=== PATIENT | female | born 1950 | race Caucasian/White ===

== ENCOUNTER 2017-06-28 02:35 | Inpatient (IN) | payer MEDICARE, SELFPAY ==
[2017-06-28] VITALS (27 sets, daily range): BP systolic 108–157; BP diastolic 55–138; PULSE 89–114; RESP 12–41; TEMP 37.1–38.1; O2SAT 88–99; BMI 31.1; BMI 30.2
--- NOTE | 2017-06-28 02:45 | NURSING ---
CALLED FOR EKG PER RN REQUEST, PULLED OLD EKG'S FOR
--- NOTE | 2017-06-28 02:48 | EKG12_ITS ---
Test Reason : SOB Blood Pressure : / mmHG Vent. Rate : 106 BPM Atrial Rate : 106 BPM P-R Int : 160 ms QRS Dur : 084 ms QT Int : 334 ms P-R-T Axes : 084 063 041 degrees QTc Int : 443 ms Sinus tachycardia Low voltage QRS (limb leads) Confirmed by JAMES LEACH, LUZ ([id number]), editor producer GOPI RAMIREZ ([id number] on 06/29/2017 3:39:27 PM Referred By: CHAPO Confirmed By:LUZ RAMIREZ MD
--- NOTE | 2017-06-28 02:48 | RAD_ITS ---
STUDY: X-RAY CHEST REASON FOR EXAM: Female, 66 years old. Shortness of breath. TECHNIQUE: AP portable chest. COMPARISON: 06/24/2017. FINDINGS: The lungs are clear and expanded. There is no demonstrated pleural abnormality. Normal size heart. Normal mediastinum and denae. Normal visualized pulmonary arteries. Normal visualized aortic arch and descending thoracic aorta. Osseous structures unchanged. There is no demonstrated abnormality of the visualized soft tissue structures of the upper abdomen. RAD/Chest 1 View (Portable) IMPRESSION: No acute cardiopulmonary disease. Electronically Signed: Danilo Rodriguez MD at 4:48 EST , Service support ,
[2017-06-28 03:03] LABS: Absolute Lymphocyte Count 1.08 X10^3/ul (0.83-4.51); Absolute Neutrophil Count 3.8 X10^3/uL (2.0-7.7); Basophil# 0.03 X10^3/uL; Basophil% 0.6 % (0-1); Eosinophil# 0.02 X10^3/uL; Eosinophils% 0.4 % (0-5); Hematocrit 43.3 % (37-47); Lymphocyte # 1.08 X10^3/ul (4.0); Lymphocyte % 20.1 % (19-41); Mean Corp Hgb Conc 32.3 g/gl (32-36); Mean Corpuscular Volume 95.8 fL (81-99); Mean Platelet Vol. 9.3 fl (6.2-12.0); Monocyte# 0.39 X10^3/uL; Monocyte% 7.3 % (0-10); Neutrophil # 3.82 X10^3/uL (2.7-7.7); Neutrophil % 71.2 % (47-70); Platelet Count 171 K/mm3 (150-450); RBC Distribution Width CV 13.6 % (11.6-14.6); RBC Distribution Width SD 46.5 fl (35.1-43.9); Red Blood Count 4.52 M/mm3 (4.2-5.4); White Blood Count 5.4 K/mm3 (4.4-11.0)
[2017-06-28] MEDS: Albuterol 2.5 MG/3 ML VIAL.NEB. INHALATION (03:07)
[2017-06-28] MEDS: Ipratropium/Albuterol Sulfate 3 ML AMPUL.NEB INHALATION ×6 (03:07→22:40)
[2017-06-28 03:11] LABS: Allen Test POS; Base Excess 5 mmol/L (-2 to +2); Bicarbonate 29.6 mmol/L (22-26); Blood Gas Specimen Type ART; FI02 50; PO2 116 mmHG (75-100); SITE L Radial; SO2 98 % (95-99); Time Given 300; Total Carbon Dioxide 31 mmol/L; pCO2 48.4 mmHg (35-45); pH 7.39 (7.35-7.45)
[2017-06-28] MEDS: Acetaminophen 500 MG Tablet 1000 MG PO (03:11)
[2017-06-28] MEDS: 0.9% Normal Saline 1,000 ML 999 ML IV (03:12)
[2017-06-28] MEDS: MethylPREDNISolone 125 MG/2 ML Vial IV (03:17)
[2017-06-28 03:51] LABS: POSITIVE COUNT NO; POSITIVE DIFFERENTIAL NO; POSITIVE MORPHOLOGY NO
[2017-06-28 03:55] LABS: Anion Gap 9 (5-15); BUN 9 mg/dL (7-18); BUN/Creat Ratio 17.8 RATIO (10-20); Calcium,Total 8.3 mg/dL (8.5-10.1); Chloride 101 mmol/L (98-107); Creatinine, Serum 0.51 mg/dL (0.55-1.02); EST Glomerular Filtration Rate 129 mL/min (>60); Est Glom Filt Rate - Afr Amer 156 mL/min (>60); Estimated Creatinine Clearance 49.12 ml/min; Glucose 144 mg/dL (70-110); Potassium 3.7 mmol/L (3.5-5.1); Sodium Level 141 mmol/L (136-145)
--- NOTE | 2017-06-28 05:03 | ED.DCSUM_ITS ---
- ER Visit Summary Date of Service: 06/28/17 Chief Complaint: Shortness of breath History of Present Illness: The patient is a 66 F who presents with shortness of breath. History was somewhat limited as the patient presented in respiratory distress only able speak short sentences. She does have a history of COPD. She states that she has been ill with congestion rhinorrhea fevers and cough. She has had some nausea vomiting and diarrhea as well. She was recently seen in the emergency department. She had a negative flu swab. She states that she has been short of breath since yesterday but it acutely worsened this afternoon. She complains of chest tightness. Physical Examination: Initial blood pressure 157/138 temperature 100.5 heart rate 114 respiratory rate 41 pulse ox 92% Patient is written respiratory distress significantly tachypneic and only able speak in single word sentences she does have diffuse and story and expiratory wheezing and severely diminished air exchange Heart is regular rhythm tachycardia Abdomen soft nontender Alert No focal or lateralizing neurological deficits Test Results: EKG shows sinus rhythm at rate 106. CBC BMP troponin unremarkable. ABG shows pH 7.39 PCO2 48 PO2 116. Chest x-ray shows no acute process. Emergency Department Course and Treatment: Although the patient was maintaining a normal oxygen saturation she was in significant distress and was placed on BiPAP with significant improvement in work of breathing. She was treated with IV Solu-Medrol and IV Levaquin for COPD exacerbation. She was given Tylenol for fever. On reevaluation she is resting comfortably. We will try to wean her off BiPAP to Ventimask or nasal cannula. Patient to be discussed with hospitalist and admitted. Treatment Plan: [] Disposition: Admit Impression: COPD exacerbation This note was generated with epicurio dictation software. It may contain incorrect words, spelling, and punctuation that were not noted in review of the chart prior to signing ED Disposition - Plan for ED Patient: Chief Complaint: Shortness of Breath Referrals: Patel Veliz Chi, MD [Primary Care Provider] -
--- NOTE | 2017-06-28 06:04 | HP.PCM_ITS ---
Problem List (1) Acute exacerbation of chronic obstructive airways disease Status: Acute (2) Depression Status: Chronic (3) Insomnia Status: Chronic Comment: She takes Temazepam every night for sleep, prescribed by Dr. Veliz (4) Hypertension Status: Chronic (5) Physical debility Status: Chronic (6) Degenerative disc disease, lumbar Status: Chronic (7) Pain, chronic Status: Chronic (8) Seizure disorder Status: Chronic (9) Restless leg syndrome Status: Chronic (10) Obstructive sleep apnea Status: Chronic Comment: non-compliant with CPAP but has oxygen to wear at night (11) Smokes with greater than 40 pack year history Status: Chronic History of Present Illness Date of Admission: 06/28/17 Chief Complaint: shortness of breath The patient is a 66 year old female patient with a history of COPD presents to the ER with shortness of breath. She states she has been unable to smoke a cigarette for two days. This morning she was more acute and unable to get a deep breath in. Upon arrival to the ER she was restless and her respiratory rate was at 28 per minute. BIPAP was initiated and ABG done. She responded to this therapy. Chest films are negative for acute disease. The patient will need to be admitted for COPD exacerbation. She is requesting her methadone which she takes for spinal stenosis and seems very anxious about this. Past Medical History Past Medical History (Chronic Problems): Chronic Problems Depression (Chronic) Insomnia (Chronic) She takes Temazepam every night for sleep, prescribed by Dr. Veliz Hypertension (Chronic) Physical debility (Chronic) Degenerative disc disease, lumbar (Chronic) Pain, chronic (Chronic) Seizure disorder (Chronic) Restless leg syndrome (Chronic) COPD (chronic obstructive pulmonary disease) (Chronic) 1 ppd now smoker 4 ppd Obstructive sleep apnea (Chronic) non-compliant with CPAP but has oxygen to wear at night Smokes with greater than 40 pack year history (Chronic) Allergies Penicillins Allergy (Verified 06/28/17 02:38) Anaphylaxis codeine Adverse Reaction (Verified 06/28/17 02:38) Nausea Home Medications: Ambulatory Orders Medication Instructions Recorded Albuterol Aerosols [Ventolin 2.5 mg INHALATION Q4H PRN 05/12/16 Aerosols] Albuterol IH (ProAir) [Proair Hfa] 2 puff INHALATION BID 05/12/16 Alendronate Sodium [Fosamax] 70 mg PO Q7D@0700 05/12/16 Calcium Carbonate/Vitamin D3 1 each PO DAILY 05/12/16 [Oyster Shell 500-Vit D3 200 Tb] Etodolac 400 mg PO BID 05/12/16 Fluticasone/Salmeterol [Advair 2 puff INHALATION BID 05/12/16 250/50 Mcg Diskus] Gabapentin [Neurontin] 300 mg PO BIDCM 05/12/16 Methadone HCl 10 mg PO 4X/DAY 05/12/16 Phenytoin Na [Dilantin] 100 mg PO 4X/DAY 05/12/16 Pravastatin [Pravachol] 40 mg PO DAILY 05/12/16 Ropinirole HCl [Requip] 2 mg PO DAILY 05/12/16 Tolterodine Tartrate [Detrol LA] 4 mg PO DAILY 05/12/16 Bisacodyl [Dulcolax] 10 mg PO DAILY PRN PRN #0 tablet 06/25/16 Famotidine [Pepcid] 20 mg PO BID tablet 06/25/16 Mirtazapine [Remeron] 15 mg PO QHS tablet 06/25/16 Phenobarbital 30 mg PO BID #20 tablet 06/25/16 Benzonatate [Tessalon Perle] 100 mg PO 4X/DAY PRN PRN #30 cap 06/24/17 Oseltamivir Phosphate [Tamiflu] 75 mg PO BID #9 cap 06/24/17 Prednisone [Deltasone] 20 mg PO BID #10 tab 06/24/17 Temazepam [Restoril] 30 mg PO QHS 06/24/17 Surgical History: appendectomy, cholecystectomy, - - Fractured right ankle, carpal tunnel surgery, removal of teeth, right ovariectomy and fallopian tube removal. 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 Denies: Sputum production Gastrointestinal: Denies: Abdominal Pain, Nausea, Vomiting Genitourinary: Denies: Dysuria Musculoskeletal: Reports: Back Pain. Denies: Joint Pain, Joint Tenderness Skin: Denies: Rash, Wounds Neurological: Denies: Numbness, Tingling, Focal weakness Psychiatric: Reports: Anxiety. Denies: Depression, Homicidal Ideations, Suicidal Ideations Hematologic/ Lymphatic: Denies: Easy Bruising, Easy Bleeding VTE Information - Inpt Only VTE Present on Admission: No VTE Mechan Device Prophylaxis: None VTE Pharm Prophylaxis ordered?: Yes - Physical Exam General: Alert, Oriented x3, Cooperative HEENT: Atraumatic, Normocephalic Neck: Supple Lungs: Diminished, Rhonchi, Short of Breath, Tachypneic, Wheezes Cardiovascular: Regular rate, Normal S1, Normal S2, No murmurs Abdomen: Bowel Sounds Present, Soft, Non Tender, Obese Extremities: No edema Skin: No rashes Musculoskeletal: No Tenderness to Palpation of Joints or Extremities Neurological: Neuro grossly intact Psych/Mental Status: Normal Affect, Appropriate Vital Signs Temp Pulse Resp BP Pulse Ox 100.5 F H 99 19 H 139/71 H 98 06/28/17 02:36 06/28/17 04:06 06/28/17 04:06 06/28/17 04:06 06/28/17 04:06 Oxygen Delivery Method Bi-pap Weight: 187 lb 2.759 oz Body Mass Index (BMI) 31.1 Laboratory Tests Past 24 Hrs 06/28/17 06/28/17 06/28/17 02:45 02:45 03:04 WBC 5.4 RBC 4.52 Hgb 14.0 Hct 43.3 MCV 95.8 MCH 31.0 MCHC 32.3 RDW 13.6 RDW Differential 46.5 H Plt Count 171 MPV 9.3 Immature Gran % (Auto) 0.400 Neut % (Auto) 71.2 H Lymph % (Auto) 20.1 [place] % (Auto) 7.3 Eos % (Auto) 0.4 Baso % (Auto) 0.6 Absolute Neuts (auto) 3.8 Absolute Lymphs (auto) 1.08 Total Counted Not Reportable Specimen Type ART Sample Site L Radial pH 7.39 Bicarbonate Actual 29.6 H POC Total CO2 31 Base Excess 5 H O2 Saturation 98 O2 % 50 ABG pCO2 48.4 H ABG pO2 116 H Romario Test POS O2 Delivery Device Vent Mask Blood Gas Notified Whom ED MD Blood Gas Notified Time 300 Sodium 141 Potassium 3.7 Chloride 101 Carbon Dioxide 31.0 Anion Gap 9 BUN 9 Creatinine 0.51 L Estim Creat Clear Calc 49.12 Est GFR (MDRD) Af Amer 156 Est GFR (MDRD) Non-Af 129 BUN/Creatinine Ratio 17.8 Glucose 144 H Calcium 8.3 L Troponin I < 0.02 Assessment/Plan Chronic Problems Depression (Chronic) Insomnia (Chronic) She takes Temazepam every night for sleep, prescribed by Dr. Veliz Hypertension (Chronic) Physical debility (Chronic) Degenerative disc disease, lumbar (Chronic) Pain, chronic (Chronic) Seizure disorder (Chronic) Restless leg syndrome (Chronic) COPD (chronic obstructive pulmonary disease) (Chronic) 1 ppd now smoker 4 ppd Obstructive sleep apnea (Chronic) non-compliant with CPAP but has oxygen to wear at night Smokes with greater than 40 pack year history (Chronic) Assessment - COPD exacerbation Plan - admit to medical surgical floor - continue BIPAP - solumedrol 60mg IV q 6hrs - levaquin 500mg IV q day - Duoneb INH q 4hrs - continue routine home medications for stable conditions - LMWH for DVT prophylaxis - smoking cessation encouraged Code Visit Inpatient E&M: 92827 Init Hosp L3
[2017-06-28] MEDS: LORazepam 2 MG/ML Syringe 1 MG IV (06:25)
--- NOTE | 2017-06-28 06:37 | NURSING ---
304 COPD EXAC CED
--- NOTE | 2017-06-28 09:54 | NURSING ---
NEW ROOM 105
--- NOTE | 2017-06-28 10:07 | CASEMGMT ---
Social Work Note Placed call to Svitlana Walker as she was the pt's old block and case maker through [employer] [facility]. Notified that the pt had been admitted this morning for COPD exacerbation. According to Svitlana the pt has a new block and case maker, Laury Weldon, who can be contacted at [phone]. Svitlana to update Laury. Notified CRISTIANO Pablo, as the pt moved to her unit PCU of this information. DEBBIE CooperW
--- NOTE | 2017-06-28 10:50 | CPS ---
PT TRANSPORTED TO PCU ON 4L NC. SPO2 96%. UPON ARRIVAL TO PCU PT COMPLAINING OF SOB AND COUGH. PT PLACED BACK ON BIPAP AND REPORT GIVEN TO FLOOR THERAPIST. NO FURTHER NEEDS AT THIS TIME.
[2017-06-28] MEDS: Pramipexole Di-HCl 1 MG Tablet PO (12:04)
[2017-06-28] MEDS: Calcium Carb/Vitamin D 1 TABLET Tablet PO (12:04)
[2017-06-28] MEDS: MethylPREDNISolone 125 MG/2 ML Vial 60 MG IV ×3 (13:17→23:01)
[2017-06-28] MEDS: Methadone 10 MG Tablet PO ×3 (13:18→22:58)
[2017-06-28] MEDS: Enoxaparin 40 MG/0.4 ML Syringe SC (13:19)
[2017-06-28] MEDS: Tolterodine Tartrate 4 MG CAP.SA PO (13:19)
[2017-06-28] MEDS: Phenytoin Na 100 MG Capsule PO ×3 (13:19→22:58)
[2017-06-28] MEDS: Gabapentin 300 MG Capsule PO ×2 (13:19→17:13)
[2017-06-28] MEDS: Famotidine 20 MG Tablet PO ×2 (13:19→22:58)
[2017-06-28] MEDS: 0.9% NaCl Peripheral Flush Adult/Peds IV ×3 (13:23→23:02)
--- NOTE | 2017-06-28 13:55 | PCM.PN.HOSP ---
Patient Problems: Active and Suspected Problems Acute exacerbation of chronic obstructive airways disease (Acute) Subjective: Breathing better with the BiPAP Vitals/I&O's: Vital Signs Temp Pulse Resp BP Pulse Ox 37.3 C 96 18 128/77 H 98 06/28/17 11:00 06/28/17 11:13 06/28/17 11:00 06/28/17 11:00 06/28/17 11:00 Oxygen Delivery Method Bi-pap Weight: 82.4 kg Body Mass Index (BMI) 30.2 Intake and Output for Last 24 Hours 06/26/17 06/27/17 06/28/17 23:59 23:59 23:59 Intake Total 120 / 120 Balance 120 / 120 General: Alert, Cooperative, No apparent distress HEENT: Atraumatic, Normocephalic Neck: No Nodes, Thyroid Normal Size and Texture Lungs: No rhonchi, No wheeze, Diminished Cardiovascular: Regular rate, Regular Rhythm, Normal S1, Normal S2, No murmurs Abdomen: Bowel Sounds Present, Soft, Non Tender, Non-Distended, No Hepato-splenomegaly Extremities: No edema, No Calf Tenderness Psych/Mental Status: Normal Affect, Appropriate Current Medications Acetaminophen (Tylenol) 650 mg PO Q6H PRN PRN PRN Reason: Mild Pain (scale 0-3)/T>100.7 Albuterol/Ipratropium (Duoneb) 3 ml INHALATION Q4H.RT [facility] Last Admin: 06/28/17 11:00 Dose: 3 ml Alendronate Sodium (Fosamax) 70 mg PO Q7D@0700 [facility] Benzonatate (Tessalon Perle) 100 mg PO 4X/DAY PRN PRN PRN Reason: COUGH Bisacodyl (Dulcolax) 10 mg PO DAILY PRN PRN PRN Reason: Constipation Calcium/Vitamin D (Os-Nolan 500mg + D) [facility] Last Admin: 06/28/17 12:04 Dose: 1 tablet Enoxaparin Sodium (Lovenox) 40 mg SC DAILY@1000 [facility] Last Admin: 06/28/17 13:19 Dose: 40 mg Famotidine (Pepcid) 20 mg PO BID [facility] Last Admin: 06/28/17 13:19 Dose: 20 mg Gabapentin (Neurontin) [facility] Last Admin: 06/28/17 13:19 Dose: 300 mg Levofloxacin (Levaquin) 500 mg in 100 mls @ 100 mls/hr IV Q24 [facility] Magnesium Hydroxide (Milk Of Magnesia) 30 ml PO DAILY PRN PRN PRN Reason: Constipation Methadone HCl () 10 mg PO 4X/DAY [facility] Last Admin: 06/28/17 13:18 Dose: 10 mg Methylprednisolone (Solu-Medrol) 60 mg IV Q6 [facility] Last Admin: 06/28/17 13:17 Dose: 60 mg Mirtazapine (Remeron) 15 mg PO QHS [facility] Ondansetron HCl (Zofran) 4 mg IV Q8H PRN PRN PRN Reason: Nausea Phenobarbital (Phenobarbital) 32.4 mg PO BID [facility] Last Admin: 06/28/17 13:17 Dose: 32.4 mg Phenytoin Sodium (Dilantin) 100 mg PO 4X/DAY [facility] Last Admin: 06/28/17 13:19 Dose: 100 mg Pramipexole Dihydrochloride (Mirapex) 1 mg PO DAILY [facility] Last Admin: 06/28/17 12:04 Dose: 1 mg Pravastatin Sodium (Pravachol) 40 mg PO DAILY@2200 [facility] Sodium Chloride () 5 - 30 ml IV UD PRN PRN Reason: SALINE FLUSH Last Admin: 06/28/17 13:23 Dose: 10 ml Temazepam (Restoril) 30 mg PO HS [facility] Tolterodine Tartrate (Detrol La) 4 mg PO DAILY [facility] Last Admin: 06/28/17 13:19 Dose: 4 mg Assessment/Plan Active and Suspected Problems Acute exacerbation of chronic obstructive airways disease (Acute) 1. Acute COPD exacerbation . Improved but still requiring BiPAP with bronchodilators, Solu-Medrol. Wean BiPAP as tolerated. 2. DVT prophylaxis with Lovenox Code Visit Procedures: Other Procedure - See Report - Non billable rounding.
--- NOTE | 2017-06-28 13:58 | PN_ITS ---
Patient Problems: Active and Suspected Problems Acute exacerbation of chronic obstructive airways disease (Acute) Subjective: Breathing better with the BiPAP Vitals/I&O's: Vital Signs Temp Pulse Resp BP Pulse Ox 37.3 C 96 18 128/77 H 98 06/28/17 11:00 06/28/17 11:13 06/28/17 11:00 06/28/17 11:00 06/28/17 11:00 Oxygen Delivery Method Bi-pap Weight: 82.4 kg Body Mass Index (BMI) 30.2 Intake and Output for Last 24 Hours 06/26/17 06/27/17 06/28/17 23:59 23:59 23:59 Intake Total 120 / 120 Balance 120 / 120 General: Alert, Cooperative, No apparent distress HEENT: Atraumatic, Normocephalic Neck: No Nodes, Thyroid Normal Size and Texture Lungs: No rhonchi, No wheeze, Diminished Cardiovascular: Regular rate, Regular Rhythm, Normal S1, Normal S2, No murmurs Abdomen: Bowel Sounds Present, Soft, Non Tender, Non-Distended, No Hepato- splenomegaly Extremities: No edema, No Calf Tenderness Psych/Mental Status: Normal Affect, Appropriate Current Medications Acetaminophen (Tylenol) 650 mg PO Q6H PRN PRN PRN Reason: Mild Pain (scale 0-3)/T>100.7 Albuterol/Ipratropium (Duoneb) 3 ml INHALATION Q4H.RT [facility] Last Admin: 06/28/17 11:00 Dose: 3 ml Alendronate Sodium (Fosamax) 70 mg PO Q7D@0700 [facility] Benzonatate (Tessalon Perle) 100 mg PO 4X/DAY PRN PRN PRN Reason: COUGH Bisacodyl (Dulcolax) 10 mg PO DAILY PRN PRN PRN Reason: Constipation Calcium/Vitamin D (Os-Nolan 500mg + D) [facility] Last Admin: 06/28/17 12:04 Dose: 1 tablet Enoxaparin Sodium (Lovenox) 40 mg SC DAILY@1000 [facility] Last Admin: 06/28/17 13:19 Dose: 40 mg Famotidine (Pepcid) 20 mg PO BID [facility] Last Admin: 06/28/17 13:19 Dose: 20 mg Gabapentin (Neurontin) [facility] Last Admin: 06/28/17 13:19 Dose: 300 mg Levofloxacin (Levaquin) 500 mg in 100 mls @ 100 mls/hr IV Q24 [facility] Magnesium Hydroxide (Milk Of Magnesia) 30 ml PO DAILY PRN PRN PRN Reason: Constipation Methadone HCl () 10 mg PO 4X/DAY [facility] Last Admin: 06/28/17 13:18 Dose: 10 mg Methylprednisolone (Solu-Medrol) 60 mg IV Q6 [facility] Last Admin: 06/28/17 13:17 Dose: 60 mg Mirtazapine (Remeron) 15 mg PO QHS [facility] Ondansetron HCl (Zofran) 4 mg IV Q8H PRN PRN PRN Reason: Nausea Phenobarbital (Phenobarbital) 32.4 mg PO BID [facility] Last Admin: 06/28/17 13:17 Dose: 32.4 mg Phenytoin Sodium (Dilantin) 100 mg PO 4X/DAY [facility] Last Admin: 06/28/17 13:19 Dose: 100 mg Pramipexole Dihydrochloride (Mirapex) 1 mg PO DAILY [facility] Last Admin: 06/28/17 12:04 Dose: 1 mg Pravastatin Sodium (Pravachol) 40 mg PO DAILY@2200 [facility] Sodium Chloride () 5 - 30 ml IV UD PRN PRN Reason: SALINE FLUSH Last Admin: 06/28/17 13:23 Dose: 10 ml Temazepam (Restoril) 30 mg PO HS [facility] Tolterodine Tartrate (Detrol La) 4 mg PO DAILY [facility] Last Admin: 06/28/17 13:19 Dose: 4 mg Assessment/Plan Active and Suspected Problems Acute exacerbation of chronic obstructive airways disease (Acute) 1. Acute COPD exacerbation . Improved but still requiring BiPAP with bronchodilators, Solu-Medrol. Wean BiPAP as tolerated. 2. DVT prophylaxis with Lovenox Code Visit Procedures: Other Procedure - See Report - Non billable rounding.
[2017-06-28] MEDS: Temazepam 15 MG Capsule 30 MG PO (22:58)
[2017-06-28] MEDS: Mirtazapine 15 MG Tablet PO (22:58)
[2017-06-28] MEDS: Pravastatin 40 MG Tablet PO (22:59)
[2017-06-29] VITALS (18 sets, daily range): BP systolic 95–130; BP diastolic 44–72; PULSE 59–91; RESP 12–22; TEMP 36.3–36.8; O2SAT 95–99
[2017-06-29] MEDS: Ipratropium/Albuterol Sulfate 3 ML AMPUL.NEB INHALATION ×6 (02:40→23:00)
[2017-06-29] MEDS: MethylPREDNISolone 125 MG/2 ML Vial 60 MG IV ×4 (05:10→23:48)
[2017-06-29] MEDS: 0.9% NaCl Peripheral Flush Adult/Peds IV ×2 (05:10→10:58)
--- NOTE | 2017-06-29 05:32 | NURSING ---
pt states she sometimes cuts her upper arms to relieve stress and denies any suicidal ideations. will continue to monitor.
[2017-06-29 06:39] LABS: Absolute Lymphocyte Count 1.68 X10^3/ul (0.83-4.51); Absolute Neutrophil Count 2.2 X10^3/uL (2.0-7.7); Basophil# 0.04 X10^3/uL; Basophil% 0.9 % (0-1); Hematocrit 34.6 % (37-47); Hemoglobin 11.2 g/dl (12.0-15.0); Lymphocyte # 1.68 X10^3/ul (4.0); Lymphocyte % 36.9 % (19-41); Mean Corp Hgb Conc 32.4 g/gl (32-36); Mean Corpuscular Hgb 31.1 pg (27.0-32.0); Mean Corpuscular Volume 96.1 fL (81-99); Mean Platelet Vol. 9.2 fl (6.2-12.0); Monocyte# 0.61 X10^3/uL; Monocyte% 13.4 % (0-10); Neutrophil # 2.19 X10^3/uL (2.7-7.7); Neutrophil % 48.1 % (47-70); Platelet Count 157 K/mm3 (150-450); RBC Distribution Width CV 13.6 % (11.6-14.6); RBC Distribution Width SD 45.7 fl (35.1-43.9); White Blood Count 4.6 K/mm3 (4.4-11.0)
[2017-06-29 06:43] LABS: Differential Indicated SCAN CRITERIA MET; POSITIVE COUNT NO; POSITIVE DIFFERENTIAL NO; POSITIVE MORPHOLOGY YES
[2017-06-29 07:00] LABS: ALB/GLOB Ratio 0.6 RATIO (0.9-2.4); AST(SGOT) 50 U/L (15-37); Alanine Aminotransfer ALT/SGPT 31 U/L (12-78); Albumin, Serum 2.5 g/dL (3.4-5.0); Alkaline Phosphatase 58 U/L (45-117); Anion Gap 9 (5-15); BUN 19 mg/dL (7-18); BUN/Creat Ratio 47.6 RATIO (10-20); Calcium,Total 7.7 mg/dL (8.5-10.1); Chloride 103 mmol/L (98-107); EST Glomerular Filtration Rate 169 mL/min (>60); Est Glom Filt Rate - Afr Amer 205 mL/min (>60); Estimated Creatinine Clearance 49.12 ml/min; Globulin 3.9 g/dL (2.2-4.2); Glucose 121 mg/dL (70-110); Potassium 3.7 mmol/L (3.5-5.1); Protein, Total 6.4 g/dL (6.4-8.2); Sodium Level 138 mmol/L (136-145)
[2017-06-29 07:05] LABS: Differential Comment SCANNED
[2017-06-29] MEDS: Gabapentin 300 MG Capsule PO ×2 (08:03→17:13)
[2017-06-29] MEDS: Calcium Carb/Vitamin D 1 TABLET Tablet PO (08:03)
--- NOTE | 2017-06-29 08:15 | PCM.CONS.GEN ---
Problem List (1) COPD (chronic obstructive pulmonary disease) Status: Acute Qualifiers: COPD type: COPD with acute exacerbation Qualified Code(s): J44.1 - Chronic obstructive pulmonary disease with (acute) exacerbation Comment: 1 ppd now smoker 4 ppd (2) Depression Status: Chronic (3) Insomnia Status: Chronic Comment: She takes Temazepam every night for sleep, prescribed by Dr. Veliz (4) Hypertension Status: Chronic (5) Degenerative disc disease, lumbar Status: Chronic (6) Pain, chronic Status: Chronic (7) Seizure disorder Status: Chronic (8) Restless leg syndrome Status: Chronic (9) Obstructive sleep apnea Status: Chronic Comment: non-compliant with CPAP but has oxygen to wear at night (10) Smokes with greater than 40 pack year history Status: Chronic Reason for Consult Date of Consultation: 06/29/17 Reason for Consultation: COPD History of Present Illness: The patient is a 66 year old F with a past medical history as below who presented to the ER on 06/28/17 with complaints of increased shortness of breath, intermittent fevers and chills, cough, chest tightness, and chest congestion. The patient did present to the ER on 06/24/17 with upper respiratory symptoms. A chest x-ray was done at that time and showed no acute cardiopulmonary disease. A flu swab was also completed which was normal. The patient was sent home. She reports she then worsened with her cough, shortness of breath, and fevers/chills, so she came back. She denies any recent sick contacts, antibiotic use, or steroids. Actually, she states she has never been on steroids despite her lung history. She denies any history of pneumonia, except when she was a teenager. She has been admitted to the hospital for COPD exacerbation previously, about the same time last year. Patient has a history of obstructive sleep apnea per her report, but she is not compliant with her CPAP. She does however wear 4 L of oxygen continuously throughout the day and night. Patient reports she has been on oxygen for over 10 years, which is when she had her sleep study as well. She believes she had her sleep study here at [facility]. She lives alone in her apartment complex, and states there are several people there that she has been around and that have been coughing. The patient denies any history of tuberculosis or exposure to asbestos. 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 Workup in the ER included chest x-ray which was negative for acute cardiopulmonary disease, did show hyperinflation. Lab work did not show a leukocytosis. Chemistry was remarkable for a creatinine of 0.51, glucose 144. Troponin was negative. ABG was performed on a Venturi mask and showed a pH of 7.39, bicarb of 29.6, PCO2 48.4, PO2 116. She was then placed on BiPAP due to significant respiratory distress and had significant improvement. She was given 4 mg of IV morphine ?1, IV Solu-Medrol, IV Levaquin, and Tylenol for fever. She was admitted to the progressive care unit for further management of her presumed COPD exacerbation. Past Medical History Past Medical History (Chronic Problems): Chronic Problems Depression (Chronic) Insomnia (Chronic) She takes Temazepam every night for sleep, prescribed by Dr. Veliz Hypertension (Chronic) Physical debility (Chronic) Degenerative disc disease, lumbar (Chronic) Pain, chronic (Chronic) Seizure disorder (Chronic) Restless leg syndrome (Chronic) Obstructive sleep apnea (Chronic) non-compliant with CPAP but has oxygen to wear at night Smokes with greater than 40 pack year history (Chronic) Allergies Penicillins Allergy (Verified 06/28/17 02:38) Anaphylaxis codeine Adverse Reaction (Verified 06/28/17 02:38) Nausea Home Medications: Ambulatory Orders Medication Instructions Recorded Albuterol Aerosols [Ventolin 2.5 mg INHALATION Q4H PRN 05/12/16 Aerosols] Albuterol IH (ProAir) [Proair Hfa] 2 puff INHALATION BID 05/12/16 Alendronate Sodium [Fosamax] 70 mg PO Q7D@0700 05/12/16 Calcium Carbonate/Vitamin D3 1 each PO DAILY 05/12/16 [Oyster Shell 500-Vit D3 200 Tb] Etodolac 400 mg PO BID 05/12/16 Fluticasone/Salmeterol [Advair 2 puff INHALATION BID 05/12/16 250/50 Mcg Diskus] Gabapentin [Neurontin] 300 mg PO BIDCM 05/12/16 Methadone HCl 10 mg PO 4X/DAY 05/12/16 Phenytoin Na [Dilantin] 100 mg PO 4X/DAY 05/12/16 Pravastatin [Pravachol] 40 mg PO DAILY 05/12/16 Ropinirole HCl [Requip] 2 mg PO DAILY 05/12/16 Tolterodine Tartrate [Detrol LA] 4 mg PO DAILY 05/12/16 Bisacodyl [Dulcolax] 10 mg PO DAILY PRN PRN #0 tablet 06/25/16 Famotidine [Pepcid] 20 mg PO BID tablet 06/25/16 Mirtazapine [Remeron] 15 mg PO QHS tablet 06/25/16 Phenobarbital 30 mg PO BID #20 tablet 06/25/16 Benzonatate [Tessalon Perle] 100 mg PO 4X/DAY PRN PRN #30 cap 06/24/17 Oseltamivir Phosphate [Tamiflu] 75 mg PO BID #9 cap 06/24/17 Prednisone [Deltasone] 20 mg PO BID #10 tab 06/24/17 Temazepam [Restoril] 30 mg PO QHS 06/24/17 Surgical History: appendectomy, cholecystectomy, - - Fractured right ankle, carpal tunnel surgery, removal of teeth, right ovariectomy and fallopian tube removal. Psychiatric History: Depression - untreated [employer] History: No pertinent [employer] history Lives: Alone Smoking Status: Current every day smoker Tobacco Use: Cigarettes Alcohol: None Drugs: None - *Family History Maternal History Items: No pertinent history Paternal History Items: No pertinent history Sibling History Items: No pertinent history Review of Systems Constitutional: Reports: Chills, Fever, Fatigue. Denies: Anorexia, Night Sweats, Malaise, Weakness, Weight Change Eyes: Denies: Vision Change HEENT: Reports: Head Aches, Post Nasal Drip. Denies: Difficulty Swallowing, Nasal bleeding, Nasal Congestion, Sinus Congestion, Sinus Drainage, Sore Throat Cardiovascular: Reports: Chest Tightness, Orthopnea. Denies: Chest Pain, Claudication, Edema, Light Headedness, Palpitations, Paroxysmal Noc. Dyspnea, Syncope Respiratory: Reports: Cough, Shortness of breath at rest, Shortness of breath upon exertion, Sputum production - white, thick, Wheezing. Denies: Hemoptysis, Pleuritic Pain Gastrointestinal: Reports: Diarrhea - x1 several days ago, none since, Nausea - intermittent. Denies: Abdominal Pain, Constipation, Dyspepsia, Hematemesis, Hematochezia, Melena, Vomiting Genitourinary: Denies: Dysuria, Frequency, Hematuria, Nocturia, Retention Gynecological: Reports: - - no concerns Musculoskeletal: Reports: Back Pain - chronic Skin: Reports: Dryness, - - evidence of cutting on legs and upper arms Neurological: Reports: Tremor - UEs at times. Denies: Change in Speech, Confusion, Difficulty swallowing, Focal weakness, Numbness, Tingling, Seizures - none recently Psychiatric: Reports: Anxiety, Depression. Denies: Homicidal Ideations, Suicidal Ideations Endocrine: Denies: Change in Body Habitus, Polydipsia, Polyuria Hematologic/ Lymphatic: Reports: Easy Bruising. Denies: Adenopathy, Anemia, Easy Bleeding, Hx of blood clot Patient Problems: Active and Suspected Problems Acute exacerbation of chronic obstructive airways disease (Acute) Subjective: Patient was seen and examined, she was in mild respiratory distress upon my entering room and watching the news. She was upset that she was interrupted. Reports ongoing shortness of breath at rest and with exertion. She does have a hoarse, productive cough white thick sputum. She denies any sore throat, hemoptysis, dizziness, or syncope. She does have some chest tightness. Reports she does better on the BiPAP and is requesting to go back on as she became more dyspneic with conversation. - Physical Exam General: Alert, Oriented x3, Cooperative, Well developed, Well nourished, - - Conversational dyspnea, tachypnea. Appears anxious HEENT: Atraumatic, Normocephalic Oral: Moist Mucosa, No Gingival or Mucosal Lesions/ Ulcerations, - - Edentulous Neck: Supple, No Nodes, Trachea Midline Lungs: No rales, - - Diminished throughout with global wheezing, rhonchi Cardiovascular: Regular rate, Regular Rhythm, Normal S1, Normal S2, No murmurs, No rub noted, No Gallop Abdomen: Bowel Sounds Present, Soft, Non Tender, Non-Distended, Passing Flatus, Obese Extremities: No clubbing, No cyanosis, No edema, Capillary Refill Less than 3 Seconds, Peripheral Pulses Normal Skin: No rashes, - - Scratches to upper extremities and bilateral shins, admitted to hospitalist that she has been cutting Musculoskeletal: No Tenderness to Palpation of Joints or Extremities Lymphatic: No Cervical, Supraclavicular, or Inguinal Adenopathy Neurological: Cranial nerves II-XII grossly intact, Neuro grossly intact, Motor Exam 5/5 strength throughout Psych/Mental Status: Anxious, Impulsive, - - cooperative after some discussion Vital Signs Temp Pulse Resp BP Pulse Ox 97.4 F L 86 16 95/44 L 97 06/29/17 02:34 06/29/17 07:28 06/29/17 07:28 06/29/17 02:34 06/29/17 07:28 Oxygen Flow Rate 5 Oxygen Delivery Method Bi-pap Weight: 181 lb 10.574 oz Body Mass Index (BMI) 30.2 Intake and Output for Last 24 Hours 06/27/17 06/28/17 06/29/17 23:59 23:59 23:59 Intake Total 240 / 240 460 / 460 Balance 240 / 240 460 / 460 Laboratory Tests Past 24 Hrs 06/29/17 06/29/17 06:00 06:00 WBC 4.6 RBC 3.60 L Hgb 11.2 L Hct 34.6 L MCV 96.1 MCH 31.1 MCHC 32.4 RDW 13.6 RDW Differential 45.7 H Plt Count 157 MPV 9.2 Immature Gran % (Auto) 0.700 Neut % (Auto) 48.1 Lymph % (Auto) 36.9 [place] % (Auto) 13.4 H Eos % (Auto) 0.0 Baso % (Auto) 0.9 Absolute Neuts (auto) 2.2 Absolute Lymphs (auto) 1.68 Total Counted Not Reportable Differential Comment SCANNED Sodium 138 Potassium 3.7 Chloride 103 Carbon Dioxide 26.0 Anion Gap 9 BUN 19 H Creatinine 0.40 L Estim Creat Clear Calc 49.12 Est GFR (MDRD) Af Amer 205 Est GFR (MDRD) Non-Af 169 BUN/Creatinine Ratio 47.6 H Glucose 121 H Calcium 7.7 L Total Bilirubin 0.30 AST 50 H ALT 31 Alkaline Phosphatase 58 Total Protein 6.4 Albumin 2.5 L Globulin 3.9 Albumin/Globulin Ratio 0.6 L Assessment/Plan Active and Suspected Problems Acute exacerbation of chronic obstructive airways disease (Acute) RECOMMENDATIONS 1. Wean oxygen supplementation to keep saturations 88-92%. 2. Encourage incentive spirometer 3. Increase activity as tolerated 4. Continue aerosols, add PRN albuterol 5. Obtain respiratory panel 6. Obtain sputum culture 7. Continue IV steroids 8. Walking oximetry prior to discharge 9. Patient may follow-up in the pulmonary clinic if she so desires, she should have baseline pulmonary function tests and a repeat PSG IMPRESSIONS 1. Acute exacerbation of COPD, presumed Patient with diffuse wheezing, tachypnea, shortness of breath. Requesting to go on BiPAP during my examination as it provides significant subjective relief. Current home inhalers include Advair and Ventolin as needed. She follows with Dr. Veliz, does not have a emergency medicine physician assistant. She has never had any lung function tests in the past. She is on baseline 4 L of oxygen continuously at home. Her chest x-ray was reviewed, did show hyperinflation but no acute cardiopulmonary process. I suspect the patient does have COPD, likely advanced, however this has not been confirmed with PFTs. Plan: Continue Duonebs, add PRN albuterol aerosol. No leukocytosis and no purulent sputum, so would hold off on antibiotics for now. Had a temp of 100.5 on arrival but currently afebrile. Continue with IV steroids. Encourage incentive spirometer and increase activity as tolerated. Wean oxygen supplementation to keep saturations 88-92%. Obtain respiratory panel and sputum culture. The patient should have a walking oximetry prior to discharge. The patient may follow-up in the pulmonary clinic if she desires, she should have baseline pulmonary function tests performed to evaluate lung function. 2. Acute on chronic respiratory failure with hypoxia and hypercapnia Again, patient is on baseline 4 L of oxygen,and has been for over 10 years per her report. There is no pulmonary function tests to review or walking oximetry. Her last CT of the chest that is available to view reported hyperinflation of the lungs consistent with COPD, no pleural abnormality. There was mild intrahepatic biliary duct dilatation. Otherwise normal. She has a significant smoking history, she smoked about 4 PPD for 45 years, recently decreased to about a 1/2 to 1 PPD. She notes she never smokes with her oxygen on. She is not currently interested in smoking cessation, however she has thought about it. Smoking cessation was encouraged. 3. Obstructive sleep apnea Noncompliant with CPAP at home. Patient is on several sedating medications at home which could complicate her CHUY and cause more hypoxia. She reports she wears 4 L when sleeping. It has been a while since her last sleep study, she is unsure when. There is no record in our system. 3.
--- NOTE | 2017-06-29 08:18 | CON.PCM_ITS ---
Problem List (1) COPD (chronic obstructive pulmonary disease) Status: Acute Qualifiers: COPD type: COPD with acute exacerbation Qualified Code(s): J44.1 - Chronic obstructive pulmonary disease with (acute) exacerbation Comment: 1 ppd now smoker 4 ppd (2) Depression Status: Chronic (3) Insomnia Status: Chronic Comment: She takes Temazepam every night for sleep, prescribed by Dr. Veliz (4) Hypertension Status: Chronic (5) Degenerative disc disease, lumbar Status: Chronic (6) Pain, chronic Status: Chronic (7) Seizure disorder Status: Chronic (8) Restless leg syndrome Status: Chronic (9) Obstructive sleep apnea Status: Chronic Comment: non-compliant with CPAP but has oxygen to wear at night (10) Smokes with greater than 40 pack year history Status: Chronic Reason for Consult Date of Consultation: 06/29/17 Reason for Consultation: COPD History of Present Illness: The patient is a 66 year old F with a past medical history as below who presented to the ER on 06/28/17 with complaints of increased shortness of breath, intermittent fevers and chills, cough, chest tightness, and chest congestion. The patient did present to the ER on 06/24/17 with upper respiratory symptoms. A chest x-ray was done at that time and showed no acute cardiopulmonary disease. A flu swab was also completed which was normal. The patient was sent home. She reports she then worsened with her cough, shortness of breath, and fevers/ chills, so she came back. She denies any recent sick contacts, antibiotic use , or steroids. Actually, she states she has never been on steroids despite her lung history. She denies any history of pneumonia, except when she was a teenager. She has been admitted to the hospital for COPD exacerbation previously, about the same time last year. Patient has a history of obstructive sleep apnea per her report, but she is not compliant with her CPAP. She does however wear 4 L of oxygen continuously throughout the day and night. Patient reports she has been on oxygen for over 10 years, which is when she had her sleep study as well. She believes she had her sleep study here at [facility]. She lives alone in her apartment complex, and states there are several people there that she has been around and that have been coughing. The patient denies any history of tuberculosis or exposure to asbestos. 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 Workup in the ER included chest x-ray which was negative for acute cardiopulmonary disease, did show hyperinflation. Lab work did not show a leukocytosis. Chemistry was remarkable for a creatinine of 0.51, glucose 144. Troponin was negative. ABG was performed on a Venturi mask and showed a pH of 7.39, bicarb of 29.6, PCO2 48.4, PO2 116. She was then placed on BiPAP due to significant respiratory distress and had significant improvement. She was given 4 mg of IV morphine ?1, IV Solu-Medrol, IV Levaquin, and Tylenol for fever. She was admitted to the progressive care unit for further management of her presumed COPD exacerbation. Past Medical History Past Medical History (Chronic Problems): Chronic Problems Depression (Chronic) Insomnia (Chronic) She takes Temazepam every night for sleep, prescribed by Dr. Veliz Hypertension (Chronic) Physical debility (Chronic) Degenerative disc disease, lumbar (Chronic) Pain, chronic (Chronic) Seizure disorder (Chronic) Restless leg syndrome (Chronic) Obstructive sleep apnea (Chronic) non-compliant with CPAP but has oxygen to wear at night Smokes with greater than 40 pack year history (Chronic) Allergies Penicillins Allergy (Verified 06/28/17 02:38) Anaphylaxis codeine Adverse Reaction (Verified 06/28/17 02:38) Nausea Home Medications: Ambulatory Orders Medication Instructions Recorded Albuterol Aerosols [Ventolin 2.5 mg INHALATION Q4H PRN 05/12/16 Aerosols] Albuterol IH (ProAir) [Proair Hfa] 2 puff INHALATION BID 05/12/16 Alendronate Sodium [Fosamax] 70 mg PO Q7D@0700 05/12/16 Calcium Carbonate/Vitamin D3 1 each PO DAILY 05/12/16 [Oyster Shell 500-Vit D3 200 Tb] Etodolac 400 mg PO BID 05/12/16 Fluticasone/Salmeterol [Advair 2 puff INHALATION BID 05/12/16 250/50 Mcg Diskus] Gabapentin [Neurontin] 300 mg PO BIDCM 05/12/16 Methadone HCl 10 mg PO 4X/DAY 05/12/16 Phenytoin Na [Dilantin] 100 mg PO 4X/DAY 05/12/16 Pravastatin [Pravachol] 40 mg PO DAILY 05/12/16 Ropinirole HCl [Requip] 2 mg PO DAILY 05/12/16 Tolterodine Tartrate [Detrol LA] 4 mg PO DAILY 05/12/16 Bisacodyl [Dulcolax] 10 mg PO DAILY PRN PRN #0 tablet 06/25/16 Famotidine [Pepcid] 20 mg PO BID tablet 06/25/16 Mirtazapine [Remeron] 15 mg PO QHS tablet 06/25/16 Phenobarbital 30 mg PO BID #20 tablet 06/25/16 Benzonatate [Tessalon Perle] 100 mg PO 4X/DAY PRN PRN #30 cap 06/24/17 Oseltamivir Phosphate [Tamiflu] 75 mg PO BID #9 cap 06/24/17 Prednisone [Deltasone] 20 mg PO BID #10 tab 06/24/17 Temazepam [Restoril] 30 mg PO QHS 06/24/17 Surgical History: appendectomy, cholecystectomy, - - Fractured right ankle, carpal tunnel surgery, removal of teeth, right ovariectomy and fallopian tube removal. 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 Denies: Anorexia, Night Sweats , Malaise, Weakness, Weight Change Eyes: Denies: Vision Change HEENT: Reports: Head Aches, Post Nasal Drip. Denies: Difficulty Swallowing, Nasal bleeding, Nasal Congestion, Sinus Congestion, Sinus Drainage, Sore Throat Cardiovascular: Reports: Chest Tightness, Orthopnea. Denies: Chest Pain, Claudication, Edema, Light Headedness, Palpitations, Paroxysmal Noc. Dyspnea, Syncope Respiratory: Reports: Cough, Shortness of breath at rest, Shortness of breath upon exertion, Sputum production - white, thick, Wheezing. Denies: Hemoptysis, Pleuritic Pain Gastrointestinal: Reports: Diarrhea - x1 several days ago, none since, Nausea - intermittent. Denies: Abdominal Pain, Constipation, Dyspepsia, Hematemesis, Hematochezia, Melena, Vomiting Genitourinary: Denies: Dysuria, Frequency, Hematuria, Nocturia, Retention Gynecological: Reports: - - no concerns Musculoskeletal: Reports: Back Pain - chronic Skin: Reports: Dryness, - - evidence of cutting on legs and upper arms Neurological: Reports: Tremor - UEs at times. Denies: Change in Speech, Confusion, Difficulty swallowing, Focal weakness, Numbness, Tingling, Seizures - none recently Psychiatric: Reports: Anxiety, Depression. Denies: Homicidal Ideations, Suicidal Ideations Endocrine: Denies: Change in Body Habitus, Polydipsia, Polyuria Hematologic/ Lymphatic: Reports: Easy Bruising. Denies: Adenopathy, Anemia, Easy Bleeding, Hx of blood clot Patient Problems: Active and Suspected Problems Acute exacerbation of chronic obstructive airways disease (Acute) Subjective: Patient was seen and examined, she was in mild respiratory distress upon my entering room and watching the news. She was upset that she was interrupted. Reports ongoing shortness of breath at rest and with exertion. She does have a hoarse, productive cough white thick sputum. She denies any sore throat, hemoptysis, dizziness, or syncope. She does have some chest tightness. Reports she does better on the BiPAP and is requesting to go back on as she became more dyspneic with conversation. - Physical Exam General: Alert, Oriented x3, Cooperative, Well developed, Well nourished, - - Conversational dyspnea, tachypnea. Appears anxious HEENT: Atraumatic, Normocephalic Oral: Moist Mucosa, No Gingival or Mucosal Lesions/ Ulcerations, - - Edentulous Neck: Supple, No Nodes, Trachea Midline Lungs: No rales, - - Diminished throughout with global wheezing, rhonchi Cardiovascular: Regular rate, Regular Rhythm, Normal S1, Normal S2, No murmurs, No rub noted, No Gallop Abdomen: Bowel Sounds Present, Soft, Non Tender, Non-Distended, Passing Flatus, Obese Extremities: No clubbing, No cyanosis, No edema, Capillary Refill Less than 3 Seconds, Peripheral Pulses Normal Skin: No rashes, - - Scratches to upper extremities and bilateral shins, admitted to hospitalist that she has been cutting Musculoskeletal: No Tenderness to Palpation of Joints or Extremities Lymphatic: No Cervical, Supraclavicular, or Inguinal Adenopathy Neurological: Cranial nerves II-XII grossly intact, Neuro grossly intact, Motor Exam 5/5 strength throughout Psych/Mental Status: Anxious, Impulsive, - - cooperative after some discussion Vital Signs Temp Pulse Resp BP Pulse Ox 97.4 F L 86 16 95/44 L 97 06/29/17 02:34 06/29/17 07:28 06/29/17 07:28 06/29/17 02:34 06/29/17 07:28 Oxygen Flow Rate 5 Oxygen Delivery Method Bi-pap Weight: 181 lb 10.574 oz Body Mass Index (BMI) 30.2 Intake and Output for Last 24 Hours 06/27/17 06/28/17 06/29/17 23:59 23:59 23:59 Intake Total 240 / 240 460 / 460 Balance 240 / 240 460 / 460 Laboratory Tests Past 24 Hrs 06/29/17 06/29/17 06:00 06:00 WBC 4.6 RBC 3.60 L Hgb 11.2 L Hct 34.6 L MCV 96.1 MCH 31.1 MCHC 32.4 RDW 13.6 RDW Differential 45.7 H Plt Count 157 MPV 9.2 Immature Gran % (Auto) 0.700 Neut % (Auto) 48.1 Lymph % (Auto) 36.9 [place] % (Auto) 13.4 H Eos % (Auto) 0.0 Baso % (Auto) 0.9 Absolute Neuts (auto) 2.2 Absolute Lymphs (auto) 1.68 Total Counted Not Reportable Differential Comment SCANNED Sodium 138 Potassium 3.7 Chloride 103 Carbon Dioxide 26.0 Anion Gap 9 BUN 19 H Creatinine 0.40 L Estim Creat Clear Calc 49.12 Est GFR (MDRD) Af Amer 205 Est GFR (MDRD) Non-Af 169 BUN/Creatinine Ratio 47.6 H Glucose 121 H Calcium 7.7 L Total Bilirubin 0.30 AST 50 H ALT 31 Alkaline Phosphatase 58 Total Protein 6.4 Albumin 2.5 L Globulin 3.9 Albumin/Globulin Ratio 0.6 L Assessment/Plan Active and Suspected Problems Acute exacerbation of chronic obstructive airways disease (Acute) RECOMMENDATIONS 1. Wean oxygen supplementation to keep saturations 88-92%. 2. Encourage incentive spirometer 3. Increase activity as tolerated 4. Continue aerosols, add PRN albuterol 5. Obtain respiratory panel 6. Obtain sputum culture 7. Continue IV steroids 8. Walking oximetry prior to discharge 9. Patient may follow-up in the pulmonary clinic if she so desires, she should have baseline pulmonary function tests and a repeat PSG IMPRESSIONS 1. Acute exacerbation of COPD, presumed Patient with diffuse wheezing, tachypnea, shortness of breath. Requesting to go on BiPAP during my examination as it provides significant subjective relief. Current home inhalers include Advair and Ventolin as needed. She follows with Dr. Veliz, does not have a prepper. She has never had any lung function tests in the past. She is on baseline 4 L of oxygen continuously at home. Her chest x-ray was reviewed, did show hyperinflation but no acute cardiopulmonary process. I suspect the patient does have COPD, likely advanced , however this has not been confirmed with PFTs. Plan: Continue Duonebs, add PRN albuterol aerosol. No leukocytosis and no purulent sputum, so would hold off on antibiotics for now. Had a temp of 100.5 on arrival but currently afebrile. Continue with IV steroids. Encourage incentive spirometer and increase activity as tolerated. Wean oxygen supplementation to keep saturations 88-92%. Obtain respiratory panel and sputum culture. The patient should have a walking oximetry prior to discharge. The patient may follow-up in the pulmonary clinic if she desires, she should have baseline pulmonary function tests performed to evaluate lung function. 2. Acute on chronic respiratory failure with hypoxia and hypercapnia Again, patient is on baseline 4 L of oxygen,and has been for over 10 years per her report. There is no pulmonary function tests to review or walking oximetry. Her last CT of the chest that is available to view reported hyperinflation of the lungs consistent with COPD, no pleural abnormality. There was mild intrahepatic biliary duct dilatation. Otherwise normal. She has a significant smoking history, she smoked about 4 PPD for 45 years, recently decreased to about a 1/2 to 1 PPD. She notes she never smokes with her oxygen on. She is not currently interested in smoking cessation, however she has thought about it. Smoking cessation was encouraged. 3. Obstructive sleep apnea Noncompliant with CPAP at home. Patient is on several sedating medications at home which could complicate her CHUY and cause more hypoxia. She reports she wears 4 L when sleeping. It has been a while since her last sleep study, she is unsure when. There is no record in our system. 3.
[2017-06-29] MEDS: Acetaminophen 325 MG Tablet 650 MG PO (08:20)
--- NOTE | 2017-06-29 08:54 | PCM.PN.HOSP ---
Patient Problems: Active and Suspected Problems Acute exacerbation of chronic obstructive airways disease (Acute) Subjective: Patient breathing better. Tolerating being off the BiPAP for peers time. I noted some linear scabs on left upper arm and asked that the patient had had an accident. Patient stated that she had not but states that she is a cutter. Denies any suicidal or homicidal ideation. States that she does have a counselor she sees. Vitals/I&O's: Vital Signs Temp Pulse Resp BP Pulse Ox 36.3 C L 86 16 95/44 L 97 06/29/17 02:34 06/29/17 07:28 06/29/17 07:28 06/29/17 02:34 06/29/17 07:28 Oxygen Flow Rate 5 Oxygen Delivery Method Bi-pap Weight: 82.4 kg Body Mass Index (BMI) 30.2 Intake and Output for Last 24 Hours 06/27/17 06/28/17 06/29/17 23:59 23:59 23:59 Intake Total 240 / 240 460 / 460 Balance 240 / 240 460 / 460 General: Alert, Cooperative, No apparent distress HEENT: Atraumatic, Normocephalic Neck: No Nodes, Thyroid Normal Size and Texture Lungs: Diminished, Wheezes Cardiovascular: Regular rate, Regular Rhythm, Normal S1, Normal S2 Abdomen: Bowel Sounds Present, Soft, Non Tender, Non-Distended, No Hepato-splenomegaly Extremities: No edema, No Calf Tenderness Skin: - - Superficial horizontal scabs left upper extremity. No surrounding erythema. No induration. Musculoskeletal: No Tenderness to Palpation of Joints or Extremities, No Muscle Wasting Psych/Mental Status: Normal Affect, Appropriate Laboratory Results 06/29/17 06:00: WBC 4.6, RBC 3.60 L, Hgb 11.2 L, Hct 34.6 L, MCV 96.1, MCH 31.1, MCHC 32.4, RDW 13.6, RDW Differential 45.7 H, Plt Count 157, MPV 9.2, Immature Gran % (Auto) 0.700, Neut % (Auto) 48.1, Lymph % (Auto) 36.9, [place] % (Auto) 13.4 H, Eos % (Auto) 0.0, Baso % (Auto) 0.9, Absolute Neuts (auto) 2.2, Absolute Lymphs (auto) 1.68, Total Counted Not Reportable, Differential Comment SCANNED 06/29/17 06:00: Sodium 138, Potassium 3.7, Chloride 103, Carbon Dioxide 26.0, Anion Gap 9, BUN 19 H, Creatinine 0.40 L, Estim Creat Clear Calc 49.12, Est GFR (MDRD) Af Amer 205, Est GFR (MDRD) Non-Af 169, BUN/Creatinine Ratio 47.6 H, Glucose 121 H, Calcium 7.7 L, Total Bilirubin 0.30, AST 50 H, ALT 31, Alkaline Phosphatase 58, Total Protein 6.4, Albumin 2.5 L, Globulin 3.9, Albumin/Globulin Ratio 0.6 L Current Medications Acetaminophen (Tylenol) 650 mg PO Q6H PRN PRN PRN Reason: Mild Pain (scale 0-3)/T>100.7 Last Admin: 06/29/17 08:20 Dose: 650 mg Albuterol Sulfate (Ventolin Aerosols) 2.5 mg INHALATION Q2H PRN PRN PRN Reason: SOB &/OR WHEEZING Albuterol/Ipratropium (Duoneb) 3 ml INHALATION Q4H.RT [facility] Last Admin: 06/29/17 07:28 Dose: 3 ml Alendronate Sodium (Fosamax) 70 mg PO Q7D@0700 [facility] Benzonatate (Tessalon Perle) 100 mg PO 4X/DAY PRN PRN PRN Reason: COUGH Bisacodyl (Dulcolax) 10 mg PO DAILY PRN PRN PRN Reason: Constipation Calcium/Vitamin D (Os-Nolan 500mg + D) [facility] Last Admin: 06/29/17 08:03 Dose: 1 tablet Enoxaparin Sodium (Lovenox) 40 mg SC DAILY@1000 [facility] Last Admin: 06/28/17 13:19 Dose: 40 mg Famotidine (Pepcid) 20 mg PO BID [facility] Last Admin: 06/28/17 22:58 Dose: 20 mg Gabapentin (Neurontin) [facility] Last Admin: 06/29/17 08:03 Dose: 300 mg Levofloxacin (Levaquin) 500 mg in 100 mls @ 100 mls/hr IV Q24 [facility] Magnesium Hydroxide (Milk Of Magnesia) 30 ml PO DAILY PRN PRN PRN Reason: Constipation Methadone HCl () 10 mg PO 4X/DAY [facility] Last Admin: 06/28/17 22:58 Dose: 10 mg Methylprednisolone (Solu-Medrol) 60 mg IV Q6 [facility] Last Admin: 06/29/17 05:10 Dose: 60 mg Mirtazapine (Remeron) 15 mg PO QHS [facility] Last Admin: 06/28/17 22:58 Dose: 15 mg Ondansetron HCl (Zofran) 4 mg IV Q8H PRN PRN PRN Reason: Nausea Phenobarbital (Phenobarbital) 32.4 mg PO BID [facility] Last Admin: 06/28/17 22:58 Dose: 32.4 mg Phenytoin Sodium (Dilantin) 100 mg PO 4X/DAY [facility] Last Admin: 06/28/17 22:58 Dose: 100 mg Pramipexole Dihydrochloride (Mirapex) 1 mg PO DAILY [facility] Last Admin: 06/28/17 12:04 Dose: 1 mg Pravastatin Sodium (Pravachol) 40 mg PO DAILY@2200 [facility] Last Admin: 06/28/17 22:59 Dose: 40 mg Sodium Chloride () 5 - 30 ml IV UD PRN PRN Reason: SALINE FLUSH Last Admin: 06/29/17 05:10 Dose: 10 ml Temazepam (Restoril) 30 mg PO HS [facility] Last Admin: 06/28/17 22:58 Dose: 30 mg Tolterodine Tartrate (Detrol La) 4 mg PO DAILY [facility] Last Admin: 06/28/17 13:19 Dose: 4 mg Assessment/Plan Active and Suspected Problems Acute exacerbation of chronic obstructive airways disease (Acute) 1. Acute COPD exacerbation Improved overall. Continue with bronchodilators, Solu-Medrol. Consult pulmonology 2. Underlying psych disorder Unclear the patient specifically diagnosed with but does see a counselor. Denies any suicidal nor homicidal ideation 3. DVT prophylaxis with Lovenox Code Visit Inpatient E&M: 49567 Subs Hosp L2
--- NOTE | 2017-06-29 08:59 | PN_ITS ---
Patient Problems: Active and Suspected Problems Acute exacerbation of chronic obstructive airways disease (Acute) Subjective: Patient breathing better. Tolerating being off the BiPAP for peers time. I noted some linear scabs on left upper arm and asked that the patient had had an accident. Patient stated that she had not but states that she is a cutter. Denies any suicidal or homicidal ideation. States that she does have a counselor she sees. Vitals/I&O's: Vital Signs Temp Pulse Resp BP Pulse Ox 36.3 C L 86 16 95/44 L 97 06/29/17 02:34 06/29/17 07:28 06/29/17 07:28 06/29/17 02:34 06/29/17 07:28 Oxygen Flow Rate 5 Oxygen Delivery Method Bi-pap Weight: 82.4 kg Body Mass Index (BMI) 30.2 Intake and Output for Last 24 Hours 06/27/17 06/28/17 06/29/17 23:59 23:59 23:59 Intake Total 240 / 240 460 / 460 Balance 240 / 240 460 / 460 General: Alert, Cooperative, No apparent distress HEENT: Atraumatic, Normocephalic Neck: No Nodes, Thyroid Normal Size and Texture Lungs: Diminished, Wheezes Cardiovascular: Regular rate, Regular Rhythm, Normal S1, Normal S2 Abdomen: Bowel Sounds Present, Soft, Non Tender, Non-Distended, No Hepato- splenomegaly Extremities: No edema, No Calf Tenderness Skin: - - Superficial horizontal scabs left upper extremity. No surrounding erythema. No induration. Musculoskeletal: No Tenderness to Palpation of Joints or Extremities, No Muscle Wasting Psych/Mental Status: Normal Affect, Appropriate Laboratory Results 06/29/17 06:00: WBC 4.6, RBC 3.60 L, Hgb 11.2 L, Hct 34.6 L, MCV 96.1, MCH 31.1 , MCHC 32.4, RDW 13.6, RDW Differential 45.7 H, Plt Count 157, MPV 9.2, Immature Gran % (Auto) 0.700, Neut % (Auto) 48.1, Lymph % (Auto) 36.9, [place] % ( Auto) 13.4 H, Eos % (Auto) 0.0, Baso % (Auto) 0.9, Absolute Neuts (auto) 2.2, Absolute Lymphs (auto) 1.68, Total Counted Not Reportable, Differential Comment SCANNED 06/29/17 06:00: Sodium 138, Potassium 3.7, Chloride 103, Carbon Dioxide 26.0, Anion Gap 9, BUN 19 H, Creatinine 0.40 L, Estim Creat Clear Calc 49.12, Est GFR (MDRD) Af Amer 205, Est GFR (MDRD) Non-Af 169, BUN/Creatinine Ratio 47.6 H, Glucose 121 H, Calcium 7.7 L, Total Bilirubin 0.30, AST 50 H, ALT 31, Alkaline Phosphatase 58, Total Protein 6.4, Albumin 2.5 L, Globulin 3.9, Albumin/ Globulin Ratio 0.6 L Current Medications Acetaminophen (Tylenol) 650 mg PO Q6H PRN PRN PRN Reason: Mild Pain (scale 0-3)/T>100.7 Last Admin: 06/29/17 08:20 Dose: 650 mg Albuterol Sulfate (Ventolin Aerosols) 2.5 mg INHALATION Q2H PRN PRN PRN Reason: SOB &/OR WHEEZING Albuterol/Ipratropium (Duoneb) 3 ml INHALATION Q4H.RT [facility] Last Admin: 06/29/17 07:28 Dose: 3 ml Alendronate Sodium (Fosamax) 70 mg PO Q7D@0700 [facility] Benzonatate (Tessalon Perle) 100 mg PO 4X/DAY PRN PRN PRN Reason: COUGH Bisacodyl (Dulcolax) 10 mg PO DAILY PRN PRN PRN Reason: Constipation Calcium/Vitamin D (Os-Nolan 500mg + D) [facility] Last Admin: 06/29/17 08:03 Dose: 1 tablet Enoxaparin Sodium (Lovenox) 40 mg SC DAILY@1000 [facility] Last Admin: 06/28/17 13:19 Dose: 40 mg Famotidine (Pepcid) 20 mg PO BID [facility] Last Admin: 06/28/17 22:58 Dose: 20 mg Gabapentin ([facility]urontin) [facility] Last Admin: 06/29/17 08:03 Dose: 300 mg Levofloxacin (Levaquin) 500 mg in 100 mls @ 100 mls/hr IV Q24 [facility] Magnesium Hydroxide (Milk Of Magnesia) 30 ml PO DAILY PRN PRN PRN Reason: Constipation Methadone HCl () 10 mg PO 4X/DAY [facility] Last Admin: 06/28/17 22:58 Dose: 10 mg Methylprednisolone (Solu-Medrol) 60 mg IV Q6 [facility] Last Admin: 06/29/17 05:10 Dose: 60 mg Mirtazapine (Remeron) 15 mg PO QHS [facility] Last Admin: 06/28/17 22:58 Dose: 15 mg Ondansetron HCl (Zofran) 4 mg IV Q8H PRN PRN PRN Reason: Nausea Phenobarbital (Phenobarbital) 32.4 mg PO BID [facility] Last Admin: 06/28/17 22:58 Dose: 32.4 mg Phenytoin Sodium (Dilantin) 100 mg PO 4X/DAY [facility] Last Admin: 06/28/17 22:58 Dose: 100 mg Pramipexole Dihydrochloride (Mirapex) 1 mg PO DAILY [facility] Last Admin: 06/28/17 12:04 Dose: 1 mg Pravastatin Sodium (Pravachol) 40 mg PO DAILY@2200 [facility] Last Admin: 06/28/17 22:59 Dose: 40 mg Sodium Chloride () 5 - 30 ml IV UD PRN PRN Reason: SALINE FLUSH Last Admin: 06/29/17 05:10 Dose: 10 ml Temazepam (Restoril) 30 mg PO HS [facility] Last Admin: 06/28/17 22:58 Dose: 30 mg Tolterodine Tartrate (Detrol La) 4 mg PO DAILY [facility] Last Admin: 06/28/17 13:19 Dose: 4 mg Assessment/Plan Active and Suspected Problems Acute exacerbation of chronic obstructive airways disease (Acute) 1. Acute COPD exacerbation Improved overall. Continue with bronchodilators, Solu-Medrol. Consult pulmonology 2. Underlying psych disorder Unclear the patient specifically diagnosed with but does see a counselor. Denies any suicidal nor homicidal ideation 3. DVT prophylaxis with Lovenox Code Visit Inpatient E&M: 14143 Subs Hosp L2
--- NOTE | 2017-06-29 09:49 | CASEMGMT ---
SW received a referral that patient cuts herself to relieve stress. SW introduced self to patient. She was wearing bi-pap so it was difficult for her to talk. SW asked her about this information and she confirmed it. SW started to talk with her about [facility], and she told SW she goes to [facility] already and sees Dr Pendleton. SW asked if he prescribes her meds and she said she is not on medications. She said he is aware of her cutting and they work on this. SW asked patient if she would like SW to stop by a little later when she is not wearing bi-pap and she said that was fine. SW to follow up with patient. Michela CARTER MSW
--- NOTE | 2017-06-29 10:28 | CASEMGMT ---
GRAHAM received a call from Laury at [facility]. She asked about patient. GRAHAM told her about patient cutting herself when she gets stressed. GRAHAM told her patient said she sees a counselor already, but not sure who, as the one she gave is not at [facility]. Laury did not know the answer to this question. She gave SW a fax number to send d/c instructions when ready. (phone: [phone] and fax: [phone]) Michela CARTER MSW
[2017-06-29] MEDS: Enoxaparin 40 MG/0.4 ML Syringe SC (10:48)
[2017-06-29] MEDS: Pramipexole Di-HCl 1 MG Tablet PO (10:49)
[2017-06-29] MEDS: Phenytoin Na 100 MG Capsule PO ×4 (10:49→22:26)
[2017-06-29] MEDS: Famotidine 20 MG Tablet PO ×2 (10:49→22:27)
[2017-06-29] MEDS: Methadone 10 MG Tablet PO ×4 (10:49→22:42)
[2017-06-29] MEDS: Tolterodine Tartrate 4 MG CAP.SA PO (13:14)
[2017-06-29] MEDS: Pravastatin 40 MG Tablet PO (22:26)
[2017-06-29] MEDS: Mirtazapine 15 MG Tablet PO (22:29)
[2017-06-29 22:41] LABS: Bedside Glucose 230 mg/dL (70-110)
[2017-06-29] MEDS: Temazepam 15 MG Capsule 30 MG PO (22:42)
[2017-06-29] MEDS: Latanoprost 0.005% 1 Bottle 1 DRP EACH EYE (23:47)
[2017-06-30] VITALS (16 sets, daily range): BP systolic 99–113; BP diastolic 42–66; PULSE 67–98; RESP 12–21; TEMP 36.8–37.1; O2SAT 94–98
[2017-06-30] MEDS: Ipratropium/Albuterol Sulfate 3 ML AMPUL.NEB INHALATION ×5 (03:44→18:39)
[2017-06-30] MEDS: MethylPREDNISolone 125 MG/2 ML Vial 60 MG IV ×3 (05:57→17:38)
[2017-06-30 07:22] LABS: Anion Gap 6 (5-15); BUN 20 mg/dL (7-18); BUN/Creat Ratio 44.4 RATIO (10-20); Calcium,Total 8.1 mg/dL (8.5-10.1); Chloride 106 mmol/L (98-107); Creatinine, Serum 0.45 mg/dL (0.55-1.02); EST Glomerular Filtration Rate 147 mL/min (>60); Est Glom Filt Rate - Afr Amer 178 mL/min (>60); Estimated Creatinine Clearance 49.12 ml/min; Glucose 149 mg/dL (70-110); Magnesium 2.2 mg/dL (1.8-2.4); Phosphorus 2.5 mg/dL (2.5-4.9); Potassium 3.9 mmol/L (3.5-5.1); Sodium Level 141 mmol/L (136-145)
[2017-06-30 07:45] LABS: Absolute Lymphocyte Count 1.75 X10^3/ul (0.83-4.51); Absolute Neutrophil Count 2.5 X10^3/uL (2.0-7.7); Basophil# 0.03 X10^3/uL; Basophil% 0.6 % (0-1); Hematocrit 34.9 % (37-47); Hemoglobin 11.1 g/dl (12.0-15.0); Lymphocyte # 1.75 X10^3/ul (4.0); Lymphocyte % 35.9 % (19-41); Mean Corp Hgb Conc 31.8 g/gl (32-36); Mean Corpuscular Hgb 30.6 pg (27.0-32.0); Mean Corpuscular Volume 96.1 fL (81-99); Mean Platelet Vol. 9.3 fl (6.2-12.0); Monocyte# 0.52 X10^3/uL; Monocyte% 10.7 % (0-10); Neutrophil # 2.51 X10^3/uL (2.7-7.7); Neutrophil % 51.6 % (47-70); Platelet Count 176 K/mm3 (150-450); RBC Distribution Width CV 13.4 % (11.6-14.6); RBC Distribution Width SD 44.9 fl (35.1-43.9); Red Blood Count 3.63 M/mm3 (4.2-5.4); White Blood Count 4.9 K/mm3 (4.4-11.0)
[2017-06-30 07:46] LABS: Differential Indicated SCAN CRITERIA MET; POSITIVE COUNT NO; POSITIVE DIFFERENTIAL NO; POSITIVE MORPHOLOGY YES
[2017-06-30] MEDS: Calcium Carb/Vitamin D 1 TABLET Tablet PO (08:23)
[2017-06-30] MEDS: Gabapentin 300 MG Capsule PO ×2 (08:23→17:37)
--- NOTE | 2017-06-30 08:39 | PCM.PROGNOTE ---
Patient Problems: Active and Suspected Problems Acute exacerbation of chronic obstructive airways disease (Acute) Subjective: Patient was seen and examined, she is lying in bed and appears to be in no acute distress. Patient reports subjective improvement in her breathing. She is still wheezing and has a mostly nonproductive cough. Complains of a mildly sore throat today. She appears much more relaxed today. She is not tolerating the BiPAP as much is she was initially, she wore briefly overnight and has been maintained on her baseline of 4 L per nasal cannula. - Physical Exam General: Alert, Oriented x3, Cooperative, No apparent distress, Well developed, Well nourished, - - no conversational dyspnea HEENT: Atraumatic, Normocephalic Oral: Moist Mucosa, No Gingival or Mucosal Lesions/ Ulcerations, - - edentulous. No oropharyngeal erythema Neck: Supple, No Nodes, Trachea Midline Lungs: No rhonchi, No rales, Diminished, - - Global wheezing but has improved Cardiovascular: Regular rate, Regular Rhythm, Normal S1, Normal S2 Abdomen: Bowel Sounds Present, Soft, Non Tender Extremities: No clubbing, No cyanosis, No edema Skin: - - Unchanged from previous Musculoskeletal: No Tenderness to Palpation of Joints or Extremities Lymphatic: No Cervical, Supraclavicular, or Inguinal Adenopathy Neurological: Neuro grossly intact Psych/Mental Status: Alert and oriented to time, place, person, mood and affect Vital Signs Temp Pulse Resp BP Pulse Ox 98.8 F 86 18 113/63 97 06/30/17 08:27 06/30/17 08:27 06/30/17 08:27 06/30/17 08:27 06/30/17 08:27 Oxygen Flow Rate 3 Oxygen Delivery Method Nasal Cannula Weight: 181 lb 10.574 oz Body Mass Index (BMI) 30.2 Intake and Output for Last 24 Hours 06/28/17 06/29/17 06/30/17 23:59 23:59 23:59 Intake Total 240 / 240 1682 / 1682 200 / 200 Balance 240 / 240 1682 / 1682 200 / 200 Microbiology Past 72 Hours 06/29/17 10:30 Respiratory Panel (PCR) - Final Mucosa - Nasopharyngeal Laboratory Tests Past 24 Hrs 06/30/17 06/30/17 06:50 06:50 WBC 4.9 RBC 3.63 L Hgb 11.1 L Hct 34.9 L MCV 96.1 MCH 30.6 MCHC 31.8 L RDW 13.4 RDW Differential 44.9 H Plt Count 176 MPV 9.3 Immature Gran % (Auto) 1.200 H Neut % (Auto) 51.6 Lymph % (Auto) 35.9 Faulk % (Auto) 10.7 H Eos % (Auto) 0.0 Baso % (Auto) 0.6 Absolute Neuts (auto) 2.5 Absolute Lymphs (auto) 1.75 Total Counted Not Reportable Differential Comment COMMENT Sodium 141 Potassium 3.9 Chloride 106 Carbon Dioxide 29.0 Anion Gap 6 BUN 20 H Creatinine 0.45 L Estim Creat Clear Calc 49.12 Est GFR (MDRD) Af Amer 178 Est GFR (MDRD) Non-Af 147 BUN/Creatinine Ratio 44.4 H Glucose 149 H Calcium 8.1 L Phosphorus 2.5 Magnesium 2.2 POC Glucose 06/29/17 22:23 POC Glucose 230 H Assessment/Plan Active and Suspected Problems Acute exacerbation of chronic obstructive airways disease (Acute) RECOMMENDATIONS 1. Wean oxygen supplementation to keep saturations 88-92%. 2. Encourage incentive spirometer 3. Increase activity as tolerated 4. Continue aerosols 5. Likely okay to transition to oral steroids tomorrow 6. Watch for delirium given steroids/psych issues 7. Walking oximetry prior to discharge 8. Patient may follow-up in the pulmonary clinic in 2 weeks if she so desires, she should have baseline pulmonary function tests and a repeat PSG as outpatient IMPRESSIONS 1. Acute exacerbation of COPD, presumed Patient with diffuse wheezing, tachypnea, shortness of breath. BiPAP was initially very helpful, now patient is feeling better and does not wish to wear this anymore. Current home inhalers include Advair and Ventolin as needed. She follows with Dr. 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 She has never had any lung function tests in the past. She is on baseline 4 L of oxygen continuously at home. Her chest x-ray was reviewed, did show hyperinflation but no acute cardiopulmonary process. I suspect the patient does have COPD, likely advanced, however this has not been confirmed with PFTs. Patient gave conflicting reports on her lung disease and steroid use. Respiratory panel normal, sputum culture is pending. Plan: Continue Duonebs, add PRN albuterol aerosol. No leukocytosis and no purulent sputum, so would hold off on antibiotics for now. Had a temp of 100.5 on arrival but currently afebrile. Likely okay to transition to oral steroid tomorrow. Encourage incentive spirometer and increase activity as tolerated. Wean oxygen supplementation to keep saturations 88-92%. The patient should have a walking oximetry prior to discharge. The patient may follow-up in the pulmonary clinic if she desires, she should have baseline pulmonary function tests performed to evaluate lung function. Anticipate she will be ready for discharge tomorrow, 07/01. 2. Acute on chronic respiratory failure with hypoxia and hypercapnia Again, patient is on baseline 4 L of oxygen,and has been for over 10 years per her report. There is no pulmonary function tests to review or walking oximetry. Her last CT of the chest in 2012 reported hyperinflation of the lungs consistent with COPD, no pleural abnormality. There was mild intrahepatic biliary duct dilatation. There was some evidence of early bronchiectasis at that time. This can be followed as an outpatient. 3. Obstructive sleep apnea Noncompliant with CPAP at home. Patient is on several sedating medications at home which could complicate her CHUY and cause more hypoxia. She reports she wears 4 L when sleeping. It has been a while since her last sleep study, she is unsure when. There is no record in our system. 4. Tobacco abuse/depression/insomnia/hypertension/lumbar disc disease/seizure disorder/chronic pain/RLS/psychiatric disorder Complicates care, management, recovery, and prognosis. Patient smoked about 4 PPD for 45 years (180 pk year history), recently decreased to about a 1/2 to 1 PPD. She notes she never smokes with her oxygen on. She is not currently interested in smoking cessation, however she has thought about it. Smoking cessation was encouraged. There is some concern for delirium the administration of steroids, given the patient's history of psych issues. This note was generated with [employer] dictation software. It may contain incorrect words, spelling, and punctuation that were not noted in checking the note before signing.
[2017-06-30] MEDS: Phenytoin Na 100 MG Capsule PO ×4 (10:11→21:29)
[2017-06-30] MEDS: Famotidine 20 MG Tablet PO ×2 (10:11→21:29)
[2017-06-30] MEDS: Enoxaparin 40 MG/0.4 ML Syringe SC (10:11)
[2017-06-30] MEDS: Methadone 10 MG Tablet PO ×4 (10:11→21:29)
[2017-06-30] MEDS: 0.9% NaCl Peripheral Flush Adult/Peds IV ×2 (10:11→17:37)
[2017-06-30] MEDS: Tolterodine Tartrate 4 MG CAP.SA PO (10:11)
[2017-06-30] MEDS: Pramipexole Di-HCl 1 MG Tablet PO (10:12)
--- NOTE | 2017-06-30 14:00 | PN_ITS ---
Patient Problems: Active and Suspected Problems Acute exacerbation of chronic obstructive airways disease (Acute) Subjective: Being on BiPAP during the day. Vitals/I&O's: Vital Signs Temp Pulse Resp BP Pulse Ox 37.1 C 69 20 H 113/63 97 06/30/17 08:27 06/30/17 11:24 06/30/17 11:16 06/30/17 08:27 06/30/17 08:27 Oxygen Flow Rate 3 Oxygen Delivery Method Nasal Cannula Weight: 82.4 kg Body Mass Index (BMI) 30.2 Intake and Output for Last 24 Hours 06/28/17 06/29/17 06/30/17 23:59 23:59 23:59 Intake Total 240 / 240 1682 / 1682 680 / 680 Balance 240 / 240 1682 / 1682 680 / 680 General: Alert, Cooperative, No apparent distress HEENT: Atraumatic, Normocephalic Neck: No Nodes, Thyroid Normal Size and Texture Lungs: Diminished, Wheezes Cardiovascular: Regular rate, Regular Rhythm, Normal S1, Normal S2, No murmurs Abdomen: Bowel Sounds Present, Soft, Non Tender, Non-Distended Extremities: No edema, No Calf Tenderness Skin: No rashes, No breakdown Musculoskeletal: No Tenderness to Palpation of Joints or Extremities Psych/Mental Status: Normal Affect, Appropriate Microbiology Past 72 Hours 06/29/17 15:50 Sputum, Expectorated/Coughed Gram Stain - Final 06/29/17 15:50 Sputum, Expectorated/Coughed Respiratory Culture - Preliminary 06/29/17 10:30 Mucosa - Nasopharyngeal Respiratory Panel (PCR) - Final Laboratory Results 06/29/17 22:23: POC Glucose 230 H 06/30/17 06:50: WBC 4.9, RBC 3.63 L, Hgb 11.1 L, Hct 34.9 L, MCV 96.1, MCH 30.6 , MCHC 31.8 L, RDW 13.4, RDW Differential 44.9 H, Plt Count 176, MPV 9.3, Immature Gran % (Auto) 1.200 H, Neut % (Auto) 51.6, Lymph % (Auto) 35.9, [place] % (Auto) 10.7 H, Eos % (Auto) 0.0, Baso % (Auto) 0.6, Absolute Neuts (auto) 2.5, Absolute Lymphs (auto) 1.75, Total Counted Not Reportable, Differential Comment COMMENT 06/30/17 06:50: Sodium 141, Potassium 3.9, Chloride 106, Carbon Dioxide 29.0, Anion Gap 6, BUN 20 H, Creatinine 0.45 L, Estim Creat Clear Calc 49.12, Est GFR (MDRD) Af Amer 178, Est GFR (MDRD) Non-Af 147, BUN/Creatinine Ratio 44.4 H, Glucose 149 H, Calcium 8.1 L, Phosphorus 2.5, Magnesium 2.2 Current Medications Acetaminophen (Tylenol) 650 mg PO Q6H PRN PRN PRN Reason: Mild Pain (scale 0-3)/T>100.7 Last Admin: 06/29/17 08:20 Dose: 650 mg Albuterol Sulfate (Ventolin Aerosols) 2.5 mg INHALATION Q2H PRN PRN PRN Reason: SOB &/OR WHEEZING Albuterol/Ipratropium (Duoneb) 3 ml INHALATION Q4H.RT [facility] Last Admin: 06/30/17 10:38 Dose: 3 ml Alendronate Sodium (Fosamax) 70 mg PO Q7D@0700 [facility] Benzonatate (Tessalon Perle) 100 mg PO 4X/DAY PRN PRN PRN Reason: COUGH Bisacodyl (Dulcolax) 10 mg PO DAILY PRN PRN PRN Reason: Constipation Calcium/Vitamin D (Os-Nolan [facility]mg + D[facility] Last Admin: 06/30/17 08:23 Dose: 1 tablet Enoxaparin Sodium (Lovenox) 40 mg SC DAILY@1000 [facility] Last Admin: 06/30/17 10:11 Dose: 40 mg Famotidine (Pepcid) 20 mg PO BID [facility] Last Admin: 06/30/17 10:11 Dose: 20 mg Gabap[facility]in) [facility] Last Admin: 06/30/17 08:23 Dose: 300 mg Levofloxacin (Levaquin) 500 mg in 100 mls @ 100 mls/hr IV Q24 [facility] Last Admin: 06/30/17 10:11 Dose: 100 mls/hr Latanoprost (Xalatan Opthalmic) 1 drop EACH EYE QHS [facility] Last Admin: 06/29/17 23:47 Dose: 1 drop Magnesium Hydroxide (Milk Of Magnesia) 30 ml PO DAILY PRN PRN PRN Reason: Constipation Methadone HCl () 10 mg PO 4X/DAY [facility] Last Admin: 06/30/17 13:23 Dose: 10 mg Methylprednisolone (Solu-Medrol) 60 mg IV Q6 [facility] Last Admin: 06/30/17 13:23 Dose: 60 mg Mirtazapine (Remeron) 15 mg PO QHS [facility] Last Admin: 06/29/17 22:29 Dose: 15 mg Ondansetron HCl (Zofran) 4 mg IV Q8H PRN PRN PRN Reason: Nausea Phenobarbital (Phenobarbital) 32.4 mg PO BID [facility] Last Admin: 06/30/17 10:11 Dose: 32.4 mg Phenytoin Sodium (Dilantin) 100 mg PO 4X/DAY [facility] Last Admin: 06/30/17 13:23 Dose: 100 mg Pramipexole Dihydrochloride (Mirapex) 1 mg PO DAILY [facility] Last Admin: 06/30/17 10:12 Dose: 1 mg Pravastatin Sodium (Pravachol) 40 mg PO DAILY@2200 [facility] Last Admin: 06/29/17 22:26 Dose: 40 mg Sodium Chloride () 5 - 30 ml IV UD PRN PRN Reason: SALINE FLUSH Last Admin: 06/30/17 10:11 Dose: 10 ml Temazepam (Restoril) 30 mg PO HS [facility] Last Admin: 06/29/17 22:42 Dose: 30 mg Tolterodine Tartrate (Detrol La) 4 mg PO DAILY [facility] Last Admin: 06/30/17 10:11 Dose: 4 mg Assessment/Plan Active and Suspected Problems Acute exacerbation of chronic obstructive airways disease (Acute) 1. Acute COPD exacerbation Improved overall. Continue with bronchodilators, Solu-Medrol. Pulmonary following. Patient follow-up with pulmonology clinic 2 weeks after discharge. Compliance will be a concern. We will be able to transition patient over to oral steroids tomorrow. 2. Underlying psych disorder Unclear the patient specifically diagnosed with but does see a counselor. Denies any suicidal nor homicidal ideation 3. DVT prophylaxis with Lovenox Code Visit Inpatient E&M: 87949 [facility] Hosp L2
[2017-06-30] MEDS: Pravastatin 40 MG Tablet PO (21:29)
[2017-06-30] MEDS: Mirtazapine 15 MG Tablet PO (21:29)
[2017-06-30] MEDS: Temazepam 15 MG Capsule 30 MG PO (21:33)
[2017-06-30] MEDS: Latanoprost 0.005% 1 Bottle 1 DRP EACH EYE (21:39)
--- NOTE | 2017-06-30 22:30 | CPS ---
Pt refusing bipap at this time
[2017-07-01] VITALS (17 sets, daily range): BP systolic 104–133; BP diastolic 52–77; PULSE 72–94; RESP 12–22; TEMP 36.6–37.4; O2SAT 92–99
[2017-07-01] MEDS: MethylPREDNISolone 125 MG/2 ML Vial 60 MG IV ×2 (01:00→06:30)
[2017-07-01] MEDS: Ipratropium/Albuterol Sulfate 3 ML AMPUL.NEB INHALATION ×6 (02:46→23:09)
[2017-07-01] MEDS: 0.9% NaCl Peripheral Flush Adult/Peds IV ×2 (06:30→09:06)
[2017-07-01] MEDS: Alendronate Sodium 70 MG Tablet PO (06:30)
[2017-07-01] MEDS: Gabapentin 300 MG Capsule PO ×2 (08:24→17:18)
[2017-07-01] MEDS: Calcium Carb/Vitamin D 1 TABLET Tablet PO (08:24)
--- NOTE | 2017-07-01 08:24 | PN_ITS ---
Patient Problems: Active and Suspected Problems Acute respiratory failure with hypercapnia (Acute) Acute exacerbation of chronic obstructive airways disease (Acute) Subjective: Patient was seen and examined. She is lying in bed in no acute distress. Reports she has been coughing quite a bit this morning, nonproductive. Still endorsing dyspnea on exertion when ambulating with her walker to the bathroom. Her appetite is good. She has been refusing BiPAP. Patient remains hemodynamically stable and afebrile, she is saturating well on her baseline oxygen requirements. - Physical Exam General: Alert, Oriented x3, Cooperative, No apparent distress, Well developed, Well nourished HEENT: Atraumatic, Normocephalic Oral: Moist Mucosa, No Gingival or Mucosal Lesions/ Ulcerations, - - Edentulous Neck: Supple, No Nodes, Trachea Midline Lungs: No rales, - - Diminished with expiratory wheezing t/o, improved. Scattered rhonchi Cardiovascular: Regular rate, Regular Rhythm, Normal S1, Normal S2 Abdomen: Bowel Sounds Present, Soft, Non Tender, Non-Distended, Obese Extremities: No clubbing, No cyanosis, No edema Skin: No rashes, No breakdown Musculoskeletal: No Tenderness to Palpation of Joints or Extremities Lymphatic: No Cervical, Supraclavicular, or Inguinal Adenopathy Neurological: Cranial nerves II-XII grossly intact, Neuro grossly intact, Motor Exam 5/5 strength throughout Psych/Mental Status: Impulsive, Alert and oriented to time, place, person, mood and affect Vital Signs Temp Pulse Resp BP Pulse Ox 99.1 F 94 16 109/52 L 92 07/01/17 02:58 07/01/17 07:27 07/01/17 06:50 07/01/17 02:58 07/01/17 06:50 Oxygen Flow Rate 3 Oxygen Delivery Method Nasal Cannula Weight: 181 lb 10.574 oz Body Mass Index (BMI) 30.2 Intake and Output for Last 24 Hours 06/29/17 06/30/17 07/01/17 23:59 23:59 23:59 Intake Total 1682 / 1682 920 / 920 240 / 240 Balance 1682 / 1682 920 / 920 240 / 240 Microbiology Past 72 Hours 06/29/17 15:50 Gram Stain - Final Sputum, Expectorated/Coughed Respiratory Culture - Preliminary 06/29/17 10:30 Respiratory Panel (PCR) - Final Mucosa - Nasopharyngeal Laboratory Tests Past 24 Hrs 06/30/17 06:50 Total Counted Not Reportable Differential Comment COMMENT Assessment/Plan Active and Suspected Problems Acute respiratory failure with hypercapnia (Acute) Acute exacerbation of chronic obstructive airways disease (Acute) RECOMMENDATIONS 1. Wean oxygen supplementation to keep saturations 88-92%. 2. Encourage incentive spirometer and Acapella 3. Increase activity as tolerated 4. Continue aerosols 5. Continue steroids, 2 week taper at discharge 6. Watch for delirium given steroids/psych issues 7. Walking oximetry prior to discharge 8. 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 Okay from pulmonary standpoint for discharge IMPRESSIONS 1. Acute exacerbation of COPD, presumed Patient with diffuse wheezing, tachypnea, shortness of breath. BiPAP was initially very helpful, now patient is feeling better and does not wish to wear this anymore. Current home inhalers include Advair and Ventolin as needed. She follows with Dr. Veliz, does not have a nitroglycerin distributor. She has never had any lung function tests in the past. She is on baseline 4 L of oxygen continuously at home. Her chest x-ray was reviewed, did show hyperinflation but no acute cardiopulmonary process. I suspect the patient does have COPD, likely advanced, however this has not been confirmed with PFTs. Patient gave conflicting reports on her lung disease and steroid use, apparently she now acknowledges she has COPD. Respiratory panel normal, sputum culture was not acceptable. Plan: Continue Duonebs, add PRN albuterol aerosol. No leukocytosis and no purulent sputum, so would hold off on antibiotics for now. Remains afebrile. Continue oral steroid. Encourage incentive spirometer Q1H and Acapella BID and PRN. Increase activity as tolerated. Wean oxygen supplementation to keep saturations 88-92%. The patient should have a walking oximetry prior to discharge to clarify O2 requirements with exertion. The patient may follow-up in the pulmonary clinic if she desires, she should have baseline pulmonary function tests performed to evaluate lung function. Okay from pulmonary standpoint to be discharged. 2. Acute on chronic respiratory failure with hypoxia and hypercapnia Again, patient is on baseline 4 L of oxygen,and has been for over 10 years per her report. There is no pulmonary function tests to review or walking oximetry. Her last CT of the chest in 2012 reported hyperinflation of the lungs consistent with COPD, no pleural abnormality. There was mild intrahepatic biliary duct dilatation. There was some evidence of early bronchiectasis at that time. This can be followed as an outpatient. Acapella should be encouraged. 3. Obstructive sleep apnea Noncompliant with CPAP at home. Patient is on several sedating medications at home which could complicate her CHUY and cause more hypoxia. She reports she wears 4 L when sleeping. It has been a while since her last sleep study, she is unsure when. There is no record in our system. This should be repeated as an outpatient if she is willing. 4. Tobacco abuse/depression/insomnia/hypertension/lumbar disc disease/seizure disorder/chronic pain/RLS/psychiatric disorder Complicates care, management, recovery, and prognosis. Patient smoked about 4 PPD for 45 years (180 pk year history), recently decreased to about a 1/2 to 1 PPD. She notes she never smokes with her oxygen on. She is not currently interested in smoking cessation, however she has thought about it. Smoking cessation was encouraged. There is some concern for delirium the administration of steroids, given the patient's history of psych issues. This note was generated with [employer] dictation software. It may contain incorrect words, spelling, and punctuation that were not noted in checking the note before signing.
--- NOTE | 2017-07-01 08:37 | PCM.PN.HOSP ---
Patient Problems: Active and Suspected Problems Acute respiratory failure with hypercapnia (Acute) Acute exacerbation of chronic obstructive airways disease (Acute) Subjective: Breathing better. Vitals/I&O's: Vital Signs Temp Pulse Resp BP Pulse Ox 37.3 C 94 16 109/52 L 92 07/01/17 02:58 07/01/17 07:27 07/01/17 06:50 07/01/17 02:58 07/01/17 06:50 Oxygen Flow Rate 3 Oxygen Delivery Method Nasal Cannula Weight: 82.4 kg Body Mass Index (BMI) 30.2 Intake and Output for Last 24 Hours 06/29/17 06/30/17 07/01/17 23:59 23:59 23:59 Intake Total 1682 / 1682 920 / 920 240 / 240 Balance 1682 / 1682 920 / 920 240 / 240 General: Alert, Cooperative, No apparent distress HEENT: Atraumatic, Normocephalic Neck: No Nodes, Thyroid Normal Size and Texture Lungs: Diminished, Wheezes Cardiovascular: Regular rate, Regular Rhythm, Normal S1, Normal S2, No murmurs Abdomen: Bowel Sounds Present, Soft, Non Tender, Non-Distended Extremities: No clubbing, No edema, No Calf Tenderness Psych/Mental Status: Normal Affect, Appropriate Microbiology Past 72 Hours 06/29/17 15:50 Sputum, Expectorated/Coughed Gram Stain - Final 06/29/17 15:50 Sputum, Expectorated/Coughed Respiratory Culture - Preliminary 06/29/17 10:30 Mucosa - Nasopharyngeal Respiratory Panel (PCR) - Final Current Medications Acetaminophen (Tylenol) 650 mg PO Q6H PRN PRN PRN Reason: Mild Pain (scale 0-3)/T>100.7 Last Admin: 06/29/17 08:20 Dose: 650 mg Albuterol Sulfate (Ventolin Aerosols) 2.5 mg INHALATION Q2H PRN PRN PRN Reason: SOB &/OR WHEEZING Albuterol/Ipratropium (Duoneb) 3 ml INHALATION Q4H.RT [facility] Last Admin: 07/01/17 06:50 Dose: 3 ml Alendronate Sodium (Fosamax) 70 mg PO Q7D@0700 [facility] Last Admin: 07/01/17 06:30 Dose: 70 mg Benzonatate (Tessalon Perle) 100 mg PO 4X/DAY PRN PRN PRN Reason: COUGH Bisacodyl (Dulcolax) 10 mg PO DAILY PRN PRN PRN Reason: Constipation Calcium/Vitamin D (Os-Nolan 500mg + D) [facility] Last Admin: 07/01/17 08:24 Dose: 1 tablet Enoxaparin Sodium (Lovenox) 40 mg SC DAILY@1000 [facility] Last Admin: 06/30/17 10:11 Dose: 40 mg Famotidine (Pepcid) 20 mg PO BID [facility] Last Admin: 06/30/17 21:29 Dose: 20 mg Gabapentin (Neurontin) [facility] Last Admin: 07/01/17 08:24 Dose: 300 mg Levofloxacin (Levaquin) 500 mg in 100 mls @ 100 mls/hr IV Q24 [facility] Last Admin: 06/30/17 10:11 Dose: 100 mls/hr Latanoprost (Xalatan Opthalmic) 1 drop EACH EYE QHS [facility] Last Admin: 06/30/17 21:39 Dose: 1 drop Magnesium Hydroxide (Milk Of Magnesia) 30 ml PO DAILY PRN PRN PRN Reason: Constipation Methadone HCl () 10 mg PO 4X/DAY [facility] Last Admin: 06/30/17 21:29 Dose: 10 mg Methylprednisolone (Solu-Medrol) 60 mg IV Q6 [facility] Last Admin: 07/01/17 06:30 Dose: 60 mg Mirtazapine (Remeron) 15 mg PO QHS [facility] Last Admin: 06/30/17 21:29 Dose: 15 mg Ondansetron HCl (Zofran) 4 mg IV Q8H PRN PRN PRN Reason: Nausea Phenobarbital (Phenobarbital) 32.4 mg PO BID [facility] Last Admin: 06/30/17 21:33 Dose: 32.4 mg Phenytoin Sodium (Dilantin) 100 mg PO 4X/DAY [facility] Last Admin: 06/30/17 21:29 Dose: 100 mg Pramipexole Dihydrochloride (Mirapex) 1 mg PO DAILY [facility] Last Admin: 06/30/17 10:12 Dose: 1 mg Pravastatin Sodium (Pravachol) 40 mg PO DAILY@2200 [facility] Last Admin: 06/30/17 21:29 Dose: 40 mg Sodium Chloride () 5 - 30 ml IV UD PRN PRN Reason: SALINE FLUSH Last Admin: 07/01/17 06:30 Dose: 10 ml Temazepam (Restoril) 30 mg PO HS [facility] Last Admin: 06/30/17 21:33 Dose: 30 mg Tolterodine Tartrate (Detrol La) 4 mg PO DAILY [facility] Last Admin: 06/30/17 10:11 Dose: 4 mg Assessment/Plan Active and Suspected Problems Acute respiratory failure with hypercapnia (Acute) Acute exacerbation of chronic obstructive airways disease (Acute) 1. Acute COPD exacerbation Improved overall. Continue with bronchodilators, Solu-Medrol. Pulmonary following. Patient follow-up with pulmonology clinic 2 weeks after discharge. Compliance will be a concern. We will be able to transition patient over to oral steroids tomorrow. 2. Acute hypercapnic respiratory failure Secondary to above Improved. Tolerating being off the BiPAP. 3. Underlying psych disorder Unclear the patient specifically diagnosed with but does see a counselor. Denies any suicidal nor homicidal ideation 4. DVT prophylaxis with Lovenox Code Visit Inpatient E&M: 95933 [facility] Hosp L2
--- NOTE | 2017-07-01 08:43 | PN_ITS ---
Patient Problems: Active and Suspected Problems Acute respiratory failure with hypercapnia (Acute) Acute exacerbation of chronic obstructive airways disease (Acute) Subjective: Breathing better. Vitals/I&O's: Vital Signs Temp Pulse Resp BP Pulse Ox 37.3 C 94 16 109/52 L 92 07/01/17 02:58 07/01/17 07:27 07/01/17 06:50 07/01/17 02:58 07/01/17 06:50 Oxygen Flow Rate 3 Oxygen Delivery Method Nasal Cannula Weight: 82.4 kg Body Mass Index (BMI) 30.2 Intake and Output for Last 24 Hours 06/29/17 06/30/17 07/01/17 23:59 23:59 23:59 Intake Total 1682 / 1682 920 / 920 240 / 240 Balance 1682 / 1682 920 / 920 240 / 240 General: Alert, Cooperative, No apparent distress HEENT: Atraumatic, Normocephalic Neck: No Nodes, Thyroid Normal Size and Texture Lungs: Diminished, Wheezes Cardiovascular: Regular rate, Regular Rhythm, Normal S1, Normal S2, No murmurs Abdomen: Bowel Sounds Present, Soft, Non Tender, Non-Distended Extremities: No clubbing, No edema, No Calf Tenderness Psych/Mental Status: Normal Affect, Appropriate Microbiology Past 72 Hours 06/29/17 15:50 Sputum, Expectorated/Coughed Gram Stain - Final 06/29/17 15:50 Sputum, Expectorated/Coughed Respiratory Culture - Preliminary 06/29/17 10:30 Mucosa - Nasopharyngeal Respiratory Panel (PCR) - Final Current Medications Acetaminophen (Tylenol) 650 mg PO Q6H PRN PRN PRN Reason: Mild Pain (scale 0-3)/T>100.7 Last Admin: 06/29/17 08:20 Dose: 650 mg Albuterol Sulfate (Ventolin Aerosols) 2.5 mg INHALATION Q2H PRN PRN PRN Reason: SOB &/OR WHEEZING Albuterol/Ipratropium (Duoneb) 3 ml INHALATION Q4H.RT CHEN Last Admin: 07/01/17 06:50 Dose: 3 ml Alendronate Sodium (Fosamax) 70 mg PO Q7D@0700 [facility] Last Admin: 07/01/17 06:30 Dose: 70 mg Benzonatate (Tessalon Perle) 100 mg PO 4X/DAY PRN PRN PRN Reason: COUGH Bisacodyl (Dulcolax) 10 mg PO DAILY PRN PRN PRN Reason: Constipation Calcium/Vitamin D (Os-Nolan 500mg + D) [facility] Last Admin: 07/01/17 08:24 Dose: 1 tablet Enoxaparin Sodium (Lovenox) 40 mg SC DAILY@1000 [facility] Last Admin: 06/30/17 10:11 Dose: 40 mg Famotidine (Pepcid) 20 mg PO BID [facility] Last Admin: 06/30/17 21:29 Dose: 20 mg Gabapentin (Neurontin) [facility] Last Admin: 07/01/17 08:24 Dose: 300 mg Levofloxacin (Levaquin) 500 mg in 100 mls @ 100 mls/hr IV Q24 [facility] Last Admin: 06/30/17 10:11 Dose: 100 mls/hr Latanoprost (Xalatan Opthalmic) 1 drop EACH EYE QHS [facility] Last Admin: 06/30/17 21:39 Dose: 1 drop Magnesium Hydroxide (Milk Of Magnesia) 30 ml PO DAILY PRN PRN PRN Reason: Constipation Methadone HCl () 10 mg PO 4X/DAY [facility] Last Admin: 06/30/17 21:29 Dose: 10 mg Methylprednisolone (Solu-Medrol) 60 mg IV Q6 [facility] Last Admin: 07/01/17 06:30 Dose: 60 mg Mirtazapine (Remeron) 15 mg PO QHS [facility] Last Admin: 06/30/17 21:29 Dose: 15 mg Ondansetron HCl (Zofran) 4 mg IV Q8H PRN PRN PRN Reason: Nausea Phenobarbital (Phenobarbital) 32.4 mg PO BID [facility] Last Admin: 06/30/17 21:33 Dose: 32.4 mg Phenytoin Sodium (Dilantin) 100 mg PO 4X/DAY [facility] Last Admin: 06/30/17 21:29 Dose: 100 mg Pramipexole Dihydrochloride (Mirapex) 1 mg PO DAILY [facility] Last Admin: 06/30/17 10:12 Dose: 1 mg Pravastatin Sodium (Pravachol) 40 mg PO DAILY@2200 [facility] Last Admin: 06/30/17 21:29 Dose: 40 mg Sodium Chloride () 5 - 30 ml IV UD PRN PRN Reason: SALINE FLUSH Last Admin: 07/01/17 06:30 Dose: 10 ml Temazepam (Restoril) 30 mg PO HS [facility] Last Admin: 06/30/17 21:33 Dose: 30 mg Tolterodine Tartrate (Detrol La) 4 mg PO DAILY [facility] Last Admin: 06/30/17 10:11 Dose: 4 mg Assessment/Plan Active and Suspected Problems Acute respiratory failure with hypercapnia (Acute) Acute exacerbation of chronic obstructive airways disease (Acute) 1. Acute COPD exacerbation Improved overall. Continue with bronchodilators, Solu-Medrol. Pulmonary following. Patient follow-up with pulmonology clinic 2 weeks after discharge. Compliance will be a concern. We will be able to transition patient over to oral steroids tomorrow. 2. Acute hypercapnic respiratory failure Secondary to above Improved. Tolerating being off the BiPAP. 3. Underlying psych disorder Unclear the patient specifically diagnosed with but does see a counselor. Denies any suicidal nor homicidal ideation 4. DVT prophylaxis with Lovenox Code Visit Inpatient E&M: 81426 Subs Hosp L2
[2017-07-01] MEDS: Enoxaparin 40 MG/0.4 ML Syringe SC (09:05)
[2017-07-01] MEDS: Famotidine 20 MG Tablet PO ×2 (09:05→21:01)
[2017-07-01] MEDS: Methadone 10 MG Tablet PO ×4 (09:05→21:10)
[2017-07-01] MEDS: Tolterodine Tartrate 4 MG CAP.SA PO (09:05)
[2017-07-01] MEDS: Pramipexole Di-HCl 1 MG Tablet PO (09:05)
[2017-07-01] MEDS: Phenytoin Na 100 MG Capsule PO ×4 (09:05→21:00)
[2017-07-01] MEDS: Mirtazapine 15 MG Tablet PO (21:02)
[2017-07-01] MEDS: Pravastatin 40 MG Tablet PO (21:02)
[2017-07-01] MEDS: Latanoprost 0.005% 1 Bottle 1 DRP EACH EYE (21:04)
[2017-07-01] MEDS: Temazepam 15 MG Capsule 30 MG PO (21:12)
--- NOTE | 2017-07-01 21:47 | CPS ---
PT REFUSING BIPAP TONIGHT.
[2017-07-02] VITALS (10 sets, daily range): BP systolic 99–120; BP diastolic 54–64; PULSE 76–94; RESP 12–20; TEMP 36.9–37.2; O2SAT 85–96
[2017-07-02] MEDS: Ipratropium/Albuterol Sulfate 3 ML AMPUL.NEB INHALATION ×3 (03:50→10:30)
[2017-07-02] MEDS: levoFLOXacin 500 MG Tablet PO (05:00)
--- NOTE | 2017-07-02 06:49 | PCM.PROGNOTE ---
Subjective: The patient was seen and examined at the bedside this morning. Events from the last 24 hours have been reviewed. The patient is currently afebrile, hemodynamically stable and maintaining appropriate oxygen saturations on 3 L/min via nasal cannula. The patient's only complaint this morning is that of back pain, for which she is requesting to be medicated. Objective: The patient's most recent lab work, culture data and imaging studies have all been personally reviewed. Respiratory viral panel was negative. Expectorated sputum culture revealed normal respiratory zulma. - Physical Exam General: Alert, Oriented x3, Cooperative, No apparent distress HEENT: Atraumatic, PERRLA, Normocephalic Oral: No Gingival or Mucosal Lesions/ Ulcerations Neck: Supple, No Nodes, Trachea Midline Lungs: No rhonchi, No wheeze, No rales, Diminished Cardiovascular: Regular rate, Regular Rhythm, Normal S1, Normal S2, No murmurs Abdomen: Bowel Sounds Present, Soft, Non Tender Extremities: No clubbing, No cyanosis, No edema Skin: No rashes, No breakdown Musculoskeletal: No Tenderness to Palpation of Joints or Extremities Lymphatic: No Cervical, Supraclavicular, or Inguinal Adenopathy Neurological: Neuro grossly intact Psych/Mental Status: Normal Affect, Appropriate Vital Signs Temp Pulse Resp BP Pulse Ox 98.7 F 90 18 119/62 92 07/02/17 06:26 07/02/17 06:43 07/02/17 06:43 07/02/17 06:26 07/02/17 06:43 Oxygen Flow Rate 4 Oxygen Delivery Method Nasal Cannula Weight: 181 lb 10.574 oz Body Mass Index (BMI) 30.2 Intake and Output for Last 24 Hours 06/30/17 07/01/17 07/02/17 23:59 23:59 23:59 Intake Total 920 / 920 1082 / 1082 300 / 300 Balance 920 / 920 1082 / 1082 300 / 300 Microbiology Past 72 Hours 06/29/17 15:50 Gram Stain - Final Sputum, Expectorated/Coughed Respiratory Culture - Final 06/29/17 10:30 Respiratory Panel (PCR) - Final Mucosa - Nasopharyngeal Clinical Impression(s) from Imaging Studies Chest X-Ray 06/28/17 02:48 IMPRESSION: No acute cardiopulmonary disease. Electronically Signed: Danilo Rodriguez MD at 4:48 EST , Service support , Assessment/Plan RECOMMENDATIONS 1. Wean oxygen supplementation to keep saturations 88-92%. 2. Encourage incentive spirometer and Acapella 3. Increase activity as tolerated 4. Continue aerosols 5. Continue steroids with taper at discharge 6. Walking oximetry prior to discharge 7. Patient may follow-up in the pulmonary clinic in 2 weeks with GARDENING SUPERVISOR if she so desires. She should have baseline pulmonary function tests and a possible repeat PSG as outpatient. 8. Okay from pulmonary standpoint for discharge IMPRESSIONS 1. Acute exacerbation of COPD, presumed Continue scheduled aerosol regimen. Patient does not have a stereotyper helper at baseline, but does require significant nasal cannula oxygen at baseline. Patient would benefit from outpatient pulmonary function tests. Patient's prednisone therapy can be weaned over the next 12-14 days. Patient should have a walking oximetry prior to discharge. Okay to discharge from a pulmonary perspective. 2. Acute on chronic respiratory failure with hypoxia and hypercapnia Again, patient is on baseline 4 L of oxygen,and has been for over 10 years per her report. There is no pulmonary function tests to review or walking oximetry. Her last CT of the chest in 2012 reported hyperinflation of the lungs consistent with COPD, no pleural abnormality. There was mild intrahepatic biliary duct dilatation. There was some evidence of early bronchiectasis at that time. This can be followed up upon as an outpatient. Acapella should be encouraged. 3. Obstructive sleep apnea Noncompliant with CPAP at home. Patient is on several sedating medications at home which could complicate her CHUY and cause more hypoxia. She reports she wears 4 L when sleeping. Patient is not open to reinitiation of CPAP therapy and has refused BiPAP therapy since admission, so pursuit of a PSG as an outpatient is likely not worthwhile. 4. Tobacco abuse/depression/insomnia/hypertension/lumbar disc disease/seizure disorder/chronic pain/RLS/psychiatric disorder Complicates care, management, recovery, and prognosis. Smoking cessation is advisable. Continue home medications as indicated. This note was generated with [employer] software. It may contain incorrect words, spelling, and punctuation that were not noted in checking the note before signing. Will sign off at this time from a pulmonary perspective. Please call with any additional questions. Code Visit Inpatient E&M: 02076 Subs Hosp L2
--- NOTE | 2017-07-02 06:55 | PN_ITS ---
Subjective: The patient was seen and examined at the bedside this morning. Events from the last 24 hours have been reviewed. The patient is currently afebrile, hemodynamically stable and maintaining appropriate oxygen saturations on 3 L/ min via nasal cannula. The patient's only complaint this morning is that of back pain, for which she is requesting to be medicated. Objective: The patient's most recent lab work, culture data and imaging studies have all been personally reviewed. Respiratory viral panel was negative. Expectorated sputum culture revealed normal respiratory zulma. - Physical Exam General: Alert, Oriented x3, Cooperative, No apparent distress HEENT: Atraumatic, PERRLA, Normocephalic Oral: No Gingival or Mucosal Lesions/ Ulcerations Neck: Supple, No Nodes, Trachea Midline Lungs: No rhonchi, No wheeze, No rales, Diminished Cardiovascular: Regular rate, Regular Rhythm, Normal S1, Normal S2, No murmurs Abdomen: Bowel Sounds Present, Soft, Non Tender Extremities: No clubbing, No cyanosis, No edema Skin: No rashes, No breakdown Musculoskeletal: No Tenderness to Palpation of Joints or Extremities Lymphatic: No Cervical, Supraclavicular, or Inguinal Adenopathy Neurological: Neuro grossly intact Psych/Mental Status: Normal Affect, Appropriate Vital Signs Temp Pulse Resp BP Pulse Ox 98.7 F 90 18 119/62 92 07/02/17 06:26 07/02/17 06:43 07/02/17 06:43 07/02/17 06:26 07/02/17 06:43 Oxygen Flow Rate 4 Oxygen Delivery Method Nasal Cannula Weight: 181 lb 10.574 oz Body Mass Index (BMI) 30.2 Intake and Output for Last 24 Hours 06/30/17 07/01/17 07/02/17 23:59 23:59 23:59 Intake Total 920 / 920 1082 / 1082 300 / 300 Balance 920 / 920 1082 / 1082 300 / 300 Microbiology Past 72 Hours 06/29/17 15:50 Gram Stain - Final Sputum, Expectorated/Coughed Respiratory Culture - Final 06/29/17 10:30 Respiratory Panel (PCR) - Final Mucosa - Nasopharyngeal Clinical Impression(s) from Imaging Studies Chest X-Ray 06/28/17 02:48 IMPRESSION: No acute cardiopulmonary disease. Electronically Signed: Danilo Rodriguez MD at 4:48 EST , Service support , Assessment/Plan RECOMMENDATIONS 1. Wean oxygen supplementation to keep saturations 88-92%. 2. Encourage incentive spirometer and Acapella 3. Increase activity as tolerated 4. Continue aerosols 5. Continue steroids with taper at discharge 6. Walking oximetry prior to discharge 7. Patient may follow-up in the pulmonary clinic in 2 weeks with KNOCKOUT WORKER if she so desires. She should have baseline pulmonary function tests and a possible repeat PSG as outpatient. 8. Okay from pulmonary standpoint for discharge IMPRESSIONS 1. Acute exacerbation of COPD, presumed Continue scheduled aerosol regimen. Patient does not have a civil engineer in training at baseline, but does require significant nasal cannula oxygen at baseline. Patient would benefit from outpatient pulmonary function tests. Patient's prednisone therapy can be weaned over the next 12-14 days. Patient should have a walking oximetry prior to discharge. Okay to discharge from a pulmonary perspective. 2. Acute on chronic respiratory failure with hypoxia and hypercapnia Again, patient is on baseline 4 L of oxygen,and has been for over 10 years per her report. There is no pulmonary function tests to review or walking oximetry. Her last CT of the chest in 2012 reported hyperinflation of the lungs consistent with COPD, no pleural abnormality. There was mild intrahepatic biliary duct dilatation. There was some evidence of early bronchiectasis at that time. This can be followed up upon as an outpatient. Acapella should be encouraged. 3. Obstructive sleep apnea Noncompliant with CPAP at home. Patient is on several sedating medications at home which could complicate her CHUY and cause more hypoxia. She reports she wears 4 L when sleeping. Patient is not open to reinitiation of CPAP therapy and has refused BiPAP therapy since admission, so pursuit of a PSG as an outpatient is likely not worthwhile. 4. Tobacco abuse/depression/insomnia/hypertension/lumbar disc disease/seizure disorder/chronic pain/RLS/psychiatric disorder Complicates care, management, recovery, and prognosis. Smoking cessation is advisable. Continue home medications as indicated. This note was generated with [employer] software. It may contain incorrect words, spelling, and punctuation that were not noted in checking the note before signing. Will sign off at this time from a pulmonary perspective. Please call with any additional questions. Code Visit Inpatient E&M: 01326 Subs Hosp L2
[2017-07-02] MEDS: Calcium Carb/Vitamin D 1 TABLET Tablet PO (08:21)
[2017-07-02] MEDS: Gabapentin 300 MG Capsule PO (08:21)
[2017-07-02] MEDS: Tolterodine Tartrate 4 MG CAP.SA PO (08:22)
[2017-07-02] MEDS: Enoxaparin 40 MG/0.4 ML Syringe SC (08:22)
[2017-07-02] MEDS: Phenytoin Na 100 MG Capsule PO (08:22)
[2017-07-02] MEDS: Methadone 10 MG Tablet PO (08:22)
[2017-07-02] MEDS: Pramipexole Di-HCl 1 MG Tablet PO (08:23)
[2017-07-02] MEDS: Famotidine 20 MG Tablet PO (08:23)
--- NOTE | 2017-07-02 09:22 | CASEMGMT ---
Addendum entered by Michela Rosas 07/02/17 09:52: SW was able to talk with patient. GRAHAM asked her if she will need transport home and she said her son will take her. She will need portable O2 tanks. She gets her O2 through [employer]. SW asked her about home PT/OT, and nursing and she said she didn't care as she has an aide 5 days a week. GRAHAM told her SW will set up home PT/OT and nursing for her. GRAHAM will also contact [facility] [place] see if they can bring her a portable tank. GRAHAM also asked her about her counselor and she said it is Leobardo Price at [facility]. GRAHAM verified he is a Psychologist at [facility]. Michela LEWIS Original Note: GRAHAM attempted to talk with patient about home health and transport home at d/c, however she would not wake up and talk with GRAHAM. She would just mumble answers to some of GRAHAM's questions. GRAHAM will stop back. Michela LEWIS
--- NOTE | 2017-07-02 09:55 | PCM.PN.HOSP ---
Patient Problems: Active and Suspected Problems Acute respiratory failure with hypercapnia (Acute) Acute exacerbation of chronic obstructive airways disease (Acute) Subjective: Breathing better but still is having paroxysms of cough. Patient states that she has a condenser at home but that does not not have portable tanks. Vitals/I&O's: Vital Signs Temp Pulse Resp BP Pulse Ox 37.1 C 91 18 119/62 92 07/02/17 06:26 07/02/17 06:59 07/02/17 06:43 07/02/17 06:26 07/02/17 06:43 Oxygen Flow Rate 3 Oxygen Delivery Method Nasal Cannula Weight: 82.4 kg Body Mass Index (BMI) 30.2 Intake and Output for Last 24 Hours 06/30/17 07/01/17 07/02/17 23:59 23:59 23:59 Intake Total 920 / 920 1082 / 1082 300 / 300 Balance 920 / 920 1082 / 1082 300 / 300 General: Alert, Cooperative, No apparent distress HEENT: Atraumatic, Normocephalic Neck: No Nodes, Thyroid Normal Size and Texture Lungs: Clear to auscultation, No rhonchi, No wheeze, Diminished Cardiovascular: Regular rate, Regular Rhythm, Normal S1, Normal S2 Abdomen: Bowel Sounds Present, Soft, Non Tender, Non-Distended, Obese Microbiology Past 72 Hours 06/29/17 15:50 Sputum, Expectorated/Coughed Gram Stain - Final 06/29/17 15:50 Sputum, Expectorated/Coughed Respiratory Culture - Final 06/29/17 10:30 Mucosa - Nasopharyngeal Respiratory Panel (PCR) - Final Current Medications Acetaminophen (Tylenol) 650 mg PO Q6H PRN PRN PRN Reason: Mild Pain (scale 0-3)/T>100.7 Last Admin: 06/29/17 08:20 Dose: 650 mg Albuterol Sulfate (Ventolin Aerosols) 2.5 mg INHALATION Q2H PRN PRN PRN Reason: SOB &/OR WHEEZING Albuterol/Ipratropium (Duoneb) 3 ml INHALATION Q4H.RT [facility] Last Admin: 07/02/17 06:42 Dose: 3 ml Alendronate Sodium (Fosamax) 70 mg PO Q7D@0700 [facility] Last Admin: 07/01/17 06:30 Dose: 70 mg Benzonatate (Tessalon Perle) 100 mg PO 4X/DAY PRN PRN PRN Reason: COUGH Bisacodyl (Dulcolax) 10 mg PO DAILY PRN PRN PRN Reason: Constipation Calcium/Vitamin D (Os-Nolan 500mg + D) [facility] Last Admin: 07/02/17 08:21 Dose: 1 tablet Enoxaparin Sodium (Lovenox) 40 mg SC DAILY@1000 [facility] Last Admin: 07/02/17 08:22 Dose: 40 mg Famotidine (Pepcid) 20 mg PO BID [facility] Last Admin: 07/02/17 08:23 Dose: 20 mg Gabapentin (Neurontin) [facility] Last Admin: 07/02/17 08:21 Dose: 300 mg Latanoprost (Xalatan Opthalmic) 1 drop EACH EYE QHS [facility] Last Admin: 07/01/17 21:04 Dose: 1 drop Levofloxacin (Levaquin) 500 mg PO DAILY@0600 [facility] Last Admin: 07/02/17 05:00 Dose: 500 mg Magnesium Hydroxide (Milk Of Magnesia) 30 ml PO DAILY PRN PRN PRN Reason: Constipation Methadone HCl () 10 mg PO 4X/DAY [facility] Last Admin: 07/02/17 08:22 Dose: 10 mg Mirtazapine (Remeron) 15 mg PO QHS [facility] Last Admin: 07/01/17 21:02 Dose: 15 mg Nutritional Formula (Lactose Free) (Ensure Enlive) 120 ml PO 4X/DAY [facility] Last Admin: 07/02/17 08:22 Dose: Not Given Ondansetron HCl (Zofran) 4 mg IV Q8H PRN PRN PRN Reason: Nausea Phenobarbital (Phenobarbital) 32.4 mg PO BID [facility] Last Admin: 07/02/17 08:23 Dose: 32.4 mg Phenytoin Sodium (Dilantin) 100 mg PO 4X/DAY [facility] Last Admin: 07/02/17 08:22 Dose: 100 mg Pramipexole Dihydrochloride (Mirapex) 1 mg PO DAILY [facility] Last Admin: 07/02/17 08:23 Dose: 1 mg Pravastatin Sodium (Pravachol) 40 mg PO DAILY@2200 [facility] Last Admin: 07/01/17 21:02 Dose: 40 mg Prednisone (Prednisone) 40 mg PO DAILY@0800 [facility] Last Admin: 07/02/17 08:21 Dose: 40 mg Sodium Chloride () 5 - 30 ml IV UD PRN PRN Reason: SALINE FLUSH Last Admin: 07/01/17 09:06 Dose: 10 ml Temazepam (Restoril) 30 mg PO HS [facility] Last Admin: 07/01/17 21:12 Dose: 30 mg Tolterodine Tartrate (Detrol La) 4 mg PO DAILY [facility] Last Admin: 07/02/17 08:22 Dose: 4 mg Assessment/Plan Active and Suspected Problems Acute respiratory failure with hypercapnia (Acute) Acute exacerbation of chronic obstructive airways disease (Acute) 1. Acute COPD exacerbation Improved overall. Continue with bronchodilators, Solu-Medrol. Pulmonary following. Patient follow-up with pulmonology clinic 2 weeks after discharge. Compliance will be a concern. Continue with prednisone through the 17th complete 5 day course. 2. Acute hypercapnic respiratory failure Secondary to above Improved. Tolerating being off the BiPAP. Patient has oxygen at home but will need portable tanks. Discussed the employment case manager will get the facility. 3. Underlying psych disorder Unclear the patient specifically diagnosed with but does see a counselor. Denies any suicidal nor homicidal ideation 4. Debility: Therapy recommended skilled therapy. Patient declined sniff. Patient is open to home health care. 5. DVT prophylaxis with Lovenox Discharge home.
--- NOTE | 2017-07-02 09:58 | PN_ITS ---
Patient Problems: Active and Suspected Problems Acute respiratory failure with hypercapnia (Acute) Acute exacerbation of chronic obstructive airways disease (Acute) Subjective: Breathing better but still is having paroxysms of cough. Patient states that she has a condenser at home but that does not not have portable tanks. Vitals/I&O's: Vital Signs Temp Pulse Resp BP Pulse Ox 37.1 C 91 18 119/62 92 07/02/17 06:26 07/02/17 06:59 07/02/17 06:43 07/02/17 06:26 07/02/17 06:43 Oxygen Flow Rate 3 Oxygen Delivery Method Nasal Cannula Weight: 82.4 kg Body Mass Index (BMI) 30.2 Intake and Output for Last 24 Hours 06/30/17 07/01/17 07/02/17 23:59 23:59 23:59 Intake Total 920 / 920 1082 / 1082 300 / 300 Balance 920 / 920 1082 / 1082 300 / 300 General: Alert, Cooperative, No apparent distress HEENT: Atraumatic, Normocephalic Neck: No Nodes, Thyroid Normal Size and Texture Lungs: Clear to auscultation, No rhonchi, No wheeze, Diminished Cardiovascular: Regular rate, Regular Rhythm, Normal S1, Normal S2 Abdomen: Bowel Sounds Present, Soft, Non Tender, Non-Distended, Obese Microbiology Past 72 Hours 06/29/17 15:50 Sputum, Expectorated/Coughed Gram Stain - Final 06/29/17 15:50 Sputum, Expectorated/Coughed Respiratory Culture - Final 06/29/17 10:30 Mucosa - Nasopharyngeal Respiratory Panel (PCR) - Final Current Medications Acetaminophen (Tylenol) 650 mg PO Q6H PRN PRN PRN Reason: Mild Pain (scale 0-3)/T>100.7 Last Admin: 06/29/17 08:20 Dose: 650 mg Albuterol Sulfate (Ventolin Aerosols) 2.5 mg INHALATION Q2H PRN PRN PRN Reason: SOB &/OR WHEEZING Albuterol/Ipratropium (Duoneb) 3 ml INHALATION Q4H.RT CHEN Last Admin: 07/02/17 06:42 Dose: 3 ml Alendronate Sodium (Fosamax) 70 mg PO Q7D@0700 [facility] Last Admin: 07/01/17 06:30 Dose: 70 mg Benzonatate (Tessalon Perle) 100 mg PO 4X/DAY PRN PRN PRN Reason: COUGH Bisacodyl (Dulcolax) 10 mg PO DAILY PRN PRN PRN Reason: Constipation Calcium/Vitamin D (Os-Nolan 500mg + D) [facility] Admin: 07/02/17 08:21 Dose: 1 tablet Enoxaparin Sodium (Lovenox) 40 mg SC DAILY@1000 [facility] Last Admin: 07/02/17 08:22 Dose: 40 mg Famotidine (Pepcid) 20 mg PO BID [facility] Last Admin: 07/02/17 08:23 Dose: 20 mg Gabapentin (Neurontin) [facility] Last Admin: 07/02/17 08:21 Dose: 300 mg Latanoprost (Xalatan Opthalmic) 1 drop EACH EYE QHS [facility] Last Admin: 07/01/17 21:04 Dose: 1 drop Levofloxacin (Levaquin) 500 mg PO DAILY@0600 [facility] Last Admin: 07/02/17 05:00 Dose: 500 mg Magnesium Hydroxide (Milk Of Magnesia) 30 ml PO DAILY PRN PRN PRN Reason: Constipation Methadone HCl () 10 mg PO 4X/DAY [facility] Last Admin: 07/02/17 08:22 Dose: 10 mg Mirtazapine (Remeron) 15 mg PO QHS [facility] Last Admin: 07/01/17 21:02 Dose: 15 mg Nutritional Formula (Lactose Free) (Ensure Enlive) 120 ml PO 4X/DAY [facility] Last Admin: 07/02/17 08:22 Dose: Not Given Ondansetron HCl (Zofran) 4 mg IV Q8H PRN PRN PRN Reason: Nausea Phenobarbital (Phenobarbital) 32.4 mg PO BID [facility] Last Admin: 07/02/17 08:23 Dose: 32.4 mg Phenytoin Sodium (Dilantin) 100 mg PO 4X/DAY [facility] Last Admin: 07/02/17 08:22 Dose: 100 mg Pramipexole Dihydrochloride (Mirapex) 1 mg PO DAILY [facility] Last Admin: 07/02/17 08:23 Dose: 1 mg Pravastatin Sodium (Pravachol) 40 mg PO DAILY@2200 [facility] Last Admin: 07/01/17 21:02 Dose: 40 mg Prednisone (Prednisone) 40 mg PO DAILY@0800 [facility] Last Admin: 07/02/17 08:21 Dose: 40 mg Sodium Chloride () 5 - 30 ml IV UD PRN PRN Reason: SALINE FLUSH Last Admin: 07/01/17 09:06 Dose: 10 ml Temazepam (Restoril) 30 mg PO HS [facility] Last Admin: 07/01/17 21:12 Dose: 30 mg Tolterodine Tartrate (Detrol La) 4 mg PO DAILY [facility] Last Admin: 07/02/17 08:22 Dose: 4 mg Assessment/Plan Active and Suspected Problems Acute respiratory failure with hypercapnia (Acute) Acute exacerbation of chronic obstructive airways disease (Acute) 1. Acute COPD exacerbation Improved overall. Continue with bronchodilators, Solu-Medrol. Pulmonary following. Patient follow-up with pulmonology clinic 2 weeks after discharge. Compliance will be a concern. Continue with prednisone through the 17th complete 5 day course. 2. Acute hypercapnic respiratory failure Secondary to above Improved. Tolerating being off the BiPAP. Patient has oxygen at home but will need portable tanks. Discussed the community case manager will get the facility. 3. Underlying psych disorder Unclear the patient specifically diagnosed with but does see a counselor. Denies any suicidal nor homicidal ideation 4. Debility: Therapy recommended skilled therapy. Patient declined sniff. Patient is open to home health care. 5. DVT prophylaxis with Lovenox Discharge home.
--- NOTE | 2017-07-02 10:03 | PCM.DC ---
- Discharge Diagnoses Current Active Problems: Current Active and Chronic Problems Acute respiratory failure with hypercapnia (Acute) Acute exacerbation of chronic obstructive airways disease (Acute) You will use the following diet at home:: No restrictions Your food should be the consistency of: Regular Your liquids should be the consistency of: Regular/Thin Discharge Activity: Return to Normal Activity Call your doctor if you observe: Fever of 101 or Higher, Shortness of breath Instructions: What is COPD?, Discharge Instructions: COPD, COPD: Using Inhalers Additional Instructions: oxygen 2liters continuous. Allergies/Adverse Reactions: Allergies Penicillins Allergy (Verified 06/28/17 02:38) Anaphylaxis codeine Adverse Reaction (Verified 06/28/17 02:38) Nausea Medications to take at Discharge Albuterol Aerosols [Ventolin Aerosols] 2.5 mg INHALATION Q4H PRN 05/12/16 Albuterol IH (ProAir) [Proair Hfa] 2 puff INHALATION BID 05/12/16 Alendronate Sodium [Fosamax] 70 mg PO Q7D@0700 05/12/16 Calcium Carbonate/Vitamin D3 [Oyster Shell 500-Vit D3 200 Tb] 1 each PO DAILY 05/12/16 Etodolac 400 mg PO BID 05/12/16 Fluticasone/Salmeterol [Advair 250/50 Mcg Diskus] 2 puff INHALATION BID 05/12/16 Gabapentin [Neurontin] 300 mg PO BIDCM 05/12/16 Methadone HCl 10 mg PO 4X/DAY 05/12/16 Phenytoin Na [Dilantin] 100 mg PO 4X/DAY 05/12/16 Pravastatin [Pravachol] 40 mg PO DAILY 05/12/16 Ropinirole HCl [Requip] 2 mg PO DAILY 05/12/16 Tolterodine Tartrate [Detrol LA] 4 mg PO DAILY 05/12/16 Bisacodyl [Dulcolax] 10 mg PO DAILY PRN PRN #0 tablet 06/25/16 Famotidine [Pepcid] 20 mg PO BID tablet 06/25/16 Mirtazapine [Remeron] 15 mg PO QHS tablet 06/25/16 Phenobarbital 30 mg PO BID #20 tablet 06/25/16 Benzonatate [Tessalon Perle] 100 mg PO 4X/DAY PRN PRN #30 cap 06/24/17 Oseltamivir Phosphate [Tamiflu] 75 mg PO BID #9 cap 06/24/17 Temazepam [Restoril] 30 mg PO QHS 06/24/17 Levofloxacin [Levaquin] 500 mg PO DAILY@0600 #4 tab 07/02/17 Prednisone 4 tab PO DAILY #16 tab 07/02/17 The following prescriptions were given: Levofloxacin [Levaquin] 500 mg PO DAILY@0600 #4 tab Prednisone 4 tab PO DAILY #16 tab Primary Care Physician: Patel Veliz Chi, MD [Primary Care Provider] - Within 1 Week Proposed Discharge Date: 07/02/17
--- NOTE | 2017-07-02 10:05 | PCM.DC.SUM ---
Discharge Date and Diagnosis - Problem List Patient Problems: Active and Suspected Problems Acute respiratory failure with hypercapnia (Acute) Acute exacerbation of chronic obstructive airways disease (Acute) Date of Admission: 06/28/17 Date of Discharge: 07/02/17 - Primary Discharge Diagnosis Active and Suspected Problems Acute respiratory failure with hypercapnia (Acute) Acute exacerbation of chronic obstructive airways disease (Acute) 1. Acute COPD exacerbation Improved overall. Continue with bronchodilators, Solu-Medrol. Pulmonary following. Patient follow-up with pulmonology clinic 2 weeks after discharge. Compliance will be a concern. Continue with prednisone through the 17th complete 5 day course. 2. Acute hypercapnic respiratory failure Secondary to above Improved. Tolerating being off the BiPAP. Patient has oxygen at home but will need portable tanks. Discussed the nurse outreach case manager will get the facility. 3. Underlying psych disorder Unclear the patient specifically diagnosed with but does see a counselor. Denies any suicidal nor homicidal ideation 4. Debility: Therapy recommended skilled therapy. Patient declined sniff. Patient is open to home health care. - Secondary Discharge Diagnosis Chronic Problems Depression (Chronic) Insomnia (Chronic) She takes Temazepam every night for sleep, prescribed by Dr. Veliz Hypertension (Chronic) Physical debility (Chronic) Degenerative disc disease, lumbar (Chronic) Pain, chronic (Chronic) Seizure disorder (Chronic) Restless leg syndrome (Chronic) Obstructive sleep apnea (Chronic) non-compliant with CPAP but has oxygen to wear at night Smokes with greater than 40 pack year history (Chronic) Hospital Course and Treatment Imaging Results: Clinical Impression(s) from Imaging Studies Chest X-Ray 06/28/17 02:48 IMPRESSION: No acute cardiopulmonary disease. Electronically Signed: Danilo Rodriguez MD at 4:48 EST , Service support , Operations: None Procedures: None Summary of Care Provided: The patient is a 66 year old F Tiffani with acute hypercapnic respiratory failure. Patient was found to have a COPD exacerbation and did require BiPAP. Patient was started on bronchodilators, Solu-Medrol. Subsequent patient was added on Levaquin as well. Patient has done well and has been able to tolerate being off the BiPAP for extended periods of time. The patient will continue with her home medications +40 mg daily of prednisone +4 more days of Levaquin. Patient does have oxygen at home but when he has condenser so she will get portable tanks prior to her being discharged today. Patient is instructed to follow-up with her primary care doctor within the next 1-2 weeks. Additionally, patient was seen by therapy who did recommend fpc facility for the patient, patient declined stating that she would rather go with home health care. [] Discharge Diet: No Restrictions Discharge Activity: Return to Normal Activity Call your doctor if you observe: Fever of 101 or Higher, Shortness of breath Home Medications: Medications to take at Discharge Albuterol Aerosols [Ventolin Aerosols] 2.5 mg INHALATION Q4H PRN 05/12/16 Albuterol IH (ProAir) [Proair Hfa] 2 puff INHALATION BID 05/12/16 Alendronate Sodium [Fosamax] 70 mg PO Q7D@0700 05/12/16 Calcium Carbonate/Vitamin D3 [Oyster Shell 500-Vit D3 200 Tb] 1 each PO DAILY 05/12/16 Etodolac 400 mg PO BID 05/12/16 Fluticasone/Salmeterol [Advair 250/50 Mcg Diskus] 2 puff INHALATION BID 05/12/16 Gabapentin [Neurontin] 300 mg PO BIDCM 05/12/16 Methadone HCl 10 mg PO 4X/DAY 05/12/16 Phenytoin Na [Dilantin] 100 mg PO 4X/DAY 05/12/16 Pravastatin [Pravachol] 40 mg PO DAILY 05/12/16 Ropinirole HCl [Requip] 2 mg PO DAILY 05/12/16 Tolterodine Tartrate [Detrol LA] 4 mg PO DAILY 05/12/16 Bisacodyl [Dulcolax] 10 mg PO DAILY PRN PRN #0 tablet 06/25/16 Famotidine [Pepcid] 20 mg PO BID tablet 06/25/16 Mirtazapine [Remeron] 15 mg PO QHS tablet 06/25/16 Phenobarbital 30 mg PO BID #20 tablet 06/25/16 Benzonatate [Tessalon Perle] 100 mg PO 4X/DAY PRN PRN #30 cap 06/24/17 Oseltamivir Phosphate [Tamiflu] 75 mg PO BID #9 cap 06/24/17 Temazepam [Restoril] 30 mg PO QHS 06/24/17 Levofloxacin [Levaquin] 500 mg PO DAILY@0600 #4 tab 07/02/17 Prednisone 4 tab PO DAILY #16 tab 07/02/17 Following Prescrptions Were Given to Patient: Levofloxacin [Levaquin] 500 mg PO DAILY@0600 #4 tab Prednisone 4 tab PO DAILY #16 tab Primary Care Physician: Patel Veliz Chi, MD [Primary Care Provider] - Within 1 Week Patient Instructions: What is COPD?, Discharge Instructions: COPD, COPD: Using Inhalers Disposition: Home with Home Health Minutes spent on discharge:: 32 Patient Condition:: Fair Meaningful Use Info Meaningful Use Diagnoses (Choose all that apply): None applicable Code Visit Inpatient E&M: 82343 Disch Hosp
--- NOTE | 2017-07-02 10:19 | CASEMGMT ---
Addendum entered by Michela Rosas 07/02/17 11:10: RN received a return call from patient's son and he will be in to sisal picker patient at 1p. He said he lives in [place] and is not driving all the way to [place] to get her O2. GRAHAM called Yudith back and asked for the on-call company truck driver to call SW back. GRAHAM then received a return phone call from Yudith and GRAHAM told him about son and he said he is on his way with portable tank and will be here in a half hour. GRAHAM told RN. GRAHAM also faxed d/c instructions to patient's Direction Home dispatcher chief oil per her request. Plan: home with resumption of Passport services and home health jail, PT, and OT. GRAHAM made referral to [facility] and will follow up on Tuesday to make sure they can take patient. Michela LEWIS Original Note: Addendum entered by Michela Rosas 07/02/17 10:25: GRAHAM called patient's son and left [employer] voice mail letting him know patient is being d/c today and if he is able to pick her up. GRAHAM left GRAHAM's number for return call. Await return call from patient's son, Yaakov. Michela LEWIS Original Note: GRAHAM called Yudith and then received a call back from on-on air personality. He said patient has portables at home. GRAHAM told him that her son will be taking her home and she doesn't have any here. He said if her son goes to her home he could get them. GRAHAM told him patient is saying he cannot do this. He said he will call patient's son and see if he can do this and if not he will bring in a portable tank. GRAHAM faxed referral for home health to [facility]. GRAHAM will follow up on Tuesday to make sure they can take patient as they are closed currently. GRAHAM will call patient's son. Michela LEWIS
== END 2017-07-02 13:05 | disposition home health service (06) | DRG 190 ==
LOC: ED 02:53 → MS3 06:32 → PCU 09:27
PROVIDERS: Internal Medicine Critical Care Medicine; Admitting Provider Family Medicine; Emergency Provider Emergency Medicine; Family Provider Family Medicine Geriatric Medicine; PCP Family Medicine Geriatric Medicine
DX: J44.1 Chronic obstructive pulmonary disease with (acute) exacerbation (principal); J96.22 Acute and chronic respiratory failure with hypercapnia; Z99.81 Dependence on supplemental oxygen; F17.210 Nicotine dependence, cigarettes, uncomplicated; G47.33 Obstructive sleep apnea (adult) (pediatric); Z79.891 Long term (current) use of opiate analgesic; I10 Essential (primary) hypertension; G25.81 Restless legs syndrome; G40.909 Epilepsy, unspecified, not intractable, without status epilepticus; R53.81 Other malaise; F32.9 Major depressive disorder, single episode, unspecified; G47.00 Insomnia, unspecified; Z79.899 Other long term (current) drug therapy; M51.36 Other intervertebral disc degeneration, lumbar region
CPT/HCPCS: 36415; 36600; 71045; 80048; 80053; 82803; 82962; 83735; 84100; 84484; 85025; 87070; 87205; 87633; 93005; 94002; 94003; 94640; 94667; 94668; 97166; 99285; J7030; J7050; A4216

== ENCOUNTER → 2017-08-22 15:32 | Outpatient (CLI) | payer MEDICARE, SELFPAY ==
[2017-08-22 17:16] LABS: Absolute Neutrophil Count 3.1 X10^3/uL (2.0-7.7); Basophil# 0.03 X10^3/uL; Basophil% 0.5 % (0-1); Eosinophil# 0.27 X10^3/uL; Eosinophils% 4.2 % (0-5); Hematocrit 41.7 % (37-47); Hemoglobin 13.5 g/dl (12.0-15.0); Mean Corp Hgb Conc 32.4 g/gl (32-36); Mean Corpuscular Hgb 31.5 pg (27.0-32.0); Mean Corpuscular Volume 97.4 fL (81-99); Mean Platelet Vol. 10.3 fl (6.2-12.0); Neutrophil # 3.09 X10^3/uL (2.7-7.7); Neutrophil % 48.3 % (47-70); Platelet Count 210 K/mm3 (150-450); RBC Distribution Width CV 13.6 % (11.6-14.6); RBC Distribution Width SD 47.8 fl (35.1-43.9); Red Blood Count 4.28 M/mm3 (4.2-5.4); White Blood Count 6.4 K/mm3 (4.4-11.0)
[2017-08-22 17:22] LABS: POSITIVE COUNT NO; POSITIVE DIFFERENTIAL NO; POSITIVE MORPHOLOGY NO
[2017-08-22 17:55] LABS: Vitamin D,25 Hydroxy 16.2 ng/mL (29.95-100.01)
[2017-08-22 18:03] LABS: ALB/GLOB Ratio 0.9 RATIO (0.9-2.4); AST(SGOT) 29 U/L (15-37); Alanine Aminotransfer ALT/SGPT 28 U/L (13-56); Albumin, Serum 3.5 g/dL (3.2-5.0); Alkaline Phosphatase 59 U/L (45-117); Anion Gap 9 (5-15); BUN 14 mg/dL (7-18); Calcium,Total 8.3 mg/dL (8.5-10.1); Chloride 102 mmol/L (98-107); Creatinine, Serum 0.74 mg/dL (0.55-1.02); EST Glomerular Filtration Rate 83 mL/min (>60); Est Glom Filt Rate - Afr Amer 101 mL/min (>60); Globulin 3.7 g/dL (2.2-4.2); Glucose 149 mg/dL (74-106); Potassium 3.6 mmol/L (3.5-5.1); Protein, Total 7.2 g/dL (6.4-8.2); Sodium Level 141 mmol/L (136-145); Thyroid Stim Hormone (TSH) 0.96 uIU/mL (0.358-3.74)
[2017-08-24 11:03] LABS: Hep C Antibodies <0.1 s/co ratio (0.0-0.9)
== END ==
PROVIDERS: Family Provider Family Medicine Geriatric Medicine; PCP Family Medicine Geriatric Medicine; Visit Provider Family Medicine Geriatric Medicine
DX: Z13.89 Encounter for screening for other disorder (principal); E55.9 Vitamin D deficiency, unspecified; I10 Essential (primary) hypertension
CPT/HCPCS: 36415; 80053; 82306; 84443; 85025; 86803

== ENCOUNTER 2017-09-04 21:38 | Emergency (ER) | payer MEDICARE, SELFPAY ==
[2017-09-04 21:39] VITALS: BP 150/69; PULSE 98; RESP 24; TEMP 37.2; O2SAT 93; BMI 29.7
--- NOTE | 2017-09-04 21:40 | NURSING ---
CALLED FOR EKG @2129, PULLED OLD EKG'S FOR DR @THIS TIME
--- NOTE | 2017-09-04 22:25 | EKG12_ITS ---
Test Reason : CP Blood Pressure : / mmHG Vent. Rate : 098 BPM Atrial Rate : 098 BPM P-R Int : 158 ms QRS Dur : 084 ms QT Int : 356 ms P-R-T Axes : 071 006 016 degrees QTc Int : 454 ms Normal sinus rhythm Normal ECG Confirmed by LEONELA GONGORA MD ([id number]), image editor GOPI RAMIREZ ([id number]) on 09/06/2017 3:20:10 PM Referred By: GINGER Confirmed By:LEONELA GONGORA MD
--- NOTE | 2017-09-04 22:27 | ED.VISSUMM ---
- ER Visit Summary Date of Service: 09/04/17 Chief Complaint: Chest pain History of Present Illness: The patient is a 67 F COPD not on O2. States at noon today she started having chest pain. Describes a dull ache radiating her left neck. She denies any associated dyspnea. No nausea. No diaphoresis. Patient cardiac catheterization done 1 year ago which was negative. She has never had a DVT or PE. She denies any recent travel surgery or hospitalization within the last month. She denies any leg swelling, calf pain or hemoptysis. There is no pleuritic nature to the pain. Nothing specifically makes it better or worse. Physical Examination: Older female no acute distress vital signs are stable afebrile. Pulse ox 93% on room air no hypoxia. H EENT exam unremarkable. Neck nontender. No lymphadenopathy. Lungs clear to auscultation bilaterally. Heart regular rhythm no murmur. Chest wall nontender. No ecchymosis or bruising no subcu air. Abdomen soft nontender. Normal bowel sounds no peritoneal signs. She is moving all 4 extremities. There is no edema. Calves are nontender without cords. Neurologically she is awake and alert with no focal deficits. She does have also a complaint of rectal hemorrhoids. There is inflamed hemorrhoids but no active bleeding. Test Results: CBC normal. BMP unremarkable. Normal creatinine and gap. Troponin normal. EKG sinus rhythm rate of 98 with no acute signs of DC or ischemia unchanged from prior EKGs from June of this year. Chest x-ray no acute process read both by myself and the radiologist. Emergency Department Course and Treatment: She will undergo cardiac workup received p.o. aspirin and sublingual nitro. Treatment Plan: Repeat exam patient is doing well at 2358. She is currently being discharged home. She tells me she had a recent cardiac catheterization in the last several months that was negative. Her chest pain does not appear to be cardiac either by history, exam or labs. She continues Preparation H for her hemorrhoids. Disposition: Discharge Impression: Chest pain of uncertain etiology Acute hemorrhoids This note was generated with [employer] dictation software. It may contain incorrect words, spelling, and punctuation that were not noted in review of the chart prior to signing ED Disposition - Plan for ED Patient: Chief Complaint: Chest Pain Referrals: Patel Veliz Chi, MD [Primary Care Provider] -
[2017-09-04 22:50] VITALS: BP 161/92; PULSE 91; RESP 24; O2SAT 93
--- NOTE | 2017-09-04 22:55 | RAD_ITS ---
STUDY: X-RAY CHEST REASON FOR EXAM: Female, 67 years old. Chest pain TECHNIQUE: Single AP portable view of the chest. COMPARISON: 07/03/2017. FINDINGS: The lungs are clear and expanded. There is no demonstrated pleural abnormality. Normal size heart. Normal mediastinum and denae. Normal visualized pulmonary arteries. Normal visualized aortic arch and descending thoracic aorta. Normal visualized thoracic spine. There is degenerative osteoarthritis of the bilateral shoulders. There is no demonstrated abnormality of the visualized soft tissue structures of the upper abdomen. RAD/Chest 1 View (Portable) IMPRESSION: Normal x-ray examination of the chest. Electronically Signed: Terrance Lara MD at 23:19 EDT , Service support ,
[2017-09-04 23:02] LABS: Absolute Lymphocyte Count 2.33 X10^3/ul (0.83-4.51); Absolute Neutrophil Count 5.1 X10^3/uL (2.0-7.7); Basophil# 0.02 X10^3/uL; Basophil% 0.2 % (0-1); Eosinophil# 0.11 X10^3/uL; Eosinophils% 1.3 % (0-5); Lymphocyte # 2.33 X10^3/ul (4.0); Lymphocyte % 27.8 % (19-41); Mean Corp Hgb Conc 31.7 g/gl (32-36); Mean Corpuscular Hgb 30.3 pg (27.0-32.0); Mean Corpuscular Volume 95.6 fL (81-99); Mean Platelet Vol. 9.4 fl (6.2-12.0); Monocyte# 0.78 X10^3/uL; Monocyte% 9.3 % (0-10); Neutrophil # 5.12 X10^3/uL (2.7-7.7); Neutrophil % 61.3 % (47-70); Platelet Count 177 K/mm3 (150-450); RBC Distribution Width CV 13.4 % (11.6-14.6); RBC Distribution Width SD 46.6 fl (35.1-43.9); Red Blood Count 4.29 M/mm3 (4.2-5.4); White Blood Count 8.4 K/mm3 (4.4-11.0)
[2017-09-04 23:03] LABS: POSITIVE COUNT NO; POSITIVE DIFFERENTIAL NO; POSITIVE MORPHOLOGY NO
[2017-09-04 23:16] LABS: Anion Gap 11 (5-15); BUN 13 mg/dL (7-18); BUN/Creat Ratio 25.7 RATIO (10-20); Calcium,Total 8.2 mg/dL (8.5-10.1); Chloride 109 mmol/L (98-107); EST Glomerular Filtration Rate 129 mL/min (>60); Est Glom Filt Rate - Afr Amer 156 mL/min (>60); Estimated Creatinine Clearance 48.45 ml/min; Glucose 101 mg/dL (74-106); Potassium 3.2 mmol/L (3.5-5.1); Sodium Level 146 mmol/L (136-145)
[2017-09-04 23:22] VITALS: BP 153/90; PULSE 85
[2017-09-04 23:27] VITALS: BP 139/85; PULSE 85
[2017-09-04 23:32] VITALS: BP 139/80; PULSE 93
--- NOTE | 2017-09-05 00:02 | ED.DEP ---
ED Disposition - Plan for ED Patient: Disposition: Home or Assisted Living Chief Complaint: Chest Pain Instructions: ED Chest Pain Atypical Unkn Cause, ED Hemorrhoids Referrals: Patel Veliz Chi, MD [Primary Care Provider] - 3-5 Days if not improving Additional Instructions: All your labs were normal tonight. Preparation H or Anusol and warm soaks for your hemorrhoids.
[2017-09-05 00:38] VITALS: BP 140/93; PULSE 90; RESP 22; O2SAT 96
== END 2017-09-05 00:38 | disposition home or self-care (01) ==
PROVIDERS: Emergency Provider Emergency Medicine; Family Provider Family Medicine Geriatric Medicine; PCP Family Medicine Geriatric Medicine
DX: R07.9 Chest pain, unspecified (principal); K64.8 Other hemorrhoids; J44.9 Chronic obstructive pulmonary disease, unspecified; Z72.0 Tobacco use
CPT/HCPCS: 71045; 80048; 84484; 85025; 93005; 99285; J7030

== ENCOUNTER 2017-09-05 11:00 | Emergency (ER) | payer MEDICARE, SELFPAY ==
[2017-09-05 11:04] VITALS: BP 133/69; PULSE 88; RESP 20; TEMP 37.1; O2SAT 97; BMI 30.1
--- NOTE | 2017-09-05 11:36 | ED.VISSUMM ---
- ER Visit Summary Date of Service: 09/05/17 Chief Complaint: Hemorrhoids History of Present Illness: The patient is a [address] Veliz and Dr. Andujar. She reports that she has pain from her hemorrhoids that began yesterday. States the sharp pains 10 at 10 severity. Is worsened by laying her back. She relieved by nothing including the methadone that she is on. She has been using Preparation H for this. She denies any blood in her stools or black tarry stools. She denies any abdominal pain. Review of systems: General: No fever, chills, cold sweats. Cardiovascular: No chest pain, palpitations. Respiratory: No cough, shortness of breath, dyspnea on exertion. Gastrointestinal: No abdominal pain, nausea, vomiting, diarrhea, melena, or hematochezia. Genitourinary: No dysuria, frequency, hematuria. Skin: No rash. Neuro: No headache, numbness, weakness. Physical Examination: Vitals: Stable. Afebrile. General: Well-nourished and well-developed. Head: Normocephalic atraumatic. Neck: Supple, no lymphadenopathy. No JVD. Nontender. Cardiovascular: Regular rate and rhythm. No murmurs. Respiratory: No respiratory distress. Clear to auscultation bilaterally. Abdominal: Soft, nontender, nondistended, normal bowel sounds. No guarding, rebound, or peritoneal signs. Rectal: Inflamed external hemorrhoids with no thrombosis or bleeding. Back: Nontender. Extremities: Nontender, no edema. Skin: Normal color, no rash. Neurologic: Alert and oriented ?3. Cranial nerves II through XII are intact. Normal strength and sensation. Psych: Normal affect. Emergency Department Course and Treatment: I had a prolonged discussion the patient that opiate medications are not appropriate for hemorrhoids. The patient was here 12 hours ago with the same complaint. I did obtain to obtain an OARS report and it came back as forwarded to your special education administrator. The patient is in pain management and on methadone. Treatment Plan: [facility] instructed to follow-up with Dr. Taylor in 1-2 weeks if not improving. Disposition: To home in improved and stable condition. Impression: 1. External hemorrhoids. 2. Opiate seeking behavior. This note was generated with [employer] software. It may contain incorrect words, spelling, and punctuation that were not noted in review of the chart prior to signing ED Disposition - Plan for ED Patient: Disposition: Home or Assisted Living Chief Complaint: Other, Pain/Inj Instructions: Treating Hemorrhoids: Self-Care Prescriptions: Hydrocortisone [Anusol Hc] 25 mg RECTAL TID PRN PRN #20 suppos. PRN Reason: Pain Referrals: Daniel Taylor MD [STAFF PHYSICIAN] - 1-2 Weeks
[2017-09-05 11:56] VITALS: BP 137/54; PULSE 72; RESP 18; O2SAT 97
== END 2017-09-05 11:57 | disposition home or self-care (01) ==
LOC: ED 11:42
PROVIDERS: Emergency Provider Emergency Medicine; Family Provider Family Medicine Geriatric Medicine; PCP Family Medicine Geriatric Medicine
DX: K64.4 Residual hemorrhoidal skin tags (principal); Z79.891 Long term (current) use of opiate analgesic; Z76.5 Malingerer [conscious simulation]; J44.9 Chronic obstructive pulmonary disease, unspecified; I10 Essential (primary) hypertension; Z72.0 Tobacco use; G25.81 Restless legs syndrome; G47.33 Obstructive sleep apnea (adult) (pediatric); G40.909 Epilepsy, unspecified, not intractable, without status epilepticus; Z79.899 Other long term (current) drug therapy
CPT/HCPCS: 99284

== ENCOUNTER 2017-09-05 18:56 | Emergency (ER) | payer MEDICARE, SELFPAY ==
[2017-09-05 18:57] VITALS: BP 117/70; PULSE 101; RESP 16; TEMP 37.1; O2SAT 95; BMI 30.1
== END 2017-09-05 20:59 | disposition left against medical advice (07) ==
LOC: ED 20:50
PROVIDERS: Emergency Provider Emergency Medicine; Family Provider Family Medicine Geriatric Medicine; PCP Family Medicine Geriatric Medicine
DX: K64.4 Residual hemorrhoidal skin tags (principal); Z76.5 Malingerer [conscious simulation]; I10 Essential (primary) hypertension; G25.81 Restless legs syndrome; G47.33 Obstructive sleep apnea (adult) (pediatric); G40.909 Epilepsy, unspecified, not intractable, without status epilepticus; Z79.891 Long term (current) use of opiate analgesic; Z79.899 Other long term (current) drug therapy; Z72.0 Tobacco use
CPT/HCPCS: 99282; 99284

== ENCOUNTER → 2017-11-03 15:09 | Outpatient (CLI) | payer MEDICARE, SELFPAY ==
[2017-11-03 17:55] LABS: Amphetamine Urine VISTA NEGATIVE (<1000 ng/mL); Barbiturate Urine VISTA POSITIVE (< 200 ng/mL); Benzodiazepine Urine VISTA NEGATIVE (< 200 ng/mL); Cocaine Urine VISTA NEGATIVE (< 300 ng/mL); Ecstacy Urine VISTA POSITIVE (< 500 ng/mL); Methadone Urine VISTA POSITIVE (< 300 ng/mL); PCP Urine VISTA NEGATIVE (< 25 ng/mL); THC Urine VISTA NEGATIVE (< 50 ng/mL); Vista UDS pH Range 5
== END ==
PROVIDERS: Family Provider Family Medicine Geriatric Medicine; PCP Family Medicine Geriatric Medicine; Visit Provider Anesthesiology Pain Medicine
DX: F11.20 Opioid dependence, uncomplicated (principal)
CPT/HCPCS: 80307

== ENCOUNTER 2017-11-07 11:18 | Inpatient (IN) | payer MEDICARE, SELFPAY ==
[2017-11-07] VITALS (11 sets, daily range): BP systolic 91–133; BP diastolic 51–74; PULSE 64–89; RESP 13–18; TEMP 36.9–37.5; O2SAT 94–99; BMI 28.0; BMI 27.6
--- NOTE | 2017-11-07 11:34 | EKG12_ITS ---
Test Reason : GEN ILLNESS Blood Pressure : / mmHG Vent. Rate : 072 BPM Atrial Rate : 072 BPM P-R Int : 162 ms QRS Dur : 100 ms QT Int : 426 ms P-R-T Axes : 083 036 049 degrees QTc Int : 466 ms Normal sinus rhythm Low voltage QRS (limb leads) Confirmed by JAMES LEACH, LUZ ([id number]), legal editor GOPI RAMIREZ ([id number]) on 11/11/2017 11:07:01 AM Referred By: Georgiana Andujar Confirmed By:LUZ RAMIREZ MD
[2017-11-07] MEDS: 0.9% Normal Saline 1,000 ML 1000 ML IV (12:00)
[2017-11-07 12:21] LABS: Absolute Lymphocyte Count 1.64 X10^3/ul (0.83-4.51); Absolute Neutrophil Count 3.9 X10^3/uL (2.0-7.7); Basophil# 0.04 X10^3/uL; Basophil% 0.6 % (0-1); Eosinophil# 0.21 X10^3/uL; Eosinophils% 3.3 % (0-5); Hemoglobin 13.8 g/dl (12.0-15.0); Lymphocyte # 1.64 X10^3/ul (4.0); Lymphocyte % 25.7 % (19-41); Mean Corp Hgb Conc 32.1 g/gl (32-36); Mean Corpuscular Hgb 30.7 pg (27.0-32.0); Mean Corpuscular Volume 95.6 fL (81-99); Mean Platelet Vol. 9.4 fl (6.2-12.0); Monocyte# 0.54 X10^3/uL; Monocyte% 8.5 % (0-10); Neutrophil # 3.91 X10^3/uL (2.7-7.7); Neutrophil % 61.4 % (47-70); Platelet Count 224 K/mm3 (150-450); RBC Distribution Width CV 13.8 % (11.6-14.6); RBC Distribution Width SD 47.2 fl (35.1-43.9); White Blood Count 6.4 K/mm3 (4.4-11.0)
[2017-11-07 12:27] LABS: POSITIVE COUNT NO; POSITIVE DIFFERENTIAL NO; POSITIVE MORPHOLOGY NO
--- NOTE | 2017-11-07 12:40 | RAD_ITS ---
STUDY: X-RAY CHEST REASON FOR EXAM: Female, 67 years old. Generalized illness. Weakness. TECHNIQUE: AP and lateral views of the chest. COMPARISON: Comparison is made with prior study dated September 04, 2017. FINDINGS: EKG electrodes are seen. Hyperinflation. The lungs are clear. There is no demonstrated pleural abnormality. Normal size heart. Normal mediastinum and denae. Normal visualized pulmonary arteries. Normal visualized aortic arch and descending thoracic aorta. There are degenerative changes of the visualized thoracic spine. There is degenerative osteoarthritis of the bilateral shoulders. There is no demonstrated abnormality of the visualized soft tissue structures of the upper abdomen. RAD/Chest PA and Lateral IMPRESSION: Hyperinflation. Electronically Signed: Isaias Munroe MD at 13:23 EDT Tel [phone], Service support ,
[2017-11-07 12:42] LABS: ALB/GLOB Ratio 0.7 RATIO (0.9-2.4); AST(SGOT) 40 U/L (15-37); Alanine Aminotransfer ALT/SGPT 42 U/L (13-56); Albumin, Serum 3.1 g/dL (3.2-5.0); Alkaline Phosphatase 133 U/L (45-117); Anion Gap 13 (5-15); BUN 12 mg/dL (7-18); BUN/Creat Ratio 20.8 RATIO (10-20); Calcium,Total 7.9 mg/dL (8.5-10.1); Chloride 105 mmol/L (98-107); Creatinine, Serum 0.58 mg/dL (0.55-1.02); EST Glomerular Filtration Rate 110 mL/min (>60); Est Glom Filt Rate - Afr Amer 133 mL/min (>60); Estimated Creatinine Clearance 48.45 ml/min; Globulin 4.6 g/dL (2.2-4.2); Glucose 65 mg/dL (74-106); Lipase 49 U/L (73-393); Potassium 4.1 mmol/L (3.5-5.1); Protein, Total 7.7 g/dL (6.4-8.2); Sodium Level 135 mmol/L (136-145)
[2017-11-07 13:11] LABS: Bacteria 0 SEEN /hpf (None Seen); White Blood Cells 0 SEEN /hpf (0-5)
[2017-11-07 13:14] LABS: Color, Urine Yellow (Yellow); Glucose, Dipstick Normal (Normal); Leukocyte Esterase-Dipstick Negative /ul (Negative); Nitrite-Dipstick Negative (Negative); Occult Blood-Urine 10 /ul (Negative); Protein-Dipstick 15 mg/dl (Negative); Specific Gravity, Urine 1.025 (1.002-1.030); Urine Bilirubin Dipstick Negative (Negative); Urine Clarity Sl. Cloudy (Clear); Urine Urobilinogen Normal (Normal)
[2017-11-07 13:17] LABS: Ketone-Dipstick 150 mg/dl (Negative)
--- NOTE | 2017-11-07 13:17 | ED.RN ---
URINE KETONE 150, MD AWARE.
[2017-11-07 13:20] LABS: Mucous, Urine 1+ /hpf (<or=2+); Red Blood Cells-Urine 0-5 SEEN /hpf (0-5); Squamous Epithelial Cells - UA 0-5 SEEN /hpf (5-10)
[2017-11-07 13:50] LABS: Base Excess -14 mmol/L (-2 to +2); Bicarbonate 13.2 mmol/L (22-26); Blood Gas Specimen Type ART; O2 Delivery Device Room Air; PO2 73 mmHG (75-100); SITE L Brachial; SO2 93 % (95-99); Time Given 1345; Total Carbon Dioxide 14 mmol/L; pCO2 28.4 mmHg (35-45); pH 7.27 (7.35-7.45)
[2017-11-07] MEDS: HYDROcodone Bitartrate/Apap 5/325 Tablet PO ×2 (14:20→18:23)
[2017-11-07 14:27] LABS: Phenytoin (Dilantin) Level 7.9 mL (10.0-20.0)
[2017-11-07 14:42] LABS: Lactic Acid 0.8 mmol/L (0.4-2.0)
[2017-11-07] MEDS: Dextrose 50%-Water 25 GM/50 ML DISP.SYRIN IV (14:54)
--- NOTE | 2017-11-07 15:31 | CASEMGMT ---
Social Work Note Attempted to see for initial assessment. Pt being seen by hospitalist. Will attempt to see prior to transfer to unit. Maryuri Colvin, FRONT DESK ATTENDANT, AUDIOLOGIST
--- NOTE | 2017-11-07 15:37 | PCM.HP.STD ---
Problem List (1) Acidosis Status: Acute (2) Generalized weakness Status: Chronic (3) Debility Status: Chronic History of Present Illness Date of Admission: 11/07/17 The patient is a 67 year old F who presented to the ER by squad from home after calling for generalized pain. She has chronic back pain for which she sees Dr. Andujar for pain management and is on high dose opiates. She developed severe all over body pain Tuesday. She has still been functioning at home despite this, she ambulates with a rollator. She has not been out of her apartment in 2 weeks and denies sick contacts. She lives alone. She has not eaten in 3 days either. She states she has no appetite and has been mildly nauseous though she has not vomited. Denies diarrhea. She has not had a bowel movement, but does note feel that she is constipated. She has some generalized abdominal pain, not localized. She denies dizziness, LH. She has a hx of COPD and seizures. She has not had a seizure in 2.5 years and denies new tremor or aura. She has no respiratory complaints. She is chronically mildly SOB and has a chronic cough. She smokes a ppd for 20 year now. No fever or chills. Occasional dysuria however UA negative for infection. CXR with hyperinflation. She is somewhat acidotic on ABG and has an elevated ketone level with low blood sugar. She is not diabetic, but again she has not eaten in three days, and has had minimal water intake. [] Past Medical History Past Medical History (Chronic Problems): Chronic Problems Generalized weakness (Chronic) Debility (Chronic) Depression (Chronic) Insomnia (Chronic) She takes Temazepam every night for sleep, prescribed by Dr. Veliz Hypertension (Chronic) Physical debility (Chronic) Degenerative disc disease, lumbar (Chronic) Pain, chronic (Chronic) Seizure disorder (Chronic) Restless leg syndrome (Chronic) Obstructive sleep apnea (Chronic) non-compliant with CPAP but has oxygen to wear at night Smokes with greater than 40 pack year history (Chronic) Allergies Penicillins Allergy (Verified 11/07/17 11:20) Anaphylaxis codeine Adverse Reaction (Verified 11/07/17 11:20) Nausea Home Medications: Ambulatory Orders Medication Instructions Recorded Albuterol Aerosols [Ventolin 2.5 mg INHALATION Q4H PRN 05/12/16 Aerosols] Albuterol IH (ProAir) [Proair Hfa] 2 puff INHALATION BID 05/12/16 Alendronate Sodium [Fosamax] 70 mg PO Q7D@0700 05/12/16 Calcium Carbonate/Vitamin D3 1 each PO DAILY 05/12/16 [Oyster Shell 500-Vit D3 200 Tb] Etodolac 400 mg PO BID 05/12/16 Fluticasone/Salmeterol [Advair 2 puff INHALATION BID 05/12/16 250/50 Mcg Diskus] Gabapentin [Neurontin] 300 mg PO 4X/DAY 05/12/16 Phenytoin Na [Dilantin] 100 mg PO 4X/DAY 05/12/16 Ropinirole HCl [Requip] 2 mg PO DAILY 05/12/16 Tolterodine Tartrate [Detrol LA] 4 mg PO DAILY 05/12/16 Temazepam [Restoril] 30 mg PO QHS 06/24/17 Mirtazapine [Remeron] 15 mg PO QHS 07/03/17 Latanoprost 0.005% [Xalatan 1 drop EACH EYE QHS 07/04/17 Opthalmic] Furosemide [Lasix] 40 mg PO DAILY 09/04/17 Methadone HCl 10 mg PO TID 09/04/17 Phenobarbital 32.4 mg PO BID 09/04/17 Hydrocortisone [Anusol Hc] 25 mg RECTAL TID PRN PRN #20 09/05/17 suppos. Surgical History: appendectomy, cholecystectomy, - - Fractured right ankle, carpal tunnel surgery, removal of teeth, right ovariectomy and fallopian tube removal. Psychiatric History: Depression - untreated INSULATION HELPER History: No pertinent INSULATION HELPER history Lives: Alone Smoking Status: Current every day smoker Tobacco Use: Cigarettes Alcohol: None Drugs: None - *Family History Maternal History Items: Diabetes Paternal History Items: Cancer - colon Sibling History Items: No pertinent history Review of Systems Constitutional: Reports: Malaise, - - generlized pain. Denies: Chills, Fever, Weight Change HEENT: Denies: Head Aches, Sinus Congestion, Sinus Drainage Cardiovascular: Denies: Chest Pain, Palpitations Respiratory: Denies: Cough, Shortness of breath at rest, Sputum production Gastrointestinal: Reports: Abdominal Pain, Nausea. Denies: Vomiting Genitourinary: Reports: Dysuria Musculoskeletal: Denies: Joint Pain, Joint Tenderness Skin: Denies: Rash, Wounds Neurological: Denies: Numbness, Tingling, Focal weakness Psychiatric: Denies: Anxiety, Depression, Homicidal Ideations, Suicidal Ideations Hematologic/ Lymphatic: Denies: Easy Bruising, Easy Bleeding VTE Information - Inpt Only VTE Present on Admission: No VTE Mechan Device Prophylaxis: SCD's VTE Pharm Prophylaxis ordered?: Yes Patient Problems: Active and Suspected Problems Acidosis (Acute) - Physical Exam General: Alert, Oriented x3, Cooperative HEENT: Atraumatic, PERRLA, EOMI, Normocephalic Neck: Supple, No JVD, Negative Carotid Bruits Lungs: Clear to auscultation, Normal air movement Cardiovascular: Regular rate, No murmurs Abdomen: Bowel Sounds Present, Soft, Non Tender, Tender - diffusely tender to light palp Extremities: No edema, Capillary Refill Less than 3 Seconds Skin: No rashes, No breakdown Musculoskeletal: No Tenderness to Palpation of Joints or Extremities Neurological: Cranial nerves II-XII grossly intact Psych/Mental Status: Normal Affect, Appropriate, Alert and oriented to time, place, person, mood and affect Vital Signs Temp Pulse Resp BP Pulse Ox 98.5 F 86 14 115/56 L 96 11/07/17 11:20 11/07/17 15:27 11/07/17 15:27 11/07/17 15:27 11/07/17 15:27 Assessment/Plan Active and Suspected Problems Acidosis (Acute) 1. Acidosis - suspect metabolic 2/2 starvation - low glucose with elevated ketone level, has not eaten in 3 days. Start IV fluids and aggressive antiemetics with gluing machine operator electronic consult and gently encourage PO intake. Generalized abdominal pain. Neg lipase. Mildly elevated Alk phos and AST. Avoid Tylenol containing products. Check acetaminophen level. LA is negative. Trop neg. CXR with hyperinflation. Check resp panel possibly viral syndrome but unlikely. No new respiratory complaints. Renal function normal. No recent seizure or prodrome activity. No new medication/OTC changes. 2. Generalized pain - suspect 2/2 chronic back pain. Pt of Dr. Andujar - continue home meds. Some increased Generlized abdominal pain and tenderness on exam - check KUB. 3. COPD - stable. PRN aerosols. CO2 low. 4. Debility - ambulatory with walker. PTOT. Encourage out of bed. 5. Nicotine abuse - patch if desired. Smokes 1 ppd for 20 years. 6. Hx seizures - low phenytoin level. Continue home meds. 7. ?Osteoporosis - on alendronate/ca2+/vitd DVT ppx: lovenox DC planning: PTOT This patient was seen by Tavo Patino PA-C under the supervision of Dr. Hensley.
--- NOTE | 2017-11-07 15:58 | ED.VISSUMM ---
- ER Visit Summary Date of Service: 11/07/17 Chief Complaint: Body aches History of Present Illness: The patient is a 67 F 0-by ambulance for body aches began on Tuesday. She states that she has been unable to eat or drink since that time. She denies missing any doses of her methadone or any of her other medications. She denies any fevers. No change in breathing. She denies any abdominal pain or urinary symptoms. Notes a history of obstructive sleep apnea spinal stenosis/chronic pain and COPD. She is a patient of Dr. Veliz. Is able to smoke 1 cigarette today. Physical Examination: Afebrile vital signs are stable Gen: Well-nourished well-developed Head: Normocephalic atraumatic Eyes: Perrl EOMI ENT: TMs clear no rhinorrhea moist mucous membranes Neck: Supple no lymphadenopathy no JVD nontender CVS: Regular rate rhythm no murmurs normal S1-S2 Respiratory: No distress clear to auscultation bilaterally chest nontender Abdomen: Soft nontender nondistended normal bowel sounds no masses Back: Nontender Extremity: Nontender no edema Skin: Normal color no rash Neuro: alert orientated ?3 CN II-XII intact normal strength sensation Psych: Patient appears depressed. Test Results: White count 6.4. Chemistry shows sodium 135 glucose is 65 and a CO2 of 17. Liver lipase essentially negative. Urinalysis positive for 150 ketones no overt infection. Troponin less than 0.015. Lactic acid 0.8. Moderate ketones in the blood. PH 7.27 CO2 28.4 bicarb is 13 PO2 at 73 chest x-ray negative. EKG sinus at a rate of 72. Emergency Department Course and Treatment: She received IV fluids of D50. She requested something for pain and given [place]. Given the metabolic acidosis which I am attributing to starvation ketosis has occurred over the past several days her plan will be admission. Impression: 1. Metabolic acidosis 2. Starvation ketosis 3. Hypoglycemia This note was generated with [employer] dictation software. It may contain incorrect words, spelling, and punctuation that were not noted in review of the chart prior to signing ED Disposition - Plan for ED Patient: Disposition: Acute Care [facility] Chief Complaint: General Illness
--- NOTE | 2017-11-07 16:03 | ED.DCSUM_ITS ---
- ER Visit Summary Date of Service: 11/07/17 Chief Complaint: Body aches History of Present Illness: The patient is a 67 F 0-by ambulance for body aches began on Tuesday. She states that she has been unable to eat or drink since that time. She denies missing any doses of her methadone or any of her other medications. She denies any fevers. No change in breathing. She denies any abdominal pain or urinary symptoms. Notes a history of obstructive sleep apnea spinal stenosis/chronic pain and COPD. She is a patient of Dr. Veliz. Is able to smoke 1 cigarette today. Physical Examination: Afebrile vital signs are stable Gen: Well-nourished well-developed Head: Normocephalic atraumatic Eyes: Perrl EOMI ENT: TMs clear no rhinorrhea moist mucous membranes Neck: Supple no lymphadenopathy no JVD nontender CVS: Regular rate rhythm no murmurs normal S1-S2 Respiratory: No distress clear to auscultation bilaterally chest nontender Abdomen: Soft nontender nondistended normal bowel sounds no masses Back: Nontender Extremity: Nontender no edema Skin: Normal color no rash Neuro: alert orientated ?3 CN II-XII intact normal strength sensation Psych: Patient appears depressed. Test Results: White count 6.4. Chemistry shows sodium 135 glucose is 65 and a CO2 of 17. Liver lipase essentially negative. Urinalysis positive for 150 ketones no overt infection. Troponin less than 0.015. Lactic acid 0.8. Moderate ketones in the blood. PH 7.27 CO2 28.4 bicarb is 13 PO2 at 73 chest x- ray negative. EKG sinus at a rate of 72. Emergency Department Course and Treatment: She received IV fluids of D50. She requested something for pain and given [place]. Given the metabolic acidosis which I am attributing to starvation ketosis has occurred over the past several days her plan will be admission. Impression: 1. Metabolic acidosis 2. Starvation ketosis 3. Hypoglycemia This note was generated with [employer] dictation software. It may contain incorrect words, spelling, and punctuation that were not noted in review of the chart prior to signing ED Disposition - Plan for ED Patient: Disposition: Acute Care [facility] Chief Complaint: General Illness
[2017-11-07 16:40] LABS: Magnesium 2.3 mg/dL (1.6-2.6); Phosphorus 2.5 mg/dL (2.5-4.9)
--- NOTE | 2017-11-07 16:43 | NURSING ---
Pt's primary nurse aware that home med list updated and will contact physician
--- NOTE | 2017-11-07 17:15 | RAD_ITS ---
STUDY: X-RAY - ABDOMEN/PELVIS REASON FOR EXAM: Female, 67 years old. PATIENT COMPLAINS OF GENERALIZED ABDOMINAL PAIN TECHNIQUE: Single AP view of the abdomen / pelvis. COMPARISON: None. FINDINGS: Normal visualized lung bases. There are multiple metallic clips in the right upper quadrant. This is consistent for a cholecystectomy. There is an unremarkable bowel gas pattern. There is no demonstrated free abdominal air. The visualized liver, spleen and kidneys are grossly normal in size and morphology. Total right hip arthroplasty. Normal soft tissue structures. There are diffuse degenerative changes of the visualized lumbar spine. RAD/Abdomen Single View IMPRESSION: Normal x-ray examination of the abdomen and pelvis. Electronically Signed: Rocco Christiansen MD at 17:39 EDT , Service support ,
[2017-11-07 17:58] LABS: Acetaminophen (Tylenol) Level < 2.0 ug/mL (10.0-30.0)
[2017-11-07] MEDS: Gabapentin 300 MG Capsule PO ×2 (18:19→22:01)
[2017-11-07] MEDS: Phenytoin Na 100 MG Capsule PO ×2 (18:19→22:01)
[2017-11-07 18:31] LABS: Bedside Glucose 72 mg/dL (70-110)
[2017-11-07] MEDS: Ipratropium/Albuterol Sulfate 3 ML AMPUL.NEB INHALATION (19:20)
[2017-11-07 19:53] LABS: Amphetamine Urine VISTA NEGATIVE (<1000 ng/mL); Barbiturate Urine VISTA POSITIVE (< 200 ng/mL); Benzodiazepine Urine VISTA NEGATIVE (< 200 ng/mL); Cocaine Urine VISTA NEGATIVE (< 300 ng/mL); Ecstacy Urine VISTA POSITIVE (< 500 ng/mL); Methadone Urine VISTA POSITIVE (< 300 ng/mL); PCP Urine VISTA NEGATIVE (< 25 ng/mL); THC Urine VISTA NEGATIVE (< 50 ng/mL); Vista UDS pH Range 6
[2017-11-07] MEDS: Temazepam 15 MG Capsule 30 MG PO (22:02)
[2017-11-07] MEDS: Methadone 10 MG Tablet PO (22:02)
[2017-11-07] MEDS: Mirtazapine 15 MG Tablet PO (22:03)
[2017-11-07] MEDS: Latanoprost 0.005% 1 Bottle 1 DRP EACH EYE (22:03)
[2017-11-07] MEDS: Famotidine 20 MG Tablet PO (22:03)
[2017-11-07 22:11] LABS: Bedside Glucose 182 mg/dL (70-110)
[2017-11-08] VITALS (9 sets, daily range): BP systolic 109–119; BP diastolic 54–60; PULSE 55–100; RESP 16–18; TEMP 36.8–37.1; O2SAT 93–95
[2017-11-08 05:56] LABS: Absolute Lymphocyte Count 2.61 X10^3/ul (0.83-4.51); Absolute Neutrophil Count 2.6 X10^3/uL (2.0-7.7); Basophil# 0.03 X10^3/uL; Basophil% 0.5 % (0-1); Eosinophil# 0.67 X10^3/uL; Eosinophils% 10.1 % (0-5); Hematocrit 37.7 % (37-47); Hemoglobin 12.3 g/dl (12.0-15.0); Lymphocyte # 2.61 X10^3/ul (4.0); Lymphocyte % 39.2 % (19-41); Mean Corp Hgb Conc 32.6 g/gl (32-36); Mean Corpuscular Hgb 29.9 pg (27.0-32.0); Mean Corpuscular Volume 91.7 fL (81-99); Mean Platelet Vol. 8.9 fl (6.2-12.0); Monocyte# 0.76 X10^3/uL; Monocyte% 11.4 % (0-10); Neutrophil # 2.57 X10^3/uL (2.7-7.7); Neutrophil % 38.5 % (47-70); Platelet Count 206 K/mm3 (150-450); RBC Distribution Width SD 47.3 fl (35.1-43.9); Red Blood Count 4.11 M/mm3 (4.2-5.4); White Blood Count 6.7 K/mm3 (4.4-11.0)
[2017-11-08 06:00] LABS: POSITIVE COUNT NO; POSITIVE DIFFERENTIAL NO; POSITIVE MORPHOLOGY NO
[2017-11-08 06:11] LABS: ALB/GLOB Ratio 0.7 RATIO (0.9-2.4); AST(SGOT) 26 U/L (15-37); Alanine Aminotransfer ALT/SGPT 33 U/L (13-56); Albumin, Serum 2.6 g/dL (3.2-5.0); Alkaline Phosphatase 101 U/L (45-117); Anion Gap 9 (5-15); BUN 11 mg/dL (7-18); BUN/Creat Ratio 22.7 RATIO (10-20); Calcium,Total 7.7 mg/dL (8.5-10.1); Chloride 111 mmol/L (98-107); Creatinine, Serum 0.48 mg/dL (0.55-1.02); EST Glomerular Filtration Rate 135 mL/min (>60); Est Glom Filt Rate - Afr Amer 164 mL/min (>60); Estimated Creatinine Clearance 48.45 ml/min; Globulin 3.7 g/dL (2.2-4.2); Glucose 86 mg/dL (74-106); Potassium 3.5 mmol/L (3.5-5.1); Protein, Total 6.3 g/dL (6.4-8.2); Sodium Level 143 mmol/L (136-145)
[2017-11-08] MEDS: Methadone 10 MG Tablet PO (06:13)
[2017-11-08 06:20] LABS: Bedside Glucose 90 mg/dL (70-110)
[2017-11-08] MEDS: Ipratropium/Albuterol Sulfate 3 ML AMPUL.NEB INHALATION ×2 (06:33→13:11)
[2017-11-08] MEDS: Phenytoin Na 100 MG Capsule PO ×2 (09:10→12:34)
[2017-11-08] MEDS: Gabapentin 300 MG Capsule PO ×2 (09:10→12:34)
[2017-11-08] MEDS: Pramipexole Di-HCl 1 MG Tablet PO (10:46)
[2017-11-08] MEDS: Enoxaparin 40 MG/0.4 ML Syringe SC (10:46)
[2017-11-08] MEDS: Famotidine 20 MG Tablet PO (10:46)
[2017-11-08] MEDS: Tolterodine Tartrate 4 MG CAP.SA PO (10:46)
[2017-11-08 11:41] LABS: Bedside Glucose 207 mg/dL (70-110)
--- NOTE | 2017-11-08 11:53 | PCM.DC ---
- Discharge Diagnoses Current Active Problems: Current Active and Chronic Problems Acidosis (Acute) Generalized weakness (Chronic) Debility (Chronic) You will use the following diet at home:: No restrictions Your food should be the consistency of: Regular Your liquids should be the consistency of: Regular/Thin Discharge Activity: Return to Normal Activity, - - stop smoking Allergies/Adverse Reactions: Allergies Penicillins Allergy (Verified 11/07/17 11:20) Anaphylaxis codeine Adverse Reaction (Verified 11/07/17 11:20) Nausea Medications to take at Discharge Albuterol Aerosols [Ventolin Aerosols] 2.5 mg INHALATION Q4H PRN 05/12/16 Albuterol IH (ProAir) [Proair Hfa] 2 puff INHALATION BID PRN 05/12/16 Alendronate Sodium [Fosamax] 70 mg PO FR 05/12/16 Calcium Carbonate/Vitamin D3 [Oyster Shell 500-Vit D3 200 Tb] 1 each PO DAILY 05/12/16 Etodolac 400 mg PO BID 05/12/16 Fluticasone/Salmeterol [Advair 250/50 Mcg Diskus] 2 puff INHALATION BID 05/12/16 Gabapentin [Neurontin] 300 mg PO BID 05/12/16 Phenytoin Na [Dilantin] 100 mg PO 4X/DAY 05/12/16 Ropinirole HCl [Requip] 2 mg PO QHS 05/12/16 Tolterodine Tartrate [Detrol LA] 4 mg PO QHS 05/12/16 Temazepam [Restoril] 30 mg PO QHS 06/24/17 Mirtazapine [Remeron] 15 mg PO QHS 07/03/17 Latanoprost 0.005% [Xalatan Opthalmic] 1 drop EACH EYE QHS 07/04/17 Furosemide [Lasix] 40 mg PO DAILY 09/04/17 Methadone HCl 10 mg PO TID 09/04/17 Hydrocortisone [Anusol Hc] 25 mg RECTAL TID PRN PRN #20 suppos. 09/05/17 Amlodipine [Norvasc] 2.5 mg PO DAILY 11/07/17 Clotrimazole [Lotrimin] 1 applicatio TOPICAL BID PRN PRN 11/07/17 Ergocalciferol [Vitamin D] 50,000 units PO MO 11/07/17 Phenobarbital 32.4 mg PO BID 11/07/17 Potassium Chloride [K-Dur] 20 meq PO DAILY 11/07/17 Pravastatin [Pravachol] 40 mg PO QHS 11/07/17 Ranitidine [Zantac] 300 mg PO DAILY 11/07/17 buPROPion SR [Wellbutrin SR (150mg tablets)] 150 mg PO BID 11/07/17 Primary Care Physician: Patel Veliz Chi, MD [Primary Care Provider] - Please follow up with your Primary Care Physician in: 1-2 weeks Please Follow Up With: Georgiana Andujar MD - call for appointment When: 1 week Proposed Discharge Date: 11/08/17
--- NOTE | 2017-11-08 11:56 | DCINST_ITS ---
- Discharge Diagnoses Current Active Problems: Current Active and Chronic Problems Acidosis (Acute) Generalized weakness (Chronic) Debility (Chronic) You will use the following diet at home:: No restrictions Your food should be the consistency of: Regular Your liquids should be the consistency of: Regular/Thin Discharge Activity: Return to Normal Activity, - - stop smoking Allergies/Adverse Reactions: Allergies Penicillins Allergy (Verified 11/07/17 11:20) Anaphylaxis codeine Adverse Reaction (Verified 11/07/17 11:20) Nausea Medications to take at Discharge Albuterol Aerosols [Ventolin Aerosols] 2.5 mg INHALATION Q4H PRN 05/12/16 Albuterol IH (ProAir) [Proair Hfa] 2 puff INHALATION BID PRN 05/12/16 Alendronate Sodium [Fosamax] 70 mg PO FR 05/12/16 Calcium Carbonate/Vitamin D3 [Oyster Shell 500-Vit D3 200 Tb] 1 each PO DAILY Etodolac 400 mg PO BID 05/12/16 Fluticasone/Salmeterol [Advair 250/50 Mcg Diskus] 2 puff INHALATION BID Gabapentin [Neurontin] 300 mg PO BID 05/12/16 Phenytoin Na [Dilantin] 100 mg PO 4X/DAY 05/12/16 Ropinirole HCl [Requip] 2 mg PO QHS 05/12/16 Tolterodine Tartrate [Detrol LA] 4 mg PO QHS 05/12/16 Temazepam [Restoril] 30 mg PO QHS 06/24/17 Mirtazapine [Remeron] 15 mg PO QHS 07/03/17 Latanoprost 0.005% [Xalatan Opthalmic] 1 drop EACH EYE QHS 07/04/17 Furosemide [Lasix] 40 mg PO DAILY 09/04/17 Methadone HCl 10 mg PO TID 09/04/17 Hydrocortisone [Anusol Hc] 25 mg RECTAL TID PRN PRN #20 suppos. 09/05/17 Amlodipine [Norvasc] 2.5 mg PO DAILY 11/07/17 Clotrimazole [Lotrimin] 1 applicatio TOPICAL BID PRN PRN 11/07/17 Ergocalciferol [Vitamin D] 50,000 units PO MO 11/07/17 Phenobarbital 32.4 mg PO BID 11/07/17 Potassium Chloride [K-Dur] 20 meq PO DAILY 11/07/17 Pravastatin [Pravachol] 40 mg PO QHS 11/07/17 Ranitidine [Zantac] 300 mg PO DAILY 11/07/17 buPROPion SR [Wellbutrin SR (150mg tablets)] 150 mg PO BID 11/07/17 Primary Care Physician: Patel Veliz Chi, MD [Primary Care Provider] - Please follow up with your Primary Care Physician in: 1-2 weeks Please Follow Up With: Georgiana Andujar MD - call for appointment When: 1 week Proposed Discharge Date: 11/08/17
--- NOTE | 2017-11-08 12:44 | PCM.DC.SUM ---
Discharge Date and Diagnosis - Problem List Patient Problems: Active and Suspected Problems Acidosis (Acute) Date of Admission: 11/07/17 Date of Discharge: 11/08/17 - Primary Discharge Diagnosis Active and Suspected Problems Metabolic Acidosis 2/2 not eating Generalized pain and debility 2/2 Chronic pain syndrome COPD without exacerbation Chronic hypoxic respiratory failure Debility Nicotine abuse Hx Seizures Osteoporosis - Secondary Discharge Diagnosis Chronic Problems Generalized weakness (Chronic) Debility (Chronic) Depression (Chronic) Insomnia (Chronic) She takes Temazepam every night for sleep, prescribed by Dr. Veliz Hypertension (Chronic) Physical debility (Chronic) Degenerative disc disease, lumbar (Chronic) Pain, chronic (Chronic) Seizure disorder (Chronic) Restless leg syndrome (Chronic) Obstructive sleep apnea (Chronic) non-compliant with CPAP but has oxygen to wear at night Smokes with greater than 40 pack year history (Chronic) Hospital Course and Treatment Imaging Results: RAD/Abdomen Single View IMPRESSION: Normal x-ray examination of the abdomen and pelvis. RAD/Chest PA and Lateral IMPRESSION: Hyperinflation. Operations: None Procedures: None Summary of Care Provided: Physical exam on day of discharge: General: Resting comfortably NAD Psych: A/Ox3 normal affect HEENT: PEARRLA AT NC Neck: Supple NT CV: RRR no m/t/r/g/h Resp: CTA Abd: [id number] Soft NT no guarding or rigidity Ext: DP2+= no edema Skin: W/D normal turgor Lymph/Heme: No active bleeding or adenopathy Neuro: CN2-12 intact Hospital course: The patient is a 67 year old F with a hx of chronic back pain, pt of Dr. Andujar, with a hx of COPD and chronic hypoxic respiratory failure who still smokes, who reported to the ER from her apartment with 3 days of pain all over and inability to tolerate PO. She was found to have mild acidosis but otherwise unremarkable labs, negative KUB, negative UA, negative CXR. Acidosis was felt to be related to not eating or drinking for 3 days prior. She was admitted and placed on fluids and antiemetics. She was able to tolerate a diet and her pain all over improved. The following morning her symptoms were all improved and her labs normalized. This was felt to be related to her chronic pain and close follow up with Dr. Basali was advised. She was discharged home in stable condition. This patient was seen by Tavo Patino PA-C under the supervision of Doctor Mando. [] Discharge Diet: No Restrictions Discharge Activity: Return to Normal Activity, - - stop smoking Home Medications: Medications to take at Discharge Albuterol Aerosols [Ventolin Aerosols] 2.5 mg INHALATION Q4H PRN 05/12/16 Albuterol IH (ProAir) [Proair Hfa] 2 puff INHALATION BID PRN 05/12/16 Alendronate Sodium [Fosamax] 70 mg PO FR 05/12/16 Calcium Carbonate/Vitamin D3 [Oyster Shell 500-Vit D3 200 Tb] 1 each PO DAILY 05/12/16 Etodolac 400 mg PO BID 05/12/16 Fluticasone/Salmeterol [Advair 250/50 Mcg Diskus] 2 puff INHALATION BID 05/12/16 Gabapentin [Neurontin] 300 mg PO BID 05/12/16 Phenytoin Na [Dilantin] 100 mg PO 4X/DAY 05/12/16 Ropinirole HCl [Requip] 2 mg PO QHS 05/12/16 Tolterodine Tartrate [Detrol LA] 4 mg PO QHS 05/12/16 Temazepam [Restoril] 30 mg PO QHS 06/24/17 Mirtazapine [Remeron] 15 mg PO QHS 07/03/17 Latanoprost 0.005% [Xalatan Opthalmic] 1 drop EACH EYE QHS 07/04/17 Furosemide [Lasix] 40 mg PO DAILY 09/04/17 Methadone HCl 10 mg PO TID 09/04/17 Hydrocortisone [Anusol Hc] 25 mg RECTAL TID PRN PRN #20 suppos. 09/05/17 Amlodipine [Norvasc] 2.5 mg PO DAILY 11/07/17 Clotrimazole [Lotrimin] 1 applicatio TOPICAL BID PRN PRN 11/07/17 Ergocalciferol [Vitamin D] 50,000 units PO MO 11/07/17 Phenobarbital 32.4 mg PO BID 11/07/17 Potassium Chloride [K-Dur] 20 meq PO DAILY 11/07/17 Pravastatin [Pravachol] 40 mg PO QHS 11/07/17 Ranitidine [Zantac] 300 mg PO DAILY 11/07/17 buPROPion SR [Wellbutrin SR (150mg tablets)] 150 mg PO BID 11/07/17 Primary Care Physician: Patel Veliz Chi, MD [Primary Care Provider] - Please follow up with your Primary Care Physician in: 1-2 weeks Please Follow Up With: Georgiana Andujar MD - call for appointment When: 1 week Disposition: Home Minutes spent on discharge:: 35 Patient Condition:: Stable Medical Necessity - Tobacco Use Smoking Status: Current every day smoker Tobacco Use: Cigarettes Meaningful Use Info Meaningful Use Diagnoses (Choose all that apply): None applicable
--- NOTE | 2017-11-08 12:51 | DS.PCM_ITS ---
Discharge Date and Diagnosis - Problem List Patient Problems: Active and Suspected Problems Acidosis (Acute) Date of Admission: 11/07/17 Date of Discharge: 11/08/17 - Primary Discharge Diagnosis Active and Suspected Problems Metabolic Acidosis 2/2 not eating Generalized pain and debility 2/2 Chronic pain syndrome COPD without exacerbation Chronic hypoxic respiratory failure Debility Nicotine abuse Hx Seizures Osteoporosis - Secondary Discharge Diagnosis Chronic Problems Generalized weakness (Chronic) Debility (Chronic) Depression (Chronic) Insomnia (Chronic) She takes Temazepam every night for sleep, prescribed by Dr. Veliz Hypertension (Chronic) Physical debility (Chronic) Degenerative disc disease, lumbar (Chronic) Pain, chronic (Chronic) Seizure disorder (Chronic) Restless leg syndrome (Chronic) Obstructive sleep apnea (Chronic) non-compliant with CPAP but has oxygen to wear at night Smokes with greater than 40 pack year history (Chronic) Hospital Course and Treatment Imaging Results: RAD/Abdomen Single View IMPRESSION: Normal x-ray examination of the abdomen and pelvis. RAD/Chest PA and Lateral IMPRESSION: Hyperinflation. Operations: None Procedures: None Summary of Care Provided: Physical exam on day of discharge: General: Resting comfortably NAD Psych: A/Ox3 normal affect HEENT: PEARRLA AT NC Neck: Supple NT CV: RRR no m/t/r/g/h Resp: CTA Abd: [id number] Soft NT no guarding or rigidity Ext: DP2+= no edema Skin: W/D normal turgor Lymph/Heme: No active bleeding or adenopathy Neuro: CN2-12 intact Hospital course: The patient is a 67 year old F with a hx of chronic back pain, pt of Dr. Andujar , with a hx of COPD and chronic hypoxic respiratory failure who still smokes, who reported to the ER from her apartment with 3 days of pain all over and inability to tolerate PO. She was found to have mild acidosis but otherwise unremarkable labs, negative KUB, negative UA, negative CXR. Acidosis was felt to be related to not eating or drinking for 3 days prior. She was admitted and placed on fluids and antiemetics. She was able to tolerate a diet and her pain all over improved. The following morning her symptoms were all improved and her labs normalized. This was felt to be related to her chronic pain and close follow up with Dr. Basali was advised. She was discharged home in stable condition. This patient was seen by Tavo Patino PA-C under the supervision of Doctor Mando. [] Discharge Diet: No Restrictions Discharge Activity: Return to Normal Activity, - - stop smoking Home Medications: Medications to take at Discharge Albuterol Aerosols [Ventolin Aerosols] 2.5 mg INHALATION Q4H PRN 05/12/16 Albuterol IH (ProAir) [Proair Hfa] 2 puff INHALATION BID PRN 05/12/16 Alendronate Sodium [Fosamax] 70 mg PO FR 05/12/16 Calcium Carbonate/Vitamin D3 [Oyster Shell 500-Vit D3 200 Tb] 1 each PO DAILY Etodolac 400 mg PO BID 05/12/16 Fluticasone/Salmeterol [Advair 250/50 Mcg Diskus] 2 puff INHALATION BID Gabapentin [Neurontin] 300 mg PO BID 05/12/16 Phenytoin Na [Dilantin] 100 mg PO 4X/DAY 05/12/16 Ropinirole HCl [Requip] 2 mg PO QHS 05/12/16 Tolterodine Tartrate [Detrol LA] 4 mg PO QHS 05/12/16 Temazepam [Restoril] 30 mg PO QHS 06/24/17 Mirtazapine [Remeron] 15 mg PO QHS 07/03/17 Latanoprost 0.005% [Xalatan Opthalmic] 1 drop EACH EYE QHS 07/04/17 Furosemide [Lasix] 40 mg PO DAILY 09/04/17 Methadone HCl 10 mg PO TID 09/04/17 Hydrocortisone [Anusol Hc] 25 mg RECTAL TID PRN PRN #20 suppos. 09/05/17 Amlodipine [Norvasc] 2.5 mg PO DAILY 11/07/17 Clotrimazole [Lotrimin] 1 applicatio TOPICAL BID PRN PRN 11/07/17 Ergocalciferol [Vitamin D] 50,000 units PO MO 11/07/17 Phenobarbital 32.4 mg PO BID 11/07/17 Potassium Chloride [K-Dur] 20 meq PO DAILY 11/07/17 Pravastatin [Pravachol] 40 mg PO QHS 11/07/17 Ranitidine [Zantac] 300 mg PO DAILY 11/07/17 buPROPion SR [Wellbutrin SR (150mg tablets)] 150 mg PO BID 11/07/17 Primary Care Physician: Patel Veliz Chi, MD [Primary Care Provider] - Please follow up with your Primary Care Physician in: 1-2 weeks Please Follow Up With: Georgiana Andujar MD - call for appointment When: 1 week Disposition: Home Minutes spent on discharge:: 35 Patient Condition:: Stable Medical Necessity - Tobacco Use Smoking Status: Current every day smoker Tobacco Use: Cigarettes Meaningful Use Info Meaningful Use Diagnoses (Choose all that apply): None applicable
--- NOTE | 2017-11-09 12:54 | CASEMGMT ---
RN CM DC call. Message left with pt's phone stating purpose of call and call back information if pt has questions re: dc instructions, medications or needs assist with f/u appointments. Jm OLIVON RN ACM
== END 2017-11-08 13:25 | disposition home or self-care (01) | DRG 641 ==
LOC: ED 12:54 → MS2 15:35
PROVIDERS: Admitting Provider Family Medicine; Emergency Provider Emergency Medicine; Family Provider Family Medicine Geriatric Medicine; PCP Family Medicine Geriatric Medicine; Visit Provider Internal Medicine
DX: E87.2 Acidosis (principal); J96.11 Chronic respiratory failure with hypoxia; E86.0 Dehydration; E16.2 Hypoglycemia, unspecified; G89.4 Chronic pain syndrome; J44.9 Chronic obstructive pulmonary disease, unspecified; F17.210 Nicotine dependence, cigarettes, uncomplicated; M81.0 Age-related osteoporosis without current pathological fracture; G40.909 Epilepsy, unspecified, not intractable, without status epilepticus; I10 Essential (primary) hypertension; M51.36 Other intervertebral disc degeneration, lumbar region; F51.04 Psychophysiologic insomnia; G47.33 Obstructive sleep apnea (adult) (pediatric); G25.81 Restless legs syndrome; F32.9 Major depressive disorder, single episode, unspecified; F41.9 Anxiety disorder, unspecified; K21.9 Gastro-esophageal reflux disease without esophagitis; K59.09 Other constipation; R63.8 Other symptoms and signs concerning food and fluid intake; Z79.891 Long term (current) use of opiate analgesic; Z79.899 Other long term (current) drug therapy; Z91.19 Patient's noncompliance with other medical treatment and regimen
CPT/HCPCS: 36415; 36600; 71046; 74018; 80053; 80184; 80185; 80307; 80320; 80329; 81001; 82009; 82140; 82803; 82962; 83605; 83690; 83735; 84100; 84484; 85025; 87633; 93005; 94640; 97162; 97165; 99285; 99406; J7030; P9612; A4216; G0480

== ENCOUNTER 2017-12-02 04:55 | Emergency (ER) | payer MEDICARE, SELFPAY ==
[2017-12-02 04:56] VITALS: BP 150/90; PULSE 82; RESP 20; TEMP 36.7; O2SAT 93; BMI 28.5
--- NOTE | 2017-12-02 05:18 | ED.VISSUMM ---
- ER Visit Summary Date of Service: 12/02/17 Chief Complaint: [] Bilateral leg and back pain History of Present Illness: The patient is a 67 F [] complaining of bilateral leg and back pain for years. She has been in pain management for last 2 years. Patient has a history of chronic pineal spinal stenosis. She takes methadone with her last dose at 2 AM. Her doctor decreased her methadone usage from 3 times per day down to twice per day just yesterday. She is unsure if that changed her tolerance of pain. This is similar type pain in her diffuse bilateral legs and low back. No loss of bowel or bladder function. No fevers or chills. No urinary symptoms. Physical Examination: Vital signs reviewed General: Well-nourished well-developed Head: Normocephalic atraumatic Eyes: Pupils equal round and reactive to light extraocular movements intact ENT: TMs clear no hemotympanum no trauma Neck: Nontender full range of motion Cardiovascular: Regular rate rhythm no murmurs normal S1-S2 Respiratory: No distress clear to auscultation bilaterally chest nontender Abdomen: Soft nontender nondistended normal bowel sounds no masses Back: Tenderness across the lower lumbar spine diffusely. No swelling deformity redness. Decreased range of motion secondary to pain Extremities: Decreased range of motion of the legs bilateral secondary to pain. Normal color and temperature. No mottling. Normal pulses. Skin: Normal color no trauma Neuro alert oriented cranial nerves II through XII intact normal strength sensation reflexes Test Results: [] Emergency Department Course and Treatment: [] Given injection of morphine intramuscular. Reevaluation her pain is almost completely resolved. She will follow-up with her pain management doctor. Given dose of Zofran for nausea. I think this is acute on chronic exacerbation of her chronic pain. I do not think she has a cauda equina syndrome. I do not think she has a vascular emergency. Treatment Plan: [] Disposition: [] Impression: [] Acute on chronic back pain Acute on chronic leg pain This note was generated with [employer] dictation software. It may contain incorrect words, spelling, and punctuation that were not noted in review of the chart prior to signing ED Disposition - Plan for ED Patient: Chief Complaint: Lower Extremity Injury Referrals: Patel Veliz Chi, MD [Primary Care Provider] -
[2017-12-02] MEDS: morphine 8 MG/ML Syringe IM (05:25)
--- NOTE | 2017-12-02 06:10 | ED.DEP ---
ED Disposition - Plan for ED Patient: Chief Complaint: Lower Extremity Injury Instructions: Relieving Back Pain Referrals: Patel Veliz Chi, MD [Primary Care Provider] - Georgiana Andujar MD [STAFF PHYSICIAN] -
[2017-12-02] MEDS: Ondansetron ODT 4 MG Tablet 8 MG PO (06:25)
[2017-12-02 07:31] VITALS: BP 142/78; PULSE 78; RESP 16; O2SAT 98
== END 2017-12-02 07:32 | disposition home or self-care (01) ==
LOC: ED 05:19
PROVIDERS: Emergency Provider Emergency Medicine; Family Provider Family Medicine Geriatric Medicine; PCP Family Medicine Geriatric Medicine
DX: M79.605 Pain in left leg (principal); M79.604 Pain in right leg; M54.5 Low back pain; G89.29 Other chronic pain; E66.9 Obesity, unspecified; J44.9 Chronic obstructive pulmonary disease, unspecified; G40.909 Epilepsy, unspecified, not intractable, without status epilepticus; Z68.28 Body mass index [BMI] 28.0-28.9, adult; Z79.891 Long term (current) use of opiate analgesic; Z79.899 Other long term (current) drug therapy; Z72.0 Tobacco use
CPT/HCPCS: 96372; 99284

== ENCOUNTER 2017-12-04 07:03 | Emergency (ER) | payer MEDICARE, SELFPAY ==
[2017-12-04 07:03] VITALS: BP 152/92; PULSE 94; RESP 24; TEMP 36.6; O2SAT 95; BMI 28.0
--- NOTE | 2017-12-04 07:10 | ED.DCSUM_ITS ---
- ER Visit Summary Date of Service: 12/04/17 Chief Complaint: Back pain History of Present Illness: The patient is a 67 F who presents with back pain. She states she has had this pain for years but got worse over the past couple of days. She was seen here 2 days ago given a dose of medications and told to follow-up with her pain management doctor. She continues to have this pain. Is from spinal stenosis. She is in pain management with Dr. Andujar. She takes methadone. She states it was recently cut from 3 times a day to 2 times a day. She denies any fever. No bowel or bladder incontinence. No numbness or tingling in her legs. Physical Examination: Vital signs reviewed. HEENT exam unremarkable. Heart is regular rate and rhythm without murmurs. Lungs are clear to auscultation. Abdomen is soft and nontender. Back exam reveals diffuse lumbar tenderness to palpation. Extremities reveal no edema. Skin exam normal. Neurologic exam normal, including reflexes.. Test Results: None performed Emergency Department Course and Treatment: Patient was given morphine and Norflex intramuscularly. She felt better. This is an acute exacerbation of her chronic pain. She has no red flag symptoms. I do not feel any imaging is necessary. I will treat her with Flexeril at home. She will need to follow-up with her pain management doctor Treatment Plan: [] Disposition: Discharge Impression: Acute on chronic low back pain This note was generated with [employer] dictation software. It may contain incorrect words, spelling, and punctuation that were not noted in review of the chart prior to signing ED Disposition - Plan for ED Patient: Chief Complaint: Back Referrals: Patel Veliz Chi, MD [Primary Care Provider] -
[2017-12-04] MEDS: morphine 8 MG/ML Syringe IM (07:13)
[2017-12-04] MEDS: Orphenadrine 60 MG/2 ML Ampul IM (07:13)
--- NOTE | 2017-12-04 07:20 | ED.RN ---
ASSISTED IN POSITION OF COMFORT. PLACED WARM BLANKET TO BACK TO HELP WITH PAIN. MEDS ADMINISTERED. RESTING IN BED. NO FURTHER NEEDS VOICED.
--- NOTE | 2017-12-04 07:48 | ED.DEP ---
ED Disposition - Plan for ED Patient: Disposition: Home or Assisted Living Chief Complaint: Back Instructions: ED Neck Back Pain General Prescriptions: Cyclobenzaprine [Flexeril] 10 mg PO TID PRN #20 tab PRN Reason: Muscle Spasm Referrals: Patel Veliz Chi, MD [Primary Care Provider] -
[2017-12-04 07:57] VITALS: BP 110/76; PULSE 68; RESP 18; TEMP 36.4; O2SAT 100
--- NOTE | 2017-12-04 08:00 | ED.RN ---
called son natan, to come pick pt up. assisted pt with getting dressed. reviewed dc instructions. no further needs or questions voiced.
== END 2017-12-04 08:26 | disposition home or self-care (01) ==
PROVIDERS: Emergency Provider Emergency Medicine; Family Provider Family Medicine Geriatric Medicine; PCP Family Medicine Geriatric Medicine
DX: M54.5 Low back pain (principal); G89.29 Other chronic pain; J44.9 Chronic obstructive pulmonary disease, unspecified; Z79.899 Other long term (current) drug therapy; Z79.891 Long term (current) use of opiate analgesic; Z72.0 Tobacco use
CPT/HCPCS: 96372; 99284

== ENCOUNTER 2017-12-20 10:42 | Emergency (ER) | payer MEDICARE, SELFPAY ==
[2017-12-20 10:45] VITALS: BP 125/83; PULSE 84; RESP 16; TEMP 37.4; O2SAT 97; BMI 29.2
[2017-12-20] MEDS: Orphenadrine 60 MG/2 ML Ampul IM (11:16)
[2017-12-20] MEDS: Ketorolac 30 MG/ML Syringe IM (11:16)
--- NOTE | 2017-12-20 12:19 | ED.DCSUM_ITS ---
- ER Visit Summary Date of Service: 12/20/17 Chief Complaint: Back pain History of Present Illness: The patient is a 67 F presenting for evaluation secondary to back pain. Patient has chronic history of back pain and is treated with methadone from pain managemen. Patient states about an hour ago she had sudden onset of lower back pain. It is diffuse across her lower back and radiates up into her back. No radiation to legs. No numbness weakness bowel or bladder incontinence fevers. Patient has no history of IV drug abuse. Patient states that the pain is worse with movement. She denies any injuries or lifting twisting pushing or pulling. Physical Examination: Vitals: Within normal limits General: Well-nourished well-developed no acute distress Head: Normocephalic atraumatic ENT: Moist mucous membranes Neck: Supple no JVD Cardiovascular: Heart regular rate and rhythm no murmurs Respiratory: Respirations nondistressed, lung sounds clear to auscultation bilaterally Abdominal: Soft, nontender, nondistended, normal bowel sounds, no evidence of abdominal masses or pulsatile mass Back: Normal to inspection, no midline tenderness to palpation, straight leg raise negative bilaterally, paraspinal tenderness bilaterally Extremities: Nontender, nonedematous, 2+ radial and PT pulses bilaterally symmetric Skin: Normal color no rash Neuro: 5/5 strength hip flexion, knee flexion, knee extension, dorsiflexion, plantarflexion, EHL. Sensation intact over all dermatomes of the lower extremities bilaterally, 2+ patellar and Achilles reflexes bilaterally symmetric , negative clonus bilaterally Test Results: None indicated Emergency Department Course and Treatment: Patient presented with an exacerbation of her chronic back pain. She has a normal neurologic exam, no red flag signs or symptoms no indication for neuroimaging at this point. Patient was treated with a dose of Toradol and Norflex in the emergency department repeat evaluation 1215 showed the patient to have significant improvement. Patient will be discharged with a muscle relaxant to be taken in addition to her home pain medication. She will follow-up with pain management. Disposition: Discharge Impression: 1. Acute on chronic back pain This note was generated with [employer] dictation software. It may contain incorrect words, spelling, and punctuation that were not noted in review of the chart prior to signing ED Disposition - Plan for ED Patient: Disposition: Home or Assisted Living Chief Complaint: Back Diagnosis: Back pain Instructions: ED Spasm Back No Trauma Prescriptions: Cyclobenzaprine [Flexeril] 10 mg PO TID PRN #20 tab PRN Reason: Muscle Spasm Referrals: Patel Veliz Chi, MD [Primary Care Provider] - 1 Week if not improving
[2017-12-20 12:36] VITALS: BP 131/75; PULSE 81; RESP 16; O2SAT 99
== END 2017-12-20 12:37 | disposition home or self-care (01) ==
PROVIDERS: Emergency Provider Emergency Medicine; Family Provider Family Medicine Geriatric Medicine; PCP Family Medicine Geriatric Medicine
DX: M54.5 Low back pain (principal); G89.29 Other chronic pain
CPT/HCPCS: 96372; 99284

== ENCOUNTER 2017-12-20 17:57 | Emergency (ER) | payer MEDICARE, SELFPAY ==
[2017-12-20 18:01] VITALS: BP 145/96; PULSE 95; RESP 18; TEMP 37.1; O2SAT 99; BMI 26.8
[2017-12-20 18:10] VITALS: PULSE 95; RESP 30; O2SAT 96
[2017-12-20 18:11] VITALS: O2SAT 97
--- NOTE | 2017-12-20 18:45 | EKG12_ITS ---
Test Reason : SOB Blood Pressure : / mmHG Vent. Rate : 087 BPM Atrial Rate : 087 BPM P-R Int : 158 ms QRS Dur : 098 ms QT Int : 392 ms P-R-T Axes : 072 -07 012 degrees QTc Int : 471 ms Normal sinus rhythm Low voltage QRS Borderline ECG Confirmed by LEONELA GONGORA MD ([id number]), acquisitions editor GOPI RAMIREZ ([id number]) on 12/22/2017 2:30:29 PM Referred By: TL Confirmed By:LEONELA GONGORA MD
--- NOTE | 2017-12-20 18:45 | RAD_ITS ---
STUDY: X-RAY CHEST REASON FOR EXAM: Female, 67 years old. Short of breath. COPD. TECHNIQUE: Frontal and lateral views of the chest. COMPARISON: 11/07/2017. FINDINGS: There is hyperinflation of the lungs consistent with chronic obstructive lung disease (COPD). No infiltrates or effusions. There is no demonstrated pleural abnormality. Normal size heart. Normal mediastinum and denae. Normal visualized pulmonary arteries. Normal visualized aortic arch and descending thoracic aorta. There are diffuse degenerative changes of the visualized thoracic spine. There is degenerative osteoarthritis of the bilateral shoulders. There is no demonstrated abnormality of the visualized soft tissue structures of the upper abdomen. RAD/Chest PA and Lateral IMPRESSION: There are findings consistent with COPD. There is no evidence of acute chest disease. Electronically Signed: Terrance Lara MD at 22:19 EDT , Service support ,
--- NOTE | 2017-12-20 18:51 | ED.VISSUMM ---
- ER Visit Summary Date of Service: 12/20/17 Chief Complaint: Dyspnea, cough History of Present Illness: The patient is a 67 F 1 month history cough, nonproductive. Worsening dyspnea prior to arrival, states wheezing. History of COPD on as needed oxygen. No fevers. Complains of sweats. States mild chest pain earlier secondary to cough. No nausea or vomiting. EMS reports 88% room air on arrival, status post aerosol treatment. No current wheezing. No further complaints. Physical Examination: General: Alert and oriented ?3, no acute distress HEENT: Normocephalic, atraumatic. Moist mucosa membranes Neck: supple, nontender. Cardiovascular: Regular rate and rhythm, no murmurs Respiratory: Normal breath sounds, symmetric, no distress Abdomen: Soft, nontender, nondistended Extremities: Nontender, no edema, pulses intact ?4 Neuro: no focal neurological deficits. Test Results: EKG: Sinus rate of 87, no ST or T wave changes. Chest x-ray: Negative. Labs White count 7.4, he will 13.4 per creatinine 0.54. Troponin negative. Emergency Department Course and Treatment: Patient presents with COPD history, O2 stable on arrival on room air. No current wheezing after aerosol from EMS. Treated Solu-Medrol, workup initiated. Cardiac workup negative. Chest x-ray negative. Reevaluation remained stable. Ambulated with a pulse ox remained stable at 94-96%. Complains of leg cramping, no history of gastric ulcers. Toradol given. Started on Zithromax for COPD exacerbation. MAURO score 0. Will be treated for 4 additional days of steroids and antibiotics. She will follow-up with her PCP, signs and symptoms discussed to return. All questions were answered. Treatment Plan: [] Disposition: Discharge Impression: 1. COPD exacerbation 2. Atypical chest pain This note was generated with [employer] dictation software. It may contain incorrect words, spelling, and punctuation that were not noted in review of the chart prior to signing ED Disposition - Plan for ED Patient: Disposition: Home or Assisted Living Chief Complaint: Shortness of Breath Diagnosis: COPD exacerbation, Atypical chest pain Instructions: ED COPD Flare, ED Chest Pain Atypical Unkn Cause Prescriptions: Azithromycin [Zithromax] 250 mg PO DAILY #4 tablet Prednisone [Deltasone] 60 mg PO DAILY #12 tablet Referrals: Patel Veliz Chi, MD [Primary Care Provider] - 3-5 Days
[2017-12-20 19:06] LABS: Absolute Lymphocyte Count 2.74 X10^3/ul (0.83-4.51); Absolute Neutrophil Count 3.7 X10^3/uL (2.0-7.7); Basophil# 0.04 X10^3/uL; Basophil% 0.5 % (0-1); Eosinophil# 0.09 X10^3/uL; Eosinophils% 1.2 % (0-5); Hematocrit 40.8 % (37-47); Hemoglobin 13.4 g/dl (12.0-15.0); Lymphocyte # 2.74 X10^3/ul (4.0); Lymphocyte % 37.1 % (19-41); Mean Corp Hgb Conc 32.8 g/gl (32-36); Mean Corpuscular Hgb 30.2 pg (27.0-32.0); Mean Corpuscular Volume 91.9 fL (81-99); Mean Platelet Vol. 9.7 fl (6.2-12.0); Monocyte# 0.79 X10^3/uL; Monocyte% 10.7 % (0-10); Neutrophil # 3.71 X10^3/uL (2.7-7.7); Neutrophil % 50.4 % (47-70); POSITIVE COUNT NO; POSITIVE DIFFERENTIAL NO; POSITIVE MORPHOLOGY NO; Platelet Count 233 K/mm3 (150-450); RBC Distribution Width CV 13.8 % (11.6-14.6); RBC Distribution Width SD 45.8 fl (35.1-43.9); Red Blood Count 4.44 M/mm3 (4.2-5.4); White Blood Count 7.4 K/mm3 (4.4-11.0)
[2017-12-20] MEDS: MethylPREDNISolone 125 MG/2 ML Vial IV (19:07)
[2017-12-20 19:30] LABS: Anion Gap 11 (5-15); BUN 17 mg/dL (7-18); BUN/Creat Ratio 31.2 RATIO (10-20); Calcium,Total 8.3 mg/dL (8.5-10.1); Chloride 106 mmol/L (98-107); Creatinine, Serum 0.54 mg/dL (0.55-1.02); EST Glomerular Filtration Rate 118 mL/min (>60); Est Glom Filt Rate - Afr Amer 143 mL/min (>60); Estimated Creatinine Clearance 48.45 ml/min; Glucose 84 mg/dL (74-106); Potassium 3.3 mmol/L (3.5-5.1); Sodium Level 143 mmol/L (136-145)
[2017-12-20 19:52] VITALS: O2SAT 97
[2017-12-20] MEDS: Ketorolac 30 MG/ML Syringe IV (19:57)
[2017-12-20] MEDS: Azithromycin 250 MG Tablet 500 MG PO (19:57)
[2017-12-20 20:16] VITALS: BP 139/72; PULSE 92; RESP 18; O2SAT 96
--- NOTE | 2017-12-20 20:22 | ED.RN ---
SON ASAD RAMIREZ CALLED, HE WILL BE IN GIVE PT RIDE HOME.
[2017-12-20 20:41] VITALS: BP 137/74; PULSE 79; RESP 17; O2SAT 96
== END 2017-12-20 20:42 | disposition home or self-care (01) ==
PROVIDERS: Emergency Provider Emergency Medicine; Family Provider Family Medicine Geriatric Medicine; PCP Family Medicine Geriatric Medicine
DX: J44.1 Chronic obstructive pulmonary disease with (acute) exacerbation (principal); R07.89 Other chest pain; G40.909 Epilepsy, unspecified, not intractable, without status epilepticus; Z79.899 Other long term (current) drug therapy; Z72.0 Tobacco use; M54.5 Low back pain; G89.29 Other chronic pain
CPT/HCPCS: 71046; 80048; 84484; 85025; 93005; 96372; 96374; 96375; 99284; 99285; A4216

== ENCOUNTER 2017-12-22 19:23 | Emergency (ER) | payer MEDICARE, SELFPAY ==
[2017-12-22 20:01] VITALS: BP 127/90; PULSE 106; RESP 22; TEMP 36.2; O2SAT 95; BMI 26.8
--- NOTE | 2017-12-22 22:20 | RAD_ITS ---
STUDY: X-RAY - ACUTE ABDOMINAL SERIES REASON FOR EXAM: Female, 67 years old. Constipation for 3 days TECHNIQUE: Single view of the chest. Supine, view(s) of the abdomen were obtained. COMPARISON: None. FINDINGS: No lung consolidation, pleural effusion or pneumothorax. No free air under the diaphragm. Slightly elevated right hemidiaphragm. Bowel gas pattern is nonobstructive and nonspecific. Fecal loading of colonic loops. Surgical clips in the right upper quadrant Scattered phleboliths. Right-sided hip arthroplasty. Degenerative changes in the lumbar spine as well as the sacroiliac joints. Degenerative changes in the left hip joint. IMPRESSION: No definite evidence for small bowel obstruction seen. No free air under the diaphragm. Fecal loading of colonic loops Electronically Signed: Yordy Walter, at 23:53 EDT Tel , Service support , RAD/Acute Abdomen Inc Chest
[2017-12-22] MEDS: HYDROmorphone 1 MG/ML Syringe IM (22:36)
--- NOTE | 2017-12-22 23:34 | ED.VISSUMM ---
- ER Visit Summary Date of Service: 12/22/17 Chief Complaint: Constipation History of Present Illness: The patient is a [address] Veliz and Dr. Andujar. She is on methadone for spinal stenosis. She reports that she is constipated and has not had a bowel movement 3 days. Typically she goes daily. She complains of diffuse crampy abdominal pain is 10 out of 10 severity. Is worsened by nothing relieved by nothing. No nausea or vomiting. No dysuria or frequency. Physical Examination: Vitals: Stable. Afebrile. General: Well-nourished and well-developed. Head: Normocephalic atraumatic. Neck: Supple, no lymphadenopathy. No JVD. Nontender. Cardiovascular: Regular rate and rhythm. No murmurs. Respiratory: No respiratory distress. Clear to auscultation bilaterally. Abdominal: Soft, mild diffuse tenderness to palpation, nondistended, normal bowel sounds. No guarding, rebound, or peritoneal signs. Back: Nontender. Extremities: Nontender, no edema. Skin: Normal color, no rash. Neurologic: Alert and oriented ?3. Cranial nerves II through XII are intact. Normal strength and sensation. Psych: Normal affect. Test Results: Three-view of the abdomen shows a nonspecific bowel gas pattern. Emergency Department Course and Treatment: Patient was treated with Dilaudid IM. She refused a fleets enema. Treatment Plan: Patient will be discharged with magnesium citrate. Instructed follow-up Dr. Zhu in 1-2 days if not improving. Return to the emergency department for any worsening symptoms. Disposition: To home in improved and stable condition. Impression: 1. Constipation. This note was generated with [employer] dictation software. It may contain incorrect words, spelling, and punctuation that were not noted in review of the chart prior to signing ED Disposition - Plan for ED Patient: Chief Complaint: Constipation Instructions: ED Constipation Referrals: Patel Veliz Chi, MD [Primary Care Provider] - 1-2 Days if not improving
[2017-12-22] MEDS: Magnesium Citrate 300 ML PO (23:58)
[2017-12-22 23:59] VITALS: BP 105/89; PULSE 85; RESP 12; O2SAT 98
== END 2017-12-23 | disposition home or self-care (01) ==
PROVIDERS: Emergency Provider Emergency Medicine; Family Provider Family Medicine Geriatric Medicine; PCP Family Medicine Geriatric Medicine
DX: K59.00 Constipation, unspecified (principal); J44.9 Chronic obstructive pulmonary disease, unspecified; G40.909 Epilepsy, unspecified, not intractable, without status epilepticus; M48.00 Spinal stenosis, site unspecified; Z79.899 Other long term (current) drug therapy; Z72.0 Tobacco use
CPT/HCPCS: 74022; 96372; 99284

== ENCOUNTER 2018-01-30 06:28 | Emergency (ER) | payer MEDICARE, SELFPAY ==
[2018-01-30 06:30] VITALS: BP 127/52; PULSE 93; RESP 16; TEMP 37.3; O2SAT 94; BMI 26.2
[2018-01-30] MEDS: Dicyclomine 10 MG Capsule 20 MG PO (07:17)
--- NOTE | 2018-01-30 07:23 | ED.DCSUM_ITS ---
- ER Visit Summary Date of Service: 01/30/18 Chief Complaint: Abdominal pain History of Present Illness: The patient is a 67 F who presents the emergency department with abdominal pain. She states that she hurts all over and is globally weak. The patient states she has not had a bowel movement somewhere between 2 and 4 days. It is not clear because she gets a different answer each time he asked her. She states that her body feels like she stuck her finger into a light socket. Patient denies any fever. She has chronic pain is on methadone. Her most recent ER visit was also for constipation in December (1 month ago). No recent seizures. No URI symptoms. No diarrhea or vomiting. Physical Examination: Afebrile vital signs are stable Gen: Well-nourished well-developed patient rolls around in the bed and kicks her legs and moans. She is able to stop this and converse normally. Head: Normocephalic atraumatic Eyes: Perrl EOMI ENT: TMs clear no rhinorrhea moist mucous membranes Neck: Supple no lymphadenopathy no JVD nontender CVS: Regular rate rhythm no murmurs normal S1-S2 Respiratory: No distress clear to auscultation bilaterally chest nontender Abdomen: Soft diffusely tender without guarding or rebound nondistended normal bowel sounds no masses Back: Nontender Extremity: Nontender no edema Skin: Normal color no rash Neuro: alert orientated ?3 CN II-XII intact normal strength sensation reflexes gait cerebellar Psych: Dramatic affect Test Results: KUB demonstrates a nonspecific bowel gas pattern. There is no fecal impaction. Emergency Department Course and Treatment: Patient received Bentyl here in the department. She will be treated at home with magnesium citrate. Impression: 1. Constipation This note was generated with [employer] dictation software. It may contain incorrect words, spelling, and punctuation that were not noted in review of the chart prior to signing ED Disposition - Plan for ED Patient: Disposition: Home or Assisted Living Chief Complaint: Abd Pain Instructions: ED Constipation Prescriptions: Magnesium Citrate [Citrate Of Magnesia] 300 ml PO X1 #2 bottle Referrals: Patel Veliz Chi, MD [Primary Care Provider] - 1-2 Days if not improving
[2018-01-30 08:32] VITALS: BP 119/80; PULSE 80; RESP 16; O2SAT 98
== END 2018-01-30 08:37 | disposition home or self-care (01) ==
PROVIDERS: Emergency Provider Emergency Medicine; Family Provider Family Medicine Geriatric Medicine; PCP Family Medicine Geriatric Medicine
DX: K59.00 Constipation, unspecified (principal); I10 Essential (primary) hypertension; J44.9 Chronic obstructive pulmonary disease, unspecified; G40.909 Epilepsy, unspecified, not intractable, without status epilepticus; G25.81 Restless legs syndrome; Z79.899 Other long term (current) drug therapy; Z72.0 Tobacco use
CPT/HCPCS: 74018; 99284; A4216

== ENCOUNTER 2018-02-01 14:08 | Emergency (ER) | payer MEDICARE, SELFPAY ==
[2018-02-01 14:09] VITALS: BP 151/116; PULSE 108; RESP 17; TEMP 37.2; O2SAT 96; BMI 26.6
--- NOTE | 2018-02-01 14:30 | ED.RN ---
Dr. Simeon notified that patient in large amount of pain and states she has not urinated in [address] ordered [address] dupree cath. IV started with blood and urine in lab. Patient continues to be in pain. Awaiting patient to be seen by .
[2018-02-01 15:16] VITALS: BP 140/96; O2SAT 95
[2018-02-01] MEDS: Ondansetron 4 MG/2 ML Vial IV (15:23)
[2018-02-01] MEDS: HYDROmorphone 1 MG/ML Syringe IV (15:23)
[2018-02-01 15:31] LABS: Bacteria 0 SEEN /hpf (None Seen); Mucous, Urine 0 SEEN /hpf (<or=2+); Red Blood Cells-Urine 0 SEEN /hpf (0-5); Squamous Epithelial Cells - UA 0 SEEN /hpf (5-10); White Blood Cells 0 SEEN /hpf (0-5)
[2018-02-01 15:32] LABS: Absolute Lymphocyte Count 1.75 X10^3/ul (0.83-4.51); Absolute Neutrophil Count 6.6 X10^3/uL (2.0-7.7); Basophil# 0.02 X10^3/uL; Basophil% 0.2 % (0-1); Eosinophils% 1.1 % (0-5); Hematocrit 43.8 % (37-47); Hemoglobin 14.4 g/dl (12.0-15.0); Lymphocyte # 1.75 X10^3/ul (4.0); Lymphocyte % 19.1 % (19-41); Mean Corp Hgb Conc 32.9 g/gl (32-36); Mean Corpuscular Hgb 31.2 pg (27.0-32.0); Mean Corpuscular Volume 94.8 fL (81-99); Mean Platelet Vol. 10.7 fl (6.2-12.0); Monocyte# 0.72 X10^3/uL; Monocyte% 7.8 % (0-10); Neutrophil # 6.58 X10^3/uL (2.7-7.7); Neutrophil % 71.7 % (47-70); Platelet Count 201 K/mm3 (150-450); RBC Distribution Width SD 47.2 fl (35.1-43.9); Red Blood Count 4.62 M/mm3 (4.2-5.4); White Blood Count 9.2 K/mm3 (4.4-11.0)
[2018-02-01 15:33] LABS: Color, Urine Yellow (Yellow); Glucose, Dipstick Normal (Normal); Ketone-Dipstick Negative (Negative); Leukocyte Esterase-Dipstick Negative /ul (Negative); Nitrite-Dipstick Negative (Negative); Occult Blood-Urine Negative /ul (Negative); Protein-Dipstick Negative (Negative); Urine Bilirubin Dipstick Negative (Negative); Urine Clarity Clear (Clear); Urine Urobilinogen Normal (Normal)
[2018-02-01 15:37] LABS: POSITIVE COUNT NO; POSITIVE DIFFERENTIAL NO; POSITIVE MORPHOLOGY NO
[2018-02-01 15:47] LABS: Anion Gap 7 (5-15); BUN 11 mg/dL (7-18); BUN/Creat Ratio 17.5 RATIO (10-20); Calcium,Total 8.3 mg/dL (8.5-10.1); Chloride 109 mmol/L (98-107); Creatinine, Serum 0.63 mg/dL (0.55-1.02); EST Glomerular Filtration Rate 100 mL/min (>60); Est Glom Filt Rate - Afr Amer 121 mL/min (>60); Estimated Creatinine Clearance 48.45 ml/min; Glucose 167 mg/dL (74-106); Potassium 3.6 mmol/L (3.5-5.1); Sodium Level 144 mmol/L (136-145)
--- NOTE | 2018-02-01 15:56 | ED.DCSUM_ITS ---
- ER Visit Summary Date of Service: 02/01/18 Chief Complaint: Constipation and back pain History of Present Illness: The patient is a [address] Andujar and Dr. Veliz. She reports that her last problem was 4 days ago and the typically she goes daily. She drank 2 bottles of magnesium citrate 2 days ago without any relief. She reports that she is on methadone for chronic back pain and that she has not taken this for the past 3 days because of her constipation. She reports that she has been on methadone for approximately 5 years. She reports that she has had problems with constipation in the past, but not as severe as this. Patient complains of an aching lower back pain that is 10 out of 10 severity. Is worsened by movement and relieved by methadone. States that radiates the in the back of both legs to the level of her feet. She denies any numbness or weakness. No problems with her bladder. No recent trauma. No fall, MVA, or change in activity. Patient reports that she has diffuse abdominal pain is 9 out of 10 in severity and describes this as sharp. She is nauseated, but has not vomited. She denies any fever or chills. No other complaints. Physical Examination: Vitals: Stable. Afebrile. General: A&O x 3. NAD. Cardiovascular exam: Regular rate and rhythm, no murmur, rub or gallop. Respiratory exam: Clear to auscultation bilaterally. No wheezes or stridor. Abdominal exam: Soft, nontender, nondistended, normal bowel sounds. No peritoneal signs. Back: Diffuse moderate tenderness to palpation over the lumbar spine and the paraspinous musculature in the lumbar region. No point tenderness. Negative straight leg bilaterally. 5/5 DF, PF, EHL bilaterally. Normal sensation to light touch throughout. Extremity: No clubbing, cyanosis, or edema. 2+ dorsalis pedis pulse bilaterally. Test Results: CBC is remarkable for segmented neutrophils of 72. Chem-7 more for chloride 109, glucose 167, calcium 8.3. UA is negative. KUB shows minimal stool and a nonspecific bowel gas pattern. Emergency Department Course and Treatment: Patient had an IV placed. She was given dose of Dilaudid and Zofran IV. She had a soapsuds enema with no results. Treatment Plan: Had a prolonged discussion the patient that her abdominal pain is not from constipation. I suggested that she restart her methadone and that withdrawal from this alone can cause abdominal pain. She is instructed to follow-up with Dr. Zhu tomorrow as previously scheduled. Return to the emergency department for any worsening symptoms. Disposition: To home in improved and stable condition. Impression: 1. Chronic back pain. 2. Abdominal pain. This note was generated with [employer] dictation software. It may contain incorrect words, spelling, and punctuation that were not noted in review of the chart prior to signing ED Disposition - Plan for ED Patient: Disposition: Home or Assisted Living Chief Complaint: Back Instructions: ED Neck Back Pain General Referrals: Patel Veliz Chi, MD [Primary Care Provider] - Keep Niurka appointment
== END 2018-02-01 17:46 | disposition home or self-care (01) ==
LOC: ED 15:16
PROVIDERS: Emergency Provider Emergency Medicine; Family Provider Family Medicine Geriatric Medicine; PCP Family Medicine Geriatric Medicine
DX: M54.5 Low back pain (principal); G89.29 Other chronic pain; R10.9 Unspecified abdominal pain; K59.00 Constipation, unspecified; J44.9 Chronic obstructive pulmonary disease, unspecified; G40.909 Epilepsy, unspecified, not intractable, without status epilepticus; Z79.891 Long term (current) use of opiate analgesic; Z79.899 Other long term (current) drug therapy; Z72.0 Tobacco use
CPT/HCPCS: 51702; 74022; 80048; 81001; 85025; 99285; J7030; J7040; A4216; J2405

== ENCOUNTER 2018-02-24 07:03 | Emergency (ER) | payer MEDICARE, SELFPAY ==
[2018-02-24 07:04] VITALS: BP 139/123; PULSE 92; RESP 20; TEMP 36.9; O2SAT 96; BMI 27.0
[2018-02-24] MEDS: 0.9% Normal Saline 1,000 ML 1000 ML IV (08:03)
[2018-02-24] MEDS: Morphine 4 MG/ML Syringe IV (08:04)
[2018-02-24] MEDS: Ondansetron 4 MG/2 ML Vial IV (08:04)
[2018-02-24] MEDS: Dicyclomine 20 MG/2 ML Vial IM (08:04)
--- NOTE | 2018-02-24 08:14 | ED.VISSUMM ---
- ER Visit Summary Date of Service: 02/24/18 Chief Complaint: Abdominal pain History of Present Illness: The patient is a 67 F who presents with abdominal pain that has been getting worse over the past 3 days. Patient states the pain is gradually gotten worse. Patient describes her pain as aching. Patient states her pain is diffuse across her abdomen. Patient admits to some nausea but denies any vomiting. Patient denies any diarrhea. Patient admits to some urinary frequency but denies any dysuria. Patient denies any back pain. Physical Examination: Vital signs are stable. Patient is afebrile. Patient is in no acute distress. Oral mucosa is pink and moist. Neck is supple. Trachea is midline. There is no JVD noted. Heart was regular rate and rhythm. Lungs are clear and equal bilaterally. There is good respiratory effort noted. Abdomen is soft. There is mild diffuse tenderness. There is no rebound or guarding noted. Cranial nerves II through XII are intact. There are no focal motor or sensory deficits noted. The remaining physical exam is within normal limits. Test Results: CBC, comprehensive metabolic profile, lipase, and urinalysis were obtained were all essentially within normal limits. CT scan of the abdomen and pelvis with oral and IV contrast was obtained. There is dilatation of the biliary ducts and common bile duct to the ampulla of Vater. Emergency Department Course and Treatment: Patient was given IV fluids, Bentyl, morphine, and Zofran here. Patient felt better on reevaluation. Patient was instructed to follow-up with her primary care physician in 3-5 days. Patient was also given a referral for outpatient follow-up with surgery for possible ERCP. Patient understands and is agreeable with the plan. All questions were answered. Disposition: Discharge home Impression: Abdominal pain This note was generated with [employer] dictation software. It may contain incorrect words, spelling, and punctuation that were not noted in review of the chart prior to signing ED Disposition - Plan for ED Patient: Disposition: Home or Assisted Living Chief Complaint: Abd Pain Diagnosis: Epigastric abdominal pain of unknown etiology Instructions: ED Abdominal Pain Unkn Cause Referrals: Patel Veliz Chi, MD [Primary Care Provider] -
[2018-02-24 08:22] LABS: Color, Urine Yellow (Yellow); Glucose, Dipstick Normal (Normal); Ketone-Dipstick 50 mg/dl (Negative); Leukocyte Esterase-Dipstick 25 /ul (Negative); Nitrite-Dipstick Negative (Negative); Occult Blood-Urine Negative /ul (Negative); Protein-Dipstick Negative (Negative); Urine Clarity Sl. Cloudy (Clear); Urine Urobilinogen Normal (Normal)
[2018-02-24 08:26] LABS: Urine Bilirubin Dipstick 6 mg/dL (Negative)
[2018-02-24 08:30] LABS: Bacteria RARE /hpf (None Seen); Mucous, Urine RARE /hpf (<or=2+); Red Blood Cells-Urine 0-5 SEEN /hpf (0-5); Squamous Epithelial Cells - UA 0-5 SEEN /hpf (5-10); White Blood Cells 0-5 SEEN /hpf (0-5)
[2018-02-24 08:33] LABS: ALB/GLOB Ratio 0.8 RATIO (0.9-2.4); AST(SGOT) 18 U/L (15-37); Alanine Aminotransfer ALT/SGPT 20 U/L (13-56); Albumin, Serum 3.1 g/dL (3.2-5.0); Alkaline Phosphatase 66 U/L (45-117); Anion Gap 8 (5-15); BUN 12 mg/dL (7-18); BUN/Creat Ratio 21.8 RATIO (10-20); Calcium,Total 8.5 mg/dL (8.5-10.1); Chloride 109 mmol/L (98-107); Creatinine, Serum 0.55 mg/dL (0.55-1.02); EST Glomerular Filtration Rate 117 mL/min (>60); Est Glom Filt Rate - Afr Amer 141 mL/min (>60); Estimated Creatinine Clearance 48.45 ml/min; Globulin 3.9 g/dL (2.2-4.2); Glucose 113 mg/dL (74-106); Lipase 47 U/L (73-393); Potassium 3.8 mmol/L (3.5-5.1); Sodium Level 140 mmol/L (136-145)
[2018-02-24 08:44] LABS: Absolute Neutrophil Count 2.6 X10^3/uL (2.0-7.7); Basophil# 0.02 X10^3/uL; Basophil% 0.4 % (0-1); Eosinophil# 0.22 X10^3/uL; Eosinophils% 4.2 % (0-5); Hematocrit 38.9 % (37-47); Hemoglobin 12.5 g/dl (12.0-15.0); Lymphocyte % 38.2 % (19-41); Mean Corp Hgb Conc 32.1 g/gl (32-36); Mean Corpuscular Hgb 30.2 pg (27.0-32.0); Monocyte# 0.42 X10^3/uL; Neutrophil # 2.58 X10^3/uL (2.7-7.7); Neutrophil % 49.2 % (47-70); POSITIVE COUNT NO; POSITIVE DIFFERENTIAL NO; POSITIVE MORPHOLOGY NO; Platelet Count 197 K/mm3 (150-450); RBC Distribution Width SD 47.9 fl (35.1-43.9); Red Blood Count 4.14 M/mm3 (4.2-5.4); White Blood Count 5.2 K/mm3 (4.4-11.0)
[2018-02-24 10:05] VITALS: BP 100/45; PULSE 76; RESP 16; O2SAT 97
[2018-02-24 11:20] VITALS: BP 109/35; PULSE 63; RESP 18; O2SAT 95
--- NOTE | 2018-02-24 11:23 | ED.RN ---
shannan Nuno will be coming in 1/2 hr to pick up worker pt
== END 2018-02-24 11:32 | disposition home or self-care (01) ==
PROVIDERS: Emergency Provider Emergency Medicine; Family Provider Family Medicine Geriatric Medicine; PCP Family Medicine Geriatric Medicine
DX: R10.9 Unspecified abdominal pain (principal); R11.0 Nausea; Z90.49 Acquired absence of other specified parts of digestive tract; Z72.0 Tobacco use
CPT/HCPCS: 36415; 74177; 80053; 81001; 83690; 85025; 96361; 96372; 96374; 96375; 99285; J7030; P9612; Q9967; A4216; J2405

== ENCOUNTER 2018-03-05 13:56 | Inpatient (IN) | payer MEDICARE, SELFPAY ==
[2018-03-05] VITALS (11 sets, daily range): BP systolic 92–151; BP diastolic 48–120; PULSE 58–93; RESP 12–19; TEMP 37.3–39.1; O2SAT 89–96; BMI 31.4; BMI 25.5
--- NOTE | 2018-03-05 14:07 | EKG12_ITS ---
Test Reason : Blood Pressure : / mmHG Vent. Rate : 083 BPM Atrial Rate : 083 BPM P-R Int : 148 ms QRS Dur : 100 ms QT Int : 350 ms P-R-T Axes : 070 044 -27 degrees QTc Int : 411 ms Normal sinus rhythm Poor R wave progression Nonspecific T wave abnormality Abnormal ECG Confirmed by JAMES LEACH, LUZ ([id number]), rewrite editor GOPI ARMIREZ ([id number] on 03/08/2018 2:37:54 PM Referred By: APRIL Confirmed By:LUZ RAMIREZ MD
--- NOTE | 2018-03-05 14:08 | RAD_ITS ---
STUDY: X-RAY CHEST REASON FOR EXAM: Female, 67 years old. Fever, headache. TECHNIQUE: Single frontal view of the chest. COMPARISON: February 01, 2018 FINDINGS: The lungs remain hyperinflated. There is no new focal consolidation. Normal size heart. Normal mediastinum and denae. Normal visualized pulmonary arteries. Normal visualized aortic arch and descending thoracic aorta. Normal visualized thoracic spine. Normal visualized ribs, clavicles, and shoulders. There is no demonstrated abnormality of the visualized soft tissue structures of the upper abdomen. RAD/Chest 1 View (Portable) IMPRESSION: Stable examination demonstrating no acute cardiopulmonary process. Electronically Signed: Elsie Umaña MD at 15:33 EDT Tel , Service support ,
--- NOTE | 2018-03-05 14:15 | CT_ITS ---
STUDY: CT BRAIN WITHOUT CONTRAST REASON FOR EXAM: Female, 67 years old. Headache. RADIATION DOSAGE (If Supplied By Facility): CTDIvol = ( 44.99 ) mGy, DLP = ( 1490.98 ) mGycm TECHNIQUE: Transaxial CT imaging of the brain was performed without administration of intravenous contrast material. There is motion artifact. Individualized dose optimization techniques were used for this CT. COMPARISON: None. FINDINGS: Normal soft tissue structures. Normal calvarium. Normal size ventricles and extra-axial spaces for the patient's age. There are areas of decreased attenuation within the white matter tracts of the supratentorial brain, consistent with microvascular disease changes. Normal basal ganglia and thalami. Normal brainstem. There is mild cerebellar atrophy. There is no intracranial hemorrhage. There are no findings of an acute ischemic infarction. Normal visualized paranasal sinuses. CT/Brain/Head without Contrast IMPRESSION: Chronic involutional changes of the brain. Electronically Signed: Ang Mazariegos MD at 15:29 EDT , Service support ,
--- NOTE | 2018-03-05 14:33 | ED.DCSUM_ITS ---
- ER Visit Summary Date of Service: 03/05/18 Chief Complaint: [] Temperature of 102 diffuse body aches History of Present Illness: The patient is a 67 F [] patient reports history of seizure disorder no other past history walks stating she felt fine had breakfast and she developed a fever to 102 at the [facility] and diffuse body aches and headaches and came in for evaluation. She has had no runny nose no change in vision no neck stiffness no cough or chest pain or shortness of breath no abdominal pain normal bowel bladder habits, no skin lesions no obvious exposures, she indicates she is not prone to high fevers this all began suddenly she is eating and drinking well no recent seizures no obvious exposures at the [facility] Physical Examination: [] Pressure is 102.4 she is awake and alert she is complaining of diffuse body aches HEENT exam is unremarkable her nose is dry throat is unremarkable her neck is very supple her lungs are clear heart tones are normal the abdomen soft nontender upper lower extremity skin exam back exam unremarkable she denies urinary symptoms or skin lesions no meningismus no Kernig's or Brudzinski's she is awake and alert answering questions Test Results: [] Emergency Department Course and Treatment: [] Fever of the differential is rather extensive screening labs blood cultures urine cultures UA IV fluids Tylenol The patient's head CT is generally unremarkable as his chest x-ray and labs except her troponin came back at 0.29 she denies chest pain, she is feeling better with regards to the headache and the body aches, she has no flu type symptoms such as runny nose or cough or shortness of breath, again she denies chest pain she indicates she has no history of CAD or OR. The EKG showed a sinus rhythm nonspecific changes no acute injury pattern appreciated, given the lack of obvious source of the fever we will hold on antibiotics blood and urine cultures were sent, given the abnormal troponin however I have asked the hospital see her for further management admission, management as clinically warranted Treatment Plan: [] Disposition: [] Stable admit Impression: [] Febrile illness etiology unclear, abnormal troponin This note was generated with [employer] dictation software. It may contain incorrect words, spelling, and punctuation that were not noted in review of the chart prior to signing ED Disposition - Plan for ED Patient: Chief Complaint: Headache Referrals: Patel Veliz Chi, MD [Primary Care Provider] -
[2018-03-05] MEDS: Acetaminophen 500 MG Tablet 1000 MG PO (14:57)
[2018-03-05] MEDS: Ondansetron 4 MG/2 ML Vial IV (14:57)
[2018-03-05] MEDS: morphine 8 MG/ML Syringe IV ×2 (14:57→16:13)
[2018-03-05 15:17] LABS: Absolute Lymphocyte Count 1.44 X10^3/ul (0.83-4.51); Absolute Neutrophil Count 6.6 X10^3/uL (2.0-7.7); Basophil# 0.01 X10^3/uL; Basophil% 0.1 % (0-1); Hemoglobin 14.1 g/dl (12.0-15.0); Lymphocyte # 1.44 X10^3/ul (4.0); Mean Corp Hgb Conc 32.8 g/gl (32-36); Mean Corpuscular Hgb 30.2 pg (27.0-32.0); Mean Corpuscular Volume 92.1 fL (81-99); Mean Platelet Vol. 10.5 fl (6.2-12.0); Monocyte# 0.46 X10^3/uL; Monocyte% 5.4 % (0-10); Neutrophil # 6.55 X10^3/uL (2.7-7.7); Neutrophil % 77.3 % (47-70); Platelet Count 242 K/mm3 (150-450); RBC Distribution Width CV 14.2 % (11.6-14.6); RBC Distribution Width SD 47.7 fl (35.1-43.9); Red Blood Count 4.67 M/mm3 (4.2-5.4); White Blood Count 8.5 K/mm3 (4.4-11.0)
[2018-03-05 15:26] LABS: Anion Gap 13 (5-15); BUN 15 mg/dL (7-18); BUN/Creat Ratio 25.3 RATIO (10-20); Calcium,Total 8.7 mg/dL (8.5-10.1); Chloride 102 mmol/L (98-107); Creatinine, Serum 0.59 mg/dL (0.55-1.02); EST Glomerular Filtration Rate 107 mL/min (>60); Est Glom Filt Rate - Afr Amer 129 mL/min (>60); Estimated Creatinine Clearance 48.45 ml/min; Glucose 133 mg/dL (74-106); Potassium 3.3 mmol/L (3.5-5.1); Sodium Level 139 mmol/L (136-145)
[2018-03-05 15:32] LABS: POSITIVE COUNT NO; POSITIVE DIFFERENTIAL NO; POSITIVE MORPHOLOGY NO
[2018-03-05 15:34] LABS: Bacteria 0 SEEN /hpf (None Seen); Squamous Epithelial Cells - UA 0 SEEN /hpf (5-10)
[2018-03-05 15:36] LABS: Lactic Acid 1.3 mmol/L (0.4-2.0)
[2018-03-05 15:39] LABS: Color, Urine Yellow (Yellow); Glucose, Dipstick Normal (Normal); Leukocyte Esterase-Dipstick 25 /ul (Negative); Nitrite-Dipstick Negative (Negative); Occult Blood-Urine 25 /ul (Negative); Protein-Dipstick 30 mg/dl (Negative); Urine Clarity Clear (Clear); Urine Urobilinogen 1 mg/dl (Normal); Urine pH 6.5 (5.0 - 8.0)
[2018-03-05 15:43] LABS: Urine Bilirubin Dipstick 3 mg/dL (Negative)
[2018-03-05 15:44] LABS: Ketone-Dipstick 150 mg/dl (Negative)
[2018-03-05 15:47] LABS: Mucous, Urine 3+ /hpf (<or=2+); Red Blood Cells-Urine 0-5 SEEN /hpf (0-5); White Blood Cells 0-5 SEEN /hpf (0-5)
[2018-03-05 15:57] LABS: BNP,B-Type NATRIURETIC PEPTIDE 181.1 pg/mL (0-100)
[2018-03-05] MEDS: Ketorolac 30 MG/ML Syringe IV (16:13)
--- NOTE | 2018-03-05 16:28 | PCM.HP.STD ---
Problem List (1) Viral illness Status: Acute (2) Cardiac enzymes elevated Status: Acute (3) Tobacco use Status: Chronic (4) Insomnia Status: Chronic Qualifiers: Insomnia type: unspecified Qualified Code(s): G47.00 - Insomnia, unspecified Comment: She takes Temazepam every night for sleep, prescribed by Dr. Veliz (5) Hypertension Status: Chronic Qualifiers: Hypertension type: essential hypertension Qualified Code(s): I10 - Essential (primary) hypertension (6) Degenerative disc disease, lumbar Status: Chronic (7) Pain, chronic Status: Chronic Qualifiers: Chronic pain type: chronic pain syndrome Qualified Code(s): G89.4 - Chronic pain syndrome (8) Seizure disorder Status: Chronic (9) Restless leg syndrome Status: Chronic (10) COPD (chronic obstructive pulmonary disease) Status: Chronic Qualifiers: COPD type: unspecified COPD Qualified Code(s): J44.9 - Chronic obstructive pulmonary disease, unspecified Comment: 1 ppd now smoker 4 ppd (11) Obstructive sleep apnea Status: Chronic Comment: non-compliant with CPAP but has oxygen to wear at night History of Present Illness Date of Admission: 03/05/18 Chief Complaint: Body aches, Fever, Chills, Arthralgia, Headache The patient is a 67 y/o F w/ PMHx: Seizure disorder, Restless leg, CHUY noncompliant with CPAP, Chronic Hypoxic Respiratory Failure (2L NC q HS only), Tobacco use, Chronic COPD, Chronic pain syndrome, Hypertension, Anxiety and Depression/Insomnia who presents to the [facility] ED on 03/05/18 with history of onset whole body aches, arthralgias, fever, chills, throbbing bilateral temporal headache starting at approximately noon with general malaise and fatigue with no recent ill contacts. In the ED workup included T102.3, heart rate 93, BP 139/77, respiratory rate 18, 86% on room air, CBC with WBCs 8.5, hemoglobin 14.1, platelet 242 without market left shift, BMP with potassium 3.3, glucose 133, lactic acid 1.3, troponin 0 0.290, BNP 181.1, CT head with no acute findings, chest x-ray with chronic changes and no acute findings. 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 Discussed patient w/ the ED physician and given these acute findings with sudden onset requested respiratory viral panel with suspected possible flu. Past Medical History Past Medical History (Chronic Problems): Chronic Problems (Last Reviewed 02/07/18 @ 14:36 by Crystal Ibanez) Tobacco use (Chronic) Generalized weakness (Chronic) Debility (Chronic) Depression (Chronic) Insomnia (Chronic) She takes Temazepam every night for sleep, prescribed by Dr. Veliz Hypertension (Chronic) Physical debility (Chronic) Degenerative disc disease, lumbar (Chronic) Pain, chronic (Chronic) Seizure disorder (Chronic) Restless leg syndrome (Chronic) COPD (chronic obstructive pulmonary disease) (Chronic) 1 ppd now smoker 4 ppd Obstructive sleep apnea (Chronic) non-compliant with CPAP but has oxygen to wear at night Smokes with greater than 40 pack year history (Chronic) Medical History: Medical History (Last Reviewed 02/07/18 @ 14:36 by Crystal Ibanez) Acidosis (Acute) E87.2 Generalized weakness (Chronic) R53.1 Debility (Chronic) R53.81 Acute and chronic respiratory failure with hypoxia (Acute) J96.21 Nicotine abuse (Acute) Z72.0 Acute respiratory failure with hypercapnia (Acute) J96.02 Acute respiratory failure with hypoxia and hypercapnia (Acute) J96.01, J96.02 Acute exacerbation of chronic obstructive airways disease (Acute) J44.1 Hypokalemia (Acute) E87.6 Subtherapeutic serum dilantin level (Acute) R78.89 Subtherapeutic phenobarb level (Acute) Depression (Chronic) F32.9 Insomnia (Chronic) G47.00 She takes Temazepam every night for sleep, prescribed by Dr. Veliz Hypertension (Chronic) I10 Fever (Acute) R50.9 Physical debility (Chronic) R53.81 Degenerative disc disease, lumbar (Chronic) M51.36 Pain, chronic (Chronic) G89.29 Seizure disorder (Chronic) G40.909 Restless leg syndrome (Chronic) COPD (chronic obstructive pulmonary disease) (Acute) J44.9 1 ppd now smoker 4 ppd Obstructive sleep apnea (Chronic) G47.33 non-compliant with CPAP but has oxygen to wear at night Smokes with greater than 40 pack year history (Chronic) F17.210 Allergies Penicillins Allergy (Verified 03/05/18 13:59) Anaphylaxis codeine Adverse Reaction (Verified 03/05/18 13:59) Nausea Home Medications: Ambulatory Orders Medication Instructions Recorded Albuterol Aerosols [Ventolin 2.5 mg INHALATION Q4H PRN 05/12/16 Aerosols] Alendronate Sodium [Fosamax] 70 mg PO FR 05/12/16 Calcium Carbonate/Vitamin D3 1 ea PO DAILY 05/12/16 [Oyster Shell 500-Vit D3 200 Tb] Etodolac 400 mg PO BID 05/12/16 Fluticasone/Salmeterol [Advair 2 puff INHALATION BID 05/12/16 250/50 Mcg Diskus] Gabapentin [Neurontin] 300 mg PO BID 05/12/16 Phenytoin Na [Dilantin] 100 mg PO 4X/DAY 05/12/16 Ropinirole HCl [Requip] 2 mg PO QHS 05/12/16 Tolterodine Tartrate [Detrol LA] 4 mg PO QHS 05/12/16 Temazepam [Restoril] 30 mg PO QHS 06/24/17 Mirtazapine [Remeron] 15 mg PO QHS 07/03/17 Latanoprost 0.005% [Xalatan 1 drp EACH EYE QHS 07/04/17 Opthalmic] Furosemide [Lasix] 40 mg PO DAILY 09/04/17 Methadone HCl 10 mg PO TID 09/04/17 Amlodipine [Norvasc] 2.5 mg PO DAILY 11/07/17 Clotrimazole [Lotrimin] 1 applicatio TOPICAL BID PRN PRN 11/07/17 Ergocalciferol [Vitamin D] 50,000 units PO MO 11/07/17 Phenobarbital 32.4 mg PO BID 11/07/17 Potassium Chloride [K-Dur] 20 meq PO DAILY 11/07/17 Pravastatin [Pravachol] 40 mg PO QHS 11/07/17 Ranitidine [Zantac] 300 mg PO DAILY 11/07/17 buPROPion SR [Wellbutrin SR (150mg 150 mg PO BID 11/07/17 tablets)] Cyclobenzaprine [Flexeril] 10 mg PO TID PRN #20 tab 12/20/17 Surgical History: Surgical History (Last Reviewed 02/07/18 @ 14:36 by Crystal Ibanez) History of right hip replacement (Acute) Z96.641 Broken ankle (Acute) S82.899A S/P laparoscopic cholecystectomy (Acute) Z90.49 S/P appendectomy (Acute) Z90.49 Surgical History: appendectomy, cholecystectomy, - - Fractured right ankle, carpal tunnel surgery, removal of teeth, right ovariectomy and fallopian tube removal. 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 Tobacco Use: Cigarettes Alcohol: None Drugs: None - *Family History Maternal Family History: Family History (Last Updated 02/07/18 @ 14:39 by Crystal Ibanez) Mother Diabetes Heart disease Hypertension CAD (coronary artery disease) CVA (cerebral vascular accident) History Items: Diabetes Paternal Family History: Family History (Last Updated 02/07/18 @ 14:39 by Crystal Ibanez) Mother Diabetes Heart disease Hypertension CAD (coronary artery disease) CVA (cerebral vascular accident) History Items: Cancer - colon Sibling Family History: Family History (Last Updated 02/07/18 @ 14:39 by Crystal Ibanez) Mother Diabetes Heart disease Hypertension CAD (coronary artery disease) CVA (cerebral vascular accident) History Items: No pertinent history Review of Systems Constitutional: Reports: Anorexia, Chills, Fever, Malaise, Weakness, Fatigue. Denies: Weight Change HEENT: Reports: Head Aches. Denies: Sinus Congestion, Sinus Drainage Cardiovascular: Denies: Chest Pain, Palpitations Respiratory: Denies: Cough, Shortness of breath at rest, Sputum production Gastrointestinal: Denies: Abdominal Pain, Nausea, Vomiting Genitourinary: Denies: Dysuria Musculoskeletal: Reports: Joint Tenderness, Muscle pain. Denies: Joint Pain Skin: Denies: Rash, Wounds Neurological: Denies: Numbness, Tingling, Focal weakness Psychiatric: Reports: Anxiety, Depression. Denies: Homicidal Ideations, Suicidal Ideations Hematologic/ Lymphatic: Denies: Easy Bruising, Easy Bleeding VTE Information - Inpt Only VTE Present on Admission: No VTE Mechan Device Prophylaxis: SCD's VTE Pharm Prophylaxis ordered?: Yes Patient Problems: Active and Suspected Problems (Last Reviewed 02/07/18 @ 14:36 by Crystal Ibanez) Viral illness (Acute) Cardiac enzymes elevated (Acute) Subjective: Seated upright in the ED bed, very focal regarding her arthralgias and myalgias. Objective: Physical Examination: General: awake, alert, oriented x 3 and cooperative, seated upright in the ED bed, severe ongoing arthralgia and myalgias. Skin: normal color, turgor, no icterus, cyanosis. HEENT: AT/NC, EOMI, PERRLA, moderately MM, OP w/ mild posterior erythema, no carotid bruits or JVD noted, no facial TTP. Lungs: Diminished BS BL, > bases, mild effort, no rales, ronchi or wheezing. Heart: Regular rate and rhythm; no gallop, rub audible. Abdomen: soft, NTTP, ND, unremarkable BS, no HSM. Extremities: no cyanosis, clubbing, edema. Neurological: patient awake, alert, oriented x 3; cognitive function intact; pupils equally reactive to light and accomodation; cranial nerves II-XII grossly normal, moving all 4 extremities, no focal deficits, strength severely globally decreased secondary to acute presentation, noting ongoing subjective whole body pain, BL tenriism SAENZ w/ TTP. Psychiatric: affect appears mildly histrionic, no acute evidence of depressive or anxiety feelings. - Physical Exam Vital Signs Temp Pulse Resp BP Pulse Ox 102.3 F H 80 13 117/63 94 03/05/18 13:57 03/05/18 16:06 03/05/18 16:06 03/05/18 16:06 03/05/18 16:06 Oxygen Delivery Method Room Air Weight: 189 lb Body Mass Index (BMI) 31.4 Laboratory Tests Past 24 Hrs 03/05/18 03/05/18 03/05/18 14:50 14:50 14:50 WBC 8.5 RBC 4.67 Hgb 14.1 Hct 43.0 MCV 92.1 MCH 30.2 MCHC 32.8 RDW 14.2 RDW Differential 47.7 H Plt Count 242 MPV 10.5 Immature Gran % (Auto) 0.200 Neut % (Auto) 77.3 H Lymph % (Auto) 17.0 L [place] % (Auto) 5.4 Eos % (Auto) 0.0 Baso % (Auto) 0.1 Absolute Neuts (auto) 6.6 Absolute Lymphs (auto) 1.44 Total Counted Not Reportable Sodium 139 Potassium 3.3 L Chloride 102 Carbon Dioxide 24.0 Anion Gap 13 BUN 15 Creatinine 0.59 Estim Creat Clear Calc 48.45 Est GFR (MDRD) Af Amer 129 Est GFR (MDRD) Non-Af 107 BUN/Creatinine Ratio 25.3 H Glucose 133 H Lactic Acid Calcium 8.7 Troponin I 0.290 H B-Natriuretic Peptide 181.1 H Urine Color Urine Clarity Urine pH Ur Specific [place] Urine Protein Urine Glucose (UA) Urine Ketones Urine Occult Blood Urine Nitrite Urine Bilirubin Urine Urobilinogen Ur Leukocyte Esterase Urine RBC Urine WBC Ur Squamous Epith Cells Urine Bacteria Urine Mucus 03/05/18 03/05/18 14:50 15:29 WBC RBC Hgb Hct MCV MCH MCHC RDW RDW Differential Plt Count MPV Immature Gran % (Auto) Neut % (Auto) Lymph % (Auto) [place] % (Auto) Eos % (Auto) Baso % (Auto) Absolute Neuts (auto) Absolute Lymphs (auto) Total Counted Sodium Potassium Chloride Carbon Dioxide Anion Gap BUN Creatinine Estim Creat Clear Calc Est GFR (MDRD) Af Amer Est GFR (MDRD) Non-Af BUN/Creatinine Ratio Glucose Lactic Acid 1.3 Calcium Troponin I B-Natriuretic Peptide Urine Color Yellow Urine Clarity Clear Urine pH 6.5 Ur Specific [place] 1.020 Urine Protein 30 H Urine Glucose (UA) Normal Urine Ketones 150 H Urine Occult Blood 25 H Urine Nitrite Negative Urine Bilirubin 3 H Urine Urobilinogen 1 H Ur Leukocyte Esterase 25 H Urine RBC 0-5 SEEN Urine WBC 0-5 SEEN Ur Squamous Epith Cells 0 SEEN Urine Bacteria 0 SEEN Urine Mucus 3+ Assessment/Plan All Active Problems (Last Reviewed 02/07/18 @ 14:36 by Crystal Ibanez) Viral illness (Acute) Cardiac enzymes elevated (Acute) History of right hip replacement (Acute) Broken ankle (Acute) S/P laparoscopic cholecystectomy (Acute) S/P appendectomy (Acute) Acidosis (Acute) Acute and chronic respiratory failure with hypoxia (Acute) Nicotine abuse (Acute) Acute respiratory failure with hypercapnia (Acute) Acute respiratory failure with hypoxia and hypercapnia (Acute) Acute exacerbation of chronic obstructive airways disease (Acute) Hypokalemia (Acute) Subtherapeutic serum dilantin level (Acute) Subtherapeutic phenobarb level (Acute) Fever (Acute) Fracture of left great toe (Resolved) Frequent falls (Resolved) The patient is a 67 y/o F w/ PMHx: Seizure disorder, Restless leg, CHUY noncompliant with CPAP, Chronic Hypoxic Respiratory Failure (2L NC q HS only), Tobacco use, Chronic COPD, Chronic pain syndrome, Hypertension, Anxiety and Depression/Insomnia who presents to the [facility] ED on 03/05/18 with history of onset whole body aches, arthralgias, fever, chills, throbbing bilateral temporal headache starting at approximately noon with general malaise and fatigue with no recent ill contacts. (1) General Malaise,Fever, General Debility suspected secondary to Acute Viral Syndrome, Possible Influenza Viral Syndrome: CBC with WBCs 8.5, hemoglobin 14.1, platelet 242 without market left shift, BMP with potassium 3.3, glucose 133, lactic acid 1.3, troponin 0.290, BNP 181.1, CT head with no acute findings, chest x-ray with chronic changes and no acute findings. Bld Cx x 2 obtained in the ED. UA unremarkable. Pending respiratory viral panel. Will admit to PCU as concurrent elevation cardiac enzymes, maintain on oxygen with wean as tolerated, continue ATC duonebs, PRN albuterol, HOB, IS parameters. (2) Indeterminate cardiac enzyme: EKG in ED w/ specific T-wave changes, CXR w/ COPD changes with no acute findings. Trop elevated, 0.290. Will maintain on a monitored bed, continue serial cardiac enzymes and EKGs. Obtain magnesium level upon admission. Administer therapeutic lovenox pending trend and if stable then transition back to prophylactic dose. Continue medical management w/ asa addition, defer BB given severe underlying COPD history, continue home statin w/ AM FLP. ECHO requested. If further elevation may consider Cardiology consultation. Will be out of to have respiratory viral panel returned as may be possible flu prior to considerations for further intervention. ASA, NG, morphine. (3) Chronic COPD w/ Chronic Hypoxic Respiratory Failure: Continue home O2 supplementation q HS, continue ATC duonebs, PRN albuterol, HOB, IS parameters. (4) Tobacco Abuse: Encouraged cessation, inpatient consultation per RT, NR if desired but declined upon presentation. (5) Seizure disorder: Continue home regimen Dilantin and phenobarbital, Dilantin. (6) Chronic Pain Syndrome: Maintain on patient home methadone and gabapentin regimen regimen. (7) Anxiety and Depression: Maintain on home Wellbutrin, Remeron, Restoril regimen although preference would be to avoid usage of to sedate of p.m. regimens but specific note in system per PCP for continuation. (8) HTN: Maintain on home regimen of Norvasc, Lasix, withhold as needed, PRN oral hydralazine. (9) Hyperlipidemia: Continue home statin regimen. AM FLP. (10) CHUY: CPAP q HS. (11) RLS: Maintain on home requip regimen. (12) GERD: Famotidine. (13) DVT Prophylaxis: SCDs, therapeutic lovenox pending cardiac enzyme trend. Code Visit Inpatient E&M: 57404 Init Hosp L3
--- NOTE | 2018-03-05 16:34 | HP.PCM_ITS ---
Problem List (1) Viral illness Status: Acute (2) Cardiac enzymes elevated Status: Acute (3) Tobacco use Status: Chronic (4) Insomnia Status: Chronic Qualifiers: Insomnia type: unspecified Qualified Code(s): G47.00 - Insomnia, unspecified Comment: She takes Temazepam every night for sleep, prescribed by Dr. Veliz (5) Hypertension Status: Chronic Qualifiers: Hypertension type: essential hypertension Qualified Code(s): I10 - Essential (primary) hypertension (6) Degenerative disc disease, lumbar Status: Chronic (7) Pain, chronic Status: Chronic Qualifiers: Chronic pain type: chronic pain syndrome Qualified Code(s): G89.4 - Chronic pain syndrome (8) Seizure disorder Status: Chronic (9) Restless leg syndrome Status: Chronic (10) COPD (chronic obstructive pulmonary disease) Status: Chronic Qualifiers: COPD type: unspecified COPD Qualified Code(s): J44.9 - Chronic obstructive pulmonary disease, unspecified Comment: 1 ppd now smoker 4 ppd (11) Obstructive sleep apnea Status: Chronic Comment: non-compliant with CPAP but has oxygen to wear at night History of Present Illness Date of Admission: 03/05/18 Chief Complaint: Body aches, Fever, Chills, Arthralgia, Headache The patient is a 67 y/o F w/ PMHx: Seizure disorder, Restless leg, CHUY noncompliant with CPAP, Chronic Hypoxic Respiratory Failure (2L NC q HS only), Tobacco use, Chronic COPD, Chronic pain syndrome, Hypertension, Anxiety and Depression/Insomnia who presents to the [facility] ED on 03/05/18 with history of onset whole body aches, arthralgias, fever, chills, throbbing bilateral temporal headache starting at approximately noon with general malaise and fatigue with no recent ill contacts. In the ED workup included T102.3, heart rate 93, BP 139 /77, respiratory rate 18, 86% on room air, CBC with WBCs 8.5, hemoglobin 14.1, platelet 242 without market left shift, BMP with potassium 3.3, glucose 133, lactic acid 1.3, troponin 0 0.290, BNP 181.1, CT head with no acute findings, chest x-ray with chronic changes and no acute findings. 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 Discussed patient w/ the ED physician and given these acute findings with sudden onset requested respiratory viral panel with suspected possible flu. Past Medical History Past Medical History (Chronic Problems): Chronic Problems (Last Reviewed 02/07/18 @ 14:36 by Crystal Ibanez) Tobacco use (Chronic) Generalized weakness (Chronic) Debility (Chronic) Depression (Chronic) Insomnia (Chronic) She takes Temazepam every night for sleep, prescribed by Dr. Veliz Hypertension (Chronic) Physical debility (Chronic) Degenerative disc disease, lumbar (Chronic) Pain, chronic (Chronic) Seizure disorder (Chronic) Restless leg syndrome (Chronic) COPD (chronic obstructive pulmonary disease) (Chronic) 1 ppd now smoker 4 ppd Obstructive sleep apnea (Chronic) non-compliant with CPAP but has oxygen to wear at night Smokes with greater than 40 pack year history (Chronic) Medical History: Medical History (Last Reviewed 02/07/18 @ 14:36 by Crystal Ibanez) Acidosis (Acute) E87.2 Generalized weakness (Chronic) R53.1 Debility (Chronic) R53.81 Acute and chronic respiratory failure with hypoxia (Acute) J96.21 Nicotine abuse (Acute) Z72.0 Acute respiratory failure with hypercapnia (Acute) J96.02 Acute respiratory failure with hypoxia and hypercapnia (Acute) J96.01, J96.02 Acute exacerbation of chronic obstructive airways disease (Acute) J44.1 Hypokalemia (Acute) E87.6 Subtherapeutic serum dilantin level (Acute) R78.89 Subtherapeutic phenobarb level (Acute) Depression (Chronic) F32.9 Insomnia (Chronic) G47.00 She takes Temazepam every night for sleep, prescribed by Dr. Veliz Hypertension (Chronic) I10 Fever (Acute) R50.9 Physical debility (Chronic) R53.81 Degenerative disc disease, lumbar (Chronic) M51.36 Pain, chronic (Chronic) G89.29 Seizure disorder (Chronic) G40.909 Restless leg syndrome (Chronic) COPD (chronic obstructive pulmonary disease) (Acute) J44.9 1 ppd now smoker 4 ppd Obstructive sleep apnea (Chronic) G47.33 non-compliant with CPAP but has oxygen to wear at night Smokes with greater than 40 pack year history (Chronic) F17.210 Allergies Penicillins Allergy (Verified 03/05/18 13:59) Anaphylaxis codeine Adverse Reaction (Verified 03/05/18 13:59) Nausea Home Medications: Ambulatory Orders Medication Instructions Recorded Albuterol Aerosols [Ventolin 2.5 mg INHALATION Q4H PRN 05/12/16 Aerosols] Alendronate Sodium [Fosamax] 70 mg PO FR 05/12/16 Calcium Carbonate/Vitamin D3 1 ea PO DAILY 05/12/16 [Oyster Shell 500-Vit D3 200 Tb] Etodolac 400 mg PO BID 05/12/16 Fluticasone/Salmeterol [Advair 2 puff INHALATION BID 05/12/16 250/50 Mcg Diskus] Gabapentin [Neurontin] 300 mg PO BID 05/12/16 Phenytoin Na [Dilantin] 100 mg PO 4X/DAY 05/12/16 Ropinirole HCl [Requip] 2 mg PO QHS 05/12/16 Tolterodine Tartrate [Detrol LA] 4 mg PO QHS 05/12/16 Temazepam [Restoril] 30 mg PO QHS 06/24/17 Mirtazapine [Remeron] 15 mg PO QHS 07/03/17 Latanoprost 0.005% [Xalatan 1 drp EACH EYE QHS 07/04/17 Opthalmic] Furosemide [Lasix] 40 mg PO DAILY 09/04/17 Methadone HCl 10 mg PO TID 09/04/17 Amlodipine [Norvasc] 2.5 mg PO DAILY 11/07/17 Clotrimazole [Lotrimin] 1 applicatio TOPICAL BID PRN PRN 11/07/17 Ergocalciferol [Vitamin D] 50,000 units PO MO 11/07/17 Phenobarbital 32.4 mg PO BID 11/07/17 Potassium Chloride [K-Dur] 20 meq PO DAILY 11/07/17 Pravastatin [Pravachol] 40 mg PO QHS 11/07/17 Ranitidine [Zantac] 300 mg PO DAILY 11/07/17 buPROPion SR [Wellbutrin SR (150mg 150 mg PO BID 11/07/17 tablets)] Cyclobenzaprine [Flexeril] 10 mg PO TID PRN #20 tab 12/20/17 Surgical History: Surgical History (Last Reviewed 02/07/18 @ 14:36 by Crystal Ibanez) History of right hip replacement (Acute) Z96.641 Broken ankle (Acute) S82.899A S/P laparoscopic cholecystectomy (Acute) Z90.49 S/P appendectomy (Acute) Z90.49 Surgical History: appendectomy, cholecystectomy, - - Fractured right ankle, carpal tunnel surgery, removal of teeth, right ovariectomy and fallopian tube removal. Psychiatric History: Anxiety, Depression - untreated [employer]ICE G[employer] History: No pertinent [employer] history Lives: Alone Smoking Status: Current every day smoker - 1 ppd ongong. Tobacco Use: Cigarettes Alcohol: None Drugs: None - *Family History Maternal Family History: Family History (Last Updated 02/07/18 @ 14:39 by Crystal Ibanez) Mother Diabetes Heart disease Hypertension CAD (coronary artery disease) CVA (cerebral vascular accident) History Items: Diabetes Paternal Family History: Family History (Last Updated 02/07/18 @ 14:39 by Crystal Ibanez) Mother Diabetes Heart disease Hypertension CAD (coronary artery disease) CVA (cerebral vascular accident) History Items: Cancer - colon Sibling Family History: Family History (Last Updated 02/07/18 @ 14:39 by Crystal Ibanez) Mother Diabetes Heart disease Hypertension CAD (coronary artery disease) CVA (cerebral vascular accident) History Items: No pertinent history Review of Systems Constitutional: Reports: Anorexia, Chills, Fever, Malaise, Weakness, Fatigue. Denies: Weight Change HEENT: Reports: Head Aches. Denies: Sinus Congestion, Sinus Drainage Cardiovascular: Denies: Chest Pain, Palpitations Respiratory: Denies: Cough, Shortness of breath at rest, Sputum production Gastrointestinal: Denies: Abdominal Pain, Nausea, Vomiting Genitourinary: Denies: Dysuria Musculoskeletal: Reports: Joint Tenderness, Muscle pain. Denies: Joint Pain Skin: Denies: Rash, Wounds Neurological: Denies: Numbness, Tingling, Focal weakness Psychiatric: Reports: Anxiety, Depression. Denies: Homicidal Ideations, Suicidal Ideations Hematologic/ Lymphatic: Denies: Easy Bruising, Easy Bleeding VTE Information - Inpt Only VTE Present on Admission: No VTE Mechan Device Prophylaxis: SCD's VTE Pharm Prophylaxis ordered?: Yes Patient Problems: Active and Suspected Problems (Last Reviewed 02/07/18 @ 14:36 by Crystal Ibanez) Viral illness (Acute) Cardiac enzymes elevated (Acute) Subjective: Seated upright in the ED bed, very focal regarding her arthralgias and myalgias. Objective: Physical Examination: General: awake, alert, oriented x 3 and cooperative, seated upright in the ED bed, severe ongoing arthralgia and myalgias. Skin: normal color, turgor, no icterus, cyanosis. HEENT: AT/NC, EOMI, PERRLA, moderately MM, OP w/ mild posterior erythema, no carotid bruits or JVD noted, no facial TTP. Lungs: Diminished BS BL, > bases, mild effort, no rales, ronchi or wheezing. Heart: Regular rate and rhythm; no gallop, rub audible. Abdomen: soft, NTTP, ND, unremarkable BS, no HSM. Extremities: no cyanosis, clubbing, edema. Neurological: patient awake, alert, oriented x 3; cognitive function intact; pupils equally reactive to light and accomodation; cranial nerves II-XII grossly normal, moving all 4 extremities, no focal deficits, strength severely globally decreased secondary to acute presentation, noting ongoing subjective whole body pain, BL presybeterian SAENZ w/ TTP. Psychiatric: affect appears mildly histrionic, no acute evidence of depressive or anxiety feelings. - Physical Exam Vital Signs Temp Pulse Resp BP Pulse Ox 102.3 F H 80 13 117/63 94 03/05/18 13:57 03/05/18 16:06 03/05/18 16:06 03/05/18 16:06 03/05/18 16:06 Oxygen Delivery Method Room Air Weight: 189 lb Body Mass Index (BMI) 31.4 Laboratory Tests Past 24 Hrs 03/05/18 03/05/18 03/05/18 14:50 14:50 14:50 WBC 8.5 RBC 4.67 Hgb 14.1 Hct 43.0 MCV 92.1 MCH 30.2 MCHC 32.8 RDW 14.2 RDW Differential 47.7 H Plt Count 242 MPV 10.5 Immature Gran % (Auto) 0.200 Neut % (Auto) 77.3 H Lymph % (Auto) 17.0 L [place] % (Auto) 5.4 Eos % (Auto) 0.0 Baso % (Auto) 0.1 Absolute Neuts (auto) 6.6 Absolute Lymphs (auto) 1.44 Total Counted Not Reportable Sodium 139 Potassium 3.3 L Chloride 102 Carbon Dioxide 24.0 Anion Gap 13 BUN 15 Creatinine 0.59 Estim Creat Clear Calc 48.45 Est GFR (MDRD) Af Amer 129 Est GFR (MDRD) Non-Af 107 BUN/Creatinine Ratio 25.3 H Glucose 133 H Lactic Acid Calcium 8.7 Troponin I 0.290 H B-Natriuretic Peptide 181.1 H Urine Color Urine Clarity Urine pH Ur Specific [place] Urine Protein Urine Glucose (UA) Urine Ketones Urine Occult Blood Urine Nitrite Urine Bilirubin Urine Urobilinogen Ur Leukocyte Esterase Urine RBC Urine WBC Ur Squamous Epith Cells Urine Bacteria Urine Mucus 03/05/18 03/05/18 14:50 15:29 WBC RBC Hgb Hct MCV MCH MCHC RDW RDW Differential Plt Count MPV Immature Gran % (Auto) Neut % (Auto) Lymph % (Auto) [place] % (Auto) Eos % (Auto) Baso % (Auto) Absolute Neuts (auto) Absolute Lymphs (auto) Total Counted Sodium Potassium Chloride Carbon Dioxide Anion Gap BUN Creatinine Estim Creat Clear Calc Est GFR (MDRD) Af Amer Est GFR (MDRD) Non-Af BUN/Creatinine Ratio Glucose Lactic Acid 1.3 Calcium Troponin I B-Natriuretic Peptide Urine Color Yellow Urine Clarity Clear Urine pH 6.5 Ur Specific [place] 1.020 Urine Protein 30 H Urine Glucose (UA) Normal Urine Ketones 150 H Urine Occult Blood 25 H Urine Nitrite Negative Urine Bilirubin 3 H Urine Urobilinogen 1 H Ur Leukocyte Esterase 25 H Urine RBC 0-5 SEEN Urine WBC 0-5 SEEN Ur Squamous Epith Cells 0 SEEN Urine Bacteria 0 SEEN Urine Mucus 3+ Assessment/Plan All Active Problems (Last Reviewed 02/07/18 @ 14:36 by Crystal Ibanez) Viral illness (Acute) Cardiac enzymes elevated (Acute) History of right hip replacement (Acute) Broken ankle (Acute) S/P laparoscopic cholecystectomy (Acute) S/P appendectomy (Acute) Acidosis (Acute) Acute and chronic respiratory failure with hypoxia (Acute) Nicotine abuse (Acute) Acute respiratory failure with hypercapnia (Acute) Acute respiratory failure with hypoxia and hypercapnia (Acute) Acute exacerbation of chronic obstructive airways disease (Acute) Hypokalemia (Acute) Subtherapeutic serum dilantin level (Acute) Subtherapeutic phenobarb level (Acute) Fever (Acute) Fracture of left great toe (Resolved) Frequent falls (Resolved) The patient is a 67 y/o F w/ PMHx: Seizure disorder, Restless leg, CHUY noncompliant with CPAP, Chronic Hypoxic Respiratory Failure (2L NC q HS only), Tobacco use, Chronic COPD, Chronic pain syndrome, Hypertension, Anxiety and Depression/Insomnia who presents to the [facility] ED on 03/05/18 with history of onset whole body aches, arthralgias, fever, chills, throbbing bilateral temporal headache starting at approximately noon with general malaise and fatigue with no recent ill contacts. (1) General Malaise,Fever, General Debility suspected secondary to Acute Viral Syndrome, Possible Influenza Viral Syndrome: CBC with WBCs 8.5, hemoglobin 14.1 , platelet 242 without market left shift, BMP with potassium 3.3, glucose 133, lactic acid 1.3, troponin 0.290, BNP 181.1, CT head with no acute findings, chest x-ray with chronic changes and no acute findings. Bld Cx x 2 obtained in the ED. UA unremarkable. Pending respiratory viral panel. Will admit to PCU as concurrent elevation cardiac enzymes, maintain on oxygen with wean as tolerated , continue ATC duonebs, PRN albuterol, HOB, IS parameters. (2) Indeterminate cardiac enzyme: EKG in ED w/ specific T-wave changes, CXR w/ COPD changes with no acute findings. Trop elevated, 0.290. Will maintain on a monitored bed, continue serial cardiac enzymes and EKGs. Obtain magnesium level upon admission. Administer therapeutic lovenox pending trend and if stable then transition back to prophylactic dose. Continue medical management w/ asa addition, defer BB given severe underlying COPD history, continue home statin w / AM FLP. ECHO requested. If further elevation may consider Cardiology consultation. Will be out of to have respiratory viral panel returned as may be possible flu prior to considerations for further intervention. ASA, NG, morphine. (3) Chronic COPD w/ Chronic Hypoxic Respiratory Failure: Continue home O2 supplementation q HS, continue ATC duonebs, PRN albuterol, HOB, IS parameters. (4) Tobacco Abuse: Encouraged cessation, inpatient consultation per RT, NR if desired but declined upon presentation. (5) Seizure disorder: Continue home regimen Dilantin and phenobarbital, Dilantin. (6) Chronic Pain Syndrome: Maintain on patient home methadone and gabapentin regimen regimen. (7) Anxiety and Depression: Maintain on home Wellbutrin, Remeron, Restoril regimen although preference would be to avoid usage of to sedate of p.m. regimens but specific note in system per PCP for continuation. (8) HTN: Maintain on home regimen of Norvasc, Lasix, withhold as needed, PRN oral hydralazine. (9) Hyperlipidemia: Continue home statin regimen. AM FLP. (10) CHUY: CPAP q HS. (11) RLS: Maintain on home requip regimen. (12) GERD: Famotidine. (13) DVT Prophylaxis: SCDs, therapeutic lovenox pending cardiac enzyme trend. Code Visit Inpatient E&M: [id number] Init Hosp L3
--- NOTE | 2018-03-05 17:00 | ECHOD_ITS ---
Reason For Study: chest pain Procedure This was a 2D Doppler, Color Flow transthoracic echocardiogram. Exam performed portable in patient room. Left Ventricle Normal LV size. Left ventricular systolic function is normal. The estimated ejection fraction is 60 %. No evidence for diastolic dysfunction. No regional wall motion abnormalities noted. Right Ventricle Normal RV size. Normal systolic function. Atria Normal left atrium. Normal right atrium. Mitral Valve Normal mitral valve. Tricuspid Valve Normal tricuspid valve. Mild tricuspid valve insufficiency. Pulmonary artery systolic pressure is 34 mmHg. Aortic Valve Normal aortic valve. Trisinus/trileaflet aortic valve. Pulmonic Valve Normal pulmonic valve. Great Vessels Normal aortic root. The pulmonary artery is normal size. Normal inferior vena cava. Pericardium/Pleural No pericardial effusion. MMode/2D Measurements & Calculations LVIDd: 4.7 cm IVSd: 1.0 cm Ao root diam: 3.1 cm LVIDs: 2.6 cm LVPWd: 1.3 cm LA dimension: 3.7 cm RVDd: 2.7 cm FS: 45.3 % LAV(MOD-bp): 48.4 ml LA A4 area: 15.3 cm2 RA A4 area: 13.7 cm2 LAV(MOD-bp) Indexed: 27.4 ml/m2 LAV(MOD-sp2): 57.7 ml LAV(MOD-sp4): 38.9 ml Doppler Measurements & Calculations MV E max rusty: 78.0 cm/sec Lat Peak E' Rusty: 8.3 cm/sec Med Peak E' Rusty: 7.3 cm/sec MV A max rusty: 62.4 cm/sec E/E' lat: 9.4 E/E' med: 10.7 MV E/A: 1.3 Ao V2 max: 160.0 cm/sec LV V1 max: 109.4 cm/sec PA V2 max: 116.4 cm/sec Ao max P.2 mmHg LV V1 max P.8 mmHg TR max rusty: 270.1 cm/sec TR max P.3 mmHg Interpretation Summary Normal LV size. Left ventricular systolic function is normal. The estimated ejection fraction is 60 %. No evidence for diastolic dysfunction. Mild tricuspid valve insufficiency. Ordering Physician: Arielle Hensley Referring Physician: Patel Veliz Chi Performed By: Maria Del Rosario Castellon RDCS, RVT
--- NOTE | 2018-03-05 17:00 | EKG12_ITS ---
Test Reason : SERIES EKG Blood Pressure : / mmHG Vent. Rate : 074 BPM Atrial Rate : 074 BPM P-R Int : 142 ms QRS Dur : 094 ms QT Int : 472 ms P-R-T Axes : 068 047 038 degrees QTc Int : 523 ms Normal sinus rhythm T wave abnormality, consider anterolateral ischemia Prolonged QT Abnormal ECG When compared with ECG of 05-MAR-2018 14:21, MANUAL COMPARISON REQUIRED, DATA IS UNCONFIRMED Confirmed by ROLAN LEACH, LEONELA ([id number]), story editor GOPI RAMIREZ ([id number]) on 03/08/2018 3:26:24 PM Referred By: ARTUR Confirmed By:LEONELA GONGORA MD
[2018-03-05 17:24] LABS: Magnesium 2.2 mg/dL (1.6-2.6)
[2018-03-05] MEDS: proMETHazine 25 MG/ML Syringe 12.5 MG IV (18:04)
[2018-03-05] MEDS: HYDROmorphone 1 MG/ML Syringe IV (18:04)
[2018-03-05] MEDS: 0.9% NaCl Peripheral Flush Adult/Peds IV ×2 (18:04→18:30)
[2018-03-05] MEDS: 0.9% Normal Saline 1,000 ML 125 ML IV (18:30)
[2018-03-05] MEDS: Enoxaparin 80 MG/0.8 ML Syringe 70 MG SC (18:30)
[2018-03-05] MEDS: Ipratropium/Albuterol Sulfate 3 ML AMPUL.NEB INHALATION (20:17)
[2018-03-05] MEDS: Phenobarbital 32.4 MG Tablet PO (21:38)
[2018-03-05] MEDS: Mirtazapine 15 MG Tablet PO (21:38)
[2018-03-05] MEDS: Tolterodine Tartrate 4 MG CAP.SA PO (21:38)
[2018-03-05] MEDS: Pravastatin 40 MG Tablet PO (21:38)
[2018-03-05] MEDS: Temazepam 15 MG Capsule 30 MG PO (21:38)
[2018-03-05] MEDS: Famotidine 20 MG Tablet PO (21:38)
[2018-03-05] MEDS: Methadone 10 MG Tablet PO (21:38)
[2018-03-05] MEDS: Phenytoin Na 100 MG Capsule PO (21:38)
[2018-03-05] MEDS: Latanoprost 0.005% 1 Bottle 1 DRP EACH EYE (21:39)
[2018-03-05] MEDS: Pramipexole Di-HCl 1 MG Tablet PO (21:39)
[2018-03-05] MEDS: buPROPion (SR) 150 MG Tablet.SA PO (21:49)
[2018-03-06] VITALS (14 sets, daily range): BP systolic 94–104; BP diastolic 38–65; PULSE 59–82; RESP 12–18; TEMP 36.6–37.2; O2SAT 93–99
[2018-03-06] MEDS: 0.9% Normal Saline 1,000 ML 125 ML IV ×3 (04:26→17:16)
[2018-03-06] MEDS: Enoxaparin 80 MG/0.8 ML Syringe 70 MG SC ×2 (05:22→17:11)
--- NOTE | 2018-03-06 05:55 | EKG12_ITS ---
Test Reason : AM EKG Blood Pressure : / mmHG Vent. Rate : 060 BPM Atrial Rate : 060 BPM P-R Int : 152 ms QRS Dur : 098 ms QT Int : 472 ms P-R-T Axes : 065 043 037 degrees QTc Int : 472 ms Normal sinus rhythm T wave abnormality, consider anterior ischemia Prolonged QT Abnormal ECG When compared with ECG of 05-MAR-2018 17:48, MANUAL COMPARISON REQUIRED, DATA IS UNCONFIRMED Confirmed by ROLAN LEACH, LEONELA ([id number]), editor house organ GOPI RAMIREZ ([id number]) on 03/08/2018 3:23:45 PM Referred By: DR SIDDIQUI Confirmed By:LEONELA GONGORA MD
[2018-03-06 06:39] LABS: Hematocrit 37.2 % (37-47); Hemoglobin 12.2 g/dl (12.0-15.0); Mean Corp Hgb Conc 32.8 g/gl (32-36); Mean Corpuscular Hgb 31.2 pg (27.0-32.0); Mean Corpuscular Volume 95.1 fL (81-99); Platelet Count 194 K/mm3 (150-450); RBC Distribution Width CV 14.4 % (11.6-14.6); RBC Distribution Width SD 48.7 fl (35.1-43.9); Red Blood Count 3.91 M/mm3 (4.2-5.4); White Blood Count 7.6 K/mm3 (4.4-11.0)
[2018-03-06 06:43] LABS: Scan Indicated on CBC? Y/N NO
[2018-03-06] MEDS: Ipratropium/Albuterol Sulfate 3 ML AMPUL.NEB INHALATION ×3 (07:00→18:58)
[2018-03-06 07:05] LABS: ALB/GLOB Ratio 0.9 RATIO (0.9-2.4); AST(SGOT) 22 U/L (15-37); Alanine Aminotransfer ALT/SGPT 33 U/L (13-56); Albumin, Serum 2.9 g/dL (3.2-5.0); Alkaline Phosphatase 54 U/L (45-117); Anion Gap 8 (5-15); BUN 18 mg/dL (7-18); BUN/Creat Ratio 32.5 RATIO (10-20); Calcium,Total 7.4 mg/dL (8.5-10.1); Chloride 110 mmol/L (98-107); Cholesterol 139 mg/dL (200); Creatinine, Serum 0.55 mg/dL (0.55-1.02); EST Glomerular Filtration Rate 116 mL/min (>60); Est Glom Filt Rate - Afr Amer 140 mL/min (>60); Estimated Creatinine Clearance 48.45 ml/min; Globulin 3.1 g/dL (2.2-4.2); Glucose 79 mg/dL (74-106); High Density Lipoprotein 48 mg/dL; Sodium Level 143 mmol/L (136-145); Triglycerides 156 mg/dL; Very Low Density Lipoprotein 31 mg/dL (5-40)
[2018-03-06] MEDS: Phenytoin Na 100 MG Capsule PO ×3 (11:09→21:10)
[2018-03-06] MEDS: Famotidine 20 MG Tablet PO ×2 (11:09→21:11)
[2018-03-06] MEDS: Gabapentin 300 MG Capsule PO ×2 (11:09→17:11)
[2018-03-06] MEDS: Phenobarbital 32.4 MG Tablet PO ×2 (11:09→21:10)
[2018-03-06] MEDS: Furosemide 40 MG Tablet PO (11:09)
[2018-03-06] MEDS: buPROPion (SR) 150 MG Tablet.SA PO ×2 (11:10→21:11)
--- NOTE | 2018-03-06 12:54 | CASEMGMT ---
SW received a call from Beata Simmons at [facility]. She was just wanting an update on patient. She said patient gets Meals on Wheels and she has aide services 3 hours a day M-F. SW will let her know when patient is discharged. Michela CARTER MSW
--- NOTE | 2018-03-06 12:55 | CASEMGMT ---
Face to Face with patient for initial transition planning/care coordination assessment. RN YOSHI introduced self and role at [facility], pt voices understanding and consents to assessment at this time. Pt is lying in bed in no distress at this time. Pt is A/O x4 at this time and answers all questions appropriately at this time. Care providers, pharmacy, and demographics verified. See attached link. Pt voices no further concerns/needs at this time. Advised pt to ask for CM if any further questions/concerns/needs arise, voices understanding. CM to follow for any further discharge planning/needs. PLAN: [place] [facility]
[2018-03-06 16:52] LABS: CPK Total, Creatine Kinase 137 U/L (26-192)
--- NOTE | 2018-03-06 17:45 | PCM.PN.HOSP ---
Patient Problems: Active and Suspected Problems (Last Reviewed 02/07/18 @ 14:36 by Crystal Ibanez) Viral illness (Acute) Cardiac enzymes elevated (Acute) Subjective: Notified by nursing earlier today the patient's respiratory rate dropped 6. Then recommended that the methadone be discontinued. Subsequently, patient complains of severe back pain and was dismissive of the fact that her respiratory rate was low and stating that she would need just oxygen at night. Vitals/I&O's: Vital Signs Temp Pulse Resp BP Pulse Ox 37.2 C 72 18 104/65 96 03/06/18 15:40 03/06/18 15:40 03/06/18 15:40 03/06/18 15:40 03/06/18 15:40 Oxygen Flow Rate (L/min) 2 Oxygen Delivery Method Room Air Weight: 69.6 kg Body Mass Index (BMI) 25.5 Intake and Output for Last 24 Hours 03/04/18 03/05/18 03/06/18 23:59 23:59 23:59 Intake Total 3116 / 3116 Output Total 120 / 120 Balance 2996 / 2996 General: Alert, No apparent distress, - - I initially walked and patient was in any acute distress but the longer is in room patient started writhing in pain HEENT: Atraumatic, Normocephalic Oral: Moist Mucosa, No Gingival or Mucosal Lesions/ Ulcerations Neck: No Nodes, Thyroid Normal Size and Texture Lungs: Clear to auscultation, Normal air movement, No rhonchi, No wheeze Cardiovascular: Regular rate, Regular Rhythm, Normal S1, Normal S2, No murmurs Abdomen: Bowel Sounds Present, Soft, Non Tender, Non-Distended, No Hepato-splenomegaly Extremities: No edema, No Calf Tenderness Skin: No rashes, No breakdown Psych/Mental Status: Flat Affect Microbiology Past 72 Hours 03/05/18 20:30 Mucosa - Nose Respiratory Panel (PCR) - Final Laboratory Results 03/05/18 18:01: Troponin I 0.250 H 03/05/18 21:13: Troponin I 0.220 H 03/06/18 06:15: WBC 7.6, RBC 3.91 L, Hgb 12.2, Hct 37.2, MCV 95.1, MCH 31.2, MCHC 32.8, RDW 14.4, RDW Differential 48.7 H, Plt Count 194, MPV 10.0 03/06/18 06:15: Sodium 143, Potassium 4.0, Chloride 110 H, Carbon Dioxide 25.0, Anion Gap 8, BUN 18, Creatinine 0.55, Estim Creat Clear Calc 48.45, Est GFR (MDRD) Af Amer 140, Est GFR (MDRD) Non-Af 116, BUN/Creatinine Ratio 32.5 H, Glucose 79, Calcium 7.4 L, Total Bilirubin 0.40, AST 22, ALT 33, Alkaline Phosphatase 54, Total Protein 6.0 L, Albumin 2.9 L, Globulin 3.1, Albumin/Globulin Ratio 0.9, Triglycerides 156, Cholesterol 139, LDL Cholesterol 60, VLDL Cholesterol 31, HDL Cholesterol 48 03/06/18 16:08: Total Creatine Kinase 137 Current Medications Acetaminophen (Tylenol) 650 mg PO Q6H PRN PRN PRN Reason: Non-cardiac pain (mod-severe) Al Hydroxide/Mg Hydroxide (Mylanta Ii) 30 ml PO Q6H PRN PRN PRN Reason: Gastric burning Albuterol Sulfate (Ventolin Aerosols) 2.5 mg INHALATION Q2H PRN PRN PRN Reason: dyspnea, wheezing Albuterol Sulfate (Ventolin Aerosols) 2.5 mg INHALATION Q6HWA.RT [facility] Albuterol/Ipratropium (Duoneb) 3 ml INHALATION Q6HWA.RT [facility] Last Admin: 03/06/18 12:59 Dose: 3 ml Alendronate Sodium (Fosamax) 70 mg PO FR CHEN Amlodipine Besylate (Norvasc) 2.5 mg PO DAILY [facility] Last Admin: 03/06/18 10:45 Dose: Not Given Budesonide (Pulmicort Aerosol) 0.5 mg INHALATION Q12H.RT [facility] Bupropion HCl (Wellbutrin Sr (150mg Tablets)) 150 mg PO BID [facility] Last Admin: 03/06/18 11:10 Dose: 150 mg Calcium/Vitamin D (Os-Nolan 500mg + D) 1 tablet PO DAILY@0800 [facility] Clotrimazole (Lotrimin) 1 applicatio TOPICAL BID PRN PRN; Protocol PRN Reason: redness Cyclobenzaprine HCl (Flexeril) 10 mg PO TID PRN PRN Reason: MUSCLE SPASM Last Admin: 03/06/18 11:33 Dose: 10 mg Enoxaparin Sodium (Lovenox) 70 mg 1 mg/kg (90 mg) SC Q12@0600,1800 [facility] Last Admin: 03/06/18 17:11 Dose: 70 mg Ergocalciferol (Vitamin D) 50,000 unit PO [facility] Etodolac (Lodine) 400 mg PO BID [facility] Famotidine (Pepcid) 20 mg PO BID [facility] Last Admin: 03/06/18 11:09 Dose: 20 mg Furosemide (Lasix) 40 mg PO DAILY [facility] Last Admin: 03/06/18 11:09 Dose: 40 mg [facility] Last Admin: 03/06/18 17:11 Dose: 300 mg Sodium Chloride () 1,000 mls @ 125 mls/hr IV .Q8H [facility] Last Admin: 03/06/18 17:16 Dose: 125 mls/hr Latanoprost (Xalatan Opthalmic) 1 drop EACH EYE QHS [facility] Last Admin: 03/05/18 21:39 Dose: 1 drop Magnesium Hydroxide (Milk Of Magnesia) 30 ml PO DAILY PRN PRN Reason: Constipation Methadone HCl () 5 mg PO Q8H PRN PRN PRN Reason: PAIN Last Admin: 03/06/18 17:11 Dose: 5 mg Mirtazapine (Remeron) 15 mg PO QHS [facility] Last Admin: 03/05/18 21:38 Dose: 15 mg Nitroglycerin (Nitrostat) 0.4 mg SUBLINGUAL Q5M PRN PRN Reason: CHEST PAIN Ondansetron HCl (Zofran) 4 mg IV Q8H PRN PRN PRN Reason: NAUSEA Phenobarbital (Phenobarbital) 32.4 mg PO BID [facility] Last Admin: 03/06/18 11:09 Dose: 32.4 mg Phenytoin Sodium (Dilantin) [facility] Last Admin: 03/06/18 17:11 Dose: 100 mg Potassium Chloride (K-Dur) [facility] Last Admin: 03/06/18 11:09 Dose: 20 meq [facility]am[facility]ole [facility]) [facility] Last Admin: 03/05/18 21:39 Dose: 1 mg Pravastatin Sodium ([facility]achol) [facility] Last Admin: 03/05/18 21:38 Dose: 40 mg Promethazine HCl (Phenergan) 12.5 mg IV Q6H PRN PRN PRN Reason: NAUSEA/VOMITING Last Admin: 03/05/18 18:04 Dose: 12.5 mg Psyllium Hydrophilic Mucilloid (Metamucil) 1 packet PO DAILY PRN PRN PRN Reason: CONSTIPATION Sodium Chloride () 5 - 30 ml IV UD PRN PRN Reason: SALINE FLUSH Last Admin: 03/05/18 18:30 Dose: 10 ml Temazepam (Restoril) 30 mg PO QHS [facility] Last Admin: 03/05/18 21:38 Dose: 30 mg Tolterodine Tartrate (Detrol La) 4 mg PO QHS [facility] Last Admin: 03/05/18 21:38 Dose: 4 mg Medical Necessity - Tobacco Use Smoking Status: Current every day smoker Tobacco Use: Cigarettes Assessment/Plan All Active Problems (Last Reviewed 02/07/18 @ 14:36 by Crystal Ibanez) Viral illness (Acute) Cardiac enzymes elevated (Acute) History of right hip replacement (Acute) Broken ankle (Acute) S/P laparoscopic cholecystectomy (Acute) S/P appendectomy (Acute) Acidosis (Acute) Acute and chronic respiratory failure with hypoxia (Acute) Nicotine abuse (Acute) Acute respiratory failure with hypercapnia (Acute) Acute respiratory failure with hypoxia and hypercapnia (Acute) Acute exacerbation of chronic obstructive airways disease (Acute) Hypokalemia (Acute) Subtherapeutic serum dilantin level (Acute) Subtherapeutic phenobarb level (Acute) Fever (Acute) Fracture of left great toe (Resolved) Frequent falls (Resolved) 1. Systemic inflammatory response syndrome Present on arrival Infectious workup has been negative Fever is resolved 2. Elevated troponin of unclear etiology We will add aspirin and high intensity statin discontinue Lovenox Stress test based on the results of the stress test contact, may need to consult cardiology 3. Chronic pain Patient did have decreased respiratory rate today. I talked the patient about concern for overdose even if unintentional. Patient was dismissive of that notion as she has been on methadone for some period of time. I told her that while she is under my care will be judicious about narcotics and its are demonstrated risk for her. I told her that I will resume her methadone but at a reduced dose of 5 mg 3 times daily and only as needed not scheduled Patient may follow-up with Dr. Andujar as outpt 4. DVT proph Change Lovenox to DVT prophylactic dosing Code Visit Inpatient E&M: 06458 Subs Hosp L2
--- NOTE | 2018-03-06 17:51 | PN_ITS ---
Patient Problems: Active and Suspected Problems (Last Reviewed 02/07/18 @ 14:36 by Crystal Ibanez) Viral illness (Acute) Cardiac enzymes elevated (Acute) Subjective: Notified by nursing earlier today the patient's respiratory rate dropped 6. Then recommended that the methadone be discontinued. Subsequently, patient complains of severe back pain and was dismissive of the fact that her respiratory rate was low and stating that she would need just oxygen at night. Vitals/I&O's: Vital Signs Temp Pulse Resp BP Pulse Ox 37.2 C 72 18 104/65 96 03/06/18 15:40 03/06/18 15:40 03/06/18 15:40 03/06/18 15:40 03/06/18 15:40 Oxygen Flow Rate (L/min) 2 Oxygen Delivery Method Room Air Weight: 69.6 kg Body Mass Index (BMI) 25.5 Intake and Output for Last 24 Hours 03/04/18 03/05/18 03/06/18 23:59 23:59 23:59 Intake Total 3116 / 3116 Output Total 120 / 120 Balance 2996 / 2996 General: Alert, No apparent distress, - - I initially walked and patient was in any acute distress but the longer is in room patient started writhing in pain HEENT: Atraumatic, Normocephalic Oral: Moist Mucosa, No Gingival or Mucosal Lesions/ Ulcerations Neck: No Nodes, Thyroid Normal Size and Texture Lungs: Clear to auscultation, Normal air movement, No rhonchi, No wheeze Cardiovascular: Regular rate, Regular Rhythm, Normal S1, Normal S2, No murmurs Abdomen: Bowel Sounds Present, Soft, Non Tender, Non-Distended, No Hepato- splenomegaly Extremities: No edema, No Calf Tenderness Skin: No rashes, No breakdown Psych/Mental Status: Flat Affect Microbiology Past 72 Hours 03/05/18 20:30 Mucosa - Nose Respiratory Panel (PCR) - Final Laboratory Results 03/05/18 18:01: Troponin I 0.250 H 03/05/18 21:13: Troponin I 0.220 H 03/06/18 06:15: WBC 7.6, RBC 3.91 L, Hgb 12.2, Hct 37.2, MCV 95.1, MCH 31.2, MCHC 32.8, RDW 14.4, RDW Differential 48.7 H, Plt Count 194, MPV 10.0 03/06/18 06:15: Sodium 143, Potassium 4.0, Chloride 110 H, Carbon Dioxide 25.0, Anion Gap 8, BUN 18, Creatinine 0.55, Estim Creat Clear Calc 48.45, Est GFR ( MDRD) Af Amer 140, Est GFR (MDRD) Non-Af 116, BUN/Creatinine Ratio 32.5 H, Glucose 79, Calcium 7.4 L, Total Bilirubin 0.40, AST 22, ALT 33, Alkaline Phosphatase 54, Total Protein 6.0 L, Albumin 2.9 L, Globulin 3.1, Albumin/ Globulin Ratio 0.9, Triglycerides 156, Cholesterol 139, LDL Cholesterol 60, VLDL Cholesterol 31, HDL Cholesterol 48 03/06/18 16:08: Total Creatine Kinase 137 Current Medications Acetaminophen (Tylenol) 650 mg PO Q6H PRN PRN PRN Reason: Non-cardiac pain (mod-severe) Al Hydroxide/Mg Hydroxide (Mylanta Ii) 30 ml PO Q6H PRN PRN PRN Reason: Gastric burning Albuterol Sulfate (Ventolin Aerosols) 2.5 mg INHALATION Q2H PRN PRN PRN Reason: dyspnea, wheezing Albuterol Sulfate (Ventolin Aerosols) 2.5 mg INHALATION Q6HWA.RT [facility] Albuterol/Ipratropium (Duoneb) 3 ml INHALATION Q6HWA.RT [facility] Last Admin: 03/06/18 12:59 Dose: 3 ml Alendronate Sodium (Fosamax) 70 mg PO FR CHEN Amlodipine Besylate (Norvasc) 2.5 mg PO DAILY [facility] Last Admin: 03/06/18 10:45 Dose: Not Given Budesonide (Pulmicort Aerosol) 0.5 mg INHALATION Q12H.RT [facility] Bupropion HCl (Wellbutrin Sr (150mg Tablets)) 150 mg PO BID [facility] Last Admin: 03/06/18 11:10 Dose: 150 mg Calcium/Vitamin D (Os-Nolan 500mg + D) 1 tablet PO DAILY@0800 [facility] Clotrimazole (Lotrimin) 1 applicatio TOPICAL BID PRN PRN; Protocol PRN Reason: redness Cyclobenzaprine HCl (Flexeril) 10 mg PO TID PRN PRN Reason: MUSCLE SPASM Last Admin: 03/06/18 11:33 Dose: 10 mg Enoxaparin Sodium (Lovenox) 70 mg 1 mg/kg (90 mg) SC Q12@0600,1800 [facility] Last Admin: 03/06/18 17:11 Dose: 70 mg Ergocalciferol (Vitamin D) 50,000 unit PO [facility] Etodolac (Lodine) 400 mg PO BID [facility] Famotidine (Pepcid) 20 mg PO BID [facility] Last Admin: 03/06/18 11:09 Dose: 20 mg Furosemide (Lasix) 40 mg PO DAILY [facility] Last Admin: 03/06/18 11:09 Dose: 40 mg [facility]) [facility] Last Admin: 03/06/18 17:11 Dose: 300 mg Sodium Chloride () 1,000 mls @ 125 mls/hr IV .Q8H [facility] Last Admin: 03/06/18 17:16 Dose: 125 mls/hr Latanoprost (Xalatan Opthalmic) 1 drop EACH EYE QHS [facility] Last Admin: 03/05/18 21:39 Dose: 1 drop Magnesium Hydroxide (Milk Of Magnesia) 30 ml PO DAILY PRN PRN Reason: Constipation Methadone HCl () 5 mg PO Q8H PRN PRN PRN Reason: PAIN Last Admin: 03/06/18 17:11 Dose: 5 mg Mirtazapine (Remeron) 15 mg PO QHS [facility] Last Admin: 03/05/18 21:38 Dose: 15 mg Nitroglycerin (Nitrostat) 0.4 mg SUBLINGUAL Q5M PRN PRN Reason: CHEST PAIN Ondansetron HCl (Zofran) 4 mg IV Q8H PRN PRN PRN Reason: NAUSEA Phenobarbital (Phenobarbital) 32.4 mg PO BID [facility] Last Admin: 03/06/18 11:09 Dose: 32.4 mg Phenytoin Sodium (Dilantin) [facility] Last Admin: 03/06/18 17:11 Dose: 100 mg Potassium Chloride (K-Dur) 20 [facility]q [facility] Last Admin: 03/06/18 11:09 Dose: 20 meq Pramipexole [facility]hydrochlor[facility] ([facility]x) [facility] Last Admin: 03/05/18 21:39 Dose: 1 mg Pravastatin Sodium (Pravachol) [facility] Last Admin: 03/05/18 21:38 Dose: 40 mg Promethazine HCl (Phenergan) 12.5 mg IV Q6H PRN PRN PRN Reason: NAUSEA/VOMITING Last Admin: 03/05/18 18:04 Dose: 12.5 mg Psyllium Hydrophilic Mucilloid (Metamucil) 1 packet PO DAILY PRN PRN PRN Reason: CONSTIPATION Sodium Chloride () 5 - 30 ml IV UD PRN PRN Reason: SALINE FLUSH Last Admin: 03/05/18 18:30 Dose: 10 ml Temazepam (Restoril) 30 mg PO QHS [facility] Last Admin: 03/05/18 21:38 Dose: 30 mg Tolterodine Tartrate (Detrol La) 4 mg PO QHS [facility] Last Admin: 03/05/18 21:38 Dose: 4 mg Medical Necessity - Tobacco Use Smoking Status: Current every day smoker Tobacco Use: Cigarettes Assessment/Plan All Active Problems (Last Reviewed 02/07/18 @ 14:36 by Crystal Ibanez) Viral illness (Acute) Cardiac enzymes elevated (Acute) History of right hip replacement (Acute) Broken ankle (Acute) S/P laparoscopic cholecystectomy (Acute) S/P appendectomy (Acute) Acidosis (Acute) Acute and chronic respiratory failure with hypoxia (Acute) Nicotine abuse (Acute) Acute respiratory failure with hypercapnia (Acute) Acute respiratory failure with hypoxia and hypercapnia (Acute) Acute exacerbation of chronic obstructive airways disease (Acute) Hypokalemia (Acute) Subtherapeutic serum dilantin level (Acute) Subtherapeutic phenobarb level (Acute) Fever (Acute) Fracture of left great toe (Resolved) Frequent falls (Resolved) 1. Systemic inflammatory response syndrome Present on arrival Infectious workup has been negative Fever is resolved 2. Elevated troponin of unclear etiology We will add aspirin and high intensity statin discontinue Lovenox Stress test based on the results of the stress test contact, may need to consult cardiology 3. Chronic pain Patient did have decreased respiratory rate today. I talked the patient about concern for overdose even if unintentional. Patient was dismissive of that notion as she has been on methadone for some period of time. I told her that while she is under my care will be judicious about narcotics and its are demonstrated risk for her. I told her that I will resume her methadone but at a reduced dose of 5 mg 3 times daily and only as needed not scheduled Patient may follow-up with Dr. Andujar as outpt 4. DVT proph Change Lovenox to DVT prophylactic dosing Code Visit Inpatient E&M: 15689 Subs Hosp L2
[2018-03-06] MEDS: Budesonide Respules 0.5 MG/2 ML AMPUL.NEB. INHALATION (18:58)
[2018-03-06] MEDS: Aspirin 325 MG Tablet PO (19:00)
[2018-03-06] MEDS: Temazepam 15 MG Capsule 30 MG PO (21:10)
[2018-03-06] MEDS: Pravastatin 40 MG Tablet PO (21:11)
[2018-03-06] MEDS: Pramipexole Di-HCl 1 MG Tablet PO (21:11)
[2018-03-06] MEDS: Latanoprost 0.005% 1 Bottle 1 DRP EACH EYE (21:12)
[2018-03-06] MEDS: Mirtazapine 15 MG Tablet PO (21:13)
[2018-03-06] MEDS: Tolterodine Tartrate 4 MG CAP.SA PO (21:13)
[2018-03-06] MEDS: Etodolac 200 MG Capsule 400 MG PO (21:19)
[2018-03-07] VITALS (9 sets, daily range): BP systolic 115–142; BP diastolic 65–81; PULSE 68–101; RESP 16–20; TEMP 36.3–37.1; O2SAT 95–98
[2018-03-07] MEDS: Aspirin 81 MG TAB.CHEW PO (05:33)
--- NOTE | 2018-03-07 05:55 | EKG12_ITS ---
Test Reason : AM EKG Blood Pressure : / mmHG Vent. Rate : 077 BPM Atrial Rate : 077 BPM P-R Int : 158 ms QRS Dur : 100 ms QT Int : 410 ms P-R-T Axes : 064 037 054 degrees QTc Int : 463 ms Normal sinus rhythm T wave abnormality, consider anterior ischemia Abnormal ECG When compared with ECG of 06-MAR-2018 05:56, MANUAL COMPARISON REQUIRED, DATA IS UNCONFIRMED Confirmed by ROLAN LEACH, LEONELA ([id number]), art editor GOPI RAMIREZ ([id number] on 03/09/2018 2:28:37 PM Referred By: DR SIDDIQUI Confirmed By:LEONELA GONGORA MD
[2018-03-07 06:20] LABS: Absolute Neutrophil Count 5.2 X10^3/uL (2.0-7.7); Basophil# 0.06 X10^3/uL; Basophil% 0.7 % (0-1); Eosinophil# 0.19 X10^3/uL; Eosinophils% 2.3 % (0-5); Hemoglobin 12.4 g/dl (12.0-15.0); Lymphocyte % 24.3 % (19-41); Mean Corp Hgb Conc 32.6 g/gl (32-36); Mean Platelet Vol. 10.2 fl (6.2-12.0); Monocyte# 0.82 X10^3/uL; Neutrophil # 5.16 X10^3/uL (2.7-7.7); Neutrophil % 62.6 % (47-70); Platelet Count 171 K/mm3 (150-450); RBC Distribution Width CV 14.4 % (11.6-14.6); RBC Distribution Width SD 48.1 fl (35.1-43.9); White Blood Count 8.2 K/mm3 (4.4-11.0)
[2018-03-07 06:23] LABS: POSITIVE COUNT NO; POSITIVE DIFFERENTIAL NO; POSITIVE MORPHOLOGY NO
[2018-03-07 06:33] LABS: International Normalized Ratio 1.1; Prothrombin Time (Protime)PT. 14.2 SECONDS (11.7-14.9)
[2018-03-07 06:47] LABS: Anion Gap 9 (5-15); BUN 18 mg/dL (7-18); BUN/Creat Ratio 27.1 RATIO (10-20); Calcium,Total 7.8 mg/dL (8.5-10.1); Chloride 110 mmol/L (98-107); Creatinine, Serum 0.66 mg/dL (0.55-1.02); EST Glomerular Filtration Rate 94 mL/min (>60); Est Glom Filt Rate - Afr Amer 113 mL/min (>60); Estimated Creatinine Clearance 48.45 ml/min; Glucose 115 mg/dL (74-106); Potassium 3.2 mmol/L (3.5-5.1); Sodium Level 145 mmol/L (136-145)
[2018-03-07] MEDS: Ipratropium/Albuterol Sulfate 3 ML AMPUL.NEB INHALATION ×2 (07:38→13:16)
[2018-03-07] MEDS: Budesonide Respules 0.5 MG/2 ML AMPUL.NEB. INHALATION (07:38)
[2018-03-07] MEDS: Calcium Carb/Vitamin D 1 TABLET Tablet PO (11:10)
[2018-03-07] MEDS: Gabapentin 300 MG Capsule PO ×2 (11:10→16:42)
[2018-03-07] MEDS: Phenytoin Na 100 MG Capsule PO ×2 (11:10→16:42)
[2018-03-07] MEDS: Etodolac 200 MG Capsule 400 MG PO (11:10)
[2018-03-07] MEDS: Famotidine 20 MG Tablet PO (11:11)
[2018-03-07] MEDS: buPROPion (SR) 150 MG Tablet.SA PO (11:11)
[2018-03-07] MEDS: amLODIPine 2.5 MG Tablet PO (11:11)
--- NOTE | 2018-03-07 11:12 | STRESSREP ---
Stress Test Report Date: 03/07/2018 Procedure: Pharmacologic stress nuclear imaging study Indications: Chest pain Consent: Per the patient Procedure: The patient underwent pharmacologic (Regadenoson) evaluation with a peak heart rate of 109 beats per minute (71 predicted maximal heart rate) and a peak blood pressure of 134/84 mmHg. The baseline ECG demonstrated normal sinus rhythm; nonspecific ST/T-wave abnormality. The peak pharmacologic ECG demonstrated no obvious ECG changes. There were no cardiac dysrhythmias pretest, during pharmacologic infusion, or recovery. There was no complaint of chest discomfort during pharmacologic infusion or recovery. The examination was discontinued secondary to completion of protocol. Impression: 1. Pharmacologic (Regadenoson) evaluation 2. Peak pharmacologic ECG with obvious ECG changes. 3. No cardiac dysrhythmias pretest, during pharmacologic infusion, or recovery 4. Nuclear images pending Myocardial perfusion imaging study: Technique: The patient was injected with 11.8 millicuries of technetium 99m Cardiolite and subsequently rest SPECT Cardiolite nuclear imaging was obtained in the horizontal long, vertical long, and short axis views. The patient underwent pharmacologic (Regadenoson) evaluation with a peak heart rate of 109 beats per minute (71 % percent predicted maximal heart rate) and a peak blood pressure of 134/84 mmHg. The patient was injected with 32.2 millicuries of technetium 99m Cardiolite and subsequently stress SPECT Cardiolite nuclear imaging was obtained in the horizontal long, vertical long, and short axis views. A gated Cardiolite study at peak stress was obtained. Interpretation: Rest and stress SPECT Cardiolite nuclear imaging status post realignment, normalization, and attenuation correction demonstrate an area of diminished tracer uptake in the apical segments without significant change between rest and stress. There is end systolic thickening and brightening. The gated Cardiolite study demonstrates myocardial thickening and inward wall motion. The reported LVEF is 70 %. Impression: 1. Rest and stress SPECT Cardiolite nuclear imaging demonstrate an area of diminished tracer uptake in the apical segments without significant change between rest and stress appearing compatible with physiologic apical thinning with no myocardial perfusion changes considered diagnostic for associated stress-induced myocardial ischemia. 2. The gated Cardiolite study reports an LVEF of 70 %. This note was generated with [employer] software. It may contain incorrect words, spelling, and punctuation that were not noted in checking the note before signing.
[2018-03-07] MEDS: Phenobarbital 32.4 MG Tablet PO (11:15)
--- NOTE | 2018-03-07 11:16 | STRESSREP_ITS ---
Stress Test Report Date: 03/07/2018 Procedure: Pharmacologic stress nuclear imaging study Indications: Chest pain Consent: Per the patient Procedure: The patient underwent pharmacologic (Regadenoson) evaluation with a peak heart rate of 109 beats per minute (71 predicted maximal heart rate) and a peak blood pressure of 134/84 mmHg. The baseline ECG demonstrated normal sinus rhythm; nonspecific ST/T-wave abnormality. The peak pharmacologic ECG demonstrated no obvious ECG changes. There were no cardiac dysrhythmias pretest, during pharmacologic infusion, or recovery. There was no complaint of chest discomfort during pharmacologic infusion or recovery. The examination was discontinued secondary to completion of protocol. Impression: 1. Pharmacologic (Regadenoson) evaluation 2. Peak pharmacologic ECG with obvious ECG changes. 3. No cardiac dysrhythmias pretest, during pharmacologic infusion, or recovery 4. Nuclear images pending Myocardial perfusion imaging study: Technique: The patient was injected with 11.8 millicuries of technetium 99m Cardiolite and subsequently rest SPECT Cardiolite nuclear imaging was obtained in the horizontal long, vertical long, and short axis views. The patient underwent pharmacologic (Regadenoson) evaluation with a peak heart rate of 109 beats per minute (71 % percent predicted maximal heart rate) and a peak blood pressure of 134/84 mmHg. The patient was injected with 32.2 millicuries of technetium 99m Cardiolite and subsequently stress SPECT Cardiolite nuclear imaging was obtained in the horizontal long, vertical long, and short axis views. A gated Cardiolite study at peak stress was obtained. Interpretation: Rest and stress SPECT Cardiolite nuclear imaging status post realignment, normalization, and attenuation correction demonstrate an area of diminished tracer uptake in the apical segments without significant change between rest and stress. There is end systolic thickening and brightening. The gated Cardiolite study demonstrates myocardial thickening and inward wall motion. The reported LVEF is 70 %. Impression: 1. Rest and stress SPECT Cardiolite nuclear imaging demonstrate an area of diminished tracer uptake in the apical segments without significant change between rest and stress appearing compatible with physiologic apical thinning with no myocardial perfusion changes considered diagnostic for associated stress -induced myocardial ischemia. 2. The gated Cardiolite study reports an LVEF of 70 %. This note was generated with [employer] software. It may contain incorrect words, spelling, and punctuation that were not noted in checking the note before signing.
--- NOTE | 2018-03-07 16:10 | PCM.PN.HOSP ---
Patient Problems: Active and Suspected Problems (Last Reviewed 02/07/18 @ 14:36 by Crystal Ibanez) Viral illness (Acute) Cardiac enzymes elevated (Acute) Subjective: Feels good. No new complaints. No shortness of breath. No chest pain. Vitals/I&O's: Vital Signs Temp Pulse Resp BP Pulse Ox 36.3 C L 81 16 142/81 H 96 03/07/18 03:07 03/07/18 15:14 03/07/18 13:16 03/07/18 03:07 03/07/18 13:16 Oxygen Flow Rate (L/min) 2 Oxygen Delivery Method Room Air Weight: 69.6 kg Body Mass Index (BMI) 25.5 Intake and Output for Last 24 Hours 03/05/18 03/06/18 03/07/18 23:59 23:59 23:59 Intake Total 3116 / 3116 200 / 200 Output Total 120 / 120 Balance 2996 / 2996 200 / 200 General: Alert, No apparent distress HEENT: Atraumatic, Normocephalic Oral: Moist Mucosa, No Gingival or Mucosal Lesions/ Ulcerations Neck: No Nodes, Thyroid Normal Size and Texture Lungs: Clear to auscultation, Normal air movement, No rhonchi, No wheeze Cardiovascular: Regular rate, Regular Rhythm, Normal S1, Normal S2, No murmurs Abdomen: Bowel Sounds Present, Soft, Non Tender, Non-Distended Microbiology Past 72 Hours 03/05/18 20:30 Mucosa - Nose Respiratory Panel (PCR) - Final Laboratory Results 03/06/18 16:08: Total Creatine Kinase 137 03/07/18 06:00: Sodium 145, Potassium 3.2 L, Chloride 110 H, Carbon Dioxide 26.0, Anion Gap 9, BUN 18, Creatinine 0.66, Estim Creat Clear Calc 48.45, Est GFR (MDRD) Af Amer 113, Est GFR (MDRD) Non-Af 94, BUN/Creatinine Ratio 27.1 H, Glucose 115 H, Calcium 7.8 L 03/07/18 06:00: WBC 8.2, RBC 4.00 L, Hgb 12.4, Hct 38.0, MCV 95.0, MCH 31.0, MCHC 32.6, RDW 14.4, RDW Differential 48.1 H, Plt Count 171, MPV 10.2, Immature Gran % (Auto) 0.100, Neut % (Auto) 62.6, Lymph % (Auto) 24.3, Routt % (Auto) 10.0, Eos % (Auto) 2.3, Baso % (Auto) 0.7, Absolute Neuts (auto) 5.2, Absolute Lymphs (auto) 2.00, Total Counted Not Reportable 03/07/18 06:00: PT 14.2, INR 1.1, APTT 32.0 Current Medications Acetaminophen (Tylenol) 650 mg PO Q6H PRN PRN PRN Reason: Non-cardiac pain (mod-severe) Al Hydroxide/Mg Hydroxide (Mylanta Ii) 30 ml PO Q6H PRN PRN PRN Reason: Gastric burning Albuterol Sulfate (Ventolin Aerosols) 2.5 mg INHALATION Q2H PRN PRN PRN Reason: dyspnea, wheezing Albuterol Sulfate (Ventolin Aerosols) 2.5 mg INHALATION Q6HWA.RT [facility] Albuterol/Ipratropium (Duoneb) 3 ml INHALATION Q6HWA.RT [facility] Last Admin: 03/07/18 13:16 Dose: 3 ml Alendronate Sodium (Fosamax) 70 mg PO FR CHEN Amlodipine Besylate (Norvasc) 2.5 mg PO DAILY [facility] Last Admin: 03/07/18 11:11 Dose: 2.5 mg Aspirin (Aspirin, Baby) 81 mg PO DAILY@0800 [facility] Last Admin: 03/07/18 05:33 Dose: 81 mg Budesonide (Pulmicort Aerosol) 0.5 mg INHALATION Q12H.RT [facility] Last Admin: 03/07/18 07:38 Dose: 0.5 mg Bupropion HCl (Wellbutrin Sr (150mg Tablets)) 150 mg PO BID [facility] Last Admin: 03/07/18 11:11 Dose: 150 mg Calcium/Vitamin D (Os-Nolan 500mg + D) 1 tablet PO DAILY@0800 [facility] Last Admin: 03/07/18 11:10 Dose: 1 tablet Clotrimazole (Lotrimin) 1 applicatio TOPICAL BID PRN PRN; Protocol PRN Reason: redness Cyclobenzaprine HCl (Flexeril) 10 mg PO TID PRN PRN Reason: MUSCLE SPASM Last Admin: 03/07/18 12:17 Dose: 10 mg Enoxaparin Sodium (Lovenox) 40 mg SC DAILY@0600 [facility] Last Admin: 03/07/18 05:34 Dose: Not Given Ergocalciferol (Vitamin D) 50,000 unit PO [facility] Etodolac (Lodine) 400 mg PO BID [facility] Last Admin: 03/07/18 11:10 Dose: 400 mg Famotidine (Pepcid) 20 mg PO BID [facility] Last Admin: 03/07/18 11:11 Dose: 20 mg Furosemide (Lasix) 40 mg PO DAILY [facility] Last Admin: 03/07/18 11:10 Dose: Not Given [facility]) [facility]: 03/07/18 11:10 Dose: 300 mg Latanoprost (Xalatan Opthalmic) [facility] Last Admin: 03/06/18 21:12 Dose: 1 drop Magnesium Hydroxide (Milk Of Magnesia) 30 ml PO DAILY PRN PRN Reason: Constipation Methadone HCl () 5 mg PO Q8H PRN PRN PRN Reason: PAIN Last Admin: 03/07/18 14:08 Dose: 5 mg Mirtazapine (Remeron) [facility] Last Admin: 03/06/18 21:13 Dose: 15 mg Nitroglycerin (Nitrostat) 0.4 mg SUBLINGUAL Q5M PRN PRN Reason: CHEST PAIN Ondansetron HCl (Zofran) 4 mg IV Q8H PRN PRN PRN Reason: NAUSEA Phenobarbital (Phenobarbital) 32.4 mg PO BID [facility] Last Admin: 03/07/18 11:15 Dose: 32.4 mg Phenytoin Sodium (Dilantin) [facility] Last Admin: 03/07/18 11:10 Dose: 100 mg Potassium Chloride (K-Dur) [facility]q [facility] Last Admin: 03/07/18 11:09 Dose: 20 meq Pramipexole Dihydrochloride (Mirapex) [facility] Last Admin: 03/06/18 21:11 Dose: 1 mg Pravastatin Sodium (Pravachol) 40 [facility] Last Admin: 03/06/18 21:11 Dose: 40 mg Promethazine HCl (Phenergan) 12.5 mg IV Q6H PRN PRN PRN Reason: NAUSEA/VOMITING Last Admin: 03/05/18 18:04 Dose: 12.5 mg Psyllium Hydrophilic Mucilloid (Metamucil) 1 packet PO DAILY PRN PRN PRN Reason: CONSTIPATION Sodium Chloride () 5 - 30 ml IV UD PRN PRN Reason: SALINE FLUSH Last Admin: 03/05/18 18:30 Dose: 10 ml Temazepam (Restoril) 30 mg PO QHS [facility] Last Admin: 03/06/18 21:10 Dose: 30 mg Tolterodine Tartrate (Detrol La) 4 mg PO QHS [facility] Last Admin: 03/06/18 21:13 Dose: 4 mg Medical Necessity - Tobacco Use Smoking Status: Current every day smoker Tobacco Use: Cigarettes Assessment/Plan All Active Problems (Last Reviewed 02/07/18 @ 14:36 by Crystal Ibanez) Viral illness (Acute) Cardiac enzymes elevated (Acute) History of right hip replacement (Acute) Broken ankle (Acute) S/P laparoscopic cholecystectomy (Acute) S/P appendectomy (Acute) Acidosis (Acute) Acute and chronic respiratory failure with hypoxia (Acute) Nicotine abuse (Acute) Acute respiratory failure with hypercapnia (Acute) Acute respiratory failure with hypoxia and hypercapnia (Acute) Acute exacerbation of chronic obstructive airways disease (Acute) Hypokalemia (Acute) Subtherapeutic serum dilantin level (Acute) Subtherapeutic phenobarb level (Acute) Fever (Acute) Fracture of left great toe (Resolved) Frequent falls (Resolved) 1. Systemic inflammatory response syndrome Present on arrival Infectious workup has been negative Fever is resolved stable off abx. 2. Elevated troponin of unclear etiology We will add aspirin and high intensity statin discontinue Lovenox Stress test negative Start Metoprolol Follow up with cardiology as outpt. Type 2 event from SIRS 3. Chronic pain Patient did have decreased respiratory rate today. I talked the patient about concern for overdose even if unintentional. Patient was dismissive of that notion as she has been on methadone for some period of time. I told her that while she is under my care will be judicious about narcotics and its are demonstrated risk for her. I told her that I will resume her methadone but at a reduced dose of 5 mg 3 times daily and only as needed not scheduled Patient may follow-up with Dr. Andujar as outpt No new events today, so will resume Methadone 10mg TID 4. DVT proph Change Lovenox to DVT prophylactic dosing
--- NOTE | 2018-03-07 16:14 | PN_ITS ---
Patient Problems: Active and Suspected Problems (Last Reviewed 02/07/18 @ 14:36 by Crystal Ibanez) Viral illness (Acute) Cardiac enzymes elevated (Acute) Subjective: Feels good. No new complaints. No shortness of breath. No chest pain. Vitals/I&O's: Vital Signs Temp Pulse Resp BP Pulse Ox 36.3 C L 81 16 142/81 H 96 03/07/18 03:07 03/07/18 15:14 03/07/18 13:16 03/07/18 03:07 03/07/18 13:16 Oxygen Flow Rate (L/min) 2 Oxygen Delivery Method Room Air Weight: 69.6 kg Body Mass Index (BMI) 25.5 Intake and Output for Last 24 Hours 03/05/18 03/06/18 03/07/18 23:59 23:59 23:59 Intake Total 3116 / 3116 200 / 200 Output Total 120 / 120 Balance 2996 / 2996 200 / 200 General: Alert, No apparent distress HEENT: Atraumatic, Normocephalic Oral: Moist Mucosa, No Gingival or Mucosal Lesions/ Ulcerations Neck: No Nodes, Thyroid Normal Size and Texture Lungs: Clear to auscultation, Normal air movement, No rhonchi, No wheeze Cardiovascular: Regular rate, Regular Rhythm, Normal S1, Normal S2, No murmurs Abdomen: Bowel Sounds Present, Soft, Non Tender, Non-Distended Microbiology Past 72 Hours 03/05/18 20:30 Mucosa - Nose Respiratory Panel (PCR) - Final Laboratory Results 03/06/18 16:08: Total Creatine Kinase 137 03/07/18 06:00: Sodium 145, Potassium 3.2 L, Chloride 110 H, Carbon Dioxide 26.0 , Anion Gap 9, BUN 18, Creatinine 0.66, Estim Creat Clear Calc 48.45, Est GFR ( MDRD) Af Amer 113, Est GFR (MDRD) Non-Af 94, BUN/Creatinine Ratio 27.1 H, Glucose 115 H, Calcium 7.8 L 03/07/18 06:00: WBC 8.2, RBC 4.00 L, Hgb 12.4, Hct 38.0, MCV 95.0, MCH 31.0, MCHC 32.6, RDW 14.4, RDW Differential 48.1 H, Plt Count 171, MPV 10.2, Immature Gran % (Auto) 0.100, Neut % (Auto) 62.6, Lymph % (Auto) 24.3, [place] % (Auto) 10.0 , Eos % (Auto) 2.3, Baso % (Auto) 0.7, Absolute Neuts (auto) 5.2, Absolute Lymphs (auto) 2.00, Total Counted Not Reportable 03/07/18 06:00: PT 14.2, INR 1.1, APTT 32.0 Current Medications Acetaminophen (Tylenol) 650 mg PO Q6H PRN PRN PRN Reason: Non-cardiac pain (mod-severe) Al Hydroxide/Mg Hydroxide (Mylanta Ii) 30 ml PO Q6H PRN PRN PRN Reason: Gastric burning Albuterol Sulfate (Ventolin Aerosols) 2.5 mg INHALATION Q2H PRN PRN PRN Reason: dyspnea, wheezing Albuterol Sulfate (Ventolin Aerosols) 2.5 mg INHALATION Q6HWA.RT [facility] Albuterol/Ipratropium (Duoneb) 3 ml INHALATION Q6HWA.RT [facility] Last Admin: 03/07/18 13:16 Dose: 3 ml Alendronate Sodium (Fosamax) 70 mg PO FR [facility] Amlodipine Besylate (Norvasc) 2.5 mg PO DAILY [facility] Last Admin: 03/07/18 11:11 Dose: 2.5 mg Aspirin (Aspirin, Baby) 81 mg PO DAILY@0800 [facility] Last Admin: 03/07/18 05:33 Dose: 81 mg Budesonide (Pulmicort Aerosol) 0.5 mg INHALATION Q12H.RT [facility] Last Admin: 03/07/18 07:38 Dose: 0.5 mg Bupropion HCl (Wellbutrin Sr (150mg Tablets)) 150 mg PO BID [facility] Last Admin: 03/07/18 11:11 Dose: 150 mg Calcium/Vitamin D (Os-Nolan 500mg + D) 1 tablet PO DAILY@0800 [facility] Last Admin: 03/07/18 11:10 Dose: 1 tablet Clotrimazole (Lotrimin) 1 applicatio TOPICAL BID PRN PRN; Protocol PRN Reason: redness Cyclobenzaprine HCl (Flexeril) 10 mg PO TID PRN PRN Reason: MUSCLE SPASM Last Admin: 03/07/18 12:17 Dose: 10 mg Enoxaparin Sodium (Lovenox) 40 mg SC DAILY@0600 [facility] Last Admin: 03/07/18 05:34 Dose: Not Given Ergocalciferol (Vitamin D) 50,000 unit PO [facility] Etodolac (Lodine) 400 mg PO BID [facility] Last Admin: 03/07/18 11:10 Dose: 400 mg Famotidine (Pepcid) 20 mg PO BID [facility] Last Admin: 03/07/18 11:11 Dose: 20 mg Furosemide (Lasix) 40 mg PO DAILY [facility] Last Admin: 03/07/18 11:10 Dose: Not Given Gab[facility] ([facility]ontin) [facility] Last Admin: 03/07/18 11:10 Dose: 300 mg Latanoprost (Xalatan Opthalmic) [facility] Admin: 03/06/18 21:12 Dose: 1 drop Magnesium Hydroxide (Milk Of Magnesia) 30 ml PO DAILY PRN PRN Reason: Constipation Methadone HCl () 5 mg PO Q8H PRN PRN PRN Reason: PAIN Last Admin: 03/07/18 14:08 Dose: 5 mg Mirtazapine (Remeron) [facility] Last Admin: 03/06/18 21:13 Dose: 15 mg Nitroglycerin (Nitrostat) 0.4 mg SUBLINGUAL Q5M PRN PRN Reason: CHEST PAIN Ondansetron HCl (Zofran) 4 mg IV Q8H PRN PRN PRN Reason: NAUSEA Phenobarbital (Phenobarbital) 32.4 mg PO BID [facility] Last Admin: 03/07/18 11:15 Dose: 32.4 mg Phenytoin Sodium (Dilantin) 100 [facility] Last Admin: 03/07/18 11:10 Dose: 100 mg Potassium Chloride (K-Dur) 20 meq [facility] Last Admin: 03/07/18 11:09 Dose: 20 meq Pramipexole Dihydrochloride (Mirapex) [facility] Last Admin: 03/06/18 21:11 Dose: 1 mg Pravastatin Sodium (Pravachol) 40 [facility] Last Admin: 03/06/18 21:11 Dose: 40 mg Promethazine HCl (Phenergan) 12.5 mg IV Q6H PRN PRN PRN Reason: NAUSEA/VOMITING Last Admin: 03/05/18 18:04 Dose: 12.5 mg Psyllium Hydrophilic Mucilloid (Metamucil) 1 packet PO DAILY PRN PRN PRN Reason: CONSTIPATION Sodium Chloride () 5 - 30 ml IV UD PRN PRN Reason: SALINE FLUSH Last Admin: 03/05/18 18:30 Dose: 10 ml Temazepam (Restoril) 30 mg PO QHS [facility] Last Admin: 03/06/18 21:10 Dose: 30 mg Tolterodine Tartrate (Detrol La) 4 mg PO QHS [facility] Last Admin: 03/06/18 21:13 Dose: 4 mg Medical Necessity - Tobacco Use Smoking Status: Current every day smoker Tobacco Use: Cigarettes Assessment/Plan All Active Problems (Last Reviewed 02/07/18 @ 14:36 by Crystal Ibanez) Viral illness (Acute) Cardiac enzymes elevated (Acute) History of right hip replacement (Acute) Broken ankle (Acute) S/P laparoscopic cholecystectomy (Acute) S/P appendectomy (Acute) Acidosis (Acute) Acute and chronic respiratory failure with hypoxia (Acute) Nicotine abuse (Acute) Acute respiratory failure with hypercapnia (Acute) Acute respiratory failure with hypoxia and hypercapnia (Acute) Acute exacerbation of chronic obstructive airways disease (Acute) Hypokalemia (Acute) Subtherapeutic serum dilantin level (Acute) Subtherapeutic phenobarb level (Acute) Fever (Acute) Fracture of left great toe (Resolved) Frequent falls (Resolved) 1. Systemic inflammatory response syndrome Present on arrival Infectious workup has been negative Fever is resolved stable off abx. 2. Elevated troponin of unclear etiology We will add aspirin and high intensity statin discontinue Lovenox Stress test negative Start Metoprolol Follow up with cardiology as outpt. Type 2 event from SIRS 3. Chronic pain Patient did have decreased respiratory rate today. I talked the patient about concern for overdose even if unintentional. Patient was dismissive of that notion as she has been on methadone for some period of time. I told her that while she is under my care will be judicious about narcotics and its are demonstrated risk for her. I told her that I will resume her methadone but at a reduced dose of 5 mg 3 times daily and only as needed not scheduled Patient may follow-up with Dr. Andujar as outpt No new events today, so will resume Methadone 10mg TID 4. DVT proph Change Lovenox to DVT prophylactic dosing
--- NOTE | 2018-03-07 16:21 | PCM.DC ---
- Discharge Diagnoses Current Active Problems: Current Active and Chronic Problems (Last Reviewed 02/07/18 @ 14:36 by Crystal Ibanez) Viral illness (Acute) Cardiac enzymes elevated (Acute) Tobacco use (Chronic) You will use the following diet at home:: Cardiac Your food should be the consistency of: Regular Your liquids should be the consistency of: Regular/Thin Discharge Activity: Return to Normal Activity Call your doctor if you observe: Fever of 101 or Higher, Shortness of breath, Chest pain Allergies/Adverse Reactions: Allergies Penicillins Allergy (Verified 03/05/18 13:59) Anaphylaxis codeine Adverse Reaction (Verified 03/05/18 13:59) Nausea Medications to take at Discharge Albuterol Aerosols [Ventolin Aerosols] 2.5 mg INHALATION Q4H PRN 05/12/16 Alendronate Sodium [Fosamax] 70 mg PO FR 05/12/16 Calcium Carbonate/Vitamin D3 [Oyster Shell 500-Vit D3 200 Tb] 1 ea PO DAILY 05/12/16 Etodolac 400 mg PO BID 05/12/16 Fluticasone/Salmeterol [Advair 250/50 Mcg Diskus] 2 puff INHALATION BID 05/12/16 Gabapentin [Neurontin] 300 mg PO BID 05/12/16 Phenytoin Na [Dilantin] 100 mg PO 4X/DAY 05/12/16 Ropinirole HCl [Requip] 2 mg PO QHS 05/12/16 Tolterodine Tartrate [Detrol LA] 4 mg PO QHS 05/12/16 Temazepam [Restoril] 30 mg PO QHS 06/24/17 Mirtazapine [Remeron] 15 mg PO QHS 07/03/17 Latanoprost 0.005% [Xalatan Opthalmic] 1 drp EACH EYE QHS 07/04/17 Furosemide [Lasix] 40 mg PO DAILY 09/04/17 Methadone HCl 10 mg PO TID 09/04/17 Amlodipine [Norvasc] 2.5 mg PO DAILY 11/07/17 Clotrimazole [Lotrimin] 1 applicatio TOPICAL BID PRN PRN 11/07/17 Ergocalciferol [Vitamin D] 50,000 units PO MO 11/07/17 Phenobarbital 32.4 mg PO TID 11/07/17 Potassium Chloride [K-Dur] 20 meq PO DAILY 11/07/17 Pravastatin [Pravachol] 40 mg PO QHS 11/07/17 Ranitidine [Zantac] 300 mg PO DAILY 11/07/17 buPROPion SR [Wellbutrin SR (150mg tablets)] 150 mg PO BID 11/07/17 Cyclobenzaprine [Flexeril] 10 mg PO TID PRN #20 tab 12/20/17 Acetaminophen [Tylenol Tablet] 650 mg PO Q6H PRN PRN tablet 03/07/18 Aspirin [Aspirin, Baby] 81 mg PO DAILY@0800 tab.chew 03/07/18 Metoprolol Tartrate 25 mg PO BID #60 tab 03/07/18 Potassium Chloride [K-Dur] 10 meq PO DAILY #30 tab 03/07/18 The following prescriptions were given: Potassium Chloride [K-Dur] 10 meq PO DAILY #30 tab Metoprolol Tartrate 25 mg PO BID #60 tab Primary Care Physician: Patel Veliz Chi, MD [Primary Care Provider] - Within 2 Weeks Test Results: Test results from this visit will be discussed in further detail at your follow-up appointment, if applicable. Please Follow Up With: Patel Veliz Chi, MD Proposed Discharge Date: 03/07/18
--- NOTE | 2018-03-07 16:22 | PCM.DC.SUM ---
Discharge Date and Diagnosis - Problem List Patient Problems: Active and Suspected Problems (Last Reviewed 02/07/18 @ 14:36 by Crystal Ibanez) SIRS (systemic inflammatory response syndrome) (Acute) Viral illness (Acute) Cardiac enzymes elevated (Acute) Date of Admission: 03/05/18 Date of Discharge: 03/07/18 - Primary Discharge Diagnosis Active and Suspected Problems (Last Reviewed 02/07/18 @ 14:36 by Crystal Ibanez) SIRS (systemic inflammatory response syndrome) (Acute) Viral illness (Acute) Cardiac enzymes elevated (Acute) - Secondary Discharge Diagnosis Chronic Problems (Last Reviewed 02/07/18 @ 14:36 by Crystal Ibanez) Tobacco use (Chronic) Generalized weakness (Chronic) Debility (Chronic) Depression (Chronic) Insomnia (Chronic) She takes Temazepam every night for sleep, prescribed by Dr. Veliz Hypertension (Chronic) Physical debility (Chronic) Degenerative disc disease, lumbar (Chronic) Pain, chronic (Chronic) Seizure disorder (Chronic) Restless leg syndrome (Chronic) COPD (chronic obstructive pulmonary disease) (Chronic) 1 ppd now smoker 4 ppd Obstructive sleep apnea (Chronic) non-compliant with CPAP but has oxygen to wear at night Smokes with greater than 40 pack year history (Chronic) Hospital Course and Treatment Imaging Results: Clinical Impression(s) from Imaging Studies Chest X-Ray 03/05/18 14:08 IMPRESSION: Stable examination demonstrating no acute cardiopulmonary process. Electronically Signed: Elsie Umaña MD at 15:33 EDT Tel , Service support , Brain CT 03/05/18 14:15 IMPRESSION: Chronic involutional changes of the brain. Electronically Signed: Ang Mazariegos MD at 15:29 EDT , Service support , Operations: None Procedures: 2-D Echocardiogram, Stress test Summary of Care Provided: The patient is a 67 year old F presents with SIRS. 1. Systemic inflammatory response syndrome Present on arrival Infectious workup has been negative, likely viral. Fever is resolved stable off abx. 2. Elevated troponin of unclear etiology We will add aspirin and high intensity statin discontinue Lovenox Stress test negative Start Metoprolol Follow up with cardiology as outpt. Type 2 event from SIRS 3. Chronic pain Patient did have decreased respiratory rate today. I talked the patient about concern for overdose even if unintentional. Patient was dismissive of that notion as she has been on methadone for some period of time. I told her that while she is under my care will be judicious about narcotics and its are demonstrated risk for her. I told her that I will resume her methadone but at a reduced dose of 5 mg 3 times daily and only as needed not scheduled Patient may follow-up with Dr. Andujar as outpt No new events today, so will resume Methadone 10mg TID[] Discharge Diet: Low fat/ Low Cholesterol Discharge Activity: Return to Normal Activity Call your doctor if you observe: Fever of 101 or Higher, Shortness of breath, Chest pain Home Medications: Medications to take at Discharge Albuterol Aerosols [Ventolin Aerosols] 2.5 mg INHALATION Q4H PRN 05/12/16 Alendronate Sodium [Fosamax] 70 mg PO FR 05/12/16 Calcium Carbonate/Vitamin D3 [Oyster Shell 500-Vit D3 200 Tb] 1 ea PO DAILY 05/12/16 Etodolac 400 mg PO BID 05/12/16 Fluticasone/Salmeterol [Advair 250/50 Mcg Diskus] 2 puff INHALATION BID 05/12/16 Gabapentin [Neurontin] 300 mg PO BID 05/12/16 Phenytoin Na [Dilantin] 100 mg PO 4X/DAY 05/12/16 Ropinirole HCl [Requip] 2 mg PO QHS 05/12/16 Tolterodine Tartrate [Detrol LA] 4 mg PO QHS 05/12/16 Temazepam [Restoril] 30 mg PO QHS 06/24/17 Mirtazapine [Remeron] 15 mg PO QHS 07/03/17 Latanoprost 0.005% [Xalatan Opthalmic] 1 drp EACH EYE QHS 07/04/17 Furosemide [Lasix] 40 mg PO DAILY 09/04/17 Methadone HCl 10 mg PO TID 09/04/17 Amlodipine [Norvasc] 2.5 mg PO DAILY 11/07/17 Clotrimazole [Lotrimin] 1 applicatio TOPICAL BID PRN PRN 11/07/17 Ergocalciferol [Vitamin D] 50,000 units PO MO 11/07/17 Phenobarbital 32.4 mg PO TID 11/07/17 Potassium Chloride [K-Dur] 20 meq PO DAILY 11/07/17 Pravastatin [Pravachol] 40 mg PO QHS 11/07/17 Ranitidine [Zantac] 300 mg PO DAILY 11/07/17 buPROPion SR [Wellbutrin SR (150mg tablets)] 150 mg PO BID 11/07/17 Cyclobenzaprine [Flexeril] 10 mg PO TID PRN #20 tab 12/20/17 Acetaminophen [Tylenol Tablet] 650 mg PO Q6H PRN PRN tablet 03/07/18 Aspirin [Aspirin, Baby] 81 mg PO DAILY@0800 tab.chew 03/07/18 Metoprolol Tartrate 25 mg PO BID #60 tab 03/07/18 Potassium Chloride [K-Dur] 10 meq PO DAILY #30 tab 03/07/18 Following Prescrptions Were Given to Patient: Potassium Chloride [K-Dur] 10 meq PO DAILY #30 tab Metoprolol Tartrate 25 mg PO BID #60 tab Primary Care Physician: Patel Veliz Chi, MD [Primary Care Provider] - Within 2 Weeks Please Follow Up With: Patel Veliz Chi, MD Please Follow Up With: Tank Hernandez MD When: 4-6 weeks Disposition: Home with Home Health Minutes spent on discharge:: 32 Patient Condition:: Fair Medical Necessity - Tobacco Use Smoking Status: Current every day smoker Tobacco Use: Cigarettes Meaningful Use Info Meaningful Use Diagnoses (Choose all that apply): None applicable Code Visit Inpatient E&M: 87521 Disch Hosp
--- NOTE | 2018-03-07 16:25 | DS.PCM_ITS ---
Discharge Date and Diagnosis - Problem List Patient Problems: Active and Suspected Problems (Last Reviewed 02/07/18 @ 14:36 by Crystal Ibanez) SIRS (systemic inflammatory response syndrome) (Acute) Viral illness (Acute) Cardiac enzymes elevated (Acute) Date of Admission: 03/05/18 Date of Discharge: 03/07/18 - Primary Discharge Diagnosis Active and Suspected Problems (Last Reviewed 02/07/18 @ 14:36 by Crystal Ibanez) SIRS (systemic inflammatory response syndrome) (Acute) Viral illness (Acute) Cardiac enzymes elevated (Acute) - Secondary Discharge Diagnosis Chronic Problems (Last Reviewed 02/07/18 @ 14:36 by Crystal Ibanez) Tobacco use (Chronic) Generalized weakness (Chronic) Debility (Chronic) Depression (Chronic) Insomnia (Chronic) She takes Temazepam every night for sleep, prescribed by Dr. Veliz Hypertension (Chronic) Physical debility (Chronic) Degenerative disc disease, lumbar (Chronic) Pain, chronic (Chronic) Seizure disorder (Chronic) Restless leg syndrome (Chronic) COPD (chronic obstructive pulmonary disease) (Chronic) 1 ppd now smoker 4 ppd Obstructive sleep apnea (Chronic) non-compliant with CPAP but has oxygen to wear at night Smokes with greater than 40 pack year history (Chronic) Hospital Course and Treatment Imaging Results: Clinical Impression(s) from Imaging Studies Chest X-Ray 03/05/18 14:08 IMPRESSION: Stable examination demonstrating no acute cardiopulmonary process. Electronically Signed: Elsie Umaña MD at 15:33 EDT Tel , Service support , Brain CT 03/05/18 14:15 IMPRESSION: Chronic involutional changes of the brain. Electronically Signed: Ang Mazariegos MD at 15:29 EDT , Service support , Operations: None Procedures: 2-D Echocardiogram, Stress test Summary of Care Provided: The patient is a 67 year old F presents with SIRS. 1. Systemic inflammatory response syndrome Present on arrival Infectious workup has been negative, likely viral. Fever is resolved stable off abx. 2. Elevated troponin of unclear etiology We will add aspirin and high intensity statin discontinue Lovenox Stress test negative Start Metoprolol Follow up with cardiology as outpt. Type 2 event from SIRS 3. Chronic pain Patient did have decreased respiratory rate today. I talked the patient about concern for overdose even if unintentional. Patient was dismissive of that notion as she has been on methadone for some period of time. I told her that while she is under my care will be judicious about narcotics and its are demonstrated risk for her. I told her that I will resume her methadone but at a reduced dose of 5 mg 3 times daily and only as needed not scheduled Patient may follow-up with Dr. Andujar as outpt No new events today, so will resume Methadone 10mg TID[] Discharge Diet: Low fat/ Low Cholesterol Discharge Activity: Return to Normal Activity Call your doctor if you observe: Fever of 101 or Higher, Shortness of breath, Chest pain Home Medications: Medications to take at Discharge Albuterol Aerosols [Ventolin Aerosols] 2.5 mg INHALATION Q4H PRN 05/12/16 Alendronate Sodium [Fosamax] 70 mg PO FR 05/12/16 Calcium Carbonate/Vitamin D3 [Oyster Shell 500-Vit D3 200 Tb] 1 ea PO DAILY Etodolac 400 mg PO BID 05/12/16 Fluticasone/Salmeterol [Advair 250/50 Mcg Diskus] 2 puff INHALATION BID Gabapentin [Neurontin] 300 mg PO BID 05/12/16 Phenytoin Na [Dilantin] 100 mg PO 4X/DAY 05/12/16 Ropinirole HCl [Requip] 2 mg PO QHS 05/12/16 Tolterodine Tartrate [Detrol LA] 4 mg PO QHS 05/12/16 Temazepam [Restoril] 30 mg PO QHS 06/24/17 Mirtazapine [Remeron] 15 mg PO QHS 07/03/17 Latanoprost 0.005% [Xalatan Opthalmic] 1 drp EACH EYE QHS 07/04/17 Furosemide [Lasix] 40 mg PO DAILY 09/04/17 Methadone HCl 10 mg PO TID 09/04/17 Amlodipine [Norvasc] 2.5 mg PO DAILY 11/07/17 Clotrimazole [Lotrimin] 1 applicatio TOPICAL BID PRN PRN 11/07/17 Ergocalciferol [Vitamin D] 50,000 units PO MO 11/07/17 Phenobarbital 32.4 mg PO TID 11/07/17 Potassium Chloride [K-Dur] 20 meq PO DAILY 11/07/17 Pravastatin [Pravachol] 40 mg PO QHS 11/07/17 Ranitidine [Zantac] 300 mg PO DAILY 11/07/17 buPROPion SR [Wellbutrin SR (150mg tablets)] 150 mg PO BID 11/07/17 Cyclobenzaprine [Flexeril] 10 mg PO TID PRN #20 tab 12/20/17 Acetaminophen [Tylenol Tablet] 650 mg PO Q6H PRN PRN tablet 03/07/18 Aspirin [Aspirin, Baby] 81 mg PO DAILY@0800 tab.chew 03/07/18 Metoprolol Tartrate 25 mg PO BID #60 tab 03/07/18 Potassium Chloride [K-Dur] 10 meq PO DAILY #30 tab 03/07/18 Following Prescrptions Were Given to Patient: Potassium Chloride [K-Dur] 10 meq PO DAILY #30 tab Metoprolol Tartrate 25 mg PO BID #60 tab Primary Care Physician: Patel Veliz Chi, MD [Primary Care Provider] - Within 2 Weeks Please Follow Up With: Patel Veliz Chi, MD Please Follow Up With: Tank Hernandez MD When: 4-6 weeks Disposition: Home with Home Health Minutes spent on discharge:: 32 Patient Condition:: Fair Medical Necessity - Tobacco Use Smoking Status: Current every day smoker Tobacco Use: Cigarettes Meaningful Use Info Meaningful Use Diagnoses (Choose all that apply): None applicable Code Visit Inpatient E&M: 88561 Disch Hosp
--- NOTE | 2018-03-08 14:45 | CASEMGMT ---
ERIC BELLE Discharge F/U Phone Call LACE: 14 Strata: 4 Discharge date: 03/07/18 Call date: 03/08/18 Call time: [id number] Duration: 3 minutes Admission dx: Viral syndrome, elevated cardiac enzymes Pt states has been 'feeling ok' since discharge yesterday. Pt states that she just tried to go to PCP appt and it had been changed to 03/14/18 and she states she was not aware. Pt states no questions regarding discharge instructions or medications. Pt states plans to f/u with Jose Alfredo again on 03/14/18. Pt states that her aides have been set up to keep coming out to house and states no further questions/concerns/needs at this time. [place] ERIC BELLE
== END 2018-03-07 19:20 | disposition home or self-care (01) | DRG 866 ==
LOC: ED 15:00 → PCU 16:31
PROVIDERS: Family Medicine; Admitting Provider Family Medicine; Emergency Provider Emergency Medicine; Family Provider Family Medicine Geriatric Medicine; PCP Family Medicine Geriatric Medicine
DX: B34.9 Viral infection, unspecified (principal); J96.11 Chronic respiratory failure with hypoxia; G40.909 Epilepsy, unspecified, not intractable, without status epilepticus; G89.4 Chronic pain syndrome; R74.8 Abnormal levels of other serum enzymes; G25.81 Restless legs syndrome; J44.9 Chronic obstructive pulmonary disease, unspecified; G47.33 Obstructive sleep apnea (adult) (pediatric); F17.210 Nicotine dependence, cigarettes, uncomplicated; I10 Essential (primary) hypertension; G47.00 Insomnia, unspecified; Z99.81 Dependence on supplemental oxygen
CPT/HCPCS: 36415; 70450; 71045; 78452; 80048; 80053; 80061; 81001; 82550; 83605; 83735; 83880; 84484; 85025; 85027; 85610; 85730; 87040; 87086; 87633; 93005; 93017; 93306; 94002; 94003; 94640; 97162; 97166; 97530; 97535; 97802; 99285; 99406; A9500; J7030; J7040; P9612; A4216; J2405; J2785

== ENCOUNTER → 2018-03-14 15:02 | Outpatient (CLI) | payer MEDICARE, SELFPAY ==
[2018-03-14 16:32] LABS: Absolute Lymphocyte Count 2.31 X10^3/ul (0.83-4.51); Absolute Neutrophil Count 2.8 X10^3/uL (2.0-7.7); Basophil# 0.03 X10^3/uL; Basophil% 0.5 % (0-1); Eosinophil# 0.59 X10^3/uL; Eosinophils% 9.3 % (0-5); Hematocrit 43.6 % (37-47); Hemoglobin 14.5 g/dl (12.0-15.0); Lymphocyte # 2.31 X10^3/ul (4.0); Lymphocyte % 36.5 % (19-41); Mean Corp Hgb Conc 33.3 g/gl (32-36); Mean Corpuscular Hgb 31.5 pg (27.0-32.0); Mean Corpuscular Volume 94.8 fL (81-99); Mean Platelet Vol. 11.3 fl (6.2-12.0); Monocyte# 0.57 X10^3/uL; Neutrophil # 2.82 X10^3/uL (2.7-7.7); Neutrophil % 44.5 % (47-70); Platelet Count 239 K/mm3 (150-450); RBC Distribution Width CV 14.5 % (11.6-14.6); RBC Distribution Width SD 48.2 fl (35.1-43.9); White Blood Count 6.3 K/mm3 (4.4-11.0)
[2018-03-14 16:35] LABS: AST(SGOT) 42 U/L (15-37); Alanine Aminotransfer ALT/SGPT 48 U/L (13-56); Albumin, Serum 3.5 g/dL (3.2-5.0); Alkaline Phosphatase 88 U/L (45-117); Anion Gap 8 (5-15); BUN 17 mg/dL (7-18); BUN/Creat Ratio 22.1 RATIO (10-20); Calcium,Total 8.4 mg/dL (8.5-10.1); Chloride 103 mmol/L (98-107); Creatinine, Serum 0.77 mg/dL (0.55-1.02); EST Glomerular Filtration Rate 79 mL/min (>60); Est Glom Filt Rate - Afr Amer 96 mL/min (>60); Globulin 3.6 g/dL (2.2-4.2); Glucose 125 mg/dL (74-106); Protein, Total 7.1 g/dL (6.4-8.2); Sodium Level 138 mmol/L (136-145); Thyroid Stim Hormone (TSH) 1.42 uIU/mL (0.358-3.74)
[2018-03-14 16:38] LABS: POSITIVE COUNT NO; POSITIVE DIFFERENTIAL NO; POSITIVE MORPHOLOGY NO
[2018-03-14 16:41] LABS: Vitamin D,25 Hydroxy 33.8 ng/mL (29.95-100.01)
== END ==
PROVIDERS: Family Provider Family Medicine Geriatric Medicine; PCP Family Medicine Geriatric Medicine; Visit Provider Family Medicine Geriatric Medicine
DX: E55.9 Vitamin D deficiency, unspecified (principal); I10 Essential (primary) hypertension
CPT/HCPCS: 36415; 80053; 82306; 84443; 85025

== ENCOUNTER 2018-03-19 20:17 | Inpatient (IN) | payer MEDICARE, SELFPAY ==
[2018-03-19 20:18] VITALS: BP 109/71; PULSE 83; RESP 20; TEMP 37.1; O2SAT 96; BMI 23.7
--- NOTE | 2018-03-19 20:45 | CT_ITS ---
STUDY: CT ABDOMEN AND PELVIS WITHOUT CONTRAST REASON FOR EXAM: Female, 67 years old. Nausea, vomiting, cough RADIATION DOSAGE (If Supplied By Facility): CTDIvol = ( 9.14 ) mGy, DLP = ( 416.51 ) mGycm TECHNIQUE: Transaxial images were obtained from the dome of the diaphragm to the symphysis pubis without oral contrast, and without intravenous contrast. Sagittal and coronal images were reconstructed. Individualized dose optimization techniques were used for this CT. COMPARISON: 02/24/2018 FINDINGS: There are chronic interstitial fibrotic changes of the lung bases. The visualized portions of the heart are within normal limits. Liver is unremarkable aside from stable intrahepatic biliary dilatation, patient has had a previous cholecystectomy. Normal spleen. Normal pancreas. Normal bilateral adrenal glands. Normal right kidney. Normal left kidney. Normal visualized stomach. Normal small intestine. Retained stool noted throughout the colon. Scattered colonic diverticula noted. There is non-visualization of the appendix. There is diffuse atherosclerotic calcification of the abdominal aorta, without a demonstrated aneurysm. Normal inferior vena cava. Normal retroperitoneum. Normal urinary bladder. Uterus is still present, the endometrium cannot be accurately evaluated with CT. Normal abdominal wall. There are diffuse degenerative changes of the visualized lumbar spine. CT/Abdomen/Pelvis without Cont IMPRESSION: No suspicious solid organ abnormality, changes consistent with previous cholecystectomy Retained stool noted throughout the colon. Scattered colonic diverticulosis Uterus is still present, the endometrium cannot be accurately evaluated with CT. Degenerative bony changes Electronically Signed: Edison Lawrence MD at 21:50 EDT , Service support ,
--- NOTE | 2018-03-19 20:48 | RAD_ITS ---
STUDY: X-RAY CHEST REASON FOR EXAM: Female, 67 years old. Cough. TECHNIQUE: Portable chest. COMPARISON: 03/05/2018. FINDINGS: The lungs are clear and expanded. There is no demonstrated pleural abnormality. Normal size heart. Normal mediastinum and denae. Normal visualized pulmonary arteries. Normal visualized aortic arch and descending thoracic aorta. There are mild degenerative changes of the shoulders bilaterally. Soft tissues and bony structures are otherwise unremarkable. RAD/Chest 1 View (Portable) IMPRESSION: No acute process. Electronically Signed: Gabby Medina MD at 21:00 EDT Tel , Service support ,
[2018-03-19 20:56] LABS: Absolute Lymphocyte Count 2.78 X10^3/ul (0.83-4.51); Absolute Neutrophil Count 4.1 X10^3/uL (2.0-7.7); Basophil# 0.07 X10^3/uL; Basophil% 0.8 % (0-1); Eosinophil# 0.47 X10^3/uL; Eosinophils% 5.6 % (0-5); Hematocrit 41.6 % (37-47); Hemoglobin 13.8 g/dl (12.0-15.0); Lymphocyte # 2.78 X10^3/ul (4.0); Lymphocyte % 33.3 % (19-41); Mean Corp Hgb Conc 33.2 g/gl (32-36); Mean Corpuscular Hgb 31.7 pg (27.0-32.0); Mean Corpuscular Volume 95.4 fL (81-99); Mean Platelet Vol. 9.9 fl (6.2-12.0); Monocyte# 0.91 X10^3/uL; Monocyte% 10.9 % (0-10); POSITIVE DIFFERENTIAL NO; POSITIVE MORPHOLOGY NO; Platelet Count 262 K/mm3 (150-450); RBC Distribution Width CV 14.4 % (11.6-14.6); RBC Distribution Width SD 48.2 fl (35.1-43.9); Red Blood Count 4.36 M/mm3 (4.2-5.4); White Blood Count 8.4 K/mm3 (4.4-11.0)
[2018-03-19 20:57] LABS: POSITIVE COUNT NO
[2018-03-19] MEDS: fentaNYL 100 MCG/2 ML Ampul 25 MCG IV (20:58)
[2018-03-19] MEDS: 0.9% Normal Saline 1,000 ML 150 ML IV (20:58)
[2018-03-19] MEDS: Ondansetron 4 MG/2 ML Vial IV (20:58)
[2018-03-19 21:16] LABS: AST(SGOT) 18 U/L (15-37); Alanine Aminotransfer ALT/SGPT 29 U/L (13-56); Albumin, Serum 3.2 g/dL (3.2-5.0); Alkaline Phosphatase 77 U/L (45-117); Anion Gap 9 (5-15); BUN 21 mg/dL (7-18); BUN/Creat Ratio 34.1 RATIO (10-20); Chloride 103 mmol/L (98-107); Creatinine, Serum 0.62 mg/dL (0.55-1.02); EST Glomerular Filtration Rate 102 mL/min (>60); Est Glom Filt Rate - Afr Amer 124 mL/min (>60); Estimated Creatinine Clearance 56.27 ml/min; Globulin 3.6 g/dL (2.2-4.2); Glucose 117 mg/dL (74-106); Potassium 3.9 mmol/L (3.5-5.1); Protein, Total 6.8 g/dL (6.4-8.2); Sodium Level 141 mmol/L (136-145)
[2018-03-19 21:17] LABS: Phenytoin (Dilantin) Level 9.8 mL (10.0-20.0)
[2018-03-19 21:45] VITALS: BP 101/63; PULSE 73
[2018-03-19 21:58] VITALS: BP 97/63; PULSE 67; RESP 14; O2SAT 97
[2018-03-19 21:59] LABS: Mucous, Urine 0 SEEN /hpf (<or=2+); Red Blood Cells-Urine 0 SEEN /hpf (0-5); Squamous Epithelial Cells - UA 0 SEEN /hpf (5-10)
[2018-03-19 22:03] LABS: Color, Urine Yellow (Yellow); Glucose, Dipstick Normal (Normal); Ketone-Dipstick Negative (Negative); Leukocyte Esterase-Dipstick 100 /ul (Negative); Nitrite-Dipstick Negative (Negative); Occult Blood-Urine Negative /ul (Negative); Protein-Dipstick Negative (Negative); Urine Clarity Clear (Clear); Urine Urobilinogen Normal (Normal); Urine pH 6.5 (5.0 - 8.0)
[2018-03-19 22:09] LABS: Urine Bilirubin Dipstick 3 mg/dL (Negative)
[2018-03-19 22:13] LABS: Bacteria 3+ /hpf (None Seen); White Blood Cells 10-25 SEEN /hpf (0-5)
[2018-03-19] MEDS: 0.9% Normal Saline 1,000 ML 999 ML IV (22:50)
[2018-03-19] MEDS: Ceftriaxone 1 GM/50 ML BAG IV (22:50)
[2018-03-19 22:54] VITALS: BP 106/61; PULSE 70; RESP 13; O2SAT 96
--- NOTE | 2018-03-19 22:59 | ED.VISSUMM ---
- ER Visit Summary Date of Service: 03/19/18 Chief Complaint: Nausea, vomiting, cough, abdominal pain History of Present Illness: The patient is a 67 F who states she started feeling ill last evening. She woke this morning with abdominal cramping and headache. She reports cough and posttussive emesis. She reports hot and cold flashes but did not measure her temperature. Past history significant for COPD, hypertension, high cholesterol, seizures. Physical Examination: Blood pressure is 109/71, temperature 98.7, respiratory rate 20, pulse ox 96% on room air. Patient is sitting upright in bed no acute distress. She appears uncomfortable. Head neck examination unremarkable. Heart is regular rate and rhythm. Lung sounds are clear. Abdomen is soft with mild diffuse tenderness. There is no guarding or rebound. Active bowel sounds are noted throughout. Skin examination reveals no rash or lesions Test Results: CBC and chemistry studies are unremarkable. LFTs normal. Dilantin level is borderline low at 9.8. Urinalysis reveals 10-25 white cells with 3+ bacteria. Emergency Department Course and Treatment: Patient was initially ordered a 500 cc fluid bolus followed by drip at 150. She was given a dose of fentanyl and Zofran. Systolic blood pressure was initially in the 90s on my evaluation. It continued to remain low in the 80s and 90s. Urine culture is sent. Patient is given a dose of Rocephin. An additional 1 L IV fluid boluses ordered along with a lactic acid level. Lactic acid returns at 1.8. Blood pressures have now been running in the 100-110 systolic range. At this time patient be admitted for further treatment and evaluation. Treatment Plan: [] Disposition: Admit Impression: 1. Cystitis 2. Hypotension, improved This note was generated with [employer] dictation software. It may contain incorrect words, spelling, and punctuation that were not noted in review of the chart prior to signing ED Disposition - Plan for ED Patient: Chief Complaint: General Illness Referrals: Patel Veliz Chi, MD [Primary Care Provider] -
[2018-03-19 23:22] LABS: Lactic Acid 1.8 mmol/L (0.4-2.0)
--- NOTE | 2018-03-19 23:54 | HP.PCM_ITS ---
Problem List (1) UTI (urinary tract infection) Status: Acute Qualifiers: Urinary tract infection type: acute cystitis (2) Tobacco use Status: Chronic (3) Depression Status: Chronic Qualifiers: Depression Type: unspecified Qualified Code(s): F32.9 - Major depressive disorder, single episode, unspecified (4) Insomnia Status: Chronic Qualifiers: Insomnia type: unspecified Qualified Code(s): G47.00 - Insomnia, unspecified Comment: She takes Temazepam every night for sleep, prescribed by Dr. Veliz (5) Hypertension Status: Chronic Qualifiers: Hypertension type: essential hypertension Qualified Code(s): I10 - Essential (primary) hypertension (6) Degenerative disc disease, lumbar Status: Chronic (7) Pain, chronic Status: Chronic Qualifiers: Chronic pain type: chronic pain syndrome Qualified Code(s): G89.4 - Chronic pain syndrome (8) Seizure disorder Status: Chronic (9) Restless leg syndrome Status: Chronic (10) COPD (chronic obstructive pulmonary disease) Status: Chronic Qualifiers: COPD type: unspecified COPD Qualified Code(s): J44.9 - Chronic obstructive pulmonary disease, unspecified Comment: 1 ppd now smoker 4 ppd (11) Obstructive sleep apnea Status: Chronic Comment: non-compliant with CPAP but has oxygen to wear at night (12) Smokes with greater than 40 pack year history Status: Chronic History of Present Illness Date of Admission: 03/19/18 Chief Complaint: N/V, dysuria The patient is a 67 y/o F w/ PMHx: Seizure disorder, Restless leg, CHUY noncompliant with CPAP, Chronic Hypoxic Respiratory Failure (2L NC q HS only), Tobacco use, Chronic COPD, Chronic pain syndrome, Hypertension, Anxiety and Depression/Insomnia who presents to the [facility] ED on 03/19/18 with history of progressively worsening nausea, emesis, suprapubic TTP, urinary frequency noted to be going nearly hourly in addition to dysuria x 24 hours prompting eventual presentation without fevers but noted chills. In the ED work-up included T 98.7, heart rate 83, BP 97/63, respiratory rate 20, 96% on room air, BC with WBC 8.4, hgb 13.8, platelet 262 without market left shift, CMP with BUN/creatinine 21/0.62, glucose 117, lactic acid 1.8, urinalysis concerning for urinary tract infection with pending urine culture per ED, chest x-ray with chronic changes, CT abdomen and pelvis with no acute findings, retained stool throughout the colon, scattered colonic diverticulosis. In the ED patient administered normal saline, Zofran, fentanyl, IV Rocephin. Following IV fluids in the ED patient blood pressure did improve. Past Medical History Past Medical History (Chronic Problems): Chronic Problems (Last Reviewed 02/07/18 @ 14:36 by Crystal Ibanez) Tobacco use (Chronic) Generalized weakness (Chronic) Debility (Chronic) Depression (Chronic) Insomnia (Chronic) She takes Temazepam every night for sleep, prescribed by Dr. Veliz Hypertension (Chronic) Physical debility (Chronic) Degenerative disc disease, lumbar (Chronic) Pain, chronic (Chronic) Seizure disorder (Chronic) Restless leg syndrome (Chronic) COPD (chronic obstructive pulmonary disease) (Chronic) 1 ppd now smoker 4 ppd Obstructive sleep apnea (Chronic) non-compliant with CPAP but has oxygen to wear at night Smokes with greater than 40 pack year history (Chronic) Medical History: Medical History (Last Reviewed 02/07/18 @ 14:36 by Crystal Ibanez) Acidosis (Acute) E87.2 Generalized weakness (Chronic) R53.1 Debility (Chronic) R53.81 Acute and chronic respiratory failure with hypoxia (Acute) J96.21 Nicotine abuse (Acute) Z72.0 Acute respiratory failure with hypercapnia (Acute) J96.02 Acute respiratory failure with hypoxia and hypercapnia (Acute) J96.01, J96.02 Acute exacerbation of chronic obstructive airways disease (Acute) J44.1 Hypokalemia (Acute) E87.6 Subtherapeutic serum dilantin level (Acute) R78.89 Subtherapeutic phenobarb level (Acute) Depression (Chronic) F32.9 Insomnia (Chronic) G47.00 She takes Temazepam every night for sleep, prescribed by Dr. Veliz Hypertension (Chronic) I10 Fever (Acute) R50.9 Physical debility (Chronic) R53.81 Degenerative disc disease, lumbar (Chronic) M51.36 Pain, chronic (Chronic) G89.29 Seizure disorder (Chronic) G40.909 Restless leg syndrome (Chronic) COPD (chronic obstructive pulmonary disease) (Chronic) J44.9 1 ppd now smoker 4 ppd Obstructive sleep apnea (Chronic) G47.33 non-compliant with CPAP but has oxygen to wear at night Smokes with greater than 40 pack year history (Chronic) F17.210 Allergies Penicillins Allergy (Verified 03/19/18 20:21) Anaphylaxis codeine Adverse Reaction (Verified 03/19/18 20:21) Nausea Home Medications: Ambulatory Orders Medication Instructions Recorded Albuterol Aerosols [Ventolin 2.5 mg INHALATION Q4H PRN 05/12/16 Aerosols] Alendronate Sodium [Fosamax] 70 mg PO FR 05/12/16 Calcium Carbonate/Vitamin D3 1 ea PO DAILY 05/12/16 [Oyster Shell 500-Vit D3 200 Tb] Etodolac 400 mg PO BID 05/12/16 Fluticasone/Salmeterol [Advair 2 puff INHALATION BID 05/12/16 250/50 Mcg Diskus] Gabapentin [Neurontin] 300 mg PO BID 05/12/16 Phenytoin Na [Dilantin] 100 mg PO 4X/DAY 05/12/16 Ropinirole HCl [Requip] 2 mg PO QHS 05/12/16 Tolterodine Tartrate [Detrol LA] 4 mg PO QHS 05/12/16 Temazepam [Restoril] 30 mg PO QHS 06/24/17 Mirtazapine [Remeron] 15 mg PO QHS 07/03/17 Latanoprost 0.005% [Xalatan 1 drp EACH EYE QHS 07/04/17 Opthalmic] Furosemide [Lasix] 40 mg PO DAILY 09/04/17 Methadone HCl 10 mg PO TID 09/04/17 Amlodipine [Norvasc] 2.5 mg PO DAILY 11/07/17 Clotrimazole [Lotrimin] 1 applicatio TOPICAL BID PRN PRN 11/07/17 Ergocalciferol [Vitamin D] 50,000 units PO MO 11/07/17 Phenobarbital 32.4 mg PO TID 11/07/17 Potassium Chloride [K-Dur] 20 meq PO DAILY 11/07/17 Pravastatin [Pravachol] 40 mg PO QHS 11/07/17 Ranitidine [Zantac] 300 mg PO DAILY 11/07/17 buPROPion SR [Wellbutrin SR (150mg 150 mg PO BID 11/07/17 tablets)] Cyclobenzaprine [Flexeril] 10 mg PO TID PRN #20 tab 12/20/17 Acetaminophen [Tylenol Tablet] 650 mg PO Q6H PRN PRN tablet 03/07/18 Aspirin [Aspirin, Baby] 81 mg PO DAILY@0800 tab.chew 03/07/18 Metoprolol Tartrate 25 mg PO BID #60 tab 03/07/18 Surgical History: Surgical History (Last Reviewed 02/07/18 @ 14:36 by Crystal Ibanez) History of right hip replacement (Acute) Z96.641 Broken ankle (Acute) S82.899A S/P laparoscopic cholecystectomy (Acute) Z90.49 S/P appendectomy (Acute) Z90.49 Surgical History: appendectomy, cholecystectomy, - - Fractured right ankle, carpal tunnel surgery, removal of teeth, right ovariectomy and fallopian tube removal. 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 Tobacco Use: Cigarettes Alcohol: None Drugs: None - *Family History Maternal Family History: Family History (Last Updated 02/07/18 @ 14:39 by Crystal Ibanez) Mother Diabetes Heart disease Hypertension CAD (coronary artery disease) CVA (cerebral vascular accident) History Items: Diabetes Paternal Family History: Family History (Last Updated 02/07/18 @ 14:39 by Crystal Ibanez) Mother Diabetes Heart disease Hypertension CAD (coronary artery disease) CVA (cerebral vascular accident) History Items: Cancer - colon Sibling Family History: Family History (Last Updated 02/07/18 @ 14:39 by Crystal Ibanez) Mother Diabetes Heart disease Hypertension CAD (coronary artery disease) CVA (cerebral vascular accident) History Items: No pertinent history Review of Systems Constitutional: Reports: Anorexia, Chills, Malaise, Weakness, Fatigue. Denies: Fever, Weight Change HEENT: Denies: Head Aches, Sinus Congestion, Sinus Drainage Cardiovascular: Denies: Chest Pain, Palpitations Respiratory: Denies: Cough, Shortness of breath at rest, Sputum production Gastrointestinal: Reports: Abdominal Pain, Nausea, Vomiting Genitourinary: Reports: Dysuria, Frequency Musculoskeletal: Denies: Joint Pain, Joint Tenderness Skin: Denies: Rash, Wounds Neurological: Denies: Numbness, Tingling, Focal weakness Psychiatric: Denies: Anxiety, Depression, Homicidal Ideations, Suicidal Ideations Hematologic/ Lymphatic: Denies: Easy Bruising, Easy Bleeding VTE Information - Inpt Only VTE Present on Admission: No VTE Mechan Device Prophylaxis: SCD's VTE Pharm Prophylaxis ordered?: Yes Patient Problems: Active and Suspected Problems (Last Reviewed 02/07/18 @ 14:36 by Crystal Ibanez) UTI (urinary tract infection) (Acute) Subjective: Seated upright in the ED bed, fatigued appearance, NAD. Objective: Physical Examination: General: awake, alert, oriented x 3 and cooperative, seated upright in the ED bed in no apparent distress, fatigued appearing. Skin: normal color, turgor, no icterus, cyanosis. HEENT: AT/NC, EOMI, PERRLA, dry MM, lacking dentition, no carotid bruits or JVD noted. Lungs: Diminished BS BL, > bases, mild effort, no rales, ronchi or wheezing. Heart: Regular rate and rhythm; no gallop, rub audible. Abdomen: soft, mild suprapubic TTP, ND, decreased BS, no HSM. Extremities: no cyanosis, clubbing, or edema. Neurological: patient awake, alert, oriented x 3; cognitive function intact; pupils equally reactive to light and accomodation; cranial nerves II-XII grossly normal, moving all 4 extremities, no focal deficits, strength moderately globally decreased secondary to acute presentation. Psychiatric: affect appears fatigued, no acute evidence of depressive or anxiety feelings. - Physical Exam Vital Signs Temp Pulse Resp BP Pulse Ox 98.7 F 70 13 106/61 96 03/19/18 20:18 03/19/18 22:54 03/19/18 22:54 03/19/18 22:54 03/19/18 22:54 Oxygen Delivery Method Room Air Weight: 160 lb 11.472 oz Body Mass Index (BMI) 23.7 Laboratory Tests Past 24 Hrs 03/19/18 03/19/18 03/19/18 20:25 20:25 20:25 WBC 8.4 RBC 4.36 Hgb 13.8 Hct 41.6 MCV 95.4 MCH 31.7 MCHC 33.2 RDW 14.4 RDW Differential 48.2 H Plt Count 262 MPV 9.9 Immature Gran % (Auto) 0.400 Neut % (Auto) 49.0 Lymph % (Auto) 33.3 [place] % (Auto) 10.9 H Eos % (Auto) 5.6 H Baso % (Auto) 0.8 Absolute Neuts (auto) 4.1 Absolute Lymphs (auto) 2.78 Total Counted Not Reportable Sodium 141 Potassium 3.9 Chloride 103 Carbon Dioxide 29.0 Anion Gap 9 BUN 21 H Creatinine 0.62 Estim Creat Clear Calc 56.27 Est GFR (MDRD) Af Amer 124 Est GFR (MDRD) Non-Af 102 BUN/Creatinine Ratio 34.1 H Glucose 117 H Lactic Acid Calcium 9.0 Total Bilirubin 0.20 Direct Bilirubin 0.10 AST 18 ALT 29 Alkaline Phosphatase 77 Total Protein 6.8 Albumin 3.2 Globulin 3.6 Urine Color Urine Clarity Urine pH Ur Specific [place] Urine Protein Urine Glucose (UA) Urine Ketones Urine Occult Blood Urine Nitrite Urine Bilirubin Urine Urobilinogen Ur Leukocyte Esterase Urine RBC Urine WBC Ur Squamous Epith Cells Urine Bacteria Urine Mucus Phenytoin 9.8 L 03/19/18 03/19/18 21:55 22:45 WBC RBC Hgb Hct MCV MCH MCHC RDW RDW Differential Plt Count MPV Immature Gran % (Auto) Neut % (Auto) Lymph % (Auto) [place] % (Auto) Eos % (Auto) Baso % (Auto) Absolute Neuts (auto) Absolute Lymphs (auto) Total Counted Sodium Potassium Chloride Carbon Dioxide Anion Gap BUN Creatinine Estim Creat Clear Calc Est GFR (MDRD) Af Amer Est GFR (MDRD) Non-Af BUN/Creatinine Ratio Glucose Lactic Acid 1.8 Calcium Total Bilirubin Direct Bilirubin AST ALT Alkaline Phosphatase Total Protein Albumin Globulin Urine Color Yellow Urine Clarity Clear Urine pH 6.5 Ur Specific [place] 1.010 Urine Protein Negative Urine Glucose (UA) Normal Urine Ketones Negative Urine Occult Blood Negative Urine Nitrite Negative Urine Bilirubin 3 H Urine Urobilinogen Normal Ur Leukocyte Esterase 100 H Urine RBC 0 SEEN Urine WBC 10-25 SEEN Ur Squamous Epith Cells 0 SEEN Urine Bacteria 3+ Urine Mucus 0 SEEN Phenytoin Assessment/Plan All Active Problems (Last Reviewed 02/07/18 @ 14:36 by Crystal Ibanez) UTI (urinary tract infection) (Acute) SIRS (systemic inflammatory response syndrome) (Acute) Viral illness (Acute) Cardiac enzymes elevated (Acute) History of right hip replacement (Acute) Broken ankle (Acute) S/P laparoscopic cholecystectomy (Acute) S/P appendectomy (Acute) Acidosis (Acute) Acute and chronic respiratory failure with hypoxia (Acute) Nicotine abuse (Acute) Acute respiratory failure with hypercapnia (Acute) Acute respiratory failure with hypoxia and hypercapnia (Acute) Acute exacerbation of chronic obstructive airways disease (Acute) Hypokalemia (Acute) Subtherapeutic serum dilantin level (Acute) Subtherapeutic phenobarb level (Acute) Fever (Acute) Fracture of left great toe (Resolved) Frequent falls (Resolved) The patient is a 67 y/o F w/ PMHx: Seizure disorder, Restless leg, CHUY noncompliant with CPAP, Chronic Hypoxic Respiratory Failure (2L NC q HS only), Tobacco use, Chronic COPD, Chronic pain syndrome, Hypertension, Anxiety and Depression/Insomnia who presents to the [facility] ED on 03/19/18 with history of progressively worsening nausea, emesis, suprapubic TTP, urinary frequency noted to be going nearly hourly in addition to dysuria x 24 hours prompting eventual presentation without fevers but noted chills. (1) Acute Urinary Tract Infection: Will admit to [facility] upon ED evaluation remarkable, pending UCx, continue IVFs w/ hold parameters on patient BP regimen, monitor I/Os, continue IV Rocephin w/ transition as able pending sensitivities and speciation. Bld Cx not obtained per ED. (2) Recent Indeterminate cardiac enzyme: Recent admission w/ terminate cardiac enzyme 0.2 range, echocardiogram with normal LV size, normal LV systolic function, EF 60%, no evidence for diastolic dysfunction, mild TV insufficiency, 03/07/18 cardiac stress testing with no myocardial perfusion changes consider diagnostic for associated stress-induced myocardial ischemia. (3) Chronic COPD w/ Chronic Hypoxic Respiratory Failure: Continue home O2 supplementation q HS, continue ATC duonebs, PRN albuterol, HOB, IS parameters. (4) Tobacco Abuse: Encouraged cessation, inpatient consultation per RT, NR declined. (5) Seizure disorder: Continue home regimen Dilantin and phenobarbital, Dilantin. (6) Chronic Pain Syndrome: Maintain on patient home methadone and gabapentin regimen regimen. (7) Anxiety and Depression: Maintain on home Wellbutrin, Remeron, Restoril regimen although as noted prior unclear why dual sedation PM regimen. (8) HTN: Maintain on home regimen of Norvasc, Lasix with hold parameters given presentation w/ initially hypotension. (9) Hyperlipidemia: Continue home statin regimen. (10) CHUY: Declines CPAP q HS. (11) RLS: Maintain on home requip regimen. (12) GERD: Continue home regimen Ranitidine. (13) DVT Prophylaxis: SCDs, lovenox. Code Visit Inpatient E&M: 92678 Init Hosp L3
[2018-03-20] VITALS (8 sets, daily range): BP systolic 93–133; BP diastolic 48–67; PULSE 71–97; RESP 16–20; TEMP 36.8–37.1; O2SAT 93–99; BMI 26.4; BMI 26.5
[2018-03-20] MEDS: 0.9% Normal Saline 1,000 ML 150 ML IV ×4 (01:26→23:16)
[2018-03-20] MEDS: Methadone 10 MG Tablet PO ×4 (01:26→22:22)
[2018-03-20] MEDS: Temazepam 15 MG Capsule 30 MG PO ×2 (01:26→21:01)
[2018-03-20] MEDS: Mirtazapine 15 MG Tablet PO ×2 (01:26→21:00)
[2018-03-20] MEDS: Morphine 2 MG/ML Syringe IV ×2 (01:35→09:24)
[2018-03-20 01:41] LABS: Magnesium 2.2 mg/dL (1.6-2.6)
[2018-03-20] MEDS: Phenytoin Na 100 MG Capsule PO ×4 (01:56→20:59)
[2018-03-20] MEDS: Tolterodine Tartrate 4 MG CAP.SA PO ×2 (01:57→20:59)
[2018-03-20] MEDS: Pramipexole Di-HCl 1 MG Tablet PO ×2 (01:57→21:00)
[2018-03-20] MEDS: Pravastatin 40 MG Tablet PO ×2 (01:58→21:00)
[2018-03-20] MEDS: Latanoprost 0.005% 1 Bottle 1 DRP EACH EYE ×2 (01:58→21:01)
[2018-03-20] MEDS: Phenobarbital 32.4 MG Tablet PO ×3 (06:02→21:00)
[2018-03-20 06:15] LABS: Absolute Neutrophil Count 4.5 X10^3/uL (2.0-7.7); Basophil# 0.04 X10^3/uL; Basophil% 0.6 % (0-1); Eosinophil# 0.39 X10^3/uL; Eosinophils% 5.7 % (0-5); Hematocrit 35.8 % (37-47); Hemoglobin 11.5 g/dl (12.0-15.0); Lymphocyte % 19.1 % (19-41); Mean Corp Hgb Conc 32.1 g/gl (32-36); Mean Corpuscular Volume 96.5 fL (81-99); Mean Platelet Vol. 9.8 fl (6.2-12.0); Monocyte# 0.53 X10^3/uL; Monocyte% 7.8 % (0-10); Neutrophil # 4.51 X10^3/uL (2.7-7.7); Neutrophil % 66.4 % (47-70); Platelet Count 201 K/mm3 (150-450); RBC Distribution Width CV 14.5 % (11.6-14.6); RBC Distribution Width SD 49.2 fl (35.1-43.9); Red Blood Count 3.71 M/mm3 (4.2-5.4); White Blood Count 6.8 K/mm3 (4.4-11.0)
[2018-03-20 06:22] LABS: POSITIVE COUNT NO; POSITIVE DIFFERENTIAL NO; POSITIVE MORPHOLOGY NO
[2018-03-20 06:39] LABS: Anion Gap 6 (5-15); BUN 16 mg/dL (7-18); BUN/Creat Ratio 35.2 RATIO (10-20); Calcium,Total 7.5 mg/dL (8.5-10.1); Chloride 112 mmol/L (98-107); Creatinine, Serum 0.46 mg/dL (0.55-1.02); EST Glomerular Filtration Rate 145 mL/min (>60); Est Glom Filt Rate - Afr Amer 176 mL/min (>60); Estimated Creatinine Clearance 48.45 ml/min; Glucose 117 mg/dL (74-106); Sodium Level 144 mmol/L (136-145)
[2018-03-20] MEDS: Ipratropium/Albuterol Sulfate 3 ML AMPUL.NEB INHALATION ×3 (07:05→18:46)
--- NOTE | 2018-03-20 09:14 | PCM.PN.HOSP ---
Patient Problems: Active and Suspected Problems (Last Reviewed 02/07/18 @ 14:36 by Crystal Ibanez) UTI (urinary tract infection) (Acute) Subjective: Still with pain to the lower abdomen, it is slightly better since admission Vitals/I&O's: Vital Signs Temp Pulse Resp BP Pulse Ox 98.3 F 72 20 H 105/48 L 94 03/20/18 06:04 03/20/18 07:11 03/20/18 07:11 03/20/18 06:04 03/20/18 07:11 Oxygen Flow Rate (L/min) 2 Oxygen Delivery Method Nasal Cannula Weight: 158 lb 8.198 oz Body Mass Index (BMI) 26.4 Intake and Output for Last 24 Hours 03/18/18 03/19/18 03/20/18 23:59 23:59 23:59 Intake Total 921 / 921 Output Total 550 / 550 Balance 371 / 371 General: Alert, Oriented x3, Cooperative, No apparent distress HEENT: Atraumatic, EOMI, Normocephalic Oral: Moist Mucosa Neck: Supple, No JVD Lungs: Clear to auscultation, Normal air movement, No rhonchi, No wheeze, No rales Cardiovascular: Regular rate, Regular Rhythm, Normal S1, Normal S2, No murmurs Abdomen: Soft, Non-Distended - to suprpubic region, No Hepato-splenomegaly, Tender Extremities: No edema, Capillary Refill Less than 3 Seconds Skin: No rashes, No breakdown Laboratory Results 03/19/18 20:25: Phenytoin 9.8 L 03/19/18 20:25: WBC 8.4, RBC 4.36, Hgb 13.8, Hct 41.6, MCV 95.4, MCH 31.7, MCHC 33.2, RDW 14.4, RDW Differential 48.2 H, Plt Count 262, MPV 9.9, Immature Gran % (Auto) 0.400, Neut % (Auto) 49.0, Lymph % (Auto) 33.3, [place] % (Auto) 10.9 H, Eos % (Auto) 5.6 H, Baso % (Auto) 0.8, Absolute Neuts (auto) 4.1, Absolute Lymphs (auto) 2.78, Total Counted Not Reportable 03/19/18 20:25: Sodium 141, Potassium 3.9, Chloride 103, Carbon Dioxide 29.0, Anion Gap 9, BUN 21 H, Creatinine 0.62, Estim Creat Clear Calc 56.27, Est GFR (MDRD) Af Amer 124, Est GFR (MDRD) Non-Af 102, BUN/Creatinine Ratio 34.1 H, Glucose 117 H, Calcium 9.0, Total Bilirubin 0.20, Direct Bilirubin 0.10, AST 18, ALT 29, Alkaline Phosphatase 77, Total Protein 6.8, Albumin 3.2, Globulin 3.6 03/19/18 20:25: Magnesium 2.2 03/19/18 21:55: Urine Color Yellow, Urine Clarity Clear, Urine pH 6.5, Ur Specific [place] 1.010, Urine Protein Negative, Urine Glucose (UA) Normal, Urine Ketones Negative, Urine Occult Blood Negative, Urine Nitrite Negative, Urine Bilirubin 3 H, Urine Urobilinogen Normal, Ur Leukocyte Esterase 100 H, Urine RBC 0 SEEN, Urine WBC 10-25 SEEN, Ur Squamous Epith Cells 0 SEEN, Urine Bacteria 3+, Urine Mucus 0 SEEN 03/19/18 22:45: Lactic Acid 1.8 03/20/18 05:28: WBC 6.8, RBC 3.71 L, Hgb 11.5 L, Hct 35.8 L, MCV 96.5, MCH 31.0, MCHC 32.1, RDW 14.5, RDW Differential 49.2 H, Plt Count 201, MPV 9.8, Immature Gran % (Auto) 0.400, Neut % (Auto) 66.4, Lymph % (Auto) 19.1, [place] % (Auto) 7.8, Eos % (Auto) 5.7 H, Baso % (Auto) 0.6, Absolute Neuts (auto) 4.5, Absolute Lymphs (auto) 1.30, Total Counted Not Reportable 03/20/18 05:28: Sodium 144, Potassium 4.0, Chloride 112 H, Carbon Dioxide 26.0, Anion Gap 6, BUN 16, Creatinine 0.46 L, Estim Creat Clear Calc 48.45, Est GFR (MDRD) Af Amer 176, Est GFR (MDRD) Non-Af 145, BUN/Creatinine Ratio 35.2 H, Glucose 117 H, Calcium 7.5 L Current Medications Al Hydroxide/Mg Hydroxide (Mylanta Ii) 30 ml PO Q6H PRN PRN PRN Reason: Gastric burning Albuterol Sulfate (Ventolin Aerosols) 2.5 mg INHALATION Q2H PRN PRN PRN Reason: dyspnea, wheezing Albuterol/Ipratropium (Duoneb) 3 ml INHALATION Q6HWA.RT [facility] Last Admin: 03/20/18 07:05 Dose: 3 ml Amlodipine Besylate (Norvasc) 2.5 mg PO DAILY [facility] Aspirin (Aspirin, Baby) 81 mg PO DAILY@0800 [facility] Bupropion HCl (Wellbutrin Sr (150mg Tablets)) 150 mg PO BID [facility] Calcium/Vitamin D (Os-[place] 500mg + D) 1 tablet PO DAILY [facility] Clotrimazole (Lotrimin) 1 applicatio TOPICAL BID PRN PRN; Protocol PRN Reason: redness Cyclobenzaprine HCl (Flexeril) 10 mg PO TID PRN PRN PRN Reason: MUSCLE SPASM Enoxaparin Sodium (Lovenox) 40 mg SC DAILY@1000 [facility] Ergocalciferol (Vitamin D) 50,000 unit PO MO [facility] Etodolac (Lodine) 400 mg PO BID [facility] Famotidine (Pepcid) 40 mg PO DAILY [facility] Furosemide (Lasix) 40 mg PO DAILY [facility] Gabapentin (Neurontin) 300 mg PO BID [facility] Sodium Chloride () 1,000 mls @ 150 mls/hr IV .[id number] [facility] Last Admin: 03/20/18 01:26 Dose: 150 mls/hr Sodium Chloride () 250 mls @ 15 mls/hr IV .[id number] PRN PRN Reason: SALINE FLUSH Ceftriaxone Sodium (Rocephin) 1 gm in 50 mls @ 100 mls/hr IV Q24 [facility] Latanoprost (Xalatan Opthalmic) 1 drop EACH EYE QHS [facility] Last Admin: 03/20/18 01:58 Dose: 1 drop Magnesium Hydroxide (Milk Of Magnesia) 30 ml PO DAILY PRN PRN PRN Reason: Constipation Methadone HCl () 10 mg PO TID [facility] Last Admin: 03/20/18 06:02 Dose: 10 mg Metoprolol Tartrate (Lopressor (Beta Maci)) 25 mg PO BID [facility] Mirtazapine (Remeron) 15 mg PO QHS [facility] Last Admin: 10/01/18 01:26 Dose: 15 mg Morphine Sulfate () 2 - 4 mg IV Q3H PRN PRN PRN Reason: moderately to severe pain Last Admin: 03/20/18 01:35 Dose: 2 mg Morphine Sulfate () 2 - 4 mg IV Q3H PRN PRN PRN Reason: moderately to severe pain Ondansetron HCl (Zofran) 4 mg IV Q8H PRN PRN PRN Reason: NAUSEA Oxycodone HCl (Oxyir) 10 mg PO Q4H PRN PRN PRN Reason: Moderate Pain (pain scale 4-5) Phenobarbital (Phenobarbital) 32.4 mg PO TID [facility] Last Admin: 03/20/18 06:02 Dose: 32.4 mg Phenytoin Sodium (Dilantin) 100 mg PO 4X/DAY [facility] Last Admin: 03/20/18 01:56 Dose: 100 mg Potassium Chloride (K-Dur) 20 meq PO DAILY [facility] Pramipexole Dihydrochloride (Mirapex) 1 mg PO QHS [facility] Last Admin: 03/20/18 01:57 Dose: 1 mg Pravastatin Sodium (Pravachol) 40 mg PO QHS [facility] Last Admin: 03/20/18 01:58 Dose: 40 mg Promethazine HCl (Phenergan) 12.5 mg IV Q6H PRN PRN PRN Reason: NAUSEA/VOMITING Sodium Chloride () 5 - 30 ml IV UD PRN PRN Reason: SALINE FLUSH Temazepam (Restoril) 30 mg PO QHS [facility] Last Admin: 03/20/18 01:26 Dose: 30 mg Tolterodine Tartrate (Detrol La) 4 mg PO QHS [facility] Last Admin: 03/20/18 01:57 Dose: 4 mg Medical Necessity - Tobacco Use Smoking Status: Current every day smoker Tobacco Use: Cigarettes Assessment/Plan All Active Problems (Last Reviewed 02/07/18 @ 14:36 by Crystal Ibanez) UTI (urinary tract infection) (Acute) SIRS (systemic inflammatory response syndrome) (Acute) Viral illness (Acute) Cardiac enzymes elevated (Acute) History of right hip replacement (Acute) Broken ankle (Acute) S/P laparoscopic cholecystectomy (Acute) S/P appendectomy (Acute) Acidosis (Acute) Acute and chronic respiratory failure with hypoxia (Acute) Nicotine abuse (Acute) Acute respiratory failure with hypercapnia (Acute) Acute respiratory failure with hypoxia and hypercapnia (Acute) Acute exacerbation of chronic obstructive airways disease (Acute) Hypokalemia (Acute) Subtherapeutic serum dilantin level (Acute) Subtherapeutic phenobarb level (Acute) Fever (Acute) Fracture of left great toe (Resolved) Frequent falls (Resolved) 1. Acute UTI/Chronic pain - Cx is pending - c/w rocephin until culture finalized - IVF@150 - Hold lasix in the setting of fluid resuscitation - Will continue patients home methadone regimen 2. HTN/HLD/CHUY - C/w home norvasc and statin - Hold lasix d/t IVF resuscitation - continues to decline CPAP 3. GERD - stable - c/w zantac 4. Seizure disorder - stable - c/w dilatin and phenobarb - Dilantin level is low, but she has been seizure free so no adjustments 5. Chronic COPD from tobacco abuse - C./w home inhalers and nocturnal O2 - Declined smoking cessation 6. Anxiety/Depression - stable - c/w home medication regimen 7. RLS - stable - c/w requip DVT Prophylaxis: SCDs, lovenox. Diet: Cardiac Code Visit Inpatient E&M: 78334 Subs Hosp L2
[2018-03-20] MEDS: Ceftriaxone 1 GM/50 ML BAG IV (09:24)
--- NOTE | 2018-03-20 09:26 | PN_ITS ---
Patient Problems: Active and Suspected Problems (Last Reviewed 02/07/18 @ 14:36 by Crystal Ibanez) UTI (urinary tract infection) (Acute) Subjective: Still with pain to the lower abdomen, it is slightly better since admission Vitals/I&O's: Vital Signs Temp Pulse Resp BP Pulse Ox 98.3 F 72 20 H 105/48 L 94 03/20/18 06:04 03/20/18 07:11 03/20/18 07:11 03/20/18 06:04 03/20/18 07:11 Oxygen Flow Rate (L/min) 2 Oxygen Delivery Method Nasal Cannula Weight: 158 lb 8.198 oz Body Mass Index (BMI) 26.4 Intake and Output for Last 24 Hours 03/18/18 03/19/18 03/20/18 23:59 23:59 23:59 Intake Total 921 / 921 Output Total 550 / 550 Balance 371 / 371 General: Alert, Oriented x3, Cooperative, No apparent distress HEENT: Atraumatic, EOMI, Normocephalic Oral: Moist Mucosa Neck: Supple, No JVD Lungs: Clear to auscultation, Normal air movement, No rhonchi, No wheeze, No rales Cardiovascular: Regular rate, Regular Rhythm, Normal S1, Normal S2, No murmurs Abdomen: Soft, Non-Distended - to suprpubic region, No Hepato-splenomegaly, Tender Extremities: No edema, Capillary Refill Less than 3 Seconds Skin: No rashes, No breakdown Laboratory Results 03/19/18 20:25: Phenytoin 9.8 L 03/19/18 20:25: WBC 8.4, RBC 4.36, Hgb 13.8, Hct 41.6, MCV 95.4, MCH 31.7, MCHC 33.2, RDW 14.4, RDW Differential 48.2 H, Plt Count 262, MPV 9.9, Immature Gran % (Auto) 0.400, Neut % (Auto) 49.0, Lymph % (Auto) 33.3, [place] % (Auto) 10.9 H, Eos % (Auto) 5.6 H, Baso % (Auto) 0.8, Absolute Neuts (auto) 4.1, Absolute Lymphs (auto) 2.78, Total Counted Not Reportable 03/19/18 20:25: Sodium 141, Potassium 3.9, Chloride 103, Carbon Dioxide 29.0, Anion Gap 9, BUN 21 H, Creatinine 0.62, Estim Creat Clear Calc 56.27, Est GFR (MDRD) Af Amer 124, Est GFR (MDRD) Non-Af 102, BUN/Creatinine Ratio 34.1 H, Glucose 117 H, Calcium 9.0, Total Bilirubin 0.20, Direct Bilirubin 0.10, AST 18, ALT 29, Alkaline Phosphatase 77, Total Protein 6.8, Albumin 3.2, Globulin 3.6 03/19/18 20:25: Magnesium 2.2 03/19/18 21:55: Urine Color Yellow, Urine Clarity Clear, Urine pH 6.5, Ur Specific [place] 1.010, Urine Protein Negative, Urine Glucose (UA) Normal, Urine Ketones Negative, Urine Occult Blood Negative, Urine Nitrite Negative, Urine Bilirubin 3 H, Urine Urobilinogen Normal, Ur Leukocyte Esterase 100 H, Urine RBC 0 SEEN, Urine WBC 10-25 SEEN, Ur Squamous Epith Cells 0 SEEN, Urine Bacteria 3+, Urine Mucus 0 SEEN 03/19/18 22:45: Lactic Acid 1.8 03/20/18 05:28: WBC 6.8, RBC 3.71 L, Hgb 11.5 L, Hct 35.8 L, MCV 96.5, MCH 31.0, MCHC 32.1, RDW 14.5, RDW Differential 49.2 H, Plt Count 201, MPV 9.8, Immature Gran % (Auto) 0.400, Neut % (Auto) 66.4, Lymph % (Auto) 19.1, [place] % (Auto) 7.8, Eos % (Auto) 5.7 H, Baso % (Auto) 0.6, Absolute Neuts (auto) 4.5, Absolute Lymphs (auto) 1.30, Total Counted Not Reportable 03/20/18 05:28: Sodium 144, Potassium 4.0, Chloride 112 H, Carbon Dioxide 26.0, Anion Gap 6, BUN 16, Creatinine 0.46 L, Estim Creat Clear Calc 48.45, Est GFR (MDRD) Af Amer 176, Est GFR (MDRD) Non-Af 145, BUN/Creatinine Ratio 35.2 H, Glucose 117 H, Calcium 7.5 L Current Medications Al Hydroxide/Mg Hydroxide (Mylanta Ii) 30 ml PO Q6H PRN PRN PRN Reason: Gastric burning Albuterol Sulfate (Ventolin Aerosols) 2.5 mg INHALATION Q2H PRN PRN PRN Reason: dyspnea, wheezing Albuterol/Ipratropium (Duoneb) 3 ml INHALATION Q6HWA.RT [facility] Last Admin: 03/20/18 07:05 Dose: 3 ml Amlodipine Besylate (Norvasc) 2.5 mg PO DAILY [facility] Aspirin (Aspirin, Baby) 81 mg PO DAILY@0800 [facility] Bupropion HCl (Wellbutrin Sr (150mg Tablets)) 150 mg PO BID [facility] Calcium/Vitamin D (Os-Nolan 500mg + D) 1 tablet PO DAILY [facility] Clotrimazole (Lotrimin) 1 applicatio TOPICAL BID PRN PRN; Protocol PRN Reason: redness Cyclobenzaprine HCl (Flexeril) 10 mg PO TID PRN PRN PRN Reason: MUSCLE SPASM Enoxaparin Sodium (Lovenox) 40 mg SC DAILY@1000 [facility] Ergocalciferol (Vitamin D) 50,000 unit PO MO [facility] Etodolac (Lodine) 400 mg PO BID [facility] Famotidine (Pepcid) 40 mg PO DAILY [facility] Furosemide (Lasix) 40 mg PO DAILY [facility] Gabapentin (Neurontin) 300 mg PO BID [facility] Sodium Chloride () 1,000 mls @ 150 mls/hr IV .Q6H40M [facility] Last Admin: 03/20/18 01:26 Dose: 150 mls/hr Sodium Chloride () 250 mls @ 15 mls/hr IV .[id number] PRN PRN Reason: SALINE FLUSH Ceftriaxone Sodium (Rocephin) 1 gm in 50 mls @ 100 mls/hr IV Q24 [facility] Latanoprost (Xalatan Opthalmic) 1 drop EACH EYE QHS [facility] Last Admin: 03/20/18 01:58 Dose: 1 drop Magnesium Hydroxide (Milk Of Magnesia) 30 ml PO DAILY PRN PRN PRN Reason: Constipation Methadone HCl () 10 mg PO TID [facility] Last Admin: 03/20/18 06:02 Dose: 10 mg Metoprolol Tartrate (Lopressor (Beta Maci)) 25 mg PO BID [facility] Mirtazapine (Remeron) 15 mg PO QHS [facility] Last Admin: 10/01/18 01:26 Dose: 15 mg Morphine Sulfate () 2 - 4 mg IV Q3H PRN PRN PRN Reason: moderately to severe pain Last Admin: 03/20/18 01:35 Dose: 2 mg Morphine Sulfate () 2 - 4 mg IV Q3H PRN PRN PRN Reason: moderately to severe pain Ondansetron HCl (Zofran) 4 mg IV Q8H PRN PRN PRN Reason: NAUSEA Oxycodone HCl (Oxyir) 10 mg PO Q4H PRN PRN PRN Reason: Moderate Pain (pain scale 4-5) Phenobarbital (Phenobarbital) 32.4 mg PO TID [facility] Last Admin: 03/20/18 06:02 Dose: 32.4 mg Phenytoin Sodium (Dilantin) 100 mg PO 4X/DAY [facility] Last Admin: 03/20/18 01:56 Dose: 100 mg Potassium Chloride (K-Dur) 20 meq PO DAILY [facility] Pramipexole Dihydrochloride (Mirapex) 1 mg PO QHS [facility] Last Admin: 03/20/18 01:57 Dose: 1 mg Pravastatin Sodium (Pravachol) 40 mg PO QHS [facility] Last Admin: 03/20/18 01:58 Dose: 40 mg Promethazine HCl (Phenergan) 12.5 mg IV Q6H PRN PRN PRN Reason: NAUSEA/VOMITING Sodium Chloride () 5 - 30 ml IV UD PRN PRN Reason: SALINE FLUSH Temazepam (Restoril) 30 mg PO QHS [facility] Last Admin: 03/20/18 01:26 Dose: 30 mg Tolterodine Tartrate (Detrol La) 4 mg PO QHS [facility] Last Admin: 03/20/18 01:57 Dose: 4 mg Medical Necessity - Tobacco Use Smoking Status: Current every day smoker Tobacco Use: Cigarettes Assessment/Plan All Active Problems (Last Reviewed 02/07/18 @ 14:36 by Crystal Ibanez) UTI (urinary tract infection) (Acute) SIRS (systemic inflammatory response syndrome) (Acute) Viral illness (Acute) Cardiac enzymes elevated (Acute) History of right hip replacement (Acute) Broken ankle (Acute) S/P laparoscopic cholecystectomy (Acute) S/P appendectomy (Acute) Acidosis (Acute) Acute and chronic respiratory failure with hypoxia (Acute) Nicotine abuse (Acute) Acute respiratory failure with hypercapnia (Acute) Acute respiratory failure with hypoxia and hypercapnia (Acute) Acute exacerbation of chronic obstructive airways disease (Acute) Hypokalemia (Acute) Subtherapeutic serum dilantin level (Acute) Subtherapeutic phenobarb level (Acute) Fever (Acute) Fracture of left great toe (Resolved) Frequent falls (Resolved) 1. Acute UTI/Chronic pain - Cx is pending - c/w rocephin until culture finalized - IVF@150 - Hold lasix in the setting of fluid resuscitation - Will continue patients home methadone regimen 2. HTN/HLD/CHUY - C/w home norvasc and statin - Hold lasix d/t IVF resuscitation - continues to decline CPAP 3. GERD - stable - c/w zantac 4. Seizure disorder - stable - c/w dilatin and phenobarb - Dilantin level is low, but she has been seizure free so no adjustments 5. Chronic COPD from tobacco abuse - C./w home inhalers and nocturnal O2 - Declined smoking cessation 6. Anxiety/Depression - stable - c/w home medication regimen 7. RLS - stable - c/w requip DVT Prophylaxis: SCDs, lovenox. Diet: Cardiac Code Visit Inpatient E&M: 54920 Subs Hosp L2
[2018-03-20] MEDS: Famotidine 20 MG Tablet 40 MG PO (09:29)
[2018-03-20] MEDS: buPROPion (SR) 150 MG Tablet.SA PO ×2 (09:29→21:01)
[2018-03-20] MEDS: Calcium Carb/Vitamin D 1 TABLET Tablet PO (09:29)
[2018-03-20] MEDS: Aspirin 81 MG TAB.CHEW PO (09:30)
[2018-03-20] MEDS: Gabapentin 300 MG Capsule PO ×2 (09:30→21:00)
[2018-03-20] MEDS: Enoxaparin 40 MG/0.4 ML Syringe SC (09:30)
[2018-03-20] MEDS: amLODIPine 2.5 MG Tablet PO (09:30)
[2018-03-20] MEDS: Furosemide 40 MG Tablet PO (09:30)
--- NOTE | 2018-03-20 10:57 | CASEMGMT ---
Addendum entered by Dima Novak 03/20/18 12:51: Pt active with [facility]. Has [employer] 3 hours/day, M-F. [employer] providing hot meals 5x week and [employer] providing meals 5xweek. 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 [phone]. (would like DC instructions/summary and call on dc to notify) Original Note: RN CM Readmission Note. Last Admission: 03/05/18-03/07/18. DX: SIRS, Viral illness DC Disposition: Home Admission: 03/19/18 Intro role of CM to patient in room. she states she was doing well @ home until saleem prior to admission. Pt states she is independent, uses [employer] for transportation. Has oxygen @ night and nebulizer through [employer], and rollator she uses around home. No needs identified @ this time. DC PLAN: home
[2018-03-20] MEDS: Etodolac 200 MG Capsule 400 MG PO ×2 (12:45→20:59)
[2018-03-20] MEDS: oxyCODONE 5 MG Tablet 10 MG PO (16:27)
[2018-03-20] MEDS: Metoprolol Tartrate 25 MG Tablet PO (20:59)
[2018-03-21] VITALS (9 sets, daily range): BP systolic 98–110; BP diastolic 51–66; PULSE 66–97; RESP 16–20; TEMP 36.7–37.2; O2SAT 94–99
[2018-03-21] MEDS: oxyCODONE 5 MG Tablet 10 MG PO ×2 (03:16→16:38)
[2018-03-21] MEDS: Phenobarbital 32.4 MG Tablet PO ×3 (05:52→21:48)
[2018-03-21] MEDS: 0.9% Normal Saline 1,000 ML 150 ML IV (05:52)
[2018-03-21] MEDS: Methadone 10 MG Tablet PO ×3 (05:53→21:48)
--- NOTE | 2018-03-21 05:55 | NURSING ---
Pt states believes her last seizure was about 1 week ago. Pt is refusing seizure pads on her bed.
[2018-03-21] MEDS: Ipratropium/Albuterol Sulfate 3 ML AMPUL.NEB INHALATION ×3 (07:03→19:15)
--- NOTE | 2018-03-21 08:42 | PN_ITS ---
Patient Problems: Active and Suspected Problems (Last Reviewed 02/07/18 @ 14:36 by Crystal Ibanez) UTI (urinary tract infection) (Acute) Subjective: Pain is much better controlled today, tolerating PO intake Objective: General: Alert, Oriented x3, Cooperative, No apparent distress HEENT: Atraumatic, EOMI, Normocephalic Oral: Moist Mucosa Neck: Supple, No JVD Lungs: Clear to auscultation, Normal air movement, No rhonchi, No wheeze, No rales Cardiovascular: Regular rate, Regular Rhythm, Normal S1, Normal S2, No murmurs Abdomen: Soft, Non-Distended, No Hepato-splenomegaly, Tender- to suprpubic region Extremities: No edema, Capillary Refill Less than 3 Seconds Skin: No rashes, No breakdown Vitals/I&O's: Vital Signs Temp Pulse Resp BP Pulse Ox 98.9 F 68 16 98/56 L 97 03/21/18 03:09 03/21/18 07:03 03/21/18 07:03 03/21/18 03:09 03/21/18 07:03 Oxygen Flow Rate (L/min) 2 Oxygen Delivery Method Nasal Cannula Weight: 158 lb 8.198 oz Body Mass Index (BMI) 26.4 Intake and Output for Last 24 Hours 03/19/18 03/20/18 03/21/18 23:59 23:59 23:59 Intake Total 2521 / 2521 2402 / 2402 Output Total 2350 / 2350 750 / 750 Balance 171 / 171 1652 / 1652 Current Medications Al Hydroxide/Mg Hydroxide (Mylanta Ii) 30 ml PO Q6H PRN PRN PRN Reason: Gastric burning Albuterol Sulfate (Ventolin Aerosols) 2.5 mg INHALATION Q2H PRN PRN PRN Reason: dyspnea, wheezing Albuterol/Ipratropium (Duoneb) 3 ml INHALATION Q6HWA.RT [facility] Last Admin: 03/21/18 07:03 Dose: 3 ml Amlodipine Besylate (Norvasc) 2.5 mg PO DAILY [facility] Last Admin: 03/20/18 09:30 Dose: 2.5 mg Aspirin (Aspirin, Baby) 81 mg PO DAILY@0800 [facility] Last Admin: 03/20/18 09:30 Dose: 81 mg Bupropion HCl (Wellbutrin Sr (150mg Tablets)) 150 mg PO BID [facility] Last Admin: 03/20/18 21:01 Dose: 150 mg Calcium/Vitamin D (Os-Nolan 500mg + D) 1 tablet PO DAILY [facility] Last Admin: 03/20/18 09:29 Dose: 1 tablet Clotrimazole (Lotrimin) 1 applicatio TOPICAL BID PRN PRN; Protocol PRN Reason: redness Cyclobenzaprine HCl (Flexeril) 10 mg PO TID PRN PRN PRN Reason: MUSCLE SPASM Enoxaparin Sodium (Lovenox) 40 mg SC DAILY@1000 [facility] Last Admin: 03/20/18 09:30 Dose: 40 mg Ergocalciferol (Vitamin D) 50,000 unit PO MO [facility] Last Admin: 03/20/18 09:29 Dose: 50,000 unit Etodolac (Lodine) 400 mg PO BID [facility] Last Admin: 03/20/18 20:59 Dose: 400 mg Famotidine (Pepcid) 40 mg PO DAILY [facility] Last Admin: 03/20/18 09:29 Dose: 40 mg Gabapentin (Neurontin) 300 mg PO BID [facility] Last Admin: 03/20/18 21:00 Dose: 300 mg Sodium Chloride () 1,000 mls @ 150 mls/hr IV .Q6H40M [facility] Last Admin: 03/21/18 05:52 Dose: 150 mls/hr Sodium Chloride () 250 mls @ 15 mls/hr IV .[id number] PRN PRN Reason: SALINE FLUSH Ceftriaxone Sodium (Rocephin) 1 gm in 50 mls @ 100 mls/hr IV Q24 [facility] Last Admin: 03/20/18 09:24 Dose: 100 mls/hr Latanoprost (Xalatan Opthalmic) 1 drop EACH EYE QHS [facility] Last Admin: 03/20/18 21:01 Dose: 1 drop Magnesium Hydroxide (Milk Of Magnesia) 30 ml PO DAILY PRN PRN PRN Reason: Constipation Methadone HCl () 10 mg PO TID [facility] Last Admin: 03/21/18 05:53 Dose: 10 mg Metoprolol Tartrate (Lopressor (Beta Maci)) 25 mg PO BID [facility] Last Admin: 03/20/18 20:59 Dose: 25 mg Mirtazapine (Remeron) 15 mg PO QHS [facility] Last Admin: 03/20/18 21:00 Dose: 15 mg Morphine Sulfate () 2 - 4 mg IV Q3H PRN PRN PRN Reason: moderately to severe pain Last Admin: 03/20/18 09:24 Dose: 2 mg Morphine Sulfate () 2 - 4 mg IV Q3H PRN PRN PRN Reason: moderately to severe pain Ondansetron HCl (Zofran) 4 mg IV Q8H PRN PRN PRN Reason: NAUSEA Oxycodone HCl (Oxyir) 10 mg PO Q4H PRN PRN PRN Reason: Moderate Pain (pain scale 4-5) Last Admin: 03/21/18 03:16 Dose: 10 mg Phenobarbital (Phenobarbital) 32.4 mg PO TID [facility] Last Admin: 03/21/18 05:52 Dose: 32.4 mg Phenytoin Sodium (Dilantin) 100 mg PO 4X/DAY [facility] Last Admin: 03/20/18 20:59 Dose: 100 mg Potassium Chloride (K-Dur) 20 meq PO DAILY [facility] Last Admin: 03/20/18 09:30 Dose: 20 meq Pramipexole Dihydrochloride (Mirapex) 1 mg PO QHS [facility] Last Admin: 03/20/18 21:00 Dose: 1 mg Pravastatin Sodium (Pravachol) 40 mg PO QHS [facility] Last Admin: 03/20/18 21:00 Dose: 40 mg Promethazine HCl (Phenergan) 12.5 mg IV Q6H PRN PRN PRN Reason: NAUSEA/VOMITING Sodium Chloride () 5 - 30 ml IV UD PRN PRN Reason: SALINE FLUSH Temazepam (Restoril) 30 mg PO QHS [facility] Last Admin: 03/20/18 21:01 Dose: 30 mg Tolterodine Tartrate (Detrol La) 4 mg PO QHS [facility] Last Admin: 03/20/18 20:59 Dose: 4 mg Medical Necessity - Tobacco Use Smoking Status: Current every day smoker Tobacco Use: Cigarettes Assessment/Plan All Active Problems (Last Reviewed 02/07/18 @ 14:36 by Crystal Ibanez) UTI (urinary tract infection) (Acute) SIRS (systemic inflammatory response syndrome) (Acute) Viral illness (Acute) Cardiac enzymes elevated (Acute) History of right hip replacement (Acute) Broken ankle (Acute) S/P laparoscopic cholecystectomy (Acute) S/P appendectomy (Acute) Acidosis (Acute) Acute and chronic respiratory failure with hypoxia (Acute) Nicotine abuse (Acute) Acute respiratory failure with hypercapnia (Acute) Acute respiratory failure with hypoxia and hypercapnia (Acute) Acute exacerbation of chronic obstructive airways disease (Acute) Hypokalemia (Acute) Subtherapeutic serum dilantin level (Acute) Subtherapeutic phenobarb level (Acute) Fever (Acute) Fracture of left great toe (Resolved) Frequent falls (Resolved) 1. Acute UTI/Chronic pain - Cx is pending - c/w rocephin until culture finalized - IVF@150, will decrease to 100 - Hold lasix in the setting of fluid resuscitation - Will continue patients home methadone regimen - Remove dupree and attempt voiding trial - PT/OT to eval 2. HTN/HLD/CHUY - C/w home norvasc and statin - Hold lasix d/t IVF resuscitation - continues to decline CPAP 3. GERD - stable - c/w zantac 4. Seizure disorder - stable - c/w dilatin and phenobarb - Dilantin level is low, but she has been seizure free so no adjustments 5. Chronic COPD from tobacco abuse - C./w home inhalers and nocturnal O2 - Declined smoking cessation 6. Anxiety/Depression - stable - c/w home medication regimen 7. RLS - stable - c/w requip DVT Prophylaxis: SCDs, lovenox. Diet: Cardiac Code Visit Inpatient E&M: 05048 Subs Hosp L2
[2018-03-21] MEDS: Phenytoin Na 100 MG Capsule PO ×4 (10:23→21:36)
[2018-03-21] MEDS: Aspirin 81 MG TAB.CHEW PO (10:23)
[2018-03-21] MEDS: Etodolac 200 MG Capsule 400 MG PO ×2 (10:24→21:36)
[2018-03-21] MEDS: Enoxaparin 40 MG/0.4 ML Syringe SC (10:25)
[2018-03-21] MEDS: Gabapentin 300 MG Capsule PO ×2 (10:25→21:36)
[2018-03-21] MEDS: Famotidine 20 MG Tablet 40 MG PO (10:26)
[2018-03-21] MEDS: amLODIPine 2.5 MG Tablet PO (10:26)
[2018-03-21] MEDS: Calcium Carb/Vitamin D 1 TABLET Tablet PO (10:26)
[2018-03-21] MEDS: buPROPion (SR) 150 MG Tablet.SA PO ×2 (10:27→21:36)
[2018-03-21] MEDS: Ceftriaxone 1 GM/50 ML BAG IV (10:51)
[2018-03-21] MEDS: 0.9% Normal Saline 1,000 ML 100 ML IV (17:08)
[2018-03-21] MEDS: Latanoprost 0.005% 1 Bottle 1 DRP EACH EYE (21:32)
[2018-03-21] MEDS: Pravastatin 40 MG Tablet PO (21:36)
[2018-03-21] MEDS: Mirtazapine 15 MG Tablet PO (21:36)
[2018-03-21] MEDS: Pramipexole Di-HCl 1 MG Tablet PO (21:36)
[2018-03-21] MEDS: Tolterodine Tartrate 4 MG CAP.SA PO (21:37)
[2018-03-21] MEDS: Temazepam 15 MG Capsule 30 MG PO (21:48)
[2018-03-21] MEDS: 0.9% NaCl Peripheral Flush Adult/Peds IV (21:49)
[2018-03-22 02:45] VITALS: BP 129/66; PULSE 70; RESP 18; TEMP 36.8; O2SAT 99
[2018-03-22] MEDS: 0.9% Normal Saline 1,000 ML 100 ML IV (04:30)
[2018-03-22] MEDS: Methadone 10 MG Tablet PO ×2 (05:51→13:49)
[2018-03-22] MEDS: Phenobarbital 32.4 MG Tablet PO ×2 (05:52→13:49)
--- NOTE | 2018-03-22 08:26 | DCINST_ITS ---
- Discharge Diagnoses Current Active Problems: Current Active and Chronic Problems (Last Reviewed 02/07/18 @ 14:36 by Crystal Ibanez) UTI (urinary tract infection) (Acute) You will use the following diet at home:: No restrictions, Regular Your food should be the consistency of: Regular Your liquids should be the consistency of: Regular/Thin Discharge Activity: No Restrictions, May not drive while taking narcotic pain medications. Call your doctor if you observe: Fever of 101 or Higher, Inability to urinate, Shortness of breath Allergies/Adverse Reactions: Allergies Penicillins Allergy (Verified 03/19/18 20:21) Anaphylaxis codeine Adverse Reaction (Verified 03/19/18 20:21) Nausea Medications to take at Discharge Albuterol Aerosols [Ventolin Aerosols] 2.5 mg INHALATION Q4H PRN 05/12/16 Alendronate Sodium [Fosamax] 70 mg PO FR 05/12/16 Calcium Carbonate/Vitamin D3 [Oyster Shell 500-Vit D3 200 Tb] 1 ea PO DAILY 05/12/16 Etodolac 400 mg PO BID 05/12/16 Fluticasone/Salmeterol [Advair 250/50 Mcg Diskus] 2 puff INHALATION BID 05/12/16 Gabapentin [Neurontin] 300 mg PO BID 05/12/16 Phenytoin Na [Dilantin] 100 mg PO 4X/DAY 05/12/16 Ropinirole HCl [Requip] 2 mg PO QHS 05/12/16 Tolterodine Tartrate [Detrol LA] 4 mg PO QHS 05/12/16 Temazepam [Restoril] 30 mg PO QHS 06/24/17 Mirtazapine [Remeron] 15 mg PO QHS 07/03/17 Latanoprost 0.005% [Xalatan Opthalmic] 1 drp EACH EYE QHS 07/04/17 Furosemide [Lasix] 40 mg PO DAILY 09/04/17 Methadone HCl 10 mg PO TID 09/04/17 Amlodipine [Norvasc] 2.5 mg PO DAILY 11/07/17 Clotrimazole [Lotrimin] 1 applicatio TOPICAL BID PRN PRN 11/07/17 Ergocalciferol [Vitamin D] 50,000 units PO MO 11/07/17 Phenobarbital 32.4 mg PO TID 11/07/17 Potassium Chloride [K-Dur] 20 meq PO DAILY 11/07/17 Pravastatin [Pravachol] 40 mg PO QHS 11/07/17 Ranitidine [Zantac] 300 mg PO DAILY 11/07/17 buPROPion SR [Wellbutrin SR (150mg tablets)] 150 mg PO BID 11/07/17 Cyclobenzaprine [Flexeril] 10 mg PO TID PRN #20 tab 12/20/17 Acetaminophen [Tylenol Tablet] 650 mg PO Q6H PRN PRN tablet 03/07/18 Aspirin [Aspirin, Baby] 81 mg PO DAILY@0800 tab.chew 03/07/18 Metoprolol Tartrate 25 mg PO BID #60 tab 03/07/18 Cephalexin [Keflex] 500 mg PO Q8 #9 capsule 03/22/18 Enoxaparin [Lovenox] 40 mg SC DAILY@1000 syringe 03/22/18 The following prescriptions were given: Cephalexin [Keflex] 500 mg PO Q8 #9 capsule Primary Care Physician: Patel Veliz Chi, MD [Primary Care Provider] - Please follow up with your Primary Care Physician in: in 3-5 days Test Results: Test results from this visit will be discussed in further detail at your follow- up appointment, if applicable.
--- NOTE | 2018-03-22 08:26 | PCM.DC.SUM ---
Discharge Date and Diagnosis - Problem List Patient Problems: Active and Suspected Problems (Last Reviewed 02/07/18 @ 14:36 by Crystal Ibanez) UTI (urinary tract infection) (Acute) Date of Admission: 03/19/18 Date of Discharge: 03/22/18 - Primary Discharge Diagnosis Active and Suspected Problems (Last Reviewed 02/07/18 @ 14:36 by Crystal Ibanez) UTI (urinary tract infection) (Acute) - Secondary Discharge Diagnosis Chronic Problems (Last Reviewed 02/07/18 @ 14:36 by Crystal Ibanez) Tobacco use (Chronic) Generalized weakness (Chronic) Debility (Chronic) Depression (Chronic) Insomnia (Chronic) She takes Temazepam every night for sleep, prescribed by Dr. Veliz Hypertension (Chronic) Physical debility (Chronic) Degenerative disc disease, lumbar (Chronic) Pain, chronic (Chronic) Seizure disorder (Chronic) Restless leg syndrome (Chronic) COPD (chronic obstructive pulmonary disease) (Chronic) 1 ppd now smoker 4 ppd Obstructive sleep apnea (Chronic) non-compliant with CPAP but has oxygen to wear at night Smokes with greater than 40 pack year history (Chronic) Hospital Course and Treatment Imaging Results: CT Abd/pelvis: IMPRESSION: No suspicious solid organ abnormality, changes consistent with previous cholecystectomy Retained stool noted throughout the colon. Scattered colonic diverticulosis Uterus is still present, the endometrium cannot be accurately evaluated with CT. Degenerative bony changes Consults: None Operations: None Procedures: None Summary of Care Provided: HPI: The patient is a 67 y/o F w/ PMHx: Seizure disorder, Restless leg, CHUY noncompliant with CPAP, Chronic Hypoxic Respiratory Failure (2L NC q HS only), Tobacco use, Chronic COPD, Chronic pain syndrome, Hypertension, Anxiety and Depression/Insomnia who presents to the [facility] ED on 03/19/18 with history of progressively worsening nausea, emesis, suprapubic TTP, urinary frequency noted to be going nearly hourly in addition to dysuria x 24 hours prompting eventual presentation without fevers but noted chills. In the ED work-up included T 98.7, heart rate 83, BP 97/63, respiratory rate 20, 96% on room air, BC with WBC 8.4, hgb 13.8, platelet 262 without market left shift, CMP with BUN/creatinine 21/0.62, glucose 117, lactic acid 1.8, urinalysis concerning for urinary tract infection with pending urine culture per ED, chest x-ray with chronic changes, CT abdomen and pelvis with no acute findings, retained stool throughout the colon, scattered colonic diverticulosis. In the ED patient administered normal saline, Zofran, fentanyl, IV Rocephin. Following IV fluids in the ED patient blood pressure did improve. Vital Signs - 24 hr Temp Pulse Resp BP Pulse Ox 03/22/18 02:45 98.3 F 70 18 129/66 H 99 03/21/18 21:51 68 103/51 L 03/21/18 21:45 98.0 F 68 20 H 103/51 L 94 03/21/18 19:15 70 18 03/21/18 16:39 98.3 F 73 18 107/52 L 99 03/21/18 16:22 97 18 03/21/18 10:24 66 110/66 03/21/18 10:16 98.4 F 66 16 110/64 98 General: Alert, Oriented x3, Cooperative, No apparent distress HEENT: Atraumatic, EOMI, Normocephalic Oral: Moist Mucosa Neck: Supple, No JVD Lungs: Clear to auscultation, Normal air movement, No rhonchi, No wheeze, No rales Cardiovascular: Regular rate, Regular Rhythm, Normal S1, Normal S2, No murmurs Abdomen: Soft, Non-Distended, No Hepato-splenomegaly, Non-tender Extremities: No edema, Capillary Refill Less than 3 Seconds Skin: No rashes, No breakdown Hospital Course: 1. UTI with associated hypotension - Her hypotension resolved in the ER with IVF. Her dupree was removed prior to DC and she was able to urinate. She was maintained on IV rocephin until cultures finalized which grew Aerococcus urinae, so she was discharged with 3 days of PO keflex TID with outpatient follow-up with her PCP. D/t her hypotension and the need for IVF, her lasix were held on admission, which she can restart on discharge. 2. Seizure - She did have her dilantin level checked which was under 10, however she states she has been seizure free so no adjustments were made to her regimen. 3. She was continued on her home medications where appropriate. Discharge Activity: No Restrictions, May not drive while taking narcotic pain medications. Call your doctor if you observe: Fever of 101 or Higher, Inability to urinate, Shortness of breath Home Medications: Medications to take at Discharge Albuterol Aerosols [Ventolin Aerosols] 2.5 mg INHALATION Q4H PRN 05/12/16 Alendronate Sodium [Fosamax] 70 mg PO FR 05/12/16 Calcium Carbonate/Vitamin D3 [Oyster Shell 500-Vit D3 200 Tb] 1 ea PO DAILY 05/12/16 Etodolac 400 mg PO BID 05/12/16 Fluticasone/Salmeterol [Advair 250/50 Mcg Diskus] 2 puff INHALATION BID 05/12/16 Gabapentin [Neurontin] 300 mg PO BID 05/12/16 Phenytoin Na [Dilantin] 100 mg PO 4X/DAY 05/12/16 Ropinirole HCl [Requip] 2 mg PO QHS 05/12/16 Tolterodine Tartrate [Detrol LA] 4 mg PO QHS 05/12/16 Temazepam [Restoril] 30 mg PO QHS 06/24/17 Mirtazapine [Remeron] 15 mg PO QHS 07/03/17 Latanoprost 0.005% [Xalatan Opthalmic] 1 drp EACH EYE QHS 07/04/17 Furosemide [Lasix] 40 mg PO DAILY 09/04/17 Methadone HCl 10 mg PO TID 09/04/17 Amlodipine [Norvasc] 2.5 mg PO DAILY 11/07/17 Clotrimazole [Lotrimin] 1 applicatio TOPICAL BID PRN PRN 11/07/17 Ergocalciferol [Vitamin D] 50,000 units PO MO 11/07/17 Phenobarbital 32.4 mg PO TID 11/07/17 Potassium Chloride [K-Dur] 20 meq PO DAILY 11/07/17 Pravastatin [Pravachol] 40 mg PO QHS 11/07/17 Ranitidine [Zantac] 300 mg PO DAILY 11/07/17 buPROPion SR [Wellbutrin SR (150mg tablets)] 150 mg PO BID 11/07/17 Cyclobenzaprine [Flexeril] 10 mg PO TID PRN #20 tab 12/20/17 Acetaminophen [Tylenol Tablet] 650 mg PO Q6H PRN PRN tablet 03/07/18 Aspirin [Aspirin, Baby] 81 mg PO DAILY@0800 tab.chew 03/07/18 Metoprolol Tartrate 25 mg PO BID #60 tab 03/07/18 Cephalexin [Keflex] 500 mg PO Q8 #9 capsule 03/22/18 Enoxaparin [Lovenox] 40 mg SC DAILY@1000 syringe 03/22/18 Following Prescrptions Were Given to Patient: Cephalexin [Keflex] 500 mg PO Q8 #9 capsule Primary Care Physician: Patel Veliz Chi, MD [Primary Care Provider] - Please follow up with your Primary Care Physician in: in 3-5 days Disposition: Home Minutes spent on discharge:: 35 Patient Condition:: Good Medical Necessity - Tobacco Use Smoking Status: Current every day smoker Tobacco Use: Cigarettes Meaningful Use Info Meaningful Use Diagnoses (Choose all that apply): None applicable Code Visit Inpatient E&M: 30757 Disch Hosp
[2018-03-22 09:48] VITALS: BP 105/63; PULSE 68; RESP 18; TEMP 36.8; O2SAT 100
[2018-03-22] MEDS: Ceftriaxone 1 GM/50 ML BAG IV (09:51)
[2018-03-22 09:52] VITALS: PULSE 68
[2018-03-22] MEDS: Etodolac 200 MG Capsule 400 MG PO (09:52)
[2018-03-22] MEDS: Famotidine 20 MG Tablet 40 MG PO (09:52)
[2018-03-22] MEDS: Calcium Carb/Vitamin D 1 TABLET Tablet PO (09:52)
[2018-03-22] MEDS: Metoprolol Tartrate 25 MG Tablet PO (09:52)
[2018-03-22] MEDS: Phenytoin Na 100 MG Capsule PO ×2 (09:52→13:45)
--- NOTE | 2018-03-22 09:52 | CASEMGMT ---
Pt is discharged. GRAHAM called pt's caser shoe parts, Beata Chen, let her know that pt is discharged. She will call [facility] to let them know pt is going home today. GRAHAM faxed discharge instructions and summary to Beata wesley/Ayanna Grajeda/Markus. No further needs are anticipated. CRISTIANO Moreira, PROGRAMMING ENGINEER
[2018-03-22] MEDS: Enoxaparin 40 MG/0.4 ML Syringe SC (09:53)
[2018-03-22] MEDS: Gabapentin 300 MG Capsule PO (09:53)
[2018-03-22] MEDS: Aspirin 81 MG TAB.CHEW PO (09:53)
[2018-03-22] MEDS: buPROPion (SR) 150 MG Tablet.SA PO (09:54)
[2018-03-22] MEDS: Magnesium Hydroxide 30 ML UDC PO (09:57)
[2018-03-22 11:43] VITALS: BP 119/81; PULSE 67; RESP 18; TEMP 36.7; O2SAT 98
[2018-03-22] MEDS: amLODIPine 2.5 MG Tablet PO (11:45)
--- NOTE | 2018-03-23 15:53 | CASEMGMT ---
[facility] PHONE CALL DC Date: 03/22/18 Disposition: Home with resumption of Passport services through [facility] LACE/STRATA: 01/10 Pt returned home with resuming of Passport. Call to home phone. No answer and no message machine. Jm OLIVON RN AC
== END 2018-03-22 14:29 | disposition home or self-care (01) | DRG 690 ==
LOC: ED 21:02 → MS2 03-20
PROVIDERS: Admitting Provider Family Medicine; Emergency Provider Emergency Medicine; Family Provider Family Medicine Geriatric Medicine; PCP Family Medicine Geriatric Medicine; Visit Provider Family Medicine
DX: N39.0 Urinary tract infection, site not specified (principal); J96.11 Chronic respiratory failure with hypoxia; Z99.81 Dependence on supplemental oxygen; G40.909 Epilepsy, unspecified, not intractable, without status epilepticus; E78.5 Hyperlipidemia, unspecified; G25.81 Restless legs syndrome; F17.210 Nicotine dependence, cigarettes, uncomplicated; G47.33 Obstructive sleep apnea (adult) (pediatric); I95.9 Hypotension, unspecified; B96.89 Other specified bacterial agents as the cause of diseases classified elsewhere; I10 Essential (primary) hypertension; J44.9 Chronic obstructive pulmonary disease, unspecified; F32.9 Major depressive disorder, single episode, unspecified; G47.00 Insomnia, unspecified; M51.36 Other intervertebral disc degeneration, lumbar region
CPT/HCPCS: 71045; 74176; 80048; 80076; 80185; 81001; 83605; 83735; 85025; 87077; 87086; 87088; 94640; 97161; 97165; 99285; J7030; J7040; A4216; J2405

== ENCOUNTER 2018-03-29 16:52 | Emergency (ER) | payer MEDICARE, SELFPAY ==
[2018-03-29 16:53] VITALS: BP 122/96; PULSE 89; RESP 16; TEMP 36.8; O2SAT 93; BMI 26.1
[2018-03-29 18:00] VITALS: BP 109/96; PULSE 96; RESP 20; O2SAT 93
--- NOTE | 2018-03-29 18:06 | RAD_ITS ---
STUDY: X-RAY CHEST REASON FOR EXAM: Female, 67 years old. Cough TECHNIQUE: AP portable COMPARISON: March 19, 2018 FINDINGS: Lungs are mildly hyperinflated but clear. There is no demonstrated pleural abnormality. Normal size heart. Normal mediastinum and denae. Normal visualized pulmonary arteries. Normal visualized aortic arch and descending thoracic aorta. Normal visualized thoracic spine. Normal visualized ribs, clavicles, and shoulders. There is no demonstrated abnormality of the visualized soft tissue structures of the upper abdomen. No significant change since prior exam RAD/Chest 1 View (Portable) IMPRESSION: No acute cardiopulmonary pathology Electronically Signed: Sheng Crawford MD at 19:00 EDT , Service support ,
--- NOTE | 2018-03-29 18:06 | CT_ITS ---
STUDY: CT BRAIN WITHOUT CONTRAST REASON FOR EXAM: Female, 67 years old. Weakness with seizures and dizziness RADIATION DOSAGE (If Supplied By Facility): CTDIvol = ( 44.99 ) mGy, DLP = ( 779.24 ) mGycm TECHNIQUE: Transaxial CT imaging of the brain was performed without administration of intravenous contrast material. Individualized dose optimization techniques were used for this CT. COMPARISON: March 05, 2018 FINDINGS: Normal soft tissue structures. Normal calvarium. Mild atrophy and periventricular white matter ischemic changes.. Normal basal ganglia and thalami. Normal brainstem. Normal cerebellum. There is no intracranial hemorrhage. There are no findings of an acute ischemic infarction. Postsurgical changes of the orbits. Normal visualized paranasal sinuses. No significant changes since prior exam CT/Brain/Head without Contrast IMPRESSION: Mild atrophy and periventricular white matter ischemic changes. No evidence for acute bleed. If concern for acute infarct MRI recommended.. Electronically Signed: Sheng Crawford MD at 20:00 EDT , Service support ,
--- NOTE | 2018-03-29 18:06 | EKG12_ITS ---
Test Reason : SEIZURE Blood Pressure : / mmHG Vent. Rate : 092 BPM Atrial Rate : 092 BPM P-R Int : 158 ms QRS Dur : 086 ms QT Int : 356 ms P-R-T Axes : 071 052 053 degrees QTc Int : 440 ms Normal sinus rhythm Normal ECG Confirmed by ROLAN LEACH, LEONELA ([id number]), rewrite editor GOPI RAMIREZ ([id number] on 04/03/2018 3:40:17 PM Referred By: VITO Confirmed By:LEONEAL GONGORA MD
--- NOTE | 2018-03-29 18:10 | ED.DCSUM_ITS ---
- ER Visit Summary Date of Service: 03/29/18 Chief Complaint: Abdominal pain, loss of consciousness History of Present Illness: The patient is a 67 F with history of seizure disorder who was found unconscious on her floor at home by her health aide. Patient does not remember what happened but was found unconscious. Patient denies any urinary incontinence or biting her tongue. She does not know if she had a seizure. She states for the last 3 days she has been having right lower abdominal pain prior to urination with associated dysuria. She has a history of prior urinary infections. She has been compliant with all her medications for seizures. She denies fever, chest pain, shortness of breath, nausea. She has been vomiting yesterday and is constipated. She is not currently having any neck pain or head pain but does not know if she hit her head. Patient is status post appendectomy and cholecystectomy. Physical Examination: Vital signs: afebrile, hemodynamically stable, no hypoxia on room air General: well nourished, well developed, in no distress Skin: warm, dry, no rash, no pallor HEENT: normocephalic and atraumatic, no tenderness; PERRL, EOMI, moist mucous membranes, no maxillofacial trauma, no tongue lesions Cardiovascular: regular rate and rhythm without murmurs, no peripheral edema, 2+ pulses all distal extremities Respiratory: No increased work of breathing, lungs are diffusely diminished Abdominal: Abdomen is soft, right lower quadrant is tender with normoactive bowel sounds, no guarding or rebound, no masses MSK: Moves all extremities, no deformities, normal strength Neuro: Awake and alert, oriented ?4. No facial droop, sensation and motor fun ction intact and symmetric Test Results: Abnormal Lab Results 03/29/18 03/29/18 03/29/18 19:05 19:05 19:05 WBC 8.4 RBC 4.53 Hgb 13.9 Hct 43.4 MCV 95.8 MCH 30.7 MCHC 32.0 RDW 14.7 H RDW Differential 51.7 H Plt Count 241 MPV 10.0 Immature Gran % (Auto) 0.100 Neut % (Auto) 61.7 Lymph % (Auto) 25.7 [place] % (Auto) 7.5 Eos % (Auto) 4.5 Baso % (Auto) 0.5 Absolute Neuts (auto) 5.2 Absolute Lymphs (auto) 2.15 Total Counted Not Reportable PT 12.9 INR 1.0 APTT 21.0 L Sodium 142 Potassium 4.0 Chloride 106 Carbon Dioxide 30.0 Anion Gap 6 BUN 13 Creatinine 0.66 Estim Creat Clear Calc 48.45 Est GFR (MDRD) Af Amer 115 Est GFR (MDRD) Non-Af 95 BUN/Creatinine Ratio 19.8 Glucose 106 Lactic Acid Calcium 8.7 Total Bilirubin 0.20 AST 29 ALT 37 Alkaline Phosphatase 82 Troponin I < 0.015 Total Protein 7.7 Albumin 3.3 Globulin 4.4 H Albumin/Globulin Ratio 0.8 L Lipase 91 Urine Color Urine Clarity Urine pH Ur Specific [place] Urine Protein Urine Glucose (UA) Urine Ketones Urine Occult Blood Urine Nitrite Urine Bilirubin Urine Urobilinogen Ur Leukocyte Esterase Urine RBC Urine WBC Ur Squamous Epith Cells Urine Bacteria Urine Mucus 03/29/18 03/29/18 19:05 21:14 WBC RBC Hgb Hct MCV MCH MCHC RDW RDW Differential Plt Count MPV Immature Gran % (Auto) Neut % (Auto) Lymph % (Auto) [place] % (Auto) Eos % (Auto) Baso % (Auto) Absolute Neuts (auto) Absolute Lymphs (auto) Total Counted PT INR APTT Sodium Potassium Chloride Carbon Dioxide Anion Gap BUN Creatinine Estim Creat Clear Calc Est GFR (MDRD) Af Amer Est GFR (MDRD) Non-Af BUN/Creatinine Ratio Glucose Lactic Acid 1.4 Calcium Total Bilirubin AST ALT Alkaline Phosphatase Troponin I Total Protein Albumin Globulin Albumin/Globulin Ratio Lipase Urine Color Yellow Urine Clarity Clear Urine pH 8.0 Ur Specific [place] 1.010 Urine Protein Negative Urine Glucose (UA) Normal Urine Ketones Negative Urine Occult Blood Negative Urine Nitrite Negative Urine Bilirubin Negative Urine Urobilinogen Normal Ur Leukocyte Esterase Negative Urine RBC 0 SEEN Urine WBC 0 SEEN Ur Squamous Epith Cells 0-5 SEEN Urine Bacteria 0 SEEN Urine Mucus 0 SEEN Clinical Impression(s) from Imaging Studies Brain CT 03/29/18 18:06 IMPRESSION: Mild atrophy and periventricular white matter ischemic changes. No evidence for acute bleed. If concern for acute infarct MRI recommended.. Electronically Signed: Sheng Crawford MD at 20:00 EDT , Service support , Chest X-Ray 03/29/18 18:06 IMPRESSION: No acute cardiopulmonary pathology Electronically Signed: Sheng Crawford MD at 19:00 EDT , Service support , Medications Given Discontinued Medications Sodium Chloride () 500 mls @ 1,000 mls/hr IV .Q30M CHEN Stop: 03/29/18 18:44 Last Admin: 03/29/18 20:30 Dose: 1,000 mls/hr Morphine Sulfate () 4 mg SC X1 ONE Stop: 03/29/18 20:51 Last Admin: 03/29/18 20:55 Dose: 4 mg Ondansetron HCl (Zofran Odt) 4 mg PO X1 ONE Stop: 03/29/18 20:53 Last Admin: 03/29/18 20:52 Dose: 4 mg Emergency Department Course and Treatment: Patient presents after an unwitnessed loss of consciousness, and it is unclear whether it was a seizure. Because it was unwitnessed and she may have hit her head, CT of the head was performed. Patient is also having intermittent abdominal pain, worse prior to urination, thus workup was performed to look for UTI or other source of patient's complaints. Patient CT head showed no intracranial hemorrhage. CBC showed no leukocytosis or anemia. CMP showed no hepatic, renal or electrolyte derangements. Lipase normal. Troponin negative. Lactate normal at 1.4. EKG showed sinus rhythm without ischemia or ectopy. Chest x-ray showed no acute process. Patient was given morphine and Zofran for symptomatic relief and also received normal saline for hydration. Patient's urine was delayed, and patient began stating she wanted to go home. Because her main complaint was abdominal pain with urination, she was willing to stay and eventually gave a urine sample. It showed no signs of hematuria or pyuria. Culture is pending. I discussed with patient that her abdominal complaint had not been resolved, and a CT abdomen and pelvis might be helpful in eliciting the cause of her abdominal pain. Because her abdominal pain is related to urination and is intermittent, I have low suspicion that this is an abdominal aneurysm or dissection. Patient did not want to stay any longer and declined any further workup, including the abdominal CT. Patient was encouraged to come back if she has any concerns. No alternate cause of patient's brief episode of unresponsiveness that was unwitnessed at home was noted. I suspect patient may have had a breakthrough seizure. She will return if any worsening of her condition. Patient discharged home in improved condition. Treatment Plan: [] Disposition: [] Impression: Acute seizure, lower abdominal pain, dysuria This note was generated with Gamestaq dictation software. It may contain incorrect words, spelling, and punctuation that were not noted in review of the chart prior to signing ED Disposition - Plan for ED Patient: Disposition: Home or Assisted Living Chief Complaint: Seizure Instructions: ED Abdominal Pain Unkn Cause, ED Seizure Recurrent Referrals: Patel Veliz Chi, MD [Primary Care Provider] - 1-2 Days if not improving Additional Instructions: Please follow-up with your doctor within 1-2 days for another evaluation, especially since you had the episode of possible seizure versus passing out. Your lab work and urine showed no signs of a urine infection. If you would like further workup of your abdominal pain, please return emergency department. Use your medications for pain as prescribed by your doctor. If you have any worsening of your condition or any new concerning symptoms, please return immediately to the emergency department for another evaluation.
[2018-03-29 19:27] LABS: Absolute Lymphocyte Count 2.15 X10^3/ul (0.83-4.51); Absolute Neutrophil Count 5.2 X10^3/uL (2.0-7.7); Basophil# 0.04 X10^3/uL; Basophil% 0.5 % (0-1); Eosinophil# 0.38 X10^3/uL; Eosinophils% 4.5 % (0-5); Hematocrit 43.4 % (37-47); Hemoglobin 13.9 g/dl (12.0-15.0); Lymphocyte # 2.15 X10^3/ul (4.0); Lymphocyte % 25.7 % (19-41); Mean Corpuscular Hgb 30.7 pg (27.0-32.0); Mean Corpuscular Volume 95.8 fL (81-99); Monocyte# 0.63 X10^3/uL; Monocyte% 7.5 % (0-10); Neutrophil # 5.15 X10^3/uL (2.7-7.7); Neutrophil % 61.7 % (47-70); Platelet Count 241 K/mm3 (150-450); RBC Distribution Width CV 14.7 % (11.6-14.6); RBC Distribution Width SD 51.7 fl (35.1-43.9); Red Blood Count 4.53 M/mm3 (4.2-5.4); White Blood Count 8.4 K/mm3 (4.4-11.0)
[2018-03-29 19:29] LABS: Prothrombin Time (Protime)PT. 12.9 SECONDS (11.7-14.9)
[2018-03-29 19:32] LABS: POSITIVE COUNT NO; POSITIVE DIFFERENTIAL NO; POSITIVE MORPHOLOGY NO
[2018-03-29 20:04] LABS: ALB/GLOB Ratio 0.8 RATIO (0.9-2.4); AST(SGOT) 29 U/L (15-37); Alanine Aminotransfer ALT/SGPT 37 U/L (13-56); Albumin, Serum 3.3 g/dL (3.2-5.0); Alkaline Phosphatase 82 U/L (45-117); Anion Gap 6 (5-15); BUN 13 mg/dL (7-18); BUN/Creat Ratio 19.8 RATIO (10-20); Calcium,Total 8.7 mg/dL (8.5-10.1); Chloride 106 mmol/L (98-107); Creatinine, Serum 0.66 mg/dL (0.55-1.02); EST Glomerular Filtration Rate 95 mL/min (>60); Est Glom Filt Rate - Afr Amer 115 mL/min (>60); Estimated Creatinine Clearance 48.45 ml/min; Globulin 4.4 g/dL (2.2-4.2); Glucose 106 mg/dL (74-106); Lactic Acid 1.4 mmol/L (0.4-2.0); Lipase 91 U/L (73-393); Protein, Total 7.7 g/dL (6.4-8.2); Sodium Level 142 mmol/L (136-145)
--- NOTE | 2018-03-29 20:17 | ED.RN ---
PATIENT IS REFUSING TO WEAR TELE MONITOR. PT STATING THAT SHE WANTS TO LEAVE AMA. DR. ALMANZA NOTIFIED. PT ALERTED THAT PHYSICIAN WILL SEE HER TO DISCUSS LEAVING AMA
[2018-03-29] MEDS: Ondansetron ODT 4 MG Tablet PO (20:52)
[2018-03-29] MEDS: morphine 10 MG/ML Syringe 4 MG SC (20:55)
[2018-03-29 21:18] LABS: Bacteria 0 SEEN /hpf (None Seen); Mucous, Urine 0 SEEN /hpf (<or=2+); Red Blood Cells-Urine 0 SEEN /hpf (0-5); White Blood Cells 0 SEEN /hpf (0-5)
[2018-03-29 21:24] LABS: Color, Urine Yellow (Yellow); Glucose, Dipstick Normal (Normal); Ketone-Dipstick Negative (Negative); Leukocyte Esterase-Dipstick Negative /ul (Negative); Nitrite-Dipstick Negative (Negative); Occult Blood-Urine Negative /ul (Negative); Protein-Dipstick Negative (Negative); Urine Bilirubin Dipstick Negative (Negative); Urine Clarity Clear (Clear); Urine Urobilinogen Normal (Normal)
[2018-03-29 21:30] LABS: Squamous Epithelial Cells - UA 0-5 SEEN /hpf (5-10)
[2018-03-29 22:14] VITALS: BP 126/70; PULSE 90; RESP 16
--- NOTE | 2018-03-29 22:30 | ED.DEP ---
ED Disposition - Plan for ED Patient: Disposition: Home or Assisted Living Chief Complaint: Seizure Instructions: ED Seizure Recurrent, ED Abdominal Pain Unkn Cause Referrals: Patel Veliz Chi, MD [Primary Care Provider] - 1-2 Days if not improving Additional Instructions: Please follow-up with your doctor within 1-2 days for another evaluation, especially since you had the episode of possible seizure versus passing out. Your lab work and urine showed no signs of a urine infection. If you would like further workup of your abdominal pain, please return emergency department. Use your medications for pain as prescribed by your doctor. If you have any worsening of your condition or any new concerning symptoms, please return immediately to the emergency department for another evaluation.
== END 2018-03-29 22:51 | disposition home or self-care (01) ==
PROVIDERS: Emergency Provider Emergency Medicine; Family Provider Family Medicine Geriatric Medicine; PCP Family Medicine Geriatric Medicine
DX: G40.909 Epilepsy, unspecified, not intractable, without status epilepticus (principal); R10.31 Right lower quadrant pain; R30.0 Dysuria; J44.9 Chronic obstructive pulmonary disease, unspecified; H40.9 Unspecified glaucoma; Z87.440 Personal history of urinary (tract) infections; Z79.82 Long term (current) use of aspirin; Z79.899 Other long term (current) drug therapy
CPT/HCPCS: 70450; 71045; 80053; 81001; 83605; 83690; 84484; 85025; 85610; 85730; 93005; 96372; 99285; J7030; J7040; P9612; A4216; J2405

== ENCOUNTER 2018-04-02 17:47 | Emergency (ER) | payer MEDICARE, SELFPAY ==
[2018-04-02 17:47] VITALS: BP 132/81; PULSE 85; RESP 25; TEMP 36.8; O2SAT 95; BMI 29.4
[2018-04-02 18:05] LABS: Bedside Glucose 81 mg/dL (70-110)
--- NOTE | 2018-04-02 18:30 | EKG12_ITS ---
Test Reason : [facility] [place] Pressure : / mmHG Vent. Rate : 093 BPM Atrial Rate : 093 BPM P-R Int : 166 ms QRS Dur : 066 ms QT Int : 342 ms P-R-T Axes : 069 031 029 degrees QTc Int : 425 ms Normal sinus rhythm Low voltage QRS Septal infarct , age undetermined Abnormal ECG Confirmed by JAMES LEACH, LUZ ([id number]), scientific editor GOPI RAMIREZ ([id number] on 04/06/2018 11:11:41 AM Referred By: KARYNA Confirmed By:LUZ RAMIREZ MD
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
[2018-04-02 18:46] LABS: Absolute Lymphocyte Count 2.41 X10^3/ul (0.83-4.51); Absolute Neutrophil Count 2.8 X10^3/uL (2.0-7.7); Basophil# 0.02 X10^3/uL; Basophil% 0.3 % (0-1); Eosinophil# 0.14 X10^3/uL; Eosinophils% 2.4 % (0-5); Hematocrit 42.3 % (37-47); Hemoglobin 13.4 g/dl (12.0-15.0); Lymphocyte # 2.41 X10^3/ul (4.0); Lymphocyte % 41.1 % (19-41); Mean Corp Hgb Conc 31.7 g/gl (32-36); Mean Corpuscular Hgb 30.2 pg (27.0-32.0); Mean Corpuscular Volume 95.5 fL (81-99); Mean Platelet Vol. 10.3 fl (6.2-12.0); Monocyte# 0.48 X10^3/uL; Monocyte% 8.2 % (0-10); Neutrophil # 2.81 X10^3/uL (2.7-7.7); Neutrophil % 47.8 % (47-70); Platelet Count 227 K/mm3 (150-450); RBC Distribution Width CV 14.4 % (11.6-14.6); RBC Distribution Width SD 50.7 fl (35.1-43.9); Red Blood Count 4.43 M/mm3 (4.2-5.4); White Blood Count 5.9 K/mm3 (4.4-11.0)
[2018-04-02 18:47] VITALS: BP 113/92; PULSE 81; RESP 19; O2SAT 95
[2018-04-02 18:47] LABS: POSITIVE COUNT NO; POSITIVE DIFFERENTIAL NO; POSITIVE MORPHOLOGY NO
[2018-04-02 19:00] LABS: Alcohol, Blood (Medical)-Serum < 3.0 mg/dL
[2018-04-02 19:08] LABS: ALB/GLOB Ratio 0.8 RATIO (0.9-2.4); AST(SGOT) 22 U/L (15-37); Alanine Aminotransfer ALT/SGPT 22 U/L (13-56); Albumin, Serum 3.2 g/dL (3.2-5.0); Alkaline Phosphatase 83 U/L (45-117); Anion Gap 5 (5-15); BUN 10 mg/dL (7-18); BUN/Creat Ratio 16.8 RATIO (10-20); Calcium,Total 8.4 mg/dL (8.5-10.1); Chloride 108 mmol/L (98-107); Creatinine, Serum 0.59 mg/dL (0.55-1.02); EST Glomerular Filtration Rate 107 mL/min (>60); Est Glom Filt Rate - Afr Amer 129 mL/min (>60); Estimated Creatinine Clearance 48.45 ml/min; Globulin 3.9 g/dL (2.2-4.2); Glucose 88 mg/dL (74-106); Protein, Total 7.1 g/dL (6.4-8.2); Sodium Level 142 mmol/L (136-145); Thyroid Stim Hormone (TSH) 0.69 uIU/mL (0.358-3.74)
[2018-04-02 19:14] LABS: Bacteria 0 SEEN /hpf (None Seen); Mucous, Urine 0 SEEN /hpf (<or=2+); Red Blood Cells-Urine 0 SEEN /hpf (0-5); White Blood Cells 0 SEEN /hpf (0-5)
[2018-04-02 19:16] LABS: Color, Urine Yellow (Yellow); Glucose, Dipstick Normal (Normal); Ketone-Dipstick Negative (Negative); Leukocyte Esterase-Dipstick Negative /ul (Negative); Nitrite-Dipstick Negative (Negative); Occult Blood-Urine Negative /ul (Negative); Protein-Dipstick Negative (Negative); Urine Clarity Clear (Clear); Urine Urobilinogen Normal (Normal)
[2018-04-02 19:17] LABS: Urine Bilirubin Dipstick 1 mg/dL (Negative)
[2018-04-02 19:22] VITALS: BP 107/67; PULSE 80; RESP 16; O2SAT 95
[2018-04-02 19:23] LABS: Squamous Epithelial Cells - UA 0-5 SEEN /hpf (5-10)
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
[2018-04-02 19:27] LABS: Amphetamine Urine VISTA NEGATIVE (<1000 ng/mL); Barbiturate Urine VISTA POSITIVE (< 200 ng/mL); Benzodiazepine Urine VISTA POSITIVE (< 200 ng/mL); Cocaine Urine VISTA NEGATIVE (< 300 ng/mL); Ecstacy Urine VISTA NEGATIVE (< 500 ng/mL); Methadone Urine VISTA NEGATIVE (< 300 ng/mL); PCP Urine VISTA NEGATIVE (< 25 ng/mL); THC Urine VISTA NEGATIVE (< 50 ng/mL); Vista UDS pH Range 6
[2018-04-02] MEDS: LORazepam 2 MG/ML Syringe 1 MG IV ×2 (19:50→21:47)
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
[2018-04-02 20:00] VITALS: RESP 18
[2018-04-02 21:38] VITALS: BP 120/84; PULSE 63; RESP 16; O2SAT 97
[2018-04-02 23:04] VITALS: RESP 16
[2018-04-02] MEDS: Morphine 2 MG/ML Syringe IV (23:04)
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
[2018-04-03] VITALS (10 sets, daily range): BP systolic 113–156; BP diastolic 64–96; PULSE 78–97; RESP 14–18; TEMP 36.9; O2SAT 93–97
--- NOTE | 2018-04-03 04:19 | RAD_ITS ---
STUDY: X-RAY CHEST REASON FOR EXAM: Female, 67 years old. COPD TECHNIQUE: Single frontal view of the chest. COMPARISON: None. FINDINGS: The lungs are clear and expanded. There is no demonstrated pleural abnormality. Normal size heart. Normal mediastinum and denae. Normal visualized pulmonary arteries. Normal visualized aortic arch and descending thoracic aorta. Normal visualized thoracic spine. There is degenerative osteoarthritis of the bilateral shoulders. There is no demonstrated abnormality of the visualized soft tissue structures of the upper abdomen. RAD/Chest 1 View (Portable) IMPRESSION: No acute pulmonary findings. Electronically Signed: Merrick Tidwell MD at 4:43 EDT Tel , Service support ,
[2018-04-03] MEDS: Gabapentin 600 MG Tablet 300 MG PO (04:57)
[2018-04-03] MEDS: Mirtazapine 15 MG Tablet PO (04:57)
[2018-04-03] MEDS: oxyCODONE 5 MG Tablet 10 MG PO (04:57)
[2018-04-03] MEDS: Temazepam 15 MG Capsule 30 MG PO (04:57)
--- NOTE | 2018-04-03 08:39 | ED.RN ---
SPOKE WITH KENNETH FROM [facility], REQUESTING THAT [facility] BE FAXED. KENNETH STATED THAT PT HAS BEEN ACCEPTED, JUST WAITING ON [facility].
--- NOTE | 2018-04-03 09:51 | ED.RN ---
[facility] CALLED AND GAVE US ACCEPTING INFORMATION.
[2018-04-03] MEDS: Senna/Docusate Sodium 1 Tablet 2 TABLET PO (10:07)
[2018-04-03] MEDS: Phenytoin Na 100 MG Capsule PO (10:08)
[2018-04-03] MEDS: Metoprolol Tartrate 25 MG Tablet PO (10:08)
[2018-04-03] MEDS: Etodolac 200 MG Capsule 400 MG PO (10:08)
--- NOTE | 2018-04-03 10:22 | ED.RN ---
CALLED [facility] FOR TRANSPORT. DISPATCHER STATED THAT [facility] WOULD BE HERE IN 15-20 MINUTES.
== END 2018-04-03 10:48 ==
PROVIDERS: Emergency Medicine; Emergency Provider Emergency Medicine; Family Provider Family Medicine Geriatric Medicine; PCP Family Medicine Geriatric Medicine
DX: T14.91XA Suicide attempt, initial encounter (principal); S50.812A Abrasion of left forearm, initial encounter; S50.811A Abrasion of right forearm, initial encounter; S70.312A Abrasion, left thigh, initial encounter; S70.311A Abrasion, right thigh, initial encounter; X78.9XXA Intentional self-harm by unspecified sharp object, initial encounter; Y93.89 Activity, other specified; Y92.009 Unspecified place in unspecified non-institutional (private) residence as the place of occurrence of the external cause; F32.9 Major depressive disorder, single episode, unspecified; J44.9 Chronic obstructive pulmonary disease, unspecified; G47.33 Obstructive sleep apnea (adult) (pediatric); G40.909 Epilepsy, unspecified, not intractable, without status epilepticus; Z79.82 Long term (current) use of aspirin; Z79.899 Other long term (current) drug therapy; Z72.0 Tobacco use
CPT/HCPCS: 70450; 71045; 80053; 80307; 80320; 81001; 82962; 84443; 85025; 93005; 96374; 96375; 96376; 99285; A4216; G0480

== ENCOUNTER → 2018-04-26 15:28 | Outpatient (CLI) | payer MEDICARE, SELFPAY ==
--- NOTE | 2018-04-26 15:37 | MRI_ITS ---
STUDY: MRI LUMBAR SPINE WITHOUT CONTRAST REASON FOR EXAM: Female, 67 years old. Low back pain and bilateral leg pain. TECHNIQUE: Standardized fat and water weighted pulse sequences were obtained in the sagittal and axial planes. COMPARISON: 08/31/2012. FINDINGS: T11-T12: (Sagittal only). Minimal anterior wedging of the superior endplates of T11 and T12 vertebral bodies may be developmental or from remote injury. They are unchanged. Normal T11 inferior endplate. Normal disc height, hydration and morphology. Normal central canal and intervertebral neural foramina. T12-L1: (Sagittal only). Normal T12 inferior endplate. Slight anterior wedging of L1 superior endplate may be developmental. Normal disc height, hydration and morphology. No ventral extradural defect. Normal central canal and intervertebral neural foramina. Normal lumbar lordosis. There is no substantial scoliosis. Normal conus medullaris that terminates at the upper L1 vertebral body level. L1-2: Normal endplates. Normal disc height, hydration and morphology. Normal bilateral facet joints. Normal central canal and bilateral lateral recesses. Normal bilateral intervertebral neural foramina. L2-3: Normal endplates. Normal disc height, hydration and morphology. Mild central canal stenosis. The AP canal diameter is 10 mm. Normal bilateral lateral recesses. Mild degenerative facet arthropathy. Normal bilateral intervertebral neural foramina. Small benign focal fatty infiltration in the upper aspect of the L2 vertebral body is confirmed on the sagittal STIR sequence. L3-4: Normal endplates. Normal disc height, hydration and morphology. No ventral extradural defect. Mild central canal stenosis. The AP canal diameter is 10 mm. Normal bilateral lateral recesses. Moderate degenerative facet arthropathy. Normal bilateral intervertebral neural foramina. L4-5: Normal endplates. Mild disc space height narrowing with mild degenerative anterolisthesis of L4 on L5. Very severe central canal stenosis with posterior ligamenta flava hypertrophy. Pronounced bilateral degenerative facet arthropathy, left greater than right. Fluid distention of the left facet joint. Severe stenosis of the bilateral lateral recesses. Mild stenosis of the bilateral intervertebral neural foramina. L5-S1: Anterior marginal spurs. Mild disc space height narrowing with mild Modic type II degenerative vertebral marrow fatty changes underneath the vertebral endplates. Moderately pronounced central canal stenosis surrounded by epidural lipomatosis. Mild degenerative facet arthropathy. Normal bilateral lateral recesses. Normal intervertebral neural foramina. Normal visualized sacral ala. Normal visualized paraspinous soft tissue structures. MRI/Spine Lumbar (Routine) IMPRESSION: 1. Very severe central canal stenosis at L4-L5 disc level, severe stenosis of the bilateral lateral recesses, mild stenosis of the intervertebral neural foramina and mild degenerative anterolisthesis of L4 on L5. 2. No MRI evidence of lumbar extruded disc fragment. 3. Moderately pronounced central canal stenosis at L5-S1 disc level surrounded by epidural lipomatosis and mild bilateral degenerative facet arthropathy. 4. Mild central canal stenosis at L2-L3 and L3-L4 disc space levels. Electronically Signed: Dexter Zavaleta MD at 15:08 EST , Service support ,
== END ==
PROVIDERS: Family Provider Family Medicine Geriatric Medicine; PCP Family Medicine Geriatric Medicine; Referring Provider Anesthesiology Pain Medicine; Visit Provider Anesthesiology Pain Medicine
DX: M48.07 Spinal stenosis, lumbosacral region (principal); M46.86 Other specified inflammatory spondylopathies, lumbar region
CPT/HCPCS: 72148

== ENCOUNTER → 2018-05-19 13:23 | Outpatient (CLI) | payer MEDICARE, SELFPAY ==
--- NOTE | 2018-05-19 13:34 | RAD_ITS ---
HISTORY: SOB AND COUGH WITH WEAKNESS FOR ABOUT 4 DAYS NOW. HX OF COPD. EXAM: XR Chest 2 Views: COMPARISON: 04/03/2018 and 03/29/2018 FINDINGS: No significant changes. Normal heart size. Emphysema with bilateral hyperinflation. No vascular congestion, pleural effusion, or acute pulmonary infiltration. No pneumothorax. Atherosclerotic thoracic aorta. RAD/Chest PA and Lateral IMPRESSION: 1. No acute disease or significant change. 2. Chronic lung disease with emphysema. at 0658 Reported and signed by: Jerel Hall MD Electronically Signed: Jerel Hall, at 6:56 EST Tel , Service support ,
--- OUTSIDE RECORDS SUMMARY | 2018-07-14 12:48 | XMS RPT_ITS ---
:1950 Author Organization [place] Support Name Relationship Address Phone ZAHIDA CATHERINE Unavailable Unavailable + marcus QUAN [id number] ASAD RAMIREZ Unavailable [address] + [place] [address] R Unavailable Unavailable Unavailable ZAHIDA CATHERINE Unavailable Unavailable + marcus QUAN [id number] ASAD RAMIREZ Unavailable [address] + [place] [address] R Unavailable Unavailable Unavailable ZAHIDA CATHERINE Unavailable Unavailable + marcus QUAN [id number] ASAD RAMIREZ Unavailable [address] + [place] [address] R Unavailable Unavailable Unavailable ZAHIDA CATHERINE Unavailable Unavailable + marcus QUAN [id number] ASAD RAMIREZ Unavailable [address] + [place] [address] R Unavailable Unavailable Unavailable ZAHIDA CATHERINE Unavailable Unavailable + marcus QUAN [id number] ASAD RAMIREZ Unavailable [address] + [place] [address] R Unavailable Unavailable Unavailable ASAD RAMIREZ Unavailable [address] + [place] [address] R Unavailable Unavailable Unavailable ASAD RAMIREZ Unavailable [address] + [place] [address] R Unavailable Unavailable Unavailable ASAD RAMIREZ Unavailable [address] + [place] [address] R Unavailable Unavailable Unavailable ASAD RAMIREZ Unavailable [address] + [place] [address] R Unavailable Unavailable Unavailable RAMIREZ, ASAD Unavailable [address] + [place] [address] R Unavailable Unavailable Unavailable RAMIREZ, ASAD Unavailable [address] + [place] [address] R Unavailable Unavailable Unavailable RAMIREZ, ASAD Unavailable [address] + [place] [address] R Unavailable Unavailable Unavailable RAMIREZ, ASAD Unavailable [address] + [place] [address] R Unavailable Unavailable Unavailable RAMIREZ, ASAD Unavailable [address] + [place] [address] R Unavailable Unavailable Unavailable RAMIREZ, ASAD Unavailable [address] + [place] [address] R Unavailable Unavailable Unavailable FLORIN, ZAHIDA Unavailable Unavailable + [place] [address] RAMIREZ, ASAD Unavailable [address] + [place] [address] R Unavailable Unavailable Unavailable FLORIN ZAHIDA Unavailable Unavailable + [place] [address] RAMIREZ, ASAD Unavailable [address] + [place] [address] R Unavailable Unavailable Unavailable FLORIN, ZAHIDA Unavailable Unavailable + [place] [address] RAMIREZ, ASAD Unavailable [address] + [place] [address] R Unavailable Unavailable Unavailable RAMIREZ, ASAD Unavailable [address] + [place] [address] R Unavailable Unavailable Unavailable RAMIREZ, ASAD Unavailable [address] + [place] [address] R Unavailable Unavailable Unavailable RAMIREZ, ASAD Unavailable [address] + [place] [address] R Unavailable Unavailable Unavailable R Unavailable Unavailable Unavailable RAMIREZ, ASAD Unavailable [address] + [place] [address] RAMIREZ, CRYSTAL Unavailable [address] + [address] [place] [address] R Unavailable Unavailable Unavailable RAMIREZ, ASAD Unavailable [address] + [place] [address] RAMIREZ, CRYSTAL Unavailable [address] + [address] [place] [address] R Unavailable Unavailable Unavailable RAMIREZ, ASAD Unavailable [address] + [place] [address] RAMIREZ, CRYSTAL Unavailable [address] + [address] [place] [address] R Unavailable Unavailable Unavailable RAMIREZ, ASAD Unavailable [address] + [place] [address] RAMIREZ, CRYSTAL Unavailable [address] + [address] [place] [address] R Unavailable Unavailable Unavailable RAMIREZ, ASAD Unavailable [address] + [address] [place] [address] RAMIREZ, CRYSTAL Unavailable [address] + [address] [place] [address] R Unavailable Unavailable Unavailable RAMIREZ, ASAD Unavailable [address] + [address] [place] [address] RAMIREZ, CRYSTAL Unavailable [address] + [address] [place] [address] R Unavailable Unavailable Unavailable RAMIREZ, ASAD Unavailable [address] + [address] [place] [address] RAMIREZ, CRYSTAL Unavailable [address] + [address] [place] [address] R Unavailable Unavailable Unavailable RAMIREZ, ASAD Unavailable [address] + [address] [place] [address] RAMIREZ, CRYSTAL Unavailable [address] + [address] [place] [address] R Unavailable Unavailable Unavailable RAMIREZ, ASAD Unavailable [address] + [address] [place] [address] RAMIREZ, CRYSTAL Unavailable [address] + [address] [place] [address] R Unavailable Unavailable Unavailable RAMIREZ, ASAD Unavailable [address] + [address] [place] [address] RAMIREZ, CRYSTAL Unavailable [address] + [address] [place] [address] R Unavailable Unavailable Unavailable RAMIREZ, ASAD Unavailable [address] + [address] [place] [address] RAMIREZ, CRYSTAL Unavailable [address] + [address] [place] [address] R Unavailable Unavailable Unavailable RAMIREZ, ASAD Unavailable [address] + [address] [place] [address] RAMIREZ, CRYSTAL Unavailable [address] + [address] [place] [address] R Unavailable Unavailable Unavailable RAMIREZ, ASAD Unavailable [address] + [address] [place] [address] RAMIREZ, CRYSTAL Unavailable [address] + [address] [place] [address] R Unavailable Unavailable Unavailable RAMIREZ, ASAD Unavailable [address] + [address] [place] [address] RAMIREZ, CRYSTAL Unavailable [address] + [address] [place] [address] R Unavailable Unavailable Unavailable RAMIREZ, ASAD Unavailable [address] + [address] [place] [address] RAMIREZ, CRYSTAL Unavailable [address] + [address] [place] [address] R Unavailable Unavailable Unavailable RAMIREZ, ASAD Unavailable [address] + [address] [place] [address] RAMIREZ, CRYSTAL Unavailable [address] + [address] [place] [address] R Unavailable Unavailable Unavailable RAMIREZ, ASAD Unavailable [address] + [address] [place] [address] RAMIREZ, CRYSTAL Unavailable [address] + [address] [place] [address] R Unavailable Unavailable Unavailable RAMIREZ, ASAD Unavailable [address] + [address] [place] [address] RAMIREZ, CRYSTAL Unavailable [address] + [address] [place] [address] R Unavailable Unavailable Unavailable RAMIREZ, ASAD Unavailable [address] + [address] [place] [address] RAMIREZ, CRYSTAL Unavailable [address] + [address] [place] [address] R Unavailable Unavailable Unavailable RAMIREZ, ASAD Unavailable [address] + [address] [place] [address] RAMIREZ, CRYSTAL Unavailable [address] + [address] [place] [address] R Unavailable Unavailable Unavailable RAMIREZ, ASAD Unavailable [address] + [address] [place] [address] RAMIREZ, CRYSTAL Unavailable [address] + [address] [place] [address] R Unavailable Unavailable Unavailable RAMIREZ, ASAD Unavailable [address] + [address] [place] [address] RAMIREZ, CRYSTAL Unavailable [address] + [address] [place] [address] R Unavailable Unavailable Unavailable RAMIREZ, ASAD Unavailable [address] + [address] [place] [address] RAMIREZ, CRYSTAL Unavailable [address] + [address] [place] [address] R Unavailable Unavailable Unavailable RAMIREZ, ASAD Unavailable [address] + [address] [place] [address] RAMIREZ, CRYSTAL Unavailable [address] + [address] [place] [address] R Unavailable Unavailable Unavailable RAMIREZ, ASAD Unavailable [address] + [address] [place] [address] RAMIREZ, CRYSTAL Unavailable [address] + [address] [place] [address] R Unavailable Unavailable Unavailable RAMIREZ, ASAD Unavailable [address] + [address] [place] [address] RAMIREZ, CRYSTAL Unavailable [address] + [address] [place] [address] R Unavailable Unavailable Unavailable RAMIREZ, ASAD Unavailable [address] + [address] [place] [address] RAMIREZ, CRYSTAL Unavailable [address] + [address] [place] [address] R Unavailable Unavailable Unavailable RAMIREZ, ASAD Unavailable [address] + [address] [place] [address] RAMIREZ, CRYSTAL Unavailable [address] + [address] [place] [address] R Unavailable Unavailable Unavailable RAMIREZ, ASAD Unavailable [address] + [address] [place] [address] RAMIREZ, CRYSTAL Unavailable [address] + [address] [place] [address] R Unavailable Unavailable Unavailable RAMIREZ, ASAD Unavailable [address] + [address] [place] [address] RAMIREZ, CRYSTAL Unavailable [address] + [address] [place] [address] R Unavailable Unavailable Unavailable RAMIREZ, ASAD Unavailable [address] + [address] [place] [address] RAMIREZ, CRYSTAL Unavailable [address] + [address] [place] [address] R Unavailable Unavailable Unavailable RAMIREZ, ASAD Unavailable [address] + [address] [place] [address] RAMIREZ, CRYSTAL Unavailable [address] + [address] [place] [address] R Unavailable Unavailable Unavailable RAMIREZ, ASAD Unavailable [address] + [address] [place] [address] RAMIREZ, CRYSTAL Unavailable [address] + [address] [place] [address] R Unavailable Unavailable Unavailable RAMIREZ, ASAD Unavailable [address] + [address] [place] [address] RAMIREZ, CRYSTAL Unavailable [address] + [address] [place] [address] R Unavailable Unavailable Unavailable RAMIREZ, ASAD Unavailable [address] + [address] [place] [address] RAMIREZ, CRYSTAL Unavailable [address] + [address] [place] [address] R Unavailable Unavailable Unavailable JAMES ASAD Unavailable [address] + [address] [place] [address] RAMIREZ, CRYSTAL Unavailable [address] + [address] [place] [address] R Unavailable Unavailable Unavailable RAMIREZ ASAD Unavailable [address] + [address] [place] [address] RAMIREZ, CRYSTAL Unavailable [address] + [address] [place] [address] R Unavailable Unavailable Unavailable RAMIREZ ASAD Unavailable [address] + [address] [place] [address] RAMIREZ, CRYSTAL Unavailable [address] + [address] [place] [address] R Unavailable Unavailable Unavailable ASAD RAMIREZ Unavailable [address] + [address] [place] [address] RAMIREZ, CRYSTAL Unavailable [address] + [address] [place] [address] R Unavailable Unavailable Unavailable Care Team Providers Name Role Phone Georgiana Andujar Attending Unavailable Jose Alfredo, Patel Chi Primary Care Unavailable Jose Alfredo, Patel Chi Primary Care Unavailable Eva Simeon Attending Unavailable Jose Alfredo, Patel Chi Primary Care Unavailable Saulo Pagan Admitting Unavailable Thai Collado Attending Unavailable Leobardo Ford Consulting Unavailable Jose Alfredo, Patel Chi Attending Unavailable Jose Alfredo, Patel Chi Referring Unavailable Jose Alfredo, Patel Chi Primary Care Unavailable Saulo Pagan Attending Unavailable Thai Collado Attending Unavailable Leobardo Ford Attending Unavailable Saulo Pagan Admitting Unavailable Elana Barajas [employer]ILDER-C Attending Unavailable Jose Alfredo, Patel Chi Primary Care Unavailable Leobardo Ford Consulting Unavailable Thai Collado Consulting Unavailable Saulo Pagan Admitting Unavailable Leobardo Ford Attending Unavailable Jose Alfredo, Patel Chi Primary Care Unavailable Leobardo Ford Consulting Unavailable Thai Collado Consulting Unavailable Saulo Pagan Admitting Unavailable Thai Collado Attending Unavailable Jose Alfredo, Patel Chi Primary Care Unavailable Leobardo Ford Consulting Unavailable Thai Collado Consulting Unavailable Saulo Pagan Admitting Unavailable Leobardo Ford Attending Unavailable Jose Alfredo, Patel Chi Primary Care Unavailable Logan, Leobardo Consulting Unavailable Jopperi, Thai Consulting Unavailable Pagan, Saulo Admitting Unavailable Juvenal Gonsalez D.O. Attending Unavailable Jose Alfredo, Patel Chi Primary Care Unavailable Logan, Leobardo Consulting Unavailable Jopperi, Thai Consulting Unavailable Pagan, Saulo Admitting Unavailable Tobias, Thai Attending Unavailable Jose Alfredo, Patel Chi Primary Care Unavailable Logan, Leobardo Consulting Unavailable Jopperi, Thai Consulting Unavailable Jose Alfredo, Patel Chi Primary Care Unavailable Tereletsky, Dariusz Admitting Unavailable Juvenal Gonsalez D.O. Consulting Unavailable Piero, Valentín Attending Unavailable Tereletsky, Dariusz Admitting Unavailable Jose Alfredo, Patel Chi Primary Care Unavailable Tereletsky, Dariusz Consulting Unavailable Tereletsky, Dariusz Attending Unavailable Tereletsky, Dariusz Admitting Unavailable Juvenal Gonsalez D.O. Attending Unavailable Jose Alfredo, Patel Chi Primary Care Unavailable Juvenal Gonsalez D.O. Consulting Unavailable Tereletsky, Dariusz Consulting Unavailable Tereletsky, Dariusz Admitting Unavailable Tavo Patino Attending Unavailable Jose Alfredo, Patel Chi Primary Care Unavailable Juvenal Gonsalez D.O. Consulting Unavailable Tereletsky, Dariusz Consulting Unavailable Tereletsky, Dariusz Admitting Unavailable Jose Alfredo, Patel Chi Primary Care Unavailable Juvenal Gonsalez D.O. Consulting Unavailable Piero, Valentín Attending Unavailable Piero, Valentín Consulting Unavailable Tereletsky, Dariusz Admitting Unavailable Juvenal Gonsalez D.O. Attending Unavailable Jose Alfredo, Patel Chi Primary Care Unavailable Juvenal Gonsalez D.O. Consulting Unavailable Piero, Valentín Consulting Unavailable Tereletsky, Dariusz Admitting Unavailable Elana Barajas [employer] BUILDER-C Attending Unavailable Jose Alfredo, Patel Chi Primary Care Unavailable Juvenal Gonsalez D.O. Consulting Unavailable Piero, Valentín Consulting Unavailable Tereletsky, Dariusz Admitting Unavailable Jose Alfredo, Patel Chi Primary Care Unavailable Juvenal Gonsalez D.O. Consulting Unavailable Piero, Valentín Attending Unavailable Piero, Valentín Consulting Unavailable Tereletsky, Dariusz Admitting Unavailable Elana Barajas [employer] BUILDER-C Attending Unavailable Jose Alfredo, Patel Chi Primary Care Unavailable Juvenal Gonsalez D.O. Consulting Unavailable Piero, Valentín Consulting Unavailable Piero, Valentín Attending Unavailable Tereletsky, Dariusz Admitting Unavailable Jose Alfredo, Patel Chi Primary Care Unavailable Juvenal Gonsalez D.O. Consulting Unavailable Piero, Valentín Consulting Unavailable Logan Leobardo Attending Unavailable Jopperi, Thai Referring Unavailable Jose Alfredo, Patel Chi Attending Unavailable Jose Alfredo, Patel Chi Primary Care Unavailable Tank Hernandez Attending Unavailable Tereletsky, Dariusz Referring Unavailable Jose Alfredo, Patel Chi Primary Care Unavailable Sheng Melendez Attending Unavailable Jose Alfredo, Patel Chi Primary Care Unavailable Peng Pastrana Attending Unavailable Jose Alfredo, Patel Chi Primary Care Unavailable Roopa Victor Attending Unavailable BasaliGeorgiana Attending Unavailable Basali, Ayman Referring Unavailable Jose Alfredo, Patel Chi Primary Care Unavailable Jose Alfredo, Patel Chi Primary Care Unavailable White, Arielle Admitting Unavailable Tereletsky, Dariusz Attending Unavailable White, Arielle Admitting Unavailable Jose Alfredo, Patel Chi Primary Care Unavailable White, Arielle Consulting Unavailable White, Arielle Attending Unavailable White, Arielle Admitting Unavailable Tavo Patino Attending Unavailable Jose Alfredo, Patel Chi Primary Care Unavailable Tereletsky, Dariusz Consulting Unavailable Jose Alfredo, Patel Chi Primary Care Unavailable Abelardo Grant Attending Unavailable Jose Alfredo, Patel Chi Primary Care Unavailable Harley Garcia Attending Unavailable Jose Alfredo, Patel Chi Primary Care Unavailable Wayne Hi Attending Unavailable Jose Alfredo, Patel Chi Primary Care Unavailable Lukasz Coto Attending Unavailable Jose Alfredo, Patel Chi Primary Care Unavailable Peng Pastrana Attending Unavailable Jose Alfredo, Patel Chi Primary Care Unavailable Daniel Connolly Attending Unavailable Jose Alfredo, Patel Chi Primary Care Unavailable Peng Pastrana Attending Unavailable rJ Dunlap Attending Unavailable Jose Alfredo, Patel Chi Referring Unavailable Jose Alfredo, Patel Chi Primary Care Unavailable Jr Dunlpa Attending Unavailable Jose Alfredo, Patel Chi Referring Unavailable Jose Alfredo, Patel Chi Primary Care Unavailable Thai Alfaro Attending Unavailable Jose Alfredo, Patel Chi Primary Care Unavailable White, Arielle Admitting Unavailable Jopperi, Thai Attending Unavailable White, Arielle Admitting Unavailable White, Arielle Attending Unavailable Jose Alfredo, Patel Chi Primary Care Unavailable White, Arielle Consulting Unavailable White, Arielle Admitting Unavailable Jopperi, Thai Attending Unavailable Jose Alfredo, Patel Chi Primary Care Unavailable Jopperi, Thai Consulting Unavailable White, Arielle Admitting Unavailable Jopperi, Thai Attending Unavailable Jose Alfredo, Patel Chi Primary Care Unavailable Jopperi, Thai Consulting Unavailable Jose Alfredo, Patel Chi Attending Unavailable Jose Alfredo, Patel Chi Primary Care Unavailable Jose Alfredo, Patel Chi Primary Care Unavailable White, Arielle Admitting Unavailable Abelardo Waldrop Attending Unavailable White, Arielle Admitting Unavailable White, Arielle Attending Unavailable Jose Alfredo, Patel Chi Primary Care Unavailable White, Arielle Consulting Unavailable White, Arielle Admitting Unavailable Kotsonis, Abelardo F Attending Unavailable Jose Alfredo, Patel Chi Primary Care Unavailable Kotsonis, Abelardo F Consulting Unavailable White, Arielle Admitting Unavailable Kotsonis, Abelardo F Attending Unavailable Jose Alfredo, Patel Chi Primary Care Unavailable Kotsonis, Abelardo F Consulting Unavailable White, Arielle Admitting Unavailable Kotsonis, Abelardo F Attending Unavailable Jose Alfredo, Patel Chi Primary Care Unavailable Kotsonis, Abelardo F Consulting Unavailable Jose Alfredo, Patel Chi Primary Care Unavailable Roopa Victor Attending Unavailable Mary, Tank Attending Unavailable White, Arielle Referring Unavailable Jose Alfredo, Patel Chi Primary Care Unavailable Harley Garcia Attending Unavailable Saulo Moss Attending Unavailable Thai Collado Referring Unavailable Mary, Tank Attending Unavailable White, Arielle Referring Unavailable Basali, Ayman Attending Unavailable Basali, Ayman Referring Unavailable Jose Alfredo, Patel Chi Primary Care Unavailable Jose Alfredo, Patel Chi Attending Unavailable Jose Alfredo, Patel Chi Referring Unavailable Jose Alfredo, Patel Chi Primary Care Unavailable PROBLEMS PROBLEMS DATE TYPE CONDITION / CODE ATTENDING STATUS SOURCE 06/01/2018 Unknown 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, Jose Alfredo, 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, Hospital uncomplicated / Repository F13.20(ICD-10) 06/01/2018 Unknown R53.83 - Other fatigue Jose Alfredo, Patel Chi Active [facility] / R53.83(ICD-10) [facility] Repository 05/19/2018 Unknown R05 - Cough / Jose Alfredo, Patel Chi Active [facility] R05(ICD-10) [facility] Repository 05/19/2018 Unknown R50.9 - Fever, Jose Alfredo, Ptael Chi Active [facility] unspecified / Community R50.9(ICD-10) Hospital Repository 03/27/2018 Unknown N39.0 - Urinary tract Kotsonis, Active [place] infection, site not Abelardo F Community specified / Hospital N39.0(ICD-10) Repository 04/03/2018 Unknown R74.8 - Abnormal Moodispaw, Active [place] levels of other serum Saulo Community enzymes / Hospital R74.8(ICD-10) Repository 04/10/2018 Unknown R94.31 - Abnormal Mary, Tank Active [facility] electrocardiogram Community [ECG] [EKG] / Hospital R94.31(ICD-10) Repository 11/03/2017 Unknown F11.20 - Opioid Georgiana Andujar Active [facility] dependence, Community uncomplicated / Hospital F11.20(ICD-10) Repository 08/22/2017 Unknown E55.9 - Vitamin D Jose Alfredo, Patel Chi Active [place] deficiency, Community unspecified / Hospital E55.9(ICD-10) Repository 08/22/2017 Unknown I10 - Essential Jose Alfredo, Patel Chi Active [facility] (primary) hypertension Community / I10(ICD-10) Hospital Repository 08/22/2017 Unknown Z13.89 - Encounter for Jose Alfredo, Patel Chi Active [place] screening for other Community disorder / Hospital Z13.89(ICD-10) Repository 08/11/2017 Unknown J96.21 - Acute and Tim Harrysh Active [facility] chronic respiratory Community failure with hypoxia / Hospital J96.21(ICD-10) Repository 07/26/2017 Unknown G89.29 - Other chronic Piero, Valentín Active [place] pain / G89.29(ICD-10) [facility] Hospital Repository 06/24/2017 Unknown J11.1 - Influenza due Ungur, Remus Active [facility] to unidentified Community influenza virus with Hospital other respiratory Repository manifestations / J11.1(ICD-10) 06/24/2017 Unknown J45.909 - Unspecified Ungur, Remus Active [place] asthma, uncomplicated Community / J45.909(ICD-10) Hospital Repository PROCEDURES PROCEDURES No Procedure Records FoundRESULTS RESULTS CBC W/DIFF, AUTOMATED Collected: 06/01/2018 Status: F Source: [place] [facility] TYPE CODE TESTS RESULT OUT OF RANGE REFERENCE UNITS LAB L100.1000 4.4-11.0 K/mm3 Normal WBC 8.5 LAB L100.1200 4.2-5.4 M/mm3 Normal RBC 4.46 LAB L100.1300 12.0-15.0 g/dl Normal HGB 13.7 LAB L100.1400 37-47 % Normal HCT 42.4 LAB L100.1500 81-99 fL Normal MCV 95.1 LAB L100.1600 27.0-32.0 pg Normal MCH 30.7 LAB L100.1700 32-36 g/gl Normal MCHC 32.3 LAB L100.1810 11.6-14.6 % Normal RDW CV 14.2 LAB L100.1820 35.1-43.9 fl High RDW SD 48.8 LAB L100.1900 150-450 K/mm3 Normal PLT 241 LAB L100.2000 6.2-12.0 fl Normal MPV 8.8 LAB L100.2100 47-70 % Normal NEUT% 62.2 LAB L100.2200 19-41 % Normal LY% 23.0 LAB L100.2300 0-10 % High MONO% 11.2 LAB L100.2400 0-5 % Normal EO% 3.0 LAB L100.2500 0-1 % Normal BASO% 0.4 LAB L100.2550 0.0-0.9 % Normal IM GRAN % 0.200 Result Comment: IG% - Immature Granulocytes (promyelocytes, myelocytes and metamyelocytes) > 1% indicates that a LEFT SHIFT is Present. LAB L100.2620 2.0-7.7 X10 3/uL Normal Absolute Neut 5.3 LAB L100.2720 0.83-4.51 X10 3/ul Normal Absolute Lymph 1.94 Performed By: #### L100.0100 #### [facility] [address] [place], [address] COMPREHENSIVE METABOLIC Collected: 06/01/2018 Status: F Source: [facility] 4:53 PM [facility] REPOSITORY TYPE CODE TESTS RESULT OUT OF RANGE REFERENCE UNITS LAB L501.0100 74-106 mg/dL High GLU 119 Result Comment: Fasting Glucose result from 100 to 125 mg/dL suggests IMPAIRED HOMEOSTASIS per A.D.A. criteria. Please note revised GLUCOSE reference range effective 2017. LAB L501.1000 7-18 mg/dL Normal BUN 8 LAB L501.1100 0.55-1.02 mg/dL Normal CREAT,SERUM 0.58 Result Comment: The validity of the calculated GFR AND GFRAA in patients over 70 years has not been determined. Clinical correlation is essential. LAB L501.1110 >60 mL/min Normal EST GFR 109 Result Comment: Non- GFR Calc LAB L501.1115 >60 mL/min Normal EST GFR - AA 132 Result Comment: GFR Calc LAB L501.1300 10-20 RATIO Normal BUN/CRE 13.7 LAB L501.1500 6.4-8.2 g/dL T Normal PROT 6.9 LAB L501.1800 3.2-5.0 g/dL Normal ALB 3.3 LAB L501.1950 2.2-4.2 g/dL Normal GLOB 3.6 LAB L501.2000 0.9-2.4 RATIO Normal A/G 0.9 LAB L501.2200 8.5-10.1 mg/dL CA Normal 8.8 LAB L501.4100 15-37 U/L Normal AST 16 LAB L501.4305 45-117 U/L Normal ALK P 77 LAB L501.4405 13-56 U/L Normal ALT 37 LAB L501.4600 0.20-1.00 mg/dL T Normal BILI 0.20 LAB L501.5300 136-145 mmol/L NA Normal 138 LAB L501.5600 3.5-5.1 mmol/L K Normal 4.3 LAB L501.5900 98-107 mmol/L CL Normal 103 LAB L501.6100 21.0-32.0 mmol/L Normal CO2 26.0 LAB L501.6200 5-15 Normal GAP 9 Performed By: #### L500.4050, L501.9520 #### [facility] [address] [place], [place], [id number] THYROID STIM HORMONE Collected: 06/01/2018 Status: F Source: [place] ([facility]) 4:53 PM [facility] REPOSITORY TYPE CODE TESTS RESULT OUT OF RANGE REFERENCE UNITS LAB L501.9520 0.358-3.74 uIU/mL Normal TSH 1.00 Performed By: #### L500.4050, L501.9520 #### [facility] [address] [place], [place], [id number] PHENYTOIN (DILANTIN) Collected: 06/01/2018 Status: F Source: [place] L[facility]EL 4:53 PM [facility] REPOSITORY Order Comment: Time Medication is to be Given? 0800 TYPE CODE TESTS RESULT OUT OF REFERENCE UNITS RANGE LAB L501.7700 10.0-20.0 mL Low PHENYTOIN 0.9 Performed By: #### L501.7700, L501.8500 #### [facility] [address] [place], [address] PHENOBARBITAL Collected: 06/01/2018 Status: F Source: [place] 4:53 PM [facility] REPOSITORY Order Comment: Time Medication is to be Given? 0800 TYPE CODE TESTS RESULT OUT OF RANGE REFERENCE UNITS LAB L501.8500 10.0-40.0 ug/mL Normal PHENOBARB 12.4 Performed By: #### L501.7700, L501.8500 #### [facility] [address] [place], [address] Observed: 05/19/2018 Status: F Source: [place] RESPIRATORY PANEL 1:45 PM [facility] MOLECULAR REPOSITORY RP PANEL ADENOVIRUS Not Detected HUMAN METAPHNEUMO Not Detected INFLUENZA A Not Detected INFLUENZA A (SUBTYPE H1) Not Detected INFLUENZA A (SUBTYPE H3) Not Detected INFLUENZA B Not Detected PARAINFLUENZA 1 Not Detected PARAINFLUENZA 2 Not Detected PARAINFLUENZA 3 Not Detected PARAINFLUENZA 4 Not Detected RHINOVIRUS Not Detected RSV A Not Detected RSV B Not Detected NAAT METHOD Testing was performed using nucleic acid amplification Performed By: #### M100.638 #### [facility] [address], [address] CHEST PA AND LATERAL Observed: 05/19/2018 Status: F Source: [place] 1:27 PM [facility] REPOSITORY [facility] Imaging Services [address] [place] [address] Chest PA and Lateral MR#: [id number] Acct: [id number] Name: XANDER RAMIREZ Rep #: [id number] : 1950 F 67 From: Jerel Hall MD PCP: Jose Alfredo LEACH,Patel Garvey Status: REG CLI Study: Chest PA and Lateral Date of Exam: 05/19/18 Exam# [id number] Ordering Dr: Patel Veliz MD HISTORY: SOB AND COUGH WITH WEAKNESS FOR ABOUT 4 DAYS NOW. HX OF COPD. EXAM: XR Chest 2 Views: COMPARISON: 04/03/2018 and 03/29/2018 FINDINGS: No significant changes. Normal heart size. Emphysema with bilateral hyperinflation. No vascular congestion, pleural effusion, or acute pulmonary infiltration. No pneumothorax. Atherosclerotic thoracic aorta. RAD/Chest PA and Lateral IMPRESSION: 1. No acute disease or significant change. 2. Chronic lung disease with emphysema. at 0658 Reported and signed by: Jerel Hall MD Electronically Signed: Jerel Hall, at 6:56 EST Tel , Service support , CC: Patel Veliz MD Extraction Operator: Signed SPINE LUMBAR Observed: 04/26/2018 Status: F Source: [place] (ROUTINE) 3:38 PM [facility] REPOSITORY [facility] Imaging Services [address] [place] [address] Spine Lumbar (Routine) MR#: [id number] Acct: [id number] Name: XANDER RAMIREZ Rep #: [id number] : 1950 F 67 From: Dexter Zavaleta MD PCP: Patel Veliz MD, Chi Status: REG CLI Study: Spine Lumbar (Routine) Date of Exam: 04/26/18 Exam# [id number] Ordering Dr: Georgiana Andujar MD STUDY: MRI LUMBAR SPINE WITHOUT CONTRAST REASON FOR EXAM: Female, 67 years old. Low back pain and bilateral leg pain. TECHNIQUE: Standardized fat and water weighted pulse sequences were obtained in the sagittal and axial planes. COMPARISON: 08/31/2012. FINDINGS: T11-T12: (Sagittal only). Minimal anterior wedging of the superior endplates of T11 and T12 vertebral bodies may be developmental or from remote injury. They are unchanged. Normal T11 inferior endplate. Normal disc height, hydration and morphology. Normal central canal and intervertebral neural foramina. T12-L1: (Sagittal only). Normal T12 inferior endplate. Slight anterior wedging of L1 superior endplate may be developmental. Normal disc height, hydration and morphology. No ventral extradural defect. Normal central canal and intervertebral neural foramina. Normal lumbar lordosis. There is no substantial scoliosis. Normal conus medullaris that terminates at the upper L1 vertebral body level. L1-2: Normal endplates. Normal disc height, hydration and morphology. Normal bilateral facet joints. Normal central canal and bilateral lateral recesses. Normal bilateral intervertebral neural foramina. L2-3: Normal endplates. Normal disc height, hydration and morphology. Mild central canal stenosis. The AP canal diameter is 10 mm. Normal bilateral lateral recesses. Mild degenerative facet arthropathy. Normal bilateral intervertebral neural foramina. Small benign focal fatty infiltration in the upper aspect of the L2 vertebral body is confirmed on the sagittal STIR sequence. L3-4: Normal endplates. Normal disc height, hydration and morphology. No ventral extradural defect. Mild central canal stenosis. The AP canal diameter is 10 mm. Normal bilateral lateral recesses. Moderate degenerative facet arthropathy. Normal bilateral intervertebral neural foramina. L4-5: Normal endplates. Mild disc space height narrowing with mild degenerative anterolisthesis of L4 on L5. Very severe central canal stenosis with posterior ligamenta flava hypertrophy. Pronounced bilateral degenerative facet arthropathy, left greater than right. Fluid distention of the left facet joint. Severe stenosis of the bilateral lateral recesses. Mild stenosis of the bilateral intervertebral neural foramina. L5-S1: Anterior marginal spurs. Mild disc space height narrowing with mild Modic type II degenerative vertebral marrow fatty changes underneath the vertebral endplates. Moderately pronounced central canal stenosis surrounded by epidural lipomatosis. Mild degenerative facet arthropathy. Normal bilateral lateral recesses. Normal intervertebral neural foramina. Normal visualized sacral ala. Normal visualized paraspinous soft tissue structures. MRI/Spine Lumbar (Routine) IMPRESSION: 1. Very severe central canal stenosis at L4-L5 disc level, severe stenosis of the bilateral lateral recesses, mild stenosis of the intervertebral neural foramina and mild degenerative anterolisthesis of L4 on L5. 2. No MRI evidence of lumbar extruded disc fragment. 3. Moderately pronounced central canal stenosis at L5-S1 disc level surrounded by epidural lipomatosis and mild bilateral degenerative facet arthropathy. 4. Mild central canal stenosis at L2-L3 and L3-L4 disc space levels. Electronically Signed: Dexter Zavaleta MD at 15:08 EST , Service support , CC: Georgiana Andujar MD; Patel Veliz MD Extraction Operator: Signed CBC WITH PLATELET AND Collected: 04/10/2018 Status: F Source: [facility] 5:10 AM [facility] REPOSITORY TYPE CODE TESTS RESULT OUT OF REFERENCE UNITS RANGE LAB WBCIR 4.8-10.8 K/uL WBC 6.1 LAB RBC 4.20-5.40 M/uL Low RBC 3.79 LAB HGB 12.0-16.0 g/dL Hemoglobin 12.1 LAB HCT 37.0-47.0 % Low Hematocrit 35.8 LAB MCV 82.0-100.0 fL MCV 94.6 LAB MCH 27.0-31.3 pg MCH High alert 31.9 LAB MCHC 33.0-37.0 % MCHC 33.7 LAB RDW 11.5-14.5 % RDW High alert 14.7 LAB PLT 130-400 K/uL Platelet Count 183 LAB SEGR % Neutrophils 37.3 LAB LYMPR % Lymphocytes 44.4 LAB MONOR % Monocytes 10.3 LAB EOSR % Eosinophils 6.8 LAB BASOR % Basophils 1.2 LAB ASEGR 1.4-6.5 K/uL Absolute Neutrophils 2.3 LAB ALYMR 1.0-4.8 K/uL Absolute Lymphocytes 2.7 LAB AMONR 0.2-0.8 K/uL Absolute Monocytes 0.6 LAB AEOSR 0.0-0.7 K/uL Absolute Eosinophils 0.4 LAB ABASR 0.0-0.2 K/uL Absolute Basophils 0.1 BASIC METABOLIC PANEL Collected: 04/10/2018 Status: F Source: [facility] 5:10 [facility] REPOSITORY TYPE CODE TESTS RESULT OUT OF REFERENCE UNITS RANGE LAB NA 132-144 mEq/L Sodium 140 LAB K 3.5-5.1 mEq/L Potassium 4.3 LAB CL 98-107 mEq/L Chloride 102 LAB CO2 22-29 mEq/L CO2 27 LAB AGAP 7-13 mEq/L Anion Gap 11 LAB GLU 74-109 mg/dL Glucose 91 LAB BUN 8-23 mg/dL BUN 17 LAB CREA 0.50-0.90 mg/dL Creatinine 0.64 LAB GFR >60 GFR >60.0 Result Comment: >60 mL/min/1.73m2 EGFR, calc. for ages 18 and older using the MDRD formula (not corrected for weight), is valid for stable renal function. LAB GFRAA >60 eGFR >60.0 Result Comment: >60 mL/min/1.73m2 EGFR, calc. for ages 18 and older using the MDRD formula (not corrected for weight), is valid for stable renal function. LAB CA 8.6-10.2 mg/dL Low Calcium 8.2 OXCARBAZEPINE METABOLITE Collected: 04/10/2018 Status: F Source: [place] 5:10 AM [facility] REPOSITORY TYPE CODE TESTS RESULT OUT OF REFERENCE UNITS RANGE LAB 9883D 3-35 ug/mL Oxcarbazepine Metabolite 20 Result Comment: INTERPRETIVE INFORMATION: Oxcarbazepine Therapeutic range: 3-35 ug/mL. Toxic: Greater than 40 ug/mL This test measures monohydroxyoxcarbazepine (MHD). Adverse effects may include dizziness, fatigue, nausea, headache, somnolence, ataxia and tremor. Performed by [facility], [address] [place] [id number] [email or web address], Angel Correa MD - Lab. Director EMERGENCY DEPARTMENT Observed: 04/07/2018 Status: F Source: [place] SUMMARY 8:24 AM [facility] REPOSITORY [facility] Medical Records Department [address] [place] [address] Emergency Department Summary 04/02/18 2329 MR#: [id number] Acct: [id number] Name: XANDER RAMIREZ Rep #: [id number] : 1950 67 From: Thai Alfaro DO PCP: Jose Alfredo LEACH,[employer] Status: DEP ER - ER Visit Summary Date of Service: 04/02/18 Chief Complaint: Depression and suicidal gesture History of Present Illness: The patient is a 67 F who presents with suicidal gesture that occurred today. Patient was noted to have cuts over both forearms and both anterior thighs by her home health aide today. Patient states she did this to make her son mad. Patient states she has been arguing with her son recently. Patient states she also wrote a suicide note so that her son would find it and become upset. Currently patient denies any suicidal ideations to me. Police wrote a pink slip and noted that the patient also wrote a last will and testament. Physical Examination: Vital signs are stable. Patient is afebrile. Patient is in no acute distress. Oral mucosa is pink and moist. Neck is supple. Trachea is midline. There is no JVD noted. Heart was regular rate and rhythm. Lungs are clear and equal bilaterally. Abdomen is soft. Bowel sounds are normal. There is no tenderness. Cranial nerves II through XII are intact. Strength is 5/5 bilateral in the upper and lower extremities. There are no sensory deficits noted. Skin is warm and dry. There are multiple superficial linear abrasions noted over the dorsal aspect of the forearms bilaterally as well as over the anterior aspect of the thighs bilaterally. There is no active bleeding noted. There is no erythema noted. Patient has not irritable mood and blunted affect. Patient does have suicidal thoughts. The remaining physical exam is within normal limits. Test Results: EKG showed normal sinus rhythm with a rate of 93. There are no acute ST or T wave changes. This was unchanged compared to previous EKG dated 03/07/2018. CT scan of the brain was obtained. There is no acute intracranial abnormality noted. CBC, comprehensive metabolic profile, and urinalysis were obtained were all within normal limits. Urine tox screen was positive for benzodiazepines and barbiturates. Serum alcohol level was normal. Emergency Department Course and Treatment: He was given doses of Ativan and morphine here. Case was discussed with crisis center. They were in to evaluate the patient. Currently they are trying to find a place for admission. Disposition: Transferred to the psychiatric facility Impression: Suicidal gesture This note was generated with Youxinp[employer] software. It may contain incorrect words, spelling, and punctuation that were not noted in review of the chart prior to signing <Thai Alfaro - Last Filed: 04/02/18 23:29> - ER Visit Summary Date of Service: 04/03/18 Chief Complaint: [] History of Present Illness: The patient is a 67 F [] Physical Examination: [] Test Results: [] Emergency Department Course and Treatment: [] Treatment Plan: Patient was evaluated by crisis. Patient will be transferred to [facility]. Disposition: [] Impression: [] This note was generated with Youxinpai software. It may contain incorrect words, spelling, and punctuation that were not noted in review of the chart prior to signing <Harley Garcia - Last Filed: 04/03/18 09:55> ED Disposition <Thai Alfaro - Last Filed: 04/02/18 23:29> <Harley Garcia - Last Filed: 04/03/18 09:55> - Plan for ED Patient: Chief Complaint: Suicidal Diagnosis: Suicide gesture Referrals: Patel Veliz Chi, MD [Primary Care Provider] - What to do if you have Problems For any increased pain, shortness of breath, bleeding, nausea or vomiting, chest pain, or any unexpected problems, contact your Primary Care Provider. Call [facility] ([phone]) or report to the closest Emergency Room. Call 911 if necessary. 04/07/18 0824 <Electronically signed by Thai Alfaro DO> Date Thai Alfaro DO 04/03/18 0955<Electronically signed by Harley Garcia MD> Cosigner Signature (If Indicated): Date Harley Garcia MD CC: Patel Veliz MD 12 LEAD ELECTROCARDIOGRAM Observed: 04/06/2018 Status: F Source: [place] 11:12 AM [facility] REPOSITORY [facility] Cardiovascular Services [address] [place] [address] 12 Lead EKG 04/02/18 1859 MR#: [id number] Acct: [id number] Name: XANDER RAMIREZ Rep #: [id number] : 1950 67 From: Saulo Moss MD Attending Dr: Status: DEP ER Ordering Dr: Thai Alfaro DO Date: 04/02/18 Location: ED Sex: F C Admitted: Test Reason : MHC Blood Pressure : / mmHG Vent. Rate : 093 BPM Atrial Rate : 093 BPM P-R Int : 166 ms QRS Dur : 066 ms QT Int : 342 ms P-R-T Axes : 069 031 029 degrees QTc Int : 425 ms Normal sinus rhythm Low voltage QRS Septal infarct , age undetermined Abnormal ECG Confirmed by JAMES LEACH, SAULO ([id number]), web content editor GOPI RAMIREZ ([id number]) on 04/06/2018 11:11:41 AM Referred By: KARYNA Confirmed By:SAULO MOSS MD 04/06/18 1111 Date Saulo Moss MD CC: Thai Alfaro DO; Harley Garcia MD; Patel Veliz MD Signed PHENOBARBITAL LEVEL Collected: 04/04/2018 Status: F Source: [facility] 5:50 AM [facility] REPOSITORY TYPE CODE TESTS RESULT OUT OF REFERENCE UNITS RANGE LAB PHENB 10.0-30.0 ug/mL Phenobarbital 13.1 PHENYTOIN LEVEL Collected: 04/04/2018 Status: F Source: [facility] 5:50 AM [facility] REPOSITORY TYPE CODE TESTS RESULT OUT OF REFERENCE UNITS RANGE LAB PTN1 10.0-20.0 ug/mL Low Phenytoin 3.9 LIPID PANEL Collected: 04/04/2018 Status: F Source: [facility] 5:44 AM [facility] REPOSITORY TYPE CODE TESTS RESULT OUT OF REFERENCE UNITS RANGE LAB CHOL 0-199 mg/dL Cholesterol 158 Result Comment: ATP III Cholesterol classification is Desirable. LAB TRIG 0-200 mg/dL Triglycerides 126 Result Comment: ATP III Triglycerides Classification is Normal. LAB HDL 40-59 mg/dL HDL Cholesterol 59 Result Comment: ATP III HDL Cholesterol Classification is Desirable. Expected Values: Males: >55 = No Risk 35-55 = Moderate Risk <35 = High Risk Females: >65 = No Risk 45-65 = Moderate Risk <45 = High Risk NCEP Guidelines: Third Report October 2000 >59 = negative risk factor for CHD <40 = major risk factor for CHD LAB LDLC 0-129 mg/dL LDL Cholesterol (Calculated) 74 Result Comment: ATP III LDL Classification is Optimal. T3 TOTAL Collected: 04/04/2018 Status: F Source: [facility] 5:44 AM [facility] REPOSITORY TYPE CODE TESTS RESULT OUT OF RANGE REFERENCE UNITS LAB T3 0.80-2.00 ng/mL T3 Total 1.00 THYROXINE (T4) Collected: 04/04/2018 Status: F Source: [facility] 5:44 AM [facility] REPOSITORY TYPE CODE TESTS RESULT OUT OF REFERENCE UNITS RANGE LAB T4 4.5-11.7 ug/dL Thyroxine (T4) 5.1 TSH W/OUT REFLEX Collected: 04/04/2018 Status: F Source: [facility] 5:44 AM [facility] REPOSITORY TYPE CODE TESTS RESULT OUT OF REFERENCE UNITS RANGE LAB TSH 0.270-4.20 uIU/mL TSH w/out 1.040 Reflex VITAMIN D Collected: 04/04/2018 Status: F Source: [facility] 5:44 AM [facility] REPOSITORY TYPE CODE TESTS RESULT OUT OF REFERENCE UNITS RANGE LAB VITD 30.0-100.0 ng/mL Low VITAMIN D 18.2 Result Comment: (<20 ng/mL) Deficiency This assay accurately quantifies the sum of vitamin D3, 25- Hydroxy and vitamin D2, 25-Hyroxy. 12 LEAD ELECTROCARDIOGRAM Observed: 04/03/2018 Status: F Source: [place] 3:40 PM [facility] REPOSITORY [facility] Cardiovascular Services [address] [place] [address] 12 Lead EKG 03/29/18 1830 MR#: [id number] Acct: [id number] Name: XANDER RAMIREZ Rep #: [id number] : 1950 67 From: Tank Hernandez MD Attending Dr: Status: DEP ER Ordering Dr: Roopa Victor MD Date: 03/29/18 Location: ED Sex: F C Admitted: Test Reason : SEIZURE Blood Pressure : / mmHG Vent. Rate : 092 BPM Atrial Rate : 092 BPM P-R Int : 158 ms QRS Dur : 086 ms QT Int : 356 ms P-R-T Axes : 071 052 053 degrees QTc Int : 440 ms Normal sinus rhythm Normal ECG Confirmed by TANK HERNANDEZ MD ([id number]), web content editor GOPI RAMIREZ ([id number]) on 04/03/2018 3:40:17 PM Referred By: VITO Confirmed By:TANK HERNANDEZ MD 04/03/18 1540 Date Tank Hernandez MD CC: Roopa Victor MD; Patel Veliz MD Signed CHEST 1 VIEW Observed: 04/03/2018 Status: F Source: [place] (PORTABLE) 4:20 AM [facility] REPOSITORY [facility] Imaging Services [address] [place] [address] Chest 1 View (Portable) MR#: [id number] Acct: [id number] Name: XANDER RAMIREZ Rep #: [id number] : 1950 F 67 From: Merrick Tidwell MD PCP: Patel Veliz MD, Chi Status: REG ER Study: Chest 1 View (Portable) Date of Exam: 04/03/18 Exam# [id number] Ordering Dr: Ang Bhatt MD STUDY: X-RAY CHEST REASON FOR EXAM: Female, 67 years old. COPD TECHNIQUE: Single frontal view of the chest. COMPARISON: None. FINDINGS: The lungs are clear and expanded. There is no demonstrated pleural abnormality. Normal size heart. Normal mediastinum and denae. Normal visualized pulmonary arteries. Normal visualized aortic arch and descending thoracic aorta. Normal visualized thoracic spine. There is degenerative osteoarthritis of the bilateral shoulders. There is no demonstrated abnormality of the visualized soft tissue structures of the upper abdomen. RAD/Chest 1 View (Portable) IMPRESSION: No acute pulmonary findings. Electronically Signed: Merrick Tidwell MD at 4:43 EDT Tel , Service support , CC: ANG BHATT MD; Patel Veliz MD Extraction Operator: Signed URINE DRUG SCREEN Collected: 04/02/2018 Status: F Source: [place] (VISTA) 7:10 PM [facility] REPOSITORY TYPE CODE TESTS RESULT OUT OF RANGE REFERENCE UNITS LAB L505.0075 TO BE Normal CONFIRMED Result Comment: CONFIRMATORY TESTING FOR ALL POSITIVE URINE DRUG SCREEN RESULTS WILL ONLY BE SENT OUT UPON PHYSICIAN ORDER. VISTA Urine Drug Screen methods provide only preliminary analytical test results. A more specific alternate chemical method must be used in order to obtain a confirmed analytical result. Gas chromatography/mass spectrometery (GC/MS) is the preferred confirmatory method. Clinical consideration and professional judgement should be applied to any drug of abuse test result, particularly when preliminary positive results are used. URINE TCA TESTING MUST BE ORDERED SEPARATELY. USE TEST MNEMONIC: [facility] LAB L505.5005 VISTA UDS PH 6 Normal LAB L505.5015 <1000 ng/mL AMPHETAMINES Normal NEGATIVE LAB L505.5025 < 200 High ng/mL BARBITIURATES POSITIVE LAB L505.5035 < 200 High ng/mL BENZODIAZIPINE POSITIVE LAB L505.5045 < 300 ng/mL COCAINE Normal NEGATIVE LAB L505.5055 < 500 ng/mL ECSTACY Normal NEGATIVE LAB L505.5065 < 300 ng/mL METHADONE Normal NEGATIVE LAB L505.5075 < 300 ng/mL OPIATES Normal NEGATIVE LAB L505.5085 < 25 ng/mL PCP Normal NEGATIVE LAB L505.5095 < 50 ng/mL THC Normal NEGATIVE Performed By: #### L505.5000 #### [facility] [address] [place], [place], [address] URINALYSIS, COMPLETE Collected: 04/02/2018 Status: F Source: [place] 7:10 PM [facility] REPOSITORY Order Comment: How was Urine Obtained? JORDAN WORKER TO SPECIFY TYPE CODE TESTS RESULT OUT OF RANGE REFERENCE UNITS LAB L400.3000 Yellow COLOR Normal Yellow LAB L400.3050 Clear Normal CLARITY Clear LAB L400.3200 Normal mg/dl Normal GLUCOSE, UR Normal LAB L400.3300 Negative mg/dL High BILIRUBIN URINE 1 Result Comment: COLOR OF URINE MAY AFFECT DIPSTICK RESULTS. LAB L400.3400 Negative mg/dl Normal KETONE UR Negative LAB L400.3465 1.002-1.030 Normal SP.GR. DIPSTX 1.010 LAB L400.3550 5.0 - 8.0 pH Normal UR 8.0 LAB L400.3600 Negative mg/dl Normal PROT DIPSTX Negative LAB L400.3700 Normal mg/dl Normal UROBILI Normal LAB L400.3750 Negative Normal NITRITE UR Negative LAB L400.3780 Negative /ul Normal OCCULT Negative BLOOD-UR LAB L400.3800 Negative /ul Normal LEUK ESTERASE Negative LAB L400.4050 0-5 /hpf Normal WBC 0 SEEN LAB L400.4100 0-5 /hpf Normal RBC-UA 0 SEEN LAB L400.4150 5-10 /hpf Normal SQUAM EPI 0-5 SEEN LAB L400.4300 None Seen /hpf Normal BACTERIA 0 SEEN LAB L400.4350 <or=2+ /hpf Normal MUCUS, URINE 0 SEEN Performed By: #### L400.0001 #### [facility] [address] [facility] [place], [address] BRAIN/HEAD WITHOUT Observed: 04/02/2018 Status: F Source: [place] CONTRAST 6:31 PM [facility] REPOSITORY [facility] Imaging Services [address] [place] [address] Brain/Head without Contrast MR#: [id number] Acct: [id number] Name: XANDER RAMIREZ Rep #: [id number] : 1950 F 67 From: Gabby Medina MD PCP: Jose Alfredo LEACH,[employer]Placement Status: REG ER Study: Brain/Head without Contrast Date of Exam: 04/02/18 Exam# [id number] Ordering Dr: Thai Alfaro DO STUDY: CT BRAIN WITHOUT CONTRAST REASON FOR EXAM: Female, 67 years old. Found with superficial cuts on legs and arms. LOC. Seizures. RADIATION DOSAGE (If Supplied By Facility): CTDIvol = ( 44.99 ) mGy, DLP = ( 796.11 ) mGycm TECHNIQUE: Transaxial CT imaging of the brain was performed without administration of intravenous contrast material. Individualized dose optimization techniques were used for this CT. COMPARISON: 03/29/2018. FINDINGS: Normal soft tissue structures. Normal calvarium. Normal size ventricles and extra-axial spaces for the patient's age. There are areas of decreased attenuation within the white matter tracts of the supratentorial brain, consistent with microvascular disease changes. Normal basal ganglia and thalami. Normal brainstem. Normal cerebellum. There is no intracranial hemorrhage. There are no findings of an acute ischemic infarction. Normal visualized paranasal sinuses. CT/Brain/Head without Contrast IMPRESSION: 1. No acute process. 2. Mild microvascular ischemic changes. Electronically Signed: Gabby Medina MD at 20:17 EDT Tel , Service support , CC: Thai Alfaro DO; Patel Veliz MD Extraction Operator: Signed CBC W/DIFF, AUTOMATED Collected: 04/02/2018 Status: F Source: [place] 6:00 PM [facility] REPOSITORY TYPE CODE TESTS RESULT OUT OF RANGE REFERENCE UNITS LAB L100.1000 4.4-11.0 K/mm3 Normal WBC 5.9 LAB L100.1200 4.2-5.4 M/mm3 Normal RBC 4.43 LAB L100.1300 12.0-15.0 g/dl Normal HGB 13.4 LAB L100.1400 37-47 % Normal HCT 42.3 LAB L100.1500 81-99 fL Normal MCV 95.5 LAB L100.1600 27.0-32.0 pg Normal MCH 30.2 LAB L100.1700 32-36 g/gl Low MCHC 31.7 LAB L100.1810 11.6-14.6 % Normal RDW CV 14.4 LAB L100.1820 35.1-43.9 fl High RDW SD 50.7 LAB L100.1900 150-450 K/mm3 Normal PLT 227 LAB L100.2000 6.2-12.0 fl Normal MPV 10.3 LAB L100.2100 47-70 % Normal NEUT% 47.8 LAB L100.2200 19-41 % High LY% 41.1 LAB L100.2300 0-10 % Normal MONO% 8.2 LAB L100.2400 0-5 % Normal EO% 2.4 LAB L100.2500 0-1 % Normal BASO% 0.3 LAB L100.2550 0.0-0.9 % Normal IM GRAN % 0.200 Result Comment: IG% - Immature Granulocytes (promyelocytes, myelocytes and metamyelocytes) > 1% indicates that a LEFT SHIFT is Present. LAB L100.2620 2.0-7.7 X10 3/uL Normal Absolute Neut 2.8 LAB L100.2720 0.83-4.51 X10 3/ul Normal Absolute Lymph 2.41 Performed By: #### L100.0100 #### [facility] [address] [facility] [place], [address] ALCOHOL, BLOOD Collected: 04/02/2018 Status: F Source: [place] (MEDICAL)-SERUM 6:00 PM [facility] REPOSITORY TYPE CODE TESTS RESULT OUT OF RANGE REFERENCE UNITS LAB L501.9100 mg/dL Normal SERUM < 3.0 ETOH Result Comment: The serum:whole blood ethanol ratio is approximately 1.14 and varies slightly with hematocrit. Medical Alcohol reference interval and critical value in non-tolerant individuals; 50 - 100 Impairment 100 Intoxication 100 - 250 Severe Poisoning 250 - 400 Deep/possible fatal coma Performed By: #### L501.9100 #### [facility] [address] [facility] [place], [address] COMPREHENSIVE METABOLIC Collected: 04/02/2018 Status: F Source: [place] PROFIL 6:00 PM [facility] REPOSITORY TYPE CODE TESTS RESULT OUT OF RANGE REFERENCE UNITS LAB L501.0100 74-106 mg/dL Normal GLU 88 Result Comment: Please note revised GLUCOSE reference range effective 2017. LAB L501.1000 7-18 mg/dL Normal BUN 10 LAB L501.1100 0.55-1.02 mg/dL Normal CREAT,SERUM 0.59 Result Comment: The validity of the calculated GFR AND GFRAA in patients over 70 years has not been determined. Clinical correlation is essential. LAB L501.1110 >60 mL/min Normal EST GFR 107 Result Comment: Non- GFR Calc LAB L501.1115 >60 mL/min Normal EST GFR - AA 129 Result Comment: GFR Calc LAB L501.1255 ml/min Normal Estimated CRCL 48.45 LAB L501.1300 10-20 RATIO Normal BUN/CRE 16.8 LAB L501.1500 6.4-8. g/dL Normal 2 T PROT 7.1 LAB L501.1800 3.2-5. g/dL Normal 0 ALB 3.2 LAB L501.1950 2.2-4. g/dL Normal 2 GLOB 3.9 LAB L501.2000 0.9-2. RATIO Low 4 A/G 0.8 LAB L501.2200 8.5-10 mg/dL Low .1 CA 8.4 LAB L501.4100 15-37 U/L Normal AST 22 Result Comment: Moderate Hemolysis, Result may be falsely increased. LAB L501.4305 45-117 U/L Normal ALK P 83 LAB L501.4405 13-56 U/L Normal ALT 22 LAB L501.4600 0.20-1.00 mg/dL Normal T BILI 0.30 LAB L501.5300 136-145 mmol/L Normal NA 142 LAB L501.5600 3.5-5.1 mmol/L Normal K 4.0 Result Comment: Moderate Hemolysis, Result may be falsely increased. LAB L501.5900 98-107 mmol/L High CL 108 LAB L501.6100 21.0-32.0 mmol/L Normal CO2 29.0 LAB L501.6200 5-15 Normal 5 GAP Performed By: #### L500.4050, L501.9520 #### [facility] [address] [facility]. [place], [place], [id number] THYROID STIM HORMONE Collected: 04/02/2018 Status: F Source: [place] (TSH) 6:00 PM [facility] REPOSITORY TYPE CODE TESTS RESULT OUT OF RANGE REFERENCE UNITS LAB L501.9520 0.358-3.74 uIU/mL Normal TSH 0.69 Performed By: #### L500.4050, L501.9520 #### [facility] [address] [place], [address] BEDSIDE GLUCOSE Collected: 04/02/2018 Status: F Source: [place] 5:50 PM [facility] REPOSITORY TYPE CODE TESTS RESULT OUT OF RANGE REFERENCE UNITS LAB L501.080 70-110 mg/dL Normal BEDSIDE GLU 81 Result Comment: MANAGEMENT OF PATIENT CARE PER NURSING PROTOCOL Performed By: #### L501.080 #### [facility] Point of Care [address] [facility]. [place], [place] [id number] EMERGENCY DEPARTMENT Observed: 03/30/2018 Status: F Source: [place] SUMMARY 12:56 AM [facility] REPOSITORY [facility] Medical Records Department [address] [place] [address] Emergency Department Summary 03/29/18 1808 MR#: [id number] Acct: [id number] Name: XANDER RAMIREZ Rep #: [id number] : 1950 67 From: Roopa Victor MD PCP: Jose Alfredo LEACH,Patel Garvey Status: DEP ER - ER Visit Summary Date of Service: 03/29/18 Chief Complaint: Abdominal pain, loss of consciousness History of Present Illness: The patient is a 67 F with history of seizure disorder who was found unconscious on her floor at home by her health aide. Patient does not remember what happened but was found unconscious. Patient denies any urinary incontinence or biting her tongue. She does not know if she had a seizure. She states for the last 3 days she has been having right lower abdominal pain prior to urination with associated dysuria. She has a history of prior urinary infections. She has been compliant with all her medications for seizures. She denies fever, chest pain, shortness of breath, nausea. She has been vomiting yesterday and is constipated. She is not currently having any neck pain or head pain but does not know if she hit her head. Patient is status post appendectomy and cholecystectomy. Physical Examination: Vital signs: afebrile, hemodynamically stable, no hypoxia on room air General: well nourished, well developed, in no distress Skin: warm, dry, no rash, no pallor HEENT: normocephalic and atraumatic, no tenderness; PERRL, EOMI, moist mucous membranes, no maxillofacial trauma, no tongue lesions Cardiovascular: regular rate and rhythm without murmurs, no peripheral edema, 2+ pulses all distal extremities Respiratory: No increased work of breathing, lungs are diffusely diminished Abdominal: Abdomen is soft, right lower quadrant is tender with normoactive bowel sounds, no guarding or rebound, no masses MSK: Moves all extremities, no deformities, normal strength Neuro: Awake and alert, oriented 4. No facial droop, sensation and motor function intact and symmetric Test Results: Abnormal Lab Results WBC 8.4 RBC 4.53 Hgb 13.9 Hct 43.4 MCV 95.8 MCH 30.7 MCHC 32.0 RDW 14.7 H RDW Differential 51.7 H Clinical Impression(s) from Imaging Studies Brain CT 03/29/18 18:06 IMPRESSION: Mild atrophy and periventricular white matter ischemic changes. No evidence for acute bleed. If concern for acute infarct MRI recommended.. Electronically Signed: Sheng Crawford MD at 20:00 EDT , Service support , Chest X-Ray 03/29/18 18:06 IMPRESSION: No acute cardiopulmonary pathology Electronically Signed: Sheng Crawford MD at 19:00 EDT , Service support , Medications Given Discontinued Medications Sodium Chloride () 500 mls @ 1,000 mls/hr IV .Q30M CHEN Stop: 03/29/18 18:44 Last Admin: 03/29/18 20:30 Dose: 1,000 mls/hr Morphine Sulfate () 4 mg SC X1 ONE Stop: 03/29/18 20:51 Last Admin: 03/29/18 20:55 Dose: 4 mg Ondansetron HCl (Zofran Odt) 4 mg PO X1 ONE Stop: 03/29/18 20:53 Last Admin: 03/29/18 20:52 Dose: 4 mg Emergency Department Course and Treatment: Patient presents after an unwitnessed loss of consciousness, and it is unclear whether it was a seizure. Because it was unwitnessed and she may have hit her head, CT of the head was performed. Patient is also having intermittent abdominal pain, worse prior to urination, thus workup was performed to look for UTI or other source of patient's complaints. Patient CT head showed no intracranial hemorrhage. CBC showed no leukocytosis or anemia. CMP showed no hepatic, renal or electrolyte derangements. Lipase normal. Troponin negative. Lactate normal at 1.4. EKG showed sinus rhythm without ischemia or ectopy. Chest x-ray showed no acute process. Patient was given morphine and Zofran for symptomatic relief and also received normal saline for hydration. Patient's urine was delayed, and patient began stating she wanted to go home. Because her main complaint was abdominal pain with urination, she was willing to stay and eventually gave a urine sample. It showed no signs of hematuria or pyuria. Culture is pending. I discussed with patient that her abdominal complaint had not been resolved, and a CT abdomen and pelvis might be helpful in eliciting the cause of her abdominal pain. Because her abdominal pain is related to urination and is intermittent, I have low suspicion that this is an abdominal aneurysm or dissection. Patient did not want to stay any longer and declined any further workup, including the abdominal CT. Patient was encouraged to come back if she has any concerns. No alternate cause of patient's brief episode of unresponsiveness that was unwitnessed at home was noted. I suspect patient may have had a breakthrough seizure. She will return if any worsening of her condition. Patient discharged home in improved condition. Treatment Plan: [] Disposition: [] Impression: Acute seizure, lower abdominal pain, dysuria This note was generated with [employer] dictation software. It may contain incorrect words, spelling, and punctuation that were not noted in review of the chart prior to signing ED Disposition - Plan for ED Patient: Disposition: Home or Assisted Living Chief Complaint: Seizure Instructions: ED Abdominal Pain Unkn Cause, ED Seizure Recurrent Referrals: Patel Veliz Chi, MD [Primary Care Provider] - 1-2 Days if not improving Additional Instructions: Please follow-up with your doctor within 1-2 days for another evaluation, especially since you had the episode of possible seizure versus passing out. Your lab work and urine showed no signs of a urine infection. If you would like further workup of your abdominal pain, please return emergency department. Use your medications for pain as prescribed by your doctor. If you have any worsening of your condition or any new concerning symptoms, please return immediately to the emergency department for another evaluation. What to do if you have Problems For any increased pain, shortness of breath, bleeding, nausea or vomiting, chest pain, or any unexpected problems, contact your Primary Care Provider. Call [facility] ([phone]) or report to the closest Emergency Room. Call 911 if necessary. 03/30/18 0056 <Electronically signed by Roopa Victor MD> Date Roopa Victor MD Cosigner Signature (If Indicated): Date CC: Patel Veliz MD DISCHARGE INSTRUCTION Observed: 03/30/2018 Status: F Source: [place] 12:20 AM [facility] REPOSITORY [facility] Medical Records Department [address] [place] [address] Discharge Instruction 03/29/182229 MR#: [id number] Acct: [id number] Name: XANDER RAMIREZ Rep #: [id number] : 1950 67 From: Roopa Victor MD PCP: Patel Veliz MD, Chi Status: DEP ER ED Disposition - Plan for ED Patient: Disposition: Home or Assisted Living Chief Complaint: Seizure Instructions: ED Seizure Recurrent, ED Abdominal Pain Unkn Cause Referrals: Patel Veliz Chi, MD [Primary Care Provider] - 1-2 Days if not improving Additional Instructions: Please follow-up with your doctor within 1-2 days for another evaluation, especially since you had the episode of possible seizure versus passing out. Your lab work and urine showed no signs of a urine infection. If you would like further workup of your abdominal pain, please return emergency department. Use your medications for pain as prescribed by your doctor. If you have any worsening of your condition or any new concerning symptoms, please return immediately to the emergency department for another evaluation. What to do if you have Problems For any increased pain, shortness of breath, bleeding, nausea or vomiting, chest pain, or any unexpected problems, contact your Primary Care Provider. Call [facility] ([phone]) or report to the closest Emergency Room. Call 911 if necessary. 03/30/18 0020 <Electronically signed by Roopa Victor MD> Date Roopa Victor MD Cosigner Signature (If Indicated): Date CC: Patel Veliz MD URINALYSIS, COMPLETE Collected: 03/29/2018 Status: F Source: [place] 9:14 PM [facility] REPOSITORY Order Comment: Order Date: 03/29/18 How was Urine Obtained? CLEAN CATCH TYPE CODE TESTS RESULT OUT OF RANGE REFERENCE UNITS LAB L400.3000 Yellow COLOR Normal Yellow LAB L400.3050 Clear Normal CLARITY Clear LAB L400.3200 Normal mg/dl Normal GLUCOSE, UR Normal LAB L400.3300 Negative mg/dL Normal BILIRUBIN URINE Negative LAB L400.3400 Negative mg/dl Normal KETONE UR Negative LAB L400.3465 1.002-1.030 Normal SP.GR. DIPSTX 1.010 LAB L400.3550 5.0 - 8.0 pH UR Normal 8.0 LAB L400.3600 Negative mg/dl PROT Normal DIPSTX Negative LAB L400.3700 Normal mg/dl Normal UROBILI Normal LAB L400.3750 Negative Normal NITRITE UR Negative LAB L400.3780 Negative /ul Normal OCCULT BLOOD-UR Negative LAB L400.3800 Negative /ul LEUK Normal ESTERASE Negative LAB L400.4050 0-5 /hpf WBC 0 Normal SEEN LAB L400.4100 0-5 /hpf 0 Normal RBC-UA SEEN LAB L400.4150 5-10 /hpf SQUAM Normal EPI 0-5 SEEN LAB L400.4300 None Seen /hpf 0 Normal BACTERIA SEEN LAB L400.4350 <or=2+ /hpf 0 Normal MUCUS, URINE SEEN Performed By: #### L400.0001 #### [facility] [address] [place], [address] CBC W/DIFF, AUTOMATED Collected: 03/29/2018 Status: F Source: [place] 7:05 PM [facility] REPOSITORY TYPE CODE TESTS RESULT OUT OF RANGE REFERENCE UNITS LAB L100.1000 4.4-11.0 K/mm3 Normal WBC 8.4 LAB L100.1200 4.2-5.4 M/mm3 Normal RBC 4.53 LAB L100.1300 12.0-15.0 g/dl Normal HGB 13.9 LAB L100.1400 37-47 % Normal HCT 43.4 LAB L100.1500 81-99 fL Normal MCV 95.8 LAB L100.1600 27.0-32.0 pg Normal MCH 30.7 LAB L100.1700 32-36 g/gl Normal MCHC 32.0 LAB L100.1810 11.6-14.6 % High RDW CV 14.7 LAB L100.1820 35.1-43.9 fl High RDW SD 51.7 LAB L100.1900 150-450 K/mm3 Normal PLT 241 LAB L100.2000 6.2-12.0 fl Normal MPV 10.0 LAB L100.2100 47-70 % Normal NEUT% 61.7 LAB L100.2200 19-41 % Normal LY% 25.7 LAB L100.2300 0-10 % Normal MONO% 7.5 LAB L100.2400 0-5 % Normal EO% 4.5 LAB L100.2500 0-1 % Normal BASO% 0.5 LAB L100.2550 0.0-0.9 % Normal IM GRAN % 0.100 Result Comment: IG% - Immature Granulocytes (promyelocytes, myelocytes and metamyelocytes) > 1% indicates that a LEFT SHIFT is Present. LAB L100.2620 2.0-7.7 X10 3/uL Normal Absolute Neut 5.2 LAB L100.2720 0.83-4.51 X10 3/ul Normal Absolute Lymph 2.15 Performed By: #### L100.0100 #### [facility] [address] [place] [address], [id number] PROTHROMBIN TIME W/INR Collected: 03/29/2018 Status: F Source: [place] 7:05 PM [facility] REPOSITORY TYPE CODE TESTS RESULT OUT OF RANGE REFERENCE UNITS LAB L300.4150 11.7-14.9 SECONDS Normal PROTIME 12.9 LAB L300.4200 Normal INR 1.0 Performed By: #### L300.3900, L300.4310 #### [facility] [address] [place], [address] PARTIAL THROMBOPLAST Collected: 03/29/2018 Status: F Source: [place] TIME 7:05 PM [facility] REPOSITORY TYPE CODE TESTS RESULT OUT OF REFERENCE UNITS RANGE LAB L300.4310 24.1-36.2 Seconds Low PTT 21.0 Performed By: #### L300.3900, L300.4310 #### [facility] [address] [place], [address] COMPREHENSIVE METABOLIC Collected: 03/29/2018 Status: F Source: [place] [facility] 7:05 PM [facility] REPOSITORY TYPE CODE TESTS RESULT OUT OF RANGE REFERENCE UNITS LAB L501.0100 74-106 mg/dL Normal GLU 106 Result Comment: Fasting Glucose result from 100 to 125 mg/dL suggests IMPAIRED HOMEOSTASIS per A.D.A. criteria. Please note revised GLUCOSE reference range effective 2017. LAB L501.1000 7-18 mg/dL Normal BUN 13 LAB L501.1100 0.55-1.02 mg/dL Normal CREAT,SERUM 0.66 Result Comment: The validity of the calculated GFR AND GFRAA in patients over 70 years has not been determined. Clinical correlation is essential. LAB L501.1110 >60 mL/min Normal EST GFR 95 Result Comment: Non- GFR Calc LAB L501.1115 >60 mL/min Normal EST GFR - AA 115 Result Comment: GFR Calc LAB L501.1255 ml/min Normal Estimated CRCL 48.45 LAB L501.1300 10-20 RATIO Normal BUN/CRE 19.8 LAB L501.1500 6.4-8. g/dL Normal 2 T PROT 7.7 LAB L501.1800 3.2-5. g/dL Normal 0 ALB 3.3 LAB L501.1950 2.2-4. g/dL High 2 GLOB 4.4 LAB L501.2000 0.9-2. RATIO Low 4 A/G 0.8 LAB L501.2200 8.5-10 mg/dL Normal .1 CA 8.7 LAB L501.4100 15-37 U/L Normal AST 29 Result Comment: Moderate Hemolysis, Result may be falsely increased. LAB L501.4305 45-117 U/L Normal ALK P 82 LAB L501.4405 13-56 U/L Normal ALT 37 LAB L501.4600 0.20-1.00 mg/dL Normal T BILI 0.20 LAB L501.5300 136-145 mmol/L Normal NA 142 LAB L501.5600 3.5-5.1 mmol/L Normal K 4.0 Result Comment: Moderate Hemolysis, Result may be falsely increased. LAB L501.5900 98-107 mmol/L Normal CL 106 LAB L501.6100 21.0-32.0 mmol/L Normal CO2 30.0 LAB L501.6200 5-15 Normal 6 GAP Performed By: #### L500.4050, L501.2450, L501.4010 #### [facility] [address] [place], [address] LIPASE Collected: 03/29/2018 Status: F Source: [place] 7:05 [facility] REPOSITORY TYPE CODE TESTS RESULT OUT OF RANGE REFERENCE UNITS LAB L501.2450 73-393 U/L Normal LIPASE 91 Performed By: #### L500.4050, L501.2450, L501.4010 #### [facility] [address] [place], [place], [id number] TROPONIN-I Collected: 03/29/2018 Status: F Source: [place] 7:05 [facility] REPOSITORY TYPE CODE TESTS RESULT OUT OF RANGE REFERENCE UNITS LAB L501.4010 <0.045 ng/mL Normal < 0.015 TROPONIN-I Result Comment: TROPONIN-I EXPECTED VALUES <0.045 Negative 0.045 - 0.590 Consistent with Cardiac Damage > OR = 0.600 Critical Value Not every elevated troponin is indicative of DE. These values should be used with clinical judgement in examining the patient's clinical picture for diagnosis. To establish a diagnosis of DE versus myocardial injury, there must be a demonstrated rise and/or fall in the troponin values, in addition to ischemic symptoms, EKG changes, new regional wall motion abnormality, and/or angiographical evidence. PLEASE NOTE: REFERENCE RANGES EDITED 17 Performed By: #### L500.4050, L501.2450, L501.4010 #### [facility] [address] [place], [place], [address] LACTIC ACID Collected: 03/29/2018 Status: F Source: [place] 7:05 [facility] REPOSITORY Order Comment: Yes/No query for Sepsis Lactate Rule Y TYPE CODE TESTS RESULT OUT OF RANGE REFERENCE UNITS LAB L503.6005 0.4-2.0 mmol/L Normal LACTIC ACID 1.4 Performed By: #### L503.6005 #### [facility] [address] [place], [address] CHEST 1 VIEW Observed: 03/29/2018 Status: F Source: [place] (PORTABLE) 6:08 PM [facility] REPOSITORY [facility] Imaging Services [address] [place] [address] Chest 1 View (Portable) MR#: [id number] Acct: [id number] Name: XANDER RAMIREZ Rep #: [id number] : 1950 F 67 From: Sheng Crawford MD PCP: Patel Veliz MD, Chi Status: REG ER Study: Chest 1 View (Portable) Date of Exam: 03/29/18 Exam# [id number] Ordering Dr: Roopa Victor MD STUDY: X-RAY CHEST REASON FOR EXAM: Female, 67 years old. Cough TECHNIQUE: AP portable COMPARISON: March 19, 2018 FINDINGS: Lungs are mildly hyperinflated but clear. There is no demonstrated pleural abnormality. Normal size heart. Normal mediastinum and denae. Normal visualized pulmonary arteries. Normal visualized aortic arch and descending thoracic aorta. Normal visualized thoracic spine. Normal visualized ribs, clavicles, and shoulders. There is no demonstrated abnormality of the visualized soft tissue structures of the upper abdomen. No significant change since prior exam RAD/Chest 1 View (Portable) IMPRESSION: No acute cardiopulmonary pathology Electronically Signed: Sheng Crawford MD at 19:00 EDT , Service support , CC: Roopa Victor MD; Patel Veliz MD Extraction Operator: Signed BRAIN/HEAD WITHOUT Observed: 03/29/2018 Status: F Source: [place] CONTRAST 6:08 PM [facility] REPOSITORY [facility] Imaging Services [address] [place] [address] Brain/Head without Contrast MR#: [id number] Acct: [id number] Name: XANDER RAMIREZ Rep #: [id number] : 1950 F 67 From: Sheng Crawford MD PCP: Patel Veliz MD, Chi Status: REG ER Study: Brain/Head without Contrast Date of Exam: 03/29/18 Exam# [id number] Ordering Dr: Roopa Victor MD STUDY: CT BRAIN WITHOUT CONTRAST REASON FOR EXAM: Female, 67 years old. Weakness with seizures and dizziness RADIATION DOSAGE (If Supplied By Facility): CTDIvol = ( 44.99 ) mGy, DLP = ( 779.24 ) mGycm TECHNIQUE: Transaxial CT imaging of the brain was performed without administration of intravenous contrast material. Individualized dose optimization techniques were used for this CT. COMPARISON: March 05, 2018 FINDINGS: Normal soft tissue structures. Normal calvarium. Mild atrophy and periventricular white matter ischemic changes.. Normal basal ganglia and thalami. Normal brainstem. Normal cerebellum. There is no intracranial hemorrhage. There are no findings of an acute ischemic infarction. Postsurgical changes of the orbits. Normal visualized paranasal sinuses. No significant changes since prior exam CT/Brain/Head without Contrast IMPRESSION: Mild atrophy and periventricular white matter ischemic changes. No evidence for acute bleed. If concern for acute infarct MRI recommended.. Electronically Signed: Sheng Crawford MD at 20:00 EDT , Service support , CC: Roopa Victor MD; Patel Veliz MD Extraction Operator: Signed DISCHARGE SUMMARY Observed: 03/22/2018 Status: F Source: [place] 8:34 AM [facility] REPOSITORY [facility] Medical Records Department [address] [place] [address] Discharge Summary 03/22/18 0826 MR#: [id number] Acct: [id number] Name: XANDER RAMIREZ Rep #: [id number] : 1950 67 From: Abelardo Waldrop MD PCP: Jose Alfredo LEACH,Patel Garvey Status: ADM IN Y Location: [place] [address] Discharge Date and Diagnosis - Problem List Patient Problems: Active and Suspected Problems (Last Reviewed 02/07/18 @ 14:36 by Crystal Ibanez) UTI (urinary tract infection) (Acute) Date of Admission: 03/19/18 Date of Discharge: 03/22/18 - Primary Discharge Diagnosis Active and Suspected Problems (Last Reviewed 02/07/18 @ 14:36 by Crystal Ibanez) UTI (urinary tract infection) (Acute) - Secondary Discharge Diagnosis Chronic Problems (Last Reviewed 02/07/18 @ 14:36 by Crystal Ibanez) Tobacco use (Chronic) Generalized weakness (Chronic) Debility (Chronic) Depression (Chronic) Insomnia (Chronic) She takes Temazepam every night for sleep, prescribed by Dr. Veliz Hypertension (Chronic) Physical debility (Chronic) Degenerative disc disease, lumbar (Chronic) Pain, chronic (Chronic) Seizure disorder (Chronic) Restless leg syndrome (Chronic) COPD (chronic obstructive pulmonary disease) (Chronic) 1 ppd now smoker 4 ppd Obstructive sleep apnea (Chronic) non-compliant with CPAP but has oxygen to wear at night Smokes with greater than 40 pack year history (Chronic) Hospital Course and Treatment Imaging Results: CT Abd/pelvis: IMPRESSION: No suspicious solid organ abnormality, changes consistent with previous cholecystectomy Retained stool noted throughout the colon. Scattered colonic diverticulosis Uterus is still present, the endometrium cannot be accurately evaluated with CT. Degenerative bony changes Consults: None Operations: None Procedures: None Summary of Care Provided: HPI: The patient is a 67 y/o F w/ PMHx: Seizure disorder, Restless leg, CHUY noncompliant with CPAP, Chronic Hypoxic Respiratory Failure (2L NC q HS only), Tobacco use, Chronic COPD, Chronic pain syndrome, Hypertension, Anxiety and Depression/Insomnia who [facility] with history of progressively worsening nausea, emesis, suprapubic TTP, urinary frequency noted to be going nearly hourly in addition to dysuria x 24 hours prompting eventual presentation without fevers but noted chills. In the ED work- up included T 98.7, heart rate 83, BP 97/63, respiratory rate 20, 96% on room air, BC with WBC 8.4, hgb 13.8, platelet 262 without market left shift, CMP with BUN/creatinine 21/0.62, glucose 117, lactic acid 1.8, urinalysis concerning for urinary tract infection with pending urine culture per ED, chest x-ray with chronic changes, CT abdomen and pelvis with no acute findings, retained stool throughout the colon, scattered colonic diverticulosis. In the ED patient administered normal saline, Zofran, fentanyl, IV Rocephin. Following IV fluids in the ED patient blood pressure did improve. Vital Signs - 24 hr 03/22/18 02:45 98.3 F 70 18 129/66 H 99 03/21/18 21:51 67 103/51 L 03/21/18 21:45 98.0 F 67 20 H 103/51 L 94 General: Alert, Oriented x3, Cooperative, No apparent distress HEENT: Atraumatic, EOMI, Normocephalic Oral: Moist Mucosa Neck: Supple, No JVD Lungs: Clear to auscultation, Normal air movement, No rhonchi, No wheeze, No rales Cardiovascular: Regular rate, Regular Rhythm, Normal S1, Normal S2, No murmurs Abdomen: Soft, Non-Distended, No Hepato-splenomegaly, Non-tender Extremities: No edema, Capillary Refill Less than 3 Seconds Skin: No rashes, No breakdown Hospital Course: 1. UTI with associated hypotension - Her hypotension resolved in the ER with IVF. Her dupree was removed prior to DC and she was able to urinate. She was maintained on IV rocephin until cultures finalized which grew Aerococcus urinae, so she was discharged with 3 days of PO keflex TID with outpatient follow-up with her PCP. D/t her hypotension and the need for IVF, her lasix were held on admission, which she can restart on discharge. 2. Seizure - She did have her dilantin level checked which was under 10, however she states she has been seizure free so no adjustments were made to her regimen. 3. She was continued on her home medications where appropriate. Discharge Activity: No Restrictions, May not drive while taking narcotic pain medications. Call your doctor if you observe: Fever of 101 or Higher, Inability to urinate, Shortness of breath Home Medications: Medications to take at Discharge Albuterol Aerosols [Ventolin Aerosols] 2.5 mg INHALATION Q4H PRN 05/12/16 Alendronate Sodium [Fosamax] 70 mg PO FR 05/12/16 Calcium Carbonate/Vitamin D3 [Oyster Shell 500-Vit D3 200 Tb] 1 ea PO DAILY 05/12/16 Etodolac 400 mg PO BID 05/12/16 Fluticasone/Salmeterol [Advair 250/50 Mcg Diskus] 2 puff INHALATION BID 05/12/16 Gabapentin [Neurontin] 300 mg PO BID 05/12/16 Phenytoin Na [Dilantin] 100 mg PO 4X/DAY 05/12/16 Ropinirole HCl [Requip] 2 mg PO QHS 05/12/16 Tolterodine Tartrate [Detrol LA] 4 mg PO QHS 05/12/16 Temazepam [Restoril] 30 mg PO QHS 06/24/17 Mirtazapine [Remeron] 15 mg PO QHS 07/03/17 Latanoprost 0.005% [Xalatan Opthalmic] 1 drp EACH EYE QHS 07/04/17 Furosemide [Lasix] 40 mg PO DAILY 09/04/17 Methadone HCl 10 mg PO TID 09/04/17 Amlodipine [Norvasc] 2.5 mg PO DAILY 11/07/17 Clotrimazole [Lotrimin] 1 applicatio TOPICAL BID PRN PRN 11/07/17 Ergocalciferol [Vitamin D] 50,000 units PO MO 11/07/17 Phenobarbital 32.4 mg PO TID 11/07/17 Potassium Chloride [K-Dur] 20 meq PO DAILY 11/07/17 Pravastatin [Pravachol] 40 mg PO QHS 11/07/17 Ranitidine [Zantac] 300 mg PO DAILY 11/07/17 buPROPion SR [Wellbutrin SR (150mg tablets)] 150 mg PO BID 11/07/17 Cyclobenzaprine [Flexeril] 10 mg PO TID PRN #20 tab 12/20/17 Acetaminophen [Tylenol Tablet] 650 mg PO Q6H PRN PRN tablet 03/07/18 Aspirin [Aspirin, Baby] 81 mg PO DAILY@0800 tab.chew 03/07/18 Metoprolol Tartrate 25 mg PO BID #60 tab 03/07/18 Cephalexin [Keflex] 500 mg PO Q8 #9 capsule 03/22/18 Enoxaparin [Lovenox] 40 mg SC DAILY@1000 syringe 03/22/18 Following Prescrptions Were Given to Patient: Cephalexin [Keflex] 500 mg PO Q8 #9 capsule Primary Care Physician: Patel Veliz Chi, MD [Primary Care Provider] - Please follow up with your Primary Care Physician in: in 3- 5 days Disposition: Home Minutes spent on discharge:: 35 Patient Condition:: Good Medical Necessity - Tobacco Use Smoking Status: Current every day smoker Tobacco Use: Cigarettes Meaningful Use Info Meaningful Use Diagnoses (Choose all that apply): None applicable Code Visit Inpatient E AND M: 24254 Disch Hosp 03/22/18 0834 <Electronically signed by Abelardo Waldrop MD> Date Abelardo Waldrop MD Cosigner Signature (if applicable): Date CC: Abelardo Waldrop MD; Patel Veliz MD Signed DISCHARGE INSTRUCTION Observed: 03/22/2018 Status: F Source: [place] 8:26 AM [facility] REPOSITORY [facility] Medical Records Department [address] [place] [id number] Instructions for Home/Discharge Instructions 03/22/18823 MR#: [id number] Acct: [id number] Name: XANDER RAMIREZ Rep #: [id number] : 1950 67 From: Abelardo Waldrop MD PCP: Jose Alfredo LEACH,Patel Garvey Status: ADM IN - Discharge Diagnoses Current Active Problems: Current Active and Chronic Problems (Last Reviewed 02/07/18 @ 14:36 by Crystal Ibanez) UTI (urinary tract infection) (Acute) You will use the following diet at home:: No restrictions, Regular Your food should be the consistency of: Regular Your liquids should be the consistency of: Regular/Thin Discharge Activity: No Restrictions, May not drive while taking narcotic pain medications. Call your doctor if you observe: Fever of 101 or Higher, Inability to urinate, Shortness of breath Allergies/Adverse Reactions: Allergies Penicillins Allergy (Verified 03/19/18 20:21) Anaphylaxis codeine Adverse Reaction (Verified 03/19/18 20:21) Nausea Medications to take at Discharge Albuterol Aerosols [Ventolin Aerosols] 2.5 mg INHALATION Q4H PRN 05/12/16 Alendronate Sodium [Fosamax] 70 mg PO FR 05/12/16 Calcium Carbonate/Vitamin D3 [Oyster Shell 500-Vit D3 200 Tb] 1 ea PO DAILY 05/12/16 Etodolac 400 mg PO BID 05/12/16 Fluticasone/Salmeterol [Advair 250/50 Mcg Diskus] 2 puff INHALATION BID 05/12/16 Gabapentin [Neurontin] 300 mg PO BID 05/12/16 Phenytoin Na [Dilantin] 100 mg PO 4X/DAY 05/12/16 Ropinirole HCl [Requip] 2 mg PO QHS 05/12/16 Tolterodine Tartrate [Detrol LA] 4 mg PO QHS 05/12/16 Temazepam [Restoril] 30 mg PO QHS 06/24/17 Mirtazapine [Remeron] 15 mg PO QHS 07/03/17 Latanoprost 0.005% [Xalatan Opthalmic] 1 drp EACH EYE QHS 07/04/17 Furosemide [Lasix] 40 mg PO DAILY 09/04/17 Methadone HCl 10 mg PO TID 09/04/17 Amlodipine [Norvasc] 2.5 mg PO DAILY 11/07/17 Clotrimazole [Lotrimin] 1 applicatio TOPICAL BID PRN PRN 11/07/17 Ergocalciferol [Vitamin D] 50,000 units PO MO 11/07/17 Phenobarbital 32.4 mg PO TID 11/07/17 Potassium Chloride [K-Dur] 20 meq PO DAILY 11/07/17 Pravastatin [Pravachol] 40 mg PO QHS 11/07/17 Ranitidine [Zantac] 300 mg PO DAILY 11/07/17 buPROPion SR [Wellbutrin SR (150mg tablets)] 150 mg PO BID 11/07/17 Cyclobenzaprine [Flexeril] 10 mg PO TID PRN #20 tab 12/20/17 Acetaminophen [Tylenol Tablet] 650 mg PO Q6H PRN PRN tablet 03/07/18 Aspirin [Aspirin, Baby] 81 mg PO DAILY@0800 tab.chew 03/07/18 Metoprolol Tartrate 25 mg PO BID #60 tab 03/07/18 Cephalexin [Keflex] 500 mg PO Q8 #9 capsule 03/22/18 Enoxaparin [Lovenox] 40 mg SC DAILY@1000 syringe 03/22/18 The following prescriptions were given: Cephalexin [Keflex] 500 mg PO Q8 #9 capsule Primary Care Physician: Patel Veliz Chi, MD [Primary Care Provider] - Please follow up with your Primary Care Physician in: in 3- 5 days Test Results: Test results from this visit will be discussed in further detail at your follow-up appointment, if applicable. 03/22/18 08 <Electronically signed by Abelardo Waldrop MD> Date Abelardo Waldrop MD CC: Patel Veliz MD CBC W/DIFF, AUTOMATED Collected: 03/20/2018 Status: F Source: [place] 5:28 AM [facility] REPOSITORY TYPE CODE TESTS RESULT OUT OF RANGE REFERENCE UNITS LAB L100.1000 4.4-11.0 K/mm3 Normal WBC 6.8 LAB L100.1200 4.2-5.4 M/mm3 Low RBC 3.71 LAB L100.1300 12.0-15.0 g/dl Low HGB 11.5 LAB L100.1400 37-47 % Low HCT 35.8 LAB L100.1500 81-99 fL Normal MCV 96.5 LAB L100.1600 27.0-32.0 pg Normal MCH 31.0 LAB L100.1700 32-36 g/gl Normal MCHC 32.1 LAB L100.1810 11.6-14.6 % Normal RDW CV 14.5 LAB L100.1820 35.1-43.9 fl High RDW SD 49.2 LAB L100.1900 150-450 K/mm3 Normal PLT 201 LAB L100.2000 6.2-12.0 fl Normal MPV 9.8 LAB L100.2100 47-70 % Normal NEUT% 66.4 LAB L100.2200 19-41 % Normal LY% 19.1 LAB L100.2300 0-10 % Normal MONO% 7.8 LAB L100.2400 0-5 % High EO% 5.7 LAB L100.2500 0-1 % Normal BASO% 0.6 LAB L100.2550 0.0-0.9 % Normal IM GRAN % 0.400 Result Comment: IG% - Immature Granulocytes (promyelocytes, myelocytes and metamyelocytes) > 1% indicates that a LEFT SHIFT is Present. LAB L100.2620 2.0-7.7 X10 3/uL Normal Absolute Neut 4.5 LAB L100.2720 0.83-4.51 X10 3/ul Normal Absolute Lymph 1.30 Performed By: #### L100.0100 #### [facility] [address] [place], [place], [id number] BASIC METABOLIC Collected: 03/20/2018 Status: F Source: [place] PROFILE (BMP) 5:28 AM [facility] REPOSITORY TYPE CODE TESTS RESULT OUT OF RANGE REFERENCE UNITS LAB L501.0100 74-106 mg/dL High GLU 117 Result Comment: Fasting Glucose result from 100 to 125 mg/dL suggests IMPAIRED HOMEOSTASIS per A.D.A. criteria. Please note revised GLUCOSE reference range effective 2017. LAB L501.1000 7-18 mg/dL Normal BUN 16 LAB L501.1100 0.55-1.02 mg/dL Low CREAT,SERUM 0.46 Result Comment: The validity of the calculated GFR AND GFRAA in patients over 70 years has not been determined. Clinical correlation is essential. LAB L501.1110 >60 mL/min Normal EST GFR 145 Result Comment: Non- GFR Calc LAB L501.1115 >60 mL/min Normal EST GFR - AA 176 Result Comment: GFR Calc LAB L501.1255 ml/min Normal Estimated CRCL 48.45 LAB L501.1300 10-20 RATIO High BUN/CRE 35.2 LAB L501.2200 8.5-10 mg/dL Low .1 CA 7.5 LAB L501.5300 136-14 mmol/L Normal 5 NA 144 LAB L501.5600 3.5-5. mmol/L Normal 1 K 4.0 LAB L501.5900 98-107 mmol/L High CL 112 LAB L501.6100 21.0-3 mmol/L Normal 2.0 CO2 26.0 LAB L501.6200 5-15 Normal GAP 6 Performed By: #### L500.2500 #### [facility] [address] [facility] [place], [address] HISTORY AND PHYSICAL Observed: 03/20/2018 Status: F Source: [place] EXAM 12:37 AM [facility] REPOSITORY [facility] Medical Records Department [address] [place] [address] History and Physical 03/19/18 2354 MR#: [id number] Acct: [id number] Name: XANDER RAMIREZ Rep #: [id number] : 1950 67 From: Arielle Hensley PCP: Jose Alfredo LEACH,[facility] Status: ADM IN Location: [place] [address] Problem List (1) UTI (urinary tract infection) Status: Acute Qualifiers: Urinary tract infection type: acute cystitis (2) Tobacco use Status: Chronic (3) Depression Status: Chronic Qualifiers: Depression Type: unspecified Qualified Code(s): F32.9 - Major depressive disorder, single episode, unspecified (4) Insomnia Status: Chronic Qualifiers: Insomnia type: unspecified Qualified Code(s): G47.00 - Insomnia, unspecified Comment: She takes Temazepam every night for sleep, prescribed by Dr. Veliz (5) Hypertension Status: Chronic Qualifiers: Hypertension type: essential hypertension Qualified Code(s): I10 - Essential (primary) hypertension (6) Degenerative disc disease, lumbar Status: Chronic (7) Pain, chronic Status: Chronic Qualifiers: Chronic pain type: chronic pain syndrome Qualified Code(s): G89.4 - Chronic pain syndrome (8) Seizure disorder Status: Chronic (9) Restless leg syndrome Status: Chronic (10) COPD (chronic obstructive pulmonary disease) Status: Chronic Qualifiers: COPD type: unspecified COPD Qualified Code(s): J44.9 - Chronic obstructive pulmonary disease, unspecified Comment: 1 ppd now smoker 4 ppd (11) Obstructive sleep apnea Status: Chronic Comment: non-compliant with CPAP but has oxygen to wear at night (12) Smokes with greater than 40 pack year history Status: Chronic History of Present Illness Date of Admission: 03/19/18 Chief Complaint: N/V, dysuria The patient is a 67 y/o F w/ PMHx: Seizure disorder, Restless leg, CHUY noncompliant with CPAP, Chronic Hypoxic Respiratory Failure (2L NC q HS only), Tobacco use, Chronic COPD, Chronic pain syndrome, Hypertension, Anxiety and Depression/Insomnia who [facility] with history of progressively worsening nausea, emesis, suprapubic TTP, urinary frequency noted to be going nearly hourly in addition to dysuria x 24 hours prompting eventual presentation without fevers but noted chills. In the ED work-up included T 98.7, heart rate 83, BP 97/63, respiratory rate 20, 96% on room air, BC with WBC 8.4, hgb 13.8, platelet 262 without market left shift, CMP with BUN/creatinine 21/0.62, glucose 117, lactic acid 1.8, urinalysis concerning for urinary tract infection with pending urine culture per ED, chest x-ray with chronic changes, CT abdomen and pelvis with no acute findings, retained stool throughout the colon, scattered colonic diverticulosis. In the ED patient administered normal saline, Zofran, fentanyl, IV Rocephin. Following IV fluids in the ED patient blood pressure did improve. Past Medical History Past Medical History (Chronic Problems): Chronic Problems (Last Reviewed 02/07/18 @ 14:36 by Crystal Ibanez) Tobacco use (Chronic) Generalized weakness (Chronic) Debility (Chronic) Depression (Chronic) Insomnia (Chronic) She takes Temazepam every night for sleep, prescribed by Dr. Veliz Hypertension (Chronic) Physical debility (Chronic) Degenerative disc disease, lumbar (Chronic) Pain, chronic (Chronic) Seizure disorder (Chronic) Restless leg syndrome (Chronic) COPD (chronic obstructive pulmonary disease) (Chronic) 1 ppd now smoker 4 ppd Obstructive sleep apnea (Chronic) non-compliant with CPAP but has oxygen to wear at night Smokes with greater than 40 pack year history (Chronic) Medical History: Medical History (Last Reviewed 02/07/18 @ 14:36 by Crystal Ibanez) Acidosis (Acute) E87.2 Generalized weakness (Chronic) R53.1 Debility (Chronic) R53.81 Acute and chronic respiratory failure with hypoxia (Acute) J96.21 Nicotine abuse (Acute) Z72.0 Acute respiratory failure with hypercapnia (Acute) J96.02 Acute respiratory failure with hypoxia and hypercapnia (Acute) J96.01, J96.02 Acute exacerbation of chronic obstructive airways disease (Acute) J44.1 Hypokalemia (Acute) E87.6 Subtherapeutic serum dilantin level (Acute) R78.89 Subtherapeutic phenobarb level (Acute) Depression (Chronic) F32.9 Insomnia (Chronic) G47.00 She takes Temazepam every night for sleep, prescribed by Dr. Veliz Hypertension (Chronic) I10 Fever (Acute) R50.9 Physical debility (Chronic) R53.81 Degenerative disc disease, lumbar (Chronic) M51.36 Pain, chronic (Chronic) G89.29 Seizure disorder (Chronic) G40.909 Restless leg syndrome (Chronic) COPD (chronic obstructive pulmonary disease) (Chronic) J44.9 1 ppd now smoker 4 ppd Obstructive sleep apnea (Chronic) G47.33 non-compliant with CPAP but has oxygen to wear at night Smokes with greater than 40 pack year history (Chronic) F17.210 Allergies Penicillins Allergy (Verified 03/19/18 20:21) Anaphylaxis codeine Adverse Reaction (Verified 03/19/18 20:21) Nausea Home Medications: Ambulatory Orders Medication Instructions Recorded Albuterol Aerosols [Ventolin 2.5 mg INHALATION Q4H PRN 05/12/16 Aerosols] Surgical History: Surgical History (Last Reviewed 02/07/18 @ 14:36 by Crystal Ibanez) History of right hip replacement (Acute) Z96.641 Broken ankle (Acute) S82.899A S/P laparoscopic cholecystectomy (Acute) Z90.49 S/P appendectomy (Acute) Z90.49 Surgical History: appendectomy, cholecystectomy, - - Fractured right ankle, carpal tunnel surgery, removal of teeth, right ovariectomy and fallopian tube removal. Psychiatric History: Anxiety, Depression - untreated BACK SIZER History: No pertinent BACK SIZER history Lives: Alone Smoking Status: Current every day smoker - 1 ppd cigarette tobacco use. Tobacco Use: Cigarettes Alcohol: None Drugs: None - *Family History Maternal Family History: Family History (Last Updated 02/07/18 @ 14:39 by Crystal Ibanez) Mother Diabetes Heart disease Hypertension CAD (coronary artery disease) CVA (cerebral vascular accident) History Items: Diabetes Paternal Family History: Family History (Last Updated 02/07/18 @ 14:39 by Crystal Ibanez) Mother Diabetes Heart disease Hypertension CAD (coronary artery disease) CVA (cerebral vascular accident) History Items: Cancer - colon Sibling Family History: Family History (Last Updated 02/07/18 @ 14:39 by Crystal Ibanez) Mother Diabetes Heart disease Hypertension CAD (coronary artery disease) CVA (cerebral vascular accident) History Items: No pertinent history Review of Systems Constitutional: Reports: Anorexia, Chills, Malaise, Weakness, Fatigue. Denies: Fever, Weight Change HEENT: Denies: Head Aches, Sinus Congestion, Sinus Drainage Cardiovascular: Denies: Chest Pain, Palpitations Respiratory: Denies: Cough, Shortness of breath at rest, Sputum production Gastrointestinal: Reports: Abdominal Pain, Nausea, Vomiting Genitourinary: Reports: Dysuria, Frequency Musculoskeletal: Denies: Joint Pain, Joint Tenderness Skin: Denies: Rash, Wounds Neurological: Denies: Numbness, Tingling, Focal weakness Psychiatric: Denies: Anxiety, Depression, Homicidal Ideations, Suicidal Ideations Hematologic/ Lymphatic: Denies: Easy Bruising, Easy Bleeding VTE Information - Inpt Only VTE Present on Admission: No VTE Mechan Device Prophylaxis: SCD's VTE Pharm Prophylaxis ordered?: Yes Patient Problems: Active and Suspected Problems (Last Reviewed 02/07/18 @ 14:36 by Crystal Ibanez) UTI (urinary tract infection) (Acute) Subjective: Seated upright in the ED bed, fatigued appearance, NAD. Objective: Physical Examination: General: awake, alert, oriented x 3 and cooperative, seated upright in the ED bed in no apparent distress, fatigued appearing. Skin: normal color, turgor, no icterus, cyanosis. HEENT: AT/NC, EOMI, PERRLA, dry MM, lacking dentition, no carotid bruits or JVD noted. Lungs: Diminished BS BL, > bases, mild effort, no rales, ronchi or wheezing. Heart: Regular rate and rhythm; no gallop, rub audible. Abdomen: soft, mild suprapubic TTP, ND, decreased BS, no HSM. Extremities: no cyanosis, clubbing, or edema. Neurological: patient awake, alert, oriented x 3; cognitive function intact; pupils equally reactive to light and accomodation; cranial nerves II-XII grossly normal, moving all 4 extremities, no focal deficits, strength moderately globally decreased secondary to acute presentation. Psychiatric: affect appears fatigued, no acute evidence of depressive or anxiety feelings. - Physical Exam Vital Signs Temp Pulse Resp BP Pulse Ox 98.7 F 70 13 106/61 96 03/19/18 20:18 03/19/18 22:54 03/19/18 22:54 03/19/18 22:54 03/19/18 22:54 Oxygen Delivery Method Room Air Weight: 160 lb 11.472 oz Body Mass Index (BMI) 23.7 Laboratory Tests Past 24 Hrs WBC 8.4 RBC 4.36 Hgb 13.8 Hct 41.6 MCV 95.4 MCH 31.7 WBC RBC Hgb Hct MCV MCH MCHC RDW RDW Differential Plt Count MPV Immature Gran % (Auto) Assessment/Plan All Active Problems (Last Reviewed 02/07/18 @ 14:36 by Crystal Ibanez) UTI (urinary tract infection) (Acute) SIRS (systemic inflammatory response syndrome) (Acute) Viral illness (Acute) Cardiac enzymes elevated (Acute) History of right hip replacement (Acute) Broken ankle (Acute) S/P laparoscopic cholecystectomy (Acute) S/P appendectomy (Acute) Acidosis (Acute) Acute and chronic respiratory failure with hypoxia (Acute) Nicotine abuse (Acute) Acute respiratory failure with hypercapnia (Acute) Acute respiratory failure with hypoxia and hypercapnia (Acute) Acute exacerbation of chronic obstructive airways disease (Acute) Hypokalemia (Acute) Subtherapeutic serum dilantin level (Acute) Subtherapeutic phenobarb level (Acute) Fever (Acute) Fracture of left great toe (Resolved) Frequent falls (Resolved) The patient is a 67 y/o F w/ PMHx: Seizure disorder, Restless leg, CHUY noncompliant with CPAP, Chronic Hypoxic Respiratory Failure (2L NC q HS only), Tobacco use, Chronic COPD, Chronic pain syndrome, Hypertension, Anxiety and Depression/Insomnia who [facility] with history of progressively worsening nausea, emesis, suprapubic TTP, urinary frequency noted to be going nearly hourly in addition to dysuria x 24 hours prompting eventual presentation without fevers but noted chills. (1) Acute Urinary Tract Infection: Will admit to [facility] upon ED evaluation remarkable, pending UCx, continue IVFs w/ hold parameters on patient BP regimen, monitor I/Os, continue IV Rocephin w/ transition as able pending sensitivities and speciation. Bld Cx not obtained per ED. (2) Recent Indeterminate cardiac enzyme: Recent admission w/ terminate cardiac enzyme 0.2 range, echocardiogram with normal LV size, normal LV systolic function, EF 60%, no evidence for diastolic dysfunction, mild TV insufficiency, 03/07/18 cardiac stress testing with no myocardial perfusion changes consider diagnostic for associated stress- induced myocardial ischemia. (3) Chronic COPD w/ Chronic Hypoxic Respiratory Failure: Continue home O2 supplementation q HS, continue ATC duonebs, PRN albuterol, HOB, IS parameters. (4) Tobacco Abuse: Encouraged cessation, inpatient consultation per RT, NR declined. (5) Seizure disorder: Continue home regimen Dilantin and phenobarbital, Dilantin. (6) Chronic Pain Syndrome: Maintain on patient home methadone and gabapentin regimen regimen. (7) Anxiety and Depression: Maintain on home Wellbutrin, Remeron, Restoril regimen although as noted prior unclear why dual sedation PM regimen. (8) HTN: Maintain on home regimen of Norvasc, Lasix with hold parameters given presentation w/ initially hypotension. (9) Hyperlipidemia: Continue home statin regimen. (10) CHUY: Declines CPAP q HS. (11) RLS: Maintain on home requip regimen. (12) GERD: Continue home regimen Ranitidine. (13) DVT Prophylaxis: SCDs, lovenox. Code Visit Inpatient E AND M: 17599 Init Hosp L3 03/20/18 0037 <Electronically signed by Arielle Hensley > Date Arielle Hensley Cosigner Signature: Date (if applicable) CC: Arielle Hensley; Patel Veliz MD Signed EMERGENCY DEPARTMENT Observed: 03/20/2018 Status: F Source: [place] SUMMARY 12:21 AM [facility] REPOSITORY [facility] Medical Records Department [address] [place] [address] Emergency Department Summary 03/19/18 2259 MR#: [id number] Acct: [id number] Name: XANDER RAMIREZ Rep #: [id number] : 1950 67 From: Lola Fuentes MD PCP: Patel Veliz MD, Chi Status: ADM IN - ER Visit Summary Date of Service: 03/19/18 Chief Complaint: Nausea, vomiting, cough, abdominal pain History of Present Illness: The patient is a 67 F who states she started feeling ill last evening. She woke this morning with abdominal cramping and headache. She reports cough and posttussive emesis. She reports hot and cold flashes but did not measure her temperature. Past history significant for COPD, hypertension, high cholesterol, seizures. Physical Examination: Blood pressure is 109/71, temperature 98.7, respiratory rate 20, pulse ox 96% on room air. Patient is sitting upright in bed no acute distress. She appears uncomfortable. Head neck examination unremarkable. Heart is regular rate and rhythm. Lung sounds are clear. Abdomen is soft with mild diffuse tenderness. There is no guarding or rebound. Active bowel sounds are noted throughout. Skin examination reveals no rash or lesions Test Results: CBC and chemistry studies are unremarkable. LFTs normal. Dilantin level is borderline low at 9.8. Urinalysis reveals 10-25 white cells with 3+ bacteria. Emergency Department Course and Treatment: Patient was initially ordered a 500 cc fluid bolus followed by drip at 150. She was given a dose of fentanyl and Zofran. Systolic blood pressure was initially in the 90s on my evaluation. It continued to remain low in the 80s and 90s. Urine culture is sent. Patient is given a dose of Rocephin. An additional 1 L IV fluid boluses ordered along with a lactic acid level. Lactic acid returns at 1.8. Blood pressures have now been running in the 100-110 systolic range. At this time patient be admitted for further treatment and evaluation. Treatment Plan: [] Disposition: Admit Impression: 1. Cystitis 2. Hypotension, improved This note was generated with [employer] dictation software. It may contain incorrect words, spelling, and punctuation that were not noted in review of the chart prior to signing ED Disposition - Plan for ED Patient: Chief Complaint: General Illness Referrals: Patel Veliz Chi, MD [Primary Care Provider] - What to do if you have Problems For any increased pain, shortness of breath, bleeding, nausea or vomiting, chest pain, or any unexpected problems, contact your Primary Care Provider. Call [facility] ([phone]) or report to the closest Emergency Room. Call 911 if necessary. 03/20/18 0021 <Electronically signed by Lola Fuentes MD> Date Lola Fuentes MD Cosigner Signature (If Indicated): Date CC: Patel Veliz MD LACTIC ACID Collected: 03/19/2018 Status: F Source: [place] 10:45 PM [facility] REPOSITORY Order Comment: Yes/No query for Sepsis Lactate Rule Y TYPE CODE TESTS RESULT OUT OF RANGE REFERENCE UNITS LAB L503.6005 0.4-2.0 mmol/L Normal LACTIC ACID 1.8 Performed By: #### L503.6005 #### [facility] [address] [place], [address] URINALYSIS, COMPLETE Collected: 03/19/2018 Status: F Source: [place] 9:55 PM [facility] REPOSITORY Order Comment: How was Urine Obtained? JORDAN WORKER TO SPECIFY TYPE CODE TESTS RESULT OUT OF RANGE REFERENCE UNITS LAB L400.3000 Yellow COLOR Normal Yellow LAB L400.3050 Clear Normal CLARITY Clear LAB L400.3200 Normal mg/dl Normal GLUCOSE, UR Normal LAB L400.3300 Negative mg/dL High BILIRUBIN URINE 3 Result Comment: COLOR OF URINE MAY AFFECT DIPSTICK RESULTS. LAB L400.3400 Negative mg/dl Normal KETONE UR Negative LAB L400.3465 1.002-1.030 Normal SP.GR. DIPSTX 1.010 LAB L400.3550 5.0 - 8.0 pH Normal UR 6.5 LAB L400.3600 Negative mg/dl Normal PROT DIPSTX Negative LAB L400.3700 Normal mg/dl Normal UROBILI Normal LAB L400.3750 Negative Normal NITRITE UR Negative LAB L400.3780 Negative /ul Normal OCCULT Negative BLOOD-UR LAB L400.3800 Negative /ul High LEUK ESTERASE 100 LAB L400.4050 0-5 /hpf Normal WBC 10-25 SEEN LAB L400.4100 0-5 /hpf Normal RBC-UA 0 SEEN LAB L400.4150 5-10 /hpf Normal SQUAM EPI 0 SEEN LAB L400.4300 None Seen /hpf Normal BACTERIA 3+ LAB L400.4350 <or=2+ /hpf Normal MUCUS, URINE 0 SEEN Performed By: #### L400.0001 #### [facility] [address] [place], [address] Observed: 03/19/2018 Status: F Source: [place] CULTURE, URINE 9:55 PM [facility] REPOSITORY Urine Culture There are no CLSI standards for interpretation of this Drug/Organism combination. ORGANISM 1: Aerococcus urinae Nemo Count >100,000 Performed By: #### M100.0650 #### [facility] [address] [place], [address] CHEST 1 VIEW Observed: 03/19/2018 Status: F Source: [place] (PORTABLE) 8:46 PM [facility] REPOSITORY [facility] Imaging Services [address] [place] [address] Chest 1 View (Portable) MR#: [id number] Acct: [id number] Name: XANDER RAMIREZ Rep #: [id number] : 1950 F 67 From: Gabby Medina MD PCP: Jose Alfredo LEACH,Patel [facility] Status: REG ER Study: Chest 1 View (Portable) Date of Exam: 03/19/18 Exam# [id number] Ordering Dr: Lola Fuentes MD STUDY: X-RAY CHEST REASON FOR EXAM: Female, 67 years old. Cough. TECHNIQUE: Portable chest. COMPARISON: 03/05/2018. FINDINGS: The lungs are clear and expanded. There is no demonstrated pleural abnormality. Normal size heart. Normal mediastinum and denae. Normal visualized pulmonary arteries. Normal visualized aortic arch and descending thoracic aorta. There are mild degenerative changes of the shoulders bilaterally. Soft tissues and bony structures are otherwise unremarkable. RAD/Chest 1 View (Portable) IMPRESSION: No acute process. Electronically Signed: Gabby Medina MD at 21:00 EDT Tel , Service support , CC: Lola Fuentes MD; Patel Veliz MD Extraction Operator: Signed ABDOMEN/PELVIS WITHOUT Observed: 03/19/2018 Status: F Source: [place] CONT 8:46 PM [facility] REPOSITORY [facility] Imaging Services [address] [place] [address] Abdomen/Pelvis without Cont MR#: [id number] Acct: [id number] Name: XANDER RAMIREZ Rep #: [id number] : 1950 F 67 From: Allen Lawrence MD PCP: Patel Veliz MD, Chi Status: REG ER Study: Abdomen/Pelvis without Cont Date of Exam: 03/19/18 Exam# [id number] Ordering Dr: Lola Fuentes MD STUDY: CT ABDOMEN AND PELVIS WITHOUT CONTRAST REASON FOR EXAM: Female, 67 years old. Nausea, vomiting, cough RADIATION DOSAGE (If Supplied By Facility): CTDIvol = ( 9.14 ) mGy, DLP = ( 416.51 ) mGycm TECHNIQUE: Transaxial images were obtained from the dome of the diaphragm to the symphysis pubis without oral contrast, and without intravenous contrast. Sagittal and coronal images were reconstructed. Individualized dose optimization techniques were used for this CT. COMPARISON: 02/24/2018 FINDINGS: There are chronic interstitial fibrotic changes of the lung bases. The visualized portions of the heart are within normal limits. Liver is unremarkable aside from stable intrahepatic biliary dilatation, patient has had a previous cholecystectomy. Normal spleen. Normal pancreas. Normal bilateral adrenal glands. Normal right kidney. Normal left kidney. Normal visualized stomach. Normal small intestine. Retained stool noted throughout the colon. Scattered colonic diverticula noted. There is non-visualization of the appendix. There is diffuse atherosclerotic calcification of the abdominal aorta, without a demonstrated aneurysm. Normal inferior vena cava. Normal retroperitoneum. Normal urinary bladder. Uterus is still present, the endometrium cannot be accurately evaluated with CT. Normal abdominal wall. There are diffuse degenerative changes of the visualized lumbar spine. CT/Abdomen/Pelvis without Cont IMPRESSION: No suspicious solid organ abnormality, changes consistent with previous cholecystectomy Retained stool noted throughout the colon. Scattered colonic diverticulosis Uterus is still present, the endometrium cannot be accurately evaluated with CT. Degenerative bony changes Electronically Signed: Edison Lawrence MD at 21:50 EDT , Service support , CC: Lola Fuentes MD; Patel Veliz MD Extraction Operator: Signed CBC W/DIFF, AUTOMATED Collected: 03/19/2018 Status: F Source: [place] 8:25 PM [facility] REPOSITORY TYPE CODE TESTS RESULT OUT OF RANGE REFERENCE UNITS LAB L100.1000 4.4-11.0 K/mm3 Normal WBC 8.4 LAB L100.1200 4.2-5.4 M/mm3 Normal RBC 4.36 LAB L100.1300 12.0-15.0 g/dl Normal HGB 13.8 LAB L100.1400 37-47 % Normal HCT 41.6 LAB L100.1500 81-99 fL Normal MCV 95.4 LAB L100.1600 27.0-32.0 pg Normal MCH 31.7 LAB L100.1700 32-36 g/gl Normal MCHC 33.2 LAB L100.1810 11.6-14.6 % Normal RDW CV 14.4 LAB L100.1820 35.1-43.9 fl High RDW SD 48.2 LAB L100.1900 150-450 K/mm3 Normal PLT 262 LAB L100.2000 6.2-12.0 fl Normal MPV 9.9 LAB L100.2100 47-70 % Normal NEUT% 49.0 LAB L100.2200 19-41 % Normal LY% 33.3 LAB L100.2300 0-10 % High MONO% 10.9 LAB L100.2400 0-5 % High EO% 5.6 LAB L100.2500 0-1 % Normal BASO% 0.8 LAB L100.2550 0.0-0.9 % Normal IM GRAN % 0.400 Result Comment: IG% - Immature Granulocytes (promyelocytes, myelocytes and metamyelocytes) > 1% indicates that a LEFT SHIFT is Present. LAB L100.2620 2.0-7.7 X10 3/uL Normal Absolute Neut 4.1 LAB L100.2720 0.83-4.51 X10 3/ul Normal Absolute Lymph 2.78 Performed By: #### L100.0100 #### [facility] [address] [place], [address] BASIC METABOLIC Collected: 03/19/2018 Status: F Source: [place] PROFILE ([facility]) 8:25 PM [facility] REPOSITORY TYPE CODE TESTS RESULT OUT OF RANGE REFERENCE UNITS LAB L501.0100 74-106 mg/dL High GLU 117 Result Comment: Fasting Glucose result from 100 to 125 mg/dL suggests IMPAIRED HOMEOSTASIS per A.D.A. criteria. Please note revised GLUCOSE reference range effective 2017. LAB L501.1000 7-18 mg/dL High BUN 21 LAB L501.1100 0.55-1.02 mg/dL Normal CREAT,SERUM 0.62 Result Comment: The validity of the calculated GFR AND GFRAA in patients over 70 years has not been determined. Clinical correlation is essential. LAB L501.1110 >60 mL/min Normal EST GFR 102 Result Comment: Non- GFR Calc LAB L501.1115 >60 mL/min Normal EST GFR - AA 124 Result Comment: GFR Calc LAB L501.1255 ml/min Normal Estimated CRCL 56.27 LAB L501.1300 10-20 RATIO High BUN/CRE 34.1 LAB L501.2200 8.5-10 mg/dL Normal .1 CA 9.0 LAB L501.5300 136-14 mmol/L Normal 5 NA 141 LAB L501.5600 3.5-5. mmol/L Normal 1 K 3.9 LAB L501.5900 98-107 mmol/L Normal CL 103 LAB L501.6100 21.0-3 mmol/L Normal 2.0 CO2 29.0 LAB L501.6200 5-15 Normal GAP 9 Performed By: #### L500.2500, L500.3400 #### [facility] [address] [place], [address] LIVER PROFILE Collected: 03/19/2018 Status: F Source: [place] 8:25 PM [facility] REPOSITORY TYPE CODE TESTS RESULT OUT OF RANGE REFERENCE UNITS LAB L501.1500 6.4-8.2 g/dL Normal T PROT 6.8 LAB L501.1800 3.2-5.0 g/dL Normal ALB 3.2 LAB L501.1950 2.2-4.2 g/dL Normal GLOB 3.6 LAB L501.4100 15-37 U/L Normal AST 18 LAB L501.4305 45-117 U/L Normal ALK P 77 LAB L501.4405 13-56 U/L Normal ALT 29 LAB L501.4600 0.20-1.00 mg/dL Normal T BILI 0.20 LAB L501.4700 0.00-0.30 mg/dL Normal D BILI 0.10 Performed By: #### L500.2500, L500.3400 #### [facility] [address] [place], [address] PHENYTOIN (DILANTIN) Collected: 03/19/2018 Status: F Source: [facility] 8:25 PM [facility] REPOSITORY TYPE CODE TESTS RESULT OUT OF REFERENCE UNITS RANGE LAB L501.7700 10.0-20.0 mL Low PHENYTOIN 9.8 Performed By: #### L501.7700 #### [facility] [address] [place], [address] MAGNESIUM Collected: 03/19/2018 Status: F Source: [place] 8:25 PM [facility] REPOSITORY TYPE CODE TESTS RESULT OUT OF RANGE REFERENCE UNITS LAB L501.5200 1.6-2.6 mg/dL Normal MG 2.2 Performed By: #### L501.5200 #### [facility] [address] [place], [address] COMPREHENSIVE METABOLIC Collected: 03/14/2018 Status: F Source: [place] PROFIL 3:21 PM [facility] REPOSITORY TYPE CODE TESTS RESULT OUT OF RANGE REFERENCE UNITS LAB L501.0100 74-106 mg/dL High GLU 125 Result Comment: Fasting Glucose result from 100 to 125 mg/dL suggests IMPAIRED HOMEOSTASIS per A.D.A. criteria. Please note revised GLUCOSE reference range effective 2017. LAB L501.1000 7-18 mg/dL Normal BUN 17 LAB L501.1100 0.55-1.02 mg/dL Normal CREAT,SERUM 0.77 Result Comment: The validity of the calculated GFR AND GFRAA in patients over 70 years has not been determined. Clinical correlation is essential. LAB L501.1110 >60 mL/min Normal EST GFR 79 Result Comment: Non- GFR Calc LAB L501.1115 >60 mL/min Normal EST GFR - AA 96 Result Comment: GFR Calc LAB L501.1300 10-20 RATIO High BUN/CRE 22.1 LAB L501.1500 6.4-8.2 g/dL T Normal PROT 7.1 LAB L501.1800 3.2-5.0 g/dL Normal ALB 3.5 LAB L501.1950 2.2-4.2 g/dL Normal GLOB 3.6 LAB L501.2000 0.9-2.4 RATIO Normal A/G 1.0 LAB L501.2200 8.5-10.1 mg/dL Low CA 8.4 LAB L501.4100 15-37 U/L High AST 42 LAB L501.4305 45-117 U/L Normal ALK P 88 LAB L501.4405 13-56 U/L Normal ALT 48 LAB L501.4600 0.20-1.00 mg/dL T Normal BILI 0.30 LAB L501.5300 136-145 mmol/L NA Normal 138 LAB L501.5600 3.5-5.1 mmol/L K Normal 5.0 LAB L501.5900 98-107 mmol/L CL Normal 103 LAB L501.6100 21.0-32.0 mmol/L Normal CO2 27.0 LAB L501.6200 5-15 Normal GAP 8 Performed By: #### L500.4050, L501.9520 #### [facility] [address] [place], [place], [address] THYROID STIM HORMONE Collected: 03/14/2018 Status: F Source: [place] (TSH) 3:21 PM [facility] REPOSITORY TYPE CODE TESTS RESULT OUT OF RANGE REFERENCE UNITS LAB L501.9520 0.358-3.74 uIU/mL Normal TSH 1.42 Performed By: #### L500.4050, L501.9520 #### [facility] [address] [place], [place], [address] CBC W/DIFF, AUTOMATED Collected: 03/14/2018 Status: F Source: [place] 3:21 PM [facility] REPOSITORY TYPE CODE TESTS RESULT OUT OF RANGE REFERENCE UNITS LAB L100.1000 4.4-11.0 K/mm3 Normal WBC 6.3 LAB L100.1200 4.2-5.4 M/mm3 Normal RBC 4.60 LAB L100.1300 12.0-15.0 g/dl Normal HGB 14.5 LAB L100.1400 37-47 % Normal HCT 43.6 LAB L100.1500 81-99 fL Normal MCV 94.8 LAB L100.1600 27.0-32.0 pg Normal MCH 31.5 LAB L100.1700 32-36 g/gl Normal MCHC 33.3 LAB L100.1810 11.6-14.6 % Normal RDW CV 14.5 LAB L100.1820 35.1-43.9 fl High RDW SD 48.2 LAB L100.1900 150-450 K/mm3 Normal PLT 239 LAB L100.2000 6.2-12.0 fl Normal MPV 11.3 LAB L100.2100 47-70 % Low NEUT% 44.5 LAB L100.2200 19-41 % Normal LY% 36.5 LAB L100.2300 0-10 % Normal MONO% 9.0 LAB L100.2400 0-5 % High EO% 9.3 LAB L100.2500 0-1 % Normal BASO% 0.5 LAB L100.2550 0.0-0.9 % Normal IM GRAN % 0.200 Result Comment: IG% - Immature Granulocytes (promyelocytes, myelocytes and metamyelocytes) > 1% indicates that a LEFT SHIFT is Present. LAB L100.2620 2.0-7.7 X10 3/uL Normal Absolute Neut 2.8 LAB L100.2720 0.83-4.51 X10 3/ul Normal Absolute Lymph 2.31 Performed By: #### L100.0100 #### [facility] [address] [facility] [place], [address] VITAMIN D,25 HYDROXY Collected: 03/14/2018 Status: F Source: [place] 3:21 PM [facility] REPOSITORY TYPE CODE TESTS RESULT OUT OF RANGE REFERENCE UNITS LAB L506.1000 29.95-100.01 ng/mL Normal Vitamin D 33.8 25-OH Result Comment: Vitamin D 25(OH) Status Range Deficiency <20 ng/mL (50nmol/L) Insuffciency 20 - 30 ng/mL (50 - 75 nmol/L) Sufficiency 30 - 100 ng/mL (75 - 250 nmol/L) Toxicity >100 ng/mL (>250 nmol/L) Performed By: #### L506.1000 #### [facility] [address] [facility] [place], [address] 12 LEAD ELECTROCARDIOGRAM Observed: 03/09/2018 Status: F Source: [place] 2:28 PM [facility] REPOSITORY [facility] Cardiovascular Services [address] [place] [address] [place] [address] 12 Lead EKG 03/07/18 0457 MR#: [id number] Acct: [id number] Name: XANDER RAMIREZ Rep #: [id number] : 1950 67 From: Tank Hernandez MD Attending Dr: Thai Collado DO Status: DIS IN Ordering Dr: Saulo Pagan MD Date: 03/07/18 Location: [facility] Sex: F C Admitted: 03/05/18 Test Reason : AM EKG Blood Pressure : / mmHG Vent. Rate : 077 BPM Atrial Rate : 077 BPM P-R Int : 158 ms QRS Dur : 100 ms QT Int : 410 ms P-R-T Axes : 064 037 054 degrees QTc Int : 463 ms Normal sinus rhythm T wave abnormality, consider anterior ischemia Abnormal ECG When compared with ECG of 06-MAR-2018 05:56, MANUAL COMPARISON REQUIRED, DATA IS UNCONFIRMED Confirmed by TANK HERNANDEZ MD ([id number]), web content editor GOPI RAMIREZ ([id number]) on 03/09/2018 2:28:37 PM Referred By: DR HENSLEY Confirmed By:TANK HERNANDEZ MD 03/09/18 1428 Date Tank Hernandez MD CC: Thai Collado DO; Saulo Pagan MD; Patel Veliz MD Signed 12 LEAD ELECTROCARDIOGRAM Observed: 03/08/2018 Status: F Source: [place] 3:26 PM [facility] REPOSITORY [facility] Cardiovascular Services [address] [place] [address] 12 Lead EKG 03/05/18 1748 MR#: [id number] Acct: [id number] Name: XANDER RAMIREZ Rep #: [id number] : 1950 67 From: Tank Hernandez MD Attending Dr: Thai Collado DO Status: DIS IN Ordering Dr: Arielle Hensley Date: 03/05/18 Location: [facility] Sex: F C Admitted: 03/05/18 Test Reason : SERIES EKG Blood Pressure : / mmHG Vent. Rate : 074 BPM Atrial Rate : 074 BPM P-R Int : 142 ms QRS Dur : 094 ms QT Int : 472 ms P-R-T Axes : 068 047 038 degrees QTc Int : 523 ms Normal sinus rhythm T wave abnormality, consider anterolateral ischemia Prolonged QT Abnormal ECG When compared with ECG of 05-MAR-2018 14:21, MANUAL COMPARISON REQUIRED, DATA IS UNCONFIRMED Confirmed by TANK HERNANDEZ MD ([id number]), web content editor GOPI RAMIREZ ([id number]) on 03/08/2018 3:26:24 PM Referred By: ARTUR Confirmed By:TANK HERNANDEZ MD 03/08/18 1526 Date Tank Hernandez MD CC: Arielle Hensley; Thai Collado DO; Patel Veliz MD Signed 12 LEAD ELECTROCARDIOGRAM Observed: 03/08/2018 Status: F Source: [place] 3:24 PM [facility] REPOSITORY [facility] Cardiovascular Services [address] [place] [address] 12 Lead EKG 03/06/18 0556 MR#: [id number] Acct: [id number] Name: XANDER RAMIREZ Rep #: [id number] : 1950 67 From: Tank Hernandez MD Attending Dr: Thai Collado DO Status: DIS IN Ordering Dr: Arielle Hensley Date: 03/06/18 Location: [facility] Sex: F C Admitted: 03/05/18 Test Reason : AM EKG Blood Pressure : / mmHG Vent. Rate : 060 BPM Atrial Rate : 060 BPM P-R Int : 152 ms QRS Dur : 098 ms QT Int : 472 ms P-R-T Axes : 065 043 037 degrees QTc Int : 472 ms Normal sinus rhythm T wave abnormality, consider anterior ischemia Prolonged QT Abnormal ECG When compared with ECG of 05-MAR-2018 17:48, MANUAL COMPARISON REQUIRED, DATA IS UNCONFIRMED Confirmed by TANK HERNANDEZ MD ([id number]), web content editor GOPI RAMIREZ ([id number]) on 03/08/2018 3:23:45 PM Referred By: DR HENSLEY Confirmed By:TANK HERNANDEZ MD 03/08/18 1523 Date Tank Hernandez MD CC: Arielle Hensley; Thai Collado DO; Patel Veliz MD Signed 12 LEAD ELECTROCARDIOGRAM Observed: 03/08/2018 Status: F Source: [place] 2:38 PM [facility] REPOSITORY [facility] Cardiovascular Services [address] [place] [address] 12 Lead EKG 03/05/18 1421 MR#: [id number] Acct: [id number] Name: XANDER RAMIREZ Rep #: [id number] : 1950 67 From: Saulo Moss MD Attending Dr: Thai Collado DO Status: DIS IN Ordering Dr: Francis Carr MD Date: 03/05/18 Location: [facility] Sex: F C Admitted: 03/05/18 Test Reason : Blood Pressure : / mmHG Vent. Rate : 083 BPM Atrial Rate : 083 BPM P-R Int : 148 ms QRS Dur : 100 ms QT Int : 350 ms P-R-T Axes : 070 044 -27 degrees QTc Int : 411 ms Normal sinus rhythm Poor R wave progression Nonspecific T wave abnormality Abnormal ECG Confirmed by JAMES ELACH, SAULO ([id number]), web content editor GOPI RAMIREZ ([id number]) on 03/08/2018 2:37:54 PM Referred By: APRIL Confirmed By:SAULO MOSS MD 03/08/18 1437 Date Saulo Moss MD CC: MD Bryan Carr; Thai Veliz MD Signed DISCHARGE INSTRUCTION Observed: 03/07/2018 Status: F Source: [place] 4:26 PM [facility] REPOSITORY [facility] Medical Records Department [address] [place] [address] Instructions for Home/Discharge Instructions 03/07/18 1621 MR#: [id number] Acct: [id number] Name: FLORESITA RAMIREZShauna Mary Rep #: [id number] : 1950 67 From: Thai Collado DO PCP: Patel Veliz MD, Chi Status: ADM IN ADDENDUM by Thai Collado DO on 03/07/18 at [address] Hernandez in 4-6 weeks. Date Thai Collado DO cc: Patel Veliz MD * Signed - Discharge Diagnoses Current Active Problems: Current Active and Chronic Problems (Last Reviewed 02/07/18 @ 14:36 by Crystal Ibanez) Viral illness (Acute) Cardiac enzymes elevated (Acute) Tobacco use (Chronic) You will use the following diet at home:: Cardiac Your food should be the consistency of: Regular Your liquids should be the consistency of: Regular/Thin Discharge Activity: Return to Normal Activity Call your doctor if you observe: Fever of 101 or Higher, Shortness of breath, Chest pain Allergies/Adverse Reactions: Allergies Penicillins Allergy (Verified 03/05/18 13:59) Anaphylaxis codeine Adverse Reaction (Verified 03/05/18 13:59) Nausea Medications to take at Discharge Albuterol Aerosols [Ventolin Aerosols] 2.5 mg INHALATION Q4H PRN 05/12/16 Alendronate Sodium [Fosamax] 70 mg PO FR 05/12/16 Calcium Carbonate/Vitamin D3 [Oyster Shell 500-Vit D3 200 Tb] 1 ea PO DAILY 05/12/16 Etodolac 400 mg PO BID 05/12/16 Fluticasone/Salmeterol [Advair 250/50 Mcg Diskus] 2 puff INHALATION BID 05/12/16 Gabapentin [Neurontin] 300 mg PO BID 05/12/16 Phenytoin Na [Dilantin] 100 mg PO 4X/DAY 05/12/16 Ropinirole HCl [Requip] 2 mg PO QHS 05/12/16 Tolterodine Tartrate [Detrol LA] 4 mg PO QHS 05/12/16 Temazepam [Restoril] 30 mg PO QHS 06/24/17 Mirtazapine [Remeron] 15 mg PO QHS 07/03/17 Latanoprost 0.005% [Xalatan Opthalmic] 1 drp EACH EYE QHS 07/04/17 Furosemide [Lasix] 40 mg PO DAILY 09/04/17 Methadone HCl 10 mg PO TID 09/04/17 Amlodipine [Norvasc] 2.5 mg PO DAILY 11/07/17 Clotrimazole [Lotrimin] 1 applicatio TOPICAL BID PRN PRN 11/07/17 Ergocalciferol [Vitamin D] 50,000 units PO MO 11/07/17 Phenobarbital 32.4 mg PO TID 11/07/17 Potassium Chloride [K-Dur] 20 meq PO DAILY 11/07/17 Pravastatin [Pravachol] 40 mg PO QHS 11/07/17 Ranitidine [Zantac] 300 mg PO DAILY 11/07/17 buPROPion SR [Wellbutrin SR (150mg tablets)] 150 mg PO BID 11/07/17 Cyclobenzaprine [Flexeril] 10 mg PO TID PRN #20 tab 12/20/17 Acetaminophen [Tylenol Tablet] 650 mg PO Q6H PRN PRN tablet 03/07/18 Aspirin [Aspirin, Baby] 81 mg PO DAILY@0800 tab.chew 03/07/18 Metoprolol Tartrate 25 mg PO BID #60 tab 03/07/18 Potassium Chloride [K-Dur] 10 meq PO DAILY #30 tab 03/07/18 The following prescriptions were given: Potassium Chloride [K-Dur] 10 meq PO DAILY #30 tab Metoprolol Tartrate 25 mg PO BID #60 tab Primary Care Physician: Patel Veliz Chi, MD [Primary Care Provider] - Within 2 Weeks Test Results: Test results from this visit will be discussed in further detail at your follow-up appointment, if applicable. Please Follow Up With: Patel Veliz Chi, MD Proposed Discharge Date: 03/07/18 03/07/181621 <Electronically signed by Thai Collado DO> Date Thai Collado DO CC: Patel Veliz MD DISCHARGE SUMMARY Observed: 03/07/2018 Status: F Source: [place] 4:25 PM [facility] REPOSITORY [facility] Medical Records Department [address] [place] [address] [place] [address] Discharge Summary 03/07/181621 MR#: [id number] Acct: [id number] Name: XANDER RAMIREZ Rep #: [id number] : 1950 67 From: Thai Collado DO PCP: Jose Alfredo LEACH,Patel Garvey Status: ADM IN Y Location: [place] [address] Discharge Date and Diagnosis - Problem List Patient Problems: Active and Suspected Problems (Last Reviewed 02/07/18 @ 14:36 by Crystal Ibanez) SIRS (systemic inflammatory response syndrome) (Acute) Viral illness (Acute) Cardiac enzymes elevated (Acute) Date of Admission: 03/05/18 Date of Discharge: 03/07/18 - Primary Discharge Diagnosis Active and Suspected Problems (Last Reviewed 02/07/18 @ 14:36 by Crystal Ibanez) SIRS (systemic inflammatory response syndrome) (Acute) Viral illness (Acute) Cardiac enzymes elevated (Acute) - Secondary Discharge Diagnosis Chronic Problems (Last Reviewed 02/07/18 @ 14:36 by Crystal Ibanez) Tobacco use (Chronic) Generalized weakness (Chronic) Debility (Chronic) Depression (Chronic) Insomnia (Chronic) She takes Temazepam every night for sleep, prescribed by Dr. Veliz Hypertension (Chronic) Physical debility (Chronic) Degenerative disc disease, lumbar (Chronic) Pain, chronic (Chronic) Seizure disorder (Chronic) Restless leg syndrome (Chronic) COPD (chronic obstructive pulmonary disease) (Chronic) 1 ppd now smoker 4 ppd Obstructive sleep apnea (Chronic) non-compliant with CPAP but has oxygen to wear at night Smokes with greater than 40 pack year history (Chronic) Hospital Course and Treatment Imaging Results: Clinical Impression(s) from Imaging Studies Chest X-Ray 03/05/18 14:08 IMPRESSION: Stable examination demonstrating no acute cardiopulmonary process. Electronically Signed: Elsie Umaña MD at 15:33 EDT Tel , Service support , Brain CT 03/05/18 14:15 IMPRESSION: Chronic involutional changes of the brain. Electronically Signed: Ang Mazariegos MD at 15:29 EDT , Service support , Operations: None Procedures: 2-D Echocardiogram, Stress test Summary of Care Provided: The patient is a 67 year old F presents with SIRS. 1. Systemic inflammatory response syndrome Present on arrival Infectious workup has been negative, likely viral. Fever is resolved stable off abx. 2. Elevated troponin of unclear etiology We will add aspirin and high intensity statin discontinue Lovenox Stress test negative Start Metoprolol Follow up with cardiology as outpt. Type 2 event from SIRS 3. Chronic pain Patient did have decreased respiratory rate today. I talked the patient about concern for overdose even if unintentional. Patient was dismissive of that notion as she has been on methadone for some period of time. I told her that while she is under my care will be judicious about narcotics and its are demonstrated risk for her. I told her that I will resume her methadone but at a reduced dose of 5 mg 3 times daily and only as needed not scheduled Patient may follow-up with Dr. Andujar as outpt No new events today, so will resume Methadone 10mg TID[] Discharge Diet: Low fat/ Low Cholesterol Discharge Activity: Return to Normal Activity Call your doctor if you observe: Fever of 101 or Higher, Shortness of breath, Chest pain Home Medications: Medications to take at Discharge Albuterol Aerosols [Ventolin Aerosols] 2.5 mg INHALATION Q4H PRN 05/12/16 Alendronate Sodium [Fosamax] 70 mg PO FR 05/12/16 Calcium Carbonate/Vitamin D3 [Oyster Shell 500-Vit D3 200 Tb] 1 ea PO DAILY 05/12/16 Etodolac 400 mg PO BID 05/12/16 Fluticasone/Salmeterol [Advair 250/50 Mcg Diskus] 2 puff INHALATION BID 05/12/16 Gabapentin [Neurontin] 300 mg PO BID 05/12/16 Phenytoin Na [Dilantin] 100 mg PO 4X/DAY 05/12/16 Ropinirole HCl [Requip] 2 mg PO QHS 05/12/16 Tolterodine Tartrate [Detrol LA] 4 mg PO QHS 05/12/16 Temazepam [Restoril] 30 mg PO QHS 06/24/17 Mirtazapine [Remeron] 15 mg PO QHS 07/03/17 Latanoprost 0.005% [Xalatan Opthalmic] 1 drp EACH EYE QHS 07/04/17 Furosemide [Lasix] 40 mg PO DAILY 09/04/17 Methadone HCl 10 mg PO TID 09/04/17 Amlodipine [Norvasc] 2.5 mg PO DAILY 11/07/17 Clotrimazole [Lotrimin] 1 applicatio TOPICAL BID PRN PRN 11/07/17 Ergocalciferol [Vitamin D] 50,000 units PO MO 11/07/17 Phenobarbital 32.4 mg PO TID 11/07/17 Potassium Chloride [K-Dur] 20 meq PO DAILY 11/07/17 Pravastatin [Pravachol] 40 mg PO QHS 11/07/17 Ranitidine [Zantac] 300 mg PO DAILY 11/07/17 buPROPion SR [Wellbutrin SR (150mg tablets)] 150 mg PO BID 11/07/17 Cyclobenzaprine [Flexeril] 10 mg PO TID PRN #20 tab 12/20/17 Acetaminophen [Tylenol Tablet] 650 mg PO Q6H PRN PRN tablet 03/07/18 Aspirin [Aspirin, Baby] 81 mg PO DAILY@0800 tab.chew 03/07/18 Metoprolol Tartrate 25 mg PO BID #60 tab 03/07/18 Potassium Chloride [K-Dur] 10 meq PO DAILY #30 tab 03/07/18 Following Prescrptions Were Given to Patient: Potassium Chloride [K-Dur] 10 meq PO DAILY #30 tab Metoprolol Tartrate 25 mg PO BID #60 tab Primary Care Physician: Patel Veliz Chi, MD [Primary Care Provider] - Within 2 Weeks Please Follow Up With: Patel Veliz Chi, MD Please Follow Up With: Tank Hernandez MD When: 4-6 weeks Disposition: Home with Home Health Minutes spent on discharge:: 32 Patient Condition:: Fair Medical Necessity - Tobacco Use Smoking Status: Current every day smoker Tobacco Use: Cigarettes Meaningful Use Info Meaningful Use Diagnoses (Choose all that apply): None applicable Code Visit Inpatient E AND M: 04264 Disch Hosp 03/07/18 1625 <Electronically signed by Thai Collado DO> Date Thai Collado DO Cosigner Signature (if applicable): Date CC: Thai Collado DO; Patel Veliz MD Signed STRESS REPORT Observed: 03/07/2018 Status: F Source: [place] 11:16 AM [facility] REPOSITORY [facility] Cardiovascular Services [address] [place] [address] MR#: [id number] Acct: [id number] Name: XANDER RAMIREZ Rep #: [id number] : 1950 67 From: Saulo Moss MD Primary Care: Patel Veliz MD, Chi Status: ADM IN Ordering Dr: Sex: Kate C Stress Test Report Date: 03/07/2018 Procedure: Pharmacologic stress nuclear imaging study Indications: Chest pain Consent: Per the patient Procedure: The patient underwent pharmacologic (Regadenoson) evaluation with a peak heart rate of 109 beats per minute (71 predicted maximal heart rate) and a peak blood pressure of 134/84 mmHg. The baseline ECG demonstrated normal sinus rhythm; nonspecific ST/T-wave abnormality. The peak pharmacologic ECG demonstrated no obvious ECG changes. There were no cardiac dysrhythmias pretest, during pharmacologic infusion, or recovery. There was no complaint of chest discomfort during pharmacologic infusion or recovery. The examination was discontinued secondary to completion of protocol. Impression: 1. Pharmacologic (Regadenoson) evaluation 2. Peak pharmacologic ECG with obvious ECG changes. 3. No cardiac dysrhythmias pretest, during pharmacologic infusion, or recovery 4. Nuclear images pending Myocardial perfusion imaging study: Technique: The patient was injected with 11.8 millicuries of technetium 99m Cardiolite and subsequently rest SPECT Cardiolite nuclear imaging was obtained in the horizontal long, vertical long, and short axis views. The patient underwent pharmacologic (Regadenoson) evaluation with a peak heart rate of 109 beats per minute (71 % percent predicted maximal heart rate) and a peak blood pressure of 134/84 mmHg. The patient was injected with 32.2 millicuries of technetium 99m Cardiolite and subsequently stress SPECT Cardiolite nuclear imaging was obtained in the horizontal long, vertical long, and short axis views. A gated Cardiolite study at peak stress was obtained. Interpretation: Rest and stress SPECT Cardiolite nuclear imaging status post realignment, normalization, and attenuation correction demonstrate an area of diminished tracer uptake in the apical segments without significant change between rest and stress. There is end systolic thickening and brightening. The gated Cardiolite study demonstrates myocardial thickening and inward wall motion. The reported LVEF is 70 %. Impression: 1. Rest and stress SPECT Cardiolite nuclear imaging demonstrate an area of diminished tracer uptake in the apical segments without significant change between rest and stress appearing compatible with physiologic apical thinning with no myocardial perfusion changes considered diagnostic for associated stress-induced myocardial ischemia. 2. The gated Cardiolite study reports an LVEF of 70 %. This note was generated with [employer] software. It may contain incorrect words, spelling, and punctuation that were not noted in checking the note before signing. 03/07/181115 <Electronically signed by Saulo Moss MD> Date Saulo Moss MD CC: Thai Collado DO; Patel Veliz MD Date Dictated: 03/07/181111 Date Transcribed: 03/07/181111 Extraction Operator: PM Signed CBC W/DIFF, AUTOMATED Collected: 03/07/2018 Status: F Source: [place] 6:00 AM [facility] REPOSITORY TYPE CODE TESTS RESULT OUT OF RANGE REFERENCE UNITS LAB L100.1000 4.4-11.0 K/mm3 Normal WBC 8.2 LAB L100.1200 4.2-5.4 M/mm3 Low RBC 4.00 LAB L100.1300 12.0-15.0 g/dl Normal HGB 12.4 LAB L100.1400 37-47 % Normal HCT 38.0 LAB L100.1500 81-99 fL Normal MCV 95.0 LAB L100.1600 27.0-32.0 pg Normal MCH 31.0 LAB L100.1700 32-36 g/gl Normal MCHC 32.6 LAB L100.1810 11.6-14.6 % Normal RDW CV 14.4 LAB L100.1820 35.1-43.9 fl High RDW SD 48.1 LAB L100.1900 150-450 K/mm3 Normal PLT 171 LAB L100.2000 6.2-12.0 fl Normal MPV 10.2 LAB L100.2100 47-70 % Normal NEUT% 62.6 LAB L100.2200 19-41 % Normal LY% 24.3 LAB L100.2300 0-10 % Normal MONO% 10.0 LAB L100.2400 0-5 % Normal EO% 2.3 LAB L100.2500 0-1 % Normal BASO% 0.7 LAB L100.2550 0.0-0.9 % Normal IM GRAN % 0.100 Result Comment: IG% - Immature Granulocytes (promyelocytes, myelocytes and metamyelocytes) > 1% indicates that a LEFT SHIFT is Present. LAB L100.2620 2.0-7.7 X10 3/uL Normal Absolute Neut 5.2 LAB L100.2720 0.83-4.51 X10 3/ul Normal Absolute Lymph 2.00 Performed By: #### L100.0100 #### [facility] [address] [place], [address] PROTHROMBIN TIME W/INR Collected: 03/07/2018 Status: F Source: [place] 6:00 AM [facility] REPOSITORY TYPE CODE TESTS RESULT OUT OF RANGE REFERENCE UNITS LAB L300.4150 11.7-14.9 SECONDS Normal PROTIME 14.2 LAB L300.4200 Normal INR 1.1 Performed By: #### L300.3900, L300.4310 #### [facility] [address] [place], [address] PARTIAL THROMBOPLAST Collected: 03/07/2018 Status: F Source: [place] TIME 6:00 AM [facility] REPOSITORY TYPE CODE TESTS RESULT OUT OF RANGE REFERENCE UNITS LAB L300.4310 24.1-36.2 Seconds Normal PTT 32.0 Performed By: #### L300.3900, L300.4310 #### [facility] [address] [place], [address] BASIC METABOLIC Collected: 03/07/2018 Status: F Source: [place] PROFILE (BMP) 6:00 AM [facility] REPOSITORY TYPE CODE TESTS RESULT OUT OF RANGE REFERENCE UNITS LAB L501.0100 74-106 mg/dL High GLU 115 Result Comment: Fasting Glucose result from 100 to 125 mg/dL suggests IMPAIRED HOMEOSTASIS per A.D.A. criteria. Please note revised GLUCOSE reference range effective 2017. LAB L501.1000 7-18 mg/dL Normal BUN 18 LAB L501.1100 0.55-1.02 mg/dL Normal CREAT,SERUM 0.66 Result Comment: The validity of the calculated GFR AND GFRAA in patients over 70 years has not been determined. Clinical correlation is essential. LAB L501.1110 >60 mL/min Normal EST GFR 94 Result Comment: Non- GFR Calc LAB L501.1115 >60 mL/min Normal EST GFR - AA 113 Result Comment: GFR Calc LAB L501.1255 ml/min Normal Estimated CRCL 48.45 LAB L501.1300 10-20 RATIO High BUN/CRE 27.1 LAB L501.2200 8.5-10 mg/dL Low .1 CA 7.8 LAB L501.5300 136-14 mmol/L Normal 5 NA 145 LAB L501.5600 3.5-5. mmol/L Low 1 K 3.2 LAB L501.5900 98-107 mmol/L High CL 110 LAB L501.6100 21.0-3 mmol/L Normal 2.0 CO2 26.0 LAB L501.6200 5-15 Normal GAP 9 Performed By: #### L500.2500 #### [facility] [address] [facility] [place], [address] CPK TOTAL, CREATINE Collected: 03/06/2018 Status: F Source: [place] KINASE 4:08 PM [facility] REPOSITORY TYPE CODE TESTS RESULT OUT OF RANGE REFERENCE UNITS LAB L501.3620 26-192 U/L Normal CPK TOTAL 137 Performed By: #### L501.3620 #### [facility] [address] [place], [address] ECHOCARDIOGRAM COMPLETE Observed: 03/06/2018 Status: F Source: [place] 2:01 PM [facility] REPOSITORY [facility] Cardiovascular Services [address] [place] [address] [place] [address] Echo Complete 03/06/18 1004 MR#: [id number] Acct: [id number] Name: XANDER RAMIREZ Rep #: [id number] : 1950 67 From: Tank Hernandez MD Attending Dr: Thai Collado DO Status: ADM IN Ordering Dr: Arielle Hensley Date: 03/05/18 Location: [facility] Sex: F C Admitted: 03/05/18 Reason For Study: chest pain Procedure This was a 2D Doppler, Color Flow transthoracic echocardiogram. Exam performed portable in patient room. Left Ventricle Normal LV size. Left ventricular systolic function is normal. The estimated ejection fraction is 60 %. No evidence for diastolic dysfunction. No regional wall motion abnormalities noted. Right Ventricle Normal RV size. Normal systolic function. Atria Normal left atrium. Normal right atrium. Mitral Valve Normal mitral valve. Tricuspid Valve Normal tricuspid valve. Mild tricuspid valve insufficiency. Pulmonary artery systolic pressure is 34 mmHg. Aortic Valve Normal aortic valve. Trisinus/trileaflet aortic valve. Pulmonic Valve Normal pulmonic valve. Great Vessels Normal aortic root. The pulmonary artery is normal size. Normal inferior vena cava. Pericardium/Pleural No pericardial effusion. MMode/2D Measurements AND Calculations LVIDd: 4.7 cm IVSd: 1.0 cm Ao root diam: 3.1 cm LVIDs: 2.6 cm LVPWd: 1.3 cm LA dimension: 3.7 cm RVDd: 2.7 cm FS: 45.3 % LAV(MOD-bp): 48.4 ml LA A4 area: 15.3 cm2 RA A4 area: 13.7 cm2 LAV(MOD-bp) Indexed: 27.4 ml/m2 LAV(MOD-sp2): 57.7 ml LAV(MOD-sp4): 38.9 ml Doppler Measurements AND Calculations MV E max alon: 78.0 cm/sec Lat Peak E' Alon: 8.3 cm/sec Med Peak E' Alon: 7.3 cm/sec MV A max alon: 62.4 cm/sec E/E' lat: 9.4 E/E' med: 10.7 MV E/A: 1.3 Ao V2 max: 160.0 cm/sec LV V1 max: 109.4 cm/sec PA V2 max: 116.4 cm/sec Ao max P.2 mmHg LV V1 max P.8 mmHg TR max alon: 270.1 cm/sec TR max P.3 mmHg Interpretation Summary Normal LV size. Left ventricular systolic function is normal. The estimated ejection fraction is 60 %. No evidence for diastolic dysfunction. Mild tricuspid valve insufficiency. Ordering Physician: Arielle Hensley Referring Physician: Patel Veliz Chi Performed By: Maria Del Rosario Castellon, GREGORIO, RVT 03/06/18 1401 Date Tank Hernandez MD CC: Arielle Hensley; Thai Collado DO; Patel eVliz MD Date Dictated: 03/06/18 1004 Date Transcribed: 03/06/18 1401 Extraction Operator: Signed CBC-COMPLETE BLOOD CNT Collected: 03/06/2018 Status: F Source: [place] NO DIFF 6:15 AM [facility] REPOSITORY TYPE CODE TESTS RESULT OUT OF RANGE REFERENCE UNITS LAB L100.1000 4.4-11.0 K/mm3 Normal WBC 7.6 LAB L100.1200 4.2-5.4 M/mm3 Low RBC 3.91 LAB L100.1300 12.0-15.0 g/dl Normal HGB 12.2 LAB L100.1400 37-47 % Normal HCT 37.2 LAB L100.1500 81-99 fL Normal MCV 95.1 LAB L100.1600 27.0-32.0 pg Normal MCH 31.2 LAB L100.1700 32-36 g/gl Normal MCHC 32.8 LAB L100.1810 11.6-14.6 % Normal RDW CV 14.4 LAB L100.1820 35.1-43.9 fl High RDW SD 48.7 LAB L100.1900 150-450 K/mm3 Normal PLT 194 LAB L100.2000 6.2-12.0 fl Normal MPV 10.0 Performed By: #### L100.0500 #### [facility] [address] [place], [address] COMPREHENSIVE METABOLIC Collected: 03/06/2018 Status: F Source: [place] PROFIL 6:15 AM [facility] REPOSITORY TYPE CODE TESTS RESULT OUT OF RANGE REFERENCE UNITS LAB L501.0100 74-106 mg/dL Normal GLU 79 Result Comment: Please note revised GLUCOSE reference range effective 2017. LAB L501.1000 7-18 mg/dL Normal BUN 18 LAB L501.1100 0.55-1.02 mg/dL Normal CREAT,SERUM 0.55 Result Comment: The validity of the calculated GFR AND GFRAA in patients over 70 years has not been determined. Clinical correlation is essential. LAB L501.1110 >60 mL/min Normal EST GFR 116 Result Comment: Non- GFR Calc LAB L501.1115 >60 mL/min Normal EST GFR - AA 140 Result Comment: GFR Calc LAB L501.1255 ml/min Normal Estimated CRCL 48.45 LAB L501.1300 10-20 RATIO High BUN/CRE 32.5 LAB L501.1500 6.4-8. g/dL Low 2 T PROT 6.0 LAB L501.1800 3.2-5. g/dL Low 0 ALB 2.9 LAB L501.1950 2.2-4. g/dL Normal 2 GLOB 3.1 LAB L501.2000 0.9-2. RATIO Normal 4 A/G 0.9 LAB L501.2200 8.5-10 mg/dL Low .1 CA 7.4 LAB L501.4100 15-37 U/L Normal AST 22 LAB L501.4305 45-117 U/L Normal ALK P 54 LAB L501.4405 13-56 U/L Normal ALT 33 LAB L501.4600 0.20-1 mg/dL Normal .00 T BILI 0.40 LAB L501.5300 136-14 mmol/L Normal 5 NA 143 LAB L501.5600 3.5-5. mmol/L Normal 1 K 4.0 LAB L501.5900 98-107 mmol/L High CL 110 LAB L501.6100 21.0-3 mmol/L Normal 2.0 CO2 25.0 LAB L501.6200 5-15 Normal GAP 8 Performed By: #### L500.4050, L500.4100 #### [facility] [address] [place], [address] LIPID PROFILE Collected: 03/06/2018 Status: F Source: [place] 6:15 AM [facility] REPOSITORY TYPE CODE TESTS RESULT OUT OF RANGE REFERENCE UNITS LAB L501.4900 200 mg/dL Normal CHOL 139 Result Comment: <200 mg/dL Desirable 200-240 mg/dL Borderline >240 mg/dL High Risk LAB L501.5000 mg/dL Normal TRIG 156 Result Comment: The drugs N-Acetylcysteine and Metamizole may falsely depress this assay. Serum Triglycerides Reference Interval Normal <150 mg/dL Borderline high 150 - 199 mg/dL High 200 - 499 mg/dL Very High > or = 500 mg/dL LAB L501.6400 mg/dL Normal HDL 48 Result Comment: The drugs N-Acetylcysteine and Metamizole may falsely depress this assay. Reference Range HDL <40 mg/dL Low HDL Cholesterol HDL >or= 60 mg/dL High HDL Cholesterol LAB L501.6500 0-130 mg/dL Normal LDL 60 LAB L501.6600 5-40 mg/dL Normal VLDL 31 Performed By: #### L500.4050, L500.4100 #### [facility] [address] [place], [address] TROPONIN-I Collected: 03/05/2018 Status: F Source: [place] 9:13 PM [facility] REPOSITORY Order Comment: 'TROP' Serial specimen #1, #2 or #3: 3 TYPE CODE TESTS RESULT OUT OF RANGE REFERENCE UNITS LAB L501.4010 <0.045 ng/mL High 0.220 TROPONIN-I Result Comment: TROPONIN-I EXPECTED VALUES <0.045 Negative 0.045 - 0.590 Consistent with Cardiac Damage > OR = 0.600 Critical Value Not every elevated troponin is indicative of DE. These values should be used with clinical judgement in examining the patient's clinical picture for diagnosis. To establish a diagnosis of DE versus myocardial injury, there must be a demonstrated rise and/or fall in the troponin values, in addition to ischemic symptoms, EKG changes, new regional wall motion abnormality, and/or angiographical evidence. PLEASE NOTE: REFERENCE RANGES EDITED 17 Performed By: #### L501.4010 #### [facility] [address] [facility] [place], [address] Observed: 03/05/2018 Status: F Source: [place] RESPIRATORY PANEL 8:30 PM [facility] MOLECULAR REPOSITORY Order Date: 03/05/18 Has pt arrived? Y RP PANEL ADENOVIRUS Not Detected HUMAN METAPHNEUMO Not Detected INFLUENZA A Not Detected INFLUENZA A (SUBTYPE H1) Not Detected INFLUENZA A (SUBTYPE H3) Not Detected INFLUENZA B Not Detected PARAINFLUENZA 1 Not Detected PARAINFLUENZA 2 Not Detected PARAINFLUENZA 3 Not Detected PARAINFLUENZA 4 Not Detected RHINOVIRUS Not Detected RSV A Not Detected RSV B Not Detected NAAT METHOD Testing was performed using nucleic acid amplification Performed By: #### M100.638 #### [facility] [address] [facility] [place], [address] TROPONIN-I Collected: 03/05/2018 Status: F Source: [place] 6:01 PM [facility] REPOSITORY Order Comment: 'TROP' Serial specimen #1, #2 or #3: 2 TYPE CODE TESTS RESULT OUT OF RANGE REFERENCE UNITS LAB L501.4010 <0.045 ng/mL High 0.250 TROPONIN-I Result Comment: TROPONIN-I EXPECTED VALUES <0.045 Negative 0.045 - 0.590 Consistent with Cardiac Damage > OR = 0.600 Critical Value Not every elevated troponin is indicative of DE. These values should be used with clinical judgement in examining the patient's clinical picture for diagnosis. To establish a diagnosis of DE versus myocardial injury, there must be a demonstrated rise and/or fall in the troponin values, in addition to ischemic symptoms, EKG changes, new regional wall motion abnormality, and/or angiographical evidence. PLEASE NOTE: REFERENCE RANGES EDITED 17 Performed By: #### L501.4010 #### [facility] [address] [place], [address] HISTORY AND PHYSICAL Observed: 03/05/2018 Status: F Source: [place] EXAM 4:47 PM [facility] REPOSITORY [facility] Medical Records Department [address] [place] [address] History and Physical 03/05/18 1628 MR#: [id number] Acct: [id number] Name: XANDER RAMIREZ Rep #: [id number] : 1950 67 From: Arielle Hensley PCP: Jose Alfredo LEACH,Patel Chi Status: ADM IN Location: [place] [address] Problem List (1) Viral illness Status: Acute (2) Cardiac enzymes elevated Status: Acute (3) Tobacco use Status: Chronic (4) Insomnia Status: Chronic Qualifiers: Insomnia type: unspecified Qualified Code(s): G47.00 - Insomnia, unspecified Comment: She takes Temazepam every night for sleep, prescribed by Dr. Veliz (5) Hypertension Status: Chronic Qualifiers: Hypertension type: essential hypertension Qualified Code(s): I10 - Essential (primary) hypertension (6) Degenerative disc disease, lumbar Status: Chronic (7) Pain, chronic Status: Chronic Qualifiers: Chronic pain type: chronic pain syndrome Qualified Code(s): G89.4 - Chronic pain syndrome (8) Seizure disorder Status: Chronic (9) Restless leg syndrome Status: Chronic (10) COPD (chronic obstructive pulmonary disease) Status: Chronic Qualifiers: COPD type: unspecified COPD Qualified Code(s): J44.9 - Chronic obstructive pulmonary disease, unspecified Comment: 1 ppd now smoker 4 ppd (11) Obstructive sleep apnea Status: Chronic Comment: non-compliant with CPAP but has oxygen to wear at night History of Present Illness Date of Admission: 03/05/18 Chief Complaint: Body aches, Fever, Chills, Arthralgia, Headache The patient is a 67 y/o F w/ PMHx: Seizure disorder, Restless leg, CHUY noncompliant with CPAP, Chronic Hypoxic Respiratory Failure (2L NC q HS only), Tobacco use, Chronic COPD, Chronic pain syndrome, Hypertension, Anxiety and Depression/Insomnia who [facility] with history of onset whole body aches, arthralgias, fever, chills, throbbing bilateral temporal headache starting at approximately noon with general malaise and fatigue with no recent ill contacts. In the ED workup included T102.3, heart rate 93, BP 139/77, respiratory rate 18, 86% on room air, CBC with WBCs 8.5, hemoglobin 14.1, platelet 242 without market left shift, BMP with potassium 3.3, glucose 133, lactic acid 1.3, troponin 0 0.290, BNP 181.1, CT head with no acute findings, chest x-ray with chronic changes and no acute findings. 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 Discussed patient w/ the ED physician and given these acute findings with sudden onset requested respiratory viral panel with suspected possible flu. Past Medical History Past Medical History (Chronic Problems): Chronic Problems (Last Reviewed 02/07/18 @ 14:36 by Crystal Ibanez) Tobacco use (Chronic) Generalized weakness (Chronic) Debility (Chronic) Depression (Chronic) Insomnia (Chronic) She takes Temazepam every night for sleep, prescribed by Dr. Veliz Hypertension (Chronic) Physical debility (Chronic) Degenerative disc disease, lumbar (Chronic) Pain, chronic (Chronic) Seizure disorder (Chronic) Restless leg syndrome (Chronic) COPD (chronic obstructive pulmonary disease) (Chronic) 1 ppd now smoker 4 ppd Obstructive sleep apnea (Chronic) non-compliant with CPAP but has oxygen to wear at night Smokes with greater than 40 pack year history (Chronic) Medical History: Medical History (Last Reviewed 02/07/18 @ 14:36 by Crystal Ibanez) Acidosis (Acute) E87.2 Generalized weakness (Chronic) R53.1 Debility (Chronic) R53.81 Acute and chronic respiratory failure with hypoxia (Acute) J96.21 Nicotine abuse (Acute) Z72.0 Acute respiratory failure with hypercapnia (Acute) J96.02 Acute respiratory failure with hypoxia and hypercapnia (Acute) J96.01, J96.02 Acute exacerbation of chronic obstructive airways disease (Acute) J44.1 Hypokalemia (Acute) E87.6 Subtherapeutic serum dilantin level (Acute) R78.89 Subtherapeutic phenobarb level (Acute) Depression (Chronic) F32.9 Insomnia (Chronic) G47.00 She takes Temazepam every night for sleep, prescribed by Dr. Veliz Hypertension (Chronic) I10 Fever (Acute) R50.9 Physical debility (Chronic) R53.81 Degenerative disc disease, lumbar (Chronic) M51.36 Pain, chronic (Chronic) G89.29 Seizure disorder (Chronic) G40.909 Restless leg syndrome (Chronic) COPD (chronic obstructive pulmonary disease) (Acute) J44.9 1 ppd now smoker 4 ppd Obstructive sleep apnea (Chronic) G47.33 non-compliant with CPAP but has oxygen to wear at night Smokes with greater than 40 pack year history (Chronic) F17.210 Allergies Penicillins Allergy (Verified 03/05/18 13:59) Anaphylaxis codeine Adverse Reaction (Verified 03/05/18 13:59) Nausea Home Medications: Ambulatory Orders Medication Instructions Recorded Albuterol Aerosols [Ventolin 2.5 mg INHALATION Q4H PRN 05/12/16 Aerosols] Alendronate Sodium [Fosamax] 70 mg PO FR 05/12/16 Surgical History: Surgical History (Last Reviewed 02/07/18 @ 14:36 by Crystal Ibanez) History of right hip replacement (Acute) Z96.641 Broken ankle (Acute) S82.899A S/P laparoscopic cholecystectomy (Acute) Z90.49 S/P appendectomy (Acute) Z90.49 Surgical History: appendectomy, cholecystectomy, - - Fractured right ankle, carpal tunnel surgery, removal of teeth, right ovariectomy and fallopian tube removal. Psychiatric History: Anxiety, Depression - untreated BACK SIZER History: No pertinent BACK SIZER history Lives: Alone Smoking Status: Current every day smoker - 1 ppd ongong. Tobacco Use: Cigarettes Alcohol: None Drugs: None - *Family History Maternal Family History: Family History (Last Updated 02/07/18 @ 14:39 by Crystal Ibanez) Mother Diabetes Heart disease Hypertension CAD (coronary artery disease) CVA (cerebral vascular accident) History Items: Diabetes Paternal Family History: Family History (Last Updated 02/07/18 @ 14:39 by Crystal Ibanez) Mother Diabetes Heart disease Hypertension CAD (coronary artery disease) CVA (cerebral vascular accident) History Items: Cancer - colon Sibling Family History: Family History (Last Updated 02/07/18 @ 14:39 by Crystal Ibanez) Mother Diabetes Heart disease Hypertension CAD (coronary artery disease) CVA (cerebral vascular accident) History Items: No pertinent history Review of Systems Constitutional: Reports: Anorexia, Chills, Fever, Malaise, Weakness, Fatigue. Denies: Weight Change HEENT: Reports: Head Aches. Denies: Sinus Congestion, Sinus Drainage Cardiovascular: Denies: Chest Pain, Palpitations Respiratory: Denies: Cough, Shortness of breath at rest, Sputum production Gastrointestinal: Denies: Abdominal Pain, Nausea, Vomiting Genitourinary: Denies: Dysuria Musculoskeletal: Reports: Joint Tenderness, Muscle pain. Denies: Joint Pain Skin: Denies: Rash, Wounds Neurological: Denies: Numbness, Tingling, Focal weakness Psychiatric: Reports: Anxiety, Depression. Denies: Homicidal Ideations, Suicidal Ideations Hematologic/ Lymphatic: Denies: Easy Bruising, Easy Bleeding VTE Information - Inpt Only VTE Present on Admission: No VTE Mechan Device Prophylaxis: SCD's VTE Pharm Prophylaxis ordered?: Yes Patient Problems: Active and Suspected Problems (Last Reviewed 02/07/18 @ 14:36 by Crystal Ibanez) Viral illness (Acute) Cardiac enzymes elevated (Acute) Subjective: Seated upright in the ED bed, very focal regarding her arthralgias and myalgias. Objective: Physical Examination: General: awake, alert, oriented x 3 and cooperative, seated upright in the ED bed, severe ongoing arthralgia and myalgias. Skin: normal color, turgor, no icterus, cyanosis. HEENT: AT/NC, EOMI, PERRLA, moderately MM, OP w/ mild posterior erythema, no carotid bruits or JVD noted, no facial TTP. Lungs: Diminished BS BL, > bases, mild effort, no rales, ronchi or wheezing. Heart: Regular rate and rhythm; no gallop, rub audible. Abdomen: soft, NTTP, ND, unremarkable BS, no HSM. Extremities: no cyanosis, clubbing, edema. Neurological: patient awake, alert, oriented x 3; cognitive function intact; pupils equally reactive to light and accomodation; cranial nerves II-XII grossly normal, moving all 4 extremities, no focal deficits, strength severely globally decreased secondary to acute presentation, noting ongoing subjective whole body pain, BL restoration SAENZ w/ TTP. Psychiatric: affect appears mildly histrionic, no acute evidence of depressive or anxiety feelings. - Physical Exam Vital Signs Temp Pulse Resp BP Pulse Ox 102.3 F H 80 13 117/63 94 03/05/18 13:57 03/05/18 16:06 03/05/18 16:06 03/05/18 16:06 03/05/18 16:06 Oxygen Delivery Method Room Air Weight: 189 lb Body Mass Index (BMI) 31.4 Laboratory Tests Past 24 Hrs WBC 8.5 RBC 4.67 Hgb 14.1 Hct 43.0 MCV 92.1 MCH 30.2 MCHC 32.8 RDW 14.2 RDW Differential 47.7 H Plt Count 242 WBC RBC Assessment/Plan All Active Problems (Last Reviewed 02/07/18 @ 14:36 by Crystal Ibanez) Viral illness (Acute) Cardiac enzymes elevated (Acute) History of right hip replacement (Acute) Broken ankle (Acute) S/P laparoscopic cholecystectomy (Acute) S/P appendectomy (Acute) Acidosis (Acute) Acute and chronic respiratory failure with hypoxia (Acute) Nicotine abuse (Acute) Acute respiratory failure with hypercapnia (Acute) Acute respiratory failure with hypoxia and hypercapnia (Acute) Acute exacerbation of chronic obstructive airways disease (Acute) Hypokalemia (Acute) Subtherapeutic serum dilantin level (Acute) Subtherapeutic phenobarb level (Acute) Fever (Acute) Fracture of left great toe (Resolved) Frequent falls (Resolved) The patient is a 67 y/o F w/ PMHx: Seizure disorder, Restless leg, CHUY noncompliant with CPAP, Chronic Hypoxic Respiratory Failure (2L NC q HS only), Tobacco use, Chronic COPD, Chronic pain syndrome, Hypertension, Anxiety and Depression/Insomnia who [facility] with history of onset whole body aches, arthralgias, fever, chills, throbbing bilateral temporal headache starting at approximately noon with general malaise and fatigue with no recent ill contacts. (1) General Malaise,Fever, General Debility suspected secondary to Acute Viral Syndrome, Possible Influenza Viral Syndrome: CBC with WBCs 8.5, hemoglobin 14.1, platelet 242 without market left shift, BMP with potassium 3.3, glucose 133, lactic acid 1.3, troponin 0.290, BNP 181.1, CT head with no acute findings, chest x-ray with chronic changes and no acute findings. Bld Cx x 2 obtained in the ED. UA unremarkable. Pending respiratory viral panel. Will admit to PCU as concurrent elevation cardiac enzymes, maintain on oxygen with wean as tolerated, continue ATC duonebs, PRN albuterol, HOB, IS parameters. (2) Indeterminate cardiac enzyme: EKG in ED w/ specific T- wave changes, CXR w/ COPD changes with no acute findings. Trop elevated, 0.290. Will maintain on a monitored bed, continue serial cardiac enzymes and EKGs. Obtain magnesium level upon admission. Administer therapeutic lovenox pending trend and if stable then transition back to prophylactic dose. Continue medical management w/ asa addition, defer BB given severe underlying COPD history, continue home statin w/ AM FLP. ECHO requested. If further elevation may consider Cardiology consultation. Will be out of to have respiratory viral panel returned as may be possible flu prior to considerations for further intervention. ASA, NG, morphine. (3) Chronic COPD w/ Chronic Hypoxic Respiratory Failure: Continue home O2 supplementation q HS, continue ATC duonebs, PRN albuterol, HOB, IS parameters. (4) Tobacco Abuse: Encouraged cessation, inpatient consultation per RT, NR if desired but declined upon presentation. (5) Seizure disorder: Continue home regimen Dilantin and phenobarbital, Dilantin. (6) Chronic Pain Syndrome: Maintain on patient home methadone and gabapentin regimen regimen. (7) Anxiety and Depression: Maintain on home Wellbutrin, Remeron, Restoril regimen although preference would be to avoid usage of to sedate of p.m. regimens but specific note in system per PCP for continuation. (8) HTN: Maintain on home regimen of Norvasc, Lasix, withhold as needed, PRN oral hydralazine. (9) Hyperlipidemia: Continue home statin regimen. AM FLP. (10) CHUY: CPAP q HS. (11) RLS: Maintain on home requip regimen. (12) GERD: Famotidine. (13) DVT Prophylaxis: SCDs, therapeutic lovenox pending cardiac enzyme trend. Code Visit Inpatient E AND M: [id number] Init Hosp L3 03/05/18 1647 <Electronically signed by Arielle Hensley > Date Arielle Hensley Cosigner Signature: Date (if applicable) CC: Arielle Hensley; Patel Veliz MD Signed EMERGENCY DEPARTMENT Observed: 03/05/2018 Status: F Source: [place] SUMMARY 4:08 PM [facility] REPOSITORY [facility] Medical Records Department [address] [place] [id number] Emergency Department Summary 03/05/18 1431 MR#: [id number] Acct: [id number] Name: XANDER RAMIREZ Rep #: [id number] : 1950 67 From: Francis Carr MD PCP: Patel Vleiz MD, Chi Status: REG ER - ER Visit Summary Date of Service: 03/05/18 Chief Complaint: [] Temperature of 102 diffuse body aches History of Present Illness: The patient is a 67 F [] patient reports history of seizure disorder no other past history walks stating she felt fine had breakfast and she developed a fever to 102 at the [facility] [place] and diffuse body aches and headaches and came in for evaluation. She has had no runny nose no change in vision no neck stiffness no cough or chest pain or shortness of breath no abdominal pain normal bowel bladder habits, no skin lesions no obvious exposures, she indicates she is not prone to high fevers this all began suddenly she is eating and drinking well no recent seizures no obvious exposures at the [facility] Physical Examination: [] Pressure is 102.4 she is awake and alert she is complaining of diffuse body aches HEENT exam is unremarkable her nose is dry throat is unremarkable her neck is very supple her lungs are clear heart tones are normal the abdomen soft nontender upper lower extremity skin exam back exam unremarkable she denies urinary symptoms or skin lesions no meningismus no Kernig's or Brudzinski's she is awake and alert answering questions Test Results: [] Emergency Department Course and Treatment: [] Fever of the differential is rather extensive screening labs blood cultures urine cultures UA IV fluids Tylenol The patient's head CT is generally unremarkable as his chest x-ray and labs except her troponin came back at 0.29 she denies chest pain, she is feeling better with regards to the headache and the body aches, she has no flu type symptoms such as runny nose or cough or shortness of breath, again she denies chest pain she indicates she has no history of CAD or DE. The EKG showed a sinus rhythm nonspecific changes no acute injury pattern appreciated, given the lack of obvious source of the fever we will hold on antibiotics blood and urine cultures were sent, given the abnormal troponin however I have asked the hospital see her for further management admission, management as clinically warranted Treatment Plan: [] Disposition: [] Stable admit Impression: [] Febrile illness etiology unclear, abnormal troponin This note was generated with [employer] dictation software. It may contain incorrect words, spelling, and punctuation that were not noted in review of the chart prior to signing ED Disposition - Plan for ED Patient: Chief Complaint: Headache Referrals: Patel Veliz Chi, MD [Primary Care Provider] - What to do if you have Problems For any increased pain, shortness of breath, bleeding, nausea or vomiting, chest pain, or any unexpected problems, contact your Primary Care Provider. Call [facility] ([phone]) or report to the closest Emergency Room. Call 911 if necessary. 03/05/18 8594 <Electronically signed by Francis Carr MD> Date Francis Bruno LEACH Cosigner Signature (If Indicated): Date CC: Patel Veliz MD URINALYSIS, COMPLETE Collected: 03/05/2018 Status: F Source: [place] 3:29 PM [facility] REPOSITORY Order Comment: Order Date: 03/05/18 How was Urine Obtained? JORDAN WORKER TO SPECIFY TYPE CODE TESTS RESULT OUT OF RANGE REFERENCE UNITS LAB L400.3000 Yellow COLOR Normal Yellow LAB L400.3050 Clear Normal CLARITY Clear LAB L400.3200 Normal mg/dl Normal GLUCOSE, UR Normal LAB L400.3300 Negative mg/dL High BILIRUBIN URINE 3 Result Comment: COLOR OF URINE MAY AFFECT DIPSTICK RESULTS. LAB L400.3400 Negative mg/dl High KETONE UR 150 Result Comment: CRITICAL VALUE VERIFIED. CALLED TO MESFIN IN ED 03/05/18 1543 Kenia Kate. RESULTS READ BACK BY SAME . CRITICAL VALUE *H LAB L400.3465 1.002-1.030 Normal SP.GR. DIPSTX 1.020 LAB L400.3550 5.0 - 8.0 pH Normal UR 6.5 LAB L400.3600 Negative mg/dl High 30 PROT DIPSTX LAB L400.3700 Normal mg/dl High 1 UROBILI LAB L400.3750 Negative Normal NITRITE UR Negative LAB L400.3780 Negative /ul High 25 OCCULT BLOOD-UR LAB L400.3800 Negative /ul High 25 LEUK ESTERASE LAB L400.4050 0-5 /hpf Normal WBC 0-5 SEEN LAB L400.4100 0-5 /hpf Normal RBC-UA 0-5 SEEN LAB L400.4150 5-10 /hpf 0 Normal SQUAM EPI SEEN LAB L400.4300 None Seen /hpf 0 Normal BACTERIA SEEN LAB L400.4350 <or=2+ /hpf 3+ Normal MUCUS, URINE Performed By: #### L400.0001 #### [facility] [address] [place], [address] Observed: 03/05/2018 Status: F Source: [place] CULTURE, URINE 3:29 PM [facility] REPOSITORY Order Date: 03/05/18 Urine Culture Culture exhibits no growth. Performed By: #### M100.0650 #### [facility] [address] [place], [address] Observed: 03/05/2018 Status: F Source: [place] CULTURE, BLOOD (WB) 2:51 PM [facility] REPOSITORY BC No growth in 5 days. Performed By: #### M200.1000 #### [facility] [address] [place], [address] BASIC METABOLIC Collected: 03/05/2018 Status: F Source: [place] PROFILE (BMP) 2:50 PM [facility] REPOSITORY TYPE CODE TESTS RESULT OUT OF RANGE REFERENCE UNITS LAB L501.0100 74-106 mg/dL High GLU 133 Result Comment: Fasting Glucose result greater than or equal to 126 mg/dL suggests DIABETES MELLITUS per A.D.A. criteria. Please note revised GLUCOSE reference range effective 2017. LAB L501.1000 7-18 mg/dL Normal BUN 15 LAB L501.1100 0.55-1.02 mg/dL Normal CREAT,SERUM 0.59 Result Comment: The validity of the calculated GFR AND GFRAA in patients over 70 years has not been determined. Clinical correlation is essential. LAB L501.1110 >60 mL/min Normal EST GFR 107 Result Comment: Non- GFR Calc LAB L501.1115 >60 mL/min Normal EST GFR - AA 129 Result Comment: GFR Calc LAB L501.1255 ml/min Normal Estimated CRCL 48.45 LAB L501.1300 10-20 RATIO High BUN/CRE 25.3 LAB L501.2200 8.5-10 mg/dL Normal .1 CA 8.7 LAB L501.5300 136-14 mmol/L Normal 5 NA 139 LAB L501.5600 3.5-5. mmol/L Low 1 K 3.3 LAB L501.5900 98-107 mmol/L Normal CL 102 LAB L501.6100 21.0-3 mmol/L Normal 2.0 CO2 24.0 LAB L501.6200 5-15 Normal GAP 13 Performed By: #### L500.2500, L501.4010 #### [facility] [address] [place], [address] TROPONIN-I Collected: 03/05/2018 Status: F Source: [place] 2:50 PM [facility] REPOSITORY TYPE CODE TESTS RESULT OUT OF RANGE REFERENCE UNITS LAB L501.4010 <0.045 ng/mL High 0.290 TROPONIN-I Result Comment: TROPONIN-I EXPECTED VALUES <0.045 Negative 0.045 - 0.590 Consistent with Cardiac Damage > OR = 0.600 Critical Value Not every elevated troponin is indicative of DE. These values should be used with clinical judgement in examining the patient's clinical picture for diagnosis. To establish a diagnosis of DE versus myocardial injury, there must be a demonstrated rise and/or fall in the troponin values, in addition to ischemic symptoms, EKG changes, new regional wall motion abnormality, and/or angiographical evidence. PLEASE NOTE: REFERENCE RANGES EDITED 17 Performed By: #### L500.2500, L501.4010 #### [facility] [address] [facility] [place], [address] CBC W/DIFF, AUTOMATED Collected: 03/05/2018 Status: F Source: [place] 2:50 PM [facility] REPOSITORY TYPE CODE TESTS RESULT OUT OF RANGE REFERENCE UNITS LAB L100.1000 4.4-11.0 K/mm3 Normal WBC 8.5 LAB L100.1200 4.2-5.4 M/mm3 Normal RBC 4.67 LAB L100.1300 12.0-15.0 g/dl Normal HGB 14.1 LAB L100.1400 37-47 % Normal HCT 43.0 LAB L100.1500 81-99 fL Normal MCV 92.1 LAB L100.1600 27.0-32.0 pg Normal MCH 30.2 LAB L100.1700 32-36 g/gl Normal MCHC 32.8 LAB L100.1810 11.6-14.6 % Normal RDW CV 14.2 LAB L100.1820 35.1-43.9 fl High RDW SD 47.7 LAB L100.1900 150-450 K/mm3 Normal PLT 242 LAB L100.2000 6.2-12.0 fl Normal MPV 10.5 LAB L100.2100 47-70 % High NEUT% 77.3 LAB L100.2200 19-41 % Low LY% 17.0 LAB L100.2300 0-10 % Normal MONO% 5.4 LAB L100.2400 0-5 % Normal EO% 0.0 LAB L100.2500 0-1 % Normal BASO% 0.1 LAB L100.2550 0.0-0.9 % Normal IM GRAN % 0.200 Result Comment: IG% - Immature Granulocytes (promyelocytes, myelocytes and metamyelocytes) > 1% indicates that a LEFT SHIFT is Present. LAB L100.2620 2.0-7.7 X10 3/uL Normal Absolute Neut 6.6 LAB L100.2720 0.83-4.51 X10 3/ul Normal Absolute Lymph 1.44 Performed By: #### L100.0100 #### [facility] [address] [facility]. [place], [place], [address] LACTIC ACID Collected: 03/05/2018 Status: F Source: [place] 2:50 PM [facility] REPOSITORY Order Comment: Yes/No query for Sepsis Lactate Rule Y TYPE CODE TESTS RESULT OUT OF RANGE REFERENCE UNITS LAB L503.6005 0.4-2.0 mmol/L Normal LACTIC ACID 1.3 Performed By: #### L503.6005 #### [facility] [address] [facility]. [place], [place], [address] BNP,B-TYPE NATRIURETIC Collected: 03/05/2018 Status: F Source: [place] PEPTIDE 2:50 PM [facility] REPOSITORY TYPE CODE TESTS RESULT OUT OF RANGE REFERENCE UNITS LAB L503.6620 0-100 pg/mL High B-TYPE 181.1 BECCA PEP Performed By: #### L503.6620 #### [facility] [address] [place], [place], [address] MAGNESIUM Collected: 03/05/2018 Status: F Source: [place] 2:50 PM [facility] REPOSITORY Order Comment: OK TO ADD PER ADDY TYPE CODE TESTS RESULT OUT OF RANGE REFERENCE UNITS LAB L501.5200 1.6-2.6 mg/dL Normal MG 2.2 Performed By: #### L501.5200 #### [facility] [address] [place], [address] Observed: 03/05/2018 Status: F Source: [place] CULTURE, BLOOD (WB) 2:50 PM [facility] REPOSITORY BC No growth in 5 days. Performed By: #### M200.1000 #### [facility] [address] [place], [address] BRAIN/HEAD WITHOUT Observed: 03/05/2018 Status: F Source: [place] CONTRAST 2:16 PM [facility] REPOSITORY [facility] Imaging Services [address] [place] [address] Brain/Head without Contrast MR#: [id number] Acct: [id number] Name: XANDER RAMIREZ Rep #: [id number] : 1950 F 67 From: Ang Mazariegos MD PCP: Jose Alfredo LEACH,Patel [facility] Status: REG ER Study: Brain/Head without Contrast Date of Exam: 03/05/18 Exam# [id number] Ordering Dr: Francis Carr MD STUDY: CT BRAIN WITHOUT CONTRAST REASON FOR EXAM: Female, 67 years old. Headache. RADIATION DOSAGE (If Supplied By Facility): CTDIvol = ( 44.99 ) mGy, DLP = ( 1490.98 ) mGycm TECHNIQUE: Transaxial CT imaging of the brain was performed without administration of intravenous contrast material. There is motion artifact. Individualized dose optimization techniques were used for this CT. COMPARISON: None. FINDINGS: Normal soft tissue structures. Normal calvarium. Normal size ventricles and extra-axial spaces for the patient's age. There are areas of decreased attenuation within the white matter tracts of the supratentorial brain, consistent with microvascular disease changes. Normal basal ganglia and thalami. Normal brainstem. There is mild cerebellar atrophy. There is no intracranial hemorrhage. There are no findings of an acute ischemic infarction. Normal visualized paranasal sinuses. CT/Brain/Head without Contrast IMPRESSION: Chronic involutional changes of the brain. Electronically Signed: Ang Mazariegos MD at 15:29 EDT , Service support , CC: MD Bryan Carr; Patel Veliz MD Extraction Operator: Signed CHEST 1 VIEW Observed: 03/05/2018 Status: F Source: [place] (PORTABLE) 2:09 PM [facility] REPOSITORY [facility] Imaging Services [address] [place] [address] Chest 1 View (Portable) MR#: [id number] Acct: [id number] Name: XANDER RAMIREZ Rep #: [id number] : 1950 F 67 From: Elsie Umaña MD PCP: Patel Veliz MD, Chi Status: REG ER Study: Chest 1 View (Portable) Date of Exam: 03/05/18 Exam# [id number] Ordering Dr: Francis Carr MD STUDY: X-RAY CHEST REASON FOR EXAM: Female, 67 years old. Fever, headache. TECHNIQUE: Single frontal view of the chest. COMPARISON: February 01, 2018 FINDINGS: The lungs remain hyperinflated. There is no new focal consolidation. Normal size heart. Normal mediastinum and denae. Normal visualized pulmonary arteries. Normal visualized aortic arch and descending thoracic aorta. Normal visualized thoracic spine. Normal visualized ribs, clavicles, and shoulders. There is no demonstrated abnormality of the visualized soft tissue structures of the upper abdomen. RAD/Chest 1 View (Portable) IMPRESSION: Stable examination demonstrating no acute cardiopulmonary process. Electronically Signed: Elsie Umaña MD at 15:33 EDT Tel , Service support , CC: MD Bryan Carr; Patel Veliz MD Extraction Operator: Signed EMERGENCY DEPARTMENT Observed: 02/24/2018 Status: F Source: [place] SUMMARY 10:55 AM [facility] REPOSITORY [facility] Medical Records Department [address] [place] [address] Emergency Department Summary 02/24/18 0814 MR#: [id number] Acct: [id number] Name: XANDER RAMIREZ Rep #: [id number] : 1950 67 From: Thai Alfaro DO PCP: Patel Veliz MD, Chi Status: REG ER - ER Visit Summary Date of Service: 02/24/18 Chief Complaint: Abdominal pain History of Present Illness: The patient is a 67 F who presents with abdominal pain that has been getting worse over the past 3 days. Patient states the pain is gradually gotten worse. Patient describes her pain as aching. Patient states her pain is diffuse across her abdomen. Patient admits to some nausea but denies any vomiting. Patient denies any diarrhea. Patient admits to some urinary frequency but denies any dysuria. Patient denies any back pain. Physical Examination: Vital signs are stable. Patient is afebrile. Patient is in no acute distress. Oral mucosa is pink and moist. Neck is supple. Trachea is midline. There is no JVD noted. Heart was regular rate and rhythm. Lungs are clear and equal bilaterally. There is good respiratory effort noted. Abdomen is soft. There is mild diffuse tenderness. There is no rebound or guarding noted. Cranial nerves II through XII are intact. There are no focal motor or sensory deficits noted. The remaining physical exam is within normal limits. Test Results: CBC, comprehensive metabolic profile, lipase, and urinalysis were obtained were all essentially within normal limits. CT scan of the abdomen and pelvis with oral and IV contrast was obtained. There is dilatation of the biliary ducts and common bile duct to the ampulla of Vater. Emergency Department Course and Treatment: Patient was given IV fluids, Bentyl, morphine, and Zofran here. Patient felt better on reevaluation. Patient was instructed to follow-up with her primary care physician in 3-5 days. Patient was also given a referral for outpatient follow-up with surgery for possible ERCP. Patient understands and is agreeable with the plan. All questions were answered. Disposition: Discharge home Impression: Abdominal pain This note was generated with [employer] dictation software. It may contain incorrect words, spelling, and punctuation that were not noted in review of the chart prior to signing ED Disposition - Plan for ED Patient: Disposition: Home or Assisted Living Chief Complaint: Abd Pain Diagnosis: Epigastric abdominal pain of unknown etiology Instructions: ED Abdominal Pain Unkn Cause Referrals: Patel Veliz Chi, MD [Primary Care Provider] - What to do if you have Problems For any increased pain, shortness of breath, bleeding, nausea or vomiting, chest pain, or any unexpected problems, contact your Primary Care Provider. Call [facility] ([phone]) or report to the closest Emergency Room. Call 911 if necessary. 02/24/18 1055 <Electronically signed by Thai Alfaro DO> Date Thai Alfaro DO Cosigner Signature (If Indicated): Date CC: Patel Veliz MD CBC W/DIFF, AUTOMATED Collected: 02/24/2018 Status: F Source: [place] 8:36 AM [facility] REPOSITORY TYPE CODE TESTS RESULT OUT OF RANGE REFERENCE UNITS LAB L100.1000 4.4-11.0 K/mm3 Normal WBC 5.2 LAB L100.1200 4.2-5.4 M/mm3 Low RBC 4.14 LAB L100.1300 12.0-15.0 g/dl Normal HGB 12.5 LAB L100.1400 37-47 % Normal HCT 38.9 LAB L100.1500 81-99 fL Normal MCV 94.0 LAB L100.1600 27.0-32.0 pg Normal MCH 30.2 LAB L100.1700 32-36 g/gl Normal MCHC 32.1 LAB L100.1810 11.6-14.6 % Normal RDW CV 14.0 LAB L100.1820 35.1-43.9 fl High RDW SD 47.9 LAB L100.1900 150-450 K/mm3 Normal PLT 197 LAB L100.2000 6.2-12.0 fl Normal MPV 9.0 LAB L100.2100 47-70 % Normal NEUT% 49.2 LAB L100.2200 19-41 % Normal LY% 38.2 LAB L100.2300 0-10 % Normal MONO% 8.0 LAB L100.2400 0-5 % Normal EO% 4.2 LAB L100.2500 0-1 % Normal BASO% 0.4 LAB L100.2550 0.0-0.9 % Normal IM GRAN % 0.000 Result Comment: IG% - Immature Granulocytes (promyelocytes, myelocytes and metamyelocytes) > 1% indicates that a LEFT SHIFT is Present. LAB L100.2620 2.0-7.7 X10 3/uL Normal Absolute Neut 2.6 LAB L100.2720 0.83-4.51 X10 3/ul Normal Absolute Lymph 2.00 Performed By: #### L100.0100 #### [facility] [address] [facility]. [place], [place], [address] URINALYSIS, COMPLETE Collected: 02/24/2018 Status: F Source: [place] 8:06 AM [facility] REPOSITORY Order Comment: Order Date: 02/24/18 How was Urine Obtained? CLEAN CATCH TYPE CODE TESTS RESULT OUT OF RANGE REFERENCE UNITS LAB L400.3000 Yellow COLOR Normal Yellow LAB L400.3050 Clear Normal CLARITY Sl. Cloudy LAB L400.3200 Normal mg/dl Normal GLUCOSE, UR Normal LAB L400.3300 Negative mg/dL High BILIRUBIN URINE 6 Result Comment: COLOR OF URINE MAY AFFECT DIPSTICK RESULTS. LAB L400.3400 Negative mg/dl High KETONE UR 50 LAB L400.3465 1.002-1.030 Normal SP.GR. DIPSTX 1.010 LAB L400.3550 5.0 - 8.0 pH Normal UR 7.0 LAB L400.3600 Negative mg/dl Normal PROT DIPSTX Negative LAB L400.3700 Normal mg/dl Normal UROBILI Normal LAB L400.3750 Negative Normal NITRITE UR Negative LAB L400.3780 Negative /ul Normal OCCULT Negative BLOOD-UR LAB L400.3800 Negative /ul High LEUK ESTERASE 25 LAB L400.4050 0-5 /hpf Normal WBC 0-5 SEEN LAB L400.4100 0-5 /hpf Normal RBC-UA 0-5 SEEN LAB L400.4150 5-10 /hpf Normal SQUAM EPI 0-5 SEEN LAB L400.4300 None Seen /hpf Normal BACTERIA RARE LAB L400.4350 <or=2+ /hpf Normal MUCUS, URINE RARE Performed By: #### L400.0001 #### [facility] [address] [place], [address] COMPREHENSIVE METABOLIC Collected: 02/24/2018 Status: F Source: [facility] 8:05 AM [facility] REPOSITORY TYPE CODE TESTS RESULT OUT OF RANGE REFERENCE UNITS LAB L501.0100 74-106 mg/dL High GLU 113 Result Comment: Fasting Glucose result from 100 to 125 mg/dL suggests IMPAIRED HOMEOSTASIS per A.D.A. criteria. Please note revised GLUCOSE reference range effective 2017. LAB L501.1000 7-18 mg/dL Normal BUN 12 LAB L501.1100 0.55-1.02 mg/dL Normal CREAT,SERUM 0.55 Result Comment: The validity of the calculated GFR AND GFRAA in patients over 70 years has not been determined. Clinical correlation is essential. LAB L501.1110 >60 mL/min Normal EST GFR 117 Result Comment: Non- GFR Calc LAB L501.1115 >60 mL/min Normal EST GFR - AA 141 Result Comment: GFR Calc LAB L501.1255 ml/min Normal Estimated CRCL 48.45 LAB L501.1300 10-20 RATIO High BUN/CRE 21.8 LAB L501.1500 6.4-8. g/dL Normal 2 T PROT 7.0 LAB L501.1800 3.2-5. g/dL Low 0 ALB 3.1 LAB L501.1950 2.2-4. g/dL Normal 2 GLOB 3.9 LAB L501.2000 0.9-2. RATIO Low 4 A/G 0.8 LAB L501.2200 8.5-10 mg/dL Normal .1 CA 8.5 LAB L501.4100 15-37 U/L Normal AST 18 LAB L501.4305 45-117 U/L Normal ALK P 66 LAB L501.4405 13-56 U/L Normal ALT 20 LAB L501.4600 0.20-1 mg/dL Normal .00 T BILI 0.30 LAB L501.5300 136-14 mmol/L Normal 5 NA 140 LAB L501.5600 3.5-5. mmol/L Normal 1 K 3.8 LAB L501.5900 98-107 mmol/L High CL 109 LAB L501.6100 21.0-3 mmol/L Normal 2.0 CO2 23.0 LAB L501.6200 5-15 Normal GAP 8 Performed By: #### L500.4050, L501.2450 #### [facility] [address] [place], [address] LIPASE Collected: 02/24/2018 Status: F Source: [place] 8:05 AM [facility] REPOSITORY TYPE CODE TESTS RESULT OUT OF REFERENCE UNITS RANGE LAB L501.2450 73-393 U/L Low LIPASE 47 Performed By: #### L500.4050, L501.2450 #### [facility] [address] [place], [address] ABDOMEN/PELVIS WITH Observed: 02/24/2018 Status: F Source: [place] CONTRAST 7:43 AM [facility] REPOSITORY [facility] Imaging Services [address] [place] [address] Abdomen/Pelvis WITH Contrast MR#: [id number] Acct: [id number] Name: XANDER RAMIREZ Rep #: [id number] : 1950 F 67 From: Isaias Munroe MD PCP: Jose Alfredo LEACH,Patel Chi Status: REG ER Study: Abdomen/Pelvis WITH Contrast Date of Exam: 02/24/18 Exam# [id number] Ordering Dr: Thai Alfaro DO STUDY: CT ABDOMEN AND PELVIS WITH CONTRAST REASON FOR EXAM: Female, 67 years old. Abdominal pain. RADIATION DOSAGE (If Supplied By Facility): CTDIvol = ( 18.01 ) mGy, DLP = ( 885.63 ) mGycm TECHNIQUE: Transaxial images were obtained from the dome of the diaphragm to the symphysis pubis with oral contrast. 100 ml of Isovue 300 contrast was administered. Sagittal and coronal images were reconstructed. Individualized dose optimization techniques were used for this CT. COMPARISON: None. FINDINGS: The visualized lung bases are unremarkable. The visualized portions of the heart are within normal limits. There is evidence of intrahepatic biliary ductal dilatation. The common bile duct is dilated down to the ampullary R5. It measures 1.2 cm in transverse dimension. There are surgical clips in the gallbladder fossa consistent with a prior cholecystectomy. Normal spleen. There are pancreatic calcifications in the distribution of the ducts consistent with chronic pancreatitis. Normal bilateral adrenal glands. Normal right kidney. Normal left kidney. There is a small hiatal hernia. Normal small intestine. There are multiple colonic diverticula consistent with diverticulosis. The appendix is visualized and appears normal. There is diffuse atherosclerotic calcification of the abdominal aorta, without a demonstrated aneurysm. Normal inferior vena cava. Normal retroperitoneum. Normal urinary bladder. There is a small umbilical hernia containing fat. There are degenerative changes of the visualized lumbar spine. Evidence of spinal stenosis in the lower lumbar segments. The patient is status post right total hip replacement. This causes beam hardening artifacts and decreased evaluation of the pelvis. CT/Abdomen/Pelvis WITH Contrast IMPRESSION: Intrahepatic biliary ductal dilatation as well as dilatation of the common bile duct down to the insertion of the ampulla of Vater. Correlation with ERCP is recommended to rule out possible abnormality at the ampulla Vater. Electronically Signed: Isaias Munroe MD at 9:46 EDT Tel [phone], Service support , CC: Thai Alfaro DO; Patel Veliz MD Extraction Operator: Signed SURGERY VISIT REPORT Observed: 02/10/2018 Status: F Source: [place] 8:11 AM [facility] [address] [place] [address] [address] [place] [address] OFFICE VISIT Date of Service: 02/07/18 MR#: [id number] Acct: [id number] Name: XANDER RAMIREZ Rep #: [id number] : 1950 Provider: Jr Dunlap MD Age/Sex: 67/F Location: [facility] Status: Signed Intake Vital Signs02/07/18 Height 5 ft 5 in 02/07/18 Weight: 157 lb 02/07/18 Body Mass Index (BMI) 26.1 Intake Visit Reasons: Painful Hemorrhoids Chief Complaint: Metabolic Acidosis Beauty Sales Consultant Required: No Is patient in pain?: Yes (hemorrhoids) Allergies Penicillins Allergy (Verified 02/07/18 14:40) Anaphylaxis codeine Adverse Reaction (Verified 02/07/18 14:40) Nausea Medications Albuterol Aerosols [Ventolin Aerosols] 2.5 mg INHALATION Q4H PRN 05/12/16 [History Confirmed 02/07/18] Alendronate Sodium [Fosamax] 70 mg PO FR 05/12/16 [History Confirmed 02/07/18] Calcium Carbonate/Vitamin D3 [Oyster Shell 500-Vit D3 200 Tb] 1 ea PO DAILY 05/12/16 [History Confirmed 02/07/18] Etodolac 400 mg PO BID 05/12/16 [History Confirmed 02/07/18] Fluticasone/Salmeterol [Advair 250/50 Mcg Diskus] 2 puff INHALATION BID 05/12/16 [History Confirmed 02/07/18] Gabapentin [Neurontin] 300 mg PO BID 05/12/16 [History Confirmed 02/07/18] Phenytoin Na [Dilantin] 100 mg PO 4X/DAY 05/12/16 [History Confirmed 02/07/18] Ropinirole HCl [Requip] 2 mg PO QHS 05/12/16 [History Confirmed 02/07/18] Tolterodine Tartrate [Detrol LA] 4 mg PO QHS 05/12/16 [History Confirmed 02/07/18] Temazepam [Restoril] 30 mg PO QHS 06/24/17 [History Confirmed 02/07/18] Mirtazapine [Remeron] 15 mg PO QHS 07/03/17 [History Confirmed 02/07/18] Latanoprost 0.005% [Xalatan Opthalmic] 1 drp EACH EYE QHS 07/04/17 [History Confirmed 02/07/18] Furosemide [Lasix] 40 mg PO DAILY 09/04/17 [History Confirmed 02/07/18] Methadone HCl 10 mg PO TID 09/04/17 [History Confirmed 02/07/18] Amlodipine [Norvasc] 2.5 mg PO DAILY 11/07/17 [History Confirmed 02/07/18] Clotrimazole [Lotrimin] 1 applicatio TOPICAL BID PRN PRN 11/07/17 [History Confirmed 02/07/18] Ergocalciferol [Vitamin D] 50,000 units PO MO 11/07/17 [History Confirmed 02/07/18] Phenobarbital 32.4 mg PO BID 11/07/17 [History Confirmed 02/07/18] Potassium Chloride [K-Dur] 20 meq PO DAILY 11/07/17 [History Confirmed 02/07/18] Pravastatin [Pravachol] 40 mg PO QHS 11/07/17 [History Confirmed 02/07/18] Ranitidine [Zantac] 300 mg PO DAILY 11/07/17 [History Confirmed 02/07/18] buPROPion SR [Wellbutrin SR (150mg tablets)] 150 mg PO BID 11/07/17 [History Confirmed 02/07/18] Cyclobenzaprine [Flexeril] 10 mg PO TID PRN #20 tab 12/20/17 [Rx Confirmed 02/07/18] [facility] Medical History Acidosis (Acute) Generalized weakness (Chronic) Debility (Chronic) Acute and chronic respiratory failure with hypoxia (Acute) Nicotine abuse (Acute) Acute respiratory failure with hypercapnia (Acute) Acute respiratory failure with hypoxia and hypercapnia (Acute) Acute exacerbation of chronic obstructive airways disease (Acute) Hypokalemia (Acute) Subtherapeutic serum dilantin level (Acute) Subtherapeutic phenobarb level (Acute) Depression (Chronic) Insomnia (Chronic) Hypertension (Chronic) Fever (Acute) Physical debility (Chronic) Degenerative disc disease, lumbar (Chronic) Pain, chronic (Chronic) Seizure disorder (Chronic) Restless leg syndrome (Chronic) COPD (chronic obstructive pulmonary disease) (Acute) Obstructive sleep apnea (Chronic) Smokes with greater than 40 pack year history (Chronic) Surgical History History of right hip replacement (Acute) Broken ankle (Acute) S/P laparoscopic cholecystectomy (Acute) S/P appendectomy (Acute) Family History Mother Diabetes Heart disease Hypertension CAD (coronary artery disease) CVA (cerebral vascular accident) Social History Smoking Status: Current every day smoker HPI HPI HPI: XANDER RAMIREZ, is a 67 F who presents to the office today for hemorrhoids. The patient says that she has been having painful hemorrhoids and a lot of constipation with very hard stools. The patient was started on MiraLAX by her PCP and this has been helping. She is having softer bowel movements and they are more regular. ROS General General: No weight change or fatigue Cardio Cardiovascular: No murmur, pacemaker, heart disease, atrial fibrillation, high blood pressure, heart attack, heart stent, palpitations, shortness of breat with exertion or chest pain Psych Psychiatric: Yes depression and anxiety Resp Respiratory: No shortness of breath, Yes sleep apnea, Yes cough, Yes COPD, Yes asthma, No emphysema, No wheezing Gastro Gastrointestinal: No abdominal pain, Yes nausea or vomiting, No diarrhea, Yes constipation, Yes blood in stool, No acid reflux, Yes hemorrhoids, No ulcers, No gallbladder problem, No black,tarry stools Faraz Hematologic: No blood thinners Exam Resp Effort AND Inspection: normal respiratory effort Auscultation: clear to auscultation bilaterally Cardio Rate: regular rate Rhythm: regular rhythm Heart Sounds: no murmurs GI Inspection: non-distended Palpation: soft, nontender Other: On rectal exam the patient has soft internal hemorrhoids with external skin tags. No gross blood. Assessment AND Plan Problems 1. Grade III hemorrhoids K64.2 Plan 1. The patient is having some relief from her hard stools and constipation with MiraLAX. I recommend that she continue her MiraLAX regimen and follow- up in 6 weeks. I explained surgery would be painful and last resort. The patient would like to follow-up after trying MiraLAX on a more regular basis. I believe this will help resolve her hemorrhoidal symptoms. Jr Dunlap MD Pager: [facility] [address] [place] [address], [address] [place] [address] Office: Coding Level of Care Code Off vis,new,level 3 Diagnoses Grade III hemorrhoids K64.2 Hemorrhoid type: third degree 02/10/18 0811 <Electronically signed by Jr Dunlap MD> Date Jr Dunlap MD Cosigner Signature: Date (if applicable) CC: Patel Veliz MD EMERGENCY DEPARTMENT Observed: 02/02/2018 Status: F Source: [place] SUMMARY 2:53 PM [facility] REPOSITORY [facility] Medical Records Department [address] [place] [address] Emergency Department Summary 02/01/18 1554 MR#: [id number] Acct: [id number] Name: XANDER RAMIREZ Rep #: [id number] : 1950 67 From: Peng Pastrana MD PCP: Patel Veliz MD, Chi Status: DEP ER - ER Visit Summary Date of Service: 02/01/18 Chief Complaint: Constipation and back pain History of Present Illness: The patient is a [address] Andujar and Dr. Veliz. She reports that her last problem was 4 days ago and the typically she goes daily. She drank 2 bottles of magnesium citrate 2 days ago without any relief. She reports that she is on methadone for chronic back pain and that she has not taken this for the past 3 days because of her constipation. She reports that she has been on methadone for approximately 5 years. She reports that she has had problems with constipation in the past, but not as severe as this. Patient complains of an aching lower back pain that is 10 out of 10 severity. Is worsened by movement and relieved by methadone. States that radiates the in the back of both legs to the level of her feet. She denies any numbness or weakness. No problems with her bladder. No recent trauma. No fall, MVA, or change in activity. Patient reports that she has diffuse abdominal pain is 9 out of 10 in severity and describes this as sharp. She is nauseated, but has not vomited. She denies any fever or chills. No other complaints. Physical Examination: Vitals: Stable. Afebrile. General: A AND O x 3. NAD. Cardiovascular exam: Regular rate and rhythm, no murmur, rub or gallop. Respiratory exam: Clear to auscultation bilaterally. No wheezes or stridor. Abdominal exam: Soft, nontender, nondistended, normal bowel sounds. No peritoneal signs. Back: Diffuse moderate tenderness to palpation over the lumbar spine and the paraspinous musculature in the lumbar region. No point tenderness. Negative straight leg bilaterally. 5/5 DF, PF, EHL bilaterally. Normal sensation to light touch throughout. Extremity: No clubbing, cyanosis, or edema. 2+ dorsalis pedis pulse bilaterally. Test Results: CBC is remarkable for segmented neutrophils of 72. Chem-7 more for chloride 109, glucose 167, calcium 8.3. UA is negative. KUB shows minimal stool and a nonspecific bowel gas pattern. Emergency Department Course and Treatment: Patient had an IV placed. She was given dose of Dilaudid and Zofran IV. She had a soapsuds enema with no results. Treatment Plan: Had a prolonged discussion the patient that her abdominal pain is not from constipation. I suggested that she restart her methadone and that withdrawal from this alone can cause abdominal pain. She is instructed to follow-up with Dr. Zhu tomorrow as previously scheduled. Return to the emergency department for any worsening symptoms. Disposition: To home in improved and stable condition. Impression: 1. Chronic back pain. 2. Abdominal pain. This note was generated with [employer] dictation software. It may contain incorrect words, spelling, and punctuation that were not noted in review of the chart prior to signing ED Disposition - Plan for ED Patient: Disposition: Home or Assisted Living Chief Complaint: Back Instructions: ED Neck Back Pain General Referrals: Patel Veliz Chi, MD [Primary Care Provider] - Keep Chen appointment What to do if you have Problems For any increased pain, shortness of breath, bleeding, nausea or vomiting, chest pain, or any unexpected problems, contact your Primary Care Provider. Call [facility] ([phone]) or report to the closest Emergency Room. Call 911 if necessary. 02/02/18 5298 <Electronically signed by Peng Pastrana MD> Date Peng Pastrana MD Cosigner Signature (If Indicated): Date CC: Patel Veliz MD ACUTE ABDOMEN INC Observed: 02/01/2018 Status: F Source: [place] CHEST 3:11 PM [facility] REPOSITORY [facility] Imaging Services [address] [place] [address] Acute Abdomen Inc Chest MR#: [id number] Acct: [id number] Name: XANDER RAMIREZ Rep #: [id number] : 1950 F 67 From: Micha Pedraza MD PCP: Patel Veliz MD, Chi Status: REG ER Study: Acute Abdomen Inc Chest Date of Exam: 02/01/18 Exam# [id number] Ordering Dr: Peng Pastrana MD STUDY: X-RAY - ACUTE ABDOMINAL SERIES REASON FOR EXAM: Female, 67 years old. Constipation x6 days TECHNIQUE: Single view of the chest. Supine, and erect view(s) of the abdomen were obtained. COMPARISON: Prior study of 01/30/2018 FINDINGS: The lungs are clear and expanded. Normal size heart. Normal mediastinum and denae. Normal visualized pulmonary arteries. There are calcified plaques of the aortic arch. There is a non-specific bowel gas pattern. Multiple small radiopacities are seen in the pelvis consistent with phleboliths versus diverticuli containing contrast. There is a 3.3 cm density of the mid left pelvis appearing to represent radiodense stool. Status post total right hip replacement changes are seen. There are degenerative changes of the left hip. RAD/Acute Abdomen Inc Chest IMPRESSION: 1. Calcified plaques of the aortic arch. 2. There is an actual paucity of colonic stool. There is a 3.3 cm radiopacity of the mid left pelvis appearing to represent relatively radiodense stool. 3. There are multiple small hyperdensities of the left and right pelvis consistent with phleboliths and/or diverticuli containing retained contrast. 4. There are surgical clips in the right upper quadrant of the abdomen. 5. There is no evidence of ileus, obstruction, or free intraperitoneal air. Electronically Signed: Micha Pedraza MD at 16:56 EDT , Service support , CC: Peng Pastrana MD; Patel Veliz MD Extraction Operator: Signed URINALYSIS, COMPLETE Collected: 02/01/2018 Status: F Source: [place] 2:30 PM [facility] REPOSITORY Order Comment: How was Urine Obtained? CATHETER SPECIMEN TYPE CODE TESTS RESULT OUT OF RANGE REFERENCE UNITS LAB L400.3000 Yellow COLOR Normal Yellow LAB L400.3050 Clear Normal CLARITY Clear LAB L400.3200 Normal mg/dl Normal GLUCOSE, UR Normal LAB L400.3300 Negative mg/dL Normal BILIRUBIN URINE Negative LAB L400.3400 Negative mg/dl Normal KETONE UR Negative LAB L400.3465 1.002-1.030 Normal SP.GR. DIPSTX 1.010 LAB L400.3550 5.0 - 8.0 pH UR Normal 8.0 LAB L400.3600 Negative mg/dl PROT Normal DIPSTX Negative LAB L400.3700 Normal mg/dl Normal UROBILI Normal LAB L400.3750 Negative Normal NITRITE UR Negative LAB L400.3780 Negative /ul Normal OCCULT BLOOD-UR Negative LAB L400.3800 Negative /ul LEUK Normal ESTERASE Negative LAB L400.4050 0-5 /hpf WBC 0 Normal SEEN LAB L400.4100 0-5 /hpf 0 Normal RBC-UA SEEN LAB L400.4150 5-10 /hpf SQUAM 0 Normal EPI SEEN LAB L400.4300 None Seen /hpf 0 Normal BACTERIA SEEN LAB L400.4350 <or=2+ /hpf 0 Normal MUCUS, URINE SEEN Performed By: #### L400.0001 #### [facility] [address] [place], [place], [address] CBC W/DIFF, AUTOMATED Collected: 02/01/2018 Status: F Source: [place] 2:15 PM [facility] REPOSITORY TYPE CODE TESTS RESULT OUT OF RANGE REFERENCE UNITS LAB L100.1000 4.4-11.0 K/mm3 Normal WBC 9.2 LAB L100.1200 4.2-5.4 M/mm3 Normal RBC 4.62 LAB L100.1300 12.0-15.0 g/dl Normal HGB 14.4 LAB L100.1400 37-47 % Normal HCT 43.8 LAB L100.1500 81-99 fL Normal MCV 94.8 LAB L100.1600 27.0-32.0 pg Normal MCH 31.2 LAB L100.1700 32-36 g/gl Normal MCHC 32.9 LAB L100.1810 11.6-14.6 % Normal RDW CV 14.0 LAB L100.1820 35.1-43.9 fl High RDW SD 47.2 LAB L100.1900 150-450 K/mm3 Normal PLT 201 LAB L100.2000 6.2-12.0 fl Normal MPV 10.7 LAB L100.2100 47-70 % High NEUT% 71.7 LAB L100.2200 19-41 % Normal LY% 19.1 LAB L100.2300 0-10 % Normal MONO% 7.8 LAB L100.2400 0-5 % Normal EO% 1.1 LAB L100.2500 0-1 % Normal BASO% 0.2 LAB L100.2550 0.0-0.9 % Normal IM GRAN % 0.100 Result Comment: IG% - Immature Granulocytes (promyelocytes, myelocytes and metamyelocytes) > 1% indicates that a LEFT SHIFT is Present. LAB L100.2620 2.0-7.7 X10 3/uL Normal Absolute Neut 6.6 LAB L100.2720 0.83-4.51 X10 3/ul Normal Absolute Lymph 1.75 Performed By: #### L100.0100 #### [facility] [address] [place], [address] BASIC METABOLIC Collected: 02/01/2018 Status: F Source: [place] PROFILE (BMP) 2:15 PM [facility] REPOSITORY TYPE CODE TESTS RESULT OUT OF RANGE REFERENCE UNITS LAB L501.0100 74-106 mg/dL High GLU 167 Result Comment: Fasting Glucose result greater than or equal to 126 mg/dL suggests DIABETES MELLITUS per A.D.A. criteria. Please note revised GLUCOSE reference range effective 2017. LAB L501.1000 7-18 mg/dL Normal BUN 11 LAB L501.1100 0.55-1.02 mg/dL Normal CREAT,SERUM 0.63 Result Comment: The validity of the calculated GFR AND GFRAA in patients over 70 years has not been determined. Clinical correlation is essential. LAB L501.1110 >60 mL/min Normal EST GFR 100 Result Comment: Non- GFR Calc LAB L501.1115 >60 mL/min Normal EST GFR - AA 121 Result Comment: GFR Calc LAB L501.1255 ml/min Normal Estimated CRCL 48.45 LAB L501.1300 10-20 RATIO Normal BUN/CRE 17.5 LAB L501.2200 8.5-10 mg/dL Low .1 CA 8.3 LAB L501.5300 136-14 mmol/L Normal 5 NA 144 LAB L501.5600 3.5-5. mmol/L Normal 1 K 3.6 LAB L501.5900 98-107 mmol/L High CL 109 LAB L501.6100 21.0-3 mmol/L Normal 2.0 CO2 28.0 LAB L501.6200 5-15 Normal GAP 7 Performed By: #### L500.2500 #### [facility] [address] [place], [address] EMERGENCY DEPARTMENT Observed: 01/30/2018 Status: F Source: [place] SUMMARY 4:34 PM [facility] REPOSITORY [facility] Medical Records Department [address] [place] [address] Emergency Department Summary 01/30/18 0720 MR#: [id number] Acct: [id number] Name: XANDER RAMIREZ Rep #: [id number] : 1950 67 From: Daniel Connolly DO PCP: Patel Veliz MD, Chi Status: DEP ER - ER Visit Summary Date of Service: 01/30/18 Chief Complaint: Abdominal pain History of Present Illness: The patient is a 67 F who presents the emergency department with abdominal pain. She states that she hurts all over and is globally weak. The patient states she has not had a bowel movement somewhere between 2 and 4 days. It is not clear because she gets a different answer each time he asked her. She states that her body feels like she stuck her finger into a light socket. Patient denies any fever. She has chronic pain is on methadone. Her most recent ER visit was also for constipation in December (1 month ago). No recent seizures. No URI symptoms. No diarrhea or vomiting. Physical Examination: Afebrile vital signs are stable Gen: Well-nourished well-developed patient rolls around in the bed and kicks her legs and moans. She is able to stop this and converse normally. Head: Normocephalic atraumatic Eyes: Perrl EOMI ENT: TMs clear no rhinorrhea moist mucous membranes Neck: Supple no lymphadenopathy no JVD nontender CVS: Regular rate rhythm no murmurs normal S1-S2 Respiratory: No distress clear to auscultation bilaterally chest nontender Abdomen: Soft diffusely tender without guarding or rebound nondistended normal bowel sounds no masses Back: Nontender Extremity: Nontender no edema Skin: Normal color no rash Neuro: alert orientated 3 CN II-XII intact normal strength sensation reflexes gait cerebellar Psych: Dramatic affect Test Results: KUB demonstrates a nonspecific bowel gas pattern. There is no fecal impaction. Emergency Department Course and Treatment: Patient received Bentyl here in the department. She will be treated at home with magnesium citrate. Impression: 1. Constipation This note was generated with [employer] dictation software. It may contain incorrect words, spelling, and punctuation that were not noted in review of the chart prior to signing ED Disposition - Plan for ED Patient: Disposition: Home or Assisted Living Chief Complaint: Abd Pain Instructions: ED Constipation Prescriptions: Magnesium Citrate [Citrate Of Magnesia] 300 ml PO X1 #2 bottle Referrals: Patel Veliz Chi, MD [Primary Care Provider] - 1-2 Days if not improving What to do if you have Problems For any increased pain, shortness of breath, bleeding, nausea or vomiting, chest pain, or any unexpected problems, contact your Primary Care Provider. Call [facility] ([phone]) or report to the closest Emergency Room. Call 911 if necessary. 01/30/18 1634 <Electronically signed by Daniel Connolly DO> Date Daniel Connolly DO Cosigner Signature (If Indicated): Date CC: Patel Veliz MD ABDOMEN SINGLE VIEW Observed: 01/30/2018 Status: F Source: [place] 7:08 AM [facility] REPOSITORY [facility] Imaging Services [address] [place] [id number] Abdomen Single View MR#: [id number] Acct: [id number] Name: XANDER RAMIREZ Rep #: [id number] : 1950 F 67 From: Tami Ramirez MD PCP: Patel Veliz MD, Chi Status: REG ER Study: Abdomen Single View Date of Exam: 01/30/18 Exam# [id number] Ordering Dr: Daniel Connolly DO STUDY: X-RAY - ABDOMEN/PELVIS REASON FOR EXAM: Female, 67 years old. Abdominal pain for 3 days and constipation. TECHNIQUE: Three AP supine views of the abdomen and pelvis. COMPARISON: Radiographs of the abdomen dated December 22, 2017. FINDINGS: Normal visualized lung bases. There is an unremarkable bowel gas pattern. Surgical clips are visible in the right upper quadrant. There is no obvious organomegaly, mass or dilated bowel. There are calcified phleboliths in the pelvis. There may be retained contrast in sigmoid colonic diverticula. The patient has a total right hip arthroplasty. There are degenerative changes of the left hip. Multiple calcifications are visible in the gluteal areas probably related to injection granulomas. RAD/Abdomen Single View IMPRESSION: No radiographic evidence of acute intra-abdominal disease. Electronically Signed: Tami Ramirez MD at 8:03 EDT , Service support , CC: Daniel Connolly DO; Patel Veliz MD Extraction Operator: Signed EMERGENCY DEPARTMENT Observed: 12/23/2017 Status: F Source: [place] SUMMARY 1:20 AM [facility] REPOSITORY [facility] Medical Records Department [address] [place] [address] [place] [address] Emergency Department Summary 12/22/17 2334 MR#: [id number] Acct: [id number] Name: XANDER RAMIREZ Rep #: [id number] : 1950 67 From: Peng Pastrana MD PCP: Patel Veliz MD, Chi Status: DEP ER - ER Visit Summary Date of Service: 12/22/17 Chief Complaint: Constipation History of Present Illness: The patient is a [address] Veliz and Dr. Andujar. She is on methadone for spinal stenosis. She reports that she is constipated and has not had a bowel movement 3 days. Typically she goes daily. She complains of diffuse crampy abdominal pain is 10 out of 10 severity. Is worsened by nothing relieved by nothing. No nausea or vomiting. No dysuria or frequency. Physical Examination: Vitals: Stable. Afebrile. General: Well-nourished and well-developed. Head: Normocephalic atraumatic. Neck: Supple, no lymphadenopathy. No JVD. Nontender. Cardiovascular: Regular rate and rhythm. No murmurs. Respiratory: No respiratory distress. Clear to auscultation bilaterally. Abdominal: Soft, mild diffuse tenderness to palpation, nondistended, normal bowel sounds. No guarding, rebound, or peritoneal signs. Back: Nontender. Extremities: Nontender, no edema. Skin: Normal color, no rash. Neurologic: Alert and oriented 3. Cranial nerves II through XII are intact. Normal strength and sensation. Psych: Normal affect. Test Results: Three-view of the abdomen shows a nonspecific bowel gas pattern. Emergency Department Course and Treatment: Patient was treated with Dilaudid IM. She refused a fleets enema. Treatment Plan: Patient will be discharged with magnesium citrate. Instructed follow-up Dr. Zhu in 1-2 days if not improving. Return to the emergency department for any worsening symptoms. Disposition: To home in improved and stable condition. Impression: 1. Constipation. This note was generated with [employer] dictation software. It may contain incorrect words, spelling, and punctuation that were not noted in review of the chart prior to signing ED Disposition - Plan for ED Patient: Chief Complaint: Constipation Instructions: ED Constipation Referrals: Patel Veliz Chi, MD [Primary Care Provider] - 1-2 Days if not improving What to do if you have Problems For any increased pain, shortness of breath, bleeding, nausea or vomiting, chest pain, or any unexpected problems, contact your Primary Care Provider. Call [facility] ([phone]) or report to the closest Emergency Room. Call 911 if necessary. 12/23/17 0120 <Electronically signed by Peng Pastrana MD> Date Peng Pastrana MD Cosigner Signature (If Indicated): Date CC: Patel Veliz MD ACUTE ABDOMEN INC Observed: 12/22/2017 Status: F Source: [place] CHEST 10:20 PM [facility] REPOSITORY [facility] Imaging Services [address] [place] [id number] Acute Abdomen Inc Chest MR#: [id number] Acct: [id number] Name: XANDER RAMIREZ Rep #: [id number] : 1950 F 67 From: Yordy Walter MD PCP: Patel Veliz MD, Chi Status: REG ER Study: Acute Abdomen Inc Chest Date of Exam: 12/22/17 Exam# [id number] Ordering Dr: Peng Pastrana MD STUDY: X-RAY - ACUTE ABDOMINAL SERIES REASON FOR EXAM: Female, 67 years old. Constipation for 3 days TECHNIQUE: Single view of the chest. Supine, view(s) of the abdomen were obtained. COMPARISON: None. FINDINGS: No lung consolidation, pleural effusion or pneumothorax. No free air under the diaphragm. Slightly elevated right hemidiaphragm. Bowel gas pattern is nonobstructive and nonspecific. Fecal loading of colonic loops. Surgical clips in the right upper quadrant Scattered phleboliths. Right-sided hip arthroplasty. Degenerative changes in the lumbar spine as well as the sacroiliac joints. Degenerative changes in the left hip joint. IMPRESSION: No definite evidence for small bowel obstruction seen. No free air under the diaphragm. Fecal loading of colonic loops Electronically Signed: Yordy Saba, at 23:53 EDT Tel , Service support , RAD/Acute Abdomen Inc Chest CC: Peng Pastrana MD; Patel Veliz MD Extraction Operator: Signed 12 LEAD ELECTROCARDIOGRAM Observed: 12/22/2017 Status: F Source: [place] 2:30 PM [facility] REPOSITORY [facility] Cardiovascular Services [address] [place] [id number] 12 Lead EKG 12/20/17 1855 MR#: [id number] Acct: [id number] Name: XANDER RAMIREZ Rep #: [id number] : 1950 67 From: Tank Hernandez MD Attending Dr: Status: DEP ER Ordering Dr: Lukasz Coto DO Date: 12/20/17 Location: ED Sex: F C Admitted: Test Reason : SOB Blood Pressure : / mmHG Vent. Rate : 087 BPM Atrial Rate : 087 BPM P-R Int : 158 ms QRS Dur : 098 ms QT Int : 392 ms P-R-T Axes : 072 -07 012 degrees QTc Int : 471 ms Normal sinus rhythm Low voltage QRS Borderline ECG Confirmed by TANK HERNANDEZ MD ([id number]), web content editor GOPI RAMIREZ ([id number]) on 12/22/2017 2:30:29 PM Referred By: TL Confirmed By:TANK HERNANDEZ MD 12/22/17 1430 Date Tank Hernandez MD CC: Patel Veliz MD; Lukasz Coto Signed EMERGENCY DEPARTMENT Observed: 12/21/2017 Status: F Source: [place] SUMMARY 4:40 PM [facility] REPOSITORY [facility] Medical Records Department [address] [place] [address] Emergency Department Summary 12/20/17 1217 MR#: [id number] Acct: [id number] Name: XANDER RAMIREZ Rep #: [id number] : 1950 67 From: Wayne Hi MD PCP: Patel Veliz MD, Chi Status: DEP ER - ER Visit Summary Date of Service: 12/20/17 Chief Complaint: Back pain History of Present Illness: The patient is a 67 F presenting for evaluation secondary to back pain. Patient has chronic history of back pain and is treated with methadone from pain managemen. Patient states about an hour ago she had sudden onset of lower back pain. It is diffuse across her lower back and radiates up into her back. No radiation to legs. No numbness weakness bowel or bladder incontinence fevers. Patient has no history of IV drug abuse. Patient states that the pain is worse with movement. She denies any injuries or lifting twisting pushing or pulling. Physical Examination: Vitals: Within normal limits General: Well-nourished well-developed no acute distress Head: Normocephalic atraumatic ENT: Moist mucous membranes Neck: Supple no JVD Cardiovascular: Heart regular rate and rhythm no murmurs Respiratory: Respirations nondistressed, lung sounds clear to auscultation bilaterally Abdominal: Soft, nontender, nondistended, normal bowel sounds, no evidence of abdominal masses or pulsatile mass Back: Normal to inspection, no midline tenderness to palpation, straight leg raise negative bilaterally, paraspinal tenderness bilaterally Extremities: Nontender, nonedematous, 2+ radial and PT pulses bilaterally symmetric Skin: Normal color no rash Neuro: 5/5 strength hip flexion, knee flexion, knee extension, dorsiflexion, plantarflexion, EHL. Sensation intact over all dermatomes of the lower extremities bilaterally, 2+ patellar and Achilles reflexes bilaterally symmetric, negative clonus bilaterally Test Results: None indicated Emergency Department Course and Treatment: Patient presented with an exacerbation of her chronic back pain. She has a normal neurologic exam, no red flag signs or symptoms no indication for neuroimaging at this point. Patient was treated with a dose of Toradol and Norflex in the emergency department repeat evaluation 1215 showed the patient to have significant improvement. Patient will be discharged with a muscle relaxant to be taken in addition to her home pain medication. She will follow-up with pain management. Disposition: Discharge Impression: 1. Acute on chronic back pain This note was generated with [employer] dictation software. It may contain incorrect words, spelling, and punctuation that were not noted in review of the chart prior to signing ED Disposition - Plan for ED Patient: Disposition: Home or Assisted Living Chief Complaint: Back Diagnosis: Back pain Instructions: ED Spasm Back No Trauma Prescriptions: Cyclobenzaprine [Flexeril] 10 mg PO TID PRN #20 tab PRN Reason: Muscle Spasm Referrals: Patel Veliz Chi, MD [Primary Care Provider] - 1 Week if not improving What to do if you have Problems For any increased pain, shortness of breath, bleeding, nausea or vomiting, chest pain, or any unexpected problems, contact your Primary Care Provider. Call [facility] ([phone]) or report to the closest Emergency Room. Call 911 if necessary. 12/21/17 1640 <Electronically signed by Wayne Hi MD> Date Wayne Hi MD Cosigner Signature (If Indicated): Date CC: Patel Veliz MD EMERGENCY DEPARTMENT Observed: 12/20/2017 Status: F Source: [place] SUMMARY 8:11 PM [facility] REPOSITORY [facility] Medical Records Department [address] [place] [address] Emergency Department Summary 12/20/17 1851 MR#: [id number] Acct: [id number] Name: XANDER RAMIREZ Rep #: [id number] : 1950 67 From: Lukasz Verde PCP: Jose Alfredo LEACH,Patel Garvey Status: REG ER - ER Visit Summary Date of Service: 12/20/17 Chief Complaint: Dyspnea, cough History of Present Illness: The patient is a 67 F 1 month history cough, nonproductive. Worsening dyspnea prior to arrival, states wheezing. History of COPD on as needed oxygen. No fevers. Complains of sweats. States mild chest pain earlier secondary to cough. No nausea or vomiting. EMS reports 88% room air on arrival, status post aerosol treatment. No current wheezing. No further complaints. Physical Examination: General: Alert and oriented 3, no acute distress HEENT: Normocephalic, atraumatic. Moist mucosa membranes Neck: supple, nontender. Cardiovascular: Regular rate and rhythm, no murmurs Respiratory: Normal breath sounds, symmetric, no distress Abdomen: Soft, nontender, nondistended Extremities: Nontender, no edema, pulses intact 4 Neuro: no focal neurological deficits. Test Results: EKG: Sinus rate of 87, no ST or T wave changes. Chest x-ray: Negative. Labs White count 7.4, he will 13.4 per creatinine 0.54. Troponin negative. Emergency Department Course and Treatment: Patient presents with COPD history, O2 stable on arrival on room air. No current wheezing after aerosol from EMS. Treated Solu-Medrol, workup initiated. Cardiac workup negative. Chest x-ray negative. Reevaluation remained stable. Ambulated with a pulse ox remained stable at 94-96%. Complains of leg cramping, no history of gastric ulcers. Toradol given. Started on Zithromax for COPD exacerbation. MAURO score 0. Will be treated for 4 additional days of steroids and antibiotics. She will follow-up with her PCP, signs and symptoms discussed to return. All questions were answered. Treatment Plan: [] Disposition: Discharge Impression: 1. COPD exacerbation 2. Atypical chest pain This note was generated with [employer] software. It may contain incorrect words, spelling, and punctuation that were not noted in review of the chart prior to signing ED Disposition - Plan for ED Patient: Disposition: Home or Assisted Living Chief Complaint: Shortness of Breath Diagnosis: COPD exacerbation, Atypical chest pain Instructions: ED COPD Flare, ED Chest Pain Atypical Unkn Cause Prescriptions: Azithromycin [Zithromax] 250 mg PO DAILY #4 tablet Prednisone [Deltasone] 60 mg PO DAILY #12 tablet Referrals: Patel Veliz Chi, MD [Primary Care Provider] - 3-5 Days What to do if you have Problems For any increased pain, shortness of breath, bleeding, nausea or vomiting, chest pain, or any unexpected problems, contact your Primary Care Provider. Call [facility] ([phone]) or report to the closest Emergency Room. Call 911 if necessary. 12/20/172010 <Electronically signed by Lukasz Verde> Date Lukasz Verde Cosigner Signature (If Indicated): Date CC: Patel Veliz MD CBC W/DIFF, AUTOMATED Collected: 12/20/2017 Status: F Source: [place] 6:55 PM [facility] REPOSITORY TYPE CODE TESTS RESULT OUT OF RANGE REFERENCE UNITS LAB L100.1000 4.4-11.0 K/mm3 Normal WBC 7.4 LAB L100.1200 4.2-5.4 M/mm3 Normal RBC 4.44 LAB L100.1300 12.0-15.0 g/dl Normal HGB 13.4 LAB L100.1400 37-47 % Normal HCT 40.8 LAB L100.1500 81-99 fL Normal MCV 91.9 LAB L100.1600 27.0-32.0 pg Normal MCH 30.2 LAB L100.1700 32-36 g/gl Normal MCHC 32.8 LAB L100.1810 11.6-14.6 % Normal RDW CV 13.8 LAB L100.1820 35.1-43.9 fl High RDW SD 45.8 LAB L100.1900 150-450 K/mm3 Normal PLT 233 LAB L100.2000 6.2-12.0 fl Normal MPV 9.7 LAB L100.2100 47-70 % Normal NEUT% 50.4 LAB L100.2200 19-41 % Normal LY% 37.1 LAB L100.2300 0-10 % High MONO% 10.7 LAB L100.2400 0-5 % Normal EO% 1.2 LAB L100.2500 0-1 % Normal BASO% 0.5 LAB L100.2550 0.0-0.9 % Normal IM GRAN % 0.100 Result Comment: IG% - Immature Granulocytes (promyelocytes, myelocytes and metamyelocytes) > 1% indicates that a LEFT SHIFT is Present. LAB L100.2620 2.0-7.7 X10 3/uL Normal Absolute Neut 3.7 LAB L100.2720 0.83-4.51 X10 3/ul Normal Absolute Lymph 2.74 Performed By: #### L100.0100 #### [facility] [address] [place], [address] BASIC METABOLIC Collected: 12/20/2017 Status: F Source: [place] PROFILE ([facility]) 6:55 PM [facility] REPOSITORY TYPE CODE TESTS RESULT OUT OF RANGE REFERENCE UNITS LAB L501.0100 74-106 mg/dL Normal GLU 84 Result Comment: Please note revised GLUCOSE reference range effective 2017. LAB L501.1000 7-18 mg/dL Normal BUN 17 LAB L501.1100 0.55-1.02 mg/dL Low CREAT,SERUM 0.54 Result Comment: The validity of the calculated GFR AND GFRAA in patients over 70 years has not been determined. Clinical correlation is essential. LAB L501.1110 >60 mL/min Normal EST GFR 118 Result Comment: Non- GFR Calc LAB L501.1115 >60 mL/min Normal EST GFR - AA 143 Result Comment: GFR Calc LAB L501.1255 ml/min Normal Estimated CRCL 48.45 LAB L501.1300 10-20 RATIO High BUN/CRE 31.2 LAB L501.2200 8.5-10 mg/dL Low .1 CA 8.3 LAB L501.5300 136-14 mmol/L Normal 5 NA 143 LAB L501.5600 3.5-5. mmol/L Low 1 K 3.3 Result Comment: Moderate Hemolysis, Result may be falsely increased. LAB L501.5900 98-107 mmol/L Normal CL 106 LAB L501.6100 21.0-32.0 mmol/L Normal CO2 26.0 LAB L501.6200 5-15 Normal GAP 11 Performed By: #### L500.2500, L501.4010 #### [facility] [address] [facility] [place], [address] TROPONIN-I Collected: 12/20/2017 Status: F Source: [place] 6:55 PM [facility] REPOSITORY TYPE CODE TESTS RESULT OUT OF RANGE REFERENCE UNITS LAB L501.4010 <0.045 ng/mL Normal < 0.015 TROPONIN-I Result Comment: TROPONIN-I EXPECTED VALUES <0.045 Negative 0.045 - 0.590 Consistent with Cardiac Damage > OR = 0.600 Critical Value Not every elevated troponin is indicative of DE. These values should be used with clinical judgement in examining the patient's clinical picture for diagnosis. To establish a diagnosis of DE versus myocardial injury, there must be a demonstrated rise and/or fall in the troponin values, in addition to ischemic symptoms, EKG changes, new regional wall motion abnormality, and/or angiographical evidence. PLEASE NOTE: REFERENCE RANGES EDITED 17 Performed By: #### L500.2500, L501.4010 #### [facility] [address] [facility] [place], [address] CHEST PA AND LATERAL Observed: 12/20/2017 Status: F Source: [place] 6:46 PM [facility] REPOSITORY [facility] Imaging Services [address] [place] [address] Chest PA and Lateral MR#: [id number] Acct: [id number] Name: XANDER RAMIREZ Rep #: [id number] : 1950 F 67 From: Terrance Lara MD PCP: Jose Alfredo LEACH,Patel Chi Status: DEP ER Study: Chest PA and Lateral Date of Exam: 12/20/17 Exam# [id number] Ordering Dr: Lukasz Coto DO STUDY: X-RAY CHEST REASON FOR EXAM: Female, 67 years old. Short of breath. COPD. TECHNIQUE: Frontal and lateral views of the chest. COMPARISON: 11/07/2017. FINDINGS: There is hyperinflation of the lungs consistent with chronic obstructive lung disease (COPD). No infiltrates or effusions. There is no demonstrated pleural abnormality. Normal size heart. Normal mediastinum and denae. Normal visualized pulmonary arteries. Normal visualized aortic arch and descending thoracic aorta. There are diffuse degenerative changes of the visualized thoracic spine. There is degenerative osteoarthritis of the bilateral shoulders. There is no demonstrated abnormality of the visualized soft tissue structures of the upper abdomen. RAD/Chest PA and Lateral IMPRESSION: There are findings consistent with COPD. There is no evidence of acute chest disease. Electronically Signed: Terrance Lara MD at 22:19 EDT , Service support , CC: Patel Veliz MD; Lukasz Coto Extraction Operator: Signed DISCHARGE INSTRUCTION Observed: 12/04/2017 Status: F Source: [place] 7:49 AM [facility] REPOSITORY [facility] Medical Records Department [address] [place] [address] Discharge Instruction 12/04/17 0748 MR#: [id number] Acct: [id number] Name: XANDER RAMIREZ Rep #: [id number] : 1950 67 From: Harley Garcia MD PCP: Patel Veliz MD, Chi Status: REG ER ED Disposition - Plan for ED Patient: Disposition: Home or Assisted Living Chief Complaint: Back Instructions: ED Neck Back Pain General Prescriptions: Cyclobenzaprine [Flexeril] 10 mg PO TID PRN #20 tab PRN Reason: Muscle Spasm Referrals: Patel Veliz Chi, MD [Primary Care Provider] - What to do if you have Problems For any increased pain, shortness of breath, bleeding, nausea or vomiting, chest pain, or any unexpected problems, contact your Primary Care Provider. Call [facility] ([phone]) or report to the closest Emergency Room. Call 911 if necessary. 12/04/17 0749 <Electronically signed by Harley Garcia MD> Date Harley Garcia MD Cosigner Signature (If Indicated): Date CC: Patel Veliz MD EMERGENCY DEPARTMENT Observed: 12/04/2017 Status: F Source: [place] SUMMARY 7:48 AM [facility] REPOSITORY [facility] Medical Records Department [address] [place] [address] Emergency Department Summary 12/04/17 0709 MR#: [id number] Acct: [id number] Name: XANDER RAMIREZ Rep #: [id number] : 1950 67 From: Harley Garcia MD PCP: Patel Veliz MD, Chi Status: REG ER - ER Visit Summary Date of Service: 12/04/17 Chief Complaint: Back pain History of Present Illness: The patient is a 67 F who presents with back pain. She states she has had this pain for years but got worse over the past couple of days. She was seen here 2 days ago given a dose of medications and told to follow-up with her pain management doctor. She continues to have this pain. Is from spinal stenosis. She is in pain management with Dr. Andujar. She takes methadone. She states it was recently cut from 3 times a day to 2 times a day. She denies any fever. No bowel or bladder incontinence. No numbness or tingling in her legs. Physical Examination: Vital signs reviewed. HEENT exam unremarkable. Heart is regular rate and rhythm without murmurs. Lungs are clear to auscultation. Abdomen is soft and nontender. Back exam reveals diffuse lumbar tenderness to palpation. Extremities reveal no edema. Skin exam normal. Neurologic exam normal, including reflexes.. Test Results: None performed Emergency Department Course and Treatment: Patient was given morphine and Norflex intramuscularly. She felt better. This is an acute exacerbation of her chronic pain. She has no red flag symptoms. I do not feel any imaging is necessary. I will treat her with Flexeril at home. She will need to follow-up with her pain management doctor Treatment Plan: [] Disposition: Discharge Impression: Acute on chronic low back pain This note was generated with [employer] dictation software. It may contain incorrect words, spelling, and punctuation that were not noted in review of the chart prior to signing ED Disposition - Plan for ED Patient: Chief Complaint: Back Referrals: Patel Veliz Chi, MD [Primary Care Provider] - What to do if you have Problems For any increased pain, shortness of breath, bleeding, nausea or vomiting, chest pain, or any unexpected problems, contact your Primary Care Provider. Call [facility] ([phone]) or report to the closest Emergency Room. Call 911 if necessary. 12/04/17 0748 <Electronically signed by Harley Garcia MD> Date Harley Garcia MD Cosigner Signature (If Indicated): Date CC: Patel Veliz MD EMERGENCY DEPARTMENT Observed: 12/02/2017 Status: F Source: [place] SUMMARY 10:20 PM [facility] REPOSITORY [facility] Medical Records Department [address] [place] [address] Emergency Department Summary 12/02/17 0518 MR#: [id number] Acct: [id number] Name: XANDER RAMIREZ Rep #: [id number] : 1950 67 From: Abelardo Grant MD PCP: Patel Veliz MD, Chi Status: DEP ER - ER Visit Summary Date of Service: 12/02/17 Chief Complaint: [] Bilateral leg and back pain History of Present Illness: The patient is a 67 F [] complaining of bilateral leg and back pain for years. She has been in pain management for last 2 years. Patient has a history of chronic pineal spinal stenosis. She takes methadone with her last dose at 2 AM. Her doctor decreased her methadone usage from 3 times per day down to twice per day just yesterday. She is unsure if that changed her tolerance of pain. This is similar type pain in her diffuse bilateral legs and low back. No loss of bowel or bladder function. No fevers or chills. No urinary symptoms. Physical Examination: Vital signs reviewed General: Well-nourished well-developed Head: Normocephalic atraumatic Eyes: Pupils equal round and reactive to light extraocular movements intact ENT: TMs clear no hemotympanum no trauma Neck: Nontender full range of motion Cardiovascular: Regular rate rhythm no murmurs normal S1-S2 Respiratory: No distress clear to auscultation bilaterally chest nontender Abdomen: Soft nontender nondistended normal bowel sounds no masses Back: Tenderness across the lower lumbar spine diffusely. No swelling deformity redness. Decreased range of motion secondary to pain Extremities: Decreased range of motion of the legs bilateral secondary to pain. Normal color and temperature. No mottling. Normal pulses. Skin: Normal color no trauma Neuro alert oriented cranial nerves II through XII intact normal strength sensation reflexes Test Results: [] Emergency Department Course and Treatment: [] Given injection of morphine intramuscular. Reevaluation her pain is almost completely resolved. She will follow-up with her pain management doctor. Given dose of Zofran for nausea. I think this is acute on chronic exacerbation of her chronic pain. I do not think she has a cauda equina syndrome. I do not think she has a vascular emergency. Treatment Plan: [] Disposition: [] Impression: [] Acute on chronic back pain Acute on chronic leg pain This note was generated with [employer] dictation software. It may contain incorrect words, spelling, and punctuation that were not noted in review of the chart prior to signing ED Disposition - Plan for ED Patient: Chief Complaint: Lower Extremity Injury Referrals: Patel Veliz Chi, MD [Primary Care Provider] - What to do if you have Problems For any increased pain, shortness of breath, bleeding, nausea or vomiting, chest pain, or any unexpected problems, contact your Primary Care Provider. Call [facility] ([phone]) or report to the closest Emergency Room. Call 911 if necessary. 12/02/172219 <Electronically signed by Abelardo Grant MD> Date Abelardo Grant MD Cosigner Signature (If Indicated): Date CC: Patel Veliz MD DISCHARGE INSTRUCTION Observed: 12/02/2017 Status: F Source: [place] 10:20 PM [facility] REPOSITORY [facility] Medical Records Department [facility] [place] [address] Discharge Instruction 12/02/17609 MR#: [id number] Acct: [id number] Name: XANDER RAMIREZ Rep #: [id number] : 1950 67 From: Abelardo Grant MD PCP: Patel Veliz MD, Chi Status: DEP ER ED Disposition - Plan for ED Patient: Chief Complaint: Lower Extremity Injury Instructions: Relieving Back Pain Referrals: Patel Veliz Chi, MD [Primary Care Provider] - Georgiana Andujar MD [STAFF PHYSICIAN] - What to do if you have Problems For any increased pain, shortness of breath, bleeding, nausea or vomiting, chest pain, or any unexpected problems, contact your Primary Care Provider. Call [facility] ([phone]) or report to the closest Emergency Room. Call 911 if necessary. 12/02/172219 <Electronically signed by Abelardo Grant MD> Date Abelardo Grant MD Cosigner Signature (If Indicated): Date CC: Patel Veliz MD 12 LEAD ELECTROCARDIOGRAM Observed: 11/11/2017 Status: F Source: [place] 11:07 AM [facility] REPOSITORY [facility] Cardiovascular Services [address] [place] [address] 12 Lead EKG 11/07/17 1236 MR#: [id number] Acct: [id number] Name: XANDER RAMIREZ Rep #: [id number] : 1950 67 From: Saulo Moss MD Attending Dr: Dariusz Gilmore DO Status: DIS IN Ordering Dr: Daniel Connolly DO Date: 11/07/17 Location: [facility] [place] [facility] Sex: F C Admitted: 11/07/17 Test Reason : GEN ILLNESS Blood Pressure : / mmHG Vent. Rate : 072 BPM Atrial Rate : 072 BPM P-R Int : 162 ms QRS Dur : 100 ms QT Int : 426 ms P-R-T Axes : 083 036 049 degrees QTc Int : 466 ms Normal sinus rhythm Low voltage QRS (limb leads) Confirmed by JAMES LEACH, SAULO ([id number]), web content editor GOPI RAMIREZ ([id number]) on 11/11/2017 11:07:01 AM Referred By: Georgiana Andujar Confirmed By:SAULO MOSS MD 11/11/17 1107 Date Saulo Moss MD CC: Daniel Connolly DO; Dariusz Gilmore DO; Patel Veliz MD Signed EMERGENCY DEPARTMENT Observed: 11/09/2017 Status: F Source: [place] SUMMARY 8:27 AM [facility] REPOSITORY [facility] Medical Records Department [address] [place] [address] Emergency Department Summary 11/07/17 1558 MR#: [id number] Acct: [id number] Name: XANDER RAMIREZ Rep #: [id number] : 1950 67 From: Daniel Connolly DO PCP: Jose Alfredo LEACH,Patel Garvey Status: DIS IN - ER Visit Summary Date of Service: 11/07/17 Chief Complaint: Body aches History of Present Illness: The patient is a 67 F 0-by ambulance for body aches began on Tuesday. She states that she has been unable to eat or drink since that time. She denies missing any doses of her methadone or any of her other medications. She denies any fevers. No change in breathing. She denies any abdominal pain or urinary symptoms. Notes a history of obstructive sleep apnea spinal stenosis/chronic pain and COPD. She is a patient of Dr. Veliz. Is able to smoke 1 cigarette today. Physical Examination: Afebrile vital signs are stable Gen: Well-nourished well-developed Head: Normocephalic atraumatic Eyes: Perrl EOMI ENT: TMs clear no rhinorrhea moist mucous membranes Neck: Supple no lymphadenopathy no JVD nontender CVS: Regular rate rhythm no murmurs normal S1-S2 Respiratory: No distress clear to auscultation bilaterally chest nontender Abdomen: Soft nontender nondistended normal bowel sounds no masses Back: Nontender Extremity: Nontender no edema Skin: Normal color no rash Neuro: alert orientated 3 CN II-XII intact normal strength sensation Psych: Patient appears depressed. Test Results: White count 6.4. Chemistry shows sodium 135 glucose is 65 and a CO2 of 17. Liver lipase essentially negative. Urinalysis positive for 150 ketones no overt infection. Troponin less than 0.015. Lactic acid 0.8. Moderate ketones in the blood. PH 7.27 CO2 28.4 bicarb is 13 PO2 at 73 chest x-ray negative. EKG sinus at a rate of 72. Emergency Department Course and Treatment: She received IV fluids of D50. She requested something for pain and given [place]. Given the metabolic acidosis which I am attributing to starvation ketosis has occurred over the past several days her plan will be admission. Impression: 1. Metabolic acidosis 2. Starvation ketosis 3. Hypoglycemia This note was generated with [employer] dictation software. It may contain incorrect words, spelling, and punctuation that were not noted in review of the chart prior to signing ED Disposition - Plan for ED Patient: Disposition: [facility] Care [facility] Chief Complaint: General Illness What to do if you have Problems For any increased pain, shortness of breath, bleeding, nausea or vomiting, chest pain, or any unexpected problems, contact your Primary Care Provider. Call [facility] ([phone]) or report to the closest Emergency Room. Call 911 if necessary. 11/09/17 0827 <Electronically signed by Daniel Connolly DO> Date Daniel Connolly DO Cosigner Signature (If Indicated): Date CC: Patel Veliz MD DISCHARGE SUMMARY Observed: 11/08/2017 Status: F Source: [place] 4:40 PM [facility] REPOSITORY [facility] Medical Records Department [address] [place] [address] Discharge Summary 11/08/17 1244 MR#: [id number] Acct: [id number] Name: XANDER RAMIREZ Rep #: [id number] : 1950 67 From: Tavo MARTINEZ PCP: Patel Veliz MD, Chi Status: DIS IN Y Location: [facility] [place] [id number] Discharge Date and Diagnosis - Problem List Patient Problems: Active and Suspected Problems Acidosis (Acute) Date of Admission: 11/07/17 Date of Discharge: 11/08/17 - Primary Discharge Diagnosis Active and Suspected Problems Metabolic Acidosis 2/2 not eating Generalized pain and debility 2/2 Chronic pain syndrome COPD without exacerbation Chronic hypoxic respiratory failure Debility Nicotine abuse Hx Seizures Osteoporosis - Secondary Discharge Diagnosis Chronic Problems Generalized weakness (Chronic) Debility (Chronic) Depression (Chronic) Insomnia (Chronic) She takes Temazepam every night for sleep, prescribed by Dr. Veliz Hypertension (Chronic) Physical debility (Chronic) Degenerative disc disease, lumbar (Chronic) Pain, chronic (Chronic) Seizure disorder (Chronic) Restless leg syndrome (Chronic) Obstructive sleep apnea (Chronic) non-compliant with CPAP but has oxygen to wear at night Smokes with greater than 40 pack year history (Chronic) Hospital Course and Treatment Imaging Results: RAD/Abdomen Single View IMPRESSION: Normal x-ray examination of the abdomen and pelvis. RAD/Chest PA and Lateral IMPRESSION: Hyperinflation. Operations: None Procedures: None Summary of Care Provided: Physical exam on day of discharge: General: Resting comfortably NAD Psych: A/Ox3 normal affect HEENT: SHANARLA AT NC Neck: Supple NT CV: RRR no m/t/r/g/h Resp: CTA Abd: [id number] Soft NT no guarding or rigidity Ext: DP2+= no edema Skin: W/D normal turgor Lymph/Heme: No active bleeding or adenopathy Neuro: CN2-12 intact Hospital course: The patient is a 67 year old F with a hx of chronic back pain, pt of Dr. Andujar, with a hx of COPD and chronic hypoxic respiratory failure who still smokes, who reported to the ER from her apartment with 3 days of pain all over and inability to tolerate PO. She was found to have mild acidosis but otherwise unremarkable labs, negative KUB, negative UA, negative CXR. Acidosis was felt to be related to not eating or drinking for 3 days prior. She was admitted and placed on fluids and antiemetics. She was able to tolerate a diet and her pain all over improved. The following morning her symptoms were all improved and her labs normalized. This was felt to be related to her chronic pain and close follow up with Dr. Andujar was advised. She was discharged home in stable condition. This patient was seen by Tavo Patino PA-C under the supervision of Doctor Mando. [] Discharge Diet: No Restrictions Discharge Activity: Return to Normal Activity, - - stop smoking Home Medications: Medications to take at Discharge Albuterol Aerosols [Ventolin Aerosols] 2.5 mg INHALATION Q4H PRN 05/12/16 Albuterol IH (ProAir) [Proair Hfa] 2 puff INHALATION BID PRN 05/12/16 Alendronate Sodium [Fosamax] 70 mg PO FR 05/12/16 Calcium Carbonate/Vitamin D3 [Oyster Shell 500-Vit D3 200 Tb] 1 each PO DAILY 05/12/16 Etodolac 400 mg PO BID 05/12/16 Fluticasone/Salmeterol [Advair 250/50 Mcg Diskus] 2 puff INHALATION BID 05/12/16 Gabapentin [Neurontin] 300 mg PO BID 05/12/16 Phenytoin Na [Dilantin] 100 mg PO 4X/DAY 05/12/16 Ropinirole HCl [Requip] 2 mg PO QHS 05/12/16 Tolterodine Tartrate [Detrol LA] 4 mg PO QHS 05/12/16 Temazepam [Restoril] 30 mg PO QHS 06/24/17 Mirtazapine [Remeron] 15 mg PO QHS 07/03/17 Latanoprost 0.005% [Xalatan Opthalmic] 1 drop EACH EYE QHS 07/04/17 Furosemide [Lasix] 40 mg PO DAILY 09/04/17 Methadone HCl 10 mg PO TID 09/04/17 Hydrocortisone [Anusol Hc] 25 mg RECTAL TID PRN PRN #20 suppos. 09/05/17 Amlodipine [Norvasc] 2.5 mg PO DAILY 11/07/17 Clotrimazole [Lotrimin] 1 applicatio TOPICAL BID PRN PRN 11/07/17 Ergocalciferol [Vitamin D] 50,000 units PO MO 11/07/17 Phenobarbital 32.4 mg PO BID 11/07/17 Potassium Chloride [K-Dur] 20 meq PO DAILY 11/07/17 Pravastatin [Pravachol] 40 mg PO QHS 11/07/17 Ranitidine [Zantac] 300 mg PO DAILY 11/07/17 buPROPion SR [Wellbutrin SR (150mg tablets)] 150 mg PO BID 11/07/17 Primary Care Physician: Patel Veliz Chi, MD [Primary Care Provider] - Please follow up with your Primary Care Physician in: 1-2 weeks Please Follow Up With: Georgiana Andujar MD - call for appointment When: 1 week Disposition: Home Minutes spent on discharge:: 35 Patient Condition:: Stable Medical Necessity - Tobacco Use Smoking Status: Current every day smoker Tobacco Use: Cigarettes Meaningful Use Info Meaningful Use Diagnoses (Choose all that apply): None applicable 11/08/17 1251 <Electronically signed by Tavo MARTINEZ> Date Tavo MARTINEZ 11/08/17 1640<Electronically signed by Dariusz Gilmore DO> Cosigner Signature (if applicable): Date Dariusz Gilmore DO CC: JUAN Patino; Dariusz Gilmore DO; Patel Veliz MD Signed DISCHARGE INSTRUCTION Observed: 11/08/2017 Status: F Source: [place] 11:56 AM [facility] REPOSITORY [facility] Medical Records Department [address] [place] [address] Instructions for Home/Discharge Instructions 11/08/17 1153 MR#: [id number] Acct: [id number] Name: XANDER RAMIREZ Rep #: [id number] : 1950 67 From: Tavo MARTINEZ PCP: Jose Alfredo LEACH,Patel Garvey Status: ADM IN - Discharge Diagnoses Current Active Problems: Current Active and Chronic Problems Acidosis (Acute) Generalized weakness (Chronic) Debility (Chronic) You will use the following diet at home:: No restrictions Your food should be the consistency of: Regular Your liquids should be the consistency of: Regular/Thin Discharge Activity: Return to Normal Activity, - - stop smoking Allergies/Adverse Reactions: Allergies Penicillins Allergy (Verified 11/07/17 11:20) Anaphylaxis codeine Adverse Reaction (Verified 11/07/17 11:20) Nausea Medications to take at Discharge Albuterol Aerosols [Ventolin Aerosols] 2.5 mg INHALATION Q4H PRN 05/12/16 Albuterol IH (ProAir) [Proair Hfa] 2 puff INHALATION BID PRN 05/12/16 Alendronate Sodium [Fosamax] 70 mg PO FR 05/12/16 Calcium Carbonate/Vitamin D3 [Oyster Shell 500-Vit D3 200 Tb] 1 each PO DAILY 05/12/16 Etodolac 400 mg PO BID 05/12/16 Fluticasone/Salmeterol [Advair 250/50 Mcg Diskus] 2 puff INHALATION BID 05/12/16 Gabapentin [Neurontin] 300 mg PO BID 05/12/16 Phenytoin Na [Dilantin] 100 mg PO 4X/DAY 05/12/16 Ropinirole HCl [Requip] 2 mg PO QHS 05/12/16 Tolterodine Tartrate [Detrol LA] 4 mg PO QHS 05/12/16 Temazepam [Restoril] 30 mg PO QHS 06/24/17 Mirtazapine [Remeron] 15 mg PO QHS 07/03/17 Latanoprost 0.005% [Xalatan Opthalmic] 1 drop EACH EYE QHS 07/04/17 Furosemide [Lasix] 40 mg PO DAILY 09/04/17 Methadone HCl 10 mg PO TID 09/04/17 Hydrocortisone [Anusol Hc] 25 mg RECTAL TID PRN PRN #20 suppos. 09/05/17 Amlodipine [Norvasc] 2.5 mg PO DAILY 11/07/17 Clotrimazole [Lotrimin] 1 applicatio TOPICAL BID PRN PRN 11/07/17 Ergocalciferol [Vitamin D] 50,000 units PO MO 11/07/17 Phenobarbital 32.4 mg PO BID 11/07/17 Potassium Chloride [K-Dur] 20 meq PO DAILY 11/07/17 Pravastatin [Pravachol] 40 mg PO QHS 11/07/17 Ranitidine [Zantac] 300 mg PO DAILY 11/07/17 buPROPion SR [Wellbutrin SR (150mg tablets)] 150 mg PO BID 11/07/17 Primary Care Physician: Patel Veliz Chi, MD [Primary Care Provider] - Please follow up with your Primary Care Physician in: 1-2 weeks Please Follow Up With: Georgiana Andujar MD - call for appointment When: 1 week Proposed Discharge Date: 11/08/17 11/08/17 1158 <Electronically signed by Tavo MARTINEZ> Date Tavo MARTINEZ CC: Patel Veliz MD BEDSIDE GLUCOSE Collected: 11/08/2017 Status: F Source: [place] 11:34 AM [facility] REPOSITORY TYPE CODE TESTS RESULT OUT OF REFERENCE UNITS RANGE LAB L501.080 70-110 mg/dL High BEDSIDE GLU 207 Result Comment: MANAGEMENT OF PATIENT CARE PER NURSING PROTOCOL Performed By: #### L501.080 #### [place] [facility] Point of Care [address] [place] [address] BEDSIDE GLUCOSE Collected: 11/08/2017 Status: F Source: [place] 6:12 AM [facility] REPOSITORY TYPE CODE TESTS RESULT OUT OF RANGE REFERENCE UNITS LAB L501.080 70-110 mg/dL Normal BEDSIDE GLU 90 Result Comment: MANAGEMENT OF PATIENT CARE PER NURSING PROTOCOL Performed By: #### L501.080 #### [facility] Point of [address] [place] [address] CBC W/DIFF, AUTOMATED Collected: 11/08/2017 Status: F Source: [place] 5:30 AM [facility] REPOSITORY TYPE CODE TESTS RESULT OUT OF RANGE REFERENCE UNITS LAB L100.1000 4.4-11.0 K/mm3 Normal WBC 6.7 LAB L100.1200 4.2-5.4 M/mm3 Low RBC 4.11 LAB L100.1300 12.0-15.0 g/dl Normal HGB 12.3 LAB L100.1400 37-47 % Normal HCT 37.7 LAB L100.1500 81-99 fL Normal MCV 91.7 LAB L100.1600 27.0-32.0 pg Normal MCH 29.9 LAB L100.1700 32-36 g/gl Normal MCHC 32.6 LAB L100.1810 11.6-14.6 % Normal RDW CV 14.0 LAB L100.1820 35.1-43.9 fl High RDW SD 47.3 LAB L100.1900 150-450 K/mm3 Normal PLT 206 LAB L100.2000 6.2-12.0 fl Normal MPV 8.9 LAB L100.2100 47-70 % Low NEUT% 38.5 LAB L100.2200 19-41 % Normal LY% 39.2 LAB L100.2300 0-10 % High MONO% 11.4 LAB L100.2400 0-5 % High EO% 10.1 LAB L100.2500 0-1 % Normal BASO% 0.5 LAB L100.2550 0.0-0.9 % Normal IM GRAN % 0.300 Result Comment: IG% - Immature Granulocytes (promyelocytes, myelocytes and metamyelocytes) > 1% indicates that a LEFT SHIFT is Present. LAB L100.2620 2.0-7.7 X10 3/uL Normal Absolute Neut 2.6 LAB L100.2720 0.83-4.51 X10 3/ul Normal Absolute Lymph 2.61 Performed By: #### L100.0100 #### [facility] [address] [place], [place], [address] COMPREHENSIVE METABOLIC Collected: 11/08/2017 Status: F Source: [place] 5:30 AM [facility] REPOSITORY TYPE CODE TESTS RESULT OUT OF RANGE REFERENCE UNITS LAB L501.0100 74-106 mg/dL Normal GLU 86 Result Comment: Please note revised GLUCOSE reference range effective 2017. LAB L501.1000 7-18 mg/dL Normal BUN 11 LAB L501.1100 0.55-1.02 mg/dL Low CREAT,SERUM 0.48 Result Comment: The validity of the calculated GFR AND GFRAA in patients over 70 years has not been determined. Clinical correlation is essential. LAB L501.1110 >60 mL/min Normal EST GFR 135 Result Comment: Non- GFR Calc LAB L501.1115 >60 mL/min Normal EST GFR - AA 164 Result Comment: GFR Calc LAB L501.1255 ml/min Normal Estimated CRCL 48.45 LAB L501.1300 10-20 RATIO High BUN/CRE 22.7 LAB L501.1500 6.4-8. g/dL Low 2 T PROT 6.3 LAB L501.1800 3.2-5. g/dL Low 0 ALB 2.6 LAB L501.1950 2.2-4. g/dL Normal 2 GLOB 3.7 LAB L501.2000 0.9-2. RATIO Low 4 A/G 0.7 LAB L501.2200 8.5-10 mg/dL Low .1 CA 7.7 LAB L501.4100 15-37 U/L Normal AST 26 LAB L501.4305 45-117 U/L Normal ALK P 101 LAB L501.4405 13-56 U/L Normal ALT 33 LAB L501.4600 0.20-1 mg/dL Normal .00 T BILI 0.20 LAB L501.5300 136-14 mmol/L Normal 5 NA 143 LAB L501.5600 3.5-5. mmol/L Normal 1 K 3.5 LAB L501.5900 98-107 mmol/L High CL 111 LAB L501.6100 21.0-3 mmol/L Normal 2.0 CO2 23.0 LAB L501.6200 5-15 Normal GAP 9 Performed By: #### L500.4050 #### [facility] [address] [place], [place], [address] BEDSIDE GLUCOSE Collected: 11/07/2017 Status: F Source: [place] 10:01 PM [facility] REPOSITORY TYPE CODE TESTS RESULT OUT OF REFERENCE UNITS RANGE LAB L501.080 70-110 mg/dL High BEDSIDE GLU 182 Result Comment: MANAGEMENT OF PATIENT CARE PER NURSING PROTOCOL Performed By: #### L501.080 #### [facility] Point of Care [address] [place], [place] [address] URINE DRUG SCREEN Collected: 11/07/2017 Status: F Source: [place] ([place]IST[place]) 6:18 PM [facility] REPOSITORY Order Comment: List of Drugs Taken or Suspected? . TYPE CODE TESTS RESULT OUT OF RANGE REFERENCE UNITS LAB L505.0075 TO BE Normal CONFIRMED Result Comment: CONFIRMATORY TESTING FOR ALL POSITIVE URINE DRUG SCREEN RESULTS WILL ONLY BE SENT OUT UPON PHYSICIAN ORDER. VISTA Urine Drug Screen methods provide only preliminary analytical test results. A more specific alternate chemical method must be used in order to obtain a confirmed analytical result. Gas chromatography/mass spectrometery (GC/MS) is the preferred confirmatory method. Clinical consideration and professional judgement should be applied to any drug of abuse test result, particularly when preliminary positive results are used. URINE TCA TESTING MUST BE ORDERED SEPARATELY. USE TEST MNEMONIC: [facility] LAB L505.5005 VISTA UDS PH 6 Normal LAB L505.5015 <1000 ng/mL AMPHETAMINES Normal NEGATIVE LAB L505.5025 < 200 High ng/mL BARBITIURATES POSITIVE LAB L505.5035 < 200 ng/mL BENZODIAZIPINE Normal NEGATIVE LAB L505.5045 < 300 ng/mL COCAINE Normal NEGATIVE LAB L505.5055 < 500 High ng/mL ECSTACY POSITIVE LAB L505.5065 < 300 High ng/mL METHADONE POSITIVE LAB L505.5075 < 300 ng/mL OPIATES Normal NEGATIVE LAB L505.5085 < 25 ng/mL PCP Normal NEGATIVE LAB L505.5095 < 50 ng/mL THC Normal NEGATIVE Performed By: #### L505.5000 #### [facility] [address] [place], [address] BEDSIDE GLUCOSE Collected: 11/07/2017 Status: F Source: [place] 6:14 PM [facility] REPOSITORY TYPE CODE TESTS RESULT OUT OF RANGE REFERENCE UNITS LAB L501.080 70-110 mg/dL Normal BEDSIDE GLU 72 Result Comment: MANAGEMENT OF PATIENT CARE PER NURSING PROTOCOL Performed By: #### L501.080 #### [facility] Point of Care [address] [place] [address] HISTORY AND PHYSICAL Observed: 11/07/2017 Status: F Source: [place] EXAM 5:28 PM [facility] REPOSITORY [facility] Medical Records Department [address] [place] [address] History and Physical 11/07/17 1537 MR#: [id number] Acct: [id number] Name: XANDER RAMIREZ Rep #: [id number] : 1950 67 From: Tavo MARTINEZ PCP: Jose Alfredo LEACH,Patel Garvey Status: ADM IN Y Location: [facility] [place] [facility] [id number] ADDENDUM by Arielle Hensley on 11/07/17 at 1728 Code Visit ATTENDING PHYSICIAN NOTE: I have seen and examined the patient independently and agree with the assessment, plan, history per Tavo Patino as noted. Chief Complaint: The patient is a 67 y/o F w/ PMHx: Seizure disorder, Restless leg, CHUY noncompliant with CPAP, Chronic Hypoxic Respiratory Failure (2L NC q HS only), Tobacco use, Chronic COPD, Chronic pain syndrome, Hypertension, Anxiety and Depression/Insomnia who [facility]17 with history of onset severe diffuse joint discomfort and pain starting this past Tuesday with most recent evaluation per pain specialist the day prior without any event without any fevers or chills with poor intake and no appetite with mild nausea without emesis and possibly mild constipation. The emergency room workup included unremarkable CBC, ABG with pH 7.27, bicarb 13.2, oxygen saturation 93%, PCO2 28.4, PO2 73, CMP with sodium 135, carbon dioxide 17, glucose 65, AST/ALT 40/42, alk phos 133, troponin less than 0.015, lipase 49, urinalysis with 150 ketones, phenytoin level 7.9 ml, moderate acetone. Labs, Allergies, Home medications, Social Hx, PSurgHx, Family Hx per note below. Admission Review of Systems: CONSTITUTIONAL: No weight loss, fever, chills. + Anorexia, weakness or fatigue. HEENT: Eyes: No visual loss, blurred vision, double vision or yellow sclerae. Ears, Nose, Throat: No hearing loss, sneezing, congestion, runny nose or sore throat. SKIN: No rash or itching, lesions, wounds. CARDIOVASCULAR: No chest pain, chest pressure or chest discomfort, palpitations, edema, orthopnea, syncopal events. RESPIRATORY: No shortness of breath, cough or sputum, wheezing, hemoptysis. GASTROINTESTINAL: + anorexia, nausea, consiptation. No vomiting or diarrhea, abdominal pain, melena, BRBPR. GENITOURINARY: No dysuria, frequency, urgency or retention. NEUROLOGICAL: No headache, dizziness, syncope, paralysis, ataxia, numbness or tingling in the extremities, focal weakness, change in bowel or bladder control, seizure. MUSCULOSKELETAL: + Diffuse joing pains, aches. HEMATOLOGIC: No anemia, bleeding or bruising. LYMPHATICS: No enlarged nodes. No history of splenectomy. PSYCHIATRIC: + history of depression or anxiety. ENDOCRINOLOGIC: No reports of sweating, cold or heat intolerance. No polyuria or polydipsia. ALLERGIES: No history of asthma, hives, eczema or rhinitis. Admission VS: As noted below. Physical Examination: General: awake, alert, oriented x 3 and cooperative, seated upright in the ED bed in no apparent distress. Skin: normal color, turgor, no icterus, cyanosis, extremity various staged ecchymoses. HEENT: AT/NC, EOMI, PERRLA, mildly dry MM, no carotid bruits or JVD noted. Lungs: Diminished BS BL, > bases, mild effort, no rales, ronchi or wheezing. Heart: Regular rate and rhythm; no gallop, rub audible. Abdomen: soft, mild generalized TTP, ND, mildly hypoactive BS, no HSM. Extremities: no cyanosis, clubbing, diffuse TTP w/ movement joints, no erythema or marked edema. Neurological: patient awake, alert, oriented x 3; cognitive function intact; pupils equally reactive to light and accomodation; cranial nerves II-XII grossly normal, moving all 4 extremities, no focal deficits, strength severely globally decreased secondary to acute presentation. Psychiatric: affect appears normal, no acute evidence of depressive or anxiety feelings. Assessment and Plan: The patient is a 67 y/o F w/ PMHx: Seizure disorder, Restless leg, CHUY noncompliant with CPAP, Chronic Hypoxic Respiratory Failure (2L NC q HS only), Tobacco use, Chronic COPD, Chronic pain syndrome, Hypertension, Anxiety and Depression/Insomnia who [facility] on 11/07/17 with history of onset severe diffuse joint discomfort and pain starting this past Tuesday with most recent evaluation per pain specialist the day prior without any event without any fevers or chills with poor intake and no appetite with mild nausea without emesis and possibly mild constipation. (1) Suspected Viral Syndrome w/ Poor Intake, Dehydration leading to Metabolic Acidosis, Starvation Ketosis w/ Hypoglycemia: Unclear specific etiology for metabolic acidosis presentation, no marketed medications to elicit current presentation, not diabetic, given presentation suspected ketosis secondary to poor intake recently with resulting acidosis. Will admit to MedSurg, telemetry, obtain phenobarbital level, ammonia level, continue hydration, repeat CBC, CMP in a.m., monitor blood sugar secondary to noted mild hyperglycemia upon presentation, fall precautions, pending Tylenol level, alcohol level, UDS, respiratory viral syndrome panel. Additional Co-morbidities: Chronic constipation: KUB pending, bowel regimen. Chronic COPD w/ Chronic Hypoxic Respiratory Failure: Continue home O2 supplementation q HS, continue ATC duonebs, PRN albuterol, HOB, IS parameters. Tobacco Abuse: Encouraged cessation, inpatient consultation per RT, NR if desired. Seizure disorder: Continue home regimen Dilantin and phenobarbital, Dilantin level low in ED, pending phenobarbital level. Chronic Pain Syndrome: Maintain on patient home methadone and gabapentin regimen regimen. GERD: Famotidine. HTN: Holding lasix given hydration, PRN hydralazine. DVT Prophylaxis: SCDs, lovenox. Inpatient E AND M: [id number] Init Hosp L3 11/07/17 7038 <Electronically signed by Arielle Hensley > Date Arielle Hensley cc: JUAN Patino; Arielle Hensley; Patel Veliz MD * Signed Problem List (1) Acidosis Status: Acute (2) Generalized weakness Status: Chronic (3) Debility Status: Chronic History of Present Illness Date of Admission: 11/07/17 The patient is a 67 year old F who presented to the ER by squad from home after calling for generalized pain. She has chronic back pain for which she sees Dr. Andujar for pain management and is on high dose opiates. She developed severe all over body pain Tuesday. She has still been functioning at home despite this, she ambulates with a rollator. She has not been out of her apartment in 2 weeks and denies sick contacts. She lives alone. She has not eaten in 3 days either. She states she has no appetite and has been mildly nauseous though she has not vomited. Denies diarrhea. She has not had a bowel movement, but does note feel that she is constipated. She has some generalized abdominal pain, not localized. She denies dizziness, LH. She has a hx of COPD and seizures. She has not had a seizure in 2.5 years and denies new tremor or aura. She has no respiratory complaints. She is chronically mildly SOB and has a chronic cough. She smokes a ppd for 20 year now. No fever or chills. Occasional dysuria however UA negative for infection. CXR with hyperinflation. She is somewhat acidotic on ABG and has an elevated ketone level with low blood sugar. She is not diabetic, but again she has not eaten in three days, and has had minimal water intake. [] Past Medical History Past Medical History (Chronic Problems): Chronic Problems Generalized weakness (Chronic) Debility (Chronic) Depression (Chronic) Insomnia (Chronic) She takes Temazepam every night for sleep, prescribed by Dr. Veliz Hypertension (Chronic) Physical debility (Chronic) Degenerative disc disease, lumbar (Chronic) Pain, chronic (Chronic) Seizure disorder (Chronic) Restless leg syndrome (Chronic) Obstructive sleep apnea (Chronic) non-compliant with CPAP but has oxygen to wear at night Smokes with greater than 40 pack year history (Chronic) Allergies Penicillins Allergy (Verified 11/07/17 11:20) Anaphylaxis codeine Adverse Reaction (Verified 11/07/17 11:20) Nausea Home Medications: Ambulatory Orders Medication Instructions Recorded Surgical History: appendectomy, cholecystectomy, - - Fractured right ankle, carpal tunnel surgery, removal of teeth, right ovariectomy and fallopian tube removal. Psychiatric History: Depression - untreated BACK SIZER History: No pertinent BACK SIZER history Lives: Alone Smoking Status: Current every day smoker Tobacco Use: Cigarettes Alcohol: None Drugs: None - *Family History Maternal History Items: Diabetes Paternal History Items: Cancer - colon Sibling History Items: No pertinent history Review of Systems Constitutional: Reports: Malaise, - - generlized pain. Denies: Chills, Fever, Weight Change HEENT: Denies: Head Aches, Sinus Congestion, Sinus Drainage Cardiovascular: Denies: Chest Pain, Palpitations Respiratory: Denies: Cough, Shortness of breath at rest, Sputum production Gastrointestinal: Reports: Abdominal Pain, Nausea. Denies: Vomiting Genitourinary: Reports: Dysuria Musculoskeletal: Denies: Joint Pain, Joint Tenderness Skin: Denies: Rash, Wounds Neurological: Denies: Numbness, Tingling, Focal weakness Psychiatric: Denies: Anxiety, Depression, Homicidal Ideations, Suicidal Ideations Hematologic/ Lymphatic: Denies: Easy Bruising, Easy Bleeding VTE Information - Inpt Only VTE Present on Admission: No VTE Mechan Device Prophylaxis: SCD's VTE Pharm Prophylaxis ordered?: Yes Patient Problems: Active and Suspected Problems Acidosis (Acute) - Physical Exam General: Alert, Oriented x3, Cooperative HEENT: Atraumatic, PERRLA, EOMI, Normocephalic Neck: Supple, No JVD, Negative Carotid Bruits Lungs: Clear to auscultation, Normal air movement Cardiovascular: Regular rate, No murmurs Abdomen: Bowel Sounds Present, Soft, Non Tender, Tender - diffusely tender to light palp Extremities: No edema, Capillary Refill Less than 3 Seconds Skin: No rashes, No breakdown Musculoskeletal: No Tenderness to Palpation of Joints or Extremities Neurological: Cranial nerves II-XII grossly intact Psych/Mental Status: Normal Affect, Appropriate, Alert and oriented to time, place, person, mood and affect Vital Signs Temp Pulse Resp BP Pulse Ox 98.5 F 86 14 115/56 L 96 11/07/17 11:20 11/07/17 15:27 11/07/17 15:27 11/07/17 15:27 11/07/17 15:27 Assessment/Plan Active and Suspected Problems Acidosis (Acute) 1. Acidosis - suspect metabolic 2/2 starvation - low glucose with elevated ketone level, has not eaten in 3 days. Start IV fluids and aggressive antiemetics with yarn inspector consult and gently encourage PO intake. Generalized abdominal pain. Neg lipase. Mildly elevated Alk phos and AST. Avoid Tylenol containing products. Check acetaminophen level. LA is negative. Trop neg. CXR with hyperinflation. Check resp panel possibly viral syndrome but unlikely. No new respiratory complaints. Renal function normal. No recent seizure or prodrome activity. No new medication/OTC changes. 2. Generalized pain - suspect 2/2 chronic back pain. Pt of Dr. Andujar - continue home meds. Some increased Generlized abdominal pain and tenderness on exam - check KUB. 3. COPD - stable. PRN aerosols. CO2 low. 4. Debility - ambulatory with walker. PTOT. Encourage out of bed. 5. Nicotine abuse - patch if desired. Smokes 1 ppd for 20 years. 6. Hx seizures - low phenytoin level. Continue home meds. 7. ?Osteoporosis - on alendronate/ca2+/vitd DVT ppx: lovenox DC planning: PTOT This patient was seen by Tavo Patino PA-C under the supervision of Dr. Hensley. 11/07/17 3486 <Electronically signed by Tavo MARTINEZ> Date Tavo MARTINEZ 11/07/17 1718<Electronically signed by Arielle Hensley > Cosigner Signature: Date (if applicable) Arielle Hensley CC: JUAN Patino; Arielle Hensley; Patel Veliz MD Signed Observed: 11/07/2017 Status: F Source: [place] RESPIRATORY PANEL 5:15 PM [facility] MOLECULAR REPOSITORY RP PANEL ADENOVIRUS Not Detected HUMAN METAPHNEUMO Not Detected INFLUENZA A Not Detected INFLUENZA A (SUBTYPE H1) Not Detected INFLUENZA A (SUBTYPE H3) Not Detected INFLUENZA B Not Detected PARAINFLUENZA 1 Not Detected PARAINFLUENZA 2 Not Detected PARAINFLUENZA 3 Not Detected PARAINFLUENZA 4 Not Detected RHINOVIRUS Not Detected RSV A Not Detected RSV B Not Detected NAAT METHOD Testing was performed using nucleic acid amplification Performed By: #### M100.638 #### [facility] [address] [place], [place], [id number] ACETAMINOPHEN (TYLENOL) Collected: 11/07/2017 Status: F Source: [place] LEVEL 4:55 PM [facility] REPOSITORY TYPE CODE TESTS RESULT OUT OF REFERENCE UNITS RANGE LAB L501.8400 10.0-30.0 ug/mL ACETAMINOPHEN Low < 2.0 Performed By: #### L501.8400, L501.8500, L501.9100 #### [facility] [address] [facility]. [place], [place], [id number] PHENOBARBITAL Collected: 11/07/2017 Status: F Source: [place] 4:55 PM [facility] REPOSITORY TYPE CODE TESTS RESULT OUT OF RANGE REFERENCE UNITS LAB L501.8500 10.0-40.0 ug/mL Normal PHENOBARB 12.9 Performed By: #### L501.8400, L501.8500, L501.9100 #### [facility] [address] [place], [place], [id number] ALCOHOL, BLOOD Collected: 11/07/2017 Status: F Source: [place] (MEDICAL)-SERUM 4:55 PM [facility] REPOSITORY TYPE CODE TESTS RESULT OUT OF RANGE REFERENCE UNITS LAB L501.9100 mg/dL Normal SERUM 10.0 ETOH Result Comment: The serum:whole blood ethanol ratio is approximately 1.14 and varies slightly with hematocrit. Medical Alcohol reference interval and critical value in non-tolerant individuals; 50 - 100 Impairment 100 Intoxication 100 - 250 Severe Poisoning 250 - 400 Deep/possible fatal coma Performed By: #### L501.8400, L501.8500, L501.9100 #### [facility] [address] [facility]. [place], [place], [id number] AMMONIA Collected: 11/07/2017 Status: F Source: [place] 4:55 PM [facility] REPOSITORY TYPE CODE TESTS RESULT OUT OF RANGE REFERENCE UNITS LAB L503.5510 11-32 umol/L Normal AMMONIA 32.0 Performed By: #### L503.5510 #### [facility] [address] [place], [address] ABDOMEN SINGLE VIEW Observed: 11/07/2017 Status: F Source: [place] 3:53 PM [facility] REPOSITORY [facility] Imaging Services [address] [place] [address] Abdomen Single View MR#: [id number] Acct: [id number] Name: XANDER RAMIREZ Rep #: [id number] : 1950 F 67 From: Rocco Christiansen MD PCP: Patel Veliz MD, Chi Status: ADM IN Study: Abdomen Single View Date of Exam: 11/07/17 Exam# [id number] Ordering Dr: Tavo Patino STUDY: X-RAY - ABDOMEN/PELVIS REASON FOR EXAM: Female, 67 years old. PATIENT COMPLAINS OF GENERALIZED ABDOMINAL PAIN TECHNIQUE: Single AP view of the abdomen / pelvis. COMPARISON: None. FINDINGS: Normal visualized lung bases. There are multiple metallic clips in the right upper quadrant. This is consistent for a cholecystectomy. There is an unremarkable bowel gas pattern. There is no demonstrated free abdominal air. The visualized liver, spleen and kidneys are grossly normal in size and morphology. Total right hip arthroplasty. Normal soft tissue structures. There are diffuse degenerative changes of the visualized lumbar spine. RAD/Abdomen Single View IMPRESSION: Normal x-ray examination of the abdomen and pelvis. Electronically Signed: Rocco Christiansen MD at 17:39 EDT , Service support , CC: JUAN Patino; Patel Veliz MD Extraction Operator: Signed LACTIC ACID Collected: 11/07/2017 Status: F Source: [place] 2:10 PM [facility] REPOSITORY Order Comment: Yes/No query for Sepsis Lactate Rule Y TYPE CODE TESTS RESULT OUT OF RANGE REFERENCE UNITS LAB L503.6005 0.4-2.0 mmol/L Normal LACTIC ACID 0.8 Performed By: #### L503.6005 #### [facility] [address] [facility] [place], [address] BLOOD GASES BY CPS Collected: 11/07/2017 Status: F Source: [place] 1:46 PM [facility] REPOSITORY TYPE CODE TESTS RESULT OUT OF RANGE REFERENCE UNITS LAB L9000.9990 Normal BLD GAS TYPE ART LAB L9001.1000 L Normal SITE Brachial LAB L9001.1010 NA Normal AISHA TEST LAB L9001.1050 O2 Normal Delivery Dev Room Air LAB L9001.1104 ED Normal Results To MD LAB L9001.1105 Normal Time Given 1345 LAB L9001.1110 7.35-7.45 Low pH - I-STAT 7.27 LAB L9001.1210 35-45 mmHg Low pCO2 - ISTAT 28.4 LAB L9001.1310 75-100 mmHG Low 73 PO2 I-STAT LAB L9001.2300 22-26 mmol/L Low HCO3 ISTAT 13.2 LAB L9001.2400 -2 to +2 mmol/L Low BE ISTAT -14 LAB L9001.2415 mmol/L 14 Normal TOTAL CO2 ISTAT LAB L9001.2425 95-99 % Low 93 SO2 ISTAT Performed By: #### L9000.0800 #### [facility] Point of Care [address] [place] [address] ACETONE SERUM Collected: 11/07/2017 Status: F Source: [place] 1:40 PM [facility] REPOSITORY TYPE CODE TESTS RESULT OUT OF REFERENCE UNITS RANGE LAB L501.6900 NEG High ACETONE SERUM MODERATE Performed By: #### L501.6900, L501.7700 #### [facility] [address] [place], [address] PHENYTOIN (DILANTIN) Collected: 11/07/2017 Status: F Source: [place] LEVEL 1:40 PM [facility] REPOSITORY TYPE CODE TESTS RESULT OUT OF REFERENCE UNITS RANGE LAB L501.7700 10.0-20.0 mL Low PHENYTOIN 7.9 Performed By: #### L501.6900, L501.7700 #### [facility] [address] [place], [place], [address] URINALYSIS, COMPLETE Collected: 11/07/2017 Status: F Source: [place] 1:00 PM [facility] REPOSITORY Order Comment: How was Urine Obtained? CLEAN CATCH TYPE CODE TESTS RESULT OUT OF RANGE REFERENCE UNITS LAB L400.3000 Yellow COLOR Normal Yellow LAB L400.3050 Clear Normal CLARITY Sl. Cloudy LAB L400.3200 Normal mg/dl Normal GLUCOSE, UR Normal LAB L400.3300 Negative mg/dL Normal BILIRUBIN URINE Negative LAB L400.3400 Negative mg/dl High KETONE UR 150 Result Comment: CRITICAL VALUE *H CRITICAL VALUE VERIFIED. CALLED TO ELAYNE REYES 11/07/17 1316 Jerel Staton. RESULTS READ BACK BY SAME. LAB L400.3465 1.002-1.030 Normal SP.GR. DIPSTX 1.025 LAB L400.3550 5.0 - 8.0 pH Normal UR 6.0 LAB L400.3600 Negative mg/dl High 15 PROT DIPSTX LAB L400.3700 Normal mg/dl Normal UROBILI Normal LAB L400.3750 Negative Normal NITRITE UR Negative LAB L400.3780 Negative /ul High 10 OCCULT BLOOD-UR LAB L400.3800 Negative /ul Normal LEUK ESTERASE Negative LAB L400.4050 0-5 /hpf 0 Normal WBC SEEN LAB L400.4100 0-5 /hpf Normal RBC-UA 0-5 SEEN LAB L400.4150 5-10 /hpf Normal SQUAM EPI 0-5 SEEN LAB L400.4300 None Seen /hpf 0 Normal BACTERIA SEEN LAB L400.4350 <or=2+ /hpf 1+ Normal MUCUS, URINE Performed By: #### L400.0001 #### [facility] [address] [place], [place], [address] CBC W/DIFF, AUTOMATED Collected: 11/07/2017 Status: F Source: [place] 12:05 PM [facility] REPOSITORY TYPE CODE TESTS RESULT OUT OF RANGE REFERENCE UNITS LAB L100.1000 4.4-11.0 K/mm3 Normal WBC 6.4 LAB L100.1200 4.2-5.4 M/mm3 Normal RBC 4.50 LAB L100.1300 12.0-15.0 g/dl Normal HGB 13.8 LAB L100.1400 37-47 % Normal HCT 43.0 LAB L100.1500 81-99 fL Normal MCV 95.6 LAB L100.1600 27.0-32.0 pg Normal MCH 30.7 LAB L100.1700 32-36 g/gl Normal MCHC 32.1 LAB L100.1810 11.6-14.6 % Normal RDW CV 13.8 LAB L100.1820 35.1-43.9 fl High RDW SD 47.2 LAB L100.1900 150-450 K/mm3 Normal PLT 224 LAB L100.2000 6.2-12.0 fl Normal MPV 9.4 LAB L100.2100 47-70 % Normal NEUT% 61.4 LAB L100.2200 19-41 % Normal LY% 25.7 LAB L100.2300 0-10 % Normal MONO% 8.5 LAB L100.2400 0-5 % Normal EO% 3.3 LAB L100.2500 0-1 % Normal BASO% 0.6 LAB L100.2550 0.0-0.9 % Normal IM GRAN % 0.500 Result Comment: IG% - Immature Granulocytes (promyelocytes, myelocytes and metamyelocytes) > 1% indicates that a LEFT SHIFT is Present. LAB L100.2620 2.0-7.7 X10 3/uL Normal Absolute Neut 3.9 LAB L100.2720 0.83-4.51 X10 3/ul Normal Absolute Lymph 1.64 Performed By: #### L100.0100 #### [facility] [address] [place], [place], [id number] COMPREHENSIVE METABOLIC Collected: 11/07/2017 Status: F Source: [place] 12:05 PM [facility] REPOSITORY TYPE CODE TESTS RESULT OUT OF RANGE REFERENCE UNITS LAB L501.0100 74-106 mg/dL Low GLU 65 Result Comment: Please note revised GLUCOSE reference range effective 2017. LAB L501.1000 7-18 mg/dL Normal BUN 12 LAB L501.1100 0.55-1.02 mg/dL Normal CREAT,SERUM 0.58 Result Comment: The validity of the calculated GFR AND GFRAA in patients over 70 years has not been determined. Clinical correlation is essential. LAB L501.1110 >60 mL/min Normal EST GFR 110 Result Comment: Non- GFR Calc LAB L501.1115 >60 mL/min Normal EST GFR - AA 133 Result Comment: GFR Calc LAB L501.1255 ml/min Normal Estimated CRCL 48.45 LAB L501.1300 10-20 RATIO High BUN/CRE 20.8 LAB L501.1500 6.4-8. g/dL Normal 2 T PROT 7.7 LAB L501.1800 3.2-5. g/dL Low 0 ALB 3.1 LAB L501.1950 2.2-4. g/dL High 2 GLOB 4.6 LAB L501.2000 0.9-2. RATIO Low 4 A/G 0.7 LAB L501.2200 8.5-10 mg/dL Low .1 CA 7.9 LAB L501.4100 15-37 U/L High AST 40 Result Comment: Moderate Hemolysis, Result may be falsely increased. LAB L501.4305 45-117 U/L High ALK P 133 LAB L501.4405 13-56 U/L Normal ALT 42 LAB L501.4600 0.20-1.00 mg/dL Normal T BILI 0.40 LAB L501.5300 136-145 mmol/L Low NA 135 LAB L501.5600 3.5-5.1 mmol/L Normal K 4.1 Result Comment: Moderate Hemolysis, Result may be falsely increased. LAB L501.5900 98-107 mmol/L Normal CL 105 LAB L501.6100 21.0-32.0 mmol/L Low CO2 17.0 LAB L501.6200 5-15 Normal GAP 13 Performed By: #### L500.4050, L501.2450, L501.4010 #### [facility] [address] [place], [address] LIPASE Collected: 11/07/2017 Status: F Source: [place] 12:05 PM [facility] REPOSITORY TYPE CODE TESTS RESULT OUT OF REFERENCE UNITS RANGE LAB L501.2450 73-393 U/L Low LIPASE 49 Performed By: #### L500.4050, L501.2450, L501.4010 #### [facility] [address] [place], [address] TROPONIN-I Collected: 11/07/2017 Status: F Source: [place] 12:05 PM [facility] REPOSITORY TYPE CODE TESTS RESULT OUT OF RANGE REFERENCE UNITS LAB L501.4010 <0.045 ng/mL Normal < 0.015 TROPONIN-I Result Comment: TROPONIN-I EXPECTED VALUES <0.045 Negative 0.045 - 0.590 Consistent with Cardiac Damage > OR = 0.600 Critical Value Not every elevated troponin is indicative of DE. These values should be used with clinical judgement in examining the patient's clinical picture for diagnosis. To establish a diagnosis of DE versus myocardial injury, there must be a demonstrated rise and/or fall in the troponin values, in addition to ischemic symptoms, EKG changes, new regional wall motion abnormality, and/or angiographical evidence. PLEASE NOTE: REFERENCE RANGES EDITED 17 Performed By: #### L500.4050, L501.2450, L501.4010 #### [facility] [address] [place], [address] PHOSPHORUS Collected: 11/07/2017 Status: F Source: [place] 12:05 [facility] REPOSITORY TYPE CODE TESTS RESULT OUT OF RANGE REFERENCE UNITS LAB L501.2300 2.5-4.9 mg/dL Normal PHOS 2.5 Performed By: #### L501.2300, L501.5200 #### [facility] [address] [place], [address] MAGNESIUM Collected: 11/07/2017 Status: F Source: [place] 12:05 PM [facility] REPOSITORY TYPE CODE TESTS RESULT OUT OF RANGE REFERENCE UNITS LAB L501.5200 1.6-2.6 mg/dL Normal MG 2.3 Performed By: #### L501.2300, L501.5200 #### [facility] [address] [place], [address] CHEST PA AND LATERAL Observed: 11/07/2017 Status: F Source: [place] 11:35 AM [facility] REPOSITORY [facility] Imaging Services [address] [place] [address] Chest PA and Lateral MR#: [id number] Acct: [id number] Name: XANDER RAMIREZ Rep #: [id number] : 1950 F 67 From: Isaias Munroe MD PCP: Jose Alfredo LEACH,Patel Garvey Status: REG ER Study: Chest PA and Lateral Date of Exam: 11/07/17 Exam# [id number] Ordering Dr: Daniel Connolly DO STUDY: X-RAY CHEST REASON FOR EXAM: Female, 67 years old. Generalized illness. Weakness. TECHNIQUE: AP and lateral views of the chest. COMPARISON: Comparison is made with prior study dated September 04, 2017. FINDINGS: EKG electrodes are seen. Hyperinflation. The lungs are clear. There is no demonstrated pleural abnormality. Normal size heart. Normal mediastinum and denae. Normal visualized pulmonary arteries. Normal visualized aortic arch and descending thoracic aorta. There are degenerative changes of the visualized thoracic spine. There is degenerative osteoarthritis of the bilateral shoulders. There is no demonstrated abnormality of the visualized soft tissue structures of the upper abdomen. RAD/Chest PA and Lateral IMPRESSION: Hyperinflation. Electronically Signed: Isaias Munroe MD at 13:23 EDT Tel [phone], Service support , CC: Daniel Connolly DO; Patel Veliz MD Extraction Operator: Signed URINE DRUG SCREEN Collected: 11/03/2017 Status: F Source: [place] (VISTA) 3:15 PM [facility] REPOSITORY Order Comment: Comments: [id number] URINE DRUG SCREEN RUN LOWEST TEST List of Drugs Taken or Suspected? UNK TYPE CODE TESTS RESULT OUT OF RANGE REFERENCE UNITS LAB L505.0075 TO BE Normal CONFIRMED Result Comment: CONFIRMATORY TESTING FOR ALL POSITIVE URINE DRUG SCREEN RESULTS WILL ONLY BE SENT OUT UPON PHYSICIAN ORDER. VISTA Urine Drug Screen methods provide only preliminary analytical test results. A more specific alternate chemical method must be used in order to obtain a confirmed analytical result. Gas chromatography/mass spectrometery (GC/MS) is the preferred confirmatory method. Clinical consideration and professional judgement should be applied to any drug of abuse test result, particularly when preliminary positive results are used. URINE TCA TESTING MUST BE ORDERED SEPARATELY. USE TEST MNEMONIC: [facility] LAB L505.5005 VISTA UDS PH 5 Normal LAB L505.5015 <1000 ng/mL AMPHETAMINES Normal NEGATIVE LAB L505.5025 < 200 High ng/mL BARBITIURATES POSITIVE LAB L505.5035 < 200 ng/mL BENZODIAZIPINE Normal NEGATIVE LAB L505.5045 < 300 ng/mL COCAINE Normal NEGATIVE LAB L505.5055 < 500 High ng/mL ECSTACY POSITIVE LAB L505.5065 < 300 High ng/mL METHADONE POSITIVE LAB L505.5075 < 300 ng/mL OPIATES Normal NEGATIVE LAB L505.5085 < 25 ng/mL PCP Normal NEGATIVE LAB L505.5095 < 50 ng/mL THC Normal NEGATIVE Performed By: #### L505.5000 #### [facility] [place], [address] MISCELLANEOUS LAB Collected: 11/03/2017 Status: F Source: [place] PROCEDURE 3:15 PM [facility] REPOSITORY Order Comment: Comments: [id number] URINE DRUG SCREEN RUN LOWEST TEST Test(s) Ordered: [id number] URINE DRUG SCREEN RUN LOWEST TEST TYPE CODE TESTS RESULT OUT OF RANGE REFERENCE UNITS LAB L801.1541 Normal [facility] TEST Result Comment: TEST RESULT UNITS REF INTERVAL [id number] 6+Oxycodone-Bund Amphetamines, Urine Negative ng/mL Fvhkyt=1003 Amphetamine test includes Amphetamine and Methamphetamine. Barbiturates Positive Ozwahg=058 Amobarbital Negative Zabxka=055 Secobarbital Negative Orhddt=280 Butalbital Negative Qggwbn=674 Pentobarbital Negative Tjtbzt=930 Phenobarbital Positive Phenobarbital GC/MS Conf >3000 ng/mL Hgtesl=163 Benzodiazepines Negative ng/mL Nzjvye=359 Cannabinoids Negative ng/mL Cutoff=20 Cocaine (Metabolite) Negative ng/mL Kkbiri=970 Opiates Negative ng/mL Ijmapu=929 Opiate test includes Codeine, Morphine, Hydromorphone, Hydrocodone. Oxycodone/Oxymorphone, Urine Negative ng/mL Tynflj=392 Test includes Oxycodone and Oxymorphone TESTING PERFORMED AT [facility]. ORIGINAL REPORT ON FILE IN LAB CONTAINS ADDITIONAL TEST SITE INFORMATION. Performed By: #### L801.1541 #### [facility] [place], [address] [facility] Collected: 11/03/2017 Status: F Source: [place] PROCEDURE 2 3:15 PM [facility] REPOSITORY Order Comment: Comments: [id number] URINE DRUG SCREEN RUN LOWEST TEST List Test(s) Ordered by Physician: [id number] METHADONE URINE TYPE CODE TESTS RESULT OUT OF RANGE REFERENCE UNITS LAB L801.1543 Normal [facility] LAB TEST 2 Result Comment: TEST RESULT LIMITS Methadone Screen, Urine Methadone Screen, Urine Positive ng/mL [id number] Please Note: This assay provides a preliminary unconfirmed analytical test result that may be suitable for clinical management of patients in certain situations. Drug-test results should be interpreted in the context of clinical information. Patient metabolic variables, specific drug chemistry, and specimen characteristics can affect test outcome. Technical consultation is available if a test result is inconsistent with an expected outcome. ([email or web address] or call toll-free [phone]) TESTING PERFORMED AT [facility]. ORIGINAL REPORT ON FILE IN LAB CONTAINS ADDITIONAL TEST SITE INFORMATION. Performed By: #### L801.1543 #### [facility] [address] [place], [address] 12 LEAD ELECTROCARDIOGRAM Observed: 09/06/2017 Status: F Source: [place] 3:20 PM [facility] REPOSITORY [facility] Cardiovascular Services [address] [place] [address] 12 Lead EKG 09/04/17 2142 MR#: [id number] Acct: [id number] Name: XANDER RAMIREZ Rep #: [id number] : 1950 67 From: Tank Hernandez MD Attending Dr: Status: DEP ER Ordering Dr: Sheng Melendez MD Date: 09/04/17 Location: ED Sex: F C Admitted: Test Reason : CP Blood Pressure : / mmHG Vent. Rate : 098 BPM Atrial Rate : 098 BPM P-R Int : 158 ms QRS Dur : 084 ms QT Int : 356 ms P-R-T Axes : 071 006 016 degrees QTc Int : 454 ms Normal sinus rhythm Normal ECG Confirmed by TANK HERNANDEZ MD ([id number]), web content editor GOPI RAMIREZ ([id number]) on 09/06/2017 3:20:10 PM Referred By: [facility] Confirmed By:TANK HERNANDEZ MD 09/06/17 152 Date Tank Hernandez MD CC: Sheng Melendez MD; Patel Veliz MD Signed EMERGENCY DEPARTMENT Observed: 09/05/2017 Status: F Source: [place] SUMMARY 6:52 PM [facility] REPOSITORY [facility] Medical Records Department [address] [place] [address] Emergency Department Summary 09/05/17 1136 MR#: [id number] Acct: [id number] Name: FLORESITA RAMIREZShauna Hernandez Rep #: [id number] : 1950 67 From: Peng Pastrana MD PCP: Jose Alfredo LEACH,Patel Garvey Status: DEP ER - ER Visit Summary Date of Service: 09/05/17 Chief Complaint: Hemorrhoids History of Present Illness: The patient is a [address] Veliz and Dr. Andujar. She reports that she has pain from her hemorrhoids that began yesterday. States the sharp pains 10 at 10 severity. Is worsened by laying her back. She relieved by nothing including the methadone that she is on. She has been using Preparation H for this. She denies any blood in her stools or black tarry stools. She denies any abdominal pain. Review of systems: General: No fever, chills, cold sweats. Cardiovascular: No chest pain, palpitations. Respiratory: No cough, shortness of breath, dyspnea on exertion. Gastrointestinal: No abdominal pain, nausea, vomiting, diarrhea, melena, or hematochezia. Genitourinary: No dysuria, frequency, hematuria. Skin: No rash. Neuro: No headache, numbness, weakness. Physical Examination: Vitals: Stable. Afebrile. General: Well-nourished and well-developed. Head: Normocephalic atraumatic. Neck: Supple, no lymphadenopathy. No JVD. Nontender. Cardiovascular: Regular rate and rhythm. No murmurs. Respiratory: No respiratory distress. Clear to auscultation bilaterally. Abdominal: Soft, nontender, nondistended, normal bowel sounds. No guarding, rebound, or peritoneal signs. Rectal: Inflamed external hemorrhoids with no thrombosis or bleeding. Back: Nontender. Extremities: Nontender, no edema. Skin: Normal color, no rash. Neurologic: Alert and oriented 3. Cranial nerves II through XII are intact. Normal strength and sensation. Psych: Normal affect. Emergency Department Course and Treatment: I had a prolonged discussion the patient that opiate medications are not appropriate for hemorrhoids. The patient was here 12 hours ago with the same complaint. I did obtain to obtain an OARS report and it came back as forwarded to your server security administrator. The patient is in pain management and on methadone. Treatment Plan: Patient will be discharged with [facility] and instructed to follow-up with Dr. Taylor in 1-2 weeks if not improving. Disposition: To home in improved and stable condition. Impression: 1. External hemorrhoids. 2. Opiate seeking behavior. This note was generated with [employer] dictation software. It may contain incorrect words, spelling, and punctuation that were not noted in review of the chart prior to signing ED Disposition - Plan for ED Patient: Disposition: Home or Assisted Living Chief Complaint: Other, Pain/Inj Instructions: Treating Hemorrhoids: Self-Care Prescriptions: Hydrocortisone [Anusol Hc] 25 mg RECTAL TID PRN PRN #20 suppos. PRN Reason: Pain Referrals: Daniel Taylor MD [STAFF PHYSICIAN] - 1-2 Weeks What to do if you have Problems For any increased pain, shortness of breath, bleeding, nausea or vomiting, chest pain, or any unexpected problems, contact your Primary Care Provider. Call [facility] ([phone]) or report to the closest Emergency Room. Call 911 if necessary. 09/05/17 185 <Electronically signed by Peng Pastrana MD> Date Peng Pastrana MD Cosigner Signature (If Indicated): Date CC: Patel Veliz MD EMERGENCY DEPARTMENT Observed: 09/05/2017 Status: F Source: [place] SUMMARY 7:00 AM [facility] Medical Records Department [address] [place] [address] Emergency Department Summary 09/04/17 2227 MR#: [id number] Acct: [id number] Name: XANDER RAMIREZ Rep #: [id number] : 1950 67 From: Sheng Melendez MD PCP: Patel Veliz MD, Chi Status: DEP ER - ER Visit Summary Date of Service: 09/04/17 Chief Complaint: Chest pain History of Present Illness: The patient is a 67 F COPD not on O2. States at noon today she started having chest pain. Describes a dull ache radiating her left neck. She denies any associated dyspnea. No nausea. No diaphoresis. Patient cardiac catheterization done 1 year ago which was negative. She has never had a DVT or PE. She denies any recent travel surgery or hospitalization within the last month. She denies any leg swelling, calf pain or hemoptysis. There is no pleuritic nature to the pain. Nothing specifically makes it better or worse. Physical Examination: Older female no acute distress vital signs are stable afebrile. Pulse ox 93% on room air no hypoxia. H EENT exam unremarkable. Neck nontender. No lymphadenopathy. Lungs clear to auscultation bilaterally. Heart regular rhythm no murmur. Chest wall nontender. No ecchymosis or bruising no subcu air. Abdomen soft nontender. Normal bowel sounds no peritoneal signs. She is moving all 4 extremities. There is no edema. Calves are nontender without cords. Neurologically she is awake and alert with no focal deficits. She does have also a complaint of rectal hemorrhoids. There is inflamed hemorrhoids but no active bleeding. Test Results: CBC normal. BMP unremarkable. Normal creatinine and gap. Troponin normal. EKG sinus rhythm rate of 98 with no acute signs of DE or ischemia unchanged from prior EKGs from June of this year. Chest x-ray no acute process read both by myself and the radiologist. Emergency Department Course and Treatment: She will undergo cardiac workup received p.o. aspirin and sublingual nitro. Treatment Plan: Repeat exam patient is doing well at 2358. She is currently being discharged home. She tells me she had a recent cardiac catheterization in the last several months that was negative. Her chest pain does not appear to be cardiac either by history, exam or labs. She continues Preparation H for her hemorrhoids. Disposition: Discharge Impression: Chest pain of uncertain etiology Acute hemorrhoids This note was generated with [employer] dictation software. It may contain incorrect words, spelling, and punctuation that were not noted in review of the chart prior to signing ED Disposition - Plan for ED Patient: Chief Complaint: Chest Pain Referrals: Patel Veliz Chi, MD [Primary Care Provider] - What to do if you have Problems For any increased pain, shortness of breath, bleeding, nausea or vomiting, chest pain, or any unexpected problems, contact your Primary Care Provider. Call [facility] ([phone]) or report to the closest Emergency Room. Call 911 if necessary. 09/05/17 07 <Electronically signed by Sheng Melendez MD> Date Sheng Melendez MD Cosigner Signature (If Indicated): Date CC: Patel Veliz MD DISCHARGE INSTRUCTION Observed: 09/05/2017 Status: F Source: [place] 7:00 AM [facility] REPOSITORY [facility] Medical Records Department [address] [place] [address] Discharge Instruction 09/05/17 0002 MR#: [id number] Acct: [id number] Name: XANDER RAMIREZ Rep #: [id number] : 1950 67 From: Sheng Melendez MD PCP: Patel Veliz MD, Chi Status: DEP ER ED Disposition - Plan for ED Patient: Disposition: Home or Assisted Living Chief Complaint: Chest Pain Instructions: ED Chest Pain Atypical Unkn Cause, ED Hemorrhoids Referrals: Patel Veliz Chi, MD [Primary Care Provider] - 3-5 Days if not improving Additional Instructions: All your labs were normal tonight. Preparation H or Anusol and warm soaks for your hemorrhoids. What to do if you have Problems For any increased pain, shortness of breath, bleeding, nausea or vomiting, chest pain, or any unexpected problems, contact your Primary Care Provider. Call [facility] ([phone]) or report to the closest Emergency Room. Call 911 if necessary. 09/05/17 07 <Electronically signed by Sheng Melendez MD> Date Sheng Melendez MD Cosigner Signature (If Indicated): Date CC: Patel Veliz MD CBC W/DIFF, AUTOMATED Collected: 09/04/2017 Status: F Source: [place] 10:47 PM [facility] REPOSITORY TYPE CODE TESTS RESULT OUT OF RANGE REFERENCE UNITS LAB L100.1000 4.4-11.0 K/mm3 Normal WBC 8.4 LAB L100.1200 4.2-5.4 M/mm3 Normal RBC 4.29 LAB L100.1300 12.0-15.0 g/dl Normal HGB 13.0 LAB L100.1400 37-47 % Normal HCT 41.0 LAB L100.1500 81-99 fL Normal MCV 95.6 LAB L100.1600 27.0-32.0 pg Normal MCH 30.3 LAB L100.1700 32-36 g/gl Low MCHC 31.7 LAB L100.1810 11.6-14.6 % Normal RDW CV 13.4 LAB L100.1820 35.1-43.9 fl High RDW SD 46.6 LAB L100.1900 150-450 K/mm3 Normal PLT 177 LAB L100.2000 6.2-12.0 fl Normal MPV 9.4 LAB L100.2100 47-70 % Normal NEUT% 61.3 LAB L100.2200 19-41 % Normal LY% 27.8 LAB L100.2300 0-10 % Normal MONO% 9.3 LAB L100.2400 0-5 % Normal EO% 1.3 LAB L100.2500 0-1 % Normal BASO% 0.2 LAB L100.2550 0.0-0.9 % Normal IM GRAN % 0.100 Result Comment: IG% - Immature Granulocytes (promyelocytes, myelocytes and metamyelocytes) > 1% indicates that a LEFT SHIFT is Present. LAB L100.2620 2.0-7.7 X10 3/uL Normal Absolute Neut 5.1 LAB L100.2720 0.83-4.51 X10 3/ul Normal Absolute Lymph 2.33 Performed By: #### L100.0100 #### [facility] [address] [place], [address] BASIC METABOLIC Collected: 09/04/2017 Status: F Source: [place] PROFILE (BMP) 10:47 PM [facility] REPOSITORY Order Comment: 'TROP' Serial specimen #1, #2, #3, or #4: 1 TYPE CODE TESTS RESULT OUT OF RANGE REFERENCE UNITS LAB L501.0100 74-106 mg/dL Normal GLU 101 Result Comment: Fasting Glucose result from 100 to 125 mg/dL suggests IMPAIRED HOMEOSTASIS per A.D.A. criteria. Please note revised GLUCOSE reference range effective 2017. LAB L501.1000 7-18 mg/dL Normal BUN 13 LAB L501.1100 0.55-1.02 mg/dL Low CREAT,SERUM 0.50 Result Comment: The validity of the calculated GFR AND GFRAA in patients over 70 years has not been determined. Clinical correlation is essential. LAB L501.1110 >60 mL/min Normal EST GFR 129 Result Comment: Non- GFR Calc LAB L501.1115 >60 mL/min Normal EST GFR - AA 156 Result Comment: GFR Calc LAB L501.1255 ml/min Normal Estimated CRCL 48.45 LAB L501.1300 10-20 RATIO High BUN/CRE 25.7 LAB L501.2200 8.5-10 mg/dL Low .1 CA 8.2 LAB L501.5300 136-14 mmol/L High 5 NA 146 LAB L501.5600 3.5-5. mmol/L Low 1 K 3.2 LAB L501.5900 98-107 mmol/L High CL 109 LAB L501.6100 21.0-3 mmol/L Normal 2.0 CO2 26.0 LAB L501.6200 5-15 Normal GAP 11 Performed By: #### L500.2500, L501.4010 #### [facility] [address] [place], [place], [address] TROPONIN-I Collected: 09/04/2017 Status: F Source: [place] 10:47 PM [facility] REPOSITORY Order Comment: 'TROP' Serial specimen #1, #2, #3, or #4: 1 TYPE CODE TESTS RESULT OUT OF RANGE REFERENCE UNITS LAB L501.4010 <0.06 ng/mL Normal < 0.02 TROPONIN-I Result Comment: TROPONIN-I EXPECTED VALUES <0.05 NEGATIVE 0.06 - 0.59 AT RISK OF DE > OR = 0.60 SUGGEST DE Performed By: #### L500.2500, L501.4010 #### [facility] [address] [place], [address] CHEST 1 VIEW Observed: 09/04/2017 Status: F Source: [place] (PORTABLE) 10:26 PM [facility] REPOSITORY [facility] Imaging Services [address] [place] [address] Chest 1 View (Portable) MR#: [id number] Acct: [id number] Name: XANDER RAMIREZ Rep #: [id number] : 1950 F 67 From: Terrance Lara MD PCP: Patel Veilz MD, Chi Status: REG ER Study: Chest 1 View (Portable) Date of Exam: 09/04/17 Exam# [id number] Ordering Dr: Sheng Melendez MD STUDY: X-RAY CHEST REASON FOR EXAM: Female, 67 years old. Chest pain TECHNIQUE: Single AP portable view of the chest. COMPARISON: 07/03/2017. FINDINGS: The lungs are clear and expanded. There is no demonstrated pleural abnormality. Normal size heart. Normal mediastinum and denae. Normal visualized pulmonary arteries. Normal visualized aortic arch and descending thoracic aorta. Normal visualized thoracic spine. There is degenerative osteoarthritis of the bilateral shoulders. There is no demonstrated abnormality of the visualized soft tissue structures of the upper abdomen. RAD/Chest 1 View (Portable) IMPRESSION: Normal x-ray examination of the chest. Electronically Signed: Terrance Lara MD at 23:19 EDT , Service support , CC: Sheng Melendez MD; Patel Veliz MD Extraction Operator: Signed CBC W/DIFF, AUTOMATED Collected: 08/22/2017 Status: F Source: [place] 3:37 PM [facility] REPOSITORY TYPE CODE TESTS RESULT OUT OF RANGE REFERENCE UNITS LAB L100.1000 4.4-11.0 K/mm3 Normal WBC 6.4 LAB L100.1200 4.2-5.4 M/mm3 Normal RBC 4.28 LAB L100.1300 12.0-15.0 g/dl Normal HGB 13.5 LAB L100.1400 37-47 % Normal HCT 41.7 LAB L100.1500 81-99 fL Normal MCV 97.4 LAB L100.1600 27.0-32.0 pg Normal MCH 31.5 LAB L100.1700 32-36 g/gl Normal MCHC 32.4 LAB L100.1810 11.6-14.6 % Normal RDW CV 13.6 LAB L100.1820 35.1-43.9 fl High RDW SD 47.8 LAB L100.1900 150-450 K/mm3 Normal PLT 210 LAB L100.2000 6.2-12.0 fl Normal MPV 10.3 LAB L100.2100 47-70 % Normal NEUT% 48.3 LAB L100.2200 19-41 % Normal LY% 36.0 LAB L100.2300 0-10 % High MONO% 11.0 LAB L100.2400 0-5 % Normal EO% 4.2 LAB L100.2500 0-1 % Normal BASO% 0.5 LAB L100.2550 0.0-0.9 % Normal IM GRAN % 0.000 Result Comment: IG% - Immature Granulocytes (promyelocytes, myelocytes and metamyelocytes) > 1% indicates that a LEFT SHIFT is Present. LAB L100.2620 2.0-7.7 X10 3/uL Normal Absolute Neut 3.1 LAB L100.2720 0.83-4.51 X10 3/ul Normal Absolute Lymph 2.30 Performed By: #### L100.0100 #### [facility] [address] [place], [place], [address] VITAMIN D,25 HYDROXY Collected: 08/22/2017 Status: F Source: [place] 3:37 PM [facility] REPOSITORY TYPE CODE TESTS RESULT OUT OF REFERENCE UNITS RANGE LAB L506.1000 29.95-100.01 ng/mL Low Vitamin D 16.2 25-OH Result Comment: Vitamin D 25(OH) Status Range Deficiency <20 ng/mL (50nmol/L) Insuffciency 20 - 30 ng/mL (50 - 75 nmol/L) Sufficiency 30 - 100 ng/mL (75 - 250 nmol/L) Toxicity >100 ng/mL (>250 nmol/L) Performed By: #### L506.1000 #### [facility] [address] [place], [address] COMPREHENSIVE METABOLIC Collected: 08/22/2017 Status: F Source: [place] [facility] 3:37 PM [facility] REPOSITORY TYPE CODE TESTS RESULT OUT OF RANGE REFERENCE UNITS LAB L501.0100 74-106 mg/dL High GLU 149 Result Comment: Fasting Glucose result greater than or equal to 126 mg/dL suggests DIABETES MELLITUS per A.D.A. criteria. Please note revised GLUCOSE reference range effective 2017. LAB L501.1000 7-18 mg/dL Normal BUN 14 LAB L501.1100 0.55-1.02 mg/dL Normal CREAT,SERUM 0.74 Result Comment: The validity of the calculated GFR AND GFRAA in patients over 70 years has not been determined. Clinical correlation is essential. LAB L501.1110 >60 mL/min Normal EST GFR 83 Result Comment: Non- GFR Calc LAB L501.1115 >60 mL/min Normal EST GFR - AA 101 Result Comment: GFR Calc LAB L501.1300 10-20 RATIO Normal BUN/CRE 19.0 LAB L501.1500 6.4-8.2 g/dL T Normal PROT 7.2 LAB L501.1800 3.2-5.0 g/dL Normal ALB 3.5 LAB L501.1950 2.2-4.2 g/dL Normal GLOB 3.7 LAB L501.2000 0.9-2.4 RATIO Normal A/G 0.9 LAB L501.2200 8.5-10.1 mg/dL Low CA 8.3 LAB L501.4100 15-37 U/L Normal AST 29 LAB L501.4305 45-117 U/L Normal ALK P 59 LAB L501.4405 13-56 U/L Normal ALT 28 Result Comment: Please note revised ALT reference range effective 2017. LAB L501.4600 0.20-1.00 mg/dL Normal T BILI 0.20 LAB L501.5300 136-145 mmol/L Normal NA 141 LAB L501.5600 3.5-5.1 mmol/L Normal K 3.6 LAB L501.5900 98-107 mmol/L Normal CL 102 LAB L501.6100 21.0-32.0 mmol/L Normal CO2 30.0 LAB L501.6200 5-15 Normal GAP 9 Performed By: #### L500.4050, L501.9520 #### [facility] [address] [place], [place], [address] THYROID STIM HORMONE Collected: 08/22/2017 Status: F Source: [place] (TSH) 3:37 PM [facility] REPOSITORY TYPE CODE TESTS RESULT OUT OF RANGE REFERENCE UNITS LAB L501.9520 0.358-3.74 uIU/mL Normal TSH 0.96 Performed By: #### L500.4050, L501.9520 #### [facility] [address] [place], [place], [address] HEPATITIS C ANTIBODIES Collected: 08/22/2017 Status: F Source: [place] 3:37 PM [facility] REPOSITORY TYPE CODE TESTS RESULT OUT OF RANGE REFERENCE UNITS LAB L3100.0650 0.0-0.9 s/co ratio Normal HEP C AB <0.1 Result Comment: Negative: < 0.8 Indeterminate: 0.8 - 0.9 Positive: > 0.9 The CDC recommends that a positive HCV antibody result be followed up with a HCV Nucleic Acid Amplification test (472574). Performed at: - [facility] [id number] End Trimmer: Mark Freire PhD, Phone: [phone] Performed By: #### L3100.0625 #### [facility] (refer to report for specific site) refer to report for address and phone number TRANSFER TO [facility] Observed: 07/07/2017 Status: F Source: [place] CARE 4:50 PM [facility] REPOSITORY [facility] Medical Records Department [address] [place] [address] Transfer to [facility] MR#: [id number] Acct: [id number] Name: XANDER RAMIREZ Rep #: [id number] : 1950 66 From: Maryuri Medeiros [employer]annyC PCP: Jose Alfredo LEACH,Patel Garvey Status: DIS IN XANDER RAMIREZ (Patient) (Health Ins. Claim No.) (Day of Discharge to Facility) Certification of patient admission REQUIRED AT TIME OF ADMISSION. I CERTIFY THAT POST-HOSPITAL ECF SERVICES ARE REQUIRED TO BE GIVEN ON AN IN-PATIENT BASIS BECAUSE OF THE ABOVE NAMED PATIENT'S NEED FOR SENIOR CARE CARE ON A CONTINUING BASIS FOR THE CONDITION(S) FOR WHICH HE/SHE WAS RECEIVING IN-PATIENT HOSPITAL SERVICES PRIOR TO HIS/HER TRANSFER TO THE F. 07/07/17 1117 <Electronically signed by Valentín Harry MD> Date: - Diet 07/03/17 15:28 Diet: Cardiac/Low Cholesterol Food consistency:: Regular Liquid Consistency:: Regular/Thin - Routine Orders/Code Status Enema Type: Fleetz Enema Frequency: Daily PRN Suppository Type: Dulcolax 10mg Suppository Frequency: Daily PRN O2 Liters per Minute: 3-4 O2 Frequency: Continuous Keep PO Greater than or Equal to (%): 90 Routine Lab Work: CBC, BMP, - - Weekly Code Status: Full Code - Wound(s) Bilat upper arms Wound Type: Laceration BLE Wound Type: Laceration - Therapies Physical Therapy: Eval and Treat Occupational Therapy: Eval and Treat - Allergies/Procedures Done in Hospital Allergies/Adverse Reactions: Allergies Penicillins Allergy (Verified 07/03/17 12:57) Anaphylaxis codeine Adverse Reaction (Verified 07/03/17 12:57) Nausea Procedures: 2-D Echocardiogram - Type of Care/Length of Stay Estimated LOS: Convalescent Care Less Than 30 days Type of Care Needed: Skilled Rehab Potential: Fair Prognosis: Fair - Additional Orders/Day of Discharge H AND P will serve as current which was dated: 07/03/17 Day of Discharge: 07/07/17 - Dietary and Speech Recommendations Dietitian Recommendations/Changes: Rec continue Cardiac/Low Cholesterol diet. Rec continue Glucerna Shake on medpass routine - Follow Up Care Primary Care Physician: Patel Veliz Chi, MD [Primary Care Provider] - Please follow up with your Primary Care Physician in: 1-2 Weeks Please Follow Up With: Located Within [facility] When: As soon as appointment is available. Please Follow Up With: Susana Oneal NP-C - [facility] When: 1-2 Weeks 07/07/17 1650 <Electronically signed by Maryuri SAUCEDAC> Date Maryuri SAUCEDAC 07/07/17 1117<Electronically signed by Valentín Harry MD> Cosigner Signature: Date Valentín Harry MD CC: Juvenal Gonsalez D.O.; Patel Veliz MD DISCHARGE SUMMARY Observed: 07/07/2017 Status: F Source: [place] 4:33 PM [facility] REPOSITORY [facility] Medical Records Department [address] [place] [address] Discharge Summary 07/07/17906 MR#: [id number] Acct: [id number] Name: XANDER RAMIREZ Rep #: [id number] : 1950 66 From: Maryuri MARTÍNEZ PCP: Jose Alfredo LEACH,Patel Garvey Status: DIS IN Y Location: [facility] [id number] <Maryuri Medeiros - Last Filed: 07/07/17 12:35> Discharge Date and Diagnosis Date of Admission: 07/03/17 Date of Discharge: 07/07/17 - Primary Discharge Diagnosis Active and Suspected Problems Acute on chronic hypoxic respiratory failure secondary to acute COPD exacerbation Hypokalemia-resolved General physical debility with recent fall - Secondary Discharge Diagnosis Chronic Problems Depression (Chronic) Insomnia (Chronic) She takes Temazepam every night for sleep, prescribed by Dr. Veliz Hypertension (Chronic) Physical debility (Chronic) Degenerative disc disease, lumbar (Chronic) Pain, chronic (Chronic) Seizure disorder (Chronic) Restless leg syndrome (Chronic) Obstructive sleep apnea (Chronic) non-compliant with CPAP but has oxygen to wear at night Smokes with greater than 40 pack year history (Chronic) Untreated psychiatric disorder Hospital Course and Treatment Imaging Results: Diagnostic Data Chest X-Ray 07/03/17 12:57 IMPRESSION: Stable chest. Mild bilateral pulmonary interstitial changes. No signs of acute disease Electronically Signed: Rohit Phillips MD, FACR at 13:24 EST , Service support , Chest CTA 07/03/17 14:27 IMPRESSION: 1. Technically limited CTA without evidence for large or central pulmonary embolus. Segmental emboli are not excluded. 2. COPD and pulmonary congestion. 3. Patchy airspace disease, as described. Electronically Signed: Tami Ramirez MD at 17:59 EST , Service support , Brain CT 07/04/17 07:00 IMPRESSION: Normal unenhanced CT scan of the brain. No acute findings in the brain Electronically Signed: Bunny Dawson, at 6:47 EST Tel , Service support , Dr. Gonsalez- Pulmonary Operations: None Procedures: 2-D Echocardiogram Summary of Care Provided: The patient is a 66 year old F admitted 07/03/2017 due to shortness of breath. She has a past medical history of depression, insomnia, hypertension, physical debility, degenerative disc disease of the lumbar spine, chronic pain, seizure disorder, restless leg syndrome, obstructive sleep apnea noncompliant with CPAP, chronic hypoxic respiratory failure requiring 4 L nasal cannula continuously, tobacco dependence, untreated psychiatric disorder. 1. Acute on chronic hypoxic respiratory failure secondary to acute COPD exacerbation-patient improved with IV Solu-Medrol and DuoNeb/albuterol aerosols. She will continue prednisone taper at discharge. She can continue albuterol aerosols and home inhaler regimen at discharge. Patient is on baseline oxygen, 95% on 3 L nasal cannula. Patient wears 3-4 L continuously at home. Echocardiogram showed an estimated ejection fraction of 60%. Pulmonary pressures were unable to be determined. Pulmonary was consulted and patient will need further follow-up at discharge for pulmonary function tests. Sputum culture showed normal respiratory zulma. Respiratory panel negative. No infectious etiology suspected. 2. Obstructive sleep apnea-noncompliant with home CPAP. Encouraged use at discharge. Follow-up with pulmonary. 3. Hypokalemia-resolved with oral replacement. 4. General physical debility-patient states she has had a recent fall at home and difficulty caring for herself. Patient will be discharged to SNF where she will continue PT/OT. 5. Chronic pain/degenerative disc disease of the lumbar spine- continue home regimen. 6. Hypertension-stable, continue current regimen. 7. Nicotine dependence-patient denies recent use although suspect noncompliance. Encouraged continued cessation. 8. Seizure disorder- 9. Untreated psychiatric disorder/depression-patient acted out and became angry during admission. She follows up with counselor at [facility] although she has not followed up in months. Is not currently on medication regimen. Recommend follow-up as soon as possible with a counselor. General: Alert, Oriented x3, Cooperative HEENT: Atraumatic, PERRLA, EOMI, Normocephalic Neck: Supple, No JVD, Negative Carotid Bruits Lungs: Diminished, Wheezes Cardiovascular: Regular rate, No murmurs Abdomen: Bowel Sounds Present, Soft, Non Tender Extremities: No edema, Capillary Refill Less than 3 Seconds Skin: No rashes, No breakdown Musculoskeletal: No Tenderness to Palpation of Joints or Extremities Neurological: Cranial nerves II-XII grossly intact Psych/Mental Status: Agitated, Alert and oriented to time, place, person, mood and affect Patient seen and examined prior to discharge. Physical assessment as noted above. She has a flat affect this morning. She has agreed to discharge to correction facility. Patient is stable for discharge with recommendations as noted above. This patient was seen by MAURICIO Brown under the supervision of Dr. Harry. Home Medications: Medications to take at Discharge Albuterol Aerosols [Ventolin Aerosols] 2.5 mg INHALATION Q4H PRN 05/12/16 Albuterol IH (ProAir) [Proair Hfa] 2 puff INHALATION BID 05/12/16 Alendronate Sodium [Fosamax] 70 mg PO Q7D@0700 05/12/16 Calcium Carbonate/Vitamin D3 [Oyster Shell 500-Vit D3 200 Tb] 1 each PO DAILY 05/12/16 Etodolac 400 mg PO BID 05/12/16 Fluticasone/Salmeterol [Advair 250/50 Mcg Diskus] 2 puff INHALATION BID 05/12/16 Gabapentin [Neurontin] 300 mg PO BIDCM 05/12/16 Phenytoin Na [Dilantin] 100 mg PO 4X/DAY 05/12/16 Pravastatin [Pravachol] 40 mg PO DAILY 05/12/16 Ropinirole HCl [Requip] 2 mg PO DAILY 05/12/16 Tolterodine Tartrate [Detrol LA] 4 mg PO DAILY 05/12/16 Bisacodyl [Dulcolax] 10 mg PO DAILY PRN PRN #0 tablet 06/25/16 Benzonatate [Tessalon Perle] 100 mg PO 4X/DAY PRN PRN #30 cap 06/24/17 Temazepam [Restoril] 30 mg PO QHS 06/24/17 Famotidine [Pepcid] 20 mg PO BID 07/03/17 Mirtazapine [Remeron] 15 mg PO QHS 07/03/17 Latanoprost 0.005% [Xalatan Opthalmic] 1 drop EACH EYE QHS 07/04/17 Methadone HCl 10 mg PO 4X/DAY 7 Days #28 tab 07/07/17 Phenobarbital 30 mg PO BID 7 Days #14 tab 07/07/17 Prednisone 40 mg PO DAILY 5 Days tablet 07/07/17 Following Prescrptions Were Given to Patient: Prednisone 40 mg PO DAILY 5 Days tablet Phenobarbital 30 mg PO BID 7 Days #14 tab Methadone HCl 10 mg PO 4X/DAY 7 Days #28 tab Primary Care Physician: Patel Veliz Chi, MD [Primary Care Provider] - Please follow up with your Primary Care Physician in: 1-2 Weeks Please Follow Up With: Located Within [facility] When: As soon as appointment is available. Please Follow Up With: Susana Oneal NP-C - Pulmonary Medicine [facility] When: 1-2 Weeks Disposition: [facility] facility Minutes spent on discharge:: 35 Patient Condition:: Stable Meaningful Use Info Meaningful Use Diagnoses (Choose all that apply): None applicable <Valentín Harry - Last Filed: 07/07/17 16:33> Discharge Date and Diagnosis - Secondary Discharge Diagnosis Chronic Problems Depression (Chronic) Insomnia (Chronic) She takes Temazepam every night for sleep, prescribed by Dr. Veliz Hypertension (Chronic) Physical debility (Chronic) Degenerative disc disease, lumbar (Chronic) Pain, chronic (Chronic) Seizure disorder (Chronic) Restless leg syndrome (Chronic) Obstructive sleep apnea (Chronic) non-compliant with CPAP but has oxygen to wear at night Smokes with greater than 40 pack year history (Chronic) Hospital Course and Treatment Summary of Care Provided: This patient was seen in conjunction with WOODEN FRAME BUILDERMaryuri. I have independently interviewed and examined the patient and reviewed pertinent history, examination findings, laboratory and plan of management. I have reviewed the note and agree with the documented findings with the few additional points. In brief, patient is admitted for acute on chronic hypoxic respiratory failure secondary to acute COPD exacerbation-patient improved with IV Solu-Medrol and DuoNeb/albuterol aerosols. Patient is being discharged to SNF. Discharge meds reconciliation done. Discharge follow-up instructions given. Patient is to follow-up with lace weaver. I have discussed my assessment with Maryuri CROSS and orders have been reviewed. [] Code Visit Inpatient E AND M: [id number] Disch Hosp 07/07/17 1235 <Electronically signed by Maryuri Medeiros WOODEN FRAME BUILDER-C> Date Maryuri Medeiros WOODEN FRAME BUILDER-C 07/07/17 1633<Electronically signed by Valentín Harry MD> Cosigner Signature (if applicable): Date Valentín Harry MD CC: WOODEN FRAME BUILDER-Felipe Medeiros; Valentín Harry MD; Patel Veliz MD Signed BEDSIDE GLUCOSE Collected: 07/07/2017 Status: F Source: [place] 11:52 AM [facility] REPOSITORY TYPE CODE TESTS RESULT OUT OF REFERENCE UNITS RANGE LAB L501.080 70-110 mg/dL High BEDSIDE GLU 161 Result Comment: MANAGEMENT OF PATIENT CARE PER NURSING PROTOCOL Performed By: #### L501.080 #### [facility] Point of Care [address] [place] [address] BEDSIDE GLUCOSE Collected: 07/07/2017 Status: F Source: [place] 6:45 AM [facility] REPOSITORY TYPE CODE TESTS RESULT OUT OF REFERENCE UNITS RANGE LAB L501.080 70-110 mg/dL High BEDSIDE GLU 128 Result Comment: MANAGEMENT OF PATIENT CARE PER NURSING PROTOCOL Performed By: #### L501.080 #### [facility] Point of Care [address] [place] [address] BEDSIDE GLUCOSE Collected: 07/06/2017 Status: F Source: [place] 10:22 PM [facility] REPOSITORY TYPE CODE TESTS RESULT OUT OF REFERENCE UNITS RANGE LAB L501.080 70-110 mg/dL High BEDSIDE GLU 163 Result Comment: MANAGEMENT OF PATIENT CARE PER NURSING PROTOCOL Performed By: #### L501.080 #### [facility] Point of Care [address] [place] [address] BEDSIDE GLUCOSE Collected: 07/06/2017 Status: F Source: [place] 5:39 PM [facility] REPOSITORY TYPE CODE TESTS RESULT OUT OF REFERENCE UNITS RANGE LAB L501.080 70-110 mg/dL High BEDSIDE GLU 155 Result Comment: MANAGEMENT OF PATIENT CARE PER NURSING PROTOCOL Performed By: #### L501.080 #### [facility] Point of Care [address] [place] [address] BEDSIDE GLUCOSE Collected: 07/06/2017 Status: F Source: [place] 12:01 PM [facility] REPOSITORY TYPE CODE TESTS RESULT OUT OF REFERENCE UNITS RANGE LAB L501.080 70-110 mg/dL High BEDSIDE GLU 179 Result Comment: MANAGEMENT OF PATIENT CARE PER NURSING PROTOCOL Performed By: #### L501.080 #### [facility] Point of Care [address] [place] [address] BEDSIDE GLUCOSE Collected: 07/06/2017 Status: F Source: [place] 6:32 AM [facility] REPOSITORY TYPE CODE TESTS RESULT OUT OF REFERENCE UNITS RANGE LAB L501.080 70-110 mg/dL High BEDSIDE GLU 153 Result Comment: MANAGEMENT OF PATIENT CARE PER NURSING PROTOCOL Performed By: #### L501.080 #### [facility] Point of Care [address] [place], [place] [address] BASIC METABOLIC Collected: 07/06/2017 Status: F Source: [place] PROFILE (BMP) 5:15 AM [facility] REPOSITORY TYPE CODE TESTS RESULT OUT OF RANGE REFERENCE UNITS LAB L501.0100 70-110 mg/dL High GLU 172 Result Comment: Fasting Glucose result greater than or equal to 126 mg/dL suggests DIABETES MELLITUS per A.D.A. criteria. LAB L501.1000 7-18 mg/dL Normal BUN 18 LAB L501.1100 0.55-1.02 mg/dL Normal CREAT,SERUM 0.59 Result Comment: The validity of the calculated GFR AND GFRAA in patients over 70 years has not been determined. Clinical correlation is essential. LAB L501.1110 >60 mL/min Normal EST GFR 107 Result Comment: Non- GFR Calc LAB L501.1115 >60 mL/min Normal EST GFR - AA 130 Result Comment: GFR Calc LAB L501.1255 ml/min Normal Estimated CRCL 45.16 LAB L501.1300 10-20 RATIO High BUN/CRE 30.4 LAB L501.2200 8.5-10 mg/dL Normal .1 CA 8.6 LAB L501.5300 136-14 mmol/L Normal 5 NA 140 LAB L501.5600 3.5-5. mmol/L Normal 1 K 4.2 LAB L501.5900 98-107 mmol/L Normal CL 102 LAB L501.6100 21.0-3 mmol/L Normal 2.0 CO2 31.0 LAB L501.6200 5-15 Normal GAP 7 Performed By: #### L500.2500 #### [facility] [address] [place], [address] CBC W/DIFF, AUTOMATED Collected: 07/06/2017 Status: F Source: [place] 5:15 AM [facility] REPOSITORY TYPE CODE TESTS RESULT OUT OF RANGE REFERENCE UNITS LAB L100.1000 4.4-11.0 K/mm3 Normal WBC 9.0 LAB L100.1200 4.2-5.4 M/mm3 Low RBC 3.71 LAB L100.1300 12.0-15.0 g/dl Low HGB 11.6 LAB L100.1400 37-47 % Low HCT 36.2 LAB L100.1500 81-99 fL Normal MCV 97.6 LAB L100.1600 27.0-32.0 pg Normal MCH 31.3 LAB L100.1700 32-36 g/gl Normal MCHC 32.0 LAB L100.1810 11.6-14.6 % Normal RDW CV 13.7 LAB L100.1820 35.1-43.9 fl High RDW SD 46.4 LAB L100.1900 150-450 K/mm3 Normal PLT 249 LAB L100.2000 6.2-12.0 fl Normal MPV 9.5 LAB L100.2100 47-70 % Normal NEUT% 64.4 LAB L100.2200 19-41 % Normal LY% 23.7 LAB L100.2300 0-10 % Normal MONO% 8.8 LAB L100.2400 0-5 % Normal EO% 0.9 LAB L100.2500 0-1 % Normal BASO% 0.3 LAB L100.2550 0.0-0.9 % High IM GRAN % 1.900 Result Comment: IG% - Immature Granulocytes (promyelocytes, myelocytes and metamyelocytes) > 1% indicates that a LEFT SHIFT is Present. LAB L100.2620 2.0-7.7 X10 3/uL Normal Absolute Neut 5.8 LAB L100.2720 0.83-4.51 X10 3/ul Normal Absolute Lymph 2.13 Performed By: #### L100.0100 #### [facility] [address] [place], [address] BEDSIDE GLUCOSE Collected: 07/05/2017 Status: F Source: [place] 9:11 PM [facility] REPOSITORY TYPE CODE TESTS RESULT OUT OF REFERENCE UNITS RANGE LAB L501.080 70-110 mg/dL High BEDSIDE GLU 226 Result Comment: MANAGEMENT OF PATIENT CARE PER NURSING PROTOCOL Performed By: #### L501.080 #### [facility] Point of Care [address] [place] [address] BEDSIDE GLUCOSE Collected: 07/05/2017 Status: F Source: [place] 4:47 PM [facility] REPOSITORY TYPE CODE TESTS RESULT OUT OF REFERENCE UNITS RANGE LAB L501.080 70-110 mg/dL High BEDSIDE GLU 191 Result Comment: MANAGEMENT OF PATIENT CARE PER NURSING PROTOCOL Performed By: #### L501.080 #### [facility] Point of Care [address] [place] [address] BEDSIDE GLUCOSE Collected: 07/05/2017 Status: F Source: [place] 11:09 AM [facility] REPOSITORY TYPE CODE TESTS RESULT OUT OF REFERENCE UNITS RANGE LAB L501.080 70-110 mg/dL High BEDSIDE GLU 191 Result Comment: MANAGEMENT OF PATIENT CARE PER NURSING PROTOCOL Performed By: #### L501.080 #### [facility] Point of Care [address] [place] [address] BEDSIDE GLUCOSE Collected: 07/05/2017 Status: F Source: [place] 7:39 AM [facility] REPOSITORY TYPE CODE TESTS RESULT OUT OF REFERENCE UNITS RANGE LAB L501.080 70-110 mg/dL High BEDSIDE GLU 149 Result Comment: MANAGEMENT OF PATIENT CARE PER NURSING PROTOCOL Performed By: #### L501.080 #### [facility] Point of Care [address] [place], [place] [address] Observed: 07/05/2017 Status: F Source: [place] LEGIONELLA ANTIGEN 1:40 AM [facility] URINE REPOSITORY Specimen Source: URINE, CLEAN CATCH Legionella, UR Legionella Antigen result interpretation: Negative Presumptive negative for Legionella pneumophila serogroup 1 antigen in urine, suggesting no recent or current infection. Legionella Ag, Urine Negative (See interpretation below) Performed By: #### M300.4500 #### [facility] [address] [place] [address]. [place], [place], [address] STREP Observed: 07/05/2017 Status: F Source: [place] PNEUMONIAE ANTIG(UR,CSF) 1:40 AM [facility] REPOSITORY S pneumo Ag URINE INTERPRETATION Negative Urine Presumptive negative for pneumococcal pneumonia, suggesting no current or recent pneumococcal infection. Infection due to S pneumoniae cannot be ruled out since the antigen present in the sample may be below the detection limit of the test. Strep pneumo Test Negative URINE (See interpretation below) Performed By: #### M300.4600 #### [facility] [address] [place], [address] BEDSIDE GLUCOSE Collected: 07/04/2017 Status: F Source: [place] 11:06 PM [facility] REPOSITORY TYPE CODE TESTS RESULT OUT OF REFERENCE UNITS RANGE LAB L501.080 70-110 mg/dL High BEDSIDE GLU 181 Result Comment: MANAGEMENT OF PATIENT CARE PER NURSING PROTOCOL Performed By: #### L501.080 #### [facility] Point of Care [address] [facility] [place] [address] BEDSIDE GLUCOSE Collected: 07/04/2017 Status: F Source: [place] 4:56 PM [facility] REPOSITORY TYPE CODE TESTS RESULT OUT OF REFERENCE UNITS RANGE LAB L501.080 70-110 mg/dL High BEDSIDE GLU 182 Result Comment: MANAGEMENT OF PATIENT CARE PER NURSING PROTOCOL Performed By: #### L501.080 #### [facility] Point of Care [address] [facility] [place] [address] EMERGENCY DEPARTMENT Observed: 07/04/2017 Status: F Source: [place] SUMMARY 3:41 PM [facility] REPOSITORY [facility] Medical Records Department [address] [place], [place] [address] [address] Emergency Department Summary 07/03/17 1259 MR#: [id number] Acct: [id number] Name: XANDER RAMIREZ Rep #: [id number] : 1950 66 From: Roopa Vicotr MD PCP: Jose Alfredo LEACH,Patel Garvey Status: ADM IN - ER Visit Summary Date of Service: 07/03/17 Chief Complaint: Shortness of breath History of Present Illness: The patient is a 66 F with history of COPD just discharged from the hospital yesterday who presents with severe shortness of breath. Patient states that she feels right now with the way she felt when she was discharged. She has shortness of breath and persistent cough. She is on home oxygen and states she did get her oxygen tanks for home use. Remainder of history difficult to obtain secondary to patient's shortness of breath and refusal to answer questions due to dyspnea. Physical Examination: Vital signs: afebrile, hemodynamically stable, hypoxia General: well nourished, well developed, in moderate distress, frequent coughs Skin: warm, dry, no rash, pallor HEENT: normocephalic and atraumatic; PERRL, EOMI, dry mucous membranes Cardiovascular: Tachycardic rate and regular rhythm without murmurs, trace symmetric peripheral edema, 2+ pulses all distal extremities Respiratory: Tachypnea, increased work of breathing, lungs show diffuse wheezing all tomlinson Abdominal: Abdomen is soft, nontender with normoactive bowel sounds, no guarding or rebound, no masses MSK: Moves all extremities, no deformities, normal strength Neuro: Awake and alert, oriented 4. No facial droop, sensation and motor function intact and symmetric Test Results: Abnormal Lab Results WBC 9.6 RBC 4.69 WBC RBC Hgb Hct Emergency Department Course and Treatment: Patient was given breathing treatments for her wheezing and apparent COPD exacerbation. She was also given Solu-Medrol. Because of her respiratory effort and beginning to fatigue, she was placed on noninvasive and had great improvement in her respiratory effort. O2 sat up to 99% on the noninvasive. Labs were remarkable for mild hypokalemia. No leukocytosis. Troponin negative. EKG showed a sinus tachycardia without ischemia or ectopy. Chest x-ray showed no pneumonia or pneumothorax. ABG showed respiratory acidosis with likely compensatory metabolic alkalosis. Given patient's multiple recent hospitalizations, her hypoxia on her normal oxygen, and her severe dyspnea, a CTA of the chest was performed to evaluate for possible pulmonary embolism. None was noted. Patient was treated as a COPD exacerbation and was placed on Levaquin for coverage. She was discussed with Dr. Gilmore admitted for further management. Critical care time of 35 minutes, including initial evaluation and emergent respiratory interventions, frequent re-evaluations, interpretation of chest x-rays, CTA chest, ABGs and lab work, coordination of care with hospitalist and treatment team. Disposition: Admit To ICU Impression: COPD exacerbation, acute respiratory failure This note was generated with [employer] dictation software. It may contain incorrect words, spelling, and punctuation that were not noted in review of the chart prior to signing ED Disposition - Plan for ED Patient: Chief Complaint: Shortness of Breath What to do if you have Problems For any increased pain, shortness of breath, bleeding, nausea or vomiting, chest pain, or any unexpected problems, contact your Primary Care Provider. Call [facility] ([phone]) or report to the closest Emergency Room. Call 911 if necessary. 07/04/17 1541 <Electronically signed by Roopa Victor MD> Date Roopa Victor MD Cosigner Signature (If Indicated): Date CC: Patel Veliz MD Observed: 07/04/2017 Status: F Source: [place] CULTURE, SPUTUM 2:30 PM [facility] REPOSITORY Order Date: 07/04/17 Has pt arrived? Y Gram Stain Acceptable Specimen? Yes (<25 Epithelial cells per/lpf) Gram Stain 2+ White Blood Cells 1+ Epithelial cells 2+ Gram positive cocci 2+ Gram negative rods 2+ Gram positive rods Resp. Culture Mixed normal respiratory zulma. No Haemophilus, Streptococcus pneumoniae, beta-hemolytic Streptococcus or Staphylococcus aureus isolated. Performed By: #### M100.0800 #### [facility] [address] [facility] [place], [address] 12 LEAD ELECTROCARDIOGRAM Observed: 07/04/2017 Status: F Source: [place] 1:00 PM [facility] REPOSITORY [facility] Cardiovascular Services [address] [place] [address] 12 Lead EKG 07/03/17 1315 MR#: [id number] Acct: [id number] Name: XANDER RAMIREZ Rep #: [id number] : 1950 66 From: Tank Hernandez MD Attending Dr: Dariusz Gilmore DO Status: ADM IN Ordering Dr: Roopa Victor MD Date: 07/03/17 Location: [facility] Sex: F C Admitted: 07/03/17 Test Reason : SOB Blood Pressure : / mmHG Vent. Rate : 123 BPM Atrial Rate : 123 BPM P-R Int : 136 ms QRS Dur : 082 ms QT Int : 324 ms P-R-T Axes : 079 035 050 degrees QTc Int : 463 ms Sinus tachycardia Low voltage QRS Borderline ECG Confirmed by TANK HERNANDEZ MD ([id number]), web content editor GOPI RAMIREZ ([id number]) on 07/04/2017 12:59:50 PM Referred By: CAMI Confirmed By:TANK HERNANDEZ MD 07/04/17 1259 Date Tank Hernandez MD CC: Patel Veliz MD Signed Observed: 07/04/2017 Status: F Source: [place] RESPIRATORY PANEL 12:25 PM [facility] MOLECULAR REPOSITORY RP PANEL ADENOVIRUS Not Detected HUMAN METAPHNEUMO Not Detected INFLUENZA A Not Detected INFLUENZA A (SUBTYPE H1) Not Detected INFLUENZA A (SUBTYPE H3) Not Detected INFLUENZA B Not Detected PARAINFLUENZA 1 Not Detected PARAINFLUENZA 2 Not Detected PARAINFLUENZA 3 Not Detected PARAINFLUENZA 4 Not Detected RHINOVIRUS Not Detected RSV A Not Detected RSV B Not Detected NAAT METHOD Testing was performed using nucleic acid amplification Performed By: #### M100.638 #### [facility] [address] [place] [address], [id number] BEDSIDE GLUCOSE Collected: 07/04/2017 Status: F Source: [place] 11:52 AM [facility] REPOSITORY TYPE CODE TESTS RESULT OUT OF REFERENCE UNITS RANGE LAB L501.080 70-110 mg/dL High BEDSIDE GLU 187 Result Comment: MANAGEMENT OF PATIENT CARE PER NURSING PROTOCOL Performed By: #### L501.080 #### [facility] Point of Care [address] [place], [place] [address] CONSULTATION Observed: 07/04/2017 Status: F Source: [place] 11:48 AM [facility] REPOSITORY [facility] Medical Records Department [address] [place] [address] Consultation 07/04/17 [facility] MR#: [id number] Acct: [id number] Name: XANDER RAMIREZ #: [id number] : 1950 66 From: Juvenal Gonsalez DO PCP: Jose Alfredo LEACH,Patel Garvey Status: ADM IN Y Location: [place] [address]-1 Reason for Consult Date of Consultation: 07/04/17 Reason for Consultation: COPD exacerbation History of Present Illness: The patient is a 66-year-old female, with a history as outlined below, who presented to the emergency department on July 03, having just been discharged from the hospital the day prior, with severe shortness of breath. The patient has a self-reported history of COPD of unknown severity, chronic hypoxic respiratory failure with a baseline 4 L/min oxygen requirement and obstructive sleep apnea for which she is noncompliant with nocturnal PAP therapy. The patient has an extensive smoking history and continues to smoke daily. She is currently prescribed Advair and as needed albuterol as an outpatient. She has never been evaluated by a lace weaver previously, nor has she undergone pulmonary function testing. The patient's recent hospital admission included the dates of June 28-. The patient was treated for respiratory failure secondary to a presumed COPD exacerbation. Infectious workup was negative and the patient was without radiographic evidence of an acute infiltrative process. She was treated with steroids and aerosols. On presentation to the emergency department, the patient was noted to be afebrile, tachycardic and tachypneic. She was initially maintaining appropriate oxygen saturations on 4 L/min via nasal cannula. However, because of her increased work of breathing, a BiPAP was applied. Initial laboratory evaluation revealed no evidence of a leukocytosis. Chemistry profile was notable for a potassium of 3.1. Serum lactate was negative. Troponin was negative. CTA chest was obtained. The study itself was suboptimal, but did not demonstrate a large central PE. There was a mild degree of pulmonary congestion along with questionable bibasilar airspace consolidation. The patient was started on antibiotics, steroids and aerosols. She was subsequently admitted to the progressive care unit for ongoing management. Past Medical History Past Medical History (Chronic Problems): Chronic Problems Depression (Chronic) Insomnia (Chronic) She takes Temazepam every night for sleep, prescribed by Dr. Veliz Hypertension (Chronic) Physical debility (Chronic) Degenerative disc disease, lumbar (Chronic) Pain, chronic (Chronic) Seizure disorder (Chronic) Restless leg syndrome (Chronic) Obstructive sleep apnea (Chronic) non-compliant with CPAP but has oxygen to wear at night Smokes with greater than 40 pack year history (Chronic) Allergies Penicillins Allergy (Verified 07/03/17 12:57) Anaphylaxis codeine Adverse Reaction (Verified 07/03/17 12:57) Nausea Home Medications: Ambulatory Orders Medication Instructions Recorded Surgical History: appendectomy, cholecystectomy, - - Fractured right ankle, carpal tunnel surgery, removal of teeth, right ovariectomy and fallopian tube removal. Psychiatric History: Depression - untreated BACK SIZER History: No pertinent BACK SIZER history Lives: Alone Smoking Status: Former smoker Tobacco Use: Cigarettes Alcohol: None Drugs: None - *Family History Maternal History Items: Diabetes Paternal History Items: No pertinent history Sibling History Items: No pertinent history Review of Systems Constitutional: Denies: Chills, Fever, Weight Change HEENT: Denies: Head Aches, Sinus Congestion, Sinus Drainage Cardiovascular: Denies: Chest Pain, Palpitations Respiratory: Reports: Cough, Shortness of Breath, Wheezing Gastrointestinal: Denies: Abdominal Pain, Nausea, Vomiting Genitourinary: Denies: Dysuria Musculoskeletal: Reports: Back Pain. Denies: Joint Pain, Joint Tenderness Skin: Denies: Rash, Wounds Neurological: Denies: Numbness, Tingling, Focal weakness Psychiatric: Denies: Anxiety, Depression, Homicidal Ideations, Suicidal Ideations Hematologic/ Lymphatic: Denies: Easy Bruising, Easy Bleeding Patient Problems: Active and Suspected Problems Acute and chronic respiratory failure with hypoxia (Acute) Nicotine abuse (Acute) Objective: The patient's most recent lab work, culture data and imaging studies have all been personally reviewed. - Physical Exam General: Alert, Cooperative, No apparent distress HEENT: Atraumatic, PERRLA, Normocephalic Oral: Moist Mucosa, No Gingival or Mucosal Lesions/ Ulcerations Neck: Supple, No Nodes, Trachea Midline Lungs: No rhonchi, No rales, Diminished, Wheezes Cardiovascular: Regular rate, Regular Rhythm, Normal S1, Normal S2, No murmurs Abdomen: Bowel Sounds Present, Soft, Non Tender, Non-Distended Extremities: No clubbing, No cyanosis, No edema Skin: No rashes, No breakdown Musculoskeletal: No Tenderness to Palpation of Joints or Extremities Lymphatic: No Cervical, Supraclavicular, or Inguinal Adenopathy Neurological: Neuro grossly intact Psych/Mental Status: Normal Affect, Appropriate Vital Signs Temp Pulse Resp BP Pulse Ox 98.3 F 88 16 106/75 97 07/04/17 07:00 07/04/17 07:29 07/04/17 07:05 07/04/17 07:00 07/04/17 07:05 Oxygen Flow Rate 3 Oxygen Delivery Method Venturi Mask Weight: 180 lb 15.992 oz Body Mass Index (BMI) 32.1 Intake and Output for Last 24 Hours Intake Total 480 / 480 480 / 480 Balance 480 / 480 480 / 480 Laboratory Tests Past 24 Hrs Sodium 141 Potassium 3.9 Chloride 105 Carbon Dioxide 28.0 Anion Gap 8 POC Glucose POC Glucose 105 117 H 177 H Clinical Impression(s) from Imaging Studies Chest X-Ray 07/03/17 12:57 IMPRESSION: Stable chest. Mild bilateral pulmonary interstitial changes. No signs of acute disease Electronically Signed: Rohit Phillips MD, FACR at 13:24 EST , Service support , Chest CTA 07/03/17 14:27 IMPRESSION: 1. Technically limited CTA without evidence for large or central pulmonary embolus. Segmental emboli are not excluded. 2. COPD and pulmonary congestion. 3. Patchy airspace disease, as described. Electronically Signed: Tami Ramirez MD at 17:59 EST , Service support , Brain CT 07/04/17 07:00 IMPRESSION: Normal unenhanced CT scan of the brain. No acute findings in the brain Electronically Signed: Bunny Dawson, at 6:47 EST Tel , Service support , Assessment/Plan Active and Suspected Problems Acute and chronic respiratory failure with hypoxia (Acute) Nicotine abuse (Acute) RECOMMENDATIONS: 1. Continue scheduled aerosol regimen 2. Wean supplemental oxygen to maintain saturations at or above 88% 3. Continue steroids 4. Obtain sputum and sent for culture. Check strep and urine Legionella antigens, along with a full respiratory viral panel. 5. Encourage incentive spirometer use while in bed 6. Smoking cessation is advisable. Nicotine replacement therapy can be utilized while inpatient 7. Perform walking oximetry study prior to consideration for discharge from the hospital. 8. Consideration for correction placement at the time of discharge. 9. Patient may follow-up in the pulmonary clinic in 2 weeks with [employer] if she so desires. She should have baseline pulmonary function tests and a possible repeat PSG as outpatient. IMPRESSIONS: 1. Acute exacerbation of COPD, presumed Continue scheduled aerosol regimen, along with steroids. The patient has previously completed an antibiotic treatment course. No current indication for the use of antibiotics. If the patient does produce sputum, please send for culture. We will also plan to check full respiratory viral panel. Wean supplemental oxygen to maintain saturations at or above 88%. Would recommend consideration for correction placement following discharge. The patient undoubtedly needs to follow-up closely in the pulmonary medicine clinic. Repeat echocardiogram is pending. 2. Acute on chronic respiratory failure with hypoxia and hypercapnia Again, patient is on baseline 4 L of oxygen,and has been for over 10 years per her report. There is no pulmonary function tests to review or walking oximetry. Her last CT of the chest in 2012 reported hyperinflation of the lungs consistent with COPD, no pleural abnormality. As above, wean supplemental oxygen to maintain saturations at or above 88%. 3. Obstructive sleep apnea Noncompliant with CPAP at home. Patient is on several sedating medications at home which could complicate her CHUY and cause more hypoxia. She reports she wears 4 L when sleeping. Patient is not open to reinitiation of CPAP therapy and has refused BiPAP therapy since admission, so pursuit of a PSG as an outpatient is likely not worthwhile. 4. Tobacco abuse/depression/insomnia/hypertension/lumbar disc disease/seizure disorder/chronic pain/RLS/psychiatric disorder Complicates care, management, recovery, and prognosis. Smoking cessation is advisable. Continue home medications as indicated. Nicotine replacement therapy can be initiated while inpatient. This note was generated with [employer] dictation software. It may contain incorrect words, spelling, and punctuation that were not noted in checking the note before signing. Code Visit Inpatient E AND M: 84068 Init Hosp L2 07/04/17 1148 <Electronically signed by Juvenal Gonsalez DO> Date Juvenal Gonsalez DO Cosigner Signature (if applicable): Date CC: Juvenal Gonsalez D.O.; Patel Veliz MD Signed ECHOCARDIOGRAM COMPLETE Observed: 07/04/2017 Status: F Source: [place] 11:21 AM [facility] REPOSITORY [facility] Cardiovascular Services [address] [place] [address] Echo Complete 07/04/17 0908 MR#: [id number] Acct: [id number] Name: XANDER RAMIREZ Rep #: [id number] : 1950 66 From: Tank Hernandez MD Attending Dr: Dariusz Gilmore DO Status: ADM IN Ordering Dr: Dariusz Gilmore DO Date: 07/04/17 Location: [facility] Sex: F C Admitted: 07/03/17 Reason For Study: DYSPNEA Procedure This was a 2D Doppler, Color Flow transthoracic echocardiogram. Technically difficult. Pt restless due to back pain and SOB due to COPD exacerbation. Exam performed portable in patient room. Left Ventricle Normal LV size. Left ventricular systolic function is normal. The estimated ejection fraction is 60 %. No regional wall motion abnormalities noted. Right Ventricle Normal RV size. Normal systolic function. Atria Normal left atrium. Normal right atrium. Mitral Valve Normal mitral valve. Tricuspid Valve Normal tricuspid valve. Aortic Valve Normal aortic valve. Pulmonic Valve The pulmonic valve is not well visualized. Great Vessels Normal aortic root. The pulmonary artery is normal size. Normal inferior vena cava. Pericardium/Pleural No pericardial effusion. MMode/2D Measurements AND Calculations LVIDd: 4.2 cm IVSd: 0.76 cm EDV(MOD-sp4): 54.1 ml LVIDs: 3.0 cm LVPWd: 0.85 cm ESV(MOD-sp4): 24.4 ml RVDd: 2.7 cm FS: 28.9 % EF(MOD-sp4): 55.0 % EDV(MOD-sp2): 62.7 ml SV(MOD-sp4): 29.8 ml SV(MOD-sp2): 38.9 ml EF(MOD-sp2): 62.1 % Doppler Measurements AND Calculations MV E max alon: 71.8 cm/sec Ao V2 max: 134.5 cm/sec LV V1 max: 114.4 cm/sec MV A max alon: 50.2 cm/sec Ao max P.2 mmHg LV V1 max P.2 mmHg MV E/A: 1.4 Interpretation Summary Normal LV size. Left ventricular systolic function is normal. The estimated ejection fraction is 60 %. The study was technically limited. The study was technically difficult. Structurally normal valves. Ordering Physician: Dariusz Gilmore Referring Physician: PATEL VELIZ CHI Performed By: Meenakshi Serra, GREGORIO, RVT 07/04/171120 Date Tank Hernandez MD CC: Dariusz Gilmore DO; Patel Veliz MD Date Dictated: 07/04/17907 Date Transcribed: 07/04/171120 Extraction Operator: Signed BEDSIDE GLUCOSE Collected: 07/04/2017 Status: F Source: [place] 6:46 AM [facility] REPOSITORY TYPE CODE TESTS RESULT OUT OF RANGE REFERENCE UNITS LAB L501.080 70-110 mg/dL Normal BEDSIDE GLU 105 Result Comment: MANAGEMENT OF PATIENT CARE PER NURSING PROTOCOL Performed By: #### L501.080 #### [facility] Point of Care [address] [place], [place] [address] BASIC METABOLIC Collected: 07/04/2017 Status: F Source: [place] PROFILE (BMP) 5:45 AM [facility] REPOSITORY TYPE CODE TESTS RESULT OUT OF RANGE REFERENCE UNITS LAB L501.0100 70-110 mg/dL High GLU 111 Result Comment: Fasting Glucose result from 110 to <126 mg/dL suggests IMPAIRED HOMEOSTASIS per A.D.A. criteria. LAB L501.1000 7-18 mg/dL Normal BUN 18 LAB L501.1100 0.55-1.02 mg/dL Low CREAT,SERUM 0.43 Result Comment: The validity of the calculated GFR AND GFRAA in patients over 70 years has not been determined. Clinical correlation is essential. LAB L501.1110 >60 mL/min Normal EST GFR 156 Result Comment: Non- GFR Calc LAB L501.1115 >60 mL/min Normal EST GFR - AA 189 Result Comment: GFR Calc LAB L501.1255 ml/min Normal Estimated CRCL 45.16 LAB L501.1300 10-20 RATIO High BUN/CRE 42.1 LAB L501.2200 8.5-10 mg/dL Low .1 CA 8.0 LAB L501.5300 136-14 mmol/L Normal 5 NA 141 LAB L501.5600 3.5-5. mmol/L Normal 1 K 3.9 LAB L501.5900 98-107 mmol/L Normal CL 105 LAB L501.6100 21.0-3 mmol/L Normal 2.0 CO2 28.0 LAB L501.6200 5-15 Normal GAP 8 Performed By: #### L500.2500 #### [facility] [address] [place], [address] BRAIN/HEAD WITHOUT Observed: 07/04/2017 Status: F Source: [place] CONTRAST 3:48 AM [facility] REPOSITORY [facility] Imaging Services [address] [place] [address] Brain/Head without Contrast MR#: [id number] Acct: [id number] Name: XANDER RAMIREZ Rep #: [id number] : 1950 F 66 From: Bunny Dawson MD PCP: Patel Veliz MD, Chi Status: ADM IN Study: Brain/Head without Contrast Date of Exam: 07/04/17 Exam# [id number] Ordering Dr: Williams Palmer MD STUDY: CT BRAIN WITHOUT CONTRAST REASON FOR EXAM: Female, 66 years old. Patient fell RADIATION DOSAGE (If Supplied By Facility): CTDIvol = ( 44.99 ) mGy, DLP = ( 762.36 ) mGycm TECHNIQUE: Transaxial CT imaging of the brain was performed without administration of intravenous contrast material. Individualized dose optimization techniques were used for this CT. COMPARISON: None. FINDINGS: Normal soft tissue structures. Normal calvarium. Normal size ventricles and extra-axial spaces for the patient's age. Normal white matter tracts of the cerebral hemispheres. Normal basal ganglia and thalami. Normal brainstem. Normal cerebellum. There is no intracranial hemorrhage. There are no findings of an acute ischemic infarction. Normal visualized paranasal sinuses. CT/Brain/Head without Contrast IMPRESSION: Normal unenhanced CT scan of the brain. No acute findings in the brain Electronically Signed: Bunny Dawson, at 6:47 EST Tel , Service support , CC: Williams Palmer MD; Patel Veliz MD Extraction Operator: Signed BEDSIDE GLUCOSE Collected: 07/03/2017 Status: F Source: [place] 9:34 PM [facility] REPOSITORY TYPE CODE TESTS RESULT OUT OF REFERENCE UNITS RANGE LAB L501.080 70-110 mg/dL High BEDSIDE GLU 117 Result Comment: MANAGEMENT OF PATIENT CARE PER NURSING PROTOCOL Performed By: #### L501.080 #### [facility] Point of Care [address] [place] [address] BEDSIDE GLUCOSE Collected: 07/03/2017 Status: F Source: [place] 5:36 PM [facility] REPOSITORY TYPE CODE TESTS RESULT OUT OF REFERENCE UNITS RANGE LAB L501.080 70-110 mg/dL High BEDSIDE GLU 177 Result Comment: MANAGEMENT OF PATIENT CARE PER NURSING PROTOCOL Performed By: #### L501.080 #### [facility] Point of Care [address] [place] [address] HISTORY AND PHYSICAL Observed: 07/03/2017 Status: F Source: [place] EXAM 5:31 PM [facility] REPOSITORY [facility] Medical Records Department [address] [place] [address] History and Physical 07/03/17 1531 MR#: [id number] Acct: [id number] Name: XANDER RAMIREZ Rep #: [id number] : 1950 66 From: Tavo MARTINEZ PCP: Jose Alfredo LEACH,Patel Garvey Status: ADM IN Y Location: [place] [address] ADDENDUM by Dariusz Gilmore DO on 07/03/17 at 1731 Code Visit Patient was seen and examined in the emergency room at [facility] independently Tavo Patino. She had a chief complaint of increasing shortness of breath, she had been released from the hospital here yesterday after hospitalization for exacerbation of COPD. Patient states that she did not feel she was improved and she came back today for evaluation due to shortness of breath. Patient denied any fevers or chills. Evaluation by the emergency room physician included labs which showed a slightly low potassium, normal white blood cell count,and glucose was slightly elevated. Chest x-ray was performed, no active infiltrates are noted to be present. Patient required BiPAP to stabilize her pulse ox above 90%. Patient was given IV Solu-Medrol by the emergency room physician and she will be admitted to PCU for acute on chronic hypoxic respiratory failure and acute exacerbation of COPD. I will obtain an echocardiogram to check for pulmonary hypertension, she will remain on IV Solu-Medrol and aggressive aerosol treatments. She will be given oral potassium, labs will be rechecked. I have reviewed Tavo Patino's history and physical and medical plan of care and endorse both Inpatient E AND M: [id number] Init Hosp L3 07/03/17 1731 <Electronically signed by Dariusz Gilmore DO> Date Dariusz Gilmore DO cc: JUAN Patino; Dariusz Gilmore DO; Patel Veliz MD * Signed Problem List (1) Acute and chronic respiratory failure with hypoxia Status: Acute (2) Nicotine abuse Status: Acute (3) Hypertension Status: Chronic (4) Obstructive sleep apnea Status: Chronic Comment: non-compliant with CPAP but has oxygen to wear at night (5) Pain, chronic Status: Chronic (6) Restless leg syndrome Status: Chronic (7) Seizure disorder Status: Chronic History of Present Illness Date of Admission: 07/03/17 Chief Complaint: SOB The patient is a 66 year old F who was discharged from the hospital yesterday after being admitted for an acute COPD exacerbation where she was treated with Bipap, aerosols, steroids, and levaquin. She went home with an oxygen tank and has O2 at home which she uses chronically, 3 lpm at rest and 4 lpm with exertion. She also has CHUY but does not have CPAP or BiPAP at home. She does not follow with pulmonology regularly and is managed by her PCP. She has been coughing with white mucus production. She is currently resting in bed stable on BiPAP in the ER and has received aerosols and steroids. At the time of discharge it as recommended that she go to skilled but she declined. After going home she tripped on her O2 concentrator cord and struck her head on a piece of furniture. Currently without complaints of pain. No fever or chills. She has smoked >40 years but denies smoking since last admission. She denies hx of heart disease, chf, pulm htn or fibrosis. She has chronic back pain from spinal stenosis for which she is on methadone. [] Past Medical History Past Medical History (Chronic Problems): Chronic Problems Depression (Chronic) Insomnia (Chronic) She takes Temazepam every night for sleep, prescribed by Dr. Veliz Hypertension (Chronic) Physical debility (Chronic) Degenerative disc disease, lumbar (Chronic) Pain, chronic (Chronic) Seizure disorder (Chronic) Restless leg syndrome (Chronic) Obstructive sleep apnea (Chronic) non-compliant with CPAP but has oxygen to wear at night Smokes with greater than 40 pack year history (Chronic) Allergies Penicillins Allergy (Verified 07/03/17 12:57) Anaphylaxis codeine Adverse Reaction (Verified 07/03/17 12:57) Nausea Home Medications: Ambulatory Orders Medication Instructions Recorded Surgical History: appendectomy, cholecystectomy, - - Fractured right ankle, carpal tunnel surgery, removal of teeth, right ovariectomy and fallopian tube removal. Psychiatric History: Depression - untreated BACK SIZER History: No pertinent BACK SIZER history Lives: Alone Smoking Status: Former smoker Tobacco Use: Cigarettes Alcohol: None Drugs: None - *Family History Maternal History Items: Diabetes Paternal History Items: No pertinent history Sibling History Items: No pertinent history Review of Systems Constitutional: Denies: Chills, Fever, Weight Change HEENT: Denies: Head Aches, Sinus Congestion, Sinus Drainage Cardiovascular: Denies: Chest Pain, Palpitations Respiratory: Reports: Cough, Shortness of Breath, Shortness of breath at rest, Shortness of breath upon exertion, Sputum production, Wheezing. Denies: Hemoptysis Gastrointestinal: Denies: Abdominal Pain, Nausea, Vomiting Genitourinary: Denies: Dysuria Musculoskeletal: Denies: Joint Pain, Joint Tenderness Skin: Denies: Rash, Wounds Neurological: Denies: Numbness, Tingling, Focal weakness Psychiatric: Denies: Anxiety, Depression, Homicidal Ideations, Suicidal Ideations Hematologic/ Lymphatic: Denies: Easy Bruising, Easy Bleeding VTE Information - Inpt Only VTE Present on Admission: No VTE Mechan Device Prophylaxis: SCD's VTE Pharm Prophylaxis ordered?: Yes Patient Problems: Active and Suspected Problems Acute and chronic respiratory failure with hypoxia (Acute) Nicotine abuse (Acute) - Physical Exam General: Alert, Oriented x3, Cooperative HEENT: Atraumatic, PERRLA, EOMI, Normocephalic Neck: Supple, No JVD, Negative Carotid Bruits Lungs: Diminished, Wheezes Cardiovascular: Regular rate, No murmurs Abdomen: Bowel Sounds Present, Soft, Non Tender Extremities: No edema, Capillary Refill Less than 3 Seconds, - - negative petra/ovi sign Skin: No rashes, No breakdown Musculoskeletal: No Tenderness to Palpation of Joints or Extremities Neurological: Cranial nerves II-XII grossly intact Psych/Mental Status: Normal Affect, Appropriate, Alert and oriented to time, place, person, mood and affect Vital Signs Temp Pulse Resp BP Pulse Ox 97.7 F L 107 H 18 120/74 99 07/03/17 13:08 07/03/17 15:19 07/03/17 15:19 07/03/17 15:19 07/03/17 15:19 Oxygen Flow Rate 4 Oxygen Delivery Method Bi-pap Weight: 70 kg Body Mass Index (BMI) 27.3 Laboratory Tests Past 24 Hrs WBC 9.6 RBC 4.69 WBC RBC Hgb Hct Assessment/Plan Active and Suspected Problems Acute and chronic respiratory failure with hypoxia (Acute) Nicotine abuse (Acute) 1. Acute on chronic hypoxic respiratory failure 2/2 acute COPD exacerbation - currently stable on BiPAP. Very dyspneic with severely diminished lung sounds and faint wheezing on exam. Recent viral and flu studies negative, recent negative sputum. Afebrile with no leukocytosis. Productive cough. Doubt infectious etiology. Solumedrol, aerosols, pulm consult, bipap. CTA is pending. She is tachycardic. CXR is unremarkable. Recently on levaquin. Check Echo and bnp. 2. CHUY - does not use CPAP/BiPAP at home 3. Debility - PTOT. Recent fall at home. 4. Chronic pain from spinal stenosis and insomnia - on benzos and high dose pain meds at home complicating her respiratory care. 5. HTN - stable 6. Nicotine abuse - has not smoked since before last admission. 7. Elevated glucose - check A1C add SSI, will likely worsen with solumedrol. No hx Diabetes. DVT ppx: lovenox, SCDs DC planning: refused SNF at last admission then went home and fell, probably needs placement. This patient was seen by Tavo Patino PA-C under the supervision of Doctor Mando. 07/03/17 1612 <Electronically signed by Tavo MARTINEZ> Date Tavo MARTINEZ 07/03/17 1723<Electronically signed by Dariusz Gilmore DO> Cosigner Signature: Date (if applicable) Dariusz Gilmore DO CC: JUAN Patino; Dariusz Gilmore DO; Patel Veliz MD Signed CTA CHEST W/WO Observed: 07/03/2017 Status: F Source: [place] CONTRAST 2:28 PM [facility] REPOSITORY [facility] Imaging Services [address] [place] [address] CTA Chest W/WO Contrast MR#: [id number] Acct: [id number] Name: XANDER RAMIREZ Rep #: [id number] : 1950 F 66 From: Tami Ramirez MD PCP: Patel Veliz MD, Chi Status: ADM IN Study: CTA Chest W/WO Contrast Date of Exam: 07/03/17 Exam# [id number] Ordering Dr: Roopa Victor MD STUDY: CTA CHEST REASON FOR EXAM: Female, 66 years old. Increased shortness of breath with after recent hospital stay. RADIATION DOSAGE (If Supplied By Facility): CTDIvol = ( 21.02 ) mGy, DLP = ( 631.01 ) mGycm TECHNIQUE: The examination was performed with the intravenous administration of 33 ml of Isovue 370 contrast material. Post-processing of the angiographic images was performed, with multiplanar reformation and 3D reconstruction. Several images are limited by patient motion and streak artifact from patient's arms. Individualized dose optimization techniques were used for this CT. COMPARISON: Prior comparable comparison studies are not available for review at this time. FINDINGS: There is limited enhancement of the main pulmonary artery and right and left pulmonary arteries. There is limited enhancement of the bilateral peripheral pulmonary arteries. No large or central pulmonary emboli are visualized. Segmental emboli are not excluded. There is atherosclerotic tortuosity of the aortic arch and descending thoracic aorta. Maximum transverse dimension of the ascending thoracic aorta measuring about 3.5 cm in greatest transverse dimension. There is no demonstrated aortic dissection. Normal heart and pericardium. There are visualized mediastinal lymph nodes, which are within normal size limits, and with normal morphology. Normal hilar regions. Normal visualized trachea and bronchi. The lungs are hyper expanded, with flattening of the hemidiaphragms. There are patchy areas of airspace consolidation in the posterior segments of both lower lobes. This possible this represents a dependent atelectasis. There is diffuse prominence of bronchovascular markings. There is heterogeneous groundglass attenuation at the lung apices. Normal pleura. Normal chest wall structures. The bones appear osteopenic. There is mild increased thoracic kyphosis. There is a left adrenal nodule measuring approximately 1.3 cm in greatest dimension. The right adrenal gland has a normal appearance. There is a small hiatal hernia CT/CTA Chest W/WO Contrast IMPRESSION: 1. Technically limited CTA without evidence for large or central pulmonary embolus. Segmental emboli are not excluded. 2. COPD and pulmonary congestion. 3. Patchy airspace disease, as described. Electronically Signed: Tami Ramirez MD at 17:59 EST , Service support , CC: Roopa Victor MD; Patel Veliz MD Extraction Operator: Signed BLOOD GASES BY CPS Collected: 07/03/2017 Status: F Source: [place] 1:47 PM [facility] REPOSITORY TYPE CODE TESTS RESULT OUT OF RANGE REFERENCE UNITS LAB L9000.9990 Normal BLD GAS TYPE ART LAB L9001.1000 R Normal SITE Brachial LAB L9001.1050 O2 Bi Normal Delivery Dev / C PAP LAB L9001.1074 50 Normal FI02 LAB L9001.1088 18 Normal IPAP LAB L9001.1090 9 Normal EPAP LAB L9001.1104 ED Normal Results To LAB L9001.1105 Normal Time Given 1340 LAB L9001.1110 7.35-7.45 pH Normal - I-STAT 7.44 LAB L9001.1210 35-45 mmHg High pCO2 - ISTAT 46.8 LAB L9001.1310 75-100 mmHG 88 Normal PO2 I-STAT LAB L9001.2300 22-26 mmol/L High HCO3 ISTAT 32.0 LAB L9001.2400 -2 to +2 mmol/L High BE 8 ISTAT LAB L9001.2415 mmol/L 33 Normal TOTAL CO2 ISTAT LAB L9001.2425 95-99 % 97 Normal SO2 ISTAT Performed By: #### L9000.0800 #### [facility] Point of Care [address] [place] [address] Observed: 07/03/2017 Status: F Source: [place] CULTURE, BLOOD (WB) 1:35 PM [facility] REPOSITORY BC No growth in 5 days. Performed By: #### M200.1000 #### [facility] [address] [place], [address] CBC W/DIFF, AUTOMATED Collected: 07/03/2017 Status: F Source: [place] 1:25 PM [facility] REPOSITORY TYPE CODE TESTS RESULT OUT OF RANGE REFERENCE UNITS LAB L100.1000 4.4-11.0 K/mm3 Normal WBC 9.6 LAB L100.1200 4.2-5.4 M/mm3 Normal RBC 4.69 LAB L100.1300 12.0-15.0 g/dl Normal HGB 14.7 LAB L100.1400 37-47 % Normal HCT 44.0 LAB L100.1500 81-99 fL Normal MCV 93.8 LAB L100.1600 27.0-32.0 pg Normal MCH 31.3 LAB L100.1700 32-36 g/gl Normal MCHC 33.4 LAB L100.1810 11.6-14.6 % Normal RDW CV 13.5 LAB L100.1820 35.1-43.9 fl High RDW SD 44.0 LAB L100.1900 150-450 K/mm3 Normal PLT 283 LAB L100.2000 6.2-12.0 fl Normal MPV 9.4 LAB L100.2100 47-70 % Normal NEUT% 65.6 LAB L100.2200 19-41 % Normal LY% 20.6 LAB L100.2300 0-10 % Normal MONO% 7.3 LAB L100.2400 0-5 % Normal EO% 4.3 LAB L100.2500 0-1 % Normal BASO% 0.3 LAB L100.2550 0.0-0.9 % High IM GRAN % 1.900 Result Comment: IG% - Immature Granulocytes (promyelocytes, myelocytes and metamyelocytes) > 1% indicates that a LEFT SHIFT is Present. LAB L100.2620 2.0-7.7 X10 3/uL Normal Absolute Neut 6.3 LAB L100.2720 0.83-4.51 X10 3/ul Normal Absolute Lymph 1.98 Performed By: #### L100.0100 #### [facility] [address] [facility] [place], [address] BASIC METABOLIC Collected: 07/03/2017 Status: F Source: [place] PROFILE (BMP) 1:25 PM [facility] REPOSITORY Order Comment: 'TROP' Serial specimen #1, #2, #3, or #4: 1 TYPE CODE TESTS RESULT OUT OF RANGE REFERENCE UNITS LAB L501.0100 70-110 mg/dL High GLU 157 Result Comment: Fasting Glucose result greater than or equal to 126 mg/dL suggests DIABETES MELLITUS per A.D.A. criteria. LAB L501.1000 7-18 mg/dL Normal BUN 17 LAB L501.1100 0.55-1.02 mg/dL Normal CREAT,SERUM 0.61 Result Comment: The validity of the calculated GFR AND GFRAA in patients over 70 years has not been determined. Clinical correlation is essential. LAB L501.1110 >60 mL/min Normal EST GFR 103 Result Comment: Non- GFR Calc LAB L501.1115 >60 mL/min Normal EST GFR - AA 125 Result Comment: GFR Calc LAB L501.1255 ml/min Normal Estimated CRCL 45.16 LAB L501.1300 10-20 RATIO High BUN/CRE 27.7 LAB L501.2200 8.5-10 mg/dL Normal .1 CA 9.1 LAB L501.5300 136-14 mmol/L Normal 5 NA 142 LAB L501.5600 3.5-5. mmol/L Low 1 K 3.1 LAB L501.5900 98-107 mmol/L Normal CL 99 LAB L501.6100 21.0-3 mmol/L Normal 2.0 CO2 31.0 LAB L501.6200 5-15 Normal GAP 12 Performed By: #### L500.2500, L501.4010 #### [facility] [address] [facility] [place], [address] TROPONIN-I Collected: 07/03/2017 Status: F Source: [place] 1:25 PM [facility] REPOSITORY Order Comment: 'TROP' Serial specimen #1, #2, #3, or #4: 1 TYPE CODE TESTS RESULT OUT OF RANGE REFERENCE UNITS LAB L501.4010 <0.06 ng/mL Normal < 0.02 TROPONIN-I Result Comment: TROPONIN-I EXPECTED VALUES <0.05 NEGATIVE 0.06 - 0.59 AT RISK OF DE > OR = 0.60 SUGGEST DE Performed By: #### L500.2500, L501.4010 #### [facility] [address] [place], [address] LACTIC ACID Collected: 07/03/2017 Status: F Source: [place] 1:25 PM [facility] REPOSITORY Order Comment: Yes/No query for Sepsis Lactate Rule Y TYPE CODE TESTS RESULT OUT OF RANGE REFERENCE UNITS LAB L503.6005 0.4-2.0 mmol/L Normal LACTIC ACID 1.9 Performed By: #### L503.6005 #### [facility] [address] [facility] [place], [address] Observed: 07/03/2017 Status: F Source: [place] CULTURE, BLOOD (WB) 1:25 PM [facility] REPOSITORY BC No growth in 5 days. Performed By: #### M200.1000 #### [facility] [address] [facility] [place], [address] CHEST 1 VIEW Observed: 07/03/2017 Status: F Source: [place] (PORTABLE) 12:59 PM [facility] REPOSITORY [facility] Imaging Services [address] [place] [address] Chest 1 View (Portable) MR#: [id number] Acct: [id number] Name: XANDER RAMIREZ Rep #: [id number] : 1950 F 66 From: Rohit Phillips MD PCP: Jose Alfredo LEACH,Patel Garvey Status: PRE ER Study: Chest 1 View (Portable) Date of Exam: 07/03/17 Exam# [id number] Ordering Dr: Roopa Victor MD STUDY: X-RAY CHEST REASON FOR EXAM: Female, 66 years old. Shortness of breath TECHNIQUE: Single AP portable view of the chest. COMPARISON: Chest x-ray on June 28, 2017 FINDINGS: EKG leads are in place There are mild bilateral pulmonary interstitial changes There is no demonstrated pleural abnormality. Normal size heart. Normal mediastinum and denae. Normal visualized pulmonary arteries. Normal visualized aortic arch and descending thoracic aorta. Normal visualized thoracic spine. Normal visualized ribs, clavicles, and shoulders. There is no demonstrated abnormality of the visualized soft tissue structures of the upper abdomen. RAD/Chest 1 View (Portable) IMPRESSION: Stable chest. Mild bilateral pulmonary interstitial changes. No signs of acute disease Electronically Signed: Rohit Phillips MD, FACR at 13:24 EST , Service support , CC: Roopa Victor MD; Patel Veliz MD Extraction Operator: Signed DISCHARGE SUMMARY Observed: 07/02/2017 Status: F Source: [place] 10:07 AM [facility] Medical Records Department [address] [place] [address] Discharge Summary 07/02/17 1005 MR#: [id number] Acct: [id number] Name: XANDER RAMIREZ Rep #: [id number] : 1950 66 From: Thai Collado DO PCP: Jose Alfredo LEACH,Patel Garvey Status: ADM IN Location: [place] [address] Discharge Date and Diagnosis - Problem List Patient Problems: Active and Suspected Problems Acute respiratory failure with hypercapnia (Acute) Acute exacerbation of chronic obstructive airways disease (Acute) Date of Admission: 06/28/17 Date of Discharge: 07/02/17 - Primary Discharge Diagnosis Active and Suspected Problems Acute respiratory failure with hypercapnia (Acute) Acute exacerbation of chronic obstructive airways disease (Acute) 1. Acute COPD exacerbation Improved overall. Continue with bronchodilators, Solu-Medrol. Pulmonary following. Patient follow-up with pulmonology clinic 2 weeks after discharge. Compliance will be a concern. Continue with prednisone through the 17th complete 5 day course. 2. Acute hypercapnic respiratory failure Secondary to above Improved. Tolerating being off the BiPAP. Patient has oxygen at home but will need portable tanks. Discussed the rn case manager hospice will get the facility. 3. Underlying psych disorder Unclear the patient specifically diagnosed with but does see a counselor. Denies any suicidal nor homicidal ideation 4. Debility: Therapy recommended skilled therapy. Patient declined sniff. Patient is open to home health care. - Secondary Discharge Diagnosis Chronic Problems Depression (Chronic) Insomnia (Chronic) She takes Temazepam every night for sleep, prescribed by Dr. Veliz Hypertension (Chronic) Physical debility (Chronic) Degenerative disc disease, lumbar (Chronic) Pain, chronic (Chronic) Seizure disorder (Chronic) Restless leg syndrome (Chronic) Obstructive sleep apnea (Chronic) non-compliant with CPAP but has oxygen to wear at night Smokes with greater than 40 pack year history (Chronic) Hospital Course and Treatment Imaging Results: Clinical Impression(s) from Imaging Studies Chest X-Ray 06/28/17 02:48 IMPRESSION: No acute cardiopulmonary disease. Electronically Signed: Danilo Rodriguez MD at 4:48 EST , Service support , Operations: None Procedures: None Summary of Care Provided: The patient is a 66 year old F Tiffani with acute hypercapnic respiratory failure. Patient was found to have a COPD exacerbation and did require BiPAP. Patient was started on bronchodilators, Solu-Medrol. Subsequent patient was added on Levaquin as well. Patient has done well and has been able to tolerate being off the BiPAP for extended periods of time. The patient will continue with her home medications +40 mg daily of prednisone +4 more days of Levaquin. Patient does have oxygen at home but when he has condenser so she will get portable tanks prior to her being discharged today. Patient is instructed to follow-up with her primary care doctor within the next 1-2 weeks. Additionally, patient was seen by therapy who did recommend correction facility for the patient, patient declined stating that she would rather go with home health care. [] Discharge Diet: No Restrictions Discharge Activity: Return to Normal Activity Call your doctor if you observe: Fever of 101 or Higher, Shortness of breath Home Medications: Medications to take at Discharge Albuterol Aerosols [Ventolin Aerosols] 2.5 mg INHALATION Q4H PRN 05/12/16 Albuterol IH (ProAir) [Proair Hfa] 2 puff INHALATION BID 05/12/16 Alendronate Sodium [Fosamax] 70 mg PO Q7D@0700 05/12/16 Calcium Carbonate/Vitamin D3 [Oyster Shell 500-Vit D3 200 Tb] 1 each PO DAILY 05/12/16 Etodolac 400 mg PO BID 05/12/16 Fluticasone/Salmeterol [Advair 250/50 Mcg Diskus] 2 puff INHALATION BID 05/12/16 Gabapentin [Neurontin] 300 mg PO BIDCM 05/12/16 Methadone HCl 10 mg PO 4X/DAY 05/12/16 Phenytoin Na [Dilantin] 100 mg PO 4X/DAY 05/12/16 Pravastatin [Pravachol] 40 mg PO DAILY 05/12/16 Ropinirole HCl [Requip] 2 mg PO DAILY 05/12/16 Tolterodine Tartrate [Detrol LA] 4 mg PO DAILY 05/12/16 Bisacodyl [Dulcolax] 10 mg PO DAILY PRN PRN #0 tablet 06/25/16 Famotidine [Pepcid] 20 mg PO BID tablet 06/25/16 Mirtazapine [Remeron] 15 mg PO QHS tablet 06/25/16 Phenobarbital 30 mg PO BID #20 tablet 06/25/16 Benzonatate [Tessalon Perle] 100 mg PO 4X/DAY PRN PRN #30 cap 06/24/17 Oseltamivir Phosphate [Tamiflu] 75 mg PO BID #9 cap 06/24/17 Temazepam [Restoril] 30 mg PO QHS 06/24/17 Levofloxacin [Levaquin] 500 mg PO DAILY@0600 #4 tab 07/02/17 Prednisone 4 tab PO DAILY #16 tab 07/02/17 Following Prescrptions Were Given to Patient: Levofloxacin [Levaquin] 500 mg PO DAILY@0600 #4 tab Prednisone 4 tab PO DAILY #16 tab Primary Care Physician: Patel Veliz Chi, MD [Primary Care Provider] - Within 1 Week Patient Instructions: What is COPD?, Discharge Instructions: COPD, COPD: Using Inhalers Disposition: Home with Home Health Minutes spent on discharge:: 32 Patient Condition:: Fair Meaningful Use Info Meaningful Use Diagnoses (Choose all that apply): None applicable Code Visit Inpatient E AND M: 09838 Disch Hosp 07/02/17 1007 <Electronically signed by Thai Collado DO> Date Thai Collado DO Cosigner Signature (if applicable): Date CC: Thai Collado DO; Patel Veliz MD Signed DISCHARGE INSTRUCTION Observed: 07/02/2017 Status: F Source: [place] 10:05 AM [facility] REPOSITORY [facility] Medical Records Department [address] [place] [address] Instructions for Home/Discharge Instructions 07/02/17 1003 MR#: [id number] Acct: [id number] Name: XANDER RAMIREZ Rep #: [id number] : 1950 66 From: Thai Collado DO PCP: Patel Veliz MD, Chi Status: ADM IN - Discharge Diagnoses Current Active Problems: Current Active and Chronic Problems Acute respiratory failure with hypercapnia (Acute) Acute exacerbation of chronic obstructive airways disease (Acute) You will use the following diet at home:: No restrictions Your food should be the consistency of: Regular Your liquids should be the consistency of: Regular/Thin Discharge Activity: Return to Normal Activity Call your doctor if you observe: Fever of 101 or Higher, Shortness of breath Instructions: What is COPD?, Discharge Instructions: COPD, COPD: Using Inhalers Additional Instructions: oxygen 2liters continuous. Allergies/Adverse Reactions: Allergies Penicillins Allergy (Verified 06/28/17 02:38) Anaphylaxis codeine Adverse Reaction (Verified 06/28/17 02:38) Nausea Medications to take at Discharge Albuterol Aerosols [Ventolin Aerosols] 2.5 mg INHALATION Q4H PRN 05/12/16 Albuterol IH (ProAir) [Proair Hfa] 2 puff INHALATION BID 05/12/16 Alendronate Sodium [Fosamax] 70 mg PO Q7D@0700 05/12/16 Calcium Carbonate/Vitamin D3 [Oyster Shell 500-Vit D3 200 Tb] 1 each PO DAILY 05/12/16 Etodolac 400 mg PO BID 05/12/16 Fluticasone/Salmeterol [Advair 250/50 Mcg Diskus] 2 puff INHALATION BID 05/12/16 Gabapentin [Neurontin] 300 mg PO BIDCM 05/12/16 Methadone HCl 10 mg PO 4X/DAY 05/12/16 Phenytoin Na [Dilantin] 100 mg PO 4X/DAY 05/12/16 Pravastatin [Pravachol] 40 mg PO DAILY 05/12/16 Ropinirole HCl [Requip] 2 mg PO DAILY 05/12/16 Tolterodine Tartrate [Detrol LA] 4 mg PO DAILY 05/12/16 Bisacodyl [Dulcolax] 10 mg PO DAILY PRN PRN #0 tablet 06/25/16 Famotidine [Pepcid] 20 mg PO BID tablet 06/25/16 Mirtazapine [Remeron] 15 mg PO QHS tablet 06/25/16 Phenobarbital 30 mg PO BID #20 tablet 06/25/16 Benzonatate [Tessalon Perle] 100 mg PO 4X/DAY PRN PRN #30 cap 06/24/17 Oseltamivir Phosphate [Tamiflu] 75 mg PO BID #9 cap 06/24/17 Temazepam [Restoril] 30 mg PO QHS 06/24/17 Levofloxacin [Levaquin] 500 mg PO DAILY@0600 #4 tab 07/02/17 Prednisone 4 tab PO DAILY #16 tab 07/02/17 The following prescriptions were given: Levofloxacin [Levaquin] 500 mg PO DAILY@0600 #4 tab Prednisone 4 tab PO DAILY #16 tab Primary Care Physician: Patel Veliz Chi, MD [Primary Care Provider] - Within 1 Week Proposed Discharge Date: 07/02/17 07/02/17 1005 <Electronically signed by Thai Collado DO> Date Thai Collado DO CC: Leobardo Ford MD; Patel Veliz MD BASIC METABOLIC Collected: 06/30/2017 Status: F Source: [place] PROFILE (BMP) 6:50 AM [facility] REPOSITORY TYPE CODE TESTS RESULT OUT OF RANGE REFERENCE UNITS LAB L501.0100 70-110 mg/dL High GLU 149 Result Comment: Fasting Glucose result greater than or equal to 126 mg/dL suggests DIABETES MELLITUS per A.D.A. criteria. LAB L501.1000 7-18 mg/dL High BUN 20 LAB L501.1100 0.55-1.02 mg/dL Low CREAT,SERUM 0.45 Result Comment: The validity of the calculated GFR AND GFRAA in patients over 70 years has not been determined. Clinical correlation is essential. LAB L501.1110 >60 mL/min Normal EST GFR 147 Result Comment: Non- GFR Calc LAB L501.1115 >60 mL/min Normal EST GFR - AA 178 Result Comment: GFR Calc LAB L501.1255 ml/min Normal Estimated CRCL 49.12 LAB L501.1300 10-20 RATIO High BUN/CRE 44.4 LAB L501.2200 8.5-10 mg/dL Low .1 CA 8.1 LAB L501.5300 136-14 mmol/L Normal 5 NA 141 LAB L501.5600 3.5-5. mmol/L Normal 1 K 3.9 LAB L501.5900 98-107 mmol/L Normal CL 106 LAB L501.6100 21.0-3 mmol/L Normal 2.0 CO2 29.0 LAB L501.6200 5-15 Normal GAP 6 Performed By: #### L500.2500, L501.2300, L501.5200 #### [facility] [address] [place], [place], [address] PHOSPHORUS Collected: 06/30/2017 Status: F Source: [place] 6:50 AM [facility] REPOSITORY TYPE CODE TESTS RESULT OUT OF RANGE REFERENCE UNITS LAB L501.2300 2.5-4.9 mg/dL Normal PHOS 2.5 Performed By: #### L500.2500, L501.2300, L501.5200 #### [facility] [address] [place], [address] MAGNESIUM Collected: 06/30/2017 Status: F Source: [place] 6:50 AM [facility] REPOSITORY TYPE CODE TESTS RESULT OUT OF RANGE REFERENCE UNITS LAB L501.5200 1.8-2.4 mg/dL Normal MG 2.2 Performed By: #### L500.2500, L501.2300, L501.5200 #### [facility] [address] [place], [address] CBC W/DIFF, AUTOMATED Collected: 06/30/2017 Status: F Source: [place] 6:50 AM [facility] REPOSITORY TYPE CODE TESTS RESULT OUT OF RANGE REFERENCE UNITS LAB L100.1000 4.4-11.0 K/mm3 Normal WBC 4.9 LAB L100.1200 4.2-5.4 M/mm3 Low RBC 3.63 LAB L100.1300 12.0-15.0 g/dl Low HGB 11.1 LAB L100.1400 37-47 % Low HCT 34.9 LAB L100.1500 81-99 fL Normal MCV 96.1 LAB L100.1600 27.0-32.0 pg Normal MCH 30.6 LAB L100.1700 32-36 g/gl Low MCHC 31.8 LAB L100.1810 11.6-14.6 % Normal RDW CV 13.4 LAB L100.1820 35.1-43.9 fl High RDW SD 44.9 LAB L100.1900 150-450 K/mm3 Normal PLT 176 LAB L100.2000 6.2-12.0 fl Normal MPV 9.3 LAB L100.2100 47-70 % Normal NEUT% 51.6 LAB L100.2200 19-41 % Normal LY% 35.9 LAB L100.2300 0-10 % High MONO% 10.7 LAB L100.2400 0-5 % Normal EO% 0.0 LAB L100.2500 0-1 % Normal BASO% 0.6 LAB L100.2550 0.0-0.9 % High IM GRAN % 1.200 Result Comment: IG% - Immature Granulocytes (promyelocytes, myelocytes and metamyelocytes) > 1% indicates that a LEFT SHIFT is Present. LAB L100.2620 2.0-7.7 X10 3/uL Normal Absolute Neut 2.5 LAB L100.2720 0.83-4.51 X10 3/ul Normal Absolute Lymph 1.75 LAB L100.4500 Normal SMEAR COMMENT COMMENT Result Comment: SLIDE SCANNED - RARE ATYPICAL LYMPHS SEEN. Performed By: #### L100.0100 #### [facility] [address] [place], [address] BEDSIDE GLUCOSE Collected: 06/29/2017 Status: F Source: [place] 10:23 PM [facility] REPOSITORY TYPE CODE TESTS RESULT OUT OF REFERENCE UNITS RANGE LAB L501.080 70-110 mg/dL High BEDSIDE GLU 230 Result Comment: MANAGEMENT OF PATIENT CARE PER NURSING PROTOCOL Performed By: #### L501.080 #### [facility] Point of Care [address] [place] [address] Observed: 06/29/2017 Status: F Source: [place] CULTURE, SPUTUM 3:50 PM [facility] REPOSITORY Gram Stain Specimen is contaminated with saliva and as such may not represent an accurate assesment of the patients' pulmonary/respiratory condition. Acceptable Specimen? No (>25 Epithelial cells per/lpf) Gram Stain 3+ Epithelial cells 3+ White Blood Cells 3+ Gram positive rods 3+ Gram positive cocci in chains and clusters Resp. Culture Mixed normal respiratory zulma. No Haemophilus, Streptococcus pneumoniae, beta-hemolytic Streptococcus or Staphylococcus aureus isolated. Performed By: #### M100.0800 #### [facility] [address] [place], [address] 12 LEAD ELECTROCARDIOGRAM Observed: 06/29/2017 Status: F Source: [place] 3:40 PM [facility] REPOSITORY [facility] Cardiovascular Services [address] [place] [address] 12 Lead EKG 06/28/17 0319 MR#: [id number] Acct: [id number] Name: XANDER RAMIREZ Rep #: [id number] : 1950 66 From: Saulo Moss MD Attending Dr: Thai Collado DO Status: ADM IN Ordering Dr: Cristofer Marmolejo MD Date: 06/28/17 Location: [facility] Sex: F C Admitted: 06/28/17 Test Reason : SOB Blood Pressure : / mmHG Vent. Rate : 106 BPM Atrial Rate : 106 BPM P-R Int : 160 ms QRS Dur : 084 ms QT Int : 334 ms P-R-T Axes : 084 063 041 degrees QTc Int : 443 ms Sinus tachycardia Low voltage QRS (limb leads) Confirmed by JAMES LEACH, SAULO (1960), web content editor GOPI RAMIREZ ([id number]) on 06/29/2017 3:39:27 PM Referred By: CHAPO Confirmed By:SAULO MOSS MD 06/29/17 1539 Date Saulo Moss MD CC: Patel Veliz MD Signed CONSULTATION Observed: 06/29/2017 Status: F Source: [place] 2:43 PM [facility] REPOSITORY [facility] Medical Records Department [address] [place] [address] Consultation 06/29/17 0815 MR#: [id number] Acct: [id number] Name: XANDER RAMIREZ Rep #: [id number] : 1950 66 From: Elana Barajas [employer] PCP: Patel Veliz MD, Chi Status: ADM IN Y [id number] ADDENDUM by Leobardo Ford MD on 06/29/17 at 1443 Code Visit Patient seen and examined independently in conjunction with nurse practitioner. All data, including note below, was personally reviewed and I agree with the added comments. Patient's history is accurate as listed below. However, patient is giving differing reports. Patient did state that she has been diagnosed with COPD for quite some time and has been on steroids frequently. Patient does have a history of obstructive sleep apnea, but is noncompliant with her CPAP therapy. Patient does wear supplemental oxygen when I need it. She denies any environmental exposures. Patient does report sick exposures. Patient is unclear if she has ever had pulmonary function test previously. Physical exam was and apparently performed. Of note, patient did have wheezing noted throughout all lung tomlinsno with fair air exchange. Patient is edentulous with a Mallampati 3 posterior pharynx. No murmurs were appreciated. Patient did not have any appreciable lower extremity edema. Laboratory data was significant for a lack of leukocytosis, adequate oxygenation and ventilation on Ventimask and possible CO2 retention is demonstrated by elevated bicarbonate. Assessment and plan Agree with obtaining sputum culture and respiratory viral panel. Patient should remain on IV steroids and bronchodilators for now. Patient does have a history of osteoporosis by previous DEXA scan. Review of an old CT scan from 2012 did show early bronchiectasis. This could be followed up as an outpatient. Patient does need complete pulmonary function test. Walking oximetry prior to discharge. Some concern given the need for steroids in someone with a history of psych issues. Will need to watch closely for delirium. Did encourage smoking cessation Inpatient E AND M: [id number] Init Hosp L3 06/29/17 1443 <Electronically signed by Leobardo Ford MD> Date Leobardo Ford MD cc: Leobardo Ford MD; Patel Veliz MD * Signed Problem List (1) COPD (chronic obstructive pulmonary disease) Status: Acute Qualifiers: COPD type: COPD with acute exacerbation Qualified Code(s): J44.1 - Chronic obstructive pulmonary disease with (acute) exacerbation Comment: 1 ppd now smoker 4 ppd (2) Depression Status: Chronic (3) Insomnia Status: Chronic Comment: She takes Temazepam every night for sleep, prescribed by Dr. Veliz (4) Hypertension Status: Chronic (5) Degenerative disc disease, lumbar Status: Chronic (6) Pain, chronic Status: Chronic (7) Seizure disorder Status: Chronic (8) Restless leg syndrome Status: Chronic (9) Obstructive sleep apnea Status: Chronic Comment: non-compliant with CPAP but has oxygen to wear at night (10) Smokes with greater than 40 pack year history Status: Chronic Reason for Consult Date of Consultation: 06/29/17 Reason for Consultation: COPD History of Present Illness: The patient is a 66 year old F with a past medical history as below who presented to the ER on 06/28/17 with complaints of increased shortness of breath, intermittent fevers and chills, cough, chest tightness, and chest congestion. The patient did present to the ER on 06/24/17 with upper respiratory symptoms. A chest x-ray was done at that time and showed no acute cardiopulmonary disease. A flu swab was also completed which was normal. The patient was sent home. She reports she then worsened with her cough, shortness of breath, and fevers/chills, so she came back. She denies any recent sick contacts, antibiotic use, or steroids. Actually, she states she has never been on steroids despite her lung history. She denies any history of pneumonia, except when she was a teenager. She has been admitted to the hospital for COPD exacerbation previously, about the same time last year. Patient has a history of obstructive sleep apnea per her report, but she is not compliant with her CPAP. She does however wear 4 L of oxygen continuously throughout the day and night. Patient reports she has been on oxygen for over 10 years, which is when she had her sleep study as well. She believes [facility] She lives alone in her apartment complex, and states there are several people there that she has been around and that have been coughing. The patient denies any history of tuberculosis or exposure to asbestos. She was a hxdf-hj-yuco mom. Workup in the ER included chest x-ray which was negative for acute cardiopulmonary disease, did show hyperinflation. Lab work did not show a leukocytosis. Chemistry was remarkable for a creatinine of 0.51, glucose 144. Troponin was negative. ABG was performed on a Venturi mask and showed a pH of 7.39, bicarb of 29.6, PCO2 48.4, PO2 116. She was then placed on BiPAP due to significant respiratory distress and had significant improvement. She was given 4 mg of IV morphine 1, IV Solu-Medrol, IV Levaquin, and Tylenol for fever. She was admitted to the progressive care unit for further management of her presumed COPD exacerbation. Past Medical History Past Medical History (Chronic Problems): Chronic Problems Depression (Chronic) Insomnia (Chronic) She takes Temazepam every night for sleep, prescribed by Dr. Veliz Hypertension (Chronic) Physical debility (Chronic) Degenerative disc disease, lumbar (Chronic) Pain, chronic (Chronic) Seizure disorder (Chronic) Restless leg syndrome (Chronic) Obstructive sleep apnea (Chronic) non-compliant with CPAP but has oxygen to wear at night Smokes with greater than 40 pack year history (Chronic) Allergies Penicillins Allergy (Verified 06/28/17 02:38) Anaphylaxis codeine Adverse Reaction (Verified 06/28/17 02:38) Nausea Home Medications: Ambulatory Orders Medication Instructions Recorded Surgical History: appendectomy, cholecystectomy, - - Fractured right ankle, carpal tunnel surgery, removal of teeth, right ovariectomy and fallopian tube removal. Psychiatric History: Depression - untreated BACK SIZER History: No pertinent BACK SIZER history Lives: Alone Smoking Status: Current every day smoker Tobacco Use: Cigarettes Alcohol: None Drugs: None - *Family History Maternal History Items: No pertinent history Paternal History Items: No pertinent history Sibling History Items: No pertinent history Review of Systems Constitutional: Reports: Chills, Fever, Fatigue. Denies: Anorexia, Night Sweats, Malaise, Weakness, Weight Change Eyes: Denies: Vision Change HEENT: Reports: Head Aches, Post Nasal Drip. Denies: Difficulty Swallowing, Nasal bleeding, Nasal Congestion, Sinus Congestion, Sinus Drainage, Sore Throat Cardiovascular: Reports: Chest Tightness, Orthopnea. Denies: Chest Pain, Claudication, Edema, Light Headedness, Palpitations, Paroxysmal Noc. Dyspnea, Syncope Respiratory: Reports: Cough, Shortness of breath at rest, Shortness of breath upon exertion, Sputum production - white, thick, Wheezing. Denies: Hemoptysis, Pleuritic Pain Gastrointestinal: Reports: Diarrhea - x1 several days ago, none since, Nausea - intermittent. Denies: Abdominal Pain, Constipation, Dyspepsia, Hematemesis, Hematochezia, Melena, Vomiting Genitourinary: Denies: Dysuria, Frequency, Hematuria, Nocturia, Retention Gynecological: Reports: - - no concerns Musculoskeletal: Reports: Back Pain - chronic Skin: Reports: Dryness, - - evidence of cutting on legs and upper arms Neurological: Reports: Tremor - UEs at times. Denies: Change in Speech, Confusion, Difficulty swallowing, Focal weakness, Numbness, Tingling, Seizures - none recently Psychiatric: Reports: Anxiety, Depression. Denies: Homicidal Ideations, Suicidal Ideations Endocrine: Denies: Change in Body Habitus, Polydipsia, Polyuria Hematologic/ Lymphatic: Reports: Easy Bruising. Denies: Adenopathy, Anemia, Easy Bleeding, Hx of blood clot Patient Problems: Active and Suspected Problems Acute exacerbation of chronic obstructive airways disease (Acute) Subjective: Patient was seen and examined, she was in mild respiratory distress upon my entering room and watching the news. She was upset that she was interrupted. Reports ongoing shortness of breath at rest and with exertion. She does have a hoarse, productive cough white thick sputum. She denies any sore throat, hemoptysis, dizziness, or syncope. She does have some chest tightness. Reports she does better on the BiPAP and is requesting to go back on as she became more dyspneic with conversation. - Physical Exam General: Alert, Oriented x3, Cooperative, Well developed, Well nourished, - - Conversational dyspnea, tachypnea. Appears anxious HEENT: Atraumatic, Normocephalic Oral: Moist Mucosa, No Gingival or Mucosal Lesions/ Ulcerations, - - Edentulous Neck: Supple, No Nodes, Trachea Midline Lungs: No rales, - - Diminished throughout with global wheezing, rhonchi Cardiovascular: Regular rate, Regular Rhythm, Normal S1, Normal S2, No murmurs, No rub noted, No Gallop Abdomen: Bowel Sounds Present, Soft, Non Tender, Non-Distended, Passing Flatus, Obese Extremities: No clubbing, No cyanosis, No edema, Capillary Refill Less than 3 Seconds, Peripheral Pulses Normal Skin: No rashes, - - Scratches to upper extremities and bilateral shins, admitted to hospitalist that she has been cutting Musculoskeletal: No Tenderness to Palpation of Joints or Extremities Lymphatic: No Cervical, Supraclavicular, or Inguinal Adenopathy Neurological: Cranial nerves II-XII grossly intact, Neuro grossly intact, Motor Exam 5/5 strength throughout Psych/Mental Status: Anxious, Impulsive, - - cooperative after some discussion Vital Signs Temp Pulse Resp BP Pulse Ox 97.4 F L 86 16 95/44 L 97 06/29/17 02:34 06/29/17 07:28 06/29/17 07:28 06/29/17 02:34 06/29/17 07:28 Oxygen Flow Rate 5 Oxygen Delivery Method Bi-pap Weight: 181 lb 10.574 oz Body Mass Index (BMI) 30.2 Intake and Output for Last 24 Hours Intake Total 240 / 240 460 / 460 Balance 240 / 240 460 / 460 Laboratory Tests Past 24 Hrs WBC 4.6 RBC 3.60 L Hgb 11.2 L Hct 34.6 L MCV 96.1 MCH 31.1 MCHC 32.4 RDW 13.6 Assessment/Plan Active and Suspected Problems Acute exacerbation of chronic obstructive airways disease (Acute) RECOMMENDATIONS 1. Wean oxygen supplementation to keep saturations 88-92%. 2. Encourage incentive spirometer 3. Increase activity as tolerated 4. Continue aerosols, add PRN albuterol 5. Obtain respiratory panel 6. Obtain sputum culture 7. Continue IV steroids 8. Walking oximetry prior to discharge 9. Patient may follow-up in the pulmonary clinic if she so desires, she should have baseline pulmonary function tests and a repeat PSG IMPRESSIONS 1. Acute exacerbation of COPD, presumed Patient with diffuse wheezing, tachypnea, shortness of breath. Requesting to go on BiPAP during my examination as it provides significant subjective relief. Current home inhalers include Advair and Ventolin as needed. She follows with Dr. Veliz, does not have a lace weaver. She has never had any lung function tests in the past. She is on baseline 4 L of oxygen continuously at home. Her chest x-ray was reviewed, did show hyperinflation but no acute cardiopulmonary process. I suspect the patient does have COPD, likely advanced, however this has not been confirmed with PFTs. Plan: Continue Duonebs, add PRN albuterol aerosol. No leukocytosis and no purulent sputum, so would hold off on antibiotics for now. Had a temp of 100.5 on arrival but currently afebrile. Continue with IV steroids. Encourage incentive spirometer and increase activity as tolerated. Wean oxygen supplementation to keep saturations 88-92%. Obtain respiratory panel and sputum culture. The patient should have a walking oximetry prior to discharge. The patient may follow-up in the pulmonary clinic if she desires, she should have baseline pulmonary function tests performed to evaluate lung function. 2. Acute on chronic respiratory failure with hypoxia and hypercapnia Again, patient is on baseline 4 L of oxygen,and has been for over 10 years per her report. There is no pulmonary function tests to review or walking oximetry. Her last CT of the chest that is available to view reported hyperinflation of the lungs consistent with COPD, no pleural abnormality. There was mild intrahepatic biliary duct dilatation. Otherwise normal. She has a significant smoking history, she smoked about 4 PPD for 45 years, recently decreased to about a 1/2 to 1 PPD. She notes she never smokes with her oxygen on. She is not currently interested in smoking cessation, however she has thought about it. Smoking cessation was encouraged. 3. Obstructive sleep apnea Noncompliant with CPAP at home. Patient is on several sedating medications at home which could complicate her CHUY and cause more hypoxia. She reports she wears 4 L when sleeping. It has been a while since her last sleep study, she is unsure when. There is no record in our system. 3. 06/29/17 1034 <Electronically signed by Elana MARTÍNEZ> Date Elana MARTÍNEZ Cosigner Signature (if applicable): Date CC: Leobardo Ford MD; Patel Veliz MD Signed Observed: 06/29/2017 Status: F Source: [place] RESPIRATORY PANEL 10:30 AM [facility] MOLECULAR REPOSITORY RP PANEL Normal Reference Range = Not Detected ADENOVIRUS Not Detected HUMAN METAPHNEUMO Not Detected INFLUENZA A Not Detected INFLUENZA A (SUBTYPE H1) Not Detected INFLUENZA A (SUBTYPE H3) Not Detected INFLUENZA B Not Detected PARAINFLUENZA 1 Not Detected PARAINFLUENZA 2 Not Detected PARAINFLUENZA 3 Not Detected PARAINFLUENZA 4 Not Detected RHINOVIRUS Not Detected RSV A Not Detected RSV B Not Detected NAAT METHOD Testing was performed using nucleic acid amplification Performed By: #### M100.638 #### [facility] [place] [address], [address] CBC W/DIFF, AUTOMATED Collected: 06/29/2017 Status: F Source: [place] 6:00 AM [facility] REPOSITORY TYPE CODE TESTS RESULT OUT OF RANGE REFERENCE UNITS LAB L100.1000 4.4-11.0 K/mm3 Normal WBC 4.6 LAB L100.1200 4.2-5.4 M/mm3 Low RBC 3.60 LAB L100.1300 12.0-15.0 g/dl Low HGB 11.2 LAB L100.1400 37-47 % Low HCT 34.6 LAB L100.1500 81-99 fL Normal MCV 96.1 LAB L100.1600 27.0-32.0 pg Normal MCH 31.1 LAB L100.1700 32-36 g/gl Normal MCHC 32.4 LAB L100.1810 11.6-14.6 % Normal RDW CV 13.6 LAB L100.1820 35.1-43.9 fl High RDW SD 45.7 LAB L100.1900 150-450 K/mm3 Normal PLT 157 LAB L100.2000 6.2-12.0 fl Normal MPV 9.2 LAB L100.2100 47-70 % Normal NEUT% 48.1 LAB L100.2200 19-41 % Normal LY% 36.9 LAB L100.2300 0-10 % High MONO% 13.4 LAB L100.2400 0-5 % Normal EO% 0.0 LAB L100.2500 0-1 % Normal BASO% 0.9 LAB L100.2550 0.0-0.9 % Normal IM GRAN % 0.700 Result Comment: IG% - Immature Granulocytes (promyelocytes, myelocytes and metamyelocytes) > 1% indicates that a LEFT SHIFT is Present. LAB L100.2620 2.0-7.7 X10 3/uL Normal Absolute Neut 2.2 LAB L100.2720 0.83-4.51 X10 3/ul Normal Absolute Lymph 1.68 LAB L100.4500 Normal SMEAR COMMENT SCANNED Performed By: #### L100.0100 #### [facility] [address] [place], [place], [address] COMPREHENSIVE METABOLIC Collected: 06/29/2017 Status: F Source: [facility] 6:00 AM [facility] REPOSITORY TYPE CODE TESTS RESULT OUT OF RANGE REFERENCE UNITS LAB L501.0100 70-110 mg/dL High GLU 121 Result Comment: Fasting Glucose result from 110 to <126 mg/dL suggests IMPAIRED HOMEOSTASIS per A.D.A. criteria. LAB L501.1000 7-18 mg/dL High BUN 19 LAB L501.1100 0.55-1.02 mg/dL Low CREAT,SERUM 0.40 Result Comment: The validity of the calculated GFR AND GFRAA in patients over 70 years has not been determined. Clinical correlation is essential. LAB L501.1110 >60 mL/min Normal EST GFR 169 Result Comment: Non- GFR Calc LAB L501.1115 >60 mL/min Normal EST GFR - AA 205 Result Comment: GFR Calc LAB L501.1255 ml/min Normal Estimated CRCL 49.12 LAB L501.1300 10-20 RATIO High BUN/CRE 47.6 LAB L501.1500 6.4-8. g/dL Normal 2 T PROT 6.4 LAB L501.1800 3.4-5. g/dL Low 0 ALB 2.5 Result Comment: Please note revised Albumin AND Globulin reference range effective 2017. LAB L501.1950 2.2-4.2 g/dL Normal GLOB 3.9 LAB L501.2000 0.9-2.4 RATIO Low A/G 0.6 LAB L501.2200 8.5-10.1 mg/dL Low CA 7.7 LAB L501.4100 15-37 U/L High AST 50 LAB L501.4305 45-117 U/L Normal ALK P 58 LAB L501.4405 12-78 U/L Normal ALT 31 LAB L501.4600 0.20-1.00 mg/dL Normal T BILI 0.30 LAB L501.5300 136-145 mmol/L Normal NA 138 LAB L501.5600 3.5-5.1 mmol/L Normal K 3.7 LAB L501.5900 98-107 mmol/L Normal CL 103 LAB L501.6100 21.0-32.0 mmol/L Normal CO2 26.0 LAB L501.6200 5-15 Normal GAP 9 Performed By: #### L500.4050 #### [facility] [address] [facility]. [place], [place], [address] HISTORY AND PHYSICAL Observed: 06/28/2017 Status: F Source: [place] EXAM 6:04 AM [facility] REPOSITORY [facility] Medical Records Department [address] [place] [address] History and Physical 06/28/17 0555 MR#: [id number] Acct: [id number] Name: XANDER RAMIREZ Rep #: [id number] : 1950 66 From: Saulo Pagan MD PCP: Patel Veliz MD, Chi Status: REG ER Y Location: ED Problem List (1) Acute exacerbation of chronic obstructive airways disease Status: Acute (2) Depression Status: Chronic (3) Insomnia Status: Chronic Comment: She takes Temazepam every night for sleep, prescribed by Dr. Veliz (4) Hypertension Status: Chronic (5) Physical debility Status: Chronic (6) Degenerative disc disease, lumbar Status: Chronic (7) Pain, chronic Status: Chronic (8) Seizure disorder Status: Chronic (9) Restless leg syndrome Status: Chronic (10) Obstructive sleep apnea Status: Chronic Comment: non-compliant with CPAP but has oxygen to wear at night (11) Smokes with greater than 40 pack year history Status: Chronic History of Present Illness Date of Admission: 06/28/17 Chief Complaint: shortness of breath The patient is a 66 year old female patient with a history of COPD presents to the ER with shortness of breath. She states she has been unable to smoke a cigarette for two days. This morning she was more acute and unable to get a deep breath in. Upon arrival to the ER she was restless and her respiratory rate was at 28 per minute. BIPAP was initiated and ABG done. She responded to this therapy. Chest films are negative for acute disease. The patient will need to be admitted for COPD exacerbation. She is requesting her methadone which she takes for spinal stenosis and seems very anxious about this. Past Medical History Past Medical History (Chronic Problems): Chronic Problems Depression (Chronic) Insomnia (Chronic) She takes Temazepam every night for sleep, prescribed by Dr. Veliz Hypertension (Chronic) Physical debility (Chronic) Degenerative disc disease, lumbar (Chronic) Pain, chronic (Chronic) Seizure disorder (Chronic) Restless leg syndrome (Chronic) COPD (chronic obstructive pulmonary disease) (Chronic) 1 ppd now smoker 4 ppd Obstructive sleep apnea (Chronic) non-compliant with CPAP but has oxygen to wear at night Smokes with greater than 40 pack year history (Chronic) Allergies Penicillins Allergy (Verified 06/28/17 02:38) Anaphylaxis codeine Adverse Reaction (Verified 06/28/17 02:38) Nausea Home Medications: Ambulatory Orders Medication Instructions Recorded Surgical History: appendectomy, cholecystectomy, - - Fractured right ankle, carpal tunnel surgery, removal of teeth, right ovariectomy and fallopian tube removal. Psychiatric History: Depression - untreated BACK SIZER History: No pertinent BACK SIZER history Smoking Status: Current every day smoker - *Family History Maternal History Items: No pertinent history Paternal History Items: No pertinent history Sibling History Items: No pertinent history Review of Systems Constitutional: Denies: Chills, Fever, Weight Change HEENT: Denies: Head Aches, Sinus Congestion, Sinus Drainage Cardiovascular: Denies: Chest Pain, Palpitations Respiratory: Reports: Cough, Shortness of breath at rest, Shortness of breath upon exertion, Wheezing. Denies: Sputum production Gastrointestinal: Denies: Abdominal Pain, Nausea, Vomiting Genitourinary: Denies: Dysuria Musculoskeletal: Reports: Back Pain. Denies: Joint Pain, Joint Tenderness Skin: Denies: Rash, Wounds Neurological: Denies: Numbness, Tingling, Focal weakness Psychiatric: Reports: Anxiety. Denies: Depression, Homicidal Ideations, Suicidal Ideations Hematologic/ Lymphatic: Denies: Easy Bruising, Easy Bleeding VTE Information - Inpt Only VTE Present on Admission: No VTE Mechan Device Prophylaxis: None VTE Pharm Prophylaxis ordered?: Yes - Physical Exam General: Alert, Oriented x3, Cooperative HEENT: Atraumatic, Normocephalic Neck: Supple Lungs: Diminished, Rhonchi, Short of Breath, Tachypneic, Wheezes Cardiovascular: Regular rate, Normal S1, Normal S2, No murmurs Abdomen: Bowel Sounds Present, Soft, Non Tender, Obese Extremities: No edema Skin: No rashes Musculoskeletal: No Tenderness to Palpation of Joints or Extremities Neurological: Neuro grossly intact Psych/Mental Status: Normal Affect, Appropriate Vital Signs Temp Pulse Resp BP Pulse Ox 100.5 F H 99 19 H 139/71 H 98 06/28/17 02:36 06/28/17 04:06 06/28/17 04:06 06/28/17 04:06 06/28/17 04:06 Oxygen Delivery Method Bi-pap Weight: 187 lb 2.759 oz Body Mass Index (BMI) 31.1 Laboratory Tests Past 24 Hrs WBC 5.4 RBC 4.52 Hgb 14.0 Hct 43.3 MCV 95.8 MCH 31.0 Assessment/Plan Chronic Problems Depression (Chronic) Insomnia (Chronic) She takes Temazepam every night for sleep, prescribed by Dr. Veliz Hypertension (Chronic) Physical debility (Chronic) Degenerative disc disease, lumbar (Chronic) Pain, chronic (Chronic) Seizure disorder (Chronic) Restless leg syndrome (Chronic) COPD (chronic obstructive pulmonary disease) (Chronic) 1 ppd now smoker 4 ppd Obstructive sleep apnea (Chronic) non-compliant with CPAP but has oxygen to wear at night Smokes with greater than 40 pack year history (Chronic) Assessment - COPD exacerbation Plan - admit to medical surgical floor - continue BIPAP - solumedrol 60mg IV q 6hrs - levaquin 500mg IV q day - Duoneb INH q 4hrs - continue routine home medications for stable conditions - LMWH for DVT prophylaxis - smoking cessation encouraged Code Visit Inpatient E AND M: [id number] Init Hosp L3 06/28/17 0604 <Electronically signed by Saulo Pagan MD> Date Saulo Pagan MD Cosign Signature: Date (if applicable) CC: Saulo Pagan MD; Patel Veliz MD Signed EMERGENCY DEPARTMENT Observed: 06/28/2017 Status: F Source: [place] SUMMARY 5:03 AM [facility] REPOSITORY [facility] Medical Records Department [address] [place] [address] Emergency Department Summary 06/28/17 0500 MR#: [id number] Acct: [id number] Name: XANDER RAMIREZ Rep #: [id number] : 1950 66 From: Cristofer Marmolejo MD PCP: Jose Alfredo LEACH,Patel Garvey Status: REG ER - ER Visit Summary Date of Service: 06/28/17 Chief Complaint: Shortness of breath History of Present Illness: The patient is a 66 F who presents with shortness of breath. History was somewhat limited as the patient presented in respiratory distress only able speak short sentences. She does have a history of COPD. She states that she has been ill with congestion rhinorrhea fevers and cough. She has had some nausea vomiting and diarrhea as well. She was recently seen in the emergency department. She had a negative flu swab. She states that she has been short of breath since yesterday but it acutely worsened this afternoon. She complains of chest tightness. Physical Examination: Initial blood pressure 157/138 temperature 100.5 heart rate 114 respiratory rate 41 pulse ox 92% Patient is written respiratory distress significantly tachypneic and only able speak in single word sentences she does have diffuse and story and expiratory wheezing and severely diminished air exchange Heart is regular rhythm tachycardia Abdomen soft nontender Alert No focal or lateralizing neurological deficits Test Results: EKG shows sinus rhythm at rate 106. CBC BMP troponin unremarkable. ABG shows pH 7.39 PCO2 48 PO2 116. Chest x-ray shows no acute process. Emergency Department Course and Treatment: Although the patient was maintaining a normal oxygen saturation she was in significant distress and was placed on BiPAP with significant improvement in work of breathing. She was treated with IV Solu-Medrol and IV Levaquin for COPD exacerbation. She was given Tylenol for fever. On reevaluation she is resting comfortably. We will try to wean her off BiPAP to Ventimask or nasal cannula. Patient to be discussed with hospitalist and admitted. Treatment Plan: [] Disposition: Admit Impression: COPD exacerbation This note was generated with [employer] dictation software. It may contain incorrect words, spelling, and punctuation that were not noted in review of the chart prior to signing ED Disposition - Plan for ED Patient: Chief Complaint: Shortness of Breath Referrals: Patel Veliz Chi, MD [Primary Care Provider] - What to do if you have Problems For any increased pain, shortness of breath, bleeding, nausea or vomiting, chest pain, or any unexpected problems, contact your Primary Care Provider. Call [facility] ([phone]) or report to the closest Emergency Room. Call 911 if necessary. 06/28/17 9986 <Electronically signed by Cristofer Marmolejo MD> Date Cristofer Marmolejo MD Cosigner Signature (If Indicated): Date CC: Patel Veliz MD BLOOD GASES BY CPS Collected: 06/28/2017 Status: F Source: [place] 3:04 AM [facility] REPOSITORY TYPE CODE TESTS RESULT OUT OF RANGE REFERENCE UNITS LAB L9000.9990 Normal BLD GAS TYPE ART LAB L9001.1000 Normal SITE L Radial LAB L9001.1010 Normal AISHA TEST POS LAB L9001.1050 O2 Normal Delivery Dev Vent Mask LAB L9001.1074 Normal FI02 50 LAB L9001.1104 Normal Results To ED LAB L9001.1105 Normal Time Given 300 LAB L9001.1110 7.35-7.45 pH Normal - I-STAT 7.39 LAB L9001.1210 35-45 mmHg High pCO2 - ISTAT 48.4 LAB L9001.1310 75-100 mmHG High PO2 I-STAT 116 LAB L9001.2300 22-26 mmol/L High HCO3 ISTAT 29.6 LAB L9001.2400 -2 to +2 mmol/L High BE ISTAT 5 LAB L9001.2415 mmol/L Normal TOTAL CO2 31 ISTAT LAB L9001.2425 95-99 % Normal SO2 ISTAT 98 Performed By: #### L9000.0800 #### [facility] Point of Care [address] [facility] [place] [address] CHEST 1 VIEW Observed: 06/28/2017 Status: F Source: [place] (PORTABLE) 2:50 AM [facility] REPOSITORY [facility] Imaging Services [address] [place] [address] Chest 1 View (Portable) MR#: [id number] Acct: [id number] Name: XANDER RAMIREZ Rep #: [id number] : 1950 F 66 From: Danilo Rodriguez PCP: Jose Alfredo LEACH,Patel Garvey Status: REG ER Study: Chest 1 View (Portable) Date of Exam: 06/28/17 Exam# [id number] Ordering Dr: Cristofer Marmolejo MD STUDY: X-RAY CHEST REASON FOR EXAM: Female, 66 years old. Shortness of breath. TECHNIQUE: AP portable chest. COMPARISON: 06/24/2017. FINDINGS: The lungs are clear and expanded. There is no demonstrated pleural abnormality. Normal size heart. Normal mediastinum and denae. Normal visualized pulmonary arteries. Normal visualized aortic arch and descending thoracic aorta. Osseous structures unchanged. There is no demonstrated abnormality of the visualized soft tissue structures of the upper abdomen. RAD/Chest 1 View (Portable) IMPRESSION: No acute cardiopulmonary disease. Electronically Signed: Danilo Rodriguez MD at 4:48 EST , Service support , CC: Cristofer Marmolejo MD; Patel Veliz MD Extraction Operator: Signed CBC W/DIFF, AUTOMATED Collected: 06/28/2017 Status: F Source: [place] 2:45 AM [facility] REPOSITORY TYPE CODE TESTS RESULT OUT OF RANGE REFERENCE UNITS LAB L100.1000 4.4-11.0 K/mm3 Normal WBC 5.4 LAB L100.1200 4.2-5.4 M/mm3 Normal RBC 4.52 LAB L100.1300 12.0-15.0 g/dl Normal HGB 14.0 LAB L100.1400 37-47 % Normal HCT 43.3 LAB L100.1500 81-99 fL Normal MCV 95.8 LAB L100.1600 27.0-32.0 pg Normal MCH 31.0 LAB L100.1700 32-36 g/gl Normal MCHC 32.3 LAB L100.1810 11.6-14.6 % Normal RDW CV 13.6 LAB L100.1820 35.1-43.9 fl High RDW SD 46.5 LAB L100.1900 150-450 K/mm3 Normal PLT 171 LAB L100.2000 6.2-12.0 fl Normal MPV 9.3 LAB L100.2100 47-70 % High NEUT% 71.2 LAB L100.2200 19-41 % Normal LY% 20.1 LAB L100.2300 0-10 % Normal MONO% 7.3 LAB L100.2400 0-5 % Normal EO% 0.4 LAB L100.2500 0-1 % Normal BASO% 0.6 LAB L100.2550 0.0-0.9 % Normal IM GRAN % 0.400 Result Comment: IG% - Immature Granulocytes (promyelocytes, myelocytes and metamyelocytes) > 1% indicates that a LEFT SHIFT is Present. LAB L100.2620 2.0-7.7 X10 3/uL Normal Absolute Neut 3.8 LAB L100.2720 0.83-4.51 X10 3/ul Normal Absolute Lymph 1.08 Performed By: #### L100.0100 #### [facility] [address] [place], [place], [address] BASIC METABOLIC Collected: 06/28/2017 Status: F Source: [place] PROFILE (BMP) 2:45 AM [facility] REPOSITORY Order Comment: 'TROP' Serial specimen #1, #2, #3, or #4: 1 TYPE CODE TESTS RESULT OUT OF RANGE REFERENCE UNITS LAB L501.0100 70-110 mg/dL High GLU 144 Result Comment: Fasting Glucose result greater than or equal to 126 mg/dL suggests DIABETES MELLITUS per A.D.A. criteria. LAB L501.1000 7-18 mg/dL Normal BUN 9 LAB L501.1100 0.55-1.02 mg/dL Low CREAT,SERUM 0.51 Result Comment: The validity of the calculated GFR AND GFRAA in patients over 70 years has not been determined. Clinical correlation is essential. LAB L501.1110 >60 mL/min Normal EST GFR 129 Result Comment: Non- GFR Calc LAB L501.1115 >60 mL/min Normal EST GFR - AA 156 Result Comment: GFR Calc LAB L501.1255 ml/min Normal Estimated CRCL 49.12 LAB L501.1300 10-20 RATIO Normal BUN/CRE 17.8 LAB L501.2200 8.5-10 mg/dL Low .1 CA 8.3 LAB L501.5300 136-14 mmol/L Normal 5 NA 141 LAB L501.5600 3.5-5. mmol/L Normal 1 K 3.7 LAB L501.5900 98-107 mmol/L Normal CL 101 LAB L501.6100 21.0-3 mmol/L Normal 2.0 CO2 31.0 LAB L501.6200 5-15 Normal GAP 9 Performed By: #### L500.2500, L501.4010 #### [facility] [address] [place], [address] TROPONIN-I Collected: 06/28/2017 Status: F Source: [place] 2:45 AM [facility] REPOSITORY Order Comment: 'TROP' Serial specimen #1, #2, #3, or #4: 1 TYPE CODE TESTS RESULT OUT OF RANGE REFERENCE UNITS LAB L501.4010 <0.06 ng/mL Normal < 0.02 TROPONIN-I Result Comment: TROPONIN-I EXPECTED VALUES <0.05 NEGATIVE 0.06 - 0.59 AT RISK OF DE > OR = 0.60 SUGGEST DE Performed By: #### L500.2500, L501.4010 #### [facility] [address] [place], [address] EMERGENCY DEPARTMENT Observed: 06/27/2017 Status: F Source: [place] SUMMARY 9:58 AM [facility] REPOSITORY [facility] Medical Records Department [address] [place] [place] [address] Emergency Department Summary 06/24/17 1644 MR#: [id number] Acct: [id number] Name: XANDER RAMIREZ Rep #: [id number] : 1950 66 From: Eva Simeon DO PCP: Patel Veliz MD, Chi Status: DEP ER - ER Visit Summary Date of Service: 06/24/17 Chief Complaint: [Cough and fever] History of Present Illness: The patient is a 66 F [resents the emergency department chief complaint of symptoms that started yesterday. Patient describes body aches, dry cough, headache and sore throat. Patient states that incidentally she had diarrhea 5 days ago but that only lasted a day. Patient denies any sick contacts. Patient presents via EMS today. Patient does have a history of COPD, sleep apnea, and epilepsy.] Physical Examination: [HEENT-PERRLA, EOMI. Cranial nerves II through XII grossly intact. TMs clear. Mucous membranes moist. No adenopathy. Cardiovascular-regular rate and rhythm without murmur or ectopy Lungs-clear to auscultation, chest wall stable without crepitus or subcu emphysema Abdomen-normoactive bowel sounds, soft, nontender, no rebound or rigidity, no peritoneal signs. Extremities-intact 4, normal range of motion, normal pulses, atraumatic] Test Results: [Chest x-ray showed nothing acute. Influenza screen was negative.] Emergency Department Course and Treatment: [Patient received a DuoNeb aerosol here and did feel improved. She had diminished wheezing afterwards. Patient also was given a dose of prednisone p.o. I believe patient still likely has influenza based on her symptomatology therefore will go ahead and start her on Tamiflu as she still within the window treatment.] Treatment Plan: [She will be started on Tamiflu, prednisone, and advised to follow-up with primary care physician within next 3-5 days.] Disposition: [Discharged home in stable condition] Impression: [Asthmatic bronchitis-suspect influenza related] This note was generated with [employer] dictation software. It may contain incorrect words, spelling, and punctuation that were not noted in review of the chart prior to signing ED Disposition - Plan for ED Patient: Chief Complaint: Cough Referrals: Patel Veliz Chi, MD [Primary Care Provider] - What to do if you have Problems For any increased pain, shortness of breath, bleeding, nausea or vomiting, chest pain, or any unexpected problems, contact your Primary Care Provider. Call [facility] ([phone]) or report to the closest Emergency Room. Call 911 if necessary. 06/27/17 0958 <Electronically signed by Eva Simeon DO> Date Eva Simeon DO Cosigner Signature (If Indicated): Date CC: Patel Veliz MD DISCHARGE INSTRUCTION Observed: 06/24/2017 Status: F Source: [place] 5:25 PM [facility] REPOSITORY [facility] Medical Records Department [address] [place] [address] Discharge Instruction 06/24/17 172 MR#: [id number] Acct: [id number] Name: XANDER RAMIREZ Rep #: [id number] : 1950 66 From: Eva Simeon DO PCP: Jose Alfredo LEACH,Patel Garvey Status: REG ER ED Disposition - Plan for ED Patient: Chief Complaint: Cough Instructions: ED Bronchitis Asthmatic Prescriptions: Benzonatate [Tessalon Perle] 100 mg PO 4X/DAY PRN PRN #30 cap PRN Reason: Cough Oseltamivir Phosphate [Tamiflu] 75 mg PO BID #9 cap Prednisone [Deltasone] 20 mg PO BID #10 tab Referrals: Patel Veliz Chi, MD [Primary Care Provider] - 3-5 Days What to do if you have Problems For any increased pain, shortness of breath, bleeding, nausea or vomiting, chest pain, or any unexpected problems, contact your Primary Care Provider. Call [facility] ([phone]) or report to the closest Emergency Room. Call 911 if necessary. 06/24/171724 <Electronically signed by Eva Simeon DO> Date Eva Simeon DO Cosigner Signature (If Indicated): Date CC: Patel Veliz MD Observed: 06/24/2017 Status: F Source: [place] INFLUENZA A+B (RAPID 4:10 PM [facility]) REPOSITORY FLU A/B Rapid Negative test results should be confirmed by culture. Order Rapid Viral Culture for Influenzae A+B ([id number]) if clinically indicated. Influenza Ag, Direct Presumptive NEGATIVE for Influenza A/B Antigen (See Note) Performed By: #### M101.0101 #### [facility] [address] [place], [address] CHEST PA AND LATERAL Observed: 06/24/2017 Status: F Source: [place] 3:19 PM [facility] REPOSITORY [facility] Imaging Services [address] [place] [address] Chest PA and Lateral MR#: [id number] Acct: [id number] Name: XANDER RAMIREZ Rep #: [id number] : 1950 F 66 From: Micha Pedraza MD PCP: Patel Veliz MD, Chi Status: REG ER Study: Chest PA and Lateral Date of Exam: 06/24/17 Exam# [id number] Ordering Dr: Eva Simeon DO STUDY: X-RAY CHEST REASON FOR EXAM: Female, 66 years old. Cough, flulike symptoms TECHNIQUE: PA and lateral views of the chest. COMPARISON: Previous study of June 21, 2016 FINDINGS: The lungs are clear and expanded. There is no demonstrated pleural abnormality. Normal size heart. Normal mediastinum and denae. Normal visualized pulmonary arteries. Normal visualized aortic arch and descending thoracic aorta. There are mild degenerative changes of the thoracic spine. Normal visualized ribs, clavicles, and shoulders. There is no demonstrated abnormality of the visualized soft tissue structures of the upper abdomen. RAD/Chest PA and Lateral IMPRESSION: Mild degenerative changes of the thoracic spine. No acute cardiopulmonary disease process is seen. Chest findings are stable in the interval. Electronically Signed: Micha Pedraza MD at 16:53 EST , Service support , CC: Eva Simeon DO; Patel Veliz MD Extraction Operator: Signed URINE DRUG SCREEN Collected: 06/09/2017 Status: F Source: [place] (VISTA) 3:45 PM [facility] REPOSITORY Order Comment: List of Drugs Taken or Suspected? UNK TYPE CODE TESTS RESULT OUT OF RANGE REFERENCE UNITS LAB L505.0075 TO BE Normal CONFIRMED Result Comment: CONFIRMATORY TESTING FOR ALL POSITIVE URINE DRUG SCREEN RESULTS WILL ONLY BE SENT OUT UPON PHYSICIAN ORDER. VISTA Urine Drug Screen methods provide only preliminary analytical test results. A more specific alternate chemical method must be used in order to obtain a confirmed analytical result. Gas chromatography/mass spectrometery (GC/MS) is the preferred confirmatory method. Clinical consideration and professional judgement should be applied to any drug of abuse test result, particularly when preliminary positive results are used. URINE TCA TESTING MUST BE ORDERED SEPARATELY. USE TEST MNEMONIC: [facility] LAB L505.5005 VISTA UDS PH 5 Normal LAB L505.5015 <1000 ng/mL AMPHETAMINES Normal NEGATIVE LAB L505.5025 < 200 High ng/mL BARBITIURATES POSITIVE LAB L505.5035 < 200 ng/mL BENZODIAZIPINE Normal NEGATIVE LAB L505.5045 < 300 ng/mL COCAINE Normal NEGATIVE LAB L505.5055 < 500 ng/mL ECSTACY Normal NEGATIVE LAB L505.5065 < 300 High ng/mL METHADONE POSITIVE LAB L505.5075 < 300 ng/mL OPIATES Normal NEGATIVE LAB L505.5085 < 25 ng/mL PCP Normal NEGATIVE LAB L505.5095 < 50 ng/mL THC Normal NEGATIVE Performed By: #### L505.5000 #### [facility] [address] [place], [address] MISCELLANEOUS LAB Collected: 06/09/2017 Status: F Source: [place] PROCEDURE 2 3:45 PM [facility] REPOSITORY Order Comment: List Test(s) Ordered by Physician: [id number] METHADONE TYPE CODE TESTS RESULT OUT OF RANGE REFERENCE UNITS LAB L801.1543 Normal [facility] TEST 2 Result Comment: TEST RESULT LIMITS Methadone Screen, Urine Methadone Screen, Urine Positive ng/mL [id number] Please Note: This assay provides a preliminary unconfirmed analytical test result that may be suitable for clinical management of patients in certain situations. Drug-test results should be interpreted in the context of clinical information. Patient metabolic variables, specific drug chemistry, and specimen characteristics can affect test outcome. Technical consultation is available if a test result is inconsistent with an expected outcome. (email-[email or web address] or call toll-free [phone]) TESTING PERFORMED AT [facility]. ORIGINAL REPORT ON FILE IN LAB CONTAINS ADDITIONAL TEST SITE INFORMATION. Performed By: #### L801.1543 #### [facility] [address] [place], [address] MISCELLANEOUS LAB Collected: 06/09/2017 Status: F Source: [place] PROCEDURE 3:45 PM [facility] REPOSITORY Order Comment: Test(s) Ordered: [id number] TYPE CODE TESTS RESULT OUT OF RANGE REFERENCE UNITS LAB L801.1541 Normal [facility] LAB TEST Result Comment: [id number] 6+OXYCODONE-BUND (ng/mL) DRUG RESULT SCREEN CUTOFF ____ Amphetamines,Urine Negative ng/mL 1000 Amphetamine test includes Amphetamine and Methamphetamine. Barbiturates POSITIVE ng/mL 200 Amobarbital Negative 200 Secobarbital Negative 200 Butalbital Negative 200 Pentobarbital Positive Phenobarbital GC/MS Conf 03414 ng/mL 200 Benzodiazepines POSITIVE ng/mL 100 Please Note; Confirmation performed by Mass Spectrometry Nordiazepam Negative 100 Oxazepam Positive Oxazepam Confirm 744 ng/mL 100 Flurazepam Negative 100 Lorazepam Negative 100 Alprazolam Negative 100 Clonazepam Negative 100 Temazepam Positive Temazepam Confirm 9302 ng/mL 100 Triazolam Negative Midazolam Negative Cannabinoid Negative ng/mL 20 Cocaine (Metab) Negative ng/mL 300 Opiates Negative ng/mL 300 Opiates test includes Codeine, Morphine, Hydromorphone, Hydrocodone. Oxycodone/Oxymorphone,Urine Negative ng/mL 300 Test includes Oxydodone and Oxymorphone. TESTING PERFORMED AT [facility]. ORIGINAL REPORT ON FILE IN LAB CONTAINS ADDITIONAL TEST SITE INFORMATION. Performed By: #### L801.1541 #### [facility] [address] [place], [address] ALLERGIES ALLERGIES DATE TYPE / CODE NAME / CODE REACTION SEVERITY SOURCE 03/19/2018 Drug Penicillins Anaphylaxis [facility] Allergy/4160 /[id number] Hospital 66386(SNOMED (RXNORM) Repository CT) 03/19/2018 Drug codeine/F00 Nausea Unknown [facility] Allergy/4160 4152992(RXN Hospital 96143(SNOMED ORM) Repository CT) ENCOUNTERS ENCOUNTERS ADMIT/DISCHARGE ACCOUNT ADMITTING ENCOUNTER LOCATION SOURCE NUMBER CLASS 06/01/2018 [id number] [place] [facility] ing:LAB Repository 05/19/2018 [id number] Amb[place] [facility] ing:RAD Repository 04/26/2018 [id number] Ambulatory [place] 1 [facility] ing:MRI Repository 04/02/2018/ [id number] Emergency [place] 2 [facility] ing:ED Repository 03/29/2018/ [id number] Emergency [place] 8 [facility] ing:ED Repository 03/19/2018/ [id number] WhiteArielle Inpatient [place] 2 Encounter [facility] ing:CM9Shsr: Repository [id number]: 1 03/19/2018 [id number] WhiteArielle Ambulatory [facility] [place] Repository 03/19/2018 [id number] Arielle Hensley Ambulatory BMSBuilding:B [place]Critical access hospital Repository 03/19/2018 [id number] Arielle Hensley Ambulatory [facility]:B [place] [facility].Critical access hospital Repository 03/19/2018 [id number] White, Arielle Ambulatory B[facility]:B [place] [facility]Critical [facility] Repository 03/14/2018 [id number] Ambulatory [place] 5 [facility] ing:POLAB3 Repository 03/05/2018/ [id number] White, Arielle Inpatient [place] 1 Encounter [facility] ing:PCURoom: Repository [id number]: 1 03/05/2018 [id number] White, Arielle Ambulatory BMS[facility]:B [place] 6 [facility]Critical [facility] Repository 03/05/2018 [id number] White, Arielle Ambulatory [facility]:B [place] 2 [place]Critical [facility] Repository 03/05/2018 [id number] White, Arielle Ambulatory [facility]:B [place] 1 [place]Critical [facility] Repository 03/05/2018/ [id number] Ambulatory B[facility]:W [place] 9 [facility] Repository 03/05/2018 [id number] Ambulatory [facility]:W [place] 6 [facility] Repository 03/05/2018 [id number] Ambulatory [facility]:W [place] 7 [facility] Repository 02/24/2018/ [id number] Emergency [place] 3 [facility] ing:ED Repository 02/17/2018 [id number] Ambulatory B[facility]:B [place] 3 [facility] Repository 02/07/2018/ [id number] Ambulatory BMSBuilding:B [place] 9 [facility] Repository 02/01/2018/ [id number] Emergency [place] 9 [facility] ing:ED Repository 01/30/2018/ [id number] Emergency [place] 8 [facility] ing:ED Repository 12/22/2017/ [id number] Emergency [place] 7 [facility] ing:ED Repository 12/20/2017/ [id number] Emergency [place] 7 [facility] ing:ED Repository 12/20/2017/ [id number] Emergency [place] 8 [facility] ing:ED Repository 12/04/2017/ [id number] Emergency [place] 2 [facility] ing:ED Repository 12/02/2017/ [id number] Emergency [place] 9 [facility] ing:ED Repository 11/07/2017/ [id number] Arielle Hensley Inpatient [place] 8 Encounter [facility] ing:LT2Attn: Repository [id number]: 1 11/07/2017 [id number] Arielle Hensley Ambulatory BMS[facility]:B [place] [facility] Repository 11/07/2017 [id number] Arielle Hensley Ambulatory BMS[facility]:B [place] 4 [facility].Critical [facility] hospital Repository 11/03/2017 [id number] Ambulatory [place] 9 [facility] ing:LAB Repository 09/05/2017/ [id number] Emergency [place] 9 [facility] ing:ED Repository 09/05/2017/ [id number] Emergency [place] 6 [facility] ing:ED Repository 09/04/2017/ [id number] Emergency [place] 9 [facility] ing:ED Repository 08/22/2017 [id number] Ambulatory [place] 3 [facility] ing:POLAB3 Repository 07/03/2017/ [id number] Tereletsky, Inpatient [place] 6 [place] Encounter [facility] ing:PCURoom: Repository [id number]: 1 07/03/2017 [id number] Oliveeletsky, Ambulatory BMSBuilding:B [place] 2 [place].Critical [facility] hospital Repository 07/03/2017 [id number] Oliveeletsky, Ambulatory BMSBuilding:W [place] 0 [place] [facility] Repository 07/03/2017 [id number] Oliveeletsky, Ambulatory BMSBuilding:B [place] 3 [place] [facility].Critical access hospital Repository 07/03/2017 [id number] Tereletsky, Ambulatory BMSBuilding:B [place] 6 [place].Critical [facility] hospital Repository 07/03/2017 [id number] Tereletsky, Ambulatory BMSBuilding:W [place] 2 [place] [facility] Repository 07/03/2017 [id number] Tereletsky, Ambulatory BMSBuilding:W [place] 9 [place] [facility] Repository 07/03/2017 [id number] Tereletsky, Ambulatory BMSBuilding:B [place] 7 [place].Critical access hospital Repository 07/03/2017 [id number] Tereletsky, Ambulatory BMSBuilding:W [place] 7 [place] [facility] Repository 07/03/2017 [id number] Tereletsky, Ambulatory BMSBuilding:B [place] 0 [place] [facility].Critical access hospital Repository 07/03/2017/ [id number] Ambulatory BMS[facility]:W [place] 8 2 [facility] Repository 06/29/2017/ [id number] Ambulatory BMS[facility]:W [place] 2 [facility] Repository 06/28/2017/ [id number] Saulo Pagan Inpatient [place] 5 [facility] Hospital ing:PCURoom: Repository [id number]: 1 06/28/2017 [id number] Ambulatory [facility]:B [place] 5 [facility]Critical access hospital Repository 06/28/2017 [id number] Ambulatory [facility]:W [place] 9 [facility] Repository 06/28/2017 [id number] Saulo Pagan Ambulatory BMSBuilding:B [place] 6 [place].Critical access hospital Repository 06/28/2017 [id number] Saulo Pagan Ambulatory [facility]MSBuilding:W [place] 2 [facility] Repository 06/28/2017 [id number] Saulo Pagan Ambulatory BMSBuilding:B [place] 9 [facility].Critical access hospital Repository 06/28/2017 [id number] Saulo Pagan Ambulatory B[facility]Building:W [place] 6 [facility] Repository 06/28/2017 [id number] Saulo Pagan Ambulatory BMSBuilding:W [place] 0 [facility] Repository 06/28/2017 [id number] Saulo Pagan Ambulatory B[facility]Building:B [place] 7 [facility].Critical access hospital Repository 06/28/2017 [id number] Ambulatory BMS[facility]:B [place] 1 [facility].Critical access hospital Repository 06/24/2017/ [id number] Emergency [place] 5 [facility] ing:ED Repository 06/09/2017 [id number] Ambulatory [place] 3 [facility] ing:LAB Repository PAYERS PAYERS ENCOUNTER GUARANTOR PAYER SUBSCRIBER SOURCE 06/01/2018 XANDER Hernandez Primary XANDER Hernandez [place] [id number] E Insurance:MYCARE CRSC MILLERDOB: [place] [address] [place] Number: Repository [address]Wif: 330 [id number] [phone] (HP) Date:0073-16-57BTFB [address]S [address] [address]XT: 06/01/2018 Secondary NOT GIVENUNK [place] Insurance:SELF PAY [facility] Number: Effective Repository Date:2018-06-01 05/19/2018 XANDER Hernandez Primary XANDER Hernandez [place] [id number] E Insurance:MYCARE CRSC MILLERDOB: Community [place] [address], [place] Number: Repository [address]Uzg: 330 [id number] [phone] (HP) Date:6469-13-71XOYY [address]S [address] [address]RO: 05/19/2018 Secondary NOT GIVENUNK [place] Insurance:SELF PAY [facility] Number: Effective Repository Date:2018-05-19 04/26/2018 XANDER Hernandez Primary XANDER Hernandez [place] [id number] E Insurance:MYCARE CRSC MILLERDOB: Community [place] [address], [place] Number: Repository [address]Vte: 330 [id number] [phone] (HP) Date:4860-49-27BPVQ [address]S [address] [address]OC: 04/26/2018 Secondary NOT GIVENUNK [place] Insurance:SELF PAY [facility] Effective Repository Date:2018-04-10 04/02/2018 XANDER Hernandez Primary XANDER Hernandez [place] [id number] E Insurance:MYCARE CRSC MILLERDOB: [place] *[place] [facility] [id number], [place] Number: Repository [address]Kza: 330 [id number] [phone] (HP) Date:4978-46-66NYBI CLAIMS [address] [address]WV: 04/02/2018 Secondary NOT GIVENUNK [place] Insurance:SELF PAY [facility] Number: Effective Repository Date:2018-04-02 03/29/2018 XANDER Hernandez Primary XANDER Hernandez [place] [id number] E Insurance:MYCARE CRSC MILLERDOB: [place] [facility] [id number], [place] Number: Repository [address]Twx: 330 [id number] [phone] () Date:[id number] CLAIMS [address] [place] [address]PS: 03/29/2018 Secondary NOT GIVENUNK [place] Insurance:SELF PAY [facility] Number: Effective Repository Date:2018-03-29 03/19/2018 XANDER Hernandez Primary XANDER Hernandez [place] [id number] E Insurance:MYCARE CRSC MILLERDOB: Community [place] [facility] [id number], [place] Number: Repository [id number]: 330 [id number] [phone] (HP) Date:3805-32-02NDAI [address]S [address] [address]PQ: 03/19/2018 Secondary NOT GIVENUNK [place] Insurance:SELF PAY [facility] Number: Effective Repository Date:2018-03-19 03/19/2018 XANDER Hernandez Primary XANDER Hernandez [place] [id number] E Insurance:MYCARE CRSC MILLERDOB: Community [place] [facility] [id number], [place] Number: Repository [address]Tms: 330 [id number] [phone] () Date:[id number] CLAIMS [address], [place] [address]SL: 03/19/2018 Secondary NOT GIVENUNK [place] Insurance:SELF PAY [facility] Number: Effective Repository Date:2018-03-19 03/19/2018 XANDER Hernandez Primary XANDER Hernandez [place] [id number] E Insurance:MYCARE CRSC MILLERDOB: Community [place] [facility] [id number], [place] Number: Repository [address]Mes: 330 [id number] [phone] () Date:3350-13-01JILT [address]S [address] [address]CX: 03/19/2018 Secondary NOT GIVENUNK [place] Insurance:SELF PAY [facility] Number: Effective Repository Date:2018-03-19 03/19/2018 XANDER Hernandez Primary XANDER Hernandez [place] [id number] E Insurance:MYCARE CRSC MILLERDOB: Community [place] [facility] [id number], [place] Number: Repository [address]Npm: 330 [id number] [phone] () Date:[id number] [address]S [address], [place] [address]WV: 03/19/2018 Secondary NOT GIVENUNK [place] Insurance:SELF PAY [facility] Number: Effective Repository Date:2018-03-19 03/19/2018 XANDER Hernandez Primary XANDER Hernandez [place] [id number] E Insurance:MYCARE CRSC MILLERDOB: Community [place] [facility] [id number], [place] Number: Repository [address]Wnr: 330 [id number] [phone] (HP) Date:3472-71-55OHRE [place] [address] [address]VA: 03/19/2018 Secondary NOT GIVENUNK [place] Insurance:SELF PAY [facility] Number: Effective Repository Date:2018-03-19 03/14/2018 XANDER Hernandez Primary XANDER Hernandez [place] [id number] E Insurance:MYCARE CRSC MILLERDOB: Community [address] *IN [facility] [id number], [place] Number: Repository [address]Gnv: 330 [id number] [phone]) Date:4459-77-31ZRYE [place]S [address] [address]SF: 03/14/2018 Secondary NOT GIVENUNK [place] Insurance:SELF PAY [facility] Number: Effective Repository Date:2018-03-14 03/05/2018 XANDER Hernandez Primary XANDER Hernandez [place] [id number] E Insurance:MYCARE CRSC MILLERDOB: Community [address] *IN [facility] [id number], [place] Number: Repository [address]Zhp: 330 [id number] [phone] Date:4495-23-33LGZR [place]S [address] [address]QA: 03/05/2018 Secondary NOT GIVENUNK [place] Insurance:SELF PAY [facility] Number: Effective Repository Date:2018-03-05 03/05/2018 XANDER Hernandez Primary XANDER Hernandez [place] [id number] E Insurance:MYCARE CRSC MILLERDOB: Community [address] *IN [facility] [id number], [place] Number: Repository [address]Ohc: (330 [id number] [phone] Date:7147-59-23TDBX [place]S [address] [address]RT: 03/05/2018 Secondary NOT GIVENUNK [place] Insurance:SELF PAY [facility] Number: Effective Repository Date:2018-03-05 03/05/2018 XANDER Hernandez Primary XANDER Hernandez [place] [id number] E Insurance:MYCARE CRSC MILLERDOB: Community [address] *IN [facility] [id number], [place] Number: Repository [address]Cvv: 330 [id number] [phone]) Date:6816-25-38FFNG [address]S [address] [address]ZE: 03/05/2018 Secondary NOT GIVENUNK [place] Insurance:SELF PAY [facility] Number: Effective Repository Date:2018-03-05 03/05/2018 XANDER Hernandez Primary XANDER Hernandez [place] [id number] E Insurance:MYCARE CRSC MILLERDOB: Community [address] *IN [facility] [id number], [place] Number: Repository [address]Vfx: 330 [id number] [phone] Date:5873-60-89MRYY [place]S [address] [address]FD: 03/05/2018 Secondary NOT GIVENUNK [place] Insurance:SELF PAY [facility] Number: Effective Repository Date:2018-03-05 03/05/2018 XANDER Hernandez Primary XANDER Hernandez [place] [id number] E Insurance:MYCARE CRSC MILLERDOB: Community [address] *IN [facility] [id number], [place] Number: Repository [address]Tvy: 330 [id number] [phone] (HP) Date:0753-85-60BHQJ [address] [address]EK: 03/05/2018 Secondary NOT GIVENUNK [place] Insurance:SELF PAY [facility] Number: Effective Repository Date:2018-03-05 03/05/2018 XANDER Hernandez Primary XANDER Hernandez [place] [id number] E Insurance:MYCARE CRSC MILLERDOB: Community [address] *IN [facility] [id number], [place] Number: Repository [address]Ahh: 330 [id number] [phone]) Date:9146-14-93WLIY [address]S [address] [address]DW: 03/05/2018 Secondary NOT GIVENUNK [place] Insurance:SELF PAY [facility] Number: Effective Repository Date:2018-03-05 03/05/2018 XANDER Hernandez Primary XANDER Hernandez [place] [id number] E Insurance:MYCARE CRSC MILLERDOB: Community [address] *IN [facility] [id number], [place] Number: Repository [address]Kad: 330 [id number] [phone] (HP) Date:2841-43-24SOHV CLAIMS [address] [address]CS: 03/05/2018 Secondary NOT GIVENUNK [place] Insurance:SELF PAY [facility] Number: Effective Repository Date:2018-03-05 02/24/2018 XANDER Hernandez Primary XANDER Hernandez [place] [id number] E Insurance:MYCARE CRSC MILLERDOB: Community [address] *IN [facility] [id number], [place] Number: Repository [address]Frs: 330 [id number] [phone]) Date:4576-45-95YCVI [address]S [address] [address]VD: 02/24/2018 Secondary NOT GIVENUNK [place] Insurance:SELF PAY [facility] Number: Effective Repository Date:2018-02-24 02/17/2018 XANDER Hernandez Primary XANDER Hernandez [place] [id number] E Insurance:MYCARE CRSC MILLERDOB: Community [address] *IN [facility] [id number], [place] Number: Repository [address]Qzf: 330 [id number] [phone]) Date:5487-61-29GGRR [address]S [address] [address]UH: 02/17/2018 Secondary NOT GIVENUNK [place] Insurance:SELF PAY [facility]: Effective Repository Date:2018-02-16 02/07/2018 XANDER Hernandez Primary XANDER Hernandez [place] [id number] E Insurance:MYCARE CRSC MILLERDOB: [place] [address] *IN [address], [place] Number: Repository [address]Efs: 330 [id number] [phone] () Date:6460-30-53RJQZ CLAIMS [address] [address]TQ: 02/07/2018 Secondary NOT GIVENUNK [place] Insurance:SELF PAY [facility] Number: Effective Repository Date:2018-02-07 02/01/2018 Xander Hernandez Primary Xander Hernandez [place] [id number] E Insurance:MYCARE CRSC MillerDOB: Community [address] *IN [address], [place] Number: Repository [address]Knk: 330 [id number] [phone] () Date:0726-68-15WNVT CLAIMS [address], [place] [address]ZG: 02/01/2018 Secondary NOT GIVENUNK [place] Insurance:SELF PAY [facility] Number: Effective Repository Date:2018-02-01 01/30/2018 Xander Hernandez Primary Xander Hernandez [place] [id number] E Insurance:MYCARE CRSC MillerDOB: Community [address] *[place] [address], [place] Number: Repository [address]Rcm: 330 [id number] [phone] () Date:8309-86-35RSWM CLAIMS [address] [address]XZ: 01/30/2018 Secondary NOT GIVENUNK [place] Insurance:SELF PAY [facility] Number: Effective Repository Date:2018-01-30 12/22/2017 Xander Hernandez Primary Xander Hernandez [place] [id number] E Insurance:MYCARE CRSC MillerDOB: Community [address] *IN [facility] [id number], [place] Number: Repository [address]Sdp: 330 [id number] [phone] () Date:6396-20-29SOQI CLAIMS [address] [address]GZ: 12/22/2017 Secondary NOT GIVENUNK [place] Insurance:SELF PAY [facility] Number: Effective Repository Date:2017-12-22 12/20/2017 Xander Hernandez Primary Xander Hernandez [place] [id number] E Insurance:MYCARE CRSC MillerDOB: Community [address] *IN [address], [place] Number: Repository [address]Tvy: 330 [id number] [phone] () Date:4992-56-58ZBXS CLAIMS [address] [place] [address]SZ: 12/20/2017 Secondary NOT GIVENUNK [place] Insurance:SELF PAY [facility] Number: Effective Repository Date:2017-12-20 12/20/2017 Xander Hernandez Primary Xander Hernandez [place] [id number] E Insurance:MYCARE CRSC MillerDOB: Community [address] *IN [address], [place] Number: Repository [address]Sdv: 330 [id number] [phone] () Date:1100-20-95MJGX CLAIMS [address], [place] [address]OA: 12/20/2017 Secondary NOT GIVENUNK [place] Insurance:SELF PAY [facility] Number: Effective Repository Date:2017-12-20 12/04/2017 Xander Hernandez Primary Xander Hernandez [place] [id number] E Insurance:MYCARE CRSC MillerDOB: Community [address] *IN [address] Number: Repository [address]Wch: [id number] [phone] Date:1871-13-54PKZE -9 (HP) [address]S [address] [address]VX: 12/04/2017 Secondary NOT GIVENUNK [place] Insurance:SELF PAY [facility] Number: Effective Repository Date:2017-12-04 12/02/2017 Xander Hernandez Primary Xander Hernandez [place] [id number] E Insurance:MYCARE CRSC MillerDOB: Community [address] *IN [facility] [id number], [place] Number: Repository [address]Jgd: [id number] [phone] Date:1450-67-77GMJK -9 (HP) [address] [address]SU: 12/02/2017 Secondary NOT GIVENUNK [place] Insurance:SELF PAY [facility] Number: Effective Repository Date:2017-12-02 11/07/2017 Xander Hernandez Primary Xander Hernandez [place] [id number] E Insurance:MYCARE CRSC MillerDOB: Community [address] *IN [facility] [id number], [place] Number: Repository [address]Yvj: [id number] [phone] Date:5218-04-43AGAV -9 (HP) [address] [address]PC: 11/07/2017 Secondary NOT GIVENUNK [place] Insurance:SELF PAY [facility] Number: Effective Repository Date:2017-11-07 11/07/2017 Xander Hernandez Primary Xander Hernandez [place] [id number] E Insurance:MYCARE CRSC MillerDOB: Community [address] *IN [facility] [id number], [place] Number: Repository [address]Fxu: [id number] [phone] Date:2757-71-76AUCJ -9 (HP) [address]S [address] [address]BO: 11/07/2017 Secondary NOT GIVENUNK [place] Insurance:SELF PAY [facility]: Effective Repository Date:2017-11-07 11/07/2017 Xander Hernandez Primary Xander Hernandez [place] [id number] E Insurance:MYCARE CRSC MillerDOB: Community [address] *IN [facility] [id number], [place] Number: Repository [address]Mef: [id number] [phone] Date:8853-56-11LXXX -9 (HP) CLAIMS [address] [address]CN: 11/07/2017 Secondary NOT GIVENUNK [place] Insurance:SELF PAY [facility] Number: Effective Repository Date:2017-11-07 11/03/2017 Xander Hernandez Primary Xander Hernandez [place] [id number] E Insurance:MYCARE CRSC MillerDOB: [place] [address] [address] *[place] [address] Number: Repository [address]Irc: [id number] [phone] Date:8746-40-97RGHU -9 (HP) CLAIMS [address] [address]AB: 11/03/2017 Secondary NOT GIVENUNK [place] Insurance:SELF PAY [facility] Number: Effective Repository Date:2017-11-03 09/05/2017 Xander Hernandez Primary Xander Hernandez [place] [id number] E Insurance:MYCARE CRSC MillerDOB: Community [address] [address] *IN [facility] [id number], [place] Number: Repository [address]Plb: [id number] [phone] Date:7671-87-49XJPB -9 (HP) [address] [address]HS: 09/05/2017 Secondary NOT GIVENUNK [place] Insurance:SELF PAY [facility] Number: Effective Repository Date:2017-09-05 09/05/2017 Xander Hernandez Primary Xander Hernandez [place] [id number] E Insurance:MYCARE CRSC MillerDOB: Community [place] [address] *IN [facility] [id number], [place] Number: Repository [address]Cug: [id number] [phone] Date:1746-79-04QHBY -9 (HP) [address] [address]MX: 09/05/2017 Secondary NOT GIVENUNK [place] Insurance:SELF PAY [facility] Number: Effective Repository Date:2017-09-05 09/04/2017 Xander Hernandez Primary Xander Hernandez [place] [id number] E Insurance:MYCARE CRSC MillerDOB: Community [address] [address] *[place] [address], [place] Number: Repository [address]Bwn: [id number] [phone] Date:3047-62-74TAFR -9 () CLAIMS [address] [address]QI: 09/04/2017 Secondary NOT GIVENUNK [place] Insurance:SELF PAY [facility] Number: Effective Repository Date:2017-09-04 08/22/2017 Xander Hernandez Primary Xander Hernandez [place] [id number] E Insurance:MYCARE CRSC MillerDOB: [place] [address] *[place] [address], [place] Number: Repository [address]Eza: [id number] [phone] Date:6501-40-90HURS -9 () [address]S [address] [address]UK: 08/22/2017 Secondary NOT GIVENUNK [place] Insurance:SELF PAY [facility] Number: Effective Repository Date:2017-08-22 07/03/2017 Xander Hernandez Primary Xander Hernandez [place] [id number] E Insurance:MYCARE CRSC MillerDOB: Community [place] *[place] [address], [place] Number: Repository [address]Qmt: [id number] [phone] Date:7386-16-88HOAP -9 (HP) [address]S [address] [address]JZ: 07/03/2017 Secondary NOT GIVENUNK [place] Insurance:SELF PAY [facility] Number: Effective Repository Date:2017-07-03 07/03/2017 Xander Hernandez Primary Xander Hernandez [place] [id number] E Insurance:MYCARE CRSC MillerDOB: Community [place] [address] *IN [facility] [id number], [place] Number: Repository [address]Buq: [id number] [phone] Date:3844-25-45IYUB -9 (HP) [address] [address]FD: 07/03/2017 Secondary NOT GIVENUNK [place] Insurance:SELF PAY [facility] Number: Effective Repository Date:2017-07-03 07/03/2017 Xander Hernandez Primary Xander Hernandez [place] [id number] E Insurance:MYCARE CRSC MillerDOB: [place] [address] *IN [facility] [id number] Number: Repository [address]Jda: [id number] [phone] Date:8844-77-67KLXM -9 (HP) [address]S [address] [address]WT: 07/03/2017 Secondary NOT GIVENUNK [place] Insurance:SELF PAY [facility] Number: Effective Repository Date:2017-07-03 07/03/2017 Xander Hernandez Primary Xander Hernandez [place] [id number] E Insurance:MYCARE CRSC MillerDOB: [place] [address] *IN [facility] [id number], [place] Number: Repository [address]Ntr: [id number] [phone] Date:2713-89-82JISZ -9 (HP) [address] [address]FK: 07/03/2017 Secondary NOT GIVENUNK [place] Insurance:SELF PAY [facility] Number: Effective Repository Date:2017-07-03 07/03/2017 Xander Hernandez Primary Xander Hernandez [place] [id number] E Insurance:MYCARE CRSC MillerDOB: [place] *[place] [address], [place] Number: Repository [address]Fyy: [id number] [phone] Date:1680-01-21CBXR -9 (HP) CLAIMS [address] [address]LS: 07/03/2017 Secondary NOT GIVENUNK [place] Insurance:SELF PAY [facility] Number: Effective Repository Date:2017-07-03 07/03/2017 Xander Hernandez Primary Xander Hernandez [place] [id number] E Insurance:MYCARE CRSC MillerDOB: [place] *[place] [address], [place] Number: Repository [address]Ksj: [id number] [phone] Date:3822-17-51QIPL -9 (HP) CLAIMS [address] [address]EH: 07/03/2017 Secondary NOT GIVENUNK [place] Insurance:SELF PAY [facility] Number: Effective Repository Date:2017-07-03 07/03/2017 Xander Hernandez Primary Xander Hernandez [place] [id number] E Insurance:MYCARE CRSC MillerDOB: [place] *[place] [address], [place] Number: Repository [address]Xag: [id number] [phone] Date:5247-37-95RLLG -9 (HP) [address]S [address] [address]KG: 07/03/2017 Secondary NOT GIVENUNK [place] Insurance:SELF PAY [facility] Number: Effective Repository Date:2017-07-03 07/03/2017 Xander Hernandez Primary Xander Hernandez [place] [id number] E Insurance:MYCARE CRSC MillerDOB: [place] *[place] [address], [place] Number: Repository [address]Akz: [id number] [phone] Date:4809-31-50YFWM -9 () [address] [address]FO: 07/03/2017 Secondary NOT GIVENUNK [place] Insurance:SELF PAY [facility] Number: Effective Repository Date:2017-07-03 07/03/2017 Xander Hernandez Primary Xander Hernandez [place] [id number] E Insurance:MYCARE CRSC MillerDOB: [place] *[place] [address], [place] Number: Repository [address]Tcu: [id number] [phone] Date:1707-19-14AANR -9 () CLAIMS [address] [address]JX: 07/03/2017 Secondary NOT GIVENUNK [place] Insurance:SELF PAY [facility] Number: Effective Repository Date:2017-07-03 07/03/2017 Xander Hernandez Primary Xander Hernandez [place] [id number] E Insurance:MYCARE CRSC MillerDOB: [place] *[place] [address], [place] Number: Repository [address]Rjv: [id number] [phone] Date:9597-17-71CRVU -9 () [address]S [address] [address]WM: 07/03/2017 Secondary NOT GIVENUNK [place] Insurance:SELF PAY [facility] Number: Effective Repository Date:2017-07-03 07/03/2017 Xander Hernandez Primary Xander Hernandez [place] [id number] E Insurance:MYCARE CRSC MillerDOB: [place] *[place] [address], [place] Number: Repository [address]Iwq: [id number] [phone] Date:7338-34-87MUDX -9 (HP) [address]S [address] [address]XA: 07/03/2017 Secondary NOT GIVENUNK [place] Insurance:SELF PAY [facility] Number: Effective Repository Date:2017-07-03 06/29/2017 Xander Hernandez Primary Xander Hernandez [place] [id number] E Insurance:MYCARE CRSC MillerDOB: [place] *IN [facility] [id number] Number: Repository [address]Nci: [id number] [phone] Date:1270-20-86MMHU -9 (HP) [address] [address]GG: 06/29/2017 Secondary NOT GIVENUNK [place] Insurance:SELF PAY [facility] Number: Effective Repository Date:2017-06-29 06/28/2017 Xander Hernandez Primary Xander Hernandez [place] [id number] E Insurance:MYCARE CRSC MillerDOB: [place] *IN [facility] [id number] Number: Repository [address]Ntc: [id number] [phone] Date:2587-98-46HGKG -9 (HP) [address]S [address] [address]JY: 06/28/2017 Secondary NOT GIVENUNK [place] Insurance:SELF PAY [facility] Number: Effective Repository Date:2017-06-28 06/28/2017 Xander Hernandez Primary Xander Hernandez [place] [id number] E Insurance:MYCARE CRSC MillerDOB: [place] *IN [facility] [id number] Number: Repository [address]Jee: [id number] [phone] Date:7747-05-25UKOG -9 (HP) [address] [address]XI: 06/28/2017 Secondary NOT GIVENUNK [place] Insurance:SELF PAY [facility] Number: Effective Repository Date:2017-06-28 06/28/2017 Xander Hernandez Primary Xander Hernandez [place] [id number] E Insurance:MYCARE CRSC MillerDOB: [place] [address] *IN [facility] [id number] Number: Repository [address]Tjp: [id number] [phone] Date:5808-16-02MPEC -9 (HP) CLAIMS [address] [address]GH: 06/28/2017 Secondary NOT GIVENUNK [place] Insurance:SELF PAY [facility] Number: Effective Repository Date:2017-06-28 06/28/2017 Xander Hernandez Primary Xander Hernandez [place] [id number] E Insurance:MYCARE CRSC MillerDOB: [place] [address] *IN [facility] [id number] Number: Repository [address]Hri: [id number] [phone] Date:8871-61-33NPGR -9 (HP) CLAIMS [address] [address]YW: 06/28/2017 Secondary NOT GIVENUNK [place] Insurance:SELF PAY [facility] Number: Effective Repository Date:2017-06-28 06/28/2017 Xander Hernandez Primary Xander Hernandez [place] [id number] E Insurance:MYCARE CRSC MillerDOB: [place] [address] *IN [facility] [id number] Number: Repository [address]Eyc: [id number] [phone] Date:8146-82-87IJYA -9 (HP) [address]S [address] [address]LO: 06/28/2017 Secondary NOT GIVENUNK [place] Insurance:SELF PAY [facility] Number: Effective Repository Date:2017-06-28 06/28/2017 Xander Hernandez Primary Xander Hernandez [place] [id number] E Insurance:MYCARE CRSC MillerDOB: [place] *IN [facility] [id number] Number: Repository [address]Jex: [id number] [phone] Date:4203-57-50ZPCZ -9 () [address] [address]MO: 06/28/2017 Secondary NOT GIVENUNK [place] Insurance:SELF PAY [facility] Number: Effective Repository Date:2017-06-28 06/28/2017 Xander Hernandez Primary Xander Hernandez [place] [id number] E Insurance:MYCARE CRSC MillerDOB: [place] [address] *IN [facility] [id number] Number: Repository [address]Smg: [id number] [phone] Date:1179-08-74JODI -9 () [address]S [address] [address]IG: 06/28/2017 Secondary NOT GIVENUNK [place] Insurance:SELF PAY [facility] Number: Effective Repository Date:2017-06-28 06/28/2017 Xander Hernandez Primary Xander Hernandez [place] [id number] E Insurance:MYCARE CRSC MillerDOB: [place] [address] [address] *IN [facility] [id number] Number: Repository [address]Tzx: [id number] [phone] Date:3996-96-33GNWT -9 () [address] [address]AJ: 06/28/2017 Secondary NOT GIVENUNK [place] Insurance:SELF PAY [facility] Number: Effective Repository Date:2017-06-28 06/28/2017 Xander Hernandez Primary Xander Hernandez [place] [id number] E Insurance:MYCARE CRSC MillerDOB: [place] [address] [address] *IN [facility] [id number] Number: Repository [address]Omz: [id number] [phone] Date:5328-69-06EHKZ -9 (HP) [address] [address]DC: 06/28/2017 Secondary NOT GIVENUNK [place] Insurance:SELF PAY [facility] Number: Effective Repository Date:2017-06-28 06/28/2017 Xander Hernandez Primary Xander Hernandez [place] [id number] E Insurance:MYCARE CRSC MillerDOB: [place] [address] [address] *IN [facility] [id number] Number: Repository [address]Gau: [id number] [phone] Date:1285-05-79ZTFL -9 (HP) [address] [address]VI: 06/28/2017 Secondary NOT GIVENUNK [place] Insurance:SELF PAY [facility] Number: Effective Repository Date:2017-06-28 06/24/2017 Xander Hernandez Primary Xander Hernandez [place] [id number] E Insurance:MYCARE CRSC MillerDOB: [place] [address] [address] *IN [facility] [id number] Number: Repository [address]Zgp: [id number] [phone] Date:7903-74-64WDIW -9 (HP) [address] [address]VM: 06/24/2017 Secondary NOT GIVENUNK [place] Insurance:SELF PAY [facility] Number: Effective Repository Date:2017-06-24 06/09/2017 Xander Hernandez Primary Xander Hernandez [place] [id number] E Insurance:MYCARE CRSC MillerDOB: [place] [address] [address] *IN [facility] [id number] Number: Repository [address]Ugj: [id number] [phone] Date:4079-77-09OUQA -9 (HP) [address] [address]FN: 06/09/2017 Secondary NOT GIVENUNK [place] Insurance:SELF [facility]Y [facility] Number: Effective Repository Date:2017-06-09
== END ==
PROVIDERS: Family Provider Family Medicine Geriatric Medicine; PCP Family Medicine Geriatric Medicine; Referring Provider Family Medicine Geriatric Medicine; Visit Provider Family Medicine Geriatric Medicine
DX: R05 Cough (principal); R50.9 Fever, unspecified
CPT/HCPCS: 71046; 87633

== ENCOUNTER → 2018-06-01 16:50 | Outpatient (CLI) | payer MEDICARE, SELFPAY ==
[2018-06-01 17:24] LABS: Absolute Lymphocyte Count 1.94 X10^3/ul (0.83-4.51); Absolute Neutrophil Count 5.3 X10^3/uL (2.0-7.7); Basophil# 0.03 X10^3/uL; Basophil% 0.4 % (0-1); Eosinophil# 0.25 X10^3/uL; Hematocrit 42.4 % (37-47); Hemoglobin 13.7 g/dl (12.0-15.0); Lymphocyte # 1.94 X10^3/ul (4.0); Mean Corp Hgb Conc 32.3 g/gl (32-36); Mean Corpuscular Hgb 30.7 pg (27.0-32.0); Mean Corpuscular Volume 95.1 fL (81-99); Mean Platelet Vol. 8.8 fl (6.2-12.0); Monocyte# 0.95 X10^3/uL; Monocyte% 11.2 % (0-10); Neutrophil # 5.26 X10^3/uL (2.7-7.7); Neutrophil % 62.2 % (47-70); Platelet Count 241 K/mm3 (150-450); RBC Distribution Width CV 14.2 % (11.6-14.6); RBC Distribution Width SD 48.8 fl (35.1-43.9); Red Blood Count 4.46 M/mm3 (4.2-5.4); White Blood Count 8.5 K/mm3 (4.4-11.0)
[2018-06-01 17:25] LABS: POSITIVE COUNT NO; POSITIVE DIFFERENTIAL NO; POSITIVE MORPHOLOGY NO
[2018-06-01 18:41] LABS: ALB/GLOB Ratio 0.9 RATIO (0.9-2.4); AST(SGOT) 16 U/L (15-37); Alanine Aminotransfer ALT/SGPT 37 U/L (13-56); Albumin, Serum 3.3 g/dL (3.2-5.0); Alkaline Phosphatase 77 U/L (45-117); Anion Gap 9 (5-15); BUN 8 mg/dL (7-18); BUN/Creat Ratio 13.7 RATIO (10-20); Calcium,Total 8.8 mg/dL (8.5-10.1); Chloride 103 mmol/L (98-107); Creatinine, Serum 0.58 mg/dL (0.55-1.02); EST Glomerular Filtration Rate 109 mL/min (>60); Est Glom Filt Rate - Afr Amer 132 mL/min (>60); Globulin 3.6 g/dL (2.2-4.2); Glucose 119 mg/dL (74-106); Potassium 4.3 mmol/L (3.5-5.1); Protein, Total 6.9 g/dL (6.4-8.2); Sodium Level 138 mmol/L (136-145)
[2018-06-01 19:15] LABS: Phenytoin (Dilantin) Level 0.9 mL (10.0-20.0)
--- OUTSIDE RECORDS SUMMARY | 2018-07-18 14:20 | XMS RPT_ITS ---
:1950 Author Organization [place] Support Name Relationship Address Phone CEM CATHERINEA Unavailable Unavailable + marcus QUAN [id number] ASAD RAMIREZ Unavailable [address] + [place] [address] R Unavailable Unavailable Unavailable FLORIN, ZAHIDA Unavailable Unavailable + [place] [address] ASAD RAMIREZ Unavailable [address] + [place] [address] R Unavailable Unavailable Unavailable FLORIN, ZAHIDA Unavailable Unavailable + [place] [address] ASAD RAMIREZ Unavailable [address] + [place] [address] R Unavailable Unavailable Unavailable FLORIN, ZAHIDA Unavailable Unavailable + [place] [address] ASAD RAMIREZ Unavailable [address] + [place] [address] R Unavailable Unavailable Unavailable FLORIN, ZAHIDA Unavailable Unavailable + [place] [address] ASAD RAMIREZ Unavailable [address] + [place] [address] R Unavailable Unavailable Unavailable FLORIN, ZAHIDA Unavailable Unavailable + [place] [address] ASAD RAMIREZ Unavailable [address] + [place] [address] R Unavailable Unavailable Unavailable FLORIN, ZAHIDA Unavailable Unavailable + [place] [address] ASAD RAMIREZ Unavailable [address] + [place] [address] R Unavailable Unavailable Unavailable FLORIN, ZAHIDA Unavailable Unavailable + [place] [address] ASAD RAMIRZE Unavailable [address] + [place] [address] R Unavailable Unavailable Unavailable FLORIN, ZAHIDA Unavailable Unavailable + [place] [address] JAMES, ASAD Unavailable [address] + [place] [address] R Unavailable Unavailable Unavailable FLORIN, ZAHIDA Unavailable Unavailable + [place] [address] JAMES, ASAD Unavailable [address] + [place] [address] R Unavailable Unavailable Unavailable FLORIN, ZAHIDA Unavailable Unavailable + [place] [address] JAMES ASAD Unavailable [address] + [place] [address] R Unavailable Unavailable Unavailable FLORIN, ZAHIDA Unavailable Unavailable + [place] [address] JAMES ASAD Unavailable [address] + [place] [address] R Unavailable Unavailable Unavailable FLORIN, ZAHIDA Unavailable Unavailable + [place] [address] ASAD RAMIREZ Unavailable [address] + [place] [address] R Unavailable Unavailable Unavailable FLORIN, ZAHIDA Unavailable Unavailable + [place] [address] JAMES, ASAD Unavailable [address] + [place] [address] R Unavailable Unavailable Unavailable FLORIN, ZAHIDA Unavailable Unavailable + [place] [address] ASAD RAMIREZ Unavailable [address] + [place] [address] R Unavailable Unavailable Unavailable FOLRIN, ZAHIDA Unavailable Unavailable + [place] [address] JAMES, ASAD Unavailable [address] + [place] [address] R Unavailable Unavailable Unavailable FLORIN, ZAHIDA Unavailable Unavailable + [place] [address] JAMES, ASAD Unavailable [address] + [place] [address] R Unavailable Unavailable Unavailable RAMIREZ, ASAD Unavailable [address] + [place] [address] R Unavailable Unavailable Unavailable RAMIREZ, ASAD Unavailable [address] + [place] [address] R Unavailable Unavailable Unavailable RAMIREZ, ASAD Unavailable [address] + [place] [address] R Unavailable Unavailable Unavailable RAMIREZ, ASAD Unavailable [address] + [place] [address] R Unavailable Unavailable Unavailable RAMIREZ, ASAD Unavailable [address] + [place] [address] R Unavailable Unavailable Unavailable RAMIREZ, ASAD Unavailable [address] + [place] [address] R Unavailable Unavailable Unavailable RAMIREZ, ASAD Unavailable [address] + [place] [address] R Unavailable Unavailable Unavailable RAMIREZ, ASAD Unavailable [address] + [place] [address] R Unavailable Unavailable Unavailable RAMIREZ, ASAD Unavailable [address] + [place] [address] R Unavailable Unavailable Unavailable RAMIREZ, ASAD Unavailable [address] + [place] [address] R Unavailable Unavailable Unavailable FLORIN, ZAHIDA Unavailable Unavailable + [place] [address] RAMIREZ, ASAD Unavailable [address] + [place] [address] R Unavailable Unavailable Unavailable FLORIN, ZAHIDA Unavailable Unavailable + [place] [address] RAMIREZ, ASAD Unavailable [address] + [place] [address] R Unavailable Unavailable Unavailable FLORIN, ZAHIDA Unavailable Unavailable + [place] [address] RAMIREZ, ASAD Unavailable [address] + [place] [address] R Unavailable Unavailable Unavailable RAMIREZ, ASAD Unavailable [address] + [place] [address] R Unavailable Unavailable Unavailable RAMIREZ, ASAD Unavailable [address] + [place] [address] R Unavailable Unavailable Unavailable RAMIREZ, ASAD Unavailable [address] + [place] [address] R Unavailable Unavailable Unavailable R Unavailable Unavailable Unavailable RAMIREZ, ASAD Unavailable [address] + [place] [address] RAMIREZ, CRYSTAL Unavailable [address] + [address] [place] [address] R Unavailable Unavailable Unavailable RAMIREZ, ASAD Unavailable [address] + [place] [address] RAMIREZ, CRYSTAL Unavailable [address] + [address] [place] [address] R Unavailable Unavailable Unavailable RAMIREZ, ASAD Unavailable [address] + [place] [address] RAMIREZ, CRYSTAL Unavailable [address] + [address] [place] [address] R Unavailable Unavailable Unavailable RAMIREZ, ASAD Unavailable [address] + [place] [address] RAMIREZ, CRYSTAL Unavailable [address] + [address] [place] [address] R Unavailable Unavailable Unavailable RAMIREZ, ASAD Unavailable [address] + [address] [place] [address] RAMIREZ, CRYSTAL Unavailable [address] + [address] [place] [address] R Unavailable Unavailable Unavailable RAMIREZ, ASAD Unavailable [address] + [address] [place] [address] RAMIREZ, CRYSTAL Unavailable [address] + [address] [place] [address] R Unavailable Unavailable Unavailable RAMIREZ, ASAD Unavailable [address] + [address] [place] [address] RAMIREZ, CRYSTAL Unavailable [address] + [address] [place] [address] R Unavailable Unavailable Unavailable RAMIREZ, ASAD Unavailable [address] + [address] [place] [address] RAMIREZ, CRYSTAL Unavailable [address] + [address] [place] [address] R Unavailable Unavailable Unavailable RAMIREZ, ASAD Unavailable [address] + [address] [place] [address] RAMIREZ, CRYSTAL Unavailable [address] + [address] [place] [address] R Unavailable Unavailable Unavailable RAMIREZ, ASAD Unavailable [address] + [address] [place] [address] RAMIREZ, CRYSTAL Unavailable [address] + [address] [place] [address] R Unavailable Unavailable Unavailable RAMIREZ, ASAD Unavailable [address] + [address] [place] [address] RAMIREZ, CRYSTAL Unavailable [address] + [address] [place] [address] R Unavailable Unavailable Unavailable RAMIREZ, ASAD Unavailable [address] + [address] [place] [address] RAMIREZ, CRYSTAL Unavailable [address] + [address] [place] [address] R Unavailable Unavailable Unavailable RAMIREZ, ASAD Unavailable [address] + [address] [place] [address] RAMIREZ, CRYSTAL Unavailable [address] + [address] [place] [address] R Unavailable Unavailable Unavailable RAMIREZ, ASAD Unavailable [address] + [address] [place] [address] RAMIREZ, CRYSTAL Unavailable [address] + [address] [place] [address] R Unavailable Unavailable Unavailable RAMIREZ, ASAD Unavailable [address] + [address] [place] [address] RAMIREZ, CRYSTAL Unavailable [address] + [address] [place] [address] R Unavailable Unavailable Unavailable Care Team Providers Name Role Phone Patel Veliz Chi Attending Unavailable Patel Veliz Chi Referring Unavailable Patel Veliz Chi Primary Care Unavailable Jose Alfredo, Patel Chi Primary Care Unavailable Agyepong, Yunior Admitting Unavailable Koram, Silva Patti Attending Unavailable Agyepong, Yunior Admitting Unavailable Agyepong, Yunior Attending Unavailable Jose Alfredo, Patel Chi Primary Care Unavailable Agyepong, Yunior Consulting Unavailable Agyepong, Yunior Admitting Unavailable KoAbelardo greer Attending Unavailable Jose Alfredo, Patel Chi Primary Care Unavailable Abelardo Waldrop Consulting Unavailable Jose Alfredo, Patel Chi Attending Unavailable Jose Alfredo, Patel Chi Primary Care Unavailable Jose Alfredo, Patel Chi Primary Care Unavailable Sheng Melendez Attending Unavailable Jose Alfredo, Patel Chi Primary Care Unavailable Peng Pastrana Attending Unavailable Jose Alfredo, Patel Chi Primary Care Unavailable Roopa Victor Attending Unavailable Georgiana Andujar Attending Unavailable Basali Aycarmina Referring Unavailable Jose Alfredo, Patel Chi Primary Care Unavailable Jose Alfredo, Patel Chi Primary Care Unavailable White, Arielle Admitting Unavailable Dariusz Gilmore Attending Unavailable White, Arielle Admitting Unavailable Jose Alfredo, Patel Chi Primary Care Unavailable White, Arielle Consulting Unavailable White, Arielle Attending Unavailable Jose Alfredo, Patel Chi Attending Unavailable Jose Alfredo, Patel Chi Referring Unavailable Jose Alfredo, Patel Chi Primary Care Unavailable Agyepong, Yunior Admitting Unavailable Abelardo Waldrop Attending Unavailable Jose Alfredo, Patel Chi Primary Care Unavailable Abelardo Waldrop Consulting Unavailable Agyepong, Yunior Admitting Unavailable Jose Alfredo, Patel Chi Primary Care Unavailable Abelardo Waldrop Consulting Unavailable Abelardo Waldrop Attending Unavailable Agyepong, Yunior Admitting Unavailable Abelardo Waldrop Attending Unavailable Jose Alfredo, Patel Chi Primary Care Unavailable Abelardo Waldrop Consulting Unavailable Agyepong, Yunior Admitting Unavailable Abelardo Waldrop Attending Unavailable Jose Alfredo, Patel Chi Primary Care Unavailable Abelardo Waldrop Consulting Unavailable Agyepong, Yunior Admitting Unavailable Koram, Silva Patti Attending Unavailable Jose Alfredo, Patel Chi Primary Care Unavailable Koram, Silva Patti Consulting Unavailable Agyepong, Yunior Admitting Unavailable Koram, Silva Patti Attending Unavailable Jose Alfredo, Patel Chi Primary Care Unavailable Koram, Silva Patti Consulting Unavailable Agyepong, Yunior Admitting Unavailable Koram, Silva Patti Attending Unavailable Jose Alfredo, Patel Chi Primary Care Unavailable Koram, Silva Patti Consulting Unavailable Jose Alfredo, Patel Chi Attending Unavailable Jose Alfredo, Patel Chi Primary Care Unavailable White, Arielle Admitting Unavailable Tavo Patino Attending Unavailable Jose Alfredo, Patel Chi Primary Care Unavailable Dariusz Gilmore Consulting Unavailable Jose Alfredo, Patel Chi Primary [...] Primary Care Unavailable Peng Pastrana Attending Unavailable Jr Dunlap Attending Unavailable Jose Alfredo, Patel Chi Referring Unavailable Jose Alfredo, Patel Chi Primary Care Unavailable Jr Dunlap Attending Unavailable Jose Alfredo, Patel Chi Referring Unavailable Jose Alfredo, Patel Chi Primary Care Unavailable Thai Alfaro Attending Unavailable Jose Alfredo, Patel Chi Primary Care Unavailable White, Arielle Admitting Unavailable Theoeri Thai Attending Unavailable White, Arielle Admitting Unavailable White, Arielle Attending Unavailable Jose Alfredo, Patel Chi Primary Care Unavailable White, Arielle Consulting Unavailable White, Arielle Admitting Unavailable Jopperi Thai Attending Unavailable Jose Alfredo, Patel Chi Primary Care Unavailable Jopperi, Thai Consulting Unavailable White, Arielle Admitting Unavailable Jopperi Thai Attending Unavailable Jose Alfredo, Patel Chi [...] Arielle Consulting Unavailable White, Arielle Admitting Unavailable KoyvetteoniAbelardo bowens F Attending Unavailable Jose Alfredo, Patel Chi Primary Care Unavailable Carmina Waldrops F Consulting Unavailable White, Arielle Admitting Unavailable Abelardo Waldrop Attending Unavailable Jose Alfredo, Patel Chi Primary Care Unavailable KotsoniCarmina bowenss F Consulting Unavailable White, Arielle Admitting Unavailable KoAbelardo greer F Attending Unavailable Jose Alfredo, Patel Chi Primary Care Unavailable Abelardo Waldrop Consulting Unavailable Jose Alfredo, Patel Chi Primary Care Unavailable Roopa Victor Attending Unavailable Mary, Gilbert Attending Unavailable White, Arielle Referring Unavailable Jose Alfredo, Patel Chi Primary Care Unavailable Harley Garcia Attending Unavailable Saulo Moss Attending Unavailable Thai Collado Referring Unavailable Mary, Gilbert Attending Unavailable White, Arielle Referring Unavailable Basali, Ayman Attending Unavailable Basali, Ayman Referring Unavailable Jose Alfredo, Patel Chi Primary Care Unavailable Jose Alfredo, Patel Chi Attending Unavailable Jose Alfredo, Patel Chi Referring Unavailable Jose Alfredo, Patel Chi Primary Care Unavailable PROBLEMS PROBLEMS DATE TYPE CONDITION / CODE ATTENDING STATUS SOURCE 06/01/2018 Unknown 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, Jose Alfredo, 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8 - Abnormal Moodispaw, Active [facility] levels of other serum Saulo Community enzymes / Hospital R74.8(ICD-10) Repository 04/10/2018 Unknown R94.31 - Abnormal Mary, Tank Active [facility] electrocardiogram Community [ECG] [EKG] / Hospital R94.31(ICD-10) Repository 11/03/2017 Unknown F11.20 - Opioid Basali, Ayman Active [facility] dependence, Community uncomplicated / Hospital F11.20(ICD-10) Repository 08/22/2017 Unknown E55.9 - Vitamin D Jose Alfredo, Patel Chi Active [facility] deficiency, Community unspecified / Hospital E55.9(ICD-10) Repository 08/22/2017 Unknown I10 - Essential Jose Alfredo, Patel Chi Active [facility] (primary) hypertension Community / I10(ICD-10) Hospital Repository 08/22/2017 Unknown Z13.89 - Encounter for Jose Alfredo, Patel Chi Active [facility] screening for other Community disorder / Hospital Z13.89(ICD-10) Repository PROCEDURES PROCEDURES No Procedure Records FoundRESULTS RESULTS DISCHARGE SUMMARY Observed: 06/21/2018 Status: F Source: [place] 1:57 PM [facility] REPOSITORY [facility] Medical Records Department [address] [place] [address] Discharge Summary 06/21/18 1125 MR#: [id number] Acct: [id number] Name: XANDER RAMIREZ Rep #: [id number] : 1950 67 From: Silva Greene MD PCP: Patel Veliz MD, Chi Status: ADM IN Y Location: [place] [address] Discharge Date and Diagnosis - Problem List Patient Problems: Active and Suspected Problems (Last Reviewed 06/13/18 @ 22:00 by Yunior Heaton MD) Severe sepsis (Acute) Hypoxemia (Acute) Suicidal ideation (Acute) COPD with exacerbation (Acute) Severe sepsis (Acute) Community acquired pneumonia (Acute) Date of Admission: 06/13/18 Date of Discharge: 06/21/18 - Primary Discharge Diagnosis Active and Suspected Problems (Last Reviewed 06/13/18 @ 22:00 by Yunior Heaton MD) Severe sepsis (Acute) Hypoxemia (Acute) Suicidal ideation (Acute) COPD with exacerbation (Acute) Severe sepsis (Acute) Community acquired pneumonia (Acute) URTI due to RSV hypokalemia - Secondary Discharge Diagnosis Chronic Problems (Last Reviewed 06/13/18 @ 22:00 by Yunior Heaton MD) Tobacco use (Chronic) Generalized weakness (Chronic) Debility [...] (Chronic) Hospital Course and Treatment Imaging Results: Diagnostic Data Chest X-Ray 06/15/18 13:51 IMPRESSION: Heavy markings noted at the bases but no obvious consolidation or atelectasis no change noted since the study of June 13, 2018 Electronically Signed: Jl Wise, at 14:55 EST Tel , Service support , Consultations 06/13/18 21:07 Consult: Mental Health/Crisis Routine Reason for consult?: Suicial Notified answering service Date Notified:: 06/13/18 Time notified:: 21:08 Operations: None Procedures: None Summary of Care Provided: The patient is a 67 year old F with an extensive past medical history as listed below and includes chronic respiratory failure due to COPD on 2 L of oxygen. She was admitted through the ED with a complaint of worsening shortness of breath, fever chills, wheezing and a productive cough. The ED she was found to be saturating at 87% on 3 L. She also complained of suicidal ideation and says she had a box printer at home which she knew how to use. She was admitted and managed for severe sepsis due to pneumonia on account of tachypnea and tachycardia as well as elevated lactic acid. She was started on IV ceftriaxone and azithromycin and breathing treatments as well as IV Solu-Medrol. Rapid influenza screen was negative. She was also managed for hypokalemia, COPD exacerbation and suicidal ideation. Respiratory panel was positive for RSV infection and sepsis was ruled out as the SIRS criteria was likely due to the RSV infection and upper respiratory tract infection. She remained stable and oxygen was titrated down to a baseline 2-3 L of oxygen. She was evaluated by mental health crisis on 06/19/2018 and cleared by them. She initially wanted to be discharged home but subsequently changed her mind and wanted to go to a halfway as he could not take care of herself at home. She was discharged to a halfway facility on 06/21/2018. She is follow-up with her primary care doctor. She was discharged on a baseline 2-3 L of oxygen. Patient seen and examined prior to discharge. She felt well and had no complaints. She was on 3 L of oxygen. She denied any fever, any chills, any chest pain, shortness of systems is otherwise negative. Labs and vitals reviewed. Home medications reviewed and reconciled. o/e: Vital Signs Height 5 ft 5 in Weight: 157 lb 12.804 oz Weight in Pounds 157.8 lbs Pulse Ox [AMBULATING on Room 91 []General: Alert, Oriented x3, Cooperative, No apparent distress HEENT: Atraumatic, PERRLA, EOMI, Normocephalic Oral: Moist Mucosa Neck: Supple, No JVD, Negative Carotid Bruits, Negative Hepatojugular Reflux, No Nodes, No Nuchal Rigidity Lungs: Clear to auscultation, Normal air movement, No rhonchi, No wheeze, No rales, - - on 3L of oxygen Cardiovascular: Regular rate, Regular Rhythm, Normal S1, Normal S2, No murmurs Abdomen: Bowel Sounds Present, Soft, Non Tender, Non-Distended, No Hepato-splenomegaly Extremities: No clubbing, No cyanosis, No edema, Capillary Refill Less than 3 Seconds Skin: No rashes, No breakdown Musculoskeletal: No Tenderness to Palpation of Joints or Extremities Lymphatic: No Cervical, Supraclavicular, or Inguinal Adenopathy Neurological: Cranial nerves II-XII grossly intact Psych/Mental Status: Normal Affect, Appropriate, Alert and oriented to time, place, person, mood and affect Plan as stated above. Was also discharged with a prescription for p.o. prednisone 40 mg daily for 5 days. Patient Problems: Active and Suspected Problems (Last Reviewed 06/13/18 @ 22:00 by Yunior Heaton MD) Severe sepsis (Acute) Hypoxemia (Acute) Suicidal ideation (Acute) COPD with exacerbation (Acute) Severe sepsis (Acute) Community acquired pneumonia (Acute) - Physical Exam Vital Signs Temp Pulse Resp BP Pulse Ox 98.7 F 74 18 97/74 98 06/21/18 10:00 06/21/18 10:49 06/21/18 10:49 06/21/18 10:00 06/21/18 10:00 Oxygen Flow Rate (L/min) 1 Oxygen Delivery Method Room Air Weight: 157 lb 12.804 oz Body Mass Index (BMI) 26.2 Intake and Output for Last 24 Hours Intake Total 1150 / 1150 820 / 820 720 / 720 Output Total 100 / 100 0 / 0 Balance 1050 / 1050 820 / 820 720 / 720 Microbiology Past 72 Hours 06/13/18 18:24 Blood Culture - Final Discharge Diet: Low fat/ Low Cholesterol Discharge Activity: Return to Normal Activity Weight Bearing Status: Weight bearing as tolerated Call your doctor if you observe: Fever of 101 or Higher, Shortness of breath, Increased palpitations (irregular heartbeat), - - worsening cough Home Medications: Medications to take at Discharge Albuterol Aerosols [Ventolin Aerosols] 2.5 mg INHALATION Q6H PRN 05/12/16 Alendronate Sodium [Fosamax] 70 mg PO FR 05/12/16 Etodolac 400 mg PO BID 05/12/16 Fluticasone/Salmeterol [Advair 250/50 Mcg Diskus] 2 puff INHALATION BID 05/12/16 Gabapentin [Neurontin] 300 mg PO 4X/DAY 05/12/16 Temazepam [Restoril] 30 mg PO QHS 06/24/17 Mirtazapine [Remeron] 15 mg PO QHS 07/03/17 Latanoprost 0.005% [Xalatan Opthalmic] 1 drp EACH EYE QHS 07/04/17 Methadone HCl 10 mg PO TID 09/04/17 Ergocalciferol [Vitamin D] 50,000 units PO MO 11/07/17 Phenobarbital 32.4 mg PO BID 11/07/17 Potassium Chloride [K-Dur] 10 meq PO DAILY 11/07/17 Pravastatin [Pravachol] 40 mg PO QHS 11/07/17 Acetaminophen [Tylenol Tablet] 650 mg PO Q6H PRN PRN tablet 03/07/18 Aspirin [Aspirin, Baby] 81 mg PO DAILY@0800 tab.chew 03/07/18 Metoprolol Tartrate 25 mg PO BID #60 tab 03/07/18 Ipratropium/Albuterol Sulfate [Duoneb] 3 ml INHALATION BID 04/03/18 Sennosides/Docusate Sodium [Senna-Docusate Sodium Tablet] 2 each PO BID 04/03/18 Clotrimazole 1 applic TOPICAL DAILY 06/13/18 Hydrocortisone 1% Crm 1 applic TOPICAL BID 06/13/18 Melatonin 10 mg PO QHS 06/13/18 Oxcarbazepine [Trileptal] 600 mg PO BID 06/13/18 Phenytoin Sodium Extended [Dilantin] 100 mg PO 4X/DAY 06/13/18 Ranitidine HCl [Zantac] 300 mg PO DAILY 06/13/18 Risperidone 0.25 mg PO DAILY 06/13/18 Ropinirole HCl [Requip] 2 mg PO DAILY 06/13/18 Tolterodine Tartrate [Detrol LA] 4 mg PO DAILY 06/13/18 Prednisone 40 mg PO DAILY 5 Days #10 tablet 06/19/18 Following Prescrptions Were Given to Patient: Prednisone 40 mg PO DAILY 5 Days #10 tablet Primary Care Physician: Patel Veliz Chi, MD [Primary Care Provider] - Please follow up with your Primary Care Physician in: one week Please Follow Up With: Patel Veliz Chi, MD Patient Instructions: RSV (Respiratory Syncytial Virus) Disposition: Nursing Home facility Minutes spent on discharge:: 35 Patient Condition:: Stable Medical Necessity - Tobacco Use Smoking Status: Current every day smoker Meaningful Use Info Meaningful Use Diagnoses (Choose all that apply): None applicable Code Visit Inpatient E AND M: [id number] Disch Hosp 06/21/18 1357 <Electronically signed by Silva Greene MD> Date Silva Greene MD Cosigner Signature (if applicable): Date CC: Silva Greene MD; Patel Veliz MD Signed TRANSFER TO EXTENDED Observed: 06/21/2018 Status: F Source: [facility] 11:25 AM [facility] REPOSITORY [facility] Medical Records Department [address] [place] [id number] Transfer to Extended Care MR#: [id number] Acct: [id number] Name: XANDER RAMIREZ Rep #: [id number] : 1950 67 From: Silva Greene MD PCP: Patel Veliz MD, Chi Status: ADM IN XANDER RAMIREZ (Patient) (Health Ins. Claim No.) (Day of Discharge to Facility) Certification of patient admission REQUIRED AT TIME OF ADMISSION. I CERTIFY THAT POST-HOSPITAL ECF SERVICES ARE REQUIRED TO BE GIVEN ON AN IN-PATIENT BASIS BECAUSE OF THE ABOVE NAMED PATIENT'S NEED FOR [facility] CARE ON A CONTINUING BASIS FOR THE CONDITION(S) FOR WHICH HE/SHE WAS RECEIVING IN-PATIENT HOSPITAL SERVICES PRIOR TO HIS/HER TRANSFER TO THE [facility]. 06/21/181124 <Electronically signed by Silva Greene MD> Date Silva Greene MD - Diet 06/13/18 20:34 Diet: Regular Diet Food consistency:: Regular Liquid Consistency:: Regular/Thin - Routine Orders/Code Status Enema Type: Fleetz Enema Frequency: Daily PRN Suppository Type: Dulcolax 10mg Suppository Frequency: Daily PRN O2 Liters per Minute: 3 O2 Frequency: Continuous Keep PO Greater than or Equal to (%): 92 Code Status: Full Code - Wound(s) BUE Wound Type: Abrasion B/L thighs Wound Type: Abrasion - Therapies Physical Therapy: Eval and Treat Occupational Therapy: Eval and Treat - Allergies/Procedures Done in Hospital Allergies/Adverse Reactions: Allergies Penicillins Allergy (Verified 03/19/18 20:21) Anaphylaxis codeine Adverse Reaction (Verified 03/19/18 20:21) Nausea Procedures: None - Type of Care/Length of Stay Estimated LOS: Convalescent Care Less Than 30 days Type of Care Needed: Skilled Rehab Potential: Fair Prognosis: Fair - Additional Orders/Day of Discharge Day of Discharge: 06/21/18 - Dietary and Speech Recommendations Dietitian Recommendations/Changes: Continue regular diet. Ensure Enlive 120 mL 4x/day when pt able to tolerate PO diet better. - Follow Up Care Primary Care Physician: Patel Veliz Chi, MD [Primary Care Provider] - Please follow up with your Primary Care Physician in: one week Please Follow Up With: Patel Veliz Chi, MD 06/21/18 1125 <Electronically signed by Silva Greene MD> Date Silva Greene MD CC: Patel Veliz MD Signed CBC W/DIFF, AUTOMATED Collected: 06/20/2018 Status: F Source: [place] 9:42 AM [facility] REPOSITORY TYPE CODE TESTS RESULT OUT OF RANGE REFERENCE UNITS LAB L100.1000 4.4-11.0 K/mm3 Low WBC 4.0 LAB L100.1200 4.2-5.4 M/mm3 Normal RBC 4.30 LAB L100.1300 12.0-15.0 g/dl Normal HGB 12.9 LAB L100.1400 37-47 % Normal HCT 39.5 LAB L100.1500 81-99 fL Normal MCV 91.9 LAB L100.1600 27.0-32.0 pg Normal MCH 30.0 LAB L100.1700 32-36 g/gl Normal MCHC 32.7 LAB L100.1810 11.6-14.6 % Normal RDW CV 13.8 LAB L100.1820 35.1-43.9 fl High RDW SD 46.0 LAB L100.1900 150-450 K/mm3 Normal PLT 174 LAB L100.2000 6.2-12.0 fl Normal MPV 8.6 LAB L100.2100 47-70 % Normal NEUT% 65.6 LAB L100.2200 19-41 % Normal LY% 25.3 LAB L100.2300 0-10 % Normal MONO% 7.3 LAB L100.2400 0-5 % Normal EO% 0.5 LAB L100.2500 0-1 % Normal BASO% 0.3 LAB L100.2550 0.0-0.9 % High IM GRAN % 1.000 Result Comment: IG% - Immature Granulocytes (promyelocytes, myelocytes and metamyelocytes) > 1% indicates that a LEFT SHIFT is Present. LAB L100.2620 2.0-7.7 X10 3/uL Normal Absolute Neut 2.6 LAB L100.2720 0.83-4.51 X10 3/ul Normal Absolute Lymph 1.01 Performed By: #### L100.0100 #### [facility] [address] [place], [address] BASIC METABOLIC Collected: 06/20/2018 Status: F Source: [place] PROFILE (BMP) 9:42 AM [facility] REPOSITORY TYPE CODE TESTS RESULT OUT OF RANGE REFERENCE UNITS LAB L501.0100 74-106 mg/dL High GLU 161 Result Comment: Fasting Glucose result greater than or equal to 126 mg/dL suggests DIABETES MELLITUS per A.D.A. criteria. Please note revised GLUCOSE reference range effective 2017. LAB L501.1000 7-18 mg/dL Normal BUN 14 LAB L501.1100 0.55-1.02 mg/dL Low CREAT,SERUM 0.40 Result Comment: The validity of the calculated GFR AND GFRAA in patients over 70 years has not been determined. Clinical correlation is essential. LAB L501.1110 >60 mL/min Normal EST GFR 167 Result Comment: Non- GFR Calc LAB L501.1115 >60 mL/min Normal EST GFR - AA 203 Result Comment: GFR Calc LAB L501.1255 ml/min Normal Estimated CRCL 48.45 LAB L501.1300 10-20 RATIO High BUN/CRE 34.8 LAB L501.2200 8.5-10 mg/dL Low .1 CA 8.1 LAB L501.5300 136-14 mmol/L Low 5 NA 135 LAB L501.5600 3.5-5. mmol/L Normal 1 K 4.1 LAB L501.5900 98-107 mmol/L Normal CL 98 LAB L501.6100 21.0-3 mmol/L Normal 2.0 CO2 28.0 LAB L501.6200 5-15 Normal GAP 9 Performed By: #### L500.2500 #### [facility] [address] [facility] [facility] [place], [address] DISCHARGE INSTRUCTION Observed: 06/19/2018 Status: F Source: [place] 2:12 PM [facility] REPOSITORY [facility] Medical Records Department [address] [place] [address] Instructions for Home/Discharge Instructions 06/19/18 1407 MR#: [id number] Acct: [id number] Name: XANDER RAMIREZ Rep #: [id number] : 1950 67 From: Silva Greene MD PCP: Jose Alfredo LEACH,Patel Garvey Status: ADM IN - Discharge Diagnoses Current Active Problems: Current Active and Chronic Problems (Last Reviewed 06/13/18 @ 22:00 by Yunior Heaton MD) Severe sepsis (Acute) Hypoxemia (Acute) Suicidal ideation (Acute) COPD with exacerbation (Acute) Severe sepsis (Acute) Community acquired pneumonia (Acute) COPD (chronic obstructive pulmonary disease) (Chronic) 1 ppd now smoker 4 ppd You will use the following diet at home:: Cardiac Your food should be the consistency of: Regular Your liquids should be the consistency of: Regular/Thin Discharge Activity: Return to Normal Activity Weight Bearing Status: Weight bearing as tolerated Call your doctor if you observe: Fever of 101 or Higher, Shortness of breath, Increased palpitations (irregular heartbeat), - - worsening cough Instructions: RSV (Respiratory Syncytial Virus) Allergies/Adverse Reactions: Allergies Penicillins Allergy (Verified 03/19/18 20:21) Anaphylaxis codeine Adverse Reaction (Verified 03/19/18 20:21) Nausea Medications to take at Discharge Albuterol Aerosols [Ventolin Aerosols] 2.5 mg INHALATION Q6H PRN 05/12/16 Alendronate Sodium [Fosamax] 70 mg PO FR 05/12/16 Etodolac 400 mg PO BID 05/12/16 Fluticasone/Salmeterol [Advair 250/50 Mcg Diskus] 2 puff INHALATION BID 05/12/16 Gabapentin [Neurontin] 300 mg PO 4X/DAY 05/12/16 Temazepam [Restoril] 30 mg PO QHS 06/24/17 Mirtazapine [Remeron] 15 mg PO QHS 07/03/17 Latanoprost 0.005% [Xalatan Opthalmic] 1 drp EACH EYE QHS 07/04/17 Methadone HCl 10 mg PO TID 09/04/17 Ergocalciferol [Vitamin D] 50,000 units PO MO 11/07/17 Phenobarbital 32.4 mg PO BID 11/07/17 Potassium Chloride [K-Dur] 10 meq PO DAILY 11/07/17 Pravastatin [Pravachol] 40 mg PO QHS 11/07/17 Acetaminophen [Tylenol Tablet] 650 mg PO Q6H PRN PRN tablet 03/07/18 Aspirin [Aspirin, Baby] 81 mg PO DAILY@0800 tab.chew 03/07/18 Metoprolol Tartrate 25 mg PO BID #60 tab 03/07/18 Ipratropium/Albuterol Sulfate [Duoneb] 3 ml INHALATION BID 04/03/18 Sennosides/Docusate Sodium [Senna-Docusate Sodium Tablet] 2 each PO BID 04/03/18 Clotrimazole 1 applic TOPICAL DAILY 06/13/18 Hydrocortisone 1% Crm 1 applic TOPICAL BID 06/13/18 Melatonin 10 mg PO QHS 06/13/18 Oxcarbazepine [Trileptal] 600 mg PO BID 06/13/18 Phenytoin Sodium Extended [Dilantin] 100 mg PO 4X/DAY 06/13/18 Ranitidine HCl [Zantac] 300 mg PO DAILY 06/13/18 Risperidone 0.25 mg PO DAILY 06/13/18 Ropinirole HCl [Requip] 2 mg PO DAILY 06/13/18 Tolterodine Tartrate [Detrol LA] 4 mg PO DAILY 06/13/18 Prednisone 40 mg PO DAILY 5 Days #10 tablet 06/19/18 The following prescriptions were given: Prednisone 40 mg PO DAILY 5 Days #10 tablet Primary Care Physician: Patel Veliz Chi, MD [Primary Care Provider] - Please follow up with your Primary Care Physician in: one week Test Results: Test results from this visit will be discussed in further detail at your follow-up appointment, if applicable. Proposed Discharge Date: 06/19/18 - with home health care 06/19/18 1412 <Electronically signed by Silva Greene MD> Date Silva Greene MD CC: Patel Veliz MD Signed BASIC METABOLIC Collected: 06/17/2018 Status: F Source: [place] PROFILE (BMP) 5:35 AM [facility] REPOSITORY TYPE CODE TESTS RESULT OUT OF RANGE REFERENCE UNITS LAB L501.0100 74-106 mg/dL High GLU 119 Result Comment: Fasting Glucose result from 100 to 125 mg/dL suggests IMPAIRED HOMEOSTASIS per A.D.A. criteria. Please note revised GLUCOSE reference range effective 2017. LAB L501.1000 7-18 mg/dL Normal BUN 12 LAB L501.1100 0.55-1.02 mg/dL Low CREAT,SERUM 0.37 Result Comment: The validity of the calculated GFR AND GFRAA in patients over 70 years has not been determined. Clinical correlation is essential. LAB L501.1110 >60 mL/min Normal EST GFR 185 Result Comment: Non- GFR Calc LAB L501.1115 >60 mL/min Normal EST GFR - AA 224 Result Comment: GFR Calc LAB L501.1255 ml/min Normal Estimated CRCL 48.45 LAB L501.1300 10-20 RATIO High BUN/CRE 32.6 LAB L501.2200 8.5-10 mg/dL Low .1 CA 7.6 LAB L501.5300 136-14 mmol/L Normal 5 NA 142 LAB L501.5600 3.5-5. mmol/L Normal 1 K 4.1 LAB L501.5900 98-107 mmol/L Normal CL 105 LAB L501.6100 21.0-3 mmol/L Normal 2.0 CO2 27.0 LAB L501.6200 5-15 Normal GAP 10 Performed By: #### L500.2500 #### [facility] [address] [facility] [facility] [place], [address] 12 LEAD ELECTROCARDIOGRAM Observed: 06/16/2018 Status: F Source: [place] 3:14 PM [facility] REPOSITORY [facility] Cardiovascular Services [address] [place] [address] 12 Lead EKG 06/13/18 1810 MR#: [id number] Acct: [id number] Name: XANDER RAMIREZ Rep #: [id number] : 1950 67 From: Saulo Moss MD Attending Dr: Abelardo Waldrop MD Status: ADM IN Ordering Dr: Lukasz Coto DO Date: 06/13/18 Location: U Sex: F C Admitted: 06/13/18 Test Reason : SOB Blood Pressure : / mmHG Vent. Rate : 107 BPM Atrial Rate : 107 BPM P-R Int : 140 ms QRS Dur : 084 ms QT Int : 322 ms P-R-T Axes : 085 079 050 degrees QTc Int : 429 ms Sinus tachycardia Confirmed by JAMES LEACH, SAULO ([id number]), website/blog editor GOPI RAMIREZ ([id number]) on 06/16/2018 3:13:53 PM Referred By: TL Confirmed By:SAULO MOSS MD 06/16/18 1513 Date Saulo Moss MD CC: Abelardo Waldrop MD; Patel Veliz MD; Lukasz Le Signed CBC W/DIFF, AUTOMATED Collected: 06/16/2018 Status: F Source: [place] 6:13 AM [facility] REPOSITORY TYPE CODE TESTS RESULT OUT OF RANGE REFERENCE UNITS LAB L100.1000 4.4-11.0 K/mm3 Normal WBC 5.0 LAB L100.1200 4.2-5.4 M/mm3 Normal RBC 4.26 LAB L100.1300 12.0-15.0 g/dl Normal HGB 13.2 LAB L100.1400 37-47 % Normal HCT 41.4 LAB L100.1500 81-99 fL Normal MCV 97.2 LAB L100.1600 27.0-32.0 pg Normal MCH 31.0 LAB L100.1700 32-36 g/gl Low MCHC 31.9 LAB L100.1810 11.6-14.6 % Normal RDW CV 14.4 LAB L100.1820 35.1-43.9 fl High RDW SD 50.0 LAB L100.1900 150-450 K/mm3 Normal PLT 157 LAB L100.2000 6.2-12.0 fl Normal MPV 9.1 LAB L100.2100 47-70 % High NEUT% 75.3 LAB L100.2200 19-41 % Low LY% 13.1 LAB L100.2300 0-10 % High MONO% 11.0 LAB L100.2400 0-5 % Normal EO% 0.0 LAB L100.2500 0-1 % Normal BASO% 0.4 LAB L100.2550 0.0-0.9 % Normal IM GRAN % 0.200 Result Comment: IG% - Immature Granulocytes (promyelocytes, myelocytes and metamyelocytes) > 1% indicates that a LEFT SHIFT is Present. LAB L100.2620 2.0-7.7 X10 3/uL Normal Absolute Neut 3.8 LAB L100.2720 0.83-4.51 X10 3/ul Low Absolute Lymph 0.66 Performed By: #### L100.0100 #### [facility] [address] [place], [place], [id number] BLOOD GASES BY CPS Collected: 06/16/2018 Status: F Source: [place] 1:30 AM [facility] REPOSITORY TYPE CODE TESTS RESULT OUT OF RANGE REFERENCE UNITS LAB L9000.9990 Normal BLD GAS TYPE ART LAB L9001.1000 Normal SITE R Radial LAB L9001.1010 Normal AISHA TEST POS LAB L9001.1050 O2 Normal Delivery Dev Vent Mask LAB L9001.1074 Normal FI02 40 LAB L9001.1104 Normal Results To HOSP LAB L9001.1105 Normal Time Given 115 LAB L9001.1110 7.35-7.45 Low pH - I-STAT 7.31 LAB L9001.1210 35-45 mmHg High pCO2 - ISTAT 55.1 LAB L9001.1310 75-100 mmHG Normal PO2 I-STAT 94 LAB L9001.2300 22-26 mmol/L High HCO3 ISTAT 27.8 LAB L9001.2400 -2 to +2 mmol/L BE Normal ISTAT 2 LAB L9001.2415 mmol/L Normal TOTAL CO2 29 ISTAT LAB L9001.2425 95-99 % Normal SO2 ISTAT 96 Performed By: #### L9000.0800 #### [facility] Point of Care [address] [place], [place] [address] BLOOD GASES BY CPS Collected: 06/15/2018 Status: F Source: [place] 3:29 PM [facility] REPOSITORY TYPE CODE TESTS RESULT OUT OF RANGE REFERENCE UNITS LAB L9000.9990 Normal BLD GAS TYPE ART LAB L9001.1000 L Normal SITE Brachial LAB L9001.1010 NA Normal AISHA TEST LAB L9001.1050 O2 Normal Delivery Dev Nasal Can LAB L9001.1055 /min Normal LPM 3.0 LAB L9001.1104 Normal Results To HOSP LAB L9001.1105 Normal Time Given 1525 LAB L9001.1110 7.35-7.45 Low pH - I-STAT 7.33 LAB L9001.1210 35-45 mmHg Normal pCO2 - ISTAT 44.2 LAB L9001.1310 75-100 mmHG Low 60 PO2 I-STAT LAB L9001.2300 22-26 mmol/L Normal HCO3 ISTAT 23.3 LAB L9001.2400 -2 to +2 mmol/L Low BE -3 ISTAT LAB L9001.2415 mmol/L 25 Normal TOTAL CO2 ISTAT LAB L9001.2425 95-99 % Low 88 SO2 ISTAT Performed By: #### L9000.0800 #### [facility] Point of Care [address] [place] [address] CHEST PA AND LATERAL Observed: 06/15/2018 Status: F Source: [place] 1:27 PM [facility] REPOSITORY [facility] Imaging Services [address] [place] [address] Chest PA and Lateral MR#: [id number] Acct: [id number] Name: XANDER RAMIREZ Rep #: [id number] : 1950 F 67 From: Jl Wise MD PCP: Jose Alfredo LEACH,Patel [facility] Status: ADM IN Study: Chest PA and Lateral Date of Exam: 06/15/18 Exam# [id number] Ordering Dr: Abelardo Waldrop MD STUDY: X-RAY CHEST REASON FOR EXAM: Female, 67 years old. TECHNIQUE: COMPARISON: June 13, 2018 FINDINGS: The lungs are clear and expanded heavy markings seen at the bases. There is no demonstrated pleural abnormality. Normal size heart. Normal mediastinum and denae. Normal visualized pulmonary arteries. Normal visualized aortic arch and descending thoracic aorta. Normal visualized thoracic spine. Normal visualized ribs, clavicles, and shoulders. There is no demonstrated abnormality of the visualized soft tissue structures of the upper abdomen. RAD/Chest PA and Lateral IMPRESSION: Heavy markings noted at the bases but no obvious consolidation or atelectasis no change noted since the study of June 13, 2018 Electronically Signed: Jl Wise, at 14:55 EST Tel , Service support , CC: Abelardo Waldrop MD; Patel Veliz MD Edge Burnisher: Signed PHENYTOIN (DILANTIN) Collected: 06/15/2018 Status: F Source: [place] LEVEL 12:20 PM [facility] REPOSITORY TYPE CODE TESTS RESULT OUT OF RANGE REFERENCE UNITS LAB L501.7700 10.0-20.0 mL Normal PHENYTOIN 16.8 Performed By: #### L501.7700 #### [facility] [address] [place], [address] BASIC METABOLIC Collected: 06/15/2018 Status: F Source: [place] PROFILE (BMP) 6:36 AM [facility] REPOSITORY TYPE CODE TESTS RESULT OUT OF RANGE REFERENCE UNITS LAB L501.0100 74-106 mg/dL High GLU 134 Result Comment: Fasting Glucose result greater than or equal to 126 mg/dL suggests DIABETES MELLITUS per A.D.A. criteria. Please note revised GLUCOSE reference range effective 2017. LAB L501.1000 7-18 mg/dL Low BUN 6 LAB L501.1100 0.55-1.02 mg/dL Low CREAT,SERUM 0.43 Result Comment: The validity of the calculated GFR AND GFRAA in patients over 70 years has not been determined. Clinical correlation is essential. LAB L501.1110 >60 mL/min Normal EST GFR 154 Result Comment: Non- GFR Calc LAB L501.1115 >60 mL/min Normal EST GFR - AA 187 Result Comment: GFR Calc LAB L501.1255 ml/min Normal Estimated CRCL 48.45 LAB L501.1300 10-20 RATIO Normal BUN/CRE 13.9 LAB L501.2200 8.5-10 mg/dL Low .1 CA 7.7 LAB L501.5300 136-14 mmol/L Normal 5 NA 141 LAB L501.5600 3.5-5. mmol/L Normal 1 K 3.7 Result Comment: Slight Hemolysis, Result may be falsely increased. LAB L501.5900 98-107 mmol/L High CL 109 LAB L501.6100 21.0-32.0 mmol/L Normal CO2 24.0 LAB L501.6200 5-15 Normal 8 GAP Performed By: #### L500.2500 #### [facility] [address] [place], [place], [address] CBC W/DIFF, AUTOMATED Collected: 06/14/2018 Status: F Source: [place] 5:40 AM [facility] REPOSITORY TYPE CODE TESTS RESULT OUT OF RANGE REFERENCE UNITS LAB L100.1000 4.4-11.0 K/mm3 Normal WBC 4.6 LAB L100.1200 4.2-5.4 M/mm3 Low RBC 3.74 LAB L100.1300 12.0-15.0 g/dl Low HGB 11.5 LAB L100.1400 37-47 % Normal HCT 37.2 LAB L100.1500 81-99 fL High MCV 99.5 LAB L100.1600 27.0-32.0 pg Normal MCH 30.7 LAB L100.1700 32-36 g/gl Low MCHC 30.9 LAB L100.1810 11.6-14.6 % Normal RDW CV 14.6 LAB L100.1820 35.1-43.9 fl High RDW SD 51.6 LAB L100.1900 150-450 K/mm3 Normal PLT 180 LAB L100.2000 6.2-12.0 fl Normal MPV 9.6 LAB L100.2100 47-70 % Normal NEUT% 69.8 LAB L100.2200 19-41 % Low LY% 18.3 LAB L100.2300 0-10 % High MONO% 11.1 LAB L100.2400 0-5 % Normal EO% 0.2 LAB L100.2500 0-1 % Normal BASO% 0.4 LAB L100.2550 0.0-0.9 % Normal IM GRAN % 0.200 Result Comment: IG% - Immature Granulocytes (promyelocytes, myelocytes and metamyelocytes) > 1% indicates that a LEFT SHIFT is Present. LAB L100.2620 2.0-7.7 X10 3/uL Normal Absolute Neut 3.2 LAB L100.2720 0.83-4.51 X10 3/ul Normal Absolute Lymph 0.84 Performed By: #### L100.0100, M100.638 #### [facility] [address] [place], [place], [address] BASIC METABOLIC Collected: 06/14/2018 Status: F Source: [place] PROFILE (BMP) 5:40 AM [facility] REPOSITORY TYPE CODE TESTS RESULT OUT OF RANGE REFERENCE UNITS LAB L501.0100 74-106 mg/dL High GLU 116 Result Comment: Fasting Glucose result from 100 to 125 mg/dL suggests IMPAIRED HOMEOSTASIS per A.D.A. criteria. Please note revised GLUCOSE reference range effective 2017. LAB L501.1000 7-18 mg/dL Low BUN 6 LAB L501.1100 0.55-1.02 mg/dL Low CREAT,SERUM 0.49 Result Comment: The validity of the calculated GFR AND GFRAA in patients over 70 years has not been determined. Clinical correlation is essential. LAB L501.1110 >60 mL/min Normal EST GFR 134 Result Comment: Non- GFR Calc LAB L501.1115 >60 mL/min Normal EST GFR - AA 162 Result Comment: GFR Calc LAB L501.1255 ml/min Normal Estimated CRCL 48.45 LAB L501.1300 10-20 RATIO Normal BUN/CRE 12.3 LAB L501.2200 8.5-10 mg/dL Low .1 CA 7.3 LAB L501.5300 136-14 mmol/L High 5 NA 147 LAB L501.5600 3.5-5. mmol/L Normal 1 K 5.0 LAB L501.5900 98-107 mmol/L High CL 114 LAB L501.6100 21.0-3 mmol/L Normal 2.0 CO2 27.0 LAB L501.6200 5-15 Normal GAP 6 Performed By: #### L500.2500 #### [facility] [address] [place], [place], [address] LACTIC ACID Collected: 06/13/2018 Status: F Source: [place] 11:46 PM [facility] REPOSITORY TYPE CODE TESTS RESULT OUT OF RANGE REFERENCE UNITS LAB L503.6005 0.4-2.0 mmol/L Normal LACTIC ACID 1.6 Performed By: #### L503.6005 #### [facility] [address] [place], [place], [address] TROPONIN-I Collected: 06/13/2018 Status: F Source: FR[place]AN 11:46 PM [facility] REPOSITORY Order Comment: 'TROP' Serial specimen #1, #2 or #3: 3 TYPE CODE TESTS RESULT OUT OF RANGE REFERENCE UNITS LAB L501.4010 <0.045 ng/mL Normal < 0.015 TROPONIN-I Result Comment: TROPONIN-I EXPECTED VALUES <0.045 Negative 0.045 - 0.590 Consistent with Cardiac Damage > OR = 0.600 Critical Value Not every elevated troponin is indicative of UT. These values should be used with clinical judgement in examining the patient's clinical picture for diagnosis. To establish a diagnosis of UT versus myocardial injury, there must be a demonstrated rise and/or fall in the troponin values, in addition to ischemic symptoms, EKG changes, new regional wall motion abnormality, and/or angiographical evidence. PLEASE NOTE: REFERENCE RANGES EDITED 17 Performed By: #### L501.4010 #### [facility] [address] [facility] [facility]. [place], [place], [id number] Observed: 06/13/2018 Status: F Source: VAN [place]UYS RESPIRATORY PANEL 11:10 PM [facility] MOLECULAR REPOSITORY Order Date: 06/13/18 Has pt arrived? Y RP PANEL Normal Reference Range = Not Detected Copy of report sent to Infection Control Printer [id number] 06/14/18 0950 LAN. RESULTS CALLED TO CHARISMA 06/14/18 0951 Maria Del Rosario Hinton. REPORT READ BACK BY STEPHANIE. ADENOVIRUS Not Detected HUMAN METAPHNEUMO Not Detected INFLUENZA A Not Detected INFLUENZA A (SUBTYPE H1) Not Detected INFLUENZA A (SUBTYPE H3) Not Detected INFLUENZA B Not Detected PARAINFLUENZA 1 Not Detected PARAINFLUENZA 2 Not Detected PARAINFLUENZA 3 Not Detected PARAINFLUENZA 4 Not Detected RHINOVIRUS Not Detected RSV A Not Detected RSV B Positive for RSV B by NAAT technology NAAT METHOD Testing was performed using nucleic acid amplification ORGANISM 1: RSV B Performed By: #### L100.0100, M100.638 #### [facility] [address] [facility] [facility] [facility] [place], [place], [address] HISTORY AND PHYSICAL Observed: 06/13/2018 Status: F Source: VAN NUYS EXAM 10:16 PM [facility] REPOSITORY [facility] Medical Records Department [address] [place] [address] History and Physical 06/13/181940 MR#: [id number] Acct: [id number] Name: XANDER RAMIREZ Rep #: [id number] : 1950 67 From: Yunior Heaton MD PCP: Jose Alfredo LEACH,Patel Garvey Status: ADM IN Y Location: [place] [address] Problem List (1) COPD with exacerbation Status: Acute (2) Severe sepsis Status: Acute (3) Community acquired pneumonia Status: Acute History of Present Illness Date of Admission: 06/13/18 Chief Complaint: Shortness of breath The patient is a 67 year old F with a significant history of degenerative degenerative disc disease; COPD; sleep apnea; depression; anxiety; hypertension who presented with 4-day history of progressively worsening shortness of breath that occurs at rest and increases with exertion. Associated with her symptoms is fever of 99-100F while at home. Also she reports chills and wheezing. At home she uses 2 L of nasal cannula at night. She reported that she uses the nighttime home oxygen for sleep apnea. However the last couple of days she increased her nasal cannula to 4 L of nasal cannula [id number]. She reports a productive cough of clear thick sputum. At emergency department her oxygen saturation was found to be 87% on 3 L. Reportedly within the last 1-2 weeks patient signed a contract with crisis for suicidal ideation. At the ED she reported to me that every now and then she has episodic suicidal ideation. She reported that her suicidal ideation peaked in March 2018 when her . She has a box printer and apparent times at home but then she insists that she does not intend to use these. She denies any active plan to hurt herself. At emergency department patient was found to have tachycardia; tachypnea temperature of 101.7. Lactic acid was 2.1. Calcium was 7.9 and her potassium was 3.3. At emergency department patient received ceftriaxone, azithromycin and potassium supplementation. Suicidal watch with a one-to-one sitter was started at the emergency department and a consult with Case Management for Mental Health was made. While admitted and on the floor she continued to express suicidal ideation to her Sitter. Past Medical History Past Medical History (Chronic Problems): Chronic Problems (Last Reviewed 06/13/18 @ 22:00 by Yunior Heaton MD) Tobacco use (Chronic) Generalized weakness (Chronic) Debility [...] (Chronic) Medical History: Medical History (Last Reviewed 06/13/18 @ 22:00 by Yunior Heaton MD) Acidosis (Acute) E87.2 Generalized weakness (Chronic) R53.1 [...] Recorded Albuterol Aerosols [Ventolin 2.5 mg INHALATION Q6H PRN 05/12/16 Surgical History: Surgical History (Last Reviewed 06/13/18 @ 22:00 by Yunior Heaton MD) History of right hip replacement (Acute) Z96.641 Broken ankle (Acute) S82.899A S/P laparoscopic cholecystectomy (Acute) Z90.49 S/P appendectomy (Acute) Z90.49 Surgical History: appendectomy, cholecystectomy, - - Fractured right ankle, carpal tunnel surgery, removal of teeth, right ovariectomy and fallopian tube removal. 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 Lives: Alone Smoking Status: Current every day smoker Alcohol: None - Denies - *Family History Maternal Family History: Family History (Last Reviewed 06/13/18 @ 22:00 by Yunior Heaton MD) Mother Diabetes Heart disease Hypertension CAD (coronary artery disease) CVA (cerebral vascular accident) History Items: Diabetes Paternal Family History: Family History (Last Reviewed 06/13/18 @ 22:00 by Yunior Heaton MD) Mother Diabetes Heart disease Hypertension CAD (coronary artery disease) CVA (cerebral vascular accident) History Items: Cancer - colon Sibling Family History: Family History (Last Reviewed 06/13/18 @ 22:00 by Yunior Heaton MD) Mother Diabetes Heart disease Hypertension CAD (coronary artery disease) CVA (cerebral vascular accident) History Items: No pertinent history Review of Systems Constitutional: Reports: Chills, Fever, Malaise. Denies: Weight Change HEENT: Denies: Head Aches, Sinus Congestion, Sinus Drainage Cardiovascular: Reports: Chest Pain. Denies: Palpitations Respiratory: Reports: Cough, Shortness of Breath. Denies: Shortness of breath at rest, Sputum production [...] Prophylaxis: None VTE Pharm Prophylaxis ordered?: Yes Patient Problems: Active and Suspected Problems (Last Reviewed 06/13/18 @ 22:00 by Yunior Heaton MD) Severe sepsis (Acute) Hypoxemia (Acute) Suicidal ideation (Acute) COPD with exacerbation (Acute) Severe sepsis (Acute) Community acquired pneumonia (Acute) - Physical Exam General: Alert, Oriented x3, Cooperative HEENT: Atraumatic, PERRLA, EOMI, Normocephalic Neck: Supple, No JVD, Negative Carotid Bruits Lungs: Wheezes Cardiovascular: No murmurs, Tachycardic Abdomen: Bowel Sounds Present, Soft, Non Tender Extremities: No edema, Capillary Refill Less than 3 Seconds Skin: No rashes, No breakdown Musculoskeletal: No Tenderness to Palpation of Joints or Extremities Neurological: Neuro grossly intact Psych/Mental Status: Anxious Vital Signs Temp Pulse Resp BP Pulse Ox 98.7 F 98 20 H 106/88 H 95 06/13/18 19:00 06/13/18 19:00 06/13/18 19:00 06/13/18 19:00 06/13/18 19:00 Oxygen Flow Rate (L/min) 3 Oxygen Delivery Method Nasal Cannula Weight: 72.3 kg Body Mass Index (BMI) 26.5 Microbiology Past 72 Hours 06/13/18 18:18 Influenza Types A,B Direct FA (JASWANT) - Final Mucosa - Nasopharyngeal Laboratory Tests Past 24 Hrs WBC 5.8 RBC 4.31 Hgb 13.2 Hct 41.8 MCV 97.0 MCH 30.6 MCHC 31.6 L RDW 14.6 RDW Differential 52.0 H WBC RBC Hgb Hct MCV MCH MCHC RDW RDW Differential Plt Count MPV Immature Gran % (Auto) WBC RBC Hgb Hct MCV MCH MCHC RDW RDW Differential Plt Count MPV Immature Gran % (Auto) Neut % (Auto) Assessment/Plan All Active Problems (Last Reviewed 06/13/18 @ 22:00 by Yunior Heaton MD) UTI (urinary tract infection) (Acute) Severe sepsis (Acute) Hypoxemia (Acute) Suicidal ideation (Acute) COPD with exacerbation (Acute) Severe sepsis (Acute) Community acquired pneumonia (Acute) SIRS (systemic inflammatory response syndrome) (Acute) Viral illness (Acute) History of right hip replacement (Acute) [...] falls (Resolved) The patient is a 67 year old F with a significant history of degenerative degenerative disc disease; COPD; sleep apnea; depression; anxiety; hypertension who presented with 4-day history of progressively worsening shortness of breath; productive cough and found to meet SIRS criteria; also patient has suicidal ideation. Severe sepsis Chest x-ray was unremarkable. However with tachycardia; tachypnea; fever and productive cough it is probable that patient has severe sepsis due to pneumonia. There is no infiltrates on radiographic examination. This may be that the patient's is dehydrated Additional diagnoses include acute COPD exacerbation; viral illness. Lactic acid: 2.1 RR 28 at admission Tachycardia highest 109 at admission Oxygen saturation: Reportedly 87% on 3 L Blood culture 2 is pending Chest x-ray: Independently reviewed showed hyperinflation without any acute cardiopulmonary syndrome. Respiratory Gram stain and culture pending Antibiotics: Ceftriaxone and azithromycin was started at emergency department. Importantly on patient allergy is anaphylaxis to penicillin but she received ceftriaxone at emergency departments without any adverse effect. IV hydration with normal saline was started at emergency department. Because of hypokalemia; and hyperchloremia we will start patient on normal saline with 20 of potassium at 100 MLS per hour for 1 L. DuoNeb scheduled. Albuterol as needed Legionella antigen screen and Strep antigen ordered Rapid Influenza screen was negative. Will order comprehensive viral panel Mucinex ordered. Patient had chest pain which likely is pleuritic from her pneumonia/COPD will trend troponin and place patient on telemetry. COPD exacerbation DuoNeb and as needed albuterol as above. Home inhaled corticosteroid continued. Suicidal ideation Case management was consulted from the emergency department. 'Crisis' to see patient when she is medically cleared. Hypokalemia On admission her potassium was 3.3. Repleted emergency department Because of concomitant hyperchloremia half-normal saline normal saline with 20 of potassium infusion was ordered. Trend BMP. Pseudo-hypocalcemia On her admission her calcium was 7.9 Her albumin was 3.5. Corrected calcium is 8.3; which is appropriate. Tobacco abuse Counseled Report that she is unable to tolerate nicotine patch Hypertension Although hypertension is listed on the medical profile. She denies any history of hypertension. Her blood pressure is not within goal at this time. Trend blood pressures Sleep apnea Patient reports using nasal cannula at 07/29 because of sleep apnea. oxygen per nasal cannula to maintain oxygen saturation above 90% ordered. DVT prophylaxis Subcutaneous Lovenox ordered. Code Visit Inpatient E AND M: 37932 Init Hosp L3 06/13/18 2216 <Electronically signed by Yunior Heaton MD> Date Yunior Heaton MD Cosigner Signature: Date (if applicable) CC: Yunior Heaton MD; Patel Veliz MD Signed Observed: 06/13/2018 Status: P Source: [place] CULTURE, SPUTUM 9:16 PM [facility] REPOSITORY Order Date: 06/13/18 Has pt arrived? Y Gram Stain Insufficient quant. Performed By: #### M100.0800 #### [facility] [address] [place], [address] URINE DRUG SCREEN Collected: 06/13/2018 Status: F Source: [place]AN (VISTA) 9:11 PM [facility] REPOSITORY TYPE CODE TESTS RESULT OUT OF [...] Normal NEGATIVE Performed By: #### L505.5000 #### [facility] [address] [facility] [place], [address] TROPONIN-I Collected: 06/13/2018 Status: F Source: [place] 9:10 PM [facility] REPOSITORY Order Comment: 'TROP' Serial specimen #1, #2 or #3: 2 TYPE CODE TESTS RESULT OUT OF RANGE REFERENCE UNITS LAB L501.4010 <0.045 ng/mL Normal < 0.015 TROPONIN-I Result Comment: TROPONIN-I EXPECTED VALUES <0.045 Negative 0.045 - 0.590 Consistent with Cardiac Damage > OR = 0.600 Critical Value Not every elevated troponin is indicative of UT. These values should be used with clinical judgement in examining the patient's clinical picture for diagnosis. To establish a diagnosis of UT versus myocardial injury, there must be a demonstrated rise and/or fall in the troponin values, in addition to ischemic symptoms, EKG changes, new regional wall motion abnormality, and/or angiographical evidence. PLEASE NOTE: REFERENCE RANGES EDITED 17 Performed By: #### L501.4010 #### [facility] [address] [place], [address] EMERGENCY DEPARTMENT Observed: 06/13/2018 Status: F Source: [place] SUMMARY 7:54 PM [facility] REPOSITORY [facility] Medical Records Department [address] [place] [id number] Emergency Department Summary 06/13/18 1801 MR#: [id number] Acct: [id number] Name: XANDER RAMIREZ Rep #: [id number] : 1950 67 From: Lukasz Verde PCP: Jose Alfredo LEACH,[employer] Status: REG ER - ER Visit Summary Date of Service: 06/13/18 Chief Complaint: Dyspnea History of Present Illness: The patient is a 67 F brought in by EMS from home worsening dyspnea for the past 4 days. Productive sputum, subjective fever, chills, sweats. No chest pains. History of COPD on chronic 2 L of oxygen. Reports wheezing. Status post 2 rounds aerosols by EMS with improvement of wheezing. No vomiting or diarrhea. No urinary symptoms. Reported by nursing, patient was suicidal ideations over the past 2 weeks. Patient history of anxiety and depression, reports that her parents and spouse are not alive. Her only child is 41. She reports there is no need to be around. She has been seen by [facility] and has a safety contract with him the past 2 weeks. Reported to nursing that she has a box printer and nose had a use it. During my questioning, she denies these symptoms. Physical Examination: General: Alert and oriented 3, Speaking in almost full sentences HEENT: Normocephalic, atraumatic. Moist mucosa membranes Neck: supple, nontender. Cardiovascular: Regular tachycardic rate and rhythm, no murmurs Respiratory: Normal breath sounds, symmetric, no distress Abdomen: Soft, nontender, nondistended Extremities: Nontender, minimum edema, pulses intact 4 Neuro: no focal neurological deficits. Psych: Cooperative, denies SI on my exam. Test Results: White count 5.8 hemoglobin 13.2. Potassium 3.3. Creatinine 0.66 INR 1.1. Influenza negative. Lactic acid 2.1. Blood cultures x2 pending. Urine pending. Alcohol negative. Tox screen pending. Chest x-ray 2 views negative. Emergency Department Course and Treatment: Patient with temp of 101.7, tachycardic, mild tachypnea take triage. Patient O2 was 87% on my initial evaluation. She stable on 3 L of oxygen 93%. Sepsis workup initiated. Due to reported comments to nursing on arrival with SI, suicide precautions will be placed. Currently no wheezing on exam. Reported wheezing prior to arrival we will give Solu-Medrol for COPD concerns. Will start antibiotics for concerns for clinical pneumonia. Results labs potassium 3.3, orally placed. She is on potassium supplements at home, however no diuretics are seen her medications. Influenza negative. Chest x-ray negative. Blood and urine cultures pending. Sputum culture pending. Fever of 101.7 productive sputum, concern for clinical pneumonia. O2 currently stable on 3 L. Lactic acid returned at 2.1, she is given fluid replacement according to the sepsis criteria. Blood pressure is stable. With suicidal ideations, alcohol negative tox screen pending. Discussed with hospitalist for admission for her hypoxemia. Treatment Plan: [] Disposition: Admission Impression: 1. Severe sepsis 2. Clinical pneumonia 3. History of COPD 4. Hypokalemia 5. Suicidal ideation This note was generated with nDreamsation software. It may contain incorrect words, spelling, and punctuation that were not noted in review of the chart prior to signing ED Disposition - Plan for ED Patient: Disposition: Acute Care Hospital [facility] Chief Complaint: Shortness of Breath Diagnosis: Severe sepsis, clincal pneumonia, COPD (chronic obstructive pulmonary disease), Hypoxemia, Suicidal ideation Referrals: Patel Veliz Chi, MD [Primary Care Provider] - What to do if you have Problems For any increased pain, shortness of breath, bleeding, nausea or vomiting, chest pain, or any unexpected problems, contact your Primary Care Provider. Call [facility] ([phone]) or report to the closest Emergency Room. Call 911 if necessary. 06/13/181953 <Electronically signed by Lukasz Verde> Date Lukasz Verde Cosigner Signature (If Indicated): Date CC: Patel Veliz MD URINALYSIS, COMPLETE Collected: 06/13/2018 Status: F Source: [place] 7:08 PM [facility] REPOSITORY Order Comment: Order Date: 06/13/18 Has pt arrived? Y How was Urine Obtained? 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 TYPE CODE TESTS RESULT OUT OF RANGE REFERENCE UNITS LAB L400.3000 Yellow COLOR Normal Yellow LAB L400.3050 Clear Normal CLARITY Clear LAB L400.3200 Normal mg/dl Normal GLUCOSE, UR Normal LAB L400.3300 Negative mg/dL High BILIRUBIN URINE 6 Result Comment: YCOLOR OF URINE MAY AFFECT DIPSTICK RESULTS. LAB L400.3400 Negative mg/dl Normal KETONE UR Negative LAB L400.3465 1.002-1.030 Normal SP.GR. DIPSTX 1.010 LAB L400.3550 5.0 - 8.0 pH Normal UR 6.5 LAB L400.3600 Negative mg/dl Normal PROT DIPSTX Negative LAB L400.3700 Normal mg/dl Normal UROBILI Normal LAB L400.3750 Negative Normal NITRITE UR Negative LAB L400.3780 Negative /ul High OCCULT 10 BLOOD-UR LAB L400.3800 Negative /ul High LEUK ESTERASE 25 LAB L400.4050 0-5 /hpf Normal WBC 0 SEEN LAB L400.4100 0-5 /hpf Normal RBC-UA 0 SEEN LAB L400.4150 5-10 /hpf Normal SQUAM EPI 10-25 SEEN LAB L400.4300 None Seen /hpf Normal BACTERIA 0 SEEN LAB L400.4350 <or=2+ /hpf Normal MUCUS, URINE 0 SEEN Performed By: #### L400.0001 #### [facility] [address] [facility]. [place], [place], [id number] Observed: 06/13/2018 Status: F Source: [place] LEGIONELLA ANTIGEN 7:08 PM [facility] URINE REPOSITORY Specimen Source: URINE, CLEAN CATCH Legionella, UR Legionella Antigen result interpretation: Negative Presumptive negative for Legionella pneumophila serogroup 1 antigen in urine, suggesting no recent or current infection. Legionella Ag, Urine Negative (See interpretation below) Performed By: #### M300.4500 #### [facility] [address] [place], [place], [address] STREP Observed: 06/13/2018 Status: F Source: [place] PNEUMONIAE ANTIG(UR,CSF) 7:08 PM [facility] REPOSITORY S pneumo Ag URINE INTERPRETATION Negative Urine Presumptive negative for pneumococcal pneumonia, suggesting no current or recent pneumococcal infection. Infection due to S pneumoniae cannot be ruled out since the antigen present in the sample may be below the detection limit of the test. Strep pneumo Test Negative URINE (See interpretation below) Performed By: #### M300.4600 #### [facility] [address] [place], [address] Observed: 06/13/2018 Status: F Source: [place] CULTURE, URINE 7:08 PM [facility] REPOSITORY Order Date: 06/13/18 Has pt arrived? Y Urine Culture ORGANISM 1: Mixed Gram Positive Organisms [place] Count 1000-10,000 MIX CULTURE Mixed contaminants. Submit a new specimen if indicated. Performed By: #### M100.0650 #### [facility] [address] [place], [address] TROPONIN-I Collected: 06/13/2018 Status: F Source: [place] 6:26 PM [facility] REPOSITORY TYPE CODE TESTS RESULT OUT OF RANGE REFERENCE UNITS LAB L501.4010 <0.045 ng/mL Normal < 0.015 TROPONIN-I Result Comment: TROPONIN-I EXPECTED VALUES <0.045 Negative 0.045 - 0.590 Consistent with Cardiac Damage > OR = 0.600 Critical Value Not every elevated troponin is indicative of UT. These values should be used with clinical judgement in examining the patient's clinical picture for diagnosis. To establish a diagnosis of UT versus myocardial injury, there must be a demonstrated rise and/or fall in the troponin values, in addition to ischemic symptoms, EKG changes, new regional wall motion abnormality, and/or angiographical evidence. PLEASE NOTE: REFERENCE RANGES EDITED 17 Performed By: #### L501.4010 #### [facility] [address] [place], [address] Observed: 06/13/2018 Status: F Source: [place] CULTURE, BLOOD (WB) 6:24 PM [facility] REPOSITORY LAC BC No growth in 5 days. Performed By: #### M200.1000 #### [facility] [address] [place], [address] Observed: 06/13/2018 Status: F Source: [place] INFLUENZA A+B (RAPID 6:18 PM [facility]) REPOSITORY Order Date: 06/13/18 Has pt arrived? Y FLU A/B Rapid Negative test results should be confirmed with FLU PANEL MOLECULAR if indicated. Influenza Ag, Direct Presumptive NEGATIVE for Influenza A/B Antigen (See Note) Performed By: #### M101.0101 #### [facility] [address] [place], [place], [address] CBC W/DIFF, AUTOMATED Collected: 06/13/2018 Status: F Source: [place] 6:12 PM [facility] REPOSITORY TYPE CODE TESTS RESULT OUT OF RANGE REFERENCE UNITS LAB L100.1000 4.4-11.0 K/mm3 Normal WBC 5.8 LAB L100.1200 4.2-5.4 M/mm3 Normal RBC 4.31 LAB L100.1300 12.0-15.0 g/dl Normal HGB 13.2 LAB L100.1400 37-47 % Normal HCT 41.8 LAB L100.1500 81-99 fL Normal MCV 97.0 LAB L100.1600 27.0-32.0 pg Normal MCH 30.6 LAB L100.1700 32-36 g/gl Low MCHC 31.6 LAB L100.1810 11.6-14.6 % Normal RDW CV 14.6 LAB L100.1820 35.1-43.9 fl High RDW SD 52.0 LAB L100.1900 150-450 K/mm3 Normal PLT 186 LAB L100.2000 6.2-12.0 fl Normal MPV 9.0 LAB L100.2100 47-70 % High NEUT% 71.6 LAB L100.2200 19-41 % Low LY% 17.4 LAB L100.2300 0-10 % Normal MONO% 7.2 LAB L100.2400 0-5 % Normal EO% 3.1 LAB L100.2500 0-1 % Normal BASO% 0.5 LAB L100.2550 0.0-0.9 % Normal IM GRAN % 0.200 Result Comment: IG% - Immature Granulocytes (promyelocytes, myelocytes and metamyelocytes) > 1% indicates that a LEFT SHIFT is Present. LAB L100.2620 2.0-7.7 X10 3/uL Normal Absolute Neut 4.2 LAB L100.2720 0.83-4.51 X10 3/ul Normal Absolute Lymph 1.01 Performed By: #### L100.0100 #### [facility] [address] [place], [address] PROTHROMBIN TIME W/INR Collected: 06/13/2018 Status: F Source: [place] 6:12 PM [facility] REPOSITORY TYPE CODE TESTS RESULT OUT OF RANGE REFERENCE UNITS LAB L300.4150 11.7-14.9 SECONDS Normal PROTIME 13.8 LAB L300.4200 Normal INR 1.1 Performed By: #### L300.3900, L300.4310 #### [facility] [address] [place], [address] PARTIAL THROMBOPLAST Collected: 06/13/2018 Status: F Source: [place] TIME 6:12 PM [facility] REPOSITORY TYPE CODE TESTS RESULT OUT OF RANGE REFERENCE UNITS LAB L300.4310 24.1-36.2 Seconds Normal PTT 31.0 Performed By: #### L300.3900, L300.4310 #### [facility] [address] [place], [address] COMPREHENSIVE METABOLIC Collected: 06/13/2018 Status: F Source: [place] PROFIL 6:12 PM [facility] REPOSITORY TYPE CODE TESTS RESULT OUT OF RANGE REFERENCE UNITS LAB L501.0100 74-106 mg/dL Normal GLU 95 Result Comment: Please note revised GLUCOSE reference range effective 2017. LAB L501.1000 7-18 mg/dL Low BUN 6 LAB L501.1100 0.55-1.02 mg/dL Normal CREAT,SERUM 0.66 Result Comment: The validity of the calculated GFR AND GFRAA in patients over 70 years has not been determined. Clinical correlation is essential. LAB L501.1110 >60 mL/min Normal EST GFR 94 Result Comment: Non- GFR Calc LAB L501.1115 >60 mL/min Normal EST GFR - AA 114 Result Comment: GFR Calc LAB L501.1255 ml/min Normal Estimated CRCL 48.45 LAB L501.1300 10-20 RATIO Low BUN/CRE 9.0 LAB L501.1500 6.4-8. g/dL Normal 2 T PROT 7.1 LAB L501.1800 3.2-5. g/dL Normal 0 ALB 3.5 LAB L501.1950 2.2-4. g/dL Normal 2 GLOB 3.6 LAB L501.2000 0.9-2. RATIO Normal 4 A/G 1.0 LAB L501.2200 8.5-10 mg/dL Low .1 CA 7.9 LAB L501.4100 15-37 U/L Low AST 14 LAB L501.4305 45-117 U/L Normal ALK P 89 LAB L501.4405 13-56 U/L Normal ALT 18 LAB L501.4600 0.20-1 mg/dL Normal .00 T BILI 0.20 LAB L501.5300 136-14 mmol/L Normal 5 NA 143 LAB L501.5600 3.5-5. mmol/L Low 1 K 3.3 LAB L501.5900 98-107 mmol/L High CL 108 LAB L501.6100 21.0-3 mmol/L Normal 2.0 CO2 27.0 LAB L501.6200 5-15 Normal GAP 8 Performed By: #### L500.4050 #### [facility] [address] [place], [place], [address] ALCOHOL, BLOOD Collected: 06/13/2018 Status: F Source: [place] (MEDICAL)-SERUM 6:12 PM [facility] REPOSITORY TYPE CODE TESTS RESULT OUT OF RANGE REFERENCE UNITS LAB L501.9100 mg/dL Normal SERUM 4.0 ETOH Result Comment: The serum:whole blood ethanol ratio is approximately 1.14 and varies slightly with hematocrit. Medical Alcohol reference interval and critical value in non-tolerant individuals; 50 - 100 Impairment 100 Intoxication 100 - 250 Severe Poisoning 250 - 400 Deep/possible fatal coma Performed By: #### L501.9100 #### [facility] [address] [place], [address] LACTIC ACID Collected: 06/13/2018 Status: F Source: [place] 6:12 PM [facility] REPOSITORY Order Comment: Yes/No query for Sepsis Lactate Rule Y TYPE CODE TESTS RESULT OUT OF REFERENCE UNITS RANGE LAB L503.6005 0.4-2.0 mmol/L High LACTIC ACID 2.1 Result Comment: Critical Result(s) Called at: 19:44:02 06/13/2018 by: [facility] Performed By: #### L503.6005 #### [facility] [address] [place], [address] PHENYTOIN (DILANTIN) Collected: 06/13/2018 Status: F Source: [place] LEVEL 6:12 PM [facility] REPOSITORY TYPE CODE TESTS RESULT OUT OF REFERENCE UNITS RANGE LAB L501.7700 10.0-20.0 mL High alert PHENYTOIN 21.1 Result Comment: Critical Result(s) Called at: 00:25:16 06/14/2018 by: JONH GRAMAJO TO Jennifer GOMEZ Performed By: #### L501.7700 #### [facility] [address] [place], [address] Observed: 06/13/2018 Status: F Source: [place] CULTURE, BLOOD (WB) 6:12 PM [facility] REPOSITORY BC No growth in 5 days. Performed By: #### M200.1000 #### [facility] [address] [place], [address] CHEST 1 VIEW Observed: 06/13/2018 Status: F Source: [place] (PORTABLE) 5:58 PM [facility] REPOSITORY [facility] Imaging Services [address] [place] [address] Chest 1 View (Portable) MR#: [id number] Acct: [id number] Name: XANDER RAMIREZ Rep #: [id number] : 1950 F 67 From: Alfredo Mills MD PCP: Jose Alfredo LEACH,Patel Garvey Status: REG ER Study: Chest 1 View (Portable) Date of Exam: 06/13/18 Exam# [id number] Ordering Dr: Lukasz Coto DO STUDY: X-RAY CHEST REASON FOR EXAM: Female, 67 years old. Cough TECHNIQUE: Frontal view of the chest COMPARISON: 05/19/2018 FINDINGS: The lungs are hyperinflated, but clear. There are no pleural effusions. There is no pneumothorax. The heart is normal in size. The visualized osseous structures are within normal limits. RAD/Chest 1 View (Portable) IMPRESSION: No acute thoracic pathology. Electronically Signed: Alfredo Mills, at 19:19 EST Tel , Service support , CC: Patel Veliz MD; Lukasz Coto Edge Burnisher: Signed CBC W/DIFF, AUTOMATED Collected: 06/01/2018 Status: F Source: [place] 4:53 PM [facility] REPOSITORY TYPE CODE TESTS RESULT OUT OF [...] Lymph 1.94 Performed By: #### L100.0100 #### [facility] [address] [place], [address] COMPREHENSIVE METABOLIC Collected: 06/01/2018 Status: F Source: [place] [facility] 4:53 PM [facility] REPOSITORY TYPE CODE TESTS RESULT OUT OF [...] 9 Performed By: #### L500.4050, L501.9520 #### [facility] [address] [place], [place], [id number] THYROID STIM HORMONE Collected: 06/01/2018 Status: F Source: [place] (TSH) 4:53 PM [facility] REPOSITORY TYPE CODE TESTS RESULT OUT OF RANGE REFERENCE UNITS LAB L501.9520 0.358-3.74 uIU/mL Normal TSH 1.00 Performed By: #### L500.4050, L501.9520 #### [facility] [address] [place], [address] PHENYTOIN (DILANTIN) Collected: 06/01/2018 Status: F Source: [place] LEVEL 4:53 PM [facility] REPOSITORY Order Comment: Time Medication is to be Given? 0800 TYPE CODE TESTS RESULT OUT OF REFERENCE UNITS RANGE LAB L501.7700 10.0-20.0 mL Low PHENYTOIN 0.9 Performed By: #### L501.7700, L501.8500 #### [facility] [address] [place], [place], [address] PHENOBARBITAL Collected: 06/01/2018 Status: F Source: [place] 4:53 PM [facility] REPOSITORY Order Comment: Time Medication is to be Given? 0800 TYPE CODE TESTS RESULT OUT OF RANGE REFERENCE UNITS LAB L501.8500 10.0-40.0 ug/mL Normal PHENOBARB 12.4 Performed By: #### L501.7700, L501.8500 #### [facility] [address] [place], [address] Observed: 05/19/2018 Status: F Source: [place] RESPIRATORY PANEL 1:45 PM [facility] MOLECULAR REPOSITORY RP PANEL ADENOVIRUS Not Detected [...] acid amplification Performed By: #### M100.638 #### [facility] [address] [place], [address] CHEST PA AND LATERAL Observed: 05/19/2018 Status: F Source: [place] 1:27 PM [facility] REPOSITORY [facility] Imaging Services [address] [place] [address] Chest PA and Lateral MR#: [id number] Acct: [id number] Name: XANDER RAMIREZ Rep #: [id number] : 1950 F 67 From: Jerel Hall MD PCP: Patel Veliz MD, Chi Status: REG CLI Study: Chest PA and Lateral Date of Exam: 05/19/18 Exam# [id number] Ordering Dr: Patel Veliz MD HISTORY: SOB [...] Service support , CC: Patel Veliz MD Edge Burnisher: Signed SPINE LUMBAR Observed: 04/26/2018 Status: F Source: [place] (ROUTINE) 3:38 PM [facility] REPOSITORY [facility] Imaging Services [address] [place] [address] Spine Lumbar (Routine) MR#: [id number] Acct: [id number] Name: XANDER RAMIREZ Rep #: [id number] : 1950 F 67 From: Dexter Zavaleta MD PCP: Jose Alfredo LEACH,Patel Chi Status: REG CLI Study: Spine Lumbar (Routine) Date of Exam: 04/26/18 Exam# [id number] Ordering Dr: Georgiana Andujar MD STUDY: MRI [...] CC: Georgiana Andujar MD; Patel Veliz MD Edge Burnisher: Signed CBC WITH PLATELET AND Collected: 04/10/2018 Status: F [facility] REPOSITORY TYPE CODE TESTS RESULT OUT [...] METABOLIC PANEL Collected: 04/10/2018 Status: F Source: [facility] 5:10 [facility] REPOSITORY TYPE CODE TESTS RESULT OUT [...] OXCARBAZEPINE METABOLITE Collected: 04/10/2018 Status: F Source: [facility] 5:10 AM [facility] REPOSITORY TYPE CODE TESTS RESULT OUT OF REFERENCE UNITS RANGE LAB 9883D 3-35 ug/mL Oxcarbazepine Metabolite 20 Result Comment: INTERPRETIVE INFORMATION: Oxcarbazepine Therapeutic range: 3-35 ug/mL. Toxic: Greater than 40 ug/mL This test measures monohydroxyoxcarbazepine (MHD). Adverse effects may include dizziness, fatigue, nausea, headache, somnolence, ataxia and tremor. Performed by [facility], [address] [place] [id number] [email or web address], Angel Correa MD - Lab. Director EMERGENCY DEPARTMENT Observed: 04/07/2018 Status: F Source: [place] SUMMARY 8:24 AM [facility] REPOSITORY [facility] Medical Records Department [address] [place] [address] Emergency Department Summary 04/02/18 2329 MR#: [id number] Acct: [id number] Name: XANDER RAMIREZ Rep #: [id number] : 1950 67 From: Thai Alfaro DO PCP: Jose Alfredo LEACH,Patel Garvey Status: DEP [...] Suicidal gesture This note was generated with nDreamsation software. It may contain incorrect words, spelling, [...] by crisis. Patient will be transferred to [facility]. Disposition: [] Impression: [] This note was generated with Alo7 dictation software. It may contain incorrect words, [...] your Primary Care Provider. Call [facility] ([phone]) or report to the closest Emergency Room. Call 911 if necessary. 04/07/18 0824 <Electronically signed by Thai Alfaro DO> Date Thai Alfaro DO 04/03/18 0955<Electronically signed by Harley Garcia MD> Cosigner Signature (If Indicated): Date Harley Garcia MD CC: Patel Veliz MD 12 LEAD ELECTROCARDIOGRAM Observed: 04/06/2018 Status: F Source: [place] 11:12 AM [facility] REPOSITORY [facility] Cardiovascular Services [address] [place] [address] 12 Lead EKG 04/02/18 1859 MR#: [id number] Acct: [id number] Name: XANDER RAMIREZ Rep #: [id number] : 1950 67 From: Saulo Moss MD [...] Abnormal ECG Confirmed by JAMES LEACH, SAULO ([id number]), website/blog editor GOPI RAMIREZ ([id number]) on 04/06/2018 11:11:41 AM Referred By: KARYNA Confirmed By:SAULO MOSS MD 04/06/18 1111 Date Saulo Moss MD CC: Thai Alfaro DO; Harley Garcia MD; Patel Veliz MD Signed PHENOBARBITAL LEVEL Collected: 04/04/2018 Status: F Source: [facility] 5:50 AM [facility] REPOSITORY TYPE CODE TESTS RESULT OUT OF REFERENCE UNITS RANGE LAB PHENB 10.0-30.0 ug/mL Phenobarbital 13.1 PHENYTOIN LEVEL Collected: 04/04/2018 Status: F Source: [facility] 5:50 AM [facility] REPOSITORY TYPE CODE TESTS RESULT OUT OF REFERENCE UNITS RANGE LAB PTN1 10.0-20.0 ug/mL Low Phenytoin 3.9 LIPID PANEL Collected: 04/04/2018 Status: F Source: [facility] 5:44 AM [facility] REPOSITORY TYPE CODE TESTS RESULT OUT [...] T3 TOTAL Collected: 04/04/2018 Status: F Source: [facility] 5:44 AM [facility] REPOSITORY TYPE CODE TESTS RESULT OUT OF RANGE REFERENCE UNITS LAB T3 0.80-2.00 ng/mL T3 Total 1.00 THYROXINE (T4) Collected: 04/04/2018 Status: F Source: [facility] 5:44 AM [facility] REPOSITORY TYPE CODE TESTS RESULT OUT OF REFERENCE UNITS RANGE LAB T4 4.5-11.7 ug/dL Thyroxine (T4) 5.1 TSH W/OUT REFLEX Collected: 04/04/2018 Status: F Source: [facility] 5:44 AM [facility] REPOSITORY TYPE CODE TESTS RESULT OUT OF REFERENCE UNITS RANGE LAB TSH 0.270-4.20 uIU/mL TSH w/out 1.040 Reflex VITAMIN D Collected: 04/04/2018 Status: F Source: [facility] 5:44 AM [facility] REPOSITORY TYPE CODE TESTS RESULT OUT OF REFERENCE UNITS RANGE LAB VITD 30.0-100.0 ng/mL Low VITAMIN D 18.2 Result Comment: (<20 ng/mL) Deficiency This assay accurately quantifies the sum of vitamin D3, 25- Hydroxy and vitamin D2, 25-Hyroxy. 12 LEAD ELECTROCARDIOGRAM Observed: 04/03/2018 Status: F Source: [place] 3:40 PM [facility] REPOSITORY [facility] Cardiovascular Services [address] [place] [address] 12 Lead EKG 03/29/18 1830 MR#: [id number] Acct: [id number] Name: XANDER RAMIREZ Rep #: [id number] : 1950 67 From: Tank Hernandez MD [...] Normal sinus rhythm Normal ECG Confirmed by MARY LEACH, TANK ([id number]), website/blog editor GOPI RAMIREZ ([id number]) on 04/03/2018 3:40:17 PM Referred By: LD Confirmed By:TANK HERNANDEZ MD 04/03/18 1540 Date Tank Hernandez MD CC: Roopa Victor MD; Patel Veliz MD Signed CHEST 1 VIEW Observed: 04/03/2018 Status: F Source: [place] (PORTABLE) 4:20 AM [facility] REPOSITORY [facility] Imaging Services [address] [place] [address] Chest 1 View (Portable) MR#: [id number] Acct: [id number] Name: XANDER RAMIREZ Rep #: [id number] : 1950 F 67 From: Merrick Tidwell MD PCP: Patel Veliz MD, Chi Status: REG ER Study: Chest 1 View (Portable) Date of Exam: 04/03/18 Exam# [id number] Ordering Dr: Ang Bhatt MD STUDY: X-RAY [...] CC: ANG BHATT MD; Patel Veliz MD Edge Burnisher: Signed URINE DRUG SCREEN Collected: 04/02/2018 Status: F Source: [place] (VISTA) 7:10 PM [facility] REPOSITORY TYPE CODE TESTS RESULT OUT OF [...] Normal NEGATIVE Performed By: #### L505.5000 #### [facility] [address] [place], [place], [address] URINALYSIS, COMPLETE Collected: 04/02/2018 Status: F Source: [place] 7:10 PM [facility] REPOSITORY Order Comment: How was Urine Obtained? 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 TYPE CODE TESTS RESULT OUT [...] 0 SEEN Performed By: #### L400.0001 #### [facility] [address] [facility] [place], [place], [address] BRAIN/HEAD WITHOUT Observed: 04/02/2018 Status: F Source: [place] CONTRAST 6:31 PM [facility] REPOSITORY [facility] Imaging Services [address] [place] [address] [place] [address] Brain/Head without Contrast MR#: [id number] Acct: [id number] Name: XANDER RAMIREZ Rep #: [id number] : 1950 F 67 From: Gabby Medina MD PCP: Patel Veliz MD, Chi Status: REG ER Study: Brain/Head without Contrast Date of Exam: 04/02/18 Exam# [id number] Ordering Dr: Thai Alfaro DO STUDY: CT [...] CC: Thai Alfaro DO; Patel Veliz MD Edge Burnisher: Signed CBC W/DIFF, AUTOMATED Collected: 04/02/2018 Status: F Source: [place] 6:00 PM [facility] REPOSITORY TYPE CODE TESTS RESULT OUT OF [...] Lymph 2.41 Performed By: #### L100.0100 #### [facility] [address] [place], [address] ALCOHOL, BLOOD Collected: 04/02/2018 Status: F Source: [facility] ([facility] 6:00 PM [facility] REPOSITORY TYPE CODE TESTS RESULT OUT OF [...] fatal coma Performed By: #### L501.9100 #### [facility] [address] [place], [place], [address] COMPREHENSIVE METABOLIC Collected: 04/02/2018 Status: F Source: [place] [place] 6:00 PM [facility] REPOSITORY TYPE CODE TESTS RESULT OUT OF [...] GAP Performed By: #### L500.4050, L501.9520 #### [facility] [address] [place], [address] THYROID STIM HORMONE Collected: 04/02/2018 Status: F Source: [place] (TSH) 6:00 PM [facility] REPOSITORY TYPE CODE TESTS RESULT OUT OF RANGE REFERENCE UNITS LAB L501.9520 0.358-3.74 uIU/mL Normal TSH 0.69 Performed By: #### L500.4050, L501.9520 #### [facility] [address] [place], [address] BEDSIDE GLUCOSE Collected: 04/02/2018 Status: F Source: [place] 5:50 PM [facility] REPOSITORY TYPE CODE TESTS RESULT OUT OF RANGE REFERENCE UNITS LAB L501.080 70-110 mg/dL Normal BEDSIDE GLU 81 Result Comment: MANAGEMENT OF PATIENT CARE PER NURSING PROTOCOL Performed By: #### L501.080 #### [facility] Point of Care [address] [place] [address] EMERGENCY DEPARTMENT Observed: 03/30/2018 Status: F Source: [place] SUMMARY 12:56 AM [facility] REPOSITORY [facility] Medical Records Department [address] [place] [address] Emergency Department Summary 03/29/18 1808 MR#: [id number] Acct: [id number] Name: XANDER RAMIREZ Rep #: [id number] : 1950 67 From: Roopa Victor MD [...] pain, dysuria This note was generated with Dragon dictation software. It may contain incorrect words, [...] problems, contact your Primary Care Provider. Call [facility] ([phone]) or report to the closest Emergency Room. Call 911 if necessary. 03/30/18 0056 <Electronically signed by Roopa Victor MD> Date Roopa Victor MD Cosigner Signature (If Indicated): Date CC: Patel Veliz MD DISCHARGE INSTRUCTION Observed: 03/30/2018 Status: F Source: [place] 12:20 AM [facility] REPOSITORY [facility] Medical Records Department [address] [place] [address] Discharge Instruction 03/29/180 MR#: [id number] Acct: [id number] Name: XANDER RAMIREZ Rep #: [id number] : 1950 67 From: Roopa Victor MD PCP: Patel Veliz MD, Chi Status: [facility] ER ED Disposition - Plan for ED [...] problems, contact your Primary Care Provider. Call [facility] ([phone]) or report to the closest Emergency Room. Call 911 if necessary. 03/30/18 0020 <Electronically signed by Roopa Victor MD> Date Roopa Victor MD Cosigner Signature (If Indicated): Date CC: Patel Veliz MD URINALYSIS, COMPLETE Collected: 03/29/2018 Status: F Source: [place] 9:14 PM [facility] REPOSITORY Order Comment: Order Date: 03/29/18 How [...] URINE SEEN Performed By: #### L400.0001 #### [facility] [address] [place], [place], [address] CBC W/DIFF, AUTOMATED Collected: 03/29/2018 Status: F Source: [place] 7:05 PM [facility] REPOSITORY TYPE CODE TESTS RESULT OUT OF [...] Lymph 2.15 Performed By: #### L100.0100 #### [facility] [address] [facility] [address] PROTHROMBIN TIME W/INR Collected: 03/29/2018 Status: F Source: [place] 7:05 PM [facility] REPOSITORY TYPE CODE TESTS RESULT OUT OF RANGE REFERENCE UNITS LAB L300.4150 11.7-14.9 SECONDS Normal PROTIME 12.9 LAB L300.4200 Normal INR 1.0 Performed By: #### L300.3900, L300.4310 #### [facility] [address] [facility] [address] PARTIAL THROMBOPLAST Collected: 03/29/2018 Status: F Source: [facility] 7:05 PM [facility] REPOSITORY TYPE CODE TESTS RESULT OUT OF REFERENCE UNITS RANGE LAB L300.4310 24.1-36.2 Seconds Low PTT 21.0 Performed By: #### L300.3900, L300.4310 #### [facility] [address] [facility] [address] COMPREHENSIVE METABOLIC Collected: 03/29/2018 Status: F Source: [place] PROFIL 7:05 PM [facility] REPOSITORY TYPE CODE TESTS RESULT OUT OF [...] Performed By: #### L500.4050, L501.2450, L501.4010 #### [facility] [address] [place], [address] LIPASE Collected: 03/29/2018 Status: F Source: [place] 7:05 PM [facility] REPOSITORY TYPE CODE TESTS RESULT OUT OF RANGE REFERENCE UNITS LAB L501.2450 73-393 U/L Normal LIPASE 91 Performed By: #### L500.4050, L501.2450, L501.4010 #### [facility] [address] [facility] [place], [address] TROPONIN-I Collected: 03/29/2018 Status: F Source: [place] 7:05 PM [facility] REPOSITORY TYPE CODE TESTS RESULT OUT OF RANGE REFERENCE UNITS LAB L501.4010 <0.045 ng/mL Normal < 0.015 TROPONIN-I Result Comment: TROPONIN-I EXPECTED VALUES <0.045 Negative 0.045 - 0.590 Consistent with Cardiac Damage > OR = 0.600 Critical Value Not every elevated troponin is indicative of UT. These values should be used with clinical judgement in examining the patient's clinical picture for diagnosis. To establish a diagnosis of UT versus myocardial injury, there must be a demonstrated rise and/or fall in the troponin values, in addition to ischemic symptoms, EKG changes, new regional wall motion abnormality, and/or angiographical evidence. PLEASE NOTE: REFERENCE RANGES EDITED 17 Performed By: #### L500.4050, L501.2450, L501.4010 #### [facility] [address] [facility] [place], [address] LACTIC ACID Collected: 03/29/2018 Status: F Source: [place] 7:05 PM [facility] REPOSITORY Order Comment: Yes/No query for Sepsis Lactate Rule Y TYPE CODE TESTS RESULT OUT OF RANGE REFERENCE UNITS LAB L503.6005 0.4-2.0 mmol/L Normal LACTIC ACID 1.4 Performed By: #### L503.6005 #### [facility] [address] [facility] [place], [address] CHEST 1 VIEW Observed: 03/29/2018 Status: F Source: [place] (PORTABLE) 6:08 PM [facility] REPOSITORY [facility] Imaging Services [address] [place] [address] Chest 1 View (Portable) MR#: [id number] Acct: [id number] Name: XANDER RAMIREZ Rep #: [id number] : 1950 F 67 From: Sheng Crawford MD PCP: Jose Alfredo LEACH,Patel Chi Status: REG ER Study: Chest 1 View (Portable) Date of Exam: 03/29/18 Exam# [id number] Ordering Dr: Roopa Victor MD STUDY: X-RAY [...] CC: Roopa Victor MD; Patel Veliz MD Edge Burnisher: Signed BRAIN/HEAD WITHOUT Observed: 03/29/2018 Status: F Source: [place] CONTRAST 6:08 PM [facility] REPOSITORY [facility] Imaging Services [address] [place] [address] Brain/Head without Contrast MR#: [id number] Acct: [id number] Name: XANDER RAMIREZ Rep #: [id number] : 1950 F 67 From: Sheng Crawford MD PCP: Patel Veliz MD, Chi Status: REG ER Study: Brain/Head without Contrast Date of Exam: 03/29/18 Exam# [id number] Ordering Dr: Roopa Victor MD STUDY: CT [...] CC: Roopa Victor MD; Patel Veliz MD Edge Burnisher: Signed DISCHARGE SUMMARY Observed: 03/22/2018 Status: F Source: [place] 8:34 AM [facility] REPOSITORY [facility] Medical Records Department [address] [place] [address] Discharge Summary 03/22/18825 MR#: [id number] Acct: [id number] Name: XANDER RAMIREZ Rep #: [id number] : 1950 67 From: Abelrado Waldrop MD PCP: Jose Alfredo LEACH,Patel Garvey Status: ADM IN Location: [place] [address]-1 Discharge Date and Diagnosis - Problem List [...] Anxiety and Depression/Insomnia who presents to the [facility] ED on 03/19/18 with history [...] applicable Code Visit Inpatient E AND M: 55571 Disch Hosp 03/22/18 0834 <Electronically signed by Abelardo Waldrop MD> Date Abelardo Waldrop MD Cosigner Signature (if applicable): Date ___ CC: Abelardo Waldrop MD; Patel Veliz MD Signed DISCHARGE INSTRUCTION Observed: 03/22/2018 Status: F Source: [place] 8:26 AM [facility] REPOSITORY [facility] Medical Records Department [address] [place] [address] [place] [address] Instructions for Home/Discharge Instructions 03/22/18 0824 MR#: [id number] Acct: [id number] Name: XANDER RAMIREZ Rep #: [id number] : 1950 67 From: Abelardo Waldrop MD [...] at your follow-up appointment, if applicable. 03/22/18 0826 <Electronically signed by Abelardo Waldrop MD> Date Abelardo Waldrop MD CC: Patel Veliz MD CBC W/DIFF, AUTOMATED Collected: 03/20/2018 Status: F Source: [place] 5:28 AM [facility] REPOSITORY TYPE CODE TESTS RESULT OUT OF [...] Lymph 1.30 Performed By: #### L100.0100 #### [facility] [address] [place], [address] BASIC METABOLIC Collected: 03/20/2018 Status: F Source: [place] PROFILE (BMP) 5:28 AM [facility] REPOSITORY TYPE CODE TESTS RESULT OUT OF [...] GAP 6 Performed By: #### L500.2500 #### [facility] [address] [place], [address] HISTORY AND PHYSICAL Observed: 03/20/2018 Status: F Source: [place] EXAM 12:37 AM [facility] REPOSITORY [facility] Medical Records Department [address] [place] [address] History and Physical 03/19/18 9444 MR#: [id number] Acct: [id number] Name: XANDER RAMIREZ Rep #: [id number] : 1950 67 From: Arielle Hensley PCP: Jose Alfredo LEACH,Patel Chi Status: ADM IN Y Location: [place] [address] Problem List (1) UTI (urinary tract infection) [...] Anxiety and Depression/Insomnia who presents to the [facility] ED on 03/19/18 with history [...] removal. 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 Code Visit Inpatient E AND M: [id number] Init Hosp L3 03/20/18 0037 <Electronically signed by Arielle Hensley > Date Arielle Hensley Cosigner Signature: Date (if applicable) CC: Arielle Hensley; Patel Veliz MD Signed EMERGENCY DEPARTMENT Observed: 03/20/2018 Status: F Source: [place] SUMMARY 12:21 AM [facility] REPOSITORY [facility] Medical Records Department [address] [place] [address] Emergency Department Summary 03/19/18 2259 MR#: [id number] Acct: [id number] Name: XANDER RAMIREZ Rep #: [id number] : 1950 67 From: Lola Fuentes MD [...] Hypotension, improved This note was generated with Alo7 dictation software. It may contain incorrect words, [...] problems, contact your Primary Care Provider. Call [facility] ([phone]) or report to the closest Emergency Room. Call 911 if necessary. 03/20/18 0021 <Electronically signed by Lola Fuentes MD> Date Lola Albarado Signature (If Indicated): Date CC: Patel Veliz MD LACTIC ACID Collected: 03/19/2018 Status: F Source: [place] 10:45 PM [facility] REPOSITORY Order Comment: Yes/No query for Sepsis Lactate Rule Y TYPE CODE TESTS RESULT OUT OF RANGE REFERENCE UNITS LAB L503.6005 0.4-2.0 mmol/L Normal LACTIC ACID 1.8 Performed By: #### L503.6005 #### [facility] [address] [place], [address] URINALYSIS, COMPLETE Collected: 03/19/2018 Status: F Source: [place] 9:55 PM [facility] REPOSITORY Order Comment: How was Urine Obtained? 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, [address] Observed: 03/19/2018 Status: F Source: [place] CULTURE, URINE 9:55 PM [facility] REPOSITORY Urine Culture There are no CLSI standards for interpretation of this Drug/Organism combination. ORGANISM 1: Aerococcus urinae [place] Count >100,000 Performed By: #### M100.0650 #### [facility] [address] [facility] [place], [address] CHEST 1 VIEW Observed: 03/19/2018 Status: F Source: [place] (PORTABLE) 8:46 PM [facility] REPOSITORY [facility] Imaging Services [address] [place] [address] Chest 1 View (Portable) MR#: [id number] Acct: [id number] Name: XANDER RAMIREZ Rep #: [id number] : 1950 F 67 From: Gabby Medina MD PCP: Jose Alfredo LEACH,Patel Garvey Status: REG ER Study: Chest 1 View (Portable) Date of Exam: 03/19/18 Exam# [id number] Ordering Dr: Lola Fuentes MD STUDY: X-RAY [...] CC: Lola Fuentes MD; Patel Veliz MD Edge Burnisher: Signed ABDOMEN/PELVIS WITHOUT Observed: 03/19/2018 Status: F Source: [place] CONT 8:46 PM [facility] REPOSITORY [facility] Imaging Services [address] [place] [address] Abdomen/Pelvis without Cont MR#: [id number] Acct: [id number] Name: XANDER RAMIREZ Rep #: [id number] : 1950 F 67 From: Allen Lawrence MD PCP: Patel Veliz MD, Chi Status: REG ER Study: Abdomen/Pelvis without Cont Date of Exam: 03/19/18 Exam# [id number] Ordering Dr: Lola Fuentes MD STUDY: CT [...] CC: Lola Fuentes MD; Patel Veliz MD Edge Burnisher: Signed CBC W/DIFF, AUTOMATED Collected: 03/19/2018 Status: F Source: [place] 8:25 PM [facility] REPOSITORY TYPE CODE TESTS RESULT OUT OF [...] Lymph 2.78 Performed By: #### L100.0100 #### [facility] [address] [facility] [place], [address] BASIC METABOLIC Collected: 03/19/2018 Status: F Source: [place] PROFILE (BMP) 8:25 PM [facility] REPOSITORY TYPE CODE TESTS RESULT OUT OF [...] 9 Performed By: #### L500.2500, L500.3400 #### [facility] [address] [place], [address] LIVER PROFILE Collected: 03/19/2018 Status: F Source: [place] 8:25 PM [facility] REPOSITORY TYPE CODE TESTS RESULT OUT OF [...] 0.10 Performed By: #### L500.2500, L500.3400 #### [facility] [place], [address] PHENYTOIN (DILANTIN) Collected: 03/19/2018 Status: F [facility] REPOSITORY TYPE CODE TESTS RESULT OUT OF REFERENCE UNITS RANGE LAB L501.7700 10.0-20.0 mL Low PHENYTOIN 9.8 Performed By: #### L501.7700 #### [facility] [address] [place] [address], [address] MAGNESIUM Collected: 03/19/2018 Status: F Source: [place] 8:25 PM [facility] REPOSITORY TYPE CODE TESTS RESULT OUT OF RANGE REFERENCE UNITS LAB L501.5200 1.6-2.6 mg/dL Normal MG 2.2 Performed By: #### L501.5200 #### [facility] [address] [place], [address] COMPREHENSIVE METABOLIC Collected: 03/14/2018 Status: F Source: [place] PROFIL 3:21 PM [facility] REPOSITORY TYPE CODE TESTS RESULT OUT OF [...] 8 Performed By: #### L500.4050, L501.9520 #### [facility] [address] [place], [address] THYROID STIM HORMONE Collected: 03/14/2018 Status: F Source: [place] (TSH) 3:21 PM [facility] REPOSITORY TYPE CODE TESTS RESULT OUT OF RANGE REFERENCE UNITS LAB L501.9520 0.358-3.74 uIU/mL Normal TSH 1.42 Performed By: #### L500.4050, L501.9520 #### [facility] [address] [place], [address] CBC W/DIFF, AUTOMATED Collected: 03/14/2018 Status: F Source: [place] 3:21 PM [facility] REPOSITORY TYPE CODE TESTS RESULT OUT OF [...] Lymph 2.31 Performed By: #### L100.0100 #### [facility] [address] [place], [address] VITAMIN D,25 HYDROXY Collected: 03/14/2018 Status: F Source: [place] 3:21 PM [facility] REPOSITORY TYPE CODE TESTS RESULT OUT OF RANGE REFERENCE UNITS LAB L506.1000 29.95-100.01 ng/mL Normal Vitamin D 33.8 25-OH Result Comment: Vitamin D 25(OH) Status Range Deficiency <20 ng/mL (50nmol/L) Insuffciency 20 - 30 ng/mL (50 - 75 nmol/L) Sufficiency 30 - 100 ng/mL (75 - 250 nmol/L) Toxicity >100 ng/mL (>250 nmol/L) Performed By: #### L506.1000 #### [facility] [address] [place], [address] 12 LEAD ELECTROCARDIOGRAM Observed: 03/09/2018 Status: F Source: [place] 2:28 PM [facility] REPOSITORY [facility] Cardiovascular Services [address] [place] [address] 12 Lead EKG 03/07/18 0457 MR#: [id number] Acct: [id number] Name: RAMIREZXANDER Rep #: [id number] : 1950 67 From: Tank Hernandez MD Attending Dr: Thai Collado DO Status: DIS IN Ordering Dr: Saulo Pagan MD Date: 03/07/18 Location: [facility] Sex: F C Admitted: 03/05/18 Test Reason [...] UNCONFIRMED Confirmed by TANK HERNANDEZ MD ([id number]), website/blog editor GOPI RAMIREZ ([id number]) on 03/09/2018 2:28:37 PM Referred By: DR HENSLEY Confirmed By:TANK HERNANDEZ MD 03/09/18 1238 Date Tank Hernandez MD CC: Thai Collado DO; Saulo Pagan MD; Patel Veliz MD Signed 12 LEAD ELECTROCARDIOGRAM Observed: 03/08/2018 Status: F Source: [place] 3:26 PM [facility] REPOSITORY [facility] Cardiovascular Services [address] [place] [address] 12 Lead EKG 03/05/18 1748 MR#: [id number] Acct: [id number] Name: KATALINA RAMIREZTYRONE Hernandez Rep #: [id number] : 1950 67 From: Tank Hernandez MD Attending Dr: Thai Collado DO Status: DIS IN Ordering Dr: Arielle Hensley Date: 03/05/18 Location: [facility] Sex: F C Admitted: 03/05/18 Test Reason [...] UNCONFIRMED Confirmed by TANK HERNANDEZ MD ([id number]), website/blog editor GOPI RAMIREZ ([id number]) on 03/08/2018 3:26:24 PM Referred By: ARTUR Confirmed By:TANK HERNANDEZ MD 03/08/18 1526 Date Tank Hernandez MD CC: Arielle Hensley; Thai Collado DO; Patel Veliz MD Signed 12 LEAD ELECTROCARDIOGRAM Observed: 03/08/2018 Status: F Source: [place] 3:24 PM [facility] REPOSITORY [facility] Cardiovascular Services [address] [place] [address] 12 Lead EKG 03/06/18 0556 MR#: [id number] Acct: [id number] Name: XANDER RAMIREZ Rep #: [id number] : 1950 67 From: Tank Hernandez MD Attending Dr: Thai Collado DO Status: DIS IN Ordering Dr: Arielle Hensley Date: 03/06/18 Location: [facility] Sex: F C Admitted: 03/05/18 Test Reason [...] UNCONFIRMED Confirmed by TANK HERNANDEZ MD ([id number]), website/blog editor GOPI RAMIREZ ([id number]) on 03/08/2018 3:23:45 PM Referred By: DR HENSLEY Confirmed By:TANK HERNANDEZ MD 03/08/18 1523 Date Tank Hernandez MD CC: Arielle Hensley; Thai Collado DO; Patel Veliz MD Signed 12 LEAD ELECTROCARDIOGRAM Observed: 03/08/2018 Status: F Source: [place] 2:38 PM [facility] REPOSITORY [facility] Cardiovascular Services [address] [place] [address] 12 Lead EKG 03/05/18 1421 MR#: [id number] Acct: [id number] Name: XANDER RAMIREZ Rep #: [id number] : 1950 67 From: Saulo Moss MD Attending Dr: Thai Collado DO Status: DIS IN Ordering Dr: Francis Carr MD Date: 03/05/18 Location: [facility] Sex: F C Admitted: 03/05/18 Test Reason [...] wave abnormality Abnormal ECG Confirmed by JAMES LEACH, SAULO ([id number]), website/blog editor GOPI RAMIREZ (56) on 03/08/2018 2:37:54 PM Referred By: APRIL Confirmed By:SAULO MOSS MD 03/08/18 1435 Date Saulo Moss MD CC: MD Bryan Carr; Thai Collado DO; Patel Veliz MD Signed DISCHARGE INSTRUCTION Observed: 03/07/2018 Status: F Source: [place] 4:26 PM [facility] REPOSITORY [facility] Medical Records Department [address] [place] [address] Instructions for Home/Discharge Instructions 03/07/18 1621 MR#: [id number] Acct: [id number] Name: XANDER RAMIREZ Rep #: [id number] : 1950 67 From: Thai Collado DO [...] DISCHARGE SUMMARY Observed: 03/07/2018 Status: F Source: [place] 4:25 PM [facility] REPOSITORY [facility] Medical Records Department [address] [place] [address] Discharge Summary 03/07/181621 MR#: [id number] Acct: [id number] Name: XANDER RAMIREZ Rep #: [id number] : 1950 67 From: Thai Collado DO PCP: Patel Veliz MD, Chi Status: ADM IN Location: [place] [address] Discharge Date and Diagnosis - Problem List [...] not scheduled Patient may follow-up with Dr. Basali as outpt No new events today, so [...] applicable Code Visit Inpatient E AND M: 12060 Disch Hosp 03/07/18 1625 <Electronically signed by Thai Collado DO> Date Thai Collado DO Cosigner Signature (if applicable): Date CC: Thai Collado DO; Patel Veliz MD Signed STRESS REPORT Observed: 03/07/2018 Status: F Source: [place] 11:16 AM [facility] REPOSITORY [facility] Cardiovascular Services [facility] [place] [address] MR#: [id number] Acct: [id number] Name: XANDER RAMIREZ Rep #: [id number] : 1950 67 From: Saulo Moss MD Primary Care: Patel Veliz MD, Chi Status: ADM IN Ordering Dr: Sex: F C Stress Test Report Date: 03/07/2018 Procedure: [...] 70 %. This note was generated with nDreamsation software. It may contain incorrect words, spelling, and punctuation that were not noted in checking the note before signing. 03/07/18 1116 <Electronically signed by Saulo Moss MD> Date Saulo Moss MD CC: Thai Collado DO; Patel Veliz MD Date Dictated: 03/07/181111 Date Transcribed: 03/07/181111 Edge Burnisher: PM Signed CBC W/DIFF, AUTOMATED Collected: 03/07/2018 Status: F Source: [place] 6:00 AM [facility] REPOSITORY TYPE CODE TESTS RESULT OUT OF [...] Lymph 2.00 Performed By: #### L100.0100 #### [facility] [address] [place], [address] PROTHROMBIN TIME W/INR Collected: 03/07/2018 Status: F Source: [place] 6:00 AM [facility] REPOSITORY TYPE CODE TESTS RESULT OUT OF RANGE REFERENCE UNITS LAB L300.4150 11.7-14.9 SECONDS Normal PROTIME 14.2 LAB L300.4200 Normal INR 1.1 Performed By: #### L300.3900, L300.4310 #### [facility] [address] [place], [address] PARTIAL THROMBOPLAST Collected: 03/07/2018 Status: F Source: [place] TIME 6:00 AM [facility] REPOSITORY TYPE CODE TESTS RESULT OUT OF RANGE REFERENCE UNITS LAB L300.4310 24.1-36.2 Seconds Normal PTT 32.0 Performed By: #### L300.3900, L300.4310 #### [facility] [address] [place], [address] BASIC METABOLIC Collected: 03/07/2018 Status: F Source: [place] PROFILE (BMP) 6:00 AM [facility] REPOSITORY TYPE CODE TESTS RESULT OUT OF [...] GAP 9 Performed By: #### L500.2500 #### [facility] [address] [facility] [place], [address] CPK TOTAL, CREATINE Collected: 03/06/2018 Status: F Source: [place] KINASE 4:08 PM [facility] REPOSITORY TYPE CODE TESTS RESULT OUT OF RANGE REFERENCE UNITS LAB L501.3620 26-192 U/L Normal CPK TOTAL 137 Performed By: #### L501.3620 #### [facility] [address] [place], [address] ECHOCARDIOGRAM COMPLETE Observed: 03/06/2018 Status: F Source: [place] 2:01 PM [facility] REPOSITORY [facility] Cardiovascular Services [address] [place] [address] Echo Complete 03/06/18 1004 MR#: [id number] Acct: [id number] Name: XANDER RAMIREZ Rep #: [id number] : 1950 67 From: Tank Hernandez MD Attending Dr: Thai Collado DO Status: ADM IN Ordering Dr: Arielle Hensley Date: 03/05/18 Location: PCU Sex: F C Admitted: 03/05/18 Reason For [...] Hensley; Thai Collado DO; Patel Veliz MD Date Dictated: 03/06/18 1004 Date Transcribed: 03/06/18 1401 Edge Burnisher: Signed CBC-COMPLETE BLOOD CNT Collected: 03/06/2018 Status: F Source: [place] NO DIFF 6:15 AM [facility] REPOSITORY TYPE CODE TESTS RESULT OUT OF [...] MPV 10.0 Performed By: #### L100.0500 #### [facility] [address] [place], [address] COMPREHENSIVE METABOLIC Collected: 03/06/2018 Status: F Source: [facility] 6:15 AM [facility] REPOSITORY TYPE CODE TESTS RESULT OUT OF [...] 8 Performed By: #### L500.4050, L500.4100 #### [facility] [address] [place], [place], [address] LIPID PROFILE Collected: 03/06/2018 Status: F Source: [place] 6:15 AM [facility] REPOSITORY TYPE CODE TESTS RESULT OUT OF [...] 31 Performed By: #### L500.4050, L500.4100 #### [facility] [address] [place], [place], [address] TROPONIN-I Collected: 03/05/2018 Status: F Source: [place] 9:13 PM [facility] REPOSITORY Order Comment: 'TROP' Serial specimen #1, #2 or #3: 3 TYPE CODE TESTS RESULT OUT OF RANGE REFERENCE UNITS LAB L501.4010 <0.045 ng/mL High 0.220 TROPONIN-I Result Comment: TROPONIN-I EXPECTED VALUES <0.045 Negative 0.045 - 0.590 Consistent with Cardiac Damage > OR = 0.600 Critical Value Not every elevated troponin is indicative of UT. These values should be used with clinical judgement in examining the patient's clinical picture for diagnosis. To establish a diagnosis of UT versus myocardial injury, there must be a demonstrated rise and/or fall in the troponin values, in addition to ischemic symptoms, EKG changes, new regional wall motion abnormality, and/or angiographical evidence. PLEASE NOTE: REFERENCE RANGES EDITED 17 Performed By: #### L501.4010 #### [facility] [address] [place], [address] Observed: 03/05/2018 Status: F Source: [place] RESPIRATORY PANEL 8:30 PM [facility] MOLECULAR REPOSITORY Order Date: 03/05/18 Has pt [...] acid amplification Performed By: #### M100.638 #### [facility] [address] [facility] [place], [address] TROPONIN-I Collected: 03/05/2018 Status: F Source: [place] 6:01 PM [facility] REPOSITORY Order Comment: 'TROP' Serial specimen #1, #2 or #3: 2 TYPE CODE TESTS RESULT OUT OF RANGE REFERENCE UNITS LAB L501.4010 <0.045 ng/mL High 0.250 TROPONIN-I Result Comment: TROPONIN-I EXPECTED VALUES <0.045 Negative 0.045 - 0.590 Consistent with Cardiac Damage > OR = 0.600 Critical Value Not every elevated troponin is indicative of UT. These values should be used with clinical judgement in examining the patient's clinical picture for diagnosis. To establish a diagnosis of UT versus myocardial injury, there must be a demonstrated rise and/or fall in the troponin values, in addition to ischemic symptoms, EKG changes, new regional wall motion abnormality, and/or angiographical evidence. PLEASE NOTE: REFERENCE RANGES EDITED 17 Performed By: #### L501.4010 #### [facility] [address] [place], [address] HISTORY AND PHYSICAL Observed: 03/05/2018 Status: F Source: [place] EXAM 4:47 PM [facility] REPOSITORY [facility] Medical Records Department [address] [place] [address] History and Physical 03/05/18 1628 MR#: [id number] Acct: [id number] Name: XANDER RAMIREZ Rep #: [id number] : 1950 67 From: Arielle Hensley PCP: Jose Alfredo LEACH,[employer] Status: ADM IN Location: [place] [address] Problem List (1) Viral illness Status: Acute [...] Anxiety and Depression/Insomnia who presents to the [facility] ED on 03/05/18 with history [...] acute findings. In the ED patient a osteopathic resident Tylenol, morphine, Zofran, normal saline. Discussed patient [...] removal. 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 Psychiatric: affect appears mildly [...] Anxiety and Depression/Insomnia who presents to the [facility] ED on 03/05/18 with history [...] trend. Code Visit Inpatient E AND M: 23317 Init Hosp L3 03/05/18 3869 <Electronically signed by Arielle Hensley > Date Arielle Hensley Cosigner Signature: Date (if applicable) CC: Arielle Hensley; Patel Veliz MD Signed EMERGENCY DEPARTMENT Observed: 03/05/2018 Status: F Source: [place] SUMMARY 4:08 PM [facility] REPOSITORY [facility] Medical Records Department [address] [place] [address] Emergency Department Summary 03/05/18 1431 MR#: [id number] Acct: [id number] Name: XANDER RAMIREZ Rep #: [id number] : 1950 67 From: Francis Carr MD PCP: Patel Veliz MD, Chi Status: REG ER - ER Visit Summary Date of Service: 03/05/18 Chief Complaint: [] Temperature of 102 diffuse body aches History of Present Illness: The patient is a 67 F [] patient reports history of seizure disorder no other past history walks stating she felt fine had breakfast and she developed a fever to 102 at the [facility] and diffuse body aches and headaches and [...] recent seizures no obvious exposures at the [facility] Physical Examination: [] Pressure is 102.4 [...] she has no history of CAD or UT. The EKG showed a sinus rhythm nonspecific [...] abnormal troponin This note was generated with Alo7 dictation software. It may contain incorrect words, [...] your Primary Care Provider. Call [facility] ([phone]) or report to the closest Emergency Room. Call 911 if necessary. 03/05/18 1608 <Electronically signed by Francis Carr MD> Date Francis Carr MD Cosigner Signature (If Indicated): Date CC: Patel Veliz MD URINALYSIS, COMPLETE Collected: 03/05/2018 Status: F Source: [place] 3:29 PM [facility] REPOSITORY Order Comment: Order Date: 03/05/18 How was Urine Obtained? 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. [place], [place], [address] Observed: 03/05/2018 Status: F Source: [place] CULTURE, URINE 3:29 PM [facility] REPOSITORY Order Date: 03/05/18 Urine Culture Culture exhibits no growth. Performed By: #### M100.0650 #### [facility]. [place], [place], [address] Observed: 03/05/2018 Status: F Source: [place] CULTURE, BLOOD (WB) 2:51 PM [facility] REPOSITORY BC No growth in 5 days. Performed By: #### M200.1000 #### [facility] [place], [address] BASIC METABOLIC Collected: 03/05/2018 Status: F Source: [place] PROFILE (BMP) 2:50 PM [facility] REPOSITORY TYPE CODE TESTS RESULT OUT OF [...] 13 Performed By: #### L500.2500, L501.4010 #### [facility] [address], [address] TROPONIN-I Collected: 03/05/2018 Status: F Source: [place] 2:50 PM [facility] REPOSITORY TYPE CODE TESTS RESULT OUT OF RANGE REFERENCE UNITS LAB L501.4010 <0.045 ng/mL High 0.290 TROPONIN-I Result Comment: TROPONIN-I EXPECTED VALUES <0.045 Negative 0.045 - 0.590 Consistent with Cardiac Damage > OR = 0.600 Critical Value Not every elevated troponin is indicative of UT. These values should be used with clinical judgement in examining the patient's clinical picture for diagnosis. To establish a diagnosis of UT versus myocardial injury, there must be a demonstrated rise and/or fall in the troponin values, in addition to ischemic symptoms, EKG changes, new regional wall motion abnormality, and/or angiographical evidence. PLEASE NOTE: REFERENCE RANGES EDITED 17 Performed By: #### L500.2500, L501.4010 #### [facility] [place], [address] CBC W/DIFF, AUTOMATED Collected: 03/05/2018 Status: F Source: [place] 2:50 PM [facility] REPOSITORY TYPE CODE TESTS RESULT OUT OF [...] Lymph 1.44 Performed By: #### L100.0100 #### [facility] [address] [facility], [address] LACTIC ACID Collected: 03/05/2018 Status: F Source: [place] 2:50 PM [facility] REPOSITORY Order Comment: Yes/No query for Sepsis Lactate Rule Y TYPE CODE TESTS RESULT OUT OF RANGE REFERENCE UNITS LAB L503.6005 0.4-2.0 mmol/L Normal LACTIC ACID 1.3 Performed By: #### L503.6005 #### [facility], [address] BNP,B-TYPE NATRIURETIC Collected: 03/05/2018 Status: F Source: [place] PEPTIDE 2:50 PM [facility] REPOSITORY TYPE CODE TESTS RESULT OUT OF RANGE REFERENCE UNITS LAB L503.6620 0-100 pg/mL High B-TYPE 181.1 BECCA PEP Performed By: #### L503.6620 #### [facility] [address] [place] [address]. [place], [address] MAGNESIUM Collected: 03/05/2018 Status: F Source: [place] 2:50 PM [facility] REPOSITORY Order Comment: OK TO ADD PER ADDY TYPE CODE TESTS RESULT OUT OF RANGE REFERENCE UNITS LAB L501.5200 1.6-2.6 mg/dL Normal MG 2.2 Performed By: #### L501.5200 #### [facility] [address] [place] [address]. [place], [address] Observed: 03/05/2018 Status: F Source: [place] CULTURE, BLOOD (WB) 2:50 PM [facility] REPOSITORY BC No growth in 5 days. Performed By: #### M200.1000 #### [facility] [address] [place] [address]. [place], [id number] BRAIN/HEAD WITHOUT Observed: 03/05/2018 Status: F Source: [place] CONTRAST 2:16 PM [facility] REPOSITORY [facility] Imaging Services [address] [place] [address] [place] [address] Brain/Head without Contrast MR#: [id number] Acct: [id number] Name: XANDER RAMIREZ Rep #: [id number] : 1950 F 67 From: Ang Mazariegos MD PCP: Patel Veliz MD, Chi Status: REG ER Study: Brain/Head without Contrast Date of Exam: 03/05/18 Exam# [id number] Ordering Dr: Francis Carr MD STUDY: CT [...] CC: MD Bryan Carr; Patel Veliz MD Edge Burnisher: Signed CHEST 1 VIEW Observed: 03/05/2018 Status: F Source: [place] (PORTABLE) 2:09 PM [facility] REPOSITORY [facility] Imaging Services [address] [place] [address] Chest 1 View (Portable) MR#: [id number] Acct: [id number] Name: XANDER RAMIREZ Rep #: [id number] : 1950 F 67 From: Elsie Umaña MD PCP: Patel Veliz MD, Chi Status: REG ER Study: Chest 1 View (Portable) Date of Exam: 03/05/18 Exam# [id number] Ordering Dr: Francis Carr MD STUDY: X-RAY [...] CC: MD Bryan Carr; Patel Veliz MD Edge Burnisher: Signed EMERGENCY DEPARTMENT Observed: 02/24/2018 Status: F Source: [place] SUMMARY 10:55 AM [facility] REPOSITORY [facility] Medical Records Department [address] [place] [address] Emergency Department Summary 02/24/18 0814 MR#: [id number] Acct: [id number] Name: XANDER RAMIREZ Rep #: [id number] : 1950 67 From: Thai Alfaro DO [...] Abdominal pain This note was generated with Alo7 dictation software. It may contain incorrect words, [...] problems, contact your Primary Care Provider. Call [facility] ([phone]) or report to the closest Emergency Room. Call 911 if necessary. 02/24/18 1055 <Electronically signed by Thai Alfaro DO> Date Thai Alfaro DO Cosigner Signature (If Indicated): Date CC: Patel Veliz MD CBC W/DIFF, AUTOMATED Collected: 02/24/2018 Status: F Source: [place] 8:36 AM [facility] REPOSITORY TYPE CODE TESTS RESULT OUT OF [...] Lymph 2.00 Performed By: #### L100.0100 #### [facility] [address] [place], [place], [address] URINALYSIS, COMPLETE Collected: 02/24/2018 Status: F Source: [place] 8:06 AM [facility] REPOSITORY Order Comment: Order Date: 02/24/18 How [...] URINE RARE Performed By: #### L400.0001 #### [facility] [address] [place], [address] COMPREHENSIVE METABOLIC Collected: 02/24/2018 Status: F Source: [place] [facility] 8:05 AM [facility] REPOSITORY TYPE CODE TESTS RESULT OUT OF [...] 8 Performed By: #### L500.4050, L501.2450 #### [facility] [place], [address] LIPASE Collected: 02/24/2018 Status: F Source: [place] 8:05 AM [facility] REPOSITORY TYPE CODE TESTS RESULT OUT OF REFERENCE UNITS RANGE LAB L501.2450 73-393 U/L Low LIPASE 47 Performed By: #### L500.4050, L501.2450 #### [facility] [address] [place], [address] ABDOMEN/PELVIS WITH Observed: 02/24/2018 Status: F Source: [place] CONTRAST 7:43 AM [facility] REPOSITORY [facility] Imaging Services [address] [place] [address] Abdomen/Pelvis WITH Contrast MR#: [id number] Acct: [id number] Name: XANDER RAMIREZ Rep #: [id number] : 1950 F 67 From: Isaias Munroe MD PCP: Jose Alfredo LEACH,Patel Garvey Status: REG ER Study: Abdomen/Pelvis WITH Contrast Date of Exam: 02/24/18 Exam# [id number] Ordering Dr: Thai Alfaro DO STUDY: CT [...] Isaias Munroe MD at 9:46 EDT Tel [phone], Service support , CC: hTai Alfaro DO; Patel Veliz MD Edge Burnisher: Signed SURGERY VISIT REPORT Observed: 02/10/2018 Status: F Source: [place] 8:11 AM [facility] [address] [place] [address] [address] [place] [address] OFFICE VISIT Date of Service: 02/07/18 MR#: [id number] Acct: [id number] Name: XANDER RAMIREZ Rep #: [id number] : 1950 Provider: Jr Dunlap MD Age/Sex: 67/F Location: [facility] Status: Signed Intake Vital Signs02/07/18 Height 5 ft 5 in 02/07/18 Weight: 157 lb 02/07/18 Body Mass Index (BMI) 26.1 Intake Visit Reasons: Painful Hemorrhoids Chief Complaint: Metabolic Acidosis 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 Jr Dunlap MD Pager: [facility] [address] [place] [address], [address] [place] [address] Office: Coding Level of Care Code Off vis,new,level 3 Diagnoses Grade III hemorrhoids K64.2 Hemorrhoid type: third degree 02/10/18 0811 <Electronically signed by Jr Dunlap MD> Date Jr Dunlap MD Cosigner Signature: Date (if applicable) CC: Patel Veliz MD EMERGENCY DEPARTMENT Observed: 02/02/2018 Status: F Source: [place] SUMMARY 2:53 PM [facility] REPOSITORY [facility] Medical Records Department [address] [place] [address] Emergency Department Summary 02/01/18 1554 MR#: [id number] Acct: [id number] Name: XANDER RMAIREZ Rep #: [id number] : 1950 67 From: Peng Pastrana MD [...] Abdominal pain. This note was generated with Alo7 dictation software. It may contain incorrect words, [...] your Primary Care Provider. Call [facility] ([phone]) or report to the closest Emergency Room. Call 911 if necessary. 02/02/18 8879 <Electronically signed by Peng Pastrana MD> Date Peng Pastrana MD Cosigner Signature (If Indicated): Date CC: Patel Veliz MD ACUTE ABDOMEN INC Observed: 02/01/2018 Status: F Source: [place] CHEST 3:11 PM [facility] REPOSITORY [facility] Imaging Services [address] [place] [address] Acute Abdomen Inc Chest MR#: [id number] Acct: [id number] Name: XANDER RAMIREZ Rep #: [id number] : 1950 F 67 From: Micha Pedraza MD PCP: Jose Alfredo LEACH,Patel Garvey Status: REG ER Study: Acute Abdomen Inc Chest Date of Exam: 02/01/18 Exam# [id number] Ordering Dr: Peng Pastrana MD STUDY: X-RAY [...] CC: Peng Pastrana MD; Patel Veliz MD Edge Burnisher: Signed URINALYSIS, COMPLETE Collected: 02/01/2018 Status: F Source: [place] 2:30 PM [facility] REPOSITORY Order Comment: How was Urine Obtained? [...] URINE SEEN Performed By: #### L400.0001 #### [facility] [address] [place], [place], [address] CBC W/DIFF, AUTOMATED Collected: 02/01/2018 Status: F Source: [place] 2:15 PM [facility] REPOSITORY TYPE CODE TESTS RESULT OUT OF [...] Lymph 1.75 Performed By: #### L100.0100 #### [facility] [address] [place], [address] BASIC METABOLIC Collected: 02/01/2018 Status: F Source: [place] PROFILE ([facility]) 2:15 PM [facility] REPOSITORY TYPE CODE TESTS RESULT OUT OF [...] GAP 7 Performed By: #### L500.2500 #### [facility] [address] [facility] [place], [address] EMERGENCY DEPARTMENT Observed: 01/30/2018 Status: F Source: [place] SUMMARY 4:34 PM [facility] REPOSITORY [facility] Medical Records Department [address] [place] [address] Emergency Department Summary 01/30/18 0720 MR#: [id number] Acct: [id number] Name: XANDER RAMIREZ Rep #: [id number] : 1950 67 From: Daniel Connolly DO PCP: Jose Alfredo LEACH,Patel Garvey Status: DEP [...] 1. Constipation This note was generated with Alo7 dictation software. It may contain incorrect words, [...] your Primary Care Provider. Call [facility] ([phone]) or report to the closest Emergency Room. Call 911 if necessary. 01/30/18 9799 <Electronically signed by Daniel Connolly DO> Date Daniel Connolly DO Cosigner Signature (If Indicated): Date CC: Patel Veliz MD ABDOMEN SINGLE VIEW Observed: 01/30/2018 Status: F Source: [place] 7:08 AM [facility] REPOSITORY [facility] Imaging Services [address] [place] [address] Abdomen Single View MR#: [id number] Acct: [id number] Name: XANDER RAMIREZ Rep #: [id number] : 1950 F 67 From: Tami Ramirez MD PCP: Patel Veliz MD, Chi Status: REG ER Study: Abdomen Single View Date of Exam: 01/30/18 Exam# [id number] Ordering Dr: Daniel Connolly DO STUDY: X-RAY [...] support , CC: Daniel Connolly DO; Patel Velzi MD Edge Burnisher: Signed EMERGENCY DEPARTMENT Observed: 12/23/2017 Status: F Source: [place] SUMMARY 1:20 AM [facility] REPOSITORY [facility] Medical Records Department [address] [place] [address] Emergency Department Summary 12/22/17 2334 MR#: [id number] Acct: [id number] Name: XANDER RAMIREZ Rep #: [id number] : 1950 67 From: Peng Pastrana MD [...] 1. Constipation. This note was generated with Alo7 dictation software. It may contain incorrect words, [...] your Primary Care Provider. Call [facility] ([phone]) or report to the closest Emergency Room. Call 911 if necessary. 12/23/17 0120 <Electronically signed by Peng Pastrana MD> Date Peng Pastrana MD Cosigner Signature (If Indicated): Date CC: Patel Veliz MD ACUTE ABDOMEN INC Observed: 12/22/2017 Status: F Source: [place] CHEST 10:20 PM [facility] REPOSITORY [facility] Imaging Services [address] [place] [address] Acute Abdomen Inc Chest MR#: [id number] Acct: [id number] Name: XANDER RAMIREZ Rep #: [id number] : 1950 F 67 From: Yordy Walter MD PCP: Patel Veliz MD, Chi Status: REG ER Study: Acute Abdomen Inc Chest Date of Exam: 12/22/17 Exam# [id number] Ordering Dr: Peng Pastrana MD STUDY: X-RAY [...] loading of colonic loops Electronically Signed: Yordy Walter, at 23:53 EDT Tel , Service support , RAD/Acute Abdomen Inc Chest CC: Peng Pastrana MD; Patel Veliz MD Edge Burnisher: Signed 12 LEAD ELECTROCARDIOGRAM Observed: 12/22/2017 Status: F Source: [place] 2:30 PM [facility] REPOSITORY [facility] Cardiovascular Services [address] [place] [address] 12 Lead EKG 12/20/17 1855 MR#: [id number] Acct: [id number] Name: XANDER RAMIREZ Rep #: [id number] : 1950 67 From: Tank Hernandez MD [...] ECG Confirmed by TANK HERNANDEZ MD ([id number]), website/blog editor GOPI RAMIREZ ([id number]) on 12/22/2017 2:30:29 PM Referred By: TL Confirmed By:TANK HERNANDEZ MD 12/22/17 1430 Date Tank Hernandez MD CC: Patel Veliz MD; Lukasz Coto Signed EMERGENCY DEPARTMENT Observed: 12/21/2017 Status: F Source: [place] SUMMARY 4:40 PM [facility] REPOSITORY [facility] Medical Records Department [address] [place] [address] Emergency Department Summary 12/20/17 1217 MR#: [id number] Acct: [id number] Name: XANDER RAMIREZ Rep #: [id number] : 1950 67 From: Wayne Hi MD [...] back pain This note was generated with nDreamsation software. It may contain incorrect words, spelling, [...] your Primary Care Provider. Call [facility] ([phone]) or report to the closest Emergency Room. Call 911 if necessary. 12/21/17 1640 <Electronically signed by Wayne Hi MD> Date Wayne Hi MD Cosigner Signature (If Indicated): Date CC: Patel Veliz MD EMERGENCY DEPARTMENT Observed: 12/20/2017 Status: F Source: [place] SUMMARY 8:11 PM [facility] REPOSITORY [facility] Medical Records Department [address] [place] [address] Emergency Department Summary 12/20/17 1851 MR#: [id number] Acct: [id number] Name: XANDER RAMIREZ Rep #: [id number] : 1950 67 From: Lukasz Verde PCP: Patel Veliz MD, Chi Status: REG [...] chest pain This note was generated with Alo7 dictation software. It may contain incorrect words, [...] your Primary Care Provider. Call [facility] ([phone]) or report to the closest Emergency Room. Call 911 if necessary. 12/20/172010 <Electronically signed by Lukasz Verde> Date Lukasz Chica DO Cosigner Signature (If Indicated): Date CC: Patel Veliz MD CBC W/DIFF, AUTOMATED Collected: 12/20/2017 Status: F Source: [place] 6:55 PM [facility] REPOSITORY TYPE CODE TESTS RESULT OUT OF [...] Lymph 2.74 Performed By: #### L100.0100 #### [facility] [address] [place], [address] BASIC METABOLIC Collected: 12/20/2017 Status: F Source: [place] PROFILE (BMP) 6:55 PM [facility] REPOSITORY TYPE CODE TESTS RESULT OUT OF [...] 11 Performed By: #### L500.2500, L501.4010 #### [facility] [address] [place], [address] TROPONIN-I Collected: 12/20/2017 Status: F Source: [place] 6:55 PM [facility] REPOSITORY TYPE CODE TESTS RESULT OUT OF RANGE REFERENCE UNITS LAB L501.4010 <0.045 ng/mL Normal < 0.015 TROPONIN-I Result Comment: TROPONIN-I EXPECTED VALUES <0.045 Negative 0.045 - 0.590 Consistent with Cardiac Damage > OR = 0.600 Critical Value Not every elevated troponin is indicative of UT. These values should be used with clinical judgement in examining the patient's clinical picture for diagnosis. To establish a diagnosis of UT versus myocardial injury, there must be a demonstrated rise and/or fall in the troponin values, in addition to ischemic symptoms, EKG changes, new regional wall motion abnormality, and/or angiographical evidence. PLEASE NOTE: REFERENCE RANGES EDITED 17 Performed By: #### L500.2500, L501.4010 #### [facility] [address] [facility] [place], [address] CHEST PA AND LATERAL Observed: 12/20/2017 Status: F Source: [place] 6:46 PM [facility] REPOSITORY [facility] Imaging Services [address] [place] [address] Chest PA and Lateral MR#: [id number] Acct: [id number] Name: XANDER RAMIREZ Rep #: [id number] : 1950 F 67 From: Terrance Lara MD PCP: Patel Veliz MD, Chi Status: DEP ER Study: Chest PA and Lateral Date of Exam: 12/20/17 Exam# [id number] Ordering Dr: Lukasz Coto DO STUDY: X-RAY [...] , CC: Patel Veliz MD; Lukasz Coto Edge Burnisher: Signed DISCHARGE INSTRUCTION Observed: 12/04/2017 Status: F Source: [place] 7:49 AM [facility] REPOSITORY [facility] Medical Records Department [address] [place] [address] Discharge Instruction 12/04/17 0748 MR#: [id number] Acct: [id number] Name: XANDER RAMIREZ Rep #: [id number] : 1950 67 From: Harley Garcia MD [...] your Primary Care Provider. Call [facility] ([phone]) or report to the closest Emergency Room. Call 911 if necessary. 12/04/17 0749 <Electronically signed by Harley Garcia MD> Date Harley Garcia MD Cosigner Signature (If Indicated): Date CC: Patel Veliz MD EMERGENCY DEPARTMENT Observed: 12/04/2017 Status: F Source: [place] SUMMARY 7:48 AM [facility] REPOSITORY [facility] Medical Records Department [address] [place] [address] Emergency Department Summary 12/04/17 0709 MR#: [id number] Acct: [id number] Name: XANDER RAMIREZ Rep #: [id number] : 1950 67 From: Harley Garcia MD [...] back pain This note was generated with Alo7 dictation software. It may contain incorrect words, [...] problems, contact your Primary Care Provider. Call [facility] ([phone]) or report to the closest Emergency Room. Call 911 if necessary. 12/04/17 0748 <Electronically signed by Harley Garcia MD> Date Harley Garcia MD Cosigner Signature (If Indicated): Date __ CC: Patel Veliz MD EMERGENCY DEPARTMENT Observed: 12/02/2017 Status: F Source: [place] SUMMARY 10:20 PM [facility] REPOSITORY [facility] Medical Records Department [address] [place] [address] Emergency Department Summary 12/02/17 0518 MR#: [id number] Acct: [id number] Name: XANDER RAMIREZ Rep #: [id number] : 1950 67 From: Abelardo Grant MD [...] leg pain This note was generated with nDreamsation software. It may contain incorrect words, spelling, [...] your Primary Care Provider. Call [facility] ([phone]) or report to the closest Emergency Room. Call 911 if necessary. 12/02/172219 <Electronically signed by Abelardo Grant MD> Date Abelardo Grant MD Cosigner Signature (If Indicated): Date CC: Patel Veliz MD DISCHARGE INSTRUCTION Observed: 12/02/2017 Status: F Source: [place] 10:20 PM [facility] REPOSITORY [facility] Medical Records Department [address] [place] [address] Discharge Instruction 12/02/17 0610 MR#: [id number] Acct: [id number] Name: XANDER RAMIREZ Rep #: [id number] : 1950 67 From: Abelardo Grant MD [...] your Primary Care Provider. Call [facility] ([phone]) or report to the closest Emergency Room. Call 911 if necessary. 12/02/172219 <Electronically signed by Abelardo Grant MD> Date Abelardo Grant MD Cosigner Signature (If Indicated): Date CC: Patel Veliz MD 12 LEAD ELECTROCARDIOGRAM Observed: 11/11/2017 Status: F Source: [place] 11:07 AM [facility] REPOSITORY [facility] Cardiovascular Services [address] [place] [address] 12 Lead EKG 11/07/17 1236 MR#: [id number] Acct: [id number] Name: XANDER RAMIREZ Rep #: [id number] : 1950 67 From: Saulo Moss MD Attending Dr: Dariusz Gilmore DO Status: DIS IN Ordering Dr: Daniel Connolly DO Date: 11/07/17 [place] [facility] F C Admitted: [...] (limb leads) Confirmed by JAMES LEACH, SAULO ([id number]), website/blog editor GOPI RAMIREZ ([id number]) on 11/11/2017 11:07:01 AM Referred By: Georgiana Andujar Confirmed By:SAULO MOSS MD 11/11/17 1107 Date Saulo Moss MD CC: Daniel Connolly DO; Dariusz Gilmore DO; Patel Veliz MD Signed EMERGENCY DEPARTMENT Observed: 11/09/2017 Status: F Source: [place] SUMMARY 8:27 AM [facility] REPOSITORY [facility] Medical Records Department [address] [place] [address] Emergency Department Summary 11/07/17 1558 MR#: [id number] Acct: [id number] Name: XANDER RAMIREZ Rep #: [id number] : 1950 67 From: Daniel Connolly DO PCP: Patel Veliz MD, Chi Status: DIS IN - ER Visit Summary [...] She requested something for pain and given [place]. Given the metabolic acidosis which I am attributing to starvation ketosis has occurred over the past several days her plan will be admission. Impression: 1. Metabolic acidosis 2. Starvation ketosis 3. Hypoglycemia This note was generated with Alo7 dictation software. It may contain incorrect words, spelling, and punctuation that were not noted in review of the chart prior to signing ED Disposition - Plan for ED Patient: Disposition: Acute Care Hospital [facility] Chief Complaint: General Illness What to do if you have Problems For any increased pain, shortness of breath, bleeding, nausea or vomiting, chest pain, or any unexpected problems, contact your Primary Care Provider. Call [facility] ([phone]) or report to the closest Emergency Room. Call 911 if necessary. 11/09/17 0827 <Electronically signed by Daniel Connolly DO> Date Daniel Connolly DO Cosigner Signature (If Indicated): Date CC: Patel Veliz MD DISCHARGE SUMMARY Observed: 11/08/2017 Status: F Source: [place] 4:40 PM [facility] REPOSITORY [facility] Medical Records Department [address] [place] [address] Discharge Summary 11/08/17 1244 MR#: [id number] Acct: [id number] Name: XANDER RAMIREZ Rep #: [id number] : 1950 67 From: Tavo MARTINEZ PCP: Jose Alfredo LEACH,Patel Garvey Status: DIS IN Y Location: [place] [address]-1 Discharge Date and Diagnosis - Problem List [...] comfortably NAD Psych: A/Ox3 normal affect HEENT: PEARRLA AT NC Neck: Supple NT CV: RRR [...] applicable 11/08/17 1251 <Electronically signed by Tavo Patino PA> Date Tavo MARTINEZ 11/08/17 1640<Electronically signed by Dariusz Gilmore DO> Cosigner Signature (if applicable): Date Dariusz Gilmore DO CC: JUAN Patino; Dariusz Gilmore DO; Patel Veliz MD Signed DISCHARGE INSTRUCTION Observed: 11/08/2017 Status: F Source: [place] 11:56 AM [facility] REPOSITORY [facility] Medical Records Department [address] [place] [address] Instructions for Home/Discharge Instructions 11/08/17 1153 MR#: [id number] Acct: [id number] Name: XANDER RAMIREZ Rep #: [id number] : 1950 67 From: Tavo MARTINEZ PCP: [...] 1 week Proposed Discharge Date: 11/08/17 11/08/17 1156 <Electronically signed by Tavo MARTINEZ> Date Tavo MARTINEZ CC: Patel Veliz MD BEDSIDE GLUCOSE Collected: 11/08/2017 Status: F Source: [place] 11:34 AM [facility] REPOSITORY TYPE CODE TESTS RESULT OUT OF REFERENCE UNITS RANGE LAB L501.080 70-110 mg/dL High BEDSIDE GLU 207 Result Comment: MANAGEMENT OF PATIENT CARE PER NURSING PROTOCOL Performed By: #### L501.080 #### [facility] Point of Care [address] [place] [address] BEDSIDE GLUCOSE Collected: 11/08/2017 Status: F Source: [place] 6:12 AM [facility] REPOSITORY TYPE CODE TESTS RESULT OUT OF RANGE REFERENCE UNITS LAB L501.080 70-110 mg/dL Normal BEDSIDE GLU 90 Result Comment: MANAGEMENT OF PATIENT CARE PER NURSING PROTOCOL Performed By: #### L501.080 #### [facility] Point of Care [address] [place] [address] CBC W/DIFF, AUTOMATED Collected: 11/08/2017 Status: F Source: [place] 5:30 AM [facility] REPOSITORY TYPE CODE TESTS RESULT OUT OF [...] Lymph 2.61 Performed By: #### L100.0100 #### [facility] [address] [place], [address] COMPREHENSIVE METABOLIC Collected: 11/08/2017 Status: F Source: [facility] 5:30 AM [facility] REPOSITORY TYPE CODE TESTS RESULT OUT OF [...] GAP 9 Performed By: #### L500.4050 #### [facility] [address] [place], [place], [address] BEDSIDE GLUCOSE Collected: 11/07/2017 Status: F Source: [place] 10:01 PM [facility] REPOSITORY TYPE CODE TESTS RESULT OUT OF REFERENCE UNITS RANGE LAB L501.080 70-110 mg/dL High BEDSIDE GLU 182 Result Comment: MANAGEMENT OF PATIENT CARE PER NURSING PROTOCOL Performed By: #### L501.080 #### [facility] Point of Care [address] [place], [place] [address] URINE DRUG SCREEN Collected: 11/07/2017 Status: F Source: [place] (VISTA) 6:18 PM [facility] REPOSITORY Order Comment: List of Drugs Taken [...] Normal NEGATIVE Performed By: #### L505.5000 #### [facility] [address] [facility] [place], [address] BEDSIDE GLUCOSE Collected: 11/07/2017 Status: F Source: [place] 6:14 PM [facility] REPOSITORY TYPE CODE TESTS RESULT OUT OF RANGE REFERENCE UNITS LAB L501.080 70-110 mg/dL Normal BEDSIDE GLU 72 Result Comment: MANAGEMENT OF PATIENT CARE PER NURSING PROTOCOL Performed By: #### L501.080 #### [facility] Point of Care [address] [facility] [place] [address] HISTORY AND PHYSICAL Observed: 11/07/2017 Status: F Source: [place] EXAM 5:28 PM [facility] REPOSITORY [facility] Medical Records Department [address] [place] [address] History and Physical 11/07/17 1537 MR#: [id number] Acct: [id number] Name: XANDER RAMIREZ Rep #: [id number] : 1950 67 From: Tavo MARTINEZ PCP: Jose Alfredo LEACH,Patel [facility] Status: ADM IN Y Location: [address] ADDENDUM by Arielle Hensley on 11/07/17 at [...] Anxiety and Depression/Insomnia who presents to the [facility] ED on 11/07/17 with history [...] Anxiety and Depression/Insomnia who presents to the [facility] ED on 11/07/17 with history [...] Prophylaxis: SCDs, lovenox. Inpatient E AND M: [id number] Init Hosp L3 11/07/17 1728 <Electronically signed by Arielle Hensley > Date [...] She developed severe all over body pain Kenny. She has still been functioning at home [...] tube removal. 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 Generalized [...] under the supervision of Dr. Hensley. 11/07/17 3694 <Electronically signed by Tavo MARTINEZ> Date Tavo MARTINEZ 11/07/17 1711<Electronically signed by Arielle Hensley > Cosigner Signature: Date (if applicable) Arielle Hensley CC: JUAN Patino; Arielle Hensley; Patel Veliz MD Signed Observed: 11/07/2017 Status: F Source: [place] RESPIRATORY PANEL 5:15 PM [facility] MOLECULAR REPOSITORY RP PANEL ADENOVIRUS Not Detected [...] acid amplification Performed By: #### M100.638 #### [facility] [address] [facility] [place], [place], [address] ACETAMINOPHEN (TYLENOL) Collected: 11/07/2017 Status: F Source: [place] LEVEL 4:55 PM [facility] REPOSITORY TYPE CODE TESTS RESULT OUT OF REFERENCE UNITS RANGE LAB L501.8400 10.0-30.0 ug/mL ACETAMINOPHEN Low < 2.0 Performed By: #### L501.8400, L501.8500, L501.9100 #### [facility] [address] [place], [address] PHENOBARBITAL Collected: 11/07/2017 Status: F Source: [place] 4:55 PM [facility] REPOSITORY TYPE CODE TESTS RESULT OUT OF RANGE REFERENCE UNITS LAB L501.8500 10.0-40.0 ug/mL Normal PHENOBARB 12.9 Performed By: #### L501.8400, L501.8500, L501.9100 #### [facility] [address] [place], [address] ALCOHOL, BLOOD Collected: 11/07/2017 Status: F Source: [place] (MEDICAL)-SERUM 4:55 PM [facility] REPOSITORY TYPE CODE TESTS RESULT OUT OF [...] Performed By: #### L501.8400, L501.8500, L501.9100 #### [facility] [address] [place], [address] AMMONIA Collected: 11/07/2017 Status: F Source: [place] 4:55 PM [facility] REPOSITORY TYPE CODE TESTS RESULT OUT OF RANGE REFERENCE UNITS LAB L503.5510 11-32 umol/L Normal AMMONIA 32.0 Performed By: #### L503.5510 #### [facility] [address] [place], [address] ABDOMEN SINGLE VIEW Observed: 11/07/2017 Status: F Source: [place] 3:53 PM [facility] REPOSITORY [facility] Imaging Services [address] [place] [address] Abdomen Single View MR#: [id number] Acct: [id number] Name: XANDER RAMIREZ Rep #: [id number] : 1950 F 67 From: Rocco Christiansen MD PCP: Jose Alfredo LEACH,Patel Garvey Status: ADM IN Study: Abdomen Single View Date of Exam: 11/07/17 Exam# [id number] Ordering Dr: Tavo Patino STUDY: X-RAY - [...] , CC: JUAN Patino; Patel Veliz MD Edge Burnisher: Signed LACTIC ACID Collected: 11/07/2017 Status: F Source: [place] 2:10 PM [facility] REPOSITORY Order Comment: Yes/No query for Sepsis Lactate Rule Y TYPE CODE TESTS RESULT OUT OF RANGE REFERENCE UNITS LAB L503.6005 0.4-2.0 mmol/L Normal LACTIC ACID 0.8 Performed By: #### L503.6005 #### [facility] [address] [place], [address] BLOOD GASES BY [facility] Collected: 11/07/2017 Status: F Source: [place] 1:46 PM [facility] REPOSITORY TYPE CODE TESTS RESULT OUT OF RANGE REFERENCE UNITS LAB L9000.9990 Normal BLD GAS TYPE ART LAB L9001.1000 L Normal SITE Brachial LAB L9001.1010 NA Normal AISHA TEST LAB L9001.1050 O2 Normal Delivery Dev Room Air LAB L9001.1104 ED Normal Results To LAB L9001.1105 Normal Time Given 1345 LAB [...] SO2 ISTAT Performed By: #### L9000.0800 #### [facility] Point of Care [address] [facility] [place] [address] ACETONE SERUM Collected: 11/07/2017 Status: F Source: [place] 1:40 PM [facility] REPOSITORY TYPE CODE TESTS RESULT OUT OF REFERENCE UNITS RANGE LAB L501.6900 NEG High ACETONE SERUM MODERATE Performed By: #### L501.6900, L501.7700 #### [facility] [address] [place], [address] PHENYTOIN (DILANTIN) Collected: 11/07/2017 Status: F Source: [facility] 1:40 PM [facility] REPOSITORY TYPE CODE TESTS RESULT OUT OF REFERENCE UNITS RANGE LAB L501.7700 10.0-20.0 mL Low PHENYTOIN 7.9 Performed By: #### L501.6900, L501.7700 #### [facility] [address] [facility] [place], [address] URINALYSIS, COMPLETE Collected: 11/07/2017 Status: F Source: [place] 1:00 PM [facility] REPOSITORY Order Comment: How was Urine Obtained? [...] MUCUS, URINE Performed By: #### L400.0001 #### [facility] [address] [place], [address] CBC W/DIFF, AUTOMATED Collected: 11/07/2017 Status: F Source: [place] 12:05 PM [facility] REPOSITORY TYPE CODE TESTS RESULT OUT OF [...] Lymph 1.64 Performed By: #### L100.0100 #### [facility] [address] [place], [address] COMPREHENSIVE METABOLIC Collected: 11/07/2017 Status: F Source: [facility] 12:05 PM [facility] REPOSITORY TYPE CODE TESTS RESULT OUT OF [...] Performed By: #### L500.4050, L501.2450, L501.4010 #### [facility] [address] [facility] [place], [place], [address] LIPASE Collected: 11/07/2017 Status: F Source: [place] 12:05 [facility] REPOSITORY TYPE CODE TESTS RESULT OUT OF REFERENCE UNITS RANGE LAB L501.2450 73-393 U/L Low LIPASE 49 Performed By: #### L500.4050, L501.2450, L501.4010 #### [facility] [address] [facility] [place], [address] TROPONIN-I Collected: 11/07/2017 Status: F Source: [place] 12:05 [facility] REPOSITORY TYPE CODE TESTS RESULT OUT OF RANGE REFERENCE UNITS LAB L501.4010 <0.045 ng/mL Normal < 0.015 TROPONIN-I Result Comment: TROPONIN-I EXPECTED VALUES <0.045 Negative 0.045 - 0.590 Consistent with Cardiac Damage > OR = 0.600 Critical Value Not every elevated troponin is indicative of UT. These values should be used with clinical judgement in examining the patient's clinical picture for diagnosis. To establish a diagnosis of UT versus myocardial injury, there must be a demonstrated rise and/or fall in the troponin values, in addition to ischemic symptoms, EKG changes, new regional wall motion abnormality, and/or angiographical evidence. PLEASE NOTE: REFERENCE RANGES EDITED 17 Performed By: #### L500.4050, L501.2450, L501.4010 #### [facility] [address] [place], [address] PHOSPHORUS Collected: 11/07/2017 Status: F Source: [place] 12:05 PM [facility] REPOSITORY TYPE CODE TESTS RESULT OUT OF RANGE REFERENCE UNITS LAB L501.2300 2.5-4.9 mg/dL Normal PHOS 2.5 Performed By: #### L501.2300, L501.5200 #### [facility] [address] [place], [address] MAGNESIUM Collected: 11/07/2017 Status: F Source: [place] 12:05 PM [facility] REPOSITORY TYPE CODE TESTS RESULT OUT OF RANGE REFERENCE UNITS LAB L501.5200 1.6-2.6 mg/dL Normal MG 2.3 Performed By: #### L501.2300, L501.5200 #### [facility] [address] [place], [address] CHEST PA AND LATERAL Observed: 11/07/2017 Status: F Source: [place] 11:35 AM [facility] REPOSITORY [facility] Imaging Services [address] [place] [address] Chest PA and Lateral MR#: [id number] Acct: [id number] Name: XANDER RAMIREZ Rep #: [id number] : 1950 F 67 From: Isaias Munroe MD PCP: Jose Alfredo LEACH,Patel Chi Status: REG ER Study: Chest PA and Lateral Date of Exam: 11/07/17 Exam# [id number] Ordering Dr: Daniel Connolly DO STUDY: X-RAY [...] Isaias Munroe MD at 13:23 EDT Tel [phone], Service support , CC: Daniel Connolly DO; Patel Veliz MD Edge Burnisher: Signed URINE DRUG SCREEN Collected: 11/03/2017 Status: F Source: [place] (VISTA) 3:15 PM [facility] REPOSITORY Order Comment: Comments: [id number] URINE DRUG SCREEN RUN LOWEST TEST List [...] Normal NEGATIVE Performed By: #### L505.5000 #### [facility] [address], [address] MISCELLANEOUS LAB Collected: 11/03/2017 Status: F Source: [place] PROCEDURE 3:15 PM [facility] REPOSITORY Order Comment: Comments: [id number] URINE DRUG SCREEN RUN LOWEST TEST Test(s) Ordered: [id number] URINE DRUG SCREEN RUN LOWEST TEST TYPE CODE TESTS RESULT OUT OF RANGE REFERENCE UNITS LAB L801.1541 Normal [facility] TEST Result Comment: TEST RESULT UNITS REF INTERVAL [id number] 6+Oxycodone-Bund Amphetamines, Urine Negative ng/mL Nbfgch=2490 Amphetamine test includes Amphetamine and Methamphetamine. Barbiturates Positive Rzcpog=467 Amobarbital Negative Hgfkfp=471 Secobarbital Negative Tnneqa=790 Butalbital Negative Llfkad=859 Pentobarbital Negative Wzcrxk=180 Phenobarbital Positive Phenobarbital GC/MS Conf >3000 ng/mL Mbjlyv=592 Benzodiazepines Negative ng/mL Vnbpua=320 Cannabinoids Negative ng/mL Cutoff=20 Cocaine (Metabolite) Negative ng/mL Acjlqz=385 Opiates Negative ng/mL Uvghsp=980 Opiate test includes Codeine, Morphine, Hydromorphone, Hydrocodone. Oxycodone/Oxymorphone, Urine Negative ng/mL Ahwvhh=158 Test includes Oxycodone and Oxymorphone TESTING PERFORMED AT [facility]. ORIGINAL REPORT ON FILE IN LAB CONTAINS ADDITIONAL TEST SITE INFORMATION. Performed By: #### L801.1541 #### [facility] [address] [place], [address] MISCELLANEOUS LAB Collected: 11/03/2017 Status: F Source: [place] PROCEDURE 2 3:15 PM [facility] REPOSITORY Order Comment: Comments: [id number] URINE DRUG SCREEN RUN LOWEST TEST List Test(s) Ordered by Physician: [id number] METHADONE URINE TYPE CODE TESTS RESULT OUT OF RANGE REFERENCE UNITS LAB L801.1543 Normal [facility] TEST 2 Result Comment: TEST RESULT LIMITS Methadone Screen, Urine Methadone Screen, Urine Positive ng/mL Nxcgtv=637 Please Note: This assay provides a preliminary unconfirmed analytical test result that may be suitable for clinical management of patients in certain situations. Drug-test results should be interpreted in the context of clinical information. Patient metabolic variables, specific drug chemistry, and specimen characteristics can affect test outcome. Technical consultation is available if a test result is inconsistent with an expected outcome. ([email or web address] or call toll-free [phone]) TESTING PERFORMED AT [facility]. ORIGINAL REPORT ON FILE IN LAB CONTAINS ADDITIONAL TEST SITE INFORMATION. Performed By: #### L801.1543 #### [facility] [address] [place], [address] 12 LEAD ELECTROCARDIOGRAM Observed: 09/06/2017 Status: F Source: [place] 3:20 PM [facility] REPOSITORY [facility] Cardiovascular Services [address] [place] [address] 12 Lead EKG 09/04/17 2142 MR#: [id number] Acct: [id number] Name: XANDER RAMIREZ Rep #: [id number] : 1950 67 From: Tank Hernandez MD [...] ECG Confirmed by TANK HERNANDEZ MD ([id number]), website/blog editor GOPI RAMIREZ ([id number]) on 09/06/2017 3:20:10 PM Referred By: GINGER Confirmed By:TANK HERNANDEZ MD 09/06/17 1520 Date Tank Hernandez MD CC: Sheng Melendez MD; Patel Veliz MD Signed EMERGENCY DEPARTMENT Observed: 09/05/2017 Status: F Source: [place] SUMMARY 6:52 PM [facility] REPOSITORY [facility] Medical Records Department [address] [place] [address] Emergency Department Summary 09/05/17 1136 MR#: [id number] Acct: [id number] Name: XANDER RAMIREZ Rep #: [id number] : 1950 67 From: Peng Pastrana MD [...] it came back as forwarded to your desktop administrator. The patient is in pain management and on methadone. Treatment Plan: Patient will be discharged with Anusol HC and instructed to follow-up with Dr. Taylor in 1-2 weeks if not improving. Disposition: To home in improved and stable condition. Impression: 1. External hemorrhoids. 2. Opiate seeking behavior. This note was generated with Alo7 dictation software. It may contain incorrect words, [...] problems, contact your Primary Care Provider. Call [facility] ([phone]) or report to the closest Emergency Room. Call 911 if necessary. 09/05/17 185 <Electronically signed by Peng Pastrana MD> Date Peng Pastrana MD Cosigner Signature (If Indicated): Date CC: Patel Veliz MD EMERGENCY DEPARTMENT Observed: 09/05/2017 Status: F Source: [place] SUMMARY 7:00 AM [facility] REPOSITORY [facility] Medical Records Department [address] [place] [address] Emergency Department Summary 09/04/17 2227 MR#: [id number] Acct: [id number] Name: XANDER RAMIREZ Rep #: [id number] : 1950 67 From: Sheng Melendez MD [...] of 89 with no acute signs of UT or ischemia unchanged from prior EKGs from [...] Acute hemorrhoids This note was generated with Alo7 dictation software. It may contain incorrect words, [...] your Primary Care Provider. Call [facility] ([phone]) or report to the closest Emergency Room. Call 911 if necessary. 09/05/17 0700 <Electronically signed by Sheng Melendez MD> Date Sheng Melendez MD Cosigner Signature (If Indicated): Date CC: Patel Veliz MD DISCHARGE INSTRUCTION Observed: 09/05/2017 Status: F Source: [place] 7:00 AM [facility] REPOSITORY [facility] Medical Records Department [address] [place] [address] Discharge Instruction 09/05/17 0002 MR#: [id number] Acct: [id number] Name: XANDER RAMIREZ Rep #: [id number] : 1950 67 From: Sheng Melendez MD [...] your Primary Care Provider. Call [facility] ([phone]) or report to the closest Emergency Room. Call 911 if necessary. 09/05/17 0700 <Electronically signed by Sheng Melendez MD> Date Sheng Melendez MD Cosigner Signature (If Indicated): Date CC: Patel Veliz MD CBC W/DIFF, AUTOMATED Collected: 09/04/2017 Status: F Source: [place] 10:47 PM [facility] REPOSITORY TYPE CODE TESTS RESULT OUT OF [...] Lymph 2.33 Performed By: #### L100.0100 #### [facility] [address] [place], [place], [address] BASIC METABOLIC Collected: 09/04/2017 Status: F Source: [place] PROFILE (BMP) 10:47 PM [facility] REPOSITORY Order Comment: 'TROP' Serial specimen #1, [...] 11 Performed By: #### L500.2500, L501.4010 #### [facility] [address] [place], [address] TROPONIN-I Collected: 09/04/2017 Status: F Source: [place] 10:47 PM [facility] REPOSITORY Order Comment: 'TROP' Serial specimen #1, #2, #3, or #4: 1 TYPE CODE TESTS RESULT OUT OF RANGE REFERENCE UNITS LAB L501.4010 <0.06 ng/mL Normal < 0.02 TROPONIN-I Result Comment: TROPONIN-I EXPECTED VALUES <0.05 NEGATIVE 0.06 - 0.59 AT RISK OF UT > OR = 0.60 SUGGEST UT Performed By: #### L500.2500, L501.4010 #### [facility] [address] [place], [place], [address] CHEST 1 VIEW Observed: 09/04/2017 Status: F Source: [place] (PORTABLE) 10:26 PM [facility] REPOSITORY [facility] Imaging Services [address] [place] [address] Chest 1 View (Portable) MR#: [id number] Acct: [id number] Name: XANDER RAMIREZ Rep #: [id number] : 1950 F 67 From: Terrance Lara MD PCP: Jose Alfredo LEACH,Patel Garvey Status: REG ER Study: Chest 1 View (Portable) Date of Exam: 09/04/17 Exam# [id number] Ordering Dr: Sheng Melendez MD STUDY: X-RAY [...] CC: Sheng Melendez MD; Patel Veliz MD Edge Burnisher: Signed CBC W/DIFF, AUTOMATED Collected: 08/22/2017 Status: F Source: [place] 3:37 PM [facility] REPOSITORY TYPE CODE TESTS RESULT OUT OF [...] Lymph 2.30 Performed By: #### L100.0100 #### [facility] [address] [facility] [place], [place], [address] VITAMIN D,25 HYDROXY Collected: 08/22/2017 Status: F Source: [place] 3:37 PM [facility] REPOSITORY TYPE CODE TESTS RESULT OUT OF REFERENCE UNITS RANGE LAB L506.1000 29.95-100.01 ng/mL Low Vitamin D 16.2 25-OH Result Comment: Vitamin D 25(OH) Status Range Deficiency <20 ng/mL (50nmol/L) Insuffciency 20 - 30 ng/mL (50 - 75 nmol/L) Sufficiency 30 - 100 ng/mL (75 - 250 nmol/L) Toxicity >100 ng/mL (>250 nmol/L) Performed By: #### L506.1000 #### [facility] [address] [facility] [address] [address] [place], [place], [address] COMPREHENSIVE METABOLIC Collected: 08/22/2017 Status: F Source: [facility] 3:37 PM [facility] REPOSITORY TYPE CODE TESTS RESULT OUT OF [...] 9 Performed By: #### L500.4050, L501.9520 #### [facility] [address] [place], [place], [address] THYROID STIM HORMONE Collected: 08/22/2017 Status: F Source: [place] (TSH) 3:37 PM [facility] REPOSITORY TYPE CODE TESTS RESULT OUT OF RANGE REFERENCE UNITS LAB L501.9520 0.358-3.74 uIU/mL Normal TSH 0.96 Performed By: #### L500.4050, L501.9520 #### [facility] [address] [place], [place], [address] HEPATITIS C ANTIBODIES Collected: 08/22/2017 Status: F Source: [place] 3:37 PM [facility] REPOSITORY TYPE CODE TESTS RESULT OUT OF RANGE REFERENCE UNITS LAB L3100.0650 0.0-0.9 s/co ratio Normal HEP C AB <0.1 Result Comment: Negative: < 0.8 Indeterminate: 0.8 - 0.9 Positive: > 0.9 The CDC recommends that a positive HCV antibody result be followed up with a HCV Nucleic Acid Amplification test (119067). Performed at: [facility] [id number] Overweaver: Mark Freire PhD, Phone: [phone] Performed By: #### L3100.0625 #### [facility] (refer to report for specific site) refer to report for address and phone number ALLERGIES ALLERGIES DATE TYPE / CODE NAME / CODE REACTION SEVERITY SOURCE 03/19/2018 Drug Penicillins Anaphylaxis Unknown [facility] Allergy/4160 /[id number] [place] 0294602(SNOMED (RXNORM) Repository CT) 03/19/2018 Drug codeine/F00 Nausea Unknown [facility] Allergy/4160 [id number]([place] 1356102(SNOMED ORM) Repository CT) ENCOUNTERS ENCOUNTERS ADMIT/DISCHARGE ACCOUNT ADMITTING ENCOUNTER LOCATION SOURCE NUMBER CLASS 07/07/2018 [id number] Ambulatory [place] 7 [facility] ing:LAB.FUTUR Repository E 06/19/2018 [id number] Ambulatory [place] 0 [facility] ing:MRI Repository 06/13/2018/ [id number] Agyepong, Inpatient [place] 9 0 [place] Encounter [facility] ing:PCURoom: Repository [id number]: 1 06/13/2018 [id number] [place], Ambulatory BMSBuilding:B [place] 9 [place] [facility] Repository 06/13/2018 [id number] [place], Ambulatory BMSBuilding:B [place] 8 [place] [facility] Repository 06/13/2018 [id number] [place], Ambulatory BMSBuilding:B [place] 4 [place] [facility] Repository 06/13/2018 [id number] [place], Ambulatory BMSBuilding:B [place] 8 [place] [facility] Repository 06/13/2018 [id number] [place], Ambulatory BMSBuilding:B [place] 6 [place] [facility] Repository 06/13/2018 [id number] [place], Ambulatory BMSBuilding:B [place] 4 [place] [facility] Repository 06/13/2018 [id number] [place], Ambulatory BMSBuilding:B [place] 9 [place] [facility] Repository 06/13/2018 [id number] [place], Ambulatory BMSBuilding:B [place] 8 [place] [facility] Repository 06/13/2018 [id number] Agyep[place], Ambulatory BMSBuilding:B [place] 1 [place] [facility] Repository 06/01/2018 [id number] Ambulatory [place] 7 [facility] ing:LAB Repository 05/19/2018 [id number] Ambulatory [place] 1 [facility] ing:RAD Repository 04/26/2018 [id number] Ambulatory [place] 1 [facility] ing:MRI Repository 04/02/2018/ [id number] Emergency [place] 8 2 [facility] ing:ED Repository 03/29/2018/ [id number] Emergency [place] 8 8 [facility] ing:ED Repository 03/19/2018/ [id number] White, Arielle Inpatient [place] 8 2 [facility] ing:PH9Xius: Repository [id number]: 1 03/19/2018 [id number] White, Arielle Ambulatory BMSBuilding:B [place] 5 [facility] Repository 03/19/2018 [id number] White, Arielle Ambulatory BMSBuilding:B [place] 0 [facility] Repository 03/19/2018 [id number] White, Arielle Ambulatory BMSBuilding:B [place] 5 [facility] Repository 03/19/2018 [id number] White, Arielle Ambulatory BMSBuilding:B [place] 5 [facility] Repository 03/14/2018 [id number] Ambulatory [place] 5 [facility] ing:POLAB3 Repository 03/05/2018/ [id number] White, Arielle Inpatient [place] 8 1 Encounter [facility] ing:PCURoom: Repository [id number]: 1 03/05/2018 [id number] White, Arielle Ambulatory BMSBuilding:B [place] 6 [facility] Repository 03/05/2018 [id number] White, Arielle Ambulatory BMSBuilding:B [place] 2 [facility] Repository 03/05/2018 [id number] White, Arielle Ambulatory BMSBuilding:B [place] 1 [facility] Repository 03/05/2018/ [id number] Ambulatory BMSBuilding:W [place] 8 9 [facility] Repository 03/05/2018 [id number] Ambulatory BMSBuilding:W [place] 6 [facility] Repository 03/05/2018 [id number] Ambulatory BMSBuilding:W [place] 7 [facility] Repository 02/24/2018/ [id number] Emergency [place] 8 3 [facility] ing:ED Repository 02/17/2018 [id number] Ambulatory BMSBuilding:B [place] 3 [facility] Repository 02/07/2018/ [id number] Ambulatory BMSBuilding:B [place] 8 9 [facility] Repository 02/01/2018/ [id number] Emergency [place] 8 9 [facility] ing:ED Repository 01/30/2018/ [id number] Emergency [place] 8 8 [facility] ing:ED Repository 12/22/2017/ [id number] Emergency [place] 8 7 [facility] ing:ED Repository 12/20/2017/ [id number] Emergency [place] 8 7 [facility] ing:ED Repository 12/20/2017/ [id number] Emergency [place] 8 8 [facility] ing:ED Repository 12/04/2017/ [id number] Emergency [place] 8 2 [facility] ing:ED Repository 12/02/2017/ [id number] Emergency [place] 8 9 [facility] ing:ED Repository 11/07/2017/ [id number] [place] Inpatient [place] 8 8 Encounter [facility] ing:RZ1Zmka: Repository [id number]: 1 11/07/2017 [id number] [place] Ambulatory BMSBuilding:B [place] 2 [facility] Repository 11/07/2017 [id number] [place] Ambulatory BMSBuilding:B [place] 4 [facility] Repository 11/03/2017 [id number] Ambulatory [place] 9 [facility] ing:LAB Repository 09/05/2017/ [id number] Emergency [place] 8 9 [facility] ing:ED Repository 09/05/2017/ [id number] Emergency [place] 8 6 [facility] ing:ED Repository 09/04/2017/ [id number] Emergency [place] 8 9 [facility] ing:ED Repository 08/22/2017 [id number] Ambulatory [place] 3 [facility] ing:POLAB3 Repository PAYERS PAYERS ENCOUNTER GUARANTOR PAYER SUBSCRIBER SOURCE 07/07/2018 XANDER Hernandez Primary XANDER [place] [id number] E Insurance:[facility] MILLERDOB[facility] [id number] Number: Repository [address]Mcl: [phone]) [id number] [phone] () Date:5840-43-12BQSG CLAIMS [address] [place] [address]NQ: 07/07/2018 Secondary NOT GIVENUNK [place] Insurance:SELF PAY [facility] Number: Effective Repository Date:2018-06-22 06/19/2018 XANDER Hernandez Primary XANDER Hernandez [place] [id number] E Insurance:[employer] MILLERDOB: [place] *IN [facility] [id number], [place] Number: Repository [address]Ybg: 330 [id number] [phone] () Date:2259-49-88EGUL CLAIMS [address] [address]GR: 06/19/2018 Secondary NOT GIVENUNK [place] Insurance:SELF PAY [facility] Number: Effective Repository Date:2018-06-09 06/13/2018 XANDER Hernandez Primary XANDER Hernandez [place] [id number] E Insurance:[employer] MILLERDOB: Community [place] *IN [address], [place] Number: Repository [address]Lle: 330 [id number] [phone] () Date:4858-60-69EBLB CLAIMS [address] [address]KB: 06/13/2018 Secondary NOT GIVENUNK [place] Insurance:SELF PAY [facility] Number: Effective Repository Date:2018-06-13 06/13/2018 XANDER Hernandez Primary XANDER Hernandez [place] [id number] E Insurance:[employer] MILLERDOB: Community [place] *IN [address], [place] Number: Repository [address]Umk: 330 [id number] [phone] () Date:5914-81-88QUOF CLAIMS [address], [place] [address]AZ: 06/13/2018 Secondary NOT GIVENUNK [place] Insurance:SELF PAY [facility] Number: Effective Repository Date:2018-06-13 06/13/2018 XANDER Hernandez Primary XANDER Hernandez [place] [id number] E Insurance:[employer] MILLERDOB: [place] *[place] [address], [place] Number: Repository [address]Tlg: 330 [id number] [phone] (HP) Date:1673-93-24RPZG [place]S [address] [address]WI: 06/13/2018 Secondary NOT GIVENUNK [place] Insurance:SELF PAY [facility] Number: Effective Repository Date:2018-06-13 06/13/2018 XANDER Hernandez Primary XANDER Hernandez [place] [id number] E Insurance:[employer] MILLERDOB: Community [place] *IN [facility] [id number], [place] Number: Repository [address]Xvi: 330 [id number] [phone] (HP) Date:3857-59-84YDNX CLAIMS [address] [address]TO: 06/13/2018 Secondary NOT GIVENUNK [place] Insurance:SELF PAY [facility] Number: Effective Repository Date:2018-06-13 06/13/2018 XANDER Hernandez Primary XANDER Hernandez [place] [id number] E Insurance:[employer] MILLERDOB: [place] *IN [facility] [id number], [place] Number: Repository [id number]: (330 [id number] [phone] (HP) Date:9418-70-52EKOJ CLAIMS [address] [address]TW: 06/13/2018 Secondary NOT GIVENUNK [place] Insurance:SELF PAY [facility] Number: Effective Repository Date:2018-06-13 06/13/2018 XANDER Hernandez Primary XANDER Hernandez [place] [id number] E Insurance:[employer] MILLERDOB: Community [place] *IN [facility] [id number], [place] Number: Repository [address]Cff: (330 [id number] [phone] (HP) Date:7122-74-56IDJJ CLAIMS [address] [address]XI: 06/13/2018 Secondary NOT GIVENUNK [place] Insurance:SELF PAY [facility] Number: Effective Repository Date:2018-06-13 06/13/2018 XANDER Hernandez Primary XANDER Hernandez [place] [id number] E Insurance:[employer] MILLERDOB: Community [place] *IN [facility] [id number], [place] Number: Repository [address]Oux: 330 [id number] [phone] () Date:8584-30-04PMHW CLAIMS [address] [address]AJ: 06/13/2018 Secondary NOT GIVENUNK [place] Insurance:SELF PAY [facility] Number: Effective Repository Date:2018-06-13 06/13/2018 XANDER Hernandez Primary XANDER Hernandez [place] [id number] E Insurance:[employer] MILLERDOB: Community [place] *IN [facility] [id number] Number: Repository [address]Zvz: 330 [id number] [phone] () Date:5381-30-92LWBL CLAIMS [address] [address]NO: 06/13/2018 Secondary NOT GIVENUNK [place] Insurance:SELF PAY [facility] Number: Effective Repository Date:2018-06-13 06/13/2018 XANDER Hernandez Primary XANDER Hernandez [place] [id number] E Insurance:[employer] MILLERDOB: Community [place] *IN [facility] [id number], [place] Number: Repository [address]Avc: 330 [id number] [phone] () Date:9973-96-00NQTI CLAIMS [address] [address]NH: 06/13/2018 Secondary NOT GIVENUNK [place] Insurance:SELF PAY [facility] Number: Effective Repository Date:2018-06-13 06/13/2018 XANDER Hernandez Primary XANDER Hernandez [place] [id number] E Insurance:[employer] MILLERDOB: Community [place] *[place] [address], [place] Number: Repository [address]Pnj: 330 [id number] [phone] (HP) Date:0331-71-24OASK CLAIMS [address] [address]AI: 06/13/2018 Secondary NOT GIVENUNK [place] Insurance:SELF PAY [facility] Number: Effective Repository Date:2018-06-13 06/01/2018 XANDER Hernandez Primary XANDER Hernandez [place] [id number] E Insurance:[employer] MILLERDOB: [place] *[place] [address], [place] Number: Repository [address]Vaj: 330 [id number] [phone] (HP) Date:3028-51-03WSZZ CLAIMS [address] [address]WL: 06/01/2018 Secondary NOT GIVENUNK [place] Insurance:SELF PAY [facility] Number: Effective Repository Date:2018-06-01 05/19/2018 XANDER Hernandez Primary XANDER Hernandez [place] [id number] E Insurance:[employer] MILLERDOB: [place] *IN [address], [place] Number: Repository [address]Ejo: 330 [id number] [phone] () Date:5148-51-68QRWA CLAIMS [address] [address]IH: 05/19/2018 Secondary NOT GIVENUNK [place] Insurance:SELF PAY [facility] Number: Effective Repository Date:2018-05-19 04/26/2018 XANDER Hernandez Primary XANDER Hernandez [place] [id number] E Insurance:[employer] MILLERDOB: Community [place] *[place] [address], [place] Number: Repository [address]Msp: 330 [id number] [phone] (HP) Date:6581-77-29BWII CLAIMS [address] [address]RL: 04/26/2018 Secondary NOT GIVENUNK [place] Insurance:SELF PAY [facility] Number: Effective Repository Date:2018-04-10 04/02/2018 XANDER Hernandez Primary XANDER Hernandez [place] [id number] E Insurance:[employer] MILLERDOB: Community [place] *IN [facility] [id number], [place] Number: Repository [address]Gdo: 330 [id number] [phone] (HP) Date:0272-15-27PNZH CLAIMS [address] [address]OU: 04/02/2018 Secondary NOT GIVENUNK [place] Insurance:SELF PAY [facility] Number: Effective Repository Date:2018-04-02 03/29/2018 XANDER Hernandez Primary XANDER Hernandez [place] [id number] E Insurance:[employer] MILLERDOB: Community [place] *IN [facility] [id number], [place] Number: Repository [address]Zhb: 330 [id number] [phone] (HP) Date:2827-83-70BOOR CLAIMS [address] [address]BK: 03/29/2018 Secondary NOT GIVENUNK [place] Insurance:SELF PAY [facility] Number: Effective Repository Date:2018-03-29 03/19/2018 XANDER Hernandez Primary XANDER Hernandez [place] [id number] E Insurance:[employer] MILLERDOB: Community [address] [place] [facility] [id number], [place] Number: Repository [address]Kfu: 330 [id number] [phone] (HP) Date:6429-26-03JXOM [place]S [address] [address]EP: 03/19/2018 Secondary NOT GIVENUNK Fro[place] Insurance:SELF PAY [facility] Number: Effective Repository Date:2018-03-19 03/19/2018 XANDER Hernandez Primary XANDER Hernandez Fro[place] [id number] E Insurance:MYCARE CRSC MILLERDOB: Community [address] [place] [facility] [id number], [place] Number: Repository [address]Aof: 330 [id number] [phone] () Date:6010-67-27UIBO [address]S [address] [address]UE: 03/19/2018 Secondary NOT GIVENUNK [place] Insurance:SELF PAY [facility] Number: Effective Repository Date:2018-03-19 03/19/2018 XANDER Hernandez Primary XANDER Hernandez Fro[place] [id number] E Insurance:MYCARE CRSC MILLERDOB: Community [address] [facility] [id number], [place] Number: Repository [address]Mro: 330 [id number] [phone] () Date:5705-94-07TRDA CLAIMS [address] [address]LW: 03/19/2018 Secondary NOT GIVENUNK [place] Insurance:SELF PAY [facility] Number: Effective Repository Date:2018-03-19 03/19/2018 XANDER Hernandez Primary XANDER Hernandez Froylan [id number] E Insurance:MYCARE CRSC MILLERDOB: Community [address] [address] [facility] [id number], [place] Number: Repository [address]Sop: 330 [id number] [phone] () Date:7445-57-26XOXM [address]S [address] [address]UE: 03/19/2018 Secondary NOT GIVENUNK [place] Insurance:SELF PAY [facility] Number: Effective Repository Date:2018-03-19 03/19/2018 XANDER Hernandez Primary XANDER Hernandez [place] [id number] E Insurance:MYCARE CRSC MILLERDOB: Community [place] [address] [facility] [id number], [place] Number: Repository [address]Gpl: 330 [id number] [phone] (HP) Date:8561-82-12GULZ [address]S [address] [address]LA: 03/19/2018 Secondary NOT GIVENUNK [place] Insurance:SELF PAY [facility] Number: Effective Repository Date:2018-03-19 03/14/2018 XANDER Hernandez Primary XANDER Hernandez [place] [id number] E Insurance:MYCARE CRSC MILLERDOB: Community [address] [address] [facility] [id number] [place] Number: Repository [address]Udn: 330 [id number] [phone] (HP) Date:3210-62-52PEBQ CLAIMS [address] [address]IS: 03/14/2018 Secondary NOT GIVENUNK [place] Insurance:SELF PAY [facility] Number: Effective Repository Date:2018-03-14 03/05/2018 XANDER Hernandez Primary XANDER Hernandez Fro[place] [id number] E Insurance:MYCARE CRSC MILLERDOB: Community [address] [facility] [id number] [place] Number: Repository [address]Bvr: (330 [id number] [phone] () Date:6979-40-08OPCO [address]S [address] [address]UH: 03/05/2018 Secondary NOT GIVENUNK [place] Insurance:SELF PAY [facility] Number: Effective Repository Date:2018-03-05 03/05/2018 XANDER Hernandez Primary XANDER Hernandez Froylan [id number] E Insurance:MYCARE CRSC MILLERDOB: Community [address] [facility] [id number], [place] Number: Repository [address]Wte: (330 [id number] [phone] (HP) Date:8828-32-12BIDM [address]S [address] [address]CZ: 03/05/2018 Secondary NOT GIVENUNK [place] Insurance:SELF PAY [facility] Number: Effective Repository Date:2018-03-05 03/05/2018 XANDER Hernandez Primary XANDER Hernandez Froylan [id number] E Insurance:MYCARE CRSC MILLERDOB: Community [address] [facility] [id number], [place] Number: Repository [address]Ryo: 330 [id number] [phone] () Date:2774-57-01OINS CLAIMS [address] [address]GF: 03/05/2018 Secondary NOT GIVENUNK [place] Insurance:SELF PAY [facility] Number: Effective Repository Date:2018-03-05 03/05/2018 XANDER Hernandez Primary XANDER Hernandez [place] [id number] E Insurance:MYCARE CRSC MILLERDOB: Community [address] [facility] [id number], [place] Number: Repository [address]Fcq: 330 [id number] [phone] () Date:9506-20-72LPTU CLAIMS [address] [address]AU: 03/05/2018 Secondary NOT GIVENUNK [place] Insurance:SELF PAY [facility] Number: Effective Repository Date:2018-03-05 03/05/2018 XANDER Hernandez Primary XANDER Hernandez [place] [id number] E Insurance:MYCARE CRSC MILLERDOB: Community [place] [address] [facility] [id number], [place] Number: Repository [address]Cvo: 330 [id number] [phone] () Date:4490-83-61ORIV CLAIMS [address] [address]PA: 03/05/2018 Secondary NOT GIVENUNK [place] Insurance:SELF PAY [facility] Number: Effective Repository Date:2018-03-05 03/05/2018 XANDER Hernandez Primary XANDER Hernandez Fro[place] [id number] E Insurance:MYCARE CRSC MILLERDOB: Community [address] [facility] [id number], [place] Number: Repository [address]Bxy: 330 [id number] [phone]) Date:7482-25-74BUBH CLAIMS [address] [address]UL: 03/05/2018 Secondary NOT GIVENUNK [place] Insurance:SELF PAY [facility] Number: Effective Repository Date:2018-03-05 03/05/2018 XANDER Hernandez Primary XANDER Hernandez [place] [id number] E Insurance:MYCARE CRSC MILLERDOB: Community [address] [place] [facility] [id number], [place] Number: Repository [address]Feo: 330 [id number] [phone] (HP) Date:6013-39-42EDVV CLAIMS [address] [address]MN: 03/05/2018 Secondary NOT GIVENUNK [place] Insurance:SELF PAY [facility] Number: Effective Repository Date:2018-03-05 02/24/2018 XANDER Hernandez Primary XANDER Hernandez [place] [id number] E Insurance:MYCARE CRSC MILLERDOB: Community [address] [address] [facility] [id number], [place] Number: Repository [address]Pas: (330 [id number] [phone] (HP) Date:1695-26-40RTRZ CLAIMS [address] [address]JI: 02/24/2018 Secondary NOT GIVENUNK [place] Insurance:SELF PAY [facility] Number: Effective Repository Date:2018-02-24 02/17/2018 XANDER Hernandez Primary XANDER Hernandez [place] [id number] E Insurance:MYCARE CRSC MILLERDOB: Community [address] [address] [facility] [id number], [place] Number: Repository [address]Lcf: 330 [id number] [phone] (HP) Date:6541-69-99OPFV CLAIMS DEPTPO [address] [place] [address]DV: 02/17/2018 Secondary NOT GIVENUNK [place] Insurance:SELF PAY [facility]: Effective Repository Date:2018-02-16 02/07/2018 XANDER Hernandez Primary XANDER Hernandez [place] [id number] E Insurance:MYCARE CRSC MILLERDOB: Community [address] [address] [facility] [id number], [place] Number: Repository [address]Nps: 330 [id number] [phone] (HP) Date:4844-67-90VSMT CLAIMS [address] [address]WK: 02/07/2018 Secondary NOT GIVENUNK [place] Insurance:SELF PAY [facility] Number: Effective Repository Date:2018-02-07 02/01/2018 Xander Hernandez Primary Xander Hernandez Fro[place] [id number] E Insurance:MYCARE CRSC MillerDOB: Community [address] [address] [address], [place] Number: Repository [address]Tzs: 330 [id number] [phone] () Date:7246-81-54WJJT CLAIMS [address] [address]QE: 02/01/2018 Secondary NOT GIVENUNK [place] Insurance:SELF PAY [facility] Number: Effective Repository Date:2018-02-01 01/30/2018 Xander Hernandez Primary Xander Hernandez [place] [id number] E Insurance:MYCARE CRSC MillerDOB: Community [address] [facility] [id number], [place] Number: Repository [address]Hwe: 330 [id number] [phone] (HP) Date:5863-52-81BJHZ CLAIMS [address] [address]UI: 01/30/2018 Secondary NOT GIVENUNK [place] Insurance:SELF PAY [facility] Number: Effective Repository Date:2018-01-30 12/22/2017 Xander Hernandez Primary Xander Hernandez [place] [id number] E Insurance:MYCARE CRSC MillerDOB: Community [address] [address] [facility] [id number], [place] Number: Repository [address]Nkc: 330 [id number] [phone] () Date:6519-74-97QPLL CLAIMS [address] [address]KF: 12/22/2017 Secondary NOT GIVENUNK [place] Insurance:SELF PAY [facility] Number: Effective Repository Date:2017-12-22 12/20/2017 Xander Hernandez Primary Xander Hernandez [place] [id number] E Insurance:MYCARE CRSC MillerDOB: Community [place] [address] [facility] [id number], [place] Number: Repository [address]Cxk: 330 [id number] [phone] () Date:5765-74-61QMNF CLAIMS [address] [address]HQ: 12/20/2017 Secondary NOT GIVENUNK [place] Insurance:SELF PAY [facility] Number: Effective Repository Date:2017-12-20 12/20/2017 Xander Hernandez Primary Xander Hernandez [place] [id number] E Insurance:MYCARE CRSC MillerDOB: Community [place] [address] [address] Number: Repository [address]Bel: 330 [id number] [phone] () Date:7500-07-56KEAK CLAIMS [address] [address]GQ: 12/20/2017 Secondary NOT GIVENUNK [place] Insurance:SELF PAY [facility] Number: Effective Repository Date:2017-12-20 12/04/2017 Xander Hernandez Primary Xander Hernandez [place] [id number] E Insurance:MYCARE CRSC MillerDOB: Community [place] [address] [facility] [id number] Number: Repository [address]Rgv: [id number] [phone] Date:3625-74-29FFYX -9 (HP) CLAIMS [address] [address]ZF: 12/04/2017 Secondary NOT GIVENUNK [place] Insurance:SELF PAY [facility] Number: Effective Repository Date:2017-12-04 12/02/2017 Xander Hernandez Primary Xander Hernandez [place] [id number] [address] Insurance:MYCARE CRSC MillerDOB: Community [address] [address] [facility] [id number] Number: Repository [address]Lhv: [id number] [phone] Date:0501-06-06RPJR -9 (HP) CLAIMS [address] [address]FE: 12/02/2017 Secondary NOT GIVENUNK [place] Insurance:SELF PAY [facility] Number: Effective Repository Date:2017-12-02 11/07/2017 Xander Hernandez Primary Xander Hernandez [place] [id number] E Insurance:MYCARE CRSC MillerDOB: Community [place] [address] [facility] [id number] Number: Repository [address]Wgv: [id number] [phone] Date:7761-83-22UCQE -9 (HP) [address] [address]NW: 11/07/2017 Secondary NOT GIVENUNK [place] Insurance:SELF PAY [facility] Number: Effective Repository Date:2017-11-07 11/07/2017 Xander Hernandez Primary Xander Hernandez [place] [id number] E Insurance:MYCARE CRSC MillerDOB: Community [place] [address] [facility] [id number] Number: Repository [address]Jwu: [id number] [phone] Date:5165-71-05QLIL -9 (HP) CLAIMS [address] [address]UL: 11/07/2017 Secondary NOT GIVENUNK [place] Insurance:SELF PAY [facility]: Effective Repository Date:2017-11-07 11/07/2017 Xander Hernandez Primary Xander Hernandez [place] [id number] [address] Insurance:MYCARE CRSC MillerDOB: Community [place] [address] [facility] [id number] Number: Repository [address]Ese: [id number] [phone] Date:6142-71-74OPPZ -9 (HP) [address]S [address] [address]QX: 11/07/2017 Secondary NOT GIVENUNK [place] Insurance:SELF PAY [facility] Number: Effective Repository Date:2017-11-07 11/03/2017 Xander Hernandez Primary Xander Hernandez [place] [id number] E Insurance:MYCARE CRSC MillerDOB: Community [place] [address] [facility] [id number] Number: Repository [address]Iuv: [id number] [phone] Date:4102-77-65WEPL -9 (HP) CLAIMS [address] [address]HS: 11/03/2017 Secondary NOT GIVENUNK [place] Insurance:SELF PAY [facility] Number: Effective Repository Date:2017-11-03 09/05/2017 Xander Hernandez Primary Xander Hernandez [place] [id number] E Insurance:MYCARE CRSC MillerDOB: Community [place] [address] [facility] [id number] Number: Repository [address]Bmm: [id number] [phone] Date:5298-45-07SPNU -9 (HP) CLAIMS [address] [address]ZZ: 09/05/2017 Secondary NOT GIVENUNK [place] Insurance:SELF PAY [facility] Number: Effective Repository Date:2017-09-05 09/05/2017 Xander Hernandez Primary [place] [id number] E Insurance:MYCARE CRSC MillerDOB: Community [place] [address] [facility] [id number] Number: Repository [address]Uuv: [id number] [phone] Date:2757-60-50TNZP -9 (HP) [address]S [address] [address]MD: 09/05/2017 Secondary NOT GIVENUNK [place] Insurance:SELF PAY [facility] Number: Effective Repository Date:2017-09-05 09/04/2017 Xander Hernandez Primary Xander G Fro[place] [id number] E Insurance:MYCARE CRSC MillerDOB: Community [place] [address] [facility] [id number] Number: Repository [address]Bkk: [id number] [phone] Date:6376-77-52YBGJ -9 (HP) [address]S [address] [address]YR: 09/04/2017 Secondary NOT GIVENUNK [place] Insurance:SELF PAY [facility] Number: Effective Repository Date:2017-09-04 08/22/2017 Xander Hernandez Primary Xander Hernandez [place] [id number] E Insurance:MYCARE CRSC MillerDOB: Community [place] [address] [facility] [id number] Number: Repository [address]Ikm: [id number] [phone] Date:4801-13-32WGFK -9 (HP) [address] [address]ET: 08/22/2017 Secondary NOT GIVENUNK [place] Insurance:SELF PAY [facility] Number: Effective Repository Date:2017-08-22
== END ==
PROVIDERS: Family Provider Family Medicine Geriatric Medicine; PCP Family Medicine Geriatric Medicine; Referring Provider Family Medicine Geriatric Medicine; Visit Provider Family Medicine Geriatric Medicine
DX: F13.20 Sedative, hypnotic or anxiolytic dependence, uncomplicated (principal); R53.83 Other fatigue
CPT/HCPCS: 36415; 80053; 80184; 80185; 84443; 85025

== ENCOUNTER 2018-06-13 17:45 | Inpatient (IN) | payer MEDICARE, SELFPAY ==
[2018-06-13] VITALS (11 sets, daily range): BP systolic 105–150; BP diastolic 60–125; PULSE 74–109; RESP 18–28; TEMP 36.9–38.7; O2SAT 93–98; BMI 26.5; BMI 26.2; BMI 26.3
--- NOTE | 2018-06-13 17:54 | ED.RN ---
PT ASKED IF SHE IS HAVING THOUGHTS OF HARMING HERSELF OR OTHERS, PT RESPONDS SAYING YES AND SHE HAS A PLAN OF USING A [employer]TE[employer]CE [employer]CH[employer]IC AND STATES I KNOW HOW TO USE IT
--- NOTE | 2018-06-13 17:55 | EKG12_ITS ---
Test Reason : SOB Blood Pressure : / mmHG Vent. Rate : 107 BPM Atrial Rate : 107 BPM P-R Int : 140 ms QRS Dur : 084 ms QT Int : 322 ms P-R-T Axes : 085 079 050 degrees QTc Int : 429 ms Sinus tachycardia Confirmed by JAMES LEACH, LUZ ([id number]), editor trade journal GOPI RAMIREZ ([id number] on 06/16/2018 3:13:53 PM Referred By: TL Confirmed By:LUZ RAMIREZ MD
--- NOTE | 2018-06-13 18:01 | ED.VISSUMM ---
- ER Visit Summary Date of Service: 06/13/18 Chief Complaint: Dyspnea History of Present Illness: The patient is a 67 F brought in by EMS from home worsening dyspnea for the past 4 days. Productive sputum, subjective fever, chills, sweats. No chest pains. History of COPD on chronic 2 L of oxygen. Reports wheezing. Status post 2 rounds aerosols by EMS with improvement of wheezing. No vomiting or diarrhea. No urinary symptoms. Reported by nursing, patient was suicidal ideations over the past 2 weeks. Patient history of anxiety and depression, reports that her parents and spouse are not alive. Her only child is 41. She reports there is no need to be around. She has been seen by [facility] and has a safety contract with him the past 2 weeks. 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 During my questioning, she denies these symptoms. Physical Examination: General: Alert and oriented ?3, Speaking in almost full sentences HEENT: Normocephalic, atraumatic. Moist mucosa membranes Neck: supple, nontender. Cardiovascular: Regular tachycardic rate and rhythm, no murmurs Respiratory: Normal breath sounds, symmetric, no distress Abdomen: Soft, nontender, nondistended Extremities: Nontender, minimum edema, pulses intact ?4 Neuro: no focal neurological deficits. Psych: Cooperative, denies SI on my exam. Test Results: White count 5.8 hemoglobin 13.2. Potassium 3.3. Creatinine 0.66 INR 1.1. Influenza negative. Lactic acid 2.1. Blood cultures x2 pending. Urine pending. Alcohol negative. Tox screen pending. Chest x-ray 2 views negative. Emergency Department Course and Treatment: Patient with temp of 101.7, tachycardic, mild tachypnea take triage. Patient O2 was 87% on my initial evaluation. She stable on 3 L of oxygen 93%. Sepsis workup initiated. Due to reported comments to nursing on arrival with SI, suicide precautions will be placed. Currently no wheezing on exam. Reported wheezing prior to arrival we will give Solu-Medrol for COPD concerns. Will start antibiotics for concerns for clinical pneumonia. Results labs potassium 3.3, orally placed. She is on potassium supplements at home, however no diuretics are seen her medications. Influenza negative. Chest x-ray negative. Blood and urine cultures pending. Sputum culture pending. Fever of 101.7 productive sputum, concern for clinical pneumonia. O2 currently stable on 3 L. Lactic acid returned at 2.1, she is given fluid replacement according to the sepsis criteria. Blood pressure is stable. With suicidal ideations, alcohol negative tox screen pending. Discussed with hospitalist for admission for her hypoxemia. Treatment Plan: [] Disposition: Admission Impression: 1. Severe sepsis 2. Clinical pneumonia 3. History of COPD 4. Hypokalemia 5. Suicidal ideation This note was generated with [employer] software. It may contain incorrect words, spelling, and punctuation that were not noted in review of the chart prior to signing ED Disposition - Plan for ED Patient: Disposition: Acute Care Hospital [facility] Chief Complaint: Shortness of Breath Diagnosis: Severe sepsis, clincal pneumonia, COPD (chronic obstructive pulmonary disease), Hypoxemia, Suicidal ideation Referrals: Patel Veliz Chi, MD [Primary Care Provider] -
--- NOTE | 2018-06-13 18:05 | ED.DCSUM_ITS ---
- ER Visit Summary Date of Service: 06/13/18 Chief Complaint: Dyspnea History of Present Illness: The patient is a 67 F brought in by EMS from home worsening dyspnea for the past 4 days. Productive sputum, subjective fever, chills, sweats. No chest pains. History of COPD on chronic 2 L of oxygen. Reports wheezing. Status post 2 rounds aerosols by EMS with improvement of wheezing. No vomiting or diarrhea. No urinary symptoms. Reported by nursing, patient was suicidal ideations over the past 2 weeks. Patient history of anxiety and depression, reports that her parents and spouse are not alive. Her only child is 41. She reports there is no need to be around. She has been seen by [facility] and has a safety contract with him the past 2 weeks. 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 During my questioning, she denies these symptoms. Physical Examination: General: Alert and oriented ?3, Speaking in almost full sentences HEENT: Normocephalic, atraumatic. Moist mucosa membranes Neck: supple, nontender. Cardiovascular: Regular tachycardic rate and rhythm, no murmurs Respiratory: Normal breath sounds, symmetric, no distress Abdomen: Soft, nontender, nondistended Extremities: Nontender, minimum edema, pulses intact ?4 Neuro: no focal neurological deficits. Psych: Cooperative, denies SI on my exam. Test Results: White count 5.8 hemoglobin 13.2. Potassium 3.3. Creatinine 0.66 INR 1.1. Influenza negative. Lactic acid 2.1. Blood cultures x2 pending. Urine pending. Alcohol negative. Tox screen pending. Chest x-ray 2 views negative. Emergency Department Course and Treatment: Patient with temp of 101.7, tachycardic, mild tachypnea take triage. Patient O2 was 87% on my initial evaluation. She stable on 3 L of oxygen 93%. Sepsis workup initiated. Due to reported comments to nursing on arrival with SI, suicide precautions will be placed. Currently no wheezing on exam. Reported wheezing prior to arrival we will give Solu-Medrol for COPD concerns. Will start antibiotics for concerns for clinical pneumonia. Results labs potassium 3.3, orally placed. She is on potassium supplements at home, however no diuretics are seen her medications. Influenza negative. Chest x-ray negative. Blood and urine cultures pending. Sputum culture pending. Fever of 101.7 productive sputum, concern for clinical pneumonia. O2 currently stable on 3 L. Lactic acid returned at 2.1, she is given fluid replacement according to the sepsis criteria. Blood pressure is stable. With suicidal ideations, alcohol negative tox screen pending. Discussed with hospitalist for admission for her hypoxemia. Treatment Plan: [] Disposition: Admission Impression: 1. Severe sepsis 2. Clinical pneumonia 3. History of COPD 4. Hypokalemia 5. Suicidal ideation This note was generated with [employer] software. It may contain incorrect words, spelling, and punctuation that were not noted in review of the chart prior to signing ED Disposition - Plan for ED Patient: Disposition: Acute Care Hospital [facility] Chief Complaint: Shortness of Breath Diagnosis: Severe sepsis, clincal pneumonia, COPD (chronic obstructive pulmonary disease), Hypoxemia, Suicidal ideation Referrals: Patel Veliz Chi, MD [Primary Care Provider] -
[2018-06-13] MEDS: Acetaminophen 500 MG Tablet 1000 MG PO (18:17)
[2018-06-13] MEDS: MethylPREDNISolone 125 MG/2 ML Vial IV (18:17)
[2018-06-13] MEDS: 0.9% Normal Saline 1,000 ML 150 ML IV (18:17)
[2018-06-13 18:29] LABS: Absolute Lymphocyte Count 1.01 X10^3/ul (0.83-4.51); Absolute Neutrophil Count 4.2 X10^3/uL (2.0-7.7); Basophil# 0.03 X10^3/uL; Basophil% 0.5 % (0-1); Eosinophil# 0.18 X10^3/uL; Eosinophils% 3.1 % (0-5); Hematocrit 41.8 % (37-47); Hemoglobin 13.2 g/dl (12.0-15.0); Lymphocyte # 1.01 X10^3/ul (4.0); Lymphocyte % 17.4 % (19-41); Mean Corp Hgb Conc 31.6 g/gl (32-36); Mean Corpuscular Hgb 30.6 pg (27.0-32.0); Monocyte# 0.42 X10^3/uL; Monocyte% 7.2 % (0-10); Neutrophil # 4.16 X10^3/uL (2.7-7.7); Neutrophil % 71.6 % (47-70); Platelet Count 186 K/mm3 (150-450); RBC Distribution Width CV 14.6 % (11.6-14.6); Red Blood Count 4.31 M/mm3 (4.2-5.4); White Blood Count 5.8 K/mm3 (4.4-11.0)
[2018-06-13 18:30] LABS: International Normalized Ratio 1.1; POSITIVE COUNT NO; POSITIVE DIFFERENTIAL NO; POSITIVE MORPHOLOGY NO; Prothrombin Time (Protime)PT. 13.8 SECONDS (11.7-14.9)
[2018-06-13 18:44] LABS: AST(SGOT) 14 U/L (15-37); Alanine Aminotransfer ALT/SGPT 18 U/L (13-56); Albumin, Serum 3.5 g/dL (3.2-5.0); Alkaline Phosphatase 89 U/L (45-117); Anion Gap 8 (5-15); BUN 6 mg/dL (7-18); Calcium,Total 7.9 mg/dL (8.5-10.1); Chloride 108 mmol/L (98-107); Creatinine, Serum 0.66 mg/dL (0.55-1.02); EST Glomerular Filtration Rate 94 mL/min (>60); Est Glom Filt Rate - Afr Amer 114 mL/min (>60); Estimated Creatinine Clearance 48.45 ml/min; Globulin 3.6 g/dL (2.2-4.2); Glucose 95 mg/dL (74-106); Potassium 3.3 mmol/L (3.5-5.1); Protein, Total 7.1 g/dL (6.4-8.2); Sodium Level 143 mmol/L (136-145)
--- NOTE | 2018-06-13 19:06 | RAD_ITS ---
STUDY: X-RAY CHEST REASON FOR EXAM: Female, 67 years old. Cough TECHNIQUE: Frontal view of the chest COMPARISON: 05/19/2018 FINDINGS: The lungs are hyperinflated, but clear. There are no pleural effusions. There is no pneumothorax. The heart is normal in size. The visualized osseous structures are within normal limits. RAD/Chest 1 View (Portable) IMPRESSION: No acute thoracic pathology. Electronically Signed: Alfredo Mills, at 19:19 EST Tel , Service support ,
[2018-06-13] MEDS: Ceftriaxone 1 GM/50 ML BAG IV (19:14)
[2018-06-13 19:15] LABS: Bacteria 0 SEEN /hpf (None Seen); Mucous, Urine 0 SEEN /hpf (<or=2+); Red Blood Cells-Urine 0 SEEN /hpf (0-5); White Blood Cells 0 SEEN /hpf (0-5)
[2018-06-13 19:41] LABS: Color, Urine Yellow (Yellow); Glucose, Dipstick Normal (Normal); Ketone-Dipstick Negative (Negative); Leukocyte Esterase-Dipstick 25 /ul (Negative); Nitrite-Dipstick Negative (Negative); Occult Blood-Urine 10 /ul (Negative); Protein-Dipstick Negative (Negative); Urine Clarity Clear (Clear); Urine Urobilinogen Normal (Normal); Urine pH 6.5 (5.0 - 8.0)
--- NOTE | 2018-06-13 19:41 | HP.PCM_ITS ---
Problem List (1) COPD with exacerbation Status: Acute (2) Severe sepsis Status: Acute (3) Community acquired pneumonia Status: Acute History of Present Illness Date of Admission: 06/13/18 Chief Complaint: Shortness of breath The patient is a 67 year old F with a significant history of degenerative degenerative disc disease; COPD; sleep apnea; depression; anxiety; hypertension who presented with 4-day history of progressively worsening shortness of breath that occurs at rest and increases with exertion. Associated with her symptoms is fever of 99-100F while at home. Also she reports chills and wheezing. At home she uses 2 L of nasal cannula at night. She reported that she uses the nighttime home oxygen for sleep apnea. However the last couple of days she in creased her nasal cannula to 4 L of nasal cannula [id number]. She reports a productive cough of clear thick sputum. At emergency department her oxygen saturation was found to be 87% on 3 L. Reportedly within the last 1-2 weeks patient signed a contract with crisis for suicidal ideation. At the ED she reported to me that every now and then she has episodic suicidal ideation. She reported that her suicidal ideation peaked in March 2018 when her . 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 She denies any active plan to hurt herself. At emergency department patient was found to have tachycardia; tachypnea temperature of 101.7. Lactic acid was 2.1. Calcium was 7.9 and her potassium was 3.3. At emergency department patient received ceftriaxone, azithromycin and potassium supplementation. Suicidal watch with a one-to-one sitter was started at the emergency department and a consult with Case Management for Mental Health was made. While admitted and on the floor she continued to express suicidal ideation to her Sitter. Past Medical History Past Medical History (Chronic Problems): Chronic Problems (Last Reviewed 06/13/18 @ 22:00 by Yunior Heaton MD) Tobacco use (Chronic) Generalized weakness (Chronic) Debility (Chronic) Depression (Chronic) Insomnia (Chronic) She takes Temazepam every night for sleep, prescribed by Dr. Veliz Hypertension (Chronic) Physical debility (Chronic) Degenerative disc disease, lumbar (Chronic) Pain, chronic (Chronic) Seizure disorder (Chronic) Restless leg syndrome (Chronic) COPD (chronic obstructive pulmonary disease) (Chronic) 1 ppd now smoker 4 ppd Obstructive sleep apnea (Chronic) non-compliant with CPAP but has oxygen to wear at night Smokes with greater than 40 pack year history (Chronic) Medical History: Medical History (Last Reviewed 06/13/18 @ 22:00 by Yunior Heaton MD) Acidosis (Acute) E87.2 Generalized weakness (Chronic) R53.1 Debility (Chronic) R53.81 Acute and chronic respiratory failure with hypoxia (Acute) J96.21 Nicotine abuse (Acute) Z72.0 Acute respiratory failure with hypercapnia (Acute) J96.02 Acute respiratory failure with hypoxia and hypercapnia (Acute) J96.01, J96.02 Acute exacerbation of chronic obstructive airways disease (Acute) J44.1 Hypokalemia (Acute) E87.6 Subtherapeutic serum dilantin level (Acute) R78.89 Subtherapeutic phenobarb level (Acute) Depression (Chronic) F32.9 Insomnia (Chronic) G47.00 She takes Temazepam every night for sleep, prescribed by Dr. Veliz Hypertension (Chronic) I10 Fever (Acute) R50.9 Physical debility (Chronic) R53.81 Degenerative disc disease, lumbar (Chronic) M51.36 Pain, chronic (Chronic) G89.29 Seizure disorder (Chronic) G40.909 Restless leg syndrome (Chronic) COPD (chronic obstructive pulmonary disease) (Chronic) J44.9 1 ppd now smoker 4 ppd Obstructive sleep apnea (Chronic) G47.33 non-compliant with CPAP but has oxygen to wear at night Smokes with greater than 40 pack year history (Chronic) F17.210 Allergies Penicillins Allergy (Verified 03/19/18 20:21) Anaphylaxis codeine Adverse Reaction (Verified 03/19/18 20:21) Nausea Home Medications: Ambulatory Orders Medication Instructions Recorded Albuterol Aerosols [Ventolin 2.5 mg INHALATION Q6H PRN 05/12/16 Aerosols] Alendronate Sodium [Fosamax] 70 mg PO FR 05/12/16 Etodolac 400 mg PO BID 05/12/16 Fluticasone/Salmeterol [Advair 2 puff INHALATION BID 05/12/16 250/50 Mcg Diskus] Gabapentin [Neurontin] 300 mg PO 4X/DAY 05/12/16 Temazepam [Restoril] 30 mg PO QHS 06/24/17 Mirtazapine [Remeron] 15 mg PO QHS 07/03/17 Latanoprost 0.005% [Xalatan 1 drp EACH EYE QHS 07/04/17 Opthalmic] Methadone HCl 10 mg PO TID 09/04/17 Ergocalciferol [Vitamin D] 50,000 units PO MO 11/07/17 Phenobarbital 32.4 mg PO BID 11/07/17 Potassium Chloride [K-Dur] 10 meq PO DAILY 11/07/17 Pravastatin [Pravachol] 40 mg PO QHS 11/07/17 Acetaminophen [Tylenol Tablet] 650 mg PO Q6H PRN PRN tablet 03/07/18 Aspirin [Aspirin, Baby] 81 mg PO DAILY@0800 tab.chew 03/07/18 Metoprolol Tartrate 25 mg PO BID #60 tab 03/07/18 Ipratropium/Albuterol Sulfate 3 ml INHALATION BID 04/03/18 [Duoneb] Sennosides/Docusate Sodium 2 each PO BID 04/03/18 [Senna-Docusate Sodium Tablet] Clotrimazole 1 applic TOPICAL DAILY 06/13/18 Hydrocortisone 1% Crm 1 applic TOPICAL BID 06/13/18 Melatonin 10 mg PO QHS 06/13/18 Oxcarbazepine [Trileptal] 600 mg PO BID 06/13/18 Ranitidine HCl [Zantac] 300 mg PO DAILY 06/13/18 Risperidone 0.25 mg PO DAILY 06/13/18 Ropinirole HCl [Requip] 2 mg PO DAILY 06/13/18 Tolterodine Tartrate [Detrol LA] 4 mg PO DAILY 06/13/18 Surgical History: Surgical History (Last Reviewed 06/13/18 @ 22:00 by Yunior Heaton MD) History of right hip replacement (Acute) Z96.641 Broken ankle (Acute) S82.899A S/P laparoscopic cholecystectomy (Acute) Z90.49 S/P appendectomy (Acute) Z90.49 Surgical History: appendectomy, cholecystectomy, - - Fractured right ankle, carpal tunnel surgery, removal of teeth, right ovariectomy and fallopian tube removal. 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 Lives: Alone Smoking Status: Current every day smoker Alcohol: None - Denies - *Family History Maternal Family History: Family History (Last Reviewed 06/13/18 @ 22:00 by Yunior Heaton MD) Mother Diabetes Heart disease Hypertension CAD (coronary artery disease) CVA (cerebral vascular accident) History Items: Diabetes Paternal Family History: Family History (Last Reviewed 06/13/18 @ 22:00 by Yunior Heaton MD) Mother Diabetes Heart disease Hypertension CAD (coronary artery disease) CVA (cerebral vascular accident) History Items: Cancer - colon Sibling Family History: Family History (Last Reviewed 06/13/18 @ 22:00 by Yunior Heaton MD) Mother Diabetes Heart disease Hypertension CAD (coronary artery disease) CVA (cerebral vascular accident) History Items: No pertinent history Review of Systems Constitutional: Reports: Chills, Fever, Malaise. Denies: Weight Change HEENT: Denies: Head Aches, Sinus Congestion, Sinus Drainage Cardiovascular: Reports: Chest Pain. Denies: Palpitations Respiratory: Reports: Cough, Shortness of Breath. Denies: Shortness of breath at rest, Sputum production Gastrointestinal: Denies: Abdominal Pain, Nausea, Vomiting Genitourinary: Denies: Dysuria Musculoskeletal: Denies: Joint Pain, Joint Tenderness Skin: Denies: Rash, Wounds Neurological: Denies: Numbness, Tingling, Focal weakness Psychiatric: Denies: Anxiety, Depression, Homicidal Ideations, Suicidal Ideations Hematologic/ Lymphatic: Denies: Easy Bruising, Easy Bleeding VTE Information - Inpt Only VTE Present on Admission: No VTE Mechan Device Prophylaxis: None VTE Pharm Prophylaxis ordered?: Yes Patient Problems: Active and Suspected Problems (Last Reviewed 06/13/18 @ 22:00 by Yunior Heaton MD) Severe sepsis (Acute) Hypoxemia (Acute) Suicidal ideation (Acute) COPD with exacerbation (Acute) Severe sepsis (Acute) Community acquired pneumonia (Acute) - Physical Exam General: Alert, Oriented x3, Cooperative HEENT: Atraumatic, PERRLA, EOMI, Normocephalic Neck: Supple, No JVD, Negative Carotid Bruits Lungs: Wheezes Cardiovascular: No murmurs, Tachycardic Abdomen: Bowel Sounds Present, Soft, Non Tender Extremities: No edema, Capillary Refill Less than 3 Seconds Skin: No rashes, No breakdown Musculoskeletal: No Tenderness to Palpation of Joints or Extremities Neurological: Neuro grossly intact Psych/Mental Status: Anxious Vital Signs Temp Pulse Resp BP Pulse Ox 98.7 F 98 20 H 106/88 H 95 06/13/18 19:00 06/13/18 19:00 06/13/18 19:00 06/13/18 19:00 06/13/18 19:00 Oxygen Flow Rate (L/min) 3 Oxygen Delivery Method Nasal Cannula Weight: 72.3 kg Body Mass Index (BMI) 26.5 Microbiology Past 72 Hours 06/13/18 18:18 Influenza Types A,B Direct FA (JASWANT) - Final Mucosa - Nasopharyngeal Laboratory Tests Past 24 Hrs 06/13/18 06/13/18 06/13/18 18:12 18:12 18:12 WBC 5.8 RBC 4.31 Hgb 13.2 Hct 41.8 MCV 97.0 MCH 30.6 MCHC 31.6 L RDW 14.6 RDW Differential 52.0 H Plt Count 186 MPV 9.0 Immature Gran % (Auto) 0.200 Neut % (Auto) 71.6 H Lymph % (Auto) 17.4 L [place] % (Auto) 7.2 Eos % (Auto) 3.1 Baso % (Auto) 0.5 Absolute Neuts (auto) 4.2 Absolute Lymphs (auto) 1.01 Total Counted Not Reportable PT 13.8 INR 1.1 APTT 31.0 Sodium 143 Potassium 3.3 L Chloride 108 H Carbon Dioxide 27.0 Anion Gap 8 BUN 6 L Creatinine 0.66 Estim Creat Clear Calc 48.45 Est GFR (MDRD) Af Amer 114 Est GFR (MDRD) Non-Af 94 BUN/Creatinine Ratio 9.0 L Glucose 95 Lactic Acid Calcium 7.9 L Total Bilirubin 0.20 AST 14 L ALT 18 Alkaline Phosphatase 89 Troponin I Total Protein 7.1 Albumin 3.5 Globulin 3.6 Albumin/Globulin Ratio 1.0 Urine Color Urine Clarity Urine pH Ur Specific Luck Urine Protein Urine Glucose (UA) Urine Ketones Urine Occult Blood Urine Nitrite Urine Bilirubin Urine Urobilinogen Ur Leukocyte Esterase Urine RBC Urine WBC Ur Squamous Epith Cells Urine Bacteria Urine Mucus Ethyl Alcohol 06/13/18 06/13/18 06/13/18 18:12 18:12 18:26 WBC RBC Hgb Hct MCV MCH MCHC RDW RDW Differential Plt Count MPV Immature Gran % (Auto) Neut % (Auto) Lymph % (Auto) [place] % (Auto) Eos % (Auto) Baso % (Auto) Absolute Neuts (auto) Absolute Lymphs (auto) Total Counted PT INR APTT Sodium Potassium Chloride Carbon Dioxide Anion Gap BUN Creatinine Estim Creat Clear Calc Est GFR (MDRD) Af Amer Est GFR (MDRD) Non-Af BUN/Creatinine Ratio Glucose Lactic Acid Pending Calcium Total Bilirubin AST ALT Alkaline Phosphatase Troponin I Pending Total Protein Albumin Globulin Albumin/Globulin Ratio Urine Color Urine Clarity Urine pH Ur Specific Luck Urine Protein Urine Glucose (UA) Urine Ketones Urine Occult Blood Urine Nitrite Urine Bilirubin Urine Urobilinogen Ur Leukocyte Esterase Urine RBC Urine WBC Ur Squamous Epith Cells Urine Bacteria Urine Mucus Ethyl Alcohol 4.0 06/13/18 19:08 WBC RBC Hgb Hct MCV MCH MCHC RDW RDW Differential Plt Count MPV Immature Gran % (Auto) Neut % (Auto) Lymph % (Auto) [place] % (Auto) Eos % (Auto) Baso % (Auto) Absolute Neuts (auto) Absolute Lymphs (auto) Total Counted PT INR APTT Sodium Potassium Chloride Carbon Dioxide Anion Gap BUN Creatinine Estim Creat Clear Calc Est GFR (MDRD) Af Amer Est GFR (MDRD) Non-Af BUN/Creatinine Ratio Glucose Lactic Acid Calcium Total Bilirubin AST ALT Alkaline Phosphatase Troponin I Total Protein Albumin Globulin Albumin/Globulin Ratio Urine Color Pending Urine Clarity Pending Urine pH Pending Ur Specific Luck Pending Urine Protein Pending Urine Glucose (UA) Pending Urine Ketones Pending Urine Occult Blood Pending Urine Nitrite Pending Urine Bilirubin Pending Urine Urobilinogen Pending Ur Leukocyte Esterase Pending Urine RBC Pending Urine WBC Pending Ur Squamous Epith Cells Pending Urine Bacteria Pending Urine Mucus Pending Ethyl Alcohol Assessment/Plan All Active Problems (Last Reviewed 06/13/18 @ 22:00 by Yunior Heaton MD) UTI (urinary tract infection) (Acute) Severe sepsis (Acute) Hypoxemia (Acute) Suicidal ideation (Acute) COPD with exacerbation (Acute) Severe sepsis (Acute) Community acquired pneumonia (Acute) SIRS (systemic inflammatory response syndrome) (Acute) Viral illness (Acute) History of right hip replacement (Acute) Broken ankle (Acute) S/P laparoscopic cholecystectomy (Acute) S/P appendectomy (Acute) Acidosis (Acute) Acute and chronic respiratory failure with hypoxia (Acute) Nicotine abuse (Acute) Acute respiratory failure with hypercapnia (Acute) Acute respiratory failure with hypoxia and hypercapnia (Acute) Acute exacerbation of chronic obstructive airways disease (Acute) Hypokalemia (Acute) Subtherapeutic serum dilantin level (Acute) Subtherapeutic phenobarb level (Acute) Fever (Acute) Fracture of left great toe (Resolved) Frequent falls (Resolved) The patient is a 67 year old F with a significant history of degenerative degenerative disc disease; COPD; sleep apnea; depression; anxiety; hypertension who presented with 4-day history of progressively worsening shortness of breath; productive cough and found to meet SIRS criteria; also patient has suicidal ideation. Severe sepsis Chest x-ray was unremarkable. However with tachycardia; tachypnea; fever and productive cough it is probable that patient has severe sepsis due to pneumonia. There is no infiltrates on radiographic examination. This may be that the patient's is dehydrated Additional diagnoses include acute COPD exacerbation; viral illness. Lactic acid: 2.1 RR ~28 at admission Tachycardia highest 109 at admission Oxygen saturation: Reportedly 87% on 3 L Blood culture ?2 is pending Chest x-ray: Independently reviewed showed hyperinflation without any acute cardiopulmonary syndrome. Respiratory Gram stain and culture pending Antibiotics: Ceftriaxone and azithromycin was started at emergency department. Importantly on patient allergy is anaphylaxis to penicillin but she received ceftriaxone at emergency departments without any adverse effect. IV hydration with normal saline was started at emergency department. Because of hypokalemia; and hyperchloremia we will start patient on normal saline with 20 of potassium at 100 MLS per hour for 1 L. DuoNeb scheduled. Albuterol as needed Legionella antigen screen and Strep antigen ordered Rapid Influenza screen was negative. Will order comprehensive viral panel Mucinex ordered. Patient had chest pain which likely is pleuritic from her pneumonia/COPD will trend troponin and place patient on telemetry. COPD exacerbation DuoNeb and as needed albuterol as above. Home inhaled corticosteroid continued. Suicidal ideation Case management was consulted from the emergency department. '[facility]' to see patient when she is medically cleared. Hypokalemia On admission her potassium was 3.3. Repleted emergency department Because of concomitant hyperchloremia half-normal saline normal saline with 20 of potassium infusion was ordered. Trend BMP. Pseudo-hypocalcemia On her admission her calcium was 7.9 Her albumin was 3.5. Corrected calcium is 8.3; which is appropriate. Tobacco abuse Counseled Report that she is unable to tolerate nicotine patch Hypertension Although hypertension is listed on the medical profile. She denies any history of hypertension. Her blood pressure is not within goal at this time. Trend blood pressures Sleep apnea Patient reports using nasal cannula at 07/29 because of sleep apnea. oxygen per nasal cannula to maintain oxygen saturation above 90% ordered. DVT prophylaxis Subcutaneous Lovenox ordered. Code Visit Inpatient E&M: 73782 Init Hosp L3
--- NOTE | 2018-06-13 19:42 | ED.RN ---
LAB CALLED WITH CRITICAL LAB RESULTS. LACTIC ACID 2.1. DR. BASHIR MADE AWARE. NO NEW ORDERS AT THIS TIME
[2018-06-13 19:43] LABS: Lactic Acid 2.1 mmol/L (0.4-2.0)
[2018-06-13 19:43] LABS: Urine Bilirubin Dipstick 6 mg/dL (Negative)
[2018-06-13 19:48] LABS: Squamous Epithelial Cells - UA 10-25 SEEN /hpf (5-10)
--- NOTE | 2018-06-13 21:13 | NURSING ---
Kareem from ED called and keyon Juarez from counseling center called, they will not see patient until she is medically cleared. Please call crisis to eval once medically cleared.
--- NOTE | 2018-06-13 21:14 | ED.RN ---
TIFFANI FROM [facility] CALLED TO ASK ABOUT PT. NOTIFIED TIFFANI THAT PT WAS ADMITTED. TIFFANI STATES THEY ARE NOT ALLOWED TO SEE PT UNTIL THE PT IS MEDICALLY CLEARED. NOTIFIED PCU THAT THEY WILL NEED TO CALL [facility] WHEN PT IS MEDICALLY CLEARED.
[2018-06-13 22:19] LABS: Reflex Lactate? Y
[2018-06-13 22:26] LABS: Amphetamine Urine VISTA NEGATIVE (<1000 ng/mL); Barbiturate Urine VISTA POSITIVE (< 200 ng/mL); Benzodiazepine Urine VISTA NEGATIVE (< 200 ng/mL); Cocaine Urine VISTA NEGATIVE (< 300 ng/mL); Ecstacy Urine VISTA NEGATIVE (< 500 ng/mL); Methadone Urine VISTA POSITIVE (< 300 ng/mL); PCP Urine VISTA NEGATIVE (< 25 ng/mL); THC Urine VISTA NEGATIVE (< 50 ng/mL); Vista UDS pH Range 6
[2018-06-13] MEDS: Ipratropium/Albuterol Sulfate 3 ML AMPUL.NEB INHALATION (22:59)
[2018-06-13] MEDS: Budesonide Respules 0.5 MG/2 ML AMPUL.NEB. INHALATION (22:59)
[2018-06-13] MEDS: Tolterodine Tartrate 4 MG CAP.SA PO (23:26)
[2018-06-13] MEDS: Gabapentin 300 MG Capsule PO (23:26)
[2018-06-13] MEDS: Latanoprost 0.005% 1 Bottle 1 DRP EACH EYE (23:26)
[2018-06-13] MEDS: guaiFENesin 1,200 MG Tablet 1200 MG PO (23:26)
[2018-06-13] MEDS: Methadone 10 MG Tablet PO (23:26)
[2018-06-13] MEDS: Phenytoin Na 100 MG Capsule PO (23:47)
[2018-06-13] MEDS: Pramipexole Di-HCl 1 MG Tablet PO (23:48)
[2018-06-14] VITALS (15 sets, daily range): BP systolic 95–114; BP diastolic 45–54; PULSE 66–91; RESP 16–26; TEMP 36.8–37.4; O2SAT 95–97
[2018-06-14 00:17] LABS: Lactic Acid 1.6 mmol/L (0.4-2.0)
[2018-06-14 00:24] LABS: Phenytoin (Dilantin) Level 21.1 mL (10.0-20.0)
[2018-06-14] MEDS: Methadone 10 MG Tablet PO ×3 (05:34→21:20)
[2018-06-14 06:26] LABS: Absolute Lymphocyte Count 0.84 X10^3/ul (0.83-4.51); Absolute Neutrophil Count 3.2 X10^3/uL (2.0-7.7); Basophil# 0.02 X10^3/uL; Basophil% 0.4 % (0-1); Eosinophil# 0.01 X10^3/uL; Eosinophils% 0.2 % (0-5); Hematocrit 37.2 % (37-47); Hemoglobin 11.5 g/dl (12.0-15.0); Lymphocyte # 0.84 X10^3/ul (4.0); Lymphocyte % 18.3 % (19-41); Mean Corp Hgb Conc 30.9 g/gl (32-36); Mean Corpuscular Hgb 30.7 pg (27.0-32.0); Mean Corpuscular Volume 99.5 fL (81-99); Mean Platelet Vol. 9.6 fl (6.2-12.0); Monocyte# 0.51 X10^3/uL; Monocyte% 11.1 % (0-10); Neutrophil % 69.8 % (47-70); Platelet Count 180 K/mm3 (150-450); RBC Distribution Width CV 14.6 % (11.6-14.6); RBC Distribution Width SD 51.6 fl (35.1-43.9); Red Blood Count 3.74 M/mm3 (4.2-5.4); White Blood Count 4.6 K/mm3 (4.4-11.0)
[2018-06-14 06:27] LABS: POSITIVE COUNT NO; POSITIVE DIFFERENTIAL NO; POSITIVE MORPHOLOGY NO
[2018-06-14 06:31] LABS: Anion Gap 6 (5-15); BUN 6 mg/dL (7-18); BUN/Creat Ratio 12.3 RATIO (10-20); Calcium,Total 7.3 mg/dL (8.5-10.1); Chloride 114 mmol/L (98-107); Creatinine, Serum 0.49 mg/dL (0.55-1.02); EST Glomerular Filtration Rate 134 mL/min (>60); Est Glom Filt Rate - Afr Amer 162 mL/min (>60); Estimated Creatinine Clearance 48.45 ml/min; Glucose 116 mg/dL (74-106); Sodium Level 147 mmol/L (136-145)
[2018-06-14] MEDS: Budesonide Respules 0.5 MG/2 ML AMPUL.NEB. INHALATION ×2 (07:12→19:57)
[2018-06-14] MEDS: Ipratropium/Albuterol Sulfate 3 ML AMPUL.NEB INHALATION ×4 (07:12→19:57)
[2018-06-14] MEDS: Acetaminophen 325 MG Tablet 650 MG PO (09:18)
[2018-06-14] MEDS: Phenobarbital 32.4 MG Tablet PO ×2 (09:18→21:21)
[2018-06-14] MEDS: Etodolac 200 MG Capsule 400 MG PO ×2 (09:20→17:36)
[2018-06-14] MEDS: 0.9% Normal Saline 1,000 ML 100 ML IV ×2 (09:20→18:34)
[2018-06-14] MEDS: Senna/Docusate Sodium 1 Tablet PO ×2 (09:20→21:21)
[2018-06-14] MEDS: OXcarbazepine 600 MG Tablet PO ×2 (09:20→21:20)
[2018-06-14] MEDS: Famotidine 20 MG Tablet 40 MG PO (09:20)
[2018-06-14] MEDS: Gabapentin 300 MG Capsule PO ×4 (09:20→21:21)
[2018-06-14] MEDS: RisperiDONE 0.25 MG Tablet PO (09:20)
[2018-06-14] MEDS: Metoprolol Tartrate 25 MG Tablet PO ×2 (09:20→21:20)
[2018-06-14] MEDS: Tolterodine Tartrate 4 MG CAP.SA PO (09:20)
[2018-06-14] MEDS: Hydrocortisone 2.5% Crm 1 APPLIC TOPICAL (09:21)
[2018-06-14] MEDS: Enoxaparin 40 MG/0.4 ML Syringe SC (09:21)
[2018-06-14] MEDS: Aspirin 81 MG TAB.CHEW PO (09:21)
[2018-06-14] MEDS: guaiFENesin 1,200 MG Tablet 1200 MG PO ×2 (09:22→21:21)
--- NOTE | 2018-06-14 09:59 | PCM.PN.HOSP ---
Patient Problems: Active and Suspected Problems (Last Reviewed 06/13/18 @ 22:00 by Yunior Heaton MD) Severe sepsis (Acute) Hypoxemia (Acute) Suicidal ideation (Acute) COPD with exacerbation (Acute) Severe sepsis (Acute) Community acquired pneumonia (Acute) Subjective: Still feeling sick, needs O2 via NC which she is not on at home, still with cough Vitals/I&O's: Vital Signs Temp Pulse Resp BP Pulse Ox 99.3 F H 76 18 101/45 L 97 06/14/18 09:20 06/14/18 09:20 06/14/18 09:20 06/14/18 09:20 06/14/18 09:20 Oxygen Flow Rate (L/min) 3 Oxygen Delivery Method Nasal Cannula Weight: 157 lb 12.8 oz Body Mass Index (BMI) 26.2 Intake and Output for Last 24 Hours 06/12/18 06/13/18 06/14/18 23:59 23:59 23:59 Intake Total 98 / 98 661 / 661 Output Total 175 / 175 500 / 500 Balance -77 / -77 161 / 161 General: Alert, Oriented x3, Cooperative HEENT: Atraumatic, EOMI, Normocephalic Neck: Supple, No JVD Lungs: Normal air movement, No rhonchi, No rales, Wheezes Cardiovascular: Regular rate, Regular Rhythm, Normal S1, Normal S2, No murmurs Abdomen: Soft, Non Tender, Non-Distended, No Hepato-splenomegaly Extremities: No edema, Capillary Refill Less than 3 Seconds Skin: No rashes, No breakdown Neurological: Neuro grossly intact, Sensory exam intact to light touch and pain Psych/Mental Status: Flat Affect, Depressed Microbiology Past 72 Hours 06/13/18 19:08 Urine, Clean Catch Urine Culture - Preliminary Culture exhibits no growth. 06/13/18 23:10 Mucosa - Nose Respiratory Panel (PCR) - Final RSV B 06/13/18 19:08 Urine, Clean Catch Streptococcus pneumoniae Antigen (M - Final 06/13/18 19:08 Urine, Clean Catch Legionella Antigen - Final 06/13/18 18:18 Mucosa - Nasopharyngeal Influenza Types A,B Direct FA (JASWANT) - Final Laboratory Results 06/13/18 18:12: WBC 5.8, RBC 4.31, Hgb 13.2, Hct 41.8, MCV 97.0, MCH 30.6, MCHC 31.6 L, RDW 14.6, RDW Differential 52.0 H, Plt Count 186, MPV 9.0, Immature Gran % (Auto) 0.200, Neut % (Auto) 71.6 H, Lymph % (Auto) 17.4 L, [place] % (Auto) 7.2, Eos % (Auto) 3.1, Baso % (Auto) 0.5, Absolute Neuts (auto) 4.2, Absolute Lymphs (auto) 1.01, Total Counted Not Reportable 06/13/18 18:12: PT 13.8, INR 1.1, APTT 31.0 06/13/18 18:12: Sodium 143, Potassium 3.3 L, Chloride 108 H, Carbon Dioxide 27.0, Anion Gap 8, BUN 6 L, Creatinine 0.66, Estim Creat Clear Calc 48.45, Est GFR (MDRD) Af Amer 114, Est GFR (MDRD) Non-Af 94, BUN/Creatinine Ratio 9.0 L, Glucose 95, Calcium 7.9 L, Total Bilirubin 0.20, AST 14 L, ALT 18, Alkaline Phosphatase 89, Total Protein 7.1, Albumin 3.5, Globulin 3.6, Albumin/Globulin Ratio 1.0 06/13/18 18:12: Lactic Acid 2.1 H 06/13/18 18:12: Ethyl Alcohol 4.0 06/13/18 18:12: Phenytoin 21.1 H* 06/13/18 18:26: Troponin I < 0.015 06/13/18 19:08: Urine Color Yellow, Urine Clarity Clear, Urine pH 6.5, Ur Specific [place] 1.010, Urine Protein Negative, Urine Glucose (UA) Normal, Urine Ketones Negative, Urine Occult Blood 10 H, Urine Nitrite Negative, Urine Bilirubin 6 H, Urine Urobilinogen Normal, Ur Leukocyte Esterase 25 H, Urine RBC 0 SEEN, Urine WBC 0 SEEN, Ur Squamous Epith Cells 10-25 SEEN, Urine Bacteria 0 SEEN, Urine Mucus 0 SEEN 06/13/18 21:10: Troponin I < 0.015 06/13/18 21:11: Urine Opiates Screen NEGATIVE, Urine Methadone Screen POSITIVE H, Ur Barbiturates Screen POSITIVE H, Ur Phencyclidine Scrn NEGATIVE, Ur Amphetamines Screen NEGATIVE, U Methamphetamin-MDMA NEGATIVE, U Benzodiazepines Scrn NEGATIVE, Urine Cocaine Screen NEGATIVE, U Cannabinoids Screen NEGATIVE, Ur Drug Screen Comment 06/13/18 23:46: Troponin I < 0.015 06/13/18 23:46: Lactic Acid 1.6 06/14/18 05:40: WBC 4.6, RBC 3.74 L, Hgb 11.5 L, Hct 37.2, MCV 99.5 H, MCH 30.7, MCHC 30.9 L, RDW 14.6, RDW Differential 51.6 H, Plt Count 180, MPV 9.6, Immature Gran % (Auto) 0.200, Neut % (Auto) 69.8, Lymph % (Auto) 18.3 L, [place] % (Auto) 11.1 H, Eos % (Auto) 0.2, Baso % (Auto) 0.4, Absolute Neuts (auto) 3.2, Absolute Lymphs (auto) 0.84, Total Counted Not Reportable 06/14/18 05:40: Sodium 147 H, Potassium 5.0, Chloride 114 H, Carbon Dioxide 27.0, Anion Gap 6, BUN 6 L, Creatinine 0.49 L, Estim Creat Clear Calc 48.45, Est GFR (MDRD) Af Amer 162, Est GFR (MDRD) Non-Af 134, BUN/Creatinine Ratio 12.3, Glucose 116 H, Calcium 7.3 L Current Medications Acetaminophen (Tylenol) 650 mg PO Q4H PRN PRN PRN Reason: FEVER Last Admin: 06/14/18 09:18 Dose: 650 mg Albuterol Sulfate (Ventolin Aerosols) 2.5 mg INHALATION Q2H PRN PRN PRN Reason: SHORTNESS OF BREATH Albuterol/Ipratropium (Duoneb) 3 ml INHALATION Q4H.RT REPLACED BY [facility] Last Admin: 06/14/18 07:12 Dose: 3 ml Alendronate Sodium (Fosamax) 70 mg PO Fr@0600 REPLACED BY [facility] Aspirin (Aspirin, Baby) 81 mg PO DAILY@0800 REPLACED BY [facility] Last Admin: 06/14/18 09:21 Dose: 81 mg Bisacodyl (Dulcolax) 5 mg PO DAILY PRN PRN PRN Reason: Constipation Budesonide (Pulmicort Aerosol) 0.5 mg INHALATION Q12H.RT REPLACED BY [facility] Last Admin: 06/14/18 07:12 Dose: 0.5 mg Enoxaparin Sodium (Lovenox) 40 mg SC DAILY@1000 REPLACED BY [facility] Last Admin: 06/14/18 09:21 Dose: 40 mg Ergocalciferol (Vitamin D) 50,000 unit PO MO REPLACED BY [facility] Etodolac (Lodine) [facility] Last Admin: 06/14/18 09:20 Dose: 400 mg Famotidine (Pepcid) 40 mg PO DAILY REPLACED BY [facility] Last Admin: 06/14/18 09:20 Dose: 40 mg Gabapentin (Neurontin) 300 [facility] 4X[facility] Last Admin: 06/14/18 09:20 Dose: 300 mg Guaifenesin (Mucinex) 1,200 mg PO BID REPLACED BY [facility] Last Admin: 06/14/18 09:22 Dose: 1,200 mg Hydrocortisone (Hytone) 1 applic TOPICAL BID REPLACED BY [facility] Last Admin: 06/14/18 09:21 Dose: 1 applic Azithromycin 500 mg/ Dextrose 255 mls @ 250 mls/hr IV Q24@2200 REPLACED BY [facility] Stop: 06/16/18 23:02 Ceftriaxone Sodium (Rocephin) 1 gm in 50 mls @ 100 mls/hr IV Q24@2200 REPLACED BY [facility] Latanoprost (Xalatan Opthalmic) 1 drop EACH EYE QHS REPLACED BY [facility] Last Admin: 06/13/18 23:26 Dose: 1 drop Magnesium Hydroxide (Milk Of Magnesia) 30 ml PO DAILY PRN PRN PRN Reason: Constipation Melatonin (Melatonin) 10 mg PO QHS REPLACED BY [facility] Methadone HCl () 10 mg PO TID REPLACED BY [facility] Last Admin: 06/14/18 05:34 Dose: 10 mg Metoprolol Tartrate (Lopressor (Beta Maci)) 25 mg PO BID REPLACED BY [facility] Last Admin: 06/14/18 09:20 Dose: 25 mg Mirtazapine (Remeron) 15 mg PO QHS REPLACED BY [facility] Ondansetron HCl (Zofran) 4 mg IV Q8H PRN PRN PRN Reason: Nausea Oxcarbazepine (Trileptal) 600 mg PO BID REPLACED BY [facility] Last Admin: 06/14/18 09:20 Dose: 600 mg Phenobarbital (Phenobarbital) 32.4 mg PO BID REPLACED BY [facility] Last Admin: 06/14/18 09:18 Dose: 32.4 mg Potassium Chloride (K-Dur) 10 meq [facility] Last Admin: 06/14/18 09:22 Dose: Not Given Pramipexole Dihydrochloride (Mirapex) 1 mg PO DAILY@2200 REPLACED BY [facility] Last Admin: 06/13/18 23:48 Dose: 1 mg Pravastatin Sodium (Pravachol) 40 mg PO QHS REPLACED BY [facility] Risperidone (Risperdal) 0.25 mg PO DAILY REPLACED BY [facility] Last Admin: 06/14/18 09:20 Dose: 0.25 mg Senna/Docusate Sodium (Senokot-S, Clotilde-Colace) 1 tablet PO BID REPLACED BY [facility] Last Admin: 06/14/18 09:20 Dose: 1 tablet Sodium Chloride () 5 - 15 ml IV UD PRN PRN Reason: SALINE FLUSH Temazepam (Restoril) 30 mg PO QHS REPLACED BY [facility] Tolterodine Tartrate (Detrol La) 4 mg PO DAILY REPLACED BY [facility] Last Admin: 06/14/18 09:20 Dose: 4 mg Medical Necessity - Tobacco Use Smoking Status: Current every day smoker Assessment/Plan All Active Problems (Last Reviewed 06/13/18 @ 22:00 by Yunior Heaton MD) UTI (urinary tract infection) (Acute) Severe sepsis (Acute) Hypoxemia (Acute) Suicidal ideation (Acute) COPD with exacerbation (Acute) Severe sepsis (Acute) Community acquired pneumonia (Acute) SIRS (systemic inflammatory response syndrome) (Acute) Viral illness (Acute) History of right hip replacement (Acute) Broken ankle (Acute) S/P laparoscopic cholecystectomy (Acute) S/P appendectomy (Acute) Acidosis (Acute) Acute and chronic respiratory failure with hypoxia (Acute) Nicotine abuse (Acute) Acute respiratory failure with hypercapnia (Acute) Acute respiratory failure with hypoxia and hypercapnia (Acute) Acute exacerbation of chronic obstructive airways disease (Acute) Hypokalemia (Acute) Subtherapeutic serum dilantin level (Acute) Subtherapeutic phenobarb level (Acute) Fever (Acute) Fracture of left great toe (Resolved) Frequent falls (Resolved) 1. Sepsis secondary to possible pneumonia versus his respiratory virus/COPD exacerbation -Respiratory panel returns with RSVP positive, so far cultures are negative and chest x-ray was unremarkable for consolidation -We will continue with Rocephin and azithromycin at the moment and can discontinue if cultures come back negative -Continue with her duo nebs and inhaled corticosteroids, can also add IV Solu-Medrol. -Normal saline at 100 -Legionella and strep antigen were negative 2. Suicidal ideation/depression -She states today she has depression that comes and goes periodically. 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 -Continue with Remeron, risperidone, temazepam 3. Glaucoma -Stable -Continue with eyedrops 4. Seizure disorder/restless legs -Stable currently -Continue with Requip, phenobarbital, Dilantin, Trileptal -Phenytoin level was slightly elevated to 21.1, normal is 10-20. -We will back off of the dosing for the Dilantin and monitor levels 5. Hypertension/hyperlipidemia -Stable -Continue with metoprolol and pravastatin 6. GERD -Stable -Continue with Zantac 7. Osteoporosis -On a bisphosphonate -Can continue if she is here on the day of the week she takes DVT: Lovenox Code Visit Inpatient E&M: 02467 Subs Hosp L2
--- NOTE | 2018-06-14 10:11 | PN_ITS ---
Patient Problems: Active and Suspected Problems (Last Reviewed 06/13/18 @ 22:00 by Yunior Heaton MD) Severe sepsis (Acute) Hypoxemia (Acute) Suicidal ideation (Acute) COPD with exacerbation (Acute) Severe sepsis (Acute) Community acquired pneumonia (Acute) Subjective: Still feeling sick, needs O2 via NC which she is not on at home, still with cough Vitals/I&O's: Vital Signs Temp Pulse Resp BP Pulse Ox 99.3 F H 76 18 101/45 L 97 06/14/18 09:20 06/14/18 09:20 06/14/18 09:20 06/14/18 09:20 06/14/18 09:20 Oxygen Flow Rate (L/min) 3 Oxygen Delivery Method Nasal Cannula Weight: 157 lb 12.8 oz Body Mass Index (BMI) 26.2 Intake and Output for Last 24 Hours 06/12/18 06/13/18 06/14/18 23:59 23:59 23:59 Intake Total 98 / 98 661 / 661 Output Total 175 / 175 500 / 500 Balance -77 / -77 161 / 161 General: Alert, Oriented x3, Cooperative HEENT: Atraumatic, EOMI, Normocephalic Neck: Supple, No JVD Lungs: Normal air movement, No rhonchi, No rales, Wheezes Cardiovascular: Regular rate, Regular Rhythm, Normal S1, Normal S2, No murmurs Abdomen: Soft, Non Tender, Non-Distended, No Hepato-splenomegaly Extremities: No edema, Capillary Refill Less than 3 Seconds Skin: No rashes, No breakdown Neurological: Neuro grossly intact, Sensory exam intact to light touch and pain Psych/Mental Status: Flat Affect, Depressed Microbiology Past 72 Hours 06/13/18 19:08 Urine, Clean Catch Urine Culture - Preliminary Culture exhibits no growth. 06/13/18 23:10 Mucosa - Nose Respiratory Panel (PCR) - Final RSV B 06/13/18 19:08 Urine, Clean Catch Streptococcus pneumoniae Antigen (M - Final 06/13/18 19:08 Urine, Clean Catch Legionella Antigen - Final 06/13/18 18:18 Mucosa - Nasopharyngeal Influenza Types A,B Direct FA (JASWANT) - Final Laboratory Results 06/13/18 18:12: WBC 5.8, RBC 4.31, Hgb 13.2, Hct 41.8, MCV 97.0, MCH 30.6, MCHC 31.6 L, RDW 14.6, RDW Differential 52.0 H, Plt Count 186, MPV 9.0, Immature Gran % (Auto) 0.200, Neut % (Auto) 71.6 H, Lymph % (Auto) 17.4 L, [place] % (Auto) 7.2, Eos % (Auto) 3.1, Baso % (Auto) 0.5, Absolute Neuts (auto) 4.2, Absolute Lymphs (auto) 1.01, Total Counted Not Reportable 06/13/18 18:12: PT 13.8, INR 1.1, APTT 31.0 06/13/18 18:12: Sodium 143, Potassium 3.3 L, Chloride 108 H, Carbon Dioxide 27.0, Anion Gap 8, BUN 6 L, Creatinine 0.66, Estim Creat Clear Calc 48.45, Est GFR (MDRD) Af Amer 114, Est GFR (MDRD) Non-Af 94, BUN/Creatinine Ratio 9.0 L, Glucose 95, Calcium 7.9 L, Total Bilirubin 0.20, AST 14 L, ALT 18, Alkaline Phosphatase 89, Total Protein 7.1, Albumin 3.5, Globulin 3.6, Albumin/Globulin Ratio 1.0 06/13/18 18:12: Lactic Acid 2.1 H 06/13/18 18:12: Ethyl Alcohol 4.0 06/13/18 18:12: Phenytoin 21.1 H* 06/13/18 18:26: Troponin I < 0.015 06/13/18 19:08: Urine Color Yellow, Urine Clarity Clear, Urine pH 6.5, Ur Specific [place] 1.010, Urine Protein Negative, Urine Glucose (UA) Normal, Urine Ketones Negative, Urine Occult Blood 10 H, Urine Nitrite Negative, Urine Bilirubin 6 H, Urine Urobilinogen Normal, Ur Leukocyte Esterase 25 H, Urine RBC 0 SEEN, Urine WBC 0 SEEN, Ur Squamous Epith Cells 10-25 SEEN, Urine Bacteria 0 SEEN, Urine Mucus 0 SEEN 06/13/18 21:10: Troponin I < 0.015 06/13/18 21:11: Urine Opiates Screen NEGATIVE, Urine Methadone Screen POSITIVE H , Ur Barbiturates Screen POSITIVE H, Ur Phencyclidine Scrn NEGATIVE, Ur Amphetamines Screen NEGATIVE, U Methamphetamin-MDMA NEGATIVE, U Benzodiazepines Scrn NEGATIVE, Urine Cocaine Screen NEGATIVE, U Cannabinoids Screen NEGATIVE, Ur Drug Screen Comment 06/13/18 23:46: Troponin I < 0.015 06/13/18 23:46: Lactic Acid 1.6 06/14/18 05:40: WBC 4.6, RBC 3.74 L, Hgb 11.5 L, Hct 37.2, MCV 99.5 H, MCH 30.7, MCHC 30.9 L, RDW 14.6, RDW Differential 51.6 H, Plt Count 180, MPV 9.6, Immature Gran % (Auto) 0.200, Neut % (Auto) 69.8, Lymph % (Auto) 18.3 L, [place] % (Auto) 11.1 H, Eos % (Auto) 0.2, Baso % (Auto) 0.4, Absolute Neuts (auto) 3.2, Absolute Lymphs (auto) 0.84, Total Counted Not Reportable 06/14/18 05:40: Sodium 147 H, Potassium 5.0, Chloride 114 H, Carbon Dioxide 27.0, Anion Gap 6, BUN 6 L, Creatinine 0.49 L, Estim Creat Clear Calc 48.45, Est GFR (MDRD) Af Amer 162, Est GFR (MDRD) Non-Af 134, BUN/Creatinine Ratio 12.3, Glucose 116 H, Calcium 7.3 L Current Medications Acetaminophen (Tylenol) 650 mg PO Q4H PRN PRN PRN Reason: FEVER Last Admin: 06/14/18 09:18 Dose: 650 mg Albuterol Sulfate (Ventolin Aerosols) 2.5 mg INHALATION Q2H PRN PRN PRN Reason: SHORTNESS OF BREATH Albuterol/Ipratropium (Duoneb) 3 ml INHALATION Q4H.RT [facility] Last Admin: 06/14/18 07:12 Dose: 3 ml Alendronate Sodium (Fosamax) 70 mg PO Fr@0600 [facility] Aspirin (Aspirin, Baby) 81 mg PO DAILY@0800 [facility] Last Admin: 06/14/18 09:21 Dose: 81 mg Bisacodyl (Dulcolax) 5 mg PO DAILY PRN PRN PRN Reason: Constipation Budesonide (Pulmicort Aerosol) 0.5 mg INHALATION Q12H.RT [facility] Last Admin: 06/14/18 07:12 Dose: 0.5 mg Enoxaparin Sodium (Lovenox) 40 mg SC DAILY@1000 [facility] Last Admin: 06/14/18 09:21 Dose: 40 mg Ergocalciferol (Vitamin D) 50,000 unit PO MO [facility]od[facility] (Lodine) [facility] Last Admin: 06/14/18 09:20 Dose: 400 mg Famotidine (Pepcid) 40 mg PO DAILY [facility] Last Admin: 06/14/18 09:20 Dose: 40 mg Gabapentin (Neurontin) [facility] Last Admin: 06/14/18 09:20 Dose: 300 mg Guaifenesin (Mucinex) 1,200 mg PO BID [facility] Last Admin: 06/14/18 09:22 Dose: 1,200 mg Hydrocortisone (Hytone) 1 applic TOPICAL BID [facility] Last Admin: 06/14/18 09:21 Dose: 1 applic Azithromycin 500 mg/ Dextrose 255 mls @ 250 mls/hr IV Q24@2200 [facility] Stop: 06/16/18 23:02 Ceftriaxone Sodium (Rocephin) 1 gm in 50 mls @ 100 mls/hr IV Q24@2200 [facility] Latanoprost (Xalatan Opthalmic) 1 drop EACH EYE QHS [facility] Last Admin: 06/13/18 23:26 Dose: 1 drop Magnesium Hydroxide (Milk Of Magnesia) 30 ml PO DAILY PRN PRN PRN Reason: Constipation Melatonin (Melatonin) 10 mg PO QHS [facility] Methadone HCl () 10 mg PO TID [facility] Last Admin: 06/14/18 05:34 Dose: 10 mg Metoprolol Tartrate (Lopressor (Beta Maci)) 25 mg PO BID [facility] Last Admin: 06/14/18 09:20 Dose: 25 mg Mirtazapine (Remeron) 15 mg PO QHS [facility] Ondansetron HCl (Zofran) 4 mg IV Q8H PRN PRN PRN Reason: Nausea Oxcarbazepine (Trileptal) 600 mg PO BID [facility] Last Admin: 06/14/18 09:20 Dose: 600 mg Phenobarbital (Phenobarbital) 32.4 mg PO BID [facility] Last Admin: 06/14/18 09:18 Dose: 32.4 mg Potassium Chloride (K-Dur) [facility]q [facility] Last Admin: 06/14/18 09:22 Dose: Not Given Pramipexole Dihydrochloride (Mirapex) 1 mg PO DAILY@2200 [facility] Last Admin: 06/13/18 23:48 Dose: 1 mg Pravastatin Sodium (Pravachol) 40 mg PO QHS [facility] Risperidone (Risperdal) 0.25 mg PO DAILY [facility] Last Admin: 06/14/18 09:20 Dose: 0.25 mg Senna/Docusate Sodium (Senokot-S, Clotilde-Colace) 1 tablet PO BID [facility] Last Admin: 06/14/18 09:20 Dose: 1 tablet Sodium Chloride () 5 - 15 ml IV UD PRN PRN Reason: SALINE FLUSH Temazepam (Restoril) 30 mg PO QHS [facility] Tolterodine Tartrate (Detrol La) 4 mg PO DAILY [facility] Last Admin: 06/14/18 09:20 Dose: 4 mg Medical Necessity - Tobacco Use Smoking Status: Current every day smoker Assessment/Plan All Active Problems (Last Reviewed 06/13/18 @ 22:00 by Yunior Heaton MD) UTI (urinary tract infection) (Acute) Severe sepsis (Acute) Hypoxemia (Acute) Suicidal ideation (Acute) COPD with exacerbation (Acute) Severe sepsis (Acute) Community acquired pneumonia (Acute) SIRS (systemic inflammatory response syndrome) (Acute) Viral illness (Acute) History of right hip replacement (Acute) Broken ankle (Acute) S/P laparoscopic cholecystectomy (Acute) S/P appendectomy (Acute) Acidosis (Acute) Acute and chronic respiratory failure with hypoxia (Acute) Nicotine abuse (Acute) Acute respiratory failure with hypercapnia (Acute) Acute respiratory failure with hypoxia and hypercapnia (Acute) Acute exacerbation of chronic obstructive airways disease (Acute) Hypokalemia (Acute) Subtherapeutic serum dilantin level (Acute) Subtherapeutic phenobarb level (Acute) Fever (Acute) Fracture of left great toe (Resolved) Frequent falls (Resolved) 1. Sepsis secondary to possible pneumonia versus his respiratory virus/COPD exacerbation -Respiratory panel returns with RSVP positive, so far cultures are negative and chest x-ray was unremarkable for consolidation -We will continue with Rocephin and azithromycin at the moment and can discontinue if cultures come back negative -Continue with her duo nebs and inhaled corticosteroids, can also add IV Solu- Medrol. -Normal saline at 100 -Legionella and strep antigen were negative 2. Suicidal ideation/depression -She states today she has depression that comes and goes periodically. 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 -Continue with Remeron, risperidone, temazepam 3. Glaucoma -Stable -Continue with eyedrops 4. Seizure disorder/restless legs -Stable currently -Continue with Requip, phenobarbital, Dilantin, Trileptal -Phenytoin level was slightly elevated to 21.1, normal is 10-20. -We will back off of the dosing for the Dilantin and monitor levels 5. Hypertension/hyperlipidemia -Stable -Continue with metoprolol and pravastatin 6. GERD -Stable -Continue with Zantac 7. Osteoporosis -On a bisphosphonate -Can continue if she is here on the day of the week she takes DVT: Lovenox Code Visit Inpatient E&M: 98411 Subs Hosp L2
[2018-06-14] MEDS: Phenytoin Na 100 MG Capsule PO ×2 (11:55→17:36)
--- NOTE | 2018-06-14 15:07 | CASEMGMT ---
Addendum entered by Michela Rosas 06/14/18 15:10: Patient is active with [facility]. Tammy's contact number is [phone] Michela LEWIS Original Note: SW received a call from Tammy Simmons from [facility]. She is patient's Clinical Informatics Physician. Patient has [employer] M-F 3 hours a day, 5 meals from [employer], and 5 meals from [employer]. She also has a medical alert button. She said patient did have a Psych hospitalization in the fall of 2017. It was the anniversary of her 's . SW told her crisis will see her once she is medically cleared. Michela LEWIS
[2018-06-14] MEDS: Ceftriaxone 1 GM/50 ML BAG IV (17:37)
[2018-06-14] MEDS: Latanoprost 0.005% 1 Bottle 1 DRP EACH EYE (21:20)
[2018-06-14] MEDS: MELATONIN 10 MG TABLET PO (21:20)
[2018-06-14] MEDS: Temazepam 15 MG Capsule 30 MG PO (21:21)
[2018-06-14] MEDS: Mirtazapine 15 MG Tablet PO (21:21)
[2018-06-14] MEDS: Pramipexole Di-HCl 1 MG Tablet PO (21:21)
[2018-06-14] MEDS: Pravastatin 40 MG Tablet PO (21:21)
[2018-06-15] VITALS (24 sets, daily range): BP systolic 84–158; BP diastolic 38–103; PULSE 76–113; RESP 16–34; TEMP 36.2–37.2; O2SAT 93–99
[2018-06-15] MEDS: Acetaminophen 325 MG Tablet 650 MG PO (03:18)
[2018-06-15] MEDS: Methadone 10 MG Tablet PO ×2 (05:10→21:20)
[2018-06-15] MEDS: 0.9% Normal Saline 1,000 ML 100 ML IV ×2 (05:10→16:25)
[2018-06-15 07:03] LABS: Anion Gap 8 (5-15); BUN 6 mg/dL (7-18); BUN/Creat Ratio 13.9 RATIO (10-20); Calcium,Total 7.7 mg/dL (8.5-10.1); Chloride 109 mmol/L (98-107); Creatinine, Serum 0.43 mg/dL (0.55-1.02); EST Glomerular Filtration Rate 154 mL/min (>60); Est Glom Filt Rate - Afr Amer 187 mL/min (>60); Estimated Creatinine Clearance 48.45 ml/min; Glucose 134 mg/dL (74-106); Potassium 3.7 mmol/L (3.5-5.1); Sodium Level 141 mmol/L (136-145)
[2018-06-15] MEDS: Budesonide Respules 0.5 MG/2 ML AMPUL.NEB. INHALATION (07:32)
[2018-06-15] MEDS: Ipratropium/Albuterol Sulfate 3 ML AMPUL.NEB INHALATION ×4 (07:32→22:56)
[2018-06-15] MEDS: Etodolac 200 MG Capsule 400 MG PO ×2 (09:07→17:50)
[2018-06-15] MEDS: Gabapentin 300 MG Capsule PO ×4 (09:08→21:21)
[2018-06-15] MEDS: Phenytoin Na 100 MG Capsule PO ×2 (09:08→17:50)
[2018-06-15] MEDS: Aspirin 81 MG TAB.CHEW PO (09:08)
[2018-06-15] MEDS: guaiFENesin 1,200 MG Tablet 1200 MG PO ×2 (09:11→21:21)
[2018-06-15] MEDS: OXcarbazepine 600 MG Tablet PO ×2 (09:11→21:22)
[2018-06-15] MEDS: Famotidine 20 MG Tablet 40 MG PO (09:11)
[2018-06-15] MEDS: RisperiDONE 0.25 MG Tablet PO (09:11)
[2018-06-15] MEDS: Phenobarbital 32.4 MG Tablet PO ×2 (09:12→21:30)
[2018-06-15] MEDS: Tolterodine Tartrate 4 MG CAP.SA PO (09:12)
[2018-06-15] MEDS: Enoxaparin 40 MG/0.4 ML Syringe SC (09:12)
[2018-06-15] MEDS: Senna/Docusate Sodium 1 Tablet PO ×2 (09:20→21:22)
--- NOTE | 2018-06-15 09:39 | NURSING ---
Crisis center notified of need to evaluate patient, MD has medically cleared.
--- NOTE | 2018-06-15 09:45 | PCM.PN.HOSP ---
Patient Problems: Active and Suspected Problems (Last Reviewed 06/13/18 @ 22:00 by Yunior Heaton MD) Severe sepsis (Acute) Hypoxemia (Acute) Suicidal ideation (Acute) COPD with exacerbation (Acute) Severe sepsis (Acute) Community acquired pneumonia (Acute) Subjective: Sleeping, still feels short of breath nasal cannula, continuing with a cough Vitals/I&O's: Vital Signs Temp Pulse Resp BP Pulse Ox 97.6 F L 78 20 H 94/45 L 94 06/15/18 09:10 06/15/18 09:10 06/15/18 09:10 06/15/18 09:10 06/15/18 09:10 Oxygen Flow Rate (L/min) 4 Oxygen Delivery Method Nasal Cannula Weight: 157 lb 12.8 oz Body Mass Index (BMI) 26.2 Intake and Output for Last 24 Hours 06/13/18 06/14/18 06/15/18 23:59 23:59 23:59 Intake Total 98 / 98 3558 / 3558 700 / 700 Output Total 175 / 175 1650 / 1650 150 / 150 Balance -77 / -77 1908 / 1908 550 / 550 General: Alert, Oriented x3, Cooperative HEENT: Atraumatic, EOMI, Normocephalic Neck: Supple, No JVD Lungs: Normal air movement, No rhonchi, No rales, Wheezes, coarse Cardiovascular: Regular rate, Regular Rhythm, Normal S1, Normal S2, No murmurs Abdomen: Soft, Non Tender, Non-Distended, No Hepato-splenomegaly Extremities: No edema, Capillary Refill Less than 3 Seconds Skin: No rashes, No breakdown Neurological: Neuro grossly intact, Sensory exam intact to light touch and pain Psych/Mental Status: Flat Affect, Depressed Microbiology Past 72 Hours 06/13/18 19:08 Urine, Clean Catch Urine Culture - Final Mixed Gram Positive Organisms 06/13/18 23:10 Mucosa - Nose Respiratory Panel (PCR) - Final RSV B 06/13/18 19:08 Urine, Clean Catch Streptococcus pneumoniae Antigen (M - Final 06/13/18 19:08 Urine, Clean Catch Legionella Antigen - Final 06/13/18 18:18 Mucosa - Nasopharyngeal Influenza Types A,B Direct FA (JASWANT) - Final Laboratory Results 06/15/18 06:36: Sodium 141, Potassium 3.7, Chloride 109 H, Carbon Dioxide 24.0, Anion Gap 8, BUN 6 L, Creatinine 0.43 L, Estim Creat Clear Calc 48.45, Est GFR (MDRD) Af Amer 187, Est GFR (MDRD) Non-Af 154, BUN/Creatinine Ratio 13.9, Glucose 134 H, Calcium 7.7 L Current Medications Acetaminophen (Tylenol) 650 mg PO Q4H PRN PRN PRN Reason: FEVER Last Admin: 06/15/18 03:18 Dose: 650 mg Albuterol Sulfate (Ventolin Aerosols) 2.5 mg INHALATION Q2H PRN PRN PRN Reason: SHORTNESS OF BREATH Albuterol/Ipratropium (Duoneb) 3 ml INHALATION Q4H.RT [facility] [place] Last Admin: 06/15/18 07:32 Dose: 3 ml Alendronate Sodium (Fosamax) 70 mg PO Fr@0600 [facility] [place] Aspirin (Aspirin, Baby) 81 mg PO DAILY@0800 [facility] [place] Last Admin: 06/15/18 09:08 Dose: 81 mg Bisacodyl (Dulcolax) 5 mg PO DAILY PRN PRN PRN Reason: Constipation Budesonide (Pulmicort Aerosol) 0.5 mg INHALATION Q12H.RT [facility] [place] Last Admin: 06/15/18 07:32 Dose: 0.5 mg Enoxaparin Sodium (Lovenox) 40 mg SC DAILY@1000 [facility] [place] Last Admin: 06/15/18 09:12 Dose: 40 mg Ergocalciferol (Vitamin D) 50,000 unit PO MO CHEN Etodolac (Lodine) 400 mg PO BIDCM [facility] [place] Last Admin: 06/15/18 09:07 Dose: 400 mg Famotidine (Pepcid) 40 mg PO DAILY [facility] [place] Last Admin: 06/15/18 09:11 Dose: 40 mg Gabapentin (Neurontin) 300 mg PO 4X/DAYCM [facility] [place] Last Admin: 06/15/18 09:08 Dose: 300 mg Guaifenesin (Mucinex) 1,200 mg PO BID [facility] [place] Last Admin: 06/15/18 09:11 Dose: 1,200 mg Hydrocortisone (Hytone) 1 applic TOPICAL BID [facility] [place] Last Admin: 06/15/18 09:14 Dose: Not Given Sodium Chloride () 1,000 mls @ 100 mls/hr IV .Q10H [facility] [place] Last Admin: 06/15/18 05:10 Dose: 100 mls/hr Latanoprost (Xalatan Opthalmic) 1 drop EACH EYE QHS [facility] [place] Last Admin: 06/14/18 21:20 Dose: 1 drop Magnesium Hydroxide (Milk Of Magnesia) 30 ml PO DAILY PRN PRN PRN Reason: Constipation Melatonin (Melatonin) 10 mg PO QHS [facility] [place] Last Admin: 06/14/18 21:20 Dose: 10 mg Methadone HCl () 10 mg PO TID [facility] [place] Last Admin: 06/15/18 05:10 Dose: 10 mg Metoprolol Tartrate (Lopressor (Beta Maci)) 25 mg PO BID [facility] [place] Last Admin: 06/15/18 09:25 Dose: Not Given Mirtazapine (Remeron) 15 mg PO QHS [facility] [place] Last Admin: 06/14/18 21:21 Dose: 15 mg Ondansetron HCl (Zofran) 4 mg IV Q8H PRN PRN PRN Reason: Nausea Oxcarbazepine (Trileptal) 600 mg PO BID [facility] [place] Last Admin: 06/15/18 09:11 Dose: 600 mg Phenobarbital (Phenobarbital) 32.4 mg PO BID [facility] [place] Last Admin: 06/15/18 09:12 Dose: 32.4 mg Phenytoin Sodium (Dilantin) 100 mg PO TIDCM [facility] [place] Last Admin: 06/15/18 09:08 Dose: 100 mg Potassium [facility] Last Admin: 06/15/18 09:08 Dose: 10 meq Pramipexole Dihydrochloride (Mirapex) 1 mg PO DAILY@2200 [facility] [place] Last Admin: 06/14/18 21:21 Dose: 1 mg Pravastatin Sodium (Pravachol) 40 mg PO QHS [facility] [place] Last Admin: 06/14/18 21:21 Dose: 40 mg Risperidone (Risperdal) 0.25 mg PO DAILY [facility] [place] Last Admin: 06/15/18 09:11 Dose: 0.25 mg Senna/Docusate Sodium (Senokot-S, Clotilde-Colace) 1 tablet PO BID [facility] [place] Last Admin: 06/15/18 09:20 Dose: 1 tablet Sodium Chloride () 5 - 15 ml IV UD PRN PRN Reason: SALINE FLUSH Temazepam (Restoril) 30 mg PO QHS [facility] [place] Last Admin: 06/14/18 21:21 Dose: 30 mg Tolterodine Tartrate (Detrol La) 4 mg PO DAILY [facility] Last Admin: 06/15/18 09:12 Dose: 4 mg Medical Necessity - Tobacco Use Smoking Status: Current every day smoker Assessment/Plan All Active Problems (Last Reviewed 06/13/18 @ 22:00 by Yunior Heaton MD) UTI (urinary tract infection) (Acute) Severe sepsis (Acute) Hypoxemia (Acute) Suicidal ideation (Acute) COPD with exacerbation (Acute) Severe sepsis (Acute) Community acquired pneumonia (Acute) SIRS (systemic inflammatory response syndrome) (Acute) Viral illness (Acute) History of right hip replacement (Acute) Broken ankle (Acute) S/P laparoscopic cholecystectomy (Acute) S/P appendectomy (Acute) Acidosis (Acute) Acute and chronic respiratory failure with hypoxia (Acute) Nicotine abuse (Acute) Acute respiratory failure with hypercapnia (Acute) Acute respiratory failure with hypoxia and hypercapnia (Acute) Acute exacerbation of chronic obstructive airways disease (Acute) Hypokalemia (Acute) Subtherapeutic serum dilantin level (Acute) Subtherapeutic phenobarb level (Acute) Fever (Acute) Fracture of left great toe (Resolved) Frequent falls (Resolved) 1. Sepsis secondary to possible pneumonia versus his respiratory virus/COPD exacerbation -Respiratory panel returns with RSVP positive, so far cultures are negative and chest x-ray was unremarkable for consolidation -DC Rocephin and azithromycin today -Continue with her duo nebs, will add prednisone for COPD, and continue with the budesonide aerosol -Normal saline at 100 -Legionella and strep antigen were negative 2. Suicidal ideation/depression -She states today she has depression that comes and goes periodically. -Mentioned in the ER that she had a primer boxer and knows how to use it which was interpreted as suicidal ideation -Crisis will evaluate the patient when she is medically cleared which will likely be tomorrow if everything continues to progress. -Continue with Remeron, risperidone, temazepam 3. Glaucoma -Stable -Continue with eyedrops 4. Seizure disorder/restless legs -Stable currently -Continue with Requip, phenobarbital, Dilantin, Trileptal -Phenytoin level was slightly elevated to 21.1, normal is 10-20. -We will back off of the dosing for the Dilantin and monitor levels 5. Hypertension/hyperlipidemia -Stable -Continue with metoprolol and pravastatin 6. GERD -Stable -Continue with Zantac 7. Osteoporosis -On a bisphosphonate -Can continue if she is here on the day of the week she takes it DVT: Hiltonx Code Visit Inpatient E&M: 53556 Subs Hosp L2
--- NOTE | 2018-06-15 09:49 | PN_ITS ---
Patient Problems: Active and Suspected Problems (Last Reviewed 06/13/18 @ 22:00 by Yunior Heaton MD) Severe sepsis (Acute) Hypoxemia (Acute) Suicidal ideation (Acute) COPD with exacerbation (Acute) Severe sepsis (Acute) Community acquired pneumonia (Acute) Subjective: Sleeping, still feels short of breath nasal cannula, continuing with a cough Vitals/I&O's: Vital Signs Temp Pulse Resp BP Pulse Ox 97.6 F L 78 20 H 94/45 L 94 06/15/18 09:10 06/15/18 09:10 06/15/18 09:10 06/15/18 09:10 06/15/18 09:10 Oxygen Flow Rate (L/min) 4 Oxygen Delivery Method Nasal Cannula Weight: 157 lb 12.8 oz Body Mass Index (BMI) 26.2 Intake and Output for Last 24 Hours 06/13/18 06/14/18 06/15/18 23:59 23:59 23:59 Intake Total 98 / 98 3558 / 3558 700 / 700 Output Total 175 / 175 1650 / 1650 150 / 150 Balance -77 / -77 1908 / 1908 550 / 550 General: Alert, Oriented x3, Cooperative HEENT: Atraumatic, EOMI, Normocephalic Neck: Supple, No JVD Lungs: Normal air movement, No rhonchi, No rales, Wheezes, coarse Cardiovascular: Regular rate, Regular Rhythm, Normal S1, Normal S2, No murmurs Abdomen: Soft, Non Tender, Non-Distended, No Hepato-splenomegaly Extremities: No edema, Capillary Refill Less than 3 Seconds Skin: No rashes, No breakdown Neurological: Neuro grossly intact, Sensory exam intact to light touch and pain Psych/Mental Status: Flat Affect, Depressed Microbiology Past 72 Hours 06/13/18 19:08 Urine, Clean Catch Urine Culture - Final Mixed Gram Positive Organisms 06/13/18 23:10 Mucosa - Nose Respiratory Panel (PCR) - Final RSV B 06/13/18 19:08 Urine, Clean Catch Streptococcus pneumoniae Antigen (M - Final 06/13/18 19:08 Urine, Clean Catch Legionella Antigen - Final 06/13/18 18:18 Mucosa - Nasopharyngeal Influenza Types A,B Direct FA (JASWANT) - Final Laboratory Results 06/15/18 06:36: Sodium 141, Potassium 3.7, Chloride 109 H, Carbon Dioxide 24.0, Anion Gap 8, BUN 6 L, Creatinine 0.43 L, Estim Creat Clear Calc 48.45, Est GFR (MDRD) Af Amer 187, Est GFR (MDRD) Non-Af 154, BUN/Creatinine Ratio 13.9, Glucose 134 H, Calcium 7.7 L Current Medications Acetaminophen (Tylenol) 650 mg PO Q4H PRN PRN PRN Reason: FEVER Last Admin: 06/15/18 03:18 Dose: 650 mg Albuterol Sulfate (Ventolin Aerosols) 2.5 mg INHALATION Q2H PRN PRN PRN Reason: SHORTNESS OF BREATH Albuterol/Ipratropium (Duoneb) 3 ml INHALATION Q4H.RT [facility] Last Admin: 06/15/18 07:32 Dose: 3 ml Alendronate Sodium (Fosamax) 70 mg PO Fr@0600 [facility] Aspirin (Aspirin, Baby) 81 mg PO DAILY@0800 [facility] Last Admin: 06/15/18 09:08 Dose: 81 mg Bisacodyl (Dulcolax) 5 mg PO DAILY PRN PRN PRN Reason: Constipation Budesonide (Pulmicort Aerosol) 0.5 mg INHALATION Q12H.RT [facility] Last Admin: 06/15/18 07:32 Dose: 0.5 mg Enoxaparin Sodium (Lovenox) 40 mg SC DAILY@1000 [facility] Last Admin: 06/15/18 09:12 Dose: 40 mg Ergocalciferol (Vitamin D) 50,000 unit PO MO CHEN Etodolac (Lodine) 400 mg PO BIDCM [facility] Last Admin: 06/15/18 09:07 Dose: 400 mg Famotidine (Pepcid) 40 mg PO DAILY [facility] Last Admin: 06/15/18 09:11 Dose: 40 mg Gabapentin (Neurontin) 300 mg PO 4X/DAYCM [facility] Last Admin: 06/15/18 09:08 Dose: 300 mg Guaifenesin (Mucinex) 1,200 mg PO BID [facility] Last Admin: 06/15/18 09:11 Dose: 1,200 mg Hydrocortisone (Hytone) 1 applic TOPICAL BID [facility] Last Admin: 06/15/18 09:14 Dose: Not Given Sodium Chloride () 1,000 mls @ 100 mls/hr IV .Q10H [facility] Last Admin: 06/15/18 05:10 Dose: 100 mls/hr Latanoprost (Xalatan Opthalmic) 1 drop EACH EYE QHS [facility] Last Admin: 06/14/18 21:20 Dose: 1 drop Magnesium Hydroxide (Milk Of Magnesia) 30 ml PO DAILY PRN PRN PRN Reason: Constipation Melatonin (Melatonin) 10 mg PO QHS [facility] Last Admin: 06/14/18 21:20 Dose: 10 mg Methadone HCl () 10 mg PO TID [facility] Last Admin: 06/15/18 05:10 Dose: 10 mg Metoprolol Tartrate (Lopressor (Beta Maci)) 25 mg PO BID [facility] Last Admin: 06/15/18 09:25 Dose: Not Given Mirtazapine (Remeron) 15 mg PO QHS [facility] Last Admin: 06/14/18 21:21 Dose: 15 mg Ondansetron HCl (Zofran) 4 mg IV Q8H PRN PRN PRN Reason: Nausea Oxcarbazepine (Trileptal) 600 mg PO BID [facility] Last Admin: 06/15/18 09:11 Dose: 600 mg Phenobarbital (Phenobarbital) 32.4 mg PO BID [facility] Last Admin: 06/15/18 09:12 Dose: 32.4 mg Phenytoin Sodium (Dilantin) 100 mg PO TIDCM [facility] Last Admin: 06/15/18 09:08 Dose: 100 mg Potassium [facility] ([facility] Admin: 06/15/18 09:08 Dose: 10 meq Pramipexole Dihydrochloride (Mirapex) 1 mg PO DAILY@2200 [facility] Last Admin: 06/14/18 21:21 Dose: 1 mg Pravastatin Sodium (Pravachol) 40 mg PO QHS [facility] Last Admin: 06/14/18 21:21 Dose: 40 mg Risperidone (Risperdal) 0.25 mg PO DAILY [facility] Last Admin: 06/15/18 09:11 Dose: 0.25 mg Senna/Docusate Sodium (Senokot-S, Clotilde-Colace) 1 tablet PO BID [facility] Last Admin: 06/15/18 09:20 Dose: 1 tablet Sodium Chloride () 5 - 15 ml IV UD PRN PRN Reason: SALINE FLUSH Temazepam (Restoril) 30 mg PO QHS [facility] Last Admin: 06/14/18 21:21 Dose: 30 mg Tolterodine Tartrate (Detrol La) 4 mg PO DAILY [facility] Last Admin: 06/15/18 09:12 Dose: 4 mg Medical Necessity - Tobacco Use Smoking Status: Current every day smoker Assessment/Plan All Active Problems (Last Reviewed 06/13/18 @ 22:00 by Yunior Heaton MD) UTI (urinary tract infection) (Acute) Severe sepsis (Acute) Hypoxemia (Acute) Suicidal ideation (Acute) COPD with exacerbation (Acute) Severe sepsis (Acute) Community acquired pneumonia (Acute) SIRS (systemic inflammatory response syndrome) (Acute) Viral illness (Acute) History of right hip replacement (Acute) Broken ankle (Acute) S/P laparoscopic cholecystectomy (Acute) S/P appendectomy (Acute) Acidosis (Acute) Acute and chronic respiratory failure with hypoxia (Acute) Nicotine abuse (Acute) Acute respiratory failure with hypercapnia (Acute) Acute respiratory failure with hypoxia and hypercapnia (Acute) Acute exacerbation of chronic obstructive airways disease (Acute) Hypokalemia (Acute) Subtherapeutic serum dilantin level (Acute) Subtherapeutic phenobarb level (Acute) Fever (Acute) Fracture of left great toe (Resolved) Frequent falls (Resolved) 1. Sepsis secondary to possible pneumonia versus his respiratory virus/COPD exacerbation -Respiratory panel returns with RSVP positive, so far cultures are negative and chest x-ray was unremarkable for consolidation -DC Rocephin and azithromycin today -Continue with her duo nebs, will add prednisone for COPD, and continue with the budesonide aerosol -Normal saline at 100 -Legionella and strep antigen were negative 2. Suicidal ideation/depression -She states today she has depression that comes and goes periodically. -Mentioned in the ER that she had a boxing inspector and knows how to use it which was interpreted as suicidal ideation -Crisis will evaluate the patient when she is medically cleared which will likely be tomorrow if everything continues to progress. -Continue with Remeron, risperidone, temazepam 3. Glaucoma -Stable -Continue with eyedrops 4. Seizure disorder/restless legs -Stable currently -Continue with Requip, phenobarbital, Dilantin, Trileptal -Phenytoin level was slightly elevated to 21.1, normal is 10-20. -We will back off of the dosing for the Dilantin and monitor levels 5. Hypertension/hyperlipidemia -Stable -Continue with metoprolol and pravastatin 6. GERD -Stable -Continue with Zantac 7. Osteoporosis -On a bisphosphonate -Can continue if she is here on the day of the week she takes it DVT: Hiltonx Code Visit Inpatient E&M: 11926 Subs Hosp L2
[2018-06-15] MEDS: predniSONE 20 MG Tablet 40 MG PO (12:58)
[2018-06-15 13:08] LABS: Phenytoin (Dilantin) Level 16.8 mL (10.0-20.0)
--- NOTE | 2018-06-15 13:51 | RAD_ITS ---
STUDY: X-RAY CHEST REASON FOR EXAM: Female, 67 years old. TECHNIQUE: COMPARISON: June 13, 2018 FINDINGS: The lungs are clear and expanded heavy markings seen at the bases. There is no demonstrated pleural abnormality. Normal size heart. Normal mediastinum and denae. Normal visualized pulmonary arteries. Normal visualized aortic arch and descending thoracic aorta. Normal visualized thoracic spine. Normal visualized ribs, clavicles, and shoulders. There is no demonstrated abnormality of the visualized soft tissue structures of the upper abdomen. RAD/Chest PA and Lateral IMPRESSION: Heavy markings noted at the bases but no obvious consolidation or atelectasis no change noted since the study of June 13, 2018 Electronically Signed: Jl Wise, at 14:55 EST Tel , Service support ,
[2018-06-15 15:36] LABS: Base Excess -3 mmol/L (-2 to +2); Bicarbonate 23.3 mmol/L (22-26); Blood Gas Specimen Type ART; O2 Delivery Device Nasal Can; PO2 60 mmHG (75-100); SITE L Brachial; SO2 88 % (95-99); Time Given 1525; Total Carbon Dioxide 25 mmol/L; pCO2 44.2 mmHg (35-45); pH 7.33 (7.35-7.45)
--- NOTE | 2018-06-15 15:40 | CASEMGMT ---
RN CM NOTE: To room to complete assessment. Pt very SOB and having difficulty talking d/t SOB. RN states getting ready to put pt on BIPAP. CM to assess pt when medically stable and able to participate in assessment. Mariam REYES CM
[2018-06-15] MEDS: Metoprolol Tartrate 25 MG Tablet PO (21:20)
[2018-06-15] MEDS: Pramipexole Di-HCl 1 MG Tablet PO (21:20)
[2018-06-15] MEDS: MELATONIN 10 MG TABLET PO (21:20)
[2018-06-15] MEDS: Pravastatin 40 MG Tablet PO (21:21)
[2018-06-15] MEDS: Mirtazapine 15 MG Tablet PO (21:21)
[2018-06-15] MEDS: Latanoprost 0.005% 1 Bottle 1 DRP EACH EYE (21:24)
[2018-06-15] MEDS: Temazepam 15 MG Capsule 30 MG PO (21:30)
[2018-06-16] VITALS (36 sets, daily range): BP systolic 90–168; BP diastolic 46–147; PULSE 76–112; RESP 12–34; TEMP 36.3–37.1; O2SAT 94–100
[2018-06-16 01:35] LABS: Allen Test POS; Base Excess 2 mmol/L (-2 to +2); Bicarbonate 27.8 mmol/L (22-26); Blood Gas Specimen Type ART; FI02 40; PO2 94 mmHG (75-100); SITE R Radial; SO2 96 % (95-99); Time Given 115; Total Carbon Dioxide 29 mmol/L; pCO2 55.1 mmHg (35-45); pH 7.31 (7.35-7.45)
[2018-06-16] MEDS: Ipratropium/Albuterol Sulfate 3 ML AMPUL.NEB INHALATION ×5 (02:32→19:00)
--- NOTE | 2018-06-16 02:45 | CPS ---
pt refused CPAP and Bipap at first but then finally agreed to wear it due to SOB. Pt did not tolerate CPAP and felt more comfortable on Bipap
--- NOTE | 2018-06-16 03:30 | NURSING ---
Bipap was placed on patient by respiratory therapy at 0255 and patient requested for it to be removed at 0330. Bipap was removed at 0330.
[2018-06-16] MEDS: Acetaminophen 325 MG Tablet 650 MG PO (03:50)
--- NOTE | 2018-06-16 04:11 | NURSING ---
Patient asked for bipap to be put back on, bipap was reapplied at 0405, respiratory therapy was informed of it being reapplied.
[2018-06-16] MEDS: Alendronate Sodium 70 MG Tablet PO (05:36)
[2018-06-16] MEDS: Methadone 10 MG Tablet PO ×2 (05:36→13:39)
[2018-06-16 06:33] LABS: Absolute Lymphocyte Count 0.66 X10^3/ul (0.83-4.51); Absolute Neutrophil Count 3.8 X10^3/uL (2.0-7.7); Basophil# 0.02 X10^3/uL; Basophil% 0.4 % (0-1); Hematocrit 41.4 % (37-47); Hemoglobin 13.2 g/dl (12.0-15.0); Lymphocyte # 0.66 X10^3/ul (4.0); Lymphocyte % 13.1 % (19-41); Mean Corp Hgb Conc 31.9 g/gl (32-36); Mean Corpuscular Volume 97.2 fL (81-99); Mean Platelet Vol. 9.1 fl (6.2-12.0); Monocyte# 0.55 X10^3/uL; Neutrophil # 3.78 X10^3/uL (2.7-7.7); Neutrophil % 75.3 % (47-70); Platelet Count 157 K/mm3 (150-450); RBC Distribution Width CV 14.4 % (11.6-14.6); Red Blood Count 4.26 M/mm3 (4.2-5.4)
[2018-06-16 06:41] LABS: POSITIVE COUNT NO; POSITIVE DIFFERENTIAL NO; POSITIVE MORPHOLOGY NO
[2018-06-16] MEDS: Etodolac 200 MG Capsule 400 MG PO ×2 (09:38→16:49)
[2018-06-16] MEDS: Phenytoin Na 100 MG Capsule PO ×3 (09:38→16:49)
[2018-06-16] MEDS: Gabapentin 300 MG Capsule PO ×4 (09:38→21:53)
[2018-06-16] MEDS: Budesonide Respules 0.5 MG/2 ML AMPUL.NEB. INHALATION ×2 (10:30→19:10)
[2018-06-16] MEDS: Aspirin 81 MG TAB.CHEW PO (10:56)
[2018-06-16] MEDS: Metoprolol Tartrate 25 MG Tablet PO (10:56)
[2018-06-16] MEDS: Tolterodine Tartrate 4 MG CAP.SA PO (10:56)
[2018-06-16] MEDS: OXcarbazepine 600 MG Tablet PO ×2 (10:57→21:55)
[2018-06-16] MEDS: RisperiDONE 0.25 MG Tablet PO (10:57)
[2018-06-16] MEDS: Senna/Docusate Sodium 1 Tablet PO ×2 (10:57→21:54)
[2018-06-16] MEDS: Enoxaparin 40 MG/0.4 ML Syringe SC (10:57)
[2018-06-16] MEDS: Phenobarbital 32.4 MG Tablet PO ×2 (10:57→21:54)
[2018-06-16] MEDS: Famotidine 20 MG Tablet 40 MG PO (10:57)
[2018-06-16] MEDS: guaiFENesin 1,200 MG Tablet 1200 MG PO ×2 (11:04→21:53)
--- NOTE | 2018-06-16 12:19 | PCM.PROGNOTE ---
<Tavo Patino - Last Filed: 06/16/18 12:19> Patient Problems: Active and Suspected Problems (Last Reviewed 06/13/18 @ 22:00 by Yunior Heaton MD) Severe sepsis (Acute) Hypoxemia (Acute) Suicidal ideation (Acute) COPD with exacerbation (Acute) Severe sepsis (Acute) Community acquired pneumonia (Acute) Subjective: Pt continues to have some wheezing, SOB even with bipap thereapy. Nonproductive cough. No CP. No pain with deep inspiration. Pt does not use her CPAP at home, she wears a nasal canula at night instead. No LE edema or pain. No tachy or palpitations. No fever or chills. + Hx DVT. She still smokes and would like a patch. - Physical Exam General: Alert, Oriented x3, Cooperative HEENT: Atraumatic, PERRLA, EOMI, Normocephalic Neck: Supple, No JVD, Negative Carotid Bruits Lungs: Clear to auscultation, Normal air movement Cardiovascular: Regular rate, No murmurs Abdomen: Bowel Sounds Present, Soft, Non Tender Extremities: No edema, Capillary Refill Less than 3 Seconds Skin: No rashes, No breakdown Musculoskeletal: No Tenderness to Palpation of Joints or Extremities Neurological: Cranial nerves II-XII grossly intact Psych/Mental Status: Normal Affect, Appropriate, Alert and oriented to time, place, person, mood and affect Vital Signs Temp Pulse Resp BP Pulse Ox 97.3 F L 90 25 H 123/76 H 100 06/16/18 09:00 06/16/18 10:56 06/16/18 10:30 06/16/18 09:00 06/16/18 10:30 Oxygen Flow Rate (L/min) 15 Oxygen Delivery Method Bi-pap Weight: 157 lb 12.8 oz Body Mass Index (BMI) 26.2 Intake and Output for Last 24 Hours 06/14/18 06/15/18 06/16/18 23:59 23:59 23:59 Intake Total 3558 / 3558 1970 / 1970 793 / 793 Output Total 1650 / 1650 151 / 151 Balance 1908 / 1908 1820 / 1820 793 / 793 Microbiology Past 72 Hours 06/13/18 18:24 Blood Culture - Preliminary Blood Culture (Wb) - Anticubital Left No growth in 48 hours. 06/13/18 18:12 Blood Culture - Preliminary Blood Culture (Wb) - Anticubital Right No growth in 48 hours. 06/13/18 19:08 Urine Culture - Final Urine, Clean Catch Mixed Gram Positive Organisms 06/13/18 23:10 Respiratory Panel (PCR) - Final Mucosa - Nose RSV B 06/13/18 19:08 Streptococcus pneumoniae Antigen (M - Final Urine, Clean Catch 06/13/18 19:08 Legionella Antigen - Final Urine, Clean Catch 06/13/18 18:18 Influenza Types A,B Direct FA (JASWANT) - Final Mucosa - Nasopharyngeal Laboratory Tests Past 24 Hrs 06/15/18 06/15/18 06/16/18 12:20 15:29 01:30 WBC RBC Hgb Hct MCV MCH MCHC RDW RDW Differential Plt Count MPV Immature Gran % (Auto) Neut % (Auto) Lymph % (Auto) [place] % (Auto) Eos % (Auto) Baso % (Auto) Absolute Neuts (auto) Absolute Lymphs (auto) Total Counted Specimen Type ART ART Sample Site L Brachial R Radial pH 7.33 L 7.31 L Bicarbonate Actual 23.3 27.8 H POC Total CO2 25 29 Base Excess -3 L 2 O2 Saturation 88 L 96 O2 % 40 ABG pCO2 44.2 55.1 H ABG pO2 60 L 94 Romario Test NA POS O2 Delivery Device Nasal Can Vent Mask Liter Flow 3.0 Blood Gas Notified Whom HOSP MD HOSP MD Blood Gas Notified Time 1525 115 Phenytoin 16.8 06/16/18 06:13 WBC 5.0 RBC 4.26 Hgb 13.2 Hct 41.4 MCV 97.2 MCH 31.0 MCHC 31.9 L RDW 14.4 RDW Differential 50.0 H Plt Count 157 MPV 9.1 Immature Gran % (Auto) 0.200 Neut % (Auto) 75.3 H Lymph % (Auto) 13.1 L [place] % (Auto) 11.0 H Eos % (Auto) 0.0 Baso % (Auto) 0.4 Absolute Neuts (auto) 3.8 Absolute Lymphs (auto) 0.66 L Total Counted Not Reportable Specimen Type Sample Site pH Bicarbonate Actual POC Total CO2 Base Excess O2 Saturation O2 % ABG pCO2 ABG pO2 Romario Test O2 Delivery Device Liter Flow Blood Gas Notified Whom Blood Gas Notified Time Phenytoin Medical Necessity - Tobacco Use Smoking Status: Current every day smoker Assessment/Plan All Active Problems (Last Reviewed 06/13/18 @ 22:00 by Yunior Heaton MD) UTI (urinary tract infection) (Acute) Severe sepsis (Acute) Hypoxemia (Acute) Suicidal ideation (Acute) COPD with exacerbation (Acute) Severe sepsis (Acute) Community acquired pneumonia (Acute) SIRS (systemic inflammatory response syndrome) (Acute) Viral illness (Acute) History of right hip replacement (Acute) Broken ankle (Acute) S/P laparoscopic cholecystectomy (Acute) S/P appendectomy (Acute) Acidosis (Acute) Acute and chronic respiratory failure with hypoxia (Acute) Nicotine abuse (Acute) Acute respiratory failure with hypercapnia (Acute) Acute respiratory failure with hypoxia and hypercapnia (Acute) Acute exacerbation of chronic obstructive airways disease (Acute) Hypokalemia (Acute) Subtherapeutic serum dilantin level (Acute) Subtherapeutic phenobarb level (Acute) Fever (Acute) Fracture of left great toe (Resolved) Frequent falls (Resolved) 1. Acute hypoxic respiratory failure 2/2 acute severe sepsis 2/2 RSV bronchitis and acute COPD exacerbation - continue bipap, IV steroids, aerosols, azithromycin, supportive care. Still somewhat acidotic with inc. co2 on ABG today. 2. Chronic hypoxic respiratory failure - normally only uses O2 at night 3. Hx CHUY - noncompliant with CPAP 4. Nicotine abuse - continues to smoke. Place patch today, 5. Glaucoma - home drops 6. Seizure disorder / RLS - home meds 7. HTN - stable 8. Osteoporosis - bisphosphonate. 9. Hx DVT - not on OAC. No cp, pleurisy, LE edema, calf pain, tenderness. Continue dvt ppx. DVT ppx: lovenox DC planning: pt unable to tolerate off Bipap yet. This patient was seen by Tavo Patino PA-C under the supervision of Doctor Palma. <Abelardo Waldrop F - Last Filed: 06/16/18 16:48> - Physical Exam Vital Signs Temp Pulse Resp BP Pulse Ox 97.6 F L 84 23 H 108/63 98 06/16/18 13:00 06/16/18 15:08 06/16/18 15:00 06/16/18 15:00 06/16/18 15:00 Oxygen Flow Rate (L/min) 15 Oxygen Delivery Method Bi-pap Weight: 157 lb 12.804 oz Body Mass Index (BMI) 26.2 Intake and Output for Last 24 Hours 06/14/18 06/15/18 06/16/18 23:59 23:59 23:59 Intake Total 3558 / 3558 1970 793 / 793 Output Total 1650 / 1650 151 / 151 Balance 1908 / 1908 1820 / 1820 793 / 793 Microbiology Past 72 Hours 06/13/18 18:24 Blood Culture - Preliminary Blood Culture (Wb) - Anticubital Left No growth in 48 hours. 06/13/18 18:12 Blood Culture - Preliminary Blood Culture (Wb) - Anticubital Right No growth in 48 hours. 06/13/18 19:08 Urine Culture - Final Urine, Clean Catch Mixed Gram Positive Organisms 06/13/18 23:10 Respiratory Panel (PCR) - Final Mucosa - Nose RSV B 06/13/18 19:08 Streptococcus pneumoniae Antigen (M - Final Urine, Clean Catch 06/13/18 19:08 Legionella Antigen - Final Urine, Clean Catch 06/13/18 18:18 Influenza Types A,B Direct FA (JASWANT) - Final Mucosa - Nasopharyngeal Laboratory Tests Past 24 Hrs 06/16/18 06/16/18 01:30 06:13 WBC 5.0 RBC 4.26 Hgb 13.2 Hct 41.4 MCV 97.2 MCH 31.0 MCHC 31.9 L RDW 14.4 RDW Differential 50.0 H Plt Count 157 MPV 9.1 Immature Gran % (Auto) 0.200 Neut % (Auto) 75.3 H Lymph % (Auto) 13.1 L [place] % (Auto) 11.0 H Eos % (Auto) 0.0 Baso % (Auto) 0.4 Absolute Neuts (auto) 3.8 Absolute Lymphs (auto) 0.66 L Total Counted Not Reportable Specimen Type ART Sample Site R Radial pH 7.31 L Bicarbonate Actual 27.8 H POC Total CO2 29 Base Excess 2 O2 Saturation 96 O2 % 40 ABG pCO2 55.1 H ABG pO2 94 Romario Test POS O2 Delivery Device Vent Mask Blood Gas Notified Whom HOSP Blood Gas Notified Time 115 Assessment/Plan Addendum: Dr. Waldrop I personally examined the patient and reviewed the chart. I agree with the above. 67-year-old female presenting with RSV bronchitis leading to a COPD exacerbation. At this time I do not think that she had severe sepsis on presentation and this was all a combination of her respiratory virus and her underlying pulmonary disease. Will treat as a COPD exacerbation with steroids and duo nebs. We will continue with the BiPAP at this time, until she can demonstrate stability in her vital signs. She does appear to be less tachypneic today than she was yesterday. She does continue with suicidal ideation and depression and therefore once she is more medically stable will contact crisis for evaluation and treatment. Code Visit Inpatient E&M: 96269 Subs Hosp L2
[2018-06-16] MEDS: 0.9% NaCl Peripheral Flush Adult/Peds IV ×2 (13:45→21:56)
--- NOTE | 2018-06-16 14:00 | NURSING ---
Per patient Yaakov can take home her personal belongings that include her purse and keys. Patients bag of belongings given to Yaakov at patients request. Darnell REYES and GAURAVc[employer]gage witness of converstaion.
[2018-06-16] MEDS: MELATONIN 10 MG TABLET PO (21:53)
[2018-06-16] MEDS: Pramipexole Di-HCl 1 MG Tablet PO (21:53)
[2018-06-16] MEDS: Mirtazapine 15 MG Tablet PO (21:54)
[2018-06-16] MEDS: Pravastatin 40 MG Tablet PO (21:54)
[2018-06-16] MEDS: Latanoprost 0.005% 1 Bottle 1 DRP EACH EYE (21:55)
[2018-06-17] VITALS (21 sets, daily range): BP systolic 100–135; BP diastolic 53–99; PULSE 81–96; RESP 12–26; TEMP 36.6–37.1; O2SAT 96–100
[2018-06-17] MEDS: Acetaminophen 325 MG Tablet 650 MG PO (02:43)
[2018-06-17 06:27] LABS: Anion Gap 10 (5-15); BUN 12 mg/dL (7-18); BUN/Creat Ratio 32.6 RATIO (10-20); Calcium,Total 7.6 mg/dL (8.5-10.1); Chloride 105 mmol/L (98-107); Creatinine, Serum 0.37 mg/dL (0.55-1.02); EST Glomerular Filtration Rate 185 mL/min (>60); Est Glom Filt Rate - Afr Amer 224 mL/min (>60); Estimated Creatinine Clearance 48.45 ml/min; Glucose 119 mg/dL (74-106); Potassium 4.1 mmol/L (3.5-5.1); Sodium Level 142 mmol/L (136-145)
[2018-06-17] MEDS: Methadone 10 MG Tablet PO ×3 (06:50→22:25)
[2018-06-17] MEDS: 0.9% NaCl Peripheral Flush Adult/Peds IV ×3 (06:58→22:27)
[2018-06-17] MEDS: Ipratropium/Albuterol Sulfate 3 ML AMPUL.NEB INHALATION ×4 (07:09→19:35)
[2018-06-17] MEDS: Budesonide Respules 0.5 MG/2 ML AMPUL.NEB. INHALATION ×2 (07:09→19:35)
[2018-06-17] MEDS: Etodolac 200 MG Capsule 400 MG PO ×2 (08:09→16:01)
[2018-06-17] MEDS: Aspirin 81 MG TAB.CHEW PO (08:09)
[2018-06-17] MEDS: Gabapentin 300 MG Capsule PO ×4 (08:09→22:25)
[2018-06-17] MEDS: Phenytoin Na 100 MG Capsule PO ×3 (08:13→16:01)
--- NOTE | 2018-06-17 08:28 | PCM.PN.HOSP ---
Patient Problems: Active and Suspected Problems (Last Reviewed 06/13/18 @ 22:00 by Yunior Heaton MD) Severe sepsis (Acute) Hypoxemia (Acute) Suicidal ideation (Acute) COPD with exacerbation (Acute) Severe sepsis (Acute) Community acquired pneumonia (Acute) Subjective: Much better on BiPAP seems to be breathing easier, no chest pain. Vitals/I&O's: Vital Signs Temp Pulse Resp BP Pulse Ox 98.2 F 88 20 H 125/81 H 99 06/17/18 07:40 06/17/18 07:40 06/17/18 07:40 06/17/18 07:40 06/17/18 07:40 Oxygen Flow Rate (L/min) 4 Oxygen Delivery Method Nasal Cannula Weight: 157 lb 12.804 oz Body Mass Index (BMI) 26.2 Intake and Output for Last 24 Hours 06/15/18 06/16/18 06/17/18 23:59 23:59 23:59 Intake Total 1970 / 1970 793 / 793 480 / 480 Output Total 151 / 151 Balance 1820 / 1820 793 / 793 479 / 479 General: Alert, Oriented x3, Cooperative HEENT: Atraumatic, EOMI, Normocephalic Neck: Supple, No JVD Lungs: Normal air movement, No rhonchi, No rales, min wheezes Cardiovascular: Regular rate, Regular Rhythm, Normal S1, Normal S2, No murmurs Abdomen: Soft, Non Tender, Non-Distended, No Hepato-splenomegaly Extremities: No edema, Capillary Refill Less than 3 Seconds Skin: No rashes, No breakdown Neurological: Neuro grossly intact, Sensory exam intact to light touch and pain Psych/Mental Status: Flat Affect, Depressed Microbiology Past 72 Hours 06/13/18 18:24 Blood Culture (Wb) - Anticubital Left Blood Culture - Preliminary No growth in 48 hours. 06/13/18 18:12 Blood Culture (Wb) - Anticubital Right Blood Culture - Preliminary No growth in 48 hours. 06/13/18 19:08 Urine, Clean Catch Urine Culture - Final Mixed Gram Positive Organisms 06/13/18 23:10 Mucosa - Nose Respiratory Panel (PCR) - Final RSV B Laboratory Results 06/17/18 05:35: Sodium 142, Potassium 4.1, Chloride 105, Carbon Dioxide 27.0, Anion Gap 10, BUN 12, Creatinine 0.37 L, Estim Creat Clear Calc 48.45, Est GFR (MDRD) Af Amer 224, Est GFR (MDRD) Non-Af 185, BUN/Creatinine Ratio 32.6 H, Glucose 119 H, Calcium 7.6 L Current Medications Acetaminophen (Tylenol) 650 mg PO Q4H PRN PRN PRN Reason: FEVER Last Admin: 06/17/18 02:43 Dose: 650 mg Albuterol Sulfate (Ventolin Aerosols) 2.5 mg INHALATION Q2H PRN PRN PRN Reason: SHORTNESS OF BREATH Albuterol/Ipratropium (Duoneb) 3 ml INHALATION Q4H.RT [facility] Last Admin: 06/17/18 07:09 Dose: 3 ml Alendronate Sodium (Fosamax) 70 mg PO Fr@0600 [facility] Last Admin: 06/16/18 05:36 Dose: 70 mg Aspirin (Aspirin, Baby) 81 mg PO DAILY@0800 [facility] Last Admin: 06/17/18 08:09 Dose: 81 mg Bisacodyl (Dulcolax) 5 mg PO DAILY PRN PRN PRN Reason: Constipation Budesonide (Pulmicort Aerosol) 0.5 mg INHALATION Q12H.RT [facility] Last Admin: 06/17/18 07:09 Dose: 0.5 mg Enoxaparin Sodium (Lovenox) 40 mg SC DAILY@1000 [facility] Last Admin: 06/16/18 10:57 Dose: 40 mg Ergocalciferol (Vitamin D) 50,000 unit PO MO [facility] Etodolac (Lodine) 400 mg PO BIDCM [facility] Last Admin: 06/17/18 08:09 Dose: 400 mg Famotidine (Pepcid) 40 mg PO DAILY [facility] Last Admin: 06/16/18 10:57 Dose: 40 mg Gabapentin (Neurontin) 300 mg PO 4X/DAYCM [facility] Last Admin: 06/17/18 08:09 Dose: 300 mg Guaifenesin (Mucinex) 1,200 mg PO BID [facility] Last Admin: 06/16/18 21:53 Dose: 1,200 mg Hydrocortisone (Hytone) 1 applic TOPICAL BID [facility] Last Admin: 06/16/18 21:52 Dose: Not Given Latanoprost (Xalatan Opthalmic) 1 drop EACH EYE QHS [facility] Last Admin: 06/16/18 21:55 Dose: 1 drop Magnesium Hydroxide (Milk Of Magnesia) 30 ml PO DAILY PRN PRN PRN Reason: Constipation Melatonin (Melatonin) 10 mg PO QHS [facility] Last Admin: 06/16/18 21:53 Dose: 10 mg Methadone HCl () 10 mg PO TID [facility] Last Admin: 06/17/18 06:50 Dose: 10 mg Methylprednisolone (Solu-Medrol) 40 mg IV Q8 [facility] Last Admin: 06/17/18 06:50 Dose: 40 mg Metoprolol Tartrate (Lopressor (Beta Maci)) 25 mg PO BID [facility] Last Admin: 06/16/18 21:52 Dose: Not Given Mirtazapine (Remeron) 15 mg PO QHS [facility] Last Admin: 06/16/18 21:54 Dose: 15 mg Nicotine (Nicoderm Cq (Pbkc)) 21 mg TRANSDERM. DAILY [facility] Last Admin: 06/16/18 13:38 Dose: 21 mg Ondansetron HCl (Zofran) 4 mg IV Q8H PRN PRN PRN Reason: Nausea Oxcarbazepine (Trileptal) 600 mg PO BID [facility] Last Admin: 06/16/18 21:55 Dose: 600 mg Phenobarbital (Phenobarbital) 32.4 mg PO BID [facility] Last Admin: 06/16/18 21:54 Dose: 32.4 mg Phenytoin Sodium (Dilantin) 100 mg PO TIDCM [facility] Last Admin: 06/17/18 08:13 Dose: 100 mg Potassium Chloride (K-Dur) 10 meq [facility] Last Admin: 06/17/18 08:09 Dose: 10 meq Pramipexole Dihydrochloride (Mirapex) 1 mg PO DAILY@2200 [facility] Last Admin: 06/16/18 21:53 Dose: 1 mg Pravastatin Sodium (Pravachol) 40 mg PO QHS [facility] Last Admin: 06/16/18 21:54 Dose: 40 mg Risperidone (Risperdal) 0.25 mg PO DAILY [facility] Last Admin: 06/16/18 10:57 Dose: 0.25 mg Senna/Docusate Sodium (Senokot-S, Clotilde-Colace) 1 tablet PO BID [facility] Last Admin: 06/16/18 21:54 Dose: 1 tablet Sodium Chloride () 5 - 15 ml IV UD PRN PRN Reason: SALINE FLUSH Last Admin: 06/17/18 06:58 Dose: 10 ml Temazepam (Restoril) 30 mg PO QHS [facility] Last Admin: 06/16/18 21:54 Dose: Not Given Tolterodine Tartrate (Detrol La) 4 mg PO DAILY [facility] Last Admin: 06/16/18 10:56 Dose: 4 mg Medical Necessity - Tobacco Use Smoking Status: Current every day smoker Assessment/Plan All Active Problems (Last Reviewed 06/13/18 @ 22:00 by Yunior Heaton MD) UTI (urinary tract infection) (Acute) Severe sepsis (Acute) Hypoxemia (Acute) Suicidal ideation (Acute) COPD with exacerbation (Acute) Severe sepsis (Acute) Community acquired pneumonia (Acute) SIRS (systemic inflammatory response syndrome) (Acute) Viral illness (Acute) History of right hip replacement (Acute) Broken ankle (Acute) S/P laparoscopic cholecystectomy (Acute) S/P appendectomy (Acute) Acidosis (Acute) Acute and chronic respiratory failure with hypoxia (Acute) Nicotine abuse (Acute) Acute respiratory failure with hypercapnia (Acute) Acute respiratory failure with hypoxia and hypercapnia (Acute) Acute exacerbation of chronic obstructive airways disease (Acute) Hypokalemia (Acute) Subtherapeutic serum dilantin level (Acute) Subtherapeutic phenobarb level (Acute) Fever (Acute) Fracture of left great toe (Resolved) Frequent falls (Resolved) 1. RSV B URI/COPD exacerbation -Respiratory panel returns with RSVP positive, so far cultures are negative and chest x-ray was unremarkable for consolidation -Continue with her duo nebs, solumedrol TID and continue with the budesonide aerosol -Legionella and strep antigen were negative -Sepsis ruled out 2. Suicidal ideation/depression -She states today she has depression that comes and goes periodically. -Mentioned in the ER that she had a box coverer hand and knows how to use it which was interpreted as suicidal ideation -Crisis will evaluate the patient when she is medically cleared which will likely be tomorrow if everything continues to progress. -Continue with Remeron, risperidone, temazepam 3. Glaucoma -Stable -Continue with eyedrops 4. Seizure disorder/restless legs -Stable currently -Continue with Requip, phenobarbital, Dilantin, Trileptal -Phenytoin level was slightly elevated to 21.1, normal is 10-20. -We will back off of the dosing for the Dilantin and monitor levels, repeat was 16.1 5. Hypertension/hyperlipidemia -Stable -Continue with metoprolol and pravastatin 6. GERD -Stable -Continue with Zantac 7. Osteoporosis -On a bisphosphonate -Can continue if she is here on the day of the week she takes it DVT: Lovenox Code Visit Inpatient E&M: 60763 Subs Hosp L2
--- NOTE | 2018-06-17 08:31 | PN_ITS ---
Patient Problems: Active and Suspected Problems (Last Reviewed 06/13/18 @ 22:00 by Yunior Heaton MD) Severe sepsis (Acute) Hypoxemia (Acute) Suicidal ideation (Acute) COPD with exacerbation (Acute) Severe sepsis (Acute) Community acquired pneumonia (Acute) Subjective: Much better on BiPAP seems to be breathing easier, no chest pain. Vitals/I&O's: Vital Signs Temp Pulse Resp BP Pulse Ox 98.2 F 88 20 H 125/81 H 99 06/17/18 07:40 06/17/18 07:40 06/17/18 07:40 06/17/18 07:40 06/17/18 07:40 Oxygen Flow Rate (L/min) 4 Oxygen Delivery Method Nasal Cannula Weight: 157 lb 12.804 oz Body Mass Index (BMI) 26.2 Intake and Output for Last 24 Hours 06/15/18 06/16/18 06/17/18 23:59 23:59 23:59 Intake Total 1970 / 1970 793 / 793 480 / 480 Output Total 151 / 151 Balance 1820 / 1820 793 / 793 479 / 479 General: Alert, Oriented x3, Cooperative HEENT: Atraumatic, EOMI, Normocephalic Neck: Supple, No JVD Lungs: Normal air movement, No rhonchi, No rales, min wheezes Cardiovascular: Regular rate, Regular Rhythm, Normal S1, Normal S2, No murmurs Abdomen: Soft, Non Tender, Non-Distended, No Hepato-splenomegaly Extremities: No edema, Capillary Refill Less than 3 Seconds Skin: No rashes, No breakdown Neurological: Neuro grossly intact, Sensory exam intact to light touch and pain Psych/Mental Status: Flat Affect, Depressed Microbiology Past 72 Hours 06/13/18 18:24 Blood Culture (Wb) - Anticubital Left Blood Culture - Preliminary No growth in 48 hours. 06/13/18 18:12 Blood Culture (Wb) - Anticubital Right Blood Culture - Preliminary No growth in 48 hours. 06/13/18 19:08 Urine, Clean Catch Urine Culture - Final Mixed Gram Positive Organisms 06/13/18 23:10 Mucosa - Nose Respiratory Panel (PCR) - Final RSV B Laboratory Results 06/17/18 05:35: Sodium 142, Potassium 4.1, Chloride 105, Carbon Dioxide 27.0, Anion Gap 10, BUN 12, Creatinine 0.37 L, Estim Creat Clear Calc 48.45, Est GFR (MDRD) Af Amer 224, Est GFR (MDRD) Non-Af 185, BUN/Creatinine Ratio 32.6 H, Glucose 119 H, Calcium 7.6 L Current Medications Acetaminophen (Tylenol) 650 mg PO Q4H PRN PRN PRN Reason: FEVER Last Admin: 06/17/18 02:43 Dose: 650 mg Albuterol Sulfate (Ventolin Aerosols) 2.5 mg INHALATION Q2H PRN PRN PRN Reason: SHORTNESS OF BREATH Albuterol/Ipratropium (Duoneb) 3 ml INHALATION Q4H.RT [facility] Last Admin: 06/17/18 07:09 Dose: 3 ml Alendronate Sodium (Fosamax) 70 mg PO Fr@0600 [facility] Last Admin: 06/16/18 05:36 Dose: 70 mg Aspirin (Aspirin, Baby) 81 mg PO DAILY@0800 [facility] Last Admin: 06/17/18 08:09 Dose: 81 mg Bisacodyl (Dulcolax) 5 mg PO DAILY PRN PRN PRN Reason: Constipation Budesonide (Pulmicort Aerosol) 0.5 mg INHALATION Q12H.RT [facility] Last Admin: 06/17/18 07:09 Dose: 0.5 mg Enoxaparin Sodium (Lovenox) 40 mg SC DAILY@1000 [facility] Last Admin: 06/16/18 10:57 Dose: 40 mg Ergocalciferol (Vitamin D) 50,000 unit PO MO [facility] Etodolac (Lodine) 400 mg PO BIDCM [facility] Last Admin: 06/17/18 08:09 Dose: 400 mg Famotidine (Pepcid) 40 mg PO DAILY [facility] Last Admin: 06/16/18 10:57 Dose: 40 mg Gabapentin (Neurontin) 300 mg PO 4X/DAYCM [facility] Last Admin: 06/17/18 08:09 Dose: 300 mg Guaifenesin (Mucinex) 1,200 mg PO BID [facility] Last Admin: 06/16/18 21:53 Dose: 1,200 mg Hydrocortisone (Hytone) 1 applic TOPICAL BID [facility] Last Admin: 06/16/18 21:52 Dose: Not Given Latanoprost (Xalatan Opthalmic) 1 drop EACH EYE QHS [facility] Last Admin: 06/16/18 21:55 Dose: 1 drop Magnesium Hydroxide (Milk Of Magnesia) 30 ml PO DAILY PRN PRN PRN Reason: Constipation Melatonin (Melatonin) 10 mg PO QHS [facility] Last Admin: 06/16/18 21:53 Dose: 10 mg Methadone HCl () 10 mg PO TID [facility] Last Admin: 06/17/18 06:50 Dose: 10 mg Methylprednisolone (Solu-Medrol) 40 mg IV Q8 [facility] Last Admin: 06/17/18 06:50 Dose: 40 mg Metoprolol Tartrate (Lopressor (Beta Maci)) 25 mg PO BID [facility] Last Admin: 06/16/18 21:52 Dose: Not Given Mirtazapine (Remeron) 15 mg PO QHS [facility] Last Admin: 06/16/18 21:54 Dose: 15 mg Nicotine (Nicoderm Cq (Pbkc)) 21 mg TRANSDERM. DAILY [facility] Last Admin: 06/16/18 13:38 Dose: 21 mg Ondansetron HCl (Zofran) 4 mg IV Q8H PRN PRN PRN Reason: Nausea Oxcarbazepine (Trileptal) 600 mg PO BID [facility] Last Admin: 06/16/18 21:55 Dose: 600 mg Phenobarbital (Phenobarbital) 32.4 mg PO BID [facility] Last Admin: 06/16/18 21:54 Dose: 32.4 mg Phenytoin Sodium (Dilantin) 100 mg PO TIDCM [facility] Last Admin: 06/17/18 08:13 Dose: 100 mg Potassium [facility] ([facility]) [facility] Last Admin: 06/17/18 08:09 Dose: 10 meq Pramipexole Dihydrochloride (Mirapex) 1 mg PO DAILY@2200 [facility] Last Admin: 06/16/18 21:53 Dose: 1 mg Pravastatin Sodium (Pravachol) 40 mg PO QHS [facility] Last Admin: 06/16/18 21:54 Dose: 40 mg Risperidone (Risperdal) 0.25 mg PO DAILY [facility] Last Admin: 06/16/18 10:57 Dose: 0.25 mg Senna/Docusate Sodium (Senokot-S, Clotilde-Colace) 1 tablet PO BID [facility] Last Admin: 06/16/18 21:54 Dose: 1 tablet Sodium Chloride () 5 - 15 ml IV UD PRN PRN Reason: SALINE FLUSH Last Admin: 06/17/18 06:58 Dose: 10 ml Temazepam (Restoril) 30 mg PO QHS [facility] Last Admin: 06/16/18 21:54 Dose: Not Given Tolterodine Tartrate (Detrol La) 4 mg PO DAILY [facility] Last Admin: 06/16/18 10:56 Dose: 4 mg Medical Necessity - Tobacco Use Smoking Status: Current every day smoker Assessment/Plan All Active Problems (Last Reviewed 06/13/18 @ 22:00 by Yunior Heaton MD) UTI (urinary tract infection) (Acute) Severe sepsis (Acute) Hypoxemia (Acute) Suicidal ideation (Acute) COPD with exacerbation (Acute) Severe sepsis (Acute) Community acquired pneumonia (Acute) SIRS (systemic inflammatory response syndrome) (Acute) Viral illness (Acute) History of right hip replacement (Acute) Broken ankle (Acute) S/P laparoscopic cholecystectomy (Acute) S/P appendectomy (Acute) Acidosis (Acute) Acute and chronic respiratory failure with hypoxia (Acute) Nicotine abuse (Acute) Acute respiratory failure with hypercapnia (Acute) Acute respiratory failure with hypoxia and hypercapnia (Acute) Acute exacerbation of chronic obstructive airways disease (Acute) Hypokalemia (Acute) Subtherapeutic serum dilantin level (Acute) Subtherapeutic phenobarb level (Acute) Fever (Acute) Fracture of left great toe (Resolved) Frequent falls (Resolved) 1. RSV B URI/COPD exacerbation -Respiratory panel returns with RSVP positive, so far cultures are negative and chest x-ray was unremarkable for consolidation -Continue with her duo nebs, solumedrol TID and continue with the budesonide aerosol -Legionella and strep antigen were negative -Sepsis ruled out 2. Suicidal ideation/depression -She states today she has depression that comes and goes periodically. -Mentioned in the ER that she had a box feeder and knows how to use it which was interpreted as suicidal ideation -Crisis will evaluate the patient when she is medically cleared which will likely be tomorrow if everything continues to progress. -Continue with Remeron, risperidone, temazepam 3. Glaucoma -Stable -Continue with eyedrops 4. Seizure disorder/restless legs -Stable currently -Continue with Requip, phenobarbital, Dilantin, Trileptal -Phenytoin level was slightly elevated to 21.1, normal is 10-20. -We will back off of the dosing for the Dilantin and monitor levels, repeat was 16.1 5. Hypertension/hyperlipidemia -Stable -Continue with metoprolol and pravastatin 6. GERD -Stable -Continue with Zantac 7. Osteoporosis -On a bisphosphonate -Can continue if she is here on the day of the week she takes it DVT: Lovenox Code Visit Inpatient E&M: 70416 Subs Hosp L2
[2018-06-17] MEDS: Enoxaparin 40 MG/0.4 ML Syringe SC (10:28)
[2018-06-17] MEDS: Metoprolol Tartrate 25 MG Tablet PO ×2 (10:29→22:26)
[2018-06-17] MEDS: Phenobarbital 32.4 MG Tablet PO ×2 (10:29→22:26)
[2018-06-17] MEDS: guaiFENesin 1,200 MG Tablet 1200 MG PO ×2 (10:29→22:25)
[2018-06-17] MEDS: Tolterodine Tartrate 4 MG CAP.SA PO (10:29)
[2018-06-17] MEDS: RisperiDONE 0.25 MG Tablet PO (10:30)
[2018-06-17] MEDS: OXcarbazepine 600 MG Tablet PO ×2 (10:30→22:25)
[2018-06-17] MEDS: Senna/Docusate Sodium 1 Tablet PO ×2 (10:30→22:25)
[2018-06-17] MEDS: Famotidine 20 MG Tablet 40 MG PO (10:31)
[2018-06-17] MEDS: Benzonatate 100 MG Capsule PO ×2 (16:01→23:55)
[2018-06-17] MEDS: Latanoprost 0.005% 1 Bottle 1 DRP EACH EYE (22:24)
[2018-06-17] MEDS: Pramipexole Di-HCl 1 MG Tablet PO (22:25)
[2018-06-17] MEDS: MELATONIN 10 MG TABLET PO (22:26)
[2018-06-17] MEDS: Mirtazapine 15 MG Tablet PO (22:26)
[2018-06-17] MEDS: Pravastatin 40 MG Tablet PO (22:26)
[2018-06-17] MEDS: Temazepam 15 MG Capsule 30 MG PO (22:26)
[2018-06-18] VITALS (25 sets, daily range): BP systolic 106–132; BP diastolic 55–71; PULSE 71–100; RESP 12–33; TEMP 36.3–37.2; O2SAT 97–100
[2018-06-18] MEDS: Ipratropium/Albuterol Sulfate 3 ML AMPUL.NEB INHALATION ×6 (00:10→22:10)
[2018-06-18] MEDS: 0.9% NaCl Peripheral Flush Adult/Peds IV ×3 (05:49→21:16)
[2018-06-18] MEDS: Methadone 10 MG Tablet PO ×3 (05:49→21:15)
--- NOTE | 2018-06-18 06:56 | PCM.PN.HOSP ---
Patient Problems: Active and Suspected Problems (Last Reviewed 06/13/18 @ 22:00 by Yunior Heaton MD) Severe sepsis (Acute) Hypoxemia (Acute) Suicidal ideation (Acute) COPD with exacerbation (Acute) Severe sepsis (Acute) Community acquired pneumonia (Acute) Subjective: Feels much better currently on nasal cannula, appears to be breathing easier. No chest pain. Vitals/I&O's: Vital Signs Temp Pulse Resp BP Pulse Ox 98.9 F 82 22 H 113/71 100 06/18/18 05:45 06/18/18 05:45 06/18/18 05:45 06/18/18 05:45 06/18/18 05:45 Oxygen Flow Rate (L/min) 4 Oxygen Delivery Method Bi-pap Weight: 157 lb 12.804 oz Body Mass Index (BMI) 26.2 Intake and Output for Last 24 Hours 06/16/18 06/17/18 06/18/18 23:59 23:59 23:59 Intake Total 793 / 793 2150 / 2150 Output Total 100 / 100 Balance 793 / 793 2149 / 2149 -70 / -70 General: Alert, Oriented x3, Cooperative HEENT: Atraumatic, EOMI, Normocephalic Neck: Supple, No JVD Lungs: Normal air movement, No rhonchi, No rales, min wheezes Cardiovascular: Regular rate, Regular Rhythm, Normal S1, Normal S2, No murmurs Abdomen: Soft, Non Tender, Non-Distended, No Hepato-splenomegaly Extremities: No edema, Capillary Refill Less than 3 Seconds Skin: No rashes, No breakdown Neurological: Neuro grossly intact, Sensory exam intact to light touch and pain Psych/Mental Status: Flat Affect, Depressed Microbiology Past 72 Hours 06/13/18 18:24 Blood Culture (Wb) - Anticubital Left Blood Culture - Preliminary No growth in 48 hours. 06/13/18 18:12 Blood Culture (Wb) - Anticubital Right Blood Culture - Preliminary No growth in 48 hours. 06/13/18 19:08 Urine, Clean Catch Urine Culture - Final Mixed Gram Positive Organisms Current Medications Acetaminophen (Tylenol) 650 mg PO Q4H PRN PRN PRN Reason: FEVER Last Admin: 06/17/18 02:43 Dose: 650 mg Albuterol Sulfate (Ventolin Aerosols) 2.5 mg INHALATION Q2H PRN PRN PRN Reason: SHORTNESS OF BREATH Albuterol/Ipratropium (Duoneb) 3 ml INHALATION Q4H.RT [facility] Last Admin: 06/18/18 03:38 Dose: 3 ml Alendronate Sodium (Fosamax) 70 mg PO Fr@0600 [facility] Last Admin: 06/16/18 05:36 Dose: 70 mg Aspirin (Aspirin, Baby) 81 mg PO DAILY@0800 [facility] Last Admin: 06/17/18 08:09 Dose: 81 mg Benzonatate (Tessalon Perle) 100 mg PO TID PRN PRN PRN Reason: COUGH Last Admin: 06/17/18 23:55 Dose: 100 mg Bisacodyl (Dulcolax) 5 mg PO DAILY PRN PRN PRN Reason: Constipation Budesonide (Pulmicort Aerosol) 0.5 mg INHALATION Q12H.RT [facility] Last Admin: 06/17/18 19:35 Dose: 0.5 mg Enoxaparin Sodium (Lovenox) 40 mg SC DAILY@1000 [facility] Last Admin: 06/17/18 10:28 Dose: 40 mg Ergocalciferol (Vitamin D) 50,000 unit PO MO [facility] Etodolac (Lodine) 400 mg PO BIDCM [facility] Last Admin: 06/17/18 16:01 Dose: 400 mg Famotidine (Pepcid) 40 mg PO DAILY [facility] Last Admin: 06/17/18 10:31 Dose: 40 mg Gabapentin (Neurontin) 300 mg PO 4X/DAYCM [facility] Last Admin: 06/17/18 22:25 Dose: 300 mg Guaifenesin (Mucinex) 1,200 mg PO BID [facility] Last Admin: 06/17/18 22:25 Dose: 1,200 mg Hydrocortisone (Hytone) 1 applic TOPICAL BID [facility] Last Admin: 06/17/18 22:23 Dose: Not Given Latanoprost (Xalatan Opthalmic) 1 drop EACH EYE QHS [facility] Last Admin: 06/17/18 22:24 Dose: 1 drop Magnesium Hydroxide (Milk Of Magnesia) 30 ml PO DAILY PRN PRN PRN Reason: Constipation Melatonin (Melatonin) 10 mg PO QHS [facility] Last Admin: 06/17/18 22:26 Dose: 10 mg Methadone HCl () 10 mg PO TID [facility] Last Admin: 06/18/18 05:49 Dose: 10 mg Methylprednisolone (Solu-Medrol) 40 mg IV Q8 [facility] Last Admin: 06/18/18 05:49 Dose: 40 mg Metoprolol Tartrate (Lopressor (Beta Maci)) 25 mg PO BID [facility] Last Admin: 06/17/18 22:26 Dose: 25 mg Mirtazapine (Remeron) 15 mg PO QHS [facility] Last Admin: 06/17/18 22:26 Dose: 15 mg Nicotine (Nicoderm Cq (Pbkc)) 21 mg TRANSDERM. DAILY [facility] Last Admin: 06/17/18 10:29 Dose: 21 mg Ondansetron HCl (Zofran) 4 mg IV Q8H PRN PRN PRN Reason: Nausea Oxcarbazepine (Trileptal) 600 mg PO BID [facility] Last Admin: 06/17/18 22:25 Dose: 600 mg Phenobarbital (Phenobarbital) 32.4 mg PO BID [facility] Last Admin: 06/17/18 22:26 Dose: 32.4 mg Phenytoin Sodium (Dilantin) 100 mg PO TIDCM [facility] Last Admin: 06/17/18 16:01 Dose: 100 mg Potassium Chloride (K-Dur) [facility]q [facility] Last Admin: 06/17/18 08:09 Dose: 10 meq Pramipexole Dihydrochloride (Mirapex) 1 mg PO DAILY@2200 [facility] Last Admin: 06/17/18 22:25 Dose: 1 mg Pravastatin Sodium (Pravachol) 40 mg PO QHS [facility] Last Admin: 06/17/18 22:26 Dose: 40 mg Risperidone (Risperdal) 0.25 mg PO DAILY [facility] Last Admin: 06/17/18 10:30 Dose: 0.25 mg Senna/Docusate Sodium (Senokot-S, Clotilde-Colace) 1 tablet PO BID [facility] Last Admin: 06/17/18 22:25 Dose: 1 tablet Sodium Chloride () 5 - 15 ml IV UD PRN PRN Reason: SALINE FLUSH Last Admin: 06/18/18 05:49 Dose: 10 ml Temazepam (Restoril) 30 mg PO QHS [facility] Last Admin: 06/17/18 22:26 Dose: 30 mg Tolterodine Tartrate (Detrol La) 4 mg PO DAILY [facility] Last Admin: 06/17/18 10:29 Dose: 4 mg Medical Necessity - Tobacco Use Smoking Status: Current every day smoker Assessment/Plan All Active Problems (Last Reviewed 06/13/18 @ 22:00 by Yunior Heaton MD) UTI (urinary tract infection) (Acute) Severe sepsis (Acute) Hypoxemia (Acute) Suicidal ideation (Acute) COPD with exacerbation (Acute) Severe sepsis (Acute) Community acquired pneumonia (Acute) SIRS (systemic inflammatory response syndrome) (Acute) Viral illness (Acute) History of right hip replacement (Acute) Broken ankle (Acute) S/P laparoscopic cholecystectomy (Acute) S/P appendectomy (Acute) Acidosis (Acute) Acute and chronic respiratory failure with hypoxia (Acute) Nicotine abuse (Acute) Acute respiratory failure with hypercapnia (Acute) Acute respiratory failure with hypoxia and hypercapnia (Acute) Acute exacerbation of chronic obstructive airways disease (Acute) Hypokalemia (Acute) Subtherapeutic serum dilantin level (Acute) Subtherapeutic phenobarb level (Acute) Fever (Acute) Fracture of left great toe (Resolved) Frequent falls (Resolved) 1. RSV B URI/COPD exacerbation -Respiratory panel returns with RSVP positive, so far cultures are negative and chest x-ray was unremarkable for consolidation -Continue with her duo nebs, solumedrol TID and continue with the budesonide aerosol -Legionella and strep antigen were negative -Sepsis ruled out 2. Suicidal ideation/depression -She states today she has depression that comes and goes periodically. -Mentioned in the ER that she had a preparing box tender and knows how to use it which was interpreted as suicidal ideation -Crisis will evaluate the patient when she is medically cleared which will likely be tomorrow if everything continues to progress. -Continue with Remeron, risperidone, temazepam 3. Glaucoma -Stable -Continue with eyedrops 4. Seizure disorder/restless legs -Stable currently -Continue with Requip, phenobarbital, Dilantin, Trileptal -Phenytoin level was slightly elevated to 21.1, normal is 10-20. -We will back off of the dosing for the Dilantin and monitor levels, repeat was 16.1 5. Hypertension/hyperlipidemia -Stable -Continue with metoprolol and pravastatin 6. GERD -Stable -Continue with Zantac 7. Osteoporosis -On a bisphosphonate -Can continue if she is here on the day of the week she takes it DVT: Lovenox Code Visit Inpatient E&M: 15631 Subs Hosp L2
[2018-06-18] MEDS: Budesonide Respules 0.5 MG/2 ML AMPUL.NEB. INHALATION ×2 (07:32→19:09)
[2018-06-18] MEDS: Enoxaparin 40 MG/0.4 ML Syringe SC (09:04)
[2018-06-18] MEDS: Acetaminophen 325 MG Tablet 650 MG PO (09:04)
[2018-06-18] MEDS: BENZOCAINE/MENTHOL 1 LOZENGE 2 LOZENGE MUCOUS MEM ×3 (09:04→21:18)
[2018-06-18] MEDS: Phenytoin Na 100 MG Capsule PO ×3 (09:05→17:51)
[2018-06-18] MEDS: Aspirin 81 MG TAB.CHEW PO (09:05)
[2018-06-18] MEDS: Tolterodine Tartrate 4 MG CAP.SA PO (09:06)
[2018-06-18] MEDS: guaiFENesin 1,200 MG Tablet 1200 MG PO ×2 (09:06→21:16)
[2018-06-18] MEDS: Gabapentin 300 MG Capsule PO ×4 (09:06→21:15)
[2018-06-18] MEDS: RisperiDONE 0.25 MG Tablet PO (09:06)
[2018-06-18] MEDS: Senna/Docusate Sodium 1 Tablet PO ×2 (09:06→21:15)
[2018-06-18] MEDS: Benzonatate 100 MG Capsule PO ×2 (09:06→14:12)
[2018-06-18] MEDS: Famotidine 20 MG Tablet 40 MG PO (09:06)
[2018-06-18] MEDS: OXcarbazepine 600 MG Tablet PO ×2 (09:06→21:15)
[2018-06-18] MEDS: Metoprolol Tartrate 25 MG Tablet PO ×2 (09:06→21:15)
[2018-06-18] MEDS: Etodolac 200 MG Capsule 400 MG PO ×2 (09:06→17:51)
[2018-06-18] MEDS: Phenobarbital 32.4 MG Tablet PO ×2 (09:14→21:15)
[2018-06-18] MEDS: Pravastatin 40 MG Tablet PO (21:15)
[2018-06-18] MEDS: Pramipexole Di-HCl 1 MG Tablet PO (21:15)
[2018-06-18] MEDS: MELATONIN 10 MG TABLET PO (21:15)
[2018-06-18] MEDS: Temazepam 15 MG Capsule 30 MG PO (21:15)
[2018-06-18] MEDS: Mirtazapine 15 MG Tablet PO (21:16)
[2018-06-18] MEDS: Latanoprost 0.005% 1 Bottle 1 DRP EACH EYE (21:16)
[2018-06-19] VITALS (22 sets, daily range): BP systolic 106–124; BP diastolic 50–75; PULSE 72–89; RESP 12–22; TEMP 35.9–36.7; O2SAT 91–99
[2018-06-19] MEDS: Ipratropium/Albuterol Sulfate 3 ML AMPUL.NEB INHALATION ×6 (02:49→23:32)
[2018-06-19] MEDS: Methadone 10 MG Tablet PO ×3 (06:42→22:41)
[2018-06-19] MEDS: 0.9% NaCl Peripheral Flush Adult/Peds IV ×3 (06:42→22:48)
[2018-06-19] MEDS: Budesonide Respules 0.5 MG/2 ML AMPUL.NEB. INHALATION ×2 (07:24→19:33)
[2018-06-19] MEDS: Etodolac 200 MG Capsule 400 MG PO ×2 (08:50→17:35)
[2018-06-19] MEDS: Phenytoin Na 100 MG Capsule PO ×3 (08:50→17:35)
[2018-06-19] MEDS: Gabapentin 300 MG Capsule PO ×4 (08:50→22:41)
[2018-06-19] MEDS: Aspirin 81 MG TAB.CHEW PO (08:50)
[2018-06-19] MEDS: Enoxaparin 40 MG/0.4 ML Syringe SC (10:16)
[2018-06-19] MEDS: Metoprolol Tartrate 25 MG Tablet PO ×2 (10:17→22:40)
[2018-06-19] MEDS: Phenobarbital 32.4 MG Tablet PO ×2 (10:17→22:41)
[2018-06-19] MEDS: RisperiDONE 0.25 MG Tablet PO (10:17)
[2018-06-19] MEDS: Tolterodine Tartrate 4 MG CAP.SA PO (10:17)
[2018-06-19] MEDS: guaiFENesin 1,200 MG Tablet 1200 MG PO ×2 (10:17→22:40)
[2018-06-19] MEDS: Famotidine 20 MG Tablet 40 MG PO (10:17)
[2018-06-19] MEDS: Senna/Docusate Sodium 1 Tablet PO ×2 (10:17→22:41)
[2018-06-19] MEDS: OXcarbazepine 600 MG Tablet PO ×2 (10:17→22:41)
--- NOTE | 2018-06-19 10:22 | CASEMGMT ---
Addendum entered by Lina Fairchild 06/19/18 11:11: SW received a message from Robel at [facility], she will be here to see pt this afternoon. CRISTIANO Moreira, DEBBIE Original Note: Addendum entered by Lina Fairchild 06/19/18 11:03: GRAHAM spoke w/Dariusz at [facility], he states Robel will come see pt after she is done with another patient. GRAHAM let extension service specialist in charge know. CRISTIANO Moreira, DEBBIE Original Note: As per physician, pt is ready for discharge. GRAHAM called crisis at [facility], spoke to Dariusz, and asked for someone to come see pt today as she is medically cleared. He states someone will call this SW back as to when someone can come to see pt. CRISTIANO Moreira, DEBBIE
[2018-06-19] MEDS: BENZOCAINE/MENTHOL 1 LOZENGE 2 LOZENGE MUCOUS MEM ×2 (10:24→22:40)
--- NOTE | 2018-06-19 13:12 | NURSING ---
Crisis here to evaluate suicidal ideation. Per crisis, patient not suicidal at this time. Sitter removed from room.
--- NOTE | 2018-06-19 13:44 | CASEMGMT ---
Pt was cleared by crisis. Pt told RN she wanted to go to a [facility]. Pt is needing minimum assist X 2 at present. SW met w/pt and son in room in regard to discharge plan. Pt states that she thinks she can manage at home with her rollator walker, is declining mcc placement at this time. SW explained to pt that as per PT, it was taking two people to get her up--she still thinks she will be able to do it at home with her rollator. She states her bed is easier to get out of also. Pt's son states that she has a bedside commode as well if needed. Pt confirms has aide services 3 hours/day, 5 days per week, and her aide will come to see her tomorrow. SW asked pt if she would like PT/OT at home, pt agreeable to this, has no preference for agency. SW explained will make a referral to [facility]. SW spoke w/YOSHI Edward. She made a referral to [facility], they can take pt. GRAHAM called Beata Aparicio, pt's casework specialist, was not available. GRAHAM spoke w/covering casework specialist Diego Rider, let him know pt is going home today. He will notify pt's providers. No further needs, pt home today w/[facility] and aide services through [employer]. CRISTIANO Moreira, FINANCIAL ANALYSIS ADVISOR
--- NOTE | 2018-06-19 14:11 | DCINST_ITS ---
- Discharge Diagnoses Current Active Problems: Current Active and Chronic Problems (Last Reviewed 06/13/18 @ 22:00 by Yunior Heaton MD) Severe sepsis (Acute) Hypoxemia (Acute) Suicidal ideation (Acute) COPD with exacerbation (Acute) Severe sepsis (Acute) Community acquired pneumonia (Acute) COPD (chronic obstructive pulmonary disease) (Chronic) 1 ppd now smoker 4 ppd You will use the following diet at home:: Cardiac Your food should be the consistency of: Regular Your liquids should be the consistency of: Regular/Thin Discharge Activity: Return to Normal Activity Weight Bearing Status: Weight bearing as tolerated Call your doctor if you observe: Fever of 101 or Higher, Shortness of breath, Increased palpitations (irregular heartbeat), - - worsening cough Instructions: RSV (Respiratory Syncytial Virus) Allergies/Adverse Reactions: Allergies Penicillins Allergy (Verified 03/19/18 20:21) Anaphylaxis codeine Adverse Reaction (Verified 03/19/18 20:21) Nausea Medications to take at Discharge Albuterol Aerosols [Ventolin Aerosols] 2.5 mg INHALATION Q6H PRN 05/12/16 Alendronate Sodium [Fosamax] 70 mg PO FR 05/12/16 Etodolac 400 mg PO BID 05/12/16 Fluticasone/Salmeterol [Advair 250/50 Mcg Diskus] 2 puff INHALATION BID 05/12/16 Gabapentin [Neurontin] 300 mg PO 4X/DAY 05/12/16 Temazepam [Restoril] 30 mg PO QHS 06/24/17 Mirtazapine [Remeron] 15 mg PO QHS 07/03/17 Latanoprost 0.005% [Xalatan Opthalmic] 1 drp EACH EYE QHS 07/04/17 Methadone HCl 10 mg PO TID 09/04/17 Ergocalciferol [Vitamin D] 50,000 units PO MO 11/07/17 Phenobarbital 32.4 mg PO BID 11/07/17 Potassium Chloride [K-Dur] 10 meq PO DAILY 11/07/17 Pravastatin [Pravachol] 40 mg PO QHS 11/07/17 Acetaminophen [Tylenol Tablet] 650 mg PO Q6H PRN PRN tablet 03/07/18 Aspirin [Aspirin, Baby] 81 mg PO DAILY@0800 tab.chew 03/07/18 Metoprolol Tartrate 25 mg PO BID #60 tab 03/07/18 Ipratropium/Albuterol Sulfate [Duoneb] 3 ml INHALATION BID 04/03/18 Sennosides/Docusate Sodium [Senna-Docusate Sodium Tablet] 2 each PO BID 04/03/18 Clotrimazole 1 applic TOPICAL DAILY 06/13/18 Hydrocortisone 1% Crm 1 applic TOPICAL BID 06/13/18 Melatonin 10 mg PO QHS 06/13/18 Oxcarbazepine [Trileptal] 600 mg PO BID 06/13/18 Phenytoin Sodium Extended [Dilantin] 100 mg PO 4X/DAY 06/13/18 Ranitidine HCl [Zantac] 300 mg PO DAILY 06/13/18 Risperidone 0.25 mg PO DAILY 06/13/18 Ropinirole HCl [Requip] 2 mg PO DAILY 06/13/18 Tolterodine Tartrate [Detrol LA] 4 mg PO DAILY 06/13/18 Prednisone 40 mg PO DAILY 5 Days #10 tablet 06/19/18 The following prescriptions were given: Prednisone 40 mg PO DAILY 5 Days #10 tablet Primary Care Physician: Patel Veliz Chi, MD [Primary Care Provider] - Please follow up with your Primary Care Physician in: one week Test Results: Test results from this visit will be discussed in further detail at your follow- up appointment, if applicable. Proposed Discharge Date: 06/19/18 - with home health care
--- NOTE | 2018-06-19 14:12 | PCM.DC.SUM ---
Discharge Date and Diagnosis - Problem List Patient Problems: Active and Suspected Problems (Last Reviewed 06/13/18 @ 22:00 by Yunior Heaton MD) Severe sepsis (Acute) Hypoxemia (Acute) Suicidal ideation (Acute) COPD with exacerbation (Acute) Severe sepsis (Acute) Community acquired pneumonia (Acute) Date of Admission: 06/13/18 - Primary Discharge Diagnosis Active and Suspected Problems (Last Reviewed 06/13/18 @ 22:00 by Yunior Heaton MD) Severe sepsis (Acute) Hypoxemia (Acute) Suicidal ideation (Acute) COPD with exacerbation (Acute) Severe sepsis (Acute) Community acquired pneumonia (Acute) - Secondary Discharge Diagnosis Chronic Problems (Last Reviewed 06/13/18 @ 22:00 by Yunior Heaton MD) Tobacco use (Chronic) Generalized weakness (Chronic) Debility (Chronic) Depression (Chronic) Insomnia (Chronic) She takes Temazepam every night for sleep, prescribed by Dr. Veliz Hypertension (Chronic) Physical debility (Chronic) Degenerative disc disease, lumbar (Chronic) Pain, chronic (Chronic) Seizure disorder (Chronic) Restless leg syndrome (Chronic) COPD (chronic obstructive pulmonary disease) (Chronic) 1 ppd now smoker 4 ppd Obstructive sleep apnea (Chronic) non-compliant with CPAP but has oxygen to wear at night Smokes with greater than 40 pack year history (Chronic) Hospital Course and Treatment Consultations 06/13/18 21:07 Consult: Mental Health/Crisis Routine Reason for consult?: Suicial Notified answering service Date Notified:: 06/13/18 Time notified:: 21:08 Operations: None Summary of Care Provided: The patient is a 67 year old F [] Patient Problems: Active and Suspected Problems (Last Reviewed 06/13/18 @ 22:00 by Yunior Heaton MD) Severe sepsis (Acute) Hypoxemia (Acute) Suicidal ideation (Acute) COPD with exacerbation (Acute) Severe sepsis (Acute) Community acquired pneumonia (Acute) - Physical Exam Vital Signs Temp Pulse Resp BP Pulse Ox 97.6 F L 86 16 108/73 94 06/19/18 08:48 06/19/18 11:02 06/19/18 11:02 06/19/18 08:48 06/19/18 08:48 Oxygen Flow Rate (L/min) 2.5 Oxygen Delivery Method Room Air Weight: 157 lb 12.804 oz Body Mass Index (BMI) 26.2 Intake and Output for Last 24 Hours 06/17/18 06/18/18 06/19/18 23:59 23:59 23:59 Intake Total 2150 / 2150 1650 / 1650 550 / 550 Output Total 100 / 100 100 / 100 Balance 2149 / 2149 1550 / 1550 450 / 450 Microbiology Past 72 Hours 06/13/18 18:24 Blood Culture - Final Blood Culture (Wb) - Anticubital Left No growth in 5 days. 06/13/18 18:12 Blood Culture - Final Blood Culture (Wb) - Anticubital Right No growth in 5 days. Discharge Activity: Return to Normal Activity Weight Bearing Status: Weight bearing as tolerated Call your doctor if you observe: Fever of 101 or Higher, Shortness of breath, Increased palpitations (irregular heartbeat), - - worsening cough Home Medications: Medications to take at Discharge Albuterol Aerosols [Ventolin Aerosols] 2.5 mg INHALATION Q6H PRN 05/12/16 Alendronate Sodium [Fosamax] 70 mg PO FR 05/12/16 Etodolac 400 mg PO BID 05/12/16 Fluticasone/Salmeterol [Advair 250/50 Mcg Diskus] 2 puff INHALATION BID 05/12/16 Gabapentin [Neurontin] 300 mg PO 4X/DAY 05/12/16 Temazepam [Restoril] 30 mg PO QHS 06/24/17 Mirtazapine [Remeron] 15 mg PO QHS 07/03/17 Latanoprost 0.005% [Xalatan Opthalmic] 1 drp EACH EYE QHS 07/04/17 Methadone HCl 10 mg PO TID 09/04/17 Ergocalciferol [Vitamin D] 50,000 units PO MO 11/07/17 Phenobarbital 32.4 mg PO BID 11/07/17 Potassium Chloride [K-Dur] 10 meq PO DAILY 11/07/17 Pravastatin [Pravachol] 40 mg PO QHS 11/07/17 Acetaminophen [Tylenol Tablet] 650 mg PO Q6H PRN PRN tablet 03/07/18 Aspirin [Aspirin, Baby] 81 mg PO DAILY@0800 tab.chew 03/07/18 Metoprolol Tartrate 25 mg PO BID #60 tab 03/07/18 Ipratropium/Albuterol Sulfate [Duoneb] 3 ml INHALATION BID 04/03/18 Sennosides/Docusate Sodium [Senna-Docusate Sodium Tablet] 2 each PO BID 04/03/18 Clotrimazole 1 applic TOPICAL DAILY 06/13/18 Hydrocortisone 1% Crm 1 applic TOPICAL BID 06/13/18 Melatonin 10 mg PO QHS 06/13/18 Oxcarbazepine [Trileptal] 600 mg PO BID 06/13/18 Phenytoin Sodium Extended [Dilantin] 100 mg PO 4X/DAY 06/13/18 Ranitidine HCl [Zantac] 300 mg PO DAILY 06/13/18 Risperidone 0.25 mg PO DAILY 06/13/18 Ropinirole HCl [Requip] 2 mg PO DAILY 06/13/18 Tolterodine Tartrate [Detrol LA] 4 mg PO DAILY 06/13/18 Prednisone 40 mg PO DAILY 5 Days #10 tablet 06/19/18 Following Prescrptions Were Given to Patient: Prednisone 40 mg PO DAILY 5 Days #10 tablet Primary Care Physician: Patel Veliz Chi, MD [Primary Care Provider] - Please follow up with your Primary Care Physician in: one week Patient Instructions: RSV (Respiratory Syncytial Virus) Medical Necessity - Tobacco Use Smoking Status: Current every day smoker
--- NOTE | 2018-06-19 14:55 | CASEMGMT ---
Addendum entered by Lina Fairchild 06/19/18 16:39: [facility] can take pt and is starting precert. SW let pt know. CRISTIANO Moreira, TIRE SORTER Original Note: Son asked to speak w/SW. Son let this SW know that now pt is worried about how she will manage at home, and that she now would like to consider SNF. SW walked in the room, pt tearful. SW explained we can [facility] a referral to [facility] and see if insurance will approve. Son states pt has been to [facility] and Ronnie pt agreeable to referral to [facility]. SW called [facility], referral faxed. SW called [facility], let Diego Rider know pt is not going home now, likely to [facility]. CM called [facility] and let them know pt is now going to SNF. SW will continue to follow, did let pt and son know that we will need to wait for precert so it is anticipated pt will be here until Tuesday. SW let pt know that it is likely [facility] will take her and will work on precert. Physician notified as well. SW will continue to follow. CRISTIANO Moreira, TIRE SORTER
--- NOTE | 2018-06-19 15:16 | PCM.PN.HOSP ---
Patient Problems: Active and Suspected Problems (Last Reviewed 06/13/18 @ 22:00 by Yunior Heaton MD) Severe sepsis (Acute) Hypoxemia (Acute) Suicidal ideation (Acute) COPD with exacerbation (Acute) Severe sepsis (Acute) Community acquired pneumonia (Acute) Subjective: Patient seen and examined. He was admitted with a complaint of fever and worsening shortness of breath. She was found to have RSV infection. Patient also complained of suicidal ideation at time of admission and had had a recent psychiatric admission. 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 She was admitted and managed initially for severe sepsis due to pneumonia. She was started on IV ceftriaxone and azithromycin. She was also managed for hypokalemia and COPD exacerbation as well as suicidal ideation. Symptoms subsequently resolved and cultures were negative. Respiratory panel was positive for RSV infection and therefore sepsis was ruled out. Patient remained stable and was titrated back to baseline 2-3 L of oxygen. She was evaluated by crisis on 06/19/2018 and cleared by them. Patient stated that she wanted to go home and so a discharge order was put in. However patient subsequently changed her mind after his son spoke to her and said she wanted to go to a [facility]pc as she did not think she could take care of herself alone at home. Patient seen and examined she has no complaints. He denies any fever chills, cough or shortness of breath, any abdominal pain, any diarrhea vomiting. Review of systems otherwise negative. Labs and vitals reviewed. Vitals/I&O's: Vital Signs Temp Pulse Resp BP Pulse Ox 97.6 F L 86 16 108/73 94 06/19/18 08:48 06/19/18 11:02 06/19/18 11:02 06/19/18 08:48 06/19/18 14:20 Oxygen Flow Rate (L/min) 2.5 Oxygen Delivery Method Room Air Weight: 157 lb 12.804 oz Body Mass Index (BMI) 26.2 Intake and Output for Last 24 Hours 06/17/18 06/18/18 06/19/18 23:59 23:59 23:59 Intake Total 2150 / 2150 1650 / 1650 550 / 550 Output Total 100 / 100 100 / 100 Balance 2149 / 2149 1550 / 1550 450 / 450 General: Alert, Oriented x3, Cooperative, No apparent distress HEENT: Atraumatic, PERRLA, EOMI, Normocephalic Oral: Moist Mucosa Neck: Supple, No JVD, Negative Carotid Bruits, Negative Hepatojugular Reflux, No Nodes, No Nuchal Rigidity Lungs: Clear to auscultation, Normal air movement, No rhonchi, No wheeze, No rales, - - on 2L of oxygen Cardiovascular: Regular rate, Regular Rhythm, Normal S1, Normal S2, No murmurs Abdomen: Bowel Sounds Present, Soft, Non Tender, Non-Distended, No Hepato-splenomegaly Extremities: No clubbing, No cyanosis, No edema, Capillary Refill Less than 3 Seconds Skin: No rashes, No breakdown Musculoskeletal: No Tenderness to Palpation of Joints or Extremities Lymphatic: No Cervical, Supraclavicular, or Inguinal Adenopathy Neurological: Cranial nerves II-XII grossly intact Psych/Mental Status: Normal Affect, Appropriate, Alert and oriented to time, place, person, mood and affect Microbiology Past 72 Hours 06/13/18 18:24 Blood Culture (Wb) - Anticubital Left Blood Culture - Final No growth in 5 days. 06/13/18 18:12 Blood Culture (Wb) - Anticubital Right Blood Culture - Final No growth in 5 days. Current Medications Acetaminophen (Tylenol) 650 mg PO Q4H PRN PRN PRN Reason: FEVER Last Admin: 06/18/18 09:04 Dose: 650 mg Albuterol Sulfate (Ventolin Aerosols) 2.5 mg INHALATION Q2H PRN PRN PRN Reason: SHORTNESS OF BREATH Albuterol/Ipratropium (Duoneb) 3 ml INHALATION Q4H.RT [facility] Last Admin: 06/19/18 15:00 Dose: 3 ml Alendronate Sodium (Fosamax) 70 mg PO Fr@0600 [facility] Last Admin: 06/16/18 05:36 Dose: 70 mg Aspirin (Aspirin, Baby) 81 mg PO DAILY@0800 [facility] Last Admin: 06/19/18 08:50 Dose: 81 mg Benzonatate (Tessalon Perle) 100 mg PO TID PRN PRN PRN Reason: COUGH Last Admin: 06/18/18 14:12 Dose: 100 mg Bisacodyl (Dulcolax) 5 mg PO DAILY PRN PRN PRN Reason: Constipation Budesonide (Pulmicort Aerosol) 0.5 mg INHALATION Q12H.RT [facility] Last Admin: 06/19/18 07:24 Dose: 0.5 mg Enoxaparin Sodium (Lovenox) 40 mg SC DAILY@1000 [facility] Last Admin: 06/19/18 10:16 Dose: 40 mg Ergocalciferol (Vitamin D) 50,000 unit PO MO [facility] Last Admin: 06/19/18 10:17 Dose: 50,000 unit Etodolac (Lodine) 400 mg PO BIDCM [facility] Last Admin: 06/19/18 08:50 Dose: 400 mg Famotidine (Pepcid) 40 mg PO DAILY [facility] Last Admin: 06/19/18 10:17 Dose: 40 mg [facility] ([facility]in) [facility] Last Admin: 06/19/18 11:44 Dose: 300 mg Guaifenesin (Mucinex) 1,200 mg PO BID [facility] Last Admin: 06/19/18 10:17 Dose: 1,200 mg Hydrocortisone (Hytone) 1 applic TOPICAL BID [facility] Last Admin: 06/19/18 10:18 Dose: Not Given Latanoprost (Xalatan Opthalmic) 1 drop EACH EYE QHS [facility] Last Admin: 06/18/18 21:16 Dose: 1 drop Magnesium Hydroxide (Milk Of Magnesia) 30 ml PO DAILY PRN PRN PRN Reason: Constipation Melatonin (Melatonin) 10 mg PO QHS [facility] Last Admin: 06/18/18 21:15 Dose: 10 mg Methadone HCl () 10 mg PO TID [facility] Last Admin: 06/19/18 14:26 Dose: 10 mg Methylprednisolone (Solu-Medrol) 40 mg IV Q8 [facility] Last Admin: 06/19/18 14:26 Dose: 40 mg Metoprolol Tartrate (Lopressor (Beta Maci)) 25 mg PO BID [facility] Last Admin: 06/19/18 10:17 Dose: 25 mg Mirtazapine (Remeron) 15 mg PO QHS [facility] Last Admin: 06/18/18 21:16 Dose: 15 mg Nicotine (Nicoderm Cq (Pbkc)) 21 mg TRANSDERM. DAILY [facility] Last Admin: 06/19/18 10:17 Dose: 21 mg Ondansetron HCl (Zofran) 4 mg IV Q8H PRN PRN PRN Reason: Nausea Oxcarbazepine (Trileptal) 600 mg PO BID [facility] Last Admin: 06/19/18 10:17 Dose: 600 mg Phenobarbital (Phenobarbital) 32.4 mg PO BID [facility] Last Admin: 06/19/18 10:17 Dose: 32.4 mg Phenytoin Sodium (Dilantin) 100 mg PO TIDCM [facility] Last Admin: 06/19/18 11:44 Dose: 100 mg Potassium Chloride (K-Dur) 10 meq PO DAILYCM [facility] Last Admin: 06/19/18 08:50 Dose: 10 meq Pramipexole Dihydrochloride (Mirapex) 1 mg PO DAILY@2200 [facility] Last Admin: 06/18/18 21:15 Dose: 1 mg Pravastatin Sodium (Pravachol) 40 mg PO QHS [facility] Last Admin: 06/18/18 21:15 Dose: 40 mg Risperidone (Risperdal) 0.25 mg PO DAILY [facility] Last Admin: 06/19/18 10:17 Dose: 0.25 mg Senna/Docusate Sodium (Senokot-S, Clotilde-Colace) 1 tablet PO BID [facility] Last Admin: 06/19/18 10:17 Dose: 1 tablet Sodium Chloride () 5 - 15 ml IV UD PRN PRN Reason: SALINE FLUSH Last Admin: 06/19/18 14:26 Dose: 10 ml Temazepam (Restoril) 30 mg PO QHS [facility] Last Admin: 06/18/18 21:15 Dose: 30 mg Throat Lozenges (Cepacol Sore Throat Lozenge) 2 lozenge MUCOUS MEM Q2H PRN PRN PRN Reason: COUGH Last Admin: 06/19/18 10:24 Dose: 2 lozenge Tolterodine Tartrate (Detrol La) 4 mg PO DAILY [facility] Last Admin: 06/19/18 10:17 Dose: 4 mg Medical Necessity - Tobacco Use Smoking Status: Current every day smoker Assessment/Plan All Active Problems (Last Reviewed 06/13/18 @ 22:00 by Yunior Heaton MD) UTI (urinary tract infection) (Acute) Severe sepsis (Acute) Hypoxemia (Acute) Suicidal ideation (Acute) COPD with exacerbation (Acute) Severe sepsis (Acute) Community acquired pneumonia (Acute) SIRS (systemic inflammatory response syndrome) (Acute) Viral illness (Acute) History of right hip replacement (Acute) Broken ankle (Acute) S/P laparoscopic cholecystectomy (Acute) S/P appendectomy (Acute) Acidosis (Acute) Acute and chronic respiratory failure with hypoxia (Acute) Nicotine abuse (Acute) Acute respiratory failure with hypercapnia (Acute) Acute respiratory failure with hypoxia and hypercapnia (Acute) Acute exacerbation of chronic obstructive airways disease (Acute) Hypokalemia (Acute) Subtherapeutic serum dilantin level (Acute) Subtherapeutic phenobarb level (Acute) Fever (Acute) Fracture of left great toe (Resolved) Frequent falls (Resolved) 1. URTI due to RSV infection resolving. Has no complaints. SOB has resolved on duonebs; will switch solumedrol to PO prednisone 2. COPD exacerbation due to URTI as under 1. 3. Suicidal ideation and depression evaluated by [facility] today, and she was cleared by them continue risperidone, temazepam and remeron 4. Seizure disorder: on phenobarbital, dilantin and Trileptal. Phenytoin level was slightly elevated at 21.4 with upper limit being 20. Repeat level of the dose was decreased was 16.1. Will continue to monitor. 5. Restless leg sydrome: on Requip 6. Hypertension and hyperlipidemia: on metoprolol and pravastatin 7. Cirrhosis: On bisphosphonates 8. GERD: Stable. On Zantac 9. Glaucoma: Stable. Continue eyedrops. DVT prophylaxis: lovenox Patient: Awaiting placement Code Visit Inpatient E&M: 50262 Subs Hosp L2
--- NOTE | 2018-06-19 15:24 | PN_ITS ---
Patient Problems: Active and Suspected Problems (Last Reviewed 06/13/18 @ 22:00 by Yunior Heaton MD) Severe sepsis (Acute) Hypoxemia (Acute) Suicidal ideation (Acute) COPD with exacerbation (Acute) Severe sepsis (Acute) Community acquired pneumonia (Acute) Subjective: Patient seen and examined. He was admitted with a complaint of fever and worsening shortness of breath. She was found to have RSV infection. Patient also complained of suicidal ideation at time of admission and had had a recent psychiatric admission. 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 She was admitted and managed initially for severe sepsis due to pneumonia. She was started on IV ceftriaxone and azithromycin. She was also managed for hypokalemia and COPD exacerbation as well as suicidal ideation. Symptoms subsequently resolved and cultures were negative. Respiratory panel was positive for RSV infection and therefore sepsis was ruled out. Patient remained stable and was titrated back to baseline 2-3 L of oxygen. She was evaluated by crisis on 06/19/2018 and cleared by them. Patient stated that she wanted to go home and so a discharge order was put in. However patient subsequently changed her mind after his son spoke to her and said she [facility] a [facility] as she did not think she could take care of herself alone at home. Patient seen and examined she has no complaints. He denies any fever chills, cough or shortness of breath, any abdominal pain, any diarrhea vomiting. Review of systems otherwise negative. Labs and vitals reviewed. Vitals/I&O's: Vital Signs Temp Pulse Resp BP Pulse Ox 97.6 F L 86 16 108/73 94 06/19/18 08:48 06/19/18 11:02 06/19/18 11:02 06/19/18 08:48 06/19/18 14:20 Oxygen Flow Rate (L/min) 2.5 Oxygen Delivery Method Room Air Weight: 157 lb 12.804 oz Body Mass Index (BMI) 26.2 Intake and Output for Last 24 Hours 06/17/18 06/18/18 06/19/18 23:59 23:59 23:59 Intake Total 2150 / 2150 1650 / 1650 550 / 550 Output Total 100 / 100 100 / 100 Balance 2149 / 2149 1550 / 1550 450 / 450 General: Alert, Oriented x3, Cooperative, No apparent distress HEENT: Atraumatic, PERRLA, EOMI, Normocephalic Oral: Moist Mucosa Neck: Supple, No JVD, Negative Carotid Bruits, Negative Hepatojugular Reflux, No Nodes, No Nuchal Rigidity Lungs: Clear to auscultation, Normal air movement, No rhonchi, No wheeze, No rales, - - on 2L of oxygen Cardiovascular: Regular rate, Regular Rhythm, Normal S1, Normal S2, No murmurs Abdomen: Bowel Sounds Present, Soft, Non Tender, Non-Distended, No Hepato- splenomegaly Extremities: No clubbing, No cyanosis, No edema, Capillary Refill Less than 3 Seconds Skin: No rashes, No breakdown Musculoskeletal: No Tenderness to Palpation of Joints or Extremities Lymphatic: No Cervical, Supraclavicular, or Inguinal Adenopathy Neurological: Cranial nerves II-XII grossly intact Psych/Mental Status: Normal Affect, Appropriate, Alert and oriented to time, place, person, mood and affect Microbiology Past 72 Hours 06/13/18 18:24 Blood Culture (Wb) - Anticubital Left Blood Culture - Final No growth in 5 days. 06/13/18 18:12 Blood Culture (Wb) - Anticubital Right Blood Culture - Final No growth in 5 days. Current Medications Acetaminophen (Tylenol) 650 mg PO Q4H PRN PRN PRN Reason: FEVER Last Admin: 06/18/18 09:04 Dose: 650 mg Albuterol Sulfate (Ventolin Aerosols) 2.5 mg INHALATION Q2H PRN PRN PRN Reason: SHORTNESS OF BREATH Albuterol/Ipratropium (Duoneb) 3 ml INHALATION Q4H.RT [facility] Last Admin: 06/19/18 15:00 Dose: 3 ml Alendronate Sodium (Fosamax) 70 mg PO Fr@0600 [facility] Last Admin: 06/16/18 05:36 Dose: 70 mg Aspirin (Aspirin, Baby) 81 mg PO DAILY@0800 [facility] Last Admin: 06/19/18 08:50 Dose: 81 mg Benzonatate (Tessalon Perle) 100 mg PO TID PRN PRN PRN Reason: COUGH Last Admin: 06/18/18 14:12 Dose: 100 mg Bisacodyl (Dulcolax) 5 mg PO DAILY PRN PRN PRN Reason: Constipation Budesonide (Pulmicort Aerosol) 0.5 mg INHALATION Q12H.RT [facility] Last Admin: 06/19/18 07:24 Dose: 0.5 mg Enoxaparin Sodium (Lovenox) 40 mg SC DAILY@1000 [facility] Last Admin: 06/19/18 10:16 Dose: 40 mg Ergocalciferol (Vitamin D) 50,000 unit PO MO [facility] Last Admin: 06/19/18 10:17 Dose: 50,000 unit Etodolac (Lodine) 400 mg PO BIDCM [facility] Last Admin: 06/19/18 08:50 Dose: 400 mg Famotidine (Pepcid) 40 mg PO DAILY [facility] Last Admin: 06/19/18 10:17 Dose: 40 mg Gabap[facility] ([facility]urontin) [facility] Last Admin: 06/19/18 11:44 Dose: 300 mg Guaifenesin (Mucinex) 1,200 mg PO BID [facility] Last Admin: 06/19/18 10:17 Dose: 1,200 mg Hydrocortisone (Hytone) 1 applic TOPICAL BID [facility] Last Admin: 06/19/18 10:18 Dose: Not Given Latanoprost (Xalatan Opthalmic) 1 drop EACH EYE QHS [facility] Last Admin: 06/18/18 21:16 Dose: 1 drop Magnesium Hydroxide (Milk Of Magnesia) 30 ml PO DAILY PRN PRN PRN Reason: Constipation Melatonin (Melatonin) 10 mg PO QHS [facility] Last Admin: 06/18/18 21:15 Dose: 10 mg Methadone HCl () 10 mg PO TID [facility] Last Admin: 06/19/18 14:26 Dose: 10 mg Methylprednisolone (Solu-Medrol) 40 mg IV Q8 [facility] Last Admin: 06/19/18 14:26 Dose: 40 mg Metoprolol Tartrate (Lopressor (Beta Maci)) 25 mg PO BID [facility] Last Admin: 06/19/18 10:17 Dose: 25 mg Mirtazapine (Remeron) 15 mg PO QHS [facility] Last Admin: 06/18/18 21:16 Dose: 15 mg Nicotine (Nicoderm Cq (Pbkc)) 21 mg TRANSDERM. DAILY [facility] Last Admin: 06/19/18 10:17 Dose: 21 mg Ondansetron HCl (Zofran) 4 mg IV Q8H PRN PRN PRN Reason: Nausea Oxcarbazepine (Trileptal) 600 mg PO BID [facility] Last Admin: 06/19/18 10:17 Dose: 600 mg Phenobarbital (Phenobarbital) 32.4 mg PO BID [facility] Last Admin: 06/19/18 10:17 Dose: 32.4 mg Phenytoin Sodium (Dilantin) 100 mg PO TIDCM [facility] Last Admin: 06/19/18 11:44 Dose: 100 mg Potassium Chloride (K-Dur) 10 meq PO DAILYCM [facility] Last Admin: 06/19/18 08:50 Dose: 10 meq Pramipexole Dihydrochloride (Mirapex) 1 mg PO DAILY@2200 [facility] Last Admin: 06/18/18 21:15 Dose: 1 mg Pravastatin Sodium (Pravachol) 40 mg PO QHS [facility] Last Admin: 06/18/18 21:15 Dose: 40 mg Risperidone (Risperdal) 0.25 mg PO DAILY [facility] Last Admin: 06/19/18 10:17 Dose: 0.25 mg Senna/Docusate Sodium (Senokot-S, Clotilde-Colace) 1 tablet PO BID [facility] Last Admin: 06/19/18 10:17 Dose: 1 tablet Sodium Chloride () 5 - 15 ml IV UD PRN PRN Reason: SALINE FLUSH Last Admin: 06/19/18 14:26 Dose: 10 ml Temazepam (Restoril) 30 mg PO QHS [facility] Last Admin: 06/18/18 21:15 Dose: 30 mg Throat Lozenges (Cepacol Sore Throat Lozenge) 2 lozenge MUCOUS MEM Q2H PRN PRN PRN Reason: COUGH Last Admin: 06/19/18 10:24 Dose: 2 lozenge Tolterodine Tartrate (Detrol La) 4 mg PO DAILY [facility] Last Admin: 06/19/18 10:17 Dose: 4 mg Medical Necessity - Tobacco Use Smoking Status: Current every day smoker Assessment/Plan All Active Problems (Last Reviewed 06/13/18 @ 22:00 by Yunior Heaton MD) UTI (urinary tract infection) (Acute) Severe sepsis (Acute) Hypoxemia (Acute) Suicidal ideation (Acute) COPD with exacerbation (Acute) Severe sepsis (Acute) Community acquired pneumonia (Acute) SIRS (systemic inflammatory response syndrome) (Acute) Viral illness (Acute) History of right hip replacement (Acute) Broken ankle (Acute) S/P laparoscopic cholecystectomy (Acute) S/P appendectomy (Acute) Acidosis (Acute) Acute and chronic respiratory failure with hypoxia (Acute) Nicotine abuse (Acute) Acute respiratory failure with hypercapnia (Acute) Acute respiratory failure with hypoxia and hypercapnia (Acute) Acute exacerbation of chronic obstructive airways disease (Acute) Hypokalemia (Acute) Subtherapeutic serum dilantin level (Acute) Subtherapeutic phenobarb level (Acute) Fever (Acute) Fracture of left great toe (Resolved) Frequent falls (Resolved) 1. URTI due to RSV infection * resolving. Has no complaints. SOB has resolved * on duonebs; will switch solumedrol to PO prednisone * 2. COPD exacerbation due to URTI * as under 1. * 3. Suicidal ideation and depression * evaluated by [facility] today, and she was cleared by them * continue risperidone, temazepam and remeron * 4. Seizure disorder: * on phenobarbital, dilantin and Trileptal. * Phenytoin level was slightly elevated at 21.4 with upper limit being 20. * Repeat level of the dose was decreased was 16.1. * Will continue to monitor. * 5. Restless leg sydrome: on Requip 6. Hypertension and hyperlipidemia: on metoprolol and pravastatin 7. Cirrhosis: On bisphosphonates 8. GERD: Stable. On Zantac 9. Glaucoma: Stable. Continue eyedrops. DVT prophylaxis: lovenox Patient: Awaiting placement Code Visit Inpatient E&M: [id number] [facility] Hosp L2
[2018-06-19] MEDS: Acetaminophen 325 MG Tablet 650 MG PO (17:35)
[2018-06-19] MEDS: Benzonatate 100 MG Capsule PO (22:40)
[2018-06-19] MEDS: MELATONIN 10 MG TABLET PO (22:41)
[2018-06-19] MEDS: Pravastatin 40 MG Tablet PO (22:41)
[2018-06-19] MEDS: Pramipexole Di-HCl 1 MG Tablet PO (22:41)
[2018-06-19] MEDS: Temazepam 15 MG Capsule 30 MG PO (22:41)
[2018-06-19] MEDS: Mirtazapine 15 MG Tablet PO (22:41)
[2018-06-19] MEDS: Latanoprost 0.005% 1 Bottle 1 DRP EACH EYE (22:46)
[2018-06-20] VITALS (19 sets, daily range): BP systolic 110–128; BP diastolic 63–74; PULSE 66–97; RESP 12–20; TEMP 36.5–36.9; O2SAT 95–98
[2018-06-20] MEDS: Ipratropium/Albuterol Sulfate 3 ML AMPUL.NEB INHALATION ×6 (03:15→22:44)
[2018-06-20] MEDS: Methadone 10 MG Tablet PO ×3 (06:57→22:04)
[2018-06-20] MEDS: 0.9% NaCl Peripheral Flush Adult/Peds IV (06:58)
[2018-06-20] MEDS: Budesonide Respules 0.5 MG/2 ML AMPUL.NEB. INHALATION ×2 (07:05→20:23)
[2018-06-20] MEDS: guaiFENesin 1,200 MG Tablet 1200 MG PO ×2 (08:22→22:04)
[2018-06-20] MEDS: OXcarbazepine 600 MG Tablet PO ×2 (08:22→22:12)
[2018-06-20] MEDS: Metoprolol Tartrate 25 MG Tablet PO ×2 (08:22→22:11)
[2018-06-20] MEDS: RisperiDONE 0.25 MG Tablet PO (08:22)
[2018-06-20] MEDS: Phenobarbital 32.4 MG Tablet PO ×2 (08:22→22:04)
[2018-06-20] MEDS: Senna/Docusate Sodium 1 Tablet PO ×2 (08:22→22:04)
[2018-06-20] MEDS: Famotidine 20 MG Tablet 40 MG PO (08:22)
[2018-06-20] MEDS: Gabapentin 300 MG Capsule PO ×4 (08:23→22:04)
[2018-06-20] MEDS: Aspirin 81 MG TAB.CHEW PO (08:23)
[2018-06-20] MEDS: Etodolac 200 MG Capsule 400 MG PO ×2 (08:23→17:54)
[2018-06-20] MEDS: Tolterodine Tartrate 4 MG CAP.SA PO (08:23)
[2018-06-20] MEDS: Phenytoin Na 100 MG Capsule PO ×3 (08:23→17:54)
[2018-06-20] MEDS: Enoxaparin 40 MG/0.4 ML Syringe SC (08:26)
[2018-06-20 10:03] LABS: Absolute Lymphocyte Count 1.01 X10^3/ul (0.83-4.51); Absolute Neutrophil Count 2.6 X10^3/uL (2.0-7.7); Basophil# 0.01 X10^3/uL; Basophil% 0.3 % (0-1); Eosinophil# 0.02 X10^3/uL; Eosinophils% 0.5 % (0-5); Hematocrit 39.5 % (37-47); Hemoglobin 12.9 g/dl (12.0-15.0); Lymphocyte # 1.01 X10^3/ul (4.0); Lymphocyte % 25.3 % (19-41); Mean Corp Hgb Conc 32.7 g/gl (32-36); Mean Corpuscular Volume 91.9 fL (81-99); Mean Platelet Vol. 8.6 fl (6.2-12.0); Monocyte# 0.29 X10^3/uL; Monocyte% 7.3 % (0-10); Neutrophil # 2.62 X10^3/uL (2.7-7.7); Neutrophil % 65.6 % (47-70); POSITIVE COUNT NO; POSITIVE DIFFERENTIAL NO; POSITIVE MORPHOLOGY NO; Platelet Count 174 K/mm3 (150-450); RBC Distribution Width CV 13.8 % (11.6-14.6)
[2018-06-20 10:12] LABS: Anion Gap 9 (5-15); BUN 14 mg/dL (7-18); BUN/Creat Ratio 34.8 RATIO (10-20); Calcium,Total 8.1 mg/dL (8.5-10.1); Chloride 98 mmol/L (98-107); EST Glomerular Filtration Rate 167 mL/min (>60); Est Glom Filt Rate - Afr Amer 203 mL/min (>60); Estimated Creatinine Clearance 48.45 ml/min; Glucose 161 mg/dL (74-106); Potassium 4.1 mmol/L (3.5-5.1); Sodium Level 135 mmol/L (136-145)
--- NOTE | 2018-06-20 11:57 | PN_ITS ---
Patient Problems: Active and Suspected Problems (Last Reviewed 06/13/18 @ 22:00 by Yunior Heaton MD) Severe sepsis (Acute) Hypoxemia (Acute) Suicidal ideation (Acute) COPD with exacerbation (Acute) Severe sepsis (Acute) Community acquired pneumonia (Acute) Subjective: Patient seen and examined. No acute events noted overnight.She denied any fever, any chills, cough or chest pain, any shortness of breath, abdominal pain, any diarrhea vomiting. Patient wants to go to longterm and is awaiting placement. Labs and vitals reviewed. Vitals/I&O's: Vital Signs Temp Pulse Resp BP Pulse Ox 98.2 F 84 20 H 128/68 H 96 06/20/18 08:34 06/20/18 11:41 06/20/18 10:37 06/20/18 08:34 06/20/18 08:34 Oxygen Flow Rate (L/min) 2 Oxygen Delivery Method Nasal Cannula Weight: 157 lb 12.804 oz Body Mass Index (BMI) 26.2 Intake and Output for Last 24 Hours 06/18/18 06/19/18 06/20/18 23:59 23:59 23:59 Intake Total 1650 / 1650 1150 / 1150 580 / 580 Output Total 100 / 100 100 / 100 0 / 0 Balance 1550 / 1550 1050 / 1050 580 / 580 General: Alert, Oriented x3, Cooperative, No apparent distress HEENT: Atraumatic, PERRLA, EOMI, Normocephalic Oral: Moist Mucosa Neck: Supple, No JVD, Negative Carotid Bruits, Negative Hepatojugular Reflux, No Nodes, No Nuchal Rigidity Lungs: Clear to auscultation, Normal air movement, No rhonchi, No wheeze, No rales, - - on 2L of oxygen Cardiovascular: Regular rate, Regular Rhythm, Normal S1, Normal S2, No murmurs Abdomen: Bowel Sounds Present, Soft, Non Tender, Non-Distended, No Hepato- splenomegaly Extremities: No clubbing, No cyanosis, No edema, Capillary Refill Less than 3 Seconds Skin: No rashes, No breakdown Musculoskeletal: No Tenderness to Palpation of Joints or Extremities Lymphatic: No Cervical, Supraclavicular, or Inguinal Adenopathy Neurological: Cranial nerves II-XII grossly intact Psych/Mental Status: Normal Affect, Appropriate, Alert and oriented to time, place, person, mood and affect Microbiology Past 72 Hours 06/13/18 18:24 Blood Culture (Wb) - Anticubital Left Blood Culture - Final No growth in 5 days. 06/13/18 18:12 Blood Culture (Wb) - Anticubital Right Blood Culture - Final No growth in 5 days. Laboratory Results 06/20/18 09:42: WBC 4.0 L, RBC 4.30, Hgb 12.9, Hct 39.5, MCV 91.9, MCH 30.0, MCHC 32.7, RDW 13.8, RDW Differential 46.0 H, Plt Count 174, MPV 8.6, Immature Gran % (Auto) 1.000 H, Neut % (Auto) 65.6, Lymph % (Auto) 25.3, [place] % (Auto) 7.3, Eos % (Auto) 0.5, Baso % (Auto) 0.3, Absolute Neuts (auto) 2.6, Absolute Lymphs (auto) 1.01, Total Counted Not Reportable 06/20/18 09:42: Sodium 135 L, Potassium 4.1, Chloride 98, Carbon Dioxide 28.0, Anion Gap 9, BUN 14, Creatinine 0.40 L, Estim Creat Clear Calc 48.45, Est GFR (MDRD) Af Amer 203, Est GFR (MDRD) Non-Af 167, BUN/Creatinine Ratio 34.8 H, Glucose 161 H, Calcium 8.1 L Current Medications Acetaminophen (Tylenol) 650 mg PO Q4H PRN PRN PRN Reason: FEVER Last Admin: 06/19/18 17:35 Dose: 650 mg Albuterol Sulfate (Ventolin Aerosols) 2.5 mg INHALATION Q2H PRN PRN PRN Reason: SHORTNESS OF BREATH Albuterol/Ipratropium (Duoneb) 3 ml INHALATION Q4H.RT [facility] Last Admin: 06/20/18 10:37 Dose: 3 ml Alendronate Sodium (Fosamax) 70 mg PO Fr@0600 [facility] Last Admin: 06/16/18 05:36 Dose: 70 mg Aspirin (Aspirin, Baby) 81 mg PO DAILY@0800 [facility] Last Admin: 06/20/18 08:23 Dose: 81 mg Benzonatate (Tessalon Perle) 100 mg PO TID PRN PRN PRN Reason: COUGH Last Admin: 06/19/18 22:40 Dose: 100 mg Bisacodyl (Dulcolax) 5 mg PO DAILY PRN PRN PRN Reason: Constipation Budesonide (Pulmicort Aerosol) 0.5 mg INHALATION Q12H.RT [facility] Last Admin: 06/20/18 07:05 Dose: 0.5 mg Enoxaparin Sodium (Lovenox) 40 mg SC DAILY@1000 [facility] Last Admin: 06/20/18 08:26 Dose: 40 mg Ergocalciferol (Vitamin D) 50,000 unit PO MO [facility] Last Admin: 06/19/18 10:17 Dose: 50,000 unit Etodolac (Lodine) 400 mg PO BIDCM [facility] Last Admin: 06/20/18 08:23 Dose: 400 mg Famotidine (Pepcid) 40 mg PO DAILY [facility] Last Admin: 06/20/18 08:22 Dose: 40 mg Gabapentin (Neurontin) 300 mg PO 4X/DAYCM [facility] Last Admin: 06/20/18 11:32 Dose: 300 mg Guaifenesin (Mucinex) 1,200 mg PO BID [facility] Last Admin: 06/20/18 08:22 Dose: 1,200 mg Hydrocortisone (Hytone) 1 applic TOPICAL BID [facility] Last Admin: 06/20/18 08:26 Dose: Not Given Latanoprost (Xalatan Opthalmic) 1 drop EACH EYE QHS [facility] Last Admin: 06/19/18 22:46 Dose: 1 drop Magnesium Hydroxide (Milk Of Magnesia) 30 ml PO DAILY PRN PRN PRN Reason: Constipation Melatonin (Melatonin) 10 mg PO QHS [facility] Last Admin: 06/19/18 22:41 Dose: 10 mg Methadone HCl () 10 mg PO TID [facility] Last Admin: 06/20/18 06:57 Dose: 10 mg Methylprednisolone (Solu-Medrol) 40 mg IV Q8 [facility] Last Admin: 06/20/18 06:58 Dose: 40 mg Metoprolol Tartrate (Lopressor (Beta Maci)) 25 mg PO BID [facility] Last Admin: 06/20/18 08:22 Dose: 25 mg Mirtazapine (Remeron) 15 mg PO QHS [facility] Last Admin: 06/19/18 22:41 Dose: 15 mg Nicotine (Nicoderm Cq (Pbkc)) 21 mg TRANSDERM. DAILY [facility] Last Admin: 06/20/18 08:27 Dose: 21 mg Ondansetron HCl (Zofran) 4 mg IV Q8H PRN PRN PRN Reason: Nausea Oxcarbazepine (Trileptal) 600 mg PO BID [facility] Last Admin: 06/20/18 08:22 Dose: 600 mg Phenobarbital (Phenobarbital) 32.4 mg PO BID [facility] Last Admin: 06/20/18 08:22 Dose: 32.4 mg Phenytoin Sodium (Dilantin) 100 mg PO TIDCM [facility] Last Admin: 06/20/18 11:32 Dose: 100 mg Potassium Chloride (K-Dur) 10 meq PO DAILYCM [facility] Last Admin: 06/20/18 08:23 Dose: 10 meq Pramipexole Dihydrochloride (Mirapex) 1 mg PO DAILY@2200 [facility] Last Admin: 06/19/18 22:41 Dose: 1 mg Pravastatin Sodium (Pravachol) 40 mg PO QHS [facility] Last Admin: 06/19/18 22:41 Dose: 40 mg Risperidone (Risperdal) 0.25 mg PO DAILY [facility] Last Admin: 06/20/18 08:22 Dose: 0.25 mg Senna/Docusate Sodium (Senokot-S, Clotilde-Colace) 1 tablet PO BID [facility] Last Admin: 06/20/18 08:22 Dose: 1 tablet Sodium Chloride () 5 - 15 ml IV UD PRN PRN Reason: SALINE FLUSH Last Admin: 06/20/18 06:58 Dose: 10 ml Temazepam (Restoril) 30 mg PO QHS [facility] Last Admin: 06/19/18 22:41 Dose: 30 mg Throat Lozenges (Cepacol Sore Throat Lozenge) 2 lozenge MUCOUS MEM Q2H PRN PRN PRN Reason: COUGH Last Admin: 06/19/18 22:40 Dose: 1 lozenge Tolterodine Tartrate (Detrol La) 4 mg PO DAILY [facility] Last Admin: 06/20/18 08:23 Dose: 4 mg Medical Necessity - Tobacco Use Smoking Status: Current every day smoker Assessment/Plan All Active Problems (Last Reviewed 06/13/18 @ 22:00 by Yunior Heaton MD) UTI (urinary tract infection) (Acute) Severe sepsis (Acute) Hypoxemia (Acute) Suicidal ideation (Acute) COPD with exacerbation (Acute) Severe sepsis (Acute) Community acquired pneumonia (Acute) SIRS (systemic inflammatory response syndrome) (Acute) Viral illness (Acute) History of right hip replacement (Acute) Broken ankle (Acute) S/P laparoscopic cholecystectomy (Acute) S/P appendectomy (Acute) Acidosis (Acute) Acute and chronic respiratory failure with hypoxia (Acute) Nicotine abuse (Acute) Acute respiratory failure with hypercapnia (Acute) Acute respiratory failure with hypoxia and hypercapnia (Acute) Acute exacerbation of chronic obstructive airways disease (Acute) Hypokalemia (Acute) Subtherapeutic serum dilantin level (Acute) Subtherapeutic phenobarb level (Acute) Fever (Acute) Fracture of left great toe (Resolved) Frequent falls (Resolved) 1. URTI due to RSV infection * resolving. Has no complaints. SOB has resolved * on duonebs and PO prednisone (x 5 days). * 2. COPD exacerbation due to URTI * as under 1. * 3. Suicidal ideation and depression * stable. cleared by mental health crises for dc to SNF * continue risperidone, temazepam and remeron * 4. Seizure disorder: * on phenobarbital, dilantin and Trileptal. * Phenytoin level was slightly elevated at 21.4 with upper limit being 20. * Repeat level of the dose was decreased was 16.1. * 5. Restless leg sydrome: on Requip 6. Hypertension and hyperlipidemia: on metoprolol and pravastatin 7. Cirrhosis: On bisphosphonates 8. GERD: Stable. On Zantac 9. Glaucoma: Stable. Continue eyedrops. DVT prophylaxis: lovenox Patient: Awaiting placement Code Visit Inpatient E&M: 01500 Subs Hosp L2
[2018-06-20] MEDS: Temazepam 15 MG Capsule 30 MG PO (22:03)
[2018-06-20] MEDS: Mirtazapine 15 MG Tablet PO (22:03)
[2018-06-20] MEDS: Pramipexole Di-HCl 1 MG Tablet PO (22:04)
[2018-06-20] MEDS: Pravastatin 40 MG Tablet PO (22:04)
[2018-06-20] MEDS: MELATONIN 10 MG TABLET PO (22:04)
[2018-06-20] MEDS: Latanoprost 0.005% 1 Bottle 1 DRP EACH EYE (22:12)
[2018-06-21] VITALS (11 sets, daily range): BP systolic 96–111; BP diastolic 50–74; PULSE 68–87; RESP 15–20; TEMP 36.6–37.1; O2SAT 94–98
[2018-06-21] MEDS: Ipratropium/Albuterol Sulfate 3 ML AMPUL.NEB INHALATION ×4 (03:00→14:59)
[2018-06-21] MEDS: Methadone 10 MG Tablet PO ×2 (06:04→15:10)
[2018-06-21] MEDS: 0.9% NaCl Peripheral Flush Adult/Peds IV ×2 (06:04→15:11)
[2018-06-21] MEDS: BENZOCAINE/MENTHOL 1 LOZENGE 2 LOZENGE MUCOUS MEM (06:10)
[2018-06-21] MEDS: Budesonide Respules 0.5 MG/2 ML AMPUL.NEB. INHALATION (07:11)
[2018-06-21] MEDS: Phenytoin Na 100 MG Capsule PO ×2 (08:18→11:15)
[2018-06-21] MEDS: Aspirin 81 MG TAB.CHEW PO (08:18)
[2018-06-21] MEDS: Gabapentin 300 MG Capsule PO ×2 (08:18→11:15)
[2018-06-21] MEDS: Etodolac 200 MG Capsule 400 MG PO (08:19)
[2018-06-21] MEDS: Tolterodine Tartrate 4 MG CAP.SA PO (09:56)
[2018-06-21] MEDS: guaiFENesin 1,200 MG Tablet 1200 MG PO (09:56)
[2018-06-21] MEDS: Senna/Docusate Sodium 1 Tablet PO (09:57)
[2018-06-21] MEDS: OXcarbazepine 600 MG Tablet PO (09:57)
[2018-06-21] MEDS: RisperiDONE 0.25 MG Tablet PO (09:57)
[2018-06-21] MEDS: Famotidine 20 MG Tablet 40 MG PO (09:57)
[2018-06-21] MEDS: Phenobarbital 32.4 MG Tablet PO (09:57)
[2018-06-21] MEDS: Metoprolol Tartrate 25 MG Tablet PO (10:00)
[2018-06-21] MEDS: Enoxaparin 40 MG/0.4 ML Syringe SC (10:01)
[2018-06-21] MEDS: Acetaminophen 325 MG Tablet 650 MG PO (10:47)
--- NOTE | 2018-06-21 10:59 | CASEMGMT ---
Patient was approved to go to [facility]. SW notified Physician. They asked SW to set up transport for later as they have to re-arrange some rooms. [place] called [facility] [place] and arranged for patient to get picked up at 4p via van. Michela CARTER MSW
--- NOTE | 2018-06-21 11:23 | PCM.TXEXTCAR ---
- Diet 06/13/18 20:34 Diet: Regular Diet Food consistency:: Regular Liquid Consistency:: Regular/Thin - Routine Orders/Code Status Enema Type: Fleetz Enema Frequency: Daily PRN Suppository Type: Dulcolax 10mg Suppository Frequency: Daily PRN O2 Liters per Minute: 3 O2 Frequency: Continuous Keep PO Greater than or Equal to (%): 92 Code Status: Full Code - Wound(s) BUE Wound Type: Abrasion B/L thighs Wound Type: Abrasion - Therapies Physical Therapy: Eval and Treat Occupational Therapy: Eval and Treat - Allergies/Procedures Done in Hospital Allergies/Adverse Reactions: Allergies Penicillins Allergy (Verified 03/19/18 20:21) Anaphylaxis codeine Adverse Reaction (Verified 03/19/18 20:21) Nausea Procedures: None - Type of Care/Length of Stay Estimated LOS: Convalescent Care Less Than 30 days Type of Care Needed: Skilled Rehab Potential: Fair Prognosis: Fair - Additional Orders/Day of Discharge Day of Discharge: 06/21/18 - Dietary and Speech Recommendations Dietitian Recommendations/Changes: Continue regular diet. Ensure Enlive 120 mL 4x/day when pt able to tolerate PO diet better. - Follow Up Care Primary Care Physician: Patel Veliz Chi, MD [Primary Care Provider] - Please follow up with your Primary Care Physician in: one week Please Follow Up With: Patel Veliz Chi, MD
--- NOTE | 2018-06-21 11:24 | CASEMGMT ---
Convalescent completed on [facility]. GRAHAM notified patient of d/c and peanut picker at 4p. She asked SW to notify her son. GRAHAM called her son and left him a voice mail letting him know patient will be going to [facility] today and will be picked up at 4p. Await orders. Michela CARTER MSW
--- NOTE | 2018-06-21 11:26 | DS.PCM_ITS ---
Discharge Date and Diagnosis - Problem List Patient Problems: Active and Suspected Problems (Last Reviewed 06/13/18 @ 22:00 by Yunior Heaton MD) Severe sepsis (Acute) Hypoxemia (Acute) Suicidal ideation (Acute) COPD with exacerbation (Acute) Severe sepsis (Acute) Community acquired pneumonia (Acute) Date of Admission: 06/13/18 Date of Discharge: 06/21/18 - Primary Discharge Diagnosis Active and Suspected Problems (Last Reviewed 06/13/18 @ 22:00 by Yunior Heaton MD) Severe sepsis (Acute) Hypoxemia (Acute) Suicidal ideation (Acute) COPD with exacerbation (Acute) Severe sepsis (Acute) Community acquired pneumonia (Acute) URTI due to RSV hypokalemia - Secondary Discharge Diagnosis Chronic Problems (Last Reviewed 06/13/18 @ 22:00 by Yunior Heaton MD) Tobacco use (Chronic) Generalized weakness (Chronic) Debility (Chronic) Depression (Chronic) Insomnia (Chronic) She takes Temazepam every night for sleep, prescribed by Dr. Veliz Hypertension (Chronic) Physical debility (Chronic) Degenerative disc disease, lumbar (Chronic) Pain, chronic (Chronic) Seizure disorder (Chronic) Restless leg syndrome (Chronic) COPD (chronic obstructive pulmonary disease) (Chronic) 1 ppd now smoker 4 ppd Obstructive sleep apnea (Chronic) non-compliant with CPAP but has oxygen to wear at night Smokes with greater than 40 pack year history (Chronic) Hospital Course and Treatment Imaging Results: Diagnostic Data Chest X-Ray 06/15/18 13:51 IMPRESSION: Heavy markings noted at the bases but no obvious consolidation or atelectasis no change noted since the study of June 13, 2018 Electronically Signed: Jl Wise, at 14:55 EST Tel , Service support , Consultations 06/13/18 21:07 Consult: Mental Health/Crisis Routine Reason for consult?: Suicial Notified answering service Date Notified:: 06/13/18 Time notified:: 21:08 Operations: None Procedures: None Summary of Care Provided: The patient is a 67 year old F with an extensive past medical history as listed below and includes chronic respiratory failure due to COPD on 2 L of oxygen. She was admitted through the ED with a complaint of worsening shortness of breath, fever chills, wheezing and a productive cough. The ED she was found to be saturating at 87% on 3 L. 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 She was admitted and managed for severe sepsis due to pneumonia on account of tachypnea and tachycardia as well as elevated lactic acid. She was started on IV ceftriaxone and azithromycin and breathing treatments as well as IV Solu-Medrol. Rapid influenza screen was negative. She was also managed for hypokalemia, COPD exacerbation and suicidal ideation. Respiratory panel was positive for RSV infection and sepsis was ruled out as the SIRS criteria was likely due to the RSV infection and upper respiratory tract infection. She remained stable and oxygen was titrated down to a baseline 2-3 L of oxygen. She was evaluated by mental health crisis on 06/19/2018 and cleared by them. She initially wanted to be discharged home but subsequently changed her mind and wanted to go to a senior living as he could not take care of herself at home. She was [facility] to a correction facility on 06/21/2018. She is follow-up with her primary care doctor. She was discharged on a baseline 2-3 L of oxygen. Patient seen and examined prior to discharge. She felt well and had no complaints. She was on 3 L of oxygen. She denied any fever, any chills, any chest pain, shortness of systems is otherwise negative. Labs and vitals reviewed. Home medications reviewed and reconciled. o/e: Vital Signs Height 5 ft 5 in Weight: 157 lb 12.804 oz Weight in Pounds 157.8 lbs Pulse Ox [AMBULATING on Room 91 Air] Pulse Ox [At REST on Room Air] 94 Pulse Ox 98 Temperature 98.7 F Pulse Rate 73 Respiratory Rate 18 Blood Pressure [BP] 98/46 Blood Pressure 97/74 Blood Pressure Position [BP] Right Lateral Blood Pressure Position Sitting []General: Alert, Oriented x3, Cooperative, No apparent distress HEENT: Atraumatic, PERRLA, EOMI, Normocephalic Oral: Moist Mucosa Neck: Supple, No JVD, Negative Carotid Bruits, Negative Hepatojugular Reflux, No Nodes, No Nuchal Rigidity Lungs: Clear to auscultation, Normal air movement, No rhonchi, No wheeze, No rales, - - on 3L of oxygen Cardiovascular: Regular rate, Regular Rhythm, Normal S1, Normal S2, No murmurs Abdomen: Bowel Sounds Present, Soft, Non Tender, Non-Distended, No Hepato- splenomegaly Extremities: No clubbing, No cyanosis, No edema, Capillary Refill Less than 3 Seconds Skin: No rashes, No breakdown Musculoskeletal: No Tenderness to Palpation of Joints or Extremities Lymphatic: No Cervical, Supraclavicular, or Inguinal Adenopathy Neurological: Cranial nerves II-XII grossly intact Psych/Mental Status: Normal Affect, Appropriate, Alert and oriented to time, place, person, mood and affect Plan as stated above. Was also discharged with a prescription for p.o. prednisone 40 mg daily for 5 days. Patient Problems: Active and Suspected Problems (Last Reviewed 06/13/18 @ 22:00 by Yunior Heaton MD) Severe sepsis (Acute) Hypoxemia (Acute) Suicidal ideation (Acute) COPD with exacerbation (Acute) Severe sepsis (Acute) Community acquired pneumonia (Acute) - Physical Exam Vital Signs Temp Pulse Resp BP Pulse Ox 98.7 F 74 18 97/74 98 06/21/18 10:00 06/21/18 10:49 06/21/18 10:49 06/21/18 10:00 06/21/18 10:00 Oxygen Flow Rate (L/min) 1 Oxygen Delivery Method Room Air Weight: 157 lb 12.804 oz Body Mass Index (BMI) 26.2 Intake and Output for Last 24 Hours 06/19/18 06/20/18 06/21/18 23:59 23:59 23:59 Intake Total 1150 / 1150 820 / 820 720 / 720 Output Total 100 / 100 0 / 0 Balance 1050 / 1050 820 / 820 720 / 720 Microbiology Past 72 Hours 06/13/18 18:24 Blood Culture - Final Blood Culture (Wb) - Anticubital Left No growth in 5 days. 06/13/18 18:12 Blood Culture - Final Blood Culture (Wb) - Anticubital Right No growth in 5 days. Discharge Diet: Low fat/ Low Cholesterol Discharge Activity: Return to Normal Activity Weight Bearing Status: Weight bearing as tolerated Call your doctor if you observe: Fever of 101 or Higher, Shortness of breath, Increased palpitations (irregular heartbeat), - - worsening cough Home Medications: Medications to take at Discharge Albuterol Aerosols [Ventolin Aerosols] 2.5 mg INHALATION Q6H PRN 05/12/16 Alendronate Sodium [Fosamax] 70 mg PO FR 05/12/16 Etodolac 400 mg PO BID 05/12/16 Fluticasone/Salmeterol [Advair 250/50 Mcg Diskus] 2 puff INHALATION BID 05/12/16 Gabapentin [Neurontin] 300 mg PO 4X/DAY 05/12/16 Temazepam [Restoril] 30 mg PO QHS 06/24/17 Mirtazapine [Remeron] 15 mg PO QHS 07/03/17 Latanoprost 0.005% [Xalatan Opthalmic] 1 drp EACH EYE QHS 07/04/17 Methadone HCl 10 mg PO TID 09/04/17 Ergocalciferol [Vitamin D] 50,000 units PO MO 11/07/17 Phenobarbital 32.4 mg PO BID 11/07/17 Potassium Chloride [K-Dur] 10 meq PO DAILY 11/07/17 Pravastatin [Pravachol] 40 mg PO QHS 11/07/17 Acetaminophen [Tylenol Tablet] 650 mg PO Q6H PRN PRN tablet 03/07/18 Aspirin [Aspirin, Baby] 81 mg PO DAILY@0800 tab.chew 03/07/18 Metoprolol Tartrate 25 mg PO BID #60 tab 03/07/18 Ipratropium/Albuterol Sulfate [Duoneb] 3 ml INHALATION BID 04/03/18 Sennosides/Docusate Sodium [Senna-Docusate Sodium Tablet] 2 each PO BID 04/03/18 Clotrimazole 1 applic TOPICAL DAILY 06/13/18 Hydrocortisone 1% Crm 1 applic TOPICAL BID 06/13/18 Melatonin 10 mg PO QHS 06/13/18 Oxcarbazepine [Trileptal] 600 mg PO BID 06/13/18 Phenytoin Sodium Extended [Dilantin] 100 mg PO 4X/DAY 06/13/18 Ranitidine HCl [Zantac] 300 mg PO DAILY 06/13/18 Risperidone 0.25 mg PO DAILY 06/13/18 Ropinirole HCl [Requip] 2 mg PO DAILY 06/13/18 Tolterodine Tartrate [Detrol LA] 4 mg PO DAILY 12/25/18 Prednisone 40 mg PO DAILY 5 Days #10 tablet 06/19/18 Following Prescrptions Were Given to Patient: Prednisone 40 mg PO DAILY 5 Days #10 tablet Primary Care Physician: Patel Veliz Chi, MD [Primary Care Provider] - Please follow up with your Primary Care Physician in: one week Please Follow Up With: Patel Veliz Chi, MD Patient Instructions: RSV (Respiratory Syncytial Virus) Disposition: Nursing Home facility Minutes spent on discharge:: 35 Patient Condition:: Stable Medical Necessity - Tobacco Use Smoking Status: Current every day smoker Meaningful Use Info Meaningful Use Diagnoses (Choose all that apply): None applicable Code Visit Inpatient E&M: 97344 Disch Hosp
--- NOTE | 2018-06-21 15:32 | NURSING ---
report called to [employer]
== END 2018-06-21 15:25 | disposition skilled nursing facility (03) | DRG 190 ==
LOC: ED 19:54 → PCU 20:07
PROVIDERS: Family Medicine; Physician Assistant; Admitting Provider Hospitalist; Emergency Provider Emergency Medicine; Family Provider Family Medicine Geriatric Medicine; PCP Family Medicine Geriatric Medicine; Visit Provider Student in an Organized Health Care Education/Training Program
DX: J44.1 Chronic obstructive pulmonary disease with (acute) exacerbation (principal); J96.21 Acute and chronic respiratory failure with hypoxia; R45.851 Suicidal ideations; G40.919 Epilepsy, unspecified, intractable, without status epilepticus; J06.9 Acute upper respiratory infection, unspecified; B97.4 Respiratory syncytial virus as the cause of diseases classified elsewhere; G25.81 Restless legs syndrome; G47.33 Obstructive sleep apnea (adult) (pediatric); F17.210 Nicotine dependence, cigarettes, uncomplicated; E87.6 Hypokalemia; M51.36 Other intervertebral disc degeneration, lumbar region; I10 Essential (primary) hypertension; Z91.19 Patient's noncompliance with other medical treatment and regimen; Z99.81 Dependence on supplemental oxygen; H40.9 Unspecified glaucoma; E78.5 Hyperlipidemia, unspecified; M81.0 Age-related osteoporosis without current pathological fracture; Z79.83 Long term (current) use of bisphosphonates; K21.9 Gastro-esophageal reflux disease without esophagitis
CPT/HCPCS: 36415; 36600; 71045; 71046; 80048; 80053; 80185; 80307; 80320; 81001; 82803; 83605; 84484; 85025; 85610; 85730; 87040; 87086; 87088; 87449; 87633; 87804; 93005; 94002; 94003; 94640; 94667; 94668; 97110; 97116; 97162; 97165; 97530; 97535; 99251; 99285; 99406; J7030; A4216; G0463; G0480

== ENCOUNTER 2018-07-14 15:59 | Inpatient (IN) | payer MEDICARE, SELFPAY ==
[2018-06-13 20:43] VITALS: BMI 26.2
[2018-07-14] VITALS (9 sets, daily range): BP systolic 106–168; BP diastolic 64–108; PULSE 92–110; RESP 18–30; TEMP 36.8–37.7; O2SAT 88–97; BMI 28.5; BMI 26.0
--- NOTE | 2018-07-14 16:01 | EKG12_ITS ---
Test Reason : SOB Blood Pressure : / mmHG Vent. Rate : 091 BPM Atrial Rate : 091 BPM P-R Int : 138 ms QRS Dur : 088 ms QT Int : 370 ms P-R-T Axes : 076 022 045 degrees QTc Int : 455 ms Normal sinus rhythm Normal ECG Confirmed by JAMES LEACH, LUZ ([id number]), website/blog editor GOPI RAMIREZ ([id number] on 07/18/2018 3:30:26 PM Referred By: CALVIN Confirmed By:LUZ RAMIREZ MD
--- NOTE | 2018-07-14 16:05 | ED.VISSUMM ---
- ER Visit Summary Date of Service: 07/14/18 Chief Complaint: Shortness of breath History of Present Illness: The patient is a 67 F presents to the emergency department shortness of breath and cough. The patient does have a history of COPD. She does continue to smoke. She is on 2 L oxygen at home. She states yesterday, she had a mechanical fall. She landed on her buttocks. She states she had a hard time walking since. Over the past 24 hours, she had worsening dyspnea, productive cough, and wheezing. She is unsure if she had fevers but she does admit to chills. When she fell, she did not strike her head. She denies any chest pain. She has been using her oxygen with little improvement. She is also tried nebulized treatments with little improvement. Physical Examination: Vital signs reviewed General: Well-nourished, well-developed Head: Normocephalic, atraumatic Eyes: Pupils equal and reactive, extraocular muscles intact Neck, supple, no lymphadenopathy Heart: Regular rate and rhythm Respiratory: No distress, wheezing throughout all lung tomlinson Abdomen: Soft, nontender, nondistended, no peritoneal signs Back: Nontender Extremities: Nontender, no edema, no cords Skin: Normal color no rash Neuro: Alert and oriented, no focal or lateralizing deficits Test Results: [] Emergency Department Course and Treatment: The patient presents with cough and shortness of breath. She has diffuse wheezing throughout all lung tomlinson. With her 2 L, she was not hypoxic. Sepsis workup was pursued. Her EKG shows sinus rhythm without acute ischemic change. She does have a mild leukocytosis. X-ray demonstrates right lower lobe infiltrate. Blood cultures were obtained. Her lactic is normal. With nebulized treatments, she does have some improvement in aeration, but really no symptomatic change. The patient was recently hospitalized a month ago for pneumonia. She is going to require broad-spectrum coverage for healthcare associated pneumonia. At this time, the patient will be admitted due to her increased risk of respiratory failure. The patient was discussed with the hospitalist. Treatment Plan: [] Disposition: Admission Impression: 1. Healthcare associated pneumonia 2. Dyspnea This note was generated with [employer] software. It may contain incorrect words, spelling, and punctuation that were not noted in review of the chart prior to signing ED Disposition - Plan for ED Patient: Chief Complaint: Shortness of Breath Referrals: Patel Veliz Chi, MD [Primary Care Provider] -
[2018-07-14] MEDS: Ipratropium/Albuterol Sulfate 3 ML AMPUL.NEB INHALATION ×3 (16:43→23:10)
[2018-07-14] MEDS: Albuterol 2.5 MG/3 ML VIAL.NEB. INHALATION ×3 (16:43→17:03)
--- NOTE | 2018-07-14 16:50 | RAD_ITS ---
STUDY: X-RAY CHEST REASON FOR EXAM: Female, 67 years old. Increased shortness of breath. TECHNIQUE: Single AP portable view of the chest. COMPARISON: June 15, 2018. FINDINGS: Road E There is a questionable infiltrate at the right lung base not previously noted. There is no demonstrated pleural abnormality. Normal size heart. Normal mediastinum and denae. Normal visualized pulmonary arteries. Normal visualized aortic arch and descending thoracic aorta. The thoracic spine is obscured by the mediastinum. There is degenerative osteoarthritis of the bilateral shoulders. There is no demonstrated abnormality of the visualized soft tissue structures of the upper abdomen. RAD/Chest 1 View (Portable) IMPRESSION: Right basilar infiltrate. Electronically Signed: Tony Mckeon DO at 17:24 EST Tel [phone], Service support ,
--- NOTE | 2018-07-14 16:50 | RAD_ITS ---
STUDY: X-RAY - PELVIS REASON FOR EXAM: Female, 67 years old. Pain. TECHNIQUE: One view of the pelvis was obtained. COMPARISON: June 21, 2016. FINDINGS: There is a non-specific bowel gas pattern. Normal visualized soft tissue structures. Normal bilateral iliac wings, sacroiliac joints and visualized sacrum. Normal visualized bilateral superior and inferior pubic rami. Normal pubic symphysis. Normal ischial tuberosities. Stable right total hip arthroplasty. There is no fracture or loosening from the underlying bone. There is no dislocation. Normal visualized left femoral head. Normal left acetabulum. There is moderate articular joint space narrowing of the left hip. RAD/Pelvis 1 or 2 Views IMPRESSION: 1. Stable degenerative changes of the left hip without acute abnormality. 2. Stable right total hip arthroplasty. Electronically Signed: Tony Mckeon DO at 17:23 EST Tel [phone], Service support ,
[2018-07-14] MEDS: 0.9% Normal Saline 1,000 ML 150 ML IV (16:58)
[2018-07-14] MEDS: MethylPREDNISolone 125 MG/2 ML Vial IV (16:58)
[2018-07-14 17:43] LABS: Absolute Lymphocyte Count 3.03 X10^3/ul (0.83-4.51); Absolute Neutrophil Count 10.1 X10^3/uL (2.0-7.7); Basophil# 0.02 X10^3/uL; Basophil% 0.1 % (0-1); Eosinophil# 0.24 X10^3/uL; Eosinophils% 1.7 % (0-5); Hematocrit 39.5 % (37-47); Hemoglobin 12.5 g/dl (12.0-15.0); Lymphocyte # 3.03 X10^3/ul (4.0); Lymphocyte % 21.5 % (19-41); Mean Corp Hgb Conc 31.6 g/gl (32-36); Mean Corpuscular Hgb 30.9 pg (27.0-32.0); Mean Corpuscular Volume 97.8 fL (81-99); Mean Platelet Vol. 9.1 fl (6.2-12.0); Monocyte# 0.69 X10^3/uL; Monocyte% 4.9 % (0-10); Neutrophil # 10.08 X10^3/uL (2.7-7.7); Neutrophil % 71.5 % (47-70); Platelet Count 165 K/mm3 (150-450); RBC Distribution Width CV 15.4 % (11.6-14.6); RBC Distribution Width SD 53.1 fl (35.1-43.9); Red Blood Count 4.04 M/mm3 (4.2-5.4); White Blood Count 14.1 K/mm3 (4.4-11.0)
[2018-07-14 17:47] LABS: Anion Gap 7 (5-15); BUN 8 mg/dL (7-18); Calcium,Total 8.9 mg/dL (8.5-10.1); Chloride 104 mmol/L (98-107); EST Glomerular Filtration Rate 130 mL/min (>60); Est Glom Filt Rate - Afr Amer 157 mL/min (>60); Estimated Creatinine Clearance 48.45 ml/min; Glucose 111 mg/dL (74-106); Potassium 4.2 mmol/L (3.5-5.1); Sodium Level 137 mmol/L (136-145)
[2018-07-14 17:47] LABS: POSITIVE COUNT NO; POSITIVE DIFFERENTIAL NO; POSITIVE MORPHOLOGY NO
--- NOTE | 2018-07-14 17:47 | ED.RN ---
PT IS VERY HARD STICK. MULTIPLE STICKS TO OBTAIN AN IV AND INITIAL BLOOD WORK. LAB CALLED TO COME DRAW PT. LAB UNABLE TO OBTAIN A LACTIC ACID ON PATIENT. DR. SIMPSON INFORMED. AWAITING FURTHER ORDERS. PT UP FOR RE-EVAL.
--- NOTE | 2018-07-14 17:56 | ED.RN ---
DR. SIMPSON INFORMED OF PT MEETING SEPSIS SCREEN CRITERIA. PT HARD STICK. DR. SIMPSON INFORMED OF SHORTNESS OF BREATH CONTINUED. ORDERS FOR ANTIBIOTICS PLACED.
[2018-07-14] MEDS: levoFLOXacin IV 750 MG/150 ML BAG 100 MG IV (18:01)
[2018-07-14 18:08] LABS: BNP,B-Type NATRIURETIC PEPTIDE 42.9 pg/mL (0-100)
[2018-07-14 18:19] LABS: Lactic Acid 1.3 mmol/L (0.4-2.0)
--- NOTE | 2018-07-14 18:36 | PCM.HP.STD ---
Problem List (1) Tobacco use Status: Chronic (2) Depression Status: Chronic Qualifiers: (3) Insomnia Status: Chronic Qualifiers: Comment: She takes Temazepam every night for sleep, prescribed by Dr. Veliz (4) Hypertension Status: Chronic Qualifiers: (5) Physical debility Status: Chronic (6) Degenerative disc disease, lumbar Status: Chronic (7) Seizure disorder Status: Chronic (8) Restless leg syndrome Status: Chronic (9) COPD (chronic obstructive pulmonary disease) Status: Chronic Qualifiers: Comment: 1 ppd now smoker 4 ppd (10) Obstructive sleep apnea Status: Chronic Comment: non-compliant with CPAP but has oxygen to wear at night History of Present Illness Date of Admission: 07/14/18 Chief Complaint: Shortness of breath. The patient is a 67 year old F with past medical history as mentioned above presented to the emergency room because of shortness of breath and cough. Her symptoms started to worsen for the last couple of days, getting more short of breath than usual, mainly with activity, minimally relieved with rest, associated with productive cough with minimal sputum as well as occasional wheezes. She mentioned that yesterday, she was dizzy and she felt on her buttocks and she has been having some intermittent discomfort and pain. She denies chest pain, palpitation, syncope or presyncope. She denied abdominal pain, nausea or vomiting. She denied urinary symptoms. She denies fever or chills. In the emergency department, patient was afebrile, tachycardic, blood pressure was stable and pulse ox was 88% on room air, improved to 97% on 3 L. When I saw the patient and because she was on the bedside commode, her pulse ox was 93% on 4 L after she came back to the bed. Her routine blood work was remarkable for leukocytosis with neutrophilia, otherwise normal. Lactic acid was normal. BNP and troponin was negative. EKG revealed normal sinus rhythm without evidence of acute ischemic changes or cardiac arrhythmias. Chest x-ray revealed right lower lobe infiltrate. She is being Pepcid for right lower lobe healthcare associated pneumonia with SIRS and acute on chronic hypoxic respiratory failure. Past Medical History Past Medical History (Chronic Problems): Chronic Problems (Last Updated 07/14/18 @ 18:36 by Judson Hyman MD) Tobacco use (Chronic) History of right hip replacement (Chronic) S/P laparoscopic cholecystectomy (Chronic) S/P appendectomy (Chronic) Depression (Chronic) Insomnia (Chronic) She takes Temazepam every night for sleep, prescribed by Dr. Veliz Hypertension (Chronic) Physical debility (Chronic) Degenerative disc disease, lumbar (Chronic) Pain, chronic (Chronic) Seizure disorder (Chronic) Restless leg syndrome (Chronic) COPD (chronic obstructive pulmonary disease) (Chronic) 1 ppd now smoker 4 ppd Obstructive sleep apnea (Chronic) non-compliant with CPAP but has oxygen to wear at night Smokes with greater than 40 pack year history (Chronic) Medical History: Medical History (Last Updated 07/14/18 @ 18:36 by Judson Hyman MD) Depression (Chronic) F32.9 Insomnia (Chronic) G47.00 She takes Temazepam every night for sleep, prescribed by Dr. Veliz Hypertension (Chronic) I10 Physical debility (Chronic) R53.81 Degenerative disc disease, lumbar (Chronic) M51.36 Pain, chronic (Chronic) G89.29 Seizure disorder (Chronic) G40.909 Restless leg syndrome (Chronic) COPD (chronic obstructive pulmonary disease) (Chronic) J44.9 1 ppd now smoker 4 ppd Obstructive sleep apnea (Chronic) G47.33 non-compliant with CPAP but has oxygen to wear at night Smokes with greater than 40 pack year history (Chronic) F17.210 Allergies Penicillins Allergy (Verified 03/19/18 20:21) Anaphylaxis codeine Adverse Reaction (Verified 03/19/18 20:21) Nausea Home Medications: Ambulatory Orders Medication Instructions Recorded Albuterol Aerosols [Ventolin 2.5 mg INHALATION Q6H PRN 05/12/16 Aerosols] Alendronate Sodium [Fosamax] 70 mg PO FR 05/12/16 Etodolac 400 mg PO BID 05/12/16 Fluticasone/Salmeterol [Advair 2 puff INHALATION BID 05/12/16 250/50 Mcg Diskus] Gabapentin [Neurontin] 300 mg PO 4X/DAY 05/12/16 Temazepam [Restoril] 30 mg PO QHS 06/24/17 Mirtazapine [Remeron] 15 mg PO QHS 07/03/17 Latanoprost 0.005% [Xalatan 1 drp EACH EYE QHS 07/04/17 Opthalmic] Methadone HCl 10 mg PO TID 09/04/17 Ergocalciferol [Vitamin D] 50,000 units PO MO 11/07/17 Phenobarbital 32.4 mg PO BID 11/07/17 Pravastatin [Pravachol] 40 mg PO QHS 11/07/17 Acetaminophen [Tylenol Tablet] 650 mg PO Q6H PRN PRN tablet 03/07/18 Aspirin [Aspirin, Baby] 81 mg PO DAILY@0800 tab.chew 03/07/18 Sennosides/Docusate Sodium 2 each PO BID 04/03/18 [Senna-Docusate Sodium Tablet] Clotrimazole 1 applic TOPICAL PRN PRN 06/13/18 Melatonin 10 mg PO QHS 06/13/18 Oxcarbazepine [Trileptal] 600 mg PO BID 06/13/18 Phenytoin Sodium Extended 100 mg PO 4X/DAY 06/13/18 [Dilantin] Ranitidine HCl [Zantac] 300 mg PO DAILY 06/13/18 Risperidone 0.25 mg PO DAILY 06/13/18 Ropinirole HCl [Requip] 2 mg PO DAILY 06/13/18 Tolterodine Tartrate [Detrol LA] 4 mg PO DAILY 06/13/18 Albuterol Sulfate [Ventolin Hfa] 2 puff INHALATION BID 07/14/18 Multivitamin with Minerals 1 tab PO DAILY 07/14/18 [Multiple Vitamin] Potassium Chloride [Klor-Con M10] 10 meq PO DAILY 07/14/18 Surgical History: Surgical History (Last Updated 07/14/18 @ 18:35 by Judson Hyman MD) History of right hip replacement (Chronic) Z96.641 S/P laparoscopic cholecystectomy (Chronic) Z90.49 S/P appendectomy (Chronic) Z90.49 Surgical History: appendectomy, cholecystectomy, - - Fractured right ankle, carpal tunnel surgery, removal of teeth, right ovariectomy and fallopian tube removal. 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 Lives: Alone Smoking Status: Current some day smoker Tobacco Use: Cigarettes Alcohol: None Drugs: None - *Family History Maternal Family History: Family History (Last Reviewed 06/13/18 @ 22:00 by Yunior Heaton MD) Mother Diabetes Heart disease Hypertension CAD (coronary artery disease) CVA (cerebral vascular accident) History Items: Diabetes Paternal Family History: Family History (Last Reviewed 06/13/18 @ 22:00 by Yunior Heaton MD) Mother Diabetes Heart disease Hypertension CAD (coronary artery disease) CVA (cerebral vascular accident) History Items: Cancer - colon Sibling Family History: Family History (Last Reviewed 06/13/18 @ 22:00 by Yunior Heaton MD) Mother Diabetes Heart disease Hypertension CAD (coronary artery disease) CVA (cerebral vascular accident) History Items: No pertinent history Review of Systems Constitutional: Reports: Anorexia, Weakness. Denies: Chills, Fever, Fatigue Eyes: Denies: Blurred vision, Double vision, Drainage, Redness HEENT: Denies: Difficulty Hearing, Ear Pain, Eye Pain, Nasal Congestion, Sore Throat Cardiovascular: Denies: Chest Pain, Chest Pressure, Chest Tightness, Edema, Heaviness, Palpitations, Syncope Respiratory: Reports: Cough, Shortness of Breath, Shortness of breath upon exertion, Sputum production, Wheezing. Denies: Pleuritic Pain Gastrointestinal: Denies: Abdominal Pain, Constipation, Diarrhea, Nausea, Vomiting Genitourinary: Denies: Dysuria, Frequency, Hematuria Musculoskeletal: Denies: Arm Pain, Back Pain, Foot Pain Skin: Denies: Dryness, Rash Neurological: Denies: Balance problems, Double vision, Change in Speech, Slurred speech, Confusion, Headaches, Incoordination, Numbness Psychiatric: Reports: Depression. Denies: Anxiety Endocrine: Denies: Change in Body Habitus, Polydipsia VTE Information - Inpt Only VTE Present on Admission: No VTE Mechan Device Prophylaxis: None VTE Pharm Prophylaxis ordered?: Yes - Physical Exam General: Alert, Oriented x3, Cooperative, - - Short of breath, tachypneic, anxious. HEENT: Atraumatic, PERRLA, EOMI, Normocephalic Oral: Moist Mucosa, No Gingival or Mucosal Lesions/ Ulcerations Neck: Supple, No JVD, Negative Carotid Bruits, Trachea Midline, Thyroid Normal Size and Texture Lungs: Clear to auscultation, Diminished, Rhonchi, Short of Breath, Tachypneic, - - Decreased breath sounds bilateral, diffuse bilateral rhonchi, crackles and bronchial breathing on the right base. Cardiovascular: Regular rate, Regular Rhythm, Normal S1, Normal S2, PMI Normal, Tachycardic Abdomen: Bowel Sounds Present, Soft, Non Tender, Non-Distended, No Hepato-splenomegaly Extremities: No clubbing, No cyanosis, No edema Skin: No rashes, No breakdown Lymphatic: No Cervical, Supraclavicular, or Inguinal Adenopathy Neurological: Cranial nerves II-XII grossly intact, Motor Exam 5/5 strength throughout Psych/Mental Status: Normal Affect, Anxious, Alert and oriented to time, place, person, mood and affect Vital Signs Temp Pulse Resp BP Pulse Ox 99.9 F H 110 H 20 H 168/108 H 95 07/14/18 18:32 07/14/18 18:32 07/14/18 18:32 07/14/18 18:32 07/14/18 18:32 Oxygen Flow Rate (L/min) 4 Oxygen Delivery Method Nasal Cannula Weight: 171 lb 8.314 oz Body Mass Index (BMI) 28.5 Microbiology Past 72 Hours 07/14/18 16:20 Influenza Types A,B Direct FA (JASWANT) - Final Mucosa - Nose Laboratory Tests Past 24 Hrs 07/14/18 07/14/18 07/14/18 17:01 17:12 17:31 WBC 14.1 H RBC 4.04 L Hgb 12.5 Hct 39.5 MCV 97.8 MCH 30.9 MCHC 31.6 L RDW 15.4 H RDW Differential 53.1 H Plt Count 165 MPV 9.1 Immature Gran % (Auto) 0.300 Neut % (Auto) 71.5 H Lymph % (Auto) 21.5 [place] % (Auto) 4.9 Eos % (Auto) 1.7 Baso % (Auto) 0.1 Absolute Neuts (auto) 10.1 H Absolute Lymphs (auto) 3.03 Total Counted Not Reportable Sodium 137 Potassium 4.2 Chloride 104 Carbon Dioxide 26.0 Anion Gap 7 BUN 8 Creatinine 0.50 L Estim Creat Clear Calc 48.45 Est GFR (MDRD) Af Amer 157 Est GFR (MDRD) Non-Af 130 BUN/Creatinine Ratio 16.0 Glucose 111 H Lactic Acid 1.3 Calcium 8.9 Troponin I < 0.015 B-Natriuretic Peptide 07/14/18 17:31 WBC RBC Hgb Hct MCV MCH MCHC RDW RDW Differential Plt Count MPV Immature Gran % (Auto) Neut % (Auto) Lymph % (Auto) [place] % (Auto) Eos % (Auto) Baso % (Auto) Absolute Neuts (auto) Absolute Lymphs (auto) Total Counted Sodium Potassium Chloride Carbon Dioxide Anion Gap BUN Creatinine Estim Creat Clear Calc Est GFR (MDRD) Af Amer Est GFR (MDRD) Non-Af BUN/Creatinine Ratio Glucose Lactic Acid Calcium Troponin I B-Natriuretic Peptide 42.9 Clinical Impression(s) from Imaging Studies Chest X-Ray 07/14/18 16:50 IMPRESSION: Right basilar infiltrate. Electronically Signed: Tony LindaDO at 17:24 EST Tel [phone], Service support , Pelvis X-Ray 07/14/18 16:50 IMPRESSION: 1. Stable degenerative changes of the left hip without acute abnormality. 2. Stable right total hip arthroplasty. Electronically Signed: Tony LindaDO at 17:23 EST Tel [phone], Service support , Assessment/Plan This is a 67 years old male patient presented to the emergency room because of shortness of breath and cough and she was found to right lower lobe infiltrate on chest x-ray and she is being admitted for healthcare associated pneumonia with SIRS as well as acute on chronic hypoxic respiratory failure. # #1 right lower lobe healthcare associated pneumonia/SIRS: Chest x-ray reviewed as above. Patient is tachycardic, tachypneic and have leukocytosis with neutrophilia. Lactic acid was normal. She is afebrile. Patient was admitted to the hospital on late May,. Plan: Admit to Med[facility] floor, telemetry, blood culture, sputum culture, urinalysis, start IV vancomycin and aztreonam, bronchodilators, inhaled steroids, incentive spirometer, chest physiotherapy, respiratory panel for viruses, repeat CBC and BMP tomorrow morning, PT OT evaluation and treatment. #2 acute on chronic hypoxic respiratory failure: Secondary to above in addition to history of COPD and obstructive sleep apnea. Patient has been on oxygen at home at 2 L. After she got out of the bed in the ED, she required up to 4 L of oxygen. Plan: Bronchodilators, IV antibiotics, inhaled steroids, incentive spirometer as above. #3 hypertension: Blood pressure stable, continue home medications. #4 seizure disorder: Continue Dilantin, Trileptal and phenobarbital. #5 chronic pain syndrome: Continue Neurontin, methadone and Restoril. #6 depression: Stable, continue risperidone and Remeron. #7 restless leg syndrome: Continue Requip. #8 tobacco abuse: Nicotine patch if desired. #9 obstructive sleep apnea: Noncompliant with CPAP and she is on home oxygen. #10 DVT prophylaxis: Subcu Lovenox. This note was generated with [employer]ation software. It may contain incorrect words, spelling, and punctuation that were not noted in checking the note before signing. Code Visit Inpatient E&M: 55124 Init Hosp L3
--- NOTE | 2018-07-14 18:41 | HP.PCM_ITS ---
Problem List (1) Tobacco use Status: Chronic (2) Depression Status: Chronic Qualifiers: (3) Insomnia Status: Chronic Qualifiers: Comment: She takes Temazepam every night for sleep, prescribed by Dr. Veliz (4) Hypertension Status: Chronic Qualifiers: (5) Physical debility Status: Chronic (6) Degenerative disc disease, lumbar Status: Chronic (7) Seizure disorder Status: Chronic (8) Restless leg syndrome Status: Chronic (9) COPD (chronic obstructive pulmonary disease) Status: Chronic Qualifiers: Comment: 1 ppd now smoker 4 ppd (10) Obstructive sleep apnea Status: Chronic Comment: non-compliant with CPAP but has oxygen to wear at n ight History of Present Illness Date of Admission: 07/14/18 Chief Complaint: Shortness of breath. The patient is a 67 year old F with past medical history as mentioned above presented to the emergency room because of shortness of breath and cough. Her symptoms started to worsen for the last couple of days, getting more short of breath than usual, mainly with activity, minimally relieved with rest, associated with productive cough with minimal sputum as well as occasional wheezes. She mentioned that yesterday, she was dizzy and she felt on her buttocks and she has been having some intermittent discomfort and pain. She denies chest pain, palpitation, syncope or presyncope. She denied abdominal pain, nausea or vomiting. She denied urinary symptoms. She denies fever or chills. In the emergency department, patient was afebrile, tachycardic, blood pressure was stable and pulse ox was 88% on room air, improved to 97% on 3 L. When I saw the patient and because she was on the bedside commode, her pulse ox was 93% on 4 L after she came back to the bed. Her routine blood work was remarkable for leukocytosis with neutrophilia, otherwise normal. Lactic acid was normal. BNP and troponin was negative. EKG revealed normal sinus rhythm without evidence of acute ischemic changes or cardiac arrhythmias. Chest x-ray revealed right lower lobe infiltrate. She is being Pepcid for right lower lobe healthcare associated pneumonia with SIRS and acute on chronic hypoxic respiratory failure. Past Medical History Past Medical History (Chronic Problems): Chronic Problems (Last Updated 07/14/18 @ 18:36 by Judson Hyman MD) Tobacco use (Chronic) History of right hip replacement (Chronic) S/P laparoscopic cholecystectomy (Chronic) S/P appendectomy (Chronic) Depression (Chronic) Insomnia (Chronic) She takes Temazepam every night for sleep, prescribed by Dr. Veliz Hypertension (Chronic) Physical debility (Chronic) Degenerative disc disease, lumbar (Chronic) Pain, chronic (Chronic) Seizure disorder (Chronic) Restless leg syndrome (Chronic) COPD (chronic obstructive pulmonary disease) (Chronic) 1 ppd now smoker 4 ppd Obstructive sleep apnea (Chronic) non-compliant with CPAP but has oxygen to wear at night Smokes with greater than 40 pack year history (Chronic) Medical History: Medical History (Last Updated 07/14/18 @ 18:36 by Judson Hyman MD) Depression (Chronic) F32.9 Insomnia (Chronic) G47.00 She takes Temazepam every night for sleep, prescribed by Dr. Veliz Hypertension (Chronic) I10 Physical debility (Chronic) R53.81 Degenerative disc disease, lumbar (Chronic) M51.36 Pain, chronic (Chronic) G89.29 Seizure disorder (Chronic) G40.909 Restless leg syndrome (Chronic) COPD (chronic obstructive pulmonary disease) (Chronic) J44.9 1 ppd now smoker 4 ppd Obstructive sleep apnea (Chronic) G47.33 non-compliant with CPAP but has oxygen to wear at night Smokes with greater than 40 pack year history (Chronic) F17.210 Allergies Penicillins Allergy (Verified 03/19/18 20:21) Anaphylaxis codeine Adverse Reaction (Verified 03/19/18 20:21) Nausea Home Medications: Ambulatory Orders Medication Instructions Recorded Albuterol Aerosols [Ventolin 2.5 mg INHALATION Q6H PRN 05/12/16 Aerosols] Alendronate Sodium [Fosamax] 70 mg PO FR 05/12/16 Etodolac 400 mg PO BID 05/12/16 Fluticasone/Salmeterol [Advair 2 puff INHALATION BID 05/12/16 250/50 Mcg Diskus] Gabapentin [Neurontin] 300 mg PO 4X/DAY 05/12/16 Temazepam [Restoril] 30 mg PO QHS 06/24/17 Mirtazapine [Remeron] 15 mg PO QHS 07/03/17 Latanoprost 0.005% [Xalatan 1 drp EACH EYE QHS 07/04/17 Opthalmic] Methadone HCl 10 mg PO TID 09/04/17 Ergocalciferol [Vitamin D] 50,000 units PO MO 11/07/17 Phenobarbital 32.4 mg PO BID 11/07/17 Pravastatin [Pravachol] 40 mg PO QHS 11/07/17 Acetaminophen [Tylenol Tablet] 650 mg PO Q6H PRN PRN tablet 03/07/18 Aspirin [Aspirin, Baby] 81 mg PO DAILY@0800 tab.chew 03/07/18 Sennosides/Docusate Sodium 2 each PO BID 04/03/18 [Senna-Docusate Sodium Tablet] Clotrimazole 1 applic TOPICAL PRN PRN 06/13/18 Melatonin 10 mg PO QHS 06/13/18 Oxcarbazepine [Trileptal] 600 mg PO BID 06/13/18 Phenytoin Sodium Extended 100 mg PO 4X/DAY 06/13/18 [Dilantin] Ranitidine HCl [Zantac] 300 mg PO DAILY 06/13/18 Risperidone 0.25 mg PO DAILY 06/13/18 Ropinirole HCl [Requip] 2 mg PO DAILY 06/13/18 Tolterodine Tartrate [Detrol LA] 4 mg PO DAILY 06/13/18 Albuterol Sulfate [Ventolin Hfa] 2 puff INHALATION BID 07/14/18 Multivitamin with Minerals 1 tab PO DAILY 07/14/18 [Multiple Vitamin] Potassium Chloride [Klor-Con M10] 10 meq PO DAILY 07/14/18 Surgical History: Surgical History (Last Updated 07/14/18 @ 18:35 by Judson Hyman MD) History of right hip replacement (Chronic) Z96.641 S/P laparoscopic cholecystectomy (Chronic) Z90.49 S/P appendectomy (Chronic) Z90.49 Surgical History: appendectomy, cholecystectomy, - - Fractured right ankle, carpal tunnel surgery, removal of teeth, right ovariectomy and fallopian tube removal. 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 Lives: Alone Smoking Status: Current some day smoker Tobacco Use: Cigarettes Alcohol: None Drugs: None - *Family History Maternal Family History: Family History (Last Reviewed 06/13/18 @ 22:00 by Yunior Heaton MD) Mother Diabetes Heart disease Hypertension CAD (coronary artery disease) CVA (cerebral vascular accident) History Items: Diabetes Paternal Family History: Family History (Last Reviewed 06/13/18 @ 22:00 by Yunior Heaton MD) Mother Diabetes Heart disease Hypertension CAD (coronary artery disease) CVA (cerebral vascular accident) History Items: Cancer - colon Sibling Family History: Family History (Last Reviewed 06/13/18 @ 22:00 by Yunior Heaton MD) Mother Diabetes Heart disease Hypertension CAD (coronary artery disease) CVA (cerebral vascular accident) History Items: No pertinent history Review of Systems Constitutional: Reports: Anorexia, Weakness. Denies: Chills, Fever, Fatigue Eyes: Denies: Blurred vision, Double vision, Drainage, Redness HEENT: Denies: Difficulty Hearing, Ear Pain, Eye Pain, Nasal Congestion, Sore Throat Cardiovascular: Denies: Chest Pain, Chest Pressure, Chest Tightness, Edema, Heaviness, Palpitations, Syncope Respiratory: Reports: Cough, Shortness of Breath, Shortness of breath upon exertion, Sputum production, Wheezing. Denies: Pleuritic Pain Gastrointestinal: Denies: Abdominal Pain, Constipation, Diarrhea, Nausea, Vomiting Genitourinary: Denies: Dysuria, Frequency, Hematuria Musculoskeletal: Denies: Arm Pain, Back Pain, Foot Pain Skin: Denies: Dryness, Rash Neurological: Denies: Balance problems, Double vision, Change in Speech, Slurred speech, Confusion, Headaches, Incoordination, Numbness Psychiatric: Reports: Depression. Denies: Anxiety Endocrine: Denies: Change in Body Habitus, Polydipsia VTE Information - Inpt Only VTE Present on Admission: No VTE Mechan Device Prophylaxis: None VTE Pharm Prophylaxis ordered?: Yes - Physical Exam General: Alert, Oriented x3, Cooperative, - - Short of breath, tachypneic, anxious. HEENT: Atraumatic, PERRLA, EOMI, Normocephalic Oral: Moist Mucosa, No Gingival or Mucosal Lesions/ Ulcerations Neck: Supple, No JVD, Negative Carotid Bruits, Trachea Midline, Thyroid Normal Size and Texture Lungs: Clear to auscultation, Diminished, Rhonchi, Short of Breath, Tachypneic, - - Decreased breath sounds bilateral, diffuse bilateral rhonchi, crackles and bronchial breathing on the right base. Cardiovascular: Regular rate, Regular Rhythm, Normal S1, Normal S2, PMI Normal, Tachycardic Abdomen: Bowel Sounds Present, Soft, Non Tender, Non-Distended, No Hepato- splenomegaly Extremities: No clubbing, No cyanosis, No edema Skin: No rashes, No breakdown Lymphatic: No Cervical, Supraclavicular, or Inguinal Adenopathy Neurological: Cranial nerves II-XII grossly intact, Motor Exam 5/5 strength throughout Psych/Mental Status: Normal Affect, Anxious, Alert and oriented to time, place, person, mood and affect Vital Signs Temp Pulse Resp BP Pulse Ox 99.9 F H 110 H 20 H 168/108 H 95 07/14/18 18:32 07/14/18 18:32 07/14/18 18:32 07/14/18 18:32 07/14/18 18:32 Oxygen Flow Rate (L/min) 4 Oxygen Delivery Method Nasal Cannula Weight: 171 lb 8.314 oz Body Mass Index (BMI) 28.5 Microbiology Past 72 Hours 07/14/18 16:20 Influenza Types A,B Direct FA (JASWANT) - Final Mucosa - Nose Laboratory Tests Past 24 Hrs 07/14/18 07/14/18 07/14/18 17:01 17:12 17:31 WBC 14.1 H RBC 4.04 L Hgb 12.5 Hct 39.5 MCV 97.8 MCH 30.9 MCHC 31.6 L RDW 15.4 H RDW Differential 53.1 H Plt Count 165 MPV 9.1 Immature Gran % (Auto) 0.300 Neut % (Auto) 71.5 H Lymph % (Auto) 21.5 [place] % (Auto) 4.9 Eos % (Auto) 1.7 Baso % (Auto) 0.1 Absolute Neuts (auto) 10.1 H Absolute Lymphs (auto) 3.03 Total Counted Not Reportable Sodium 137 Potassium 4.2 Chloride 104 Carbon Dioxide 26.0 Anion Gap 7 BUN 8 Creatinine 0.50 L Estim Creat Clear Calc 48.45 Est GFR (MDRD) Af Amer 157 Est GFR (MDRD) Non-Af 130 BUN/Creatinine Ratio 16.0 Glucose 111 H Lactic Acid 1.3 Calcium 8.9 Troponin I < 0.015 B-Natriuretic Peptide 07/14/18 17:31 WBC RBC Hgb Hct MCV MCH MCHC RDW RDW Differential Plt Count MPV Immature Gran % (Auto) Neut % (Auto) Lymph % (Auto) [place] % (Auto) Eos % (Auto) Baso % (Auto) Absolute Neuts (auto) Absolute Lymphs (auto) Total Counted Sodium Potassium Chloride Carbon Dioxide Anion Gap BUN Creatinine Estim Creat Clear Calc Est GFR (MDRD) Af Amer Est GFR (MDRD) Non-Af BUN/Creatinine Ratio Glucose Lactic Acid Calcium Troponin I B-Natriuretic Peptide 42.9 Clinical Impression(s) from Imaging Studies Chest X-Ray 07/14/18 16:50 IMPRESSION: Right basilar infiltrate. Electronically Signed: Tony LindaDO at 17:24 EST Tel [phone], Service support , Pelvis X-Ray 07/14/18 16:50 IMPRESSION: 1. Stable degenerative changes of the left hip without acute abnormality. 2. Stable right total hip arthroplasty. Electronically Signed: Tony Mckeon DO at 17:23 EST Tel [phone], Service support , Assessment/Plan This is a 67 years old male patient presented to the emergency room because of shortness of breath and cough and she was found to right lower lobe infiltrate on chest x-ray and she is being admitted for healthcare associated pneumonia with SIRS as well as acute on chronic hypoxic respiratory failure. # #1 right lower lobe healthcare associated pneumonia/SIRS: Chest x-ray reviewed as above. Patient is tachycardic, tachypneic and have leukocytosis with neutrop hilia. Lactic acid was normal. She is afebrile. Patient was admitted to the hospital on late May,. Plan: Admit to Medr floor, telemetry, blood culture, sputum culture, urinalysis, start IV vancomycin and aztreonam, bronchodilators, inhaled steroids, incentive spirometer, chest physiotherapy, respiratory panel for viruses, repeat CBC and BMP tomorrow morning, PT OT evaluation and treatment. #2 acute on chronic hypoxic respiratory failure: Secondary to above in addition to history of COPD and obstructive sleep apnea. Patient has been on oxygen at home at 2 L. After she got out of the bed in the ED, she required up to 4 L of oxygen. Plan: Bronchodilators, IV antibiotics, inhaled steroids, incentive spirometer as above. #3 hypertension: Blood pressure stable, continue home medications. #4 seizure disorder: Continue Dilantin, Trileptal and phenobarbital. #5 chronic pain syndrome: Continue Neurontin, methadone and Restoril. #6 depression: Stable, continue risperidone and Remeron. #7 restless leg syndrome: Continue Requip. #8 tobacco abuse: Nicotine patch if desired. #9 obstructive sleep apnea: Noncompliant with CPAP and she is on home oxygen. #10 DVT prophylaxis: Subcu Lovenox. This note was generated with [employer] dictation software. It may contain incorrect words, spelling, and punctuation that were not noted in checking the note before signing. Code Visit Inpatient E&M: 64899 Init Hosp L3
[2018-07-14] MEDS: Budesonide Respules 0.5 MG/2 ML AMPUL.NEB. INHALATION (20:21)
--- NOTE | 2018-07-14 20:37 | NURSING ---
pt refusing seizure precautions
--- NOTE | 2018-07-14 20:54 | PCM.RX.CS ---
Consult Pharmacy has been consulted to manage selected antiobiotic: Vancomycin Type of Consult: New start Suspected Infection: Pneumonia Prior Doses of Antibiotics Received/Current Regimen: VANCOMYCIN 1250MG IV X1 07/14/18 @2031 Labs: Sodium 137 mmol/L (136-145) 07/14/18 17:01 Potassium 4.2 mmol/L (3.5-5.1) 07/14/18 17:01 Chloride 104 mmol/L (98-107) 07/14/18 17:01 Carbon Dioxide 26.0 mmol/L (21.0-32.0) 07/14/18 17:01 Anion Gap 7 (5-15) 07/14/18 17:01 BUN 8 mg/dL (7-18) 07/14/18 17:01 Creatinine 0.50 mg/dL (0.55-1.02) L 07/14/18 17:01 Est GFR (MDRD) Af Amer 157 mL/min (>60) 07/14/18 17:01 Est GFR (MDRD) Non-Af 130 mL/min (>60) 07/14/18 17:01 BUN/Creatinine Ratio 16.0 RATIO (10-20) 07/14/18 17:01 Glucose 111 mg/dL (74-106) H 07/14/18 17:01 Microbiology: Microbiology 07/14/18 16:20 Mucosa - Nose Influenza Types A,B Direct FA (JASWANT) - Final Weight used for dosin kg Estimated Creatinine Clearance: 48ML/MIN Goal Trough: 15-20 mcg/mL Pharmacy Plan for Drug Dosing: PLAN/RECOMMENDATIONS 1. Vancomycin 500mg IV Q12hrs to start 07/15/18 @0800 2. Trough scheduled 07/16/18 @0730 3.Pharmacy Service will continue to monitor and adjust dosing as required.
[2018-07-14] MEDS: Etodolac 200 MG Capsule 400 MG PO (22:00)
[2018-07-14] MEDS: Senna/Docusate Sodium 1 Tablet 2 TABLET PO (22:00)
[2018-07-14] MEDS: OXcarbazepine 600 MG Tablet PO (22:01)
[2018-07-14] MEDS: RisperiDONE 0.25 MG Tablet PO (22:01)
[2018-07-14] MEDS: Pravastatin 40 MG Tablet PO (22:01)
[2018-07-14] MEDS: Phenytoin Na 100 MG Capsule PO (22:01)
[2018-07-14] MEDS: Pramipexole Di-HCl 1 MG Tablet PO (22:01)
[2018-07-14] MEDS: Gabapentin 300 MG Capsule PO (22:01)
[2018-07-14] MEDS: Temazepam 15 MG Capsule 30 MG PO (22:04)
[2018-07-14] MEDS: Phenobarbital 32.4 MG Tablet PO (22:04)
[2018-07-14] MEDS: guaiFENesin 1,200 MG Tablet 1200 MG PO (22:04)
[2018-07-14] MEDS: Mirtazapine 15 MG Tablet PO (22:05)
[2018-07-14] MEDS: Methadone 10 MG Tablet PO (22:05)
[2018-07-14] MEDS: Latanoprost 0.005% 1 Bottle 1 DRP EACH EYE (22:15)
[2018-07-14] MEDS: MELATONIN 10 MG TABLET PO (22:20)
[2018-07-15] VITALS (17 sets, daily range): BP systolic 104–113; BP diastolic 50–62; PULSE 70–102; RESP 18–26; TEMP 36.9–37.6; O2SAT 94–97
[2018-07-15] MEDS: Ipratropium/Albuterol Sulfate 3 ML AMPUL.NEB INHALATION ×5 (02:03→22:38)
[2018-07-15 05:35] LABS: Color, Urine Yellow (Yellow); Glucose, Dipstick Normal (Normal); Ketone-Dipstick 50 mg/dl (Negative); Leukocyte Esterase-Dipstick 25 /ul (Negative); Nitrite-Dipstick Negative (Negative); Occult Blood-Urine Negative /ul (Negative); Protein-Dipstick 15 mg/dl (Negative); Urine Clarity Sl. Cloudy (Clear); Urine Urobilinogen Normal (Normal)
[2018-07-15 05:55] LABS: Urine Bilirubin Dipstick 3 mg/dL (Negative)
[2018-07-15] MEDS: Methadone 10 MG Tablet PO ×3 (06:18→21:19)
[2018-07-15 07:03] LABS: Absolute Lymphocyte Count 1.54 X10^3/ul (0.83-4.51); Absolute Neutrophil Count 7.7 X10^3/uL (2.0-7.7); Basophil# 0.01 X10^3/uL; Basophil% 0.1 % (0-1); Eosinophil# 0.03 X10^3/uL; Eosinophils% 0.3 % (0-5); Hemoglobin 10.3 g/dl (12.0-15.0); Lymphocyte # 1.54 X10^3/ul (4.0); Lymphocyte % 15.5 % (19-41); Mean Corp Hgb Conc 32.2 g/gl (32-36); Mean Corpuscular Hgb 30.8 pg (27.0-32.0); Mean Corpuscular Volume 95.8 fL (81-99); Mean Platelet Vol. 8.6 fl (6.2-12.0); Neutrophil # 7.72 X10^3/uL (2.7-7.7); Neutrophil % 77.9 % (47-70); Platelet Count 157 K/mm3 (150-450); RBC Distribution Width CV 15.6 % (11.6-14.6); RBC Distribution Width SD 54.8 fl (35.1-43.9); Red Blood Count 3.34 M/mm3 (4.2-5.4); White Blood Count 9.9 K/mm3 (4.4-11.0)
[2018-07-15 07:08] LABS: POSITIVE COUNT NO; POSITIVE DIFFERENTIAL NO; POSITIVE MORPHOLOGY NO
[2018-07-15 07:24] LABS: Anion Gap 9 (5-15); BUN 9 mg/dL (7-18); BUN/Creat Ratio 20.9 RATIO (10-20); Calcium,Total 8.1 mg/dL (8.5-10.1); Chloride 108 mmol/L (98-107); Creatinine, Serum 0.43 mg/dL (0.55-1.02); EST Glomerular Filtration Rate 154 mL/min (>60); Est Glom Filt Rate - Afr Amer 187 mL/min (>60); Estimated Creatinine Clearance 48.45 ml/min; Glucose 114 mg/dL (74-106); Potassium 3.4 mmol/L (3.5-5.1); Sodium Level 142 mmol/L (136-145)
[2018-07-15] MEDS: Vancomycin IV 500 MG/100 ML BAG 100 MG IV ×2 (08:19→20:04)
[2018-07-15] MEDS: Enoxaparin 40 MG/0.4 ML Syringe SC (09:00)
[2018-07-15] MEDS: Etodolac 200 MG Capsule 400 MG PO ×2 (09:00→21:18)
[2018-07-15] MEDS: Gabapentin 300 MG Capsule PO ×4 (09:00→21:18)
[2018-07-15] MEDS: Famotidine 20 MG Tablet PO (09:00)
[2018-07-15] MEDS: Phenytoin Na 100 MG Capsule PO ×4 (09:00→21:18)
[2018-07-15] MEDS: Phenobarbital 32.4 MG Tablet PO ×2 (09:00→21:19)
[2018-07-15] MEDS: Senna/Docusate Sodium 1 Tablet 2 TABLET PO ×2 (09:00→21:18)
[2018-07-15] MEDS: OXcarbazepine 600 MG Tablet PO ×2 (09:00→21:18)
[2018-07-15] MEDS: Tolterodine Tartrate 4 MG CAP.SA PO (09:00)
[2018-07-15] MEDS: guaiFENesin 1,200 MG Tablet 1200 MG PO ×2 (09:00→21:19)
[2018-07-15] MEDS: Aspirin 81 MG TAB.CHEW PO (09:00)
--- NOTE | 2018-07-15 09:19 | PCM.PN.HOSP ---
Subjective: Doing okay states she is a little bit improved from admission though she still is requiring oxygen at 2 L nasal cannula. Denies any chest pain, fevers or chills. Vitals/I&O's: Vital Signs Temp Pulse Resp BP Pulse Ox 98.7 F 75 18 104/60 96 07/15/18 09:00 07/15/18 09:00 07/15/18 09:00 07/15/18 09:00 07/15/18 09:00 Oxygen Flow Rate (L/min) 2 Oxygen Delivery Method Nasal Cannula Weight: 156 lb 11.2 oz Body Mass Index (BMI) 26.0 Intake and Output for Last 24 Hours 07/13/18 07/14/18 07/15/18 23:59 23:59 23:59 Intake Total 932 / 932 Output Total 150 / 150 Balance 782 / 782 General: Alert, Oriented x3, Cooperative, No apparent distress HEENT: Atraumatic, EOMI, Normocephalic Oral: Moist Mucosa Neck: Supple, No JVD, Trachea Midline Lungs: Clear to auscultation, Normal air movement, No rhonchi, No wheeze, No rales, Diminished Cardiovascular: Regular rate, Regular Rhythm, Normal S1, Normal S2, No murmurs, No rub noted, No Gallop Abdomen: Soft, Non Tender, Non-Distended, No Hepato-splenomegaly Extremities: No edema, Capillary Refill Less than 3 Seconds Skin: No rashes, No breakdown Neurological: Neuro grossly intact, Sensory exam intact to light touch and pain Psych/Mental Status: Normal Affect, Appropriate Microbiology Past 72 Hours 07/15/18 05:15 Urine Catheter - Catheter Streptococcus pneumoniae Antigen (M - Final 07/15/18 05:15 Urine Catheter - Catheter Legionella Antigen - Final 07/14/18 16:20 Mucosa - Nose Influenza Types A,B Direct FA (JASWANT) - Final Laboratory Results 07/14/18 17:01: Sodium 137, Potassium 4.2, Chloride 104, Carbon Dioxide 26.0, Anion Gap 7, BUN 8, Creatinine 0.50 L, Estim Creat Clear Calc 48.45, Est GFR (MDRD) Af Amer 157, Est GFR (MDRD) Non-Af 130, BUN/Creatinine Ratio 16.0, Glucose 111 H, Calcium 8.9, Troponin I < 0.015 07/14/18 17:12: WBC 14.1 H, RBC 4.04 L, Hgb 12.5, Hct 39.5, MCV 97.8, MCH 30.9, MCHC 31.6 L, RDW 15.4 H, RDW Differential 53.1 H, Plt Count 165, MPV 9.1, Immature Gran % (Auto) 0.300, Neut % (Auto) 71.5 H, Lymph % (Auto) 21.5, [place] % (Auto) 4.9, Eos % (Auto) 1.7, Baso % (Auto) 0.1, Absolute Neuts (auto) 10.1 H, Absolute Lymphs (auto) 3.03, Total Counted Not Reportable 07/14/18 17:31: Lactic Acid 1.3 07/14/18 17:31: B-Natriuretic Peptide 42.9 07/15/18 05:15: Urine Color Yellow, Urine Clarity Sl. Cloudy, Urine pH 6.0, Ur Specific [place] 1.020, Urine Protein 15 H, Urine Glucose (UA) Normal, Urine Ketones 50 H, Urine Occult Blood Negative, Urine Nitrite Negative, Urine Bilirubin 3 H, Urine Urobilinogen Normal, Ur Leukocyte Esterase 25 H 07/15/18 06:40: Sodium 142, Potassium 3.4 L, Chloride 108 H, Carbon Dioxide 25.0, Anion Gap 9, BUN 9, Creatinine 0.43 L, Estim Creat Clear Calc 48.45, Est GFR (MDRD) Af Amer 187, Est GFR (MDRD) Non-Af 154, BUN/Creatinine Ratio 20.9 H, Glucose 114 H, Calcium 8.1 L 07/15/18 06:40: WBC 9.9, RBC 3.34 L, Hgb 10.3 L, Hct 32.0 L, MCV 95.8, MCH 30.8, MCHC 32.2, RDW 15.6 H, RDW Differential 54.8 H, Plt Count 157, MPV 8.6, Immature Gran % (Auto) 0.200, Neut % (Auto) 77.9 H, Lymph % (Auto) 15.5 L, [place] % (Auto) 6.0, Eos % (Auto) 0.3, Baso % (Auto) 0.1, Absolute Neuts (auto) 7.7, Absolute Lymphs (auto) 1.54, Total Counted Not Reportable Current Medications Acetaminophen (Tylenol) 650 mg PO Q4H PRN PRN PRN Reason: FEVER Albuterol Sulfate (Ventolin Aerosols) 2.5 mg INHALATION Q2H PRN PRN PRN Reason: SHORTNESS OF BREATH Albuterol/Ipratropium (Duoneb) 3 ml INHALATION Q4H.RT [facility] Last Admin: 07/15/18 07:15 Dose: Not Given Aspirin (Aspirin, Baby) 81 mg PO DAILY@0800 [facility] Last Admin: 07/15/18 09:00 Dose: 81 mg Budesonide (Pulmicort Aerosol) 0.5 mg INHALATION BID.RT [facility] Last Admin: 07/15/18 07:15 Dose: Not Given Enoxaparin Sodium (Lovenox) 40 mg SC DAILY@1000 [facility] Last Admin: 07/15/18 09:00 Dose: 40 mg Etodolac (Lodine) 400 mg PO BID [facility] Last Admin: 07/15/18 09:00 Dose: 400 mg Famotidine (Pepcid) 20 mg PO DAILY [facility] Last Admin: 07/15/18 09:00 Dose: 20 mg Gabapentin (Neurontin) 300 mg PO 4X/DAY [facility] Last Admin: 07/15/18 09:00 Dose: 300 mg Guaifenesin (Mucinex) 1,200 mg PO BID [facility] Last Admin: 07/15/18 09:00 Dose: 1,200 mg Aztreonam 2 gm/ Sodium (Chloride) 100 mls @ 150 mls/hr IV Q8 [facility] Last Admin: 07/15/18 06:15 Dose: 150 mls/hr Vancomycin IV Pharmacy to Dose (1 ea/ Sodium Chloride) 500 mls @ 250 mls/hr IV PRN PRN; Protocol PRN Reason: Rx to Dose Vancomycin HCl () 500 mg in 100 mls @ 100 mls/hr IV Q12H [facility] Last Admin: 07/15/18 08:19 Dose: 100 mls/hr Latanoprost (Xalatan Opthalmic) 1 drop EACH EYE QHS [facility] Last Admin: 07/14/18 22:15 Dose: 1 drop Magnesium Hydroxide (Milk Of Magnesia) 30 ml PO DAILY PRN PRN PRN Reason: Constipation Melatonin (Melatonin) 10 mg PO QHS [facility] Last Admin: 07/14/18 22:20 Dose: 10 mg Methadone HCl () 10 mg PO TID [facility] Last Admin: 07/15/18 06:18 Dose: 10 mg Mirtazapine (Remeron) 15 mg PO QHS [facility] Last Admin: 07/14/18 22:05 Dose: 15 mg Nutritional Formula (Lactose Free) (Ensure Enlive) 120 ml PO 4X/DAY [facility] Last Admin: 07/15/18 09:00 Dose: 120 ml Ondansetron HCl (Zofran) 4 mg IV Q8H PRN PRN PRN Reason: NAUSEA Oxcarbazepine (Trileptal) 600 mg PO BID [facility] Last Admin: 07/15/18 09:00 Dose: 600 mg Phenobarbital (Phenobarbital) 32.4 mg PO BID [facility] Last Admin: 07/15/18 09:00 Dose: 32.4 mg Phenytoin Sodium (Dilantin) 100 mg PO 4X/DAY [facility] Last Admin: 07/15/18 09:00 Dose: 100 mg Pramipexole Dihydrochloride (Mirapex) 1 mg PO QHS [facility] Last Admin: 07/14/18 22:01 Dose: 1 mg Pravastatin Sodium (Pravachol) 40 mg PO QHS [facility] Last Admin: 07/14/18 22:01 Dose: 40 mg Risperidone (Risperdal) 0.25 mg PO QHS [facility] Last Admin: 07/14/18 22:01 Dose: 0.25 mg Senna/Docusate Sodium (Senokot-S, Clotilde-Colace) 2 tablet PO BID [facility] Last Admin: 07/15/18 09:00 Dose: 2 tablet Sodium Chloride () 5 - 15 ml IV UD PRN PRN Reason: SALINE FLUSH Temazepam (Restoril) 30 mg PO QHS [facility] Last Admin: 07/14/18 22:04 Dose: 30 mg Tolterodine Tartrate (Detrol La) 4 mg PO DAILY [facility] Last Admin: 07/15/18 09:00 Dose: 4 mg Medical Necessity - Tobacco Use Smoking Status: Current some day smoker Tobacco Use: Cigarettes Assessment/Plan 1. Acute on chronic hypoxic respiratory failure secondary to healthcare associated pneumonia/COPD/CHUY -Initially on 4 L of oxygen currently down to 2 L nasal cannula -She has anaphylaxis to penicillins therefore she is on vancomycin and aztreonam -We will obtain an MRSA screen, and if negative can discontinue the vancomycin and possibly transition to Levaquin as a single oral agent on discharge -We will continue with her home inhalers -Legionella antigen and strep antigen as well as influenza screen are all negative 2. Seizure disorder -Currently stable -Continue with her Dilantin, Trileptal, and phenobarbital 3. Depression/chronic pain syndrome/restless leg syndrome -Stable -Continue with all of her home medications 4. HTN -Stable -Continue home medications 5. Tobacco abuse -Advised cessation and discussed strategies -Nicotine patch if necessary DVT: Lovenox Code Visit Inpatient E&M: 92075 Subs Hosp L2
--- NOTE | 2018-07-15 09:25 | PN_ITS ---
Subjective: Doing okay states she is a little bit improved from admission though she still is requiring oxygen at 2 L nasal cannula. Denies any chest pain, fevers or chills. Vitals/I&O's: Vital Signs Temp Pulse Resp BP Pulse Ox 98.7 F 75 18 104/60 96 07/15/18 09:00 07/15/18 09:00 07/15/18 09:00 07/15/18 09:00 07/15/18 09:00 Oxygen Flow Rate (L/min) 2 Oxygen Delivery Method Nasal Cannula Weight: 156 lb 11.2 oz Body Mass Index (BMI) 26.0 Intake and Output for Last 24 Hours 07/13/18 07/14/18 07/15/18 23:59 23:59 23:59 Intake Total 932 / 932 Output Total 150 / 150 Balance 782 / 782 General: Alert, Oriented x3, Cooperative, No apparent distress HEENT: Atraumatic, EOMI, Normocephalic Oral: Moist Mucosa Neck: Supple, No JVD, Trachea Midline Lungs: Clear to auscultation, Normal air movement, No rhonchi, No wheeze, No rales, Diminished Cardiovascular: Regular rate, Regular Rhythm, Normal S1, Normal S2, No murmurs, No rub noted, No Gallop Abdomen: Soft, Non Tender, Non-Distended, No Hepato-splenomegaly Extremities: No edema, Capillary Refill Less than 3 Seconds Skin: No rashes, No breakdown Neurological: Neuro grossly intact, Sensory exam intact to light touch and pain Psych/Mental Status: Normal Affect, Appropriate Microbiology Past 72 Hours 07/15/18 05:15 Urine Catheter - Catheter Streptococcus pneumoniae Antigen (M - Final 07/15/18 05:15 Urine Catheter - Catheter Legionella Antigen - Final 07/14/18 16:20 Mucosa - Nose Influenza Types A,B Direct FA (JASWANT) - Final Laboratory Results 07/14/18 17:01: Sodium 137, Potassium 4.2, Chloride 104, Carbon Dioxide 26.0, Anion Gap 7, BUN 8, Creatinine 0.50 L, Estim Creat Clear Calc 48.45, Est GFR (MDRD) Af Amer 157, Est GFR (MDRD) Non-Af 130, BUN/Creatinine Ratio 16.0, Glucose 111 H, Calcium 8.9, Troponin I < 0.015 07/14/18 17:12: WBC 14.1 H, RBC 4.04 L, Hgb 12.5, Hct 39.5, MCV 97.8, MCH 30.9, MCHC 31.6 L, RDW 15.4 H, RDW Differential 53.1 H, Plt Count 165, MPV 9.1, Immature Gran % (Auto) 0.300, Neut % (Auto) 71.5 H, Lymph % (Auto) 21.5, Saunders % (Auto) 4.9, Eos % (Auto) 1.7, Baso % (Auto) 0.1, Absolute Neuts (auto) 10.1 H, Absolute Lymphs (auto) 3.03, Total Counted Not Reportable 07/14/18 17:31: Lactic Acid 1.3 07/14/18 17:31: B-Natriuretic Peptide 42.9 07/15/18 05:15: Urine Color Yellow, Urine Clarity Sl. Cloudy, Urine pH 6.0, Ur Specific Bovina 1.020, Urine Protein 15 H, Urine Glucose (UA) Normal, Urine Ketones 50 H, Urine Occult Blood Negative, Urine Nitrite Negative, Urine Bilirubin 3 H, Urine Urobilinogen Normal, Ur Leukocyte Esterase 25 H 07/15/18 06:40: Sodium 142, Potassium 3.4 L, Chloride 108 H, Carbon Dioxide 25.0, Anion Gap 9, BUN 9, Creatinine 0.43 L, Estim Creat Clear Calc 48.45, Est GFR (MDRD) Af Amer 187, Est GFR (MDRD) Non-Af 154, BUN/Creatinine Ratio 20.9 H, Glucose 114 H, Calcium 8.1 L 07/15/18 06:40: WBC 9.9, RBC 3.34 L, Hgb 10.3 L, Hct 32.0 L, MCV 95.8, MCH 30.8, MCHC 32.2, RDW 15.6 H, RDW Differential 54.8 H, Plt Count 157, MPV 8.6, Immature Gran % (Auto) 0.200, Neut % (Auto) 77.9 H, Lymph % (Auto) 15.5 L, Saunders % (Auto) 6.0, Eos % (Auto) 0.3, Baso % (Auto) 0.1, Absolute Neuts (auto) 7.7, Absolute Lymphs (auto) 1.54, Total Counted Not Reportable Current Medications Acetaminophen (Tylenol) 650 mg PO Q4H PRN PRN PRN Reason: FEVER Albuterol Sulfate (Ventolin Aerosols) 2.5 mg INHALATION Q2H PRN PRN PRN Reason: SHORTNESS OF BREATH Albuterol/Ipratropium (Duoneb) 3 ml INHALATION Q4H.RT [facility] Last Admin: 07/15/18 07:15 Dose: Not Given Aspirin (Aspirin, Baby) 81 mg PO DAILY@0800 [facility] Last Admin: 07/15/18 09:00 Dose: 81 mg Budesonide (Pulmicort Aerosol) 0.5 mg INHALATION BID.RT [facility] Last Admin: 07/15/18 07:15 Dose: Not Given Enoxaparin Sodium (Lovenox) 40 mg SC DAILY@1000 [facility] Last Admin: 07/15/18 09:00 Dose: 40 mg Etodolac (Lodine) 400 mg PO BID [facility] Last Admin: 07/15/18 09:00 Dose: 400 mg Famotidine (Pepcid) 20 mg PO DAILY [facility] Last Admin: 07/15/18 09:00 Dose: 20 mg Gabapentin (Neurontin) 300 mg PO 4X/DAY [facility] Last Admin: 07/15/18 09:00 Dose: 300 mg Guaifenesin (Mucinex) 1,200 mg PO BID [facility] Last Admin: 07/15/18 09:00 Dose: 1,200 mg Aztreonam 2 gm/ Sodium (Chloride) 100 mls @ 150 mls/hr IV Q8 [facility] Last Admin: 07/15/18 06:15 Dose: 150 mls/hr Vancomycin IV Pharmacy to Dose (1 ea/ Sodium Chloride) 500 mls @ 250 mls/hr IV PRN PRN; Protocol PRN Reason: Rx to Dose Vancomycin HCl () 500 mg in 100 mls @ 100 mls/hr IV Q12H [facility] Last Admin: 07/15/18 08:19 Dose: 100 mls/hr Latanoprost (Xalatan Opthalmic) 1 drop EACH EYE QHS [facility] Last Admin: 07/14/18 22:15 Dose: 1 drop Magnesium Hydroxide (Milk Of Magnesia) 30 ml PO DAILY PRN PRN PRN Reason: Constipation Melatonin (Melatonin) 10 mg PO QHS [facility] Last Admin: 07/14/18 22:20 Dose: 10 mg Methadone HCl () 10 mg PO TID [facility] Last Admin: 07/15/18 06:18 Dose: 10 mg Mirtazapine (Remeron) 15 mg PO QHS [facility] Last Admin: 07/14/18 22:05 Dose: 15 mg Nutritional Formula (Lactose Free) (Ensure Enlive) 120 ml PO 4X/DAY [facility] Last Admin: 07/15/18 09:00 Dose: 120 ml Ondansetron HCl (Zofran) 4 mg IV Q8H PRN PRN PRN Reason: NAUSEA Oxcarbazepine (Trileptal) 600 mg PO BID [facility] Last Admin: 07/15/18 09:00 Dose: 600 mg Phenobarbital (Phenobarbital) 32.4 mg PO BID [facility] Last Admin: 07/15/18 09:00 Dose: 32.4 mg Phenytoin Sodium (Dilantin) 100 mg PO 4X/DAY [facility] Last Admin: 07/15/18 09:00 Dose: 100 mg Pramipexole Dihydrochloride (Mirapex) 1 mg PO QHS [facility] Last Admin: 07/14/18 22:01 Dose: 1 mg Pravastatin Sodium (Pravachol) 40 mg PO QHS [facility] Last Admin: 07/14/18 22:01 Dose: 40 mg Risperidone (Risperdal) 0.25 mg PO QHS [facility] Last Admin: 07/14/18 22:01 Dose: 0.25 mg Senna/Docusate Sodium (Senokot-S, Clotilde-Colace) 2 tablet PO BID [facility] Last Admin: 07/15/18 09:00 Dose: 2 tablet Sodium Chloride () 5 - 15 ml IV UD PRN PRN Reason: SALINE FLUSH Temazepam (Restoril) 30 mg PO QHS [facility] Last Admin: 07/14/18 22:04 Dose: 30 mg Tolterodine Tartrate (Detrol La) 4 mg PO DAILY [facility] Last Admin: 07/15/18 09:00 Dose: 4 mg Medical Necessity - Tobacco Use Smoking Status: Current some day smoker Tobacco Use: Cigarettes Assessment/Plan 1. Acute on chronic hypoxic respiratory failure secondary to healthcare associated pneumonia/COPD/CHUY -Initially on 4 L of oxygen currently down to 2 L nasal cannula -She has anaphylaxis to penicillins therefore she is on vancomycin and aztreonam -We will obtain an MRSA screen, and if negative can discontinue the vancomycin and possibly transition to Levaquin as a single oral agent on discharge -We will continue with her home inhalers -Legionella antigen and strep antigen as well as influenza screen are all negative 2. Seizure disorder -Currently stable -Continue with her Dilantin, Trileptal, and phenobarbital 3. Depression/chronic pain syndrome/restless leg syndrome -Stable -Continue with all of her home medications 4. HTN -Stable -Continue home medications 5. Tobacco abuse -Advised cessation and discussed strategies -Nicotine patch if necessary DVT: Lovenox Code Visit Inpatient E&M: 89297 Subs Hosp L2
--- NOTE | 2018-07-15 11:30 | CASEMGMT ---
Addendum entered by Cheyanne Tamayo 07/15/18 14:09: Patient has been to [facility] and [facility] in the past. Original Note: RN CM Face to Face with patient for initial transition planning/care coordination assessment. RN CM introduced self and role at [facility]. Patient lying in bed, alert and oriented. Patient willing to participate in assessment and is able to answer all questions appropriately. Care providers, pharmacy, and demographics verified. Patient wishes to discharge home, denies need for home health at this time. Patient states she has no further needs or concerns at this time. CM to follow for discharge planning needs that may arise. PCP: Jose Alfredo Specialists: None Preferred [facility]acy: [facility] Insurance: [employer] [facility] Prescription Benefit: Yes Living Will/HPOA: Yes son Yaakov Sandoval LNOK: Son Living Arrangements: Patient lives alone in apartment with elevator. [facility]. DME/HHC: Patient has shower chair, raised toilet, grab bars, rollator, nebulizer, Oyxgen through [facility] while sleeping. Patient has Passport services with [facility]. Aides 3 hrs/day 5 days/week through [employer]. Disposition Plan: Patient to discharge home with resumption of aide services, family support, and follow-up plans inplace. Cheyanne LARSON, RN, CM
[2018-07-15] MEDS: Albuterol 2.5 MG/3 ML VIAL.NEB. INHALATION (13:10)
[2018-07-15 13:45] LABS: M R Staph aureus DNA By PCR Negative (Negative); Probe Check PASS; Specimen Processing Control PASS
--- NOTE | 2018-07-15 16:45 | CASEMGMT ---
Social Work MS3 Report received from RN YOSHI about initial assessment and patient being a current Waiver Client with the [facility]. Beata Chen is the worker. Called [facility] at and left message or Beata with an update. Left this board writer's and Cheyanne Manning's number if Beata needs an update after the weekend on patient's status in the hospital. -CRISTIANO Dougherty, SCRAP HOOKER
[2018-07-15] MEDS: Mirtazapine 15 MG Tablet PO (21:18)
[2018-07-15] MEDS: Pravastatin 40 MG Tablet PO (21:18)
[2018-07-15] MEDS: Pramipexole Di-HCl 1 MG Tablet PO (21:18)
[2018-07-15] MEDS: RisperiDONE 0.25 MG Tablet PO (21:18)
[2018-07-15] MEDS: Latanoprost 0.005% 1 Bottle 1 DRP EACH EYE (21:19)
[2018-07-15] MEDS: Temazepam 15 MG Capsule 30 MG PO (21:19)
[2018-07-15] MEDS: MELATONIN 10 MG TABLET PO (21:19)
[2018-07-15] MEDS: 0.9% NaCl Peripheral Flush Adult/Peds IV (22:31)
[2018-07-16] VITALS (19 sets, daily range): BP systolic 92–149; BP diastolic 51–77; PULSE 73–92; RESP 16–20; TEMP 36.9–37.2; O2SAT 94–96
[2018-07-16] MEDS: Methadone 10 MG Tablet PO ×3 (05:31→21:45)
[2018-07-16 06:07] LABS: Anion Gap 8 (5-15); BUN 11 mg/dL (7-18); BUN/Creat Ratio 24.1 RATIO (10-20); Calcium,Total 8.4 mg/dL (8.5-10.1); Chloride 106 mmol/L (98-107); Creatinine, Serum 0.46 mg/dL (0.55-1.02); EST Glomerular Filtration Rate 145 mL/min (>60); Est Glom Filt Rate - Afr Amer 175 mL/min (>60); Estimated Creatinine Clearance 48.45 ml/min; Glucose 136 mg/dL (74-106); Potassium 4.1 mmol/L (3.5-5.1); Sodium Level 142 mmol/L (136-145)
[2018-07-16] MEDS: Ipratropium/Albuterol Sulfate 3 ML AMPUL.NEB INHALATION ×4 (07:15→22:49)
[2018-07-16] MEDS: Budesonide Respules 0.5 MG/2 ML AMPUL.NEB. INHALATION ×2 (07:15→19:40)
[2018-07-16] MEDS: 0.9% NaCl IVPB Med Flush (250 mL) 15 ML IV (07:23)
--- NOTE | 2018-07-16 08:04 | PCM.PN.HOSP ---
Subjective: States that she is having more difficult time breathing today, denies any fevers or chills. No chest pain. Vitals/I&O's: Vital Signs Temp Pulse Resp BP Pulse Ox 98.9 F 77 16 113/70 96 07/16/18 05:29 07/16/18 07:15 07/16/18 07:15 07/16/18 05:29 07/16/18 05:29 Oxygen Flow Rate (L/min) 2 Oxygen Delivery Method Nasal Cannula Weight: 156 lb 11.203 oz Body Mass Index (BMI) 26.0 Intake and Output for Last 24 Hours 07/14/18 07/15/18 07/16/18 23:59 23:59 23:59 Intake Total 2035 / 2035 655 / 655 Output Total 150 / 150 Balance 188 / 1885 655 / 655 General: Alert, Oriented x3, Cooperative, No apparent distress HEENT: Atraumatic, EOMI, Normocephalic Oral: Moist Mucosa Neck: Supple, No JVD, Trachea Midline Lungs: Poor air movement with wheezing throughout, no rhonchi, No rales, Diminished Cardiovascular: Regular rate, Regular Rhythm, Normal S1, Normal S2, No murmurs, No rub noted, No Gallop Abdomen: Soft, Non Tender, Non-Distended, No Hepato-splenomegaly Extremities: No edema, Capillary Refill Less than 3 Seconds Skin: No rashes, No breakdown Neurological: Neuro grossly intact, Sensory exam intact to light touch and pain Psych/Mental Status: Normal Affect, Appropriate Microbiology Past 72 Hours 07/14/18 16:20 Mucosa - Nasopharyngeal Respiratory Panel (PCR) - Final 07/15/18 05:15 Urine Catheter - Catheter Streptococcus pneumoniae Antigen (M - Final 07/15/18 05:15 Urine Catheter - Catheter Legionella Antigen - Final 07/14/18 16:20 Mucosa - Nose Influenza Types A,B Direct FA (JASWANT) - Final Laboratory Results 07/15/18 10:55: MRSA (PCR) Negative 07/16/18 05:36: Sodium 142, Potassium 4.1, Chloride 106, Carbon Dioxide 28.0, Anion Gap 8, BUN 11, Creatinine 0.46 L, Estim Creat Clear Calc 48.45, Est GFR (MDRD) Af Amer 175, Est GFR (MDRD) Non-Af 145, BUN/Creatinine Ratio 24.1 H, Glucose 136 H, Calcium 8.4 L 07/16/18 07:12: Vancomycin Trough Cancelled Current Medications Acetaminophen (Tylenol) 650 mg PO Q4H PRN PRN PRN Reason: FEVER Albuterol Sulfate (Ventolin Aerosols) 2.5 mg INHALATION Q2H PRN PRN PRN Reason: SHORTNESS OF BREATH Last Admin: 07/15/18 13:10 Dose: 2.5 mg Albuterol/Ipratropium (Duoneb) 3 ml INHALATION Q4H.RT [facility] Last Admin: 07/16/18 07:15 Dose: 3 ml Aspirin (Aspirin, Baby) 81 mg PO DAILY@0800 [facility] Last Admin: 07/15/18 09:00 Dose: 81 mg Budesonide (Pulmicort Aerosol) 0.5 mg INHALATION BID.RT [facility] Last Admin: 07/16/18 07:15 Dose: 0.5 mg Enoxaparin Sodium (Lovenox) 40 mg SC DAILY@1000 [facility] Last Admin: 07/15/18 09:00 Dose: 40 mg Etodolac (Lodine) 400 mg PO BID [facility] Last Admin: 07/15/18 21:18 Dose: 400 mg Famotidine (Pepcid) 20 mg PO DAILY [facility] Last Admin: 07/15/18 09:00 Dose: 20 mg Gabapentin (Neurontin) 300 mg PO 4X/DAY [facility] Last Admin: 07/15/18 21:18 Dose: 300 mg Guaifenesin (Mucinex) 1,200 mg PO BID [facility] Last Admin: 07/15/18 21:19 Dose: 1,200 mg Aztreonam 2 gm/ Sodium (Chloride) 100 mls @ 150 mls/hr IV Q8 [facility] Last Admin: 07/16/18 05:31 Dose: 150 mls/hr Sodium Chloride () 250 mls @ 15 mls/hr IV .[id number] PRN PRN Reason: SALINE FLUSH Last Admin: 07/16/18 07:23 Dose: 15 mls/hr Levofloxacin (Levaquin Iv) 750 mg in 150 mls @ 100 mls/hr IV Q48 [facility] Latanoprost (Xalatan Opthalmic) 1 drop EACH EYE QHS [facility] Last Admin: 07/15/18 21:19 Dose: 1 drop Magnesium Hydroxide (Milk Of Magnesia) 30 ml PO DAILY PRN PRN PRN Reason: Constipation Melatonin (Melatonin) 10 mg PO QHS [facility] Last Admin: 07/15/18 21:19 Dose: 10 mg Methadone HCl () 10 mg PO TID [facility] Last Admin: 07/16/18 05:31 Dose: 10 mg Methylprednisolone (Solu-Medrol) 40 mg IV Q8 [facility] Mirtazapine (Remeron) 15 mg PO QHS [facility] Last Admin: 07/15/18 21:18 Dose: 15 mg Nutritional Formula (Lactose Free) (Ensure Enlive) 120 ml PO 4X/DAY [facility] Last Admin: 07/15/18 21:19 Dose: 120 ml Ondansetron HCl (Zofran) 4 mg IV Q8H PRN PRN PRN Reason: NAUSEA Oxcarbazepine (Trileptal) 600 mg PO BID [facility] Last Admin: 07/15/18 21:18 Dose: 600 mg Phenobarbital (Phenobarbital) 32.4 mg PO BID [facility] Last Admin: 07/15/18 21:19 Dose: 32.4 mg Phenytoin Sodium (Dilantin) 100 mg PO 4X/DAY [facility] Last Admin: 07/15/18 21:18 Dose: 100 mg Pramipexole Dihydrochloride (Mirapex) 1 mg PO QHS [facility] Last Admin: 07/15/18 21:18 Dose: 1 mg Pravastatin Sodium (Pravachol) 40 mg PO QHS [facility] Last Admin: 07/15/18 21:18 Dose: 40 mg Risperidone (Risperdal) 0.25 mg PO QHS [facility] Last Admin: 07/15/18 21:18 Dose: 0.25 mg Senna/Docusate Sodium (Senokot-S, Clotilde-Colace) 2 tablet PO BID [facility] Last Admin: 07/15/18 21:18 Dose: 2 tablet Sodium Chloride () 5 - 15 ml IV UD PRN PRN Reason: SALINE FLUSH Last Admin: 07/15/18 22:31 Dose: 10 ml Temazepam (Restoril) 30 mg PO QHS [facility] Last Admin: 07/15/18 21:19 Dose: 30 mg Tolterodine Tartrate (Detrol La) 4 mg PO DAILY [facility] Last Admin: 07/15/18 09:00 Dose: 4 mg Medical Necessity - Tobacco Use Smoking Status: Current some day smoker Tobacco Use: Cigarettes Assessment/Plan 1. Acute on chronic hypoxic respiratory failure secondary to healthcare associated pneumonia/COPD exacerbation/CHUY -Initially on 4 L of oxygen currently down to 2 L nasal cannula -MRSA screen is negative will DC vancomycin and transition to Levaquin every 48 -We will continue with her home inhalers, and will add Solu-Medrol for what appears to be a COPD exacerbation currently. -Legionella antigen and strep antigen as well as influenza screen are all negative 2. Seizure disorder -Currently stable -Continue with her Dilantin, Trileptal, and phenobarbital 3. Depression/chronic pain syndrome/restless leg syndrome -Stable -Continue with all of her home medications 4. HTN -Stable -Continue home medications 5. Tobacco abuse -Advised cessation and discussed strategies -Nicotine patch if necessary DVT: Lovenox Code Visit Inpatient E&M: 87555 Subs Hosp L2
[2018-07-16] MEDS: Senna/Docusate Sodium 1 Tablet 2 TABLET PO ×2 (09:25→21:36)
[2018-07-16] MEDS: Phenytoin Na 100 MG Capsule PO ×4 (09:25→21:33)
[2018-07-16] MEDS: Tolterodine Tartrate 4 MG CAP.SA PO (09:25)
[2018-07-16] MEDS: Phenobarbital 32.4 MG Tablet PO ×2 (09:25→21:45)
[2018-07-16] MEDS: guaiFENesin 1,200 MG Tablet 1200 MG PO ×2 (09:25→21:33)
[2018-07-16] MEDS: Etodolac 200 MG Capsule 400 MG PO ×2 (09:25→21:34)
[2018-07-16] MEDS: Enoxaparin 40 MG/0.4 ML Syringe SC (09:25)
[2018-07-16] MEDS: OXcarbazepine 600 MG Tablet PO ×2 (09:25→21:36)
[2018-07-16] MEDS: Aspirin 81 MG TAB.CHEW PO (09:25)
[2018-07-16] MEDS: Gabapentin 300 MG Capsule PO ×4 (09:25→21:35)
[2018-07-16] MEDS: Famotidine 20 MG Tablet PO (09:25)
[2018-07-16] MEDS: levoFLOXacin IV 750 MG/150 ML BAG 100 MG IV (11:40)
[2018-07-16] MEDS: Ondansetron 4 MG/2 ML Vial IV (11:42)
[2018-07-16 18:41] LABS: Bedside Glucose 165 mg/dL (70-110)
[2018-07-16] MEDS: 0.9% NaCl Peripheral Flush Adult/Peds IV (21:33)
[2018-07-16] MEDS: RisperiDONE 0.25 MG Tablet PO (21:35)
[2018-07-16] MEDS: Pramipexole Di-HCl 1 MG Tablet PO (21:35)
[2018-07-16] MEDS: Mirtazapine 15 MG Tablet PO (21:35)
[2018-07-16] MEDS: Pravastatin 40 MG Tablet PO (21:35)
[2018-07-16] MEDS: Latanoprost 0.005% 1 Bottle 1 DRP EACH EYE (21:36)
[2018-07-16] MEDS: MELATONIN 10 MG TABLET PO (21:45)
[2018-07-16] MEDS: Temazepam 15 MG Capsule 30 MG PO (21:45)
[2018-07-17] VITALS (12 sets, daily range): BP systolic 105–117; BP diastolic 59–73; PULSE 71–86; RESP 16–20; TEMP 36.6–37; O2SAT 95–97
[2018-07-17] MEDS: 0.9% NaCl IVPB Med Flush (250 mL) 15 ML IV (03:06)
[2018-07-17] MEDS: Ipratropium/Albuterol Sulfate 3 ML AMPUL.NEB INHALATION ×6 (03:10→23:27)
[2018-07-17] MEDS: Methadone 10 MG Tablet PO ×3 (05:51→21:46)
[2018-07-17] MEDS: 0.9% NaCl Peripheral Flush Adult/Peds IV ×2 (05:52→21:48)
[2018-07-17] MEDS: BENZOCAINE/MENTHOL 1 LOZENGE MUCOUS MEM (05:56)
[2018-07-17] MEDS: Budesonide Respules 0.5 MG/2 ML AMPUL.NEB. INHALATION ×2 (07:16→19:10)
[2018-07-17] MEDS: Phenytoin Na 100 MG Capsule PO ×4 (08:49→21:46)
[2018-07-17] MEDS: Gabapentin 300 MG Capsule PO ×4 (08:49→21:46)
[2018-07-17] MEDS: Etodolac 200 MG Capsule 400 MG PO ×2 (08:49→21:46)
[2018-07-17] MEDS: Senna/Docusate Sodium 1 Tablet 2 TABLET PO ×2 (08:49→21:55)
[2018-07-17] MEDS: Famotidine 20 MG Tablet PO (08:50)
[2018-07-17] MEDS: Tolterodine Tartrate 4 MG CAP.SA PO (08:50)
[2018-07-17] MEDS: OXcarbazepine 600 MG Tablet PO ×2 (08:50→21:46)
[2018-07-17] MEDS: guaiFENesin 1,200 MG Tablet 1200 MG PO ×2 (08:50→21:46)
[2018-07-17] MEDS: Aspirin 81 MG TAB.CHEW PO (08:50)
[2018-07-17] MEDS: Enoxaparin 40 MG/0.4 ML Syringe SC (08:57)
[2018-07-17] MEDS: Phenobarbital 32.4 MG Tablet PO ×2 (08:57→21:55)
[2018-07-17] MEDS: Acetaminophen 325 MG Tablet 650 MG PO (08:57)
--- NOTE | 2018-07-17 09:42 | CASEMGMT ---
Social Work Note HCPOA and LW printed from pt's e-chart and placed on pt's chart. Cheyanne Cee DELIVERY ENGINEER, STRAIGHT RULING MACHINE OPERATOR
--- NOTE | 2018-07-17 10:39 | PCM.PN.HOSP ---
Subjective: Patient is a 67-year-old lady recently discharged from the hospital following admission for upper respiratory tract infection secondary to RSV who presented with progressive shortness of breath imaging studies on admission demonstrated right basilar infiltrate consistent with healthcare associated pneumonia. Patient was also found to be wheezing Objective: GENERAL: cooperative HEENT: Atraumatic; moist oral mucosa EYES; Anicteric, Normal Conjunctiva NECK; supple, normal thyroid, no distended JVD. RESPIRATORY: Diminished to auscultation bilaterally, CARDIOVASCULAR: Regular S1 S2, no audible murmurs GI: soft, non-tender, normoactive bowel sounds, : No Renal angle tenderness; EXTREMITIES: No edema, no clubbing, no cyanosis. MUSCULOSKELETAL: No Joint Tenderness; no muscle waisting NEURO: Awake; no lateralizing signs. SKIN: No Rash PSYCH; Normal affect Vitals/I&O's: Vital Signs Temp Pulse Resp BP Pulse Ox 98.3 F 84 18 117/73 95 07/17/18 08:55 07/17/18 08:55 07/17/18 08:55 07/17/18 08:55 07/17/18 08:55 Oxygen Flow Rate (L/min) 2 Oxygen Delivery Method Nasal Cannula Weight: 71.078 kg Body Mass Index (BMI) 26.0 Intake and Output for Last 24 Hours 07/15/18 07/16/18 07/17/18 23:59 23:59 23:59 Intake Total 2035 / 2035 2066 / 2066 187 / 187 Output Total 150 / 150 400 / 400 200 / 200 Balance 1886 / 1886 1667 / 1667 -13 / -13 Microbiology Past 72 Hours 07/14/18 16:20 Mucosa - Nasopharyngeal Respiratory Panel (PCR) - Final 07/15/18 05:15 Urine Catheter - Catheter Streptococcus pneumoniae Antigen (M - Final 07/15/18 05:15 Urine Catheter - Catheter Legionella Antigen - Final 07/14/18 16:20 Mucosa - Nose Influenza Types A,B Direct FA (JASWANT) - Final Laboratory Results 07/16/18 18:24: POC Glucose 165 H Current Medications Acetaminophen (Tylenol) 650 mg PO Q4H PRN PRN PRN Reason: FEVER Last Admin: 07/17/18 08:57 Dose: 650 mg Albuterol Sulfate (Ventolin Aerosols) 2.5 mg INHALATION Q2H PRN PRN PRN Reason: SHORTNESS OF BREATH Last Admin: 07/15/18 13:10 Dose: 2.5 mg Albuterol/Ipratropium (Duoneb) 3 ml INHALATION Q4H.RT [facility] Last Admin: 07/17/18 07:16 Dose: 3 ml Aspirin (Aspirin, Baby) 81 mg PO DAILY@0800 [facility] Last Admin: 07/17/18 08:50 Dose: 81 mg Budesonide (Pulmicort Aerosol) 0.5 mg INHALATION BID.RT [facility] Last Admin: 07/17/18 07:16 Dose: 0.5 mg Enoxaparin Sodium (Lovenox) 40 mg SC DAILY@1000 [facility] Last Admin: 07/17/18 08:57 Dose: 40 mg Etodolac (Lodine) 400 mg PO BID [facility] Last Admin: 07/17/18 08:49 Dose: 400 mg Famotidine (Pepcid) 20 mg PO DAILY [facility] Last Admin: 07/17/18 08:50 Dose: 20 mg Gabapentin (Neurontin) 300 mg PO 4X/DAY [facility] Last Admin: 07/17/18 08:49 Dose: 300 mg Guaifenesin (Mucinex) 1,200 mg PO BID [facility] Last Admin: 07/17/18 08:50 Dose: 1,200 mg Sodium Chloride () 250 mls @ 15 mls/hr IV .[id number] PRN PRN Reason: SALINE FLUSH Last Admin: 07/17/18 03:06 Dose: 15 mls/hr Levofloxacin (Levaquin Iv) 750 mg in 150 mls @ 100 mls/hr IV Q48 [facility] Last Admin: 07/16/18 11:40 Dose: 100 mls/hr Latanoprost (Xalatan Opthalmic) 1 drop EACH EYE QHS [facility] Last Admin: 07/16/18 21:36 Dose: 1 drop Magnesium Hydroxide (Milk Of Magnesia) 30 ml PO DAILY PRN PRN PRN Reason: Constipation Melatonin (Melatonin) 10 mg PO QHS [facility] Last Admin: 07/16/18 21:45 Dose: 10 mg Methadone HCl () 10 mg PO TID [facility] Last Admin: 07/17/18 05:51 Dose: 10 mg Methylprednisolone (Solu-Medrol) 40 mg IV Q8 [facility] Last Admin: 07/17/18 05:51 Dose: 40 mg Mirtazapine (Remeron) 15 mg PO QHS [facility] Last Admin: 07/16/18 21:35 Dose: 15 mg Nutritional Formula (Lactose Free) (Ensure Enlive) 120 ml PO 4X/DAY [facility] Last Admin: 07/17/18 08:57 Dose: 120 ml Ondansetron HCl (Zofran) 4 mg IV Q8H PRN PRN PRN Reason: NAUSEA Last Admin: 07/16/18 11:42 Dose: 4 mg Oxcarbazepine (Trileptal) 600 mg PO BID [facility] Last Admin: 07/17/18 08:50 Dose: 600 mg Phenobarbital (Phenobarbital) 32.4 mg PO BID [facility] Last Admin: 07/17/18 08:57 Dose: 32.4 mg Phenytoin Sodium (Dilantin) 100 mg PO 4X/DAY [facility] Last Admin: 07/17/18 08:49 Dose: 100 mg Pramipexole Dihydrochloride (Mirapex) 1 mg PO QHS [facility] Last Admin: 07/16/18 21:35 Dose: 1 mg Pravastatin Sodium (Pravachol) 40 mg PO QHS [facility] Last Admin: 07/16/18 21:35 Dose: 40 mg Risperidone (Risperdal) 0.25 mg PO QHS [facility] Last Admin: 07/16/18 21:35 Dose: 0.25 mg Senna/Docusate Sodium (Senokot-S, Clotilde-Colace) 2 tablet PO BID [facility] Last Admin: 07/17/18 08:49 Dose: 2 tablet Sodium Chloride () 5 - 15 ml IV UD PRN PRN Reason: SALINE FLUSH Last Admin: 07/17/18 05:52 Dose: 5 ml Temazepam (Restoril) 30 mg PO QHS [facility] Last Admin: 07/16/18 21:45 Dose: 30 mg Throat Lozenges (Cepacol Sore Throat Lozenge) 1 lozenge MUCOUS MEM Q2H PRN PRN PRN Reason: SORE THROAT Last Admin: 07/17/18 05:56 Dose: 1 lozenge Tolterodine Tartrate (Detrol La) 4 mg PO DAILY [facility] Last Admin: 07/17/18 08:50 Dose: 4 mg Medical Necessity - Tobacco Use Smoking Status: Current some day smoker Tobacco Use: Cigarettes Assessment/Plan Patient is a 67-year-old lady recently discharged from the hospital following admission for upper respiratory tract infection secondary to RSV who presented with progressive shortness of breath imaging studies on admission demonstrated right basilar infiltrate consistent with healthcare associated pneumonia. Patient was also found to be wheezing 1. Acute on chronic hypoxic respiratory failure secondary to healthcare associated pneumonia/COPD exacerbation/CHUY 2. Healthcare associated pneumonia with suspected gram-negative organisms patient was initially managed with broad-spectrum antibiotics which has since been scaled down to Levaquin. Remains significantly dyspneic at rest on supplemental oxygen 3. COPD with acute exacerbation secondary to above age with systemic steroid antibiotics and aerosol treatment 4. Seizure disorder: Patient is on Dilantin and Trileptal as well as phenobarbital did continue 5. Depression with previous history of suicidal ideation 6. Chronic pain syndrome 7. Dyslipidemia-patient is on statin therapy, continued at home dose 8. Hypertension: Blood pressure stable 9. GERD 10. Tobacco dependence counseled on cessation, offered nicotine patch for tobacco cravings 11. DVT: Lovenox Active Medications Acetaminophen (Tylenol) 650 mg PO Q4H PRN PRN PRN Reason: FEVER Last Admin: 07/17/18 08:57 Dose: 650 mg Albuterol Sulfate (Ventolin Aerosols) 2.5 mg INHALATION Q2H PRN PRN PRN Reason: SHORTNESS OF BREATH Last Admin: 07/15/18 13:10 Dose: 2.5 mg Albuterol/Ipratropium (Duoneb) 3 ml INHALATION Q4H.RT [facility] Last Admin: 07/17/18 07:16 Dose: 3 ml Aspirin (Aspirin, Baby) 81 mg PO DAILY@0800 [facility] Last Admin: 07/17/18 08:50 Dose: 81 mg Budesonide (Pulmicort Aerosol) 0.5 mg INHALATION BID.RT [facility] Last Admin: 07/17/18 07:16 Dose: 0.5 mg Enoxaparin Sodium (Lovenox) 40 mg SC DAILY@1000 [facility] Last Admin: 07/17/18 08:57 Dose: 40 mg Etodolac (Lodine) 400 mg PO BID [facility] Last Admin: 07/17/18 08:49 Dose: 400 mg Famotidine (Pepcid) 20 mg PO DAILY [facility] Last Admin: 07/17/18 08:50 Dose: 20 mg Gabapentin (Neurontin) 300 mg PO 4X/DAY [facility] Last Admin: 07/17/18 08:49 Dose: 300 mg Guaifenesin (Mucinex) 1,200 mg PO BID [facility] Last Admin: 07/17/18 08:50 Dose: 1,200 mg Sodium Chloride () 250 mls @ 15 mls/hr IV .[id number] PRN PRN Reason: SALINE FLUSH Last Admin: 07/17/18 03:06 Dose: 15 mls/hr Levofloxacin (Levaquin Iv) 750 mg in 150 mls @ 100 mls/hr IV Q48 [facility] Last Admin: 07/16/18 11:40 Dose: 100 mls/hr Latanoprost (Xalatan Opthalmic) 1 drop EACH EYE QHS [facility] Last Admin: 07/16/18 21:36 Dose: 1 drop Magnesium Hydroxide (Milk Of Magnesia) 30 ml PO DAILY PRN PRN PRN Reason: Constipation Melatonin (Melatonin) 10 mg PO QHS [facility] Last Admin: 07/16/18 21:45 Dose: 10 mg Methadone HCl () 10 mg PO TID [facility] Last Admin: 07/17/18 05:51 Dose: 10 mg Methylprednisolone (Solu-Medrol) 40 mg IV Q8 [facility] Last Admin: 07/17/18 05:51 Dose: 40 mg Mirtazapine (Remeron) 15 mg PO QHS [facility] Last Admin: 07/16/18 21:35 Dose: 15 mg Nutritional Formula (Lactose Free) (Ensure Enlive) 120 ml PO 4X/DAY [facility] Last Admin: 07/17/18 08:57 Dose: 120 ml Ondansetron HCl (Zofran) 4 mg IV Q8H PRN PRN PRN Reason: NAUSEA Last Admin: 07/16/18 11:42 Dose: 4 mg Oxcarbazepine (Trileptal) 600 mg PO BID [facility] Last Admin: 07/17/18 08:50 Dose: 600 mg Phenobarbital (Phenobarbital) 32.4 mg PO BID [facility] Last Admin: 07/17/18 08:57 Dose: 32.4 mg Phenytoin Sodium (Dilantin) 100 mg PO 4X/DAY [facility] Last Admin: 07/17/18 08:49 Dose: 100 mg Pramipexole Dihydrochloride (Mirapex) 1 mg PO QHS [facility] Last Admin: 07/16/18 21:35 Dose: 1 mg Pravastatin Sodium (Pravachol) 40 mg PO QHS [facility] Last Admin: 07/16/18 21:35 Dose: 40 mg Risperidone (Risperdal) 0.25 mg PO QHS [facility] Last Admin: 07/16/18 21:35 Dose: 0.25 mg Senna/Docusate Sodium (Senokot-S, Clotilde-Colace) 2 tablet PO BID [facility] Last Admin: 07/17/18 08:49 Dose: 2 tablet Sodium Chloride () 5 - 15 ml IV UD PRN PRN Reason: SALINE FLUSH Last Admin: 07/17/18 05:52 Dose: 5 ml Temazepam (Restoril) 30 mg PO QHS [facility] Last Admin: 07/16/18 21:45 Dose: 30 mg Throat Lozenges (Cepacol Sore Throat Lozenge) 1 lozenge MUCOUS MEM Q2H PRN PRN PRN Reason: SORE THROAT Last Admin: 07/17/18 05:56 Dose: 1 lozenge Tolterodine Tartrate (Detrol La) 4 mg PO DAILY [facility] Last Admin: 07/17/18 08:50 Dose: 4 mg Clinical Impression(s) from Imaging Studies Chest X-Ray 07/14/18 16:50 IMPRESSION: Right basilar infiltrate. Electronically Signed: Tony Mckeon DO at 17:24 EST Tel [phone], Service support , Pelvis X-Ray 07/14/18 16:50 IMPRESSION: 1. Stable degenerative changes of the left hip without acute abnormality. 2. Stable right total hip arthroplasty. Electronically Signed: Tony Mckeon DO at 17:23 EST Tel [phone], Service support , Code Visit Inpatient E&M: 57217 Subs Hosp L3
--- NOTE | 2018-07-17 13:54 | CASEMGMT ---
ERIC BELLE reviewed and spoke with therapy, recommending potential placement for additional therapy. Patient ambulated 20ft min assist. ERIC BELLE spoke with patient regarding therapy and recommendation for SNF at discharge. Patient is wishing to discharge to home and is agreeable to [facility] for SN, PT, OT. Patient would like [facility]. ERIC BELLE encouraged patient to continue to work with therapy and ambulating further. Patient states that it is more difficult for her to ambulate with FWW, she uses a rollator at home. ERIC BELLE continued to encourage patient to work with therapy. Referral sent to [facility] awaiting acceptance. ERIC BELLE updated therapy on encouragement to participate more.
[2018-07-17] MEDS: Ondansetron 4 MG/2 ML Vial IV (17:34)
[2018-07-17] MEDS: Temazepam 15 MG Capsule 30 MG PO (21:46)
[2018-07-17] MEDS: Pramipexole Di-HCl 1 MG Tablet PO (21:46)
[2018-07-17] MEDS: Mirtazapine 15 MG Tablet PO (21:46)
[2018-07-17] MEDS: Pravastatin 40 MG Tablet PO (21:46)
[2018-07-17] MEDS: RisperiDONE 0.25 MG Tablet PO (21:46)
[2018-07-17] MEDS: MELATONIN 10 MG TABLET PO (21:46)
[2018-07-17] MEDS: Latanoprost 0.005% 1 Bottle 1 DRP EACH EYE (21:55)
[2018-07-18] VITALS (9 sets, daily range): BP systolic 108–146; BP diastolic 56–62; PULSE 73–100; RESP 16–20; TEMP 36.6–37.2; O2SAT 78–97
[2018-07-18] MEDS: Ipratropium/Albuterol Sulfate 3 ML AMPUL.NEB INHALATION ×4 (03:08→14:27)
[2018-07-18] MEDS: 0.9% NaCl Peripheral Flush Adult/Peds IV ×3 (05:06→09:51)
[2018-07-18] MEDS: Methadone 10 MG Tablet PO ×2 (06:17→13:48)
[2018-07-18 07:07] LABS: Hematocrit 36.1 % (37-47); Hemoglobin 11.4 g/dl (12.0-15.0); Mean Corp Hgb Conc 31.6 g/gl (32-36); Mean Corpuscular Hgb 30.6 pg (27.0-32.0); Mean Platelet Vol. 8.5 fl (6.2-12.0); Platelet Count 225 K/mm3 (150-450); RBC Distribution Width SD 51.4 fl (35.1-43.9); Red Blood Count 3.72 M/mm3 (4.2-5.4); White Blood Count 5.4 K/mm3 (4.4-11.0)
[2018-07-18 07:08] LABS: Scan Indicated on CBC? Y/N NO
[2018-07-18 07:24] LABS: Anion Gap 9 (5-15); BUN 15 mg/dL (7-18); BUN/Creat Ratio 37.8 RATIO (10-20); Calcium,Total 8.6 mg/dL (8.5-10.1); Chloride 101 mmol/L (98-107); EST Glomerular Filtration Rate 170 mL/min (>60); Est Glom Filt Rate - Afr Amer 205 mL/min (>60); Estimated Creatinine Clearance 48.45 ml/min; Glucose 137 mg/dL (74-106); Magnesium 2.2 mg/dL (1.6-2.6); Potassium 4.3 mmol/L (3.5-5.1); Sodium Level 139 mmol/L (136-145)
[2018-07-18] MEDS: Ondansetron 4 MG/2 ML Vial IV (08:10)
--- NOTE | 2018-07-18 09:34 | CASEMGMT ---
ERIC BELLE in to discuss discharge plans with patient. Received notification from nursing that patient does not feel safe to go home but states she is not able to go to SNF because she has bills due. RN YOSHI discussed plans with patient. Patient states that she does not feel safe to go home because of her shaking. RN YOSHI discussed possible SNF at discharge. Patient states that she has bills that need to be paid and feels she cannot arrange this while in SNF. RN YOSHI asked if son would be able to bring bills to SNF, patient stated her son is dyslexic and does not know where things are. Patient states that her son wouldn't be able to bring her clothes and TV to SNF due to his car and the drive. RN CM inquired if her friend would be able to help and she states that her friend is her aide and she is not allowed in home if patient is not there. RN CM encouraged patient to work with therapy and to ambulate in hallway. Patient states again that this is difficult because of the FWW, she is use to her rollator. RN YOSHI asked if she will be able to ambulate in home to bathroom and kitchen and patient stated she has a BSC and WC and if she can get to those then she'll be fine. Patient states that she want to go home and will be good with [facility] for SN, PT/OT, and her aide services. RN YOSHI inquired about her oxygen at home states she has concentrator and portability but doesn't know how to use portability. RN CM encouraged patient to ask son to bring in oxygen tank and regulator from home and nursing can instruct on how to use. Patient stated she wasn't going to need oxygen and didn't want her son driving back and forth several times for her. ERIC BELLE inquired with [employer] for patient's script is for and it is 2 lpm at night only. ERIC BELLE updated floor nurse that patient will need home oxygen qualification testing completed. ERIC BELLE will continue to follow this patient and plan for a safe discharge.
[2018-07-18] MEDS: levoFLOXacin IV 750 MG/150 ML BAG 100 MG IV (09:51)
[2018-07-18] MEDS: Senna/Docusate Sodium 1 Tablet 2 TABLET PO (09:51)
[2018-07-18] MEDS: Phenytoin Na 100 MG Capsule PO ×2 (09:52→13:48)
[2018-07-18] MEDS: Tolterodine Tartrate 4 MG CAP.SA PO (09:52)
[2018-07-18] MEDS: Etodolac 200 MG Capsule 400 MG PO (09:52)
[2018-07-18] MEDS: Aspirin 81 MG TAB.CHEW PO (09:52)
[2018-07-18] MEDS: Phenobarbital 32.4 MG Tablet PO (09:52)
[2018-07-18] MEDS: Famotidine 20 MG Tablet PO (09:53)
[2018-07-18] MEDS: guaiFENesin 1,200 MG Tablet 1200 MG PO (09:53)
[2018-07-18] MEDS: Gabapentin 300 MG Capsule PO ×2 (09:53→13:48)
[2018-07-18] MEDS: Enoxaparin 40 MG/0.4 ML Syringe SC (09:53)
[2018-07-18] MEDS: OXcarbazepine 600 MG Tablet PO (09:54)
--- NOTE | 2018-07-18 10:14 | DCINST_ITS ---
You will use the following diet at home:: No restrictions Discharge Activity: May not drive while taking narcotic pain medications. Allergies/Adverse Reactions: Allergies Penicillins Allergy (Verified 03/19/18 20:21) Anaphylaxis codeine Adverse Reaction (Verified 03/19/18 20:21) Nausea Medications to take at Discharge Albuterol Aerosols [Ventolin Aerosols] 2.5 mg INHALATION Q6H PRN 05/12/16 Alendronate Sodium [Fosamax] 70 mg PO FR 05/12/16 Etodolac 400 mg PO BID 05/12/16 Fluticasone/Salmeterol [Advair 250/50 Mcg Diskus] 2 puff INHALATION BID 05/12/16 Gabapentin [Neurontin] 300 mg PO 4X/DAY 05/12/16 Temazepam [Restoril] 30 mg PO QHS 06/24/17 Mirtazapine [Remeron] 15 mg PO QHS 07/03/17 Latanoprost 0.005% [Xalatan Opthalmic] 1 drp EACH EYE QHS 07/04/17 Methadone HCl 10 mg PO TID 09/04/17 Ergocalciferol [Vitamin D] 50,000 units PO MO 11/07/17 Phenobarbital 32.4 mg PO BID 11/07/17 Pravastatin [Pravachol] 40 mg PO QHS 11/07/17 Acetaminophen [Tylenol Tablet] 650 mg PO Q6H PRN PRN tablet 03/07/18 Aspirin [Aspirin, Baby] 81 mg PO DAILY@0800 tab.chew 03/07/18 Sennosides/Docusate Sodium [Senna-Docusate Sodium Tablet] 2 each PO BID 04/03/18 Clotrimazole 1 applic TOPICAL PRN PRN 06/13/18 Melatonin 10 mg PO QHS 06/13/18 Oxcarbazepine [Trileptal] 600 mg PO BID 06/13/18 Phenytoin Sodium Extended [Dilantin] 100 mg PO 4X/DAY 06/13/18 Ranitidine HCl [Zantac] 300 mg PO DAILY 06/13/18 Risperidone 0.25 mg PO DAILY 06/13/18 Ropinirole HCl [Requip] 2 mg PO DAILY 06/13/18 Tolterodine Tartrate [Detrol LA] 4 mg PO DAILY 12/25/18 Albuterol Sulfate [Ventolin Hfa] 2 puff INHALATION BID 07/14/18 Multivitamin with Minerals [Multiple Vitamin] 1 tab PO DAILY 07/14/18 Potassium Chloride [Klor-Con M10] 10 meq PO DAILY 07/14/18 Guaifenesin [Mucinex] 1,200 mg PO BID #14 tablet 07/18/18 levoFLOXacin tablet [Levaquin tablet] 750 mg PO DAILY #3 tablet 07/18/18 The following prescriptions were given: Guaifenesin [Mucinex] 1,200 mg PO BID #14 tablet levoFLOXacin tablet [Levaquin tablet] 750 mg PO DAILY #3 tablet Primary Care Physician: Patel Veliz Chi, MD [Primary Care Provider] - Please follow up with your Primary Care Physician in: in 1-2 weeks Test Results: Test results from this visit will be discussed in further detail at your follow- up appointment, if applicable. Proposed Discharge Date: 07/18/18
--- NOTE | 2018-07-18 10:14 | PCM.DC.SUM ---
Discharge Date and Diagnosis - Problem List Patient Problems: Active and Suspected Problems (Last Updated 07/14/18 @ 18:36 by Judson Hyman MD) HABP (hospital-acquired bacterial pneumonia) (Acute) Date of Admission: 07/14/18 Date of Discharge: 07/18/18 - Primary Discharge Diagnosis Active and Suspected Problems (Last Updated 07/14/18 @ 18:36 by Judson Hyman MD) HABP (hospital-acquired bacterial pneumonia) (Acute) - Secondary Discharge Diagnosis Chronic Problems (Last Updated 07/14/18 @ 18:36 by Judson Hyman MD) Tobacco use (Chronic) History of right hip replacement (Chronic) S/P laparoscopic cholecystectomy (Chronic) S/P appendectomy (Chronic) Depression (Chronic) Insomnia (Chronic) She takes Temazepam every night for sleep, prescribed by Dr. Veliz Hypertension (Chronic) Physical debility (Chronic) Degenerative disc disease, lumbar (Chronic) Pain, chronic (Chronic) Seizure disorder (Chronic) Restless leg syndrome (Chronic) COPD (chronic obstructive pulmonary disease) (Chronic) 1 ppd now smoker 4 ppd Obstructive sleep apnea (Chronic) non-compliant with CPAP but has oxygen to wear at night Smokes with greater than 40 pack year history (Chronic) Hospital Course and Treatment Imaging Results: Clinical Impression(s) from Imaging Studies Chest X-Ray 07/14/18 16:50 IMPRESSION: Right basilar infiltrate. Electronically Signed: Tony Mckeon DO at 17:24 EST Tel [phone], Service support , Pelvis X-Ray 07/14/18 16:50 IMPRESSION: 1. Stable degenerative changes of the left hip without acute abnormality. 2. Stable right total hip arthroplasty. Electronically Signed: Tony Mckeon DO at 17:23 EST Tel [phone], Service support , Operations: None Summary of Care Provided: Patient is a 67-year-old lady recently discharged from the hospital following admission for upper respiratory tract infection secondary to RSV who presented with progressive shortness of breath imaging studies on admission demonstrated right basilar infiltrate consistent with healthcare associated pneumonia. Patient was also found to be wheezing 1. Acute on chronic hypoxic respiratory failure secondary to healthcare associated pneumonia/COPD exacerbation/CHUY patient was assessed for continuous home O2 at baseline which she did qualify patient will need portability since she is mobile both at home as well as in the community 2. Healthcare associated pneumonia with suspected gram-negative organisms patient was initially managed with broad-spectrum antibiotics which has since been scaled down to Levaquin. 3. COPD with acute exacerbation secondary to above age with systemic steroid antibiotics and aerosol treatment 4. Seizure disorder: Patient is on Dilantin and Trileptal as well as phenobarbital did continue 5. Depression with previous history of suicidal ideation 6. Chronic pain syndrome 7. Dyslipidemia-patient is on statin therapy, continued at home dose 8. Hypertension: Blood pressure stable 9. GERD 10. Tobacco dependence counseled on cessation, offered nicotine patch for tobacco cravings 11. DVT prophylaxis: Lovenox Patient Problems: Active and Suspected Problems (Last Updated 07/14/18 @ 18:36 by Judson Hyman MD) HABP (hospital-acquired bacterial pneumonia) (Acute) - Physical Exam General: Cooperative HEENT: Atraumatic Neck: Supple Lungs: Diminished Neurological: Neuro grossly intact Vital Signs Temp Pulse Resp BP Pulse Ox 98.6 F 77 18 108/62 91 07/18/18 09:45 07/18/18 09:45 07/18/18 09:45 07/18/18 09:45 07/18/18 09:45 Oxygen Flow Rate (L/min) 2 Oxygen Delivery Method Room Air Weight: 71.078 kg Body Mass Index (BMI) 26.0 Intake and Output for Last 24 Hours 07/16/18 07/17/18 07/18/18 23:59 23:59 23:59 Intake Total 2067 / 2067 1616 / 1616 120 / 120 Output Total 400 / 400 1700 / 1700 400 / 400 Balance 1667 / 1667 -84 / -84 -280 / -280 Microbiology Past 72 Hours 07/14/18 19:35 Blood Culture - Preliminary Blood Culture (Wb) - Anticubital Right No growth in 48 hours. 07/14/18 16:20 Respiratory Panel (PCR) - Final Mucosa - Nasopharyngeal 07/15/18 05:15 Streptococcus pneumoniae Antigen (M - Final Urine Catheter - Catheter 07/15/18 05:15 Legionella Antigen - Final Urine Catheter - Catheter Laboratory Tests Past 24 Hrs 07/18/18 07/18/18 06:37 06:37 WBC 5.4 RBC 3.72 L Hgb 11.4 L Hct 36.1 L MCV 97.0 MCH 30.6 MCHC 31.6 L RDW 15.0 H RDW Differential 51.4 H Plt Count 225 MPV 8.5 Sodium 139 Potassium 4.3 Chloride 101 Carbon Dioxide 29.0 Anion Gap 9 BUN 15 Creatinine 0.40 L Estim Creat Clear Calc 48.45 Est GFR (MDRD) Af Amer 205 Est GFR (MDRD) Non-Af 170 BUN/Creatinine Ratio 37.8 H Glucose 137 H Calcium 8.6 Magnesium 2.2 Discharge Diet: No Restrictions Discharge Activity: May not drive while taking narcotic pain medications. Home Medications: Medications to take at Discharge Albuterol Aerosols [Ventolin Aerosols] 2.5 mg INHALATION Q6H PRN 05/12/16 Alendronate Sodium [Fosamax] 70 mg PO FR 05/12/16 Etodolac 400 mg PO BID 05/12/16 Fluticasone/Salmeterol [Advair 250/50 Mcg Diskus] 2 puff INHALATION BID 05/12/16 Gabapentin [Neurontin] 300 mg PO 4X/DAY 05/12/16 Temazepam [Restoril] 30 mg PO QHS 06/24/17 Mirtazapine [Remeron] 15 mg PO QHS 07/03/17 Latanoprost 0.005% [Xalatan Opthalmic] 1 drp EACH EYE QHS 07/04/17 Methadone HCl 10 mg PO TID 09/04/17 Ergocalciferol [Vitamin D] 50,000 units PO MO 11/07/17 Phenobarbital 32.4 mg PO BID 11/07/17 Pravastatin [Pravachol] 40 mg PO QHS 11/07/17 Acetaminophen [Tylenol Tablet] 650 mg PO Q6H PRN PRN tablet 03/07/18 Aspirin [Aspirin, Baby] 81 mg PO DAILY@0800 tab.chew 03/07/18 Sennosides/Docusate Sodium [Senna-Docusate Sodium Tablet] 2 each PO BID 04/03/18 Clotrimazole 1 applic TOPICAL PRN PRN 06/13/18 Melatonin 10 mg PO QHS 06/13/18 Oxcarbazepine [Trileptal] 600 mg PO BID 06/13/18 Phenytoin Sodium Extended [Dilantin] 100 mg PO 4X/DAY 06/13/18 Ranitidine HCl [Zantac] 300 mg PO DAILY 06/13/18 Risperidone 0.25 mg PO DAILY 06/13/18 Ropinirole HCl [Requip] 2 mg PO DAILY 06/13/18 Tolterodine Tartrate [Detrol LA] 4 mg PO DAILY 06/13/18 Albuterol Sulfate [Ventolin Hfa] 2 puff INHALATION BID 07/14/18 Multivitamin with Minerals [Multiple Vitamin] 1 tab PO DAILY 07/14/18 Potassium Chloride [Klor-Con M10] 10 meq PO DAILY 07/14/18 Guaifenesin [Mucinex] 1,200 mg PO BID #14 tablet 07/18/18 levoFLOXacin tablet [Levaquin tablet] 750 mg PO DAILY #3 tablet 07/18/18 Following Prescrptions Were Given to Patient: Guaifenesin [Mucinex] 1,200 mg PO BID #14 tablet levoFLOXacin tablet [Levaquin tablet] 750 mg PO DAILY #3 tablet Primary Care Physician: Patel Veliz Chi, MD [Primary Care Provider] - Please follow up with your Primary Care Physician in: in 1-2 weeks Disposition: Home with Home Health Minutes spent on discharge:: 38 Patient Condition:: Stable Medical Necessity - Tobacco Use Smoking Status: Current some day smoker Tobacco Use: Cigarettes Meaningful Use Info Meaningful Use Diagnoses (Choose all that apply): None applicable Code Visit Inpatient E&M: 52612 Disch Hosp
--- NOTE | 2018-07-18 13:57 | CASEMGMT ---
Social Work Note GRAHAM placed a all to pt's CM Beata Chen at [facility] and informed her that pt is being discharged home today. GRAHAM faxed discharge summary and instructions. Cheyanne Cee LOG BUYER, INSTRUCTIONAL TECHNOLOGIST
--- NOTE | 2018-07-18 14:32 | CASEMGMT ---
ERIC BELLE updated that patient qualified for portable oxygen at home. Script received and referral sent to [facility] who [place] is established with. ERIC BELLE arranged for portable oxygen tank be delivered to hospital prior to discharge. ERIC BELLE will continue to follow this paitent and plan for a safe discharge.
--- NOTE | 2018-07-20 14:05 | CASEMGMT ---
RN CM Discharge F/U Phone Call LACE: 16 Strata: 4 Discharge date: 07/19/18 Call date: 07/20/18 Call time: 1407 Attempted to reach pt without success at this time and pt's voicemail has not been set up yet so this RN CM is unable to leave a message at this time. Harish REYES CM aware, voices understanding. Ace REYES CM
== END 2018-07-18 14:59 | disposition home or self-care (01) | DRG 177 ==
LOC: ED 18:27 → MS3 18:46
PROVIDERS: Family Medicine; Admitting Provider Hospitalist; Emergency Provider Emergency Medicine; Family Provider Family Medicine Geriatric Medicine; PCP Family Medicine Geriatric Medicine; Visit Provider Internal Medicine
DX: J15.6 Pneumonia due to other Gram-negative bacteria (principal); J96.21 Acute and chronic respiratory failure with hypoxia; J44.1 Chronic obstructive pulmonary disease with (acute) exacerbation; J44.0 Chronic obstructive pulmonary disease with (acute) lower respiratory infection; Z99.81 Dependence on supplemental oxygen; G40.909 Epilepsy, unspecified, not intractable, without status epilepticus; G47.33 Obstructive sleep apnea (adult) (pediatric); G89.4 Chronic pain syndrome; G25.81 Restless legs syndrome; I10 Essential (primary) hypertension; Y95 Nosocomial condition; Z79.899 Other long term (current) drug therapy; Z79.891 Long term (current) use of opiate analgesic; F17.210 Nicotine dependence, cigarettes, uncomplicated; E78.5 Hyperlipidemia, unspecified; F32.9 Major depressive disorder, single episode, unspecified; K21.9 Gastro-esophageal reflux disease without esophagitis; Z96.641 Presence of right artificial hip joint; M51.36 Other intervertebral disc degeneration, lumbar region; G47.00 Insomnia, unspecified; G89.29 Other chronic pain
CPT/HCPCS: 36415; 71045; 72170; 80048; 81002; 82962; 83605; 83735; 83880; 84484; 85025; 85027; 87040; 87449; 87633; 87641; 87804; 93005; 94640; 97162; 97166; 97530; 97535; 97802; 99285; 99406; J7030; J7050; A4216; J2405

== ENCOUNTER 2018-08-01 16:56 | Emergency (ER) | payer MEDICARE, SELFPAY ==
[2018-07-14 19:19] VITALS: BMI 26.0
[2018-08-01 16:58] VITALS: PULSE 86; RESP 17; RESP 23; TEMP 37.2; O2SAT 93; O2SAT 94; BMI 27.8
[2018-08-01 17:00] VITALS: BP 118/87; PULSE 78; RESP 20; O2SAT 95
--- NOTE | 2018-08-01 17:15 | EKG12_ITS ---
Test Reason : CP Blood Pressure : / mmHG Vent. Rate : 086 BPM Atrial Rate : 086 BPM P-R Int : 154 ms QRS Dur : 080 ms QT Int : 372 ms P-R-T Axes : 085 041 071 degrees QTc Int : 445 ms Normal sinus rhythm Normal ECG Confirmed by ROLAN LEACH, LEONELA ([id number]), supervising editor news reel GOPI RAMIREZ ([id number]) on 08/04/2018 8:27:44 AM Referred By: VIV Confirmed By:LEONELA GONGORA MD
--- NOTE | 2018-08-01 17:30 | RAD_ITS ---
STUDY: X-RAY CHEST REASON FOR EXAM: Female, 67 years old. Weakness. TECHNIQUE: Single AP portable view of the chest. COMPARISON: July 14, 2018. FINDINGS: The lungs are mildly hyperexpanded. There is chronic interstitial coarsening without acute infiltrate or mass. There is no infiltrate at the right lung base. There is no demonstrated pleural abnormality. Normal size heart. Normal mediastinum and denae. Normal visualized pulmonary arteries. Normal visualized aortic arch and descending thoracic aorta. The thoracic spine is obscured by the mediastinum. There is degenerative osteoarthritis of the bilateral shoulders. There is no demonstrated abnormality of the visualized soft tissue structures of the upper abdomen. RAD/Chest 1 View (Portable) IMPRESSION: No acute cardiopulmonary disease. Electronically Signed: Tony Mckeon DO at 17:47 EST Tel [phone], Service support ,
[2018-08-01 17:46] LABS: Bacteria 0 SEEN /hpf (None Seen); Mucous, Urine 0 SEEN /hpf (<or=2+); Red Blood Cells-Urine 0 SEEN /hpf (0-5); Squamous Epithelial Cells - UA 0 SEEN /hpf (5-10); White Blood Cells 0 SEEN /hpf (0-5)
[2018-08-01 17:51] LABS: Color, Urine Yellow (Yellow); Glucose, Dipstick Normal (Normal); Ketone-Dipstick Negative (Negative); Leukocyte Esterase-Dipstick Negative /ul (Negative); Nitrite-Dipstick Negative (Negative); Occult Blood-Urine Negative /ul (Negative); Protein-Dipstick Negative (Negative); Urine Clarity Clear (Clear); Urine Urobilinogen Normal (Normal)
[2018-08-01 18:00] LABS: Absolute Lymphocyte Count 2.15 X10^3/ul (0.83-4.51); Absolute Neutrophil Count 3.5 X10^3/uL (2.0-7.7); Basophil# 0.02 X10^3/uL; Basophil% 0.3 % (0-1); Eosinophil# 0.04 X10^3/uL; Eosinophils% 0.6 % (0-5); Hematocrit 39.7 % (37-47); Hemoglobin 12.8 g/dl (12.0-15.0); Lymphocyte # 2.15 X10^3/ul (4.0); Lymphocyte % 34.2 % (19-41); Mean Corp Hgb Conc 32.2 g/gl (32-36); Mean Corpuscular Hgb 30.3 pg (27.0-32.0); Mean Corpuscular Volume 94.1 fL (81-99); Mean Platelet Vol. 8.9 fl (6.2-12.0); Monocyte# 0.56 X10^3/uL; Monocyte% 8.9 % (0-10); Neutrophil # 3.51 X10^3/uL (2.7-7.7); Neutrophil % 55.8 % (47-70); Platelet Count 307 K/mm3 (150-450); RBC Distribution Width CV 15.2 % (11.6-14.6); RBC Distribution Width SD 51.9 fl (35.1-43.9); Red Blood Count 4.22 M/mm3 (4.2-5.4); White Blood Count 6.3 K/mm3 (4.4-11.0)
[2018-08-01 18:01] LABS: Urine Bilirubin Dipstick 3 mg/dL (Negative)
[2018-08-01 18:02] LABS: POSITIVE COUNT NO; POSITIVE DIFFERENTIAL NO; POSITIVE MORPHOLOGY NO
[2018-08-01 18:10] LABS: Anion Gap 6 (5-15); BUN 15 mg/dL (7-18); BUN/Creat Ratio 31.1 RATIO (10-20); Calcium,Total 8.3 mg/dL (8.5-10.1); Chloride 100 mmol/L (98-107); Creatinine, Serum 0.48 mg/dL (0.55-1.02); EST Glomerular Filtration Rate 135 mL/min (>60); Est Glom Filt Rate - Afr Amer 164 mL/min (>60); Estimated Creatinine Clearance 48.45 ml/min; Glucose 111 mg/dL (74-106); Potassium 3.9 mmol/L (3.5-5.1); Sodium Level 133 mmol/L (136-145)
[2018-08-01 18:14] LABS: Lactic Acid 1.4 mmol/L (0.4-2.0)
[2018-08-01 18:21] VITALS: BP 110/81; PULSE 80; RESP 21; O2SAT 93
[2018-08-01] MEDS: 0.9% Normal Saline 1,000 ML 150 ML IV (18:35)
[2018-08-01 19:07] LABS: Phenytoin (Dilantin) Level 11.7 mL (10.0-20.0)
[2018-08-01 19:12] LABS: Carbamazepine (Tegretol) < 0.5 ug/mL (4.0-12.0)
[2018-08-01 20:37] VITALS: BP 168/112; PULSE 78; RESP 21; O2SAT 96
[2018-08-01] MEDS: LORazepam 1 MG Tablet PO (20:43)
--- NOTE | 2018-08-01 20:57 | CT_ITS ---
STUDY: CT BRAIN WITHOUT CONTRAST REASON FOR EXAM: Female, 67 years old. Twitching of the right arm. RADIATION DOSAGE (If Supplied By Facility): CTDIvol = ( 60.81 ) mGy, DLP = ( 2179.77 ) mGycm TECHNIQUE: Transaxial CT imaging of the brain was performed without administration of intravenous contrast material. Individualized dose optimization techniques were used for this CT. COMPARISON: April 02, 2018. FINDINGS: Normal soft tissue structures. Normal calvarium. Normal size ventricles and extra-axial spaces for the patient's age. There are areas of decreased attenuation within the white matter tracts of the supratentorial brain, consistent with microvascular disease changes. Normal basal ganglia and thalami. Normal brainstem. Normal cerebellum. There is no intracranial hemorrhage. There are no findings of an acute ischemic infarction. Normal visualized paranasal sinuses. CT/Brain/Head without Contrast IMPRESSION: No acute intracranial or calvarial abnormality. There is no major interval change. Electronically Signed: Tony Mckeon DO at 22:09 EST Tel [phone], Service support ,
[2018-08-01] MEDS: LORazepam 2 MG/ML Syringe 1 MG IV (21:05)
--- NOTE | 2018-08-01 22:11 | ED.VISSUMM ---
- ER Visit Summary Date of Service: 08/01/18 Chief Complaint: [Shaking] History of Present Illness: The patient is a 67 F [presents to the emergency department via EMS with complaint of shaking that started around 11 AM. Patient states that her right side seems to intermittently shake. Patient states that she has not had symptoms like this in the past. Patient does have a history of seizure disorder as well as restless leg and some psychiatric issues with depression. Patient denies any recent illness. She denies fever or cough. She denies vomiting or diarrhea. Patient has felt hot and cold today. Patient denies any falls or head injuries. She tells me she is never had symptoms like this before. Patient has not had seizure in many years.] Physical Examination: [HEENT-PERRLA, EOMI. Cranial nerves II through XII grossly intact. TMs clear. Mucous membranes moist. No adenopathy. Cardiovascular-regular rate and rhythm without murmur or ectopy Lungs-clear to auscultation, chest wall stable without crepitus or subcu emphysema Abdomen-normoactive bowel sounds, soft, nontender, no rebound or rigidity, no peritoneal signs. My neuro ihmi-lsrwuc-lgjs and heel carbajal testing within normal limits, negative Romberg, negative pronator drift, fundi benign. Patient does have a fine tremor of her head. Patient will have intermittent twitching of her right arm noted. Nurses note that while they are not in the room there is no artifact noted on the cardiac cath technologist however as they enter the room she begins to twitch more and they noticed more activity on the monitor. Extremities-intact ?4, normal range of motion, normal pulses, atraumatic] Test Results: [CT scan of the brain without contrast ordered results are currently pending however on my interpretation she has some chronic microvascular changes I do not appreciate any acute hemorrhage. EKG obtained shows sinus rhythm with a ventricular rate of 86 bpm with no acute I segment changes. CBC with differential showed a white count 6.3, hemoglobin 12.8, hematocrit 39.7, platelets 307. Chemistries unremarkable. Urinalysis was normal. Troponin was less than 0.015. Dilantin was 11.7, phenobarbital 11.7, Tegretol less than 0.5.] Emergency Department Course and Treatment: [Patient was given Ativan 1 mg p.o. initially followed by another milligram of Ativan IV. Patient stop shaking. Patient requested multiple times to be allowed to go home and wants to sign out AGAINST MEDICAL ADVICE. At this point the shaking is unclear and it is unclear if this is seizure activity or anxiety or other neurologic symptom. I recommended admission for further workup and evaluation. Patient is refusing. She understands I do not have a clear etiology for her symptoms. Patient's son who is with her also attempted to convince her to stay and she is refusing.] Treatment Plan: [Patient to follow-up with her primary care physician and I will refer to her neurologist.] Disposition: [Discharged to home AGAINST MEDICAL ADVICE] Impression: [Tremor Seizure Patient signed out AGAINST MEDICAL ADVICE] This note was generated with [employer] dictation software. It may contain incorrect words, spelling, and punctuation that were not noted in review of the chart prior to signing ED Disposition - Plan for ED Patient: Referrals: Patel Veliz Chi, MD [Primary Care Provider] -
--- NOTE | 2018-08-01 22:14 | ED.DCSUM_ITS ---
- ER Visit Summary Date of Service: 08/01/18 Chief Complaint: [Shaking] History of Present Illness: The patient is a 67 F [presents to the emergency department via EMS with complaint of shaking that started around 11 AM. Patient states that her right side seems to intermittently shake. Patient states that she has not had symptoms like this in the past. Patient does have a history of seizure disorder as well as restless leg and some psychiatric issues with depression. Patient denies any recent illness. She denies fever or cough. She denies vomiting or diarrhea. Patient has felt hot and cold today. Patient denies any falls or head injuries. She tells me she is never had symptoms like this before. Patient has not had seizure in many years.] Physical Examination: [HEENT-PERRLA, EOMI. Cranial nerves II through XII grossly intact. TMs clear. Mucous membranes moist. No adenopathy. Cardiovascular-regular rate and rhythm without murmur or ectopy Lungs-clear to auscultation, chest wall stable without crepitus or subcu emphysema Abdomen-normoactive bowel sounds, soft, nontender, no rebound or rigidity, no peritoneal signs. My neuro [id number] and heel carbajal testing within normal limits, negative Romberg, negative pronator drift, fundi benign. Patient does have a fine tremor of her head. Patient will have intermittent twitching of her right arm noted. Nurses note that while they are not in the room there is no artifact noted on the cardiac catheterization technologist however as they enter the room she begins to twitch more and they noticed more activity on the monitor. Extremities-intact ?4, normal range of motion, normal pulses, atraumatic] Test Results: [CT scan of the brain without contrast ordered results are currently pending however on my interpretation she has some chronic microvascular changes I do not appreciate any acute hemorrhage. EKG obtained shows sinus rhythm with a ventricular rate of 86 bpm with no acute I segment changes. CBC with differential showed a white count 6.3, hemoglobin 12.8, hematocrit 39.7, platelets 307. Chemistries unremarkable. Urinalysis was normal. Troponin was less than 0.015. Dilantin was 11.7, phenobarbital 11.7, Tegretol less than 0.5.] Emergency Department Course and Treatment: [Patient was given Ativan 1 mg p.o. initially followed by another milligram of Ativan IV. Patient stop shaking. Patient requested multiple times to be allowed to go home and wants to sign out AGAINST MEDICAL ADVICE. At this point the shaking is unclear and it is unclear if this is seizure activity or anxiety or other neurologic symptom. I recommended admission for further workup and evaluation. Patient is refusing. She understands I do not have a clear etiology for her symptoms. Patient's son who is with her also attempted to convince her to stay and she is refusing.] Treatment Plan: [Patient to follow-up with her primary care physician and I will refer to her neurologist.] Disposition: [Discharged to home AGAINST MEDICAL ADVICE] Impression: [Tremor Seizure Patient signed out AGAINST MEDICAL ADVICE] This note was generated with [employer] dictation software. It may contain incorrect words, spelling, and punctuation that were not noted in review of the chart prior to signing ED Disposition - Plan for ED Patient: Referrals: Patel Veliz Chi, MD [Primary Care Provider] -
--- NOTE | 2018-08-01 22:17 | ED.DEP ---
ED Disposition - Plan for ED Patient: Instructions: ED Seizure Recurrent, Essential Tremor Disorder Referrals: Patel Veliz Chi, MD [Primary Care Provider] - 3-5 Days Tran Sebastian MD [STAFF PHYSICIAN] - 3-5 Days
== END 2018-08-01 22:36 | disposition left against medical advice (07) ==
PROVIDERS: Emergency Provider Emergency Medicine; Family Provider Family Medicine Geriatric Medicine; PCP Family Medicine Geriatric Medicine
DX: G40.909 Epilepsy, unspecified, not intractable, without status epilepticus (principal); Z53.21 Procedure and treatment not carried out due to patient leaving prior to being seen by health care provider; I10 Essential (primary) hypertension; J44.9 Chronic obstructive pulmonary disease, unspecified; F32.9 Major depressive disorder, single episode, unspecified; G25.81 Restless legs syndrome; Z79.82 Long term (current) use of aspirin; Z79.899 Other long term (current) drug therapy; Z72.0 Tobacco use
CPT/HCPCS: 70450; 71045; 80048; 80156; 80184; 80185; 81001; 83605; 84484; 85025; 87040; 93005; 96361; 96374; 99285; J7030; A4216

== ENCOUNTER → 2018-08-07 15:37 | Outpatient (CLI) | payer MEDICARE, SELFPAY ==
[2018-08-01 16:58] VITALS: BMI 27.8
[2018-08-07 17:00] LABS: Amphetamine Urine VISTA NEGATIVE (<1000 ng/mL); Barbiturate Urine VISTA POSITIVE (< 200 ng/mL); Benzodiazepine Urine VISTA POSITIVE (< 200 ng/mL); Cocaine Urine VISTA NEGATIVE (< 300 ng/mL); Ecstacy Urine VISTA NEGATIVE (< 500 ng/mL); Methadone Urine VISTA POSITIVE (< 300 ng/mL); PCP Urine VISTA NEGATIVE (< 25 ng/mL); THC Urine VISTA NEGATIVE (< 50 ng/mL); Vista UDS pH Range 6
== END ==
PROVIDERS: Family Provider Family Medicine Geriatric Medicine; PCP Family Medicine Geriatric Medicine; Referring Provider Anesthesiology Pain Medicine; Visit Provider Anesthesiology Pain Medicine
DX: F11.20 Opioid dependence, uncomplicated (principal)
CPT/HCPCS: 80307

== ENCOUNTER 2018-08-12 19:01 | Emergency (ER) | payer MEDICARE, SELFPAY ==
[2018-08-12 19:02] VITALS: BP 111/90; PULSE 78; RESP 24; TEMP 36.6; O2SAT 95; BMI 26.8
--- NOTE | 2018-08-12 19:20 | CT_ITS ---
STUDY: CT ABDOMEN AND PELVIS WITHOUT CONTRAST REASON FOR EXAM: Female, 67 years old. Constipation. RADIATION DOSAGE (If Supplied By Facility): CTDIvol = ( 8.31 ) mGy, DLP = ( 390.44 ) mGycm TECHNIQUE: Transaxial images were obtained from the dome of the diaphragm to the symphysis pubis without oral contrast, and without intravenous contrast. Sagittal and coronal images were reconstructed. Individualized dose optimization techniques were used for this CT. COMPARISON: 03/19/2018. FINDINGS: Lung bases are clear. Visualized heart is normal. There is a small hiatal hernia. The liver is unremarkable. The gallbladder is surgically absent. The spleen and pancreas are unremarkable. The adrenal glands are normal. The kidneys are unremarkable. No stones or hydronephrosis. The aorta is normal in caliber. There is no free fluid, free air, or organized collection. No bowel obstruction or inflammatory change. Stool burden is moderate. Urinary bladder is unremarkable. Normal abdominal wall. Degenerative changes of the lumbar spine are noted. Patient is status post right hip replacement. CT/Abdomen/Pelvis without Cont IMPRESSION: 1. No acute findings. 2. Small hiatal hernia. 3. Chronic and postsurgical changes are detailed above. Electronically Signed: Gabby Medina MD at 21:44 EST Tel , Service support ,
[2018-08-12 19:57] LABS: Absolute Lymphocyte Count 1.74 X10^3/ul (0.83-4.51); Absolute Neutrophil Count 3.6 X10^3/uL (2.0-7.7); Basophil# 0.04 X10^3/uL; Basophil% 0.6 % (0-1); Eosinophil# 0.39 X10^3/uL; Hematocrit 38.7 % (37-47); Hemoglobin 12.7 g/dl (12.0-15.0); Lymphocyte # 1.74 X10^3/ul (4.0); Lymphocyte % 26.8 % (19-41); Mean Corp Hgb Conc 32.8 g/gl (32-36); Mean Corpuscular Hgb 31.4 pg (27.0-32.0); Mean Corpuscular Volume 95.6 fL (81-99); Mean Platelet Vol. 9.4 fl (6.2-12.0); Monocyte# 0.67 X10^3/uL; Monocyte% 10.3 % (0-10); Neutrophil # 3.63 X10^3/uL (2.7-7.7); Neutrophil % 55.8 % (47-70); Platelet Count 208 K/mm3 (150-450); RBC Distribution Width CV 15.1 % (11.6-14.6); RBC Distribution Width SD 52.9 fl (35.1-43.9); Red Blood Count 4.05 M/mm3 (4.2-5.4); White Blood Count 6.5 K/mm3 (4.4-11.0)
[2018-08-12 19:58] LABS: POSITIVE COUNT NO; POSITIVE DIFFERENTIAL NO; POSITIVE MORPHOLOGY NO
--- NOTE | 2018-08-12 19:58 | ED.RN ---
pt stated she could not void as she sat on the bsc.preparing to straight cath the pt and found her depends soaked with urine.pt straight cath for cl yellow urine.
[2018-08-12 19:59] LABS: Red Blood Cells-Urine 0 SEEN /hpf (0-5); Squamous Epithelial Cells - UA 0 SEEN /hpf (5-10)
[2018-08-12 20:12] LABS: ALB/GLOB Ratio 0.9 RATIO (0.9-2.4); AST(SGOT) 45 U/L (15-37); Alanine Aminotransfer ALT/SGPT 30 U/L (13-56); Alkaline Phosphatase 63 U/L (45-117); Anion Gap 5 (5-15); BUN 8 mg/dL (7-18); BUN/Creat Ratio 20.5 RATIO (10-20); Calcium,Total 7.9 mg/dL (8.5-10.1); Chloride 97 mmol/L (98-107); Creatinine, Serum 0.39 mg/dL (0.55-1.02); EST Glomerular Filtration Rate 173 mL/min (>60); Est Glom Filt Rate - Afr Amer 209 mL/min (>60); Estimated Creatinine Clearance 48.45 ml/min; Globulin 3.4 g/dL (2.2-4.2); Glucose 88 mg/dL (74-106); Potassium 4.8 mmol/L (3.5-5.1); Protein, Total 6.4 g/dL (6.4-8.2); Sodium Level 130 mmol/L (136-145)
[2018-08-12 20:18] LABS: Color, Urine Yellow (Yellow); Glucose, Dipstick Normal (Normal); Ketone-Dipstick Negative (Negative); Leukocyte Esterase-Dipstick 25 /ul (Negative); Nitrite-Dipstick Negative (Negative); Occult Blood-Urine Negative /ul (Negative); Protein-Dipstick Negative (Negative); Urine Bilirubin Dipstick 3 mg/dL (Negative); Urine Clarity Clear (Clear); Urine Urobilinogen 1 mg/dl (Normal)
--- NOTE | 2018-08-12 20:18 | ED.VISSUMM ---
- ER Visit Summary Date of Service: 08/12/18 Chief Complaint: Constipation History of Present Illness: The patient is a 67 F who says she has no bowel movements for 7 or 8 days, she also notes she has decreased urine output over the past 8 hours, however she is got adult diapers that are quite wet. She denies any significant abdominal pain. She has no fever or chills. She does have a psychiatric history and thus my history of present illness is somewhat limited. Physical Examination: She has rhythmic dystonic movements of her head. Her heart is regular lungs are clear abdomen is soft on palpating throughout the entire abdomen and she is not resisting me, quite benign abdomen without any guarding. Rectal exam does not show any stool in the vault. She has normal external genitalia. She does not appear in significant distress she does not appear toxic. Emergency Department Course and Treatment: Patient is found to have an unremarkable workup she appears well there is no severe constipation I believe she is safe for discharge. She was able to urinate just fine. Discharge stable condition Impression: Abdominal pain This note was generated with [employer] dictation software. It may contain incorrect words, spelling, and punctuation that were not noted in review of the chart prior to signing ED Disposition - Plan for ED Patient: Disposition: Home or Assisted Living Instructions: ED Abdominal Pain Unkn Cause Referrals: Patel Veliz Chi, MD [Primary Care Provider] - 3-5 Days
[2018-08-12 20:23] LABS: Bacteria RARE /hpf (None Seen); Mucous, Urine 1+ /hpf (<or=2+); White Blood Cells 0-5 SEEN /hpf (0-5)
[2018-08-12 21:56] VITALS: BP 115/85; PULSE 70; RESP 14; O2SAT 97
[2018-08-12] MEDS: oxyCODONE 5 MG Tablet PO (22:02)
== END 2018-08-12 22:21 | disposition home or self-care (01) ==
PROVIDERS: Emergency Provider Emergency Medicine; Family Provider Family Medicine Geriatric Medicine; PCP Family Medicine Geriatric Medicine
DX: R10.9 Unspecified abdominal pain (principal)
CPT/HCPCS: 51702; 74176; 80053; 81001; 85025; 87077; 87086; 87088; 87186; 99285; A4216

== ENCOUNTER 2018-08-15 13:01 | Inpatient (IN) | payer MEDICARE, SELFPAY ==
[2018-08-15] VITALS (9 sets, daily range): BP systolic 104–124; BP diastolic 58–77; PULSE 65–77; RESP 16–19; TEMP 36.1–36.9; O2SAT 96–100; BMI 19.2; BMI 25.4; BMI 25.5
--- NOTE | 2018-08-15 13:45 | CM.ED ---
SOCIAL WORK NOTE DISCUSSED CASE WITH NURSING. PT WITH SUICIDE ATTEMPT AND WILL NEED EVALUATION BY CRISIS. KENIA PHILIPPE, DITCHER, REHABILITATION COUNSELLOR.
[2018-08-15 13:49] LABS: Absolute Lymphocyte Count 1.65 X10^3/ul (0.83-4.51); Absolute Neutrophil Count 3.6 X10^3/uL (2.0-7.7); Basophil# 0.04 X10^3/uL; Basophil% 0.7 % (0-1); Eosinophils% 4.9 % (0-5); Hematocrit 38.8 % (37-47); Hemoglobin 12.5 g/dl (12.0-15.0); Lymphocyte # 1.65 X10^3/ul (4.0); Mean Corp Hgb Conc 32.2 g/gl (32-36); Mean Corpuscular Hgb 31.7 pg (27.0-32.0); Mean Corpuscular Volume 98.5 fL (81-99); Mean Platelet Vol. 8.3 fl (6.2-12.0); Monocyte# 0.51 X10^3/uL; Monocyte% 8.4 % (0-10); Neutrophil # 3.58 X10^3/uL (2.7-7.7); Neutrophil % 58.7 % (47-70); POSITIVE COUNT NO; POSITIVE DIFFERENTIAL NO; POSITIVE MORPHOLOGY NO; Platelet Count 170 K/mm3 (150-450); RBC Distribution Width CV 14.9 % (11.6-14.6); RBC Distribution Width SD 52.4 fl (35.1-43.9); Red Blood Count 3.94 M/mm3 (4.2-5.4); White Blood Count 6.1 K/mm3 (4.4-11.0)
[2018-08-15 14:02] LABS: Anion Gap 11 (5-15); BUN 6 mg/dL (7-18); BUN/Creat Ratio 13.6 RATIO (10-20); Calcium,Total 7.9 mg/dL (8.5-10.1); Chloride 102 mmol/L (98-107); Creatinine, Serum 0.44 mg/dL (0.55-1.02); EST Glomerular Filtration Rate 150 mL/min (>60); Est Glom Filt Rate - Afr Amer 182 mL/min (>60); Estimated Creatinine Clearance 45.99 ml/min; Glucose 95 mg/dL (74-106); Potassium 3.5 mmol/L (3.5-5.1); Sodium Level 142 mmol/L (136-145)
[2018-08-15 14:14] LABS: Alcohol, Blood (Medical)-Serum < 3.0 mg/dL
[2018-08-15 14:34] LABS: Phenytoin (Dilantin) Level 21.9 mL (10.0-20.0)
[2018-08-15 14:51] LABS: Amphetamine Urine VISTA NEGATIVE (<1000 ng/mL); Barbiturate Urine VISTA POSITIVE (< 200 ng/mL); Benzodiazepine Urine VISTA POSITIVE (< 200 ng/mL); Cocaine Urine VISTA NEGATIVE (< 300 ng/mL); Ecstacy Urine VISTA NEGATIVE (< 500 ng/mL); Methadone Urine VISTA POSITIVE (< 300 ng/mL); PCP Urine VISTA NEGATIVE (< 25 ng/mL); THC Urine VISTA NEGATIVE (< 50 ng/mL); Vista UDS pH Range 6
[2018-08-15] MEDS: Diphth,Pertuss(Acell),Tet Vac 0.5 ML Vial IM (14:59)
[2018-08-15] MEDS: 0.9% Normal Saline 1,000 ML 999 ML IV ×2 (15:40)
--- NOTE | 2018-08-15 15:52 | ED.DCSUM_ITS ---
- ER Visit Summary Date of Service: 08/15/18 Chief Complaint: Suicidal History of Present Illness: The patient is a 67 F presenting with suicidal ideation. Patient states she has been suicidal for several months but just today got the guts to kill herself. She cut both of her wrists today. Home health called EMS. She states she does not know what she cut her wrist with. She refuses to answer multiple questions. She has a history of COPD, hypertension, seizures. She is on home O2 4 L. Denies alcohol or drug use. Physical Examination: Vitals are stable. Patient is afebrile. Alert no acute distress. 96% on 4 L HEENT exam is unremarkable. Neck is supple. Lungs are clear and equal bilaterally. Heart is regular rate and rhythm. Abdomen is soft nontender nondistended. Extremities superficial abrasions bilateral wrists Skin is warm and dry. No focal neurologic deficit. Remainder of exam is unremarkable. Emergency Department Course and Treatment: CBC chemistries unremarkable. Tox positive for methadone, barbiturates, benzodiazepines. Alcohol negative. Dilantin level 21.9. She was given tetanus IM. She was given IV fluids. Due to elevated Dilantin level, discussed with the hospitalist for admission. Disposition: Admission Impression: Supratherapeutic Dilantin level, encephalopathy, suicidal ideation This note was generated with [employer] dictation software. It may contain incorrect words, spelling, and punctuation that were not noted in review of the chart prior to signing ED Disposition - Plan for ED Patient: Referrals: Patel Veliz Chi, MD [Primary Care Provider] -
--- NOTE | 2018-08-15 15:59 | NURSING ---
ICU 5 ENCEPHALOPATHIC, SUPRATHERAPEUTIC DILANTIN LEVEL, SUICIDAL WHITE
--- NOTE | 2018-08-15 16:10 | HP.PCM_ITS ---
Problem List (1) Suicide attempt Status: Acute (2) Tobacco use Status: Chronic (3) Depression Status: Chronic Qualifiers: (4) Insomnia Status: Chronic Qualifiers: Comment: She takes Temazepam every night for sleep, prescribed by Dr. Veliz (5) Physical debility Status: Chronic (6) Seizure disorder Status: Chronic (7) Restless leg syndrome Status: Chronic (8) COPD (chronic obstructive pulmonary disease) Status: Chronic Qualifiers: Comment: 1 ppd now smoker 4 ppd (9) Obstructive sleep apnea Status: Chronic Comment: non-compliant with CPAP but has oxygen to wear at night History of Present Illness Date of Admission: 08/15/18 Chief Complaint: suicidality The patient is a 67 year old F with pmhx of depression, seizure disorder, COPD with ongoing nicotine abuse, insomnia, RLS, HTN, who presents to the ER by squad for suicide attempt. EMS was called and she was found with cut wrists and was minimally responsive, bleeding was controlled at that time. Per ER physician the patient told her that she has wanted to kill herself for months but today decided to do it. She cut her wrists. The bleeding remains controlled. She feels somewhat SOB. She uses 4 lpm O2 chronically at home. No cough, no fever/chills. No nausea/vomiting. She c/o being thirsty. No SAENZ/Dizziness. Pt was to be transferred to inpatient psycho however her dilantin level was elevated so she cannot be transferred yet. She states she has not taken any medications in several days. She denies overdosing on medications. [] Past Medical History Past Medical History (Chronic Problems): Chronic Problems (Last Updated 07/14/18 @ 18:36 by Judson Hyman MD) Tobacco use (Chronic) History of right hip replacement (Chronic) S/P laparoscopic cholecystectomy (Chronic) S/P appendectomy (Chronic) Depression (Chronic) Insomnia (Chronic) She takes Temazepam every night for sleep, prescribed by Dr. Veliz Hypertension (Chronic) Physical debility (Chronic) Degenerative disc disease, lumbar (Chronic) Pain, chronic (Chronic) Seizure disorder (Chronic) Restless leg syndrome (Chronic) COPD (chronic obstructive pulmonary disease) (Chronic) 1 ppd now smoker 4 ppd Obstructive sleep apnea (Chronic) non-compliant with CPAP but has oxygen to wear at night Smokes with greater than 40 pack year history (Chronic) Medical History: Medical History (Last Updated 07/14/18 @ 18:36 by Judson Hyman MD) Depression (Chronic) F32.9 Insomnia (Chronic) G47.00 She takes Temazepam every night for sleep, prescribed by Dr. Veliz Hypertension (Chronic) I10 Physical debility (Chronic) R53.81 Degenerative disc disease, lumbar (Chronic) M51.36 Pain, chronic (Chronic) G89.29 Seizure disorder (Chronic) G40.909 Restless leg syndrome (Chronic) COPD (chronic obstructive pulmonary disease) (Chronic) J44.9 1 ppd now smoker 4 ppd Obstructive sleep apnea (Chronic) G47.33 non-compliant with CPAP but has oxygen to wear at night Smokes with greater than 40 pack year history (Chronic) F17.210 Allergies Penicillins Allergy (Verified 08/12/18 19:08) Anaphylaxis codeine Adverse Reaction (Verified 08/12/18 19:08) Nausea Home Medications: Ambulatory Orders Medication Instructions Recorded Albuterol Aerosols [Ventolin 2.5 mg INHALATION Q6H PRN 05/12/16 Aerosols] Alendronate Sodium [Fosamax] 70 mg PO FR 05/12/16 Etodolac 400 mg PO BID 05/12/16 Fluticasone/Salmeterol [Advair 2 puff INHALATION BID 05/12/16 250/50 Mcg Diskus] Temazepam [Restoril] 30 mg PO QHS 06/24/17 Mirtazapine [Remeron] 15 mg PO QHS 07/03/17 Latanoprost 0.005% [Xalatan 1 drp EACH EYE QHS 07/04/17 Opthalmic] Methadone HCl 10 mg PO TID 09/04/17 Phenobarbital 32.4 mg PO BID 11/07/17 Pravastatin [Pravachol] 40 mg PO QHS 11/07/17 Acetaminophen [Tylenol Tablet] 650 mg PO Q6H PRN PRN tablet 03/07/18 Aspirin [Aspirin, Baby] 81 mg PO DAILY@0800 tab.chew 03/07/18 Sennosides/Docusate Sodium 2 each PO BID 04/03/18 [Senna-Docusate Sodium Tablet] Clotrimazole 1 applic TOPICAL PRN PRN 06/13/18 Oxcarbazepine [Trileptal] 600 mg PO BID 06/13/18 Phenytoin Sodium Extended 100 mg PO 4X/DAY 06/13/18 [Dilantin] Ranitidine HCl [Zantac] 300 mg PO DAILY 06/13/18 Risperidone 0.25 mg PO DAILY 06/13/18 Ropinirole HCl [Requip] 2 mg PO DAILY 06/13/18 Tolterodine Tartrate [Detrol LA] 4 mg PO DAILY 06/13/18 Albuterol Sulfate [Ventolin Hfa] 2 puff INHALATION BID 07/14/18 Multivitamin with Minerals 1 tab PO DAILY 07/14/18 [Multiple Vitamin] Surgical History: Surgical History (Last Updated 07/14/18 @ 18:35 by Judson Hyman MD) History of right hip replacement (Chronic) Z96.641 S/P laparoscopic cholecystectomy (Chronic) Z90.49 S/P appendectomy (Chronic) Z90.49 Surgical History: appendectomy, cholecystectomy, - - Fractured right ankle, carpal tunnel surgery, removal of teeth, right ovariectomy and fallopian tube removal. Psychiatric History: Anxiety, Depression - untreated STAFFING COORDINATOR History: No pertinent STAFFING COORDINATOR history Lives: Alone Smoking Status: Current every day smoker Tobacco Use: Non-smoker Alcohol: None Drugs: None - *Family History Maternal Family History: Family History (Last Reviewed 06/13/18 @ 22:00 by Yunior Heaton MD) Mother Diabetes Heart disease Hypertension CAD (coronary artery disease) CVA (cerebral vascular accident) History Items: Diabetes Paternal Family History: Family History (Last Reviewed 06/13/18 @ 22:00 by Yunior Heaton MD) Mother Diabetes Heart disease Hypertension CAD (coronary artery disease) CVA (cerebral vascular accident) History Items: Cancer - colon Sibling Family History: Family History (Last Reviewed 06/13/18 @ 22:00 by Yunior Heaton MD) Mother Diabetes Heart disease Hypertension CAD (coronary artery disease) CVA (cerebral vascular accident) History Items: No pertinent history Review of Systems Constitutional: Denies: Chills, Fever, Weight Change HEENT: Denies: Head Aches, Sinus Congestion, Sinus Drainage Cardiovascular: Denies: Chest Pain, Palpitations Respiratory: Reports: Shortness of Breath. Denies: Cough, Shortness of breath at rest, Sputum production Gastrointestinal: Denies: Abdominal Pain, Nausea, Vomiting Genitourinary: Denies: Dysuria Musculoskeletal: Denies: Joint Pain, Joint Tenderness Skin: Denies: Rash, Wounds Neurological: Denies: Numbness, Tingling, Focal weakness Psychiatric: Reports: Depression, Suicidal Ideations. Denies: Anxiety, Homicidal Ideations Hematologic/ Lymphatic: Denies: Easy Bruising, Easy Bleeding VTE Information - Inpt Only VTE Present on Admission: No VTE Mechan Device Prophylaxis: None VTE Pharm Prophylaxis ordered?: Yes Patient Problems: Active and Suspected Problems (Last Updated 07/14/18 @ 18:36 by Judson Hyman MD) Suicide attempt (Acute) - Physical Exam General: Alert, Oriented x3, Lethargic HEENT: Atraumatic, PERRLA, EOMI, Normocephalic Neck: Supple, No JVD, Negative Carotid Bruits Lungs: Clear to auscultation, Normal air movement, Wheezes Cardiovascular: Regular rate, No murmurs Abdomen: Bowel Sounds Present, Soft, Non Tender Extremities: No edema, Capillary Refill Less than 3 Seconds Skin: No rashes, No breakdown Musculoskeletal: No Tenderness to Palpation of Joints or Extremities Neurological: Cranial nerves II-XII grossly intact Psych/Mental Status: Agitated, Depressed, Suicidal Vital Signs Temp Pulse Resp BP Pulse Ox 97 F L 73 16 106/61 99 08/15/18 13:02 08/15/18 15:39 08/15/18 15:39 08/15/18 15:39 08/15/18 14:27 Oxygen Flow Rate (L/min) 2 Oxygen Delivery Method Nasal Cannula Weight: 119 lb 4.321 oz Body Mass Index (BMI) 19.2 Laboratory Tests Past 24 Hrs 08/15/18 08/15/18 08/15/18 13:35 13:35 13:35 WBC 6.1 RBC 3.94 L Hgb 12.5 Hct 38.8 MCV 98.5 MCH 31.7 MCHC 32.2 RDW 14.9 H RDW Differential 52.4 H Plt Count 170 MPV 8.3 Immature Gran % (Auto) 0.300 Neut % (Auto) 58.7 Lymph % (Auto) 27.0 [place] % (Auto) 8.4 Eos % (Auto) 4.9 Baso % (Auto) 0.7 Absolute Neuts (auto) 3.6 Absolute Lymphs (auto) 1.65 Total Counted Not Reportable Sodium 142 Potassium 3.5 Chloride 102 Carbon Dioxide 29.0 Anion Gap 11 BUN 6 L Creatinine 0.44 L Estim Creat Clear Calc 45.99 Est GFR (MDRD) Af Amer 182 Est GFR (MDRD) Non-Af 150 BUN/Creatinine Ratio 13.6 Glucose 95 Calcium 7.9 L Urine Opiates Screen Urine Methadone Screen Ur Barbiturates Screen Phenytoin Carbamazepine Ur Phencyclidine Scrn Ur Amphetamines Screen U Methamphetamin-MDMA Phenobarbital U Benzodiazepines Scrn Urine Cocaine Screen U Cannabinoids Screen Ur Drug Screen Comment Ethyl Alcohol < 3.0 08/15/18 08/15/18 08/15/18 13:35 14:25 15:40 WBC RBC Hgb Hct MCV MCH MCHC RDW RDW Differential Plt Count MPV Immature Gran % (Auto) Neut % (Auto) Lymph % (Auto) [place] % (Auto) Eos % (Auto) Baso % (Auto) Absolute Neuts (auto) Absolute Lymphs (auto) Total Counted Sodium Potassium Chloride Carbon Dioxide Anion Gap BUN Creatinine Estim Creat Clear Calc Est GFR (MDRD) Af Amer Est GFR (MDRD) Non-Af BUN/Creatinine Ratio Glucose Calcium Urine Opiates Screen NEGATIVE Urine Methadone Screen POSITIVE H Ur Barbiturates Screen POSITIVE H Phenytoin 21.9 H* Carbamazepine Pending Ur Phencyclidine Scrn NEGATIVE Ur Amphetamines Screen NEGATIVE U Methamphetamin-MDMA NEGATIVE Phenobarbital 31.0 U Benzodiazepines Scrn POSITIVE H Urine Cocaine Screen NEGATIVE U Cannabinoids Screen NEGATIVE Ur Drug Screen Comment Ethyl Alcohol Assessment/Plan All Active Problems (Last Updated 07/14/18 @ 18:36 by Judson Hyman MD) Suicide attempt (Acute) HABP (hospital-acquired bacterial pneumonia) (Acute) 1. Suicide attempt, history of depression- tx to inpatient psych when appropriate. Wrists are superficial and not bleeding. Dress as needed. Suicide precautions. Currently lethargic. Hold sedating meds. Cannot be admitted until phenytoin level normalizes. Received 2 liters NS in ER 2. Hx seizures - elevated phenytoin level. Hold. Recheck. Free phenytoin level unavailable at this lab. Check tegratol level. Monitor for seizure. PRN ativan if needed. We cannot be sure what she has and hasnt taken. 3. COPD with chronic hypoxic respiratory failure-on 4 L/min at home, somewhat wheezy on exam, continue home oxygen, provide DuoNeb's and albuterol as needed. Pt requested nicotine patch - will provide. 4. Chronic pain-on home methadone. This will be held for lethargy. 5. Hypertension-stable 6. Restless leg syndrome-Requip 7. Hyperlipidemia-statin DVT ppx: lovenox DC planning: to inpatient psych when phenytoin level down This patient was seen by Tavo Patino PA-C under the supervision of Doctor Shellie.
[2018-08-15 16:36] LABS: Carbamazepine (Tegretol) < 0.5 ug/mL (4.0-12.0)
--- NOTE | 2018-08-15 17:06 | NURSING ---
Pt is refusing all treatment at this time, patient is agitated ripping off blood pressure cuff SPO2 sensor, states she wants to go home and that she did not attempt to kill herself she states that if she wanted to kill herself she would actually do it. Pt refusing CT of head at this time and states she wants the papers to sign out AMA. Dr. Hensley notified of the above and sending Tavo MARTINEZ to speak with patient and see if he can deescalate her and reassess her neuro status
[2018-08-15 17:15] LABS: Magnesium 2.2 mg/dL (1.6-2.6); Thyroid Stim Hormone (TSH) 0.29 uIU/mL (0.358-3.74)
[2018-08-15 18:08] LABS: Free T3 1.6 pg/mL (2.18-3.98); T4 Free Direct 0.69 ng/dL (0.76-1.46)
--- NOTE | 2018-08-15 18:24 | NURSING ---
This RN notified Tavo MARTINEZ that patient was refusing blood pressures and pulse ox as well as head CT him and Dr hernandez discussed changed pt status to PCU no head CT at this time due to patient refusal
[2018-08-15] MEDS: OXcarbazepine 600 MG Tablet PO (21:03)
--- NOTE | 2018-08-15 21:45 | NURSING ---
This RN notifying Dr. Collado of pt's request for Methadone. Dr. Collado states okay to order if Methadone on home med list is verified by pharmacy. Methadone prescription of 10mg tablet TID is verified by pharmacist and was last dispensed on 08/08/2018.
[2018-08-15] MEDS: Methadone 10 MG Tablet PO (22:06)
[2018-08-16] VITALS (11 sets, daily range): BP systolic 91–117; BP diastolic 50–83; PULSE 67–92; RESP 15–20; TEMP 36.7–37.1; O2SAT 96–100
[2018-08-16 04:42] LABS: Absolute Lymphocyte Count 2.24 X10^3/ul (0.83-4.51); Absolute Neutrophil Count 6.6 X10^3/uL (2.0-7.7); Basophil# 0.03 X10^3/uL; Basophil% 0.3 % (0-1); Eosinophil# 0.32 X10^3/uL; Eosinophils% 3.2 % (0-5); Hematocrit 37.9 % (37-47); Hemoglobin 12.1 g/dl (12.0-15.0); Lymphocyte # 2.24 X10^3/ul (4.0); Lymphocyte % 22.2 % (19-41); Mean Corp Hgb Conc 31.9 g/gl (32-36); Mean Corpuscular Hgb 31.7 pg (27.0-32.0); Mean Corpuscular Volume 99.2 fL (81-99); Mean Platelet Vol. 8.6 fl (6.2-12.0); Monocyte# 0.87 X10^3/uL; Monocyte% 8.6 % (0-10); Neutrophil # 6.58 X10^3/uL (2.7-7.7); Neutrophil % 65.3 % (47-70); POSITIVE COUNT NO; POSITIVE DIFFERENTIAL NO; POSITIVE MORPHOLOGY NO; Platelet Count 180 K/mm3 (150-450); RBC Distribution Width CV 14.9 % (11.6-14.6); RBC Distribution Width SD 52.6 fl (35.1-43.9); Red Blood Count 3.82 M/mm3 (4.2-5.4); White Blood Count 10.1 K/mm3 (4.4-11.0)
[2018-08-16 04:56] LABS: Phenytoin (Dilantin) Level 18.6 mL (10.0-20.0)
[2018-08-16 04:57] LABS: ALB/GLOB Ratio 0.9 RATIO (0.9-2.4); AST(SGOT) 17 U/L (15-37); Alanine Aminotransfer ALT/SGPT 25 U/L (13-56); Albumin, Serum 2.8 g/dL (3.2-5.0); Alkaline Phosphatase 70 U/L (45-117); Anion Gap 10 (5-15); BUN 6 mg/dL (7-18); BUN/Creat Ratio 19.4 RATIO (10-20); Calcium,Total 7.2 mg/dL (8.5-10.1); Chloride 108 mmol/L (98-107); Creatinine, Serum 0.31 mg/dL (0.55-1.02); EST Glomerular Filtration Rate 227 mL/min (>60); Est Glom Filt Rate - Afr Amer 274 mL/min (>60); Estimated Creatinine Clearance 48.45 ml/min; Glucose 79 mg/dL (74-106); Potassium 3.7 mmol/L (3.5-5.1); Protein, Total 5.8 g/dL (6.4-8.2); Sodium Level 143 mmol/L (136-145)
[2018-08-16] MEDS: Methadone 10 MG Tablet PO ×3 (05:20→22:03)
[2018-08-16] MEDS: Albuterol 2.5 MG/3 ML VIAL.NEB. INHALATION (05:34)
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
[2018-08-16] MEDS: Hydrocortisone 25 MG Suppository RECTAL ×2 (09:33→22:03)
[2018-08-16] MEDS: Fleet Enema 1 ML RECTAL (09:33)
[2018-08-16] MEDS: Polyethylene Glycol 3350 17 GM PACKET PO (09:33)
[2018-08-16] MEDS: Bisacodyl 10 MG Suppository RECTAL (09:33)
[2018-08-16] MEDS: OXcarbazepine 600 MG Tablet PO ×2 (09:35→22:22)
[2018-08-16] MEDS: Bisacodyl 5 MG Tablet 10 MG PO (10:12)
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
--- NOTE | 2018-08-16 10:45 | RAD_ITS ---
STUDY: X-RAY CHEST REASON FOR EXAM: Female, 67 years old. Hypoxemia. TECHNIQUE: Single AP portable view of the chest. COMPARISON: Comparison is made with prior study dated August 01, 2018. FINDINGS: EKG electrodes are seen. Hyperinflation. Scattered calcified granulomas. There is no demonstrated pleural abnormality. Normal size heart. Normal mediastinum and denae. Normal visualized pulmonary arteries. Normal visualized aortic arch and descending thoracic aorta. Normal visualized thoracic spine. There is degenerative osteoarthritis of the bilateral shoulders. There is no demonstrated abnormality of the visualized soft tissue structures of the upper abdomen. RAD/Chest 1 View (Portable) IMPRESSION: Hyperinflation. The lungs are clear. Electronically Signed: Isaias Munroe, at 15:02 EST , Service support ,
[2018-08-16] MEDS: Phenobarbital 32.4 MG Tablet PO ×2 (11:32→22:03)
[2018-08-16] MEDS: Pramipexole Di-HCl 1 MG Tablet PO (11:33)
--- NOTE | 2018-08-16 12:26 | CASEMGMT ---
Addendum entered by Lina Fairchild 08/16/18 13:31: SW spoke w/pt's son, he states that pt has not seen a neurologist in years. He states he worries about pt, and that pt would benefit from assisted living possibly. Son states however she would not get the aide services she has now. He states pt has been hospitalized in a psychiatric facility in the past. She has been in a few different facilities, managed well with the facility in [place], but did not like [facility]. Son also states that he is POA but Crystal is his ex and is no longer the second contact, it is now his fiance Samson Slade([phone]). SW explained that pt would need to redo the forms, gave him the rack card to set up an appointment with SW to complete new POA forms. SW explained that pt needs to be the one to complete the POA forms and add Samson, take off Crystal. Son states understanding. Son also states he wants to change PCP's. SW gave son list of PCP's in the area. SW will continue to follow and remains available to family for support. CRSITIANO Moreira, JAW SKINNER Original Note: Addendum entered by Lina Fairchild 08/16/18 12:56: GRAHAM received a call back from [facility] Simmons regarding pt. She states pt has not been to see a neurologist in the last year. She has been following up at [facility] at least monthly. Pt does see a psychiatrist for medication management, and did see a psychologist on 08/11 at [facility] for counseling. SW let physician know the above information. Pt's case aide was trying to have pt start utilizing [place] for medications as pt is on a lot of medications at present. Beata is not certain if pt followed through with this or not. Also, as per RN, pt's son is here. Physician plans to speak w/him. SW will continue to follow. CRISTIANO Moreira, JAW SKINNER Original Note: Physician inquired who pt sees for neurology. Last time pt was here she stated she sees no specialists. Pt is asleep at this time. GRAHAM called Dr. Veliz's RN and left a message inquiring about neurologist. GRAHAM also called pt's case aide at [facility] and left a message inquiring about neurologist. Message left for son already, so SW will ask son as well should he return the call. SW will continue to follow. CRISTIANO Moreira, JAW SKINNER
[2018-08-16] MEDS: Magnesium Citrate 300 ML PO (14:02)
[2018-08-16 14:36] LABS: Mucous, Urine 0 SEEN /hpf (<or=2+); Red Blood Cells-Urine 0 SEEN /hpf (0-5); Squamous Epithelial Cells - UA 0 SEEN /hpf (5-10)
[2018-08-16 14:38] LABS: Color, Urine Yellow (Yellow); Glucose, Dipstick 100 mg/dl (Normal); Ketone-Dipstick 50 mg/dl (Negative); Leukocyte Esterase-Dipstick 500 /ul (Negative); Nitrite-Dipstick Negative (Negative); Occult Blood-Urine 10 /ul (Negative); Protein-Dipstick 30 mg/dl (Negative); Urine Clarity Sl. Cloudy (Clear); Urine Urobilinogen 4 mg/dl (Normal); Urine pH 6.5 (5.0 - 8.0)
[2018-08-16 14:43] LABS: Urine Bilirubin Dipstick 3 mg/dL (Negative)
[2018-08-16 14:44] LABS: White Blood Cells >100 SEEN /hpf (0-5)
[2018-08-16 14:45] LABS: Bacteria 3+ /hpf (None Seen)
[2018-08-16] MEDS: Etodolac 200 MG Capsule 400 MG PO (16:10)
[2018-08-16] MEDS: Ceftriaxone 1 GM/50 ML BAG IV (17:03)
[2018-08-16] MEDS: 0.9% NaCl Peripheral Flush Adult/Peds IV (17:03)
[2018-08-16] MEDS: Mirtazapine 15 MG Tablet PO (22:03)
[2018-08-16] MEDS: Pravastatin 40 MG Tablet PO (22:03)
[2018-08-16] MEDS: Latanoprost 0.005% 1 Bottle 1 DRP EACH EYE (22:04)
[2018-08-17] VITALS (12 sets, daily range): BP systolic 97–113; BP diastolic 53–69; PULSE 64–82; RESP 16–20; TEMP 37.1–37.4; O2SAT 96–99
[2018-08-17] MEDS: Methadone 10 MG Tablet PO ×3 (06:00→21:07)
[2018-08-17] MEDS: Levothyroxine 50 MCG Tablet PO (06:00)
[2018-08-17] MEDS: 0.9% NaCl Peripheral Flush Adult/Peds IV ×3 (06:01→12:35)
[2018-08-17 07:08] LABS: Phenytoin (Dilantin) Level 13.8 mL (10.0-20.0)
[2018-08-17] MEDS: Albuterol 2.5 MG/3 ML VIAL.NEB. INHALATION ×3 (07:09→18:35)
[2018-08-17] MEDS: Budesonide Respules 0.5 MG/2 ML AMPUL.NEB. INHALATION ×2 (07:09→18:35)
[2018-08-17 07:47] LABS: Albumin, Serum 2.8 g/dL (3.2-5.0)
--- NOTE | 2018-08-17 09:34 | PCM.PROGNOTE ---
Patient Problems: Active and Suspected Problems (Last Updated 07/14/18 @ 18:36 by Judson Hyman MD) Suicide attempt (Acute) Subjective: Rocephin day #2 All events of the past 24 hours have been reviewed. Afebrile since admission Vital signs stable 96-99% saturated on a 4 L nasal cannula Fair oral intake-took 870 p.o. yesterday. Albumin is 2.8 today with a phenytoin level of 13.8. UA on 08/16/2018 showed greater than 100 WBCs per high-power field with 3+ bacteria and this was a catheterized specimen. She was started on Rocephin. Urine culture is pending. Dilantin level today when corrected for hypoalbuminemia is down to 21. She is much better today. Continues to c/o rectal pain but it is not as bad and the suppositories help. She has had several BM's and the lower abd pain and cramping have resolved Denies dysuria today She is thirsty and is requesting water at her bedside Objective: PHYSICAL EXAM: GENERAL: alert, oriented X 3, Cooperative, NAD, much improved from yesterday but still c/o being sleepy ORAL: moist mucosa, no mucosal lesions, edentulous NECK: No JVD, supple, trachea midline LUNGS: CTA, symmetric chest expansion, diminished HEART: RRR, Normal S1 and S2, no rub, no gallop, no murmur ABDOMEN: soft, NT, ND, BS present, no guarding with palpation EXTREMITIES: no edema, no cyanosis, no calf tenderness, no clubbing SKIN: No rashes, no breakdown NEUROLOGIC: no focal neurologic deficits PSYCH: appropriate, normal affect, pleasant - Physical Exam Vital Signs Temp Pulse Resp BP Pulse Ox 98.8 F 77 16 108/69 99 08/17/18 06:12 08/17/18 06:12 08/17/18 06:12 08/17/18 06:12 08/17/18 06:12 Oxygen Flow Rate (L/min) 4 Oxygen Delivery Method Nasal Cannula Weight: 151 lb 9.6 oz Body Mass Index (BMI) 25.4 Intake and Output for Last 24 Hours 08/15/18 08/16/18 08/17/18 23:59 23:59 23:59 Intake Total 3001 / 3001 870 / 870 240 / 240 Output Total 250 / 250 300 / 300 Balance 2751 / 2751 570 / 570 240 / 240 Laboratory Tests Past 24 Hrs 08/16/18 08/17/18 08/17/18 14:25 06:22 06:22 Albumin 2.8 L Urine Color Yellow Urine Clarity Sl. Cloudy Urine pH 6.5 Ur Specific [place] 1.010 Urine Protein 30 H Urine Glucose (UA) 100 H Urine Ketones 50 H Urine Occult Blood 10 H Urine Nitrite Negative Urine Bilirubin 3 H Urine Urobilinogen 4 H Ur Leukocyte Esterase 500 H Urine RBC 0 SEEN Urine WBC >100 SEEN Ur Squamous Epith Cells 0 SEEN Urine Bacteria 3+ Urine Mucus 0 SEEN Phenytoin 13.8 Medical Necessity - Tobacco Use Smoking Status: Current every day smoker Tobacco Use: Cigarettes Assessment/Plan All Active Problems (Last Updated 07/14/18 @ 18:36 by Judson Hyman MD) Suicide attempt (Acute) HABP (hospital-acquired bacterial pneumonia) (Acute) Impressions 1. encephalopathy at admission - due to intentional OD of her sedating medications? due to Dilantin toxicity? Suicide attempt? One of the adverse reactions of dilantin toxicity is suicidal ideation....also causes constipation. I suspect that the confusion at admission was due to Dilantin toxicity 2. Diantin toxicity - the Dilantin level today when corrected for hypoalbuminemia is still high at 21 3. hx of mental illness - per her son Samson she has had multiple psych admissions in the past 4. seizure disorder on 3 different antiepileptics - phenobarb, dilantin and Trileptal. Has not seen a neurologist in many years and in fact the last neurologist she saw has a few years ago. Dr. Veliz has been managing her antiepileptic drugs 5. History of spinal stenosis 6. Chronic pain syndrome-follows with Dr. Dr. Andujar 7. Tobacco dependence 8. Hypertension 9. Hyperlipidemia 10. Glaucoma 11. COPD 12. Restless leg syndrome 13. Chronic respiratory failure with hypoxemia on 4 L/min of nasal O2 at home 14. Obstructive sleep apnea-noncompliant with CPAP 15. Edentulous 16. chronic methadone use 17. Hypothyroidism - low TSH, T3 and T4 18. Obstipation 19. Grade 3 hemorrhoids-has seen Dr. Dunlap in the past 2 recommended MiraLAX and follow-up with him in 6 weeks. She was seen in January of 2018 Dr. Sebastian will see her today and manage the anti-epileptic drugs Continue to hold phenytoin Recheck phenytoin level in the a.m. and if it is less than 20 will have her evaluated by the crisis counselor Continue the Miralax BID Code Visit Inpatient E&M: 00883 Subs Hosp L2
[2018-08-17] MEDS: Ceftriaxone 1 GM/50 ML BAG IV (10:10)
[2018-08-17] MEDS: Phenobarbital 32.4 MG Tablet PO ×2 (10:11→21:07)
[2018-08-17] MEDS: Etodolac 200 MG Capsule 400 MG PO ×2 (10:12→18:18)
[2018-08-17] MEDS: Aspirin 81 MG TAB.CHEW PO (10:12)
[2018-08-17] MEDS: OXcarbazepine 600 MG Tablet PO (10:12)
[2018-08-17] MEDS: Pramipexole Di-HCl 1 MG Tablet PO (10:13)
[2018-08-17] MEDS: Hydrocortisone 25 MG Suppository RECTAL ×2 (10:21→21:27)
--- NOTE | 2018-08-17 10:21 | CASEMGMT ---
Addendum entered by Lina Fairchild 08/17/18 10:24: SW spoke w/PT, they will see pt today. CRISTIANO Moreira, ENTRY LEVEL STAFF ACCOUNTANT Original Note: Pt is not yet ready for discharge. Pt will be seen by crisis when medically stable. CRISTIANO Moreira, ENTRY LEVEL STAFF ACCOUNTANT
--- NOTE | 2018-08-17 12:25 | CASEMGMT ---
SW spoke w/PT/OT after they worked w/pt. Pt was able to walk but is weak. SW spoke w/pt in room. Pt would not be agreeable to alf placement, she states that she has home health already for therapy through [facility]. Pt states she is at her usual level of mobility and would want to go home from here with home health. The plan as of now is still for pt to be seen by crisis when medically stable. If psych placement is not needed, pt at this time is not agreeable for alf placement for rehab. SW called [facility], pt is with [facility]([phone]) for home care. SW called [facility], they are current w/pt for PT/OT/long-term. SW will let [facility] know when pt is discharged and her disposition. GRAHAM will continue to follow. CRISTIANO Moreira, CAN STACKER
--- NOTE | 2018-08-17 14:25 | CON.PCM_ITS ---
Problem List (1) Change in mental status Status: Acute (2) Phenytoin toxicity Status: Acute Reason for Consult Date of Consultation: 08/17/18 Reason for Consultation: Phenytoin toxicity History of Present Illness: The patient is a 67 year old F with PMH HTN, HLD, H/O seizures, COPD, RLS, chronic pain, CHUY not compliant with CPAP admitted with altered mental status, confusion and possible suicidal ideation. Per patient at present she tells me that she did not attempt to hurt herself but on admission she was found to have superficial lacerations on her wrist and she was very confused at that time, per patient she does not remember doing that. On admission her phenytoin level was high at 21.9, carbamazepine level was low at 0.5 and phenobarbital level was normal at 31. She was found to have UTI on admission for which she has been treated. Per patient at present she denies any confusion, per patient she had seizures for about 40 yrs, last seizure which was GTCs was about 6 months ago, at baseline per patient she is on phenytoin 100 mg 4 times a day, phenobarbital 32.4 mg PO BID and recently has been started on Trileptal 600 mg PO BID by her PCP Dr. Veliz, per patient she has not seen any neurologist for seizures in the past. She lives alone, smokes about 2 PPD, has occasional falls, does not drive and does need some assistance for ADLs. [] Past Medical History Past Medical History (Chronic Problems): Chronic Problems (Last Updated 07/14/18 @ 18:36 by Judson Hyman MD) Tobacco use (Chronic) History of right hip replacement (Chronic) S/P laparoscopic cholecystectomy (Chronic) S/P appendectomy (Chronic) Depression (Chronic) Insomnia (Chronic) She takes Temazepam every night for sleep, prescribed by Dr. Veliz Hypertension (Chronic) Physical debility (Chronic) Degenerative disc disease, lumbar (Chronic) Pain, chronic (Chronic) Seizure disorder (Chronic) Restless leg syndrome (Chronic) COPD (chronic obstructive pulmonary disease) (Chronic) 1 ppd now smoker 4 ppd Obstructive sleep apnea (Chronic) non-compliant with CPAP but has oxygen to wear at night Smokes with greater than 40 pack year history (Chronic) Medical History: Medical History (Last Updated 07/14/18 @ 18:36 by Judson Hyman MD) Depression (Chronic) F32.9 Insomnia (Chronic) G47.00 She takes Temazepam every night for sleep, prescribed by Dr. Veliz Hypertension (Chronic) I10 Physical debility (Chronic) R53.81 Degenerative disc disease, lumbar (Chronic) M51.36 Pain, chronic (Chronic) G89.29 Seizure disorder (Chronic) G40.909 Restless leg syndrome (Chronic) COPD (chronic obstructive pulmonary disease) (Chronic) J44.9 1 ppd now smoker 4 ppd Obstructive sleep apnea (Chronic) G47.33 non-compliant with CPAP but has oxygen to wear at night Smokes with greater than 40 pack year history (Chronic) F17.210 Allergies Penicillins Allergy (Verified 08/12/18 19:08) Anaphylaxis codeine Adverse Reaction (Verified 08/12/18 19:08) Nausea Home Medications: Ambulatory Orders Medication Instructions Recorded Alendronate Sodium [Fosamax] 70 mg PO FR 05/12/16 Etodolac 400 mg PO BID 05/12/16 Temazepam [Restoril] 30 mg PO QHS 06/24/17 Mirtazapine [Remeron] 15 mg PO QHS PRN 07/03/17 Latanoprost 0.005% [Xalatan 1 drp EACH EYE QHS 07/04/17 Opthalmic] Methadone HCl 10 mg PO TID 09/04/17 Phenobarbital 32.4 mg PO BID 11/07/17 Pravastatin [Pravachol] 40 mg PO QHS 11/07/17 Aspirin [Aspirin, Baby] 81 mg PO DAILY@0800 tab.chew 03/07/18 Sennosides/Docusate Sodium 2 each PO BID 04/03/18 [Senna-Docusate Sodium Tablet] Oxcarbazepine [Trileptal] 600 mg PO BID 06/13/18 Phenytoin Sodium Extended 100 mg PO 4X/DAY 06/13/18 [Dilantin] Ranitidine HCl [Zantac] 300 mg PO DAILY 06/13/18 Risperidone 0.25 mg PO DAILY 06/13/18 Ropinirole HCl [Requip] 2 mg PO DAILY 06/13/18 Tolterodine Tartrate [Detrol LA] 4 mg PO DAILY 06/13/18 Albuterol Sulfate [Ventolin Hfa] 1 - 2 puff INHALATION Q6H PRN PRN 07/14/18 Multivitamin with Minerals 1 tab PO DAILY 07/14/18 [Multiple Vitamin] Amlodipine Besylate 2.5 mg PO DAILY 08/15/18 Ergocalciferol [Vitamin D] 50,000 units PO MO 08/15/18 Fluticasone/Vilanterol [Breo 2 puff INHALATION BID 08/15/18 Ellipta 100-25 Mcg INH] Hydrocortisone 1% Crm [Hytone] 1 applicatio TOPICAL 08/15/18 Ipratropium/Albuterol Sulfate 3 ml INHALATION BID 08/15/18 [Duoneb] Metoprolol Tartrate 25 mg PO BID 08/15/18 Nicotine [Nicoderm Cq] 21 mg TOPICAL DAILY 08/15/18 Nystatin 1 applicatio TOPICAL PRN PRN 08/15/18 Potassium Chloride [K-Dur] 10 meq PO DAILY 08/15/18 Surgical History: Surgical History (Last Updated 07/14/18 @ 18:35 by Judson Hyman MD) History of right hip replacement (Chronic) Z96.641 S/P laparoscopic cholecystectomy (Chronic) Z90.49 S/P appendectomy (Chronic) Z90.49 Surgical History: appendectomy, cholecystectomy, - - Fractured right ankle, carpal tunnel surgery, removal of teeth, right ovariectomy and fallopian tube removal. 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 Lives: Alone Smoking Status: Current every day smoker Tobacco Use: Cigarettes Alcohol: None Drugs: None - *Family History Maternal Family History: Family History (Last Reviewed 06/13/18 @ 22:00 by Yunior Heaton MD) Mother Diabetes Heart disease Hypertension CAD (coronary artery disease) CVA (cerebral vascular accident) History Items: Diabetes Paternal Family History: Family History (Last Reviewed 06/13/18 @ 22:00 by Yunior Heaton MD) Mother Diabetes Heart disease Hypertension CAD (coronary artery disease) CVA (cerebral vascular accident) History Items: Cancer - colon Sibling Family History: Family History (Last Reviewed 06/13/18 @ 22:00 by Yunior Heaton MD) Mother Diabetes Heart disease Hypertension CAD (coronary artery disease) CVA (cerebral vascular accident) History Items: No pertinent history Review of Systems Constitutional: Reports: - - complete ROS negative except as documented in HPI Patient Problems: Active and Suspected Problems (Last Updated 07/14/18 @ 18:36 by Judson Hyman MD) Suicide attempt (Acute) Change in mental status (Acute) Phenytoin toxicity (Acute) - Physical Exam General: Alert HEENT: Normocephalic Neck: Supple Lungs: Normal air movement Cardiovascular: Normal S1, Normal S2 Abdomen: Bowel Sounds Present Extremities: No cyanosis Neurological: Cranial nerves II-XII grossly intact, Deep Tendon Reflexes 2+/4 and Symmetrical, Neuro grossly intact, Motor Exam 5/5 strength throughout, Muscle tone normal, Sensory exam intact to light touch and pain, Coordination normal, - Psych/Mental Status: Normal Affect Vital Signs Temp Pulse Resp BP Pulse Ox 98.8 F 75 16 113/58 L 96 08/17/18 10:10 08/17/18 13:38 08/17/18 13:38 08/17/18 10:10 08/17/18 13:38 Oxygen Flow Rate (L/min) 4 Oxygen Delivery Method Nasal Cannula Weight: 68.765 kg Body Mass Index (BMI) 25.4 Intake and Output for Last 24 Hours 08/15/18 08/16/18 08/17/18 23:59 23:59 23:59 Intake Total 3001 / 3001 870 / 870 768 / 768 Output Total 250 / 250 300 / 300 Balance 2751 / 2751 570 / 570 768 / 768 Microbiology Past 72 Hours 08/16/18 14:25 Urine Culture - Preliminary Urine Catheter - Catheter GNR lactose assistant site manager 08/15/18 14:25 Urine Culture - Preliminary Urine Catheter - Catheter GNR lactose assistant site manager Laboratory Tests Past 24 Hrs 08/16/18 08/17/18 08/17/18 14:25 06:22 06:22 Albumin 2.8 L Urine Color Yellow Urine Clarity Sl. Cloudy Urine pH 6.5 Ur Specific [place] 1.010 Urine Protein 30 H Urine Glucose (UA) 100 H Urine Ketones 50 H Urine Occult Blood 10 H Urine Nitrite Negative Urine Bilirubin 3 H Urine Urobilinogen 4 H Ur Leukocyte Esterase 500 H Urine RBC 0 SEEN Urine WBC >100 SEEN Ur Squamous Epith Cells 0 SEEN Urine Bacteria 3+ Urine Mucus 0 SEEN Phenytoin 13.8 Assessment/Plan All Active Problems (Last Updated 07/14/18 @ 18:36 by Judson Hyman MD) Suicide attempt (Acute) Change in mental status (Acute) Phenytoin toxicity (Acute) HABP (hospital-acquired bacterial pneumonia) (Acute) The patient is a 67 year old F with PMH HTN, HLD, H/O seizures, COPD, RLS, chronic pain, CHUY not compliant with CPAP admitted with altered mental status, confusion and possible suicidal ideation. Per patient at present she tells me that she did not attempt to hurt herself but on admission she was found to have superficial lacerations on her wrist and she was very confused at that time, per patient she does not remember doing that. On admission her phenytoin level was high at 21.9, carbamazepine level was low at 0.5 and phenobarbital level was normal at 31. She was found to have UTI on admission for which she has been treated. Per patient at present she denies any confusion, per patient she had seizures for about 40 yrs, last seizure which was GTCs was about 6 months ago, at baseline per patient she is on phenytoin 100 mg 4 times a day, phenobarbital 32.4 mg PO BID and recently has been started on Trileptal 600 mg PO BID by her PCP Dr. Veliz, per patient she has not seen any neurologist for seizures in the past. She lives alone, smokes about 2 PPD, has occasional falls, does not drive and does need some assistance for ADLs. Impression Phenytoin toxicity Metabolic/toxic encephalopathy RLS Plan -Phenytoin level still high. Hold off and avoid phenytoin use -Increase Trileptal to 750 mg PO BID from 600 mg PO BID. -On Phenobarbital 32.4 mg PO BID. Continue home dose -MRI brain w/o contrast -Labs reviewed. check ammonia level. -On Mirapex for RLS. -Seizure precautions. Patient does not drive. Counseled not to drive for 6 months from the last seizure -Fall precautions -GI/DVT prophylaxis -Psychiatry consult for possible suicidal ideation. But at present patient denies any suicidal ideation. Has a sitter -Further medical management per hospitalist team -Please call with questions if any -Follow up with Neurology in 6 weeks -Thank you for allowing us to participate in patient's care and management. Code Visit Inpatient E&M: [id number] Init Hosp L3
--- NOTE | 2018-08-17 14:29 | MRI_ITS ---
STUDY: MRI BRAIN WITHOUT CONTRAST REASON FOR EXAM: Female, 67 years old. Encephalopathy and altered mental status TECHNIQUE: Standardized multiplanar fat and water weighted pulse sequences were obtained. COMPARISON: August 01, 2018 CT brain FINDINGS: There is moderate cerebral atrophy with widening of the extra-axial spaces and ventricular dilatation. There are a limited number of small white matter hyperintensities, distributed throughout the deep white matter tracts of the cerebral hemispheres, consistent with mild chronic white matter ischemic changes. There is no evidence for recent intracranial ischemia or other cause of cytotoxic edema on diffusion weighted imaging (DWI). Normal bilateral basal ganglia. Normal thalami. There is no extra-axial fluid accumulation. Normal flow voids within the major intracranial circulation suggesting patency by spin echo criteria. Normal sella turcica, pituitary gland, infundibular stalk, optic chiasm and hypothalamus. Normal tectal plate and pineal gland. Normal midbrain, dominga and medulla. Normal cerebellum. Normal basal cisterns. Normal bilateral temporal bones. Normal bilateral internal auditory canals. Fluid in the right mastoid air cells. No demonstrated orbital abnormality, within the constraints of a routine brain study. Normal visualized paranasal sinuses. Normal calvarium and skull base. Normal visualized soft tissue structures. Normal visualized upper cervical spine. MRI/Brain without Contrast IMPRESSION: Involutional changes of the brain, as described above. Right mastoid effusion. Electronically Signed: Con Decker MD at 17:02 EST , Service support ,
--- NOTE | 2018-08-17 16:03 | PCA ---
PT OFF FLOOR
[2018-08-17] MEDS: Pravastatin 40 MG Tablet PO (21:06)
[2018-08-17] MEDS: OXcarbazepine 300 MG Tablet 600 MG PO (21:06)
[2018-08-17] MEDS: OXcarbazepine 150 MG Tablet PO (21:07)
[2018-08-17] MEDS: Latanoprost 0.005% 1 Bottle 1 DRP EACH EYE (21:07)
[2018-08-18] VITALS (10 sets, daily range): BP systolic 105–110; BP diastolic 51–68; PULSE 60–77; RESP 16–18; TEMP 36.7–37.5; O2SAT 97–100
[2018-08-18] MEDS: Levothyroxine 50 MCG Tablet PO (05:54)
[2018-08-18] MEDS: Methadone 10 MG Tablet PO ×3 (05:54→21:32)
[2018-08-18 06:31] LABS: Phenytoin (Dilantin) Level 8.6 mL (10.0-20.0)
[2018-08-18] MEDS: Budesonide Respules 0.5 MG/2 ML AMPUL.NEB. INHALATION ×2 (07:31→20:16)
[2018-08-18] MEDS: Albuterol 2.5 MG/3 ML VIAL.NEB. INHALATION ×3 (07:31→20:15)
[2018-08-18] MEDS: 0.9% NaCl Peripheral Flush Adult/Peds IV (09:17)
[2018-08-18] MEDS: Ceftriaxone 1 GM/50 ML BAG IV (09:17)
[2018-08-18] MEDS: OXcarbazepine 300 MG Tablet 600 MG PO ×2 (09:18→21:32)
[2018-08-18] MEDS: Etodolac 200 MG Capsule 400 MG PO ×2 (09:21→18:09)
[2018-08-18] MEDS: Aspirin 81 MG TAB.CHEW PO (09:22)
[2018-08-18] MEDS: Hydrocortisone 25 MG Suppository RECTAL ×2 (09:28→21:32)
[2018-08-18] MEDS: Polyethylene Glycol 3350 17 GM PACKET PO (09:28)
[2018-08-18] MEDS: Phenobarbital 32.4 MG Tablet PO ×2 (09:28→21:32)
[2018-08-18] MEDS: OXcarbazepine 150 MG Tablet PO ×2 (09:46→21:32)
[2018-08-18] MEDS: Pramipexole Di-HCl 1 MG Tablet PO (09:47)
--- NOTE | 2018-08-18 11:10 | CASEMGMT ---
Addendum entered by Lina Fairchild 08/18/18 11:38: Crisis was called, they are to see pt today. CRISTIANO Moreira, KNITTER HELPER Original Note: SW received a message from Beata Simmons with [facility], inquiring about discharge plan. SW called Beata back and left a message([phone]) letting her know that it's uncertain at this time what the plan will be. Beata also requested the discharge instructions be faxed to her([phone]). SW will place a green sheet on the chart for the weekend with all information for pt's services to be reinstated, if pt is not ready to be seen by crisis today, or if she is seen and does not need placement Pt has indicated she would like to return home with home health care that is already in place. CRISTIANO Moreira, KNITTER HELPER
--- NOTE | 2018-08-18 13:02 | NURSING ---
Crisis in to see pt at this time.
--- NOTE | 2018-08-18 13:33 | DCINST_ITS ---
- Discharge Diagnoses Current Active Problems: Current Active and Chronic Problems (Last Updated 07/14/18 @ 18:36 by Judson Hyman MD) Suicide attempt (Acute) Change in mental status (Acute) Phenytoin toxicity (Acute) You will use the following diet at home:: High fiber Your food should be the consistency of: Regular Your liquids should be the consistency of: Regular/Thin Discharge Activity: Return to Normal Activity, May Not Drive Call your doctor if you observe: Fever of 101 or Higher, Shortness of breath, Dizziness, Fainting spells, Chest pain, - - Call your PCP if severe diarrhea ( > 5 stools a day), painful sores in the mouth, painful swallowing, rash or itching. Taking a probiotic such as Lactobacillus or Kefir can help with loose stools while taking antibiotics. Additional Instructions: You will no longer be taking phenytoin/Dilantin. The neurologist, Dr. Sebastian, has increased the Trileptal to 750 mg twice daily. He will continue the same dose of phenobarbital. I am going to have you follow up with the neurologist to manage the seizure medications. You have very bad hemorrhoids and you need to keep your bowel movements very soft. I want you to take Miralax twice a day every day and eat a high fiber diet. The goal is for you to have 1 or 12 soft BM's a day......this will help keep the hemorrhoids from getting worse and will cut down on the pain. If you are unable to do this you will probably need to follow up with Dr. Dunlap for surgery. It would be in your best interest to quit smoking......[place] since you are on oxygen. I have given you a prescription for a nicotine patch. You have an appt with Leobardo Waller at the counselling center TuesdayAugust 22 at 8 AM.......make sure you keep this appt Allergies/Adverse Reactions: Allergies Penicillins Allergy (Verified 08/12/18 19:08) Anaphylaxis codeine Adverse Reaction (Verified 08/12/18 19:08) Nausea Medications to take at Discharge Alendronate Sodium [Fosamax] 70 mg PO FR 05/12/16 Etodolac 400 mg PO BID 05/12/16 Temazepam [Restoril] 30 mg PO QHS 06/24/17 Mirtazapine [Remeron] 15 mg PO QHS PRN 07/03/17 Latanoprost 0.005% [Xalatan Opthalmic] 1 drp EACH EYE QHS 07/04/17 Methadone HCl 10 mg PO TID 09/04/17 Phenobarbital 32.4 mg PO BID 11/07/17 Pravastatin [Pravachol] 40 mg PO QHS 11/07/17 Aspirin [Aspirin, Baby] 81 mg PO DAILY@0800 tab.chew 03/07/18 Sennosides/Docusate Sodium [Senna-Docusate Sodium Tablet] 2 each PO BID 04/03/18 Ranitidine HCl [Zantac] 300 mg PO DAILY 06/13/18 Risperidone 0.25 mg PO DAILY 06/13/18 Ropinirole HCl [Requip] 2 mg PO DAILY 06/13/18 Tolterodine Tartrate [Detrol LA] 4 mg PO DAILY 06/13/18 Albuterol Sulfate [Ventolin Hfa] 1 - 2 puff INHALATION Q6H PRN PRN 07/14/18 Multivitamin with Minerals [Multiple Vitamin] 1 tab PO DAILY 07/14/18 Ergocalciferol [Vitamin D] 50,000 units PO MO 08/15/18 Fluticasone/Vilanterol [Breo Ellipta 100-25 Mcg INH] 2 puff INHALATION BID 08/15/18 Hydrocortisone 1% Crm [Hytone] 1 applicatio TOPICAL 08/15/18 Ipratropium/Albuterol Sulfate [Duoneb] 3 ml INHALATION BID 08/15/18 Metoprolol Tartrate 25 mg PO BID 08/15/18 Nicotine [Nicoderm Cq] 21 mg TOPICAL DAILY 08/15/18 Nystatin 1 applicatio TOPICAL PRN PRN 08/15/18 Potassium Chloride [K-Dur] 10 meq PO DAILY 08/15/18 Cefadroxil 1 gm PO DAILY #7 tablet 08/18/18 Hydrocortisone [Anusol Hc] 25 mg RECTAL BID #14 suppos. 08/18/18 Levothyroxine [Synthroid] 50 mcg PO DAILY@0600 #30 tablet 08/18/18 Nicotine [Nicoderm Cq] 21 mg TRANSDERM. DAILY #28 patch 08/18/18 Oxcarbazepine [Trileptal] 150 mg PO BID #60 tablet 08/18/18 Oxcarbazepine [Trileptal] 600 mg PO BID #60 tablet 08/18/18 The following prescriptions were given: Cefadroxil 1 gm PO DAILY #7 tablet Levothyroxine [Synthroid] 50 mcg PO DAILY@0600 #30 tablet Nicotine [Nicoderm Cq] 21 mg TRANSDERM. DAILY #28 patch Hydrocortisone [Anusol Hc] 25 mg RECTAL BID #14 suppos. Oxcarbazepine [Trileptal] 150 mg PO BID #60 tablet Oxcarbazepine [Trileptal] 600 mg PO BID #60 tablet Primary Care Physician: Patel Veliz Chi, MD [Primary Care Provider] - Please follow up with your Primary Care Physician in: 1 week Test Results: Test results from this visit will be discussed in further detail at your follow- up appointment, if applicable. Please Follow Up With: counselling center When: August 22 at 0800 with Leobardo Waller Please Follow Up With: Tran Sebastian MD When: 1 MONTH Proposed Discharge Date: 08/18/18
--- NOTE | 2018-08-18 13:41 | CASEMGMT ---
Addendum entered by Lina Fairchild 08/18/18 14:01: GRAHAM faxed discharge instructions and order to both [facility] and to Beata at [facility]. CRISTIANO Moreira, BEHAVIORAL THERAPIST Original Note: Pt has been cleared by crisis to go home. SW spoke w/pt in room, she still is wanting to go home. SW explained will call her service providers to let them know, offered to call her son, pt agreeable. GRAHAM asked about pt getting home, she initially said she would like a wheelchair van ride home. GRAHAM called pt's son Yaakov. GRAHAM explained that pt has been cleared by crisis and is wanting to go home, so she will be discharged today. Yaakov is able to come pickling tank operator pt this afternoon. SW let pt know that her son can actually pick her up, she is agreeable to this. GRAHAM called [facility], let them know pt is going home today. GRAHAM called [facility], let them know pt will be going home today. GRAHAM called [facility], let them know also pt is going home today. GRAHAM called [facility], Beata Chen did not answer her phone, GRAHAM let the covering business case analyst know pt is going home today. Once the discharge instructions are completed, GRAHAM will fax them to Beata and to [facility]. CRISTIANO Moreira, BEHAVIORAL THERAPIST
--- NOTE | 2018-08-18 13:46 | DS.PCM_ITS ---
Discharge Date and Diagnosis - Problem List Patient Problems: Active and Suspected Problems (Last Updated 07/14/18 @ 18:36 by Judson Hyman MD) Hypothyroidism (Acute) Urinary tract infection (Acute) Toxic metabolic encephalopathy (Acute) Suicide attempt (Acute) Phenytoin toxicity (Acute) Date of Admission: 08/15/18 Date of Discharge: 08/18/18 - Primary Discharge Diagnosis Active and Suspected Problems (Last Updated 07/14/18 @ 18:36 by Judson Hyman MD) Toxic metabolic encephalopathy (Acute) Suicide attempt (Acute) Phenytoin toxicity (Acute) Hypothyroidism (Acute) Urinary tract infection (Acute) - Secondary Discharge Diagnosis Chronic Problems (Last Updated 07/14/18 @ 18:36 by Judson Hyman MD) Grade III hemorrhoids (Chronic) Glaucoma (Chronic) Obstipation (Chronic) Edentulous (Chronic) Chronic hypoxemic respiratory failure (Chronic) Tobacco use (Chronic) Depression (Chronic) Insomnia (Chronic) She takes Temazepam every night for sleep, prescribed by Dr. Veliz Hypertension (Chronic) Physical debility (Chronic) Degenerative disc disease, lumbar (Chronic) Pain, chronic (Chronic) Seizure disorder (Chronic) Restless leg syndrome (Chronic) COPD (chronic obstructive pulmonary disease) (Chronic) 1 ppd now smoker 4 ppd Obstructive sleep apnea (Chronic) non-compliant with CPAP but has oxygen to wear at night Smokes with greater than 40 pack year history (Chronic) Hospital Course and Treatment Imaging Results: Clinical Impression(s) from Imaging Studies Chest X-Ray 08/16/18 10:45 IMPRESSION: Hyperinflation. The lungs are clear. Electronically Signed: Isaias Munroe, at 15:02 EST , Service support , Brain MRI 08/17/18 14:29 IMPRESSION: Involutional changes of the brain, as described above. Right mastoid effusion. Electronically Signed: Con Decker MD at 17:02 EST , Service support , Laboratory Results - last 24 hr 08/17/18 08/18/18 14:48 05:50 Ammonia 40.0 H Phenytoin 8.6 L Microbiology 08/16/18 14:25 Urine Catheter - Catheter Urine Culture - Final Klebsiella pneumoniae sp pneum 08/15/18 14:25 Urine Catheter - Catheter Urine Culture - Final Klebsiella pneumoniae sp pneum Consultations 08/15/18 15:55 Consult: Mental Health/Crisis Routine Reason for consult?: suicide attempt Date Notified:: 08/18/18 Time notified:: 07:40 Operations: None Procedures: None Summary of Care Provided: Ms Sandoval is a 67 YOF with a PMH of tobacco dependence, hypertension, hyperlipidemia, glaucoma, seizure disorder, COPD, restless leg syndrome, chronic pain syndrome(managed by Dr. Andujar), spinal stenosis, chronic respiratory failure with hypoxemia on 4 L/min of oxygen at home, narcotic dependence and CHUY (noncompliant with CPAP) who was brought to the ED by EMS with a history of being found with decreased responsiveness and superficial lacerations to her wrists. She reported to the emergency room physician that she wanted to kill herself for several months but finally decided to do it. She was very lethargic upon presentation to the emergency room and confused. She was unable to give a good history. Vital signs in the ED were temp 97, heart rate 69, blood pressure 124/58, respiratory rate 16 and she was 96% saturated on a 2 L nasal cannula. White blood cell count was normal at 6.1 with an unremarkable differential. Hemoglobin and platelets were within normal limits. BMP was unremarkable. Phosphorus and magnesium were within normal limits. TSH was low at 0.29 and the free T4 and free T3 were also low. Urine drug screen was positive for methadone, barbiturates and benzodiazepines. Dilantin level was 21.9 and the ethyl alcohol was less than 3. Patient later became more alert and she denied any suicidal ideation and stated that this was homemade up. A pink slip was performed. Patient Problems: Active and Suspected Problems (Last Updated 07/14/18 @ 18:36 by Judson Hyman MD) Hypothyroidism (Acute) Urinary tract infection (Acute) Toxic metabolic encephalopathy (Acute) Suicide attempt (Acute) Phenytoin toxicity (Acute) - Physical Exam Vital Signs Temp Pulse Resp BP Pulse Ox 98.1 F 77 18 105/51 L 100 08/18/18 09:12 08/18/18 12:00 08/18/18 09:12 08/18/18 09:12 08/18/18 09:12 Oxygen Flow Rate (L/min) 4 Oxygen Delivery Method Nasal Cannula Weight: 151 lb 9.6 oz Body Mass Index (BMI) 25.4 Intake and Output for Last 24 Hours 08/16/18 08/17/18 08/18/18 23:59 23:59 23:59 Intake Total 870 / 870 968 / 968 120 / 120 Output Total 300 / 300 Balance 570 / 570 968 / 968 120 / 120 Microbiology Past 72 Hours 08/16/18 14:25 Urine Culture - Final Urine Catheter - Catheter Klebsiella pneumoniae sp pneum 08/15/18 14:25 Urine Culture - Final Urine Catheter - Catheter Klebsiella pneumoniae sp pneum Laboratory Tests Past 24 Hrs 08/17/18 08/18/18 14:48 05:50 Ammonia 40.0 H Phenytoin 8.6 L Discharge Activity: Return to Normal Activity, May Not Drive Call your doctor if you observe: Fever of 101 or Higher, Shortness of breath, Dizziness, Fainting spells, Chest pain, - - Call your PCP if severe diarrhea ( > 5 stools a day), painful sores in the mouth, painful swallowing, rash or itching. Taking a probiotic such as Lactobacillus or Kefir can help with loose stools while taking antibiotics. Home Medications: Medications to take at Discharge Alendronate Sodium [Fosamax] 70 mg PO FR 05/12/16 Etodolac 400 mg PO BID 05/12/16 Temazepam [Restoril] 30 mg PO QHS 06/24/17 Mirtazapine [Remeron] 15 mg PO QHS PRN 07/03/17 Latanoprost 0.005% [Xalatan Opthalmic] 1 drp EACH EYE QHS 07/04/17 Methadone HCl 10 mg PO TID 09/04/17 Phenobarbital 32.4 mg PO BID 11/07/17 Pravastatin [Pravachol] 40 mg PO QHS 11/07/17 Aspirin [Aspirin, Baby] 81 mg PO DAILY@0800 tab.chew 03/07/18 Sennosides/Docusate Sodium [Senna-Docusate Sodium Tablet] 2 each PO BID 04/03/18 Ranitidine HCl [Zantac] 300 mg PO DAILY 06/13/18 Risperidone 0.25 mg PO DAILY 06/13/18 Ropinirole HCl [Requip] 2 mg PO DAILY 06/13/18 Tolterodine Tartrate [Detrol LA] 4 mg PO DAILY 06/13/18 Albuterol Sulfate [Ventolin Hfa] 1 - 2 puff INHALATION Q6H PRN PRN 07/14/18 Multivitamin with Minerals [Multiple Vitamin] 1 tab PO DAILY 07/14/18 Ergocalciferol [Vitamin D] 50,000 units PO MO 08/15/18 Fluticasone/Vilanterol [Breo Ellipta 100-25 Mcg INH] 2 puff INHALATION BID 08/15/18 Hydrocortisone 1% Crm [Hytone] 1 applicatio TOPICAL 08/15/18 Ipratropium/Albuterol Sulfate [Duoneb] 3 ml INHALATION BID 08/15/18 Metoprolol Tartrate 25 mg PO BID 08/15/18 Nicotine [Nicoderm Cq] 21 mg TOPICAL DAILY 08/15/18 Nystatin 1 applicatio TOPICAL PRN PRN 08/15/18 Potassium Chloride [K-Dur] 10 meq PO DAILY 08/15/18 Cefadroxil 1 gm PO DAILY #7 tablet 08/18/18 Hydrocortisone [Anusol Hc] 25 mg RECTAL BID #14 suppos. 08/18/18 Levothyroxine [Synthroid] 50 mcg PO DAILY@0600 #30 tablet 08/18/18 Nicotine [Nicoderm Cq] 21 mg TRANSDERM. DAILY #28 patch 08/18/18 Oxcarbazepine [Trileptal] 150 mg PO BID #60 tablet 08/18/18 Oxcarbazepine [Trileptal] 600 mg PO BID #60 tablet 08/18/18 Polyethylene Glycol 3350 [Miralax] 17 gm PO BID #1 bottle 08/18/18 Following Prescrptions Were Given to Patient: Cefadroxil 1 gm PO DAILY #7 tablet Levothyroxine [Synthroid] 50 mcg PO DAILY@0600 #30 tablet Nicotine [Nicoderm Cq] 21 mg TRANSDERM. DAILY #28 patch Hydrocortisone [Anusol Hc] 25 mg RECTAL BID #14 suppos. Oxcarbazepine [Trileptal] 150 mg PO BID #60 tablet Oxcarbazepine [Trileptal] 600 mg PO BID #60 tablet Polyethylene Glycol 3350 [Miralax] 17 gm PO BID #1 bottle Primary Care Physician: Patel Veliz Chi, MD [Primary Care Provider] - Please follow up with your Primary Care Physician in: 1 week [facility] Follow Up With[facility] When: August 22 at 0800 with Leobardo Waller Please Follow Up With: Tran Sebastian MD When: 1 MONTH Medical Necessity - Tobacco Use Smoking Status: Current every day smoker Tobacco Use: Cigarettes
--- NOTE | 2018-08-18 15:15 | CASEMGMT ---
Addendum entered by Khurram Lipscomb 08/18/18 16:41: ERIC BELLE informed by GRAHAM Evans, that pt is now agreeable to going to [facility]. Call placed to Yesy @ [facility] and she was made aware and made aware that [facility] referral has been cancelled. Dr Lnych notified that pt agreeable to going to SNF/[facility]. Per Cristina, precert to [facility] will be started on Tuesday. Original Note: Addendum entered by Khurram Lipscomb 08/18/18 16:00: PT eval has been completed and verbal report given to this RN YOSHI. She stated pt is not safe to return home and SNF is recommended. ERIC CM to room to talk with pt again. Pt continues to refuse to go to a SNF. Dr Lynch notified of PT's eval/recommendations and also that pt is refusing to go to a SNF. Dr Lynch inquired if APS should be contacted. Call placed to GRAHAM Evans, and she was notified of all of the above and up to talk with pt at this time. Call received from Yesy from [facility] who states that they were not aware of pt's recent suicide attempt/ideations and that they are unable to take pt with this kind of mental health needs. She was made aware Crisis has seen pt today and that she was cleared to return home, but Yesy states they are still unable to accept pt. Yesy states she will contact [facility] agency to see if they are able to accept pt. Original Note: Addendum entered by Khurram Lipscomb 08/18/18 15:50: ERIC BELLE in room to talk with pt and son. Intro self to pt. Discussed pt's concerns of discharging home with her and pt. Pt continues to say that she is not ready to go home. Pt states that she is weak and that she will be by herself until Tuesday when her aide comes to see her. Discussed SNF with pt and she adamantly stated on several occasions that she does not want to go to a SNF, stating, I've already been to a place like that and all they want to do is therapy. That's just stupid when I already have therapy at home. Explained that with a SNF that she would have 24-hr care but she continues to refuse SNF and stated, I'm not going there. I'll just go home. Original Note: RN YOSHI NOTE : RN YOSHI notified that pt's son, Yaakov, would like to talk to CM. This RN CM met with Yaakov. Introduced self to Yaakov. Yaakov states I am concerned because my mom is saying she does not feel that she is ready to go home. ERIC BELLE asked Yaakov if his mother relayed to him why she was feeling this way. Yaakov stated, because she doesn't feel good, is sick. Yaakov stated, she's going to be home alone all weekend until Tuesday and I'm concerned for her. We've been through this so many times and I know what's going to happen when she says this, we'll just be right back in here. Dr Lynch notified and states that pt is medically stable able to be discharged. Pt has been seen by Crisis and has been cleared to return home. Call placed to GRAHAM Evans human resources talent manager to inform her of son's concerns and she states she will have SW come talk to pt. Pt's RN, Leah, made aware of all of the above and states she will talk with pt as well. Mariam LARSON RN, CM
--- NOTE | 2018-08-18 15:27 | NURSING ---
Informed by Rosas REYES CM, that pt just doesn't feel good to go home. Bela Sandoval did repeat this to this nurse. When further investigated, pt said I just don't feel good all over. Explained she feels anxious. Does not want to go home b/c she will be home all on her own all weekend. Khurram called Dr. Lynch informed, no new orders. Dr. Lynch still wants pt to go home.
--- NOTE | 2018-08-18 17:00 | CASEMGMT ---
Social Work: Met with patient and son in room to discuss D/C planning. Patient just completed PT evaluation and is now agreeable to SNF placement for short term therapy. Patient states that [facility] is the preferred SNF and is giving this SW permission to call for bed availability. Patient tearful throughout meeting with SW stating I would rather go home. Patient's son also in agreement with SNF placement and is supportive to patient in decision making. Emotional support and active listening provided. SW to continue to follow to assist as needed with D/C planning and emotional support. TC to Rebeca at [facility]. Rebeca states that female beds are available and is asking this SW to send clinicals for review. Clinicals faxed to [facility]. PLAN: Tentative plan is for patient to be discharged to [facility] once accepted and insurance pre-cert obtained. CRISTIANO Luna
--- NOTE | 2018-08-18 18:48 | PCM.PROGNOTE ---
Patient Problems: Active and Suspected Problems (Last Updated 07/14/18 @ 18:36 by Judson Hyman MD) Suicide attempt (Acute) Phenytoin toxicity (Acute) Subjective: We Rocephin All of the events of the past 24 hours been reviewed. Afebrile. Vital signs stable. Phenytoin level is therapeutic today but, phenytoin has been discontinued by Dr. Sebastian. No seizure activity Urine culture grew Klebsiella pneumoniae which is sensitive to ceftriaxone and first generation cephalosporins. pt states that she does not feel that she is ready to go home. When anyone enters the room she begins shaking her head but, if you watch her from the door she has no tremor and is watching TV in no distress. She was seen by the crisis counselor today and was not suicidal. The counselor felt she was stable for discharge. He stated she did not feel that she was stable to go home we offered half-way but she initially refused. She was seen by physical therapy and they do not feel she is safe to go home. She has been seen on prior admissions by the same physical therapist who states that she has declined significantly on every visit over the past several months. She decided that she would go to half-way. Will need to precertification so she will be in the hospital throughout the weekend. Objective: GENERAL: alert, oriented X 3, Cooperative, NAD, much improved from yesterday but still c/o being sleepy ORAL: moist mucosa, no mucosal lesions, edentulous NECK: No JVD, supple, trachea midline LUNGS: CTA, symmetric chest expansion, diminished HEART: RRR, Normal S1 and S2, no rub, no gallop, no murmur ABDOMEN: soft, NT, ND, BS present, no guarding with palpation EXTREMITIES: no edema, no cyanosis, no calf tenderness, no clubbing SKIN: No rashes, no breakdown NEUROLOGIC: no focal neurologic deficits PSYCH: appropriate, normal affect, pleasant, I feel that she is being somewhat manipulative tremoring her head when anyone walks in the room but, never on camera when she is in the room by herself or when I watch her from the doorway - Physical Exam Vital Signs Temp Pulse Resp BP Pulse Ox 98.4 F 77 18 110/68 98 08/18/18 15:15 08/18/18 15:15 08/18/18 15:15 08/18/18 15:15 08/18/18 15:15 Oxygen Flow Rate (L/min) 4 Oxygen Delivery Method Room Air Weight: 151 lb 9.6 oz Body Mass Index (BMI) 25.4 Intake and Output for Last 24 Hours 08/16/18 08/17/18 08/18/18 23:59 23:59 23:59 Intake Total 870 / 870 968 / 968 340 / 340 Output Total 300 / 300 Balance 570 / 570 968 / 968 340 / 340 Microbiology Past 72 Hours 08/16/18 14:25 Urine Culture - Final Urine Catheter - Catheter Klebsiella pneumoniae sp pneum 08/15/18 14:25 Urine Culture - Final Urine Catheter - Catheter Klebsiella pneumoniae sp pneum Laboratory Tests Past 24 Hrs 08/18/18 05:50 Phenytoin 8.6 L Medical Necessity - Tobacco Use Smoking Status: Current every day smoker Tobacco Use: Cigarettes Assessment/Plan All Active Problems (Last Updated 07/14/18 @ 18:36 by Judson Hyman MD) Hypothyroidism (Acute) Urinary tract infection (Acute) Toxic metabolic encephalopathy (Acute) Suicide attempt (Acute) Phenytoin toxicity (Acute) HABP (hospital-acquired bacterial pneumonia) (Ruled-out) Impressions 1. encephalopathy at admission - due to intentional OD of her sedating medications? due to Dilantin toxicity? Suicide attempt? One of the adverse reactions of dilantin toxicity is suicidal ideation....also causes constipation. I suspect that the confusion at admission was due to Dilantin toxicity 2. Diantin toxicity - the Dilantin level today when corrected for hypoalbuminemia is still high at 21 3. hx of mental illness - per her son Samson she has had multiple psych admissions in the past 4. seizure disorder on 3 different antiepileptics - phenobarb, dilantin and Trileptal. Has not seen a neurologist in many years and in fact the last neurologist she saw has a few years ago. Dr. Veliz has been managing her antiepileptic drugs 5. History of spinal stenosis 6. Chronic pain syndrome-follows with Dr. Dr. Andujar 7. Tobacco dependence 8. Hypertension 9. Hyperlipidemia 10. Glaucoma 11. COPD 12. Restless leg syndrome 13. Chronic respiratory failure with hypoxemia on 4 L/min of nasal O2 at home 14. Obstructive sleep apnea-noncompliant with CPAP 15. Edentulous 16. chronic methadone use 17. Hypothyroidism - low TSH, T3 and T4 18. Obstipation 19. Grade 3 hemorrhoids-has seen Dr. Dunlap in the past 2 recommended MiraLAX and follow-up with him in 6 weeks. She was seen in January of 2018 20. Urinary tract infection secondary to Klebsiella pneumoniae Will go to SNF at [facility] and I suspect she needs to be placed.....she is no longer able to take care of herself and I think she requires 24 H supervision.[facility] will not pick her up again because of the suicide attempt. If she attempts to go home we will need to call APS. Discontinue Rocephin and start Duricef 500 mg p.o. twice daily Code Visit Inpatient E&M: 62589 Subs Hosp L2
--- NOTE | 2018-08-18 18:54 | PN_ITS ---
Patient Problems: Active and Suspected Problems (Last Updated 07/14/18 @ 18:36 by Judson Hyman MD) Suicide attempt (Acute) Phenytoin toxicity (Acute) Subjective: We Rocephin All of the events of the past 24 hours been reviewed. Afebrile. Vital signs stable. Phenytoin level is therapeutic today but, phenytoin has been discontinued by Dr. Sebastian. No seizure activity Urine culture grew Klebsiella pneumoniae which is sensitive to ceftriaxone and first generation cephalosporins. pt states that she does not feel that she is ready to go home. When anyone enters the room she begins shaking her head but, if you watch her from the door she has no tremor and is watching TV in no distress. She was seen by the crisis counselor today and was not suicidal. The counselor felt she was stable for discharge. He stated she did not feel that she was stable to go home we offered [facility] but she initially refused. She was seen by physical therapy and they do not feel she is safe to go home. She has been seen on prior admissions by the same physical therapist who states that she has declined significantly on every visit over the past several months. She decided that she would go to [facility]. Will need to precertification so she will be in the hospital throughout the weekend. Objective: GENERAL: alert, oriented X 3, Cooperative, NAD, much improved from yesterday but still c/o being sleepy ORAL: moist mucosa, no mucosal lesions, edentulous NECK: No JVD, supple, trachea midline LUNGS: CTA, symmetric chest expansion, diminished HEART: RRR, Normal S1 and S2, no rub, no gallop, no murmur ABDOMEN: soft, NT, ND, BS present, no guarding with palpation EXTREMITIES: no edema, no cyanosis, no calf tenderness, no clubbing SKIN: No rashes, no breakdown NEUROLOGIC: no focal neurologic deficits PSYCH: appropriate, normal affect, pleasant, I feel that she is being somewhat manipulative tremoring her head when anyone walks in the room but, never on camera when she is in the room by herself or when I watch her from the doorway - Physical Exam Vital Signs Temp Pulse Resp BP Pulse Ox 98.4 F 77 18 110/68 98 08/18/18 15:15 08/18/18 15:15 08/18/18 15:15 08/18/18 15:15 08/18/18 15:15 Oxygen Flow Rate (L/min) 4 Oxygen Delivery Method Room Air Weight: 151 lb 9.6 oz Body Mass Index (BMI) 25.4 Intake and Output for Last 24 Hours 08/16/18 08/17/18 08/18/18 23:59 23:59 23:59 Intake Total 870 / 870 968 / 968 340 / 340 Output Total 300 / 300 Balance 570 / 570 968 / 968 340 / 340 Microbiology Past 72 Hours 08/16/18 14:25 Urine Culture - Final Urine Catheter - Catheter Klebsiella pneumoniae sp pneum 08/15/18 14:25 Urine Culture - Final Urine Catheter - Catheter Klebsiella pneumoniae sp pneum Laboratory Tests Past 24 Hrs 08/18/18 05:50 Phenytoin 8.6 L Medical Necessity - Tobacco Use Smoking Status: Current every day smoker Tobacco Use: Cigarettes Assessment/Plan All Active Problems (Last Updated 07/14/18 @ 18:36 by Judson Hyman MD) Hypothyroidism (Acute) Urinary tract infection (Acute) Toxic metabolic encephalopathy (Acute) Suicide attempt (Acute) Phenytoin toxicity (Acute) HABP (hospital-acquired bacterial pneumonia) (Ruled-out) Impressions 1. encephalopathy at admission - due to intentional OD of her sedating medications? due to Dilantin toxicity? Suicide attempt? One of the adverse reactions of dilantin toxicity is suicidal ideation....also causes constipation. I suspect that the confusion at admission was due to Dilantin toxicity 2. Diantin toxicity - the Dilantin level today when corrected for hypoalbuminemia is still high at 21 3. hx of mental illness - per her son Samson she has had multiple psych admissions in the past 4. seizure disorder on 3 different antiepileptics - phenobarb, dilantin and Trileptal. Has not seen a neurologist in many years and in fact the last neurologist she saw has a few years ago. Dr. Veliz has been managing her antiepileptic drugs 5. History of spinal stenosis 6. Chronic pain syndrome-follows with Dr. Dr. Andujar 7. Tobacco dependence 8. Hypertension 9. Hyperlipidemia 10. Glaucoma 11. COPD 12. Restless leg syndrome 13. Chronic respiratory failure with hypoxemia on 4 L/min of nasal O2 at home 14. Obstructive sleep apnea-noncompliant with CPAP 15. Edentulous 16. chronic methadone use 17. Hypothyroidism - low TSH, T3 and T4 18. Obstipation 19. Grade 3 hemorrhoids-has seen Dr. Dunlap in the past 2 recommended MiraLAX and follow-up with him in 6 weeks. She was seen in January of 2018 20. Urinary tract infection secondary to Klebsiella pneumoniae Will go to SNF at [facility] and I suspect she needs to be placed.....she is no longer able to take care of herself and I think she requires 24 H supervision.[facility] will not pick her up again because of the suicide attempt. If she attempts to go home we will need to call APS. Discontinue Rocephin and start Duricef 500 mg p.o. twice daily Code Visit Inpatient E&M: 07831 Subs Hosp L2
[2018-08-18] MEDS: Pravastatin 40 MG Tablet PO (21:32)
[2018-08-18] MEDS: Latanoprost 0.005% 1 Bottle 1 DRP EACH EYE (21:32)
[2018-08-18] MEDS: Cefadroxil 500 MG CAPSULE PO (21:33)
[2018-08-18] MEDS: Mirtazapine 15 MG Tablet PO (21:35)
[2018-08-19] VITALS (8 sets, daily range): BP systolic 102–117; BP diastolic 54–75; PULSE 57–77; RESP 16–21; TEMP 36.6–37.2; O2SAT 93–100
[2018-08-19] MEDS: Methadone 10 MG Tablet PO ×3 (05:09→21:33)
[2018-08-19] MEDS: Levothyroxine 50 MCG Tablet PO (05:09)
[2018-08-19] MEDS: Budesonide Respules 0.5 MG/2 ML AMPUL.NEB. INHALATION ×2 (07:25→20:11)
[2018-08-19] MEDS: Albuterol 2.5 MG/3 ML VIAL.NEB. INHALATION ×2 (07:26→20:10)
[2018-08-19] MEDS: Aspirin 81 MG TAB.CHEW PO (08:14)
[2018-08-19] MEDS: Etodolac 200 MG Capsule 400 MG PO ×2 (08:14→16:37)
[2018-08-19] MEDS: Cefadroxil 500 MG CAPSULE PO ×2 (08:15→21:33)
[2018-08-19] MEDS: Pramipexole Di-HCl 1 MG Tablet PO ×2 (08:15→21:33)
[2018-08-19] MEDS: OXcarbazepine 300 MG Tablet 600 MG PO ×2 (08:17→21:34)
[2018-08-19] MEDS: OXcarbazepine 150 MG Tablet PO ×2 (08:17→21:37)
[2018-08-19] MEDS: Polyethylene Glycol 3350 17 GM PACKET PO (08:17)
[2018-08-19] MEDS: Phenobarbital 32.4 MG Tablet PO ×2 (08:21→21:33)
--- NOTE | 2018-08-19 10:44 | PCM.PROGNOTE ---
Patient Problems: Active and Suspected Problems (Last Updated 07/14/18 @ 18:36 by Judson Hyman MD) Suicide attempt (Acute) Phenytoin toxicity (Acute) Subjective: Day #4 antibiotics for Klebsiella pneumoniae UTI Afebrile, vital signs stable Last BM was 08/18/18 Incontinent of both urine and stool - states this has been going on for about 8 years......stress incontinence No seizures Denies any suicidal ideation She is c/o restless - Physical Exam General: Alert, Cooperative, No apparent distress HEENT: Atraumatic Oral: Moist Mucosa Neck: Supple Lungs: Clear to auscultation, Diminished Cardiovascular: Regular rate, Regular Rhythm, Normal S2, No Gallop Abdomen: Bowel Sounds Present, Soft, Non Tender, Non-Distended Extremities: No edema Skin: No rashes, No breakdown Psych/Mental Status: Appropriate Vital Signs Temp Pulse Resp BP Pulse Ox 97.9 F 57 L 16 112/57 L 100 08/19/18 07:46 08/19/18 07:46 08/19/18 07:46 08/19/18 07:46 08/19/18 07:46 Oxygen Flow Rate (L/min) 4 Oxygen Delivery Method Nasal Cannula Weight: 155 lb Body Mass Index (BMI) 25.4 Intake and Output for Last 24 Hours 08/17/18 08/18/18 08/19/18 23:59 23:59 23:59 Intake Total 968 / 968 820 / 820 120 / 120 Balance 968 / 968 820 / 820 120 / 120 Microbiology Past 72 Hours 08/16/18 14:25 Urine Culture - Final Urine Catheter - Catheter Klebsiella pneumoniae sp pneum 08/15/18 14:25 Urine Culture - Final Urine Catheter - Catheter Klebsiella pneumoniae sp pneum Medical Necessity - Tobacco Use Smoking Status: Current every day smoker Tobacco Use: Cigarettes Assessment/Plan All Active Problems (Last Updated 07/14/18 @ 18:36 by Judson Hyman MD) Hypothyroidism (Acute) Urinary tract infection (Acute) Toxic metabolic encephalopathy (Acute) Suicide attempt (Acute) Phenytoin toxicity (Acute) HABP (hospital-acquired bacterial pneumonia) (Ruled-out) Impressions 1. encephalopathy at admission - due to intentional OD of her sedating medications? due to Dilantin toxicity? Suicide attempt? One of the adverse reactions of dilantin toxicity is suicidal ideation....also causes constipation. I suspect that the confusion at admission was due to Dilantin toxicity 2. Diantin toxicity - the Dilantin level today when corrected for hypoalbuminemia is still high at 21 3. hx of mental illness - per her son Samson she has had multiple psych admissions in the past 4. seizure disorder on 3 different antiepileptics - phenobarb, dilantin and Trileptal. Has not seen a neurologist in many years and in fact the last neurologist she saw has a few years ago. Dr. Veliz has been managing her antiepileptic drugs 5. History of spinal stenosis 6. Chronic pain syndrome-follows with Dr. Dr. Andujar 7. Tobacco dependence 8. Hypertension 9. Hyperlipidemia 10. Glaucoma 11. COPD 12. Restless leg syndrome 13. Chronic respiratory failure with hypoxemia on 4 L/min of nasal O2 at home 14. Obstructive sleep apnea-noncompliant with CPAP 15. Edentulous 16. chronic methadone use 17. Hypothyroidism - low TSH, T3 and T4 18. Obstipation 19. Grade 3 hemorrhoids-has seen Dr. Dunlap in the past 2 recommended MiraLAX and follow-up with him in 6 weeks. She was seen in January of 2018 20. Urinary tract infection secondary to Klebsiella pneumoniae SNF at [facility] the Mirapex and start Requip 2 mg daily....per pt request....states the Requip works better Recheck lab in the a.m. Encouraged her to do physical therapy because if she does not do physical therapy and she has been laying in bed for 4-5 days now she will continue to lose strength. We have been cuong to wean the O2 - probably because she haS not been smoking since admission to the hospital Code Visit Inpatient E&M: 18441 Subs Hosp L1
--- NOTE | 2018-08-19 12:24 | NURSING ---
decreased o2 to 2l nc
[2018-08-19] MEDS: Hydrocortisone 25 MG Suppository RECTAL (13:26)
--- NOTE | 2018-08-19 16:21 | CASEMGMT ---
Social Work MS2 Handoff report received from Cristina CARTER indicating the new plan is for patient to go to SNF. Patient changed mind late in the day on 08.18.2018 and agreed to SNF placement. Need precert for SNF level of care, which cannot be started until Tuesday. Plan: working on placement at [place] and precert to be initiated on Tuesday08.21.2018. -CRISTIANO Solis, TRAINING DEVELOPMENT DIRECTOR
[2018-08-19] MEDS: Mirtazapine 15 MG Tablet PO (21:33)
[2018-08-19] MEDS: Pravastatin 40 MG Tablet PO (21:35)
[2018-08-19] MEDS: Latanoprost 0.005% 1 Bottle 1 DRP EACH EYE (21:35)
[2018-08-20 03:05] VITALS: BP 93/48; PULSE 68; RESP 16; TEMP 36.3; O2SAT 97
[2018-08-20] MEDS: 0.9% NaCl Peripheral Flush Adult/Peds IV (05:28)
[2018-08-20] MEDS: Levothyroxine 50 MCG Tablet PO (05:28)
[2018-08-20] MEDS: Methadone 10 MG Tablet PO ×3 (05:29→21:14)
[2018-08-20 07:14] LABS: Hematocrit 39.5 % (37-47); Hemoglobin 12.6 g/dl (12.0-15.0); Mean Corp Hgb Conc 31.9 g/gl (32-36); Mean Corpuscular Hgb 31.8 pg (27.0-32.0); Mean Corpuscular Volume 99.7 fL (81-99); Platelet Count 201 K/mm3 (150-450); RBC Distribution Width CV 14.8 % (11.6-14.6); Red Blood Count 3.96 M/mm3 (4.2-5.4); White Blood Count 6.2 K/mm3 (4.4-11.0)
[2018-08-20 07:24] LABS: Scan Indicated on CBC? Y/N NO
[2018-08-20 07:26] LABS: Anion Gap 8 (5-15); BUN 19 mg/dL (7-18); BUN/Creat Ratio 46.7 RATIO (10-20); Calcium,Total 8.2 mg/dL (8.5-10.1); Chloride 105 mmol/L (98-107); Creatinine, Serum 0.41 mg/dL (0.55-1.02); EST Glomerular Filtration Rate 165 mL/min (>60); Est Glom Filt Rate - Afr Amer 200 mL/min (>60); Estimated Creatinine Clearance 48.45 ml/min; Glucose 140 mg/dL (74-106); Magnesium 2.3 mg/dL (1.6-2.6); Phosphorus 4.1 mg/dL (2.5-4.9); Potassium 4.1 mmol/L (3.5-5.1); Sodium Level 142 mmol/L (136-145)
[2018-08-20 07:41] VITALS: BP 105/67; PULSE 78; RESP 16; TEMP 37.1; O2SAT 99
--- NOTE | 2018-08-20 07:49 | PCM.PROGNOTE ---
Patient Problems: Active and Suspected Problems (Last Updated 07/14/18 @ 18:36 by Judson Hyman MD) Suicide attempt (Acute) Phenytoin toxicity (Acute) Subjective: Day #5 antibiotics for Klebsiella pneumoniae UTI Ms Sandoval is a 67 YOF with a PMH of tobacco dependence, hypertension, hyperlipidemia, glaucoma, seizure disorder, COPD, restless leg syndrome, chronic pain syndrome(managed by Dr. Andujar), spinal stenosis, chronic respiratory failure with hypoxemia on 4 L/min of oxygen at home, narcotic dependence and CHUY (noncompliant with CPAP) who was brought to the ED by EMS with a history of being found with decreased responsiveness and superficial lacerations to her wrists. She reported to the emergency room physician that she wanted to kill herself for several months but finally decided to do it. She was very lethargic upon presentation to the emergency room and confused. Phenytoin level when corrected for hypoalbuminemia was 33. She was admitted to the hospital with phenytoin toxicity and suicide attempt. Dilantin was obviously held. As the Phenytoin level decreased she became alert, oriented and appropriate. She denied any suicidal ideation. She was seen by the crisis counselor who feels she is safe for discharge home or to a snf. She is weak and did poorly with PT/OT. They do not feel that she is safe to go home and we are awaiting pre-cert for transfer to half-way. All events of the past 24 hours been reviewed. Afebrile. Vital signs are stable. She is now 99% saturated on room air this morning. She smokes 2 packs of cigarettes a day at home and is chronically on oxygen 3-4 L/min. Oral intake has started to cotton picker Lab potassium, magnesium and phosphorus are all within normal limits. The BUN is 19 with a creatinine of 0.41. Phenobarbital level was therapeutic. She is sitting up in a chair today in the room. She ambulated 75 feet with physical therapy today using her Rollator. Her only complaint today is stress urinary incontinence every time she coughs. Denies suicidal ideation. She is appropriate, pleasant and conversant. - Physical Exam General: Alert, Oriented x3, Cooperative, No apparent distress, - - benign essential tremor of the head? HEENT: Atraumatic, PERRLA, EOMI Oral: Moist Mucosa, No Gingival or Mucosal Lesions/ Ulcerations, - - Edentulous Neck: Supple, No Nodes, Trachea Midline Lungs: Clear to auscultation, Diminished Cardiovascular: Regular rate, Regular Rhythm, Normal S1, Normal S2, No Gallop Abdomen: Bowel Sounds Present, Soft, Non Tender, Non-Distended Extremities: No clubbing, No cyanosis, No edema Skin: No rashes, No breakdown, - - the self inflicted scratches on the flexor surface of the wrists are healing Neurological: Cranial nerves II-XII grossly intact, Neuro grossly intact, - - tremor of the head only Psych/Mental Status: Normal Affect, Appropriate Vital Signs Temp Pulse Resp BP Pulse Ox 98.7 F 78 16 105/67 99 08/20/18 07:41 08/20/18 07:41 08/20/18 07:41 08/20/18 07:41 08/20/18 07:41 Oxygen Flow Rate (L/min) 1 Oxygen Delivery Method Room Air Weight: 155 lb Body Mass Index (BMI) 25.4 Intake and Output for Last 24 Hours 08/18/18 08/19/18 08/20/18 23:59 23:59 23:59 Intake Total 820 / 820 1310 / 1310 120 / 120 Balance 820 / 820 1310 / 1310 120 / 120 Microbiology Past 72 Hours 08/16/18 14:25 Urine Culture - Final Urine Catheter - Catheter Klebsiella pneumoniae sp pneum 08/15/18 14:25 Urine Culture - Final Urine Catheter - Catheter Klebsiella pneumoniae sp pneum Laboratory Tests Past 24 Hrs 08/20/18 08/20/18 08/20/18 06:34 06:34 06:34 WBC 6.2 RBC 3.96 L Hgb 12.6 Hct 39.5 MCV 99.7 H MCH 31.8 MCHC 31.9 L RDW 14.8 H RDW Differential 53.0 H Plt Count 201 MPV 9.0 Sodium 142 Potassium 4.1 Chloride 105 Carbon Dioxide 29.0 Anion Gap 8 BUN 19 H Creatinine 0.41 L Estim Creat Clear Calc 48.45 Est GFR (MDRD) Af Amer 200 Est GFR (MDRD) Non-Af 165 BUN/Creatinine Ratio 46.7 H Glucose 140 H Calcium 8.2 L Phosphorus 4.1 Magnesium 2.3 Phenobarbital 25.2 Medical Necessity - Tobacco Use Smoking Status: Current every day smoker Tobacco Use: Cigarettes Assessment/Plan All Active Problems (Last Updated 07/14/18 @ 18:36 by Judson Hyman MD) Hypothyroidism (Acute) Urinary tract infection (Acute) Toxic metabolic encephalopathy (Acute) Suicide attempt (Acute) Phenytoin toxicity (Acute) HABP (hospital-acquired bacterial pneumonia) (Ruled-out) Impressions 1. encephalopathy at admission - due to intentional OD of her sedating medications? due to Dilantin toxicity? Suicide attempt? One of the adverse reactions of dilantin toxicity is suicidal ideation....also causes constipation. I suspect that the confusion at admission was due to Dilantin toxicity the dilantin level corrected for hypoalbuminemia was 33 2. Diantin toxicity 3. hx of mental illness - per her son Samson she has had multiple psych admissions in the past 4. seizure disorder on 3 different antiepileptics at admission ( managed by Dr. Veliz)- phenobarb, dilantin and Trileptal. Multiple toxic levels on prior visits with phenytoin. Has not seen a neurologist in many years and in fact the last neurologist she saw a few years ago. Dr. Veliz has been managing her antiepileptic drugs 5. History of spinal stenosis with chronic pain 6. Chronic pain syndrome-follows with Dr. Dr. Andujar 7. Tobacco dependence - 2 PPD 8. Hypertension 9. Hyperlipidemia 10. Glaucoma 11. COPD 12. Restless leg syndrome 13. Chronic respiratory failure with hypoxemia on 4 L/min of nasal O2 at home 14. Obstructive sleep apnea-noncompliant with CPAP.....wears O2 at night 15. Edentulous 16. chronic methadone use 17. Hypothyroidism - low TSH, T3 and T4 - started on Levothyroid 50 mcg 18. Obstipation - having a BM daily now with the current regimen of stool softeners, no longer c/o rectal pain 19. Grade 3 hemorrhoids-has seen Dr. Dunlap in the past 2 recommended MiraLAX and follow-up with him in 6 weeks. She was seen in January of 2018 20. Urinary tract infection secondary to Klebsiella pneumoniae SNF at [place] [facility] is not working so will discontinue Consult Dr. Richardson - back in town tomorrow Start Estrace intravaginal daily for 2 weeks Transfer to SNF when pre-certification comes through Code Visit Inpatient E&M: 98990 [facility] Hosp L1
--- NOTE | 2018-08-20 07:56 | PN_ITS ---
Patient Problems: Active and Suspected Problems (Last Updated 07/14/18 @ 18:36 by Judson Hyman MD) Suicide attempt (Acute) Phenytoin toxicity (Acute) Subjective: Day #5 antibiotics for Klebsiella pneumoniae UTI Ms Sandoval is a 67 YOF with a PMH of tobacco dependence, hypertension, hyperlipidemia, glaucoma, seizure disorder, COPD, restless leg syndrome, chronic pain syndrome(managed by Dr. Andujar), spinal stenosis, chronic respiratory failure with hypoxemia on 4 L/min of oxygen at home, narcotic dependence and CHUY (noncompliant with CPAP) who was brought to the ED by EMS with a history of being found with decreased responsiveness and superficial lacerations to her wrists. She reported to the emergency room physician that she wanted to kill herself for several months but finally decided to do it. She was very lethargic upon presentation to the emergency room and confused. Phenytoin level when corrected for hypoalbuminemia was 33. She was admitted to the hospital with phenytoin toxicity and suicide attempt. Dilantin was obviously held. As the Phenytoin level decreased she became alert, oriented and appropriate. She denied any suicidal ideation. She was seen by the crisis counselor who feels she is safe for discharge home or to a alf. She is weak and did poorly with PT/OT. They do not feel that she is safe to go home and we are awaiting pre- cert for transfer to [facility]. All events of the past 24 hours been reviewed. Afebrile. Vital signs are stable. She is now 99% saturated on room air this morning. She smokes 2 packs of cigarettes a day at home and is chronically on oxygen 3-4 L/min. Oral intake has started to berry picker Lab potassium, magnesium and phosphorus are all within normal limits. The BUN is 19 with a creatinine of 0.41. Phenobarbital level was therapeutic. She is sitting up in a chair today in the room. She ambulated 75 feet with physical therapy today using her Rollator. Her only complaint today is stress urinary incontinence every time she coughs. Denies suicidal ideation. She is appropriate, pleasant and conversant. - Physical Exam General: Alert, Oriented x3, Cooperative, No apparent distress, - - benign essential tremor of the head? HEENT: Atraumatic, PERRLA, EOMI Oral: Moist Mucosa, No Gingival or Mucosal Lesions/ Ulcerations, - - Edentulous Neck: Supple, No Nodes, Trachea Midline Lungs: Clear to auscultation, Diminished Cardiovascular: Regular rate, Regular Rhythm, Normal S1, Normal S2, No Gallop Abdomen: Bowel Sounds Present, Soft, Non Tender, Non-Distended Extremities: No clubbing, No cyanosis, No edema Skin: No rashes, No breakdown, - - the self inflicted scratches on the flexor surface of the wrists are healing Neurological: Cranial nerves II-XII grossly intact, Neuro grossly intact, - - tremor of the head only Psych/Mental Status: Normal Affect, Appropriate Vital Signs Temp Pulse Resp BP Pulse Ox 98.7 F 78 16 105/67 99 08/20/18 07:41 08/20/18 07:41 08/20/18 07:41 08/20/18 07:41 08/20/18 07:41 Oxygen Flow Rate (L/min) 1 Oxygen Delivery Method Room Air Weight: 155 lb Body Mass Index (BMI) 25.4 Intake and Output for Last 24 Hours 08/18/18 08/19/18 08/20/18 23:59 23:59 23:59 Intake Total 820 / 820 1310 / 1310 120 / 120 Balance 820 / 820 1310 / 1310 120 / 120 Microbiology Past 72 Hours 08/16/18 14:25 Urine Culture - Final Urine Catheter - Catheter Klebsiella pneumoniae sp pneum 08/15/18 14:25 Urine Culture - Final Urine Catheter - Catheter Klebsiella pneumoniae sp pneum Laboratory Tests Past 24 Hrs 08/20/18 08/20/18 08/20/18 06:34 06:34 06:34 WBC 6.2 RBC 3.96 L Hgb 12.6 Hct 39.5 MCV 99.7 H MCH 31.8 MCHC 31.9 L RDW 14.8 H RDW Differential 53.0 H Plt Count 201 MPV 9.0 Sodium 142 Potassium 4.1 Chloride 105 Carbon Dioxide 29.0 Anion Gap 8 BUN 19 H Creatinine 0.41 L Estim Creat Clear Calc 48.45 Est GFR (MDRD) Af Amer 200 Est GFR (MDRD) Non-Af 165 BUN/Creatinine Ratio 46.7 H Glucose 140 H Calcium 8.2 L Phosphorus 4.1 Magnesium 2.3 Phenobarbital 25.2 Medical Necessity - Tobacco Use Smoking Status: Current every day smoker Tobacco Use: Cigarettes Assessment/Plan All Active Problems (Last Updated 07/14/18 @ 18:36 by Judson Hyman MD) Hypothyroidism (Acute) Urinary tract infection (Acute) Toxic metabolic encephalopathy (Acute) Suicide attempt (Acute) Phenytoin toxicity (Acute) HABP (hospital-acquired bacterial pneumonia) (Ruled-out) Impressions 1. encephalopathy at admission - due to intentional OD of her sedating medications? due to Dilantin toxicity? Suicide attempt? One of the adverse reactions of dilantin toxicity is suicidal ideation....also causes constipation. I suspect that the confusion at admission was due to Dilantin toxicity the dilantin level corrected for hypoalbuminemia was 33 2. Diantin toxicity 3. hx of mental illness - per her son Samson she has had multiple psych admissions in the past 4. seizure disorder on 3 different antiepileptics at admission ( managed by Dr. Veliz)- phenobarb, dilantin and Trileptal. Multiple toxic levels on prior visits with phenytoin. Has not seen a neurologist in many years and in fact the last neurologist she saw a few years ago. Dr. Veliz has been managing her antiepileptic drugs 5. History of spinal stenosis with chronic pain 6. Chronic pain syndrome-follows with Dr. Dr. Andujar 7. Tobacco dependence - 2 PPD 8. Hypertension 9. Hyperlipidemia 10. Glaucoma 11. COPD 12. Restless leg syndrome 13. Chronic respiratory failure with hypoxemia on 4 L/min of nasal O2 at home 14. Obstructive sleep apnea-noncompliant with CPAP.....wears O2 at night 15. Edentulous 16. chronic methadone use 17. Hypothyroidism - low TSH, T3 and T4 - started on Levothyroid 50 mcg 18. Obstipation - having a BM daily now with the current regimen of stool softeners, no longer c/o rectal pain 19. Grade 3 hemorrhoids-has seen Dr. Dunlap in the past 2 recommended MiraLAX and follow-up with him in 6 weeks. She was seen in January of 2018 20. Urinary tract infection secondary to Klebsiella pneumoniae SNF at [place] [facility] is not working so will discontinue Consult Dr. Richardson - back in town tomorrow Start Estrace intravaginal daily for 2 weeks Transfer to SNF when pre-certification comes through Code Visit Inpatient E&M: 79402 [facility] Hosp L1
[2018-08-20] MEDS: Hydrocortisone 25 MG Suppository RECTAL (08:16)
[2018-08-20] MEDS: Polyethylene Glycol 3350 17 GM PACKET PO (08:17)
[2018-08-20] MEDS: Phenobarbital 32.4 MG Tablet PO ×2 (08:18→21:20)
[2018-08-20] MEDS: Etodolac 200 MG Capsule 400 MG PO ×2 (08:20→18:07)
[2018-08-20] MEDS: OXcarbazepine 150 MG Tablet PO ×2 (08:20→21:14)
[2018-08-20] MEDS: Tolterodine Tartrate 4 MG CAP.SA PO (08:20)
[2018-08-20] MEDS: OXcarbazepine 300 MG Tablet 600 MG PO ×2 (08:21→21:14)
[2018-08-20] MEDS: Aspirin 81 MG TAB.CHEW PO (08:21)
[2018-08-20] MEDS: Cefadroxil 500 MG CAPSULE PO ×2 (08:21→21:14)
[2018-08-20 11:59] VITALS: BP 124/69; PULSE 78; RESP 16; TEMP 36.6; O2SAT 99
[2018-08-20] MEDS: DULoxetine Hcl 20 MG Capsule PO (13:46)
[2018-08-20] MEDS: Estrogens,Conj. 1 Tube 1 DOSE VAGINAL (13:46)
[2018-08-20 14:53] VITALS: BP 101/57; PULSE 81; RESP 16; TEMP 36.6; O2SAT 97
[2018-08-20 19:36] VITALS: PULSE 78; RESP 18; O2SAT 95
[2018-08-20] MEDS: Albuterol 2.5 MG/3 ML VIAL.NEB. INHALATION (19:36)
[2018-08-20] MEDS: Budesonide Respules 0.5 MG/2 ML AMPUL.NEB. INHALATION (19:36)
[2018-08-20 20:32] VITALS: BP 125/90; PULSE 92; RESP 18; TEMP 36.9; O2SAT 98
[2018-08-20] MEDS: Latanoprost 0.005% 1 Bottle 1 DRP EACH EYE (21:14)
[2018-08-20] MEDS: Pramipexole Di-HCl 1 MG Tablet PO (21:14)
[2018-08-20] MEDS: Pravastatin 40 MG Tablet PO (21:14)
[2018-08-20] MEDS: Mirtazapine 15 MG Tablet PO (21:14)
[2018-08-21 03:45] VITALS: BP 124/64; PULSE 77; RESP 16; TEMP 36.8; O2SAT 98
[2018-08-21] MEDS: Levothyroxine 50 MCG Tablet PO (06:15)
[2018-08-21] MEDS: 0.9% NaCl Peripheral Flush Adult/Peds IV (06:15)
[2018-08-21] MEDS: Methadone 10 MG Tablet PO ×2 (06:15→13:39)
[2018-08-21 06:49] VITALS: PULSE 77; RESP 16; O2SAT 97
[2018-08-21] MEDS: Albuterol 2.5 MG/3 ML VIAL.NEB. INHALATION ×2 (06:49→13:04)
[2018-08-21] MEDS: Budesonide Respules 0.5 MG/2 ML AMPUL.NEB. INHALATION (06:49)
--- NOTE | 2018-08-21 07:41 | CASEMGMT ---
Social Work: Updated clinicals faxed to [facility]. PLAN: Patient to be discharged to [facility] pending acceptance and insurance pre-cert. CRISTIANO Luna
--- NOTE | 2018-08-21 07:59 | NURSING ---
Addendum entered by Danya Hardwick 08/21/18 09:24: Dr. Waldrop was notified and spoke with pt-- she states that she doesn't want to make any decisions and wants her son to be contacted. This RN notified of same and spoke with patient- she requested that this RN call her son and allow him to make the decision. This RN called Yaakov per pt request and notified him of situation and of patient refusing to make a decision and requesting that he make it for her. Yaakov states he wants to personally call the home health agency and speak with them prior to deciding. Notified that staff needs decision this morning- given this RN's cell phone number to return call when has the info. he needs. Original Note: Pt. reported to night guard extension service specialist in charge- [place]- that she is refusing to go to any shelter. She became very agitated- and emotional support was provided.
[2018-08-21 08:40] VITALS: BP 126/65; PULSE 81; RESP 16; TEMP 37.1; O2SAT 100
--- NOTE | 2018-08-21 08:40 | NURSING ---
Pt refusing seizure pads-- sitting on table in pt's room. Pt asked and verbalized she does not want them- despite education regarding same.
--- NOTE | 2018-08-21 09:02 | PCM.CONS.GEN ---
Problem List (1) Stress bladder incontinence, female Status: Acute (2) Urge incontinence Status: Acute (3) Urinary tract infection Status: Acute Reason for Consult Date of Consultation: 08/21/18 Reason for Consultation: Urinary incontinence, urinary tract infection History of Present Illness: The patient is a 67 year old F admitted with encephalopathy and suicidal ideation. She has a long-standing history of severe urinary continence. She has been on Detrol LA 4 mg for the past 4-5 years. Currently she voids every 2 hours during the daytime as well as the nighttime. She goes through approximately 3 depends a day due to her incontinence. Her incontinence is a mixed picture with both urge and stress incontinence with the urge portion being more severe than the stress leakage. She also has significant constipation and recurrent urinary tract infections with at least 2 in the last year. Her medications tend to constipate her. Detrol is the only medication she has been treated with. She is not sexually active currently. She reports discomfort related to her infections including both vaginal and lower abdominal cramping. She has had no surgical intervention for her bladder but has had her right ovary and fallopian tube removed secondary to blood clots. She has had a long-standing history of clotting in her lower extremities as well. She is a heavy smoker and currently smokes approximately 2 packs/day. She has never noticed gross hematuria and has never been told she has microhematuria. Plan is for discharge in the near future. Past Medical History Past Medical History (Chronic Problems): Chronic Problems (Last Updated 07/14/18 @ 18:36 by Judson Hyman MD) Grade III hemorrhoids (Chronic) Glaucoma (Chronic) Obstipation (Chronic) Edentulous (Chronic) Chronic hypoxemic respiratory failure (Chronic) Tobacco use (Chronic) Depression (Chronic) Insomnia (Chronic) She takes Temazepam every night for sleep, prescribed by Dr. Veliz Hypertension (Chronic) Physical debility (Chronic) Degenerative disc disease, lumbar (Chronic) Pain, chronic (Chronic) Seizure disorder (Chronic) Restless leg syndrome (Chronic) COPD (chronic obstructive pulmonary disease) (Chronic) 1 ppd now smoker 4 ppd Obstructive sleep apnea (Chronic) non-compliant with CPAP but has oxygen to wear at night Smokes with greater than 40 pack year history (Chronic) Medical History: Medical History (Last Reviewed 08/21/18 @ 09:06 by Dee Richardson MD) Depression (Chronic) F32.9 Insomnia (Chronic) G47.00 She takes Temazepam every night for sleep, prescribed by Dr. Veliz Hypertension (Chronic) I10 Physical debility (Chronic) R53.81 Degenerative disc disease, lumbar (Chronic) M51.36 Pain, chronic (Chronic) G89.29 Seizure disorder (Chronic) G40.909 Restless leg syndrome (Chronic) COPD (chronic obstructive pulmonary disease) (Chronic) J44.9 1 ppd now smoker 4 ppd Obstructive sleep apnea (Chronic) G47.33 non-compliant with CPAP but has oxygen to wear at night Smokes with greater than 40 pack year history (Chronic) F17.210 Allergies Penicillins Allergy (Verified 08/12/18 19:08) Anaphylaxis codeine Adverse Reaction (Verified 08/12/18 19:08) Nausea Home Medications: Ambulatory Orders Medication Instructions Recorded Alendronate Sodium [Fosamax] 70 mg PO FR 05/12/16 Etodolac 400 mg PO BID 05/12/16 Temazepam [Restoril] 30 mg PO QHS 06/24/17 Mirtazapine [Remeron] 15 mg PO QHS PRN 07/03/17 Latanoprost 0.005% [Xalatan 1 drp EACH EYE QHS 07/04/17 Opthalmic] Methadone HCl 10 mg PO TID 09/04/17 Phenobarbital 32.4 mg PO BID 11/07/17 Pravastatin [Pravachol] 40 mg PO QHS 11/07/17 Aspirin [Aspirin, Baby] 81 mg PO DAILY@0800 tab.chew 03/07/18 Sennosides/Docusate Sodium 2 each PO BID 04/03/18 [Senna-Docusate Sodium Tablet] Ranitidine HCl [Zantac] 300 mg PO DAILY 06/13/18 Risperidone 0.25 mg PO DAILY 06/13/18 Ropinirole HCl [Requip] 2 mg PO DAILY 06/13/18 Tolterodine Tartrate [Detrol LA] 4 mg PO DAILY 06/13/18 Albuterol Sulfate [Ventolin Hfa] 1 - 2 puff INHALATION Q6H PRN PRN 07/14/18 Multivitamin with Minerals 1 tab PO DAILY 07/14/18 [Multiple Vitamin] Ergocalciferol [Vitamin D] 50,000 units PO MO 08/15/18 Fluticasone/Vilanterol [Breo 2 puff INHALATION BID 08/15/18 Ellipta 100-25 Mcg INH] Hydrocortisone 1% Crm [Hytone] 1 applicatio TOPICAL 08/15/18 Ipratropium/Albuterol Sulfate 3 ml INHALATION BID 08/15/18 [Duoneb] Metoprolol Tartrate 25 mg PO BID 08/15/18 Nicotine [Nicoderm Cq] 21 mg TOPICAL DAILY 08/15/18 Nystatin 1 applicatio TOPICAL PRN PRN 08/15/18 Potassium Chloride [K-Dur] 10 meq PO DAILY 08/15/18 Cefadroxil 1 gm PO DAILY #7 tablet 08/18/18 Hydrocortisone [Anusol Hc] 25 mg RECTAL BID #14 suppos. 08/18/18 Levothyroxine [Synthroid] 50 mcg PO DAILY@0600 #30 tablet 08/18/18 Nicotine [Nicoderm Cq] 21 mg TRANSDERM. DAILY #28 patch 08/18/18 Oxcarbazepine [Trileptal] 150 mg PO BID #60 tablet 08/18/18 Oxcarbazepine [Trileptal] 600 mg PO BID #60 tablet 08/18/18 Polyethylene Glycol 3350 [Miralax] 17 gm PO BID #1 bottle 08/18/18 Surgical History: Surgical History (Last Updated 08/18/18 @ 13:33 by Susan Lynch DO) History of right hip replacement (Inactive) Z96.641 S/P appendectomy (Inactive) Z90.49 S/P laparoscopic cholecystectomy (Inactive) Z90.49 Surgical History: appendectomy, cholecystectomy, - - Fractured right ankle, carpal tunnel surgery, removal of teeth, right ovariectomy and fallopian tube removal. 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 Lives: Alone Smoking Status: Current every day smoker Tobacco Use: Cigarettes Alcohol: None Drugs: None - *Family History Maternal Family History: Family History (Last Reviewed 06/13/18 @ 22:00 by Yunior Heaton MD) Mother Diabetes Heart disease Hypertension CAD (coronary artery disease) CVA (cerebral vascular accident) History Items: Diabetes Paternal Family History: Family History (Last Reviewed 06/13/18 @ 22:00 by Yunior Heaton MD) Mother Diabetes Heart disease Hypertension CAD (coronary artery disease) CVA (cerebral vascular accident) History Items: Cancer - colon Sibling Family History: Family History (Last Reviewed 06/13/18 @ 22:00 by Yunior Heaton MD) Mother Diabetes Heart disease Hypertension CAD (coronary artery disease) CVA (cerebral vascular accident) History Items: No pertinent history Review of Systems Constitutional: Denies: Chills, Fever Eyes: Denies: Vision Change HEENT: Denies: Difficulty Hearing Cardiovascular: Denies: Chest Pain Respiratory: Reports: Shortness of breath upon exertion Gastrointestinal: Reports: Abdominal Pain, Constipation. Denies: Diarrhea, Nausea Genitourinary: Reports: Dysuria, Frequency, Incontinence, Nocturia, Urgency. Denies: Hematuria, Hesitancy, Retention Skin: Denies: Skin Changes Neurological: Reports: Seizures. Denies: Headaches Psychiatric: Reports: Depression Patient Problems: Active and Suspected Problems (Last Updated 07/14/18 @ 18:36 by Judson Hyman MD) Stress bladder incontinence, female (Acute) Urge incontinence (Acute) Suicide attempt (Acute) Phenytoin toxicity (Acute) - Physical Exam General: Alert, Oriented x3, Cooperative, No apparent distress HEENT: Atraumatic, Normocephalic Oral: Moist Mucosa Neck: Supple Lungs: Normal air movement Cardiovascular: Regular rate Abdomen: Soft, Tender - mildly tender lower abdominal Musculoskeletal: No Muscle Wasting Neurological: Cranial nerves II-XII grossly intact, Neuro grossly intact Psych/Mental Status: Normal Affect Vital Signs Temp Pulse Resp BP Pulse Ox 98.8 F 81 16 126/65 H 100 08/21/18 08:40 08/21/18 08:40 08/21/18 08:40 08/21/18 08:40 08/21/18 08:40 Oxygen Flow Rate (L/min) 1 Oxygen Delivery Method Nasal Cannula Weight: 70.307 kg Body Mass Index (BMI) 25.4 Intake and Output for Last 24 Hours 08/19/18 08/20/18 08/21/18 23:59 23:59 23:59 Intake Total 1310 / 1310 1090 / 1090 120 / 120 Balance 1310 / 1310 1090 / 1090 120 / 120 Microbiology Past 72 Hours 08/16/18 14:25 Urine Culture - Final Urine Catheter - Catheter Klebsiella pneumoniae sp pneum 08/15/18 14:25 Urine Culture - Final Urine Catheter - Catheter Klebsiella pneumoniae sp pneum Assessment/Plan All Active Problems (Last Updated 07/14/18 @ 18:36 by Judson Hyman MD) Stress bladder incontinence, female (Acute) Urge incontinence (Acute) Hypothyroidism (Acute) Urinary tract infection (Acute) Toxic metabolic encephalopathy (Acute) Suicide attempt (Acute) Phenytoin toxicity (Acute) HABP (hospital-acquired bacterial pneumonia) (Ruled-out) Stop Detrol LA. Bladder scan post void residual. Start Myrbetriq 50mg daily. 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 This medication should not interfere with her other medications, and will not increase her constipation. She will need further evaluation in the office with pelvic exam and cystoscopy. Renal u/s for the recurrent UTI's. Maintain aggressive management of her constipation as this will increase her leakage and risk for UTI. I would avoid estrogen cream due to history of DVT and smoking. Complete antibiotics for the klebsiella UTI. I will see her in the office in the next 2-3 weeks for follow up and further evaluation. Thank you for the privilege of this consult.
--- NOTE | 2018-08-21 09:14 | US_ITS ---
STUDY: RENAL ULTRASOUND - COMPLETE REASON FOR EXAM: Female, 67 years old. Abnormal labs. TECHNIQUE: Ultrasound evaluation of the kidneys was performed with real-time and static danielson-scale imaging. COMPARISON: None. FINDINGS: RIGHT KIDNEY: Normal location of the right kidney, which is normal in size. The right kidney measures 9.1 cm in length. There is a normal cortex of the right kidney. There is no right renal mass or cyst. There are no right renal calculi. There is no right hydronephrosis. DISTAL RIGHT URETER: There is no demonstrated right ureteral jet. LEFT KIDNEY: Normal location of the left kidney, which is normal in size. The left kidney measures 10.1 cm in length. There is a normal cortex of the left kidney. There is no left renal mass or cyst. There are no left renal calculi. There is no left hydronephrosis. DISTAL LEFT URETER: There is a visualized left ureteral jet. BLADDER: The distended urinary bladder has a volume of 193.3 ml. There is a normal wall thickness of the distended urinary bladder. There is no demonstrated mass within the urinary bladder. There are no demonstrated bladder calculi. US/Kidney and Bladder IMPRESSION: Within normal limits ultrasound of the kidneys and urinary bladder. Electronically Signed: Elsie Umaña MD at 16:24 EST Tel , Service support ,
--- NOTE | 2018-08-21 09:24 | NURSING ---
pt requesting to take all medications at the same time- communication sent to pharmacy, requesting some of pt's missing meds- awaiting delivery.
--- NOTE | 2018-08-21 10:17 | PCM.DC ---
- Discharge Diagnoses Current Active Problems: Current Active and Chronic Problems (Last Reviewed 08/21/18 @ 09:06 by Dee Richardson MD) Stress bladder incontinence, female (Acute) Urge incontinence (Acute) Suicide attempt (Acute) Phenytoin toxicity (Acute) You will use the following diet at home:: Cardiac Your food should be the consistency of: Regular Your liquids should be the consistency of: Regular/Thin Discharge Activity: Return to Normal Activity, May Not Drive Call your doctor if you observe: Fever of 101 or Higher, Shortness of breath, Dizziness, Fainting spells, Chest pain, - - Call your PCP if severe diarrhea ( > 5 stools a day), painful sores in the mouth, painful swallowing, rash or itching. Taking a probiotic such as Lactobacillus or Kefir can help with loose stools while taking antibiotics. Allergies/Adverse Reactions: Allergies Penicillins Allergy (Verified 08/12/18 19:08) Anaphylaxis codeine Adverse Reaction (Verified 08/12/18 19:08) Nausea Medications to take at Discharge Alendronate Sodium [Fosamax] 70 mg PO FR 05/12/16 Etodolac 400 mg PO BID 05/12/16 Temazepam [Restoril] 30 mg PO QHS 06/24/17 Mirtazapine [Remeron] 15 mg PO QHS PRN 07/03/17 Latanoprost 0.005% [Xalatan Opthalmic] 1 drp EACH EYE QHS 07/04/17 Methadone HCl 10 mg PO TID 09/04/17 Phenobarbital 32.4 mg PO BID 11/07/17 Pravastatin [Pravachol] 40 mg PO QHS 11/07/17 Aspirin [Aspirin, Baby] 81 mg PO DAILY@0800 tab.chew 03/07/18 Sennosides/Docusate Sodium [Senna-Docusate Sodium Tablet] 2 each PO BID 04/03/18 Ranitidine HCl [Zantac] 300 mg PO DAILY 06/13/18 Risperidone 0.25 mg PO DAILY 06/13/18 Ropinirole HCl [Requip] 2 mg PO DAILY 06/13/18 Albuterol Sulfate [Ventolin Hfa] 1 - 2 puff INHALATION Q6H PRN PRN 07/14/18 Multivitamin with Minerals [Multiple Vitamin] 1 tab PO DAILY 07/14/18 Ergocalciferol [Vitamin D] 50,000 units PO MO 08/15/18 Fluticasone/Vilanterol [Breo Ellipta 100-25 Mcg INH] 2 puff INHALATION BID 08/15/18 Hydrocortisone 1% Crm [Hytone] 1 applicatio TOPICAL 08/15/18 Ipratropium/Albuterol Sulfate [Duoneb] 3 ml INHALATION BID 08/15/18 Metoprolol Tartrate 25 mg PO BID 08/15/18 Nicotine [Nicoderm Cq] 21 mg TOPICAL DAILY 08/15/18 Nystatin 1 applicatio TOPICAL PRN PRN 08/15/18 Potassium Chloride [K-Dur] 10 meq PO DAILY 08/15/18 Hydrocortisone [Anusol Hc] 25 mg RECTAL BID #14 suppos. 08/18/18 Levothyroxine [Synthroid] 50 mcg PO DAILY@0600 #30 tablet 08/18/18 Nicotine [Nicoderm Cq] 21 mg TRANSDERM. DAILY #28 patch 08/18/18 Oxcarbazepine [Trileptal] 150 mg PO BID #60 tablet 08/18/18 Oxcarbazepine [Trileptal] 600 mg PO BID #60 tablet 08/18/18 Polyethylene Glycol 3350 [Miralax] 17 gm PO BID #1 bottle 08/18/18 Duloxetine Hcl [Cymbalta] 20 mg PO DAILY #30 capsule 08/21/18 Mirabegron [Myrbetriq] 50 mg PO DAILY #30 tab.er.24h 08/21/18 The following prescriptions were given: Duloxetine Hcl [Cymbalta] 20 mg PO DAILY #30 capsule Levothyroxine [Synthroid] 50 mcg PO DAILY@0600 #30 tablet Mirabegron [Myrbetriq] 50 mg PO DAILY #30 tab.er.24h Nicotine [Nicoderm Cq] 21 mg TRANSDERM. DAILY #28 patch Hydrocortisone [Anusol Hc] 25 mg RECTAL BID #14 suppos. Oxcarbazepine [Trileptal] 150 mg PO BID #60 tablet Oxcarbazepine [Trileptal] 600 mg PO BID #60 tablet Polyethylene Glycol 3350 [Miralax] 17 gm PO BID #1 bottle Primary Care Physician: Patel Veliz Chi, MD [Primary Care Provider] - Please follow up with your Primary Care Physician in: 1 week Test Results: Test results from this visit will be discussed in further detail at your follow-up appointment, if applicable. Please Follow Up With: [facility] When: August 22 at 0800 with Leobardo Waller Please Follow Up With: Tran Sebastian MD When: 1 MONTH Please Follow Up With: Dee Richardson MD When: 2-3 Weeks Proposed Discharge Date: 08/21/18
[2018-08-21 10:19] VITALS: BP 113/65; PULSE 75; RESP 18; TEMP 36.8; O2SAT 100
--- NOTE | 2018-08-21 10:19 | PCM.DC.SUM ---
Discharge Date and Diagnosis Date of Admission: 08/15/18 Date of Discharge: 08/21/18 - \ - Primary Discharge Diagnosis Active and Suspected Problems (Last Reviewed 08/21/18 @ 09:06 by Dee Richardson MD) Stress bladder incontinence, female (Acute) Urge incontinence (Acute) Suicide attempt (Acute) Phenytoin toxicity (Acute) - Secondary Discharge Diagnosis Chronic Problems (Last Reviewed 08/21/18 @ 09:06 by Dee Richardson MD) Grade III hemorrhoids (Chronic) Glaucoma (Chronic) Obstipation (Chronic) Edentulous (Chronic) Chronic hypoxemic respiratory failure (Chronic) Tobacco use (Chronic) Depression (Chronic) Insomnia (Chronic) She takes Temazepam every night for sleep, prescribed by Dr. Veliz Hypertension (Chronic) Physical debility (Chronic) Degenerative disc disease, lumbar (Chronic) Pain, chronic (Chronic) Seizure disorder (Chronic) Restless leg syndrome (Chronic) COPD (chronic obstructive pulmonary disease) (Chronic) 1 ppd now smoker 4 ppd Obstructive sleep apnea (Chronic) non-compliant with CPAP but has oxygen to wear at night Smokes with greater than 40 pack year history (Chronic) Hospital Course and Treatment Imaging Results: 08/21/18 09:14 Kidney and Bladder [US] Urgent CXR: Normal MRI Brains: IMPRESSION: Involutional changes of the brain, as described above. Right mastoid effusion. Consultations 08/15/18 15:55 Consult: Mental Health/Crisis Routine Reason for consult?: suicide attempt Date Notified:: 08/18/18 Time notified:: 07:40 Neurology Urology Operations: None Procedures: None Summary of Care Provided: Per HPI: The patient is a 67 y/o F w/ PMHx: Tobacco use, Hypertension, Hyperlipidemia, Seizure disorder, Chronic COPD, Restless leg syndrome, Chronic pain syndrome on chronic narcotic therapy, CHUY noncompliant with CPAP who presents to the [facility] ED on 08/15/18 w/ history per EMS as patient found decreased responsiveness with superficial lacerations to her wrists with bleeding controlled at that time with presentation to the ED and reported to the ED physician that she wanted to kill herself for months but it finally decided to do it. In the ED upon initial presentation patient was extremely lethargic, confused, unable to give good history and only complaint was intimately saying she was thirsty. ED workup included T 97, heart rate 69, BP 124/58, respiratory rate 16, 96% on 2 L nasal cannula, BC with WBC 6.1, hemoglobin 12.5, platelet 170 without market shift, BMP with BUN/Cr 6/0.44, UDS w/ methadone, barbiturates, phenytoin level mildly elevated 21.9, carbamazepine less than 0.5, positive benzodiazepines, ethyl alcohol less than 3. Patient aggressively hydrated in the ED and transition to the ICU given concern for suicidal ideations with plan to crisis evaluation once more alert and repeat between level obtained within normal range; however, upon transition to the ICU patient more alert, oriented and initially denying suicidal ideations and stating that this was made up however a pink slip was performed and patient amenable to remaining. Patient declined further evaluation including labs, CT head, VS once alert and oriented, which had been ordered given her notable findings upon presentation. Hospital Course: 1. Metabolic versus toxic encephalopathy 4/Dilantin toxicity/seizure disorder/depression and suicidal [id number] female who presented to the hospital with decreased responsiveness and Dilantin toxicity. As her Dilantin level improved so did her encephalopathy. She did have suicidal ideation and appears to have possibly made a suicide attempt with superficial wrist lacerations. Crisis was consulted who did not think she needed inpatient psych, and she was continued on antidepressants as well as antiseizure medications. Today in my discussion with her she refused to go to a shelter facility and demanded to go home with home health. I discussed the case with the son who is the power of neuropsychiatrist who felt that that since that with his mom wants as what he was going to do. So she was discharged home today and will need outpatient follow-up with her primary care doctor. We will continue with risperidone and started Cymbalta. 2. Chronic respiratory failure with hypoxemia-she is on a baseline of 4 L nasal cannula at home and she was continued on this on discharged and while in the hospital. 3. Hypothyroidism-she is found to have a low TSH as well as a T3-T4 and was therefore started on Synthroid 50 mcg daily. She will need to have outpatient follow-up with repeat thyroid levels in about 6 weeks. 4. UTI-she was found to have a Klebsiella pneumonia pansensitive urinary tract infection she received 3 days of inpatient antibiotics and therefore is not discharged on any further antibiotics. If she does have urinary symptoms as an outpatient would recommend retreatment. 5. Urinary incontinence-urology was consult did to evaluate her urinary incontinence. She stopped her Detrol LA and started Ms. Sandoval on Myrbetriq. Also did not recommend estrogen cream given her history of smoking and DVTs. Renal ultrasound was normal and she was discharged on medications to help treat her constipation in the hopes that this would decrease any urinary leakage. She was also started on Cymbalta as there was some literature to show that this could help. Follow-up with urology in 2-3 weeks as an outpatient. 6. Her other medical diagnoses were evaluated and her home medications were continued were appropriate - Physical Exam General: Alert, Oriented x3, Cooperative, No apparent distress HEENT: Atraumatic, PERRLA, EOMI, Normocephalic Oral: Moist Mucosa Neck: Supple, No JVD, Trachea Midline Lungs: Clear to auscultation, Normal air movement, No rhonchi, No wheeze, Diminished Cardiovascular: Regular rate, Regular Rhythm, Normal S1, Normal S2, No murmurs Abdomen: Soft, Non Tender, Non-Distended, No Hepato-splenomegaly Extremities: No edema, Capillary Refill Less than 3 Seconds Skin: No rashes, No breakdown Neurological: Neuro grossly intact, Sensory exam intact to light touch and pain Vital Signs Temp Pulse Resp BP Pulse Ox 98.8 F 81 16 126/65 H 100 08/21/18 08:40 08/21/18 08:40 08/21/18 08:40 08/21/18 08:40 08/21/18 08:40 Oxygen Flow Rate (L/min) 1 Oxygen Delivery Method Nasal Cannula Weight: 155 lb Body Mass Index (BMI) 25.4 Intake and Output for Last 24 Hours 08/19/18 08/20/18 08/21/18 23:59 23:59 23:59 Intake Total 1310 / 1310 1090 / 1090 120 / 120 Balance 1310 / 1310 1090 / 1090 120 / 120 Microbiology Past 72 Hours 08/16/18 14:25 Urine Culture - Final Urine Catheter - Catheter Klebsiella pneumoniae sp pneum 08/15/18 14:25 Urine Culture - Final Urine Catheter - Catheter Klebsiella pneumoniae sp pneum Discharge Activity: Return to Normal Activity, May Not Drive Call your doctor if you observe: Fever of 101 or Higher, Shortness of breath, Dizziness, Fainting spells, Chest pain, - - Call your PCP if severe diarrhea ( > 5 stools a day), painful sores in the mouth, painful swallowing, rash or itching. Taking a probiotic such as Lactobacillus or Kefir can help with loose stools while taking antibiotics. Home Medications: Medications to take at Discharge RX: Alendronate Sodium [Fosamax] 70 mg PO FR 05/12/16 RX: Etodolac 400 mg PO BID 05/12/16 RX: Temazepam [Restoril] 30 mg PO QHS 06/24/17 RX: Mirtazapine [Remeron] 15 mg PO QHS PRN 07/03/17 RX: Latanoprost 0.005% [Xalatan Opthalmic] 1 drp EACH EYE QHS 07/04/17 RX: Methadone HCl 10 mg PO TID 09/04/17 RX: Phenobarbital 32.4 mg PO BID 11/07/17 RX: Pravastatin [Pravachol] 40 mg PO QHS 11/07/17 RX: Aspirin [Aspirin, Baby] 81 mg PO DAILY@0800 tab.chew 03/07/18 RX: Sennosides/Docusate Sodium [Senna-Docusate Sodium Tablet] 2 each PO BID 04/03/18 RX: Ranitidine HCl [Zantac] 300 mg PO DAILY 06/13/18 RX: Risperidone 0.25 mg PO DAILY 06/13/18 RX: Ropinirole HCl [Requip] 2 mg PO DAILY 06/13/18 RX: Albuterol Sulfate [Ventolin Hfa] 1 - 2 puff INHALATION Q6H PRN PRN 07/14/18 RX: Multivitamin with Minerals [Multiple Vitamin] 1 tab PO DAILY 07/14/18 RX: Ergocalciferol [Vitamin D] 50,000 units PO MO 08/15/18 RX: Fluticasone/Vilanterol [Breo Ellipta 100-25 Mcg INH] 2 puff INHALATION BID 08/15/18 RX: Hydrocortisone 1% Crm [Hytone] 1 applicatio TOPICAL 08/15/18 RX: Ipratropium/Albuterol Sulfate [Duoneb] 3 ml INHALATION BID 08/15/18 RX: Metoprolol Tartrate 25 mg PO BID 08/15/18 RX: Nicotine [Nicoderm Cq] 21 mg TOPICAL DAILY 08/15/18 RX: Nystatin 1 applicatio TOPICAL PRN PRN 08/15/18 RX: Potassium Chloride [K-Dur] 10 meq PO DAILY 08/15/18 Polyethylene Glycol 3350 [Miralax] 17 gm PO BID #1 bottle 08/18/18 RX: Hydrocortisone [Anusol Hc] 25 mg RECTAL BID #14 suppos. 08/18/18 RX: Levothyroxine [Synthroid] 50 mcg PO DAILY@0600 #30 tablet 08/18/18 RX: Nicotine [Nicoderm Cq] 21 mg TRANSDERM. DAILY #28 patch 08/18/18 RX: Oxcarbazepine [Trileptal] 150 mg PO BID #60 tablet 08/18/18 RX: Oxcarbazepine [Trileptal] 600 mg PO BID #60 tablet 08/18/18 RX: Duloxetine Hcl [Cymbalta] 20 mg PO DAILY #30 capsule 08/21/18 RX: Mirabegron [Myrbetriq] 50 mg PO DAILY #30 tab.er.24h 08/21/18 Following Prescrptions Were Given to Patient: RX: Duloxetine Hcl [Cymbalta] 20 mg PO DAILY #30 capsule RX: Levothyroxine [Synthroid] 50 mcg PO DAILY@0600 #30 tablet RX: Mirabegron [Myrbetriq] 50 mg PO DAILY #30 tab.er.24h RX: Nicotine [Nicoderm Cq] 21 mg TRANSDERM. DAILY #28 patch RX: Hydrocortisone [Anusol Hc] 25 mg RECTAL BID #14 suppos. RX: Oxcarbazepine [Trileptal] 150 mg PO BID #60 tablet RX: Oxcarbazepine [Trileptal] 600 mg PO BID #60 tablet Polyethylene Glycol 3350 [Miralax] 17 gm PO BID #1 bottle Primary Care Physician: Patel Veliz Chi, MD [Primary Care Provider] - Please follow up with your Primary Care Physician in: 1 week Please Follow Up With: counselling center When: August 22 at 0800 with Leobardo Waller Please Follow Up With: Tran Sebastian MD When: 1 MONTH Please Follow Up With: Dee Richardson MD When: 2-3 Weeks Disposition: Home with Home Health Minutes spent on discharge:: 35 Patient Condition:: Stable Medical Necessity - Tobacco Use Smoking Status: Current every day smoker Tobacco Use: Cigarettes Meaningful Use Info Meaningful Use Diagnoses (Choose all that apply): None applicable Code Visit Inpatient E&M: 66524 Disch Hosp
--- NOTE | 2018-08-21 10:24 | DS.PCM_ITS ---
Discharge Date and Diagnosis Date of Admission: 08/15/18 Date of Discharge: 08/21/18 - \ - Primary Discharge Diagnosis Active and Suspected Problems (Last Reviewed 08/21/18 @ 09:06 by Dee Richardson MD) Stress bladder incontinence, female (Acute) Urge incontinence (Acute) Suicide attempt (Acute) Phenytoin toxicity (Acute) - Secondary Discharge Diagnosis Chronic Problems (Last Reviewed 08/21/18 @ 09:06 by Dee Richardson MD) Grade III hemorrhoids (Chronic) Glaucoma (Chronic) Obstipation (Chronic) Edentulous (Chronic) Chronic hypoxemic respiratory failure (Chronic) Tobacco use (Chronic) Depression (Chronic) Insomnia (Chronic) She takes Temazepam every night for sleep, prescribed by Dr. Veliz Hypertension (Chronic) Physical debility (Chronic) Degenerative disc disease, lumbar (Chronic) Pain, chronic (Chronic) Seizure disorder (Chronic) Restless leg syndrome (Chronic) COPD (chronic obstructive pulmonary disease) (Chronic) 1 ppd now smoker 4 ppd Obstructive sleep apnea (Chronic) non-compliant with CPAP but has oxygen to wear at night Smokes with greater than 40 pack year history (Chronic) Hospital Course and Treatment Imaging Results: 08/21/18 09:14 Kidney and Bladder [US] Urgent CXR: Normal MRI Brains: IMPRESSION: Involutional changes of the brain, as described above. Right mastoid effusion. Consultations 08/15/18 15:55 Consult: Mental Health/Crisis Routine Reason for consult?: suicide attempt Date Notified:: 08/18/18 Time notified:: 07:40 Neurology Urology Operations: None Procedures: None Summary of Care Provided: Per HPI: The patient is a 67 y/o F w/ PMHx: Tobacco use, Hypertension, Hyperlipidemia, Seizure disorder, Chronic COPD, Restless leg syndrome, Chronic pain syndrome on chronic narcotic therapy, CHUY noncompliant with CPAP who presents to the [facility] ED on 08/15/18 w/ history per EMS as patient found decreased responsiveness with superficial lacerations to her wrists with bleeding controlled at that time with presentation to the ED and reported to the ED phys deanna that she wanted to kill herself for months but it finally decided to do it. In the ED upon initial presentation patient was extremely lethargic, confused, unable to give good history and only complaint was intimately saying she was thirsty. ED workup included T 97, heart rate 69, BP 124/58, respiratory rate 16, 96% on 2 L nasal cannula, BC with WBC 6.1, hemoglobin 12.5, platelet 170 without market shift, BMP with BUN/Cr 6/0.44, UDS w/ methadone, barbiturates, phenytoin level mildly elevated 21.9, carbamazepine less than 0.5, positive benzodiazepines, ethyl alcohol less than 3. Patient aggressively hydrated in the ED and transition to the ICU given concern for suicidal ideations with plan to crisis evaluation once more alert and repeat between level obtained within normal range; however, upon transition to the ICU patient more alert, oriented and initially denying suicidal ideations and stating that this was made up however a pink slip was performed and patient amenable to nehemiah ining. Patient declined further evaluation including labs, CT head, VS once alert and oriented, which had been ordered given her notable findings upon presentation. Hospital Course: 1. Metabolic versus toxic encephalopathy 4/Dilantin toxicity/seizure disorder/depression and suicidal [id number]-old female who presented to the hospital with decreased responsiveness and Dilantin toxicity. As her Dilantin level improved so did her encephalopathy. She did have suicidal ideation and appears to have possibly made a suicide attempt with superficial wrist lacerations. Crisis was consulted who did not think she needed inpatient psych, and she was continued on antidepressants as well as antiseizure medications. Today in my discussion with her she refused to go to a [facility] facility and demanded to go home with home health. I discussed the case with the son who is the power of employment attorney who felt that that since that with his mom wants as what he was going to do. So she was discharged home today and will need outpatient follow-up with her primary care doctor. We will continue with risperidone and started Cymbalta. 2. Chronic respiratory failure with hypoxemia-she is on a baseline of 4 L nasal cannula at home and she was continued on this on discharged and while in the hospital. 3. Hypothyroidism-she is found to have a low TSH as well as a T3-T4 and was therefore started on Synthroid 50 mcg daily. She will need to have outpatient follow-up with repeat thyroid levels in about 6 weeks. 4. UTI-she was found to have a Klebsiella pneumonia pansensitive urinary tract infection she received 3 days of inpatient antibiotics and therefore is not discharged on any further antibiotics. If she does have urinary symptoms as an outpatient would recommend retreatment. 5. Urinary incontinence-urology was consult did to evaluate her urinary incontinence. She stopped her Detrol LA and started Ms. Sandoval on Myrbetriq. Also did not recommend estrogen cream given her history of smoking and DVTs. Renal ultrasound was normal and she was discharged on medications to help treat her constipation in the hopes that this would decrease any urinary leakage. She was also started on Cymbalta as there was some literature to show that this could help. Follow-up with urology in 2-3 weeks as an outpatient. 6. Her other medical diagnoses were evaluated and her home medications were continued were appropriate - Physical Exam General: Alert, Oriented x3, Cooperative, No apparent distress HEENT: Atraumatic, PERRLA, EOMI, Normocephalic Oral: Moist Mucosa Neck: Supple, No JVD, Trachea Midline Lungs: Clear to auscultation, Normal air movement, No rhonchi, No wheeze, Diminished Cardiovascular: Regular rate, Regular Rhythm, Normal S1, Normal S2, No murmurs Abdomen: Soft, Non Tender, Non-Distended, No Hepato-splenomegaly Extremities: No edema, Capillary Refill Less than 3 Seconds Skin: No rashes, No breakdown Neurological: Neuro grossly intact, Sensory exam intact to light touch and pain Vital Signs Temp Pulse Resp BP Pulse Ox 98.8 F 81 16 126/65 H 100 08/21/18 08:40 08/21/18 08:40 08/21/18 08:40 08/21/18 08:40 08/21/18 08:40 Oxygen Flow Rate (L/min) 1 Oxygen Delivery Method Nasal Cannula Weight: 155 lb Body Mass Index (BMI) 25.4 Intake and Output for Last 24 Hours 08/19/18 08/20/18 08/21/18 23:59 23:59 23:59 Intake Total 1310 / 1310 1090 / 1090 120 / 120 Balance 1310 / 1310 1090 / 1090 120 / 120 Microbiology Past 72 Hours 08/16/18 14:25 Urine Culture - Final Urine Catheter - Catheter Klebsiella pneumoniae sp pneum 08/15/18 14:25 Urine Culture - Final Urine Catheter - Catheter Klebsiella pneumoniae sp pneum Discharge Activity: Return to Normal Activity, May Not Drive Call your doctor if you observe: Fever of 101 or Higher, Shortness of breath, Dizziness, Fainting spells, Chest pain, - - Call your PCP if severe diarrhea ( > 5 stools a day), painful sores in the mouth, painful swallowing, rash or itching. Taking a probiotic such as Lactobacillus or Kefir can help with loose stools while taking antibiotics. Home Medications: Medications to take at Discharge RX: Alendronate Sodium [Fosamax] 70 mg PO FR 05/12/16 RX: Etodolac 400 mg PO BID 05/12/16 RX: Temazepam [Restoril] 30 mg PO QHS 06/24/17 RX: Mirtazapine [Remeron] 15 mg PO QHS PRN 07/03/17 RX: Latanoprost 0.005% [Xalatan Opthalmic] 1 drp EACH EYE QHS 07/04/17 RX: Methadone HCl 10 mg PO TID 09/04/17 RX: Phenobarbital 32.4 mg PO BID 11/07/17 RX: Pravastatin [Pravachol] 40 mg PO QHS 11/07/17 RX: Aspirin [Aspirin, Baby] 81 mg PO DAILY@0800 tab.chew 03/07/18 RX: Sennosides/Docusate Sodium [Senna-Docusate Sodium Tablet] 2 each PO BID 04/03/18 RX: Ranitidine HCl [Zantac] 300 mg PO DAILY 06/13/18 RX: Risperidone 0.25 mg PO DAILY 06/13/18 RX: Ropinirole HCl [Requip] 2 mg PO DAILY 06/13/18 RX: Albuterol Sulfate [Ventolin Hfa] 1 - 2 puff INHALATION Q6H PRN PRN 07/14/18 RX: Multivitamin with Minerals [Multiple Vitamin] 1 tab PO DAILY 07/14/18 RX: Ergocalciferol [Vitamin D] 50,000 units PO MO 08/15/18 RX: Fluticasone/Vilanterol [Breo Ellipta 100-25 Mcg INH] 2 puff INHALATION BID 08/15/18 RX: Hydrocortisone 1% Crm [Hytone] 1 applicatio TOPICAL 08/15/18 RX: Ipratropium/Albuterol Sulfate [Duoneb] 3 ml INHALATION BID 08/15/18 RX: Metoprolol Tartrate 25 mg PO BID 08/15/18 RX: Nicotine [Nicoderm Cq] 21 mg TOPICAL DAILY 08/15/18 RX: Nystatin 1 applicatio TOPICAL PRN PRN 08/15/18 RX: Potassium Chloride [K-Dur] 10 meq PO DAILY 08/15/18 Polyethylene Glycol 3350 [Miralax] 17 gm PO BID #1 bottle 08/18/18 RX: Hydrocortisone [Anusol Hc] 25 mg RECTAL BID #14 suppos. 08/18/18 RX: Levothyroxine [Synthroid] 50 mcg PO DAILY@0600 #30 tablet 08/18/18 RX: Nicotine [Nicoderm Cq] 21 mg TRANSDERM. DAILY #28 patch 08/18/18 RX: Oxcarbazepine [Trileptal] 150 mg PO BID #60 tablet 08/18/18 RX: Oxcarbazepine [Trileptal] 600 mg PO BID #60 tablet 08/18/18 RX: Duloxetine Hcl [Cymbalta] 20 mg PO DAILY #30 capsule 08/21/18 RX: Mirabegron [Myrbetriq] 50 mg PO DAILY #30 tab.er.24h 08/21/18 Following Prescrptions Were Given to Patient: RX: Duloxetine Hcl [Cymbalta] 20 mg PO DAILY #30 capsule RX: Levothyroxine [Synthroid] 50 mcg PO DAILY@0600 #30 tablet RX: Mirabegron [Myrbetriq] 50 mg PO DAILY #30 tab.er.24h RX: Nicotine [Nicoderm Cq] 21 mg TRANSDERM. DAILY #28 patch RX: Hydrocortisone [Anusol Hc] 25 mg RECTAL BID #14 suppos. RX: Oxcarbazepine [Trileptal] 150 mg PO BID #60 tablet RX: Oxcarbazepine [Trileptal] 600 mg PO BID #60 tablet Polyethylene Glycol 3350 [Miralax] 17 gm PO BID #1 bottle Primary Care Physician: Patel Veliz Chi, MD [Primary Care Provider] - Please follow up with your Primary Care Physician in: 1 week Please Follow Up With: [facility] When: August 22 at 0800 with Leobardo Waller Please Follow Up With: Tran Sebastian MD When: 1 MONTH Please Follow Up With: Dee Richardson MD When: 2-3 Weeks Disposition: Home with Home Health Minutes spent on discharge:: 35 Patient Condition:: Stable Medical Necessity - Tobacco Use Smoking Status: Current every day smoker Tobacco Use: Cigarettes Meaningful Use Info Meaningful Use Diagnoses (Choose all that apply): None applicable Code Visit Inpatient E&M: 28980 Disch Hosp
[2018-08-21] MEDS: Etodolac 200 MG Capsule 400 MG PO (10:48)
[2018-08-21] MEDS: Cefadroxil 500 MG CAPSULE PO (10:48)
[2018-08-21] MEDS: RisperiDONE 0.25 MG Tablet PO (10:49)
[2018-08-21] MEDS: Polyethylene Glycol 3350 17 GM PACKET PO (10:49)
[2018-08-21] MEDS: Aspirin 81 MG TAB.CHEW PO (10:49)
[2018-08-21] MEDS: DULoxetine Hcl 20 MG Capsule PO (10:49)
[2018-08-21] MEDS: OXcarbazepine 150 MG Tablet PO (10:50)
[2018-08-21] MEDS: OXcarbazepine 300 MG Tablet 600 MG PO (10:50)
[2018-08-21] MEDS: Mirabegron 50 MG TAB.ER.24H PO (10:54)
[2018-08-21] MEDS: Phenobarbital 32.4 MG Tablet PO (11:01)
[2018-08-21 13:04] VITALS: PULSE 82; RESP 16
== END 2018-08-21 14:50 | disposition home or self-care (01) | DRG 92 ==
LOC: ED 15:21 → ICU 15:57 → MS2 08-17 09:37
PROVIDERS: Internal Medicine; Physician Assistant; Psychiatry & Neurology Neurology; Admitting Provider Family Medicine; Emergency Provider Emergency Medicine; Family Provider Family Medicine Geriatric Medicine; PCP Family Medicine Geriatric Medicine; Visit Provider Family Medicine
DX: G92 Toxic encephalopathy (principal); J96.11 Chronic respiratory failure with hypoxia; N39.0 Urinary tract infection, site not specified; T14.91XA Suicide attempt, initial encounter; G40.909 Epilepsy, unspecified, not intractable, without status epilepticus; E78.5 Hyperlipidemia, unspecified; G25.81 Restless legs syndrome; G47.33 Obstructive sleep apnea (adult) (pediatric); Z99.81 Dependence on supplemental oxygen; G89.4 Chronic pain syndrome; J44.9 Chronic obstructive pulmonary disease, unspecified; T42.0X5A Adverse effect of hydantoin derivatives, initial encounter; Z23 Encounter for immunization; I10 Essential (primary) hypertension; H40.9 Unspecified glaucoma; K64.2 Third degree hemorrhoids; K59.00 Constipation, unspecified; E03.9 Hypothyroidism, unspecified; B96.1 Klebsiella pneumoniae [K. pneumoniae] as the cause of diseases classified elsewhere; F17.210 Nicotine dependence, cigarettes, uncomplicated; M48.00 Spinal stenosis, site unspecified; N39.46 Mixed incontinence; S61.512A Laceration without foreign body of left wrist, initial encounter; S61.511A Laceration without foreign body of right wrist, initial encounter; Z79.899 Other long term (current) drug therapy; Z79.891 Long term (current) use of opiate analgesic; Z91.19 Patient's noncompliance with other medical treatment and regimen; X78.9XXA Intentional self-harm by unspecified sharp object, initial encounter; F32.9 Major depressive disorder, single episode, unspecified; R10.9 Unspecified abdominal pain
CPT/HCPCS: 36415; 51702; 70551; 71045; 74176; 76770; 80048; 80053; 80156; 80184; 80185; 80307; 80320; 81001; 82040; 82140; 83735; 84100; 84439; 84443; 84481; 85025; 85027; 87077; 87086; 87088; 87186; 90715; 94640; 97110; 97162; 97165; 97530; 99285; J7040; A4216; G0480

== ENCOUNTER → 2018-08-24 13:44 | Outpatient (CLI) | payer MEDICARE, SELFPAY ==
[2018-08-15 16:40] VITALS: BMI 25.4
[2018-08-24 16:53] LABS: Absolute Lymphocyte Count 2.35 X10^3/ul (0.83-4.51); Absolute Neutrophil Count 4.2 X10^3/uL (2.0-7.7); Basophil# 0.05 X10^3/uL; Basophil% 0.6 % (0-1); Eosinophil# 0.38 X10^3/uL; Eosinophils% 4.9 % (0-5); Hematocrit 46.4 % (37-47); Hemoglobin 14.6 g/dl (12.0-15.0); Lymphocyte # 2.35 X10^3/ul (4.0); Lymphocyte % 30.1 % (19-41); Mean Corp Hgb Conc 31.5 g/gl (32-36); Mean Corpuscular Hgb 30.5 pg (27.0-32.0); Mean Corpuscular Volume 97.1 fL (81-99); Mean Platelet Vol. 10.5 fl (6.2-12.0); Monocyte# 0.84 X10^3/uL; Monocyte% 10.8 % (0-10); Neutrophil # 4.15 X10^3/uL (2.7-7.7); Neutrophil % 53.2 % (47-70); Platelet Count 298 K/mm3 (150-450); RBC Distribution Width CV 14.4 % (11.6-14.6); RBC Distribution Width SD 50.2 fl (35.1-43.9); Red Blood Count 4.78 M/mm3 (4.2-5.4); White Blood Count 7.8 K/mm3 (4.4-11.0)
[2018-08-24 17:20] LABS: ALB/GLOB Ratio 0.8 RATIO (0.9-2.4); AST(SGOT) 36 U/L (15-37); Alanine Aminotransfer ALT/SGPT 52 U/L (13-56); Albumin, Serum 3.5 g/dL (3.2-5.0); Alkaline Phosphatase 77 U/L (45-117); Anion Gap 7 (5-15); BUN 15 mg/dL (7-18); BUN/Creat Ratio 27.3 RATIO (10-20); Calcium,Total 8.6 mg/dL (8.5-10.1); Chloride 108 mmol/L (98-107); Creatinine, Serum 0.55 mg/dL (0.55-1.02); EST Glomerular Filtration Rate 117 mL/min (>60); Est Glom Filt Rate - Afr Amer 141 mL/min (>60); Globulin 4.2 g/dL (2.2-4.2); Glucose 107 mg/dL (74-106); Potassium 3.9 mmol/L (3.5-5.1); Protein, Total 7.7 g/dL (6.4-8.2); Sodium Level 141 mmol/L (136-145); Thyroid Stim Hormone (TSH) 0.81 uIU/mL (0.358-3.74)
[2018-08-24 18:02] LABS: POSITIVE COUNT NO; POSITIVE DIFFERENTIAL NO; POSITIVE MORPHOLOGY NO
== END ==
PROVIDERS: Family Provider Family Medicine Geriatric Medicine; PCP Family Medicine Geriatric Medicine; Visit Provider Family Medicine Geriatric Medicine
DX: E55.9 Vitamin D deficiency, unspecified (principal); I10 Essential (primary) hypertension
CPT/HCPCS: 36415; 80053; 82306; 84443; 85025

== ENCOUNTER 2018-11-07 15:07 | Observation (INO) | payer MEDICARE, SELFPAY ==
[2018-08-15 16:40] VITALS: BMI 25.4
[2018-11-07] VITALS (14 sets, daily range): BP systolic 113–141; BP diastolic 65–98; PULSE 93–106; RESP 17–23; TEMP 37.4–39.3; O2SAT 94–99; BMI 25.4; BMI 25.5; BMI 25.7
--- NOTE | 2018-11-07 15:33 | RAD_ITS ---
STUDY: X-RAY CHEST REASON FOR EXAM: Female, 68 years old. Nausea and vomiting for 2 days. TECHNIQUE: Single frontal view of the chest. COMPARISON: August 16, 2018 FINDINGS: There is stable hyperexpansion with a diffuse interstitial pattern. There is no demonstrated pleural abnormality. There is stable moderate cardiomegaly. Normal mediastinum and denae. Normal visualized pulmonary arteries. There is atherosclerotic calcification of the aortic arch with tortuosity. Normal visualized thoracic spine. Normal visualized ribs, clavicles, and shoulders. There is no demonstrated abnormality of the visualized soft tissue structures of the upper abdomen. RAD/Chest 1 View (Portable) IMPRESSION: Stable borderline cardiomegaly with hyperexpansion. No acute finding. Electronically Signed: Maximino Whitney MD at 15:58 EDT , Service support ,
--- NOTE | 2018-11-07 15:34 | ED.RN ---
PT WAS ASKED IF SHE WANTED ANY FAMILY NOTIFIED SHE WAS HERE SHE STATED NO. PT WISHED FOLLOWED. NO FAMILY CONTACTED. Darrell GAUTHIER, RN [id number]
[2018-11-07] MEDS: 0.9% Normal Saline 1,000 ML 1000 ML IV (15:38)
[2018-11-07] MEDS: Ondansetron 4 MG/2 ML Vial IV (15:38)
--- NOTE | 2018-11-07 15:49 | ED.DCSUM_ITS ---
- ER Visit Summary Date of Service: 11/07/18 Chief Complaint: Fever with nausea, vomiting and diarrhea History of Present Illness: The patient is a 68 F unsure of past medical history patient is a very limited informant. She is brought in by squad for fever with nausea, vomiting and diarrhea. Denies any abdominal pain. Denies any dysuria. Currently there is no one accompanying the patient. Physical Examination: Older female with a fever of 102.9. Initial blood pressure 130/98. She does not look septic. Mildly dehydrated. HEENT exam mild dry mixed memories. No signs of trauma. No facial droop. Neck nontender. Lungs clear to auscultation bilaterally. Heart tachycardic rate 101 no murmur. Chest nontender. Abdomen soft nontender. Normal bowel sounds no peritoneal signs. Nondistended no signs of obstruction. Right upper right lower quadrant unremarkable. Prior cholecystectomy scar. Patient is moving all 4 extremities. Neurologically awake alert moving all 4 extremities. Test Results: Chest x-ray 1 view no acute abnormality read both by myself and radiologist no infiltrate. EKG sinus tachycardia rate of 109. No ischemia. White count 11.7. Hemoglobin 15. No bands. Electrolytes unremarkable potassium 3.0. Normal creatinine and gap. Normal liver and lipase. Normal UA. Lactic acid slightly elevated 2.6. Emergency Department Course and Treatment: Treated with IV fluids, IV Zofran and Tylenol with her nausea improved and fever. Patient just looks like she does not feel well after Tylenol and IV fluids I did a repeat temperature she was still 101.6 orally. Given her age and her elevated lactic acid I do think she would warrant overnight admission continued IV fluids and awaiting blood culture results and further evaluation. Treatment Plan: I spoke to the patient a family member in the hospitalist and she will be admitted. Disposition: Admission Impression: Acute nausea, vomiting and diarrhea secondary to gastroenteritis Fever This note was generated with [employer] dictation software. It may contain incorrect words, spelling, and punctuation that were not noted in review of the chart prior to signing ED Disposition - Plan for ED Patient: Referrals: Patel Veliz Chi, MD [Primary Care Provider] -
[2018-11-07] MEDS: Acetaminophen 500 MG Tablet 1000 MG PO (16:15)
[2018-11-07 16:22] LABS: Absolute Lymphocyte Count 1.44 X10^3/ul (0.83-4.51); Absolute Neutrophil Count 9.4 X10^3/uL (2.0-7.7); Basophil# 0.01 X10^3/uL; Basophil% 0.1 % (0-1); Hematocrit 44.8 % (37-47); Lymphocyte # 1.44 X10^3/ul (4.0); Lymphocyte % 12.3 % (19-41); Mean Corp Hgb Conc 33.5 g/gl (32-36); Mean Corpuscular Hgb 30.9 pg (27.0-32.0); Mean Corpuscular Volume 92.2 fL (81-99); Mean Platelet Vol. 9.4 fl (6.2-12.0); Monocyte# 0.79 X10^3/uL; Monocyte% 6.8 % (0-10); Neutrophil # 9.42 X10^3/uL (2.7-7.7); Neutrophil % 80.5 % (47-70); Platelet Count 290 K/mm3 (150-450); RBC Distribution Width CV 13.7 % (11.6-14.6); RBC Distribution Width SD 46.2 fl (35.1-43.9); Red Blood Count 4.86 M/mm3 (4.2-5.4); White Blood Count 11.7 K/mm3 (4.4-11.0)
[2018-11-07 16:23] LABS: POSITIVE COUNT NO; POSITIVE DIFFERENTIAL NO; POSITIVE MORPHOLOGY NO
[2018-11-07 16:54] LABS: AST(SGOT) 32 U/L (15-37); Alanine Aminotransfer ALT/SGPT 22 U/L (13-56); Albumin, Serum 3.7 g/dL (3.2-5.0); Alkaline Phosphatase 72 U/L (45-117); Anion Gap 10 (5-15); BUN 12 mg/dL (7-18); BUN/Creat Ratio 15.9 RATIO (10-20); Bilirubin, Direct 0.15 mg/dL (0.00-0.30); Calcium,Total 8.8 mg/dL (8.5-10.1); Chloride 100 mmol/L (98-107); Creatinine, Serum 0.75 mg/dL (0.55-1.02); EST Glomerular Filtration Rate 81 mL/min (>60); Est Glom Filt Rate - Afr Amer 98 mL/min (>60); Estimated Creatinine Clearance 47.78 ml/min; Globulin 4.6 g/dL (2.2-4.2); Glucose 169 mg/dL (74-106); LDH 307 U/L (84-246); Lipase 81 U/L (73-393); Protein, Total 8.3 g/dL (6.4-8.2); Sodium Level 138 mmol/L (136-145)
[2018-11-07 17:01] LABS: Bacteria 0 SEEN /hpf (None Seen); Mucous, Urine 0 SEEN /hpf (<or=2+); Squamous Epithelial Cells - UA 0 SEEN /hpf (5-10); White Blood Cells 0 SEEN /hpf (0-5)
--- NOTE | 2018-11-07 17:01 | EKG12_ITS ---
Test Reason : SOB Blood Pressure : / mmHG Vent. Rate : 109 BPM Atrial Rate : 109 BPM P-R Int : 148 ms QRS Dur : 096 ms QT Int : 360 ms P-R-T Axes : 082 024 026 degrees QTc Int : 484 ms Sinus tachycardia Nonspecific ST abnormality Abnormal ECG Confirmed by GREGORY QUESADA ([id number]), editorial intern WESLY CASTAÑEDA ([id number]) on 11/16/2018 9:31:11 AM Referred By: Silva Greene Confirmed By:GREGORY QUESADA
[2018-11-07 17:05] LABS: Color, Urine Yellow (Yellow); Glucose, Dipstick Normal (Normal); Leukocyte Esterase-Dipstick Negative /ul (Negative); Nitrite-Dipstick Negative (Negative); Occult Blood-Urine 25 /ul (Negative); Protein-Dipstick 30 mg/dl (Negative); Urine Bilirubin Dipstick Negative (Negative); Urine Clarity Clear (Clear); Urine Urobilinogen Normal (Normal)
[2018-11-07 17:11] LABS: Ketone-Dipstick 150 mg/dl (Negative)
[2018-11-07 17:13] LABS: Red Blood Cells-Urine 0-5 SEEN /hpf (0-5)
[2018-11-07 17:14] LABS: Yeast-Urine RARE /hpf (None Seen)
--- NOTE | 2018-11-07 19:09 | ED.RN ---
PT ARRIVES TO ED AND ACTIVATED SEPSIS ALERT. INCOME TAX ANALYST NOTIFIED AND APPROPRIATE BLOOD WORK DRAWN. AFTER EVALUATION OF PATIENT DR VALENZUELA CONSULTED ON POSSIBLE SEPSIS. DR VALENZUELA STATED IT'S PROBABLY VIRAL BRONCHITIS. NO ORDERS WERE PLACED AT THAT TIME. Darrell GAUTHIER RN [id number]
[2018-11-07] MEDS: 0.9% Normal Saline 1,000 ML 999 ML IV (19:15)
[2018-11-07 19:57] LABS: Lactic Acid 2.6 mmol/L (0.4-2.0)
--- NOTE | 2018-11-07 20:00 | ED.RN ---
Addendum entered by Rosalba Boykin 11/07/18 20:28: notified Dr. Melendez Original Note: notified of lactic 2.6
--- NOTE | 2018-11-07 20:36 | PCM.HP.STD ---
Problem List (1) Chronic constipation Status: Chronic (2) Gastroenteritis Status: Acute (3) Stress bladder incontinence, female Status: Chronic (4) Urge incontinence Status: Chronic (5) Grade III hemorrhoids Status: Chronic (6) Hypothyroidism Status: Chronic (7) Glaucoma Status: Chronic (8) Obstipation Status: Chronic (9) Edentulous Status: Chronic (10) Urinary tract infection Status: Acute (11) Chronic hypoxemic respiratory failure Status: Chronic (12) Toxic metabolic encephalopathy Status: Chronic (13) Suicide attempt Status: Chronic (14) Phenytoin toxicity Status: Chronic (15) HABP (hospital-acquired bacterial pneumonia) Status: Ruled-out (16) Tobacco use Status: Chronic (17) Depression Status: Chronic Qualifiers: (18) Insomnia Status: Chronic Qualifiers: Comment: She takes Temazepam every night for sleep, prescribed by Dr. Veliz (19) Hypertension Status: Chronic Qualifiers: (20) Physical debility Status: Chronic (21) Degenerative disc disease, lumbar Status: Chronic (22) Pain, chronic Status: Chronic Qualifiers: Chronic pain type: chronic pain syndrome Qualified Code(s): G89.4 - Chronic pain syndrome (23) Seizure disorder Status: Chronic (24) Restless leg syndrome Status: Chronic (25) COPD (chronic obstructive pulmonary disease) Status: Chronic Qualifiers: Comment: 1 ppd now smoker 4 ppd (26) Obstructive sleep apnea Status: Chronic Comment: non-compliant with CPAP but has oxygen to wear at night (27) Smokes with greater than 40 pack year history Status: Chronic History of Present Illness Date of Admission: 11/07/18 Chief Complaint: Nausea, vomiting and diarrhea for 2 days The patient is a 68 year old F with history of tobacco use, Hypertension, Hyperlipidemia, Seizure disorder, chronic hypoxic respiratory failure on 4 L of oxygen secondary to COPD, Restless leg syndrome, Chronic pain syndrome on chronic narcotic therapy, CHUY noncompliant with CPAP came to ED with nausea, vomiting and diarrhea for 2 days. Prior to that, she had a big chunk of hard stool passed as son near the bedside. Patient has a history of chronic constipation and previous CT scan of July 2018 reviewed and shows moderate amount of stool in colon. She also had mild fever at home. In ED, her temperature was 102.4 F. Hemodynamically stable. Patient denies any abdominal pain. She was last admitted for toxic encephalopathy secondary to elevated Dilantin level in August 2018. Past Medical History Past Medical History (Chronic Problems): Chronic Problems (Last Reviewed 08/21/18 @ 09:06 by Dee Richardson MD) Stress bladder incontinence, female (Chronic) Urge incontinence (Chronic) Chronic constipation (Chronic) Grade III hemorrhoids (Chronic) Hypothyroidism (Chronic) Glaucoma (Chronic) Obstipation (Chronic) Edentulous (Chronic) Chronic hypoxemic respiratory failure (Chronic) Toxic metabolic encephalopathy (Chronic) Suicide attempt (Chronic) Phenytoin toxicity (Chronic) Tobacco use (Chronic) Depression (Chronic) Insomnia (Chronic) She takes Temazepam every night for sleep, prescribed by Dr. Veliz Hypertension (Chronic) Physical debility (Chronic) Degenerative disc disease, lumbar (Chronic) Pain, chronic (Chronic) Seizure disorder (Chronic) Restless leg syndrome (Chronic) COPD (chronic obstructive pulmonary disease) (Chronic) 1 ppd now smoker 4 ppd Obstructive sleep apnea (Chronic) non-compliant with CPAP but has oxygen to wear at night Smokes with greater than 40 pack year history (Chronic) Medical History: Medical History (Last Reviewed 08/21/18 @ 09:06 by Dee Richardson MD) Depression (Chronic) F32.9 Insomnia (Chronic) G47.00 She takes Temazepam every night for sleep, prescribed by Dr. Veliz Hypertension (Chronic) I10 Physical debility (Chronic) R53.81 Degenerative disc disease, lumbar (Chronic) M51.36 Pain, chronic (Chronic) G89.29 Seizure disorder (Chronic) G40.909 Restless leg syndrome (Chronic) COPD (chronic obstructive pulmonary disease) (Chronic) J44.9 1 ppd now smoker 4 ppd Obstructive sleep apnea (Chronic) G47.33 non-compliant with CPAP but has oxygen to wear at night Smokes with greater than 40 pack year history (Chronic) F17.210 Allergies Penicillins Allergy (Verified 11/07/18 15:12) Anaphylaxis codeine Adverse Reaction (Verified 11/07/18 15:12) Nausea Home Medications: Ambulatory Orders Medication Instructions Recorded Alendronate Sodium [Fosamax] 70 mg PO FR 05/12/16 Etodolac 400 mg PO BID 05/12/16 Temazepam [Restoril] 30 mg PO QHS 06/24/17 Mirtazapine [Remeron] 15 mg PO QHS PRN 07/03/17 Latanoprost 0.005% [Xalatan 1 drp EACH EYE QHS 07/04/17 Opthalmic] Methadone HCl 10 mg PO TID 09/04/17 Phenobarbital 32.4 mg PO BID 11/07/17 Pravastatin [Pravachol] 40 mg PO QHS 11/07/17 Sennosides/Docusate Sodium 2 each PO BID 04/03/18 [Senna-Docusate Sodium Tablet] Ranitidine HCl [Zantac] 300 mg PO DAILY 06/13/18 Risperidone 0.25 mg PO DAILY 06/13/18 Albuterol Sulfate [Ventolin Hfa] 1 - 2 puff INHALATION Q6H PRN PRN 07/14/18 Multivitamin with Minerals 1 tab PO DAILY 07/14/18 [Multiple Vitamin] Ergocalciferol [Vitamin D] 50,000 units PO MO 08/15/18 Fluticasone/Vilanterol [Breo 2 puff INHALATION BID 08/15/18 Ellipta 100-25 Mcg INH] Hydrocortisone 1% Crm [Hytone] 1 applicatio TOPICAL DAILY PRN PRN 08/15/18 Ipratropium/Albuterol Sulfate 3 ml INHALATION BID 08/15/18 [Duoneb] Metoprolol Tartrate 25 mg PO BID 08/15/18 Nicotine [Nicoderm Cq] 21 mg TOPICAL DAILY 08/15/18 Nystatin 1 applicatio TOPICAL PRN PRN 08/15/18 Potassium Chloride [K-Dur] 10 meq PO DAILY 08/15/18 Oxcarbazepine [Trileptal] 600 mg PO BID #60 tablet 08/18/18 Aspirin [Aspirin, Baby] 81 mg PO DAILY@0800 11/07/18 Duloxetine Hcl [Cymbalta] 20 mg PO DAILY 11/07/18 Levothyroxine [Synthroid] 50 mcg PO DAILY@0600 11/07/18 Mirabegron [Myrbetriq] 50 mg PO DAILY 11/07/18 Oxcarbazepine [Trileptal] 150 mg PO BID 11/07/18 Polyethylene Glycol 3350 [Miralax] 17 gm PO BID 11/07/18 Ropinirole HCl [Requip] 2 mg PO DAILY 11/07/18 Surgical History: Surgical History (Last Updated 08/18/18 @ 13:33 by Susan Lynch DO) History of right hip replacement (Inactive) Z96.641 S/P appendectomy (Inactive) Z90.49 S/P laparoscopic cholecystectomy (Inactive) Z90.49 Surgical History: appendectomy, cholecystectomy, - - Fractured right ankle, carpal tunnel surgery, removal of teeth, right ovariectomy and fallopian tube removal. Psychiatric History: Anxiety, Depression - untreated CLEAN OUT DRILLER History: No pertinent CLEAN OUT DRILLER history Smoking Status: Current every day smoker - *Family History Maternal Family History: Family History (Last Reviewed 06/13/18 @ 22:00 by Yunior Heaton MD) Mother Diabetes Heart disease Hypertension CAD (coronary artery disease) CVA (cerebral vascular accident) History Items: Diabetes Paternal Family History: Family History (Last Reviewed 06/13/18 @ 22:00 by Yunior Heaton MD) Mother Diabetes Heart disease Hypertension CAD (coronary artery disease) CVA (cerebral vascular accident) History Items: Cancer - colon Sibling Family History: Family History (Last Reviewed 06/13/18 @ 22:00 by Yunior Heaton MD) Mother Diabetes Heart disease Hypertension CAD (coronary artery disease) CVA (cerebral vascular accident) History Items: No pertinent history Review of Systems Constitutional: Reports: Chills, Fever, Malaise, - - Chronic shaking/tremors; mainly head and neck., - - No recent seizure as per the son. HEENT: Denies: Head Aches, Sinus Congestion, Sinus Drainage Cardiovascular: Denies: Chest Pain, Palpitations Respiratory: Denies: Cough, Shortness of breath at rest, Sputum production Gastrointestinal: Reports: Vomiting. Denies: Abdominal Pain, Hematemesis, Hematochezia, Nausea, Melena Genitourinary: Denies: Dysuria, Frequency, Hematuria Musculoskeletal: Reports: Back Pain, Joint Pain Skin: Reports: Dryness Neurological: Reports: Balance problems. Denies: Focal weakness, Numbness, Tingling Psychiatric: Reports: Anxiety, Depression Hematologic/ Lymphatic: Denies: Easy Bruising, Easy Bleeding VTE Information - Inpt Only VTE Present on Admission: No VTE Mechan Device Prophylaxis: None VTE Pharm Prophylaxis ordered?: Yes Patient Problems: Active and Suspected Problems (Last Reviewed 08/21/18 @ 09:06 by Dee Richardson MD) Gastroenteritis (Acute) - Physical Exam General: Alert, Oriented x3, Cooperative HEENT: Atraumatic, PERRLA, EOMI, Normocephalic Oral: Dry Mucosa Neck: Supple, No JVD, Negative Carotid Bruits Lungs: Clear to auscultation, Normal air movement, No rhonchi, No wheeze, No rales Cardiovascular: Regular rate, Regular Rhythm, Normal S1, Normal S2, No murmurs Abdomen: Bowel Sounds Present, Soft, Tender - Mild deep tenderness present in right lower quadrant. No distention. No guarding/rigidity. No palpable mass. Extremities: No edema, Capillary Refill Less than 3 Seconds Skin: No rashes, No breakdown Musculoskeletal: No Tenderness to Palpation of Joints or Extremities, Arthritic Changes Neurological: Cranial nerves II-XII grossly intact, Deep Tendon Reflexes 2+/4 and Symmetrical, Neuro grossly intact Psych/Mental Status: Normal Affect, Appropriate Vital Signs Temp Pulse Resp BP Pulse Ox 101.1 F H 93 23 H 129/83 H 98 11/07/18 18:42 11/07/18 20:03 11/07/18 20:03 11/07/18 20:03 11/07/18 20:03 Oxygen Flow Rate (L/min) 4 Oxygen Delivery Method Nasal Cannula Weight: 153 lb 3.54 oz Body Mass Index (BMI) 25.4 Laboratory Tests Past 24 Hrs 11/07/18 11/07/18 11/07/18 15:30 15:30 15:30 WBC 11.7 H RBC 4.86 Hgb 15.0 Hct 44.8 MCV 92.2 MCH 30.9 MCHC 33.5 RDW 13.7 RDW Differential 46.2 H Plt Count 290 MPV 9.4 Immature Gran % (Auto) 0.300 Neut % (Auto) 80.5 H Lymph % (Auto) 12.3 L [place] % (Auto) 6.8 Eos % (Auto) 0.0 Baso % (Auto) 0.1 Absolute Neuts (auto) 9.4 H Absolute Lymphs (auto) 1.44 Total Counted Not Reportable Sodium 138 Potassium 3.0 L Chloride 100 Carbon Dioxide 28.0 Anion Gap 10 BUN 12 Creatinine 0.75 Estim Creat Clear Calc 47.78 Est GFR (MDRD) Af Amer 98 Est GFR (MDRD) Non-Af 81 BUN/Creatinine Ratio 15.9 Glucose 169 H Lactic Acid 2.6 H Calcium 8.8 Total Bilirubin 0.50 Direct Bilirubin 0.15 AST 32 ALT 22 Alkaline Phosphatase 72 Lactate Dehydrogenase 307 H Total Protein 8.3 H Albumin 3.7 Globulin 4.6 H Lipase 81 Urine Color Urine Clarity Urine pH Ur Specific [place] Urine Protein Urine Glucose (UA) Urine Ketones Urine Occult Blood Urine Nitrite Urine Bilirubin Urine Urobilinogen Ur Leukocyte Esterase Urine RBC Urine WBC Ur Squamous Epith Cells Urine Bacteria Urine Mucus Urine Yeast 11/07/18 16:55 WBC RBC Hgb Hct MCV MCH MCHC RDW RDW Differential Plt Count MPV Immature Gran % (Auto) Neut % (Auto) Lymph % (Auto) [place] % (Auto) Eos % (Auto) Baso % (Auto) Absolute Neuts (auto) Absolute Lymphs (auto) Total Counted Sodium Potassium Chloride Carbon Dioxide Anion Gap BUN Creatinine Estim Creat Clear Calc Est GFR (MDRD) Af Amer Est GFR (MDRD) Non-Af BUN/Creatinine Ratio Glucose Lactic Acid Calcium Total Bilirubin Direct Bilirubin AST ALT Alkaline Phosphatase Lactate Dehydrogenase Total Protein Albumin Globulin Lipase Urine Color Yellow Urine Clarity Clear Urine pH 7.0 Ur Specific [place] 1.010 Urine Protein 30 H Urine Glucose (UA) Normal Urine Ketones 150 H Urine Occult Blood 25 H Urine Nitrite Negative Urine Bilirubin Negative Urine Urobilinogen Normal Ur Leukocyte Esterase Negative Urine RBC 0-5 SEEN Urine WBC 0 SEEN Ur Squamous Epith Cells 0 SEEN Urine Bacteria 0 SEEN Urine Mucus 0 SEEN Urine Yeast RARE Assessment/Plan All Active Problems (Last Reviewed 08/21/18 @ 09:06 by Dee Richardson MD) Gastroenteritis (Acute) Urinary tract infection (Acute) HABP (hospital-acquired bacterial pneumonia) (Ruled-out) The patient is a 68 year old F with history of tobacco use, Hypertension, Hyperlipidemia, Seizure disorder, chronic hypoxic respiratory failure on 4 L of oxygen secondary to COPD, Restless leg syndrome, Chronic pain syndrome on chronic narcotic therapy, CHUY noncompliant with CPAP came to ED with nausea, vomiting and diarrhea for 2 days. Prior to that, she had a big chunk of hard stool passed as son near the bedside. Patient has a history of chronic constipation and previous CT scan of July 2018 reviewed and shows moderate amount of stool in colon. She also had mild fever at home. In ED, her temperature was 102.4 F. Hemodynamically stable. Patient denies any abdominal pain. She was last admitted for toxic encephalopathy secondary to elevated Dilantin level in August 2018. ER labs shows K3.0, lactic acid 2.6, mild leukocytosis 11.7 thousand. No bands. 1. Acute gastroenteritis probably viral gastroenteritis or secondary to chronic constipation: Patient is being admitted on [facility] floor. No abdominal imaging done in ED, abdominal x-ray including pelvis ordered. Patient denies GI bleed. Last colonoscopy about 1-2 year ago was normal as per son. Conservative treatment with antiemetics, IV fluid renal from lactate. Enteric bacteriology panel, stool for occult blood and lactoferrin ordered. Serum Dilantin, U tox also ordered. Patient denies any recent antibiotic intake. 2. Chronic constipation: Patient had diarrhea started after passing big chunk of hard stool so possible spurious diarrhea. 3. History of epilepsy/seizure disorder and Dilantin toxicity and encephalopathy with suicidal ideation. No Recent seizure. Currently patient is on Trileptal 600 mg twice daily. 4. Other chronic comorbidities include chronic hypoxic respiratory failure on 4 L of oxygen, hypothyroidism, chronic tremors: Is stable. 5. Hypertension, dyslipidemia, restless leg syndrome and chronic pain disorder: Home medication reconciliation done. DVT prophylaxis: Lovenox 40 minutes subcu daily if stool for occult blood negative. Code Visit OBSV E&M: 19451 Initial observation care L3
[2018-11-07 21:16] LABS: GGTP 64 U/L (5-55)
[2018-11-07 21:20] LABS: Amphetamine Urine VISTA NEGATIVE (<1000 ng/mL); Barbiturate Urine VISTA POSITIVE (< 200 ng/mL); Benzodiazepine Urine VISTA NEGATIVE (< 200 ng/mL); Cocaine Urine VISTA NEGATIVE (< 300 ng/mL); Ecstacy Urine VISTA NEGATIVE (< 500 ng/mL); Methadone Urine VISTA NEGATIVE (< 300 ng/mL); PCP Urine VISTA NEGATIVE (< 25 ng/mL); THC Urine VISTA NEGATIVE (< 50 ng/mL); Vista UDS pH Range 6
[2018-11-07 21:23] LABS: Phenytoin (Dilantin) Level < 0.4 mL (10.0-20.0)
--- NOTE | 2018-11-07 21:25 | RAD_ITS ---
STUDY: X-RAY - ABDOMEN/PELVIS REASON FOR EXAM: Female, 68 years old. Nausea and vomiting. TECHNIQUE: AP supine and decubitus views of the abdomen and pelvis. COMPARISON: February 01, 2018 FINDINGS: Normal visualized lung bases. There is mild distention of bowel loops. There is moderate stool. There is no demonstrated free abdominal air. There are surgical clips in the right upper quadrant of the abdomen. There is right hip replacement. There is degenerative change of the spine . RAD/Abd Inc Decub and/or Erect IMPRESSION: There is mild distention of bowel loops with ileus or enteritis Electronically Signed: Ang Mazarigeos MD at 22:38 EDT , Service support ,
--- NOTE | 2018-11-07 21:32 | NURSING ---
Checked with ER charge nurse regarding a broad spectrum antibiotic since this pt triggered a sepsis alert. They responded that Dr. Melendez didn't think it was necessary.
[2018-11-07 21:33] LABS: Magnesium 2.2 mg/dL (1.6-2.6); Phosphorus 2.4 mg/dL (2.5-4.9)
--- NOTE | 2018-11-07 21:56 | NURSING ---
Pt's son, Yaakov, provided the health hx etc when pt was admitted. He states that the pt sees Dr. Andujar for pain management. He further indicated that pt is able to talk but will usually answer yes or no to questions when she is stressed but she is able to talk ok. She lives alone and has a home health aid that comes in Mon-Fri and every other Sat. He further advises that pt uses a rollator because she is very unsteady with a standard walker. Son indicates that pt sometimes will answer yes to every question a physician asks her.
[2018-11-07] MEDS: Lactated Ringers 1,000 ML 100 ML IV (23:12)
[2018-11-07] MEDS: Potassium Chloride 10mEq/100mL 10 MEQ/100 ML IV.SOLN. 100 MEQ IV BOLUS (23:12)
[2018-11-07] MEDS: 0.9% NaCl Peripheral Flush Adult/Peds IV (23:15)
[2018-11-07 23:31] LABS: Bedside Glucose 138 mg/dL (70-110)
[2018-11-07 23:40] LABS: Reflex Lactate? Y
[2018-11-07] MEDS: Morphine 2 MG/ML Syringe IV (23:51)
[2018-11-08 00:31] LABS: Lactic Acid 1.3 mmol/L (0.4-2.0)
[2018-11-08] MEDS: Potassium Chloride 10mEq/100mL 10 MEQ/100 ML IV.SOLN. 100 MEQ IV BOLUS ×3 (00:46→04:38)
[2018-11-08 03:37] VITALS: BP 119/87; PULSE 91; RESP 18; TEMP 37.6; O2SAT 99
[2018-11-08] MEDS: Morphine 2 MG/ML Syringe IV ×2 (03:43→19:38)
[2018-11-08 06:18] LABS: Absolute Lymphocyte Count 2.32 X10^3/ul (0.83-4.51); Absolute Neutrophil Count 9.2 X10^3/uL (2.0-7.7); Basophil# 0.02 X10^3/uL; Basophil% 0.2 % (0-1); Hematocrit 40.4 % (37-47); Hemoglobin 13.1 g/dl (12.0-15.0); Lymphocyte # 2.32 X10^3/ul (4.0); Lymphocyte % 17.9 % (19-41); Mean Corp Hgb Conc 32.4 g/gl (32-36); Mean Corpuscular Hgb 30.2 pg (27.0-32.0); Mean Corpuscular Volume 93.1 fL (81-99); Mean Platelet Vol. 9.2 fl (6.2-12.0); Monocyte# 1.39 X10^3/uL; Monocyte% 10.7 % (0-10); Neutrophil # 9.22 X10^3/uL (2.7-7.7); Neutrophil % 70.9 % (47-70); Platelet Count 252 K/mm3 (150-450); RBC Distribution Width CV 13.7 % (11.6-14.6); RBC Distribution Width SD 45.3 fl (35.1-43.9); Red Blood Count 4.34 M/mm3 (4.2-5.4)
[2018-11-08 06:20] LABS: POSITIVE COUNT NO; POSITIVE DIFFERENTIAL NO; POSITIVE MORPHOLOGY NO
[2018-11-08 07:02] LABS: Anion Gap 8 (5-15); BUN 15 mg/dL (7-18); BUN/Creat Ratio 27.7 RATIO (10-20); Calcium,Total 7.8 mg/dL (8.5-10.1); Chloride 109 mmol/L (98-107); Creatinine, Serum 0.54 mg/dL (0.55-1.02); EST Glomerular Filtration Rate 118 mL/min (>60); Est Glom Filt Rate - Afr Amer 143 mL/min (>60); Estimated Creatinine Clearance 45.85 ml/min; Glucose 132 mg/dL (74-106); Potassium 4.1 mmol/L (3.5-5.1); Sodium Level 142 mmol/L (136-145); T4 Free Direct 0.98 ng/dL (0.76-1.46); Thyroid Stim Hormone (TSH) 0.64 uIU/mL (0.358-3.74)
[2018-11-08 07:11] LABS: Bedside Glucose 126 mg/dL (70-110)
[2018-11-08 08:34] VITALS: BP 115/61; PULSE 69; RESP 18; TEMP 37; O2SAT 95
[2018-11-08] MEDS: Acetaminophen 325 MG Tablet 650 MG PO (08:36)
--- NOTE | 2018-11-08 10:24 | CASEMGMT ---
Social Work Note SW reviewed previous notes, pt's CM at [facility] is Beata Chen. SW placed a call to Beata Chen, left message updating her on pt's admission to [facility]. GRAHAM will fax discharge paperwork to Beata once pt is discharged. Cheyanne Cee BREAKER MECHANIC, NETWORK ASSOCIATE
[2018-11-08] MEDS: Lactated Ringers 1,000 ML 100 ML IV (11:18)
--- NOTE | 2018-11-08 11:48 | RAD_ITS ---
STUDY: GASTROGRAFIN ENEMA. REASON FOR EXAM: Female, 68 years old. Constipation. FLUOROSCOPY TIME (if supplied): (0:38) minutes/seconds TECHNIQUE: Attempted Gastrografin enema was performed. Despite several attempts, the patient was unable to retain the Gastrografin. COMPARISON: None. FINDINGS: Incomplete study. RAD/Barium Enema No Air Cont IMPRESSION: Incomplete study. Electronically Signed: Isaias Munroe, at 15:16 EDT , Service support ,
--- NOTE | 2018-11-08 11:55 | CON.PCM_ITS ---
Problem List (1) Rectal prolapse Status: Acute Reason for Consult Date of Consultation: 11/08/18 History of Present Illness: The patient is a 68 year old F who was admitted yesterday with nausea vomiting, Chronic constipation possible gastroenteritis.. I was asked to see her today by written compromise surgical consult will return to her. The patient apparently was constipated received an enema in the hospital day had a large bowel movement and then by nursing report was felt to have rectal prolapse that was reduced per nursing but immediately reoccurred. I have been asked to see her for the rectal prolapse. Upon inspecting the patient lying in left lateral decubitus position in bed there are certainly stage IV internal/external hemorrhoids. I am not detecting a rectal prolapse at this moment. The patient is quite jittery hyper anxious active. Tremors. She states that she has never had any occasion of rectal prolapse at home. She has had a remote many year ago colonoscopy nothing recently. She currently denies any abdominal pain. She denies any nausea or current vomiting. Her laboratory yesterday demonstrated a white count of 11.7 today is 13. Hemoglobin today is 13.1 with hematocrit 40.7 and platelet count of 252,000. BUN is 15 and creatinine 0.54. Lactic acid level yesterday was 2.6 today is 1.3. The patient states that she has had a very remote cholecystectomy and that she has had a remote salpingo-oophorectomy. Past Medical History Past Medical History (Chronic Problems): Chronic Problems (Last Reviewed 08/21/18 @ 09:06 by Dee Richardson MD) Stress bladder incontinence, female (Chronic) Urge incontinence (Chronic) Chronic constipation (Chronic) Grade III hemorrhoids (Chronic) Hypothyroidism (Chronic) Glaucoma (Chronic) Obstipation (Chronic) Edentulous (Chronic) Chronic hypoxemic respiratory failure (Chronic) Toxic metabolic encephalopathy (Chronic) Suicide attempt (Chronic) Phenytoin toxicity (Chronic) Tobacco use (Chronic) Depression (Chronic) Insomnia (Chronic) She takes Temazepam every night for sleep, prescribed by Dr. Veliz Hypertension (Chronic) Physical debility (Chronic) Degenerative disc disease, lumbar (Chronic) Pain, chronic (Chronic) Seizure disorder (Chronic) Restless leg syndrome (Chronic) COPD (chronic obstructive pulmonary disease) (Chronic) 1 ppd now smoker 4 ppd Obstructive sleep apnea (Chronic) non-compliant with CPAP but has oxygen to wear at night Smokes with greater than 40 pack year history (Chronic) Medical History: Medical History (Last Reviewed 08/21/18 @ 09:06 by Dee Richardson MD) Depression (Chronic) F32.9 Insomnia (Chronic) G47.00 She takes Temazepam every night for sleep, prescribed by Dr. Veliz Hypertension (Chronic) I10 Physical debility (Chronic) R53.81 Degenerative disc disease, lumbar (Chronic) M51.36 Pain, chronic (Chronic) G89.29 Seizure disorder (Chronic) G40.909 Restless leg syndrome (Chronic) COPD (chronic obstructive pulmonary disease) (Chronic) J44.9 1 ppd now smoker 4 ppd Obstructive sleep apnea (Chronic) G47.33 non-compliant with CPAP but has oxygen to wear at night Smokes with greater than 40 pack year history (Chronic) F17.210 Allergies Penicillins Allergy (Verified 11/07/18 15:12) Anaphylaxis codeine Adverse Reaction (Verified 11/07/18 15:12) Nausea Home Medications: Ambulatory Orders Medication Instructions Recorded Alendronate Sodium [Fosamax] 70 mg PO FR 05/12/16 Etodolac 400 mg PO BID 05/12/16 Temazepam [Restoril] 30 mg PO QHS 06/24/17 Mirtazapine [Remeron] 15 mg PO QHS PRN 07/03/17 Latanoprost 0.005% [Xalatan 1 drp EACH EYE QHS 07/04/17 Opthalmic] Methadone HCl 10 mg PO TID 09/04/17 Phenobarbital 32.4 mg PO BID 11/07/17 Pravastatin [Pravachol] 40 mg PO QHS 11/07/17 Sennosides/Docusate Sodium 2 each PO BID 04/03/18 [Senna-Docusate Sodium Tablet] Ranitidine HCl [Zantac] 300 mg PO DAILY 06/13/18 Risperidone 0.25 mg PO DAILY 06/13/18 Albuterol Sulfate [Ventolin Hfa] 1 - 2 puff INHALATION Q6H PRN PRN 07/14/18 Multivitamin with Minerals 1 tab PO DAILY 07/14/18 [Multiple Vitamin] Ergocalciferol [Vitamin D] 50,000 units PO MO 08/15/18 Fluticasone/Vilanterol [Breo 2 puff INHALATION BID 08/15/18 Ellipta 100-25 Mcg INH] Hydrocortisone 1% Crm [Hytone] 1 applicatio TOPICAL DAILY PRN PRN 08/15/18 Ipratropium/Albuterol Sulfate 3 ml INHALATION BID 08/15/18 [Duoneb] Metoprolol Tartrate 25 mg PO BID 08/15/18 Nicotine [Nicoderm Cq] 21 mg TOPICAL DAILY 08/15/18 Nystatin 1 applicatio TOPICAL PRN PRN 08/15/18 Potassium Chloride [K-Dur] 10 meq PO DAILY 08/15/18 Oxcarbazepine [Trileptal] 600 mg PO BID #60 tablet 08/18/18 Aspirin [Aspirin, Baby] 81 mg PO DAILY@0800 11/07/18 Duloxetine Hcl [Cymbalta] 20 mg PO DAILY 11/07/18 Levothyroxine [Synthroid] 50 mcg PO DAILY@0600 11/07/18 Mirabegron [Myrbetriq] 50 mg PO DAILY 11/07/18 Oxcarbazepine [Trileptal] 150 mg PO BID 11/07/18 Polyethylene Glycol 3350 [Miralax] 17 gm PO BID 11/07/18 Ropinirole HCl [Requip] 2 mg PO DAILY 11/07/18 Surgical History: Surgical History (Last Updated 08/18/18 @ 13:33 by Susan Lynch DO) History of right hip replacement (Inactive) Z96.641 S/P appendectomy (Inactive) Z90.49 S/P laparoscopic cholecystectomy (Inactive) Z90.49 Surgical History: appendectomy, cholecystectomy, - - Fractured right ankle, carpal tunnel surgery, removal of teeth, right ovariectomy and fallopian tube removal. 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 Smoking Status: Current every day smoker - *Family History Maternal Family History: Family History (Last Reviewed 06/13/18 @ 22:00 by Yunior Heaton MD) Mother Diabetes Heart disease Hypertension CAD (coronary artery disease) CVA (cerebral vascular accident) History Items: Diabetes Paternal Family History: Family History (Last Reviewed 06/13/18 @ 22:00 by Yunior Heaton MD) Mother Diabetes Heart disease Hypertension CAD (coronary artery disease) CVA (cerebral vascular accident) History Items: Cancer - colon Sibling Family History: Family History (Last Reviewed 06/13/18 @ 22:00 by Yunior Heaton MD) Mother Diabetes Heart disease Hypertension CAD (coronary artery disease) CVA (cerebral vascular accident) History Items: No pertinent history Review of Systems Constitutional: Denies: Fever HEENT: Denies: Difficulty Swallowing Cardiovascular: Denies: Chest Pain Respiratory: Reports: Shortness of Breath Gastrointestinal: Denies: Abdominal Pain, Nausea Neurological: Reports: Balance problems Endocrine: Denies: Change in Body Habitus Patient Problems: Active and Suspected Problems (Last Reviewed 08/21/18 @ 09:06 by Dee Richardson MD) Gastroenteritis (Acute) Rectal prolapse (Acute) - Physical Exam General: Alert, - - Jittery anxious HEENT: Atraumatic Oral: Moist Mucosa Neck: Supple Lungs: Clear to auscultation, - - 2 L of oxygen in place Cardiovascular: Regular rate, Regular Rhythm Abdomen: Bowel Sounds Present, Soft, Non Tender, Non-Distended, - - Rectal exam demonstrates grade 3-4 internal/external hemorrhoids. On very deep palpation suggestive of possible intussuscepted colon. Skin: - - Excoriated injury right lateral proximal calf Vital Signs Temp Pulse Resp BP Pulse Ox 98.6 F 69 18 115/61 95 11/08/18 08:34 11/08/18 08:34 11/08/18 08:34 11/08/18 08:34 11/08/18 08:34 Oxygen Flow Rate (L/min) 4 Oxygen Delivery Method Room Air Weight: 154 lb 12.232 oz Body Mass Index (BMI) 25.7 Intake and Output for Last 24 Hours 11/06/18 11/07/18 11/08/18 23:59 23:59 23:59 Intake Total 2063 / 2063 Output Total 200 / 200 Balance 1864 / 1864 Laboratory Tests Past 24 Hrs 11/07/18 11/07/18 11/07/18 15:30 15:30 15:30 WBC 11.7 H RBC 4.86 Hgb 15.0 Hct 44.8 MCV 92.2 MCH 30.9 MCHC 33.5 RDW 13.7 RDW Differential 46.2 H Plt Count 290 MPV 9.4 Immature Gran % (Auto) 0.300 Neut % (Auto) 80.5 H Lymph % (Auto) 12.3 L Bremer % (Auto) 6.8 Eos % (Auto) 0.0 Baso % (Auto) 0.1 Absolute Neuts (auto) 9.4 H Absolute Lymphs (auto) 1.44 Total Counted Not Reportable Sodium 138 Potassium 3.0 L Chloride 100 Carbon Dioxide 28.0 Anion Gap 10 BUN 12 Creatinine 0.75 Estim Creat Clear Calc 47.78 Est GFR (MDRD) Af Amer 98 Est GFR (MDRD) Non-Af 81 BUN/Creatinine Ratio 15.9 Glucose 169 H Lactic Acid 2.6 H Calcium 8.8 Phosphorus Magnesium Total Bilirubin 0.50 Direct Bilirubin 0.15 GGT AST 32 ALT 22 Alkaline Phosphatase 72 Lactate Dehydrogenase 307 H Total Protein 8.3 H Albumin 3.7 Globulin 4.6 H Lipase 81 TSH Free T4 Urine Color Urine Clarity Urine pH Ur Specific [place] Urine Protein Urine Glucose (UA) Urine Ketones Urine Occult Blood Urine Nitrite Urine Bilirubin Urine Urobilinogen Ur Leukocyte Esterase Urine RBC Urine WBC Ur Squamous Epith Cells Urine Bacteria Urine Mucus Urine Yeast Urine Opiates Screen Urine Methadone Screen Ur Barbiturates Screen Phenytoin Ur Phencyclidine Scrn Ur Amphetamines Screen U Methamphetamin-MDMA U Benzodiazepines Scrn Urine Cocaine Screen U Cannabinoids Screen Ur Drug Screen Comment 11/07/18 11/07/18 11/07/18 15:30 15:30 15:30 WBC RBC Hgb Hct MCV MCH MCHC RDW RDW Differential Plt Count MPV Immature Gran % (Auto) Neut % (Auto) Lymph % (Auto) Bremer % (Auto) Eos % (Auto) Baso % (Auto) Absolute Neuts (auto) Absolute Lymphs (auto) Total Counted Sodium Potassium Chloride Carbon Dioxide Anion Gap BUN Creatinine Estim Creat Clear Calc Est GFR (MDRD) Af Amer Est GFR (MDRD) Non-Af BUN/Creatinine Ratio Glucose Lactic Acid Calcium Phosphorus 2.4 L Magnesium 2.2 Total Bilirubin Direct Bilirubin GGT 64 H AST ALT Alkaline Phosphatase Lactate Dehydrogenase Total Protein Albumin Globulin Lipase TSH Free T4 Urine Color Urine Clarity Urine pH Ur Specific [place] Urine Protein Urine Glucose (UA) Urine Ketones Urine Occult Blood Urine Nitrite Urine Bilirubin Urine Urobilinogen Ur Leukocyte Esterase Urine RBC Urine WBC Ur Squamous Epith Cells Urine Bacteria Urine Mucus Urine Yeast Urine Opiates Screen Urine Methadone Screen Ur Barbiturates Screen Phenytoin < 0.4 L Ur Phencyclidine Scrn Ur Amphetamines Screen U Methamphetamin-MDMA U Benzodiazepines Scrn Urine Cocaine Screen U Cannabinoids Screen Ur Drug Screen Comment 11/07/18 11/07/18 11/08/18 16:55 16:55 00:00 WBC RBC Hgb Hct MCV MCH MCHC RDW RDW Differential Plt Count MPV Immature Gran % (Auto) Neut % (Auto) Lymph % (Auto) Bremer % (Auto) Eos % (Auto) Baso % (Auto) Absolute Neuts (auto) Absolute Lymphs (auto) Total Counted Sodium Potassium Chloride Carbon Dioxide Anion Gap BUN Creatinine Estim Creat Clear Calc Est GFR (MDRD) Af Amer Est GFR (MDRD) Non-Af BUN/Creatinine Ratio Glucose Lactic Acid 1.3 Calcium Phosphorus Magnesium Total Bilirubin Direct Bilirubin GGT AST ALT Alkaline Phosphatase Lactate Dehydrogenase Total Protein Albumin Globulin Lipase TSH Free T4 Urine Color Yellow Urine Clarity Clear Urine pH 7.0 Ur Specific [place] 1.010 Urine Protein 30 H Urine Glucose (UA) Normal Urine Ketones 150 H Urine Occult Blood 25 H Urine Nitrite Negative Urine Bilirubin Negative Urine Urobilinogen Normal Ur Leukocyte Esterase Negative Urine RBC 0-5 SEEN Urine WBC 0 SEEN Ur Squamous Epith Cells 0 SEEN Urine Bacteria 0 SEEN Urine Mucus 0 SEEN Urine Yeast RARE Urine Opiates Screen NEGATIVE Urine Methadone Screen NEGATIVE Ur Barbiturates Screen POSITIVE H Phenytoin Ur Phencyclidine Scrn NEGATIVE Ur Amphetamines Screen NEGATIVE U Methamphetamin-MDMA NEGATIVE U Benzodiazepines Scrn NEGATIVE Urine Cocaine Screen NEGATIVE U Cannabinoids Screen NEGATIVE Ur Drug Screen Comment 11/08/18 11/08/18 05:44 05:44 WBC 13.0 H RBC 4.34 Hgb 13.1 Hct 40.4 MCV 93.1 MCH 30.2 MCHC 32.4 RDW 13.7 RDW Differential 45.3 H Plt Count 252 MPV 9.2 Immature Gran % (Auto) 0.300 Neut % (Auto) 70.9 H Lymph % (Auto) 17.9 L Bremer % (Auto) 10.7 H Eos % (Auto) 0.0 Baso % (Auto) 0.2 Absolute Neuts (auto) 9.2 H Absolute Lymphs (auto) 2.32 Total Counted Not Reportable Sodium 142 Potassium 4.1 Chloride 109 H Carbon Dioxide 25.0 Anion Gap 8 BUN 15 Creatinine 0.54 L Estim Creat Clear Calc 45.85 Est GFR (MDRD) Af Amer 143 Est GFR (MDRD) Non-Af 118 BUN/Creatinine Ratio 27.7 H Glucose 132 H Lactic Acid Calcium 7.8 L Phosphorus Magnesium Total Bilirubin Direct Bilirubin GGT AST ALT Alkaline Phosphatase Lactate Dehydrogenase Total Protein Albumin Globulin Lipase TSH 0.64 Free T4 0.98 Urine Color Urine Clarity Urine pH Ur Specific [place] Urine Protein Urine Glucose (UA) Urine Ketones Urine Occult Blood Urine Nitrite Urine Bilirubin Urine Urobilinogen Ur Leukocyte Esterase Urine RBC Urine WBC Ur Squamous Epith Cells Urine Bacteria Urine Mucus Urine Yeast Urine Opiates Screen Urine Methadone Screen Ur Barbiturates Screen Phenytoin Ur Phencyclidine Scrn Ur Amphetamines Screen U Methamphetamin-MDMA U Benzodiazepines Scrn Urine Cocaine Screen U Cannabinoids Screen Ur Drug Screen Comment POC Glucose 11/08/18 11/07/18 06:56 23:22 POC Glucose 126 H 138 H Assessment/Plan All Active Problems (Last Reviewed 08/21/18 @ 09:06 by Dee Richardson MD) Gastroenteritis (Acute) Rectal prolapse (Acute) Urinary tract infection (Acute) HABP (hospital-acquired bacterial pneumonia) (Ruled-out) Patient with report of having a very large formed stool followed by what was felt to be rectal prolapse. Currently clinically she has grade 3-4 hemorrhoids. It is not clear to me on digital exam with her he possibly could have intussusception more proximally. Patient has significant COPD requiring constant oxygen. I recommend that we obtain a Gastrografin enema for diagnosis and potential to reduce any intussusception that might be present. We will proceed with that today. I appreciate the opportunity of assisting with her surgical care Sinan Wright M.D., F.A.C.S. November 08, 2018 6 PM Additional secondary patient visit and evaluation The Gastrografin enema earlier today was incomplete. The patient could not hold the material. I have personally inspected the films. There is definition of the rectum distal and mid sigmoid. Diverticulosis is noted. I am not seeing distinct evidence of obstruction or mass. At this point there was nursing description of rectal prolapse. I have detected so far hemorrhoids but if not detected rectal prolapse or mass. The radiologic imaging study incomplete. I have offered the patient a flexible sigmoidoscopy tomorrow morning. She is recently within the past year had a complete colonoscopy and this is not required. A careful inspection of the sigmoid rectosigmoid area should be sufficient. If no lead point or evidence that would suggest prolapse is identified then conservative measures will be recommended. I have discussed with the patient the current recommendations benefit risk complications. She has had an opportunity to ask and have questions answered. She is agreeable. She has been placed on clear liquids. We will proceed as noted tomorrow morning. Sinan Wright M.D., F.A.C.S.
--- NOTE | 2018-11-08 12:00 | CASEMGMT ---
ERIC BELLE COSMETIC MAKER CM to room to meet with patient for initial transition planning/care coordination assessment. ERIC BELLE introduced self and role at [facility]. Pt voices understanding and consents to assessment at this time. Pt resting in bed in no distress at this time. Pt is A/O at this time to name and place. Pt states she is forgetful at times. Pt able to state correct address, give details about aides that come to her home, and answers all questions appropriately at this time. Care providers, pharmacy, and demographics verified/updated at this time PCP: Jose Alfredo Specialists: [employer]. Preferred Pharmacy: [facility] Insurance: [employer]. Prescription Benefit: Yes Living Will/HPOA: Has both LW and HCPOA, who is her son, Yaakov. . Copies of both found in e-chart. Pt made aware. LNOK: SonYaakov. Living Arrangements: Lives alone in 3rd-floor apt w/elevator. has an aide come to her home M-F and every other Sat for 3 hrs each day. She states the aide assists her with her shower and does laundry. Pt states she receives Meals on Wheels and makes her meals on other days. Son buys her groceries. Transportation: [employer]. States if she goes home on d/c, she thinks her son can drive her home. DME: has the following DME: shower chair, raised toilet seat, lift chair, rails/grab bars, hand held shower, rollator, W/C, medical alert button, nebulizer, and O2 @ 2 L/M continuously through [employer]. Pt states no need for further DME at this time. HHC/SNF: Hx of [facility] and [facility]. Pt states she wishes to go to [facility] @ discharge. SW, Cheyanne Cee, made aware. Pt stated if she is unable to go to [facility], then she would like to go home w/HHC. CM to follow for discharge planning/needs. Pt voices no further concerns/needs at this time. Advised pt to ask for CM if any further questions/concerns/needs arise. Voices understanding. PLAN: SNF. Pt prefers [facility]. Mariam LARSON RN, CM
--- NOTE | 2018-11-08 13:32 | CASEMGMT ---
Social Work Note RN YOSHI Lipscomb updated this worker that pt is agreeable to [facility] at discharge. GRAHAM placed a call to Rebeca at [facility], provided referral. GRAHAM informed Rebeca that if she is able to accept pt to submit for pre-cert. GRAHAM faxed referral. Plan: [facility] pending acceptance and pre-cert Cheyanne Cee APPLICATION PACKAGING CONSULTANT, NATURAL SCIENCES MANAGER
--- NOTE | 2018-11-08 13:47 | PCM.PN.HOSP ---
Patient Problems: Active and Suspected Problems (Last Reviewed 08/21/18 @ 09:06 by Dee Richardson MD) Gastroenteritis (Acute) Rectal prolapse (Acute) Subjective: Patient seen and examined. He was admitted with a complaint of diarrhea and was managed for gastroenteritis. Patient says diarrhea has stopped but she was just very constipated. Review of systems otherwise negative. Labs and vitals reviewed. Vitals/I&O's: Vital Signs Temp Pulse Resp BP Pulse Ox 98.6 F 69 18 115/61 95 11/08/18 08:34 11/08/18 08:34 11/08/18 08:34 11/08/18 08:34 11/08/18 08:34 Oxygen Flow Rate (L/min) 3 Oxygen Delivery Method Room Air Weight: 154 lb 12.232 oz Body Mass Index (BMI) 25.7 Intake and Output for Last 24 Hours 11/06/18 11/07/18 11/08/18 23:59 23:59 23:59 Intake Total 2063 / 2063 Output Total 200 / 200 Balance 1863 / 1863 General: Alert, Oriented x3, Cooperative, No apparent distress HEENT: Atraumatic, PERRLA, EOMI, Normocephalic Oral: Moist Mucosa Neck: Supple, No JVD, Negative Carotid Bruits Lungs: Clear to auscultation, Normal air movement, No rhonchi, No wheeze, No rales, - - on 3L of oxygen, which is chronic Cardiovascular: Regular rate, Regular Rhythm, Normal S1, Normal S2, No murmurs Abdomen: Bowel Sounds Present, Soft, Non Tender, Non-Distended, No Hepato-splenomegaly, Passing Flatus Extremities: No clubbing, No cyanosis, No edema, Capillary Refill Less than 3 Seconds Skin: No rashes, No breakdown Musculoskeletal: No Tenderness to Palpation of Joints or Extremities Lymphatic: No Cervical, Supraclavicular, or Inguinal Adenopathy Neurological: Cranial nerves II-XII grossly intact, Neuro grossly intact, Motor Exam 5/5 strength throughout Psych/Mental Status: Normal Affect, Appropriate, Alert and oriented to time, place, person, mood and affect Microbiology Past 72 Hours 11/08/18 11:20 Stool Stool Lactoferrin - Final 11/08/18 11:20 Stool Stool Occult Blood (JASWANT) - Final Laboratory Results 11/07/18 15:30: WBC 11.7 H, RBC 4.86, Hgb 15.0, Hct 44.8, MCV 92.2, MCH 30.9, MCHC 33.5, RDW 13.7, RDW Differential 46.2 H, Plt Count 290, MPV 9.4, Immature Gran % (Auto) 0.300, Neut % (Auto) 80.5 H, Lymph % (Auto) 12.3 L, [place] % (Auto) 6.8, Eos % (Auto) 0.0, Baso % (Auto) 0.1, Absolute Neuts (auto) 9.4 H, Absolute Lymphs (auto) 1.44, Total Counted Not Reportable 11/07/18 15:30: Sodium 138, Potassium 3.0 L, Chloride 100, Carbon Dioxide 28.0, Anion Gap 10, BUN 12, Creatinine 0.75, Estim Creat Clear Calc 47.78, Est GFR (MDRD) Af Amer 98, Est GFR (MDRD) Non-Af 81, BUN/Creatinine Ratio 15.9, Glucose 169 H, Calcium 8.8, Total Bilirubin 0.50, Direct Bilirubin 0.15, AST 32, ALT 22, Alkaline Phosphatase 72, Lactate Dehydrogenase 307 H, Total Protein 8.3 H, Albumin 3.7, Globulin 4.6 H, Lipase 81 11/07/18 15:30: Lactic Acid 2.6 H 11/07/18 15:30: GGT 64 H 11/07/18 15:30: Phenytoin < 0.4 L 11/07/18 15:30: Phosphorus 2.4 L, Magnesium 2.2 11/07/18 16:55: Urine Color Yellow, Urine Clarity Clear, Urine pH 7.0, Ur Specific [place] 1.010, Urine Protein 30 H, Urine Glucose (UA) Normal, Urine Ketones 150 H, Urine Occult Blood 25 H, Urine Nitrite Negative, Urine Bilirubin Negative, Urine Urobilinogen Normal, Ur Leukocyte Esterase Negative, Urine RBC 0-5 SEEN, Urine WBC 0 SEEN, Ur Squamous Epith Cells 0 SEEN, Urine Bacteria 0 SEEN, Urine Mucus 0 SEEN, Urine Yeast RARE 11/07/18 16:55: Urine Opiates Screen NEGATIVE, Urine Methadone Screen NEGATIVE, Ur Barbiturates Screen POSITIVE H, Ur Phencyclidine Scrn NEGATIVE, Ur Amphetamines Screen NEGATIVE, U Methamphetamin-MDMA NEGATIVE, U Benzodiazepines Scrn NEGATIVE, Urine Cocaine Screen NEGATIVE, U Cannabinoids Screen NEGATIVE, Ur Drug Screen Comment 11/07/18 23:22: POC Glucose 138 H 11/08/18 00:00: Lactic Acid 1.3 11/08/18 05:44: Sodium 142, Potassium 4.1, Chloride 109 H, Carbon Dioxide 25.0, Anion Gap 8, BUN 15, Creatinine 0.54 L, Estim Creat Clear Calc 45.85, Est GFR (MDRD) Af Amer 143, Est GFR (MDRD) Non-Af 118, BUN/Creatinine Ratio 27.7 H, Glucose 132 H, Calcium 7.8 L, TSH 0.64, Free T4 0.98 11/08/18 05:44: WBC 13.0 H, RBC 4.34, Hgb 13.1, Hct 40.4, MCV 93.1, MCH 30.2, MCHC 32.4, RDW 13.7, RDW Differential 45.3 H, Plt Count 252, MPV 9.2, Immature Gran % (Auto) 0.300, Neut % (Auto) 70.9 H, Lymph % (Auto) 17.9 L, [place] % (Auto) 10.7 H, Eos % (Auto) 0.0, Baso % (Auto) 0.2, Absolute Neuts (auto) 9.2 H, Absolute Lymphs (auto) 2.32, Total Counted Not Reportable 11/08/18 06:56: POC Glucose 126 H Diagnostic Data Chest X-Ray 11/07/18 15:33 IMPRESSION: Stable borderline cardiomegaly with hyperexpansion. No acute finding. Electronically Signed: Maximino Whitney MD at 15:58 EDT , Service support , Abdomen X-Ray 11/07/18 21:25 IMPRESSION: There is mild distention of bowel loops with ileus or enteritis Electronically Signed: Ang Mazariegos MD at 22:38 EDT , Service support , Current Medications Acetaminophen (Tylenol) 650 mg PO Q6H PRN PRN PRN Reason: Mild Pain (1-3)/Temp > 100.7 F Last Admin: 11/08/18 08:36 Dose: 650 mg Bisacodyl (Dulcolax) 10 mg RECTAL DAILY PRN PRN Reason: constipation Dextrose (D50w Syringe) 0 gm IV X1 PRN; Protocol PRN Reason: Hypoglycemia Glucagon () 1 mg IM .X1 PRN PRN Reason: Hypoglycemia Lactated Ringer's () 1,000 mls @ 100 mls/hr IV .Q10H CHEN Last Admin: 11/08/18 11:18 Dose: 100 mls/hr Morphine Sulfate () 2 mg IV Q3H PRN PRN PRN Reason: Severe pain (7-10/10) Last Admin: 11/08/18 03:43 Dose: 2 mg Nutritional Formula (Lactose Free) (Ensure Enlive) 120 ml PO 4X/DAY CHEN Ondansetron HCl (Zofran) 4 mg IV Q8H PRN PRN PRN Reason: NAUSEA/VOMITING Promethazine HCl (Phenergan) 25 mg IV Q6H PRN PRN PRN Reason: Breakthrough nausea/vomiting Senna/Docusate Sodium (Senokot-S, Clotilde-Colace) 2 tablet PO BID PRN PRN PRN Reason: Constipation Sodium Chloride () 5 - 15 ml IV UD PRN PRN Reason: SALINE FLUSH Last Admin: 11/07/18 23:15 Dose: 10 ml Zolpidem Tartrate (Ambien (Generic)) 5 mg PO QHS PRN PRN PRN Reason: INSOMNIA Medical Necessity - Tobacco Use Smoking Status: Current every day smoker Assessment/Plan All Active Problems (Last Reviewed 08/21/18 @ 09:06 by Dee Richardson MD) Gastroenteritis (Acute) Rectal prolapse (Acute) Urinary tract infection (Acute) HABP (hospital-acquired bacterial pneumonia) (Ruled-out) 1. Slow transit constipation with overflow diarrhea patient came in with diarrhea which has now resolved. However, she feels very constipated abdominal xray showed mild distention of bowel loops with ileus or enteritis will give soap suds enema to help relieve constipation dulcolax for constipation 2. Rectal prolapse: had rectral prolapse that she had minimal. General surgery consulted. Prolapse successfully reduced. To have Gastrografin enema to assess for intussusception. 3. History of seizure disorder: on tirleptal 600mg bid 4. Chronic hypoxic respiratory failure due to COPD: stable. on 4L of oxygen baseline 5. COPD: on fluticasone Vilanterol and breathing treatments. 6. Hypokalemia: Resolved. Potassium was 3 on admission and is now 4.1. 7. Hypothyroidism: On Synthroid. 8. Hyperlipidemia: On pravastatin. 9. Restless leg syndrome: On Requip 2 mg daily. 10. Depression: On mirtazapine DVT prophylaxis: SCDs Code Visit OBSV E&M: 33205 Subsequent observation care L3
--- NOTE | 2018-11-08 13:54 | PN_ITS ---
Patient Problems: Active and Suspected Problems (Last Reviewed 08/21/18 @ 09:06 by Dee Richardson MD) Gastroenteritis (Acute) Rectal prolapse (Acute) Subjective: Patient seen and examined. He was admitted with a complaint of diarrhea and was managed for gastroenteritis. Patient says diarrhea has stopped but she was just very constipated. Review of systems otherwise negative. Labs and vitals reviewed. Vitals/I&O's: Vital Signs Temp Pulse Resp BP Pulse Ox 98.6 F 69 18 115/61 95 11/08/18 08:34 11/08/18 08:34 11/08/18 08:34 11/08/18 08:34 11/08/18 08:34 Oxygen Flow Rate (L/min) 3 Oxygen Delivery Method Room Air Weight: 154 lb 12.232 oz Body Mass Index (BMI) 25.7 Intake and Output for Last 24 Hours 11/06/18 11/07/18 11/08/18 23:59 23:59 23:59 Intake Total 2063 / 2063 Output Total 200 / 200 Balance 1863 / 1863 General: Alert, Oriented x3, Cooperative, No apparent distress HEENT: Atraumatic, PERRLA, EOMI, Normocephalic Oral: Moist Mucosa Neck: Supple, No JVD, Negative Carotid Bruits Lungs: Clear to auscultation, Normal air movement, No rhonchi, No wheeze, No rales, - - on 3L of oxygen, which is chronic Cardiovascular: Regular rate, Regular Rhythm, Normal S1, Normal S2, No murmurs Abdomen: Bowel Sounds Present, Soft, Non Tender, Non-Distended, No Hepato- splenomegaly, Passing Flatus Extremities: No clubbing, No cyanosis, No edema, Capillary Refill Less than 3 Seconds Skin: No rashes, No breakdown Musculoskeletal: No Tenderness to Palpation of Joints or Extremities Lymphatic: No Cervical, Supraclavicular, or Inguinal Adenopathy Neurological: Cranial nerves II-XII grossly intact, Neuro grossly intact, Motor Exam 5/5 strength throughout Psych/Mental Status: Normal Affect, Appropriate, Alert and oriented to time, place, person, mood and affect Microbiology Past 72 Hours 11/08/18 11:20 Stool Stool Lactoferrin - Final 11/08/18 11:20 Stool Stool Occult Blood (JASWANT) - Final Laboratory Results 11/07/18 15:30: WBC 11.7 H, RBC 4.86, Hgb 15.0, Hct 44.8, MCV 92.2, MCH 30.9, MCHC 33.5, RDW 13.7, RDW Differential 46.2 H, Plt Count 290, MPV 9.4, Immature Gran % (Auto) 0.300, Neut % (Auto) 80.5 H, Lymph % (Auto) 12.3 L, [place] % (Auto) 6.8, Eos % (Auto) 0.0, Baso % (Auto) 0.1, Absolute Neuts (auto) 9.4 H, Absolute Lymphs (auto) 1.44, Total Counted Not Reportable 11/07/18 15:30: Sodium 138, Potassium 3.0 L, Chloride 100, Carbon Dioxide 28.0, Anion Gap 10, BUN 12, Creatinine 0.75, Estim Creat Clear Calc 47.78, Est GFR (MDRD) Af Amer 98, Est GFR (MDRD) Non-Af 81, BUN/Creatinine Ratio 15.9, Glucose 169 H, Calcium 8.8, Total Bilirubin 0.50, Direct Bilirubin 0.15, AST 32, ALT 22, Alkaline Phosphatase 72, Lactate Dehydrogenase 307 H, Total Protein 8.3 H, Albumin 3.7, Globulin 4.6 H, Lipase 81 11/07/18 15:30: Lactic Acid 2.6 H 11/07/18 15:30: GGT 64 H 11/07/18 15:30: Phenytoin < 0.4 L 11/07/18 15:30: Phosphorus 2.4 L, Magnesium 2.2 11/07/18 16:55: Urine Color Yellow, Urine Clarity Clear, Urine pH 7.0, Ur Specific [place] 1.010, Urine Protein 30 H, Urine Glucose (UA) Normal, Urine Ketones 150 H, Urine Occult Blood 25 H, Urine Nitrite Negative, Urine Bilirubin Negative, Urine Urobilinogen Normal, Ur Leukocyte Esterase Negative, Urine RBC 0-5 SEEN, Urine WBC 0 SEEN, Ur Squamous Epith Cells 0 SEEN, Urine Bacteria 0 SEEN, Urine Mucus 0 SEEN, Urine Yeast RARE 11/07/18 16:55: Urine Opiates Screen NEGATIVE, Urine Methadone Screen NEGATIVE, Ur Barbiturates Screen POSITIVE H, Ur Phencyclidine Scrn NEGATIVE, Ur Amphetamines Screen NEGATIVE, U Methamphetamin-MDMA NEGATIVE, U Benzodiazepines Scrn NEGATIVE, Urine Cocaine Screen NEGATIVE, U Cannabinoids Screen NEGATIVE, Ur Drug Screen Comment 11/07/18 23:22: POC Glucose 138 H 11/08/18 00:00: Lactic Acid 1.3 11/08/18 05:44: Sodium 142, Potassium 4.1, Chloride 109 H, Carbon Dioxide 25.0, Anion Gap 8, BUN 15, Creatinine 0.54 L, Estim Creat Clear Calc 45.85, Est GFR (MDRD) Af Amer 143, Est GFR (MDRD) Non-Af 118, BUN/Creatinine Ratio 27.7 H, Glucose 132 H, Calcium 7.8 L, TSH 0.64, Free T4 0.98 11/08/18 05:44: WBC 13.0 H, RBC 4.34, Hgb 13.1, Hct 40.4, MCV 93.1, MCH 30.2, MCHC 32.4, RDW 13.7, RDW Differential 45.3 H, Plt Count 252, MPV 9.2, Immature Gran % (Auto) 0.300, Neut % (Auto) 70.9 H, Lymph % (Auto) 17.9 L, [place] % (Auto) 10.7 H, Eos % (Auto) 0.0, Baso % (Auto) 0.2, Absolute Neuts (auto) 9.2 H, Absolute Lymphs (auto) 2.32, Total Counted Not Reportable 11/08/18 06:56: POC Glucose 126 H Diagnostic Data Chest X-Ray 11/07/18 15:33 IMPRESSION: Stable borderline cardiomegaly with hyperexpansion. No acute finding. Electronically Signed: Maximino Whitney MD at 15:58 EDT , Service support , Abdomen X-Ray 11/07/18 21:25 IMPRESSION: There is mild distention of bowel loops with ileus or enteritis Electronically Signed: Ang Mazariegos MD at 22:38 EDT , Service support , Current Medications Acetaminophen (Tylenol) 650 mg PO Q6H PRN PRN PRN Reason: Mild Pain (1-3)/Temp > 100.7 F Last Admin: 11/08/18 08:36 Dose: 650 mg Bisacodyl (Dulcolax) 10 mg RECTAL DAILY PRN PRN Reason: constipation Dextrose (D50w Syringe) 0 gm IV X1 PRN; Protocol PRN Reason: Hypoglycemia Glucagon () 1 mg IM .X1 PRN PRN Reason: Hypoglycemia Lactated Ringer's () 1,000 mls @ 100 mls/hr IV .Q10H CHEN Last Admin: 11/08/18 11:18 Dose: 100 mls/hr Morphine Sulfate () 2 mg IV Q3H PRN PRN PRN Reason: Severe pain (7-10/10) Last Admin: 11/08/18 03:43 Dose: 2 mg Nutritional Formula (Lactose Free) (Ensure Enlive) 120 ml PO 4X/DAY CHEN Ondansetron HCl (Zofran) 4 mg IV Q8H PRN PRN PRN Reason: NAUSEA/VOMITING Promethazine HCl (Phenergan) 25 mg IV Q6H PRN PRN PRN Reason: Breakthrough nausea/vomiting Senna/Docusate Sodium (Senokot-S, Clotilde-Colace) 2 tablet PO BID PRN PRN PRN Reason: Constipation Sodium Chloride () 5 - 15 ml IV UD PRN PRN Reason: SALINE FLUSH Last Admin: 11/07/18 23:15 Dose: 10 ml Zolpidem Tartrate (Ambien (Generic)) 5 mg PO QHS PRN PRN PRN Reason: INSOMNIA Medical Necessity - Tobacco Use Smoking Status: Current every day smoker Assessment/Plan All Active Problems (Last Reviewed 08/21/18 @ 09:06 by Dee Richardson MD) Gastroenteritis (Acute) Rectal prolapse (Acute) Urinary tract infection (Acute) HABP (hospital-acquired bacterial pneumonia) (Ruled-out) 1. Slow transit constipation with overflow diarrhea * patient came in with diarrhea which has now resolved. However, she feels very constipated * abdominal xray showed mild distention of bowel loops with ileus or enteritis * will give soap suds enema to help relieve constipation * dulcolax for constipation * 2. Rectal prolapse: * had rectral prolapse that she had minimal. General surgery consulted. * Prolapse successfully reduced. * To have Gastrografin enema to assess for intussusception. * 3. History of seizure disorder: on tirleptal 600mg bid 4. Chronic hypoxic respiratory failure due to COPD: stable. on 4L of oxygen baseline 5. COPD: on fluticasone Vilanterol and breathing treatments. 6. Hypokalemia: Resolved. Potassium was 3 on admission and is now 4.1. 7. Hypothyroidism: On Synthroid. 8. Hyperlipidemia: On pravastatin. 9. Restless leg syndrome: On Requip 2 mg daily. 10. Depression: On mirtazapine DVT prophylaxis: SCDs Code Visit OBSV E&M: 00894 Subsequent observation care L3
--- NOTE | 2018-11-08 14:01 | CASEMGMT ---
Addendum entered by Khurram Lipscomb 11/08/18 14:17: Son aware that pt's wishes are to go to [facility] @ discharge. Original Note: ERIC BELLE NOTE: Reviewed WILDE form with pt. Son, Yaakov/CATRACHO, @ bedside. Questions answered. WILDE form signed by pt, copy made and placed in chart, and original given to pt. Mariam LARSON RN CM
[2018-11-08 15:05] VITALS: BP 139/72; PULSE 86; RESP 18; TEMP 36.9; O2SAT 95
[2018-11-08 15:08] VITALS: BP 139/72; PULSE 86; RESP 18; TEMP 36.8; O2SAT 95
[2018-11-08 20:02] VITALS: BP 155/95; PULSE 95; RESP 18; TEMP 37.8; O2SAT 99
[2018-11-08] MEDS: Fleet Enema 1 ML RECTAL (20:14)
[2018-11-08] MEDS: Zolpidem Tartrate 5 MG Tablet PO (21:26)
[2018-11-09] VITALS (11 sets, daily range): BP systolic 121–137; BP diastolic 71–105; PULSE 78–99; RESP 16–18; TEMP 36.8–37.6; O2SAT 98–100
[2018-11-09] MEDS: Morphine 2 MG/ML Syringe IV ×4 (01:05→13:55)
[2018-11-09] MEDS: Lactated Ringers 1,000 ML 100 ML IV ×2 (01:05→13:56)
[2018-11-09] MEDS: Fleet Enema 1 ML RECTAL (04:13)
--- NOTE | 2018-11-09 05:44 | NURSING ---
Called report to [facility] in Endo for Pt's Flexible Sigmoidoscopy with possible biopsies to be performed by Dr. Wright @ [id number] on 11/09/18.
[2018-11-09 05:49] LABS: Absolute Lymphocyte Count 1.91 X10^3/ul (0.83-4.51); Absolute Neutrophil Count 7.7 X10^3/uL (2.0-7.7); Basophil# 0.01 X10^3/uL; Basophil% 0.1 % (0-1); Eosinophils% 0.9 % (0-5); Hematocrit 36.2 % (37-47); Hemoglobin 11.7 g/dl (12.0-15.0); Lymphocyte # 1.91 X10^3/ul (4.0); Lymphocyte % 17.2 % (19-41); Mean Corp Hgb Conc 32.3 g/gl (32-36); Mean Corpuscular Hgb 30.2 pg (27.0-32.0); Mean Corpuscular Volume 93.3 fL (81-99); Mean Platelet Vol. 9.2 fl (6.2-12.0); Monocyte# 1.35 X10^3/uL; Monocyte% 12.2 % (0-10); Neutrophil % 69.5 % (47-70); Platelet Count 209 K/mm3 (150-450); RBC Distribution Width CV 13.6 % (11.6-14.6); Red Blood Count 3.88 M/mm3 (4.2-5.4); White Blood Count 11.1 K/mm3 (4.4-11.0)
[2018-11-09 05:50] LABS: POSITIVE COUNT NO; POSITIVE DIFFERENTIAL NO; POSITIVE MORPHOLOGY NO
[2018-11-09 05:58] LABS: Anion Gap 5 (5-15); BUN 10 mg/dL (7-18); BUN/Creat Ratio 22.3 RATIO (10-20); Calcium,Total 7.4 mg/dL (8.5-10.1); Chloride 110 mmol/L (98-107); Creatinine, Serum 0.45 mg/dL (0.55-1.02); EST Glomerular Filtration Rate 148 mL/min (>60); Est Glom Filt Rate - Afr Amer 179 mL/min (>60); Estimated Creatinine Clearance 45.85 ml/min; Glucose 130 mg/dL (74-106); Potassium 2.9 mmol/L (3.5-5.1); Sodium Level 144 mmol/L (136-145)
--- NOTE | 2018-11-09 06:58 | OP.ENDO_ITS ---
11/09/2018 Patel Veliz MD [address] [place] [address] Re : Flexible Sigmoidoscopy procedure for Bela Sandoval Dear Dr. Veliz This procedure was performed on October. My impressions and recommendations are as follows: Impressions : - Internal hemorrhoids that do not return to the anal canal, thus continuously prolapsed (Grade IV) found on digital rectal exam. Possibly some lax rectal tissue at the very low rectum, no acute abnormality or congestion identified - Diverticulosis in the sigmoid colon. - No specimens collected. Rectal prolapse not currently identified on clinical exam yesterday or today Recommendations : - Resume previous diet. My findings are described in the full procedure note, which is enclosed. If I can be of further assistance, please feel free to contact me at Doctor phone number(s): Work: . Sincerely, Sinan Wright MD 11/09/2018 6:57:47 AM This report has been signed electronically.
--- NOTE | 2018-11-09 06:58 | PCM.PN.BLA ---
Progress Note Successful flexible sigmoidoscopy with very minimal sedation. Grade 4 internal and external hemorrhoids. No thrombosis or bleeding. No rectal prolapse identified yesterday on clinical examination nor today on clinical examination. Sigmoid diverticulosis identified. No acute findings. Recommendations Routine bowel regimen including daily fiber supplementation. The patient might be a future candidate for hemorrhoid surgery however her significant COPD places her at increased risk. She does not appear to be currently acutely symptomatic and no surgical treatment is recommended at this time. Sinan Wright M.D., F.A.C.S.
[2018-11-09] MEDS: Potassium Chloride 10mEq/100mL 10 MEQ/100 ML IV.SOLN. 50 MEQ IV BOLUS ×4 (08:13→14:22)
[2018-11-09] MEDS: 0.9% NaCl Peripheral Flush Adult/Peds IV ×2 (09:21→13:55)
--- NOTE | 2018-11-09 09:50 | PCM.PN.HOSP ---
Patient Problems: Active and Suspected Problems (Last Reviewed 08/21/18 @ 09:06 by Dee Richardson MD) Gastroenteritis (Acute) Rectal prolapse (Acute) Subjective: Patient seen and examined. She has no complaints. General surgery reviewed her yesterday on account of rectal prolapse. This was successfully reduced. She had a barium enema which was incomplete. She had a flexible sigmoidoscopy today which was negative. Labs and vitals reviewed. Review of systems otherwise negative. Vitals/I&O's: Vital Signs Temp Pulse Resp BP Pulse Ox 98.3 F 82 18 121/80 H 98 11/09/18 08:16 11/09/18 08:16 11/09/18 08:16 11/09/18 08:16 11/09/18 08:16 Oxygen Flow Rate (L/min) 3 Oxygen Delivery Method Nasal Cannula Weight: 154 lb 12.232 oz Body Mass Index (BMI) 25.7 Intake and Output for Last 24 Hours 11/07/18 11/08/18 11/09/18 23:59 23:59 23:59 Intake Total 2652 / 2652 1520 / 1520 Output Total 200 / 200 Balance 2452 / 2452 1520 / 1520 General: Alert, Oriented x3, Cooperative, No apparent distress HEENT: Atraumatic, PERRLA, EOMI, Normocephalic Oral: Moist Mucosa Neck: Supple, No JVD, Negative Carotid Bruits Lungs: Clear to auscultation, Normal air movement, No rhonchi, No wheeze, No rales, - - on 3L of oxygen, which is chronic Cardiovascular: Regular rate, Regular Rhythm, Normal S1, Normal S2, No murmurs Abdomen: Bowel Sounds Present, Soft, Non Tender, Non-Distended, No Hepato-splenomegaly, Passing Flatus Extremities: No clubbing, No cyanosis, No edema, Capillary Refill Less than 3 Seconds Skin: No rashes, No breakdown Musculoskeletal: No Tenderness to Palpation of Joints or Extremities Lymphatic: No Cervical, Supraclavicular, or Inguinal Adenopathy Neurological: Cranial nerves II-XII grossly intact, Neuro grossly intact, Motor Exam 5/5 strength throughout Psych/Mental Status: Normal Affect, Appropriate, Alert and oriented to time, place, person, mood and affect Microbiology Past 72 Hours 11/08/18 11:20 Stool Enteric Bacteriology - Final 11/08/18 11:20 Stool Stool Lactoferrin - Final 11/08/18 11:20 Stool Stool Occult Blood (JASWANT) - Final Laboratory Results 11/09/18 05:22: Sodium 144, Potassium 2.9 L, Chloride 110 H, Carbon Dioxide 29.0, Anion Gap 5, BUN 10, Creatinine 0.45 L, Estim Creat Clear Calc 45.85, Est GFR (MDRD) Af Amer 179, Est GFR (MDRD) Non-Af 148, BUN/Creatinine Ratio 22.3 H, Glucose 130 H, Calcium 7.4 L 11/09/18 05:22: WBC 11.1 H, RBC 3.88 L, Hgb 11.7 L, Hct 36.2 L, MCV 93.3, MCH 30.2, MCHC 32.3, RDW 13.6, RDW Differential 45.0 H, Plt Count 209, MPV 9.2, Immature Gran % (Auto) 0.100, Neut % (Auto) 69.5, Lymph % (Auto) 17.2 L, [place] % (Auto) 12.2 H, Eos % (Auto) 0.9, Baso % (Auto) 0.1, Absolute Neuts (auto) 7.7, Absolute Lymphs (auto) 1.91, Total Counted Not Reportable 11/09/18 05:22: Magnesium 2.0 Current Medications Acetaminophen (Tylenol) 650 mg PO Q6H PRN PRN PRN Reason: Mild Pain (1-3)/Temp > 100.7 F Last Admin: 11/08/18 08:36 Dose: 650 mg Bisacodyl (Dulcolax) 10 mg RECTAL DAILY PRN PRN Reason: constipation Dextrose (D50w Syringe) 0 gm IV X1 PRN; Protocol PRN Reason: Hypoglycemia Glucagon () 1 mg IM .X1 PRN PRN Reason: Hypoglycemia Lactated Ringer's () 1,000 mls @ 100 mls/hr IV .Q10H CHEN Last Admin: 11/09/18 01:05 Dose: 100 mls/hr Potassium Chloride () 10 meq in 100 mls @ 100 mls/hr IV BOLUS Q1H CHEN Stop: 11/09/18 11:59 Last Admin: 11/09/18 08:13 Dose: 50 mls/hr Morphine Sulfate () 2 mg IV Q3H PRN PRN PRN Reason: Severe pain (7-10/10) Last Admin: 11/09/18 09:20 Dose: 2 mg Nutritional Formula (Lactose Free) (Ensure Enlive) 120 ml PO 4X/DAY [facility] Last Admin: 11/09/18 09:25 Dose: 120 ml Ondansetron HCl (Zofran) 4 mg IV Q8H PRN PRN PRN Reason: NAUSEA/VOMITING Promethazine HCl (Phenergan) 25 mg IV Q6H PRN PRN PRN Reason: Breakthrough nausea/vomiting Psyllium Hydrophilic Mucilloid (Metamucil) 1 packet PO BID [facility] Last Admin: 11/09/18 09:24 Dose: Not Given Senna/Docusate Sodium (Senokot-S, Clotilde-Colace) 2 tablet PO BID PRN PRN PRN Reason: Constipation Sodium Chloride () 5 - 15 ml IV UD PRN PRN Reason: SALINE FLUSH Last Admin: 11/09/18 09:21 Dose: 10 ml Zolpidem Tartrate (Ambien (Generic)) 5 mg PO QHS PRN PRN PRN Reason: INSOMNIA Last Admin: 11/08/18 21:26 Dose: 5 mg Medical Necessity - Tobacco Use Smoking Status: Current every day smoker Assessment/Plan All Active Problems (Last Reviewed 08/21/18 @ 09:06 by Dee Richardson MD) Gastroenteritis (Acute) Rectal prolapse (Acute) Urinary tract infection (Acute) HABP (hospital-acquired bacterial pneumonia) (Ruled-out) 1. Slow transit constipation with overflow diarrhea resovled. Had soapsuds enema which helped with bowel movements on dulcolax 2. Rectal prolapse: had rectal prolapse which was successfully reduced by general surgery had flexible sigmoidoscoy with showed grade 4 internal and external hemorrhoids and sigmoid diverticulosis to have daily fiber supplementation and follow up with general surgery on discharge To have Gastrografin enema to assess for intussusception. 3. History of seizure disorder: on trileptal 600mg bid 4. Chronic hypoxic respiratory failure due to COPD: stable. on 4L of oxygen baseline 5. COPD: on fluticasone Vilanterol and breathing treatments. 6. Hypokalemia: potassium is 2.9 today. Will replace and monitor. Mg is 2. 7. Hypothyroidism: On Synthroid. 8. Hyperlipidemia: On pravastatin. 9. Restless leg syndrome: On Requip 2 mg daily. 10. Depression: On mirtazapine DVT prophylaxis: SCDs Disposition: awaiting DC to [facility] Code Visit Inpatient E&M: 89497 Subs Hosp L2
--- NOTE | 2018-11-09 09:54 | PN_ITS ---
Patient Problems: Active and Suspected Problems (Last Reviewed 08/21/18 @ 09:06 by Dee Richardson MD) Gastroenteritis (Acute) Rectal prolapse (Acute) Subjective: Patient seen and examined. She has no complaints. General surgery reviewed her yesterday on account of rectal prolapse. This was successfully reduced. She had a barium enema which was incomplete. She had a flexible sigmoidoscopy today which was negative. Labs and vitals reviewed. Review of systems otherwise negative. Vitals/I&O's: Vital Signs Temp Pulse Resp BP Pulse Ox 98.3 F 82 18 121/80 H 98 11/09/18 08:16 11/09/18 08:16 11/09/18 08:16 11/09/18 08:16 11/09/18 08:16 Oxygen Flow Rate (L/min) 3 Oxygen Delivery Method Nasal Cannula Weight: 154 lb 12.232 oz Body Mass Index (BMI) 25.7 Intake and Output for Last 24 Hours 11/07/18 11/08/18 11/09/18 23:59 23:59 23:59 Intake Total 2652 / 2652 1520 / 1520 Output Total 200 / 200 Balance 2452 / 2452 1520 / 1520 General: Alert, Oriented x3, Cooperative, No apparent distress HEENT: Atraumatic, PERRLA, EOMI, Normocephalic Oral: Moist Mucosa Neck: Supple, No JVD, Negative Carotid Bruits Lungs: Clear to auscultation, Normal air movement, No rhonchi, No wheeze, No rales, - - on 3L of oxygen, which is chronic Cardiovascular: Regular rate, Regular Rhythm, Normal S1, Normal S2, No murmurs Abdomen: Bowel Sounds Present, Soft, Non Tender, Non-Distended, No Hepato- splenomegaly, Passing Flatus Extremities: No clubbing, No cyanosis, No edema, Capillary Refill Less than 3 Seconds Skin: No rashes, No breakdown Musculoskeletal: No Tenderness to Palpation of Joints or Extremities Lymphatic: No Cervical, Supraclavicular, or Inguinal Adenopathy Neurological: Cranial nerves II-XII grossly intact, Neuro grossly intact, Motor Exam 5/5 strength throughout Psych/Mental Status: Normal Affect, Appropriate, Alert and oriented to time, place, person, mood and affect Microbiology Past 72 Hours 11/08/18 11:20 Stool Enteric Bacteriology - Final 11/08/18 11:20 Stool Stool Lactoferrin - Final 11/08/18 11:20 Stool Stool Occult Blood (JASWANT) - Final Laboratory Results 11/09/18 05:22: Sodium 144, Potassium 2.9 L, Chloride 110 H, Carbon Dioxide 29.0, Anion Gap 5, BUN 10, Creatinine 0.45 L, Estim Creat Clear Calc 45.85, Est GFR (MDRD) Af Amer 179, Est GFR (MDRD) Non-Af 148, BUN/Creatinine Ratio 22.3 H, Glucose 130 H, Calcium 7.4 L 11/09/18 05:22: WBC 11.1 H, RBC 3.88 L, Hgb 11.7 L, Hct 36.2 L, MCV 93.3, MCH 30.2, MCHC 32.3, RDW 13.6, RDW Differential 45.0 H, Plt Count 209, MPV 9.2, Immature Gran % (Auto) 0.100, Neut % (Auto) 69.5, Lymph % (Auto) 17.2 L, Tucker % (Auto) 12.2 H, Eos % (Auto) 0.9, Baso % (Auto) 0.1, Absolute Neuts (auto) 7.7, Absolute Lymphs (auto) 1.91, Total Counted Not Reportable 11/09/18 05:22: Magnesium 2.0 Current Medications Acetaminophen (Tylenol) 650 mg PO Q6H PRN PRN PRN Reason: Mild Pain (1-3)/Temp > 100.7 F Last Admin: 11/08/18 08:36 Dose: 650 mg Bisacodyl (Dulcolax) 10 mg RECTAL DAILY PRN PRN Reason: constipation Dextrose (D50w Syringe) 0 gm IV X1 PRN; Protocol PRN Reason: Hypoglycemia Glucagon () 1 mg IM .X1 PRN PRN Reason: Hypoglycemia Lactated Ringer's () 1,000 mls @ 100 mls/hr IV .Q10H CHEN Last Admin: 11/09/18 01:05 Dose: 100 mls/hr Potassium Chloride () 10 meq in 100 mls @ 100 mls/hr IV BOLUS Q1H CHEN Stop: 11/09/18 11:59 Last Admin: 11/09/18 08:13 Dose: 50 mls/hr Morphine Sulfate () 2 mg IV Q3H PRN PRN PRN Reason: Severe pain (7-10/10) Last Admin: 11/09/18 09:20 Dose: 2 mg Nutritional Formula (Lactose Free) (Ensure Enlive) 120 ml PO 4X/DAY [facility] Last Admin: 11/09/18 09:25 Dose: 120 ml Ondansetron HCl (Zofran) 4 mg IV Q8H PRN PRN PRN Reason: NAUSEA/VOMITING Promethazine HCl (Phenergan) 25 mg IV Q6H PRN PRN PRN Reason: Breakthrough nausea/vomiting Psyllium Hydrophilic Mucilloid (Metamucil) 1 packet PO BID [facility] Last Admin: 11/09/18 09:24 Dose: Not Given Senna/Docusate Sodium (Senokot-S, Clotilde-Colace) 2 tablet PO BID PRN PRN PRN Reason: Constipation Sodium Chloride () 5 - 15 ml IV UD PRN PRN Reason: SALINE FLUSH Last Admin: 11/09/18 09:21 Dose: 10 ml Zolpidem Tartrate (Ambien (Generic)) 5 mg PO QHS PRN PRN PRN Reason: INSOMNIA Last Admin: 11/08/18 21:26 Dose: 5 mg Medical Necessity - Tobacco Use Smoking Status: Current every day smoker Assessment/Plan All Active Problems (Last Reviewed 08/21/18 @ 09:06 by Dee Richardson MD) Gastroenteritis (Acute) Rectal prolapse (Acute) Urinary tract infection (Acute) HABP (hospital-acquired bacterial pneumonia) (Ruled-out) 1. Slow transit constipation with overflow diarrhea * resovled. Had soapsuds enema which helped with bowel movements * on dulcolax * * 2. Rectal prolapse: * had rectal prolapse which was successfully reduced by general surgery * had flexible sigmoidoscoy with showed grade 4 internal and external hemorrhoids and sigmoid diverticulosis * to have daily fiber supplementation and follow up with general surgery on discharge * To have Gastrografin enema to assess for intussusception. * 3. History of seizure disorder: on trileptal 600mg bid 4. Chronic hypoxic respiratory failure due to COPD: stable. on 4L of oxygen baseline 5. COPD: on fluticasone Vilanterol and breathing treatments. 6. Hypokalemia: potassium is 2.9 today. Will replace and monitor. Mg is 2. 7. Hypothyroidism: On Synthroid. 8. Hyperlipidemia: On pravastatin. 9. Restless leg syndrome: On Requip 2 mg daily. 10. Depression: On mirtazapine DVT prophylaxis: SCDs Disposition: awaiting DC to [facility] Code Visit Inpatient E&M: 51742 Subs Hosp L2
--- NOTE | 2018-11-09 11:10 | CASEMGMT ---
Social Work Note GRAHAM placed a call to Rebeca at [facility]. Rebeca confirms that she is able to accept pt and has submitted for pre-cert. GRAHAM faxed updated clinicals to [facility]. Plan: [facility] pending pre-cert Cheyanne Cee ENDBANDER, TERRITORY MANAGER GENERAL SALES
--- NOTE | 2018-11-09 11:44 | PCM.TXEXTCAR ---
- Diet 11/09/18 07:00 Diet: Regular Diet Is pt able to select menu?: Yes - Routine Orders/Code Status Enema Type: Fleetz Enema Frequency: Daily PRN Suppository Type: Dulcolax 10mg Suppository Frequency: Daily PRN O2 Frequency: Continuous Keep PO Greater than or Equal to (%): 90 Routine Lab Work: BMP - in 2 days to check potassium level - Therapies Weight Bearing: Weight bearing as tolerated Physical Therapy: Eval and Treat Occupational Therapy: Eval and Treat - Allergies/Procedures Done in Hospital Allergies/Adverse Reactions: Allergies Penicillins Allergy (Verified 11/07/18 15:12) Anaphylaxis codeine Adverse Reaction (Verified 11/07/18 15:12) Nausea Procedures: - - flexible sigmoidoscopy - Type of Care/Length of Stay Estimated LOS: Convalescent Care Less Than 30 days Type of Care Needed: Skilled Rehab Potential: Fair Prognosis: Fair - Additional Orders/Day of Discharge Day of Discharge: 11/09/18 - Dietary and Speech Recommendations Dietitian Recommendations/Changes: Rec diet change to regular. Will switch ONS from Glucerna TID to Ensure Enlive 120 mL 4x/day. - Follow Up Care Primary Care Physician: Patel Veliz Chi, MD [Primary Care Provider] - Please follow up with your Primary Care Physician in: one week Please Follow Up With: Sinan Wright MD When: 2-3 weeks
--- NOTE | 2018-11-09 13:44 | CASEMGMT ---
Social Work Note GRAHAM received call from Rebeca at [facility] stating pre-cert has been obtained and pt is able to discharge today. GRAHAM met with pt, introduced self and role at [facility]. Pt is alert and orientated x3. SW informed pt that [facility] is able to accept pt and pre-cert has been obtained. Pt states understanding and is still agreeable to going to [facility]. Pt gave this worker permission to call her son Yaakov to update him. SW placed a call to pt's son Yaakov and updated him on acceptance and approval to go to [facility] today. Yaakov states understanding. Pt is needing Potassium and won't be done with her potassium until later this evening. Green sheet on chart and transportation form. Discharge paperwork will need to be faxed once completed. Plan: Discharge to [facility] today Cheyanne Cee PHOTOGRAMMETRY [employer]PLANE [employer]OT, REFURBISH TECHNICIAN
--- NOTE | 2018-11-09 14:52 | PCM.DC.SUM ---
Discharge Date and Diagnosis - Problem List Patient Problems: Active and Suspected Problems (Last Reviewed 08/21/18 @ 09:06 by Dee Richardson MD) Gastroenteritis (Acute) Rectal prolapse (Acute) Date of Admission: 11/07/18 Date of Discharge: 11/09/18 - Primary Discharge Diagnosis Active and Suspected Problems (Last Reviewed 08/21/18 @ 09:06 by Dee Richardson MD) Rectal prolapse (Acute) slow transit constipation with overflow diarrhea - Secondary Discharge Diagnosis Chronic Problems (Last Reviewed 08/21/18 @ 09:06 by Dee Richardson MD) Stress bladder incontinence, female (Chronic) Urge incontinence (Chronic) Chronic constipation (Chronic) Grade III hemorrhoids (Chronic) Hypothyroidism (Chronic) Glaucoma (Chronic) Obstipation (Chronic) Edentulous (Chronic) Chronic hypoxemic respiratory failure (Chronic) Toxic metabolic encephalopathy (Chronic) Suicide attempt (Chronic) Phenytoin toxicity (Chronic) Tobacco use (Chronic) Depression (Chronic) Insomnia (Chronic) She takes Temazepam every night for sleep, prescribed by Dr. Veliz Hypertension (Chronic) Physical debility (Chronic) Degenerative disc disease, lumbar (Chronic) Pain, chronic (Chronic) Seizure disorder (Chronic) Restless leg syndrome (Chronic) COPD (chronic obstructive pulmonary disease) (Chronic) 1 ppd now smoker 4 ppd Obstructive sleep apnea (Chronic) non-compliant with CPAP but has oxygen to wear at night Smokes with greater than 40 pack year history (Chronic) Hospital Course and Treatment Imaging Results: Diagnostic Data Chest X-Ray 11/07/18 15:33 IMPRESSION: Stable borderline cardiomegaly with hyperexpansion. No acute finding. Electronically Signed: Maximino Whitney MD at 15:58 EDT , Service support , Abdomen X-Ray 11/07/18 21:25 IMPRESSION: There is mild distention of bowel loops with ileus or enteritis Electronically Signed: Ang Mazariegos MD at 22:38 EDT , Service support , Barium Enema 11/08/18 11:48 IMPRESSION: Incomplete study. Electronically Signed: Isaias Munroe at 15:16 EDT , Service support , general surgery- Dr Wright Operations: None Procedures: - - flexible sigmoidoscopy Summary of Care Provided: The patient is a 68 year old F with a PMH as listed. She was admitted with a complaint of nause, vomiting and diarrhea for 2 days prior to admission. Patient admitted to being severely constipated prior to the symptoms. She was admitted and managed for possible gastroenteritis. However diarrhea resolved and patient remained very constipated and says she felt like there was a big block of stool inside had no wanting to come out. Diagnosis was revised to overflow incontinence due to severe constipation. Patient was given a soapsuds enema and had a large bowel movement. Symptoms subsequently resolved the patient had rectal prolapse after she had a bowel movement which was not reducible bedside. General surgery was therefore consulted and successfully reduced rectal prolapse at the bedside. Barium enema was ordered to assess for possible intussusception but the study was incomplete as patient was unable to retain the Gastrografin. Patient therefore had flexible sigmoidoscopy with minimal sedation by general surgery which showed grade 4 internal and external hemorrhoids with no thrombosis or bleeding and no rectal prolapse identified. Sigmoid diverticulosis was identified. Plan was for routine bowel regimen including daily fiber supplementation. She is to follow-up with her primary care doctor and with general surgery. Patient seen and examined prior to discharge. She had no complaints and felt well. Review of systems otherwise negative. Labs and vitals reviewed. Home medication reviewed and reconciled. o/e: Vital Signs Height 5 ft 4.96 in Weight: 154 lb 12.232 oz Weight in Pounds 154.8 lbs Pulse Ox 100 Temperature 99.5 F Pulse Rate 99 Respiratory Rate 16 Blood Pressure [Assessment 5] 126/105 Blood Pressure [Assessment 4] 129/104 Blood Pressure [Assessment 2] 132/98 Blood Pressure [Assessment 1] 130/80 Blood Pressure 137/74 Blood Pressure Position Sitting General: Alert, Oriented x3, Cooperative, No apparent distress HEENT: Atraumatic, PERRLA, EOMI, Normocephalic Oral: Moist Mucosa Neck: Supple, No JVD, Negative Carotid Bruits Lungs: Clear to auscultation, Normal air movement, No rhonchi, No wheeze, No rales, - - on 3L of oxygen, which is chronic Cardiovascular: Regular rate, Regular Rhythm, Normal S1, Normal S2, No murmurs Abdomen: Bowel Sounds Present, Soft, Non Tender, Non-Distended, No Hepato-splenomegaly, Passing Flatus Extremities: No clubbing, No cyanosis, No edema, Capillary Refill Less than 3 Seconds Skin: No rashes, No breakdown Musculoskeletal: No Tenderness to Palpation of Joints or Extremities Lymphatic: No Cervical, Supraclavicular, or Inguinal Adenopathy Neurological: Cranial nerves II-XII grossly intact, Neuro grossly intact, Motor Exam 5/5 strength throughout Psych/Mental Status: Normal Affect, Appropriate, Alert and oriented to time, place, person, mood and affect [] Patient Problems: Active and Suspected Problems (Last Reviewed 08/21/18 @ 09:06 by Dee Richardson MD) Gastroenteritis (Acute) Rectal prolapse (Acute) - Physical Exam Vital Signs Temp Pulse Resp BP Pulse Ox 99.5 F H 99 16 137/74 H 100 11/09/18 14:25 11/09/18 14:25 11/09/18 14:25 11/09/18 14:25 11/09/18 14:25 Oxygen Flow Rate (L/min) 3 Oxygen Delivery Method Nasal Cannula Weight: 154 lb 12.232 oz Body Mass Index (BMI) 25.7 Intake and Output for Last 24 Hours 11/07/18 11/08/18 11/09/18 23:59 23:59 23:59 Intake Total 2652 / 2652 3666 / 3666 Output Total 200 / 200 Balance 2452 / 2452 3666 / 3666 Microbiology Past 72 Hours 11/08/18 11:20 Enteric Bacteriology - Final Stool 11/08/18 11:20 Stool Lactoferrin - Final Stool 11/08/18 11:20 Stool Occult Blood (JASWANT) - Final Stool Laboratory Tests Past 24 Hrs 11/09/18 11/09/18 11/09/18 05:22 05:22 05:22 WBC 11.1 H RBC 3.88 L Hgb 11.7 L Hct 36.2 L MCV 93.3 MCH 30.2 MCHC 32.3 RDW 13.6 RDW Differential 45.0 H Plt Count 209 MPV 9.2 Immature Gran % (Auto) 0.100 Neut % (Auto) 69.5 Lymph % (Auto) 17.2 L [place] % (Auto) 12.2 H Eos % (Auto) 0.9 Baso % (Auto) 0.1 Absolute Neuts (auto) 7.7 Absolute Lymphs (auto) 1.91 Total Counted Not Reportable Sodium 144 Potassium 2.9 L Chloride 110 H Carbon Dioxide 29.0 Anion Gap 5 BUN 10 Creatinine 0.45 L Estim Creat Clear Calc 45.85 Est GFR (MDRD) Af Amer 179 Est GFR (MDRD) Non-Af 148 BUN/Creatinine Ratio 22.3 H Glucose 130 H Calcium 7.4 L Magnesium 2.0 Home Medications: Medications to take at Discharge Alendronate Sodium [Fosamax] 70 mg PO FR 05/12/16 Etodolac 400 mg PO BID 05/12/16 Temazepam [Restoril] 30 mg PO QHS 06/24/17 Mirtazapine [Remeron] 15 mg PO QHS PRN 07/03/17 Latanoprost 0.005% [Xalatan Opthalmic] 1 drp EACH EYE QHS 07/04/17 Methadone HCl 10 mg PO TID 09/04/17 Phenobarbital 32.4 mg PO BID 11/07/17 Pravastatin [Pravachol] 40 mg PO QHS 11/07/17 Sennosides/Docusate Sodium [Senna-Docusate Sodium Tablet] 2 each PO BID 04/03/18 Ranitidine HCl [Zantac] 300 mg PO DAILY 06/13/18 Risperidone 0.25 mg PO DAILY 06/13/18 Albuterol Sulfate [Ventolin Hfa] 1 - 2 puff INHALATION Q6H PRN PRN 07/14/18 Multivitamin with Minerals [Multiple Vitamin] 1 tab PO DAILY 07/14/18 Ergocalciferol [Vitamin D] 50,000 units PO MO 08/15/18 Fluticasone/Vilanterol [Breo Ellipta 100-25 Mcg INH] 2 puff INHALATION BID 08/15/18 Hydrocortisone 1% Crm [Hytone] 1 applicatio TOPICAL DAILY PRN PRN 08/15/18 Ipratropium/Albuterol Sulfate [Duoneb] 3 ml INHALATION BID 08/15/18 Metoprolol Tartrate 25 mg PO BID 08/15/18 Nicotine [Nicoderm Cq] 21 mg TOPICAL DAILY 08/15/18 Nystatin 1 applicatio TOPICAL PRN PRN 08/15/18 Potassium Chloride [K-Dur] 10 meq PO DAILY 08/15/18 Oxcarbazepine [Trileptal] 600 mg PO BID #60 tablet 08/18/18 Aspirin [Aspirin, Baby] 81 mg PO DAILY@0800 11/07/18 Duloxetine Hcl [Cymbalta] 20 mg PO DAILY 11/07/18 Levothyroxine [Synthroid] 50 mcg PO DAILY@0600 11/07/18 Mirabegron [Myrbetriq] 50 mg PO DAILY 11/07/18 Oxcarbazepine [Trileptal] 150 mg PO BID 11/07/18 Polyethylene Glycol 3350 [Miralax] 17 gm PO BID 11/07/18 Ropinirole HCl [Requip] 2 mg PO DAILY 11/07/18 Calcium Carbonate [Tums] 500 mg PO BIDCM #20 tab 11/09/18 Potassium Chloride [K-Dur] 20 meq PO BID #30 tab 11/09/18 Following Prescrptions Were Given to Patient: Calcium Carbonate [Tums] 500 mg PO BIDCM #20 tab Potassium Chloride [K-Dur] 20 meq PO BID #30 tab Primary Care Physician: Patel Veliz Chi, MD [Primary Care Provider] - Please follow up with your Primary Care Physician in: one week Please Follow Up With: Sinan Wright MD When: 2-3 weeks Medical Necessity - Tobacco Use Smoking Status: Current every day smoker Meaningful Use Info Meaningful Use Diagnoses (Choose all that apply): None applicable
--- NOTE | 2018-11-09 14:57 | CASEMGMT ---
Patient has a Healthcare POA and Healthcare LW on file at [facility]. Michela CARTER LAP CHECKER
[2018-11-09] MEDS: Calcium Carbonate 500 MG Tablet PO (16:01)
== END 2018-11-09 17:45 | disposition skilled nursing facility (03) ==
LOC: ED 15:39 → MS3 20:39
PROVIDERS: Surgery; Admitting Provider Internal Medicine; Emergency Provider Emergency Medicine; Family Provider Family Medicine Geriatric Medicine; PCP Family Medicine Geriatric Medicine; Referring Provider Student in an Organized Health Care Education/Training Program; Visit Provider Student in an Organized Health Care Education/Training Program
PROC: 0DJD8ZZ Inspection of Lower Intestinal Tract, Via Natural or Artificial Opening Endoscopic (ICD-10-PCS; CPT 45330; principal; 2018-11-09 06:25)
DX: K52.9 Noninfective gastroenteritis and colitis, unspecified (principal); K62.3 Rectal prolapse; N39.46 Mixed incontinence; E03.9 Hypothyroidism, unspecified; J96.11 Chronic respiratory failure with hypoxia; F32.9 Major depressive disorder, single episode, unspecified; F17.200 Nicotine dependence, unspecified, uncomplicated; E87.6 Hypokalemia; G25.81 Restless legs syndrome; K57.30 Diverticulosis of large intestine without perforation or abscess without bleeding; K64.3 Fourth degree hemorrhoids; M51.36 Other intervertebral disc degeneration, lumbar region; I10 Essential (primary) hypertension; G89.4 Chronic pain syndrome; G40.909 Epilepsy, unspecified, not intractable, without status epilepticus; G47.33 Obstructive sleep apnea (adult) (pediatric); J44.9 Chronic obstructive pulmonary disease, unspecified; Z79.899 Other long term (current) drug therapy; Z79.51 Long term (current) use of inhaled steroids; Z79.82 Long term (current) use of aspirin; Z99.81 Dependence on supplemental oxygen; Z91.19 Patient's noncompliance with other medical treatment and regimen; E78.5 Hyperlipidemia, unspecified
CPT/HCPCS: 45330; 36415; 71045; 74019; 74270; 80048; 80076; 80185; 80307; 81001; 82274; 82962; 82977; 83605; 83615; 83630; 83690; 83735; 84100; 84439; 84443; 85025; 87040; 87506; 93005; 96361; 96374; 96375; 96376; 97162; 97166; 97530; 97535; 97802; 99152; 99218; 99285; J7030; J7040; J7120; P9612; A4216; G0378; J2405

== ENCOUNTER → 2018-11-22 10:42 | Outpatient (CLI) | payer MEDICARE, SELFPAY ==
[2018-11-07 22:18] VITALS: BMI 25.7
[2018-11-22 14:59] LABS: Absolute Lymphocyte Count 2.41 X10^3/ul (0.83-4.51); Absolute Neutrophil Count 4.1 X10^3/uL (2.0-7.7); Basophil# 0.06 X10^3/uL; Basophil% 0.8 % (0-1); Eosinophil# 0.41 X10^3/uL; Eosinophils% 5.3 % (0-5); Hematocrit 39.6 % (37-47); Hemoglobin 12.8 g/dl (12.0-15.0); Lymphocyte # 2.41 X10^3/ul (4.0); Mean Corp Hgb Conc 32.3 g/gl (32-36); Mean Corpuscular Hgb 30.4 pg (27.0-32.0); Mean Corpuscular Volume 94.1 fL (81-99); Mean Platelet Vol. 9.5 fl (6.2-12.0); Monocyte# 0.78 X10^3/uL; Neutrophil % 52.6 % (47-70); Platelet Count 324 K/mm3 (150-450); RBC Distribution Width CV 13.7 % (11.6-14.6); RBC Distribution Width SD 47.1 fl (35.1-43.9); Red Blood Count 4.21 M/mm3 (4.2-5.4); White Blood Count 7.8 K/mm3 (4.4-11.0)
[2018-11-22 15:05] LABS: POSITIVE COUNT NO; POSITIVE DIFFERENTIAL NO; POSITIVE MORPHOLOGY NO
[2018-11-22 15:36] LABS: Vitamin D,25 Hydroxy 45.7 ng/mL (29.95-100.01)
[2018-11-22 15:37] LABS: ALB/GLOB Ratio 0.9 RATIO (0.9-2.4); AST(SGOT) 14 U/L (15-37); Alanine Aminotransfer ALT/SGPT 23 U/L (13-56); Albumin, Serum 3.4 g/dL (3.2-5.0); Alkaline Phosphatase 77 U/L (45-117); Anion Gap 6 (5-15); BUN 24 mg/dL (7-18); BUN/Creat Ratio 32.1 RATIO (10-20); Calcium,Total 8.6 mg/dL (8.5-10.1); Chloride 102 mmol/L (98-107); Creatinine, Serum 0.75 mg/dL (0.55-1.02); EST Glomerular Filtration Rate 82 mL/min (>60); Est Glom Filt Rate - Afr Amer 99 mL/min (>60); Globulin 3.9 g/dL (2.2-4.2); Glucose 128 mg/dL (74-106); Potassium 3.8 mmol/L (3.5-5.1); Protein, Total 7.3 g/dL (6.4-8.2); Sodium Level 137 mmol/L (136-145); Thyroid Stim Hormone (TSH) 0.71 uIU/mL (0.358-3.74)
== END ==
PROVIDERS: Family Provider Family Medicine Geriatric Medicine; PCP Family Medicine Geriatric Medicine; Visit Provider Family Medicine Geriatric Medicine
DX: E55.9 Vitamin D deficiency, unspecified (principal); I10 Essential (primary) hypertension
CPT/HCPCS: 36415; 80053; 82306; 84443; 85025

== ENCOUNTER → 2018-12-26 15:22 | Outpatient (CLI) | payer MEDICARE, SELFPAY ==
[2018-11-07 22:18] VITALS: BMI 25.7
[2018-12-26 16:56] LABS: Amphetamine Urine VISTA NEGATIVE (<1000 ng/mL); Barbiturate Urine VISTA POSITIVE (< 200 ng/mL); Benzodiazepine Urine VISTA NEGATIVE (< 200 ng/mL); Cocaine Urine VISTA NEGATIVE (< 300 ng/mL); Ecstacy Urine VISTA NEGATIVE (< 500 ng/mL); Methadone Urine VISTA NEGATIVE (< 300 ng/mL); PCP Urine VISTA NEGATIVE (< 25 ng/mL); THC Urine VISTA NEGATIVE (< 50 ng/mL); Vista UDS pH Range 6
== END ==
PROVIDERS: Family Provider Family Medicine Geriatric Medicine; PCP Family Medicine Geriatric Medicine; Referring Provider Anesthesiology Pain Medicine; Visit Provider Anesthesiology Pain Medicine
DX: F11.20 Opioid dependence, uncomplicated (principal)
CPT/HCPCS: 80307

== ENCOUNTER 2019-01-07 10:20 | Emergency (ER) | payer MEDICARE, SELFPAY ==
[2018-11-07 22:18] VITALS: BMI 25.7
[2019-01-07 10:21] VITALS: BP 134/66; PULSE 90; RESP 19; TEMP 37.5; O2SAT 96; BMI 27.9
--- NOTE | 2019-01-07 10:33 | EKG12_ITS ---
Test Reason : Blood Pressure : / mmHG Vent. Rate : 089 BPM Atrial Rate : 089 BPM P-R Int : 164 ms QRS Dur : 090 ms QT Int : 370 ms P-R-T Axes : 078 015 079 degrees QTc Int : 450 ms Normal sinus rhythm Normal ECG Confirmed by ROLAN LEACH, LEONELA ([id number]), associate editor RADHA MALIN ([id number]) on 01/09/2019 1:45:02 PM Referred By: AMLLY Confirmed By:LEONELA GONGORA MD
[2019-01-07 10:48] VITALS: PULSE 107; RESP 20
[2019-01-07] MEDS: Ipratropium/Albuterol Sulfate 3 ML AMPUL.NEB INHALATION (10:48)
[2019-01-07] MEDS: Morphine 4 MG/ML Syringe IV (11:26)
[2019-01-07] MEDS: 0.9% Normal Saline 1,000 ML 1000 ML IV (11:26)
[2019-01-07] MEDS: Ondansetron 4 MG/2 ML Vial IV ×2 (11:26→12:50)
[2019-01-07 11:29] VITALS: BP 198/99; PULSE 97; RESP 15; O2SAT 96
--- NOTE | 2019-01-07 11:31 | ED.RN ---
Pt's son POA called to notify him of his mother's arrival.
--- NOTE | 2019-01-07 11:33 | NURSING ---
lab called to obtain bloodwork on pt as EMT not able to draw blood off iv start
--- NOTE | 2019-01-07 11:45 | NURSING ---
missile and missile checkout technician in room
[2019-01-07 11:59] LABS: Absolute Lymphocyte Count 1.51 X10^3/uL (0.83-4.51); Absolute Neutrophil Count 9.1 X10^3/uL (2.0-7.7); Basophil# 0.04 X10^3/uL; Basophil% 0.4 % (0-1); Eosinophil# 0.07 X10^3/uL; Eosinophils% 0.6 % (0-5); Hematocrit 41.3 % (37-47); Hemoglobin 13.4 g/dL (12.0-15.0); Lymphocyte # 1.51 X10^3/ul (4.0); Lymphocyte % 13.2 % (19-41); Mean Corp Hgb Conc 32.4 g/dL (32-36); Mean Corpuscular Hgb 30.9 pg (27.0-32.0); Mean Corpuscular Volume 95.4 fL (81-99); Mean Platelet Vol. 8.8 fl (6.2-12.0); Monocyte# 0.61 X10^3/uL; Monocyte% 5.4 % (0-10); NRBC Flagged by Analyzer 0 % (0-5); Neutrophil # 9.13 X10^3/uL (2.7-7.7); Platelet Count 246 K/mm3 (150-450); RBC Distribution Width CV 13.4 % (11.6-14.6); RBC Distribution Width SD 47.8 fl (35.1-43.9); Red Blood Count 4.33 M/mm3 (4.2-5.4); White Blood Count 11.4 K/mm3 (4.4-11.0)
[2019-01-07 12:16] LABS: ALB/GLOB Ratio 0.9 RATIO (0.9-2.4); AST(SGOT) 15 U/L (15-37); Alanine Aminotransfer ALT/SGPT 24 U/L (13-56); Albumin, Serum 3.4 g/dL (3.2-5.0); Alkaline Phosphatase 73 U/L (45-117); Anion Gap 10 (5-15); BUN 14 mg/dL (7-18); BUN/Creat Ratio 19.6 RATIO (10-20); Calcium,Total 8.3 mg/dL (8.5-10.1); Chloride 102 mmol/L (98-107); Creatinine, Serum 0.71 mg/dL (0.55-1.02); EST Glomerular Filtration Rate 86 mL/min (>60); Est Glom Filt Rate - Afr Amer 104 mL/min (>60); Estimated Creatinine Clearance 47.78 ml/min; Globulin 3.6 g/dL (2.2-4.2); Glucose 131 mg/dL (74-106); Lipase 58 U/L (73-393); Potassium 4.1 mmol/L (3.5-5.1); Sodium Level 140 mmol/L (136-145)
--- NOTE | 2019-01-07 12:20 | ED.VISSUMM ---
- ER Visit Summary Date of Service: 01/07/19 Chief Complaint: Vomiting and diarrhea History of Present Illness: The patient is a [address] Veliz. She has vomiting and diarrhea that began approximately 8 hours ago. States that she is vomited 3 times. No blood in her emesis. She had 14 episodes of diarrhea. She denies any blood in her stools. She reports that she has cramping diffuse abdominal pain that is 10 out of 10 severity. This is worsened by nothing and relieved by nothing. Patient denies any dysuria or frequency. She denies any fever or chills. Patient denies sick contacts. Has not been camping out of the country. No possible bad food exposure. Does not drink well water. No recent antibiotic use. Patient reports that she has chest pain that began approximately 2 hours ago while she was at rest. This did begin after vomiting. She describes it as an aching constant pain that stated 10 at worst and 6 out of 10 currently. Physical Examination: Vitals: Stable. Afebrile. General: Well-nourished and well-developed. Head: Normocephalic atraumatic. Neck: Supple, no lymphadenopathy. No JVD. Nontender. Cardiovascular: Regular rate and rhythm. No murmurs. Respiratory: No respiratory distress. Clear to auscultation bilaterally. Abdominal: Soft, mild diffuse tenderness to palpation, nondistended, normal bowel sounds. No guarding, rebound, or peritoneal signs. Back: Nontender. Extremities: Nontender, no edema. Skin: Normal color, no rash. Neurologic: Alert and oriented ?3. Cranial nerves II through XII are intact. Normal strength and sensation. Psych: Normal affect. Test Results: EKG is sinus at 89 with no acute changes. Troponin is negative. LFTs are normal. Lipase is 58. Chem-7 shows a glucose of 131 and calcium of 8.3. CBC shows a white count 11.4 with 80 segmented neutrophils and 13 lymphocytes. Emergency Department Course and Treatment: Patient was given a liter of normal saline. She was given Zofran and morphine IV. She is had no vomiting or diarrhea while here. Treatment Plan: Patient will be discharged with Zofran. Instructed to follow-up with Dr. Veliz in 1 to 2 days if not improving. Return to the emergency department for any worsening symptoms. Disposition: To home in improved and stable condition. Impression: 1. Vomiting/diarrhea. This note was generated with Oncovision dictation software. It may contain incorrect words, spelling, and punctuation that were not noted in review of the chart prior to signing ED Disposition - Plan for ED Patient: Instructions: VOMITING AND DIARRHEA, Nonspecific (Adult) Prescriptions: Ondansetron [Zofran Odt] 4 mg PO Q8H PRN PRN #10 tablet PRN Reason: Nausea Referrals: Patel Veliz Chi, MD [Primary Care Provider] - 1-2 Days if not improving
[2019-01-07 12:48] VITALS: BP 161/100; PULSE 93; RESP 16; O2SAT 97
--- NOTE | 2019-01-07 12:58 | NURSING ---
SON CALLED, MESSAGE LEFT THAT HIS MOTHER HAS BEEN DISCHARGED AND NEEDS A RIDE HOME. ATTEMPTED TO CALL CONTACT [facility]; NO ANSWER AND NOT ABLE TO LEAVE MESSAGE.
== END 2019-01-07 13:55 | disposition home or self-care (01) ==
LOC: ED 11:07
PROVIDERS: Emergency Provider Emergency Medicine; Family Provider Family Medicine Geriatric Medicine; PCP Family Medicine Geriatric Medicine
DX: R11.10 Vomiting, unspecified (principal); R19.7 Diarrhea, unspecified; R07.9 Chest pain, unspecified; J44.9 Chronic obstructive pulmonary disease, unspecified; G40.909 Epilepsy, unspecified, not intractable, without status epilepticus; Z79.82 Long term (current) use of aspirin; Z79.899 Other long term (current) drug therapy; Z72.0 Tobacco use
CPT/HCPCS: 36415; 80053; 83690; 84484; 85025; 93005; 94640; 96361; 96374; 96375; 96376; 99285; J7030; A4216; J2405

== ENCOUNTER 2019-01-08 11:51 | Observation (INO) | payer MEDICARE, SELFPAY ==
[2019-01-07 10:21] VITALS: BMI 27.9
[2019-01-08 11:52] VITALS: BP 138/91; PULSE 101; RESP 20; TEMP 37.3; O2SAT 94; BMI 26.6
--- NOTE | 2019-01-08 12:06 | EKG12_ITS ---
Test Reason : CP Blood Pressure : / mmHG Vent. Rate : 100 BPM Atrial Rate : 100 BPM P-R Int : 146 ms QRS Dur : 086 ms QT Int : 370 ms P-R-T Axes : 071 -14 077 degrees QTc Int : 477 ms Normal sinus rhythm Possible Left atrial enlargement Septal infarct , age undetermined Abnormal ECG Confirmed by ROLAN LEACH, LEONELA ([id number]), social media editor WESLY CASTAÑEDA ([id number]) on 01/10/2019 1:38:20 PM Referred By: Valentín Harry Confirmed By:LEONELA GONGORA MD
--- NOTE | 2019-01-08 12:06 | CT_ITS ---
STUDY: CT ABDOMEN AND PELVIS WITHOUT CONTRAST REASON FOR EXAM: Female, 68 years old. RADIATION DOSAGE (If Supplied By Facility): CTDIvol = ( 8.35 ) mGy, DLP = ( 409.04 ) mGycm TECHNIQUE: Transaxial images were obtained from the dome of the diaphragm to the symphysis pubis without oral contrast, and without intravenous contrast. Sagittal and coronal images were reconstructed. Individualized dose optimization techniques were used for this CT. COMPARISON: 08/12/18 FINDINGS: There are chronic interstitial fibrotic changes of the lung bases. The visualized portions of the heart are within normal limits. Normal liver. There are surgical clips in the gallbladder fossa consistent with a prior cholecystectomy. Normal spleen. Normal pancreas. Normal bilateral adrenal glands. Normal right kidney. Normal left kidney. There is a large hiatal hernia composed mostly of the fundus of the stomach. Normal small intestine. Scattered sigmoid diverticulosis. There is non-visualization of the appendix. There is diffuse atherosclerotic calcification of the abdominal aorta, without a demonstrated aneurysm. Normal inferior vena cava. Normal retroperitoneum. Normal urinary bladder. Normal visualized uterus. Endometrium cannot be accurately evaluated with CT Normal abdominal wall. There are diffuse degenerative changes of the visualized lumbar spine, and pelvis. Replaced right hip joint demonstrates anatomic alignment. CT/Abdomen/Pelvis without Cont IMPRESSION: No suspicious solid organ abnormality Large retrocardiac hiatal hernia Sigmoid diverticulosis Uterus is still present Degenerative bony changes Electronically Signed: Edison Lawrence MD at 13:44 EDT , Service support ,
--- NOTE | 2019-01-08 12:24 | ED.DCSUM_ITS ---
History of Present Illness Chief Complaint: Diarrhea Narrative: 68-year-old female was here yesterday with diarrhea. She denies recent medication changes or recent antibiotics. No unusual food intake. She was evaluated here and treated. She felt much better and was discharged home after an unremarkable work-up. Since that time, she has developed abdominal pain. She describes it as an upper abdominal pain radiating into her chest. There is no exertional component or associated shortness of breath/diaphoresis. She denies previous similar symptoms. She has had approximately 10 more episodes of diarrhea since then and is not vomiting as well multiple times this morning. Current severity is severe Past Medical History - Allergies and Home Meds Allergies/Adverse Reactions: Allergies Penicillins Allergy (Verified 01/08/19 11:54) Anaphylaxis codeine Adverse Reaction (Verified 01/08/19 11:54) Nausea Prior records reviewed: Yes Surgical History: appendectomy, cholecystectomy, - - Fractured right ankle, carpal tunnel surgery, removal of teeth, right ovariectomy and fallopian tube removal. Smoking Status: Current every day smoker - Family History Maternal Family History: Family History (Last Reviewed 06/13/18 @ 22:00 by Yunior Heaton MD) Mother Diabetes Heart disease Hypertension CAD (coronary artery disease) CVA (cerebral vascular accident) Family History: Reports: Diabetes Paternal Family History: Family History (Last Reviewed 06/13/18 @ 22:00 by Yunior Heaton MD) Mother Diabetes Heart disease Hypertension CAD (coronary artery disease) CVA (cerebral vascular accident) Family History: Reports: Cancer - colon Sibling Family History: Family History (Last Reviewed 06/13/18 @ 22:00 by Yunior Heaton MD) Mother Diabetes Heart disease Hypertension CAD (coronary artery disease) CVA (cerebral vascular accident) Family History: Reports: No pertinent history Review of Systems General: Reports: Malaise. Denies: Chills, Fever, Sweats Eyes: Denies: Visual changes - bilaterally, Diplopia ENT: Denies: Rhinorrhea, Sore throat Cardiovascular: Reports: Chest pain. Denies: Palpitations Respiratory: Denies: Dyspnea, Cough, Dyspnea on exertion Gastrointestinal: Reports: Abdominal pain, Nausea, Vomiting, Diarrhea. Denies: Melena, Hematochezia Genitourinary: Denies: Dysuria, Hematuria, Frequency Musculoskeletal: Denies: Back pain, Extremity Pain Skin: Denies: Rash, Wounds Neurological: Denies: Headache, Weakness, Numbness Physical Exam Vital Signs/Narrative: Vital Signs Temp Pulse Resp BP Pulse Ox 01/08/19 11:52 99.1 F 101 H 20 H 138/91 H 94 Inital Vital Signs reviewed: Yes General: Cachectic, Acute Distress Head: Normocephalic, Atraumatic Eyes: Perrl, EOMI ENT: No rhinorrhea, Dry mucous membranes Neck: Supple, Nontender Cardiovascular: Regular rate, Regular rhythm, No murmurs Respiratory: No distress, CTA bilaterally, Chest nontender Abdomen: Nontender, Nondistended, Normal bowel sounds, Tender Back: Nontender, Normal Inspection Extremities: Nontender, No edema Skin: Normal color, No rash Neurological: Alert, Oriented x3, Cranial nerves II-XII grossly intact, Normal Strength, Normal Sensation Psychological: Normal affect, Normal Mood Diagnostic/Tx/Re-eval - Medical Decision Making White blood cell count is nearly 16,000. Potassium is 3. Other lecture lites are fairly unremarkable. Troponin is negative. CT abdomen/pelvis unremarkable. She was given IV fluids and antiemetics. She continued to have profuse diarrhea here, at least 15 episodes, loose and watery. C. difficile studies were sent off although she denies recent antibiotic use. She is feeling quite weak and does appear dehydrated. I do feel she meets criteria for observation and rehydration. I spoke with the hospitalist and she was admitted. ED Disposition - Plan for ED Patient: Disposition: Acute Care Hospital [facility] Diagnosis: Diarrhea, Dehydration, Weakness
--- NOTE | 2019-01-08 12:39 | ED.RN ---
Notified the son of pt arrival.
[2019-01-08] MEDS: Ondansetron 4 MG/2 ML Vial IV ×2 (13:00→22:58)
[2019-01-08] MEDS: 0.9% Normal Saline 1,000 ML 1000 ML IV (13:00)
[2019-01-08 13:04] LABS: Absolute Lymphocyte Count 1.32 X10^3/uL (0.83-4.51); Basophil# 0.02 X10^3/uL; Basophil% 0.1 % (0-1); Eosinophil# 0.01 X10^3/uL; Eosinophils% 0.1 % (0-5); Hemoglobin 15.7 g/dL (12.0-15.0); Lymphocyte # 1.32 X10^3/ul (4.0); Lymphocyte % 8.5 % (19-41); Mean Corp Hgb Conc 33.4 g/dL (32-36); Mean Corpuscular Hgb 30.8 pg (27.0-32.0); Mean Corpuscular Volume 92.2 fL (81-99); Mean Platelet Vol. 9.2 fl (6.2-12.0); Monocyte# 1.16 X10^3/uL; Monocyte% 7.5 % (0-10); NRBC Flagged by Analyzer 0 % (0-5); Neutrophil # 12.98 X10^3/uL (2.7-7.7); Neutrophil % 83.4 % (47-70); Platelet Count 286 K/mm3 (150-450); RBC Distribution Width CV 13.5 % (11.6-14.6); White Blood Count 15.6 K/mm3 (4.4-11.0)
[2019-01-08 13:21] LABS: AST(SGOT) 23 U/L (15-37); Alanine Aminotransfer ALT/SGPT 25 U/L (13-56); Albumin, Serum 3.7 g/dL (3.2-5.0); Alkaline Phosphatase 84 U/L (45-117); Anion Gap 7 (5-15); BUN 18 mg/dL (7-18); BUN/Creat Ratio 25.7 RATIO (10-20); Bilirubin, Direct 0.16 mg/dL (0.00-0.30); Calcium,Total 8.9 mg/dL (8.5-10.1); Chloride 100 mmol/L (98-107); EST Glomerular Filtration Rate 88 mL/min (>60); Est Glom Filt Rate - Afr Amer 106 mL/min (>60); Estimated Creatinine Clearance 47.78 ml/min; Globulin 4.4 g/dL (2.2-4.2); Glucose 155 mg/dL (74-106); Lipase 56 U/L (73-393); Protein, Total 8.1 g/dL (6.4-8.2); Sodium Level 136 mmol/L (136-145)
[2019-01-08 13:25] LABS: Lactic Acid 1.6 mmol/L (0.4-2.0)
[2019-01-08 14:24] VITALS: BP 183/100; PULSE 98; RESP 22; O2SAT 93
[2019-01-08] MEDS: proCHLORPERazine 10 MG/2 ML Vial 5 MG IV (15:21)
--- NOTE | 2019-01-08 15:37 | NURSING ---
DR WELLS LET KNOW DR MONTOYA KNOW ABOUT PATIENT
[2019-01-08 15:39] LABS: Color, Urine Yellow (Yellow); Glucose, Dipstick 50 mg/dl (Normal); Ketone-Dipstick 50 mg/dl (Negative); Leukocyte Esterase-Dipstick Negative /ul (Negative); Nitrite-Dipstick Negative (Negative); Occult Blood-Urine 50 /ul (Negative); Protein-Dipstick 100 mg/dl (Negative); Specific Gravity, Urine 1.015 (1.002-1.030); Urine Bilirubin Dipstick Negative (Negative); Urine Clarity Clear (Clear); Urine Urobilinogen Normal (Normal); Urine pH 6.5 (5.0 - 8.0)
[2019-01-08 15:51] LABS: Bacteria RARE /hpf (None Seen); Mucous, Urine 3+ /hpf (<or=2+); Red Blood Cells-Urine 0-5 SEEN /hpf (0-5); Squamous Epithelial Cells - UA 0-5 SEEN /hpf (5-10); White Blood Cells 0-5 SEEN /hpf (0-5)
[2019-01-08 16:28] VITALS: RESP 18
--- NOTE | 2019-01-08 16:58 | PCM.HP.STD ---
Problem List (1) Stress bladder incontinence, female Status: Chronic (2) Urge incontinence Status: Chronic (3) Chronic constipation Status: Chronic (4) Gastroenteritis Status: Acute (5) Rectal prolapse Status: Acute (6) Diarrhea Status: Acute (7) Dehydration Status: Acute (8) Weakness Status: Acute (9) Grade III hemorrhoids Status: Chronic (10) Hypothyroidism Status: Chronic (11) Glaucoma Status: Chronic (12) Obstipation Status: Chronic (13) Edentulous Status: Chronic (14) Urinary tract infection Status: Acute (15) Chronic hypoxemic respiratory failure Status: Chronic (16) Toxic metabolic encephalopathy Status: Chronic (17) Suicide attempt Status: Chronic (18) Phenytoin toxicity Status: Chronic (19) HABP (hospital-acquired bacterial pneumonia) Status: Ruled-out (20) Tobacco use Status: Chronic (21) Depression Status: Chronic Qualifiers: (22) Insomnia Status: Chronic Qualifiers: Comment: She takes Temazepam every night for sleep, prescribed by Dr. Veliz (23) Hypertension Status: Chronic Qualifiers: (24) Physical debility Status: Chronic (25) Degenerative disc disease, lumbar Status: Chronic (26) Pain, chronic Status: Chronic Qualifiers: Chronic pain type: chronic pain syndrome Qualified Code(s): G89.4 - Chronic pain syndrome (27) Seizure disorder Status: Chronic (28) Restless leg syndrome Status: Chronic (29) COPD (chronic obstructive pulmonary disease) Status: Chronic Qualifiers: Comment: 1 ppd now smoker 4 ppd (30) Obstructive sleep apnea Status: Chronic Comment: non-compliant with CPAP but has oxygen to wear at night (31) Smokes with greater than 40 pack year history Status: Chronic History of Present Illness Date of Admission: 01/08/19 Chief Complaint: Diarrhea for 2 days and abdominal pain The patient is a 68 year old F with multiple comorbidities as listed above, last admission between 11/07 two 11/09 after she was admitted for similar nausea vomiting and diarrhea and then constipation with a diagnosis of rectal prolapse came to ED with nausea vomiting and diarrhea multiple times for last 2 days. Patient was seen in ER yesterday and was sent home as she did not had abdominal pain at that time. Abdominal pain started today in the morning, diffuse epigastric, stabbing in nature and localized. Patient denies fever or chills. She recalls that she was in contact with home health care record about 2 days ago who had diarrhea. She had 14 times watery stool yesterday and about 7-8 times today. Denies GI bleed. In ED, she had CT abdomen done which shows large retrocardiac hiatus hernia, composed of mainly fundus of the stomach and sigmoid diverticulosis. Normal small intestine. Patient already had appendectomy and cholecystectomy in the past. No recent blood work shows hypokalemia, potassium 3.0, leukocytosis 15.6 thousand with neutrophils 83%. Lipase is normal. LFTs normal. Past Medical History Past Medical History (Chronic Problems): Chronic Problems (Last Reviewed 08/21/18 @ 09:06 by Dee Richardson MD) Stress bladder incontinence, female (Chronic) Urge incontinence (Chronic) Chronic constipation (Chronic) Grade III hemorrhoids (Chronic) Hypothyroidism (Chronic) Glaucoma (Chronic) Obstipation (Chronic) Edentulous (Chronic) Chronic hypoxemic respiratory failure (Chronic) Toxic metabolic encephalopathy (Chronic) Suicide attempt (Chronic) Phenytoin toxicity (Chronic) Tobacco use (Chronic) Depression (Chronic) Insomnia (Chronic) She takes Temazepam every night for sleep, prescribed by Dr. Veliz Hypertension (Chronic) Physical debility (Chronic) Degenerative disc disease, lumbar (Chronic) Pain, chronic (Chronic) Seizure disorder (Chronic) Restless leg syndrome (Chronic) COPD (chronic obstructive pulmonary disease) (Chronic) 1 ppd now smoker 4 ppd Obstructive sleep apnea (Chronic) non-compliant with CPAP but has oxygen to wear at night Smokes with greater than 40 pack year history (Chronic) Medical History: Medical History (Last Reviewed 08/21/18 @ 09:06 by Dee Richardson MD) Depression (Chronic) F32.9 Insomnia (Chronic) G47.00 She takes Temazepam every night for sleep, prescribed by Dr. Veliz Hypertension (Chronic) I10 Physical debility (Chronic) R53.81 Degenerative disc disease, lumbar (Chronic) M51.36 Pain, chronic (Chronic) G89.29 Seizure disorder (Chronic) G40.909 Restless leg syndrome (Chronic) COPD (chronic obstructive pulmonary disease) (Chronic) J44.9 1 ppd now smoker 4 ppd Obstructive sleep apnea (Chronic) G47.33 non-compliant with CPAP but has oxygen to wear at night Smokes with greater than 40 pack year history (Chronic) F17.210 Allergies Penicillins Allergy (Verified 07/22/19 11:54) Anaphylaxis codeine Adverse Reaction (Verified 01/08/19 11:54) Nausea Home Medications: Ambulatory Orders Medication Instructions Recorded Aspirin [Aspirin EC] 81 mg PO DAILY 01/07/19 Calcium Carbonate [Tums] 500 mg PO BIDCM 01/07/19 Calcium Carbonate/Vitamin D3 500 mg PO BID 01/07/19 [Oyster Shell Calcium-Vit D Tab] Duloxetine HCl 20 mg PO DAILY 01/07/19 Etodolac 400 mg PO BID 01/07/19 Gabapentin [Neurontin] 300 mg PO 4X/DAY 01/07/19 Levothyroxine [Synthroid] 50 mcg PO DAILY 01/07/19 Methadone HCl 10 mg PO TID 01/07/19 Methylnaltrexone [place] [Relistor] 150 mg PO DAILY 01/07/19 Mirabegron [Myrbetriq] 50 mg PO DAILY 01/07/19 Mirtazapine 7.5 mg PO QHS 01/07/19 Multivitamins,Therapeutic 1 tab PO DAILY 01/07/19 [Multivitamin] Ondansetron [Zofran Odt] 4 mg PO Q8H PRN PRN #10 tab 01/07/19 Oxcarbazepine [Trileptal] 600 mg PO BID 01/07/19 Phenobarbital 32.4 mg PO BID 01/07/19 Potassium Chloride [K-Dur] 20 meq PO BID 01/07/19 Primidone [Mysoline] 50 mg PO DAILY 01/07/19 Ranitidine [Zantac] 300 mg PO DAILY 01/07/19 Risperidone 0.25 mg PO DAILY 01/07/19 Sennosides [Senna] 2 tab PO BID 01/07/19 Smz/Tmp Ds [Bactrim Ds] 1 tab PO BID 01/07/19 Temazepam 2 tab PO QHS 01/07/19 Surgical History: Surgical History (Last Updated 08/18/18 @ 13:33 by Kristel Lynch DO) History of right hip replacement (Inactive) Z96.641 S/P appendectomy (Inactive) Z90.49 S/P laparoscopic cholecystectomy (Inactive) Z90.49 Surgical History: appendectomy, cholecystectomy, - - Fractured right ankle, carpal tunnel surgery, removal of teeth, right ovariectomy and fallopian tube removal. 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 Smoking Status: Current every day smoker - *Family History Maternal Family History: Family History (Last Reviewed 06/13/18 @ 22:00 by Yunior Heaton MD) Mother Diabetes Heart disease Hypertension CAD (coronary artery disease) CVA (cerebral vascular accident) History Items: Diabetes Paternal Family History: Family History (Last Reviewed 06/13/18 @ 22:00 by Yunior Heaton MD) Mother Diabetes Heart disease Hypertension CAD (coronary artery disease) CVA (cerebral vascular accident) History Items: Cancer - colon Sibling Family History: Family History (Last Reviewed 06/13/18 @ 22:00 by Yunior Heaton MD) Mother Diabetes Heart disease Hypertension CAD (coronary artery disease) CVA (cerebral vascular accident) History Items: No pertinent history Review of Systems Constitutional: Reports: Malaise, Fatigue. Denies: Chills, Fever, Weight Change HEENT: Denies: Head Aches, Sinus Congestion, Sinus Drainage Cardiovascular: Denies: Chest Pain, Palpitations Respiratory: Denies: Cough, Shortness of breath at rest, Sputum production Gastrointestinal: Reports: Abdominal Pain, Diarrhea, Nausea, Vomiting Genitourinary: Reports: Dysuria, Frequency, Urgency Musculoskeletal: Reports: Back Pain. Denies: Joint Pain, Joint Tenderness Skin: Denies: Rash, Wounds Neurological: Denies: Numbness, Tingling, Focal weakness Psychiatric: Denies: Anxiety, Depression, Homicidal Ideations, Suicidal Ideations Hematologic/ Lymphatic: Denies: Easy Bruising, Easy Bleeding VTE Information - Inpt Only VTE Present on Admission: No VTE Mechan Device Prophylaxis: None VTE Pharm Prophylaxis ordered?: Yes Patient Problems: Active and Suspected Problems (Last Reviewed 08/21/18 @ 09:06 by Dee Ricahrdson MD) Diarrhea (Acute) Dehydration (Acute) Weakness (Acute) - Physical Exam General: Alert, Oriented x3, Cooperative HEENT: Atraumatic, PERRLA, EOMI, Normocephalic Oral: No Gingival or Mucosal Lesions/ Ulcerations, Dry Mucosa Neck: Supple, No JVD, Negative Carotid Bruits Lungs: Clear to auscultation, Normal air movement Cardiovascular: Regular rate, Regular Rhythm, Normal S1, Normal S2, No murmurs Abdomen: Bowel Sounds Present, Soft, Non-Distended, Hypoactive Bowel Sounds, Tender - Tenderness present on upper abdominal. No rebound tenderness. No guarding/rigidity., Hernia - Hiatus hernia on CT scan Extremities: No edema, Capillary Refill Less than 3 Seconds Skin: No rashes, No breakdown Musculoskeletal: No Tenderness to Palpation of Joints or Extremities Neurological: Cranial nerves II-XII grossly intact Psych/Mental Status: Normal Affect, Appropriate Vital Signs Temp Pulse Resp BP Pulse Ox 99.1 F 98 18 183/100 H 93 01/08/19 11:52 01/08/19 14:24 01/08/19 16:28 01/08/19 14:24 01/08/19 14:24 Oxygen Delivery Method Room Air Weight: 159 lb 13.362 oz Body Mass Index (BMI) 26.6 Laboratory Tests Past 24 Hrs 01/08/19 01/08/19 01/08/19 12:53 12:53 12:53 WBC 15.6 H RBC 5.10 Hgb 15.7 H Hct 47.0 MCV 92.2 MCH 30.8 MCHC 33.4 RDW Std Deviation 46.0 H RDW Coeff of Jordin 13.5 Plt Count 286 MPV 9.2 Immature Gran % (Auto) 0.400 Neut % (Auto) 83.4 H Lymph % (Auto) 8.5 L Cecil % (Auto) 7.5 Eos % (Auto) 0.1 Baso % (Auto) 0.1 Absolute Neuts (auto) 13.0 H Absolute Lymphs (auto) 1.32 Absolute Nucleated RBC 0.00 Nucleated RBC % 0 Sodium 136 Potassium 3.0 L Chloride 100 Carbon Dioxide 29.0 Anion Gap 7 BUN 18 Creatinine 0.70 Estim Creat Clear Calc 47.78 Est GFR (MDRD) Af Amer 106 Est GFR (MDRD) Non-Af 88 BUN/Creatinine Ratio 25.7 H Glucose 155 H Lactic Acid 1.6 Calcium 8.9 Magnesium Total Bilirubin 0.60 Direct Bilirubin 0.16 AST 23 ALT 25 Alkaline Phosphatase 84 Troponin I < 0.015 Total Protein 8.1 Albumin 3.7 Globulin 4.4 H Lipase 56 L Urine Color Urine Clarity Urine pH Ur Specific [place] Urine Protein Urine Glucose (UA) Urine Ketones Urine Occult Blood Urine Nitrite Urine Bilirubin Urine Urobilinogen Ur Leukocyte Esterase Urine RBC Urine WBC Ur Squamous Epith Cells Urine Bacteria Urine Mucus 01/08/19 01/08/19 12:53 15:30 WBC RBC Hgb Hct MCV MCH MCHC RDW Std Deviation RDW Coeff of Jordin Plt Count MPV Immature Gran % (Auto) Neut % (Auto) Lymph % (Auto) Cecil % (Auto) Eos % (Auto) Baso % (Auto) Absolute Neuts (auto) Absolute Lymphs (auto) Absolute Nucleated RBC Nucleated RBC % Sodium Potassium Chloride Carbon Dioxide Anion Gap BUN Creatinine Estim Creat Clear Calc Est GFR (MDRD) Af Amer Est GFR (MDRD) Non-Af BUN/Creatinine Ratio Glucose Lactic Acid Calcium Magnesium Pending Total Bilirubin Direct Bilirubin AST ALT Alkaline Phosphatase Troponin I Total Protein Albumin Globulin Lipase Urine Color Yellow Urine Clarity Clear Urine pH 6.5 Ur Specific [place] 1.015 Urine Protein 100 H Urine Glucose (UA) 50 H Urine Ketones 50 H Urine Occult Blood 50 H Urine Nitrite Negative Urine Bilirubin Negative Urine Urobilinogen Normal Ur Leukocyte Esterase Negative Urine RBC 0-5 SEEN Urine WBC 0-5 SEEN Ur Squamous Epith Cells 0-5 SEEN Urine Bacteria RARE Urine Mucus 3+ Assessment/Plan All Active Problems (Last Reviewed 08/21/18 @ 09:06 by Dee Richardson MD) Gastroenteritis (Acute) Rectal prolapse (Acute) Diarrhea (Acute) Dehydration (Acute) Weakness (Acute) Urinary tract infection (Acute) HABP (hospital-acquired bacterial pneumonia) (Ruled-out) The patient is a 68 year old F with multiple comorbidities as listed above, last admission between 11/07 two 11/09 after she was admitted for similar nausea vomiting and diarrhea and then constipation with a diagnosis of rectal prolapse came to ED with nausea vomiting and diarrhea multiple times for last 2 days. Patient was seen in ER yesterday and was sent home as she did not had abdominal pain at that time. Abdominal pain started today in the morning, diffuse epigastric, stabbing in nature and localized. Patient denies fever or chills. She recalls that she was in contact with home health care record about 2 days ago who had diarrhea. In ED, she had CT abdomen done which shows large retrocardiac hiatus hernia, composed of mainly fundus of the stomach and sigmoid diverticulosis. Normal small intestine. Patient already had appendectomy and cholecystectomy in the past. No recent blood work shows hypokalemia, potassium 3.0, leukocytosis 15.6 thousand with neutrophils 83%. Lipase is normal. LFTs normal. 1. Acute gastroenteritis possible viral gastroenteritis/experienced diarrhea secondary to long-standing constipation/small GI transit: [facility] She denies any recent antibiotic exposure. Stool for C. difficile, enteric bacterial D panel, occult blood and leukocytes ordered. On IV fluid normal saline at 125 mill per hour and titrate as per the intake and output. 2. Lower urinary tract symptoms: Patient complains of mild burning micturition, along with increased frequency and urgency for last 2 to 3 days. UA shows rare bacteria, WBC 0-5 cells, RBC 0-5 cells LE and nitrite negative. Urine culture is ordered. Hold for antibiotic. 3. Mild hypokalemia: Potassium being replaced. 4. COPD: Currently breathing is on baseline. Not wheezing or in respiratory distress. Continue current home medications 5. Seizure disorder: Patient is on phenobarbital, oxcarbazepine at home and is being continued. Other chronic comorbidities include chronic constipation, urge incontinence, rectal prolapse, grade 3 hemorrhoids diffuse degenerative disorder. DVT prophylaxis: On Lovenox 40 subcu daily. Discontinue his stool for occult blood or any obvious decrease in H&H. Discontinue if platelet count drops less than 50,000 or hemoglobin less than 8 g% Laboratory Results 01/08/19 12:53: WBC 15.6 H, RBC 5.10, Hgb 15.7 H, Hct 47.0, MCV 92.2, MCH 30.8, MCHC 33.4, RDW Std Deviation 46.0 H, RDW Coeff of Jordin 13.5, Plt Count 286, MPV 9.2, Immature Gran % (Auto) 0.400, Neut % (Auto) 83.4 H, Lymph % (Auto) 8.5 L, Cecil % (Auto) 7.5, Eos % (Auto) 0.1, Baso % (Auto) 0.1, Absolute Neuts (auto) 13.0 H, Absolute Lymphs (auto) 1.32, Absolute Nucleated RBC 0.00, Nucleated RBC % 0 01/08/19 12:53: Sodium 136, Potassium 3.0 L, Chloride 100, Carbon Dioxide 29.0, Anion Gap 7, BUN 18, Creatinine 0.70, Estim Creat Clear Calc 47.78, Est GFR (MDRD) Af Amer 106, Est GFR (MDRD) Non-Af 88, BUN/Creatinine Ratio 25.7 H, Glucose 155 H, Calcium 8.9, Total Bilirubin 0.60, Direct Bilirubin 0.16, AST 23, ALT 25, Alkaline Phosphatase 84, Troponin I < 0.015, Total Protein 8.1, Albumin 3.7, Globulin 4.4 H, Lipase 56 L 01/08/19 12:53: Lactic Acid 1.6 01/08/19 12:53: Magnesium Pending 01/08/19 15:30: Urine Color Yellow, Urine Clarity Clear, Urine pH 6.5, Ur Specific [place] 1.015, Urine Protein 100 H, Urine Glucose (UA) 50 H, Urine Ketones 50 H, Urine Occult Blood 50 H, Urine Nitrite Negative, Urine Bilirubin Negative, Urine Urobilinogen Normal, Ur Leukocyte Esterase Negative, Urine RBC 0-5 SEEN, Urine WBC 0-5 SEEN, Ur Squamous Epith Cells 0-5 SEEN, Urine Bacteria RARE, Urine Mucus 3+ Clinical Impression(s) from Imaging Studies Abdomen/Pelvis CT 01/08/19 12:06 IMPRESSION: No suspicious solid organ abnormality Large retrocardiac hiatal hernia Sigmoid diverticulosis Uterus is still present Degenerative bony changes Code Visit Inpatient E&M: 78188 Init Hosp L3
[2019-01-08 17:22] LABS: Magnesium 2.3 mg/dL (1.6-2.6)
[2019-01-08] MEDS: 0.9% Normal Saline 1,000 ML 125 ML IV (18:17)
[2019-01-08] MEDS: Enoxaparin 40 MG/0.4 ML Syringe SC (18:29)
[2019-01-08] MEDS: Gabapentin 300 MG Capsule PO ×2 (18:29→22:56)
[2019-01-08] MEDS: Potassium Chloride 10mEq/100mL 10 MEQ/100 ML IV.SOLN. 100 MEQ IV BOLUS ×2 (18:30→20:03)
[2019-01-08 18:34] VITALS: BMI 26.6
[2019-01-08] MEDS: Morphine 2 MG/ML Syringe IV (20:03)
[2019-01-08 20:07] VITALS: BMI 26.0
[2019-01-08] MEDS: 0.9% NaCl Peripheral Flush Adult/Peds IV ×2 (20:24→22:56)
[2019-01-08] MEDS: proMETHazine 25 MG/ML Syringe 12.5 MG IV (20:24)
[2019-01-08 20:42] VITALS: BP 148/85; PULSE 109; RESP 20; TEMP 38; O2SAT 93
[2019-01-08 21:47] VITALS: O2SAT 93
[2019-01-08 22:45] LABS: Bedside Glucose 129 mg/dL (70-110)
[2019-01-08] MEDS: Famotidine 20 MG Tablet PO (22:56)
[2019-01-08] MEDS: Mirtazapine 15 MG Tablet 7.5 MG PO (22:56)
[2019-01-08] MEDS: Acetaminophen 325 MG Tablet 650 MG PO (22:56)
[2019-01-08] MEDS: OXcarbazepine 600 MG Tablet PO (22:56)
[2019-01-08] MEDS: Methadone 10 MG Tablet PO (22:58)
[2019-01-08] MEDS: Temazepam 15 MG Capsule 30 MG PO (23:10)
[2019-01-08] MEDS: Calcium Carb/Vitamin D 1 TABLET Tablet PO (23:11)
[2019-01-08] MEDS: Phenobarbital 32.4 MG Tablet PO (23:11)
[2019-01-08 23:13] VITALS: TEMP 37.6
[2019-01-09] MEDS: 0.9% Normal Saline 1,000 ML 125 ML IV (03:04)
[2019-01-09 03:06] VITALS: BP 107/61; PULSE 83; RESP 18; TEMP 37.2; O2SAT 97
[2019-01-09 05:34] LABS: Absolute Lymphocyte Count 2.83 X10^3/uL (0.83-4.51); Absolute Neutrophil Count 9.8 X10^3/uL (2.0-7.7); Basophil# 0.03 X10^3/uL; Basophil% 0.2 % (0-1); Eosinophil# 0.01 X10^3/uL; Eosinophils% 0.1 % (0-5); Lymphocyte # 2.83 X10^3/ul (4.0); Lymphocyte % 20.4 % (19-41); Mean Corp Hgb Conc 31.6 g/dL (32-36); Mean Platelet Vol. 8.9 fl (6.2-12.0); Monocyte# 1.21 X10^3/uL; Monocyte% 8.7 % (0-10); NRBC Flagged by Analyzer 0 % (0-5); Neutrophil # 9.75 X10^3/uL (2.7-7.7); Neutrophil % 70.2 % (47-70); Platelet Count 231 K/mm3 (150-450); RBC Distribution Width CV 13.8 % (11.6-14.6); RBC Distribution Width SD 48.6 fl (35.1-43.9); White Blood Count 13.9 K/mm3 (4.4-11.0)
[2019-01-09 06:22] LABS: Anion Gap 8 (5-15); BUN 16 mg/dL (7-18); BUN/Creat Ratio 34.9 RATIO (10-20); Calcium,Total 7.4 mg/dL (8.5-10.1); Chloride 111 mmol/L (98-107); Creatinine, Serum 0.46 mg/dL (0.55-1.02); EST Glomerular Filtration Rate 143 mL/min (>60); Est Glom Filt Rate - Afr Amer 174 mL/min (>60); Estimated Creatinine Clearance 47.78 ml/min; Glucose 96 mg/dL (74-106); Phosphorus 2.7 mg/dL (2.5-4.9); Potassium 3.5 mmol/L (3.5-5.1); Sodium Level 143 mmol/L (136-145); Thyroid Stim Hormone (TSH) 0.21 uIU/mL (0.358-3.74)
[2019-01-09] MEDS: 0.9% NaCl Peripheral Flush Adult/Peds IV ×3 (06:25→14:10)
[2019-01-09] MEDS: proMETHazine 25 MG/ML Syringe 12.5 MG IV ×2 (06:25→14:09)
[2019-01-09] MEDS: Methadone 10 MG Tablet PO ×2 (06:26→14:01)
[2019-01-09] MEDS: Levothyroxine 50 MCG Tablet PO (06:29)
[2019-01-09] MEDS: Morphine 2 MG/ML Syringe IV ×3 (06:36→14:10)
[2019-01-09 06:55] LABS: Bedside Glucose 95 mg/dL (70-110)
[2019-01-09 07:44] LABS: Albumin, Serum 2.5 g/dL (3.2-5.0)
[2019-01-09] MEDS: Ondansetron 4 MG/2 ML Vial IV (07:59)
[2019-01-09] MEDS: Aspirin E.C. 81 MG Tablet PO (08:05)
[2019-01-09] MEDS: Multivitamins,Therapeutic Tablet 1 TABLET PO (08:05)
[2019-01-09] MEDS: Calcium Carbonate 500 MG Tablet PO (08:05)
[2019-01-09 08:12] VITALS: BP 151/90; PULSE 95; RESP 16; TEMP 37.2; O2SAT 94
[2019-01-09] MEDS: Gabapentin 300 MG Capsule PO ×2 (09:37→14:01)
[2019-01-09] MEDS: Phenobarbital 32.4 MG Tablet PO (09:37)
[2019-01-09] MEDS: DULoxetine Hcl 20 MG Capsule PO (09:37)
[2019-01-09] MEDS: RisperiDONE 0.25 MG Tablet PO (09:37)
[2019-01-09] MEDS: Mirabegron 50 MG TAB.ER.24H PO (09:37)
[2019-01-09] MEDS: Mirtazapine 15 MG Tablet 7.5 MG PO (09:37)
[2019-01-09] MEDS: OXcarbazepine 600 MG Tablet PO (09:37)
[2019-01-09] MEDS: Enoxaparin 40 MG/0.4 ML Syringe SC (09:38)
[2019-01-09] MEDS: Famotidine 20 MG Tablet PO (09:42)
[2019-01-09] MEDS: Primidone 50 MG Tablet PO (09:42)
[2019-01-09] MEDS: Calcium Carb/Vitamin D 1 TABLET Tablet PO (09:42)
[2019-01-09] MEDS: Lidocaine 5% Patch 1 PATCH TOPICAL (11:10)
[2019-01-09] MEDS: Insulin Lispro 100 UNIT/ML INSULN.PEN SC (11:13)
[2019-01-09 11:14] VITALS: BP 156/86; PULSE 98; RESP 16; TEMP 36.7; O2SAT 92
[2019-01-09 11:46] LABS: Bedside Glucose 196 mg/dL (70-110)
--- NOTE | 2019-01-09 13:36 | CASEMGMT ---
RN CM Assessment Presentation: Nausea/Vomiting/diarrhea. Intro role of CM and purpose of RN CM assessment to patient in room. Pt is awake and alert. Demographics, PCP and Pharmacy verified, however pt became very nauseas and could not continue with assessment. PCP: Dr. Veliz Preferred Pharmacy: [facility] Pharmacy Insurance: [employer] Prescription Benefit: yes LNOK: Akhil Sandoval Living Arrangements: Lives in one story apt. Has aide come 5xweek alternating with 6x week. 3 hours/day through [facility] . Called to notify of pt's admission. Call to [facility] Oenologist: Beata Chen . - requested DC instructions be faxed to her on dc. 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 HHC: ERIC BELLE returned to room to discuss Home Health Care with patient. Pt declining stating she did not want. DME: rollator, raised toilet seat, toilet side rails, shower chair, grab bars, wheeled walker Patient DC goals: Home DC PLAN: Home w/ resumption of aide services through [facility]. Will fax DC instructions and Summary to pt's Sales Special Agent when available. Call to CM and message left that pt will be dc'd today. Jm LARSON RN ACM
[2019-01-09 13:38] LABS: Free T3 1.8 pg/mL (2.18-3.98); T4 Free Direct 0.87 ng/dL (0.76-1.46)
--- NOTE | 2019-01-09 13:43 | DCINST_ITS ---
- Discharge Diagnoses Current Active Problems: Current Active and Chronic Problems (Last Reviewed 08/21/18 @ 09:06 by Dee Richardson MD) Diarrhea (Acute) Dehydration (Acute) Weakness (Acute) Reason(s) for Visit for Discharge Instructions: Diarrhea, abdominal pain You will use the following diet at home:: Regular Your food should be the consistency of: Regular Your liquids should be the consistency of: Regular/Thin Discharge Activity: Return to Normal Activity Additional Instructions: Continue on your medications as prescribed. Follow-up with your PCPwithin 1-2 weeks for a referral to see the general surgeon for hiatal hernia repair. Continue to keep yourself hydrated. Allergies/Adverse Reactions: Allergies Penicillins Allergy (Verified 01/08/19 11:54) Anaphylaxis codeine Adverse Reaction (Verified 01/08/19 11:54) Nausea Medications to take at Discharge Aspirin [Aspirin EC] 81 mg PO DAILY 01/07/19 Calcium Carbonate [Tums] 500 mg PO BIDCM 01/07/19 Calcium Carbonate/Vitamin D3 [Oyster Shell Calcium-Vit D Tab] 500 mg PO BID 01/07/19 Duloxetine HCl 20 mg PO DAILY 01/07/19 Etodolac 400 mg PO BID 01/07/19 Gabapentin [Neurontin] 300 mg PO 4X/DAY 01/07/19 Levothyroxine [Synthroid] 50 mcg PO DAILY 01/07/19 Methadone HCl 10 mg PO TID 01/07/19 Methylnaltrexone [place] [Relistor] 150 mg PO DAILY 01/07/19 Mirabegron [Myrbetriq] 50 mg PO DAILY 01/07/19 Mirtazapine 7.5 mg PO QHS 01/07/19 Multivitamins,Therapeutic [Multivitamin] 1 tab PO DAILY 01/07/19 Ondansetron [Zofran Odt] 4 mg PO Q8H PRN PRN #10 tab 01/07/19 Oxcarbazepine [Trileptal] 600 mg PO BID 01/07/19 Phenobarbital 32.4 mg PO BID 01/07/19 Potassium Chloride [K-Dur] 20 meq PO BID 01/07/19 Primidone [Mysoline] 50 mg PO DAILY 01/07/19 Ranitidine [Zantac] 300 mg PO DAILY 01/07/19 Risperidone 0.25 mg PO DAILY 01/07/19 Sennosides [Senna] 2 tab PO BID 01/07/19 Smz/Tmp Ds [Bactrim Ds] 1 tab PO BID 01/07/19 Temazepam 2 tab PO QHS 01/07/19 Ensure Enlive 120 ml PO 4X/DAY #120 liquid 01/09/19 Lidocaine [Lidoderm Patch] 1 patch TOPICAL DAILY #20 patch 01/09/19 The following prescriptions were given: Ensure Enlive 120 ml PO 4X/DAY #120 liquid Transmission Status: Pending to [facility]/pharmacy #[id number] Lidocaine [Lidoderm Patch] 1 patch TOPICAL DAILY #20 patch Transmission Status: Pending to [facility]/pharmacy #[id number] Primary Care Physician: Patel Veliz Chi, MD [Primary Care Provider] - Please follow up with your Primary Care Physician in: within 1-2 weeks Test Results: Test results from this visit will be discussed in further detail at your follow- up appointment, if applicable. Proposed Discharge Date: 01/09/19
--- NOTE | 2019-01-09 13:47 | DS.PCM_ITS ---
Discharge Date and Diagnosis - Problem List Patient Problems: Active and Suspected Problems (Last Reviewed 08/21/18 @ 09:06 by Dee Richardson MD) Diarrhea (Acute) Dehydration (Acute) Weakness (Acute) Date of Admission: 01/08/19 Date of Discharge: 01/09/19 - Primary Discharge Diagnosis Active and Suspected Problems (Last Reviewed 08/21/18 @ 09:06 by Dee Richardson MD) Gastroenteritis, acute, likely viral, resolved Hypokalemia, resolved - Secondary Discharge Diagnosis Chronic Problems (Last Reviewed 08/21/18 @ 09:06 by Dee Richardson MD) Stress bladder incontinence, female (Chronic) Urge incontinence (Chronic) Chronic constipation (Chronic) Grade III hemorrhoids (Chronic) Hypothyroidism (Chronic) Glaucoma (Chronic) Obstipation (Chronic) Edentulous (Chronic) Chronic hypoxemic respiratory failure (Chronic) Toxic metabolic encephalopathy (Chronic) Suicide attempt (Chronic) Phenytoin toxicity (Chronic) Tobacco use (Chronic) Depression (Chronic) Insomnia (Chronic) She takes Temazepam every night for sleep, prescribed by Dr. Veliz Hypertension (Chronic) Physical debility (Chronic) Degenerative disc disease, lumbar (Chronic) Pain, chronic (Chronic) Seizure disorder (Chronic) Restless leg syndrome (Chronic) COPD (chronic obstructive pulmonary disease) (Chronic) 1 ppd now smoker 4 ppd Obstructive sleep apnea (Chronic) non-compliant with CPAP but has oxygen to wear at night Smokes with greater than 40 pack year history (Chronic) Hospital Course and Treatment Operations: None Procedures: None Summary of Care Provided: The patient is a 68 year old F multiple comorbidities who comes in with persistent nausea, vomiting and diarrhea ongoing for the past 2 days. Patient complains of abdominal pain that is mostly epigastric, diffuse, stabbing. She complains of diarrhea about 14 times the day before admission 7-8 times in a day of admission. She had a CT scan of the abdomen which showed a large hiatal hernia which consist mainly of the fundus of the stomach and sigmoid diverticulosis. She did not have any diarrhea during her hospital stay. She was very insistent on her pain medication despite being on methadone and multiple pain regimen. She exhibited pain seeking behavior with she being comfortably sleeping but when woken up, will complain of having severe pain all over. She had leukocytosis on admission which improved the next day with the antibiotics. She also had hypokalemia which was replaced. Patient's stool for C. difficile was negative. Stool for ova and parasites were pending at the time of discharge. Her FOBT was positive but her hemoglobin remained stable. Patient has been advised to follow-up with her primary care doctor for referral to see gastroenterology and also see a general surgeon for a hiatal hernia. Patient Problems: Active and Suspected Problems (Last Reviewed 08/21/18 @ 09:06 by Dee Richardson MD) Diarrhea (Acute) Dehydration (Acute) Weakness (Acute) Subjective: On the day of discharge, patient was seen and examined. She complained of pain in her back. Lidoderm patches were prescribed. No diarrhea was seen in this admission. Stool for C. difficile was negative. Stool for ova and parasite was pending at time of discharge. Her FOBT was positive however hemoglobin remained stable. Repeat H&H was stable. - Physical Exam General: Alert, Oriented x3, Cooperative, No apparent distress HEENT: Atraumatic, PERRLA, EOMI, Normocephalic Oral: Moist Mucosa Neck: Supple Lungs: Clear to auscultation, Normal air movement Cardiovascular: Regular rate, Regular Rhythm, Normal S1, Normal S2, No murmurs Abdomen: Bowel Sounds Present, Soft, Non Tender, Non-Distended, No Hepato-s plenomegaly Extremities: No edema Skin: No rashes, No breakdown Musculoskeletal: No Tenderness to Palpation of Joints or Extremities Lymphatic: No Cervical, Supraclavicular, or Inguinal Adenopathy Neurological: Cranial nerves II-XII grossly intact, Neuro grossly intact Psych/Mental Status: Normal Affect, Appropriate Vital Signs Temp Pulse Resp BP Pulse Ox 98.1 F 98 16 156/86 H 92 01/09/19 11:14 01/09/19 11:14 01/09/19 11:14 01/09/19 11:14 01/09/19 11:14 Oxygen Delivery Method Room Air Weight: 72.6 kg Body Mass Index (BMI) 26.0 Intake and Output for Last 24 Hours 01/07/19 01/08/19 01/09/19 23:59 23:59 23:59 Intake Total 1252 / 1252 1383 / 1383 Balance 1252 / 1252 1383 / 1383 Microbiology Past 72 Hours 01/08/19 15:00 Stool Lactoferrin - Final Stool 01/08/19 15:00 Stool Occult Blood (JASWANT) - Final Stool Occult Blood Positive 01/08/19 15:30 Urine Culture - Preliminary Urine, Clean Catch Culture exhibits no growth. 01/08/19 15:00 C. difficile DNA Amplification - Final Stool Laboratory Tests Past 24 Hrs 01/08/19 01/08/19 01/09/19 12:53 15:30 05:18 WBC RBC Hgb Hct MCV MCH MCHC RDW Std Deviation RDW Coeff of Jordin Plt Count MPV Immature Gran % (Auto) Neut % (Auto) Lymph % (Auto) Avery % (Auto) Eos % (Auto) Baso % (Auto) Absolute Neuts (auto) Absolute Lymphs (auto) Absolute Nucleated RBC Nucleated RBC % Sodium 143 Potassium 3.5 Chloride 111 H Carbon Dioxide 24.0 Anion Gap 8 BUN 16 Creatinine 0.46 L Estim Creat Clear Calc 47.78 Est GFR (MDRD) Af Amer 174 Est GFR (MDRD) Non-Af 143 BUN/Creatinine Ratio 34.9 H Glucose 96 Calcium 7.4 L Phosphorus 2.7 Magnesium 2.3 Albumin TSH 0.21 L Free T4 Free T3 pg/dL Urine Color Yellow Urine Clarity Clear Urine pH 6.5 Ur Specific Blackstock 1.015 Urine Protein 100 H Urine Glucose (UA) 50 H Urine Ketones 50 H Urine Occult Blood 50 H Urine Nitrite Negative Urine Bilirubin Negative Urine Urobilinogen Normal Ur Leukocyte Esterase Negative Urine RBC 0-5 SEEN Urine WBC 0-5 SEEN Ur Squamous Epith Cells 0-5 SEEN Urine Bacteria RARE Urine Mucus 3+ 01/09/19 01/09/19 01/09/19 05:18 05:18 13:05 WBC 13.9 H RBC 4.00 L Hgb 12.0 Hct 38.0 MCV 95.0 MCH 30.0 MCHC 31.6 L RDW Std Deviation 48.6 H RDW Coeff of Jordin 13.8 Plt Count 231 MPV 8.9 Immature Gran % (Auto) 0.400 Neut % (Auto) 70.2 H Lymph % (Auto) 20.4 Avery % (Auto) 8.7 Eos % (Auto) 0.1 Baso % (Auto) 0.2 Absolute Neuts (auto) 9.8 H Absolute Lymphs (auto) 2.83 Absolute Nucleated RBC 0.00 Nucleated RBC % 0 Sodium Potassium Chloride Carbon Dioxide Anion Gap BUN Creatinine Estim Creat Clear Calc Est GFR (MDRD) Af Amer Est GFR (MDRD) Non-Af BUN/Creatinine Ratio Glucose Calcium Phosphorus Magnesium Albumin 2.5 L TSH Free T4 0.87 Free T3 pg/dL 1.8 L Urine Color Urine Clarity Urine pH Ur Specific Blackstock Urine Protein Urine Glucose (UA) Urine Ketones Urine Occult Blood Urine Nitrite Urine Bilirubin Urine Urobilinogen Ur Leukocyte Esterase Urine RBC Urine WBC Ur Squamous Epith Cells Urine Bacteria Urine Mucus POC Glucose 01/09/19 01/09/19 01/08/19 11:08 06:32 22:39 POC Glucose 196 H 95 129 H Discharge Diet: No Restrictions Discharge Activity: Return to Normal Activity Home Medications: Medications to take at Discharge Aspirin [Aspirin EC] 81 mg PO DAILY 01/07/19 Calcium Carbonate [Tums] 500 mg PO BIDCM 01/07/19 Calcium Carbonate/Vitamin D3 [Oyster Shell Calcium-Vit D Tab] 500 mg PO BID 01/07/19 Duloxetine HCl 20 mg PO DAILY 01/07/19 Etodolac 400 mg PO BID 01/07/19 Gabapentin [Neurontin] 300 mg PO 4X/DAY 01/07/19 Levothyroxine [Synthroid] 50 mcg PO DAILY 01/07/19 Methadone HCl 10 mg PO TID 01/07/19 Methylnaltrexone Dexter [Relistor] 150 mg PO DAILY 01/07/19 Mirabegron [Myrbetriq] 50 mg PO DAILY 01/07/19 Mirtazapine 7.5 mg PO QHS 01/07/19 Multivitamins,Therapeutic [Multivitamin] 1 tab PO DAILY 01/07/19 Ondansetron [Zofran Odt] 4 mg PO Q8H PRN PRN #10 tab 01/07/19 Oxcarbazepine [Trileptal] 600 mg PO BID 01/07/19 Phenobarbital 32.4 mg PO BID 01/07/19 Potassium Chloride [K-Dur] 20 meq PO BID 01/07/19 Primidone [Mysoline] 50 mg PO DAILY 01/07/19 Ranitidine [Zantac] 300 mg PO DAILY 01/07/19 Risperidone 0.25 mg PO DAILY 01/07/19 Sennosides [Senna] 2 tab PO BID 01/07/19 Smz/Tmp Ds [Bactrim Ds] 1 tab PO BID 01/07/19 Temazepam 2 tab PO QHS 01/07/19 Ensure Enlive 120 ml PO 4X/DAY #120 liquid 01/09/19 Lidocaine [Lidoderm Patch] 1 patch TOPICAL DAILY #20 patch 01/09/19 Following Prescrptions Were Given to Patient: Ensure Enlive 120 ml PO 4X/DAY #120 liquid Transmission Status: Received by [facility]/pharmacy #[id number] Lidocaine [Lidoderm Patch] 1 patch TOPICAL DAILY #20 patch Transmission Status: Received by [facility]/pharmacy #[id number] Primary Care Physician: Patel Veliz Chi, MD [Primary Care Provider] - Please follow up with your Primary Care Physician in: within 1-2 weeks Disposition: Home Minutes spent on discharge:: 40 Patient Condition:: Stable Medical Necessity - Tobacco Use Smoking Status: Current every day smoker Tobacco Use: Cigarettes Meaningful Use Info Meaningful Use Diagnoses (Choose all that apply): None applicable Code Visit OBSV E&M: 23355 Observation care discharge
--- NOTE | 2019-01-09 13:50 | NURSING ---
This RN called Dr. Veliz's office to see if pt has been prescribed Bactrim. Awaiting return phone call from Dr. Jose Alfredo Vela's nurse.
[2019-01-09 14:18] VITALS: BP 158/92; PULSE 88; RESP 18; TEMP 37.2; O2SAT 92
[2019-01-09 14:21] VITALS: BP 158/92; PULSE 88; RESP 18; TEMP 37.2; O2SAT 92
[2019-01-09 14:57] LABS: Hematocrit 41.4 % (37-47); Hemoglobin 13.8 g/dL (12.0-15.0)
--- NOTE | 2019-01-09 15:08 | CASEMGMT ---
ERIC BELLE Note: [facility] Jm LARSON RN ACM
== END 2019-01-09 16:00 | disposition home or self-care (01) ==
LOC: ED 12:42 → MS3 16:17
PROVIDERS: Admitting Provider Internal Medicine; Emergency Provider Emergency Medicine; Family Provider Family Medicine Geriatric Medicine; PCP Family Medicine Geriatric Medicine; Referring Provider Internal Medicine; Visit Provider Internal Medicine
DX: E86.0 Dehydration (principal); K52.9 Noninfective gastroenteritis and colitis, unspecified; E87.6 Hypokalemia; N39.46 Mixed incontinence; H40.9 Unspecified glaucoma; E03.9 Hypothyroidism, unspecified; F32.9 Major depressive disorder, single episode, unspecified; I10 Essential (primary) hypertension; G25.81 Restless legs syndrome; J44.9 Chronic obstructive pulmonary disease, unspecified; M51.36 Other intervertebral disc degeneration, lumbar region; F17.210 Nicotine dependence, cigarettes, uncomplicated; G89.29 Other chronic pain; G40.909 Epilepsy, unspecified, not intractable, without status epilepticus; G47.33 Obstructive sleep apnea (adult) (pediatric); K57.30 Diverticulosis of large intestine without perforation or abscess without bleeding; K44.9 Diaphragmatic hernia without obstruction or gangrene; Z79.899 Other long term (current) drug therapy; Z79.82 Long term (current) use of aspirin; Z91.19 Patient's noncompliance with other medical treatment and regimen; Z79.891 Long term (current) use of opiate analgesic
CPT/HCPCS: 36415; 74176; 80048; 80076; 81001; 82040; 82274; 82962; 83605; 83630; 83690; 83735; 84100; 84439; 84443; 84481; 84484; 85014; 85018; 85025; 87086; 87177; 87209; 87493; 93005; 96361; 96372; 96374; 96375; 96376; 97162; 97166; 97802; 99218; 99285; J7030; A4216; G0378; J2405

== ENCOUNTER 2019-01-10 19:09 | Emergency (ER) | payer MEDICARE, SELFPAY ==
[2019-01-10 19:10] VITALS: BP 159/112; PULSE 107; RESP 24; TEMP 37.2; O2SAT 92; BMI 28.3
--- NOTE | 2019-01-10 19:27 | ED.VISSUMM ---
- ER Visit Summary Date of Service: 01/10/19 Chief Complaint: Abdominal pain, nausea, vomiting, diarrhea History of Present Illness: The patient is a 68 F who presents with the above symptoms. It started 3 days ago. She just left the hospital last night for the same symptoms. She had negative C. difficile and WBC in her stool. She did have some blood but her hemoglobin was stable. She was hydrated and discharged to home. She states that she vomited 4 times today and still has diarrhea. She took no medications for any of this at home. She denies any significant fevers at home. Her pain is diffuse and cramping. Physical Examination: Vital signs reviewed. HEENT exam unremarkable. Heart is tachycardic and regular rhythm without murmurs. Lungs are clear to auscultation. Abdomen is soft and nontender. Extremities reveal no edema. Skin exam normal. Neurologic exam normal. Test Results: White blood cell count 11.3 which is trending down. Sodium 135, potassium 3.1. Urinalysis negative for infection Emergency Department Course and Treatment: Patient was given saline, Zofran and Bentyl. She is still having pain so she was given morphine. This is still likely gastroenteritis. Her labs are improving. I do not feel she needs to be readmitted to the hospital. She is not significantly dehydrated. Patient will be given Bentyl and Zofran ODT for home. She will call her PCP tomorrow for follow-up. Treatment Plan: [] Disposition: Discharge Impression: Gastroenteritis This note was generated with [email or web address] dictation software. It may contain incorrect words, spelling, and punctuation that were not noted in review of the chart prior to signing ED Disposition - Plan for ED Patient: Referrals: Patel Veliz Chi, MD [Primary Care Provider] -
[2019-01-10] MEDS: 0.9% Normal Saline 1,000 ML 1000 ML IV (19:34)
[2019-01-10] MEDS: Dicyclomine 20 MG/2 ML Vial IM (19:37)
[2019-01-10 19:41] LABS: Absolute Lymphocyte Count 2.19 X10^3/uL (0.83-4.51); Absolute Neutrophil Count 7.9 X10^3/uL (2.0-7.7); Basophil# 0.05 X10^3/uL; Basophil% 0.4 % (0-1); Eosinophil# 0.03 X10^3/uL; Eosinophils% 0.3 % (0-5); Hematocrit 43.6 % (37-47); Hemoglobin 14.5 g/dL (12.0-15.0); Lymphocyte # 2.19 X10^3/ul (4.0); Lymphocyte % 19.4 % (19-41); Mean Corp Hgb Conc 33.3 g/dL (32-36); Mean Corpuscular Volume 93.4 fL (81-99); Mean Platelet Vol. 9.1 fl (6.2-12.0); Monocyte# 1.04 X10^3/uL; Monocyte% 9.2 % (0-10); NRBC Flagged by Analyzer 0 % (0-5); Neutrophil # 7.91 X10^3/uL (2.7-7.7); Neutrophil % 70.2 % (47-70); Platelet Count 265 K/mm3 (150-450); RBC Distribution Width CV 13.2 % (11.6-14.6); RBC Distribution Width SD 44.9 fl (35.1-43.9); Red Blood Count 4.67 M/mm3 (4.2-5.4); White Blood Count 11.3 K/mm3 (4.4-11.0)
[2019-01-10] MEDS: Ondansetron 4 MG/2 ML Vial IV (19:42)
[2019-01-10 19:57] LABS: ALB/GLOB Ratio 0.9 RATIO (0.9-2.4); AST(SGOT) 15 U/L (15-37); Alanine Aminotransfer ALT/SGPT 21 U/L (13-56); Albumin, Serum 3.5 g/dL (3.2-5.0); Alkaline Phosphatase 79 U/L (45-117); Anion Gap 6 (5-15); BUN 11 mg/dL (7-18); BUN/Creat Ratio 19.1 RATIO (10-20); Calcium,Total 8.5 mg/dL (8.5-10.1); Chloride 99 mmol/L (98-107); Creatinine, Serum 0.58 mg/dL (0.55-1.02); EST Glomerular Filtration Rate 110 mL/min (>60); Est Glom Filt Rate - Afr Amer 133 mL/min (>60); Estimated Creatinine Clearance 47.78 ml/min; Globulin 4.1 g/dL (2.2-4.2); Glucose 134 mg/dL (74-106); Lipase 75 U/L (73-393); Potassium 3.1 mmol/L (3.5-5.1); Protein, Total 7.6 g/dL (6.4-8.2); Sodium Level 135 mmol/L (136-145)
[2019-01-10 20:30] LABS: Bacteria 0 SEEN /hpf (None Seen); Mucous, Urine 0 SEEN /hpf (<or=2+); Squamous Epithelial Cells - UA 0 SEEN /hpf (5-10); White Blood Cells 0 SEEN /hpf (0-5)
[2019-01-10 20:33] LABS: Color, Urine Yellow (Yellow); Glucose, Dipstick 50 mg/dl (Normal); Ketone-Dipstick 5 mg/dl (Negative); Leukocyte Esterase-Dipstick Negative /ul (Negative); Nitrite-Dipstick Negative (Negative); Occult Blood-Urine 10 /ul (Negative); Protein-Dipstick 30 mg/dl (Negative); Specific Gravity, Urine 1.005 (1.002-1.030); Urine Bilirubin Dipstick Negative (Negative); Urine Clarity Sl. Cloudy (Clear); Urine Urobilinogen Normal (Normal)
[2019-01-10 20:39] LABS: Red Blood Cells-Urine 0-5 SEEN /hpf (0-5)
--- NOTE | 2019-01-10 20:47 | ED.DEP ---
ED Disposition - Plan for ED Patient: Disposition: Home or Assisted Living Instructions: FOOD POISONING or GASTROENTERITIS (5y-Adult) Prescriptions: Dicyclomine HCl [Bentyl] 20 mg PO TIDAC #20 cap Prescription Printed Ondansetron [Zofran Odt] 4 mg PO Q8H PRN PRN #10 tab PRN Reason: Nausea Prescription Printed Referrals: Patel Veliz Chi, MD [Primary Care Provider] -
[2019-01-10] MEDS: Morphine 4 MG/ML Syringe IV (20:52)
[2019-01-10 21:08] VITALS: BP 178/104; PULSE 95; RESP 16; O2SAT 94
== END 2019-01-10 21:08 | disposition home or self-care (01) ==
PROVIDERS: Emergency Provider Emergency Medicine; Family Provider Family Medicine Geriatric Medicine; PCP Family Medicine Geriatric Medicine
DX: K52.9 Noninfective gastroenteritis and colitis, unspecified (principal)
CPT/HCPCS: 80053; 81001; 83690; 85025; 96361; 96372; 96374; 96375; 99285; J7030; A4216; J2405

== ENCOUNTER → 2019-01-11 15:07 | Outpatient (CLI) | payer MEDICARE, SELFPAY ==
[2019-01-10 19:10] VITALS: BMI 28.3
[2019-01-11 17:04] LABS: Absolute Lymphocyte Count 2.05 X10^3/uL (0.83-4.51); Absolute Neutrophil Count 6.4 X10^3/uL (2.0-7.7); Basophil# 0.06 X10^3/uL; Basophil% 0.6 % (0-1); Eosinophil# 0.02 X10^3/uL; Eosinophils% 0.2 % (0-5); Hematocrit 45.7 % (37-47); Hemoglobin 15.2 g/dL (12.0-15.0); Lymphocyte # 2.05 X10^3/ul (4.0); Lymphocyte % 21.6 % (19-41); Mean Corp Hgb Conc 33.3 g/dL (32-36); Mean Corpuscular Hgb 30.4 pg (27.0-32.0); Mean Corpuscular Volume 91.4 fL (81-99); Monocyte# 0.96 X10^3/uL; Monocyte% 10.1 % (0-10); NRBC Flagged by Analyzer 0 % (0-5); Neutrophil # 6.38 X10^3/uL (2.7-7.7); Neutrophil % 67.3 % (47-70); Platelet Count 282 K/mm3 (150-450); RBC Distribution Width CV 13.2 % (11.6-14.6); RBC Distribution Width SD 44.7 fl (35.1-43.9); White Blood Count 9.5 K/mm3 (4.4-11.0)
[2019-01-11 17:53] LABS: Anion Gap 11 (5-15); BUN 12 mg/dL (7-18); BUN/Creat Ratio 21.9 RATIO (10-20); Calcium,Total 9.1 mg/dL (8.5-10.1); Chloride 97 mmol/L (98-107); Creatinine, Serum 0.55 mg/dL (0.55-1.02); EST Glomerular Filtration Rate 117 mL/min (>60); Est Glom Filt Rate - Afr Amer 142 mL/min (>60); Glucose 135 mg/dL (74-106); Potassium 3.5 mmol/L (3.5-5.1); Sodium Level 136 mmol/L (136-145)
== END ==
PROVIDERS: Family Provider Family Medicine Geriatric Medicine; PCP Family Medicine Geriatric Medicine; Visit Provider Family Medicine Geriatric Medicine
DX: E87.6 Hypokalemia (principal)
CPT/HCPCS: 36415; 80048; 85025

== ENCOUNTER 2019-01-12 03:44 | Emergency (ER) | payer MEDICARE, SELFPAY ==
[2019-01-12 03:46] VITALS: BP 193/116; PULSE 110; RESP 19; TEMP 37.3; O2SAT 93; BMI 26.7
[2019-01-12] MEDS: Ondansetron 4 MG/2 ML Vial IV (04:16)
[2019-01-12] MEDS: 0.9% Normal Saline 1,000 ML 1000 ML IV (04:16)
[2019-01-12] MEDS: Morphine 4 MG/ML Syringe IV (04:17)
[2019-01-12 04:28] LABS: Absolute Lymphocyte Count 1.63 X10^3/uL (0.83-4.51); Absolute Neutrophil Count 7.5 X10^3/uL (2.0-7.7); Basophil# 0.01 X10^3/uL; Basophil% 0.1 % (0-1); Hematocrit 44.4 % (37-47); Hemoglobin 14.8 g/dL (12.0-15.0); Lymphocyte # 1.63 X10^3/ul (4.0); Lymphocyte % 15.9 % (19-41); Mean Corp Hgb Conc 33.3 g/dL (32-36); Mean Corpuscular Hgb 30.5 pg (27.0-32.0); Mean Corpuscular Volume 91.5 fL (81-99); Mean Platelet Vol. 9.3 fl (6.2-12.0); Monocyte# 1.08 X10^3/uL; Monocyte% 10.5 % (0-10); NRBC Flagged by Analyzer 0 % (0-5); Neutrophil # 7.49 X10^3/uL (2.7-7.7); Neutrophil % 73.1 % (47-70); POSITIVE MORPHOLOGY YES; Platelet Count 268 K/mm3 (150-450); RBC Distribution Width CV 12.9 % (11.6-14.6); RBC Distribution Width SD 43.5 fl (35.1-43.9); Red Blood Count 4.85 M/mm3 (4.2-5.4); White Blood Count 10.3 K/mm3 (4.4-11.0)
[2019-01-12 04:29] LABS: ALB/GLOB Ratio 0.9 RATIO (0.9-2.4); AST(SGOT) 22 U/L (15-37); Alanine Aminotransfer ALT/SGPT 25 U/L (13-56); Albumin, Serum 3.2 g/dL (3.2-5.0); Alkaline Phosphatase 66 U/L (45-117); Anion Gap 11 (5-15); BUN 14 mg/dL (7-18); BUN/Creat Ratio 23.3 RATIO (10-20); Calcium,Total 9.3 mg/dL (8.5-10.1); Chloride 99 mmol/L (98-107); Differential Indicated SCAN CRITERIA MET; EST Glomerular Filtration Rate 105 mL/min (>60); Est Glom Filt Rate - Afr Amer 127 mL/min (>60); Estimated Creatinine Clearance 47.78 ml/min; Globulin 3.6 g/dL (2.2-4.2); Glucose 139 mg/dL (74-106); Lipase 47 U/L (73-393); Potassium 3.6 mmol/L (3.5-5.1); Protein, Total 6.8 g/dL (6.4-8.2); Sodium Level 137 mmol/L (136-145)
[2019-01-12 04:58] LABS: Differential Comment SCANNED
[2019-01-12 05:05] VITALS: BP 194/108; PULSE 102; RESP 19; O2SAT 93
--- NOTE | 2019-01-12 05:26 | ED.DCSUM_ITS ---
- ER Visit Summary Date of Service: 01/12/19 Chief Complaint: Abdominal pain, nausea, vomiting, diarrhea History of Present Illness: The patient is a 68 F who presents with abdominal pain nausea vomiting diarrhea. She had multiple recent ER visits for the same and was recently hospitalized as well. Her symptoms have been going on for about 1 week. She has had negative studies for C. difficile and an unremarkable CT. She also complains of some headache and rhinorrhea. Physical Examination: Heart rate 110 blood pressure 193/116 Moist mucous membranes Heart regular tachycardia Lungs are clear Abdomen soft and nondistended. She does have some epigastric tenderness without guarding without rebound Test Results: CBC CMP lipase unremarkable. Emergency Department Course and Treatment: Patient was treated with IV fluids morphine Zofran. She was resting comfortably on reevaluation. I do not see an indication for hospitalization at this time. She does not have nausea medications at home. I did prescribe a prescription. She was advised to follow-up with her primary care physician. I discussed that she may need further outpatient work-up or referral such as gastroenterology or potentially surgery in regards to her hiatal hernia. Treatment Plan: [] Disposition: Discharge Impression: Abdominal pain Nausea vomiting Diarrhea This note was generated with [employer] dictation software. It may contain incorrect words, spelling, and punctuation that were not noted in review of the chart prior to signing ED Disposition - Plan for ED Patient: Referrals: Patel Veliz Chi, MD [Primary Care Provider] -
--- NOTE | 2019-01-12 05:28 | ED.DEP ---
ED Disposition - Plan for ED Patient: Instructions: ABDOMINAL PAIN, Unknown Cause, (Female) Prescriptions: Loperamide [Imodium] 2 mg PO Q6H PRN PRN #20 cap PRN Reason: Diarrhea Prescription Printed Ondansetron [Zofran Odt] 4 mg PO Q8H PRN PRN #10 tab PRN Reason: Nausea Prescription Printed Referrals: Patel Veliz Chi, MD [Primary Care Provider] -
[2019-01-12 05:33] VITALS: BP 173/105; PULSE 101; RESP 14; O2SAT 94
== END 2019-01-12 06:06 | disposition home or self-care (01) ==
LOC: ED 04:30
PROVIDERS: Emergency Provider Emergency Medicine; Family Provider Family Medicine Geriatric Medicine; PCP Family Medicine Geriatric Medicine
DX: R10.13 Epigastric pain (principal); R11.2 Nausea with vomiting, unspecified; R19.7 Diarrhea, unspecified; J44.9 Chronic obstructive pulmonary disease, unspecified; Z79.899 Other long term (current) drug therapy
CPT/HCPCS: 80053; 83690; 85025; 96361; 96374; 96375; 99285; J7030; A4216; J2405

== ENCOUNTER 2019-01-12 12:02 | Emergency (ER) | payer MEDICARE, SELFPAY ==
[2019-01-12] VITALS (11 sets, daily range): BP systolic 122–157; BP diastolic 74–85; PULSE 85–99; RESP 14–18; TEMP 36.6–37.1; O2SAT 92–94; BMI 26.7; BMI 25.9
--- NOTE | 2019-01-12 12:30 | EKG12_ITS ---
Test Reason : Blood Pressure : / mmHG Vent. Rate : 089 BPM Atrial Rate : 089 BPM P-R Int : 132 ms QRS Dur : 086 ms QT Int : 380 ms P-R-T Axes : 061 -17 040 degrees QTc Int : 462 ms Normal sinus rhythm Normal ECG Confirmed by BLUE LEACH, GO ([id number]), general expeditor WESLY CASTAÑEDA ([id number]) on 01/15/2019 1:47:00 PM Referred By: ANNIE Confirmed By:SAMI MCARTHUR MD
--- NOTE | 2019-01-12 12:30 | RAD_ITS ---
STUDY: X-RAY CHEST REASON FOR EXAM: Female, 68 years old. Altered mental status TECHNIQUE: Single AP portable view of the chest. COMPARISON: 11/07/2018 FINDINGS: The lungs are clear and expanded. There is no demonstrated pleural abnormality. Normal size heart. Normal mediastinum and denae. Normal visualized pulmonary arteries. Normal visualized aortic arch and descending thoracic aorta. There are diffuse degenerative changes of the visualized thoracic spine. There is degenerative osteoarthritis of the bilateral shoulders. There is no demonstrated abnormality of the visualized soft tissue structures of the upper abdomen. RAD/Chest 1 View (Portable) IMPRESSION: No acute pulmonary process Electronically Signed: Edison Lawrence MD at 12:50 EDT , Service support ,
--- NOTE | 2019-01-12 12:30 | CT_ITS ---
STUDY: CT BRAIN WITHOUT CONTRAST REASON FOR EXAM: Female, 68 years old. Mental status change RADIATION DOSAGE (If Supplied By Facility): CTDIvol = ( 60.81 ) mGy, DLP = ( 1021.47 ) mGycm TECHNIQUE: Transaxial CT imaging of the brain was performed without administration of intravenous contrast material. Individualized dose optimization techniques were used for this CT. COMPARISON: 08/01/18 FINDINGS: Normal soft tissue structures. Normal calvarium. Normal size ventricles and extra-axial spaces for the patient's age. Normal white matter tracts of the cerebral hemispheres. Normal basal ganglia and thalami. Normal brainstem. Normal cerebellum. There is no intracranial hemorrhage. There are no findings of an acute ischemic infarction. Normal visualized paranasal sinuses. CT/Brain/Head without Contrast IMPRESSION: Chronic involutional changes of the brain. Electronically Signed: Edison Lawrence MD at 13:06 EDT , Service support ,
[2019-01-12 12:47] LABS: Absolute Lymphocyte Count 2.13 X10^3/uL (0.83-4.51); Absolute Neutrophil Count 8.6 X10^3/uL (2.0-7.7); Basophil# 0.02 X10^3/uL; Basophil% 0.2 % (0-1); Eosinophil# 0.02 X10^3/uL; Eosinophils% 0.2 % (0-5); Hematocrit 45.3 % (37-47); Hemoglobin 15.2 g/dL (12.0-15.0); Lymphocyte # 2.13 X10^3/ul (4.0); Lymphocyte % 17.9 % (19-41); Mean Corp Hgb Conc 33.6 g/dL (32-36); Mean Corpuscular Hgb 30.7 pg (27.0-32.0); Mean Corpuscular Volume 91.5 fL (81-99); Mean Platelet Vol. 9.1 fl (6.2-12.0); Monocyte# 1.08 X10^3/uL; Monocyte% 9.1 % (0-10); NRBC Flagged by Analyzer 0 % (0-5); Neutrophil # 8.58 X10^3/uL (2.7-7.7); Neutrophil % 72.3 % (47-70); Platelet Count 298 K/mm3 (150-450); RBC Distribution Width SD 43.8 fl (35.1-43.9); Red Blood Count 4.95 M/mm3 (4.2-5.4); White Blood Count 11.9 K/mm3 (4.4-11.0)
[2019-01-12 13:06] LABS: ALB/GLOB Ratio 0.8 RATIO (0.9-2.4); AST(SGOT) 15 U/L (15-37); Alanine Aminotransfer ALT/SGPT 23 U/L (13-56); Albumin, Serum 3.4 g/dL (3.2-5.0); Alkaline Phosphatase 73 U/L (45-117); Anion Gap 5 (5-15); BUN 17 mg/dL (7-18); BUN/Creat Ratio 24.2 RATIO (10-20); Calcium,Total 8.9 mg/dL (8.5-10.1); Chloride 98 mmol/L (98-107); EST Glomerular Filtration Rate 88 mL/min (>60); Est Glom Filt Rate - Afr Amer 106 mL/min (>60); Estimated Creatinine Clearance 47.78 ml/min; Glucose 136 mg/dL (74-106); Potassium 3.2 mmol/L (3.5-5.1); Protein, Total 7.4 g/dL (6.4-8.2); Sodium Level 133 mmol/L (136-145); Thyroid Stim Hormone (TSH) 0.44 uIU/mL (0.358-3.74)
[2019-01-12 14:25] LABS: Bacteria 0 SEEN /hpf (None Seen); Mucous, Urine 0 SEEN /hpf (<or=2+); Squamous Epithelial Cells - UA 0 SEEN /hpf (5-10)
[2019-01-12 14:28] LABS: Color, Urine Yellow (Yellow); Glucose, Dipstick 50 mg/dl (Normal); Ketone-Dipstick 50 mg/dl (Negative); Leukocyte Esterase-Dipstick 25 /ul (Negative); Nitrite-Dipstick Negative (Negative); Occult Blood-Urine 10 /ul (Negative); Protein-Dipstick 30 mg/dl (Negative); Specific Gravity, Urine 1.015 (1.002-1.030); Urine Bilirubin Dipstick Negative (Negative); Urine Clarity Sl. Cloudy (Clear); Urine Urobilinogen Normal (Normal); Urine pH 6.5 (5.0 - 8.0)
[2019-01-12] MEDS: Ondansetron ODT 4 MG Tablet PO (14:29)
[2019-01-12] MEDS: Diphth,Pertuss(Acell),Tet Vac 0.5 ML Vial IM (14:29)
[2019-01-12 14:38] LABS: Red Blood Cells-Urine 0-5 SEEN /hpf (0-5); White Blood Cells 0-5 SEEN /hpf (0-5)
[2019-01-12 14:42] LABS: Amphetamine Urine VISTA NEGATIVE (<1000 ng/mL); Barbiturate Urine VISTA POSITIVE (< 200 ng/mL); Benzodiazepine Urine VISTA POSITIVE (< 200 ng/mL); Cocaine Urine VISTA NEGATIVE (< 300 ng/mL); Ecstacy Urine VISTA NEGATIVE (< 500 ng/mL); Methadone Urine VISTA NEGATIVE (< 300 ng/mL); PCP Urine VISTA NEGATIVE (< 25 ng/mL); THC Urine VISTA NEGATIVE (< 50 ng/mL); Vista UDS pH Range 6
--- NOTE | 2019-01-12 14:44 | NURSING ---
CALLED [facility]. THEY SAID THEY ARE SHORT HANDED TO CALL CRISIS. CALLED CRISIS AND TALKED TO DEBBIE. THEY WILL BE HERE, HAVE SOME THINGS TO FINISH UP FIRST
--- NOTE | 2019-01-12 15:15 | ED.VISSUMM ---
- ER Visit Summary Date of Service: 01/12/19 Chief Complaint: Suicidal ideation History of Present Illness: The patient is a 68 F who states that she is tired of having chronic back and abdominal pain. 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 She states that she leaves the emergency department she will go home and cut her jugular or find another way to kill herself. She states that this morning was an effort to kill herself but that she failed and is upset of herself for failing to kill herself. She has multiple chronic medical conditions. Unknown last tetanus. At the end of July beginning of August she was hospitalized a toxic Dilantin level. She is no longer on Dilantin. At that time she had a superficial wrist abrasions was seen by crisis and is felt that she did not need inpatient evaluation by psychiatry. Physical Examination: Afebrile vital signs stable Gen: Well-nourished well-developed morbidly obese Head: Normocephalic atraumatic Eyes: Perrl EOMI ENT: TMs clear no rhinorrhea moist mucous membranes Neck: Supple no lymphadenopathy no JVD nontender CVS: Regular rate rhythm no murmurs normal S1-S2 Respiratory: No distress clear to auscultation bilaterally chest nontender Abdomen: Soft nontender nondistended normal bowel sounds no masses Back: Nontender Extremity: Nontender no edema there are numerous superficial abrasions to the bilateral volar wrist. No active bleeding. Skin: Normal color no rash Neuro: alert orientated ?3 CN II-XII intact normal strength sensation Psych: Flat blunted affect. Minimal eye contact. Admits to suicidality Test Results: Screening labs were obtained. Since urine tox is positive for opiates (she is on methadone), barbiturates (she is on phenobarbital), and benzodiazepines (she is prescribed this) Emergency Department Course and Treatment: Wounds were cleansed and dressed tetanus was updated with Adacel. Crisis was contacted to help in transferring the patient to psychiatric facility. Impression: 1. Suicidal ideation with attempt 2. Bilateral wrist abrasions 3. Tetanus update This note was generated with [employer] dictation software. It may contain incorrect words, spelling, and punctuation that were not noted in review of the chart prior to signing ED Disposition - Plan for ED Patient: Referrals: Patel Veliz Chi, MD [Primary Care Provider] -
--- NOTE | 2019-01-12 15:58 | NURSING ---
[place], CRISIS, ON HIS WAY
--- NOTE | 2019-01-12 16:07 | NURSING ---
[facility], [facility]ISIS, HERE
[2019-01-12] MEDS: Acetaminophen 500 MG Tablet 1000 MG PO (17:00)
[2019-01-12] MEDS: oxyCODONE 5 MG Tablet 10 MG PO (17:00)
[2019-01-12] MEDS: Ondansetron 8 MG Tablet 4 MG PO (19:03)
--- NOTE | 2019-01-12 20:24 | ED.RN ---
PT REQUESTED O2 WHEN SHE SLEEPS, SPOKE WITH MD REGARDING THIS REQUEST, PT WILL INFORM STAFF WHEN SHE IS READY FOR THE O2.
--- NOTE | 2019-01-12 20:26 | ED.RN ---
PT IS COMPLAINING ABOUT STAFF NOT CARING ABOUT HER, COMPLAINING ABOUT THE BED HURTING HER BACK. MD AWARE, NO NEW ORDERS GIVEN.
[2019-01-12] MEDS: Phenobarbital 32.4 MG Tablet PO (21:19)
[2019-01-12] MEDS: OXcarbazepine 600 MG Tablet PO (21:20)
[2019-01-12] MEDS: Temazepam 15 MG Capsule 30 MG PO (21:20)
[2019-01-12] MEDS: Mirtazapine 15 MG Tablet 7.5 MG PO (21:20)
[2019-01-13] VITALS (9 sets, daily range): BP systolic 141–162; BP diastolic 80–100; PULSE 79–93; RESP 12–18; O2SAT 97–99
--- NOTE | 2019-01-13 02:02 | NURSING ---
ACCEPTED [facility] [phone] REPORT
[2019-01-13] MEDS: oxyCODONE 5 MG Tablet PO (04:33)
[2019-01-13] MEDS: Ondansetron ODT 4 MG Tablet 8 MG PO (05:57)
[2019-01-13] MEDS: Levothyroxine 50 MCG Tablet PO (07:58)
[2019-01-13] MEDS: Methadone 10 MG Tablet PO (07:58)
[2019-01-13] MEDS: RisperiDONE 0.25 MG Tablet PO (07:59)
[2019-01-13] MEDS: DULoxetine Hcl 20 MG Capsule PO (07:59)
[2019-01-13] MEDS: OXcarbazepine 600 MG Tablet PO (07:59)
--- NOTE | 2019-01-13 08:01 | ED.RN ---
MORNING MEDS GIVEN AT TIMES PT TYPICALLY TAKES AT HOME PER PT REQUEST.
[2019-01-13] MEDS: Primidone 50 MG Tablet PO (11:02)
[2019-01-13] MEDS: Gabapentin 300 MG Capsule PO (11:02)
[2019-01-13] MEDS: Phenobarbital 32.4 MG Tablet PO (11:02)
[2019-01-13] MEDS: Latanoprost 0.005% 1 Bottle 1 DRP OPHTHALMIC (11:07)
--- NOTE | 2019-01-13 11:39 | ED.RN ---
[facility] NUMBER CALLED PER PT REQUEST. NOTIFIED ASAD'S SO OF PT TRANSFER
== END 2019-01-13 11:15 ==
PROVIDERS: Emergency Medicine; Emergency Provider Emergency Medicine; Family Provider Family Medicine Geriatric Medicine; PCP Family Medicine Geriatric Medicine
DX: S60.812A Abrasion of left wrist, initial encounter (principal); S60.811A Abrasion of right wrist, initial encounter; X78.8XXA Intentional self-harm by other sharp object, initial encounter; Y93.89 Activity, other specified; Y92.9 Unspecified place or not applicable; G40.909 Epilepsy, unspecified, not intractable, without status epilepticus; F79 Unspecified intellectual disabilities; J44.9 Chronic obstructive pulmonary disease, unspecified; Z79.82 Long term (current) use of aspirin; Z79.899 Other long term (current) drug therapy; R10.13 Epigastric pain; G89.29 Other chronic pain; R11.2 Nausea with vomiting, unspecified; R19.7 Diarrhea, unspecified
CPT/HCPCS: 70450; 71045; 80053; 80184; 80307; 80320; 81001; 83690; 84443; 85025; 90715; 93005; 96361; 96374; 96375; 99285; J7030; P9612; A4216; G0480; J2405

== ENCOUNTER → 2019-02-20 09:25 | Outpatient (CLI) | payer MEDICARE, SELFPAY ==
[2019-01-12 12:03] VITALS: BMI 25.9
[2019-02-20 15:07] LABS: Absolute Lymphocyte Count 2.01 X10^3/uL (0.83-4.51); Absolute Neutrophil Count 3.8 X10^3/uL (2.0-7.7); Basophil# 0.04 X10^3/uL; Basophil% 0.6 % (0-1); Eosinophil# 0.28 X10^3/uL; Eosinophils% 4.2 % (0-5); Hematocrit 39.9 % (37-47); Hemoglobin 13.1 g/dL (12.0-15.0); Lymphocyte # 2.01 X10^3/ul (4.0); Lymphocyte % 29.8 % (19-41); Mean Corp Hgb Conc 32.8 g/dL (32-36); Mean Corpuscular Hgb 31.3 pg (27.0-32.0); Mean Corpuscular Volume 95.5 fL (81-99); Mean Platelet Vol. 9.4 fl (6.2-12.0); Monocyte# 0.64 X10^3/uL; Monocyte% 9.5 % (0-10); NRBC Flagged by Analyzer 0 % (0-5); Neutrophil # 3.75 X10^3/uL (2.7-7.7); Neutrophil % 55.6 % (47-70); Platelet Count 225 K/mm3 (150-450); RBC Distribution Width CV 13.6 % (11.6-14.6); RBC Distribution Width SD 47.8 fl (35.1-43.9); Red Blood Count 4.18 M/mm3 (4.2-5.4); White Blood Count 6.7 K/mm3 (4.4-11.0)
[2019-02-20 15:26] LABS: Vitamin D,25 Hydroxy 14.5 ng/mL (29.95-100.01)
[2019-02-20 15:31] LABS: ALB/GLOB Ratio 0.9 RATIO (0.9-2.4); AST(SGOT) 14 U/L (15-37); Alanine Aminotransfer ALT/SGPT 26 U/L (13-56); Albumin, Serum 3.2 g/dL (3.2-5.0); Alkaline Phosphatase 78 U/L (45-117); Anion Gap 6 (5-15); BUN 14 mg/dL (7-18); BUN/Creat Ratio 26.3 RATIO (10-20); Calcium,Total 8.4 mg/dL (8.5-10.1); Chloride 104 mmol/L (98-107); Creatinine, Serum 0.53 mg/dL (0.55-1.02); EST Glomerular Filtration Rate 121 mL/min (>60); Est Glom Filt Rate - Afr Amer 146 mL/min (>60); Globulin 3.4 g/dL (2.2-4.2); Glucose 99 mg/dL (74-106); Potassium 4.3 mmol/L (3.5-5.1); Protein, Total 6.6 g/dL (6.4-8.2); Sodium Level 140 mmol/L (136-145); Thyroid Stim Hormone (TSH) 0.79 uIU/mL (0.358-3.74)
== END ==
PROVIDERS: Family Provider Family Medicine Geriatric Medicine; PCP Family Medicine Geriatric Medicine; Visit Provider Family Medicine Geriatric Medicine
DX: E55.9 Vitamin D deficiency, unspecified (principal); I10 Essential (primary) hypertension
CPT/HCPCS: 36415; 80053; 82306; 84443; 85025

== ENCOUNTER 2019-03-07 09:24 | Day surgery (SDC) | payer MEDICARE, SELFPAY ==
[2019-02-21 14:31] VITALS: BMI 25.9
--- NOTE | 2019-02-24 17:35 | HP_ITS ---
Intake Vital Signs 02/21/19 Body Mass Index (BMI) 25.9 02/21/19 Height 5 ft 5 in 02/21/19 Weight: 164 lb 2 oz 02/21/19 Body Mass Index (BMI) 27.3 02/21/19 Blood Pressure 133/79 H 02/21/19 Blood Pressure Location Rt brachial 02/21/19 Respiratory Rate 20 H 02/21/19 Pulse Rate 99 02/21/19 Pulse Ox 96 Intake Visit Reasons: Abdominal Pain & Nausea Chief Complaint: Department Mgr Required: No Is patient in pain?: No Allergies codeine Allergy (Mild, Verified 02/21/19 14:28) HIVES Penicillins Allergy (Verified 01/12/19 12:10) Anaphylaxis Medications Aspirin [Aspirin EC] 81 mg PO DAILY 01/07/19 [History Confirmed 02/21/19] Duloxetine HCl 20 mg PO DAILY 01/07/19 [History Confirmed 02/21/19] Etodolac 400 mg PO BID 01/07/19 [History Confirmed 02/21/19] Levothyroxine [Synthroid] 50 mcg PO DAILY 01/07/19 [History Confirmed 02/21/19] Mirabegron [Myrbetriq] 50 mg PO DAILY 01/07/19 [History Confirmed 02/21/19] Multivitamins,Therapeutic [Multivitamin] 1 tab PO DAILY 01/07/19 [History Confirmed 02/21/19] Oxcarbazepine [Trileptal] 600 mg PO BID 01/07/19 [History Confirmed 02/21/19] Phenobarbital 32.4 mg PO BID 01/07/19 [History Confirmed 02/21/19] Potassium Chloride [K-Dur] 20 meq PO BID 01/07/19 [History Confirmed 02/21/19] Ranitidine [Zantac] 300 mg PO DAILY 01/07/19 [History Confirmed 02/21/19] Risperidone 0.25 mg PO DAILY 01/07/19 [History Confirmed 02/21/19] Sennosides [Senna] 2 tab PO BID 01/07/19 [History Confirmed 02/21/19] Temazepam 2 tab PO QHS 01/07/19 [History Confirmed 02/21/19] calcium carbonate 500 mg calcium (1,250 mg) tablet 500 mg PO BID 02/21/19 [History Confirmed 02/21/19] methylnaltrexone 150 mg tablet 450 mg PO DAILY 02/21/19 [History Confirmed 02/21/19] mirtazapine 7.5 mg tablet 15 mg PO QHS tab 02/21/19 [History Confirmed 02/21/19] pravastatin 40 mg tablet 40 mg PO DAILY 02/21/19 [History] Is last menstrual period known: No Post menopausal: Yes Patient : No PFSH Medical History Depression (Chronic) Insomnia (Chronic) Hypertension (Chronic) Physical debility (Chronic) Degenerative disc disease, lumbar (Chronic) Pain, chronic (Chronic) Seizure disorder (Chronic) Restless leg syndrome (Chronic) COPD (chronic obstructive pulmonary disease) (Chronic) Obstructive sleep apnea (Chronic) Smokes with greater than 40 pack year history (Chronic) Surgical History History of bilateral cataract extraction (Acute) History of blepharoplasty (Acute) History of right salpingo-oophorectomy (Acute) Status post ORIF of fracture of ankle (Acute) History of cystoscopy (Acute) History of bilateral carpal tunnel release (Acute) History of right hip replacement (Inactive) S/P appendectomy (Inactive) S/P laparoscopic cholecystectomy (Inactive) Family History Mother Diabetes Heart disease Hypertension CAD (coronary artery disease) CVA (cerebral vascular accident) Thyroid disorder Father Colon cancer Social History (Updated 02/24/19 @ 13:37 by Daniel Taylor MD) Smoking Status: Former smoker HPI HPI HPI: XANDER RAMIREZ, is a 68 F who presents to the office today for HPI HPI Surgical H&P: Yes HPI: XANDER RAMIREZ, is a 68 F who presents to the office today for Evaluation for endoscopy.Patient has been presenting to the emergency department with nausea vomiting and diarrhea. She has had several episodes of this her studies for C. difficile have Been negative. She has had a CT scan of her abdomen and pelvis which was read as a large retrocardiac hiatal hernia sigmoid diverticulosis and degenerative bony changes.She states that food is been getting stuck in her esophagus. She is has been placed on Zantac and her symptoms have been slowly abating Patient states that she has rectal prolapse which has been increasing in nature over the last several months to year. ROS General General: Yes weight change and fatigue; no appetite, colon cancer, breast cancer or weakness HEENT HEENT: Yes eye surgery; no difficulty swallowing, eye injury, swollen glands or hoarseness Endo Endocrine: Yes thyroid disease; no diabetes mellitus, thyroid cancer, Hair loss, heat intolerance or cold intolerance Cardio Cardiovascular: No murmur, pacemaker, heart disease, atrial fibrillation, high blood pressure, heart attack, heart stent, palpitations, shortness of breat with exertion or chest pain Psych Psychiatric: No depression, anxiety or hearing voices Resp Respiratory: Yes shortness of breath, Yes sleep apnea, Yes cough, Yes COPD, No asthma, No emphysema, No wheezing Gastro Gastrointestinal: Yes abdominal pain, Yes nausea or vomiting, Yes diarrhea, Yes constipation, No blood in stool, Yes acid reflux, Yes hemorrhoids, No ulcers, No gallbladder problem, No black,tarry stools Neuro Neurologic: No weakness Exam Const General: no acute distress, well developed, well hydrated Orientation: oriented to person, oriented to place, oriented to time [facility] Head: normocephalic, atraumatic Ears: external ears normal Mouth: moist mucous membranes Eyes Sclera: sclerae normal Pupils: normal by confrontation Neck Neck: no lymphadenopathy noted Neck mass: No Thyroid: thyroid normal, symmetrical Chest Chest palpation & inspection: normal inspection of the chest Resp Effort & Inspection: normal respiratory effort Auscultation: clear to auscultation bilaterally Percussion: percussion normal Cardio Rate: regular rate Rhythm: regular rhythm Heart Sounds: no murmurs GI Inspection: obesity Palpation: soft, no hepatosplenomegaly, no masses, nontender Rectal Exam: other Other: Rectal exam deferred. Extrem General: normal to inspection, no clubbing, cyanosis or edema Assessment & Plan Problems 1. Esophageal dysphagia R13.10 2. Hiatal hernia K44.9 Plan I have discussed the above with the patient. I have offered the patient esophagogastroduodenoscopy for evaluation. I have explained the risks/benefits of the procedure and described the procedure. I have discussed the risks with the patient, including but not limited to: infection, bleeding, perforation of the GI tract requiring emergency surgery, inability to complete the procedure, injury to any internal organs, complications of anesthesia, etc. - the patient understands and agrees to proceed. I have answered all the patient's questions to the patient's satisfaction and the patient has no further questions. The patient has been given instructions for the colon cleansing preparation. At the present time I think that she is going to have to be evaluated by colorectal surgery for her rectal prolapse and I will defer any endoscopies to them. Orders Orders: EGD 02/21/19 Medications New: methylnaltrexone (Relistor) 450 mg PO DAILY calcium carbonate (Oyster Shell Calcium) 500 mg PO BID Coding Level of Care Code Off vis,new,level 3 Diagnoses Esophageal dysphagia R13.10 ??Dysphagia type: esophageal phase Hiatal hernia K44.9 02/24/19 1337 <Electronically signed by Daniel mcknight MD> Date _ Daniel Taylor MD I have re-examined the patient. There are no clinical changes since date of exam.
[2019-03-07 09:50] VITALS: BP 137/92; PULSE 86; RESP 16; TEMP 37; O2SAT 96; BMI 27.2
[2019-03-07] MEDS: Lactated Ringers 1,000 ML 100 ML IV (10:13)
--- NOTE | 2019-03-07 10:30 | IMM_PTH ---
PATIENT: XANDER RAMIREZ LOC: EN U#:[id number] AGE/SX: 68/F ROOM: RE03/07/[address]: Dr. Daniel Taylor MD : 1950 BED: DIS: 03/07/2019 SPEC #: [id number] RECD: 03/07/19 15:23 STATUS: DWAYNE REQ #: [id number] DANNY: 03/07/19 10:[address]: Daniel Taylor DEPT: IMMUNOHISTOCHEMISTRY RECD BY: Vanessa Cabrera ENTERED: 03/07/19 15:23 SP TYPE: IMMUNO OTHR DR: Dr. Patel Veliz MD Tissues: Stomach, NOS Procedures: H Pylori (initial) PHYSICIAN & INSTITUTION [place] [id number] SPECIMEN INFORMATION: Tissue Source: Antral biopsy Clinical Info: Dysphagia, hiatal hernia, abdominal pain, nausea Specimen Number: [id number] CPT code: 81995 METHODOLOGY: Deparaffinized sections of prefer/formalin-fixed tissue or PAP/DQ stained slides are incubated with monoclonal/polyclonal antibodies/oligonucleotide probes. Localization is made via biotin free immunoperoxidase method. Appropriate controls are performed and reacted as expected. Results on target cell population are indicated in the following table: RESULTS: ANTIBODY / CLONE RESULT H Pylori (polyclonal) negative These tests were developed and their performance characteristics determined by [facility]. They may not have been cleared or approved by the U.S. Food and Drug Administration. The FDA has determined that such clearance or approval is not necessary. INTERPRETATION: Antral biopsy: Negative for Helicobacter pylori organisms. SJ:ethan 03/08/19
--- NOTE | 2019-03-07 10:30 | EGD_PTH ---
PATIENT: XANDER RAMIREZ LOC: EN U#:[id number] AGE/SX: 68/F ROOM: RE03/07/[address]: Dr. Daniel Taylor MD : 1950 BED: DIS: 03/07/2019 SPEC #: [id number] RECD: 03/07/19 13:41 STATUS: DWAYNE ROBERTH #: [id number] DANNY: 03/07/19 10:[address]: Daniel Taylor DEPT: SURGICAL PATHOLOGY RECD BY: Gaurang Estrada ENTERED: 03/07/19 14:32 SP TYPE: EGD BIOPSY OT DR: Dr. Patel Veliz MD Tissues: Gastric mucous membrane Procedures: Surgery Specimen Level IV HEADER OPER[place] [place] DIAGNOSIS: Dysphagia, hiatal hernia, abdominal pain, nausea TISSUE SUBMITTED: Antral biopsy MICROSCOPIC DIAGNOSIS Antral biopsy: Minimal gastritis. See microscopic description and comment. SJ:ethan 03/08/19 COMMENT The results of immunohistochemistry for Helicobacter pylori will be reported separately ([id number]). MICROSCOPIC DESCRIPTION Slides are reviewed. The specimen shows fragments of gastric mucosa with chronic inflammatory cell infiltrates in the lamina propria consisting of lymphocytes and plasma cells, consistent with minimal chronic gastritis. GROSS DESCRIPTION Received in fixative is one container labeled with the patient's name and designated antral biopsy. The specimen consists of one irregular fragment of light johnson soft tissue that measures 0.7 x 0.2 x 0.1 cm. The specimen is totally submitted in one cassette. / SJ:rg 03/07/19 TC:3 CPT: 37779
--- NOTE | 2019-03-07 10:41 | HP.PCM_ITS ---
History and Physical Date of Admission: 03/07/19 [facility] [address] [place] [address] OFFICE VISIT Date of Service: 02/21/19 MR#: [id number] Acct: [id number] Name: XANDER RAMIREZ Rep #: [id number] : 1950 Provider: Daniel jeffries MD Age/Sex: 68/F Location: [facility] Status: Signed Intake Vital Signs 02/21/19 Body Mass Index (BMI) 25.9 02/21/19 Height 5 ft 5 in 02/21/19 Weight: 164 lb 2 oz 02/21/19 Body Mass Index (BMI) 27.3 02/21/19 Blood Pressure 133/79 H 02/21/19 Blood Pressure Location Rt brachial 02/21/19 Respiratory Rate 20 H 02/21/19 Pulse Rate 99 02/21/19 Pulse Ox 96 Intake Visit Reasons: Abdominal Pain & Nausea Chief Complaint: Manager Client Service Required: No Is patient in pain?: No Allergies codeine Allergy (Mild, Verified 02/21/19 14:28) HIVES Penicillins Allergy (Verified 01/12/19 12:10) Anaphylaxis Medications Aspirin [Aspirin EC] 81 mg PO DAILY 01/07/19 [History Confirmed 02/21/19] Duloxetine HCl 20 mg PO DAILY 01/07/19 [History Confirmed 02/21/19] Etodolac 400 mg PO BID 01/07/19 [History Confirmed 02/21/19] Levothyroxine [Synthroid] 50 mcg PO DAILY 01/07/19 [History Confirmed 02/21/19] Mirabegron [Myrbetriq] 50 mg PO DAILY 01/07/19 [History Confirmed 02/21/19] Multivitamins,Therapeutic [Multivitamin] 1 tab PO DAILY 01/07/19 [History Confirmed 02/21/19] Oxcarbazepine [Trileptal] 600 mg PO BID 01/07/19 [History Confirmed 02/21/19] Phenobarbital 32.4 mg PO BID 01/07/19 [History Confirmed 02/21/19] Potassium Chloride [K-Dur] 20 meq PO BID 01/07/19 [History Confirmed 02/21/19] Ranitidine [Zantac] 300 mg PO DAILY 01/07/19 [History Confirmed 02/21/19] Risperidone 0.25 mg PO DAILY 01/07/19 [History Confirmed 02/21/19] Sennosides [Senna] 2 tab PO BID 01/07/19 [History Confirmed 02/21/19] Temazepam 2 tab PO QHS 01/07/19 [History Confirmed 02/21/19] calcium carbonate 500 mg calcium (1,250 mg) tablet 500 mg PO BID 02/21/19 [History Confirmed 02/21/19] methylnaltrexone 150 mg tablet 450 mg PO DAILY 02/21/19 [History Confirmed 02/21/19] mirtazapine 7.5 mg tablet 15 mg PO QHS tab 02/21/19 [History Confirmed 02/21/19] pravastatin 40 mg tablet 40 mg PO DAILY 02/21/19 [History] Is last menstrual period known: No Post menopausal: Yes Patient : No PFSH Medical History Depression (Chronic) Insomnia (Chronic) Hypertension (Chronic) Physical debility (Chronic) Degenerative disc disease, lumbar (Chronic) Pain, chronic (Chronic) Seizure disorder (Chronic) Restless leg syndrome (Chronic) COPD (chronic obstructive pulmonary disease) (Chronic) Obstructive sleep apnea (Chronic) Smokes with greater than 40 pack year history (Chronic) Surgical History History of bilateral cataract extraction (Acute) History of blepharoplasty (Acute) History of right salpingo-oophorectomy (Acute) Status post ORIF of fracture of ankle (Acute) History of cystoscopy (Acute) History of bilateral carpal tunnel release (Acute) History of right hip replacement (Inactive) S/P appendectomy (Inactive) S/P laparoscopic cholecystectomy (Inactive) Family History Mother Diabetes Heart disease Hypertension CAD (coronary artery disease) CVA (cerebral vascular accident) Thyroid disorder Father Colon cancer Social History (Updated 02/24/19 @ 13:37 by Daniel Taylor MD) Smoking Status: Former smoker HPI HPI HPI: KATALINATYRONE RAMIRZE, is a 68 F who presents to the office today for HPI HPI Surgical H&P: Yes HPI: XANDER RAMIREZ, is a 68 F who presents to the office today for Evaluation for endoscopy.Patient has been presenting to the emergency department with nausea vomiting and diarrhea. She has had several episodes of this her studies for C. difficile have Been negative. She has had a CT scan of her abdomen and pelvis which was read as a large retrocardiac hiatal hernia sigmoid diverticulosis and degenerative bony changes.She states that food is been getting stuck in her esophagus. She is has been placed on Zantac and her symptoms have been slowly abating Patient states that she has rectal prolapse which has been increasing in nature over the last several months to year. ROS General General: Yes weight change and fatigue; no appetite, colon cancer, breast cancer or weakness HEENT HEENT: Yes eye surgery; no difficulty swallowing, eye injury, swollen glands or hoarseness Endo Endocrine: Yes thyroid disease; no diabetes mellitus, thyroid cancer, Hair loss, heat intolerance or cold intolerance Cardio Cardiovascular: No murmur, pacemaker, heart disease, atrial fibrillation, high blood pressure, heart attack, heart stent, palpitations, shortness of breat with exertion or chest pain Psych Psychiatric: No depression, anxiety or hearing voices Resp Respiratory: Yes shortness of breath, Yes sleep apnea, Yes cough, Yes COPD, No asthma, No emphysema, No wheezing Gastro Gastrointestinal: Yes abdominal pain, Yes nausea or vomiting, Yes diarrhea, Yes constipation, No blood in stool, Yes acid reflux, Yes hemorrhoids, No ulcers, No gallbladder problem, No black,tarry stools Neuro Neurologic: No weakness Exam Const General: no acute distress, well developed, well hydrated Orientation: oriented to person, oriented to place, oriented to time [facility] Head: normocephalic, atraumatic Ears: external ears normal Mouth: moist mucous membranes Eyes Sclera: sclerae normal Pupils: normal by confrontation Neck Neck: no lymphadenopathy noted Neck mass: No Thyroid: thyroid normal, symmetrical Chest Chest palpation & inspection: normal inspection of the chest Resp Effort & Inspection: normal respiratory effort Auscultation: clear to auscultation bilaterally Percussion: percussion normal Cardio Rate: regular rate Rhythm: regular rhythm Heart Sounds: no murmurs GI Inspection: obesity Palpation: soft, no hepatosplenomegaly, no masses, nontender Rectal Exam: other Other: Rectal exam deferred. Extrem General: normal to inspection, no clubbing, cyanosis or edema Assessment & Plan Problems 1. Esophageal dysphagia R13.10 2. Hiatal hernia K44.9 Plan I have discussed the above with the patient. I have offered the patient esophagogastroduodenoscopy for evaluation. I have explained the risks/benefits of the procedure and described the procedure. I have discussed the risks with the patient, including but not limited to: infection, bleeding, perforation of the GI tract requiring emerge ncy surgery, inability to complete the procedure, injury to any internal organs, complications of anesthesia, etc. - the patient understands and agrees to proceed. I have answered all the patient's questions to the patient's satisfaction and the patient has no further questions. The patient has been given instructions for the colon cleansing preparation. At the present time I think that she is going to have to be evaluated by colorectal surgery for her rectal prolapse and I will defer any endoscopies to them. Orders Orders: EGD 02/21/19 Medications New: methylnaltrexone (Relistor) 450 mg PO DAILY calcium carbonate (Oyster Shell Calcium) 500 mg PO BID Coding Level of Care Code Off vis,new,level 3 Diagnoses Esophageal dysphagia R13.10 ??Dysphagia type: esophageal phase Hiatal hernia K44.9 02/24/19 1337 <Electronically signed by Daniel mcknight MD> Date _ Daniel Taylor MD Cosigner Signature: Date (if applicable) CC: Dee Richardson MD; Patel Veliz MD ~
[2019-03-07 10:42] VITALS: BP 118/89; BP 137/92; PULSE 82; RESP 18; TEMP 36.2; O2SAT 98
[2019-03-07 10:46] VITALS: BP 120/78; BP 137/92; PULSE 80; RESP 17; O2SAT 98
--- NOTE | 2019-03-07 10:50 | OP.ENDO_ITS ---
03/07/2019 Patel Veliz MD [address] [place] [address] Re : Upper GI endoscopy procedure for Bela Sandoval Dear Dr. Veliz This procedure was performed on Thursday, March 07, 2019. My impressions and recommendations are as follows: Impressions : - Food in the middle third of the esophagus. No specimens collected. - Small hiatal hernia. - A large amount of food (residue) in the stomach. Patient will need to have a gastric emptying study as well as esophageal manometry studies. - Erythematous mucosa in the stomach. Biopsied. Recommendations : - Await pathology results. - Repeat upper endoscopy (date not yet determined) for surveillance. - Return to my office in 1 week. - Continue present medications. My findings are described in the full procedure note, which is enclosed. If I can be of further assistance, please feel free to contact me at Doctor phone number(s): , Fax: [phone], Work: . Sincerely, MD Daniel Contreras MD 03/07/2019 10:50:35 AM This report has been signed electronically.
[2019-03-07 10:52] VITALS: BP 127/78; BP 137/92; PULSE 76; RESP 18; O2SAT 97
[2019-03-07 10:57] VITALS: BP 129/77; BP 137/92; PULSE 72; RESP 16; TEMP 36.6; O2SAT 96
[2019-03-07 11:25] VITALS: BP 137/92
== END 2019-03-07 11:37 | disposition home or self-care (01) ==
LOC: EN 09:27 → AC 09:27
PROVIDERS: Family Provider Family Medicine Geriatric Medicine; PCP Family Medicine Geriatric Medicine; Referring Provider Family Medicine Geriatric Medicine; Visit Provider Surgery
PROC: 0DJ08ZZ Inspection of Upper Intestinal Tract, Via Natural or Artificial Opening Endoscopic (ICD-10-PCS; CPT 43235; principal; 2019-03-07 10:25)
DX: T18.128A Food in esophagus causing other injury, initial encounter (principal); K29.70 Gastritis, unspecified, without bleeding; K44.9 Diaphragmatic hernia without obstruction or gangrene; R13.14 Dysphagia, pharyngoesophageal phase; K62.3 Rectal prolapse; K21.9 Gastro-esophageal reflux disease without esophagitis; F32.9 Major depressive disorder, single episode, unspecified; I10 Essential (primary) hypertension; J44.9 Chronic obstructive pulmonary disease, unspecified; M51.36 Other intervertebral disc degeneration, lumbar region; G40.909 Epilepsy, unspecified, not intractable, without status epilepticus; G25.81 Restless legs syndrome; G47.33 Obstructive sleep apnea (adult) (pediatric); E78.00 Pure hypercholesterolemia, unspecified; E03.9 Hypothyroidism, unspecified; Z79.82 Long term (current) use of aspirin; Z79.899 Other long term (current) drug therapy; Z87.891 Personal history of nicotine dependence; Z80.0 Family history of malignant neoplasm of digestive organs
CPT/HCPCS: 43239; 88305; 88342; J7120

== ENCOUNTER → 2019-04-04 13:19 | Outpatient (CLI) | payer MEDICARE, SELFPAY ==
[2019-03-07 09:50] VITALS: BMI 27.2
--- NOTE | 2019-04-04 13:22 | NM_ITS ---
CLINICAL: 68-year-old female with reported history of clinical gastroparesis. SEMI-SOLID PHASE 99m Tc SULFUR COLLOID GASTRIC EMPTYING STUDY COMPARISON: None available FINDINGS: The patient was administered 1.0 mCi of 99m Tc sulfur colloid mixed with oatmeal and consumed per os. Image acquisitions in the anterior-posterior projections for a total of 60 minutes. There is prompt visualization of the stomach. There is no gastroesophageal reflux identified. The T1/2 linear fit was calculated to be 32.28 minutes, (Normal: 12-56 minutes). NM/Gastric Emptying Study IMPRESSION: 1. NORMAL 99m Tc sulfur colloid semi-solid phase (oatmeal) gastric emptying imaging examination. A. There is normal and preserved semi-solid phase gastric emptying compared to normal controls. (Maria Del Carmen et al, J Nucl Med Tech 38: 186, 2010). Electronically Signed: Tomi Suarez DO at 23:14 EDT Tel , Service support ,
== END ==
PROVIDERS: Family Provider Family Medicine Geriatric Medicine; PCP Family Medicine Geriatric Medicine; Referring Provider Physician Assistant; Visit Provider Physician Assistant
DX: R13.10 Dysphagia, unspecified (principal)
CPT/HCPCS: 78264; A9541

== ENCOUNTER → 2019-05-21 14:53 | Outpatient (CLI) | payer MEDICARE, SELFPAY ==
[2019-04-06 15:07] VITALS: BMI 27.2
[2019-05-21 17:38] LABS: Absolute Lymphocyte Count 1.81 X10^3/uL (0.83-4.51); Absolute Neutrophil Count 3.2 X10^3/uL (2.0-7.7); Basophil# 0.07 X10^3/uL; Basophil% 1.2 % (0-1); Eosinophil# 0.23 X10^3/uL; Eosinophils% 3.9 % (0-5); Hematocrit 43.1 % (37-47); Hemoglobin 13.6 g/dL (12.0-15.0); Lymphocyte # 1.81 X10^3/ul (4.0); Lymphocyte % 30.3 % (19-41); Mean Corp Hgb Conc 31.6 g/dL (32-36); Mean Corpuscular Hgb 31.1 pg (27.0-32.0); Mean Corpuscular Volume 98.4 fL (81-99); Mean Platelet Vol. 9.9 fl (6.2-12.0); Monocyte# 0.68 X10^3/uL; Monocyte% 11.4 % (0-10); NRBC Flagged by Analyzer 0 % (0-5); Neutrophil # 3.16 X10^3/uL (2.7-7.7); Neutrophil % 52.9 % (47-70); Platelet Count 256 K/mm3 (150-450); RBC Distribution Width CV 13.2 % (11.6-14.6); Red Blood Count 4.38 M/mm3 (4.2-5.4)
[2019-05-21 18:06] LABS: ALB/GLOB Ratio 0.9 RATIO (0.9-2.4); AST(SGOT) 20 U/L (15-37); Alanine Aminotransfer ALT/SGPT 27 U/L (13-56); Albumin, Serum 3.4 g/dL (3.2-5.0); Alkaline Phosphatase 79 U/L (45-117); Anion Gap 6 (5-15); BUN 13 mg/dL (7-18); BUN/Creat Ratio 18.6 RATIO (10-20); Calcium,Total 8.7 mg/dL (8.5-10.1); Chloride 106 mmol/L (98-107); EST Glomerular Filtration Rate 88 mL/min (>60); Est Glom Filt Rate - Afr Amer 107 mL/min (>60); Globulin 3.7 g/dL (2.2-4.2); Glucose 106 mg/dL (74-106); Potassium 4.3 mmol/L (3.5-5.1); Protein, Total 7.1 g/dL (6.4-8.2); Sodium Level 141 mmol/L (136-145)
[2019-05-22 10:05] LABS: Vitamin D,25 Hydroxy 22.4 ng/mL (29.95-100.01)
== END ==
PROVIDERS: Family Provider Family Medicine Geriatric Medicine; PCP Family Medicine Geriatric Medicine; Visit Provider Family Medicine Geriatric Medicine
DX: E55.9 Vitamin D deficiency, unspecified (principal); I10 Essential (primary) hypertension
CPT/HCPCS: 36415; 80053; 82306; 84443; 85025

== ENCOUNTER 2019-06-26 13:45 | Emergency (ER) | payer MEDICARE, SELFPAY ==
[2019-04-06 15:07] VITALS: BMI 27.2
[2019-06-26 13:47] VITALS: BP 115/62; PULSE 84; RESP 18; TEMP 37.2; O2SAT 96; BMI 30.4
--- NOTE | 2019-06-26 15:15 | EKG12_ITS ---
Test Reason : Blood Pressure : / mmHG Vent. Rate : 078 BPM Atrial Rate : 078 BPM P-R Int : 150 ms QRS Dur : 094 ms QT Int : 392 ms P-R-T Axes : 064 029 048 degrees QTc Int : 446 ms Normal sinus rhythm Normal ECG Confirmed by GREGORY QUESADA ([id number]), scientific publications editor GOPI RAMIREZ ([id number]) on 06/28/2019 10:49:59 AM Referred By: MALLY Confirmed By:GREGORY QUESADA
--- NOTE | 2019-06-26 15:15 | CT_ITS ---
STUDY: CT ABDOMEN AND PELVIS WITHOUT CONTRAST REASON FOR EXAM: Female, 68 years old. Abdominal pain nausea vomiting RADIATION DOSAGE (If Supplied By Facility): CTDIvol = ( 15.89 ) mGy, DLP = ( 802.05 ) mGycm TECHNIQUE: Transaxial images were obtained from the dome of the diaphragm to the symphysis pubis without oral contrast, and without intravenous contrast. Sagittal and coronal images were reconstructed. Individualized dose optimization techniques were used for this CT. COMPARISON: 08 January 2019, 12 August 2018 FINDINGS: Examination is limited due to lack of IV contrast. Diagnostic information is available. The visualized lung bases are unremarkable. There is a small hiatal hernia. Normal liver. There is cholecystectomy.. There is stable extrahepatic biliary dilation. Intrahepatic biliary dilation cannot be evaluated but is probably present. Normal spleen. Normal pancreas. Normal bilateral adrenal glands. Normal right kidney. Normal left kidney. Examination of the gastric intestinal tract is limited due to lack of IV contrast, cleansing and therapeutic distention. There is no intestinal obstruction. There is sigmoid diverticulosis. There is possible large rectal/perineal mass which is evaluated in limited fashion. Normal abdominal aorta. Normal inferior vena cava. Normal retroperitoneum. Normal urinary bladder. There is a small umbilical hernia. There is grade 1 degenerative anterolisthesis of L4 and L5 with spondylotic severe canal stenosis. There are no osseous destructive lesions. There is right total hip replacement. CT/Abdomen/Pelvis without Cont IMPRESSION: 1. Anal/rectal/perineal mass/lesion, limited assessment. Refer to endoscopy and visual inspection. CT with contrast can be utilized for further characterization. 2. Severe thecal sac stenosis at the L4-L5. Electronically Signed: Navin Shahid, at 16:13 EST Tel , Service support ,
--- NOTE | 2019-06-26 15:28 | NURSING ---
CHEMISTRIES HEMOLIZED
[2019-06-26] MEDS: Morphine 4 MG/ML Syringe IV (15:37)
[2019-06-26] MEDS: 0.9% Normal Saline 1,000 ML 1000 ML IV (15:37)
[2019-06-26] MEDS: Ondansetron 4 MG/2 ML Vial IV (15:37)
--- NOTE | 2019-06-26 15:44 | NURSING ---
CBCD CLOTTED, NEEDS REDRAWN
--- NOTE | 2019-06-26 15:44 | ED.VISSUMM ---
- ER Visit Summary Date of Service: 06/26/19 Chief Complaint: Abdominal pain, vomiting, and diarrhea History of Present Illness: The patient is a [address] Veliz. She reports that she has abdominal pain that began yesterday and is gradually gotten worse. It is a crampy epigastric pain that is 10 out of 10 in severity. Is worsened by laying down. Is relieved by moving around. She reports she is been nauseated vomited twice. No blood or emesis. No coffee-ground emesis. She is also had 2 episodes of diarrhea. No blood in her stools or black tarry stools. She does complain of dysuria. She denies any hematuria or frequency. Patient reports she has had similar symptoms previously a long time ago. Patient denies sick contacts. Has not been camping out of the country. No possible bad food exposure. Does not drink well water. No recent antibiotic use. Physical Examination: Vitals: Stable. Afebrile. General: Well-nourished and well-developed. Head: Normocephalic atraumatic. Neck: Supple, no lymphadenopathy. No JVD. Nontender. Cardiovascular: Regular rate and rhythm. No murmurs. Respiratory: No respiratory distress. Clear to auscultation bilaterally. Abdominal: Soft, mild epigastric tenderness to palpation, nondistended, normal bowel sounds. No guarding, rebound, or peritoneal signs. Back: Mild left CVA tenderness. Extremities: Nontender, no edema. Skin: Normal color, no rash. Neurologic: Alert and oriented ?3. Cranial nerves II through XII are intact. Normal strength and sensation. Psych: Depressed affect. Test Results: EKG is sinus at [address] changes. Is unchanged from December of this year. CBC is normal. Chem-7 shows a chloride of 109. LFTs are normal. UA is negative. Troponin is negative. Phenobarbital level is 14.7. Clinical Impression(s) from Imaging Studies Abdomen/Pelvis CT 06/26/19 15:15 IMPRESSION: 1. Anal/rectal/perineal mass/lesion, limited assessment. Refer to endoscopy and visual inspection. CT with contrast can be utilized for further characterization. 2. Severe thecal sac stenosis at the L4-L5. Electronically Signed: Navin Shahid, at 16:13 EST Tel , Service support , Emergency Department Course and Treatment: Patient had an IV placed. She was given morphine and Zofran IV. She is resting more comfortably. When the CT return I discussed with the patient the results. She reports that she has a history of rectal prolapse. She states that he had prolapse 2 days ago and typically resolves after 3 days. On exam there is what appears to be fleshy external hemorrhoids. I do not appreciate any rectal prolapse. The area is tender to palpation. Treatment Plan: Patient is in pain management and sees Dr. Andujar. She is on methadone currently. She understands that she will be not given any other opiate-based medications. She was discussed with Dr. Potter who reports that the patient has been referred to a colorectal specialist for her rectal prolapse in the past. I discussed this with the patient she is instructed to follow-up with this person soon as possible. She is instructed to follow-up with Dr. Veliz for further evaluation of her abdominal pain. Disposition: To home in improved and stable condition. Impression: 1. Abdominal pain, uncertain cause. 2. External hemorrhoids. This note was generated with [employer] dictation software. It may contain incorrect words, spelling, and punctuation that were not noted in review of the chart prior to signing ED Disposition - Plan for ED Patient: Disposition: Home or Assisted Living Instructions: ABDOMINAL PAIN, Unknown Cause, (Female), Rectal Prolapse Referrals: Patel Veliz Chi, MD [Primary Care Provider] - 1-2 Days if not improving Daniel Taylor MD [STAFF PHYSICIAN] - Additional Instructions: call Dr. Taylor's office to get the name of the colorectal specialist to see for your rectal prolapse.
[2019-06-26 16:02] LABS: AST(SGOT) 23 U/L (15-37); Alanine Aminotransfer ALT/SGPT 28 U/L (13-56); Albumin, Serum 3.6 g/dL (3.2-5.0); Alkaline Phosphatase 95 U/L (45-117); Anion Gap 5 (5-15); BUN 11 mg/dL (7-18); BUN/Creat Ratio 18.8 RATIO (10-20); Chloride 109 mmol/L (98-107); Creatinine, Serum 0.59 mg/dL (0.55-1.02); EST Glomerular Filtration Rate 108 mL/min (>60); Est Glom Filt Rate - Afr Amer 131 mL/min (>60); Estimated Creatinine Clearance 47.78 ml/min; Globulin 3.7 g/dL (2.2-4.2); Glucose 100 mg/dL (74-106); Potassium 3.7 mmol/L (3.5-5.1); Protein, Total 7.3 g/dL (6.4-8.2); Sodium Level 141 mmol/L (136-145)
[2019-06-26 16:13] LABS: Absolute Lymphocyte Count 1.84 X10^3/uL (0.83-4.51); Absolute Neutrophil Count 4.9 X10^3/uL (2.0-7.7); Basophil# 0.03 X10^3/uL; Basophil% 0.4 % (0-1); Eosinophil# 0.11 X10^3/uL; Eosinophils% 1.5 % (0-5); Hematocrit 42.6 % (37-47); Hemoglobin 13.9 g/dL (12.0-15.0); Lymphocyte # 1.84 X10^3/ul (4.0); Lymphocyte % 24.5 % (19-41); Mean Corp Hgb Conc 32.6 g/dL (32-36); Mean Corpuscular Hgb 30.7 pg (27.0-32.0); Mean Platelet Vol. 8.5 fl (6.2-12.0); Monocyte# 0.59 X10^3/uL; Monocyte% 7.8 % (0-10); NRBC Flagged by Analyzer 0 % (0-5); Neutrophil # 4.92 X10^3/uL (2.7-7.7); Neutrophil % 65.4 % (47-70); Platelet Count 214 K/mm3 (150-450); RBC Distribution Width CV 12.6 % (11.6-14.6); RBC Distribution Width SD 43.7 fl (35.1-43.9); Red Blood Count 4.53 M/mm3 (4.2-5.4); White Blood Count 7.5 K/mm3 (4.4-11.0)
[2019-06-26 17:07] LABS: Mucous, Urine 0 SEEN /hpf (<or=2+); Red Blood Cells-Urine 0 SEEN /hpf (0-5); White Blood Cells 0 SEEN /hpf (0-5)
[2019-06-26 17:13] VITALS: BP 137/75; PULSE 86; RESP 16; O2SAT 92
[2019-06-26 17:14] LABS: Color, Urine Yellow (Yellow); Glucose, Dipstick Normal (Normal); Ketone-Dipstick 50 mg/dl (Negative); Leukocyte Esterase-Dipstick Negative /ul (Negative); Nitrite-Dipstick Negative (Negative); Occult Blood-Urine Negative /ul (Negative); Protein-Dipstick Negative (Negative); Urine Bilirubin Dipstick Negative (Negative); Urine Clarity Clear (Clear); Urine Urobilinogen Normal (Normal)
[2019-06-26 17:25] LABS: Bacteria RARE /hpf (None Seen); Squamous Epithelial Cells - UA 0-5 SEEN /hpf (5-10)
--- NOTE | 2019-06-26 19:30 | ED.RN ---
pt son contacted for ride. message left at [phone] and this RN returned call at 1930. son states he is driving from [place] and will pick pt up around 2100. son states there is no one else who can transport pt at this time. pt informed of plan.
== END 2019-06-26 21:00 | disposition home or self-care (01) ==
PROVIDERS: Emergency Provider Emergency Medicine; Family Provider Family Medicine Geriatric Medicine; PCP Family Medicine Geriatric Medicine
DX: R10.13 Epigastric pain (principal); R11.2 Nausea with vomiting, unspecified; K64.4 Residual hemorrhoidal skin tags; K62.3 Rectal prolapse
CPT/HCPCS: 74176; 80053; 80184; 81001; 84484; 85025; 93005; 96361; 96374; 96375; 99285; J7030; A4216; J2405

== ENCOUNTER 2019-08-08 12:08 | Inpatient (IN) | payer MEDICARE, MEDICAID, SELFPAY ==
[2019-08-08] VITALS (10 sets, daily range): BP systolic 110–133; BP diastolic 68–109; PULSE 73–115; RESP 17–27; TEMP 36.8–37.2; O2SAT 95–98; BMI 30.3; BMI 29.2; BMI 29.3
--- NOTE | 2019-08-08 12:18 | EKG12_ITS ---
Test Reason : SOB Blood Pressure : / mmHG Vent. Rate : 112 BPM Atrial Rate : 112 BPM P-R Int : 154 ms QRS Dur : 088 ms QT Int : 334 ms P-R-T Axes : 063 034 070 degrees QTc Int : 455 ms Sinus tachycardia Low voltage QRS Borderline ECG Confirmed by BLUE LEACH, GO ([id number]), deputy editor in chief WESLY CASTAÑEDA ([id number]) on 08/13/2019 2:26:39 PM Referred By: CALVIN Confirmed By:SAMI MCARTHUR MD
[2019-08-08] MEDS: Ipratropium/Albuterol Sulfate 3 ML AMPUL.NEB INHALATION ×3 (12:23→19:49)
[2019-08-08] MEDS: MethylPREDNISolone 125 MG/2 ML Vial IV (12:35)
--- NOTE | 2019-08-08 12:40 | RAD_ITS ---
STUDY: X-RAY CHEST REASON FOR EXAM: Female, 68 years old. COUGH, CHEST PAIN, WEAKNESS; -- COPD -- H/O SEIZURE TECHNIQUE: Single AP portable view of the chest. COMPARISON: Comparison is made with prior study dated January 12, 2019. FINDINGS: EKG electrodes are seen. Hyperinflation. Scattered calcified granulomas. There is no demonstrated pleural abnormality. Normal size heart. Normal mediastinum and denae. Normal visualized pulmonary arteries. Normal visualized aortic arch and descending thoracic aorta. There are diffuse degenerative changes of the visualized thoracic spine. Normal visualized ribs, clavicles, and shoulders. There is no demonstrated abnormality of the visualized soft tissue structures of the upper abdomen. RAD/Chest 1 View (Portable) IMPRESSION: Hyperinflation. No acute abnormality is seen. Electronically Signed: Isaias Munroe, at 13:05 EST , Service support ,
--- NOTE | 2019-08-08 12:45 | ED.VIS.GEN ---
History of Present Illness Chief Complaint: Shortness of Breath Informant: Patient Onset: Days Context: Gradual Onset Timing: Continuous Current Severity: Moderate Maximum Severity: Moderate Narrative: The patient is a 68-year-old female that presents to the emergency department with cough and shortness of breath. Patient has a history of COPD and is on 3 L of oxygen at baseline. She states over the past 3 days, she has had chest tightness, cough with productive sputum, fevers, and chills. She states that today, her shortness of breath was worsening. She is unsure of the last time that she was on antibiotics. She did get a flu shot this year. She denies any recent sick contacts. She denies weight gain or orthopnea. She denies any other systemic symptoms. Prior similar symptoms: Yes Recent Illness/Hospitalization: No Past Medical History - Allergies and Home Meds Allergies/Adverse Reactions: Allergies codeine Allergy (Mild, Verified 08/08/19 12:09) HIVES Penicillins Allergy (Verified 08/08/19 12:09) Anaphylaxis Primary Care Physician: Patel Veliz Chi, MD [Primary Care Provider] - Prior records reviewed: Yes Past Medical History: - - COPD, depression Surgical History: appendectomy, cholecystectomy, - - Fractured right ankle, carpal tunnel surgery, removal of teeth, right ovariectomy and fallopian tube removal. Smoking Status: Former smoker - Family History Maternal Family History: Family History (Last Reviewed 04/15/19 @ 11:09 by Daniel Taylor MD) Mother Diabetes Heart disease Hypertension CAD (coronary artery disease) CVA (cerebral vascular accident) Thyroid disorder Father Colon cancer Family History: Reports: Diabetes Paternal Family History: Family History (Last Reviewed 04/15/19 @ 11:09 by Daniel Taylor MD) Mother Diabetes Heart disease Hypertension CAD (coronary artery disease) CVA (cerebral vascular accident) Thyroid disorder Father Colon cancer Family History: Reports: Cancer Sibling Family History: Family History (Last Reviewed 04/15/19 @ 11:09 by Daniel Taylor MD) Mother Diabetes Heart disease Hypertension CAD (coronary artery disease) CVA (cerebral vascular accident) Thyroid disorder Father Colon cancer Family History: Reports: No pertinent history Review of Systems General: Reports: Chills Eyes: Denies: Visual changes - bilaterally, Diplopia ENT: Denies: Rhinorrhea, Sore throat Cardiovascular: Denies: Chest pain, Palpitations Respiratory: Reports: Dyspnea, Cough, Sputum Gastrointestinal: Denies: Abdominal pain, Nausea, Vomiting, Diarrhea, Melena, Hematochezia Genitourinary: Denies: Dysuria, Hematuria, Frequency Musculoskeletal: Denies: Back pain, Extremity Pain Skin: Denies: Rash, Wounds Neurological: Denies: Headache, Weakness, Numbness Physical Exam Vital Signs/Narrative: Vital Signs Temp Pulse Resp BP Pulse Ox 08/08/19 12:43 95 08/08/19 12:33 115 H 27 H 133/94 H 95 08/08/19 12:30 73 20 H 08/08/19 12:11 98.5 F 115 H 26 H 119/109 H 96 Inital Vital Signs reviewed: Yes General: Well nourished, Well developed, No Acute Distress Head: Normocephalic, Atraumatic Eyes: Perrl, EOMI ENT: Moist mucous membranes, No rhinorrhea Neck: Supple, Nontender Cardiovascular: Regular rate, Regular rhythm, No murmurs Respiratory: No distress, Chest nontender, Rales, Wheezing Abdomen: Soft, Nontender, Nondistended, Normal bowel sounds Back: Nontender, Normal Inspection Extremities: Nontender, No edema Skin: Normal color, No rash Neurological: Alert, Oriented x3, Cranial nerves II-XII grossly intact, Normal Strength, Normal Sensation Psychological: Normal affect, Normal Mood Diagnostic/Tx/Re-eval Chest X-Ray - ED: 2 View, Chronic Changes, No Infiltrates Clinical Impression(s) from Imaging Studies Chest X-Ray 08/08/19 12:40 IMPRESSION: Hyperinflation. No acute abnormality is seen. Electronically Signed: Isaias Munroe, at 13:05 EST , Service support , Abnormal Lab Results 08/08/19 08/08/19 08/08/19 12:35 12:35 12:35 WBC 11.3 H RBC 4.98 Hgb 15.1 H Hct 46.9 MCV 94.2 MCH 30.3 MCHC 32.2 RDW Std Deviation 45.7 H RDW Coeff of Jordin 13.2 Plt Count 239 MPV 8.6 Immature Gran % (Auto) 0.400 Neut % (Auto) 82.3 H Lymph % (Auto) 10.1 L [place] % (Auto) 5.9 Eos % (Auto) 1.0 Baso % (Auto) 0.3 Absolute Neuts (auto) 9.3 H Absolute Lymphs (auto) 1.14 Nucleated RBC % 0 Sodium 140 Potassium 4.0 Chloride 107 Carbon Dioxide 28.0 Anion Gap 5 BUN 11 Creatinine 0.72 Estim Creat Clear Calc 47.78 Est GFR (MDRD) Af Amer 103 Est GFR (MDRD) Non-Af 85 BUN/Creatinine Ratio 15.2 Glucose 128 H Lactic Acid 1.9 Calcium 9.0 Troponin I < 0.015 B-Natriuretic Peptide 08/08/19 12:35 WBC RBC Hgb Hct MCV MCH MCHC RDW Std Deviation RDW Coeff of Jordin Plt Count MPV Immature Gran % (Auto) Neut % (Auto) Lymph % (Auto) [place] % (Auto) Eos % (Auto) Baso % (Auto) Absolute Neuts (auto) Absolute Lymphs (auto) Nucleated RBC % Sodium Potassium Chloride Carbon Dioxide Anion Gap BUN Creatinine Estim Creat Clear Calc Est GFR (MDRD) Af Amer Est GFR (MDRD) Non-Af BUN/Creatinine Ratio Glucose Lactic Acid Calcium Troponin I B-Natriuretic Peptide 10.4 - Rhythm Strip Rhythm Strip: Sinus Tach Rate: 102 Ectopy: None - EKG Initial EKG Interpretation: No Acute Injury Pattern, Sinus Tachycardia Prior: Unchanged - Medical Decision Making The patient presents to the emergency department with cough and shortness of breath. She does have history of COPD and is on 3 L of oxygen at baseline. She is had persistent bronchospasm, tachypnea, subjective fevers, and productive sputum. Septic work-up was pursued. EKG was obtained which showed sinus tachycardia without acute ischemia. Screening labs do show mild leukocytosis, but otherwise unremarkable. Cardiac enzymes were negative. X-ray does not show focal infiltrative process. The patient was treated with Solu-Medrol and breathing treatments. She still has persistent bronchospasm and increased work of breathing. I do feel that this is likely an infectious process contributing to COPD exacerbation. At this point, given the patient's lack of rebound from therapy, I do feel that she would benefit from admission. Impression 1. COPD exacerbation with persistent bronchospasm ED Disposition - Plan for ED Patient: Referrals: Patel Veliz Chi, MD [Primary Care Provider] -
[2019-08-08 12:48] LABS: Absolute Lymphocyte Count 1.14 X10^3/uL (0.83-4.51); Absolute Neutrophil Count 9.3 X10^3/uL (2.0-7.7); Basophil# 0.03 X10^3/uL; Basophil% 0.3 % (0-1); Eosinophil# 0.11 X10^3/uL; Hematocrit 46.9 % (37-47); Hemoglobin 15.1 g/dL (12.0-15.0); Lymphocyte # 1.14 X10^3/ul (4.0); Lymphocyte % 10.1 % (19-41); Mean Corp Hgb Conc 32.2 g/dL (32-36); Mean Corpuscular Hgb 30.3 pg (27.0-32.0); Mean Corpuscular Volume 94.2 fL (81-99); Mean Platelet Vol. 8.6 fl (6.2-12.0); Monocyte# 0.67 X10^3/uL; Monocyte% 5.9 % (0-10); NRBC Flagged by Analyzer 0 % (0-5); Neutrophil # 9.34 X10^3/uL (2.7-7.7); Neutrophil % 82.3 % (47-70); Platelet Count 239 K/mm3 (150-450); RBC Distribution Width CV 13.2 % (11.6-14.6); RBC Distribution Width SD 45.7 fl (35.1-43.9); Red Blood Count 4.98 M/mm3 (4.2-5.4); White Blood Count 11.3 K/mm3 (4.4-11.0)
[2019-08-08 13:06] LABS: Anion Gap 5 (5-15); BUN 11 mg/dL (7-18); BUN/Creat Ratio 15.2 RATIO (10-20); Chloride 107 mmol/L (98-107); Creatinine, Serum 0.72 mg/dL (0.55-1.02); EST Glomerular Filtration Rate 85 mL/min (>60); Est Glom Filt Rate - Afr Amer 103 mL/min (>60); Estimated Creatinine Clearance 47.78 ml/min; Glucose 128 mg/dL (74-106); Sodium Level 140 mmol/L (136-145)
[2019-08-08 13:07] LABS: Lactic Acid 1.9 mmol/L (0.4-1.9)
[2019-08-08 13:20] LABS: BNP,B-Type NATRIURETIC PEPTIDE 10.4 pg/mL (0-100)
--- NOTE | 2019-08-08 16:07 | PCM.HP.STD ---
<Maryuri Medeiros - Last Filed: 08/08/19 16:35> Problem List (1) History of bilateral cataract extraction Status: Chronic (2) History of blepharoplasty Status: Chronic (3) History of right salpingo-oophorectomy Status: Chronic (4) Status post ORIF of fracture of ankle Status: Chronic (5) History of cystoscopy Status: Chronic (6) History of bilateral carpal tunnel release Status: Chronic (7) Stress bladder incontinence, female Status: Chronic (8) Urge incontinence Status: Chronic (9) Chronic constipation Status: Chronic (10) Rectal prolapse Status: Acute (11) Diarrhea Status: Acute (12) Grade III hemorrhoids Status: Chronic (13) Hypothyroidism Status: Chronic (14) Glaucoma Status: Chronic (15) Obstipation Status: Chronic (16) Edentulous Status: Chronic (17) Chronic hypoxemic respiratory failure Status: Chronic (18) Suicide attempt Status: Chronic (19) Phenytoin toxicity Status: Resolved (20) Tobacco use Status: Chronic (21) Depression Status: Chronic (22) Insomnia Status: Chronic Comment: She takes Temazepam every night for sleep, prescribed by Dr. Veliz (23) Hypertension Status: Chronic (24) Physical debility Status: Chronic (25) Degenerative disc disease, lumbar Status: Chronic (26) Pain, chronic Status: Chronic Qualifiers: Chronic pain type: chronic pain syndrome Qualified Code(s): G89.4 - Chronic pain syndrome (27) Seizure disorder Status: Chronic (28) Restless leg syndrome Status: Chronic (29) COPD (chronic obstructive pulmonary disease) Status: Chronic Comment: 1 ppd now smoker 4 ppd (30) Obstructive sleep apnea Status: Chronic Comment: non-compliant with CPAP but has oxygen to wear at night (31) Smokes with greater than 40 pack year history Status: Chronic History of Present Illness Date of Admission: 08/08/19 Chief Complaint: Shortness of breath. The patient is a 68 year old F who presents the emergency room due to shortness of breath. Patient reports ongoing upper respiratory infection for the past week with increased shortness of breath, cough and intermittent fever/chills. She also reports intermittent nausea without emesis. Denies diarrhea. Patient states she is not coughing up any sputum. She has not required increased oxygen supplementation. She chronically wears 3 L nasal cannula at baseline due to chronic COPD. She has a past medical history of COPD with chronic hypoxic respiratory failure, history of seizures, depression and anxiety with history of suicide attempt, tobacco dependence, chronic pain syndrome, chronic constipation, restless leg syndrome, hypertension, hyperlipidemia, hypothyroidism. Past Medical History Past Medical History (Chronic Problems): Chronic Problems History of bilateral cataract extraction (Chronic) History of blepharoplasty (Chronic) History of right salpingo-oophorectomy (Chronic) Status post ORIF of fracture of ankle (Chronic) History of cystoscopy (Chronic) History of bilateral carpal tunnel release (Chronic) Stress bladder incontinence, female (Chronic) Urge incontinence (Chronic) Chronic constipation (Chronic) Grade III hemorrhoids (Chronic) Hypothyroidism (Chronic) Glaucoma (Chronic) Obstipation (Chronic) Edentulous (Chronic) Chronic hypoxemic respiratory failure (Chronic) Suicide attempt (Chronic) Tobacco use (Chronic) Depression (Chronic) Insomnia (Chronic) She takes Temazepam every night for sleep, prescribed by Dr. Veliz Hypertension (Chronic) Physical debility (Chronic) Degenerative disc disease, lumbar (Chronic) Pain, chronic (Chronic) Seizure disorder (Chronic) Restless leg syndrome (Chronic) COPD (chronic obstructive pulmonary disease) (Chronic) 1 ppd now smoker 4 ppd Obstructive sleep apnea (Chronic) non-compliant with CPAP but has oxygen to wear at night Smokes with greater than 40 pack year history (Chronic) Medical History: Medical History (Last Reviewed 04/15/19 @ 11:09 by Daniel Taylor MD) Depression (Chronic) F32.9 Insomnia (Chronic) G47.00 She takes Temazepam every night for sleep, prescribed by Dr. Veliz Hypertension (Chronic) I10 Physical debility (Chronic) R53.81 Degenerative disc disease, lumbar (Chronic) M51.36 Pain, chronic (Chronic) G89.29 Seizure disorder (Chronic) G40.909 Restless leg syndrome (Chronic) COPD (chronic obstructive pulmonary disease) (Chronic) J44.9 1 ppd now smoker 4 ppd Obstructive sleep apnea (Chronic) G47.33 non-compliant with CPAP but has oxygen to wear at night Smokes with greater than 40 pack year history (Chronic) F17.210 Gastritis K29.70 Allergies codeine Allergy (Mild, Verified 08/08/19 12:09) HIVES Penicillins Allergy (Verified 08/08/19 12:09) Anaphylaxis Home Medications: Ambulatory Orders Medication Instructions Recorded Aspirin [Aspirin EC] 81 mg PO DAILY 01/07/19 Duloxetine HCl 20 mg PO DAILY 01/07/19 Levothyroxine [Synthroid] 50 mcg PO DAILY 01/07/19 Mirabegron [Myrbetriq] 50 mg PO DAILY 01/07/19 Multivitamins,Therapeutic 1 tab PO DAILY 01/07/19 [Multivitamin] Oxcarbazepine [Trileptal] 600 mg PO BID 01/07/19 Phenobarbital 32.4 mg PO BID 01/07/19 Potassium Chloride [K-Dur] 20 meq PO BID 01/07/19 Ranitidine [Zantac] 300 mg PO DAILY 01/07/19 Risperidone 0.25 mg PO DAILY 01/07/19 Sennosides [Senna] 2 tab PO BID 01/07/19 Temazepam 2 tab PO QHS 01/07/19 calcium carbonate 500 mg calcium 500 mg PO BID 02/21/19 (1,250 mg) tablet mirtazapine 7.5 mg tablet 7.5 mg PO QHS tab 02/21/19 Latanoprost/Pf [Latanoprost 0.005% 1 drp EACHEYE QHS 08/08/19 Eye Drop] Methadone HCl 10 mg PO TID 08/08/19 Methylnaltrexone [place] [Relistor] 150 mg PO DAILY 08/08/19 Nicotine [Nicoderm Cq] 1 patch TOPICAL DAILY 08/08/19 Ropinirole HCl 2 mg PO QHS 08/08/19 Surgical History: Surgical History (Last Reviewed 08/08/19 @ 16:13 by MAURICIO Brown) History of bilateral cataract extraction (Chronic) Z98.41, Z98.42 History of blepharoplasty (Chronic) Z98.890 History of right salpingo-oophorectomy (Chronic) Z90.79, Z90.721 Status post ORIF of fracture of ankle (Chronic) Z98.890, Z87.81 History of cystoscopy (Chronic) Z98.890 History of bilateral carpal tunnel release (Chronic) Z98.890 History of esophagogastroduodenoscopy (EGD) Onset Date: ~03/07/19 Z98.890 History of right hip replacement (Inactive) Z96.641 S/P appendectomy (Inactive) Z90.49 S/P laparoscopic cholecystectomy (Inactive) Z90.49 Surgical History: appendectomy, cholecystectomy, - - Fractured right ankle, carpal tunnel surgery, removal of teeth, right ovariectomy and fallopian tube removal. Psychiatric History: Anxiety, Depression - untreated SUB PRIOR History: No pertinent SUB PRIOR history Lives: Alone Smoking Status: Current every day smoker Tobacco Use: Cigarettes Alcohol: None Drugs: None - *Family History Maternal Family History: Family History (Last Reviewed 08/08/19 @ 16:14 by MAURICIO Brown) Mother Diabetes Heart disease Hypertension CAD (coronary artery disease) CVA (cerebral vascular accident) Thyroid disorder Father Colon cancer History Items: Diabetes Paternal Family History: Family History (Last Reviewed 08/08/19 @ 16:14 by MAURICIO Brown) Mother Diabetes Heart disease Hypertension CAD (coronary artery disease) CVA (cerebral vascular accident) Thyroid disorder Father Colon cancer History Items: Cancer Sibling Family History: Family History (Last Reviewed 08/08/19 @ 16:14 by MAURICIO Brown) Mother Diabetes Heart disease Hypertension CAD (coronary artery disease) CVA (cerebral vascular accident) Thyroid disorder Father Colon cancer History Items: - - Denies known significant sibling history including cardiac history. Review of Systems Constitutional: Reports: Chills, Fever, Malaise HEENT: Denies: Head Aches, Sinus Congestion, Sinus Drainage Cardiovascular: Denies: Chest Pain, Palpitations Respiratory: Reports: Cough, Shortness of Breath, Wheezing Gastrointestinal: Reports: Nausea. Denies: Abdominal Pain, Vomiting Genitourinary: Denies: Dysuria Musculoskeletal: Denies: Joint Pain, Joint Tenderness Skin: Denies: Rash, Wounds Neurological: Denies: Numbness, Tingling, Focal weakness Psychiatric: Reports: Anxiety, Depression Hematologic/ Lymphatic: Denies: Easy Bruising, Easy Bleeding VTE Information - Inpt Only VTE Present on Admission: No VTE Mechan Device Prophylaxis: None VTE Pharm Prophylaxis ordered?: Yes - Physical Exam Vitals/I&O's: Vital Signs Temp Pulse Resp BP Pulse Ox 98.9 F 102 H 20 H 110/96 H 96 08/08/19 15:17 08/08/19 15:17 08/08/19 15:17 08/08/19 15:17 08/08/19 15:17 Oxygen Flow Rate (L/min) 3 Oxygen Delivery Method Nasal Cannula Weight: 176 lb Body Mass Index (BMI) 29.2 General: Alert, Oriented x3, Cooperative HEENT: Atraumatic, PERRLA, EOMI, Normocephalic Neck: Supple, No JVD, Negative Carotid Bruits Lungs: Diminished, Wheezes Cardiovascular: Regular Rhythm, Normal S1, Normal S2, No murmurs, Tachycardic Abdomen: Bowel Sounds Present, Soft, Non Tender, Non-Distended Extremities: No clubbing, No cyanosis, No edema, Capillary Refill Less than 3 Seconds Skin: No rashes, No breakdown Musculoskeletal: No Tenderness to Palpation of Joints or Extremities Neurological: Cranial nerves II-XII grossly intact, Neuro grossly intact Psych/Mental Status: Normal Affect, Appropriate Microbiology Past 72 Hours 08/08/19 12:25 Mucosa - Nasopharyngeal Influenza Types A,B Direct FA (JASWANT) - Final Laboratory Results 08/08/19 12:35: WBC 11.3 H, RBC 4.98, Hgb 15.1 H, Hct 46.9, MCV 94.2, MCH 30.3, MCHC 32.2, RDW Std Deviation 45.7 H, RDW Coeff of Jordin 13.2, Plt Count 239, MPV 8.6, Immature Gran % (Auto) 0.400, Neut % (Auto) 82.3 H, Lymph % (Auto) 10.1 L, [place] % (Auto) 5.9, Eos % (Auto) 1.0, Baso % (Auto) 0.3, Absolute Neuts (auto) 9.3 H, Absolute Lymphs (auto) 1.14, Nucleated RBC % 0 08/08/19 12:35: Sodium 140, Potassium 4.0, Chloride 107, Carbon Dioxide 28.0, Anion Gap 5, BUN 11, Creatinine 0.72, Estim Creat Clear Calc 47.78, Est GFR (MDRD) Af Amer 103, Est GFR (MDRD) Non-Af 85, BUN/Creatinine Ratio 15.2, Glucose 128 H, Calcium 9.0, Troponin I < 0.015 08/08/19 12:35: Lactic Acid 1.9 08/08/19 12:35: B-Natriuretic Peptide 10.4 Current Medications Acetaminophen (Tylenol) 650 mg PO Q6H PRN PRN PRN Reason: Pain Score 1-10/Temp > 100.7 F Albuterol/Ipratropium (Duoneb) 3 ml INHALATION Q4HWA.RT COUNT INCLUDES THE [facility] Aspirin (Ecotrin) 81 mg PO DAILYCM COUNT INCLUDES THE [facility] Calcium Carbonate (Os-Nolan 500) 500 mg PO BIDCM COUNT INCLUDES THE [facility] Duloxetine HCl (Cymbalta) 20 mg PO DAILY COUNT INCLUDES THE [facility] Enoxaparin Sodium (Lovenox) 40 mg SC DAILY COUNT INCLUDES THE [facility] Famotidine (Pepcid) 20 mg PO DAILY COUNT INCLUDES THE [facility] Sodium Chloride () 250 mls @ 15 mls/hr IV .[id number] PRN PRN Reason: Saline Flush Latanoprost (Xalatan Opthalmic) 1 drop EACH EYE QHS COUNT INCLUDES THE [facility] Levothyroxine Sodium (Synthroid) 50 mcg PO DAILY@0600 COUNT INCLUDES THE [facility] Methadone HCl () 10 mg PO TID COUNT INCLUDES THE [facility] Methylprednisolone (Solu-Medrol) 40 mg IV Q8 COUNT INCLUDES THE [facility] Mirabegron (Myrbetriq) 50 mg PO DAILY COUNT INCLUDES THE [facility] Mirtazapine (Remeron) 7.5 mg PO QHS COUNT INCLUDES THE [facility] Multivit[facility] ([facility]) [facility] Nicotine (Nicoderm Cq (Pbkc)) 21 mg TRANSDERM. DAILY COUNT INCLUDES THE [facility] Non-Formulary Medication (Methylnaltrexone [place]) 150 mg PO DAILY COUNT INCLUDES THE [facility] Oxcarbazepine (Trileptal) 600 mg PO BID COUNT INCLUDES THE [facility] Phenobarbital (Phenobarbital) 32.4 mg PO BID COUNT INCLUDES THE [facility] Potassium Chloride (K-Dur) [facility] Pramipexole Dihydrochloride (Mirapex) 1 mg PO QHS COUNT INCLUDES THE [facility] Risperidone (Risperdal) 0.25 mg PO DAILY COUNT INCLUDES THE [facility] Senna (Senokot) 2 tablet PO BID COUNT INCLUDES THE [facility] Sodium Chloride () 10 - 40 ml IV UD PRN PRN Reason: SALINE FLUSH Temazepam (Restoril) 30 mg PO QHS COUNT INCLUDES THE [facility] Assessment/Plan All Active Problems (Last Reviewed 04/15/19 @ 11:09 by Daniel Taylor MD) Rectal prolapse (Acute) Diarrhea (Acute) Phenytoin toxicity (Resolved) 1. Acute COPD exacerbation with chronic hypoxic respiratory failure-patient wears 3 L nasal cannula at baseline. Influenza negative. Check respiratory panel. Albuterol and DuoNeb aerosols. Chest x-ray without acute process. IV Solu-Medrol. Continue supplement oxygen to maintain O2 at or above 90%. Currently on baseline O2 requirements. 2. History of seizures-on phenobarbital, Trileptal. 3. Depression and anxiety with history of suicide attempt-stable. Continue duloxetine, mirtazapine, Risperdal, temazepam. 4. Tobacco dependence-encouraged cessation. Nicotine replacement patch. 5. Chronic pain syndrome-on methadone. 6. Chronic constipation-continue home bowel regimen including Relistor. 7. Restless leg syndrome-continue Requip regimen. 8. Hypertension-does not appear to be on regimen. BP stable. 9. Hyperlipidemia-not on statin. 10. Hypothyroidism-continue Synthroid regimen. DVT prophylaxis-Lovenox subcu This patient was seen by MAURICIO Brown under the supervision of Dr. Waldrop. <Abelardo Waldrop F - Last Filed: 08/08/19 17:16> History of Present Illness The patient is a 68 year old F [] Past Medical History Medical History: Medical History (Last Reviewed 04/15/19 @ 11:09 by Daniel Taylor MD) Depression (Chronic) F32.9 Insomnia (Chronic) G47.00 She takes Temazepam every night for sleep, prescribed by Dr. Veliz Hypertension (Chronic) I10 Physical debility (Chronic) R53.81 Degenerative disc disease, lumbar (Chronic) M51.36 Pain, chronic (Chronic) G89.29 Seizure disorder (Chronic) G40.909 Restless leg syndrome (Chronic) COPD (chronic obstructive pulmonary disease) (Chronic) J44.9 1 ppd now smoker 4 ppd Obstructive sleep apnea (Chronic) G47.33 non-compliant with CPAP but has oxygen to wear at night Smokes with greater than 40 pack year history (Chronic) F17.210 Gastritis K29.70 Allergies codeine Allergy (Mild, Verified 08/08/19 12:09) HIVES Penicillins Allergy (Verified 08/08/19 12:09) Anaphylaxis Surgical History: Surgical History (Last Reviewed 08/08/19 @ 16:13 by MAURICIO Brown) History of bilateral cataract extraction (Chronic) Z98.41, Z98.42 History of blepharoplasty (Chronic) Z98.890 History of right salpingo-oophorectomy (Chronic) Z90.79, Z90.721 Status post ORIF of fracture of ankle (Chronic) Z98.890, Z87.81 History of cystoscopy (Chronic) Z98.890 History of bilateral carpal tunnel release (Chronic) Z98.890 History of esophagogastroduodenoscopy (EGD) Onset Date: ~03/07/19 Z98.890 History of right hip replacement (Inactive) Z96.641 S/P appendectomy (Inactive) Z90.49 S/P laparoscopic cholecystectomy (Inactive) Z90.49 - *Family History Maternal Family History: Family History (Last Reviewed 08/08/19 @ 16:14 by MAUIRCIO Brown) Mother Diabetes Heart disease Hypertension CAD (coronary artery disease) CVA (cerebral vascular accident) Thyroid disorder Father Colon cancer Paternal Family History: Family History (Last Reviewed 08/08/19 @ 16:14 by MAURICIO Brown) Mother Diabetes Heart disease Hypertension CAD (coronary artery disease) CVA (cerebral vascular accident) Thyroid disorder Father Colon cancer Sibling Family History: Family History (Last Reviewed 08/08/19 @ 16:14 by MAURICIO Brown) Mother Diabetes Heart disease Hypertension CAD (coronary artery disease) CVA (cerebral vascular accident) Thyroid disorder Father Colon cancer - Physical Exam Vitals/I&O's: Vital Signs Temp Pulse Resp BP Pulse Ox 98.9 F 101 H 20 H 110/96 H 95 08/08/19 15:17 08/08/19 16:30 08/08/19 16:30 08/08/19 15:17 08/08/19 16:30 Oxygen Flow Rate (L/min) 3 Oxygen Delivery Method Nasal Cannula Weight: 176 lb Body Mass Index (BMI) 29.2 Microbiology Past 72 Hours 08/08/19 12:25 Mucosa - Nasopharyngeal Influenza Types A,B Direct FA (JASWANT) - Final Laboratory Results 08/08/19 12:35: WBC 11.3 H, RBC 4.98, Hgb 15.1 H, Hct 46.9, MCV 94.2, MCH 30.3, MCHC 32.2, RDW Std Deviation 45.7 H, RDW Coeff of Jordin 13.2, Plt Count 239, MPV 8.6, Immature Gran % (Auto) 0.400, Neut % (Auto) 82.3 H, Lymph % (Auto) 10.1 L, [place] % (Auto) 5.9, Eos % (Auto) 1.0, Baso % (Auto) 0.3, Absolute Neuts (auto) 9.3 H, Absolute Lymphs (auto) 1.14, Nucleated RBC % 0 08/08/19 12:35: Sodium 140, Potassium 4.0, Chloride 107, Carbon Dioxide 28.0, Anion Gap 5, BUN 11, Creatinine 0.72, Estim Creat Clear Calc 47.78, Est GFR (MDRD) Af Amer 103, Est GFR (MDRD) Non-Af 85, BUN/Creatinine Ratio 15.2, Glucose 128 H, Calcium 9.0, Troponin I < 0.015 08/08/19 12:35: Lactic Acid 1.9 08/08/19 12:35: B-Natriuretic Peptide 10.4 Current Medications Acetaminophen (Tylenol) 650 mg PO Q6H PRN PRN PRN Reason: Pain Score 1-10/Temp > 100.7 F Albuterol Sulfate (Ventolin Aerosols) 2.5 mg INHALATION Q2H PRN PRN PRN Reason: SHORTNESS OF BREATH Albuterol/Ipratropium (Duoneb) 3 ml INHALATION Q4HWA.RT COUNT INCLUDES [facility] Last Admin: 08/08/19 16:28 Dose: 3 ml Documented by: Aspirin (Ecotrin) 81 mg PO DAILYCM COUNT INCLUDES THE [facility] Benzonatate (Tessalon Perle) 100 mg PO TID PRN PRN PRN Reason: COUGH Calcium Carbonate (Os-Nolan 500) 500 mg PO BIDCM COUNT INCLUDES THE [facility] Last Admin: 08/08/19 16:34 Dose: 500 mg Documented by: Duloxetine HCl (Cymbalta) 20 mg PO DAILY COUNT INCLUDES THE [facility] Enoxaparin Sodium (Lovenox) 40 mg SC DAILY COUNT INCLUDES THE [facility] Famotidine (Pepcid) 20 mg PO DAILY COUNT INCLUDES THE [facility] Sodium Chloride () 250 mls @ 15 mls/hr IV .[id number] PRN PRN Reason: Saline Flush Latanoprost (Xalatan Opthalmic) 1 drop EACH EYE QHS COUNT INCLUDES THE [facility] Levothyroxine Sodium (Synthroid) 50 mcg PO DAILY@0600 COUNT INCLUDES THE [facility] Methadone HCl () 10 mg PO TID COUNT INCLUDES THE [facility] Last Admin: 08/08/19 16:34 Dose: 10 mg Documented by: Methylprednisolone (Solu-Medrol) 40 mg IV Q8 COUNT INCLUDES THE [facility] Mirabegron (Myrbetriq) 50 mg PO DAILY [facility] Mirtazapine (Remeron) 7.5 mg PO QHS COUNT INCLUDES THE [facility] Multivitamins (Multivitamin) 1 tablet PO DAILYCM COUNT INCLUDES THE [facility] Nicotine (Nicoderm Cq (Pbkc)) 21 mg TRANSDERM. DAILY [facility] Ondansetron HCl (Zofran) 4 mg IV Q8H PRN PRN PRN Reason: NAUSEA Oxcarbazepine (Trileptal) 600 mg PO BID [facility] Phenobarbital (Phenobarbital) 32.4 mg PO BID [facility] Polyethylene Glycol (Miralax) 17 gm PO BID [facility] Potassium Chloride (K-Dur) 20 meq PO BIDCM COUNT INCLUDES [facility] Last Admin: 08/08/19 16:34 Dose: 20 meq Documented by: Pramipexole Dihydrochloride (Mirapex) 1 mg PO QHS [facility] Risperidone (Risperdal) 0.25 mg PO DAILY [facility] Senna (Senokot) 2 tablet PO BID [facility] Sodium Chloride () 10 - 40 ml IV UD PRN PRN Reason: SALINE FLUSH Temazepam (Restoril) 30 mg PO QHS COUNT INCLUDES THE [facility] Code Visit Addendum: Dr. Waldrop I personally examined the patient and reviewed the chart. I agree with the above. 68-year-old female with a history of COPD presents with shortness of breath for about the last week. She has not talked to her PCP and has really gotten worse. She came in today because she was significantly worse. She is on 3 L nasal cannula at home and has not increased nasal cannula usage. Chest x-ray was unremarkable for pneumonia he was started on Solu-Medrol as well as duo nebs. We will continue to monitor and adjust oxygen as necessary. OBSV E&M: [id number] Initial observation care L2
[2019-08-08] MEDS: Methadone 10 MG Tablet PO ×2 (16:34→21:44)
[2019-08-08] MEDS: Calcium (Elemental) 500 MG Tablet PO (16:34)
[2019-08-08] MEDS: Mirtazapine 15 MG Tablet 7.5 MG PO (21:44)
[2019-08-08] MEDS: Phenobarbital 32.4 MG Tablet PO (21:44)
[2019-08-08] MEDS: Pramipexole Di-HCl 1 MG Tablet PO (21:45)
[2019-08-08] MEDS: Latanoprost 0.005% 1 Bottle 1 DRP EACH EYE (21:47)
[2019-08-08] MEDS: Senna Tablet 2 TABLET PO (21:48)
[2019-08-08] MEDS: OXcarbazepine 600 MG Tablet PO (22:07)
[2019-08-08] MEDS: Temazepam 15 MG Capsule 30 MG PO (22:07)
[2019-08-09] VITALS (9 sets, daily range): BP systolic 104–152; BP diastolic 67–88; PULSE 84–109; RESP 18–22; TEMP 36.9–37.4; O2SAT 93–97
[2019-08-09] MEDS: Ipratropium/Albuterol Sulfate 3 ML AMPUL.NEB INHALATION ×5 (03:19→19:32)
[2019-08-09] MEDS: Methadone 10 MG Tablet PO ×3 (06:14→21:55)
[2019-08-09] MEDS: Levothyroxine 50 MCG Tablet PO (06:14)
[2019-08-09 06:50] LABS: Absolute Lymphocyte Count 0.48 X10^3/uL (0.83-4.51); Basophil# 0.02 X10^3/uL; Basophil% 0.2 % (0-1); Hematocrit 42.8 % (37-47); Lymphocyte # 0.48 X10^3/ul (4.0); Lymphocyte % 5.2 % (19-41); Mean Corp Hgb Conc 32.7 g/dL (32-36); Mean Corpuscular Hgb 30.8 pg (27.0-32.0); Mean Corpuscular Volume 94.1 fL (81-99); Mean Platelet Vol. 8.9 fl (6.2-12.0); Monocyte# 0.67 X10^3/uL; Monocyte% 7.2 % (0-10); NRBC Flagged by Analyzer 0 % (0-5); Neutrophil % 86.5 % (47-70); POSITIVE DIFFERENTIAL YES; Platelet Count 199 K/mm3 (150-450); RBC Distribution Width CV 13.2 % (11.6-14.6); RBC Distribution Width SD 45.7 fl (35.1-43.9); Red Blood Count 4.55 M/mm3 (4.2-5.4); White Blood Count 9.3 K/mm3 (4.4-11.0)
[2019-08-09 07:09] LABS: Differential Indicated SCAN CRITERIA MET
[2019-08-09 07:14] LABS: Anion Gap 5 (5-15); BUN 13 mg/dL (7-18); Calcium,Total 8.6 mg/dL (8.5-10.1); Chloride 106 mmol/L (98-107); Creatinine, Serum 0.62 mg/dL (0.55-1.02); EST Glomerular Filtration Rate 102 mL/min (>60); Est Glom Filt Rate - Afr Amer 123 mL/min (>60); Estimated Creatinine Clearance 47.78 ml/min; Glucose 158 mg/dL (74-106); Sodium Level 140 mmol/L (136-145)
[2019-08-09] MEDS: Multivitamins,Therapeutic Tablet 1 TABLET PO (09:09)
[2019-08-09] MEDS: Famotidine 20 MG Tablet PO (09:09)
[2019-08-09] MEDS: Calcium (Elemental) 500 MG Tablet PO ×2 (09:09→17:06)
[2019-08-09] MEDS: Aspirin E.C. 81 MG Tablet PO (09:10)
[2019-08-09] MEDS: OXcarbazepine 600 MG Tablet PO ×2 (09:10→21:56)
[2019-08-09] MEDS: DULoxetine Hcl 20 MG Capsule PO (09:10)
[2019-08-09] MEDS: Senna Tablet 2 TABLET PO ×2 (09:10→21:57)
[2019-08-09] MEDS: Enoxaparin 40 MG/0.4 ML Syringe SC (09:10)
[2019-08-09] MEDS: RisperiDONE 0.25 MG Tablet PO (09:11)
[2019-08-09] MEDS: Mirabegron 50 MG TAB.ER.24H PO (09:11)
[2019-08-09] MEDS: Polyethylene Glycol 3350 17 GM PACKET PO (09:15)
[2019-08-09] MEDS: Phenobarbital 32.4 MG Tablet PO ×2 (09:15→21:56)
--- NOTE | 2019-08-09 11:07 | CASEMGMT ---
Social Work Note Pt is at [facility] for COPD Exacerbation. SW completed Palliative screening tool, pt scored a 6. SW in to speak with pt. SW introduced self and role at [facility]. Pt soundly sleeping but woke up when this worker entered the room. Pt states that Beata Chen is her CM through [facility] and she has aide services. Per previous notes pt has aide 5x week alternating 6x week for 3 hours a day through [facility]. SW spoke with pt regarding Palliative Care and provided brochure. Pt states not interested in Palliative at this time. SW placed a call to pt's CM Beata Chen and left message regarding pt's admission to [facility]. SW also updated Beata that this worker spoke with pt regarding Palliative Care and asked that pt be talked to about Palliative in the community as well. Cheyanne Cee DENTAL ASSOCIATE, PLUMBER ASSISTANT
[2019-08-09] MEDS: Calcium Carbonate 500 MG Tablet 1000 MG PO (13:46)
[2019-08-09] MEDS: 0.9% Saline Lock 10 ML Syringe IV ×2 (13:46→22:01)
--- NOTE | 2019-08-09 14:44 | CHAPLAIN ---
Type of Pastoral Visit _x__ Initial Visit ___ Follow-up Visit ___ On-call Visit ___ General Patient Visit ___ Spiritual Assessment ___ Family Conference ___ Bereavement ___ Rapid Response ___ Code Blue ___ Other (describe below) Pastoral Care Referral From _x__ Patient ___ Family ___ Nurse ___ Physician ___ Cartridge Assembler ___ Web Feeder ___ Other (describe below) Sacrament/Intervention _x__ Active listening ___ Anointing ___ Taoist ___ Bereavement ___ Communion ___ Kimberly exploration ___ ___ Life review _x__ Prayer ___ Reconciliation ___ Sacrament of Sick ___ Supportive presence ___ Wedding ___ Other (describe below) Pastoral Comments
--- NOTE | 2019-08-09 15:19 | CASEMGMT ---
ERIC BELLE completed WILDE with patient at this time. ERIC BELLE reviewed WILDE form with patient, patient voiced understanding and had no questions at this time. Patient signed form and copy provided to patient. Original filed in chart.
--- NOTE | 2019-08-09 17:08 | PCM.PN.HOSP ---
Reason for Visit: Follow-up on acute COPD exacerbation. Subjective: Patient appears very weak. Denied any fever or chills. Remains on high home 3 L of oxygen. Vitals/I&O's: Vital Signs Temp Pulse Resp BP Pulse Ox 98.9 F 107 H 18 152/88 H 96 08/09/19 15:15 08/09/19 15:15 08/09/19 15:15 08/09/19 15:15 08/09/19 15:15 Oxygen Flow Rate (L/min) 3 Oxygen Delivery Method Nasal Cannula Weight: 79.832 kg Body Mass Index (BMI) 29.2 Intake and Output for Last 24 Hours 08/07/19 08/08/19 08/09/19 23:59 23:59 23:59 Intake Total 400 / 900 1250 / 1250 Output Total 500 / 500 Balance 400 / 800 750 / 750 General: Alert, Oriented x3, Cooperative, - - lethargic HEENT: Atraumatic, PERRLA, EOMI, Normocephalic Oral: Dry Mucosa Neck: Supple Lungs: Diminished Cardiovascular: Regular rate, Regular Rhythm, Normal S1, Normal S2, No murmurs Abdomen: Bowel Sounds Present, Soft, Non Tender, Non-Distended, No Hepato-splenomegaly Extremities: No edema Skin: No rashes, No breakdown Musculoskeletal: No Tenderness to Palpation of Joints or Extremities Lymphatic: No Cervical, Supraclavicular, or Inguinal Adenopathy Neurological: Cranial nerves II-XII grossly intact Psych/Mental Status: Normal Affect, Appropriate Microbiology Past 72 Hours 08/08/19 16:27 Mucosa - Nasopharyngeal Respiratory Panel (PCR) - Final 08/08/19 12:25 Mucosa - Nasopharyngeal Influenza Types A,B Direct FA (JASWANT) - Final Laboratory Results 08/09/19 06:35: WBC 9.3, RBC 4.55, Hgb 14.0, Hct 42.8, MCV 94.1, MCH 30.8, MCHC 32.7, RDW Std Deviation 45.7 H, RDW Coeff of Jordin 13.2, Plt Count 199, MPV 8.9, Immature Gran % (Auto) 0.900, Neut % (Auto) 86.5 H, Lymph % (Auto) 5.2 L, Grayson % (Auto) 7.2, Eos % (Auto) 0.0, Baso % (Auto) 0.2, Absolute Neuts (auto) 8.0 H, Absolute Lymphs (auto) 0.48 L, Nucleated RBC % 0, Differential Comment COMMENT 08/09/19 06:35: Sodium 140, Potassium 4.0, Chloride 106, Carbon Dioxide 29.0, Anion Gap 5, BUN 13, Creatinine 0.62, Estim Creat Clear Calc 47.78, Est GFR (MDRD) Af Amer 123, Est GFR (MDRD) Non-Af 102, BUN/Creatinine Ratio 21.0 H, Glucose 158 H, Calcium 8.6 Current Medications Acetaminophen (Tylenol) 650 mg PO Q6H PRN PRN PRN Reason: Pain Score 1-10/Temp > 100.7 F Albuterol Sulfate (Ventolin Aerosols) 2.5 mg INHALATION Q2H PRN PRN PRN Reason: SHORTNESS OF BREATH Albuterol/Ipratropium (Duoneb) 3 ml INHALATION Q4HWA.RT [facility] Last Admin: 08/09/19 15:04 Dose: 3 ml Documented by: [facility]) [facility] Last Admin: 08/09/19 09:10 Dose: 81 mg Documented by: Benzonatate (Tessalon Perle) 100 mg PO TID PRN PRN PRN Reason: COUGH Calcium Carbonate (Os-Nolan 500) [facility] Last Admin: 08/09/19 17:06 Dose: 500 mg Documented by: Calcium Carbonate (Tums) 1,000 mg PO Q4H PRN PRN PRN Reason: INDIGESTION Last Admin: 08/09/19 13:46 Dose: 1,000 mg Documented by: Duloxetine HCl (Cymbalta) 20 mg PO DAILY [facility] Last Admin: 08/09/19 09:10 Dose: 20 mg Documented by: Enoxaparin Sodium (Lovenox) 40 mg SC DAILY [facility] Last Admin: 08/09/19 09:10 Dose: 40 mg Documented by: Famotidine (Pepcid) 20 mg PO DAILY [facility] Last Admin: 08/09/19 09:09 Dose: 20 mg Documented by: Sodium Chloride () 250 mls @ 15 mls/hr IV .[id number] PRN PRN Reason: Saline Flush Latanoprost (Xalatan Opthalmic) 1 drop EACH EYE QHS [facility] Last Admin: 08/08/19 21:47 Dose: 1 drop Documented by: Levothyroxine Sodium (Synthroid) 50 mcg PO DAILY@0600 [facility] Last Admin: 08/09/19 06:14 Dose: 50 mcg Documented by: Methadone HCl () 10 mg PO TID [facility] Last Admin: 08/09/19 13:46 Dose: 10 mg Documented by: Methylprednisolone (Solu-Medrol) 40 mg IV Q8 [facility] Last Admin: 08/09/19 13:46 Dose: 40 mg Documented by: Mirabegron (Myrbetriq) 50 mg PO DAILY [facility] Last Admin: 08/09/19 09:11 Dose: 50 mg Documented by: Mirtazapine (Remeron) 7.5 mg PO QHS [facility] Last Admin: 08/08/19 21:44 Dose: 7.5 mg Documented by: Multivitamins (Multivitamin) [facility] Last Admin: 08/09/19 09:09 Dose: 1 tablet Documented by: Nicotine (Nicoderm Cq (Pbkc)) 21 mg TRANSDERM. DAILY [facility] Last Admin: 08/09/19 09:11 Dose: 21 mg Documented by: Ondansetron HCl (Zofran) 4 mg IV Q8H PRN PRN PRN Reason: NAUSEA Oxcarbazepine (Trileptal) 600 mg PO BID [facility] Last Admin: 08/09/19 09:10 Dose: 600 mg Documented by: Phenobarbital (Phenobarbital) 32.4 mg PO BID [facility] Last Admin: 08/09/19 09:15 Dose: 32.4 mg Documented by: Polyethylene Glycol (Miralax) 17 gm PO BID [facility] Last Admin: 08/09/19 09:15 Dose: 17 gm Documented by: Potassium Chloride (K-Dur) [facility]q [facility] Last Admin: 08/09/19 17:06 Dose: 20 meq Documented by: Pramipexole Dihydrochloride (Mirapex) 1 mg PO QHS [facility] Last Admin: 08/08/19 21:45 Dose: 1 mg Documented by: Risperidone (Risperdal) 0.25 mg PO DAILY [facility] Last Admin: 08/09/19 09:11 Dose: 0.25 mg Documented by: Senna (Senokot) 2 tablet PO BID [facility] Last Admin: 08/09/19 09:10 Dose: 2 tablet Documented by: Sodium Chloride () 10 - 40 ml IV UD PRN PRN Reason: SALINE FLUSH Last Admin: 08/09/19 13:46 Dose: 10 ml Documented by: Temazepam (Restoril) 30 mg PO QHS [facility] Last Admin: 08/08/19 22:07 Dose: 30 mg Documented by: STROKE Vital Signs/Narrative: Vital Signs Temp Pulse Resp BP Pulse Ox 08/09/19 15:15 98.9 F 107 H 18 152/88 H 96 08/09/19 15:04 95 18 Medical Necessity - Tobacco Use Smoking Status: Current every day smoker Tobacco Use: Cigarettes Assessment/Plan All Active Problems (Last Reviewed 04/15/19 @ 11:[address] Daniel Taylor MD) Rectal prolapse (Acute) Diarrhea (Acute) Phenytoin toxicity (Resolved) 1. Acute COPD exacerbation, in a patient with chronic hypoxic respiratory failure, 3L home oxygen Admitting chest x-ray is negative for acute infiltrate Influenza screen is negative, respiratory panel negative We will continue on breathing treatment, IV Solu-Medrol 2. History of seizures, on phenobarbital, Trileptal. 3. Depression/anxiety with history of suicide attempt, continue on duloxetine, mirtazapine, Risperdal, temazepam. 4. Tobacco dependence, on nicotine replacement 5. Chronic pain syndrome, continue on methadone. 6. Chronic constipation, continue home bowel regimen including Relistor. 7. Restless leg syndrome, continue Requip regimen. 8. Hypothyroidism, continue Synthroid regimen. 9. DVT ppx- Lovenox SC Code Visit Inpatient E&M: 79136 Subs Hosp L2
[2019-08-09] MEDS: Temazepam 15 MG Capsule 30 MG PO (21:55)
[2019-08-09] MEDS: Latanoprost 0.005% 1 Bottle 1 DRP EACH EYE (21:56)
[2019-08-09] MEDS: Pramipexole Di-HCl 1 MG Tablet PO (21:57)
[2019-08-09] MEDS: Mirtazapine 15 MG Tablet 7.5 MG PO (21:58)
[2019-08-10] VITALS (10 sets, daily range): BP systolic 112–147; BP diastolic 22–75; PULSE 85–110; RESP 18–24; TEMP 36.8–37.4; O2SAT 92–97
[2019-08-10] MEDS: Ipratropium/Albuterol Sulfate 3 ML AMPUL.NEB INHALATION ×3 (03:16→18:46)
[2019-08-10] MEDS: Levothyroxine 50 MCG Tablet PO (06:27)
[2019-08-10] MEDS: Methadone 10 MG Tablet PO ×3 (06:27→21:15)
[2019-08-10] MEDS: Multivitamins,Therapeutic Tablet 1 TABLET PO (09:22)
[2019-08-10] MEDS: Aspirin E.C. 81 MG Tablet PO (09:22)
[2019-08-10] MEDS: DULoxetine Hcl 20 MG Capsule PO (09:22)
[2019-08-10] MEDS: Mirabegron 50 MG TAB.ER.24H PO (09:23)
[2019-08-10] MEDS: Calcium (Elemental) 500 MG Tablet PO ×2 (09:23→15:41)
[2019-08-10] MEDS: Senna Tablet 2 TABLET PO ×2 (09:24→21:15)
[2019-08-10] MEDS: Famotidine 20 MG Tablet PO (09:24)
[2019-08-10] MEDS: Enoxaparin 40 MG/0.4 ML Syringe SC (09:25)
[2019-08-10] MEDS: RisperiDONE 0.25 MG Tablet PO (09:25)
[2019-08-10] MEDS: OXcarbazepine 600 MG Tablet PO ×2 (09:28→21:16)
[2019-08-10] MEDS: Polyethylene Glycol 3350 17 GM PACKET PO (09:33)
[2019-08-10] MEDS: Phenobarbital 32.4 MG Tablet PO ×2 (09:33→21:15)
--- NOTE | 2019-08-10 10:10 | CASEMGMT ---
Addendum entered by Khurram Lipscomb 08/10/19 16:59: 1030: Call received back from Aminah @ [facility]. They are able to accept pt. She was made aware anticipate discharge tomorrow. She states plan is for start of care on Tuesday. Pt notified. Addendum entered by Khurram Lipscomb 08/10/19 16:57: 1020: Pt c/o SOB and wheezing noted. Pt was just up with therapy and states has worsened since being up and would like a breathing tx. Resp therapy notifie.d Dr Lanier notified of pt's complaints. Original Note: RN CM SHEAR HELPER CM to room to meet with patient for initial transition planning/care coordination assessment. RN CM introduced self and role at [facility]. Pt voices understanding and consents to assessment at this time. Pt is A/O at this time and answers all questions appropriately. Care providers, pharmacy, and demographics verified/updated at this time. PCP: Dr Veliz Specialists: [facility] Preferred Pharmacy: [facility] Retail Insurance: [employer] Dual Prescription Benefit: Yes Living Will/HPOA: Has both LW and Healthcare POA, who is her son, Yaakov. Records of both found on file @ [facility]. LNOK: SonYaakov Living Arrangements: Lives alone in an apt. No steps to enter. [facility] has Passport services and has an aide through [employer]. [employer] Draftsperson is Beata Chen. [facility] her aide assists with care, home mgmt tasks, and grocery shopping. Transportation: [employer] for appts. Son also provides transportation. Son will take her home @ D/C DME: [facility] has the following DME: shower chair, rollator, nebulizer. O2 @ 3 L/M through [employer]--has concentrator and portability. States her son can bring in portable O2 tank @ discharge. Pt states no need for further DME at this time. HHC/SNF: has been to several SNF's in the past but has not had HHC. Pt states she wishes to return home. Discussed HHC and pt agreeable. Given list of local HHC agencies and 1st choice is [facility]. Call placed to Aminah @ [facility] and referral made. CM to follow for home oxygen needs and any further discharge planning/needs. Advised pt to ask for CM if any further questions/concerns/needs arise. Voices understanding. PLAN: Home w/HHC. Pt on CM to follow for increased O2 needs @ d/c. If requires more than 3 L/M n/c, will need new script faxed to [facility] @ discharge. Mariam OLIVON RN CM
[2019-08-10] MEDS: levoFLOXacin IV 750 MG/150 ML BAG 100 MG IV (15:39)
--- NOTE | 2019-08-10 17:39 | PN_ITS ---
Reason for Visit: Follow-up on acute COPD exacerbation Subjective: Patient seen and examined. She feels progressively worse. She has been coughing greenish sputum. She has audible wheezing. No other acute events overnight Objective: Physical exam: General: Alert, Oriented x3, Cooperative, audible wheezes, in mild respiratory distress, on 3L oxygen HEENT: Atraumatic, PERRLA, EOMI, Normocephalic Oral: Dry Mucosa Neck: Supple Lungs: Diminished, wheezes +++ Cardiovascular: Regular rate, Regular Rhythm, Normal S1, Normal S2, No murmurs Abdomen: Bowel Sounds Present, Soft, Non Tender, Non-Distended, No Hepato- splenomegaly Extremities: No edema Skin: No rashes, No breakdown Musculoskeletal: No Tenderness to Palpation of Joints or Extremities Lymphatic: No Cervical, Supraclavicular, or Inguinal Adenopathy Neurological: Cranial nerves II-XII grossly intact Psych/Mental Status: Normal Affect, Appropriate Vitals/I&O's: Vital Signs Temp Pulse Resp BP Pulse Ox 98.3 F 98 18 112/71 96 08/10/19 15:40 08/10/19 15:40 08/10/19 15:40 08/10/19 15:40 08/10/19 15:40 Oxygen Flow Rate (L/min) [ 3 AMBULATION with Oxygen] Oxygen Flow Rate (L/min) 3 Oxygen Delivery Method Room Air Weight: 79.832 kg Body Mass Index (BMI) 29.2 Intake and Output for Last 24 Hours 08/08/19 08/09/19 08/10/19 23:59 23:59 23:59 Intake Total 400 / 900 1500 / 1900 550.75 / 550.75 Output Total 700 / 800 100 / 100 Balance 400 / 800 800 / 1100 450.75 / 450.75 Microbiology Past 72 Hours 08/08/19 13:11 Blood Culture (Wb) #2 - Anticubital Left Blood Culture - Preliminary No growth in 48 hours. 08/08/19 12:35 Blood Culture (Wb) - Anticubital Left Blood Culture - Preliminary No growth in 48 hours. 08/08/19 16:27 Mucosa - Nasopharyngeal Respiratory Panel (PCR) - Final 08/08/19 12:25 Mucosa - Nasopharyngeal Influenza Types A,B Direct FA (JASWANT) - Final Current Medications Acetaminophen (Tylenol) 650 mg PO Q6H PRN PRN PRN Reason: Pain Score 1-10/Temp > 100.7 F Albuterol Sulfate (Ventolin Aerosols) 2.5 mg INHALATION Q2H PRN PRN PRN Reason: SHORTNESS OF BREATH Albuterol/Ipratropium (Duoneb) 3 ml INHALATION Q4HWA.RT [facility] Last Admin: 08/10/19 07:22 Dose: 3 ml Documented by: [facility]) [facility] Last Admin: 08/10/19 09:22 Dose: 81 mg Documented by: Benzonatate (Tessalon Perle) 100 mg PO TID PRN PRN PRN Reason: COUGH Calcium Carbonate (Os-Nolan 500) 500 mg PO BIDCM [facility] Last Admin: 08/10/19 15:41 Dose: 500 mg Documented by: Calcium Carbonate (Tums) 1,000 mg PO Q4H PRN PRN PRN Reason: INDIGESTION Last Admin: 08/09/19 13:46 Dose: 1,000 mg Documented by: Duloxetine HCl (Cymbalta) 20 mg PO DAILY [facility] Last Admin: 08/10/19 09:22 Dose: 20 mg Documented by: Enoxaparin Sodium (Lovenox) 40 mg SC DAILY [facility] Last Admin: 08/10/19 09:25 Dose: 40 mg Documented by: Famotidine (Pepcid) 20 mg PO DAILY [facility] Last Admin: 08/10/19 09:24 Dose: 20 mg Documented by: Sodium Chloride () 250 mls @ 15 mls/hr IV .[id number] PRN PRN Reason: Saline Flush Last Infusion: 08/10/19 17:10 Dose: 15 mls/hr Documented by: Levofloxacin (Levaquin Iv) 750 mg in 150 mls @ 100 mls/hr IV Q24 [facility] Last Infusion: 08/10/19 17:09 Dose: Infused Documented by: Latanoprost (Xalatan Opthalmic) 1 drop EACH EYE QHS [facility] Last Admin: 08/09/19 21:56 Dose: 1 drop Documented by: Levothyroxine Sodium (Synthroid) 50 mcg PO DAILY@0600 [facility] Last Admin: 08/10/19 06:27 Dose: 50 mcg Documented by: Methadone HCl () 10 mg PO TID [facility] Last Admin: 02/21/20 15:39 Dose: 10 mg Documented by: Methylprednisolone (Solu-Medrol) 40 mg IV Q8 [facility] Last Admin: 08/10/19 15:39 Dose: 40 mg Documented by: Mirabegron (Myrbetriq) 50 mg PO DAILY [facility] Last Admin: 08/10/19 09:23 Dose: 50 mg Documented by: Mirtazapine (Remeron) 7.5 mg PO QHS [facility] Last Admin: 08/09/19 21:58 Dose: 7.5 mg Documented by: Multivitamins (Multivitamin) [facility] Last Admin: 08/10/19 09:22 Dose: 1 tablet Documented by: Nicotine (Nicoderm Cq (Pbkc)) 21 mg TRANSDERM. DAILY [facility] Last Admin: 08/10/19 09:23 Dose: 21 mg Documented by: Ondansetron HCl (Zofran) 4 mg IV Q8H PRN PRN PRN Reason: NAUSEA Oxcarbazepine (Trileptal) 600 mg PO BID [facility] Last Admin: 08/10/19 09:28 Dose: 600 mg Documented by: Phenobarbital (Phenobarbital) 32.4 mg PO BID [facility] Last Admin: 08/10/19 09:33 Dose: 32.4 mg Documented by: Polyethylene Glycol (Miralax) 17 gm PO BID [facility] Last Admin: 08/10/19 09:33 Dose: 17 gm Documented by: Potassium Chloride (K-Dur) [facility] Last Admin: 08/10/19 15:42 Dose: 20 meq Documented by: Pramipexole Dihydrochloride (Mirapex) 1 mg PO QHS [facility] Last Admin: 08/09/19 21:57 Dose: 1 mg Documented by: Risperidone (Risperdal) 0.25 mg PO DAILY [facility] Last Admin: 08/10/19 09:25 Dose: 0.25 mg Documented by: Senna (Senokot) 2 tablet PO BID [facility] Last Admin: 08/10/19 09:24 Dose: 2 tablet Documented by: Sodium Chloride () 10 - 40 ml IV UD PRN PRN Reason: SALINE FLUSH Last Admin: 08/09/19 22:01 Dose: 10 ml Documented by: Temazepam (Restoril) 30 mg PO QHS [facility] Last Admin: 08/09/19 21:55 Dose: 30 mg Documented by: STROKE Vital Signs/Narrative: Vital Signs Temp Pulse Resp BP Pulse Ox 08/10/19 15:40 98.3 F 98 18 112/71 96 Medical Necessity - Tobacco Use Smoking Status: Current every day smoker Tobacco Use: Cigarettes Assessment/Plan All Active Problems (Last Reviewed 04/15/19 @ 11:[address] Daniel Taylor MD) Rectal prolapse (Acute) Diarrhea (Acute) Phenytoin toxicity (Resolved) 1. Acute COPD exacerbation, in a patient with chronic hypoxic respiratory failure, 3L home oxygen, worse today Admitting chest x-ray is negative for acute infiltrate.Influenza screen is negative, respiratory panel negative Will start on Levaquin IV, breathing treatments, IV Solu-Medrol 2. History of seizures, on phenobarbital, Trileptal. 3. Depression/anxiety with history of suicide attempt, continue on duloxetine, mirtazapine, Risperdal, temazepam. 4. Tobacco dependence, on nicotine replacement 5. Chronic pain syndrome, continue on methadone. 6. Chronic constipation, continue home bowel regimen including Relistor. 7. Restless leg syndrome, continue Requip regimen. 8. Hypothyroidism, continue Synthroid regimen. 9. DVT ppx- Lovenox SC Code Visit Inpatient E&M: 35634 Subs Hosp L2
[2019-08-10] MEDS: Mirtazapine 15 MG Tablet 7.5 MG PO (21:15)
[2019-08-10] MEDS: Temazepam 15 MG Capsule 30 MG PO (21:15)
[2019-08-10] MEDS: Pramipexole Di-HCl 1 MG Tablet PO (21:17)
[2019-08-10] MEDS: Latanoprost 0.005% 1 Bottle 1 DRP EACH EYE (21:17)
[2019-08-11] VITALS (7 sets, daily range): BP systolic 113–122; BP diastolic 74–80; PULSE 80–104; RESP 18; TEMP 36.3–36.9; O2SAT 86–99
[2019-08-11] MEDS: Levothyroxine 50 MCG Tablet PO (05:45)
[2019-08-11] MEDS: Methadone 10 MG Tablet PO ×2 (05:45→13:05)
[2019-08-11] MEDS: Ipratropium/Albuterol Sulfate 3 ML AMPUL.NEB INHALATION ×3 (07:02→14:05)
[2019-08-11] MEDS: OXcarbazepine 600 MG Tablet PO (08:35)
[2019-08-11] MEDS: Mirabegron 50 MG TAB.ER.24H PO (08:35)
[2019-08-11] MEDS: Aspirin E.C. 81 MG Tablet PO (08:35)
[2019-08-11] MEDS: Multivitamins,Therapeutic Tablet 1 TABLET PO (08:35)
[2019-08-11] MEDS: Famotidine 20 MG Tablet PO (08:35)
[2019-08-11] MEDS: Calcium (Elemental) 500 MG Tablet PO (08:35)
[2019-08-11] MEDS: Senna Tablet 2 TABLET PO (08:35)
[2019-08-11] MEDS: DULoxetine Hcl 20 MG Capsule PO ×2 (08:36)
[2019-08-11] MEDS: Enoxaparin 40 MG/0.4 ML Syringe SC (08:37)
[2019-08-11] MEDS: RisperiDONE 0.25 MG Tablet PO (08:37)
[2019-08-11] MEDS: Phenobarbital 32.4 MG Tablet PO (08:39)
[2019-08-11] MEDS: levoFLOXacin IV 750 MG/150 ML BAG 100 MG IV (10:19)
[2019-08-11] MEDS: 0.9% Saline Lock 10 ML Syringe IV (10:19)
--- NOTE | 2019-08-11 10:48 | DCINST_ITS ---
- Discharge Diagnoses Reason(s) for Visit for Discharge Instructions: Acute COPD exacerbation You will use the following diet at home:: Regular Your food should be the consistency of: Regular Your liquids should be the consistency of: Regular/Thin Discharge Activity: Return to Normal Activity Instructions: Chronic Lung Disease: Maximizing Your Energy, Chronic Lung Disease: Becoming More Active, Good Nutrition for Chronic Lung Disease, Care for COPD Additional Instructions: Continue to take all your medications as scheduled. Use your oxygen all the the time; wear 3L oxygen at rest and increase to 4L oxygen when you move. Complete your antibiotics as prescribed. Allergies/Adverse Reactions: Allergies codeine Allergy (Mild, Verified 08/08/19 12:09) HIVES Penicillins Allergy (Verified 08/08/19 12:09) Anaphylaxis Medications to take at Discharge Aspirin [Aspirin EC] 81 mg PO DAILY 01/07/19 Duloxetine HCl 20 mg PO DAILY 01/07/19 Levothyroxine [Synthroid] 50 mcg PO DAILY 01/07/19 Mirabegron [Myrbetriq] 50 mg PO DAILY 01/07/19 Multivitamins,Therapeutic [Multivitamin] 1 tab PO DAILY 01/07/19 Oxcarbazepine [Trileptal] 600 mg PO BID 01/07/19 Phenobarbital 32.4 mg PO BID 01/07/19 Potassium Chloride [K-Dur] 20 meq PO BID 01/07/19 Ranitidine [Zantac] 300 mg PO DAILY 01/07/19 Risperidone 0.25 mg PO DAILY 01/07/19 Sennosides [Senna] 2 tab PO BID 01/07/19 Temazepam 2 tab PO QHS 01/07/19 calcium carbonate 500 mg calcium (1,250 mg) tablet 500 mg PO BID 02/21/19 mirtazapine 7.5 mg tablet 7.5 mg PO QHS tab 02/21/19 Latanoprost/Pf [Latanoprost 0.005% Eye Drop] 1 drp EACHEYE QHS 08/08/19 Methadone HCl 10 mg PO TID 08/08/19 Methylnaltrexone [place] [Relistor] 150 mg PO DAILY 08/08/19 Nicotine [Nicoderm Cq] 1 patch TOPICAL DAILY 08/08/19 Ropinirole HCl 2 mg PO QHS 08/08/19 Acetaminophen [Tylenol Tablet] 650 mg PO Q6H PRN PRN tablet 08/11/19 Benzonatate [Tessalon Perle] 100 mg PO TID PRN PRN 5 Days #20 cap 08/11/19 Levofloxacin [Levaquin] 750 mg PO DAILY 3 Days #3 tab 08/11/19 Prednisone 10 mg PO DAILY 12 Days #30 tab 08/11/19 The following prescriptions were given: Levofloxacin [Levaquin] 750 mg PO DAILY 3 Days #3 tab Transmission Status: Pending to [facility] Prednisone 10 mg PO DAILY 12 Days #30 tab Transmission Status: Pending to [facility] Benzonatate [Tessalon Perle] 100 mg PO TID PRN PRN 5 Days #20 cap PRN Reason: COUGH Transmission Status: Pending to [facility] Primary Care Physician: Patel Veliz Chi, MD [Primary Care Provider] - Please follow up with your Primary Care Physician in: within 2 weeks Test Results: Test results from this visit will be discussed in further detail at your follow- up appointment, if applicable. Proposed Discharge Date: 08/11/19
--- NOTE | 2019-08-11 11:04 | PCM.DC.SUM ---
Discharge Date and Diagnosis Date of Admission: 08/08/19 Date of Discharge: 08/11/19 - Primary Discharge Diagnosis Acute COPD exacerbation - Secondary Discharge Diagnosis Chronic Problems History of bilateral cataract extraction (Chronic) History of blepharoplasty (Chronic) History of right salpingo-oophorectomy (Chronic) Status post ORIF of fracture of ankle (Chronic) History of cystoscopy (Chronic) History of bilateral carpal tunnel release (Chronic) Stress bladder incontinence, female (Chronic) Urge incontinence (Chronic) Chronic constipation (Chronic) Grade III hemorrhoids (Chronic) Hypothyroidism (Chronic) Glaucoma (Chronic) Obstipation (Chronic) Edentulous (Chronic) Chronic hypoxemic respiratory failure (Chronic) Suicide attempt (Chronic) Tobacco use (Chronic) Depression (Chronic) Insomnia (Chronic) She takes Temazepam every night for sleep, prescribed by Dr. Veliz Hypertension (Chronic) Physical debility (Chronic) Degenerative disc disease, lumbar (Chronic) Pain, chronic (Chronic) Seizure disorder (Chronic) Restless leg syndrome (Chronic) COPD (chronic obstructive pulmonary disease) (Chronic) 1 ppd now smoker 4 ppd Obstructive sleep apnea (Chronic) non-compliant with CPAP but has oxygen to wear at night Smokes with greater than 40 pack year history (Chronic) Hospital Course and Treatment Imaging Results: Clinical Impression(s) from Imaging Studies Chest X-Ray 08/08/19 12:40 IMPRESSION: Hyperinflation. No acute abnormality is seen. Electronically Signed: Isaias Ludwig, at 13:05 EST , Service support , None Operations: None Procedures: None Summary of Care Provided: The patient is a 68 year old F past medical history of COPD on chronic 3 L home oxygen, who has had recent upper respiratory infection for the past 1 week presented with progressive shortness of breath, cough and intermittent fever or chills. She had associated nausea without diarrhea. She was seen in the emergency department and was saturating on 3 L of oxygen but was in mild respiratory failure. Rapid influenza screen was negative in the emergency department. Respiratory panel was also negative during the hospital stay. Chest x-ray did not show any acute cardiopulmonary infiltrate. She was started on IV Solu-Medrol with breathing treatments. Patient was reassessed the next day and continued to be short of breath requiring more oxygen on exertion. She was kept and monitored. She was started on Levaquin on 08/10/19. The next day patient felt improved. No wheezes on exam. She was discharged to complete 5 days of Levaquin and a prednisone taper. She was asked to use 3 L of oxygen at rest and increased to 4 L when she exerted herself. She was also asked to use her incentive spirometer and her Acapella. 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 She will be followed up also by home health. Subjective: On the day of discharge, patient was seen and examined. She feels much better than she did previously. She still coughing, productive of greenish sputum. No wheezes. Objective: Physical exam: General: Alert, Oriented x3, Cooperative, audible wheezes, looks improved, on 3L oxygen HEENT: Atraumatic, PERRLA, EOMI, Normocephalic Oral: Dry Mucosa Neck: Supple Lungs: Diminished, no wheezes heard at the time of exam Cardiovascular: Regular rate, Regular Rhythm, Normal S1, Normal S2, No murmurs Abdomen: Bowel Sounds Present, Soft, Non Tender, Non-Distended, No Hepato-splenomegaly Extremities: No edema Skin: No rashes, No breakdown Musculoskeletal: No Tenderness to Palpation of Joints or Extremities Lymphatic: No Cervical, Supraclavicular, or Inguinal Adenopathy Neurological: Cranial nerves II-XII grossly intact Psych/Mental Status: Normal Affect, Appropriate - Physical Exam Vitals/I&O's: Vital Signs Temp Pulse Resp BP Pulse Ox 98.5 F 92 18 122/80 H 86 08/11/19 08:55 08/11/19 08:55 08/11/19 08:55 08/11/19 08:55 08/11/19 09:11 Oxygen Flow Rate (L/min) [ 3 AMBULATION with Oxygen] Oxygen Flow Rate (L/min) 3 Oxygen Delivery Method Room Air Weight: 79.832 kg Body Mass Index (BMI) 29.2 Intake and Output for Last 24 Hours 08/09/19 08/10/19 08/11/19 23:59 23:59 23:59 Intake Total 1500 / 1900 919.00 / 919.00 Output Total 700 / 800 400 / 400 450 / 450 Balance 800 / 1100 519.00 / 519.00 -450 / -450 Microbiology Past 72 Hours 08/08/19 13:11 Blood Culture (Wb) #2 - Anticubital Left Blood Culture - Preliminary No growth in 48 hours. 08/08/19 12:35 Blood Culture (Wb) - Anticubital Left Blood Culture - Preliminary No growth in 48 hours. 08/08/19 16:27 Mucosa - Nasopharyngeal Respiratory Panel (PCR) - Final 08/08/19 12:25 Mucosa - Nasopharyngeal Influenza Types A,B Direct FA (JASWANT) - Final Current Medications Acetaminophen (Tylenol) 650 mg PO Q6H PRN PRN PRN Reason: Pain Score 1-10/Temp > 100.7 F Albuterol Sulfate (Ventolin Aerosols) 2.5 mg INHALATION Q2H PRN PRN PRN Reason: SHORTNESS OF BREATH Albuterol/Ipratropium (Duoneb) 3 ml INHALATION Q4HWA.RT [facility], [facility] Last Admin: 08/11/19 07:02 Dose: 3 ml Documented by: [facility] ([facility]cot[facility]) [facility] Last Admin: 08/11/19 08:35 Dose: 81 mg Documented by: Benzonatate (Tessalon Perle) 100 mg PO TID PRN PRN PRN Reason: COUGH Calcium Carbonate (Os-Nolan 500) 500 [facility] Last Admin: 08/11/19 08:35 Dose: 500 mg Documented by: Calcium Carbonate (Tums) 1,000 mg PO Q4H PRN PRN PRN Reason: INDIGESTION Last Admin: 08/09/19 13:46 Dose: 1,000 mg Documented by: Duloxetine HCl (Cymbalta) 20 mg PO DAILY [facility] Last Admin: 08/11/19 08:36 Dose: 20 mg Documented by: Enoxaparin Sodium (Lovenox) 40 mg SC DAILY [facility] Last Admin: 08/11/19 08:37 Dose: 40 mg Documented by: Famotidine (Pepcid) 20 mg PO DAILY [facility] Last Admin: 08/11/19 08:35 Dose: 20 mg Documented by: Sodium Chloride () 250 mls @ 15 mls/hr IV .[id number] PRN PRN Reason: Saline Flush Last Infusion: 08/10/19 17:43 Dose: 0 mls/hr Documented by: Levofloxacin (Levaquin Iv) 750 mg in 150 mls @ 100 mls/hr IV Q24 [facility] Last Admin: 08/11/19 10:19 Dose: 100 mls/hr Documented by: Latanoprost (Xalatan Opthalmic) 1 drop EACH EYE QHS [facility] Last Admin: 08/10/19 21:17 Dose: 1 drop Documented by: Levothyroxine Sodium (Synthroid) 50 mcg PO DAILY@0600 [facility] Last Admin: 08/11/19 05:45 Dose: 50 mcg Documented by: Methadone HCl () 10 mg PO TID [facility] Last Admin: 08/11/19 05:45 Dose: 10 mg Documented by: Methylprednisolone (Solu-Medrol) 40 mg IV Q8 [facility] Last Admin: 08/11/19 05:45 Dose: 40 mg Documented by: Mirabegron (Myrbetriq) 50 mg PO DAILY [facility] Last Admin: 08/11/19 08:35 Dose: 50 mg Documented by: Mirtazapine (Remeron) 7.5 mg PO QHS [facility] Last Admin: 08/10/19 21:15 Dose: 7.5 mg Documented by: Multivitamins (Multivitamin) [facility] tablet [facility] Last Admin: 08/11/19 08:35 Dose: 1 tablet Documented by: Nicotine (Nicoderm Cq (Pbkc)) 21 mg TRANSDERM. DAILY [facility] Last Admin: 08/11/19 08:33 Dose: 21 mg Documented by: Ondansetron HCl (Zofran) 4 mg IV Q8H PRN PRN PRN Reason: NAUSEA Oxcarbazepine (Trileptal) 600 mg PO BID [facility] Last Admin: 08/11/19 08:35 Dose: 600 mg Documented by: Phenobarbital (Phenobarbital) 32.4 mg PO BID [facility] Last Admin: 08/11/19 08:39 Dose: 32.4 mg Documented by: Polyethylene Glycol (Miralax) 17 gm PO BID [facility] Last Admin: 08/11/19 08:37 Dose: Not Given Documented by: Potassium Chloride (K-Dur) 20 meq PO [facility]IDB[facility] Last Admin: 08/11/19 08:37 Dose: 20 meq Documented by: Pramipexole Dihydrochloride (Mirapex) 1 mg PO QHS [facility] Last Admin: 08/10/19 21:17 Dose: 1 mg Documented by: Risperidone (Risperdal) 0.25 mg PO DAILY [facility] Last Admin: 08/11/19 08:37 Dose: 0.25 mg Documented by: Senna (Senokot) 2 tablet PO BID [facility] Last Admin: 08/11/19 08:35 Dose: 2 tablet Documented by: Sodium Chloride () 10 - 40 ml IV UD PRN PRN Reason: SALINE FLUSH Last Admin: 08/11/19 10:19 Dose: 10 ml Documented by: Temazepam (Restoril) 30 mg PO QHS [facility] Last Admin: 08/10/19 21:15 Dose: 30 mg Documented by: Discharge Diet: No Restrictions Discharge Activity: Return to Normal Activity Home Medications: Medications to take at Discharge Aspirin [Aspirin EC] 81 mg PO DAILY 01/07/19 Duloxetine HCl 20 mg PO DAILY 01/07/19 Levothyroxine [Synthroid] 50 mcg PO DAILY 01/07/19 Mirabegron [Myrbetriq] 50 mg PO DAILY 01/07/19 Multivitamins,Therapeutic [Multivitamin] 1 tab PO DAILY 01/07/19 Oxcarbazepine [Trileptal] 600 mg PO BID 01/07/19 Phenobarbital 32.4 mg PO BID 01/07/19 Potassium Chloride [K-Dur] 20 meq PO BID 01/07/19 Ranitidine [Zantac] 300 mg PO DAILY 01/07/19 Risperidone 0.25 mg PO DAILY 01/07/19 Sennosides [Senna] 2 tab PO BID 01/07/19 Temazepam 2 tab PO QHS 01/07/19 calcium carbonate 500 mg calcium (1,250 mg) tablet 500 mg PO BID 02/21/19 mirtazapine 7.5 mg tablet 7.5 mg PO QHS tab 02/21/19 Latanoprost/Pf [Latanoprost 0.005% Eye Drop] 1 drp EACHEYE QHS 08/08/19 Methadone HCl 10 mg PO TID 08/08/19 Methylnaltrexone [place] [Relistor] 150 mg PO DAILY 08/08/19 Nicotine [Nicoderm Cq] 1 patch TOPICAL DAILY 08/08/19 Ropinirole HCl 2 mg PO QHS 08/08/19 Acetaminophen [Tylenol Tablet] 650 mg PO Q6H PRN PRN tab 08/11/19 Benzonatate [Tessalon Perle] 100 mg PO TID PRN PRN 5 Days #20 cap 08/11/19 Levofloxacin [Levaquin] 750 mg PO DAILY 3 Days #3 tab 08/11/19 Prednisone 10 mg PO DAILY 12 Days #30 tab 08/11/19 Following Prescrptions Were Given to Patient: Levofloxacin [Levaquin] 750 mg PO DAILY 3 Days #3 tab Transmission Status: Received by [facility] Prednisone 10 mg PO DAILY 12 Days #30 tab Transmission Status: Received by [facility] Benzonatate [Tessalon Perle] 100 mg PO TID PRN PRN 5 Days #20 cap PRN Reason: COUGH Transmission Status: Received by [facility] Primary Care Physician: Patel Veliz Chi, MD [Primary Care Provider] - Please follow up with your Primary Care Physician in: within 2 weeks Patient Instructions: Chronic Lung Disease: Becoming More Active, Chronic Lung Disease: Maximizing Your Energy, Care for COPD, Good Nutrition for Chronic Lung Disease Disposition: Home with Home Health Minutes spent on discharge:: 40 Patient Condition:: Stable Medical Necessity - Tobacco Use Smoking Status: Current every day smoker Tobacco Use: Cigarettes Meaningful Use Info Meaningful Use Diagnoses (Choose all that apply): None applicable Code Visit Inpatient E&M: 26634 Disch Hosp
[2019-08-11] MEDS: Benzonatate 100 MG Capsule PO (13:05)
--- NOTE | 2019-08-13 09:00 | CASEMGMT ---
Social Work Note Pt discharged home 08/11/2019. SW faxed completed discharge paperwork to [facility] and wrote on fax coversheet that pt discharged home 08/11/2019. Cheyanne Cee WELFARE PROJECT MANAGER, PHARMACY CLINICAL COORDINATOR
--- NOTE | 2019-08-13 15:56 | CASEMGMT ---
Case Management DC F/u Call: DC Date: 08/11/2019 DC Diagnosis: Acute COPD exacerbation DC Disposition: Home with [facility], On Home O2 w/Dasco Lace/Strata: 03/22 Called patient listed cell phone number on demographics, number listed is inactive. Tammy Adler RNCM
== END 2019-08-11 14:24 | disposition home health service (06) | DRG 191 ==
LOC: ED 12:42 → MS3 14:40
PROVIDERS: Admitting Provider Family Medicine; Emergency Provider Emergency Medicine; PCP Family Medicine Geriatric Medicine; Visit Provider Internal Medicine
DX: J44.1 Chronic obstructive pulmonary disease with (acute) exacerbation (principal); J96.11 Chronic respiratory failure with hypoxia; Z99.81 Dependence on supplemental oxygen; F17.210 Nicotine dependence, cigarettes, uncomplicated; G89.4 Chronic pain syndrome; K59.09 Other constipation; G25.81 Restless legs syndrome; E03.9 Hypothyroidism, unspecified; F32.9 Major depressive disorder, single episode, unspecified; G47.33 Obstructive sleep apnea (adult) (pediatric); G40.909 Epilepsy, unspecified, not intractable, without status epilepticus; N39.46 Mixed incontinence; H40.9 Unspecified glaucoma; G47.00 Insomnia, unspecified; M51.36 Other intervertebral disc degeneration, lumbar region; Z79.891 Long term (current) use of opiate analgesic; I10 Essential (primary) hypertension; R53.81 Other malaise
CPT/HCPCS: 36415; 71045; 80048; 83605; 83880; 84484; 85025; 87040; 87633; 87804; 93005; 94640; 94667; 94668; 97162; 97166; 99285; 99406; J7050; A4216

== ENCOUNTER → 2019-08-28 11:10 | Outpatient (CLI) | payer MEDICARE, MEDICAID, SELFPAY ==
[2019-08-08 15:14] VITALS: BMI 29.2
[2019-08-28 16:12] LABS: Absolute Lymphocyte Count 1.97 X10^3/uL (0.83-4.51); Absolute Neutrophil Count 3.8 X10^3/uL (2.0-7.7); Basophil# 0.02 X10^3/uL; Basophil% 0.3 % (0-1); Eosinophil# 0.29 X10^3/uL; Eosinophils% 4.4 % (0-5); Hematocrit 40.5 % (37-47); Hemoglobin 12.9 g/dL (12.0-15.0); Lymphocyte # 1.97 X10^3/ul (4.0); Mean Corp Hgb Conc 31.9 g/dL (32-36); Mean Corpuscular Hgb 30.1 pg (27.0-32.0); Mean Corpuscular Volume 94.6 fL (81-99); Mean Platelet Vol. 9.9 fl (6.2-12.0); Monocyte# 0.52 X10^3/uL; Monocyte% 7.9 % (0-10); NRBC Flagged by Analyzer 0 % (0-5); Neutrophil # 3.76 X10^3/uL (2.7-7.7); Neutrophil % 57.2 % (47-70); Platelet Count 268 K/mm3 (150-450); RBC Distribution Width CV 13.7 % (11.6-14.6); RBC Distribution Width SD 47.2 fl (35.1-43.9); Red Blood Count 4.28 M/mm3 (4.2-5.4); White Blood Count 6.6 K/mm3 (4.4-11.0)
[2019-08-28 16:37] LABS: ALB/GLOB Ratio 0.8 RATIO (0.9-2.4); AST(SGOT) 100 U/L (15-37); Alanine Aminotransfer ALT/SGPT 70 U/L (13-56); Albumin, Serum 3.2 g/dL (3.2-5.0); Alkaline Phosphatase 109 U/L (45-117); Anion Gap 6 (5-15); BUN 16 mg/dL (7-18); BUN/Creat Ratio 22.5 RATIO (10-20); Calcium,Total 8.8 mg/dL (8.5-10.1); Chloride 104 mmol/L (98-107); Creatinine, Serum 0.71 mg/dL (0.55-1.02); EST Glomerular Filtration Rate 86 mL/min (>60); Est Glom Filt Rate - Afr Amer 105 mL/min (>60); Globulin 3.9 g/dL (2.2-4.2); Glucose 103 mg/dL (74-106); Potassium 3.6 mmol/L (3.5-5.1); Protein, Total 7.1 g/dL (6.4-8.2); Sodium Level 141 mmol/L (136-145); Thyroid Stim Hormone (TSH) 0.78 uIU/mL (0.358-3.74)
== END ==
PROVIDERS: PCP Family Medicine Geriatric Medicine; Visit Provider Family Medicine Geriatric Medicine
DX: E55.9 Vitamin D deficiency, unspecified (principal); I10 Essential (primary) hypertension
CPT/HCPCS: 36415; 80053; 82306; 84443; 85025

== ENCOUNTER → 2019-08-29 15:05 | Outpatient (CLI) | payer MEDICARE, MEDICAID, SELFPAY ==
[2019-08-08 15:14] VITALS: BMI 29.2
[2019-08-29 16:22] LABS: Amphetamine Urine VISTA NEGATIVE (<1000 ng/mL); Barbiturate Urine VISTA POSITIVE (< 200 ng/mL); Benzodiazepine Urine VISTA POSITIVE (< 200 ng/mL); Cocaine Urine VISTA NEGATIVE (< 300 ng/mL); Ecstacy Urine VISTA NEGATIVE (< 500 ng/mL); Methadone Urine VISTA POSITIVE (< 300 ng/mL); PCP Urine VISTA NEGATIVE (< 25 ng/mL); THC Urine VISTA NEGATIVE (< 50 ng/mL); Vista UDS pH Range 6
== END ==
PROVIDERS: PCP Family Medicine Geriatric Medicine; Referring Provider Anesthesiology Pain Medicine; Visit Provider Anesthesiology Pain Medicine
DX: F11.20 Opioid dependence, uncomplicated (principal)
CPT/HCPCS: 80307

== ENCOUNTER → 2019-12-11 14:20 | Outpatient (CLI) | payer MEDICARE, MEDICAID, SELFPAY ==
[2019-08-08 15:14] VITALS: BMI 29.2
[2019-12-11 17:41] LABS: Absolute Lymphocyte Count 1.66 X10^3/uL (0.83-4.51); Absolute Neutrophil Count 3.1 X10^3/uL (2.0-7.7); Basophil# 0.05 X10^3/uL; Basophil% 0.8 % (0-1); Eosinophils% 10.1 % (0-5); Hematocrit 41.6 % (37-47); Hemoglobin 12.8 g/dL (12.0-15.0); Lymphocyte # 1.66 X10^3/ul (4.0); Lymphocyte % 27.9 % (19-41); Mean Corp Hgb Conc 30.8 g/dL (32-36); Mean Corpuscular Volume 97.4 fL (81-99); Mean Platelet Vol. 10.4 fl (6.2-12.0); Monocyte# 0.52 X10^3/uL; Monocyte% 8.7 % (0-10); NRBC Flagged by Analyzer 0 % (0-5); Neutrophil # 3.11 X10^3/uL (2.7-7.7); Neutrophil % 52.2 % (47-70); Platelet Count 232 K/mm3 (150-450); RBC Distribution Width CV 13.1 % (11.6-14.6); RBC Distribution Width SD 46.2 fl (35.1-43.9); Red Blood Count 4.27 M/mm3 (4.2-5.4)
[2019-12-11 18:05] LABS: Vitamin D,25 Hydroxy 21.5 ng/mL
[2019-12-11 18:25] LABS: ALB/GLOB Ratio 0.8 RATIO (0.9-2.4); AST(SGOT) 15 U/L (15-37); Alanine Aminotransfer ALT/SGPT 21 U/L (13-56); Albumin, Serum 3.1 g/dL (3.2-5.0); Alkaline Phosphatase 96 U/L (45-117); Anion Gap 7 (5-15); BUN 11 mg/dL (7-18); BUN/Creat Ratio 16.5 RATIO (10-20); Calcium,Total 8.6 mg/dL (8.5-10.1); Chloride 106 mmol/L (98-107); Creatinine, Serum 0.67 mg/dL (0.55-1.02); EST Glomerular Filtration Rate 93 mL/min (>60); Est Glom Filt Rate - Afr Amer 113 mL/min (>60); Glucose 190 mg/dL (74-106); Potassium 3.8 mmol/L (3.5-5.1); Protein, Total 7.1 g/dL (6.4-8.2); Sodium Level 142 mmol/L (136-145); Thyroid Stim Hormone (TSH) 0.64 uIU/mL (0.358-3.74)
== END ==
PROVIDERS: PCP Family Medicine Geriatric Medicine; Visit Provider Family Medicine Geriatric Medicine
DX: E55.9 Vitamin D deficiency, unspecified (principal); I10 Essential (primary) hypertension
CPT/HCPCS: 36415; 80053; 82306; 84443; 85025

== ENCOUNTER → 2020-03-11 14:33 | Outpatient (CLI) | payer MEDICARE, MEDICAID, SELFPAY ==
[2019-08-08 15:14] VITALS: BMI 29.2
[2020-03-11 17:50] LABS: Absolute Lymphocyte Count 1.63 X10^3/uL (0.83-4.51); Absolute Neutrophil Count 6.6 X10^3/uL (2.0-7.7); Basophil# 0.05 X10^3/uL; Basophil% 0.6 % (0-1); Eosinophils% 2.2 % (0-5); Hematocrit 43.8 % (37-47); Hemoglobin 13.7 g/dL (12.0-15.0); Lymphocyte # 1.63 X10^3/ul (4.0); Mean Corp Hgb Conc 31.3 g/dL (32-36); Mean Corpuscular Hgb 29.5 pg (27.0-32.0); Mean Corpuscular Volume 94.2 fL (81-99); Mean Platelet Vol. 10.5 fl (6.2-12.0); Monocyte# 0.56 X10^3/uL; Monocyte% 6.2 % (0-10); NRBC Flagged by Analyzer 0 % (0-5); Neutrophil # 6.59 X10^3/uL (2.7-7.7); Neutrophil % 72.7 % (47-70); Platelet Count 256 K/mm3 (150-450); RBC Distribution Width CV 13.2 % (11.6-14.6); RBC Distribution Width SD 45.8 fl (35.1-43.9); Red Blood Count 4.65 M/mm3 (4.2-5.4); White Blood Count 9.1 K/mm3 (4.4-11.0)
[2020-03-11 18:03] LABS: ALB/GLOB Ratio 0.8 RATIO (0.9-2.4); AST(SGOT) 15 U/L (15-37); Alanine Aminotransfer ALT/SGPT 22 U/L (13-56); Albumin, Serum 3.3 g/dL (3.2-5.0); Alkaline Phosphatase 120 U/L (45-117); Anion Gap 5 (5-15); BUN 13 mg/dL (7-18); BUN/Creat Ratio 21.8 RATIO (10-20); Calcium,Total 8.8 mg/dL (8.5-10.1); Chloride 102 mmol/L (98-107); EST Glomerular Filtration Rate 106 mL/min (>60); Est Glom Filt Rate - Afr Amer 128 mL/min (>60); Globulin 4.2 g/dL (2.2-4.2); Glucose 128 mg/dL (74-106); Protein, Total 7.5 g/dL (6.4-8.2); Sodium Level 138 mmol/L (136-145); Thyroid Stim Hormone (TSH) 0.67 uIU/mL (0.358-3.74)
== END ==
PROVIDERS: PCP Family Medicine Geriatric Medicine; Visit Provider Family Medicine Geriatric Medicine
DX: E55.9 Vitamin D deficiency, unspecified (principal); I10 Essential (primary) hypertension
CPT/HCPCS: 36415; 80053; 82306; 84443; 85025

== ENCOUNTER → 2020-05-13 15:24 | Outpatient (CLI) | payer MEDICARE, MEDICAID, SELFPAY ==
[2020-05-13 14:19] VITALS: BMI 30.9
[2020-05-13 16:34] LABS: Vitamin B12 826 pg/mL (211-911)
[2020-05-20 03:06] LABS: Free Lambda Light Chains 15.8 mg/L (5.7-26.3)
[2020-05-20 08:26] LABS: Trileptal-Oxcarbazepine 25 ug/mL (10-35)
== END ==
PROVIDERS: PCP Family Medicine Geriatric Medicine; Referring Provider Psychiatry & Neurology Neurology; Visit Provider Psychiatry & Neurology Neurology
DX: G62.9 Polyneuropathy, unspecified (principal); G40.909 Epilepsy, unspecified, not intractable, without status epilepticus
CPT/HCPCS: 36415; 80184; 82140; 82542; 82607; 82746; 83883

== ENCOUNTER → 2020-06-16 11:36 | Outpatient (CLI) | payer MEDICARE, SELFPAY ==
[2020-05-13 14:19] VITALS: BMI 30.9
[2020-06-16 17:09] LABS: Absolute Lymphocyte Count 1.64 X10^3/uL (0.83-4.51); Absolute Neutrophil Count 5.1 X10^3/uL (2.0-7.7); Basophil# 0.05 X10^3/uL; Basophil% 0.6 % (0-1); Eosinophil# 0.37 X10^3/uL; Eosinophils% 4.7 % (0-5); Hematocrit 44.3 % (37-47); Hemoglobin 13.9 g/dL (12.0-15.0); Lymphocyte # 1.64 X10^3/ul (4.0); Mean Corp Hgb Conc 31.4 g/dL (32-36); Mean Corpuscular Hgb 29.8 pg (27.0-32.0); Mean Corpuscular Volume 95.1 fL (81-99); Mean Platelet Vol. 10.2 fl (6.2-12.0); Monocyte# 0.58 X10^3/uL; Monocyte% 7.4 % (0-10); NRBC Flagged by Analyzer 0 % (0-5); Neutrophil # 5.09 X10^3/uL (2.7-7.7); Neutrophil % 65.4 % (47-70); Platelet Count 270 K/mm3 (150-450); RBC Distribution Width CV 13.5 % (11.6-14.6); RBC Distribution Width SD 47.4 fl (35.1-43.9); Red Blood Count 4.66 M/mm3 (4.2-5.4); White Blood Count 7.8 K/mm3 (4.4-11.0)
[2020-06-16 17:16] LABS: Vitamin D,25 Hydroxy 27.2 ng/mL
[2020-06-16 17:27] LABS: ALB/GLOB Ratio 0.8 RATIO (0.9-2.4); AST(SGOT) 15 U/L (15-37); Alanine Aminotransfer ALT/SGPT 22 U/L (13-56); Albumin, Serum 3.4 g/dL (3.2-5.0); Alkaline Phosphatase 136 U/L (45-117); Anion Gap 6 (5-15); BUN 13 mg/dL (7-18); BUN/Creat Ratio 19.5 RATIO (10-20); Calcium,Total 8.8 mg/dL (8.5-10.1); Chloride 104 mmol/L (98-107); Creatinine, Serum 0.67 mg/dL (0.55-1.02); EST Glomerular Filtration Rate 93 mL/min (>60); Est Glom Filt Rate - Afr Amer 112 mL/min (>60); Globulin 4.1 g/dL (2.2-4.2); Glucose 119 mg/dL (74-106); Protein, Total 7.5 g/dL (6.4-8.2); Sodium Level 140 mmol/L (136-145); Thyroid Stim Hormone (TSH) 0.43 uIU/mL (0.358-3.74)
== END ==
PROVIDERS: PCP Family Medicine Geriatric Medicine; Visit Provider Family Medicine Geriatric Medicine
DX: I10 Essential (primary) hypertension (principal); E55.9 Vitamin D deficiency, unspecified
CPT/HCPCS: 36415; 80053; 82306; 84443; 85025

== ENCOUNTER → 2020-08-28 15:39 | Outpatient (CLI) | payer MEDICARE, MEDICAID, SELFPAY ==
[2020-06-30 07:25] VITALS: BMI 30.9
[2020-08-28 17:09] LABS: Absolute Lymphocyte Count 1.66 X10^3/uL (0.83-4.51); Absolute Neutrophil Count 5.3 X10^3/uL (2.0-7.7); Basophil# 0.04 X10^3/uL; Basophil% 0.5 % (0-1); Eosinophil# 0.22 X10^3/uL; Eosinophils% 2.8 % (0-5); Hematocrit 40.3 % (37-47); Hemoglobin 13.2 g/dL (12.0-15.0); Lymphocyte # 1.66 X10^3/ul (4.0); Mean Corp Hgb Conc 32.8 g/dL (32-36); Mean Corpuscular Hgb 30.3 pg (27.0-32.0); Mean Corpuscular Volume 92.4 fL (81-99); Mean Platelet Vol. 9.7 fl (6.2-12.0); Monocyte# 0.69 X10^3/uL; Monocyte% 8.7 % (0-10); NRBC Flagged by Analyzer 0 % (0-5); Neutrophil # 5.26 X10^3/uL (2.7-7.7); Neutrophil % 66.4 % (47-70); Platelet Count 327 K/mm3 (150-450); RBC Distribution Width CV 13.3 % (11.6-14.6); RBC Distribution Width SD 45.6 fl (35.1-43.9); Red Blood Count 4.36 M/mm3 (4.2-5.4); White Blood Count 7.9 K/mm3 (4.4-11.0)
[2020-08-28 17:30] LABS: Vitamin D,25 Hydroxy 49.8 ng/mL
[2020-08-28 17:35] LABS: ALB/GLOB Ratio 0.9 RATIO (0.9-2.4); AST(SGOT) 15 U/L (15-37); Alanine Aminotransfer ALT/SGPT 20 U/L (13-56); Albumin, Serum 3.4 g/dL (3.2-5.0); Alkaline Phosphatase 108 U/L (45-117); Anion Gap 6 (5-15); BUN 9 mg/dL (7-18); BUN/Creat Ratio 14.1 RATIO (10-20); Calcium,Total 8.9 mg/dL (8.5-10.1); Chloride 95 mmol/L (98-107); Creatinine, Serum 0.64 mg/dL (0.55-1.02); EST Glomerular Filtration Rate 98 mL/min (>60); Est Glom Filt Rate - Afr Amer 118 mL/min (>60); Globulin 3.8 g/dL (2.2-4.2); Glucose 117 mg/dL (74-106); Potassium 4.1 mmol/L (3.5-5.1); Protein, Total 7.2 g/dL (6.4-8.2); Sodium Level 132 mmol/L (136-145); Thyroid Stim Hormone (TSH) 0.43 uIU/mL (0.358-3.74)
== END ==
PROVIDERS: PCP Family Medicine Geriatric Medicine; Visit Provider Family Medicine Geriatric Medicine
DX: E55.9 Vitamin D deficiency, unspecified (principal); I10 Essential (primary) hypertension
CPT/HCPCS: 36415; 80053; 82306; 84443; 85025

== ENCOUNTER 2020-08-29 15:36 | Outpatient (RCR) | payer MEDICARE, SELFPAY ==
[2020-06-30 07:25] VITALS: BMI 30.9
[2020-08-29] MEDS: COVID-19 VACC, MRNA(PFIZER)/PF 30 MCG/0.3 ML SYRINGE IM (14:48)
[2020-09-19] MEDS: COVID-19 VACC, MRNA(PFIZER)/PF 30 MCG/0.3 ML SYRINGE IM (14:44)
== END 2020-11-25 23:59 ==
LOC: IMMUN 15:36
PROVIDERS: PCP Family Medicine Geriatric Medicine; Referring Provider Family Medicine; Visit Provider Family Medicine
DX: Z23 Encounter for immunization (principal)
CPT/HCPCS: 0001A; 0002A; 91300

== ENCOUNTER 2020-09-15 14:36 | Emergency (ER) | payer MEDICARE, MEDICAID, SELFPAY ==
[2020-09-15 14:37] VITALS: BP 144/92; PULSE 93; RESP 25; TEMP 37.4; O2SAT 95; BMI 36.5
--- NOTE | 2020-09-15 15:01 | CT_ITS ---
STUDY: CT ABDOMEN AND PELVIS WITHOUT CONTRAST REASON FOR EXAM: Female, 70 years old. Pain. Constipation. History of cholecystectomy and appendectomy. History of right oophrectomy. RADIATION DOSAGE (If Supplied By Facility): CTDIvol = ( 18.55 ) mGy, DLP = ( 866.70 ) mGycm TECHNIQUE: Transaxial images were obtained from the dome of the diaphragm to the symphysis pubis without oral contrast, and without intravenous contrast. Sagittal and coronal images were reconstructed. Individualized dose optimization techniques were used for this CT. COMPARISON: 06/26/2019. FINDINGS: Mild emphysematous changes of the lung bases without mass or infiltrate. The visualized portions of the heart are within normal limits. Normal liver. There are surgical clips in the gallbladder fossa consistent with a prior cholecystectomy. Normal spleen. Partial fatty replacement of the pancreas without mass. Normal bilateral adrenal glands. Normal right kidney. Normal left kidney. Normal visualized ureters. Hiatal hernia. The stomach is otherwise unremarkable. Normal small intestine. Diverticulosis without acute inflammatory change. Again seen is soft tissue thickening of the soft tissues of the presacral region which extends downward to the rectum. The possibility of a mass cannot be ruled out. There is non-visualization of the appendix. There is diffuse atherosclerotic calcification of the abdominal aorta, without a demonstrated aneurysm. Normal inferior vena cava. Normal retroperitoneum. Normal urinary bladder. Normal uterus. Ovaries not visualized. There is no pelvic lymphadenopathy. No free air or free fluid is seen within the peritoneal cavity. Normal abdominal wall. Mild degenerative changes lumbar spine. Again seen is severe spinal stenosis at L4-5. There is a right hip replacement. CT/Abdomen/Pelvis without Cont IMPRESSION: 1. Question rectal mass. This appears unchanged from the prior study. 2. No evidence of other acute intra-abdominal process or interval change. Electronically Signed: Tony Mckeon DO at 16:40 EDT Tel [phone], Service support ,
[2020-09-15] MEDS: Ipratropium/Albuterol Sulfate 3 ML AMPUL.NEB INHALATION (15:08)
[2020-09-15 15:09] VITALS: PULSE 85; RESP 20
[2020-09-15 15:23] LABS: Absolute Lymphocyte Count 1.34 X10^3/uL (0.83-4.51); Absolute Neutrophil Count 5.5 X10^3/uL (2.0-7.7); Basophil# 0.05 X10^3/uL; Basophil% 0.6 % (0-1); Eosinophil# 0.21 X10^3/uL; Eosinophils% 2.7 % (0-5); Hematocrit 39.5 % (37-47); Hemoglobin 13.2 g/dL (12.0-15.0); Lymphocyte # 1.34 X10^3/ul (4.0); Mean Corp Hgb Conc 33.4 g/dL (32-36); Mean Corpuscular Hgb 30.8 pg (27.0-32.0); Mean Corpuscular Volume 92.1 fL (81-99); Mean Platelet Vol. 8.8 fl (6.2-12.0); Monocyte# 0.69 X10^3/uL; Monocyte% 8.8 % (0-10); NRBC Flagged by Analyzer 0 % (0-5); Neutrophil # 5.53 X10^3/uL (2.7-7.7); Neutrophil % 70.3 % (47-70); Platelet Count 291 K/mm3 (150-450); RBC Distribution Width CV 13.2 % (11.6-14.6); RBC Distribution Width SD 44.3 fl (35.1-43.9); Red Blood Count 4.29 M/mm3 (4.2-5.4); White Blood Count 7.9 K/mm3 (4.4-11.0)
[2020-09-15 15:25] LABS: Bacteria 0 SEEN /hpf (None Seen); Mucous, Urine 0 SEEN /hpf (<or=2+); Red Blood Cells-Urine 0 SEEN /hpf (0-5); Squamous Epithelial Cells - UA 0 SEEN /hpf (5-10); White Blood Cells 0 SEEN /hpf (0-5)
[2020-09-15] MEDS: Ondansetron 4 MG/2 ML Vial IV (15:29)
[2020-09-15] MEDS: 0.9% Normal Saline 1,000 ML 1000 ML IV (15:29)
[2020-09-15] MEDS: Morphine 4 MG/ML Syringe IV (15:29)
[2020-09-15 15:30] LABS: Color, Urine Yellow (Yellow); Glucose, Dipstick Normal (Normal); Ketone-Dipstick 5 mg/dl (Negative); Leukocyte Esterase-Dipstick 25 /ul (Negative); Nitrite-Dipstick Negative (Negative); Occult Blood-Urine Negative /ul (Negative); Protein-Dipstick Negative (Negative); Specific Gravity, Urine 1.015 (1.002-1.030); Urine Bilirubin Dipstick Negative (Negative); Urine Clarity Clear (Clear); Urine Urobilinogen 1 mg/dl (Normal); Urine pH 6.5 (5.0 - 8.0)
[2020-09-15 15:33] LABS: ALB/GLOB Ratio 0.8 RATIO (0.9-2.4); AST(SGOT) 16 U/L (15-37); Alanine Aminotransfer ALT/SGPT 18 U/L (13-56); Albumin, Serum 3.2 g/dL (3.2-5.0); Alkaline Phosphatase 100 U/L (45-117); Anion Gap 6 (5-15); BUN 7 mg/dL (7-18); Calcium,Total 8.8 mg/dL (8.5-10.1); Chloride 95 mmol/L (98-107); Creatinine, Serum 0.54 mg/dL (0.55-1.02); EST Glomerular Filtration Rate 119 mL/min (>60); Est Glom Filt Rate - Afr Amer 144 mL/min (>60); Estimated Creatinine Clearance 44.56 ml/min; Glucose 126 mg/dL (74-106); Lipase 40 U/L (73-393); Protein, Total 7.2 g/dL (6.4-8.2); Sodium Level 131 mmol/L (136-145)
[2020-09-15 16:41] VITALS: BP 115/60; PULSE 71; RESP 16; O2SAT 93
--- NOTE | 2020-09-15 16:47 | ED.VISSUMM ---
- ER Visit Summary Date of Service: 09/15/20 Chief Complaint: Abdominal pain History of Present Illness: The patient is a [address] Veliz. She reports that she has diffuse abdominal pain that began today. Is an aching pain is 10 out of 10 at worst 9 out of 10 currently. Is worsened by nothing relieved by nothing. She had nausea, but no vomiting. She reports her last bowel was 3 days ago. Typically she goes daily. She denies any blood in her stools or black tarry stools. Patient also reports that she has not urinated for 2 days. Physical Examination: Vitals: Stable. Afebrile. General: Well-nourished and well-developed. Head: Normocephalic atraumatic. Neck: Supple, no lymphadenopathy. No JVD. Nontender. Cardiovascular: Regular rate and rhythm. No murmurs. Respiratory: No respiratory distress. Clear to auscultation bilaterally. Poor air movement. Abdominal: Soft, mild diffuse tenderness to palpation, nondistended, normal bowel sounds. No guarding, rebound, or peritoneal signs. Back: Nontender. Extremities: Nontender, no edema. Skin: Normal color, no rash. Neurologic: Alert and oriented ?3. Cranial nerves II through XII are intact. Normal strength and sensation. Psych: Normal affect. Test Results: CBC shows lymphocytes 17. Chem-7 shows a sodium 131, chloride 95, glucose 126, creatinine 0.54. LFTs are normal. Lipase is normal. Urinalysis is negative. Clinical Impression(s) from Imaging Studies Abdomen/Pelvis CT 09/15/20 15:01 IMPRESSION: 1. Question rectal mass. This appears unchanged from the prior study. 2. No evidence of other acute intra-abdominal process or interval change. Electronically Signed: Tony MckeonDO at 16:40 EDT Tel [phone], Service support , Emergency Department Course and Treatment: Patient had an IV placed. She was given morphine and Zofran IV. She was given albuterol Atrovent aerosols. She is resting comfortably. When the CT returned I did ask if she had had a colonoscopy previously and she states that her last was approximately 2 years ago. She does not remember who performed this. Treatment Plan: Patient will be discharged with Zofran. Instructed to follow-up with Dr. Veliz in 1 to 2 days if not improving. She is also to speak with Dr. Veliz about possible referral for a another colonoscopy. Return to the emergency department for any worsening symptoms. Disposition: To home in improved and stable condition. Impression: 1. Abdominal pain, uncertain cause. 2. Questionable rectal mass. This note was generated with [employer] dictation software. It may contain incorrect words, spelling, and punctuation that were not noted in review of the chart prior to signing ED Disposition - Plan for ED Patient: Disposition: Home or Assisted Living Instructions: ED Abdominal Pain Unkn Cause Fem Prescriptions: Ondansetron [Zofran Odt] 4 mg PO Q8H PRN PRN #10 tablet PRN Reason: Nausea Prescription Printed Referrals: Patel Veliz Chi, MD [Primary Care Provider] - 1-2 Days if not improving
[2020-09-15 17:04] VITALS: BP 117/54; PULSE 82; RESP 13; O2SAT 94
== END 2020-09-15 17:14 | disposition home or self-care (01) ==
PROVIDERS: Emergency Provider Emergency Medicine; PCP Family Medicine Geriatric Medicine
DX: R10.9 Unspecified abdominal pain (principal); R11.0 Nausea; J44.9 Chronic obstructive pulmonary disease, unspecified; Z72.0 Tobacco use; Z79.899 Other long term (current) drug therapy
CPT/HCPCS: 74176; 80053; 81001; 83690; 85025; 94640; 96361; 96374; 96375; 99285; J7030; A4216; J2405

== ENCOUNTER → 2020-09-30 14:49 | Outpatient (CLI) | payer MEDICARE, MEDICAID, SELFPAY ==
[2020-09-15 14:37] VITALS: BMI 36.5
--- NOTE | 2020-09-30 15:00 | RAD_ITS ---
STUDY: X-RAY - ABDOMEN/PELVIS REASON FOR EXAM: Female, 70 years old. FECAL IMPACTION TECHNIQUE: AP supine and decubitus views of the abdomen and pelvis. COMPARISON: X-ray September 15, 2020 FINDINGS: Normal visualized lung bases. There is an unremarkable bowel gas pattern. No dilated loops of bowel. There is mild to moderate stool. There is no demonstrated free abdominal air. There are surgical clips in the right upper quadrant of the abdomen. Normal soft tissue structures. There is mild degenerative change of the spine. There is right hip replacement. There is degenerative change of the left hip. RAD/Abd Inc Decub and/or Erect IMPRESSION: No obstruction. Electronically Signed: Ang Mazariegos MD at 16:21 EDT , Service support ,
== END ==
PROVIDERS: PCP Family Medicine Geriatric Medicine; Referring Provider Family Medicine Geriatric Medicine; Visit Provider Family Medicine Geriatric Medicine
DX: K56.41 Fecal impaction (principal)
CPT/HCPCS: 74019

== ENCOUNTER 2020-10-20 12:45 | Inpatient (IN) | payer MEDICARE, MEDICAID, SELFPAY ==
[2020-10-13 14:33] VITALS: BMI 30.9
[2020-10-20] VITALS (7 sets, daily range): BP systolic 106–190; BP diastolic 64–148; PULSE 82–103; RESP 14–26; TEMP 36.9–37.2; O2SAT 97–100; BMI 31.8; BMI 31.2
--- NOTE | 2020-10-20 13:37 | CT_ITS ---
STUDY: CT ABDOMEN AND PELVIS WITHOUT CONTRAST REASON FOR EXAM: Female, 70 years old. Abdominal pain following a recent fall. RADIATION DOSAGE (If Supplied By Facility): CTDIvol = ( 14.79 ) mGy, DLP = ( 785.77 ) mGycm TECHNIQUE: Transaxial images were obtained from the dome of the diaphragm to the symphysis pubis without oral contrast, and without intravenous contrast. Sagittal and coronal images were reconstructed. Individualized dose optimization techniques were used for this CT. COMPARISON: Comparison is made with prior examination dated 09/15/2020. FINDINGS: Minimal increased markings at the lung bases suggest mild scarring. The visualized portions of the heart are within normal limits. Normal liver. There are surgical clips in the gallbladder fossa consistent with a prior cholecystectomy. Normal spleen. There are pancreatic calcifications in the distribution of the ducts consistent with chronic pancreatitis. Normal bilateral adrenal glands. Normal right kidney. Normal left kidney. There is a small hiatal hernia. Normal small intestine. There are scattered colonic diverticula consistent with diverticulosis. There is non-visualization of the appendix. There is diffuse atherosclerotic calcification of the abdominal aorta and its major visceral branches, without a demonstrated aneurysm. Normal inferior vena cava. Normal retroperitoneum. Normal urinary bladder. There is absence of the uterus consistent with a prior hysterectomy. Normal abdominal wall. There are mild degenerative changes of the visualized lumbar spine. Minimal anterior listhesis of L4 on L5 most likely secondary to facet joint osteoarthritis. Status post right total hip replacement. CT/Abdomen/Pelvis without Cont IMPRESSION: Scattered sigmoid diverticula. Status post cholecystectomy. No acute abnormality is seen. Electronically Signed: Isaias Munroe MD at 15:11 EDT , Service support ,
--- NOTE | 2020-10-20 13:37 | EKG12_ITS ---
Test Reason : ABD PAIN Blood Pressure : / mmHG Vent. Rate : 092 BPM Atrial Rate : 092 BPM P-R Int : 146 ms QRS Dur : 090 ms QT Int : 346 ms P-R-T Axes : 087 -30 074 degrees QTc Int : 427 ms Normal sinus rhythm Left axis deviation Low voltage QRS (Limb Leads) Poor R wave progression Anteroseptal CT, age undetermined, cannot be excluded Nonspecific T wave abnormality Abnormal ECG Confirmed by JAMES LEACH, LUZ ([id number]), medical transcription editor WESLY CASTAÑEDA ([id number]) on 10/22/2020 8:56:05 AM Referred By: LAURO/VIV Confirmed By:LUZ RAMIREZ MD
[2020-10-20] MEDS: Ipratropium/Albuterol Sulfate 3 ML AMPUL.NEB INHALATION ×2 (13:50→20:32)
[2020-10-20 13:58] LABS: Absolute Lymphocyte Count 1.61 X10^3/uL (0.83-4.51); Absolute Neutrophil Count 6.8 X10^3/uL (2.0-7.7); Basophil# 0.03 X10^3/uL; Basophil% 0.3 % (0-1); Eosinophil# 0.08 X10^3/uL; Eosinophils% 0.9 % (0-5); Hematocrit 40.7 % (37-47); Hemoglobin 13.3 g/dL (12.0-15.0); Lymphocyte # 1.61 X10^3/ul (0.83-4.51); Lymphocyte % 17.3 % (19-41); Mean Corp Hgb Conc 32.7 g/dL (32-36); Mean Corpuscular Hgb 29.6 pg (27.0-32.0); Mean Corpuscular Volume 90.6 fL (81-99); Monocyte# 0.76 X10^3/uL; Monocyte% 8.2 % (0-10); NRBC Flagged by Analyzer 0 % (0-5); Neutrophil # 6.76 X10^3/uL (2.7-7.7); Neutrophil % 72.9 % (47-70); Platelet Count 349 K/mm3 (150-450); RBC Distribution Width CV 13.4 % (11.6-14.6); RBC Distribution Width SD 45.1 fl (35.1-43.9); Red Blood Count 4.49 M/mm3 (4.2-5.4); White Blood Count 9.3 K/mm3 (4.4-11.0)
--- NOTE | 2020-10-20 14:00 | RAD_ITS ---
STUDY: X-RAY - RIGHT FOOT CLINICAL: Female, 70 years old. Injury TECHNIQUE: 3 view(s) of the foot. COMPARISON: None. FINDINGS: Normal talus, calcaneus, and tarsal bones. Prior ORIF of the distal fibula. Degenerative changes of the tarsal articulations as well as the tarsal metatarsal articulations. There is demineralization of the metatarsi. There is degenerative arthrosis of the metatarsophalangeal joint of the hallux with a hallux valgus deformity. Normal tibial and fibular sesamoid bones. Normal interphalangeal joint of the great toe. Normal phalanges of the great toe. Normal second through fifth metatarsophalangeal joints. Normal interphalangeal joints and phalanges of the lesser toes. There is non-specific soft tissue swelling of the foot. RAD/Foot min 3 Views IMPRESSION: Degenerative changes of the tarsal articulations. Hallux valgus deformity. Status post ORIF of the distal fibula. Electronically Signed: Isaias Munroe MD at 14:18 EDT , Service support ,
--- NOTE | 2020-10-20 14:00 | RAD_ITS ---
STUDY: X-RAY CHEST REASON FOR EXAM: Female, 70 years old. Sob TECHNIQUE: Single AP portable view of the chest. COMPARISON: Comparison is made with prior study dated 08/08/2019. FINDINGS: EKG electrodes are seen. Hyperinflation. The lungs are clear. There is no demonstrated pleural abnormality. Normal size heart. Normal mediastinum and denae. Normal visualized pulmonary arteries. Normal visualized aortic arch and descending thoracic aorta. There are diffuse degenerative changes of the visualized thoracic spine. There is degenerative osteoarthritis of the bilateral shoulders. Small hiatal hernia. RAD/Chest 1 View (Portable) IMPRESSION: Hyperinflation. The lungs are clear. Electronically Signed: Isaias Munroe MD at 14:16 EDT , Service support ,
--- NOTE | 2020-10-20 14:03 | NURSING ---
PER LAB, PT, PTT AND BMP HEMOLIZED. WILL SEND NEW LABELS
[2020-10-20] MEDS: Albuterol 2.5 MG/3 ML VIAL.NEB. INHALATION ×2 (14:08)
[2020-10-20 14:52] LABS: Anion Gap 8 (5-15); BUN 10 mg/dL (7-18); Chloride 98 mmol/L (98-107); Creatinine, Serum 0.56 mg/dL (0.55-1.02); EST Glomerular Filtration Rate 114 mL/min (>60); Est Glom Filt Rate - Afr Amer 138 mL/min (>60); Estimated Creatinine Clearance 46.43 ml/min; Glucose 135 mg/dL (74-106); Potassium 3.4 mmol/L (3.5-5.1); Sodium Level 136 mmol/L (136-145)
[2020-10-20 14:58] LABS: International Normalized Ratio 1.1; Partial Thromboplast Time 29.9 Seconds (24.1-36.2); Prothrombin Time (Protime)PT. 13.5 SECONDS (11.7-14.9)
[2020-10-20] MEDS: fentaNYL 100 MCG/2 ML Ampul 25 MCG IV (16:03)
--- NOTE | 2020-10-20 17:15 | RAD_ITS ---
INDICATION: pain EXAMINATION/TECHNIQUE: X-RAY - RIGHT XR Ankle Min 3 Views COMPARISON: None. FINDINGS: No acute fracture or malalignment. No blastic or lytic lesions. Prior ORIF of the distal fibula. Degenerative changes of the tarsal articulations, tarsal metatarsal articulations and tibiotalar articulation. Mild soft tissue swelling of the ankle. Diffuse demineralization. RAD/Ankle min 3 Views IMPRESSION: Mild soft tissue swelling of the ankle. No fracture. Degenerative changes of the midfoot and hindfoot. Status post ORIF of the distal fibula. Electronically Signed: Dorian Castle MD at 17:52 EDT Tel , Service support ,
--- NOTE | 2020-10-20 17:20 | EDS_ITS ---
HPI History of Present Illness Chief Complaint: Abd Pain Detail of Chief Complaint: Abdominal pain, right foot pain status post fall Informant: patient Onset/Context/Timing Onset: Yesterday Current Severity: Moderate Maximum Severity: Moderate Narrative Narrative: Patient lives in assisted living. She wears chronic home O2 secondary to COPD. She ambulates with a walker. Patient states yesterday she was walking with her walker when her knee gave out on her and she fell. She is complaining of increased pain to her right foot and difficulty bearing weight. Patient also does note increased shortness of breath and wheezing with her COPD. Today she noted anterior abdominal wall pain and stated that she did fall onto her abdomen. She denies blood in her urine or stool. [facility] Medical History COPD (chronic obstructive pulmonary disease) Degenerative disc disease, lumbar Depression Gastritis Hypertension Insomnia Obstructive sleep apnea Pain, chronic Physical debility Restless leg syndrome Seizure disorder Smokes with greater than 40 pack year history Home Medications aspirin 81 mg PO DAILY 01/07/19 [History Last Taken 08/07/19] duloxetine 20 mg PO DAILY 01/07/19 [History Last Taken 08/07/19] levothyroxine 50 mcg PO DAILY 01/07/19 [History Last Taken 08/08/19] potassium chloride 20 meq PO BID 01/07/19 [History Last Taken 08/08/19] risperidone 0.25 mg PO DAILY 01/07/19 [History Last Taken 08/08/19] temazepam 2 tablet PO QHS 01/07/19 [History Last Taken 08/07/19] mirtazapine 7.5 mg tablet 7.5 mg PO QHS tablet 02/21/19 [History Last Taken 08/07/19] latanoprost (PF) 1 drp EACHEYE QHS 08/08/19 [History Last Taken 08/07/19] methadone 10 mg PO TID 08/08/19 [History Last Taken 08/08/19] methylnaltrexone 150 mg PO DAILY 08/08/19 [History Last Taken 08/08/19] nicotine 1 patch TOPICAL DAILY 08/08/19 [History Last Taken 08/08/19] ropinirole 2 mg PO QHS 08/08/19 [History Last Taken 08/07/19] acetaminophen 650 mg PO Q6H PRN PRN tablet 08/11/19 [Rx Last Taken Unknown] albuterol sulfate 90 mcg/actuation aerosol inhaler 1 inh INHALATION ONCE 05/13/20 [History Last Taken Unknown] calcium carbonate 500 mg calcium (1,250 mg) tablet 500 mg PO DAILY 05/13/20 [History Last Taken Unknown] fluticasone furoate 100 mcg-vilanterol 25 mcg/dose inhalation powder 2 puff INHALATION DAILY 05/13/20 [History Last Taken Unknown] mirabegron 25 mg tablet,extended release 24 hr 25 mg PO BID tab 05/13/20 [History Last Taken Unknown] multivitamin 1 tab PO DAILY 05/13/20 [History Last Taken Unknown] omeprazole 20 mg capsule,delayed release 20 mg PO DAILY cap 05/13/20 [History Last Taken Unknown] sennosides 8.6 mg-docusate sodium 50 mg tablet 1 tab-cap PO QHS 05/13/20 [History Last Taken Unknown] brimonidine 0.15 % eye drops 1 drp OPHTHALMIC BID 07/09/20 [History Last Taken Unknown] ondansetron 4 mg PO Q8H PRN PRN #10 tablet 09/15/20 [Rx Last Taken Unknown] benztropine 2 mg tablet 2 mg PO BID #60 tab 10/13/20 [Rx Last Taken Unknown] cholecalciferol (vitamin D3) 1,250 mcg (50,000 unit) capsule 1,250 mcg PO QWEEK #4 cap 10/13/20 [Rx Last Taken Unknown] oxcarbazepine 600 mg tablet 600 mg PO BID #60 tab 10/13/20 [Rx Last Taken Unknown] phenobarbital 32.4 mg tablet 32.4 mg PO BID #60 tab 10/13/20 [Rx Last Taken Unknown] Allergy/AdvReac Type Severity Reaction Status Date / Time codeine Allergy Mild HIVES Verified 10/20/20 12:50 Penicillins Allergy Anaphylaxis Verified 10/20/20 12:50 Family History Mother Diabetes Heart disease Hypertension CAD (coronary artery disease) CVA (cerebral vascular accident) Thyroid disorder Father Colon cancer Surgical History History of bilateral carpal tunnel release History of bilateral cataract extraction History of blepharoplasty History of cystoscopy History of esophagogastroduodenoscopy (EGD) (~03/07/19) History of right hip replacement History of right salpingo-oophorectomy S/P appendectomy S/P laparoscopic cholecystectomy Status post ORIF of fracture of ankle Social History Smoking Status: Current every day smoker tobacco type: cigarettes Tobacco: How many years used: 48 alcohol intake: never substance use type: does not use ROS ROS ED Constitutional Constitutional ED: Denies chills or fever(s) Eyes Eyes: Denies change in vision ENT ENT ED: Denies sore throat Cardiovascular Cardiovascular: Denies chest pain Respiratory/Chest Respiratory/Chest: Denies cough or dyspnea Gastrointestinal Gastrointestinal: Reports abdominal pain; Denies diarrhea, nausea or vomiting Genitourinary Genitourinary ED: Denies dysuria Musculoskeletal Musculoskeletal: Reports arthralgias; Denies back pain Integumentary Denies rash Neurologic Neurologic: Denies headache(s) or weakness Psychiatric Psychiatric: Denies anxiety or depression Endocrine Endocrinology: Denies polydipsia or polyuria Allergic/Immunologic Allergic/Immunologic ED: Denies urticaria EXAM Physical Exam Const Vital Signs: 10/20/20 12:46 10/20/20 13:50 10/20/20 15:28 Temperature 98.9 F Temperature Source Oral Pulse Rate 90 92 88 Respiratory Rate 22 H 26 H 14 Blood Pressure 190/148 H 114/64 Blood Pressure Mean 162 80 Pulse Ox 97 97 100 Oxygen Delivery Method Nasal Cannula Nasal Cannula Nasal Cannula Oxygen Flow Rate (L/min) 3 3 3 10/20/20 17:03 Temperature Temperature Source Pulse Rate 103 H Respiratory Rate 19 H Blood Pressure Blood Pressure Mean Pulse Ox 98 Oxygen Delivery Method Nasal Cannula Oxygen Flow Rate (L/min) 3 Positive well nourished and well developed General Appearance ED: well developed HEENT Reports normocephalic and head/scalp atraumatic Eyes PERRL and EOMs intact bilaterally Neck supple Chest Wall inspection of chest normal and palpation of chest normal Resp normal respiratory effort Auscultation: wheezes expiratory wheezes Cardio regular rate and regular rhythm GI Palpation: soft and tender other (Mild lower abdominal tenderness palpation.) Back/Spine no CVA tenderness Extremity Extremity Narrative: Tenderness diffusely over the foot. No obvious deformity. General Extremety ED: Yes tenderness Neuro oriented x3 and no sensory deficits noted Sensorium / Orientation: alert Psych mental status grossly normal Skin no rashes or lesions noted MDM MDM MDM Narrative Medical decision making narrative: Patient was given fentanyl for pain. She was given DuoNeb treatment and 2 albuterol's. Chest x-ray per my interpretation shows no focal infiltrate. Right foot x-ray and right ankle x-rays reveal no acute fracture. Blood work is unremarkable. Lab Data Labs: Laboratory Results - last 24 hr 10/20/20 10/20/20 10/20/20 13:32 13:32 13:32 WBC 9.3 RBC 4.49 Hgb 13.3 Hct 40.7 MCV 90.6 MCH 29.6 MCHC 32.7 RDW Std Deviation 45.1 H RDW Coeff of Jordin 13.4 Plt Count 349 MPV 9.0 Immature Gran % (Auto) 0.400 Neut % (Auto) 72.9 H Lymph % (Auto) 17.3 L [place] % (Auto) 8.2 Eos % (Auto) 0.9 Baso % (Auto) 0.3 Absolute Neuts (auto) 6.8 Absolute Lymphs (auto) 1.61 Nucleated RBC % 0 PT Cancelled INR Cancelled APTT Cancelled Sodium Cancelled Potassium Cancelled Chloride Cancelled Carbon Dioxide Cancelled Anion Gap Cancelled BUN Cancelled Creatinine Cancelled Estim Creat Clear Calc Cancelled Est GFR (MDRD) Af Amer Cancelled Est GFR (MDRD) Non-Af Cancelled BUN/Creatinine Ratio Cancelled Glucose Cancelled Calcium Cancelled 10/20/20 10/20/20 14:27 14:27 WBC RBC Hgb Hct MCV MCH MCHC RDW Std Deviation RDW Coeff of Jordin Plt Count MPV Immature Gran % (Auto) Neut % (Auto) Lymph % (Auto) [place] % (Auto) Eos % (Auto) Baso % (Auto) Absolute Neuts (auto) Absolute Lymphs (auto) Nucleated RBC % PT 13.5 INR 1.1 APTT 29.9 Sodium 136 Potassium 3.4 L Chloride 98 Carbon Dioxide 30.0 Anion Gap 8 BUN 10 Creatinine 0.56 Estim Creat Clear Calc 46.43 Est GFR (MDRD) Af Amer 138 Est GFR (MDRD) Non-Af 114 BUN/Creatinine Ratio 18.0 Glucose 135 H Calcium 9.0 Radiography Diagnostic Testing: Radiology Impression Abdomen/Pelvis CT 10/20/20 13:37 IMPRESSION: Scattered sigmoid diverticula. Status post cholecystectomy. No acute abnormality is seen. Electronically Signed: Isaias Munroe MD at 15:11 EDT , Service support , Chest X-Ray 10/20/20 14:00 IMPRESSION: Hyperinflation. The lungs are clear. Electronically Signed: Isaias Munroe MD at 14:16 EDT , Service support , Foot X-Ray 10/20/20 14:00 IMPRESSION: Degenerative changes of the tarsal articulations. Hallux valgus deformity. Status post ORIF of the distal fibula. Electronically Signed: Isaias Munroe MD at 14:18 EDT , Service support , EKG Initial EKG: Interpretation: Sinus Rhythm (Sinus at 92. Nonspecific lateral T wave flattening. No acute ST change.) Treatment and Re-Evaluation Comments:: Test results discussed with the patient. She advised that she was not comfortable going home. I told her we would need to get her up to test walker to see if she was physically able to. She tells me that she does not want to go to a snf and is currently in assisted living. Nursing staff states patient got up and walked from the bed to the sink only. She stated she could not go any further. She did appear quite dyspneic but patient states that is her baseline secondary to her COPD. I will speak with the hospitalist regarding admission for physical therapy evaluation. Patient may require rehab or TCU for strengthening. I did advise her that it may be recommended that she go to a snf for rehab as well. Discharge Plan Triage Chief Complaint: Abd Pain ED Provider: Lola Fuentes Dx/Rx/DC Orders Clinical Impression: Right foot sprain, Abdominal wall contusion Prescriptions: No Action Myrbetriq 25 mg tablet extended release 24 hr 25 mg PO BID RF: 0 omeprazole 20 mg capsule,delayed release(DR/EC) 20 mg PO DAILY RF: 0 multivitamin [Tab-A-Korey] Tablet 1 tab PO DAILY RF: 0 sennosides-docusate sodium [Senexon-S] 8.6-50 mg tablet 1 tab-cap PO QHS RF: 0 calcium carbonate [[place]yster [place] Calcium] 500 mg calcium (1,250 mg) tablet 500 mg PO DAILY RF: 0 fluticasone furoate-vilanterol 100-25 mcg/dose blister with device 2 puff INHALATION DAILY RF: 0 albuterol sulfate [Ventolin HFA] 90 mcg/actuation HFA aerosol inhaler 1 inh INHALATION ONCE RF: 0 brimonidine 0.15 % drops 1 drp OPHTHALMIC BID RF: 0 benztropine 2 mg tablet 2 mg PO BID Qty: 60 RF: 3 oxcarbazepine 600 mg tablet 600 mg PO BID Qty: 60 RF: 3 phenobarbital 32.4 mg tablet 32.4 mg PO BID Qty: 60 RF: 3 cholecalciferol (vitamin D3) 1,250 mcg (50,000 unit) capsule 1,250 mcg PO QWEEK Qty: 4 RF: 3 risperidone 0.25 MG tablet 0.25 mg PO DAILY RF: 0 aspirin 81 MG tablet,delayed release (DR/EC) 81 mg PO DAILY RF: 0 potassium chloride 20 MEQ tablet 20 meq PO BID RF: 0 temazepam 15 MG capsule 2 tablet PO QHS RF: 0 levothyroxine 50 MCG tablet 50 mcg PO DAILY RF: 0 duloxetine 20 MG capsule,delayed release(DR/EC) 20 mg PO DAILY RF: 0 mirtazapine 7.5 mg tablet 7.5 mg PO QHS RF: 0 ropinirole 2 MG tablet 2 mg PO QHS RF: 0 methylnaltrexone 150 mg tablet 150 mg PO DAILY RF: 0 methadone 10 mg tablet 10 mg PO TID RF: 0 nicotine 21 mg/24 hr patch 24 hour 1 patch TOPICAL DAILY RF: 0 latanoprost (PF) 7.5 ML drops 1 drp EACHEYE QHS RF: 0 acetaminophen 325 MG tablet 650 mg PO Q6H PRN PRN (Reason: Pain Score 1-10/Temp > 100.7 F) RF: 0 ondansetron 4 MG tablet 4 mg PO Q8H PRN PRN (Reason: Nausea) Qty: 10 RF: 0 Primary Care Provider: Patel Veliz Chi: Patel Veliz Chi, MD [Primary Care Provider] - Disposition Disposition: Acute Care Hospital [facility]
--- NOTE | 2020-10-20 17:52 | PCM.HP.STD ---
Documented by User: MAURICIO Zamora 10/20/20 18:27 HPI - General General Date of Admission: 10/20/20 HPI Narrative XANDER RAMIREZ, is a 70 F who presents today following a fall at assisted living. Patient states that she fell yesterday due to her knee giving out but has had continued right leg/foot pain and lower extremity weakness. Patient was ambulated in the ER and was only able to ambulate approximately 10 feet with her walker before becoming weak and fatigued. Patient also complains of anterior wall abdominal pain and reports that when she fell she fell on her abdomen. Patient denies fever, chills, chest pain, increasing short of breath, diarrhea, constipation. PFSH Medical History Anxiety COPD (chronic obstructive pulmonary disease) Degenerative disc disease, lumbar Depression Gastritis Hypertension Insomnia Obstructive sleep apnea On home oxygen therapy Pain, chronic Physical debility Restless leg syndrome Seizure disorder Seizures Sleep apnea Smoker Smokes with greater than 40 pack year history Home Medications aspirin 81 mg PO DAILY 01/07/19 [History Last Taken 10/20/20] duloxetine 20 mg PO DAILY 01/07/19 [History Last Taken 10/20/20] levothyroxine 50 mcg PO DAILY 01/07/19 [History Last Taken 10/20/20] potassium chloride 20 meq PO BID 01/07/19 [History Last Taken 10/20/20] risperidone 0.25 mg PO DAILY 01/07/19 [History Last Taken 10/19/20] mirtazapine 7.5 mg tablet 7.5 mg PO QHS tablet 02/21/19 [History Last Taken 10/19/20] latanoprost (PF) 1 drp EACHEYE QHS 08/08/19 [History Last Taken 10/19/20] methadone 10 mg PO TID 08/08/19 [History Last Taken 10/20/20] nicotine 1 patch TOPICAL DAILY 08/08/19 [History Last Taken 10/20/20] ropinirole 2 mg PO QHS 08/08/19 [History Last Taken 10/19/20] acetaminophen 650 mg PO Q6H PRN PRN tablet 08/11/19 [Rx Last Taken Unknown] albuterol sulfate 90 mcg/actuation aerosol inhaler 1 inh INHALATION ONCE 05/13/20 [History Last Taken 3 Days Ago ~10/17/20] calcium carbonate 500 mg calcium (1,250 mg) tablet 500 mg PO DAILY 05/13/20 [History Last Taken 10/20/20] fluticasone furoate 100 mcg-vilanterol 25 mcg/dose inhalation powder 2 puff INHALATION DAILY 05/13/20 [History Last Taken 10/20/20] mirabegron 25 mg tablet,extended release 24 hr 25 mg PO BID tab 05/13/20 [History Last Taken 10/20/20] omeprazole 20 mg capsule,delayed release 20 mg PO DAILY cap 05/13/20 [History Last Taken 10/20/20] sennosides 8.6 mg-docusate sodium 50 mg tablet 2 tab PO BID 05/13/20 [History Last Taken 10/20/20] brimonidine 0.15 % eye drops 1 drp OPHTHALMIC BID 07/09/20 [History Last Taken 10/20/20] benztropine 2 mg tablet 2 mg PO BID #60 tab 10/13/20 [Rx Last Taken 10/20/20] oxcarbazepine 600 mg tablet 600 mg PO BID #60 tab 10/13/20 [Rx Last Taken 10/20/20] phenobarbital 32.4 mg tablet 32.4 mg PO BID #60 tab 10/13/20 [Rx Last Taken 10/20/20] cholecalciferol (vitamin D3) 1,250 mcg PO WE 10/20/20 [History Last Taken 10/15/20] multivitamin 1 tab PO DAILY 10/20/20 [History Last Taken 10/20/20] temazepam 30 mg PO QHS PRN 10/20/20 [History Last Taken 10/19/20] Allergy/AdvReac Type Severity Reaction Status Date / Time codeine Allergy Mild HIVES Verified 10/20/20 12:50 Penicillins Allergy Anaphylaxis Verified 10/20/20 12:50 Family History Mother Diabetes Heart disease Hypertension CAD (coronary artery disease) CVA (cerebral vascular accident) Thyroid disorder Father Colon cancer Surgical History History of bilateral carpal tunnel release History of bilateral cataract extraction History of blepharoplasty History of cystoscopy History of esophagogastroduodenoscopy (EGD) (~03/07/19) History of right hip replacement History of right salpingo-oophorectomy S/P appendectomy S/P laparoscopic cholecystectomy Status post ORIF of fracture of ankle Social History (Updated 10/20/20 @ 17:56 by Chapis Silva NP-C) Smoking Status: Current every day smoker tobacco type: cigarettes Tobacco: How many years used: 50 alcohol intake: never substance use type: does not use ROS Constitutional Constitutional: Reports weakness; Denies anorexia, chills or fatigue Eyes Eyes: Denies blurry vision ENT HEENT: Denies abnormal hearing or dysphagia Cardiovascular Cardiovascular: Denies chest pain or edema Respiratory/Chest Respiratory/Chest: Denies cough or hemoptysis Gastrointestinal Gastrointestinal: Reports abdominal pain Genitourinary Genitourinary: Denies dysuria or hematuria Musculoskeletal Musculoskeletal: Reports joint pain; Denies back pain or extremity pain Integumentary Integumentary: Denies dry skin or jaundice Neurologic Neurologic: Reports weakness; Denies abnormal gait Psychiatric Psychiatric: Denies anxiety or depression Endocrine Endocrinology: Denies change in body appearance Hematologic/Lymphatic Hematologic/Lymphatic: Denies easy bleeding or easy bruising Vital Signs Vital Signs Vital Signs: 10/20/20 12:46 10/20/20 13:50 10/20/20 15:28 Temperature 98.9 F Temperature Source Oral Pulse Rate 90 92 88 Respiratory Rate 22 H 26 H 14 Blood Pressure 190/148 H 114/64 Blood Pressure Mean 162 80 Pulse Ox 97 97 100 Oxygen Delivery Method Nasal Cannula Nasal Cannula Nasal Cannula Oxygen Flow Rate (L/min) 3 3 3 10/20/20 17:03 Temperature Temperature Source Pulse Rate 103 H Respiratory Rate 19 H Blood Pressure Blood Pressure Mean Pulse Ox 98 Oxygen Delivery Method Nasal Cannula Oxygen Flow Rate (L/min) 3 Physical Exam Const alert and oriented x3 General Appearance: cooperative HEENT normocephalic and head/scalp atraumatic Eyes PERRL and EOMs intact bilaterally Neck supple and no JVD Lymph Lymphatic: no lymphadenopathy noted Resp normal respiratory effort Auscultation: diminished lung sounds diffuse Cardio regular rate, regular rhythm, S1 normal heart sound and S2 normal heart sound GI normal to inspection, nondistended, normoactive bowel sounds and soft to palpation Palpation: tender Extremity normal capillary refill and no clubbing, cyanosis or edema General Extremity: no tenderness to palpation of joints or extremities Skin General Skin Exam: no breakdown and turgor normal Lesions: no lesions Rashes: no rashes Neuro CN's II-XII intact bilaterally Psych affect normal Appearance: appropriate Lab / Micro Data Result Diagrams: 10/20/20 13:32 10/20/20 14:27 Labs: Laboratory Results - last 24 hr 10/20/20 10/20/20 10/20/20 13:32 13:32 13:32 WBC 9.3 RBC 4.49 Hgb 13.3 Hct 40.7 MCV 90.6 MCH 29.6 MCHC 32.7 RDW Std Deviation 45.1 H RDW Coeff of Jordin 13.4 Plt Count 349 MPV 9.0 Immature Gran % (Auto) 0.400 Neut % (Auto) 72.9 H Lymph % (Auto) 17.3 L [place] % (Auto) 8.2 Eos % (Auto) 0.9 Baso % (Auto) 0.3 Absolute Neuts (auto) 6.8 Absolute Lymphs (auto) 1.61 Nucleated RBC % 0 PT Cancelled INR Cancelled APTT Cancelled Sodium Cancelled Potassium Cancelled Chloride Cancelled Carbon Dioxide Cancelled Anion Gap Cancelled BUN Cancelled Creatinine Cancelled Estim Creat Clear Calc Cancelled Est GFR (MDRD) Af Amer Cancelled Est GFR (MDRD) Non-Af Cancelled BUN/Creatinine Ratio Cancelled Glucose Cancelled Calcium Cancelled 10/20/20 10/20/20 14:27 14:27 WBC RBC Hgb Hct MCV MCH MCHC RDW Std Deviation RDW Coeff of Jordin Plt Count MPV Immature Gran % (Auto) Neut % (Auto) Lymph % (Auto) [place] % (Auto) Eos % (Auto) Baso % (Auto) Absolute Neuts (auto) Absolute Lymphs (auto) Nucleated RBC % PT 13.5 INR 1.1 APTT 29.9 Sodium 136 Potassium 3.4 L Chloride 98 Carbon Dioxide 30.0 Anion Gap 8 BUN 10 Creatinine 0.56 Estim Creat Clear Calc 46.43 Est GFR (MDRD) Af Amer 138 Est GFR (MDRD) Non-Af 114 BUN/Creatinine Ratio 18.0 Glucose 135 H Calcium 9.0 Radiology Impression Abdomen/Pelvis CT 10/20/20 13:37 IMPRESSION: Scattered sigmoid diverticula. Status post cholecystectomy. No acute abnormality is seen. Electronically Signed: Isaias Munroe MD at 15:11 EDT , Service support , Chest X-Ray 10/20/20 14:00 IMPRESSION: Hyperinflation. The lungs are clear. Electronically Signed: Isaias Munroe MD at 14:16 EDT , Service support , Foot X-Ray 10/20/20 14:00 IMPRESSION: Degenerative changes of the tarsal articulations. Hallux valgus deformity. Status post ORIF of the distal fibula. Electronically Signed: Isaias Munroe MD at 14:18 EDT , Service support , Assessment & Plan Assessment/Plan (1) Physical debility: Status: Chronic Code(s): R53.81 - Other malaise (2) Right foot sprain: Status: Acute Code(s): S93.601A - Unspecified sprain of right foot, initial encounter (3) Abdominal wall contusion: Status: Acute Code(s): S30.1XXA - Contusion of abdominal wall, initial encounter (4) Hypokalemia: Status: Acute Code(s): E87.6 - Hypokalemia (5) Epilepsy: Status: Chronic Code(s): G40.909 - Epilepsy, unspecified, not intractable, without status epilepticus Qualifiers: Epilepsy type: other generalized Intractability: not intractable Status epilepticus: without status epilepticus Qualified Code(s): G40.409 - Other generalized epilepsy and epileptic syndromes, not intractable, without status epilepticus (6) COPD (chronic obstructive pulmonary disease): Status: Chronic Code(s): J44.9 - Chronic obstructive pulmonary disease, unspecified (7) Obstructive sleep apnea: Status: Chronic Code(s): G47.33 - Obstructive sleep apnea (adult) (pediatric) (8) Hypothyroidism: Status: Chronic Code(s): E03.9 - Hypothyroidism, unspecified (9) Restless leg syndrome: Status: Chronic (10) Depression: Status: Chronic Code(s): F32.9 - Major depressive disorder, single episode, unspecified (11) Degenerative disc disease, lumbar: Status: Chronic Code(s): M51.36 - Other intervertebral disc degeneration, lumbar region (12) Stress bladder incontinence, female: Status: Chronic Code(s): N39.3 - Stress incontinence (female) (male) (13) Tobacco use: Status: Chronic Code(s): Z72.0 - Tobacco use (14) Smokes with greater than 40 pack year history: Status: Chronic Code(s): F17.210 - Nicotine dependence, cigarettes, uncomplicated Plan: 1. Physical debility -Admit to [facility] for therapy evaluation and ECF placement -Case management consulted for correction placement for continued therapy -PT and OT to eval and treat -Vital signs per protocol 2. Right ankle sprain -Treat per PT recommendations 3. Abdominal wall contusion -CT negative for acute findings 4. Hypokalemia -Patient currently on potassium chloride 20 mEq p.o. twice daily 5. Epilepsy -Continue current home medication regimen 6. COPD -Encourage incentive spirometry -O2 per protocol, patient on 3 L nasal cannula at home -DuoNeb and as needed albuterol treatments ordered 7. Obstructive sleep apnea -CPAP ordered per home settings 8. Restless leg syndrome -Continue current home medication regimen 9. Hypothyroidism -Continue levothyroxine 10. Depression -Continue home medication regimen 11. Degenerative disc disease -Continue home medication regimen 12. Stress bladder incontinence, female -Continue home medication regimen 13. Tobacco use, smokes with greater than [id number] history -NicoDerm transdermal patch ordered -Tobacco cessation ordered Documented by User: Dr. Judson Hyman MD 10/20/20 19:19 HPI - General General Date of Admission: 10/20/20 PFSH Medical History Anxiety COPD (chronic obstructive pulmonary disease) Degenerative disc disease, lumbar Depression Gastritis Hypertension Insomnia Obstructive sleep apnea On home oxygen therapy Pain, chronic Physical debility Restless leg syndrome Seizure disorder Seizures Sleep apnea Smoker Smokes with greater than 40 pack year history Home Medications aspirin 81 mg PO DAILY 01/07/19 [History Last Taken 10/20/20] duloxetine 20 mg PO DAILY 01/07/19 [History Last Taken 10/20/20] levothyroxine 50 mcg PO DAILY 01/07/19 [History Last Taken 10/20/20] potassium chloride 20 meq PO BID 01/07/19 [History Last Taken 10/20/20] risperidone 0.25 mg PO DAILY 01/07/19 [History Last Taken 10/19/20] mirtazapine 7.5 mg tablet 7.5 mg PO QHS tablet 02/21/19 [History Last Taken 10/19/20] latanoprost (PF) 1 drp EACHEYE QHS 08/08/19 [History Last Taken 10/19/20] methadone 10 mg PO TID 08/08/19 [History Last Taken 10/20/20] nicotine 1 patch TOPICAL DAILY 08/08/19 [History Last Taken 10/20/20] ropinirole 2 mg PO QHS 08/08/19 [History Last Taken 10/19/20] acetaminophen 650 mg PO Q6H PRN PRN tablet 08/11/19 [Rx Last Taken Unknown] albuterol sulfate 90 mcg/actuation aerosol inhaler 1 inh INHALATION ONCE 05/13/20 [History Last Taken 3 Days Ago ~10/17/20] calcium carbonate 500 mg calcium (1,250 mg) tablet 500 mg PO DAILY 05/13/20 [History Last Taken 10/20/20] fluticasone furoate 100 mcg-vilanterol 25 mcg/dose inhalation powder 2 puff INHALATION DAILY 05/13/20 [History Last Taken 10/20/20] mirabegron 25 mg tablet,extended release 24 hr 25 mg PO BID tab 05/13/20 [History Last Taken 10/20/20] omeprazole 20 mg capsule,delayed release 20 mg PO DAILY cap 05/13/20 [History Last Taken 10/20/20] sennosides 8.6 mg-docusate sodium 50 mg tablet 2 tab PO BID 05/13/20 [History Last Taken 10/20/20] brimonidine 0.15 % eye drops 1 drp OPHTHALMIC BID 07/09/20 [History Last Taken 10/20/20] benztropine 2 mg tablet 2 mg PO BID #60 tab 10/13/20 [Rx Last Taken 10/20/20] oxcarbazepine 600 mg tablet 600 mg PO BID #60 tab 10/13/20 [Rx Last Taken 10/20/20] phenobarbital 32.4 mg tablet 32.4 mg PO BID #60 tab 10/13/20 [Rx Last Taken 10/20/20] cholecalciferol (vitamin D3) 1,250 mcg PO WE 10/20/20 [History Last Taken 10/15/20] multivitamin 1 tab PO DAILY 10/20/20 [History Last Taken 10/20/20] temazepam 30 mg PO QHS PRN 10/20/20 [History Last Taken 10/19/20] Allergy/AdvReac Type Severity Reaction Status Date / Time codeine Allergy Mild HIVES Verified 10/20/20 12:50 Penicillins Allergy Anaphylaxis Verified 10/20/20 12:50 Family History Mother Diabetes Heart disease Hypertension CAD (coronary artery disease) CVA (cerebral vascular accident) Thyroid disorder Father Colon cancer Surgical History History of bilateral carpal tunnel release History of bilateral cataract extraction History of blepharoplasty History of cystoscopy History of esophagogastroduodenoscopy (EGD) (~03/07/19) History of right hip replacement History of right salpingo-oophorectomy S/P appendectomy S/P laparoscopic cholecystectomy Status post ORIF of fracture of ankle Social History (Updated 10/20/20 @ 17:56 by Chapis Silva NP-C) Smoking Status: Current every day smoker tobacco type: cigarettes Tobacco: How many years used: 50 alcohol intake: never substance use type: does not use Lab / Micro Data Result Diagrams: 10/20/20 13:32 10/20/20 14:27 Assessment & Plan Assessment/Plan (1) Fall: Status: Acute Code(s): W19.XXXA - Unspecified fall, initial encounter (2) Abdominal pain: Status: Acute Code(s): R10.9 - Unspecified abdominal pain (3) Right foot pain: Status: Acute Code(s): M79.671 - Pain in right foot (4) Debility: Status: Acute Code(s): R53.81 - Other malaise Plan: Hospitalist note: I am seeing this patient in conjunction with Chapis Silva . I independently seen and examined the patient. History and physical, laboratory data and imaging studies reviewed and I concur with the above admission and treatment plan. Patient presented to the emergency room because of fall. She stated that her legs gave out and she fell and she started having right foot pain. Also, she complained of abdominal pain after the mechanical fall, nonspecific, vague, not radiating and no associated symptoms. She denied fever or chills. She denied chest pain or shortness of breath. She does have COPD and chronic respiratory failure and she has been on oxygen at 3 L at home. In the emergency department, her vital signs were stable. She was on 3 L of oxygen which is her baseline. Her routine blood work was unremarkable except for potassium of 3.4. CT scan abdomen and pelvis without contrast showed no acute abnormality. Chest x-ray showed no acute findings. X-ray of the right foot and right ankle showed mild soft tissue swelling, no fractures. Patient is being admitted for fall, right foot/ankle pain, debility and difficulty ambulating and probably she will need placement to shelter facility. - Physical Exam General: Alert, Oriented x3, Cooperative, No apparent distress. HEENT: Atraumatic, PERRLA, EOMI. Neck: Supple, No JVD, Negative Carotid Bruits, Trachea Midline, Thyroid Normal. Lungs: Diminished breath sounds bilateral, otherwise clear, No rhonchi, No wheeze, No rales. Cardiovascular: Regular rate, Regular Rhythm, Normal S1, Normal S2, PMI Normal. Abdomen: Bowel Sounds Present, Soft, Non Tender, Non-Distended, No Hepato-splenomegaly. Extremities: No clubbing, No cyanosis, No edema Skin: No rashes, No breakdown Neurological: Cranial nerves are intact, neuro grossly intact Vital Signs are stable. Assessment and plan: #1 physical debility/fall/functional decline: Imaging study showed no acute fractures dislocations. CT scan abdomen and pelvis was unremarkable. Routine blood was unremarkable. Patient lives at the assisted living. Plan: Admit to [facility] for observation, Tylenol as needed, Zofran as needed, OxyIR as needed for pain, PT OT evaluation and treatment, patient probably need placement to shelter facility. #2 right ankle/right foot pain: No fracture on x-ray. Plan for pain control, PT OT. #3 abdominal pain: Started after the mechanical fall, CT scan abdomen showed no acute findings. #4 other chronic medical problems: Stable, continue current medication as above. This note was generated with [employer] dictation software. It may contain incorrect words, spelling, and punctuation that were not noted in checking the note before signing. Visit Charges OBSV E&M: 90783 Initial observation care L2
--- NOTE | 2020-10-20 18:22 | NURSING ---
320 [address]FA[address] FALL, FOOT CONTUSION
[2020-10-20] MEDS: oxyCODONE 5 MG Tablet PO (19:34)
[2020-10-20] MEDS: Acetaminophen 325 MG Tablet 650 MG PO (19:35)
[2020-10-20] MEDS: BRIMONIDINE 0.15% 5 ML Bottle 1 DRP OPHTHALMIC (20:59)
[2020-10-20] MEDS: Mirabegron 25 MG TAB.ER.24H PO (21:00)
[2020-10-20] MEDS: Benztropine 2 MG Tablet PO (21:00)
[2020-10-20] MEDS: Methadone 10 MG Tablet PO (21:00)
[2020-10-20] MEDS: Pramipexole Di-HCl 1 MG Tablet PO (21:00)
[2020-10-20] MEDS: Mirtazapine 15 MG Tablet 7.5 MG PO (21:01)
[2020-10-20] MEDS: Latanoprost 0.005% 1 Bottle 1 DRP OPHTHALMIC (21:01)
[2020-10-20] MEDS: OXcarbazepine 600 MG Tablet PO (21:03)
[2020-10-20] MEDS: Temazepam 15 MG Capsule 30 MG PO (21:06)
[2020-10-20] MEDS: Senna/Docusate Sodium 1 Tablet 2 TABLET PO (21:07)
[2020-10-20] MEDS: Phenobarbital 32.4 MG Tablet PO (21:07)
[2020-10-21] VITALS (7 sets, daily range): BP systolic 109–130; BP diastolic 55–86; PULSE 68–104; RESP 16–24; TEMP 36.6–37.6; O2SAT 95–99
[2020-10-21] MEDS: oxyCODONE 5 MG Tablet PO ×2 (02:48→12:10)
[2020-10-21] MEDS: Acetaminophen 325 MG Tablet 650 MG PO (02:48)
[2020-10-21] MEDS: Levothyroxine 50 MCG Tablet PO (06:33)
[2020-10-21] MEDS: Methadone 10 MG Tablet PO ×3 (06:33→21:34)
[2020-10-21] MEDS: Ipratropium/Albuterol Sulfate 3 ML AMPUL.NEB INHALATION ×2 (06:57→19:54)
--- NOTE | 2020-10-21 08:44 | CASEMGMT ---
Social Work Note GRAHAM reviewed chart. Pt has CM Beata Chen through [facility]. SW placed a call to Beata at [facility] and updated her on pt's admission to [facility]. Beata states pt lives in regular apartments, not independent living or assisted living. Beata states pt gets Meals Delivered through [facility]. Pt also has Aides 4 hours a day M- and every other Tuesday through [facility]. 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
[2020-10-21] MEDS: BRIMONIDINE 0.15% 5 ML Bottle 1 DRP OPHTHALMIC ×2 (09:20→21:33)
[2020-10-21] MEDS: DULoxetine Hcl 20 MG Capsule PO (09:21)
[2020-10-21] MEDS: Mirabegron 25 MG TAB.ER.24H PO ×2 (09:21→21:34)
[2020-10-21] MEDS: Potassium Chloride Oral Tablet 20 MEQ PO ×2 (09:21→16:50)
[2020-10-21] MEDS: Enoxaparin 40 MG/0.4 ML Syringe SC (09:22)
[2020-10-21] MEDS: Pantoprazole Sodium 20 MG Tablet PO ×2 (09:22→16:50)
[2020-10-21] MEDS: Benztropine 2 MG Tablet PO ×2 (09:22→21:34)
[2020-10-21] MEDS: Aspirin E.C. 81 MG Tablet PO (09:22)
[2020-10-21] MEDS: OXcarbazepine 600 MG Tablet PO ×2 (09:23→21:35)
[2020-10-21] MEDS: RisperiDONE 0.25 MG Tablet PO (09:23)
[2020-10-21] MEDS: Phenobarbital 32.4 MG Tablet PO ×2 (09:25→21:34)
--- NOTE | 2020-10-21 12:12 | PN.HOSP_ITS ---
Documented by User: Rolando MARTINEZ 10/21/20 12:41 Subjective Subjective: Patient is a 70-year-old female who is complete resting in bed, alert and oriented x3. Patient appears acutely short of breath, however she reports that she always gets short of breath after she eats. Patient also demonstrates dystonic movements of her head and neck. Denies chest pain, shortness of breath, palpitations, fever, chills, N/V/D. Objective Data Objective Data Vital Signs: Vital Signs Temp Pulse Resp BP Pulse Ox 97.8 F 68 16 110/67 99 10/21/20 07:50 10/21/20 07:50 10/21/20 07:50 10/21/20 07:50 10/21/20 07:50 Oxygen Flow Rate (L/min) 3 Oxygen Delivery Method Nasal Cannula Weight: 187 lb 9.814 oz Body Mass Index (BMI) 31.2 Intake & Output: Intake and Output for Last 24 Hours 10/19/20 10/20/20 10/21/20 23:59 23:59 23:59 Intake Total 150 / 150 Output Total 150 / 150 Balance 0 / 0 Lab / Micro Data Result Diagrams: 10/20/20 13:32 10/20/20 14:27 Labs: Laboratory Results - last 24 hr 10/20/20 10/20/20 10/20/20 13:32 13:32 13:32 WBC 9.3 RBC 4.49 Hgb 13.3 Hct 40.7 MCV 90.6 MCH 29.6 MCHC 32.7 RDW Std Deviation 45.1 H RDW Coeff of Jordin 13.4 Plt Count 349 MPV 9.0 Immature Gran % (Auto) 0.400 Neut % (Auto) 72.9 H Lymph % (Auto) 17.3 L [place] % (Auto) 8.2 Eos % (Auto) 0.9 Baso % (Auto) 0.3 Absolute Neuts (auto) 6.8 Absolute Lymphs (auto) 1.61 Nucleated RBC % 0 PT Cancelled INR Cancelled APTT Cancelled Sodium Cancelled Potassium Cancelled Chloride Cancelled Carbon Dioxide Cancelled Anion Gap Cancelled BUN Cancelled Creatinine Cancelled Estim Creat Clear Calc Cancelled Est GFR (MDRD) Af Amer Cancelled Est GFR (MDRD) Non-Af Cancelled BUN/Creatinine Ratio Cancelled Glucose Cancelled Calcium Cancelled 10/20/20 10/20/20 14:27 14:27 WBC RBC Hgb Hct MCV MCH MCHC RDW Std Deviation RDW Coeff of Jordin Plt Count MPV Immature Gran % (Auto) Neut % (Auto) Lymph % (Auto) [place] % (Auto) Eos % (Auto) Baso % (Auto) Absolute Neuts (auto) Absolute Lymphs (auto) Nucleated RBC % PT 13.5 INR 1.1 APTT 29.9 Sodium 136 Potassium 3.4 L Chloride 98 Carbon Dioxide 30.0 Anion Gap 8 BUN 10 Creatinine 0.56 Estim Creat Clear Calc 46.43 Est GFR (MDRD) Af Amer 138 Est GFR (MDRD) Non-Af 114 BUN/Creatinine Ratio 18.0 Glucose 135 H Calcium 9.0 Radiography Diagnostic Testing: Radiology Impression Abdomen/Pelvis CT 10/20/20 13:37 IMPRESSION: Scattered sigmoid diverticula. Status post cholecystectomy. No acute abnormality is seen. Electronically Signed: Isaias Munroe MD at 15:11 EDT , Service support , Chest X-Ray 10/20/20 14:00 IMPRESSION: Hyperinflation. The lungs are clear. Electronically Signed: Isaias Munroe MD at 14:16 EDT , Service support , Foot X-Ray 10/20/20 14:00 IMPRESSION: Degenerative changes of the tarsal articulations. Hallux valgus deformity. Status post ORIF of the distal fibula. Electronically Signed: Isaias Munroe MD at 14:18 EDT , Service support , Ankle X-Ray 10/20/20 17:15 IMPRESSION: Mild soft tissue swelling of the ankle. No fracture. Degenerative changes of the midfoot and hindfoot. Status post ORIF of the distal fibula. Electronically Signed: Dorian Castle MD at 17:52 EDT Tel , Service support , Physical Exam Narrative See subjective. Const alert, oriented x3 and no apparent distress HEENT head/scalp atraumatic Head and Scalp: normocephalic Eyes EOMs intact bilaterally Neck no lymphadenopathy, supple and no JVD Resp normal respiratory effort, no use of accessory muscles and clear to auscultation bilaterally Cardio regular rate, regular rhythm, no murmurs and no JVD GI normal to inspection, nondistended, normoactive bowel sounds, soft to palpation and non-tender Extremity full ROM Skin no rashes or lesions noted and no wounds Neuro CN's II-XII intact bilaterally Psych affect normal Assessment & Plan Assessment/Plan (1) Fall: Status: Acute Code(s): W19.XXXA - Unspecified fall, initial encounter (2) Abdominal pain: Status: Acute Code(s): R10.9 - Unspecified abdominal pain (3) Right foot pain: Status: Acute Code(s): M79.671 - Pain in right foot (4) Debility: Status: Acute Code(s): R53.81 - Other malaise Plan: Patient is a 70-year-old female who was admitted on 10/20/2020 status post mechanical fall. No evidence of fracture or acute findings on imaging. On exam today, patient demonstrates dystonic movements of the head and neck. Most likely related to her home dose of Risperdal. Today patient reports no progression of symptoms from admission, does endorse being short of breath however reports that this is normal for her after she eats. Patient is still open to the idea of temporary placement at SNF for rehabilitative care, case management to initiate placement pending PT/OT eval. 1) Physical debility/fall/fucntional decline X-ray of the chest right foot and ankle demonstrated only soft tissue swelling and no evidence of fracture. CT of abdomen and pelvis unremarkable. Plan; PT/OT evaluation and treatment, case management evaluation for probable placement to SNF. 2) right ankle/foot pain X-ray of the right foot and ankle demonstrate only soft tissue swelling and no evidence of fracture. Plan; Tylenol and OxyIR as needed. 3) abdominal pain Patient reports abdominal pain began after her fall. Physical exam demonstrated no tenderness to palpation throughout the abdomen. CT of the abdomen and pelvis demonstrated no acute findings. Plan; as above for pain. DVT prophylaxis -Lovenox OH Patient seen by Rolando Palencia PA-C, under the supervision of Dr. Greene. Documented by User: Dr. Silva Greene MD 10/21/20 16:05 Objective Data Lab / Micro Data Result Diagrams: 10/20/20 13:32 10/20/20 14:27 Visit Charges OBSV E&M: 10809 Subsequent observation care L2 Addendum Patient seen by Rolando Palencia PA-C under my supervision Patient seen and examined. She was admitted with complaint of mechanical fall. Patient fell after she sees any gave out. She also complained of anterior abdominal pain on account of the mechanical fall. She has been managed for debility due to mechanical fall. Patient has no complaints this morning. Review of symptoms otherwise negative. Patient was noted to be wheezing but she said this is chronic for her due to her chronic COPD for which she uses 2 L of oxygen at home. Patient is open to going to detention facility for rehab if needed. She has remained hemodynamically stable. O/E: Const alert, oriented x3 and no apparent distress HEENT head/scalp atraumatic Head and Scalp: normocephalic Eyes EOMs intact bilaterally Neck no lymphadenopathy, supple and no JVD Resp has bilateral wheezing in all lung [place].. on 2L of oxygen which is chronic Cardio regular rate, regular rhythm, no murmurs and no JVD GI normal to inspection, nondistended, normoactive bowel sounds, soft to palpation and non-tender Extremity full ROM Skin no rashes or lesions noted and no wounds Neuro CN's II-XII intact bilaterally Psych affect normal Plan is for PT OT to evaluate her to determine if she can go back to assisted living safely or she would need to go to a rehab facility. Fall precautions. Patient also request for a rollator. Case management informed. Continue breathing treatments with bronchodilators. Of note, CT of the abdomen and pelvis showed no acute findings of his complaint of the abdominal pain and this likely musculoskeletal after fall. X-ray of the right foot and ankle which also showed only soft tissue swelling and no evidence of fracture. On Tylenol and oxycodone as needed for pain. PT OT on board. Rest as per Rolando Palencia PA-C's note, which I have reviewed and endorsed. OBSV E&M: 46771 Subsequent observation care L2
--- NOTE | 2020-10-21 12:21 | CASEMGMT ---
Social Work Assessment Referral Date: 10/21/2020 Date of Assessment: 10/21/2020 Reason for consult: Home vs SNF Informant: SW Personal Status: SW met with pt to complete initial assessment. SW introduced self and role at [facility]. Pt is alert and orientated x3. Living Arrangements: Pt states she lives alone, with a cat, in a 3 level apartment. Pt states she has no steps to enter the apartment has she has an elevator. Pt states she primarily stays on one floor of her apartment. Pt states she primarily stays in her apartment as there are 46 apartments total. DME: Wheelchair, rollator, Oxygen. Pt states she uses her rollator when walking. Pt states she is on 3 Liters of Oxygen through [employer]. Pt states she usually just wears Oxygen at night but thinks she needs it continuously. PCP: Dr. Veliz [facility]: [facility] Transportation: [facility] in the Home: Pt confirms she has Beata Chen as a CM through [facility]. Pt confirms she gets Home Delivered Meals and Aide services through [facility] HHC: Pt states a RN comes out 1x a year through [facility]. SNF: Pt states she has been to [facility], [facility], and [facility] in the past. Substance Use: Pt states she smokes cigarettes for the last 50 years, states she is trying to quit. Mental Health Hx: Pt states history of depression. Pt states I live alone. Pt states she is currently on medication that is prescribed through [facility]. Pt states she see's a Psychiatrist/Counselor at [facility], unable to recall name of Psychiatrist. Pt states she talks to her Psychiatrist on the phone. Pt states she has no Case Management through [facility]. SW spoke with pt about depression. SW asked pt about history of suicidal thoughts/plans/ideations. Pt states she tried to commit suicide about a year ago. Pt states it was what would've been her 's birthday and their wedding anniversary. Pt states her 20 years ago. SW offered support to pt. SW asked pt how she attempted suicide. Pt states I slit my wrists. Pt states she was brought to the Hospital and then had to be placed in a psychiatric hospital. Pt states it was somewhere in [place]. SW asked pt how she is managing this year with the anniversaries. Pt states she feels her depression is currently well managed. Pt states she likes to do things to take her mind off of things. Pt denied any current suicidal thoughts/plans/ideations. Coping Skills: Pt state she likes to read and do word searches. 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 Financial: Pt state she receives SSI for years due to her back. Support: Pt states her son Yaakov and REYNA Davies are good support for her. Pt states her cat is also good support for her. Intervention: Pt with appropriate affect and eye contact during conversation. Pt is able to identify coping skills and identify a support system. Pt is currently active with [facility] where she is active with a psychiatrist and is currently taking medications for her depression. Pt denied any current suicidal thoughts/plans/ideations. SW provided pt with much support during conversation. Discharge: SW spoke with pt about discharge plans. Pt states she wishes to discharge home with [facility] and resumption of her services through [facility]. Plan: Pt wishes to discharge home with [facility]. ERIC CM updated. Cheyanne Cee CHOCOLATE REFINING ROLLER, STILL CLEANER TUBE
[2020-10-21] MEDS: Ondansetron 4 MG/2 ML Vial IV ×2 (13:30→21:26)
[2020-10-21] MEDS: 0.9% Saline Lock 10 ML Syringe IV ×2 (13:30→21:26)
--- NOTE | 2020-10-21 15:21 | CASEMGMT ---
Social Work Note SW spoke with PT/OT, pt assist of two, only did about two feet, recommendation is SNF. SW in to speak with pt. SW updated pt on recommendation for SNF. Pt states again she really wants to go home. SW asked pt if she would consider going to SNF short term and pt states I've been to them before, I don't really want to go back. Pt agreeable to taking SNF list. Patient was provided a list of SNF providers including quality and resource use data and consistent with the patient?s preferred geographic region, medical needs, and insurance network. At this time though, pt is refusing SNF, states she will be going home. Cheyanne Cee MIDDLEWARE ADMINISTRATOR, LICENSED ESTHETICIAN
--- NOTE | 2020-10-21 15:47 | CASEMGMT ---
ERIC BELLE in to discuss WILDE form with patient. ERIC BELLE explained WILDE form to patient, patient voices understanding. Patient signed WILDE form and place in chart. Patient provided with copy of signed WILDE form. Patient had no further questions or concerns at this time.
[2020-10-21] MEDS: Mag Hydrox/Al Hydrox/Simeth 30 ML UDC PO (20:09)
[2020-10-21] MEDS: Mirtazapine 15 MG Tablet 7.5 MG PO (21:34)
[2020-10-21] MEDS: Pramipexole Di-HCl 1 MG Tablet PO (21:34)
[2020-10-21] MEDS: Latanoprost 0.005% 1 Bottle 1 DRP OPHTHALMIC (21:35)
[2020-10-21] MEDS: Senna/Docusate Sodium 1 Tablet 2 TABLET PO (21:35)
[2020-10-22] VITALS (9 sets, daily range): BP systolic 100–147; BP diastolic 55–91; PULSE 71–99; RESP 16–20; TEMP 37.3–37.5; O2SAT 95–100
[2020-10-22] MEDS: Ipratropium/Albuterol Sulfate 3 ML AMPUL.NEB INHALATION ×4 (00:55→19:25)
[2020-10-22] MEDS: 0.9% Saline Lock 10 ML Syringe IV (01:28)
[2020-10-22] MEDS: proMETHazine 25 MG/ML Syringe 12.5 MG IM (01:28)
[2020-10-22] MEDS: Methadone 10 MG Tablet PO ×3 (05:46→21:07)
[2020-10-22] MEDS: Levothyroxine 50 MCG Tablet PO (05:46)
[2020-10-22 06:04] LABS: Absolute Lymphocyte Count 1.47 X10^3/uL (0.83-4.51); Absolute Neutrophil Count 8.1 X10^3/uL (2.0-7.7); Basophil# 0.01 X10^3/uL; Basophil% 0.1 % (0-1); Eosinophil# 0.01 X10^3/uL; Eosinophils% 0.1 % (0-5); Hematocrit 39.2 % (37-47); Hemoglobin 12.6 g/dL (12.0-15.0); Lymphocyte # 1.47 X10^3/ul (0.83-4.51); Lymphocyte % 14.6 % (19-41); Mean Corp Hgb Conc 32.1 g/dL (32-36); Mean Corpuscular Hgb 29.6 pg (27.0-32.0); Mean Corpuscular Volume 92.2 fL (81-99); Mean Platelet Vol. 8.5 fl (6.2-12.0); Monocyte# 0.49 X10^3/uL; Monocyte% 4.9 % (0-10); NRBC Flagged by Analyzer 0 % (0-5); Neutrophil # 8.05 X10^3/uL (2.7-7.7); Neutrophil % 79.9 % (47-70); Platelet Count 302 K/mm3 (150-450); RBC Distribution Width CV 13.3 % (11.6-14.6); RBC Distribution Width SD 44.9 fl (35.1-43.9); Red Blood Count 4.25 M/mm3 (4.2-5.4); White Blood Count 10.1 K/mm3 (4.4-11.0)
[2020-10-22 06:31] LABS: Anion Gap 3 (5-15); BUN 10 mg/dL (7-18); BUN/Creat Ratio 21.9 RATIO (10-20); Calcium,Total 8.8 mg/dL (8.5-10.1); Chloride 99 mmol/L (98-107); Creatinine, Serum 0.46 mg/dL (0.55-1.02); EST Glomerular Filtration Rate 143 mL/min (>60); Est Glom Filt Rate - Afr Amer 173 mL/min (>60); Estimated Creatinine Clearance 44.56 ml/min; Glucose 166 mg/dL (74-106); Potassium 3.6 mmol/L (3.5-5.1); Sodium Level 136 mmol/L (136-145)
[2020-10-22] MEDS: Ondansetron 4 MG/2 ML Vial IV (08:03)
[2020-10-22] MEDS: Morphine 2 MG/ML Syringe IV (08:25)
--- NOTE | 2020-10-22 09:20 | RAD_ITS ---
STUDY: X-RAY - ABDOMEN/PELVIS REASON FOR EXAM: Female, 70 years old. Persistent vomiting, inability to pass gas TECHNIQUE: AP supine and decubitus views of the abdomen and pelvis. COMPARISON: Comparison is made with prior study dated 09/30/2020. FINDINGS: Normal visualized lung bases. There is a moderate amount of colonic fecal material. There is no demonstrated free abdominal air. The visualized liver, spleen and kidneys are grossly normal in size and morphology. The patient is status post cholecystectomy. Normal soft tissue structures. There are diffuse degenerative changes of the visualized lumbar spine. The patient is status post right total hip replacement. RAD/Abd Inc Decub and/or Erect IMPRESSION: Moderate amount of fecal material is seen in the colon. Electronically Signed: Isaias Munroe MD at 9:34 EDT , Service support ,
--- NOTE | 2020-10-22 09:37 | NURSING ---
pt to x ray
[2020-10-22] MEDS: Enoxaparin 40 MG/0.4 ML Syringe SC (09:52)
[2020-10-22] MEDS: BRIMONIDINE 0.15% 5 ML Bottle 1 DRP OPHTHALMIC ×2 (09:52→21:07)
[2020-10-22] MEDS: 0.9% Normal Saline 1,000 ML 100 ML IV ×2 (09:54→19:57)
--- NOTE | 2020-10-22 10:14 | CASEMGMT ---
Social Work Note SW updated that pt is now agreeable to SNF. SW in to speak with pt. Pt confirms she is agreeable to SNF, states she looked at the SNF list last night and is agreeable to [facility]. SW explained referral process and that pt will need pre-cert. Pt asked that her son Yaakov, who is POA, be updated. SW informed pt that this worker will update Yaakov once a SNF has accepted pt. Pt states understanding. SW placed a call to Yana at [facility] and provided referral. SW faxed referral. If pt remains in observation statis, pt will need a PAS/RR to go to SNF and pt will trip the screen due to recent psych hospitalization. Plan: [facility] pending acceptance and pre-cert. Cheyanne Cee CYBER REVERSE ENGINEER, FRUIT CANNER
--- NOTE | 2020-10-22 11:43 | CON.PCM.SX_ITS ---
Assessment & Plan Assessment/Plan (1) Chronic constipation: Status: Chronic Code(s): K59.09 - Other constipation (2) Nausea & vomiting: Status: Acute Code(s): R11.2 - Nausea with vomiting, unspecified Qualifiers: Vomiting type: unspecified Vomiting Intractability: unspecified Qualified Code(s): R11.2 - Nausea with vomiting, unspecified Plan: The patient has been having nausea and vomiting since before her fall. The patient's white count is normal with a slight left shift. Patient is CT scan upon arrival of her abdomen and pelvis which was essentially normal. The patient has been having lower abdominal pain for 5 days and has not had a bowel movement in over 5 days. I would like to give the patient enemas to see if this helps relieve her constipation but I am unsure as to the etiology of her nausea and vomiting. X-ray today did not reveal any dilated small bowel only copious stool in the colon. At this time I do not believe there is a surgical indication. Will continue to follow. Jr Dunlap MD Pager: [facility] [address] [place] [address], [address] [place] [address] Office: HPI Consult Data Date of Consult: 10/22/20 HPI Narrative HPI Narrative: XANDER RAMIREZ, is a 70 F who is admitted to the hospital after a fall. The patient was admitted after a fall 3 days ago. The patient reports that she has been having nausea and vomiting abdominal pain for 5 days. She reports her last bowel movement was over 5 days ago. The patient reports she is having lower abdominal pain which does not radiate. She has been having nausea and vomiting since before her fall. The patient has never had any issues like this before. [facility] Medical History Anxiety COPD (chronic obstructive pulmonary disease) Degenerative disc disease, lumbar Depression Gastritis Hypertension Insomnia Obstructive sleep apnea On home oxygen therapy Pain, chronic Physical debility Restless leg syndrome Seizure disorder Seizures Sleep apnea Smoker Smokes with greater than 40 pack year history Home Medications aspirin 81 mg PO DAILY 01/07/19 [History Last Taken 10/20/20] duloxetine 20 mg PO DAILY 01/07/19 [History Last Taken 10/20/20] levothyroxine 50 mcg PO DAILY 01/07/19 [History Last Taken 10/20/20] potassium chloride 20 meq PO BID 01/07/19 [History Last Taken 10/20/20] risperidone 0.25 mg PO DAILY 01/07/19 [History Last Taken 10/19/20] mirtazapine 7.5 mg tablet 7.5 mg PO QHS tablet 02/21/19 [History Last Taken 10/19/20] latanoprost (PF) 1 drp EACHEYE QHS 08/08/19 [History Last Taken 10/19/20] methadone 10 mg PO TID 08/08/19 [History Last Taken 10/20/20] nicotine 1 patch TOPICAL DAILY 08/08/19 [History Last Taken 10/20/20] ropinirole 2 mg PO QHS 08/08/19 [History Last Taken 10/19/20] acetaminophen 650 mg PO Q6H PRN PRN tablet 08/11/19 [Rx Last Taken Unknown] albuterol sulfate 90 mcg/actuation aerosol inhaler 1 inh INHALATION ONCE 05/13/20 [History Last Taken 3 Days Ago ~10/17/20] calcium carbonate 500 mg calcium (1,250 mg) tablet 500 mg PO DAILY 05/13/20 [History Last Taken 10/20/20] fluticasone furoate 100 mcg-vilanterol 25 mcg/dose inhalation powder 2 puff INHALATION DAILY 05/13/20 [History Last Taken 10/20/20] mirabegron 25 mg tablet,extended release 24 hr 25 mg PO BID tab 05/13/20 [History Last Taken 10/20/20] omeprazole 20 mg capsule,delayed release 20 mg PO DAILY cap 05/13/20 [History Last Taken 10/20/20] sennosides 8.6 mg-docusate sodium 50 mg tablet 2 tab PO BID 05/13/20 [History Last Taken 10/20/20] brimonidine 0.15 % eye drops 1 drp OPHTHALMIC BID 07/09/20 [History Last Taken 10/20/20] benztropine 2 mg tablet 2 mg PO BID #60 tab 10/13/20 [Rx Last Taken 10/20/20] oxcarbazepine 600 mg tablet 600 mg PO BID #60 tab 10/13/20 [Rx Last Taken 10/20/20] phenobarbital 32.4 mg tablet 32.4 mg PO BID #60 tab 10/13/20 [Rx Last Taken 10/20/20] cholecalciferol (vitamin D3) 1,250 mcg PO WE 10/20/20 [History Last Taken 10/15/20] multivitamin 1 tab PO DAILY 10/20/20 [History Last Taken 10/20/20] temazepam 30 mg PO QHS PRN 10/20/20 [History Last Taken 10/19/20] Allergy/AdvReac Type Severity Reaction Status Date / Time codeine Allergy Mild HIVES Verified 10/20/20 12:50 Penicillins Allergy Anaphylaxis Verified 10/20/20 12:50 Family History Mother Diabetes Heart disease Hypertension CAD (coronary artery disease) CVA (cerebral vascular accident) Thyroid disorder Father Colon cancer Surgical History History of bilateral carpal tunnel release History of bilateral cataract extraction History of blepharoplasty History of cystoscopy History of esophagogastroduodenoscopy (EGD) (~03/07/19) History of right hip replacement History of right salpingo-oophorectomy S/P appendectomy S/P laparoscopic cholecystectomy Status post ORIF of fracture of ankle Social History (Updated 10/20/20 @ 17:56 by Chapis Silva NP-C) Smoking Status: Current every day smoker tobacco type: cigarettes Tobacco: How many years used: 50 alcohol intake: never substance use type: does not use ROS Constitutional Constitutional: Denies chills or fatigue Cardiovascular Cardiovascular: Denies chest pain Respiratory/Chest Respiratory/Chest: Denies cough Gastrointestinal Gastrointestinal: Reports abdominal pain, constipation, nausea and vomiting Integumentary Integumentary: Denies jaundice Neurologic Neurologic: Denies focal weakness Physical Exam Const oriented x3 General Appearance: cooperative HEENT normocephalic Eyes PERRL Neck full ROM Resp normal respiratory effort Cardio Rate: regular rate GI soft to palpation and non-distended GI Narrative: Tender in the lower abdomen with no guarding or rebound Lab / Micro Data Result Diagrams: 10/22/20 05:56 10/22/20 05:56 Labs: Laboratory Results - last 24 hr 10/22/20 10/22/20 05:56 05:56 WBC 10.1 RBC 4.25 Hgb 12.6 Hct 39.2 MCV 92.2 MCH 29.6 MCHC 32.1 RDW Std Deviation 44.9 H RDW Coeff of Jordin 13.3 Plt Count 302 MPV 8.5 Immature Gran % (Auto) 0.400 Neut % (Auto) 79.9 H Lymph % (Auto) 14.6 L [place] % (Auto) 4.9 Eos % (Auto) 0.1 Baso % (Auto) 0.1 Absolute Neuts (auto) 8.1 H Absolute Lymphs (auto) 1.47 Nucleated RBC % 0 Sodium 136 Potassium 3.6 Chloride 99 Carbon Dioxide 34.0 H Anion Gap 3 L BUN 10 Creatinine 0.46 L Estim Creat Clear Calc 44.56 Est GFR (MDRD) Af Amer 173 Est GFR (MDRD) Non-Af 143 BUN/Creatinine Ratio 21.9 H Glucose 166 H Calcium 8.8 Micro: Microbiology 10/22/20 08:10 Gastric Occult Blood - Final [facility] Radiology Impression Abdomen X-Ray 10/22/20 09:20 IMPRESSION: Moderate amount of fecal material is seen in the colon. Electronically Signed: Isaias Munroe MD at 9:34 EDT , Service support ,
--- NOTE | 2020-10-22 11:46 | CASEMGMT ---
Social Work Note SW received call from Ayna at [facility] stating they are able to accept pt. Yana states to make sure pt is aware she will not be allowed to smoke while at the facility and Yana also asked if pt has had her COVID vaccinations yet. SW in to speak with pt. SW updated pt that [facility] is able to accept pt but wanted to make sure pt was aware she will not able to smoke there. Pt states understanding. SW asked pt about the COVID vaccinations. Pt states she has had both COVID vaccination shots. SW updated pt that [facility] is able to accept pt pending pre-cert and that this worker will call her son Yaakov to update him. Pt states understanding. SW placed a call to pt's son Yaakov and updated him that pt is agreeable to SNF, will be going to [facility] pending pre-cert. Yaakov states understanding. Plan: [facility] pending pre-cert Cheyanne Cee UTILITY BILL COLLECTOR, PRODUCT ANALYST
[2020-10-22] MEDS: Fleet Enema 1 ML RC (12:08)
--- NOTE | 2020-10-22 12:44 | NURSING ---
fleet enema given with no result. soap suds enema given pt given 500cc warm soapy water, pt passed 1 small round hard stool.
[2020-10-22] MEDS: Benztropine 2 MG Tablet PO ×2 (13:04→21:07)
[2020-10-22] MEDS: OXcarbazepine 600 MG Tablet PO ×2 (13:05→21:07)
[2020-10-22] MEDS: DULoxetine Hcl 20 MG Capsule PO (13:05)
[2020-10-22] MEDS: RisperiDONE 0.25 MG Tablet PO (13:06)
[2020-10-22] MEDS: Phenobarbital 32.4 MG Tablet PO ×2 (13:06→21:07)
--- NOTE | 2020-10-22 13:16 | PN.HOSP_ITS ---
Documented by User: Rolando MARTINEZ 10/22/20 13:27 Subjective Subjective: Patient is a 70-year-old female currently lying in bed, alert and oriented x3. Today patient complains of worsening abdominal pain and continuing constipation. Patient reluctant to go to SNF, however it was commits that this was in her best interest. Patient is agreeable understands that she needs to go to care home facility for rehabilitation. Denies chest pain, shortness of breath, palpitations, fever, chills, N/V/D. Objective Data Objective Data Vital Signs: Vital Signs Temp Pulse Resp BP Pulse Ox 99.1 F 71 16 100/55 L 96 10/22/20 12:45 10/22/20 12:45 10/22/20 12:45 10/22/20 12:45 10/22/20 12:45 Oxygen Flow Rate (L/min) 3 Oxygen Delivery Method Nasal Cannula Weight: 187 lb 9.814 oz Body Mass Index (BMI) 31.2 Intake & Output: Intake and Output for Last 24 Hours 10/20/20 10/21/20 10/22/20 23:59 23:59 23:59 Intake Total 700 / 800 150 / 150 Output Total 850 / 2050 1550 / 1550 Balance -150 / -1250 -1400 / -1400 Lab / Micro Data Result Diagrams: 10/22/20 05:56 10/22/20 05:56 Labs: Laboratory Results - last 24 hr 10/22/20 10/22/20 05:56 05:56 WBC 10.1 RBC 4.25 Hgb 12.6 Hct 39.2 MCV 92.2 MCH 29.6 MCHC 32.1 RDW Std Deviation 44.9 H RDW Coeff of Jordin 13.3 Plt Count 302 MPV 8.5 Immature Gran % (Auto) 0.400 Neut % (Auto) 79.9 H Lymph % (Auto) 14.6 L [place] % (Auto) 4.9 Eos % (Auto) 0.1 Baso % (Auto) 0.1 Absolute Neuts (auto) 8.1 H Absolute Lymphs (auto) 1.47 Nucleated RBC % 0 Sodium 136 Potassium 3.6 Chloride 99 Carbon Dioxide 34.0 H Anion Gap 3 L BUN 10 Creatinine 0.46 L Estim Creat Clear Calc 44.56 Est GFR (MDRD) Af Amer 173 Est GFR (MDRD) Non-Af 143 BUN/Creatinine Ratio 21.9 H Glucose 166 H Calcium 8.8 Micro: Microbiology 10/22/20 08:10 Vomitus Gastric Occult Blood - Final Radiography Diagnostic Testing: Radiology Impression Abdomen X-Ray 10/22/20 09:20 IMPRESSION: Moderate amount of fecal material is seen in the colon. Electronically Signed: Isaias Munroe MD at 9:34 EDT , Service support , Physical Exam Narrative See subjective. Const alert and oriented x3 Constitutional Narrative: Patient appears to be in a moderate amount of discomfort and reports that she needs her pain medication. HEENT head/scalp atraumatic and oropharynx normal Head and Scalp: normocephalic Eyes EOMs intact bilaterally Neck no lymphadenopathy, supple and no JVD Resp normal respiratory effort, no retractions, no use of accessory muscles and clear to auscultation bilaterally Cardio regular rate, regular rhythm, no murmurs and no rub GI normal to inspection, nondistended, normoactive bowel sounds Palpation: tender LUQ and RUQ Extremity full ROM Skin no rashes or lesions noted, no wounds and no jaundice Neuro CN's II-XII intact bilaterally Psych affect normal Assessment & Plan Assessment/Plan (1) Fall: Status: Acute Code(s): W19.XXXA - Unspecified fall, initial encounter (2) Right foot pain: Status: Acute Code(s): M79.671 - Pain in right foot (3) Debility: Status: Acute Code(s): R53.81 - Other malaise (4) Abdominal pain: Status: Acute Code(s): R10.9 - Unspecified abdominal pain (5) Constipation: Status: Acute Code(s): K59.00 - Constipation, unspecified Plan: Patient is a 70-year-old female who was admitted on 10/20/2020 status post mechanical fall. As per subjective, patient reports of moderate bilateral upper quadrant abdominal pain and continuing constipation from yesterday. Abdominal x-ray will revealed a moderate amount of stool in the colon, general surgery consulted. Enemas ordered per general surgery, surgical intervention not indicated. Small amount of stool relieved by enemas. Lactulose ordered. Patient reports nausea and abdominal pain are better for now. Patient agreeable to SNF placement, discharge pending resolution of ongoing abdominal pain/constipation. 1) Physical debility/fall/fucntional decline X-ray of the chest right foot and ankle demonstrated only soft tissue swelling and no evidence of fracture. CT of abdomen and pelvis unremarkable. Plan; as above. 2) right ankle/foot pain X-ray of the right foot and ankle demonstrate only soft tissue swelling and no evidence of fracture. Plan; Tylenol and OxyIR as needed. 3) Abdominal pain/constipation. As above. CT of the abdomen and pelvis on admission demonstrated no acute findings. DVT prophylaxis - Lovenox [place] Patient seen by Rolando Palencia PA-C, under the supervision of Dr. Greene. Documented by User: Dr. Silva Greene MD 10/22/20 16:22 Objective Data Lab / Micro Data Result Diagrams: 10/22/20 05:56 10/22/20 05:56 Visit Charges Inpatient E&M: 06176 Subs Hosp L3 Addendum Patient seen and examined. She tells me she has had profuse bilious vomiting overnight,with no diarrhea. She says she is unable to pass gas and hasnt had any bowel movement. She has a mild fever of 99.4 Fahrenheit today. She initially said vomiting just started overnight, but later said it had been going on for about 5 days. Reveiw of systems otherwise negative. Labs and vitals reviewed. Const alert and oriented x3, lethargic HEENT head/scalp atraumatic and oropharynx normal Head and Scalp: normocephalic Eyes EOMs intact bilaterally Neck no lymphadenopathy, supple and no JVD Resp normal respiratory effort, no retractions, no use of accessory muscles and clear to auscultation bilaterally Cardio regular rate, regular rhythm, no murmurs and no rub GI normal to inspection, minimal bowel sounds, has bilious emesis on her gown. Palpation: tender LUQ and RUQ Extremity full ROM Skin no rashes or lesions noted, no wounds and no jaundice Neuro CN's II-XII intact bilaterally Psych affect normal Plan is to get KUB to assess for obstruction or ileus and also to get general surgery consult. Keep n.p.o. for now and continue hydration with IV fluid. IV Zofran. X-ray did not reveal any dilated small bowel and only showed copious stool in the colon. Per general surgery, to give patient an enema to help with bowel movements as she says she had not had a bowel movement in over 5 days. Rest as per Rolando Palencia PA-C's note, which I have reviewed and endorsed. Inpatient E&M: 18890 Subs Hosp L3
[2020-10-22] MEDS: Lactulose 20 GM/30 ML UDC PO (14:04)
[2020-10-22] MEDS: Pramipexole Di-HCl 1 MG Tablet PO (21:07)
[2020-10-22] MEDS: Mirabegron 25 MG TAB.ER.24H PO (21:07)
[2020-10-22] MEDS: Mirtazapine 15 MG Tablet 7.5 MG PO (21:07)
[2020-10-22] MEDS: Latanoprost 0.005% 1 Bottle 1 DRP OPHTHALMIC (21:08)
[2020-10-22] MEDS: Temazepam 15 MG Capsule 30 MG PO (21:14)
[2020-10-23] VITALS (7 sets, daily range): BP systolic 92–107; BP diastolic 46–63; PULSE 69–91; RESP 12–16; TEMP 36.9–37.3; O2SAT 95–97
[2020-10-23] MEDS: Levothyroxine 50 MCG Tablet PO (05:51)
[2020-10-23] MEDS: Methadone 10 MG Tablet PO ×3 (05:51→20:42)
[2020-10-23] MEDS: 0.9% Normal Saline 1,000 ML 100 ML IV ×2 (05:51→16:30)
[2020-10-23 05:56] LABS: Absolute Lymphocyte Count 1.97 X10^3/uL (0.83-4.51); Absolute Neutrophil Count 4.6 X10^3/uL (2.0-7.7); Basophil# 0.04 X10^3/uL; Basophil% 0.5 % (0-1); Eosinophil# 0.11 X10^3/uL; Eosinophils% 1.5 % (0-5); Hematocrit 33.3 % (37-47); Hemoglobin 10.5 g/dL (12.0-15.0); Lymphocyte # 1.97 X10^3/ul (0.83-4.51); Lymphocyte % 26.7 % (19-41); Mean Corp Hgb Conc 31.5 g/dL (32-36); Mean Corpuscular Hgb 29.7 pg (27.0-32.0); Mean Corpuscular Volume 94.1 fL (81-99); Mean Platelet Vol. 8.6 fl (6.2-12.0); Monocyte# 0.69 X10^3/uL; Monocyte% 9.3 % (0-10); NRBC Flagged by Analyzer 0 % (0-5); Neutrophil # 4.55 X10^3/uL (2.7-7.7); Neutrophil % 61.7 % (47-70); Platelet Count 271 K/mm3 (150-450); RBC Distribution Width CV 13.5 % (11.6-14.6); RBC Distribution Width SD 46.5 fl (35.1-43.9); Red Blood Count 3.54 M/mm3 (4.2-5.4); White Blood Count 7.4 K/mm3 (4.4-11.0)
[2020-10-23 06:18] LABS: Anion Gap 4 (5-15); BUN 10 mg/dL (7-18); Calcium,Total 7.9 mg/dL (8.5-10.1); Chloride 104 mmol/L (98-107); Creatinine, Serum 0.42 mg/dL (0.55-1.02); EST Glomerular Filtration Rate 160 mL/min (>60); Est Glom Filt Rate - Afr Amer 193 mL/min (>60); Estimated Creatinine Clearance 46.43 ml/min; Glucose 107 mg/dL (74-106); Potassium 3.3 mmol/L (3.5-5.1); Sodium Level 139 mmol/L (136-145)
--- NOTE | 2020-10-23 07:15 | CT_ITS ---
STUDY: CT ABDOMEN AND PELVIS WITH CONTRAST REASON FOR EXAM: Female, 70 years old. Abdominal pain. Chronic constipation. Lower abdominal pain. RADIATION DOSAGE (If Supplied By Facility): CTDIvol = ( 17.09 ) mGy, DLP = ( 1136.32 ) mGycm TECHNIQUE: Transaxial images were obtained from the dome of the diaphragm to the symphysis pubis with oral contrast. Oral and amp;amp; IV Gastrografin and amp;amp; 100mL Isovue-300 was administered. Sagittal and coronal images were reconstructed. Individualized dose optimization techniques were used for this CT. COMPARISON: Comparison is made with prior study dated 10/20/2020. FINDINGS: Stable mild increased markings at the lung bases suggestive of scarring. The visualized portions of the heart are within normal limits. Mild degree of central intrahepatic biliary ducts. There are surgical clips in the gallbladder fossa consistent with a prior cholecystectomy. Normal spleen. There are pancreatic calcifications in the distribution of the ducts consistent with chronic pancreatitis. Normal bilateral adrenal glands. Normal right kidney. Normal left kidney. There is a small hiatal hernia. Normal small intestine. Normal colon. There is non-visualization of the appendix. There is scattered atherosclerotic calcification of the abdominal aorta, without a demonstrated aneurysm. Normal inferior vena cava. Normal retroperitoneum. Normal urinary bladder. There is absence of the uterus consistent with a prior hysterectomy. Normal abdominal wall. There are mild degenerative changes of the visualized lumbar spine. Stable minimal anterolisthesis of L4 on L5 most likely secondary to facet joint osteoarthritis. The patient is status post right hip replacement. CT/Abdomen/Pelvis WITH Contrast IMPRESSION: Stable examination. Electronically Signed: Isaias Munroe MD at 12:27 EDT , Service support ,
[2020-10-23] MEDS: Ipratropium/Albuterol Sulfate 3 ML AMPUL.NEB INHALATION ×2 (07:24→13:32)
[2020-10-23] MEDS: Potassium Chloride Oral Tablet 20 MEQ PO ×2 (07:55→16:31)
--- NOTE | 2020-10-23 08:19 | PN.SURG_ITS ---
Subjective Subjective: The patient reports she is still having lower abdominal pain. She did have 2 enemas yesterday and that did yield a small formed bowel movement. She had no vomiting overnight. Objective Data Objective Data Vital Signs: Vital Signs Temp Pulse Resp BP Pulse Ox 99.1 F 91 16 95/51 L 95 10/23/20 07:44 10/23/20 07:44 10/23/20 07:44 10/23/20 07:44 10/23/20 07:44 Oxygen Flow Rate (L/min) 3 Oxygen Delivery Method Nasal Cannula Weight: 187 lb 9.814 oz Body Mass Index (BMI) 31.2 Intake & Output: Intake and Output for Last 24 Hours 10/21/20 10/22/20 10/23/20 23:59 23:59 23:59 Intake Total 700 / 800 1150 / 1150 1070 / 1070 Output Total 850 / 2050 1550 / 1550 300 / 300 Balance -150 / -1250 -400 / -400 770 / 770 Lab / Micro Data Result Diagrams: 10/23/20 05:31 10/23/20 05:31 Labs: Laboratory Results - last 24 hr 10/23/20 10/23/20 05:31 05:31 WBC 7.4 RBC 3.54 L Hgb 10.5 L Hct 33.3 L MCV 94.1 MCH 29.7 MCHC 31.5 L RDW Std Deviation 46.5 H RDW Coeff of Jordin 13.5 Plt Count 271 MPV 8.6 Immature Gran % (Auto) 0.300 Neut % (Auto) 61.7 Lymph % (Auto) 26.7 [place] % (Auto) 9.3 Eos % (Auto) 1.5 Baso % (Auto) 0.5 Absolute Neuts (auto) 4.6 Absolute Lymphs (auto) 1.97 Nucleated RBC % 0 Sodium 139 Potassium 3.3 L Chloride 104 Carbon Dioxide 31.0 Anion Gap 4 L BUN 10 Creatinine 0.42 L Estim Creat Clear Calc 46.43 Est GFR (MDRD) Af Amer 193 Est GFR (MDRD) Non-Af 160 BUN/Creatinine Ratio 24.0 H Glucose 107 H Calcium 7.9 L Micro: Microbiology 10/22/20 08:10 Vomitus Gastric Occult Blood - Final Radiography Diagnostic Testing: Radiology Impression Abdomen X-Ray 10/22/20 09:20 IMPRESSION: Moderate amount of fecal material is seen in the colon. Electronically Signed: Isaias Munroe MD at 9:34 EDT , Service support , Physical Exam Cardio regular rate and regular rhythm GI Inspection: Negative for abdominal distention Palpation: tender other (Lower abdomen) Assessment & Plan Assessment/Plan (1) Nausea & vomiting: QUALIFIERS: Vomiting type: unspecified Vomiting Intractability: unspecified Qualified Code(s): R11.2 - Nausea with vomiting, unspecified (2) Constipation: QUALIFIERS: Constipation type: unspecified constipation type Qual ified Code(s): K59.00 - Constipation, unspecified (3) Abdominal pain: QUALIFIERS: Abdominal location: lower abdomen, unspecified Qualified Code(s): R10.30 - Lower abdominal pain, unspecified PLAN: The patient is still having lower abdominal pain. Her nausea and vomiting have improved. I will order CT scan with oral contrast to see if there is any changes since her last CT was done without contrast. If the CT does not show any pathology I would recommend trying to resume a diet. Jr Dunlap MD Pager: [facility] [address] [place] [address], [address] [place] [address] Office:
--- NOTE | 2020-10-23 09:44 | CASEMGMT ---
Social Work Note GRAHAM placed a call to Yana at [facility] and asked her to let this worker know when pre-cert is obtained. SW in to speak with pt. SW updated pt that this worker did call pt's son Yaakov yesterday to udpate him on plan for [facility]. Pt asked if Yaakov was agreeable. SW informed pt that Yaakov was agreeable, he stated understanding on the plan, and thanked this worker for providing the update. SW informed pt that this wroker will be back to update pt once pre-cert is obtained. Pt states understanding. Plan: [facility] pending pre-cert Cheyanne Cee LIVE TRUCK OPERATOR, CERTIFIED PHYSICAL THERAPIST ASSISTANT
--- NOTE | 2020-10-23 10:07 | PN.HOSP_ITS ---
Documented by User: Maryuri Medeiros NP, OUTPATIENT FACILITY PHYSICAL THERAPIST-C 10/23/20 10:20 Subjective Subjective: Patient seen and examined. Denies abdominal pain, nausea, vomiting. States she has passing flatus, no bowel movement yet. Drinking contrast to undergo CT of abdomen/pelvis. Amenable to SNF if her son feels this is what is best for her. Objective Data Objective Data Vital Signs: Vital Signs Temp Pulse Resp BP Pulse Ox 99.1 F 91 16 95/51 L 95 10/23/20 07:44 10/23/20 07:44 10/23/20 07:44 10/23/20 07:44 10/23/20 07:44 Oxygen Flow Rate (L/min) 3 Oxygen Delivery Method Nasal Cannula Weight: 187 lb 9.814 oz Body Mass Index (BMI) 31.2 Intake & Output: Intake and Output for Last 24 Hours 10/21/20 10/22/20 10/23/20 23:59 23:59 23:59 Intake Total 700 / 800 1150 / 1150 1070 / 1070 Output Total 850 / 2050 1550 / 1550 300 / 300 Balance -150 / -1250 -400 / -400 770 / 770 Lab / Micro Data Result Diagrams: 10/23/20 05:31 10/23/20 05:31 Labs: Laboratory Results - last 24 hr 10/23/20 10/23/20 05:31 05:31 WBC 7.4 RBC 3.54 L Hgb 10.5 L Hct 33.3 L MCV 94.1 MCH 29.7 MCHC 31.5 L RDW Std Deviation 46.5 H RDW Coeff of Jordin 13.5 Plt Count 271 MPV 8.6 Immature Gran % (Auto) 0.300 Neut % (Auto) 61.7 Lymph % (Auto) 26.7 [place] % (Auto) 9.3 Eos % (Auto) 1.5 Baso % (Auto) 0.5 Absolute Neuts (auto) 4.6 Absolute Lymphs (auto) 1.97 Nucleated RBC % 0 Sodium 139 Potassium 3.3 L Chloride 104 Carbon Dioxide 31.0 Anion Gap 4 L BUN 10 Creatinine 0.42 L Estim Creat Clear Calc 46.43 Est GFR (MDRD) Af Amer 193 Est GFR (MDRD) Non-Af 160 BUN/Creatinine Ratio 24.0 H Glucose 107 H Calcium 7.9 L Micro: Microbiology 10/22/20 08:10 Vomitus Gastric Occult Blood - Final Physical Exam Const alert, oriented x3 and no apparent distress Orientation / Consciousness: awake, oriented to person, oriented to place and oriented to time HEENT normocephalic and moist oral mucous membranes Eyes PERRL, EOMs intact bilaterally and conjunctivae normal Neck no lymphadenopathy Resp normal respiratory effort and clear to auscultation bilaterally Cardio regular rate, regular rhythm and no murmurs Peripheral Pulses: pulses 2+ throughout GI normal to inspection, nondistended, normoactive bowel sounds, non-tender and non-distended Extremity normal to inspection Skin no rashes or lesions noted Lesions: no lesions Rashes: no rashes Trauma: no lacerations or abrasions Neuro oriented x3 Sensorium / Orientation: awake and alert Psych affect normal Assessment & Plan Assessment/Plan (1) Debility: (2) Constipation: QUALIFIERS: Constipation type: unspecified constipation type Qualified Code(s): K59.00 - Constipation, unspecified PLAN: 1. Debility with fall-amenable to SNF pending insurance approval. PT/OT. Imaging negative for acute findings/fractures. 2. Abdominal pain/Constipation-General surgery consulted. CT of abdomen pelvis pending. If CT is unremarkable, will resume diet and continue aggressive bowel regimen. 3. Seizure history-continue home medications. 4. COPD with chronic hypoxic respiratory failure-on baseline home O2. 5. CHUY-continue PAP regimen. 6. Restless leg syndrome 7. Hypothyroidism-continue Synthroid. 8. Depression-continue home medications. 9. Degenerative disc disease 10. Stress bladder incontinence-continue home medications. 11. Tobacco dependence-encouraged cessation. Nicotine replacement patch. DVT prophylaxis- Lovenox [place] Discharge planning: SNF pending insurance approval. This patient was seen by MAURICIO Brown under the supervision of Dr. Greene. Documented by User: Dr. Silva Greene MD 10/23/20 15:30 Objective Data Lab / Micro Data Result Diagrams: 10/23/20 05:31 10/23/20 05:31 Visit Charges Inpatient E&M: [id number] Subs Hosp L2 Addendum Patient seen and examined. She did have any more vomiting overnight. She has no complaints this morning and feels well. Patient tells me that she wants medical team to call her son to touch base with him about her going to a halfway as she really does not want to go but if her son says she should call she well. She is to have a CT of the abdomen with oral contrast today. O/E: Const alert and oriented x3, HEENT head/scalp atraumatic and oropharynx normal Head and Scalp: normocephalic Eyes EOMs intact bilaterally Neck no lymphadenopathy, supple and no JVD Resp normal respiratory effort, no retractions, no use of accessory muscles and clear to auscultation bilaterally Cardio regular rate, regular rhythm, no murmurs and no rub GI normal to inspection, minimal bowel sounds, has bilious emesis on her gown. Palpation: tender LUQ and RUQ Extremity full ROM Skin no rashes or lesions noted, no wounds and no jaundice Neuro CN's II-XII intact bilaterally Psych affect normal Patient had KUB yesterday which was negative for any obstruction but showed copious amount of stool. She did get an enema which helped with bowel movements and feels better today. CT of the abdomen and pelvis with contrast today showed a small hiatal hernia with no evidence of obstruction. PT OT on board. Fall precautions. Patient disposition is correction facility pending pre-CERT. Rest as per MAURICIO Brown's notes which I have reviewed and endorsed. Inpatient E&M: 46336 Subs Hosp L2
--- NOTE | 2020-10-23 10:26 | NURSING ---
pt to ct via bed
[2020-10-23] MEDS: BRIMONIDINE 0.15% 5 ML Bottle 1 DRP OPHTHALMIC ×2 (11:06→20:40)
[2020-10-23] MEDS: DULoxetine Hcl 20 MG Capsule PO (11:08)
[2020-10-23] MEDS: Benztropine 2 MG Tablet PO ×2 (11:08→20:42)
[2020-10-23] MEDS: Enoxaparin 40 MG/0.4 ML Syringe SC (11:09)
[2020-10-23] MEDS: Pantoprazole Sodium 20 MG Tablet PO (11:09)
[2020-10-23] MEDS: Aspirin E.C. 81 MG Tablet PO (11:09)
[2020-10-23] MEDS: Mirabegron 25 MG TAB.ER.24H PO ×2 (11:09→20:42)
[2020-10-23] MEDS: OXcarbazepine 600 MG Tablet PO ×2 (11:10→20:41)
[2020-10-23] MEDS: Polyethylene Glycol 3350 17 GM PACKET PO (11:10)
[2020-10-23] MEDS: RisperiDONE 0.25 MG Tablet PO (11:10)
[2020-10-23] MEDS: Phenobarbital 32.4 MG Tablet PO ×2 (11:14→20:42)
--- NOTE | 2020-10-23 14:48 | CASEMGMT ---
Social Work Note SW faxed updated clinicals to [facility]. Plan: [facility] pending pre-cert Cheyanne Cee TANK CAR RECONDITIONER, CLINICAL DIETITIAN
--- NOTE | 2020-10-23 16:15 | CASEMGMT ---
ERIC BELLE NOTE: Pt qualifies for a Palliative referral per the [facility] palliative screening tool at this time. Dr Greene made aware but is not agreeable to Palliative referral at this time. Mariam LARSON RN CM
[2020-10-23] MEDS: 0.9% Saline Lock 10 ML Syringe IV (17:27)
[2020-10-23] MEDS: Latanoprost 0.005% 1 Bottle 1 DRP OPHTHALMIC (20:40)
[2020-10-23] MEDS: Mirtazapine 15 MG Tablet 7.5 MG PO (20:41)
[2020-10-23] MEDS: Pramipexole Di-HCl 1 MG Tablet PO (20:41)
[2020-10-24] VITALS (7 sets, daily range): BP systolic 137–152; BP diastolic 70–83; PULSE 72–97; RESP 16–20; TEMP 36.8–37.4; O2SAT 97–100
[2020-10-24] MEDS: 0.9% Normal Saline 1,000 ML 100 ML IV ×2 (01:30→12:22)
[2020-10-24] MEDS: Methadone 10 MG Tablet PO ×2 (05:39→13:33)
[2020-10-24] MEDS: Levothyroxine 50 MCG Tablet PO (05:39)
[2020-10-24] MEDS: Senna/Docusate Sodium 1 Tablet 2 TABLET PO (05:39)
--- NOTE | 2020-10-24 06:34 | PN.SURG_ITS ---
Subjective Subjective: Patient reports he vomited with trying to eat regular food yesterday. She has no lower abdominal pain today and did have a bowel movement Objective Data Objective Data Vital Signs: Vital Signs Temp Pulse Resp BP Pulse Ox 98.6 F 82 18 137/70 H 97 10/24/20 02:10 10/24/20 02:10 10/24/20 02:10 10/24/20 02:10 10/24/20 02:10 Oxygen Flow Rate (L/min) 3 Oxygen Delivery Method Nasal Cannula Weight: 187 lb 9.814 oz Body Mass Index (BMI) 31.2 Intake & Output: Intake and Output for Last 24 Hours 10/22/20 10/23/20 10/24/20 23:59 23:59 23:59 Intake Total 1150 / 1150 2053.34 / 2053.34 900 / 900 Output Total 1550 / 1550 300 / 300 600 / 600 Balance -400 / -400 1753.34 / 1753.34 300 / 300 Lab / Micro Data Result Diagrams: 10/23/20 05:31 10/23/20 05:31 Micro: Microbiology 10/22/20 08:10 Vomitus Gastric Occult Blood - Final Radiography Diagnostic Testing: Radiology Impression Abdomen/Pelvis CT 10/23/20 07:15 IMPRESSION: Stable examination. Electronically Signed: Isaias Munroe MD at 12:27 EDT , Service support , Physical Exam Const no apparent distress Resp normal respiratory effort Cardio regular rate and regular rhythm GI normal to inspection, nondistended, normoactive bowel sounds Assessment & Plan Assessment/Plan (1) Nausea & vomiting: QUALIFIERS: Vomiting type: unspecified Vomiting Intractability: unspecified Qualified Code(s): R11.2 - Nausea with vomiting, unspecified (2) Constipation: QUALIFIERS: Constipation type: unspecified constipation type Qualified Code(s): K59.00 - Constipation, unspecified PLAN: The patient did have bowel movement and she tried regular food but then threw it up yesterday. She blames it on her hiatal hernia but reviewing her CT scan her hiatal hernia seems very small and there is no large part of her stomach up in her chest on the CT scan. I am unsure why she is having vomiting. I do not believe it is anything surgical and her lower abdominal pain has resolved. I will sign off at this time please call me if there are any issues or concerns. Jr Dunlap MD Pager: [facility] [address] [place] [address], [address] [place] [address] Office:
[2020-10-24] MEDS: Ipratropium/Albuterol Sulfate 3 ML AMPUL.NEB INHALATION ×3 (06:47→20:00)
[2020-10-24 08:23] LABS: Anion Gap 7 (5-15); BUN 5 mg/dL (7-18); BUN/Creat Ratio 13.9 RATIO (10-20); Calcium,Total 8.3 mg/dL (8.5-10.1); Chloride 103 mmol/L (98-107); Creatinine, Serum 0.36 mg/dL (0.55-1.02); EST Glomerular Filtration Rate 189 mL/min (>60); Est Glom Filt Rate - Afr Amer 229 mL/min (>60); Estimated Creatinine Clearance 46.43 ml/min; Glucose 99 mg/dL (74-106); Potassium 3.4 mmol/L (3.5-5.1); Sodium Level 136 mmol/L (136-145)
[2020-10-24] MEDS: Mirabegron 25 MG TAB.ER.24H PO (09:51)
[2020-10-24] MEDS: BRIMONIDINE 0.15% 5 ML Bottle 1 DRP OPHTHALMIC ×2 (09:51→20:41)
[2020-10-24] MEDS: Potassium Chloride Oral Tablet 20 MEQ PO ×2 (09:51→17:29)
[2020-10-24] MEDS: Polyethylene Glycol 3350 17 GM PACKET PO (09:51)
[2020-10-24] MEDS: Benztropine 2 MG Tablet PO (09:51)
[2020-10-24] MEDS: DULoxetine Hcl 20 MG Capsule PO (09:52)
[2020-10-24] MEDS: Aspirin E.C. 81 MG Tablet PO (09:52)
[2020-10-24] MEDS: Enoxaparin 40 MG/0.4 ML Syringe SC (09:52)
[2020-10-24] MEDS: OXcarbazepine 600 MG Tablet PO (09:52)
[2020-10-24] MEDS: Pantoprazole Sodium 20 MG Tablet PO (09:53)
[2020-10-24] MEDS: RisperiDONE 0.25 MG Tablet PO (09:53)
[2020-10-24] MEDS: Phenobarbital 32.4 MG Tablet PO (09:56)
--- NOTE | 2020-10-24 12:57 | TREXTCAR_ITS ---
Documented by User: Maryuri Medeiros [employer], [employer] 10/24/20 13:06 Diet 10/23/20 16:44 Diet: Regular - General Is pt able to select menu?: Yes Routine Orders/Code Status Enema Type: Fleetz Enema Frequency: Daily PRN Suppository Type: Dulcolax 10mg Suppository Frequency: Daily PRN O2 Liters per Minute: 3 O2 Frequency: Continuous Keep PO Greater than or Equal to (%): 90 Routine Lab Work: - (CBC, BMP weekly) Code Status: DNRCC-A (no intubation) Suggestions for Active Care Change Position every (hours): 2 Times a day to sit in chair: 3 Therapies Physical Therapy: Eval and Treat Occupational Therapy: Eval and Treat Problem/Diagnosis (1) Constipation: Status: Acute (2) Debility: Status: Acute Allergies/Procedures Done in Hospital Allergies codeine Allergy (Mild, Verified 10/20/20 12:50) HIVES Penicillins Allergy (Verified 10/20/20 12:50) Anaphylaxis Procedures: None Type of Care/Length of Stay Estimated LOS: Convalescent Care Less Than 30 days Type of Care Needed: Skilled Rehab Potential: Good Prognosis: Good Additional Orders/Day of Discharge H&P will serve as current which was dated: 10/20/20 Day of Discharge: 10/24/20 Dietary and Speech Recommendations Dietitian Recommendations/Changes: Suggest advance diet as medically able to transitional/carb-controlled as needed. Will add ONS as needed once diet advanced from NPO. Carb-controlled diet education/restriction as needed if blood glucose remains elevated. Discharge Plan Admission Admit Date/Time: 10/22/20 11:27 Attending Provider: Silva Greene Primary Care Provider: Patel Veliz Chi Consulting Providers: Jr Dunlap Discharge Orders/Prescriptions Prescriptions: Continued Myrbetriq 25 mg tablet extended release 24 hr 25 mg PO BID RF: 0 omeprazole 20 mg capsule,delayed release(DR/EC) 20 mg PO DAILY RF: 0 sennosides-docusate sodium [Senexon-S] 8.6-50 mg tablet 2 tab PO BID RF: 0 calcium carbonate [Oyster Shell Calcium] 500 mg calcium (1,250 mg) tablet 500 mg PO DAILY RF: 0 fluticasone furoate-vilanterol 100-25 mcg/dose blister with device 2 puff INHALATION DAILY RF: 0 albuterol sulfate [Ventolin HFA] 90 mcg/actuation HFA aerosol inhaler 1 inh INHALATION ONCE RF: 0 brimonidine 0.15 % drops 1 drp OPHTHALMIC BID RF: 0 benztropine 2 mg tablet 2 mg PO BID Qty: 60 RF: 3 oxcarbazepine 600 mg tablet 600 mg PO BID Qty: 60 RF: 3 phenobarbital 32.4 mg tablet 32.4 mg PO BID Qty: 60 RF: 3 risperidone 0.25 MG tablet 0.25 mg PO DAILY RF: 0 aspirin 81 MG tablet,delayed release (DR/EC) 81 mg PO DAILY RF: 0 potassium chloride 20 MEQ tablet 20 meq PO BID RF: 0 levothyroxine 50 MCG tablet 50 mcg PO DAILY RF: 0 duloxetine 20 MG capsule,delayed release(DR/EC) 20 mg PO DAILY RF: 0 mirtazapine 7.5 mg tablet 7.5 mg PO QHS RF: 0 ropinirole 2 MG tablet 2 mg PO QHS RF: 0 methadone 10 mg tablet 10 mg PO TID RF: 0 nicotine 21 mg/24 hr patch 24 hour 1 patch TOPICAL DAILY RF: 0 latanoprost (PF) 7.5 ML drops 1 drp EACHEYE QHS RF: 0 acetaminophen 325 MG tablet 650 mg PO Q6H PRN PRN (Reason: Pain Score 1-10/Temp > 100.7 F) RF: 0 multivitamin Tablet 1 tab PO DAILY RF: 0 temazepam 30 mg Capsule 30 mg PO QHS PRN (Reason: Sleep) RF: 0 cholecalciferol (vitamin D3) 1,250 mcg (50,000 unit) capsule 1,250 mcg PO WE RF: 0 Referrals / Follow Up: Patel Veliz Chi, MD [Primary Care Provider] - In 1 Week Disposition Disposition (needs filled in before D/C Order can be placed): [facility]-Way Facility Documented by User: Dr. Silva Greene MD 10/24/20 17:32 Allergies/Procedures Done in Hospital Allergies codeine Allergy (Mild, Verified 10/20/20 12:50) HIVES Penicillins Allergy (Verified 10/20/20 12:50) Anaphylaxis Discharge Plan Admission Admit Date/Time: 10/22/20 11:27 Attending Provider: Silva Greene Primary Care Provider: Patel Veliz Chi Consulting Providers: Jr Dunlap Discharge Orders/Prescriptions Prescriptions: Continued Myrbetriq 25 mg tablet extended release 24 hr 25 mg PO BID RF: 0 omeprazole 20 mg capsule,delayed release(DR/EC) 20 mg PO DAILY RF: 0 sennosides-docusate sodium [Senexon-S] 8.6-50 mg tablet 2 tab PO BID RF: 0 calcium carbonate [Oyster Shell Calcium] 500 mg calcium (1,250 mg) tablet 500 mg PO DAILY RF: 0 fluticasone furoate-vilanterol 100-25 mcg/dose blister with device 2 puff INHALATION DAILY RF: 0 albuterol sulfate [Ventolin HFA] 90 mcg/actuation HFA aerosol inhaler 1 inh INHALATION ONCE RF: 0 brimonidine 0.15 % drops 1 drp OPHTHALMIC BID RF: 0 benztropine 2 mg tablet 2 mg PO BID Qty: 60 RF: 3 oxcarbazepine 600 mg tablet 600 mg PO BID Qty: 60 RF: 3 phenobarbital 32.4 mg tablet 32.4 mg PO BID Qty: 60 RF: 3 risperidone 0.25 MG tablet 0.25 mg PO DAILY RF: 0 aspirin 81 MG tablet,delayed release (DR/EC) 81 mg PO DAILY RF: 0 potassium chloride 20 MEQ tablet 20 meq PO BID RF: 0 levothyroxine 50 MCG tablet 50 mcg PO DAILY RF: 0 duloxetine 20 MG capsule,delayed release(DR/EC) 20 mg PO DAILY RF: 0 mirtazapine 7.5 mg tablet 7.5 mg PO QHS RF: 0 ropinirole 2 MG tablet 2 mg PO QHS RF: 0 methadone 10 mg tablet 10 mg PO TID RF: 0 nicotine 21 mg/24 hr patch 24 hour 1 patch TOPICAL DAILY RF: 0 latanoprost (PF) 7.5 ML drops 1 drp EACHEYE QHS RF: 0 acetaminophen 325 MG tablet 650 mg PO Q6H PRN PRN (Reason: Pain Score 1-10/Temp > 100.7 F) RF: 0 multivitamin Tablet 1 tab PO DAILY RF: 0 temazepam 30 mg Capsule 30 mg PO QHS PRN (Reason: Sleep) RF: 0 cholecalciferol (vitamin D3) 1,250 mcg (50,000 unit) capsule 1,250 mcg PO WE RF: 0 Referrals / Follow Up: Patel Veliz Chi, MD [Primary Care Provider] - In 1 Week Disposition Disposition (needs filled in before D/C Order can be placed): Half-Way Facility
--- NOTE | 2020-10-24 13:08 | DS.PCM_ITS ---
Documented by User: Maryuri Medeiros NP, [employer] OPER[employer] 10/24/20 13:17 Providers Date of Admission: 10/22/20 Primary Care Physician: Dr. Patel Veliz MD Consultations 10/22/20 09:45 Consult: General Surgery Routine Consulting Provider: Jr Dunlap Reason for Consult: constipation EMERGENT Consult: No MD Notified: Yes Date Notified:: 10/22/20 Time Notified: 09:45 Method of Notification: Answering Service Reason For Visit: FALL, ABDOMINAL PAIN, FOOT PAIN, DEBITLIY Diagnosis Discharge Diagnosis (1) Constipation: Status: Acute Code(s): K59.00 - Constipation, unspecified Qualifiers: Constipation type: unspecified constipation type Qualified Code(s): K59.00 - Constipation, unspecified (2) Debility: Status: Acute Code(s): R53.81 - Other malaise Medications at Discharge Home Medications aspirin 81 mg PO DAILY 01/07/19 duloxetine 20 mg PO DAILY 01/07/19 levothyroxine 50 mcg PO DAILY 01/07/19 potassium chloride 20 meq PO BID 01/07/19 risperidone 0.25 mg PO DAILY 01/07/19 mirtazapine 7.5 mg tablet 7.5 mg PO QHS tablet 02/21/19 latanoprost (PF) 1 drp EACHEYE QHS 08/08/19 methadone 10 mg PO TID 08/08/19 nicotine 1 patch TOPICAL DAILY 08/08/19 ropinirole 2 mg PO QHS 08/08/19 acetaminophen 650 mg PO Q6H PRN PRN tablet 08/11/19 albuterol sulfate 90 mcg/actuation aerosol inhaler 1 inh INHALATION ONCE 05/13/20 calcium carbonate 500 mg calcium (1,250 mg) tablet 500 mg PO DAILY 05/13/20 fluticasone furoate 100 mcg-vilanterol 25 mcg/dose inhalation powder 2 puff INHALATION DAILY 05/13/20 mirabegron 25 mg tablet,extended release 24 hr 25 mg PO BID tab 05/13/20 omeprazole 20 mg capsule,delayed release 20 mg PO DAILY cap 05/13/20 sennosides 8.6 mg-docusate sodium 50 mg tablet 2 tab PO BID 05/13/20 brimonidine 0.15 % eye drops 1 drp OPHTHALMIC BID 07/09/20 benztropine 2 mg tablet 2 mg PO BID #60 tab 10/13/20 oxcarbazepine 600 mg tablet 600 mg PO BID #60 tab 10/13/20 phenobarbital 32.4 mg tablet 32.4 mg PO BID #60 tab 10/13/20 cholecalciferol (vitamin D3) 1,250 mcg PO WE 10/20/20 multivitamin 1 tab PO DAILY 10/20/20 temazepam 30 mg PO QHS PRN 10/20/20 Hospital Course Operations None Procedures None Summary of Care Provided Minutes Spent on Discharge: 35 Hospital Course: Patient is a 70-year-old female admitted 10/20/2020 due to fall at home. 1. Debility with fall- PT/OT. Imaging negative for acute findings/fractures. SNF at discharge. 2. Abdominal pain/Constipation-General surgery consulted. CT of abdomen pelvis without acute process. Continue bowel regimen. Abdominal pain/constipation resolved. 3. Seizure history-continue home medications. 4. COPD with chronic hypoxic respiratory failure-on baseline home O2. 5. CHUY-continue PAP regimen. 6. Restless leg syndrome 7. Hypothyroidism-continue Synthroid. 8. Depression-continue home medications. 9. Degenerative disc disease 10. Stress bladder incontinence-continue home medications. 11. Tobacco dependence-encouraged cessation. Nicotine replacement patch. Physical Exam Const alert, oriented x3 and no apparent distress Orientation / Consciousness: awake, oriented to person, oriented to place and oriented to time HEENT normocephalic and moist oral mucous membranes Eyes PERRL, EOMs intact bilaterally and conjunctivae normal Neck no lymphadenopathy Resp normal respiratory effort and clear to auscultation bilaterally Cardio regular rate, regular rhythm and no murmurs Peripheral Pulses: pulses 2+ throughout GI normal to inspection, nondistended, normoactive bowel sounds, non-tender and non-distended Extremity normal to inspection Skin no rashes or lesions noted Lesions: no lesions Rashes: no rashes Trauma: no lacerations or abrasions Neuro oriented x3 Sensorium / Orientation: awake and alert Psych affect normal Patient seen and examined prior to discharge. Physical assessment as noted above. Patient is stable for discharge with follow up recommendations as noted above. This patient was seen by MAURICIO Brown under the supervision of Dr. Greene. ABG / Lab / Microbiology Data Result Diagrams: 10/23/20 05:31 10/24/20 07:26 Laboratory: Laboratory Results - last 24 hr 10/24/20 10/24/20 06:40 07:26 Sodium Cancelled 136 Potassium Cancelled 3.4 L Chloride Cancelled 103 Carbon Dioxide Cancelled 26.0 Anion Gap Cancelled 7 BUN Cancelled 5 L Creatinine Cancelled 0.36 L Estim Creat Clear Calc Cancelled 46.43 Est GFR (MDRD) Af Amer Cancelled 229 Est GFR (MDRD) Non-Af Cancelled 189 BUN/Creatinine Ratio Cancelled 13.9 Glucose Cancelled 99 Calcium Cancelled 8.3 L Microbiology: Microbiology 10/22/20 08:10 Vomitus Gastric Occult Blood - Final Meaningful Use Info Meaningful Use Diagnoses (Choose all that apply): None applicable Discharge Plan Admission Admit Date/Time: 10/22/20 11:27 Attending Provider: Silva Greene Primary Care Provider: Patel Veliz Chi Consulting Providers: Jr Dunlap Discharge Orders/Prescriptions Prescriptions: Continued Myrbetriq 25 mg tablet extended release 24 hr 25 mg PO BID RF: 0 omeprazole 20 mg capsule,delayed release(DR/EC) 20 mg PO DAILY RF: 0 sennosides-docusate sodium [Senexon-S] 8.6-50 mg tablet 2 tab PO BID RF: 0 calcium carbonate [Oyster Shell Calcium] 500 mg calcium (1,250 mg) tablet 500 mg PO DAILY RF: 0 fluticasone furoate-vilanterol 100-25 mcg/dose blister with device 2 puff INHALATION DAILY RF: 0 albuterol sulfate [Ventolin HFA] 90 mcg/actuation HFA aerosol inhaler 1 inh INHALATION ONCE RF: 0 brimonidine 0.15 % drops 1 drp OPHTHALMIC BID RF: 0 benztropine 2 mg tablet 2 mg PO BID Qty: 60 RF: 3 oxcarbazepine 600 mg tablet 600 mg PO BID Qty: 60 RF: 3 phenobarbital 32.4 mg tablet 32.4 mg PO BID Qty: 60 RF: 3 risperidone 0.25 MG tablet 0.25 mg PO DAILY RF: 0 aspirin 81 MG tablet,delayed release (DR/EC) 81 mg PO DAILY RF: 0 potassium chloride 20 MEQ tablet 20 meq PO BID RF: 0 levothyroxine 50 MCG tablet 50 mcg PO DAILY RF: 0 duloxetine 20 MG capsule,delayed release(DR/EC) 20 mg PO DAILY RF: 0 mirtazapine 7.5 mg tablet 7.5 mg PO QHS RF: 0 ropinirole 2 MG tablet 2 mg PO QHS RF: 0 methadone 10 mg tablet 10 mg PO TID RF: 0 nicotine 21 mg/24 hr patch 24 hour 1 patch TOPICAL DAILY RF: 0 latanoprost (PF) 7.5 ML drops 1 drp EACHEYE QHS RF: 0 acetaminophen 325 MG tablet 650 mg PO Q6H PRN PRN (Reason: Pain Score 1-10/Temp > 100.7 F) RF: 0 multivitamin Tablet 1 tab PO DAILY RF: 0 temazepam 30 mg Capsule 30 mg PO QHS PRN (Reason: Sleep) RF: 0 cholecalciferol (vitamin D3) 1,250 mcg (50,000 unit) capsule 1,250 mcg PO WE RF: 0 Referrals / Follow Up: Patel Veliz Chi, MD [Primary Care Provider] - In 1 Week Disposition Disposition (needs filled in before D/C Order can be placed): Nursing Home Facility Documented by User: Dr. Silva Greene MD 10/24/20 17:30 Providers Date of Admission: 10/22/20 Reason For Visit: FALL, ABDOMINAL PAIN, FOOT PAIN, DEBITLIY Medications at Discharge Home Medications aspirin 81 mg PO DAILY 01/07/19 duloxetine 20 mg PO DAILY 01/07/19 levothyroxine 50 mcg PO DAILY 01/07/19 potassium chloride 20 meq PO BID 01/07/19 risperidone 0.25 mg PO DAILY 01/07/19 mirtazapine 7.5 mg tablet 7.5 mg PO QHS tablet 02/21/19 latanoprost (PF) 1 drp EACHEYE QHS 08/08/19 methadone 10 mg PO TID 08/08/19 nicotine 1 patch TOPICAL DAILY 08/08/19 ropinirole 2 mg PO QHS 08/08/19 acetaminophen 650 mg PO Q6H PRN PRN tablet 08/11/19 albuterol sulfate 90 mcg/actuation aerosol inhaler 1 inh INHALATION ONCE 05/13/20 calcium carbonate 500 mg calcium (1,250 mg) tablet 500 mg PO DAILY 05/13/20 fluticasone furoate 100 mcg-vilanterol 25 mcg/dose inhalation powder 2 puff INHALATION DAILY 05/13/20 mirabegron 25 mg tablet,extended release 24 hr 25 mg PO BID tab 05/13/20 omeprazole 20 mg capsule,delayed release 20 mg PO DAILY cap 05/13/20 sennosides 8.6 mg-docusate sodium 50 mg tablet 2 tab PO BID 05/13/20 brimonidine 0.15 % eye drops 1 drp OPHTHALMIC BID 07/09/20 benztropine 2 mg tablet 2 mg PO BID #60 tab 10/13/20 oxcarbazepine 600 mg tablet 600 mg PO BID #60 tab 10/13/20 phenobarbital 32.4 mg tablet 32.4 mg PO BID #60 tab 10/13/20 cholecalciferol (vitamin D3) 1,250 mcg PO WE 10/20/20 multivitamin 1 tab PO DAILY 10/20/20 temazepam 30 mg PO QHS PRN 10/20/20 ABG / Lab / Microbiology Data Result Diagrams: 10/23/20 05:31 10/24/20 07:26 Discharge Plan Admission Admit Date/Time: 10/22/20 11:27 Attending Provider: Silva Greene Primary Care Provider: Patel Veliz Chi Consulting Providers: Jr Dunlap Discharge Orders/Prescriptions Prescriptions: Continued Myrbetriq 25 mg tablet extended release 24 hr 25 mg PO BID RF: 0 omeprazole 20 mg capsule,delayed release(DR/EC) 20 mg PO DAILY RF: 0 sennosides-docusate sodium [Senexon-S] 8.6-50 mg tablet 2 tab PO BID RF: 0 calcium carbonate [Oyster Shell Calcium] 500 mg calcium (1,250 mg) tablet 500 mg PO DAILY RF: 0 fluticasone furoate-vilanterol 100-25 mcg/dose blister with device 2 puff INHALATION DAILY RF: 0 albuterol sulfate [Ventolin HFA] 90 mcg/actuation HFA aerosol inhaler 1 inh INHALATION ONCE RF: 0 brimonidine 0.15 % drops 1 drp OPHTHALMIC BID RF: 0 benztropine 2 mg tablet 2 mg PO BID Qty: 60 RF: 3 oxcarbazepine 600 mg tablet 600 mg PO BID Qty: 60 RF: 3 phenobarbital 32.4 mg tablet 32.4 mg PO BID Qty: 60 RF: 3 risperidone 0.25 MG tablet 0.25 mg PO DAILY RF: 0 aspirin 81 MG tablet,delayed release (DR/EC) 81 mg PO DAILY RF: 0 potassium chloride 20 MEQ tablet 20 meq PO BID RF: 0 levothyroxine 50 MCG tablet 50 mcg PO DAILY RF: 0 duloxetine 20 MG capsule,delayed release(DR/EC) 20 mg PO DAILY RF: 0 mirtazapine 7.5 mg tablet 7.5 mg PO QHS RF: 0 ropinirole 2 MG tablet 2 mg PO QHS RF: 0 methadone 10 mg tablet 10 mg PO TID RF: 0 nicotine 21 mg/24 hr patch 24 hour 1 patch TOPICAL DAILY RF: 0 latanoprost (PF) 7.5 ML drops 1 drp EACHEYE QHS RF: 0 acetaminophen 325 MG tablet 650 mg PO Q6H PRN PRN (Reason: Pain Score 1-10/Temp > 100.7 F) RF: 0 multivitamin Tablet 1 tab PO DAILY RF: 0 temazepam 30 mg Capsule 30 mg PO QHS PRN (Reason: Sleep) RF: 0 cholecalciferol (vitamin D3) 1,250 mcg (50,000 unit) capsule 1,250 mcg PO WE RF: 0 Referrals / Follow Up: Patel Veliz Chi, MD [Primary Care Provider] - In 1 Week Disposition Disposition (needs filled in before D/C Order can be placed): Nursing Home Facility Addendum Addendum: Patient seen by Maryuri MARTÍNEZ under my supervision Patient is a 70-year-old female who was admitted through the ED on 10/20/2020 after she had a fall at her assisted living facility. She said her knee gave out and she fell. She also complained of anterior abdominal pain as she landed on her belly. Vitals in the ED was stable and CT of the abdomen and pelvis without contrast was negative. Chest x-ray showed no acute cardiopulmonary findings and x-ray of the right foot and right ankle showed mild soft tissue swelling with no fractures. She was admitted to be managed for debility due to mechanical fall. PT OT was consulted. Hospital stay was complicated by vomiting and abdominal pain. KUB done was negative for any distal obstruction and patient was found to have copious amount of stool. She had an enema given which resulted in passage of significant bowel movements and vomiting and abdominal pain was stopped. Patient was called as needing SNF. [facility]. She is follow-up with her primary care doctor in 1 to 2 weeks. Patient was seen and examined prior to discharge. She had no complaints. Review of systems otherwise negative. Labs and vitals reviewed. Her medication reviewed and reconciled. O/E: alert, oriented x3 and no apparent distress HEENT head/scalp atraumatic Head and Scalp: normocephalic Eyes EOMs intact bilaterally Neck no lymphadenopathy, supple and no JVD Resp has chronic bilateral wheezing in all lung [place].. on 2L of oxygen which is chronic Cardio regular rate, regular rhythm, no murmurs and no JVD GI normal to inspection, nondistended, normoactive bowel sounds, soft to palpation and non-tender Extremity full ROM Skin no rashes or lesions noted and no wounds Neuro CN's II-XII intact bilaterally Psych affect normal Plan is for discharge to SNF today. Rest as per Maryuri Medeiros LUMBER P[employer]ER OPERATOR-C's note, which I have reviewed and endorsed Visit Charges Inpatient E&M: 37749 Disch Hosp
--- NOTE | 2020-10-24 14:24 | CASEMGMT ---
Social Work Note GRAHAM received call from Yana at [facility] stating pre-cert is still pending but pt can still admit today under pt's Medicaid. GRAHAM informed Yana that pt is medically ready for discharge today. Yana states pt can admit today, will need COVID test. GRAHAM updated PA. SW in to speak with pt. SW updated pt that she will be discharged to [facility] today. Pt states she called her son Yaakov and updated him and asked him to bring in her walker. RN updated this worker that pt will need speech eval completed before pt can discharge. RN states pt can transport via cot. SW will arrange transportation once speech evaluates pt. Plan: Discharge to [facility] today Cheyanne Cee COURT ORDERLY, FIREFIGHTER TYPE ONE
--- NOTE | 2020-10-24 15:31 | NURSING ---
Report called to nurse Norma.
--- NOTE | 2020-10-24 17:20 | CASEMGMT ---
Addendum entered by Cheyanne Cee 10/24/20 18:24: GRAHAM completed [facility]valescent [facility] in [facility]. Original in SNF folder and copy on pt's chart. GRAHAM placed a call to pt's CM Beata Chen at [facility] and left message updating her on pt's discharge to [facility]. SW faxed discharge paperwork to [facility]. Original Note: Social Work Note Speech has evaluated pt, pt can discharge to [facility]. GRAHAM faxed completed discharge paperwork to [facility] including transfer to extended care facility, signed medication list, any scripts, COVID test and COVID tool. Original in SNF folder and copy on pt's chart. SW accessed trip assist and earliest Physician's can transport pt is 8:00pm. Transportation form completed and placed on SNF folder and copy on pt's chart. SW updated RN on transportation time. SW in to speak with pt and updated her on transportation time. Pt states understanding. Pt gave this worker permission to call her son Yaakov to update. SW placed a call to pt's son Yaakov and updated him on discharge to [facility] today. GRAHAM placed a call to Yana at [facility] and updated her on transportation time. Plan: [facility] skilled today with Physician's transporting pt via cot at 8:00pm Cheyanne Cee MSW, FENCE POST CUTTER
[2020-10-24] MEDS: Latanoprost 0.005% 1 Bottle 1 DRP OPHTHALMIC (20:41)
== END 2020-10-24 20:58 | DRG 948 ==
LOC: ED 17:29 → MS3 17:56
PROVIDERS: Hospitalist; Physician Assistant; Admitting Provider Hospitalist; Emergency Provider Emergency Medicine; PCP Family Medicine Geriatric Medicine; Visit Provider Student in an Organized Health Care Education/Training Program
DX: R53.81 Other malaise (principal); J96.11 Chronic respiratory failure with hypoxia; S93.601A Unspecified sprain of right foot, initial encounter; S30.1XXA Contusion of abdominal wall, initial encounter; W18.30XA Fall on same level, unspecified, initial encounter; Y92.009 Unspecified place in unspecified non-institutional (private) residence as the place of occurrence of the external cause; K59.09 Other constipation; G40.409 Other generalized epilepsy and epileptic syndromes, not intractable, without status epilepticus; J44.9 Chronic obstructive pulmonary disease, unspecified; G47.33 Obstructive sleep apnea (adult) (pediatric); G25.81 Restless legs syndrome; E03.9 Hypothyroidism, unspecified; N39.3 Stress incontinence (female) (male); M51.36 Other intervertebral disc degeneration, lumbar region; F32.9 Major depressive disorder, single episode, unspecified; F17.210 Nicotine dependence, cigarettes, uncomplicated; Z66 Do not resuscitate; Z90.49 Acquired absence of other specified parts of digestive tract; Z79.82 Long term (current) use of aspirin; Z79.890 Hormone replacement therapy; Z79.899 Other long term (current) drug therapy; Z99.81 Dependence on supplemental oxygen
CPT/HCPCS: 36415; 71045; 73610; 73630; 74019; 74176; 74177; 80048; 82271; 85025; 85610; 85730; 87426; 92610; 93005; 94640; 97110; 97162; 97166; 97530; 99251; 99285; J7030; Q9967; A4216; G0463; J2405

== ENCOUNTER 2020-11-22 16:51 | Observation (INO) | payer MEDICARE, MEDICAID, SELFPAY ==
[2020-10-20 18:49] VITALS: BMI 31.2
[2020-11-22 16:56] VITALS: BP 130/67; PULSE 93; RESP 18; TEMP 37; O2SAT 95; BMI 32.1
--- NOTE | 2020-11-22 17:10 | ED.VIS.FEGU ---
HPI HPI - Female History of Present Illness Chief Complaint: Vag Bleeding Informant: patient and family Associated Symptoms Associated Symptoms: Negative for Dysuria and Frequency PFSH PFSH Medical History Anxiety COPD (chronic obstructive pulmonary disease) Degenerative disc disease, lumbar Depression Gastritis Hypertension Insomnia Obstructive sleep apnea On home oxygen therapy Pain, chronic Physical debility Restless leg syndrome Seizure disorder Seizures Sleep apnea Smoker Smokes with greater than 40 pack year history Home Medications aspirin 81 mg PO DAILY 01/07/19 [History Last Taken 10/20/20] duloxetine 20 mg PO DAILY 01/07/19 [History Last Taken 10/20/20] levothyroxine 50 mcg PO DAILY 01/07/19 [History Last Taken 10/20/20] potassium chloride 20 meq PO BID 01/07/19 [History Last Taken 10/20/20] risperidone 0.25 mg PO DAILY 01/07/19 [History Last Taken 10/19/20] mirtazapine 7.5 mg tablet 7.5 mg PO QHS tablet 02/21/19 [History Last Taken 10/19/20] latanoprost (PF) 1 drp EACHEYE QHS 08/08/19 [History Last Taken 10/19/20] nicotine 1 patch TOPICAL DAILY 08/08/19 [History Last Taken 10/20/20] ropinirole 2 mg PO QHS 08/08/19 [History Last Taken 10/19/20] acetaminophen 650 mg PO Q6H PRN PRN tablet 08/11/19 [Rx Last Taken Unknown] albuterol sulfate 90 mcg/actuation aerosol inhaler 1 inh INHALATION ONCE 05/13/20 [History Last Taken 3 Days Ago ~10/17/20] calcium carbonate 500 mg calcium (1,250 mg) tablet 500 mg PO DAILY 05/13/20 [History Last Taken 10/20/20] fluticasone furoate 100 mcg-vilanterol 25 mcg/dose inhalation powder 2 puff INHALATION DAILY 05/13/20 [History Last Taken 10/20/20] mirabegron 25 mg tablet,extended release 24 hr 25 mg PO BID tab 05/13/20 [History Last Taken 10/20/20] omeprazole 20 mg capsule,delayed release 20 mg PO DAILY cap 05/13/20 [History Last Taken 10/20/20] sennosides 8.6 mg-docusate sodium 50 mg tablet 2 tab PO BID 05/13/20 [History Last Taken 10/20/20] brimonidine 0.15 % eye drops 1 drp OPHTHALMIC BID 07/09/20 [History Last Taken 10/20/20] benztropine 2 mg tablet 2 mg PO BID #60 tab 10/13/20 [Rx Last Taken 10/20/20] oxcarbazepine 600 mg tablet 600 mg PO BID #60 tab 10/13/20 [Rx Last Taken 10/20/20] phenobarbital 32.4 mg tablet 32.4 mg PO BID #60 tab 10/13/20 [Rx Last Taken 10/20/20] cholecalciferol (vitamin D3) 1,250 mcg PO WE 10/20/20 [History Last Taken 10/15/20] multivitamin 1 tab PO DAILY 10/20/20 [History Last Taken 10/20/20] temazepam 30 mg PO QHS PRN 10/20/20 [History Last Taken 10/19/20] methadone 10 mg PO TID 5 Days #15 tab 10/25/20 [Rx Last Taken Unknown] Allergy/AdvReac Type Severity Reaction Status Date / Time codeine Allergy Mild HIVES Verified 11/22/20 16:58 Penicillins Allergy Anaphylaxis Verified 11/22/20 16:58 Family History Mother Diabetes Heart disease Hypertension CAD (coronary artery disease) CVA (cerebral vascular accident) Thyroid disorder Father Colon cancer Surgical History History of bilateral carpal tunnel release History of bilateral cataract extraction History of blepharoplasty History of cystoscopy History of esophagogastroduodenoscopy (EGD) (~03/07/19) History of right hip replacement History of right salpingo-oophorectomy S/P appendectomy S/P laparoscopic cholecystectomy Status post ORIF of fracture of ankle Social History Smoking Status: Current every day smoker tobacco type: cigarettes Tobacco: How many years used: 50 alcohol intake: never substance use type: does not use EXAM Physical Exam Const Vital Signs: 11/22/20 16:56 Temperature 98.6 F Temperature Source Oral Pulse Rate 93 Respiratory Rate 18 Blood Pressure 130/67 H Blood Pressure Mean 88 Pulse Ox 95 Oxygen Delivery Method Room Air Discharge Plan Triage Chief Complaint: Vag Bleeding ED Provider: Mainor Melendez Dx/Rx/DC Orders Prescriptions: No Action Myrbetriq 25 mg tablet extended release 24 hr 25 mg PO BID RF: 0 omeprazole 20 mg capsule,delayed release(DR/EC) 20 mg PO DAILY RF: 0 sennosides-docusate sodium [Senexon-S] 8.6-50 mg tablet 2 tab PO BID RF: 0 calcium carbonate [Oyster Shell Calcium] 500 mg calcium (1,250 mg) tablet 500 mg PO DAILY RF: 0 fluticasone furoate-vilanterol 100-25 mcg/dose blister with device 2 puff INHALATION DAILY RF: 0 albuterol sulfate [Ventolin HFA] 90 mcg/actuation HFA aerosol inhaler 1 inh INHALATION ONCE RF: 0 brimonidine 0.15 % drops 1 drp OPHTHALMIC BID RF: 0 benztropine 2 mg tablet 2 mg PO BID Qty: 60 RF: 3 oxcarbazepine 600 mg tablet 600 mg PO BID Qty: 60 RF: 3 phenobarbital 32.4 mg tablet 32.4 mg PO BID Qty: 60 RF: 3 risperidone 0.25 MG tablet 0.25 mg PO DAILY RF: 0 aspirin 81 MG tablet,delayed release (DR/EC) 81 mg PO DAILY RF: 0 potassium chloride 20 MEQ tablet 20 meq PO BID RF: 0 levothyroxine 50 MCG tablet 50 mcg PO DAILY RF: 0 duloxetine 20 MG capsule,delayed release(DR/EC) 20 mg PO DAILY RF: 0 mirtazapine 7.5 mg tablet 7.5 mg PO QHS RF: 0 ropinirole 2 MG tablet 2 mg PO QHS RF: 0 nicotine 21 mg/24 hr patch 24 hour 1 patch TOPICAL DAILY RF: 0 latanoprost (PF) 7.5 ML drops 1 drp EACHEYE QHS RF: 0 acetaminophen 325 MG tablet 650 mg PO Q6H PRN PRN (Reason: Pain Score 1-10/Temp > 100.7 F) RF: 0 multivitamin Tablet 1 tab PO DAILY RF: 0 temazepam 30 mg Capsule 30 mg PO QHS PRN (Reason: Sleep) RF: 0 cholecalciferol (vitamin D3) 1,250 mcg (50,000 unit) capsule 1,250 mcg PO WE RF: 0 methadone 10 mg tablet 10 mg PO TID 5 Days Qty: 15 RF: 0 Primary Care Provider: Patel Veliz Chi
--- NOTE | 2020-11-22 17:15 | ED.VIS.GI ---
HPI HPI - GI History of Present Illness Chief Complaint: GI Bleed Detail of Chief Complaint: Patient 5 possible vaginal bleed this appears to be GI bleed Informant: patient and family Diarrhea/Melena/Hematochezia GI Symptom: Positive for Hematochezia; Negative for Diarrhea and Melena Onset: Today Associated Symptoms Associated Symptoms: Negative for Dysuria and Frequency Narrative Narrative: 70-year-old female was just in a long term and discharged today from the long term back home. At home she is already had 1 fall and she had a significant amount of blood in the toilet which initially she thought was vaginal bleeding but appears to be rectal bleeding. She does have a history of external hemorrhoids but no significant history of GI bleed. She denies being on any blood thinners. Son is in the room and states when he went to help his mother at home there was a significant amount of bright red blood in the toilet but no clots. Prior similar symptoms: No Recent Illness/Hospitalization: No PFSH PFSH Medical History Anxiety COPD (chronic obstructive pulmonary disease) Degenerative disc disease, lumbar Depression Gastritis Hypertension Insomnia Obstructive sleep apnea On home oxygen therapy Pain, chronic Physical debility Restless leg syndrome Seizure disorder Seizures Sleep apnea Smoker Smokes with greater than 40 pack year history Home Medications aspirin 81 mg PO DAILY 01/07/19 [History Last Taken 10/20/20] duloxetine 20 mg PO DAILY 01/07/19 [History Last Taken 10/20/20] levothyroxine 50 mcg PO DAILY 01/07/19 [History Last Taken 10/20/20] potassium chloride 20 meq PO BID 01/07/19 [History Last Taken 10/20/20] risperidone 0.25 mg PO DAILY 01/07/19 [History Last Taken 10/19/20] mirtazapine 7.5 mg tablet 7.5 mg PO QHS tablet 02/21/19 [History Last Taken 10/19/20] latanoprost (PF) 1 drp EACHEYE QHS 08/08/19 [History Last Taken 10/19/20] nicotine 1 patch TOPICAL DAILY 08/08/19 [History Last Taken 10/20/20] ropinirole 2 mg PO QHS 08/08/19 [History Last Taken 10/19/20] acetaminophen 650 mg PO Q6H PRN PRN tablet 08/11/19 [Rx Last Taken Unknown] albuterol sulfate 90 mcg/actuation aerosol inhaler 1 inh INHALATION ONCE 05/13/20 [History Last Taken 3 Days Ago ~10/17/20] calcium carbonate 500 mg calcium (1,250 mg) tablet 500 mg PO DAILY 05/13/20 [History Last Taken 10/20/20] fluticasone furoate 100 mcg-vilanterol 25 mcg/dose inhalation powder 2 puff INHALATION DAILY 05/13/20 [History Last Taken 10/20/20] mirabegron 25 mg tablet,extended release 24 hr 25 mg PO BID tab 05/13/20 [History Last Taken 10/20/20] omeprazole 20 mg capsule,delayed release 20 mg PO DAILY cap 05/13/20 [History Last Taken 10/20/20] sennosides 8.6 mg-docusate sodium 50 mg tablet 2 tab PO BID 05/13/20 [History Last Taken 10/20/20] brimonidine 0.15 % eye drops 1 drp OPHTHALMIC BID 07/09/20 [History Last Taken 10/20/20] benztropine 2 mg tablet 2 mg PO BID #60 tab 10/13/20 [Rx Last Taken 10/20/20] oxcarbazepine 600 mg tablet 600 mg PO BID #60 tab 10/13/20 [Rx Last Taken 10/20/20] phenobarbital 32.4 mg tablet 32.4 mg PO BID #60 tab 10/13/20 [Rx Last Taken 10/20/20] cholecalciferol (vitamin D3) 1,250 mcg PO WE 10/20/20 [History Last Taken 10/15/20] multivitamin 1 tab PO DAILY 10/20/20 [History Last Taken 10/20/20] temazepam 30 mg PO QHS PRN 10/20/20 [History Last Taken 10/19/20] methadone 10 mg PO TID 5 Days #15 tab 10/25/20 [Rx Last Taken Unknown] Allergy/AdvReac Type Severity Reaction Status Date / Time codeine Allergy Mild HIVES Verified 11/22/20 16:58 Penicillins Allergy Anaphylaxis Verified 11/22/20 16:58 Family History Mother Diabetes Heart disease Hypertension CAD (coronary artery disease) CVA (cerebral vascular accident) Thyroid disorder Father Colon cancer Surgical History History of bilateral carpal tunnel release History of bilateral cataract extraction History of blepharoplasty History of cystoscopy History of esophagogastroduodenoscopy (EGD) (~03/07/19) History of right hip replacement History of right salpingo-oophorectomy S/P appendectomy S/P laparoscopic cholecystectomy Status post ORIF of fracture of ankle Social History Smoking Status: Current every day smoker tobacco type: cigarettes Tobacco: How many years used: 50 alcohol intake: never substance use type: does not use ROS ROS ED ROS Narrative Patient denies recent illness. Review of Systems ROS Unobtainable: Denies due to encephalopathy Constitutional Constitutional ED: Denies chills or fever(s) ENT ENT ED: Denies ear pain or sore throat Cardiovascular Cardiovascular: Denies chest pain Respiratory/Chest Respiratory/Chest: Denies dyspnea Gastrointestinal Gastrointestinal: Denies abdominal pain, diarrhea, melena, nausea or vomiting Genitourinary Genitourinary ED: Denies dysuria Musculoskeletal Musculoskeletal: Denies myalgias Integumentary Denies rash Neurologic Neurologic: Denies headache(s) Psychiatric Psychiatric: Denies depression Endocrine Endocrinology: Denies polyuria Hematologic/Lymphatic Hematologic/Lymphatic: Denies easy bruising Allergic/Immunologic Allergic/Immunologic ED: Denies urticaria EXAM Physical Exam Narrative Exam Narrative: Older female no acute distress. Vital signs stable afebrile. Initial blood pressure 130/67. Patient does not look septic or toxic. HEENT exam unremarkable. Moist weeks membranes. Lungs are clear equal symmetrical. Heart regular rhythm rate about 90. Abdomen soft nontender normal bowel sounds no peritoneal signs. External exam there is no obvious blood on external vaginal area. She does have multiple large hemorrhoids in her perianal area. There is a small amount of blood there. On rectal exam there is a small amount of blood but no black stool and very limited stool. This was done with her son present in the room. Moving all 4 extremities. No edema. No bruising. Neurologically she is awake and alert. Const Vital Signs: 11/22/20 16:56 Temperature 98.6 F Temperature Source Oral Pulse Rate 93 Respiratory Rate 18 Blood Pressure 130/67 H Blood Pressure Mean 88 Pulse Ox 95 Oxygen Delivery Method Room Air HEENT Reports moist mucous membranes normocephalic and atraumatic; Negative for tenderness Eyes PERRL and EOMs intact bilaterally Neck no lymphadenopathy, supple and no JVD Resp normal respiratory effort and clear to auscultation bilaterally GI non-tender, non-distended and no masses GI Narrative: External hemorrhoids with bright red blood and a small amount of blood on rectal exam no melena. Limited stool. Auscultation: normoactive bowel sounds Palpation: soft; Negative for tender, guarding or rigid Back/Spine no CVA tenderness General Back: Negative for CVA tenderness Extremity full ROM General Extremety ED: Negative for edema or tenderness General Extremity: Negative for edema Neuro Sensorium / Orientation: alert, oriented to person, oriented to place and oriented to time Psych mental status grossly normal Skin Rashes: no rashes MDM MDM MDM Narrative Medical decision making narrative: Patient with bleeding in the toilet appears to be GI bleed either external hemorrhoids or lower GI bleed. Labs are being obtained. Type and screen obtained. Repeat exam patient is doing well at 6:10 PM. She and I and her son discussed treatment plan they are not comfortable with her being discharged home with outpatient follow-up. He feels she is too weak to go home. I spoke to the hospitalist patient will be admitted have serial blood counts obtained and will eventually most likely be ready admitted to the extended care facility. Lab Data Attestation: I reviewed the patient's lab results. Lab results narrative: Patient's CBC shows white count 8. Hemoglobin 11.4 but is actually better than the prior 10.5. Normal platelets. Her PT/INR normal. Chemistries unremarkable normal BUN and creatinine. Labs: Laboratory Results - last 24 hr 11/22/20 11/22/20 11/22/20 17:30 17:30 17:30 WBC 8.7 RBC 3.89 L Hgb 11.4 L Hct 36.0 L MCV 92.5 MCH 29.3 MCHC 31.7 L RDW Std Deviation 46.5 H RDW Coeff of Jordin 13.5 Plt Count 352 MPV 8.4 PT 14.0 INR 1.1 Sodium 134 L Potassium 4.5 Chloride 99 Carbon Dioxide 27.0 Anion Gap 8 BUN 14 Creatinine 0.96 Estim Creat Clear Calc 48.37 Est GFR (MDRD) Af Amer 73 Est GFR (MDRD) Non-Af 61 BUN/Creatinine Ratio 14.5 Glucose 104 Calcium 8.6 Blood Type Antibody Screen 11/22/20 17:30 WBC RBC Hgb Hct MCV MCH MCHC RDW Std Deviation RDW Coeff of Jordin Plt Count MPV PT INR Sodium Potassium Chloride Carbon Dioxide Anion Gap BUN Creatinine Estim Creat Clear Calc Est GFR (MDRD) Af Amer Est GFR (MDRD) Non-Af BUN/Creatinine Ratio Glucose Calcium Blood Type A POSITIVE Antibody Screen NEGATIVE Discharge Plan Triage Chief Complaint: GI Bleed ED Provider: Mainor Melendez Dx/Rx/DC Orders Clinical Impression: Bleeding external hemorrhoids, Adult failure to thrive, Acute lower gastrointestinal hemorrhage Instructions: ED Hemorrhoids Prescriptions: No Action Myrbetriq 25 mg tablet extended release 24 hr 25 mg PO BID RF: 0 omeprazole 20 mg capsule,delayed release(DR/EC) 20 mg PO DAILY RF: 0 sennosides-docusate sodium [Senexon-S] 8.6-50 mg tablet 2 tab PO BID RF: 0 calcium carbonate [Oyster Shell Calcium] 500 mg calcium (1,250 mg) tablet 500 mg PO DAILY RF: 0 fluticasone furoate-vilanterol 100-25 mcg/dose blister with device 2 puff INHALATION DAILY RF: 0 albuterol sulfate [Ventolin HFA] 90 mcg/actuation HFA aerosol inhaler 1 inh INHALATION ONCE RF: 0 brimonidine 0.15 % drops 1 drp OPHTHALMIC BID RF: 0 benztropine 2 mg tablet 2 mg PO BID Qty: 60 RF: 3 oxcarbazepine 600 mg tablet 600 mg PO BID Qty: 60 RF: 3 phenobarbital 32.4 mg tablet 32.4 mg PO BID Qty: 60 RF: 3 risperidone 0.25 MG tablet 0.25 mg PO DAILY RF: 0 aspirin 81 MG tablet,delayed release (DR/EC) 81 mg PO DAILY RF: 0 potassium chloride 20 MEQ tablet 20 meq PO BID RF: 0 levothyroxine 50 MCG tablet 50 mcg PO DAILY RF: 0 duloxetine 20 MG capsule,delayed release(DR/EC) 20 mg PO DAILY RF: 0 mirtazapine 7.5 mg tablet 7.5 mg PO QHS RF: 0 ropinirole 2 MG tablet 2 mg PO QHS RF: 0 nicotine 21 mg/24 hr patch 24 hour 1 patch TOPICAL DAILY RF: 0 latanoprost (PF) 7.5 ML drops 1 drp EACHEYE QHS RF: 0 acetaminophen 325 MG tablet 650 mg PO Q6H PRN PRN (Reason: Pain Score 1-10/Temp > 100.7 F) RF: 0 multivitamin Tablet 1 tab PO DAILY RF: 0 temazepam 30 mg Capsule 30 mg PO QHS PRN (Reason: Sleep) RF: 0 cholecalciferol (vitamin D3) 1,250 mcg (50,000 unit) capsule 1,250 mcg PO WE RF: 0 methadone 10 mg tablet 10 mg PO TID 5 Days Qty: 15 RF: 0 Primary Care Provider: Patel Veliz Chi Referrals: Patel Veliz Chi, MD [Primary Care Provider] - Laina Potter MD [STAFF PHYSICIAN] - As soon as possible Activity Restrictions/Additional Instructions: Bleeding appears to be coming from external hemorrhoids. Use Preparation H at least twice daily. Warm soaks. Call and follow-up with Dr. Lis decker of general surgery to have your hemorrhoids addressed. Return if bleeding is a lot worse. Disposition Disposition: Home, self care
[2020-11-22 17:39] LABS: Hemoglobin 11.4 g/dL (12.0-15.0); Mean Corp Hgb Conc 31.7 g/dL (32-36); Mean Corpuscular Hgb 29.3 pg (27.0-32.0); Mean Corpuscular Volume 92.5 fL (81-99); Mean Platelet Vol. 8.4 fl (6.2-12.0); Platelet Count 352 K/mm3 (150-450); RBC Distribution Width CV 13.5 % (11.6-14.6); RBC Distribution Width SD 46.5 fl (35.1-43.9); Red Blood Count 3.89 M/mm3 (4.2-5.4); White Blood Count 8.7 K/mm3 (4.4-11.0)
[2020-11-22 17:48] LABS: International Normalized Ratio 1.1
[2020-11-22 17:59] LABS: Anion Gap 8 (5-15); BUN 14 mg/dL (7-18); BUN/Creat Ratio 14.5 RATIO (10-20); Calcium,Total 8.6 mg/dL (8.5-10.1); Chloride 99 mmol/L (98-107); Creatinine, Serum 0.96 mg/dL (0.55-1.02); EST Glomerular Filtration Rate 61 mL/min (>60); Est Glom Filt Rate - Afr Amer 73 mL/min (>60); Estimated Creatinine Clearance 48.37 ml/min; Glucose 104 mg/dL (74-106); Potassium 4.5 mmol/L (3.5-5.1); Sodium Level 134 mmol/L (136-145)
--- NOTE | 2020-11-22 18:26 | ED.RN ---
THIS RN IN ROOM TO DC PT. PT STATES I DON'T FEEL SAFE GOING HOME. PT SON CONFIRMS HE DOES NOT WANT PT DC'D HOME. DR VALENZUELA IN TO TALK WITH PT AND SON. PT TO BE ADMITTED TO HOSPITAL
--- NOTE | 2020-11-22 19:36 | HP.PCM.HOS_ITS ---
HPI - General General Date of Admission: 11/22/20 Date of Service: 11/22/20 Chief Complaint: Red rectal bleeding, generalized debility HPI Narrative XANDER RAMIREZ, is a 70 F who presents to the emergency room at [facility] with complaints of red rectal bleeding this afternoon and generalized weakness. She was released from a long-term facility today after undergoing outpatient rehab services for approximately a month, the family did not think that she was strong enough to go home but she had not reached her all otted days in the intermediate according to the family. Patient has multiple medical problems including spinal stenosis, COPD, essential hypertension, seizure disorder, and chronic pain syndrome. Labs obtained in the emergency room showed a normal chemistry profile, patient's hemoglobin was 11.4, the patient was not tachycardic, the emergency room physician did a rectal examination which showed no evidence of melena or blood on his finger exam. There is no signs of any vaginal bleeding. There is noted to be external hemorrhoids present on examination. I talked with the patient and her son who was in the room at the time of my examination, the son lives with the patient but he is gone from the home during the day and they do not feel safe with the patient going back home. I talked to the patient about going back to a long-term facility and she is not opposed to this and has come to the conclusion that she will need more outpatient rehab services in the intermediate. [facility], PT and OT will see the patient, I will get repeat CBC in the morning, I do not think patient needs a surgical consultation at this time. PFSH Medical History Anxiety COPD (chronic obstructive pulmonary disease) Degenerative disc disease, lumbar Depression Gastritis Hypertension Insomnia Obstructive sleep apnea On home oxygen therapy Pain, chronic Physical debility Restless leg syndrome Seizure disorder Seizures Sleep apnea Smoker Smokes with greater than 40 pack year history Home Medications aspirin 81 mg PO DAILY 01/07/19 [History Last Taken 10/20/20] duloxetine 20 mg PO DAILY 01/07/19 [History Last Taken 10/20/20] levothyroxine 50 mcg PO DAILY 01/07/19 [History Last Taken 10/20/20] potassium chloride 20 meq PO BID 01/07/19 [History Last Taken 10/20/20] risperidone 0.25 mg PO DAILY 01/07/19 [History Last Taken 10/19/20] mirtazapine 7.5 mg tablet 7.5 mg PO QHS tablet 02/21/19 [History Last Taken 10/19/20] latanoprost (PF) 1 drp EACHEYE QHS 08/08/19 [History Last Taken 10/19/20] nicotine 1 patch TOPICAL DAILY 08/08/19 [History Last Taken 10/20/20] ropinirole 2 mg PO QHS 08/08/19 [History Last Taken 10/19/20] acetaminophen 650 mg PO Q6H PRN PRN tablet 08/11/19 [Rx Last Taken Unknown] albuterol sulfate 90 mcg/actuation aerosol inhaler 1 inh INHALATION ONCE 05/13/20 [History Last Taken 3 Days Ago ~10/17/20] calcium carbonate 500 mg calcium (1,250 mg) tablet 500 mg PO DAILY 05/13/20 [History Last Taken 10/20/20] fluticasone furoate 100 mcg-vilanterol 25 mcg/dose inhalation powder 2 puff INHALATION DAILY 05/13/20 [History Last Taken 10/20/20] mirabegron 25 mg tablet,extended release 24 hr 25 mg PO BID tab 05/13/20 [History Last Taken 10/20/20] omeprazole 20 mg capsule,delayed release 20 mg PO DAILY cap 05/13/20 [History Last Taken 10/20/20] sennosides 8.6 mg-docusate sodium 50 mg tablet 2 tab PO BID 05/13/20 [History Last Taken 10/20/20] brimonidine 0.15 % eye drops 1 drp OPHTHALMIC BID 07/09/20 [History Last Taken 10/20/20] benztropine 2 mg tablet 2 mg PO BID #60 tab 10/13/20 [Rx Last Taken 10/20/20] oxcarbazepine 600 mg tablet 600 mg PO BID #60 tab 10/13/20 [Rx Last Taken 10/20/20] phenobarbital 32.4 mg tablet 32.4 mg PO BID #60 tab 10/13/20 [Rx Last Taken 10/20/20] cholecalciferol (vitamin D3) 1,250 mcg PO WE 10/20/20 [History Last Taken 10/15/20] multivitamin 1 tab PO DAILY 10/20/20 [History Last Taken 10/20/20] temazepam 30 mg PO QHS PRN 10/20/20 [History Last Taken 10/19/20] methadone 10 mg PO TID 5 Days #15 tab 10/25/20 [Rx Last Taken Unknown] Allergy/AdvReac Type Severity Reaction Status Date / Time codeine Allergy Mild HIVES Verified 11/22/20 16:58 Penicillins Allergy Anaphylaxis Verified 11/22/20 16:58 Family History Mother Diabetes Heart disease Hypertension CAD (coronary artery disease) CVA (cerebral vascular accident) Thyroid disorder Father Colon cancer Surgical History History of bilateral carpal tunnel release History of bilateral cataract extraction History of blepharoplasty History of cystoscopy History of esophagogastroduodenoscopy (EGD) (~03/07/19) History of right hip replacement History of right salpingo-oophorectomy S/P appendectomy S/P laparoscopic cholecystectomy Status post ORIF of fracture of ankle Social History Smoking Status: Current every day smoker tobacco type: cigarettes Tobacco: How many years used: 50 alcohol intake: never substance use type: does not use ROS Constitutional Constitutional: Reports fatigue and weakness; Denies anorexia, change in weight, fever(s) or night sweats Eyes Eyes: Denies blurry vision, change in vision, discharge from eye(s) or eye pain Cardiovascular Cardiovascular: Denies chest pain, claudication, dyspnea on exertion, edema, li ghtheadedness, orthopnea or palpitations Respiratory/Chest Respiratory/Chest: Denies cough, dyspnea, hemoptysis, productive cough, shortness of breath at rest or shortness of breath with exertion Gastrointestinal Gastrointestinal: Reports hematochezia and other Details: Painless red rectal bleeding today without evidence of clot ; Denies abdominal pain, constipation, diarrhea, dyspepsia, hematemesis, melena, nausea or vomiting Genitourinary Genitourinary: Denies burning urination, dysuria or hematuria Musculoskeletal Musculoskeletal: Reports back pain, joint pain and joint stiffness; Denies joint swelling, myalgias or neck pain Neurologic Neurologic: Reports other Details: Generalized lower extremity weakness worse on the right ; Denies abnormal gait, abnormal speech, dizziness, focal weakness, headache(s), loss of vision, numbness, other visual disturbances, paresthesias, syncope or tingling Psychiatric Psychiatric: Denies anxiety, cognitive impairment, depression, irritability, mood swings or suicidal ideation Endocrine Endocrinology: Denies change in body appearance, cold intolerance, excessive sweating, heat intolerance, polydipsia or polyuria Hematologic/Lymphatic Hematologic/Lymphatic: Denies none, anemia, easy bleeding, easy bruising or lymphadenopathy Allergic/Immunologic Allergic/Immunologic: Denies rhinitis, urticaria, eczemia or asthma Vital Signs Vital Signs Vital Signs: 11/22/20 16:56 Temperature 98.6 F Temperature Source Oral Pulse Rate 93 Respiratory Rate 18 Blood Pressure 130/67 H Blood Pressure Mean 88 Pulse Ox 95 Oxygen Delivery Method Room Air Weight Weight: 87.6 kg Body Mass Index (BMI) 32.1 Physical Exam Const alert, oriented x3, no apparent distress and healthy appearing General Appearance: cooperative, well kempt and well developed Orientation / Consciousness: awake, oriented to person, oriented to place and oriented to time HEENT normocephalic, head/scalp atraumatic, hearing grossly normal bilaterally and moist oral mucous membranes Eyes PERRL, EOMs intact bilaterally and conjunctivae normal Neck nuchal rigidity, supple, no JVD, thyroid normal and no carotid bruits General: trachea midline Resp normal respiratory effort, no retractions, no use of accessory muscles and clear to auscultation bilaterally Auscultation: Negative for rales, rhonchi or wheezes Cardio regular rate, regular rhythm, S1 normal heart sound, S2 normal heart sound, no murmurs, no rub, no gallops and no clicks GI normal to inspection, nondistended, normoactive bowel sounds, soft to palpation, non-tender and non-distended Extremity Extremity Narrative: Mild pretibial edema is noted in the lower legs bilaterally Skin no rashes or lesions noted, no wounds and no jaundice General Skin Exam: no breakdown Neuro oriented x3, CN's II-XII intact bilaterally, moves all extremities, no focal motor deficits and no sensory deficits noted Neuro Narrative: Generalized lower extremity weakness is noted Sensorium / Orientation: awake and alert Speech: speech normal Psych thought process normal and affect normal Results Lab / Micro Data Result Diagrams: 11/22/20 17:30 11/22/20 17:30 Labs: Laboratory Results - last 24 hr 11/22/20 11/22/20 11/22/20 17:30 17:30 17:30 WBC 8.7 RBC 3.89 L Hgb 11.4 L Hct 36.0 L MCV 92.5 MCH 29.3 MCHC 31.7 L RDW Std Deviation 46.5 H RDW Coeff of Jordin 13.5 Plt Count 352 MPV 8.4 PT 14.0 INR 1.1 Sodium 134 L Potassium 4.5 Chloride 99 Carbon Dioxide 27.0 Anion Gap 8 BUN 14 Creatinine 0.96 Estim Creat Clear Calc 48.37 Est GFR (MDRD) Af Amer 73 Est GFR (MDRD) Non-Af 61 BUN/Creatinine Ratio 14.5 Glucose 104 Calcium 8.6 Blood Type Antibody Screen 11/22/20 17:30 WBC RBC Hgb Hct MCV MCH MCHC RDW Std Deviation RDW Coeff of Jordin Plt Count MPV PT INR Sodium Potassium Chloride Carbon Dioxide Anion Gap BUN Creatinine Estim Creat Clear Calc Est GFR (MDRD) Af Amer Est GFR (MDRD) Non-Af BUN/Creatinine Ratio Glucose Calcium Blood Type A POSITIVE Antibody Screen NEGATIVE Assessment & Plan Assessment/Plan (1) Bleeding external hemorrhoids: PLAN: 1. Bright red rectal bleeding-probably secondary to external hemorrhoids-patient will be placed in observation status on [facility] 3, CBC will be repeated tomorrow, if patient has any more episodes of rectal bleeding I may elect to get another H&H before then. #2 generalized debility secondary to spinal stenosis and multiple medical problems-PT and OT will see the patient, she will need readmission to a long-term facility for further rehab services, this will not occur till next week. #3 spinal stenosis #4 seizure disorder #5 COPD #6 essential hypertension #7 chronic pain syndrome #8 restless leg syndrome #9 degenerative joint disease of the lumbar spine #10 polyneuropathy by history #11 hypothyroidism #12 obstructive sleep apnea-patient is noncompliant with CPAP, patient uses 2 L of oxygen via nasal cannula at night, she will continue this while she is in the hospital Charges/Coding Visit Charges OBSV E&M: 01212 Initial observation care L3
[2020-11-22 19:56] VITALS: BP 102/87; PULSE 96; RESP 20; TEMP 37.1; O2SAT 100
[2020-11-22 20:49] VITALS: BMI 31.3
[2020-11-22 20:53] VITALS: BP 132/99; PULSE 85; RESP 18; TEMP 37.8; O2SAT 99
[2020-11-22] MEDS: Heparin Injection (Vial) 5,000 UNIT/ML VIAL 5000 UNIT SC (21:55)
[2020-11-22] MEDS: BRIMONIDINE 0.15% 5 ML Bottle 1 DRP OPHTHALMIC (21:56)
[2020-11-22] MEDS: Latanoprost 0.005% 1 Bottle 1 DRP OPHTHALMIC (21:56)
[2020-11-22] MEDS: Mirabegron 25 MG TAB.ER.24H PO (21:57)
[2020-11-22] MEDS: Benztropine 2 MG Tablet PO (21:57)
[2020-11-22] MEDS: Potassium Chloride Oral Tablet 20 MEQ PO (21:58)
[2020-11-22] MEDS: Mirtazapine 15 MG Tablet 7.5 MG PO (21:59)
[2020-11-22] MEDS: Pramipexole Di-HCl 1 MG Tablet PO (21:59)
[2020-11-22] MEDS: OXcarbazepine 600 MG Tablet PO (22:00)
[2020-11-22] MEDS: Temazepam 15 MG Capsule 30 MG PO (22:05)
[2020-11-22] MEDS: Phenobarbital 32.4 MG Tablet PO (22:05)
[2020-11-22] MEDS: Methadone 10 MG Tablet PO (22:05)
[2020-11-22] MEDS: Acetaminophen 325 MG Tablet 650 MG PO (23:17)
[2020-11-23 02:16] VITALS: BP 101/54; PULSE 82; RESP 18; TEMP 36.7; O2SAT 97
[2020-11-23] MEDS: Levothyroxine 50 MCG Tablet PO (05:37)
[2020-11-23] MEDS: Methadone 10 MG Tablet PO ×3 (05:38→20:58)
[2020-11-23 06:02] LABS: Absolute Lymphocyte Count 2.13 X10^3/uL (0.83-4.51); Absolute Neutrophil Count 3.6 X10^3/uL (2.0-7.7); Basophil# 0.03 X10^3/uL; Basophil% 0.4 % (0-1); Eosinophil# 0.28 X10^3/uL; Eosinophils% 4.2 % (0-5); Hematocrit 32.9 % (37-47); Hemoglobin 10.2 g/dL (12.0-15.0); Lymphocyte # 2.13 X10^3/ul (0.83-4.51); Lymphocyte % 31.8 % (19-41); Mean Corpuscular Hgb 28.8 pg (27.0-32.0); Mean Corpuscular Volume 92.9 fL (81-99); Mean Platelet Vol. 8.3 fl (6.2-12.0); Monocyte# 0.61 X10^3/uL; Monocyte% 9.1 % (0-10); NRBC Flagged by Analyzer 0 % (0-5); Neutrophil # 3.63 X10^3/uL (2.7-7.7); Neutrophil % 54.2 % (47-70); Platelet Count 322 K/mm3 (150-450); RBC Distribution Width CV 13.3 % (11.6-14.6); RBC Distribution Width SD 45.8 fl (35.1-43.9); Red Blood Count 3.54 M/mm3 (4.2-5.4); White Blood Count 6.7 K/mm3 (4.4-11.0)
--- NOTE | 2020-11-23 06:32 | PCM.PN.HOSP ---
Subjective Subjective Patient with no acute events overnight per self and per nursing report. Patient had no further episodes of rectal/hemorrhoidal bleeding but states she has not gone to the bathroom. Patient does admit to history of significant constipation with recent admission attributed to constipation. Patient does note mild nausea this morning but is yet to eat. Patient denies fevers, chills, emesis, abdominal pain, chest pain or dyspnea. Objective Data Objective Data Vital Signs: Vital Signs Temp Pulse Resp BP Pulse Ox 98.1 F 82 18 101/54 L 97 11/23/20 02:16 11/23/20 02:16 11/23/20 02:16 11/23/20 02:16 11/23/20 02:16 Oxygen Flow Rate (L/min) 2 Oxygen Delivery Method Nasal Cannula Weight: 188 lb 0.869 oz Body Mass Index (BMI) 31.3 Intake & Output: Intake and Output for Last 24 Hours 11/21/20 11/22/20 11/23/20 23:59 23:59 23:59 Output Total 200 / 200 300 / 300 Balance -200 / -200 -300 / -300 Lab / Micro Data Result Diagrams: 11/23/20 05:39 11/22/20 17:30 Labs: Laboratory Results - last 24 hr 11/22/20 11/22/20 11/22/20 17:30 17:30 17:30 WBC 8.7 RBC 3.89 L Hgb 11.4 L Hct 36.0 L MCV 92.5 MCH 29.3 MCHC 31.7 L RDW Std Deviation 46.5 H RDW Coeff of Jordin 13.5 Plt Count 352 MPV 8.4 Immature Gran % (Auto) Neut % (Auto) Lymph % (Auto) [place] % (Auto) Eos % (Auto) Baso % (Auto) Absolute Neuts (auto) Absolute Lymphs (auto) Nucleated RBC % PT 14.0 INR 1.1 Sodium 134 L Potassium 4.5 Chloride 99 Carbon Dioxide 27.0 Anion Gap 8 BUN 14 Creatinine 0.96 Estim Creat Clear Calc 48.37 Est GFR (MDRD) Af Amer 73 Est GFR (MDRD) Non-Af 61 BUN/Creatinine Ratio 14.5 Glucose 104 Calcium 8.6 Blood Type Antibody Screen 11/22/20 11/23/20 17:30 05:39 WBC 6.7 RBC 3.54 L Hgb 10.2 L Hct 32.9 L MCV 92.9 MCH 28.8 MCHC 31.0 L RDW Std Deviation 45.8 H RDW Coeff of Jordin 13.3 Plt Count 322 MPV 8.3 Immature Gran % (Auto) 0.300 Neut % (Auto) 54.2 Lymph % (Auto) 31.8 [place] % (Auto) 9.1 Eos % (Auto) 4.2 Baso % (Auto) 0.4 Absolute Neuts (auto) 3.6 Absolute Lymphs (auto) 2.13 Nucleated RBC % 0 PT INR Sodium Potassium Chloride Carbon Dioxide Anion Gap BUN Creatinine Estim Creat Clear Calc Est GFR (MDRD) Af Amer Est GFR (MDRD) Non-Af BUN/Creatinine Ratio Glucose Calcium Blood Type A POSITIVE Antibody Screen NEGATIVE Physical Exam Narrative Physical Examination: General: awake, alert, oriented to self, place and recent events, seated upright, initially sleeping in the MS bed, NAD, does report mild nausea. Skin: normal color, turgor, no icterus, cyanosis. HEENT: AT/NC, EOMI, PERRLA, mildly dry MM. Lungs: Milldy diminished, > bases, moderate effort, no rales, ronchi or wheezing. Heart: Regular rate and rhythm; no gallop, rub audible. Abdomen: soft, NTTP, ND, normal BS, no HSM. Extremities: no cyanosis, clubbing, or edema. Neurological: awake, alert, oriented to self, place and recent events; cognitive function baseline intact; pupils equally reactive to light and accomodation; cranial nerves II-XII grossly normal, moving all 4 extremities, no focal deficits, strength moderately globally decreased. Psychiatric: affect appears fatigued, no acute evidence of depressive or anxiety feelings. Assessment & Plan Assessment/Plan (1) Adult failure to thrive: (2) Bleeding external hemorrhoids: PLAN: The patient is a 70 y/o F w/ PMHx: Anxiety and Depression/? Borderline, Seizure disorder, Chronic back pain with spinal stenosis/DDD w/ polyneuropathy, HTN, HLD, Chronic pain syndrome, RLS, Hypothyroidism, CHUY non-compliant with CPAP and instead uses 2L NC q HS, Chronic COPD (2L NC q HS) who presents to the [facility] ED on 11/22/20 following recent SNF discharge the day prior with weakness, debility, fall, rectal hemorrhoidal bleeding with bowel movement prompting family to bring her to the ED. 1. Rectal bleeding suspected to secondary to external hemorrhoidal bleeding: Patient hemoglobin similar to prior, no further episodes of hemorrhoidal bleeding since presentation, will maintain on medical surgical floor, trend CBC although if recurrent rectal bleeding would opt to obtain H&H and alter treatment as needed. Temporarily hold aspirin and any chemoprophylaxis. If recurrent hemorrhoidal bleeding may consider consultation with general surgery for banding or other intervention if necessary. 2. Failure to thrive, debility in adult secondary to significant chronic pain syndrome with chronic back pain with spinal stenosis and generative disc disease: We will maintain on fall precautions, PT, OT as well as case management consultations for discharge planning with likely need for return to skilled facility versus rehab. We will continue patient home chronic methadone regimen with adjustments as needed, frequent positional changes. 3. Anxiety and depression, possible underlying borderline history: We will continue patient home duloxetine, risperidone, mirtazapine home regimen. 4. Seizure disorder, epilepsy: We will continue patient home oxcarbazepine, phenobarbital regimen, may consider levels of any concern. Encourage continued outpatient follow-up with neurology. 5. Restless leg syndrome: We will continue patient home Requip regimen. 6. Hypothyroidism: Continue home synthroid regimen. 7. Hypertension: Not on hypertensive regimen, BP normal, continue to monitor. As needed agents if needed. 8. Hyperlipidemia: Not on regimen, defer to outpatient. 9. Chronic COPD w/ Chronic Hypoxic Respiratory Failure: Patient with chronic 2 L nasal cannula usage at night, complicated by CHUY with noncompliance with CPAP, not on chronic inhaler regimen, PRN albuterol, HOB, IS parameters. 10. Tobacco Abuse: Encouraged cessation, inpatient consultation per RT, NR if desired. 11. DVT prophylaxis: SCDs, defer chemoprophylaxis given acute presentation as noted #1. Charges/Coding Visit Charges OBSV E&M: 61575 Subsequent observation care L2
[2020-11-23] MEDS: 0.9% Saline Lock 10 ML Syringe IV (07:33)
[2020-11-23] MEDS: Ondansetron 4 MG/2 ML Vial IV (07:33)
[2020-11-23 07:37] VITALS: BP 117/60; PULSE 80; RESP 18; TEMP 36.7; O2SAT 99
[2020-11-23] MEDS: Benztropine 2 MG Tablet PO ×2 (09:24→20:57)
[2020-11-23] MEDS: Phenobarbital 32.4 MG Tablet PO ×2 (09:24→20:58)
[2020-11-23] MEDS: DULoxetine Hcl 20 MG Capsule PO (09:24)
[2020-11-23] MEDS: Mirabegron 25 MG TAB.ER.24H PO ×2 (09:24→20:58)
[2020-11-23] MEDS: OXcarbazepine 600 MG Tablet PO ×2 (09:24→20:59)
[2020-11-23] MEDS: Pantoprazole Sodium 20 MG Tablet PO (09:24)
[2020-11-23] MEDS: Potassium Chloride Oral Tablet 20 MEQ PO ×2 (09:24→20:58)
[2020-11-23] MEDS: RisperiDONE 0.25 MG Tablet PO (09:24)
[2020-11-23] MEDS: BRIMONIDINE 0.15% 5 ML Bottle 1 DRP OPHTHALMIC ×2 (09:25→20:57)
[2020-11-23 11:49] VITALS: BP 112/52; PULSE 89; RESP 18; TEMP 36.8; O2SAT 98
[2020-11-23] MEDS: Senna/Docusate Sodium 1 Tablet 2 TABLET PO (11:50)
[2020-11-23] MEDS: Polyethylene Glycol 3350 17 GM PACKET PO (11:50)
--- NOTE | 2020-11-23 12:20 | RAD_ITS ---
STUDY: X-RAY - LEFT KNEE REASON FOR EXAM: Female, 70 years old. Left knee pain, fall TECHNIQUE: 3 view(s) of the knee. COMPARISON: None. FINDINGS: Normal visualized distal femur. Normal visualized proximal tibia and fibula. Normal proximal tibiofibular articulation. Normal medial femorotibial compartment. Normal lateral femorotibial compartment. Normal patellofemoral articulation. The soft tissue structures are unremarkable. RAD/Knee 3 Views IMPRESSION: Normal x-ray examination of the knee. Electronically Signed: Navin Shahid MD at 15:32 EDT Tel , Service support ,
[2020-11-23 13:25] VITALS: O2SAT 90
[2020-11-23] MEDS: Calcium Carbonate 500 MG Tablet PO (16:16)
[2020-11-23] MEDS: Mag Hydrox/Al Hydrox/Simeth 30 ML UDC 15 ML PO (16:16)
[2020-11-23 16:18] VITALS: BP 144/60; PULSE 100; RESP 18; TEMP 37.2; O2SAT 94
[2020-11-23 20:52] VITALS: BP 112/62; PULSE 94; RESP 18; TEMP 37.6; O2SAT 95
[2020-11-23] MEDS: Pramipexole Di-HCl 1 MG Tablet PO (20:58)
[2020-11-23] MEDS: Mirtazapine 15 MG Tablet 7.5 MG PO (20:58)
[2020-11-23] MEDS: Latanoprost 0.005% 1 Bottle 1 DRP OPHTHALMIC (20:59)
[2020-11-24 02:50] VITALS: BP 102/59; PULSE 75; RESP 18; TEMP 36.9; O2SAT 94
[2020-11-24] MEDS: Methadone 10 MG Tablet PO ×3 (05:55→22:01)
[2020-11-24] MEDS: Levothyroxine 50 MCG Tablet PO (05:56)
[2020-11-24 07:18] VITALS: O2SAT 94
[2020-11-24 08:58] VITALS: BP 132/70; PULSE 70; PULSE 93; RESP 18; TEMP 37.4; O2SAT 94
[2020-11-24] MEDS: Polyethylene Glycol 3350 17 GM PACKET PO (09:16)
[2020-11-24] MEDS: Pantoprazole Sodium 20 MG Tablet PO (09:17)
[2020-11-24] MEDS: Acetaminophen 325 MG Tablet 650 MG PO ×2 (09:18→20:30)
[2020-11-24] MEDS: Potassium Chloride Oral Tablet 20 MEQ PO ×2 (09:18→22:01)
[2020-11-24] MEDS: Senna/Docusate Sodium 1 Tablet 2 TABLET PO (09:18)
[2020-11-24] MEDS: BRIMONIDINE 0.15% 5 ML Bottle 1 DRP OPHTHALMIC ×2 (09:19→22:00)
[2020-11-24] MEDS: Phenobarbital 32.4 MG Tablet PO ×2 (09:19→22:23)
[2020-11-24] MEDS: RisperiDONE 0.25 MG Tablet PO (09:19)
[2020-11-24] MEDS: Mirabegron 25 MG TAB.ER.24H PO ×2 (09:20→22:01)
[2020-11-24] MEDS: OXcarbazepine 600 MG Tablet PO ×2 (09:20→22:01)
[2020-11-24] MEDS: Benztropine 2 MG Tablet PO ×2 (09:21→22:01)
[2020-11-24] MEDS: DULoxetine Hcl 20 MG Capsule PO (09:21)
--- NOTE | 2020-11-24 11:18 | CASEMGMT ---
ERIC BELLE in to discuss WILDE Form with patient. RN YOSHI explained WILDE form to patient, patient voiced understanding. Patient signed WILDE Form and filed in chart. Patient provided with copy of signed WILDE form. Patient had no further questions or concerns at this time.
--- NOTE | 2020-11-24 11:39 | CASEMGMT ---
Addendum entered by Cheyanne Cee 11/24/20 14:44: SW completed PAS/RR in [facility]. Pt tripped the screen. SW faxed referral to [facility]. SW placed a call to [facility] and left message updating them on referral. SW placed a call to Carla at [facility] and updated her. Plan: [facility] pending pre-cert and approval from [facility]. Addendum entered by Cheyanne Cee 11/24/20 14:09: SW received call from Roopa at [facility] stating they are able to accept pt. SW in to speak with pt. SW updated pt that [facility] is able to accept pt and will submit for pre-cert. Pt confirms she has a psychiatric hospitalization last year, states it was somewhere in [place]. SW asked pt about SSI. Pt states she receives SSI due to her back. Pt states she was diagnosed with seizure disorder at the age of 20. Pt will trip the screen due to recent psych hospitalization. SW received call from pt's REYNA Davies. Samson states he and his brother have started looking for apartments in [place] for pt and plans to move pt to apartment in [place]. SW updated Samson that plan is for pt to return to [facility] pending pre-cert. Samson states he brought pt's cell phone in to pt. SW will complete PAS/RR and submit to [facility]. Addendum entered by Cheyanne Cee 11/24/20 13:12: Pt had also requested that this worker call her son Yaakov to ask him to bring in her cell phone. GRAHAM placed a call to pt's son Yaakov and updated him on pt's request for her call phone. Yaakov states it will be brought in today. Original Note: Social Work Note SW reviewed chart, pt is agreeable to SNF placement. SW in to speak with pt. SW familiar with pt from previous visits. SW introduced self and role at [facility]. Pt is alert and orientated. Pt confirms she is agreeable to return to SNF. Pt states she was at [facility] and discharged home. Patient was provided a list of SNF providers including quality and resource use data and consistent with the patient?s preferred geographic region, medical needs, and insurance network. Pt states her preferred provider is to return to [facility]. SW explained new referral will need to be started and pt will need pre-cert again. Pt states understanding. GRAHAM placed a call to Roopa at [facility] and provided referral. GRAHAM faxed referral. Roopa to review referral. GRAHAM placed a call to pt's CM Beata Chen and updated her on pt's admission to [facility] and discharge plan of SNF. Plan: [facility] pending pre-cert. Pt is in observation status and will need a PAS/RR. Due to pt's recent psych hospitalization and receiving SSI pt will trip the screen. Cheyanne Cee CUSTOMER SERVICE AGENT, TAX PROFESSIONAL
--- NOTE | 2020-11-24 13:25 | PN.HOSP_ITS ---
Subjective Subjective Patient was seen and examined. Denied having any more bleeding. Denied any rectal pain. She complains of pain in her left foot. Admits to falling a couple of days ago in the care home. Objective Data Objective Data Vital Signs: Vital Signs Temp Pulse Resp BP Pulse Ox 99.3 F H 93 18 132/70 H 94 11/24/20 08:58 11/24/20 08:58 11/24/20 08:58 11/24/20 08:58 11/24/20 08:58 Oxygen Flow Rate (L/min) 2 Oxygen Delivery Method Room Air Weight: 85.3 kg Body Mass Index (BMI) 31.3 Intake & Output: Intake and Output for Last 24 Hours 11/22/20 11/23/20 11/24/20 23:59 23:59 23:59 Intake Total 540 / 540 Output Total 200 / 200 925 / 925 400 / 400 Balance -200 / -200 -385 / -385 -400 / -400 Lab / Micro Data Result Diagrams: 11/23/20 05:39 11/22/20 17:30 Radiography Diagnostic Testing: Radiology Impression Knee X-Ray 11/23/20 12:20 IMPRESSION: Normal x-ray examination of the knee. Electronically Signed: Navin Shahid MD at 15:32 EDT Tel , Service support , Physical Exam Narrative Physical exam: General: Alert, Oriented x3, Cooperative, No apparent distress, Well developed HEENT: Atraumatic Oral: Moist Mucosa Neck: Supple Lungs: Clear to auscultation Cardiovascular: HS I+II, regular, no murmurs Abdomen: Bowel Sounds Present, Soft, Non Tender Extremities: Left foot is swollen, edema +1 Assessment & Plan Assessment/Plan (1) Bleeding external hemorrhoids: (2) Adult failure to thrive: (3) Acute lower gastrointestinal hemorrhage: (4) Left foot pain: PLAN: 1. Acute lower GI bleeding likely secondary to hemorrhoids; patient has had no more bleeding in the last 24 hours Vitals are stable. Hemoglobin also remained stable. We will continue to monitor 2. Left foot pain, status post fall, will get x-ray of the left foot, podiatry consult 3. Rest of chronic medical conditions complicates care and are stable for now?c hronic respiratory failure, COPD, anxiety/depression, seizure disorder, restless leg syndrome, hypertension, hypothyroidism Home medications reviewed Charges/Coding Visit Charges Inpatient E&M: 21018 Subs Hosp L2
--- NOTE | 2020-11-24 14:00 | RAD_ITS ---
STUDY: X-RAY - LEFT FOOT CLINICAL: Female, 70 years old. Fall, left foot pain TECHNIQUE: 3 view(s) of the foot. COMPARISON: None. FINDINGS: Normal talus, calcaneus, and tarsal bones. Normal visualized subtalar, talonavicular, calcaneocuboid, tarsal and tarsometatarsal articulations. There is demineralization of the metatarsi. There is degenerative arthrosis of the metatarsophalangeal joint of the hallux with a hallux valgus deformity. Normal tibial and fibular sesamoid bones. Normal interphalangeal joint of the great toe. Normal phalanges of the great toe. Normal second through fifth metatarsophalangeal joints. Normal interphalangeal joints and phalanges of the lesser toes. Dorsal soft tissue swelling. RAD/Foot min 3 Views IMPRESSION: Dorsal soft tissue swelling. No fracture is seen. No bony destruction is present. Electronically Signed: Isaias Munroe MD at 14:38 EDT , Service support ,
[2020-11-24 14:29] VITALS: BP 116/68; PULSE 89; RESP 18; TEMP 36.7; O2SAT 97
--- NOTE | 2020-11-24 17:21 | PCM.CONS.GEN ---
Assessment & Plan Assessment/Plan (1) Left foot pain: (2) Left ankle pain: (3) Walking difficulty due to ankle and foot: (4) Sprain of foot, left: (5) Edema, lower extremity: PLAN: I reviewed and discussed her plan including diagnostic data. Vitals are stable and she is afebrile. She does not have leukocytosis. Three nonweightbearing left foot x-rays were reviewed without acute fracture dislocation or diastases to the midfoot. There is significant reduction in bone density with increased visualization of the primary trabecular patterns consistent with bone loss. Ankle x-rays were ordered and results are pending. I recommend nonweightbearing until her x-rays are reviewed. If these are negative I would treat her for a foot and ankle sprain. Immobilization will be selected including surgical shoe or walking boot after the x-ray is reviewed and interpreted. To elevate at rest. Palmer wrap applied as recommended to reduce edema. Is noted she injured her knee and this may also contribute to referred pain. To work with PT and OT on ambulation assistance Her other comorbidities and medical management are noted. Thank you for the consultation. Please do not hesitate to have you have any questions. Kristine Cee DPM, FACF[facility] [phone] HPI Consult Data Date of Consult: 11/24/20 HPI Narrative Reason for Consultation: Left foot and ankle pain HPI Narrative: XANDER RAMIREZ, is a 70 F who complains of left foot and ankle pain rated as 8 out of 10 is dull and aching. This is aggravated with movement and attempt to walk. She reports she fell 4 days ago when her left knee gave out even though she was using a roller walker. She has swelling and denies known bruising or redness. She reports she does have a history of neuropathy and osteoporosis. She is not aware of her exact mechanism of injury. [facility] Medical History Anxiety COPD (chronic obstructive pulmonary disease) Degenerative disc disease, lumbar Depression Gastritis Hypertension Insomnia Obstructive sleep apnea On home oxygen therapy Pain, chronic Physical debility Restless leg syndrome Seizure disorder Seizures Sleep apnea Smoker Smokes with greater than 40 pack year history Home Medications aspirin 81 mg PO 1200 01/07/19 [History Last Taken 11/22/20] duloxetine 20 mg PO DAILY 01/07/19 [History Last Taken 11/22/20] levothyroxine 50 mcg PO DAILY 01/07/19 [History Last Taken 11/21/20] potassium chloride 20 meq PO BID 01/07/19 [History Last Taken 11/22/20] risperidone 0.25 mg PO QHS 01/07/19 [History Last Taken 11/21/20] mirtazapine 7.5 mg tablet 7.5 mg PO QHS tablet 02/21/19 [History Last Taken 11/21/20] latanoprost (PF) 1 drp EACHEYE QHS 08/08/19 [History Last Taken 11/21/20] nicotine 1 patch TOPICAL DAILY 08/08/19 [History Last Taken 11/22/20] ropinirole 2 mg PO QHS 08/08/19 [History Last Taken 11/21/20] acetaminophen 650 mg PO Q6H PRN PRN tablet 08/11/19 [Rx Last Taken Unknown] albuterol sulfate 90 mcg/actuation aerosol inhaler 1 inh INHALATION BID PRN PRN 05/13/20 [History Last Taken 11/21/20] calcium carbonate 500 mg calcium (1,250 mg) tablet 500 mg PO BID 05/13/20 [History Last Taken 11/22/20] fluticasone furoate 100 mcg-vilanterol 25 mcg/dose inhalation powder 2 puff INHALATION DAILY 05/13/20 [History Last Taken 11/22/20] mirabegron 25 mg tablet,extended release 24 hr 25 mg PO BID tab 05/13/20 [History Last Taken 11/22/20] omeprazole 20 mg capsule,delayed release 20 mg PO DAILY cap 05/13/20 [History Last Taken 11/22/20] sennosides 8.6 mg-docusate sodium 50 mg tablet 2 tab PO BID 05/13/20 [History Last Taken 11/22/20] brimonidine 0.15 % eye drops 1 drp OPHTHALMIC BID 07/09/20 [History Last Taken 11/22/20] benztropine 2 mg tablet 2 mg PO BID #60 tab 10/13/20 [Rx Last Taken 11/22/20] oxcarbazepine 600 mg tablet 600 mg PO BID #60 tab 10/13/20 [Rx Last Taken 11/22/20] phenobarbital 32.4 mg tablet 32.4 mg PO BID #60 tab 10/13/20 [Rx Last Taken 11/22/20] cholecalciferol (vitamin D3) 1,250 mcg PO WE 10/20/20 [History Last Taken 11/19/20] multivitamin 1 tab PO 1200 10/20/20 [History Last Taken 11/22/20] temazepam 30 mg PO QHS PRN 10/20/20 [History Last Taken 11/21/20] methadone 10 mg PO TID 5 Days #15 tab 10/25/20 [Rx Last Taken 11/22/20] Allergy/AdvReac Type Severity Reaction Status Date / Time codeine Allergy Mild HIVES Verified 11/22/20 16:58 Penicillins Allergy Anaphylaxis Verified 11/22/20 16:58 Family History Mother Diabetes Heart disease Hypertension CAD (coronary artery disease) CVA (cerebral vascular accident) Thyroid disorder Father Colon cancer Surgical History History of bilateral carpal tunnel release History of bilateral cataract extraction History of blepharoplasty History of cystoscopy History of esophagogastroduodenoscopy (EGD) (~03/07/19) History of right hip replacement History of right salpingo-oophorectomy S/P appendectomy S/P laparoscopic cholecystectomy Status post ORIF of fracture of ankle Social History Smoking Status: Current every day smoker tobacco type: cigarettes Tobacco: How many years used: 50 alcohol intake: never substance use type: does not use ROS Review of Systems ROS Unobtainable: Denies due to encephalopathy Constitutional Constitutional: Reports fatigue and weakness; Denies anorexia, change in weight, chills, fever(s) or night sweats Cardiovascular Cardiovascular: Denies chest pain, claudication, dyspnea on exertion, edema, lightheadedness, orthopnea or palpitations Musculoskeletal Musculoskeletal: Reports back pain, joint pain and joint stiffness; Denies joint swelling, myalgias or neck pain Integumentary Integumentary: Denies rash Neurologic Neurologic: Reports paresthesias and tingling Hematologic/Lymphatic Hematologic/Lymphatic: Denies none, anemia, easy bleeding, easy bruising or lymphadenopathy Physical Exam Const alert and oriented x3 General Appearance: cooperative HEENT normocephalic Extremity Extremity Narrative: No calf tenderness Diminished pulses but palpable bilateral pt and dp Muscle wasting noted She has pain on palpation reported at every site tested however seems to be more localized around the lateral ankle and sinus tarsi area and also to the metatarsal phalangeal joint area of the fourth and fifth rays. There is also manipulation discomfort to the midfoot Compartments remain soft to palpate Edema left lower extremity pitting more than the contralateral right limb General Extremity: edema and no tenderness to palpation of joints or extremities; Negative for cyanosis Skin Skin Narrative: no purulence, no streaking, no odor, no infection. No ecchymosis, necrosis, bogginess, ulcer bilateral General Skin Exam: Negative for erythema Neuro Neuro Narrative: lack of normal epicritic sensation via light touch is consistent with neuropathy status Psych cooperative and affect normal Lab / Micro Data Result Diagrams: 11/23/20 05:39 11/22/20 17:30 Radiology Impression Foot X-Ray 11/24/20 14:00 IMPRESSION: Dorsal soft tissue swelling. No fracture is seen. No bony destruction is present. Electronically Signed: Isaias Munroe MD at 14:38 EDT , Service support ,
--- NOTE | 2020-11-24 17:25 | RAD_ITS ---
HISTORY: pain s/p fall 4 days ago EXAMINATION/TECHNIQUE: XR Ankle 3 Views: Left ankle COMPARISON: None FINDINGS: SOFT TISSUES: No significant ankle soft tissue swelling. BONES/JOINTS: No acute fracture or subluxation. Small chronic avulsion fragment abutting tip of medial malleolus. Normal alignment. Preservation of the joint spaces. No destructive changes observed. RAD/Ankle min 3 Views IMPRESSION: Small chronic avulsion fragment at medial malleolus. at 0138 Reported and signed by: Dariusz Goodwin MD Electronically Signed: Dariusz Goodwin MD at 1:37 EDT Tel , Service support ,
[2020-11-24 20:18] VITALS: BP 145/69; PULSE 92; RESP 18; TEMP 37; O2SAT 98
[2020-11-24] MEDS: Temazepam 15 MG Capsule 30 MG PO (20:30)
[2020-11-24] MEDS: Heparin Injection (Vial) 5,000 UNIT/ML VIAL 5000 UNIT SC (22:00)
[2020-11-24] MEDS: Latanoprost 0.005% 1 Bottle 1 DRP OPHTHALMIC (22:00)
[2020-11-24] MEDS: Pramipexole Di-HCl 1 MG Tablet PO (22:01)
[2020-11-24] MEDS: Mirtazapine 15 MG Tablet 7.5 MG PO (22:23)
[2020-11-25 02:54] VITALS: BP 140/73; PULSE 80; RESP 18; TEMP 36.7; O2SAT 100
[2020-11-25] MEDS: Acetaminophen 325 MG Tablet 650 MG PO ×2 (02:58→20:23)
[2020-11-25 05:47] LABS: Absolute Lymphocyte Count 1.89 X10^3/uL (0.83-4.51); Absolute Neutrophil Count 3.4 X10^3/uL (2.0-7.7); Basophil# 0.05 X10^3/uL; Basophil% 0.8 % (0-1); Eosinophil# 0.28 X10^3/uL; Eosinophils% 4.5 % (0-5); Hematocrit 33.9 % (37-47); Hemoglobin 10.9 g/dL (12.0-15.0); Lymphocyte # 1.89 X10^3/ul (0.83-4.51); Lymphocyte % 30.6 % (19-41); Mean Corp Hgb Conc 32.2 g/dL (32-36); Mean Corpuscular Hgb 29.8 pg (27.0-32.0); Mean Corpuscular Volume 92.6 fL (81-99); Mean Platelet Vol. 8.5 fl (6.2-12.0); Monocyte# 0.52 X10^3/uL; Monocyte% 8.4 % (0-10); NRBC Flagged by Analyzer 0 % (0-5); Neutrophil % 55.1 % (47-70); Platelet Count 327 K/mm3 (150-450); RBC Distribution Width CV 13.1 % (11.6-14.6); RBC Distribution Width SD 44.6 fl (35.1-43.9); Red Blood Count 3.66 M/mm3 (4.2-5.4); White Blood Count 6.2 K/mm3 (4.4-11.0)
[2020-11-25 06:09] LABS: ALB/GLOB Ratio 0.6 RATIO (0.9-2.4); AST(SGOT) 14 U/L (15-37); Alanine Aminotransfer ALT/SGPT 11 U/L (13-56); Albumin, Serum 2.3 g/dL (3.2-5.0); Alkaline Phosphatase 68 U/L (45-117); Anion Gap 4 (5-15); BUN 11 mg/dL (7-18); BUN/Creat Ratio 19.3 RATIO (10-20); Calcium,Total 8.2 mg/dL (8.5-10.1); Chloride 101 mmol/L (98-107); Creatinine, Serum 0.57 mg/dL (0.55-1.02); EST Glomerular Filtration Rate 111 mL/min (>60); Est Glom Filt Rate - Afr Amer 135 mL/min (>60); Estimated Creatinine Clearance 46.43 ml/min; Globulin 3.7 g/dL (2.2-4.2); Glucose 141 mg/dL (74-106); Potassium 4.1 mmol/L (3.5-5.1); Sodium Level 135 mmol/L (136-145)
[2020-11-25] MEDS: Methadone 10 MG Tablet PO ×3 (06:09→21:08)
[2020-11-25] MEDS: Levothyroxine 50 MCG Tablet PO (06:09)
[2020-11-25 07:31] VITALS: O2SAT 97
[2020-11-25 08:43] VITALS: BP 130/77; PULSE 82; RESP 18; TEMP 37; O2SAT 100
[2020-11-25] MEDS: Magnesium Hydroxide 30 ML UDC 15 ML PO (09:49)
[2020-11-25] MEDS: Polyethylene Glycol 3350 17 GM PACKET PO (09:50)
[2020-11-25] MEDS: Potassium Chloride Oral Tablet 20 MEQ PO ×2 (09:50→21:08)
[2020-11-25] MEDS: Phenobarbital 32.4 MG Tablet PO ×2 (09:50→21:08)
[2020-11-25] MEDS: Senna/Docusate Sodium 1 Tablet 2 TABLET PO (09:50)
[2020-11-25] MEDS: DULoxetine Hcl 20 MG Capsule PO (09:51)
[2020-11-25] MEDS: Benztropine 2 MG Tablet PO ×2 (09:51→21:08)
[2020-11-25] MEDS: Heparin Injection (Vial) 5,000 UNIT/ML VIAL 5000 UNIT SC ×2 (09:51→21:07)
[2020-11-25] MEDS: RisperiDONE 0.25 MG Tablet PO (09:52)
[2020-11-25] MEDS: Mirabegron 25 MG TAB.ER.24H PO ×2 (09:52→21:08)
[2020-11-25] MEDS: Pantoprazole Sodium 20 MG Tablet PO (09:52)
[2020-11-25] MEDS: OXcarbazepine 600 MG Tablet PO ×2 (09:52→21:08)
[2020-11-25] MEDS: BRIMONIDINE 0.15% 5 ML Bottle 1 DRP OPHTHALMIC ×2 (10:53→21:08)
--- NOTE | 2020-11-25 11:06 | PCM.PN.HOSP ---
Subjective Subjective Patient was seen and examined. No more bleeding seen. She complains of constipation; stool softeners ordered X-ray of the left ankle shows small chronic avulsion fragment at the medial malleolus. Patient is nonweightbearing by podiatry Objective Data Objective Data Vital Signs: Vital Signs Temp Pulse Resp BP Pulse Ox 98.6 F 82 18 130/77 H 100 11/25/20 08:43 11/25/20 08:43 11/25/20 08:43 11/25/20 08:43 11/25/20 08:43 Oxygen Flow Rate (L/min) 2 Oxygen Delivery Method Nasal Cannula Weight: 85.3 kg Body Mass Index (BMI) 31.3 Intake & Output: Intake and Output for Last 24 Hours 11/23/20 11/24/20 11/25/20 23:59 23:59 23:59 Intake Total 540 / 540 350 / 350 150 / 150 Output Total 925 / 925 950 / 950 300 / 300 Balance -385 / -385 -600 / -600 -150 / -150 Lab / Micro Data Result Diagrams: 11/25/20 05:40 11/25/20 05:40 Labs: Laboratory Results - last 24 hr 11/25/20 11/25/20 05:40 05:40 WBC 6.2 RBC 3.66 L Hgb 10.9 L Hct 33.9 L MCV 92.6 MCH 29.8 MCHC 32.2 RDW Std Deviation 44.6 H RDW Coeff of Jordin 13.1 Plt Count 327 MPV 8.5 Immature Gran % (Auto) 0.600 Neut % (Auto) 55.1 Lymph % (Auto) 30.6 [place] % (Auto) 8.4 Eos % (Auto) 4.5 Baso % (Auto) 0.8 Absolute Neuts (auto) 3.4 Absolute Lymphs (auto) 1.89 Nucleated RBC % 0 Sodium 135 L Potassium 4.1 Chloride 101 Carbon Dioxide 30.0 Anion Gap 4 L BUN 11 Creatinine 0.57 Estim Creat Clear Calc 46.43 Est GFR (MDRD) Af Amer 135 Est GFR (MDRD) Non-Af 111 BUN/Creatinine Ratio 19.3 Glucose 141 H Calcium 8.2 L Total Bilirubin 0.20 AST 14 L ALT 11 L Alkaline Phosphatase 68 Total Protein 6.0 L Albumin 2.3 L Globulin 3.7 Albumin/Globulin Ratio 0.6 L Radiography Diagnostic Testing: Radiology Impression Foot X-Ray 11/24/20 14:00 IMPRESSION: Dorsal soft tissue swelling. No fracture is seen. No bony destruction is present. Electronically Signed: Isaias Munroe MD at 14:38 EDT , Service support , Ankle X-Ray 11/24/20 17:25 IMPRESSION: Small chronic avulsion fragment at medial malleolus. at 0138 Reported and signed by: Dariusz Goodwin MD Electronically Signed: Dariusz Goodwin MD at 1:37 EDT Tel , Service support , Physical Exam Narrative Physical exam: General: Alert, Oriented x3, Cooperative, No apparent distress, Well developed HEENT: Atraumatic Oral: Moist Mucosa Neck: Supple Lungs: Clear to auscultation Cardiovascular: HS I+II, regular, no murmurs Abdomen: Bowel Sounds Present, Soft, Non Tender Extremities: Left foot is swollen, edema +1 HEENT normocephalic, head/scalp atraumatic, hearing grossly normal bilaterally and moist oral mucous membranes Assessment & Plan Assessment/Plan (1) Bleeding external hemorrhoids: (2) Adult failure to thrive: (3) Acute lower gastrointestinal hemorrhage: (4) Left foot pain: PLAN: 1. Acute lower GI bleeding likely secondary to hemorrhoids; appears to be resolved Vitals are stable. Hemoglobin also remained stable. Will continue to monitor 2. Microcytic microchromic anemia, likely secondary to chronic blood loss from hemorrhoids We will check iron stores, start patient on oral iron 3. Left foot pain, status post fall, x-ray of the left ankle show small chronic avulsion fracture of the medial malleolus 4. Rest of chronic medical conditions complicates care and are stable for now?chronic respiratory failure, COPD, anxiety/depression, seizure disorder, restless leg syndrome, hypertension, hypothyroidism Home medications reviewed 5. Disposition: Awaiting discharge to long-term facility Charges/Coding Visit Charges Inpatient E&M: 79903 Subs Hosp L2
--- NOTE | 2020-11-25 11:26 | CASEMGMT ---
Social Work Note GRAHAM placed a call to Yana at [facility], pre-cert is still pending. GRAHAM informed Yana that pt did trip the screen and will need approval from [facility]. Yana states understanding. Plan: [facility] NONPROFIT FUNDRAISER, OUTSIDE COLLECTOR
[2020-11-25 12:26] VITALS: O2SAT 94
--- NOTE | 2020-11-25 13:02 | CASEMGMT ---
Social Work Note SW received message from [facility] with [facility] requesting clinicals either be uploaded in [facility] system or clinical be faxed to . SW did fax clinicals yesterday to [facility] but will refax. [facility] also requested SW call her back at [phone]. SW attempted to call [facility] back, no answer, no identifying information on voicemail, SW left message for [facility] to call this worker back. SW faxed clinicals to [facility]. Plan: [facility] pending pre-cert and approval from [facility] Cheyanne Cee FLUORESCENT LAMP REPLACER, PAINTER TUMBLING BARREL
[2020-11-25 13:51] LABS: Ferritin 111 ng/mL (8-252); Iron 71 ug/dL (50-170); Iron Binding Capacity,Total 251 ug/dL (250-450); PERCENT IRON SATURATION 28.3 % (15.0-55.0)
--- NOTE | 2020-11-25 14:24 | CASEMGMT ---
Social Work Note SW received call from Olga at [facility] with questions, SW answered questions. Olga asked if she is able to speak with pt to interview pt. GRAHAM informed Olga that pt has her cell phone in her room, can call that. GRAHAM provided Olga with pt's cell phone number. Olga states that when she calls pt it will be on a secured line and pt will need to press 1 to talk to Olga, Olga asked for this worker to inform pt of that. SW in to speak with pt. GRAHAM spoke with pt about [facility] and how they will be calling pt to complete assessment. SW informed pt that she tripped the screen due to recent psychiatric hospitalization. Pt spoke with this worker about her suicide attempt. Pt states she thought at that moment that her family would be better off without her and it was around her 's anniversary. SW offered support to pt. Pt denied any current suicidal thoughts/plans/ideations. GRAHAM spoke with pt about how [facility] will be calling her to complete assessment, pt states understanding. GRAHAM received call from pt's REYNA Davies stating his brother Yaakov received a call from [facility] for an update and Yaakov was not able to answer it. Samson asked for update. GRAHAM spoke with RN, she had called Yaakov but the update was just that pre-cert is still pending. GRAHAM placed a call to Samson ([phone]) and updated him that the update was just that pre-cert is still pending. Samson asked that a note be made that Yaakov works 7:00-3:30pm and can't really get to his phone during the day and to call Samson with updates as Samson is more available to answer the phone. Cheyanne Cee WAREHOUSE EXAMINER, STUDY HALL SUPERVISOR
[2020-11-25 14:45] VITALS: BP 136/107; PULSE 80; RESP 18; TEMP 37.1; O2SAT 94
[2020-11-25] MEDS: Ferrous Sulfate 325 MG Tablet PO (16:34)
[2020-11-25 20:17] VITALS: BP 122/109; PULSE 90; RESP 18; TEMP 36.6; O2SAT 99
[2020-11-25] MEDS: Latanoprost 0.005% 1 Bottle 1 DRP OPHTHALMIC (21:07)
[2020-11-25] MEDS: Temazepam 15 MG Capsule 30 MG PO (21:08)
[2020-11-25] MEDS: Mirtazapine 15 MG Tablet 7.5 MG PO (21:08)
[2020-11-25] MEDS: Pramipexole Di-HCl 1 MG Tablet PO (21:08)
[2020-11-26 02:40] VITALS: BP 112/89; PULSE 86; RESP 18; TEMP 36.8; O2SAT 99
[2020-11-26 06:17] LABS: Absolute Lymphocyte Count 1.97 X10^3/uL (0.83-4.51); Absolute Neutrophil Count 3.6 X10^3/uL (2.0-7.7); Basophil# 0.03 X10^3/uL; Basophil% 0.5 % (0-1); Eosinophil# 0.27 X10^3/uL; Eosinophils% 4.2 % (0-5); Hematocrit 33.2 % (37-47); Hemoglobin 10.7 g/dL (12.0-15.0); Lymphocyte # 1.97 X10^3/ul (0.83-4.51); Lymphocyte % 30.7 % (19-41); Mean Corp Hgb Conc 32.2 g/dL (32-36); Mean Corpuscular Hgb 29.5 pg (27.0-32.0); Mean Corpuscular Volume 91.5 fL (81-99); Mean Platelet Vol. 8.1 fl (6.2-12.0); Monocyte# 0.52 X10^3/uL; Monocyte% 8.1 % (0-10); NRBC Flagged by Analyzer 0 % (0-5); Neutrophil # 3.58 X10^3/uL (2.7-7.7); Neutrophil % 55.7 % (47-70); Platelet Count 329 K/mm3 (150-450); RBC Distribution Width CV 12.9 % (11.6-14.6); RBC Distribution Width SD 43.7 fl (35.1-43.9); Red Blood Count 3.63 M/mm3 (4.2-5.4); White Blood Count 6.4 K/mm3 (4.4-11.0)
[2020-11-26] MEDS: Methadone 10 MG Tablet PO ×3 (06:24→21:57)
[2020-11-26] MEDS: Levothyroxine 50 MCG Tablet PO (06:24)
[2020-11-26 06:50] LABS: ALB/GLOB Ratio 0.6 RATIO (0.9-2.4); AST(SGOT) 15 U/L (15-37); Alanine Aminotransfer ALT/SGPT 14 U/L (13-56); Albumin, Serum 2.3 g/dL (3.2-5.0); Alkaline Phosphatase 70 U/L (45-117); Anion Gap 6 (5-15); BUN 14 mg/dL (7-18); BUN/Creat Ratio 32.2 RATIO (10-20); Calcium,Total 8.2 mg/dL (8.5-10.1); Chloride 100 mmol/L (98-107); Creatinine, Serum 0.44 mg/dL (0.55-1.02); EST Glomerular Filtration Rate 152 mL/min (>60); Est Glom Filt Rate - Afr Amer 184 mL/min (>60); Estimated Creatinine Clearance 46.43 ml/min; Globulin 3.7 g/dL (2.2-4.2); Glucose 158 mg/dL (74-106); Potassium 3.9 mmol/L (3.5-5.1); Sodium Level 135 mmol/L (136-145)
[2020-11-26 07:18] VITALS: O2SAT 96
[2020-11-26] MEDS: Calcium Carbonate 500 MG Tablet PO ×2 (07:58→16:34)
[2020-11-26] MEDS: Mag Hydrox/Al Hydrox/Simeth 30 ML UDC 15 ML PO (08:20)
[2020-11-26 08:30] VITALS: BP 146/92; PULSE 98; RESP 18; TEMP 36.8; O2SAT 95
[2020-11-26] MEDS: Pantoprazole Sodium 20 MG Tablet PO (09:47)
[2020-11-26] MEDS: OXcarbazepine 600 MG Tablet PO ×2 (09:47→21:59)
[2020-11-26] MEDS: DULoxetine Hcl 20 MG Capsule PO (09:47)
[2020-11-26] MEDS: Benztropine 2 MG Tablet PO ×2 (09:49→21:57)
[2020-11-26] MEDS: Potassium Chloride Oral Tablet 20 MEQ PO ×2 (09:49→21:58)
[2020-11-26] MEDS: Mirabegron 25 MG TAB.ER.24H PO ×2 (09:49→21:58)
[2020-11-26] MEDS: Polyethylene Glycol 3350 17 GM PACKET PO (09:50)
[2020-11-26] MEDS: BRIMONIDINE 0.15% 5 ML Bottle 1 DRP OPHTHALMIC ×2 (09:50→21:55)
[2020-11-26] MEDS: Senna/Docusate Sodium 1 Tablet 2 TABLET PO (09:51)
[2020-11-26] MEDS: Heparin Injection (Vial) 5,000 UNIT/ML VIAL 5000 UNIT SC ×2 (09:51→21:58)
[2020-11-26] MEDS: RisperiDONE 0.25 MG Tablet PO (09:52)
[2020-11-26] MEDS: Acetaminophen 325 MG Tablet 650 MG PO (09:58)
[2020-11-26] MEDS: Phenobarbital 32.4 MG Tablet PO ×2 (09:58→21:57)
--- NOTE | 2020-11-26 10:52 | CASEMGMT ---
Addendum entered by Cheyanne Cee 11/26/20 14:24: GRAHAM received call from Yana at [facility] stating if [facility] approves pt today, [facility] is able to accept pt today. GRAHAM placed a call to [facility] with [facility] and left message inquiring about approval from [facility]. GRAHAM checked [facility] website, no determination has been made yet. Original Note: Social Work Note GRAHAM faxed updated clinicals to [facility]. Plan: [facility] pending pre-cert and approval from [facility] CAR WRECKER, SIDE PANEL HANGER
--- NOTE | 2020-11-26 11:27 | PCM.PN.HOSP ---
Subjective Subjective Patient was seen and examined. No more rectal bleeding. No acute events. Waiting on discharge planning. Objective Data Objective Data Vital Signs: Vital Signs Temp Pulse Resp BP Pulse Ox 98.3 F 98 18 146/92 H 95 11/26/20 08:30 11/26/20 08:30 11/26/20 08:30 11/26/20 08:30 11/26/20 08:30 Oxygen Flow Rate (L/min) 2 Oxygen Delivery Method Room Air Weight: 85.3 kg Body Mass Index (BMI) 31.3 Intake & Output: Intake and Output for Last 24 Hours 11/24/20 11/25/20 11/26/20 23:59 23:59 23:59 Intake Total 350 / 350 1500 / 1500 400 / 400 Output Total 950 / 950 1200 / 1200 450 / 450 Balance -600 / -600 300 / 300 -50 / -50 Lab / Micro Data Result Diagrams: 11/26/20 06:08 11/26/20 06:08 Labs: Laboratory Results - last 24 hr 11/25/20 11/26/20 11/26/20 05:40 06:08 06:08 WBC 6.4 RBC 3.63 L Hgb 10.7 L Hct 33.2 L MCV 91.5 MCH 29.5 MCHC 32.2 RDW Std Deviation 43.7 RDW Coeff of Jordin 12.9 Plt Count 329 MPV 8.1 Immature Gran % (Auto) 0.800 Neut % (Auto) 55.7 Lymph % (Auto) 30.7 [place] % (Auto) 8.1 Eos % (Auto) 4.2 Baso % (Auto) 0.5 Absolute Neuts (auto) 3.6 Absolute Lymphs (auto) 1.97 Nucleated RBC % 0 Sodium 135 L Potassium 3.9 Chloride 100 Carbon Dioxide 29.0 Anion Gap 6 BUN 14 Creatinine 0.44 L Estim Creat Clear Calc 46.43 Est GFR (MDRD) Af Amer 184 Est GFR (MDRD) Non-Af 152 BUN/Creatinine Ratio 32.2 H Glucose 158 H Calcium 8.2 L Iron 71 TIBC 251 Iron Saturation 28.3 Ferritin 111 Total Bilirubin 0.20 AST 15 ALT 14 Alkaline Phosphatase 70 Total Protein 6.0 L Albumin 2.3 L Globulin 3.7 Albumin/Globulin Ratio 0.6 L Physical Exam Narrative Physical exam: General: Alert, Oriented x3, Cooperative, No apparent distress, Well developed HEENT: Atraumatic Oral: Moist Mucosa Neck: Supple Lungs: Clear to auscultation Cardiovascular: HS I+II, regular, no murmurs Abdomen: Bowel Sounds Present, Soft, Non Tender Extremities: Left foot is swollen, edema +1 Assessment & Plan Assessment/Plan (1) Bleeding external hemorrhoids: (2) Adult failure to thrive: (3) Acute lower gastrointestinal hemorrhage: (4) Left foot pain: PLAN: 1. Acute lower GI bleeding likely secondary to hemorrhoids; appears to be resolved Hemoglobin is stable at 10.7; will continue to monitor 2. Microcytic microchromic anemia, likely secondary to chronic blood loss from hemorrhoids Continue on oral iron with stool softners 3. Left foot pain, status post fall, x-ray of the left ankle show small chronic avulsion fracture of the medial malleolus 4. Rest of chronic medical conditions complicates care and are stable for now?chronic respiratory failure, COPD, anxiety/depression, seizure disorder, restless leg syndrome, hypertension, hypothyroidism Home medications reviewed 5. Disposition: Awaiting discharge to [facility] facility Charges/Coding Visit Charges Inpatient E&M: 60638 Subs Hosp L2
--- NOTE | 2020-11-26 12:02 | PCM.TXEXTCAR ---
Diet 11/22/20 20:48 Diet: Regular - General Food consistency:: Regular Liquid Consistency:: Regular/Thin Routine Orders/Code Status O2 Liters per Minute: 2 O2 Frequency: Continuous Keep PO Greater than or Equal to (%): 94 Routine Lab Work: CBC (within 3 days) and BMP (within 3 days) Therapies Weight Bearing: Weight bearing as tolerated Physical Therapy: Eval and Treat Occupational Therapy: Eval and Treat Problem/Diagnosis (1) Bleeding external hemorrhoids: Status: Acute (2) Adult failure to thrive: Status: Acute (3) Acute lower gastrointestinal hemorrhage: Status: Acute (4) Left foot pain: Status: Acute Allergies/Procedures Done in Hospital Allergies codeine Allergy (Mild, Verified 11/22/20 16:58) HIVES Penicillins Allergy (Verified 11/22/20 16:58) Anaphylaxis Procedures: None Type of Care/Length of Stay Estimated LOS: Convalescent Care Less Than 30 days Type of Care Needed: Skilled Rehab Potential: Good Prognosis: Good Additional Orders/Day of Discharge Day of Discharge: 11/27/20 Follow Up Care Please Follow Up With: Kristnie Cee DPM When: in 2 weeks Discharge Plan Admission Admit Date/Time: 11/22/20 19:35 Attending Provider: Julia Noonan Primary Care Provider: Patel Veliz Chi Consulting Providers: Kristine Cee Instructions Patient Instructions: ED Hemorrhoids Additional Instructions / Restrictions: Bleeding appears to be coming from external hemorrhoids. Use Preparation H at least twice daily. Warm soaks. Call and follow-up with Dr. Lis decker of general surgery to have your hemorrhoids addressed. Return if bleeding is a lot worse. Weight bear as tolerated to left foot with surgical shoe. Use walker for assistance. Elevate left lower extremity at rest as tolerated and continue LIDIA wrap to reduce your limb swelling. Discharge Orders/Prescriptions Prescriptions: No Action Myrbetriq 25 mg tablet extended release 24 hr 25 mg PO BID RF: 0 omeprazole 20 mg capsule,delayed release(DR/EC) 20 mg PO DAILY RF: 0 sennosides-docusate sodium [Senexon-S] 8.6-50 mg tablet 2 tab PO BID RF: 0 calcium carbonate [Oyster Shell Calcium] 500 mg calcium (1,250 mg) tablet 500 mg PO BID RF: 0 fluticasone furoate-vilanterol 100-25 mcg/dose blister with device 2 puff INHALATION DAILY RF: 0 albuterol sulfate [Ventolin HFA] 90 mcg/actuation HFA aerosol inhaler 1 inh INHALATION BID PRN PRN (Reason: COPD) RF: 0 brimonidine 0.15 % drops 1 drp OPHTHALMIC BID RF: 0 benztropine 2 mg tablet 2 mg PO BID Qty: 60 RF: 3 oxcarbazepine 600 mg tablet 600 mg PO BID Qty: 60 RF: 3 phenobarbital 32.4 mg tablet 32.4 mg PO BID Qty: 60 RF: 3 risperidone 0.25 MG tablet 0.25 mg PO QHS RF: 0 aspirin 81 MG tablet,delayed release (DR/EC) 81 mg PO 1200 RF: 0 potassium chloride 20 MEQ tablet 20 meq PO BID RF: 0 levothyroxine 50 MCG tablet 50 mcg PO DAILY RF: 0 duloxetine 20 MG capsule,delayed release(DR/EC) 20 mg PO DAILY RF: 0 mirtazapine 7.5 mg tablet 7.5 mg PO QHS RF: 0 ropinirole 2 MG tablet 2 mg PO QHS RF: 0 nicotine 21 mg/24 hr patch 24 hour 1 patch TOPICAL DAILY RF: 0 latanoprost (PF) 7.5 ML drops 1 drp EACHEYE QHS RF: 0 acetaminophen 325 MG tablet 650 mg PO Q6H PRN PRN (Reason: Pain Score 1-10/Temp > 100.7 F) RF: 0 multivitamin Tablet 1 tab PO 1200 RF: 0 temazepam 30 mg Capsule 30 mg PO QHS PRN (Reason: Sleep) RF: 0 cholecalciferol (vitamin D3) 1,250 mcg (50,000 unit) capsule 1,250 mcg PO WE RF: 0 methadone 10 mg tablet 10 mg PO TID 5 Days Qty: 15 RF: 0 Referrals / Follow Up: Kristine Cee DPM [STAFF PHYSICIAN] - None (Follow up within 3 weeks. ) Patel Veliz Chi, MD [Primary Care Provider] - Laina Potter MD [STAFF PHYSICIAN] - As soon as possible
[2020-11-26] MEDS: Ferrous Sulfate 325 MG Tablet PO ×2 (12:35→16:31)
[2020-11-26 15:00] VITALS: BP 136/59; PULSE 83; RESP 18; TEMP 36.9; O2SAT 97
[2020-11-26 21:49] VITALS: BP 108/68; PULSE 91; RESP 18; TEMP 37.6; O2SAT 95
[2020-11-26] MEDS: Latanoprost 0.005% 1 Bottle 1 DRP OPHTHALMIC (21:55)
[2020-11-26] MEDS: Mirtazapine 15 MG Tablet 7.5 MG PO (21:57)
[2020-11-26] MEDS: Temazepam 15 MG Capsule 30 MG PO (21:57)
[2020-11-26] MEDS: Pramipexole Di-HCl 1 MG Tablet PO (21:58)
[2020-11-27 03:54] VITALS: BP 128/75; PULSE 88; RESP 18; TEMP 36.7; O2SAT 99
[2020-11-27] MEDS: Levothyroxine 50 MCG Tablet PO (05:24)
[2020-11-27] MEDS: Methadone 10 MG Tablet PO ×3 (05:24→21:10)
[2020-11-27 08:38] VITALS: BP 135/75; PULSE 90; RESP 18; TEMP 36.8
--- NOTE | 2020-11-27 10:10 | CASEMGMT ---
Social Work Note GRAHAM placed a call to [facility] at [facility] stating she submitted the assessment on Tuesday, unable to tell this worker any updates. [facility] suggested that this worker call [facility]'s main number ([phone]). GRAHAM placed a call to [facility], no answer, SW left message requesting update. Cheyanne Cee MEASUREMENT SPECIALIST, GASOLINE CATALYST OPERATOR
[2020-11-27 10:30] VITALS: O2SAT 97
[2020-11-27] MEDS: BRIMONIDINE 0.15% 5 ML Bottle 1 DRP OPHTHALMIC ×2 (10:41→21:06)
--- NOTE | 2020-11-27 10:41 | CASEMGMT ---
Addendum entered by Cheyanne Cee 11/27/20 14:30: GRAHAM received call from Yana at [facility] stating pre-cert was obtained. Pre-cert is good until the 16. SW checked [employer] website, no determination has been made. Addendum entered by Cheyanne Cee 11/27/20 13:34: SW checked [employer], no determination has been made. Original Note: Social Work Note SW received message from [employer] stating pt's assessment is in the que for review. It is a regular PAS/RR and PAS/RR results can take 3-5 business days for results. Cheyanne Cee LINING SETTER, PRECISION ASSEMBLER BENCH
[2020-11-27] MEDS: DULoxetine Hcl 20 MG Capsule PO (10:42)
[2020-11-27] MEDS: Benztropine 2 MG Tablet PO ×2 (10:42→21:10)
[2020-11-27] MEDS: Phenobarbital 32.4 MG Tablet PO ×2 (10:43→21:09)
[2020-11-27] MEDS: Pantoprazole Sodium 20 MG Tablet PO (10:43)
[2020-11-27] MEDS: Mirabegron 25 MG TAB.ER.24H PO ×2 (10:43→21:10)
[2020-11-27] MEDS: Potassium Chloride Oral Tablet 20 MEQ PO ×2 (10:43→21:10)
[2020-11-27] MEDS: Polyethylene Glycol 3350 17 GM PACKET PO (10:43)
[2020-11-27] MEDS: RisperiDONE 0.25 MG Tablet PO (10:44)
[2020-11-27] MEDS: OXcarbazepine 600 MG Tablet PO ×2 (10:44→21:10)
[2020-11-27] MEDS: Heparin Injection (Vial) 5,000 UNIT/ML VIAL 5000 UNIT SC ×2 (10:45→21:08)
[2020-11-27] MEDS: Senna/Docusate Sodium 1 Tablet 2 TABLET PO (10:49)
[2020-11-27] MEDS: Ferrous Sulfate 325 MG Tablet PO ×2 (12:33→17:19)
[2020-11-27 13:40] VITALS: BP 117/74; PULSE 90; RESP 18; TEMP 37; O2SAT 95
--- NOTE | 2020-11-27 15:12 | PCM.PN.HOSP ---
Subjective Subjective Patient was seen and examined. Denied new complaints. Still waiting on discharge Objective Data Objective Data Vital Signs: Vital Signs Temp Pulse Resp BP Pulse Ox 98.6 F 90 18 117/74 95 11/27/20 13:40 11/27/20 13:40 11/27/20 13:40 11/27/20 13:40 11/27/20 13:40 Oxygen Flow Rate (L/min) 2 Oxygen Delivery Method Nasal Cannula Weight: 85.3 kg Body Mass Index (BMI) 31.3 Intake & Output: Intake and Output for Last 24 Hours 11/25/20 11/26/20 11/27/20 23:59 23:59 23:59 Intake Total 1500 / 1500 750 / 750 150 / 150 Output Total 1200 / 1200 450 / 450 250 / 250 Balance 300 / 300 300 / 300 -100 / -100 Lab / Micro Data Result Diagrams: 11/26/20 06:08 11/26/20 06:08 Physical Exam Narrative Physical exam: General: Alert, Oriented x3, Cooperative, No apparent distress, Well developed HEENT: Atraumatic Oral: Moist Mucosa Neck: Supple Lungs: Clear to auscultation Cardiovascular: HS I+II, regular, no murmurs Abdomen: Bowel Sounds Present, Soft, Non Tender Extremities: Left foot is swollen, edema +1 Assessment & Plan Assessment/Plan (1) Bleeding external hemorrhoids: (2) Adult failure to thrive: (3) Acute lower gastrointestinal hemorrhage: (4) Left foot pain: PLAN: 1. Acute lower GI bleeding likely secondary to hemorrhoids; appears to be resolved Continue to monitor 2. Microcytic microchromic anemia, likely secondary to chronic blood loss from hemorrhoids Continue on oral iron with stool softners 3. Left foot pain, status post fall, x-ray of the left ankle show small chronic avulsion fracture of the medial malleolus 4. Rest of chronic medical conditions complicates care and are stable for now?chronic respiratory failure, COPD, anxiety/depression, seizure disorder, restless leg syndrome, hypertension, hypothyroidism Home medications reviewed 5. Disposition: Awaiting discharge to [facility] facility Charges/Coding Visit Charges Inpatient E&M: 22906 Subs Hosp L2
[2020-11-27 18:50] VITALS: BP 112/90; PULSE 82; RESP 16; TEMP 37.1; O2SAT 94
[2020-11-27] MEDS: Mag Hydrox/Al Hydrox/Simeth 30 ML UDC 15 ML PO (20:03)
[2020-11-27 20:38] VITALS: BP 146/81; PULSE 93; RESP 16; TEMP 37.6; O2SAT 99
[2020-11-27] MEDS: Latanoprost 0.005% 1 Bottle 1 DRP OPHTHALMIC (21:06)
[2020-11-27] MEDS: Mirtazapine 15 MG Tablet 7.5 MG PO (21:10)
[2020-11-27] MEDS: Pramipexole Di-HCl 1 MG Tablet PO (21:10)
[2020-11-27] MEDS: Temazepam 15 MG Capsule 30 MG PO (22:44)
[2020-11-28 03:52] VITALS: BP 115/63; PULSE 75; RESP 16; TEMP 36.6; O2SAT 99
[2020-11-28] MEDS: Levothyroxine 50 MCG Tablet PO (05:51)
[2020-11-28] MEDS: Methadone 10 MG Tablet PO ×3 (05:51→20:38)
[2020-11-28] MEDS: 0.9% Saline Lock 10 ML Syringe IV ×2 (05:53→20:48)
[2020-11-28 07:15] VITALS: O2SAT 96
[2020-11-28 08:24] VITALS: BP 107/44; PULSE 68; RESP 18; TEMP 36.8; O2SAT 98
[2020-11-28] MEDS: Heparin Injection (Vial) 5,000 UNIT/ML VIAL 5000 UNIT SC ×2 (08:46→20:26)
[2020-11-28] MEDS: OXcarbazepine 600 MG Tablet PO ×2 (08:47→20:27)
[2020-11-28] MEDS: Potassium Chloride Oral Tablet 20 MEQ PO ×2 (08:47→20:25)
[2020-11-28] MEDS: RisperiDONE 0.25 MG Tablet PO (08:48)
[2020-11-28] MEDS: Pantoprazole Sodium 20 MG Tablet PO (08:49)
[2020-11-28] MEDS: Polyethylene Glycol 3350 17 GM PACKET PO (08:49)
[2020-11-28] MEDS: Mirabegron 25 MG TAB.ER.24H PO ×2 (08:49→20:26)
[2020-11-28] MEDS: DULoxetine Hcl 20 MG Capsule PO (08:49)
[2020-11-28] MEDS: Benztropine 2 MG Tablet PO ×2 (08:49→20:28)
[2020-11-28] MEDS: BRIMONIDINE 0.15% 5 ML Bottle 1 DRP OPHTHALMIC ×2 (08:50→20:24)
[2020-11-28] MEDS: Senna/Docusate Sodium 1 Tablet 2 TABLET PO (08:59)
[2020-11-28] MEDS: Phenobarbital 32.4 MG Tablet PO ×2 (08:59→20:37)
[2020-11-28 10:00] VITALS: O2SAT 2
--- NOTE | 2020-11-28 10:16 | PN_ITS ---
Subjective Subjective This 70-year-old female was seen bedside this morning for follow-up of left foot pain with suspected sprain. Her foot pain is rated as very mild this morning. She has been working with physical therapy and uses a walker. She reports reduction in pain and swelling. She has an Palmer wrap in place. She asks for hel p trimming her toenails. She denies new injuries. Objective Data Objective Data Vital Signs: Vital Signs Temp Pulse Resp BP Pulse Ox 98.2 F 68 18 107/44 L 98 11/28/20 08:24 11/28/20 08:24 11/28/20 08:24 11/28/20 08:24 11/28/20 08:24 Oxygen Flow Rate (L/min) 2 Oxygen Delivery Method Nasal Cannula Weight: 85.3 kg Body Mass Index (BMI) 31.3 Intake & Output: Intake and Output for Last 24 Hours 11/26/20 11/27/20 11/28/20 23:59 23:59 23:59 Intake Total 750 / 750 990 / 990 100 / 100 Output Total 450 / 450 450 / 450 150 / 150 Balance 300 / 300 540 / 540 -50 / -50 Lab / Micro Data Result Diagrams: 11/26/20 06:08 11/26/20 06:08 Physical Exam Const alert and oriented x3 General Appearance: cooperative HEENT normocephalic Extremity Extremity Narrative: No calf tenderness Diminished pulses but palpable bilateral pt and dp Muscle wasting noted She has resolution of palpation pain to the midfoot and forefoot and ankle. She did not have pain with palpation to the medial lateral malleolus. She has reduced pain on palpation to the sinus tarsi and with passive inversion eversion. There is no pain with passive sagittal plane range of motion of the ankle or digits, left There is also resolved manipulation discomfort to the midfoot Compartments remain soft to palpate Edema left lower extremity reduced and Palmer wrap is in place General Extremity: edema; Negative for cyanosis Skin Skin Narrative: no purulence, no streaking, no odor, no infection. No ecchymosis, necrosis, bogginess, ulcer bilateral General Skin Exam: Negative for erythema Neuro Neuro Narrative: lack of normal epicritic sensation via light touch is consistent with neuropathy status Psych cooperative and affect normal Assessment & Plan Assessment/Plan (1) Left foot pain: (2) Left ankle pain: (3) Walking difficulty due to ankle and foot: (4) Sprain of foot, left: (5) Edema, lower extremity: PLAN: I reviewed and discussed her plan including diagnostic data. Vitals are stable and she is afebrile. Foot and ankle x-rays were previously reviewed. Clinically her discomfort is primarily around the sinus tarsi area and I recommend continuation of treatment for foot sprain with walking difficulty. To weight-bear as tolerated in surgical shoe with walker for assistance. I reviewed her case previously with her physical therapist and she is doing much better after therapy sessions. Her pain is reduced and she is advised to continue with activity as tolerated. To elevate at rest. Palmer wrap applied as recommended to reduce edema. Her other comorbidities and medical management are noted. She will be discharged after placement is confirmed. [facility] in about 3 weeks. Discharge recommend ations were placed electronically. At her follow-up visit her toenails will be debrided as well per her request when appropriate instrumentation is available. Please do not hesitate to have you have any questions. Kristine Cee DPM, FACFAS [facility] [phone]
--- NOTE | 2020-11-28 10:30 | CASEMGMT ---
Addendum entered by Cheyanne Cee 11/28/20 16:03: Pt needs approval from [facility] before pt can discharge to SNF. Addendum entered by Cheyanne Cee 11/28/20 15:49: SW checked [email or web address] website, no determination has been made from [facility]. SW in to speak with pt. SW informed pt that pre-cert has been obtained but pt has to stay at [facility] until results from [facility] are obtained. Pt states understanding. GRAHAM placed a call to Yana at [facility] and left message that results from [facility] are still pending. [facility] has already told this worker that they will only provide results on business days so if results are not obtained today, pt will be at [facility] through the weekend. Original Note: Social Work Note GRAHAM checked [email or web address] website, no determination has been made from [facility]. Cheyanne Cee [employer]ESS [employer], [employer]
[2020-11-28] MEDS: Ferrous Sulfate 325 MG Tablet PO ×2 (13:04→18:49)
--- NOTE | 2020-11-28 15:32 | PN.HOSP_ITS ---
Subjective Subjective No new complaints. Waiting on discharge. Objective Data Objective Data Vital Signs: Vital Signs Temp Pulse Resp BP Pulse Ox 98.2 F 68 18 107/44 L 2 11/28/20 08:24 11/28/20 08:24 11/28/20 08:24 11/28/20 08:24 11/28/20 10:00 Oxygen Flow Rate (L/min) 2 Oxygen Delivery Method Nasal Cannula Weight: 85.3 kg Body Mass Index (BMI) 31.3 Intake & Output: Intake and Output for Last 24 Hours 11/26/20 11/27/20 11/28/20 23:59 23:59 23:59 Intake Total 750 / 750 990 / 990 100 / 100 Output Total 450 / 450 450 / 450 150 / 150 Balance 300 / 300 540 / 540 -50 / -50 Lab / Micro Data Result Diagrams: 11/26/20 06:08 11/26/20 06:08 Physical Exam Narrative Physical exam: General: Alert, Oriented x3, Cooperative, No apparent distress, Well developed HEENT: Atraumatic Oral: Moist Mucosa Neck: Supple Lungs: Clear to auscultation Cardiovascular: HS I+II, regular, no murmurs Abdomen: Bowel Sounds Present, Soft, Non Tender Extremities: Left foot is swollen, edema +1 Assessment & Plan Assessment/Plan (1) Bleeding external hemorrhoids: (2) Adult failure to thrive: (3) Acute lower gastrointestinal hemorrhage: (4) Left foot pain: PLAN: 1. Acute lower GI bleeding likely secondary to hemorrhoids; appears to be resolved Continue to monitor 2. Microcytic microchromic anemia, likely secondary to chronic blood loss from hemorrhoids Continue on oral iron with stool softners 3. Left foot pain, status post fall, x-ray of the left ankle show small chronic avulsion fracture of the medial malleolus 4. Rest of chronic medical conditions complicates care and are stable for now?chronic respiratory failure, COPD, anxiety/depression, seizure disorder, restless leg syndrome, hypertension, hypothyroidism Home medications reviewed 5. Disposition: Awaiting discharge to residential facility Charges/Coding Visit Charges Inpatient E&M: 59414 Subs Hosp L1
[2020-11-28 15:39] VITALS: BP 108/64; PULSE 95; RESP 18; TEMP 37.1; O2SAT 96
[2020-11-28 20:23] VITALS: BP 108/70; PULSE 94; RESP 16; TEMP 37.5; O2SAT 96
[2020-11-28] MEDS: Pramipexole Di-HCl 1 MG Tablet PO (20:25)
[2020-11-28] MEDS: Latanoprost 0.005% 1 Bottle 1 DRP OPHTHALMIC (20:27)
[2020-11-28] MEDS: Mirtazapine 15 MG Tablet 7.5 MG PO (20:27)
[2020-11-28] MEDS: Temazepam 15 MG Capsule 30 MG PO (20:38)
[2020-11-29 02:46] VITALS: BP 114/62; PULSE 85; RESP 16; TEMP 37.1; O2SAT 99
[2020-11-29] MEDS: Methadone 10 MG Tablet PO ×3 (05:28→20:18)
[2020-11-29] MEDS: Levothyroxine 50 MCG Tablet PO (05:28)
[2020-11-29 07:27] LABS: Absolute Lymphocyte Count 1.82 X10^3/uL (0.83-4.51); Absolute Neutrophil Count 3.3 X10^3/uL (2.0-7.7); Basophil# 0.03 X10^3/uL; Basophil% 0.5 % (0-1); Eosinophil# 0.27 X10^3/uL; Eosinophils% 4.4 % (0-5); Hematocrit 32.4 % (37-47); Hemoglobin 10.2 g/dL (12.0-15.0); Lymphocyte # 1.82 X10^3/ul (0.83-4.51); Lymphocyte % 29.9 % (19-41); Mean Corp Hgb Conc 31.5 g/dL (32-36); Mean Corpuscular Hgb 29.4 pg (27.0-32.0); Mean Corpuscular Volume 93.4 fL (81-99); Mean Platelet Vol. 9.1 fl (6.2-12.0); Monocyte# 0.64 X10^3/uL; Monocyte% 10.5 % (0-10); NRBC Flagged by Analyzer 0 % (0-5); Neutrophil # 3.25 X10^3/uL (2.7-7.7); Neutrophil % 53.4 % (47-70); Platelet Count 410 K/mm3 (150-450); RBC Distribution Width CV 13.2 % (11.6-14.6); RBC Distribution Width SD 44.4 fl (35.1-43.9); Red Blood Count 3.47 M/mm3 (4.2-5.4); White Blood Count 6.1 K/mm3 (4.4-11.0)
[2020-11-29 07:43] LABS: ALB/GLOB Ratio 0.7 RATIO (0.9-2.4); AST(SGOT) 25 U/L (15-37); Alanine Aminotransfer ALT/SGPT 18 U/L (13-56); Albumin, Serum 2.4 g/dL (3.2-5.0); Alkaline Phosphatase 69 U/L (45-117); Anion Gap 3 (5-15); BUN 12 mg/dL (7-18); BUN/Creat Ratio 27.4 RATIO (10-20); Calcium,Total 8.7 mg/dL (8.5-10.1); Chloride 100 mmol/L (98-107); Creatinine, Serum 0.44 mg/dL (0.55-1.02); EST Glomerular Filtration Rate 151 mL/min (>60); Est Glom Filt Rate - Afr Amer 182 mL/min (>60); Estimated Creatinine Clearance 46.43 ml/min; Globulin 3.6 g/dL (2.2-4.2); Glucose 153 mg/dL (74-106); Potassium 4.2 mmol/L (3.5-5.1); Sodium Level 133 mmol/L (136-145)
[2020-11-29 09:00] VITALS: BP 116/68; PULSE 90; RESP 18; TEMP 36.9; O2SAT 96
[2020-11-29] MEDS: BRIMONIDINE 0.15% 5 ML Bottle 1 DRP OPHTHALMIC ×2 (09:11→20:07)
[2020-11-29] MEDS: Heparin Injection (Vial) 5,000 UNIT/ML VIAL 5000 UNIT SC ×2 (09:11→20:19)
[2020-11-29] MEDS: RisperiDONE 0.25 MG Tablet PO (09:12)
[2020-11-29] MEDS: Pantoprazole Sodium 20 MG Tablet PO (09:12)
[2020-11-29] MEDS: Phenobarbital 32.4 MG Tablet PO ×2 (09:12→20:18)
[2020-11-29] MEDS: Polyethylene Glycol 3350 17 GM PACKET PO (09:12)
[2020-11-29] MEDS: Potassium Chloride Oral Tablet 20 MEQ PO ×2 (09:12→20:10)
[2020-11-29] MEDS: Senna/Docusate Sodium 1 Tablet 2 TABLET PO (09:12)
[2020-11-29] MEDS: Acetaminophen 325 MG Tablet 650 MG PO (09:12)
[2020-11-29] MEDS: OXcarbazepine 600 MG Tablet PO ×2 (09:13→20:13)
[2020-11-29] MEDS: Mirabegron 25 MG TAB.ER.24H PO ×2 (09:13→20:11)
[2020-11-29] MEDS: DULoxetine Hcl 20 MG Capsule PO (09:14)
[2020-11-29] MEDS: Benztropine 2 MG Tablet PO ×2 (09:14→20:14)
--- NOTE | 2020-11-29 09:55 | PN.HOSP_ITS ---
Subjective Subjective Patient was seen and examined. No new complaint. Patient likely be here over the weekend waiting on discharge. Objective Data Objective Data Vital Signs: Vital Signs Temp Pulse Resp BP Pulse Ox 98.4 F 90 18 116/68 96 11/29/20 09:00 11/29/20 09:00 11/29/20 09:00 11/29/20 09:00 11/29/20 09:00 Oxygen Flow Rate (L/min) 2 Oxygen Delivery Method Room Air Weight: 85.3 kg Body Mass Index (BMI) 31.3 Intake & Output: Intake and Output for Last 24 Hours 11/27/20 11/28/20 11/29/20 23:59 23:59 23:59 Intake Total 990 / 990 700 / 950 250 / 250 Output Total 450 / 450 500 / 500 Balance 540 / 540 200 / 450 250 / 250 Lab / Micro Data Result Diagrams: 11/29/20 06:42 11/29/20 06:42 Labs: Laboratory Results - last 24 hr 11/29/20 11/29/20 06:42 06:42 WBC 6.1 RBC 3.47 L Hgb 10.2 L Hct 32.4 L MCV 93.4 MCH 29.4 MCHC 31.5 L RDW Std Deviation 44.4 H RDW Coeff of Jordin 13.2 Plt Count 410 MPV 9.1 Immature Gran % (Auto) 1.300 H Neut % (Auto) 53.4 Lymph % (Auto) 29.9 Barnwell % (Auto) 10.5 H Eos % (Auto) 4.4 Baso % (Auto) 0.5 Absolute Neuts (auto) 3.3 Absolute Lymphs (auto) 1.82 Nucleated RBC % 0 Sodium 133 L Potassium 4.2 Chloride 100 Carbon Dioxide 30.0 Anion Gap 3 L BUN 12 Creatinine 0.44 L Estim Creat Clear Calc 46.43 Est GFR (MDRD) Af Amer 182 Est GFR (MDRD) Non-Af 151 BUN/Creatinine Ratio 27.4 H Glucose 153 H Calcium 8.7 Total Bilirubin 0.30 AST 25 ALT 18 Alkaline Phosphatase 69 Total Protein 6.0 L Albumin 2.4 L Globulin 3.6 Albumin/Globulin Ratio 0.7 L Physical Exam Narrative Physical exam: General: Alert, Oriented x3, Cooperative, No apparent distress, Well developed HEENT: Atraumatic Oral: Moist Mucosa Neck: Supple Lungs: Clear to auscultation Cardiovascular: HS I+II, regular, no murmurs Abdomen: Bowel Sounds Present, Soft, Non Tender Extremities: Left foot is swollen, edema +1 Assessment & Plan Assessment/Plan (1) Bleeding external hemorrhoids: (2) Adult failure to thrive: (3) Acute lower gastrointestinal hemorrhage: (4) Left foot pain: PLAN: 1. Acute lower GI bleeding likely secondary to hemorrhoids, resolved Continue to monitor 2. Microcytic microchromic anemia, likely secondary to chronic blood loss from hemorrhoids Continue on oral iron with stool softners 3. Left foot pain, status post fall, x-ray of the left ankle show small chronic avulsion fracture of the medial malleolus Continue with pain control 4. Rest of chronic medical conditions complicates care and are stable for now?chronic respiratory failure, COPD, anxiety/depression, seizure disorder, restless leg syndrome, hypertension, hypothyroidism Home medications reviewed 5. Disposition: Awaiting discharge to care home facility Charges/Coding Visit Charges Inpatient E&M: 29142 Subs Hosp L1
[2020-11-29] MEDS: Ferrous Sulfate 325 MG Tablet PO ×2 (12:42→17:21)
[2020-11-29 15:35] VITALS: BP 123/74; PULSE 89; RESP 18; TEMP 36.8; O2SAT 94
[2020-11-29] MEDS: Mirtazapine 15 MG Tablet 7.5 MG PO (20:10)
[2020-11-29] MEDS: Pramipexole Di-HCl 1 MG Tablet PO (20:11)
[2020-11-29] MEDS: Latanoprost 0.005% 1 Bottle 1 DRP OPHTHALMIC (20:13)
[2020-11-29 20:15] VITALS: BP 137/79; PULSE 104; RESP 20; TEMP 37.9; O2SAT 99
[2020-11-30 02:50] VITALS: BP 119/68; PULSE 78; RESP 18; TEMP 36.9; O2SAT 97
[2020-11-30] MEDS: Polyethylene Glycol 3350 17 GM PACKET PO (05:55)
[2020-11-30] MEDS: BRIMONIDINE 0.15% 5 ML Bottle 1 DRP OPHTHALMIC ×2 (05:55→20:25)
[2020-11-30] MEDS: DULoxetine Hcl 20 MG Capsule PO (05:56)
[2020-11-30] MEDS: RisperiDONE 0.25 MG Tablet PO (05:56)
[2020-11-30] MEDS: Phenobarbital 32.4 MG Tablet PO ×2 (05:56→20:27)
[2020-11-30] MEDS: Benztropine 2 MG Tablet PO ×2 (05:56→20:26)
[2020-11-30] MEDS: Senna/Docusate Sodium 1 Tablet 2 TABLET PO (05:56)
[2020-11-30] MEDS: Methadone 10 MG Tablet PO ×3 (05:57→20:29)
[2020-11-30] MEDS: Potassium Chloride Oral Tablet 20 MEQ PO ×2 (05:57→20:26)
[2020-11-30] MEDS: Levothyroxine 50 MCG Tablet PO (05:57)
[2020-11-30] MEDS: Pantoprazole Sodium 20 MG Tablet PO (05:57)
[2020-11-30] MEDS: Mirabegron 25 MG TAB.ER.24H PO ×2 (05:57→20:27)
[2020-11-30] MEDS: OXcarbazepine 600 MG Tablet PO ×2 (05:58→20:29)
--- NOTE | 2020-11-30 08:44 | PN.HOSP_ITS ---
Subjective Subjective Patient was seen and examined. No new complaints. [facility] to [facility] facility. No rectal bleeding seen. Objective Data Objective Data Vital Signs: Vital Signs Temp Pulse Resp BP Pulse Ox 98.4 F 78 18 119/68 97 11/30/20 02:50 11/30/20 02:50 11/30/20 02:50 11/30/20 02:50 11/30/20 02:50 Oxygen Flow Rate (L/min) 2 Oxygen Delivery Method Room Air Weight: 85.3 kg Body Mass Index (BMI) 31.3 Intake & Output: Intake and Output for Last 24 Hours 11/28/20 11/29/20 11/30/20 23:59 23:59 23:59 Intake Total 700 / 950 490 / 490 240 / 240 Output Total 500 / 500 350 / 350 Balance 200 / 450 490 / 490 -110 / -110 Lab / Micro Data Result Diagrams: 11/29/20 06:42 11/29/20 06:42 Physical Exam Narrative Physical exam: General: Alert, Oriented x3, Cooperative, No apparent distress, Well developed HEENT: Atraumatic Oral: Moist Mucosa Neck: Supple Lungs: Clear to auscultation Cardiovascular: HS I+II, regular, no murmurs Abdomen: Bowel Sounds Present, Soft, Non Tender Extremities: Left foot is swollen, edema +1, wrapped up in Palmer bandages Assessment & Plan Assessment/Plan (1) Bleeding external hemorrhoids: (2) Adult failure to thrive: (3) Acute lower gastrointestinal hemorrhage: (4) Left foot pain: PLAN: Summary: 70-year-old female who was admitted on 11/22/20 with rectal bleeding and generalized weakness. She was [facility] from detention facility prior to admission. There has been no evidence of active bleeding in this admission. Her hemoglobin has remained stable. Waiting on pre-CERT for discharge to detention facility. 1. Acute lower GI bleeding likely secondary to hemorrhoids, resolved 2. Microcytic microchromic anemia, likely secondary to chronic blood loss from hemorrhoids Continue on oral iron with stool softners 3. Left foot pain, status post fall, x-ray of the left ankle show small chronic avulsion fracture of the medial malleolus Continue with pain control 4. Rest of chronic medical conditions complicates care and are stable for now?chronic respiratory failure, COPD, anxiety/depression, seizure disorder, restless leg syndrome, hypertension, hypothyroidism Home medications reviewed 5. Disposition: Awaiting discharge to detention facility Charges/Coding Visit Charges Inpatient E&M: 28038 Subs Hosp L2
[2020-11-30 09:00] VITALS: BP 125/68; PULSE 83; RESP 20; TEMP 36.9; O2SAT 97
--- NOTE | 2020-11-30 09:10 | PCM.PROGNOTE ---
Subjective Subjective This 70-year-old female was seen bedside this morning. She was previously treated for a left foot sprain. This morning she was seen for long and thick toenails in which she does not feel safe trimming on her own. She asked for help. She has neuropathy with rest paresthesias and intermittent edema that places her at risk for safely trimming these without assistance. Objective Data Objective Data Vital Signs: Vital Signs Temp Pulse Resp BP Pulse Ox 98.4 F 78 18 119/68 97 11/30/20 02:50 11/30/20 02:50 11/30/20 02:50 11/30/20 02:50 11/30/20 02:50 Oxygen Flow Rate (L/min) 2 Oxygen Delivery Method Room Air Weight: 85.3 kg Body Mass Index (BMI) 31.3 Intake & Output: Intake and Output for Last 24 Hours 11/28/20 11/29/20 11/30/20 23:59 23:59 23:59 Intake Total 700 / 950 490 / 490 240 / 240 Output Total 500 / 500 350 / 350 Balance 200 / 450 490 / 490 -110 / -110 Lab / Micro Data Result Diagrams: 11/29/20 06:42 11/29/20 06:42 Physical Exam Const alert and oriented x3 General Appearance: cooperative HEENT normocephalic Extremity normal capillary refill Extremity Narrative: no cyanosis, no calf tenderness, diminished pulses muscle wasting noted. Pain with compression of long dystrophic toenails bilateral 1, 2, 3, 4, 5 Pain to palpate sinus tarsi, left consistent with prior exam Limb edema decreasing with Palmer wrap left General Extremity: edema Skin Skin Narrative: no purulence, no erythema, no streaking, no odor, no infection. Adjacent skin is atrophic Neuro Neuro Narrative: lack of normal epicritic sensation via light touch consistent with neuropathy Assessment & Plan Assessment/Plan (1) Tinea unguium: (2) Other hereditary and idiopathic neuropathies: PLAN: I reviewed the patient's case. The etiology of thickened toenails was briefly reviewed including fungus or microtrauma. The nails were debrided with a nail nipper after verbal consent was obtained without incident (bilateral 1, 2, 3, 4, 5). The nails were debrided in length and thickness to reduce pressure, potential fungal load, and to prevent wound formation. The patient tolerated this well. The patient elects proceed with palliative care only at this time with the nails and will hold off on further work-up. Neuropathy status including her classic neuropathy findings make her higher risk for ulcer development. To follow-up with the [facility] if needed in the future for this condition. To wear protective and supportive shoes. To check feet daily and keep webspaces clean and dry. To moisturize skin to preserve skin integrity was also recommended. Medical management per primary team is noted. Prior foot sprain recommendations were placed; she is doing better. She will follow-up with the [facility] in 3 weeks. Please do not hesitate to call if you have any questions. Kristine Cee DPM, FACFAS [facility] [phone]
[2020-11-30 10:00] VITALS: PULSE 83; RESP 20; O2SAT 92
[2020-11-30] MEDS: Heparin Injection (Vial) 5,000 UNIT/ML VIAL 5000 UNIT SC ×2 (10:16→20:30)
[2020-11-30] MEDS: Acetaminophen 325 MG Tablet 650 MG PO ×2 (10:18→18:00)
[2020-11-30] MEDS: Ferrous Sulfate 325 MG Tablet PO ×2 (13:29→17:49)
[2020-11-30] MEDS: Glycerin/Hypromellose/PEG400 15 ml Bottle 2 DRP EACH EYE (13:31)
[2020-11-30 15:00] VITALS: BP 124/48; PULSE 80; RESP 20; TEMP 36.8; O2SAT 98
[2020-11-30 16:00] VITALS: PULSE 80
[2020-11-30 20:22] VITALS: BP 146/73; PULSE 88; RESP 20; TEMP 37.2; O2SAT 92
[2020-11-30] MEDS: Mirtazapine 15 MG Tablet 7.5 MG PO (20:27)
[2020-11-30] MEDS: Pramipexole Di-HCl 1 MG Tablet PO (20:27)
[2020-11-30] MEDS: Temazepam 15 MG Capsule 30 MG PO (20:28)
[2020-11-30] MEDS: Latanoprost 0.005% 1 Bottle 1 DRP OPHTHALMIC (20:29)
[2020-11-30] MEDS: 0.9% Saline Lock 10 ML Syringe IV (20:30)
[2020-12-01 03:18] VITALS: BP 122/62; PULSE 66; RESP 16; TEMP 36.6; O2SAT 100
[2020-12-01 03:22] VITALS: RESP 16
[2020-12-01] MEDS: DULoxetine Hcl 20 MG Capsule PO (06:12)
[2020-12-01] MEDS: Mirabegron 25 MG TAB.ER.24H PO ×2 (06:12→20:13)
[2020-12-01] MEDS: Potassium Chloride Oral Tablet 20 MEQ PO ×2 (06:13→20:15)
[2020-12-01] MEDS: Levothyroxine 50 MCG Tablet PO (06:13)
[2020-12-01] MEDS: Benztropine 2 MG Tablet PO ×2 (06:13→20:14)
[2020-12-01] MEDS: OXcarbazepine 600 MG Tablet PO ×2 (06:14→20:13)
[2020-12-01] MEDS: RisperiDONE 0.25 MG Tablet PO (06:14)
[2020-12-01] MEDS: Methadone 10 MG Tablet PO ×3 (06:15→20:12)
[2020-12-01] MEDS: Senna/Docusate Sodium 1 Tablet 2 TABLET PO (06:15)
[2020-12-01] MEDS: Phenobarbital 32.4 MG Tablet PO ×2 (06:15→20:12)
[2020-12-01] MEDS: BRIMONIDINE 0.15% 5 ML Bottle 1 DRP OPHTHALMIC ×2 (06:16→20:11)
[2020-12-01] MEDS: Polyethylene Glycol 3350 17 GM PACKET PO (06:20)
--- NOTE | 2020-12-01 06:23 | NURSING ---
Patient refused seizure pads. (Patient has history of seizures.)
[2020-12-01] MEDS: Pantoprazole Sodium 20 MG Tablet PO (06:26)
[2020-12-01 08:06] VITALS: O2SAT 98
[2020-12-01] MEDS: Heparin Injection (Vial) 5,000 UNIT/ML VIAL 5000 UNIT SC ×2 (09:20→20:12)
[2020-12-01] MEDS: Acetaminophen 325 MG Tablet 650 MG PO ×2 (09:30→17:43)
[2020-12-01 09:54] VITALS: BP 105/64; PULSE 86; RESP 16; TEMP 36.6; O2SAT 94
--- NOTE | 2020-12-01 10:04 | CASEMGMT ---
Addendum entered by Lina Fairchild 12/01/20 14:03: SW did call Yana at [facility] to let her know that we are still waiting for [facility] to make their determination, SW let pt know as well. SW will continue to follow. CRISTIANO Moreira Original Note: GRAHAM called [facility], pt's information is still in que for review. SW will continue to follow. CRISTIANO Moreira
[2020-12-01] MEDS: Ferrous Sulfate 325 MG Tablet PO ×2 (12:07→17:41)
[2020-12-01 14:00] VITALS: BP 115/61; PULSE 80; RESP 16; TEMP 36.8; O2SAT 100
--- NOTE | 2020-12-01 15:37 | PN.HOSP_ITS ---
Subjective Subjective Patient seen and examined. She feels well and has no complaints today. Review of systems otherwise negative. She has remained hemodynamically stable. She is awaiting placement. Objective Data Objective Data Vital Signs: Vital Signs Temp Pulse Resp BP Pulse Ox 98.3 F 80 16 115/61 100 12/01/20 14:00 12/01/20 14:00 12/01/20 14:00 12/01/20 14:00 12/01/20 14:00 Oxygen Flow Rate (L/min) 2 Oxygen Delivery Method Nasal Cannula Weight: 188 lb 0.869 oz Body Mass Index (BMI) 31.3 Intake & Output: Intake and Output for Last 24 Hours 11/29/20 11/30/20 12/01/20 23:59 23:59 23:59 Intake Total 490 / 490 1400 / 1400 300 / 300 Output Total 800 / 800 150 / 150 Balance 490 / 490 600 / 600 150 / 150 Lab / Micro Data Result Diagrams: 11/29/20 06:42 11/29/20 06:42 Physical Exam Const alert, oriented x3 and no apparent distress Exam Limitations: no limitations HEENT head/scalp atraumatic, moist oral mucous membranes and oropharynx normal Head and Scalp: normocephalic Eyes PERRL, EOMs intact bilaterally and conjunctivae normal Neck no lymphadenopathy Resp normal respiratory effort, no retractions, no use of accessory muscles and clear to auscultation bilaterally Cardio regular rate, regular rhythm, S1 normal heart sound, S2 normal heart sound and no murmurs GI normal to inspection, nondistended, normoactive bowel sounds Extremity normal to inspection and no clubbing, cyanosis or edema Peripheral Pulses: Yes pulses 2+ throughout Skin no rashes or lesions noted Neuro oriented x3 Sensorium / Orientation: awake and alert Psych affect normal Assessment & Plan Assessment/Plan (1) Acute lower gastrointestinal hemorrhage: PLAN: #Lower GI bleed due to hemorrhoids * resolved. * * #Anemia * on oral iron * #Left foot pain * small chronic avulsion fracture of the medial malleolus * stable * #Chronic hypoxic respiratory failure due to COPD * stable. * breathing treatment with bronchodilators * #Hypothyroidism: on synthroid. #Depressio: on mirtazapine. DVT prophylaxis: SCDs. No anticoagulation o/a of rectal bleeding Disposition: awaiting placement. Charges/Coding Visit Charges Inpatient E&M: 63977 Subs Hosp L2
[2020-12-01] MEDS: Glycerin/Hypromellose/PEG400 15 ml Bottle 2 DRP EACH EYE (17:41)
[2020-12-01] MEDS: Latanoprost 0.005% 1 Bottle 1 DRP OPHTHALMIC (20:11)
[2020-12-01] MEDS: Mirtazapine 15 MG Tablet 7.5 MG PO (20:13)
[2020-12-01] MEDS: Pramipexole Di-HCl 1 MG Tablet PO (20:15)
[2020-12-01] MEDS: Temazepam 15 MG Capsule 30 MG PO (20:21)
[2020-12-01 20:25] VITALS: BP 110/65; PULSE 97; RESP 18; TEMP 36.7; O2SAT 97
[2020-12-02 02:51] VITALS: BP 102/69; PULSE 91; RESP 16; TEMP 36.4; O2SAT 99
[2020-12-02] MEDS: Levothyroxine 50 MCG Tablet PO (05:59)
[2020-12-02] MEDS: BRIMONIDINE 0.15% 5 ML Bottle 1 DRP OPHTHALMIC ×2 (05:59→20:26)
[2020-12-02] MEDS: Phenobarbital 32.4 MG Tablet PO ×2 (05:59→20:25)
[2020-12-02] MEDS: Methadone 10 MG Tablet PO ×3 (05:59→20:25)
[2020-12-02] MEDS: Benztropine 2 MG Tablet PO ×2 (05:59→20:26)
[2020-12-02] MEDS: RisperiDONE 0.25 MG Tablet PO (05:59)
[2020-12-02] MEDS: DULoxetine Hcl 20 MG Capsule PO (06:00)
[2020-12-02] MEDS: Potassium Chloride Oral Tablet 20 MEQ PO ×2 (06:00→20:26)
[2020-12-02] MEDS: Mirabegron 25 MG TAB.ER.24H PO ×2 (06:00→20:27)
[2020-12-02] MEDS: OXcarbazepine 600 MG Tablet PO ×2 (06:01→20:28)
[2020-12-02] MEDS: Pantoprazole Sodium 20 MG Tablet PO (06:02)
[2020-12-02] MEDS: Senna/Docusate Sodium 1 Tablet 2 TABLET PO (06:04)
[2020-12-02] MEDS: Heparin Injection (Vial) 5,000 UNIT/ML VIAL 5000 UNIT SC ×2 (08:37→20:25)
[2020-12-02] MEDS: Acetaminophen 325 MG Tablet 650 MG PO (08:39)
[2020-12-02 08:45] VITALS: BP 91/53; PULSE 82; RESP 16; TEMP 37; O2SAT 96
--- NOTE | 2020-12-02 11:14 | PN.HOSP_ITS ---
Subjective Subjective Patient seen and examined. She complains of back pain which is chronic. She has no other complaints. Review of systems otherwise negative. She is awaiting placement. Objective Data Objective Data Vital Signs: Vital Signs Temp Pulse Resp BP Pulse Ox 98.6 F 82 16 91/53 L 96 12/02/20 08:45 12/02/20 08:45 12/02/20 08:45 12/02/20 08:45 12/02/20 08:45 Oxygen Flow Rate (L/min) 2 Oxygen Delivery Method Nasal Cannula Weight: 188 lb 0.869 oz Body Mass Index (BMI) 31.3 Intake & Output: Intake and Output for Last 24 Hours 11/30/20 12/01/20 12/02/20 23:59 23:59 23:59 Intake Total 1400 / 1400 900 / 900 Output Total 800 / 800 200 / 200 100 / 100 Balance 600 / 600 700 / 700 -100 / -100 Lab / Micro Data Result Diagrams: 11/29/20 06:42 11/29/20 06:42 Physical Exam Const alert, oriented x3, no apparent distress and healthy appearing General Appearance: cooperative, well kempt and well developed Orientation / Consciousness: awake, oriented to person, oriented to place and oriented to time Exam Limitations: no limitations HEENT normocephalic, head/scalp atraumatic, hearing grossly normal bilaterally, moist oral mucous membranes and oropharynx normal Eyes PERRL, EOMs intact bilaterally and conjunctivae normal Neck nuchal rigidity, no lymphadenopathy, supple, no JVD, thyroid normal and no carotid bruits General: trachea midline Resp normal respiratory effort, no retractions, no use of accessory muscles and clear to auscultation bilaterally Auscultation: Negative for rales, rhonchi or wheezes Cardio regular rate, regular rhythm, S1 normal heart sound, S2 normal heart sound, no murmurs, no rub, no gallops and no clicks GI normal to inspection, nondistended, normoactive bowel sounds, soft to palpation, non-tender and non-distended Extremity normal to inspection and no clubbing, cyanosis or edema Skin no rashes or lesions noted, no wounds and no jaundice General Skin Exam: no breakdown Neuro oriented x3, CN's II-XII intact bilaterally, moves all extremities, no focal motor deficits and no sensory deficits noted Sensorium / Orientation: awake and alert Speech: speech normal Psych thought process normal and affect normal Assessment & Plan Assessment/Plan (1) Acute lower gastrointestinal hemorrhage: PLAN: #Lower GI bleed due to hemorrhoids * resolved. * #Anemia * on oral iron * #Left foot pain * small chronic avulsion fracture of the medial malleolus * stable * #Chronic hypoxic respiratory failure due to COPD * stable. * breathing treatment with bronchodilators * #Hypothyroidism: on synthroid. #Depression: on mirtazapine. DVT prophylaxis: SCDs. No anticoagulation o/a of rectal bleeding Disposition: awaiting placement. Charges/Coding Visit Charges Inpatient E&M: 95523 Subs Hosp L2
--- NOTE | 2020-12-02 11:18 | CASEMGMT ---
Addendum entered by Lina Fairchild 12/02/20 14:44: SW checked again online in the [employer] system, no results in yet. SW called [facility] again, message left. SW attempted to let pt know, she is sleeping at present. CRISTIANO Moreira Addendum entered by Lina Fairchild 12/02/20 12:32: Stefano at [facility] called this SW. He explained that pt's case is in que to be reviewed by the state. Stefano explains that once it is reviewed, the state will enter the information into the [employer] system and send a fax. Stefano is not sure when it will be sent to the [facility], he is going to send an email asking for it to be sent. Stefano also does not know how long it will take the state to review, but states once it goes to the [facility] it doesn't take too long. GRAHAM will continue to follow. CRISTIANO Moreira Original Note: GRAHAM checked the online PAS[employer]RR system, no results are in yet. GRAHAM called [facility], message left. CRISTIANO Moreira
[2020-12-02] MEDS: Ferrous Sulfate 325 MG Tablet PO ×2 (12:04→17:06)
[2020-12-02 12:15] VITALS: BP 109/71; PULSE 81; RESP 16; TEMP 37.3; O2SAT 97
[2020-12-02 14:38] VITALS: BP 108/97; PULSE 96; RESP 16; TEMP 36.7; O2SAT 99
[2020-12-02 15:46] VITALS: O2SAT 97
--- NOTE | 2020-12-02 15:50 | CASEMGMT ---
Addendum entered by Lina Fairchild 12/02/20 16:09: SW logged into the [employer] system, no results yet for pt. CRISTIANO Moreira Original Note: SW spoke w/[facility] again, they anticipate having results today or tomorrow. NORMAN MoreiraS
[2020-12-02 20:25] VITALS: BP 114/80; PULSE 85; RESP 18; TEMP 36.9; O2SAT 93
[2020-12-02] MEDS: Temazepam 15 MG Capsule 30 MG PO (20:25)
[2020-12-02] MEDS: Mirtazapine 15 MG Tablet 7.5 MG PO (20:26)
[2020-12-02] MEDS: Latanoprost 0.005% 1 Bottle 1 DRP OPHTHALMIC (20:26)
[2020-12-02] MEDS: Pramipexole Di-HCl 1 MG Tablet PO (20:28)
[2020-12-03 02:25] VITALS: BP 103/43; PULSE 78; RESP 16; TEMP 36.6; O2SAT 94
[2020-12-03] MEDS: Phenobarbital 32.4 MG Tablet PO (05:58)
[2020-12-03] MEDS: BRIMONIDINE 0.15% 5 ML Bottle 1 DRP OPHTHALMIC (05:58)
[2020-12-03] MEDS: Methadone 10 MG Tablet PO ×2 (05:58→15:05)
[2020-12-03] MEDS: Benztropine 2 MG Tablet PO (05:58)
[2020-12-03] MEDS: Levothyroxine 50 MCG Tablet PO (05:59)
[2020-12-03] MEDS: OXcarbazepine 600 MG Tablet PO (05:59)
[2020-12-03] MEDS: DULoxetine Hcl 20 MG Capsule PO (05:59)
[2020-12-03] MEDS: RisperiDONE 0.25 MG Tablet PO (05:59)
[2020-12-03] MEDS: Potassium Chloride Oral Tablet 20 MEQ PO (05:59)
[2020-12-03] MEDS: Mirabegron 25 MG TAB.ER.24H PO (06:00)
[2020-12-03] MEDS: Pantoprazole Sodium 20 MG Tablet PO (06:00)
[2020-12-03] MEDS: Polyethylene Glycol 3350 17 GM PACKET PO (06:00)
[2020-12-03] MEDS: Senna/Docusate Sodium 1 Tablet 2 TABLET PO (06:04)
--- NOTE | 2020-12-03 09:30 | CASEMGMT ---
Social Work Pt has been assessed by [facility] and is approved to go to SNF. Physician updated and pt to be discharged on this date. SW left VM with Yana at [facility] and updated that pt will be coming today. GRAHAM met with pt and informed of discharge planned for today to the [facility]. Pt is agreeable to plan. GRAHAM will continue to follow for d/c. S. KRYSTINA Starkey
[2020-12-03 09:32] VITALS: BP 117/95; PULSE 69; RESP 18; TEMP 37.1; O2SAT 96
[2020-12-03] MEDS: Heparin Injection (Vial) 5,000 UNIT/ML VIAL 5000 UNIT SC (09:43)
[2020-12-03 10:15] VITALS: O2SAT 95
--- NOTE | 2020-12-03 11:11 | PCM.DC.SUM ---
Providers Date of Admission: 11/22/20 Primary Care Physician: Dr. Patel Veliz MD Consultations 11/24/20 13:24 Consult: Podiatry Routine Consulting Provider: Kristine Cee Reason for Consult: left foot pain, fall EMERGENT Consult: No MD Notified: Yes Date Notified: 11/24/20 Time Notified: 13:24 Method of Notification: Verbal Method of Consult:: Telemedicine Reason For Visit: RECTAL BLEEDING, DEBILITY Diagnosis Discharge Diagnosis (1) Acute lower gastrointestinal hemorrhage: Status: Acute Code(s): K92.2 - Gastrointestinal hemorrhage, unspecified Medications at Discharge Home Medications aspirin 81 mg PO 1200 01/07/19 duloxetine 20 mg PO DAILY 01/07/19 levothyroxine 50 mcg PO DAILY 01/07/19 potassium chloride 20 meq PO BID 01/07/19 risperidone 0.25 mg PO QHS 01/07/19 mirtazapine 7.5 mg tablet 7.5 mg PO QHS tablet 02/21/19 latanoprost (PF) 1 drp EACHEYE QHS 08/08/19 nicotine 1 patch TOPICAL DAILY 08/08/19 ropinirole 2 mg PO QHS 08/08/19 acetaminophen 650 mg PO Q6H PRN PRN tablet 08/11/19 albuterol sulfate 90 mcg/actuation aerosol inhaler 1 inh INHALATION BID PRN PRN 05/13/20 calcium carbonate 500 mg calcium (1,250 mg) tablet 500 mg PO BID 05/13/20 fluticasone furoate 100 mcg-vilanterol 25 mcg/dose inhalation powder 2 puff INHALATION DAILY 05/13/20 mirabegron 25 mg tablet,extended release 24 hr 25 mg PO BID tab 05/13/20 omeprazole 20 mg capsule,delayed release 20 mg PO DAILY cap 05/13/20 sennosides 8.6 mg-docusate sodium 50 mg tablet 2 tab PO BID 05/13/20 brimonidine 0.15 % eye drops 1 drp OPHTHALMIC BID 07/09/20 benztropine 2 mg tablet 2 mg PO BID #60 tab 10/13/20 oxcarbazepine 600 mg tablet 600 mg PO BID #60 tab 10/13/20 phenobarbital 32.4 mg tablet 32.4 mg PO BID #60 tab 10/13/20 cholecalciferol (vitamin D3) 1,250 mcg PO WE 10/20/20 multivitamin 1 tab PO 1200 10/20/20 temazepam 30 mg PO QHS PRN 10/20/20 methadone 10 mg PO TID 5 Days #15 tab 10/25/20 ferrous sulfate [FeroSul] 325 mg PO 1200,1700 #60 tab 12/03/20 Hospital Course Operations None Procedures None Summary of Care Provided Minutes Spent on Discharge: 40 Hospital Course: Patient is a 70-year-old female with an extensive past medical history as outlined was admitted through the ED on 11/22/2020 with a complaint of rectal bleeding was started the day of admission. She also complained of generalized weakness. Patient had been released from a residential facility on the day of admission after undergoing rehab for about a month but family did not think she was well enough to go home. On admission, hemoglobin was 11.4 and rectal exam done showed no evidence of melena or bright red blood on examining finger. There was noted to be external hemorrhoids. Patient was admitted and managed for lower GI bleed thought to be due to hemorrhoidal bleed. She was also managed for debility due to spinal stenosis. PT OT was consulted. Rectal bleed did not recur during this admission and hemoglobin remained stable. Podiatry was consulted on account of left foot pain. She was done showed significant reduction in bone density of the left foot but no evidence of acute fracture. Start recommended Palmer wraps to reduce edema and PT OT for therapy and she was managed for foot and ankle sprain. Patient remained stable and was [place] [facility] on 12/03/2020. Her prolonged stay in the hospital was only because she was awaiting insurance approval to go to a [place] [facility] [place]. She was discharged on 12/03/2020 is follow-up with her primary care doctor in 1 to 2 weeks. Patient was seen and reviewed examined prior to discharge. She has complained of some back pain due to her spinal stenosis which was chronic but had no left leg complaints. Review of systems otherwise negative. Labs and vitals reviewed. Home medication reviewed and reconciled. Physical Exam Const alert, oriented x3, no apparent distress and healthy appearing General Appearance: cooperative, well kempt and well developed Orientation / Consciousness: awake, oriented to person, oriented to place and oriented to time Exam Limitations: no limitations HEENT normocephalic, head/scalp atraumatic, hearing grossly normal bilaterally, moist oral mucous membranes and oropharynx normal Eyes PERRL, EOMs intact bilaterally and conjunctivae normal Neck nuchal rigidity, no lymphadenopathy, supple, no JVD, thyroid normal and no carotid bruits General: trachea midline Resp normal respiratory effort, no retractions, no use of accessory muscles and clear to auscultation bilaterally Auscultation: Negative for rales, rhonchi or wheezes Cardio regular rate, regular rhythm, S1 normal heart sound, S2 normal heart sound, no murmurs, no rub, no gallops and no clicks GI normal to inspection, nondistended, normoactive bowel sounds, soft to palpation, non-tender and non-distended Extremity normal to inspection and no clubbing, cyanosis or edema Skin no rashes or lesions noted, no wounds and no jaundice General Skin Exam: no breakdown Neuro oriented x3, CN's II-XII intact bilaterally, moves all extremities, no focal motor deficits and no sensory deficits noted Sensorium / Orientation: awake and alert Speech: speech normal Psych thought process normal and affect normal Weight / BMI Weight Weight: 188 lb 0.869 oz Body Mass Index (BMI) 31.3 ABG / Lab / Microbiology Data Result Diagrams: 11/29/20 06:42 11/29/20 06:42 Microbiology: Microbiology 12/03/20 09:35 SARS-CoV-2 Antigen (Rapid) - Final Mucosa - Nose Microbiology 12/03/20 09:35 Mucosa - Nose SARS-CoV-2 Antigen (Rapid) - Final D/C Instructions Please Follow Up With: Kristine Cee DPM Meaningful Use Info Meaningful Use Diagnoses (Choose all that apply): None applicable Discharge Plan Admission Admit Date/Time: 11/22/20 19:35 Primary Reason for Your Visit: rectal bleeding, debility Attending Provider: Silva Greene Primary Care Provider: Patel Veliz Chi Consulting Providers: Kristine Cee Instructions Patient Instructions: ED Hemorrhoids Additional Instructions / Restrictions: Bleeding appears to be coming from external hemorrhoids. Use Preparation H at least twice daily. Warm soaks. Call and follow-up with Dr. Lis Potter of general surgery to have your hemorrhoids addressed. Return if bleeding is a lot worse. Weight bear as tolerated to left foot with surgical shoe. Use walker for assistance. Elevate left lower extremity at rest as tolerated and continue PALMER wrap to reduce your limb swelling. Discharge Orders/Prescriptions Prescriptions: New ferrous sulfate [FeroSul] 325 mg (65 mg iron) Tablet 325 mg PO 1200,1700 Qty: 60 RF: 1 Continued Myrbetriq 25 mg tablet extended release 24 hr 25 mg PO BID RF: 0 omeprazole 20 mg capsule,delayed release(DR/EC) 20 mg PO DAILY RF: 0 sennosides-docusate sodium [Senexon-S] 8.6-50 mg tablet 2 tab PO BID RF: 0 calcium carbonate [Oyster Shell Calcium] 500 mg calcium (1,250 mg) tablet 500 mg PO BID RF: 0 fluticasone furoate-vilanterol 100-25 mcg/dose blister with device 2 puff INHALATION DAILY RF: 0 albuterol sulfate [Ventolin HFA] 90 mcg/actuation HFA aerosol inhaler 1 inh INHALATION BID PRN PRN (Reason: COPD) RF: 0 brimonidine 0.15 % drops 1 drp OPHTHALMIC BID RF: 0 benztropine 2 mg tablet 2 mg PO BID Qty: 60 RF: 3 oxcarbazepine 600 mg tablet 600 mg PO BID Qty: 60 RF: 3 phenobarbital 32.4 mg tablet 32.4 mg PO BID Qty: 60 RF: 3 risperidone 0.25 MG tablet 0.25 mg PO QHS RF: 0 aspirin 81 MG tablet,delayed release (DR/EC) 81 mg PO 1200 RF: 0 potassium chloride 20 MEQ tablet 20 meq PO BID RF: 0 levothyroxine 50 MCG tablet 50 mcg PO DAILY RF: 0 duloxetine 20 MG capsule,delayed release(DR/EC) 20 mg PO DAILY RF: 0 mirtazapine 7.5 mg tablet 7.5 mg PO QHS RF: 0 ropinirole 2 MG tablet 2 mg PO QHS RF: 0 nicotine 21 mg/24 hr patch 24 hour 1 patch TOPICAL DAILY RF: 0 latanoprost (PF) 7.5 ML drops 1 drp EACHEYE QHS RF: 0 acetaminophen 325 MG tablet 650 mg PO Q6H PRN PRN (Reason: Pain Score 1-10/Temp > 100.7 F) RF: 0 multivitamin Tablet 1 tab PO 1200 RF: 0 temazepam 30 mg Capsule 30 mg PO QHS PRN (Reason: Sleep) RF: 0 cholecalciferol (vitamin D3) 1,250 mcg (50,000 unit) capsule 1,250 mcg PO WE RF: 0 methadone 10 mg tablet 10 mg PO TID 5 Days Qty: 15 RF: 0 Referrals / Follow Up: Kristine Cee DPM [STAFF PHYSICIAN] - None (Follow up within 3 weeks. ) Patel Veliz Chi, MD [Primary Care Provider] - Laina Potter MD [STAFF PHYSICIAN] - As soon as possible Disposition Disposition (needs filled in before D/C Order can be placed): Detention Facility
--- NOTE | 2020-12-03 11:34 | TREXTCAR_ITS ---
Diet 11/22/20 20:48 Diet: Regular - General Food consistency:: Regular Liquid Consistency:: Regular/Thin Routine Orders/Code Status O2 Frequency: Continuous Keep PO Greater than or Equal to (%): 94 Routine Lab Work: CBC (within 3 days) and BMP (within 3 days) Therapies Weight Bearing: Weight bearing as tolerated Physical Therapy: Eval and Treat Occupational Therapy: Eval and Treat Problem/Diagnosis (1) Acute lower gastrointestinal hemorrhage: Status: Acute Allergies/Procedures Done in Hospital Allergies codeine Allergy (Mild, Verified 11/22/20 16:58) HIVES Penicillins Allergy (Verified 11/22/20 16:58) Anaphylaxis Procedures: None Type of Care/Length of Stay Estimated LOS: Convalescent Care Less Than 30 days Type of Care Needed: Skilled Rehab Potential: Good Prognosis: Good Additional Orders/Day of Discharge Day of Discharge: 11/27/20 Follow Up Care Please Follow Up With: Kristine Cee DPM When: in 2 weeks Discharge Plan Admission Admit Date/Time: 11/22/20 19:35 Primary Reason for Your Visit: rectal bleeding, debility Attending Provider: Silva Greene Primary Care Provider: Patel Veliz Chi Consulting Providers: Kristine Cee Instructions Patient Instructions: ED Hemorrhoids Additional Instructions / Restrictions: Bleeding appears to be coming from external hemorrhoids. Use Preparation H at least twice daily. Warm soaks. Call and follow-up with Dr. Lis Potter of general surgery to have your hem orrhoids addressed. Return if bleeding is a lot worse. Weight bear as tolerated to left foot with surgical shoe. Use walker for assistance. Elevate left lower extremity at rest as tolerated and continue LIDIA wrap to reduce your limb swelling. Discharge Orders/Prescriptions Prescriptions: New ferrous sulfate [FeroSul] 325 mg (65 mg iron) Tablet 325 mg PO 1200,1700 Qty: 60 RF: 1 Continued Myrbetriq 25 mg tablet extended release 24 hr 25 mg PO BID RF: 0 omeprazole 20 mg capsule,delayed release(DR/EC) 20 mg PO DAILY RF: 0 sennosides-docusate sodium [Senexon-S] 8.6-50 mg tablet 2 tab PO BID RF: 0 calcium carbonate [Oyster Shell Calcium] 500 mg calcium (1,250 mg) tablet 500 mg PO BID RF: 0 fluticasone furoate-vilanterol 100-25 mcg/dose blister with device 2 puff INHALATION DAILY RF: 0 albuterol sulfate [Ventolin HFA] 90 mcg/actuation HFA aerosol inhaler 1 inh INHALATION BID PRN PRN (Reason: COPD) RF: 0 brimonidine 0.15 % drops 1 drp OPHTHALMIC BID RF: 0 benztropine 2 mg tablet 2 mg PO BID Qty: 60 RF: 3 oxcarbazepine 600 mg tablet 600 mg PO BID Qty: 60 RF: 3 phenobarbital 32.4 mg tablet 32.4 mg PO BID Qty: 60 RF: 3 risperidone 0.25 MG tablet 0.25 mg PO QHS RF: 0 aspirin 81 MG tablet,delayed release (DR/EC) 81 mg PO 1200 RF: 0 potassium chloride 20 MEQ tablet 20 meq PO BID RF: 0 levothyroxine 50 MCG tablet 50 mcg PO DAILY RF: 0 duloxetine 20 MG capsule,delayed release(DR/EC) 20 mg PO DAILY RF: 0 mirtazapine 7.5 mg tablet 7.5 mg PO QHS RF: 0 ropinirole 2 MG tablet 2 mg PO QHS RF: 0 nicotine 21 mg/24 hr patch 24 hour 1 patch TOPICAL DAILY RF: 0 latanoprost (PF) 7.5 ML drops 1 drp EACHEYE QHS RF: 0 acetaminophen 325 MG tablet 650 mg PO Q6H PRN PRN (Reason: Pain Score 1-10/Temp > 100.7 F) RF: 0 multivitamin Tablet 1 tab PO 1200 RF: 0 temazepam 30 mg Capsule 30 mg PO QHS PRN (Reason: Sleep) RF: 0 cholecalciferol (vitamin D3) 1,250 mcg (50,000 unit) capsule 1,250 mcg PO WE RF: 0 methadone 10 mg tablet 10 mg PO TID 5 Days Qty: 15 RF: 0 Referrals / Follow Up: Kristine Cee DPM [STAFF PHYSICIAN] - None (Follow up within 3 weeks. ) Patel Veliz Chi, MD [Primary Care Provider] - Laina Potter MD [STAFF PHYSICIAN] - As soon as possible Disposition Disposition (needs filled in before D/C Order can be placed): Shelter Facility
--- NOTE | 2020-12-03 14:35 | PHA.DC.MR ---
Pharmacy Service has performed discharge medication reconciliation for this patient. The patient's discharge medication list was reviewed for discrepancies and discrepancies were resolved. Home Medications aspirin 81 mg PO 1200 01/07/19 duloxetine 20 mg PO DAILY 01/07/19 levothyroxine 50 mcg PO DAILY 01/07/19 potassium chloride 20 meq PO BID 01/07/19 risperidone 0.25 mg PO QHS 01/07/19 mirtazapine 7.5 mg tablet 7.5 mg PO QHS tablet 02/21/19 latanoprost (PF) 1 drp EACHEYE QHS 08/08/19 nicotine 1 patch TOPICAL DAILY 08/08/19 ropinirole 2 mg PO QHS 08/08/19 acetaminophen 650 mg PO Q6H PRN PRN tablet 08/11/19 albuterol sulfate 90 mcg/actuation aerosol inhaler 1 inh INHALATION BID PRN PRN 05/13/20 calcium carbonate 500 mg calcium (1,250 mg) tablet 500 mg PO BID 05/13/20 fluticasone furoate 100 mcg-vilanterol 25 mcg/dose inhalation powder 2 puff INHALATION DAILY 05/13/20 mirabegron 25 mg tablet,extended release 24 hr 25 mg PO BID tab 05/13/20 omeprazole 20 mg capsule,delayed release 20 mg PO DAILY cap 05/13/20 sennosides 8.6 mg-docusate sodium 50 mg tablet 2 tab PO BID 05/13/20 brimonidine 0.15 % eye drops 1 drp OPHTHALMIC BID 07/09/20 benztropine 2 mg tablet 2 mg PO BID #60 tab 10/13/20 oxcarbazepine 600 mg tablet 600 mg PO BID #60 tab 10/13/20 phenobarbital 32.4 mg tablet 32.4 mg PO BID #60 tab 10/13/20 cholecalciferol (vitamin D3) 1,250 mcg PO WE 10/20/20 multivitamin 1 tab PO 1200 10/20/20 temazepam 30 mg PO QHS PRN 10/20/20 methadone 10 mg PO TID 5 Days #15 tab 10/25/20 ferrous sulfate [FeroSul] 325 mg PO 1200,1700 #60 tab 12/03/20
[2020-12-03] MEDS: Ferrous Sulfate 325 MG Tablet PO (15:05)
[2020-12-03 15:06] VITALS: BP 105/60; PULSE 64; RESP 18; TEMP 36.6; O2SAT 95
--- NOTE | 2020-12-03 15:11 | CASEMGMT ---
Social Work Pt ready for discharge at this time. Orders faxed to Yana at the [facility] and transportation arranged with [facility] for [address] by wheelchair van. Pt updated on discharge time and agreeable. Phone call to the [facility] with discharge time. With pt permission, phone call to shannan Nuno and explained d/c plan. Nursing notified of d/c time. KRYSTINA Schofield
--- NOTE | 2020-12-03 15:28 | NURSING ---
Report called the the [facility].
== END 2020-12-03 17:13 ==
LOC: ED 19:19 → MS3 19:51
PROVIDERS: Internal Medicine; Admitting Provider Internal Medicine; Emergency Provider Emergency Medicine; PCP Family Medicine Geriatric Medicine; Visit Provider Student in an Organized Health Care Education/Training Program
DX: K64.4 Residual hemorrhoidal skin tags (principal); K92.1 Melena; J44.9 Chronic obstructive pulmonary disease, unspecified; G25.81 Restless legs syndrome; J96.11 Chronic respiratory failure with hypoxia; F17.210 Nicotine dependence, cigarettes, uncomplicated; G47.33 Obstructive sleep apnea (adult) (pediatric); I10 Essential (primary) hypertension; G40.909 Epilepsy, unspecified, not intractable, without status epilepticus; R62.7 Adult failure to thrive; R53.1 Weakness; G89.4 Chronic pain syndrome; F32.9 Major depressive disorder, single episode, unspecified; F41.9 Anxiety disorder, unspecified; D50.9 Iron deficiency anemia, unspecified; E78.5 Hyperlipidemia, unspecified; G62.9 Polyneuropathy, unspecified; E03.9 Hypothyroidism, unspecified; S93.602A Unspecified sprain of left foot, initial encounter; W19.XXXA Unspecified fall, initial encounter; Y93.9 Activity, unspecified; Y92.9 Unspecified place or not applicable; Z99.81 Dependence on supplemental oxygen; Z79.899 Other long term (current) drug therapy; Z79.82 Long term (current) use of aspirin; Z68.32 Body mass index [BMI] 32.0-32.9, adult; Z91.19 Patient's noncompliance with other medical treatment and regimen; B35.1 Tinea unguium
CPT/HCPCS: 36415; 73562; 73610; 73630; 80048; 80053; 82728; 83540; 83550; 85025; 85027; 85610; 86850; 86900; 86901; 87426; 96372; 96374; 97110; 97116; 97162; 97166; 97530; 97535; 99218; 99285; 99406; A4216; G0378; J2405

== ENCOUNTER → 2020-12-30 11:41 | Outpatient (CLI) | payer MEDICARE, MEDICAID, SELFPAY ==
--- NOTE | 2020-12-30 11:45 | RAD_ITS ---
STUDY: X-RAY - LUMBAR SPINE REASON FOR EXAM: Female, 70 years old. FALL. Severe low back pain. TECHNIQUE: 3 view(s) of the lumbar spine were obtained. COMPARISON: None FINDINGS: Normal lumbar lordosis. There is no substantial scoliosis. Anterior listhesis of L4 on L5. Normal vertebral bodies and endplates. Moderate degree of disc space narrowing at the L4-L5 level and a marked degree of disc space narrowing at the L5-S1 level. Facet joint osteoarthritis. Fecal material is seen within the colon. Opaque tablets are seen within the bowel. RAD/Lumbar Spine 2 or 3 Views IMPRESSION: Degenerative changes of the spine, as detailed above. Electronically Signed: Isaias Munroe MD at 13:20 EDT , Service support ,
== END ==
PROVIDERS: PCP Family Medicine Geriatric Medicine; Referring Provider Anesthesiology Pain Medicine; Visit Provider Anesthesiology Pain Medicine
DX: M54.5 Low back pain (principal)
CPT/HCPCS: 72100

== ENCOUNTER 2021-01-10 16:11 | Observation (INO) | payer MEDICARE, MEDICAID, SELFPAY ==
[2021-01-10 16:13] VITALS: BP 138/108; PULSE 104; RESP 20; TEMP 36.9; O2SAT 95; BMI 30.4
--- NOTE | 2021-01-10 16:20 | CT_ITS ---
STUDY: CT ABDOMEN AND PELVIS WITH CONTRAST REASON FOR EXAM: Female, 70 years old. abdominal pain RADIATION DOSAGE (If Supplied By Facility): CTDIvol = ( 16.72 ) mGy, DLP = ( 1053.67 ) mGycm TECHNIQUE: Transaxial images were obtained from the dome of the diaphragm to the symphysis pubis without oral contrast. IV 100mL Isovue-370 was administered. Sagittal and coronal images were reconstructed. Individualized dose optimization techniques were used for this CT. COMPARISON: 01/10/2021 FINDINGS: The visualized lung bases are unremarkable. The visualized portions of the heart are within normal limits. Normal liver. Gallbladder is surgically absent. Similar left more than right intrahepatic and extrahepatic bile duct dilation similar since previous study, likely related to prior cholecystectomy. Normal spleen. Normal pancreas. Normal bilateral adrenal glands. Normal right kidney. Normal left kidney. Normal visualized stomach. Normal small intestine. There are multiple colonic diverticula consistent with diverticulosis. Inferior positioning of the rectum in relation to the pelvic floor is stable, suggesting pelvic floor instability/rectocele.. The appendix is visualized and appears normal. There is diffuse atherosclerotic calcification of the abdominal aorta, without a demonstrated aneurysm. Normal inferior vena cava. Normal retroperitoneum. Normal urinary bladder. There is atrophy of the uterus. Normal abdominal wall. There are diffuse degenerative changes of the visualized lumbar spine. Right hip replacement causes moderate spray artifact. CT/Abdomen/Pelvis W IV Cont ONLY IMPRESSION: 1. No acute inflammatory process or bowel obstruction. Stable exam, detailed above. Electronically Signed: Fabricio Garsia MD ([place]) at 17:44 EDT , Service support ,
--- NOTE | 2021-01-10 16:21 | EDS_ITS ---
HPI HPI - GI History of Present Illness Chief Complaint: Abd Pain Detail of Chief Complaint: Abdominal pain that started early this morning Informant: patient Abdominal Pain/Flank Pain Quality: Cramping, Dull and Sharp Current Severity: 10/10 Nausea/Vomiting/Emesis GI Symptom: Positive for Nausea and Vomiting Narrative Narrative: Patient presents with abdominal pain that started early this morning. Patient states the pain is continuous and rates it a 10 out of 10 currently. Patient states that she has vomited at least six times. She denies any blood in her vomitus. She denies diarrhea. Her last bowel movement was 4 days ago. Patient denies any fever. She does describe some dysuria. Patient has had an appendectomy and cholecystectomy. Patient had plain abdominal x-rays at the group home that were essentially unremarkable without evidence of obstruction. Prior similar symptoms: No PFSH PFSH Medical History Anxiety COPD (chronic obstructive pulmonary disease) Degenerative disc disease, lumbar Depression Gastritis Hypertension Insomnia Obstructive sleep apnea On home oxygen therapy Pain, chronic Physical debility Restless leg syndrome Seizure disorder Seizures Sleep apnea Smoker Smokes with greater than 40 pack year history Home Medications aspirin 81 mg PO 1200 01/07/19 [History Last Taken 11/22/20] duloxetine 20 mg PO DAILY 01/07/19 [History Last Taken 11/22/20] levothyroxine 50 mcg PO DAILY 01/07/19 [History Last Taken 11/21/20] potassium chloride 20 meq PO BID 01/07/19 [History Last Taken 11/22/20] mirtazapine 7.5 mg tablet 7.5 mg PO QHS tablet 02/21/19 [History Last Taken 11/21/20] latanoprost (PF) 1 drp EACHEYE QHS 08/08/19 [History Last Taken 11/21/20] nicotine 1 patch TOPICAL DAILY 08/08/19 [History Last Taken 11/22/20] ropinirole 2 mg PO QHS 08/08/19 [History Last Taken 11/21/20] acetaminophen 650 mg PO Q6H PRN PRN tablet 08/11/19 [Rx Last Taken Unknown] albuterol sulfate 90 mcg/actuation aerosol inhaler 1 inh INHALATION BID PRN PRN 05/13/20 [History Last Taken 11/21/20] calcium carbonate 500 mg calcium (1,250 mg) tablet 500 mg PO BID 05/13/20 [History Last Taken 11/22/20] fluticasone furoate 100 mcg-vilanterol 25 mcg/dose inhalation powder 2 puff INHALATION DAILY 05/13/20 [History Last Taken 11/22/20] mirabegron 25 mg tablet,extended release 24 hr 25 mg PO BID tab 05/13/20 [History Last Taken 11/22/20] omeprazole 20 mg capsule,delayed release 20 mg PO DAILY cap 05/13/20 [History Last Taken 11/22/20] sennosides 8.6 mg-docusate sodium 50 mg tablet 2 tab PO BID 05/13/20 [History Last Taken 11/22/20] brimonidine 0.15 % eye drops 1 drp OPHTHALMIC BID 07/09/20 [History Last Taken 11/22/20] benztropine 2 mg tablet 2 mg PO BID #60 tab 10/13/20 [Rx Last Taken 11/22/20] oxcarbazepine 600 mg tablet 600 mg PO BID #60 tab 10/13/20 [Rx Last Taken 11/22/20] phenobarbital 32.4 mg tablet 32.4 mg PO BID #60 tab 10/13/20 [Rx Last Taken 11/22/20] cholecalciferol (vitamin D3) 1,250 mcg PO WE 10/20/20 [History Last Taken 11/19/20] multivitamin 1 tab PO 1200 10/20/20 [History Last Taken 11/22/20] temazepam 30 mg PO QHS PRN 10/20/20 [History Last Taken 11/21/20] methadone 10 mg PO TID 5 Days #15 tab 10/25/20 [Rx Last Taken 11/22/20] ferrous sulfate [FeroSul] 325 mg PO 1200,1700 #60 tab 12/03/20 [Rx Last Taken Unknown] ondansetron 4 mg PO Q6H PRN 01/10/21 [History Last Taken Unknown] Allergy/AdvReac Type Severity Reaction Status Date / Time codeine Allergy Mild HIVES Verified 11/22/20 16:58 Penicillins Allergy Anaphylaxis Verified 11/22/20 16:58 Family History Mother Diabetes Heart disease Hypertension CAD (coronary artery disease) CVA (cerebral vascular accident) Thyroid disorder Father Colon cancer Surgical History History of bilateral carpal tunnel release History of bilateral cataract extraction History of blepharoplasty History of cystoscopy History of esophagogastroduodenoscopy (EGD) (~03/07/19) History of right hip replacement History of right salpingo-oophorectomy S/P appendectomy S/P laparoscopic cholecystectomy Status post ORIF of fracture of ankle Social History Smoking Status: Current every day smoker tobacco type: cigarettes Tobacco: How many years used: 50 alcohol intake: never substance use type: does not use ROS ROS ED Constitutional Constitutional ED: Reports systems reviewed and no addt'l complaints, except as documented; Denies body ache(s), change in weight or chills Eyes Eyes: Denies acute decrease in peripheral vision, change in vision, double vision or loss of vision ENT ENT ED: Reports none; Denies ear pain, lip swelling, loss taste/smell, neck pain, otalgia or sore throat Cardiovascular Cardiovascular: Reports none; Denies abdominal pain, chest pain with activity, leg edema, lightheadedness, palpitations, rapid heart rate or syncope Respiratory/Chest Respiratory/Chest: Reports none; Denies change in mental status, dry cough, dyspnea, hemoptysis, shortness of breath at rest or shortness of breath with exertion Gastrointestinal Gastrointestinal: Reports none, abdominal pain, nausea and vomiting; Denies change in stool character, diarrhea, hematemesis, hematochezia, melena or rectal bleeding Genitourinary Genitourinary ED: Reports none and dysuria; Denies abdominal discomfort, anuria, genital pain or polyuria Musculoskeletal Musculoskeletal: Reports none; Denies arthralgias, back pain, difficulty walking, extremity pain, muscle weakness or myalgias Integumentary Reports none; Denies abscess or rash Neurologic Neurologic: Reports none; Denies abnormal gait, confusion, focal weakness, frequent falls, headache(s), loss of vision, numbness, paresthesias, radicular pain, vertigo or weakness Psychiatric Psychiatric: Reports systems reviewed and no addt'l complaints, except as documented and none; Denies behavioral changes, confusion, difficulty concentrating, hallucinations, suicidal ideation, tactile hallucinations or visual hallucinations Endocrine Endocrinology: Denies none, cold intolerance, excessive sweating, fatigue or heat intolerance Hematologic/Lymphatic Hematologic/Lymphatic: Reports none; Denies anemia, easy bleeding or easy bruising Allergic/Immunologic Allergic/Immunologic ED: Denies as per HPI, none, lip swelling, mouth swelling, throat swelling, tongue swelling or hives EXAM Physical Exam Const Vital Signs: 01/10/21 16:13 01/10/21 18:37 Temperature 98.5 F Temperature Source Oral Pulse Rate 104 H 76 Respiratory Rate 20 H 18 Blood Pressure 138/108 H 149/101 H Blood Pressure Mean 118 117 Pulse Ox 95 97 Oxygen Delivery Method Room Air Room Air Positive well nourished and well developed General Appearance ED: well developed and NAD HEENT Reports TM's clear and moist mucous membranes normocephalic and atraumatic; Negative for trauma or tenderness Tympanic Membrane ED: Yes TM's clear Eyes PERRL and EOMs intact bilaterally General Eye ED: Negative for pale conjunctiva or scleral icterus Neck no lymphadenopathy, supple and no JVD General: Negative for tenderness Chest Wall inspection of chest normal and palpation of chest normal Chest: Negative for tenderness Resp normal respiratory effort and clear to auscultation bilaterally Effort and Inspection: Negative for respiratory distress or pain with movement Auscultation: Negative for rhonchi, wheezes or diminished lung sounds Cardio regular rate, regular rhythm, S1 normal heart sound, S2 normal heart sound and no murmurs Peripheral Pulses: pulses 2+ throughout GI normal to inspection, nondistended, normoactive bowel sounds, soft to palpation, non-tender, non-distended and no masses GI Narrative: Diffuse lower abdomen tenderness on palpation. There is no rebound, rigidity, or peritoneal signs. Abdomen is soft and not distended. Palpation: tender Back/Spine no CVA tenderness and no thoracic nor lumbar tenderness Extremity normal to inspection General Extremety ED: Negative for edema General Extremity: Negative for edema Neuro oriented x3, CN's II-XII intact bilaterally, no sensory deficits noted and gait normal Sensorium / Orientation: awake, alert, oriented to person, oriented to place and oriented to time Motor Exam: strength 5/5 throughout and strength abnormal Psych mental status grossly normal Skin no rashes or lesions noted and no wounds MDM MDM MDM Narrative Medical decision making narrative: Etiology of patient's abdominal pain unclear. Patient continues to complain of pain despite 2 doses of morphine and Zofran. Case discussed with hospitalist will evaluate patient for admission. Lab Data Attestation: I reviewed the patient's lab results. Labs: Laboratory Results - last 24 hr 01/10/21 01/10/21 01/10/21 16:19 16:19 16:40 WBC 8.4 RBC 4.87 Hgb 14.1 Hct 42.9 MCV 88.1 MCH 29.0 MCHC 32.9 RDW Std Deviation 42.0 RDW Coeff of Jordin 13.0 Plt Count 367 MPV 8.5 Immature Gran % (Auto) 0.400 Neut % (Auto) 82.3 H Lymph % (Auto) 13.5 L [place] % (Auto) 3.7 Eos % (Auto) 0.0 Baso % (Auto) 0.1 Absolute Neuts (auto) 6.9 Absolute Lymphs (auto) 1.13 Nucleated RBC % 0 Sodium 130 L Potassium 3.1 L Chloride 91 L Carbon Dioxide 28.0 Anion Gap 11 BUN 6 L Creatinine 0.36 L Estim Creat Clear Calc 46.43 Est GFR (MDRD) Af Amer 225 Est GFR (MDRD) Non-Af 186 BUN/Creatinine Ratio 16.5 Glucose 161 H Lactic Acid 1.0 Calcium 8.8 Total Bilirubin 0.40 AST 19 ALT 20 Alkaline Phosphatase 81 Total Protein 7.9 Albumin 3.9 Globulin 4.0 Albumin/Globulin Ratio 1.0 Lipase 20 L Urine Color Urine Clarity Urine pH Ur Specific [place] Urine Protein Urine Glucose (UA) Urine Ketones Urine Occult Blood Urine Nitrite Urine Bilirubin Urine Urobilinogen Ur Leukocyte Esterase Urine RBC Urine WBC Ur Squamous Epith Cells Urine Bacteria Urine Mucus 01/10/21 18:15 WBC RBC Hgb Hct MCV MCH MCHC RDW Std Deviation RDW Coeff of Jordin Plt Count MPV Immature Gran % (Auto) Neut % (Auto) Lymph % (Auto) [place] % (Auto) Eos % (Auto) Baso % (Auto) Absolute Neuts (auto) Absolute Lymphs (auto) Nucleated RBC % Sodium Potassium Chloride Carbon Dioxide Anion Gap BUN Creatinine Estim Creat Clear Calc Est GFR (MDRD) Af Amer Est GFR (MDRD) Non-Af BUN/Creatinine Ratio Glucose Lactic Acid Calcium Total Bilirubin AST ALT Alkaline Phosphatase Total Protein Albumin Globulin Albumin/Globulin Ratio Lipase Urine Color Straw Urine Clarity Clear Urine pH 8.0 Ur Specific [place] 1.010 Urine Protein 15 H Urine Glucose (UA) 50 H Urine Ketones 150 A* Urine Occult Blood 10 H Urine Nitrite Negative Urine Bilirubin Negative Urine Urobilinogen Normal Ur Leukocyte Esterase Negative Urine RBC 0-5 SEEN Urine WBC 0 SEEN Ur Squamous Epith Cells 0 SEEN Urine Bacteria 0 SEEN Urine Mucus 0 SEEN Radiography Diagnostic Testing: Radiology Impression Abdomen/Pelvis CT 01/10/21 16:20 IMPRESSION: 1. No acute inflammatory process or bowel obstruction. Stable exam, detailed above. Electronically Signed: Fabricio Garsia MD ([place]) at 17:44 EDT , Service support , Discharge Plan Triage Chief Complaint: Abd Pain ED Provider: Eva Simeon Dx/Rx/DC Orders Clinical Impression: Intractable abdominal pain Prescriptions: No Action Myrbetriq 25 mg tablet extended release 24 hr 25 mg PO BID RF: 0 omeprazole 20 mg capsule,delayed release(DR/EC) 20 mg PO DAILY RF: 0 sennosides-docusate sodium [Senexon-S] 8.6-50 mg tablet 2 tab PO BID RF: 0 calcium carbonate [Oyster Shell Calcium] 500 mg calcium (1,250 mg) tablet 500 mg PO BID RF: 0 fluticasone furoate-vilanterol 100-25 mcg/dose blister with device 2 puff INHALATION DAILY RF: 0 albuterol sulfate [Ventolin HFA] 90 mcg/actuation HFA aerosol inhaler 1 inh INHALATION BID PRN PRN (Reason: COPD) RF: 0 brimonidine 0.15 % drops 1 drp OPHTHALMIC BID RF: 0 benztropine 2 mg tablet 2 mg PO BID Qty: 60 RF: 3 oxcarbazepine 600 mg tablet 600 mg PO BID Qty: 60 RF: 3 phenobarbital 32.4 mg tablet 32.4 mg PO BID Qty: 60 RF: 3 aspirin 81 MG tablet,delayed release (DR/EC) 81 mg PO 1200 RF: 0 potassium chloride 20 MEQ tablet 20 meq PO BID RF: 0 levothyroxine 50 MCG tablet 50 mcg PO DAILY RF: 0 duloxetine 20 MG capsule,delayed release(DR/EC) 20 mg PO DAILY RF: 0 mirtazapine 7.5 mg tablet 7.5 mg PO QHS RF: 0 ropinirole 2 MG tablet 2 mg PO QHS RF: 0 nicotine 21 mg/24 hr patch 24 hour 1 patch TOPICAL DAILY RF: 0 latanoprost (PF) 7.5 ML drops 1 drp EACHEYE QHS RF: 0 acetaminophen 325 MG tablet 650 mg PO Q6H PRN PRN (Reason: Pain Score 1-10/Temp > 100.7 F) RF: 0 multivitamin Tablet 1 tab PO 1200 RF: 0 temazepam 30 mg Capsule 30 mg PO QHS PRN (Reason: Sleep) RF: 0 cholecalciferol (vitamin D3) 1,250 mcg (50,000 unit) capsule 1,250 mcg PO WE RF: 0 methadone 10 mg tablet 10 mg PO TID 5 Days Qty: 15 RF: 0 ferrous sulfate [FeroSul] 325 mg (65 mg iron) Tablet 325 mg PO 1200,1700 Qty: 60 RF: 1 ondansetron 4 mg Tablet,Disintegrating 4 mg PO Q6H PRN (Reason: Nausea) RF: 0 Primary Care Provider: Patel Veliz Chi Referrals: Patel Veliz Chi, MD [Primary Care Provider] - Disposition Disposition: Acute Care Hospital [facility]
[2021-01-10 16:26] LABS: Absolute Lymphocyte Count 1.13 X10^3/uL (0.83-4.51); Absolute Neutrophil Count 6.9 X10^3/uL (2.0-7.7); Basophil# 0.01 X10^3/uL; Basophil% 0.1 % (0-1); Hematocrit 42.9 % (37-47); Hemoglobin 14.1 g/dL (12.0-15.0); Lymphocyte # 1.13 X10^3/ul (0.83-4.51); Lymphocyte % 13.5 % (19-41); Mean Corp Hgb Conc 32.9 g/dL (32-36); Mean Corpuscular Volume 88.1 fL (81-99); Mean Platelet Vol. 8.5 fl (6.2-12.0); Monocyte# 0.31 X10^3/uL; Monocyte% 3.7 % (0-10); NRBC Flagged by Analyzer 0 % (0-5); Neutrophil # 6.91 X10^3/uL (2.7-7.7); Neutrophil % 82.3 % (47-70); Platelet Count 367 K/mm3 (150-450); Red Blood Count 4.87 M/mm3 (4.2-5.4); White Blood Count 8.4 K/mm3 (4.4-11.0)
[2021-01-10] MEDS: 0.9% Normal Saline 1,000 ML 125 ML IV (16:30)
[2021-01-10] MEDS: Morphine 4 MG/ML Syringe IV ×2 (16:30→18:32)
[2021-01-10] MEDS: Ondansetron 4 MG/2 ML Vial IV (16:32)
[2021-01-10 16:42] LABS: AST(SGOT) 19 U/L (15-37); Alanine Aminotransfer ALT/SGPT 20 U/L (13-56); Albumin, Serum 3.9 g/dL (3.2-5.0); Alkaline Phosphatase 81 U/L (45-117); Anion Gap 11 (5-15); BUN 6 mg/dL (7-18); BUN/Creat Ratio 16.5 RATIO (10-20); Calcium,Total 8.8 mg/dL (8.5-10.1); Chloride 91 mmol/L (98-107); Creatinine, Serum 0.36 mg/dL (0.55-1.02); EST Glomerular Filtration Rate 186 mL/min (>60); Est Glom Filt Rate - Afr Amer 225 mL/min (>60); Estimated Creatinine Clearance 46.43 ml/min; Glucose 161 mg/dL (74-106); Lipase 20 U/L (73-393); Potassium 3.1 mmol/L (3.5-5.1); Protein, Total 7.9 g/dL (6.4-8.2); Sodium Level 130 mmol/L (136-145)
[2021-01-10 18:17] LABS: Bacteria 0 SEEN /hpf (None Seen); Mucous, Urine 0 SEEN /hpf (<or=2+); Squamous Epithelial Cells - UA 0 SEEN /hpf (5-10); White Blood Cells 0 SEEN /hpf (0-5)
[2021-01-10 18:20] LABS: Color, Urine Straw (Yellow); Glucose, Dipstick 50 mg/dl (Normal); Leukocyte Esterase-Dipstick Negative /ul (Negative); Nitrite-Dipstick Negative (Negative); Occult Blood-Urine 10 /ul (Negative); Protein-Dipstick 15 mg/dl (Negative); Urine Bilirubin Dipstick Negative (Negative); Urine Clarity Clear (Clear); Urine Urobilinogen Normal (Normal)
[2021-01-10 18:24] LABS: Ketone-Dipstick 150 mg/dl (Negative)
[2021-01-10 18:29] LABS: Red Blood Cells-Urine 0-5 SEEN /hpf (0-5)
[2021-01-10 18:37] VITALS: BP 149/101; PULSE 76; RESP 18; O2SAT 97
[2021-01-10 19:00] VITALS: BP 120/71; PULSE 88; RESP 15; O2SAT 99
[2021-01-10 19:08] VITALS: BP 120/71; PULSE 88; RESP 16; TEMP 36.9; O2SAT 99
--- NOTE | 2021-01-10 19:17 | PCM.HP.STD ---
[facility] - General General Date of Admission: 01/10/21 HPI Narrative XANDER RAMIREZ, is a 70 F with a significant history of restless leg syndrome; seizure disorder; degenerative disc disease on chronic methadone who presents to the emergency department with a persistent lower abdominal pain that started a day before presentation. She describes her pain as aching. The pain worsens with movement and improves somewhat with rest. The pain is nonradiating. Associated with her symptoms is nausea and vomiting. She reported that her vomitus is coffee-ground. She reported last time her bowels moved on its own was 4-day before presentation. A day before presentation he was given an enema and she had a [place] meatball size bowel movements. [facility] Medical History Anxiety COPD (chronic obstructive pulmonary disease) Degenerative disc disease, lumbar Depression Gastritis Hypertension Insomnia Obstructive sleep apnea On home oxygen therapy Pain, chronic Physical debility Restless leg syndrome Seizure disorder Seizures Sleep apnea Smoker Smokes with greater than 40 pack year history Home Medications aspirin 81 mg PO 1200 01/07/19 [History Last Taken 11/22/20] duloxetine 20 mg PO DAILY 01/07/19 [History Last Taken 11/22/20] levothyroxine 50 mcg PO DAILY 01/07/19 [History Last Taken 11/21/20] potassium chloride 20 meq PO BID 01/07/19 [History Last Taken 11/22/20] mirtazapine 7.5 mg tablet 7.5 mg PO QHS tablet 02/21/19 [History Last Taken 11/21/20] latanoprost (PF) 1 drp EACHEYE QHS 08/08/19 [History Last Taken 11/21/20] nicotine 1 patch TOPICAL DAILY 08/08/19 [History Last Taken 11/22/20] ropinirole 2 mg PO QHS 08/08/19 [History Last Taken 11/21/20] acetaminophen 650 mg PO Q6H PRN PRN tablet 08/11/19 [Rx Last Taken Unknown] albuterol sulfate 90 mcg/actuation aerosol inhaler 1 inh INHALATION BID PRN PRN 05/13/20 [History Last Taken 11/21/20] calcium carbonate 500 mg calcium (1,250 mg) tablet 500 mg PO BID 05/13/20 [History Last Taken 11/22/20] fluticasone furoate 100 mcg-vilanterol 25 mcg/dose inhalation powder 2 puff INHALATION DAILY 05/13/20 [History Last Taken 11/22/20] mirabegron 25 mg tablet,extended release 24 hr 25 mg PO BID tab 05/13/20 [History Last Taken 11/22/20] omeprazole 20 mg capsule,delayed release 20 mg PO DAILY cap 05/13/20 [History Last Taken 11/22/20] sennosides 8.6 mg-docusate sodium 50 mg tablet 2 tab PO BID 05/13/20 [History Last Taken 11/22/20] brimonidine 0.15 % eye drops 1 drp OPHTHALMIC BID 07/09/20 [History Last Taken 11/22/20] benztropine 2 mg tablet 2 mg PO BID #60 tab 10/13/20 [Rx Last Taken 11/22/20] oxcarbazepine 600 mg tablet 600 mg PO BID #60 tab 10/13/20 [Rx Last Taken 11/22/20] phenobarbital 32.4 mg tablet 32.4 mg PO BID #60 tab 10/13/20 [Rx Last Taken 11/22/20] cholecalciferol (vitamin D3) 1,250 mcg PO WE 10/20/20 [History Last Taken 11/19/20] multivitamin 1 tab PO 1200 10/20/20 [History Last Taken 11/22/20] temazepam 30 mg PO QHS PRN 10/20/20 [History Last Taken 11/21/20] methadone 10 mg PO TID 5 Days #15 tab 10/25/20 [Rx Last Taken 11/22/20] ferrous sulfate [FeroSul] 325 mg PO 1200,1700 #60 tab 12/03/20 [Rx Last Taken Unknown] ondansetron 4 mg PO Q6H PRN 01/10/21 [History Last Taken Unknown] Allergy/AdvReac Type Severity Reaction Status Date / Time codeine Allergy Mild HIVES Verified 11/22/20 16:58 Penicillins Allergy Anaphylaxis Verified 11/22/20 16:58 Family History Mother Diabetes Heart disease Hypertension CAD (coronary artery disease) CVA (cerebral vascular accident) Thyroid disorder Father Colon cancer Surgical History History of bilateral carpal tunnel release History of bilateral cataract extraction History of blepharoplasty History of cystoscopy History of esophagogastroduodenoscopy (EGD) (~03/07/19) History of right hip replacement History of right salpingo-oophorectomy S/P appendectomy S/P laparoscopic cholecystectomy Status post ORIF of fracture of ankle Social History Smoking Status: Current every day smoker tobacco type: cigarettes Tobacco: How many years used: 50 alcohol intake: never substance use type: does not use ROS ROS Narrative Constitutional: Denies fever; chills; and change in weight Eyes: Denies blurry vision, change in eye color, change in vision, discharge from eye(s), double vision, erythema, eye pain, loss of vision or other HEENT: Denies abnormal hearing, dysphagia, ear pain, epistaxis, headache(s), hearing loss, nasal congestion, nasal discharge, post nasal drip, sinus pressure, sore throat or other Cardiovascular: Denies chest pain. Denies dyspnea on exertion, orthopnea and paroxysmal nocturnal dyspnea Respiratory/Chest: Denies cough, excessive phlegm production, shortness of breath with exertion and wheezing Gastrointestinal: Reports abdominal pain, nausea coffee ground emesis, and constipation. Genitourinary: Denies burning urination, difficulty urinating, dysuria, hematuria, nocturia, urinary frequency, urinary hesitancy, urinary incontinence, urinary urgency or other Musculoskeletal: Reports back pain (back pain). Denies myalgias, neck pain or other Neurologic: With repeated movements of head. Psychiatric: Denies anxiety, depression, homicidal ideation, suicidal ideation or other Endocrinology: Denies change in body appearance, cold intolerance, excessive sweating, heat intolerance, polydipsia, polyuria or other Hematologic/Lymphatic: Denies anemia, easy bleeding, easy bruising, lymphadenopathy or other Integumentary: Denies ulcer on buttocks. Allergic/Immunologic: Denies rhinitis, hives, eczema, asthma or other Vital Signs Vital Signs Vital Signs: 01/10/21 16:13 01/10/21 18:37 Temperature 98.5 F Temperature Source Oral Pulse Rate 104 H 76 Respiratory Rate 20 H 18 Blood Pressure 138/108 H 149/101 H Blood Pressure Mean 118 117 Pulse Ox 95 97 Oxygen Delivery Method Room Air Room Air Weight Weight: 82.8 kg Body Mass Index (BMI) 30.4 Physical Exam Narrative Physical exam: General: Well-nourished, well-developed, no acute distress Head: Normocephalic, atraumatic, no tenderness Eyes: PERRLA, EOMI ENT, no trauma, moist mucous membranes, no rhinorrhea Neck: Nontender, full range of motion, no spinal tenderness, deformities, step-off CVS: Regular rate and rhythm Respiratory no acute distress, clear to auscultation bilaterally, chest wall nontender, no wheezing Abdomen: Soft, nontender, nondistended, normal bowel sounds, no masses : Deferred Back: Nontender, no CVA tenderness, no midline spinal tenderness, deformities, step-offs Extremities: Nontender full range of motion, no trauma Skin: Normal color, no trauma, abrasions Neuro: Alert, oriented, cranial nerves II through XII grossly intact. With repeated movements of head. Psychiatry: Normal mood. Normal affect. Not depressed. Not anxious. Results Lab / Micro Data Result Diagrams: 01/10/21 16:19 01/10/21 16:19 Labs: Laboratory Results - last 24 hr 01/10/21 16:19: WBC 8.4, RBC 4.87, Hgb 14.1, Hct 42.9, MCV 88.1, MCH 29.0, MCHC 32.9, RDW Std Deviation 42.0, RDW Coeff of Jordin 13.0, Plt Count 367, MPV 8.5, Immature Gran % (Auto) 0.400, Neut % (Auto) 82.3 H, Lymph % (Auto) 13.5 L, [place] % (Auto) 3.7, Eos % (Auto) 0.0, Baso % (Auto) 0.1, Absolute Neuts (auto) 6.9, Absolute Lymphs (auto) 1.13, Nucleated RBC % 0 01/10/21 16:19: Sodium 130 L, Potassium 3.1 L, Chloride 91 L, Carbon Dioxide 28.0, Anion Gap 11, BUN 6 L, Creatinine 0.36 L, Estim Creat Clear Calc 46.43, Est GFR (MDRD) Af Amer 225, Est GFR (MDRD) Non-Af 186, BUN/Creatinine Ratio 16.5, Glucose 161 H, Calcium 8.8, Total Bilirubin 0.40, AST 19, ALT 20, Alkaline Phosphatase 81, Total Protein 7.9, Albumin 3.9, Globulin 4.0, Albumin/Globulin Ratio 1.0, Lipase 20 L 01/10/21 16:40: Lactic Acid 1.0 01/10/21 18:15: Urine Color Straw, Urine Clarity Clear, Urine pH 8.0, Ur Specific [place] 1.010, Urine Protein 15 H, Urine Glucose (UA) 50 H, Urine Ketones 150 A*, Urine Occult Blood 10 H, Urine Nitrite Negative, Urine Bilirubin Negative, Urine Urobilinogen Normal, Ur Leukocyte Esterase Negative, Urine RBC 0-5 SEEN, Urine WBC 0 SEEN, Ur Squamous Epith Cells 0 SEEN, Urine Bacteria 0 SEEN, Urine Mucus 0 SEEN Radiology Impression Abdomen/Pelvis CT 01/10/21 16:20 IMPRESSION: 1. No acute inflammatory process or bowel obstruction. Stable exam, detailed above. Electronically Signed: Fabricio Garsia MD ([place]) at 17:44 EDT , Service support , Assessment & Plan Assessment/Plan (1) Acute gastritis: QUALIFIERS: Gastritis type: other gastritis Gastritis bleeding: without bleeding Qualified Code(s): K29.00 - Acute gastritis without bleeding (2) Constipation: QUALIFIERS: Constipation type: unspecified constipation type Qualified Code(s): K59.00 - Constipation, unspecified PLAN: Acute gastritis N.p.o. except essential meds with sips of water. Normal saline with potassium maintenance rate ordered. At home p.o. Protonix to IV Protonix 40 mg IV twice daily Hypokalemia We will begin department labs showed potassium of 3.1. IV potassium ordered. Normal saline potassium ordered. Trend BMP. Acute constipation. Abdominal x-ray obtained outpatient showed some mild constipation. Radiology impression of abdomen pelvis CT: No acute infiltrative process or bowel obstruction. Actual abdomen/pelvis CT was independently reviewed and agree radiologist interpretation. Dulcolax suppository x1 ordered. Senokot-S twice daily ordered. Hyponatremia Low sodium of 138 likely secondary to oxcarbazepine. Normal saline hydration as above. Trend BMP Seizure disorder Oxcarbazepine continued Movement disorder Benztropine continued Tobacco abuse Reportedly last time she smoked was about a month ago she is still on nicotine patch and requesting for same. Nicotine patch prescribed. DVT prophylaxis: Subcutaneous Lovenox. Charges/Coding Multi Select Codes Visit Charges Observation E&M Codin Initial observation care L3
[2021-01-10 20:03] VITALS: BP 125/62; PULSE 86; RESP 20; TEMP 37.1; O2SAT 97
[2021-01-10 20:05] VITALS: BMI 29.7
--- NOTE | 2021-01-10 20:18 | NURSING ---
pt unsure of what medications she is taking. states we have it on file and nothing has changed
[2021-01-10] MEDS: 0.9% Saline Lock 10 ML Syringe IV (20:42)
[2021-01-10] MEDS: Methadone 10 MG Tablet PO (20:48)
[2021-01-10] MEDS: Temazepam 15 MG Capsule 30 MG PO (21:05)
[2021-01-10] MEDS: Mirtazapine 15 MG Tablet 7.5 MG PO (21:05)
[2021-01-10] MEDS: Pramipexole Di-HCl 1 MG Tablet PO (21:05)
[2021-01-10] MEDS: Bisacodyl 10 MG Suppository RC (21:05)
[2021-01-10] MEDS: Potassium Chloride 10mEq/100mL 10 MEQ/100 ML IV.SOLN. 100 MEQ IV BOLUS ×3 (21:13→23:27)
[2021-01-10] MEDS: BRIMONIDINE 0.15% 5 ML Bottle 1 DRP OPHTHALMIC (21:16)
[2021-01-10] MEDS: Latanoprost 0.005% 1 Bottle 1 DRP OPHTHALMIC (21:17)
[2021-01-10] MEDS: Potassium Chloride 40 MEQ in 0.9% Normal Saline 1,000 ML 100 MEQ IV (22:24)
[2021-01-10 23:35] LABS: Magnesium 2.2 mg/dL (1.6-2.6)
[2021-01-11] MEDS: Potassium Chloride 10mEq/100mL 10 MEQ/100 ML IV.SOLN. 100 MEQ IV BOLUS (00:27)
[2021-01-11] MEDS: Morphine 4 MG/ML Syringe IV (00:54)
[2021-01-11 02:00] VITALS: BP 108/60; PULSE 71; RESP 18; TEMP 36.6; O2SAT 97
[2021-01-11] MEDS: Morphine 2 MG/ML Syringe IV ×2 (05:22→09:21)
[2021-01-11] MEDS: Methadone 10 MG Tablet PO ×2 (06:04→14:09)
[2021-01-11 06:49] LABS: Absolute Lymphocyte Count 2.23 X10^3/uL (0.83-4.51); Absolute Neutrophil Count 4.9 X10^3/uL (2.0-7.7); Basophil# 0.03 X10^3/uL; Basophil% 0.4 % (0-1); Eosinophil# 0.02 X10^3/uL; Eosinophils% 0.2 % (0-5); Hematocrit 36.9 % (37-47); Hemoglobin 12.1 g/dL (12.0-15.0); Lymphocyte # 2.23 X10^3/ul (0.83-4.51); Lymphocyte % 27.1 % (19-41); Mean Corp Hgb Conc 32.8 g/dL (32-36); Mean Corpuscular Hgb 29.4 pg (27.0-32.0); Mean Corpuscular Volume 89.8 fL (81-99); Mean Platelet Vol. 8.2 fl (6.2-12.0); Monocyte# 1.05 X10^3/uL; Monocyte% 12.8 % (0-10); NRBC Flagged by Analyzer 0 % (0-5); Neutrophil # 4.87 X10^3/uL (2.7-7.7); Neutrophil % 59.3 % (47-70); Platelet Count 293 K/mm3 (150-450); RBC Distribution Width CV 13.2 % (11.6-14.6); RBC Distribution Width SD 43.8 fl (35.1-43.9); Red Blood Count 4.11 M/mm3 (4.2-5.4); White Blood Count 8.2 K/mm3 (4.4-11.0)
[2021-01-11 06:58] VITALS: PULSE 82; RESP 18; O2SAT 92
[2021-01-11] MEDS: Albuterol 2.5 MG/3 ML VIAL.NEB. INHALATION ×2 (06:58→13:20)
[2021-01-11] MEDS: Budesonide Respules 0.5 MG/2 ML AMPUL.NEB. INHALATION (06:58)
[2021-01-11 07:11] LABS: Anion Gap 6 (5-15); BUN 8 mg/dL (7-18); BUN/Creat Ratio 18.1 RATIO (10-20); Chloride 101 mmol/L (98-107); Creatinine, Serum 0.44 mg/dL (0.55-1.02); EST Glomerular Filtration Rate 149 mL/min (>60); Est Glom Filt Rate - Afr Amer 180 mL/min (>60); Estimated Creatinine Clearance 46.43 ml/min; Glucose 99 mg/dL (74-106); Potassium 3.6 mmol/L (3.5-5.1); Sodium Level 134 mmol/L (136-145)
[2021-01-11 09:05] VITALS: BP 102/83; PULSE 81; RESP 16; TEMP 37.1; O2SAT 99
[2021-01-11] MEDS: Potassium Chloride 40 MEQ in 0.9% Normal Saline 1,000 ML 100 MEQ IV (09:08)
[2021-01-11] MEDS: Bisacodyl 10 MG Suppository RC (09:13)
[2021-01-11] MEDS: OXcarbazepine 600 MG Tablet PO (09:14)
[2021-01-11] MEDS: Benztropine 2 MG Tablet PO (09:14)
[2021-01-11] MEDS: Phenobarbital 32.4 MG Tablet PO (09:17)
[2021-01-11] MEDS: BRIMONIDINE 0.15% 5 ML Bottle 1 DRP OPHTHALMIC (09:19)
--- NOTE | 2021-01-11 10:02 | NURSING ---
talked with Cheryl Cleaning Staff Supervisor, aware if physician requesting may dc back to [facility] today, no precert required.
--- NOTE | 2021-01-11 10:38 | PCM.TXEXTCAR ---
Documented by User: Rolando MARTINEZ 01/11/21 12:35 Diet 01/10/21 20:32 Diet: Nothing Per Oral Diet Comments: except meds with sips Therapies Physical Therapy: Eval and Treat Occupational Therapy: Eval and Treat Speech Therapy: Eval and Treat Problem/Diagnosis (1) Acute gastritis: Status: Acute (2) Constipation: Status: Acute Allergies/Procedures Done in Hospital Allergies codeine Allergy (Mild, Verified 01/10/21 20:20) HIVES Penicillins Allergy (Verified 01/10/21 20:20) Anaphylaxis Type of Care/Length of Stay Estimated LOS: More Than 30 Days Type of Care Needed: Skilled Rehab Potential: Fair Prognosis: Fair Additional Orders/Day of Discharge Day of Discharge: 01/11/21 Dietary and Speech Recommendations Dietitian Recommendations/Changes: Rec AMIE Cardiac as pt medically able. Follow Up Care Please follow up with your Primary Care Physician in: Within the next two weeks. Discharge Plan Admission Admit Date/Time: 01/10/21 19:17 Primary Reason for Your Visit: Abdominal pain Attending Provider: Valentín Harry Primary Care Provider: Patel Veliz Chi Discharge Orders/Prescriptions Prescriptions: Continued Myrbetriq 25 mg tablet extended release 24 hr 25 mg PO BID RF: 0 omeprazole 20 mg capsule,delayed release(DR/EC) 20 mg PO DAILY RF: 0 sennosides-docusate sodium [Senexon-S] 8.6-50 mg tablet 2 tab PO BID RF: 0 calcium carbonate [Oyster Shell Calcium] 500 mg calcium (1,250 mg) tablet 500 mg PO BID RF: 0 fluticasone furoate-vilanterol 100-25 mcg/dose blister with device 2 puff INHALATION DAILY RF: 0 albuterol sulfate [Ventolin HFA] 90 mcg/actuation HFA aerosol inhaler 1 inh INHALATION BID PRN PRN (Reason: COPD) RF: 0 brimonidine 0.15 % drops 1 drp OPHTHALMIC BID RF: 0 benztropine 2 mg tablet 2 mg PO BID Qty: 60 RF: 3 oxcarbazepine 600 mg tablet 600 mg PO BID Qty: 60 RF: 3 phenobarbital 32.4 mg tablet 32.4 mg PO BID Qty: 60 RF: 3 aspirin 81 MG tablet,delayed release (DR/EC) 81 mg PO 1200 RF: 0 potassium chloride 20 MEQ tablet 20 meq PO BID RF: 0 levothyroxine 50 MCG tablet 50 mcg PO DAILY RF: 0 duloxetine 20 MG capsule,delayed release(DR/EC) 20 mg PO DAILY RF: 0 mirtazapine 7.5 mg tablet 7.5 mg PO QHS RF: 0 ropinirole 2 MG tablet 2 mg PO QHS RF: 0 nicotine 21 mg/24 hr patch 24 hour 1 patch TOPICAL DAILY RF: 0 latanoprost (PF) 7.5 ML drops 1 drp EACHEYE QHS RF: 0 acetaminophen 325 MG tablet 650 mg PO Q6H PRN PRN (Reason: Pain Score 1-10/Temp > 100.7 F) RF: 0 multivitamin Tablet 1 tab PO 1200 RF: 0 temazepam 30 mg Capsule 30 mg PO QHS PRN (Reason: Sleep) RF: 0 cholecalciferol (vitamin D3) 1,250 mcg (50,000 unit) capsule 1,250 mcg PO WE RF: 0 methadone 10 mg tablet 10 mg PO TID 5 Days Qty: 15 RF: 0 ferrous sulfate [FeroSul] 325 mg (65 mg iron) Tablet 325 mg PO 1200,1700 Qty: 60 RF: 1 ondansetron 4 mg Tablet,Disintegrating 4 mg PO Q6H PRN (Reason: Nausea) RF: 0 Referrals / Follow Up: Patel Veliz Chi, MD [Primary Care Provider] - Within 2 Weeks Disposition Disposition (needs filled in before D/C Order can be placed): [facility] Documented by User: Dr. Valentín Harry MD 01/11/21 16:23 Allergies/Procedures Done in Hospital Allergies codeine Allergy (Mild, Verified 01/10/21 20:20) HIVES Penicillins Allergy (Verified 01/10/21 20:20) Anaphylaxis Discharge Plan Admission Admit Date/Time: 01/10/21 19:17 Primary Reason for Your Visit: Abdominal pain Attending Provider: Valentín Harry Primary Care Provider: Patel Veliz Chi Discharge Orders/Prescriptions Prescriptions: Continued Myrbetriq 25 mg tablet extended release 24 hr 25 mg PO BID RF: 0 omeprazole 20 mg capsule,delayed release(DR/EC) 20 mg PO DAILY RF: 0 sennosides-docusate sodium [Senexon-S] 8.6-50 mg tablet 2 tab PO BID RF: 0 calcium carbonate [Oyster Shell Calcium] 500 mg calcium (1,250 mg) tablet 500 mg PO BID RF: 0 fluticasone furoate-vilanterol 100-25 mcg/dose blister with device 2 puff INHALATION DAILY RF: 0 albuterol sulfate [Ventolin HFA] 90 mcg/actuation HFA aerosol inhaler 1 inh INHALATION BID PRN PRN (Reason: COPD) RF: 0 brimonidine 0.15 % drops 1 drp OPHTHALMIC BID RF: 0 benztropine 2 mg tablet 2 mg PO BID Qty: 60 RF: 3 oxcarbazepine 600 mg tablet 600 mg PO BID Qty: 60 RF: 3 phenobarbital 32.4 mg tablet 32.4 mg PO BID Qty: 60 RF: 3 aspirin 81 MG tablet,delayed release (DR/EC) 81 mg PO 1200 RF: 0 potassium chloride 20 MEQ tablet 20 meq PO BID RF: 0 levothyroxine 50 MCG tablet 50 mcg PO DAILY RF: 0 duloxetine 20 MG capsule,delayed release(DR/EC) 20 mg PO DAILY RF: 0 mirtazapine 7.5 mg tablet 7.5 mg PO QHS RF: 0 ropinirole 2 MG tablet 2 mg PO QHS RF: 0 nicotine 21 mg/24 hr patch 24 hour 1 patch TOPICAL DAILY RF: 0 latanoprost (PF) 7.5 ML drops 1 drp EACHEYE QHS RF: 0 acetaminophen 325 MG tablet 650 mg PO Q6H PRN PRN (Reason: Pain Score 1-10/Temp > 100.7 F) RF: 0 multivitamin Tablet 1 tab PO 1200 RF: 0 temazepam 30 mg Capsule 30 mg PO QHS PRN (Reason: Sleep) RF: 0 cholecalciferol (vitamin D3) 1,250 mcg (50,000 unit) capsule 1,250 mcg PO WE RF: 0 methadone 10 mg tablet 10 mg PO TID 5 Days Qty: 15 RF: 0 ferrous sulfate [FeroSul] 325 mg (65 mg iron) Tablet 325 mg PO 1200,1700 Qty: 60 RF: 1 ondansetron 4 mg Tablet,Disintegrating 4 mg PO Q6H PRN (Reason: Nausea) RF: 0 Referrals / Follow Up: Patel Veliz Chi, MD [Primary Care Provider] - Within 2 Weeks Disposition Disposition (needs filled in before D/C Order can be placed): [facility]
[2021-01-11] MEDS: DULoxetine Hcl 20 MG Capsule PO (12:06)
[2021-01-11] MEDS: Mirabegron 25 MG TAB.ER.24H PO (12:06)
[2021-01-11] MEDS: Senna/Docusate Sodium 1 Tablet 2 TABLET PO (12:07)
--- NOTE | 2021-01-11 13:15 | DS.PCM_ITS ---
Documented by User: Rolando MARTINEZ 01/11/21 13:22 Providers Date of Admission: 01/10/21 Primary Care Physician: Dr. Patel Veliz MD Reason For Visit: abd pain and n/v that started today/poss blood Diagnosis Discharge Diagnosis (1) Acute gastritis: Status: Acute Code(s): K29.00 - Acute gastritis without bleeding Qualifiers: Gastritis bleeding: without bleeding Gastritis type: other gastritis Qualified Code(s): K29.00 - Acute gastritis without bleeding (2) Constipation: Status: Acute Code(s): K59.00 - Constipation, unspecified Qualifiers: Constipation type: unspecified constipation type Qualified Code(s): K59.00 - Constipation, unspecified Medications at Discharge Home Medications aspirin 81 mg PO 1200 01/07/19 duloxetine 20 mg PO DAILY 01/07/19 levothyroxine 50 mcg PO DAILY 01/07/19 potassium chloride 20 meq PO BID 01/07/19 mirtazapine 7.5 mg tablet 7.5 mg PO QHS tablet 02/21/19 latanoprost (PF) 1 drp EACHEYE QHS 08/08/19 nicotine 1 patch TOPICAL DAILY 08/08/19 ropinirole 2 mg PO QHS 08/08/19 acetaminophen 650 mg PO Q6H PRN PRN tablet 08/11/19 albuterol sulfate 90 mcg/actuation aerosol inhaler 1 inh INHALATION BID PRN PRN 05/13/20 calcium carbonate 500 mg calcium (1,250 mg) tablet 500 mg PO BID 05/13/20 fluticasone furoate 100 mcg-vilanterol 25 mcg/dose inhalation powder 2 puff INHALATION DAILY 05/13/20 mirabegron 25 mg tablet,extended release 24 hr 25 mg PO BID tab 05/13/20 omeprazole 20 mg capsule,delayed release 20 mg PO DAILY cap 05/13/20 sennosides 8.6 mg-docusate sodium 50 mg tablet 2 tab PO BID 05/13/20 brimonidine 0.15 % eye drops 1 drp OPHTHALMIC BID 07/09/20 benztropine 2 mg tablet 2 mg PO BID #60 tab 10/13/20 oxcarbazepine 600 mg tablet 600 mg PO BID #60 tab 10/13/20 phenobarbital 32.4 mg tablet 32.4 mg PO BID #60 tab 10/13/20 cholecalciferol (vitamin D3) 1,250 mcg PO WE 10/20/20 multivitamin 1 tab PO 1200 10/20/20 temazepam 30 mg PO QHS PRN 10/20/20 methadone 10 mg PO TID 5 Days #15 tab 10/25/20 ferrous sulfate [FeroSul] 325 mg PO 1200,1700 #60 tab 12/03/20 ondansetron 4 mg PO Q6H PRN 01/10/21 Hospital Course Summary of Care Provided Minutes Spent on Discharge: 35 Hospital Course: Disposition: Patient to be discharged back to [facility]. 1) acute gastritis Diet advanced from n.p.o. to clears to regular diet, patient was able to tolerate without any complications. Plan; discharge back to SNF, continue omeprazole 20 mg p.o. daily. 2) hypokalemia Resolved, currently 3.6. 3) acute constipation CT obtained demonstrated no acute infiltrative process or evidence of bowel obstruction. Diet advanced and patient was able to tolerate. Patient was respons russell to stool softeners and suppositories ordered on admission. 4) hyponatremia Stable, currently 134. 5) seizure disorder Continue oxcarbazepine. 6) movement disorder Continue benztropine. Patient seen by Rolando Palencia PA-C, under the supervision of Dr. Harry. Physical Exam Narrative Patient is a 70-year-old female comfortably resting in bed, alert and orient x3. Denies any abdominal pain and has had a good bowel movements through progression of diet. Const alert, oriented x3 and no apparent distress HEENT normocephalic, head/scalp atraumatic and hearing grossly normal bilaterally Eyes PERRL, EOMs intact bilaterally and conjunctivae normal Neck no lymphadenopathy, supple and no JVD Resp normal respiratory effort, no retractions, no use of accessory muscles and clear to auscultation bilaterally Cardio regular rate, regular rhythm, no murmurs and no JVD GI normal to inspection, nondistended, normoactive bowel sounds, soft to palpation and non-tender Extremity normal to inspection, full ROM and no clubbing, cyanosis or edema Skin no rashes or lesions noted, no wounds and skin turgor normal Neuro CN's II-XII intact bilaterally Psych affect normal Medical Records Data Medical Nutrition Assessment Dietitian: Nutrition Therapy Diagnosis Start: 01/11/21 09:56 Freq: Status: Active Protocol: Document 01/11/21 10:30 BP (Rec: 01/11/21 10:30 BP [id number]) Nutrition Malnutrition Evidence of Malnutrition Exists No Intake Problem Inadequate Oral Intake Etiology related to altered GI function Signs/Symptoms as evidenced by pt with constipation & acute gastritis requiring NPO status. Status Active Problem Recommendation Dietitian Recommendations/Changes Rec [facility]IE Cardiac as pt medically able. Weight / BMI Weight Weight: 179 lb 0.246 oz Body Mass Index (BMI) 29.7 ABG / Lab / Microbiology Data Result Diagrams: 01/11/21 06:35 01/11/21 06:35 Laboratory: Laboratory Results - last 24 hr 01/10/21 16:19: WBC 8.4, RBC 4.87, Hgb 14.1, Hct 42.9, MCV 88.1, MCH 29.0, MCHC 32.9, RDW Std Deviation 42.0, RDW Coeff of Jordin 13.0, Plt Count 367, MPV 8.5, Immature Gran % (Auto) 0.400, Neut % (Auto) 82.3 H, Lymph % (Auto) 13.5 L, Tompkins % (Auto) 3.7, Eos % (Auto) 0.0, Baso % (Auto) 0.1, Absolute Neuts (auto) 6.9, Absolute Lymphs (auto) 1.13, Nucleated RBC % 0 01/10/21 16:19: Sodium 130 L, Potassium 3.1 L, Chloride 91 L, Carbon Dioxide 28.0, Anion Gap 11, BUN 6 L, Creatinine 0.36 L, Estim Creat Clear Calc 46.43, Est GFR (MDRD) Af Amer 225, Est GFR (MDRD) Non-Af 186, BUN/Creatinine Ratio 16.5, Glucose 161 H, Calcium 8.8, Total Bilirubin 0.40, AST 19, ALT 20, Alkaline Phosphatase 81, Total Protein 7.9, Albumin 3.9, Globulin 4.0, Albumin/Globulin Ratio 1.0, Lipase 20 L 01/10/21 16:19: Magnesium 2.2 01/10/21 16:40: Lactic Acid 1.0 01/10/21 18:15: Urine Color Straw, Urine Clarity Clear, Urine pH 8.0, Ur Specific [place] 1.010, Urine Protein 15 H, Urine Glucose (UA) 50 H, Urine Ketones 150 A*, Urine Occult Blood 10 H, Urine Nitrite Negative, Urine Bilirubin Negative, Urine Urobilinogen Normal, Ur Leukocyte Esterase Negative, Urine RBC 0-5 SEEN, Urine WBC 0 SEEN, Ur Squamous Epith Cells 0 SEEN, Urine Bacteria 0 SEEN, Urine Mucus 0 SEEN 01/11/21 06:35: WBC 8.2, RBC 4.11 L, Hgb 12.1, Hct 36.9 L, MCV 89.8, MCH 29.4, MCHC 32.8, RDW Std Deviation 43.8, RDW Coeff of Jordin 13.2, Plt Count 293, MPV 8.2, Immature Gran % (Auto) 0.200, Neut % (Auto) 59.3, Lymph % (Auto) 27.1, Tompkins % (Auto) 12.8 H, Eos % (Auto) 0.2, Baso % (Auto) 0.4, Absolute Neuts (auto) 4.9, Absolute Lymphs (auto) 2.23, Nucleated RBC % 0 01/11/21 06:35: Sodium 134 L, Potassium 3.6, Chloride 101, Carbon Dioxide 27.0, Anion Gap 6, BUN 8, Creatinine 0.44 L, Estim Creat Clear Calc 46.43, Est GFR (MDRD) Af Amer 180, Est GFR (MDRD) Non-Af 149, BUN/Creatinine Ratio 18.1, Glucose 99, Calcium 8.0 L Radiography Diagnostic Testing: Radiology Impression Abdomen/Pelvis CT 01/10/21 16:20 IMPRESSION: 1. No acute inflammatory process or bowel obstruction. Stable exam, detailed above. Electronically Signed: Fabricio Garsia MD ([place]) at 17:44 EDT , Service support , Meaningful Use Info Meaningful Use Diagnoses (Choose all that apply): None applicable Discharge Plan Admission Admit Date/Time: 01/10/21 19:17 Primary Reason for Your Visit: Abdominal pain Attending Provider: Valentín Harry Primary Care Provider: Patel Veliz Chi Discharge Orders/Prescriptions Prescriptions: Continued Myrbetriq 25 mg tablet extended release 24 hr 25 mg PO BID RF: 0 omeprazole 20 mg capsule,delayed release(DR/EC) 20 mg PO DAILY RF: 0 sennosides-docusate sodium [Senexon-S] 8.6-50 mg tablet 2 tab PO BID RF: 0 calcium carbonate [Oyster Shell Calcium] 500 mg calcium (1,250 mg) tablet 500 mg PO BID RF: 0 fluticasone furoate-vilanterol 100-25 mcg/dose blister with device 2 puff INHALATION DAILY RF: 0 albuterol sulfate [Ventolin HFA] 90 mcg/actuation HFA aerosol inhaler 1 inh INHALATION BID PRN PRN (Reason: COPD) RF: 0 brimonidine 0.15 % drops 1 drp OPHTHALMIC BID RF: 0 benztropine 2 mg tablet 2 mg PO BID Qty: 60 RF: 3 oxcarbazepine 600 mg tablet 600 mg PO BID Qty: 60 RF: 3 phenobarbital 32.4 mg tablet 32.4 mg PO BID Qty: 60 RF: 3 aspirin 81 MG tablet,delayed release (DR/EC) 81 mg PO 1200 RF: 0 potassium chloride 20 MEQ tablet 20 meq PO BID RF: 0 levothyroxine 50 MCG tablet 50 mcg PO DAILY RF: 0 duloxetine 20 MG capsule,delayed release(DR/EC) 20 mg PO DAILY RF: 0 mirtazapine 7.5 mg tablet 7.5 mg PO QHS RF: 0 ropinirole 2 MG tablet 2 mg PO QHS RF: 0 nicotine 21 mg/24 hr patch 24 hour 1 patch TOPICAL DAILY RF: 0 latanoprost (PF) 7.5 ML drops 1 drp EACHEYE QHS RF: 0 acetaminophen 325 MG tablet 650 mg PO Q6H PRN PRN (Reason: Pain Score 1-10/Temp > 100.7 F) RF: 0 multivitamin Tablet 1 tab PO 1200 RF: 0 temazepam 30 mg Capsule 30 mg PO QHS PRN (Reason: Sleep) RF: 0 cholecalciferol (vitamin D3) 1,250 mcg (50,000 unit) capsule 1,250 mcg PO WE RF: 0 methadone 10 mg tablet 10 mg PO TID 5 Days Qty: 15 RF: 0 ferrous sulfate [FeroSul] 325 mg (65 mg iron) Tablet 325 mg PO 1200,1700 Qty: 60 RF: 1 ondansetron 4 mg Tablet,Disintegrating 4 mg PO Q6H PRN (Reason: Nausea) RF: 0 Referrals / Follow Up: Jose Alfredo,Patel Chi, MD [Primary Care Provider] - Within 2 Weeks Disposition Disposition (needs filled in before D/C Order can be placed): [facility] Documented by User: Dr. Valentín Harry MD 01/11/21 16:29 Providers Date of Admission: 01/10/21 Reason For Visit: abd pain and n/v that started today/poss blood Medications at Discharge Home Medications aspirin 81 mg PO 1200 01/07/19 duloxetine 20 mg PO DAILY 01/07/19 levothyroxine 50 mcg PO DAILY 01/07/19 potassium chloride 20 meq PO BID 01/07/19 mirtazapine 7.5 mg tablet 7.5 mg PO QHS tablet 02/21/19 latanoprost (PF) 1 drp EACHEYE QHS 08/08/19 nicotine 1 patch TOPICAL DAILY 08/08/19 ropinirole 2 mg PO QHS 08/08/19 acetaminophen 650 mg PO Q6H PRN PRN tablet 08/11/19 albuterol sulfate 90 mcg/actuation aerosol inhaler 1 inh INHALATION BID PRN PRN 05/13/20 calcium carbonate 500 mg calcium (1,250 mg) tablet 500 mg PO BID 05/13/20 fluticasone furoate 100 mcg-vilanterol 25 mcg/dose inhalation powder 2 puff INH ALATION DAILY 05/13/20 mirabegron 25 mg tablet,extended release 24 hr 25 mg PO BID tab 05/13/20 omeprazole 20 mg capsule,delayed release 20 mg PO DAILY cap 05/13/20 sennosides 8.6 mg-docusate sodium 50 mg tablet 2 tab PO BID 05/13/20 brimonidine 0.15 % eye drops 1 drp OPHTHALMIC BID 07/09/20 benztropine 2 mg tablet 2 mg PO BID #60 tab 10/13/20 oxcarbazepine 600 mg tablet 600 mg PO BID #60 tab 10/13/20 phenobarbital 32.4 mg tablet 32.4 mg PO BID #60 tab 10/13/20 cholecalciferol (vitamin D3) 1,250 mcg PO WE 10/20/20 multivitamin 1 tab PO 1200 10/20/20 temazepam 30 mg PO QHS PRN 10/20/20 methadone 10 mg PO TID 5 Days #15 tab 10/25/20 ferrous sulfate [FeroSul] 325 mg PO 1200,1700 #60 tab 12/03/20 ondansetron 4 mg PO Q6H PRN 01/10/21 Hospital Course Summary of Care Provided Hospital Course: This patient was seen in conjunction with JUAN Zamarripa. I have independently interviewed and examined the patient and reviewed pertinent history, examination findings, laboratory and plan of management. I have reviewed the note and agree with the documented findings with the few additional points. In brief, patient is admitted for nausea, vomiting and mild upper abdominal cramps after she had food last night. Symptoms have resolved. CT abdomen did not show acute inflammatory process or bowel obstruction. 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 She is on benztropine, oxcarba zepine and ropinirole. Discharge medication reconciliation done. Discharge follow-up instructions c ompleted. Discharge process discussed with the patient and all questions were answered to patient's satisfaction. Discharge to assisted living center. Total time spent, exact 35 minutes on discharge meds reconciliation, examination, coordination of care with nurses and ancillary staff, review of imaging and blood test and discussion with the patient on follow-up instructions I have discussed my assessment with JUAN Zamarripa and orders have been reviewed. Clinical Impression(s) from Imaging Studies Abdomen/Pelvis CT 01/10/21 16:20 IMPRESSION: 1. No acute inflammatory process or bowel obstruction. Stable exam, detailed above. Physical Exam Narrative Patient has history of hiatus hernia. She had some food with cataract yesterday and then started having abdominal cramps, nausea and vomiting. Currently no abdominal pain. Nausea and vomiting has resolved. She also has extrapyramidal disorder of unclear type. Physical exam General: Alert, Oriented x3, Cooperative HEENT: Atraumatic, PERRLA, EOMI, Normocephalic Oral: No Gingival or Mucosal Lesions/ Ulcerations Neck: Supple, No JVD, Negative Carotid Bruits Lungs: Air entry diminished in bilateral lung bases. No crepitation/rhonchi Cardiovascular: Regular rate, Regular Rhythm, Normal S1, Normal S2, No murmurs Abdomen: Bowel Sounds Present, Soft, Non Tender, Non-Distended. No palpable mass. : No renal angle tenderness. No suprapubic tenderness. Extremities: No edema, Capillary Refill Less than 3 Seconds Skin: No rashes, No breakdown Musculoskeletal: No Tenderness to Palpation of Joints or Extremities Neurological: Cranial nerves II-XII grossly intact, Deep Tendon Reflexes 2+/4. Involuntary of cervical, head and neck dyskinesia/dystonia. Unstable gait, chronic. Uses walker Psych/Mental Status: Normal Affect, Appropriate. ABG / Lab / Microbiology Data Result Diagrams: 01/11/21 06:35 01/11/21 06:35 Discharge Plan Admission Admit Date/Time: 01/10/21 19:17 Primary Reason for Your Visit: Abdominal pain Attending Provider: Valentín Harry Primary Care Provider: Patel Vleiz Chi Discharge Orders/Prescriptions Prescriptions: Continued Myrbetriq 25 mg tablet extended release 24 hr 25 mg PO BID RF: 0 omeprazole 20 mg capsule,delayed release(DR/EC) 20 mg PO DAILY RF: 0 sennosides-docusate sodium [Senexon-S] 8.6-50 mg tablet 2 tab PO BID RF: 0 calcium carbonate [Oyster Shell Calcium] 500 mg calcium (1,250 mg) tablet 500 mg PO BID RF: 0 fluticasone furoate-vilanterol 100-25 mcg/dose blister with device 2 puff INHALATION DAILY RF: 0 albuterol sulfate [Ventolin HFA] 90 mcg/actuation HFA aerosol inhaler 1 inh INHALATION BID PRN PRN (Reason: COPD) RF: 0 brimonidine 0.15 % drops 1 drp OPHTHALMIC BID RF: 0 benztropine 2 mg tablet 2 mg PO BID Qty: 60 RF: 3 oxcarbazepine 600 mg tablet 600 mg PO BID Qty: 60 RF: 3 phenobarbital 32.4 mg tablet 32.4 mg PO BID Qty: 60 RF: 3 aspirin 81 MG tablet,delayed release (DR/EC) 81 mg PO 1200 RF: 0 potassium chloride 20 MEQ tablet 20 meq PO BID RF: 0 levothyroxine 50 MCG tablet 50 mcg PO DAILY RF: 0 duloxetine 20 MG capsule,delayed release(DR/EC) 20 mg PO DAILY RF: 0 mirtazapine 7.5 mg tablet 7.5 mg PO QHS RF: 0 ropinirole 2 MG tablet 2 mg PO QHS RF: 0 nicotine 21 mg/24 hr patch 24 hour 1 patch TOPICAL DAILY RF: 0 latanoprost (PF) 7.5 ML drops 1 drp EACHEYE QHS RF: 0 acetaminophen 325 MG tablet 650 mg PO Q6H PRN PRN (Reason: Pain Score 1-10/Temp > 100.7 F) RF: 0 multivitamin Tablet 1 tab PO 1200 RF: 0 temazepam 30 mg Capsule 30 mg PO QHS PRN (Reason: Sleep) RF: 0 cholecalciferol (vitamin D3) 1,250 mcg (50,000 unit) capsule 1,250 mcg PO WE RF: 0 methadone 10 mg tablet 10 mg PO TID 5 Days Qty: 15 RF: 0 ferrous sulfate [FeroSul] 325 mg (65 mg iron) Tablet 325 mg PO 1200,1700 Qty: 60 RF: 1 ondansetron 4 mg Tablet,Disintegrating 4 mg PO Q6H PRN (Reason: Nausea) RF: 0 Referrals / Follow Up: Patel Veliz Chi, MD [Primary Care Provider] - Within 2 Weeks Disposition Disposition (needs filled in before D/C Order can be placed): [facility] Charges/Coding Visit Charges Inpatient E&M: 63410 Disch Hosp
[2021-01-11 13:20] VITALS: PULSE 83; RESP 18
--- NOTE | 2021-01-11 14:04 | NURSING ---
[facility] called to arrange transport. aware ETA: [id number]. primary RN updated.
[2021-01-11 14:15] VITALS: BP 125/52; PULSE 97; RESP 16; TEMP 36.8; O2SAT 98
--- NOTE | 2021-01-11 14:32 | NURSING ---
report called to [facility], aware that transport will be here to pick pt up [phone].
== END 2021-01-11 15:07 | disposition skilled nursing facility (03) ==
LOC: ED 19:10 → MS3 19:20
PROVIDERS: Admitting Provider Hospitalist; Emergency Provider Emergency Medicine; PCP Family Medicine Geriatric Medicine; Visit Provider Internal Medicine
DX: K29.00 Acute gastritis without bleeding (principal); K59.09 Other constipation; G40.909 Epilepsy, unspecified, not intractable, without status epilepticus; E87.1 Hypo-osmolality and hyponatremia; G25.9 Extrapyramidal and movement disorder, unspecified; E87.6 Hypokalemia; F41.9 Anxiety disorder, unspecified; G25.81 Restless legs syndrome; J44.9 Chronic obstructive pulmonary disease, unspecified; F32.9 Major depressive disorder, single episode, unspecified; M51.36 Other intervertebral disc degeneration, lumbar region; I10 Essential (primary) hypertension; F17.210 Nicotine dependence, cigarettes, uncomplicated; G89.29 Other chronic pain; G47.33 Obstructive sleep apnea (adult) (pediatric); Z99.81 Dependence on supplemental oxygen; Z79.899 Other long term (current) drug therapy; Z79.82 Long term (current) use of aspirin; Z79.51 Long term (current) use of inhaled steroids; Z79.891 Long term (current) use of opiate analgesic
CPT/HCPCS: 36415; 74177; 80048; 80053; 81001; 83605; 83690; 83735; 85025; 94640; 96361; 96365; 96366; 96367; 96375; 96376; 97802; 99218; 99285; 99406; J7030; J7040; P9612; Q9967; A4216; G0378; J2405

== ENCOUNTER 2021-01-16 13:13 | Inpatient (IN) | payer MEDICARE, MEDICAID, SELFPAY ==
[2021-01-16] VITALS (20 sets, daily range): BP systolic 62–140; BP diastolic 35–103; PULSE 86–109; RESP 15–19; TEMP 35.9–36.8; O2SAT 92–100; BMI 31.0; BMI 29.5
--- NOTE | 2021-01-16 14:01 | EKG12_ITS ---
Test Reason : ABD PAIN Blood Pressure : / mmHG Vent. Rate : 100 BPM Atrial Rate : 100 BPM P-R Int : 150 ms QRS Dur : 084 ms QT Int : 410 ms P-R-T Axes : 049 -10 -25 degrees QTc Int : 528 ms Normal sinus rhythm Possible Left atrial enlargement Septal infarct, age undetermined T wave abnormality, consider anterolateral ischemia Prolonged QT Abnormal ECG Confirmed by JAMES LEACH, LUZ ([id number]), editor managing director WESLY CASTAÑEDA ([id number]) on 01/22/2021 1:13:25 PM Referred By: DANIEL Confirmed By:LUZ RAMIREZ MD
[2021-01-16] MEDS: Ondansetron 4 MG/2 ML Vial IV (14:23)
[2021-01-16] MEDS: 0.9% Normal Saline 1,000 ML 150 ML IV ×2 (14:23→20:11)
[2021-01-16] MEDS: HYDROmorphone 1 MG/ML Syringe IV (14:24)
[2021-01-16 14:29] LABS: Absolute Lymphocyte Count 2.18 X10^3/uL (0.83-4.51); Absolute Neutrophil Count 5.7 X10^3/uL (2.0-7.7); Basophil# 0.04 X10^3/uL; Basophil% 0.5 % (0-1); Eosinophil# 0.05 X10^3/uL; Eosinophils% 0.6 % (0-5); Hematocrit 40.7 % (37-47); Hemoglobin 13.3 g/dL (12.0-15.0); Lymphocyte # 2.18 X10^3/ul (0.83-4.51); Lymphocyte % 25.2 % (19-41); Mean Corp Hgb Conc 32.7 g/dL (32-36); Mean Corpuscular Hgb 29.2 pg (27.0-32.0); Mean Corpuscular Volume 89.5 fL (81-99); Mean Platelet Vol. 8.8 fl (6.2-12.0); Monocyte# 0.71 X10^3/uL; Monocyte% 8.2 % (0-10); NRBC Flagged by Analyzer 0 % (0-5); Neutrophil # 5.65 X10^3/uL (2.7-7.7); Neutrophil % 65.3 % (47-70); Platelet Count 345 K/mm3 (150-450); RBC Distribution Width CV 13.4 % (11.6-14.6); RBC Distribution Width SD 44.2 fl (35.1-43.9); Red Blood Count 4.55 M/mm3 (4.2-5.4); White Blood Count 8.7 K/mm3 (4.4-11.0)
--- NOTE | 2021-01-16 14:50 | RAD_ITS ---
EXAM: XR CHEST, 1 VIEW CLINICAL INDICATION: Chest pain. TECHNIQUE: Frontal view of the chest. This report was created using [email or web address] report generation technology. COMPARISON: 10/20/2020. FINDINGS: LUNGS AND PLEURAL SPACES: Rotated chest positioning. Mild right upper lobe emphysema. No confluent infiltrates. Pulmonary hyperinflation with flattening of the hemidiaphragms. No pneumothorax. No effusion. HEART: Unremarkable. Cardiac silhouette not enlarged. MEDIASTINUM: Central airways and mediastinal contour are unremarkable. BONES/JOINTS: Degenerative osteoarthrosis of the left glenohumeral articulation is unchanged. SOFT TISSUES: Unremarkable. RAD/Chest 1 View (Portable) IMPRESSION: 1. No acute cardiopulmonary pathology. 2. Mild COPD with right upper lobe emphysema. 3. 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 4. No interval change when compared to 10/20/2020. Electronically Signed: Dexter Zavaleta MD at 15:11 EDT , Service support ,
[2021-01-16 14:56] LABS: AST(SGOT) 21 U/L (15-37); Alanine Aminotransfer ALT/SGPT 25 U/L (13-56); Albumin, Serum 3.6 g/dL (3.2-5.0); Alkaline Phosphatase 83 U/L (45-117); Anion Gap 6 (5-15); BUN 10 mg/dL (7-18); BUN/Creat Ratio 19.8 RATIO (10-20); Bilirubin, Direct 0.12 mg/dL (0.00-0.30); Calcium,Total 8.5 mg/dL (8.5-10.1); Chloride 94 mmol/L (98-107); EST Glomerular Filtration Rate 128 mL/min (>60); Est Glom Filt Rate - Afr Amer 155 mL/min (>60); Estimated Creatinine Clearance 46.43 ml/min; Glucose 145 mg/dL (74-106); Lipase 23 U/L (73-393); Potassium 3.6 mmol/L (3.5-5.1); Protein, Total 7.6 g/dL (6.4-8.2); Sodium Level 129 mmol/L (136-145); Troponin-I HS 103.9 pg/mL (3.0-53.7)
--- NOTE | 2021-01-16 15:01 | EKG12_ITS ---
Test Reason : REPEAT EKG Blood Pressure : / mmHG Vent. Rate : 096 BPM Atrial Rate : 096 BPM P-R Int : 142 ms QRS Dur : 082 ms QT Int : 416 ms P-R-T Axes : 059 002 -30 degrees QTc Int : 525 ms Normal sinus rhythm Septal infarct , age undetermined T wave abnormality, consider anterolateral ischemia Prolonged QT Abnormal ECG Confirmed by JAMES LEACH, LUZ ([id number]), scientific publications editor WESLY CASTAÑEDA ([id number]) on 01/22/2021 1:13:43 PM Referred By: DANIEL Confirmed By:LUZ RAMIREZ MD
--- NOTE | 2021-01-16 15:34 | EX.ED.DYSGE1 ---
[facility] <Dr. Lola Fuentes MD - Last Filed: 01/16/21 15:41> History of Present Illness Informant: patient Onset/Context/Timing Onset: Days Context: Gradual Onset Timing: Waxes and wanes Current Severity: Severe Maximum Severity: Severe Narrative Narrative: Patient presents secondary epigastric abdominal pain. Pain is been ongoing for at least 6 days. She was seen in the ER at that time and had lab work and a CT scan with IV contrast. No significant findings were noted and she was treated for gastritis. [facility] with continued pain that is now radiating up in her chest. She is on chronic methadone for back pain and refused this medication today stating that she is concerned that her symptoms are secondary to constipation. She denies any cardiac history. [facility] <Dr. Lola Fuentes MD - Last Filed: 01/16/21 15:41> [facility] Medical History Anxiety COPD (chronic obstructive pulmonary disease) Degenerative disc disease, lumbar Depression Diverticulosis DVT (deep venous thrombosis) Gastritis Hypertension Insomnia Obstructive sleep apnea On home oxygen therapy Pain, chronic Physical debility Restless leg syndrome Seizure disorder Sleep apnea Smoker Spinal stenosis Home Medications aspirin 81 mg PO 1200 01/07/19 [History Last Taken 11/22/20] duloxetine 20 mg PO DAILY 01/07/19 [History Last Taken 11/22/20] levothyroxine 50 mcg PO DAILY 01/07/19 [History Last Taken 11/21/20] potassium chloride 20 meq PO BID 01/07/19 [History Last Taken 11/22/20] mirtazapine 7.5 mg tablet 7.5 mg PO QHS tablet 02/21/19 [History Last Taken 11/21/20] nicotine 1 patch TOPICAL DAILY 08/08/19 [History Last Taken 11/22/20] ropinirole 2 mg PO QHS 08/08/19 [History Last Taken 11/21/20] acetaminophen 650 mg PO Q6H PRN PRN tablet 08/11/19 [Rx Last Taken Unknown] albuterol sulfate 90 mcg/actuation aerosol inhaler 1 inh INHALATION BID PRN PRN 05/13/20 [History Last Taken 11/21/20] calcium carbonate 500 mg calcium (1,250 mg) tablet 500 mg PO BID 05/13/20 [History Last Taken 11/22/20] fluticasone furoate 100 mcg-vilanterol 25 mcg/dose inhalation powder 2 puff INHALATION DAILY 05/13/20 [History Last Taken 11/22/20] mirabegron 25 mg tablet,extended release 24 hr 25 mg PO BID tab 05/13/20 [History Last Taken 11/22/20] omeprazole 20 mg capsule,delayed release 20 mg PO DAILY cap 05/13/20 [History Last Taken 11/22/20] sennosides 8.6 mg-docusate sodium 50 mg tablet 2 tab PO BID 05/13/20 [History Last Taken 11/22/20] brimonidine 0.15 % eye drops 1 drp OPHTHALMIC BID 07/09/20 [History Last Taken 11/22/20] benztropine 2 mg tablet 2 mg PO BID #60 tab 10/13/20 [Rx Last Taken 11/22/20] oxcarbazepine 600 mg tablet 600 mg PO BID #60 tab 10/13/20 [Rx Last Taken 11/22/20] phenobarbital 32.4 mg tablet 32.4 mg PO BID #60 tab 10/13/20 [Rx Last Taken 11/22/20] cholecalciferol (vitamin D3) 1,250 mcg PO WE 10/20/20 [History Last Taken 11/19/20] multivitamin 1 tab PO 1200 10/20/20 [History Last Taken 11/22/20] temazepam 30 mg PO QHS PRN 10/20/20 [History Last Taken 11/21/20] methadone 10 mg PO TID 5 Days #15 tab 10/25/20 [Rx Last Taken 11/22/20] ferrous sulfate [FeroSul] 325 mg PO 1200,1700 #60 tab 12/03/20 [Rx Last Taken Unknown] ondansetron 4 mg PO Q6H PRN 01/10/21 [History Last Taken Unknown] sulfamethoxazole-trimethoprim [Bactrim DS] 1 tab PO BID 01/16/21 [History Last Taken Unknown] Allergy/AdvReac Type Severity Reaction Status Date / Time codeine Allergy Mild HIVES Verified 01/16/21 13:14 Penicillins Allergy Anaphylaxis Verified 01/16/21 13:14 Family History Mother Diabetes Heart disease Hypertension CAD (coronary artery disease) CVA (cerebral vascular accident) Thyroid disorder Father Colon cancer Surgical History History of bilateral carpal tunnel release History of bilateral cataract extraction History of blepharoplasty History of cystoscopy History of esophagogastroduodenoscopy (EGD) (~03/07/19) History of right hip replacement History of right salpingo-oophorectomy S/P appendectomy S/P laparoscopic cholecystectomy Status post ORIF of fracture of ankle Social History Smoking Status: Former smoker Tobacco: How many years used: 50 alcohol intake: never substance use type: does not use ROS <Dr. Lola Fuentes MD - Last Filed: 01/16/21 15:41> ROS ED Constitutional Constitutional ED: Denies chills or fever(s) Eyes Eyes: Denies change in vision ENT ENT ED: Denies sore throat Cardiovascular Cardiovascular: Reports chest pain Respiratory/Chest Respiratory/Chest: Denies cough or dyspnea Gastrointestinal Gastrointestinal: Reports abdominal pain, constipation and nausea; Denies diarrhea or vomiting Genitourinary Genitourinary ED: Denies dysuria Musculoskeletal Musculoskeletal: Denies back pain Integumentary Denies rash Neurologic Neurologic: Denies headache(s) or weakness Psychiatric Psychiatric: Denies anxiety or depression Endocrine Endocrinology: Denies polydipsia or polyuria Allergic/Immunologic Allergic/Immunologic ED: Denies urticaria EXAM <Dr. Lola Fuentes MD - Last Filed: 01/16/21 15:41> Physical Exam Const Vital Signs: 01/16/21 13:14 01/16/21 15:24 01/16/21 15:52 Temperature 98.3 F 96.6 F L Temperature Source Oral Temporal Pulse Rate 102 H 96 96 Respiratory Rate 17 15 19 H Blood Pressure 140/103 H 134/95 H Blood Pressure Mean 115 108 Pulse Ox 97 95 95 Oxygen Delivery Method Room Air Room Air Room Air Positive well nourished and well developed General Appearance ED: well developed HEENT Reports normocephalic and head/scalp atraumatic Eyes PERRL and EOMs intact bilaterally Neck supple Chest Wall inspection of chest normal and palpation of chest normal Chest Narrative: No chest wall tenderness. Resp normal respiratory effort and clear to auscultation bilaterally Cardio regular rate and regular rhythm GI Palpation: soft and tender epigastric Extremity normal to inspection Neuro oriented x3 and no sensory deficits noted Sensorium / Orientation: alert Motor Exam: strength 5/5 throughout Psych Mood & Affect: anxious Skin no rashes or lesions noted <Dr. Asha Jones MD - Last Filed: 01/16/21 17:12> Physical Exam Const Vital Signs: 01/16/21 13:14 01/16/21 15:24 01/16/21 15:52 Temperature 98.3 F 96.6 F L Temperature Source Oral Temporal Pulse Rate 102 H 96 96 Respiratory Rate 17 15 19 H Blood Pressure 140/103 H 134/95 H Blood Pressure Mean 115 108 Pulse Ox 97 95 95 Oxygen Delivery Method Room Air Room Air Room Air MDM <Dr. Lola Fuentes MD - Last Filed: 01/16/21 15:41> MDM MDM Narrative Medical decision making narrative: Patient was given IV fluids, Dilaudid, labs, EKG, chest x-ray. I did review her previous recent work-up. Lab Data Attestation: I reviewed the patient's lab results. Labs: Laboratory Results - last 24 hr 01/16/21 01/16/21 01/16/21 13:43 13:43 14:20 WBC 8.7 RBC 4.55 Hgb 13.3 Hct 40.7 MCV 89.5 MCH 29.2 MCHC 32.7 RDW Std Deviation 44.2 H RDW Coeff of Jordin 13.4 Plt Count 345 MPV 8.8 Immature Gran % (Auto) 0.200 Neut % (Auto) 65.3 Lymph % (Auto) 25.2 [place] % (Auto) 8.2 Eos % (Auto) 0.6 Baso % (Auto) 0.5 Absolute Neuts (auto) 5.7 Absolute Lymphs (auto) 2.18 Nucleated RBC % 0 Sodium 129 L Potassium 3.6 Chloride 94 L Carbon Dioxide 29.0 Anion Gap 6 BUN 10 Creatinine 0.50 L Estim Creat Clear Calc 46.43 Est GFR (MDRD) Af Amer 155 Est GFR (MDRD) Non-Af 128 BUN/Creatinine Ratio 19.8 Glucose 145 H Calcium 8.5 Magnesium 2.3 Total Bilirubin 0.30 Direct Bilirubin 0.12 AST 21 ALT 25 Alkaline Phosphatase 83 Troponin I High Sens 103.9 H* Total Protein 7.6 Albumin 3.6 Globulin 4.0 Lipase 23 L Radiography Chest X-Ray - ED: 1 View, Read by ED Physician and Chronic Changes Diagnostic Testing: Radiology Impression Chest X-Ray 01/16/21 14:50 IMPRESSION: 1. No acute cardiopulmonary pathology. 2. Mild COPD with right upper lobe emphysema. 3. 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 4. No interval change when compared to 10/20/2020. Electronically Signed: Dexter Zavaleta MD at 15:11 EDT , Service support , EKG Initial EKG: Attestation: I personally reviewed and interpreted this EKG as follows: Interpretation: Sinus Rhythm (Sinus at 100 bpm. Significant T wave inversion noted in the anterior lateral leads. This is a new change when compared to prior study of October 20, 2020. Mild, 1/[address] elevation in V2 and V3.) Follow-up EKG: Attestation: I personally reviewed and interpreted this EKG as follows: Interpretation: Sinus Rhythm (Sinus at 96. Continue deep T wave inversions with mild ST elevation in V2 V3. Study limited by motion artifact.) Treatment and Re-Evaluation Comments:: On repeat evaluation patient did note some improvement in her pain with Dilaudid. She states the pain is still waxing and waning and she still appears quite uncomfortable. Test results are discussed with her. I did discuss that she will likely need a heart cath at some point. I sent the images to Dr. Moss, on-call for cardiology. He recommended sending the images to the STEMI doc for review. I did speak with Dr. Jones. He will begin to take the patient to the In[facility] from the emergency room. This is not a STEMI alert but is going straight to the In[facility]. Other than aspirin he did not want any specific medications given until they could look at the cath. I will speak with hospitalist as well. <Dr. Asha Jones MD - Last Filed: 01/16/21 17:12> MDM Lab Data Labs: Laboratory Results - last 24 hr 01/16/21 01/16/21 01/16/21 13:43 13:43 14:20 WBC 8.7 RBC 4.55 Hgb 13.3 Hct 40.7 MCV 89.5 MCH 29.2 MCHC 32.7 RDW Std Deviation 44.2 H RDW Coeff of Jordin 13.4 Plt Count 345 MPV 8.8 Immature Gran % (Auto) 0.200 Neut % (Auto) 65.3 Lymph % (Auto) 25.2 [place] % (Auto) 8.2 Eos % (Auto) 0.6 Baso % (Auto) 0.5 Absolute Neuts (auto) 5.7 Absolute Lymphs (auto) 2.18 Nucleated RBC % 0 Sodium 129 L Potassium 3.6 Chloride 94 L Carbon Dioxide 29.0 Anion Gap 6 BUN 10 Creatinine 0.50 L Estim Creat Clear Calc 46.43 Est GFR (MDRD) Af Amer 155 Est GFR (MDRD) Non-Af 128 BUN/Creatinine Ratio 19.8 Glucose 145 H Calcium 8.5 Magnesium 2.3 Total Bilirubin 0.30 Direct Bilirubin 0.12 AST 21 ALT 25 Alkaline Phosphatase 83 Troponin I High Sens 103.9 H* Total Protein 7.6 Albumin 3.6 Globulin 4.0 Lipase 23 L Radiography Diagnostic Testing: Radiology Impression Chest X-Ray 01/16/21 14:50 IMPRESSION: 1. No acute cardiopulmonary pathology. 2. Mild COPD with right upper lobe emphysema. 3. 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 4. No interval change when compared to 10/20/2020. Electronically Signed: Dexter Zavaleta MD at 15:11 EDT , Service support , Discharge Plan Dx/Rx/DC Orders Clinical Impression: Acute non-ST elevation myocardial infarction (NSTEMI) Disposition Disposition: Acute Care Hospital [facility] [place] Discharge Date/Time: 01/16/21 16:25
[2021-01-16] MEDS: HYDROmorphone 0.5 MG/0.5 ML SYRINGE IV (15:35)
[2021-01-16] MEDS: Aspirin 81 MG TAB.CHEW 243 MG PO (15:37)
--- NOTE | 2021-01-16 15:40 | CM.ED ---
SOCIAL WORK Reason for Consult: Support- NSTEMI Patient from [facility]. 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 Emotional support provided to patient's son and son-in-law. This worker to remain available for needs. Eder Rogers, CHIMNEY [employer]PA[employer]
--- NOTE | 2021-01-16 15:54 | NURSING ---
DIRECTOR OF [employer] [facility]
--- NOTE | 2021-01-16 15:54 | NURSING ---
ICU [facility] NSTEMI
[2021-01-16] MEDS: DiphenhydrAMINE 50 MG/ML Syringe 25 MG IV (16:05)
[2021-01-16] MEDS: Metoclopramide 10 MG/2 ML Vial 5 MG IV (16:06)
--- NOTE | 2021-01-16 16:17 | NURSING ---
[facility] AFTER [facility]
--- NOTE | 2021-01-16 16:27 | HP.PCM.HOS_ITS ---
HPI - General General Date of Admission: 01/16/21 HPI Narrative XANDER RAMIREZ, is a 70 F who [facility] for epigastric abdominal pain. Patient in the ER restless with pain and anxiety and therefore complete history is not obtainable. As per ER physician, patient has pain for 6 days. Patient was also admitted on 01/10 for abdominal pain and CT abdomen revealed fecal matter otherwise no significant finding contributing to pain therefore discharged. Patient is not able to tell me whether she has associated shortness of breath, palpitation but she is restless and constantly moving on the bed. She said she moved a large ball of hard stool yesterday. She is also on Bactrim DS, indication unclear as he was not discharged on Bactrim. Last UA was showed urine bacteria 0, WBC 0 LE and nitrite negative. Patient has involuntary movement and with history of seizure and is on oxcarbazepine, benztropine Twelve-lead EKG in the ER shows normal sinus rhythm at 96 bpm, T wave inversion V3 to V6, ST elevation 2 to 3 mm V2 to V3. EKG is not of good quality with motion artifact. There is significant change from previous EKG of October 2020 when she had isoelectric ST segments and upright T waves. EKG seen by crystal machining coordinator and protected non-STEMI. Troponin high. [facility] Medical History Anxiety COPD (chronic obstructive pulmonary disease) Degenerative disc disease, lumbar Depression Diverticulosis DVT (deep venous thrombosis) Gastritis Hypertension Insomnia Obstructive sleep apnea On home oxygen therapy Pain, chronic Physical debility Restless leg syndrome Seizure disorder Sleep apnea Smoker Spinal stenosis Home Medications aspirin 81 mg PO 1200 01/07/19 [History Last Taken 11/22/20] duloxetine 20 mg PO DAILY 01/07/19 [History Last Taken 11/22/20] levothyroxine 50 mcg PO DAILY 01/07/19 [History Last Taken 11/21/20] potassium chloride 20 meq PO BID 01/07/19 [History Last Taken 11/22/20] mirtazapine 7.5 mg tablet 7.5 mg PO QHS tablet 02/21/19 [History Last Taken 11/21/20] nicotine 1 patch TOPICAL DAILY 08/08/19 [History Last Taken 11/22/20] ropinirole 2 mg PO QHS 08/08/19 [History Last Taken 11/21/20] acetaminophen 650 mg PO Q6H PRN PRN tablet 08/11/19 [Rx Last Taken Unknown] albuterol sulfate 90 mcg/actuation aerosol inhaler 1 inh INHALATION BID PRN PRN 05/13/20 [History Last Taken 11/21/20] calcium carbonate 500 mg calcium (1,250 mg) tablet 500 mg PO BID 05/13/20 [History Last Taken 11/22/20] fluticasone furoate 100 mcg-vilanterol 25 mcg/dose inhalation powder 2 puff INHALATION DAILY 05/13/20 [History Last Taken 11/22/20] mirabegron 25 mg tablet,extended release 24 hr 25 mg PO BID tab 05/13/20 [History Last Taken 11/22/20] omeprazole 20 mg capsule,delayed release 20 mg PO DAILY cap 05/13/20 [History Last Taken 11/22/20] sennosides 8.6 mg-docusate sodium 50 mg tablet 2 tab PO BID 05/13/20 [History Last Taken 11/22/20] brimonidine 0.15 % eye drops 1 drp OPHTHALMIC BID 07/09/20 [History Last Taken 11/22/20] benztropine 2 mg tablet 2 mg PO BID #60 tab 10/13/20 [Rx Last Taken 11/22/20] oxcarbazepine 600 mg tablet 600 mg PO BID #60 tab 10/13/20 [Rx Last Taken 11/22/20] phenobarbital 32.4 mg tablet 32.4 mg PO BID #60 tab 10/13/20 [Rx Last Taken 11/22/20] cholecalciferol (vitamin D3) 1,250 mcg PO WE 10/20/20 [History Last Taken 11/19/20] multivitamin 1 tab PO 1200 10/20/20 [History Last Taken 11/22/20] temazepam 30 mg PO QHS PRN 10/20/20 [History Last Taken 11/21/20] methadone 10 mg PO TID 5 Days #15 tab 10/25/20 [Rx Last Taken 11/22/20] ferrous sulfate [FeroSul] 325 mg PO 1200,1700 #60 tab 12/03/20 [Rx Last Taken Unknown] ondansetron 4 mg PO Q6H PRN 01/10/21 [History Last Taken Unknown] sulfamethoxazole-trimethoprim [Bactrim DS] 1 tab PO BID 01/16/21 [History Last Taken Unknown] Allergy/AdvReac Type Severity Reaction Status Date / Time codeine Allergy Mild HIVES Verified 01/16/21 13:14 Penicillins Allergy Anaphylaxis Verified 01/16/21 13:14 Family History Mother Diabetes Heart disease Hypertension CAD (coronary artery disease) CVA (cerebral vascular accident) Thyroid disorder Father Colon cancer Surgical History History of bilateral carpal tunnel release History of bilateral cataract extraction History of blepharoplasty History of cystoscopy History of esophagogastroduodenoscopy (EGD) (~03/07/19) History of right hip replacement History of right salpingo-oophorectomy S/P appendectomy S/P laparoscopic cholecystectomy Status post ORIF of fracture of ankle Social History Smoking Status: Former smoker Tobacco: How many years used: 50 alcohol intake: never substance use type: does not use ROS ROS Narrative Complete ROS unobtainable as patient is restless, anxious and constantly mov ing/with confusion Chest and abdominal pain. Constipation Movement disorder mainly cervical dystonia/dyskinesia Review of Systems ROS Unobtainable: due to mental status Vital Signs Vital Signs Vital Signs: 01/16/21 13:14 01/16/21 15:24 01/16/21 15:52 Temperature 98.3 F 96.6 F L Temperature Source Oral Temporal Pulse Rate 102 H 96 96 Respiratory Rate 17 15 19 H Blood Pressure 140/103 H 134/95 H Blood Pressure Mean 115 108 Pulse Ox 97 95 95 Oxygen Delivery Method Room Air Room Air Room Air Weight Weight: 186 lb 8.177 oz Body Mass Index (BMI) 31.0 Physical Exam Narrative Physical exam General: Awake, disoriented. Restless and anxious HEENT: Atraumatic, PERRLA, EOMI, Normocephalic Oral: No Gingival or Mucosal Lesions/ Ulcerations Neck: Supple, No JVD, Negative Carotid Bruits Lungs: Air entry diminished in bilateral lung bases. No crepitation/rhonchi Cardiovascular: Sinus rhythm. Normal S1, Normal S2, No murmurs Abdomen: Mild epigastric tenderness. Bowel Sounds Present, Soft, Non-Distended : No renal angle tenderness. No suprapubic tenderness. Extremities: No edema, Capillary Refill Less than 3 Seconds Skin: No rashes, No breakdown Musculoskeletal: No Tenderness to Palpation of Joints or Extremities Neurological: Involuntary movement of head and neck. Cranial nerves II-XII grossly intact, Deep Tendon Reflexes 2+/4 Psych/Mental Status: Anxious. Results Lab / Micro Data Result Diagrams: 01/16/21 14:20 01/16/21 13:43 Labs: Laboratory Results - last 24 hr 01/16/21 13:43: Sodium 129 L, Potassium 3.6, Chloride 94 L, Carbon Dioxide 29.0, Anion Gap 6, BUN 10, Creatinine 0.50 L, Estim Creat Clear Calc 46.43, Est GFR (MDRD) Af Amer 155, Est GFR (MDRD) Non-Af 128, BUN/Creatinine Ratio 19.8, Glucose 145 H, Calcium 8.5, Total Bilirubin 0.30, Direct Bilirubin 0.12, AST 21, ALT 25, Alkaline Phosphatase 83, Troponin I High Sens 103.9 H*, Total Protein 7.6, Albumin 3.6, Globulin 4.0, Lipase 23 L 01/16/21 14:20: WBC 8.7, RBC 4.55, Hgb 13.3, Hct 40.7, MCV 89.5, MCH 29.2, MCHC 32.7, RDW Std Deviation 44.2 H, RDW Coeff of Jordin 13.4, Plt Count 345, MPV 8.8, Immature Gran % (Auto) 0.200, Neut % (Auto) 65.3, Lymph % (Auto) 25.2, [place] % (Auto) 8.2, Eos % (Auto) 0.6, Baso % (Auto) 0.5, Absolute Neuts (auto) 5.7, Absolute Lymphs (auto) 2.18, Nucleated RBC % 0 Radiology Impression Chest X-Ray 01/16/21 14:50 IMPRESSION: 1. No acute cardiopulmonary pathology. 2. Mild COPD with right upper lobe emphysema. 3. 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 4. No interval change when compared to 10/20/2020. Electronically Signed: Dexter Zavaleta MD at 15:11 EDT , Service support , Assessment & Plan Assessment/Plan (1) Acute non-ST elevation myocardial infarction (NSTEMI): PLAN: This 70-year-old female being admitted for abdominal and chest pain found to have non-STEMI 1. Non-STEMI: MAURO risk score is high 5 points. Patient is being taken to [facility] directly. After that she will admitted in ICU. Patient is on aspirin. Heart rate and blood pressure are in normal range. After heart cath, patient will be on Brilinta, metoprolol and high intensity statin. LIDIA/ARB in meter permitting blood pressure. 2. Abdominal pain and acute on chronic constipation CT obtained done last week demonstrated no acute infiltrative process or evidence of bowel obstruction. Stool regimen including Dulcolax suppository ordered. 3 chronic hyponatremia: Patient was discharged on sodium 134 and she is back to 129. 4 seizure disorder Continue oxcarbazepine. 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 6 COPD: Patient not on exacerbation VT prophylaxis: Lovenox 40 mg subcu daily. DVT prophylaxis Other multiple problem includes physical debility, restless leg syndrome, sleep apnea, chronic spinal stenosis, anxiety and depression: Living will/advanced directive/end of life care: Patient does not have living will or advanced directive. Her son present in the room is power of environmental attorney of health. After discussion of benefits/risks procedures involved with full code, DNR CC arrest and DNR CC, the patient and her son agreed for DNR-CC Arrest with no intubation Patient and her son does not want artificial life support including intubation, tube feed, ventilator and/chest compression, central venous catheter, vasopressor and DC shock if needed Total time spent in [id number] encounter in discussion of advanced directive 16 minutes. Charges/Coding Visit Charges Inpatient E&M: 88935 Init Hosp L3 Procedures Hospitalists Procedures: 51756 Advncd Care Plan 30 Min
[2021-01-16 16:39] LABS: Magnesium 2.3 mg/dL (1.6-2.6)
--- NOTE | 2021-01-16 17:09 | CL.D_ITS ---
Patient Name: XANDER RAMIREZ Study Date: 01/16/2021 Performing: Kathy Jones MD Ht: 64.96 inches 165 cm : 1950 Wt: 187.39 lbs 85 kg Age: 70 Gender: female BSA: 1.92 PROCEDURE(S) PERFORMED EG94-ENA/COR/LV CLINICAL PROFILE AND INDICATIONS Indications: ACS <= 24 hrs Heart Failure: None Stress/Imaging Stress/Image Study Performed: No CAD Presentations: Non-STEMI. Symptom onset Date/Time: 01/16/21 Time Not Available CONCLUSIONS Mild non obstructive CAD. EF 35-40%, wall motion abnormalities consistent with takotsubo cardiomyopat hy. No significant or MR RECOMMENDATIONS DESCRIPTION OF PROCEDURE The patient arrived to the procedure lab. The risks and benefits of the procedure as well as a full d escription of our services here and current unavailability of surgical backup were fully explained to the patient and/or their significant other prior to the catheterization. The Timeout was completed, verifying the correct patient and procedure. The patient's procedural site was prepped and draped in the usual fashion. Local anesthetic was given subcutaneously to right groin region with Lidocaine 2%. Using a modified Seldinger technique, arterial access was obtained via the right femoral artery, a 5 Fr sheath was inserted. Left Coronary Artery selective angiography was performed in multiple views u sing a 5 Fr. JL4 catheter. Left Ventriculography was performed in FORREST projection using a 5 Fr. JR 4. Right Coronary Artery selective angiography was then performed in multiple views using a 5 Fr. JR 4 c atheter.Contrast was injected through the sheath and the Right Iliac and Femoral artery were assessed for possible closure device.The arterial sheath was pulled and a Perclose closure devic e was deployed for hemostasis CORONARY ANGIOGRAPHY DOMINANCE: Right Dominant LEFT HEART ASSESSMENT Left Ventricular Ejection Fraction: by LV Gram 35-40 % The base of the LV is pramod well. Rest of the LV is hypokinetic consistent with takotsubo cardi omyopathy LEFT MAIN: Mild luminal irregularities LEFT ANTERIOR DESCENDING ARTERY: Mild luminal irregularities. Myocardial bridging in mLAD CIRCUMFLEX ARTERY: Mild luminal irregularities RIGHT CORONARY ARTERY: Mild luminal irregularities VALVE FINDINGS: No Aortic Valve Stenosis No Mitral Insufficiency COMPLICATIONS No Complications PROCEDURE MEDICATIONS Versed 2 mg IV Oxygen: 2 L/min via simple mask IV Bolus: .9 NaCl 250 ml total 01/16/2021 16:44:31 SUMMARY OF HEMODYNAMIC DATA Time AIR REST ECG 16:33:04 ECG 16:41:08 AO 78/60 (68) SA 16:43:11 LV 99/-3, 11 16:46:14 LV 98/-5, 8 16:46:20 LV 102/-2, 11 16:46:51 LV 98/0, 11 16:46:57 LVp 96/4, 20 16:47:16 AOp 79/50 (64) 16:47:21 AO 93/43 (67) 16:49:38 Signed By Kathy Jones MD On 01/16/2021 17:08:21 Kathy Jones MD
--- NOTE | 2021-01-16 17:12 | CON.PCM.CA_ITS ---
Assessment & Plan Assessment/Plan (1) Chest pain: QUALIFIERS: Chest pain type: unspecified Qualified Code(s): R07.9 - Chest pain, unspecified PLAN: Initially there was concern for non-STEMI/late presentation of NH. Coronary angiography and LV gram demonstrate that her EKG changes are secondary to Takotsubo cardiomyopathy. I would recommend starting the patient on metoprolol succinate, LIDIA inhibitor if blood pressure tolerates. Patient is going to be admitted to the PCU for further management. HPI Consult Data Date of Consult: 01/16/21 HPI Narrative HPI Narrative: 70-year-old male presenting with epigastric pain that has been going on for a few days now radiating to her chest. Patient was writhing in pain and has EKG changes that are concerning for acute coronary syndrome/late presentation of acute NH. Patient was brought emergently to the cardiac [facility] and underwent coronary angiography which revealed no significant CAD and wall motion abnormalities on LV gram consistent with Takotsubo cardiomyopathy. Review of systems: All systems reviewed. All else is negative except as in HPI PFSH Medical History Anxiety COPD (chronic obstructive pulmonary disease) Degenerative disc disease, lumbar Depression Diverticulosis DVT (deep venous thrombosis) Gastritis Hypertension Insomnia Obstructive sleep apnea On home oxygen therapy Pain, chronic Physical debility Restless leg syndrome Seizure disorder Sleep apnea Smoker Spinal stenosis Home Medications aspirin 81 mg PO 1200 01/07/19 [History Last Taken 11/22/20] duloxetine 20 mg PO DAILY 01/07/19 [History Last Taken 11/22/20] levothyroxine 50 mcg PO DAILY 01/07/19 [History Last Taken 11/21/20] potassium chloride 20 meq PO BID 01/07/19 [History Last Taken 11/22/20] mirtazapine 7.5 mg tablet 7.5 mg PO QHS tablet 02/21/19 [History Last Taken 11/21/20] nicotine 1 patch TOPICAL DAILY 08/08/19 [History Last Taken 11/22/20] ropinirole 2 mg PO QHS 08/08/19 [History Last Taken 11/21/20] acetaminophen 650 mg PO Q6H PRN PRN tablet 08/11/19 [Rx Last Taken Unknown] albuterol sulfate 90 mcg/actuation aerosol inhaler 1 inh INHALATION BID PRN PRN 05/13/20 [History Last Taken 11/21/20] calcium carbonate 500 mg calcium (1,250 mg) tablet 500 mg PO BID 05/13/20 [History Last Taken 11/22/20] fluticasone furoate 100 mcg-vilanterol 25 mcg/dose inhalation powder 2 puff INHALATION DAILY 05/13/20 [History Last Taken 11/22/20] mirabegron 25 mg tablet,extended release 24 hr 25 mg PO BID tab 05/13/20 [History Last Taken 11/22/20] omeprazole 20 mg capsule,delayed release 20 mg PO DAILY cap 05/13/20 [History Last Taken 11/22/20] sennosides 8.6 mg-docusate sodium 50 mg tablet 2 tab PO BID 05/13/20 [History Last Taken 11/22/20] brimonidine 0.15 % eye drops 1 drp OPHTHALMIC BID 07/09/20 [History Last Taken 11/22/20] benztropine 2 mg tablet 2 mg PO BID #60 tab 10/13/20 [Rx Last Taken 11/22/20] oxcarbazepine 600 mg tablet 600 mg PO BID #60 tab 10/13/20 [Rx Last Taken 11/22/20] phenobarbital 32.4 mg tablet 32.4 mg PO BID #60 tab 10/13/20 [Rx Last Taken 11/07] cholecalciferol (vitamin D3) 1,250 mcg PO WE 10/20/20 [History Last Taken 11/19/20] multivitamin 1 tab PO 1200 10/20/20 [History Last Taken 11/22/20] temazepam 30 mg PO QHS PRN 10/20/20 [History Last Taken 11/21/20] methadone 10 mg PO TID 5 Days #15 tab 10/25/20 [Rx Last Taken 11/22/20] ferrous sulfate [FeroSul] 325 mg PO 1200,1700 #60 tab 12/03/20 [Rx Last Taken Unknown] ondansetron 4 mg PO Q6H PRN 01/10/21 [History Last Taken Unknown] sulfamethoxazole-trimethoprim [Bactrim DS] 1 tab PO BID 01/16/21 [History Last Taken Unknown] Allergy/AdvReac Type Severity Reaction Status Date / Time codeine Allergy Mild HIVES Verified 01/16/21 13:14 Penicillins Allergy Anaphylaxis Verified 01/16/21 13:14 Family History Mother Diabetes Heart disease Hypertension CAD (coronary artery disease) CVA (cerebral vascular accident) Thyroid disorder Father Colon cancer Surgical History History of bilateral carpal tunnel release History of bilateral cataract extraction History of blepharoplasty History of cystoscopy History of esophagogastroduodenoscopy (EGD) (~03/07/19) History of right hip replacement History of right salpingo-oophorectomy S/P appendectomy S/P laparoscopic cholecystectomy Status post ORIF of fracture of ankle Social History Smoking Status: Former smoker Tobacco: How many years used: 50 alcohol intake: never substance use type: does not use Physical Exam Const alert and oriented x3 Orientation / Consciousness: awake HEENT normocephalic Eyes no scleral icterus Chest inspection of chest normal Resp normal respiratory effort Cardio regular rate Skin no rashes or lesions noted Neuro oriented x3 Charges/Coding Visit Charges Inpatient E&M: 53682 Init Hosp L2 Objective Data Vital Signs: Vital Signs Temp Pulse Resp BP Pulse Ox 96.6 F L 96 19 H 134/95 H 95 01/16/21 15:52 01/16/21 15:52 01/16/21 15:52 01/16/21 15:52 01/16/21 15:52 Oxygen Delivery Method Room Air Weight: 186 lb 8.177 oz Body Mass Index (BMI) 31.0 Lab / Micro Data Result Diagrams: 01/16/21 14:20 01/16/21 13:43 Labs: Laboratory Results - last 24 hr 01/16/21 13:43: Sodium 129 L, Potassium 3.6, Chloride 94 L, Carbon Dioxide 29.0, Anion Gap 6, BUN 10, Creatinine 0.50 L, Estim Creat Clear Calc 46.43, Est GFR (MDRD) Af Amer 155, Est GFR (MDRD) Non-Af 128, BUN/Creatinine Ratio 19.8, Glucose 145 H, Calcium 8.5, Total Bilirubin 0.30, Direct Bilirubin 0.12, AST 21, ALT 25, Alkaline Phosphatase 83, Troponin I High Sens 103.9 H*, Total Protein 7.6, Albumin 3.6, Globulin 4.0, Lipase 23 L 01/16/21 13:43: Magnesium 2.3 01/16/21 14:20: WBC 8.7, RBC 4.55, Hgb 13.3, Hct 40.7, MCV 89.5, MCH 29.2, MCHC 32.7, RDW Std Deviation 44.2 H, RDW Coeff of Jordin 13.4, Plt Count 345, MPV 8.8, Immature Gran % (Auto) 0.200, Neut % (Auto) 65.3, Lymph % (Auto) 25.2, [place] % (Auto) 8.2, Eos % (Auto) 0.6, Baso % (Auto) 0.5, Absolute Neuts (auto) 5.7, Absolute Lymphs (auto) 2.18, Nucleated RBC % 0 Cardiology Labs/Tests 01/16/21 13:43: Sodium 129 L, Potassium 3.6, Chloride 94 L, Carbon Dioxide 29.0, Anion Gap 6, BUN 10, Creatinine 0.50 L, Est GFR (MDRD) Af Amer 155, Est GFR (MDRD) Non-Af 128, BUN/Creatinine Ratio 19.8, Glucose 145 H, Calcium 8.5, Total Bilirubin 0.30, Direct Bilirubin 0.12 01/16/21 13:43: Magnesium 2.3 01/16/21 14:20: WBC 8.7, RBC 4.55, Hgb 13.3, Hct 40.7, MCV 89.5, MCH 29.2, MCHC 32.7, Plt Count 345, MPV 8.8, Immature Gran % (Auto) 0.200, Neut % (Auto) 65.3, Lymph % (Auto) 25.2, [place] % (Auto) 8.2, Eos % (Auto) 0.6, Baso % (Auto) 0.5, Absolute Neuts (auto) 5.7, Nucleated RBC % 0 Rhythm: EKG: ECHO: Stress Test: Cardiac Cath: PCI: CT Surgery: Holter monitor: EPS: PPM: CXR: Chest CT Scan: Radiography Diagnostic Testing: Radiology Impression Chest X-Ray 01/16/21 14:50 IMPRESSION: 1. No acute cardiopulmonary pathology. 2. Mild COPD with right upper lobe emphysema. 3. 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 4. No interval change when compared to 10/20/2020. Electronically Signed: Dexter Zavaleta MD at 15:11 EDT , Service support ,
--- NOTE | 2021-01-16 17:30 | EKG12_ITS ---
Test Reason : Blood Pressure : / mmHG Vent. Rate : 090 BPM Atrial Rate : 090 BPM P-R Int : 142 ms QRS Dur : 088 ms QT Int : 456 ms P-R-T Axes : 079 045 031 degrees QTc Int : 557 ms Normal sinus rhythm Low voltage QRS T wave abnormality, consider anterior-lateral ischemia Prolonged QT Abnormal ECG Confirmed by JAMES LEACH, LUZ ([id number]), publications editor WESLY CASTAÑEDA ([id number]) on 01/23/2021 9:11:10 AM Referred By: BLUE Confirmed By:LUZ RAMIREZ MD
--- NOTE | 2021-01-16 17:57 | ECHOD_ITS ---
Reason For Study: NSTEMI Procedure This was a 2D Doppler, Color Flow transthoracic echocardiogram. Technially difficult study, patient would not stop moving and complained of being in extreme pain. The study was technically difficult. Exam performed portable in ICU/CCU. Left Ventricle Normal LV size. Moderate segmental systolic dysfunction (see wall motion). The estimated ejection fraction is 35 %. Diastolic function is indeterminate. Mid-Anterior : Akinetic. Mid-Lateral : Akinetic. Mid-Posterior: Akinetic. Mid-Inferior: Akinetic. Mid-inferoseptal : Akinetic. Mid- anteroseptal : Akinetic. Richardson : Akinetic. Right Ventricle Normal RV size. Normal systolic function. Atria Normal left atrium. Normal right atrium. No doppler evidence for ASD. Mitral Valve There is no mitral annular calcification. Normal mitral valve. Mild (1+) eccentric mitral valve insufficiency. Tricuspid Valve Normal tricuspid valve. Mild eccentric tricuspid valve insufficiency. Unable to estimate RV systolic pressure/pulmonary artery pressure due to technically difficult study. Aortic Valve The aortic valve is not well visualized. Pulmonic Valve The pulmonic valve is not well visualized. Great Vessels The aortic root is not well visualized. Pericardium/Pleural Trivial pericardial effusion. There are no echocardiographic indications of cardiac tamponade. MMode/2D Measurements & Calculations LVIDd: 4.9 cm IVSd: 1.4 cm LA dimension: 3.8 cm LVIDs: 2.8 cm LVPWd: 0.86 cm RVDd: 3.2 cm FS: 43.0 % LAV(MOD-bp): 35.7 ml LVAd ap4: 24.1 cm2 SV(MOD-sp4): 32.2 ml LAV(MOD-bp) Indexed: 18.4 ml/m2 LVLd ap4: 6.6 cm LAV(MOD-sp2): 29.1 ml EDV(MOD-sp4): 72.1 ml LAV(MOD-sp4): 40.2 ml EDV(sp4-el): 74.1 ml LVAs ap4: 17.2 cm2 LVLs ap4: 6.0 cm ESV(MOD-sp4): 39.8 ml ESV(sp4-el): 42.1 ml EF(MOD-sp4): 44.7 % EF(sp4-el): 43.2 % SV(sp4-el): 32.0 ml LA A4 area: 15.6 cm2 RA A4 area: 10.7 cm2 Time Measurements MV dec time: 0.15 sec Doppler Measurements & Calculations MV E max rusty: 83.8 cm/sec Lat Peak E' Rusty: 8.5 cm/sec Med Peak E' Rusty: 6.6 cm/sec MV A max rusty: 75.1 cm/sec E/E' lat: 9.9 E/E' med: 12.7 MV E/A: 1.1 Ao V2 max: 131.4 cm/sec LV V1 max: 102.2 cm/sec PA V2 max: 75.7 cm/sec Ao max P.9 mmHg LV V1 max P.2 mmHg ECHO/Echo Complete Interpretation Summary The study was technically difficult. Moderate segmental systolic dysfunction (see wall motion). The estimated ejection fraction is 35 %. Mild (1+) eccentric mitral valve insufficiency. Mild eccentric tricuspid valve insufficiency. Trivial pericardial effusion. There are no echocardiographic indications of cardiac tamponade. Unable to estimate RV systolic pressure/pulmonary artery pressure due to techni trav difficult study. Diastolic function is indeterminate. Ordering Physician: Valentín Harry Referring Physician: Patel Veliz Chi Performed By: Mao Cheng RCS
[2021-01-16 18:43] LABS: Hematocrit 36.1 % (37-47); Hemoglobin 11.8 g/dL (12.0-15.0)
[2021-01-16] MEDS: oxyCODONE 5 MG Tablet PO (19:48)
[2021-01-16] MEDS: Bisacodyl 10 MG Suppository RC (19:49)
[2021-01-16] MEDS: Ferrous Sulfate 325 MG Tablet PO (19:50)
[2021-01-16] MEDS: Lisinopril 2.5 MG Tablet PO (19:54)
[2021-01-16] MEDS: Albuterol 2.5 MG/3 ML VIAL.NEB. INHALATION (20:04)
[2021-01-16] MEDS: Budesonide Respules 0.5 MG/2 ML AMPUL.NEB. INHALATION (20:04)
[2021-01-16] MEDS: Lactated Ringers 1,000 ML 999 ML IV (20:11)
--- NOTE | 2021-01-16 20:46 | PCM.HOSP.N ---
Hospitalist Note Patient with transient hypotension, asymptomatic, improved with 500 cc normal saline bolus, now 98/81, continue closely monitor, remains in the ICU, will transition to maintenance IV fluids and continue to closely assess blood pressure. BP parameter hold placed.
[2021-01-16] MEDS: Mirtazapine 15 MG Tablet 7.5 MG PO (20:49)
[2021-01-16] MEDS: BRIMONIDINE 0.15% 5 ML Bottle 1 DRP OPHTHALMIC (21:01)
[2021-01-16] MEDS: OXcarbazepine 600 MG Tablet PO (21:02)
[2021-01-16] MEDS: Pramipexole Di-HCl 1 MG Tablet PO (21:02)
[2021-01-16] MEDS: Potassium Chloride Oral Tablet 20 MEQ PO (21:02)
[2021-01-16] MEDS: Mirabegron 25 MG TAB.ER.24H PO (21:03)
[2021-01-16] MEDS: Atorvastatin Calcium 40 MG Tablet PO (21:03)
[2021-01-16] MEDS: Senna/Docusate Sodium 1 Tablet 2 TABLET PO (21:03)
[2021-01-16] MEDS: Benztropine 2 MG Tablet PO (21:03)
[2021-01-16] MEDS: 0.9% Normal Saline 1,000 ML 100 ML IV (21:05)
[2021-01-16] MEDS: 0.9% Normal Saline 1,000 ML 999 ML IV (22:18)
[2021-01-17] VITALS (62 sets, daily range): BP systolic 60–173; BP diastolic 33–141; PULSE 14–118; RESP 12–103; TEMP 36.8–37.6; O2SAT 92–100
[2021-01-17 05:14] LABS: Mucous, Urine 0 SEEN /hpf (<or=2+)
[2021-01-17 05:15] LABS: Color, Urine Yellow (Yellow); Glucose, Dipstick Normal (Normal); Ketone-Dipstick 15 mg/dl (Negative); Leukocyte Esterase-Dipstick 500 /ul (Negative); Nitrite-Dipstick Negative (Negative); Occult Blood-Urine 150 /ul (Negative); Protein-Dipstick 30 mg/dl (Negative); Specific Gravity, Urine 1.005 (1.002-1.030); Urine Bilirubin Dipstick Negative (Negative); Urine Clarity Cloudy (Clear); Urine Urobilinogen Normal (Normal)
[2021-01-17] MEDS: Levothyroxine 50 MCG Tablet PO (05:15)
[2021-01-17] MEDS: 0.9% Normal Saline 1,000 ML 100 ML IV (05:17)
--- NOTE | 2021-01-17 05:35 | CON.PCM.CC_ITS ---
Assessment & Plan Assessment/Plan (1) Acute non-ST elevation myocardial infarction (NSTEMI): PLAN: RECOMMENDATIONS: 1. Continue empiric antimicrobials, pending infectious work-up. 2. Discontinue supplemental IV fluids. 3. PICC line to be placed. 4. Wean Levophed to maintain a mean arterial pressure at or above 65 mmHg. 5. Check lactate, TSH and procalcitonin. 6. Encourage incentive spirometer use and mobilize patient as tolerated. IMPRESSIONS: 1. Undifferentiated shock The exact etiology for the patient's hypotension is unclear. The patient's hypotension was fluid refractory and she was therefore started on vasopressor support. There does not appear to be any focal source of blood loss. There is no concern for cardiogenic shock. The patient is afebrile with only a mildly elevated white blood cell count. However, the patient does report the presence of dysuria and had a UA which was positive for leukocyte esterase, white blood cells and 2+ urine bacteria. Therefore, the patient was placed on antimicrobial therapy to cover for potential urinary tract source of infection. Cultures are currently pending. In the interim, the patient's continuous IV fluids were discontinued. She will be continued on Levophed to maintain a mean arterial pressure at or above 65 mmHg. PICC line to be placed. 2. Non-ST segment elevation ID/Takotsubo cardiomyopathy The patient did undergo cardiac catheterization, which revealed mild nonobstructive coronary disease and an ejection fraction of 35 to 40%. Plan to continue medical management. Continuous IV fluids will be discontinued. 3. Chronic constipation/unspecified seizure disorder/essential tremor/chronic back pain/depression Complicates care, management, recovery and prognosis. Continue home medications as indicated. TIME: 40 minutes of critical care, independent of procedures, spent addressing the patient's undifferentiated shock, non-ST segment elevation ID, review of all data and collaboration with care team. ([id number]) HPI Consult Data Date of Consult: 01/18/21 HPI Narrative HPI Narrative: The patient is a 70-year-old female, with a history as outlined below, who presented to the emergency department on January 16 with abdominal pain. The patient was just discharged from the hospital on January 11 after having been admitted with suspected gastritis, following negative CT abdomen/pelvis. On presentation to the emergency department, the patient was noted to be afebrile and hemodynamically stable. She was maintaining appropriate oxygen saturations on room air. Laboratory evaluation revealed a normal white blood cell count. Chemistry profile was notable for a sodium 129, chloride of 94, and creatinine of 0.50. Troponin was elevated to 104. Liver function was within normal limits. Lipase was within normal limits. Chest x-ray demonstrated no acute cardiopulmonary process. EKG obtained in the emergency department revealed T wave inversions in the anterior lateral leads. The case was reviewed with cardiology and the decision was made to take the patient to the cardiac catheterization lab. Catheterization revealed mild nonobstructive coronary disease with an ejection fraction of 35 to 40% and wall motion abnormalities consistent with Takotsubo cardiomyopathy. Overnight, the patient apparently developed hypotension, which was treated initially with supplemental fluids. Despite this, the patient r emained hypotensive and was initiated on vasopressor support. In total, the patient received between 3 and 4 L of fluid. Hemoglobin remained stable this morning at 11.7 g/dL. Lactate was normal at 1.1. Urine analysis was notable for leukocyte esterase, greater than 100 white blood cells and 2+ urine bacteria. The patient currently reports the presence of chronic back pain, but denies any abdominal discomfort. She does report the presence of dysuria. FORMERLY [facility], [facility] Medical History (Updated 01/17/21 @ 09:[address] Saulo Moss MD) Anxiety COPD (chronic obstructive pulmonary disease) Degenerative disc disease, lumbar Depression Diverticulosis DVT (deep venous thrombosis) Gastritis Hypertension Hypotension Insomnia Obstructive sleep apnea On home oxygen therapy Pain, chronic Physical debility Restless leg syndrome Seizure disorder Sleep apnea Smoker Spinal stenosis Takotsubo cardiomyopathy Home Medications aspirin 81 mg PO 1200 01/07/19 [History Last Taken 01/15/21] duloxetine 20 mg PO DAILY 01/07/19 [History Last Taken 01/15/21] levothyroxine 50 mcg PO DAILY 01/07/19 [History Last Taken 11/21/20] potassium chloride 20 meq PO BID 01/07/19 [History Last Taken 01/15/21] mirtazapine 7.5 mg tablet 7.5 mg PO QHS tablet 02/21/19 [History Last Taken 01/15/21] nicotine 1 patch TOPICAL DAILY 08/08/19 [History Last Taken 01/14/21] ropinirole 2 mg PO QHS 08/08/19 [History Last Taken 01/15/21] acetaminophen 650 mg PO Q6H PRN PRN tablet 08/11/19 [Rx Last Taken Unknown] albuterol sulfate 90 mcg/actuation aerosol inhaler 1 inh INHALATION BID PRN PRN 05/13/20 [History Last Taken 11/21/20] calcium carbonate 500 mg calcium (1,250 mg) tablet 500 mg PO BID 05/13/20 [History Last Taken 01/15/21] fluticasone furoate 100 mcg-vilanterol 25 mcg/dose inhalation powder 2 puff INHALATION DAILY 05/13/20 [History Last Taken 11/22/20] mirabegron 25 mg tablet,extended release 24 hr 25 mg PO BID tab 05/13/20 [History Last Taken 01/15/21] omeprazole 20 mg capsule,delayed release 20 mg PO DAILY cap 05/13/20 [History Last Taken 01/15/21] sennosides 8.6 mg-docusate sodium 50 mg tablet 2 tab PO BID 05/13/20 [History Last Taken 01/15/21] brimonidine 0.15 % eye drops 1 drp OPHTHALMIC BID 07/09/20 [History Last Taken 01/15/21] benztropine 2 mg tablet 2 mg PO BID #60 tab 10/13/20 [Rx Last Taken 01/15/21] oxcarbazepine 600 mg tablet 600 mg PO BID #60 tab 10/13/20 [Rx Last Taken 01/15/21] phenobarbital 32.4 mg tablet 32.4 mg PO BID #60 tab 10/13/20 [Rx Last Taken 01/15/21] cholecalciferol (vitamin D3) 1,250 mcg PO WE 10/20/20 [History Last Taken 01/14/21] multivitamin 1 tab PO 1200 10/20/20 [History Last Taken 01/15/21] temazepam 30 mg PO QHS PRN 10/20/20 [History Last Taken 01/15/21] methadone 10 mg PO TID 5 Days #15 tab 10/25/20 [Rx Last Taken 01/15/21] ferrous sulfate [FeroSul] 325 mg PO 1200,1700 #60 tab 12/03/20 [Rx Last Taken 01/15/21] ondansetron 4 mg PO Q6H PRN 01/10/21 [History Last Taken Unknown] bisacodyl 10 mg DE DAILY PRN 01/16/21 [History Last Taken 01/10/21] loperamide [Imodium A-D] 2 mg PO Q6H PRN 01/16/21 [History Last Taken Unknown] magnesium hydroxide [Milk of Magnesia] 400 mg PO DAILY PRN 01/16/21 [History Last Taken 01/14/21] mineral oil 118 ml DE DAILY PRN 01/16/21 [History Last Taken Unknown] sulfamethoxazole-trimethoprim [Bactrim DS] 1 tab PO BID 01/16/21 [History Last Taken 01/16/21] Allergy/AdvReac Type Severity Reaction Status Date / Time codeine Allergy Mild HIVES Verified 01/16/21 13:14 Penicillins Allergy Anaphylaxis Verified 01/16/21 13:14 Family History Mother Diabetes Heart disease Hypertension CAD (coronary artery disease) CVA (cerebral vascular accident) Thyroid disorder Father Colon cancer Surgical History History of bilateral carpal tunnel release History of bilateral cataract extraction History of blepharoplasty History of cystoscopy History of esophagogastroduodenoscopy (EGD) (~03/07/19) History of right hip replacement History of right salpingo-oophorectomy S/P appendectomy S/P laparoscopic cholecystectomy Status post ORIF of fracture of ankle Social History Smoking Status: Former smoker Tobacco: How many years used: 50 alcohol intake: never substance use type: does not use ROS Constitutional Constitutional: Denies chills or fever(s) Eyes Eyes: Denies blurry vision or change in vision ENT HEENT: Denies dizziness, headache(s), loss taste/smell or nasal congestion Cardiovascular Cardiovascular: Denies chest pain or edema Respiratory/Chest Respiratory/Chest: Denies chest tightness or dyspnea Gastrointestinal Gastrointestinal: Denies abdominal pain Genitourinary Genitourinary: Reports dysuria Musculoskeletal Musculoskeletal: Reports back pain Integumentary Integumentary: Denies lesions, rash or skin ulcer Neurologic Neurologic: Denies abnormal gait or abnormal speech Psychiatric Psychiatric: Reports anxiety and depression Endocrine Endocrinology: Denies fatigue Hematologic/Lymphatic Hematologic/Lymphatic: Denies easy bleeding or easy bruising Physical Exam Const alert and no apparent distress General Appearance: cooperative HEENT normocephalic, head/scalp atraumatic and moist oral mucous membranes Eyes PERRL, EOMs intact bilaterally and conjunctivae normal Neck supple General: trachea midline Resp normal respiratory effort and no use of accessory muscles Auscultation: Negative for rales, rhonchi or wheezes Cardio regular rate and regular rhythm GI normal to inspection, nondistended, normoactive bowel sounds Extremity no clubbing, cyanosis or edema Skin no rashes or lesions noted Neuro no focal motor deficits Psych cooperative and affect normal Lab / Micro Data Result Diagrams: 01/18/21 05:30 01/18/21 05:30 Labs: Laboratory Results - last 24 hr 01/16/21 13:43: Sodium 129 L, Potassium 3.6, Chloride 94 L, Carbon Dioxide 29.0, Anion Gap 6, BUN 10, Creatinine 0.50 L, Estim Creat Clear Calc 46.43, Est GFR (MDRD) Af Amer 155, Est GFR (MDRD) Non-Af 128, BUN/Creatinine Ratio 19.8, Glucose 145 H, Calcium 8.5, Total Bilirubin 0.30, Direct Bilirubin 0.12, AST 21, ALT 25, Alkaline Phosphatase 83, Troponin I High Sens 103.9 H*, Total Protein 7 .6, Albumin 3.6, Globulin 4.0, Lipase 23 L 01/16/21 13:43: Magnesium 2.3 01/16/21 14:20: WBC 8.7, RBC 4.55, Hgb 13.3, Hct 40.7, MCV 89.5, MCH 29.2, MCHC 32.7, RDW Std Deviation 44.2 H, RDW Coeff of Jordin 13.4, Plt Count 345, MPV 8.8, Immature Gran % (Auto) 0.200, Neut % (Auto) 65.3, Lymph % (Auto) 25.2, [place] % (Auto) 8.2, Eos % (Auto) 0.6, Baso % (Auto) 0.5, Absolute Neuts (auto) 5.7, Absolute Lymphs (auto) 2.18, Nucleated RBC % 0 01/16/21 18:32: Troponin I High Sens 98.0 H* 01/16/21 18:32: Hgb 11.8 L, Hct 36.1 L 01/17/21 04:45: Urine Color Yellow, Urine Clarity Cloudy, Urine pH 7.0, Ur Specific [place] 1.005, Urine Protein 30 H, Urine Glucose (UA) Normal, Urine Ketones 15 H, Urine Occult Blood 150 H, Urine Nitrite Negative, Urine Bilirubin Negative, Urine Urobilinogen Normal, Ur Leukocyte Esterase 500 H Radiology Impression Chest X-Ray 01/16/21 14:50 IMPRESSION: 1. No acute cardiopulmonary pathology. 2. Mild COPD with right upper lobe emphysema. 3. 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 4. No interval change when compared to 10/20/2020. Electronically Signed: Dexter Zavaleta MD at 15:11 EDT , Service support , Charges/Coding Procedures Hospitalists Procedures: [id number] Critial Care 1st Hr
[2021-01-17 05:37] LABS: Bacteria 2+ /hpf (None Seen); Red Blood Cells-Urine 10-25 SEEN /hpf (0-5); Squamous Epithelial Cells - UA 0-5 SEEN /hpf (5-10); White Blood Cells >100 SEEN /hpf (0-5)
[2021-01-17 06:46] LABS: Absolute Lymphocyte Count 2.92 X10^3/uL (0.83-4.51); Absolute Neutrophil Count 6.9 X10^3/uL (2.0-7.7); Basophil# 0.07 X10^3/uL; Basophil% 0.6 % (0-1); Eosinophil# 0.17 X10^3/uL; Eosinophils% 1.5 % (0-5); Hematocrit 36.1 % (37-47); Hemoglobin 11.7 g/dL (12.0-15.0); Lymphocyte # 2.92 X10^3/ul (0.83-4.51); Lymphocyte % 25.5 % (19-41); Mean Corp Hgb Conc 32.4 g/dL (32-36); Mean Corpuscular Hgb 29.5 pg (27.0-32.0); Mean Corpuscular Volume 91.2 fL (81-99); Mean Platelet Vol. 9.1 fl (6.2-12.0); Monocyte# 1.32 X10^3/uL; Monocyte% 11.5 % (0-10); NRBC Flagged by Analyzer 0 % (0-5); Neutrophil # 6.92 X10^3/uL (2.7-7.7); Neutrophil % 60.5 % (47-70); Platelet Count 308 K/mm3 (150-450); RBC Distribution Width CV 13.6 % (11.6-14.6); RBC Distribution Width SD 46.2 fl (35.1-43.9); Red Blood Count 3.96 M/mm3 (4.2-5.4); White Blood Count 11.5 K/mm3 (4.4-11.0)
[2021-01-17] MEDS: Budesonide Respules 0.5 MG/2 ML AMPUL.NEB. INHALATION ×2 (06:57→19:43)
[2021-01-17] MEDS: Albuterol 2.5 MG/3 ML VIAL.NEB. INHALATION ×2 (06:57→19:44)
[2021-01-17 07:02] LABS: Lactic Acid 1.1 mmol/L (0.4-1.9)
[2021-01-17 07:04] LABS: Phosphorus 3.5 mg/dL (2.5-4.9)
[2021-01-17 07:10] LABS: AST(SGOT) 15 U/L (15-37); Alanine Aminotransfer ALT/SGPT 22 U/L (13-56); Alkaline Phosphatase 66 U/L (45-117); Anion Gap 9 (5-15); BUN 9 mg/dL (7-18); BUN/Creat Ratio 22.7 RATIO (10-20); Calcium,Total 7.8 mg/dL (8.5-10.1); Chloride 102 mmol/L (98-107); Cholesterol 162 mg/dL (200); EST Glomerular Filtration Rate 169 mL/min (>60); Est Glom Filt Rate - Afr Amer 205 mL/min (>60); Estimated Creatinine Clearance 46.43 ml/min; Glucose 154 mg/dL (74-106); High Density Lipoprotein 66 mg/dL; Potassium 3.6 mmol/L (3.5-5.1); Sodium Level 135 mmol/L (136-145); Thyroid Stim Hormone (TSH) 0.74 uIU/mL (0.358-3.74); Triglycerides 137 mg/dL; Very Low Density Lipoprotein 27 mg/dL (5-40)
[2021-01-17 07:37] LABS: Procalcitonin 0.04 ng/mL (0.00-0.09)
[2021-01-17] MEDS: oxyCODONE 5 MG Tablet PO ×2 (07:37→16:04)
[2021-01-17] MEDS: Potassium Chloride Oral Tablet 20 MEQ PO (07:37)
--- NOTE | 2021-01-17 08:22 | PN.HOSP_ITS ---
Subjective Subjective Patient denies any chest pain/pressure. Yesterday events noticed. Patient blood pressure was persistently low despite fluid boluses therefore started on IV norepinephrine drip. As per my last note, cath findings supported a questionable cardiomyopathy. Patient has chronic constipation. Objective Data Objective Data Vital Signs: Vital Signs Temp Pulse Resp BP Pulse Ox 98.4 F 93 14 123/61 H 100 01/17/21 06:00 01/17/21 07:00 01/17/21 07:00 01/17/21 07:00 01/17/21 07:00 Oxygen Flow Rate (L/min) 2 Oxygen Delivery Method Nasal Cannula Weight: 190 lb 4.143 oz Body Mass Index (BMI) 29.5 Intake & Output: Intake and Output for Last 24 Hours 01/15/21 01/16/21 01/17/21 23:59 23:59 23:59 Intake Total 1966.5 / 1966.5 2665.20 / 2665.20 Output Total 0 / 0 / 1 Balance 1966.5 / 1966.5 2664.20 / 2664.20 Lab / Micro Data Result Diagrams: 01/17/21 06:22 01/17/21 06:22 Labs: Laboratory Results - last 24 hr 01/16/21 13:43: Sodium 129 L, Potassium 3.6, Chloride 94 L, Carbon Dioxide 29.0, Anion Gap 6, BUN 10, Creatinine 0.50 L, Estim Creat Clear Calc 46.43, Est GFR (MDRD) Af Amer 155, Est GFR (MDRD) Non-Af 128, BUN/Creatinine Ratio 19.8, Glucose 145 H, Calcium 8.5, Total Bilirubin 0.30, Direct Bilirubin 0.12, AST 21, ALT 25, Alkaline Phosphatase 83, Troponin I High Sens 103.9 H*, Total Protein 7.6, Albumin 3.6, Globulin 4.0, Lipase 23 L 01/16/21 13:43: Magnesium 2.3 01/16/21 14:20: WBC 8.7, RBC 4.55, Hgb 13.3, Hct 40.7, MCV 89.5, MCH 29.2, MCHC 32.7, RDW Std Deviation 44.2 H, RDW Coeff of Jordin 13.4, Plt Count 345, MPV 8.8, Immature Gran % (Auto) 0.200, Neut % (Auto) 65.3, Lymph % (Auto) 25.2, [place] % (Auto) 8.2, Eos % (Auto) 0.6, Baso % (Auto) 0.5, Absolute Neuts (auto) 5.7, Absolute Lymphs (auto) 2.18, Nucleated RBC % 0 01/16/21 18:32: Troponin I High Sens 98.0 H* 01/16/21 18:32: Hgb 11.8 L, Hct 36.1 L 01/17/21 04:45: Urine Color Yellow, Urine Clarity Cloudy, Urine pH 7.0, Ur Specific [place] 1.005, Urine Protein 30 H, Urine Glucose (UA) Normal, Urine Ketones 15 H, Urine Occult Blood 150 H, Urine Nitrite Negative, Urine Bilirubin Negative, Urine Urobilinogen Normal, Ur Leukocyte Esterase 500 H, Urine RBC 10- 25 SEEN, Urine WBC >100 SEEN, Ur Squamous Epith Cells 0-5 SEEN, Urine Bacteria 2+, Urine Mucus 0 SEEN 01/17/21 06:22: WBC 11.5 H, RBC 3.96 L, Hgb 11.7 L, Hct 36.1 L, MCV 91.2, MCH 29.5, MCHC 32.4, RDW Std Deviation 46.2 H, RDW Coeff of Jordin 13.6, Plt Count 308, MPV 9.1, Immature Gran % (Auto) 0.400, Neut % (Auto) 60.5, Lymph % (Auto) 25.5, [place] % (Auto) 11.5 H, Eos % (Auto) 1.5, Baso % (Auto) 0.6, Absolute Neuts (auto) 6.9, Absolute Lymphs (auto) 2.92, Nucleated RBC % 0 01/17/21 06:22: Sodium 135 L, Potassium 3.6, Chloride 102, Carbon Dioxide 24.0, Anion Gap 9, BUN 9, Creatinine 0.40 L, Estim Creat Clear Calc 46.43, Est GFR (MDRD) Af Amer 205, Est GFR (MDRD) Non-Af 169, BUN/Creatinine Ratio 22.7 H, Glucose 154 H, Calcium 7.8 L, Total Bilirubin 0.30, AST 15, ALT 22, Alkaline Phosphatase 66, Total Protein 6.0 L, Albumin 3.0 L, Globulin 3.0, Albumin/Globulin Ratio 1.0, Triglycerides 137, Cholesterol 162, LDL Cholesterol 69, VLDL Cholesterol 27, HDL Cholesterol 66, TSH 0.74 01/17/21 06:22: Phosphorus 3.5 01/17/21 06:22: Procalcitonin 0.04 01/17/21 06:22: Lactic Acid 1.1 Radiography Diagnostic Testing: Radiology Impression Chest X-Ray 01/16/21 14:50 IMPRESSION: 1. No acute cardiopulmonary pathology. 2. Mild COPD with right upper lobe emphysema. 3. 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 4. No interval change when compared to 10/20/2020. Electronically Signed: Dexter Zavaleta MD at 15:11 EDT , Service support , Physical Exam Narrative Sinus rhythm with PVCs on radiographer cardiac catheterization Physical exam General: Awake, alert oriented x3. HEENT: Atraumatic, PERRLA, EOMI, Normocephalic Oral: No Gingival or Mucosal Lesions/ Ulcerations Neck: Supple, No JVD, Negative Carotid Bruits Lungs: Air entry diminished in bilateral lung bases. No crepitation/rhonchi Cardiovascular: Sinus rhythm. Normal S1, Normal S2, grade 2/6 LLSB systolic murmur Abdomen: Bowel Sounds Present, Soft, Non-Distended, nontender : No renal angle tenderness. No suprapubic tenderness. Extremities: No edema, Capillary Refill Less than 3 Seconds Skin: No rashes, No breakdown Musculoskeletal: No Tenderness to Palpation of Joints or Extremities Neurological: Involuntary movement of head and neck. Cranial nerves II-XII grossly intact, Deep Tendon Reflexes 2+/4 Psych/Mental Status: Anxious. Assessment & Plan Assessment/Plan (1) Acute non-ST elevation myocardial infarction (NSTEMI): PLAN: This 70-year-old female being admitted for abdominal and chest pain found to have non-STEMI 1. Non-STEMI complicated with hypotension probably cardiogenic/undifferentiated shock: MAURO risk score is high 5 points. The patient was taken to [facility] and was found to have a EF 35 to 40% consistent with Takotsubo cardiomyopathy. No significant or MR. After that she will admitted in ICU. Patient is on aspirin. Heart rate and blood pressure are in normal range. After heart cath, patient will be on Brilinta, metoprolol and high intensity statin. LIDIA/ARB in meter permitting blood pressure. 01/17: BP was consistently low despite fluid boluses started on norepinephrine drip. Patient last echo shows EF 60% with mild renal restlessness and, mild TR. 2D echo is ordered. PICC line is ordered. Lactic acid 1.1. Procalcitonin, TSH, magnesium and phosphorus are normal. 2. Abdominal pain and acute on chronic constipation CT obtained done last week demonstrated no acute infiltrative process or evidence of bowel obstruction. Patient on stool regimen including Dulcolax suppository 3 chronic hyponatremia probably related to medication cocci Cardizem: Patient was discharged on sodium 134 and admitting sodium 129. 01/17: Sodium 135 4 seizure disorder Continue oxcarbazepine. 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 6 COPD: Patient not on exacerbation VT prophylaxis: Lovenox 40 mg subcu daily. DVT prophylaxis Other multiple problem includes physical debility, restless leg syndrome, sleep apnea, chronic spinal stenosis, anxiety and depression: Living will/advanced directive/end of life care: Patient does not have living will or advanced directive. Her son present in the room is power of immigration attorney of health. After discussion of benefits/risks procedures involved with full code, DNR CC arrest and DNR CC, the patient and her son agreed for DNR-CC Arrest with no intubation Patient and her son does not want artificial life support including intubation, ventilator and/chest compression, DC shock Charges/Coding Visit Charges Inpatient E&M: 20472 Subs Hosp L3
[2021-01-17] MEDS: Ondansetron ODT 4 MG Tablet PO (09:24)
--- NOTE | 2021-01-17 09:47 | PN.CARD_ITS ---
Subjective Subjective The patient is awake and alert. She states she has experienced abdominal discomfort that she feels radiates to her chest. She denies any obvious shortness of breath or dyspnea. She states she has been under a lot of emotional stress at home with her son. Objective Data Vital Signs: Vital Signs Temp Pulse Resp BP Pulse Ox 98.4 F 101 H 14 135/85 H 100 01/17/21 06:00 01/17/21 08:45 01/17/21 08:00 01/17/21 08:45 01/17/21 08:00 Oxygen Flow Rate (L/min) 2 Oxygen Delivery Method Nasal Cannula Weight: 190 lb 4.143 oz Body Mass Index (BMI) 29.5 Intake & Output: Intake and Output for Last 24 Hours 01/15/21 01/16/21 01/17/21 23:59 23:59 23:59 Intake Total 1966. / 1966.5 3128.22 / 3128.22 Output Total 0 / 0 / 1 Balance 1966. / 1966.5 3127.22 / 3127.22 Lab / Micro Data Result Diagrams: 01/17/21 06:22 01/17/21 06:22 Labs: Laboratory Results - last 24 hr 01/16/21 13:43: Sodium 129 L, Potassium 3.6, Chloride 94 L, Carbon Dioxide 29.0, Anion Gap 6, BUN 10, Creatinine 0.50 L, Estim Creat Clear Calc 46.43, Est GFR (MDRD) Af Amer 155, Est GFR (MDRD) Non-Af 128, BUN/Creatinine Ratio 19.8, Glucose 145 H, Calcium 8.5, Total Bilirubin 0.30, Direct Bilirubin 0.12, AST 21, ALT 25, Alkaline Phosphatase 83, Troponin I High Sens 103.9 H*, Total Protein 7.6, Albumin 3.6, Globulin 4.0, Lipase 23 L 01/16/21 13:43: Magnesium 2.3 01/16/21 14:20: WBC 8.7, RBC 4.55, Hgb 13.3, Hct 40.7, MCV 89.5, MCH 29.2, MCHC 32.7, RDW Std Deviation 44.2 H, RDW Coeff of Jordin 13.4, Plt Count 345, MPV 8.8, Immature Gran % (Auto) 0.200, Neut % (Auto) 65.3, Lymph % (Auto) 25.2, [place] % (Auto) 8.2, Eos % (Auto) 0.6, Baso % (Auto) 0.5, Absolute Neuts (auto) 5.7, Absolute Lymphs (auto) 2.18, Nucleated RBC % 0 01/16/21 18:32: Troponin I High Sens 98.0 H* 01/16/21 18:32: Hgb 11.8 L, Hct 36.1 L 01/17/21 04:45: Urine Color Yellow, Urine Clarity Cloudy, Urine pH 7.0, Ur Specific [place] 1.005, Urine Protein 30 H, Urine Glucose (UA) Normal, Urine Ketones 15 H, Urine Occult Blood 150 H, Urine Nitrite Negative, Urine Bilirubin Negative, Urine Urobilinogen Normal, Ur Leukocyte Esterase 500 H, Urine RBC 10- 25 SEEN, Urine WBC >100 SEEN, Ur Squamous Epith Cells 0-5 SEEN, Urine Bacteria 2+, Urine Mucus 0 SEEN 01/17/21 06:22: WBC 11.5 H, RBC 3.96 L, Hgb 11.7 L, Hct 36.1 L, MCV 91.2, MCH 29.5, MCHC 32.4, RDW Std Deviation 46.2 H, RDW Coeff of Jordin 13.6, Plt Count 308, MPV 9.1, Immature Gran % (Auto) 0.400, Neut % (Auto) 60.5, Lymph % (Auto) 25.5, [place] % (Auto) 11.5 H, Eos % (Auto) 1.5, Baso % (Auto) 0.6, Absolute Neuts (auto) 6.9, Absolute Lymphs (auto) 2.92, Nucleated RBC % 0 01/17/21 06:22: Sodium 135 L, Potassium 3.6, Chloride 102, Carbon Dioxide 24.0, Anion Gap 9, BUN 9, Creatinine 0.40 L, Estim Creat Clear Calc 46.43, Est GFR (MDRD) Af Amer 205, Est GFR (MDRD) Non-Af 169, BUN/Creatinine Ratio 22.7 H, Glucose 154 H, Calcium 7.8 L, Total Bilirubin 0.30, AST 15, ALT 22, Alkaline Phosphatase 66, Total Protein 6.0 L, Albumin 3.0 L, Globulin 3.0, Albumin/Gl obulin Ratio 1.0, Triglycerides 137, Cholesterol 162, LDL Cholesterol 69, VLDL Cholesterol 27, HDL Cholesterol 66, TSH 0.74 01/17/21 06:22: Phosphorus 3.5 01/17/21 06:22: Procalcitonin 0.04 01/17/21 06:22: Lactic Acid 1.1 Cardiology Labs/Tests 01/16/21 13:43: Sodium 129 L, Potassium 3.6, Chloride 94 L, Carbon Dioxide 29.0, Anion Gap 6, BUN 10, Creatinine 0.50 L, Est GFR (MDRD) Af Amer 155, Est GFR (MDRD) Non-Af 128, BUN/Creatinine Ratio 19.8, Glucose 145 H, Calcium 8.5, Total Bilirubin 0.30, Direct Bilirubin 0.12 01/16/21 13:43: Magnesium 2.3 01/16/21 14:20: WBC 8.7, RBC 4.55, Hgb 13.3, Hct 40.7, MCV 89.5, MCH 29.2, MCHC 32.7, Plt Count 345, MPV 8.8, Immature Gran % (Auto) 0.200, Neut % (Auto) 65.3, Lymph % (Auto) 25.2, [place] % (Auto) 8.2, Eos % (Auto) 0.6, Baso % (Auto) 0.5, Absolute Neuts (auto) 5.7, Nucleated RBC % 0 01/16/21 18:32: Hgb 11.8 L, Hct 36.1 L 01/17/21 04:45: Urine Color Yellow, Urine Clarity Cloudy, Urine pH 7.0, Ur Specific [place] 1.005, Urine Protein 30 H, Urine Glucose (UA) Normal, Urine Ketones 15 H, Urine Occult Blood 150 H, Urine Nitrite Negative, Urine Bilirubin Negative, Urine Urobilinogen Normal, Ur Leukocyte Esterase 500 H, Urine RBC 10- 25 SEEN, Urine WBC >100 SEEN 01/17/21 06:22: WBC 11.5 H, RBC 3.96 L, Hgb 11.7 L, Hct 36.1 L, MCV 91.2, MCH 29 .5, MCHC 32.4, Plt Count 308, MPV 9.1, Immature Gran % (Auto) 0.400, Neut % (Auto) 60.5, Lymph % (Auto) 25.5, [place] % (Auto) 11.5 H, Eos % (Auto) 1.5, Baso % (Auto) 0.6, Absolute Neuts (auto) 6.9, Nucleated RBC % 0 01/17/21 06:22: Sodium 135 L, Potassium 3.6, Chloride 102, Carbon Dioxide 24.0, Anion Gap 9, BUN 9, Creatinine 0.40 L, Est GFR (MDRD) Af Amer 205, Est GFR (MDRD) Non-Af 169, BUN/Creatinine Ratio 22.7 H, Glucose 154 H, Calcium 7.8 L, Total Bilirubin 0.30, Triglycerides 137, Cholesterol 162, LDL Cholesterol 69, VLDL Cholesterol 27, HDL Cholesterol 66 01/17/21 06:22: Phosphorus 3.5 01/17/21 06:22: Lactic Acid 1.1 Rhythm: Sinus rhythm EKG: Sinus rhythm; T wave abnormality; consider myocardial ischemia; anterior/lateral/inferior; compared to the previous ECG the T wave abnormalities appear to be less prominent at this time Cardiac Cath: CONCLUSIONS Mild non obstructive CAD. EF 35-40%, wall motion abnormalities consistent with takotsubo cardiomyopathy. No significant or MR RECOMMENDATIONS DESCRIPTION OF PROCEDURE The patient arrived to the procedure lab. The risks and benefits of the procedure as well as a full description of our services here and current unavailability of surgical backup were fully explained to the patient and/or their significant other prior to the catheterization. The Timeout was completed, verifying the correct patient and procedure. The patient's procedural site was prepped and draped in the usual fashion. Local anesthetic was given subcutaneously to right groin region with Lidocaine 2%. Using a modified Seldinger technique, arterial access was obtained via the right femoral artery, a 5Fr sheath was inserted. Left Coronary Artery selective angiography was performed in multiple views using a 5 Fr. JL4 catheter. Left Ventriculography was performed in FORREST projection using a 5 Fr. JR 4. Right Coronary Artery selective angiography was then performed in multiple views using a 5 Fr. JR 4 catheter.Contrast was injected through the sheath and the Right Iliac and Femoral artery were assessed for possible closure device.The arterial sheath was pulled and a Perclose closure device was deployed for hemostasis CORONARY ANGIOGRAPHY DOMINANCE: Right Dominant LEFT HEART ASSESSMENT Left Ventricular Ejection Fraction: by LV Gram 35-40 % The base of the LV is pramod well. Rest of the LV is hypokinetic consistent with takotsubo cardiomyopathy LEFT MAIN: Mild luminal irregularities LEFT ANTERIOR DESCENDING ARTERY: Mild luminal irregularities. Myocardial bridging in mLAD CIRCUMFLEX ARTERY: Mild luminal irregularities RIGHT CORONARY ARTERY: Mild luminal irregularities VALVE FINDINGS: No Aortic Valve Stenosis No Mitral Insufficiency Radiography Diagnostic Testing: Radiology Impression Chest X-Ray 01/16/21 14:50 IMPRESSION: 1. No acute cardiopulmonary pathology. 2. Mild COPD with right upper lobe emphysema. 3. 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 4. No interval change when compared to 10/20/2020. Electronically Signed: Dexter Zavaleta MD at 15:11 EDT , Service support , Physical Exam Narrative The patient appears to be awake and alert. Const alert and oriented x3 Orientation / Consciousness: awake HEENT normocephalic, head/scalp atraumatic and hearing grossly normal bilaterally Eyes PERRL, EOMs intact bilaterally and conjunctivae normal Neck full ROM, supple and no JVD Chest inspection of chest normal Resp normal respiratory effort and clear to auscultation bilaterally Cardio regular rate, regular rhythm, S1 normal heart sound and S2 normal heart sound GI normal to inspection, nondistended, normoactive bowel sounds Extremity no pedal edema Peripheral Pulses: Yes femoral pulses present right 2+ Assessment & Plan Assessment/Plan (1) Takotsubo cardiomyopathy: PLAN: The patient has been diagnosed by Dr. 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 The initial plan was for the patient to be treated medically with agents such as beta-blockers and afterload reducing agents. However the patient was subsequently noted to be hypotensive. She was placed in the ICU for further evaluation and care. She received IV fluid supplements without significant improvement in her blood pressure. She was subsequently placed on IV vasopressor agents. She is pending further evaluation with a transthoracic echocardiogram. In the interim she has been evaluated by the ICU staff. (2) Hypotension: QUALIFIERS: Hypotension type: unspecified hypotension type Qualified Code(s): I95.9 - Hypotension, unspecified PLAN: The etiology of the patient's hypotension appears to be somewhat unclear at this time. Again she continues in the ICU. She has received IV fluids. She is receiving IV vasopressors. She has pending further evaluation with a transthoracic echocardiogram to assist in her evaluation and care. (3) Abdominal pain: QUALIFIERS: Abdominal location: lower abdomen, unspecified Qualified Code(s): R10.30 - Lower abdominal pain, unspecified PLAN: The patient has been undergoing evaluation of abdominal discomfort. She recently underwent evaluation [facility] with an abdominal/pelvic CT scan which apparently demonstrated no acute findings. She continues with concerns of abdominal discomfort. Is unclear whether this is a contributing factor to her clinical scenario and her objective findings. She will need further evaluation care per internal medicine, the ICU staff, etc. as deemed appropriate. Addt'l Comments The patient's case has been discussed and reviewed with the patient, Dr. Harry, and Dr. Jones. This note was generated using a voice recognition system and there may be incorrect words, spelling or punctuation that were not noted when reviewing the office note prior to saving.
--- NOTE | 2021-01-17 10:00 | NURSING ---
This RN saw the patient on camera sticking her fingers in her mouth attempting to make herself throw up. This RN witnessed the patient do this several times, then went into the patient room. This RN informed the patient that was seen and she needs to stop trying to make herself throw up. The patient initially said she was not doing that, however admitted she did after this RN explained to the patient that she was seen on camera several times doing it. This RN explained to the patient that Zofran PO was given to her already and if she is still feeling nauseated she needs to let this RN know so that the MD can be notified. Patient agreed.
--- NOTE | 2021-01-17 10:00 | EKG12_ITS ---
Test Reason : AM EKG Blood Pressure : / mmHG Vent. Rate : 079 BPM Atrial Rate : 079 BPM P-R Int : 150 ms QRS Dur : 088 ms QT Int : 368 ms P-R-T Axes : 084 057 063 degrees QTc Int : 421 ms Normal sinus rhythm Low voltage QRS Poor R wave progression Confirmed by JAMES LEACH, LUZ ([id number]), editor book WESLY CASTAÑEDA ([id number]) on 01/23/2021 9:15:43 AM Referred By: LINDSAY Confirmed By:LUZ RAMIREZ MD
[2021-01-17] MEDS: TITRATION PARAMETER CHANGE 1 EACH IV (10:37)
[2021-01-17] MEDS: Ondansetron 4 MG/2 ML Vial IV (10:37)
[2021-01-17] MEDS: Bisacodyl 10 MG Suppository RC (12:46)
[2021-01-17] MEDS: Senna/Docusate Sodium 1 Tablet 2 TABLET PO ×2 (12:55→20:23)
[2021-01-17] MEDS: BRIMONIDINE 0.15% 5 ML Bottle 1 DRP OPHTHALMIC ×2 (12:55→20:26)
[2021-01-17] MEDS: Benztropine 2 MG Tablet PO (12:56)
[2021-01-17] MEDS: Psyllium 1 PACKET PO ×2 (12:57→20:27)
[2021-01-17] MEDS: DULoxetine Hcl 20 MG Capsule PO (12:57)
[2021-01-17] MEDS: Pantoprazole Sodium 20 MG Tablet PO (12:58)
[2021-01-17] MEDS: Aspirin E.C. 81 MG Tablet PO (12:59)
[2021-01-17] MEDS: OXcarbazepine 600 MG Tablet PO ×2 (13:01→20:28)
[2021-01-17] MEDS: Phenobarbital 32.4 MG Tablet PO ×2 (13:07→20:31)
[2021-01-17] MEDS: Bisacodyl 5 MG Tablet PO (13:07)
--- NOTE | 2021-01-17 16:37 | NURSING ---
Soap Suds enema done, no results at time of enema
[2021-01-17] MEDS: Mirtazapine 15 MG Tablet 7.5 MG PO (20:22)
[2021-01-17] MEDS: Mirabegron 25 MG TAB.ER.24H PO (20:23)
[2021-01-17] MEDS: Pramipexole Di-HCl 1 MG Tablet PO (20:24)
[2021-01-17] MEDS: Atorvastatin Calcium 40 MG Tablet PO (20:25)
[2021-01-18] VITALS (62 sets, daily range): BP systolic 71–139; BP diastolic 43–100; PULSE 73–96; RESP 10–22; TEMP 36.8–37.6; O2SAT 98–100
[2021-01-18] MEDS: oxyCODONE 5 MG Tablet PO ×5 (00:20→20:11)
[2021-01-18] MEDS: Levothyroxine 50 MCG Tablet PO (04:20)
[2021-01-18 05:49] LABS: Absolute Lymphocyte Count 1.88 X10^3/uL (0.83-4.51); Absolute Neutrophil Count 4.5 X10^3/uL (2.0-7.7); Basophil# 0.04 X10^3/uL; Basophil% 0.5 % (0-1); Eosinophil# 0.13 X10^3/uL; Eosinophils% 1.8 % (0-5); Hematocrit 34.3 % (37-47); Hemoglobin 11.2 g/dL (12.0-15.0); Lymphocyte # 1.88 X10^3/ul (0.83-4.51); Lymphocyte % 25.5 % (19-41); Mean Corp Hgb Conc 32.7 g/dL (32-36); Mean Corpuscular Hgb 29.6 pg (27.0-32.0); Mean Corpuscular Volume 90.5 fL (81-99); Mean Platelet Vol. 8.8 fl (6.2-12.0); Monocyte# 0.76 X10^3/uL; Monocyte% 10.3 % (0-10); NRBC Flagged by Analyzer 0 % (0-5); Neutrophil # 4.51 X10^3/uL (2.7-7.7); Neutrophil % 61.4 % (47-70); Platelet Count 263 K/mm3 (150-450); RBC Distribution Width CV 13.7 % (11.6-14.6); RBC Distribution Width SD 45.4 fl (35.1-43.9); Red Blood Count 3.79 M/mm3 (4.2-5.4); White Blood Count 7.4 K/mm3 (4.4-11.0)
--- NOTE | 2021-01-18 05:55 | PCM.PN.INT ---
Assessment & Plan Assessment/Plan (1) Acute non-ST elevation myocardial infarction (NSTEMI): PLAN: RECOMMENDATIONS: 1. Continue empiric antimicrobials, pending infectious work-up. 2. Wean supplemental oxygen to maintain saturations at or above 90%. 3. Encourage incentive spirometer use and mobilize patient as tolerated. IMPRESSIONS: 1. Undifferentiated shock The exact etiology for the patient's hypotension is unclear. The patient's hypotension was fluid refractory and she was therefore started on vasopressor support, which has since been weaned off. There does not appear to be any focal source of blood loss. There is no concern for cardiogenic shock. The patient is afebrile with only a mildly elevated white blood cell count. However, the patient does report the presence of dysuria and had a UA which was positive for leukocyte esterase, white blood cells and 2+ urine bacteria. Therefore, the patient was placed on antimicrobial therapy to cover for potential urinary tract source of infection. Cultures are currently pending. 2. Non-ST segment elevation NC/Takotsubo cardiomyopathy The patient did undergo cardiac catheterization, which revealed mild nonobstructive coronary disease and an ejection fraction of 35 to 40%. Plan to continue medical management. 3. Chronic constipation/unspecified seizure disorder/essential tremor/chronic back pain/depression Complicates care, management, recovery and prognosis. Continue home medications as indicated. This note was generated with [employer] dictation software. It may contain incorrect words, spelling, and punctuation that were not noted in checking the note before signing. Subjective Subjective The patient was seen and examined at the bedside this morning. Events from the last 24 hours have been reviewed. The patient is currently afebrile, hemodynamically stable and maintaining appropriate oxygen saturations on 2 L/min via nasal cannula. The patient was able to be weaned off of Levophed yesterday. However, per nursing report, overnight while sleeping the patient had to be restarted on low-dose Levophed for very short period of time. She has since been weaned off of vasopressor support once again. She is currently documented to be overall net +4.8 L for the hospital admission. Hemoglobin remains stable. The patient does report some mild low back pain this morning. Objective Data Objective Data The patient's most recent lab work, culture data and imaging studies have all been personally reviewed. Surface echocardiogram revealed moderate segmental systolic dysfunction with an ejection fraction of 35%. Blood and urine cultures are pending. Vital Signs: Vital Signs Temp Pulse Resp BP Pulse Ox 99.6 F H 96 14 117/67 100 01/18/21 00:06 01/18/21 03:32 01/18/21 00:06 01/18/21 05:30 01/18/21 00:06 Oxygen Flow Rate (L/min) 2 Oxygen Delivery Method Nasal Cannula Weight: 81.9 kg Body Mass Index (BMI) 29.5 Intake & Output: Intake and Output for Last 24 Hours 01/16/21 01/17/21 01/18/21 23:59 23:59 23:59 Intake Total 1966.1966. 3403.47 / 3410.52 154.70 / 154.70 Output Total 0 / 0 451 / 451 200 / 200 Balance 2952.47 / 2959.52 -45.30 / -45.30 Medical Nutrition Assessment Dietitian: Nutrition Therapy Diagnosis Start: 01/17/21 09:17 Freq: Status: Active Protocol: Document 01/17/21 09:33 SLA (Rec: 01/17/21 09:33 SLA [id number]) Nutrition Malnutrition Evidence of Malnutrition Exists No Clinical Problem Biting/Chewing Difficulty Etiology related to edentulous Signs/Symptoms as evidenced by pt requesting for mech soft diet consistency for ease of eating Status Active Problem Recommendation Dietitian Recommendations/Changes Will continue Cardiac diet - but will make mech soft consistency per pt request Will provide ensure enlive 4x/ day with medpass for increased nutrition if consumed. Lab / Micro Data Attestation: I reviewed the patient's lab results. Result Diagrams: 01/18/21 05:30 01/18/21 05:30 Labs: Laboratory Results - last 24 hr 01/17/21 06:22: WBC 11.5 H, RBC 3.96 L, Hgb 11.7 L, Hct 36.1 L, MCV 91.2, MCH 29.5, MCHC 32.4, RDW Std Deviation 46.2 H, RDW Coeff of Jordin 13.6, Plt Count 308, MPV 9.1, Immature Gran % (Auto) 0.400, Neut % (Auto) 60.5, Lymph % (Auto) 25.5, [place] % (Auto) 11.5 H, Eos % (Auto) 1.5, Baso % (Auto) 0.6, Absolute Neuts (auto) 6.9, Absolute Lymphs (auto) 2.92, Nucleated RBC % 0 01/17/21 06:22: Sodium 135 L, Potassium 3.6, Chloride 102, Carbon Dioxide 24.0, Anion Gap 9, BUN 9, Creatinine 0.40 L, Estim Creat Clear Calc 46.43, Est GFR (MDRD) Af Amer 205, Est GFR (MDRD) Non-Af 169, BUN/Creatinine Ratio 22.7 H, Glucose 154 H, Calcium 7.8 L, Total Bilirubin 0.30, AST 15, ALT 22, Alkaline Phosphatase 66, Total Protein 6.0 L, Albumin 3.0 L, Globulin 3.0, Albumin/Globulin Ratio 1.0, Triglycerides 137, Cholesterol 162, LDL Cholesterol 69, VLDL Cholesterol 27, HDL Cholesterol 66, TSH 0.74 01/17/21 06:22: Phosphorus 3.5 01/17/21 06:22: Procalcitonin 0.04 01/17/21 06:22: Lactic Acid 1.1 01/18/21 05:30: WBC 7.4, RBC 3.79 L, Hgb 11.2 L, Hct 34.3 L, MCV 90.5, MCH 29.6, MCHC 32.7, RDW Std Deviation 45.4 H, RDW Coeff of Jordin 13.7, Plt Count 263, MPV 8.8, Immature Gran % (Auto) 0.500, Neut % (Auto) 61.4, Lymph % (Auto) 25.5, [place] % (Auto) 10.3 H, Eos % (Auto) 1.8, Baso % (Auto) 0.5, Absolute Neuts (auto) 4.5, Absolute Lymphs (auto) 1.88, Nucleated RBC % 0 Radiography Diagnostic Testing: Radiology Impression Echocardiogram 01/16/21 17:57 Interpretation Summary The study was technically difficult. Moderate segmental systolic dysfunction (see wall motion). The estimated ejection fraction is 35 %. Mild (1+) eccentric mitral valve insufficiency. Mild eccentric tricuspid valve insufficiency. Trivial pericardial effusion. There are no echocardiographic indications of cardiac tamponade. Unable to estimate RV systolic pressure/pulmonary artery pressure due to technically difficult study. Diastolic function is indeterminate. Ordering Physician: Valentín Harry Referring Physician: Patel Veliz Chi Performed By: Mao Cheng RCS Physical Exam Const alert and no apparent distress General Appearance: cooperative HEENT normocephalic, head/scalp atraumatic and moist oral mucous membranes Eyes PERRL, EOMs intact bilaterally and conjunctivae normal Neck supple General: trachea midline Resp normal respiratory effort and no use of accessory muscles Auscultation: Negative for rales, rhonchi or wheezes Cardio regular rate and regular rhythm GI normal to inspection, nondistended, normoactive bowel sounds Extremity no clubbing, cyanosis or edema Skin no rashes or lesions noted Neuro no focal motor deficits Psych cooperative and affect normal Charges/Coding Visit Charges Inpatient E&M: 80346 Subs Hosp L3
[2021-01-18 06:13] LABS: Anion Gap 7 (5-15); BUN 5 mg/dL (7-18); BUN/Creat Ratio 15.1 RATIO (10-20); Calcium,Total 7.8 mg/dL (8.5-10.1); Chloride 102 mmol/L (98-107); Creatinine, Serum 0.33 mg/dL (0.55-1.02); EST Glomerular Filtration Rate 207 mL/min (>60); Est Glom Filt Rate - Afr Amer 251 mL/min (>60); Estimated Creatinine Clearance 46.43 ml/min; Glucose 144 mg/dL (74-106); Potassium 3.5 mmol/L (3.5-5.1); Sodium Level 135 mmol/L (136-145)
[2021-01-18] MEDS: Albuterol 2.5 MG/3 ML VIAL.NEB. INHALATION (06:51)
[2021-01-18] MEDS: Budesonide Respules 0.5 MG/2 ML AMPUL.NEB. INHALATION ×2 (06:51→19:22)
[2021-01-18] MEDS: Psyllium 1 PACKET PO ×2 (08:35→21:11)
[2021-01-18] MEDS: Senna/Docusate Sodium 1 Tablet 2 TABLET PO ×2 (08:35→21:12)
[2021-01-18] MEDS: Pantoprazole Sodium 20 MG Tablet PO (08:35)
[2021-01-18] MEDS: OXcarbazepine 600 MG Tablet PO ×2 (08:35→21:11)
[2021-01-18] MEDS: Potassium Chloride Oral Tablet 20 MEQ PO ×2 (08:35→17:42)
[2021-01-18] MEDS: BRIMONIDINE 0.15% 5 ML Bottle 1 DRP OPHTHALMIC ×2 (08:35→21:13)
[2021-01-18] MEDS: DULoxetine Hcl 20 MG Capsule PO (08:35)
[2021-01-18] MEDS: Mirabegron 25 MG TAB.ER.24H PO (08:35)
[2021-01-18] MEDS: Bisacodyl 10 MG Suppository RC (08:36)
[2021-01-18] MEDS: Phenobarbital 32.4 MG Tablet PO ×2 (08:40→21:13)
[2021-01-18] MEDS: Acetaminophen 325 MG Tablet 650 MG PO (08:45)
--- NOTE | 2021-01-18 10:00 | EKG12_ITS ---
Test Reason : AM EKG Blood Pressure : / mmHG Vent. Rate : 096 BPM Atrial Rate : 096 BPM P-R Int : 154 ms QRS Dur : 088 ms QT Int : 352 ms P-R-T Axes : 053 -04 057 degrees QTc Int : 444 ms Normal sinus rhythm Nonspecific T wave abnormality Abnormal ECG Confirmed by JAMES LEACH, LUZ ([id number]), associate editor WESLY CASATÑEDA ([id number]) on 01/23/2021 9:17:36 AM Referred By: LINDSAY Confirmed By:LUZ RAMIREZ MD
--- NOTE | 2021-01-18 10:10 | PCM.PN.HOSP ---
Subjective Subjective T-max 99. 6 Fahrenheit. Heart rate is controlled. Patient did not had good bowel movement. Suppository and enema was given. Anticholinergic medications were held. On multiple neurological medications for extrapyramidal syndrome Objective Data Objective Data Vital Signs: Vital Signs Temp Pulse Resp BP Pulse Ox 98.6 F 93 20 H 102/60 99 01/18/21 08:30 01/18/21 08:30 01/18/21 08:30 01/18/21 08:30 01/18/21 08:30 Oxygen Flow Rate (L/min) 2 Oxygen Delivery Method Nasal Cannula Weight: 180 lb 8.937 oz Body Mass Index (BMI) 29.5 Intake & Output: Intake and Output for Last 24 Hours 01/16/21 01/17/21 01/18/21 23:59 23:59 23:59 Intake Total 1966. / 1966. 3403.47 / 3410.52 274.70 / 274.70 Output Total 0 / 0 451 / 451 200 / 200 Balance 1966.1966. 2952.47 / 2959.52 74.70 / 74.70 Medical Nutrition Assessment Dietitian: Nutrition Therapy Diagnosis Start: 01/17/21 09:17 Freq: Status: Active Protocol: Document 01/18/21 09:22 LEONARD (Rec: 01/18/21 09:22 [facility] [id number]) Nutrition Malnutrition Evidence of Malnutrition Exists No Intake Problem Inadequate Oral Intake Etiology related to issues w/ constipation Signs/Symptoms as evidenced by last BM 01/11 and pt c/o feeling full when eating only small amounts. Status Active Problem Clinical Problem Biting/Chewing Difficulty Etiology related to edentulous Signs/Symptoms as evidenced by pt requesting for mech soft diet consistency for ease of eating Status Active Problem Recommendation Dietitian Recommendations/Changes Will continue Cardiac diet - but will make mech soft consistency per pt request Will continue to provide ensure enlive 4x/day with medpass for increased nutrition if consumed. Lab / Micro Data Result Diagrams: 01/18/21 05:30 01/18/21 05:30 Labs: Laboratory Results - last 24 hr 01/18/21 05:30: WBC 7.4, RBC 3.79 L, Hgb 11.2 L, Hct 34.3 L, MCV 90.5, MCH 29.6, MCHC 32.7, RDW Std Deviation 45.4 H, RDW Coeff of Jordin 13.7, Plt Count 263, MPV 8.8, Immature Gran % (Auto) 0.500, Neut % (Auto) 61.4, Lymph % (Auto) 25.5, [place] % (Auto) 10.3 H, Eos % (Auto) 1.8, Baso % (Auto) 0.5, Absolute Neuts (auto) 4.5, Absolute Lymphs (auto) 1.88, Nucleated RBC % 0 01/18/21 05:30: Sodium 135 L, Potassium 3.5, Chloride 102, Carbon Dioxide 26.0, Anion Gap 7, BUN 5 L, Creatinine 0.33 L, Estim Creat Clear Calc 46.43, Est GFR (MDRD) Af Amer 251, Est GFR (MDRD) Non-Af 207, BUN/Creatinine Ratio 15.1, Glucose 144 H, Calcium 7.8 L Radiography Diagnostic Testing: Radiology Impression Echocardiogram 01/16/21 17:57 Interpretation Summary The study was technically difficult. Moderate segmental systolic dysfunction (see wall motion). The estimated ejection fraction is 35 %. Mild (1+) eccentric mitral valve insufficiency. Mild eccentric tricuspid valve insufficiency. Trivial pericardial effusion. There are no echocardiographic indications of cardiac tamponade. Unable to estimate RV systolic pressure/pulmonary artery pressure due to technically difficult study. Diastolic function is indeterminate. Ordering Physician: Valentín Harry Referring Physician: Patel Veliz Chi Performed By: Mao Cheng RCS Physical Exam Narrative Seen and examined. No chest pain or abdominal pain. Physical exam General: Awake, alert oriented x3. HEENT: Atraumatic, PERRLA, EOMI, Normocephalic Oral: No Gingival or Mucosal Lesions/ Ulcerations Neck: Supple, No JVD, Negative Carotid Bruits Lungs: Air entry diminished in bilateral lung bases. No crepitation/rhonchi Cardiovascular: Sinus rhythm. Normal S1, Normal S2, grade 2/6 LLSB systolic murmur Abdomen: Bowel Sounds Present, Soft, Non-Distended, nontender : No renal angle tenderness. No suprapubic tenderness. Extremities: No edema, Capillary Refill Less than 3 Seconds Skin: No rashes, No breakdown Musculoskeletal: ROM restricted. Weakness of lower extremity muscles. No Tenderness to Palpation of Joints or Extremities Neurological: Involuntary movement of head and neck. Cranial nerves II-XII grossly intact, Deep Tendon Reflexes 2+/4 Psych/Mental Status: Anxious. Assessment & Plan Assessment/Plan (1) Acute non-ST elevation myocardial infarction (NSTEMI): PLAN: This 70-year-old female being admitted for abdominal and chest pain found to have non-STEMI 1. Non-STEMI complicated with hypotension probably cardiogenic/undifferentiated shock: MAURO risk score is high 5 points. The patient was taken to [facility] and was found to have a EF 35 to 40% consistent with Takotsubo cardiomyopathy. No significant or MR. After that she will admitted in ICU. Patient is on aspirin. Heart rate and blood pressure are in normal range. After heart cath, patient will be on Brilinta, metoprolol and high intensity statin. LIDIA/ARB in meter permitting blood pressure. 01/17: BP was consistently low despite fluid boluses started on norepinephrine drip. Patient last echo shows EF 60% with mild renal restlessness and, mild TR. 2D echo is ordered. PICC line is ordered. Lactic acid 1.1. Procalcitonin, TSH, magnesium and phosphorus are normal. 01/18: Patient had midline in right arm. Patient is off Levophed since 4 AM. Blood pressure on lower side 107/71. Second 81/48. Monitor and if needed will restart Levophed drip 2. Abdominal pain and acute on chronic constipation CT obtained done last week demonstrated no acute infiltrative process or evidence of bowel obstruction. Patient on stool regimen including Dulcolax suppository 01/18: Patient did not had success with Dulcolax suppository, enema and oral regimen. Dulcolax oral ordered. Soapsuds enema. CT abdomen showed rectocele/pelvic floor instability. 3 chronic hyponatremia probably related to medication cocci Cardizem: Patient was discharged on sodium 134 and admitting sodium 129. 01/17: Sodium 135 4 seizure disorder Continue oxcarbazepine. 5 involuntary/extrapyramidal movement disorder 01/18: Benztropine, Myrbetriq are held. 6 COPD: Patient not on exacerbation VT prophylaxis: Lovenox 40 mg subcu daily. DVT prophylaxis Other multiple problem includes physical debility, restless leg syndrome, sleep apnea, chronic spinal stenosis, anxiety and depression: Living will/advanced directive/end of life care: Patient does not have living will or advanced directive. Her son present in the room is power of corporate attorney of [facility]. After discussion of benefits/risks procedures involved with full code, DNR CC arrest and DNR CC, the patient and her son agreed for DNR-CC Arrest with no intubation Patient and her son does not want artificial life support including intubation, ventilator and/chest compression, DC shock Charges/Coding Visit Charges Inpatient E&M: 68688 Subs Hosp L3
--- NOTE | 2021-01-18 10:55 | PN.CARD_ITS ---
Subjective Subjective The patient remains in the ICU. She appears to be resting comfortably in the supine position. Objective Data Vital Signs: Vital Signs Temp Pulse Resp BP Pulse Ox 98.4 F 88 20 H 81/48 L 99 01/18/21 09:01 01/18/21 10:01/18/21 10:01 01/18/21 10:01/18/21 10:01 Oxygen Flow Rate (L/min) 2 Oxygen Delivery Method Nasal Cannula Weight: 180 lb 8.937 oz Body Mass Index (BMI) 29.5 Intake & Output: Intake and Output for Last 24 Hours 01/16/21 01/17/21 01/18/21 23:59 23:59 23:59 Intake Total 1966. / 1966.5 3403.47 / 3410.52 274.70 / 274.70 Output Total 0 / 0 451 / 451 200 / 200 Balance 1966. / 1966. 2952.47 / 2959.52 74.70 / 74.70 Lab / Micro Data Result Diagrams: 01/18/21 05:30 01/18/21 05:30 Labs: Laboratory Results - last 24 hr 01/18/21 05:30: WBC 7.4, RBC 3.79 L, Hgb 11.2 L, Hct 34.3 L, MCV 90.5, MCH 29.6, MCHC 32.7, RDW Std Deviation 45.4 H, RDW Coeff of Jordin 13.7, Plt Count 263, MPV 8.8, Immature Gran % (Auto) 0.500, Neut % (Auto) 61.4, Lymph % (Auto) 25.5, [place] % (Auto) 10.3 H, Eos % (Auto) 1.8, Baso % (Auto) 0.5, Absolute Neuts (auto) 4.5, Absolute Lymphs (auto) 1.88, Nucleated RBC % 0 01/18/21 05:30: Sodium 135 L, Potassium 3.5, Chloride 102, Carbon Dioxide 26.0, Anion Gap 7, BUN 5 L, Creatinine 0.33 L, Estim Creat Clear Calc 46.43, Est GFR (MDRD) Af Amer 251, Est GFR (MDRD) Non-Af 207, BUN/Creatinine Ratio 15.1, Glucose 144 H, Calcium 7.8 L Cardiology Labs/Tests 01/18/21 05:30: WBC 7.4, RBC 3.79 L, Hgb 11.2 L, Hct 34.3 L, MCV 90.5, MCH 29.6, MCHC 32.7, Plt Count 263, MPV 8.8, Immature Gran % (Auto) 0.500, Neut % (Auto) 61.4, Lymph % (Auto) 25.5, [place] % (Auto) 10.3 H, Eos % (Auto) 1.8, Baso % (Auto) 0.5, Absolute Neuts (auto) 4.5, Nucleated RBC % 0 01/18/21 05:30: Sodium 135 L, Potassium 3.5, Chloride 102, Carbon Dioxide 26.0, Anion Gap 7, BUN 5 L, Creatinine 0.33 L, Est GFR (MDRD) Af Amer 251, Est GFR (MDRD) Non-Af 207, BUN/Creatinine Ratio 15.1, Glucose 144 H, Calcium 7.8 L Rhythm: Sinus rhythm EKG: Sinus rhythm; nonspecific T wave abnormality (less prominent than previous ECGs) ECHO: As noted below Cardiac Cath: CONCLUSIONS Mild non obstructive CAD. EF 35-40%, wall motion abnormalities consistent with takotsubo cardiomyopathy. No significant or MR RECOMMENDATIONS DESCRIPTION OF PROCEDURE The patient arrived to the procedure lab. The risks and benefits of the procedure as well as a full description of our services here and current unavailability of surgical backup were fully explained to the patient and/or the ir significant other prior to the catheterization. The Timeout was completed, verifying the correct patient and procedure. The patient's procedural site was prepped and draped in the usual fashion. Local anesthetic was given subcutaneously to right groin region with Lidocaine 2%. Using a modified Se wilkes technique, arterial access was obtained via the right femoral artery, a 5Fr sheath was inserted. Left Coronary Artery selective angiography was performed in multiple views using a 5 Fr. JL4 catheter. Left Ventriculography was performed in FORREST projection using a 5 Fr. JR 4. Right Coronary Artery selective angiography was then performed in multiple views using a 5 Fr. JR 4 catheter.Contrast was injected through the sheath and the Right Iliac and Femoral artery were assessed for possible closure device.The arterial sheath was pulled and a Perclose closure device was deployed for hemostasis CORONARY ANGIOGRAPHY DOMINANCE: Right Dominant LEFT HEART ASSESSMENT Left Ventricular Ejection Fraction: by LV Gram 35-40 % The base of the LV is pramod well. Rest of the LV is hypokinetic consistent with takotsubo cardiomyopathy LEFT MAIN: Mild luminal irregularities LEFT ANTERIOR DESCENDING ARTERY: Mild luminal irregularities. Myocardial bridging in mLAD CIRCUMFLEX ARTERY: Mild luminal irregularities RIGHT CORONARY ARTERY: Mild luminal irregularities VALVE FINDINGS: No Aortic Valve Stenosis No Mitral Insufficiency Radiography Diagnostic Testing: Radiology Impression Echocardiogram 01/16/21 17:57 Interpretation Summary The study was technically difficult. Moderate segmental systolic dysfunction (see wall motion). The estimated ejection fraction is 35 %. Mild (1+) eccentric mitral valve insufficiency. Mild eccentric tricuspid valve insufficiency. Trivial pericardial effusion. There are no echocardiographic indications of cardiac tamponade. Unable to estimate RV systolic pressure/pulmonary artery pressure due to technically difficult study. Diastolic function is indeterminate. Ordering Physician: Valentín Harry Referring Physician: Patel Veliz Chi Performed By: Mao Cheng RCS Physical Exam Narrative The patient appears to be awake and alert. Const alert and oriented x3 Orientation / Consciousness: awake HEENT normocephalic, head/scalp atraumatic and hearing grossly normal bilaterally Eyes PERRL, EOMs intact bilaterally, conjunctivae normal and no scleral icterus Neck full ROM, supple and no JVD Chest inspection of chest normal Resp normal respiratory effort and clear to auscultation bilaterally Cardio regular rate, regular rhythm, S1 normal heart sound and S2 normal heart sound GI normal to inspection, nondistended, normoactive bowel sounds Extremity General Extremity: edema bilateral lower extremity Details: trace Skin no rashes or lesions noted Neuro oriented x3 Assessment & Plan Assessment/Plan (1) Takotsubo cardiomyopathy: PLAN: The patient has been diagnosed by Dr. 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 The initial plan was for the patient to be treated medically with agents such as beta-blockers and afterload reducing agents. However the patient was subsequently noted to be hypotensive. She was placed in the ICU for further evaluation and care. She received IV fluid supplements without significant improvement in her blood pressure. She was subsequently placed on IV vasopressor agents. She is now off of the IV vasopressor agents. However, her blood pressure remains borderline low to low, thus, making challenging to initiate additional cardiovascular medication such as beta-blockers or LIDIA inhibitor/ARB 80s. She did have a follow-up transthoracic echocardiogram. The results are as noted below. At the present time she'll continue to be monitored. Hopefully her vital signs will stabilize which will allow her to initiate additional cardiovascular medical therapy. (2) Hypotension: QUALIFIERS: Hypotension type: unspecified hypotension type Qualified Code(s): I95.9 - Hypotension, unspecified PLAN: The etiology of the patient's hypotension appears to be somewhat unclear at this time. Again she continues in the ICU. She has received IV fluids. She did receive IV vasopressor agents. She is currently without them. However, as noted above, her blood pressure remains borderline low to low thus making it difficult to initiate additional cardiovascular medical therapy such as beta-blockers or afterload reducing agents. Her echocardiogram is as noted. She'll continue to be followed with the hopes that her vital signs stabilized so that she can initiate additional cardiovascular medical therapy to assist with her acute cardiovascular event/Takotsubo syndrome. (3) Abdominal pain: QUALIFIERS: Abdominal location: lower abdomen, unspecified Qualified Code(s): R10.30 - Lower abdominal pain, unspecified PLAN: The patient has been undergoing evaluation of abdominal discomfort. She recently underwent evaluation [facility] with an abdominal/pelvic CT scan which apparently demonstrated no acute findings. She continues with concerns of abdominal discomfort. Is unclear whether this is a contributing factor to her clinical scenario and her objective findings. She will need further evaluation care per internal medicine, the ICU staff, etc. as deemed appropriate. Addt'l Comments This note was generated using a voice recognition system and there may be incorrect words, spelling or punctuation that were not noted when reviewing the office note prior to saving.
[2021-01-18] MEDS: Enoxaparin 40 MG/0.4 ML Syringe SC (10:58)
[2021-01-18] MEDS: Bisacodyl 5 MG Tablet 10 MG PO (10:58)
[2021-01-18] MEDS: Aspirin E.C. 81 MG Tablet PO (10:58)
[2021-01-18] MEDS: Multivitamins,Therapeutic Tablet 1 TABLET PO (10:58)
[2021-01-18] MEDS: Midodrine HCl 5 MG Tablet 10 MG PO ×2 (10:58→17:42)
[2021-01-18] MEDS: Mirtazapine 15 MG Tablet 7.5 MG PO (21:11)
[2021-01-18] MEDS: Temazepam 15 MG Capsule 30 MG PO (21:12)
[2021-01-18] MEDS: Atorvastatin Calcium 40 MG Tablet PO (21:12)
[2021-01-18] MEDS: Pramipexole Di-HCl 1 MG Tablet PO (21:12)
[2021-01-18] MEDS: Ondansetron 4 MG/2 ML Vial IV (21:23)
--- NOTE | 2021-01-18 23:34 | NURSING ---
2315: restarted levophed at this time as pt is hypotensive . BP 77/50, HR 75. pt currently sleeping but easily arouses to verbal stimuli and reports she just wants to sleep. explained to patient was going to restart levophed d/t low blood pressure. pt said ok & fell back to sleep
[2021-01-19] VITALS (39 sets, daily range): BP systolic 94–159; BP diastolic 49–101; PULSE 78–115; RESP 13–25; TEMP 36.8–37.1; O2SAT 94–100
[2021-01-19 04:29] LABS: Absolute Lymphocyte Count 2.52 X10^3/uL (0.83-4.51); Absolute Neutrophil Count 4.5 X10^3/uL (2.0-7.7); Basophil# 0.07 X10^3/uL; Basophil% 0.9 % (0-1); Eosinophil# 0.37 X10^3/uL; Eosinophils% 4.5 % (0-5); Hematocrit 37.7 % (37-47); Hemoglobin 12.1 g/dL (12.0-15.0); Lymphocyte # 2.52 X10^3/ul (0.83-4.51); Lymphocyte % 30.7 % (19-41); Mean Corp Hgb Conc 32.1 g/dL (32-36); Mean Corpuscular Hgb 29.7 pg (27.0-32.0); Mean Corpuscular Volume 92.4 fL (81-99); Mean Platelet Vol. 9.1 fl (6.2-12.0); Monocyte# 0.74 X10^3/uL; NRBC Flagged by Analyzer 0 % (0-5); Neutrophil # 4.48 X10^3/uL (2.7-7.7); Neutrophil % 54.5 % (47-70); Platelet Count 311 K/mm3 (150-450); RBC Distribution Width CV 13.7 % (11.6-14.6); RBC Distribution Width SD 46.6 fl (35.1-43.9); Red Blood Count 4.08 M/mm3 (4.2-5.4); White Blood Count 8.2 K/mm3 (4.4-11.0)
[2021-01-19 04:44] LABS: Anion Gap 6 (5-15); BUN 7 mg/dL (7-18); BUN/Creat Ratio 16.9 RATIO (10-20); Chloride 101 mmol/L (98-107); Creatinine, Serum 0.41 mg/dL (0.55-1.02); EST Glomerular Filtration Rate 161 mL/min (>60); Est Glom Filt Rate - Afr Amer 195 mL/min (>60); Estimated Creatinine Clearance 46.43 ml/min; Glucose 162 mg/dL (74-106); Potassium 3.9 mmol/L (3.5-5.1); Sodium Level 137 mmol/L (136-145)
[2021-01-19] MEDS: Ondansetron 4 MG/2 ML Vial IV ×3 (05:23→18:43)
[2021-01-19] MEDS: Levothyroxine 50 MCG Tablet PO (05:30)
--- NOTE | 2021-01-19 06:32 | PN.CC_ITS ---
Assessment & Plan Assessment/Plan (1) Acute non-ST elevation myocardial infarction (NSTEMI): PLAN: RECOMMENDATIONS: 1. Continue empiric antimicrobials, pending urine culture. 2. Wean supplemental oxygen to maintain saturations at or above 90%. 3. Encourage incentive spirometer use and mobilize patient as tolerated. 4. Wean pressors as tolerated IMPRESSIONS: 1. Undifferentiated shock The exact etiology for the patient's hypotension is unclear. The patient's hypotension was fluid refractory and she was therefore started on vasopressor support, which continues to be required overnight. There does not appear to be any focal source of blood loss. Patient does have a decreased EF, but is also noted to have a positive urine culture. The patient is afebrile with only a mildly elevated white blood cell count. However, the patient does report the presence of dysuria and had a UA which was positive for leukocyte esterase, white blood cells and 2+ urine bacteria. Therefore, the patient was placed on antimicrobial therapy to cover for potential urinary tract source of infection. Cultures are currently pending. 2. Non-ST segment elevation NH/Takotsubo cardiomyopathy The patient did undergo cardiac catheterization, which revealed mild nonobstructive coronary disease and an ejection fraction of 35 to 40%. Plan to continue medical management. 3. Chronic constipation/unspecified seizure disorder/essential tremor/chronic back pain/depression Complicates care, management, recovery and prognosis. Continue home medications as indicated. Unclear if medications nocturnally are adding to current situation. If patient is unresponsive to antibiotics, may need to assess removal of medications in a stepwise fashion. TIME: 32 minutes critical care time spent addressing patient's shock, chest pain, nausea, review of all data and collaboration with care team (5:20 AM to 6:20 AM) Subjective Subjective Patient did okay throughout the evening. Patient did have recurrence of chest pain and nausea this morning and was treated symptomatically. Patient has required Levophed overnight to maintain appropriate blood pressures. Patient was on oxygen, but saturating 100%. Objective Data Objective Data Echocardiogram shows an EF of 35% with multiple segments with decreased motion Vital Signs: Vital Signs Temp Pulse Resp BP Pulse Ox 37.0 C 88 19 H 136/75 H 100 01/18/21 20:00 01/19/21 06:00 01/19/21 06:00 01/19/21 06:00 01/19/21 05:15 Oxygen Flow Rate (L/min) 2 Oxygen Delivery Method Nasal Cannula Weight: 82.1 kg Body Mass Index (BMI) 29.5 Intake & Output: Intake and Output for Last 24 Hours 01/17/21 01/18/21 01/19/21 23:59 23:59 23:59 Intake Total 3403.47 / 3410.52 1528.27 / 1530.62 171.70 / 171.70 Output Total 451 / 451 1150 / 1150 Balance 2952.47 / 2959.52 378.27 / 380.62 171.70 / 171.70 Medical Nutrition Assessment Dietitian: Nutrition Therapy Diagnosis Start: 01/17/21 09:17 Freq: Status: Active Protocol: Document 01/18/21 09:22 [facility] (Rec: 01/18/21 09:22 [facility] [id number]) Nutrition Malnutrition Evidence of Malnutrition Exists No Intake Problem Inadequate Oral Intake Etiology related to issues w/ constipation Signs/Symptoms as evidenced by last BM 01/11 and pt c/o feeling full when eating only small amounts. Status Active Problem Clinical Problem Biting/Chewing Difficulty Etiology related to edentulous Signs/Symptoms as evidenced by pt requesting for mech soft diet consistency for ease of eating Status Active Problem Recommendation Dietitian Recommendations/Changes Will continue Cardiac diet - but will make mech soft consistency per pt request Will continue to provide ensure enlive 4x/day with medpass for increased nutrition if consumed. Lab / Micro Data Result Diagrams: 01/19/21 04:25 01/19/21 04:25 Labs: Laboratory Results - last 24 hr 01/19/21 04:25: WBC 8.2, RBC 4.08 L, Hgb 12.1, Hct 37.7, MCV 92.4, MCH 29.7, MCHC 32.1, RDW Std Deviation 46.6 H, RDW Coeff of Jordin 13.7, Plt Count 311, MPV 9.1, Immature Gran % (Auto) 0.400, Neut % (Auto) 54.5, Lymph % (Auto) 30.7, [place] % (Auto) 9.0, Eos % (Auto) 4.5, Baso % (Auto) 0.9, Absolute Neuts (auto) 4.5, Absolute Lymphs (auto) 2.52, Nucleated RBC % 0 01/19/21 04:25: Sodium 137, Potassium 3.9, Chloride 101, Carbon Dioxide 30.0, Anion Gap 6, BUN 7, Creatinine 0.41 L, Estim Creat Clear Calc 46.43, Est GFR (MDRD) Af Amer 195, Est GFR (MDRD) Non-Af 161, BUN/Creatinine Ratio 16.9, Glucose 162 H, Calcium 8.0 L Micro: Microbiology 01/17/21 04:45 Urine, Clean Catch Urine Culture - Preliminary Alpha hemolytic organism Mixed Gram Positive Organisms Physical Exam Const alert and no apparent distress General Appearance: cooperative and well developed HEENT normocephalic, head/scalp atraumatic and moist oral mucous membranes Eyes PERRL and EOMs intact bilaterally Neck full ROM and no lymphadenopathy Chest inspection of chest normal Resp normal respiratory effort and no use of accessory muscles Effort and Inspection: able to speak in complete sentences Auscultation: clear to auscultation bilaterally; Negative for rales, rhonchi or wheezes Percussion: Negative for dullness Cardio regular rate, regular rhythm, S1 normal heart sound, S2 normal heart sound, no murmurs, no rub and no gallops GI normal to inspection, nondistended, normoactive bowel sounds no CVA tenderness Extremity no clubbing, cyanosis or edema Skin no rashes or lesions noted Neuro CN's II-XII intact bilaterally, moves all extremities and no focal motor deficits Psych cooperative and affect normal Charges/Coding Procedures Hospitalists Procedures: 67113 Critial Care 1st Hr
--- NOTE | 2021-01-19 07:56 | PN.HOSP_ITS ---
Subjective Subjective Patient was started on Levophed drip as her blood pressure dropped. She complained of generalized nonspecific abdominal pain which feels like constant and achy. No fever or chills. T-max 99.3 Objective Data Objective Data Vital Signs: Vital Signs Temp Pulse Resp BP Pulse Ox 98.6 F 94 18 149/70 H 100 01/18/21 20:00 01/19/21 07:54 01/19/21 07:15 01/19/21 07:45 01/19/21 07:15 Oxygen Flow Rate (L/min) 2 Oxygen Delivery Method Nasal Cannula Weight: 180 lb 15.992 oz Body Mass Index (BMI) 29.5 Intake & Output: Intake and Output for Last 24 Hours 01/17/21 01/18/21 01/19/21 23:59 23:59 23:59 Intake Total 3403.47 / 3410.52 1528.27 / 1530.62 195.20 / 195.20 Output Total 451 / 451 1150 / 1150 200 / 200 Balance 2952.47 / 2959.52 378.27 / 380.62 -4.80 / -4.80 Medical Nutrition Assessment Dietitian: Nutrition Therapy Diagnosis Start: 01/17/21 09:17 Freq: Status: Active Protocol: Document 01/18/21 09:22 [facility] (Rec: 01/18/21 09:22 [facility] [id number]) Nutrition Malnutrition Evidence of Malnutrition Exists No Intake Problem Inadequate Oral Intake Etiology related to issues w/ constipation Signs/Symptoms as evidenced by last BM 01/11 and pt c/o feeling full when eating only small amounts. Status Active Problem Clinical Problem Biting/Chewing Difficulty Etiology related to edentulous Signs/Symptoms as evidenced by pt requesting for mech soft diet consistency for ease of eating Status Active Problem Recommendation Dietitian Recommendations/Changes Will continue Cardiac diet - but will make mech soft consistency per pt request Will continue to provide ensure enlive 4x/day with medpass for increased nutrition if consumed. Lab / Micro Data Result Diagrams: 01/19/21 04:25 01/19/21 04:25 Labs: Laboratory Results - last 24 hr 01/19/21 04:25: WBC 8.2, RBC 4.08 L, Hgb 12.1, Hct 37.7, MCV 92.4, MCH 29.7, MC HC 32.1, RDW Std Deviation 46.6 H, RDW Coeff of Jordin 13.7, Plt Count 311, MPV 9.1, Immature Gran % (Auto) 0.400, Neut % (Auto) 54.5, Lymph % (Auto) 30.7, [place] % (Auto) 9.0, Eos % (Auto) 4.5, Baso % (Auto) 0.9, Absolute Neuts (auto) 4.5, Absolute Lymphs (auto) 2.52, Nucleated RBC % 0 01/19/21 04:25: Sodium 137, Potassium 3.9, Chloride 101, Carbon Dioxide 30.0, Anion Gap 6, BUN 7, Creatinine 0.41 L, Estim Creat Clear Calc 46.43, Est GFR (MDRD) Af Amer 195, Est GFR (MDRD) Non-Af 161, BUN/Creatinine Ratio 16.9, Glucose 162 H, Calcium 8.0 L Micro: Microbiology 01/17/21 06:37 Blood Culture (Wb) - Left Foot Blood Culture - Preliminary No growth in 48 hours. 01/17/21 06:22 Blood Culture (Wb) - Right Foot Blood Culture - Preliminary No growth in 48 hours. 01/17/21 04:45 Urine, Clean Catch Urine Culture - Preliminary Alpha hemolytic organism Mixed Gram Positive Organisms Physical Exam Narrative Seen and examined. lunchroom monitor shows sinus rhythm with PVCs. On Levophed drip Physical exam General: Awake, alert oriented x3. HEENT: Atraumatic, PERRLA, EOMI, Normocephalic Oral: No Gingival or Mucosal Lesions/ Ulcerations Neck: Supple, No JVD, Negative Carotid Bruits Lungs: Air entry diminished in bilateral lung bases. No crepitation/rhonchi Cardiovascular: Sinus rhythm. Normal S1, Normal S2, grade 2/6 LLSB systolic murmur Abdomen: Bowel Sounds Present, Soft, Non-Distended, mild probably muscular abdominal wall tenderness on the left side. : No renal angle tenderness. No suprapubic tenderness. Extremities: No edema, Capillary Refill Less than 3 Seconds Skin: No rashes, No breakdown Musculoskeletal: ROM restricted. Weakness of lower extremity muscles. No Tenderness to Palpation of Joints or Extremities Neurological: Involuntary movement of head and neck. Cranial nerves II-XII grossly intact, Deep Tendon Reflexes 2+/4 Psych/Mental Status: Anxious. Assessment & Plan Assessment/Plan (1) Acute non-ST elevation myocardial infarction (NSTEMI): PLAN: This 70-year-old female being admitted for abdominal and chest pain found to have non-STEMI 1. Non-STEMI complicated with hypotension probably cardiogenic/undifferentiated shock: MAURO risk score is high 5 points. The patient was taken to [facility] and was found to have a EF 35 to 40% consistent with Takotsubo cardiomyopathy. No significant or MR. After that she will admitted in ICU. Patient is on aspirin. Heart rate and blood pressure are in normal range. After heart cath, patient will be on Brilinta, metoprolol and high intensity statin. LIDIA/ARB in meter permitting blood pressure. 01/17: BP was consistently low despite fluid boluses started on norepinephrine drip. Patient last echo shows EF 60% with mild renal restlessness and, mild TR. 2D echo is ordered. PICC line is ordered. Lactic acid 1.1. Procalcitonin, TSH, magnesium and phosphorus are normal. 01/18: Patient had midline in right arm. Patient is off Levophed since 4 AM. Blood pressure on lower side 107/71. Second 81/48. Monitor and if needed will restart Levophed drip 01/19: Patient is back on Levophed drip. 2. Abdominal pain and acute on chronic constipation CT obtained done last week demonstrated no acute infiltrative process or evidence of bowel obstruction. Patient on stool regimen including Dulcolax suppository 01/18: Patient did not had success with Dulcolax suppository, enema and oral regimen. Dulcolax oral ordered. Soapsuds enema. CT abdomen showed rectocele/pelvic floor instability. 01/19: Mild abdominal tenderness probably abdominal wall. I think patient might have neurogenic/musculoskeletal pain. Magnesium citrate not ordered yesterday due to low BP. 3 chronic hyponatremia probably related to medication cocci Cardizem: Patient was discharged on sodium 134 and admitting sodium 129. 01/17: Sodium 135 01/19: Sodium 137. Electrolytes in normal range. 4 seizure disorder Continue oxcarbazepine. 5 involuntary/extrapyramidal movement disorder 01/18: Benztropine, Myrbetriq are held. 6 COPD: Patient not on exacerbation VT prophylaxis: Lovenox 40 mg subcu daily. DVT prophylaxis Other multiple problem includes physical debility, restless leg syndrome, sleep apnea, chronic spinal stenosis, anxiety and depression: Living will/advanced directive/end of life care: Patient does not have living will or advanced directive. Her son present in the room is power of contracts attorney of health. After discussion of benefits/risks procedures involved with full code, DNR CC arrest and DNR CC, the patient and her son agreed for DNR-CC Arrest with no intubation Patient and her son does not want artificial life support including intubation, ventilator and/chest compression, DC shock Charges/Coding Visit Charges Inpatient E&M: 62029 Subs Hosp L3
[2021-01-19] MEDS: oxyCODONE 5 MG Tablet PO ×2 (09:49→15:13)
[2021-01-19] MEDS: Phenobarbital 32.4 MG Tablet PO ×2 (09:49→20:23)
[2021-01-19] MEDS: Potassium Chloride Oral Tablet 20 MEQ PO (09:50)
[2021-01-19] MEDS: Benztropine 2 MG Tablet PO ×2 (09:51→20:08)
[2021-01-19] MEDS: Midodrine HCl 5 MG Tablet 10 MG PO ×2 (09:51→12:15)
[2021-01-19] MEDS: Polyethylene Glycol 3350 17 GM PACKET PO (09:53)
[2021-01-19] MEDS: DULoxetine Hcl 20 MG Capsule PO (09:53)
[2021-01-19] MEDS: Enoxaparin 40 MG/0.4 ML Syringe SC (09:53)
[2021-01-19] MEDS: Psyllium 1 PACKET PO (09:53)
[2021-01-19] MEDS: Pantoprazole Sodium 20 MG Tablet PO (09:54)
[2021-01-19] MEDS: Senna/Docusate Sodium 1 Tablet 2 TABLET PO ×2 (09:54→20:07)
[2021-01-19] MEDS: Ferrous Sulfate 325 MG Tablet PO (09:55)
[2021-01-19] MEDS: OXcarbazepine 600 MG Tablet PO ×2 (09:55→20:07)
[2021-01-19] MEDS: Multivitamins,Therapeutic Tablet 1 TABLET PO (09:56)
[2021-01-19] MEDS: Aspirin E.C. 81 MG Tablet PO (09:56)
[2021-01-19] MEDS: BRIMONIDINE 0.15% 5 ML Bottle 1 DRP OPHTHALMIC ×2 (10:00→20:11)
--- NOTE | 2021-01-19 10:00 | EKG12_ITS ---
Test Reason : AM EKG Blood Pressure : / mmHG Vent. Rate : 084 BPM Atrial Rate : 084 BPM P-R Int : 164 ms QRS Dur : 086 ms QT Int : 394 ms P-R-T Axes : 058 000 -18 degrees QTc Int : 465 ms Normal sinus rhythm T wave abnormality, consider anterolateral ischemia T wave abnormality, consider inferior ischemia Abnormal ECG Confirmed by JAMES LEACH, LUZ ([id number]), editorial assistant WESLY CASTAÑEDA ([id number]) on 01/23/2021 9:18:40 AM Referred By: LINDSAY Confirmed By:LUZ RAMIREZ MD
[2021-01-19] MEDS: Bisacodyl 10 MG Suppository RC (10:01)
--- NOTE | 2021-01-19 10:38 | CASEMGMT ---
Addendum entered by Eileen Wheeler 01/19/21 15:34: Telephone call to Kathy DALAL. Kathy updated on patient admission. Original Note: Social Work Consult: Placement/discharge planning Referral source: RN YOSHI Met with patient in room. Introduced self and social sciences instructor role. Patient is agreeable to speak with this social sciences instructor. Patient with recent skilled stay [facility]. Patient denies plan to return to the [facility] and plans to return to home. PT/OT evaluations are pending. Medical team is concerned about patient returning to home, this social sciences instructor educated patient on medical team concerns. Patient voiced understanding. Living Arrangements: Home alone, apartment. No steps to enter DME: [employer], [employer], [employer], [employer]. LNOK: Yaakov Landaverde and Samson ORELLANA. HCPOA: Yaakov June. PCP: Dr. Veliz Community Resources: [employer]. used car make ready worker is Beata Chen. Patient has aides 5 days a week for 4 hours a day. Transportation: [employer]. Pharmacy: [facility]. Meals: TV dinners. Will continue to follow. Irvin LEWIS, CRISTIANO
--- NOTE | 2021-01-19 12:26 | PCM.PN.CARD ---
Subjective Subjective The patient was evaluated earlier this day. She appears to be resting comfortably. Objective Data Vital Signs: Vital Signs Temp Pulse Resp BP Pulse Ox 98.7 F 100 14 144/92 H 100 01/19/21 08:00 01/19/21 11:53 01/19/21 11:00 01/19/21 11:00 01/19/21 11:00 Oxygen Flow Rate (L/min) 2 Oxygen Delivery Method Nasal Cannula Weight: 180 lb 15.992 oz Body Mass Index (BMI) 29.5 Intake & Output: Intake and Output for Last 24 Hours 01/17/21 01/18/21 01/19/21 23:59 23:59 23:59 Intake Total 3403.47 / 3410.52 1528.27 / 1530.62 675.20 / 675.20 Output Total 451 / 451 1150 / 1150 450 / 450 Balance 2952.47 / 2959.52 378.27 / 380.62 225.20 / 225.20 Lab / Micro Data Result Diagrams: 01/19/21 04:25 01/19/21 04:25 Labs: Laboratory Results - last 24 hr 01/19/21 04:25: WBC 8.2, RBC 4.08 L, Hgb 12.1, Hct 37.7, MCV 92.4, MCH 29.7, MCHC 32.1, RDW Std Deviation 46.6 H, RDW Coeff of Jordin 13.7, Plt Count 311, MPV 9.1, Immature Gran % (Auto) 0.400, Neut % (Auto) 54.5, Lymph % (Auto) 30.7, [place] % (Auto) 9.0, Eos % (Auto) 4.5, Baso % (Auto) 0.9, Absolute Neuts (auto) 4.5, Absolute Lymphs (auto) 2.52, Nucleated RBC % 0 01/19/21 04:25: Sodium 137, Potassium 3.9, Chloride 101, Carbon Dioxide 30.0, Anion Gap 6, BUN 7, Creatinine 0.41 L, Estim Creat Clear Calc 46.43, Est GFR (MDRD) Af Amer 195, Est GFR (MDRD) Non-Af 161, BUN/Creatinine Ratio 16.9, Glucose 162 H, Calcium 8.0 L Micro: Microbiology 01/19/21 10:20 Stool Stool Occult Blood (JASWANT) - Final 01/17/21 04:45 Urine, Clean Catch Urine Culture - Final Mixed Gram Positive Organisms 01/17/21 06:37 Blood Culture (Wb) - Left Foot Blood Culture - Preliminary No growth in 48 hours. 01/17/21 06:22 Blood Culture (Wb) - Right Foot Blood Culture - Preliminary No growth in 48 hours. Cardiology Labs/Tests 01/19/21 04:25: WBC 8.2, RBC 4.08 L, Hgb 12.1, Hct 37.7, MCV 92.4, MCH 29.7, MCHC 32.1, Plt Count 311, MPV 9.1, Immature Gran % (Auto) 0.400, Neut % (Auto) 54.5, Lymph % (Auto) 30.7, [place] % (Auto) 9.0, Eos % (Auto) 4.5, Baso % (Auto) 0.9, Absolute Neuts (auto) 4.5, Nucleated RBC % 0 01/19/21 04:25: Sodium 137, Potassium 3.9, Chloride 101, Carbon Dioxide 30.0, Anion Gap 6, BUN 7, Creatinine 0.41 L, Est GFR (MDRD) Af Amer 195, Est GFR (MDRD) Non-Af 161, BUN/Creatinine Ratio 16.9, Glucose 162 H, Calcium 8.0 L Rhythm: Sinus rhythm EKG: Sinus rhythm; nonspecific T wave abnormality (less prominent than previous ECGs) Physical Exam Narrative The patient appears to be awake and alert. Const alert and oriented x3 Orientation / Consciousness: awake HEENT normocephalic, head/scalp atraumatic and hearing grossly normal bilaterally Eyes PERRL, EOMs intact bilaterally, conjunctivae normal and no scleral icterus Neck full ROM, supple and no JVD Chest inspection of chest normal Resp normal respiratory effort and clear to auscultation bilaterally Cardio regular rate, regular rhythm, S1 normal heart sound and S2 normal heart sound GI normal to inspection, nondistended, normoactive bowel sounds Extremity no pedal edema General Extremity: edema bilateral lower extremity Details: trace Skin no rashes or lesions noted Neuro oriented x3 Assessment & Plan Assessment/Plan (1) Takotsubo cardiomyopathy: PLAN: The patient has been diagnosed by Dr. 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 The initial plan was for the patient to be treated medically with agents such as beta-blockers and afterload reducing agents. Her medications have been on hold secondary to her low blood pressure. She is currently on midodrine. Her blood pressures have improved somewhat. Consideration might be given over time as to when she may attempt medical management such as beta-blockers or afterload reducing agents to assist with her cardiovascular event and LV systolic dysfunction. (2) Hypotension: QUALIFIERS: Hypotension type: unspecified hypotension type Qualified Code(s): I95.9 - Hypotension, unspecified PLAN: The etiology of the patient's hypotension appears to be somewhat unclear at this time. Again she continues in the ICU. She has received IV fluids. She did receive IV vasopressor agents. She is now receiving midodrine therapy. She'll continue to be followed with the hopes that her vital signs stabilized so that she can initiate additional cardiovascular medical therapy to assist with her acute cardiovascular event/Takotsubo syndrome. (3) Abdominal pain: QUALIFIERS: Abdominal location: lower abdomen, unspecified Qualified Code(s): R10.30 - Lower abdominal pain, unspecified PLAN: The patient has been undergoing evaluation of abdominal discomfort. She recently underwent evaluation [facility] with an abdominal/pelvic CT scan which apparently demonstrated no acute findings. She will need further evaluation care per internal medicine, the ICU staff, etc. as deemed appropriate. Addt'l Comments This note was generated using a voice recognition system and there may be incorrect words, spelling or punctuation that were not noted when reviewing the office note prior to saving.
[2021-01-19] MEDS: Albuterol 2.5 MG/3 ML VIAL.NEB. INHALATION (13:37)
[2021-01-19] MEDS: Acetaminophen 325 MG Tablet 650 MG PO (15:13)
--- NOTE | 2021-01-19 16:55 | RAD_ITS ---
STUDY: X-RAY - ABDOMEN/PELVIS REASON FOR EXAM: Female, 70 years old. Emesis, abd pain TECHNIQUE: 4 AP views COMPARISON: None. FINDINGS: Normal visualized lung bases. There is an abundance of fecal material throughout the colon. There is no demonstrated free abdominal air. The visualized liver, spleen and kidneys are grossly normal in size and morphology. Normal soft tissue structures. Degenerative bony changes noted, replaced right hip joint free of complication RAD/Abd Decub and/or Erect(Portabl IMPRESSION: No acute findings, retained stool Electronically Signed: Edison Lawrence MD at 19:42 EDT , Service support ,
--- NOTE | 2021-01-19 20:00 | NURSING ---
Patient agitated on entrance to room, patient states I am sick of this shit give me my fucking meds so I can go to sleep. Will give evening medications early, see MAR.
[2021-01-19] MEDS: Pramipexole Di-HCl 1 MG Tablet PO (20:12)
[2021-01-19] MEDS: Atorvastatin Calcium 40 MG Tablet PO (20:12)
[2021-01-19] MEDS: Mirtazapine 15 MG Tablet 7.5 MG PO (20:15)
[2021-01-20] VITALS (17 sets, daily range): BP systolic 100–152; BP diastolic 51–85; PULSE 77–100; RESP 14–20; TEMP 36.8–37.1; O2SAT 96–99
[2021-01-20 05:03] LABS: Absolute Lymphocyte Count 2.49 X10^3/uL (0.83-4.51); Absolute Neutrophil Count 3.6 X10^3/uL (2.0-7.7); Basophil# 0.05 X10^3/uL; Basophil% 0.7 % (0-1); Eosinophil# 0.27 X10^3/uL; Eosinophils% 3.7 % (0-5); Hematocrit 35.7 % (37-47); Hemoglobin 11.4 g/dL (12.0-15.0); Lymphocyte # 2.49 X10^3/ul (0.83-4.51); Lymphocyte % 34.4 % (19-41); Mean Corp Hgb Conc 31.9 g/dL (32-36); Mean Corpuscular Hgb 29.3 pg (27.0-32.0); Mean Corpuscular Volume 91.8 fL (81-99); Mean Platelet Vol. 8.8 fl (6.2-12.0); Monocyte# 0.77 X10^3/uL; Monocyte% 10.7 % (0-10); NRBC Flagged by Analyzer 0 % (0-5); Neutrophil # 3.61 X10^3/uL (2.7-7.7); Neutrophil % 49.9 % (47-70); Platelet Count 269 K/mm3 (150-450); RBC Distribution Width CV 13.5 % (11.6-14.6); RBC Distribution Width SD 45.6 fl (35.1-43.9); Red Blood Count 3.89 M/mm3 (4.2-5.4); White Blood Count 7.2 K/mm3 (4.4-11.0)
[2021-01-20] MEDS: Levothyroxine 50 MCG Tablet PO (05:04)
[2021-01-20 05:16] LABS: Anion Gap 4 (5-15); BUN 6 mg/dL (7-18); BUN/Creat Ratio 18.8 RATIO (10-20); Calcium,Total 8.1 mg/dL (8.5-10.1); Chloride 99 mmol/L (98-107); Creatinine, Serum 0.32 mg/dL (0.55-1.02); EST Glomerular Filtration Rate 217 mL/min (>60); Est Glom Filt Rate - Afr Amer 262 mL/min (>60); Estimated Creatinine Clearance 46.43 ml/min; Glucose 131 mg/dL (74-106); Potassium 4.2 mmol/L (3.5-5.1); Sodium Level 136 mmol/L (136-145)
[2021-01-20] MEDS: Albuterol 2.5 MG/3 ML VIAL.NEB. INHALATION ×2 (06:22→21:48)
[2021-01-20] MEDS: Budesonide Respules 0.5 MG/2 ML AMPUL.NEB. INHALATION ×2 (06:22→21:48)
--- NOTE | 2021-01-20 06:50 | PN.CC_ITS ---
Assessment & Plan Assessment/Plan (1) Acute non-ST elevation myocardial infarction (NSTEMI): PLAN: RECOMMENDATIONS: 1. Continue empiric antimicrobials to complete 7 days of total antibiotics 2. Wean supplemental oxygen to maintain saturations at or above 90%. 3. Encourage incentive spirometer use and mobilize patient as tolerated. 4. Okay to leave the intensive care unit from my perspective IMPRESSIONS: 1. Undifferentiated shock The exact etiology for the patient's hypotension is unclear. The patient's hypotension was fluid refractory and she was therefore started on vasopressor support, which continues to be required overnight. There does not appear to be any focal source of blood loss. Patient does have a decreased EF, but is also noted to have a positive urine culture. The patient is afebrile with only a mildly elevated white blood cell count. Unfortunately, urine appears to be contaminated. Consider completion of 7 days of total antibiotics given the concern for possible bacteremia with hypotension. 2. Non-ST segment elevation MS/Takotsubo cardiomyopathy The patient did undergo cardiac catheterization, which revealed mild nonobstructive coronary disease and an ejection fraction of 35 to 40%. Plan to continue medical management. 3. Chronic constipation/unspecified seizure disorder/essential tremor/chronic back pain/depression Complicates care, management, recovery and prognosis. Continue home medications as indicated. Unclear if medications nocturnally are adding to current situation. If patient is unresponsive to antibiotics, may need to assess removal of medications in a stepwise fashion. Subjective Subjective The patient did well overnight. Patient's nausea has significantly improved and no vomiting has been reported overnight. Patient is not currently reporting any chest pain and feels subjectively improved compared to yesterday. Patient is still requiring minimal nasal cannula oxygen to maintain saturations, but this is typically with sleep. No pressors were required overnight. Objective Data Objective Data Vital Signs: Vital Signs Temp Pulse Resp BP Pulse Ox 36.9 C 86 18 100/51 L 99 01/20/21 00:00 01/20/21 06:23 01/20/21 06:23 01/20/21 03:00 01/20/21 06:23 Oxygen Flow Rate (L/min) 2 Oxygen Delivery Method Nasal Cannula Weight: 81.3 kg Body Mass Index (BMI) 29.5 Intake & Output: Intake and Output for Last 24 Hours 01/18/21 01/19/21 01/20/21 23:59 23:59 23:59 Intake Total 1528.27 / 1530.62 946.45 / 946.45 0 / 0 Output Total 1150 / 1150 550 / 550 0 / 0 Balance 378.27 / 380.62 396.45 / 396.45 0 / 0 Medical Nutrition Assessment Dietitian: Nutrition Therapy Diagnosis Start: 01/17/21 09:17 Freq: Status: Active Protocol: Document 01/19/21 11:08 LEONARD (Rec: 01/19/21 11:08 SLA [id number]) Nutrition Malnutrition Evidence of Malnutrition Exists No Intake Problem Inadequate Oral Intake Etiology related to issues w/ constipation Signs/Symptoms as evidenced by last BM 01/11 and pt c/o feeling full when eating only small amounts; pt has orders for stooling agents . Status Active Problem Clinical Problem Biting/Chewing Difficulty Etiology related to edentulous Signs/Symptoms as evidenced by pt requesting for mech soft diet consistency for ease of eating Status Active Problem Recommendation Dietitian Recommendations/Changes Will continue Cardiac diet mech soft consistency per pt request Will continue to provide ensure enlive 4x/day with medpass for increased nutrition if consumed. Lab / Micro Data Result Diagrams: 01/20/21 05:00 01/20/21 05:00 Labs: Laboratory Results - last 24 hr 01/20/21 05:00: WBC 7.2, RBC 3.89 L, Hgb 11.4 L, Hct 35.7 L, MCV 91.8, MCH 29.3, MCHC 31.9 L, RDW Std Deviation 45.6 H, RDW Coeff of Jordin 13.5, Plt Count 269, MPV 8.8, Immature Gran % (Auto) 0.600, Neut % (Auto) 49.9, Lymph % (Auto) 34.4, [place] % (Auto) 10.7 H, Eos % (Auto) 3.7, Baso % (Auto) 0.7, Absolute Neuts (auto) 3.6, Absolute Lymphs (auto) 2.49, Nucleated RBC % 0 01/20/21 05:00: Sodium 136, Potassium 4.2, Chloride 99, Carbon Dioxide 33.0 H, Anion Gap 4 L, BUN 6 L, Creatinine 0.32 L, Estim Creat Clear Calc 46.43, Est GFR (MDRD) Af Amer 262, Est GFR (MDRD) Non-Af 217, BUN/Creatinine Ratio 18.8, Glucose 131 H, Calcium 8.1 L Micro: Microbiology 01/19/21 10:20 Stool Stool Occult Blood (JASWANT) - Final 01/17/21 04:45 Urine, Clean Catch Urine Culture - Final Mixed Gram Positive Organisms 01/17/21 06:37 Blood Culture (Wb) - Left Foot Blood Culture - Preliminary No growth in 48 hours. 01/17/21 06:22 Blood Culture (Wb) - Right Foot Blood Culture - Preliminary No growth in 48 hours. Radiography Diagnostic Testing: Radiology Impression Abdomen X-Ray 01/19/21 16:55 IMPRESSION: No acute findings, retained stool Electronically Signed: Edison Lawrence MD at 19:42 EDT , Service support , Physical Exam Const alert and no apparent distress General Appearance: cooperative and well developed HEENT normocephalic, head/scalp atraumatic and moist oral mucous membranes Eyes PERRL and EOMs intact bilaterally Neck full ROM and no lymphadenopathy Chest inspection of chest normal Resp normal respiratory effort and no use of accessory muscles Effort and Inspection: able to speak in complete sentences Auscultation: clear to auscultation bilaterally; Negative for rales, rhonchi or wheezes Percussion: Negative for dullness Cardio regular rate, regular rhythm, S1 normal heart sound, S2 normal heart sound, no murmurs, no rub and no gallops GI normal to inspection, nondistended, normoactive bowel sounds no CVA tenderness Extremity no clubbing, cyanosis or edema Skin no rashes or lesions noted Neuro CN's II-XII intact bilaterally, moves all extremities and no focal motor deficits Psych cooperative and affect normal Charges/Coding Visit Charges Inpatient E&M: 41637 Subs Hosp L3
[2021-01-20] MEDS: 0.9% Saline Lock 10 ML Syringe IV ×3 (08:29→19:27)
[2021-01-20] MEDS: oxyCODONE 5 MG Tablet PO ×3 (08:29→17:11)
[2021-01-20] MEDS: Ondansetron 4 MG/2 ML Vial IV ×2 (08:29→19:27)
[2021-01-20] MEDS: Midodrine HCl 5 MG Tablet 10 MG PO ×2 (08:37→17:12)
--- NOTE | 2021-01-20 09:08 | PN.CARD_ITS ---
Subjective Subjective The patient is awake and alert this morning. She denies any ongoing chest discomfort or difficulty breathing. Her main concern revolves around her chronic abdominal discomfort. Objective Data Vital Signs: Vital Signs Temp Pulse Resp BP Pulse Ox 98.6 F 96 14 108/66 97 01/20/21 08:44 01/20/21 08:44 01/20/21 08:44 01/20/21 08:44 01/20/21 08:44 Oxygen Flow Rate (L/min) 2 Oxygen Delivery Method Nasal Cannula Weight: 179 lb 3.773 oz Body Mass Index (BMI) 29.5 Intake & Output: Intake and Output for Last 24 Hours 01/18/21 01/19/21 01/20/21 23:59 23:59 23:59 Intake Total 1528.27 / 1530.62 946.45 / 946.45 0 / 0 Output Total 1150 / 1150 550 / 550 0 / 0 Balance 378.27 / 380.62 396.45 / 396.45 0 / 0 Lab / Micro Data Result Diagrams: 01/20/21 05:00 01/20/21 05:00 Labs: Laboratory Results - last 24 hr 01/20/21 05:00: WBC 7.2, RBC 3.89 L, Hgb 11.4 L, Hct 35.7 L, MCV 91.8, MCH 29.3, MCHC 31.9 L, RDW Std Deviation 45.6 H, RDW Coeff of Jordin 13.5, Plt Count 269, MPV 8.8, Immature Gran % (Auto) 0.600, Neut % (Auto) 49.9, Lymph % (Auto) 34.4, [place] % (Auto) 10.7 H, Eos % (Auto) 3.7, Baso % (Auto) 0.7, Absolute Neuts (auto) 3.6, Absolute Lymphs (auto) 2.49, Nucleated RBC % 0 01/20/21 05:00: Sodium 136, Potassium 4.2, Chloride 99, Carbon Dioxide 33.0 H, Anion Gap 4 L, BUN 6 L, Creatinine 0.32 L, Estim Creat Clear Calc 46.43, Est GFR (MDRD) Af Amer 262, Est GFR (MDRD) Non-Af 217, BUN/Creatinine Ratio 18.8, Glucose 131 H, Calcium 8.1 L Micro: Microbiology 01/19/21 10:20 Stool Stool Occult Blood (JASWANT) - Final 01/17/21 04:45 Urine, Clean Catch Urine Culture - Final Mixed Gram Positive Organisms 01/17/21 06:37 Blood Culture (Wb) - Left Foot Blood Culture - Preliminary No growth in 48 hours. 01/17/21 06:22 Blood Culture (Wb) - Right Foot Blood Culture - Preliminary No growth in 48 hours. Cardiology Labs/Tests 01/20/21 05:00: WBC 7.2, RBC 3.89 L, Hgb 11.4 L, Hct 35.7 L, MCV 91.8, MCH 29.3, MCHC 31.9 L, Plt Count 269, MPV 8.8, Immature Gran % (Auto) 0.600, Neut % (Auto) 49.9, Lymph % (Auto) 34.4, [place] % (Auto) 10.7 H, Eos % (Auto) 3.7, Baso % (Auto) 0.7, Absolute Neuts (auto) 3.6, Nucleated RBC % 0 01/20/21 05:00: Sodium 136, Potassium 4.2, Chloride 99, Carbon Dioxide 33.0 H, Anion Gap 4 L, BUN 6 L, Creatinine 0.32 L, Est GFR (MDRD) Af Amer 262, Est GFR (MDRD) Non-Af 217, BUN/Creatinine Ratio 18.8, Glucose 131 H, Calcium 8.1 L Rhythm: Sinus rhythm Radiography Diagnostic Testing: Radiology Impression Abdomen X-Ray 01/19/21 16:55 IMPRESSION: No acute findings, retained stool Electronically Signed: Edison Lawrence MD at 19:42 EDT , Service support , Physical Exam Narrative The patient appears to be awake and alert. Const alert and oriented x3 Orientation / Consciousness: awake HEENT normocephalic, head/scalp atraumatic and hearing grossly normal bilaterally Eyes PERRL, EOMs intact bilaterally, conjunctivae normal and no scleral icterus Neck full ROM, supple and no JVD Chest inspection of chest normal Resp normal respiratory effort and clear to auscultation bilaterally Cardio regular rate, regular rhythm, S1 normal heart sound and S2 normal heart sound GI normal to inspection, nondistended, normoactive bowel sounds Extremity no pedal edema General Extremity: edema bilateral lower extremity Details: trace Skin no rashes or lesions noted Neuro oriented x3 Assessment & Plan Assessment/Plan (1) Takotsubo cardiomyopathy: PLAN: The patient has been diagnosed by Dr. 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 The initial plan was for the patient to be treated medically with agents such as beta-blockers and afterload reducing agents. Her medications have been on hold secondary to her low blood pressure. She is currently on midodrine. Her blood pressures have improved somewhat. Depending upon her clinical course and her vital signs hopefully she will be able to initiate low-dose beta-antonio therapy/afterload reducing therapy to assist in recovery of her Takotsubo syndrome. (2) Hypotension: QUALIFIERS: Hypotension type: unspecified hypotension type Qualified Code(s): I95.9 - Hypotension, unspecified PLAN: The patient's blood pressure appears to have improved after receiving IV fluids and now being on midodrine. However, it is still somewhat challenging to initiate cardiovascular medicine that would lower her blood pressure. Hopefully over time her blood pressure will stabilize or she can initiate such medication to assist in recovery of her cardiovascular event. (3) Abdominal pain: QUALIFIERS: Abdominal location: lower abdomen, unspecified Qualified Code(s): R10.30 - Lower abdominal pain, unspecified PLAN: The patient has been undergoing evaluation of abdominal discomfort. She recently underwent evaluation [facility] with an abdominal/pelvic CT scan which apparently demonstrated no acute findings. She will need further evaluation care per internal medicine, the ICU staff, etc. as deemed appropriate. Addt'l Comments This note was generated using a voice recognition system and there may be incorrect words, spelling or punctuation that were not noted when reviewing the office note prior to saving.
--- NOTE | 2021-01-20 10:22 | NURSING ---
report called to maurice Brower
--- NOTE | 2021-01-20 10:47 | CASEMGMT ---
ERIC BELLE NOTE: Palliative screening done d/t [facility]. Pt qualifies for a Palliative referral at this time. Dr Harry aware and states ok for Palliative c/s at this time. Order placed. Palliative updated at this time. Face Sheet faxed to Palliative at this time. Mariam LARSON RN CM
[2021-01-20] MEDS: Bisacodyl 10 MG Suppository RC (10:53)
--- NOTE | 2021-01-20 11:28 | PN.HOSP_ITS ---
Subjective Subjective The patient blood pressure is stable off Levophed for 24 hours.. Currently 143/75. Mild abdominal pain and nausea in the morning. No fever. Objective Data Objective Data Vital Signs: Vital Signs Temp Pulse Resp BP Pulse Ox 98.7 F 98 15 143/85 H 96 01/20/21 09:44 01/20/21 09:44 01/20/21 09:44 01/20/21 09:44 01/20/21 09:44 Oxygen Flow Rate (L/min) 1 Oxygen Delivery Method Nasal Cannula Weight: 179 lb 3.773 oz Body Mass Index (BMI) 29.5 Intake & Output: Intake and Output for Last 24 Hours 01/18/21 01/19/21 01/20/21 23:59 23:59 23:59 Intake Total 1528.27 / 1530.62 946.45 / 946.45 0 / 0 Output Total 1150 / 1150 550 / 550 0 / 0 Balance 378.27 / 380.62 396.45 / 396.45 0 / 0 Medical Nutrition Assessment Dietitian: Nutrition Therapy Diagnosis Start: 01/17/21 09:17 Freq: Status: Active Protocol: Document 01/19/21 11:08 LEONARD (Rec: 01/19/21 11:08 SLA [id number]) Nutrition Malnutrition Evidence of Malnutrition Exists No Intake Problem Inadequate Oral Intake Etiology related to issues w/ constipation Signs/Symptoms as evidenced by last BM 01/11 and pt c/o feeling full when eating only small amounts; pt has orders for stooling agents . Status Active Problem Clinical Problem Biting/Chewing Difficulty Etiology related to edentulous Signs/Symptoms as evidenced by pt requesting for mech soft diet consistency for ease of eating Status Active Problem Recommendation Dietitian Recommendations/Changes Will continue Cardiac diet mech soft consistency per pt request Will continue to provide ensure enlive 4x/day with medpass for increased nutrition if consumed. Lab / Micro Data Result Diagrams: 01/20/21 05:00 01/20/21 05:00 Labs: Laboratory Results - last 24 hr 01/20/21 05:00: WBC 7.2, RBC 3.89 L, Hgb 11.4 L, Hct 35.7 L, MCV 91.8, MCH 29.3, MCHC 31.9 L, RDW Std Deviation 45.6 H, RDW Coeff of Jordin 13.5, Plt Count 269, MPV 8.8, Immature Gran % (Auto) 0.600, Neut % (Auto) 49.9, Lymph % (Auto) 34.4, [place] % (Auto) 10.7 H, Eos % (Auto) 3.7, Baso % (Auto) 0.7, Absolute Neuts (auto) 3.6, Absolute Lymphs (auto) 2.49, Nucleated RBC % 0 01/20/21 05:00: Sodium 136, Potassium 4.2, Chloride 99, Carbon Dioxide 33.0 H, Anion Gap 4 L, BUN 6 L, Creatinine 0.32 L, Estim Creat Clear Calc 46.43, Est GFR (MDRD) Af Amer 262, Est GFR (MDRD) Non-Af 217, BUN/Creatinine Ratio 18.8, Glucose 131 H, Calcium 8.1 L Micro: Microbiology 01/19/21 10:20 Stool Stool Occult Blood (JASWANT) - Final 01/17/21 04:45 Urine, Clean Catch Urine Culture - Final Mixed Gram Positive Organisms 01/17/21 06:37 Blood Culture (Wb) - Left Foot Blood Culture - Preliminary No growth in 48 hours. 01/17/21 06:22 Blood Culture (Wb) - Right Foot Blood Culture - Preliminary No growth in 48 hours. Radiography Diagnostic Testing: Radiology Impression Abdomen X-Ray 01/19/21 16:55 IMPRESSION: No acute findings, retained stool Electronically Signed: Edison Lawrence MD at 19:42 EDT , Service support , Physical Exam Narrative Seen and examined. equipment monitor phototypesetting shows sinus rhythm with PVCs. On Levophed drip Physical exam General: Awake, alert oriented x3. HEENT: Atraumatic, PERRLA, EOMI, Normocephalic Oral: No Gingival or Mucosal Lesions/ Ulcerations Neck: Supple, No JVD, Negative Carotid Bruits Lungs: Air entry diminished in bilateral lung bases. No crepitation/rhonchi Cardiovascular: Sinus rhythm. Normal S1, Normal S2, grade 2/6 LLSB systolic murmur Abdomen: Bowel Sounds Present, Soft, Non-Distended, mild nonspecific tenderness in left side of her abdomen. : No renal angle tenderness. No suprapubic tenderness. Extremities: No edema, Capillary Refill Less than 3 Seconds Skin: No rashes, No breakdown Musculoskeletal: ROM restricted. Weakness of lower extremity muscles. No Tenderness to Palpation of Joints or Extremities Neurological: Involuntary movement of head and neck. Cranial nerves II-XII grossly intact, Deep Tendon Reflexes 2+/4 Psych/Mental Status: Normal affect. Assessment & Plan Assessment/Plan (1) Acute non-ST elevation myocardial infarction (NSTEMI): PLAN: This 70-year-old female being admitted for abdominal and chest pain found to have non-STEMI 1. Non-STEMI complicated with hypotension probably cardiogenic/undifferentiated shock: MAURO risk score is high 5 points. The patient was taken to [facility] and was found to have a EF 35 to 40% consistent with Takotsubo cardiomyopathy. No significant or MR. After that she will admitted in ICU. Patient is on aspirin. Heart rate and blood pressure are in normal range. After heart cath, patient will be on Brilinta, metoprolol and high intensity statin. LIDIA/ARB in meter permitting blood pressure. 01/17: BP was consistently low despite fluid boluses started on norepinephrine drip. Patient last echo shows EF 60% with mild renal restlessness and, mild TR. 2D echo is ordered. PICC line is ordered. Lactic acid 1.1. Procalcitonin, TSH, magnesium and phosphorus are normal. 01/18: Patient had midline in right arm. Patient is off Levophed since 4 AM. Blood pressure on lower side 107/71. Second 81/48. Monitor and if needed will restart Levophed drip 01/19: Patient is back on Levophed drip. Levophed drip was discontinued yesterday 01/20: Patient blood pressure is stable for about 24 hours of Levophed drip. Patient on midodrine. EF 35% with mild eccentric MR, TR. Patient transferred to PCU 2. Abdominal pain and acute on chronic constipation CT obtained done last week demonstrated no acute infiltrative process or evidence of bowel obstruction. Patient on stool regimen including Dulcolax suppository 01/18: Patient did not had success with Dulcolax suppository, enema and oral regimen. Dulcolax oral ordered. Soapsuds enema. CT abdomen showed rectocele/pelvic floor instability. 01/19: Mild abdominal tenderness probably abdominal wall. I think patient might have neurogenic/musculoskeletal pain. Magnesium citrate not ordered yesterday due to low BP. 01/20: Symptomatic management 3 chronic hyponatremia probably related to medication cocci Cardizem: Patient was discharged on sodium 134 and admitting sodium 129. 01/17: Sodium 135 01/19: Sodium 137. Electrolytes in normal range. 4 seizure disorder Continue oxcarbazepine. 5 involuntary/extrapyramidal movement disorder 01/18: Benztropine, Myrbetriq are held. 6 COPD: Patient not on exacerbation VT prophylaxis: Lovenox 40 mg subcu daily. DVT prophylaxis Other multiple problem includes physical debility, restless leg syndrome, sleep apnea, chronic spinal stenosis, anxiety and depression: Living will/advanced directive/end of life care: Patient does not have living will or advanced directive. Her son present in the room is power of estate planning attorney of health. After discussion of benefits/risks procedures involved with full code, DNR CC arrest and DNR CC, the patient and her son agreed for DNR-CC Arrest with no intubation Patient and her son does not want artificial life support including intubation, ventilator and/chest compression, DC shock Charges/Coding Visit Charges Inpatient E&M: 17776 Subs Hosp L3
--- NOTE | 2021-01-20 13:13 | CASEMGMT ---
Social Work Per therapy recommendation patient is able to return to home. This social media community manager met with patient in room and updated on above. Patient continues to be agreeable to plan to discharge to home. Patient plans to discharge to home alone. Irvin LEWIS, NORMANS
[2021-01-20] MEDS: Metoclopramide 10 MG/2 ML Vial 5 MG IV ×2 (13:14→21:33)
--- NOTE | 2021-01-20 13:59 | CASEMGMT ---
Social Work Telephone call from Jyothi Soler, . Jyothi is currently the [employer] assurance senior manager insurance covering for patient. This social science analyst updated Jyothi on patient status. Jyothi ask to be contacted when patient discharges. Jyothi . Will continue to follow. Irvin LEWIS, CRISTIANO
--- NOTE | 2021-01-20 16:43 | CON.PCM.PA_ITS ---
Assessment & Plan Assessment/Plan (1) Chronic constipation: (2) Abdominal pain: QUALIFIERS: Abdominal location: lower abdomen, unspecified Qualified Code(s): R10.30 - Lower abdominal pain, unspecified (3) Acute non-ST elevation myocardial infarction (NSTEMI): (4) Chest pain: QUALIFIERS: Chest pain type: unspecified Qualified Code(s): R07.9 - Chest pain, unspecified (5) Takotsubo cardiomyopathy: (6) Tobacco use: (7) Chronic hypoxemic respiratory failure: (8) Hypothyroidism: (9) Suicide attempt: (10) Stress bladder incontinence, female: (11) Rectal prolapse: (12) Essential tremor: (13) Extrapyramidal disorder: (14) Polyneuropathy: (15) Vitamin D deficiency: (16) Epilepsy: QUALIFIERS: Epilepsy type: other generalized Intractability: not intractable Status epilepticus: without status epilepticus Qualified Code(s): G40.409 - Other generalized epilepsy and epileptic syndromes, not intractable, without status epilepticus (17) Spinal stenosis of lumbar region: QUALIFIERS: Neurogenic claudication status: unspecified Qualified Code(s): M48.061 - Spinal stenosis, lumbar region without neurogenic claudication (18) Restless leg syndrome: (19) Degenerative disc disease, lumbar: (20) Obstructive sleep apnea: (21) COPD (chronic obstructive pulmonary disease): (22) Hypertension: (23) Seizure disorder: (24) Pain, chronic: QUALIFIERS: Chronic pain type: chronic pain syndrome Qualified Code(s): G89.4 - Chronic pain syndrome PLAN: 70-year-old female with chronic constipation, presented with abdominal pain on 2 occasions, found to have fecal matter and possible pelvic floor instability/rectocele. Seen today for palliative referral regarding chronic shortness of breath in the setting of COPD and chronic hypoxemic respiratory failure. She wears supplemental oxygen at night mostly. 1. COPD/respiratory failure: Appears to be controlled at this time, she is requiring 1 to 2 L during the day and wears 2 L at night. No current shortness of breath, no medications or interventions recommended at this time. 2. Abdominal pain: Unclear etiology, seen by surgery, no intervention recommended. Possibly mesenteric ischemia? Would recommend increasing her stool softeners to control her constipation more effectively. Unclear what she is on at home but it appears to be methadone and Tylenol. 3. Chronic back pain: Again, follows with Dr. Andujar. Defer management to pain management. 4. CHUY (untreated)/HTN/seizure disorder/RLS/epilepsy/neuropathy/essential tremor/hypothyroidism on/rectal prolapse/history of suicide attempt/acute non- STEMI/Takotsubo cardiomyopathy/ongoing tobacco abuse: Complicates overall care and management. She should follow-up with her specialists and regularly with her primary care. Recommended smoking cessation, patient is not interested. Thank you for the opportunity to participate in this patient's care, please do not hesitate to contact [facility] with any further questions or concerns. Palliative direct line is [phone]. We will follow up after discharge and will discuss palliative services further at that time. She is agreeable to set up a time with liaison to obtain more information. Greater than 50% of F2F visit dedicated to education and counseling of palliative care services, medications, comorbid conditions and potential assistance with management, and plan of care moving forward. Start time: 1705 End time: 1756 HPI Consult Data Date of Consult: 01/20/21 HPI Narrative HPI Narrative: XANDER RAMIREZ, is a 70 F who presents to [facility] 01/16/2021 with complaints of a several day history of epigastric abdominal pain. She was apparently also admitted 01/10-01/11 for similar complaints, CT of the abdomen at that showed findings consistent with pelvic floor instability/rectocele. Also diverticulosis and diffuse degenerative changes of the lumbar spine. There is no acute inflammatory process or bowel obstruction to explain her symptoms. She had EKG changes this visit so was admitted for further evaluation and management in the ICU. Patient diagnosed with acute non-ST elevation myocardial infarction and unclear etiology of hypertension. She required vasopressor support. She is required supplemental oxygen but that has been weaned to minimal amount. She did have an abdominal x-ray 01/19 that showed only stool. She has reportedly been off Levophed for 24 hours. Blood pressure has improved. She had some mild abdominal pain with nausea at this morning. She does have chronic constipation. She was given Dulcolax suppository, enema, and scheduled oral regimen with no success. Patient also went underwent a cardiac catheterization which showed an EF of 35 to 40%, otherwise findings consistent with Takotsubo cardiomyopathy. Patient was seen by surgery today who suggested possible chronic mesenteric ischemia given her CT results of significant aortic calcifications. There were no surgical options offered. Did mention hiatal hernia, for which dietary recommendations of small meals and sitting upright, as well as Carafate was advised. Patient has also seen Dr. Dunlap for similar complaints. Probable chronic constipation. Seen today for palliative care consultation for symptom management of shortness of breath secondary to COPD, she is oxygen dependent. She does have chronic pain to the abdomen. Patient is currently residing at the [facility]. She currently has passport with an aide 5 days a week for 4 hours/day. She uses [email or web address] for transportation and her pharmacy is through [facility]. Apparently she has told social work that she will be returning home upon discharge and not going back to the [place]. There has been concerns from the medical team about patient returning home alone. She lives in apartment with no steps to enter. DME in the home include a Rollator, nebulizer, grab bars, and a med alert. She does have a son Yaakov and son-in-law Samson Sin who are [facility]. Patient denies any current abdominal pain. States she has chronic back pain and follows with Dr. Andujar. Patient takes acetaminophen 650 mg every 6 hours PRN and methadone 10 mg 3 times a day. It appears that here at the hospital patient is taking oxycodone 5 mg every 4 hours as needed, I do not see methadone ordered. She does have chronic constipation issues and may need an increase in her stool softeners. We did discuss chronic disease management through palliative care and plan of care moving forward. She is open to palliative services, we will have a liaison contact her and schedule a time to go out to her home to further review services, patient can sign on at that time if she is still in agreement. [facility] Medical History Acute gastritis Anxiety COPD (chronic obstructive pulmonary disease) Degenerative disc disease, lumbar Depression Diverticulosis DVT (deep venous thrombosis) Gastritis Hypertension Hypotension Insomnia Obstructive sleep apnea On home oxygen therapy Pain, chronic Physical debility Restless leg syndrome Seizure disorder Sleep apnea Smoker Spinal stenosis Takotsubo cardiomyopathy Home Medications aspirin 81 mg PO 1200 01/07/19 [History Last Taken 01/15/21] duloxetine 20 mg PO DAILY 01/07/19 [History Last Taken 01/15/21] levothyroxine 50 mcg PO DAILY 01/07/19 [History Last Taken 11/21/20] potassium chloride 20 meq PO BID 01/07/19 [History Last Taken 01/15/21] mirtazapine 7.5 mg tablet 7.5 mg PO QHS tablet 02/21/19 [History Last Taken 01/15/21] nicotine 1 patch TOPICAL DAILY 08/08/19 [History Last Taken 01/14/21] ropinirole 2 mg PO QHS 08/08/19 [History Last Taken 01/15/21] acetaminophen 650 mg PO Q6H PRN PRN tablet 08/11/19 [Rx Last Taken Unknown] albuterol sulfate 90 mcg/actuation aerosol inhaler 1 inh INHALATION BID PRN PRN 05/13/20 [History Last Taken 11/21/20] calcium carbonate 500 mg calcium (1,250 mg) tablet 500 mg PO BID 05/13/20 [History Last Taken 01/15/21] fluticasone furoate 100 mcg-vilanterol 25 mcg/dose inhalation powder 2 puff INHALATION DAILY 05/13/20 [History Last Taken 11/22/20] mirabegron 25 mg tablet,extended release 24 hr 25 mg PO BID tab 05/13/20 [History Last Taken 01/15/21] omeprazole 20 mg capsule,delayed release 20 mg PO DAILY cap 05/13/20 [History Last Taken 01/15/21] sennosides 8.6 mg-docusate sodium 50 mg tablet 2 tab PO BID 05/13/20 [History Last Taken 01/15/21] brimonidine 0.15 % eye drops 1 drp OPHTHALMIC BID 07/09/20 [History Last Taken 01/15/21] benztropine 2 mg tablet 2 mg PO BID #60 tab 10/13/20 [Rx Last Taken 01/15/21] oxcarbazepine 600 mg tablet 600 mg PO BID #60 tab 10/13/20 [Rx Last Taken 01/15/21] phenobarbital 32.4 mg tablet 32.4 mg PO BID #60 tab 10/13/20 [Rx Last Taken 01/15/21] cholecalciferol (vitamin D3) 1,250 mcg PO WE 10/20/20 [History Last Taken 01/14/21] multivitamin 1 tab PO 1200 10/20/20 [History Last Taken 01/15/21] temazepam 30 mg PO QHS PRN 10/20/20 [History Last Taken 01/15/21] methadone 10 mg PO TID 5 Days #15 tab 10/25/20 [Rx Last Taken 01/15/21] ferrous sulfate [FeroSul] 325 mg PO 1200,1700 #60 tab 12/03/20 [Rx Last Taken 01/15/21] ondansetron 4 mg PO Q6H PRN 01/10/21 [History Last Taken Unknown] bisacodyl 10 mg [place] DAILY PRN 01/16/21 [History Last Taken 01/10/21] loperamide [Imodium A-D] 2 mg PO Q6H PRN 01/16/21 [History Last Taken Unknown] magnesium hydroxide [Milk of Magnesia] 400 mg PO DAILY PRN 01/16/21 [History Las t Taken 01/14/21] mineral oil 118 ml [place] DAILY PRN 01/16/21 [History Last Taken Unknown] sulfamethoxazole-trimethoprim [Bactrim DS] 1 tab PO BID 01/16/21 [History Last Taken 01/16/21] Allergy/AdvReac Type Severity Reaction Status Date / Time codeine Allergy Mild HIVES Verified 01/16/21 13:14 Penicillins Allergy Anaphylaxis Verified 01/16/21 13:14 Family History Mother Diabetes Heart disease Hypertension CAD (coronary artery disease) CVA (cerebral vascular accident) Thyroid disorder Father Colon cancer Surgical History History of bilateral carpal tunnel release History of bilateral cataract extraction History of blepharoplasty History of cystoscopy History of esophagogastroduodenoscopy (EGD) (~03/07/19) History of left heart catheterization (01/16/21) History of right hip replacement History of right salpingo-oophorectomy S/P appendectomy S/P laparoscopic cholecystectomy Status post ORIF of fracture of ankle Social History Smoking Status: Former smoker Tobacco: How many years used: 50 alcohol intake: never substance use type: does not use ROS ROS Narrative Review of systems otherwise negative from a constitutional, HEENT, respiratory, cardiovascular, GI, genitourinary, musculoskeletal, skin, neurologic, psychia tric and hematologic system unless stated above. Physical Exam Const alert, oriented x3 and no apparent distress HEENT normocephalic and head/scalp atraumatic Teeth and Gingiva: edentulous Lymph Lymphatic: no lymphadenopathy noted Resp normal respiratory effort Effort and Inspection: able to speak in complete sentences and symmetric chest movement Auscultation: clear to auscultation bilaterally and diminished lung sounds Cardio regular rate, regular rhythm, S1 normal heart sound and S2 normal heart sound GI normal to inspection, nondistended, normoactive bowel sounds GI Narrative: obese Extremity no clubbing, cyanosis or edema Skin no wounds Neuro CN's II-XII intact bilaterally and no focal motor deficits Neuro Narrative: Appears to have some tardive dyskinesia, some smacking of lips Psych denies hallucinations Attitude: bizarre Activity / Motor Behavior: appropriate eye contact, psychomotor agitation and fidgetting Memory / Cognition: memory grossly intact
--- NOTE | 2021-01-20 16:54 | CON.PCM.SX_ITS ---
HPI Consult Data Date of Consult: 01/20/21 HPI Narrative HPI Narrative: XANDER RAMIREZ, is a 70 F who presents with complaint of lower abdominal pain. This has been ongoing, as patient has been seen in the past by Dr. Dunlap for the same. Patient feels that it is related to her constipation, she states that she last had a bowel movement about 3-4 days ago, however, the nurse told me that she was disimpacted yesterday. Patient notes problems with chronic constipation. [facility] Medical History (Updated 01/19/21 @ 08:31 by Shannon Hinds) Acute gastritis Anxiety COPD (chronic obstructive pulmonary disease) Degenerative disc disease, lumbar Depression Diverticulosis DVT (deep venous thrombosis) Gastritis Hypertension Hypotension Insomnia Obstructive sleep apnea On home oxygen therapy Pain, chronic Physical debility Restless leg syndrome Seizure disorder Sleep apnea Smoker Spinal stenosis Takotsubo cardiomyopathy Home Medications aspirin 81 mg PO 1200 01/07/19 [History Last Taken 01/15/21] duloxetine 20 mg PO DAILY 01/07/19 [History Last Taken 01/15/21] levothyroxine 50 mcg PO DAILY 01/07/19 [History Last Taken 11/21/20] potassium chloride 20 meq PO BID 01/07/19 [History Last Taken 01/15/21] mirtazapine 7.5 mg tablet 7.5 mg PO QHS tablet 02/21/19 [History Last Taken 01/15/21] nicotine 1 patch TOPICAL DAILY 08/08/19 [History Last Taken 01/14/21] ropinirole 2 mg PO QHS 08/08/19 [History Last Taken 01/15/21] acetaminophen 650 mg PO Q6H PRN PRN tablet 08/11/19 [Rx Last Taken Unknown] albuterol sulfate 90 mcg/actuation aerosol inhaler 1 inh INHALATION BID PRN PRN 05/13/20 [History Last Taken 11/21/20] calcium carbonate 500 mg calcium (1,250 mg) tablet 500 mg PO BID 05/13/20 [History Last Taken 01/15/21] fluticasone furoate 100 mcg-vilanterol 25 mcg/dose inhalation powder 2 puff INHALATION DAILY 05/13/20 [History Last Taken 11/22/20] mirabegron 25 mg tablet,extended release 24 hr 25 mg PO BID tab 05/13/20 [History Last Taken 01/15/21] omeprazole 20 mg capsule,delayed release 20 mg PO DAILY cap 05/13/20 [History Last Taken 01/15/21] sennosides 8.6 mg-docusate sodium 50 mg tablet 2 tab PO BID 05/13/20 [History Last Taken 01/15/21] brimonidine 0.15 % eye drops 1 drp OPHTHALMIC BID 07/09/20 [History Last Taken 01/15/21] benztropine 2 mg tablet 2 mg PO BID #60 tab 10/13/20 [Rx Last Taken 01/15/21] oxcarbazepine 600 mg tablet 600 mg PO BID #60 tab 10/13/20 [Rx Last Taken 01/15/21] phenobarbital 32.4 mg tablet 32.4 mg PO BID #60 tab 10/13/20 [Rx Last Taken 01/15/21] cholecalciferol (vitamin D3) 1,250 mcg PO WE 10/20/20 [History Last Taken 01/14/21] multivitamin 1 tab PO 1200 10/20/20 [History Last Taken 01/15/21] temazepam 30 mg PO QHS PRN 10/20/20 [History Last Taken 01/15/21] methadone 10 mg PO TID 5 Days #15 tab 10/25/20 [Rx Last Taken 01/15/21] ferrous sulfate [FeroSul] 325 mg PO 1200,1700 #60 tab 12/03/20 [Rx Last Taken 0 01/15/21] ondansetron 4 mg PO Q6H PRN 01/10/21 [History Last Taken Unknown] bisacodyl 10 mg [place] DAILY PRN 01/16/21 [History Last Taken 01/10/21] loperamide [Imodium A-D] 2 mg PO Q6H PRN 01/16/21 [History Last Taken Unknown] magnesium hydroxide [Milk of Magnesia] 400 mg PO DAILY PRN 01/16/21 [History L ast Taken 01/14/21] mineral oil 118 ml [place] DAILY PRN 01/16/21 [History Last Taken Unknown] sulfamethoxazole-trimethoprim [Bactrim DS] 1 tab PO BID 01/16/21 [History Last Taken 01/16/21] Allergy/AdvReac Type Severity Reaction Status Date / Time codeine Allergy Mild HIVES Verified 01/16/21 13:14 Penicillins Allergy Anaphylaxis Verified 01/16/21 13:14 Family History Mother Diabetes Heart disease Hypertension CAD (coronary artery disease) CVA (cerebral vascular accident) Thyroid disorder Father Colon cancer Surgical History (Updated 01/19/21 @ 08:31 by Shannon Hinds) History of bilateral carpal tunnel release History of bilateral cataract extraction History of blepharoplasty History of cystoscopy History of esophagogastroduodenoscopy (EGD) (~03/07/19) History of left heart catheterization (01/16/21) History of right hip replacement History of right salpingo-oophorectomy S/P appendectomy S/P laparoscopic cholecystectomy Status post ORIF of fracture of ankle Social History Smoking Status: Former smoker Tobacco: How many years used: 50 alcohol intake: never substance use type: does not use ROS ROS Narrative states that she has poor appetite and is afraid to eat due to abdominal pain Cardiovascular Cardiovascular: Reports other Details: followed by cardiology for Takotsubo cardiomyopathy, card cath results reviewed by me, EF around 40% Gastrointestinal Gastrointestinal: Reports other Details: see HPI Physical Exam Narrative 70 y/o WF in no apparent distress, alert and oriented she states that she is 8 out of 10 abdominal pain, however, I can easily press on her abdomen and it is soft and she does not exhibit any signs of pain, no wincing, etc. Rectal examination - no stool in vault, patient does have a rectocele Medical Records Data Medical Nutrition Assessment Dietitian: Nutrition Therapy Diagnosis Start: 01/17/21 09:17 Freq: Status: Active Protocol: Document 01/19/21 11:08 LEONARD (Rec: 01/19/21 11:08 LEONARD [id number]) Nutrition Malnutrition Evidence of Malnutrition Exists No Intake Problem Inadequate Oral Intake Etiology related to issues w/ constipation Signs/Symptoms as evidenced by last BM 01/11 and pt c/o feeling full when eating only small amounts; pt has orders for stooling agents . Status Active Problem Clinical Problem Biting/Chewing Difficulty Etiology related to edentulous Signs/Symptoms as evidenced by pt requesting for [facility] soft diet consistency for ease of eating Status Active Problem Recommendation Dietitian Recommendations/Changes Will continue Cardiac diet mech soft consistency per pt request Will continue to provide ensure enlive 4x/day with medpass for increased nutrition if consumed. Lab / Micro Data Result Diagrams: 01/20/21 05:00 01/20/21 05:00 Labs: Laboratory Results - last 24 hr 01/20/21 05:00: WBC 7.2, RBC 3.89 L, Hgb 11.4 L, Hct 35.7 L, MCV 91.8, MCH 29.3, MCHC 31.9 L, RDW Std Deviation 45.6 H, RDW Coeff of Jordin 13.5, Plt Count 269, MPV 8.8, Immature Gran % (Auto) 0.600, Neut % (Auto) 49.9, Lymph % (Auto) 34.4, [place] % (Auto) 10.7 H, Eos % (Auto) 3.7, Baso % (Auto) 0.7, Absolute Neuts (auto) 3.6, Absolute Lymphs (auto) 2.49, Nucleated RBC % 0 01/20/21 05:00: Sodium 136, Potassium 4.2, Chloride 99, Carbon Dioxide 33.0 H, Anion Gap 4 L, BUN 6 L, Creatinine 0.32 L, Estim Creat Clear Calc 46.43, Est GFR (MDRD) Af Amer 262, Est GFR (MDRD) Non-Af 217, BUN/Creatinine Ratio 18.8, Glucose 131 H, Calcium 8.1 L Radiology Impression Abdomen X-Ray 01/19/21 16:55 IMPRESSION: No acute findings, retained stool Electronically Signed: Edison Lawrence MD at 19:42 EDT , Service support ,
[2021-01-20] MEDS: Acetaminophen 325 MG Tablet 650 MG PO (17:10)
[2021-01-20] MEDS: Potassium Chloride Oral Tablet 20 MEQ PO (17:12)
[2021-01-20] MEDS: Pramipexole Di-HCl 1 MG Tablet PO (21:35)
[2021-01-20] MEDS: Temazepam 15 MG Capsule 30 MG PO (21:35)
[2021-01-20] MEDS: Benztropine 2 MG Tablet PO (21:36)
[2021-01-20] MEDS: Mirtazapine 15 MG Tablet 7.5 MG PO (21:37)
[2021-01-20] MEDS: Phenobarbital 32.4 MG Tablet PO (21:39)
[2021-01-20] MEDS: OXcarbazepine 600 MG Tablet PO (21:41)
[2021-01-21] VITALS (7 sets, daily range): BP systolic 99–150; BP diastolic 47–91; PULSE 85–93; RESP 16–18; TEMP 36.8–37.3; O2SAT 94–99
[2021-01-21] MEDS: Ondansetron 4 MG/2 ML Vial IV ×2 (03:40→09:49)
[2021-01-21] MEDS: Metoclopramide 10 MG/2 ML Vial 5 MG IV (04:35)
[2021-01-21] MEDS: 0.9% Saline Lock 10 ML Syringe IV ×2 (04:36→09:49)
[2021-01-21] MEDS: Levothyroxine 50 MCG Tablet PO (05:16)
--- NOTE | 2021-01-21 08:52 | PCM.PN.INT ---
Assessment & Plan Assessment/Plan (1) Acute non-ST elevation myocardial infarction (NSTEMI): PLAN: RECOMMENDATIONS: 1. Monitor off antibiotics 2. Wean supplemental oxygen to maintain saturations at or above 90%. 3. Encourage incentive spirometer use and mobilize patient as tolerated. 4. Hemodynamically stable on baseline supplemental oxygen. Will sign off from a critical care perspective IMPRESSIONS: 1. Undifferentiated shock The exact etiology for the patient's hypotension is unclear. The patient's hypotension was fluid refractory and she was therefore started on vasopressor support, which continues to be required overnight. There does not appear to be any focal source of blood loss. Patient does have a decreased EF. Unfortunately, urine appears to be contaminated. Clinical concern for bowel ischemia from surgery. Patient appears to have poor insight. Given patient has been hemodynamically stable on minimal nasal cannula oxygen, will sign off from a critical care perspective. Please call with any issues. 2. Non-ST segment elevation [place]/Takotsubo cardiomyopathy The patient did undergo cardiac catheterization, which revealed mild nonobstructive coronary disease and an ejection fraction of 35 to 40%. Plan to continue medical management. 3. Chronic constipation/unspecified seizure disorder/essential tremor/chronic back pain/depression Complicates care, management, recovery and prognosis. Continue home medications as indicated. Unclear if medications nocturnally are adding to current situation. If patient is unresponsive to antibiotics, may need to assess removal of medications in a stepwise fashion. Subjective Subjective Patient transferred from the intensive care unit yesterday. No acute issues were reported overnight. Patient continues to have significant reflux symptoms, but denies any nausea or vomiting. Patient is not having any respiratory complaints at this time Objective Data Objective Data Vital Signs: Vital Signs Temp Pulse Resp BP Pulse Ox 36.8 C 85 16 150/91 H 98 01/21/21 03:35 01/21/21 07:00 01/21/21 03:35 01/21/21 03:35 01/21/21 07:25 Oxygen Flow Rate (L/min) 2 Oxygen Delivery Method Nasal Cannula Weight: 78.9 kg Body Mass Index (BMI) 29.5 Intake & Output: Intake and Output for Last 24 Hours 01/19/21 01/20/21 01/21/21 23:59 23:59 23:59 Intake Total 946.45 / 946.45 220 / 370 200 / 200 Output Total 550 / 550 500 / 900 900 / 900 Balance 396.45 / 396.45 -280 / -530 -700 / -700 Medical Nutrition Assessment Dietitian: Nutrition Therapy Diagnosis Start: 01/17/21 09:17 Freq: Status: Active Protocol: Document 01/20/21 09:50 AG (Rec: 01/21/21 07:35 AG [id number]) Nutrition Malnutrition Evidence of Malnutrition Exists No Intake Problem Inadequate Oral Intake Etiology related to decreased appetite w/ constipation Signs/Symptoms as evidenced by estimated PO intake meeting <50% of estimated nutritional needs x 3 days Status Active Problem Clinical Problem Biting/Chewing Difficulty Etiology related to poor dentition Signs/Symptoms as evidenced by difficulty chewing regular textured foods and need for altered consistency Status Active Problem Recommendation Dietitian Recommendations/Changes continue cardiac diet- mechanical (minced/moist) d/t poor dentition. Continue Ensure Enlive 120mL 4x/day d/t poor appetite/PO intake. Lab / Micro Data Result Diagrams: 01/20/21 05:00 01/20/21 05:00 Micro: Microbiology 01/19/21 10:20 Stool Stool Occult Blood (JASWANT) - Final 01/17/21 04:45 Urine, Clean Catch Urine Culture - Final Mixed Gram Positive Organisms 01/17/21 06:37 Blood Culture (Wb) - Left Foot Blood Culture - Preliminary No growth in 48 hours. 01/17/21 06:22 Blood Culture (Wb) - Right Foot Blood Culture - Preliminary No growth in 48 hours. Physical Exam Const alert and no apparent distress General Appearance: cooperative and well developed HEENT normocephalic, head/scalp atraumatic and moist oral mucous membranes Eyes PERRL and EOMs intact bilaterally Neck full ROM and no lymphadenopathy Chest inspection of chest normal Resp normal respiratory effort and no use of accessory muscles Effort and Inspection: able to speak in complete sentences Auscultation: clear to auscultation bilaterally; Negative for rales, rhonchi or wheezes Percussion: Negative for dullness Cardio regular rate, regular rhythm, S1 normal heart sound, S2 normal heart sound, no murmurs, no rub and no gallops GI normal to inspection, nondistended, normoactive bowel sounds no CVA tenderness Extremity no clubbing, cyanosis or edema Skin no rashes or lesions noted Neuro CN's II-XII intact bilaterally, moves all extremities and no focal motor deficits Psych cooperative and affect normal Charges/Coding Visit Charges Inpatient E&M: 97259 Subs Hosp L2
[2021-01-21] MEDS: BRIMONIDINE 0.15% 5 ML Bottle 1 DRP OPHTHALMIC (09:36)
[2021-01-21] MEDS: Midodrine HCl 5 MG Tablet 10 MG PO ×2 (09:36→13:31)
[2021-01-21] MEDS: Benztropine 2 MG Tablet PO (09:36)
[2021-01-21] MEDS: Potassium Chloride Oral Tablet 20 MEQ PO (09:36)
[2021-01-21] MEDS: Pantoprazole Sodium 20 MG Tablet PO (09:37)
[2021-01-21] MEDS: Bisacodyl 10 MG Suppository RC (09:37)
[2021-01-21] MEDS: Senna/Docusate Sodium 1 Tablet 2 TABLET PO (09:37)
[2021-01-21] MEDS: Ergocalciferol 1.25 MG (50, 000 UNIT) Capsule PO (09:38)
[2021-01-21] MEDS: OXcarbazepine 600 MG Tablet PO (09:38)
[2021-01-21] MEDS: Phenobarbital 32.4 MG Tablet PO (09:41)
--- NOTE | 2021-01-21 09:56 | PCM.DC ---
Discharge Instructions Diet Discharge Diet: 2000 mg Sodium Diet Activity Discharge Activity: Return to Normal Activity, May Not Drive and - (Patient has Rollator at home.) Weight Bearing Status: Weight bearing as tolerated and - (Advised ) Dressing / Incision Call your doctor if you observe: Fever of 101 or Higher, Coldness, Increased Pain, Numbness or Tingling, Inability to urinate, Inability to have a bowel movement, Shortness of breath, Dizziness, Swelling in the ankles, Prolonged hiccupping, Increased palpitations (irregular heartbeat), Calf discomfort and Uncontrolled pain Follow Up Care Test Results: Test results from this visit will be discussed in further detail at your follow-up appointment, if applicable. Discharge Plan Admission Admit Date/Time: 01/16/21 16:10 Primary Reason for Your Visit: Takotsubo cardiomyopathy Attending Provider: Valentín Harry Primary Care Provider: Patel Veliz Chi Consulting Providers: Juvenal Gonsalez ; Jade Sy Instructions Patient Instructions: ED Chest Pain, Noncardiac Discharge Orders/Prescriptions Prescriptions: New atorvastatin 40 mg Tablet 40 mg PO QHS Qty: 30 RF: 0 polyethylene glycol 3350 17 gram Powder In Packet 17 g PO DAILY Qty: 0 RF: 0 nitroglycerin 0.4 mg Tablet, Sublingual 0.4 mg sublingual Q5M PRN (Reason: CHEST PAIN) Qty: 30 RF: 0 Metamucil Fiber Singles 3.4 gram Powder In Packet 1 packet PO TID Qty: 0 RF: 0 metoprolol succinate 25 mg capsule,sprinkle,ER 24hr 25 mg PO DAILY Qty: 30 RF: 0 midodrine 10 mg tablet 10 mg PO TID Qty: 90 RF: 0 magnesium hydroxide [Milk of Magnesia] 400 mg/5 mL suspension 5 ml PO DAILY PRN (Reason: constipation) Qty: 150 RF: 0 Continued Myrbetriq 25 mg tablet extended release 24 hr 25 mg PO BID RF: 0 omeprazole 20 mg capsule,delayed release(DR/EC) 20 mg PO DAILY RF: 0 sennosides-docusate sodium [Senexon-S] 8.6-50 mg tablet 2 tab PO BID RF: 0 calcium carbonate [Oyster Shell Calcium] 500 mg calcium (1,250 mg) tablet 500 mg PO BID RF: 0 fluticasone furoate-vilanterol 100-25 mcg/dose blister with device 2 puff INHALATION DAILY RF: 0 albuterol sulfate [Ventolin HFA] 90 mcg/actuation HFA aerosol inhaler 1 inh INHALATION BID PRN PRN (Reason: COPD) RF: 0 brimonidine 0.15 % drops 1 drp OPHTHALMIC BID RF: 0 benztropine 2 mg tablet 2 mg PO BID Qty: 60 RF: 3 oxcarbazepine 600 mg tablet 600 mg PO BID Qty: 60 RF: 3 phenobarbital 32.4 mg tablet 32.4 mg PO BID Qty: 60 RF: 3 potassium chloride 20 MEQ tablet 20 meq PO BID RF: 0 levothyroxine 50 MCG tablet 50 mcg PO DAILY RF: 0 duloxetine 20 MG capsule,delayed release(DR/EC) 20 mg PO DAILY RF: 0 mirtazapine 7.5 mg tablet 7.5 mg PO QHS RF: 0 ropinirole 2 MG tablet 2 mg PO QHS RF: 0 acetaminophen 325 MG tablet 650 mg PO Q6H PRN PRN (Reason: Pain Score 1-10/Temp > 100.7 F) RF: 0 multivitamin Tablet 1 tab PO 1200 RF: 0 cholecalciferol (vitamin D3) 1,250 mcg (50,000 unit) capsule 1,250 mcg PO WE RF: 0 methadone 10 mg tablet 10 mg PO TID 5 Days Qty: 15 RF: 0 ferrous sulfate [FeroSul] 325 mg (65 mg iron) Tablet 325 mg PO 1200,1700 Qty: 60 RF: 1 ondansetron 4 mg Tablet,Disintegrating 4 mg PO Q6H PRN (Reason: Nausea) RF: 0 loperamide [Imodium A-D] 2 mg Tablet 2 mg PO Q6H PRN (Reason: Diarrhea) RF: 0 mineral oil Enema 118 ml [place] DAILY PRN (Reason: Constipation) RF: 0 bisacodyl 10 mg Suppository 10 mg [place] DAILY PRN (Reason: Constipation) RF: 0 aspirin 81 MG tablet,delayed release (DR/EC) 81 mg PO 1200 Qty: 30 RF: 0 temazepam 30 mg Capsule 30 mg PO QHS PRN (Reason: Sleep) Qty: 0 RF: 0 nicotine 21 mg/24 hr patch 24 hour 1 patch TOPICAL DAILY Qty: 30 RF: 0 Discontinued sulfamethoxazole-trimethoprim [Bactrim DS] 800-160 mg Tablet 1 tab PO BID RF: 0 magnesium hydroxide [Milk of Magnesia] 400 mg/5 mL Suspension 400 mg PO DAILY PRN (Reason: Constipation) RF: 0 Referrals / Follow Up: Saulo Moss MD [STAFF PHYSICIAN] - Within 2 Weeks (Takotsubo cardiomyopathy) Patel Veliz Chi, MD [Primary Care Provider] - In 1 Week August Ames MD [STAFF PHYSICIAN] - Within 2 Weeks (For extrapyramidal syndrome) Disposition Disposition (needs filled in before D/C Order can be placed): Home, Self Care
--- NOTE | 2021-01-21 09:57 | PCM.DC.SUM ---
Providers Date of Admission: 01/16/21 Primary Care Physician: Dr. Patel Veliz MD Consultations 01/17/21 01:04 Consult: Online Banking Specialist / Pulmonary Medicine Routine Consulting Provider: Juvenal Gonsalez Reason for Consult: Admit w/ NSTEMI, cath per Cardio, following ICU transition hypotension EMERGENT Consult: No MD Notified: Yes Date Notified: 01/17/21 Time Notified: 01:04 Method of Notification: Cortext 01/20/21 12:36 Consult: General Surgery Routine Consulting Provider: Jade Sy Reason for Consult: Nonspecific abdominal pain probably constipation. Nonresolving contipation EMERGENT Consult: No MD Notified: Yes Date Notified: 01/20/21 Time Notified: 12:36 Method of Notification: telephone Reason For Visit: NSTEMI Diagnosis Discharge Diagnosis (1) Acute non-ST elevation myocardial infarction (NSTEMI): Status: Acute Code(s): I21.4 - Non-ST elevation (NSTEMI) myocardial infarction Medications at Discharge Home Medications duloxetine 20 mg PO DAILY 01/07/19 levothyroxine 50 mcg PO DAILY 01/07/19 potassium chloride 20 meq PO BID 01/07/19 mirtazapine 7.5 mg tablet 7.5 mg PO QHS tablet 02/21/19 ropinirole 2 mg PO QHS 08/08/19 acetaminophen 650 mg PO Q6H PRN PRN tablet 08/11/19 albuterol sulfate 90 mcg/actuation aerosol inhaler 1 inh INHALATION BID PRN PRN 05/13/20 calcium carbonate 500 mg calcium (1,250 mg) tablet 500 mg PO BID 05/13/20 fluticasone furoate 100 mcg-vilanterol 25 mcg/dose inhalation powder 2 puff INHALATION DAILY 05/13/20 mirabegron 25 mg tablet,extended release 24 hr 25 mg PO BID tab 05/13/20 omeprazole 20 mg capsule,delayed release 20 mg PO DAILY cap 05/13/20 sennosides 8.6 mg-docusate sodium 50 mg tablet 2 tab PO BID 05/13/20 brimonidine 0.15 % eye drops 1 drp OPHTHALMIC BID 07/09/20 benztropine 2 mg tablet 2 mg PO BID #60 tab 10/13/20 oxcarbazepine 600 mg tablet 600 mg PO BID #60 tab 10/13/20 phenobarbital 32.4 mg tablet 32.4 mg PO BID #60 tab 10/13/20 cholecalciferol (vitamin D3) 1,250 mcg PO WE 10/20/20 multivitamin 1 tab PO 1200 10/20/20 methadone 10 mg PO TID 5 Days #15 tab 10/25/20 ferrous sulfate [FeroSul] 325 mg PO 1200,1700 #60 tab 12/03/20 ondansetron 4 mg PO Q6H PRN 01/10/21 bisacodyl 10 mg [place] DAILY PRN 01/16/21 loperamide [Imodium A-D] 2 mg PO Q6H PRN 01/16/21 mineral oil 118 ml [place] DAILY PRN 01/16/21 aspirin 81 mg PO 1200 #30 tab 01/21/21 atorvastatin 40 mg PO QHS #30 tab 01/21/21 magnesium hydroxide [Milk of Magnesia] 5 ml PO DAILY PRN #150 ml 01/21/21 midodrine 10 mg PO TID #90 tab 01/21/21 nicotine 1 patch TOPICAL DAILY #30 ea 01/21/21 nitroglycerin 0.4 mg SUBLINGUAL Q5M PRN #30 tab 01/21/21 polyethylene glycol 3350 17 g PO DAILY #0 ea 01/21/21 psyllium husk (aspartame) [Metamucil Fiber Singles] 1 packet PO TID #0 ea 01/21/21 temazepam 30 mg PO QHS PRN #0 cap 01/21/21 Hospital Course Summary of Care Provided Hospital Course: This 70-year-old female being admitted for abdominal and chest pain found to have non-STEMI 1. Non-STEMI complicated with hypotension probably cardiogenic/undifferentiated shock: MAURO risk score is high 5 points. The patient was taken to Leak Detection Engineer and was found to have a EF 35 to 40% consistent with Takotsubo cardiomyopathy. No significant or MR. After that she will admitted in ICU. Patient is on aspirin. Heart rate and blood pressure are in normal range. After heart cath, patient will be on Brilinta, and high intensity statin. The patient was on Levophed drip as blood pressure was persistently low despite fluid boluses. Patient heart rate and blood pressure are low; actually she requires midodrine to keep blood pressure systolic more than 90 therefore not a candidate for metoprolol and LIDIA inhibitors/ARB. Repeat echo EF 35% with mild eccentric MR, TR. Patient last echo shows EF 60% with mild renal restlessness and, mild TR.Lactic acid 1.1. Procalcitonin, TSH, magnesium and phosphorus are normal. Patient came off Levophed drip, on midodrine. Was transferred to PCU and blood pressure is stable. Discontinue patient's medline which was inserted. . 2. Abdominal pain and acute on chronic constipation CT obtained done last week demonstrated no acute infiltrative process or evidence of bowel obstruction, rectocele/pelvic floor instability. Patient on stool regimen including Dulcolax suppository. Surgery consult was done. Discussed with Dr. Sy and I agree with her finding of abdominal pain out of proportion to physical findings history of chronic mesenteric ischemia. She further states he found significant aortic calcification in the area of SMA and GIORGI. She is not a candidate for any surgical options therefore follow with PCP. She follows Dr. Andujar for pain management. 3 chronic hyponatremia probably related to medication cocci Cardizem: Patient was discharged on sodium 134 and admitting sodium 129. Sodium was corrected. Last sodium 136. 4 seizure disorder Continue oxcarbazepine. 5 involuntary/extrapyramidal movement disorder Benztropine, Myrbetriq resumed 6 COPD: Patient not on exacerbation VT prophylaxis: Lovenox 40 mg subcu daily. DVT prophylaxis Other multiple problem includes physical debility, restless leg syndrome, sleep apnea, chronic spinal stenosis, anxiety and depression: Last time, she was discharged on [facility] about a week ago. This time she did not want to go back therefore discharged to home. Patient was evaluated by case technician and social media content manager and she has all the equipments at home. Living will/advanced directive/end of life care: Patient does not have living will or advanced directive. Her son present in the room is power of bankruptcy attorney of [facility]. After discussion of benefits/risks procedures involved with full code, DNR CC arrest and DNR CC, the patient and her son agreed for DNR-CC Arrest with no intubation Patient and her son does not want artificial life support including intubation, ventilator and/chest compression, DC shock Palliative care consult was done. Physical Exam Narrative Seen and examined. traffic monitor specialist shows sinus rhythm with PVCs. Patient blood pressure is maintained on midodrine. She is off Levophed drip for last 2 day. Patient also has GERD symptoms complaining of heartburn/acid reflux with sour taste in mouth and has history of hiatus hernia. Discussed with Dr. Sy. Physical exam General: Awake, alert oriented x3. HEENT: Atraumatic, PERRLA, EOMI, Normocephalic Oral: No Gingival or Mucosal Lesions/ Ulcerations Neck: Supple, No JVD, Negative Carotid Bruits Lungs: Air entry diminished in bilateral lung bases. No crepitation/rhonchi Cardiovascular: Sinus rhythm. Normal S1, Normal S2, grade 2/6 LLSB systolic murmur Abdomen: Bowel Sounds Present, Soft, Non-Distended, no tenderness. : No renal angle tenderness. No suprapubic tenderness. Extremities: No edema, Capillary Refill Less than 3 Seconds Skin: No rashes, No breakdown Musculoskeletal: ROM restricted. Weakness of lower extremity muscles. No Tenderness to Palpation of Joints or Extremities Neurological: Involuntary movement of head and neck. Cranial nerves II-XII grossly intact, Deep Tendon Reflexes 2+/4 Psych/Mental Status: Normal affect. Medical Records Data Medical Nutrition Assessment Dietitian: Nutrition Therapy Diagnosis Start: 01/17/21 09:17 Freq: Status: Active Protocol: Document 01/20/21 09:50 AG (Rec: 01/21/21 07:35 AG [id number]) Nutrition Malnutrition Evidence of Malnutrition Exists No Intake Problem Inadequate Oral Intake Etiology related to decreased appetite w/ constipation Signs/Symptoms as evidenced by estimated PO intake meeting <50% of estimated nutritional needs x 3 days Status Active Problem Clinical Problem Biting/Chewing Difficulty Etiology related to poor dentition Signs/Symptoms as evidenced by difficulty chewing regular textured foods and need for altered consistency Status Active Problem Recommendation Dietitian Recommendations/Changes continue cardiac diet- mechanical (minced/moist) d/t poor dentition. Continue Ensure Enlive 120mL 4x/day d/t poor appetite/PO intake. Weight / BMI Weight Weight: 173 lb 15.115 oz Body Mass Index (BMI) 29.5 ABG / Lab / Microbiology Data Result Diagrams: 01/20/21 05:00 01/20/21 05:00 Microbiology: Microbiology 01/19/21 10:20 Stool Stool Occult Blood (JASWANT) - Final 01/17/21 04:45 Urine, Clean Catch Urine Culture - Final Mixed Gram Positive Organisms 01/17/21 06:37 Blood Culture (Wb) - Left Foot Blood Culture - Preliminary No growth in 48 hours. 01/17/21 06:22 Blood Culture (Wb) - Right Foot Blood Culture - Preliminary No growth in 48 hours. Meaningful Use Info Meaningful Use Diagnoses (Choose all that apply): None applicable Discharge Plan Admission Admit Date/Time: 01/16/21 16:10 Primary Reason for Your Visit: Takotsubo cardiomyopathy Attending Provider: Valentín Harry Primary Care Provider: Patel Veliz Chi Consulting Providers: Juvenal Gonsalez ; Jade Sy Instructions Patient Instructions: ED Chest Pain, Noncardiac Discharge Orders/Prescriptions Prescriptions: New atorvastatin 40 mg Tablet 40 mg PO QHS Qty: 30 RF: 0 polyethylene glycol 3350 17 gram Powder In Packet 17 g PO DAILY Qty: 0 RF: 0 nitroglycerin 0.4 mg Tablet, Sublingual 0.4 mg sublingual Q5M PRN (Reason: CHEST PAIN) Qty: 30 RF: 0 Metamucil Fiber Singles 3.4 gram Powder In Packet 1 packet PO TID Qty: 0 RF: 0 midodrine 10 mg tablet 10 mg PO TID Qty: 90 RF: 0 magnesium hydroxide [Milk of Magnesia] 400 mg/5 mL suspension 5 ml PO DAILY PRN (Reason: constipation) Qty: 150 RF: 0 Continued Myrbetriq 25 mg tablet extended release 24 hr 25 mg PO BID RF: 0 omeprazole 20 mg capsule,delayed release(DR/EC) 20 mg PO DAILY RF: 0 sennosides-docusate sodium [Senexon-S] 8.6-50 mg tablet 2 tab PO BID RF: 0 calcium carbonate [Oyster Shell Calcium] 500 mg calcium (1,250 mg) tablet 500 mg PO BID RF: 0 fluticasone furoate-vilanterol 100-25 mcg/dose blister with device 2 puff INHALATION DAILY RF: 0 albuterol sulfate [Ventolin HFA] 90 mcg/actuation HFA aerosol inhaler 1 inh INHALATION BID PRN PRN (Reason: COPD) RF: 0 brimonidine 0.15 % drops 1 drp OPHTHALMIC BID RF: 0 benztropine 2 mg tablet 2 mg PO BID Qty: 60 RF: 3 oxcarbazepine 600 mg tablet 600 mg PO BID Qty: 60 RF: 3 phenobarbital 32.4 mg tablet 32.4 mg PO BID Qty: 60 RF: 3 potassium chloride 20 MEQ tablet 20 meq PO BID RF: 0 levothyroxine 50 MCG tablet 50 mcg PO DAILY RF: 0 duloxetine 20 MG capsule,delayed release(DR/EC) 20 mg PO DAILY RF: 0 mirtazapine 7.5 mg tablet 7.5 mg PO QHS RF: 0 ropinirole 2 MG tablet 2 mg PO QHS RF: 0 acetaminophen 325 MG tablet 650 mg PO Q6H PRN PRN (Reason: Pain Score 1-10/Temp > 100.7 F) RF: 0 multivitamin Tablet 1 tab PO 1200 RF: 0 cholecalciferol (vitamin D3) 1,250 mcg (50,000 unit) capsule 1,250 mcg PO WE RF: 0 methadone 10 mg tablet 10 mg PO TID 5 Days Qty: 15 RF: 0 ferrous sulfate [FeroSul] 325 mg (65 mg iron) Tablet 325 mg PO 1200,1700 Qty: 60 RF: 1 ondansetron 4 mg Tablet,Disintegrating 4 mg PO Q6H PRN (Reason: Nausea) RF: 0 loperamide [Imodium A-D] 2 mg Tablet 2 mg PO Q6H PRN (Reason: Diarrhea) RF: 0 mineral oil Enema 118 ml [place] DAILY PRN (Reason: Constipation) RF: 0 bisacodyl 10 mg Suppository 10 mg [place] DAILY PRN (Reason: Constipation) RF: 0 aspirin 81 MG tablet,delayed release (DR/EC) 81 mg PO 1200 Qty: 30 RF: 0 temazepam 30 mg Capsule 30 mg PO QHS PRN (Reason: Sleep) Qty: 0 RF: 0 nicotine 21 mg/24 hr patch 24 hour 1 patch TOPICAL DAILY Qty: 30 RF: 0 Discontinued sulfamethoxazole-trimethoprim [Bactrim DS] 800-160 mg Tablet 1 tab PO BID RF: 0 magnesium hydroxide [Milk of Magnesia] 400 mg/5 mL Suspension 400 mg PO DAILY PRN (Reason: Constipation) RF: 0 Referrals / Follow Up: Saulo Moss MD [STAFF PHYSICIAN] - 02/05/21 1:30 pm (Takotsubo cardiomyopathy) August Ames MD [STAFF PHYSICIAN] - 01/26/21 2:00 pm (For extrapyramidal syndrome) Patel Veliz Chi, MD [Primary Care Provider] - 01/21/21 3:20 pm (Lunch Hour is 12-1) Disposition Disposition (needs filled in before D/C Order can be placed): Home, Self Care Charges/Coding Visit Charges Inpatient E&M: 91696 Disch Hosp
--- NOTE | 2021-01-21 10:07 | CASEMGMT ---
This RN CM to room to update pt on therapy notes and discuss discharge plan. Pt declines need for any further therapy at discharge(HHC/OP) and is aware that she can call PCP, if she decides she does need therapy once home, voices understanding. Pt declines need for any further resources. SStbreanna RN YOSHI
--- NOTE | 2021-01-21 10:28 | CASEMGMT ---
Social Work Telephone call to Elly DALAL. Elly updated on patient discharge to home today. Discharge information faxed to Elly per request. Proposed discharge date: 01/21/2021 Disposition: Home alone with continued PASSPORT services. Irvin LEWIS, NORMANS
[2021-01-21] MEDS: Aspirin E.C. 81 MG Tablet PO (13:31)
[2021-01-21] MEDS: Ferrous Sulfate 325 MG Tablet PO (13:32)
[2021-01-21] MEDS: oxyCODONE 5 MG Tablet PO (13:32)
--- NOTE | 2021-01-21 15:16 | PHA.DC.MC ---
Pharmacy Service has performed discharge medication reconciliation and counseling for this patient. 1. ASPIRIN 81MG PO DAILY 2. ATORVASTATIN 40MG PO QHS 3. MIDODRINE 10MG PO TID 4. METAMUCIL 3.4GM PO TID 5. MIRALAX 17GM PO DAILY The patient's discharge medication list was reviewed for discrepancies and discrepancies were resolved. [facility] spoke to patient's son-in-law, Samson, he would like her medications sent to our retail pharmacy. [facility] spoke to Nicole in retail and she will have the meds transferred to our retail pharmacy. Home Medications duloxetine 20 mg PO DAILY 01/07/19 levothyroxine 50 mcg PO DAILY 01/07/19 potassium chloride 20 meq PO BID 01/07/19 mirtazapine 7.5 mg tablet 7.5 mg PO QHS tablet 02/21/19 ropinirole 2 mg PO QHS 08/08/19 acetaminophen 650 mg PO Q6H PRN PRN tablet 08/11/19 albuterol sulfate 90 mcg/actuation aerosol inhaler 1 inh INHALATION BID PRN PRN 05/13/20 calcium carbonate 500 mg calcium (1,250 mg) tablet 500 mg PO BID 05/13/20 fluticasone furoate 100 mcg-vilanterol 25 mcg/dose inhalation powder 2 puff INHALATION DAILY 05/13/20 mirabegron 25 mg tablet,extended release 24 hr 25 mg PO BID tab 05/13/20 omeprazole 20 mg capsule,delayed release 20 mg PO DAILY cap 05/13/20 sennosides 8.6 mg-docusate sodium 50 mg tablet 2 tab PO BID 05/13/20 brimonidine 0.15 % eye drops 1 drp OPHTHALMIC BID 07/09/20 benztropine 2 mg tablet 2 mg PO BID #60 tab 10/13/20 oxcarbazepine 600 mg tablet 600 mg PO BID #60 tab 10/13/20 phenobarbital 32.4 mg tablet 32.4 mg PO BID #60 tab 10/13/20 cholecalciferol (vitamin D3) 1,250 mcg PO WE 10/20/20 multivitamin 1 tab PO 1200 10/20/20 methadone 10 mg PO TID 5 Days #15 tab 10/25/20 ferrous sulfate [FeroSul] 325 mg PO 1200,1700 #60 tab 12/03/20 ondansetron 4 mg PO Q6H PRN 01/10/21 bisacodyl 10 mg [place] DAILY PRN 01/16/21 loperamide [Imodium A-D] 2 mg PO Q6H PRN 01/16/21 mineral oil 118 ml [place] DAILY PRN 01/16/21 aspirin 81 mg PO 1200 #30 tab 01/21/21 atorvastatin 40 mg PO QHS #30 tab 01/21/21 magnesium hydroxide [Milk of Magnesia] 5 ml PO DAILY PRN #150 ml 01/21/21 midodrine 10 mg PO TID #90 tab 01/21/21 nicotine 1 patch TOPICAL DAILY #30 ea 01/21/21 nitroglycerin 0.4 mg SUBLINGUAL Q5M PRN #30 tab 01/21/21 polyethylene glycol 3350 17 g PO DAILY #0 ea 01/21/21 psyllium husk (aspartame) [Metamucil Fiber Singles] 1 packet PO TID #0 ea 01/21/21 temazepam 30 mg PO QHS PRN #0 cap 01/21/21 The patient was counseled on the following discharge medications and changes in medications for homegoing were reviewed. The Reason for Use, instructions for use, and potential side effects were reviewed for all new medications. The patient's questions regarding all of their medications were answered. The patient was able to verbally demonstrate an understanding of their discharge medications.
--- NOTE | 2021-01-22 14:12 | CASEMGMT ---
ERIC BELLE Discharge Follow-up Phone Call: YOUNG: 14 Strata: 4 Call Date: 01/22/21 Discharge Date: 01/21/21 Time of Call: 1415 Duration: 5 min Admitting Diagnosis: NSTEMI ERIC BELLE completed follow-up phone call after recent hospitalization. Patient states she is doing fine. Patient states she has not received her meds yet from [place] but has number to inquire and will call. Patient states she is aware of follow-up appts as scheduled. Patient is concerned with getting her things put aware, RN CM encourage patient to call CM at [facility] for additional assistance. RN CM encouraged patient to reach out to son for assistance as well, she voiced understanding. Patient had no further questions or concerns.
== END 2021-01-21 15:16 | disposition home or self-care (01) | DRG 281 ==
LOC: ED 15:48 → ICU 16:25 → PCU 17:27 → ICU 01-17 11:09 → PCU 01-20 10:38
PROVIDERS: Internal Medicine Critical Care Medicine; Specialist; Admitting Provider Internal Medicine; Emergency Provider Emergency Medicine; PCP Family Medicine Geriatric Medicine; Visit Provider Internal Medicine
DX: I21.4 Non-ST elevation (NSTEMI) myocardial infarction (principal); I51.81 Takotsubo syndrome; E87.1 Hypo-osmolality and hyponatremia; R57.9 Shock, unspecified; T46.1X5A Adverse effect of calcium-channel blockers, initial encounter; I25.10 Atherosclerotic heart disease of native coronary artery without angina pectoris; I70.0 Atherosclerosis of aorta; K59.09 Other constipation; J44.9 Chronic obstructive pulmonary disease, unspecified; G40.909 Epilepsy, unspecified, not intractable, without status epilepticus; G25.81 Restless legs syndrome; G25.0 Essential tremor; G47.33 Obstructive sleep apnea (adult) (pediatric); F32.9 Major depressive disorder, single episode, unspecified; F41.9 Anxiety disorder, unspecified; R30.0 Dysuria; R53.81 Other malaise; M48.00 Spinal stenosis, site unspecified; G89.29 Other chronic pain; K21.9 Gastro-esophageal reflux disease without esophagitis; Z66 Do not resuscitate; Z79.82 Long term (current) use of aspirin; Z79.899 Other long term (current) drug therapy; Z87.891 Personal history of nicotine dependence
CPT/HCPCS: 36415; 71045; 74019; 80048; 80053; 80061; 80076; 81001; 82274; 83605; 83690; 83735; 84100; 84145; 84443; 84484; 85014; 85018; 85025; 87040; 87086; 87088; 93005; 93306; 93458; 94640; 97162; 97166; 99152; 99153; 99251; 99285; J2185; J7030; J7040; J7050; J7120; Q9957; Q9967; A4216; C1760; C1769; G0463; J2405; J3490

== ENCOUNTER → 2021-01-21 16:05 | Outpatient (CLI) | payer MEDICARE, MEDICAID, SELFPAY ==
[2021-01-16 17:18] VITALS: BMI 29.5
[2021-01-21 17:20] LABS: Absolute Lymphocyte Count 2.62 X10^3/uL (0.83-4.51); Basophil# 0.07 X10^3/uL; Basophil% 0.8 % (0-1); Eosinophil# 0.18 X10^3/uL; Eosinophils% 2.1 % (0-5); Hemoglobin 13.1 g/dL (12.0-15.0); Lymphocyte # 2.62 X10^3/ul (0.83-4.51); Lymphocyte % 30.3 % (19-41); Mean Corpuscular Hgb 29.2 pg (27.0-32.0); Mean Corpuscular Volume 91.5 fL (81-99); Mean Platelet Vol. 10.2 fl (6.2-12.0); Monocyte# 0.75 X10^3/uL; Monocyte% 8.7 % (0-10); NRBC Flagged by Analyzer 0 % (0-5); Neutrophil # 4.98 X10^3/uL (2.7-7.7); Neutrophil % 57.6 % (47-70); Platelet Count 398 K/mm3 (150-450); RBC Distribution Width CV 13.6 % (11.6-14.6); RBC Distribution Width SD 46.2 fl (35.1-43.9); Red Blood Count 4.48 M/mm3 (4.2-5.4); White Blood Count 8.6 K/mm3 (4.4-11.0)
[2021-01-21 17:30] LABS: Vitamin D,25 Hydroxy 49.5 ng/mL
[2021-01-21 17:56] LABS: AST(SGOT) 29 U/L (15-37); Alanine Aminotransfer ALT/SGPT 34 U/L (13-56); Albumin, Serum 3.5 g/dL (3.2-5.0); Alkaline Phosphatase 74 U/L (45-117); Anion Gap 8 (5-15); BUN 9 mg/dL (7-18); BUN/Creat Ratio 17.9 RATIO (10-20); Calcium,Total 8.9 mg/dL (8.5-10.1); Chloride 98 mmol/L (98-107); EST Glomerular Filtration Rate 129 mL/min (>60); Est Glom Filt Rate - Afr Amer 156 mL/min (>60); Globulin 3.6 g/dL (2.2-4.2); Glucose 152 mg/dL (74-106); Potassium 3.9 mmol/L (3.5-5.1); Protein, Total 7.1 g/dL (6.4-8.2); Sodium Level 135 mmol/L (136-145)
== END ==
PROVIDERS: PCP Family Medicine Geriatric Medicine; Visit Provider Family Medicine Geriatric Medicine
DX: I10 Essential (primary) hypertension (principal); E55.9 Vitamin D deficiency, unspecified
CPT/HCPCS: 36415; 80053; 82306; 84443; 85025

== ENCOUNTER 2021-01-31 11:03 | Emergency (ER) | payer MEDICARE, MEDICAID, SELFPAY ==
[2021-01-16 17:18] VITALS: BMI 29.5
[2021-01-31 11:04] VITALS: BP 121/79; PULSE 102; RESP 18; TEMP 37.7; O2SAT 96; BMI 29.0
--- NOTE | 2021-01-31 11:34 | ED.RN ---
pt reports pain to rectum. external hemmrroid noted with scant bleeding.pt reports it feels like he has to go, severe pain/pressure of needing to move bowels
--- NOTE | 2021-01-31 12:07 | EDS_ITS ---
HPI History of Present Illness Chief Complaint: Fall Informant: patient Narrative Narrative: Patient is a 70-year-old female who presents to the emergency department for rectal pain and bleeding. She has a very significant past medical history of hemorrhoids. This has been going on for years. She states that it just flared up last night. Laying on her back makes her symptoms worse. Nothing seems to make her symptoms better. She has had bright red blood per rectum. She denies any abdominal pain or back pain. No fevers or chills. No nausea vomiting. Patient did have a fall today but denies any injury. She is not on any blood thinning medications. She states that she typically uses Preparation H. She has never required surgery on the before in the past. [facility] Medical History Acute gastritis Anxiety COPD (chronic obstructive pulmonary disease) Degenerative disc disease, lumbar Depression Diverticulosis DVT (deep venous thrombosis) Gastritis Hypertension Hypotension Insomnia Obstructive sleep apnea On home oxygen therapy Pain, chronic Physical debility Restless leg syndrome Seizure disorder Sleep apnea Smoker Spinal stenosis Takotsubo cardiomyopathy Home Medications duloxetine 20 mg PO DAILY 01/07/19 [History Last Taken 01/15/21] levothyroxine 50 mcg PO DAILY 01/07/19 [History Last Taken 11/21/20] potassium chloride 20 meq PO BID 01/07/19 [History Last Taken 01/15/21] mirtazapine 7.5 mg tablet 7.5 mg PO QHS tablet 02/21/19 [History Last Taken ] ropinirole 2 mg PO QHS 08/08/19 [History Last Taken 01/15/21] acetaminophen 650 mg PO Q6H PRN PRN tablet 08/11/19 [Rx Last Taken Unknown] albuterol sulfate 90 mcg/actuation aerosol inhaler 1 inh INHALATION BID PRN PRN 05/13/20 [History Last Taken 11/21/20] calcium carbonate 500 mg calcium (1,250 mg) tablet 500 mg PO BID 05/13/20 [History Last Taken 01/15/21] fluticasone furoate 100 mcg-vilanterol 25 mcg/dose inhalation powder 2 puff INHALATION DAILY 05/13/20 [History Last Taken 11/22/20] mirabegron 25 mg tablet,extended release 24 hr 25 mg PO BID tab 05/13/20 [History Last Taken 01/15/21] omeprazole 20 mg capsule,delayed release 20 mg PO DAILY cap 05/13/20 [History Last Taken 01/15/21] sennosides 8.6 mg-docusate sodium 50 mg tablet 2 tab PO BID 05/13/20 [History Last Taken 01/15/21] brimonidine 0.15 % eye drops 1 drp OPHTHALMIC BID 07/09/20 [History Last Taken 01/15/21] benztropine 2 mg tablet 2 mg PO BID #60 tab 10/13/20 [Rx Last Taken 01/15/21] oxcarbazepine 600 mg tablet 600 mg PO BID #60 tab 10/13/20 [Rx Last Taken 01/15/21] phenobarbital 32.4 mg tablet 32.4 mg PO BID #60 tab 10/13/20 [Rx Last Taken 01/15/21] cholecalciferol (vitamin D3) 1,250 mcg PO WE 10/20/20 [History Last Taken 01/14/21] multivitamin 1 tab PO 1200 10/20/20 [History Last Taken 01/15/21] methadone 10 mg PO TID 5 Days #15 tab 10/25/20 [Rx Last Taken 01/15/21] ferrous sulfate [FeroSul] 325 mg PO 1200,1700 #60 tab 12/03/20 [Rx Last Taken 01/15/21] ondansetron 4 mg PO Q6H PRN 01/10/21 [History Last Taken Unknown] bisacodyl 10 mg ND DAILY PRN 01/16/21 [History Last Taken 01/10/21] loperamide [Imodium A-D] 2 mg PO Q6H PRN 01/16/21 [History Last Taken Unknown] mineral oil 118 ml ND DAILY PRN 01/16/21 [History Last Taken Unknown] aspirin 81 mg PO 1200 #30 tab 01/21/21 [Rx Last Taken Unknown] atorvastatin 40 mg PO QHS #30 tab 01/21/21 [Rx Last Taken Unknown] magnesium hydroxide [Milk of Magnesia] 5 ml PO DAILY PRN #150 ml 01/21/21 [Rx Last Taken Unknown] midodrine 10 mg PO TID #90 tab 01/21/21 [Rx Last Taken Unknown] nicotine 1 patch TOPICAL DAILY #30 ea 01/21/21 [Rx Last Taken Unknown] nitroglycerin 0.4 mg SUBLINGUAL Q5M PRN #30 tab 01/21/21 [Rx Last Taken Unknown] polyethylene glycol 3350 17 g PO DAILY #0 ea 01/21/21 [Rx Last Taken Unknown] psyllium husk (aspartame) [Metamucil Fiber Singles] 1 packet PO TID #0 ea 01/21/21 [Rx Last Taken Unknown] temazepam 30 mg PO QHS PRN #0 cap 01/21/21 [Rx Last Taken 01/15/21] docusate sodium [Colace] 100 mg PO DAILY #10 cap 01/31/21 [Rx Last Taken Unknown] hydrocortisone [Procto-Med HC] 1 applic ND DAILY PRN #30 g 01/31/21 [Rx Last Taken Unknown] Allergy/AdvReac Type Severity Reaction Status Date / Time codeine Allergy Mild HIVES Verified 01/31/21 11:04 Penicillins Allergy Anaphylaxis Verified 01/31/21 11:04 Family History Mother Diabetes Heart disease Hypertension CAD (coronary artery disease) CVA (cerebral vascular accident) Thyroid disorder Father Colon cancer Surgical History History of bilateral carpal tunnel release History of bilateral cataract extraction History of blepharoplasty History of cystoscopy History of esophagogastroduodenoscopy (EGD) (~03/07/19) History of left heart catheterization (01/16/21) History of right hip replacement History of right salpingo-oophorectomy S/P appendectomy S/P laparoscopic cholecystectomy Status post ORIF of fracture of ankle Social History Smoking Status: Former smoker Tobacco: How many years used: 50 alcohol intake: never substance use type: does not use ROS ROS ED Constitutional Constitutional ED: Denies chills or fever(s) ENT ENT ED: Denies epistaxis Cardiovascular Cardiovascular: Denies chest pain Respiratory/Chest Respiratory/Chest: Denies cough, dyspnea or dyspnea on exertion Gastrointestinal Gastrointestinal: Reports other Details: Rectal pain and bleeding ; Denies abdominal pain, diarrhea, nausea or vomiting Genitourinary Genitourinary ED: Denies dysuria, hematuria or urinary frequency Musculoskeletal Musculoskeletal: Denies back pain or neck pain Integumentary Denies rash Neurologic Neurologic: Denies dizziness, headache(s) or weakness EXAM Physical Exam Const Vital Signs: 01/31/21 11:04 01/31/21 13:08 01/31/21 15:04 Temperature 99.8 F H Temperature Source Oral Pulse Rate 102 H 97 78 Respiratory Rate 18 20 H 16 Blood Pressure 121/79 H 145/97 H 137/88 H Blood Pressure Mean 93 113 104 Pulse Ox 96 98 99 Oxygen Delivery Method Nasal Cannula Room Air Oxygen Flow Rate (L/min) 2 Positive well nourished and well developed Constitutional Narrative: Patient appears uncomfortable and moaning due to pain. General Appearance ED: well developed HEENT Reports normocephalic and head/scalp atraumatic Eyes PERRL and EOMs intact bilaterally Neck supple Chest Wall inspection of chest normal Resp normal respiratory effort and clear to auscultation bilaterally Auscultation: Negative for rales, rhonchi or wheezes Cardio regular rate, regular rhythm and no murmurs GI normal to inspection, nondistended, normoactive bowel sounds and non-tender GI Narrative: Extensive external hemorrhoids present. No obvious thrombosis. No active bleeding at this time. Palpation: soft; Negative for guarding or rebound tenderness present Extremity normal to inspection General Extremety ED: Negative for edema or tenderness General Extremity: Negative for edema Neuro no sensory deficits noted Sensorium / Orientation: alert Motor Exam: strength 5/5 throughout Psych mental status grossly normal Skin no rashes or lesions noted MDM MDM MDM Narrative Medical decision making narrative: Patient presents the ED for rectal pain and bleeding. She does have a hemorrhoid history. On physical exam she does have extensive hemorrhoids without any obvious thrombosis. We will give her a dose of IM morphine for symptomatic treatment. I did speak with patient's son-in-law about patient issues. Patient was agreeable with me talking to him. 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 She saw the patient fall out of the bed after she was in a lot of pain from the rectum. She had a did strike her head and it took her a while to recover. Patient does not remember this completely. We will do a CT scan of the head and basic lab work. CT scan was performed and did not reveal any acute traumatic findings. Lab work does not show the patient to be anemic. She is resting a lot more comfortably after she is given a dose of morphine and lidocaine was applied to the affected area. At this time will discharge home in stable condition. She is given a prescription for Anusol and Colace. She is given a general surgery referral as well. Return precautions are reviewed. She understands and is agreeable this plan. All questions are answered. Lab Data Labs: Laboratory Results - last 24 hr 01/31/21 01/31/21 15:30 15:32 WBC Cancelled Corrected WBC Cancelled RBC Cancelled Hgb Cancelled Hct Cancelled MCV Cancelled MCH Cancelled MCHC Cancelled RDW Std Deviation Cancelled RDW Coeff of Jordin Cancelled Plt Count Cancelled MPV Cancelled Immature Gran % (Auto) Cancelled Neut % (Auto) Cancelled Lymph % (Auto) Cancelled Arthur % (Auto) Cancelled Eos % (Auto) Cancelled Baso % (Auto) Cancelled Absolute Neuts (auto) Cancelled Absolute Lymphs (auto) Cancelled Total Counted Cancelled Neutrophils % (Manual) Cancelled Band Neutrophils % Cancelled Lymphocytes % (Manual) Cancelled Monocytes % (Manual) Cancelled Eosinophils % (Manual) Cancelled Basophils % (Manual) Cancelled Metamyelocytes % Cancelled Myelocytes % Cancelled Promyelocytes % Cancelled Blast Cells % Cancelled Plasma Cell % (Manual) Cancelled Other Cells % Cancelled Nucleated RBC % Cancelled Nucleated RBCs/100 WBC Cancelled Differential Comment Cancelled Diff Path Review Cancelled Hypersegmented Neuts Cancelled Atypical Lymphocytes Cancelled Reactive Lymphocytes Cancelled Smudge Cells Cancelled Toxic Granulation Cancelled Toxic Vacuolation Cancelled Dohle Bodies Cancelled Sunita Rods Cancelled Platelet Estimate Cancelled Plt Morphology Comment Cancelled RBC Morphology Cancelled Polychromasia Cancelled Hypochromasia Cancelled Poikilocytosis Cancelled Basophilic Stippling Cancelled Anisocytosis Cancelled Microcytosis Cancelled Macrocytosis Cancelled Spherocytes Cancelled Sickle Cells Cancelled Target Cells Cancelled Tear Drop Cells Cancelled Ovalocytes Cancelled Stomatocytes Cancelled Vazquez-Lynnwood Bodies Cancelled Jay Cells Cancelled Bite Cells Cancelled Crenated Cell Cancelled Acanthocytes (Spur) Cancelled Rouleaux Cancelled Schistocytes Cancelled Sodium 139 Potassium 3.5 Chloride 108 H Carbon Dioxide 24.0 Anion Gap 7 BUN 8 Creatinine 0.38 L Estim Creat Clear Calc 46.43 Est GFR (MDRD) Af Amer 214 Est GFR (MDRD) Non-Af 177 BUN/Creatinine Ratio 21.1 H Glucose 106 Calcium 9.0 Radiography Diagnostic Testing: Radiology Impression Brain CT 01/31/21 14:00 IMPRESSION: No acute intracranial hemorrhage or mass effect. Electronically Signed: Fabricio Garsia MD ([place]) at 14:56 EDT , Service support , Discharge Plan Triage Chief Complaint: Fall ED Provider: Yunior Cook Dx/Rx/DC Orders Clinical Impression: Hemorrhoids Instructions: ED Hemorrhoids Prescriptions: New docusate sodium [Colace] 100 mg capsule 100 mg PO DAILY Qty: 10 RF: 0 hydrocortisone [Procto-Med HC] 2.5 % cream with perineal applicator 1 applic ND DAILY PRN (Reason: hemorrhoids) Qty: 30 RF: 0 No Action Myrbetriq 25 mg tablet extended release 24 hr 25 mg PO BID RF: 0 omeprazole 20 mg capsule,delayed release(DR/EC) 20 mg PO DAILY RF: 0 sennosides-docusate sodium [Senexon-S] 8.6-50 mg tablet 2 tab PO BID RF: 0 calcium carbonate [Oyster Shell Calcium] 500 mg calcium (1,250 mg) tablet 500 mg PO BID RF: 0 fluticasone furoate-vilanterol 100-25 mcg/dose blister with device 2 puff INHALATION DAILY RF: 0 albuterol sulfate [Ventolin HFA] 90 mcg/actuation HFA aerosol inhaler 1 inh INHALATION BID PRN PRN (Reason: COPD) RF: 0 brimonidine 0.15 % drops 1 drp OPHTHALMIC BID RF: 0 benztropine 2 mg tablet 2 mg PO BID Qty: 60 RF: 3 oxcarbazepine 600 mg tablet 600 mg PO BID Qty: 60 RF: 3 phenobarbital 32.4 mg tablet 32.4 mg PO BID Qty: 60 RF: 3 potassium chloride 20 MEQ tablet 20 meq PO BID RF: 0 levothyroxine 50 MCG tablet 50 mcg PO DAILY RF: 0 duloxetine 20 MG capsule,delayed release(DR/EC) 20 mg PO DAILY RF: 0 mirtazapine 7.5 mg tablet 7.5 mg PO QHS RF: 0 ropinirole 2 MG tablet 2 mg PO QHS RF: 0 acetaminophen 325 MG tablet 650 mg PO Q6H PRN PRN (Reason: Pain Score 1-10/Temp > 100.7 F) RF: 0 multivitamin Tablet 1 tab PO 1200 RF: 0 cholecalciferol (vitamin D3) 1,250 mcg (50,000 unit) capsule 1,250 mcg PO WE RF: 0 methadone 10 mg tablet 10 mg PO TID 5 Days Qty: 15 RF: 0 ferrous sulfate [FeroSul] 325 mg (65 mg iron) Tablet 325 mg PO 1200,1700 Qty: 60 RF: 1 ondansetron 4 mg Tablet,Disintegrating 4 mg PO Q6H PRN (Reason: Nausea) RF: 0 loperamide [Imodium A-D] 2 mg Tablet 2 mg PO Q6H PRN (Reason: Diarrhea) RF: 0 mineral oil Enema 118 ml ND DAILY PRN (Reason: Constipation) RF: 0 bisacodyl 10 mg Suppository 10 mg ND DAILY PRN (Reason: Constipation) RF: 0 atorvastatin 40 mg Tablet 40 mg PO QHS Qty: 30 RF: 0 polyethylene glycol 3350 17 gram Powder In Packet 17 g PO DAILY Qty: 0 RF: 0 nitroglycerin 0.4 mg Tablet, Sublingual 0.4 mg sublingual Q5M PRN (Reason: CHEST PAIN) Qty: 30 RF: 0 Metamucil Fiber Singles 3.4 gram Powder In Packet 1 packet PO TID Qty: 0 RF: 0 aspirin 81 MG tablet,delayed release (DR/EC) 81 mg PO 1200 Qty: 30 RF: 0 temazepam 30 mg Capsule 30 mg PO QHS PRN (Reason: Sleep) Qty: 0 RF: 0 nicotine 21 mg/24 hr patch 24 hour 1 patch TOPICAL DAILY Qty: 30 RF: 0 midodrine 10 mg tablet 10 mg PO TID Qty: 90 RF: 0 magnesium hydroxide [Milk of Magnesia] 400 mg/5 mL suspension 5 ml PO DAILY PRN (Reason: constipation) Qty: 150 RF: 0 Primary Care Provider: Patel Veliz Chi Referrals: Jr Dunlap MD [STAFF PHYSICIAN] - As soon as possible Patel Veliz Chi, MD [Primary Care Provider] - Disposition Disposition: Home, Self Care Discharge Date/Time: 01/31/21 16:48
[2021-01-31] MEDS: Morphine 4 MG/ML Syringe IM (12:18)
[2021-01-31 13:08] VITALS: BP 145/97; PULSE 97; RESP 20; O2SAT 98
[2021-01-31] MEDS: Lidocaine 2% Jelly 1 APPLIC Tube TOPICAL (13:13)
--- NOTE | 2021-01-31 14:00 | CT_ITS ---
STUDY: CT BRAIN WITHOUT CONTRAST REASON FOR EXAM: Female, 70 years old. Fall with LOC RADIATION DOSAGE (If Supplied By Facility): CTDIvol = ( 44.99 ) mGy, DLP = ( 762.36 ) mGycm TECHNIQUE: Transaxial CT imaging of the brain was performed without administration of intravenous contrast material. Individualized dose optimization techniques were used for this CT. COMPARISON: No relevant priors. FINDINGS: Normal soft tissue structures. Normal calvarium. There is mild cerebral atrophy with widening of the extra-axial spaces and ventricular dilatation. There are areas of decreased attenuation within the white matter tracts of the supratentorial brain, consistent with microvascular disease changes. Normal basal ganglia and thalami. Normal brainstem. Normal cerebellum. There is no intracranial hemorrhage. There are no findings of an acute ischemic infarction. Normal visualized paranasal sinuses. CT/Brain/Head without Contrast IMPRESSION: No acute intracranial hemorrhage or mass effect. Electronically Signed: Fabricio Garsia MD ([place]) at 14:56 EDT , Service support ,
[2021-01-31 15:04] VITALS: BP 137/88; PULSE 78; RESP 16; O2SAT 99
[2021-01-31 16:19] LABS: Anion Gap 7 (5-15); BUN 8 mg/dL (7-18); BUN/Creat Ratio 21.1 RATIO (10-20); Chloride 108 mmol/L (98-107); Creatinine, Serum 0.38 mg/dL (0.55-1.02); EST Glomerular Filtration Rate 177 mL/min (>60); Est Glom Filt Rate - Afr Amer 214 mL/min (>60); Estimated Creatinine Clearance 46.43 ml/min; Glucose 106 mg/dL (74-106); Potassium 3.5 mmol/L (3.5-5.1); Sodium Level 139 mmol/L (136-145)
== END 2021-01-31 16:48 | disposition home or self-care (01) ==
PROVIDERS: Emergency Provider Emergency Medicine; PCP Family Medicine Geriatric Medicine
DX: Z04.3 Encounter for examination and observation following other accident (principal); K64.9 Unspecified hemorrhoids; I10 Essential (primary) hypertension; J44.9 Chronic obstructive pulmonary disease, unspecified; G47.33 Obstructive sleep apnea (adult) (pediatric); G40.909 Epilepsy, unspecified, not intractable, without status epilepticus; F32.9 Major depressive disorder, single episode, unspecified; Z79.82 Long term (current) use of aspirin; Z99.81 Dependence on supplemental oxygen; Z79.899 Other long term (current) drug therapy; Z87.891 Personal history of nicotine dependence
CPT/HCPCS: 70450; 80048; 96372; 99284; J7030

== ENCOUNTER 2021-02-01 09:26 | Observation (INO) | payer MEDICARE, MEDICAID, SELFPAY ==
[2021-01-31 11:04] VITALS: BMI 29.0
[2021-02-01] VITALS (11 sets, daily range): BP systolic 123–147; BP diastolic 63–92; PULSE 85–108; RESP 16–27; TEMP 36.4–37.2; O2SAT 96–99; BMI 28.7; BMI 28.5
--- NOTE | 2021-02-01 09:47 | EKG12_ITS ---
Test Reason : Blood Pressure : / mmHG Vent. Rate : 104 BPM Atrial Rate : 104 BPM P-R Int : 164 ms QRS Dur : 084 ms QT Int : 416 ms P-R-T Axes : 077 -31 230 degrees QTc Int : 547 ms Sinus tachycardia Left axis deviation ST & Marked T wave abnormality, consider anterolateral ischemia Prolonged QT Abnormal ECG Confirmed by ROLAN LEACH, LEONELA ([id number]), news copy editor WESLY CASTAÑEDA ([id number]) on 02/03/2021 9:29:44 AM Referred By: Confirmed By:LEONELA GONGORA MD
--- NOTE | 2021-02-01 09:47 | RAD_ITS ---
STUDY: X-RAY CHEST REASON FOR EXAM: Female, 70 years old. Chest pain. TECHNIQUE: Single frontal view of the chest. COMPARISON: 01/16/2021 FINDINGS: Stable mild hyperexpansion with scattered healed granulomatous calcifications. There is no demonstrated pleural abnormality. Stable mild cardiac enlargement Normal mediastinum and denae. Normal visualized pulmonary arteries. Aortic tortuosity with calcification unchanged. Normal visualized thoracic spine. Normal visualized ribs, clavicles, and shoulders. There is no demonstrated abnormality of the visualized soft tissue structures of the upper abdomen. RAD/Chest 1 View (Portable) IMPRESSION: Stable cardiomegaly with mild hyperexpansion. No active or acute cardiopulmonary disease. Electronically Signed: Maximino Whitney MD at 10:35 EDT , Service support ,
[2021-02-01] MEDS: Ipratropium/Albuterol Sulfate 3 ML AMPUL.NEB INHALATION (09:59)
[2021-02-01] MEDS: Albuterol 2.5 MG/3 ML VIAL.NEB. INHALATION (10:01)
--- NOTE | 2021-02-01 10:10 | EDS_ITS ---
HPI History of Present Illness Chief Complaint: Shortness of Breath Informant: patient Narrative Narrative: Patient is a 70-year-old female who presents to the emergency department for shortness of breath. She states that this started around 2 AM last night. She has had episodes like this before in the past. She denies any chest pain or heart palpitations associated with this. She denies any significant cough or fever/chills. She was seen in the emergency department yesterday by myself for hemorrhoid pain and bleeding from her rectum. She also had a fall out of bed which had a negative work-up. Patient still having the hemorrhoid pain. She is not sure if she still having bleeding from her rectum. Her pain is still present. She is saying that she does not remember even being in the hospital yesterday. She did talk to her son who reminded her of this. She denies any leg swelling or calf pain. [facility] Medical History Acute gastritis Anxiety COPD (chronic obstructive pulmonary disease) Degenerative disc disease, lumbar Depression Diverticulosis DVT (deep venous thrombosis) Gastritis Hypertension Hypotension Insomnia Obstructive sleep apnea On home oxygen therapy Pain, chronic Physical debility Restless leg syndrome Seizure disorder Sleep apnea Smoker Spinal stenosis Takotsubo cardiomyopathy Home Medications duloxetine 20 mg PO DAILY 01/07/19 [History Last Taken 01/15/21] levothyroxine 50 mcg PO DAILY 01/07/19 [History Last Taken 11/21/20] potassium chloride 20 meq PO BID 01/07/19 [History Last Taken 01/15/21] mirtazapine 7.5 mg tablet 7.5 mg PO QHS tablet 02/21/19 [History Last Taken 01/15/21] ropinirole 2 mg PO QHS 08/08/19 [History Last Taken 01/15/21] acetaminophen 650 mg PO Q6H PRN PRN tablet 08/11/19 [Rx Last Taken Unknown] albuterol sulfate 90 mcg/actuation aerosol inhaler 1 inh INHALATION BID PRN PRN 05/13/20 [History Last Taken 11/21/20] calcium carbonate 500 mg calcium (1,250 mg) tablet 500 mg PO BID 05/13/20 [History Last Taken 01/15/21] fluticasone furoate 100 mcg-vilanterol 25 mcg/dose inhalation powder 2 puff INHALATION DAILY 05/13/20 [History Last Taken 11/22/20] mirabegron 25 mg tablet,extended release 24 hr 25 mg PO BID tab 05/13/20 [History Last Taken 01/15/21] omeprazole 20 mg capsule,delayed release 20 mg PO DAILY cap 05/13/20 [History Last Taken 01/15/21] sennosides 8.6 mg-docusate sodium 50 mg tablet 2 tab PO BID 05/13/20 [History Last Taken 01/15/21] brimonidine 0.15 % eye drops 1 drp OPHTHALMIC BID 07/09/20 [History Last Taken 01/15/21] benztropine 2 mg tablet 2 mg PO BID #60 tab 10/13/20 [Rx Last Taken 01/15/21] oxcarbazepine 600 mg tablet 600 mg PO BID #60 tab 10/13/20 [Rx Last Taken 01/15/21] phenobarbital 32.4 mg tablet 32.4 mg PO BID #60 tab 10/13/20 [Rx Last Taken 01/15/21] cholecalciferol (vitamin D3) 1,250 mcg PO WE 10/20/20 [History Last Taken 01/14/21] multivitamin 1 tab PO 1200 10/20/20 [History Last Taken 01/15/21] methadone 10 mg PO TID 5 Days #15 tab 10/25/20 [Rx Last Taken 01/15/21] ferrous sulfate [FeroSul] 325 mg PO 1200,1700 #60 tab 12/03/20 [Rx Last Taken 01/15/21] ondansetron 4 mg PO Q6H PRN 01/10/21 [History Last Taken Unknown] bisacodyl 10 mg HI DAILY PRN 01/16/21 [History Last Taken 01/10/21] loperamide [Imodium A-D] 2 mg PO Q6H PRN 01/16/21 [History Last Taken Unknown] mineral oil 118 ml HI DAILY PRN 01/16/21 [History Last Taken Unknown] aspirin 81 mg PO 1200 #30 tab 01/21/21 [Rx Last Taken Unknown] atorvastatin 40 mg PO QHS #30 tab 01/21/21 [Rx Last Taken Unknown] magnesium hydroxide [Milk of Magnesia] 5 ml PO DAILY PRN #150 ml 01/21/21 [Rx Last Taken Unknown] midodrine 10 mg PO TID #90 tab 01/21/21 [Rx Last Taken Unknown] nicotine 1 patch TOPICAL DAILY #30 ea 01/21/21 [Rx Last Taken Unknown] nitroglycerin 0.4 mg SUBLINGUAL Q5M PRN #30 tab 01/21/21 [Rx Last Taken Unknown] polyethylene glycol 3350 17 g PO DAILY #0 ea 01/21/21 [Rx Last Taken Unknown] psyllium husk (aspartame) [Metamucil Fiber Singles] 1 packet PO TID #0 ea 01/21/21 [Rx Last Taken Unknown] temazepam 30 mg PO QHS PRN #0 cap 01/21/21 [Rx Last Taken 01/15/21] docusate sodium [Colace] 100 mg PO DAILY #10 cap 01/31/21 [Rx Last Taken Unknown] hydrocortisone [Procto-Med HC] 1 applic HI DAILY PRN #30 g 01/31/21 [Rx Last Taken Unknown] Allergy/AdvReac Type Severity Reaction Status Date / Time codeine Allergy Mild HIVES Verified 01/31/21 11:04 Penicillins Allergy Anaphylaxis Verified 01/31/21 11:04 Family History Mother Diabetes Heart disease Hypertension CAD (coronary artery disease) CVA (cerebral vascular accident) Thyroid disorder Father Colon cancer Surgical History History of bilateral carpal tunnel release History of bilateral cataract extraction History of blepharoplasty History of cystoscopy History of esophagogastroduodenoscopy (EGD) (~03/07/19) History of left heart catheterization (01/16/21) History of right hip replacement History of right salpingo-oophorectomy S/P appendectomy S/P laparoscopic cholecystectomy Status post ORIF of fracture of ankle Social History Smoking Status: Former smoker Tobacco: How many years used: 50 alcohol intake: never substance use type: does not use ROS ROS ED Constitutional Constitutional ED: Denies chills or fever(s) Eyes Eyes: Denies change in vision ENT ENT ED: Denies epistaxis or rhinorrhea Cardiovascular Cardiovascular: Denies chest pain or palpitations Respiratory/Chest Respiratory/Chest: Reports dyspnea; Denies cough Gastrointestinal Gastrointestinal: Denies abdominal pain, nausea or vomiting Genitourinary Genitourinary ED: Denies dysuria, hematuria or urinary frequency Musculoskeletal Musculoskeletal: Denies back pain or neck pain Integumentary Denies rash Neurologic Neurologic: Denies dizziness, headache(s) or weakness EXAM Physical Exam Const Vital Signs: 02/01/21 09:27 02/01/21 09:30 02/01/21 09:47 Temperature 97.6 F L Temperature Source Oral Pulse Rate 97 Respiratory Rate 17 Respiratory Effort Normal Non-Labored Respiratory Depth Normal Respiratory Pattern Normal Blood Pressure 132/75 H Blood Pressure Mean 94 Pulse Ox 98 96 Oxygen Delivery Method Nasal Cannula Nasal Cannula Nasal Cannula Oxygen Flow Rate (L/min) 2 2 Fraction of Inspired Oxygen (FIO2) 2 02/01/21 10:03 02/01/21 12:32 Temperature Temperature Source Pulse Rate 107 H 99 Respiratory Rate 27 H 18 Respiratory Effort Short of Breath Respiratory Depth Respiratory Pattern Tachypnea Blood Pressure 139/82 H Blood Pressure Mean 101 Pulse Ox 96 99 Oxygen Delivery Method Nasal Cannula Nasal Cannula Oxygen Flow Rate (L/min) 2 2 Fraction of Inspired Oxygen (FIO2) Positive well nourished and well developed General Appearance ED: well developed and NAD HEENT Reports normocephalic, head/scalp atraumatic and moist mucous membranes Eyes PERRL and EOMs intact bilaterally Neck supple General: Negative for tenderness Chest Wall inspection of chest normal Resp normal respiratory effort and clear to auscultation bilaterally Resp Narrative: Mild expiratory wheezes Auscultation: Negative for rales or rhonchi Cardio regular rate, regular rhythm and no murmurs GI normal to inspection, nondistended, normoactive bowel sounds and non-tender Palpation: soft; Negative for guarding or rebound tenderness present Extremity normal to inspection General Extremety ED: Negative for edema or tenderness General Extremity: Negative for edema Neuro CN's II-XII intact bilaterally and no sensory deficits noted Neuro Narrative: Patient is oriented to person place and year but having a difficult time remembering the month. No focal neurological deficits appreciated. Sensorium / Orientation: alert Motor Exam: strength 5/5 throughout Psych mental status grossly normal Skin no rashes or lesions noted MDM MDM MDM Narrative Medical decision making narrative: Patient presents to the emergency department for shortness of breath. On arrival to the emergency department she is satting 98% on 2 L of supplemental oxygen. She does wear oxygen at nighttime. She does have a former smoking history. The rest of her vitals within normal limits. EKG was obtained which showed deep inversions of her T waves in the anterior lateral leads. Compared this to her prior EKGs this is a new finding. She is currently denying any chest pain and denies having any recently. Will check basic lab work and obtain chest x-ray. She will be given a DuoNeb breathing treatment for the wheezing and shortness of breath. Given the patient's T wave changes, mildly elevated troponin CT angio was performed. This did not reveal any evidence of acute cardiopulmonary abnormality including pulmonary embolism. Patient sarika did come to bedside and states that she has been having left arm weakness since sometime last night. Patient does lift her arm for me and has sensation intact but states it does feel heavy to her. She would does move it well otherwise. CT scan was then performed although this was limited as she is already gotten CT contrast for the CTA of the chest. This otherwise was unremarkable. Given patient's multiple issues I do feel she will require hospitalization. I did speak with the hospitalist who requested I speak to the on-call [employer] consultant about her EKG and troponin. They believe that the EKG changes are related to her recent hospitalization stay for Takotsubo cardiomyopathy. Her troponin does appear to be stable from previous lab draws. There was not a significant increase on the delta troponin today. The [employer] consultant states that with the apical ballooning that can develop a thrombus so patient will be admitted for echocardiogram as well as MRI. Patient not a TPA candidate as her symptoms are subjective and there is no objective findings of stroke. She is also not within the window as it occurred sometime yesterday. Her lab work otherwise showed a low potassium and this has been replaced. She has remained stable throughout ED stay. Lab Data Labs: Laboratory Results - last 24 hr 02/01/21 02/01/21 02/01/21 10:30 10:30 10:38 WBC Cancelled Corrected WBC Cancelled RBC Cancelled Hgb Cancelled Hct Cancelled MCV Cancelled MCH Cancelled MCHC Cancelled RDW Std Deviation Cancelled RDW Coeff of Jordin Cancelled Plt Count Cancelled MPV Cancelled Immature Gran % (Auto) Cancelled Neut % (Auto) Cancelled Lymph % (Auto) Cancelled Pettis % (Auto) Cancelled Eos % (Auto) Cancelled Baso % (Auto) Cancelled Absolute Neuts (auto) Cancelled Absolute Lymphs (auto) Cancelled Total Counted Cancelled Neutrophils % (Manual) Cancelled Band Neutrophils % Cancelled Lymphocytes % (Manual) Cancelled Monocytes % (Manual) Cancelled Eosinophils % (Manual) Cancelled Basophils % (Manual) Cancelled Metamyelocytes % Cancelled Myelocytes % Cancelled Promyelocytes % Cancelled Blast Cells % Cancelled Plasma Cell % (Manual) Cancelled Other Cells % Cancelled Nucleated RBC % Cancelled Nucleated RBCs/100 WBC Cancelled Differential Comment Cancelled Diff Path Review Cancelled Hypersegmented Neuts Cancelled Atypical Lymphocytes Cancelled Reactive Lymphocytes Cancelled Smudge Cells Cancelled Toxic Granulation Cancelled Toxic Vacuolation Cancelled Dohle Bodies Cancelled Sunita Rods Cancelled Platelet Estimate Cancelled Plt Morphology Comment Cancelled RBC Morphology Cancelled Polychromasia Cancelled Hypochromasia Cancelled Poikilocytosis Cancelled Basophilic Stippling Cancelled Anisocytosis Cancelled Microcytosis Cancelled Macrocytosis Cancelled Spherocytes Cancelled Sickle Cells Cancelled Target Cells Cancelled Tear Drop Cells Cancelled Ovalocytes Cancelled Stomatocytes Cancelled Vazquez-Horatio Bodies Cancelled [place] Cells Cancelled Bite Cells Cancelled Crenated Cell Cancelled Acanthocytes (Spur) Cancelled Rouleaux Cancelled Schistocytes Cancelled Sodium 137 Potassium 2.9 L Chloride 104 Carbon Dioxide 23.0 Anion Gap 10 BUN 11 Creatinine 0.43 L Estim Creat Clear Calc 46.43 Est GFR (MDRD) Af Amer 186 Est GFR (MDRD) Non-Af 154 BUN/Creatinine Ratio 25.6 H Glucose 123 H Calcium 9.0 Magnesium Troponin I High Sens 76.5 H* Urine Color Yellow Urine Clarity Clear Urine pH 6.0 Ur Specific [place] 1.025 Urine Protein 15 H Urine Glucose (UA) Normal Urine Ketones 150 A* Urine Occult Blood Negative Urine Nitrite Negative Urine Bilirubin Negative Urine Urobilinogen Normal Ur Leukocyte Esterase 25 H Urine RBC 0 SEEN Urine WBC 0-5 SEEN Ur Squamous Epith Cells 0 SEEN Urine Bacteria 0 SEEN Urine Mucus 0 SEEN 02/01/21 02/01/21 02/01/21 11:00 11:00 13:20 WBC 7.6 Corrected WBC RBC 4.06 L Hgb 12.2 Hct 38.1 MCV 93.8 MCH 30.0 MCHC 32.0 RDW Std Deviation 47.2 H RDW Coeff of Jordin 13.9 Plt Count 339 MPV 8.8 Immature Gran % (Auto) 0.100 Neut % (Auto) 60.4 Lymph % (Auto) 31.3 Pettis % (Auto) 6.9 Eos % (Auto) 0.8 Baso % (Auto) 0.5 Absolute Neuts (auto) 4.6 Absolute Lymphs (auto) 2.39 Total Counted Neutrophils % (Manual) Band Neutrophils % Lymphocytes % (Manual) Monocytes % (Manual) Eosinophils % (Manual) Basophils % (Manual) Metamyelocytes % Myelocytes % Promyelocytes % Blast Cells % Plasma Cell % (Manual) Other Cells % Nucleated RBC % 0 Nucleated RBCs/100 WBC Differential Comment Diff Path Review Hypersegmented Neuts Atypical Lymphocytes Reactive Lymphocytes Smudge Cells Toxic Granulation Toxic Vacuolation Dohle Bodies Sunita Rods Platelet Estimate Plt Morphology Comment RBC Morphology Polychromasia Hypochromasia Poikilocytosis Basophilic Stippling Anisocytosis Microcytosis Macrocytosis Spherocytes Sickle Cells Target Cells Tear Drop Cells Ovalocytes Stomatocytes Vazquez-Horatio Bodies Highmount Cells Bite Cells Crenated Cell Acanthocytes (Spur) Rouleaux Schistocytes Sodium Potassium Chloride Carbon Dioxide Anion Gap BUN Creatinine Estim Creat Clear Calc Est GFR (MDRD) Af Amer Est GFR (MDRD) Non-Af BUN/Creatinine Ratio Glucose Calcium Magnesium 2.0 Troponin I High Sens 83.8 H* Urine Color Urine Clarity Urine pH Ur Specific [place] Urine Protein Urine Glucose (UA) Urine Ketones Urine Occult Blood Urine Nitrite Urine Bilirubin Urine Urobilinogen Ur Leukocyte Esterase Urine RBC Urine WBC Ur Squamous Epith Cells Urine Bacteria Urine Mucus Radiography Diagnostic Testing: Radiology Impression Chest X-Ray 02/01/21 09:47 IMPRESSION: Stable cardiomegaly with mild hyperexpansion. No active or acute cardiopulmonary disease. Electronically Signed: Maximino Whitney MD at 10:35 EDT , Service support , Chest CTA 02/01/21 11:17 IMPRESSION: Normal CTA chest examination, without a demonstrated pulmonary embolism or arterial dissection. Electronically Signed: Tomi Coyle MD at 12:54 EDT Tel , Service support , Brain CT 02/01/21 13:15 IMPRESSION: Chronic involutional changes of the brain. Electronically Signed: Tomi Coyle MD at 13:55 EDT Tel , Service support , EKG Initial EKG: Attestation: I personally reviewed and interpreted this EKG as follows: (Rate of 104 bpm sinus tachycardia. Normal axis. There is prolonged QTC. T wave inversions in the anterior lateral leads. No significant ST elevations or depressions.) Discharge Plan Triage Chief Complaint: Shortness of Breath ED Provider: Yunior Cook Dx/Rx/DC Orders Clinical Impression: Dyspnea, Hemorrhoids, Left arm weakness Primary Care Provider: Patel Veliz Chi Disposition Disposition: Home, Self Care
[2021-02-01 10:42] LABS: Bacteria 0 SEEN /hpf (None Seen); Mucous, Urine 0 SEEN /hpf (<or=2+); Red Blood Cells-Urine 0 SEEN /hpf (0-5); Squamous Epithelial Cells - UA 0 SEEN /hpf (5-10)
[2021-02-01 10:45] LABS: Color, Urine Yellow (Yellow); Glucose, Dipstick Normal (Normal); Ketone-Dipstick 150 mg/dl (Negative); Leukocyte Esterase-Dipstick 25 /ul (Negative); Nitrite-Dipstick Negative (Negative); Occult Blood-Urine Negative /ul (Negative); Protein-Dipstick 15 mg/dl (Negative); Specific Gravity, Urine 1.025 (1.002-1.030); Urine Bilirubin Dipstick Negative (Negative); Urine Clarity Clear (Clear); Urine Urobilinogen Normal (Normal)
[2021-02-01 10:55] LABS: White Blood Cells 0-5 SEEN /hpf (0-5)
[2021-02-01 11:03] LABS: Absolute Lymphocyte Count 2.39 X10^3/uL (0.83-4.51); Absolute Neutrophil Count 4.6 X10^3/uL (2.0-7.7); Basophil# 0.04 X10^3/uL; Basophil% 0.5 % (0-1); Eosinophil# 0.06 X10^3/uL; Eosinophils% 0.8 % (0-5); Hematocrit 38.1 % (37-47); Hemoglobin 12.2 g/dL (12.0-15.0); Lymphocyte # 2.39 X10^3/ul (0.83-4.51); Lymphocyte % 31.3 % (19-41); Mean Corpuscular Volume 93.8 fL (81-99); Mean Platelet Vol. 8.8 fl (6.2-12.0); Monocyte# 0.53 X10^3/uL; Monocyte% 6.9 % (0-10); NRBC Flagged by Analyzer 0 % (0-5); Neutrophil # 4.61 X10^3/uL (2.7-7.7); Neutrophil % 60.4 % (47-70); Platelet Count 339 K/mm3 (150-450); RBC Distribution Width CV 13.9 % (11.6-14.6); RBC Distribution Width SD 47.2 fl (35.1-43.9); Red Blood Count 4.06 M/mm3 (4.2-5.4); White Blood Count 7.6 K/mm3 (4.4-11.0)
--- NOTE | 2021-02-01 11:09 | MRI_ITS ---
STUDY: MRI BRAIN WITHOUT CONTRAST REASON FOR EXAM: Female, 70 years old patient with left-sided weakness. TECHNIQUE: Standardized multiplanar fat and water weighted pulse sequences were obtained. COMPARISON: CT of the head dated 02/01/2021. FINDINGS: There is mild cerebral atrophy with widening of the extra-axial spaces and ventricular dilatation. There are a limited number of small white matter hyperintensities, distributed throughout the deep white matter tracts of the cerebral hemispheres, consistent with mild chronic white matter ischemic changes. There is confluent periventricular hyperintensity cloaking the lateral ventricles, consistent with periventricular leukoaraiosis. There is no evidence for recent intracranial ischemia or other cause of cytotoxic edema on diffusion weighted imaging (DWI). Normal T2* images of the brain without demonstrated susceptibility artifact. There is no demonstrated hemosiderin stain. There are prominent perivascular spaces (PVS) involving the basal ganglia. Normal thalami. There is no extra-axial fluid accumulation. Normal flow voids within the major intracranial circulation suggesting patency by spin echo criteria. Normal sella turcica, pituitary gland, infundibular stalk, optic chiasm and hypothalamus. Normal tectal plate and pineal gland. There are chronic white matter ischemic changes of the dominga. The midbrain and medulla are otherwise normal. There are moderate involutional changes of the cerebellum with a large amount of CSF surrounding the cerebellum. There are large basal cisterns. Normal bilateral temporal bones. Normal bilateral internal auditory canals. There are bilateral ocular lens implants with otherwise normal intraorbital contents. Normal visualized paranasal sinuses. Normal calvarium and skull base. Normal visualized soft tissue structures. Normal visualized upper cervical spine. MRI/Brain without Contrast IMPRESSION: 1. Involutional changes of the brain, as described above. 2. No MR evidence for acute infarct. Electronically Signed: Tami Sandoval MD at 13:02 EDT , Service support ,
--- NOTE | 2021-02-01 11:17 | CT_ITS ---
STUDY: CTA CHEST REASON FOR EXAM: Female, 70 years old. SOB, eval for PE RADIATION DOSAGE (If Supplied By Facility): CTDIvol = ( 8.39 ) mGy, DLP = ( 358.32 ) mGycm TECHNIQUE: The examination was performed with the intravenous administration of IV 100mL [id number]. Post-processing of the angiographic images was performed, with multiplanar reformation and 3D reconstruction. Individualized dose optimization techniques were used for this CT. COMPARISON: Chest x-ray earlier today FINDINGS: Normal enhancement of the main pulmonary artery and right and left pulmonary arteries. Normal enhancement of the bilateral peripheral pulmonary arteries. There is no demonstrated pulmonary embolism. Normal thoracic aorta and visualized great vessels. There is no demonstrated aortic dissection. Normal heart and pericardium. Moderate-sized hiatal hernia. Normal mediastinum. Normal hilar regions. Mild diffuse cylindrical bronchiectasis. The lungs are well expanded. Mild emphysematous changes. No noncalcified nodule or mass. Normal pleura. Normal chest wall structures. Normal osseous structures. Normal visualized upper abdomen. CT/CTA Chest W/WO Contrast IMPRESSION: Normal CTA chest examination, without a demonstrated pulmonary embolism or arterial dissection. Electronically Signed: Tomi Coyle MD at 12:54 EDT Tel , Service support ,
[2021-02-01 11:18] LABS: Anion Gap 10 (5-15); BUN 11 mg/dL (7-18); BUN/Creat Ratio 25.6 RATIO (10-20); Chloride 104 mmol/L (98-107); Creatinine, Serum 0.43 mg/dL (0.55-1.02); EST Glomerular Filtration Rate 154 mL/min (>60); Est Glom Filt Rate - Afr Amer 186 mL/min (>60); Estimated Creatinine Clearance 46.43 ml/min; Glucose 123 mg/dL (74-106); Potassium 2.9 mmol/L (3.5-5.1); Sodium Level 137 mmol/L (136-145); Troponin-I HS 76.5 pg/mL (3.0-53.7)
[2021-02-01] MEDS: Potassium Chloride Oral Tablet 20 MEQ 40 MEQ PO ×2 (11:31→18:36)
[2021-02-01] MEDS: Potassium Chloride 10mEq/100mL 10 MEQ/100 ML IV.SOLN. 100 MEQ IV BOLUS (12:31)
--- NOTE | 2021-02-01 13:15 | CT_ITS ---
STUDY: CT BRAIN WITHOUT CONTRAST REASON FOR EXAM: Female, 70 years old. LEft arm heaviness, amnesia PATIENT HAD CONTRAST AT 1153 TODAY WANTED RADIOLOGIST AWARE SO WONT BE CONFUSED WITH BLOOD RADIATION DOSAGE (If Supplied By Facility): CTDIvol = ( 44.99 ) mGy, DLP = ( 745.49 ) mGycm TECHNIQUE: Transaxial CT imaging of the brain was performed without administration of intravenous contrast material. Individualized dose optimization techniques were used for this CT. COMPARISON: 01/31/2021 FINDINGS: Normal soft tissue structures. Normal calvarium. There is mild cerebral atrophy with widening of the extra-axial spaces and ventricular dilatation. There are areas of decreased attenuation within the white matter tracts of the supratentorial brain, consistent with microvascular disease changes. Normal basal ganglia and thalami. Normal brainstem. Normal cerebellum. There is no intracranial hemorrhage. There are no findings of an acute ischemic infarction. Normal visualized paranasal sinuses. CT/Brain/Head without Contrast IMPRESSION: Chronic involutional changes of the brain. Electronically Signed: Tomi Coyle MD at 13:55 EDT Tel , Service support ,
[2021-02-01 13:51] LABS: Troponin-I HS 83.8 pg/mL (3.0-53.7)
--- NOTE | 2021-02-01 14:51 | HP.PCM.HOS_ITS ---
Documented by User: Maryuri Medeiros NP, [address] 02/01/21 16:32 HPI - General General Date of Admission: 02/01/21 HPI Narrative XANDER RAMIREZ, is a 70 F who presents to multiple complaints including shortness of breath, left-sided weakness, fall yesterday, memory loss and hemorrhoidal pain. Patient was evaluated in the emergency room yesterday due to rectal pain and bleeding. She was treated for her hemorrhoidal symptoms and discharged home. Patient's son at bedside reports patient had a fall yesterday onto her left side when the home health aide was present and she has complained of left- sided weakness since that time. Patient states she is unable to recall the events of yesterday afternoon or overnight. She does not remember being in the emergency room. She states she woke up at 2 AM short of breath and continued to feel weak on her left side. She denies cough, fever, chills. She denies speech changes. States her vision is foggy. She states she does not ambulate at baseline and is in a wheelchair or Rollator. She reports left-sided numbness on exam. She denies further bleeding per rectum. She has a past medical history of seizure, COPD with chronic hypoxia respiratory failure, CHUY, restless leg syndrome, hypothyroidism, depression, degenerative disc disease, chronic pain, chronic constipation. [facility] Medical History Acute gastritis Anxiety COPD (chronic obstructive pulmonary disease) Degenerative disc disease, lumbar Depression Diverticulosis DVT (deep venous thrombosis) Gastritis Hypertension Hypotension Insomnia Obstructive sleep apnea On home oxygen therapy Pain, chronic Physical debility Restless leg syndrome Seizure disorder Sleep apnea Smoker Spinal stenosis Takotsubo cardiomyopathy Home Medications duloxetine 20 mg PO DAILY 01/07/19 [History Last Taken 01/15/21] levothyroxine 50 mcg PO DAILY 01/07/19 [History Last Taken 11/21/20] potassium chloride 20 meq PO BID 01/07/19 [History Last Taken 01/15/21] mirtazapine 7.5 mg tablet 7.5 mg PO QHS tablet 02/21/19 [History Last Taken 01/15/21] ropinirole 2 mg PO QHS 08/08/19 [History Last Taken 01/15/21] acetaminophen 650 mg PO Q6H PRN PRN tablet 08/11/19 [Rx Last Taken Unknown] albuterol sulfate 90 mcg/actuation aerosol inhaler 1 inh INHALATION BID PRN PRN 05/13/20 [History Last Taken 11/21/20] calcium carbonate 500 mg calcium (1,250 mg) tablet 500 mg PO BID 05/13/20 [History Last Taken 01/15/21] fluticasone furoate 100 mcg-vilanterol 25 mcg/dose inhalation powder 2 puff INHALATION DAILY 05/13/20 [History Last Taken 11/22/20] mirabegron 25 mg tablet,extended release 24 hr 25 mg PO BID tab 05/13/20 [History Last Taken 01/15/21] omeprazole 20 mg capsule,delayed release 20 mg PO DAILY cap 05/13/20 [History Last Taken 01/15/21] sennosides 8.6 mg-docusate sodium 50 mg tablet 2 tab PO BID 05/13/20 [History Last Taken 01/15/21] brimonidine 0.15 % eye drops 1 drp OPHTHALMIC BID 07/09/20 [History Last Taken 01/15/21] benztropine 2 mg tablet 2 mg PO BID #60 tab 10/13/20 [Rx Last Taken 01/15/21] oxcarbazepine 600 mg tablet 600 mg PO BID #60 tab 10/13/20 [Rx Last Taken 01/15/21] phenobarbital 32.4 mg tablet 32.4 mg PO BID #60 tab 10/13/20 [Rx Last Taken 01/15/21] cholecalciferol (vitamin D3) 1,250 mcg PO WE 10/20/20 [History Last Taken 01/14/21] multivitamin 1 tab PO 1200 10/20/20 [History Last Taken 01/15/21] methadone 10 mg PO TID 5 Days #15 tab 10/25/20 [Rx Last Taken 01/15/21] ferrous sulfate [FeroSul] 325 mg PO 1200,1700 #60 tab 12/03/20 [Rx Last Taken 01/15/21] ondansetron 4 mg PO Q6H PRN 01/10/21 [History Last Taken Unknown] bisacodyl 10 mg IL DAILY PRN 01/16/21 [History Last Taken 01/10/21] loperamide [Imodium A-D] 2 mg PO Q6H PRN 01/16/21 [History Last Taken Unknown] mineral oil 118 ml IL DAILY PRN 01/16/21 [History Last Taken Unknown] aspirin 81 mg PO 1200 #30 tab 01/21/21 [Rx Last Taken Unknown] atorvastatin 40 mg PO QHS #30 tab 01/21/21 [Rx Last Taken Unknown] magnesium hydroxide [Milk of Magnesia] 5 ml PO DAILY PRN #150 ml 01/21/21 [Rx Last Taken Unknown] midodrine 10 mg PO TID #90 tab 01/21/21 [Rx Last Taken Unknown] nicotine 1 patch TOPICAL DAILY #30 ea 01/21/21 [Rx Last Taken Unknown] nitroglycerin 0.4 mg SUBLINGUAL Q5M PRN #30 tab 01/21/21 [Rx Last Taken Unknown] polyethylene glycol 3350 17 g PO DAILY #0 ea 01/21/21 [Rx Last Taken Unknown] psyllium husk (aspartame) [Metamucil Fiber Singles] 1 packet PO TID #0 ea 01/21/21 [Rx Last Taken Unknown] temazepam 30 mg PO QHS PRN #0 cap 01/21/21 [Rx Last Taken 01/15/21] docusate sodium [Colace] 100 mg PO DAILY #10 cap 01/31/21 [Rx Last Taken Unknown] hydrocortisone [Procto-Med HC] 1 applic [place] DAILY PRN #30 g 01/31/21 [Rx Last Taken Unknown] Allergy/AdvReac Type Severity Reaction Status Date / Time codeine Allergy Mild HIVES Verified 01/31/21 11:04 Penicillins Allergy Anaphylaxis Verified 01/31/21 11:04 Family History (Reviewed 02/01/21 @ 16:26 by Maryuri Medeiros [address], [address]) Mother Diabetes Heart disease Hypertension CAD (coronary artery disease) CVA (cerebral vascular accident) Thyroid disorder Father Colon cancer Surgical History (Reviewed 02/01/21 @ 16:26 by Maryuri Medeiros [address], [address]) History of bilateral carpal tunnel release History of bilateral cataract extraction History of blepharoplasty History of cystoscopy History of esophagogastroduodenoscopy (EGD) (~03/07/19) History of left heart catheterization (01/16/21) History of right hip replacement History of right salpingo-oophorectomy S/P appendectomy S/P laparoscopic cholecystectomy Status post ORIF of fracture of ankle Social History (Reviewed 02/01/21 @ 16:26 by Maryuri Medeiros [address], [address]) household members: none housing: apartment pets and animals: Yes (cat) pets and animals: cat(s) Smoking Status: Former smoker Tobacco: How many years used: 50 alcohol intake: never substance use type: does not use well-balanced diet: rarely or never do you feel safe at home: Yes ROS Constitutional Constitutional: Denies change in weight, chills, fatigue or fever(s) Cardiovascular Cardiovascular: Denies chest pain, edema, lightheadedness, palpitations or syncope Respiratory/Chest Respiratory/Chest: Reports shortness of breath at rest; Denies cough, productive cough or wheezing Gastrointestinal Gastrointestinal: Reports constipation and other Details: Hemorrhoidal pain ; Denies abdominal pain, diarrhea, nausea or vomiting Genitourinary Genitourinary: Denies burning urination, difficulty urinating, dysuria, song turia, urinary frequency, urinary incontinence or urinary urgency Musculoskeletal Musculoskeletal: Denies back pain, joint pain or muscle weakness Integumentary Integumentary: Denies erythema, lesions, rash or wounds Neurologic Neurologic: Reports numbness and other Details: Left-sided numbness and weakness ; Denies abnormal speech, confusion, dizziness, paresthesias, seizure-like activity or syncope Psychiatric Psychiatric: Reports depression; Denies anxiety Hematologic/Lymphatic Hematologic/Lymphatic: Denies anemia, easy bleeding or easy bruising Allergic/Immunologic Allergic/Immunologic: Denies hives or asthma Vital Signs Vital Signs Vital Signs: 02/01/21 09:27 02/01/21 09:30 02/01/21 09:47 Temperature 97.6 F L Temperature Source Oral Pulse Rate 97 Respiratory Rate 17 Respiratory Effort Normal Non-Labored Respiratory Depth Normal Respiratory Pattern Normal Blood Pressure 132/75 H Blood Pressure Mean 94 Pulse Ox 98 96 Oxygen Delivery Method Nasal Cannula Nasal Cannula Nasal Cannula Oxygen Flow Rate (L/min) 2 2 Fraction of Inspired Oxygen (FIO2) 2 02/01/21 10:03 02/01/21 12:32 Temperature Temperature Source Pulse Rate 107 H 99 Respiratory Rate 27 H 18 Respiratory Effort Short of Breath Respiratory Depth Respiratory Pattern Tachypnea Blood Pressure 139/82 H Blood Pressure Mean 101 Pulse Ox 96 99 Oxygen Delivery Method Nasal Cannula Nasal Cannula Oxygen Flow Rate (L/min) 2 2 Fraction of Inspired Oxygen (FIO2) Weight Weight: 172 lb 6.424 oz Body Mass Index (BMI) 28.7 Physical Exam Const alert, oriented x3 and no apparent distress Orientation / Consciousness: awake, oriented to person, oriented to place and oriented to time HEENT normocephalic Mouth: dry mucous membranes Eyes PERRL, EOMs intact bilaterally and conjunctivae normal Neck no lymphadenopathy Resp clear to auscultation bilaterally Auscultation: diminished lung sounds Cardio regular rate, regular rhythm and no murmurs Peripheral Pulses: pulses 2+ throughout GI normal to inspection, nondistended, normoactive bowel sounds, non-tender and non-distended Extremity normal to inspection Skin no rashes or lesions noted Skin Narrative: Left shoulder area ecchymosis. Lesions: no lesions Rashes: no rashes Trauma: no lacerations or abrasions Neuro CN's II-XII intact bilaterally, no focal motor deficits, no sensory deficits noted and deep tendon reflexes 2+ bilaterally Neuro Narrative: Neuro exam inconsistent however general mild left-sided weakness and subjective left-sided sensory deficit. Psych mental status grossly normal and affect normal Results Lab / Micro Data Result Diagrams: 02/01/21 11:00 02/01/21 10:30 Labs: Laboratory Results - last 24 hr 02/01/21 10:30: WBC Cancelled, Corrected WBC Cancelled, RBC Cancelled, Hgb Cancelled, Hct Cancelled, MCV Cancelled, MCH Cancelled, MCHC Cancelled, RDW Std Deviation Cancelled, RDW Coeff of Jordin Cancelled, Plt Count Cancelled, MPV Cancelled, Immature Gran % (Auto) Cancelled, Neut % (Auto) Cancelled, Lymph % (Auto) Cancelled, [place] % (Auto) Cancelled, Eos % (Auto) Cancelled, Baso % (Auto) Cancelled, Absolute Neuts (auto) Cancelled, Absolute Lymphs (auto) Cancelled, Total Counted Cancelled, Neutrophils % (Manual) Cancelled, Band Neutrophils % Cancelled, Lymphocytes % (Manual) Cancelled, Monocytes % (Manual) Cancelled, Eosinophils % (Manual) Cancelled, Basophils % (Manual) Cancelled, Metamyelocytes % Cancelled, Myelocytes % Cancelled, Promyelocytes % Cancelled, Blast Cells % Cancelled, Plasma Cell % (Manual) Cancelled, Other Cells % Cancelled, Nucleated RBC % Cancelled, Nucleated RBCs/100 WBC Cancelled, Differential Comment Cancelled, Diff Path Review Cancelled, Hypersegmented Neuts Cancelled, Atypical Lymphocytes Cancelled, Reactive Lymphocytes Cancelled, Smudge Cells Cancelled, Toxic Granulation Cancelled, Toxic Vacuolation Cancelled, Dohle Bodies Cancelled, Sunita Rods Cancelled, Platelet Estimate Cancelled, Plt Morphology Comment Cancelled, RBC Morphology Cancelled, Polychromasia Cancelled, Hypochromasia Cancelled, Poikilocytosis Cancelled, Basophilic Stippling Cancelled, Anisocytosis Cancelled, Microcytosis Cancelled, Macrocytosis Cancelled, Spherocytes Cancelled, Sickle Cells Cancelled, Target Cells Cancelled, Tear Drop Cells Cancelled, Ovalocytes Cancelled, Stomatocytes Cancelled, Vazquez-[place] Bodies Cancelled, Jay Cells Cancelled, Bite Cells Cancelled, Crenated Cell Cancelled, Acanthocytes (Spur) Cancelled, Rouleaux Cancelled, Schistocytes Cancelled 02/01/21 10:30: Sodium 137, Potassium 2.9 L, Chloride 104, Carbon Dioxide 23.0, Anion Gap 10, BUN 11, Creatinine 0.43 L, Estim Creat Clear Calc 46.43, Est GFR (MDRD) Af Amer 186, Est GFR (MDRD) Non-Af 154, BUN/Creatinine Ratio 25.6 H, Glucose 123 H, Calcium 9.0, Troponin I High Sens 76.5 H* 02/01/21 10:38: Urine Color Yellow, Urine Clarity Clear, Urine pH 6.0, Ur Specific [place] 1.025, Urine Protein 15 H, Urine Glucose (UA) Normal, Urine Ketones 150 A*, Urine Occult Blood Negative, Urine Nitrite Negative, Urine Bilirubin Negative, Urine Urobilinogen Normal, Ur Leukocyte Esterase 25 H, Urine RBC 0 SEEN, Urine WBC 0-5 SEEN, Ur Squamous Epith Cells 0 SEEN, Urine Bacteria 0 SEEN, Urine Mucus 0 SEEN 02/01/21 11:00: WBC 7.6, RBC 4.06 L, Hgb 12.2, Hct 38.1, MCV 93.8, MCH 30.0, MCHC 32.0, RDW Std Deviation 47.2 H, RDW Coeff of Jordin 13.9, Plt Count 339, MPV 8.8, Immature Gran % (Auto) 0.100, Neut % (Auto) 60.4, Lymph % (Auto) 31.3, [place] % (Auto) 6.9, Eos % (Auto) 0.8, Baso % (Auto) 0.5, Absolute Neuts (auto) 4.6, Absolute Lymphs (auto) 2.39, Nucleated RBC % 0 02/01/21 11:00: Magnesium 2.0 02/01/21 13:20: Troponin I High Sens 83.8 H* Radiology Impression Chest X-Ray 02/01/21 09:47 IMPRESSION: Stable cardiomegaly with mild hyperexpansion. No active or acute cardiopulmonary disease. Electronically Signed: Maximino Whitney MD at 10:35 EDT , Service support , Chest CTA 02/01/21 11:17 IMPRESSION: Normal CTA chest examination, without a demonstrated pulmonary embolism or arterial dissection. Electronically Signed: Tomi Coyle MD at 12:54 EDT Tel , Service support , Brain CT 02/01/21 13:15 IMPRESSION: Chronic involutional changes of the brain. Electronically Signed: Tomi Coyle MD at 13:55 EDT Tel , Service support , Assessment & Plan Assessment/Plan (1) Fall: (2) Debility: PLAN: 1. Left-sided weakness-rule out CVA. Patient has chronic debility/weakness however reports new symptoms. Brain CT with chronic changes. Obtain MRI of brain, MRA of head and neck. Aspirin, statin. PT/OT/ST. Patient had recent echo 01/17/2021, will not repeat at this time. 2. Hemorrhoidal pain/chronic constipation-continue bowel regimen. Patient has follow-up with general surgery as outpatient for hemorrhoid evaluation. 3. Seizure history-continue home medications. 4. COPD with chronic hypoxic respiratory failure-on baseline home O2. Chest CTA on admission unremarkable. 5. CHUY-continue PAP regimen. 6. Restless leg syndrome 7. Hypothyroidism-continue Synthroid. 8. Depression-continue home medications. 9. Degenerative disc disease/chronic pain-on methadone. 10. Stress bladder incontinence-continue home medications. 11. Tobacco dependence-encouraged cessation. Nicotine replacement patch. DVT prophylaxis-Lovenox subcu This patient was seen by Maryuri Medeiros NP-C under the supervision of Dr. King. Documented by User: Dr. Carol King DO 02/01/21 17:06 HPI - General General Date of Admission: 02/01/21 Date of Service: 02/01/21 Chief Complaint: SOB HPI Narrative This patient was seen in conjunction with Maryuri Medeiros NP. The following represents my independent history and physical examination. Please see below for any addendum to the above. Ms. Ramirez is a 70-year-old white female who presented to the emergency department with shortness of breath. She reports that approximately 2 AM last night she woke up from sleeping with acute onset of shortness of breath. She wears 2 L nasal cannula at baseline. She denied any chest pain or palpitations associated with her shortness of breath and has had no chest pain at this time. She evidently presented to the emergency department yesterday for hemorrhoid pain which has been an ongoing issue for her she states she has an appointment with Dr. Dunlap. She also evidently had a fall out of bed yesterday but had negative imaging at that time. She currently is complaining of some left-sided weakness upper and lower extremity with sensory changes on the left side and left facial numbness although this ported until the exam was initiated. She had a recent admission in which she was diagnosed with Takotsubo cardiomyopathy. Her vital signs are stable. And her oxygenation is 99% on her baseline 2 L nasal cannula. Her CBC is unremarkable. Her BMP shows mild hypokalemia with potassium of 2.9 but was otherwise unremarkable. Her initial troponin was 76.5 on repeat it was 83.8. Both of these values are less than they had been at the end of December when she was admitted for her Takotsubo cardiomyopathy. The case was discussed with Dr. Moss and there is no intent to repeat imaging as she had a recent left heart cath which showed nonobstructive coronary disease and an EF of 35 to 40%. She will be admitted as observation to PCU for stroke rule out and repeat echocardiogram given her depressed EF to rule out apical thrombus. [facility] Medical History Acute gastritis Anxiety COPD (chronic obstructive pulmonary disease) Degenerative disc disease, lumbar Depression Diverticulosis DVT (deep venous thrombosis) Gastritis Hypertension Hypotension Insomnia Obstructive sleep apnea On home oxygen therapy Pain, chronic Physical debility Restless leg syndrome Seizure disorder Sleep apnea Smoker Spinal stenosis Takotsubo cardiomyopathy Home Medications duloxetine 20 mg PO DAILY 01/07/19 [History Last Taken 01/15/21] levothyroxine 50 mcg PO DAILY 01/07/19 [History Last Taken 11/21/20] potassium chloride 20 meq PO BID 01/07/19 [History Last Taken 01/15/21] mirtazapine 7.5 mg tablet 7.5 mg PO QHS tablet 02/21/19 [History Last Taken 01/15/21] ropinirole 2 mg PO QHS 08/08/19 [History Last Taken 01/15/21] acetaminophen 650 mg PO Q6H PRN PRN tablet 08/11/19 [Rx Last Taken Unknown] albuterol sulfate 90 mcg/actuation aerosol inhaler 1 inh INHALATION BID PRN PRN 05/13/20 [History Last Taken 11/21/20] calcium carbonate 500 mg calcium (1,250 mg) tablet 500 mg PO BID 05/13/20 [History Last Taken 01/15/21] fluticasone furoate 100 mcg-vilanterol 25 mcg/dose inhalation powder 2 puff INHALATION DAILY 05/13/20 [History Last Taken 11/22/20] mirabegron 25 mg tablet,extended release 24 hr 25 mg PO BID tab 05/13/20 [History Last Taken 01/15/21] omeprazole 20 mg capsule,delayed release 20 mg PO DAILY cap 05/13/20 [History Last Taken 01/15/21] sennosides 8.6 mg-docusate sodium 50 mg tablet 2 tab PO BID 05/13/20 [History Last Taken 01/15/21] brimonidine 0.15 % eye drops 1 drp OPHTHALMIC BID 07/09/20 [History Last Taken 01/15/21] benztropine 2 mg tablet 2 mg PO BID #60 tab 10/13/20 [Rx Last Taken 01/15/21] oxcarbazepine 600 mg tablet 600 mg PO BID #60 tab 10/13/20 [Rx Last Taken 01/15/21] phenobarbital 32.4 mg tablet 32.4 mg PO BID #60 tab 10/13/20 [Rx Last Taken 01/15/21] cholecalciferol (vitamin D3) 1,250 mcg PO WE 10/20/20 [History Last Taken ] multivitamin 1 tab PO 1200 10/20/20 [History Last Taken 01/15/21] methadone 10 mg PO TID 5 Days #15 tab 10/25/20 [Rx Last Taken 01/15/21] ferrous sulfate [FeroSul] 325 mg PO 1200,1700 #60 tab 12/03/20 [Rx Last Taken 01/15/21] ondansetron 4 mg PO Q6H PRN 01/10/21 [History Last Taken Unknown] bisacodyl 10 mg IL DAILY PRN 01/16/21 [History Last Taken 01/10/21] loperamide [Imodium A-D] 2 mg PO Q6H PRN 01/16/21 [History Last Taken Unknown] mineral oil 118 ml IL DAILY PRN 01/16/21 [History Last Taken Unknown] aspirin 81 mg PO 1200 #30 tab 01/21/21 [Rx Last Taken Unknown] atorvastatin 40 mg PO QHS #30 tab 01/21/21 [Rx Last Taken Unknown] magnesium hydroxide [Milk of Magnesia] 5 ml PO DAILY PRN #150 ml 01/21/21 [Rx Last Taken Unknown] midodrine 10 mg PO TID #90 tab 01/21/21 [Rx Last Taken Unknown] nicotine 1 patch TOPICAL DAILY #30 ea 01/21/21 [Rx Last Taken Unknown] nitroglycerin 0.4 mg SUBLINGUAL Q5M PRN #30 tab 01/21/21 [Rx Last Taken Unknown] polyethylene glycol 3350 17 g PO DAILY #0 ea 01/21/21 [Rx Last Taken Unknown] psyllium husk (aspartame) [Metamucil Fiber Singles] 1 packet PO TID #0 ea 01/21/21 [Rx Last Taken Unknown] temazepam 30 mg PO QHS PRN #0 cap 01/21/21 [Rx Last Taken 01/15/21] docusate sodium [Colace] 100 mg PO DAILY #10 cap 01/31/21 [Rx Last Taken Unknown] hydrocortisone [Procto-Med HC] 1 applic IL DAILY PRN #30 g 01/31/21 [Rx Last Taken Unknown] Allergy/AdvReac Type Severity Reaction Status Date / Time codeine Allergy Mild HIVES Verified 01/31/21 11:04 Penicillins Allergy Anaphylaxis Verified 01/31/21 11:04 Family History (Reviewed 02/01/21 @ 16:26 by Maryuri Medeiros [address], [address]) Mother Diabetes Heart disease Hypertension CAD (coronary artery disease) CVA (cerebral vascular accident) Thyroid disorder Father Colon cancer Surgical History History of bilateral carpal tunnel release History of bilateral cataract extraction History of blepharoplasty History of cystoscopy History of esophagogastroduodenoscopy (EGD) (~03/07/19) History of left heart catheterization (01/16/21) History of right hip replacement History of right salpingo-oophorectomy S/P appendectomy S/P laparoscopic cholecystectomy Status post ORIF of fracture of ankle Social History household members: none housing: apartment pets and animals: Yes (cat) pets and animals: cat(s) Smoking Status: Former smoker Tobacco: How many years used: 50 alcohol intake: never substance use type: does not use well-balanced diet: rarely or never do you feel safe at home: Yes ROS Constitutional Constitutional: Denies anorexia, change in weight, chills, fatigue, fever(s), malaise, night sweats, weakness or other Eyes Eyes: Denies blurry vision, change in eye color, change in vision, discharge from eye(s), double vision, erythema, eye pain, loss of vision or other ENT HEENT: Denies abnormal hearing, dysphagia, ear pain, epistaxis, headache(s), hearing loss, nasal congestion, nasal discharge, post nasal drip, sinus pressure, sore throat or other Cardiovascular Cardiovascular: Denies chest pain, claudication, dyspnea on exertion, edema, lightheadedness, orthopnea, palpitations, paroxysmal nocturnal dyspnea, rapid heart rate, syncope or other Respiratory/Chest Respiratory/Chest: Reports shortness of breath at rest and shortness of breath with exertion; Denies cough, dyspnea, excessive phlegm production, hemoptysis, productive cough, wheezing or other Gastrointestinal Gastrointestinal: Reports other Details: Hemorrhoids ; Denies abdominal pain, coffee ground emesis, constipation, diarrhea, dyspepsia, hematemesis, hematochezia, loose stools, melena, nausea or vomiting Genitourinary Genitourinary: Denies burning urination, difficulty urinating, dysuria, hematuria, nocturia, urinary frequency, urinary hesitancy, urinary incontinence, urinary urgency or other Musculoskeletal Musculoskeletal: Reports arthralgias, back pain, joint pain and joint stiffness; Denies joint swelling, myalgias, neck pain or other Neurologic Neurologic: Reports abnormal gait, confusion, focal weakness, numbness and paresthesias; Denies abnormal speech, disequilibrium, dizziness, headache(s), seizure-like activity, seizures, syncope, tingling, tremor(s) or other Psychiatric Psychiatric: Denies anxiety, depression, homicidal ideation, suicidal ideation or other Endocrine Endocrinology: Denies change in body appearance, cold intolerance, excessive sweating, heat intolerance, polydipsia, polyuria or other Hematologic/Lymphatic Hematologic/Lymphatic: Denies anemia, easy bleeding, easy bruising, lymphadenopathy or other Allergic/Immunologic Allergic/Immunologic: Denies rhinitis, hives, eczemia, asthma or other Physical Exam Const alert, oriented x3 and no apparent distress Constitutional Narrative: Elderly white female who appears much older than stated age, lying in right side lying in the bed, son and his partner at the bedside, patient appears comfortable she seems agitated that she still in the emergency department General Appearance: cooperative HEENT normocephalic, head/scalp atraumatic, hearing grossly normal bilaterally, moist oral mucous membranes and oropharynx normal HEENT Narrative: Poor dentition Mouth: oral and palatal mucosa normal Eyes PERRL, EOMs intact bilaterally and conjunctivae normal Neck no lymphadenopathy, supple, no JVD and no carotid bruits Neck Narrative: Trachea midline, thyroid without enlargement no nodules noted Resp normal respiratory effort, no retractions, no use of accessory muscles and clear to auscultation bilaterally Auscultation: Negative for crackles, rales, rhonchi or wheezes Cardio regular rate, regular rhythm, S1 normal heart sound, S2 normal heart sound, no murmurs, no rub, no gallops, no clicks and no JVD GI normal to inspection, nondistended, normoactive bowel sounds, soft to palpation, non-tender and non-distended Extremity normal to inspection and no clubbing, cyanosis or edema Extremity Narrative: Right knee appears arthritic Peripheral Pulses: Yes pulses 2+ throughout Skin no rashes or lesions noted, no wounds, skin turgor normal, no jaundice, no petechiae and no mottling Skin Narrative: Skin is pale, some superficial abrasions on left side of face and left shoulders, ecchymosis on left shoulder Neuro oriented x3 Neuro Narrative: Patient reports sensory changes in the left face in all 3 branches of the trigeminal nerve, sensory exam with superficial touch reveals complete left-sided sensory deficits upper and lower extremities-pain and temperature not assessed, strength exam was very inconsistent as patient was intermittently able to move extremities on the left when attention was diverted without difficulty but when specifically examined she demonstrated weakness, reflexes were 2+ bilateral upper and lower extremities, no clonus, Babinski normal, cranial nerves normal other than trigeminal nerve sensation on the left Sensorium / Orientation: awake and alert Speech: speech normal Psych affect normal Results Lab / Micro Data Attestation: I reviewed the patient's lab results. Result Diagrams: 02/01/21 11:00 02/01/21 10:30 Assessment & Plan Assessment/Plan (1) Left arm weakness: (2) Grade III hemorrhoids: (3) Paresthesias: PLAN: Assessment: Left-sided weakness -Exam is inconsistent Left-sided numbness Takotsubo cardiomyopathy -EF 35 to 40% Grade 3 hemorrhoids Seizure history Chronic hypoxic respiratory failure -Home O2 baseline 2 L COPD CHUY Restless leg Hypothyroidism Depression DJD/chronic pain Stress incontinence Tobacco abuse Plan: -Admit as observation to PCU -Stroke rule out with MRI tomorrow -Repeat echocardiogram to rule apical thrombus with recent diagnosis of Takotsubo cardiomyopathy -Case discussed with Dr. Moss -Potassium replacement -Mag level pending -Jorge BMP in a.m. -Continue home medications as appropriate -Family was requesting patient to be seen by general surgery during admission for her hemorrhoids -Hemoglobin stable -Recommended outpatient follow-up Charges/Coding Visit Charges Inpatient E&M: 34588 Init Hosp L3
--- NOTE | 2021-02-01 17:10 | ECHOD_ITS ---
Reason For Study: CHF, R/O LV thrombus Procedure This was a limited 2D transthoracic echocardiogram. The study was technically difficult. Patient scanned sitting up due to nausea. Limited views were obtained. Exam performed portable in patient room. Left Ventricle Segmental dysfunction with preserved ejection fraction (see wall motion). The estimated ejection fraction is 55 %. Mid-Anterior : Hypokinetic. Mid-Inferior: Hypokinetic. [place] : Hypokinetic. Right Ventricle Normal RV size. Normal systolic function. Atria Normal left atrium. Normal right atrium. Mitral Valve There is no mitral annular calcification. Normal mitral valve. Tricuspid Valve Normal tricuspid valve. Aortic Valve The aortic valve is not well visualized. Pulmonic Valve The pulmonic valve is not well visualized. Pericardium/Pleural No pericardial effusion. MMode/2D Measurements & Calculations LVAd ap4: 22.5 cm2 LVAd ap2: 17.9 cm2 SV(MOD-sp4): 37.1 ml LVLd ap4: 6.9 cm LVLd ap2: 6.5 cm EDV(MOD-sp4): 62.6 ml EDV(MOD-sp2): 43.4 ml EDV(sp4-el): 62.3 ml EDV(sp2-el): 41.9 ml LVAs ap4: 13.6 cm2 LVAs ap2: 11.3 cm2 LVLs ap4: 6.1 cm LVLs ap2: 6.0 cm ESV(MOD-sp4): 25.5 ml ESV(MOD-sp2): 18.7 ml ESV(sp4-el): 25.6 ml ESV(sp2-el): 17.9 ml EF(MOD-sp4): 59.3 % EF(MOD-sp2): 56.8 % EF(sp4-el): 58.8 % SV(MOD-sp2): 24.6 ml SV(sp4-el): 36.7 ml ECHO/Echo, Limited Study Interpretation Summary The study was technically difficult. Limited views were obtained. Segmental dysfunction with preserved ejection fraction (see wall motion). The estimated ejection fraction is 55 %. Comment: no obvious intracardiac mass lesion / thrombus identified. Ordering Physician: Carol King Referring Physician: Patel Veliz Chi Performed By: Sarahi Falcon RDCS
[2021-02-01 17:20] LABS: Troponin-I HS 82.4 pg/mL (3.0-53.7)
[2021-02-01] MEDS: Ferrous Sulfate 325 MG Tablet PO (20:57)
[2021-02-01] MEDS: BRIMONIDINE 0.15% 5 ML Bottle 1 DRP OPHTHALMIC (20:57)
[2021-02-01] MEDS: Atorvastatin Calcium 40 MG Tablet PO (20:58)
[2021-02-01] MEDS: Potassium Chloride Oral Tablet 20 MEQ PO (20:58)
[2021-02-01] MEDS: Benztropine 2 MG Tablet PO (20:58)
[2021-02-01] MEDS: Pramipexole Di-HCl 1 MG Tablet PO (20:59)
[2021-02-01] MEDS: Mirabegron 25 MG TAB.ER.24H PO (20:59)
[2021-02-01] MEDS: OXcarbazepine 600 MG Tablet PO (20:59)
[2021-02-01] MEDS: Mirtazapine 15 MG Tablet 7.5 MG PO (20:59)
[2021-02-01] MEDS: Psyllium 1 PACKET PO (20:59)
[2021-02-01] MEDS: Methadone 10 MG Tablet PO (20:59)
[2021-02-01] MEDS: Phenobarbital 32.4 MG Tablet PO (20:59)
[2021-02-01] MEDS: Senna/Docusate Sodium 1 Tablet 2 TABLET PO (20:59)
[2021-02-02] VITALS (11 sets, daily range): BP systolic 97–158; BP diastolic 52–103; PULSE 83–109; RESP 18–20; TEMP 36.4–37.2; O2SAT 95–100; BMI 28.5
[2021-02-02] MEDS: Ondansetron 4 MG/2 ML Vial IV ×2 (04:59→20:44)
[2021-02-02] MEDS: 0.9% Saline Lock 10 ML Syringe IV ×2 (05:00→07:06)
[2021-02-02] MEDS: Enoxaparin 40 MG/0.4 ML Syringe SC (06:12)
[2021-02-02] MEDS: Metoclopramide 10 MG/2 ML Vial 5 MG IV (06:53)
[2021-02-02 07:08] LABS: Anion Gap 5 (5-15); BUN 16 mg/dL (7-18); BUN/Creat Ratio 36.3 RATIO (10-20); Calcium,Total 9.1 mg/dL (8.5-10.1); Chloride 105 mmol/L (98-107); Cholesterol 172 mg/dL (200); Creatinine, Serum 0.44 mg/dL (0.55-1.02); EST Glomerular Filtration Rate 149 mL/min (>60); Est Glom Filt Rate - Afr Amer 181 mL/min (>60); Estimated Creatinine Clearance 46.43 ml/min; Glucose 164 mg/dL (74-106); High Density Lipoprotein 61 mg/dL; Potassium 4.2 mmol/L (3.5-5.1); Sodium Level 139 mmol/L (136-145); Triglycerides 104 mg/dL; Very Low Density Lipoprotein 21 mg/dL (5-40)
--- NOTE | 2021-02-02 09:57 | CASEMGMT ---
Call from Beata Simmons, pt's CM thru [facility], and she states pt is active with [facility] for aide services M- and every other tuesday for 4hours, meals, and medical alert. Steve STEVENSON aware, voices understanding. SStbreanna REYES CM
--- NOTE | 2021-02-02 10:00 | MRI_ITS ---
STUDY: MRA NECK WITHOUT CONTRAST REASON FOR EXAM: Female, 70 years old patient with left sided weakness. TECHNIQUE: Source images were obtained, MIPs were performed. The study was performed unenhanced. Multiple images are limited by patient motion. COMPARISON: Prior comparison studies are not available for review at this time. FINDINGS: RIGHT CAROTID ARTERIES: Normal right common carotid artery (CCA). There is mild atherosclerotic plaque formation with minimal narrowing of the right carotid bulb. Normal origin of the right internal carotid (ICA) artery without a hemodynamically significant stenosis. There is atherosclerotic tortuous elongation of the cervical portion of the right internal carotid artery. Normal origin of the right external carotid artery (ECA). LEFT CAROTID ARTERIES: Normal left common carotid artery (CCA). There is mild atherosclerotic plaque formation with minimal narrowing of the left carotid bulb. Normal origin of the left internal carotid (ICA) artery without a hemodynamically significant stenosis. There is atherosclerotic tortuous elongation of the cervical portion of the left internal carotid artery. Normal origin of the left external carotid artery (ECA). VERTEBRAL ARTERIES: Normal antegrade flow within the bilateral vertebral artery without a hemodynamically significant stenosis. MRI/MRA Neck without Contrast IMPRESSION: Technically limited study due to patient motion without obvious acute thrombosis. Electronically Signed: Tami Sandoval MD at 12:52 EDT , Service support ,
--- NOTE | 2021-02-02 10:00 | MRI_ITS ---
STUDY: MRA OF THE HEAD WITHOUT CONTRAST REASON FOR EXAM: Female, 70 years old patient with left sided weakness. TECHNIQUE: 3-D [id number] (TOF) imaging was performed with MIPs. The study was performed unenhanced. COMPARISON: Prior comparison studies are not available for review at this time. FINDINGS: Normal bilateral petrous carotid arteries. There is elongation and tortuosity of the right cavernous carotid artery, without a demonstrated hemodynamically significant stenosis. There is elongation and tortuosity of the left cavernous carotid artery, without a demonstrated hemodynamically significant stenosis. Normal right A1 segments of the anterior cerebral artery. Normal left A1 segments of the anterior cerebral artery. Normal intact anterior communicating artery (ACOM). Normal bilateral A2 segments of the anterior cerebral arteries. Normal right M1 and M2 segments of the middle cerebral arteries, with a normal M1 bifurcation. Normal left M1 and M2 segments of the middle cerebral arteries, with a normal M1 bifurcation. There is non-visualization of the right posterior communicating artery (PCOM). There is non-visualization of the left posterior communicating artery (PCOM). Normal bilateral vertebral arteries. Normal basilar artery with a normal basilar bifurcation. The visualized bilateral superior cerebellar (SCA) arteries are normal. Normal bilateral P1, P2 and visualized P3 segments of the posterior cerebral arteries. There is no demonstrated aneurysm of the [place]. There is no major vessel occlusion or hemodynamically significant stenosis. There are involutional changes of the brain. MRI/MRA Head ONLY without Contrast IMPRESSION: No MRA evidence for hemodynamically significant stenosis or aneurysm. Electronically Signed: Tami Sandoval MD at 13:07 EDT , Service support ,
--- NOTE | 2021-02-02 11:31 | EKG12_ITS ---
Test Reason : CP Blood Pressure : / mmHG Vent. Rate : 107 BPM Atrial Rate : 107 BPM P-R Int : 160 ms QRS Dur : 080 ms QT Int : 384 ms P-R-T Axes : 079 038 240 degrees QTc Int : [address] & Marked T wave abnormality, consider anterolateral ischemia ST and T Wave Abnormality, Consider Inferior Ischemia Abnormal ECG Confirmed by JAMES LEACH, LUZ ([id number]), medical transcription editor WESLY CASTAÑEDA ([id number]) on 02/04/2021 10:19:43 AM Referred By: BRENDEN Confirmed By:LUZ RAMIREZ MD
[2021-02-02] MEDS: BRIMONIDINE 0.15% 5 ML Bottle 1 DRP OPHTHALMIC ×2 (11:56→21:57)
[2021-02-02] MEDS: proMETHazine 25 MG/ML Syringe 6.25 MG IM (13:38)
--- NOTE | 2021-02-02 15:02 | CHAPLAIN ---
Type of Pastoral Visit _x__ Initial Visit ___ Follow-up Visit ___ On-call Visit ___ General Patient Visit ___ Spiritual Assessment ___ Family Conference ___ Bereavement ___ Rapid Response ___ Code Blue ___ Other (describe below) Pastoral Care Referral From _x__ Patient ___ Family ___ Nurse ___ Physician ___ Production Miner ___ Spectrographer ___ Other (describe below) Sacrament/Intervention ___ Active listening ___ Anointing ___ Methodist ___ Bereavement ___ Communion ___ Kimberly exploration ___ ___ Life review ___ Prayer ___ Reconciliation ___ Sacrament of Sick _x__ Supportive presence ___ Wedding ___ Other (describe below) Pastoral Comments RN administering care and pt lying down in bed; pt states that she is not feeling well and does not wish to have a visit; pt says her son is coming in today to visit
--- NOTE | 2021-02-02 15:47 | CASEMGMT ---
This RN CM to room with WILDE form, explanation done-pt voices understanding, and signed WILDE form. Original to chart and copy to pt. Pt has a copy of the MCR IP vs OBS booklet at bedside. This RN CM also discussed discharge plan with pt and pt is agreeable to SNF. Pt was provided a list of SNF providers including quality and resource use data and consistent with the patient?s preferred geographic region, medical needs, and insurance network. Pt states she would like to go to [facility] at discharge. Steve mishra, voices understanding. SStaten RN CM
--- NOTE | 2021-02-02 15:47 | PCM.PN.HOSP ---
Documented by User: Maryuri Medeiros TAX ACCOUNTING MANAGER, TAX ACCOUNTING MANAGER-C 02/02/21 15:53 Subjective Subjective Patient seen and examined. Reports nausea and vomiting this morning. Left-sided weakness improved. Patient very anxious, tearful. Amenable to SNF at discharge. Objective Data Objective Data Vital Signs: Vital Signs Temp Pulse Resp BP Pulse Ox 97.9 F 109 H 18 158/103 H 100 02/02/21 08:45 02/02/21 11:00 02/02/21 08:45 02/02/21 08:45 02/02/21 08:45 Oxygen Flow Rate (L/min) 1 Oxygen Delivery Method Nasal Cannula Weight: 171 lb 8 oz Body Mass Index (BMI) 28.5 Intake & Output: Intake and Output for Last 24 Hours 01/31/21 02/01/21 02/02/21 23:59 23:59 23:59 Intake Total 460 / 1060 920 / 920 Output Total 700 / 700 Balance 460 / 860 220 / 220 Lab / Micro Data Result Diagrams: 02/01/21 11:00 02/02/21 06:02 Labs: Laboratory Results - last 24 hr 02/01/21 16:40: Magnesium 2.0, Troponin I High Sens 82.4 H* 02/02/21 06:02: Sodium 139, Potassium 4.2, Chloride 105, Carbon Dioxide 29.0, Anion Gap 5, BUN 16, Creatinine 0.44 L, Estim Creat Clear Calc 46.43, Est GFR (MDRD) Af Amer 181, Est GFR (MDRD) Non-Af 149, BUN/Creatinine Ratio 36.3 H, Glucose 164 H, Calcium 9.1, Triglycerides 104, Cholesterol 172, LDL Cholesterol 90, VLDL Cholesterol 21, HDL Cholesterol 61 Radiography Diagnostic Testing: Radiology Impression Brain MRI 02/01/21 11:09 IMPRESSION: 1. Involutional changes of the brain, as described above. 2. No MR evidence for acute infarct. Electronically Signed: Tami Sandoval MD at 13:02 EDT , Service support , Head MRA 02/02/21 10:00 IMPRESSION: No MRA evidence for hemodynamically significant stenosis or aneurysm. Electronically Signed: Tami Sandoval MD at 13:07 EDT , Service support , Neck MRA 02/02/21 10:00 IMPRESSION: Technically limited study due to patient motion without obvious acute thrombosis. Electronically Signed: Tami Sandoval MD at 12:52 EDT , Service support , Physical Exam Const alert, oriented x3 and no apparent distress Orientation / Consciousness: awake, oriented to person, oriented to place and oriented to time HEENT normocephalic Mouth: dry mucous membranes Eyes PERRL, EOMs intact bilaterally and conjunctivae normal Neck no lymphadenopathy Resp clear to auscultation bilaterally Auscultation: diminished lung sounds Cardio regular rate, regular rhythm and no murmurs Peripheral Pulses: pulses 2+ throughout GI normal to inspection, nondistended, normoactive bowel sounds, non-tender and non-distended Extremity normal to inspection Skin no rashes or lesions noted Lesions: no lesions Rashes: no rashes Trauma: no lacerations or abrasions Neuro CN's II-XII intact bilaterally, no focal motor deficits, no sensory deficits noted and deep tendon reflexes 2+ bilaterally Neuro Narrative: Neuro exam inconsistent however general mild left-sided weakness and subjective left-sided sensory deficit. Psych mental status grossly normal and affect normal Assessment & Plan Assessment/Plan (1) Paresthesias: (2) Left arm weakness: PLAN: 1. Left-sided weakness-CVA ruled out. Patient has chronic debility/weakness with recent fall onto the left side. Brain CT with chronic changes. MRI of brain without acute infarct. MRA of head with no significant stenosis or aneurysm. MRA of neck without obvious acute thrombosis. On aspirin, statin at baseline. PT/OT. Patient amendable to SNF. 2. Hemorrhoidal pain/chronic constipation-continue bowel regimen. Patient has follow-up with general surgery as outpatient for hemorrhoid evaluation. 3. Seizure history-continue home medications. 4. COPD with chronic hypoxic respiratory failure-on baseline home O2. Chest CTA on admission unremarkable. 5. CHUY-continue PAP regimen. 6. Restless leg syndrome 7. Hypothyroidism-continue Synthroid. 8. Depression/anxiety-continue home medications. 9. Degenerative disc disease/chronic pain-on methadone. 10. Stress bladder incontinence-continue home medications. 11. Tobacco dependence-encouraged cessation. Nicotine replacement patch. DVT prophylaxis-Lovenox subcu Discharge plan: Await SNF pre-cert. This patient was seen by Maryuri Medeiros NP-C under the supervision of Dr. Noonan. Documented by User: Dr. Julia Noonan MD 02/03/21 07:51 Objective Data Lab / Micro Data Result Diagrams: 02/01/21 11:00 02/02/21 06:02 Charges/Coding Addendum Addendum: This patient was seen in conjunction with Maryuri Medeiros. I have independently interviewed and examined the patient and reviewed pertinent historical, laboratory, and other data. I have reviewed her note and concur with her documentation Patient was seen and examined. She complains of multiple things including the fact that she could not remember what brought her in. I reassured her that her MRI was negative for stroke. She appears anxious and frustrated. Physical Exam: Gen: Anxious, not pale, not jaundiced CVS:HS I +II, regular, no murmurs RESP: CTA GI: BS present and normal, soft, nontender, no palpable organs EXT:No edema ASSESSMENT: 1. Left arm weakness, acute CVA ruled out 2. Seizure disorder 3. COPD with chronic home oxygen use 4. CHUY 5. Restless leg syndrome 6. Hypothyroidism 7. Anxiety/depression Plan: We will continue to monitor PT/OT to evaluate and treat for discharge planning Possible DC in a.m. Visit Charges Inpatient E&M: 41241 Subs Hosp L2
--- NOTE | 2021-02-02 16:17 | CASEMGMT ---
Per RN CM patient is open to going to [facility]. SW faxed referral. SW will follow up in am. Michela CARTER
[2021-02-02] MEDS: Midodrine HCl 5 MG Tablet 10 MG PO (18:20)
[2021-02-02] MEDS: Ferrous Sulfate 325 MG Tablet PO (18:21)
--- NOTE | 2021-02-02 19:52 | NURSING ---
Pandemic charting in use
[2021-02-02] MEDS: Mirtazapine 15 MG Tablet 7.5 MG PO (21:58)
[2021-02-02] MEDS: Atorvastatin Calcium 40 MG Tablet PO (21:58)
[2021-02-02] MEDS: OXcarbazepine 600 MG Tablet PO (21:59)
[2021-02-02] MEDS: Mirabegron 25 MG TAB.ER.24H PO (22:00)
[2021-02-02] MEDS: Pramipexole Di-HCl 1 MG Tablet PO (22:00)
[2021-02-02] MEDS: Benztropine 2 MG Tablet PO (22:01)
[2021-02-02] MEDS: Potassium Chloride Oral Tablet 20 MEQ PO (22:01)
[2021-02-02] MEDS: Methadone 10 MG Tablet PO (22:08)
[2021-02-02] MEDS: Phenobarbital 32.4 MG Tablet PO (22:13)
[2021-02-02] MEDS: Temazepam 15 MG Capsule 30 MG PO (23:57)
[2021-02-03] VITALS (11 sets, daily range): BP systolic 96–154; BP diastolic 51–92; PULSE 86–115; RESP 16–18; TEMP 36.7–37.6; O2SAT 94–97
[2021-02-03] MEDS: Enoxaparin 40 MG/0.4 ML Syringe SC (06:04)
[2021-02-03] MEDS: Levothyroxine 50 MCG Tablet PO (06:05)
[2021-02-03] MEDS: Methadone 10 MG Tablet PO ×3 (06:10→22:19)
[2021-02-03] MEDS: Ondansetron 4 MG/2 ML Vial IV (09:35)
[2021-02-03] MEDS: 0.9% Saline Lock 10 ML Syringe IV (09:35)
--- NOTE | 2021-02-03 10:24 | CASEMGMT ---
GRAHAM has tried to fax referral to [facility] at least 4 times and it will not go through. (2 different fax numbers) GRAHAM spoke with Yesy with [facility] and she told GRAHAM to try [phone]. Michela Rosas RIM ROLLER OPERATOR [facility]
--- NOTE | 2021-02-03 10:46 | PCM.PN.HOSP ---
Documented by User: Maryuri Medeiros ADVERTISING OPERATIONS COORDINATOR, ADVERTISING OPERATIONS COORDINATOR-C 02/03/21 10:49 Subjective Subjective Patient seen and examined. Resting comfortably in bed. States she is tired, wants to be left alone. Denies further nausea, vomiting. Objective Data Objective Data Vital Signs: Vital Signs Temp Pulse Resp BP Pulse Ox 99.7 F H 105 H 16 121/83 H 95 02/03/21 04:31 02/03/21 07:20 02/03/21 04:31 02/03/21 04:31 02/03/21 07:33 Oxygen Flow Rate (L/min) 2 Oxygen Delivery Method Nasal Cannula Weight: 171 lb 8.314 oz Body Mass Index (BMI) 28.5 Intake & Output: Intake and Output for Last 24 Hours 02/01/21 02/02/21 02/03/21 23:59 23:59 23:59 Intake Total 460 / 1060 1040 / 1340 500 / 500 Output Total 700 / 700 120 / 120 Balance 460 / 860 340 / 640 380 / 380 Medical Nutrition Assessment Dietitian: Malnutrition Criteria Met Start: 02/02/21 16:55 Freq: Status: Active Protocol: Document 02/02/21 16:55 RMA (Rec: 02/02/21 16:55 RMA [id number]) Nutrition Malnutrition Evidence of Malnutrition Exists Yes Malnutrition (severe): Chronic Evidenced By Suboptimal Energy Intake ( Severe),Weight Loss (Severe) Clinical Problem Chronic Disease or Condition Related Malnutrition Etiology Severe protein/calorie malnutrition in the context of chronic disease/debility related to weakness/nausea and inability to consume adequate energy/nutrition Signs/Symptoms as evidenced by 9% wt loss x past 2 months, 19% wt loss x past 4 months, PO meeting less than 50% estimated nutrition needs x past 4-6 months per pt report and taking less than 50% meals since admit. Status Active Problem Recommendation Dietitian Recommendations/Changes Will continue liberalized regular diet as ordered and encourage intake at meals. Monitor need to restrict carbohydrates. Will continue 120ml ensure enlive 4 times per day w/ medpass as tolerated. Will add magic cup BID w/ lunch and dinner for tolerance . Lab / Micro Data Result Diagrams: 02/01/21 11:00 02/02/21 06:02 Radiography Diagnostic Testing: Radiology Impression Brain MRI 02/01/21 11:09 IMPRESSION: 1. Involutional changes of the brain, as described above. 2. No MR evidence for acute infarct. Electronically Signed: Tami Sandoval MD at 13:02 EDT , Service support , Head MRA 02/02/21 10:00 IMPRESSION: No MRA evidence for hemodynamically significant stenosis or aneurysm. Electronically Signed: Tami Sandoval MD at 13:07 EDT , Service support , Neck MRA 02/02/21 10:00 IMPRESSION: Technically limited study due to patient motion without obvious acute thrombosis. Electronically Signed: Tami Sandoval MD at 12:52 EDT , Service support , Physical Exam Const alert, oriented x3 and no apparent distress Orientation / Consciousness: awake, oriented to person, oriented to place and oriented to time HEENT normocephalic and moist oral mucous membranes Eyes PERRL, EOMs intact bilaterally and conjunctivae normal Neck no lymphadenopathy Resp clear to auscultation bilaterally Auscultation: diminished lung sounds Cardio regular rate, regular rhythm and no murmurs Peripheral Pulses: pulses 2+ throughout GI normal to inspection, nondistended, normoactive bowel sounds, non-tender and non-distended Extremity normal to inspection Skin no rashes or lesions noted Lesions: no lesions Rashes: no rashes Trauma: no lacerations or abrasions Neuro CN's II-XII intact bilaterally, no focal motor deficits, no sensory deficits noted and deep tendon reflexes 2+ bilaterally Psych mental status grossly normal and affect normal Assessment & Plan Assessment/Plan (1) Left arm weakness: PLAN: 1. Left-sided weakness-CVA ruled out. Patient has chronic debility/weakness with recent fall onto the left side. Brain CT with chronic changes. MRI of brain without acute infarct. MRA of head with no significant stenosis or aneurysm. MRA of neck without obvious acute thrombosis. On aspirin, statin at baseline. PT/OT. Patient amendable to SNF. 2. Hemorrhoidal pain/chronic constipation-continue bowel regimen. Patient has follow-up with general surgery as outpatient for hemorrhoid evaluation. 3. Seizure history-continue home medications. 4. COPD with chronic hypoxic respiratory failure-on baseline home O2. Chest CTA on admission unremarkable. 5. CHUY-continue PAP regimen. 6. Restless leg syndrome 7. Hypothyroidism-continue Synthroid. 8. Depression/anxiety-continue home medications. 9. Degenerative disc disease/chronic pain-on methadone. 10. Stress bladder incontinence-continue home medications. 11. Tobacco dependence-encouraged cessation. Nicotine replacement patch. DVT prophylaxis-Lovenox subcu Discharge plan: Await SNF pre-cert. This patient was seen by MAURICIO Brown under the supervision of Dr. Noonan. Documented by User: Dr. Julia Noonan MD 02/03/21 12:37 Objective Data Lab / Micro Data Result Diagrams: 02/01/21 11:00 02/02/21 06:02 Charges/Coding Addendum Addendum: This patient was seen in conjunction with Maryuri Medeiros. I have independently interviewed and examined the patient and reviewed pertinent historical, laboratory, and other data. I have reviewed her note and concur with her documentation Patient was seen and examined. She complains of feeling tired and not able to sleep. No other acute events overnight. Physical Exam: Gen: Anxious, not pale, not jaundiced CVS:HS I +II, regular, no murmurs RESP: CTA GI: BS present and normal, soft, nontender, no palpable organs EXT:No edema ASSESSMENT: 1. Left arm weakness, acute CVA ruled out 2. Seizure disorder 3. COPD with chronic home oxygen use 4. CHUY 5. Restless leg syndrome 6. Hypothyroidism 7. Anxiety/depression Plan: Waiting on discharge planning to halfway facility Visit Charges Inpatient E&M: 88104 Disch Hosp
[2021-02-03] MEDS: Calcium (Elemental) 500 MG Tablet PO (11:02)
[2021-02-03] MEDS: BRIMONIDINE 0.15% 5 ML Bottle 1 DRP OPHTHALMIC ×2 (11:02→22:18)
[2021-02-03] MEDS: Docusate Sodium 100 MG Capsule PO (11:03)
[2021-02-03] MEDS: Benztropine 2 MG Tablet PO ×2 (11:03→22:18)
[2021-02-03] MEDS: Mirabegron 25 MG TAB.ER.24H PO ×2 (11:04→22:18)
[2021-02-03] MEDS: Potassium Chloride Oral Tablet 20 MEQ PO ×2 (11:04→22:19)
[2021-02-03] MEDS: Senna/Docusate Sodium 1 Tablet 2 TABLET PO ×2 (11:05→22:18)
[2021-02-03] MEDS: OXcarbazepine 600 MG Tablet PO ×2 (11:05→22:19)
[2021-02-03] MEDS: Pantoprazole Sodium 20 MG Tablet PO (11:05)
[2021-02-03] MEDS: Aspirin E.C. 81 MG Tablet PO (11:06)
[2021-02-03] MEDS: Ferrous Sulfate 325 MG Tablet PO ×2 (11:06→16:57)
[2021-02-03] MEDS: Phenobarbital 32.4 MG Tablet PO ×2 (11:10→22:19)
--- NOTE | 2021-02-03 11:44 | CASEMGMT ---
spoke with Yesy and she said they did get the referral. She said they will verify insurance and start the pre-cert. Plan: d[facility] to [facility] pre-cert. Michela CARTER
--- NOTE | 2021-02-03 13:46 | CASEMGMT ---
Patient is observation status so SW will have to complete a PASRR and patient will trip the screen as she had a Psych hospitalization within the last 2 years. SW completed the PASRR and faxed all necessary information to [facility]. SW met with patient, introduced self and role at [facility]. SW let patient know that [facility] can take her. SW explained that we will have to wait on her insurance to approve her. Patient said, That makes it easier on my son. Can they take my walker too.? SW told her they probably can, but will find out when we get closer. Michela Rosas SECTION CHIEF [facility]
[2021-02-03] MEDS: Psyllium 1 PACKET PO (14:53)
[2021-02-03] MEDS: Midodrine HCl 5 MG Tablet 10 MG PO (16:57)
[2021-02-03] MEDS: Mirtazapine 15 MG Tablet 7.5 MG PO (22:18)
[2021-02-03] MEDS: Pramipexole Di-HCl 1 MG Tablet PO (22:18)
[2021-02-03] MEDS: Atorvastatin Calcium 40 MG Tablet PO (22:19)
[2021-02-03] MEDS: Acetaminophen 325 MG Tablet 650 MG PO (22:19)
[2021-02-04] VITALS (10 sets, daily range): BP systolic 105–133; BP diastolic 73–82; PULSE 81–105; RESP 18–20; TEMP 36.6–37.3; O2SAT 91–96
[2021-02-04] MEDS: Levothyroxine 50 MCG Tablet PO (06:24)
[2021-02-04] MEDS: Enoxaparin 40 MG/0.4 ML Syringe SC (06:25)
[2021-02-04] MEDS: Methadone 10 MG Tablet PO ×3 (06:25→21:16)
[2021-02-04] MEDS: Senna/Docusate Sodium 1 Tablet 2 TABLET PO ×2 (10:00→21:12)
[2021-02-04] MEDS: Docusate Sodium 100 MG Capsule PO (10:00)
[2021-02-04] MEDS: Midodrine HCl 5 MG Tablet 10 MG PO ×2 (10:00→11:36)
[2021-02-04] MEDS: Mirabegron 25 MG TAB.ER.24H PO ×2 (10:00→21:12)
[2021-02-04] MEDS: BRIMONIDINE 0.15% 5 ML Bottle 1 DRP OPHTHALMIC ×2 (10:00→21:16)
[2021-02-04] MEDS: Calcium (Elemental) 500 MG Tablet PO ×2 (10:00→11:36)
[2021-02-04] MEDS: Pantoprazole Sodium 20 MG Tablet PO (10:01)
[2021-02-04] MEDS: Ferrous Sulfate 325 MG Tablet PO (10:01)
[2021-02-04] MEDS: OXcarbazepine 600 MG Tablet PO ×2 (10:01→21:13)
[2021-02-04] MEDS: Aspirin E.C. 81 MG Tablet PO (10:01)
[2021-02-04] MEDS: Benztropine 2 MG Tablet PO ×2 (10:02→21:13)
[2021-02-04] MEDS: Potassium Chloride Oral Tablet 20 MEQ PO ×2 (10:02→21:13)
[2021-02-04] MEDS: Phenobarbital 32.4 MG Tablet PO ×2 (10:06→21:12)
--- NOTE | 2021-02-04 11:21 | PN.HOSP_ITS ---
Documented by User: Maryuri Medeiros NP, [employer] DIRECTOR-C 02/04/21 11:25 Subjective Subjective Patient seen and examined. Tearful, stating she cannot go home because she is not able to ambulate. Discussed plan of care including awaiting insurance approval to SNF. Patient denies other symptoms or complaints. Objective Data Objective Data Vital Signs: Vital Signs Temp Pulse Resp BP Pulse Ox 98.6 F 102 H 18 133/77 H 95 02/04/21 10:10 02/04/21 10:10 02/04/21 10:10 02/04/21 10:10 02/04/21 10:10 Oxygen Flow Rate (L/min) 2 Oxygen Delivery Method Nasal Cannula Weight: 171 lb 8.314 oz Body Mass Index (BMI) 28.5 Intake & Output: Intake and Output for Last 24 Hours 02/02/21 02/03/21 02/04/21 23:59 23:59 23:59 Intake Total 1040 / 1340 860 / 1100 360 / 360 Output Total 700 / 700 270 / 370 100 / 100 Balance 340 / 640 590 / 730 260 / 260 Medical Nutrition Assessment Dietitian: Malnutrition Criteria Met Start: 02/02/21 16:55 Freq: Status: Active Protocol: Document 02/02/21 16:55 RMA (Rec: 02/02/21 16:55 RMA [id number]) Nutrition Malnutrition Evidence of Malnutrition Exists Yes Malnutrition (severe): Chronic Evidenced By Suboptimal Energy Intake ( Severe),Weight Loss (Severe) Clinical Problem Chronic Disease or Condition Related Malnutrition Etiology Severe protein/calorie malnutrition in the context of chronic disease/debility related to weakness/nausea and inability to consume adequate energy/nutrition Signs/Symptoms as evidenced by 9% wt loss x past 2 months, 19% wt loss x past 4 months, PO meeting less than 50% estimated nutrition needs x past 4-6 months per pt report and taking less than 50% meals since admit. Status Active Problem Recommendation Dietitian Recommendations/Changes Will continue liberalized regular diet as ordered and encourage intake at meals. Monitor need to restrict carbohydrates. Will continue 120ml ensure enlive 4 times per day w/ medpass as tolerated. Will add magic cup BID w/ lunch and dinner for tolerance . Lab / Micro Data Result Diagrams: 02/01/21 11:00 02/02/21 06:02 Radiography Diagnostic Testing: Radiology Impression Echocardiogram 02/01/21 17:10 Interpretation Summary The study was technically difficult. Limited views were obtained. Segmental dysfunction with preserved ejection fraction (see wall motion). The estimated ejection fraction is 55 %. Comment: no obvious intracardiac mass lesion / thrombus identified. Ordering Physician: Carol King Referring Physician: Patel Veliz Chi Performed By: Sarahi Falcon RDCS Physical Exam Const alert, oriented x3 and no apparent distress Orientation / Consciousness: awake, oriented to person, oriented to place and oriented to time HEENT normocephalic and moist oral mucous membranes Eyes PERRL, EOMs intact bilaterally and conjunctivae normal Neck no lymphadenopathy Resp clear to auscultation bilaterally Auscultation: diminished lung sounds Cardio regular rate, regular rhythm and no murmurs Peripheral Pulses: pulses 2+ throughout GI normal to inspection, nondistended, normoactive bowel sounds, non-tender and non-distended Extremity normal to inspection Skin no rashes or lesions noted Lesions: no lesions Rashes: no rashes Trauma: no lacerations or abrasions Neuro CN's II-XII intact bilaterally, no focal motor deficits, no sensory deficits noted and deep tendon reflexes 2+ bilaterally Psych mental status grossly normal and affect normal Assessment & Plan Assessment/Plan (1) Left arm weakness: PLAN: 1. Left-sided weakness-CVA ruled out. Patient has chronic debil ity/weakness with recent fall onto the left side. Brain CT with chronic changes. MRI of brain without acute infarct. MRA of head with no significant stenosis or aneurysm. MRA of neck without obvious acute thrombosis. On aspirin, statin at baseline. PT/OT. Patient amendable to SNF. 2. Hemorrhoidal pain/chronic constipation-continue bowel regimen. Patient has follow-up with general surgery as outpatient for hemorrhoid evaluation. 3. Seizure history-continue home medications. 4. COPD with chronic hypoxic respiratory failure-on baseline home O2. Chest CTA on admission unremarkable. 5. CHUY-continue PAP regimen. 6. Restless leg syndrome 7. Hypothyroidism-continue Synthroid. 8. Depression/anxiety-continue home medications. 9. Degenerative disc disease/chronic pain-on methadone. 10. Stress bladder incontinence-continue home medications. 11. Tobacco dependence-encouraged cessation. Nicotine replacement patch. DVT prophylaxis-Lovenox subcu Discharge plan: Await SNF pre-cert. This patient was seen by Maryuri Medeiros NP-C under the supervision of Dr. Noonan. Documented by User: Dr. Julia Noonan MD 02/04/21 17:21 Objective Data Lab / Micro Data Result Diagrams: 02/01/21 11:00 02/02/21 06:02 Charges/Coding Addendum Addendum: This patient was seen in conjunction with Maryuri Medeiros. I have independently interviewed and examined the patient and reviewed pertinent historical, laboratory, and other data. I have reviewed her note and concur with her documentation Patient was seen and examined. No other acute events overnight. Physical Exam: Gen: Anxious, not pale, not jaundiced CVS:HS I +II, regular, no murmurs RESP: CTA GI: BS present and normal, soft, nontender, no palpable organs EXT:No edema ASSESSMENT: 1. Left arm weakness, acute CVA ruled out 2. Seizure disorder 3. COPD with chronic home oxygen use 4. CHUY 5. Restless leg syndrome 6. Hypothyroidism 7. Anxiety/depression Plan: Waiting on discharge planning to residential facility Visit Charges Inpatient E&M: 34101 Subs Hosp L2
--- NOTE | 2021-02-04 11:28 | CASEMGMT ---
Addendum entered by Michela Rossa 02/04/21 11:51: GRAHAM did find another number to call for [facility]. SW left a voice mail. A few minutes later SW received a return call from Stefano and he said they did get SW's fax yesterday. Michela CARTER Original Note: GRAHAM has attempted to call [facility] to verify they received SW's fax. However a recording comes on stating voice mail is not available for this number. GRAHAM will continue to try and reach [facility]. Michela CARTER
--- NOTE | 2021-02-04 14:53 | CASEMGMT ---
SW received a call from patient's son in law. He said patient has become increasingly confused. He asked that SW communicate with patient's son or him regarding d/c planning. He said he is aware she will be going to [facility] and we are waiting on insurance. GRAHAM told him SW can communicate with patient's son. Michela CARTER
--- NOTE | 2021-02-04 16:19 | CASEMGMT ---
Social Work Note GRAHAM received call from Aura at [facility] stating pre-cert has been obtained. GRAHAM informed Aura that pt is on PCU floor so SW is Laney Rosas that is following pt. GRAHAM reviewed notes, it appears pt tripped the screen and are awaiting results from [facility]. GRAHAM informed Aura of this and that pt cannot discharge from [facility] until those results are received. Aura states she will follow up with Laney Rosas tomorrow. GRAHAM placed a call to Laney Rosas, pt does still need results from [facility]. GRAHAM updated Laney Rosas on conversation with Aura at [facility]. Cheyanne Cee TIME LOCK EXPERT, ROLLER CLEANER
--- NOTE | 2021-02-04 16:19 | CASEMGMT ---
GRAHAM Edward received a call that patient was approved. Cheyanne did let them know that we are waiting on [facility] to clear patient. Aura will call GRAHAM tomorrow. Michela CARTER
[2021-02-04] MEDS: Pramipexole Di-HCl 1 MG Tablet PO (21:12)
[2021-02-04] MEDS: Atorvastatin Calcium 40 MG Tablet PO (21:12)
[2021-02-04] MEDS: Mirtazapine 15 MG Tablet 7.5 MG PO (21:12)
[2021-02-04] MEDS: Temazepam 15 MG Capsule 30 MG PO (21:13)
[2021-02-04] MEDS: Acetaminophen 325 MG Tablet 650 MG PO (21:13)
[2021-02-05] VITALS (13 sets, daily range): BP systolic 121–159; BP diastolic 52–138; PULSE 81–103; RESP 16–18; TEMP 36.7–37.7; O2SAT 93–100; BMI 28.5
[2021-02-05] MEDS: Levothyroxine 50 MCG Tablet PO (06:29)
[2021-02-05] MEDS: Enoxaparin 40 MG/0.4 ML Syringe SC (06:30)
[2021-02-05] MEDS: Methadone 10 MG Tablet PO ×3 (06:30→21:05)
[2021-02-05] MEDS: BRIMONIDINE 0.15% 5 ML Bottle 1 DRP OPHTHALMIC ×2 (09:14→21:03)
[2021-02-05] MEDS: Senna/Docusate Sodium 1 Tablet 2 TABLET PO ×2 (09:16→21:06)
[2021-02-05] MEDS: Mirabegron 25 MG TAB.ER.24H PO ×2 (09:16→21:06)
[2021-02-05] MEDS: Potassium Chloride Oral Tablet 20 MEQ PO ×2 (09:16→21:06)
[2021-02-05] MEDS: Calcium (Elemental) 500 MG Tablet PO ×2 (09:17→11:55)
[2021-02-05] MEDS: Aspirin E.C. 81 MG Tablet PO (09:17)
[2021-02-05] MEDS: Pantoprazole Sodium 20 MG Tablet PO (09:17)
[2021-02-05] MEDS: Benztropine 2 MG Tablet PO ×2 (09:17→21:05)
[2021-02-05] MEDS: OXcarbazepine 600 MG Tablet PO ×2 (09:18→21:06)
[2021-02-05] MEDS: Phenobarbital 32.4 MG Tablet PO ×2 (09:25→21:06)
[2021-02-05] MEDS: Docusate Sodium 100 MG Capsule PO (09:25)
[2021-02-05] MEDS: Polyethylene Glycol 3350 17 GM PACKET PO (09:25)
--- NOTE | 2021-02-05 11:37 | PN.HOSP_ITS ---
Documented by User: Rolando MARTINEZ 02/05/21 11:59 Subjective Subjective Patient is a 70-year-old female resting in a chair eating breakfast, alert and orient x3. Denies chest pain, shortness of breath, palpitations, hemoptysis, sputum production, fever, chills, N/V/D. . Objective Data Objective Data Vital Signs: Vital Signs Temp Pulse Resp BP Pulse Ox 98.1 F 86 18 159/138 H 93 02/05/21 09:11 02/05/21 10:46 02/05/21 09:11 02/05/21 09:11 02/05/21 09:11 Oxygen Flow Rate (L/min) 2 Oxygen Delivery Method Room Air Weight: 171 lb 8.314 oz Body Mass Index (BMI) 28.5 Intake & Output: Intake and Output for Last 24 Hours 02/03/21 02/04/21 02/05/21 23:59 23:59 23:59 Intake Total 860 / 1100 860 / 860 200 / 200 Output Total 270 / 370 300 / 300 Balance 590 / 730 560 / 560 200 / 200 Medical Nutrition Assessment Dietitian: Malnutrition Criteria Met Start: 02/02/21 16:55 Freq: Status: Active Protocol: Document 02/02/21 16:55 RMA (Rec: 02/02/21 16:55 RMA [id number]) Nutrition Malnutrition Evidence of Malnutrition Exists Yes Malnutrition (severe): Chronic Evidenced By Suboptimal Energy Intake ( Severe),Weight Loss (Severe) Clinical Problem Chronic Disease or Condition Related Malnutrition Etiology Severe protein/calorie malnutrition in the context of chronic disease/debility related to weakness/nausea and inability to consume adequate energy/nutrition Signs/Symptoms as evidenced by 9% wt loss x past 2 months, 19% wt loss x past 4 months, PO meeting less than 50% estimated nutrition needs x past 4-6 months per pt report and taking less than 50% meals since admit. Status Active Problem Recommendation Dietitian Recommendations/Changes Will continue liberalized regular diet as ordered and encourage intake at meals. Monitor need to restrict carbohydrates. Will continue 120ml ensure enlive 4 times per day w/ medpass as tolerated. Will add magic cup BID w/ lunch and dinner for tolerance . Lab / Micro Data Result Diagrams: 02/01/21 11:00 02/02/21 06:02 Physical Exam Const alert, oriented x3 and no apparent distress HEENT head/scalp atraumatic and moist oral mucous membranes Head and Scalp: normocephalic Eyes PERRL, EOMs intact bilaterally and conjunctivae normal Neck no lymphadenopathy, supple and no JVD Resp normal respiratory effort, no retractions and no use of accessory muscles Cardio regular rate, regular rhythm, no murmurs and no JVD GI normal to inspection, nondistended, normoactive bowel sounds, soft to palpation and non-tender Extremity normal to inspection, full ROM and no clubbing, cyanosis or edema Skin no rashes or lesions noted, no wounds, skin turgor normal and no jaundice Neuro CN's II-XII intact bilaterally Psych Mood & Affect: anxious Assessment & Plan Assessment/Plan (1) Left arm weakness: PLAN: Day 4: See subjective. Discharge planning: Awaiting SNF pre-CERT to [facility]. 1) left-sided weakness CVA ruled out. Brain CT with chronic changes. MRI of brain without acute infarct. MRA of head with no significant stenosis or aneurysm. MRA of neck without obvious acute thrombosis. Disposition as above. 2) seizure history Continue oxcarbazepine, benztropine and phenobarbital. 3) COPD Not in acute exacerbation, continue home medication regimen. 4) CHUY Continue CPAP nightly. 5) hypothyroidism Continue Synthroid 6) depression/anxiety Continue Remeron, 7) degenerative disc disease Continue methadone. 8) stress bladder incontinence Continue mirabegron. 9) tobacco dependence Cessation encouraged, nicotine patch ordered. DVT prophylaxis- Lovenox Patient seen by Rolando Palencia PA-C, under the supervision of Dr. Noonan. Documented by User: Dr. Julia Noonan MD 02/05/21 16:51 Objective Data Lab / Micro Data Result Diagrams: 02/01/21 11:00 02/02/21 06:02 Charges/Coding Addendum Addendum: This patient was seen in conjunction with JUAN Cruz. I have independently interviewed and examined the patient and reviewed pertinent historical, laboratory, and other data. Please refer to JUAN Cruz's note for his patient's presentation, findings, and recommendations. I have reviewed and his note and concur with his documentation Patient was seen and examined. No acute events overnight. Physical Exam: Gen: Anxious, not pale, not jaundiced CVS:HS I +II, regular, no murmurs RESP: CTA GI: BS present and normal, soft, nontender, no palpable organs EXT:No edema ASSESSMENT: 1. Left arm weakness, acute CVA ruled out 2. Seizure disorder 3. COPD with chronic home oxygen use 4. CHUY 5. Restless leg syndrome 6. Hypothyroidism 7. Anxiety/depression Plan: Waiting on discharge planning to assisted facilitygular, no murmurs Hold midodrine on account of elevated blood pressure Visit Charges Inpatient E&M: 57997 Subs Hosp L2
[2021-02-05] MEDS: Ferrous Sulfate 325 MG Tablet PO (11:55)
--- NOTE | 2021-02-05 12:02 | CASEMGMT ---
GRAHAM called [facility] to check on the status of patient's case. GRAHAM left a voice mail requesting a return call. Michela CARTER
[2021-02-05] MEDS: Ondansetron 4 MG/2 ML Vial IV (19:12)
[2021-02-05] MEDS: 0.9% Saline Lock 10 ML Syringe IV (19:12)
[2021-02-05] MEDS: Mirtazapine 15 MG Tablet 7.5 MG PO (21:04)
[2021-02-05] MEDS: Atorvastatin Calcium 40 MG Tablet PO (21:05)
[2021-02-05] MEDS: Psyllium 1 PACKET PO (21:06)
[2021-02-05] MEDS: Pramipexole Di-HCl 1 MG Tablet PO (21:06)
[2021-02-06] VITALS (13 sets, daily range): BP systolic 110–152; BP diastolic 63–100; PULSE 77–98; RESP 14–18; TEMP 36.6–37.1; O2SAT 93–97
[2021-02-06] MEDS: Methadone 10 MG Tablet PO ×3 (05:02→21:51)
[2021-02-06] MEDS: Levothyroxine 50 MCG Tablet PO (05:03)
[2021-02-06] MEDS: Enoxaparin 40 MG/0.4 ML Syringe SC (05:03)
[2021-02-06 06:19] LABS: Absolute Lymphocyte Count 2.15 X10^3/uL (0.83-4.51); Absolute Neutrophil Count 4.1 X10^3/uL (2.0-7.7); Basophil# 0.03 X10^3/uL; Basophil% 0.4 % (0-1); Eosinophils% 2.8 % (0-5); Hematocrit 35.7 % (37-47); Hemoglobin 11.2 g/dL (12.0-15.0); Lymphocyte # 2.15 X10^3/ul (0.83-4.51); Lymphocyte % 30.3 % (19-41); Mean Corp Hgb Conc 31.4 g/dL (32-36); Mean Corpuscular Hgb 28.9 pg (27.0-32.0); Mean Corpuscular Volume 92.2 fL (81-99); Mean Platelet Vol. 9.6 fl (6.2-12.0); Monocyte# 0.56 X10^3/uL; Monocyte% 7.9 % (0-10); NRBC Flagged by Analyzer 0 % (0-5); Neutrophil # 4.12 X10^3/uL (2.7-7.7); Neutrophil % 58.2 % (47-70); Platelet Count 309 K/mm3 (150-450); RBC Distribution Width SD 47.3 fl (35.1-43.9); Red Blood Count 3.87 M/mm3 (4.2-5.4); White Blood Count 7.1 K/mm3 (4.4-11.0)
[2021-02-06 06:47] LABS: Anion Gap 6 (5-15); BUN 11 mg/dL (7-18); BUN/Creat Ratio 33.8 RATIO (10-20); Calcium,Total 8.9 mg/dL (8.5-10.1); Chloride 99 mmol/L (98-107); Creatinine, Serum 0.32 mg/dL (0.55-1.02); EST Glomerular Filtration Rate 212 mL/min (>60); Est Glom Filt Rate - Afr Amer 257 mL/min (>60); Estimated Creatinine Clearance 46.43 ml/min; Glucose 116 mg/dL (74-106); Potassium 3.9 mmol/L (3.5-5.1); Sodium Level 135 mmol/L (136-145)
[2021-02-06] MEDS: 0.9% Saline Lock 10 ML Syringe IV ×2 (08:04→15:19)
[2021-02-06] MEDS: Ondansetron 4 MG/2 ML Vial IV (08:04)
--- NOTE | 2021-02-06 09:58 | PCM.TXEXTCAR ---
Diet 02/01/21 16:28 Diet: Regular - General Food consistency:: Pureed Liquid Consistency:: Regular/Thin Type of Dietary Supplement:: Magic Cup Dessert Diet Comments: Direct sup., assist feeding as needed; magic cup BID w/ lunch and dinner Routine Orders/Code Status O2 Liters per Minute: 2 O2 Frequency: Continuous Keep PO Greater than or Equal to (%): 94 Routine Lab Work: CBC (within 3 days) and BMP (within 3 days) Code Status: DNRCC-A Therapies Weight Bearing: Weight bearing as tolerated Physical Therapy: Eval and Treat Occupational Therapy: Eval and Treat Problem/Diagnosis (1) Left arm weakness: Status: Acute Allergies/Procedures Done in Hospital Allergies codeine Allergy (Mild, Verified 01/31/21 11:04) HIVES Penicillins Allergy (Verified 01/31/21 11:04) Anaphylaxis Procedures: 2-D Echocardiogram Type of Care/Length of Stay Estimated LOS: Convalescent Care Less Than 30 days Type of Care Needed: Skilled Rehab Potential: Good Prognosis: Good Additional Orders/Day of Discharge Day of Discharge: 02/06/21 Dietary and Speech Recommendations Dietitian Recommendations/Changes: Will continue liberalized regular diet as ordered and encourage intake at meals. Monitor need to restrict carbohydrates. Will continue 120ml ensure enlive 4 times per day w/ medpass as tolerated. Will add magic cup BID w/ lunch and dinner for tolerance. Speech Linguistic Eval Summary: Orientation: Pt fully oriented with exception of her age. Pt self-corrected her age when prompted by BRICK POINTER after answering incorrectly 2X. Auditory Comprehension: Pt followed commands with 100% accuracy for oral [facility] exam. She answered questions appropriately throughout session. Verbal Expression: Pt participated in complex conversation, reporting personal history with fluent speech and no concerns for difficulty with word retrieval. Speech clarity appeared to be WNL. Memory: Pt was able to recall participation in MRI on this date. She recalled the symptoms that brought her to the hospital; however, she reported concerns for poor memory of events of previous date. She immediately recalled 3 words with 3/3 acc. With 5 minute delay, she recalled words again with 3/3 acc. The patient appears to have resolving confusion at this time. Will follow 1-2X to ensure resolving concerns for difficulty with memory and orientation as patient lives home alone. Discharge Plan Admission Admit Date/Time: 02/01/21 15:35 Primary Reason for Your Visit: Debility Attending Provider: Julia Noonan Primary Care Provider: Patel Veliz Chi Instructions Patient Instructions: ED Chest Pain, Noncardiac Discharge Orders/Prescriptions Prescriptions: No Action Myrbetriq 25 mg tablet extended release 24 hr 25 mg PO BID RF: 0 omeprazole 20 mg capsule,delayed release(DR/EC) 20 mg PO DAILY RF: 0 sennosides-docusate sodium [Senexon-S] 8.6-50 mg tablet 2 tab PO BID RF: 0 calcium carbonate [Oyster Shell Calcium] 500 mg calcium (1,250 mg) tablet 500 mg PO BID RF: 0 fluticasone furoate-vilanterol 100-25 mcg/dose blister with device 2 puff INHALATION DAILY RF: 0 albuterol sulfate [Ventolin HFA] 90 mcg/actuation HFA aerosol inhaler 1 inh INHALATION BID PRN PRN (Reason: COPD) RF: 0 brimonidine 0.15 % drops 1 drp OPHTHALMIC BID RF: 0 benztropine 2 mg tablet 2 mg PO BID Qty: 60 RF: 3 oxcarbazepine 600 mg tablet 600 mg PO BID Qty: 60 RF: 3 phenobarbital 32.4 mg tablet 32.4 mg PO BID Qty: 60 RF: 3 potassium chloride 20 MEQ tablet 20 meq PO BID RF: 0 levothyroxine 50 MCG tablet 50 mcg PO DAILY RF: 0 duloxetine 20 MG capsule,delayed release(DR/EC) 20 mg PO DAILY RF: 0 mirtazapine 7.5 mg tablet 7.5 mg PO QHS RF: 0 ropinirole 2 MG tablet 2 mg PO QHS RF: 0 acetaminophen 325 MG tablet 650 mg PO Q6H PRN PRN (Reason: Pain Score 1-10/Temp > 100.7 F) RF: 0 multivitamin Tablet 1 tab PO 1200 RF: 0 cholecalciferol (vitamin D3) 1,250 mcg (50,000 unit) capsule 1,250 mcg PO WE RF: 0 methadone 10 mg tablet 10 mg PO TID 5 Days Qty: 15 RF: 0 ferrous sulfate [FeroSul] 325 mg (65 mg iron) Tablet 325 mg PO 1200,1700 Qty: 60 RF: 1 ondansetron 4 mg Tablet,Disintegrating 4 mg PO Q6H PRN (Reason: Nausea) RF: 0 loperamide [Imodium A-D] 2 mg Tablet 2 mg PO Q6H PRN (Reason: Diarrhea) RF: 0 mineral oil Enema 118 ml TN DAILY PRN (Reason: Constipation) RF: 0 bisacodyl 10 mg Suppository 10 mg TN DAILY PRN (Reason: Constipation) RF: 0 atorvastatin 40 mg Tablet 40 mg PO QHS Qty: 30 RF: 0 polyethylene glycol 3350 17 gram Powder In Packet 17 g PO DAILY Qty: 0 RF: 0 nitroglycerin 0.4 mg Tablet, Sublingual 0.4 mg sublingual Q5M PRN (Reason: CHEST PAIN) Qty: 30 RF: 0 Metamucil Fiber Singles 3.4 gram Powder In Packet 1 packet PO TID Qty: 0 RF: 0 aspirin 81 MG tablet,delayed release (DR/EC) 81 mg PO 1200 Qty: 30 RF: 0 temazepam 30 mg Capsule 30 mg PO QHS PRN (Reason: Sleep) Qty: 0 RF: 0 nicotine 21 mg/24 hr patch 24 hour 1 patch TOPICAL DAILY Qty: 30 RF: 0 midodrine 10 mg tablet 10 mg PO TID Qty: 90 RF: 0 magnesium hydroxide [Milk of Magnesia] 400 mg/5 mL suspension 5 ml PO DAILY PRN (Reason: constipation) Qty: 150 RF: 0 docusate sodium [Colace] 100 mg capsule 100 mg PO DAILY Qty: 10 RF: 0 hydrocortisone [Procto-Med HC] 2.5 % cream with perineal applicator 1 applic TN DAILY PRN (Reason: hemorrhoids) Qty: 30 RF: 0 Referrals / Follow Up: Patel Veliz Chi, MD [Primary Care Provider] -
[2021-02-06] MEDS: Docusate Sodium 100 MG Capsule PO (10:11)
[2021-02-06] MEDS: Pantoprazole Sodium 20 MG Tablet PO (10:11)
[2021-02-06] MEDS: Calcium (Elemental) 500 MG Tablet PO ×2 (10:11→13:26)
[2021-02-06] MEDS: BRIMONIDINE 0.15% 5 ML Bottle 1 DRP OPHTHALMIC ×2 (10:12→21:52)
[2021-02-06] MEDS: Benztropine 2 MG Tablet PO ×2 (10:12→21:52)
[2021-02-06] MEDS: Potassium Chloride Oral Tablet 20 MEQ PO ×2 (10:13→21:52)
[2021-02-06] MEDS: Mirabegron 25 MG TAB.ER.24H PO ×2 (10:13→21:51)
[2021-02-06] MEDS: Senna/Docusate Sodium 1 Tablet 2 TABLET PO (10:14)
[2021-02-06] MEDS: OXcarbazepine 600 MG Tablet PO ×2 (10:14→21:52)
--- NOTE | 2021-02-06 10:20 | CASEMGMT ---
SW called [facility] and left a voice mail requesting return call regarding status of case. Michela Rosas MC KAY STITCHER EMMA
[2021-02-06] MEDS: Phenobarbital 32.4 MG Tablet PO ×2 (10:22→21:51)
[2021-02-06] MEDS: Polyethylene Glycol 3350 17 GM PACKET PO (10:22)
--- NOTE | 2021-02-06 10:35 | CASEMGMT ---
SW [facility] He said patient's case is 3rd in line to go to reviewer. The reviewer with then look at the case, interview patient and SW, and make their recommendation. Case then goes back to [facility] and a committee meets regarding case and then it goes back to the state to approve it. He said it will be next week. Plan: [facility] pending approval from the state and will also need another pre-cert as the other one . Michela Rosas ELECTRIC SHAVER MECHANIC EMMA
--- NOTE | 2021-02-06 11:19 | PCM.PN.HOSP ---
Documented by User: Rolando MARTINEZ 02/06/21 11:22 Subjective Subjective Patient is a 70-year-old female comfortably resting in a chair, alert and oriented x3. Denies chest pain, shortness of breath, palpitations, hemoptysis, sputum production, fever, chills, N/V/D. Objective Data Objective Data Vital Signs: Vital Signs Temp Pulse Resp BP Pulse Ox 98.4 F 82 15 129/100 H 97 02/06/21 10:03 02/06/21 10:03 02/06/21 10:03 02/06/21 10:03 02/06/21 10:49 Oxygen Flow Rate (L/min) 2 Oxygen Delivery Method Nasal Cannula Weight: 171 lb 8.314 oz Body Mass Index (BMI) 28.5 Intake & Output: Intake and Output for Last 24 Hours 02/04/21 02/05/21 02/06/21 23:59 23:59 23:59 Intake Total 860 / 860 1100 / 1100 150 / 150 Output Total 300 / 300 Balance 560 / 560 1100 / 1100 150 / 150 Medical Nutrition Assessment Dietitian: Malnutrition Criteria Met Start: 02/02/21 16:55 Freq: Status: Active Protocol: Document 02/06/21 11:03 AG (Rec: 02/06/21 11:04 [id number]) Nutrition Malnutrition Evidence of Malnutrition Exists Yes Malnutrition (severe): Chronic Evidenced By Suboptimal Energy Intake ( Severe),Weight Loss (Severe) Clinical Problem Chronic Disease or Condition Related Malnutrition Etiology Severe protein/calorie malnutrition in the context of chronic disease/debility related to weakness/nausea and inability to consume adequate energy/nutrition Signs/Symptoms as evidenced by 9% wt loss x past 2 months, 19% wt loss x past 4 months, PO meeting less than 50% estimated nutrition needs x past 4-6 months per pt report and taking less than 50% meals since admit. Status Active Problem Recommendation Dietitian Recommendations/Changes Will continue liberalized regular diet (consistency/ texture per TRAILER SECTIONS ASSEMBLER) as ordered and encourage intake at meals. Will continue 120ml ensure enlive 4 times per day and magic cup BID w/ lunch and dinner. Lab / Micro Data Result Diagrams: 02/06/21 06:00 02/06/21 06:00 Labs: Laboratory Results - last 24 hr 02/06/21 06:00: WBC 7.1, RBC 3.87 L, Hgb 11.2 L, Hct 35.7 L, MCV 92.2, MCH 28.9, MCHC 31.4 L, RDW Std Deviation 47.3 H, RDW Coeff of Jordin 14.0, Plt Count 309, MPV 9.6, Immature Gran % (Auto) 0.400, Neut % (Auto) 58.2, Lymph % (Auto) 30.3, Hardin % (Auto) 7.9, Eos % (Auto) 2.8, Baso % (Auto) 0.4, Absolute Neuts (auto) 4.1, Absolute Lymphs (auto) 2.15, Nucleated RBC % 0 02/06/21 06:00: Sodium 135 L, Potassium 3.9, Chloride 99, Carbon Dioxide 30.0, Anion Gap 6, BUN 11, Creatinine 0.32 L, Estim Creat Clear Calc 46.43, Est GFR (MDRD) Af Amer 257, Est GFR (MDRD) Non-Af 212, BUN/Creatinine Ratio 33.8 H, Glucose 116 H, Calcium 8.9 Physical Exam Const alert, oriented x3 and no apparent distress HEENT head/scalp atraumatic and moist oral mucous membranes Head and Scalp: normocephalic Eyes PERRL, EOMs intact bilaterally and conjunctivae normal Neck no lymphadenopathy, supple and no JVD Resp normal respiratory effort, no retractions, no use of accessory muscles and clear to auscultation bilaterally Cardio regular rate, regular rhythm, no murmurs and no JVD GI normal to inspection, nondistended, normoactive bowel sounds and soft to palpation Extremity normal to inspection, full ROM and no clubbing, cyanosis or edema Skin no rashes or lesions noted, no wounds and skin turgor normal Neuro CN's II-XII intact bilaterally Psych affect normal Assessment & Plan Assessment/Plan (1) Left arm weakness: PLAN: Day 5: See subjective. Discharge planning: Awaiting SNF pre-CERT to [facility], most likely will take place next week. 1) left-sided weakness CVA ruled out. Brain CT with chronic changes. MRI of brain without acute infarct. MRA of head with no significant stenosis or aneurysm. MRA of neck without obvious acute thrombosis. Disposition as above. 2) seizure history Continue oxcarbazepine, benztropine and phenobarbital. 3) COPD Not in acute exacerbation, continue home medication regimen. 4) CHUY Continue CPAP nightly. 5) hypothyroidism Continue Synthroid 6) depression/anxiety Continue Remeron, 7) degenerative disc disease Continue methadone. 8) stress bladder incontinence Continue mirabegron. 9) tobacco dependence Cessation encouraged, nicotine patch ordered. DVT prophylaxis- Lovenox Patient seen by Rolando Palencia PA-C, under the supervision of Dr. Noonan. Documented by User: Dr. Julia Noonan MD 02/06/21 13:15 Objective Data Lab / Micro Data Result Diagrams: 02/06/21 06:00 02/06/21 06:00 Charges/Coding Addendum Addendum: This patient was seen in conjunction with JUAN Cruz. I have independently interviewed and examined the patient and reviewed pertinent historical, laboratory, and other data. Please refer to JUAN Cruz's note for his patient's presentation, findings, and recommendations. I have reviewed and his note and concur with his documentation Patient was seen and examined. No acute events overnight. Seen working with therapy. Physical Exam: Gen: Anxious, not pale, not jaundiced CVS:HS I +II, regular, no murmurs RESP: CTA GI: BS present and normal, soft, nontender, no palpable organs EXT:No edema ASSESSMENT: 1. Left arm weakness, acute CVA ruled out 2. Seizure disorder 3. COPD with chronic home oxygen use 4. CHUY 5. Restless leg syndrome 6. Hypothyroidism 7. Anxiety/depression Plan: Waiting on [facility], no murmurs Hold midodrine on account of elevated blood pressure Visit Charges Inpatient E&M: 77298 Subs Hosp L2
[2021-02-06] MEDS: Ferrous Sulfate 325 MG Tablet PO (13:26)
[2021-02-06] MEDS: Aspirin E.C. 81 MG Tablet PO (13:26)
[2021-02-06] MEDS: Psyllium 1 PACKET PO (13:26)
--- NOTE | 2021-02-06 14:13 | CASEMGMT ---
GRAHAM spoke with [facility] and let them know that [facility] said we will not have an answer from them until next week. SW faxed updates. SW attempted to call patient's son Yaakov and son in law Samson. Yaakov's phone has a voice mail that has not been set up. Samson's phone went right to voice mail and there is no identifying information. SW will try again before the end of the day to call them and update one of them at least. Michela Rosas CLINICAL NURSE EDUCATOR EMMA
--- NOTE | 2021-02-06 14:53 | CASEMGMT ---
GRAHAM received a call from Kristel Lynn with [facility]. She interviewed SW about patient. She will call patient and interview her as well. Michela CARTER
[2021-02-06] MEDS: proCHLORPERazine 10 MG/2 ML Vial IV (15:18)
--- NOTE | 2021-02-06 16:02 | CASEMGMT ---
GRAHAM was able to talk with both Samson and Yaakov. GRAHAM updated them that patient will be here through the weekend. Michela Rosas CELL TENDER HELPER EMMA
[2021-02-06] MEDS: Pramipexole Di-HCl 1 MG Tablet PO (21:51)
[2021-02-06] MEDS: Atorvastatin Calcium 40 MG Tablet PO (21:51)
[2021-02-06] MEDS: Mirtazapine 15 MG Tablet 7.5 MG PO (21:52)
[2021-02-07] VITALS (12 sets, daily range): BP systolic 98–143; BP diastolic 63–88; PULSE 84–98; RESP 16–18; TEMP 36.8–37.6; O2SAT 94–98
[2021-02-07] MEDS: Methadone 10 MG Tablet PO ×3 (05:53→21:52)
[2021-02-07] MEDS: Levothyroxine 50 MCG Tablet PO (05:53)
[2021-02-07] MEDS: Enoxaparin 40 MG/0.4 ML Syringe SC (05:54)
--- NOTE | 2021-02-07 08:42 | RAD_ITS ---
STUDY: X-RAY - LEFT SHOULDER REASON FOR EXAM: Female, 70 years old. Left shoulder pain TECHNIQUE: 2 view(s) of the shoulder. COMPARISON: February 01, 2021 FINDINGS: There is moderate degenerative arthrosis of the glenohumeral articulation. Normal acromioclavicular joint. Normal acromion. No fractures seen. The soft tissue structures are unremarkable. Normal visualized pulmonary apex. RAD/Shoulder min 2 Views IMPRESSION: Degenerative changes of the shoulder. Electronically Signed: Bright Carpio MD at 17:16 EDT , Service support ,
[2021-02-07] MEDS: Mirabegron 25 MG TAB.ER.24H PO ×2 (09:20→21:42)
[2021-02-07] MEDS: Senna/Docusate Sodium 1 Tablet 2 TABLET PO ×2 (09:20→21:43)
[2021-02-07] MEDS: Pantoprazole Sodium 20 MG Tablet PO (09:20)
[2021-02-07] MEDS: Potassium Chloride Oral Tablet 20 MEQ PO ×2 (09:21→21:40)
[2021-02-07] MEDS: OXcarbazepine 600 MG Tablet PO ×2 (09:21→21:43)
[2021-02-07] MEDS: Benztropine 2 MG Tablet PO ×2 (09:22→21:40)
[2021-02-07] MEDS: Docusate Sodium 100 MG Capsule PO (09:22)
[2021-02-07] MEDS: Calcium (Elemental) 500 MG Tablet PO ×2 (09:22→11:03)
[2021-02-07] MEDS: BRIMONIDINE 0.15% 5 ML Bottle 1 DRP OPHTHALMIC ×2 (09:22→21:39)
[2021-02-07] MEDS: 0.9% Saline Lock 10 ML Syringe IV ×4 (09:27→23:42)
[2021-02-07] MEDS: Phenobarbital 32.4 MG Tablet PO ×2 (09:27→21:52)
[2021-02-07] MEDS: Polyethylene Glycol 3350 17 GM PACKET PO (09:27)
[2021-02-07] MEDS: Lidocaine 5% Patch 2 PATCH TOPICAL (11:00)
[2021-02-07] MEDS: Ferrous Sulfate 325 MG Tablet PO ×2 (11:02→17:57)
[2021-02-07] MEDS: Aspirin E.C. 81 MG Tablet PO (11:03)
--- NOTE | 2021-02-07 11:45 | PN.HOSP_ITS ---
Documented by User: Rolando MARTINEZ 02/07/21 11:48 Subjective Subjective Patient is a 70-year-old female comfortably resting in a chair, alert and oriented x3. Denies chest pain, shortness of breath, palpitations, hemoptysis, sputum production, fever, chills, N/V/D. Objective Data Objective Data Vital Signs: Vital Signs Temp Pulse Resp BP Pulse Ox 98.6 F 96 16 128/63 H 96 02/07/21 09:20 02/07/21 09:20 02/07/21 09:20 02/07/21 09:20 02/07/21 09:20 Oxygen Flow Rate (L/min) 2 Oxygen Delivery Method Nasal Cannula Weight: 171 lb 8.314 oz Body Mass Index (BMI) 28.5 Intake & Output: Intake and Output for Last 24 Hours 02/05/21 02/06/21 02/07/21 23:59 23:59 23:59 Intake Total 1100 / 1100 1350 / 1350 60 / 60 Output Total 100 / 100 200 / 200 Balance 1100 / 1100 1250 / 1250 -140 / -140 Medical Nutrition Assessment Dietitian: Malnutrition Criteria Met Start: 02/02/21 16:55 Freq: Status: Active Protocol: Document 02/06/21 11:03 AG (Rec: 02/06/21 11:04 [id number]) Nutrition Malnutrition Evidence of Malnutrition Exists Yes Malnutrition (severe): Chronic Evidenced By Suboptimal Energy Intake ( Severe),Weight Loss (Severe) Clinical Problem Chronic Disease or Condition Related Malnutrition Etiology Severe protein/calorie malnutrition in the context of chronic disease/debility related to weakness/nausea and inability to consume adequate energy/nutrition Signs/Symptoms as evidenced by 9% wt loss x past 2 months, 19% wt loss x past 4 months, PO meeting less than 50% estimated nutrition needs x past 4-6 months per pt report and taking less than 50% meals since admit. Status Active Problem Recommendation Dietitian Recommendations/Changes Will continue liberalized regular diet (consistency/ texture per LAUNDRY ROOM ATTENDANT) as ordered and encourage intake at meals. Will continue 120ml ensure enlive 4 times per day and magic cup BID w/ lunch and dinner. Lab / Micro Data Result Diagrams: 02/06/21 06:00 02/06/21 06:00 Physical Exam Const alert, oriented x3 and no apparent distress HEENT head/scalp atraumatic and moist oral mucous membranes Head and Scalp: normocephalic Eyes PERRL, EOMs intact bilaterally and conjunctivae normal Neck no lymphadenopathy, supple and no JVD Resp normal respiratory effort, no retractions, no use of accessory muscles and clear to auscultation bilaterally Cardio regular rate, regular rhythm, no murmurs and no JVD GI normal to inspection, nondistended, normoactive bowel sounds, soft to palpation and non-tender Extremity normal to inspection, full ROM and no clubbing, cyanosis or edema Skin no rashes or lesions noted, no wounds, skin turgor normal and no jaundice Neuro CN's II-XII intact bilaterally Psych affect normal Assessment & Plan Assessment/Plan (1) Left arm weakness: PLAN: Day 6: See subjective. Discharge planning: Awaiting SNF pre-CERT to [facility], most likely will take place next week. 1) left-sided weakness CVA ruled out. Brain CT with chronic changes. MRI of brain without acute infarct. MRA of head with no significant stenosis or aneurysm. MRA of neck without obvious acute thrombosis. Disposition as above. 2) seizure history Continue oxcarbazepine, benztropine and phenobarbital. 3) COPD Not in acute exacerbation, continue home medication regimen. 4) CHUY Continue CPAP nightly. 5) hypothyroidism Continue Synthroid 6) depression/anxiety Continue Remeron, 7) degenerative disc disease Continue methadone. 8) stress bladder incontinence Continue mirabegron. 9) tobacco dependence Cessation encouraged, nicotine patch ordered. DVT prophylaxis- Lovenox Patient seen by Rolando Palencia PA-C, under the supervision of Dr. Noonan. Documented by User: Dr. Julia Noonan MD 02/07/21 12:33 Objective Data Lab / Micro Data Result Diagrams: 02/06/21 06:00 02/06/21 06:00 Charges/Coding Addendum Addendum: This patient was seen in conjunction with JUAN Cruz. I have independently interviewed and examined the patient and reviewed pertinent historical, laboratory, and other data. Please refer to JUAN Cruz's note for his patient's presentation, findings, and recommendations. I have reviewed and his note and concur with his documentation Patient was seen and examined. She complains of pain in her left shoulder. She has a bruise over the left shoulder. She is unable to lift the shoulder above her head. Physical Exam: Gen: Anxious, not pale, not jaundiced CVS:HS I +II, regular, no murmurs RESP: CTA GI: BS present and normal, soft, nontender, no palpable organs EXT:No edema, tenderness on palpation of the left shoulder, resolving bruise at the humeral head ASSESSMENT: 1. Left arm weakness, acute CVA ruled out 2. Left upper extremity pain secondary to fall 3. Seizure disorder 4. COPD with chronic home oxygen use 5. CHUY 6. Restless leg syndrome 7. Hypothyroidism 8. Anxiety/depression Plan: We will get a left shoulder x-ray Lidoderm patches to the left shoulder Tylenol on a scheduled basis Continue rest of her other medications Visit Charges Inpatient E&M: 66436 Subs Hosp L2
[2021-02-07] MEDS: Acetaminophen 500 MG Tablet 1000 MG PO ×2 (13:29→21:43)
[2021-02-07] MEDS: Ondansetron 4 MG/2 ML Vial IV ×2 (13:32→23:40)
[2021-02-07] MEDS: Atorvastatin Calcium 40 MG Tablet PO (21:41)
[2021-02-07] MEDS: Mirtazapine 15 MG Tablet 7.5 MG PO (21:42)
[2021-02-07] MEDS: Pramipexole Di-HCl 1 MG Tablet PO (21:42)
[2021-02-07] MEDS: Temazepam 15 MG Capsule 30 MG PO (23:38)
[2021-02-08] VITALS (10 sets, daily range): BP systolic 121–135; BP diastolic 64–89; PULSE 89–108; RESP 16–18; TEMP 37.1–37.5; O2SAT 92–97
--- NOTE | 2021-02-08 00:04 | NURSING ---
Patches removed x2 from left shoulder
[2021-02-08 07:00] LABS: Absolute Lymphocyte Count 1.42 X10^3/uL (0.83-4.51); Absolute Neutrophil Count 8.9 X10^3/uL (2.0-7.7); Basophil# 0.04 X10^3/uL; Basophil% 0.4 % (0-1); Eosinophil# 0.09 X10^3/uL; Eosinophils% 0.8 % (0-5); Hematocrit 38.4 % (37-47); Hemoglobin 12.1 g/dL (12.0-15.0); Lymphocyte # 1.42 X10^3/ul (0.83-4.51); Lymphocyte % 12.6 % (19-41); Mean Corp Hgb Conc 31.5 g/dL (32-36); Mean Corpuscular Hgb 29.2 pg (27.0-32.0); Mean Corpuscular Volume 92.8 fL (81-99); Mean Platelet Vol. 9.7 fl (6.2-12.0); Monocyte# 0.71 X10^3/uL; Monocyte% 6.3 % (0-10); NRBC Flagged by Analyzer 0 % (0-5); Neutrophil # 8.91 X10^3/uL (2.7-7.7); Neutrophil % 79.3 % (47-70); Platelet Count 349 K/mm3 (150-450); RBC Distribution Width SD 47.2 fl (35.1-43.9); Red Blood Count 4.14 M/mm3 (4.2-5.4); White Blood Count 11.2 K/mm3 (4.4-11.0)
[2021-02-08] MEDS: Ondansetron 4 MG/2 ML Vial IV ×2 (07:18→16:24)
[2021-02-08] MEDS: 0.9% Saline Lock 10 ML Syringe IV ×2 (07:18→16:24)
[2021-02-08 07:22] LABS: Anion Gap 5 (5-15); BUN 14 mg/dL (7-18); BUN/Creat Ratio 37.3 RATIO (10-20); Calcium,Total 8.8 mg/dL (8.5-10.1); Chloride 98 mmol/L (98-107); Creatinine, Serum 0.38 mg/dL (0.55-1.02); EST Glomerular Filtration Rate 180 mL/min (>60); Est Glom Filt Rate - Afr Amer 218 mL/min (>60); Estimated Creatinine Clearance 46.43 ml/min; Glucose 208 mg/dL (74-106); Potassium 3.9 mmol/L (3.5-5.1); Sodium Level 135 mmol/L (136-145)
[2021-02-08] MEDS: Mirabegron 25 MG TAB.ER.24H PO ×2 (09:15→21:42)
[2021-02-08] MEDS: Senna/Docusate Sodium 1 Tablet 2 TABLET PO ×2 (09:15→21:42)
[2021-02-08] MEDS: OXcarbazepine 600 MG Tablet PO ×2 (09:15→21:42)
[2021-02-08] MEDS: Lidocaine 5% Patch 2 PATCH TOPICAL (09:16)
[2021-02-08] MEDS: BRIMONIDINE 0.15% 5 ML Bottle 1 DRP OPHTHALMIC ×2 (09:16→21:43)
[2021-02-08] MEDS: Benztropine 2 MG Tablet PO ×2 (09:16→21:42)
[2021-02-08] MEDS: Polyethylene Glycol 3350 17 GM PACKET PO (09:20)
[2021-02-08] MEDS: Phenobarbital 32.4 MG Tablet PO ×2 (09:20→21:41)
[2021-02-08] MEDS: Docusate Sodium 100 MG Capsule PO (09:21)
[2021-02-08] MEDS: proCHLORPERazine 5 MG Tablet PO ×2 (10:15→20:11)
--- NOTE | 2021-02-08 11:10 | PN.HOSP_ITS ---
Documented by User: Rolando MARTINEZ 02/08/21 11:21 Subjective Subjective Patient is a 70-year-old female resting in bed, alert and orient x3. Patient reports ongoing nausea and vomiting with some coffee-ground emesis. Denies any other complaints. Denies chest pain, shortness of breath, palpitations, hemo ptysis, sputum production, fever, chills, N/V/D. Objective Data Objective Data Vital Signs: Vital Signs Temp Pulse Resp BP Pulse Ox 98.8 F 101 H 16 124/89 H 97 02/08/21 09:15 02/08/21 09:15 02/08/21 09:15 02/08/21 09:15 02/08/21 09:15 Oxygen Flow Rate (L/min) 2 Oxygen Delivery Method Nasal Cannula Weight: 171 lb 8.314 oz Body Mass Index (BMI) 28.5 Intake & Output: Intake and Output for Last 24 Hours 02/06/21 02/07/21 02/08/21 23:59 23:59 23:59 Intake Total 1350 / 1350 860 / 1100 470 / 470 Output Total 100 / 100 450 / 850 800 / 800 Balance 1250 / 1250 410 / 250 -330 / -330 Medical Nutrition Assessment Dietitian: Malnutrition Criteria Met Start: 02/02/21 16:55 Freq: Status: Active Protocol: Document 02/06/21 11:03 (Rec: 02/06/21 11:04 [id number]) Nutrition Malnutrition Evidence of Malnutrition Exists Yes Malnutrition (severe): Chronic Evidenced By Suboptimal Energy Intake ( Severe),Weight Loss (Severe) Clinical Problem Chronic Disease or Condition Related Malnutrition Etiology Severe protein/calorie malnutrition in the context of chronic disease/debility related to weakness/nausea and inability to consume adequate energy/nutrition Signs/Symptoms as evidenced by 9% wt loss x past 2 months, 19% wt loss x past 4 months, PO meeting less than 50% estimated nutrition needs x past 4-6 months per pt report and taking less than 50% meals since admit. Status Active Problem Recommendation Dietitian Recommendations/Changes Will continue liberalized regular diet (consistency/ texture per POCKETS AND PIECES NECKTIE OPERATOR) as ordered and encourage intake at meals. Will continue 120ml ensure enlive 4 times per day and magic cup BID w/ lunch and dinner. Lab / Micro Data Result Diagrams: 02/08/21 06:24 02/08/21 06:24 Labs: Laboratory Results - last 24 hr 02/08/21 06:24: WBC 11.2 H, RBC 4.14 L, Hgb 12.1, Hct 38.4, MCV 92.8, MCH 29.2, MCHC 31.5 L, RDW Std Deviation 47.2 H, RDW Coeff of Jordin 14.0, Plt Count 349, MPV 9.7, Immature Gran % (Auto) 0.600, Neut % (Auto) 79.3 H, Lymph % (Auto) 12.6 L, [place] % (Auto) 6.3, Eos % (Auto) 0.8, Baso % (Auto) 0.4, Absolute Neuts (auto) 8.9 H, Absolute Lymphs (auto) 1.42, Nucleated RBC % 0 02/08/21 06:24: Sodium 135 L, Potassium 3.9, Chloride 98, Carbon Dioxide 32.0, Anion Gap 5, BUN 14, Creatinine 0.38 L, Estim Creat Clear Calc 46.43, Est GFR (MDRD) Af Amer 218, Est GFR (MDRD) Non-Af 180, BUN/Creatinine Ratio 37.3 H, Glucose 208 H, Calcium 8.8 Micro: Microbiology 02/08/21 06:00 Gastric Fluid/Contents Gastric Occult Blood - Final Radiography Diagnostic Testing: Radiology Impression Shoulder X-Ray 02/07/21 08:42 IMPRESSION: Degenerative changes of the shoulder. Electronically Signed: Bright Carpio MD at 17:16 EDT , Service support , Physical Exam Const alert, oriented x3 and no apparent distress HEENT head/scalp atraumatic and moist oral mucous membranes Head and Scalp: normocephalic Eyes PERRL, EOMs intact bilaterally and conjunctivae normal Neck no lymphadenopathy, supple and no JVD Resp normal respiratory effort, no retractions, no use of accessory muscles and clear to auscultation bilaterally Cardio regular rate, regular rhythm, no murmurs and no JVD GI normal to inspection, nondistended, normoactive bowel sounds, soft to palpation and non-tender Extremity normal to inspection, full ROM and no clubbing, cyanosis or edema Skin no rashes or lesions noted, no wounds, skin turgor normal and no jaundice Neuro CN's II-XII intact bilaterally Psych affect normal Assessment & Plan Assessment/Plan (1) Left arm weakness: PLAN: Day 7: See subjective. Discharge planning: Awaiting SNF pre-CERT to [facility], most likely will take place next week. 1) left-sided weakness CVA ruled out. Brain CT with chronic changes. MRI of brain without acute infarct. MRA of head with no significant stenosis or aneurysm. MRA of neck without obvious acute thrombosis. Disposition as above. 2) seizure history Continue oxcarbazepine, benztropine and phenobarbital. 3) COPD Not in acute exacerbation, continue home medication regimen. 4) CHUY Continue CPAP nightly. 5) hypothyroidism Continue Synthroid 6) depression/anxiety Continue Remeron, 7) degenerative disc disease Continue methadone. 8) stress bladder incontinence Continue mirabegron. 9) tobacco dependence Cessation encouraged, nicotine patch ordered. 10) Nausea and vomiting Patient developed an episode of N/V overnight, some coffee ground emesis although hemoglobin is stable and vital signs do not demonstrate any evidence of hemodynamic compromise. Patient does have a history of acute gastritis. Plan; continue Zofran, prochlorperazine initiated, continue IV Protonix. DVT prophylaxis- Lovenox Patient seen by Rolando Palencia PA-C, under the supervision of Dr. Noonan. Documented by User: Dr. Julia Noonan MD 02/08/21 12:48 Objective Data Lab / Micro Data Result Diagrams: 02/08/21 06:24 02/08/21 06:24 Charges/Coding Addendum Addendum: This patient was seen in conjunction with JUAN Cruz. I have independently interviewed and examined the patient and reviewed pertinent historical, laboratory, and other data. Please refer to JUAN Cruz's note for his patient's presentation, findings, and recommendations. I have reviewed and his note and concur with his documentation Patient was seen and examined. Overnight, she is reported to have coffee-ground emesis. Gastro-occult blood was negative. She was started on IV PPI. Physical Exam: Gen: Anxious, not pale, not jaundiced CVS:HS I +II, regular, no murmurs RESP: CTA GI: BS present and normal, soft, nontender, no palpable organs EXT:No edema, tenderness on palpation of the left shoulder, resolving bruise at the humeral head ASSESSMENT: 1. Left arm weakness, acute CVA ruled out 2. Left upper extremity pain secondary to fall 3. Seizure disorder 4. COPD with chronic home oxygen use 5. CHUY 6. Restless leg syndrome 7. Hypothyroidism 8. Anxiety/depression Plan: Transition from IV PPI to oral PPI daily Continue rest of her other medications Continue to await discharge planning to custodial facility Visit Charges Inpatient E&M: 71719 Subs Hosp L2
[2021-02-08] MEDS: Methadone 10 MG Tablet PO ×2 (13:16→21:41)
[2021-02-08] MEDS: Acetaminophen 500 MG Tablet 1000 MG PO ×2 (13:16→20:11)
[2021-02-08] MEDS: Bisacodyl 10 MG Suppository RC (13:18)
[2021-02-08] MEDS: Pramipexole Di-HCl 1 MG Tablet PO (21:42)
[2021-02-08] MEDS: Potassium Chloride Oral Tablet 20 MEQ PO (21:42)
[2021-02-08] MEDS: Atorvastatin Calcium 40 MG Tablet PO (21:42)
[2021-02-08] MEDS: Mirtazapine 15 MG Tablet 7.5 MG PO (21:42)
[2021-02-09] VITALS (14 sets, daily range): BP systolic 109–139; BP diastolic 64–97; PULSE 70–103; RESP 14–18; TEMP 36.7–37; O2SAT 95–100
[2021-02-09] MEDS: Acetaminophen 500 MG Tablet 1000 MG PO ×3 (05:10→21:14)
[2021-02-09] MEDS: Methadone 10 MG Tablet PO ×3 (05:10→21:18)
[2021-02-09] MEDS: Levothyroxine 50 MCG Tablet PO (05:10)
[2021-02-09 06:19] LABS: Absolute Lymphocyte Count 2.38 X10^3/uL (0.83-4.51); Absolute Neutrophil Count 4.5 X10^3/uL (2.0-7.7); Basophil# 0.03 X10^3/uL; Basophil% 0.4 % (0-1); Eosinophil# 0.22 X10^3/uL; Eosinophils% 2.8 % (0-5); Hematocrit 35.8 % (37-47); Hemoglobin 11.7 g/dL (12.0-15.0); Lymphocyte # 2.38 X10^3/ul (0.83-4.51); Lymphocyte % 29.8 % (19-41); Mean Corp Hgb Conc 32.7 g/dL (32-36); Mean Corpuscular Volume 91.8 fL (81-99); Mean Platelet Vol. 9.5 fl (6.2-12.0); Monocyte# 0.76 X10^3/uL; Monocyte% 9.5 % (0-10); NRBC Flagged by Analyzer 0 % (0-5); Neutrophil # 4.51 X10^3/uL (2.7-7.7); Neutrophil % 56.5 % (47-70); Platelet Count 314 K/mm3 (150-450); RBC Distribution Width CV 14.4 % (11.6-14.6)
[2021-02-09] MEDS: BRIMONIDINE 0.15% 5 ML Bottle 1 DRP OPHTHALMIC ×2 (09:58→21:10)
[2021-02-09] MEDS: Calcium (Elemental) 500 MG Tablet PO ×2 (09:58→13:02)
[2021-02-09] MEDS: Senna/Docusate Sodium 1 Tablet 2 TABLET PO (09:59)
[2021-02-09] MEDS: Docusate Sodium 100 MG Capsule PO (10:00)
[2021-02-09] MEDS: OXcarbazepine 600 MG Tablet PO ×2 (10:00→21:14)
[2021-02-09] MEDS: Mirabegron 25 MG TAB.ER.24H PO ×2 (10:00→21:12)
[2021-02-09] MEDS: Lidocaine 5% Patch 2 PATCH TOPICAL (10:01)
[2021-02-09] MEDS: Potassium Chloride Oral Tablet 20 MEQ PO ×2 (10:02→21:11)
[2021-02-09] MEDS: Benztropine 2 MG Tablet PO ×2 (10:02→21:11)
[2021-02-09] MEDS: Phenobarbital 32.4 MG Tablet PO ×2 (10:18→21:18)
[2021-02-09] MEDS: Pantoprazole Sodium 40 MG Tablet PO (10:18)
[2021-02-09] MEDS: 0.9% Saline Lock 10 ML Syringe IV ×2 (10:19→16:50)
[2021-02-09] MEDS: Ondansetron 4 MG/2 ML Vial IV ×2 (10:19→16:50)
--- NOTE | 2021-02-09 11:21 | PN.HOSP_ITS ---
Documented by User: Rolando MARTINEZ 02/09/21 11:24 Subjective Subjective Patient is a 70-year-old female comfortably resting in a chair, alert and oriented x3. Patient reports improvement of her nausea and vomiting from yesterday and reports it is currently controlled. Denies chest pain, shortness of breath, palpitations, hemoptysis, sputum production, fever, chills, N/V/D. Objective Data Objective Data Vital Signs: Vital Signs Temp Pulse Resp BP Pulse Ox 98.5 F 88 18 122/91 H 100 02/09/21 09:53 02/09/21 09:53 02/09/21 09:53 02/09/21 09:53 02/09/21 09:53 Oxygen Flow Rate (L/min) 2 Oxygen Delivery Method Nasal Cannula Weight: 171 lb 8.314 oz Body Mass Index (BMI) 28.5 Intake & Output: Intake and Output for Last 24 Hours 02/07/21 02/08/21 02/09/21 23:59 23:59 23:59 Intake Total 860 / 1100 1110 / 1110 240 / 240 Output Total 450 / 850 1000 / 1000 Balance 410 / 250 110 / 110 240 / 240 Medical Nutrition Assessment Dietitian: Malnutrition Criteria Met Start: 02/02/21 16:55 Freq: Status: Active Protocol: Document 02/06/21 11:03 (Rec: 02/06/21 11:04 [id number]) Nutrition Malnutrition Evidence of Malnutrition Exists Yes Malnutrition (severe): Chronic Evidenced By Suboptimal Energy Intake ( Severe),Weight Loss (Severe) Clinical Problem Chronic Disease or Condition Related Malnutrition Etiology Severe protein/calorie malnutrition in the context of chronic disease/debility related to weakness/nausea and inability to consume adequate energy/nutrition Signs/Symptoms as evidenced by 9% wt loss x past 2 months, 19% wt loss x past 4 months, PO meeting less than 50% estimated nutrition needs x past 4-6 months per pt report and taking less than 50% meals since admit. Status Active Problem Recommendation Dietitian Recommendations/Changes Will continue liberalized regular diet (consistency/ texture per SERVICE UNIT OPERATOR OIL WELL) as ordered and encourage intake at meals. Will continue 120ml ensure enlive 4 times per day and magic cup BID w/ lunch and dinner. Lab / Micro Data Result Diagrams: 02/09/21 05:54 02/08/21 06:24 Labs: Laboratory Results - last 24 hr 02/09/21 05:54: WBC 8.0, RBC 3.90 L, Hgb 11.7 L, Hct 35.8 L, MCV 91.8, MCH 30.0, MCHC 32.7, RDW Std Deviation 48.0 H, RDW Coeff of Jordin 14.4, Plt Count 314, MPV 9 .5, Immature Gran % (Auto) 1.000 H, Neut % (Auto) 56.5, Lymph % (Auto) 29.8, [place] % (Auto) 9.5, Eos % (Auto) 2.8, Baso % (Auto) 0.4, Absolute Neuts (auto) 4.5, Absolute Lymphs (auto) 2.38, Nucleated RBC % 0 Micro: Microbiology 02/08/21 06:00 Gastric Fluid/Contents Gastric Occult Blood - Final Physical Exam Const alert, oriented x3 and no apparent distress HEENT head/scalp atraumatic and moist oral mucous membranes Head and Scalp: normocephalic Eyes PERRL, EOMs intact bilaterally and conjunctivae normal Neck no lymphadenopathy, supple and no JVD Resp normal respiratory effort, no retractions, no use of accessory muscles and clear to auscultation bilaterally Cardio regular rate, regular rhythm, no murmurs and no JVD GI normal to inspection, nondistended, normoactive bowel sounds, soft to palpation and non-tender Extremity normal to inspection, full ROM and no clubbing, cyanosis or edema Skin no rashes or lesions noted, no wounds, skin turgor normal and no jaundice Neuro CN's II-XII intact bilaterally Psych affect normal Assessment & Plan Assessment/Plan (1) Left arm weakness: PLAN: Day 8 Discharge planning: Awaiting SNF pre-CERT to [facility]. 1) left-sided weakness CVA ruled out. Brain CT with chronic changes. MRI of brain without acute infarct. MRA of head with no significant stenosis or aneurysm. MRA of neck without obvious acute thrombosis. Disposition as above. 2) seizure history Continue oxcarbazepine, benztropine and phenobarbital. 3) COPD Not in acute exacerbation, continue home medication regimen. 4) CHUY Continue CPAP nightly. 5) hypothyroidism Continue Synthroid 6) depression/anxiety Continue Remeron, 7) degenerative disc disease Continue methadone. 8) stress bladder incontinence Continue mirabegron. 9) tobacco dependence Cessation encouraged, nicotine patch ordered. 10) Nausea and vomiting Patient developed an episode of N/V overnight, some coffee ground emesis although hemoglobin is stable and vital signs do not demonstrate any evidence of hemodynamic compromise. Patient does have a history of acute gastritis. Plan; continue Zofran, prochlorperazine initiated, continue IV Protonix. DVT prophylaxis- Lovenox Patient seen by Rolando Palencia PA-C, under the supervision of Dr. Greene. Documented by User: Dr. Silva Greene MD 02/09/21 15:33 Objective Data Lab / Micro Data Result Diagrams: 02/09/21 05:54 02/08/21 06:24 Charges/Coding Addendum Addendum: Patient seen by Rolando Palencia PA-C under my supervision Patient seen and examined. She feels well and has no complaints. Her nausea and vomiting have improved. Review of sounds otherwise negative. She is awaiting placement. She has remained hemodynamically stable. O/E: Const alert, oriented x3 and no apparent distress HEENT head/scalp atraumatic and moist oral mucous membranes Head and Scalp: normocephalic Eyes PERRL, EOMs intact bilaterally and conjunctivae normal Neck no lymphadenopathy, supple and no JVD Resp normal respiratory effort, no retractions, no use of accessory muscles and clear to auscultation bilaterally Cardio regular rate, regular rhythm, no murmurs and no JVD GI normal to inspection, nondistended, normoactive bowel sounds, soft to palpation and non-tender Extremity normal to inspection, full ROM and no clubbing, cyanosis or edema Skin no rashes or lesions noted, no wounds, skin turgor normal and no jaundice Neuro CN's II-XII intact bilaterally Psych affect normal Patient has been managed for left-sided weakness and stroke has been ruled out. MRI of the brain was negative and MRI also did not show any significant stenosis. She is currently awaiting placement. Continue seizure medications, namely oxcarbazepine, phenobarbital and benztropine. On methadone for pain management for degenerative disc disease. On Lovenox for DVT prophylaxis. Currently awaiting placement. Rest as per Gloria Cruz which I reviewed and endorsed. Visit Charges OBSV E&M: 76161 Subsequent observation care L2
--- NOTE | 2021-02-09 11:40 | CASEMGMT ---
GRAHAM called [facility] and left a voice mail requesting a return call with an update. Michela Rosas DIRECT MARKETING REPRESENTATIVE EMMA
--- NOTE | 2021-02-09 11:50 | CASEMGMT ---
GRAHAM received a call from Stefano with [facility]. He said that information is being sent to the State today so GRAHAM should have an answer today. GRAHAM then called [facility] and spoke with Kely. Patient's pre-cert is still good. They are aware she could come today. Michela Rosas MSW EMMA
--- NOTE | 2021-02-09 12:39 | CASEMGMT ---
GRAHAM received a call from Kristel Lynn with [facility]. She asked if patient has a Developmental Disability. SW told her she does not. She said they way the questions were answered on the PASS patient trips the screen for DD. She will now also have to be cleared by Board of DD. GRAHAM told her patient tripped the mental health screen last time, but not the DD screen. SW told her everything is exactly the same and she did not trip the DD screen before. She said it must have been over looked. She said it could take another week. GRAHAM reviewed PAS[facility] and GRAHAM does not believe patient trips the DD screen as SW did not answer yes to questions 2,3,4, and 5 only 2,3, and 4. Therefore she does not trip the DD screen. GRAHAM then called [facility] and left a message regarding this issue. GRAHAM did receive a call right away from Stefano with [facility] and he agrees patient does not trip the DD screen. He said he sent a message to their management and if for some reason they try to say she is dual he will have management reach out and correct it. GRAHAM should have an answer today. Michela Rosas PRESSROOM SUPERVISOR EMMA
[2021-02-09] MEDS: Aspirin E.C. 81 MG Tablet PO (13:02)
[2021-02-09] MEDS: Ferrous Sulfate 325 MG Tablet PO (13:03)
[2021-02-09] MEDS: Psyllium 1 PACKET PO (13:06)
[2021-02-09] MEDS: Bisacodyl 10 MG Suppository RC (13:22)
--- NOTE | 2021-02-09 14:26 | CASEMGMT ---
GRAHAM received a call from Stefano with [facility]. He said that information was sent to DD so we do have to wait on them to respond whether or not they wish to review patient. GRAHAM asked why this is the case as she technically did not trip the screen for DD. He said he is not sure why. They are hoping DD will get back with them today. Michela Rosas TRAVEL ATTENDANTS EMMA
[2021-02-09] MEDS: proCHLORPERazine 5 MG Tablet PO (14:56)
[2021-02-09] MEDS: Atorvastatin Calcium 40 MG Tablet PO (21:12)
[2021-02-09] MEDS: Pramipexole Di-HCl 1 MG Tablet PO (21:12)
[2021-02-09] MEDS: Mirtazapine 15 MG Tablet 7.5 MG PO (21:13)
--- NOTE | 2021-02-09 21:48 | NURSING ---
pt requesting all 4 bed rails be up for positioning needs.
[2021-02-10] VITALS (8 sets, daily range): BP systolic 115–123; BP diastolic 65–87; PULSE 60–93; RESP 14–16; TEMP 36.3–37; O2SAT 94–96
[2021-02-10] MEDS: Acetaminophen 500 MG Tablet 1000 MG PO ×2 (05:28→14:18)
[2021-02-10] MEDS: Levothyroxine 50 MCG Tablet PO (05:28)
[2021-02-10] MEDS: Methadone 10 MG Tablet PO ×2 (05:29→14:18)
[2021-02-10 07:31] LABS: Anion Gap 5 (5-15); BUN 14 mg/dL (7-18); BUN/Creat Ratio 39.5 RATIO (10-20); Calcium,Total 8.5 mg/dL (8.5-10.1); Chloride 100 mmol/L (98-107); Creatinine, Serum 0.35 mg/dL (0.55-1.02); EST Glomerular Filtration Rate 192 mL/min (>60); Est Glom Filt Rate - Afr Amer 233 mL/min (>60); Estimated Creatinine Clearance 46.43 ml/min; Glucose 119 mg/dL (74-106); Potassium 4.3 mmol/L (3.5-5.1); Sodium Level 134 mmol/L (136-145)
[2021-02-10] MEDS: Polyethylene Glycol 3350 17 GM PACKET PO (09:15)
[2021-02-10] MEDS: Benztropine 2 MG Tablet PO (09:16)
[2021-02-10] MEDS: Phenobarbital 32.4 MG Tablet PO (09:16)
[2021-02-10] MEDS: OXcarbazepine 600 MG Tablet PO (09:16)
[2021-02-10] MEDS: Potassium Chloride Oral Tablet 20 MEQ PO (09:17)
[2021-02-10] MEDS: Docusate Sodium 100 MG Capsule PO (09:17)
[2021-02-10] MEDS: Pantoprazole Sodium 40 MG Tablet PO (09:17)
[2021-02-10] MEDS: Senna/Docusate Sodium 1 Tablet 2 TABLET PO (09:18)
[2021-02-10] MEDS: Calcium (Elemental) 500 MG Tablet PO ×2 (09:18→11:30)
[2021-02-10] MEDS: Mirabegron 25 MG TAB.ER.24H PO (09:18)
[2021-02-10] MEDS: BRIMONIDINE 0.15% 5 ML Bottle 1 DRP OPHTHALMIC (09:19)
[2021-02-10] MEDS: Lidocaine 5% Patch 2 PATCH TOPICAL (09:19)
--- NOTE | 2021-02-10 09:53 | CASEMGMT ---
GRAHAM called [facility] and left a voice mail inquiring if there are any updates. Michela Rosas CORE PLACER EMMA
[2021-02-10] MEDS: Ondansetron 4 MG/2 ML Vial IV (09:58)
[2021-02-10] MEDS: 0.9% Saline Lock 10 ML Syringe IV (09:58)
--- NOTE | 2021-02-10 11:15 | CASEMGMT ---
GRAHAM received a call from Stefano at [facility] and patient has been approved. He also faxed the approval. GRAHAM called [facility] and notified Froylan that patient will be coming today. GRAHAM also faxed the approval from [facility]. Michela CARTER
--- NOTE | 2021-02-10 11:17 | TREXTCAR_ITS ---
Documented by User: Rolando MARTINEZ 02/10/21 11:25 Diet 02/01/21 16:28 Diet: Regular - General Food consistency:: Soft & Bite Sized Liquid Consistency:: Regular/Thin Type of Dietary Supplement:: Magic Cup Dessert Diet Comments: Direct sup., assist feeding as needed; magic cup BID w/ lunch and dinner Routine Orders/Code Status O2 Frequency: Continuous Keep PO Greater than or Equal to (%): 94 Routine Lab Work: CBC (within 3 days) and BMP (within 3 days) Code Status: DNRCC-A Therapies Weight Bearing: Weight bearing as tolerated Physical Therapy: Eval and Treat Occupational Therapy: Eval and Treat Problem/Diagnosis (1) Left arm weakness: Status: Acute Allergies/Procedures Done in Hospital Allergies codeine Allergy (Mild, Verified 01/31/21 11:04) HIVES Penicillins Allergy (Verified 01/31/21 11:04) Anaphylaxis Procedures: 2-D Echocardiogram Type of Care/Length of Stay Estimated LOS: Convalescent Care Less Than 30 days Type of Care Needed: Skilled Rehab Potential: Good Prognosis: Good Additional Orders/Day of Discharge Day of Discharge: 02/06/21 Dietary and Speech Recommendations Dietitian Recommendations/Changes: Will continue liberalized regular diet (consistency/texture per [employer]) as ordered and encourage intake at meals. Will continue 120ml ensure enlive 4 times per day and magic cup BID w/ lunch and dinner. Speech Linguistic Eval Summary: Orientation: Pt fully oriented with exception of her age. Pt self-corrected her age when prompted by [employer] after answering incorre ctly 2X. Auditory Comprehension: Pt followed commands with 100% accuracy for oral [facility] exam. She answered questions appropriately throughout session. Verbal Expression: Pt participated in complex conversation, reporting personal history with fluent speech and no concerns for difficulty with word retrieval. Speech clarity appeared to be WNL. Memory: Pt was able to recall participation in MRI on this date. She recalled the symptoms that brought her to the hospital; however, she reported concerns for poor memory of events of previous date. She immediately recalled 3 words with 3/3 acc. With 5 minute delay, she recalled words again with 3/3 acc. The patient appears to have resolving confusion at this time. Will follow 1-2X to ensure resolving concerns for difficulty with memory and orientation as patient lives home alone. Discharge Plan Admission Admit Date/Time: 02/01/21 15:35 Primary Reason for Your Visit: Debility Attending Provider: Silva Greene Primary Care Provider: Patel Veliz Chi Instructions Patient Instructions: ED Chest Pain, Noncardiac Discharge Orders/Prescriptions Prescriptions: Continued Myrbetriq 25 mg tablet extended release 24 hr 25 mg PO BID RF: 0 omeprazole 20 mg capsule,delayed release(DR/EC) 20 mg PO DAILY RF: 0 sennosides-docusate sodium [Senexon-S] 8.6-50 mg tablet 2 tab PO BID RF: 0 calcium carbonate [Oyster Shell Calcium] 500 mg calcium (1,250 mg) tablet 500 mg PO BID RF: 0 fluticasone furoate-vilanterol 100-25 mcg/dose blister with device 2 puff INHALATION DAILY RF: 0 albuterol sulfate [Ventolin HFA] 90 mcg/actuation HFA aerosol inhaler 1 inh INHALATION BID PRN PRN (Reason: COPD) RF: 0 brimonidine 0.15 % drops 1 drp OPHTHALMIC BID RF: 0 benztropine 2 mg tablet 2 mg PO BID Qty: 60 RF: 3 oxcarbazepine 600 mg tablet 600 mg PO BID Qty: 60 RF: 3 phenobarbital 32.4 mg tablet 32.4 mg PO BID Qty: 60 RF: 3 potassium chloride 20 MEQ tablet 20 meq PO BID RF: 0 levothyroxine 50 MCG tablet 50 mcg PO DAILY RF: 0 duloxetine 20 MG capsule,delayed release(DR/EC) 20 mg PO DAILY RF: 0 mirtazapine 7.5 mg tablet 7.5 mg PO QHS RF: 0 ropinirole 2 MG tablet 2 mg PO QHS RF: 0 acetaminophen 325 MG tablet 650 mg PO Q6H PRN PRN (Reason: Pain Score 1-10/Temp > 100.7 F) RF: 0 multivitamin Tablet 1 tab PO 1200 RF: 0 cholecalciferol (vitamin D3) 1,250 mcg (50,000 unit) capsule 1,250 mcg PO WE RF: 0 methadone 10 mg tablet 10 mg PO TID 5 Days Qty: 15 RF: 0 ferrous sulfate [FeroSul] 325 mg (65 mg iron) Tablet 325 mg PO 1200,1700 Qty: 60 RF: 1 ondansetron 4 mg Tablet,Disintegrating 4 mg PO Q6H PRN (Reason: Nausea) RF: 0 loperamide [Imodium A-D] 2 mg Tablet 2 mg PO Q6H PRN (Reason: Diarrhea) RF: 0 mineral oil Enema 118 ml OK DAILY PRN (Reason: Constipation) RF: 0 bisacodyl 10 mg Suppository 10 mg OK DAILY PRN (Reason: Constipation) RF: 0 atorvastatin 40 mg Tablet 40 mg PO QHS Qty: 30 RF: 0 polyethylene glycol 3350 17 gram Powder In Packet 17 g PO DAILY Qty: 0 RF: 0 nitroglycerin 0.4 mg Tablet, Sublingual 0.4 mg sublingual Q5M PRN (Reason: CHEST PAIN) Qty: 30 RF: 0 Metamucil Fiber Singles 3.4 gram Powder In Packet 1 packet PO TID Qty: 0 RF: 0 aspirin 81 MG tablet,delayed release (DR/EC) 81 mg PO 1200 Qty: 30 RF: 0 temazepam 30 mg Capsule 30 mg PO QHS PRN (Reason: Sleep) Qty: 0 RF: 0 nicotine 21 mg/24 hr patch 24 hour 1 patch TOPICAL DAILY Qty: 30 RF: 0 midodrine 10 mg tablet 10 mg PO TID Qty: 90 RF: 0 magnesium hydroxide [Milk of Magnesia] 400 mg/5 mL suspension 5 ml PO DAILY PRN (Reason: constipation) Qty: 150 RF: 0 docusate sodium [Colace] 100 mg capsule 100 mg PO DAILY Qty: 10 RF: 0 hydrocortisone [Procto-Med HC] 2.5 % cream with perineal applicator 1 applic OK DAILY PRN (Reason: hemorrhoids) Qty: 30 RF: 0 Referrals / Follow Up: Patel Veliz Chi, MD [Primary Care Provider] - Within 2 Weeks Disposition Disposition (needs filled in before D/C Order can be placed): [facility] Facility Documented by User: Dr. Silva Greene MD 02/10/21 17:03 Allergies/Procedures Done in Hospital Allergies codeine Allergy (Mild, Verified 01/31/21 11:04) HIVES Penicillins Allergy (Verified 01/31/21 11:04) Anaphylaxis Discharge Plan Admission Admit Date/Time: 02/01/21 15:35 Primary Reason for Your Visit: Debility Attending Provider: Silva Greene Primary Care Provider: Patel Veliz Chi Instructions Patient Instructions: ED Chest Pain, Noncardiac Discharge Orders/Prescriptions Prescriptions: Continued Myrbetriq 25 mg tablet extended release 24 hr 25 mg PO BID RF: 0 omeprazole 20 mg capsule,delayed release(DR/EC) 20 mg PO DAILY RF: 0 sennosides-docusate sodium [Senexon-S] 8.6-50 mg tablet 2 tab PO BID RF: 0 calcium carbonate [Oyster Shell Calcium] 500 mg calcium (1,250 mg) tablet 500 mg PO BID RF: 0 fluticasone furoate-vilanterol 100-25 mcg/dose blister with device 2 puff INHALATION DAILY RF: 0 albuterol sulfate [Ventolin HFA] 90 mcg/actuation HFA aerosol inhaler 1 inh INHALATION BID PRN PRN (Reason: COPD) RF: 0 brimonidine 0.15 % drops 1 drp OPHTHALMIC BID RF: 0 benztropine 2 mg tablet 2 mg PO BID Qty: 60 RF: 3 oxcarbazepine 600 mg tablet 600 mg PO BID Qty: 60 RF: 3 phenobarbital 32.4 mg tablet 32.4 mg PO BID Qty: 60 RF: 3 potassium chloride 20 MEQ tablet 20 meq PO BID RF: 0 levothyroxine 50 MCG tablet 50 mcg PO DAILY RF: 0 duloxetine 20 MG capsule,delayed release(DR/EC) 20 mg PO DAILY RF: 0 mirtazapine 7.5 mg tablet 7.5 mg PO QHS RF: 0 ropinirole 2 MG tablet 2 mg PO QHS RF: 0 acetaminophen 325 MG tablet 650 mg PO Q6H PRN PRN (Reason: Pain Score 1-10/Temp > 100.7 F) RF: 0 multivitamin Tablet 1 tab PO 1200 RF: 0 cholecalciferol (vitamin D3) 1,250 mcg (50,000 unit) capsule 1,250 mcg PO WE RF: 0 methadone 10 mg tablet 10 mg PO TID 5 Days Qty: 15 RF: 0 ferrous sulfate [FeroSul] 325 mg (65 mg iron) Tablet 325 mg PO 1200,1700 Qty: 60 RF: 1 ondansetron 4 mg Tablet,Disintegrating 4 mg PO Q6H PRN (Reason: Nausea) RF: 0 loperamide [Imodium A-D] 2 mg Tablet 2 mg PO Q6H PRN (Reason: Diarrhea) RF: 0 mineral oil Enema 118 ml OK DAILY PRN (Reason: Constipation) RF: 0 bisacodyl 10 mg Suppository 10 mg OK DAILY PRN (Reason: Constipation) RF: 0 atorvastatin 40 mg Tablet 40 mg PO QHS Qty: 30 RF: 0 polyethylene glycol 3350 17 gram Powder In Packet 17 g PO DAILY Qty: 0 RF: 0 nitroglycerin 0.4 mg Tablet, Sublingual 0.4 mg sublingual Q5M PRN (Reason: CHEST PAIN) Qty: 30 RF: 0 Metamucil Fiber Singles 3.4 gram Powder In Packet 1 packet PO TID Qty: 0 RF: 0 aspirin 81 MG tablet,delayed release (DR/EC) 81 mg PO 1200 Qty: 30 RF: 0 temazepam 30 mg Capsule 30 mg PO QHS PRN (Reason: Sleep) Qty: 0 RF: 0 nicotine 21 mg/24 hr patch 24 hour 1 patch TOPICAL DAILY Qty: 30 RF: 0 midodrine 10 mg tablet 10 mg PO TID Qty: 90 RF: 0 magnesium hydroxide [Milk of Magnesia] 400 mg/5 mL suspension 5 ml PO DAILY PRN (Reason: constipation) Qty: 150 RF: 0 docusate sodium [Colace] 100 mg capsule 100 mg PO DAILY Qty: 10 RF: 0 hydrocortisone [Procto-Med HC] 2.5 % cream with perineal applicator 1 applic OK DAILY PRN (Reason: hemorrhoids) Qty: 30 RF: 0 Referrals / Follow Up: Patel Veliz Chi, MD [Primary Care Provider] - Within 2 Weeks Disposition Disposition (needs filled in before D/C Order can be placed): [facility] Facility
[2021-02-10] MEDS: Ferrous Sulfate 325 MG Tablet PO ×2 (11:30→16:31)
[2021-02-10] MEDS: Aspirin E.C. 81 MG Tablet PO (11:30)
--- NOTE | 2021-02-10 12:01 | PCM.DC.SUM ---
Documented by User: Rolando MARTINEZ 02/10/21 12:11 Providers Date of Admission: 02/01/21 Primary Care Physician: Dr. Patel Veliz MD Reason For Visit: LEFT SIDED WEAKNESS Diagnosis Discharge Diagnosis (1) Left arm weakness: Status: Acute Code(s): R29.898 - Other symptoms and signs involving the musculoskeletal system Medications at Discharge Home Medications duloxetine 20 mg PO DAILY 01/07/19 levothyroxine 50 mcg PO DAILY 01/07/19 potassium chloride 20 meq PO BID 01/07/19 mirtazapine 7.5 mg tablet 7.5 mg PO QHS tablet 02/21/19 ropinirole 2 mg PO QHS 08/08/19 acetaminophen 650 mg PO Q6H PRN PRN tablet 08/11/19 albuterol sulfate 90 mcg/actuation aerosol inhaler 1 inh INHALATION BID PRN PRN 05/13/20 calcium carbonate 500 mg calcium (1,250 mg) tablet 500 mg PO BID 05/13/20 fluticasone furoate 100 mcg-vilanterol 25 mcg/dose inhalation powder 2 puff INHALATION DAILY 05/13/20 mirabegron 25 mg tablet,extended release 24 hr 25 mg PO BID tab 05/13/20 omeprazole 20 mg capsule,delayed release 20 mg PO DAILY cap 05/13/20 sennosides 8.6 mg-docusate sodium 50 mg tablet 2 tab PO BID 05/13/20 brimonidine 0.15 % eye drops 1 drp OPHTHALMIC BID 07/09/20 benztropine 2 mg tablet 2 mg PO BID #60 tab 10/13/20 oxcarbazepine 600 mg tablet 600 mg PO BID #60 tab 10/13/20 phenobarbital 32.4 mg tablet 32.4 mg PO BID #60 tab 10/13/20 cholecalciferol (vitamin D3) 1,250 mcg PO WE 10/20/20 multivitamin 1 tab PO 1200 10/20/20 methadone 10 mg PO TID 5 Days #15 tab 10/25/20 ferrous sulfate [FeroSul] 325 mg PO 1200,1700 #60 tab 12/03/20 ondansetron 4 mg PO Q6H PRN 01/10/[address] DAILY PRN 01/16/21 loperamide [Imodium A-D] 2 mg PO Q6H PRN 01/16/[address] DAILY PRN 01/16/21 Metamucil Fiber Singles 1 packet PO TID #0 ea 01/21/21 aspirin 81 mg PO 1200 #30 tab 01/21/21 atorvastatin 40 mg PO QHS #30 tab 01/21/21 magnesium hydroxide [Milk of Magnesia] 5 ml PO DAILY PRN #150 ml 01/21/21 midodrine 10 mg PO TID #90 tab 01/21/21 nicotine 1 patch TOPICAL DAILY #30 ea 01/21/21 nitroglycerin 0.4 mg SUBLINGUAL Q5M PRN #30 tab 01/21/21 polyethylene glycol 3350 17 g PO DAILY #0 ea 01/21/21 temazepam 30 mg PO QHS PRN #0 cap 01/21/21 docusate sodium [Colace] 100 mg PO DAILY #10 cap 01/31/21 hydrocortisone [Procto-Med HC] [address] DAILY PRN #30 g 01/31/21 Hospital Course Summary of Care Provided Minutes Spent on Discharge: 35 Hospital Course: Disposition: Patient will be discharged to [facility] for additional correction care. 1) left-sided weakness CVA ruled out. Brain CT with chronic changes. MRI of brain without acute infarct. MRA of head with no significant stenosis or aneurysm. MRA of neck without obvious acute thrombosis. Disposition as above. 2) seizure history Continue oxcarbazepine, benztropine and phenobarbital. 3) COPD Not in acute exacerbation, continue home medication regimen. 4) CHUY Continue CPAP nightly. 5) hypothyroidism Continue Synthroid 6) depression/anxiety Continue Remeron, 7) degenerative disc disease Continue methadone. 8) stress bladder incontinence Continue mirabegron. 9) tobacco dependence Cessation encouraged. 10) Nausea and vomiting Resolved. Patient seen by Rolando Palencia PA-C, under the supervision of Dr. Greene. Physical Exam Narrative Patient is a 70-year-old female comfortably resting in bed, alert and orient x3. Patient denies any change or progression of symptoms. Denies chest pain, shortness of breath, palpitations, hemoptysis, sputum production, fever, chills, N/V/D. Const alert, oriented x3 and no apparent distress HEENT normocephalic, head/scalp atraumatic and hearing grossly normal bilaterally Eyes EOMs intact bilaterally and conjunctivae normal Neck no lymphadenopathy, supple and no JVD Resp normal respiratory effort, no retractions, no use of accessory muscles and clear to auscultation bilaterally Cardio regular rate, regular rhythm, no murmurs and no JVD GI normal to inspection, nondistended, normoactive bowel sounds, soft to palpation and non-tender Extremity normal to inspection, full ROM and no clubbing, cyanosis or edema Skin no rashes or lesions noted, no wounds and skin turgor normal Neuro CN's II-XII intact bilaterally Psych affect normal Medical Records Data Medical Nutrition Assessment Dietitian: Malnutrition Criteria Met Start: 02/02/21 16:55 Freq: Status: Active Protocol: Document 02/06/21 11:03 (Rec: 02/06/21 11:04 [id number]) Nutrition Malnutrition Evidence of Malnutrition Exists Yes Malnutrition (severe): Chronic Evidenced By Suboptimal Energy Intake ( Severe),Weight Loss (Severe) Clinical Problem Chronic Disease or Condition Related Malnutrition Etiology Severe protein/calorie malnutrition in the context of chronic disease/debility related to weakness/nausea and inability to consume adequate energy/nutrition Signs/Symptoms as evidenced by 9% wt loss x past 2 months, 19% wt loss x past 4 months, PO meeting less than 50% estimated nutrition needs x past 4-6 months per pt report and taking less than 50% meals since admit. Status Active Problem Recommendation Dietitian Recommendations/Changes Will continue liberalized regular diet (consistency/ texture per FICTION AND NONFICTION AUTHOR) as ordered and encourage intake at meals. Will continue 120ml ensure enlive 4 times per day and magic cup BID w/ lunch and dinner. Weight / BMI Weight Weight: 171 lb 8.314 oz Body Mass Index (BMI) 28.5 ABG / Lab / Microbiology Data Result Diagrams: 02/09/21 05:54 02/10/21 05:55 Laboratory: Laboratory Results - last 24 hr 02/10/21 05:55: Sodium 134 L, Potassium 4.3, Chloride 100, Carbon Dioxide 29.0, Anion Gap 5, BUN 14, Creatinine 0.35 L, Estim Creat Clear Calc 46.43, Est GFR (MDRD) Af Amer 233, Est GFR (MDRD) Non-Af 192, BUN/Creatinine Ratio 39.5 H, Glucose 119 H, Calcium 8.5 Microbiology: Microbiology 02/08/21 06:00 Gastric Fluid/Contents Gastric Occult Blood - Final Meaningful Use Info Meaningful Use Diagnoses (Choose all that apply): None applicable Discharge Plan Admission Admit Date/Time: 02/01/21 15:35 Primary Reason for Your Visit: Debility Attending Provider: Silva Greene Primary Care Provider: Patel Veliz Chi Instructions Patient Instructions: ED Chest Pain, Noncardiac Discharge Orders/Prescriptions Prescriptions: Continued Myrbetriq 25 mg tablet extended release 24 hr 25 mg PO BID RF: 0 omeprazole 20 mg capsule,delayed release(DR/EC) 20 mg PO DAILY RF: 0 sennosides-docusate sodium [Senexon-S] 8.6-50 mg tablet 2 tab PO BID RF: 0 calcium carbonate [Oyster Shell Calcium] 500 mg calcium (1,250 mg) tablet 500 mg PO BID RF: 0 fluticasone furoate-vilanterol 100-25 mcg/dose blister with device 2 puff INHALATION DAILY RF: 0 albuterol sulfate [Ventolin HFA] 90 mcg/actuation HFA aerosol inhaler 1 inh INHALATION BID PRN PRN (Reason: COPD) RF: 0 brimonidine 0.15 % drops 1 drp OPHTHALMIC BID RF: 0 benztropine 2 mg tablet 2 mg PO BID Qty: 60 RF: 3 oxcarbazepine 600 mg tablet 600 mg PO BID Qty: 60 RF: 3 phenobarbital 32.4 mg tablet 32.4 mg PO BID Qty: 60 RF: 3 potassium chloride 20 MEQ tablet 20 meq PO BID RF: 0 levothyroxine 50 MCG tablet 50 mcg PO DAILY RF: 0 duloxetine 20 MG capsule,delayed release(DR/EC) 20 mg PO DAILY RF: 0 mirtazapine 7.5 mg tablet 7.5 mg PO QHS RF: 0 ropinirole 2 MG tablet 2 mg PO QHS RF: 0 acetaminophen 325 MG tablet 650 mg PO Q6H PRN PRN (Reason: Pain Score 1-10/Temp > 100.7 F) RF: 0 multivitamin Tablet 1 tab PO 1200 RF: 0 cholecalciferol (vitamin D3) 1,250 mcg (50,000 unit) capsule 1,250 mcg PO WE RF: 0 methadone 10 mg tablet 10 mg PO TID 5 Days Qty: 15 RF: 0 ferrous sulfate [FeroSul] 325 mg (65 mg iron) Tablet 325 mg PO 1200,1700 Qty: 60 RF: 1 ondansetron 4 mg Tablet,Disintegrating 4 mg PO Q6H PRN (Reason: Nausea) RF: 0 loperamide [Imodium A-D] 2 mg Tablet 2 mg PO Q6H PRN (Reason: Diarrhea) RF: 0 mineral oil Enema [address] DAILY PRN (Reason: Constipation) RF: 0 bisacodyl 10 mg Suppository [address] DAILY PRN (Reason: Constipation) RF: 0 atorvastatin 40 mg Tablet 40 mg PO QHS Qty: 30 RF: 0 polyethylene glycol 3350 17 gram Powder In Packet 17 g PO DAILY Qty: 0 RF: 0 nitroglycerin 0.4 mg Tablet, Sublingual 0.4 mg sublingual Q5M PRN (Reason: CHEST PAIN) Qty: 30 RF: 0 Metamucil Fiber Singles 3.4 gram Powder In Packet 1 packet PO TID Qty: 0 RF: 0 aspirin 81 MG tablet,delayed release (DR/EC) 81 mg PO 1200 Qty: 30 RF: 0 temazepam 30 mg Capsule 30 mg PO QHS PRN (Reason: Sleep) Qty: 0 RF: 0 nicotine 21 mg/24 hr patch 24 hour 1 patch TOPICAL DAILY Qty: 30 RF: 0 midodrine 10 mg tablet 10 mg PO TID Qty: 90 RF: 0 magnesium hydroxide [Milk of Magnesia] 400 mg/5 mL suspension 5 ml PO DAILY PRN (Reason: constipation) Qty: 150 RF: 0 docusate sodium [Colace] 100 mg capsule 100 mg PO DAILY Qty: 10 RF: 0 hydrocortisone [Procto-Med HC] 2.5 % cream with perineal applicator [address] DAILY PRN (Reason: hemorrhoids) Qty: 30 RF: 0 Referrals / Follow Up: Patel Veliz Chi, MD [Primary Care Provider] - Within 2 Weeks Disposition Disposition (needs filled in before D/C Order can be placed): Half-Way Facility Documented by User: Dr. Silva Greene MD 02/10/21 17:20 Providers Date of Admission: 02/01/21 Reason For Visit: LEFT SIDED WEAKNESS Medications at Discharge Home Medications duloxetine 20 mg PO DAILY 01/07/19 levothyroxine 50 mcg PO DAILY 01/07/19 potassium chloride 20 meq PO BID 01/07/19 mirtazapine 7.5 mg tablet 7.5 mg PO QHS tablet 02/21/19 ropinirole 2 mg PO QHS 08/08/19 acetaminophen 650 mg PO Q6H PRN PRN tablet 08/11/19 albuterol sulfate 90 mcg/actuation aerosol inhaler 1 inh INHALATION BID PRN PRN 05/13/20 calcium carbonate 500 mg calcium (1,250 mg) tablet 500 mg PO BID 05/13/20 fluticasone furoate 100 mcg-vilanterol 25 mcg/dose inhalation powder 2 puff INHALATION DAILY 05/13/20 mirabegron 25 mg tablet,extended release 24 hr 25 mg PO BID tab 05/13/20 omeprazole 20 mg capsule,delayed release 20 mg PO DAILY cap 05/13/20 sennosides 8.6 mg-docusate sodium 50 mg tablet 2 tab PO BID 05/13/20 brimonidine 0.15 % eye drops 1 drp OPHTHALMIC BID 07/09/20 benztropine 2 mg tablet 2 mg PO BID #60 tab 10/13/20 oxcarbazepine 600 mg tablet 600 mg PO BID #60 tab 10/13/20 phenobarbital 32.4 mg tablet 32.4 mg PO BID #60 tab 10/13/20 cholecalciferol (vitamin D3) 1,250 mcg PO WE 10/20/20 multivitamin 1 tab PO 1200 10/20/20 methadone 10 mg PO TID 5 Days #15 tab 10/25/20 ferrous sulfate [FeroSul] 325 mg PO 1200,1700 #60 tab 12/03/20 ondansetron 4 mg PO Q6H PRN 01/10/[address] DAILY PRN 01/16/21 loperamide [Imodium A-D] 2 mg PO Q6H PRN 01/16/[address] DAILY PRN 01/16/21 Metamucil Fiber Singles 1 packet PO TID #0 ea 01/21/21 aspirin 81 mg PO 1200 #30 tab 01/21/21 atorvastatin 40 mg PO QHS #30 tab 01/21/21 magnesium hydroxide [Milk of Magnesia] 5 ml PO DAILY PRN #150 ml 01/21/21 midodrine 10 mg PO TID #90 tab 01/21/21 nicotine 1 patch TOPICAL DAILY #30 ea 01/21/21 nitroglycerin 0.4 mg SUBLINGUAL Q5M PRN #30 tab 01/21/21 polyethylene glycol 3350 17 g PO DAILY #0 ea 01/21/21 temazepam 30 mg PO QHS PRN #0 cap 01/21/21 docusate sodium [Colace] 100 mg PO DAILY #10 cap 01/31/21 hydrocortisone [Procto-Med HC] [address] DAILY PRN #30 g 01/31/21 ABG / Lab / Microbiology Data Result Diagrams: 02/09/21 05:54 02/10/21 05:55 Discharge Plan Admission Admit Date/Time: 02/01/21 15:35 Primary Reason for Your Visit: Debility Attending Provider: Silva Greene Primary Care Provider: Patel Veliz Chi Instructions Patient Instructions: ED Chest Pain, Noncardiac Discharge Orders/Prescriptions Prescriptions: Continued Myrbetriq 25 mg tablet extended release 24 hr 25 mg PO BID RF: 0 omeprazole 20 mg capsule,delayed release(DR/EC) 20 mg PO DAILY RF: 0 sennosides-docusate sodium [Senexon-S] 8.6-50 mg tablet 2 tab PO BID RF: 0 calcium carbonate [Oyster Shell Calcium] 500 mg calcium (1,250 mg) tablet 500 mg PO BID RF: 0 fluticasone furoate-vilanterol 100-25 mcg/dose blister with device 2 puff INHALATION DAILY RF: 0 albuterol sulfate [Ventolin HFA] 90 mcg/actuation HFA aerosol inhaler 1 inh INHALATION BID PRN PRN (Reason: COPD) RF: 0 brimonidine 0.15 % drops 1 drp OPHTHALMIC BID RF: 0 benztropine 2 mg tablet 2 mg PO BID Qty: 60 RF: 3 oxcarbazepine 600 mg tablet 600 mg PO BID Qty: 60 RF: 3 phenobarbital 32.4 mg tablet 32.4 mg PO BID Qty: 60 RF: 3 potassium chloride 20 MEQ tablet 20 meq PO BID RF: 0 levothyroxine 50 MCG tablet 50 mcg PO DAILY RF: 0 duloxetine 20 MG capsule,delayed release(DR/EC) 20 mg PO DAILY RF: 0 mirtazapine 7.5 mg tablet 7.5 mg PO QHS RF: 0 ropinirole 2 MG tablet 2 mg PO QHS RF: 0 acetaminophen 325 MG tablet 650 mg PO Q6H PRN PRN (Reason: Pain Score 1-10/Temp > 100.7 F) RF: 0 multivitamin Tablet 1 tab PO 1200 RF: 0 cholecalciferol (vitamin D3) 1,250 mcg (50,000 unit) capsule 1,250 mcg PO WE RF: 0 methadone 10 mg tablet 10 mg PO TID 5 Days Qty: 15 RF: 0 ferrous sulfate [FeroSul] 325 mg (65 mg iron) Tablet 325 mg PO 1200,1700 Qty: 60 RF: 1 ondansetron 4 mg Tablet,Disintegrating 4 mg PO Q6H PRN (Reason: Nausea) RF: 0 loperamide [Imodium A-D] 2 mg Tablet 2 mg PO Q6H PRN (Reason: Diarrhea) RF: 0 mineral oil Enema [address] DAILY PRN (Reason: Constipation) RF: 0 bisacodyl 10 mg Suppository [address] DAILY PRN (Reason: Constipation) RF: 0 atorvastatin 40 mg Tablet 40 mg PO QHS Qty: 30 RF: 0 polyethylene glycol 3350 17 gram Powder In Packet 17 g PO DAILY Qty: 0 RF: 0 nitroglycerin 0.4 mg Tablet, Sublingual 0.4 mg sublingual Q5M PRN (Reason: CHEST PAIN) Qty: 30 RF: 0 Metamucil Fiber Singles 3.4 gram Powder In Packet 1 packet PO TID Qty: 0 RF: 0 aspirin 81 MG tablet,delayed release (DR/EC) 81 mg PO 1200 Qty: 30 RF: 0 temazepam 30 mg Capsule 30 mg PO QHS PRN (Reason: Sleep) Qty: 0 RF: 0 nicotine 21 mg/24 hr patch 24 hour 1 patch TOPICAL DAILY Qty: 30 RF: 0 midodrine 10 mg tablet 10 mg PO TID Qty: 90 RF: 0 magnesium hydroxide [Milk of Magnesia] 400 mg/5 mL suspension 5 ml PO DAILY PRN (Reason: constipation) Qty: 150 RF: 0 docusate sodium [Colace] 100 mg capsule 100 mg PO DAILY Qty: 10 RF: 0 hydrocortisone [Procto-Med HC] 2.5 % cream with perineal applicator [address] DAILY PRN (Reason: hemorrhoids) Qty: 30 RF: 0 Referrals / Follow Up: Patel Veliz Chi, MD [Primary Care Provider] - Within 2 Weeks Disposition Disposition (needs filled in before D/C Order can be placed): Half-Way Facility Charges/Coding Addendum Addendum: Patient seen by Rolando Palencia PA-C under my supervision Patient is a 70-year-old female with extensive pathological history as outlined was admitted through the ED on 02/01/2021 with a myriad of complaints including left-sided weakness, fall and memory loss as well as rectal pain. She had been treated in the ED a day before this current admission for rectal pain and bleeding and was managed for hemorrhoids and discharged home. She was admitted and managed for left leg weakness with concerns for stroke. CT of the brain was negative and MRI of the brain was also negative for stroke. 2D echo showed EF of 55% with segmental dysfunction and preserved ejection fraction with no obvious intracardiac mass lesion or thrombus identified. She remained stable and was skilled for half-way. She obtained precertification on 02/10/2021 and was discharged to [facility]. She is follow-up with her primary care doctor in 1 to 2 weeks. Patient seen and examined prior to discharge. She had no complaints and review of systems otherwise negative. Labs and vitals reviewed. Medication reviewed and reconciled. O/E: Const alert, oriented x3 and no apparent distress HEENT head/scalp atraumatic and moist oral mucous membranes Head and Scalp: normocephalic Eyes PERRL, EOMs intact bilaterally and conjunctivae normal Neck no lymphadenopathy, supple and no JVD Resp normal respiratory effort, no retractions, no use of accessory muscles and clear to auscultation bilaterally Cardio regular rate, regular rhythm, no murmurs and no JVD GI normal to inspection, nondistended, normoactive bowel sounds, soft to palpation and non-tender Extremity normal to inspection, full ROM and no clubbing, cyanosis or edema Skin no rashes or lesions noted, no wounds, skin turgor normal and no jaundice Neuro CN's II-XII intact bilaterally Psych affect normal Plan is for discharge to SNF today. Rest as per Rolando Palencia PA-C's note, which I have reviewed and endorsed. Visit Charges Inpatient E&M: 04670 Disch Hosp
--- NOTE | 2021-02-10 12:42 | PHA.DC.MR ---
Pharmacy Service has performed discharge medication reconciliation for this patient. The patient's discharge medication list was reviewed for discrepancies and discrepancies were resolved. Home Medications duloxetine 20 mg PO DAILY 01/07/19 levothyroxine 50 mcg PO DAILY 01/07/19 potassium chloride 20 meq PO BID 01/07/19 mirtazapine 7.5 mg tablet 7.5 mg PO QHS tablet 02/21/19 ropinirole 2 mg PO QHS 08/08/19 acetaminophen 650 mg PO Q6H PRN PRN tablet 08/11/19 albuterol sulfate 90 mcg/actuation aerosol inhaler 1 inh INHALATION BID PRN PRN 05/13/20 calcium carbonate 500 mg calcium (1,250 mg) tablet 500 mg PO BID 05/13/20 fluticasone furoate 100 mcg-vilanterol 25 mcg/dose inhalation powder 2 puff INHALATION DAILY 05/13/20 mirabegron 25 mg tablet,extended release 24 hr 25 mg PO BID tab 05/13/20 omeprazole 20 mg capsule,delayed release 20 mg PO DAILY cap 05/13/20 sennosides 8.6 mg-docusate sodium 50 mg tablet 2 tab PO BID 05/13/20 brimonidine 0.15 % eye drops 1 drp OPHTHALMIC BID 07/09/20 benztropine 2 mg tablet 2 mg PO BID #60 tab 10/13/20 oxcarbazepine 600 mg tablet 600 mg PO BID #60 tab 10/13/20 phenobarbital 32.4 mg tablet 32.4 mg PO BID #60 tab 10/13/20 cholecalciferol (vitamin D3) 1,250 mcg PO WE 10/20/20 multivitamin 1 tab PO 1200 10/20/20 methadone 10 mg PO TID 5 Days #15 tab 10/25/20 ferrous sulfate [FeroSul] 325 mg PO 1200,1700 #60 tab 12/03/20 ondansetron 4 mg PO Q6H PRN 01/10/21 bisacodyl 10 mg OK DAILY PRN 01/16/21 loperamide [Imodium A-D] 2 mg PO Q6H PRN 01/16/21 mineral oil 118 ml [place] DAILY PRN 01/16/21 Metamucil Fiber Singles 1 packet PO TID #0 ea 01/21/21 aspirin 81 mg PO 1200 #30 tab 01/21/21 atorvastatin 40 mg PO QHS #30 tab 01/21/21 magnesium hydroxide [Milk of Magnesia] 5 ml PO DAILY PRN #150 ml 01/21/21 midodrine 10 mg PO TID #90 tab 01/21/21 nicotine 1 patch TOPICAL DAILY #30 ea 01/21/21 nitroglycerin 0.4 mg SUBLINGUAL Q5M PRN #30 tab 01/21/21 polyethylene glycol 3350 17 g PO DAILY #0 ea 01/21/21 temazepam 30 mg PO QHS PRN #0 cap 01/21/21 docusate sodium [Colace] 100 mg PO DAILY #10 cap 01/31/21 hydrocortisone [Procto-Med HC] 1 applic OK DAILY PRN #30 g 01/31/21
--- NOTE | 2021-02-10 13:19 | CASEMGMT ---
SW arranged for patient to get picked up at 430 via cot. SW called patient's son Yaakov and spoke with him letting him know that patient will be going to [facility] today at 430. He thanked GRAHAM for the update. SW faxed orders, negative COVID, and transport time to [facility]. SW called [facility] and notified the covering CM that patient is going to [facility] today. SW also faxed the d/c orders to [facility]. RN and workers compensation legal secretary notified of oyster picker time. SW went to notify patient, but she was sleeping. She has a lot of anxiety so SW did not want to wake her up. Plan: d/c to [facility] under skilled level of care on a PASRR as she is observation status. She did trip the screen, but the state has now approved her to go to SNF. [facility] transported via cot. Michela CARTER
[2021-02-10] MEDS: Psyllium 1 PACKET PO (14:18)
--- NOTE | 2021-02-10 14:45 | NURSING ---
Called report to Daniela REYES at [facility]
== END 2021-02-10 11:24 | disposition skilled nursing facility (03) ==
LOC: ED 10:16 → PCU 15:34
PROVIDERS: Nurse Practitioner Family; Physician Assistant; Admitting Provider Internal Medicine; Emergency Provider Emergency Medicine; PCP Family Medicine Geriatric Medicine; Visit Provider Student in an Organized Health Care Education/Training Program
DX: R53.1 Weakness (principal); G40.909 Epilepsy, unspecified, not intractable, without status epilepticus; J44.9 Chronic obstructive pulmonary disease, unspecified; K64.2 Third degree hemorrhoids; G25.81 Restless legs syndrome; I11.0 Hypertensive heart disease with heart failure; I50.9 Heart failure, unspecified; G47.33 Obstructive sleep apnea (adult) (pediatric); M51.36 Other intervertebral disc degeneration, lumbar region; J96.11 Chronic respiratory failure with hypoxia; K59.09 Other constipation; E03.9 Hypothyroidism, unspecified; F41.9 Anxiety disorder, unspecified; F32.9 Major depressive disorder, single episode, unspecified; N39.3 Stress incontinence (female) (male); Z79.899 Other long term (current) drug therapy; Z79.82 Long term (current) use of aspirin; Z87.891 Personal history of nicotine dependence; Z91.81 History of falling; Z99.81 Dependence on supplemental oxygen; E87.6 Hypokalemia; R20.2 Paresthesia of skin; G89.29 Other chronic pain; E43 Unspecified severe protein-calorie malnutrition; Z68.28 Body mass index [BMI] 28.0-28.9, adult; R00.0 Tachycardia, unspecified; R94.31 Abnormal electrocardiogram [ECG] [EKG]; R11.0 Nausea; R41.3 Other amnesia; R20.0 Anesthesia of skin; H53.8 Other visual disturbances; Z87.19 Personal history of other diseases of the digestive system
CPT/HCPCS: 36415; 70450; 70544; 70547; 70551; 71045; 71275; 73030; 80048; 80061; 81001; 82271; 83735; 84484; 85025; 87426; 92507; 92523; 92526; 92610; 93005; 93308; 94640; 94762; 96361; 96365; 96372; 96375; 96376; 97110; 97162; 97165; 97530; 97535; 97802; 97803; 99218; 99251; 99285; 99406; P9612; A4216; G0378; G0463; J2405

== ENCOUNTER 2021-03-23 20:00 | Observation (INO) | payer MEDICARE, MEDICAID, SELFPAY ==
[2021-03-23 20:02] VITALS: BP 146/119; PULSE 116; RESP 31; TEMP 36.1; O2SAT 96; BMI 27.4
--- NOTE | 2021-03-23 20:19 | RAD_ITS ---
STUDY: XR Chest 1 View 03/23/2021 8:20 PM REASON FOR EXAM: Female, 70 years old. CHEST PAIN chest pain COMPARISON: 02/01/2021 TECHNIQUE: XR Chest 1 View FINDINGS: There is no demonstrated pleural abnormality. Enlarged heart size. Normal mediastinum. Normal denae. Prominent appearing increased interstitial lung markings. Normal visualized pulmonary arteries. There is atherosclerotic calcification of the aortic arch with tortuosity. There are diffuse degenerative changes of the visualized thoracic spine. There is degenerative osteoarthritis of the bilateral shoulders. There is no demonstrated abnormality of the visualized soft tissue structures of the upper abdomen. RAD/Chest 1 View (Portable) IMPRESSION: There are no acute findings. Electronically Signed: Rocco Christiansen MD at 20:42 EDT , Service support ,
--- NOTE | 2021-03-23 20:19 | EKG12_ITS ---
Test Reason : CP Blood Pressure : / mmHG Vent. Rate : 108 BPM Atrial Rate : 108 BPM P-R Int : 138 ms QRS Dur : 084 ms QT Int : 350 ms P-R-T Axes : 069 010 123 degrees QTc Int : 469 ms Sinus tachycardia Low voltage QRS Nonspecific ST and T wave abnormality Abnormal ECG Confirmed by JAMES LEACH, LUZ ([id number]), scientific publications editor WESLY CASTAÑEDA ([id number]) on 03/24/2021 8:42:29 AM Referred By: KATELYN Confirmed By:LUZ RAMIREZ MD
[2021-03-23 20:20] VITALS: PULSE 100; PULSE 112; RESP 12; RESP 28; RESP 32; O2SAT 97
[2021-03-23] MEDS: Albuterol 2.5 MG/3 ML VIAL.NEB. INHALATION (20:20)
[2021-03-23] MEDS: Ipratropium/Albuterol Sulfate 3 ML AMPUL.NEB INHALATION (20:20)
[2021-03-23 20:51] LABS: Absolute Lymphocyte Count 2.46 X10^3/uL (0.83-4.51); Absolute Neutrophil Count 6.8 X10^3/uL (2.0-7.7); Basophil% 0.9 % (0-1); Eosinophil# 0.55 X10^3/uL; Hemoglobin 12.6 g/dL (12.0-15.0); Lymphocyte # 2.46 X10^3/ul (0.83-4.51); Lymphocyte % 22.4 % (19-41); Mean Corp Hgb Conc 31.5 g/dL (32-36); Mean Corpuscular Hgb 29.5 pg (27.0-32.0); Mean Corpuscular Volume 93.7 fL (81-99); Mean Platelet Vol. 9.4 fl (6.2-12.0); NRBC Flagged by Analyzer 0 % (0-5); Neutrophil # 6.75 X10^3/uL (2.7-7.7); Neutrophil % 61.3 % (47-70); Platelet Count 401 K/mm3 (150-450); RBC Distribution Width CV 13.7 % (11.6-14.6); RBC Distribution Width SD 47.1 fl (35.1-43.9); Red Blood Count 4.27 M/mm3 (4.2-5.4)
[2021-03-23 20:52] LABS: Anion Gap 8 (5-15); BUN 6 mg/dL (7-18); BUN/Creat Ratio 11.9 RATIO (10-20); Calcium,Total 9.2 mg/dL (8.5-10.1); Chloride 97 mmol/L (98-107); EST Glomerular Filtration Rate 128 mL/min (>60); Est Glom Filt Rate - Afr Amer 154 mL/min (>60); Estimated Creatinine Clearance 46.43 ml/min; Glucose 190 mg/dL (74-106); Potassium 3.4 mmol/L (3.5-5.1); Sodium Level 136 mmol/L (136-145); Troponin-I HS 19 pg/mL (3.0-54.0)
--- NOTE | 2021-03-23 21:27 | ED.RN ---
PATIENTS FAMILY AT THE BEDSIDE. PATIENT WAS JUST DISCHARGED FROM THE [facility] ON TUESDAY. PATIENT SPOKE TO THE HEATER MECHANIC. HEATER MECHANIC IS WORKING ON GETTING HER TO THE [facility]. PER FAMILY PATIENT NOT ABLE TO TAKE CARE OF HERSELF AT HOME AND NEEDS TO BE PERMANENTLY PLACED IN CARE HOME OR ASSISTED LIVING
--- NOTE | 2021-03-23 21:42 | EX.ED.DYSGE1 ---
HPI History of Present Illness Chief Complaint: Chest Pain Informant: patient and EMS Narrative Narrative: Presents by EMS from home for increasing dyspnea and chest pain for last 2 days. COPD 4 L of chronic oxygen. Reports nonproductive cough increasing dyspnea with wheeze at home. Patient brought in on 4 L however nursing reporting increased working of breathing with respiratory rate 30s to 40s. She was placed on BiPAP on arrival prior to my evaluation. In addition was given aerosol treatments by respiratory due to decreased air movement. She states chest pains due to the cough. Currently reports feels better on the BiPAP. Per report from nursing just discharged from [facility] days ago she is in an apartment has not been taking her medications. [facility] is [facility] Patient reports Covid vaccinated. Denies fevers. Denies vomiting or diarrhea. Records reviewed was discharged to [facility] on February 10 for left-sided weakness with a negative stroke work-up. Prior similar symptoms: Yes [facility] Medical History Abdominal pain Acute gastritis Acute non-ST elevation myocardial infarction (NSTEMI) Anxiety Chronic constipation Chronic hypoxemic respiratory failure COPD (chronic obstructive pulmonary disease) Debility Degenerative disc disease, lumbar Depression Diverticulosis DVT (deep venous thrombosis) Dyspnea Epilepsy Essential tremor Extrapyramidal disorder Fall Gastritis Grade III hemorrhoids Hemorrhoids Hypertension Hypotension Hypothyroidism Insomnia Left arm weakness Obstructive sleep apnea On home oxygen therapy Pain, chronic Paresthesias Physical debility Polyneuropathy Rectal prolapse Restless leg syndrome Seizure disorder Sleep apnea Smoker Spinal stenosis Spinal stenosis of lumbar region Stress bladder incontinence, female Suicide attempt Takotsubo cardiomyopathy Tobacco use Vitamin D deficiency Home Medications duloxetine 20 mg PO DAILY 01/07/19 [History Last Taken 01/15/21] levothyroxine 50 mcg PO DAILY 01/07/19 [History Last Taken 11/21/20] potassium chloride 20 meq PO BID 01/07/19 [History Last Taken 01/15/21] mirtazapine 7.5 mg tablet 7.5 mg PO QHS tablet 02/21/19 [History Last Taken 01/15/21] ropinirole 2 mg PO QHS 08/08/19 [History Last Taken 01/15/21] acetaminophen 650 mg PO Q6H PRN PRN tablet 08/11/19 [Rx Last Taken Unknown] albuterol sulfate 90 mcg/actuation aerosol inhaler 1 inh INHALATION BID PRN PRN 05/13/20 [History Last Taken 11/21/20] calcium carbonate 500 mg calcium (1,250 mg) tablet 500 mg PO BID 05/13/20 [History Last Taken 01/15/21] fluticasone furoate 100 mcg-vilanterol 25 mcg/dose inhalation powder 2 puff INHALATION DAILY 05/13/20 [History Last Taken 11/22/20] mirabegron 25 mg tablet,extended release 24 hr 25 mg PO BID tab 05/13/20 [History Last Taken 01/15/21] omeprazole 20 mg capsule,delayed release 20 mg PO DAILY cap 05/13/20 [History Last Taken 01/15/21] sennosides 8.6 mg-docusate sodium 50 mg tablet 2 tab PO BID 05/13/20 [History Last Taken 01/15/21] brimonidine 0.15 % eye drops 1 drp OPHTHALMIC BID 07/09/20 [History Last Taken 01/15/21] benztropine 2 mg tablet 2 mg PO BID #60 tab 10/13/20 [Rx Last Taken 01/15/21] oxcarbazepine 600 mg tablet 600 mg PO BID #60 tab 10/13/20 [Rx Last Taken 01/15/21] phenobarbital 32.4 mg tablet 32.4 mg PO BID #60 tab 10/13/20 [Rx Last Taken 01/15/21] cholecalciferol (vitamin D3) 1,250 mcg PO WE 10/20/20 [History Last Taken 01/14/21] multivitamin 1 tab PO 1200 10/20/20 [History Last Taken 01/15/21] methadone 10 mg PO TID 5 Days #15 tab 10/25/20 [Rx Last Taken 01/15/21] ferrous sulfate [FeroSul] 325 mg PO 1200,1700 #60 tab 12/03/20 [Rx Last Taken 01/15/21] ondansetron 4 mg PO Q6H PRN 01/10/21 [History Last Taken Unknown] bisacodyl 10 mg CA DAILY PRN 01/16/21 [History Last Taken 01/10/21] loperamide [Imodium A-D] 2 mg PO Q6H PRN 01/16/21 [History Last Taken Unknown] mineral oil 118 ml CA DAILY PRN 01/16/21 [History Last Taken Unknown] Metamucil Fiber Singles 1 packet PO TID #0 ea 01/21/21 [Rx Last Taken Unknown] aspirin 81 mg PO 1200 #30 tab 01/21/21 [Rx Last Taken Unknown] atorvastatin 40 mg PO QHS #30 tab 01/21/21 [Rx Last Taken Unknown] magnesium hydroxide [Milk of Magnesia] 5 ml PO DAILY PRN #150 ml 01/21/21 [Rx Last Taken Unknown] midodrine 10 mg PO TID #90 tab 01/21/21 [Rx Last Taken Unknown] nicotine 1 patch TOPICAL DAILY #30 ea 01/21/21 [Rx Last Taken Unknown] nitroglycerin 0.4 mg SUBLINGUAL Q5M PRN #30 tab 01/21/21 [Rx Last Taken Unknown] polyethylene glycol 3350 17 g PO DAILY #0 ea 01/21/21 [Rx Last Taken Unknown] temazepam 30 mg PO QHS PRN #0 cap 01/21/21 [Rx Last Taken 01/15/21] docusate sodium [Colace] 100 mg PO DAILY #10 cap 01/31/21 [Rx Last Taken Unknown] hydrocortisone [Procto-Med HC] 1 applic CA DAILY PRN #30 g 01/31/21 [Rx Last Taken Unknown] Allergy/AdvReac Type Severity Reaction Status Date / Time codeine Allergy Mild HIVES Verified 03/23/21 20:02 Penicillins Allergy Anaphylaxis Verified 03/23/21 20:02 Family History Mother Diabetes Heart disease Hypertension CAD (coronary artery disease) CVA (cerebral vascular accident) Thyroid disorder Father Colon cancer Surgical History History of bilateral carpal tunnel release History of bilateral cataract extraction History of blepharoplasty History of cystoscopy History of esophagogastroduodenoscopy (EGD) (~03/07/19) History of left heart catheterization (01/16/21) History of right hip replacement History of right salpingo-oophorectomy S/P appendectomy S/P laparoscopic cholecystectomy Status post ORIF of fracture of ankle Social History household members: none housing: apartment pets and animals: Yes (cat) pets and animals: cat(s) Smoking Status: Former smoker Tobacco: How many years used: 50 alcohol intake: never substance use type: does not use well-balanced diet: rarely or never do you feel safe at home: Yes ROS ROS ED Constitutional Constitutional ED: Denies chills, fever(s) or sweats Eyes Eyes: Denies change in vision ENT ENT ED: Denies dysphagia or sore throat Cardiovascular Cardiovascular: Reports chest pain; Denies leg edema, palpitations or racing heartbeat Respiratory/Chest Respiratory/Chest: Reports cough and dyspnea; Denies dyspnea on exertion Gastrointestinal Gastrointestinal: Denies abdominal pain, diarrhea, nausea or vomiting Genitourinary Genitourinary ED: Denies dysuria, hematuria or urinary frequency Musculoskeletal Musculoskeletal: Denies back pain, extremity pain or neck pain Integumentary Denies rash or wounds Neurologic Neurologic: Denies headache(s), paresthesias or weakness EXAM Physical Exam Const Vital Signs: 03/23/21 20:02 03/23/21 20:20 03/23/21 20:33 Temperature 96.9 F L Temperature Source Temporal Pulse Rate 116 H 100 Respiratory Rate 31 H 32 H Respiratory Effort Short of Breath Labored Respiratory Depth Shallow Respiratory Pattern Tachypnea Blood Pressure 146/119 H Blood Pressure Mean 128 Pulse Ox 96 97 Oxygen Delivery Method Nasal Cannula Bi-pap Bi-pap Oxygen Flow Rate (L/min) 4 Fraction of Inspired Oxygen (FIO2) 30 03/23/21 20:34 03/23/21 22:28 Temperature 97.9 F Temperature Source Temporal Pulse Rate 83 Respiratory Rate 23 H Respiratory Effort Labored Respiratory Depth Respiratory Pattern Blood Pressure 97/67 Blood Pressure Mean 77 Pulse Ox 99 Oxygen Delivery Method Nasal Cannula Oxygen Flow Rate (L/min) 4 Fraction of Inspired Oxygen (FIO2) Positive well nourished and well developed Constitutional Narrative: On BiPAP, no respiratory distress. General Appearance ED: well developed and NAD HEENT normocephalic and atraumatic Eyes EOMs intact bilaterally and conjunctivae normal General Eye ED: Yes normal appearance of both eyes Neck no lymphadenopathy and supple General: Negative for tenderness Chest Wall Chest: Negative for tenderness Resp normal respiratory effort and normal air movement Effort and Inspection: symmetric chest movement; Negative for respiratory distress Cardio regular rate, regular rhythm and no murmurs Peripheral Pulses: pulses 2+ throughout GI normal to inspection, nondistended, normoactive bowel sounds and non-tender Palpation: Negative for guarding or rebound tenderness present Back/Spine no CVA tenderness and no thoracic nor lumbar tenderness Extremity normal to inspection General Extremety ED: Negative for edema or tenderness General Extremity: Negative for edema Neuro oriented x3 and no sensory deficits noted Sensorium / Orientation: awake and alert Skin no rashes or lesions noted and no wounds MDM MDM MDM Narrative Medical decision making narrative: Patient was on a BiPAP during my evaluation she was in no respiratory distress. Chest x-ray negative. Per report from respiratory therapy she had tight lungs on exam breathing 30-40 times a minute. Solu-Medrol was given. Status post aerosol treatments prior to my exam. Labs stable troponin negative at 19. EKG is sinus tachycardia with no acute findings. Evaluation of records noted she was admitted for an NSTEMI earlier in January had a heart cath that was normal with a EF of 35% concerning for Takotsubo's cardiomyopathy. Therefore with her pain symptoms less likely cardiac in nature. She was weaned off the BiPAP back to her 4 L of oxygen and monitored remained stable. She has been noncompliant with her medications since being home. Family has plans to [facility] to [facility]. With her exacerbation however discussed with hospitalist service for admission. Lab Data Attestation: I reviewed the patient's lab results. Labs: Laboratory Results - last 24 hr 03/23/21 03/23/21 20:12 20:12 WBC 11.0 RBC 4.27 Hgb 12.6 Hct 40.0 MCV 93.7 MCH 29.5 MCHC 31.5 L RDW Std Deviation 47.1 H RDW Coeff of Jordin 13.7 Plt Count 401 MPV 9.4 Immature Gran % (Auto) 0.400 Neut % (Auto) 61.3 Lymph % (Auto) 22.4 [place] % (Auto) 10.0 Eos % (Auto) 5.0 Baso % (Auto) 0.9 Absolute Neuts (auto) 6.8 Absolute Lymphs (auto) 2.46 Nucleated RBC % 0 Sodium 136 Potassium 3.4 L Chloride 97 L Carbon Dioxide 31.0 Anion Gap 8 BUN 6 L Creatinine 0.50 L Estim Creat Clear Calc 46.43 Est GFR (MDRD) Af Amer 154 Est GFR (MDRD) Non-Af 128 BUN/Creatinine Ratio 11.9 Glucose 190 H Calcium 9.2 Troponin I High Sens 19 ABG Data ABG results: ABG 03/23/21 21:58 Specimen Type ART Sample Site L Radial pH 7.44 Bicarbonate Actual 28.0 H Total CO2 29 Base Excess 4 H O2 Saturation 97 O2 % 30 ABG pCO2 41.1 ABG pO2 87 Romario Test Positive Respiration Rate 12 O2 Delivery Device BiPAP Clinical Comments BiPAP 14/6 12f 30% Radiography Chest X-Ray - ED: 1 View, Read by ED Physician and Read by Radiologist Diagnostic Testing: Radiology Impression Chest X-Ray 03/23/21 20:19 IMPRESSION: There are no acute findings. Electronically Signed: Rocco Christiansen MD at 20:42 EDT , Service support , EKG Initial EKG: Attestation: I personally reviewed and interpreted this EKG as follows: Interpretation: Sinus Rhythm Comments: Sinus rate of 108, no ST changes. T wave inversions V4 to V6. Discharge Plan Dx/Rx/DC Orders Clinical Impression: COPD exacerbation, Chest pain Disposition Disposition: Acute Care [facility]
[2021-03-23] MEDS: MethylPREDNISolone 125 MG/2 ML Vial IV (21:50)
[2021-03-23 22:05] LABS: Allen Test Positive; Base Excess 4 mmol/L (-2 to +2); Blood Gas Specimen Type ART; FI02 30; O2 Delivery Device BiPAP; PO2 87 mmHG (75-100); RR 12; SITE L Radial; SO2 97 % (95-99); Total Carbon Dioxide 29 mmol/L; pCO2 41.1 mmHg (35-45); pH 7.44 (7.35-7.45)
[2021-03-23] MEDS: Morphine 4 MG/ML Syringe IV (22:26)
[2021-03-23 22:28] VITALS: BP 97/67; PULSE 83; RESP 23; TEMP 36.6; O2SAT 99
--- NOTE | 2021-03-23 22:40 | CPS ---
Pt. given break from BiPAP and placed back on to 4L NC per Dr. Coto
--- NOTE | 2021-03-23 22:43 | CPS ---
x1 Albuterol given to pt. in ER as well
--- NOTE | 2021-03-23 23:53 | HP.PCM_ITS ---
Documented by User: MAURICIO Zamora 03/24/21 01:01 HPI - General General Date of Admission: 03/23/21 Date of Service: 03/23/21 Chief Complaint: Chest pain, Debility HPI Narrative XANDER RAMIREZ, is a 70 F who presents for complaints of chest pain. Patient left [facility] approximately 2 days ago after an extended stay. Patient's family is concerned that patient has not been taking all of her medications as patient has had increased shortness of breath. Patient's family reports that they are wanting [facility]. Patient denies fever, chills, cough, nausea, vomiting, constipation, diarrhea. Patient reports chest pain and shortness of breath. Patient has been admitted multiple times this year for various complaints. [facility] Medical History Abdominal pain Acute gastritis Acute non-ST elevation myocardial infarction (NSTEMI) Anxiety Chronic constipation Chronic hypoxemic respiratory failure COPD (chronic obstructive pulmonary disease) Debility Degenerative disc disease, lumbar Depression Diverticulosis DVT (deep venous thrombosis) Dyspnea Epilepsy Essential tremor Extrapyramidal disorder Fall Gastritis Grade III hemorrhoids Hemorrhoids Hypertension Hypotension Hypothyroidism Insomnia Left arm weakness Obstructive sleep apnea On home oxygen therapy Pain, chronic Paresthesias Physical debility Polyneuropathy Rectal prolapse Restless leg syndrome Seizure disorder Sleep apnea Smoker Spinal stenosis Spinal stenosis of lumbar region Stress bladder incontinence, female Suicide attempt Takotsubo cardiomyopathy Tobacco use Vitamin D deficiency Home Medications duloxetine 20 mg PO DAILY 01/07/19 [History Last Taken 01/15/21] levothyroxine 50 mcg PO DAILY 01/07/19 [History Last Taken 11/21/20] potassium chloride 20 meq PO BID 01/07/19 [History Last Taken 01/15/21] mirtazapine 7.5 mg tablet 7.5 mg PO QHS tablet 02/21/19 [History Last Taken 01/15/21] ropinirole 2 mg PO QHS 08/08/19 [History Last Taken 01/15/21] acetaminophen 650 mg PO Q6H PRN PRN tablet 08/11/19 [Rx Last Taken Unknown] albuterol sulfate 90 mcg/actuation aerosol inhaler 1 inh INHALATION BID PRN PRN 05/13/20 [History Last Taken 11/21/20] calcium carbonate 500 mg calcium (1,250 mg) tablet 500 mg PO BID 05/13/20 [History Last Taken 01/15/21] fluticasone furoate 100 mcg-vilanterol 25 mcg/dose inhalation powder 2 puff INHALATION DAILY 05/13/20 [History Last Taken 11/22/20] mirabegron 25 mg tablet,extended release 24 hr 25 mg PO BID tab 05/13/20 [History Last Taken 01/15/21] omeprazole 20 mg capsule,delayed release 20 mg PO DAILY cap 05/13/20 [History Last Taken 01/15/21] sennosides 8.6 mg-docusate sodium 50 mg tablet 2 tab PO BID 05/13/20 [History Last Taken 01/15/21] brimonidine 0.15 % eye drops 1 drp OPHTHALMIC BID 07/09/20 [History Last Taken 01/15/21] benztropine 2 mg tablet 2 mg PO BID #60 tab 10/13/20 [Rx Last Taken 01/15/21] oxcarbazepine 600 mg tablet 600 mg PO BID #60 tab 10/13/20 [Rx Last Taken 01/15/21] phenobarbital 32.4 mg tablet 32.4 mg PO BID #60 tab 10/13/20 [Rx Last Taken 01/15/21] cholecalciferol (vitamin D3) 1,250 mcg PO WE 10/20/20 [History Last Taken 01/14/21] multivitamin 1 tab PO 1200 10/20/20 [History Last Taken 01/15/21] methadone 10 mg PO TID 5 Days #15 tab 10/25/20 [Rx Last Taken 01/15/21] ferrous sulfate [FeroSul] 325 mg PO 1200,1700 #60 tab 12/03/20 [Rx Last Taken 01/15/21] ondansetron 4 mg PO Q6H PRN 01/10/21 [History Last Taken Unknown] bisacodyl 10 mg AK DAILY PRN 01/16/21 [History Last Taken 01/10/21] loperamide [Imodium A-D] 2 mg PO Q6H PRN 01/16/21 [History Last Taken Unknown] mineral oil 118 ml AK DAILY PRN 01/16/21 [History Last Taken Unknown] Metamucil Fiber Singles 1 packet PO TID #0 ea 01/21/21 [Rx Last Taken Unknown] aspirin 81 mg PO 1200 #30 tab 01/21/21 [Rx Last Taken Unknown] atorvastatin 40 mg PO QHS #30 tab 01/21/21 [Rx Last Taken Unknown] magnesium hydroxide [Milk of Magnesia] 5 ml PO DAILY PRN #150 ml 01/21/21 [Rx Last Taken Unknown] midodrine 10 mg PO TID #90 tab 01/21/21 [Rx Last Taken Unknown] nicotine 1 patch TOPICAL DAILY #30 ea 01/21/21 [Rx Last Taken Unknown] nitroglycerin 0.4 mg SUBLINGUAL Q5M PRN #30 tab 01/21/21 [Rx Last Taken Unknown] polyethylene glycol 3350 17 g PO DAILY #0 ea 01/21/21 [Rx Last Taken Unknown] temazepam 30 mg PO QHS PRN #0 cap 01/21/21 [Rx Last Taken 01/15/21] docusate sodium [Colace] 100 mg PO DAILY #10 cap 01/31/21 [Rx Last Taken Unknown] hydrocortisone [Procto-Med HC] 1 applic AK DAILY PRN #30 g 01/31/21 [Rx Last Taken Unknown] Allergy/AdvReac Type Severity Reaction Status Date / Time codeine Allergy Mild HIVES Verified 03/23/21 20:02 Penicillins Allergy Anaphylaxis Verified 03/23/21 20:02 Family History Mother Diabetes Heart disease Hypertension CAD (coronary artery disease) CVA (cerebral vascular accident) Thyroid disorder Father Colon cancer Surgical History History of bilateral carpal tunnel release History of bilateral cataract extraction History of blepharoplasty History of cystoscopy History of esophagogastroduodenoscopy (EGD) (~03/07/19) History of left heart catheterization (01/16/21) History of right hip replacement History of right salpingo-oophorectomy S/P appendectomy S/P laparoscopic cholecystectomy Status post ORIF of fracture of ankle Social History household members: none housing: apartment pets and animals: Yes (cat) pets and animals: cat(s) Smoking Status: Former smoker Tobacco: How many years used: 50 alcohol intake: never substance use type: does not use well-balanced diet: rarely or never do you feel safe at home: Yes ROS Constitutional Constitutional: Reports weakness; Denies anorexia, chills, fatigue, fever(s) or malaise Cardiovascular Cardiovascular: Reports chest pain; Denies edema, palpitations or syncope Respiratory/Chest Respiratory/Chest: Reports shortness of breath at rest, shortness of breath with exertion and wheezing; Denies cough Gastrointestinal Gastrointestinal: Denies abdominal pain, constipation, diarrhea, nausea or vomiting Genitourinary Genitourinary: Denies dysuria Musculoskeletal Musculoskeletal: Denies back pain, extremity pain, joint pain, joint stiffness or joint swelling Integumentary Integumentary: Denies dry skin Neurologic Neurologic: Denies abnormal gait, abnormal speech, confusion or dizziness Psychiatric Psychiatric: Denies anxiety or depression Endocrine Endocrinology: Denies change in body appearance Hematologic/Lymphatic Hematologic/Lymphatic: Denies anemia, easy bleeding or easy bruising Vital Signs Vital Signs Vital Signs: 03/23/21 20:02 03/23/21 20:20 03/23/21 20:33 Temperature 96.9 F L Temperature Source Temporal Pulse Rate 116 H 100 Respiratory Rate 31 H 32 H Respiratory Effort Short of Breath Labored Respiratory Depth Shallow Respiratory Pattern Tachypnea Blood Pressure 146/119 H Blood Pressure Mean 128 Pulse Ox 96 97 Oxygen Delivery Method Nasal Cannula Bi-pap Bi-pap Oxygen Flow Rate (L/min) 4 Fraction of Inspired Oxygen (FIO2) 30 03/23/21 20:34 03/23/21 22:28 Temperature 97.9 F Temperature Source Temporal Pulse Rate 83 Respiratory Rate 23 H Respiratory Effort Labored Respiratory Depth Respiratory Pattern Blood Pressure 97/67 Blood Pressure Mean 77 Pulse Ox 99 Oxygen Delivery Method Nasal Cannula Oxygen Flow Rate (L/min) 4 Fraction of Inspired Oxygen (FIO2) Weight Weight: 164 lb 14.492 oz Body Mass Index (BMI) 27.4 Physical Exam Const alert, oriented x3 and no apparent distress General Appearance: cooperative HEENT normocephalic and head/scalp atraumatic Eyes conjunctivae normal and no scleral icterus Neck supple General: trachea midline Resp normal respiratory effort Effort and Inspection: tachypneic Auscultation: wheezes expiratory wheezes and diminished lung sounds Cardio regular rate, regular rhythm, S1 normal heart sound, S2 normal heart sound and peripheral pulses 2+ throughout Extremity normal capillary refill and no clubbing, cyanosis or edema General Extremity: no tenderness to palpation of joints or extremities Skin General Skin Exam: turgor normal Lesions: no lesions Rashes: no rashes Neuro no focal motor deficits and no sensory deficits noted Speech: speech normal Motor Exam: general weakness Psych thought process normal, cooperative and affect normal Appearance: appropriate Results Lab / Micro Data Result Diagrams: 03/24/21 04:08 03/24/21 04:08 Labs: Laboratory Results - last 24 hr 03/23/21 20:12: WBC 11.0, RBC 4.27, Hgb 12.6, Hct 40.0, MCV 93.7, MCH 29.5, MCHC 31.5 L, RDW Std Deviation 47.1 H, RDW Coeff of Jordin 13.7, Plt Count 401, MPV 9.4, Immature Gran % (Auto) 0.400, Neut % (Auto) 61.3, Lymph % (Auto) 22.4, Jones % (Auto) 10.0, Eos % (Auto) 5.0, Baso % (Auto) 0.9, Absolute Neuts (auto) 6.8, Absolute Lymphs (auto) 2.46, Nucleated RBC % 0 03/23/21 20:12: Sodium 136, Potassium 3.4 L, Chloride 97 L, Carbon Dioxide 31.0, Anion Gap 8, BUN 6 L, Creatinine 0.50 L, Estim Creat Clear Calc 46.43, Est GFR (MDRD) Af Amer 154, Est GFR (MDRD) Non-Af 128, BUN/Creatinine Ratio 11.9, Glucose 190 H, Calcium 9.2, Troponin I High Sens 19 Micro: Microbiology 03/23/21 21:45 Nasal Secretion SARS-CoV-2 Antigen (Rapid) - Final ABG Data ABG results: ABG 03/23/21 21:58 Specimen Type ART Sample Site L Radial pH 7.44 Bicarbonate Actual 28.0 H Total CO2 29 Base Excess 4 H O2 Saturation 97 O2 % 30 ABG pCO2 41.1 ABG pO2 87 Romario Test Positive Respiration Rate 12 O2 Delivery Device BiPAP Clinical Comments BiPAP 14/6 12f 30% Radiology Impression Chest X-Ray 03/23/21 20:19 IMPRESSION: There are no acute findings. Electronically Signed: Rocco Christiansen MD at 20:42 EDT , Service support , Assessment & Plan Assessment/Plan (1) COPD exacerbation: (2) Physical debility: PLAN: 1. COPD exacerbation -Admit to PCU -Continue albuterol treatments every 6 hours while awake -IV Solu-Medrol ordered -No antibiotics ordered at this time, no increased sputum production or severity of cough -CBC, BMP, mag, Phos, TSH ordered for a.m. -Oxygen per protocol, currently on 5 L nasal cannula oxygen -Encourage incentive spirometry -BiPAP at at bedtime and as needed -PT and OT to eval and treat -Consult case management for discharge planning to [facility] 2. Chest pain -Cardiac Catheterization performed on 01/16/2021 demonstrates EF 35 to 40% and hypokinetic LV consistent with Takotsubo cardiomyopathy -Trend cardiac enzymes -Obtain EKG for any arrhythmia or symptom changes We will continue outpatient medications related to patient's chronic diseases. DVT prophylaxis-subcu Lovenox This patient was seen by MAURICIO Zamora under the supervision of Dr. Pagan. Documented by User: Dr. Saulo Pagan MD 03/24/21 04:56 HPI - General General Date of Admission: 03/23/21 [facility] Medical History Abdominal pain Acute gastritis Acute non-ST elevation myocardial infarction (NSTEMI) Anxiety Chronic constipation Chronic hypoxemic respiratory failure COPD (chronic obstructive pulmonary disease) Debility Degenerative disc disease, lumbar Depression Diverticulosis DVT (deep venous thrombosis) Dyspnea Epilepsy Essential tremor Extrapyramidal disorder Fall Gastritis Grade III hemorrhoids Hemorrhoids Hypertension Hypotension Hypothyroidism Insomnia Left arm weakness Obstructive sleep apnea On home oxygen therapy Pain, chronic Paresthesias Physical debility Polyneuropathy Rectal prolapse Restless leg syndrome Seizure disorder Sleep apnea Smoker Spinal stenosis Spinal stenosis of lumbar region Stress bladder incontinence, female Suicide attempt Takotsubo cardiomyopathy Tobacco use Vitamin D deficiency Home Medications duloxetine 20 mg PO DAILY 01/07/19 [History Last Taken 01/15/21] levothyroxine 50 mcg PO DAILY 01/07/19 [History Last Taken 11/21/20] potassium chloride 20 meq PO BID 01/07/19 [History Last Taken 01/15/21] mirtazapine 7.5 mg tablet 7.5 mg PO QHS tablet 02/21/19 [History Last Taken 01/15/21] ropinirole 2 mg PO QHS 08/08/19 [History Last Taken 01/15/21] acetaminophen 650 mg PO Q6H PRN PRN tablet 08/11/19 [Rx Last Taken Unknown] albuterol sulfate 90 mcg/actuation aerosol inhaler 1 inh INHALATION BID PRN PRN 05/13/20 [History Last Taken 11/21/20] calcium carbonate 500 mg calcium (1,250 mg) tablet 500 mg PO BID 05/13/20 [History Last Taken 01/15/21] fluticasone furoate 100 mcg-vilanterol 25 mcg/dose inhalation powder 2 puff INHALATION DAILY 05/13/20 [History Last Taken 11/22/20] mirabegron 25 mg tablet,extended release 24 hr 25 mg PO BID tab 05/13/20 [History Last Taken 01/15/21] omeprazole 20 mg capsule,delayed release 20 mg PO DAILY cap 05/13/20 [History Last Taken 01/15/21] sennosides 8.6 mg-docusate sodium 50 mg tablet 2 tab PO BID 05/13/20 [History Last Taken 01/15/21] brimonidine 0.15 % eye drops 1 drp OPHTHALMIC BID 07/09/20 [History Last Taken 01/15/21] benztropine 2 mg tablet 2 mg PO BID #60 tab 10/13/20 [Rx Last Taken 01/15/21] oxcarbazepine 600 mg tablet 600 mg PO BID #60 tab 10/13/20 [Rx Last Taken 01/15/21] phenobarbital 32.4 mg tablet 32.4 mg PO BID #60 tab 10/13/20 [Rx Last Taken 01/15/21] cholecalciferol (vitamin D3) 1,250 mcg PO WE 10/20/20 [History Last Taken 01/14/21] multivitamin 1 tab PO 1200 10/20/20 [History Last Taken 01/15/21] methadone 10 mg PO TID 5 Days #15 tab 10/25/20 [Rx Last Taken 01/15/21] ferrous sulfate [FeroSul] 325 mg PO 1200,1700 #60 tab 12/03/20 [Rx Last Taken 01/15/21] ondansetron 4 mg PO Q6H PRN 01/10/21 [History Last Taken Unknown] bisacodyl 10 mg AK DAILY PRN 01/16/21 [History Last Taken 01/10/21] loperamide [Imodium A-D] 2 mg PO Q6H PRN 01/16/21 [History Last Taken Unknown] mineral oil 118 ml AK DAILY PRN 01/16/21 [History Last Taken Unknown] Metamucil Fiber Singles 1 packet PO TID #0 ea 01/21/21 [Rx Last Taken Unknown] aspirin 81 mg PO 1200 #30 tab 01/21/21 [Rx Last Taken Unknown] atorvastatin 40 mg PO QHS #30 tab 01/21/21 [Rx Last Taken Unknown] magnesium hydroxide [Milk of Magnesia] 5 ml PO DAILY PRN #150 ml 01/21/21 [Rx Last Taken Unknown] midodrine 10 mg PO TID #90 tab 01/21/21 [Rx Last Taken Unknown] nicotine 1 patch TOPICAL DAILY #30 ea 01/21/21 [Rx Last Taken Unknown] nitroglycerin 0.4 mg SUBLINGUAL Q5M PRN #30 tab 01/21/21 [Rx Last Taken Unknown] polyethylene glycol 3350 17 g PO DAILY #0 ea 01/21/21 [Rx Last Taken Unknown] temazepam 30 mg PO QHS PRN #0 cap 01/21/21 [Rx Last Taken 01/15/21] docusate sodium [Colace] 100 mg PO DAILY #10 cap 01/31/21 [Rx Last Taken Unknow n] hydrocortisone [Procto-Med HC] 1 applic AK DAILY PRN #30 g 01/31/21 [Rx Last Taken Unknown] Allergy/AdvReac Type Severity Reaction Status Date / Time codeine Allergy Mild HIVES Verified 03/23/21 20:02 Penicillins Allergy Anaphylaxis Verified 03/23/21 20:02 Family History Mother Diabetes Heart disease Hypertension CAD (coronary artery disease) CVA (cerebral vascular accident) Thyroid disorder Father Colon cancer Surgical History History of bilateral carpal tunnel release History of bilateral cataract extraction History of blepharoplasty History of cystoscopy History of esophagogastroduodenoscopy (EGD) (~03/07/19) History of left heart catheterization (01/16/21) History of right hip replacement History of right salpingo-oophorectomy S/P appendectomy S/P laparoscopic cholecystectomy Status post ORIF of fracture of ankle Social History household members: none housing: apartment pets and animals: Yes (cat) pets and animals: cat(s) Smoking Status: Former smoker Tobacco: How many years used: 50 alcohol intake: never substance use type: does not use well-balanced diet: rarely or never do you feel safe at home: Yes Results Lab / Micro Data Result Diagrams: 03/24/21 04:08 03/24/21 04:08 Charges/Coding Addendum Addendum: Seen and examined by myself agree with above assessment and plan
[2021-03-24] VITALS (16 sets, daily range): BP systolic 110–177; BP diastolic 74–84; PULSE 71–100; RESP 12–20; TEMP 36.2–37.2; O2SAT 96–100; BMI 26.6
[2021-03-24] MEDS: OXcarbazepine 600 MG Tablet PO ×3 (01:16→09:25)
[2021-03-24] MEDS: Pramipexole Di-HCl 1 MG Tablet PO ×2 (01:16→22:19)
[2021-03-24] MEDS: Phenobarbital 32.4 MG Tablet PO ×2 (01:17→09:22)
[2021-03-24] MEDS: Temazepam 15 MG Capsule 30 MG PO ×2 (01:17→22:00)
[2021-03-24] MEDS: Mirtazapine 15 MG Tablet 7.5 MG PO ×2 (01:17→22:22)
[2021-03-24] MEDS: Benztropine 2 MG Tablet PO ×2 (01:17→09:25)
[2021-03-24] MEDS: Methadone 10 MG Tablet PO ×3 (01:17→13:20)
[2021-03-24 01:26] LABS: Troponin-I HS 16 pg/mL (3.0-54.0)
[2021-03-24 04:17] LABS: Absolute Lymphocyte Count 0.95 X10^3/uL (0.83-4.51); Absolute Neutrophil Count 5.2 X10^3/uL (2.0-7.7); Basophil# 0.04 X10^3/uL; Basophil% 0.6 % (0-1); Hematocrit 33.4 % (37-47); Hemoglobin 10.8 g/dL (12.0-15.0); Lymphocyte # 0.95 X10^3/ul (0.83-4.51); Mean Corp Hgb Conc 32.3 g/dL (32-36); Mean Corpuscular Hgb 30.3 pg (27.0-32.0); Mean Corpuscular Volume 93.6 fL (81-99); Mean Platelet Vol. 8.7 fl (6.2-12.0); Monocyte% 1.6 % (0-10); NRBC Flagged by Analyzer 0 % (0-5); Neutrophil # 5.22 X10^3/uL (2.7-7.7); Neutrophil % 82.5 % (47-70); Platelet Count 272 K/mm3 (150-450); RBC Distribution Width CV 13.6 % (11.6-14.6); RBC Distribution Width SD 46.5 fl (35.1-43.9); Red Blood Count 3.57 M/mm3 (4.2-5.4); White Blood Count 6.3 K/mm3 (4.4-11.0)
[2021-03-24 04:39] LABS: Anion Gap 8 (5-15); BUN 7 mg/dL (7-18); BUN/Creat Ratio 23.3 RATIO (10-20); Calcium,Total 8.3 mg/dL (8.5-10.1); Chloride 100 mmol/L (98-107); EST Glomerular Filtration Rate 232 mL/min (>60); Est Glom Filt Rate - Afr Amer 281 mL/min (>60); Estimated Creatinine Clearance 46.43 ml/min; Glucose 160 mg/dL (74-106); Magnesium 2.1 mg/dL (1.6-2.6); Phosphorus 3.7 mg/dL (2.5-4.9); Potassium 3.6 mmol/L (3.5-5.1); Sodium Level 136 mmol/L (136-145); Thyroid Stim Hormone (TSH) 0.24 uIU/mL (0.358-3.74); Troponin-I HS 15 pg/mL (3.0-54.0)
[2021-03-24] MEDS: Psyllium 1 PACKET PO ×2 (06:28→13:20)
[2021-03-24] MEDS: 0.9% Saline Lock 10 ML Syringe IV ×4 (06:28→22:00)
[2021-03-24] MEDS: Midodrine HCl 5 MG Tablet 10 MG PO ×2 (06:28→13:21)
[2021-03-24] MEDS: Levothyroxine 50 MCG Tablet PO (06:31)
[2021-03-24] MEDS: Albuterol 2.5 MG/3 ML VIAL.NEB. INHALATION ×2 (07:10→13:37)
[2021-03-24] MEDS: Polyethylene Glycol 3350 17 GM PACKET PO (09:20)
[2021-03-24] MEDS: BRIMONIDINE 0.15% 5 ML Bottle 1 DRP OPHTHALMIC ×2 (09:22→22:04)
[2021-03-24] MEDS: DULoxetine Hcl 20 MG Capsule PO (09:25)
[2021-03-24] MEDS: Calcium (Elemental) 500 MG Tablet PO (09:25)
[2021-03-24] MEDS: Mirabegron 25 MG TAB.ER.24H PO (09:25)
[2021-03-24] MEDS: Potassium Chloride Oral Tablet 20 MEQ PO (09:25)
[2021-03-24] MEDS: Pantoprazole Sodium 20 MG Tablet PO (09:25)
[2021-03-24] MEDS: Docusate Sodium 100 MG Capsule PO (09:25)
[2021-03-24] MEDS: Enoxaparin 40 MG/0.4 ML Syringe SC (09:26)
--- NOTE | 2021-03-24 10:04 | CASEMGMT ---
SW reviewed chart and noted patient's family has been trying to get her into [facility]. SW called Yana at [facility] and she said Beata Gustavo from [facility] and patient's son in law called her yesterday. They were trying to get her into [facility] from home, but they did not have any luck getting paperwork from [facility] as no one would respond. She said she can take patient when she is ready. SW told her SW will have to check as patient may trip the screen on her PASRR due to her past psych admission. SW will send clinicals to [facility]. SW called Beata Chen. She said that she was trying to get patient into [facility] from home, but [facility] would not get back to her with paperwork she needed. She said patient wants to go correction. SW told her SW will work on this. SW spoke with patient. Introduced self and role at [facility]. Patient confirmed she plans on going [facility]. She said Beata Chen was working on this. SW let her know SW spoke with Beata. Michela Rosas CONTRACTS INTERN EMMA
--- NOTE | 2021-03-24 11:10 | CASEMGMT ---
SW completed PASRR and submitted it. However, now on the PASRR if a patient has Epilepsy,was diagnosed before age 21, and it will last indefinitely the patient trips the screen for review by Board of DD. Unfortunately we will have to wait on the state to approve patient to move to [facility]. Michela Rosas AMMUNITION ASSEMBLY LABORER EMMA
[2021-03-24] MEDS: Multivitamins,Therapeutic Tablet 1 TABLET PO (11:17)
[2021-03-24] MEDS: Aspirin E.C. 81 MG Tablet PO (11:17)
[2021-03-24] MEDS: Ferrous Sulfate 325 MG Tablet PO (11:17)
--- NOTE | 2021-03-24 13:18 | CASEMGMT ---
GRAHAM called patient's son Yaakov and let him know SW spoke with patient and she said she was trying to get into [facility]. SW told him that [facility] can take her. GRAHAM told him similar to last time she had to stay extra days waiting on the state to approve her due to her past psych admission she will have to stay this time due to her epilepsy. GRAHAM told him SW will keep him updated as SW hears more information. Michela Rosas BAR HOSTESS EMMA
--- NOTE | 2021-03-24 14:06 | CASEMGMT ---
Addendum entered by Michela Rosas 03/24/21 14:25: GRAHAM received a return phone call from Val with [facility] and SW read her the letter that was in the [employer] system. She said patient can be discharged. GRAHAM notified physician. GRAHAM will also notify patient and her son Yaakov. Michela Rosas WASTEWATER ANALYST LAB ANALYST EMMA Original Note: GRAHAM reviewed the PASRR on [employer] and it appears that patient has been approved. However, GRAHAM has not received a fax or phone call. GRAHAM called [facility] and left a voice mail requesting a return call. GRAHAM also updated Yana at [place]. [facility] GRAHAM will notify physician. Michela Rosas WASTEWATER ANALYST LAB ANALYSTMichelle CARTER
--- NOTE | 2021-03-24 14:16 | PCM.DC ---
Discharge Instructions Diet Discharge Diet: No restrictions Activity Discharge Activity: Return to Normal Activity Weight Bearing Status: Weight bearing as tolerated Dressing / Incision Call your doctor if you observe: Fever of 101 or Higher, Numbness or Tingling, Shortness of breath, Dizziness, Chest pain, Increased palpitations (irregular heartbeat) and Calf discomfort Follow Up Care Please Follow Up With: Primary care provider When: Within the next two weeks. Test Results: Test results from this visit will be discussed in further detail at your follow-up appointment, if applicable. Discharge Plan Admission Admit Date/Time: 03/23/21 23:40 Primary Reason for Your Visit: Chest pain & Shortness of breath Attending Provider: Silva Greene Primary Care Provider: Patel Veliz Chi Discharge Orders/Prescriptions Prescriptions: New prednisone 20 mg tablet 40 mg PO DAILY Qty: 10 RF: 0 Continued Myrbetriq 25 mg tablet extended release 24 hr 25 mg PO BID RF: 0 omeprazole 20 mg capsule,delayed release(DR/EC) 20 mg PO DAILY RF: 0 sennosides-docusate sodium [Senexon-S] 8.6-50 mg tablet 2 tab PO BID RF: 0 calcium carbonate [Oyster Shell Calcium] 500 mg calcium (1,250 mg) tablet 500 mg PO BID RF: 0 fluticasone furoate-vilanterol 100-25 mcg/dose blister with device 2 puff INHALATION DAILY RF: 0 albuterol sulfate [Ventolin HFA] 90 mcg/actuation HFA aerosol inhaler 1 inh INHALATION BID PRN PRN (Reason: COPD) RF: 0 brimonidine 0.15 % drops 1 drp OPHTHALMIC BID RF: 0 benztropine 2 mg tablet 2 mg PO BID Qty: 60 RF: 3 oxcarbazepine 600 mg tablet 600 mg PO BID Qty: 60 RF: 3 phenobarbital 32.4 mg tablet 32.4 mg PO BID Qty: 60 RF: 3 potassium chloride 20 MEQ tablet 20 meq PO BID RF: 0 levothyroxine 50 MCG tablet 50 mcg PO DAILY RF: 0 duloxetine 20 MG capsule,delayed release(DR/EC) 20 mg PO DAILY RF: 0 mirtazapine 7.5 mg tablet 7.5 mg PO QHS RF: 0 ropinirole 2 MG tablet 2 mg PO QHS RF: 0 acetaminophen 325 MG tablet 650 mg PO Q6H PRN PRN (Reason: Pain Score 1-10/Temp > 100.7 F) RF: 0 multivitamin Tablet 1 tab PO 1200 RF: 0 cholecalciferol (vitamin D3) 1,250 mcg (50,000 unit) capsule 1,250 mcg PO WE RF: 0 methadone 10 mg tablet 10 mg PO TID 5 Days Qty: 15 RF: 0 ferrous sulfate [FeroSul] 325 mg (65 mg iron) Tablet 325 mg PO 1200,1700 Qty: 60 RF: 1 ondansetron 4 mg Tablet,Disintegrating 4 mg PO Q6H PRN (Reason: Nausea) RF: 0 loperamide [Imodium A-D] 2 mg Tablet 2 mg PO Q6H PRN (Reason: Diarrhea) RF: 0 mineral oil Enema 118 ml OH DAILY PRN (Reason: Constipation) RF: 0 bisacodyl 10 mg Suppository 10 mg OH DAILY PRN (Reason: Constipation) RF: 0 atorvastatin 40 mg Tablet 40 mg PO QHS Qty: 30 RF: 0 polyethylene glycol 3350 17 gram Powder In Packet 17 g PO DAILY Qty: 0 RF: 0 nitroglycerin 0.4 mg Tablet, Sublingual 0.4 mg sublingual Q5M PRN (Reason: CHEST PAIN) Qty: 30 RF: 0 Metamucil Fiber Singles 3.4 gram Powder In Packet 1 packet PO TID Qty: 0 RF: 0 aspirin 81 MG tablet,delayed release (DR/EC) 81 mg PO 1200 Qty: 30 RF: 0 temazepam 30 mg Capsule 30 mg PO QHS PRN (Reason: Sleep) Qty: 0 RF: 0 nicotine 21 mg/24 hr patch 24 hour 1 patch TOPICAL DAILY Qty: 30 RF: 0 midodrine 10 mg tablet 10 mg PO TID Qty: 90 RF: 0 magnesium hydroxide [Milk of Magnesia] 400 mg/5 mL suspension 5 ml PO DAILY PRN (Reason: constipation) Qty: 150 RF: 0 docusate sodium [Colace] 100 mg capsule 100 mg PO DAILY Qty: 10 RF: 0 hydrocortisone [Procto-Med HC] 2.5 % cream with perineal applicator 1 applic OH DAILY PRN (Reason: hemorrhoids) Qty: 30 RF: 0 Referrals / Follow Up: Patel Veliz Chi, MD [Primary Care Provider] - Within 2 Weeks Disposition Disposition (needs filled in before D/C Order can be placed): [facility] Facility
--- NOTE | 2021-03-24 14:27 | TREXTCAR_ITS ---
Documented by User: Rolando MARTINEZ 03/24/21 14:28 Diet 03/24/21 00:18 Diet: Cardiac - Heart Healthy Food consistency:: Regular Liquid Consistency:: Regular/Thin Therapies Weight Bearing: Weight bearing as tolerated Physical Therapy: Eval and Treat Occupational Therapy: Eval and Treat Speech Therapy: Eval and Treat Problem/Diagnosis (1) COPD exacerbation: Status: Chronic (2) Physical debility: Status: Chronic Allergies/Procedures Done in Hospital Allergies codeine Allergy (Mild, Verified 03/23/21 20:02) HIVES Penicillins Allergy (Verified 03/23/21 20:02) Anaphylaxis Type of Care/Length of Stay Estimated LOS: Convalescent Care Less Than 30 days Type of Care Needed: Skilled Rehab Potential: Good Prognosis: Good Additional Orders/Day of Discharge Day of Discharge: 03/24/21 Discharge Plan Admission Admit Date/Time: 03/23/21 23:40 Primary Reason for Your Visit: Chest pain & Shortness of breath Attending Provider: Silva Greene Primary Care Provider: Patel Veliz Chi Discharge Orders/Prescriptions Prescriptions: New prednisone 20 mg tablet 40 mg PO DAILY Qty: 10 RF: 0 Continued Myrbetriq 25 mg tablet extended release 24 hr 25 mg PO BID RF: 0 omeprazole 20 mg capsule,delayed release(DR/EC) 20 mg PO DAILY RF: 0 sennosides-docusate sodium [Senexon-S] 8.6-50 mg tablet 2 tab PO BID RF: 0 calcium carbonate [Oyster Shell Calcium] 500 mg calcium (1,250 mg) tablet 500 mg PO BID RF: 0 fluticasone furoate-vilanterol 100-25 mcg/dose blister with device 2 puff INHALATION DAILY RF: 0 albuterol sulfate [Ventolin HFA] 90 mcg/actuation HFA aerosol inhaler 1 inh INHALATION BID PRN PRN (Reason: COPD) RF: 0 brimonidine 0.15 % drops 1 drp OPHTHALMIC BID RF: 0 benztropine 2 mg tablet 2 mg PO BID Qty: 60 RF: 3 oxcarbazepine 600 mg tablet 600 mg PO BID Qty: 60 RF: 3 phenobarbital 32.4 mg tablet 32.4 mg PO BID Qty: 60 RF: 3 potassium chloride 20 MEQ tablet 20 meq PO BID RF: 0 levothyroxine 50 MCG tablet 50 mcg PO DAILY RF: 0 duloxetine 20 MG capsule,delayed release(DR/EC) 20 mg PO DAILY RF: 0 mirtazapine 7.5 mg tablet 7.5 mg PO QHS RF: 0 ropinirole 2 MG tablet 2 mg PO QHS RF: 0 acetaminophen 325 MG tablet 650 mg PO Q6H PRN PRN (Reason: Pain Score 1-10/Temp > 100.7 F) RF: 0 multivitamin Tablet 1 tab PO 1200 RF: 0 cholecalciferol (vitamin D3) 1,250 mcg (50,000 unit) capsule 1,250 mcg PO WE RF: 0 methadone 10 mg tablet 10 mg PO TID 5 Days Qty: 15 RF: 0 ferrous sulfate [FeroSul] 325 mg (65 mg iron) Tablet 325 mg PO 1200,1700 Qty: 60 RF: 1 ondansetron 4 mg Tablet,Disintegrating 4 mg PO Q6H PRN (Reason: Nausea) RF: 0 loperamide [Imodium A-D] 2 mg Tablet 2 mg PO Q6H PRN (Reason: Diarrhea) RF: 0 mineral oil Enema 118 ml NE DAILY PRN (Reason: Constipation) RF: 0 bisacodyl 10 mg Suppository 10 mg NE DAILY PRN (Reason: Constipation) RF: 0 atorvastatin 40 mg Tablet 40 mg PO QHS Qty: 30 RF: 0 polyethylene glycol 3350 17 gram Powder In Packet 17 g PO DAILY Qty: 0 RF: 0 nitroglycerin 0.4 mg Tablet, Sublingual 0.4 mg sublingual Q5M PRN (Reason: CHEST PAIN) Qty: 30 RF: 0 Metamucil Fiber Singles 3.4 gram Powder In Packet 1 packet PO TID Qty: 0 RF: 0 aspirin 81 MG tablet,delayed release (DR/EC) 81 mg PO 1200 Qty: 30 RF: 0 temazepam 30 mg Capsule 30 mg PO QHS PRN (Reason: Sleep) Qty: 0 RF: 0 nicotine 21 mg/24 hr patch 24 hour 1 patch TOPICAL DAILY Qty: 30 RF: 0 midodrine 10 mg tablet 10 mg PO TID Qty: 90 RF: 0 magnesium hydroxide [Milk of Magnesia] 400 mg/5 mL suspension 5 ml PO DAILY PRN (Reason: constipation) Qty: 150 RF: 0 docusate sodium [Colace] 100 mg capsule 100 mg PO DAILY Qty: 10 RF: 0 hydrocortisone [Procto-Med HC] 2.5 % cream with perineal applicator 1 applic NE DAILY PRN (Reason: hemorrhoids) Qty: 30 RF: 0 Referrals / Follow Up: Patel Veliz Chi, MD [Primary Care Provider] - Within 2 Weeks Disposition Disposition (needs filled in before D/C Order can be placed): [facility] Documented by User: Dr. Silva Greene MD 03/24/21 14:57 Allergies/Procedures Done in Hospital Allergies codeine Allergy (Mild, Verified 03/23/21 20:02) HIVES Penicillins Allergy (Verified 03/23/21 20:02) Anaphylaxis Discharge Plan Admission Admit Date/Time: 03/23/21 23:40 Primary Reason for Your Visit: Chest pain & Shortness of breath Attending Provider: Silva Greene Primary Care Provider: Patel Veliz Chi Discharge Orders/Prescriptions Prescriptions: New prednisone 20 mg tablet 40 mg PO DAILY Qty: 10 RF: 0 Continued Myrbetriq 25 mg tablet extended release 24 hr 25 mg PO BID RF: 0 omeprazole 20 mg capsule,delayed release(DR/EC) 20 mg PO DAILY RF: 0 sennosides-docusate sodium [Senexon-S] 8.6-50 mg tablet 2 tab PO BID RF: 0 calcium carbonate [Oyster Shell Calcium] 500 mg calcium (1,250 mg) tablet 500 mg PO BID RF: 0 fluticasone furoate-vilanterol 100-25 mcg/dose blister with device 2 puff INHALATION DAILY RF: 0 albuterol sulfate [Ventolin HFA] 90 mcg/actuation HFA aerosol inhaler 1 inh INHALATION BID PRN PRN (Reason: COPD) RF: 0 brimonidine 0.15 % drops 1 drp OPHTHALMIC BID RF: 0 benztropine 2 mg tablet 2 mg PO BID Qty: 60 RF: 3 oxcarbazepine 600 mg tablet 600 mg PO BID Qty: 60 RF: 3 phenobarbital 32.4 mg tablet 32.4 mg PO BID Qty: 60 RF: 3 potassium chloride 20 MEQ tablet 20 meq PO BID RF: 0 levothyroxine 50 MCG tablet 50 mcg PO DAILY RF: 0 duloxetine 20 MG capsule,delayed release(DR/EC) 20 mg PO DAILY RF: 0 mirtazapine 7.5 mg tablet 7.5 mg PO QHS RF: 0 ropinirole 2 MG tablet 2 mg PO QHS RF: 0 acetaminophen 325 MG tablet 650 mg PO Q6H PRN PRN (Reason: Pain Score 1-10/Temp > 100.7 F) RF: 0 multivitamin Tablet 1 tab PO 1200 RF: 0 cholecalciferol (vitamin D3) 1,250 mcg (50,000 unit) capsule 1,250 mcg PO WE RF: 0 methadone 10 mg tablet 10 mg PO TID 5 Days Qty: 15 RF: 0 ferrous sulfate [FeroSul] 325 mg (65 mg iron) Tablet 325 mg PO 1200,1700 Qty: 60 RF: 1 ondansetron 4 mg Tablet,Disintegrating 4 mg PO Q6H PRN (Reason: Nausea) RF: 0 loperamide [Imodium A-D] 2 mg Tablet 2 mg PO Q6H PRN (Reason: Diarrhea) RF: 0 mineral oil Enema 118 ml NE DAILY PRN (Reason: Constipation) RF: 0 bisacodyl 10 mg Suppository 10 mg NE DAILY PRN (Reason: Constipation) RF: 0 atorvastatin 40 mg Tablet 40 mg PO QHS Qty: 30 RF: 0 polyethylene glycol 3350 17 gram Powder In Packet 17 g PO DAILY Qty: 0 RF: 0 nitroglycerin 0.4 mg Tablet, Sublingual 0.4 mg sublingual Q5M PRN (Reason: CHEST PAIN) Qty: 30 RF: 0 Metamucil Fiber Singles 3.4 gram Powder In Packet 1 packet PO TID Qty: 0 RF: 0 aspirin 81 MG tablet,delayed release (DR/EC) 81 mg PO 1200 Qty: 30 RF: 0 temazepam 30 mg Capsule 30 mg PO QHS PRN (Reason: Sleep) Qty: 0 RF: 0 nicotine 21 mg/24 hr patch 24 hour 1 patch TOPICAL DAILY Qty: 30 RF: 0 midodrine 10 mg tablet 10 mg PO TID Qty: 90 RF: 0 magnesium hydroxide [Milk of Magnesia] 400 mg/5 mL suspension 5 ml PO DAILY PRN (Reason: constipation) Qty: 150 RF: 0 docusate sodium [Colace] 100 mg capsule 100 mg PO DAILY Qty: 10 RF: 0 hydrocortisone [Procto-Med HC] 2.5 % cream with perineal applicator 1 applic NE DAILY PRN (Reason: hemorrhoids) Qty: 30 RF: 0 Referrals / Follow Up: Patel Veliz Chi, MD [Primary Care Provider] - Within 2 Weeks Disposition Disposition (needs filled in before D/C Order can be placed): [facility]
--- NOTE | 2021-03-24 14:28 | PCM.DC.SUM ---
Documented by User: Rolando MARTINEZ 03/24/21 14:35 Providers Date of Admission: 03/23/21 Primary Care Physician: Dr. Patel Veliz MD Reason For Visit: CHEST PAIN Diagnosis Discharge Diagnosis (1) COPD exacerbation: Status: Chronic Code(s): J44.1 - Chronic obstructive pulmonary disease with (acute) exacerbation (2) Physical debility: Status: Chronic Code(s): R53.81 - Other malaise Medications at Discharge Home Medications duloxetine 20 mg PO DAILY 01/07/19 levothyroxine 50 mcg PO DAILY 01/07/19 potassium chloride 20 meq PO BID 01/07/19 mirtazapine 7.5 mg tablet 7.5 mg PO QHS tablet 02/21/19 ropinirole 2 mg PO QHS 08/08/19 acetaminophen 650 mg PO Q6H PRN PRN tablet 08/11/19 albuterol sulfate 90 mcg/actuation aerosol inhaler 1 inh INHALATION BID PRN PRN 05/13/20 calcium carbonate 500 mg calcium (1,250 mg) tablet 500 mg PO BID 05/13/20 fluticasone furoate 100 mcg-vilanterol 25 mcg/dose inhalation powder 2 puff INHALATION DAILY 05/13/20 mirabegron 25 mg tablet,extended release 24 hr 25 mg PO BID tab 05/13/20 omeprazole 20 mg capsule,delayed release 20 mg PO DAILY cap 05/13/20 sennosides 8.6 mg-docusate sodium 50 mg tablet 2 tab PO BID 05/13/20 brimonidine 0.15 % eye drops 1 drp OPHTHALMIC BID 07/09/20 benztropine 2 mg tablet 2 mg PO BID #60 tab 10/13/20 oxcarbazepine 600 mg tablet 600 mg PO BID #60 tab 10/13/20 phenobarbital 32.4 mg tablet 32.4 mg PO BID #60 tab 10/13/20 cholecalciferol (vitamin D3) 1,250 mcg PO WE 10/20/20 multivitamin 1 tab PO 1200 10/20/20 methadone 10 mg PO TID 5 Days #15 tab 10/25/20 ferrous sulfate [FeroSul] 325 mg PO 1200,1700 #60 tab 12/03/20 ondansetron 4 mg PO Q6H PRN 01/10/21 bisacodyl 10 mg FL DAILY PRN 01/16/21 loperamide [Imodium A-D] 2 mg PO Q6H PRN 01/16/21 mineral oil 118 ml FL DAILY PRN 01/16/21 Metamucil Fiber Singles 1 packet PO TID #0 ea 01/21/21 aspirin 81 mg PO 1200 #30 tab 01/21/21 atorvastatin 40 mg PO QHS #30 tab 01/21/21 magnesium hydroxide [Milk of Magnesia] 5 ml PO DAILY PRN #150 ml 01/21/21 midodrine 10 mg PO TID #90 tab 01/21/21 nicotine 1 patch TOPICAL DAILY #30 ea 01/21/21 nitroglycerin 0.4 mg SUBLINGUAL Q5M PRN #30 tab 01/21/21 polyethylene glycol 3350 17 g PO DAILY #0 ea 01/21/21 temazepam 30 mg PO QHS PRN #0 cap 01/21/21 docusate sodium [Colace] 100 mg PO DAILY #10 cap 01/31/21 hydrocortisone [Procto-Med HC] 1 applic FL DAILY PRN #30 g 01/31/21 prednisone 40 mg PO DAILY #10 tab 03/24/21 Hospital Course Summary of Care Provided Minutes Spent on Discharge: 35 Hospital Course: Disposition: Patient to discharge to [facility]. 1) COPD exacerbation Resolved, currently satting 96% on 3 L via nasal cannula. Patient reports resolution of shortness of breath from admission. Prednisone burst initiated on discharge, patient is to continue with home COPD regimen. 2) chest pain Patient reports resolution of chest pain from mission. Vital signs stable throughout admission. High-sensitivity troponins not elevated. 3) physical debility/adult failure to thrive On admission, patient's family believe that patient was not being compliant with home medications, and believe this to be the cause of patient's current symptoms. Family requested that patient be placed into senior care care. Patient seen by Rolando Palencia PA-C, under the supervision of Dr. Greene. Physical Exam Narrative Patient is a 70-year-old female comfortably resting in bed, alert and orient x3. Patient reports resolution of chest pain or shortness of breath from admission. Denies development of any new symptoms overnight. Does not appear to be in acute distress. Const alert, oriented x3 and no apparent distress HEENT normocephalic, head/scalp atraumatic and hearing grossly normal bilaterally Eyes PERRL, EOMs intact bilaterally and conjunctivae normal Neck no lymphadenopathy, supple, no JVD and no carotid bruits Resp normal respiratory effort, no retractions, no use of accessory muscles and clear to auscultation bilaterally Cardio regular rate, regular rhythm, no murmurs and no JVD GI normal to inspection, nondistended, normoactive bowel sounds, soft to palpation and non-tender Extremity normal to inspection, full ROM and no clubbing, cyanosis or edema Skin no rashes or lesions noted, no wounds and skin turgor normal Neuro CN's II-XII intact bilaterally Psych affect normal Weight / BMI Weight Weight: 160 lb 0.889 oz Body Mass Index (BMI) 26.6 ABG / Lab / Microbiology Data Result Diagrams: 03/24/21 04:08 03/24/21 04:08 Laboratory: Laboratory Results - last 24 hr 03/23/21 20:12: WBC 11.0, RBC 4.27, Hgb 12.6, Hct 40.0, MCV 93.7, MCH 29.5, MCHC 31.5 L, RDW Std Deviation 47.1 H, RDW Coeff of Jordin 13.7, Plt Count 401, MPV 9.4, Immature Gran % (Auto) 0.400, Neut % (Auto) 61.3, Lymph % (Auto) 22.4, [place] % (Auto) 10.0, Eos % (Auto) 5.0, Baso % (Auto) 0.9, Absolute Neuts (auto) 6.8, Absolute Lymphs (auto) 2.46, Nucleated RBC % 0 03/23/21 20:12: Sodium 136, Potassium 3.4 L, Chloride 97 L, Carbon Dioxide 31.0, Anion Gap 8, BUN 6 L, Creatinine 0.50 L, Estim Creat Clear Calc 46.43, Est GFR (MDRD) Af Amer 154, Est GFR (MDRD) Non-Af 128, BUN/Creatinine Ratio 11.9, Glucose 190 H, Calcium 9.2, Troponin I High Sens 19 03/24/21 00:42: Troponin I High Sens 16 03/24/21 04:08: WBC 6.3, RBC 3.57 L, Hgb 10.8 L, Hct 33.4 L, MCV 93.6, MCH 30.3, MCHC 32.3, RDW Std Deviation 46.5 H, RDW Coeff of Jordin 13.6, Plt Count 272, MPV 8.7, Immature Gran % (Auto) 0.300, Neut % (Auto) 82.5 H, Lymph % (Auto) 15.0 L, [place] % (Auto) 1.6, Eos % (Auto) 0.0, Baso % (Auto) 0.6, Absolute Neuts (auto) 5.2, Absolute Lymphs (auto) 0.95, Nucleated RBC % 0 03/24/21 04:08: Sodium 136, Potassium 3.6, Chloride 100, Carbon Dioxide 28.0, Anion Gap 8, BUN 7, Creatinine 0.30 L, Estim Creat Clear Calc 46.43, Est GFR (MDRD) Af Amer 281, Est GFR (MDRD) Non-Af 232, BUN/Creatinine Ratio 23.3 H, Glucose 160 H, Calcium 8.3 L, Phosphorus 3.7, Magnesium 2.1, Troponin I High Sens 15, TSH 0.24 L Microbiology: Microbiology 03/23/21 21:45 Nasal Secretion SARS-CoV-2 Antigen (Rapid) - Final ABG: ABG 03/23/21 21:58 Specimen Type ART Sample Site L Radial pH 7.44 Bicarbonate Actual 28.0 H Total CO2 29 Base Excess 4 H O2 Saturation 97 O2 % 30 ABG pCO2 41.1 ABG pO2 87 Romario Test Positive Respiration Rate 12 O2 Delivery Device BiPAP Clinical Comments BiPAP 14/6 12f 30% Radiography Diagnostic Testing: Radiology Impression Chest X-Ray 03/23/21 20:19 IMPRESSION: There are no acute findings. Electronically Signed: Rocco Christiansen MD at 20:42 EDT , Service support , Meaningful Use Info Meaningful Use Diagnoses (Choose all that apply): None applicable Discharge Plan Admission Admit Date/Time: 03/23/21 23:40 Primary Reason for Your Visit: Chest pain & Shortness of breath Attending Provider: Silva Greene Primary Care Provider: Patel Veliz Chi Discharge Orders/Prescriptions Prescriptions: New prednisone 20 mg tablet 40 mg PO DAILY Qty: 10 RF: 0 Continued Myrbetriq 25 mg tablet extended release 24 hr 25 mg PO BID RF: 0 omeprazole 20 mg capsule,delayed release(DR/EC) 20 mg PO DAILY RF: 0 sennosides-docusate sodium [Senexon-S] 8.6-50 mg tablet 2 tab PO BID RF: 0 calcium carbonate [Oyster Shell Calcium] 500 mg calcium (1,250 mg) tablet 500 mg PO BID RF: 0 fluticasone furoate-vilanterol 100-25 mcg/dose blister with device 2 puff INHALATION DAILY RF: 0 albuterol sulfate [Ventolin HFA] 90 mcg/actuation HFA aerosol inhaler 1 inh INHALATION BID PRN PRN (Reason: COPD) RF: 0 brimonidine 0.15 % drops 1 drp OPHTHALMIC BID RF: 0 benztropine 2 mg tablet 2 mg PO BID Qty: 60 RF: 3 oxcarbazepine 600 mg tablet 600 mg PO BID Qty: 60 RF: 3 phenobarbital 32.4 mg tablet 32.4 mg PO BID Qty: 60 RF: 3 potassium chloride 20 MEQ tablet 20 meq PO BID RF: 0 levothyroxine 50 MCG tablet 50 mcg PO DAILY RF: 0 duloxetine 20 MG capsule,delayed release(DR/EC) 20 mg PO DAILY RF: 0 mirtazapine 7.5 mg tablet 7.5 mg PO QHS RF: 0 ropinirole 2 MG tablet 2 mg PO QHS RF: 0 acetaminophen 325 MG tablet 650 mg PO Q6H PRN PRN (Reason: Pain Score 1-10/Temp > 100.7 F) RF: 0 multivitamin Tablet 1 tab PO 1200 RF: 0 cholecalciferol (vitamin D3) 1,250 mcg (50,000 unit) capsule 1,250 mcg PO WE RF: 0 methadone 10 mg tablet 10 mg PO TID 5 Days Qty: 15 RF: 0 ferrous sulfate [FeroSul] 325 mg (65 mg iron) Tablet 325 mg PO 1200,1700 Qty: 60 RF: 1 ondansetron 4 mg Tablet,Disintegrating 4 mg PO Q6H PRN (Reason: Nausea) RF: 0 loperamide [Imodium A-D] 2 mg Tablet 2 mg PO Q6H PRN (Reason: Diarrhea) RF: 0 mineral oil Enema 118 ml FL DAILY PRN (Reason: Constipation) RF: 0 bisacodyl 10 mg Suppository 10 mg FL DAILY PRN (Reason: Constipation) RF: 0 atorvastatin 40 mg Tablet 40 mg PO QHS Qty: 30 RF: 0 polyethylene glycol 3350 17 gram Powder In Packet 17 g PO DAILY Qty: 0 RF: 0 nitroglycerin 0.4 mg Tablet, Sublingual 0.4 mg sublingual Q5M PRN (Reason: CHEST PAIN) Qty: 30 RF: 0 Metamucil Fiber Singles 3.4 gram Powder In Packet 1 packet PO TID Qty: 0 RF: 0 aspirin 81 MG tablet,delayed release (DR/EC) 81 mg PO 1200 Qty: 30 RF: 0 temazepam 30 mg Capsule 30 mg PO QHS PRN (Reason: Sleep) Qty: 0 RF: 0 nicotine 21 mg/24 hr patch 24 hour 1 patch TOPICAL DAILY Qty: 30 RF: 0 midodrine 10 mg tablet 10 mg PO TID Qty: 90 RF: 0 magnesium hydroxide [Milk of Magnesia] 400 mg/5 mL suspension 5 ml PO DAILY PRN (Reason: constipation) Qty: 150 RF: 0 docusate sodium [Colace] 100 mg capsule 100 mg PO DAILY Qty: 10 RF: 0 hydrocortisone [Procto-Med HC] 2.5 % cream with perineal applicator 1 applic FL DAILY PRN (Reason: hemorrhoids) Qty: 30 RF: 0 Referrals / Follow Up: Patel Veliz Chi, MD [Primary Care Provider] - Within 2 Weeks Disposition Disposition (needs filled in before D/C Order can be placed): Senior Care Facility Documented by User: Dr. Silva Greene MD 03/24/21 15:10 Providers Date of Admission: 03/23/21 Reason For Visit: CHEST PAIN Medications at Discharge Home Medications duloxetine 20 mg PO DAILY 01/07/19 levothyroxine 50 mcg PO DAILY 01/07/19 potassium chloride 20 meq PO BID 01/07/19 mirtazapine 7.5 mg tablet 7.5 mg PO QHS tablet 02/21/19 ropinirole 2 mg PO QHS 08/08/19 acetaminophen 650 mg PO Q6H PRN PRN tablet 08/11/19 albuterol sulfate 90 mcg/actuation aerosol inhaler 1 inh INHALATION BID PRN PRN 05/13/20 calcium carbonate 500 mg calcium (1,250 mg) tablet 500 mg PO BID 05/13/20 fluticasone furoate 100 mcg-vilanterol 25 mcg/dose inhalation powder 2 puff INHALATION DAILY 05/13/20 mirabegron 25 mg tablet,extended release 24 hr 25 mg PO BID tab 05/13/20 omeprazole 20 mg capsule,delayed release 20 mg PO DAILY cap 05/13/20 sennosides 8.6 mg-docusate sodium 50 mg tablet 2 tab PO BID 05/13/20 brimonidine 0.15 % eye drops 1 drp OPHTHALMIC BID 07/09/20 benztropine 2 mg tablet 2 mg PO BID #60 tab 10/13/20 oxcarbazepine 600 mg tablet 600 mg PO BID #60 tab 10/13/20 phenobarbital 32.4 mg tablet 32.4 mg PO BID #60 tab 10/13/20 cholecalciferol (vitamin D3) 1,250 mcg PO WE 10/20/20 multivitamin 1 tab PO 1200 10/20/20 methadone 10 mg PO TID 5 Days #15 tab 10/25/20 ferrous sulfate [FeroSul] 325 mg PO 1200,1700 #60 tab 12/03/20 ondansetron 4 mg PO Q6H PRN 01/10/21 bisacodyl 10 mg FL DAILY PRN 01/16/21 loperamide [Imodium A-D] 2 mg PO Q6H PRN 01/16/21 mineral oil 118 ml FL DAILY PRN 01/16/21 Metamucil Fiber Singles 1 packet PO TID #0 ea 01/21/21 aspirin 81 mg PO 1200 #30 tab 01/21/21 atorvastatin 40 mg PO QHS #30 tab 01/21/21 magnesium hydroxide [Milk of Magnesia] 5 ml PO DAILY PRN #150 ml 01/21/21 midodrine 10 mg PO TID #90 tab 01/21/21 nicotine 1 patch TOPICAL DAILY #30 ea 01/21/21 nitroglycerin 0.4 mg SUBLINGUAL Q5M PRN #30 tab 01/21/21 polyethylene glycol 3350 17 g PO DAILY #0 ea 01/21/21 temazepam 30 mg PO QHS PRN #0 cap 01/21/21 docusate sodium [Colace] 100 mg PO DAILY #10 cap 01/31/21 hydrocortisone [Procto-Med HC] 1 applic FL DAILY PRN #30 g 01/31/21 prednisone 40 mg PO DAILY #10 tab 03/24/21 ABG / Lab / Microbiology Data Result Diagrams: 03/24/21 04:08 03/24/21 04:08 Discharge Plan Admission Admit Date/Time: 03/23/21 23:40 Primary Reason for Your Visit: Chest pain & Shortness of breath Attending Provider: Silva Greene Primary Care Provider: Patel Veliz Chi Discharge Orders/Prescriptions Prescriptions: New prednisone 20 mg tablet 40 mg PO DAILY Qty: 10 RF: 0 Continued Myrbetriq 25 mg tablet extended release 24 hr 25 mg PO BID RF: 0 omeprazole 20 mg capsule,delayed release(DR/EC) 20 mg PO DAILY RF: 0 sennosides-docusate sodium [Senexon-S] 8.6-50 mg tablet 2 tab PO BID RF: 0 calcium carbonate [Oyster Shell Calcium] 500 mg calcium (1,250 mg) tablet 500 mg PO BID RF: 0 fluticasone furoate-vilanterol 100-25 mcg/dose blister with device 2 puff INHALATION DAILY RF: 0 albuterol sulfate [Ventolin HFA] 90 mcg/actuation HFA aerosol inhaler 1 inh INHALATION BID PRN PRN (Reason: COPD) RF: 0 brimonidine 0.15 % drops 1 drp OPHTHALMIC BID RF: 0 benztropine 2 mg tablet 2 mg PO BID Qty: 60 RF: 3 oxcarbazepine 600 mg tablet 600 mg PO BID Qty: 60 RF: 3 phenobarbital 32.4 mg tablet 32.4 mg PO BID Qty: 60 RF: 3 potassium chloride 20 MEQ tablet 20 meq PO BID RF: 0 levothyroxine 50 MCG tablet 50 mcg PO DAILY RF: 0 duloxetine 20 MG capsule,delayed release(DR/EC) 20 mg PO DAILY RF: 0 mirtazapine 7.5 mg tablet 7.5 mg PO QHS RF: 0 ropinirole 2 MG tablet 2 mg PO QHS RF: 0 acetaminophen 325 MG tablet 650 mg PO Q6H PRN PRN (Reason: Pain Score 1-10/Temp > 100.7 F) RF: 0 multivitamin Tablet 1 tab PO 1200 RF: 0 cholecalciferol (vitamin D3) 1,250 mcg (50,000 unit) capsule 1,250 mcg PO WE RF: 0 methadone 10 mg tablet 10 mg PO TID 5 Days Qty: 15 RF: 0 ferrous sulfate [FeroSul] 325 mg (65 mg iron) Tablet 325 mg PO 1200,1700 Qty: 60 RF: 1 ondansetron 4 mg Tablet,Disintegrating 4 mg PO Q6H PRN (Reason: Nausea) RF: 0 loperamide [Imodium A-D] 2 mg Tablet 2 mg PO Q6H PRN (Reason: Diarrhea) RF: 0 mineral oil Enema 118 ml FL DAILY PRN (Reason: Constipation) RF: 0 bisacodyl 10 mg Suppository 10 mg FL DAILY PRN (Reason: Constipation) RF: 0 atorvastatin 40 mg Tablet 40 mg PO QHS Qty: 30 RF: 0 polyethylene glycol 3350 17 gram Powder In Packet 17 g PO DAILY Qty: 0 RF: 0 nitroglycerin 0.4 mg Tablet, Sublingual 0.4 mg sublingual Q5M PRN (Reason: CHEST PAIN) Qty: 30 RF: 0 Metamucil Fiber Singles 3.4 gram Powder In Packet 1 packet PO TID Qty: 0 RF: 0 aspirin 81 MG tablet,delayed release (DR/EC) 81 mg PO 1200 Qty: 30 RF: 0 temazepam 30 mg Capsule 30 mg PO QHS PRN (Reason: Sleep) Qty: 0 RF: 0 nicotine 21 mg/24 hr patch 24 hour 1 patch TOPICAL DAILY Qty: 30 RF: 0 midodrine 10 mg tablet 10 mg PO TID Qty: 90 RF: 0 magnesium hydroxide [Milk of Magnesia] 400 mg/5 mL suspension 5 ml PO DAILY PRN (Reason: constipation) Qty: 150 RF: 0 docusate sodium [Colace] 100 mg capsule 100 mg PO DAILY Qty: 10 RF: 0 hydrocortisone [Procto-Med HC] 2.5 % cream with perineal applicator 1 applic FL DAILY PRN (Reason: hemorrhoids) Qty: 30 RF: 0 Referrals / Follow Up: Patel Veliz Chi, MD [Primary Care Provider] - Within 2 Weeks Disposition Disposition (needs filled in before D/C Order can be placed): Senior Care Facility Charges/Coding Addendum Addendum: Patient seen by Rolando Palencia PA-C under my supervision. Patient is a 70-year-old female with an extensive past medical history as outlined was admitted through the ED on 03/23/2021 with a complaint of chest pain and shortness of breath. Patient has been in and out of the hospital multiple times over the past few months for similar complaints and she just left [facility] 2 days prior to this admission after she had an extended stay there. Family was concerned so not been taking or medications as prescribed. She denied any palpitations, dizziness, cough, nausea vomiting or diarrhea. Review of systems otherwise negative. She was admitted and managed for acute COPD exacerbation. Patient symptoms resolved with breathing treatments and felt much better. Family requested the patient be placed at the [facility]. She was put on breathing treatment with bronchodilators IV Solu-Medrol. Patient had recently had a cath done on 01/16/2021 which showed EF 35 to 40% and hypokinetic left ventricle consistent with Takotsubo cardiomyopathy. Troponins x3 were not elevated during this admission. Patient felt much better and was accepted at the [facility]. She was discharged on 03/24/2021 is follow-up with her primary care doctor in 1 to 2 weeks. In light of patient's very frequent admissions, will be beneficial for patient to go up with palliative and hospice care on outpatient basis. Patient seen and examined prior to discharge. She had no complaints and felt well. Review of systems otherwise negative. Labs and vitals reviewed. Home medication reviewed and reconciled. O/E: Const alert, oriented x3 and no apparent distress HEENT normocephalic, head/scalp atraumatic and hearing grossly normal bilaterally Eyes PERRL, EOMs intact bilaterally and conjunctivae normal Neck no lymphadenopathy, supple, no JVD and no carotid bruits Resp normal respiratory effort, no retractions, no use of accessory muscles and clear to auscultation bilaterally Cardio regular rate, regular rhythm, no murmurs and no JVD GI normal to inspection, nondistended, normoactive bowel sounds, soft to palpation and non-tender Extremity normal to inspection, full ROM and no clubbing, cyanosis or edema Skin no rashes or lesions noted, no wounds and skin turgor normal Neuro CN's II-XII intact bilaterally Psych affect normal Plan is for discharge to SNF today. Rest as per Rolando Palencia PA-c's note, which I have reviewed and endorsed. Visit Charges OBSV E&M: 32834 Initial observation care L2
--- NOTE | 2021-03-24 14:37 | CASEMGMT ---
ERIC BELLE Care Coordination: This RN CM contacted Anamaria, Guinea Pig Breeder and Kaylyn, Baggage Screener from [facility] regarding circumstances of discharge from [facility] for transitions of care coordination. Per Anamaria and Kaylyn, the [facility] was received after business hours on Tuesday. The [facility] was reviewed with the patient by Anamaria and the pt stated she did not want to appeal her discharge. Pt's son in law Samson was contacted and a message was left. Pt's last covered day was to be on Tuesday, 03/22 with financial responsibility on patient as of 03/23. Pt's family chose to corn picker patient on Tuesday as this was convenient to their schedules. [facility]'s discharge planning staff were not available until Tuesday to facilitate discharge plans which were to include resumption of [facility] services and skilled home PT/OT services through [facility]. Messages from [facility] were not received to help facilitate placement from pt's home. Kaylyn and Anamaria are available if their assistance is needed going forward. Mariama Meadwos RN CM
--- NOTE | 2021-03-24 14:52 | PHA.DC.MR ---
Pharmacy Service has performed discharge medication reconciliation for this patient. The patient's discharge medication list was reviewed for discrepancies and discrepancies were resolved. Home Medications duloxetine 20 mg PO DAILY 01/07/19 levothyroxine 50 mcg PO DAILY 01/07/19 potassium chloride 20 meq PO BID 01/07/19 mirtazapine 7.5 mg tablet 7.5 mg PO QHS tablet 02/21/19 ropinirole 2 mg PO QHS 08/08/19 acetaminophen 650 mg PO Q6H PRN PRN tablet 08/11/19 albuterol sulfate 90 mcg/actuation aerosol inhaler 1 inh INHALATION BID PRN PRN 05/13/20 calcium carbonate 500 mg calcium (1,250 mg) tablet 500 mg PO BID 05/13/20 fluticasone furoate 100 mcg-vilanterol 25 mcg/dose inhalation powder 2 puff INHALATION DAILY 05/13/20 mirabegron 25 mg tablet,extended release 24 hr 25 mg PO BID tab 05/13/20 omeprazole 20 mg capsule,delayed release 20 mg PO DAILY cap 05/13/20 sennosides 8.6 mg-docusate sodium 50 mg tablet 2 tab PO BID 05/13/20 brimonidine 0.15 % eye drops 1 drp OPHTHALMIC BID 07/09/20 benztropine 2 mg tablet 2 mg PO BID #60 tab 10/13/20 oxcarbazepine 600 mg tablet 600 mg PO BID #60 tab 10/13/20 phenobarbital 32.4 mg tablet 32.4 mg PO BID #60 tab 10/13/20 cholecalciferol (vitamin D3) 1,250 mcg PO WE 10/20/20 multivitamin 1 tab PO 1200 10/20/20 methadone 10 mg PO TID 5 Days #15 tab 10/25/20 ferrous sulfate [FeroSul] 325 mg PO 1200,1700 #60 tab 12/03/20 ondansetron 4 mg PO Q6H PRN 01/10/[address] DAILY PRN 01/16/21 loperamide [Imodium A-D] 2 mg PO Q6H PRN 01/16/[address] DAILY PRN 01/16/21 Metamucil Fiber Singles 1 packet PO TID #0 ea 01/21/21 aspirin 81 mg PO 1200 #30 tab 01/21/21 atorvastatin 40 mg PO QHS #30 tab 01/21/21 magnesium hydroxide [Milk of Magnesia] 5 ml PO DAILY PRN #150 ml 01/21/21 midodrine 10 mg PO TID #90 tab 01/21/21 nicotine 1 patch TOPICAL DAILY #30 ea 01/21/21 nitroglycerin 0.4 mg SUBLINGUAL Q5M PRN #30 tab 01/21/21 polyethylene glycol 3350 17 g PO DAILY #0 ea 01/21/21 temazepam 30 mg PO QHS PRN #0 cap 01/21/21 docusate sodium [Colace] 100 mg PO DAILY #10 cap 01/31/21 hydrocortisone [Procto-Med HC] [address] DAILY PRN #30 g 01/31/21 prednisone 40 mg PO DAILY #10 tab 03/24/21
--- NOTE | 2021-03-24 15:12 | CASEMGMT ---
Received orders. GRAHAM faxed orders to [facility] and Beata Chen at [facility]. GRAHAM also did fax the rule out letter from [employer]. GRAHAM arranged for patient to get picked up at 1630 via wc van. GRAHAM notified RN and litigation secretary. GRAHAM also left a message for patient's son Yaakov and her son in law Samson. GRAHAM went to notify patient, but she was sleeping and RN asked that SW let her sleep. GRAHAM spoke with Yana at [facility] and she is aware of warp picker. All in agreement with plan. Plan: d/c to [facility] under intermediate level of care on a PASRR as she is observation status in the hospital. [facility] transported via wheelchair van at 1630. Michela CARTER
--- NOTE | 2021-03-24 15:17 | NURSING ---
Report called to [facility] to nurse [place] for pt d/c to facility.
[2021-03-24 17:40] LABS: Hematocrit 38.5 % (37-47); Hemoglobin 12.6 g/dL (12.0-15.0)
--- NOTE | 2021-03-24 18:31 | NURSING ---
Attempted to call [facility] to provide and update but placed on hold and unable to get through to nurse.
--- NOTE | 2021-03-24 19:32 | NURSING ---
Pt's son Yaakov updated to pt status and pt d/c has been canceled.
--- NOTE | 2021-03-24 19:38 | NURSING ---
spoke to Winsome at [facility] and updated her that pt had emesis occult positive so pt d/c was canceled. Report will be called again once pt is d/c to [facility].
[2021-03-24] MEDS: proCHLORPERazine 10 MG/2 ML Vial IV (19:48)
--- NOTE | 2021-03-24 21:21 | NURSING ---
Son in law Samson brought back pt belongings which include a basket filled with a brown purse, skin creams, shirt, socks, lip balm, notepad with pens, and a pill splitter. belongings placed in pt room.
[2021-03-24 22:09] LABS: Hematocrit 37.5 % (37-47); Hemoglobin 12.2 g/dL (12.0-15.0)
[2021-03-25] VITALS (7 sets, daily range): BP systolic 104–124; BP diastolic 61–77; PULSE 77–95; RESP 16–18; TEMP 36.9; O2SAT 94–97
[2021-03-25] MEDS: Midodrine HCl 5 MG Tablet 10 MG PO (05:22)
[2021-03-25] MEDS: Levothyroxine 50 MCG Tablet PO (05:22)
[2021-03-25] MEDS: 0.9% Saline Lock 10 ML Syringe IV (05:22)
[2021-03-25] MEDS: Methadone 10 MG Tablet PO (05:22)
[2021-03-25] MEDS: Psyllium 1 PACKET PO (05:23)
[2021-03-25 06:12] LABS: Absolute Lymphocyte Count 1.69 X10^3/uL (0.83-4.51); Absolute Neutrophil Count 6.2 X10^3/uL (2.0-7.7); Basophil# 0.02 X10^3/uL; Basophil% 0.2 % (0-1); Hematocrit 35.7 % (37-47); Hemoglobin 11.5 g/dL (12.0-15.0); Lymphocyte # 1.69 X10^3/ul (0.83-4.51); Lymphocyte % 19.7 % (19-41); Mean Corp Hgb Conc 32.2 g/dL (32-36); Mean Corpuscular Hgb 30.1 pg (27.0-32.0); Mean Corpuscular Volume 93.5 fL (81-99); Mean Platelet Vol. 8.8 fl (6.2-12.0); Monocyte# 0.69 X10^3/uL; NRBC Flagged by Analyzer 0 % (0-5); Neutrophil # 6.18 X10^3/uL (2.7-7.7); Neutrophil % 71.9 % (47-70); Platelet Count 320 K/mm3 (150-450); RBC Distribution Width CV 13.6 % (11.6-14.6); RBC Distribution Width SD 46.5 fl (35.1-43.9); Red Blood Count 3.82 M/mm3 (4.2-5.4); White Blood Count 8.6 K/mm3 (4.4-11.0)
[2021-03-25] MEDS: Albuterol 2.5 MG/3 ML VIAL.NEB. INHALATION (07:16)
[2021-03-25] MEDS: Pantoprazole Sodium 20 MG Tablet PO (08:56)
[2021-03-25] MEDS: Potassium Chloride Oral Tablet 20 MEQ PO (08:56)
[2021-03-25] MEDS: OXcarbazepine 600 MG Tablet PO (08:56)
[2021-03-25] MEDS: Mirabegron 25 MG TAB.ER.24H PO (08:57)
[2021-03-25] MEDS: Calcium (Elemental) 500 MG Tablet PO (08:57)
[2021-03-25] MEDS: DULoxetine Hcl 20 MG Capsule PO (08:57)
[2021-03-25] MEDS: Benztropine 2 MG Tablet PO (08:57)
[2021-03-25] MEDS: BRIMONIDINE 0.15% 5 ML Bottle 1 DRP OPHTHALMIC (08:58)
[2021-03-25] MEDS: Ergocalciferol 1.25 MG (50, 000 UNIT) Capsule PO (09:03)
[2021-03-25] MEDS: Phenobarbital 32.4 MG Tablet PO (09:07)
--- NOTE | 2021-03-25 10:05 | CASEMGMT ---
This RN CM to room with WILDE form, explanation done-pt voices understanding, and signs WILDE form. Original to chart and copy to pt. Pt is A/Ox4. Pt voices no further questions/concerns/needs. S[place]en ERIC CM
--- NOTE | 2021-03-25 10:27 | CASEMGMT ---
Patient is ready for discharge to [facility]. GRAHAM arranged for patient to get picked up at 1130 via wc van. GRAHAM notified patient, her son Yaakov, medical office secretary, and Yana at [facility]. GRAHAM also notified RN. All in agreement with d/c plan. Plan: d/c to [facility] under intermediate level of care on a PASRR as she was observation status in the hospital. Michela Rosas NEUROLOGY MANAGER [facility]
--- NOTE | 2021-03-25 13:25 | DS.PCM_ITS ---
Documented by User: Rolando MARTINEZ 03/25/21 13:40 Providers Date of Admission: 03/23/21 Primary Care Physician: Dr. Patel Veliz MD Reason For Visit: CHEST PAIN Diagnosis Discharge Diagnosis (1) COPD exacerbation: Status: Chronic Code(s): J44.1 - Chronic obstructive pulmonary disease with (acute) exacerbation (2) Physical debility: Status: Chronic Code(s): R53.81 - Other malaise Medications at Discharge Home Medications duloxetine 20 mg PO DAILY 01/07/19 levothyroxine 50 mcg PO DAILY 01/07/19 potassium chloride 20 meq PO BID 01/07/19 mirtazapine 7.5 mg tablet 7.5 mg PO QHS tablet 02/21/19 ropinirole 2 mg PO QHS 08/08/19 acetaminophen 650 mg PO Q6H PRN PRN tablet 08/11/19 albuterol sulfate 90 mcg/actuation aerosol inhaler 1 inh INHALATION BID PRN PRN 05/13/20 calcium carbonate 500 mg calcium (1,250 mg) tablet 500 mg PO BID 05/13/20 fluticasone furoate 100 mcg-vilanterol 25 mcg/dose inhalation powder 2 puff INHALATION DAILY 05/13/20 mirabegron 25 mg tablet,extended release 24 hr 25 mg PO BID tab 05/13/20 omeprazole 20 mg capsule,delayed release 20 mg PO DAILY cap 05/13/20 sennosides 8.6 mg-docusate sodium 50 mg tablet 2 tab PO BID 05/13/20 brimonidine 0.15 % eye drops 1 drp OPHTHALMIC BID 07/09/20 benztropine 2 mg tablet 2 mg PO BID #60 tab 10/13/20 oxcarbazepine 600 mg tablet 600 mg PO BID #60 tab 10/13/20 phenobarbital 32.4 mg tablet 32.4 mg PO BID #60 tab 10/13/20 cholecalciferol (vitamin D3) 1,250 mcg PO WE 10/20/20 multivitamin 1 tab PO 1200 10/20/20 methadone 10 mg PO TID 5 Days #15 tab 10/25/20 ferrous sulfate [FeroSul] 325 mg PO 1200,1700 #60 tab 12/03/20 ondansetron 4 mg PO Q6H PRN 01/10/21 bisacodyl 10 mg SD DAILY PRN 01/16/21 loperamide [Imodium A-D] 2 mg PO Q6H PRN 01/16/21 mineral oil 118 ml SD DAILY PRN 01/16/21 Metamucil Fiber Singles 1 packet PO TID #0 ea 01/21/21 aspirin 81 mg PO 1200 #30 tab 01/21/21 atorvastatin 40 mg PO QHS #30 tab 01/21/21 magnesium hydroxide [Milk of Magnesia] 5 ml PO DAILY PRN #150 ml 01/21/21 midodrine 10 mg PO TID #90 tab 01/21/21 nicotine 1 patch TOPICAL DAILY #30 ea 01/21/21 nitroglycerin 0.4 mg SUBLINGUAL Q5M PRN #30 tab 01/21/21 polyethylene glycol 3350 17 g PO DAILY #0 ea 01/21/21 temazepam 30 mg PO QHS PRN #0 cap 01/21/21 docusate sodium [Colace] 100 mg PO DAILY #10 cap 01/31/21 hydrocortisone [Procto-Med HC] 1 applic SD DAILY PRN #30 g 01/31/21 prednisone 40 mg PO DAILY #10 tab 03/24/21 Hospital Course Summary of Care Provided Minutes Spent on Discharge: 35 Hospital Course: Disposition: Patient to discharge to the [facility]. 1) COPD exacerbation Resolved, currently satting 96% on 3 L via nasal cannula. Patient reports resolution of shortness of breath from admission. Prednisone burst initiated on discharge, patient is to continue with home COPD regimen. 2) chest pain Patient reports resolution of chest pain from mission. Vital signs stable [facility] admission. High-sensitivity troponins not elevated. 3) physical debility/adult failure to thrive On admission, patient's family believe that patient was not being compliant with home medications, and believe this to be the cause of patient's current symptoms. Family requested that patient be placed into [facility] care. 4) hematemesis Patient demonstrated some hematemesis as she was getting ready for discharge on 03/24/2021. This is a chronic issue for this patient, for which she has not had investigated. GI physician was consulted, and agreed there was no further acute care to be done but would like to see as an outpatient. Patient was given IV Compazine which resolved her hematemesis. Outpatient referral for Dr. Lobato inserted into discharge instructions. PPI continued. Patient seen by Rolando Palencia PA-C, under the supervision of Dr. Greene. Physical Exam Narrative Patient is a 70-year-old female comfortably resting in bed, alert and orient x3. Hematemesis and chest pain have resolved, patient denies development of any new symptoms overnight. Does not appear to be in acute distress. Const alert, oriented x3 and no apparent distress HEENT normocephalic, head/scalp atraumatic and hearing grossly normal bilaterally Eyes PERRL, EOMs intact bilaterally and conjunctivae normal Neck no lymphadenopathy, supple and no JVD Resp normal respiratory effort, no retractions, no use of accessory muscles and clear to auscultation bilaterally Cardio regular rate, regular rhythm, no murmurs and no JVD GI normal to inspection, nondistended, normoactive bowel sounds, soft to palpation and non-tender Extremity normal to inspection, full ROM and no clubbing, cyanosis or edema Skin no rashes or lesions noted, no wounds and skin turgor normal Neuro CN's II-XII intact bilaterally Psych affect normal Weight / BMI Weight Weight: 160 lb 0.889 oz Body Mass Index (BMI) 26.6 ABG / Lab / Microbiology Data Result Diagrams: 03/25/21 05:52 03/24/21 04:08 Laboratory: Laboratory Results - last 24 hr 03/24/21 17:30: Hgb 12.6, Hct 38.5 03/24/21 21:40: Hgb 12.2, Hct 37.5 03/25/21 05:52: WBC 8.6, RBC 3.82 L, Hgb 11.5 L, Hct 35.7 L, MCV 93.5, MCH 30.1, MCHC 32.2, RDW Std Deviation 46.5 H, RDW Coeff of Jordin 13.6, Plt Count 320, MPV 8.8, Immature Gran % (Auto) 0.200, Neut % (Auto) 71.9 H, Lymph % (Auto) 19.7, [place] % (Auto) 8.0, Eos % (Auto) 0.0, Baso % (Auto) 0.2, Absolute Neuts (auto) 6.2, Absolute Lymphs (auto) 1.69, Nucleated RBC % 0 Microbiology: Microbiology 03/24/21 16:16 Vomitus Gastric Occult Blood - Final Occult Blood Positive 03/23/21 21:45 Nasal Secretion SARS-CoV-2 Antigen (Rapid) - Final Meaningful Use Info Meaningful Use Diagnoses (Choose all that apply): None applicable Discharge Plan Admission Admit Date/Time: 03/23/21 23:40 Primary Reason for Your Visit: Chest pain & Shortness of breath Attending Provider: Silva Greene Primary Care Provider: Patel Veliz Chi Discharge Orders/Prescriptions Prescriptions: New prednisone 20 mg tablet 40 mg PO DAILY Qty: 10 RF: 0 Continued Myrbetriq 25 mg tablet extended release 24 hr 25 mg PO BID RF: 0 omeprazole 20 mg capsule,delayed release(DR/EC) 20 mg PO DAILY RF: 0 sennosides-docusate sodium [Senexon-S] 8.6-50 mg tablet 2 tab PO BID RF: 0 calcium carbonate [Oyster Shell Calcium] 500 mg calcium (1,250 mg) tablet 500 mg PO BID RF: 0 fluticasone furoate-vilanterol 100-25 mcg/dose blister with device 2 puff INHALATION DAILY RF: 0 albuterol sulfate [Ventolin HFA] 90 mcg/actuation HFA aerosol inhaler 1 inh INHALATION BID PRN PRN (Reason: COPD) RF: 0 brimonidine 0.15 % drops 1 drp OPHTHALMIC BID RF: 0 benztropine 2 mg tablet 2 mg PO BID Qty: 60 RF: 3 oxcarbazepine 600 mg tablet 600 mg PO BID Qty: 60 RF: 3 phenobarbital 32.4 mg tablet 32.4 mg PO BID Qty: 60 RF: 3 potassium chloride 20 MEQ tablet 20 meq PO BID RF: 0 levothyroxine 50 MCG tablet 50 mcg PO DAILY RF: 0 duloxetine 20 MG capsule,delayed release(DR/EC) 20 mg PO DAILY RF: 0 mirtazapine 7.5 mg tablet 7.5 mg PO QHS RF: 0 ropinirole 2 MG tablet 2 mg PO QHS RF: 0 acetaminophen 325 MG tablet 650 mg PO Q6H PRN PRN (Reason: Pain Score 1-10/Temp > 100.7 F) RF: 0 multivitamin Tablet 1 tab PO 1200 RF: 0 cholecalciferol (vitamin D3) 1,250 mcg (50,000 unit) capsule 1,250 mcg PO WE RF: 0 methadone 10 mg tablet 10 mg PO TID 5 Days Qty: 15 RF: 0 ferrous sulfate [FeroSul] 325 mg (65 mg iron) Tablet 325 mg PO 1200,1700 Qty: 60 RF: 1 ondansetron 4 mg Tablet,Disintegrating 4 mg PO Q6H PRN (Reason: Nausea) RF: 0 loperamide [Imodium A-D] 2 mg Tablet 2 mg PO Q6H PRN (Reason: Diarrhea) RF: 0 mineral oil Enema 118 ml SD DAILY PRN (Reason: Constipation) RF: 0 bisacodyl 10 mg Suppository 10 mg SD DAILY PRN (Reason: Constipation) RF: 0 atorvastatin 40 mg Tablet 40 mg PO QHS Qty: 30 RF: 0 polyethylene glycol 3350 17 gram Powder In Packet 17 g PO DAILY Qty: 0 RF: 0 nitroglycerin 0.4 mg Tablet, Sublingual 0.4 mg sublingual Q5M PRN (Reason: CHEST PAIN) Qty: 30 RF: 0 Metamucil Fiber Singles 3.4 gram Powder In Packet 1 packet PO TID Qty: 0 RF: 0 aspirin 81 MG tablet,delayed release (DR/EC) 81 mg PO 1200 Qty: 30 RF: 0 temazepam 30 mg Capsule 30 mg PO QHS PRN (Reason: Sleep) Qty: 0 RF: 0 nicotine 21 mg/24 hr patch 24 hour 1 patch TOPICAL DAILY Qty: 30 RF: 0 midodrine 10 mg tablet 10 mg PO TID Qty: 90 RF: 0 magnesium hydroxide [Milk of Magnesia] 400 mg/5 mL suspension 5 ml PO DAILY PRN (Reason: constipation) Qty: 150 RF: 0 docusate sodium [Colace] 100 mg capsule 100 mg PO DAILY Qty: 10 RF: 0 hydrocortisone [Procto-Med HC] 2.5 % cream with perineal applicator 1 applic SD DAILY PRN (Reason: hemorrhoids) Qty: 30 RF: 0 Referrals / Follow Up: Jesus Lobato DO [STAFF PHYSICIAN] - Within 2 Weeks Patel Veliz Chi, MD [Primary Care Provider] - Within 2 Weeks Disposition Disposition (needs filled in before D/C Order can be placed): [facility] Facility Documented by User: Dr. Silva Greene MD 03/25/21 17:21 Providers Date of Admission: 03/23/21 Reason For Visit: CHEST PAIN Medications at Discharge Home Medications duloxetine 20 mg PO DAILY 01/07/19 levothyroxine 50 mcg PO DAILY 01/07/19 potassium chloride 20 meq PO BID 01/07/19 mirtazapine 7.5 mg tablet 7.5 mg PO QHS tablet 02/21/19 ropinirole 2 mg PO QHS 08/08/19 acetaminophen 650 mg PO Q6H PRN PRN tablet 08/11/19 albuterol sulfate 90 mcg/actuation aerosol inhaler 1 inh INHALATION BID PRN PRN 05/13/20 calcium carbonate 500 mg calcium (1,250 mg) tablet 500 mg PO BID 05/13/20 fluticasone furoate 100 mcg-vilanterol 25 mcg/dose inhalation powder 2 puff INHALATION DAILY 05/13/20 mirabegron 25 mg tablet,extended release 24 hr 25 mg PO BID tab 05/13/20 omeprazole 20 mg capsule,delayed release 20 mg PO DAILY cap 05/13/20 sennosides 8.6 mg-docusate sodium 50 mg tablet 2 tab PO BID 05/13/20 brimonidine 0.15 % eye drops 1 drp OPHTHALMIC BID 07/09/20 benztropine 2 mg tablet 2 mg PO BID #60 tab 10/13/20 oxcarbazepine 600 mg tablet 600 mg PO BID #60 tab 10/13/20 phenobarbital 32.4 mg tablet 32.4 mg PO BID #60 tab 10/13/20 cholecalciferol (vitamin D3) 1,250 mcg PO WE 10/20/20 multivitamin 1 tab PO 1200 10/20/20 methadone 10 mg PO TID 5 Days #15 tab 10/25/20 ferrous sulfate [FeroSul] 325 mg PO 1200,1700 #60 tab 12/03/20 ondansetron 4 mg PO Q6H PRN 01/10/21 bisacodyl 10 mg SD DAILY PRN 01/16/21 loperamide [Imodium A-D] 2 mg PO Q6H PRN 01/16/21 mineral oil 118 ml SD DAILY PRN 01/16/21 Metamucil Fiber Singles 1 packet PO TID #0 ea 01/21/21 aspirin 81 mg PO 1200 #30 tab 01/21/21 atorvastatin 40 mg PO QHS #30 tab 01/21/21 magnesium hydroxide [Milk of Magnesia] 5 ml PO DAILY PRN #150 ml 01/21/21 midodrine 10 mg PO TID #90 tab 01/21/21 nicotine 1 patch TOPICAL DAILY #30 ea 01/21/21 nitroglycerin 0.4 mg SUBLINGUAL Q5M PRN #30 tab 01/21/21 polyethylene glycol 3350 17 g PO DAILY #0 ea 01/21/21 temazepam 30 mg PO QHS PRN #0 cap 01/21/21 docusate sodium [Colace] 100 mg PO DAILY #10 cap 01/31/21 hydrocortisone [Procto-Med HC] 1 applic SD DAILY PRN #30 g 01/31/21 prednisone 40 mg PO DAILY #10 tab 03/24/21 ABG / Lab / Microbiology Data Result Diagrams: 03/25/21 05:52 03/24/21 04:08 Discharge Plan Admission Admit Date/Time: 03/23/21 23:40 Primary Reason for Your Visit: Chest pain & Shortness of breath Attending Provider: Silva Greene Primary Care Provider: Patel Veliz Chi Discharge Orders/Prescriptions Prescriptions: New prednisone 20 mg tablet 40 mg PO DAILY Qty: 10 RF: 0 Continued Myrbetriq 25 mg tablet extended release 24 hr 25 mg PO BID RF: 0 omeprazole 20 mg capsule,delayed release(DR/EC) 20 mg PO DAILY RF: 0 sennosides-docusate sodium [Senexon-S] 8.6-50 mg tablet 2 tab PO BID RF: 0 calcium carbonate [Oyster Shell Calcium] 500 mg calcium (1,250 mg) tablet 500 mg PO BID RF: 0 fluticasone furoate-vilanterol 100-25 mcg/dose blister with device 2 puff INHALATION DAILY RF: 0 albuterol sulfate [Ventolin HFA] 90 mcg/actuation HFA aerosol inhaler 1 inh INHALATION BID PRN PRN (Reason: COPD) RF: 0 brimonidine 0.15 % drops 1 drp OPHTHALMIC BID RF: 0 benztropine 2 mg tablet 2 mg PO BID Qty: 60 RF: 3 oxcarbazepine 600 mg tablet 600 mg PO BID Qty: 60 RF: 3 phenobarbital 32.4 mg tablet 32.4 mg PO BID Qty: 60 RF: 3 potassium chloride 20 MEQ tablet 20 meq PO BID RF: 0 levothyroxine 50 MCG tablet 50 mcg PO DAILY RF: 0 duloxetine 20 MG capsule,delayed release(DR/EC) 20 mg PO DAILY RF: 0 mirtazapine 7.5 mg tablet 7.5 mg PO QHS RF: 0 ropinirole 2 MG tablet 2 mg PO QHS RF: 0 acetaminophen 325 MG tablet 650 mg PO Q6H PRN PRN (Reason: Pain Score 1-10/Temp > 100.7 F) RF: 0 multivitamin Tablet 1 tab PO 1200 RF: 0 cholecalciferol (vitamin D3) 1,250 mcg (50,000 unit) capsule 1,250 mcg PO WE RF: 0 methadone 10 mg tablet 10 mg PO TID 5 Days Qty: 15 RF: 0 ferrous sulfate [FeroSul] 325 mg (65 mg iron) Tablet 325 mg PO 1200,1700 Qty: 60 RF: 1 ondansetron 4 mg Tablet,Disintegrating 4 mg PO Q6H PRN (Reason: Nausea) RF: 0 loperamide [Imodium A-D] 2 mg Tablet 2 mg PO Q6H PRN (Reason: Diarrhea) RF: 0 mineral oil Enema 118 ml SD DAILY PRN (Reason: Constipation) RF: 0 bisacodyl 10 mg Suppository 10 mg SD DAILY PRN (Reason: Constipation) RF: 0 atorvastatin 40 mg Tablet 40 mg PO QHS Qty: 30 RF: 0 polyethylene glycol 3350 17 gram Powder In Packet 17 g PO DAILY Qty: 0 RF: 0 nitroglycerin 0.4 mg Tablet, Sublingual 0.4 mg sublingual Q5M PRN (Reason: CHEST PAIN) Qty: 30 RF: 0 Metamucil Fiber Singles 3.4 gram Powder In Packet 1 packet PO TID Qty: 0 RF: 0 aspirin 81 MG tablet,delayed release (DR/EC) 81 mg PO 1200 Qty: 30 RF: 0 temazepam 30 mg Capsule 30 mg PO QHS PRN (Reason: Sleep) Qty: 0 RF: 0 nicotine 21 mg/24 hr patch 24 hour 1 patch TOPICAL DAILY Qty: 30 RF: 0 midodrine 10 mg tablet 10 mg PO TID Qty: 90 RF: 0 magnesium hydroxide [Milk of Magnesia] 400 mg/5 mL suspension 5 ml PO DAILY PRN (Reason: constipation) Qty: 150 RF: 0 docusate sodium [Colace] 100 mg capsule 100 mg PO DAILY Qty: 10 RF: 0 hydrocortisone [Procto-Med HC] 2.5 % cream with perineal applicator 1 applic SD DAILY PRN (Reason: hemorrhoids) Qty: 30 RF: 0 Referrals / Follow Up: Jesus Lobato DO [STAFF PHYSICIAN] - Within 2 Weeks Patel Veliz Chi, MD [Primary Care Provider] - Within 2 Weeks Disposition Disposition (needs filled in before D/C Order can be placed): [facility] Facility Charges/Coding Addendum Addendum: Patient seen by Rolando Palencia PA-C under my supervision Patient is a 70-year-old female with an extensive past medical history as outlined was admitted through the ED on 03/23/2021 with a complaint of chest pain and shortness of breath. Patient has been in and out of the hospital multiple times over the past few months for similar complaints and she just left [facility] 2 days prior to this admission after she had an extended stay there. Family was concerned so not been taking or medications as prescribed. She denied any palpitations, dizziness, cough, nausea vomiting or diarrhea. Review of systems otherwise negative. She was admitted and managed for acute COPD exacerbation. Patient symptoms resolved with breathing treatments and felt much better. Family requested the patient be placed at the [facility]. She was put on breathing treatment with bronchodilators IV Solu-Medrol. Patient had recently had a cath done on 01/16/2021 which showed EF 35 to 40% and hypokinetic left ventricle consistent with Takotsubo cardiomyopathy. Troponins x3 were not elevated during this admission. Patient felt much better and was accepted at the [facility]. Plan was to disch arge patient home on 03/24/2021. However on the evening of the proposed day of discharge, patient had an episode of hematemesis. Hemoglobin was stable at around her baseline. However she had another repeat episode of hematemesis so discharge was canceled. Patient remained stable hematemesis did not recur. Hemoglobin was 11.5 on 03/25/2021. This was discussed with gastroenterology and decision was for patient to follow-up with gastroenterology on outpatient basis. She was therefore discharged to her [facility] facility on 03/25/2021. Patient was seen and examined prior to discharge. She had no complaints and felt well. Hematemesis had not occurred overnight. Review of systems otherwise negative. Labs and vitals reviewed. Home medication reviewed and reconciled. O/E: Const alert, oriented x3 and no apparent distress HEENT normocephalic, head/scalp atraumatic and hearing grossly normal bilaterally Eyes PERRL, EOMs intact bilaterally and conjunctivae normal Neck no lymphadenopathy, supple, no JVD and no carotid bruits Resp normal respiratory effort, no retractions, no use of accessory muscles and clear to auscultation bilaterally Cardio regular rate, regular rhythm, no murmurs and no JVD GI normal to inspection, nondistended, normoactive bowel sounds, soft to palpation and non-tender Extremity normal to inspection, full ROM and no clubbing, cyanosis or edema Skin no rashes or lesions noted, no wounds and skin turgor normal Neuro CN's II-XII intact bilaterally Psych affect normal Plan is for discharge to SNF. Rest as per Rolando Palencia PA-C's note, which I have reviewed and endorsed. Visit Charges Inpatient E&M: 83191 Disch Hosp
--- NOTE | 2021-03-25 17:47 | PCM.PN.BLA ---
Progress Note Late entry note for 03/24/2021. Patient was seen and examined. Plan was to discharge her to a retirement on 03/24/2021. However prior to discharge, patient had a coffee-ground emesis x2. Discharge was therefore canceled. Patient was seen and examined on 03/24/2021. Please refer to discharge summary dated 03/24/2021 for physical examination and assessment and plan. Visit Charges Inpatient E&M: 35381 Subs Hosp L2
== END 2021-03-25 10:09 | disposition skilled nursing facility (03) ==
LOC: ED 23:42 → PCU 03-24 03:09
PROVIDERS: Nurse Practitioner Family; Admitting Provider Family Medicine; Emergency Provider Emergency Medicine; PCP Family Medicine Geriatric Medicine; Visit Provider Student in an Organized Health Care Education/Training Program
DX: J44.1 Chronic obstructive pulmonary disease with (acute) exacerbation (principal); R53.81 Other malaise; I25.2 Old myocardial infarction; G25.0 Essential tremor; M51.36 Other intervertebral disc degeneration, lumbar region; I10 Essential (primary) hypertension; E03.9 Hypothyroidism, unspecified; J96.11 Chronic respiratory failure with hypoxia; G47.33 Obstructive sleep apnea (adult) (pediatric); G40.909 Epilepsy, unspecified, not intractable, without status epilepticus; K92.0 Hematemesis; G62.9 Polyneuropathy, unspecified; E55.9 Vitamin D deficiency, unspecified; N39.3 Stress incontinence (female) (male); M48.061 Spinal stenosis, lumbar region without neurogenic claudication; F41.9 Anxiety disorder, unspecified; F32.9 Major depressive disorder, single episode, unspecified; Z99.81 Dependence on supplemental oxygen; Z79.899 Other long term (current) drug therapy; Z79.890 Hormone replacement therapy; Z79.51 Long term (current) use of inhaled steroids; Z86.718 Personal history of other venous thrombosis and embolism; Z87.891 Personal history of nicotine dependence; Z91.14 Patient's other noncompliance with medication regimen
CPT/HCPCS: 36415; 36600; 71045; 80048; 82271; 82803; 83735; 84100; 84443; 84484; 85014; 85018; 85025; 87426; 93005; 94002; 94640; 96372; 96374; 96375; 96376; 97162; 97166; 97530; 99218; 99251; 99285; 99406; A4216; G0378; G0463

== ENCOUNTER 2021-04-07 09:30 | Observation (INO) | payer MEDICARE, MEDICAID, SELFPAY ==
[2021-04-07 09:31] VITALS: BP 155/81; PULSE 93; RESP 22; TEMP 37; O2SAT 100; BMI 29.2
--- NOTE | 2021-04-07 09:50 | EKG12_ITS ---
Test Reason : Blood Pressure : / mmHG Vent. Rate : 094 BPM Atrial Rate : 094 BPM P-R Int : 168 ms QRS Dur : 100 ms QT Int : 348 ms P-R-T Axes : 055 009 032 degrees QTc Int : 435 ms Normal sinus rhythm Nonspecific T wave abnormality Abnormal ECG Confirmed by ROLAN LEACH, LEONELA ([id number]), photographic editor WESLY CASTAÑEDA ([id number]) on 04/08/2021 9:28:10 AM Referred By: YISSEL Confirmed By:LEONELA GONGORA MD
--- NOTE | 2021-04-07 09:50 | CT_ITS ---
STUDY: CT ABDOMEN AND PELVIS WITH CONTRAST REASON FOR EXAM: Female, 70 years old. Coffee-ground emesis. Upper abdominal pain. RADIATION DOSAGE (If Supplied By Facility): CTDIvol = ( 18.41 ) mGy, DLP = ( 1105.32 ) mGycm TECHNIQUE: Transaxial images were obtained from the dome of the diaphragm to the symphysis pubis without oral contrast. IV 100mL Isovue-300 was administered. Sagittal and coronal images were reconstructed. Individualized dose optimization techniques were used for this CT. COMPARISON: Comparison is made with prior study dated 01/10/2021. FINDINGS: Mild increased linear markings at the lung bases suggestive of scarring. The visualized portions of the heart are within normal limits. Mild degree of the dilated central intrahepatic biliary ducts. This is unchanged. There are surgical clips in the gallbladder fossa consistent with a prior cholecystectomy. Normal spleen. There is diffuse atrophy of the pancreas. There is a small, circumscribed, smooth, low attenuation left adrenal mass, consistent with an adrenal adenoma. This measures 1 cm. Normal right adrenal gland. Normal right kidney. Normal left kidney. There is a small hiatal hernia. There is circumferential thickening at the level of the gastroesophageal junction. There is thickening of the distal portion of the body of the stomach. There is gaseous distention of the body and fundal portion of the stomach. Gastric outlet obstruction should be. Normal small intestine. There are multiple colonic diverticula consistent with diverticulosis. There is non-visualization of the appendix. There is diffuse atherosclerotic calcification of the abdominal aorta, without a demonstrated aneurysm. Normal inferior vena cava. Normal retroperitoneum. Normal urinary bladder. Normal abdominal wall. There are diffuse degenerative changes of the visualized lumbar spine. The patient is status post right total hip replacement. CT/Abdomen/Pelvis W IV Cont ONLY IMPRESSION: Hiatal hernia with the narrowing of the gastroesophageal junction. Findings suggestive of a diffuse thickening of the distal portion of the body and antral aspect of the stomach. Gastric outlet obstruction should be ruled out. The patient is status post cholecystectomy. There is intrahepatic biliary ductal dilatation. Electronically Signed: Isaias Munroe MD at 11:37 EDT , Service support ,
--- NOTE | 2021-04-07 09:53 | EDS_ITS ---
HPI HPI - GI History of Present Illness Chief Complaint: GI Bleed Informant: patient Narrative Narrative: Patient presents with epigastric pain nausea and vomiting with hematemesis that started about 530 this morning. She has had this before but it has not been this many episodes. She has a history of a hiatal hernia. She states she has had hematemesis with vomiting but normally it is just once. She has never had this evaluated. She had an episode in the hospital recently but it resolved. There was followed up with Dr. Luis Alfredo gerardo. She is on baby aspirin once a day but no other anticoagulation. She is not having diarrhea. She states until 530 she was feeling fine. She is now at a rehab/intermediate facility after her recent admission for COPD. She is on 4 L of oxygen. She is not complaining of COPD issues at this time. Nothing specifically is making her symptoms better or worse. [facility] Medical History Abdominal pain Acute gastritis Acute non-ST elevation myocardial infarction (NSTEMI) Anxiety Chronic constipation Chronic hypoxemic respiratory failure COPD (chronic obstructive pulmonary disease) Debility Degenerative disc disease, lumbar Depression Diverticulosis DVT (deep venous thrombosis) Dyspnea Epilepsy Essential tremor Extrapyramidal disorder Fall Gastritis Grade III hemorrhoids Hemorrhoids Hypertension Hypotension Hypothyroidism Insomnia Left arm weakness Obstructive sleep apnea On home oxygen therapy Pain, chronic Paresthesias Physical debility Polyneuropathy Rectal prolapse Restless leg syndrome Seizure disorder Sleep apnea Smoker Spinal stenosis Spinal stenosis of lumbar region Stress bladder incontinence, female Suicide attempt Takotsubo cardiomyopathy Tobacco use Vitamin D deficiency Home Medications duloxetine 20 mg PO DAILY 01/07/19 [History Last Taken 01/15/21] levothyroxine 50 mcg PO DAILY 01/07/19 [History Last Taken 11/21/20] potassium chloride 20 meq PO BID 01/07/19 [History Last Taken 01/15/21] mirtazapine 7.5 mg tablet 7.5 mg PO QHS tablet 02/21/19 [History Last Taken 01/15/21] ropinirole 2 mg PO QHS 08/08/19 [History Last Taken 01/15/21] acetaminophen 650 mg PO Q6H PRN PRN tablet 08/11/19 [Rx Last Taken Unknown] albuterol sulfate 90 mcg/actuation aerosol inhaler 1 inh INHALATION BID PRN PRN 05/13/20 [History Last Taken 11/21/20] calcium carbonate 500 mg calcium (1,250 mg) tablet 500 mg PO BID 05/13/20 [History Last Taken 01/15/21] fluticasone furoate 100 mcg-vilanterol 25 mcg/dose inhalation powder 2 puff INHALATION DAILY 05/13/20 [History Last Taken 11/22/20] mirabegron 25 mg tablet,extended release 24 hr 25 mg PO BID tab 05/13/20 [History Last Taken 01/15/21] omeprazole 20 mg capsule,delayed release 20 mg PO DAILY cap 05/13/20 [History Last Taken 01/15/21] sennosides 8.6 mg-docusate sodium 50 mg tablet 2 tab PO BID 05/13/20 [History Last Taken 01/15/21] brimonidine 0.15 % eye drops 1 drp OPHTHALMIC BID 07/09/20 [History Last Taken 01/15/21] benztropine 2 mg tablet 2 mg PO BID #60 tab 10/13/20 [Rx Last Taken 01/15/21] oxcarbazepine 600 mg tablet 600 mg PO BID #60 tab 10/13/20 [Rx Last Taken 01/15/21] phenobarbital 32.4 mg tablet 32.4 mg PO BID #60 tab 10/13/20 [Rx Last Taken 01/15/21] cholecalciferol (vitamin D3) 1,250 mcg PO WE 10/20/20 [History Last Taken 01/14/21] multivitamin 1 tab PO 1200 10/20/20 [History Last Taken 01/15/21] methadone 10 mg PO TID 5 Days #15 tab 10/25/20 [Rx Last Taken 01/15/21] ferrous sulfate [FeroSul] 325 mg PO 1200,1700 #60 tab 12/03/20 [Rx Last Taken 01/15/21] ondansetron 4 mg PO Q6H PRN 01/10/21 [History Last Taken Unknown] bisacodyl 10 mg VT DAILY PRN 01/16/21 [History Last Taken 01/10/21] loperamide [Imodium A-D] 2 mg PO Q6H PRN 01/16/21 [History Last Taken Unknown] mineral oil 118 ml VT DAILY PRN 01/16/21 [History Last Taken Unknown] Metamucil Fiber Singles 1 packet PO TID #0 ea 01/21/21 [Rx Last Taken Unknown] aspirin 81 mg PO 1200 #30 tab 01/21/21 [Rx Last Taken Unknown] atorvastatin 40 mg PO QHS #30 tab 01/21/21 [Rx Last Taken Unknown] magnesium hydroxide [Milk of Magnesia] 5 ml PO DAILY PRN #150 ml 01/21/21 [Rx Last Taken Unknown] midodrine 10 mg PO TID #90 tab 01/21/21 [Rx Last Taken Unknown] nicotine 1 patch TOPICAL DAILY #30 ea 01/21/21 [Rx Last Taken Unknown] nitroglycerin 0.4 mg SUBLINGUAL Q5M PRN #30 tab 01/21/21 [Rx Last Taken Unknown] polyethylene glycol 3350 17 g PO DAILY #0 ea 01/21/21 [Rx Last Taken Unknown] temazepam 30 mg PO QHS PRN #0 cap 01/21/21 [Rx Last Taken 01/15/21] docusate sodium [Colace] 100 mg PO DAILY #10 cap 01/31/21 [Rx Last Taken Unknown] hydrocortisone [Procto-Med HC] 1 applic VT DAILY PRN #30 g 01/31/21 [Rx Last Taken Unknown] prednisone 40 mg PO DAILY #10 tab 03/24/21 [Rx Last Taken Unknown] Allergy/AdvReac Type Severity Reaction Status Date / Time codeine Allergy Mild HIVES Verified 04/07/21 09:33 Penicillins Allergy Anaphylaxis Verified 04/07/21 09:33 Family History Mother Diabetes Heart disease Hypertension CAD (coronary artery disease) CVA (cerebral vascular accident) Thyroid disorder Father Colon cancer Surgical History History of bilateral carpal tunnel release History of bilateral cataract extraction History of blepharoplasty History of cystoscopy History of esophagogastroduodenoscopy (EGD) (~03/07/19) History of left heart catheterization (01/16/21) History of right hip replacement History of right salpingo-oophorectomy S/P appendectomy S/P laparoscopic cholecystectomy Status post ORIF of fracture of ankle Social History household members: none housing: apartment pets and animals: Yes (cat) pets and animals: cat(s) Smoking Status: Former smoker Tobacco: How many years used: 50 alcohol intake: never substance use type: does not use well-balanced diet: rarely or never do you feel safe at home: Yes ROS ROS ED Constitutional Constitutional ED: Denies chills or fever(s) ENT ENT ED: Denies rhinorrhea Cardiovascular Cardiovascular: Denies palpitations Respiratory/Chest Respiratory/Chest: Denies dyspnea Gastrointestinal Gastrointestinal: Reports abdominal pain, nausea, vomiting and other Details: See history of present illness ; Denies diarrhea or melena Genitourinary Genitourinary ED: Denies dysuria Musculoskeletal Musculoskeletal: Denies back pain Integumentary Denies rash Neurologic Neurologic: Denies headache(s), paresthesias or weakness Psychiatric Psychiatric: Denies anxiety Endocrine Endocrinology: Denies polydipsia or polyuria Hematologic/Lymphatic Hematologic/Lymphatic: Denies easy bleeding or easy bruising Allergic/Immunologic Allergic/Immunologic ED: Denies urticaria EXAM Physical Exam Const Vital Signs: 04/07/21 09:31 Temperature 98.6 F Temperature Source Oral Pulse Rate 93 Respiratory Rate 22 H Blood Pressure 155/81 H Blood Pressure Mean 105 Pulse Ox 100 Oxygen Delivery Method Nasal Cannula Oxygen Flow Rate (L/min) 4 Patient is actively holding emesis bag. It has some liquid johnson vomitus with some coffee grounds in it. No red blood. Positive well nourished and well developed General Appearance ED: well developed HEENT normocephalic and atraumatic Eyes General Eye ED: Negative for pale conjunctiva or scleral icterus Neck no JVD Resp normal respiratory effort Auscultation: Negative for wheezes Cardio regular rate and regular rhythm GI non-distended GI Narrative: Abdomen is soft. Bowel sounds are normal or slightly hyperactive. Abdomen not distended. There is some mild epigastric tenderness but no rebound. Palpation: soft Back/Spine no CVA tenderness Neuro Sensorium / Orientation: alert, oriented to person, oriented to place and oriented to time Psych mental status grossly normal Skin Lesions: no lesions Rashes: no rashes MDM MDM MDM Narrative Medical decision making narrative: Patient's blood work show stable hemoglobin. Coagulation studies liver function test are normal. Mild electrolyte abnormalities. Face is normal. Lactate is normal. I rechecked the patient. She has had 2 more episodes of vomiting. This is the same light brown liquid with some black specks. But they are fewer. No red blood. Her CT is showing some gastric thickening and possible outlet obstruction. I discussed the case with laborer cutting tool, Dr. Lobato who saw this patient in the hospital also. He stated that with her recurrent vomiting, blood, and the CT findings he would recommend admission. I have hospitalist on page. Lab Data Attestation: I reviewed the patient's lab results. Labs: Laboratory Results - last 24 hr 04/07/21 04/07/21 04/07/21 10:10 10:10 10:10 WBC 9.4 RBC 3.98 L Hgb 12.0 Hct 35.8 L MCV 89.9 MCH 30.2 MCHC 33.5 RDW Std Deviation 43.6 RDW Coeff of Jordin 13.2 Plt Count 353 MPV 9.0 Immature Gran % (Auto) 0.300 Neut % (Auto) 90.7 H Lymph % (Auto) 6.3 L [place] % (Auto) 2.2 Eos % (Auto) 0.1 Baso % (Auto) 0.4 Absolute Neuts (auto) 8.5 H Absolute Lymphs (auto) 0.59 L Nucleated RBC % 0 Platelet Estimate ADEQUATE RBC Morphology NORM C+C PT 12.7 INR 1.0 APTT 30.8 Sodium 129 L Potassium 3.4 L Chloride 88 L Carbon Dioxide 31.0 Anion Gap 10 BUN 4 L Creatinine 0.43 L Estim Creat Clear Calc 46.43 Est GFR (MDRD) Af Amer 188 Est GFR (MDRD) Non-Af 155 BUN/Creatinine Ratio 9.4 L Glucose 159 H Lactic Acid Calcium 8.9 Total Bilirubin 0.30 AST 18 ALT 22 Alkaline Phosphatase 126 H Troponin I High Sens 9 Total Protein 7.8 Albumin 3.2 Globulin 4.6 H Albumin/Globulin Ratio 0.7 L Lipase 17 L 04/07/21 10:10 WBC RBC Hgb Hct MCV MCH MCHC RDW Std Deviation RDW Coeff of Jordin Plt Count MPV Immature Gran % (Auto) Neut % (Auto) Lymph % (Auto) [place] % (Auto) Eos % (Auto) Baso % (Auto) Absolute Neuts (auto) Absolute Lymphs (auto) Nucleated RBC % Platelet Estimate RBC Morphology PT INR APTT Sodium Potassium Chloride Carbon Dioxide Anion Gap BUN Creatinine Estim Creat Clear Calc Est GFR (MDRD) Af Amer Est GFR (MDRD) Non-Af BUN/Creatinine Ratio Glucose Lactic Acid 1.0 Calcium Total Bilirubin AST ALT Alkaline Phosphatase Troponin I High Sens Total Protein Albumin Globulin Albumin/Globulin Ratio Lipase Radiography Diagnostic Testing: Clinical Impression(s) from Imaging Studies Abdomen/Pelvis CT 04/07/21 09:50 IMPRESSION: Hiatal hernia with the narrowing of the gastroesophageal junction. Findings suggestive of a diffuse thickening of the distal portion of the body and antral aspect of the stomach. Gastric outlet obstruction should be ruled out. The patient is status post cholecystectomy. There is intrahepatic biliary ductal dilatation. Electronically Signed: Isaias Munroe MD at 11:37 EDT , Service support , EKG Initial EKG: Comments: EKG done for epigastric pain read by me shows sinus rhythm with [address] elevation or depression. Mild nonspecific changes. VT interval, QRS duration and QTc are normal. Discharge Plan Dx/Rx/DC Orders Clinical Impression: Acute GI bleeding, Acquired gastric outlet stenosis, Intractable nausea and vomiting Disposition Disposition: Acute Care Hospital [facility]
[2021-04-07] MEDS: Morphine 4 MG/ML Syringe IV (10:12)
[2021-04-07] MEDS: Ondansetron 4 MG/2 ML Vial IV ×2 (10:12→15:50)
[2021-04-07 10:22] LABS: Absolute Lymphocyte Count 0.59 X10^3/uL (0.83-4.51); Absolute Neutrophil Count 8.5 X10^3/uL (2.0-7.7); Basophil# 0.04 X10^3/uL; Basophil% 0.4 % (0-1); Differential Indicated SCAN CRITERIA MET; Eosinophil# 0.01 X10^3/uL; Eosinophils% 0.1 % (0-5); Hematocrit 35.8 % (37-47); Lymphocyte # 0.59 X10^3/ul (0.83-4.51); Lymphocyte % 6.3 % (19-41); Mean Corp Hgb Conc 33.5 g/dL (32-36); Mean Corpuscular Hgb 30.2 pg (27.0-32.0); Mean Corpuscular Volume 89.9 fL (81-99); Monocyte# 0.21 X10^3/uL; Monocyte% 2.2 % (0-10); NRBC Flagged by Analyzer 0 % (0-5); Neutrophil # 8.49 X10^3/uL (2.7-7.7); Neutrophil % 90.7 % (47-70); POSITIVE DIFFERENTIAL YES; Platelet Count 353 K/mm3 (150-450); RBC Distribution Width CV 13.2 % (11.6-14.6); RBC Distribution Width SD 43.6 fl (35.1-43.9); Red Blood Count 3.98 M/mm3 (4.2-5.4); White Blood Count 9.4 K/mm3 (4.4-11.0)
[2021-04-07 10:30] LABS: Prothrombin Time (Protime)PT. 12.7 SECONDS (11.7-14.9)
[2021-04-07 10:31] LABS: Partial Thromboplast Time 30.8 Seconds (24.1-36.2)
[2021-04-07 10:48] LABS: Platelet Estimate ADEQUATE (ADEQ); Red Cell Morphology NORM C+C NORMAL (NORM C&C)
[2021-04-07 10:50] LABS: ALB/GLOB Ratio 0.7 RATIO (0.9-2.4); AST(SGOT) 18 U/L (15-37); Alanine Aminotransfer ALT/SGPT 22 U/L (13-56); Albumin, Serum 3.2 g/dL (3.2-5.0); Alkaline Phosphatase 126 U/L (45-117); Anion Gap 10 (5-15); BUN 4 mg/dL (7-18); BUN/Creat Ratio 9.4 RATIO (10-20); Calcium,Total 8.9 mg/dL (8.5-10.1); Chloride 88 mmol/L (98-107); Creatinine, Serum 0.43 mg/dL (0.55-1.02); EST Glomerular Filtration Rate 155 mL/min (>60); Est Glom Filt Rate - Afr Amer 188 mL/min (>60); Estimated Creatinine Clearance 46.43 ml/min; Globulin 4.6 g/dL (2.2-4.2); Glucose 159 mg/dL (74-106); Lipase 17 U/L (73-393); Potassium 3.4 mmol/L (3.5-5.1); Protein, Total 7.8 g/dL (6.4-8.2); Sodium Level 129 mmol/L (136-145); Troponin-I HS 9 pg/mL (3.0-54.0)
[2021-04-07 13:21] VITALS: BP 157/104; PULSE 95; RESP 18; O2SAT 96
--- NOTE | 2021-04-07 13:38 | ED.RN ---
DR DEY NOTIFIED PT STILL IN PAIN
[2021-04-07 13:51] VITALS: BP 157/104; PULSE 95; RESP 16; TEMP 37.2; O2SAT 96
--- NOTE | 2021-04-07 13:55 | NURSING ---
MED SURG OBS TERELETSKY GI BLEED
--- NOTE | 2021-04-07 15:25 | CASEMGMT ---
Social Work Note GRAHAM reviewed chart. Pt is listed as being from [facility]. GRAHAM placed a call to Yana at [facility]. Pt is at [facility] skilled and then will transition [facility] care. Yana states pt can return to [facility] skilled whenever pt is medically cleared. Cheyanne Cee INSPECTOR AND CLERK, TABLEAU DEVELOPER
[2021-04-07] MEDS: 0.9% Normal Saline 1,000 ML 100 ML IV (15:27)
[2021-04-07 15:32] VITALS: BMI 27.1
[2021-04-07] MEDS: Acetaminophen 325 MG Tablet 650 MG PO (15:50)
--- NOTE | 2021-04-07 15:54 | NURSING ---
pandemic documentation 04/07/21 [id number]
--- NOTE | 2021-04-07 16:03 | PCM.HP.STD ---
HPI - General General Date of Admission: 04/07/21 Date of Service: 04/07/21 Chief Complaint: Hematemesis HPI Narrative XANDER RAMIREZ, is a 70 F who presents to the emergency room at [facility] after being transported from a local [facility] care facility where she resides going through inpatient rehab services with complaints of nausea and vomiting and hematemesis that started earlier this morning. Patient also complained of mid abdominal pain. She had been admitted to the hospital recently with the same complaints but the hematemesis resolved and she was supposed to follow-up with gastroenterology. Patient denies any diarrhea. While she was in the emergency room she had vomitus with some coffee-ground emesis present. Work-up in the emergency room included labs which showed a hemoglobin of 12, chemistry was remarkable for sodium of 129, potassium of 3.4, glucose of 159, and a chloride of 88. Alkaline phosphatase was slightly elevated. CT of the abdomen and pelvis showed a hiatal hernia with narrowing of the gastroesophageal junction, there was noted to be diffuse thickening of the distal portion of the body and antral aspect of the stomach, gastric outlet obstruction should be ruled out according to radiology. Patient was status post cholecystectomy and there was intrahepatic biliary ductal dilatation. Patient will be placed in observation status on Medr, she will be given IV fluids and IV pain medications and seen in consultation by gastroenterology. Labs will be rechecked. [facility] Medical History Abdominal pain Acute gastritis Acute non-ST elevation myocardial infarction (NSTEMI) Anxiety Chronic constipation Chronic hypoxemic respiratory failure COPD (chronic obstructive pulmonary disease) Debility Degenerative disc disease, lumbar Depression Diverticulosis DVT (deep venous thrombosis) Dyspnea Epilepsy Essential tremor Extrapyramidal disorder Fall Gastritis Grade III hemorrhoids Hemorrhoids Hypertension Hypotension Hypothyroidism Insomnia Left arm weakness Obstructive sleep apnea On home oxygen therapy Pain, chronic Paresthesias Physical debility Polyneuropathy Rectal prolapse Restless leg syndrome Seizure disorder Sleep apnea Smoker Spinal stenosis Spinal stenosis of lumbar region Stress bladder incontinence, female Suicide attempt Takotsubo cardiomyopathy Tobacco use Vitamin D deficiency Home Medications duloxetine 20 mg PO DAILY 01/07/19 [History Last Taken 04/06/21] potassium chloride 20 meq PO BID 01/07/19 [History Last Taken 04/06/21] mirtazapine 7.5 mg tablet 7.5 mg PO QHS tablet 02/21/19 [History Last Taken 04/06/21] ropinirole 2 mg PO QHS 08/08/19 [History Last Taken 04/06/21] calcium carbonate 500 mg calcium (1,250 mg) tablet 500 mg PO BID 05/13/20 [History Last Taken 04/06/21] fluticasone furoate 100 mcg-vilanterol 25 mcg/dose inhalation powder 2 puff INHALATION DAILY 05/13/20 [History Last Taken 04/06/21] mirabegron 25 mg tablet,extended release 24 hr 25 mg PO BID tab 05/13/20 [History Last Taken 04/06/21] omeprazole 20 mg capsule,delayed release 20 mg PO DAILY cap 05/13/20 [History Last Taken 04/06/21] sennosides 8.6 mg-docusate sodium 50 mg tablet 2 tab PO BID 05/13/20 [History Last Taken 04/06/21] oxcarbazepine 600 mg tablet 600 mg PO BID #60 tab 10/13/20 [Rx Last Taken 04/06/21] phenobarbital 32.4 mg tablet 32.4 mg PO BID #60 tab 10/13/20 [Rx Last Taken 04/06/21] cholecalciferol (vitamin D3) 1,250 mcg PO WE 10/20/20 [History Last Taken 04/01/21] multivitamin 1 tab PO 1200 10/20/20 [History Last Taken 04/06/21] methadone 10 mg PO TID 5 Days #15 tab 10/25/20 [Rx Last Taken 04/06/21] ondansetron 4 mg PO Q6H PRN 01/10/21 [History Last Taken 04/07/21] Metamucil Fiber Singles 1 packet PO TID #0 ea 01/21/21 [Rx Last Taken 04/05/21] midodrine 10 mg PO TID #90 tab 01/21/21 [Rx Last Taken 04/06/21] nicotine 1 patch TOPICAL DAILY #30 ea 01/21/21 [Rx Last Taken 04/07/21] nitroglycerin 0.4 mg SUBLINGUAL Q5M PRN #30 tab 01/21/21 [Rx Last Taken Unknown] temazepam 30 mg PO QHS PRN #0 cap 01/21/21 [Rx Last Taken 04/05/21] hydrocortisone [Procto-Med HC] 1 applic VT DAILY PRN #30 g 01/31/21 [Rx Last Taken Unknown] aspirin 81 mg PO DAILY@1200 04/07/21 [History Last Taken 04/06/21] atorvastatin 40 mg PO QHS 04/07/21 [History Last Taken 04/06/21] benztropine 2 mg PO BID 04/07/21 [History Last Taken 04/06/21] brimonidine 1 drp EACH EYE BID 04/07/21 [History Last Taken 04/06/21] docusate sodium [Colace] 100 mg PO DAILY 04/07/21 [History Last Taken 04/06/21] ferrous sulfate [FeroSul] 325 mg PO QODAY 04/07/21 [History Last Taken 04/06/21] levothyroxine 25 mcg PO DAILY 04/07/21 [History Last Taken 04/06/21] polyethylene glycol 3350 17 g PO DAILY 04/07/21 [History Last Taken 04/06/21] Allergy/AdvReac Type Severity Reaction Status Date / Time codeine Allergy Mild HIVES Verified 04/07/21 09:33 Penicillins Allergy Anaphylaxis Verified 04/07/21 09:33 Family History Mother Diabetes Heart disease Hypertension CAD (coronary artery disease) CVA (cerebral vascular accident) Thyroid disorder Father Colon cancer Surgical History History of bilateral carpal tunnel release History of bilateral cataract extraction History of blepharoplasty History of cystoscopy History of esophagogastroduodenoscopy (EGD) (~03/07/19) History of left heart catheterization (01/16/21) History of right hip replacement History of right salpingo-oophorectomy S/P appendectomy S/P laparoscopic cholecystectomy Status post ORIF of fracture of ankle Social History household members: none housing: apartment pets and animals: Yes (cat) pets and animals: cat(s) Smoking Status: Former smoker Tobacco: How many years used: 50 alcohol intake: never substance use type: does not use well-balanced diet: rarely or never do you feel safe at home: Yes ROS Constitutional Constitutional: Denies anorexia, change in weight, fever(s), night sweats or weakness Eyes Eyes: Denies blurry vision, change in vision, discharge from eye(s) or eye pain Cardiovascular Cardiovascular: Denies chest pain, claudication, edema or palpitations Respiratory/Chest Respiratory/Chest: Denies cough, hemoptysis, shortness of breath at rest or shortness of breath with exertion Gastrointestinal Gastrointestinal: Reports abdominal pain, hematemesis, nausea and vomiting; Denies constipation, diarrhea, hematochezia or melena Genitourinary Genitourinary: Denies dysuria, hematuria, urinary frequency, urinary hesitancy, urinary incontinence or urinary urgency Musculoskeletal Musculoskeletal: Denies back pain, joint pain, joint stiffness, joint swelling, myalgias or neck pain Neurologic Neurologic: Denies abnormal gait, abnormal speech, confusion, disequilibrium, dizziness, focal weakness, headache(s), loss of vision, numbness, other visual disturbances, paresthesias, syncope or tingling Psychiatric Psychiatric: Denies anxiety, cognitive impairment, depression, irritability, mood swings or suicidal ideation Endocrine Endocrinology: Denies change in body appearance, cold intolerance, excessive sweating, heat intolerance, polydipsia or polyuria Hematologic/Lymphatic Hematologic/Lymphatic: Denies none, anemia, easy bleeding, easy bruising or lymphadenopathy Allergic/Immunologic Allergic/Immunologic: Denies rhinitis, urticaria, eczemia or asthma Vital Signs Vital Signs Vital Signs: 04/07/21 09:31 04/07/21 13:21 04/07/21 13:51 Temperature 98.6 F 98.9 F Temperature Source Oral Oral Pulse Rate 93 95 95 Respiratory Rate 22 H 18 16 Respiratory Effort Blood Pressure 155/81 H 157/104 H 157/104 H Blood Pressure Mean 105 121 121 Pulse Ox 100 96 96 Oxygen Delivery Method Nasal Cannula Nasal Cannula Nasal Cannula Oxygen Flow Rate (L/min) 4 4 2 04/07/21 15:55 Temperature Temperature Source Pulse Rate Respiratory Rate Respiratory Effort Normal Non-Labored Blood Pressure Blood Pressure Mean Pulse Ox Oxygen Delivery Method Nasal Cannula Oxygen Flow Rate (L/min) 3 Weight Weight: 73.845 kg Body Mass Index (BMI) 27.1 Physical Exam Const alert, oriented x3, no apparent distress and well nourished Constitutional Narrative: Patient has evidence of tar dive dyskinesia movements in her face during the time of my examination General Appearance: cooperative, well kempt and well developed Orientation / Consciousness: awake, oriented to person, oriented to place and oriented to time HEENT normocephalic, head/scalp atraumatic, hearing grossly normal bilaterally and moist oral mucous membranes Eyes PERRL, EOMs intact bilaterally and conjunctivae normal Neck nuchal rigidity, supple, no JVD, thyroid normal and no carotid bruits General: trachea midline Resp normal respiratory effort, no retractions, no use of accessory muscles and clear to auscultation bilaterally Auscultation: Negative for rales, rhonchi or wheezes Cardio regular rate, regular rhythm, S1 normal heart sound, S2 normal heart sound, no murmurs, no rub and no gallops GI normal to inspection, nondistended, normoactive bowel sounds and non-distended GI Narrative: Patient had diffuse abdominal discomfort upon palpation of the mid abdominal area, no rebound abdominal tenderness was noted Extremity no clubbing, cyanosis or edema Skin no rashes or lesions noted General Skin Exam: no breakdown Neuro oriented x3, CN's II-XII intact bilaterally, no focal motor deficits and no sensory deficits noted Sensorium / Orientation: awake and alert Speech: speech normal Psych thought process normal and affect normal Results Lab / Micro Data Result Diagrams: 04/07/21 10:10 04/07/21 10:10 Labs: Laboratory Results - last 24 hr 04/07/21 10:10: PT 12.7, INR 1.0, APTT 30.8 04/07/21 10:10: WBC 9.4, RBC 3.98 L, Hgb 12.0, Hct 35.8 L, MCV 89.9, MCH 30.2, MCHC 33.5, RDW Std Deviation 43.6, RDW Coeff of Jordin 13.2, Plt Count 353, MPV 9.0, Immature Gran % (Auto) 0.300, Neut % (Auto) 90.7 H, Lymph % (Auto) 6.3 L, [place] % (Auto) 2.2, Eos % (Auto) 0.1, Baso % (Auto) 0.4, Absolute Neuts (auto) 8.5 H, Absolute Lymphs (auto) 0.59 L, Nucleated RBC % 0, Platelet Estimate ADEQUATE, RBC Morphology NORM C+C 10/19/21 10:10: Sodium 129 L, Potassium 3.4 L, Chloride 88 L, Carbon Dioxide 31.0, Anion Gap 10, BUN 4 L, Creatinine 0.43 L, Estim Creat Clear Calc 46.43, Est GFR (MDRD) Af Amer 188, Est GFR (MDRD) Non-Af 155, BUN/Creatinine Ratio 9.4 L, Glucose 159 H, Calcium 8.9, Total Bilirubin 0.30, AST 18, ALT 22, Alkaline Phosphatase 126 H, Troponin I High Sens 9, Total Protein 7.8, Albumin 3.2, Globulin 4.6 H, Albumin/Globulin Ratio 0.7 L, Lipase 17 L 04/07/21 10:10: Lactic Acid 1.0 Radiology Impression Abdomen/Pelvis CT 04/07/21 09:50 IMPRESSION: Hiatal hernia with the narrowing of the gastroesophageal junction. Findings suggestive of a diffuse thickening of the distal portion of the body and antral aspect of the stomach. Gastric outlet obstruction should be ruled out. The patient is status post cholecystectomy. There is intrahepatic biliary ductal dilatation. Electronically Signed: Isaias Munroe MD at 11:37 EDT , Service support , Assessment & Plan Assessment/Plan (1) Acute GI bleeding: PLAN: 1. Hematemesis-etiology unclear, patient will be placed into observation status on MedSurg, she will be placed on IV Protonix and seen in consultation by gastroenterology. She most probably will need an EGD performed. #2 generalized abdominal pain-etiology unclear, again patient will be seen by gastroenterology #3 hyponatremia-patient's labs will be rechecked tomorrow #4 hypokalemia-this is mild, again patient's labs will be rechecked tomorrow #5 seizure disorder-patient is on phenobarbital #6 hyperlipidemia #7 tardive dyskinesia #8 COPD #9 hypothyroidism #10 chronic pain-chronic back pain high-patient is taking methadone presently #11 obstructive sleep apnea-patient is noncompliant with CPAP #12 debility-patient is presently undergoing inpatient rehab services at a long term facility. #13 chronic hypoxic respiratory failure-patient is currently on nasal cannula O2 Charges/Coding Visit Charges OBSV E&M: 38668 Initial observation care L3
[2021-04-07 16:08] VITALS: BP 169/87; PULSE 89; RESP 18; TEMP 36.7; O2SAT 100
[2021-04-07] MEDS: Potassium Chloride Oral Tablet 20 MEQ PO (17:23)
[2021-04-07] MEDS: Calcium (Elemental) 500 MG Tablet PO (17:23)
--- NOTE | 2021-04-07 19:08 | PCS.PANDOC ---
PANDEMIC DOCUMENTATION INITIATED: Date: 02/02/2021 Time: 190
[2021-04-07 19:29] VITALS: PULSE 88; RESP 20
[2021-04-07] MEDS: Albuterol 2.5 MG/3 ML VIAL.NEB. INHALATION (19:29)
[2021-04-07] MEDS: Budesonide Respules 0.5 MG/2 ML AMPUL.NEB. INHALATION (19:29)
--- NOTE | 2021-04-07 20:23 | PCS.PANDOC ---
PANDEMIC DOCUMENTATION INITIATED: Date: 02/02/2021 Time: 190
[2021-04-07] MEDS: Methadone 10 MG Tablet PO (21:15)
[2021-04-07] MEDS: Mirabegron 25 MG TAB.ER.24H PO (21:16)
[2021-04-07] MEDS: Benztropine 2 MG Tablet PO (21:17)
[2021-04-07] MEDS: Atorvastatin Calcium 40 MG Tablet PO (21:17)
[2021-04-07] MEDS: Pramipexole Di-HCl 1 MG Tablet PO (21:18)
[2021-04-07] MEDS: Mirtazapine 15 MG Tablet 7.5 MG PO (21:18)
[2021-04-07] MEDS: OXcarbazepine 600 MG Tablet PO (21:18)
[2021-04-07] MEDS: Psyllium 1 PACKET PO (21:19)
[2021-04-07] MEDS: BRIMONIDINE 0.2% 5ML BOTTLE 1 DRP EACH EYE (21:19)
[2021-04-07] MEDS: Temazepam 15 MG Capsule 30 MG PO (21:23)
[2021-04-07] MEDS: Phenobarbital 32.4 MG Tablet PO (21:23)
[2021-04-08] VITALS (9 sets, daily range): BP systolic 96–148; BP diastolic 50–79; PULSE 55–90; RESP 16–22; TEMP 36.6–37.6; O2SAT 94–99
[2021-04-08] MEDS: 0.9% Normal Saline 1,000 ML 100 ML IV ×3 (03:08→22:35)
[2021-04-08] MEDS: Methadone 10 MG Tablet PO ×3 (06:01→22:23)
[2021-04-08] MEDS: Levothyroxine 25 MCG TABLET PO (06:02)
[2021-04-08] MEDS: Acetaminophen 325 MG Tablet 650 MG PO (06:03)
[2021-04-08] MEDS: Psyllium 1 PACKET PO ×2 (06:06→14:47)
[2021-04-08 06:41] LABS: Absolute Lymphocyte Count 1.84 X10^3/uL (0.83-4.51); Absolute Neutrophil Count 4.6 X10^3/uL (2.0-7.7); Basophil# 0.04 X10^3/uL; Basophil% 0.5 % (0-1); Eosinophil# 0.29 X10^3/uL; Eosinophils% 3.8 % (0-5); Hematocrit 30.6 % (37-47); Hemoglobin 9.5 g/dL (12.0-15.0); Lymphocyte # 1.84 X10^3/ul (0.83-4.51); Lymphocyte % 24.3 % (19-41); Mean Corpuscular Hgb 29.1 pg (27.0-32.0); Mean Corpuscular Volume 93.9 fL (81-99); Mean Platelet Vol. 9.6 fl (6.2-12.0); Monocyte# 0.77 X10^3/uL; Monocyte% 10.2 % (0-10); NRBC Flagged by Analyzer 0 % (0-5); Neutrophil % 60.8 % (47-70); POSITIVE COUNT YES; Platelet Count 272 K/mm3 (150-450); RBC Distribution Width CV 13.4 % (11.6-14.6); RBC Distribution Width SD 46.2 fl (35.1-43.9); Red Blood Count 3.26 M/mm3 (4.2-5.4); White Blood Count 7.6 K/mm3 (4.4-11.0)
[2021-04-08 06:54] LABS: Differential Indicated SCAN CRITERIA MET
--- NOTE | 2021-04-08 06:58 | NURSING ---
Straight cathed per order for 800 ml of slightly cloudy urine with foul smell. Procedure well tolerated.
[2021-04-08] MEDS: Albuterol 2.5 MG/3 ML VIAL.NEB. INHALATION ×2 (07:03→19:10)
[2021-04-08] MEDS: Budesonide Respules 0.5 MG/2 ML AMPUL.NEB. INHALATION ×2 (07:03→19:10)
[2021-04-08 07:19] LABS: Anion Gap 9 (5-15); BUN 5 mg/dL (7-18); Calcium,Total 8.3 mg/dL (8.5-10.1); Chloride 97 mmol/L (98-107); Creatinine, Serum 0.31 mg/dL (0.55-1.02); EST Glomerular Filtration Rate 222 mL/min (>60); Est Glom Filt Rate - Afr Amer 268 mL/min (>60); Estimated Creatinine Clearance 46.43 ml/min; Glucose 88 mg/dL (74-106); Potassium 3.5 mmol/L (3.5-5.1); Sodium Level 133 mmol/L (136-145)
[2021-04-08] MEDS: Docusate Sodium 100 MG Capsule PO (09:33)
[2021-04-08] MEDS: Polyethylene Glycol 3350 17 GM PACKET PO (09:33)
[2021-04-08] MEDS: Enoxaparin 40 MG/0.4 ML Syringe SC (09:33)
[2021-04-08] MEDS: Phenobarbital 32.4 MG Tablet PO ×2 (09:34→22:23)
[2021-04-08] MEDS: Potassium Chloride Oral Tablet 20 MEQ PO ×2 (09:34→16:49)
[2021-04-08] MEDS: Multivitamins,Therapeutic Tablet 1 TABLET PO (09:34)
[2021-04-08] MEDS: Ergocalciferol 1.25 MG (50, 000 UNIT) Capsule PO (09:35)
[2021-04-08] MEDS: Midodrine HCl 5 MG Tablet 10 MG PO ×3 (09:35→16:48)
[2021-04-08] MEDS: DULoxetine Hcl 20 MG Capsule PO (09:35)
[2021-04-08] MEDS: Benztropine 2 MG Tablet PO ×2 (09:35→22:25)
[2021-04-08] MEDS: OXcarbazepine 600 MG Tablet PO ×2 (09:36→22:26)
[2021-04-08] MEDS: BRIMONIDINE 0.2% 5ML BOTTLE 1 DRP EACH EYE ×2 (09:36→22:24)
[2021-04-08] MEDS: Mirabegron 25 MG TAB.ER.24H PO ×2 (09:37→22:24)
--- NOTE | 2021-04-08 10:22 | CASEMGMT ---
Addendum entered by Cheyanne Cee 04/08/21 12:59: SW in to speak with pt. SW introduced self and role at [facility]. Pt confirms she came from [facility] and plan is to return at discharge. Original Note: Social Work Note SW faxed updated clinicals to [facility]. SW placed a call to pt's CM Beata Chen and left message informing her of pt's admission to [facility]. Plan: Return to [facility] when medically cleared Cheyanne Cee AUTOMOTIVE GENERATOR REPAIRER, BACKGROUND INVESTIGATOR
[2021-04-08] MEDS: Calcium (Elemental) 500 MG Tablet PO ×2 (12:43→16:49)
--- NOTE | 2021-04-08 13:52 | PN.HOSP_ITS ---
Subjective Subjective Patient seen and examined. She was admitted with a complaint of nausea, vomiting and hematemesis. She had associated abdominal pain. She had similar symptoms in the hospital a few weeks ago, and was to follow up with GI on outpatient basis, but doesnt appear to have done so. SHe complained of feeling weak and tired this morning. She denied any abdominal pain and any hematemesis today. Review of systems is otherwise negative. Objective Data Objective Data Vital Signs: Vital Signs Temp Pulse Resp BP Pulse Ox 99.1 F 73 20 H 109/57 L 96 04/08/21 09:40 04/08/21 09:40 04/08/21 09:40 04/08/21 09:40 04/08/21 09:40 Oxygen Flow Rate (L/min) 2 Oxygen Delivery Method Nasal Cannula Weight: 162 lb 12.8 oz Body Mass Index (BMI) 27.1 Intake & Output: Intake and Output for Last 24 Hours 04/06/21 04/07/21 04/08/21 23:59 23:59 23:59 Intake Total 165.83 / 165.83 2201.67 / 2201.67 Output Total 900 / 900 Balance 165.83 / 65.83 1301.67 / 1301.67 Lab / Micro Data Result Diagrams: 04/08/21 06:05 04/08/21 06:05 Labs: Laboratory Results - last 24 hr 04/08/21 06:05: WBC 7.6, RBC 3.26 L, Hgb 9.5 L, Hct 30.6 L, MCV 93.9, MCH 29.1, MCHC 31.0 L D, RDW Std Deviation 46.2 H, RDW Coeff of Jordin 13.4, Plt Count 272, MPV 9.6, Immature Gran % (Auto) 0.400, Neut % (Auto) 60.8, Lymph % (Auto) 24.3, [place] % (Auto) 10.2 H, Eos % (Auto) 3.8, Baso % (Auto) 0.5, Absolute Neuts (auto) 4.6, Absolute Lymphs (auto) 1.84, Nucleated RBC % 0 04/08/21 06:05: Sodium 133 L, Potassium 3.5, Chloride 97 L, Carbon Dioxide 27.0, Anion Gap 9, BUN 5 L, Creatinine 0.31 L, Estim Creat Clear Calc 46.43, Est GFR (MDRD) Af Amer 268, Est GFR (MDRD) Non-Af 222, BUN/Creatinine Ratio 16.0, Glucose 88, Calcium 8.3 L Physical Exam Const alert, oriented x3 and no apparent distress Exam Limitations: no limitations HEENT head/scalp atraumatic Head and Scalp: normocephalic Mouth: dry mucous membranes Neck no lymphadenopathy and supple Resp normal respiratory effort, no retractions, no use of accessory muscles and clear to auscultation bilaterally Cardio regular rate, regular rhythm, S1 normal heart sound, S2 normal heart sound and no murmurs GI normal to inspection, nondistended, normoactive bowel sounds, soft to palpation, non-tender and non-distended Extremity normal to inspection, full ROM and no clubbing, cyanosis or edema Peripheral Pulses: Yes pulses 2+ throughout Skin no rashes or lesions noted Neuro oriented x3, CN's II-XII intact bilaterally and moves all extremities Sensorium / Orientation: awake and alert Psych affect normal Assessment & Plan Assessment/Plan (1) Intractable nausea and vomiting: (2) Acquired gastric outlet stenosis: (3) Acute GI bleeding: PLAN: #Hematemesis, concerning for UGI bleed * this hasnt recurred since admission * Hb is 9.5 * CT of the abdomen was concerning for gastric outlet obstruction * gastroenterology on board * On IV protonix * will need EGD * spirin on hold. #Hyponatremia: resolved #Hypokalemia: resolved #Seizure disorder: on phenobarbital #Hyperlipidemia: on statin #Tardive dyskinesia: stable. #COPD: on breathing treatment with bronchodilators #Hypothyroidism: on synthroid #CHUY: on CPAP, but noncompliant. #Chronic hypoxic respiratory failure: on oxygen 2L by nasal canula, which is her baseline. DVT prophylaxis; currently on lovenox. WIll dc and put on SCDs. Charges/Coding Visit Charges Inpatient E&M: 54077 Subs Hosp L2
--- NOTE | 2021-04-08 15:10 | NURSING ---
pt has not voided, bladder scanned for 116, will continue to monitor.
--- NOTE | 2021-04-08 16:20 | CASEMGMT ---
ERIC BELLE in to discuss WILDE form with patient. RN YOSHI explained WILDE form, patient voiced understanding. Pt signed form and filed in chart. Pt provided with a copy of signed WILDE form. Pt requests crossword puzzles, given to her at this time. Patient had no further questions or concerns at this time.
--- NOTE | 2021-04-08 19:09 | MDS.RN ---
bladder scan done 515, straight cathed for 450 m.l.
[2021-04-08] MEDS: Temazepam 15 MG Capsule 30 MG PO (22:23)
[2021-04-08] MEDS: Pramipexole Di-HCl 1 MG Tablet PO (22:25)
[2021-04-08] MEDS: Mirtazapine 15 MG Tablet 7.5 MG PO (22:26)
[2021-04-08] MEDS: Atorvastatin Calcium 40 MG Tablet PO (22:27)
[2021-04-09] VITALS (9 sets, daily range): BP systolic 111–144; BP diastolic 54–75; PULSE 67–90; RESP 14–18; TEMP 36.7–37.2; O2SAT 94–99
[2021-04-09] MEDS: Methadone 10 MG Tablet PO ×3 (05:46→21:14)
[2021-04-09] MEDS: Levothyroxine 25 MCG TABLET PO (05:48)
[2021-04-09] MEDS: Budesonide Respules 0.5 MG/2 ML AMPUL.NEB. INHALATION ×2 (07:01→19:32)
[2021-04-09] MEDS: Albuterol 2.5 MG/3 ML VIAL.NEB. INHALATION ×3 (07:01→19:32)
[2021-04-09] MEDS: 0.9% Normal Saline 1,000 ML 100 ML IV ×2 (08:30→19:29)
[2021-04-09] MEDS: Docusate Sodium 100 MG Capsule PO (08:31)
[2021-04-09] MEDS: Potassium Chloride Oral Tablet 20 MEQ PO (08:31)
[2021-04-09] MEDS: Phenobarbital 32.4 MG Tablet PO ×2 (08:31→21:14)
[2021-04-09] MEDS: Polyethylene Glycol 3350 17 GM PACKET PO (08:31)
[2021-04-09] MEDS: BRIMONIDINE 0.2% 5ML BOTTLE 1 DRP EACH EYE ×2 (08:31→21:15)
[2021-04-09] MEDS: Mirabegron 25 MG TAB.ER.24H PO ×2 (08:32→21:15)
[2021-04-09] MEDS: OXcarbazepine 600 MG Tablet PO ×2 (08:32→21:14)
[2021-04-09] MEDS: Midodrine HCl 5 MG Tablet 10 MG PO ×3 (08:32→16:01)
[2021-04-09] MEDS: DULoxetine Hcl 20 MG Capsule PO (08:33)
[2021-04-09] MEDS: Benztropine 2 MG Tablet PO ×2 (08:34→21:14)
[2021-04-09 08:41] LABS: Absolute Lymphocyte Count 1.48 X10^3/uL (0.83-4.51); Absolute Neutrophil Count 4.1 X10^3/uL (2.0-7.7); Basophil# 0.06 X10^3/uL; Basophil% 0.9 % (0-1); Eosinophil# 0.65 X10^3/uL; Eosinophils% 9.5 % (0-5); Hematocrit 32.7 % (37-47); Hemoglobin 10.2 g/dL (12.0-15.0); Lymphocyte # 1.48 X10^3/ul (0.83-4.51); Lymphocyte % 21.7 % (19-41); Mean Corp Hgb Conc 31.2 g/dL (32-36); Mean Corpuscular Hgb 29.5 pg (27.0-32.0); Mean Corpuscular Volume 94.5 fL (81-99); Monocyte# 0.52 X10^3/uL; Monocyte% 7.6 % (0-10); NRBC Flagged by Analyzer 0 % (0-5); Neutrophil # 4.09 X10^3/uL (2.7-7.7); Neutrophil % 59.9 % (47-70); POSITIVE COUNT YES; RBC Distribution Width CV 13.8 % (11.6-14.6); RBC Distribution Width SD 47.8 fl (35.1-43.9); Red Blood Count 3.46 M/mm3 (4.2-5.4); White Blood Count 6.8 K/mm3 (4.4-11.0)
[2021-04-09 09:01] LABS: Anion Gap 6 (5-15); BUN 4 mg/dL (7-18); Calcium,Total 8.2 mg/dL (8.5-10.1); Chloride 102 mmol/L (98-107); Creatinine, Serum 0.33 mg/dL (0.55-1.02); EST Glomerular Filtration Rate 207 mL/min (>60); Est Glom Filt Rate - Afr Amer 251 mL/min (>60); Estimated Creatinine Clearance 46.43 ml/min; Glucose 109 mg/dL (74-106); Potassium 3.7 mmol/L (3.5-5.1); Sodium Level 136 mmol/L (136-145)
[2021-04-09 09:07] LABS: Differential Indicated SCAN CRITERIA MET; Platelet Estimate ADEQUATE (ADEQ)
--- NOTE | 2021-04-09 11:57 | PN.HOSP_ITS ---
Subjective Subjective Patient seen and examined. She had no complaitns today. She hasnt had any more hematemesis overnight. REview of systems otherwise negative. SHe is awaiting GI evaluation. Objective Data Objective Data Vital Signs: Vital Signs Temp Pulse Resp BP Pulse Ox 98.2 F 90 16 111/55 L 96 04/09/21 04:10 04/09/21 08:22 04/09/21 07:01 04/09/21 04:10 04/09/21 07:01 Oxygen Flow Rate (L/min) 2 Oxygen Delivery Method Nasal Cannula Weight: 162 lb 12.8 oz Body Mass Index (BMI) 27.1 Intake & Output: Intake and Output for Last 24 Hours 04/07/21 04/08/21 04/09/21 23:59 23:59 23:59 Intake Total 165.83 / 165.83 3275.00 / 3525.00 1351.67 / 1351.67 Output Total 1350 / 1550 300 / 300 Balance 165.83 / 65.83 1925.00 / 1975.00 1051.67 / 1051.67 Lab / Micro Data Result Diagrams: 04/09/21 08:18 04/09/21 08:18 Labs: Laboratory Results - last 24 hr 04/09/21 08:18: WBC 6.8, RBC 3.46 L, Hgb 10.2 L, Hct 32.7 L, MCV 94.5, MCH 29.5, MCHC 31.2 L, RDW Std Deviation 47.8 H, RDW Coeff of Jordin 13.8, Plt Count , MPV 9.0, Immature Gran % (Auto) 0.400, Neut % (Auto) 59.9, Lymph % (Auto) 21.7, Charles % (Auto) 7.6, Eos % (Auto) 9.5 H, Baso % (Auto) 0.9, Absolute Neuts (auto) 4.1, Absolute Lymphs (auto) 1.48, Nucleated RBC % 0, Platelet Estimate ADEQUATE 04/09/21 08:18: Sodium 136, Potassium 3.7, Chloride 102, Carbon Dioxide 28.0, Anion Gap 6, BUN 4 L, Creatinine 0.33 L, Estim Creat Clear Calc 46.43, Est GFR (MDRD) Af Amer 251, Est GFR (MDRD) Non-Af 207, BUN/Creatinine Ratio 12.0, Glucose 109 H, Calcium 8.2 L Physical Exam Const alert, oriented x3, no apparent distress and well nourished General Appearance: cooperative, well kempt and well developed Orientation / Consciousness: awake, oriented to person, oriented to place and oriented to time Exam Limitations: no limitations HEENT normocephalic, head/scalp atraumatic, hearing grossly normal bilaterally and moist oral mucous membranes Head and Scalp: normocephalic Eyes PERRL, EOMs intact bilaterally and conjunctivae normal Neck nuchal rigidity, no lymphadenopathy, supple, thyroid normal and no carotid bruits General: trachea midline Resp normal respiratory effort, no retractions, no use of accessory muscles and clear to auscultation bilaterally Auscultation: Negative for rales, rhonchi or wheezes Cardio regular rate, regular rhythm, S1 normal heart sound, S2 normal heart sound, no murmurs, no rub and no gallops GI normal to inspection, nondistended, normoactive bowel sounds, soft to palpation, non-tender and non-distended Extremity normal to inspection, full ROM and no clubbing, cyanosis or edema Skin no rashes or lesions noted General Skin Exam: no breakdown Neuro oriented x3, CN's II-XII intact bilaterally, moves all extremities, no focal motor deficits and no sensory deficits noted Sensorium / Orientation: awake and alert Speech: speech normal Psych thought process normal and affect normal Assessment & Plan Assessment/Plan (1) Intractable nausea and vomiting: (2) Acquired gastric outlet stenosis: (3) Acute GI bleeding: PLAN: #Hematemesis, concerning for UGI bleed * hasnt recurred since admission * Hb is 10.2 today * CT of the abdomen was concerning for gastric outlet obstruction * awaiting gastroenterology evaluation. I do think in light of how recurrent this hematemesis is, it is advisable for patient to have an EGD prior to discharge. * On IV protonix * aspirin on hold. * #Hyponatremia: resolved #Hypokalemia: resolved #Seizure disorder: on phenobarbital #Hyperlipidemia: on statin #Tardive dyskinesia: stable. #COPD: on breathing treatment with bronchodilators #Hypothyroidism: on synthroid #CHUY: on CPAP, but noncompliant. #Chronic hypoxic respiratory failure: on oxygen 2L by nasal canula, which is her baseline. DVT prophylaxis; SCDs. Disposition: to be discharged back to her SNF once medically stable. Charges/Coding Visit Charges Inpatient E&M: 20484 Subs Hosp L2
[2021-04-09] MEDS: Ferrous Sulfate 325 MG Tablet PO (12:34)
[2021-04-09] MEDS: Calcium (Elemental) 500 MG Tablet PO (12:35)
[2021-04-09] MEDS: Multivitamins,Therapeutic Tablet 1 TABLET PO (12:35)
[2021-04-09] MEDS: Psyllium 1 PACKET PO (13:14)
--- NOTE | 2021-04-09 15:35 | CASEMGMT ---
Social Work Note SW placed a call to Yana at [facility] and updated her that pt is not medically ready for discharge today. Plan: Return to [facility] skilled once medically cleared Cheyanne Cee MANAGER RETENTION, DEVELOPER EVANGELIST
--- NOTE | 2021-04-09 18:34 | EX.PCM.CON.G ---
HPI Consult Data Date of Consult: 04/09/21 HPI Narrative HPI Narrative: XANDER RAMIREZ, is a 70 F who presents with epigastric pain nausea and vomiting with hematemesis that started about 530 this morning. She has had this before but it has not been this many episodes. She has a history of a hiatal hernia. She states she has had hematemesis with vomiting but normally it is just once. She has never had this evaluated. She had an episode in the hospital recently but it resolved. There was followed up with Dr. Luis Alfredo gerardo. She is on baby aspirin once a day but no other anticoagulation. She is not having diarrhea. She states until 530 she was feeling fine. She is now at a rehab/retirement facility after her recent admission for COPD. She is on 4 L of oxygen. She is not complaining of COPD issues at this time. Nothing specifically is making her symptoms better or worse. She had a CT scan abdomen pelvis: The findings were as follows : hiatal hernia with the narrowing of the gastroesophageal junction. Findings suggestive of a diffuse thickening of the distal portion of the body and antral aspect of the stomach. Gastric outlet obstruction should be ruled out. [facility] Medical History Abdominal pain Acute gastritis Acute non-ST elevation myocardial infarction (NSTEMI) Anxiety Chronic constipation Chronic hypoxemic respiratory failure COPD (chronic obstructive pulmonary disease) Debility Degenerative disc disease, lumbar Depression Diverticulosis DVT (deep venous thrombosis) Dyspnea Epilepsy Essential tremor Extrapyramidal disorder Fall Gastritis Grade III hemorrhoids Hemorrhoids Hypertension Hypotension Hypothyroidism Insomnia Left arm weakness Obstructive sleep apnea On home oxygen therapy Pain, chronic Paresthesias Physical debility Polyneuropathy Rectal prolapse Restless leg syndrome Seizure disorder Sleep apnea Smoker Spinal stenosis Spinal stenosis of lumbar region Stress bladder incontinence, female Suicide attempt Takotsubo cardiomyopathy Tobacco use Vitamin D deficiency Home Medications duloxetine 20 mg PO DAILY 01/07/19 [History Last Taken 04/06/21] potassium chloride 20 meq PO BID 01/07/19 [History Last Taken 04/06/21] mirtazapine 7.5 mg tablet 7.5 mg PO QHS tablet 02/21/19 [History Last Taken 04/06/21] ropinirole 2 mg PO QHS 08/08/19 [History Last Taken 04/06/21] calcium carbonate 500 mg calcium (1,250 mg) tablet 500 mg PO BID 11/24/20 [History Last Taken 04/06/21] fluticasone furoate 100 mcg-vilanterol 25 mcg/dose inhalation powder 2 puff INHALATION DAILY 05/13/20 [History Last Taken 04/06/21] mirabegron 25 mg tablet,extended release 24 hr 25 mg PO BID tab 05/13/20 [History Last Taken 04/06/21] omeprazole 20 mg capsule,delayed release 20 mg PO DAILY cap 05/13/20 [History Last Taken 04/06/21] sennosides 8.6 mg-docusate sodium 50 mg tablet 2 tab PO BID 05/13/20 [History Last Taken 04/06/21] oxcarbazepine 600 mg tablet 600 mg PO BID #60 tab 10/13/20 [Rx Last Taken 04/06/21] phenobarbital 32.4 mg tablet 32.4 mg PO BID #60 tab 10/13/20 [Rx Last Taken 04/06/21] cholecalciferol (vitamin D3) 1,250 mcg PO WE 10/20/20 [History Last Taken 04/01/21] multivitamin 1 tab PO 1200 10/20/20 [History Last Taken 04/06/21] methadone 10 mg PO TID 5 Days #15 tab 10/25/20 [Rx Last Taken 04/07/21 06:00] ondansetron 4 mg PO Q6H PRN 01/10/21 [History Last Taken 04/07/21] Metamucil Fiber Singles 1 packet PO TID #0 ea 01/21/21 [Rx Last Taken 04/07/21 06:00] midodrine 10 mg PO TID #90 tab 01/21/21 [Rx Last Taken 04/06/21] nicotine 1 patch TOPICAL DAILY #30 ea 01/21/21 [Rx Last Taken 04/07/21] nitroglycerin 0.4 mg SUBLINGUAL Q5M PRN #30 tab 01/21/21 [Rx Last Taken Unknown] temazepam 30 mg PO QHS PRN #0 cap 01/21/21 [Rx Last Taken 04/05/21] hydrocortisone [Procto-Med HC] 1 applic DC DAILY PRN #30 g 01/31/21 [Rx Last Taken Unknown] aspirin 81 mg PO DAILY@1200 04/07/21 [History Last Taken 04/06/21] atorvastatin 40 mg PO QHS 04/07/21 [History Last Taken 04/06/21] benztropine 2 mg PO BID 04/07/21 [History Last Taken 04/06/21] brimonidine 1 drp EACH EYE BID 04/07/21 [History Last Taken 04/06/21] docusate sodium [Colace] 100 mg PO DAILY 04/07/21 [History Last Taken 04/06/21] ferrous sulfate [FeroSul] 325 mg PO QODAY 04/07/21 [History Last Taken 04/01/21] levothyroxine 25 mcg PO DAILY 04/07/21 [History Last Taken 04/06/21] polyethylene glycol 3350 17 g PO DAILY 04/07/21 [History Last Taken 04/06/21] Allergy/AdvReac Type Severity Reaction Status Date / Time codeine Allergy Mild HIVES Verified 04/07/21 09:33 Penicillins Allergy Anaphylaxis Verified 04/07/21 09:33 Family History Mother Diabetes Heart disease Hypertension CAD (coronary artery disease) CVA (cerebral vascular accident) Thyroid disorder Father Colon cancer Surgical History History of bilateral carpal tunnel release History of bilateral cataract extraction History of blepharoplasty History of cystoscopy History of esophagogastroduodenoscopy (EGD) (~03/07/19) History of left heart catheterization (01/16/21) History of right hip replacement History of right salpingo-oophorectomy S/P appendectomy S/P laparoscopic cholecystectomy Status post ORIF of fracture of ankle Social History household members: none housing: apartment pets and animals: Yes (cat) pets and animals: cat(s) Smoking Status: Former smoker Tobacco: How many years used: 50 alcohol intake: never substance use type: does not use well-balanced diet: rarely or never do you feel safe at home: Yes ROS Review of Systems ROS Unobtainable: other Constitutional Constitutional: Denies fatigue, fever(s), poor appetite, weight gain or weight loss ENT HEENT: Denies mouth lesions Cardiovascular Cardiovascular: Denies abdominal bloating, abdominal edema or abdominal pain Respiratory/Chest Respiratory/Chest: Denies change in mental status, change in phlegm color, chest congestion or chest tightness Gastrointestinal Gastrointestinal: Denies belching, bloating, change in bowel habits, change in stool character, chewing difficulty, coffee ground emesis, constipation, cramping, diarrhea, dyspepsia, dysphagia, early satiety, excessive flatus, fecal incontinence, heartburn, hematemesis, hematochezia, hemorrhoids, loose stools, melena, nausea, odynophagia, rectal bleeding, tenesmus, vomiting or weight changes Genitourinary Genitourinary: Denies abdominal discomfort, burning urination or itching Musculoskeletal Musculoskeletal: Reports as per HPI; Denies muscle weakness or myalgias Integumentary Integumentary: Denies jaundice Neurologic Neurologic: Denies lack of coordination or weakness Psychiatric Psychiatric: Denies confusion, depression, memory loss, mood swings, paranoia or suicidal ideation Endocrine Endocrinology: Denies systems reviewed and no addt'l complaints, except as documented Hematologic/Lymphatic Hematologic/Lymphatic: Denies anemia, easy bleeding, easy bruising or lymphadenopathy Allergic/Immunologic Allergic/Immunologic: Denies systems reviewed and no addt'l complaints, except as documented Physical Exam Const alert General Appearance: cooperative Orientation / Consciousness: oriented to person HEENT hearing grossly normal bilaterally Head and Scalp: normal to inspection Face and Sinus: face symmetric Nose: external nose normal Mouth: oral and palatal mucosa normal Eyes conjunctivae normal General Eye: normal appearance of both eyes Neck full ROM General: normal visual inspection Lymph Lymphatic: no lymphadenopathy noted Chest inspection of chest normal and palpation of chest normal Chest: symmetrical chest wall rise Resp normal respiratory effort Effort and Inspection: able to speak in complete sentences Cardio regular rate GI non-distended Percussion: normal to percussion Rectal Exam: deferred Neuro Speech: speech normal Gait (Neuro): normal gait Lab / Micro Data Result Diagrams: 04/09/21 08:18 04/09/21 08:18 Labs: Laboratory Results - last 24 hr 04/09/21 08:18: WBC 6.8, RBC 3.46 L, Hgb 10.2 L, Hct 32.7 L, MCV 94.5, MCH 29.5, MCHC 31.2 L, RDW Std Deviation 47.8 H, RDW Coeff of Jordin 13.8, Plt Count , MPV 9.0, Immature Gran % (Auto) 0.400, Neut % (Auto) 59.9, Lymph % (Auto) 21.7, [place] % (Auto) 7.6, Eos % (Auto) 9.5 H, Baso % (Auto) 0.9, Absolute Neuts (auto) 4.1, Absolute Lymphs (auto) 1.48, Nucleated RBC % 0, Platelet Estimate ADEQUATE 04/09/21 08:18: Sodium 136, Potassium 3.7, Chloride 102, Carbon Dioxide 28.0, Anion Gap 6, BUN 4 L, Creatinine 0.33 L, Estim Creat Clear Calc 46.43, Est GFR (MDRD) Af Amer 251, Est GFR (MDRD) Non-Af 207, BUN/Creatinine Ratio 12.0, Glucose 109 H, Calcium 8.2 L Assessment & Plan Assessment/Plan (1) Acute GI bleeding: PLAN: She will need to undergo an upper endoscopy to evaluate her upper GI tract. The differential diagnosis does include a Nadine-Bonilla tear causing upper GI bleed. Also a different diagnosis peptic ulcer disease in the setting of a patient that takes NSAIDs has a decreased hemoglobin. (2) Acquired gastric outlet stenosis: PLAN: I think is less likely she has gastric outlet stenosis however it is on differential diagnosis.
[2021-04-09] MEDS: Atorvastatin Calcium 40 MG Tablet PO (21:14)
[2021-04-09] MEDS: Temazepam 15 MG Capsule 30 MG PO (21:14)
[2021-04-09] MEDS: Pramipexole Di-HCl 1 MG Tablet PO (21:14)
[2021-04-09] MEDS: Mirtazapine 15 MG Tablet 7.5 MG PO (21:14)
[2021-04-10] VITALS (13 sets, daily range): BP systolic 90–173; BP diastolic 54–83; PULSE 70–88; RESP 14–18; TEMP 36.6–37.3; O2SAT 96–99
--- NOTE | 2021-04-10 | IMM_PTH ---
PATIENT: XANDER RAMIREZ LOC: MS3 U#:[id number] AGE/SX: 70/F ROOM: [facility] [place] RE04/07/[address]: Dr. Silva Greene MD : 1950 BED: 1 DIS: 04/10/2021 SPEC #: [id number] RECD: 04/14/21 12:27 STATUS: DWAYNE REQ #: [id number] DANNY: 04/10/21 00:[address]: Ra Luis Alfredohsaan DEPT: IMMUNOHISTOCHEMISTRY RECD BY: Vanessa Cabrera ENTERED: 04/14/21 12:28 SP TYPE: IMMUNO OTHR DR: DO Dr. Silva Decker MD Dr. Paul Nielsen, MD Tissues: Gastric mucous membrane Procedures: P53 (initial) KI-67 (add) PHYSICIAN & INSTITUTION [place] [address] SPECIMEN INFORMATION: Tissue Source: GE junction biopsy Clinical Info: Acute GI bleeding Specimen Number: [id number] CPT code: 66691, 23848 METHODOLOGY: Deparaffinized sections of prefer/formalin-fixed tissue or PAP/DQ stained slides are incubated with monoclonal/polyclonal antibodies/oligonucleotide probes. Localization is made via biotin free immunoperoxidase method. Appropriate controls are performed and reacted as expected. Results on target cell population are indicated in the following table: RESULTS: ANTIBODY / CLONE RESULT P53 (DO-7) negative Ki-67 (30-9) positive, very low These tests were developed and their performance characteristics determined by [facility]. They may not have been cleared or approved by the U.S. Food and Drug Administration. The FDA has determined that such clearance or approval is not necessary. The above immunohistochemical/dualISH markers are ordered and reviewed by the Pathologist. INTERPRETATION: GE junction, biopsy: Negative for dysplasia. ANDIE:ethan 04/14/2021
--- NOTE | 2021-04-10 | GASB_PTH ---
PATIENT: XANDER RAMIREZ LOC: MS3 U#:[id number] AGE/SX: 70/F [place] [facility] [place]04/07/[address]: Dr. Silva Greene MD : 1950 BED: 1 DIS: 04/10/2021 SPEC #: [id number] RECD: 04/10/21 14:20 STATUS: DWAYNE REQ #: [id number] DANNY: 04/10/21 00:[address]: Jesus Lobato DEPT: SURGICAL PATHOLOGY RECD BY: Aram Noel ENTERED: 04/13/21 08:06 SP TYPE: Gastric Bx OTHR DR: DO Dr. Silva Decker MD Dr. 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 Focal mild chronic inflammation. Negative for dysplasia. See comment. ANDIE:ethan 04/14/2021 COMMENT Alcian blue/PAS stain with matched control is used in the evaluation of the specimen. Immunohistochemistry ([id number]) for P53 and Ki-67 will be performed and results will be reported separately. MICROSCOPIC DESCRIPTION Slides are reviewed. GROSS DESCRIPTION Received in fixative is one container labeled with the patient's name and designated GE junction biopsy. The specimen consists of multiple irregular fragments of light johnson soft tissue that in aggregate measure 1 x 0.5 x 0.1 cm. The specimen is totally submitted in one cassette. / ANDIE:ethan 04/13/2021 TC:5 CPT: 91045, 87043
[2021-04-10] MEDS: 0.9% Saline Lock 10 ML Syringe IV (05:40)
[2021-04-10] MEDS: Levothyroxine 25 MCG TABLET PO (05:40)
[2021-04-10] MEDS: Methadone 10 MG Tablet PO ×2 (05:40→15:30)
[2021-04-10] MEDS: 0.9% Normal Saline 1,000 ML 100 ML IV (05:41)
[2021-04-10] MEDS: Albuterol 2.5 MG/3 ML VIAL.NEB. INHALATION (06:51)
[2021-04-10] MEDS: Budesonide Respules 0.5 MG/2 ML AMPUL.NEB. INHALATION (06:51)
[2021-04-10 08:01] LABS: Hematocrit 31.6 % (37-47); Hemoglobin 10.3 g/dL (12.0-15.0); Mean Corp Hgb Conc 32.6 g/dL (32-36); Mean Corpuscular Hgb 30.4 pg (27.0-32.0); Mean Corpuscular Volume 93.2 fL (81-99); Mean Platelet Vol. 8.8 fl (6.2-12.0); Platelet Count 273 K/mm3 (150-450); RBC Distribution Width CV 13.6 % (11.6-14.6); RBC Distribution Width SD 46.4 fl (35.1-43.9); Red Blood Count 3.39 M/mm3 (4.2-5.4); White Blood Count 8.5 K/mm3 (4.4-11.0)
--- NOTE | 2021-04-10 11:08 | CASEMGMT ---
Social Work Note SW updated that pt is to have EGD today and if that is clear pt to discharge back to [facility] today. GRAHAM placed a call to Yana at [facility] and updated her. GRAHAM faxed updated clinicals to [facility]. GRAHAM received call from pt's YOSHI Chen requesting update. SW provided update. Plan: Return to [facility] skilled once medically cleared Cheyanne Cee MEDICAL HOUSEKEEPER, BANDAGE WINDING MACHINE OPERATOR
--- NOTE | 2021-04-10 13:45 | OP.EGD_ITS ---
Patient Name: Bela Sandoval Procedure Date: 04/10/2021 10:52 AM Date of : 1950 Age: 70 Procedure: Upper GI endoscopy Indications: Acute post hemorrhagic anemia Providers: Jesus Lobato DO Medicines: See the Anesthesia note for documentation of the administered medications Patient Profile: This is a 70 year old female. Refer to note in patient chart for documentation of history and physical. Patient has symptoms. Complications: No immediate complications. Procedure: Pre-Anesthesia Assessment: - Prior to the procedure, a History and Physical was performed, and patient medications and allergies were reviewed. The patient is competent. The risks and benefits of the procedure and the sedation options and risks were discussed with the patient. All questions were answered and informed consent was obtained. Patient identification and proposed procedure were verified by the physician in the pre-procedure area. Mental Status Examination: alert and oriented. Airway Examination: normal oropharyngeal airway and neck mobility. Respiratory Examination: clear to auscultation. CV Examination: normal. Prophylactic Antibiotics: The patient does not require prophylactic antibiotics. Prior Anticoagulants: The patient has taken no previous anticoagulant or antiplatelet agents. After reviewing the risks and benefits, the patient was deemed in satisfactory condition to undergo the procedure. The anesthesia plan was to use moderate sedation / analgesia (conscious sedation). Immediately prior to administration of medications, the patient was re-assessed for adequacy to receive sedatives. The heart rate, respiratory rate, oxygen saturations, blood pressure, adequacy of pulmonary ventilation, and response to care were monitored throughout the procedure. The physical status of the patient was re-assessed after the procedure. After obtaining informed consent, the endoscope was passed under direct vision. Throughout the procedure, the patient's blood pressure, pulse, and oxygen saturations were monitored continuously. The gastroscope was introduced through the mouth, and advanced to the second part of duodenum. The upper GI endoscopy was accomplished without difficulty. The patient tolerated the procedure well. Moderate Sedation: Moderate (conscious) sedation was personally administered by an anesthesia professional. The following parameters were monitored: oxygen saturation, heart rate, blood pressure, and response to care. Total physician intraservice time was 2 minutes. Scope In: 1:32:06 PM Scope Out: 1:39:49 PM Total Procedure Duration Time 0 hours 7 minutes 43 seconds Findings: LA Grade D (one or more mucosal breaks involving at least 75% of esophageal circumference) esophagitis with bleeding was found 34 to 35 cm from the incisors. Biopsies were taken with a cold forceps for histology. Verification of patient identification for the specimen was done. Estimated blood loss was minimal. A large hiatal hernia was present. No other significant abnormalities were identified in a careful examination of the stomach. The second portion of the duodenum was normal. Impression: - LA Grade D reflux esophagitis. Biopsied. - Large hiatal hernia. - Normal second portion of the duodenum. Recommendation: - Discharge patient to home. - Resume previous diet today. - Use Protonix (pantoprazole) 40 mg PO BID for 8 weeks. - Continue present medications. Procedure Code(s): --- Professional --- 79605, Esophagogastroduodenoscopy, flexible, transoral; with biopsy, single or multiple CPT copyright 2017 [employer]. All rights reserved. The codes documented in this report are preliminary and upon death surveys coder review may be revised to meet current compliance requirements. Jesus Lobato DO 04/10/2021 1:44:59 PM This report has been signed electronically. Number of Addenda: 1 Note Initiated On: 04/10/2021 10:52 AM Addendum Number: 1 Addendum Date: 02/18/2022 4:42:53 PM MAC was used instead of moderate sedation for this patient. Jesus Lobato DO 02/18/2022 4:42:58 PM This report has been signed electronically.
--- NOTE | 2021-04-10 13:46 | OP.CCLET_ITS ---
02/18/2022 Saulo Pagan MD [address] [id number] Re : Upper GI endoscopy procedure for Bela Sandoval Dear Dr. Pagan This procedure was performed on Saturday, April 10, 2021. My impressions and recommendations are as follows: Impressions : - LA Grade D reflux esophagitis. Biopsied. - Large hiatal hernia. - Normal second portion of the duodenum. Recommendations : - Discharge patient to home. - Resume previous diet today. - Use Protonix (pantoprazole) 40 mg PO BID for 8 weeks. - Continue present medications. My findings are described in the full procedure note, which is enclosed. If I can be of further assistance, please feel free to contact me at . Sincerely, Jesus Lobato, 04/10/2021 1:44:59 PM This report has been signed electronically.
[2021-04-10] MEDS: Calcium (Elemental) 500 MG Tablet PO ×2 (15:22→17:35)
[2021-04-10] MEDS: DULoxetine Hcl 20 MG Capsule PO (15:22)
[2021-04-10] MEDS: Polyethylene Glycol 3350 17 GM PACKET PO (15:22)
[2021-04-10] MEDS: Multivitamins,Therapeutic Tablet 1 TABLET PO (15:22)
[2021-04-10] MEDS: Mirabegron 25 MG TAB.ER.24H PO (15:23)
[2021-04-10] MEDS: Psyllium 1 PACKET PO (15:23)
[2021-04-10] MEDS: Benztropine 2 MG Tablet PO (15:24)
[2021-04-10] MEDS: Docusate Sodium 100 MG Capsule PO (15:24)
[2021-04-10] MEDS: OXcarbazepine 600 MG Tablet PO (15:25)
[2021-04-10] MEDS: BRIMONIDINE 0.2% 5ML BOTTLE 1 DRP EACH EYE (15:30)
--- NOTE | 2021-04-10 16:07 | DS.PCM_ITS ---
Providers Date of Admission: 04/07/21 Primary Care Physician: Dr. Saulo Pagan MD Consultations 04/07/21 15:08 Consult: Gastroenterology Routine Consulting Provider: [facility] Reason for Consult: hematemesis EMERGENT Consult: No MD Notified: Yes Date Notified: 04/07/21 Time Notified: 14:51 Method of Notification: Verbal Reason For Visit: HEMATEMSIS . ABD PAIN Diagnosis Discharge Diagnosis (1) Acute GI bleeding: Status: Acute Code(s): K92.2 - Gastrointestinal hemorrhage, unspecified (2) Acquired gastric outlet stenosis: Status: Acute Code(s): K31.1 - Adult hypertrophic pyloric stenosis Medications at Discharge Home Medications duloxetine 20 mg PO DAILY 01/07/19 potassium chloride 20 meq PO BID 01/07/19 mirtazapine 7.5 mg tablet 7.5 mg PO QHS tablet 02/21/19 ropinirole 2 mg PO QHS 08/08/19 calcium carbonate 500 mg calcium (1,250 mg) tablet 500 mg PO BID 05/13/20 fluticasone furoate 100 mcg-vilanterol 25 mcg/dose inhalation powder 2 puff INHALATION DAILY 05/13/20 mirabegron 25 mg tablet,extended release 24 hr 25 mg PO BID tab 05/13/20 sennosides 8.6 mg-docusate sodium 50 mg tablet 2 tab PO BID 05/13/20 oxcarbazepine 600 mg tablet 600 mg PO BID #60 tab 10/13/20 phenobarbital 32.4 mg tablet 32.4 mg PO BID #60 tab 10/13/20 cholecalciferol (vitamin D3) 1,250 mcg PO WE 10/20/20 multivitamin 1 tab PO 1200 10/20/20 methadone 10 mg PO TID 5 Days #15 tab 10/25/20 ondansetron 4 mg PO Q6H PRN 01/10/21 Metamucil Fiber Singles 1 packet PO TID #0 ea 01/21/21 midodrine 10 mg PO TID #90 tab 01/21/21 nicotine 1 patch TOPICAL DAILY #30 ea 01/21/21 nitroglycerin 0.4 mg SUBLINGUAL Q5M PRN #30 tab 01/21/21 temazepam 30 mg PO QHS PRN #0 cap 01/21/21 hydrocortisone [Procto-Med HC] 1 applic MI DAILY PRN #30 g 01/31/21 aspirin 81 mg PO DAILY@1200 04/07/21 atorvastatin 40 mg PO QHS 04/07/21 benztropine 2 mg PO BID 04/07/21 brimonidine 1 drp EACH EYE BID 04/07/21 docusate sodium [Colace] 100 mg PO DAILY 04/07/21 ferrous sulfate [FeroSul] 325 mg PO QODAY 04/07/21 levothyroxine 25 mcg PO DAILY 04/07/21 polyethylene glycol 3350 17 g PO DAILY 04/07/21 pantoprazole 40 mg PO BID #60 tab 04/10/21 Hospital Course Operations None Procedures EGD Summary of Care Provided Minutes Spent on Discharge: 35 Hospital Course: Patient is a 70-year-old female with an extensive past medical history as outlined and frequent admissions recently to the hospital was admitted via the ED on 04/07/2021 from [facility] care facility with a complaint of nausea and vomiting and hematemesis. She also complained of some mid abdominal pain. Patient recently been in the hospital for similar symptoms and had had hematemesis but this subsequently resolved and she was post follow-up with gastroenterology on outpatient basis. She had however you to follow-up when the symptoms recurred in the standard care facility so she was brought in. On admission, hemoglobin was 12 and chemistry was significant for sodium of 129 and potassium of 3.4. CT of the abdomen and pelvis showed a hiatal hernia with narrowing of the gastroesophageal junction with diffuse thickening of the distal portion of the body and antral aspect of the stomach as well as suspected gastric outlet obstruction. She was admitted and managed for hematemesis and hydrated with IV fluids. Gastroenterology was consulted. She had EGD on 04/10/2021 which showed reflux esophagitis which was biopsied with a large hia muriel hernia and normal second portion of the duodenum. Patient remained stable and was discharged back [facility] on p.o. Protonix 40 mg twice daily for 8 weeks. She is to follow-up with her primary care doctor and is follow-up with gastroenterology on outpatient basis. Patient was seen and examined prior to discharge. He felt well and had no complaints. Review of systems otherwise negative. Labs and vitals reviewed. Home medication reviewed and reconciled. Physical Exam Const alert, oriented x3, no apparent distress and well nourished General Appearance: cooperative, well kempt and well developed Orientation / Consciousness: awake, oriented to person, oriented to place and oriented to time Exam Limitations: no limitations HEENT normocephalic, head/scalp atraumatic, hearing grossly normal bilaterally and moist oral mucous membranes Eyes PERRL, EOMs intact bilaterally and conjunctivae normal Neck nuchal rigidity, no lymphadenopathy, supple, thyroid normal and no carotid bruits General: trachea midline Resp normal respiratory effort, no retractions, no use of accessory muscles and clear to auscultation bilaterally Auscultation: Negative for rales, rhonchi or wheezes Cardio regular rate, regular rhythm, S1 normal heart sound, S2 normal heart sound, no murmurs, no rub and no gallops GI normal to inspection, nondistended, normoactive bowel sounds, soft to palpation, non-tender and non-distended Extremity normal to inspection, full ROM and no clubbing, cyanosis or edema Skin no rashes or lesions noted General Skin Exam: no breakdown Neuro oriented x3, CN's II-XII intact bilaterally, moves all extremities, no focal motor deficits and no sensory deficits noted Sensorium / Orientation: awake and alert Speech: speech normal Psych thought process normal and affect normal Weight / BMI Weight Weight: 162 lb 11.218 oz Body Mass Index (BMI) 27.1 ABG / Lab / Microbiology Data Result Diagrams: 04/10/21 07:49 04/09/21 08:18 Laboratory: Laboratory Results - last 24 hr 04/10/21 07:49: WBC 8.5, RBC 3.39 L, Hgb 10.3 L, Hct 31.6 L, MCV 93.2, MCH 30.4, MCHC 32.6, RDW Std Deviation 46.4 H, RDW Coeff of Jordin 13.6, Plt Count 273, MPV 8.8 04/10/21 07:49: TSH 0.90 D/C Instructions Discharge Diet: Low fat / Low cholesterol Discharge Activity: Return to Normal Activity Weight Bearing Status: Weight bearing as tolerated Call your doctor if you observe: Fever of 101 or Higher, Shortness of breath, Swelling in the ankles and Increased palpitations (irregular heartbeat) Meaningful Use Info Meaningful Use Diagnoses (Choose all that apply): None applicable Discharge Plan Admission Admit Date/Time: 04/07/21 14:41 Primary Reason for Your Visit: hematemesis Attending Provider: Silva Greene Primary Care Provider: Saulo Pagan Instructions Patient Instructions: Esophagitis, Discharge Instructions- Eating ..., ED GERD (Adult) Discharge Orders/Prescriptions Prescriptions: New pantoprazole 40 mg tablet,delayed release (DR/EC) 40 mg PO BID Qty: 60 RF: 1 Continued Myrbetriq 25 mg tablet extended release 24 hr 25 mg PO BID RF: 0 sennosides-docusate sodium [Senexon-S] 8.6-50 mg tablet 2 tab PO BID RF: 0 calcium carbonate [Oyster Shell Calcium] 500 mg calcium (1,250 mg) tablet 500 mg PO BID RF: 0 fluticasone furoate-vilanterol 100-25 mcg/dose blister with device 2 puff INHALATION DAILY RF: 0 oxcarbazepine 600 mg tablet 600 mg PO BID Qty: 60 RF: 3 phenobarbital 32.4 mg tablet 32.4 mg PO BID Qty: 60 RF: 3 potassium chloride 20 MEQ tablet 20 meq PO BID RF: 0 duloxetine 20 MG capsule,delayed release(DR/EC) 20 mg PO DAILY RF: 0 mirtazapine 7.5 mg tablet 7.5 mg PO QHS RF: 0 ropinirole 2 MG tablet 2 mg PO QHS RF: 0 multivitamin Tablet 1 tab PO 1200 RF: 0 cholecalciferol (vitamin D3) 1,250 mcg (50,000 unit) capsule 1,250 mcg PO WE RF: 0 methadone 10 mg tablet 10 mg PO TID 5 Days Qty: 15 RF: 0 ondansetron 4 mg Tablet,Disintegrating 4 mg PO Q6H PRN (Reason: Nausea) RF: 0 nitroglycerin 0.4 mg Tablet, Sublingual 0.4 mg sublingual Q5M PRN (Reason: CHEST PAIN) Qty: 30 RF: 0 Metamucil Fiber Singles 3.4 gram Powder In Packet 1 packet PO TID Qty: 0 RF: 0 temazepam 30 mg Capsule 30 mg PO QHS PRN (Reason: Sleep) Qty: 0 RF: 0 nicotine 21 mg/24 hr patch 24 hour 1 patch TOPICAL DAILY Qty: 30 RF: 0 midodrine 10 mg tablet 10 mg PO TID Qty: 90 RF: 0 hydrocortisone [Procto-Med HC] 2.5 % cream with perineal applicator 1 applic MI DAILY PRN (Reason: hemorrhoids) Qty: 30 RF: 0 levothyroxine 25 mcg Tablet 25 mcg PO DAILY RF: 0 brimonidine 0.2 % Drops 1 drp EACH EYE BID RF: 0 aspirin 81 mg Tablet,Chewable 81 mg PO DAILY@1200 RF: 0 atorvastatin 40 mg tablet 40 mg PO QHS RF: 0 polyethylene glycol 3350 17 gram powder in packet 17 g PO DAILY RF: 0 ferrous sulfate [FeroSul] 325 mg (65 mg iron) tablet 325 mg PO QODAY RF: 0 benztropine 2 mg tablet 2 mg PO BID RF: 0 docusate sodium [Colace] 100 mg capsule 100 mg PO DAILY RF: 0 Discontinued omeprazole 20 mg capsule,delayed release(DR/EC) 20 mg PO DAILY RF: 0 Referrals / Follow Up: Saulo Pagan MD [Primary Care Provider] - Within 2 Weeks Jesus Lobato DO [STAFF PHYSICIAN] - Within 2 Weeks Disposition Disposition (needs filled in before D/C Order can be placed): Care Home Facility Charges/Coding Visit Charges Inpatient E&M: 95350 Disch Hosp
--- NOTE | 2021-04-10 16:34 | PCM.TXEXTCAR ---
Diet 04/10/21 15:17 Diet: Regular - General Is pt able to select menu?: No Wound(s) hemorroids: Wound Type: hemorroids Problem/Diagnosis (1) Acute GI bleeding: Status: Acute (2) Acquired gastric outlet stenosis: Status: Acute Allergies/Procedures Done in Hospital Allergies codeine Allergy (Mild, Verified 04/07/21 09:33) HIVES Penicillins Allergy (Verified 04/07/21 09:33) Anaphylaxis Type of Care/Length of Stay Estimated LOS: Convalescent Care Less Than 30 days Type of Care Needed: Skilled Rehab Potential: Fair Prognosis: Fair Additional Orders/Day of Discharge Day of Discharge: 04/10/21 Discharge Plan Admission Admit Date/Time: 04/07/21 14:41 Primary Reason for Your Visit: hematemesis Attending Provider: Silva Greene Primary Care Provider: Saulo Pagan Instructions Patient Instructions: Esophagitis, Discharge Instructions- Eating ..., ED GERD (Adult) Discharge Orders/Prescriptions Prescriptions: New pantoprazole 40 mg tablet,delayed release (DR/EC) 40 mg PO BID Qty: 60 RF: 1 Continued Myrbetriq 25 mg tablet extended release 24 hr 25 mg PO BID RF: 0 sennosides-docusate sodium [Senexon-S] 8.6-50 mg tablet 2 tab PO BID RF: 0 calcium carbonate [Oyster Shell Calcium] 500 mg calcium (1,250 mg) tablet 500 mg PO BID RF: 0 fluticasone furoate-vilanterol 100-25 mcg/dose blister with device 2 puff INHALATION DAILY RF: 0 oxcarbazepine 600 mg tablet 600 mg PO BID Qty: 60 RF: 3 phenobarbital 32.4 mg tablet 32.4 mg PO BID Qty: 60 RF: 3 potassium chloride 20 MEQ tablet 20 meq PO BID RF: 0 duloxetine 20 MG capsule,delayed release(DR/EC) 20 mg PO DAILY RF: 0 mirtazapine 7.5 mg tablet 7.5 mg PO QHS RF: 0 ropinirole 2 MG tablet 2 mg PO QHS RF: 0 multivitamin Tablet 1 tab PO 1200 RF: 0 cholecalciferol (vitamin D3) 1,250 mcg (50,000 unit) capsule 1,250 mcg PO WE RF: 0 methadone 10 mg tablet 10 mg PO TID 5 Days Qty: 15 RF: 0 ondansetron 4 mg Tablet,Disintegrating 4 mg PO Q6H PRN (Reason: Nausea) RF: 0 nitroglycerin 0.4 mg Tablet, Sublingual 0.4 mg sublingual Q5M PRN (Reason: CHEST PAIN) Qty: 30 RF: 0 Metamucil Fiber Singles 3.4 gram Powder In Packet 1 packet PO TID Qty: 0 RF: 0 temazepam 30 mg Capsule 30 mg PO QHS PRN (Reason: Sleep) Qty: 0 RF: 0 nicotine 21 mg/24 hr patch 24 hour 1 patch TOPICAL DAILY Qty: 30 RF: 0 midodrine 10 mg tablet 10 mg PO TID Qty: 90 RF: 0 hydrocortisone [Procto-Med HC] 2.5 % cream with perineal applicator [address] DAILY PRN (Reason: hemorrhoids) Qty: 30 RF: 0 levothyroxine 25 mcg Tablet 25 mcg PO DAILY RF: 0 brimonidine 0.2 % Drops 1 drp EACH EYE BID RF: 0 aspirin 81 mg Tablet,Chewable 81 mg PO DAILY@1200 RF: 0 atorvastatin 40 mg tablet 40 mg PO QHS RF: 0 polyethylene glycol 3350 17 gram powder in packet 17 g PO DAILY RF: 0 ferrous sulfate [FeroSul] 325 mg (65 mg iron) tablet 325 mg PO QODAY RF: 0 benztropine 2 mg tablet 2 mg PO BID RF: 0 docusate sodium [Colace] 100 mg capsule 100 mg PO DAILY RF: 0 Discontinued omeprazole 20 mg capsule,delayed release(DR/EC) 20 mg PO DAILY RF: 0 Referrals / Follow Up: Saulo Pagan MD [Primary Care Provider] - Within 2 Weeks Jesus Lobato DO [STAFF PHYSICIAN] - Within 2 Weeks Disposition Disposition (needs filled in before D/C Order can be placed): Alf Facility
--- NOTE | 2021-04-10 17:10 | CASEMGMT ---
Addendum entered by Cheyanne Cee 04/10/21 17:36: Correction, under intermediate level of care. Original Note: Social Work Note Pt to discharge back to [facility] skilled today. GRAHAM placed a call to Yana at [facility] and updated her. GRAHAM faxed completed discharge paperwork to [facility] including transfer to extended care facility, signed medication list, any scripts, and COVID test/tool. Original in SNF folder and copy on pt's chart. SW in to speak with pt. SW updated pt that she will be discharged back to [facility] today. SW asked pt if this worker could call her son to update. Pt states she just tried to call Samson and it went to [facility] and Yaakov is recovering from surgery. SW informed pt that this worker will try both of them to see if this worker can get a hold of one of them. Pt states understanding, gave permission for this worker to call Yaakov and Samson. GRAHAM spoke with RN, pt to transport via cot. GRAHAM accessed trip assist and arranged transportation via cot for 6:30pm. Transportation form completed and placed on SNF folder and copy on pt's chart. GRAHAM updated RN and pt on transportation time. GRAHAM placed a call to Yana at [facility] and updated her on transportation time. GRAHAM asked Yana if it was ok PT/OT wasn't ordered for pt and Yana states that is ok. GRAHAM placed a call to both pt's son Samson and Yaakov and updated him that pt will be discharged back to [facility] today at 6:30pm. GRAHAM placed a call to pt's CM Beata Chen and left message that pt discharged to [facility] today. GRAHAM faxed discharge paperwork to Beata at [facility]. Plan: Return to [facility] skilled today under convalescent care with Physician's transporting pt via cot at 6:30pm Cheyanne Cee MSW, SCOUT
[2021-04-10] MEDS: Potassium Chloride Oral Tablet 20 MEQ PO (17:34)
[2021-04-10] MEDS: Midodrine HCl 5 MG Tablet 10 MG PO (17:35)
== END 2021-04-10 18:25 | disposition skilled nursing facility (03) ==
LOC: ED 13:48 → MS3 14:29
PROVIDERS: Anesthesiology; Internal Medicine Gastroenterology; Admitting Provider Internal Medicine; Emergency Provider Emergency Medicine; PCP Family Medicine; Visit Provider Student in an Organized Health Care Education/Training Program
PROC: 0DJ08ZZ Inspection of Upper Intestinal Tract, Via Natural or Artificial Opening Endoscopic (ICD-10-PCS; CPT 43235; principal; 2021-04-10 12:40)
DX: K21.01 Gastro-esophageal reflux disease with esophagitis, with bleeding (principal); K44.9 Diaphragmatic hernia without obstruction or gangrene; J44.9 Chronic obstructive pulmonary disease, unspecified; Z23 Encounter for immunization; M51.36 Other intervertebral disc degeneration, lumbar region; I25.2 Old myocardial infarction; J96.11 Chronic respiratory failure with hypoxia; E03.9 Hypothyroidism, unspecified; G47.33 Obstructive sleep apnea (adult) (pediatric); G25.0 Essential tremor; G62.9 Polyneuropathy, unspecified; G25.81 Restless legs syndrome; G40.909 Epilepsy, unspecified, not intractable, without status epilepticus; E55.9 Vitamin D deficiency, unspecified; E78.5 Hyperlipidemia, unspecified; E87.6 Hypokalemia; E87.1 Hypo-osmolality and hyponatremia; G24.01 Drug induced subacute dyskinesia; G89.29 Other chronic pain; Z79.899 Other long term (current) drug therapy; Z79.51 Long term (current) use of inhaled steroids; Z79.82 Long term (current) use of aspirin; Z86.718 Personal history of other venous thrombosis and embolism; Z79.890 Hormone replacement therapy; Z87.891 Personal history of nicotine dependence; Z91.19 Patient's noncompliance with other medical treatment and regimen; D62 Acute posthemorrhagic anemia; K31.1 Adult hypertrophic pyloric stenosis
CPT/HCPCS: 43239; 36415; 74177; 80048; 80053; 83605; 83690; 84443; 84484; 85025; 85027; 85610; 85730; 87426; 88305; 88313; 88341; 88342; 93005; 94640; 96361; 96365; 96366; 96372; 96375; 96376; 99218; 99285; G0008; J7030; Q9967; 90686; A4216; G0378; J2405; J3490

== ENCOUNTER 2021-04-14 06:27 | Inpatient (IN) | payer MEDICARE, MEDICAID, SELFPAY ==
[2021-04-14] VITALS (18 sets, daily range): BP systolic 83–188; BP diastolic 40–111; PULSE 57–113; RESP 14–22; TEMP 36.1–37.5; O2SAT 92–100; BMI 30.7; BMI 26.9
--- NOTE | 2021-04-14 06:33 | CT_ITS ---
HISTORY: Pain. TECHNIQUE: Helically acquired images were obtained of the abdomen and pelvis without oral or IV contrast as per renal stone protocol. A radiation dose optimization technique was used for this scan. # of images incl. paperwork: 461. COMPARISON: 04/07/2021. FINDINGS: LUNG BASES: Minimal scarring.. BOWEL: Small hiatal hernia. Persistent fluid distention of the stomach. Bowel nondilated. Appendix not identified. Moderate stool in the colon. Anorectal wall thickening again seen. PERITONEUM: No significant ascites. LIVER/BILIARY TRACT: Unremarkable liver.Cholecystectomy. SPLEEN: Non-enlarged. PANCREAS: Atrophic with small calcifications. KIDNEYS AND URETERS: No nephrolithiasis or obstructing ureterolithiasis. ADRENAL GLANDS: 1.4 cm left adrenal adenoma. VESSELS: No abdominal aortic aneurysm. Atherosclerosis. PELVIC ORGANS: Absent uterus. BONES: Right hip arthroplasty in place. CT/Abdomen/Pelvis without Cont IMPRESSION: Anorectal wall thickening, which may be inflammatory with underlying lesion not excluded. Moderate stool in the colon. Persistent distention of the stomach. Individualized dose optimization techniques were used for this CT. at 0806 Reported and signed by: Alyx Deutsch MD Electronically Signed: Alyx Deutsch MD at 8:05 EDT Tel , Service support ,
--- NOTE | 2021-04-14 06:40 | EDS_ITS ---
HPI HPI - GI History of Present Illness Chief Complaint: GI Bleed Narrative Narrative: Patient presenting for evaluation due to concern for a GI bleed. Patient resides in a [facility] and has an extensive medical history. Patient has a underlying history of COPD, chronic respiratory failure, epilepsy, hypertensive heart disease with cardiomyopathy, adult failure to thrive, gastritis and esophagitis with GERD and hiatal hernia, past history of GI bleed, bleeding hemorrhoids, hypothyroidism, and recent hospital admission. Patient was actually admitted to the hospital recently secondary to a similar presentation and an upper endoscopy that showed esophagitis secondary to chronic reflux and a hiatal hernia. Patient apparently tonight had an onset of severe nausea and vomiting and upper abdominal pain. She reports that it is a severe sharp stabbing abdominal pain and episodes of emesis associated with coffee grounds. Patient also reports that she has been dealing with some bleeding from her hemorrhoids. No real exacerbating relieving qualities associated with this. Patient denies any presence of fevers. Review of systems otherwise negative. [facility] Medical History Abdominal pain Acute gastritis Acute non-ST elevation myocardial infarction (NSTEMI) Anxiety Chronic constipation Chronic hypoxemic respiratory failure COPD (chronic obstructive pulmonary disease) Debility Degenerative disc disease, lumbar Depression Diverticulosis DVT (deep venous thrombosis) Dyspnea Epilepsy Essential tremor Extrapyramidal disorder Fall Gastritis Grade III hemorrhoids Hemorrhoids Hypertension Hypotension Hypothyroidism Insomnia Left arm weakness Obstructive sleep apnea On home oxygen therapy Pain, chronic Paresthesias Physical debility Polyneuropathy Rectal prolapse Restless leg syndrome Seizure disorder Sleep apnea Smoker Spinal stenosis Spinal stenosis of lumbar region Stress bladder incontinence, female Suicide attempt Takotsubo cardiomyopathy Tobacco use Vitamin D deficiency Home Medications duloxetine 20 mg PO DAILY 01/07/19 [History Last Taken 04/06/21] potassium chloride 20 meq PO BID 01/07/19 [History Last Taken 04/06/21] mirtazapine 7.5 mg tablet 7.5 mg PO QHS tablet 02/21/19 [History Last Taken 04/06/21] ropinirole 2 mg PO QHS 08/08/19 [History Last Taken 04/06/21] calcium carbonate 500 mg calcium (1,250 mg) tablet 500 mg PO BID 05/13/20 [History Last Taken 04/06/21] fluticasone furoate 100 mcg-vilanterol 25 mcg/dose inhalation powder 2 puff INHALATION DAILY 05/13/20 [History Last Taken 04/06/21] mirabegron 25 mg tablet,extended release 24 hr 25 mg PO BID tab 05/13/20 [History Last Taken 04/06/21] sennosides 8.6 mg-docusate sodium 50 mg tablet 2 tab PO BID 05/13/20 [History Last Taken 04/06/21] oxcarbazepine 600 mg tablet 600 mg PO BID #60 tab 10/13/20 [Rx Last Taken 04/06/21] phenobarbital 32.4 mg tablet 32.4 mg PO BID #60 tab 10/13/20 [Rx Last Taken 04/06/21] cholecalciferol (vitamin D3) 1,250 mcg PO WE 10/20/20 [History Last Taken 04/01/21] multivitamin 1 tab PO 1200 10/20/20 [History Last Taken 04/06/21] methadone 10 mg PO TID 5 Days #15 tab 10/25/20 [Rx Last Taken 04/07/21 06:00] ondansetron 4 mg PO Q6H PRN 01/10/21 [History Last Taken 04/07/21] Metamucil Fiber Singles 1 packet PO TID #0 ea 01/21/21 [Rx Last Taken 04/07/21 06:00] midodrine 10 mg PO TID #90 tab 01/21/21 [Rx Last Taken 04/06/21] nicotine 1 patch TOPICAL DAILY #30 ea 01/21/21 [Rx Last Taken 04/07/21] nitroglycerin 0.4 mg SUBLINGUAL Q5M PRN #30 tab 01/21/21 [Rx Last Taken Unknown] temazepam 30 mg PO QHS PRN #0 cap 01/21/21 [Rx Last Taken 04/05/21] hydrocortisone [Procto-Med HC] 1 applic CO DAILY PRN #30 g 01/31/21 [Rx Last Taken Unknown] aspirin 81 mg PO DAILY@1200 04/07/21 [History Last Taken 04/06/21] atorvastatin 40 mg PO QHS 04/07/21 [History Last Taken 04/06/21] benztropine 2 mg PO BID 04/07/21 [History Last Taken 04/06/21] brimonidine 1 drp EACH EYE BID 04/07/21 [History Last Taken 04/06/21] docusate sodium [Colace] 100 mg PO DAILY 04/07/21 [History Last Taken 04/06/21] ferrous sulfate [FeroSul] 325 mg PO QODAY 04/07/21 [History Last Taken 04/01/21] levothyroxine 25 mcg PO DAILY 04/07/21 [History Last Taken 04/06/21] polyethylene glycol 3350 17 g PO DAILY 04/07/21 [History Last Taken 04/06/21] pantoprazole 40 mg PO BID #60 tab 04/10/21 [Rx Last Taken Unknown] Allergy/AdvReac Type Severity Reaction Status Date / Time codeine Allergy Mild HIVES Verified 04/07/21 09:33 Penicillins Allergy Anaphylaxis Verified 04/07/21 09:33 Family History Mother Diabetes Heart disease Hypertension CAD (coronary artery disease) CVA (cerebral vascular accident) Thyroid disorder Father Colon cancer Surgical History History of bilateral carpal tunnel release History of bilateral cataract extraction History of blepharoplasty History of cystoscopy History of esophagogastroduodenoscopy (EGD) (~03/07/19) History of left heart catheterization (01/16/21) History of right hip replacement History of right salpingo-oophorectomy S/P appendectomy S/P laparoscopic cholecystectomy Status post ORIF of fracture of ankle Social History household members: none housing: apartment pets and animals: Yes (cat) pets and animals: cat(s) Smoking Status: Former smoker Tobacco: How many years used: 50 alcohol intake: never substance use type: does not use well-balanced diet: rarely or never do you feel safe at home: Yes ROS ROS ED Constitutional Constitutional ED: Denies chills or fever(s) ENT ENT ED: Denies sore throat Cardiovascular Cardiovascular: Denies chest pain Respiratory/Chest Respiratory/Chest: Denies cough or dyspnea Gastrointestinal Gastrointestinal: Reports abdominal pain and other Details: Hematemesis and bleeding hemorrhoids Genitourinary Genitourinary ED: Denies dysuria, hematuria or urinary frequency Musculoskeletal Musculoskeletal: Denies myalgias Integumentary Denies rash Neurologic Neurologic: Denies paresthesias or weakness Psychiatric Psychiatric: Denies depression Endocrine Endocrinology: Denies polyuria Hematologic/Lymphatic Hematologic/Lymphatic: Denies easy bleeding or easy bruising Allergic/Immunologic Allergic/Immunologic ED: Denies urticaria EXAM Physical Exam Const Vital Signs: 04/14/21 06:28 04/14/21 06:31 Temperature 98.7 F Temperature Source Temporal Pulse Rate 79 Blood Pressure 152/91 H Blood Pressure Mean 111 Constitutional Narrative: Chronically ill-appearing female laying in the right lateral decubitus position visibly in pain HEENT HEENT Narrative: Black dried emesis noted on the patient's tongue normocephalic and atraumatic Eyes EOMs intact bilaterally General Eye ED: Negative for pale conjunctiva or scleral icterus Neck no lymphadenopathy and supple Resp normal respiratory effort and clear to auscultation bilaterally Cardio regular rate, regular rhythm, no murmurs and peripheral pulses 2+ throughout Cardio Narrative: 2+ radial pulses bilaterally symmetric GI GI Narrative: Patient is holding her abdomen, complaining of diffuse tenderness to palpation, no obvious localization. No palpable masses although the patient will not roll onto her back so adequate abdominal exam was somewhat difficult Back/Spine no CVA tenderness Extremity full ROM General Extremety ED: Negative for edema General Extremity: Negative for edema Neuro moves all extremities and no sensory deficits noted Sensorium / Orientation: alert, oriented to person, oriented to place and oriented to time Motor Exam: strength 5/5 throughout Psych mental status grossly normal Skin Rashes: no rashes MDM MDM MDM Narrative Medical decision making narrative: Patient presented secondary to concerns for a upper GI bleed. I reviewed the patient's records she had a recent upper endoscopy that showed esophagitis that was biopsied, a hiatal hernia, and no other acute pathology. Patient does appear to have what would seem to have been some hematemesis with dried blood on her tongue. IV was established patient was ordered morphine Zofran fluids, as well as a Protonix bolus. Laboratory work-up and CT imaging were ordered. I spoke with Dr Lobato who performed endoscopy on the patient 4 days ago and he is aware. The patient did not have any significant lesions that would be likely to cause severe upper GI bleeding. Hemoglobin was stable at 11.1. CMP shows mild hyponatremia 132, normal BUN, normal liver function and normal lipase. CT imaging is currently pending. The patient will be signed out to the oncoming physician who will followup on response to treatment and imaging results. Lab Data Labs: Laboratory Results - last 24 hr 04/14/21 04/14/21 04/14/21 06:45 06:45 06:45 WBC 9.6 RBC 3.75 L Hgb 11.0 L Hct 34.1 L MCV 90.9 MCH 29.3 MCHC 32.3 RDW Std Deviation 45.1 H RDW Coeff of Jordin 13.4 Plt Count 398 MPV 9.6 Immature Gran % (Auto) 0.400 Neut % (Auto) 89.4 H Lymph % (Auto) 6.8 L Russell % (Auto) 3.1 Eos % (Auto) 0.1 Baso % (Auto) 0.2 Absolute Neuts (auto) 8.6 H Absolute Lymphs (auto) 0.65 L Nucleated RBC % 0 Differential Comment SCANNED Platelet Estimate ADEQUATE PT INR APTT Sodium 132 L Potassium 3.6 Chloride 92 L Carbon Dioxide 34.0 H Anion Gap 6 BUN 15 Creatinine 0.60 Estim Creat Clear Calc 46.43 Est GFR (MDRD) Af Amer 126 Est GFR (MDRD) Non-Af 104 BUN/Creatinine Ratio 24.9 H Glucose 217 H Lactic Acid 1.6 Calcium 9.1 Total Bilirubin 0.30 AST 24 ALT 18 Alkaline Phosphatase 93 Total Protein 7.6 Albumin 3.1 L Globulin 4.5 H Albumin/Globulin Ratio 0.7 L Lipase 17 L 04/14/21 06:45 WBC RBC Hgb Hct MCV MCH MCHC RDW Std Deviation RDW Coeff of Jordin Plt Count MPV Immature Gran % (Auto) Neut % (Auto) Lymph % (Auto) Russell % (Auto) Eos % (Auto) Baso % (Auto) Absolute Neuts (auto) Absolute Lymphs (auto) Nucleated RBC % Differential Comment Platelet Estimate PT 13.1 INR 1.1 APTT 20.9 L Sodium Potassium Chloride Carbon Dioxide Anion Gap BUN Creatinine Estim Creat Clear Calc Est GFR (MDRD) Af Amer Est GFR (MDRD) Non-Af BUN/Creatinine Ratio Glucose Lactic Acid Calcium Total Bilirubin AST ALT Alkaline Phosphatase Total Protein Albumin Globulin Albumin/Globulin Ratio Lipase Discharge Plan Triage Chief Complaint: GI Bleed ED Provider: Wayne Hi Dx/Rx/DC Orders Clinical Impression: Hematemesis, Abdominal pain, History of esophagitis Prescriptions: No Action Myrbetriq 25 mg tablet extended release 24 hr 25 mg PO BID RF: 0 sennosides-docusate sodium [Senexon-S] 8.6-50 mg tablet 2 tab PO BID RF: 0 calcium carbonate [Oyster Shell Calcium] 500 mg calcium (1,250 mg) tablet 500 mg PO BID RF: 0 fluticasone furoate-vilanterol 100-25 mcg/dose blister with device 2 puff INHALATION DAILY RF: 0 oxcarbazepine 600 mg tablet 600 mg PO BID Qty: 60 RF: 3 phenobarbital 32.4 mg tablet 32.4 mg PO BID Qty: 60 RF: 3 potassium chloride 20 MEQ tablet 20 meq PO BID RF: 0 duloxetine 20 MG capsule,delayed release(DR/EC) 20 mg PO DAILY RF: 0 mirtazapine 7.5 mg tablet 7.5 mg PO QHS RF: 0 ropinirole 2 MG tablet 2 mg PO QHS RF: 0 multivitamin Tablet 1 tab PO 1200 RF: 0 cholecalciferol (vitamin D3) 1,250 mcg (50,000 unit) capsule 1,250 mcg PO WE RF: 0 methadone 10 mg tablet 10 mg PO TID 5 Days Qty: 15 RF: 0 ondansetron 4 mg Tablet,Disintegrating 4 mg PO Q6H PRN (Reason: Nausea) RF: 0 nitroglycerin 0.4 mg Tablet, Sublingual 0.4 mg sublingual Q5M PRN (Reason: CHEST PAIN) Qty: 30 RF: 0 Metamucil Fiber Singles 3.4 gram Powder In Packet 1 packet PO TID Qty: 0 RF: 0 temazepam 30 mg Capsule 30 mg PO QHS PRN (Reason: Sleep) Qty: 0 RF: 0 nicotine 21 mg/24 hr patch 24 hour 1 patch TOPICAL DAILY Qty: 30 RF: 0 midodrine 10 mg tablet 10 mg PO TID Qty: 90 RF: 0 hydrocortisone [Procto-Med HC] 2.5 % cream with perineal applicator 1 applic CO DAILY PRN (Reason: hemorrhoids) Qty: 30 RF: 0 levothyroxine 25 mcg Tablet 25 mcg PO DAILY RF: 0 brimonidine 0.2 % Drops 1 drp EACH EYE BID RF: 0 aspirin 81 mg Tablet,Chewable 81 mg PO DAILY@1200 RF: 0 atorvastatin 40 mg tablet 40 mg PO QHS RF: 0 polyethylene glycol 3350 17 gram powder in packet 17 g PO DAILY RF: 0 ferrous sulfate [FeroSul] 325 mg (65 mg iron) tablet 325 mg PO QODAY RF: 0 benztropine 2 mg tablet 2 mg PO BID RF: 0 docusate sodium [Colace] 100 mg capsule 100 mg PO DAILY RF: 0 pantoprazole 40 mg tablet,delayed release (DR/EC) 40 mg PO BID Qty: 60 RF: 1 Primary Care Provider: Saulo Pagan Referrals: Saulo Pagan MD [Primary Care Provider] -
[2021-04-14 07:05] LABS: Absolute Lymphocyte Count 0.65 X10^3/uL (0.83-4.51); Absolute Neutrophil Count 8.6 X10^3/uL (2.0-7.7); Basophil# 0.02 X10^3/uL; Basophil% 0.2 % (0-1); Eosinophil# 0.01 X10^3/uL; Eosinophils% 0.1 % (0-5); Hematocrit 34.1 % (37-47); Lymphocyte # 0.65 X10^3/ul (0.83-4.51); Lymphocyte % 6.8 % (19-41); Mean Corp Hgb Conc 32.3 g/dL (32-36); Mean Corpuscular Hgb 29.3 pg (27.0-32.0); Mean Corpuscular Volume 90.9 fL (81-99); Mean Platelet Vol. 9.6 fl (6.2-12.0); Monocyte% 3.1 % (0-10); NRBC Flagged by Analyzer 0 % (0-5); Neutrophil # 8.56 X10^3/uL (2.7-7.7); Neutrophil % 89.4 % (47-70); POSITIVE COUNT YES; Platelet Count 398 K/mm3 (150-450); RBC Distribution Width CV 13.4 % (11.6-14.6); RBC Distribution Width SD 45.1 fl (35.1-43.9); Red Blood Count 3.75 M/mm3 (4.2-5.4); White Blood Count 9.6 K/mm3 (4.4-11.0)
[2021-04-14 07:06] LABS: Differential Indicated SCAN CRITERIA MET
[2021-04-14 07:18] LABS: International Normalized Ratio 1.1; Partial Thromboplast Time 20.9 Seconds (24.1-36.2); Prothrombin Time (Protime)PT. 13.1 SECONDS (11.7-14.9)
[2021-04-14 07:20] LABS: ALB/GLOB Ratio 0.7 RATIO (0.9-2.4); AST(SGOT) 24 U/L (15-37); Alanine Aminotransfer ALT/SGPT 18 U/L (13-56); Albumin, Serum 3.1 g/dL (3.2-5.0); Alkaline Phosphatase 93 U/L (45-117); Anion Gap 6 (5-15); BUN 15 mg/dL (7-18); BUN/Creat Ratio 24.9 RATIO (10-20); Calcium,Total 9.1 mg/dL (8.5-10.1); Chloride 92 mmol/L (98-107); EST Glomerular Filtration Rate 104 mL/min (>60); Est Glom Filt Rate - Afr Amer 126 mL/min (>60); Estimated Creatinine Clearance 46.43 ml/min; Globulin 4.5 g/dL (2.2-4.2); Glucose 217 mg/dL (74-106); Lipase 17 U/L (73-393); Potassium 3.6 mmol/L (3.5-5.1); Protein, Total 7.6 g/dL (6.4-8.2); Sodium Level 132 mmol/L (136-145)
[2021-04-14] MEDS: Ondansetron 4 MG/2 ML Vial IV ×2 (07:23→09:24)
[2021-04-14] MEDS: 0.9% Normal Saline 1,000 ML 1000 ML IV (07:23)
[2021-04-14] MEDS: Morphine 4 MG/ML Syringe IV ×2 (07:23→09:24)
[2021-04-14 07:26] LABS: Differential Comment SCANNED; Lactic Acid 1.6 mmol/L (0.4-1.9); Platelet Estimate ADEQUATE (ADEQ)
--- NOTE | 2021-04-14 09:53 | NURSING ---
DR CODIE RESTREPO
--- NOTE | 2021-04-14 10:02 | NURSING ---
HOSPITALIST IN WITH PATIENT
--- NOTE | 2021-04-14 10:11 | NURSING ---
PCU [facility] GI BLEED, ABD PAIN
--- NOTE | 2021-04-14 10:12 | PCM.HP.STD ---
[facility] - General General Date of Admission: 04/14/21 Date of Service: 04/14/21 Chief Complaint: Hematemesis HPI Narrative XANDER RAMIREZ, is a 70 F who presents with hematemesis. Patient is currently in a senior care, was noted to have coffee-ground emesis. She was recently admitted and discharged with similar presentation. EGD done showed esophagitis. Patient had remained on aspirin. In the emergency department, her vitals were stable, hemoglobin was also stable, unchanged from previous Patient had a staying down that had coffee-ground emesis. She continued to have abdominal discomfort, described as cramping. [facility] Medical History Abdominal pain Acute gastritis Acute non-ST elevation myocardial infarction (NSTEMI) Anxiety Chronic constipation Chronic hypoxemic respiratory failure COPD (chronic obstructive pulmonary disease) Debility Degenerative disc disease, lumbar Depression Diverticulosis DVT (deep venous thrombosis) Dyspnea Epilepsy Essential tremor Extrapyramidal disorder Fall Gastritis Grade III hemorrhoids Hemorrhoids Hypertension Hypotension Hypothyroidism Insomnia Left arm weakness Obstructive sleep apnea On home oxygen therapy Pain, chronic Paresthesias Physical debility Polyneuropathy Rectal prolapse Restless leg syndrome Seizure disorder Sleep apnea Smoker Spinal stenosis Spinal stenosis of lumbar region Stress bladder incontinence, female Suicide attempt Takotsubo cardiomyopathy Tobacco use Vitamin D deficiency Home Medications duloxetine 20 mg PO DAILY 01/07/19 [History Last Taken 04/06/21] potassium chloride 20 meq PO BID 01/07/19 [History Last Taken 04/06/21] mirtazapine 7.5 mg tablet 7.5 mg PO QHS tablet 02/21/19 [History Last Taken 04/06/21] ropinirole 2 mg PO QHS 08/08/19 [History Last Taken 04/06/21] calcium carbonate 500 mg calcium (1,250 mg) tablet 500 mg PO BID 05/13/20 [History Last Taken 04/06/21] fluticasone furoate 100 mcg-vilanterol 25 mcg/dose inhalation powder 2 puff INHALATION DAILY 05/13/20 [History Last Taken 04/06/21] mirabegron 25 mg tablet,extended release 24 hr 25 mg PO BID tab 05/13/20 [History Last Taken 04/06/21] sennosides 8.6 mg-docusate sodium 50 mg tablet 2 tab PO BID 05/13/20 [History Last Taken 04/06/21] oxcarbazepine 600 mg tablet 600 mg PO BID #60 tab 10/13/20 [Rx Last Taken 04/06/21] phenobarbital 32.4 mg tablet 32.4 mg PO BID #60 tab 10/13/20 [Rx Last Taken 04/06/21] cholecalciferol (vitamin D3) 1,250 mcg PO WE 10/20/20 [History Last Taken 04/01/21] multivitamin 1 tab PO 1200 10/20/20 [History Last Taken 04/06/21] methadone 10 mg PO TID 5 Days #15 tab 10/25/20 [Rx Last Taken 04/07/21 06:00] ondansetron 4 mg PO Q6H PRN 01/10/21 [History Last Taken 04/07/21] Metamucil Fiber Singles 1 packet PO TID #0 ea 01/21/21 [Rx Last Taken 04/07/21 06:00] midodrine 10 mg PO TID #90 tab 01/21/21 [Rx Last Taken 04/06/21] nicotine 1 patch TOPICAL DAILY #30 ea 01/21/21 [Rx Last Taken 04/07/21] nitroglycerin 0.4 mg SUBLINGUAL Q5M PRN #30 tab 01/21/21 [Rx Last Taken Unknown] temazepam 30 mg PO QHS PRN #0 cap 01/21/21 [Rx Last Taken 04/05/21] aspirin 81 mg PO DAILY@1200 04/07/21 [History Last Taken 04/06/21] atorvastatin 40 mg PO QHS 04/07/21 [History Last Taken 04/06/21] benztropine 2 mg PO BID 04/07/21 [History Last Taken 04/06/21] brimonidine 1 drp EACH EYE BID 04/07/21 [History Last Taken 04/06/21] docusate sodium [Colace] 100 mg PO DAILY 04/07/21 [History Last Taken 04/06/21] ferrous sulfate [FeroSul] 325 mg PO QODAY 04/07/21 [History Last Taken 04/01/21] levothyroxine 25 mcg PO DAILY 04/07/21 [History Last Taken 04/06/21] polyethylene glycol 3350 17 g PO DAILY 04/07/21 [History Last Taken 04/06/21] pantoprazole 40 mg PO BID #60 tab 04/10/21 [Rx Last Taken Unknown] Allergy/AdvReac Type Severity Reaction Status Date / Time codeine Allergy Mild HIVES Verified 04/07/21 09:33 corn Allergy Hives Verified 04/14/21 11:10 Penicillins Allergy Anaphylaxis Verified 04/07/21 09:33 Family History Mother Diabetes Heart disease Hypertension CAD (coronary artery disease) CVA (cerebral vascular accident) Thyroid disorder Father Colon cancer Surgical History History of bilateral carpal tunnel release History of bilateral cataract extraction History of blepharoplasty History of cystoscopy History of esophagogastroduodenoscopy (EGD) (~03/07/19) History of left heart catheterization (01/16/21) History of right hip replacement History of right salpingo-oophorectomy S/P appendectomy S/P laparoscopic cholecystectomy Status post ORIF of fracture of ankle Social History household members: none housing: apartment pets and animals: Yes (cat) pets and animals: cat(s) Smoking Status: Former smoker Tobacco: How many years used: 50 alcohol intake: never substance use type: does not use well-balanced diet: rarely or never do you feel safe at home: Yes ROS ROS Narrative Constitutional: Denies: Anorexia, Chills, Fever, Night Sweats, Weight Change Eyes: Denies: Blurred vision, Cataracts, Conjunctivae Inflammation, Pain, Redness, Vision Change HEENT: Denies: Difficulty Hearing, Difficulty Swallowing, Head Aches, Hearing Changes, Sinus Congestion, Sinus Drainage Cardiovascular: Denies: Chest Pain, Orthopnea, Palpitations Respiratory: Denies: Cough, Shortness of breath at rest, Sputum production Gastrointestinal: Admits to abdominal Pain, Nausea, Vomiting, denies hematochezia Genitourinary: Denies: Dysuria Musculoskeletal: Denies: Joint Pain, Joint stiffness, Joint swelling, Joint Tenderness Skin: Denies: Rash, Wounds Neurological: Denies: Numbness, Tingling, Focal weakness Vital Signs Vital Signs Vital Signs: 04/14/21 06:28 04/14/21 06:31 04/14/21 08:03 Temperature 98.7 F Temperature Source Temporal Pulse Rate 79 105 H Blood Pressure 152/91 H 188/111 H Blood Pressure Mean 111 136 Pulse Ox 100 Oxygen Delivery Method Room Air Weight Weight: 83.8 kg Body Mass Index (BMI) 30.7 Physical Exam Narrative Physical exam: General: Alert, Oriented x3, Cooperative, in mild distress, resting in bed, evidence of coffee-ground emesis on her gown HEENT: Atraumatic Oral: Moist Mucosa Neck: Supple Lungs: Clear to auscultation Cardiovascular: HS I+II, regular, no murmurs Abdomen: Bowel Sounds Present, Soft, Non Tender Extremities: No edema Results Lab / Micro Data Result Diagrams: 04/14/21 06:45 04/14/21 06:45 Labs: Laboratory Results - last 24 hr 04/14/21 06:45: WBC 9.6, RBC 3.75 L, Hgb 11.0 L, Hct 34.1 L, MCV 90.9, MCH 29.3, MCHC 32.3, RDW Std Deviation 45.1 H, RDW Coeff of Jordin 13.4, Plt Count 398, MPV 9.6, Immature Gran % (Auto) 0.400, Neut % (Auto) 89.4 H, Lymph % (Auto) 6.8 L, Shelby % (Auto) 3.1, Eos % (Auto) 0.1, Baso % (Auto) 0.2, Absolute Neuts (auto) 8.6 H, Absolute Lymphs (auto) 0.65 L, Nucleated RBC % 0, Differential Comment SCANNED, Platelet Estimate ADEQUATE 04/14/21 06:45: Sodium 132 L, Potassium 3.6, Chloride 92 L, Carbon Dioxide 34.0 H, Anion Gap 6, BUN 15, Creatinine 0.60, Estim Creat Clear Calc 46.43, Est GFR (MDRD) Af Amer 126, Est GFR (MDRD) Non-Af 104, BUN/Creatinine Ratio 24.9 H, Glucose 217 H, Calcium 9.1, Total Bilirubin 0.30, AST 24, ALT 18, Alkaline Phosphatase 93, Total Protein 7.6, Albumin 3.1 L, Globulin 4.5 H, Albumin/Globulin Ratio 0.7 L, Lipase 17 L 04/14/21 06:45: Lactic Acid 1.6 04/14/21 06:45: PT 13.1, INR 1.1, APTT 20.9 L 04/14/21 06:45: Blood Type A POSITIVE, Antibody Screen NEGATIVE Radiology Impression Abdomen/Pelvis CT 04/14/21 06:33 IMPRESSION: Anorectal wall thickening, which may be inflammatory with underlying lesion not excluded. Moderate stool in the colon. Persistent distention of the stomach. Individualized dose optimization techniques were used for this CT. at [id number] Reported and signed by: Alyx Deutsch MD Electronically Signed: Alyx Deutsch MD at 8:05 EDT Tel , Service support , Assessment & Plan Assessment/Plan (1) Hematemesis: (2) Abdominal pain: (3) Acute GI bleeding: (4) Intractable nausea and vomiting: (5) Acquired gastric outlet stenosis: PLAN: 1. Hematemesis likely secondary to acute GI bleed Patient with recent EGD on 04/10/21 that showed esophagitis Patient was discharged on p.o. pantoprazole twice daily as well as aspirin continued Vitals are stable, hemoglobin is stable Admit to PCU, IV fluids, H&H every 6, GI consult, IV PPI drip 2. Acute intractable nausea and vomiting, history of possible gastric outlet stenosis/sliding hiatal hernia Continue to monitor on metoclopramide, will be monitoring for worsening extrapyramidal symptoms GI consult: Patient may need a gastric emptying study 3. Hyponatremia, chronic, Na is 132 4. Rest of her chronic medical conditions including seizure disorder, hyperlipidemia, tardive dyskinesia/COPD/hypothyroidism/CHUY Patient's home medications reviewed Charges/Coding Visit Charges Inpatient E&M: 46514 Init Hosp L3
[2021-04-14] MEDS: Metoclopramide 10 MG/2 ML Vial 5 MG IV (10:26)
--- NOTE | 2021-04-14 11:10 | PCS.PANDOC ---
PANDEMIC DOCUMENTATION INITIATED: Date: 02/02/2021 Time: 190
[2021-04-14] MEDS: 0.9% Normal Saline 1,000 ML 100 ML IV ×2 (11:15→20:53)
[2021-04-14] MEDS: Morphine 2 MG/ML Syringe IV (11:49)
[2021-04-14] MEDS: 0.9% Saline Lock 10 ML Syringe IV (11:49)
--- NOTE | 2021-04-14 16:12 | EX.PCM.CON.G ---
HPI Consult Data Date of Consult: 04/14/21 HPI Narrative HPI Narrative: XANDER RAMIREZ, is a 70 F [facility] acute onset of abdominal pain followed by multiple episodes of hematemesis. Patient was recently admitted to the hospital for abdominal pain and coffee-ground emesis. Her previous CT scan had shown the following: A small hiatal hernia. There is circumferential thickening at the level of the gastroesophageal junction. There is thickening of the distal portion of the body of the stomach. There is gaseous distention of the body and fundal portion of the stomach. Gastric outlet obstruction should be. Normal small intestine. There are multiple colonic diverticula consistent with diverticulosis. There is non-visualization of the appendix. I was consulted and performed an upper endoscopy. She was discovered to have LA grade C to D erosive esophagitis along with a moderate size sliding hiatal hernia. She was placed on a PPI drip and Carafate. She was able to tolerate a diet and was discharged to home. She came back to the hospital with again worsening nausea and acute onset of abdominal pain followed by episodes of coffee-ground emesis. Her repeat CT scan today is as following: Anorectal wall thickening, which may be inflammatory with underlying lesion not excluded. Moderate stool in the colon. Persistent distention of the stomach. Individualized dose optimization techniques were used for this CT. She did complain of lower GI bleeding. At this time she is not have any signs of bleeding. Her hemoglobin is 11 but I suspect that it will go down. I was consulted for management of upper GI bleed. [facility] Medical History (Updated 04/14/21 @ 16:[address] Lee Friend, DO) Abdominal pain Acute gastritis Acute non-ST elevation myocardial infarction (NSTEMI) Anxiety Chronic constipation Chronic hypoxemic respiratory failure COPD (chronic obstructive pulmonary disease) Debility Degenerative disc disease, lumbar Depression Diverticulosis DVT (deep venous thrombosis) Dyspnea Epilepsy Essential tremor Extrapyramidal disorder Fall Gastritis Grade III hemorrhoids Hemorrhoids Hypertension Hypotension Hypothyroidism Insomnia Left arm weakness Lower GI bleeding Obstructive sleep apnea On home oxygen therapy Pain, chronic Paresthesias Physical debility Polyneuropathy Rectal prolapse Restless leg syndrome Seizure disorder Sleep apnea Smoker Spinal stenosis Spinal stenosis of lumbar region Stress bladder incontinence, female Suicide attempt Takotsubo cardiomyopathy Tobacco use Vitamin D deficiency Home Medications duloxetine 20 mg PO DAILY 01/07/19 [History Last Taken 04/06/21] potassium chloride 20 meq PO BID 01/07/19 [History Last Taken 04/06/21] mirtazapine 7.5 mg tablet 7.5 mg PO QHS tablet 02/21/19 [History Last Taken 04/06/21] ropinirole 2 mg PO QHS 08/08/19 [History Last Taken 04/06/21] calcium carbonate 500 mg calcium (1,250 mg) tablet 500 mg PO BID 05/13/20 [History Last Taken 04/06/21] fluticasone furoate 100 mcg-vilanterol 25 mcg/dose inhalation powder 2 puff INHALATION DAILY 05/13/20 [History Last Taken 04/06/21] mirabegron 25 mg tablet,extended release 24 hr 25 mg PO BID tab 05/13/20 [History Last Taken 04/06/21] sennosides 8.6 mg-docusate sodium 50 mg tablet 2 tab PO BID 05/13/20 [History Last Taken 04/06/21] oxcarbazepine 600 mg tablet 600 mg PO BID #60 tab 10/13/20 [Rx Last Taken 04/06/21] phenobarbital 32.4 mg tablet 32.4 mg PO BID #60 tab 10/13/20 [Rx Last Taken 04/06/21] cholecalciferol (vitamin D3) 1,250 mcg PO WE 10/20/20 [History Last Taken 04/01/21] multivitamin 1 tab PO 1200 10/20/20 [History Last Taken 04/06/21] methadone 10 mg PO TID 5 Days #15 tab 10/25/20 [Rx Last Taken 04/07/21 06:00] ondansetron 4 mg PO Q6H PRN 01/10/21 [History Last Taken 04/07/21] Metamucil Fiber Singles 1 packet PO TID #0 ea 01/21/21 [Rx Last Taken 04/07/21 06:00] midodrine 10 mg PO TID #90 tab 01/21/21 [Rx Last Taken 04/06/21] nicotine 1 patch TOPICAL DAILY #30 ea 01/21/21 [Rx Last Taken 04/07/21] nitroglycerin 0.4 mg SUBLINGUAL Q5M PRN #30 tab 01/21/21 [Rx Last Taken Unknown] temazepam 30 mg PO QHS PRN #0 cap 01/21/21 [Rx Last Taken 04/05/21] aspirin 81 mg PO DAILY@1200 04/07/21 [History Last Taken 04/06/21] atorvastatin 40 mg PO QHS 04/07/21 [History Last Taken 04/06/21] benztropine 2 mg PO BID 04/07/21 [History Last Taken 04/06/21] brimonidine 1 drp EACH EYE BID 04/07/21 [History Last Taken 04/06/21] docusate sodium [Colace] 100 mg PO DAILY 04/07/21 [History Last Taken 04/06/21] ferrous sulfate [FeroSul] 325 mg PO QODAY 04/07/21 [History Last Taken 04/01/21] levothyroxine 25 mcg PO DAILY 04/07/21 [History Last Taken 04/06/21] polyethylene glycol 3350 17 g PO DAILY 04/07/21 [History Last Taken 04/06/21] pantoprazole 40 mg PO BID #60 tab 04/10/21 [Rx Last Taken Unknown] Allergy/AdvReac Type Severity Reaction Status Date / Time codeine Allergy Mild HIVES Verified 04/07/21 09:33 corn Allergy Hives Verified 04/14/21 11:10 Penicillins Allergy Anaphylaxis Verified 04/07/21 09:33 Family History Mother Diabetes Heart disease Hypertension CAD (coronary artery disease) CVA (cerebral vascular accident) Thyroid disorder Father Colon cancer Surgical History History of bilateral carpal tunnel release History of bilateral cataract extraction History of blepharoplasty History of cystoscopy History of esophagogastroduodenoscopy (EGD) (~03/07/19) History of left heart catheterization (01/16/21) History of right hip replacement History of right salpingo-oophorectomy S/P appendectomy S/P laparoscopic cholecystectomy Status post ORIF of fracture of ankle Social History household members: none housing: apartment pets and animals: Yes (cat) pets and animals: cat(s) Smoking Status: Former smoker Tobacco: How many years used: 50 alcohol intake: never substance use type: does not use well-balanced diet: rarely or never do you feel safe at home: Yes ROS Review of Systems ROS Unobtainable: other Constitutional Constitutional: Denies fatigue, fever(s), poor appetite, weight gain or weight loss ENT HEENT: Denies mouth lesions Cardiovascular Cardiovascular: Denies abdominal bloating, abdominal edema or abdominal pain Respiratory/Chest Respiratory/Chest: Denies change in mental status, change in phlegm color, chest congestion or chest tightness Gastrointestinal Gastrointestinal: Reports coffee ground emesis and dyspepsia; Denies constipation or cramping Genitourinary Genitourinary: Denies abdominal discomfort, burning urination or itching Musculoskeletal Musculoskeletal: Reports as per HPI; Denies muscle weakness or myalgias Integumentary Integumentary: Denies jaundice Neurologic Neurologic: Denies lack of coordination or weakness Psychiatric Psychiatric: Denies confusion, depression, memory loss, mood swings, paranoia or suicidal ideation Endocrine Endocrinology: Denies systems reviewed and no addt'l complaints, except as documented Hematologic/Lymphatic Hematologic/Lymphatic: Denies anemia, easy bleeding, easy bruising or lymphadenopathy Allergic/Immunologic Allergic/Immunologic: Denies systems reviewed and no addt'l complaints, except as documented Physical Exam Const alert General Appearance: cooperative Orientation / Consciousness: oriented to person HEENT hearing grossly normal bilaterally Head and Scalp: normal to inspection Face and Sinus: face symmetric Nose: external nose normal Mouth: oral and palatal mucosa normal Eyes conjunctivae normal General Eye: normal appearance of both eyes Neck full ROM General: normal visual inspection Lymph Lymphatic: no lymphadenopathy noted Chest inspection of chest normal and palpation of chest normal Chest: symmetrical chest wall rise Resp normal respiratory effort Effort and Inspection: able to speak in complete sentences Cardio regular rate GI non-distended Percussion: normal to percussion Rectal Exam: deferred Neuro Speech: speech normal Gait (Neuro): normal gait Lab / Micro Data Result Diagrams: 04/14/21 06:45 04/14/21 06:45 Labs: Laboratory Results - last 24 hr 04/14/21 06:45: WBC 9.6, RBC 3.75 L, Hgb 11.0 L, Hct 34.1 L, MCV 90.9, MCH 29.3, MCHC 32.3, RDW Std Deviation 45.1 H, RDW Coeff of Jordin 13.4, Plt Count 398, MPV 9.6, Immature Gran % (Auto) 0.400, Neut % (Auto) 89.4 H, Lymph % (Auto) 6.8 L, [place] % (Auto) 3.1, Eos % (Auto) 0.1, Baso % (Auto) 0.2, Absolute Neuts (auto) 8.6 H, Absolute Lymphs (auto) 0.65 L, Nucleated RBC % 0, Differential Comment SCANNED, Platelet Estimate ADEQUATE 04/14/21 06:45: Sodium 132 L, Potassium 3.6, Chloride 92 L, Carbon Dioxide 34.0 H, Anion Gap 6, BUN 15, Creatinine 0.60, Estim Creat Clear Calc 46.43, Est GFR (MDRD) Af Amer 126, Est GFR (MDRD) Non-Af 104, BUN/Creatinine Ratio 24.9 H, Glucose 217 H, Calcium 9.1, Total Bilirubin 0.30, AST 24, ALT 18, Alkaline Phosphatase 93, Total Protein 7.6, Albumin 3.1 L, Globulin 4.5 H, Albumin/Globulin Ratio 0.7 L, Lipase 17 L 04/14/21 06:45: Lactic Acid 1.6 04/14/21 06:45: PT 13.1, INR 1.1, APTT 20.9 L 04/14/21 06:45: Blood Type A POSITIVE, Antibody Screen NEGATIVE Radiology Impression Abdomen/Pelvis CT 04/14/21 06:33 IMPRESSION: Anorectal wall thickening, which may be inflammatory with underlying lesion not excluded. Moderate stool in the colon. Persistent distention of the stomach. Individualized dose optimization techniques were used for this CT. at [id number] Reported and signed by: Alyx Deutsch MD Electronically Signed: Alyx Deutsch MD at 8:05 EDT Tel , Service support , Assessment & Plan Assessment/Plan (1) Hematemesis: PLAN: She is likely having hematemesis secondary to erosive esophagitis. She could also be bleeding from a Nadine-Bonilla tear from nausea vomiting. Is unlikely she has an acute gastric ulcer. However is on the differential diagnosis. She does not have her gallbladder. There are no signs of bowel obstruction. The previous imaging had shown gastric outlet obstruction due to the inability of the stomach to relax appropriately on CT scan but there was no signs of that on recent endoscopy. (2) History of esophagitis: PLAN: We will start her on a PPI drip and maintain that until endoscopy is performed. (3) Abdominal pain: PLAN: I am not clear on her etiology of her abdominal pain she could have gastroparesis. She will need an upper endoscopy. Followed by a gastric emptying study. (4) Lower GI bleeding: PLAN: She would likely need a colonoscopy if she can tolerate the prep without being nauseous. Charges/Coding Visit Charges Inpatient E&M: 45545 Init Hosp L3
--- NOTE | 2021-04-14 16:18 | SUR.PHASEI ---
Patient arrives to PACU with pantoprazole infusion. 10ml/hr, 8mh/hr. will cont to monitor.
--- NOTE | 2021-04-14 16:27 | OP.EGD_ITS ---
Patient Name: Bela Sandoval Procedure Date: 04/14/2021 3:42 PM Date of : 1950 Age: 70 Procedure: Upper GI endoscopy Indications: Coffee-ground emesis Providers: Jesus Lobato DO Medicines: Propofol per Anesthesia Patient Profile: This is a 70 year old female. Refer to note in patient chart for documentation of history and physical. Patient has symptoms of acute epigastric abdominal pain. Complications: No immediate complications. Procedure: Pre-Anesthesia Assessment: - Prior to the procedure, a History and Physical was performed, and patient medications and allergies were reviewed. The patient is competent. The risks and benefits of the procedure and the sedation options and risks were discussed with the patient. All questions were answered and informed consent was obtained. Patient identification and proposed procedure were verified by the physician in the pre-procedure area. Mental Status Examination: alert and oriented. Airway Examination: normal oropharyngeal airway and neck mobility. Respiratory Examination: clear to auscultation. CV Examination: normal. Prophylactic Antibiotics: The patient does not require prophylactic antibiotics. Prior Anticoagulants: The patient has taken no previous anticoagulant or antiplatelet agents. ASA Grade Assessment: II - A patient with mild systemic disease. After reviewing the risks and benefits, the patient was deemed in satisfactory condition to undergo the procedure. The anesthesia plan was to use moderate sedation / analgesia (conscious sedation). Immediately prior to administration of medications, the patient was re-assessed for adequacy to receive sedatives. The heart rate, respiratory rate, oxygen saturations, blood pressure, adequacy of pulmonary ventilation, and response to care were monitored throughout the procedure. The physical status of the patient was re-assessed after the procedure. After obtaining informed consent, the endoscope was passed under direct vision. Throughout the procedure, the patient's blood pressure, pulse, and oxygen saturations were monitored continuously. The gastroscope was introduced through the mouth, and advanced to the second part of duodenum. The upper GI endoscopy was accomplished without difficulty. The patient tolerated the procedure well. Moderate Sedation: Moderate (conscious) sedation was administered by the endoscopy nurse and supervised by the endoscopist. The patient's oxygen saturation, heart rate, blood pressure and response to care were monitored. Total physician intraservice time was 15 minutes. Scope In: 4:03:07 PM Scope Out: 4:07:37 PM Total Procedure Duration Time 0 hours 4 minutes 30 seconds Findings: LA Grade C (one or more mucosal breaks continuous between tops of 2 or more mucosal folds, less than 75% circumference) esophagitis was found 34 to 35 cm from the incisors. Estimated blood loss: none. A medium-sized sliding hiatal hernia was found. The proximal extent of the gastric folds (end of tubular esophagus) was 15 cm from the incisors. The hiatal narrowing was 40 cm from the incisors. Estimated blood loss: none. The exam of the duodenum was otherwise normal. Impression: - LA Grade C erosive esophagitis. - Medium-sized sliding hiatal hernia. - No specimens collected. Recommendation: - [facility]. -Gastric emptying study ordered for tomorrow -N.p.o. after midnight - Resume previous diet. - Continue present medications. - Clear liquid diet today. - Continue present medications. - Repeat upper endoscopy in 1 year for surveillance. - Return to GI office in 2 weeks. Procedure Code(s): --- Professional --- 68634, Esophagogastroduodenoscopy, flexible, transoral; diagnostic, including collection of specimen(s) by brushing or washing, when performed (separate procedure) G0500, Moderate sedation services provided by the same physician or other qualified health wound care specialist performing a gastrointestinal endoscopic service that sedation supports, requiring the presence of an independent trained observer to assist in the monitoring of the patient's level of consciousness and physiological status; initial 15 minutes of intra-service time; patient age 5 years or older (additional time may be reported with 13003, as appropriate) Diagnosis Code(s): --- Professional --- K20.8, Other esophagitis K44.9, Diaphragmatic hernia without obstruction or gangrene K92.0, Hematemesis CPT copyright 2017 [employer]. All rights reserved. The codes documented in this report are preliminary and upon suspender maker review may be revised to meet current compliance requirements. Jesus Lobato DO 04/14/2021 4:26:33 PM This report has been signed electronically. Number of Addenda: 1 Note Initiated On: 04/14/2021 3:42 PM Addendum Number: 1 Addendum Date: 02/18/2022 4:50:28 PM MAC was used instead of moderate sedation for this patient. Jesus Lobato DO 02/18/2022 4:50:35 PM This report has been signed electronically.
--- NOTE | 2021-04-14 16:27 | OP.CCLET_ITS ---
02/18/2022 Saulo Pagan MD [address] [id number] Re : Upper GI endoscopy procedure for Bela Sandoval Dear Dr. Pagan This procedure was performed on Wednesday, April 14, 2021. My impressions and recommendations are as follows: Impressions : - LA Grade C erosive esophagitis. - Medium-sized sliding hiatal hernia. - No specimens collected. Recommendations : - [facility] to [facility]. -Gastric emptying study ordered for tomorrow -N.p.o. after midnight - Resume previous diet. - Continue present medications. - Clear liquid diet today. - Continue present medications. - Repeat upper endoscopy in 1 year for surveillance. - Return to GI office in 2 weeks. My findings are described in the full procedure note, which is enclosed. If I can be of further assistance, please feel free to contact me at . Sincerely, Jesus Lobato, 04/14/2021 4:26:33 PM This report has been signed electronically.
[2021-04-14 17:28] LABS: Hematocrit 27.3 % (37-47); Hemoglobin 8.6 g/dL (12.0-15.0)
[2021-04-14] MEDS: Levothyroxine 25 MCG TABLET PO (20:29)
[2021-04-14] MEDS: Psyllium 1 PACKET PO (20:29)
[2021-04-14] MEDS: Atorvastatin Calcium 40 MG Tablet PO (20:30)
[2021-04-14] MEDS: Methadone 10 MG Tablet PO (20:30)
[2021-04-14] MEDS: BRIMONIDINE 0.2% 5ML BOTTLE 1 DRP EACH EYE (20:30)
[2021-04-14] MEDS: Senna/Docusate Sodium 1 Tablet 2 TABLET PO (20:32)
[2021-04-14] MEDS: Mirabegron 25 MG TAB.ER.24H PO (20:32)
[2021-04-14] MEDS: Benztropine 2 MG Tablet PO (20:32)
[2021-04-14] MEDS: Pramipexole Di-HCl 1 MG Tablet PO (20:38)
[2021-04-14] MEDS: Mirtazapine 15 MG Tablet 7.5 MG PO (20:38)
[2021-04-14] MEDS: Calcium (Elemental) 500 MG Tablet PO (20:38)
[2021-04-14] MEDS: Midodrine HCl 5 MG Tablet 10 MG PO (20:39)
[2021-04-14] MEDS: OXcarbazepine 600 MG Tablet PO (20:39)
[2021-04-14] MEDS: Phenobarbital 32.4 MG Tablet PO (20:42)
[2021-04-14 21:33] LABS: Hematocrit 22.8 % (37-47); Hemoglobin 7.6 g/dL (12.0-15.0); POSITIVE COUNT YES
[2021-04-15] VITALS (14 sets, daily range): BP systolic 94–130; BP diastolic 38–78; PULSE 84–98; RESP 14–20; TEMP 36.9–37.5; O2SAT 96–100; BMI 27.7
[2021-04-15 01:54] LABS: Hematocrit 27.2 % (37-47); Hemoglobin 8.6 g/dL (12.0-15.0)
[2021-04-15] MEDS: Midodrine HCl 5 MG Tablet 10 MG PO ×2 (05:12→14:56)
[2021-04-15] MEDS: Methadone 10 MG Tablet PO ×3 (05:12→21:11)
[2021-04-15] MEDS: 0.9% Normal Saline 1,000 ML 100 ML IV (05:13)
[2021-04-15] MEDS: Psyllium 1 PACKET PO ×2 (05:13→14:56)
[2021-04-15 07:11] LABS: Absolute Lymphocyte Count 1.58 X10^3/uL (0.83-4.51); Absolute Neutrophil Count 7.4 X10^3/uL (2.0-7.7); Basophil# 0.05 X10^3/uL; Basophil% 0.5 % (0-1); Eosinophil# 0.29 X10^3/uL; Eosinophils% 2.8 % (0-5); Hematocrit 26.1 % (37-47); Hemoglobin 8.5 g/dL (12.0-15.0); Lymphocyte # 1.58 X10^3/ul (0.83-4.51); Lymphocyte % 15.5 % (19-41); Mean Corp Hgb Conc 32.6 g/dL (32-36); Mean Corpuscular Hgb 29.8 pg (27.0-32.0); Mean Corpuscular Volume 91.6 fL (81-99); Mean Platelet Vol. 8.8 fl (6.2-12.0); Monocyte# 0.84 X10^3/uL; Monocyte% 8.2 % (0-10); NRBC Flagged by Analyzer 0 % (0-5); Neutrophil # 7.39 X10^3/uL (2.7-7.7); Neutrophil % 72.6 % (47-70); Platelet Count 265 K/mm3 (150-450); RBC Distribution Width CV 14.5 % (11.6-14.6); RBC Distribution Width SD 48.3 fl (35.1-43.9); Red Blood Count 2.85 M/mm3 (4.2-5.4); White Blood Count 10.2 K/mm3 (4.4-11.0)
[2021-04-15 07:49] LABS: ALB/GLOB Ratio 0.8 RATIO (0.9-2.4); AST(SGOT) 13 U/L (15-37); Alanine Aminotransfer ALT/SGPT 12 U/L (13-56); Albumin, Serum 2.3 g/dL (3.2-5.0); Alkaline Phosphatase 64 U/L (45-117); Anion Gap 7 (5-15); BUN 13 mg/dL (7-18); BUN/Creat Ratio 40.8 RATIO (10-20); Calcium,Total 7.7 mg/dL (8.5-10.1); Chloride 105 mmol/L (98-107); Creatinine, Serum 0.32 mg/dL (0.55-1.02); EST Glomerular Filtration Rate 217 mL/min (>60); Est Glom Filt Rate - Afr Amer 262 mL/min (>60); Estimated Creatinine Clearance 46.43 ml/min; Globulin 2.9 g/dL (2.2-4.2); Glucose 114 mg/dL (74-106); Potassium 2.9 mmol/L (3.5-5.1); Protein, Total 5.2 g/dL (6.4-8.2); Sodium Level 139 mmol/L (136-145)
[2021-04-15] MEDS: Senna/Docusate Sodium 1 Tablet 2 TABLET PO ×2 (11:40→21:11)
[2021-04-15] MEDS: Polyethylene Glycol 3350 17 GM PACKET PO (11:41)
[2021-04-15] MEDS: Benztropine 2 MG Tablet PO ×2 (11:41→21:10)
[2021-04-15] MEDS: Docusate Sodium 100 MG Capsule PO (11:41)
[2021-04-15] MEDS: DULoxetine Hcl 20 MG Capsule PO (11:41)
[2021-04-15] MEDS: Ergocalciferol 1.25 MG (50, 000 UNIT) Capsule PO (11:42)
[2021-04-15] MEDS: OXcarbazepine 600 MG Tablet PO ×2 (11:42→21:10)
[2021-04-15] MEDS: Calcium (Elemental) 500 MG Tablet PO ×2 (11:42→21:10)
[2021-04-15] MEDS: BRIMONIDINE 0.2% 5ML BOTTLE 1 DRP EACH EYE ×2 (11:43→21:10)
[2021-04-15] MEDS: Mirabegron 25 MG TAB.ER.24H PO ×2 (11:43→21:10)
[2021-04-15] MEDS: Umeclidinium Bromide Inhaler 1 PUFF INHALATION (11:44)
[2021-04-15] MEDS: Fluticasone/Salmeterol 232-14 Inhaler 1 PUFF INHALATION ×2 (11:45→21:10)
[2021-04-15 11:46] LABS: Magnesium 1.9 mg/dL (1.6-2.6)
[2021-04-15] MEDS: Multivitamins,Therapeutic Tablet 1 TABLET PO (11:47)
[2021-04-15] MEDS: Phenobarbital 32.4 MG Tablet PO ×2 (11:57→21:10)
[2021-04-15] MEDS: Potassium Chloride 10mEq/100mL 10 MEQ/100 ML IV.SOLN. 100 MEQ IV BOLUS ×4 (11:59→15:54)
--- NOTE | 2021-04-15 12:09 | CASEMGMT ---
Addendum entered by Michela Rosas 04/15/21 13:32: SW spoke with Yana at [facility] and patient does not need a pre-cert to return. Michela CARTER Original Note: SW is aware of patient from past admissions. SW is aware patient is from [facility]. SW met with patient. Introduced self. Patient confirms that she will return to [facility] when ready. SW also called Beata Chen from [facility]. This is patient's case consultant from [facility]. SW left a voice mail letting her know about patient's admission. Plan: d/c back to [facility] when medically ready. Michela CARTER
[2021-04-15] MEDS: Ipratropium/Albuterol Sulfate 3 ML AMPUL.NEB INHALATION ×2 (14:04→19:10)
[2021-04-15] MEDS: Furosemide 40 MG/4 ML Vial IV (14:56)
--- NOTE | 2021-04-15 15:06 | PCM.PN.HOSP ---
Subjective Subjective Follow-up on acute GI bleed: Patient was seen and examined. No more hematemesis or hematochezia overnight. Patient dropped her hemoglobin to 7.6 requiring 1 unit of packed RBC. She had a gastric emptying study this morning that was unremarkable. She underwent EGD yesterday that showed severe esophagitis. Objective Data Objective Data Vital Signs: Vital Signs Temp Pulse Resp BP Pulse Ox 98.5 F 91 14 119/64 97 04/15/21 15:01 04/15/21 15:01 04/15/21 15:01 04/15/21 15:01 04/15/21 15:01 Oxygen Flow Rate (L/min) 2 Oxygen Delivery Method Nasal Cannula Weight: 75.6 kg Body Mass Index (BMI) 26.9 Intake & Output: Intake and Output for Last 24 Hours 04/13/21 04/14/21 04/15/21 23:59 23:59 23:59 Intake Total 2332.33 / 2452.33 2400.66 / 2400.66 Output Total 200 / 200 Balance 2332.33 / 2252.33 2200.66 / 2200.66 Lab / Micro Data Result Diagrams: 04/15/21 06:50 04/15/21 06:50 Labs: Laboratory Results - last 24 hr 04/14/21 06:45: Crossmatch See Detail 04/14/21 16:55: Hgb 8.6 L, Hct 27.3 L 04/14/21 21:24: Hgb 7.6 L, Hct 22.8 L 04/15/21 01:48: Hgb 8.6 L, Hct 27.2 L 04/15/21 06:50: WBC 10.2, RBC 2.85 L, Hgb 8.5 L, Hct 26.1 L, MCV 91.6, MCH 29.8, MCHC 32.6, RDW Std Deviation 48.3 H, RDW Coeff of Jordin 14.5, Plt Count 265, MPV 8.8, Immature Gran % (Auto) 0.400, Neut % (Auto) 72.6 H, Lymph % (Auto) 15.5 L, [place] % (Auto) 8.2, Eos % (Auto) 2.8, Baso % (Auto) 0.5, Absolute Neuts (auto) 7.4, Absolute Lymphs (auto) 1.58, Nucleated RBC % 0 04/15/21 06:50: Sodium 139, Potassium 2.9 L, Chloride 105, Carbon Dioxide 27.0, Anion Gap 7, BUN 13, Creatinine 0.32 L, Estim Creat Clear Calc 46.43, Est GFR (MDRD) Af Amer 262, Est GFR (MDRD) Non-Af 217, BUN/Creatinine Ratio 40.8 H, Glucose 114 H, Calcium 7.7 L, Total Bilirubin 0.30, AST 13 L, ALT 12 L, Alkaline Phosphatase 64, Total Protein 5.2 L, Albumin 2.3 L, Globulin 2.9, Albumin/Globulin Ratio 0.8 L 04/15/21 06:50: Magnesium 1.9 Radiography Diagnostic Testing: Radiology Impression Gastric Emptying Nuclear Medicine 04/15/21 16:21 IMPRESSION: 1. NORMAL 99m Tc sulfur colloid semi-solid phase (oatmeal) gastric emptying imaging examination. A. There is normal and preserved semi-solid phase gastric emptying compared to normal controls with maintained first order kinetics throughout all components of the examination. (Maria Del Carmen et al, J Nucl Med Tech 38: 186, 2010). B. Overall compared to the prior semisolid phase gastric emptying study dated 04/04/2019, there is no significant interval change. Electronically Signed: Tomi Suarez, at 12:41 EDT Tel , Service support , Physical Exam Narrative Physical exam: General: Alert, Oriented x3, Cooperative, appears more comfortable HEENT: Atraumatic Oral: Moist Mucosa Neck: Supple Lungs: Clear to auscultation Cardiovascular: HS I+II, regular, no murmurs Abdomen: Bowel Sounds Present, Soft, Non Tender Extremities: No edema Assessment & Plan Assessment/Plan (1) Hematemesis: (2) Abdominal pain: (3) Acute GI bleeding: (4) Intractable nausea and vomiting: (5) Acquired gastric outlet stenosis: PLAN: 1. Acute GI bleed secondary to erosive esophagitis Status post EGD on 04/14/21 Continue on IV PPI drip 2. Acute blood loss anemia, unclear of exact etiology for sudden drop in hemoglobin Patient was admitted with hemoglobin of 11, drop hemoglobin to 7.6 GI following Will continue to monitor H&H 3. Hypokalemia/hypomagnesemia, replace, recheck in a.m. 4. Acute intractable nausea and vomiting, appears to have resolved Gastric emptying study today was negative 5. Hyponatremia, resolved 6. Rest of her chronic medical conditions including seizure disorder, hyperlipidemia, tardive dyskinesia/COPD/hypothyroidism/CHUY Patient's home medications reviewed Charges/Coding Visit Charges Inpatient E&M: 86346 Subs Hosp L2
--- NOTE | 2021-04-15 16:21 | NM_ITS ---
CLINICAL: 70-year-old female with reported history of clinical gastroparesis. SEMI-SOLID PHASE 99m Tc SULFUR COLLOID GASTRIC EMPTYING STUDY COMPARISON: Previous gastric emptying study report 04/04/2019, CT of the abdomen-pelvis report 04/14/2021 FINDINGS: The patient was administered 1.2 mCi of 99m Tc sulfur colloid mixed with oatmeal and consumed per os. Image acquisitions in the anterior-posterior projections for a total of 60 minutes. There is prompt visualization of the stomach. There is no gastroesophageal reflux identified. The T ? emptying was calculated to be 54.39 minutes, (Normal: 12-56 minutes) compared to 32.28 minutes defined on the previous examination. NM/Gastric Emptying Study IMPRESSION: 1. NORMAL 99m Tc sulfur colloid semi-solid phase (oatmeal) gastric emptying imaging examination. A. There is normal and preserved semi-solid phase gastric emptying compared to normal controls with maintained first order kinetics throughout all components of the examination. (Maria Del Carmen et al, J Nucl Med Tech 38: 186, 2010). B. Overall compared to the prior semisolid phase gastric emptying study dated 04/04/2019, there is no significant interval change. Electronically Signed: Tomi Suarez DO at 12:41 EDT Tel , Service support ,
[2021-04-15 17:11] LABS: Hematocrit 28.7 % (37-47)
--- NOTE | 2021-04-15 18:02 | PN.GI_ITS ---
Subjective Subjective No episodes of nausea vomiting overnight. She did undergo gastric emptying study today. She did not have any problems during that study. She does not have abdominal pain but she is having back pain. Objective Data Objective Data Vital Signs: Vital Signs Temp Pulse Resp BP Pulse Ox 98.5 F 95 14 119/64 97 04/15/21 15:01 04/15/21 15:15 04/15/21 15:01 04/15/21 15:01 04/15/21 15:01 Oxygen Flow Rate (L/min) 2 Oxygen Delivery Method Nasal Cannula Weight: 166 lb 10.711 oz Body Mass Index (BMI) 26.9 Intake & Output: Intake and Output for Last 24 Hours 04/13/21 04/14/21 04/15/21 23:59 23:59 23:59 Intake Total 2332.33 / 2452.33 2600.66 / 2600.66 Output Total 200 / 200 Balance 2332.33 / 2252.33 2400.66 / 2400.66 Lab / Micro Data Result Diagrams: 04/15/21 17:03 04/15/21 06:50 Labs: Laboratory Results - last 24 hr 04/14/21 06:45: Crossmatch See Detail 04/14/21 21:24: Hgb 7.6 L, Hct 22.8 L 04/15/21 01:48: Hgb 8.6 L, Hct 27.2 L 04/15/21 06:50: WBC 10.2, RBC 2.85 L, Hgb 8.5 L, Hct 26.1 L, MCV 91.6, MCH 29.8, MCHC 32.6, RDW Std Deviation 48.3 H, RDW Coeff of Jordin 14.5, Plt Count 265, MPV 8.8, Immature Gran % (Auto) 0.400, Neut % (Auto) 72.6 H, Lymph % (Auto) 15.5 L, [place] % (Auto) 8.2, Eos % (Auto) 2.8, Baso % (Auto) 0.5, Absolute Neuts (auto) 7.4, Absolute Lymphs (auto) 1.58, Nucleated RBC % 0 04/15/21 06:50: Sodium 139, Potassium 2.9 L, Chloride 105, Carbon Dioxide 27.0, Anion Gap 7, BUN 13, Creatinine 0.32 L, Estim Creat Clear Calc 46.43, Est GFR (MDRD) Af Amer 262, Est GFR (MDRD) Non-Af 217, BUN/Creatinine Ratio 40.8 H, Glucose 114 H, Calcium 7.7 L, Total Bilirubin 0.30, AST 13 L, ALT 12 L, Alkaline Phosphatase 64, Total Protein 5.2 L, Albumin 2.3 L, Globulin 2.9, Albumin/Globulin Ratio 0.8 L 04/15/21 06:50: Magnesium 1.9 04/15/21 17:03: Hgb 9.0 L, Hct 28.7 L Radiography Diagnostic Testing: Radiology Impression Gastric Emptying Nuclear Medicine 04/15/21 16:21 IMPRESSION: 1. NORMAL 99m Tc sulfur colloid semi-solid phase (oatmeal) gastric emptying imaging examination. A. There is normal and preserved semi-solid phase gastric emptying compared to normal controls with maintained first order kinetics throughout all components of the examination. (Maria Del Carmen et al, J Nucl Med Tech 38: 186, 2010). B. Overall compared to the prior semisolid phase gastric emptying study dated 04/04/2019, there is no significant interval change. Electronically Signed: Tomi Suarez DO at 12:41 EDT Tel , Service support , Physical Exam Const alert General Appearance: cooperative Orientation / Consciousness: oriented to person HEENT hearing grossly normal bilaterally Head and Scalp: normal to inspection Face and Sinus: face symmetric Nose: external nose normal Mouth: oral and palatal mucosa normal Eyes conjunctivae normal General Eye: normal appearance of both eyes Neck full ROM General: normal visual inspection Lymph Lymphatic: no lymphadenopathy noted Chest inspection of chest normal and palpation of chest normal Chest: symmetrical chest wall rise Resp normal respiratory effort Effort and Inspection: able to speak in complete sentences Cardio regular rate GI non-distended Percussion: normal to percussion Rectal Exam: deferred Neuro Speech: speech normal Gait (Neuro): normal gait Assessment & Plan Assessment/Plan (1) Lower GI bleeding: PLAN: The differential diagnosis for lower GI bleed would be hemorrhoidal, diverticular, ischemia and less likely neoplasia. Also the differential diagnosis could be an upper GI bleed with rapid transit. (2) Hematemesis: PLAN: There has been no more hematemesis since being in the hospital at this time. We will maintain her on PPI and I will start a scopolamine patch. (3) Abdominal pain: PLAN: I suspect that her hematemesis could have been old blood from her previous upper GI bleed that she had from severe erosive esophagitis. She still has erosive esophagitis at this time. I do not understand at this time why she gets nauseous or has abdominal pain. It could be secondary to ischemic colitis. I will only see that on her colonoscopy. Charges/Coding Visit Charges Inpatient E&M: 86189 Subs Hosp L2
[2021-04-15] MEDS: Electrolyte Solution/Peg's 4000 ML 2000 ML PO (18:45)
[2021-04-15] MEDS: Bisacodyl 5 MG Tablet PO (18:45)
[2021-04-15] MEDS: Pramipexole Di-HCl 1 MG Tablet PO (21:10)
[2021-04-15] MEDS: Mirtazapine 15 MG Tablet 7.5 MG PO (21:11)
[2021-04-15] MEDS: Atorvastatin Calcium 40 MG Tablet PO (21:11)
[2021-04-15] MEDS: Temazepam 15 MG Capsule 30 MG PO (21:21)
[2021-04-16] VITALS (13 sets, daily range): BP systolic 81–159; BP diastolic 46–80; PULSE 78–106; RESP 14–22; TEMP 36.6–37.3; O2SAT 95–99
--- NOTE | 2021-04-16 05:00 | EKG12_ITS ---
Test Reason : AM EKG Blood Pressure : / mmHG Vent. Rate : 092 BPM Atrial Rate : 092 BPM P-R Int : 148 ms QRS Dur : 092 ms QT Int : 340 ms P-R-T Axes : 081 018 053 degrees QTc Int : 420 ms Normal sinus rhythm Low voltage QRS (Limb Leads) Nonspecific T wave abnormality Abnormal ECG Confirmed by JAMES LEACH, LUZ ([id number]), manager editorial WESLY CASTAÑEDA ([id number]) on 04/30/2021 9:06:43 AM Referred By: CODIE Confirmed By:LUZ RAMIREZ MD
[2021-04-16] MEDS: Midodrine HCl 5 MG Tablet 10 MG PO ×3 (05:28→22:12)
[2021-04-16] MEDS: Methadone 10 MG Tablet PO ×3 (05:28→22:11)
[2021-04-16] MEDS: Magnesium Citrate 300 ML PO (06:20)
[2021-04-16] MEDS: Ondansetron 4 MG/2 ML Vial IV ×2 (06:21→14:41)
[2021-04-16 07:06] LABS: Hematocrit 30.4 % (37-47); Hemoglobin 9.8 g/dL (12.0-15.0); Mean Corp Hgb Conc 32.2 g/dL (32-36); Mean Corpuscular Hgb 29.7 pg (27.0-32.0); Mean Corpuscular Volume 92.1 fL (81-99); Platelet Count 276 K/mm3 (150-450); RBC Distribution Width CV 14.6 % (11.6-14.6); RBC Distribution Width SD 49.1 fl (35.1-43.9); White Blood Count 11.2 K/mm3 (4.4-11.0)
--- NOTE | 2021-04-16 07:27 | CPS ---
Pt stated she was throwing up and did not want breathing tx at this time.
[2021-04-16 07:43] LABS: Anion Gap 8 (5-15); BUN 6 mg/dL (7-18); Calcium,Total 8.1 mg/dL (8.5-10.1); Chloride 99 mmol/L (98-107); Creatinine, Serum 0.33 mg/dL (0.55-1.02); EST Glomerular Filtration Rate 206 mL/min (>60); Est Glom Filt Rate - Afr Amer 250 mL/min (>60); Estimated Creatinine Clearance 46.43 ml/min; Glucose 154 mg/dL (74-106); Potassium 2.8 mmol/L (3.5-5.1); Sodium Level 136 mmol/L (136-145)
--- NOTE | 2021-04-16 11:42 | PCM.PN.HOSP ---
Subjective Subjective Follow-up on Acute GI bleed: Patient was seen and examined. She complains of nausea. Bowel prep did not go well yesterday. Colonoscopy is planned for this afternoon. Objective Data Objective Data Vital Signs: Vital Signs Temp Pulse Resp BP Pulse Ox 97.9 F 97 16 158/80 H 96 04/16/21 11:02 04/16/21 11:02 04/16/21 11:02 04/16/21 11:02 04/16/21 11:02 Oxygen Flow Rate (L/min) 2 Oxygen Delivery Method Nasal Cannula Weight: 77.1 kg Body Mass Index (BMI) 27.7 Intake & Output: Intake and Output for Last 24 Hours 04/14/21 04/15/21 04/16/21 23:59 23:59 23:59 Intake Total 2332.33 / 2452.33 4950.66 / 4950.66 400 / 400 Output Total 1900 / 1900 Balance 2332.33 / 2252.33 3050.66 / 3050.66 400 / 400 Lab / Micro Data Result Diagrams: 04/16/21 06:42 04/16/21 06:42 Labs: Laboratory Results - last 24 hr 04/15/21 06:50: Magnesium 1.9 04/15/21 17:03: Hgb 9.0 L, Hct 28.7 L 04/16/21 06:42: WBC 11.2 H, RBC 3.30 L, Hgb 9.8 L, Hct 30.4 L, MCV 92.1, MCH 29.7, MCHC 32.2, RDW Std Deviation 49.1 H, RDW Coeff of Jordin 14.6, Plt Count 276, MPV 9.0 04/16/21 06:42: Sodium 136, Potassium 2.8 L, Chloride 99, Carbon Dioxide 29.0, Anion Gap 8, BUN 6 L, Creatinine 0.33 L, Estim Creat Clear Calc 46.43, Est GFR (MDRD) Af Amer 250, Est GFR (MDRD) Non-Af 206, BUN/Creatinine Ratio 18.0, Glucose 154 H, Calcium 8.1 L, TSH 0.60 04/16/21 06:42: Magnesium 2.0 Radiography Diagnostic Testing: Radiology Impression Gastric Emptying Nuclear Medicine 04/15/21 16:21 IMPRESSION: 1. NORMAL 99m Tc sulfur colloid semi-solid phase (oatmeal) gastric emptying imaging examination. A. There is normal and preserved semi-solid phase gastric emptying compared to normal controls with maintained first order kinetics throughout all components of the examination. (Maria Del Carmen et al, J Nucl Med Tech 38: 186, 2010). B. Overall compared to the prior semisolid phase gastric emptying study dated 04/04/2019, there is no significant interval change. Electronically Signed: Tomi Erick, DO at 12:41 EDT Tel , Service support , Physical Exam Narrative Physical exam: General: Alert, Oriented x3, Cooperative, appears more comfortable HEENT: Atraumatic Oral: Moist Mucosa Neck: Supple Lungs: Clear to auscultation Cardiovascular: HS I+II, regular, no murmurs Abdomen: Bowel Sounds Present, Soft, Non Tender Extremities: No edema Assessment & Plan Assessment/Plan (1) Hematemesis: QUALIFIERS: Nausea presence: with nausea Qualified Code(s): K92.0 - Hematemesis (2) Abdominal pain: QUALIFIERS: Abdominal location: generalized Qualified Code(s): R10.84 - Generalized abdominal pain (3) Acute GI bleeding: (4) Intractable nausea and vomiting: (5) Acquired gastric outlet stenosis: PLAN: 1. Acute GI bleed secondary to erosive esophagitis Status post EGD on 04/14/21 Colonoscopy planned for today Continue on IV PPI drip 2. Acute blood loss anemia, unclear of exact etiology for sudden drop in hemoglobin Patient was admitted with hemoglobin of 11, drop hemoglobin to 7.6 Status post 1 unit packed RBC Hemoglobin today is 9.8. GI following 3. Hypokalemia/hypomagnesemia, replaced, recheck in a.m. 4. Acute intractable nausea and vomiting, waxes and wanes Gastric emptying study was negative 5. Hyponatremia, resolved 6. Rest of her chronic medical conditions including seizure disorder, hyperlipidemia, tardive dyskinesia/COPD/hypothyroidism/CHUY Patient's home medications reviewed Charges/Coding Visit Charges Inpatient E&M: 82946 Subs Hosp L2
[2021-04-16] MEDS: Metoclopramide 10 MG/2 ML Vial 5 MG IV ×3 (11:51→23:38)
[2021-04-16] MEDS: Phenobarbital 32.4 MG Tablet PO ×2 (12:51→22:11)
[2021-04-16] MEDS: DULoxetine Hcl 20 MG Capsule PO (12:51)
[2021-04-16] MEDS: Polyethylene Glycol 3350 17 GM PACKET PO (12:51)
[2021-04-16] MEDS: Ferrous Sulfate 325 MG Tablet PO (12:52)
[2021-04-16] MEDS: OXcarbazepine 600 MG Tablet PO ×2 (12:52→22:16)
[2021-04-16] MEDS: Benztropine 2 MG Tablet PO ×2 (12:52→22:14)
[2021-04-16] MEDS: Multivitamins,Therapeutic Tablet 1 TABLET PO (12:52)
[2021-04-16] MEDS: Docusate Sodium 100 MG Capsule PO (12:53)
[2021-04-16] MEDS: Senna/Docusate Sodium 1 Tablet 2 TABLET PO ×2 (12:53→22:13)
[2021-04-16] MEDS: Mirabegron 25 MG TAB.ER.24H PO ×2 (12:53→22:13)
[2021-04-16] MEDS: Fluticasone/Salmeterol 232-14 Inhaler 1 PUFF INHALATION ×2 (12:54→22:14)
[2021-04-16] MEDS: Calcium (Elemental) 500 MG Tablet PO ×2 (12:54→22:15)
[2021-04-16] MEDS: Umeclidinium Bromide Inhaler 1 PUFF INHALATION (12:54)
[2021-04-16] MEDS: BRIMONIDINE 0.2% 5ML BOTTLE 1 DRP EACH EYE ×2 (12:54→22:12)
[2021-04-16] MEDS: Potassium Chloride Oral Tablet 20 MEQ 60 MEQ PO (12:55)
[2021-04-16] MEDS: Potassium Chloride 10mEq/100mL 10 MEQ/100 ML IV.SOLN. 100 MEQ IV BOLUS ×4 (13:04→17:01)
[2021-04-16] MEDS: Ipratropium/Albuterol Sulfate 3 ML AMPUL.NEB INHALATION ×2 (14:20→19:12)
[2021-04-16] MEDS: 0.9% Saline Lock 10 ML Syringe IV ×3 (14:41→23:39)
[2021-04-16] MEDS: Bisacodyl 5 MG Tablet 20 MG PO (14:44)
[2021-04-16] MEDS: Polyethylene Glycol 3350 BOWEL PREP PO (17:00)
[2021-04-16] MEDS: Mag Hydrox/Al Hydrox/Simeth 30 ML UDC PO (17:00)
--- NOTE | 2021-04-16 19:16 | EX.PCM.PN.GI ---
Subjective Subjective Patient was not able to tolerate GoLYTELY prep. She has been very nauseous. The prep was switched And the colonoscopy scheduled for tomorrow. Objective Data Objective Data Vital Signs: Vital Signs Temp Pulse Resp BP Pulse Ox 98.1 F 83 18 138/76 H 99 04/16/21 16:08 04/16/21 19:12 04/16/21 19:12 04/16/21 16:08 04/16/21 16:08 Oxygen Flow Rate (L/min) 2 Oxygen Delivery Method Nasal Cannula Weight: 169 lb 15.622 oz Body Mass Index (BMI) 27.7 Intake & Output: Intake and Output for Last 24 Hours 04/14/21 04/15/21 04/16/21 23:59 23:59 23:59 Intake Total 2332.33 / 2452.33 4950.66 / 4950.66 1640 / 1640 Output Total 1900 / 1900 Balance 2332.33 / 2252.33 3050.66 / 3050.66 1639 / 1639 Lab / Micro Data Result Diagrams: 04/16/21 06:42 04/16/21 06:42 Labs: Laboratory Results - last 24 hr 04/16/21 06:42: WBC 11.2 H, RBC 3.30 L, Hgb 9.8 L, Hct 30.4 L, MCV 92.1, MCH 29.7, MCHC 32.2, RDW Std Deviation 49.1 H, RDW Coeff of Jordin 14.6, Plt Count 276, MPV 9.0 04/16/21 06:42: Sodium 136, Potassium 2.8 L, Chloride 99, Carbon Dioxide 29.0, Anion Gap 8, BUN 6 L, Creatinine 0.33 L, Estim Creat Clear Calc 46.43, Est GFR (MDRD) Af Amer 250, Est GFR (MDRD) Non-Af 206, BUN/Creatinine Ratio 18.0, Glucose 154 H, Calcium 8.1 L, TSH 0.60 04/16/21 06:42: Magnesium 2.0 Physical Exam Const alert General Appearance: cooperative Orientation / Consciousness: oriented to person HEENT hearing grossly normal bilaterally Head and Scalp: normal to inspection Face and Sinus: face symmetric Nose: external nose normal Mouth: oral and palatal mucosa normal Eyes conjunctivae normal General Eye: normal appearance of both eyes Neck full ROM General: normal visual inspection Lymph Lymphatic: no lymphadenopathy noted Chest inspection of chest normal and palpation of chest normal Chest: symmetrical chest wall rise Resp normal respiratory effort Effort and Inspection: able to speak in complete sentences Cardio regular rate GI non-distended Percussion: normal to percussion Rectal Exam: deferred Neuro Speech: speech normal Gait (Neuro): normal gait Assessment & Plan Assessment/Plan (1) Lower GI bleeding: PLAN: The differential diagnosis for her lower GI bleeding would include diverticular bleeding, ischemic colitis because of history of abdominal pain, hemorrhoidal bleeding, upper GI bleed with rapid transit. She will undergo colonoscopy tomorrow for further evaluation and Recommendations we will proceed After the procedure. (2) Hematemesis: QUALIFIERS: Nausea presence: with nausea Qualified Code(s): K92.0 - Hematemesis PLAN: Hematemesis likely from erosive esophagitis and large hiatal hernia. Continue PPI therapy and antinausea therapy. (3) Abdominal pain: QUALIFIERS: Abdominal location: generalized Qualified Code(s): R10.84 - Generalized abdominal pain
[2021-04-16] MEDS: Atorvastatin Calcium 40 MG Tablet PO (22:13)
[2021-04-16] MEDS: Pramipexole Di-HCl 1 MG Tablet PO (22:15)
[2021-04-16] MEDS: Mirtazapine 15 MG Tablet 7.5 MG PO (22:15)
[2021-04-16] MEDS: Temazepam 15 MG Capsule 30 MG PO (22:25)
[2021-04-17] VITALS (32 sets, daily range): BP systolic 59–145; BP diastolic 32–84; PULSE 67–100; RESP 10–20; TEMP 36.1–37.4; O2SAT 95–100
[2021-04-17 00:43] LABS: Hematocrit 26.4 % (37-47); Hemoglobin 8.4 g/dL (12.0-15.0)
--- NOTE | 2021-04-17 01:04 | PCM.HOSP.N ---
Hospitalist Note Notified by Jennifer REYES that patient's blood pressure has been slowly trending down this afternoon into this evening, currently 80s over 50s. Patient was originally admitted for GI bleed, H&H stat ordered. While waiting for H&H to result notified again by Jennifer REYES that patient's blood pressure is now 50s over 40s via automatic blood pressure. Arrived at bedside and performed manual blood pressure, 78/56. Repeat H&H result hemoglobin 8.4 down from 9.6. 500 cc bolus administered as well as order to transfuse held unit of blood. Patient received 1 unit packed red blood cells 04/14/2021. Patient is currently undergoing bowel prep for colonoscopy tomorrow, stool noted to be black and liquid. Discussed plan of care with who was agreeable with treatment plan.
--- NOTE | 2021-04-17 01:14 | NURSING ---
Called to room by primary RN d/t BP 50s/40s. Texted Kareem EDUCATION ASSOCIATE to call regarding pt status. Manual BP obtained by this RN, 64/32. Pt in Trendelenburg position, awakes to voice but drowsy. EDUCATION ASSOCIATE at bedside, orders given to primary RN.
--- NOTE | 2021-04-17 01:41 | NURSING ---
Chapis Silva called to room d/t low bp readings, ordered 500ml bolus and to transfuse 1 unit of blood that was on hold. New IV inserted to left wrist #20. Previous site to rt shoulder infiltrated.
[2021-04-17] MEDS: 0.9% Normal Saline 1,000 ML 500 ML IV (04:42)
[2021-04-17] MEDS: Midodrine HCl 5 MG Tablet 10 MG PO ×3 (05:10→20:31)
[2021-04-17] MEDS: 0.9% Saline Lock 10 ML Syringe IV ×2 (05:10→17:20)
[2021-04-17] MEDS: Metoclopramide 10 MG/2 ML Vial 5 MG IV ×3 (05:10→23:32)
[2021-04-17 05:18] LABS: Absolute Lymphocyte Count 2.02 X10^3/uL (0.83-4.51); Absolute Neutrophil Count 4.9 X10^3/uL (2.0-7.7); Basophil# 0.05 X10^3/uL; Basophil% 0.6 % (0-1); Eosinophils% 8.1 % (0-5); Hematocrit 27.8 % (37-47); Hemoglobin 9.1 g/dL (12.0-15.0); Lymphocyte # 2.02 X10^3/ul (0.83-4.51); Lymphocyte % 23.5 % (19-41); Mean Corp Hgb Conc 32.7 g/dL (32-36); Mean Corpuscular Hgb 30.3 pg (27.0-32.0); Mean Corpuscular Volume 92.7 fL (81-99); Mean Platelet Vol. 8.5 fl (6.2-12.0); Monocyte# 0.86 X10^3/uL; NRBC Flagged by Analyzer 0 % (0-5); Neutrophil # 4.94 X10^3/uL (2.7-7.7); Neutrophil % 57.6 % (47-70); Platelet Count 244 K/mm3 (150-450); RBC Distribution Width CV 14.3 % (11.6-14.6); RBC Distribution Width SD 48.1 fl (35.1-43.9); White Blood Count 8.6 K/mm3 (4.4-11.0)
[2021-04-17 05:47] LABS: ALB/GLOB Ratio 0.7 RATIO (0.9-2.4); AST(SGOT) 13 U/L (15-37); Alanine Aminotransfer ALT/SGPT 13 U/L (13-56); Alkaline Phosphatase 59 U/L (45-117); Anion Gap 4 (5-15); BUN 5 mg/dL (7-18); BUN/Creat Ratio 16.8 RATIO (10-20); Calcium,Total 7.5 mg/dL (8.5-10.1); Chloride 103 mmol/L (98-107); EST Glomerular Filtration Rate 235 mL/min (>60); Est Glom Filt Rate - Afr Amer 284 mL/min (>60); Estimated Creatinine Clearance 46.43 ml/min; Globulin 2.9 g/dL (2.2-4.2); Glucose 125 mg/dL (74-106); Potassium 3.2 mmol/L (3.5-5.1); Protein, Total 4.9 g/dL (6.4-8.2); Sodium Level 137 mmol/L (136-145)
[2021-04-17] MEDS: 0.9% Normal Saline 1,000 ML 50 ML IV (06:38)
[2021-04-17] MEDS: Ipratropium/Albuterol Sulfate 3 ML AMPUL.NEB INHALATION ×3 (07:24→19:13)
[2021-04-17] MEDS: Potassium Chloride Oral Tablet 20 MEQ 60 MEQ PO (09:00)
--- NOTE | 2021-04-17 10:10 | CASEMGMT ---
Updated clinicals faxed to [facility]. 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
--- NOTE | 2021-04-17 12:00 | COLBX_PTH ---
PATIENT: XANDER RAMIREZ LOC: PCU U#:[id number] AGE/SX: 70/F ROOM: [facility] RE04/14/[address]: Dr. Julia Noonan MD : 1950 BED: 1 DIS: 04/18/2021 SPEC #: [id number] RECD: 04/17/21 15:58 STATUS: DWAYNE REQ #: [id number] DANNY: 04/17/21 12:[address]: Jesus Lobato DEPT: SURGICAL PATHOLOGY RECD BY: Aram Noel ENTERED: 04/20/21 08:05 SP TYPE: COLON BX OTHR DR: MD Dr. Saulo Choi MD Tissues: Rectum, NOS Procedures: Surgery Specimen Level IV Comments: @ Ordering doctor for SUIV edited from to @ by DEE DEE at 04/20/21 1005 @ Submitting doctor edited from to @ by DEE DEE at 04/20/21 1005 HEADER OPERATION: Colonoscopy (MAC) PRE-OP DIAGNOSIS: Lower GI bleeding, hematemesis, abdominal pain TISSUE SUBMITTED: Rectal ulcer biopsy MICROSCOPIC DIAGNOSIS Rectal ulcer, biopsy: Mucosal ulceration and associated acute colitis. Fibrinopurulent material. Focal hyperplastic change See comment. AM:ethan 04/21/2021 COMMENT No glandular distortion is present. No fissuring ulcers, transmural lymphoid aggregates or crypt abscesses are seen. Clinical correlation is suggested. MICROSCOPIC DESCRIPTION Slides are reviewed. GROSS DESCRIPTION Received in fixative is one container labeled with the patient's name and designated rectal ulcer biopsy. The specimen consists of multiple irregular fragments of light johnson soft tissue that in aggregate measure 1.5 x 1 x 0.1 cm. The specimen is totally submitted in one cassette. / ANDIE:ethan 04/20/21 TC:2 CPT: 17633
--- NOTE | 2021-04-17 12:58 | OP.COLON_ITS ---
Patient Name: Bela Sandoval Procedure Date: 04/17/2021 11:50 AM Date of : 1950 Age: 70 Procedure: Colonoscopy Indications: Acute post hemorrhagic anemia Providers: Jesus Lobato DO Medicines: See the Anesthesia note for documentation of the administered medications Patient Profile: This is a 70 year old female. Refer to note in patient chart for documentation of history and physical. Last Colonoscopy: 3 years ago. Complications: No immediate complications. Procedure: Pre-Anesthesia Assessment: - Prior to the procedure, a History and Physical was performed, and patient medications and allergies were reviewed. The patient is competent. The risks and benefits of the procedure and the sedation options and risks were discussed with the patient. All questions were answered and informed consent was obtained. Patient identification and proposed procedure were verified by the physician in the pre-procedure area. Mental Status Examination: alert and oriented. Respiratory Examination: clear to auscultation. Prophylactic Antibiotics: The patient does not require prophylactic antibiotics. Prior Anticoagulants: The patient has taken no previous anticoagulant or antiplatelet agents. ASA Grade Assessment: II - A patient with mild systemic disease. After reviewing the risks and benefits, the patient was deemed in satisfactory condition to undergo the procedure. The anesthesia plan was to use moderate sedation / analgesia (conscious sedation). Immediately prior to administration of medications, the patient was re-assessed for adequacy to receive sedatives. The heart rate, respiratory rate, oxygen saturations, blood pressure, adequacy of pulmonary ventilation, and response to care were monitored throughout the procedure. The physical status of the patient was re-assessed after the procedure. After I obtained informed consent, the scope was passed under direct vision. Throughout the procedure, the patient's blood pressure, pulse, and oxygen saturations were monitored continuously. The Colonoscope was introduced through the anus and advanced to the cecum, identified by appendiceal orifice and ileocecal valve. The colonoscopy was performed without difficulty. The patient tolerated the procedure well. The quality of the bowel preparation was inadequate. Moderate Sedation: Moderate (conscious) sedation was administered by the endoscopy nurse and supervised by the endoscopist. The patient's oxygen saturation, heart rate, blood pressure and response to care were monitored. Total physician intraservice time was 15 minutes. Scope In: 12:18:17 PM Scope Withdrawal Time 0 hours 13 minutes 27 seconds Scope Out: 12:40:47 PM Total Procedure Duration Time 0 hours 22 minutes 30 seconds Findings: Hemorrhoids were found on perianal exam. A large amount of stool was found in the ascending colon. A large amount of semi-solid solid stool was found in the cecum, precluding visualization. Multiple small and large-mouthed diverticula were found in the sigmoid colon, descending colon, splenic flexure and left colon. There was evidence of diverticular spasm. A single (solitary) one mm ulcer was found in the rectum. No bleeding was present. Stigmata of recent bleeding were present. Biopsies were taken with a cold forceps for histology. Verification of patient identification for the specimen was done. Estimated blood loss was minimal. The exam was otherwise without abnormality on direct and retroflexion views. Impression: - Preparation of the colon was inadequate. - Hemorrhoids found on perianal exam. - Stool in the ascending colon. - Stool in the cecum. - Moderate diverticulosis in the sigmoid colon, in the descending colon, at the splenic flexure and in the left colon. There was evidence of diverticular spasm. - A single (solitary) ulcer in the rectum. Biopsied. - The examination was otherwise normal on direct and retroflexion views. Recommendation: - [facility]. - High fiber diet daily. - Continue present medications. - Use FiberCon 2 tablets PO daily daily. - Await pathology results. - Rowasa enemas nightly - Repeat colonoscopy in 2 months for surveillance based on pathology results. Procedure Code(s): --- Professional --- 11284, Colonoscopy, flexible; with biopsy, single or multiple G0500, Moderate sedation services provided by the same physician or other qualified health toddler caregiver performing a gastrointestinal endoscopic service that sedation supports, requiring the presence of an independent trained observer to assist in the monitoring of the patient's level of consciousness and physiological status; initial 15 minutes of intra-service time; patient age 5 years or older (additional time may be reported with 80513, as appropriate) Diagnosis Code(s): --- Professional --- K64.9, Unspecified hemorrhoids K62.6, Ulcer of anus and rectum D62, Acute posthemorrhagic anemia K57.30, Diverticulosis of large intestine without perforation or abscess without bleeding CPT copyright 2017 [employer]. All rights reserved. The codes documented in this report are preliminary and upon steamtable worker review may be revised to meet current compliance requirements. Jesus Lobato DO 04/17/2021 12:58:28 PM This report has been signed electronically. Number of Addenda: 1 Note Initiated On: 04/17/2021 11:50 AM Addendum Number: 1 Addendum Date: 02/18/2022 4:50:58 PM MAC was used instead of moderate sedation for this patient. Jesus Lobato DO 02/18/2022 4:51:03 PM This report has been signed electronically.
--- NOTE | 2021-04-17 12:59 | OP.CCLET_ITS ---
02/18/2022 Saulo Pagan MD [address] [id number] Re : Colonoscopy procedure for Bela Sandoval Dear Dr. Pagan This procedure was performed on Saturday, April 17, 2021. My impressions and recommendations are as follows: Impressions : - Preparation of the colon was inadequate. - Hemorrhoids found on perianal exam. - Stool in the ascending colon. - Stool in the cecum. - Moderate diverticulosis in the sigmoid colon, in the descending colon, at the splenic flexure and in the left colon. There was evidence of diverticular spasm. - A single (solitary) ulcer in the rectum. Biopsied. - The examination was otherwise normal on direct and retroflexion views. Recommendations : - [facility] to [facility] care. - High fiber diet daily. - Continue present medications. - Use FiberCon 2 tablets PO daily daily. - Await pathology results. - Rowasa enemas nightly - Repeat colonoscopy in 2 months for surveillance based on pathology results. My findings are described in the full procedure note, which is enclosed. If I can be of further assistance, please feel free to contact me at . Sincerely, Jesus Lobato, 04/17/2021 12:58:28 PM This report has been signed electronically.
--- NOTE | 2021-04-17 14:03 | PN.HOSP_ITS ---
Subjective Subjective Follow-up on Acute GI bleed: Patient seen and examined. She had a colonoscopy done -findings showed a single ulcer in the rectum which was biopsied. Patient feels improved. She denied any new complaints. Objective Data Objective Data Vital Signs: Vital Signs Temp Pulse Resp BP Pulse Ox 99.2 F H 80 20 H 126/63 H 99 04/17/21 13:49 04/17/21 13:49 04/17/21 13:49 04/17/21 13:49 04/17/21 13:49 Oxygen Flow Rate (L/min) 2 Oxygen Delivery Method Nasal Cannula Weight: 76.6 kg Body Mass Index (BMI) 27.7 Intake & Output: Intake and Output for Last 24 Hours 04/15/21 04/16/21 04/17/21 23:59 23:59 23:59 Intake Total 4950.66 / 4950.66 4040 / 4040 Output Total 1900 / 1900 201 / 201 0 / 0 Balance 3050.66 / 3050.66 3839 / 3839 Lab / Micro Data Result Diagrams: 04/17/21 05:05 04/17/21 05:05 Labs: Laboratory Results - last 24 hr 04/14/21 06:45: Crossmatch See Detail 04/17/21 00:30: Hgb 8.4 L, Hct 26.4 L 04/17/21 05:05: WBC 8.6, RBC 3.00 L, Hgb 9.1 L, Hct 27.8 L, MCV 92.7, MCH 30.3, MCHC 32.7, RDW Std Deviation 48.1 H, RDW Coeff of Jordin 14.3, Plt Count 244, MPV 8.5, Immature Gran % (Auto) 0.200, Neut % (Auto) 57.6, Lymph % (Auto) 23.5, [place] % (Auto) 10.0, Eos % (Auto) 8.1 H, Baso % (Auto) 0.6, Absolute Neuts (auto) 4.9, Absolute Lymphs (auto) 2.02, Nucleated RBC % 0 04/17/21 05:05: Sodium 137, Potassium 3.2 L, Chloride 103, Carbon Dioxide 30.0, Anion Gap 4 L, BUN 5 L, Creatinine 0.30 L, Estim Creat Clear Calc 46.43, Est GFR (MDRD) Af Amer 284, Est GFR (MDRD) Non-Af 235, BUN/Creatinine Ratio 16.8, Glucose 125 H, Calcium 7.5 L, Total Bilirubin 0.50, AST 13 L, ALT 13, Alkaline Phosphatase 59, Total Protein 4.9 L, Albumin 2.0 L, Globulin 2.9, Albumin/Globulin Ratio 0.7 L Physical Exam Narrative Physical exam: General: Alert, Oriented x3, Cooperative, appears more comfortable HEENT: Atraumatic Oral: Moist Mucosa Neck: Supple Lungs: Clear to auscultation Cardiovascular: HS I+II, regular, no murmurs Abdomen: Bowel Sounds Present, Soft, Non Tender Extremities: No edema Assessment & Plan Assessment/Plan (1) Hematemesis: QUALIFIERS: Nausea presence: with nausea Qualified Code(s): K92.0 - Hematemesis (2) Abdominal pain: QUALIFIERS: Abdominal location: generalized Qualified Code(s): R10.84 - Generalized abdominal pain (3) Acute GI bleeding: (4) Intractable nausea and vomiting: (5) Acquired gastric outlet stenosis: PLAN: 1. Acute GI bleed secondary to erosive esophagitis/solitary rectal ulcer Status post EGD on 04/14/21 and colonoscopy 04/17/21 Continue on po PPI drip 2. Acute blood loss anemia, unclear of exact etiology for sudden drop in hemoglobin Patient was admitted with hemoglobin of 11, drop hemoglobin to 7.6 Status post 1 unit packed RBC. Hemoglobin today is 9.1. GI following 3. Relative hypotension status post fluid boluses, blood pressures are better Will continue to monitor 4. Hypokalemia/hypomagnesemia, replaced, recheck in a.m. 5. Acute intractable nausea and vomiting, appears improved Gastric emptying study was negative 6. Hyponatremia, resolved 7. Rest of her chronic medical conditions including seizure disorder, hyperlipidemia, tardive dyskinesia/COPD/hypothyroidism/CHUY Patient's home medications reviewed Charges/Coding Visit Charges Inpatient E&M: 78554 Subs Hosp L2
--- NOTE | 2021-04-17 15:17 | NURSING ---
Read and reviewed and SN documentation. Reviewed plan of care with SN.
[2021-04-17] MEDS: Polyethylene Glycol 3350 17 GM PACKET PO (15:43)
[2021-04-17] MEDS: Senna/Docusate Sodium 1 Tablet 2 TABLET PO ×2 (15:48→20:30)
[2021-04-17] MEDS: Docusate Sodium 100 MG Capsule PO (15:48)
[2021-04-17] MEDS: BRIMONIDINE 0.2% 5ML BOTTLE 1 DRP EACH EYE (20:30)
[2021-04-17] MEDS: Pramipexole Di-HCl 1 MG Tablet PO (20:30)
[2021-04-17] MEDS: Mirabegron 25 MG TAB.ER.24H PO (20:31)
[2021-04-17] MEDS: OXcarbazepine 600 MG Tablet PO (20:31)
[2021-04-17] MEDS: Atorvastatin Calcium 40 MG Tablet PO (20:32)
[2021-04-17] MEDS: Psyllium 1 PACKET PO (20:32)
[2021-04-17] MEDS: Mirtazapine 15 MG Tablet 7.5 MG PO (20:32)
[2021-04-17] MEDS: Benztropine 2 MG Tablet PO (20:33)
[2021-04-17] MEDS: Calcium (Elemental) 500 MG Tablet PO (20:33)
[2021-04-17] MEDS: Fluticasone/Salmeterol 232-14 Inhaler 1 PUFF INHALATION (20:34)
[2021-04-17] MEDS: Pantoprazole Sodium 40 MG Tablet PO (20:43)
[2021-04-17] MEDS: Phenobarbital 32.4 MG Tablet PO (22:27)
[2021-04-17] MEDS: Methadone 10 MG Tablet PO (22:27)
[2021-04-17] MEDS: Temazepam 15 MG Capsule 30 MG PO (22:36)
[2021-04-17] MEDS: Hydrocortisone 100 MG/60 ML ENEMA RC (22:36)
[2021-04-18 03:02] VITALS: PULSE 75
[2021-04-18 04:30] VITALS: BP 122/55; PULSE 78; RESP 16; TEMP 35.9; O2SAT 98
[2021-04-18] MEDS: Metoclopramide 10 MG/2 ML Vial 5 MG IV (05:34)
[2021-04-18] MEDS: 0.9% Saline Lock 10 ML Syringe IV (05:34)
[2021-04-18] MEDS: Levothyroxine 25 MCG TABLET PO (05:35)
[2021-04-18] MEDS: Psyllium 1 PACKET PO (05:35)
[2021-04-18] MEDS: Midodrine HCl 5 MG Tablet 10 MG PO (05:35)
[2021-04-18] MEDS: Methadone 10 MG Tablet PO (05:38)
[2021-04-18 06:52] VITALS: PULSE 59
[2021-04-18 06:59] VITALS: PULSE 56; RESP 16; O2SAT 98
[2021-04-18] MEDS: Ipratropium/Albuterol Sulfate 3 ML AMPUL.NEB INHALATION (06:59)
[2021-04-18 07:04] LABS: Absolute Lymphocyte Count 1.23 X10^3/uL (0.83-4.51); Basophil# 0.01 X10^3/uL; Basophil% 0.1 % (0-1); Eosinophil# 0.11 X10^3/uL; Eosinophils% 1.6 % (0-5); Hematocrit 32.7 % (37-47); Hemoglobin 10.2 g/dL (12.0-15.0); Lymphocyte # 1.23 X10^3/ul (0.83-4.51); Lymphocyte % 17.9 % (19-41); Mean Corp Hgb Conc 31.2 g/dL (32-36); Mean Corpuscular Hgb 29.5 pg (27.0-32.0); Mean Corpuscular Volume 94.5 fL (81-99); Mean Platelet Vol. 9.4 fl (6.2-12.0); Monocyte# 0.49 X10^3/uL; Monocyte% 7.1 % (0-10); NRBC Flagged by Analyzer 0 % (0-5); Neutrophil % 72.9 % (47-70); Platelet Count 304 K/mm3 (150-450); RBC Distribution Width CV 14.4 % (11.6-14.6); RBC Distribution Width SD 49.1 fl (35.1-43.9); Red Blood Count 3.46 M/mm3 (4.2-5.4); White Blood Count 6.9 K/mm3 (4.4-11.0)
[2021-04-18 07:34] LABS: ALB/GLOB Ratio 0.6 RATIO (0.9-2.4); AST(SGOT) 11 U/L (15-37); Alanine Aminotransfer ALT/SGPT 12 U/L (13-56); Albumin, Serum 2.2 g/dL (3.2-5.0); Alkaline Phosphatase 70 U/L (45-117); Anion Gap 6 (5-15); BUN 2 mg/dL (7-18); BUN/Creat Ratio 5.3 RATIO (10-20); Calcium,Total 8.5 mg/dL (8.5-10.1); Chloride 100 mmol/L (98-107); Creatinine, Serum 0.38 mg/dL (0.55-1.02); EST Glomerular Filtration Rate 179 mL/min (>60); Est Glom Filt Rate - Afr Amer 217 mL/min (>60); Estimated Creatinine Clearance 46.43 ml/min; Globulin 3.4 g/dL (2.2-4.2); Glucose 181 mg/dL (74-106); Potassium 4.2 mmol/L (3.5-5.1); Protein, Total 5.6 g/dL (6.4-8.2); Sodium Level 137 mmol/L (136-145)
[2021-04-18 08:59] VITALS: BP 133/82; PULSE 90; RESP 15; TEMP 37; O2SAT 95
[2021-04-18] MEDS: Fluticasone/Salmeterol 232-14 Inhaler 1 PUFF INHALATION (09:06)
[2021-04-18] MEDS: Umeclidinium Bromide Inhaler 1 PUFF INHALATION (09:06)
[2021-04-18] MEDS: Pantoprazole Sodium 40 MG Tablet PO (09:07)
[2021-04-18] MEDS: BRIMONIDINE 0.2% 5ML BOTTLE 1 DRP EACH EYE (09:07)
[2021-04-18] MEDS: Polyethylene Glycol 3350 17 GM PACKET PO (09:07)
[2021-04-18] MEDS: Senna/Docusate Sodium 1 Tablet 2 TABLET PO (09:08)
[2021-04-18] MEDS: Calcium (Elemental) 500 MG Tablet PO (09:08)
[2021-04-18] MEDS: Mirabegron 25 MG TAB.ER.24H PO (09:09)
[2021-04-18] MEDS: OXcarbazepine 600 MG Tablet PO (09:09)
[2021-04-18] MEDS: Ferrous Sulfate 325 MG Tablet PO (09:10)
[2021-04-18] MEDS: DULoxetine Hcl 20 MG Capsule PO (09:10)
[2021-04-18] MEDS: Benztropine 2 MG Tablet PO (09:11)
[2021-04-18] MEDS: Hydrocortisone 100 MG/60 ML ENEMA RC (09:14)
--- NOTE | 2021-04-18 09:25 | PCM.TXEXTCAR ---
Diet 04/18/21 09:25 Diet: Regular - General Is pt able to select menu?: Yes Diet Comments: advance as tolerated Routine Orders/Code Status O2 Liters per Minute: 2 O2 Frequency: Continuous Keep PO Greater than or Equal to (%): 94 Routine Lab Work: CBC (within 3 days) and BMP (within 3 days) Therapies Weight Bearing: Weight bearing as tolerated Physical Therapy: Eval and Treat Occupational Therapy: Eval and Treat Problem/Diagnosis (1) Hematemesis: Status: Acute (2) Abdominal pain: Status: Acute (3) Acute GI bleeding: Status: Resolved (4) Intractable nausea and vomiting: Status: Resolved Allergies/Procedures Done in Hospital Allergies codeine Allergy (Mild, Verified 04/07/21 09:33) HIVES corn Allergy (Verified 04/14/21 11:10) Hives Penicillins Allergy (Verified 04/07/21 09:33) Anaphylaxis Procedures: Colonoscopy (04/17/21) and EGD (04/14/21) Type of Care/Length of Stay Estimated LOS: Convalescent Care Less Than 30 days Type of Care Needed: Skilled Rehab Potential: Good Prognosis: Good Additional Orders/Day of Discharge Day of Discharge: 04/18/21 Dietary and Speech Recommendations Dietitian Recommendations/Changes: advance diet as tolerated to transitional; recommend ensure w/ medpass when PO diet resumed. If unable to tolerate PO diet, may need to consider nutrition support- consult RDN for further recommendations as indicated. Discharge Plan Admission Admit Date/Time: 04/14/21 10:05 Primary Reason for Your Visit: Hematemesis Attending Provider: Julia Noonan Primary Care Provider: Saulo Pagan Instructions Patient Instructions: Esophagitis, ED Vomiting and Diarrhea ... Discharge Orders/Prescriptions Prescriptions: New hydrocortisone 100 mg/60 mL Enema 100 mg [place] BID 21 Days Qty: 0 RF: 0 ipratropium-albuterol 0.5 mg-3 mg(2.5 mg base)/3 mL Solution For Nebulization 3 ml inhalation Q4HWA.RT Qty: 0 RF: 0 hydrocortisone 2.5 % Cream 1 applic topical DAILY PRN (Reason: hemorrhoids) Qty: 0 RF: 0 Incruse Ellipta 62.5 mcg/actuation Blister With Device 1 puff inhalation DAILY Qty: 0 RF: 0 calcium polycarbophil [Fiber (calcium polycarbophil)] 625 mg Tablet 1,250 mg PO BID Qty: 60 RF: 0 Continued Myrbetriq 25 mg tablet extended release 24 hr 25 mg PO BID RF: 0 sennosides-docusate sodium [Senexon-S] 8.6-50 mg tablet 2 tab PO BID RF: 0 calcium carbonate [Oyster Shell Calcium] 500 mg calcium (1,250 mg) tablet 500 mg PO BID RF: 0 fluticasone furoate-vilanterol 100-25 mcg/dose blister with device 2 puff INHALATION DAILY RF: 0 oxcarbazepine 600 mg tablet 600 mg PO BID Qty: 60 RF: 3 phenobarbital 32.4 mg tablet 32.4 mg PO BID Qty: 60 RF: 3 duloxetine 20 MG capsule,delayed release(DR/EC) 20 mg PO DAILY RF: 0 mirtazapine 7.5 mg tablet 7.5 mg PO QHS RF: 0 ropinirole 2 MG tablet 2 mg PO QHS RF: 0 multivitamin Tablet 1 tab PO 1200 RF: 0 cholecalciferol (vitamin D3) 1,250 mcg (50,000 unit) capsule 1,250 mcg PO WE RF: 0 methadone 10 mg tablet 10 mg PO TID 5 Days Qty: 15 RF: 0 ondansetron 4 mg Tablet,Disintegrating 4 mg PO Q6H PRN (Reason: Nausea) RF: 0 nitroglycerin 0.4 mg Tablet, Sublingual 0.4 mg sublingual Q5M PRN (Reason: CHEST PAIN) Qty: 30 RF: 0 Metamucil Fiber Singles 3.4 gram Powder In Packet 1 packet PO TID Qty: 0 RF: 0 temazepam 30 mg Capsule 30 mg PO QHS PRN (Reason: Sleep) Qty: 0 RF: 0 midodrine 10 mg tablet 10 mg PO TID Qty: 90 RF: 0 levothyroxine 25 mcg Tablet 25 mcg PO DAILY RF: 0 brimonidine 0.2 % Drops 1 drp EACH EYE BID RF: 0 atorvastatin 40 mg tablet 40 mg PO QHS RF: 0 polyethylene glycol 3350 17 gram powder in packet 17 g PO DAILY RF: 0 ferrous sulfate [FeroSul] 325 mg (65 mg iron) tablet 325 mg PO QODAY RF: 0 benztropine 2 mg tablet 2 mg PO BID RF: 0 pantoprazole 40 mg tablet,delayed release (DR/EC) 40 mg PO BID Qty: 60 RF: 1 Changed potassium chloride 20 MEQ tablet 20 meq PO DAILY Qty: 0 RF: 0 Discontinued nicotine 21 mg/24 hr patch 24 hour 1 patch TOPICAL DAILY Qty: 30 RF: 0 aspirin 81 mg Tablet,Chewable 81 mg PO DAILY@1200 RF: 0 docusate sodium [Colace] 100 mg capsule 100 mg PO DAILY RF: 0 Referrals / Follow Up: Saulo Pagan MD [Primary Care Provider] - Jesus Lobato DO [STAFF PHYSICIAN] - Keep Niurka appointment Disposition Disposition (needs filled in before D/C Order can be placed): Senior Living Facility
[2021-04-18] MEDS: Phenobarbital 32.4 MG Tablet PO (09:33)
[2021-04-18] MEDS: Furosemide 20 MG/2 ML VIAL IV (09:43)
--- NOTE | 2021-04-18 09:52 | DS.PCM_ITS ---
Providers Date of Admission: 04/14/21 Date of Discharge: 04/18/21 Primary Care Physician: Dr. Saulo Pgaan MD Reason For Visit: GI BLEED, ABDOMINAL PAIN Diagnosis Discharge Diagnosis (1) Hematemesis: Status: Acute Code(s): K92.0 - Hematemesis Qualifiers: Nausea presence: with nausea Qualified Code(s): K92.0 - Hematemesis (2) Abdominal pain: Status: Acute Code(s): R10.9 - Unspecified abdominal pain Qualifiers: Abdominal location: generalized Qualified Code(s): R10.84 - Generalized abdominal pain (3) Acute GI bleeding: Status: Resolved Code(s): K92.2 - Gastrointestinal hemorrhage, unspecified (4) Intractable nausea and vomiting: Status: Resolved Code(s): R11.2 - Nausea with vomiting, unspecified Medications at Discharge Home Medications duloxetine 20 mg PO DAILY 01/07/19 mirtazapine 7.5 mg tablet 7.5 mg PO QHS tablet 02/21/19 ropinirole 2 mg PO QHS 08/08/19 calcium carbonate 500 mg calcium (1,250 mg) tablet 500 mg PO BID 05/13/20 fluticasone furoate 100 mcg-vilanterol 25 mcg/dose inhalation powder 2 puff INHALATION DAILY 05/13/20 mirabegron 25 mg tablet,extended release 24 hr 25 mg PO BID tab 05/13/20 sennosides 8.6 mg-docusate sodium 50 mg tablet 2 tab PO BID 05/13/20 oxcarbazepine 600 mg tablet 600 mg PO BID #60 tab 10/13/20 phenobarbital 32.4 mg tablet 32.4 mg PO BID #60 tab 10/13/20 cholecalciferol (vitamin D3) 1,250 mcg PO WE 10/20/20 multivitamin 1 tab PO 1200 10/20/20 methadone 10 mg PO TID 5 Days #15 tab 10/25/20 ondansetron 4 mg PO Q6H PRN 01/10/21 Metamucil Fiber Singles 1 packet PO TID #0 ea 01/21/21 midodrine 10 mg PO TID #90 tab 01/21/21 nitroglycerin 0.4 mg SUBLINGUAL Q5M PRN #30 tab 01/21/21 temazepam 30 mg PO QHS PRN #0 cap 01/21/21 atorvastatin 40 mg PO QHS 04/07/21 benztropine 2 mg PO BID 04/07/21 brimonidine 1 drp EACH EYE BID 04/07/21 ferrous sulfate [FeroSul] 325 mg PO QODAY 04/07/21 levothyroxine 25 mcg PO DAILY 04/07/21 polyethylene glycol 3350 17 g PO DAILY 04/07/21 pantoprazole 40 mg PO BID #60 tab 04/10/21 calcium polycarbophil [Fiber (calcium polycarbophil)] 1,250 mg PO BID #60 tab 04/18/21 hydrocortisone 1 applic TOPICAL DAILY PRN #0 g 04/18/21 hydrocortisone 100 mg [place] BID 21 Days #0 ml 04/18/21 ipratropium-albuterol 3 ml INHALATION Q4HWA.RT #0 ml 04/18/21 potassium chloride 20 meq PO DAILY #0 tab 04/18/21 umeclidinium [Incruse Ellipta] 1 puff INHALATION DAILY #0 ea 04/18/21 Hospital Course Operations None Procedures None Summary of Care Provided Minutes Spent on Discharge: 45 Hospital Course: 70-year-old female with multiple comorbidities, resident in a skilled nursing, who comes in with coffee-ground emesis. Patient was seen and discharged a week prior EGD that time showed esophagitis. She had presented similarly. She was admitted to the progressive care unit. Patient's admitting hemoglobin was 11. Her vitals and H&H were trended. Patient's hemoglobin dropped to 7.6. Patient got transfused 2 units of packed RBC. Gastroenterology was consulted. Repeat EGD showed severe esophagitis. Patient continued to be hypotensive relatively anemic. She underwent colonoscopy which showed a solitary rectal ulcer. Patient was discharged with hydrocortisone antiemetics, PPI and stool softeners. She will follow-up with GI for follow-up and MRI of the pelvis. Physical Exam Narrative Physical exam: General: Alert, Oriented x3, Cooperative, appears more comfortable HEENT: Atraumatic Oral: Moist Mucosa Neck: Supple Lungs: Clear to auscultation Cardiovascular: HS I+II, regular, no murmurs Abdomen: Bowel Sounds Present, Soft, Non Tender Extremities: No edema Weight / BMI Weight Weight: 76.5 kg Body Mass Index (BMI) 27.7 ABG / Lab / Microbiology Data Result Diagrams: 04/18/21 06:25 04/18/21 06:25 Laboratory: Laboratory Results - last 24 hr 04/18/21 06:25: WBC 6.9, RBC 3.46 L, Hgb 10.2 L, Hct 32.7 L, MCV 94.5, MCH 29.5, MCHC 31.2 L, RDW Std Deviation 49.1 H, RDW Coeff of Jordin 14.4, Plt Count 304, MPV 9.4, Immature Gran % (Auto) 0.400, Neut % (Auto) 72.9 H, Lymph % (Auto) 17.9 L, [place] % (Auto) 7.1, Eos % (Auto) 1.6, Baso % (Auto) 0.1, Absolute Neuts (auto) 5.0, Absolute Lymphs (auto) 1.23, Nucleated RBC % 0 04/18/21 06:25: Sodium 137, Potassium 4.2, Chloride 100, Carbon Dioxide 31.0, Anion Gap 6, BUN 2 L, Creatinine 0.38 L, Estim Creat Clear Calc 46.43, Est GFR (MDRD) Af Amer 217, Est GFR (MDRD) Non-Af 179, BUN/Creatinine Ratio 5.3 L, Glucose 181 H, Calcium 8.5, Total Bilirubin 0.40, AST 11 L, ALT 12 L, Alkaline Phosphatase 70, Total Protein 5.6 L, Albumin 2.2 L, Globulin 3.4, A lbumin/Globulin Ratio 0.6 L Meaningful Use Info Meaningful Use Diagnoses (Choose all that apply): None applicable Discharge Plan Admission Admit Date/Time: 04/14/21 10:05 Primary Reason for Your Visit: Hematemesis Attending Provider: Julia Noonan Primary Care Provider: Saulo Pagan Instructions Patient Instructions: Esophagitis, ED Vomiting and Diarrhea ... Additional Instructions / Restrictions: Patient Problems: Altered Health Status related to Hospitalization Patient Goals: *Optimal Level of Health *Keep Appointments *Medication Compliance *Remain Safe Discharge Orders/Prescriptions Prescriptions: New hydrocortisone 100 mg/60 mL Enema 100 mg [place] BID 21 Days Qty: 0 RF: 0 ipratropium-albuterol 0.5 mg-3 mg(2.5 mg base)/3 mL Solution For Nebulization 3 ml inhalation Q4HWA.RT Qty: 0 RF: 0 hydrocortisone 2.5 % Cream 1 applic topical DAILY PRN (Reason: hemorrhoids) Qty: 0 RF: 0 Incruse Ellipta 62.5 mcg/actuation Blister With Device 1 puff inhalation DAILY Qty: 0 RF: 0 calcium polycarbophil [Fiber (calcium polycarbophil)] 625 mg Tablet 1,250 mg PO BID Qty: 60 RF: 0 Continued Myrbetriq 25 mg tablet extended release 24 hr 25 mg PO BID RF: 0 sennosides-docusate sodium [Senexon-S] 8.6-50 mg tablet 2 tab PO BID RF: 0 calcium carbonate [Oyster Shell Calcium] 500 mg calcium (1,250 mg) tablet 500 mg PO BID RF: 0 fluticasone furoate-vilanterol 100-25 mcg/dose blister with device 2 puff INHALATION DAILY RF: 0 oxcarbazepine 600 mg tablet 600 mg PO BID Qty: 60 RF: 3 phenobarbital 32.4 mg tablet 32.4 mg PO BID Qty: 60 RF: 3 duloxetine 20 MG capsule,delayed release(DR/EC) 20 mg PO DAILY RF: 0 mirtazapine 7.5 mg tablet 7.5 mg PO QHS RF: 0 ropinirole 2 MG tablet 2 mg PO QHS RF: 0 multivitamin Tablet 1 tab PO 1200 RF: 0 cholecalciferol (vitamin D3) 1,250 mcg (50,000 unit) capsule 1,250 mcg PO WE RF: 0 methadone 10 mg tablet 10 mg PO TID 5 Days Qty: 15 RF: 0 ondansetron 4 mg Tablet,Disintegrating 4 mg PO Q6H PRN (Reason: Nausea) RF: 0 nitroglycerin 0.4 mg Tablet, Sublingual 0.4 mg sublingual Q5M PRN (Reason: CHEST PAIN) Qty: 30 RF: 0 Metamucil Fiber Singles 3.4 gram Powder In Packet 1 packet PO TID Qty: 0 RF: 0 temazepam 30 mg Capsule 30 mg PO QHS PRN (Reason: Sleep) Qty: 0 RF: 0 midodrine 10 mg tablet 10 mg PO TID Qty: 90 RF: 0 levothyroxine 25 mcg Tablet 25 mcg PO DAILY RF: 0 brimonidine 0.2 % Drops 1 drp EACH EYE BID RF: 0 atorvastatin 40 mg tablet 40 mg PO QHS RF: 0 polyethylene glycol 3350 17 gram powder in packet 17 g PO DAILY RF: 0 ferrous sulfate [FeroSul] 325 mg (65 mg iron) tablet 325 mg PO QODAY RF: 0 benztropine 2 mg tablet 2 mg PO BID RF: 0 pantoprazole 40 mg tablet,delayed release (DR/EC) 40 mg PO BID Qty: 60 RF: 1 Changed potassium chloride 20 MEQ tablet 20 meq PO DAILY Qty: 0 RF: 0 Discontinued nicotine 21 mg/24 hr patch 24 hour 1 patch TOPICAL DAILY Qty: 30 RF: 0 aspirin 81 mg Tablet,Chewable 81 mg PO DAILY@1200 RF: 0 docusate sodium [Colace] 100 mg capsule 100 mg PO DAILY RF: 0 Referrals / Follow Up: Saulo Pagan MD [Primary Care Provider] - FriendJesus DO [STAFF PHYSICIAN] - Keep Niurka appointment Disposition Disposition (needs filled in before D/C Order can be placed): [facility] Charges/Coding Visit Charges Inpatient E&M: 61878 Disch Hosp
--- NOTE | 2021-04-18 11:15 | NURSING ---
report given to cayden martin rn at [facility]
== END 2021-04-18 11:09 | disposition skilled nursing facility (03) | DRG 381 ==
LOC: ED 09:52 → PCU 10:46
PROVIDERS: Anesthesiology; Internal Medicine Gastroenterology; Nurse Practitioner Family; Admitting Provider Internal Medicine; Emergency Provider Emergency Medicine; PCP Family Medicine; Visit Provider Internal Medicine
PROC: 0DJ08ZZ Inspection of Upper Intestinal Tract, Via Natural or Artificial Opening Endoscopic (ICD-10-PCS; CPT 43235; principal; 2021-04-14 14:55)
PROC: 0DJD8ZZ Inspection of Lower Intestinal Tract, Via Natural or Artificial Opening Endoscopic (ICD-10-PCS; CPT 45378; principal; 2021-04-17 11:55)
DX: K22.11 Ulcer of esophagus with bleeding (principal); K51.90 Ulcerative colitis, unspecified, without complications; D62 Acute posthemorrhagic anemia; K31.1 Adult hypertrophic pyloric stenosis; E87.1 Hypo-osmolality and hyponatremia; J96.11 Chronic respiratory failure with hypoxia; K21.01 Gastro-esophageal reflux disease with esophagitis, with bleeding; K57.31 Diverticulosis of large intestine without perforation or abscess with bleeding; K44.9 Diaphragmatic hernia without obstruction or gangrene; K59.09 Other constipation; K64.9 Unspecified hemorrhoids; E83.42 Hypomagnesemia; E87.6 Hypokalemia; I95.89 Other hypotension; E03.9 Hypothyroidism, unspecified; G40.909 Epilepsy, unspecified, not intractable, without status epilepticus; G47.33 Obstructive sleep apnea (adult) (pediatric); J44.9 Chronic obstructive pulmonary disease, unspecified; I25.2 Old myocardial infarction; G25.81 Restless legs syndrome; F32.A Depression, unspecified; F41.9 Anxiety disorder, unspecified; I11.9 Hypertensive heart disease without heart failure; Z90.89 Acquired absence of other organs; Z90.49 Acquired absence of other specified parts of digestive tract; Z79.890 Hormone replacement therapy; Z99.81 Dependence on supplemental oxygen; Z79.899 Other long term (current) drug therapy; Z87.891 Personal history of nicotine dependence
CPT/HCPCS: 36415; 74176; 78264; 80048; 80053; 83605; 83690; 83735; 84443; 85014; 85018; 85025; 85027; 85610; 85730; 86850; 86900; 86901; 86920; 86922; 87426; 88305; 93005; 94640; 97162; 97165; 97802; 97803; 99285; 99406; A9541; J7030; J7040; J7120; P9016; A4216; J1940; J2405; J3490

== ENCOUNTER 2021-09-02 06:55 | Emergency (ER) | payer MEDICARE, MEDICAID, SELFPAY ==
[2021-09-02 06:57] VITALS: BP 168/107; PULSE 100; RESP 20; TEMP 36.4; O2SAT 99; BMI 22.8
--- NOTE | 2021-09-02 07:15 | EKG12_ITS ---
Test Reason : Blood Pressure : / mmHG Vent. Rate : 094 BPM Atrial Rate : 094 BPM P-R Int : 188 ms QRS Dur : 098 ms QT Int : 384 ms P-R-T Axes : 064 -33 044 degrees QTc Int : 480 ms Normal sinus rhythm Left axis deviation Septal infarct , age undetermined Abnormal ECG Confirmed by ROLAN LEACH, LEONELA ([id number]), clinical editor WESLY CASTAÑEDA ([id number]) on 09/03/2021 9:12:33 AM Referred By: Confirmed By:LEONELA GONGORA MD
--- NOTE | 2021-09-02 07:16 | CT_ITS ---
STUDY: CT ABDOMEN AND PELVIS WITH CONTRAST REASON FOR EXAM: Female, 71 years old. Epigastric Pain RADIATION DOSAGE (If Supplied By Facility): CTDIvol = ( 13.48 ) mGy, DLP = ( 1066.06 ) mGycm TECHNIQUE: Transaxial images were obtained from the dome of the diaphragm to the symphysis pubis without oral contrast. IV 100mL Isovue-300 was administered. Sagittal and coronal images were reconstructed. Individualized dose optimization techniques were used for this CT. COMPARISON: 04/14/2021 FINDINGS: There are chronic interstitial fibrotic changes of the lung bases. The visualized portions of the heart are within normal limits. Normal liver. There are surgical clips in the gallbladder fossa consistent with a prior cholecystectomy. Expected biliary prominence, unchanged. Normal spleen. Normal pancreas. Normal bilateral adrenal glands. Normal right kidney. Normal left kidney. There is a small hiatal hernia. Normal small intestine. No colon wall thickening. There is non-visualization of the appendix. There is diffuse atherosclerotic calcification of the abdominal aorta, without a demonstrated aneurysm. Normal inferior vena cava. Normal retroperitoneum. Normal urinary bladder. Multiple injection granulomata the bilateral gluteal subcutaneous fat. Inferior positioning of the pelvic floor with caudal migration of the rectum and pelvic floor contents (particularly rectum) suggesting pelvic floor instability, not substantially changed. Right hip replacement causes moderate spray artifact. Degenerative changes of the lumbar spine with severe acquired canal stenosis at L4-L5, stable. CT/Abdomen/Pelvis W IV Cont ONLY IMPRESSION: 1. No acute inflammatory process or bowel obstruction. 2. Pelvic floor instability with rectocele. 3. Additional stable chronic changes, as above. Electronically Signed: Fabricio Garsia MD ([place]) at 8:34 EDT ,
--- NOTE | 2021-09-02 07:17 | EDS_ITS ---
HPI HPI - GI History of Present Illness Chief Complaint: Nausea/Vomiting/Diarrhea Narrative Narrative: Patient presents with the [place] with epigastric pain that she has had since last evening. She states that she has chronic pain and saw her pain management doctor yesterday. After she got back to the facility, she had epigastric pain, nausea, vomiting, and perhaps some diarrhea. She has thrown up too many times to count. She denies any blood in her emesis. She relates history of a hiatal hernia which has caused her pain in the past. She states it feels like there is someone twisting a fist into her epigastrium. She denies any fevers or chills. No exacerbating or alleviating factors. She presents because of the nausea, vomiting, and the epigastric pain. 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 Chronic constipation Chronic hypoxemic respiratory failure COPD (chronic obstructive pulmonary disease) Debility Degenerative disc disease, lumbar Depression Diverticulosis DVT (deep venous thrombosis) Dyspnea Epilepsy Essential tremor Extrapyramidal disorder Fall Gastritis Grade III hemorrhoids Hemorrhoids Hypertension Hypotension Hypothyroidism Insomnia Left arm weakness Lower GI bleeding Obstructive sleep apnea On home oxygen therapy Pain, chronic Paresthesias Physical debility Polyneuropathy Rectal prolapse Restless leg syndrome Seizure disorder Sleep apnea Smoker Spinal stenosis Spinal stenosis of lumbar region Stercoral ulcer of rectum Stress bladder incontinence, female Suicide attempt Takotsubo cardiomyopathy Tobacco use Vitamin D deficiency Home Medications duloxetine 20 mg PO DAILY 01/07/19 [History Last Taken 04/06/21] ropinirole 2 mg PO QHS 08/08/19 [History Last Taken 04/06/21] calcium carbonate 500 mg calcium (1,250 mg) tablet 500 mg PO BID 05/13/20 [History Last Taken 04/06/21] fluticasone furoate 100 mcg-vilanterol 25 mcg/dose inhalation powder 2 puff INHALATION DAILY 05/13/20 [History Last Taken 04/06/21] mirabegron 25 mg tablet,extended release 24 hr 25 mg PO BID tab 05/13/20 [History Last Taken 04/06/21] sennosides 8.6 mg-docusate sodium 50 mg tablet 2 tab PO BID 05/13/20 [History Last Taken 04/06/21] oxcarbazepine 600 mg tablet 600 mg PO BID #60 tab 10/13/20 [Rx Last Taken 04/06/21] phenobarbital 32.4 mg tablet 32.4 mg PO BID #60 tab 10/13/20 [Rx Last Taken 04/06/21] cholecalciferol (vitamin D3) 1,250 mcg PO WE 10/20/20 [History Last Taken 04/01/21] multivitamin 1 tab PO 1200 10/20/20 [History Last Taken 04/06/21] methadone 10 mg PO TID 5 Days #15 tab 10/25/20 [Rx Last Taken 04/07/21 06:00] ondansetron 4 mg PO Q6H PRN 01/10/21 [History Last Taken 04/07/21] Metamucil Fiber Singles 1 packet PO TID #0 ea 01/21/21 [Rx Last Taken 04/07/21 06:00] midodrine 10 mg PO TID #90 tab 01/21/21 [Rx Last Taken 04/06/21] nitroglycerin 0.4 mg SUBLINGUAL Q5M PRN #30 tab 01/21/21 [Rx Last Taken Unknown] temazepam 30 mg PO QHS PRN #0 cap 01/21/21 [Rx Last Taken 04/05/21] atorvastatin 40 mg PO QHS 04/07/21 [History Last Taken 04/06/21] brimonidine 1 drp EACH EYE BID 04/07/21 [History Last Taken 04/06/21] ferrous sulfate [FeroSul] 325 mg PO QODAY 04/07/21 [History Last Taken 04/01/21] levothyroxine 25 mcg PO DAILY 04/07/21 [History Last Taken 04/06/21] polyethylene glycol 3350 17 g PO DAILY 04/07/21 [History Last Taken 04/06/21] pantoprazole 40 mg PO BID #60 tab 04/10/21 [Rx Last Taken Unknown] potassium chloride 20 meq PO DAILY #0 tab 04/18/21 [Rx Last Taken 04/06/21] umeclidinium [Incruse Ellipta] 1 puff INHALATION DAILY #0 ea 04/18/21 [Rx Last Taken Unknown] hydrocortisone 2.5 % topical cream 1 applic TOPICAL TID #30 g 04/21/21 [Rx Last Taken Unknown] lactulose 20 gram/30 mL oral solution 20 g PO BID #1200 ml 04/21/21 [Rx Last Taken Unknown] benztropine 1 mg tablet 1 mg PO QNOON #30 tab 08/06/21 [Rx Last Taken Unknown] benztropine 2 mg tablet 2 mg PO QAM AND QHS tab 08/06/21 [History Last Taken Unknown] bisacodyl 10 mg rectal suppository 10 mg UT DAILY PRN 08/06/21 [History Last Taken Unknown] calcium polycarbophil 625 mg tablet 1,250 mg PO BID 08/06/21 [History Last Taken Unknown] latanoprost 0.005 % eye drops 1 drp OPHTHALMIC (EYE) QPM ml 08/06/21 [History Last Taken Unknown] magnesium hydroxide 400 mg/5 mL oral suspension 30 ml PO DAILY PRN ml 08/06/21 [History Last Taken Unknown] mineral oil 118 ml [place] DAILY PRN 08/06/21 [History Last Taken Unknown] Allergy/AdvReac Type Severity Reaction Status Date / Time codeine Allergy Mild HIVES Verified 08/27/21 15:09 corn Allergy Hives Verified 08/27/21 15:09 Penicillins Allergy Anaphylaxis Verified 08/27/21 15:09 Family History Mother Diabetes Heart disease Hypertension CAD (coronary artery disease) CVA (cerebral vascular accident) Thyroid disorder Father Colon cancer Surgical History History of bilateral carpal tunnel release History of bilateral cataract extraction History of blepharoplasty History of cystoscopy History of esophagogastroduodenoscopy (EGD) (~03/07/19) History of left heart catheterization (01/16/21) History of right hip replacement History of right salpingo-oophorectomy S/P appendectomy S/P laparoscopic cholecystectomy Status post ORIF of fracture of ankle Social History household members: none housing: apartment pets and animals: Yes (cat) pets and animals: cat(s) Smoking Status: Former smoker Tobacco: How many years used: 50 alcohol intake: never substance use type: does not use well-balanced diet: rarely or never do you feel safe at home: Yes ROS ROS ED ROS Narrative Constitutional: No fever, no chills. HEENT: No sore throat. No neck pain. No loss of vision. No rhinorrhea. Cardiovascular: No chest pain. No palpitations. No pedal edema. Respiratory: No cough, no shortness of breath. Abdominal: Epigastric abdominal pain. Positive nausea. Multiple episodes of nonbloody vomiting. Questionable diarrhea with history of chronic diarrhea. Genitourinary: No dysuria. No hematuria. Musculoskeletal: No myalgias. No arthralgias. Neurologic: No headaches. No dizziness. No lightheadedness. Skin: No rash. No change in color. Psychiatric: No depression. No anxiety. EXAM Physical Exam Narrative Exam Narrative: Afebrile. Vital signs noted. HEENT: Normocephalic. Atraumatic. PERRL, EOMI. Neck soft and supple. No point tenderness or step off. Cardiovascular: Regular rate and rhythm. No murmurs, rubs, or gallops appreciated. Respiratory: No tachypnea. Lungs clear to auscultation bilaterally. Gastrointestinal: Abdomen soft, mild tenderness in epigastrium, with normoactive bowel sounds. No rebound or guarding. Neurological: Awake. Alert. Nonfocal, nonlateralizing. Skin: No rash. Normal color. No pallor. Musculoskeletal: No pedal edema. Full range of motion extremities. Const Vital Signs: 09/02/21 06:57 Temperature 97.5 F L Temperature Source Temporal Pulse Rate 100 Respiratory Rate 20 H Blood Pressure 168/107 H Blood Pressure Mean 127 Pulse Ox 99 Oxygen Delivery Method Room Air MDM MDM MDM Narrative Medical decision making narrative: Patient is a DNR [facility] arrest. Comprehensive work-up was pursued. Given her epigastric pain and history of hiatal hernia she will be given a GI cocktail along with ondansetron. She was bolused normal saline 1 L intravenously. Patient has normal white count 9.2, hemoglobin normal at 14.0. While she has a low sodium of 129, this is a chronic hyponatremia. Chloride is also low at 94. She was bolused normal saline intravenously. She has a creatinine slightly low at 0.48. Glucose appropriately elevated at 202 with a normal anion gap of 11. Lipase is normal at 43. Urinalysis shows no evidence of infection. Her CT of the abdomen pelvis shows no acute process, she has a stable rectocele and she is not complaining of any pain from her reported pelvic floor instability. At this point in time, she states that she vomited back up with a GI cocktail. She will be given an intramuscular shot of Bentyl. I discussed the patient with Dr. Saulo Pagan who agrees with [facility]. She is in stable condition. Lab Data Attestation: I reviewed the patient's lab results. Labs: Laboratory Results - last 24 hr 09/02/21 09/02/21 09/02/21 07:04 07:04 08:40 WBC 9.2 RBC 4.70 Hgb 14.0 Hct 42.1 MCV 89.6 MCH 29.8 MCHC 33.3 RDW Std Deviation 47.4 H RDW Coeff of Jordin 14.3 Plt Count 229 MPV 9.7 Immature Gran % (Auto) 0.300 Neut % (Auto) 81.4 H Lymph % (Auto) 11.9 L [place] % (Auto) 5.8 Eos % (Auto) 0.3 Baso % (Auto) 0.3 Absolute Neuts (auto) 7.5 Absolute Lymphs (auto) 1.09 Nucleated RBC % 0 Sodium 129 L Potassium 3.5 Chloride 94 L Carbon Dioxide 24.0 Anion Gap 11 BUN 10 Creatinine 0.48 L Estim Creat Clear Calc 45.76 Est GFR (MDRD) Af Amer 162 Est GFR (MDRD) Non-Af 134 BUN/Creatinine Ratio 20.7 H Glucose 202 H Calcium 9.3 Total Bilirubin 0.30 AST 18 ALT 21 Alkaline Phosphatase 108 Total Protein 8.4 H Albumin 4.2 Globulin 4.2 Albumin/Globulin Ratio 1.0 Lipase 43 L Urine Color Straw Urine Clarity Clear Urine pH 8.0 Ur Specific Carmen 1.010 Urine Protein 30 H Urine Glucose (UA) 100 H Urine Ketones 50 H Urine Occult Blood Negative Urine Nitrite Negative Urine Bilirubin Negative Urine Urobilinogen Normal Ur Leukocyte Esterase Negative Urine RBC 0 SEEN Urine WBC 0 SEEN Ur Squamous Epith Cells 0 SEEN Urine Bacteria 0 SEEN Urine Mucus 0 SEEN Radiography Diagnostic Testing: Clinical Impression(s) from Imaging Studies Abdomen/Pelvis CT 09/02/21 07:16 IMPRESSION: 1. No acute inflammatory process or bowel obstruction. 2. Pelvic floor instability with rectocele. 3. Additional stable chronic changes, as above. Electronically Signed: Fabricio Garsia MD ([place]) at 8:34 EDT Reading Location ID and State: [address] [place] [address] , Service support , Discharge Plan Triage Chief Complaint: Nausea/Vomiting/Diarrhea ED Provider: Dexter Ybarra Dx/Rx/DC Orders Clinical Impression: Epigastric pain, Nausea & vomiting Instructions: Nausea Vomit Control, ED Epigastric Pain Uncertain Cause Prescriptions: No Action Myrbetriq 25 mg tablet extended release 24 hr 25 mg PO BID RF: 0 sennosides-docusate sodium [Senexon-S] 8.6-50 mg tablet 2 tab PO BID RF: 0 calcium carbonate [Oyster Shell Calcium] 500 mg calcium (1,250 mg) tablet 500 mg PO BID RF: 0 fluticasone furoate-vilanterol 100-25 mcg/dose blister with device 2 puff INHALATION DAILY RF: 0 oxcarbazepine 600 mg tablet 600 mg PO BID Qty: 60 RF: 3 phenobarbital 32.4 mg tablet 32.4 mg PO BID Qty: 60 RF: 3 hydrocortisone 2.5 % cream 1 applic topical TID Qty: 30 RF: 0 lactulose 20 gram/30 mL solution 20 g PO BID Qty: 1200 RF: 0 bisacodyl 10 mg suppository 10 mg UT DAILY PRN (Reason: Constipation) RF: 0 mineral oil [Fleet Mineral Oil] Enema 118 ml UT DAILY PRN (Reason: CONSTIATION) RF: 0 calcium polycarbophil [Fiber Laxative (ca polycarbo)] 625 mg tablet 1,250 mg PO BID RF: 0 latanoprost 0.005 % drops 1 drp ophthalmic (eye) QPM RF: 0 magnesium hydroxide [Milk of Magnesia] 400 mg/5 mL suspension 30 ml PO DAILY PRN (Reason: GI UPSET) RF: 0 benztropine 1 mg tablet 1 mg PO QNOON Qty: 30 RF: 0 benztropine 2 mg tablet 2 mg PO QAM AND QHS RF: 0 duloxetine 20 MG capsule,delayed release(DR/EC) 20 mg PO DAILY RF: 0 ropinirole 2 MG tablet 2 mg PO QHS RF: 0 multivitamin Tablet 1 tab PO 1200 RF: 0 cholecalciferol (vitamin D3) 1,250 mcg (50,000 unit) capsule 1,250 mcg PO WE RF: 0 methadone 10 mg tablet 10 mg PO TID 5 Days Qty: 15 RF: 0 ondansetron 4 mg Tablet,Disintegrating 4 mg PO Q6H PRN (Reason: Nausea) RF: 0 nitroglycerin 0.4 mg Tablet, Sublingual 0.4 mg sublingual Q5M PRN (Reason: CHEST PAIN) Qty: 30 RF: 0 Metamucil Fiber Singles 3.4 gram Powder In Packet 1 packet PO TID Qty: 0 RF: 0 temazepam 30 mg Capsule 30 mg PO QHS PRN (Reason: Sleep) Qty: 0 RF: 0 midodrine 10 mg tablet 10 mg PO TID Qty: 90 RF: 0 levothyroxine 25 mcg Tablet 25 mcg PO DAILY RF: 0 brimonidine 0.2 % Drops 1 drp EACH EYE BID RF: 0 atorvastatin 40 mg tablet 40 mg PO QHS RF: 0 polyethylene glycol 3350 17 gram powder in packet 17 g PO DAILY RF: 0 ferrous sulfate [FeroSul] 325 mg (65 mg iron) tablet 325 mg PO QODAY RF: 0 pantoprazole 40 mg tablet,delayed release (DR/EC) 40 mg PO BID Qty: 60 RF: 1 potassium chloride 20 MEQ tablet 20 meq PO DAILY Qty: 0 RF: 0 Incruse Ellipta 62.5 mcg/actuation Blister With Device 1 puff inhalation DAILY Qty: 0 RF: 0 Primary Care Provider: Saulo Pagan Referrals: Saulo Pagan MD [Primary Care Provider] - As soon as possible Disposition Disposition: Senior Living Facility Discharge Location: [facility]
[2021-09-02] MEDS: Mag Hydrox/Al Hydrox/Simeth 30 ML UDC PO (07:28)
[2021-09-02] MEDS: Ondansetron 4 MG/2 ML Vial IV (07:28)
[2021-09-02] MEDS: 0.9% Normal Saline 1,000 ML 1000 ML IV (07:28)
[2021-09-02 07:29] LABS: Absolute Lymphocyte Count 1.09 X10^3/uL (0.83-4.51); Absolute Neutrophil Count 7.5 X10^3/uL (2.0-7.7); Basophil# 0.03 X10^3/uL; Basophil% 0.3 % (0-1); Eosinophil# 0.03 X10^3/uL; Eosinophils% 0.3 % (0-5); Hematocrit 42.1 % (37-47); Lymphocyte # 1.09 X10^3/ul (0.83-4.51); Lymphocyte % 11.9 % (19-41); Mean Corp Hgb Conc 33.3 g/dL (32-36); Mean Corpuscular Hgb 29.8 pg (27.0-32.0); Mean Corpuscular Volume 89.6 fL (81-99); Mean Platelet Vol. 9.7 fl (6.2-12.0); Monocyte# 0.53 X10^3/uL; Monocyte% 5.8 % (0-10); NRBC Flagged by Analyzer 0 % (0-5); Neutrophil # 7.47 X10^3/uL (2.7-7.7); Neutrophil % 81.4 % (47-70); Platelet Count 229 K/mm3 (150-450); RBC Distribution Width CV 14.3 % (11.6-14.6); RBC Distribution Width SD 47.4 fl (35.1-43.9); White Blood Count 9.2 K/mm3 (4.4-11.0)
[2021-09-02 07:40] LABS: AST(SGOT) 18 U/L (15-37); Alanine Aminotransfer ALT/SGPT 21 U/L (13-56); Albumin, Serum 4.2 g/dL (3.2-5.0); Alkaline Phosphatase 108 U/L (45-117); Anion Gap 11 (5-15); BUN 10 mg/dL (7-18); BUN/Creat Ratio 20.7 RATIO (10-20); Calcium,Total 9.3 mg/dL (8.5-10.1); Chloride 94 mmol/L (98-107); Creatinine, Serum 0.48 mg/dL (0.55-1.02); EST Glomerular Filtration Rate 134 mL/min (>60); Est Glom Filt Rate - Afr Amer 162 mL/min (>60); Estimated Creatinine Clearance 45.76 ml/min; Globulin 4.2 g/dL (2.2-4.2); Glucose 202 mg/dL (74-106); Lipase 43 U/L (73-393); Potassium 3.5 mmol/L (3.5-5.1); Protein, Total 8.4 g/dL (6.4-8.2); Sodium Level 129 mmol/L (136-145)
[2021-09-02 08:50] LABS: Bacteria 0 SEEN /hpf (None Seen); Mucous, Urine 0 SEEN /hpf (<or=2+); Red Blood Cells-Urine 0 SEEN /hpf (0-5); Squamous Epithelial Cells - UA 0 SEEN /hpf (5-10); White Blood Cells 0 SEEN /hpf (0-5)
[2021-09-02 08:51] LABS: Color, Urine Straw (Yellow); Glucose, Dipstick 100 mg/dl (Normal); Ketone-Dipstick 50 mg/dl (Negative); Leukocyte Esterase-Dipstick Negative /ul (Negative); Nitrite-Dipstick Negative (Negative); Occult Blood-Urine Negative /ul (Negative); Protein-Dipstick 30 mg/dl (Negative); Urine Bilirubin Dipstick Negative (Negative); Urine Clarity Clear (Clear); Urine Urobilinogen Normal (Normal)
[2021-09-02] MEDS: Dicyclomine 20 MG/2 ML Vial IM (08:51)
[2021-09-02 09:53] VITALS: RESP 18; O2SAT 95
== END 2021-09-02 09:54 | disposition skilled nursing facility (03) ==
PROVIDERS: Emergency Provider Emergency Medicine; PCP Family Medicine; Visit Provider Emergency Medicine
DX: R11.2 Nausea with vomiting, unspecified (principal); J44.9 Chronic obstructive pulmonary disease, unspecified; G40.909 Epilepsy, unspecified, not intractable, without status epilepticus; R10.13 Epigastric pain; I11.9 Hypertensive heart disease without heart failure; I25.2 Old myocardial infarction; E03.9 Hypothyroidism, unspecified; E55.9 Vitamin D deficiency, unspecified; G25.81 Restless legs syndrome; G47.00 Insomnia, unspecified; K59.09 Other constipation; F32.A Depression, unspecified; F41.9 Anxiety disorder, unspecified; Z66 Do not resuscitate; Z99.81 Dependence on supplemental oxygen; Z79.899 Other long term (current) drug therapy; Z87.891 Personal history of nicotine dependence
CPT/HCPCS: 74177; 80053; 81001; 83690; 85025; 93005; J7030; Q9967; A4216; J2405

== ENCOUNTER 2021-09-02 18:26 | Observation (INO) | payer MEDICARE, MEDICAID, SELFPAY ==
[2021-09-02 18:27] VITALS: BP 164/111; PULSE 110; RESP 18; TEMP 36.8; O2SAT 94; BMI 25.7
--- NOTE | 2021-09-02 19:18 | EDS_ITS ---
HPI HPI - GI History of Present Illness Chief Complaint: Nausea/Vomiting Informant: patient Abdominal Pain/Flank Pain Onset: Today Timing: Continuous Quality: Dull Location: Epigastric Current Severity: Moderate Maximum Severity: Moderate Worsened by: - (Vomiting) Relieved by: Nothing Nausea/Vomiting/Emesis GI Symptom: Positive for Nausea and Vomiting Onset: Today Quality: Positive for Nonbilious; Negative for Blood streaks Severity: Severe Diarrhea/Melena/Hematochezia GI Symptom: Positive for Hematochezia (Small amounts occasionally with loose diarrhea); Negative for Melena Onset: Weeks (1) Stool Quality: Positive for Loose Severity: Mild Narrative Narrative: Patient was here this morning with the same symptoms, vomiting uncontrollably, discomfort in her epigastrium that she states feels related to her chronic hiatal hernia, she states she has some discomfort in her rectum but not pain, associated with rectocele versus rectal prolapse. She states it has occasionally used a small amount of blood but nothing major. She had a large work-up this morning including a CT showing no evidence of anything acute in her abdomen/pelvis, she went back to long-term and apparently started vomiting again and has been unable to stop and feels poorly. 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 Chronic constipation Chronic hypoxemic respiratory failure COPD (chronic obstructive pulmonary disease) Debility Degenerative disc disease, lumbar Depression Diverticulosis DVT (deep venous thrombosis) Dyspnea Epilepsy Essential tremor Extrapyramidal disorder Fall Gastritis Grade III hemorrhoids Hemorrhoids Hypertension Hypotension Hypothyroidism Insomnia Left arm weakness Lower GI bleeding Obstructive sleep apnea On home oxygen therapy Pain, chronic Paresthesias Physical debility Polyneuropathy Rectal prolapse Restless leg syndrome Seizure disorder Sleep apnea Smoker Spinal stenosis Spinal stenosis of lumbar region Stercoral ulcer of rectum Stress bladder incontinence, female Suicide attempt Takotsubo cardiomyopathy Tobacco use Vitamin D deficiency Home Medications duloxetine 20 mg PO DAILY 01/07/19 [History Last Taken 04/06/21] ropinirole 2 mg PO QHS 08/08/19 [History Last Taken 04/06/21] calcium carbonate 500 mg calcium (1,250 mg) tablet 500 mg PO BID 05/13/20 [History Last Taken 04/06/21] fluticasone furoate 100 mcg-vilanterol 25 mcg/dose inhalation powder 2 puff INHALATION DAILY 05/13/20 [History Last Taken 04/06/21] mirabegron 25 mg tablet,extended release 24 hr 25 mg PO BID tab 05/13/20 [History Last Taken 04/06/21] sennosides 8.6 mg-docusate sodium 50 mg tablet 2 tab PO BID 05/13/20 [History Last Taken 04/06/21] oxcarbazepine 600 mg tablet 600 mg PO BID #60 tab 10/13/20 [Rx Last Taken 04/06/21] phenobarbital 32.4 mg tablet 32.4 mg PO BID #60 tab 10/13/20 [Rx Last Taken 04/06/21] cholecalciferol (vitamin D3) 1,250 mcg PO WE 10/20/20 [History Last Taken 04/01/21] multivitamin 1 tab PO 1200 10/20/20 [History Last Taken 04/06/21] methadone 10 mg PO TID 5 Days #15 tab 10/25/20 [Rx Last Taken 04/07/21 06:00] ondansetron 4 mg PO Q6H PRN 01/10/21 [History Last Taken 04/07/21] Metamucil Fiber Singles 1 packet PO TID #0 ea 01/21/21 [Rx Last Taken 04/07/21 06:00] midodrine 10 mg PO TID #90 tab 01/21/21 [Rx Last Taken 04/06/21] nitroglycerin 0.4 mg SUBLINGUAL Q5M PRN #30 tab 01/21/21 [Rx Last Taken Unknown] temazepam 30 mg PO QHS PRN #0 cap 01/21/21 [Rx Last Taken 04/05/21] atorvastatin 40 mg PO QHS 04/07/21 [History Last Taken 04/06/21] brimonidine 1 drp EACH EYE BID 04/07/21 [History Last Taken 04/06/21] ferrous sulfate [FeroSul] 325 mg PO QODAY 04/07/21 [History Last Taken 04/01/21] levothyroxine 25 mcg PO DAILY 04/07/21 [History Last Taken 04/06/21] polyethylene glycol 3350 17 g PO DAILY 04/07/21 [History Last Taken 04/06/21] pantoprazole 40 mg PO BID #60 tab 04/10/21 [Rx Last Taken Unknown] potassium chloride 20 meq PO DAILY #0 tab 04/18/21 [Rx Last Taken 04/06/21] umeclidinium [Incruse Ellipta] 1 puff INHALATION DAILY #0 ea 04/18/21 [Rx Last Taken Unknown] hydrocortisone 2.5 % topical cream 1 applic TOPICAL TID #30 g 04/21/21 [Rx Last Taken Unknown] lactulose 20 gram/30 mL oral solution 20 g PO BID #1200 ml 04/21/21 [Rx Last Taken Unknown] benztropine 1 mg tablet 1 mg PO QNOON #30 tab 08/06/21 [Rx Last Taken Unknown] benztropine 2 mg tablet 2 mg PO QAM AND QHS tab 08/06/21 [History Last Taken Unknown] bisacodyl 10 mg rectal suppository 10 mg [place] DAILY PRN 08/06/21 [History Last Taken Unknown] calcium polycarbophil 625 mg tablet 1,250 mg PO BID 08/06/21 [History Last Taken Unknown] latanoprost 0.005 % eye drops 1 drp OPHTHALMIC (EYE) QPM ml 08/06/21 [History Last Taken Unknown] magnesium hydroxide 400 mg/5 mL oral suspension 30 ml PO DAILY PRN ml 08/06/21 [History Last Taken Unknown] mineral oil 118 ml [place] DAILY PRN 08/06/21 [History Last Taken Unknown] Allergy/AdvReac Type Severity Reaction Status Date / Time codeine Allergy Mild HIVES Verified 08/27/21 15:09 corn Allergy Hives Verified 08/27/21 15:09 Penicillins Allergy Anaphylaxis Verified 08/27/21 15:09 Family History Mother Diabetes Heart disease Hypertension CAD (coronary artery disease) CVA (cerebral vascular accident) Thyroid disorder Father Colon cancer Surgical History History of bilateral carpal tunnel release History of bilateral cataract extraction History of blepharoplasty History of cystoscopy History of esophagogastroduodenoscopy (EGD) (~03/07/19) History of left heart catheterization (01/16/21) History of right hip replacement History of right salpingo-oophorectomy S/P appendectomy S/P laparoscopic cholecystectomy Status post ORIF of fracture of ankle Social History household members: none housing: apartment pets and animals: Yes (cat) pets and animals: cat(s) Smoking Status: Former smoker Tobacco: How many years used: 50 alcohol intake: never substance use type: does not use well-balanced diet: rarely or never do you feel safe at home: Yes ROS ROS ED Constitutional Constitutional ED: Denies chills or fever(s) Eyes Eyes: Denies change in vision or diplopia ENT ENT ED: Denies rhinorrhea or sore throat Cardiovascular Cardiovascular: Denies chest pain or palpitations Respiratory/Chest Respiratory/Chest: Denies cough or dyspnea Gastrointestinal Gastrointestinal: Reports as per HPI, abdominal pain, diarrhea, nausea and vomiting Genitourinary Genitourinary ED: Denies dysuria or hematuria Musculoskeletal Musculoskeletal: Denies back pain or neck pain Integumentary Denies abscess or rash Neurologic Neurologic: Denies headache(s), paresthesias or weakness Psychiatric Psychiatric: Denies anxiety or suicidal thoughts EXAM Physical Exam Const Vital Signs: 09/02/21 18:27 09/02/21 22:25 Temperature 98.3 F Temperature Source Temporal Pulse Rate 110 H 94 Respiratory Rate 18 16 Blood Pressure 164/111 H Blood Pressure Mean 128 Pulse Ox 94 99 Oxygen Delivery Method Room Air Room Air Positive well nourished and well developed General Appearance ED: well developed and NAD HEENT Reports moist mucous membranes normocephalic and atraumatic Eyes PERRL and EOMs intact bilaterally Neck full ROM and supple Resp normal respiratory effort and clear to auscultation bilaterally Cardio regular rate, regular rhythm and no murmurs Rate: tachycardic GI non-distended GI Narrative: Tender across upper abdomen, no guarding or rebound tenderness. No other areas of tenderness. Auscultation: normoactive bowel sounds Palpation: soft; Negative for pulsatile mass Rectal Exam: other Other Details: Rectocele versus mild rectal prolapse, no significant tenderness, no active bleeding. Back/Spine no CVA tenderness General Back: other FROM Extremity normal to inspection General Extremety ED: Negative for edema, pulses abnormal or tenderness General Extremity: Negative for edema or pulses abnormal Neuro oriented x3, CN's II-XII intact bilaterally and no sensory deficits noted Sensorium / Orientation: awake and alert Motor Exam: strength 5/5 throughout Psych denies suicidal ideation Mood & Affect: anxious Skin no rashes or lesions noted and no wounds MDM MDM MDM Narrative Medical decision making narrative: Patient was treated with IV fluids and Reglan, she continues to vomit and have discomfort, gave her IV potassium for her low level of 3.0 and Zofran. After waiting for dietary to get us some sugar, I went back to treat her rectal prolapse, which she states has been an issue for 2 years off-and-on but she rarely has issues with it not going back in, unlike today, and when I went to coat it with sugar, it had already self- reduced. Now she just has multiple nonthrombosed nonbleeding external hemorrhoids. Will admit for symptoms and low potassium. Lab Data Attestation: I reviewed the patient's lab results. Labs: Laboratory Results - last 24 hr 09/02/21 20:03 Sodium 132 L Potassium 3.0 L Chloride 93 L Carbon Dioxide 32.0 Anion Gap 7 BUN 11 Creatinine 0.59 Estim Creat Clear Calc 45.76 Est GFR (MDRD) Af Amer 128 Est GFR (MDRD) Non-Af 106 BUN/Creatinine Ratio 18.5 Glucose 177 H Calcium 10.2 H Discharge Plan Dx/Rx/DC Orders Clinical Impression: Intractable vomiting with nausea, Hypokalemia due to excessive gastrointestinal loss of potassium, Partial rectal prolapse Disposition Disposition: [facility]
[2021-09-02] MEDS: Metoclopramide 10 MG/2 ML Vial 5 MG IV (20:30)
[2021-09-02 21:14] LABS: Anion Gap 7 (5-15); BUN 11 mg/dL (7-18); BUN/Creat Ratio 18.5 RATIO (10-20); Calcium,Total 10.2 mg/dL (8.5-10.1); Chloride 93 mmol/L (98-107); Creatinine, Serum 0.59 mg/dL (0.55-1.02); EST Glomerular Filtration Rate 106 mL/min (>60); Est Glom Filt Rate - Afr Amer 128 mL/min (>60); Estimated Creatinine Clearance 45.76 ml/min; Glucose 177 mg/dL (74-106); Sodium Level 132 mmol/L (136-145)
[2021-09-02] MEDS: Potassium Chloride 10mEq/100mL 10 MEQ/100 ML IV.SOLN. 100 MEQ IV BOLUS (21:53)
[2021-09-02 22:25] VITALS: PULSE 94; RESP 16; O2SAT 99
[2021-09-02] MEDS: Ondansetron 4 MG/2 ML Vial IV (22:33)
--- NOTE | 2021-09-02 22:48 | HP.PCM.HOS_ITS ---
[facility] - General General Date of Admission: 09/02/21 HPI Narrative XANDER RAMIREZ, is a 71 F with a significant history of Fitzgerald's esophagitis; hiatal hernia; restless legs syndrome ; chronic pain secondary to spinal stenosis and on chronic steroid shots in her back who presents to emergency department with 3-day history of persistent nausea and vomiting. She attributes her symptoms to possibly some peas and rice that she ate. Associated with her symptoms is epigastric pain that she attributes to her hiatal hernia. She denies diarrhea. She reported last time her bowels moved was 3 to 4 days. She reports that her typical bowel movement is once a day. She was at the emergency department 2 times on the same day of presentation; both was for nausea and vomiting. At the ED she was found to her rectal prolapse which self reduced while at the ED. She came from a Group Home. [facility] Medical History Abdominal pain Acute gastritis Acute non-ST elevation myocardial infarction (NSTEMI) Anxiety Fitzgerald's esophagus determined by biopsy Chronic constipation Chronic hypoxemic respiratory failure COPD (chronic obstructive pulmonary disease) Debility Degenerative disc disease, lumbar Depression Diverticulosis DVT (deep venous thrombosis) Dyspnea Epilepsy Essential tremor Extrapyramidal disorder Fall Gastritis Grade III hemorrhoids Hemorrhoids Hypertension Hypotension Hypothyroidism Insomnia Left arm weakness Lower GI bleeding Obstructive sleep apnea On home oxygen therapy Pain, chronic Paresthesias Physical debility Polyneuropathy Rectal prolapse Restless leg syndrome Seizure disorder Sleep apnea Smoker Spinal stenosis Spinal stenosis of lumbar region Stercoral ulcer of rectum Stress bladder incontinence, female Suicide attempt Takotsubo cardiomyopathy Tobacco use Vitamin D deficiency Home Medications duloxetine 20 mg PO DAILY 01/07/19 [History Last Taken 04/06/21] ropinirole 2 mg PO QHS 08/08/19 [History Last Taken 04/06/21] calcium carbonate 500 mg calcium (1,250 mg) tablet 500 mg PO BID 05/13/20 [History Last Taken 04/06/21] fluticasone furoate 100 mcg-vilanterol 25 mcg/dose inhalation powder 2 puff INHA LATION DAILY 05/13/20 [History Last Taken 04/06/21] mirabegron 25 mg tablet,extended release 24 hr 25 mg PO BID tab 05/13/20 [History Last Taken 04/06/21] sennosides 8.6 mg-docusate sodium 50 mg tablet 2 tab PO BID 05/13/20 [History Last Taken 04/06/21] oxcarbazepine 600 mg tablet 600 mg PO BID #60 tab 10/13/20 [Rx Last Taken 04/06/21] phenobarbital 32.4 mg tablet 32.4 mg PO BID #60 tab 10/13/20 [Rx Last Taken 04/06/21] cholecalciferol (vitamin D3) 1,250 mcg PO WE 10/20/20 [History Last Taken 1 ] multivitamin 1 tab PO 1200 10/20/20 [History Last Taken 04/06/21] methadone 10 mg PO TID 5 Days #15 tab 10/25/20 [Rx Last Taken 04/07/21 06:00] ondansetron 4 mg PO Q6H PRN 01/10/21 [History Last Taken 04/07/21] Metamucil Fiber Singles 1 packet PO TID #0 ea 01/21/21 [Rx Last Taken 04/07/21 0 6:00] midodrine 10 mg PO TID #90 tab 01/21/21 [Rx Last Taken 04/06/21] nitroglycerin 0.4 mg SUBLINGUAL Q5M PRN #30 tab 01/21/21 [Rx Last Taken Unknown] temazepam 30 mg PO QHS PRN #0 cap 01/21/21 [Rx Last Taken 04/05/21] atorvastatin 40 mg PO QHS 04/07/21 [History Last Taken 04/06/21] brimonidine 1 drp EACH EYE BID 04/07/21 [History Last Taken 04/06/21] ferrous sulfate [FeroSul] 325 mg PO QODAY 04/07/21 [History Last Taken 04/01/21] levothyroxine 25 mcg PO DAILY 04/07/21 [History Last Taken 04/06/21] polyethylene glycol 3350 17 g PO DAILY 04/07/21 [History Last Taken 04/06/21] pantoprazole 40 mg PO BID #60 tab 04/10/21 [Rx Last Taken Unknown] potassium chloride 20 meq PO DAILY #0 tab 04/18/21 [Rx Last Taken 04/06/21] umeclidinium [Incruse Ellipta] 1 puff INHALATION DAILY #0 ea 04/18/21 [Rx Last Taken Unknown] hydrocortisone 2.5 % topical cream 1 applic TOPICAL TID #30 g 04/21/21 [Rx Last Taken Unknown] lactulose 20 gram/30 mL oral solution 20 g PO BID #1200 ml 04/21/21 [Rx Last Taken Unknown] benztropine 1 mg tablet 1 mg PO QNOON #30 tab 08/06/21 [Rx Last Taken Unknown] benztropine 2 mg tablet 2 mg PO QAM AND QHS tab 08/06/21 [History Last Taken Unknown] bisacodyl 10 mg rectal suppository [address] DAILY PRN 08/06/21 [History Last Taken Unknown] calcium polycarbophil 625 mg tablet 1,250 mg PO BID 08/06/21 [History Last Taken Unknown] latanoprost 0.005 % eye drops 1 drp OPHTHALMIC (EYE) QPM ml 08/06/21 [History Last Taken Unknown] magnesium hydroxide 400 mg/5 mL oral suspension 30 ml PO DAILY PRN ml 08/06/21 [History Last Taken Unknown] mineral oil [address] DAILY PRN 08/06/21 [History Last Taken Unknown] Allergy/AdvReac Type Severity Reaction Status Date / Time codeine Allergy Mild HIVES Verified 08/27/21 15:09 corn Allergy Hives Verified 08/27/21 15:09 Penicillins Allergy Anaphylaxis Verified 08/27/21 15:09 Family History Mother Diabetes Heart disease Hypertension CAD (coronary artery disease) CVA (cerebral vascular accident) Thyroid disorder Father Colon cancer Surgical History History of bilateral carpal tunnel release History of bilateral cataract extraction History of blepharoplasty History of cystoscopy History of esophagogastroduodenoscopy (EGD) (~03/07/19) History of left heart catheterization (01/16/21) History of right hip replacement History of right salpingo-oophorectomy S/P appendectomy S/P laparoscopic cholecystectomy Status post ORIF of fracture of ankle Social History household members: none housing: apartment pets and animals: Yes (cat) pets and animals: cat(s) Smoking Status: Former smoker Tobacco: How many years used: 50 alcohol intake: never substance use type: does not use well-balanced diet: rarely or never do you feel safe at home: Yes ROS ROS Narrative Constitutional: Denies fever, chills, fatigue, anorexia and change in weight Eyes: Denies blurry vision, change in eye color, change in vision, discharge from eye(s), double vision, erythema, eye pain, loss of vision or other HEENT: Denies abnormal hearing, dysphagia, ear pain, epistaxis, headache(s), hearing loss, nasal congestion, nasal discharge, post nasal drip, sinus pressure, sore throat or other Cardiovascular: Denies chest pain or palpitations. Denies dyspnea on exertion, orthopnea and paroxysmal nocturnal dyspnea Respiratory/Chest: Denies cough, excessive phlegm production, shortness of breath with exertion and wheezing Gastrointestinal: Reports epigastric pain, nausea, vomiting and constipation. Denies coffee ground emesis, diarrhea, hematemesis, loose stools, melena, nausea, vomiting or other Genitourinary: Denies burning urination, difficulty urinating, dysuria, hematuria, nocturia, urinary frequency, urinary hesitancy, urinary incontinence, urinary urgency or other Musculoskeletal: Denies arthralgias, back pain, joint pain, joint stiffness, joint swelling, myalgias, neck pain or other Neurologic: Denies abnormal gait, abnormal speech, confusion, disequilibrium, dizziness, focal weakness, headache(s), numbness, paresthesias, seizure-like act ivity, seizures, syncope, tingling, tremor(s) or other Psychiatric: Denies anxiety, depression, homicidal ideation, suicidal ideation or other Endocrinology: Denies change in body appearance, cold intolerance, excessive sweating, heat intolerance, polydipsia, polyuria or other Hematologic/Lymphatic: Denies anemia, easy bleeding, easy bruising, lymphadenopathy or other Integumentary: Denies rashes Allergic/Immunologic: Denies rhinitis, hives, eczema, asthma or other Vital Signs Vital Signs Vital Signs: 09/02/21 18:27 09/02/21 22:25 Temperature 98.3 F Temperature Source Temporal Pulse Rate 110 H 94 Respiratory Rate 18 16 Blood Pressure 164/111 H Blood Pressure Mean 128 Pulse Ox 94 99 Oxygen Delivery Method Room Air Room Air Weight Weight: 70.3 kg Body Mass Index (BMI) 25.7 Physical Exam Narrative Physical exam: General: Well-nourished, well-developed. Head: Normocephalic, atraumatic, no tenderness Eyes: PERRLA, EOMI ENT, no trauma, moist mucous membranes, no rhinorrhea Neck: Nontender, full range of motion, no spinal tenderness, deformities, step- off CVS: Regular rate and rhythm. S1-S2 present. No murmur, gallop or rub. Respiratory : clear to auscultation bilaterally, chest wall nontender, no wheezing Abdomen: Soft, nontender, nondistended, normal bowel sounds, no masses : Prolapsed rectum Back: Nontender, no CVA tenderness, no midline spinal tenderness, deformities, step-offs Extremities: Nontender full range of motion, no trauma Skin: Normal color, no trauma, abrasions Neuro: Alert, oriented, cranial nerves II through XII grossly intact. Psychiatry: Normal mood. Normal affect. Not depressed. Not anxious. Results Lab / Micro Data Result Diagrams: 09/02/21 20:03 09/02/21 20:03 Labs: Laboratory Results - last 24 hr 09/02/21 20:03: Sodium 132 L, Potassium 3.0 L, Chloride 93 L, Carbon Dioxide 32.0, Anion Gap 7, BUN 11, Creatinine 0.59, Estim Creat Clear Calc 45.76, Est GFR (MDRD) Af Amer 128, Est GFR (MDRD) Non-Af 106, BUN/Creatinine Ratio 18.5, Glucose 177 H, Calcium 10.2 H Assessment & Plan Assessment/Plan (1) Intractable vomiting with nausea: (2) Epigastric pain: PLAN: Intractable vomiting with nausea/epigastric pain Abdomen/Pelvis CT was obtained on patient's past ED visits. The abdomen and pelvis CT was visualized and independently interpreted agree with radiologist interpretation no acute inflammatory process or bowel obstruction seen. Rectocele/rectal prolapse noticed on CT. Review of labs showed potassium of 3.0. Sodium level of 132 on presentation. Potassium chloride IV ordered emergency department. Will order additional 30 mEq of potassium IV. Also normal saline with potassium supplementation ordered. Trend BMP. Antiemetics with as needed Zofran. Observe the progressive care unit because of hypokalemia. N.p.o. except meds with sips. Change po protonix to IV Chronic constipation Continue home regimen. Hold off regimen that will require extra po water. DVT prophylaxis: SCD ordered Charges/Coding Visit Charges OBSV E&M: 96921 Initial observation care L2
[2021-09-02 23:39] LABS: Magnesium 2.1 mg/dL (1.6-2.6)
[2021-09-03] VITALS (13 sets, daily range): BP systolic 114–180; BP diastolic 60–79; PULSE 76–92; RESP 16–20; TEMP 36.6–37; O2SAT 95–100; BMI 24.1
[2021-09-03] MEDS: 0.9% Saline Lock 10 ML Syringe IV ×2 (01:19→02:14)
[2021-09-03] MEDS: Benztropine 2 MG Tablet PO ×2 (01:21→10:56)
[2021-09-03] MEDS: Pramipexole Di-HCl 1 MG Tablet PO (01:22)
[2021-09-03] MEDS: BRIMONIDINE 0.2% 5ML BOTTLE 1 DRP EACH EYE ×2 (01:22→10:56)
[2021-09-03] MEDS: Latanoprost 0.005% 1 Bottle 1 DRP OPHTHALMIC (01:23)
[2021-09-03] MEDS: Potassium Chloride 10mEq/100mL 10 MEQ/100 ML IV.SOLN. 100 MEQ IV BOLUS ×3 (02:13→04:40)
[2021-09-03] MEDS: Hydrocortisone 2.5% Crm 1 APPLIC TOPICAL ×2 (05:35→16:21)
[2021-09-03] MEDS: Midodrine HCl 5 MG Tablet 10 MG PO ×3 (05:37→17:08)
[2021-09-03] MEDS: Levothyroxine 25 MCG TABLET PO (05:37)
[2021-09-03] MEDS: KCL 40mEq in 0.9% NS 40 MEQ/1,000 ML IV.SOLN 100 MEQ IV (05:39)
[2021-09-03 06:52] LABS: Absolute Lymphocyte Count 1.71 X10^3/uL (0.83-4.51); Absolute Neutrophil Count 8.1 X10^3/uL (2.0-7.7); Basophil# 0.03 X10^3/uL; Basophil% 0.3 % (0-1); Hematocrit 34.9 % (37-47); Hemoglobin 11.6 g/dL (12.0-15.0); Lymphocyte # 1.71 X10^3/ul (0.83-4.51); Lymphocyte % 15.8 % (19-41); Mean Corp Hgb Conc 33.2 g/dL (32-36); Mean Corpuscular Hgb 29.9 pg (27.0-32.0); Mean Corpuscular Volume 89.9 fL (81-99); Mean Platelet Vol. 9.1 fl (6.2-12.0); Monocyte# 0.92 X10^3/uL; Monocyte% 8.5 % (0-10); NRBC Flagged by Analyzer 0 % (0-5); Neutrophil # 8.14 X10^3/uL (2.7-7.7); Neutrophil % 75.1 % (47-70); Platelet Count 281 K/mm3 (150-450); RBC Distribution Width CV 14.7 % (11.6-14.6); RBC Distribution Width SD 48.3 fl (35.1-43.9); Red Blood Count 3.88 M/mm3 (4.2-5.4); White Blood Count 10.8 K/mm3 (4.4-11.0)
[2021-09-03] MEDS: Ipratropium/Albuterol Sulfate 3 ML AMPUL.NEB INHALATION ×2 (07:06→13:01)
[2021-09-03] MEDS: Budesonide Respules 0.5 MG/2 ML AMPUL.NEB. INHALATION (07:06)
[2021-09-03 07:10] LABS: Anion Gap 4 (5-15); BUN 13 mg/dL (7-18); BUN/Creat Ratio 28.5 RATIO (10-20); Calcium,Total 8.8 mg/dL (8.5-10.1); Chloride 103 mmol/L (98-107); Creatinine, Serum 0.46 mg/dL (0.55-1.02); EST Glomerular Filtration Rate 143 mL/min (>60); Est Glom Filt Rate - Afr Amer 174 mL/min (>60); Estimated Creatinine Clearance 45.76 ml/min; Glucose 146 mg/dL (74-106); Potassium 3.9 mmol/L (3.5-5.1); Sodium Level 134 mmol/L (136-145)
--- NOTE | 2021-09-03 07:53 | PN.HOSP_ITS ---
Objective Data Objective Data Vital Signs: Vital Signs Temp Pulse Resp BP Pulse Ox 97.9 F 92 18 116/60 98 09/03/21 07:41 09/03/21 07:41 09/03/21 07:41 09/03/21 07:41 09/03/21 07:41 Oxygen Flow Rate (L/min) 2 Oxygen Delivery Method Room Air Weight: 65.9 kg Body Mass Index (BMI) 24.1 Intake & Output: Intake and Output for Last 24 Hours 09/01/21 09/02/21 09/03/21 23:59 23:59 23:59 Intake Total 500 / 500 630 / 630 Balance 500 / 500 630 / 630 Lab / Micro Data Result Diagrams: 09/03/21 06:30 09/03/21 06:30 Labs: Laboratory Results - last 24 hr 09/02/21 20:03: Sodium 132 L, Potassium 3.0 L, Chloride 93 L, Carbon Dioxide 32.0, Anion Gap 7, BUN 11, Creatinine 0.59, Estim Creat Clear Calc 45.76, Est GFR (MDRD) Af Amer 128, Est GFR (MDRD) Non-Af 106, BUN/Creatinine Ratio 18.5, Glucose 177 H, Calcium 10.2 H 09/02/21 20:03: Magnesium 2.1 09/03/21 06:30: WBC 10.8, RBC 3.88 L, Hgb 11.6 L, Hct 34.9 L, MCV 89.9, MCH 29.9, MCHC 33.2, RDW Std Deviation 48.3 H, RDW Coeff of Jordin 14.7 H, Plt Count 281, MPV 9.1, Immature Gran % (Auto) 0.300, Neut % (Auto) 75.1 H, Lymph % (Auto) 15.8 L, [place] % (Auto) 8.5, Eos % (Auto) 0.0, Baso % (Auto) 0.3, Absolute Neuts (auto) 8.1 H, Absolute Lymphs (auto) 1.71, Nucleated RBC % 0 09/03/21 06:30: Sodium 134 L, Potassium 3.9, Chloride 103, Carbon Dioxide 27.0, Anion Gap 4 L, BUN 13, Creatinine 0.46 L, Estim Creat Clear Calc 45.76, Est GFR (MDRD) Af Amer 174, Est GFR (MDRD) Non-Af 143, BUN/Creatinine Ratio 28.5 H, Glucose 146 H, Calcium 8.8
--- NOTE | 2021-09-03 08:58 | CASEMGMT ---
Discharge Test Deck Supervisor [facility] Patient does not need pre-cert when medically ready to go back. Allison Eddy Discharge Test Deck Supervisor
[2021-09-03] MEDS: Senna/Docusate Sodium 1 Tablet 2 TABLET PO (10:54)
[2021-09-03] MEDS: DULoxetine Hcl 20 MG Capsule PO (10:54)
[2021-09-03] MEDS: Benztropine Mesylate 0.5 MG TABLET 1 MG PO (10:55)
[2021-09-03] MEDS: Mirabegron 25 MG TAB.ER.24H PO (10:55)
[2021-09-03] MEDS: Lactulose 20 GM/30 ML UDC PO (10:57)
[2021-09-03] MEDS: OXcarbazepine 600 MG Tablet PO (10:58)
[2021-09-03] MEDS: Phenobarbital 32.4 MG Tablet PO (11:02)
--- NOTE | 2021-09-03 12:15 | PCM.TXEXTCAR ---
Diet 09/03/21 00:14 Diet: Nothing Per Oral Diet Comments: Except meds with sips Routine Orders/Code Status O2 Liters per Minute: 2 O2 Frequency: Continuous Keep PO Greater than or Equal to (%): 94 Routine Lab Work: CBC (within 3 days) and BMP (within 3 days) Code Status: DNRCC-A (no intubation) Problem/Diagnosis (1) Intractable vomiting with nausea: Status: Acute (2) Epigastric pain: Status: Acute Allergies/Procedures Done in Hospital Allergies codeine Allergy (Mild, Verified 08/27/21 15:09) HIVES corn Allergy (Verified 08/27/21 15:09) Hives Penicillins Allergy (Verified 08/27/21 15:09) Anaphylaxis Type of Care/Length of Stay Estimated LOS: More Than 30 Days Type of Care Needed: LTAC Rehab Potential: Good Prognosis: Good Additional Orders/Day of Discharge Day of Discharge: 09/03/21 Discharge Plan Admission Admit Date/Time: 09/02/21 22:36 Primary Reason for Your Visit: Intractable nausea and vomiting Attending Provider: Julia Noonan Primary Care Provider: Saulo Pagan Discharge Orders/Prescriptions Prescriptions: New Ensure Compact Liquid 118 ml PO TIDCM Qty: 0 RF: 0 Continued Myrbetriq 25 mg tablet extended release 24 hr 25 mg PO BID RF: 0 sennosides-docusate sodium [Senexon-S] 8.6-50 mg tablet 2 tab PO BID RF: 0 calcium carbonate [Oyster Shell Calcium] 500 mg calcium (1,250 mg) tablet 500 mg PO BID RF: 0 fluticasone furoate-vilanterol 100-25 mcg/dose blister with device 2 puff INHALATION DAILY RF: 0 oxcarbazepine 600 mg tablet 600 mg PO BID Qty: 60 RF: 3 phenobarbital 32.4 mg tablet 32.4 mg PO BID Qty: 60 RF: 3 hydrocortisone 2.5 % cream 1 applic topical TID Qty: 30 RF: 0 lactulose 20 gram/30 mL solution 20 g PO BID Qty: 1200 RF: 0 bisacodyl 10 mg suppository 10 mg KS DAILY PRN (Reason: Constipation) RF: 0 mineral oil [Fleet Mineral Oil] Enema 118 ml KS DAILY PRN (Reason: CONSTIATION) RF: 0 calcium polycarbophil [Fiber Laxative (ca polycarbo)] 625 mg tablet 1,250 mg PO BID RF: 0 latanoprost 0.005 % drops 1 drp ophthalmic (eye) QPM RF: 0 magnesium hydroxide [Milk of Magnesia] 400 mg/5 mL suspension 30 ml PO DAILY PRN (Reason: GI UPSET) RF: 0 benztropine 1 mg tablet 1 mg PO QNOON Qty: 30 RF: 0 benztropine 2 mg tablet 2 mg PO QAM AND QHS RF: 0 duloxetine 20 MG capsule,delayed release(DR/EC) 20 mg PO DAILY RF: 0 ropinirole 2 MG tablet 2 mg PO QHS RF: 0 multivitamin Tablet 1 tab PO 1200 RF: 0 cholecalciferol (vitamin D3) 1,250 mcg (50,000 unit) capsule 1,250 mcg PO WE RF: 0 methadone 10 mg tablet 10 mg PO TID 5 Days Qty: 15 RF: 0 ondansetron 4 mg Tablet,Disintegrating 4 mg PO Q6H PRN (Reason: Nausea) RF: 0 nitroglycerin 0.4 mg Tablet, Sublingual 0.4 mg sublingual Q5M PRN (Reason: CHEST PAIN) Qty: 30 RF: 0 Metamucil Fiber Singles 3.4 gram Powder In Packet 1 packet PO TID Qty: 0 RF: 0 temazepam 30 mg Capsule 30 mg PO QHS PRN (Reason: Sleep) Qty: 0 RF: 0 midodrine 10 mg tablet 10 mg PO TID Qty: 90 RF: 0 levothyroxine 25 mcg Tablet 25 mcg PO DAILY RF: 0 brimonidine 0.2 % Drops 1 drp EACH EYE BID RF: 0 atorvastatin 40 mg tablet 40 mg PO QHS RF: 0 polyethylene glycol 3350 17 gram powder in packet 17 g PO DAILY RF: 0 ferrous sulfate [FeroSul] 325 mg (65 mg iron) tablet 325 mg PO QODAY RF: 0 pantoprazole 40 mg tablet,delayed release (DR/EC) 40 mg PO BID Qty: 60 RF: 1 potassium chloride 20 MEQ tablet 20 meq PO DAILY Qty: 0 RF: 0 Incruse Ellipta 62.5 mcg/actuation Blister With Device 1 puff inhalation DAILY Qty: 0 RF: 0 Referrals / Follow Up: Saulo Pagan MD [Primary Care Provider] - Within 2 Weeks Disposition Disposition (needs filled in before D/C Order can be placed): [facility]
--- NOTE | 2021-09-03 13:15 | DS.PCM_ITS ---
Providers Date of Admission: 09/02/21 Date of Discharge: 09/03/21 Primary Care Physician: Dr. Saulo Pagan MD Reason For Visit: INTRACTABLE NAUSEA AND VOMITTING Diagnosis Discharge Diagnosis (1) Intractable vomiting with nausea: Status: Acute Code(s): R11.2 - Nausea with vomiting, unspecified (2) Epigastric pain: Status: Acute Code(s): R10.13 - Epigastric pain Medications at Discharge Home Medications duloxetine 20 mg PO DAILY 01/07/19 ropinirole 2 mg PO QHS 08/08/19 calcium carbonate 500 mg calcium (1,250 mg) tablet 500 mg PO BID 05/13/20 fluticasone furoate 100 mcg-vilanterol 25 mcg/dose inhalation powder 2 puff INHALATION DAILY 05/13/20 mirabegron 25 mg tablet,extended release 24 hr 25 mg PO BID tab 05/13/20 sennosides 8.6 mg-docusate sodium 50 mg tablet 2 tab PO BID 05/13/20 oxcarbazepine 600 mg tablet 600 mg PO BID #60 tab 10/13/20 phenobarbital 32.4 mg tablet 32.4 mg PO BID #60 tab 10/13/20 cholecalciferol (vitamin D3) 1,250 mcg PO WE 10/20/20 multivitamin 1 tab PO 1200 10/20/20 methadone 10 mg PO TID 5 Days #15 tab 10/25/20 ondansetron 4 mg PO Q6H PRN 01/10/21 Metamucil Fiber Singles 1 packet PO TID #0 ea 01/21/21 midodrine 10 mg PO TID #90 tab 01/21/21 nitroglycerin 0.4 mg SUBLINGUAL Q5M PRN #30 tab 01/21/21 temazepam 30 mg PO QHS PRN #0 cap 01/21/21 atorvastatin 40 mg PO QHS 04/07/21 brimonidine 1 drp EACH EYE BID 04/07/21 ferrous sulfate [FeroSul] 325 mg PO QODAY 04/07/21 levothyroxine 25 mcg PO DAILY 04/07/21 polyethylene glycol 3350 17 g PO DAILY 04/07/21 pantoprazole 40 mg PO BID #60 tab 04/10/21 Incruse Ellipta 1 puff INHALATION DAILY #0 ea 04/18/21 potassium chloride 20 meq PO DAILY #0 tab 04/18/21 hydrocortisone 2.5 % topical cream 1 applic TOPICAL TID #30 g 04/21/21 lactulose 20 gram/30 mL oral solution 20 g PO BID #1200 ml 04/21/21 benztropine 1 mg tablet 1 mg PO QNOON #30 tab 08/06/21 benztropine 2 mg tablet 2 mg PO QAM AND QHS tab 08/06/21 bisacodyl 10 mg rectal suppository 10 mg [place] DAILY PRN 08/06/21 calcium polycarbophil 625 mg tablet 1,250 mg PO BID 08/06/21 latanoprost 0.005 % eye drops 1 drp OPHTHALMIC (EYE) QPM ml 08/06/21 magnesium hydroxide 400 mg/5 mL oral suspension 30 ml PO DAILY PRN ml 08/06/21 mineral oil 118 ml [place] DAILY PRN 08/06/21 food supplemt, lactose-reduced [Ensure Compact] 118 ml PO TIDCM #0 ml 09/03/21 Hospital Course Operations None Procedures None Summary of Care Provided Minutes Spent on Discharge: 35 Hospital Course: 71-year-old female, resident in a skilled nursing, history of Fitzgerald's esophagitis, solitary rectal ulcer, hiatal hernia, knee/leg syndrome, chronic pain syndrome secondary to spinal stenosis who comes in with a 3-day history of persistent nausea and vomiting. Patient attributes her symptoms to some rice and peas that she ate. She had hypokalemia on admission. This was replaced. Patient was admitted to the PCU for intractable nausea and vomiting. Patient did not have any episodes of vomiting or diarrhea during this hospital stay. She remained stable. Follow-up blood work was unremarkable. Her potassium was normal at discharge. Patient was discharged back to the snf facility in a stable state. On the day of discharge, patient was seen and examined. She complains of pain in the right eye. Physical exam was unremarkable. Patient was easily distracted and had no pain. She was reported to be emotionally labile throughout the day. Physical Exam Narrative Physical exam: General: Alert, Oriented x3, Cooperative, emotionally labile HEENT: Atraumatic Oral: Moist Mucosa Neck: Supple Lungs: Diminished to auscultation Cardiovascular: HS I+II, regular, no murmurs Abdomen: Bowel Sounds Present, Soft, Non Tender Extremities: No edema Weight / BMI Weight Weight: 65.9 kg Body Mass Index (BMI) 24.1 ABG / Lab / Microbiology Data Result Diagrams: 09/03/21 06:30 09/03/21 06:30 Laboratory: Laboratory Results - last 24 hr 09/02/21 20:03: Sodium 132 L, Potassium 3.0 L, Chloride 93 L, Carbon Dioxide 32.0, Anion Gap 7, BUN 11, Creatinine 0.59, Estim Creat Clear Calc 45.76, Est GFR (MDRD) Af Amer 128, Est GFR (MDRD) Non-Af 106, BUN/Creatinine Ratio 18.5, Glucose 177 H, Calcium 10.2 H 09/02/21 20:03: Magnesium 2.1 09/03/21 06:30: WBC 10.8, RBC 3.88 L, Hgb 11.6 L, Hct 34.9 L, MCV 89.9, MCH 29.9, MCHC 33.2, RDW Std Deviation 48.3 H, RDW Coeff of Jordin 14.7 H, Plt Count 281, MPV 9.1, Immature Gran % (Auto) 0.300, Neut % (Auto) 75.1 H, Lymph % (Auto) 15.8 L, [place] % (Auto) 8.5, Eos % (Auto) 0.0, Baso % (Auto) 0.3, Absolute Neuts (auto) 8.1 H, Absolute Lymphs (auto) 1.71, Nucleated RBC % 0 09/03/21 06:30: Sodium 134 L, Potassium 3.9, Chloride 103, Carbon Dioxide 27.0, Anion Gap 4 L, BUN 13, Creatinine 0.46 L, Estim Creat Clear Calc 45.76, Est GFR (MDRD) Af Amer 174, Est GFR (MDRD) Non-Af 143, BUN/Creatinine Ratio 28.5 H, G lucose 146 H, Calcium 8.8 Meaningful Use Info Meaningful Use Diagnoses (Choose all that apply): None applicable Discharge Plan Admission Admit Date/Time: 09/02/21 22:36 Primary Reason for Your Visit: Intractable nausea and vomiting Attending Provider: Julia Noonan Primary Care Provider: Saulo Pagan Discharge Orders/Prescriptions Prescriptions: New Ensure Compact Liquid 118 ml PO TIDCM Qty: 0 RF: 0 Continued Myrbetriq 25 mg tablet extended release 24 hr 25 mg PO BID RF: 0 sennosides-docusate sodium [Senexon-S] 8.6-50 mg tablet 2 tab PO BID RF: 0 calcium carbonate [Oyster Shell Calcium] 500 mg calcium (1,250 mg) tablet 500 mg PO BID RF: 0 fluticasone furoate-vilanterol 100-25 mcg/dose blister with device 2 puff INHALATION DAILY RF: 0 oxcarbazepine 600 mg tablet 600 mg PO BID Qty: 60 RF: 3 phenobarbital 32.4 mg tablet 32.4 mg PO BID Qty: 60 RF: 3 hydrocortisone 2.5 % cream 1 applic topical TID Qty: 30 RF: 0 lactulose 20 gram/30 mL solution 20 g PO BID Qty: 1200 RF: 0 bisacodyl 10 mg suppository 10 mg [place] DAILY PRN (Reason: Constipation) RF: 0 mineral oil [Fleet Mineral Oil] Enema 118 ml [place] DAILY PRN (Reason: CONSTIATION) RF: 0 calcium polycarbophil [Fiber Laxative (ca polycarbo)] 625 mg tablet 1,250 mg PO BID RF: 0 latanoprost 0.005 % drops 1 drp ophthalmic (eye) QPM RF: 0 magnesium hydroxide [Milk of Magnesia] 400 mg/5 mL suspension 30 ml PO DAILY PRN (Reason: GI UPSET) RF: 0 benztropine 1 mg tablet 1 mg PO QNOON Qty: 30 RF: 0 benztropine 2 mg tablet 2 mg PO QAM AND QHS RF: 0 duloxetine 20 MG capsule,delayed release(DR/EC) 20 mg PO DAILY RF: 0 ropinirole 2 MG tablet 2 mg PO QHS RF: 0 multivitamin Tablet 1 tab PO 1200 RF: 0 cholecalciferol (vitamin D3) 1,250 mcg (50,000 unit) capsule 1,250 mcg PO WE RF: 0 methadone 10 mg tablet 10 mg PO TID 5 Days Qty: 15 RF: 0 ondansetron 4 mg Tablet,Disintegrating 4 mg PO Q6H PRN (Reason: Nausea) RF: 0 nitroglycerin 0.4 mg Tablet, Sublingual 0.4 mg sublingual Q5M PRN (Reason: CHEST PAIN) Qty: 30 RF: 0 Metamucil Fiber Singles 3.4 gram Powder In Packet 1 packet PO TID Qty: 0 RF: 0 temazepam 30 mg Capsule 30 mg PO QHS PRN (Reason: Sleep) Qty: 0 RF: 0 midodrine 10 mg tablet 10 mg PO TID Qty: 90 RF: 0 levothyroxine 25 mcg Tablet 25 mcg PO DAILY RF: 0 brimonidine 0.2 % Drops 1 drp EACH EYE BID RF: 0 atorvastatin 40 mg tablet 40 mg PO QHS RF: 0 polyethylene glycol 3350 17 gram powder in packet 17 g PO DAILY RF: 0 ferrous sulfate [FeroSul] 325 mg (65 mg iron) tablet 325 mg PO QODAY RF: 0 pantoprazole 40 mg tablet,delayed release (DR/EC) 40 mg PO BID Qty: 60 RF: 1 potassium chloride 20 MEQ tablet 20 meq PO DAILY Qty: 0 RF: 0 Incruse Ellipta 62.5 mcg/actuation Blister With Device 1 puff inhalation DAILY Qty: 0 RF: 0 Referrals / Follow Up: Saulo Pagan MD [Primary Care Provider] - Within 2 Weeks Disposition Disposition (needs filled in before D/C Order can be placed): [facility] Charges/Coding Visit Charges OBSV E&M: 96704 Observation care discharge
--- NOTE | 2021-09-03 13:33 | CHAPLAIN ---
Type of Pastoral Visit _x__ Initial Visit ___ Follow-up Visit ___ On-call Visit ___ General Patient Visit ___ Spiritual Assessment ___ Family Conference ___ Bereavement ___ Rapid Response ___ Code Blue ___ Other (describe below) Pastoral Care Referral From _x__ Patient ___ Family ___ Nurse ___ Physician ___ Financial Compliance Officer ___ Bag Machine Adjuster ___ Other (describe below) Sacrament/Intervention _x__ Active listening ___ Anointing ___ Amish ___ Bereavement ___ Communion ___ Kimberly exploration ___ ___ Life review _x__ Prayer ___ Reconciliation ___ Sacrament of Sick _x__ Supportive presence ___ Wedding ___ Other (describe below) Pastoral Comments patient's first words are they are going to send me home which she further explains of her experience at [facility] and desire to stay in hospital instead; pt is tearful as she further speaks of no family or friends that are available to her; pt talks and this relief man listens, affirms, and prayers for her;
--- NOTE | 2021-09-03 15:25 | NURSING ---
pt became upset after notified [facility]. She stated list of things she is upset about there and wishes to live here'. lengthy disc re hospitalization for illness vs extended care. encouraged pt to disc w/her sons. She immediately began to c/o of pain/nausea. She shoved her finger down her throat in an attempt to vomit. This RN disc approp ways to deal w/frustrations w/living arrangement. STERNMAN/charge nurse notified.
--- NOTE | 2021-09-03 15:49 | CASEMGMT ---
Discharge Therapy Coordinator Faxed over D/C orders to Yana at the [facility]. Notified RN of cook pickled meat time of 6:30pm. Called Samson the son and his is aware. Allison Eddy Discharge Therapy Coordinator
== END 2021-09-03 11:46 | disposition skilled nursing facility (03) ==
LOC: ED 22:38 → PCU 23:14
PROVIDERS: Admitting Provider Hospitalist; Emergency Provider Emergency Medicine; PCP Family Medicine; Visit Provider Internal Medicine
DX: R11.2 Nausea with vomiting, unspecified (principal); J44.9 Chronic obstructive pulmonary disease, unspecified; G40.909 Epilepsy, unspecified, not intractable, without status epilepticus; R10.13 Epigastric pain; R19.7 Diarrhea, unspecified; E87.6 Hypokalemia; K92.1 Melena; G89.4 Chronic pain syndrome; I11.9 Hypertensive heart disease without heart failure; K44.9 Diaphragmatic hernia without obstruction or gangrene; K62.3 Rectal prolapse; M48.00 Spinal stenosis, site unspecified; I25.2 Old myocardial infarction; E03.9 Hypothyroidism, unspecified; E55.9 Vitamin D deficiency, unspecified; G25.81 Restless legs syndrome; G47.00 Insomnia, unspecified; K59.09 Other constipation; F32.A Depression, unspecified; F41.9 Anxiety disorder, unspecified; Z66 Do not resuscitate; Z99.81 Dependence on supplemental oxygen; Z79.899 Other long term (current) drug therapy; Z87.891 Personal history of nicotine dependence; Z79.51 Long term (current) use of inhaled steroids; Z79.890 Hormone replacement therapy; Z86.718 Personal history of other venous thrombosis and embolism; K62.6 Ulcer of anus and rectum
CPT/HCPCS: 74177; 80048; 80053; 81001; 83690; 83735; 85025; 93005; 94640; 96361; 96365; 96366; 96367; 96372; 96374; 96375; 97802; 99218; 99285; 99406; J7030; J7040; Q9967; A4216; G0378; J2405

== ENCOUNTER 2021-09-29 02:10 | Emergency (ER) | payer MEDICARE, MEDICAID, SELFPAY ==
[2021-09-29 02:13] VITALS: BP 133/83; PULSE 106; RESP 16; TEMP 36.4; O2SAT 97
--- NOTE | 2021-09-29 02:33 | CT_ITS ---
STUDY: CT ABDOMEN AND PELVIS WITH CONTRAST REASON FOR EXAM: Female, 71 years old. pain RADIATION DOSAGE (If Supplied By Facility): CTDIvol = ( 17.62 ) mGy, DLP = ( 601.83 ) mGycm TECHNIQUE: Transaxial images were obtained from the dome of the diaphragm to the symphysis pubis without oral contrast. IV 100mL Isovue-300 was administered. Sagittal and coronal images were reconstructed. Individualized dose optimization techniques were used for this CT. COMPARISON: September 02, 2021. FINDINGS: The visualized lung bases are unremarkable. The visualized portions of the heart are within normal limits. Mild prominent intrahepatic ducts, especially in the left lobe. Cholecystectomy clips are again noted. The common duct is about 1.1 cm at its midportion, mildly tapering distally, similar to recent prior exam. Normal spleen. Atrophic pancreas. Small cystic lesion at the inferior body of the distal pancreas, estimated to be about 1.1 cm maximum diameter and is stable on axial image #45.. Normal bilateral adrenal glands. Normal renal enhancement. No oral or rectal contrast is present. There is at least moderate to marked wall thickening and mucosal enhancement of the partially included almost collapsed hiatal hernia and prominent distention of most of the stomach with fluid and gas, new from prior exam, with collapsed appearance of second part of duodenum, possibly due to mass, there is a collapsed segment of roughly 2.8 cm in length but it contains mild fluid on prior exam. Cannot exclude underlying inflammation or ulcer. There is mildly prominent fluid and gas in much of the small bowel and moderate fluid, stool and gas in most of the colon. There is prominent stool distending the rectum to 7 cm AP, there appear to be rectal prolapse or anal mass prior exam, appearance suggesting rectal prolapse on prior exam and question of a renal mass on the current exam. Atherosclerotic changes of aortoiliac vessels Normal inferior vena cava. Normal retroperitoneum. Mildly thick-walled urinary bladder but it is only mildly distended. It is distended to roughly 7.3 cm craniocaudal with roughly 6 mm wall. Normal renal enhancement. Atrophic uterus is present. No suspicious adnexal mass. Mild anterolisthesis of L4 with respect to L5 and at least moderate-marked spinal stenosis at L4-5 due to combined degenerative change is similar. Right hip prosthesis. CT/Abdomen/Pelvis W IV Cont ONLY IMPRESSION: There appears to be inflammation of distal esophagus and the hiatal hernia with wall thickening and mucosal enhancement, new since recent prior exam. Also prominently distended and questionably obstructed stomach. Narrowing of a segment of second part of duodenum may be due to inflammation or mass, cannot exclude an associated gastric outlet obstruction or underlying ulcer. Correlate with nausea and vomiting and consider endoscopy with attention to second part of duodenum if it is thought to be indicated. No free air or free fluid. Cholecystectomy again noted. Mildly dilated intrahepatic and extrahepatic ducts are again noted. Similar back to October 23, 2020. Small cystic lesion in the otherwise atrophic-appearing pancreas, similar to recent prior exam and also similar back to earliest comparison exam provided, October 23, 2020. I would be happy to compare to any older exams. Otherwise follow-up CT might be considered in 3-6 months if it is thought to be indicated. Moderate stool in the rectum, presumed rectal fecal impaction. There is subluxation of the pelvic floor but cannot exclude circumferential mass of the anus on this exam, please correlate with appropriate anorectal screening. Mildly thick-walled urinary bladder, nonspecific. Electronically Signed: Aliza Quintanilla MD at 4:52 EDT ,
[2021-09-29] MEDS: Ondansetron 4 MG/2 ML Vial IV ×2 (02:39→05:57)
[2021-09-29 02:44] LABS: Absolute Lymphocyte Count 1.15 X10^3/uL (0.83-4.51); Absolute Neutrophil Count 10.7 X10^3/uL (2.0-7.7); Basophil# 0.04 X10^3/uL; Basophil% 0.3 % (0-1); Eosinophil# 0.01 X10^3/uL; Eosinophils% 0.1 % (0-5); Hematocrit 43.3 % (37-47); Hemoglobin 14.9 g/dL (12.0-15.0); Lymphocyte # 1.15 X10^3/ul (0.83-4.51); Mean Corp Hgb Conc 34.4 g/dL (32-36); Mean Corpuscular Hgb 30.2 pg (27.0-32.0); Mean Corpuscular Volume 87.8 fL (81-99); Mean Platelet Vol. 9.2 fl (6.2-12.0); Monocyte# 0.79 X10^3/uL; Monocyte% 6.2 % (0-10); NRBC Flagged by Analyzer 0 % (0-5); Neutrophil # 10.68 X10^3/uL (2.7-7.7); Neutrophil % 83.9 % (47-70); Platelet Count 340 K/mm3 (150-450); RBC Distribution Width SD 44.5 fl (35.1-43.9); Red Blood Count 4.93 M/mm3 (4.2-5.4); White Blood Count 12.7 K/mm3 (4.4-11.0)
[2021-09-29 02:52] LABS: International Normalized Ratio 1.2; Prothrombin Time (Protime)PT. 14.2 SECONDS (11.7-14.9)
[2021-09-29 03:02] LABS: AST(SGOT) 30 U/L (15-37); Alanine Aminotransfer ALT/SGPT 40 U/L (13-56); Albumin, Serum 3.6 g/dL (3.2-5.0); Alkaline Phosphatase 90 U/L (45-117); Anion Gap 9 (5-15); BUN 24 mg/dL (7-18); Bilirubin, Direct 0.17 mg/dL (0.00-0.30); Chloride 90 mmol/L (98-107); Creatinine, Serum 0.59 mg/dL (0.55-1.02); EST Glomerular Filtration Rate 107 mL/min (>60); Est Glom Filt Rate - Afr Amer 130 mL/min (>60); Estimated Creatinine Clearance 43.75 ml/min; Globulin 3.9 g/dL (2.2-4.2); Glucose 201 mg/dL (74-106); Lipase 17 U/L (73-393); Potassium 3.1 mmol/L (3.5-5.1); Protein, Total 7.5 g/dL (6.4-8.2); Sodium Level 134 mmol/L (136-145)
--- NOTE | 2021-09-29 04:36 | EDS_ITS ---
HPI History of Present Illness Chief Complaint: GI Bleed Narrative Narrative: Patient is a 71-year-old female from the senior living who wears 2 L of nasal cannula oxygen 10/01. retirement reports that patient had bouts of vomiting this evening and they felt that it was dark or coffee ground in color and therefore sent the patient to the ER for evaluation. Patient denies any blood thinner use but does report generalized abdominal discomfort at this time. 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 Chronic constipation Chronic hypoxemic respiratory failure COPD (chronic obstructive pulmonary disease) Debility Degenerative disc disease, lumbar Depression Diverticulosis DVT (deep venous thrombosis) Dyspnea Epilepsy Essential tremor Extrapyramidal disorder Fall Gastritis Grade III hemorrhoids Hemorrhoids Hypertension Hypotension Hypothyroidism Insomnia Left arm weakness Lower GI bleeding Obstructive sleep apnea On home oxygen therapy Pain, chronic Paresthesias Physical debility Polyneuropathy Rectal prolapse Restless leg syndrome Seizure disorder Sleep apnea Smoker Spinal stenosis Spinal stenosis of lumbar region Stercoral ulcer of rectum Stress bladder incontinence, female Suicide attempt Takotsubo cardiomyopathy Tobacco use Vitamin D deficiency Home Medications duloxetine 20 mg PO DAILY 01/07/19 [History Last Taken 04/06/21] ropinirole 2 mg PO QHS 08/08/19 [History Last Taken 04/06/21] calcium carbonate 500 mg calcium (1,250 mg) tablet 500 mg PO BID 05/13/20 [History Last Taken 04/06/21] fluticasone furoate 100 mcg-vilanterol 25 mcg/dose inhalation powder 2 puff INHALATION DAILY 05/13/20 [History Last Taken 04/06/21] sennosides 8.6 mg-docusate sodium 50 mg tablet 2 tab PO BID 05/13/20 [History Last Taken 04/06/21] oxcarbazepine 600 mg tablet 600 mg PO BID #60 tab 10/13/20 [Rx Last Taken 04/06/21] phenobarbital 32.4 mg tablet 32.4 mg PO BID #60 tab 10/13/20 [Rx Last Taken 04/06/21] cholecalciferol (vitamin D3) 1,250 mcg PO WE 10/20/20 [History Last Taken 04/01/21] multivitamin 1 tab PO 1200 10/20/20 [History Last Taken 04/06/21] methadone 10 mg PO TID 5 Days #15 tab 10/25/20 [Rx Last Taken 04/07/21 06:00] ondansetron 4 mg PO Q6H PRN 01/10/21 [History Last Taken 04/07/21] Metamucil Fiber Singles 1 packet PO TID #0 ea 01/21/21 [Rx Last Taken 04/07/21 06:00] midodrine 10 mg PO TID #90 tab 01/21/21 [Rx Last Taken 04/06/21] nitroglycerin 0.4 mg SUBLINGUAL Q5M PRN #30 tab 01/21/21 [Rx Last Taken Unknown] temazepam 30 mg PO QHS PRN #0 cap 01/21/21 [Rx Last Taken 04/05/21] atorvastatin 40 mg PO QHS 04/07/21 [History Last Taken 04/06/21] brimonidine 1 drp EACH EYE BID 04/07/21 [History Last Taken 04/06/21] ferrous sulfate [FeroSul] 325 mg PO QODAY 04/07/21 [History Last Taken 04/01/21] levothyroxine 25 mcg PO DAILY 04/07/21 [History Last Taken 04/06/21] polyethylene glycol 3350 17 g PO DAILY 04/07/21 [History Last Taken 04/06/21] pantoprazole 40 mg PO BID #60 tab 04/10/21 [Rx Last Taken Unknown] Incruse Ellipta 1 puff INHALATION DAILY #0 ea 04/18/21 [Rx Last Taken Unknown] potassium chloride 20 meq PO DAILY #0 tab 04/18/21 [Rx Last Taken 04/06/21] lactulose 20 gram/30 mL oral solution 20 g PO BID #1200 ml 04/21/21 [Rx Last Taken Unknown] benztropine 1 mg tablet 1 mg PO QNOON #30 tab 08/06/21 [Rx Last Taken Unknown] benztropine 2 mg tablet 2 mg PO QAM AND QHS tab 08/06/21 [History Last Taken Unknown] bisacodyl 10 mg rectal suppository 10 mg SD DAILY PRN 08/06/21 [History Last Taken Unknown] latanoprost 0.005 % eye drops 1 drp OPHTHALMIC (EYE) QPM ml 08/06/21 [History Last Taken Unknown] magnesium hydroxide 400 mg/5 mL oral suspension 30 ml PO DAILY PRN ml 08/06/21 [History Last Taken Unknown] metoclopramide HCl [Reglan] 10 mg PO TID PRN PRN #21 tab 09/29/21 [Rx Last Taken Unknown] sucralfate [Carafate] 10 ml PO BID #1000 ml 09/29/21 [Rx Last Taken Unknown] Allergy/AdvReac Type Severity Reaction Status Date / Time codeine Allergy Mild HIVES Verified 09/29/21 02:16 corn Allergy Hives Verified 09/29/21 02:16 Penicillins Allergy Anaphylaxis Verified 09/29/21 02:16 Family History Mother Diabetes Heart disease Hypertension CAD (coronary artery disease) CVA (cerebral vascular accident) Thyroid disorder Father Colon cancer Surgical History History of bilateral carpal tunnel release History of bilateral cataract extraction History of blepharoplasty History of cystoscopy History of esophagogastroduodenoscopy (EGD) (~03/07/19) History of left heart catheterization (01/16/21) History of right hip replacement History of right salpingo-oophorectomy S/P appendectomy S/P laparoscopic cholecystectomy Status post ORIF of fracture of ankle Social History (Updated 09/03/21 @ 00:30 by Jennifer Barrientos) household members: none housing: senior living number of children: 1 pets and animals: Yes (cat) pets and animals: cat(s) Smoking Status: Former smoker Tobacco: How many years used: 50 alcohol intake: never substance use type: does not use well-balanced diet: rarely or never do you feel safe at home: Yes ROS ROS ED Constitutional Constitutional ED: Denies chills or fever(s) ENT ENT ED: Denies sore throat Cardiovascular Cardiovascular: Denies chest pain Respiratory/Chest Respiratory/Chest: Denies cough or dyspnea Gastrointestinal Gastrointestinal: Reports abdominal pain, constipation, nausea and vomiting; Denies diarrhea Genitourinary Genitourinary ED: Denies dysuria Musculoskeletal Musculoskeletal: Denies myalgias Integumentary Denies rash Neurologic Neurologic: Denies headache(s) Hematologic/Lymphatic Hematologic/Lymphatic: Denies easy bleeding or easy bruising EXAM Physical Exam Const Vital Signs: 09/29/21 02:13 09/29/21 06:36 Temperature 97.6 F L Temperature Source Temporal Pulse Rate 106 H 101 H Respiratory Rate 16 18 Blood Pressure 133/83 H Blood Pressure Mean 99 Pulse Ox 97 98 Oxygen Delivery Method Nasal Cannula Room Air Oxygen Flow Rate (L/min) 1 Positive well nourished and well developed General Appearance ED: well developed and pallor HEENT Reports moist mucous membranes HEENT Narrative: No dried blood or active bleeding noted the posterior pharynx Eyes PERRL and EOMs intact bilaterally General Eye ED: Yes pale conjunctiva Neck supple Neck Narrative: No crepitance palpated Resp normal respiratory effort and clear to auscultation bilaterally Cardio regular rate and regular rhythm Rate: other Other Details: Radial pulses are +2-4 bilaterally are equal and symmetric GI non-distended and no masses GI Narrative: There is mild diffuse pain with palpation without voluntary guarding or rigidity. No pulsatile mass or fluid wave Auscultation: normoactive bowel sounds Palpation: soft Narrative: Rectal exam shows nonthrombosed nonbleeding external hemorrhoid. Stool is dark in color and Hemoccult positive Extremity normal to inspection Neuro oriented x3 and CN's II-XII intact bilaterally Sensorium / Orientation: alert Psych Psych Narrative: Patient has a depressed/flat affect Mood & Affect: depressed Skin no rashes or lesions noted General Skin Exam: pallor MDM MDM MDM Narrative Medical decision making narrative: Patient presented to the ER afebrile and normotensive with a soft nonsurgical abdomen. retirement reported coffee- ground emesis but there was no sample sent in to confirm this. Patient had no b outs of vomiting in the ER and her stomach was not domed or distended to suggest ileus or obstruction. However with the hematemesis I did elect to perform a CT scan. CT scan did show inflammation of the distal esophagus and the hiatal hernia consistent with her scope from March 2021 indicating gastritis. It did talk about a questionably obstructed stomach but this is not clinically correlate based on her physical exam. Patient also has had no bouts of vomiting while in the ER. I discussed the case with GI on-call Dr. Lobato. He was the one to perform the EGD and colonoscopy back in March 2021. He agrees that as patient is hemodynamically stable with a physical exam does not suggest obstruction and the fact she has had a recent upper and lower scope that there is no need for admission. He recommends patient be placed on Carafate and Reglan which will be prescribed at this time. But overall as her stomach remains soft and nonsurgical and her vital stable she can be discharged and follow-up on an outpatient basis. Lab Data Attestation: I reviewed the patient's lab results. Labs: Laboratory Results - last 24 hr 09/29/21 09/29/21 09/29/21 02:30 02:30 02:30 WBC 12.7 H RBC 4.93 Hgb 14.9 Hct 43.3 MCV 87.8 MCH 30.2 MCHC 34.4 RDW Std Deviation 44.5 H RDW Coeff of Jordin 14.0 Plt Count 340 MPV 9.2 Immature Gran % (Auto) 0.500 Neut % (Auto) 83.9 H Lymph % (Auto) 9.0 L [place] % (Auto) 6.2 Eos % (Auto) 0.1 Baso % (Auto) 0.3 Absolute Neuts (auto) 10.7 H Absolute Lymphs (auto) 1.15 Nucleated RBC % 0 PT 14.2 INR 1.2 APTT 21.0 L Sodium 134 L Potassium 3.1 L Chloride 90 L Carbon Dioxide 35.0 H Anion Gap 9 BUN 24 H Creatinine 0.59 Estim Creat Clear Calc 43.75 Est GFR (MDRD) Af Amer 130 Est GFR (MDRD) Non-Af 107 BUN/Creatinine Ratio 41.0 H Glucose 201 H Calcium 9.0 Total Bilirubin 0.50 Direct Bilirubin 0.17 AST 30 ALT 40 Alkaline Phosphatase 90 Total Protein 7.5 Albumin 3.6 Globulin 3.9 Lipase 17 L Radiography Diagnostic Testing: Clinical Impression(s) from Imaging Studies Abdomen/Pelvis CT 09/29/21 02:33 IMPRESSION: There appears to be inflammation of distal esophagus and the hiatal hernia with wall thickening and mucosal enhancement, new since recent prior exam. Also prominently distended and questionably obstructed stomach. Narrowing of a segment of second part of duodenum may be due to inflammation or mass, cannot exclude an associated gastric outlet obstruction or underlying ulcer. Correlate with nausea and vomiting and consider endoscopy with attention to second part of duodenum if it is thought to be indicated. No free air or free fluid. Cholecystectomy again noted. Mildly dilated intrahepatic and extrahepatic ducts are again noted. Similar back to October 23, 2020. Small cystic lesion in the otherwise atrophic-appearing pancreas, similar to recent prior exam and also similar back to earliest comparison exam provided, October 23, 2020. I would be happy to compare to any older exams. Otherwise follow-up CT might be considered in 3-6 months if it is thought to be indicated. Moderate stool in the rectum, presumed rectal fecal impaction. There is subluxation of the pelvic floor but cannot exclude circumferential mass of the anus on this exam, please correlate with appropriate anorectal screening. Mildly thick-walled urinary bladder, nonspecific. Electronically Signed: Aliza Quintanilla MD at 4:52 EDT , ADDENDUM: 09/29/21 0501 IMPRESSION: There appears to be inflammation of distal esophagus and the hiatal hernia with wall thickening and mucosal enhancement, new since recent prior exam. Also prominently distended and questionably obstructed stomach. Narrowing of a segment of second part of duodenum may be due to inflammation or mass, cannot exclude an associated gastric outlet obstruction or underlying ulcer. Correlate with nausea and vomiting and consider endoscopy with attention to second part of duodenum if it is thought to be indicated. No free air or free fluid. Cholecystectomy again noted. Mildly dilated intrahepatic and extrahepatic ducts are again noted. Similar back to October 23, 2020. Small cystic lesion in the otherwise atrophic-appearing pancreas, similar to recent prior exam and also similar back to earliest comparison exam provided, October 23, 2020. I would be happy to compare to any older exams. Otherwise follow-up CT might be considered in 3-6 months if it is thought to be indicated. Moderate stool in the rectum, presumed rectal fecal impaction. There is subluxation of the pelvic floor but cannot exclude circumferential mass of the anus on this exam, please correlate with appropriate anorectal screening. Mildly thick-walled urinary bladder, nonspecific. N.B. : Cheko Aguilar/[place] mathews OT, confirmed on 09/29/2021 04:54:10 (ET) that the healthcare facility has received the radiology report. Electronically Signed: Aliza Quintanilla MD at 4:52 EDT , Discharge Plan Triage Chief Complaint: GI Bleed ED Provider: Samson Slater Dx/Rx/DC Orders Clinical Impression: Gastritis and duodenitis, Esophageal hiatal hernia Instructions: ED Gastritis (Adult) Prescriptions: New sucralfate [Carafate] 100 mg/mL suspension 10 ml PO BID Qty: 1000 RF: 0 metoclopramide HCl [Reglan] 10 mg tablet 10 mg PO TID PRN PRN (Reason: nausea and vomiting) Qty: 21 RF: 0 No Action sennosides-docusate sodium [Senexon-S] 8.6-50 mg tablet 2 tab PO BID RF: 0 calcium carbonate [Oyster Shell Calcium] 500 mg calcium (1,250 mg) tablet 500 mg PO BID RF: 0 fluticasone furoate-vilanterol 100-25 mcg/dose blister with device 2 puff INHALATION DAILY RF: 0 oxcarbazepine 600 mg tablet 600 mg PO BID Qty: 60 RF: 3 phenobarbital 32.4 mg tablet 32.4 mg PO BID Qty: 60 RF: 3 lactulose 20 gram/30 mL solution 20 g PO BID Qty: 1200 RF: 0 bisacodyl 10 mg suppository 10 mg SD DAILY PRN (Reason: Constipation) RF: 0 latanoprost 0.005 % drops 1 drp ophthalmic (eye) QPM RF: 0 magnesium hydroxide [Milk of Magnesia] 400 mg/5 mL suspension 30 ml PO DAILY PRN (Reason: GI UPSET) RF: 0 benztropine 1 mg tablet 1 mg PO QNOON Qty: 30 RF: 0 benztropine 2 mg tablet 2 mg PO QAM AND QHS RF: 0 duloxetine 20 MG capsule,delayed release(DR/EC) 20 mg PO DAILY RF: 0 ropinirole 2 MG tablet 2 mg PO QHS RF: 0 multivitamin Tablet 1 tab PO 1200 RF: 0 cholecalciferol (vitamin D3) 1,250 mcg (50,000 unit) capsule 1,250 mcg PO WE RF: 0 methadone 10 mg tablet 10 mg PO TID 5 Days Qty: 15 RF: 0 ondansetron 4 mg Tablet,Disintegrating 4 mg PO Q6H PRN (Reason: Nausea) RF: 0 nitroglycerin 0.4 mg Tablet, Sublingual 0.4 mg sublingual Q5M PRN (Reason: CHEST PAIN) Qty: 30 RF: 0 Metamucil Fiber Singles 3.4 gram Powder In Packet 1 packet PO TID Qty: 0 RF: 0 temazepam 30 mg Capsule 30 mg PO QHS PRN (Reason: Sleep) Qty: 0 RF: 0 midodrine 10 mg tablet 10 mg PO TID Qty: 90 RF: 0 levothyroxine 25 mcg Tablet 25 mcg PO DAILY RF: 0 brimonidine 0.2 % Drops 1 drp EACH EYE BID RF: 0 atorvastatin 40 mg tablet 40 mg PO QHS RF: 0 polyethylene glycol 3350 17 gram powder in packet 17 g PO DAILY RF: 0 ferrous sulfate [FeroSul] 325 mg (65 mg iron) tablet 325 mg PO QODAY RF: 0 pantoprazole 40 mg tablet,delayed release (DR/EC) 40 mg PO BID Qty: 60 RF: 1 potassium chloride 20 MEQ tablet 20 meq PO DAILY Qty: 0 RF: 0 Incruse Ellipta 62.5 mcg/actuation Blister With Device 1 puff inhalation DAILY Qty: 0 RF: 0 Primary Care Provider: Saulo Pagan Referrals: Saulo Pagan MD [Primary Care Provider] - Friend,DO Jesus [STAFF PHYSICIAN] - 3-5 Days if not improving Activity Restrictions/Additional Instructions: Please take the Carafate and Reglan as directed with your other medications to help control your symptoms and follow-up with GI for repeat evaluation Disposition Disposition: Home, Self Care
[2021-09-29 06:36] VITALS: PULSE 101; RESP 18; O2SAT 98
[2021-09-29 09:00] VITALS: BP 128/72; PULSE 95; RESP 18; O2SAT 96
== END 2021-09-29 09:01 | disposition home or self-care (01) ==
PROVIDERS: Emergency Provider Emergency Medicine; PCP Family Medicine; Visit Provider Emergency Medicine
DX: K29.70 Gastritis, unspecified, without bleeding (principal); J44.9 Chronic obstructive pulmonary disease, unspecified; G40.909 Epilepsy, unspecified, not intractable, without status epilepticus; K29.80 Duodenitis without bleeding; K44.9 Diaphragmatic hernia without obstruction or gangrene; I10 Essential (primary) hypertension; E03.9 Hypothyroidism, unspecified; G25.81 Restless legs syndrome; E55.9 Vitamin D deficiency, unspecified; F32.A Depression, unspecified; Z79.899 Other long term (current) drug therapy; Z99.81 Dependence on supplemental oxygen; Z87.891 Personal history of nicotine dependence; Z80.0 Family history of malignant neoplasm of digestive organs; I25.2 Old myocardial infarction
CPT/HCPCS: 74177; 80048; 80076; 82274; 83690; 85025; 85610; 85730; 96361; 96365; 96366; 96375; 96376; 99285; J7040; Q9967; A4216; J2405; J3490

== ENCOUNTER → 2021-10-08 | Outpatient (CLI) | payer MEDICARE, MEDICAID, SELFPAY ==
--- NOTE | 2021-10-08 15:17 | RAD_ITS ---
EXAM: XR LUMBOSACRAL SPINE, 2 OR 3 VIEWS CLINICAL INDICATION: FALL TECHNIQUE: Frontal and lateral views of the lumbar spine and sacrum. This report was created using [employer] report generation technology. COMPARISON: December 30, 2020 FINDINGS: VERTEBRAE: Diffuse osteoporosis and multilevel facet arthropathy unchanged from prior exam. Stable mild anterior listhesis of L4 on L5. Preserved vertebral body height. No fracture. No spondylolisthesis. Preservation of the normal lumbar lordosis. DISC SPACES: No acute findings. Mild L5-S1 disc space narrowing. GASTROINTESTINAL TRACT: Unremarkable as visualized. Included bowel gas pattern is non-obstructive. RAD/Lumbar Spine 2 or 3 Views IMPRESSION: Stable degenerative changes. No acute abnormality. Electronically Signed: Derick Mancia MD at 16:07 EDT ,
--- NOTE | 2021-10-08 15:17 | RAD_ITS ---
EXAM: XR THORACIC SPINE, 3 VIEWS CLINICAL INDICATION: Trauma TECHNIQUE: Frontal, lateral and swimmer''s views of the thoracic spine. This report was created using [employer] report generation technology. COMPARISON: December 27, 2012 FINDINGS: VERTEBRAE: Mild diffuse vertebral body osteophytosis. Preserved vertebral body height. No fracture. No spondylolisthesis. Preservation of the normal thoracic kyphosis. No significant facet arthropathy. DISC SPACES: Unremarkable. Disc spaces are maintained. RAD/Thoracic Spine 3 Views IMPRESSION: No acute abnormality. No significant interval change. Electronically Signed: Derick Mancia MD at 16:11 EDT ,
== END | disposition home or self-care (01) ==
LOC: RAD 15:14
PROVIDERS: PCP Family Medicine; Visit Provider Anesthesiology Pain Medicine
DX: S39.92XA Unspecified injury of lower back, initial encounter (principal); W19.XXXA Unspecified fall, initial encounter
CPT/HCPCS: 72072; 72100

== ENCOUNTER → 2021-11-25 | Outpatient (CLI) | payer MEDICARE, MEDICAID, SELFPAY ==
--- NOTE | 2021-11-25 14:02 | ECHOD_ITS ---
Reason For Study: OTHER Procedure This was a 2D Doppler, Color Flow transthoracic echocardiogram. The exam was of adequate technical quality. Exam performed in department. Left Ventricle Normal LV size. Left ventricular systolic function is normal. The estimated ejection fraction is 65 %. Diastolic function is indeterminate. No regional wall motion abnormalities noted. Right Ventricle Normal RV size. Normal systolic function. Atria Normal left atrium. Normal right atrium. No doppler evidence for ASD. Mitral Valve There is no mitral annular calcification. Normal mitral valve. Mild (1+) mitral valve insufficiency. Tricuspid Valve Normal tricuspid valve. Trivial tricuspid valve insufficiency. Right ventricular systolic pressure estimated to be 34 mmHg. Aortic Valve Trisinus/trileaflet aortic valve. Mild diffuse aortic valve thickening. Mild focal aortic valve calcification. Pulmonic Valve The pulmonic valve is not well visualized. Great Vessels Normal sized aortic root. Pericardium/Pleural No pericardial effusion. MMode/2D Measurements & Calculations LVIDd: 4.3 cm IVSd: 1.4 cm Ao root diam: 3.0 cm LVIDs: 2.5 cm LVPWd: 0.89 cm RVDd: 3.1 cm FS: 41.3 % LAV(MOD-bp): 65.5 ml LVAd ap4: 24.0 cm2 SV(MOD-sp4): 47.0 ml LAV(MOD-bp) Indexed: 36.9 ml/m2 LVLd ap4: 6.7 cm LAV(MOD-sp2): 75.5 ml EDV(MOD-sp4): 69.2 ml LAV(MOD-sp4): 52.5 ml EDV(sp4-el): 72.4 ml LVAs ap4: 12.4 cm2 LVLs ap4: 5.7 cm ESV(MOD-sp4): 22.3 ml ESV(sp4-el): 23.1 ml EF(MOD-sp4): 67.8 % EF(sp4-el): 68.1 % SV(sp4-el): 49.3 ml LA A4 area: 19.6 cm2 LA dimension(2D): 3.3 cm RA A4 area: 17.2 cm2 Doppler Measurements & Calculations MV E max rusty: 77.6 cm/sec Lat Peak E' Rusty: 11.5 cm/sec Med Peak E' Rusty: 5.9 cm/sec MV A max rusty: 73.9 cm/sec E/E' lat: 6.8 E/E' med: 13.1 MV E/A: 1.1 Ao V2 max: 148.3 cm/sec LV V1 max: 93.3 cm/sec PA V2 max: 70.6 cm/sec Ao max P.8 mmHg LV V1 max P.5 mmHg TR max rusty: 279.4 cm/sec TR max P.2 mmHg ECHO/Echo Complete Interpretation Summary Left ventricular systolic function is normal. The estimated ejection fraction is 65 %. Mild (1+) mitral valve insufficiency. Trivial tricuspid valve insufficiency. Mild diffuse aortic valve thickening. Mild focal aortic valve calcification. Right ventricular systolic pressure estimated to be 34 mmHg. Diastolic function is indeterminate. Ordering Physician: Surjit^Aminah^Susan^^JUAN MARTINEZ Referring Physician: Aminah Eddy Performed By: Katelynn Houser RCS
== END | disposition home or self-care (01) ==
LOC: CVS 14:00
PROVIDERS: PCP Family Medicine; Referring Provider Physician Assistant Medical; Visit Provider Physician Assistant Medical
DX: I51.81 Takotsubo syndrome (principal); Z98.890 Other specified postprocedural states
CPT/HCPCS: 93306

== ENCOUNTER 2022-02-03 07:45 | Day surgery (SDC) | payer MEDICARE, MEDICAID, SELFPAY ==
[2022-02-03] VITALS (7 sets, daily range): BP systolic 121–163; BP diastolic 67–117; PULSE 67–83; RESP 16–18; TEMP 36.2–36.6; O2SAT 94–99
--- NOTE | 2022-02-03 | IMM_PTH ---
PATIENT: XANDER RAMIREZ LOC: EN U#:[id number] AGE/SX: 71/F ROOM: RE02/03/[address]: Dr. Jesus Lobato DO : 1950 BED: DIS: 02/03/2022 SPEC #: [id number] RECD: 02/04/22 06:51 STATUS: DWAYNE ROBERTH #: [id number] DANNY: 02/03/22 00:[address]: Jesus Lobato DEPT: IMMUNOHISTOCHEMISTRY RECD BY: Gaurang Estrada ENTERED: 02/04/22 06:51 SP TYPE: IMMUNO NASRIN DR: Dr. Saulo Pagan MD Tissues: COLON BIOPSY Procedures: H Pylori (initial) KI-67 (add) P53 (add) PHYSICIAN & INSTITUTION [place] [id number] SPECIMEN INFORMATION: Tissue Source: A. Gastric ulcer, B. Distal esophagus Clinical Info: Chronic constipation, stercoral rectal ulcer, Fitzgerald?s esophagus Specimen Number: [id number] A, B CPT code: 09348 X2, 08179 METHODOLOGY: Deparaffinized sections of prefer/formalin-fixed tissue or PAP/DQ stained slides are incubated with monoclonal/polyclonal antibodies/oligonucleotide probes. Localization is made via biotin free immunoperoxidase method. Appropriate controls are performed and reacted as expected. Results on target cell population are indicated in the following table: RESULTS: ANTIBODY / CLONE RESULT Block A H Pylori (polyclonal) negative Block B P53 (DO-7) negative Ki-67 (30-9) positive, very low These tests were developed and their performance characteristics determined by [facility]. They may not have been cleared or approved by the U.S. Food and Drug Administration. The FDA has determined that such clearance or approval is not necessary. The above immunohistochemical/dualISH markers are ordered and reviewed by the Pathologist. INTERPRETATION: A. Gastric ulcer, biopsy: Negative for Helicobacter pylori organisms. B. Distal esophagus, biopsy: Negative for dysplasia SJ:cliff 02/05/22
[2022-02-03] MEDS: Lactated Ringers 1,000 ML 15 ML IV (08:10)
--- NOTE | 2022-02-03 09:09 | PCM.HP.BLA ---
History and Physical Date of Admission: 02/03/22 XANDER RAMIREZ, is a 71 F who presents to the office today for f/u [place] sent her to ED on 09/29/21 for vomiting dark emesis, CT showed inflammation of the distal esophagus and the hiatal hernia consistent with her scope from March 2021 indicating gastritis; ED consulted with Dr Lobato who recommended sucralfate and metoclopramide. Hasn't needed metoclopramide. On her paperwork it appears she is getting bid sucralfate. She was already on pantoprazole for Fitzgerald's. No vomiting since then, also no nausea. No hematemesis, hematochezia or melena. Denies abdominal pain. Alternates diarrhea and constipation. Has chronic constipation from chronic opioid use so she needs intense treatment for that, but then every few days she may have some diarrhea. On 08/27/21 she was hospitalized for nausea and vomiting, had potassium replaced, was stable, discharged back to [place]. Hx GI bleed secondary to stercoral ulcer from chronic constipation. She was hospitalized for this in Mar 2021. EGD bx positive for Fitzgerald's, negative dysplasia. Takes pantoprazole 40 mg BID. Colonoscopy hemorrhoids, large stool ascending colon, large stool cecum, multiple diverticula, one rectal ulcer Lives at [facility] Exam Const General: cooperative and comfortable Other: in wheelchair GI Palpation: soft, no masses and nontender Quality Reporting Tobacco Screening (CMS 138) Smoking Status: Former smoker Assessment and Plan Assessment and Plan (1) Chronic constipation: ?Status:?Inactive (2) Stercoral ulcer of rectum: ?Status:?Acute (3) Fitzgerald's esophagus: ?Status:?Acute ?Plan - Laury Sanchez LAMBSKIN TRIMMER, LAMBSKIN TRIMMER-C: Stable since ED visit and hospitalization for vomiting. She needs to be scheduled for EGD to f/u Fitzgerald's esophagus and gastritis, and colonoscopy to f/u stercoral ulcer. F/u w/ Dr Lobato 2 wks after endoscopy. I have re-examined the patient. There are no clinical changes since date of exam.
--- NOTE | 2022-02-03 09:15 | EGD_PTH ---
PATIENT: XANDER RAMIREZ LOC: EN U#:[id number] AGE/SX: 71/F ROOM: RE02/03/[address]: Dr. Jesus Lobato DO : 1950 BED: DIS: 02/03/2022 SPEC #: [id number] RECD: 02/03/22 11:12 STATUS: DWAYNE ROBERTH #: [id number] DANNY: 02/03/22 09:[address]: Jesus Lobato DEPT: SURGICAL PATHOLOGY RECD BY: Veronica Moya ENTERED: 02/03/22 11:49 SP TYPE: EGD BIOPSY OT DR: Dr. Saulo Pagan MD Tissues: A - Gastric mucous membrane B - Esophagus, NOS C - Rectum, NOS Procedures: Surgery Specimen Level IV HEADER OPERATION: Colonoscopy, EGD ([facility] [place]) and biopsy PRE-OP DIAGNOSIS: Chronic constipation, stercoral rectal ulcer, Fitzgerald?s esophagus TISSUE SUBMITTED: A. Gastric ulcer, B. Distal esophagus, C. Rectal biopsy MICROSCOPIC DIAGNOSIS A. Gastric ulcer, biopsy: Fragments of gastric mucosa with ulceration and acute and chronic inflammation. See comment. B. Distal esophagus, biopsy: Fragments of gastroesophageal mucosa with Intestinal metaplasia (goblet cell metaplasia), consistent with Fitzgerald?s esophagus. Focal mild chronic inflammation. Negative for dysplasia. See comment. C. Rectal biopsy: Fragments of colonic mucosa, no pathologic diagnosis. 02/04/2022 COMMENT A. The results of immunohistochemistry for Helicobacter pylori will be reported separately ([id number]). B. Alcian blue/PAS stain with matched control is used in the evaluation of the specimen. Immunohistochemistry ([id number]) for P53 and Ki-67 will be performed and results will be reported separately. MICROSCOPIC DESCRIPTION Slides are reviewed. GROSS DESCRIPTION A. Received is one container labeled with the patient name and designated gastric ulcer. The specimen consists of two irregular fragment of light johnson soft tissue that in aggregate measure 0.6 x 0.3 x 0.1 cm. The specimen is totally submitted in one cassette. B. Received is one container labeled with the patient name and designated distal esophagus. The specimen consists of two irregular fragment of light johnson soft tissue that in aggregate measure 0.6 x 0.3 x 0.1 cm. The specimen is totally submitted in one cassette. B. Received is one container labeled with the patient name and designated rectal biopsy. The specimen consists of two irregular fragment of light johnson soft tissue that in aggregate measure 0.6 x 0.3 x 0.1 cm. The specimen is totally submitted in one cassette. /SJ:cc 02/03/22 TC:2 CPT:28474 x3, 97370
--- NOTE | 2022-02-03 09:54 | OP.EGD_ITS ---
Patient Name: Bela Sandoval Procedure Date: 02/03/2022 9:11 AM Date of : 1950 Age: 71 Procedure: Upper GI endoscopy Indications: Hematemesis Providers: Jesus Lobato DO Referring MD: Saulo Pagan MD Medicines: Monitored Anesthesia Care Patient Profile: This is a 71 year old female. Refer to note in patient chart for documentation of history and physical. Patient has symptoms of chronic nausea and chronic vomiting. Complications: No immediate complications. Procedure: Pre-Anesthesia Assessment: - Prior to the procedure, a History and Physical was performed, and patient medications and allergies were reviewed. The risks and benefits of the procedure and the sedation options and risks were discussed with the patient. All questions were answered and informed consent was obtained. Patient identification and proposed procedure were verified by the physician in the pre-procedure area. Mental Status Examination: alert and oriented. Airway Examination: normal oropharyngeal airway and neck mobility. Respiratory Examination: clear to auscultation. CV Examination: normal. Prophylactic Antibiotics: The patient does not require prophylactic antibiotics. Prior Anticoagulants: The patient has taken no previous anticoagulant or antiplatelet agents. After reviewing the risks and benefits, the patient was deemed in satisfactory condition to undergo the procedure. The anesthesia plan was to use moderate sedation / analgesia (conscious sedation). Immediately prior to administration of medications, the patient was re-assessed for adequacy to receive sedatives. The heart rate, respiratory rate, oxygen saturations, blood pressure, adequacy of pulmonary ventilation, and response to care were monitored throughout the procedure. The physical status of the patient was re-assessed after the procedure. After obtaining informed consent, the endoscope was passed under direct vision. Throughout the procedure, the patient's blood pressure, pulse, and oxygen saturations were monitored continuously. The colonoscope was introduced through the mouth, and advanced to the second part of duodenum. The upper GI endoscopy was accomplished without difficulty. The patient tolerated the procedure well. Scope In: 9:26:57 AM Scope Out: 9:32:41 AM Total Procedure Duration Time 0 hours 5 minutes 44 seconds Findings: The Z-line was irregular and was found 38 cm from the incisors. Biopsies were taken with a cold forceps for histology. Verification of patient identification for the specimen was done. Estimated blood loss was minimal. A large hiatal hernia was present. One oozing cratered gastric ulcer was found in the gastric body. The lesion was 8 mm in largest dimension. Coagulation for hemostasis using heater probe was successful. Estimated blood loss was minimal. Biopsies were taken with a cold forceps for histology. Verification of patient identification for the specimen was done. Estimated blood loss was minimal. The second portion of the duodenum was normal. Biopsies were taken with a cold forceps for histology. Impression: - Z-line irregular, 38 cm from the incisors. Biopsied. - Large hiatal hernia. - Oozing gastric ulcer. Treated with a heater probe. Biopsied. - Normal second portion of the duodenum. Biopsied. Recommendation: - Await pathology results. - Repeat upper endoscopy in 1 year for surveillance based on pathology results. - Continue present medications. Procedure Code(s): --- Professional --- 04646, 59, Esophagogastroduodenoscopy, flexible, transoral; with control of bleeding, any method 68651, 51, Esophagogastroduodenoscopy, flexible, transoral; with biopsy, single or multiple CPT copyright 2017 [employer]. All rights reserved. The codes documented in this report are preliminary and upon marketing analytics specialist review may be revised to meet current compliance requirements. Jesus Lobato DO 02/03/2022 9:54:39 AM This report has been signed electronically. Number of Addenda: 1 Note Initiated On: 02/03/2022 9:11 AM Addendum Number: 1 Addendum Date: 03/25/2022 6:16:11 AM MAC was used as sedation for this procedure. Jesus Lobato DO 03/25/2022 6:16:15 AM This report has been signed electronically.
--- NOTE | 2022-02-03 09:56 | OP.CCLET_ITS ---
03/25/2022 Saulo Pagan MD [address] [phone] Re : Upper GI endoscopy procedure for Bela Sandoval Dear Dr. Pagan This procedure was performed on Thursday, February 03, 2022. My impressions and recommendations are as follows: Impressions : - Z-line irregular, 38 cm from the incisors. Biopsied. - Large hiatal hernia. - Oozing gastric ulcer. Treated with a heater probe. Biopsied. - Normal second portion of the duodenum. Biopsied. Recommendations : - Await pathology results. - Repeat upper endoscopy in 1 year for surveillance based on pathology results. - Continue present medications. My findings are described in the full procedure note, which is enclosed. If I can be of further assistance, please feel free to contact me at . Sincerely, Jesus Lobato, 02/03/2022 9:54:39 AM This report has been signed electronically.
--- NOTE | 2022-02-03 10:01 | OP.COLON_ITS ---
Patient Name: Bela Sandoval Procedure Date: 02/03/2022 9:32 AM Date of : 1950 Age: 71 Procedure: Colonoscopy Indications: Hematochezia Providers: Jesus Lobato DO Referring MD: Saulo Pagan MD Medicines: Monitored Anesthesia Care Patient Profile: This is a 71 year old female. Refer to note in patient chart for documentation of history and physical. Patient has symptoms of chronic nausea and chronic vomiting. Last Colonoscopy: within the past 3 years. Complications: No immediate complications. Procedure: Pre-Anesthesia Assessment: - Prior to the procedure, a History and Physical was performed, and patient medications and allergies were reviewed. The risks and benefits of the procedure and the sedation options and risks were discussed with the patient. All questions were answered and informed consent was obtained. Patient identification and proposed procedure were verified by the physician in the pre-procedure area. Mental Status Examination: alert and oriented. Airway Examination: normal oropharyngeal airway and neck mobility. Respiratory Examination: clear to auscultation. CV Examination: normal. Prophylactic Antibiotics: The patient does not require prophylactic antibiotics. Prior Anticoagulants: The patient has taken no previous anticoagulant or antiplatelet agents. After reviewing the risks and benefits, the patient was deemed in satisfactory condition to undergo the procedure. The anesthesia plan was to use moderate sedation / analgesia (conscious sedation). Immediately prior to administration of medications, the patient was re-assessed for adequacy to receive sedatives. The heart rate, respiratory rate, oxygen saturations, blood pressure, adequacy of pulmonary ventilation, and response to care were monitored throughout the procedure. The physical status of the patient was re-assessed after the procedure. After I obtained informed consent, the scope was passed under direct vision. Throughout the procedure, the patient's blood pressure, pulse, and oxygen saturations were monitored continuously. The colonoscope was introduced through the anus and advanced to the cecum, identified by appendiceal orifice and ileocecal valve. The colonoscopy was performed without difficulty. The patient tolerated the procedure well. The quality of the bowel preparation was poor. Scope In: 9:35:39 AM Scope Withdrawal Time 0 hours 5 minutes 3 seconds Scope Out: 9:47:03 AM Total Procedure Duration Time 0 hours 11 minutes 24 seconds Findings: The digital rectal exam findings include decreased sphincter tone. Multiple small and large-mouthed diverticula were found in the recto-sigmoid colon, sigmoid colon and descending colon. There was no evidence of diverticular bleeding. An area of mildly congested mucosa was found in the rectum. Estimated blood loss: none. Impression: - Preparation of the colon was poor. - Decreased sphincter tone found on digital rectal exam. - Moderate diverticulosis in the recto-sigmoid colon, in the sigmoid colon and in the descending colon. There was no evidence of diverticular bleeding. - Congested mucosa in the rectum. - No specimens collected. Recommendation: - Discharge patient to home. - Resume previous diet. - Continue present medications. - Await pathology results. - Repeat colonoscopy in 5 years for surveillance. Procedure Code(s): --- Professional --- 73293, Colonoscopy, flexible; diagnostic, including collection of specimen(s) by brushing or washing, when performed (separate procedure) CPT copyright 2017 [employer]. All rights reserved. The codes documented in this report are preliminary and upon industrial hire sales assistant review may be revised to meet current compliance requirements. Jesus oLbato DO 02/03/2022 10:01:13 AM This report has been signed electronically. Number of Addenda: 1 Note Initiated On: 02/03/2022 9:32 AM Addendum Number: 1 Addendum Date: 03/25/2022 6:16:26 AM MAC was used as sedation for this procedure. Jesus Lobato DO 03/25/2022 6:16:30 AM This report has been signed electronically.
--- NOTE | 2022-02-03 10:02 | OP.CCLET_ITS ---
03/25/2022 Saulo Pagan MD [address] [phone] Re : Colonoscopy procedure for Bela Sandoval Dear Dr. Pagan This procedure was performed on Thursday, February 03, 2022. My impressions and recommendations are as follows: Impressions : - Preparation of the colon was poor. - Decreased sphincter tone found on digital rectal exam. - Moderate diverticulosis in the recto-sigmoid colon, in the sigmoid colon and in the descending colon. There was no evidence of diverticular bleeding. - Congested mucosa in the rectum. - No specimens collected. Recommendations : - Discharge patient to home. - Resume previous diet. - Continue present medications. - Await pathology results. - Repeat colonoscopy in 5 years for surveillance. My findings are described in the full procedure note, which is enclosed. If I can be of further assistance, please feel free to contact me at . Sincerely, Jesus Lobato, 02/03/2022 10:01:13 AM This report has been signed electronically.
== END 2022-02-03 11:33 | disposition skilled nursing facility (03) ==
LOC: EN 07:46 → AC 07:46
PROVIDERS: PCP Family Medicine; Referring Provider Family Medicine; Visit Provider Internal Medicine Gastroenterology
PROC: 0DJD8ZZ Inspection of Lower Intestinal Tract, Via Natural or Artificial Opening Endoscopic (ICD-10-PCS; CPT 45378; principal; 2022-02-03 09:10)
DX: K57.30 Diverticulosis of large intestine without perforation or abscess without bleeding (principal); J44.9 Chronic obstructive pulmonary disease, unspecified; G40.909 Epilepsy, unspecified, not intractable, without status epilepticus; K62.6 Ulcer of anus and rectum; K25.4 Chronic or unspecified gastric ulcer with hemorrhage; K22.70 Barrett's esophagus without dysplasia; K44.9 Diaphragmatic hernia without obstruction or gangrene; K59.09 Other constipation; K29.50 Unspecified chronic gastritis without bleeding; I10 Essential (primary) hypertension; I25.2 Old myocardial infarction; E03.9 Hypothyroidism, unspecified; K21.9 Gastro-esophageal reflux disease without esophagitis; G47.33 Obstructive sleep apnea (adult) (pediatric); Z79.891 Long term (current) use of opiate analgesic; Z99.81 Dependence on supplemental oxygen; Z79.899 Other long term (current) drug therapy; Z87.891 Personal history of nicotine dependence
CPT/HCPCS: 45378; 43239; 43255; 88305; 88341; 88342; J7120; J2405

== ENCOUNTER 2022-03-20 00:01 | Emergency (ER) | payer MEDICARE, MEDICAID, SELFPAY ==
[2022-03-20] VITALS (8 sets, daily range): BP systolic 120–138; BP diastolic 67–77; PULSE 75–90; RESP 16–19; TEMP 36.3–36.8; O2SAT 95–99; BMI 29.0
--- NOTE | 2022-03-20 00:30 | EKG12_ITS ---
Test Reason : DYSRHYTHMIA Blood Pressure : / mmHG Vent. Rate : 086 BPM Atrial Rate : 086 BPM P-R Int : 176 ms QRS Dur : 110 ms QT Int : 400 ms P-R-T Axes : 049 -16 055 degrees QTc Int : 478 ms Normal sinus rhythm Incomplete left bundle branch block Borderline ECG Confirmed by ROLAN LEACH, LEONELA ([id number]), fan mail editor WESLY CASTAÑEDA ([id number]) on 03/22/2022 9:42:24 AM Referred By: RUDDY Confirmed By:LEONELA GONGORA MD
[2022-03-20 01:03] LABS: Absolute Lymphocyte Count 2.03 X10^3/uL (0.83-4.51); Absolute Neutrophil Count 3.9 X10^3/uL (2.0-7.7); Basophil# 0.04 X10^3/uL; Basophil% 0.6 % (0-1); Eosinophil# 0.51 X10^3/uL; Hematocrit 35.3 % (37-47); Hemoglobin 11.5 g/dL (12.0-15.0); Lymphocyte # 2.03 X10^3/ul (0.83-4.51); Mean Corp Hgb Conc 32.6 g/dL (32-36); Mean Corpuscular Hgb 29.9 pg (27.0-32.0); Mean Corpuscular Volume 91.7 fL (81-99); Monocyte# 0.76 X10^3/uL; Monocyte% 10.5 % (0-10); NRBC Flagged by Analyzer 0 % (0-5); Neutrophil # 3.88 X10^3/uL (2.7-7.7); Neutrophil % 53.5 % (47-70); Platelet Count 347 K/mm3 (150-450); RBC Distribution Width CV 13.7 % (11.6-14.6); RBC Distribution Width SD 46.4 fl (35.1-43.9); Red Blood Count 3.85 M/mm3 (4.2-5.4); White Blood Count 7.3 K/mm3 (4.4-11.0)
[2022-03-20 01:15] LABS: Anion Gap 6 (5-15); BUN 16 mg/dL (7-18); BUN/Creat Ratio 31.9 RATIO (10-20); Calcium,Total 8.8 mg/dL (8.5-10.1); Chloride 93 mmol/L (98-107); EST Glomerular Filtration Rate 128 mL/min (>60); Est Glom Filt Rate - Afr Amer 155 mL/min (>60); Estimated Creatinine Clearance 45.76 ml/min; Glucose 144 mg/dL (74-106); Potassium 3.7 mmol/L (3.5-5.1); Sodium Level 132 mmol/L (136-145)
[2022-03-20 01:25] LABS: Salicylate < 1.7 mg/dL (2.8-20.0)
[2022-03-20 01:26] LABS: Alcohol, Blood (Medical)-Serum < 3.0 mg/dL
[2022-03-20 01:48] LABS: Amphetamine Urine VISTA NEGATIVE (<1000 ng/mL); Barbiturate Urine VISTA POSITIVE (< 200 ng/mL); Benzodiazepine Urine VISTA POSITIVE (< 200 ng/mL); Cocaine Urine VISTA NEGATIVE (< 300 ng/mL); Ecstacy Urine VISTA NEGATIVE (< 500 ng/mL); Methadone Urine VISTA POSITIVE (< 300 ng/mL); PCP Urine VISTA NEGATIVE (< 25 ng/mL); THC Urine VISTA NEGATIVE (< 50 ng/mL); Vista UDS pH Range 6
--- NOTE | 2022-03-20 02:14 | ED.RN ---
Update given to batch roller operator Maris Cortez at [place].
[2022-03-20 03:30] LABS: Acetaminophen (Tylenol) Level < 2.0 ug/mL (10.0-30.0)
--- NOTE | 2022-03-20 03:46 | EDS_ITS ---
HPI History of Present Illness Chief Complaint: Suicidal Narrative Narrative: Patient is a 71-year-old female from the intermediate with history of seizure disorder and insomnia hypertension and GERD. She states that this evening she was stuck on the toilet for 40 minutes and no one was coming to get her and she became very frustrated. She states that she was talking to the staff and because of her frustration stated that if they would not help her or get her to the doctors which she feels she needs to see that she might as well just hurry up and . Because she said this they took it as a threat of suicide and brought the patient in for evaluation. Patient denies any suicidal or homicidal ideation and states that these words were said simply out of frustration. [facility] Medical History Acute gastritis Acute non-ST elevation myocardial infarction (NSTEMI) Anxiety Fitzgerald's esophagus Fitzgerald's esophagus determined by biopsy Cardiology follow-up encounter Chronic constipation Chronic hypoxemic respiratory failure COPD (chronic obstructive pulmonary disease) Debility Degenerative disc disease, lumbar Depression Diverticulosis DVT (deep venous thrombosis) Epilepsy Essential tremor Extrapyramidal disorder Gastric reflux Gastritis Grade III hemorrhoids Hemorrhoids History of echocardiogram History of edema History of stress test Hypertension Hyponatremia Hypotension Hypothyroidism Insomnia Left arm weakness Lower GI bleeding Obstructive sleep apnea On home oxygen therapy Pain, chronic Paresthesias Physical debility Polyneuropathy Rectal prolapse Restless leg syndrome Seizure disorder Sleep apnea Smoker Spinal stenosis Spinal stenosis of lumbar region Stercoral ulcer of rectum Stress bladder incontinence, female Suicide attempt Takotsubo cardiomyopathy Vitamin D deficiency Home Medications ropinirole 2 mg tablet 2 mg PO QHS legs 08/08/19 [History Last Taken 04/06/21] fluticasone furoate 100 mcg-vilanterol 25 mcg/dose inhalation powder 2 puff inhalation DAILY COPD 05/13/20 [History Last Taken 04/06/21] sennosides 8.6 mg-docusate sodium 50 mg tablet (Senexon-S) 2 tab PO BID stool softener 05/13/20 [History Last Taken 04/06/21] oxcarbazepine 600 mg tablet 600 mg PO BID seizures #60 tabs 10/13/20 [Rx Last Taken 04/06/21] phenobarbital 32.4 mg tablet 32.4 mg PO BID seizures #60 tabs 10/13/20 [Rx Last Taken 04/06/21] cholecalciferol (vitamin D3) 1,250 mcg (50,000 unit) capsule 1,250 mcg PO WE supplement 10/20/20 [History Last Taken 04/01/21] multivitamin 1 tab PO 1200 supplement 10/20/20 [History Last Taken 04/06/21] methadone 10 mg tablet 10 mg PO TID chronic pain 5 days #15 tabs 10/25/20 [Rx Last Taken 04/07/21 06:00] nitroglycerin 0.4 mg sublingual tablet 0.4 mg sublingual Q5M PRN CHEST PAIN #30 tabs 01/21/21 [Rx Last Taken Unknown] psyllium husk (aspartame) 3.4 gram oral powder packet (Metamucil Fiber Singles) 1 packet PO TID #0 ea 01/21/21 [Rx Last Taken 04/07/21 06:00] temazepam 30 mg capsule 30 mg PO QHS PRN Sleep #0 caps 01/21/21 [Rx Last Taken 04/05/21] atorvastatin 40 mg tablet 40 mg PO QHS CHOLESTEROL 04/07/21 [History Last Taken 04/06/21] brimonidine 0.2 % eye drops 1 drp EACH EYE BID GLAUCOMA 04/07/21 [History Last Taken 04/06/21] levothyroxine 25 mcg tablet 25 mcg PO DAILY THYROID 04/07/21 [History Last Taken 04/06/21] polyethylene glycol 3350 17 gram oral powder packet 17 g PO DAILY CONSTIPATION 04/07/21 [History Last Taken 04/06/21] pantoprazole 40 mg tablet,delayed release 40 mg PO BID #60 tabs 04/10/21 [Rx Last Taken Unknown] potassium chloride 20 mEq tablet,extended release(part/cryst) 20 meq PO DAILY supplement #0 tabs 04/18/21 [Rx Last Taken 04/06/21] umeclidinium 62.5 mcg/actuation blister powder for inhalation (Incruse Ellipta) 1 puff inhalation DAILY #0 ea 04/18/21 [Rx Last Taken Unknown] lactulose 20 gram/30 mL oral solution 20 g (30 mL) PO BID #1,200 mL 04/21/21 [Rx Last Taken Unknown] benztropine 1 mg tablet 1 mg PO QNOON #30 tabs 08/06/21 [Rx Last Taken Unknown] benztropine 2 mg tablet 2 mg PO QAM AND QHS tremor 08/06/21 [History Last Taken Unknown] bisacodyl 10 mg rectal suppository 10 mg [place] DAILY PRN Constipation 08/06/21 [History Last Taken Unknown] latanoprost 0.005 % eye drops 1 drp ophthalmic (eye) QPM 08/06/21 [History Last Taken Unknown] magnesium hydroxide 400 mg/5 mL oral suspension (Milk of Magnesia) 30 ml PO DAILY PRN GI UPSET 08/06/21 [History Last Taken Unknown] sucralfate 100 mg/mL oral suspension (Carafate) 10 ml PO BID #1,000 mL 09/29/21 [Rx Last Taken Unknown] duloxetine 30 mg capsule,delayed release sprinkle 30 mg PO DAILY 10/27/21 [History Last Taken Unknown] ferrous sulfate 325 mg (65 mg iron) tablet (FeroSul) 325 mg PO BID IRON 10/27/21 [History Last Taken Unknown] hydrocortisone 2.5 % topical cream 1 applic topical DAILY PRN Skin Cleansing 10/27/21 [History Last Taken Unknown] peg [id number] 1 %-0.2 %-0.2 % eye drops (Artificial Tears ([id number])) 1 drp ophthalmic (eye) Q8-10H PRN EYES 10/27/21 [History Last Taken Unknown] midodrine 10 mg tablet 10 mg PO TID #90 tabs 01/04/22 [Rx Last Taken Unknown] Allergy/AdvReac Type Severity Reaction Status Date / Time codeine Allergy Mild HIVES Verified 02/03/22 08:55 corn Allergy Hives Verified 02/03/22 08:55 Penicillins Allergy Anaphylaxis Verified 02/03/22 08:55 Family History Mother Diabetes Heart disease Hypertension CAD (coronary artery disease) CVA (cerebral vascular accident) Thyroid disorder Father Colon cancer Surgical History (Updated 02/02/22 @ 09:11 by Frances Duke) History of bilateral carpal tunnel release History of bilateral cataract extraction History of blepharoplasty History of cystoscopy History of esophagogastroduodenoscopy (EGD) (~03/07/19) History of left heart catheterization (01/16/21) History of right hip replacement History of right salpingo-oophorectomy Hx of colonoscopy S/P appendectomy S/P laparoscopic cholecystectomy Status post ORIF of fracture of ankle Social History household members: none housing: intermediate number of children: 1 pets and animals: Yes (cat) pets and animals: cat(s) Smoking Status: Former smoker Tobacco: How many years used: 50 alcohol intake: never substance use type: does not use well-balanced diet: rarely or never caffeine: No do you feel safe at home: Yes ROS ROS ED Constitutional Constitutional ED: Denies chills or fever(s) ENT ENT ED: Denies sore throat Cardiovascular Cardiovascular: Denies chest pain Respiratory/Chest Respiratory/Chest: Denies cough or dyspnea Gastrointestinal Gastrointestinal: Reports constipation; Denies abdominal pain, diarrhea, nausea or vomiting Genitourinary Genitourinary ED: Denies dysuria Musculoskeletal Musculoskeletal: Denies myalgias Integumentary Denies rash Neurologic Neurologic: Denies headache(s) Psychiatric Psychiatric: Denies suicidal ideation or suicidal thoughts Hematologic/Lymphatic Hematologic/Lymphatic: Denies easy bleeding or easy bruising EXAM Physical Exam Const Vital Signs: 03/20/22 00:02 03/20/22 01:06 03/20/22 02:00 Temperature 97.3 F L Temperature Source Temporal Pulse Rate 90 Respiratory Rate 16 18 18 Blood Pressure 138/77 H Blood Pressure Mean 97 Pulse Ox 95 Oxygen Delivery Method Room Air Room Air Room Air Positive well nourished and well developed General Appearance ED: well developed HEENT Reports moist mucous membranes Eyes PERRL and EOMs intact bilaterally Neck supple Resp normal respiratory effort and clear to auscultation bilaterally Cardio regular rate and regular rhythm GI normal to inspection, nondistended, normoactive bowel sounds, non-tender and non-distended Auscultation: hypoactive bowel sounds Palpation: soft Extremity normal to inspection Neuro oriented x3 and CN's II-XII intact bilaterally Sensorium / Orientation: alert Psych mental status grossly normal Skin no rashes or lesions noted MDM MDM MDM Narrative Medical decision making narrative: Patient presented to the ER with stable vitals. She reported that she said these threats of dying out of frustration and upon arrival has no homicidal or suicidal ideation. She does state that approximately 2 years ago she did attempt to harm her self but has no thoughts of that at this time and denies taking any illicit substances. She reported this was all just a misunderstanding and I do agree with her but based on her previous history of previous suicide attempt I did elect to perform a basic medical screening exam. This revealed no acute findings. Crisis center evaluated the patient and they agree that this was misunderstandings and her words were set out of frustration and therefore she is otherwise safe for returning to her intermediate. Lab Data Attestation: I reviewed the patient's lab results. Labs: Laboratory Results - last 24 hr 03/20/22 03/20/22 03/20/22 00:10 00:10 00:10 WBC 7.3 RBC 3.85 L Hgb 11.5 L Hct 35.3 L MCV 91.7 MCH 29.9 MCHC 32.6 RDW Std Deviation 46.4 H RDW Coeff of Jordin 13.7 Plt Count 347 MPV 9.0 Immature Gran % (Auto) 0.400 Neut % (Auto) 53.5 Lymph % (Auto) 28.0 Solano % (Auto) 10.5 H Eos % (Auto) 7.0 H Baso % (Auto) 0.6 Absolute Neuts (auto) 3.9 Absolute Lymphs (auto) 2.03 Nucleated RBC % 0 Sodium 132 L Potassium 3.7 Chloride 93 L Carbon Dioxide 33.0 H Anion Gap 6 BUN 16 Creatinine 0.50 L Estim Creat Clear Calc 45.76 Est GFR (MDRD) Af Amer 155 Est GFR (MDRD) Non-Af 128 BUN/Creatinine Ratio 31.9 H Glucose 144 H Calcium 8.8 Salicylates < 1.7 L Urine Opiates Screen Urine Methadone Screen Acetaminophen < 2.0 L Ur Barbiturates Screen Ur Phencyclidine Scrn Ur Amphetamines Screen MDMA (Ecstasy) Screen U Benzodiazepines Scrn Urine Cocaine Screen U Cannabinoids Screen Ur Drug Screen Comment Ethyl Alcohol < 3.0 03/20/22 01:04 WBC RBC Hgb Hct MCV MCH MCHC RDW Std Deviation RDW Coeff of Jordin Plt Count MPV Immature Gran % (Auto) Neut % (Auto) Lymph % (Auto) Solano % (Auto) Eos % (Auto) Baso % (Auto) Absolute Neuts (auto) Absolute Lymphs (auto) Nucleated RBC % Sodium Potassium Chloride Carbon Dioxide Anion Gap BUN Creatinine Estim Creat Clear Calc Est GFR (MDRD) Af Amer Est GFR (MDRD) Non-Af BUN/Creatinine Ratio Glucose Calcium Salicylates Urine Opiates Screen NEGATIVE Urine Methadone Screen POSITIVE H Acetaminophen Ur Barbiturates Screen POSITIVE H Ur Phencyclidine Scrn NEGATIVE Ur Amphetamines Screen NEGATIVE MDMA (Ecstasy) Screen NEGATIVE U Benzodiazepines Scrn POSITIVE H Urine Cocaine Screen NEGATIVE U Cannabinoids Screen NEGATIVE Ur Drug Screen Comment Ethyl Alcohol Discharge Plan Triage Chief Complaint: Suicidal ED Provider: Samson Slater Dx/Rx/DC Orders Clinical Impression: Mood disorder, Hypertension, Chronic constipation Instructions: How to Control Your Temper, ED Depression Prescriptions: No Action sennosides-docusate sodium [Senexon-S] 8.6-50 mg tablet 2 tab PO BID fluticasone furoate-vilanterol 100-25 mcg/dose blister with device 2 puff INHALATION DAILY oxcarbazepine 600 mg tablet 600 mg PO BID Qty: 60 3RF phenobarbital 32.4 mg tablet 32.4 mg PO BID Qty: 60 3RF lactulose 20 gram/30 mL solution 20 g PO BID Qty: 1200 0RF bisacodyl 10 mg suppository 10 mg [place] DAILY PRN (Reason: Constipation) latanoprost 0.005 % drops 1 drp ophthalmic (eye) QPM magnesium hydroxide [Milk of Magnesia] 400 mg/5 mL suspension 30 ml PO DAILY PRN (Reason: GI UPSET) benztropine 1 mg tablet 1 mg PO QNOON Qty: 30 0RF benztropine 2 mg tablet 2 mg PO QAM AND QHS Artificial Tears([id number]) 1-0.2-0.2 % drops 1 drp ophthalmic (eye) Q8-10H PRN (Reason: EYES) duloxetine 30 mg capsule, delayed rel sprinkle 30 mg PO DAILY hydrocortisone 2.5 % cream 1 applic topical DAILY PRN (Reason: Skin Cleansing) ropinirole 2 MG tablet 2 mg PO QHS multivitamin Tablet 1 tab PO 1200 cholecalciferol (vitamin D3) 1,250 mcg (50,000 unit) capsule 1,250 mcg PO WE methadone 10 mg tablet 10 mg PO TID 5 Days Qty: 15 0RF nitroglycerin 0.4 mg Tablet, Sublingual 0.4 mg sublingual Q5M PRN (Reason: CHEST PAIN) Qty: 30 0RF Metamucil Fiber Singles 3.4 gram Powder In Packet 1 packet PO TID Qty: 0 0RF Rx Instructions: OTC temazepam 30 mg Capsule 30 mg PO QHS PRN (Reason: Sleep) Qty: 0 0RF Rx Instructions: Hold for sedation/lethargy levothyroxine 25 mcg Tablet 25 mcg PO DAILY brimonidine 0.2 % Drops 1 drp EACH EYE BID atorvastatin 40 mg tablet 40 mg PO QHS polyethylene glycol 3350 17 gram powder in packet 17 g PO DAILY Rx Instructions: OTC pantoprazole 40 mg tablet,delayed release (DR/EC) 40 mg PO BID Qty: 60 1RF ferrous sulfate [FeroSul] 325 mg (65 mg iron) tablet 325 mg PO BID potassium chloride 20 MEQ tablet 20 meq PO DAILY Qty: 0 0RF Incruse Ellipta 62.5 mcg/actuation Blister With Device 1 puff inhalation DAILY Qty: 0 0RF sucralfate [Carafate] 100 mg/mL suspension 10 ml PO BID Qty: 1000 0RF midodrine 10 mg tablet 10 mg PO TID Qty: 90 0RF Rx Instructions: HOLD for SBP>130 or diastolic BP >90. Do not give last dose after 6pm. Primary Care Provider: Saulo Pagan Referrals: Saulo Pagan MD [Primary Care Provider] - Disposition Disposition: Home, Self Care
--- NOTE | 2022-03-20 03:56 | ED.RN ---
Update given to Maris Cortez. Pt report given to Maris as well. Transport to arrive at [facility] around 0630.
--- NOTE | 2022-03-20 04:15 | ED.RN ---
patient being safety planned back to [facility] per crisis. sitter d/c'd at this time.
== END 2022-03-20 06:32 | disposition home or self-care (01) ==
PROVIDERS: Emergency Provider Emergency Medicine; PCP Family Medicine; Visit Provider Emergency Medicine
DX: F32.A Depression, unspecified (principal); J44.9 Chronic obstructive pulmonary disease, unspecified; G40.909 Epilepsy, unspecified, not intractable, without status epilepticus; I10 Essential (primary) hypertension; I25.2 Old myocardial infarction; K59.09 Other constipation; Z79.899 Other long term (current) drug therapy; Z91.51 Personal history of suicidal behavior; Z87.891 Personal history of nicotine dependence
CPT/HCPCS: 80048; 80307; 80329; 82077; 85025; 87811; 93005; 99285; A4216; G0480

== ENCOUNTER 2022-12-08 10:33 | Day surgery (SDC) | payer MEDICARE, MEDICAID, SELFPAY ==
[2022-12-08 10:59] VITALS: BP 118/68; PULSE 100; RESP 18; TEMP 37.2; O2SAT 95; BMI 25.0
--- NOTE | 2022-12-08 12:15 | EGD_PTH ---
PATIENT: XANDER RAMIREZ LOC: EN U#:[id number] AGE/SX: 72/F ROOM: RE12/08/[address]: Dr. Jesus Lobato DO : 1950 BED: DIS: 12/08/2022 SPEC #: [id number] RECD: 12/08/22 13:23 STATUS: DWAYNE ROBERTH #: [id number] DANNY: 12/08/22 12:[address]: Jesus Lobato DEPT: SURGICAL PATHOLOGY RECD BY: Veronica Moya ENTERED: 12/09/22 08:40 SP TYPE: EGD BIOPSY OT DR: Dr. Saulo Pagan MD Tissues: Gastric mucous membrane Procedures: Surgery Specimen Level IV HEADER OPERATION: EGD ([facility]) with biopsies PRE-OP DIAGNOSIS: Fitzgerald?s esophagus, dysphagia, GERD, gastric ulcer, anemia TISSUE SUBMITTED: Gastric body MICROSCOPIC DIAGNOSIS Gastric body, biopsy: Chronic gastritis. See comment. AM:ethan 12/10/2022 COMMENT The results of immunohistochemistry for Helicobacter pylori will be reported separately ([id number]). MICROSCOPIC DESCRIPTION Slides are reviewed. GROSS DESCRIPTION Received in fixative is one container labeled with the patient's name and designated gastric body. The specimen consists of multiple irregular fragments of light johnson soft tissue that in aggregate measure 0.6 x 0.3 x 0.1 cm. The specimen is totally submitted in one cassette. / AM:ethan 12/09/2022 TC:3 CPT: 30724
--- NOTE | 2022-12-08 12:15 | IMM_PTH ---
PATIENT: XANDER RAMIREZ LOC: EN U#:[id number] AGE/SX: 72/F ROOM: RE12/08/[address]: Dr. Jesus Lobato DO : 1950 BED: DIS: 12/08/2022 SPEC #: [id number] RECD: 12/09/22 09:05 STATUS: DWAYNE REMary #: [id number] DANNY: 12/08/22 12:[address]: Jesus Lobato DEPT: IMMUNOHISTOCHEMISTRY RECD BY: Vanessa Cabrera ENTERED: 12/09/22 09:06 SP TYPE: IMMUNO OTHR DR: Dr. Saulo Pagan MD Tissues: Stomach, NOS Procedures: H Pylori (initial) PHYSICIAN & INSTITUTION [place] [id number] SPECIMEN INFORMATION: Tissue Source: Gastric body Clinical Info: Fitzgerald?s esophagus, dysphagia, GERD, gastric ulcer Specimen Number: [id number] CPT code: 53974 METHODOLOGY: Deparaffinized sections of prefer/formalin-fixed tissue or PAP/DQ stained slides are incubated with monoclonal/polyclonal antibodies/oligonucleotide probes. Localization is made via biotin free immunoperoxidase method. Appropriate controls are performed and reacted as expected. Results on target cell population are indicated in the following table: RESULTS: ANTIBODY / CLONE RESULT H Pylori (polyclonal) negative These tests were developed and their performance characteristics determined by [facility]. They may not have been cleared or approved by the U.S. Food and Drug Administration. The FDA has determined that such clearance or approval is not necessary. The above immunohistochemical/dualISH markers are ordered and reviewed by the Pathologist. INTERPRETATION: Gastric body, biopsy: Negative for Helicobacter pylori organisms. AM:ethan 12/10/2022
[2022-12-08] MEDS: Lactated Ringers 1,000 ML 15 ML IV (12:19)
--- NOTE | 2022-12-08 12:54 | HP.PCM_ITS ---
History and Physical Date of Admission: 12/08/22 72 F who presents to the office today for f/u. She notes bread is sticking retirement down her esophagus. She takes pantoprazole 40 mg BID. She has GERD< a large hiatal hernia, Fitzgerald's esophagus. Denies heartburn or acid reflux. No nausea or vomiting. No abdominal pain. Her last visit with us was 10/29/21 for chronic constipation, stercoral ulcer, Fitzgerald's esophagus. Dr Lobato did EGD and colonoscopy on 02/03/22--large hiatal hernia, 8 mm oozing gastric ulcer treated with heater probe, +Fitzgerald's/negative dysplasia, multiple diverticula, congested mucosa in the rectum. Dr Lobato recommended repeat EGD in 1 yr and repeat colonoscopy in 5 yrs. 09/09/2022 hgb 11.0 Pt reports alternating stools, says can have diarrhea or constipation. The aide that accompanies her reports that she had a normal BM before today's appt. No melena or hematochezia. On methadone for chronic pain. She is on daily miralax, lactulose bid, and psyllium husk fiber. PRN meds for bowels: bisacodyl suppository, mineral oil enema, milk of magnesia. ROS Const Constitutional: No fatigue ENT ENT: Positive for difficulty swallowing Cardio Cardiology: Positive for leg pain with exertion Gastro GI: Positive for change in bowel habits, constipation and difficulty swallowing; No abdominal pain, belching, bloating, change in stool character, coffee ground emesis, cramping, diarrhea, heartburn, feeling full early, excessive flatus, incontinent of stools, Vomiting blood/hematemesis, Blood in stool, loose stools, Black,tarry stools, nausea/dyspepsia, pain with swallowing, vomiting or other Musc Musculoskeletal: Positive for back pain, joint swelling, muscle cramps, muscle weakness, stiffness, Arthritis, leg pain at night and leg pain with exertion; No joint pain Skin Skin: No yellowing of the eye or itchy eyes Psych Psychiatric: Positive for anxiety, Positive for depression, Positive for Behavioral Problems, Positive for obsessions/compulsions and Positive for Temper Tantrums Endo Endocrine: No fatigue Aller/Imm Allergy/Immunologic: No itchy eyes Faraz/Lymp Hematologic/Lymphatic: No easy bleeding or easy bruising Exam Const General: cooperative, comfortable and no acute distress Orientation: alert and awake Other: in wheelchair HENMT Teeth and gingiva: edentulous Quality Reporting Tobacco Screening ([facility]) Smoking Status: Former smoker Assessment and Plan Assessment and Plan (1) Dysphagia: ?Status:?Acute ?Plan: 72 yr old [place] resident with dysphagia, GERD, hiatal hernia, gastric ulcer, Fitzgerald's esophagus, anemia. Will schedule her for EGD, with office f/u 1-2 wks later. Continue pantoprazole 40 mg BID. (2) Fitzgerald's esophagus: ?Status:?Chronic ?Plan: see above (3) GERD (gastroesophageal reflux disease): ?Status:?Chronic ?Plan: see above (4) Gastric ulcer: ?Status:?Acute ?Plan: see above (5) Anemia: ?Status:?Acute ?Plan: see above I have examined the patient and the H&P has been reviewed. There are no clinical changes since date of exam.
[2022-12-08 13:16] VITALS: BP 117/64; BP 118/68; PULSE 78; RESP 18; TEMP 36.6; O2SAT 97
--- NOTE | 2022-12-08 13:19 | OP.EGD_ITS ---
Patient Name: Bela Sandoval Procedure Date: 12/08/2022 12:56 PM Date of : 1950 Age: 72 Procedure: Upper GI endoscopy Indications: Dysphagia Providers: Jesus Lobato DO Medicines: Monitored Anesthesia Care Patient Profile: This is a 72 year old female. Refer to note in patient chart for documentation of history and physical. Patient has symptoms of dysphagia with both liquids and solids. Complications: No immediate complications. Procedure: Pre-Anesthesia Assessment: - Prior to the procedure, a History and Physical was performed, and patient medications and allergies were reviewed. The patient is competent. The risks and benefits of the procedure and the sedation options and risks were discussed with the patient. All questions were answered and informed consent was obtained. Patient identification and proposed procedure were verified by the physician. Mental Status Examination: normal. Prophylactic Antibiotics: The patient does not require prophylactic antibiotics. Prior Anticoagulants: The patient has taken no previous anticoagulant or antiplatelet agents. After reviewing the risks and benefits, the patient was deemed in satisfactory condition to undergo the procedure. The anesthesia plan was to use monitored anesthesia care (MAC). Immediately prior to administration of medications, the patient was re-assessed for adequacy to receive sedatives. The heart rate, respiratory rate, oxygen saturations, blood pressure, adequacy of pulmonary ventilation, and response to care were monitored throughout the procedure. The physical status of the patient was re-assessed after the procedure. After obtaining informed consent, the endoscope was passed under direct vision. Throughout the procedure, the patient's blood pressure, pulse, and oxygen saturations were monitored continuously. The gastroscope was introduced through the mouth, and advanced to the second part of duodenum. The upper GI endoscopy was accomplished without difficulty. The patient tolerated the procedure well. Scope In: 1:05:19 PM Scope Out: 1:10:21 PM Total Procedure Duration Time 0 hours 5 minutes 2 seconds Findings: The examined esophagus was grossly tortuous. One benign-appearing, intrinsic stenosis was found 21 to 23 cm from the incisors. This stenosis was moderately severe and. The stenosis was traversed. A guidewire was placed and the scope was withdrawn. Dilation was performed with a Savary dilator with no resistance at 42 Fr. The dilation site was examined and showed moderate improvement in luminal narrowing. Estimated blood loss was minimal. A large hiatal hernia was present. Severe gastric antral vascular ectasia was present in the gastric antrum. Diffuse moderate inflammation characterized by congestion (edema), erosions and erythema was found in the entire examined stomach. Biopsies were taken with a cold forceps for histology. Verification of patient identification for the specimen was done. Estimated blood loss was minimal. Patchy granular mucosa was found in the duodenal bulb. Impression: - Tortuous esophagus. - Benign-appearing esophageal stenosis. Dilated. - Large hiatal hernia. - Gastric antral vascular ectasia. - Chronic gastritis. Biopsied. - Normal first portion of the duodenum. Recommendation: - Discharge patient to home. - Resume previous diet. - Continue present medications. - Await pathology results. Procedure Code(s): --- Professional --- 67898, Esophagogastroduodenoscopy, flexible, transoral; with insertion of guide wire followed by passage of dilator(s) through esophagus over guide wire 28272, 59,51, Esophagogastroduodenoscopy, flexible, transoral; with biopsy, single or multiple CPT copyright 2017 [employer] [employer]. All rights reserved. The codes documented in this report are preliminary and upon information coder review may be revised to meet current compliance requirements. Jesus Lobato DO 12/08/2022 1:19:22 PM This report has been signed electronically. Number of Addenda: 0 Note Initiated On: 12/08/2022 12:56 PM
--- NOTE | 2022-12-08 13:20 | OP.CCLET_ITS ---
12/08/2022 Saulo Pagan MD [address] [id number] Re : Upper GI endoscopy procedure for Bela Sandoval Dear Dr. Pagan This procedure was performed on Thursday, December 08, 2022. My impressions and recommendations are as follows: Impressions : - Tortuous esophagus. - Benign-appearing esophageal stenosis. Dilated. - Large hiatal hernia. - Gastric antral vascular ectasia. - Chronic gastritis. Biopsied. - Normal first portion of the duodenum. Recommendations : - Discharge patient to home. - Resume previous diet. - Continue present medications. - Await pathology results. My findings are described in the full procedure note, which is enclosed. If I can be of further assistance, please feel free to contact me at . Sincerely, Jesus Lobato, 12/08/2022 1:19:22 PM This report has been signed electronically.
[2022-12-08 13:25] VITALS: BP 102/67; BP 118/68; PULSE 83; RESP 16; O2SAT 94
[2022-12-08 13:35] VITALS: BP 118/68; BP 87/73; PULSE 85; RESP 16; O2SAT 92
[2022-12-08 13:40] VITALS: BP 106/54; BP 118/68; PULSE 83; RESP 16; TEMP 37.7; O2SAT 92
[2022-12-08 13:57] VITALS: BP 118/68
== END 2022-12-08 14:14 | disposition skilled nursing facility (03) ==
LOC: EN 10:37 → AC 10:38
PROVIDERS: PCP Family Medicine; Referring Provider Family Medicine; Visit Provider Internal Medicine Gastroenterology
PROC: 0DJ08ZZ Inspection of Upper Intestinal Tract, Via Natural or Artificial Opening Endoscopic (ICD-10-PCS; CPT 43235; principal; 2022-12-08 12:10)
DX: K22.2 Esophageal obstruction (principal); G40.909 Epilepsy, unspecified, not intractable, without status epilepticus; K31.819 Angiodysplasia of stomach and duodenum without bleeding; K44.9 Diaphragmatic hernia without obstruction or gangrene; K29.50 Unspecified chronic gastritis without bleeding; K22.70 Barrett's esophagus without dysplasia; K59.09 Other constipation; K21.9 Gastro-esophageal reflux disease without esophagitis; K25.0 Acute gastric ulcer with hemorrhage; I10 Essential (primary) hypertension; I25.2 Old myocardial infarction; E03.9 Hypothyroidism, unspecified; D64.9 Anemia, unspecified; G47.33 Obstructive sleep apnea (adult) (pediatric); F32.A Depression, unspecified; G89.29 Other chronic pain; Z91.199 Patient's noncompliance with other medical treatment and regimen due to unspecified reason; Z99.81 Dependence on supplemental oxygen; Z79.899 Other long term (current) drug therapy; Z87.891 Personal history of nicotine dependence
CPT/HCPCS: 43248; 43239; 88305; 88342; J7120; J2405

== ENCOUNTER 2023-03-04 10:11 | Emergency (ER) | payer MEDICARE, MEDICAID, SELFPAY ==
[2023-03-04 10:12] VITALS: BP 130/101; PULSE 81; RESP 18; TEMP 36.2; O2SAT 97; BMI 28.8
--- NOTE | 2023-03-04 10:34 | RAD_ITS ---
STUDY: X-RAY - LEFT FOOT CLINICAL: Female, 72 years old. Injury/Pain TECHNIQUE: 3 view(s) of the foot. COMPARISON: None. FINDINGS: There is demineralization of the rear and midfoot bones. Normal visualized subtalar, talonavicular, calcaneocuboid, tarsal and tarsometatarsal articulations. There is demineralization of the metatarsi. Nondisplaced healing fracture of the head of the third metatarsal. There is degenerative arthrosis of the metatarsophalangeal joint of the hallux . Normal tibial and fibular sesamoid bones. Normal interphalangeal joint of the great toe. Normal phalanges of the great toe. Normal second through fifth metatarsophalangeal joints. Normal interphalangeal joints and phalanges of the lesser toes. Diffuse soft tissue swelling. RAD/Foot min 3 Views IMPRESSION: Healing nondisplaced fracture of the distal portion of the third metatarsal. Soft tissue swelling. Electronically Signed: Isaias Munroe MD at 12:13 EDT ,
--- NOTE | 2023-03-04 10:50 | ED.VIS.LOWEX ---
HPI History of Present Illness Chief Complaint: Lower Extremity Injury Informant: patient and SNF Narrative Narrative: Patient is a 72-year-old female with extensive medical history including COPD (wears nighttime oxygen), bipolar disorder, chronic pain syndrome (on methadone), hypertension, restless leg syndrome, hyperlipidemia and hypothyroidism presenting for left ankle fracture. Per nursing report ([facility] patient's lost her balance but was caught and lowered to the ground 2 days ago. Initially she was complaining of left hip pain. They did an x-ray which was negative for fracture. She then started complaining of increased left ankle pain and she had an outpatient x-ray yesterday which showed a closed acute fracture of the medial malleolus with intra-articular extension and diffuse circumferential soft tissue swelling. Other nursing facility contacted [facility] however her insurance is out of network for them and decision was made to bring her to the emergency room for further management of this ankle fracture. Patient is a poor historian and states she does not member why she fell. Nursing reports it was very much mechanical fall. She is complaining of significant pain in her ankle. She is tearful. She did receive 25 mcg of intranasal fentanyl via EMS in route. 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 Cardiology follow-up encounter Chronic constipation Chronic hypoxemic respiratory failure COPD (chronic obstructive pulmonary disease) Debility Degenerative disc disease, lumbar Depression Diverticulosis DVT (deep venous thrombosis) Epilepsy Essential tremor Extrapyramidal disorder Gastric reflux Gastritis Grade III hemorrhoids Hemorrhoids History of echocardiogram History of edema History of stress test Hypertension Hyponatremia Hypotension Hypothyroidism Insomnia Left arm weakness Lives in halfway Lower GI bleeding Obstructive sleep apnea On home oxygen therapy Pain, chronic Paresthesias Physical debility Polyneuropathy Rectal prolapse Restless leg syndrome Seizure disorder Sleep apnea Smoker Spinal stenosis Spinal stenosis of lumbar region Stercoral ulcer of rectum Stress bladder incontinence, female Suicide attempt Takotsubo cardiomyopathy Vitamin D deficiency Home Medications ropinirole 2 mg tablet 3 mg PO QHS legs 08/08/19 [History Last Taken 03/03/23] fluticasone furoate 100 mcg-vilanterol 25 mcg/dose inhalation powder 2 puff inhalation DAILY COPD 05/13/20 [History Last Taken 03/04/23] oxcarbazepine 600 mg tablet 600 mg PO BID seizures #60 tabs 10/13/20 [Rx Last Taken 03/04/23] phenobarbital 32.4 mg tablet 32.4 mg PO BID seizures #60 tabs 10/13/20 [Rx Last Taken 03/04/23] cholecalciferol (vitamin D3) 1,250 mcg (50,000 unit) capsule 1,250 mcg PO WE supplement 10/20/20 [History Last Taken 03/02/23] multivitamin 1 tab PO DAILY supplement 10/20/20 [History Last Taken 03/04/23] methadone 10 mg tablet 10 mg PO TID chronic pain 5 days #15 tabs 10/25/20 [Rx Last Taken 03/04/23] nitroglycerin 0.4 mg sublingual tablet 0.4 mg sublingual Q5M PRN CHEST PAIN #30 tabs 01/21/21 [Rx Last Taken Unknown] atorvastatin 40 mg tablet 40 mg PO QHS CHOLESTEROL 04/07/21 [History Last Taken 03/03/23] levothyroxine 25 mcg tablet 25 mcg PO DAILY THYROID 04/07/21 [History Last Taken 03/04/23] polyethylene glycol 3350 17 gram oral powder packet 17 g PO DAILY CONSTIPATION 04/07/21 [History Last Taken 03/04/23] pantoprazole 40 mg tablet,delayed release 40 mg PO BID #60 tabs 04/10/21 [Rx Last Taken 03/04/23] potassium chloride 20 mEq tablet,extended release(part/cryst) 20 meq PO DAILY supplement #0 tabs 04/18/21 [Rx Last Taken 03/04/23] benztropine 2 mg tablet 2 mg PO TID tremor 08/06/21 [History Last Taken 03/04/23] bisacodyl 10 mg rectal suppository 10 mg NC DAILY PRN Constipation 08/06/21 [History Last Taken Unknown] magnesium hydroxide 400 mg/5 mL oral suspension (Milk of Magnesia) 30 ml PO DAILY PRN GI UPSET 08/06/21 [History Last Taken Unknown] sucralfate 100 mg/mL oral suspension (Carafate) 10 ml PO BID #1,000 mL 09/29/21 [Rx Last Taken 03/04/23] duloxetine 30 mg capsule,delayed release sprinkle 20 mg PO BID 10/27/21 [History Last Taken 03/04/23] ferrous sulfate 325 mg (65 mg iron) tablet (FeroSul) 325 mg PO BID IRON 10/27/21 [History Last Taken 03/04/23] hydrocortisone 2.5 % topical cream 1 applic topical DAILY PRN Skin Cleansing 10/27/21 [History Last Taken Unknown] midodrine 10 mg tablet 10 mg PO TID #90 tabs 01/04/22 [Rx Last Taken 03/04/23] risperidone 0.5 mg tablet (Risperdal) 0.5 mg PO QHS 04/12/22 [History Last Taken 03/03/23] lactulose 20 gram/30 mL oral solution 30 ml PO BID 12/03/22 [History Last Taken 03/04/23] netarsudil 0.02 % eye drops (Rhopressa) 1 drp EACH EYE QPM 12/03/22 [History Last Taken 03/03/23] psyllium husk (aspartame) 3.4 gram oral powder packet (Metamucil Fiber Singles) 1 packet PO BID 12/03/22 [History Last Taken 03/04/23] sertraline 100 mg tablet (Zoloft) 100 mg PO QHS 12/03/22 [History Last Taken 03/03/23] temazepam 30 mg capsule 15 mg PO QHS PRN Sleep 12/03/22 [History Last Taken 03/01/23] acetaminophen 500 mg capsule 1,000 mg PO Q8H PRN pain 03/04/23 [History Last Taken 03/04/23] bimatoprost 0.01 % eye drops (Lumigan) 1 drp EACH EYE QPM 03/04/23 [History Last Taken 03/03/23] carboxymethylcellulose sodium 0.5 % eye drops (Refresh Tears) 1 drp EACH EYE BID 03/04/23 [History Last Taken 03/04/23] dicyclomine 10 mg capsule 10 mg PO BID DIVERTICULOSIS 03/04/23 [History Last Taken 03/04/23] lifitegrast 5 % eye drops in a dropperette (Xiidra) 1 drp EACH EYE BID 03/04/23 [History Last Taken 03/04/23] umeclidinium 62.5 mcg/actuation blister powder for inhalation (Incruse Ellipta) 1 inh inhalation DAILY 03/04/23 [History Last Taken 03/04/23] Allergy/AdvReac Type Severity Reaction Status Date / Time codeine Allergy Mild HIVES Verified 03/04/23 10:16 corn Allergy Hives Verified 03/04/23 10:16 Penicillins Allergy Anaphylaxis Verified 03/04/23 10:16 Family History Mother Diabetes Heart disease Hypertension CAD (coronary artery disease) CVA (cerebral vascular accident) Thyroid disorder Father Colon cancer Surgical History History of bilateral carpal tunnel release History of bilateral cataract extraction History of blepharoplasty History of cystoscopy History of esophagogastroduodenoscopy (EGD) (~03/07/19) History of left heart catheterization (01/16/21) History of right hip replacement History of right salpingo-oophorectomy Hx of colonoscopy S/P appendectomy S/P laparoscopic cholecystectomy Status post ORIF of fracture of ankle Social History household members: none housing: halfway number of children: 1 pets and animals: Yes (cat) pets and animals: cat(s) Smoking Status: Former smoker Tobacco: How many years used: 50 alcohol intake: never substance use type: does not use well-balanced diet: rarely or never caffeine: No do you feel safe at home: Yes ROS ROS ED Constitutional Constitutional ED: Denies chills or fever(s) Eyes Eyes: Denies change in vision Cardiovascular Cardiovascular: Denies chest pain Respiratory/Chest Respiratory/Chest: Denies cough Gastrointestinal Gastrointestinal: Denies abdominal pain, nausea or vomiting Musculoskeletal Musculoskeletal: Reports arthralgias and other Details: left ankle pain Integumentary Denies Abrasions or rash Neurologic Neurologic: Denies paresthesias or weakness Psychiatric Psychiatric: Reports anxiety Hematologic/Lymphatic Hematologic/Lymphatic: Denies easy bleeding or easy bruising EXAM Physical Exam Const Vital Signs: 03/04/23 10:12 03/04/23 11:13 03/04/23 12:26 Temperature 97.2 F L Temperature Source Temporal Pulse Rate 81 77 71 Respiratory Rate 18 Blood Pressure 130/101 H 145/62 H 121/61 H Blood Pressure Mean 110 89 Pulse Ox 97 93 93 Oxygen Delivery Method Room Air Room Air Positive well nourished and well developed General Appearance ED: well developed and NAD HEENT Reports moist mucous membranes HEENT Narrative: Normal tympanic membranes bilaterally. No signs of any facial trauma. Edentulous. normocephalic and atraumatic Neck full ROM and supple Thyroid: Negative for tender Chest Wall inspection of chest normal and palpation of chest normal Resp normal respiratory effort and clear to auscultation bilaterally Cardio regular rate, regular rhythm and no murmurs Cardio Narrative: Equal distal pulses Extremity Extremity Narrative: Tenderness over the hips or proximal legs. Patient has edema and significant pain of the left ankle. No obvious deformity. Neuro oriented x3 Sensorium / Orientation: alert Motor Exam: general weakness Psych Psych Narrative: Tearful Skin no wounds Rashes: no rashes MDM MDM MDM Narrative Medical decision making narrative: Patient evaluated for left ankle injury and previously diagnosed left ankle fracture at nursing facility. She does have tenderness and is given IV morphine for pain control. Patient is chronically on methadone for pain control. As nursing staff from her facility is able to give a good report and denies any fall, mental status change or any other concerns I do not think she requires an further metabolic or trauma work-up. I do have access to the images so an x-ray of the ankle and foot is performed here. This is reviewed by myself as well as radiology. X-ray shows a nondisplaced oblique fracture of the medial malleolus with overlying soft tissue swelling however the joint spaces appear to be preserved. There is a healing nondisplaced fracture of the distal portion of the third metatarsal as well and soft tissue swelling on the foot. Case is discussed with podiatry on-call, Dr. Victoria. He recommends a cam boot, weightbearing as tolerated and outpatient follow-up. Likely she would not be a surgical candidate. He does review the images as well. I did speak with the patient's PCP at her facility, Dr. Pagan. He will handle pain control as needed. He is informed of this plan of care. Patient discharged back to facility in stable condition Nursing staff contacted patient's son and updated him on our plan of care. Radiography Diagnostic Testing: Clinical Impression(s) from Imaging Studies Foot X-Ray 03/04/23 10:34 IMPRESSION: Healing nondisplaced fracture of the distal portion of the third metatarsal. Soft tissue swelling. Electronically Signed: Isaias Munroe MD at 12:13 EDT , Ankle X-Ray 03/04/23 11:15 IMPRESSION: Nondisplaced oblique fracture of the medial malleolus with overlying soft tissue swelling. 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 Discharge Plan Triage Chief Complaint: Lower Extremity Injury ED Provider: Soo Carroll Dx/Rx/DC Orders Clinical Impression: Fracture of ankle, left, closed Instructions: ED Ankle Fracture Prescriptions: No Action fluticasone furoate-vilanterol 100-25 mcg/dose blister with device 2 puff INHALATION DAILY oxcarbazepine 600 mg tablet 600 mg PO BID Qty: 60 3RF phenobarbital 32.4 mg tablet 32.4 mg PO BID Qty: 60 3RF bisacodyl 10 mg suppository 10 mg NC DAILY PRN (Reason: Constipation) magnesium hydroxide [Milk of Magnesia] 400 mg/5 mL suspension 30 ml PO DAILY PRN (Reason: GI UPSET) benztropine 2 mg tablet 2 mg PO TID duloxetine 30 mg capsule, delayed rel sprinkle 20 mg PO BID hydrocortisone 2.5 % cream 1 applic topical DAILY PRN (Reason: Skin Cleansing) risperidone [Risperdal] 0.5 mg tablet 0.5 mg PO QHS ropinirole 2 MG tablet 3 mg PO QHS multivitamin Tablet 1 tab PO DAILY cholecalciferol (vitamin D3) 1,250 mcg (50,000 unit) capsule 1,250 mcg PO WE methadone 10 mg tablet 10 mg PO TID 5 Days Qty: 15 0RF nitroglycerin 0.4 mg Tablet, Sublingual 0.4 mg sublingual Q5M PRN (Reason: CHEST PAIN) Qty: 30 0RF levothyroxine 25 mcg Tablet 25 mcg PO DAILY atorvastatin 40 mg tablet 40 mg PO QHS polyethylene glycol 3350 17 gram powder in packet 17 g PO DAILY Rx Instructions: OTC pantoprazole 40 mg tablet,delayed release (DR/EC) 40 mg PO BID Qty: 60 1RF ferrous sulfate [FeroSul] 325 mg (65 mg iron) tablet 325 mg PO BID potassium chloride 20 MEQ tablet 20 meq PO DAILY Qty: 0 0RF sucralfate [Carafate] 100 mg/mL suspension 10 ml PO BID Qty: 1000 0RF sertraline [Zoloft] 100 mg Tablet 100 mg PO QHS Rhopressa 0.02 % Drops 1 drp EACH EYE QPM temazepam 30 mg capsule 15 mg PO QHS PRN (Reason: Sleep) Rx Instructions: Hold for sedation/lethargy Metamucil Fiber Singles 3.4 gram powder in packet 1 packet PO BID Rx Instructions: OTC lactulose 20 gram/30 mL solution 30 ml PO BID Incruse Ellipta 62.5 mcg/actuation blister with device 1 inh inhalation DAILY Lumigan 0.01 % drops 1 drp EACH EYE QPM dicyclomine 10 mg capsule 10 mg PO BID carboxymethylcellulose sodium [Refresh Tears] 0.5 % drops 1 drp EACH EYE BID Xiidra 5 % dropperette 1 drp EACH EYE BID Rx Instructions: administer approximately 12 hours apart acetaminophen 500 mg capsule 1,000 mg PO Q8H PRN (Reason: pain) midodrine 10 mg tablet 10 mg PO TID Qty: 90 0RF Rx Instructions: HOLD for SBP>130 or diastolic BP >90. Do not give last dose after 6pm. Primary Care Provider: Saulo Pagan Referrals: Wayne Victoria DPM [Med Staff - Active Staff] - 1 Week Saulo Pagan MD [Primary Care Provider] - Activity Restrictions/Additional Instructions: Ms. Sandoval can follow-up with podiatry. She has been given information on her discharge paperwork. She is to wear the cam boot at all times but can take it off for showers/baths as needed. She can put weight on it as needed but if it is too uncomfortable she can use a wheelchair. Dr. Pagan will adjust pain control as needed. In the intrim continue Tylenol, ice and elevation. Disposition Disposition: Half-Way Facility Discharge Location: [facility] Discharge Date/Time: 03/04/23 14:28
--- NOTE | 2023-03-04 11:08 | ED.RN ---
New order obtained from Dr. Carroll for IV route of Morphine, same dose as initially ordered. Patient had IV in place therefore IM route cancelled.
--- NOTE | 2023-03-04 11:10 | CM.ED ---
Social Work SW performed chart review; LW, HCPOA and GPOA documents on file. Patient's LW and HCPOA documents on file as of 2018 and general POA on file as of 2021. Patient's HCPOA is patient's son, Yaakov and alternate is Ceci Sandoval. Kimberly Cooper CRIMINAL ANALYST, EMMA
[2023-03-04] MEDS: Morphine 4 MG/ML Syringe IV (11:12)
[2023-03-04 11:13] VITALS: BP 145/62; PULSE 77; O2SAT 93
--- NOTE | 2023-03-04 11:15 | RAD_ITS ---
STUDY: X-RAY - LEFT ANKLE REASON FOR EXAM: Female, 72 years old. Left ankle pain following a fall. TECHNIQUE: 3 view(s) of the ankle. COMPARISON: Comparison is made with prior study dated November 24, 2020. FINDINGS: Osteopenia. Nondisplaced oblique fracture of the medial malleolus. Normal tibiotalar articulation and ankle mortise. Normal visualized talus and calcaneus. The visualized subtalar, talonavicular, calcaneocuboid and tarsal articulations are normal. Soft tissue swelling. RAD/Ankle min 3 Views IMPRESSION: Nondisplaced oblique fracture of the medial malleolus with overlying soft tissue swelling. Electronically Signed: Isaias Munroe MD at 12:11 EDT ,
[2023-03-04 12:26] VITALS: BP 121/61; PULSE 71; O2SAT 93
--- NOTE | 2023-03-04 12:28 | ED.RN ---
Updated Yaakov, son, and called report to the [facility] regarding disposition.
[2023-03-04] MEDS: Morphine 4 MG/ML Syringe IM (14:11)
== END 2023-03-04 14:28 | disposition skilled nursing facility (03) ==
PROVIDERS: Emergency Provider Emergency Medicine; PCP Family Medicine; Visit Provider Emergency Medicine
DX: S82.892A Other fracture of left lower leg, initial encounter for closed fracture (principal); J44.9 Chronic obstructive pulmonary disease, unspecified; F31.9 Bipolar disorder, unspecified; E03.9 Hypothyroidism, unspecified; G25.81 Restless legs syndrome; E78.5 Hyperlipidemia, unspecified; G89.4 Chronic pain syndrome; G47.30 Sleep apnea, unspecified; I25.2 Old myocardial infarction; Z79.899 Other long term (current) drug therapy; Z99.81 Dependence on supplemental oxygen; Z87.891 Personal history of nicotine dependence; X58.XXXA Exposure to other specified factors, initial encounter; Z86.718 Personal history of other venous thrombosis and embolism
CPT/HCPCS: 73610; 73630; 96372; 96374; 99284; A4216

== ENCOUNTER → 2023-04-01 | Outpatient (CLI) | payer MEDICARE, MEDICAID, SELFPAY ==
[2023-04-05 22:07] LABS: Trileptal-Oxcarbazepine 22 ug/mL (10-35)
== END | disposition home or self-care (01) ==
LOC: MTLAB 12:57
PROVIDERS: PCP Family Medicine; Referring Provider Psychiatry & Neurology Neurology; Visit Provider Psychiatry & Neurology Neurology
DX: G40.909 Epilepsy, unspecified, not intractable, without status epilepticus (principal)
CPT/HCPCS: 80184; 82542

== ENCOUNTER 2023-04-04 14:15 | Outpatient (CLI) | payer MEDICARE, MEDICAID, SELFPAY ==
[2023-04-04 17:34] LABS: Hematocrit 38.3 % (37-47); Hemoglobin 11.3 g/dL (12.0-15.0); Mean Corp Hgb Conc 29.5 g/dL (32-36); Mean Corpuscular Hgb 27.5 pg (27.0-32.0); Mean Corpuscular Volume 93.2 fL (81-99); Platelet Count 346 K/mm3 (150-450); RBC Distribution Width CV 13.8 % (11.6-14.6); RBC Distribution Width SD 47.1 fl (35.1-43.9); Red Blood Count 4.11 M/mm3 (4.2-5.4); White Blood Count 8.5 K/mm3 (4.4-11.0)
[2023-04-04 18:16] LABS: ALB/GLOB Ratio 0.5 RATIO (0.9-2.4); AST(SGOT) 46 U/L (15-37); Alanine Aminotransfer ALT/SGPT 96 U/L (13-56); Albumin, Serum 2.3 g/dL (3.2-5.0); Alkaline Phosphatase 132 U/L (45-117); Anion Gap 5 (5-15); BUN 14 mg/dL (7-18); BUN/Creat Ratio 19.4 RATIO (10-20); Chloride 98 mmol/L (98-107); Creatinine, Serum 0.72 mg/dL (0.55-1.02); EST Glomerular Filtration Rate 84 mL/min (>60); Est Glom Filt Rate - Afr Amer 102 mL/min (>60); Globulin 5.1 g/dL (2.2-4.2); Glucose 236 mg/dL (74-106); Potassium 3.7 mmol/L (3.5-5.1); Protein, Total 7.4 g/dL (6.4-8.2); Sodium Level 133 mmol/L (136-145); T4 Free Direct 0.81 ng/dL (0.76-1.46); Thyroid Stim Hormone (TSH) 1.34 uIU/mL (0.358-3.74)
== END 2023-04-04 23:59 | disposition home or self-care (01) ==
PROVIDERS: PCP Family Medicine; Referring Provider Psychiatry & Neurology Neurology; Visit Provider Psychiatry & Neurology Neurology
DX: G43.909 Migraine, unspecified, not intractable, without status migrainosus (principal); E03.9 Hypothyroidism, unspecified; E55.9 Vitamin D deficiency, unspecified
CPT/HCPCS: 36415; 80053; 82140; 82652; 84439; 84443; 85027

== ENCOUNTER 2023-08-19 14:38 | Inpatient (IN) | payer MEDICARE, MEDICAID, SELFPAY ==
[2023-08-19] VITALS (11 sets, daily range): BP systolic 97–128; BP diastolic 60–103; PULSE 117–149; RESP 15–27; TEMP 37.4–39.8; O2SAT 94–99; BMI 23.6; BMI 22.8
--- NOTE | 2023-08-19 14:54 | EKG12_ITS ---
Test Reason : TACHYCARDIA Blood Pressure : / mmHG Vent. Rate : 148 BPM Atrial Rate : 148 BPM P-R Int : 130 ms QRS Dur : 092 ms QT Int : 338 ms P-R-T Axes : 060 -39 100 degrees QTc Int : 530 ms Critical Test Result: High HR Sinus tachycardia Left axis deviation Low voltage QRS Possible Anterolateral infarct , age undetermined Abnormal ECG Confirmed by BLUE LEACH, GO ([id number]), purchase request editor PADMAJA SIMS ([id number]) on 08/22/2023 9:07:26 AM Referred By: Confirmed By:SAMI MCARTHUR MD
--- NOTE | 2023-08-19 14:58 | EX.ED.DYSGE1 ---
HPI <JUAN Miller - Last Filed: 08/19/23 19:26> History of Present Illness Chief Complaint: Mental Status Change Narrative Narrative: 72-year-old female [facility] for altered mental status. She has history of HTN, HLD, COPD on chronic 3 L, hypothyroidism. The report given was that her unresponsiveness occurred about an hour ago. She responds to sternal rub. 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 Cardiology follow-up encounter Chronic constipation Chronic hypoxemic respiratory failure COPD (chronic obstructive pulmonary disease) Debility Degenerative disc disease, lumbar Depression Diverticulosis DVT (deep venous thrombosis) Epilepsy Essential tremor Extrapyramidal disorder Gastric reflux Gastritis Grade III hemorrhoids Hemorrhoids History of echocardiogram History of edema History of stress test Hypertension Hyponatremia Hypotension Hypothyroidism Insomnia Left arm weakness Lives in shelter Lower GI bleeding Obstructive sleep apnea On home oxygen therapy Pain, chronic Paresthesias Physical debility Polyneuropathy Rectal prolapse Restless leg syndrome Seizure disorder Sleep apnea Smoker Spinal stenosis Spinal stenosis of lumbar region Stercoral ulcer of rectum Stress bladder incontinence, female Suicide attempt Takotsubo cardiomyopathy Vitamin D deficiency Home Medications fluticasone furoate 100 mcg-vilanterol 25 mcg/dose inhalation powder 2 puff inhalation DAILY COPD 05/13/20 [History Last Taken 03/04/23] oxcarbazepine 600 mg tablet 600 mg PO BID seizures #60 tabs 10/13/20 [Rx Last Taken 03/04/23] phenobarbital 32.4 mg tablet 32.4 mg PO BID seizures #60 tabs 10/13/20 [Rx Last Taken 03/04/23] cholecalciferol (vitamin D3) 1,250 mcg (50,000 unit) capsule 1,250 mcg PO WE supplement 10/20/20 [History Last Taken 03/02/23] multivitamin 1 tab PO DAILY supplement 10/20/20 [History Last Taken 03/04/23] methadone 10 mg tablet 10 mg PO TID chronic pain 5 days #15 tabs 10/25/20 [Rx Last Taken 03/04/23] nitroglycerin 0.4 mg sublingual tablet 0.4 mg sublingual Q5M PRN CHEST PAIN #30 tabs 01/21/21 [Rx Last Taken Unknown] atorvastatin 40 mg tablet 40 mg PO QHS CHOLESTEROL 04/07/21 [History Last Taken 03/03/23] levothyroxine 25 mcg tablet 25 mcg PO DAILY THYROID 04/07/21 [History Last Taken 03/04/23] pantoprazole 40 mg tablet,delayed release 40 mg PO BID #60 tabs 04/10/21 [Rx Last Taken 03/04/23] benztropine 2 mg tablet 2 mg PO TID tremor 08/06/21 [History Last Taken 03/04/23] bisacodyl 10 mg rectal suppository 10 mg IN DAILY PRN Constipation 08/06/21 [History Last Taken Unknown] magnesium hydroxide 400 mg/5 mL oral suspension (Milk of Magnesia) 30 ml PO DAILY PRN GI UPSET 08/06/21 [History Last Taken Unknown] duloxetine 30 mg capsule,delayed release sprinkle 20 mg PO BID 10/27/21 [History Last Taken 03/04/23] ferrous sulfate 325 mg (65 mg iron) tablet (FeroSul) 325 mg PO BID IRON 10/27/21 [History Last Taken 03/04/23] hydrocortisone 2.5 % topical cream 1 applic topical DAILY PRN Skin Cleansing 10/27/21 [History Last Taken Unknown] midodrine 10 mg tablet 10 mg PO TID #90 tabs 01/04/22 [Rx Last Taken 03/04/23] risperidone 0.5 mg tablet (Risperdal) 0.5 mg PO TID 04/12/22 [History Last Taken 03/03/23] lactulose 20 gram/30 mL oral solution 30 ml PO BID 12/03/22 [History Last Taken 03/04/23] netarsudil 0.02 % eye drops (Rhopressa) 1 drp EACH EYE QPM 12/03/22 [History Last Taken 03/03/23] psyllium husk (aspartame) 3.4 gram oral powder packet (Metamucil Fiber Singles) 1 packet PO BID 12/03/22 [History Last Taken 03/04/23] sertraline 100 mg tablet (Zoloft) 125 mg PO DAILY 12/03/22 [History Last Taken 03/03/23] acetaminophen 500 mg capsule 1,000 mg PO Q8H PRN pain 03/04/23 [History Last Taken 03/04/23] bimatoprost 0.01 % eye drops (Lumigan) 1 drp EACH EYE QPM 03/04/23 [History Last Taken 03/03/23] carboxymethylcellulose sodium 0.5 % eye drops (Refresh Tears) 1 drp EACH EYE BID 03/04/23 [History Last Taken 03/04/23] dicyclomine 10 mg capsule 10 mg PO BID DIVERTICULOSIS 03/04/23 [History Last Taken 03/04/23] lifitegrast 5 % eye drops in a dropperette (Xiidra) 1 drp EACH EYE BID 03/04/23 [History Last Taken 03/04/23] ropinirole 2 mg tablet 2 mg PO QHS legs 03/22/23 [History Last Taken Unknown] polyethylene glycol 3350 17 gram/dose oral powder (ClearLax) 17 g PO DAILY 08/19/23 [History Last Taken Unknown] potassium chloride 20 mEq tablet,extended release(part/cryst) 40 meq PO BID supplement 08/19/23 [History Last Taken Unknown] sucralfate 100 mg/mL oral suspension (Carafate) 1 g PO BID 08/19/23 [History Last Taken Unknown] umeclidinium 62.5 mcg/actuation blister powder for inhalation (Incruse Ellipta) 1 inh inhalation DAILY 08/19/23 [History Last Taken Unknown] Allergy/AdvReac Type Severity Reaction Status Date / Time codeine Allergy Mild HIVES Verified 08/19/23 14:40 corn Allergy Hives Verified 08/19/23 14:40 Penicillins Allergy Anaphylaxis Verified 08/19/23 14:40 Family History Mother Diabetes Heart disease Hypertension CAD (coronary artery disease) CVA (cerebral vascular accident) Thyroid disorder Father Colon cancer Surgical History History of bilateral carpal tunnel release History of bilateral cataract extraction History of blepharoplasty History of cystoscopy History of esophagogastroduodenoscopy (EGD) (~03/07/19) History of left heart catheterization (01/16/21) History of right hip replacement History of right salpingo-oophorectomy Hx of colonoscopy S/P appendectomy S/P laparoscopic cholecystectomy Status post ORIF of fracture of ankle Social History household members: none housing: shelter number of children: 1 pets and animals: Yes (cat) pets and animals: cat(s) Smoking Status: Former smoker Tobacco: How many years used: 50 alcohol intake: never substance use type: does not use well-balanced diet: rarely or never caffeine: No do you feel safe at home: Yes ROS <JUAN Miller - Last Filed: 08/19/23 19:26> ROS ED ROS Narrative Unable to obtain due to altered mental status EXAM <JUAN Miller - Last Filed: 08/19/23 19:26> Physical Exam Narrative Exam Narrative: CONST: Patient lying in bed with eyes closed. EYES: Normal inspection. PERRL. ENT: Normal inspection, dry mucous membranes. NECK: Normal inspection. RESP: No respiratory distress, CTAB. CVS: Tachycardic with regular rhythm, no murmur, no gallop. ABD: Abdomen soft and moderately distended, no guarding or rebound. SKIN: Color normal, no rash, warm, dry, intact. EXTREMITIES: Normal appearance, no pedal edema. NEURO: Lying in bed with eyes closed in no distress. Groans to sternal rub. Moves her head and groans when nurse placing IV. PSYCH: Normal affect. Const Vital Signs: 08/19/23 14:40 08/19/23 14:45 08/19/23 15:15 Temperature 100 F H 100 F H Temperature Source Temporal Temporal Pulse Rate 149 H 148 H Respiratory Rate 23 H 27 H Blood Pressure 128/76 H 128/76 H Blood Pressure Mean 93 93 Pulse Ox 97 95 Oxygen Delivery Method Nasal Cannula Nasal Cannula Nasal Cannula Oxygen Flow Rate (L/min) 3 3 3 08/19/23 15:30 08/19/23 15:44 08/19/23 15:44 Temperature 103.6 F H 103.6 F H Temperature Source Core Core Pulse Rate 144 H 139 H 138 H Respiratory Rate 21 H 23 H 23 H Blood Pressure 118/63 107/83 H 107/83 H Blood Pressure Mean 81 91 91 Pulse Ox 98 99 99 Oxygen Delivery Method Room Air Nasal Cannula Room Air Oxygen Flow Rate (L/min) 3 08/19/23 16:00 08/19/23 16:48 08/19/23 17:00 Temperature 102.7 F H 101.8 F H 101.6 F H Temperature Source Core Core Core Pulse Rate 135 H 123 H 119 H Respiratory Rate 20 H 20 H 20 H Blood Pressure 107/74 107/66 111/68 Blood Pressure Mean 85 79 82 Pulse Ox 99 97 97 Oxygen Delivery Method Room Air Room Air Room Air Oxygen Flow Rate (L/min) 08/19/23 18:00 08/19/23 18:17 Temperature 100.6 F H Temperature Source Core Pulse Rate 117 H 119 H Respiratory Rate 17 15 Blood Pressure 117/71 111/60 Blood Pressure Mean 86 77 Pulse Ox 95 97 Oxygen Delivery Method Room Air Room Air Oxygen Flow Rate (L/min) <Dr. Mainor Melendez MD - Last Filed: 08/19/23 16:37> Physical Exam Const Vital Signs: 08/19/23 14:40 08/19/23 14:45 08/19/23 15:15 Temperature 100 F H 100 F H Temperature Source Temporal Temporal Pulse Rate 149 H 148 H Respiratory Rate 23 H 27 H Blood Pressure 128/76 H 128/76 H Blood Pressure Mean 93 93 Pulse Ox 97 95 Oxygen Delivery Method Nasal Cannula Nasal Cannula Nasal Cannula Oxygen Flow Rate (L/min) 3 3 3 08/19/23 15:30 08/19/23 15:44 08/19/23 15:44 Temperature 103.6 F H 103.6 F H Temperature Source Core Core Pulse Rate 144 H 139 H 138 H Respiratory Rate 21 H 23 H 23 H Blood Pressure 118/63 107/83 H 107/83 H Blood Pressure Mean 81 91 91 Pulse Ox 98 99 99 Oxygen Delivery Method Room Air Nasal Cannula Room Air Oxygen Flow Rate (L/min) 3 08/19/23 16:00 08/19/23 16:48 08/19/23 17:00 Temperature 102.7 F H 101.8 F H 101.6 F H Temperature Source Core Core Core Pulse Rate 135 H 123 H 119 H Respiratory Rate 20 H 20 H 20 H Blood Pressure 107/74 107/66 111/68 Blood Pressure Mean 85 79 82 Pulse Ox 99 97 97 Oxygen Delivery Method Room Air Room Air Room Air Oxygen Flow Rate (L/min) 08/19/23 18:00 08/19/23 18:17 Temperature 100.6 F H Temperature Source Core Pulse Rate 117 H 119 H Respiratory Rate 17 15 Blood Pressure 117/71 111/60 Blood Pressure Mean 86 77 Pulse Ox 95 97 Oxygen Delivery Method Room Air Room Air Oxygen Flow Rate (L/min) [facility] <JUAN Miller - Last Filed: 08/19/23 19:26> [facility] Narrative Medical decision making narrative: Differential: Pneumonia, UTI, viral illness Patient was brought in for altered mental status. She is nonverbal at this time and cannot give history. BP 120/76, sinus tachycardia in 140s, respiratory rate around 26, initial temp 100 ?F. She chronically wears 3 L O2 and is 95%. Exam notable for dry mucous membranes, tachycardia with no murmur, and bilateral pedal edema. Neurologically she is unresponsive but protecting her airway. Sepsis protocol was initiated with IV fluids and rectal Tylenol. WBC is 23.1, lactic 1.3. Hemoglobin of 10.8 is around baseline. Sodium is 147, potassium 5.2, BUN 40, creatinine 1.24 (most recently 0.72). She looks very dehydrated likely the cause of her HUGO. Glucose is 245 with normal anion gap. CXR shows no acute process and COVID/flu/RSV swab is negative. Urinalysis is also negative for infection. Patient was reexamined and rolled over. There is no sign of cellulitis or sacral wounds. She does have abdominal distention and with no source of infection found CT scans of the brain and abdomen/pelvis were ordered. CT brain unremarkable. CT abdomen showed findings concerning for large bowel obstruction secondary to constipation and questionable perforation. Also notes obstructive uropathy from colonic constipation. I consulted general surgery and Dr. Dunlap evaluated the patient. He performed a rectal exam and removed stool. The stool is very soft and her abdomen is not peritonitic. He thinks this is more so constipation and not perforation. He recommended enemas. He states the CT abdomen findings do not explain her fever or leukocytosis and recommended admission to medicine. Although patient's urinalysis is negative the urine that is draining from the placed Lewis catheter is cloudy. In discussion with the hospitalist we will treat as potential UTI. She had received Rocephin already. Patient admitted under the medical service. I called her son Yaakov to relay all results and answer questions. I have personally performed a face to face assessment of the patient and have reviewed the LOUISA Note. I performed a substantive portion of the visit including all aspects of the following. My sharp findings include: History is 72-year-old female decreased mental status. Sent in from shelter today for further evaluation. Decreased oral intake. Patient is unable to give me any history. She is nonverbal at this time. Per paperwork she has a history of COPD, bipolar and is DNR Comfort Care arrest. Exam is [72-year-old female vital signs so a pressure 120/76 heart rate 1 4806 sinus tachycardia on the monitor. Respirations 27 temperature of 100. 95% on 3 L. No hypoxia on 3 L. H EENT exam eyes closed. Very dry mucous membranes. Mouth open. Neck nontender. No lymphadenopathy. Lungs clear to auscultation bilaterally. Heart tachycardic rate about 145 no murmur. Chest wall and ribs nontender. Abdomen soft but distended. She does not react to palpation of her abdomen. Extremities nontender. She does not move her extremities at this time. Neurologically she is unresponsive. Nonverbal. Most likely secondary to acute delirium.] Medical Decision Making [72-year-old the fever mental status change and be treated for sepsis. IV fluids. Sepsis workup. Straight cath UA. Patient will need to be admitted.] Other additions or changes: [Repeat exam at 4:15 PM. We rolled the patient she did not have any significant sores on her back or decubiti. Given the high white count, fever of 103 no specific source or CT in her brain and also her abdomen and pelvis. We do not have a specific source for the fever. Her viral studies were also negative. She will be admitted or waiting for the CAT scans to be done read.] At 4:35 PM I attempted to call the son and also the son-in-law. I was unable to reach either. And neither phone would allow me to leave a message. Lab Data Labs: Laboratory Results - last 24 hr 08/19/23 08/19/23 14:58 15:20 WBC 23.1 H RBC 3.85 L Hgb 10.8 L Hct 36.7 L MCV 95.3 MCH 28.1 MCHC 29.4 L RDW Std Deviation 52.3 H RDW Coeff of Jordin 15.0 H Plt Count 548 H MPV 8.6 Immature Gran % (Auto) 1.000 H Neut % (Auto) 85.4 H Lymph % (Auto) 5.8 L [place] % (Auto) 7.2 Eos % (Auto) 0.3 Baso % (Auto) 0.3 Absolute Neuts (auto) 19.7 H Absolute Lymphs (auto) 1.34 Nucleated RBC % 0 Differential Comment SCANNED Diff Path Review October foll PT 17.7 H INR 1.5 APTT 46.2 H Sodium 147 H Potassium 5.2 H Chloride 119 H Carbon Dioxide 20.0 L Anion Gap 8 BUN 40 H Creatinine 1.24 H Estim Creat Clear Calc 36.36 Est GFR (MDRD) Af Amer 54 L Est GFR (MDRD) Non-Af 45 L BUN/Creatinine Ratio 32.3 H Glucose 245 H Lactic Acid 1.3 Calcium 8.4 L Total Bilirubin 0.60 AST 64 H ALT 25 Alkaline Phosphatase 121 H Total Protein 6.4 Albumin 1.9 L Globulin 4.5 H Albumin/Globulin Ratio 0.4 L Urine Color Yellow Urine Clarity Clear Urine pH 5.0 Ur Specific Tyro 1.015 Urine Protein 15 H Urine Glucose (UA) Normal Urine Ketones 5 H Urine Occult Blood 10 H Urine Nitrite Negative Urine Bilirubin 1 H Urine Urobilinogen 1 H Ur Leukocyte Esterase 25 H Urine RBC 0 SEEN Urine WBC 0-5 SEEN Ur Squamous Epith Cells 0 SEEN Urine Bacteria 0 SEEN Urine Mucus 0 SEEN Radiography Diagnostic Testing: Clinical Impression(s) from Imaging Studies Chest X-Ray 08/19/23 15:35 IMPRESSION: No acute abnormality is seen. Electronically Signed: Isaias Munroe MD at 15:58 EST , Abdomen/Pelvis CT 08/19/23 16:10 IMPRESSION: Findings concerning for large bowel obstruction secondary to constipation. There is also questionable pneumatosis intestinalis seen in the ascending colon. This is concerning for impending perforation. Recommend surgical consultation. Obstructive uropathy most likely secondary to external compression from colon. Electronically Signed: Dorian Castle MD at 18:13 EST , ADDENDUM: 08/19/23 1826 IMPRESSION: Findings concerning for large bowel obstruction secondary to constipation. There is also questionable pneumatosis intestinalis seen in the ascending colon. This is concerning for impending perforation. Recommend surgical consultation. Obstructive uropathy most likely secondary to external compression from colon. N.B. : The above Results were Read Back by Dorian Castle MD to Driss Ortiz DO, and understanding confirmed on 08/19/2023 18:19:20 (ET). Electronically Signed: Dorian Castle MD at 18:13 EST , Brain CT 08/19/23 16:10 IMPRESSION: No acute intracranial abnormality. Chronic involutional and ischemic changes of the brain. Electronically Signed: Dorian Castle MD at 16:45 EST , <Dr. Mainor Melendez MD - Last Filed: 08/19/23 16:37> [facility] Narrative Medical decision making narrative: Patient was brought in for altered mental status. She is nonverbal at this time and cannot give history. BP 120/76, sinus tachycardia in 140s, respiratory rate around 26, initial temp 100 ?F. She chronically wears 3 L O2 and is 95%. Exam notable for dry mucous membranes, tachycardia with no murmur, and bilateral pedal edema. Neurologically she is unresponsive but protecting her airway. Sepsis protocol was initiated with IV fluids and rectal Tylenol. WBC is 23.1, lactic 1.3. Hemoglobin of 10.8 is around baseline. Sodium is 147, potassium 5.2, BUN 40, creatinine 1.24 (most recently 0.72). She looks very dehydrated likely the cause of her HUGO. Glucose is 245 with normal anion gap. I have personally performed a face to face assessment of the patient and have reviewed the LOUISA Note. I performed a substantive portion of the visit including all aspects of the following. My sharp findings include: History is 72-year-old female decreased mental status. Sent in from shelter today for further evaluation. Decreased oral intake. Patient is unable to give me any history. She is nonverbal at this time. Per paperwork she has a history of COPD, bipolar and is DNR Comfort Care arrest. Exam is [72-year-old female vital signs so a pressure 120/76 heart rate 1 4806 sinus tachycardia on the monitor. Respirations 27 temperature of 100. 95% on 3 L. No hypoxia on 3 L. H EENT exam eyes closed. Very dry mucous membranes. Mouth open. Neck nontender. No lymphadenopathy. Lungs clear to auscultation bilaterally. Heart tachycardic rate about 145 no murmur. Chest wall and ribs nontender. Abdomen soft but distended. She does not react to palpation of her abdomen. Extremities nontender. She does not move her extremities at this time. Neurologically she is unresponsive. Nonverbal. Most likely secondary to acute delirium.] Medical Decision Making [72-year-old the fever mental status change and be treated for sepsis. IV fluids. Sepsis workup. Straight cath UA. Patient will need to be admitted.] Other additions or changes: [Repeat exam at 4:15 PM. We rolled the patient she did not have any significant sores on her back or decubiti. Given the high white count, fever of 103 no specific source or CT in her brain and also her abdomen and pelvis. We do not have a specific source for the fever. Her viral studies were also negative. She will be admitted or waiting for the CAT scans to be done read.] At 4:35 PM I attempted to call the son and also the son-in-law. I was unable to reach either. And neither phone would allow me to leave a message. History & Record Review Discussion w/independent historian: Unable to obtain Additional record(s) reviewed:: Prior inpatient record, Prior outpatient record, Prior ED visit and Prior labs Lab Data Attestation: I reviewed the patient's lab results. Lab results narrative: CBC shows no elevated white count 23.1. H&H of 10.8 and 36.7. She has a baseline anemia. Platelets 548. PT/INR 17 and 1.5. PTT 46. Sodium is 147. Potassium 5.2. Gap is 8. BUN of 40 creatinine 1.24 consistent with dehydration and acute kidney injury. Glucose 245. Liver enzymes unremarkable. Lactic acid 1.3. Chest x-ray shows no acute abnormality. EKGs as tachycardia. Urinalysis is normal. No white or red cells. No bacteria. No nitrites. Labs: Laboratory Results - last 24 hr 08/19/23 08/19/23 14:58 15:20 WBC 23.1 H RBC 3.85 L Hgb 10.8 L Hct 36.7 L MCV 95.3 MCH 28.1 MCHC 29.4 L RDW Std Deviation 52.3 H RDW Coeff of Jordin 15.0 H Plt Count 548 H MPV 8.6 Immature Gran % (Auto) 1.000 H Neut % (Auto) 85.4 H Lymph % (Auto) 5.8 L [place] % (Auto) 7.2 Eos % (Auto) 0.3 Baso % (Auto) 0.3 Absolute Neuts (auto) 19.7 H Absolute Lymphs (auto) 1.34 Nucleated RBC % 0 Differential Comment SCANNED Diff Path Review May foll PT 17.7 H INR 1.5 APTT 46.2 H Sodium 147 H Potassium 5.2 H Chloride 119 H Carbon Dioxide 20.0 L Anion Gap 8 BUN 40 H Creatinine 1.24 H Estim Creat Clear Calc 36.36 Est GFR (MDRD) Af Amer 54 L Est GFR (MDRD) Non-Af 45 L BUN/Creatinine Ratio 32.3 H Glucose 245 H Lactic Acid 1.3 Calcium 8.4 L Total Bilirubin 0.60 AST 64 H ALT 25 Alkaline Phosphatase 121 H Total Protein 6.4 Albumin 1.9 L Globulin 4.5 H Albumin/Globulin Ratio 0.4 L Urine Color Yellow Urine Clarity Clear Urine pH 5.0 Ur Specific Tyro 1.015 Urine Protein 15 H Urine Glucose (UA) Normal Urine Ketones 5 H Urine Occult Blood 10 H Urine Nitrite Negative Urine Bilirubin 1 H Urine Urobilinogen 1 H Ur Leukocyte Esterase 25 H Urine RBC 0 SEEN Urine WBC 0-5 SEEN Ur Squamous Epith Cells 0 SEEN Urine Bacteria 0 SEEN Urine Mucus 0 SEEN Radiography Chest X-Ray - ED: Read by ED Physician, Heart, Lungs, Mediastinum, Bony Structures, No Acute Disease and Chronic Changes Diagnostic Testing: Clinical Impression(s) from Imaging Studies Chest X-Ray 08/19/23 15:35 IMPRESSION: No acute abnormality is seen. Electronically Signed: Isaias Munroe MD at 15:58 EST , Abdomen/Pelvis CT 08/19/23 16:10 IMPRESSION: Findings concerning for large bowel obstruction secondary to constipation. There is also questionable pneumatosis intestinalis seen in the ascending colon. This is concerning for impending perforation. Recommend surgical consultation. Obstructive uropathy most likely secondary to external compression from colon. Electronically Signed: Dorian Castle MD at 18:13 EST , ADDENDUM: 08/19/23 1826 IMPRESSION: Findings concerning for large bowel obstruction secondary to constipation. There is also questionable pneumatosis intestinalis seen in the ascending colon. This is concerning for impending perforation. Recommend surgical consultation. Obstructive uropathy most likely secondary to external compression from colon. N.B. : The above Results were Read Back by Dorian Castle MD to Driss Ortiz DO, and understanding confirmed on 08/19/2023 18:19:20 (ET). Electronically Signed: Dorian Castle MD at 18:13 EST , Brain CT 08/19/23 16:10 IMPRESSION: No acute intracranial abnormality. Chronic involutional and ischemic changes of the brain. Electronically Signed: Dorian Castle MD at 16:45 EST , Chest x-ray, portable, single view shows no acute abnormality. Normal cardiac silhouette. Chronic changes. No infiltrate. No effusion. Interpreted by myself. Rhythm Strip Rhythm Strip: Sinus Tach Rate: 148 Ectopy: None EKG Initial EKG: Attestation: I personally reviewed and interpreted this EKG as follows: Interpretation: No Acute Injury Pattern and Sinus Tachycardia Comments: Acute sinus tachycardia rate 148. No acute signs of TN or ischemia. <Dr. Mainor Melendez MD - Last Filed: 08/19/23 16:37> Critical Care Time Critical Care Time: Yes Critical care time (excluding procedures): 30-74 minutes, Including time spent:, Discussing w/Patient &/or Family/Resource Manager, Discussing w/Consultants, Arranging Admission or Transfer and - (35 min) Discharge Plan Dx/Rx/DC Orders Clinical Impression: Acute dehydration, Altered level of consciousness, Sepsis, Acute kidney injury, Fever, Constipation Disposition Disposition: Acute Care [facility]
[2023-08-19 15:13] LABS: Absolute Lymphocyte Count 1.34 X10^3/uL (0.83-4.51); Absolute Neutrophil Count 19.7 X10^3/uL (2.0-7.7); Basophil# 0.07 X10^3/uL; Basophil% 0.3 % (0-1); Eosinophil# 0.06 X10^3/uL; Eosinophils% 0.3 % (0-5); Hematocrit 36.7 % (37-47); Hemoglobin 10.8 g/dL (12.0-15.0); Lymphocyte # 1.34 X10^3/ul (0.83-4.51); Lymphocyte % 5.8 % (19-41); Mean Corp Hgb Conc 29.4 g/dL (32-36); Mean Corpuscular Hgb 28.1 pg (27.0-32.0); Mean Corpuscular Volume 95.3 fL (81-99); Mean Platelet Vol. 8.6 fl (6.2-12.0); Monocyte# 1.67 X10^3/uL; Monocyte% 7.2 % (0-10); NRBC Flagged by Analyzer 0 % (0-5); Neutrophil # 19.71 X10^3/uL (2.7-7.7); Neutrophil % 85.4 % (47-70); POSITIVE DIFFERENTIAL YES; Platelet Count 548 K/mm3 (150-450); RBC Distribution Width SD 52.3 fl (35.1-43.9); Red Blood Count 3.85 M/mm3 (4.2-5.4); White Blood Count 23.1 K/mm3 (4.4-11.0)
[2023-08-19 15:14] LABS: Differential Indicated SCAN CRITERIA MET
[2023-08-19 15:22] LABS: International Normalized Ratio 1.5; Prothrombin Time (Protime)PT. 17.7 SECONDS (11.7-14.9)
[2023-08-19 15:23] LABS: Partial Thromboplast Time 46.2 Seconds (24.1-36.2)
[2023-08-19] MEDS: Acetaminophen 650 MG Suppository RC (15:23)
[2023-08-19] MEDS: 0.9% Normal Saline (1000mL) 1,000 ML 999 ML IV ×2 (15:23→16:48)
--- NOTE | 2023-08-19 15:35 | RAD_ITS ---
STUDY: X-RAY CHEST REASON FOR EXAM: Female, 72 years old. Fever TECHNIQUE: Single AP portable view of the chest. COMPARISON: Comparison is made with prior study dated March 23, 2021. FINDINGS: EKG electrodes are seen. Elevation of the left hemidiaphragm. Stable 2 cm x 2.3 cm bulla in the medial left upper lobe. There is no demonstrated pleural abnormality. Normal size heart. Normal mediastinum and denae. Normal visualized pulmonary arteries. There is atherosclerotic tortuosity of the aortic arch and descending thoracic aorta. Normal visualized thoracic spine. Normal visualized ribs, clavicles, and shoulders. Hiatal hernia. RAD/Chest 1 View (Portable) IMPRESSION: No acute abnormality is seen. Electronically Signed: Isaias Munroe MD at 15:58 EST ,
[2023-08-19 15:37] LABS: Differential Comment SCANNED
[2023-08-19 15:40] LABS: Bacteria 0 SEEN /hpf (None Seen); Mucous, Urine 0 SEEN /hpf (<or=2+); Red Blood Cells-Urine 0 SEEN /hpf (0-5); Squamous Epithelial Cells - UA 0 SEEN /hpf (5-10)
[2023-08-19 15:40] LABS: Lactic Acid 1.3 mmol/L (0.4-1.9)
[2023-08-19 15:45] LABS: ALB/GLOB Ratio 0.4 RATIO (0.9-2.4); AST(SGOT) 64 U/L (15-37); Alanine Aminotransfer ALT/SGPT 25 U/L (13-56); Albumin, Serum 1.9 g/dL (3.2-5.0); Alkaline Phosphatase 121 U/L (45-117); Anion Gap 8 (5-15); BUN 40 mg/dL (7-18); BUN/Creat Ratio 32.3 RATIO (10-20); Calcium,Total 8.4 mg/dL (8.5-10.1); Chloride 119 mmol/L (98-107); Creatinine, Serum 1.24 mg/dL (0.55-1.02); EST Glomerular Filtration Rate 45 mL/min (>60); Est Glom Filt Rate - Afr Amer 54 mL/min (>60); Estimated Creatinine Clearance 36.36 ml/min; Globulin 4.5 g/dL (2.2-4.2); Glucose 245 mg/dL (74-106); Potassium 5.2 mmol/L (3.5-5.1); Protein, Total 6.4 g/dL (6.4-8.2); Sodium Level 147 mmol/L (136-145)
[2023-08-19 15:49] LABS: Color, Urine Yellow (Yellow); Glucose, Dipstick Normal (Normal); Ketone-Dipstick 5 mg/dl (Negative); Leukocyte Esterase-Dipstick 25 /ul (Negative); Nitrite-Dipstick Negative (Negative); Occult Blood-Urine 10 /ul (Negative); Protein-Dipstick 15 mg/dl (Negative); Specific Gravity, Urine 1.015 (1.002-1.030); Urine Clarity Clear (Clear); Urine Urobilinogen 1 mg/dl (Normal)
[2023-08-19 16:02] LABS: Urine Bilirubin Dipstick 1 mg/dL (Negative)
[2023-08-19 16:09] LABS: White Blood Cells 0-5 SEEN /hpf (0-5)
--- NOTE | 2023-08-19 16:10 | CT_ITS ---
EXAMINATION : Head CT w/out contrast HISTORY : ALOC COMPARISON : None. TECHNIQUE : Multiple contiguous axial images were obtained from the skull base to the vertex without intravenous contrast. A radiation dose optimization technique was used for this scan. FINDINGS : There is no evidence for acute intracranial hemorrhage, mass effect, or midline shift. There is no extra-axial fluid collection. There are periventricular white matter changes consistent with chronic microvascular ischemic disease. There is sulcal widening and ventricular enlargement consistent with cerebral atrophy. There is normal danielson-white differentiation, without CT evidence of acute ischemia or infarct. The skull base and calvarium are unremarkable. The orbits are unremarkable. The paranasal sinuses are clear. The mastoid air cells are well-aerated. The soft tissues are unremarkable. CT/Brain/Head without Contrast IMPRESSION: No acute intracranial abnormality. Chronic involutional and ischemic changes of the brain. Electronically Signed: Dorian Castle MD at 16:45 EST ,
--- NOTE | 2023-08-19 16:10 | CT_ITS ---
We are attempting to reach an attending provider to discuss findings. An addendum with communication details will be sent when the communication is complete. INDICATION: fever EXAMINATION: CT Abdomen And Pelvis W/ Contrast Injection TECHNIQUE: Helically acquired images were obtained of the abdomen and pelvis after IV contrast. A radiation dose optimization technique was used for this scan. IV Contrast dosage and agent: IV 100mL [id number] Oral contrast: None. COMPARISON: None. FINDINGS: Visualized lung bases: Unremarkable Liver: Unremarkable Gallbladder: Surgically absent. Spleen: Unremarkable Pancreas: Unremarkable Adrenal Glands: Unremarkable Kidneys: Moderate bilateral hydroureteronephrosis. No obstructing stone or mass seen. Vasculature: Unremarkable GI Tract: Hiatal hernia. Nearly the entire colon is markedly dilated and filled with stool. The sigmoid colon and rectum measure up to 10.2 cm in diameter. There is questionable air seen within the wall of the ascending colon. Lymphadenopathy: None Peritoneum: No ascites. Bladder: Lewis catheter in place. Reproductive organs: Unremarkable Bones/Soft tissues: There are diffuse degenerative changes of the spine. CT/Abdomen/Pelvis W IV Cont ONLY IMPRESSION: Findings concerning for large bowel obstruction secondary to constipation. There is also questionable pneumatosis intestinalis seen in the ascending colon. This is concerning for impending perforation. Recommend surgical consultation. Obstructive uropathy most likely secondary to external compression from colon. Electronically Signed: Dorian Castle MD at 18:13 EST ,
[2023-08-19] MEDS: Ceftriaxone 1 GM/50 ML BAG IV (16:47)
--- OUTSIDE RECORDS SUMMARY | 2023-08-19 18:03 | XMS RPT_ITS | CCD ---
Author Name Unknown Address [address] [place] [address] [address] [place] [address] Organization [facility] Care Team Providers Care Loftsman/Woman Name Role Phone EDMUND NAVARRO DO Attending Unavailable Giovanni, Scarlett Chi Primary Care Provider GIOVANNI, SCARLETT CHI Primary Care Unavailable TESTRAKE, MARIANA Referring Unavailable GIOVANNI, SCARLETT CHI Primary Care Unavailable TESTRAKE, MARIANA Referring Unavailable GIOVANNI, SCARLETT CHI Primary Care Unavailable TESTRAKE, MARIANA Attending Unavailable GIOVANNI, SCARLETT CHI Primary Care Unavailable TESTRAKE, MARIANA Attending Unavailable GIOVANNI, SCARLETT CHI Primary Care Unavailable TESTRAKE, MARIANA Referring Unavailable GIOVANNI, SCARLETT CHI Primary Care Unavailable TESTRAKE, MARIANA Attending Unavailable GIOVANNI, SCARLETT CHI Primary Care Unavailable TESTRAKE, MARIANA Referring Unavailable Allergies Allergy Classification Reported Allergen(s) Allergy Type Date of Onset Reaction(s) Facility (4 sources) Codeine; Translations: [CODEINE] Drug Allergy 06-15-2005 [facility] Work Phone: (4 sources) Ethanol; Translations: [ALCOHOL, UNSPECIFIED] Drug Allergy 06-15-2005 [facility] Work Phone: (4 sources) Penicillins; Translations: [PENICILLINS] Propensity to adverse reactions 06-15-2005 [facility] Work Phone: Medications Completed/Discontinued Medications Medication Drug Class(es) Dates Sig (Normalized) Sig (Original) acetaminophen 500 mg oral tablet (3 sources) take 1 tablet by mouth every eight hours as needed acetaminophen (TYLENOL) 500 mg tablet Take 500 mg by mouth every 8 hours as needed. 0 Active Problems Active Problems Problem Classification Problem Date Documented Da te Episodic/Chronic Nutritional deficiencies (3 sources) Deficiency of macronutrients; Translations: [Unspecified severe protein-calorie malnutrition] Onset: 10-05-2023 10-05-2023 Chronic Other endocrine disorders (3 sources) Primary hyperparathyroidis m; Translations: [Primary hyperparathyroidis m] Onset: 06-22-2006 06-22-2006 Chronic Suicide and intentional self-inflicted injury (2 sources) Suicidal ideations; Translations: [Suicidal ideations] Onset: 03-20-2022 Episodic Past or Other Problems Problem Classification Problem Date Documented Da te Episodic/Chronic Fracture of lower limb (8 sources) Closed fracture of metatarsal bone of left foot; Translations: [Fracture of unspecified metatarsal bone(s), left foot, initial encounter for closed fracture] Onset: 03-24-2023 03-24-2023 Episodic Results Test Name Value Interpretation Reference Range Facil ity Encounters Encounter Date Encounter Type Care Provider Facility Start: 07-19-2023 End: 07-19-2023 ambulatory [facility] Facility:[facility] Start: 04-25-2023 End: 04-25-2023 ambulatory [facility] Facility:[facility] Start: 03-25-2023 Telephone encounter Mariana Stout Work Phone: Podiatry Procedures Date Procedure Procedure Detail Performing Clinician Start: 03-24-2023 Radex ankle complete minimum 3 views Mariana Cameron Work Phone: Plan of Treatment Date Care Activity Detail Author Start: 01-12-2029 Urine microalbumin profile DTaP,Tdap,Td Vaccine (3 - Td or Tdap) [facility] Start: 01-16-2024 Diabetes Screening Diabetes Screening [facility] Start: 02-18-2023 Covid-19 Vaccine ( season) Covid-19 Vaccine ( season) [facility] Start: 02-18-2023 Influenza vaccination Influenza Vaccine (#1) [facility] Start: 08-08-2022 Covid-19 Vaccine (4 - Pfizer series) Covid-19 Vaccine (4 - Pfizer series) [facility] Start: 06-20-2022 Advance Directive Discussion Advance Directive Discussion [facility] Start: 06-20-2022 Depression Assessment Depression Assessment [facility] Start: 2014 Bone Density Screening Bone Density Screening [facility] Start: 2009 RSV Vaccine (1 - 1-dose 60+ series) RSV Vaccine (1 - 1-dose 60+ series) [facility] Start: 07-05-2007 Mammography Mammogram Screening [facility] Start: 08-27-1999 Shingrix Vaccine (1 of 2) Shingrix Vaccine (1 of 2) [facility] Start: 1994 Cologuard (FIT-DNA) Cologuard (FIT-DNA) [facility] Start: 1994 Colonoscopy Colonoscopy [facility] Start: 1994 Colorectal Cancer Screening Colorectal Cancer Screening [facility] Start: [address] COLONOGRAPHY [facility] Start: 1994 Fecal Occult Blood Fecal Occult Blood [facility] Start: 1994 Lipid 1996 panel - Serum or Plasma Lipid Screening [facility] Start: 1994 SIGMOIDOSCOPY SIGMOIDOSCOPY [facility] Start: 1968 Urine microalbumin profile DTaP,Tdap,Td Vaccine (1 - Tdap) [facility] Start: 08-27-1967 Hepatitis C Screening Hepatitis C Screening [facility] Start: 08-27-1955 Pneumococcal Vaccine: 65+ (1 - PCV) Pneumococcal Vaccine: 65+ (1 - PCV) [facility] End: 04-24-2024 XR ANKLE GENERAL 3V AP/LAT/OBL LEFT XR ANKLE GENERAL 3V AP/LAT/OBL LEFT Radiology Routine Closed displaced fracture of metatarsal bone of left foot, unspecified metatarsal, initial encounter Closed nondisplaced fracture of medial malleolus of left tibia with routine healing, subsequent encounter 1 Occurrences starting 03/26/2023 until 04/24/2024 [facility] Work Phone: Immunizations Immunization Date Immunization Notes Care Provider Charisse casillas 04-08-2021 influenza virus vacc ine, unspecified formulation Mariana Cameron Work Phone: [facility] Payers Date Payer Category Payer Medicare [facility] [id number] 2022-Present [phone] [address] [place] [id number] O [id number] 2022 Unknown [id number] 2022 Self-pay 2013 Medicaid [facility] MED[facility] MEDICAID [id number] 2013-Present [phone] [address] [place] [address] Medicaid [id number] 2013 Medicaid [id number] Unknown [id number] Social History Date Type Detail Facility [facility] Work Phone: History of tobacco use Cigarette Smoker C [facility] Work Phone: Start: 02-03-2022 Alcohol intake Current non-dr milk drier of alcohol (finding) [facility] Start: 03-24-2023 History of Social function [facility] Start: 03-24-2023 Area Deprivation Index [facility] National Score (1-10 0), lower number is lower risk 80 [facility] Start: 1950 Sex Assigned At Not on file C [facility] Clinical Notes 03-24-2023 to 07-19-2023 Telephone Encounter - Kaylyn Mcnally RN - 03/29/2023 11:28 AM EDTTelephone Encounter - Mariana Cameron - 03/26/2023 2:57 PM EDTTelephone Encounter - Kari Rodriguez LPN - 03/25/2023 3:15 PM EDT Note Date & Type Note Facility 07-19-2023 Note HNO ID: [id number] Author: MARIANA CAMERON, ? Service: ? Author Type: Physician Type: Progress Notes Filed: 07/19/2023 11:51 Note Text: FOLLOW UP PODIATRIC OFFICE VISIT Chief Complaint: This 72 year old who presents for follow up:left ankle fracture Patient presents to clinic for follow-up left ankle fracture Was given boot but stopped using perhaps one week ago She has no pain She has new xrays to review PAIN EVALUATION No data found in the last 1 encounters. No results found for: HBA1C PCP: Scarlett Veliz MD PAST MEDICAL HISTORY Diagnosis Date Adjustment disorder with depressed mood Chronic obstructive asthma with status asthmaticus Oxygen at bedtime Generalized osteoarthrosis, unspecified site PMH - PAST MEDICAL HISTORY OF SEIZURE DISORDER Current Outpatient Medications Medication Sig atorvastatin (LIPITOR) 40 mg tablet dicyclomine (BENTYL) 10 mg capsule DULoxetine (CYMBALTA) 20 mg capsule levothyroxine (SYNTHROID) 25 mcg tablet midodrine (PROAMATINE) [address] (PROTONIX) 40 mg tablet RHOPRESSA 0.02 % ophthalmic drops rOPINIRole Hydrochloride 3 mg tablet sucralfate (CARAFATE) 1 gram tablet sertraline (ZOLOFT) 100 mg tablet risperiDONE (RISPERDAL) 0.5 mg tablet acetaminophen (TYLENOL) 500 mg tablet Take 500 mg by mouth every 8 hours as needed. dext 70/polycarbophil/peg/NaCl (ARTIFICIAL TEAR SOLUTION OPHTHALMIC) Use in eyes. benztropine (COGENTIN) 2 mg tablet Take by mouth two times a day. ferrous sulfate (IRON) 325 mg (65 mg iron) tablet Take 325 mg by mouth. methadone (DOLOPHINE) 10 mg tablet Take 10 mg by mouth every 4 hours as needed. psyllium husk (METAMUCIL ORAL) Take by mouth. nitroglycerin sublingual (NITROSTAT) 0.4 mg SL tablet Dissolve 0.4 mg under the tongue every 5 minutes as needed for chest pain. OXcarbazepine ER (OXTELLAR XR) 600 mg tablet Take by mouth. magnesium hydroxide (MILK OF MAGNESIA ORAL) Take by mouth. polyethylene glycol 3350 (MIRALAX ORAL) Take by mouth. bimatoprost (LUMIGAN) 0.01 % drop ophthalmic drops 1 Drop daily at bedtime. carboxymethylcellulose (REFRESH TEARS) 0.5 % drop 1 Drop as needed. temazepam (RESTORIL) 15 mg Take by mouth at bedtime as needed. cholecalciferol, vitamin D3, (VITAMIN D3 ORAL) Take by mouth. lifitegrast (XIIDRA) 5 % ophthalmic drops Use 1 Drop in eyes. fluticasone-vilanterol (BREO ELLIPTA) 100-25 mcg/dose inhaler Inhale 1 Inhalation as instructed once daily. umeclidinium (INCRUSE ELLIPTA) 62.5 mcg/actuation inhaler Inhale 1 Puff as instructed once daily. Multivitamin (MULTIPLE VITAMINS) ORAL Tab Take one(1) tablet daily. PHENOBARBITAL 30 MG TAB Take one(1) tablet two(2) times daily. KLOR-CON M10 10 MEQ TAB Take one(1) tablet daily. take with lasix PREVACID 30 MG CAP Take one(1) capsule daily. No current facility-administered medications for this visit. ALLERGIES Allergen Reactions Alcohol, Unspecified Codeine Penicillins PAST SURGICAL HISTORY Procedure Laterality Date APPENDECTOMY ARTHRP ACETBLR/PROX FEM PROSTC AGRFT/ALGRFT 2000 CHOLECYSTECTOMY CLTX CARPAL BONE FX W/O MANJ EACH BONE EXC CYST/ABERRANT BREAST TISSUE OPEN 1/> LESION RIGHT BREAST LIG/TRNSXJ FLP TUBE ABDL/VAG APPR UNI/BI OOPHORECTOMY PARTIAL/TOTAL UNI/BI RIGHT PARATHYROIDECTOMY/EXPLORATION PARATHYROIDS 03/13/07 LEFT INFERIOR Physical Exam: OBJECTIVE: Constitutional: Pt is a well developed 72 year old female who is alert, oriented, cooperative and in no apparent distress. Eyes: Following during examination. No redness or drainage. Respiratory: RR normal and nonlabored. Even breathing. No evidence of distress. Psychology: Patient is engaged during conversation. Normal affect and mood. Does not appear depressed or anxious. NVSI unchanged from previous visit. Dermatological: No open wounds noted to left lower extremity. Musculoskeletal/Orthopaedic: Patient has no pain to palpation of left ankle Xrays of left foot and ankle reviewed. + osteopenia noted. Prior fracture is less distinct ASSESSMENT: (S92.302A) Closed displaced fracture of metatarsal bone of left foot, unspecified metatarsal, initial encounter (primary encounter diagnosis) (S82.55XD) Closed nondisplaced fracture of medial malleolus of left tibia with routine healing, subsequent encounter PLAN: Reviewed xrays. Prior fracture of foot and tibia now appeared healed. Patient states she is back to her baseline prior to injury Ok to continue with assisted ambulation. Mariana Cameron DPM [facility] 07-19-2023 Note HNO ID: [id number] Author: CLEMENT LLOYD RN Service: ? Author Type: Registered Nurse Type: Progress Notes Filed: 07/19/2023 11:51 Note Text: Patient presents with: Left Ankle - Follow Up, Fracture She has XR to review. No pain. [facility] 07-19-2023 Note HNO ID: [id number] Author: ALEX VALDES RT(Jd) Service: Radiology Author Type: Technologist Type: Progress Notes Filed: 07/19/2023 12:01 Note Text: Radiology Service Progress Note PATIENT NAME: Bela Sandoval DATE OF SERVICE: July 19, 2023 TIME:11:15 PM PATIENT IDENTITY VERIFICATION COMPLETED USING TWO (2) IDENTIFIERS: Name and Date of confirmed by patient verbally. FALL SCREENING: Has the patient had 2 falls in the last year or 1 fall with injury or currently using an Ambulatory Assistive Device (Walker, Cane, Wheelchair, Crutches, etc.)? Yes, Patient High Risk for Falls What interventions were put in place to prevent falls during this visit? Offered Assistance with Transfers/Clothing and Instructed Patient to Remain Seated (Not on Exam Table) Until Exam PATIENT GENDER DATA: Female. status: : No status: NO. PATIENT RELEVANT IMPLANT DATA REVIEWED: Not Applicable PATIENT PRESENTS WITH AN IMPLANTABLE OR ATTACHED BENDER HAND: No RADIOLOGY DEPARTMENT: General X-ray: Exam(s) Completed: Lower Extremity X-Ray(s): Ankle, Left and Foot, Left PERIPHERAL IV DATA: Not applicable SIGNED BY: RT Dale(R) July 19, 2023 12:00 PM [facility] 04-25-2023 Note HNO ID: [id number] Author: Mariana Cameron Service: ? Author Type: Physician Type: Progress Notes Filed: 04/25/2023 3:35 PM Note Text: FOLLOW UP PODIATRIC OFFICE VISIT Chief Complaint: This 72 year old who presents for follow up:left 3rd metatarsal fracture and left medial malleolar fracture Patient presents to clinic for evaluation of left foot and ankle. Patient is using boot. Remains nwb Has minimal to no pain Has xrays to review. Injury: December 2022 PAIN EVALUATION No data found in the last 1 encounters. No results found for: HBA1C PCP: Scarlett Veliz MD PAST MEDICAL HISTORY Diagnosis Date Adjustment disorder with depressed mood Chronic obstructive asthma with status asthmaticus Oxygen at bedtime Generalized osteoarthrosis, unspecified site PMH - PAST MEDICAL HISTORY OF SEIZURE DISORDER Current Outpatient Medications Medication Sig atorvastatin (LIPITOR) 40 mg tablet dicyclomine (BENTYL) 10 mg capsule DULoxetine (CYMBALTA) 20 mg capsule levothyroxine (SYNTHROID) 25 mcg tablet midodrine (PROAMATINE) [address] (PROTONIX) 40 mg tablet RHOPRESSA 0.02 % ophthalmic drops rOPINIRole Hydrochloride 3 mg tablet sucralfate (CARAFATE) 1 gram tablet sertraline (ZOLOFT) 100 mg tablet risperiDONE (RISPERDAL) 0.5 mg tablet acetaminophen (TYLENOL) 500 mg tablet Take 500 mg by mouth every 8 hours as needed. dext 70/polycarbophil/peg/NaCl (ARTIFICIAL TEAR SOLUTION OPHTHALMIC) Use in eyes. benztropine (COGENTIN) 2 mg tablet Take by mouth two times a day. ferrous sulfate (IRON) 325 mg (65 mg iron) tablet Take 325 mg by mouth. methadone (DOLOPHINE) 10 mg tablet Take 10 mg by mouth every 4 hours as needed. psyllium husk (METAMUCIL ORAL) Take by mouth. nitroglycerin sublingual (NITROSTAT) 0.4 mg SL tablet Dissolve 0.4 mg under the tongue every 5 minutes as needed for chest pain. OXcarbazepine ER (OXTELLAR XR) 600 mg tablet Take by mouth. magnesium hydroxide (MILK OF MAGNESIA ORAL) Take by mouth. polyethylene glycol 3350 (MIRALAX ORAL) Take by mouth. bimatoprost (LUMIGAN) 0.01 % drop ophthalmic drops 1 Drop daily at bedtime. carboxymethylcellulose (REFRESH TEARS) 0.5 % drop 1 Drop as needed. temazepam (RESTORIL) 15 mg Take by mouth at bedtime as needed. cholecalciferol, vitamin D3, (VITAMIN D3 ORAL) Take by mouth. lifitegrast (XIIDRA) 5 % ophthalmic drops Use 1 Drop in eyes. fluticasone-vilanterol (BREO ELLIPTA) 100-25 mcg/dose inhaler Inhale 1 Inhalation as instructed once daily. umeclidinium (INCRUSE ELLIPTA) 62.5 mcg/actuation inhaler Inhale 1 Puff as instructed once daily. Multivitamin (MULTIPLE VITAMINS) ORAL Tab Take one(1) tablet daily. PHENOBARBITAL 30 MG TAB Take one(1) tablet two(2) times daily. KLOR-CON M10 10 MEQ TAB Take one(1) tablet daily. take with lasix PREVACID 30 MG CAP Take one(1) capsule daily. No current facility-administered medications for this visit. ALLERGIES Allergen Reactions Alcohol, Unspecified Codeine Penicillins PAST SURGICAL HISTORY Procedure Laterality Date APPENDECTOMY ARTHRP ACETBLR/PROX FEM PROSTC AGRFT/ALGRFT 2000 CHOLECYSTECTOMY CLTX CARPAL BONE FX W/O MANJ EACH BONE EXC CYST/ABERRANT BREAST TISSUE OPEN 1/> LESION RIGHT BREAST LIG/TRNSXJ FLP TUBE ABDL/VAG APPR UNI/BI OOPHORECTOMY PARTIAL/TOTAL UNI/BI RIGHT PARATHYROIDECTOMY/EXPLORATION PARATHYROIDS 03/13/07 LEFT INFERIOR Physical Exam: OBJECTIVE: Constitutional: Pt is a well developed 72 year old female who is alert, oriented, cooperative and in no apparent distress. Eyes: Following during examination. No redness or drainage. Respiratory: RR normal and nonlabored. Even breathing. No evidence of distress. Psychology: Patient is engaged during conversation. Normal affect and mood. Does not appear depressed or anxious. NVSI unchanged from previous visit. Dermatological: Nails 1-5 b/l are normal. Webspaces clean and dry 1-4 b/l. Skin appears well hydrated and supple. good color, texture, turgor. No open lesions present. No callosities present. Musculoskeletal/Orthopaedic: Patient has no pain to palpation of left ankle Xrays of left foot shows healing/healed fracture of 3rd metatarsal Xrays of ankle shows nearly healed medial malleoar fracture ASSESSMENT: (S82.55XD) Closed nondisplaced fracture of medial malleolus of left tibia with routine healing, subsequent encounter (primary encounter diagnosis) (S92.302A) Closed displaced fracture of metatarsal bone of left foot, unspecified metatarsal, initial encounter PLAN: Patient has fracture likely sustained in December and presents for one month follow up. Discussed fracture of medial malleolus. Fracture shows further healing. Would continue with boot and nonweightbearing for minimum of one more month. Possible transition into ankle brace in one month Fracture of foot is healed. Due to fracture of ankle, will continue with boot and erpeat xrays in one mon (more content not included)... [facility] 04-25-2023 Note HNO ID: [id number] Author: Kari Rodriguez LPN Service: ? Author Type: LICENSED NURSE Type: Progress Notes Filed: 04/25/2023 3:35 PM Note Text: AMB ROOMING INTAKE FLOWSHEET DATA Risk Screening Do you have concerns about personal safety or safety in the home?: No Patient presents with: Left Foot - Established Patient, Follow Up, Fracture Kari Rodriguez LPN [facility] 04-25-2023 Note HNO ID: [id number] Author: Rita Dia RT(R) Service: ? Author Type: Technologist Type: Progress Notes Filed: 04/25/2023 1:45 PM Note Text: Radiology Service Progress Note PATIENT NAME: Bela Sandoval DATE OF SERVICE: April 25, 2023 TIME: 1:45 PM PATIENT IDENTITY VERIFICATION COMPLETED USING TWO (2) IDENTIFIERS: Name and Date of confirmed by patient verbally. FALL SCREENING: Has the patient had 2 falls in the last year or 1 fall with injury or currently using an Ambulatory Assistive Device (Walker, Cane, Wheelchair, Crutches, etc.)? Yes, Patient High Risk for Falls What interventions were put in place to prevent falls during this visit? Increased Observations by Caregivers PATIENT GENDER DATA: Female. status: : No status: NO. PATIENT RELEVANT IMPLANT DATA REVIEWED: Not Applicable RADIOLOGY DEPARTMENT: General X-ray: Exam(s) Completed: Lower Extremity X-Ray(s): Ankle, Left and Foot, Left PERIPHERAL IV DATA: Not applicable SIGNED BY: RT Iraj(R) April 25, 2023 1:45 PM [facility] 03-29-2023 Miscellaneous Notes Called patient-home number had busy signal Called [facility]. Spoke with Monserrat- Informed her of below results and recommendations. She verbalized understanding. Please call patient to inform her that xrays do show healing. I would repeat xrays in 1 month. Continue with brett Cameron DPM Attempted to contact patient with number provider and calling nursing facility no response. Kari Rodriguez LPN Please call patient to inform her that her vitamin d is normal Mariana Cameron DPM documented in this encounter [facility] 03-24-2023 Note HNO ID: [id number] Author: Melody Griffin RT(R) Service: Radiology Author Type: Technologist Type: Progress Notes Filed: 03/24/2023 10:55 AM Note Text: Radiology Service Progress Note PATIENT NAME: Bela Sandoval DATE OF SERVICE: March 24, 2023 TIME: 10:37 AM PATIENT IDENTITY VERIFICATION COMPLETED USING TWO (2) IDENTIFIERS: Name and Date of confirmed by patient verbally. FALL SCREENING: Has the patient had 2 falls in the last year or 1 fall with injury or currently using an Ambulatory Assistive Device (Walker, Cane, Wheelchair, Crutches, etc.)? Yes, Patient High Risk for Falls What interventions were put in place to prevent falls during this visit? Instructed Patient to Call for Help if Needed, Offered Assistance with Transfers/Clothing, and Increased Observations by Caregivers PATIENT GENDER DATA: Female. status: : No status: NO. PATIENT RELEVANT IMPLANT DATA REVIEWED: Yes RADIOLOGY DEPARTMENT: General X-ray: Exam(s) Completed: Lower Extremity X-Ray(s): Ankle, Left and Foot, Left PERIPHERAL IV DATA: Not applicable SIGNED BY: RT Alfonso(R) March 24, 2023 10:37 AM [facility] 03-24-2023 Note HNO ID: [id number] Author: Mariana Cameron Service: ? Author Type: Physician Type: Progress Notes Filed: 03/24/2023 11:05 AM Note Text: Initial Podiatric Office Visit: Chief Complaint: This 72 year old female who presents with chief complaint:left ankle fracture HPI Patient presents to clinic for evaluation of left ankle She states sometime last month, she went to the bathroom and her foot got caught and she rolled her left ankle She went to [facility]. Had xrays that were suggestive of medial malleolar fracture. She was placed in boot and is nwb She does have pain. The pain is getting better. PAIN EVALUATION 03/24/2023 0957 Pain Level: 8 Pain Location: Ankle-Left Duration Amount of Time: 1 Duration Units: Months Frequency: Continuous Intervention/Comfort measure: Reposition;Relaxation;Splinting No results found for: HBA1C PCP: Scarlett Veliz MD PAST MEDICAL HISTORY Diagnosis Date Adjustment disorder with depressed mood Chronic obstructive asthma with status asthmaticus (HCC) Oxygen at bedtime Generalized osteoarthrosis, unspecified site PMH - PAST MEDICAL HISTORY OF SEIZURE DISORDER Current Outpatient Medications Medication Sig varenicline (CHANTIX) 1 mg ORAL Tab Multivitamin (MULTIPLE VITAMINS) ORAL Tab Take one(1) tablet daily. PHENOBARBITAL 30 MG TAB Take one(1) tablet two(2) times daily. GYNE-LOTRIMIN 1 % VAGINAL CREAM apply twice daiy DILTIAZEM XR 180 MG CAP Take one(1) tablet daily. ETODOLAC 400 MG TAB Take one(1) tablet two(2) times daily. OXYCODONE 30 MG TAB take 1-4 times daily LEXAPRO 20 MG TAB Take one(1) tablet daily. TRAZODONE 150 MG TAB Take one(1) tablet daily at bedtime. LASIX 40 MG TAB Take one(1) tablet daily. KLOR-CON M10 10 MEQ TAB Take one(1) tablet daily. take with lasix HYDROXYZINE PAMOATE 25 MG CAP Take one(1) tablet two(2) times daily. DOCUSATE SODIUM 100 MG CAP Take one(1) tablet daily. ARICEPT 10 MG TAB Take one(1) tablet daily. DETROL LA 4 MG 24 HR CAP DILANTIN 100 MG CAP PREVACID 30 MG CAP Take one(1) capsule daily. ADVAIR DISKUS 500 MCG-50 MCG/DOSE FOR INHALATION No current facility-administered medications for this visit. ALLERGIES Allergen Reactions Alcohol, Unspecified Codeine Penicillins PAST SURGICAL HISTORY Procedure Laterality Date APPENDECTOMY ARTHRP ACETBLR/PROX FEM PROSTC AGRFT/ALGRFT 2000 CHOLECYSTECTOMY CLTX CARPAL BONE FX W/O MANJ EACH BONE EXC CYST/ABERRANT BREAST TISSUE OPEN 1/> LESION RIGHT BREAST LIG/TRNSXJ FLP TUBE ABDL/VAG APPR UNI/BI OOPHORECTOMY PARTIAL/TOTAL UNI/BI RIGHT PARATHYROIDECTOMY/EXPLORATION PARATHYROIDS 03/13/07 LEFT INFERIOR FAMILY HISTORY Problem Relation Age of Onset Diabetes Mother Cancer Father Social History Tobacco Use Smoking status: Every Day Packs/day: 0.50 Years: 31.00 Additional pack years: 0.00 Total pack years: 15.50 Types: Cigarettes Substance Use Topics Alcohol use: No Drug use: No REVIEW OF SYSTEMS GENERAL: Negative for Malaise, significant weight loss, fever RESPIRATORY: Negative for cough, wheezing and shortness of breath CARDIOVASCULAR: Negative for chest pain, leg swelling and palpitations GI: Negative for abdominal discomfort, blood in stools or black stools and change in bowel habits : Negative for dysuria, frequency and incontinence MUSCULOSKELETAL: Negative for joint pain or swelling, back pain, and muscle pain. SKIN: Negative for lesions, rash, and itching. HEMATOLOGY/LYMPHOLOGY Negative for prolonged bleeding, bruising easily, and swollen nodes. ENDOCRINE: Negative for cold or heat intolerance, polyuria, polydipsia and goiter. NEURO: negative Physical Exam: Constitutional: Pt is a well developed 72 year old female who is alert, oriented and cooperative Eyes: Following during examination. No redness or drainage. Respiratory: RR normal and nonlabored. Even breathing. No evidence of distress or shortness of breath. Psychology: Patient is engaged during conversation. Normal affect and mood. Does not appear depressed or anxious during encounter. Vascular: Dorsalis pedis and posterior tibial pulses faintly palpable as b/l Capillary Fill time < 5 seconds to digits 1-5 b/l Skin temperature warm to warm proximal to distal b/l Hair growth decreased to digits Swelling present to left foot and ankle. No calf pain Neurological: intact light touch/epicritic sensation b/l intact protective sensation no significant neurological deficits Dermatological: No open wounds noted to b/l feet Musculoskeletal/Orthopaedic: Patient has pain to palpation of left 3rd metataral and left medial malleolus No calf pain noted Radiographs: ordered. Reviewed xrays from [facility]. Nondisplaced medial malleolar fracture. Nondisplaced 3rd metatarsal fracture ASSESSMENT: (S92.302D) Closed nondisplaced fracture of metatarsal bone of left foot, unspecified metatarsal, initial encounter (primary encounter di (more content not included)... [facility] 03-24-2023 Note HNO ID: [id number] Author: Kari Rodriguez LPN Service: ? Author Type: LICENSED NURSE Type: Progress Notes Filed: 03/24/2023 11:05 AM Note Text: AMB ROOMING INTAKE FLOWSHEET DATA Pain Pain Level: 8 Pain Location: Ankle-Left Duration Amount of Time: 1 Duration Units: Months Frequency: Continuous Intervention/Comfort measure: Reposition, Relaxation, Splinting Patient presents with: Left Foot - New, Fracture, Pain Kari Rodriguez LPN [facility] 03-24-2023 History of Presen t illness Narrative Radiology Service Progress Note PATIENT NAME: Bela Sandoval DATE OF SERVICE: March 24, 2023 TIME: 10:37 AM PATIENT IDENTITY VERIFICATION COMPLETED USING TWO (2) IDENTIFIERS: Name and Date of confirmed by patient verbally. FALL SCREENING: Has the patient had 2 falls in the last year or 1 fall with injury or currently using an Ambulatory Assistive Device (Walker, Cane, Wheelchair, Crutches, etc.)? Yes, Patient High Risk for Falls What interventions were put in place to prevent falls during this visit? Instructed Patient to Call for Help if Needed, Offered Assistance with Transfers/Clothing, and Increased Observations by Caregivers PATIENT GENDER DATA: Female. status: : No status: NO. PATIENT RELEVANT IMPLANT DATA REVIEWED: Yes RADIOLOGY DEPARTMENT: General X-ray: Exam(s) Completed: Lower Extremity X-Ray(s): Ankle, Left and Foot, Left PERIPHERAL IV DATA: Not applicable SIGNED BY: RT Alfonso(R) March 24, 2023 10:37 AM documented in this encounter [facility] 03-24-2023 History of Presen t illness Narrative Initial Podiatric Office Visit: Chief Complaint: This 72 year old female who presents with chief complaint:left ankle fracture HPI Patient presents to clinic for evaluation of left ankle She states sometime last month, she went to the bathroom and her foot got caught and she rolled her left ankle She went to [facility]. Had xrays that were suggestive of medial malleolar fracture. She was placed in boot and is nwb She does have pain. The pain is getting better. PAIN EVALUATION 03/24/2023 0957 Pain Level: 8 Pain Location: Ankle-Left Duration Amount of Time: 1 Duration Units: Months Frequency: Continuous Intervention/Comfort measure: Reposition;Relaxation;Splinting No results found for: HBA1C PCP: Scarlett Veliz MD PAST MEDICAL HISTORY Diagnosis Date Adjustment disorder with depressed mood Chronic obstructive asthma with status asthmaticus (HCC) Oxygen at bedtime Generalized osteoarthrosis, unspecified site PMH - PAST MEDICAL HISTORY OF SEIZURE DISORDER Current Outpatient Medications Medication Sig varenicline (CHANTIX) 1 mg ORAL Tab Multivitamin (MULTIPLE VITAMINS) ORAL Tab Take one(1) tablet daily. PHENOBARBITAL 30 MG TAB Take one(1) tablet two(2) times daily. GYNE-LOTRIMIN 1 % VAGINAL CREAM apply twice daiy DILTIAZEM XR 180 MG CAP Take one(1) tablet daily. ETODOLAC 400 MG TAB Take one(1) tablet two(2) times daily. OXYCODONE 30 MG TAB take 1-4 times daily LEXAPRO 20 MG TAB Take one(1) tablet daily. TRAZODONE 150 MG TAB Take one(1) tablet daily at bedtime. LASIX 40 MG TAB Take one(1) tablet daily. KLOR-CON M10 10 MEQ TAB Take one(1) tablet daily. take with lasix HYDROXYZINE PAMOATE 25 MG CAP Take one(1) tablet two(2) times daily. DOCUSATE SODIUM 100 MG CAP Take one(1) tablet daily. ARICEPT 10 MG TAB Take one(1) tablet daily. DETROL LA 4 MG 24 HR CAP DILANTIN 100 MG CAP PREVACID 30 MG CAP Take one(1) capsule daily. ADVAIR DISKUS 500 MCG-50 MCG/DOSE FOR INHALATION No current facility-administered medications for this visit. ALLERGIES Allergen Reactions Alcohol, Unspecified Codeine Penicillins PAST SURGICAL HISTORY Procedure Laterality Date APPENDECTOMY ARTHRP ACETBLR/PROX FEM PROSTC AGRFT/ALGRFT 2000 CHOLECYSTECTOMY CLTX CARPAL BONE FX W/O MANJ EACH BONE EXC CYST/ABERRANT BREAST TISSUE OPEN 1/> LESION RIGHT BREAST LIG/TRNSXJ FLP TUBE ABDL/VAG APPR UNI/BI OOPHORECTOMY PARTIAL/TOTAL UNI/BI RIGHT PARATHYROIDECTOMY/EXPLORATION PARATHYROIDS 03/13/07 LEFT INFERIOR FAMILY HISTORY Problem Relation Age of Onset Diabetes Mother Cancer Father Social History Tobacco Use Smoking status: Every Day Packs/day: 0.50 Years: 31.00 Additional pack years: 0.00 Total pack years: 15.50 Types: Cigarettes Substance Use Topics Alcohol use: No Drug use: No REVIEW OF SYSTEMS GENERAL: Negative for Malaise, significant weight loss, fever RESPIRATORY: Negative for cough, wheezing and shortness of breath CARDIOVASCULAR: Negative for chest pain, leg swelling and palpitations GI: Negative for abdominal discomfort, blood in stools or black stools and change in bowel habits : Negative for dysuria, frequency and incontinence MUSCULOSKELETAL: Negative for joint pain or swelling, back pain, and muscle pain. SKIN: Negative for lesions, rash, and itching. HEMATOLOGY/LYMPHOLOGY Negative for prolonged bleeding, bruising easily, and swollen nodes. ENDOCRINE: Negative for cold or heat intolerance, polyuria, polydipsia and goiter. NEURO: negative Physical Exam: Constitutional: Pt is a well developed 72 year old female who is alert, oriented and cooperative Eyes: Following during examination. No redness or drainage. Respiratory: RR normal and nonlabored. Even breathing. No evidence of distress or shortness of breath. Psychology: Patient is engaged during conversation. Normal affect and mood. Does not appear depressed or anxious during encounter. Vascular: Dorsalis pedis and posterior tibial pulses faintly palpable as b/l Capillary Fill time < 5 seconds to digits 1-5 b/l Skin temperature warm to warm proximal to distal b/l Hair growth decreased to digits Swelling present to left foot and ankle. No calf pain Neurological: intact light touch/epicritic sensation b/l intact protective sensation no significant neurological deficits Dermatological: No open wounds noted to b/l feet Musculoskeletal/Orthopaedic: Patient has pain to palpation of left 3rd metataral and left medial malleolus No calf pain noted Radiographs: ordered. Reviewed xrays from [facility]. Nondisplaced medial malleolar fracture. Nondisplaced 3rd metatarsal fracture ASSESSMENT: (S92.302A) Closed nondisplaced fracture of metatarsal bone of left foot, unspecified metatarsal, initial encounter (primary encounter diagnosis) (S82.55XD) Closed nondisplaced fracture of medial malleolus of left tibia with routine healing, subsequent encounter PLAN: 1. History and physical examination performed. 2. XR reviewed with patient and interpreted today 3. Will repeat xrays today of ankle and foot 4. Continue with nwb to left foot 5. Continue with boot 6. Will check vitamin d 7. F/u in 1 month with repeat xrays Mariana Cameron DPM Podiatry [address] [place] [address] Dept: [phone] Dept AMB ROOMING INTAKE FLOWSHEET DATA Pain Pain Level: 8 Pain Location: Ankle-Left Duration Amount of Time: 1 Duration Units: Months Frequency: Continuous Intervention/Comfort measure: Reposition, Relaxation, Splinting Patient presents with: Left Foot - New, Fracture, Pain Kari Rodriguez LPN documented in this encounter [facility] Diagnosis Closed displaced fracture of metatarsal bone of left foot, unspecified metatarsal, initial encounter- Primary Closed nondisplaced fracture of medial malleolus of left tibia with routine healing, subsequent encounter [facility] Diagnosis Closed displaced fracture of metatarsal bone of left foot, unspecified metatarsal, initial encounter Closed nondisplaced fracture of medial malleolus of left tibia with routine healing, subsequent encounter [facility] Diagnostic Procedure Only (Routine) - Closed Specialty Diagnoses / Procedures Referred By Natali t Referred To Contact XR IMAGING Diagnoses Closed nondisplaced fracture of medial malleolus of left tibia with routine healing, subsequent encounter Procedures XR ANKLE GENERAL 3V AP/LAT/OBL LEFT RADEX ANKLE COMPLETE MINIMUM 3 VIEWS Mariana Cameron [address] [place] [address] [place] [address] Referral ID Status Reason Start Date Expiration Date V isits Requested Visits Authorized [id number] Closed Auto-Generate d Referral 03/24/2023 04/22/2024 1 1 * Diagnostic Procedure Only (Routine) - Closed Specialty Diagnoses / Procedures Referred By Contac t Referred To Contact XR IMAGING Diagnoses Closed displaced fracture of metatarsal bone of left foot, unspecified metatarsal, initial encounter Procedures XR FOOT GENERAL 3V AP/LAT/OBL LEFT RADEX FOOT COMPLETE MINIMUM 3 VIEWS Mariana Cameron[address] [place] [address] [place] [address] Referral ID Status Reason Start Date Expiration Date V isits Requested Visits Authorized [id number] Closed Auto-Generate d Referral 03/24/2023 04/22/2024 [address] [facility] for referral (narrative)* Diagnostic Procedure Only (Routine) - Pending Review Specialty Diagnoses / Procedures Referred By Natali ham Referred To Contact XR IMAGING Diagnoses Closed displaced fracture of metatarsal bone of left foot, unspecified metatarsal, initial encounter Closed nondisplaced fracture of medial malleolus of left tibia with routine healing, subsequent encounter Procedures XR ANKLE GENERAL 3V AP/LAT/OBL LEFT RADEX ANKLE COMPLETE MINIMUM 3 VIEWS Mariana Cameron[address] [place] [address] [place] [address] Referral ID Status Reason Start Date Expiration Date Visits Requested Visits Authorized [id number] Pending Review Auto-Generat ed Referral 03/26/2023 04/24/2024 1 1 * Diagnostic Procedure Only (Routine) - Pending Review Specialty Diagnoses / Procedures Referred By Natali ham Referred To Contact XR IMAGING Diagnoses Closed displaced fracture of metatarsal bone of left foot, unspecified metatarsal, initial encounter Closed nondisplaced fracture of medial malleolus of left tibia with routine healing, subsequent encounter Procedures XR FOOT GENERAL 3V AP/LAT/OBL LEFT RADEX FOOT COMPLETE MINIMUM 3 VIEWS Mariana Cameron[address] [place] [address] [place] [address] Referral ID Status Reason Start Date Expiration Date Visits Requested Visits Authorized [id number] Pending Review Auto-Generat ed Referral 03/26/2023 04/24/2024 [address] [facility] for referral (narrative)* Diagnostic Procedure Only (Routine) - Closed Specialty Diagnoses / Procedures Referred By Contac t Referred To Contact XR IMAGING Diagnoses Closed nondisplaced fracture of medial malleolus of left tibia with routine healing, subsequent encounter Procedures XR ANKLE GENERAL 3V AP/LAT/OBL LEFT RADEX ANKLE COMPLETE MINIMUM 3 VIEWS Mariana Cameron[address] [place] [address] [place] [address] Referral ID Status Reason Start Date Expiration Date V isits Requested Visits Authorized [id number] Closed Auto-Generate d Referral 03/24/2023 04/22/2024 1 1 * Diagnostic Procedure Only (Routine) - Closed Specialty Diagnoses / Procedures Referred By Contac t Referred To Contact XR IMAGING Diagnoses Closed displaced fracture of metatarsal bone of left foot, unspecified metatarsal, initial encounter Procedures XR FOOT GENERAL 3V AP/LAT/OBL LEFT RADEX FOOT COMPLETE MINIMUM 3 VIEWS Mariana Cameron[address] [place] [address] [place] [address] Referral ID Status Reason Start Date Expiration Date V isits Requested Visits Authorized [id number] Closed Auto-Generate d Referral 03/24/2023 04/22/2024 [address] [facility] for visit Narrative* Diagnostic Procedure Only (Routine) - Closed Specialty Diagnoses / Procedures Referred By Contac t Referred To Contact XR IMAGING Diagnoses Closed nondisplaced fracture of medial malleolus of left tibia with routine healing, subsequent encounter Procedures XR ANKLE GENERAL 3V AP/LAT/OBL LEFT RADEX ANKLE COMPLETE MINIMUM 3 VIEWS Mariana Cameron [address] [place] [address] [place] [address] Referral ID Status Reason Start Date Expiration Date V isits Requested Visits Authorized [id number] Closed Auto-Generate d Referral 03/24/2023 04/22/2024 1 1 [facility] Summary Purpose Family History No Family History Records FoundNo Family History Records FoundNo Family History Records FoundNo Family History Records FoundNo Family History Records Found Advance Directives No Advanced Directives Records FoundNo Advanced Directives Records FoundNo Advanced Directives Records FoundNo Advanced Directives Records FoundNo Advanced Directives Records Found Additional Source Comments INFORMATION SOURCE (unrecogn ized section and content) DATE CREATED AUTHOR AUTHOR'S ORGANIZ ATION 03/21/2022 [facility] DATE CREATED AUTHOR AUTHOR'S ORGANIZ ATION 03/22/2022 [facility] DATE CREATED AUTHOR AUTHOR'S ORGANIZ ATION 03/25/2022 [facility] ([place]) DATE CREATED AUTHOR AUTHOR'S ORGANIZ ATION 07/22/2023 [facility] Source Comments (unrecognize d section and content) In the event this informatio n is protected by the Federal Confidentiality of Alcohol and Drug Abuse Patient Records regulations: The Federal rules restrict any use of the information to criminally investigate or prosecute any alcohol or drug abuse patient.[facility] the event this information is protected by the Federal Confidentiality of Alcohol and Drug Abuse Patient Records regulations: The Federal rules restrict any use of the information to criminally investigate or prosecute any alcohol or drug abuse patient.[facility] the event this information is protected by the Federal Confidentiality of Alcohol and Drug Abuse Patient Records regulations: The Federal rules restrict any use of the information to criminally investigate or prosecute any alcohol or drug abuse patient.[facility] Reason for Visit (unrecogniz ed section and content) Reason Comments Results Care Teams (unrecognized sec tion and content) Loftsman/Woman Relationship Specialty Start Date End Date Scarlett Veliz Chi PCP - General Family Medicine 05/23/12 Loftsman/Woman Relationship Specialty Start Date End Date Scarlett Veliz Chi PCP - General Family Medicine 05/23/12 FOR RECORDS PERTAINING TO PATIENTS WHO ARE OR HAVE BEEN ENROLLED IN A CHEMICAL DEPENDENCY/SUBSTANCEABUSE PROGRAM, SOME INFORMATION MAY BE OMITTED. This clinical summary was aggregated from multiple sources. Caution should be exercised in using it in the provision of clinical care. This summary normalizes information from multiple sources, and as a consequence, information in this document may materially change the coding, format and clinical context of patient data. In addition, data may be omitted in some cases. CLINICAL DECISIONS SHOULD BE BASED ON THE PRIMARY CLINICAL RECORDS. [facility] [employer]. provides no warranty or guarantee of the accuracy or completeness of information in this document.
--- NOTE | 2023-08-19 19:10 | EX.PCM.CON.S ---
Assessment & Plan Assessment/Plan (1) Ileus: PLAN: The patient seems to have an infection with an elevated white count and left shift and being febrile. I was called in due to the CT read. The CT was read as large amount of constipation with possible pneumatosis and concern for pending perforation. I examined the patient and her abdomen is distended but it is not very tender and she is no guarding or peritoneal signs. She was obtunded and I was unable to speak to her. We were able to roll her on her side and perform a disimpaction but during disimpaction all the stool in the very soft. There was no firm stool that needed help being removed. The patient does have some sort of infection as she is febrile and has an elevated white count but I am unsure that it is from the abdomen. She does not seem to be guarding or having a lot of abdominal pain or wincing with palpation. I was able to perform a disimpaction but most of it was soft and there was a lot of gas that came out afterwards. I will order an enema for the night to see if this can clear some of the stool from her colon. At this time I do not believe there is a surgical indication. I spoke with hospitalist and he will admit her and start her on antibiotics and we will observe her creatinine and white count in the morning. I discussed all of this plan with the patient's son who is in agreement. Jr Dunlap MD Pager: [facility] [address] [place] [address], [address] [place] [address] Office: HPI Consult Data Date of Consult: 08/19/23 HPI Narrative HPI Narrative: XANDER RAMIREZ, is a 72 F who presents from a correction being obtunded. Pt was not able to answer any questions. 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 Cardiology follow-up encounter Chronic constipation Chronic hypoxemic respiratory failure COPD (chronic obstructive pulmonary disease) Debility Degenerative disc disease, lumbar Depression Diverticulosis DVT (deep venous thrombosis) Epilepsy Essential tremor Extrapyramidal disorder Gastric reflux Gastritis Grade III hemorrhoids Hemorrhoids History of echocardiogram History of edema History of stress test Hypertension Hyponatremia Hypotension Hypothyroidism Insomnia Left arm weakness Lives in correction Lower GI bleeding Obstructive sleep apnea On home oxygen therapy Pain, chronic Paresthesias Physical debility Polyneuropathy Rectal prolapse Restless leg syndrome Seizure disorder Sleep apnea Smoker Spinal stenosis Spinal stenosis of lumbar region Stercoral ulcer of rectum Stress bladder incontinence, female Suicide attempt Takotsubo cardiomyopathy Vitamin D deficiency Home Medications fluticasone furoate 100 mcg-vilanterol 25 mcg/dose inhalation powder 2 puff inhalation DAILY COPD 05/13/20 [History Last Taken 03/04/23] oxcarbazepine 600 mg tablet 600 mg PO BID seizures #60 tabs 10/13/20 [Rx Last Taken 03/04/23] phenobarbital 32.4 mg tablet 32.4 mg PO BID seizures #60 tabs 10/13/20 [Rx Last Taken 03/04/23] cholecalciferol (vitamin D3) 1,250 mcg (50,000 unit) capsule 1,250 mcg PO WE supplement 10/20/20 [History Last Taken 03/02/23] multivitamin 1 tab PO DAILY supplement 10/20/20 [History Last Taken 03/04/23] methadone 10 mg tablet 10 mg PO TID chronic pain 5 days #15 tabs 10/25/20 [Rx Last Taken 03/04/23] nitroglycerin 0.4 mg sublingual tablet 0.4 mg sublingual Q5M PRN CHEST PAIN #30 tabs 01/21/21 [Rx Last Taken Unknown] atorvastatin 40 mg tablet 40 mg PO QHS CHOLESTEROL 04/07/21 [History Last Taken 03/03/23] levothyroxine 25 mcg tablet 25 mcg PO DAILY THYROID 04/07/21 [History Last Taken 03/04/23] pantoprazole 40 mg tablet,delayed release 40 mg PO BID #60 tabs 04/10/21 [Rx Last Taken 03/04/23] benztropine 2 mg tablet 2 mg PO TID tremor 08/06/21 [History Last Taken 03/04/23] bisacodyl 10 mg rectal suppository 10 mg WA DAILY PRN Constipation 08/06/21 [History Last Taken Unknown] magnesium hydroxide 400 mg/5 mL oral suspension (Milk of Magnesia) 30 ml PO DAILY PRN GI UPSET 08/06/21 [History Last Taken Unknown] duloxetine 30 mg capsule,delayed release sprinkle 20 mg PO BID 10/27/21 [History Last Taken 03/04/23] ferrous sulfate 325 mg (65 mg iron) tablet (FeroSul) 325 mg PO BID IRON 10/27/21 [History Last Taken 03/04/23] hydrocortisone 2.5 % topical cream 1 applic topical DAILY PRN Skin Cleansing 10/27/21 [History Last Taken Unknown] midodrine 10 mg tablet 10 mg PO TID #90 tabs 01/04/22 [Rx Last Taken 03/04/23] risperidone 0.5 mg tablet (Risperdal) 0.5 mg PO TID 04/12/22 [History Last Taken 03/03/23] lactulose 20 gram/30 mL oral solution 30 ml PO BID 12/03/22 [History Last Taken 03/04/23] netarsudil 0.02 % eye drops (Rhopressa) 1 drp EACH EYE QPM 12/03/22 [History Last Taken 03/03/23] psyllium husk (aspartame) 3.4 gram oral powder packet (Metamucil Fiber Singles) 1 packet PO BID 12/03/22 [History Last Taken 03/04/23] sertraline 100 mg tablet (Zoloft) 125 mg PO DAILY 12/03/22 [History Last Taken 03/03/23] acetaminophen 500 mg capsule 1,000 mg PO Q8H PRN pain 03/04/23 [History Last Taken 03/04/23] bimatoprost 0.01 % eye drops (Lumigan) 1 drp EACH EYE QPM 03/04/23 [History Last Taken 03/03/23] carboxymethylcellulose sodium 0.5 % eye drops (Refresh Tears) 1 drp EACH EYE BID 03/04/23 [History Last Taken 03/04/23] dicyclomine 10 mg capsule 10 mg PO BID DIVERTICULOSIS 03/04/23 [History Last Taken 03/04/23] lifitegrast 5 % eye drops in a dropperette (Xiidra) 1 drp EACH EYE BID 03/04/23 [History Last Taken 03/04/23] ropinirole 2 mg tablet 2 mg PO QHS legs 03/22/23 [History Last Taken Unknown] polyethylene glycol 3350 17 gram/dose oral powder (ClearLax) 17 g PO DAILY 08/19/23 [History Last Taken Unknown] potassium chloride 20 mEq tablet,extended release(part/cryst) 40 meq PO BID supplement 08/19/23 [History Last Taken Unknown] sucralfate 100 mg/mL oral suspension (Carafate) 1 g PO BID 08/19/23 [History Last Taken Unknown] umeclidinium 62.5 mcg/actuation blister powder for inhalation (Incruse Ellipta) 1 inh inhalation DAILY 08/19/23 [History Last Taken Unknown] Allergy/AdvReac Type Severity Reaction Status Date / Time codeine Allergy Mild HIVES Verified 08/19/23 14:40 corn Allergy Hives Verified 08/19/23 14:40 Penicillins Allergy Anaphylaxis Verified 08/19/23 14:40 Family History Mother Diabetes Heart disease Hypertension CAD (coronary artery disease) CVA (cerebral vascular accident) Thyroid disorder Father Colon cancer Surgical History History of bilateral carpal tunnel release History of bilateral cataract extraction History of blepharoplasty History of cystoscopy History of esophagogastroduodenoscopy (EGD) (~03/07/19) History of left heart catheterization (01/16/21) History of right hip replacement History of right salpingo-oophorectomy Hx of colonoscopy S/P appendectomy S/P laparoscopic cholecystectomy Status post ORIF of fracture of ankle Social History household members: none housing: correction number of children: 1 pets and animals: Yes (cat) pets and animals: cat(s) Smoking Status: Former smoker Tobacco: How many years used: 50 alcohol intake: never substance use type: does not use well-balanced diet: rarely or never caffeine: No do you feel safe at home: Yes ROS Review of Systems ROS Unobtainable: due to mental status Physical Exam Const General Appearance: ill appearing and frail Nutritional Appearance: cachectic HEENT normocephalic Eyes PERRL Resp normal respiratory effort Cardio Rate: tachycardic GI soft to palpation Inspection: abdominal distention Bladder / Kidney Exam: catheter in place Lab / Micro Data 08/19/23 14:58 08/19/23 14:58 Labs: Laboratory Results - last 24 hr 08/19/23 14:58: WBC 23.1 H, RBC 3.85 L, Hgb 10.8 L, Hct 36.7 L, MCV 95.3, MCH 28.1, MCHC 29.4 L, RDW Std Deviation 52.3 H, RDW Coeff of Jordin 15.0 H, Plt Count 548 H, MPV 8.6, Immature Gran % (Auto) 1.000 H, Neut % (Auto) 85.4 H, Lymph % (Auto) 5.8 L, Mccracken % (Auto) 7.2, Eos % (Auto) 0.3, Baso % (Auto) 0.3, Absolute Neuts (auto) 19.7 H, Absolute Lymphs (auto) 1.34, Nucleated RBC % 0, Differential Comment SCANNED, Diff Path Review October, PT 17.7 H, INR 1.5, APTT 46.2 H, Sodium 147 H, Potassium 5.2 H, Chloride 119 H, Carbon Dioxide 20.0 L, Anion Gap 8, BUN 40 H, Creatinine 1.24 H, Estim Creat Clear Calc 36.36, Est GFR (MDRD) Af Amer 54 L, Est GFR (MDRD) Non-Af 45 L, BUN/Creatinine Ratio 32.3 H, Glucose 245 H, Lactic Acid 1.3, Calcium 8.4 L, Total Bilirubin 0.60, AST 64 H, ALT 25, Alkaline Phosphatase 121 H, Total Protein 6.4, Albumin 1.9 L, Globulin 4.5 H, Albumin/Globulin Ratio 0.4 L 08/19/23 15:20: Urine Color Yellow, Urine Clarity Clear, Urine pH 5.0, Ur Specific [place] 1.015, Urine Protein 15 H, Urine Glucose (UA) Normal, Urine Ketones 5 H, Urine Occult Blood 10 H, Urine Nitrite Negative, Urine Bilirubin 1 H, Urine Urobilinogen 1 H, Ur Leukocyte Esterase 25 H, Urine RBC 0 SEEN, Urine WBC 0-5 SEEN, Ur Squamous Epith Cells 0 SEEN, Urine Bacteria 0 SEEN, Urine Mucus 0 SEEN Micro: Microbiology 08/19/23 14:58 Mucosa - Nose SARS-CoV-2, Influenza & RSV (PCR) - Final Rhythm Strip Rhythm Strip: Sinus Tach Rate: 148 Ectopy: None Imaging Radiology Impression Chest X-Ray 08/19/23 15:35 IMPRESSION: No acute abnormality is seen. Electronically Signed: Isaias Munroe MD at 15:58 EST , Abdomen/Pelvis CT 08/19/23 16:10 IMPRESSION: Findings concerning for large bowel obstruction secondary to constipation. There is also questionable pneumatosis intestinalis seen in the ascending colon. This is concerning for impending perforation. Recommend surgical consultation. Obstructive uropathy most likely secondary to external compression from colon. Electronically Signed: Dorian Castle MD at 18:13 EST , ADDENDUM: 08/19/23 1826 IMPRESSION: Findings concerning for large bowel obstruction secondary to constipation. There is also questionable pneumatosis intestinalis seen in the ascending colon. This is concerning for impending perforation. Recommend surgical consultation. Obstructive uropathy most likely secondary to external compression from colon. N.B. : The above Results were Read Back by Dorian Castle MD to Driss Ortiz DO, and understanding confirmed on 08/19/2023 18:19:20 (ET). Electronically Signed: Dorian Castle MD at 18:13 EST , Brain CT 08/19/23 16:10 IMPRESSION: No acute intracranial abnormality. Chronic involutional and ischemic changes of the brain. Electronically Signed: Dorian Castle MD at 16:45 EST ,
--- OUTSIDE RECORDS SUMMARY | 2023-08-19 19:10 | XMS RPT_ITS | CCD ---
Author Name Unknown Address [address] [place] [address] [address] [place] [address] Organization [facility] Care Team Providers Care Wood Inspector Name Role Phone EDMUND NAVARRO DO Attending [...] sources) Codeine; Translations: [CODEINE] Drug Allergy 06-15-2005 [facility] Work Phone: (4 sources) Ethanol; Translations: [ALCOHOL, UNSPECIFIED] Drug Allergy 06-15-2005 [facility] Work Phone: (4 sources) Penicillins; Translations: [PENICILLINS] Propensity to adverse reactions 06-15-2005 [facility] Work Phone: Medications Completed/Discontinued Medications Medication [...] Provider Facility Start: 07-19-2023 End: 07-19-2023 ambulatory [facility] Facility:[facility] [place] Start: 04-25-2023 End: 04-25-2023 ambulatory [facility] Facility:[facility] [place] Start: 03-25-2023 Telephone encounter Mariana Stout Work Phone: Podiatry Procedures Date Procedure Procedure Detail Performing Clinician Start: 03-24-2023 Radex ankle complete minimum 3 views Mariana Cameron Work Phone: Plan of Treatment Date Care Activity Detail Author Start: 01-12-2029 Urine microalbumin profile DTaP,Tdap,Td Vaccine (3 - Td or Tdap) [facility] Start: 01-16-2024 Diabetes Screening Diabetes Screening [facility] Start: 02-18-2023 Covid-19 Vaccine ( season) Covid-19 Vaccine ( season) [facility] Start: 02-18-2023 Influenza vaccination Influenza Vaccine (#1) [facility] Start: 08-08-2022 Covid-19 Vaccine (4 - Pfizer series) Covid-19 Vaccine (4 - Pfizer series) [facility] Start: 06-20-2022 Advance Directive Discussion Advance Directive Discussion [facility] Start: 06-20-2022 Depression Assessment Depression Assessment [facility] Start: 2014 Bone Density Screening Bone Density Screening [facility] Start: 2009 RSV Vaccine (1 - 1-dose 60+ series) RSV Vaccine (1 - 1-dose 60+ series) [facility] Start: 07-05-2007 Mammography Mammogram Screening [facility] Start: 08-27-1999 Shingrix Vaccine (1 of 2) Shingrix Vaccine (1 of 2) [facility] Start: 1994 Cologuard (FIT-DNA) Cologuard (FIT-DNA) [facility] Start: 1994 Colonoscopy Colonoscopy [facility] Start: 1994 Colorectal Cancer Screening Colorectal Cancer Screening [facility] Start: [address] COLONOGRAPHY [facility] Start: 1994 Fecal Occult Blood Fecal Occult Blood [facility] Start: 1994 Lipid 1996 panel - Serum or Plasma Lipid Screening [facility] Start: 1994 SIGMOIDOSCOPY SIGMOIDOSCOPY [facility] Start: 1968 Urine microalbumin profile DTaP,Tdap,Td Vaccine (1 - Tdap) [facility] Start: 08-27-1967 Hepatitis C Screening Hepatitis C Screening [facility] Start: 08-27-1955 Pneumococcal Vaccine: 65+ (1 - PCV) Pneumococcal Vaccine: 65+ (1 - PCV) [facility] End: 04-24-2024 XR ANKLE GENERAL 3V AP/LAT/OBL LEFT XR ANKLE GENERAL 3V AP/LAT/OBL LEFT Radiology Routine Closed displaced fracture of metatarsal bone of left foot, unspecified metatarsal, initial encounter Closed nondisplaced fracture of medial malleolus of left tibia with routine healing, subsequent encounter 1 Occurrences starting 03/26/2023 until 04/24/2024 [facility] Work Phone: Immunizations Immunization Date Immunization Notes Care Provider Charisse casillas 04-08-2021 influenza virus vacc ine, unspecified formulation Mariana Cameron Work Phone: [facility] Payers Date Payer Category Payer Medicare [id number] 2022-Present [phone] [address] [place] [address] O [id number] 2022 Unknown [id number] 2022 Self-pay 2013 Medicaid [employer] [place] [employer] [facility] [facility] MEDICAID [id number] 2013-Present [phone] [address] [place] [address] Medicaid 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) [facility] Start: 03-24-2023 History of Social function [facility] Start: 03-24-2023 Area Deprivation Index [facility] National Score (1-10 0), lower number is lower risk 80 [facility] Start: 1950 Sex Assigned At Not on file C [facility] Clinical Notes 03-24-2023 to 07-19-2023 Telephone Encounter - Kaylyn Mcnally RN - 03/29/2023 11:28 AM EDTTelephone Encounter - Mariana Cameron - 03/26/2023 2:57 PM EDTTelephone Encounter - Kari Rodriguez LPN - 03/25/2023 3:15 PM EDT Note Date & Type Note Facility 07-19-2023 Note HNO ID: [id number] Author: MARIANA CAMERON, ? Service: ? Author [...] continue with assisted ambulation. Mariana Cameron DPM [facility] 07-19-2023 Note HNO ID: [id number] Author: CLEMENT LLOYD RN Service: ? Author Type: Registered Nurse Type: Progress Notes Filed: 07/19/2023 11:51 Note Text: Patient presents with: Left Ankle - Follow Up, Fracture She has XR to review. No pain. [facility] 07-19-2023 Note HNO ID: [id number] Author: ALEX VALDES RT(Jd) Service: Radiology Author [...] PATIENT PRESENTS WITH AN IMPLANTABLE OR ATTACHED DIGITAL PHOTOGRAPHIC PRINTER: No RADIOLOGY DEPARTMENT: General X-ray: Exam(s) Completed: Lower Extremity X-Ray(s): Ankle, Left and Foot, Left PERIPHERAL IV DATA: Not applicable SIGNED BY: RT Dale(R) July 19, 2023 12:00 PM [facility] 04-25-2023 Note HNO ID: [id number] Author: Mariana Cameron Service: ? Author Type: [...] in one mon (more content not included)... [facility] 04-25-2023 Note HNO ID: [id number] Author: Kari Rodriguez LPN Service: ? Author Type: LICENSED NURSE Type: Progress Notes Filed: 04/25/2023 3:35 PM Note Text: AMB ROOMING INTAKE FLOWSHEET DATA Risk Screening Do you have concerns about personal safety or safety in the home?: No Patient presents with: Left Foot - Established Patient, Follow Up, Fracture Kari Rodriguez LPN [facility] 04-25-2023 Note HNO ID: [id number] Author: Rita Dia RT(R) Service: ? Author [...] RT Iraj(R) April 25, 2023 1:45 PM [facility] 03-29-2023 Miscellaneous Notes Called patient-home number had busy signal Called [facility]. Spoke with Monserrat- Informed her of below [...] Mariana Cameron DPM documented in this encounter [facility] 03-24-2023 Note HNO ID: [id number] Author: Melody Griffin RT(R) Service: Radiology Author [...] RT Alfonso(R) March 24, 2023 10:37 AM [facility] 03-24-2023 Note HNO ID: [id number] Author: Mariana Cameron Service: ? Author Type: [...] rolled her left ankle She went to [facility]. Had xrays that were suggestive of medial [...] pain noted Radiographs: ordered. Reviewed xrays from [facility]. Nondisplaced medial malleolar fracture. Nondisplaced 3rd metatarsal fracture ASSESSMENT: (S92.302M) Closed nondisplaced fracture of metatarsal bone of left foot, unspecified metatarsal, initial encounter (primary encounter di (more content not included)... [facility] 03-24-2023 Note HNO ID: [id number] Author: Kari Rodriguez LPN Service: ? Author Type: LICENSED NURSE Type: Progress Notes Filed: 03/24/2023 11:05 AM Note Text: AMB ROOMING INTAKE FLOWSHEET DATA Pain Pain Level: 8 Pain Location: Ankle-Left Duration Amount of Time: 1 Duration Units: Months Frequency: Continuous Intervention/Comfort measure: Reposition, Relaxation, Splinting Patient presents with: Left Foot - New, Fracture, Pain Kari Rodriguez LPN [facility] 03-24-2023 History of Presen t illness Narrative [...] 2023 10:37 AM documented in this encounter [facility] 03-24-2023 History of Presen t illness Narrative Initial Podiatric Office Visit: Chief Complaint: This 72 year old female who presents with chief complaint:left ankle fracture HPI Patient presents to clinic for evaluation of left ankle She states sometime last month, she went to the bathroom and her foot got caught and she rolled her left ankle She went to [facility]. Had xrays that were suggestive of medial [...] pain noted Radiographs: ordered. Reviewed xrays from [facility]. Nondisplaced medial malleolar fracture. Nondisplaced 3rd metatarsal [...] Cameron DPM Podiatry [address] [place] [address] Dept: [phone] Dept AMB ROOMING INTAKE FLOWSHEET DATA Pain Pain Level: 8 Pain Location: Ankle-Left Duration Amount of Time: 1 Duration Units: Months Frequency: Continuous Intervention/Comfort measure: Reposition, Relaxation, Splinting Patient presents with: Left Foot - New, Fracture, Pain Kari Rodriguez LPN documented in this encounter [facility] Diagnosis Closed displaced fracture of metatarsal bone of left foot, unspecified metatarsal, initial encounter- Primary Closed nondisplaced fracture of medial malleolus of left tibia with routine healing, subsequent encounter documented [facility] Diagnosis Closed displaced fracture of metatarsal bone of left foot, unspecified metatarsal, initial encounter Closed nondisplaced fracture of medial malleolus of left tibia with routine healing, subsequent encounter documented [facility]ative)* Diagnostic Procedure Only (Routine) - Closed Specialty Diagnoses / Procedures Referred By Natali t Referred To Contact XR IMAGING Diagnoses Closed nondisplaced fracture of medial malleolus of left tibia with routine healing, subsequent encounter Procedures XR ANKLE GENERAL 3V AP/LAT/OBL LEFT RADEX ANKLE COMPLETE MINIMUM 3 VIEWS Mariana Cameron [address] [place] [address] [place] [address] Referral ID Status Reason Start Date Expiration Date V isits Requested Visits Authorized [id number] Closed Auto-Generate d Referral 03/24/2023 04/22/2024 1 1 * Diagnostic Procedure Only (Routine) - Closed Specialty Diagnoses / Procedures Referred By Contac t Referred To Contact XR IMAGING Diagnoses Closed displaced fracture of metatarsal bone of left foot, unspecified metatarsal, initial encounter Procedures XR FOOT GENERAL 3V AP/LAT/OBL LEFT RADEX FOOT COMPLETE MINIMUM 3 VIEWS Mariana Cameron[address] [place] [address] [place] [address] Referral ID Status Reason Start Date Expiration Date V isits Requested Visits Authorized [id number] Closed Auto-Generate d Referral 03/24/2023 04/22/2024 1 1 [facility] for referral (narrative)* Diagnostic Procedure Only (Routine) [...] 3 VIEWS Mariana Cameron[address] [place] [address] [place] [address] Referral ID Status Reason Start Date Expiration Date Visits Requested Visits Authorized [id number] Pending Review Auto-Generat ed Referral 03/26/2023 04/24/2024 [...] 3 VIEWS Mariana Cameron[address] [place] [address] [place] [address] Referral ID Status Reason Start Date Expiration Date Visits Requested Visits Authorized [id number] Pending Review Auto-Generat ed Referral 03/26/2023 04/24/2024 1 1 [facility] for referral (narrative)* Diagnostic Procedure Only (Routine) - Closed Specialty Diagnoses / Procedures Referred By Contac t Referred To Contact XR IMAGING Diagnoses Closed nondisplaced fracture of medial malleolus of left tibia with routine healing, subsequent encounter Procedures XR ANKLE GENERAL 3V AP/LAT/OBL LEFT RADEX ANKLE COMPLETE MINIMUM 3 VIEWS Mariana Cameron[address] [place] [address] [place] [address] Referral ID Status Reason Start Date Expiration Date V isits Requested Visits Authorized [id number] Closed Auto-Generate d Referral 03/24/2023 04/22/2024 1 1 * Diagnostic Procedure Only (Routine) - Closed Specialty Diagnoses / Procedures Referred By Contac t Referred To Contact XR IMAGING Diagnoses Closed displaced fracture of metatarsal bone of left foot, unspecified metatarsal, initial encounter Procedures XR FOOT GENERAL 3V AP/LAT/OBL LEFT RADEX FOOT COMPLETE MINIMUM 3 VIEWS Mariana Cameron[address] [place] [address] [place] [address] Referral ID Status Reason Start Date Expiration Date V isits Requested Visits Authorized [id number] Closed Auto-Generate d Referral 03/24/2023 04/22/2024 1 1 [facility] for visit Narrative* Diagnostic Procedure Only (Routine) - Closed Specialty Diagnoses / Procedures Referred By Contac t Referred To Contact XR IMAGING Diagnoses Closed nondisplaced fracture of medial malleolus of left tibia with routine healing, subsequent encounter Procedures XR ANKLE GENERAL 3V AP/LAT/OBL LEFT RADEX ANKLE COMPLETE MINIMUM 3 VIEWS Mariana Cameron [address] [place] [address] [place] [address] Referral ID Status Reason Start Date Expiration Date V isits Requested Visits Authorized [id number] Closed Auto-Generate d Referral 03/24/2023 04/22/2024 1 1 [facility] Summary Purpose Family History No Family [...] DATE CREATED AUTHOR AUTHOR'S ORGANIZ ATION 03/21/2022 [facility] DATE CREATED AUTHOR AUTHOR'S ORGANIZ ATION 03/22/2022 [facility] DATE CREATED AUTHOR AUTHOR'S ORGANIZ ATION 03/25/2022 [facility] ([place] DATE CREATED AUTHOR AUTHOR'S ORGANIZ ATION 07/22/2023 [facility] Source Comments (unrecognize d section and content) In the event this informatio n is protected by the Federal Confidentiality of Alcohol and Drug Abuse Patient Records regulations: The Federal rules restrict any use of the information to criminally investigate or prosecute any alcohol or drug abuse patient.[facility] the event this information is protected by the Federal Confidentiality of Alcohol and Drug Abuse Patient Records regulations: The Federal rules restrict any use of the information to criminally investigate or prosecute any alcohol or drug abuse patient.[facility] the event this information is protected by the Federal Confidentiality of Alcohol and Drug Abuse Patient Records regulations: The Federal rules restrict any use of the information to criminally investigate or prosecute any alcohol or drug abuse patient.[facility] Reason for Visit (unrecogniz ed section and content) Reason Comments Results Care Teams (unrecognized sec tion and content) Wood Inspector Relationship Specialty Start Date End Date Scarlett Veliz Chi PCP - General Family Medicine 05/23/12 Wood Inspector Relationship Specialty Start Date End Date Scarlett [...] BE BASED ON THE PRIMARY CLINICAL RECORDS. [facility]. provides no warranty or guarantee of the accuracy or completeness of information in this document.
--- NOTE | 2023-08-19 19:27 | PCM.HP.STD ---
HPI - General General Date of Admission: 08/19/23 Date of Service: 08/19/23 Chief Complaint: Decreased level of consciousness HPI Narrative XANDER RAMIREZ, is a 72 F who presents to the emergency room at [facility] after being sent in from a local extended care facility due to altered mental status and lethargy. Patient was evaluated in the emergency room, patient was nonverbal, she was minimally responsive to painful stimuli. She did not follow commands. Labs were drawn in the emergency room, her white blood cell count was elevated at 23.1, hemoglobin was 10.8, chemistry profile showed an increased sodium at 147, increased potassium at 5.2, increased chloride at 119, and elevated BUN at 40, and elevated creatinine of 1.24. Glucose was 245. AST was elevated at 64. CT of the brain was performed that showed no acute intracranial abnormality, chronic involutional and ischemic changes of brain were noted, CT of the abdomen pelvis was obtained, there were findings concerning for large bowel obstruction secondary to constipation and a questionable pneumatosis intestinalis seen in the ascending colon. There was also noted to be obstructive uropathy most likely secondary to external compression from the colon. General surgery was consulted and saw the patient in the emergency room, they attempted to disimpact her although she had a large amount of soft stool in her colon and there was no impaction noted. I discussed the case with general surgery and they advised using enemas to clear the patient, patient will be admitted due to her high temperature in the ER (103.6), she appears to be septic probably from urinary source although her urine does not indicate grossly that she has a urinary tract infection, I suspect she probably does. Her chest x-ray is unremarkable, it does not appear that she has an intra-abdominal source of infection. Patient is a DNR CC arrest with no intubation, she will be admitted to [facility], she will be given enemas, she will be placed on IV meropenem for presumed sepsis, blood cultures and urine cultures were obtained. Surgery will participate in her care. 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 Cardiology follow-up encounter Chronic constipation Chronic hypoxemic respiratory failure COPD (chronic obstructive pulmonary disease) Debility Degenerative disc disease, lumbar Depression Diverticulosis DVT (deep venous thrombosis) Epilepsy Essential tremor Extrapyramidal disorder Gastric reflux Gastritis Grade III hemorrhoids Hemorrhoids History of echocardiogram History of edema History of stress test Hypertension Hyponatremia Hypotension Hypothyroidism Insomnia Left arm weakness Lives in intermediate Lower GI bleeding Obstructive sleep apnea On home oxygen therapy Pain, chronic Paresthesias Physical debility Polyneuropathy Rectal prolapse Restless leg syndrome Seizure disorder Sleep apnea Smoker Spinal stenosis Spinal stenosis of lumbar region Stercoral ulcer of rectum Stress bladder incontinence, female Suicide attempt Takotsubo cardiomyopathy Vitamin D deficiency Home Medications fluticasone furoate 100 mcg-vilanterol 25 mcg/dose inhalation powder 2 puff inhalation DAILY COPD 05/13/20 [History Last Taken 03/04/23] oxcarbazepine 600 mg tablet 600 mg PO BID seizures #60 tabs 10/13/20 [Rx Last Taken 03/04/23] phenobarbital 32.4 mg tablet 32.4 mg PO BID seizures #60 tabs 10/13/20 [Rx Last Taken 03/04/23] cholecalciferol (vitamin D3) 1,250 mcg (50,000 unit) capsule 1,250 mcg PO WE supplement 10/20/20 [History Last Taken 03/02/23] multivitamin 1 tab PO DAILY supplement 10/20/20 [History Last Taken 03/04/23] methadone 10 mg tablet 10 mg PO TID chronic pain 5 days #15 tabs 10/25/20 [Rx Last Taken 03/04/23] nitroglycerin 0.4 mg sublingual tablet 0.4 mg sublingual Q5M PRN CHEST PAIN #30 tabs 01/21/21 [Rx Last Taken Unknown] atorvastatin 40 mg tablet 40 mg PO QHS CHOLESTEROL 04/07/21 [History Last Taken 03/03/23] levothyroxine 25 mcg tablet 25 mcg PO DAILY THYROID 04/07/21 [History Last Taken 03/04/23] pantoprazole 40 mg tablet,delayed release 40 mg PO BID #60 tabs 04/10/21 [Rx Last Taken 03/04/23] benztropine 2 mg tablet 2 mg PO TID tremor 08/06/21 [History Last Taken 03/04/23] bisacodyl 10 mg rectal suppository 10 mg ME DAILY PRN Constipation 08/06/21 [History Last Taken Unknown] magnesium hydroxide 400 mg/5 mL oral suspension (Milk of Magnesia) 30 ml PO DAILY PRN GI UPSET 08/06/21 [History Last Taken Unknown] duloxetine 30 mg capsule,delayed release sprinkle 20 mg PO BID 10/27/21 [History Last Taken 03/04/23] ferrous sulfate 325 mg (65 mg iron) tablet (FeroSul) 325 mg PO BID IRON 10/27/21 [History Last Taken 03/04/23] hydrocortisone 2.5 % topical cream 1 applic topical DAILY PRN Skin Cleansing 10/27/21 [History Last Taken Unknown] midodrine 10 mg tablet 10 mg PO TID #90 tabs 01/04/22 [Rx Last Taken 03/04/23] risperidone 0.5 mg tablet (Risperdal) 0.5 mg PO TID 04/12/22 [History Last Taken 03/03/23] lactulose 20 gram/30 mL oral solution 30 ml PO BID 12/03/22 [History Last Taken 03/04/23] netarsudil 0.02 % eye drops (Rhopressa) 1 drp EACH EYE QPM 12/03/22 [History Last Taken 03/03/23] psyllium husk (aspartame) 3.4 gram oral powder packet (Metamucil Fiber Singles) 1 packet PO BID 12/03/22 [History Last Taken 03/04/23] sertraline 100 mg tablet (Zoloft) 125 mg PO DAILY 12/03/22 [History Last Taken 03/03/23] acetaminophen 500 mg capsule 1,000 mg PO Q8H PRN pain 03/04/23 [History Last Taken 03/04/23] bimatoprost 0.01 % eye drops (Lumigan) 1 drp EACH EYE QPM 03/04/23 [History Last Taken 03/03/23] carboxymethylcellulose sodium 0.5 % eye drops (Refresh Tears) 1 drp EACH EYE BID 03/04/23 [History Last Taken 03/04/23] dicyclomine 10 mg capsule 10 mg PO BID DIVERTICULOSIS 03/04/23 [History Last Taken 03/04/23] lifitegrast 5 % eye drops in a dropperette (Xiidra) 1 drp EACH EYE BID 03/04/23 [History Last Taken 03/04/23] ropinirole 2 mg tablet 2 mg PO QHS legs 03/22/23 [History Last Taken Unknown] polyethylene glycol 3350 17 gram/dose oral powder (ClearLax) 17 g PO DAILY 08/19/23 [History Last Taken Unknown] potassium chloride 20 mEq tablet,extended release(part/cryst) 40 meq PO BID supplement 08/19/23 [History Last Taken Unknown] sucralfate 100 mg/mL oral suspension (Carafate) 1 g PO BID 08/19/23 [History Last Taken Unknown] umeclidinium 62.5 mcg/actuation blister powder for inhalation (Incruse Ellipta) 1 inh inhalation DAILY 08/19/23 [History Last Taken Unknown] Allergy/AdvReac Type Severity Reaction Status Date / Time codeine Allergy Mild HIVES Verified 08/19/23 14:40 corn Allergy Hives Verified 08/19/23 14:40 Penicillins Allergy Anaphylaxis Verified 08/19/23 14:40 Family History Mother Diabetes Heart disease Hypertension CAD (coronary artery disease) CVA (cerebral vascular accident) Thyroid disorder Father Colon cancer Surgical History History of bilateral carpal tunnel release History of bilateral cataract extraction History of blepharoplasty History of cystoscopy History of esophagogastroduodenoscopy (EGD) (~03/07/19) History of left heart catheterization (01/16/21) History of right hip replacement History of right salpingo-oophorectomy Hx of colonoscopy S/P appendectomy S/P laparoscopic cholecystectomy Status post ORIF of fracture of ankle Social History household members: none housing: intermediate number of children: 1 pets and animals: Yes (cat) pets and animals: cat(s) Smoking Status: Former smoker Tobacco: How many years used: 50 alcohol intake: never substance use type: does not use well-balanced diet: rarely or never caffeine: No do you feel safe at home: Yes ROS ROS Narrative Review of systems was not performed due to encephalopathy Review of Systems ROS Unobtainable: due to mental condition Vital Signs Vital Signs Vital Signs: 08/19/23 14:40 08/19/23 14:45 08/19/23 15:15 Temperature 100 F H 100 F H Temperature Source Temporal Temporal Pulse Rate 149 H 148 H Respiratory Rate 23 H 27 H Blood Pressure 128/76 H 128/76 H Blood Pressure Mean 93 93 Pulse Ox 97 95 Oxygen Delivery Method Nasal Cannula Nasal Cannula Nasal Cannula Oxygen Flow Rate (L/min) 3 3 3 08/19/23 15:30 08/19/23 15:44 08/19/23 15:44 Temperature 103.6 F H 103.6 F H Temperature Source Core Core Pulse Rate 144 H 139 H 138 H Respiratory Rate 21 H 23 H 23 H Blood Pressure 118/63 107/83 H 107/83 H Blood Pressure Mean 81 91 91 Pulse Ox 98 99 99 Oxygen Delivery Method Room Air Nasal Cannula Room Air Oxygen Flow Rate (L/min) 3 08/19/23 16:00 08/19/23 16:48 08/19/23 17:00 Temperature 102.7 F H 101.8 F H 101.6 F H Temperature Source Core Core Core Pulse Rate 135 H 123 H 119 H Respiratory Rate 20 H 20 H 20 H Blood Pressure 107/74 107/66 111/68 Blood Pressure Mean 85 79 82 Pulse Ox 99 97 97 Oxygen Delivery Method Room Air Room Air Room Air Oxygen Flow Rate (L/min) 08/19/23 18:00 08/19/23 18:17 Temperature 100.6 F H Temperature Source Core Pulse Rate 117 H 119 H Respiratory Rate 17 15 Blood Pressure 117/71 111/60 Blood Pressure Mean 86 77 Pulse Ox 95 97 Oxygen Delivery Method Room Air Room Air Oxygen Flow Rate (L/min) Weight Weight: 64.4 kg Body Mass Index (BMI) 23.6 Physical Exam Const no apparent distress Constitutional Narrative: Patient is frail and ill-appearing, she looks cachectic, she responds only to painful stimuli and does not verbalize. HEENT normocephalic, head/scalp atraumatic and moist oral mucous membranes Eyes PERRL, EOMs intact bilaterally and conjunctivae normal Neck supple, no JVD, thyroid normal and no carotid bruits General: trachea midline Resp normal respiratory effort, no retractions and clear to auscultation bilaterally Auscultation: Negative for rales, rhonchi or wheezes Cardio regular rate, regular rhythm, S1 normal heart sound, S2 normal heart sound, no murmurs, no rub and no gallops Cardio Narrative: Heart rate and rhythm is tachycardic GI normal to inspection, nondistended, normoactive bowel sounds, soft to palpation, non-tender and non-distended Extremity no clubbing, cyanosis or edema Skin no rashes or lesions noted General Skin Exam: no breakdown Neuro CN's II-XII intact bilaterally Neuro Narrative: Patient is lethargic, she is nonverbal, she does respond to painful stimuli by withdrawing, she does not respond to verbal stimuli Psych Psych Narrative: Patient is lethargic, she is nonverbal Results Lab / Micro Data 08/19/23 14:58 08/19/23 14:58 Labs: Laboratory Results - last 24 hr 08/19/23 14:58: WBC 23.1 H, RBC 3.85 L, Hgb 10.8 L, Hct 36.7 L, MCV 95.3, MCH 28.1, MCHC 29.4 L, RDW Std Deviation 52.3 H, RDW Coeff of Jordin 15.0 H, Plt Count 548 H, MPV 8.6, Immature Gran % (Auto) 1.000 H, Neut % (Auto) 85.4 H, Lymph % (Auto) 5.8 L, Bell % (Auto) 7.2, Eos % (Auto) 0.3, Baso % (Auto) 0.3, Absolute Neuts (auto) 19.7 H, Absolute Lymphs (auto) 1.34, Nucleated RBC % 0, Differential Comment SCANNED, Diff Path Review October, PT 17.7 H, INR 1.5, APTT 46.2 H, Sodium 147 H, Potassium 5.2 H, Chloride 119 H, Carbon Dioxide 20.0 L, Anion Gap 8, BUN 40 H, Creatinine 1.24 H, Estim Creat Clear Calc 36.36, Est GFR (MDRD) Af Amer 54 L, Est GFR (MDRD) Non-Af 45 L, BUN/Creatinine Ratio 32.3 H, Glucose 245 H, Lactic Acid 1.3, Calcium 8.4 L, Total Bilirubin 0.60, AST 64 H, ALT 25, Alkaline Phosphatase 121 H, Total Protein 6.4, Albumin 1.9 L, Globulin 4.5 H, Albumin/Globulin Ratio 0.4 L 08/19/23 15:20: Urine Color Yellow, Urine Clarity Clear, Urine pH 5.0, Ur Specific [place] 1.015, Urine Protein 15 H, Urine Glucose (UA) Normal, Urine Ketones 5 H, Urine Occult Blood 10 H, Urine Nitrite Negative, Urine Bilirubin 1 H, Urine Urobilinogen 1 H, Ur Leukocyte Esterase 25 H, Urine RBC 0 SEEN, Urine WBC 0-5 SEEN, Ur Squamous Epith Cells 0 SEEN, Urine Bacteria 0 SEEN, Urine Mucus 0 SEEN Micro: Microbiology 08/19/23 14:58 Mucosa - Nose SARS-CoV-2, Influenza & RSV (PCR) - Final Rhythm Strip Rhythm Strip: Sinus Tach Rate: 148 Ectopy: None Imaging Radiology Impression Chest X-Ray 08/19/23 15:35 IMPRESSION: No acute abnormality is seen. Electronically Signed: Isaias Munroe MD at 15:58 EST , Abdomen/Pelvis CT 08/19/23 16:10 IMPRESSION: Findings concerning for large bowel obstruction secondary to constipation. There is also questionable pneumatosis intestinalis seen in the ascending colon. This is concerning for impending perforation. Recommend surgical consultation. Obstructive uropathy most likely secondary to external compression from colon. Electronically Signed: Dorian Castle MD at 18:13 EST , ADDENDUM: 08/19/23 1826 IMPRESSION: Findings concerning for large bowel obstruction secondary to constipation. There is also questionable pneumatosis intestinalis seen in the ascending colon. This is concerning for impending perforation. Recommend surgical consultation. Obstructive uropathy most likely secondary to external compression from colon. N.B. : The above Results were Read Back by Dorian Castle MD to Driss Ortzi DO, and understanding confirmed on 08/19/2023 18:19:20 (ET). Electronically Signed: Dorian Castle MD at 18:13 EST , Brain CT 08/19/23 16:10 IMPRESSION: No acute intracranial abnormality. Chronic involutional and ischemic changes of the brain. Electronically Signed: Dorian Castle MD at 16:45 EST , Assessment & Plan Assessment/Plan (1) Constipation: PLAN: Plan 1. Sepsis-believed secondary to urinary tract infection, patient will be admitted to [place] [id number], she received Rocephin in the emergency room, I will broaden her antibiotic coverage by giving her meropenem. Again patient is a DNR CC arrest without intubation #2 severe obstipation/constipation-patient will be given fleets enema if this does not work she will need to be given soapsuds enema. General surgery is participating in her care, I do not believe patient has a bowel obstruction. #3 dehydration-patient appears grossly dehydrated with an elevated chloride and sodium as well as an elevated BUN and creatinine. I will give the patient IV fluids and recheck labs tomorrow #4 seizure disorder-patient will be kept on her seizure medications that she takes at the intermediate #5 hypothyroidism-patient will remain on Synthroid #6 chronic pain-patient is on methadone at the intermediate on a program basis, I will lower the dose to 5 mg 3 times daily #7 metabolic encephalopathy-probably secondary to an overlay of sepsis and underlying dementia-I talked to the intermediate, patient is usually only oriented as to self. #8 chronic depression-patient will remain on her intermediate medications #9 hyperlipidemia-patient is on atorvastatin Total clinical time spent by myself addressing the patient's medical issues, reviewing all of her data, and collaborating with patient's care team: 75 minutes Charges/Coding Visit Charges Inpatient E&M: 29705 Init Hosp L3
--- OUTSIDE RECORDS SUMMARY | 2023-08-19 20:16 | XMS RPT_ITS | CCD ---
Author Name Unknown Address [address] [place] [address] [address] [place] [address] Organization [facility] Care Team Providers Care Patient Representative Name Role Phone EDMUND NAVARRO DO Attending [...] sources) Codeine; Translations: [CODEINE] Drug Allergy 06-15-2005 [facility] Work Phone: (4 sources) Ethanol; Translations: [ALCOHOL, UNSPECIFIED] Drug Allergy 06-15-2005 [facility] Work Phone: (4 sources) Penicillins; Translations: [PENICILLINS] Propensity to adverse reactions 06-15-2005 [facility] Work Phone: Medications Completed/Discontinued Medications Medication Drug [...] Provider Facility Start: 07-19-2023 End: 07-19-2023 ambulatory [facility] Facility:[facility] Start: 04-25-2023 End: 04-25-2023 ambulatory [facility] Facility:[facility] Start: 03-25-2023 Telephone encounter Mariana Stout Work Phone: Podiatry Procedures Date Procedure Procedure Detail Performing Clinician Start: 03-24-2023 Radex ankle complete minimum 3 views Mariana Cameron Work Phone: Plan of Treatment Date Care Activity Detail Author Start: 01-12-2029 Urine microalbumin profile DTaP,Tdap,Td Vaccine (3 - Td or Tdap) [facility] Start: 01-16-2024 Diabetes Screening Diabetes Screening [facility] Start: 02-18-2023 Covid-19 Vaccine ( season) Covid-19 Vaccine ( season) [facility] Start: 02-18-2023 Influenza vaccination Influenza Vaccine (#1) [facility] Start: 08-08-2022 Covid-19 Vaccine (4 - Pfizer series) Covid-19 Vaccine (4 - Pfizer series) [facility] Start: 06-20-2022 Advance Directive Discussion Advance Directive Discussion [facility] Start: 06-20-2022 Depression Assessment Depression Assessment [facility] Start: 2014 Bone Density Screening Bone Density Screening [facility] Start: 2009 RSV Vaccine (1 - 1-dose 60+ series) RSV Vaccine (1 - 1-dose 60+ series) [facility] Start: 07-05-2007 Mammography Mammogram Screening [facility] Start: 08-27-1999 Shingrix Vaccine (1 of 2) Shingrix Vaccine (1 of 2) [facility] Start: 1994 Cologuard (FIT-DNA) Cologuard (FIT-DNA) [facility] Start: 1994 Colonoscopy Colonoscopy [facility] Start: 1994 Colorectal Cancer Screening Colorectal Cancer Screening [facility] Start: [address] COLONOGRAPHY [facility] Start: 1994 Fecal Occult Blood Fecal Occult Blood [facility] Start: 1994 Lipid 1996 panel - Serum or Plasma Lipid Screening [facility] Start: 1994 SIGMOIDOSCOPY SIGMOIDOSCOPY [facility] Start: 1968 Urine microalbumin profile DTaP,Tdap,Td Vaccine (1 - Tdap) [facility] Start: 08-27-1967 Hepatitis C Screening Hepatitis C Screening [facility] Start: 08-27-1955 Pneumococcal Vaccine: 65+ (1 - PCV) Pneumococcal Vaccine: 65+ (1 - PCV) [facility] End: 04-24-2024 XR ANKLE GENERAL 3V AP/LAT/OBL LEFT XR ANKLE GENERAL 3V AP/LAT/OBL LEFT Radiology Routine Closed displaced fracture of metatarsal bone of left foot, unspecified metatarsal, initial encounter Closed nondisplaced fracture of medial malleolus of left tibia with routine healing, subsequent encounter 1 Occurrences starting 03/26/2023 until 04/24/2024 [facility] Work Phone: Immunizations Immunization Date Immunization Notes Care Provider Charisse casillas 04-08-2021 influenza virus vacc ine, unspecified formulation Mariana Cameron Work Phone: [facility] Payers Date Payer Category Payer Medicare DEVOTED MEDICARE [facility] [id number] 2022-Present [phone] [address] [place] [address] O [id number] 2022 Unknown [id number] 2022 Self-pay 2013 Medicaid [facility] MEDIC AID [facility] MEDICAID [id number] 2013-Present [phone] [address] [place] [address] Medicaid 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) [facility] Start: 03-24-2023 History of Social function [facility] Start: 03-24-2023 Area Deprivation Index [facility] National Score (1-10 0), lower number is lower risk 80 [facility] Start: 1950 Sex Assigned At Not on file C [facility] Clinical Notes 03-24-2023 to 07-19-2023 Telephone Encounter - Kaylyn Mcnally RN - 03/29/2023 11:28 AM EDTTelephone Encounter - Mariana Cameron - 03/26/2023 2:57 PM EDTTelephone Encounter - Kari Rodriguez LPN - 03/25/2023 3:15 PM EDT Note Date & Type Note Facility 07-19-2023 Note HNO ID: [id number] Author: MARIANA CAMERON, ? Service: ? Author [...] continue with assisted ambulation. Mariana Cameron DPM [facility] 07-19-2023 Note HNO ID: [id number] Author: CLEMENT LLOYD RN Service: ? Author Type: Registered Nurse Type: Progress Notes Filed: 07/19/2023 11:51 Note Text: Patient presents with: Left Ankle - Follow Up, Fracture She has XR to review. No pain. 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 Author Type: [...] in one mon (more content not included)... [facility] 04-25-2023 Note HNO ID: [id number] Author: Kari Rodriguez LPN Service: ? Author Type: LICENSED NURSE Type: Progress Notes Filed: 04/25/2023 3:35 PM Note Text: AMB ROOMING INTAKE FLOWSHEET DATA Risk Screening Do you have concerns about personal safety or safety in the home?: No Patient presents with: Left Foot - Established Patient, Follow Up, Fracture Kari Rodriguez LPN [facility] 04-25-2023 Note HNO ID: [id number] Author: Rita Dia RT(R) Service: ? Author [...] RT Iraj(R) April 25, 2023 1:45 PM [facility] 03-29-2023 Miscellaneous Notes Called patient-home number had busy signal Called [facility]. Spoke with Monserrat- Informed her of below [...] Mariana Cameron DPM documented in this encounter [facility] 03-24-2023 Note HNO ID: [id number] Author: Melody Griffin RT(R) Service: Radiology Author [...] RT Alfonso(R) March 24, 2023 10:37 AM [facility] 03-24-2023 Note HNO ID: [id number] Author: Mariana Cameron Service: ? Author Type: [...] rolled her left ankle She went to [facility]. Had xrays that were suggestive of [...] pain noted Radiographs: ordered. Reviewed xrays from [facility]. Nondisplaced medial malleolar fracture. Nondisplaced 3rd metatarsal fracture ASSESSMENT: (S92.302U) Closed nondisplaced fracture of metatarsal bone of left foot, unspecified metatarsal, initial encounter (primary encounter di (more content not included)... [facility] 03-24-2023 Note HNO ID: [id number] Author: Kari Rodriguez LPN Service: ? Author Type: LICENSED NURSE Type: Progress Notes Filed: 03/24/2023 11:05 AM Note Text: AMB ROOMING INTAKE FLOWSHEET DATA Pain Pain Level: 8 Pain Location: Ankle-Left Duration Amount of Time: 1 Duration Units: Months Frequency: Continuous Intervention/Comfort measure: Reposition, Relaxation, Splinting Patient presents with: Left Foot - New, Fracture, Pain Kari Rodriguez LPN [facility] 03-24-2023 History of Presen t illness [...] 2023 10:37 AM documented in this encounter [facility] 03-24-2023 History of Presen t illness Narrative Initial Podiatric Office Visit: Chief Complaint: This 72 year old female who presents with chief complaint:left ankle fracture HPI Patient presents to clinic for evaluation of left ankle She states sometime last month, she went to the bathroom and her foot got caught and she rolled her left ankle She went to [facility]. Had xrays that were suggestive of [...] pain noted Radiographs: ordered. Reviewed xrays from [facility]. Nondisplaced medial malleolar fracture. Nondisplaced 3rd [...] Cameron DPM Podiatry [address] [place] [address] Dept: [phone] Dept AMB ROOMING INTAKE FLOWSHEET DATA Pain Pain Level: 8 Pain Location: Ankle-Left Duration Amount of Time: 1 Duration Units: Months Frequency: Continuous Intervention/Comfort measure: Reposition, Relaxation, Splinting Patient presents with: Left Foot - New, Fracture, Pain Kari Rodriguez LPN documented in this encounter [facility] Diagnosis Closed displaced fracture of metatarsal bone of left foot, unspecified metatarsal, initial encounter- Primary Closed nondisplaced fracture of medial malleolus of left tibia with routine healing, subsequent encounter [facility] Diagnosis Closed displaced fracture of metatarsal bone of left foot, unspecified metatarsal, initial encounter Closed nondisplaced fracture of medial malleolus of left tibia with routine healing, subsequent encounter [facility] Diagnostic Procedure Only (Routine) - Closed Specialty Diagnoses / Procedures Referred By Natali t Referred To Contact XR IMAGING Diagnoses Closed nondisplaced fracture of medial malleolus of left tibia with routine healing, subsequent encounter Procedures XR ANKLE GENERAL 3V AP/LAT/OBL LEFT RADEX ANKLE COMPLETE MINIMUM 3 VIEWS Mariana Cameron [address] [place] [address] [place] [address] Referral ID Status Reason Start Date Expiration Date V isits Requested Visits Authorized [id number] Closed Auto-Generate d Referral 03/24/2023 04/22/2024 1 1 * Diagnostic Procedure Only (Routine) - Closed Specialty Diagnoses / Procedures Referred By Contac t Referred To Contact XR IMAGING Diagnoses Closed displaced fracture of metatarsal bone of left foot, unspecified metatarsal, initial encounter Procedures XR FOOT GENERAL 3V AP/LAT/OBL LEFT RADEX FOOT COMPLETE MINIMUM 3 VIEWS Mariana Cameron[address] [place] [address] [place] [address] Referral ID Status Reason Start Date Expiration Date V isits Requested Visits Authorized [id number] Closed Auto-Generate d Referral 03/24/2023 04/22/2024 1 1 [facility] for referral (narrative)* Diagnostic Procedure Only (Routine) [...] 3 VIEWS Mariana Cameron[address] [place] [address] [place] [address] Referral ID Status Reason Start Date Expiration Date Visits Requested Visits Authorized [id number] Pending Review Auto-Generat ed Referral 03/26/2023 04/24/2024 [...] 3 VIEWS Mariana Cameron[address] [place] [address] [place] [address] Referral ID Status Reason Start Date Expiration Date Visits Requested Visits Authorized [id number] Pending Review Auto-Generat ed Referral 03/26/2023 04/24/2024 1 1 [facility] for referral (narrative)* Diagnostic Procedure Only (Routine) - Closed Specialty Diagnoses / Procedures Referred By Contac t Referred To Contact XR IMAGING Diagnoses Closed nondisplaced fracture of medial malleolus of left tibia with routine healing, subsequent encounter Procedures XR ANKLE GENERAL 3V AP/LAT/OBL LEFT RADEX ANKLE COMPLETE MINIMUM 3 VIEWS Mariana Cameron[address] [place] [address] [place] [address] Referral ID Status Reason Start Date Expiration Date V isits Requested Visits Authorized [id number] Closed Auto-Generate d Referral 03/24/2023 04/22/2024 1 1 * Diagnostic Procedure Only (Routine) - Closed Specialty Diagnoses / Procedures Referred By Contac t Referred To Contact XR IMAGING Diagnoses Closed displaced fracture of metatarsal bone of left foot, unspecified metatarsal, initial encounter Procedures XR FOOT GENERAL 3V AP/LAT/OBL LEFT RADEX FOOT COMPLETE MINIMUM 3 VIEWS Mariana Cameron[address] [place] [address] [place] [address] Referral ID Status Reason Start Date Expiration Date V isits Requested Visits Authorized [id number] Closed Auto-Generate d Referral 03/24/2023 04/22/2024 1 1 [facility] for visit Narrative* Diagnostic Procedure Only (Routine) - Closed Specialty Diagnoses / Procedures Referred By Contac t Referred To Contact XR IMAGING Diagnoses Closed nondisplaced fracture of medial malleolus of left tibia with routine healing, subsequent encounter Procedures XR ANKLE GENERAL 3V AP/LAT/OBL LEFT RADEX ANKLE COMPLETE MINIMUM 3 VIEWS Mariana Cameron [address] [place] [address] [place] [address] Referral ID Status Reason Start Date Expiration Date V isits Requested Visits Authorized [id number] Closed Auto-Generate d Referral 03/24/2023 04/22/2024 1 1 [facility] Summary Purpose Family History No Family History [...] DATE CREATED AUTHOR AUTHOR'S ORGANIZ ATION 03/21/2022 [facility] DATE CREATED AUTHOR AUTHOR'S ORGANIZ ATION 03/22/2022 [facility] DATE CREATED AUTHOR AUTHOR'S ORGANIZ ATION 03/25/2022 [facility] ([place]) DATE CREATED AUTHOR AUTHOR'S ORGANIZ ATION 07/22/2023 [facility] Source Comments (unrecognize d section and content) In the event this informatio n is protected by the Federal Confidentiality of Alcohol and Drug Abuse Patient Records regulations: The Federal rules restrict any use of the information to criminally investigate or prosecute any alcohol or drug abuse patient.[facility] the event this information is protected by the Federal Confidentiality of Alcohol and Drug Abuse Patient Records regulations: The Federal rules restrict any use of the information to criminally investigate or prosecute any alcohol or drug abuse patient.[facility] System[facility] the event this information is protected by the Federal Confidentiality of Alcohol and Drug Abuse Patient Records regulations: The Federal rules restrict any use of the information to criminally investigate or prosecute any alcohol or drug abuse patient.[facility] Reason for Visit (unrecogniz ed section and content) Reason Comments Results Care Teams (unrecognized sec tion and content) Patient Representative Relationship Specialty Start Date End Date Scarlett Veliz Chi PCP - General Family Medicine 05/23/12 Patient Representative Relationship Specialty Start Date End Date Scarlett [...] BE BASED ON THE PRIMARY CLINICAL RECORDS. [facility] [employer] [facility]. provides no warranty or guarantee of the accuracy or completeness of information in this document.
[2023-08-19] MEDS: 0.9% Normal Saline (1000mL) 1,000 ML 125 ML IV (20:32)
[2023-08-19] MEDS: Phenobarbital Sodium 65 MG/ML Vial 32.5 MG IM (22:40)
[2023-08-19] MEDS: Meropenem 1 GM in 0.9% Normal Saline (100mL MB+) 100 ML IV (22:42)
[2023-08-19] MEDS: Heparin Injection (Vial) 5,000 UNIT/ML VIAL 5000 UNIT SC (22:43)
[2023-08-19] MEDS: Fleet Enema 133 ML RC (22:46)
[2023-08-19] MEDS: Latanoprost 0.005% 1 Bottle 1 DRP EACH EYE (22:47)
[2023-08-19] MEDS: CARBOXYMETHYLCELLULOSE SODIUM 1 DRP DROPS OPHTHALMIC (22:48)
[2023-08-20] VITALS (12 sets, daily range): BP systolic 95–134; BP diastolic 60–85; PULSE 80–140; RESP 18–30; TEMP 36.3–37.8; O2SAT 92–99
[2023-08-20] MEDS: 0.9% Normal Saline (1000mL) 1,000 ML 125 ML IV (06:46)
--- NOTE | 2023-08-20 07:19 | PN.HOSP_ITS ---
Reason for Visit Reason for Visit: Diagnoses Ileus, unspecified (08/19/23) Constipation, unspecified (08/19/23) Subjective Subjective Non-verbal, but awake. Objective Data Objective Data Vital Signs: Vital Signs Temp Pulse Resp BP Pulse Ox O2 Del Method O2 Flow Rate 36.5 C L 120 H 18 130/85 H 94 Nasal Cannula 2 08/20/23 06:46 08/20/23 06:46 08/20/23 06:46 08/20/23 06:46 08/20/23 06:46 08/20/23 06:46 08/20/23 06:46 Oxygen Flow Rate (L/min) 2 Oxygen Delivery Method Nasal Cannula Weight: 62.4 kg Body Mass Index (BMI) 22.8 Intake & Output: Intake and Output for Last 24 Hours 08/18/23 08/19/23 08/20/23 23:59 23:59 23:59 Intake Total 2320.83 / 2320.83 672.08 / 672.08 Output Total 1000 / 1000 400 / 400 Balance 1320.83 / 1320.83 272.08 / 272.08 Lab / Micro Data 08/19/23 14:58 08/19/23 14:58 Labs: Laboratory Results - last 24 hr 08/19/23 14:58: WBC 23.1 H, RBC 3.85 L, Hgb 10.8 L, Hct 36.7 L, MCV 95.3, MCH 28.1, MCHC 29.4 L, RDW Std Deviation 52.3 H, RDW Coeff of Jordin 15.0 H, Plt Count 548 H, MPV 8.6, Immature Gran % (Auto) 1.000 H, Neut % (Auto) 85.4 H, Lymph % (Auto) 5.8 L, [place] % (Auto) 7.2, Eos % (Auto) 0.3, Baso % (Auto) 0.3, Absolute Neuts (auto) 19.7 H, Absolute Lymphs (auto) 1.34, Nucleated RBC % 0, Differential Comment SCANNED, Diff Path Review October, PT 17.7 H, INR 1.5, APTT 46.2 H, Sodium 147 H, Potassium 5.2 H, Chloride 119 H, Carbon Dioxide 20.0 L, Anion Gap 8, BUN 40 H, Creatinine 1.24 H, Estim Creat Clear Calc 36.36, Est GFR (MDRD) Af Amer 54 L, Est GFR (MDRD) Non-Af 45 L, BUN/Creatinine Ratio 32.3 H , Glucose 245 H, Lactic Acid 1.3, Calcium 8.4 L, Total Bilirubin 0.60, AST 64 H, ALT 25, Alkaline Phosphatase 121 H, Total Protein 6.4, Albumin 1.9 L, Globulin 4.5 H, Albumin/Globulin Ratio 0.4 L 08/19/23 15:20: Urine Color Yellow, Urine Clarity Clear, Urine pH 5.0, Ur Specific [place] 1.015, Urine Protein 15 H, Urine Glucose (UA) Normal, Urine Ketones 5 H, Urine Occult Blood 10 H, Urine Nitrite Negative, Urine Bilirubin 1 H, Urine Urobilinogen 1 H, Ur Leukocyte Esterase 25 H, Urine RBC 0 SEEN, Urine WBC 0-5 SEEN, Ur Squamous Epith Cells 0 SEEN, Urine Bacteria 0 SEEN, Urine Mucus 0 SEEN Micro: Microbiology 08/19/23 14:58 Mucosa - Nose SARS-CoV-2, Influenza & RSV (PCR) - Final Radiography Diagnostic Testing: Radiology Impression Chest X-Ray 08/19/23 15:35 IMPRESSION: No acute abnormality is seen. Electronically Signed: Isaias Munroe MD at 15:58 EST , Abdomen/Pelvis CT 08/19/23 16:10 IMPRESSION: Findings concerning for large bowel obstruction secondary to constipation. There is also questionable pneumatosis intestinalis seen in the ascending colon. This is concerning for impending perforation. Recommend surgical consultation. Obstructive uropathy most likely secondary to external compression from colon. Electronically Signed: Dorian Castle MD at 18:13 EST , ADDENDUM: 08/19/23 1826 IMPRESSION: Findings concerning for large bowel obstruction secondary to constipation. There is also questionable pneumatosis intestinalis seen in the ascending colon. This is concerning for impending perforation. Recommend surgical consultation. Obstructive uropathy most likely secondary to external compression from colon. N.B. : The above Results were Read Back by Dorian Castle MD to Driss Ortiz DO, and understanding confirmed on 08/19/2023 18:19:20 (ET). Electronically Signed: Dorian Castle MD at 18:13 EST , Brain CT 08/19/23 16:10 IMPRESSION: No acute intracranial abnormality. Chronic involutional and ischemic changes of the brain. Electronically Signed: Dorian Castle MD at 16:45 EST , Rhythm Strip Rhythm Strip: Sinus Tach Rate: 148 Ectopy: None Physical Exam Const Constitutional Narrative: awake. non-verbal. afebrile. HEENT head/scalp atraumatic and moist oral mucous membranes Resp normal respiratory effort, no retractions, no use of accessory muscles and clear to auscultation bilaterally Cardio regular rate, regular rhythm, S1 normal heart sound and S2 normal heart sound GI GI Narrative: distended. diffusely tender. hypoactive BS. Assessment & Plan Assessment/Plan (1) Constipation: PLAN: Plan Sepsis * Present on admission with a qSOFA of 2 due to respiratory rate greater than or equal to 22 and a change in mental status. SIRS 4/4 (Tmax 39.8, HR 139, RR 23, WBC 23k) * UA unremarkable--UTI ruled out. CXR unremarkable--pneumonia ruled out. * Does have massively distended large bowel obstruction with possible LBO and questionable pneumatosis intestinalis * Continue with broad spectrum antibiotics. Follow up with cultures Distended large bowel * CT concerning for LBO +/- pneumatosis intestinalis * General surgery on consult. * NPO * repeat CT pending. HUGO * POA * continue IVF Metabolic encephalopathy * 2/2 sepsis, dehydration, distended bowel. Chronic conditions: * seizure disorder-patient will be kept on her seizure medications that she takes at the [facility] * hypothyroidism-patient will remain on Synthroid * chronic pain-patient is on methadone at the [facility] on a program basis, I will lower the dose to 5 mg 3 times daily * chronic depression-patient will remain on her [facility] medications * hyperlipidemia-patient is on atorvastatin VTE prophylaxis: SQ heparin. Charges/Coding Visit Charges Inpatient E&M: 25744 Subs Hosp L2
--- NOTE | 2023-08-20 08:08 | CT_ITS ---
STUDY: CT ABDOMEN AND PELVIS WITHOUT CONTRAST REASON FOR EXAM: Female, 72 years old. Diffuse abdominal pain RADIATION DOSAGE (If Supplied By Facility): CTDIvol = ( 9.25 ) mGy, DLP = ( 515.49 ) mGycm TECHNIQUE: Transaxial images were obtained from the dome of the diaphragm to the symphysis pubis without oral contrast, and without intravenous contrast. Sagittal and coronal images were reconstructed. Individualized dose optimization techniques were used for this CT. COMPARISON: Yesterday FINDINGS: Chronic interstitial changes in the lung bases without a superimposed process or significant change since yesterday. The visualized portions of the heart are within normal limits. Stable large retrocardiac hiatal hernia Normal liver. There are surgical clips in the gallbladder fossa consistent with a prior cholecystectomy. Normal spleen. Normal pancreas. Normal bilateral adrenal glands. Right kidney continues to show mild hydronephrosis and hydroureter without obstructing stone. Left kidney and collecting system is free of obstructive uropathy. Normal visualized stomach. Nondistended fluid-filled small bowel loops with ileus. The entire colon is again noted to be abnormally distended and filled with stool. There is again concern of pneumatosis noted in the mid and distal sigmoid colon best seen on the coronal images. Sigmoid colon again measures more than 10 cm in diameter. Appendix not visualized. There is diffuse atherosclerotic calcification of the abdominal aorta, without a demonstrated aneurysm. Normal inferior vena cava. Normal retroperitoneum. Bladder is decompressed due to a Lewis catheter. Normal abdominal wall. Degenerative bony changes noted, replaced right hip joint free of complication. CT/Abdomen/Pelvis without Cont IMPRESSION: No significant interval change since the previous study, findings again suggestive of large bowel obstruction secondary to retained stool. Pneumatosis is again suspected particularly in the sigmoid colon best seen on the coronal images. The sigmoid colon measures greater than 10 cm in diameter. Small bowel ileus likely due to the retained stool Persistent right hydronephrosis and hydroureter again likely due to extrinsic compression from retained stool Large retrocardiac hiatal hernia Electronically Signed: Edsion Lawrence MD at 14:31 EST ,
--- NOTE | 2023-08-20 08:09 | PCM.PN.SRG ---
Subjective Subjective The patient had soapsuds enema last night and had several large copious bowel movements. Objective Data Objective Data Vital Signs: Vital Signs Temp Pulse Resp BP Pulse Ox O2 Del Method O2 Flow Rate 98.3 F 80 20 H 116/77 94 Room Air 2 08/20/23 07:56 08/20/23 07:56 08/20/23 07:56 08/20/23 07:56 08/20/23 07:56 08/20/23 07:56 08/20/23 06:46 Oxygen Flow Rate (L/min) 2 Oxygen Delivery Method Room Air Weight: 137 lb 9.095 oz Body Mass Index (BMI) 22.8 Intake & Output: Intake and Output for Last 24 Hours 08/18/23 08/19/23 08/20/23 23:59 23:59 23:59 Intake Total 2320.83 / 2320.83 672.08 / 672.08 Output Total 1000 / 1000 400 / 400 Balance 1320.83 / 1320.83 272.08 / 272.08 Lab / Micro Data 08/19/23 14:58 08/19/23 14:58 Labs: Laboratory Results - last 24 hr 08/19/23 14:58: WBC 23.1 H, RBC 3.85 L, Hgb 10.8 L, Hct 36.7 L, MCV 95.3, MCH 28.1, MCHC 29.4 L, RDW Std Deviation 52.3 H, RDW Coeff of Jordin 15.0 H, Plt Count 548 H, MPV 8.6, Immature Gran % (Auto) 1.000 H, Neut % (Auto) 85.4 H, Lymph % (Auto) 5.8 L, [place] % (Auto) 7.2, Eos % (Auto) 0.3, Baso % (Auto) 0.3, Absolute Neuts (auto) 19.7 H, Absolute Lymphs (auto) 1.34, Nucleated RBC % 0, Differential Comment SCANNED, Diff Path Review October, PT 17.7 H, INR 1.5, APTT 46.2 H, Sodium 147 H, Potassium 5.2 H, Chloride 119 H, Carbon Dioxide 20.0 L, Anion Gap 8, BUN 40 H, Creatinine 1.24 H, Estim Creat Clear Calc 36.36, Est GFR (MDRD) Af Amer 54 L, Est GFR (MDRD) Non-Af 45 L, BUN/Creatinine Ratio 32.3 H, Glucose 245 H, Lactic Acid 1.3, Calcium 8.4 L, Total Bilirubin 0.60, AST 64 H, ALT 25, Alkaline Phosphatase 121 H, Total Protein 6.4, Albumin 1.9 L, Globulin 4.5 H, Albumin/Globulin Ratio 0.4 L 08/19/23 15:20: Urine Color Yellow, Urine Clarity Clear, Urine pH 5.0, Ur Specific Carmine 1.015, Urine Protein 15 H, Urine Glucose (UA) Normal, Urine Ketones 5 H, Urine Occult Blood 10 H, Urine Nitrite Negative, Urine Bilirubin 1 H, Urine Urobilinogen 1 H, Ur Leukocyte Esterase 25 H, Urine RBC 0 SEEN, Urine WBC 0-5 SEEN, Ur Squamous Epith Cells 0 SEEN, Urine Bacteria 0 SEEN, Urine Mucus 0 SEEN Micro: Microbiology 08/19/23 14:58 Mucosa - Nose SARS-CoV-2, Influenza & RSV (PCR) - Final Radiography Diagnostic Testing: Radiology Impression Chest X-Ray 08/19/23 15:35 IMPRESSION: No acute abnormality is seen. Electronically Signed: Isaias Munroe MD at 15:58 EST , Abdomen/Pelvis CT 08/19/23 16:10 IMPRESSION: Findings concerning for large bowel obstruction secondary to constipation. There is also questionable pneumatosis intestinalis seen in the ascending colon. This is concerning for impending perforation. Recommend surgical consultation. Obstructive uropathy most likely secondary to external compression from colon. Electronically Signed: Dorian Castle MD at 18:13 EST , ADDENDUM: 08/19/23 1826 IMPRESSION: Findings concerning for large bowel obstruction secondary to constipation. There is also questionable pneumatosis intestinalis seen in the ascending colon. This is concerning for impending perforation. Recommend surgical consultation. Obstructive uropathy most likely secondary to external compression from colon. N.B. : The above Results were Read Back by Dorian Castle MD to Driss Ortiz DO, and understanding confirmed on 08/19/2023 18:19:20 (ET). Electronically Signed: Dorian Castle MD at 18:13 EST , Brain CT 08/19/23 16:10 IMPRESSION: No acute intracranial abnormality. Chronic involutional and ischemic changes of the brain. Electronically Signed: Dorian Castle MD at 16:45 EST , Rhythm Strip Rhythm Strip: Sinus Tach Rate: 148 Ectopy: None Physical Exam Const General Appearance: ill appearing Resp normal respiratory effort GI soft to palpation Inspection: abdominal distention Palpation: tender Assessment & Plan Assessment/Plan (1) Constipation: (2) Ileus: PLAN: Plan The patient had 2 enemas overnight. She has not been febrile since around 6 PM. She seemed a little bit more awake and would open her eyes and make eye contact with me but she still would not answer any my questions and was very obtunded. Her abdomen is soft but it seems more tender today. She is still distended. She had several large bowel movements after enemas. I am going to repeat a CT scan without contrast that she just had IV contrast yesterday and did have elevated creatinine just to make sure there is nothing worsening in the abdomen as she is not able to talk to me. Jr Dunlap MD Pager: [facility] [address] [place] [address], [address] [place] [address] Office:
--- NOTE | 2023-08-20 08:32 | NURSING ---
per culture media laboratory assistant states 2 people have tried to draw labs, unable, wonders if can wait to draw at noon when another tech comes, okay to wait per Dr Russell.
[2023-08-20] MEDS: Vancomycin HCl 1,500 MG in 0.9% Normal Saline (500mL Bag) 500 ML 250 MG IV (09:21)
[2023-08-20] MEDS: Menthol/Lanolin/Calamine/Znox 113 GM Tube 1 APPLIC TOPICAL ×2 (09:21→21:00)
[2023-08-20] MEDS: Heparin Injection (Vial) 5,000 UNIT/ML VIAL 5000 UNIT SC ×2 (09:26→21:00)
[2023-08-20] MEDS: CARBOXYMETHYLCELLULOSE SODIUM 1 DRP DROPS OPHTHALMIC ×2 (09:28→21:18)
[2023-08-20] MEDS: Phenobarbital Sodium 65 MG/ML Vial 32.5 MG IM (09:43)
--- NOTE | 2023-08-20 09:49 | PCM.RX.CS ---
Consult Antibiotic Management Pharmacy has been consulted to manage selected antibiotic: Vancomycin Type of Intervention Type of Consult: New start Suspected Infection Suspected Infection: Other (INTRA-ABDOMINAL) Prior Doses of Antibiotics Prior Doses of Antibiotics Received/Current Regimen: Vancomycin 1500 mg IV x 1 given 08/20/23 @ 0921 Labs Labs: Sodium 147 mmol/L (136-145) H 08/19/23 14:58 Potassium 5.2 mmol/L (3.5-5.1) H 08/19/23 14:58 Chloride 119 mmol/L (98-107) H 08/19/23 14:58 Carbon Dioxide 20.0 mmol/L (21.0-32.0) L 08/19/23 14:58 Anion Gap 8 (5-15) 08/19/23 14:58 BUN 40 mg/dL (7-18) H 08/19/23 14:58 Creatinine 1.24 mg/dL (0.55-1.02) H 08/19/23 14:58 Est GFR (MDRD) Af Amer 54 mL/min (>60) L 08/19/23 14:58 Est GFR (MDRD) Non-Af 45 mL/min (>60) L 08/19/23 14:58 BUN/Creatinine Ratio 32.3 RATIO (10-20) H 08/19/23 14:58 Glucose 245 mg/dL (74-106) H 08/19/23 14:58 Microbiology Microbiology: Microbiology 08/19/23 14:58 Mucosa - Nose SARS-CoV-2, Influenza & RSV (PCR) - Final Dosing Weight Weight used for dosin.4 kg Estimated Creatinine Clearance Estimated Creatinine Clearance: ~36 Goal Trough Goal Trough: 15-20 mcg/mL Pharmacy Plan for Drug Dosing Pharmacy Plan for Drug Dosing: Vancomycin 1500 mg IV x 1, subsequent dosing with 750 mg Q24H Pharmacy Service will continue to monitor and adjust dosing as required. Follow-Up Labs Follow-Up Labs: Trough: Vancomycin Date/Time Labs Ordered Labs to be done on [date and time ordered]: 08/22/23 @ 0841
--- NOTE | 2023-08-20 09:55 | PCM.PN.BLA ---
Progress Note CT scan has not been read yet but I did not see any free air or worsening of the colon. It still appears she has copious amounts of stool. I went back up to the room to try to disimpact again like I did last night but still there is only soft stool. We will continue enemas. She is a least a little more awake than she was yesterday.
--- NOTE | 2023-08-20 10:46 | CASEMGMT ---
Social Work Both living will and healthcare POA forms scanned into [employer], Yaakov Sandoval, pt's son, is listed as healthcare POA. CRISTIANO Moreira
--- NOTE | 2023-08-20 11:10 | CASEMGMT ---
Social Work SW reviewed chart, [facility] is here from [facility]. SW called son and KJ Nuno, confirmed plan will be for pt to return to [facility] when medically ready, SNF list not needed at this time. Pt has been there for two years. SW sent updates to Agency via [employer], awaiting answer if pt okay to return on the weekend if she is ready. SW will place green sheet on chart if Agency states pt can return on the weekend. CRISTIANO Moreira
--- NOTE | 2023-08-20 11:36 | CASEMGMT ---
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 SW placed green sheet and transport form on chart. CRISTIANO Moreira
[2023-08-20 13:40] LABS: Anion Gap 9 (5-15); BUN 35 mg/dL (7-18); BUN/Creat Ratio 39.5 RATIO (10-20); Calcium,Total 7.5 mg/dL (8.5-10.1); Chloride 124 mmol/L (98-107); Creatinine, Serum 0.88 mg/dL (0.55-1.02); EST Glomerular Filtration Rate 66 mL/min (>60); Est Glom Filt Rate - Afr Amer 80 mL/min (>60); Estimated Creatinine Clearance 51.23 ml/min; Glucose 196 mg/dL (74-106); Potassium 3.9 mmol/L (3.5-5.1); Sodium Level 149 mmol/L (136-145)
--- NOTE | 2023-08-20 15:50 | EKG12_ITS ---
Test Reason : Blood Pressure : / mmHG Vent. Rate : 130 BPM Atrial Rate : 130 BPM P-R Int : 122 ms QRS Dur : 088 ms QT Int : 322 ms P-R-T Axes : 036 -36 086 degrees QTc Int : 473 ms Sinus tachycardia Left axis deviation Abnormal ECG When compared with ECG of 20-AUG-2023 16:13, MANUAL COMPARISON REQUIRED, DATA IS UNCONFIRMED Confirmed by Wayne Mariano ([id number]), editor map WESLY CASTAÑEDA ([id number]) on 08/23/2023 9:44:58 AM Referred By: AKTE Confirmed By:Wayne Mariano
[2023-08-20 16:46] LABS: Absolute Lymphocyte Count 0.93 X10^3/uL (0.83-4.51); Absolute Neutrophil Count 24.8 X10^3/uL (2.0-7.7); Basophil# 0.07 X10^3/uL; Basophil% 0.3 % (0-1); Eosinophil# 0.08 X10^3/uL; Eosinophils% 0.3 % (0-5); Lymphocyte # 0.93 X10^3/ul (0.83-4.51); Lymphocyte % 3.4 % (19-41); Mean Corpuscular Hgb 28.6 pg (27.0-32.0); Mean Corpuscular Volume 95.2 fL (81-99); Mean Platelet Vol. 8.7 fl (6.2-12.0); Monocyte# 1.58 X10^3/uL; Monocyte% 5.7 % (0-10); NRBC Flagged by Analyzer 0 % (0-5); Neutrophil # 24.82 X10^3/uL (2.7-7.7); Neutrophil % 89.4 % (47-70); POSITIVE DIFFERENTIAL YES; Platelet Count 413 K/mm3 (150-450); RBC Distribution Width CV 15.2 % (11.6-14.6); RBC Distribution Width SD 52.9 fl (35.1-43.9); Red Blood Count 3.15 M/mm3 (4.2-5.4); White Blood Count 27.7 K/mm3 (4.4-11.0)
[2023-08-20 16:50] LABS: Differential Indicated SCAN CRITERIA MET
[2023-08-20] MEDS: Acetaminophen 650 MG Suppository RC (16:53)
[2023-08-20] MEDS: Meropenem 1 GM in 0.9% Normal Saline (100mL MB+) 100 ML IV (20:58)
[2023-08-20] MEDS: Ondansetron 4 MG/2 ML Vial IV (20:59)
[2023-08-20] MEDS: Ketorolac 15 MG/ML Vial IV (20:59)
[2023-08-20] MEDS: 0.9% Saline Lock 10 ML Syringe IV (20:59)
[2023-08-20] MEDS: Phenobarbital 32.4 MG Tablet 32.3999999999999986 MG PO (21:14)
[2023-08-20] MEDS: Pramipexole Di-HCl 1 MG Tablet PO (21:14)
[2023-08-20] MEDS: Pantoprazole Sodium 40 MG Tablet PO (21:29)
[2023-08-20] MEDS: RisperiDONE 0.5 MG Tablet PO (21:29)
[2023-08-20] MEDS: Benztropine 2 MG Tablet PO (21:29)
[2023-08-20] MEDS: 0.9% Normal Saline (250mL Bag) 250 ML 15 ML IV (21:32)
[2023-08-20] MEDS: DULoxetine Hcl 20 MG Capsule PO (21:33)
[2023-08-20] MEDS: OXcarbazepine 600 MG Tablet PO (23:08)
[2023-08-20] MEDS: Latanoprost 0.005% 1 Bottle 1 DRP EACH EYE (23:08)
[2023-08-20] MEDS: Atorvastatin Calcium 40 MG Tablet PO (23:08)
[2023-08-21] VITALS (11 sets, daily range): BP systolic 71–130; BP diastolic 34–92; PULSE 68–130; RESP 18–32; TEMP 36.1–36.8; O2SAT 89–98
[2023-08-21] MEDS: 0.9% Normal Saline (1000mL) 1,000 ML 125 ML IV (02:00)
[2023-08-21] MEDS: 0.9% Saline Lock 10 ML Syringe IV ×2 (04:54→12:15)
[2023-08-21] MEDS: Ketorolac 15 MG/ML Vial IV (04:54)
[2023-08-21 05:28] LABS: Absolute Neutrophil Count 15.5 X10^3/uL (2.0-7.7); Basophil# 0.11 X10^3/uL; Basophil% 0.6 % (0-1); Hematocrit 29.5 % (37-47); Hemoglobin 8.6 g/dL (12.0-15.0); Lymphocyte % 5.7 % (19-41); Mean Corp Hgb Conc 29.2 g/dL (32-36); Mean Corpuscular Hgb 28.4 pg (27.0-32.0); Mean Corpuscular Volume 97.4 fL (81-99); Mean Platelet Vol. 8.9 fl (6.2-12.0); Monocyte# 0.81 X10^3/uL; Monocyte% 4.6 % (0-10); NRBC Flagged by Analyzer 0.3 % (0-5); POSITIVE MORPHOLOGY YES; Platelet Count 354 K/mm3 (150-450); RBC Distribution Width CV 15.7 % (11.6-14.6); RBC Distribution Width SD 55.4 fl (35.1-43.9); Red Blood Count 3.03 M/mm3 (4.2-5.4); White Blood Count 17.6 K/mm3 (4.4-11.0)
[2023-08-21 05:29] LABS: Differential Indicated SCAN CRITERIA MET
[2023-08-21] MEDS: 0.9% Normal Saline (1000mL) 1,000 ML 999 ML IV (05:42)
--- NOTE | 2023-08-21 05:55 | RAD_ITS ---
We are attempting to reach an attending provider to discuss findings. An addendum with communication details will be sent when the communication is complete. EXAM: XR CHEST, 1 VIEW CLINICAL INDICATION: labored breathing TECHNIQUE: Frontal view of the chest. COMPARISON: Chest radiograph August 19, 2023. CT abdomen and pelvis August 20, 2023 showing a large amount of stool especially in the distal colon wall thickening and submucosal pneumatosis in the distal colon and rectum. FINDINGS: LUNGS AND PLEURAL SPACES: Unremarkable. No pneumothorax. No significant infiltrates or effusions. HEART: Unremarkable. Cardiac silhouette not enlarged. MEDIASTINUM: Central airways and mediastinal contour are unremarkable. BONES/JOINTS: See above. SOFT TISSUES: Unremarkable. TUBES, LINES AND DEVICES: Right upper extremity PICC line catheter seen with its tip over the mid-distal SVC. UPPER ABDOMEN: There is a large amount of free intraperitoneal air underlying the bilateral central hemidiaphragms. Portable upright exam. OTHER FINDINGS: Patient is rotated to the right. RAD/Chest 1 View (Portable) IMPRESSION: Large amount of free intraperitoneal air, new from prior exams. I will inquire concerning whether the patient is postoperative. Electronically Signed: Aliza Quintanilla MD at 7:52 EST ,
--- NOTE | 2023-08-21 06:03 | EKG12_ITS ---
Test Reason : tachy Blood Pressure : / mmHG Vent. Rate : 134 BPM Atrial Rate : 134 BPM P-R Int : 150 ms QRS Dur : 100 ms QT Int : 274 ms P-R-T Axes : 066 -45 192 degrees QTc Int : 409 ms Sinus tachycardia Left axis deviation ST & T wave abnormality, consider lateral ischemia Abnormal ECG When compared with ECG of 19-AUG-2023 14:43, MANUAL COMPARISON REQUIRED, DATA IS UNCONFIRMED Confirmed by Wayne Mariano ([id number]), editorial director WESLY CASTAÑEDA ([id number]) on 08/23/2023 2:24:07 PM Referred By: Confirmed By:Wayne Mariano
[2023-08-21 06:10] LABS: BNP,B-Type NATRIURETIC PEPTIDE 132.6 pg/mL (0-100)
[2023-08-21 06:22] LABS: Blood Gas Specimen Type VEN; O2 Delivery Device Not entered; SITE Not entered; VBG BASE EXCESS -11 mmol/L (-1.0-3.5); VBG Bicarbonate 15 mmol/L (22-26); VBG PO2 58 mmHg (25-40); VBG SO2 88 % (50-70); VBG TCO2 16 mmol/L (23-33); VBG pCO2 29.7 mmHg (41-51); VBG pH 7.32 (7.32-7.42)
[2023-08-21 06:39] LABS: Differential Comment SCANNED
[2023-08-21 06:40] LABS: Troponin-I HS 325 pg/mL (3.0-54.0)
[2023-08-21 06:40] LABS: ALB/GLOB Ratio 0.4 RATIO (0.9-2.4); AST(SGOT) 80 U/L (15-37); Alanine Aminotransfer ALT/SGPT 39 U/L (13-56); Albumin, Serum 1.4 g/dL (3.2-5.0); Alkaline Phosphatase 98 U/L (45-117); Anion Gap 9 (5-15); BUN 45 mg/dL (7-18); BUN/Creat Ratio 32.1 RATIO (10-20); Calcium,Total 6.8 mg/dL (8.5-10.1); Chloride 128 mmol/L (98-107); EST Glomerular Filtration Rate 39 mL/min (>60); Est Glom Filt Rate - Afr Amer 47 mL/min (>60); Globulin 3.9 g/dL (2.2-4.2); Glucose 211 mg/dL (74-106); Prealbumin 3.1 mg/dL (20.0-40.0); Protein, Total 5.3 g/dL (6.4-8.2); Sodium Level 155 mmol/L (136-145)
[2023-08-21 06:40] LABS: Lactic Acid 3.2 mmol/L (0.4-1.9)
--- NOTE | 2023-08-21 06:40 | NURSING ---
called pt son to let him know pt not as responsive this am, has low bp, is aware. confirmed with son that pt doesn't want cpr or intubation but if medication could help pt would want this. notified and he will call son
--- NOTE | 2023-08-21 06:50 | PCM.HOSP.N ---
Hospitalist Note I was notified late in the shift that this patient dropped her blood pressure into the ~70 mm Hg range in spite of maintenance IVF and IV Vancomycin and IV Merrem. She was initially treated with a NS fluid bolus which only temporarily helped and then she was ordered Albumin 25g IV once which is pending at this time. Her VBG revealed a pH 7.32 and her lactate was 3.2 mmol/L along with an elevated troponin of 325 pg/mL with patient clinically appearing to be moribund. I left a message with her son/KJ Sandoval and briefly explained we were supporting her medically. He affirmed to the 3rd floor RN that he wanted to continue her DNR-CC status with no intubation and that he only wanted conservative medical treatment. I also updated my dayshift colleague on the overnight events and I expressed my opinion that I do not expect this patient to survive this admission.
[2023-08-21] MEDS: Albumin Human 25% (100 mL) 25 GM/100 ML BAG IV (06:56)
--- NOTE | 2023-08-21 07:15 | CPS ---
unable to obtain quality pulse oximeter reading at this time.
--- NOTE | 2023-08-21 07:42 | PN.HOSP_ITS ---
Reason for Visit Reason for Visit: Diagnoses Ileus, unspecified (08/19/23) Constipation, unspecified (08/19/23) Subjective Subjective Hypotensive overnight, continue to worsen overnight with increasing lactic acid and troponins. Objective Data Objective Data Vital Signs: Vital Signs Temp Pulse Resp BP Pulse Ox O2 Del Method O2 Flow Rate 36.3 C L 124 H 32 H 121/92 H 96 Non-Rebreather @ 15L/min and High Flow 15 08/21/23 06:18 08/21/23 07:08 08/21/23 07:08 08/21/23 07:08 08/21/23 07:08 08/21/23 07:08 08/21/23 06:08 Oxygen Flow Rate (L/min) 15 Oxygen Delivery Method Non-Rebreather @ 15L/min Weight: 62.4 kg Body Mass Index (BMI) 22.8 Intake & Output: Intake and Output for Last 24 Hours 08/19/23 08/20/23 08/21/23 23:59 23:59 23:59 Intake Total 2320.83 / 2320.83 1422.91 / 1422.91 2456.42 / 2456.42 Output Total 1000 / 1000 1450 / 1450 100 / 100 Balance 1320.83 / 1320.83 -27.09 / -27.09 2356.42 / 2356.42 Lab / Micro Data 08/21/23 05:15 08/21/23 05:15 Labs: Laboratory Results - last 24 hr 08/20/23 13:15: Sodium 149 H, Potassium 3.9, Chloride 124 H, Carbon Dioxide 16.0 L, Anion Gap 9, BUN 35 H, Creatinine 0.88, Estim Creat Clear Calc 51.23, Est GFR (MDRD) Af Amer 80, Est GFR (MDRD) Non-Af 66, BUN/Creatinine Ratio 39.5 H, Glucose 196 H, Calcium 7.5 L 08/20/23 16:33: WBC 27.7 H, RBC 3.15 L, Hgb 9.0 L, Hct 30.0 L, MCV 95.2, MCH 28.6, MCHC 30.0 L, RDW Std Deviation 52.9 H, RDW Coeff of Jordin 15.2 H, Plt Count 413, MPV 8.7, Immature Gran % (Auto) 0.900, Neut % (Auto) 89.4 H, Lymph % (Auto) 3.4 L, [place] % (Auto) 5.7, Eos % (Auto) 0.3, Baso % (Auto) 0.3, Absolute Neuts (auto) 24.8 H, Absolute Lymphs (auto) 0.93, Nucleated RBC % 0, Differential Comment 08/21/23 05:15: WBC 17.6 H, RBC 3.03 L, Hgb 8.6 L, Hct 29.5 L, MCV 97.4, MCH 28.4, MCHC 29.2 L, RDW Std Deviation 55.4 H, RDW Coeff of Jordin 15.7 H, Plt Count 354, MPV 8.9, Immature Gran % (Auto) 1.100 H, Neut % (Auto) 88.0 H, Lymph % (Aut o) 5.7 L, [place] % (Auto) 4.6, Eos % (Auto) 0.0, Baso % (Auto) 0.6, Absolute Neuts (auto) 15.5 H, Absolute Lymphs (auto) 1.00, Nucleated RBC % 0.3, Differential Comment SCANNED, Sodium 155 H, Potassium 4.0, Chloride 128 H*, Carbon Dioxide 18.0 L, Anion Gap 9, BUN 45 H, Creatinine 1.40 H, Estim Creat Clear Calc 32.20, Est GFR (MDRD) Af Amer 47 L, Est GFR (MDRD) Non-Af 39 L, BUN/Creatinine Ratio 32.1 H, Glucose 211 H, Calcium 6.8 L, Total Bilirubin 0.70, AST 80 H, ALT 39, Alkaline Phosphatase 98, B-Natriuretic Peptide 132.6 H, Total Protein 5.3 L, Albumin 1.4 L, Globulin 3.9, Albumin/Globulin Ratio 0.4 L, Prealbumin 3.1 L, Blood Type A POSITIVE, Antibody Screen NEGATIVE 08/21/23 05:26: Troponin I High Sens 325 H* 08/21/23 05:45: Lactic Acid 3.2 H* Micro: Microbiology 08/20/23 22:30 Stool Stool Occult Blood (JASWANT) - Final Occult Blood Positive 08/19/23 14:58 Mucosa - Nose SARS-CoV-2, Influenza & RSV (PCR) - Final ABG Data ABG results: ABG 08/21/23 06:18 Specimen Type NIKOLAS Sample Site Not entered VBG pH 7.32 VBG pO2 58 H VBG HCO3 15 L VBG Total CO2 16 L VBG O2 Sat (Calc) 88 H VBG Base Excess -11 L POC Mix VBG pCO2 Pt Tmp 29.7 L O2 Delivery Device Not entered Radiography Diagnostic Testing: Radiology Impression Abdomen/Pelvis CT 08/20/23 08:08 IMPRESSION: No significant interval change since the previous study, findings again suggestive of large bowel obstruction secondary to retained stool. Pneumatosis is again suspected particularly in the sigmoid colon best seen on the coronal images. The sigmoid colon measures greater than 10 cm in diameter. Small bowel ileus likely due to the retained stool Persistent right hydronephrosis and hydroureter again likely due to extrinsic compression from retained stool Large retrocardiac hiatal hernia Electronically Signed: Edison Lawrence MD at 14:31 EST Reading Location ID and State: [address] [place] [address] , Service support , Rhythm Strip Rhythm Strip: Sinus Tach Rate: 148 Ectopy: None Physical Exam Const Constitutional Narrative: Unresponsive to verbal or noxious stimuli. Appears uncomfortable. Mottling of the lower extremities. Abdomen is tight and distended diffusely tender. HEENT HEENT Narrative: Temporal wasting. Resp Resp Narrative: Tachypneic. Cardio regular rate, regular rhythm, S1 normal heart sound and S2 normal heart sound GI Auscultation: hypoactive bowel sounds Extremity Extremity Narrative: Edema. Mottling on lower extremities Assessment & Plan Assessment/Plan (1) Constipation: PLAN: Plan Perforated viscus * Air seen underneath the diaphragm. Discussed with Dr. Dunlap. He is concerned the patient would not heal from surgery given her poor albumin and poor performance status. Medically I do not feel the patient would be a surgical candidate that would even remotely survive even a mild surgery given her condition. * Discussed with the patient's son, Yaakov. Recommended comfort measures and hospice services. He was certainly distraught but is agreeable. He understands that the patient may not survive very long. Sepsis * Suspect bowel related given the large loops of bowel that were noted previously and now with a perforated viscus. Unclear if patient had necrotic bowel that finally was compromised. * Present on admission with a qSOFA of 2 due to respiratory rate greater than or equal to 22 and a change in mental status. SIRS 4/4 (Tmax 39.8, HR 139, RR 23, WBC 23k) * UA unremarkable--UTI ruled out. CXR unremarkable--pneumonia ruled out. * Does have massively distended large bowel obstruction with possible LBO and questionable pneumatosis intestinalis * Continue with broad spectrum antibiotics. Follow up with cultures HUGO * POA * No additional workup as patient is currently hospice Metabolic encephalopathy * 2/2 sepsis, dehydration, distended bowel. Chronic conditions: * seizure disorder-patient will be kept on her seizure medications that she takes at the senior care * hypothyroidism-patient will remain on Synthroid * chronic pain-patient is on methadone at the senior care on a program basis, I will lower the dose to 5 mg 3 times daily * chronic depression-patient will remain on her senior care medications * hyperlipidemia-patient is on atorvastatin VTE prophylaxis: SQ heparin. Advance care planning: Spent additional 60 minutes where I discussed with the patient's son, Yaakov. Explained her situation, her active dying and discussing CODE STATUS and comfort measures. Charges/Coding Visit Charges Inpatient E&M: 60205 Subs Hosp L2 Procedures Hospitalists Procedures: 13872 Advncd Care Plan 30 Min
--- NOTE | 2023-08-21 07:47 | NURSING ---
Dr. Collado and Dr. Dunlap here and assessed pt. Dr. Dunlap spoke to son, pt will have comfort measures. 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 Dayshift rn assuming care aware. pt resting comfortably in bed at this time.
--- NOTE | 2023-08-21 07:50 | NURSING ---
pt hypotensive and less responsive this am at appx 0500 charge nurse notified, am labs drawn as pt had been having diarrhea with dark red during night. 0535 Dr. Medellin notified and asked to come and see pt, new orders given. pt had stat labs, chest xray and ivf wo per order, bp improved, 0605 Dr. Mccallum saw pt, 0610 dr called son. see physicians notifications intervention also.
--- NOTE | 2023-08-21 07:51 | NURSING ---
This RN notified by primary RN, Charlotte of pts hypotension and change of condition approx 0510 this AM. at 0515 basic labs were drawn. Driver was notified at 0535 and asked to come see pt, as labs had showed an occult pos stool with a slight drob in hgb. primary RN and this RN unable to obtain a pulse ox. unable to obtain ABG d/t weak pulse bilaterally. 0540 Vignesh called this RN to put in stat orders of 1L ns bolus, LA, BNP, VBG, cxray, ekg, and troponin. 0605 Driver up to floor to assess pt. 0610 Driver called family to update on status.
--- NOTE | 2023-08-21 08:35 | PN.SURG_ITS ---
Subjective Subjective The patient had worsening overnight Objective Data Objective Data Vital Signs: Vital Signs Temp Pulse Resp BP Pulse Ox O2 Del Method O2 Flow Rate 97.4 F L 124 H 32 H 121/92 H 96 Non-Rebreather @ 15L/min and High Flow 15 08/21/23 06:18 08/21/23 07:08 08/21/23 07:08 08/21/23 07:08 08/21/23 07:08 08/21/23 07:15 08/21/23 06:08 Oxygen Flow Rate (L/min) 15 Oxygen Delivery Method Non-Rebreather @ 15L/min Weight: 137 lb 9.095 oz Body Mass Index (BMI) 22.8 Intake & Output: Intake and Output for Last 24 Hours 08/19/23 08/20/23 08/21/23 23:59 23:59 23:59 Intake Total 2320.83 / 2320.83 1422.91 / 1422.91 2456.42 / 2456.42 Output Total 1000 / 1000 1450 / 1450 100 / 100 Balance 1320.83 / 1320.83 -27.09 / -27.09 2356.42 / 2356.42 Lab / Micro Data 08/21/23 05:15 08/21/23 05:15 Labs: Laboratory Results - last 24 hr 08/20/23 13:15: Sodium 149 H, Potassium 3.9, Chloride 124 H, Carbon Dioxide 16.0 L, Anion Gap 9, BUN 35 H, Creatinine 0.88, Estim Creat Clear Calc 51.23, Est GFR (MDRD) Af Amer 80, Est GFR (MDRD) Non-Af 66, BUN/Creatinine Ratio 39.5 H, Glucose 196 H, Calcium 7.5 L 08/20/23 16:33: WBC 27.7 H, RBC 3.15 L, Hgb 9.0 L, Hct 30.0 L, MCV 95.2, MCH 28. 6, MCHC 30.0 L, RDW Std Deviation 52.9 H, RDW Coeff of Jordin 15.2 H, Plt Count 413, MPV 8.7, Immature Gran % (Auto) 0.900, Neut % (Auto) 89.4 H, Lymph % (Auto) 3.4 L, [place] % (Auto) 5.7, Eos % (Auto) 0.3, Baso % (Auto) 0.3, Absolute Neuts (auto) 24.8 H, Absolute Lymphs (auto) 0.93, Nucleated RBC % 0, Differential Comment 08/21/23 05:15: WBC 17.6 H, RBC 3.03 L, Hgb 8.6 L, Hct 29.5 L, MCV 97.4, MCH 28.4, MCHC 29.2 L, RDW Std Deviation 55.4 H, RDW Coeff of Jordin 15.7 H, Plt Count 354, MPV 8.9, Immature Gran % (Auto) 1.100 H, Neut % (Auto) 88.0 H, Lymph % (Auto) 5.7 L, [place] % (Auto) 4.6, Eos % (Auto) 0.0, Baso % (Auto) 0.6, Absolute Neuts (auto) 15.5 H, Absolute Lymphs (auto) 1.00, Nucleated RBC % 0.3, Differential Comment SCANNED, Sodium 155 H, Potassium 4.0, Chloride 128 H*, Carbon Dioxide 18.0 L, Anion Gap 9, BUN 45 H, Creatinine 1.40 H, Estim Creat Clear Calc 32.20, Est GFR (MDRD) Af Amer 47 L, Est GFR (MDRD) Non-Af 39 L, BUN/Creatinine Ratio 32.1 H, Glucose 211 H, Calcium 6.8 L, Total Bilirubin 0.70, AST 80 H, ALT 39, Alkaline Phosphatase 98, B-Natriuretic Peptide 132.6 H, Total Protein 5.3 L, Albumin 1.4 L, Globulin 3.9, Albumin/Globulin Ratio 0.4 L, Prealbumin 3.1 L, Blood Type A POSITIVE, Antibody Screen NEGATIVE 08/21/23 05:26: Troponin I High Sens 325 H* 08/21/23 05:45: Lactic Acid 3.2 H* Micro: Microbiology 08/20/23 22:30 Stool Stool Occult Blood (JASWANT) - Final Occult Blood Positive 08/19/23 14:58 Mucosa - Nose SARS-CoV-2, Influenza & RSV (PCR) - Final ABG Data ABG results: ABG 08/21/23 06:18 Specimen Type NIKOLAS Sample Site Not entered VBG pH 7.32 VBG pO2 58 H VBG HCO3 15 L VBG Total CO2 16 L VBG O2 Sat (Calc) 88 H VBG Base Excess -11 L POC Mix VBG pCO2 Pt Tmp 29.7 L O2 Delivery Device Not entered Radiography Diagnostic Testing: Radiology Impression Abdomen/Pelvis CT 08/20/23 08:08 IMPRESSION: No significant interval change since the previous study, findings again suggestive of large bowel obstruction secondary to retained stool. Pneumatosis is again suspected particularly in the sigmoid colon best seen on the coronal images. The sigmoid colon measures greater than 10 cm in diameter. Small bowel ileus likely due to the retained stool Persistent right hydronephrosis and hydroureter again likely due to extrinsic compression from retained stool Large retrocardiac hiatal hernia Electronically Signed: Edison Lawrence MD at 14:31 EST , Chest X-Ray 08/21/23 05:55 IMPRESSION: Large amount of free intraperitoneal air, new from prior exams. I will inquire concerning whether the patient is postoperative. Electronically Signed: Aliza Quintanilla MD at 7:52 EST , ADDENDUM: 08/21/23 0810 IMPRESSION: Large amount of free intraperitoneal air, new from prior exams. I will inquire concerning whether the patient is postoperative. N.B. : The above Results were Read Back by Aliza Quintanilla MD to Priya Rodriguez RN, and understanding confirmed on 08/21/2023 08:03:39 (ET). Electronically Signed: Aliza Quintanilla MD at 7:52 EST , Rhythm Strip Rhythm Strip: Sinus Tach Rate: 148 Ectopy: None Physical Exam Const General Appearance: ill appearing Resp normal respiratory effort Cardio Rate: tachycardic GI Inspection: abdominal distention Palpation: tender Assessment & Plan Assessment/Plan (1) Perforated bowel: (2) Sepsis: PLAN: Plan The patient had a repeat CT scan yesterday which did not show any free air but there is still copious stool in the colon. Overnight the patient became more tachypneic and tachycardic. Chest x-ray from this morning shows a large amount of free air under the diaphragm. I discussed with the patient's son. I had a long discussion with him about his mother's situation. This morning the patient's prealbumin is 3. She is very malnutritioned and unresponsive this morning. I discussed this with the patient's son and the patient is DNR CCA with no wants for intubation or CPR. I recommended hospice care for palliation. The patient's son is trying to make it up from [place] to see her and I informed him that we would do our best to keep her until he can make it appear. I did inform him that it was unlikely she would make it through the day with her septic situation. The patient's son discussed this with Dr. Collado in detail and made the patient DNR CC and ordered hospice consult. Jr Dunlap MD Pager: [facility] [address] [place] [address], [address] [place] [address] Office:
[2023-08-21 09:56] LABS: Reflex Lactate? Y
[2023-08-21] MEDS: morphine (oral solution) 10MG/0.5ML Syringe 10 MG SL/PO ×2 (15:14→18:49)
--- NOTE | 2023-08-21 21:28 | NURSING ---
called to pt room by another rn who had been called into room by family, no resp, no pulse verified by this rn and romina lopez. pt at 2124. frit mixer and burner notified. support given to family. family wants to spend some time with pt and will let rn know when ready for pt to go to home.
--- NOTE | 2023-08-21 21:52 | NURSING ---
This RN was notified by primary RN Charlotte that pt passed at 2124. Dr Medellin, hospital french folding machine operator and Nursing supervisory cbp officer made aware at 2129. Dr Dunlap notified at 2154. [facility] called and notified at 2136. Case number is [id number]. Genterpret gave okay to release body.
--- NOTE | 2023-08-21 22:51 | NURSING ---
phone call to [facility], [facility] where pt was from, called and spoke to RN on duty and updated that pt has . 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
--- NOTE | 2023-08-21 22:52 | NURSING ---
post mortem care complete awaiting [facility] home arrival
--- NOTE | 2023-08-21 23:06 | NURSING ---
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
--- NOTE | 2023-08-21 23:08 | NURSING ---
nate home here and left with pt, nursing mine supervisor accompanied
--- NOTE | 2023-08-22 00:27 | NURSING ---
This RN was asked to come into Room 311 because patient was not breathing. Upon assessment, there was a lack of respirations. No peripheral pulses. No carotid pulses. No apical pulse. This RN called the primary RN, Charlotte, to come into the room. ERIC Porter also confirmed lack of respirations, carotid pulses, and apical pulse. Time of -08/21/239
--- NOTE | 2023-08-22 10:44 | CASEMGMT ---
Jacqueline updated the Avenue that pt yesterday. KRYSTINA Schofield
[2023-08-22 13:09] LABS: Pathologist Review Reviewed
--- NOTE | 2023-08-23 09:36 | EXP.PCM_ITS ---
Preliminary Cause of Preliminary Cause of Preliminary Cause of : perforated viscous Date of Admission: 08/19/23 Date of : 08/21/23 (2124) Principle Diagnosis Problem List: Active and Suspected Problems (Updated 08/21/23 @ 08:[address] Jr Dunlap MD) Perforated bowel (Acute) Constipation (Acute) Ileus (Acute) Fever (Acute) Acute kidney injury (Acute) Sepsis (Acute) Altered level of consciousness (Acute) Acute dehydration (Acute) Hospital Course Patient presented with sepsis. Colon was massively dilated with large quantities of stool. Infectious work up w negative, but pt was placed on antibiotics. General surgery was consulted and enemas Pt remained lethargic during hospit alization. She worsened on the . CXR performed and show air under the diaphragm, indicated that her bowel had perforated. Dr. Dunlap and I updated her son, Yaakov, she would not survive surgery. He agreed to hospice care. She on 08/21/2023 at 2125. Visit Charges Inpatient E&M: 54323 Disch Hosp >30min
== END 2023-08-21 23:06 | DRG 871 ==
LOC: ED 16:52 → MS3 20:14
PROVIDERS: Internal Medicine; Physician Assistant; Admitting Provider Internal Medicine; Emergency Provider Emergency Medicine; PCP Family Medicine
DX: A41.9 Sepsis, unspecified organism (principal); K63.1 Perforation of intestine (nontraumatic); G93.41 Metabolic encephalopathy; N17.9 Acute kidney failure, unspecified; K56.7 Ileus, unspecified; J44.9 Chronic obstructive pulmonary disease, unspecified; G40.909 Epilepsy, unspecified, not intractable, without status epilepticus; E03.9 Hypothyroidism, unspecified; I10 Essential (primary) hypertension; F32.A Depression, unspecified; E86.0 Dehydration; E78.5 Hyperlipidemia, unspecified; I25.2 Old myocardial infarction; G47.33 Obstructive sleep apnea (adult) (pediatric); K21.9 Gastro-esophageal reflux disease without esophagitis; G89.29 Other chronic pain; Z66 Do not resuscitate; Z79.51 Long term (current) use of inhaled steroids; Z79.899 Other long term (current) drug therapy; Z86.718 Personal history of other venous thrombosis and embolism; Z87.891 Personal history of nicotine dependence
CPT/HCPCS: 36415; 36569; 70450; 71045; 74176; 74177; 80048; 80053; 81001; 82274; 82803; 83605; 83880; 84134; 84484; 85025; 85610; 85730; 86850; 86900; 86901; 87040; 87086; 87088; 87631; 92610; 93005; 97802; 99282; J2185; J7030; J7040; J7050; P9047; Q9967; A4216; J2405